=== PATIENT | female | born 1970 | race Caucasian/White ===

== ENCOUNTER → 2018-05-07 12:23 | Outpatient (CLI) | payer MEDICARE, OTHER, SELFPAY ==
--- NOTE | 2018-05-07 12:37 | XR_ITS ---
EXAM: XR lumbar spine min 4V HISTORY: Low back pain ITS.REASON: back pain ORDERING PHYSICIAN: Faustino Amador MD PATIENT AGE: 48 years COMPARISON: 05/14/2017 FINDINGS: Normal alignment. No fracture or dislocation. No lytic or blastic change. Small End plate osteophytes are present from L1 to L4. Mild degenerative disc disease L4-5 and L5-S1. IMPRESSION: Mild lumbar spondylosis overall no change from 05/14/2017
--- NOTE | 2018-05-07 12:37 | XR_ITS ---
XR hip RT 2-3V w/pelvis HISTORY: Right hip pain ITS.REASON: hip pain ORDERING PHYSICIAN: Faustino Amador MD PATIENT AGE: 48 years COMPARISON: None FINDINGS: No fracture or dislocation is evident. No significant degenerative change. There is increased density along the medial wall of the acetabulum. Possibly could represent summation artifact however, this is present on 3 images. Sclerosis at this region is a consideration. Consider CT of the pelvis for further evaluation. No other significant anomalies are evident. IMPRESSION: Possible sclerosis of the medial wall the right acetabulum. Consider CT for confirmation
[2018-05-07 13:55] LABS: Basophils % 0.3 % (0.1-2.0); Eosinophils # 0.2 K/mm3 (0.0-0.4); Eosinophils % 2.2 % (0.1-12.0); Hematocrit 44.7 % (37.0-47.0); Hemoglobin 14.5 g/dL (12.2-16.2); Lymphocytes # 2.3 K/mm3 (0.7-4.5); Lymphocytes % 24.1 K/mm3 (10-50); Mean Corpuscular HGB Conc 32.4 g/dL (31.8-35.4); Mean Corpuscular Hemoglobin 28.5 pg (27.0-31.2); Mean Corpuscular Volume 87.9 fl (81-99); Mean Platelet Volume 7.7 fl (7.4-10.4); Monocytes # 0.5 K/mm3 (0.1-1.0); Monocytes % 4.7 % (1.7-9.3); Neutrophils # 6.6 K/mm3 (1.8-7.8); Neutrophils % 68.7 % (37.0-80.0); Platelet Count 329 K/mm3 (142-424); Red Blood Count 5.09 M/mm3 (4.20-5.40); Red Cell Distribution Width 13.8 % (11.5-17.5); White Blood Count 9.5 K/mm3 (4.8-10.8)
[2018-05-07 14:56] LABS: Alanine Aminotransferase 43 U/L (12-78); Albumin Level 3.4 gm/dL (3.4-5.0); Albumin/Globulin Ratio 0.8 (1.1-1.8); Alkaline Phosphatase 140 U/L (46-116); Anion Gap 12.6 mEq/L (5-15); Aspartate Amino Transferase 23 U/L (15-37); Bilirubin,Total 0.3 mg/dL (0.2-1.0); Blood Urea Nitrogen 10 mg/dL (7-18); Calcium 9.5 mg/dL (8.5-10.1); Carbon Dioxide 28 mmol/L (21.0-32.0); Chloride 104 mmol/L (98-107); Chol/HDL Ratio 4.2 (1-3.5); Cholesterol 187 mg/dL (140-200); Creatinine,Serum 0.72 mg/dL (0.55-1.02); Estimated Glomerular Filt Rate 86 ml/min (>60); Free T4 (Free Thyroxine) 0.73 ng/dl (0.76-1.46); GFR (African American) 104 ML/MIN (>60); Globulin 4.4 gm/dl (1.3-3.2); Glucose 178 mg/dL (74-106); HDL Cholesterol 45 mg/dL (29-89); LDL Cholesterol 100 mg/dL (0-130); Potassium 4.6 mmoL/L (3.5-5.1); Sodium 140 mmol/L (136-145); Total Protein,Serum 7.8 gm/dL (6.4-8.2); Triglycerides 209 mg/dL (30-200); VLDL Cholesterol 42 mg/dL (0-40)
[2018-05-08 08:37] LABS: Hep A Ab, IgM Negative (Negative); Hepatitis B Core Antibody IgM Negative (Negative); Hepatitis B Surface Antigen Negative (Negative)
[2018-05-09 06:50] LABS: Hepatitis C Antibody 0.1 s/co ratio (0.0-0.9)
== END ==
PROVIDERS: Visit Provider Emergency Medicine
DX: G62.9 Polyneuropathy, unspecified (principal); E66.9 Obesity, unspecified; M79.7 Fibromyalgia; R10.9 Unspecified abdominal pain
CPT/HCPCS: 36415; 72110; 73502; 80053; 80061; 80074; 84439; 84443; 85025

== ENCOUNTER → 2018-06-19 08:03 | Outpatient (CLI) | payer MEDICARE, OTHER, SELFPAY | PROVIDERS: Family Provider Family Medicine Geriatric Medicine; PCP Nurse Practitioner Family; Visit Provider Emergency Medicine | DX: M25.551 Pain in right hip (principal) ==

== ENCOUNTER → 2018-07-01 10:17 | Outpatient (CLI) | payer MEDICARE, OTHER, SELFPAY | PROVIDERS: Visit Provider Emergency Medicine | DX: Z79.899 Other long term (current) drug therapy (principal) ==

== ENCOUNTER → 2018-08-01 16:33 | Outpatient (CLI) | payer MEDICARE, OTHER, SELFPAY ==
[2018-08-02 18:32] LABS: Amphetamine/Metha Screen,Urine Negative ng/mL (<1000); Barbiturates Screen,Urine Negative ng/mL (<200); Benzodiazepines Screen,Urine Negative ng/mL (<200); Cannabinoid Screen,Urine Negative ng/mL (<50); Cocaine Screen,Urine Negative ng/mL (<300); Methadone Screen,Urine Negative ng/mL (<300); Opiate Screen,Urine Positive ng/mL (<300); Phencyclidine Screen,Urine Negative ng/mL (<25)
== END ==
PROVIDERS: PCP Emergency Medicine; Visit Provider Emergency Medicine
DX: M79.7 Fibromyalgia (principal)
CPT/HCPCS: 80305

== ENCOUNTER → 2018-08-30 13:19 | Outpatient (CLI) | payer MEDICARE, OTHER, SELFPAY ==
[2018-08-30 14:47] LABS: Amphetamine/Metha Screen,Urine Negative ng/mL (<1000); Barbiturates Screen,Urine Negative ng/mL (<200); Benzodiazepines Screen,Urine Negative ng/mL (<200); Cannabinoid Screen,Urine Negative ng/mL (<50); Cocaine Screen,Urine Negative ng/mL (<300); Methadone Screen,Urine Negative ng/mL (<300); Opiate Screen,Urine Positive ng/mL (<300); Phencyclidine Screen,Urine Negative ng/mL (<25)
== END ==
PROVIDERS: PCP Emergency Medicine; Visit Provider Emergency Medicine
DX: M79.7 Fibromyalgia (principal)
CPT/HCPCS: 80305

== ENCOUNTER → 2018-10-09 10:27 | Outpatient (CLI) | payer MEDICARE, OTHER, SELFPAY ==
--- NOTE | 2018-10-09 10:30 | XR_ITS ---
XR shoulder RT min 2V HISTORY: Shoulder pain with limited range of motion ITS.REASON: pain ORDERING PHYSICIAN: Mandy Adhikari PATIENT AGE: 48 years Comparison: None FINDINGS: There are hypertrophic changes involving the acromioclavicular joint. No significant subacromial stenosis. There are mild degenerative changes of the glenohumeral joint. No fracture or dislocation. No lytic or blastic change. IMPRESSION: Mild degenerative changes, no acute finding
== END ==
PROVIDERS: PCP Emergency Medicine; Visit Provider Nurse Practitioner Family
DX: M25.511 Pain in right shoulder (principal)
CPT/HCPCS: 73030

== ENCOUNTER → 2018-11-04 17:39 | Outpatient (CLI) | payer MEDICARE, OTHER, MEDICAID, SELFPAY ==
[2018-11-04 18:48] LABS: Amphetamine/Metha Screen,Urine Negative ng/mL (<1000); Barbiturates Screen,Urine Negative ng/mL (<200); Benzodiazepines Screen,Urine Negative ng/mL (<200); Cannabinoid Screen,Urine Negative ng/mL (<50); Cocaine Screen,Urine Negative ng/mL (<300); Methadone Screen,Urine Negative ng/mL (<300); Opiate Screen,Urine Negative ng/mL (<300); Phencyclidine Screen,Urine Negative ng/mL (<25)
[2018-11-12 16:12] LABS: Opiates Negative ng/mL (Cutoff=100)
== END ==
LOC: LAB 17:40 → LAB.DROPOF 11-05 08:37
PROVIDERS: Visit Provider Emergency Medicine
DX: M54.2 Cervicalgia (principal)
CPT/HCPCS: 80305; 80361; G0480

== ENCOUNTER 2019-01-17 20:29 | Emergency (ER) | payer MEDICARE, OTHER, SELFPAY ==
[2019-01-17 20:32] VITALS: BP 152/67; PULSE 72; RESP 16; TEMP 36.8; O2SAT 98; BMI 82.6
[2019-01-17 22:02] VITALS: BP 152/67; PULSE 80; RESP 20; O2SAT 99
--- NOTE | 2019-01-17 22:09 | PC.NURSE ---
verbal order for 1 mg of stadol and 25 mg of phenergran given by
--- NOTE | 2019-01-17 22:10 | HMH.EDHA ---
ED Disposition Clinical Impression: Migraine Qualifiers: Migraine type: unspecified Status migrainosus presence: without status migrainosus Intractability: not intractable Qualified Code(s): G43.909 - Migraine, unspecified, not intractable, without status migrainosus Obesity Qualifiers: Obesity type: due to excess calories Obesity classification: adult class 3 (BMI >= 40) Serious obesity comorbidity presence: with serious comorbidity Body mass index: BMI 70 or greater Qualified Code(s): E66.01 - Morbid (severe) obesity due to excess calories; Z68.45 - Body mass index (BMI) 70 or greater, adult Disposition: Home, Self-Care Condition on Discharge: Good Instructions: DI for Migraine Additional Instructions: see pcp for follow up Referrals: Faustino Amador MD [Primary Care Provider] - - Critical Care Critical Care Time: No Attestation: On 01/17/19, the high probability of a clinically significant, sudden or life threatening deterioration of the following system(s) required my full and direct attention, intervention and personal management. The time I documented below is in addition to time spent performing reported procedures but includes the following listed in this critical care notation. Medical Decision Making - Medical Records Medical records reviewed: Yes: I reviewed the patient's medical records. - Sukhjinder Inquiry Pt receiving controlled substance: No Vital Signs: 01/17/19 20:32 Temperature 98.3 F Temperature Source Oral Pulse Rate [Right Brachial] 72 Respiratory Rate 16 Blood Pressure [Right Arm] 152/67 H Blood Pressure Mean [Right Arm] 95 Blood Pressure Source [Right Arm] Automatic Cuff Blood Pressure Position [Right Arm] Sitting 02 Sat by Pulse Oximetry 98 Oxygen Delivery Method Room Air Orders (Tests/Meds): ED MEDICATIONS Discontinued Medications Generic Name Dose Route Start Last Admin Trade Name Freq PRN Reason Stop Dose Admin Butorphanol Tartrate 1 mg 01/17/19 22:08 Stadol 1mg/1ml Vial IM 01/17/19 22:09 ONCE ONE Promethazine HCl 25 mg 01/17/19 22:08 Phenergan 25mg/Ml 1ml Vial IM 01/17/19 22:09 ONCE ONE Sodium Chloride 25 ml 01/17/19 22:08 Sod Chlor 0.9% 25ml Bag IV 01/17/19 22:09 ONCE ONE Headache HPI - General Chief Complaint: Headache Stated Complaint: BENITO Time Seen by Provider: 01/17/19 22:11 Mode of Arrival: Ambulatory Source of Information: Patient, Significant Other, Medical Record Limitations: No Limitations Description of Symptoms (Recalled from ER Triage Doc. by RN): Pt advises she has had a migraine for 4 days - History of Present Illness HPI Narrative: rt sided migraine benito for 4 days - no fever or rash and no trauma - no focal neuro sx MD Complaint: migraine Onset (ago): day(s) Onset description: gradual Location: right, temporal Severity: similar to previous episodes Quality: throbbing, similar to previous headaches Context: occurred at rest Associated symptoms: none Treatments prior to arrival: none - Related Data Home Medications Medication Instructions Recorded Confirmed albuterol sulfate HFA 90 2 puff INHALATION QID g 04/16/18 01/13/19 mcg/actuation aerosol inhaler amitriptyline 100 mg tablet 100 mg PO QHS 04/16/18 01/13/19 apixaban 5 mg tablet 5 mg PO BID 04/16/18 01/13/19 duloxetine 60 mg capsule,delayed 60 mg PO DAILY cap 04/16/18 01/13/19 release escitalopram 20 mg tablet 20 mg PO DAILY tab 04/16/18 01/13/19 fenofibrate micronized 54 mg tablet 54 mg PO DAILY tab 04/16/18 01/13/19 furosemide 80 mg tablet 80 mg PO BID tab 04/16/18 01/13/19 levothyroxine 300 mcg tablet 300 mcg PO DAILY tab 04/16/18 01/13/19 losartan 100 mg tablet 100 mg PO DAILY tab 04/16/18 01/13/19 metoprolol tartrate 50 mg tablet 50 mg PO BID 04/16/18 01/13/19 nitroglycerin 0.4 mg sublingual 0.4 mg SUBLINGUAL Q5-15M 04/16/18 01/13/19 tablet pantoprazole 40 mg tablet,delayed 40 mg PO DAILY tab 04/16/18
--- NOTE | 2019-01-17 22:13 | ED_ITS ---
ED Disposition Clinical Impression: Migraine Qualifiers: Migraine type: unspecified Status migrainosus presence: without status migrainosus Intractability: not intractable Qualified Code(s): G43.909 - Migraine, unspecified, not intractable, without status migrainosus Obesity Qualifiers: Obesity type: due to excess calories Obesity classification: adult class 3 (BMI >= 40) Serious obesity comorbidity presence: with serious comorbidity Body mass index: BMI 70 or greater Qualified Code(s): E66.01 - Morbid (severe) obesity due to excess calories; Z68.45 - Body mass index (BMI) 70 or greater, adult Disposition: Home, Self-Care Condition on Discharge: Good Instructions: DI for Migraine Additional Instructions: see pcp for follow up Referrals: Faustino Amador MD [Primary Care Provider] - - Critical Care Critical Care Time: No Attestation: On 01/17/19, the high probability of a clinically significant, sudden or life threatening deterioration of the following system(s) required my full and direct attention, intervention and personal management. The time I documented below is in addition to time spent performing reported procedures but includes the following listed in this critical care notation. Medical Decision Making - Medical Records Medical records reviewed: Yes: I reviewed the patient's medical records. - Sukhjinder Inquiry Pt receiving controlled substance: No Vital Signs: 01/17/19 20:32 Temperature 98.3 F Temperature Source Oral Pulse Rate [Right Brachial] 72 Respiratory Rate 16 Blood Pressure [Right Arm] 152/67 H Blood Pressure Mean [Right Arm] 95 Blood Pressure Source [Right Arm] Automatic Cuff Blood Pressure Position [Right Arm] Sitting 02 Sat by Pulse Oximetry 98 Oxygen Delivery Method Room Air Orders (Tests/Meds): ED MEDICATIONS Discontinued Medications Generic Name Dose Route Start Last Admin Trade Name Freq PRN Reason Stop Dose Admin Butorphanol Tartrate 1 mg 01/17/19 22:08 Stadol 1mg/1ml Vial IM 01/17/19 22:09 ONCE ONE Promethazine HCl 25 mg 01/17/19 22:08 Phenergan 25mg/Ml 1ml Vial IM 01/17/19 22:09 ONCE ONE Sodium Chloride 25 ml 01/17/19 22:08 Sod Chlor 0.9% 25ml Bag IV 01/17/19 22:09 ONCE ONE Headache HPI - General Chief Complaint: Headache Stated Complaint: BENITO Time Seen by Provider: 01/17/19 22:11 Mode of Arrival: Ambulatory Source of Information: Patient, Significant Other, Medical Record Limitations: No Limitations Description of Symptoms (Recalled from ER Triage Doc. by RN): Pt advises she has had a migraine for 4 days - History of Present Illness HPI Narrative: rt sided migraine benito for 4 days - no fever or rash and no trauma - no focal neuro sx MD Complaint: migraine Onset (ago): day(s) Onset description: gradual Location: right, temporal Severity: similar to previous episodes Quality: throbbing, similar to previous headaches Context: occurred at rest Associated symptoms: none Treatments prior to arrival: none - Related Data Home Medications Medication Instructions Recorded Confirmed albuterol sulfate HFA 90 2 puff INHALATION QID g 04/16/18 01/13/19 mcg/actuation aero
[2019-01-17 22:26] VITALS: BP 147/72; PULSE 87; RESP 16; TEMP 36.8; O2SAT 100
== END 2019-01-17 22:27 | disposition home or self-care (01) ==
PROVIDERS: Emergency Provider Emergency Medicine; PCP Emergency Medicine
DX: G43.909 Migraine, unspecified, not intractable, without status migrainosus (principal); F41.9 Anxiety disorder, unspecified; E03.9 Hypothyroidism, unspecified; Z51.81 Encounter for therapeutic drug level monitoring; E11.9 Type 2 diabetes mellitus without complications; K21.9 Gastro-esophageal reflux disease without esophagitis; E78.5 Hyperlipidemia, unspecified; I10 Essential (primary) hypertension; J44.9 Chronic obstructive pulmonary disease, unspecified
CPT/HCPCS: 96372; 99282; J0595

== ENCOUNTER 2019-02-17 20:22 | Observation (INO) | payer MEDICARE, OTHER, SELFPAY ==
[2019-02-17] VITALS (9 sets, daily range): BP systolic 109–160; BP diastolic 55–96; PULSE 84–93; RESP 15; TEMP 36.9–37; O2SAT 92–98; BMI 82.6
--- NOTE | 2019-02-17 20:30 | XR_ITS ---
XR chest portable HISTORY: Chest pain ITS.REASON: cp ORDERING PHYSICIAN: Faustino Amador MD PATIENT AGE: 48 years COMPARISON: 02/25/2017 FINDINGS: The cardiomediastinal silhouette and pulmonary vascularity are within normal limits. The lungs are clear without infiltrates, suspicious nodules, or pleural effusions. No acute bony abnormalities. IMPRESSION: Negative chest, no acute finding
[2019-02-17 21:24] LABS: Basophils # 0.1 K/mm3 (0-0.2); Basophils % 0.6 % (0.1-2.0); Eosinophils # 0.2 K/mm3 (0.0-0.4); Eosinophils % 1.9 % (0.1-12.0); Hematocrit 44.1 % (37.0-47.0); Hemoglobin 14.8 g/dL (12.2-16.2); Lymphocytes % 20.5 % (10-50); Mean Corpuscular HGB Conc 33.5 g/dL (31.8-35.4); Mean Corpuscular Hemoglobin 29.2 pg (27.0-31.2); Mean Corpuscular Volume 87.4 fl (81-99); Mean Platelet Volume 7.6 fl (7.4-10.4); Monocytes # 0.5 K/mm3 (0.1-1.0); Monocytes % 5.4 % (1.7-9.3); Neutrophils # 6.8 K/mm3 (1.8-7.8); Neutrophils % 71.5 % (37.0-80.0); Platelet Count 302 K/mm3 (142-424); Red Blood Count 5.05 M/mm3 (4.20-5.40); Red Cell Distribution Width 13.3 % (11.5-17.5); White Blood Count 9.5 K/mm3 (4.8-10.8)
[2019-02-17 21:41] LABS: Anion Gap 11.9 mEq/L (5-15); Blood Urea Nitrogen 11 mg/dL (7-18); Carbon Dioxide 28 mmol/L (21.0-32.0); Chloride 94 mmol/L (98-107); Creatinine Clearance Estimated 80 mL/min (50-200); Estimated Glomerular Filt Rate 76 ml/min (>60); GFR (African American) 92 ML/MIN (>60); Glucose 420 mg/dL (74-106); Potassium 3.9 mmoL/L (3.5-5.1); Sodium 130 mmol/L (136-145); Troponin I < 0.02 ng/ml (0.00-0.06)
--- NOTE | 2019-02-17 21:55 | HMH.EDCP ---
ED Disposition Clinical Impression: Fibromyalgia Chest pain Qualifiers: Chest pain type: precordial pain Qualified Code(s): R07.2 - Precordial pain Hypothyroidism Qualifiers: Hypothyroidism type: acquired Qualified Code(s): E03.9 - Hypothyroidism, unspecified Obesity Qualifiers: Obesity type: due to excess calories Obesity classification: adult class 3 (BMI >= 40) Serious obesity comorbidity presence: with serious comorbidity Body mass index: BMI 70 or greater Qualified Code(s): E66.01 - Morbid (severe) obesity due to excess calories; Z68.45 - Body mass index (BMI) 70 or greater, adult Disposition: Admitted as Observation Condition on Discharge: Good Referrals: Faustino Amador MD [Primary Care Provider] - - Critical Care Critical Care Time: No Attestation: On 02/17/19, the high probability of a clinically significant, sudden or life threatening deterioration of the following system(s) required my full and direct attention, intervention and personal management. The time I documented below is in addition to time spent performing reported procedures but includes the following listed in this critical care notation. Medical Decision Making - Medical Records Medical records reviewed: Yes: I reviewed the patient's medical records. - Sukhjinder Inquiry Pt receiving controlled substance: No Vital Signs: 02/17/19 20:23 02/17/19 21:05 02/17/19 21:21 Temperature 98.5 F Temperature Source Oral Pulse Rate [Right Brachial] 90 86 87 Respiratory Rate 15 15 Blood Pressure [Right Arm] 160/96 H 109/71 L 109/71 L Blood Pressure Mean [Right Arm] 117 83 83 02 Sat by Pulse Oximetry 92 L 97 97 Oxygen Delivery Method Room Air Room Air 02/17/19 21:30 Temperature Temperature Source Pulse Rate [Right Brachial] 93 H Respiratory Rate 15 Blood Pressure [Right Arm] 118/55 L Blood Pressure Mean [Right Arm] 76 02 Sat by Pulse Oximetry 96 Oxygen Delivery Method Room Air - Lab Data Lab results reviewed: Yes: I reviewed the patient's lab results. Lab Results 02/17/19 21:14: WBC 9.5, RBC 5.05, Hgb 14.8, Hct 44.1, MCV 87.4, MCH 29.2, MCHC 33.5, RDW 13.3, Plt Count 302, MPV 7.6, Neut % (Auto) 71.5, Lymph % (Auto) 20.5, Davis % (Auto) 5.4, Eos % (Auto) 1.9, Baso % (Auto) 0.6, Neut # (Auto) 6.8, Lymph # (Auto) 2.0, Davis # (Auto) 0.5, Eos # (Auto) 0.2, Baso # (Auto) 0.1 02/17/19 21:14: Sodium 130 L, Potassium 3.9, Chloride 94 L, Carbon Dioxide 28, Anion Gap 11.9, BUN 11, Creatinine 0.80, Estimated Creat Clear 80, Estimated GFR 76, Est GFR ( Amer) 92, Glucose 420 H*, Calcium 9.0, Troponin I < 0.02 Result diagrams: 02/17/19 21:14 02/17/19 21:14 Orders (Tests/Meds): ED MEDICATIONS Generic Name Dose Route Start Last Admin Trade Name Freq PRN Reason Stop Dose Admin Nitroglycerin 0.4 mg 02/17/19 20:31 Nitrostat 0.4mg Sl Tablet SL 03/19/19 20:30 [id number] PRN Chest Pain Discontinued Medications Generic Name Dose Route Start Last Admin Trade Name Freq PRN Reason Stop Dose Admin Ketorolac Tromethamine 30 mg 02/17/19 21:21 02/17/19 21:25 Toradol 30mg/Ml Vial IV 02/17/19 21:22 30 mg ONCE ONE Administration Nitroglycerin 1 gm 02/17/19 21:45 02/17/19 21:46 Nitroglycerin 1 Inch Oint Udp TD 02/17/19 21:46 1 gm ONCE ONE Administration ORDERS Category Date Time Status XR chest portable Stat Exams 02/17/19 20:30 Taken ECG Request by /Nse Stat Y 02/17/19 20:30 Ordered - Radiology Data #1 Image(s): Chest Image Reviewed: Yes I reviewed the patient's radiology image Preliminary Findings: Normal/NAD - ECG Data Tracing #1 Normal Sinus Rhythm: Yes Ischemic changes: non-specific ST-T wave changes Chest Pain HPI - General Chief Complaint: Chest Pain Stated Complaint: chest pain Time Seen by Provider: 02/17/19 20:35 Mode of Arrival: EMS Source of Information: Patient, EMS, Medical Record Limitations: No Limitations Description of Symptoms (Recalled
--- NOTE | 2019-02-17 22:18 | PC.NURSE ---
dr roberts paged
--- NOTE | 2019-02-17 22:24 | PC.NURSE ---
spoke with [facility], stated that pt would not be a candidate for a heart cath at this facility d/t weight.
[2019-02-18] VITALS: PULSE 90
--- NOTE | 2019-02-18 00:15 | PC.NURSE ---
LATE ENTRY; @ [id number] 02/17/19, ARRIVED TO FLOOR FROM ED
[2019-02-18 00:52] LABS: POC Glucose,Bedside 380 (70-110)
[2019-02-18 01:40] VITALS: RESP 16
[2019-02-18 02:17] LABS: Troponin I < 0.02 ng/ml (0.00-0.06)
[2019-02-18 04:00] VITALS: PULSE 90
[2019-02-18 04:06] VITALS: BP 147/73; PULSE 87; RESP 20; TEMP 36.8; O2SAT 99; BMI 77.5
[2019-02-18 05:42] LABS: POC Glucose,Bedside 338 (70-110)
[2019-02-18 05:52] LABS: Basophils # 0.1 K/mm3 (0-0.2); Basophils % 0.7 % (0.1-2.0); Eosinophils # 0.3 K/mm3 (0.0-0.4); Eosinophils % 3.3 % (0.1-12.0); Hematocrit 45.9 % (37.0-47.0); Hemoglobin 15.3 g/dL (12.2-16.2); Lymphocytes % 25.4 % (10-50); Mean Corpuscular HGB Conc 33.4 g/dL (31.8-35.4); Mean Corpuscular Hemoglobin 29.6 pg (27.0-31.2); Mean Corpuscular Volume 88.5 fl (81-99); Mean Platelet Volume 7.7 fl (7.4-10.4); Monocytes # 0.5 K/mm3 (0.1-1.0); Monocytes % 5.8 % (1.7-9.3); Neutrophils # 5.1 K/mm3 (1.8-7.8); Neutrophils % 64.9 % (37.0-80.0); Platelet Count 239 K/mm3 (142-424); Red Blood Count 5.18 M/mm3 (4.20-5.40); Red Cell Distribution Width 13.3 % (11.5-17.5); White Blood Count 7.9 K/mm3 (4.8-10.8)
--- NOTE | 2019-02-18 05:56 | PC.NURSE ---
0600 courtesy check; pt up to bathroom, no other needs voiced
[2019-02-18 06:09] LABS: Anion Gap 11.4 mEq/L (5-15); Blood Urea Nitrogen 13 mg/dL (7-18); Calcium 8.6 mg/dL (8.5-10.1); Carbon Dioxide 30 mmol/L (21.0-32.0); Chloride 94 mmol/L (98-107); Chol/HDL Ratio 4.3 (1-3.5); Cholesterol 208 mg/dL (140-200); Creatinine Clearance Estimated 81 mL/min (50-200); Creatinine,Serum 0.79 mg/dL (0.55-1.02); Estimated Glomerular Filt Rate 77 ml/min (>60); GFR (African American) 94 ML/MIN (>60); Glucose 354 mg/dL (74-106); HDL Cholesterol 48 mg/dL (29-89); LDL Cholesterol 130 mg/dL (0-130); Sodium 131 mmol/L (136-145); Triglycerides 152 mg/dL (30-200); VLDL Cholesterol 30 mg/dL (0-40)
--- NOTE | 2019-02-18 06:09 | PC.NURSE ---
FLORES GARCIA, NOTIFIED OF CONSULT FOR DR. CASTELLANOS.
[2019-02-18 06:10] LABS: Potassium 4.4 mmoL/L (3.5-5.1); Troponin I < 0.02 ng/ml (0.00-0.06)
--- NOTE | 2019-02-18 06:42 | PC.NURSE ---
Pt is A&Ox4 and was admitted this shift d/t chest pain. Pt has continued to complain of left, anterior chest pain that radiates below her left breast. Pt reports mild relief from morphine. Pt also c/o of a headache, medicated w/. Tylenol PO with mild relief, pt educated this can be a side effect of the nitro paste. Pt has ambulated w/ staff assist to BR, pt also has urinary incontinence. ABD is large, soft, and non-tender, active BS noted. Pt denies any V/D. Pt did states upon the arrival to the floor that her nausea was unrelieved but soon after requested food as she hasn't ate all day . Pt provided with low fat/sodium soup, diet soda, and 1 package of saltines. Pt has not c/o any further nausea. NSR noted on cardiac monitoring. Call light within reach will continue to monitor.
--- NOTE | 2019-02-18 07:28 | P.CONPHA_ITS ---
[facility] Pharmacy VTE Monitoring - Patient Demographics Admission date: 02/18/19 Report Date: 02/18/19 Time: 07:28 Allergies/Adverse Reactions: Patient Allergies ceftriaxone [From ROCEPHIN] Allergy (Unknown, Verified 01/13/19 13:54) droperidol [From INAPSINE] Allergy (Unknown, Verified 01/13/19 13:54) ibuprofen [IBUPROFEN] Allergy (Unknown, Verified 01/13/19 13:54) moxifloxacin [From AVELOX] Allergy (Unknown, Verified 01/13/19 13:54) Height: 1.68 m Weight: 217.894 kg Patient Problems: Current Active Problems (Updated 02/17/19 @ 22:32 by Faustino Amador MD) Chest pain (Acute) Obesity (Chronic) Fibromyalgia (Chronic) Hypothyroidism (Chronic) - VTE Risk Labs: VTE Related Lab Results Hgb 15.3 g/dL (12.2-16.2) 02/18/19 05:44 Hct 45.9 % (37.0-47.0) 02/18/19 05:44 Plt Count 239 K/mm3 (142-424) 02/18/19 05:44 BUN 13 mg/dL (7-18) 02/18/19 05:44 Creatinine 0.79 mg/dL (0.55-1.02) 02/18/19 05:44 Estimated Creat Clear 81 mL/min (50-200) 02/18/19 05:44 Was VTE Risk Assessment Performed: Yes VTE Score: 12 VTE Risk Level: Moderate Risk Clinical Trial Participant: No - Prophylaxis VTE Prophylaxis Ordered?: Yes Types of VTE Prophylaxis: TEDS Knee High, Pharmacological Pharmacologic Type: Other (ELIQUIS)
--- NOTE | 2019-02-18 07:40 | HMH.CNCARD ---
History of Present Illness Consult date: 02/18/19 Requesting physician: Faustino Amador Consult reason: chest pain Chief complaint: chest pain Additional Medical History:: 1. DM, insulin treated for 10 yrs 2. HTN A. History of CHF per patient, likely secondary to diastolic dysfunction B. Echo, 01/2019, normal LVEF without significant valve disease. 3. Hyperlipidemia, on statin and fibrate therapy 4. Former smoker, 2 ppd for 25 yrs, stopped 2015 5. Morbid obesity, BMI >70 6. FH of CAD in both parents who were diabetics also 7. 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 DDD of lower back History of present illness: 48-year-old white female with diabetes, hypertension, hyperlipidemia and former smoker presented to the emergency department for evaluation of chest pain. She describes the chest pain as a sharp stabbing sensation on the left side with radiation into the left arm. She denies any nausea, vomiting or diaphoresis. She does have a history of GERD. Patient noted some improvement in the chest discomfort with nitroglycerin but no resolution of symptoms with Nitropaste overnight. Cardiac troponins have returned normal x3. EKG is sinus with no acute ST segment changes. Preliminary echocardiogram this morning shows normal left ventricular ejection fraction with only mild tricuspid regurgitation. Patient denies any aggravating or alleviating factors in her chest pain. She does relate a cardiac catheterization approximately 15 years ago that was reportedly okay with no need for intervention. [facility] History Medical History: Reports:: Anxiety, Congestive Heart Failure, Chronic Obstructive Pulmonary Disease (COPD), Diabetes Mellitus Type 2, Gastroesophageal Reflux Disease(GERD), Hyperlipidemia, Hypertension, MRSA Denies:: Cancer *Have you ever received a pneumonia vaccine?: Yes *Have you received a flu vaccine this season?: Yes Other Medical History: Reports: Anemia, Arthritis, Hypothyroidism, Thyroid Disease Laterality Cases: Bilateral: Total Knee Replacement Other Surgeries: Yes: Cardiac Catheterization Amputation: No Fractures: No - *Social History Educational Level: Completed High School Smoking Status: Former smoker Tobacco Type: cigarettes # Packs/Day (cigarettes): 2 Alcohol Intake: never Substance Use Type: denies use *Occupational Status:: disabled Housing: house *Travel in the last 8 weeks: None - Psychiatric History Expresses thoughts of harming self/others: None Suicide Plan Description: No Plan Pschychiatric History:: Reports:: Anxiety Family Hx:: Hypertension, Hyperlipidemia, Cancer, Diabetes Meds Home Medications Medication Instructions Recorded Confirmed Type albuterol sulfate HFA 90 2 puff INHALATION QID g 04/16/18 02/18/19 History mcg/actuation aerosol inhaler amitriptyline 100 mg tablet 100 mg PO QHS 04/16/18 02/18/19 History apixaban 5 mg tablet 5 mg PO BID 04/16/18 02/18/19 History duloxetine 60 mg capsule,delayed 60 mg PO DAILY cap 04/16/18 02/18/19 History release fenofibrate micronized 54 mg tablet 54 mg PO DAILY tab 04/16/18 02/18/19 History furosemide 80 mg tablet 80 mg PO BID tab 04/16/18 02/18/19 History levothyroxine 300 mcg tablet 300 mcg PO DAILY tab 04/16/18 02/18/19 History losartan 100 mg tablet 100 mg PO DAILY tab 04/16/18 02/18/19 History metoprolol tartrate 50 mg tablet 50 mg PO BID 04/16/18 02/18/19 History nitroglycerin 0.4 mg sublingual 0.4 mg SUBLINGUAL Q5-15M 04/16/18 02/18/19 History tablet pantoprazole 40 mg tablet,delayed 40 mg PO DAILY tab 04/16/18 02/18/19 History release simvastatin 40 mg tablet 40 mg PO QPM 04/16/18 02/18/19 History Insulin Degludec [Tresiba 150 unit SUB-Q BID 02/17/19 02/18/19 History FlexTouch U-100] Insulin Regular, Human [Humulin R 1 sliding scale dose SQ TID 02/17/19 02/18/19 History Regular U-100 Insuln] Nystatin [Nystatin Cr 100,000 1 applic TOPICAL BID 02/17/19 02/18/19 History Units/GM 30GM] Levon
--- NOTE | 2019-02-18 07:43 | P.CONS_ITS ---
History of Present Illness Consult date: 02/18/19 Requesting physician: Faustino Amador Consult reason: chest pain Chief complaint: chest pain Additional Medical History:: 1. DM, insulin treated for 10 yrs 2. HTN A. History of CHF per patient, likely secondary to diastolic dysfunction B. Echo, 01/2019, normal LVEF without significant valve disease. 3. Hyperlipidemia, on statin and fibrate therapy 4. Former smoker, 2 ppd for 25 yrs, stopped 2015 5. Morbid obesity, BMI >70 6. FH of CAD in both parents who were diabetics also 7. 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 DDD of lower back History of present illness: 48-year-old white female with diabetes, hypertension, hyperlipidemia and former smoker presented to the emergency department for evaluation of chest pain. She describes the chest pain as a sharp stabbing sensation on the left side with radiation into the left arm. She denies any nausea, vomiting or diaphoresis. She does have a history of GERD. Patient noted some improvement in the chest discomfort with nitroglycerin but no resolution of symptoms with Nitropaste overnight. Cardiac troponins have returned normal x3. EKG is sinus with no acute ST segment changes. Preliminary echocardiogram this morning shows normal left ventricular ejection fraction with only mild tricuspid regurgitation. Patient denies any aggravating or alleviating factors in her chest pain. She does relate a cardiac catheterization approximately 15 years ago that was reportedly okay with no need for intervention. [facility] History Medical History: Reports:: Anxiety, Congestive Heart Failure, Chronic Obstructive Pulmonary Disease (COPD), Diabetes Mellitus Type 2, Gastroesophageal Reflux Disease(GERD), Hyperlipidemia, Hypertension, MRSA Denies:: Cancer *Have you ever received a pneumonia vaccine?: Yes *Have you received a flu vaccine this season?: Yes Other Medical History: Reports: Anemia, Arthritis, Hypothyroidism, Thyroid Disease Laterality Cases: Bilateral: Total Knee Replacement Other Surgeries: Yes: Cardiac Catheterization Amputation: No Fractures: No - *Social History Educational Level: Completed High School Smoking Status: Former smoker Tobacco Type: cigarettes # Packs/Day (cigarettes): 2 Alcohol Intake: never Substance Use Type: denies use *Occupational Status:: disabled Housing: house *Travel in the last 8 weeks: None - Psychiatric History Expresses thoughts of harming self/others: None Suicide Plan Description: No Plan Pschychiatric History:: Reports:: Anxiety Family Hx:: Hypertension, Hyperlipidemia, Cancer, Diabetes Meds Home Medications Medication Instructions Recorded Confirmed Type albuterol sulfate HFA 90 2 puff INHALATION QID g 04/16/18 02/18/19 History mcg/actuation aerosol inhaler amitriptyline 100 mg tablet 100 mg PO QHS 04/16/18 02/18/19 History apixaban 5 mg tablet 5 mg PO BID 04/16/18 02/18/19 History duloxetine 60 mg capsule,delayed 60 mg PO DAILY cap 04/16/18 02/18/19 History release fenofibrate micronized 54 mg tablet 54 mg PO DAILY tab 04/16/18 02/18/19 History furosemide 80 mg tablet 80 mg PO BID tab 04/16/18 02/18/19 History levothyroxine 300 mcg tablet 300 mcg PO DAILY tab 04/16/18 02/18/19 History losartan 100 mg tablet 100 mg PO DAILY tab 04/16/18 02/18/19 History metoprolol tartrate 50 mg tablet 50 mg PO BID 04/16/18 02/18/19 History nitroglycerin 0.4 mg sublingual 0.4 mg SUBLINGUAL Q5-15M 04/16/18 02/18/19 History
[2019-02-18 08:00] VITALS: BP 129/70; PULSE 91; RESP 22; TEMP 36.1; O2SAT 97
--- NOTE | 2019-02-18 08:00 | CA_ITS ---
PROCEDURE: 2-D M-mode and color Doppler study INDICATIONS FOR THE TEST: Chest pain+ COPD+ Heart Murmur Tobacco Smoking Palpitations Fatigue Syncope Edema+ Hypertension+Diabetes Mellitus+ Rheumatic Fever SOB+WONG Obesity+Hyperlipidemia+ Family History HD Additional History CAD, GERD, CHF PATIENT INFORMATION HEIGHT: 66 WEIGHT:512 GENDER: Female B/P:109/71 2-D/M-MODE INTERPRETATION: 2-D MEASUREMENTS OBSERVED VALUES IN CMS Right Ventricular Dimension (RVDd) 2.4 Interventricular Septum (Thickness)(IVsd) 1.6 Left Ventricular Internal Dimensions(LVIDd) 4.8 Left Ventricular Posterior Wall (Thickness)(LVPWd) 1.3 Aortic Root 3.2 Aortic Cusp Separation 1.9 Left Atrial Dimensions (LAD) 4.8 2D 1. Left atrium is mildly enlarged, left ventricle is normal size, mild concentric left ventricular hypertrophy, visually estimated ejection fraction 55% motion abnormality. 2. The right atrium and ventricle are mildly enlarged with normal contractility. 3. The aortic valve is minimally thickened and calcified leaflet continue to display mobility. 4. The mitral and tricuspid valve leaflets are normal 5. The pulmonic valve is poorly visualized. 6. No significant pericardial effusion noted. DOPPLER INTERROGATION: Doppler interrogation of the aortic, mitral and tricuspid valve mild mitral and tricuspid regurgitation, tricuspid regurgitation jet velocity is inadequate for calculation of the right ventricular systolic pressure. Grade 1 diastolic dysfunction seen with tissue Doppler evidence of raised left atrial pressure, inferior vena cava is not well visualized. CONCLUSION: 1. Mildly enlarged left atrium, normal left ventricular size, mild concentric left ventricular hypertrophy, visually estimated ejection fraction 55%, with no regional wall motion abnormality, grade 1 diastolic dysfunction seen with tissue Doppler evidence of raised left atrial pressure. 2. Mildly enlarged left ventricle with normal contractility. 3. Mild mitral and tricuspid regurgitation. 4. No significant pericardial effusion noted.
--- NOTE | 2019-02-18 08:40 | HMH.HPDC ---
General - General Admission date:: 02/17/19 Discharge date: 02/18/19 *Admission Date: 02/18/19 *Chief complaint: chest pain *History of present illness: 48-year-old white female with diabetes, hypertension, hyperlipidemia and former smoker presented to the emergency department for evaluation of chest pain. She describes the chest pain as a sharp stabbing sensation on the left side with radiation into the left arm. She denies any nausea, vomiting or diaphoresis. She does have a history of GERD. Patient noted some improvement in the chest discomfort with nitroglycerin but no resolution of symptoms with Nitropaste overnight. Cardiac troponins have returned normal x3. EKG is sinus with no acute ST segment changes. Preliminary echocardiogram this morning shows normal left ventricular ejection fraction with only mild tricuspid regurgitation. Patient denies any aggravating or alleviating factors in her chest pain. She does relate a cardiac catheterization approximately 15 years ago that was reportedly okay with no need for intervention.-per chase bernal [facility] History I have reviewed the patient's past medical history: Yes Medical History: Reports:: Anxiety, Congestive Heart Failure, Chronic Obstructive Pulmonary Disease (COPD), Diabetes Mellitus Type 2, Gastroesophageal Reflux Disease(GERD), Hyperlipidemia, Hypertension, MRSA Denies:: Cancer *Have you ever received a pneumonia vaccine?: Yes *Have you received a flu vaccine this season?: Yes Other Medical History: Reports: Anemia, Arthritis, Hypothyroidism, Thyroid Disease Laterality Cases: Bilateral: Total Knee Replacement Other Surgeries: Yes: Cardiac Catheterization Amputation: No Fractures: No - *Social History Educational Level: Completed High School Smoking Status: Former smoker Tobacco Type: cigarettes # Packs/Day (cigarettes): 2 Alcohol Intake: never Substance Use Type: denies use *Occupational Status:: disabled Housing: house *Travel in the last 8 weeks: None - Psychiatric History Expresses thoughts of harming self/others: None Suicide Plan Description: No Plan Pschychiatric History:: Reports:: Anxiety Family Hx:: Hypertension, Hyperlipidemia, Cancer, Diabetes Review of Systems - Review of Systems Review of systems:: pertinent systems reviewed and negative unless documented below - Constitutional Denies body ache(s), Denies fever(s) - Eyes Denies change in vision - ENT Denies change in voice - *Cardiovascular Reports chest pain - *Respiratory Reports shortness of breath with activity, Denies cough, Denies shortness of breath - *Gastrointestinal Denies bloating - *Genitourinary Denies urinary incontinence - *Musculoskeletal Denies decreased muscle mass - Integumentary/Breasts Denies rash - *Neurologic Denies dizziness, Denies seizure-like activity - Psychiatric Denies anxiety - Endocrine Denies flushing - Hematologic/Lymphatic Denies enlarged lymph nodes - Allergic/Immunologic Denies tongue swelling Exam Vital signs and Labs for Last 24 Hours: Temp Pulse Resp BP Pulse Ox 97.0 F L 91 H 22 129/70 97 02/18/19 08:00 02/18/19 08:00 02/18/19 08:00 02/18/19 08:00 02/18/19 08:00 Laboratory Results - last 24 hr 02/17/19 21:14: WBC 9.5, RBC 5.05, Hgb 14.8, Hct 44.1, MCV 87.4, MCH 29.2, MCHC 33.5, RDW 13.3, Plt Count 302, MPV 7.6, Neut % (Auto) 71.5, Lymph % (Auto) 20.5, [place] % (Auto) 5.4, Eos % (Auto) 1.9, Baso % (Auto) 0.6, Neut # (Auto) 6.8, Lymph # (Auto) 2.0, [place] # (Auto) 0.5, Eos # (Auto) 0.2, Baso # (Auto) 0.1 02/17/19 21:14: Sodium 130 L, Potassium 3.9, Chloride 94 L, Carbon Dioxide 28, Anion Gap 11.9, BUN 11, Creatinine 0.80, Estimated Creat Clear 80, Estimated GFR 76, Est GFR ( Amer) 92, Glucose 420 H*, Calcium 9.0, Troponin I < 0.02 02/18/19 00:41: POC Glucose 380 H* 02/18/19 01:46: Troponin I < 0.02 02/18/19 05:29: POC Glucose 338 H* 02/18/19 05:44: Troponin I < 0.02 02/18/19 05:44: WBC 7.9, RBC 5.18, Hgb 15.3
--- NOTE | 2019-02-18 09:11 | INFXCTL.NOTE ---
PT REFUSED MEDICATION THIS MORNING. PT STATED SHE WILL TAKE IT WHEN SHE GETS HOME.
--- NOTE | 2019-02-18 09:32 | HMH.PHAINT ---
DISCHARGE COUNSELING--MD INCREASING METOPROLOL TARTRATE DOSE FROM 50 MG BID TO 75 MG BID. DISCUSSED THIS WITH PATIENT.
== END 2019-02-18 09:53 | disposition home or self-care (01) ==
LOC: ER 22:32 → 2ND 23:13
PROVIDERS: Admitting Provider Emergency Medicine; Emergency Provider Emergency Medicine; PCP Emergency Medicine; Visit Provider Emergency Medicine
DX: R07.2 Precordial pain (principal); M79.7 Fibromyalgia; E66.01 Morbid (severe) obesity due to excess calories; F41.9 Anxiety disorder, unspecified; J44.9 Chronic obstructive pulmonary disease, unspecified; K21.9 Gastro-esophageal reflux disease without esophagitis; E78.5 Hyperlipidemia, unspecified; R06.02 Shortness of breath; E03.9 Hypothyroidism, unspecified; E11.69 Type 2 diabetes mellitus with other specified complication; I10 Essential (primary) hypertension; Z68.45 Body mass index [BMI] 70 or greater, adult; Z86.711 Personal history of pulmonary embolism; Z82.49 Family history of ischemic heart disease and other diseases of the circulatory system; Z86.14 Personal history of Methicillin resistant Staphylococcus aureus infection; Z79.890 Hormone replacement therapy; Z87.891 Personal history of nicotine dependence; Z86.718 Personal history of other venous thrombosis and embolism; Z96.653 Presence of artificial knee joint, bilateral; Z83.3 Family history of diabetes mellitus; Z79.02 Long term (current) use of antithrombotics/antiplatelets; Z79.4 Long term (current) use of insulin; Z79.899 Other long term (current) drug therapy; Z88.6 Allergy status to analgesic agent; Z88.1 Allergy status to other antibiotic agents; Z88.8 Allergy status to other drugs, medicaments and biological substances
CPT/HCPCS: 36415; 71045; 80048; 80061; 82962; 83735; 84484; 85025; 93005; 93306; 94660; 96374; 96375; 99285; G0378; J2405

== ENCOUNTER → 2019-08-26 11:37 | Outpatient (POV) | payer MEDICARE, OTHER, SELFPAY ==
[2019-08-26 12:17] VITALS: BP 147/69; PULSE 85; RESP 18; O2SAT 98; BMI 78.5
--- NOTE | 2019-08-26 13:03 | XR_ITS ---
PROCEDURE: XR LUMBAR SPINE MIN 4V CLINICAL INDICATION: BACK PAIN Low back pain COMPARISON: [id number] XR lumbar spine min 4V from 05/07/2018 FINDINGS: Mild multilevel degenerative changes with small endplate osteophytes. There is 5 mm anterolisthesis of L4 on L5. Mild facet arthritic changes are present at the lumbosacral junction. The SI joints have an unremarkable appearance. No fracture or dislocation. No lytic or blastic change IMPRESSION: Mild degenerative changes as described above Dictated by: Manish Fall MD 08/26/2019 15:20 Electronically signed by Manish Fall MD in [place] 08/26/2019 15:20
--- NOTE | 2019-08-26 16:02 | HMH.PMCON ---
Assessment and Plan (1) Degenerative joint disease (DJD) of lumbar spine Current visit: Yes Status: Chronic Qualifiers: Spinal osteoarthritis complication: with radiculopathy Qualified Code(s): M47.26 - Other spondylosis with radiculopathy, lumbar region Category: Medical Code(s): M47.816 - Spondylosis without myelopathy or radiculopathy, lumbar region (2) Lumbar radiculopathy Current visit: Yes Status: Chronic Category: Medical Code(s): M54.16 - Radiculopathy, lumbar region (3) Morbid obesity Current visit: No Status: Chronic Category: Medical Code(s): E66.01 - Morbid (severe) obesity due to excess calories - Assessment and plan all Dx Assessment and Plan for all problems:: We will get an x-ray of the patient to help determine pathology. We will also get her set up for psychological evaluation. We had a long discussion about coming off oral opioids along with losing weight, physical therapy. I will follow-up with the patient after these things and reassess her symptoms at that time. Dr. Goddard has reviewed this note and agrees with this plan of care. This note was dictated using voice recognition software and may contain errors or omissions HPI - Data of Consult Consult date: 08/26/19 Requesting Physician: Vee Lilly APRN Primary Care Provider: Faustino Amador MD - Consult Narrative Reason for consult: Back pain, leg pain History of present illness: Ms. Delacruz is a 49 year old female who is a morbidly obese and complains of low back and leg pain. Patient has not been able to have an MRI due to her size. Patient I had a long discussion in regards to intrathecal therapy. She is interested in pursuing this. I discussed with her that she will have to lose weight prior to this. She is tried and failed epidural injections in the past. She is currently a patient of Dr. Montoya receiving Percocet. Patient has an x-ray showing degenerative changes in her low back. Patient rates her pain a 5 out of 10 this is on chronic oral narcotic medication. Patient would like to become more active. CC: Vee Lilly APRN [facility] History I have reviewed the patient's past medical history: Yes Medical History: Reports:: Anxiety, Congestive Heart Failure, Chronic Obstructive Pulmonary Disease (COPD), Diabetes Mellitus Type 2, Gastroesophageal Reflux Disease(GERD), Hyperlipidemia, Hypertension, MRSA Denies:: Cancer *Have you ever received a pneumonia vaccine?: Yes *Have you received a flu vaccine this season?: Yes Other Medical History: Reports: Anemia, Arthritis, Hypothyroidism, Thyroid Disease Laterality Cases: Left: Arthroscopy Knee Other Surgeries: Yes: Cardiac Catheterization Amputation: No Fractures: No - *Social History Smoking Status: Never smoker # Packs/Day (cigarettes): 2 Alcohol Intake: never Substance Use Type: denies use *Occupational Status:: other Housing: house *Travel in the last 8 weeks: None - Psychiatric History Pschychiatric History:: Reports:: Anxiety Family Hx:: Hypertension, Hyperlipidemia, Cancer, Diabetes Review of Systems - Review of Systems ROS General: no recent weight change, no fever, no sleep disturbances Respiratory: no cough, no shortness of air, no recurring pulmonary infections Cardiovascular/Peripheral Vascular: No chest pain, No palpitations, no edema, no shortness of breath. Gastrointestinal: no new onset incontinence, normal bowel movements reported Genitourinary: no new onset incontinence Musculoskeletal: Back pain, leg pain Psychiatric: normal mood/ affect Neurological: [denies new onset weakness in extremities], [denies new onset balance issues] Meds Home Medications Medication Instructions Recorded Confirmed Type apixaban 5 mg tablet 5 mg PO BID 04/16/18 06/03/19 History duloxetine 60 mg capsule,delayed 60 mg PO DAILY cap 04/16/18 06/03/19 History release fenofibrate micronized 54 mg tablet 54 mg PO DAILY tab
--- NOTE | 2019-08-26 16:06 | P.CONS_ITS ---
Assessment and Plan (1) Degenerative joint disease (DJD) of lumbar spine Current visit: Yes Status: Chronic Qualifiers: Spinal osteoarthritis complication: with radiculopathy Qualified Code(s): M47.26 - Other spondylosis with radiculopathy, lumbar region Category: Medical Code(s): M47.816 - Spondylosis without myelopathy or radiculopathy, lumbar region (2) Lumbar radiculopathy Current visit: Yes Status: Chronic Category: Medical Code(s): M54.16 - Radiculopathy, lumbar region (3) Morbid obesity Current visit: No Status: Chronic Category: Medical Code(s): E66.01 - Morbid (severe) obesity due to excess calories - Assessment and plan all Dx Assessment and Plan for all problems:: We will get an x-ray of the patient to help determine pathology. We will also get her set up for psychological evaluation. We had a long discussion about coming off oral opioids along with losing weight, physical therapy. I will follow-up with the patient after these things and reassess her symptoms at that time. Dr. Goddard has reviewed this note and agrees with this plan of care. This note was dictated using voice recognition software and may contain errors or omissions HPI - Data of Consult Consult date: 08/26/19 Requesting Physician: Vee Lilly APRN Primary Care Provider: Faustino Amador MD - Consult Narrative Reason for consult: Back pain, leg pain History of present illness: Ms. Delacruz is a 49 year old female who is a morbidly obese and complains of low back and leg pain. Patient has not been able to have an MRI due to her size. Patient I had a long discussion in regards to intrathecal therapy. She is interested in pursuing this. I discussed with her that she will have to lose weight prior to this. She is tried and failed epidural injections in the past. She is currently a patient of Dr. Montoya receiving Percocet. Patient has an x-ray showing degenerative changes in her low back. Patient rates her pain a 5 out of 10 this is on chronic oral narcotic medication. Patient would like to become more active. CC: Vee Lilly APRN [facility] History I have reviewed the patient's past medical history: Yes Medical History: Reports:: Anxiety, Congestive Heart Failure, Chronic Obstructive Pulmonary Disease (COPD), Diabetes Mellitus Type 2, Gastroesophageal Reflux Disease(GERD), Hyperlipidemia, Hypertension, MRSA Denies:: Cancer *Have you ever received a pneumonia vaccine?: Yes *Have you received a flu vaccine this season?: Yes Other Medical History: Reports: Anemia, Arthritis, Hypothyroidism, Thyroid Disease Laterality Cases: Left: Arthroscopy Knee Other Surgeries: Yes: Cardiac Catheterization Amputation: No Fractures: No - *Social History Smoking Status: Never smoker # Packs/Day (cigarettes): 2 Alcohol Intake: never Substance Use Type: denies use *Occupational Status:: other Housing: house *Travel in the last 8 weeks: None - Psychiatric History Pschychiatric History:: Reports:: Anxiety Family Hx:: Hypertension, Hyperlipidemia, Cancer, Diabetes Review of Systems - Review of Systems ROS General: no recent weight change, no fever, no sleep disturbances Respiratory: no cough, no shortness of air, no recurring pulmonary infections Cardiovascular/Peripheral Vascular: No chest pain, No palpitations, no edema, no shortness of breath. Gastrointestinal: no new onset incontinence, normal bowel movements reported Genitourinary: no new onset incontinence Musculoskeletal: Back pain, leg pain Psychiatric: norm
== END ==
LOC: SC.PAIN 11:39 → RAD 13:01
PROVIDERS: PCP Emergency Medicine; Visit Provider Clinical Nurse Specialist Family Health
DX: M54.5 Low back pain (principal)
CPT/HCPCS: 72110; 99202

== ENCOUNTER 2019-08-30 19:50 | Observation (INO) ==
[2019-08-30 20:11] LABS: Basophils # 0.1 K/mm3 (0-0.2); Basophils % 0.8 % (0.1-2.0); Eosinophils # 0.2 K/mm3 (0.0-0.4); Eosinophils % 2.4 % (0.1-12.0); Hematocrit 50.9 % (37.0-47.0); Hemoglobin 16.5 g/dL (12.2-16.2); Lymphocytes # 2.2 K/mm3 (0.7-4.5); Lymphocytes % 29.7 % (10-50); Mean Corpuscular HGB Conc 32.5 g/dL (31.8-35.4); Mean Corpuscular Volume 91.8 fl (81-99); Mean Platelet Volume 8.9 fl (7.4-10.4); Monocytes # 0.4 K/mm3 (0.1-1.0); Monocytes % 5.8 % (1.7-9.3); Neutrophils # 4.6 K/mm3 (1.8-7.8); Neutrophils % 61.3 % (37.0-80.0); Platelet Count 221 K/mm3 (142-424); Red Blood Count 5.54 M/mm3 (4.20-5.40); Red Cell Distribution Width 13.8 % (11.5-17.5); White Blood Count 7.6 K/mm3 (4.8-10.8)
[2019-08-30 20:21] LABS: Albumin Level 3.3 gm/dL (3.4-5.0); Bilirubin,Direct 0.1 mg/dL (0.0-0.2); Bilirubin,Indirect 0.2 mg/dL (0.0-0.9); Bilirubin,Total 0.3 mg/dL (0.2-1.0)
[2019-08-30 20:23] LABS: C-Reactive Protein 1.1 mg/dL (0.0-0.9)
--- NOTE | 2019-08-30 20:38 | Emergency Department Note ---
ED Disposition Clinical Impression: Morbid obesity Chest pain Qualifiers: Chest pain type: unspecified Qualified Code(s): R07.9 - Chest pain, unspecified Diabetes Qualifiers: Diabetes mellitus director long term care insulin use: with director long term care use Diabetes mellitus complication status: without complication Hypothyroidism Qualifiers: Hypothyroidism type: acquired Qualified Code(s): E03.9 - Hypothyroidism, unspecified Hypertension Qualifiers: Hypertension type: essential hypertension Qualified Code(s): I10 - Essential (primary) hypertension Disposition: Admitted as Observation Condition on Discharge: Good Referrals: Faustino Amador MD [Primary Care Provider] - - Critical Care Critical Care Time: No Attestation: On 08/30/19, the high probability of a clinically significant, sudden or life threatening deterioration of the following system(s) required my full and direct attention, intervention and personal management. The time I documented below is in addition to time spent performing reported procedures but includes the following listed in this critical care notation. Medical Decision Making - Medical Records Medical records reviewed: Yes: I reviewed the patient's medical records. - Sukhjinder Inquiry Pt receiving controlled substance: No Vital Signs: 08/30/19 19:51 Temperature 97.6 F Temperature Source Oral Pulse Rate [Left Radial] 84 Respiratory Rate 17 Blood Pressure [Right Arm] 174/88 H Blood Pressure Mean [Right Arm] 116 Blood Pressure Source [Right Arm] Automatic Cuff Blood Pressure Position [Right Arm] Supine 02 Sat by Pulse Oximetry 99 Oxygen Delivery Method Room Air - Lab Data Lab results reviewed: Yes: I reviewed the patient's lab results. Lab Results 08/30/19 19:53: ESR 9 08/30/19 19:53: Troponin I < 0.02, C-Reactive Protein 1.1 H 08/30/19 19:53: WBC 7.6, RBC 5.54 H, Hgb 16.5 H, Hct 50.9 H, MCV 91.8, MCH 29.8, MCHC 32.5, RDW 13.8, Plt Count 221, MPV 8.9, Neut % (Auto) 61.3, Lymph % (Auto) 29.7, [place] % (Auto) 5.8, Eos % (Auto) 2.4, Baso % (Auto) 0.8, Neut # (Auto) 4.6, Lymph # (Auto) 2.2, [place] # (Auto) 0.4, Eos # (Auto) 0.2, Baso # (Auto) 0.1 08/30/19 19:53: Sodium 135 L, Potassium 4.0, Chloride 97 L, Carbon Dioxide 28, Anion Gap 14.0, BUN 20 H, Creatinine 1.23 H, Estimated Creat Clear 51, Estimated GFR 46 L, Est GFR ( Amer) 56 L, Glucose 451 H*, Calcium 9.0, Total Bilirubin 0.3, Direct Bilirubin 0.1, Indirect Bilirubin 0.2, AST 16, ALT 26, Alkaline Phosphatase 179 H, Total Protein 8.0, Albumin 3.3 L 08/30/19 20:45: Urine Color Yellow, Urine Appearance Clear, Urine pH 6.0, Ur Specific [place] 1.010, Urine Protein Negative, Urine Glucose (UA) 3+, Urine Ketones Trace, Urine Blood Negative, Urine Nitrate Negative, Urine Bilirubin Negative, Urine Urobilinogen 0.2, Ur Leukocyte Esterase Negative, Urine WBC Occasional, Amorphous Sediment Trace 08/30/19 20:45: Urine HCG, Qual Negative 08/30/19 22:15: Troponin I < 0.02 Result diagrams: 08/30/19 19:53 08/30/19 19:53 Orders (Tests/Meds): ED MEDICATIONS Generic Name Dose Route Start Last Admin Trade Name Freq PRN Reason Stop Dose Admin Nitroglycerin/Dextrose 250 mls @ 1.5 mls/hr 08/30/19 23:45 Nitroglycerin 50mg/250ml D5w IV 09/29/19 23:44 .Q24H TANNER Protocol 5 MCG/MIN Discontinued Medications Generic Name Dose Route Start Last Admin Trade Name Freq PRN Reason Stop Dose Admin Acetaminophen 650 mg 08/30/19 20:55 08/30/19 20:57 Tylenol 500mg Tablet PO 08/30/19 20:56 650 mg ONCE ONE Administration Aspirin 243 mg 08/30/19 20:04 08/30/19 20:10 Aspirin 81mg Chewable Tablet PO 08/30/19 20:05 243 mg ONCE ONE Administration Morphine Sulfate 2 mg 08/30/19 23:48 Morphine 2mg/Ml Syringe IV 08/30/19 23:49 ONCE ONE Nitroglycerin 0.4 mg 08/30/19 20:04 08/30/19 20:10 Nitrostat 0.4mg Sl Tablet SL 08/30/19 20:05 0.4 mg ONCE ONE Administration Nitroglycerin 1 gm 08/30/19 20:20 08/30/19 20:24 Nitroglycerin 1 Inch Oint Udp TD 08/30/19 20:21 1 gm ONCE ONE Administration ORDERS Category Date Time Status Troponin I Q3H Lab 08/31/19 02:15 Ordered - Radiology Data #1 Image(s): Chest Image Reviewed: Yes I reviewed the patient's radiology image Preliminary Findings: Normal/NAD - ECG Data Tracing #1 Normal Sinus Rhythm: Yes Ischemic changes: non-specific ST-T wave changes Chest Pain HPI - General Chief Complaint: Chest Pain Stated Complaint: chest pain Time Seen by Provider: 08/30/19 20:00 Mode of Arrival: Ambulatory Source of Information: Patient, Relative, Medical Record Limitations: Physical Limitations Description of Symptoms (Recalled from ER Triage Doc. by RN): pt stated she has been having chest tightness since yesterday that has increasingly gotten worse. pt also stated she has had increased difficulty breathing with activity. - History of Present Illness HPI narrative: pt with lt sided ant chest pain which started this pm - she had similar episode in 02/16 - pt has iddm and obesity - pt with some relief with ntg MD complaint: chest pain indicative of cardiac Onset (ago): hour(s) Duration: intermittent Activity at onset: during rest Pain location: left chest Severity: moderate Quality: sharp Pain radiation: none Risk Factors for CAD: Hypertension, Family Hx of CAD, Diabetes Treatments prior to or on arrival for Cardiac Chest Pain: none - RAN Score for Non-Stemi Age of Patient: 50-59 years old Heart Rate: 70-89 bpm Systolic Blood Pressure: 160-199 mmHg Serum Creatinine: 1.20-1.59 mg/dl CHF [place] Class: I-No CHF Other Risk Factors: None Non-Stemi Risk Score: 70 - Related Data On Oral Contraceptives: No Home Medications Medication Instructions Recorded Confirmed apixaban 5 mg tablet 5 mg PO BID 04/16/18 08/30/19 fenofibrate micronized 54 mg tablet 54 mg PO DAILY tab 04/16/18 08/30/19 furosemide 80 mg tablet 80 mg PO BID tab 04/16/18 08/30/19 levothyroxine 300 mcg tablet 300 mcg PO DAILY tab 04/16/18 08/30/19 losartan 100 mg tablet 100 mg PO DAILY tab 04/16/18 08/30/19 nitroglycerin 0.4 mg sublingual 0.4 mg SUBLINGUAL Q5-15M 04/16/18 08/30/19 tablet pantoprazole 40 mg tablet,delayed 40 mg PO DAILY tab 04/16/18 06/03/19 release simvastatin 40 mg tablet 40 mg PO QPM 04/16/18 06/03/19 Pregabalin [Lyrica] 150 mg PO BID 05/18/19 06/03/19 Amitriptyline HCl [Elavil 50mg 50 dose PO HS 08/30/19 08/30/19 tablet] Duloxetine HCl [Cymbalta] 60 mg PO DAILY 08/30/19 08/30/19 Escitalopram Oxalate [Lexapro] 20 mg PO HS 08/30/19 08/30/19 Insulin Degludec [Tresiba 150 dose SQ BID 08/30/19 08/30/19 Flextouch U-100] Insulin Regular, Human [Novolin R] 1 dose SQ AC 08/30/19 08/30/19 Metoprolol Succinate 50 mg PO BID 08/30/19 08/30/19 Oxycodone HCl/Acetaminophen 1 each PO TID PRN 08/30/19 08/30/19 [Percocet 7.5-325 mg Tablet] Previous Rx's Medication Instructions Recorded tizanidine 4 mg tablet 4 mg PO BID PRN #60 tab 07/01/19 albuterol sulfate HFA 90 2 puff INHALATION QID #6.7 g 07/17/19 mcg/actuation aerosol inhaler insulin degludec (U-100) 100 150 unit SQ BID #15 ml 07/21/19 unit/mL (3 mL) subcutaneous pen ropinirole 3 mg tablet 2 mg PO QHS #90 tab 07/21/19 Allergies Allergy/AdvReac Type Severity Reaction Status Date / Time ceftriaxone [From ROCEPHIN] Allergy Unknown Verified 06/03/19 14:46 droperidol [From INAPSINE] Allergy Unknown Verified 06/03/19 14:46 ibuprofen [IBUPROFEN] Allergy Unknown Verified 06/03/19 14:46 moxifloxacin [From AVELOX] Allergy Unknown Verified 06/03/19 14:46 [place] History - Hepatitis A Screen Drug use history?: No High risk sexual behaviors?: No History of sexually transmitted infection?: No Currently employed?: No Childcare worker?: No Do you have indoor plumbing?: Yes Do you have electricity?: Yes Attestation statement:: This patient has been screened for Hepatitis A risk factors. I have reviewed the patient's past medical history: Yes Medical History: Reports:: Anxiety, Congestive Heart Failure, Chronic Obstructive Pulmonary Disease (COPD), Diabetes Mellitus Type 2, Gastroesophageal Reflux Disease(GERD), Hyperlipidemia, Hypertension, MRSA Denies:: Cancer Other Medical History: Reports: Anemia, Arthritis, Hypothyroidism, Thyroid Disease Comment: Sleep Apnea Laterality Cases: Left: Arthroscopy Knee, Bilateral: Total Knee Replacement Other Surgeries: Yes: Cardiac Catheterization Amputation: No Fractures: No - Social History Smoking Status: Never smoker # Packs/Day (cigarettes): 2 Alcohol Intake: never Substance Use Type: denies use Occupational Status: disabled Housing: house - Psychiatric History Pschychiatric History:: Reports:: Anxiety Family Hx:: Hypertension, Hyperlipidemia, Cancer, Diabetes ROS Obtained: Yes All systems reviewed & no additional complaints - Constitutional Constitutional: Denies fever(s) - Eyes Eyes: Denies change in vision - ENT Ears, Nose, Mouth, and Throat: Denies sore throat - Cardiovascular Cardiovascular: Reports as per HPI, Reports chest pain, Reports dyspnea on exertion - Respiratory Respiratory: No cough - Gastrointestinal Gastrointestingal: Denies: vomiting - Genitourinary Female Genitourinary: Denies pelvic pain - Musculoskeletal Musculoskeletal: Denies joint pain - Integumentary/Breasts Skin/Breast: Denies rash - Neurologic Neurologic: Denies seizure-like activity Physical Exam - General General appearance: alert, obese - Head Head exam: normocephalic - Eye Eye exam: Present: PERRL, EOMI. Absent: scleral icterus - ENT ENT exam: Present: mucous membranes dry - Neck Neck exam: Present: trachea midline - Respiratory Respiratory exam: Present: normal lung sounds bilaterally. Absent: respiratory distress - Cardiovascular Cardiovascular exam: Present: regular rate, systolic murmur - Abdominal Exam Abdominal exam: Present: soft - Extremities Exam Extremities exam: Absent: calf tenderness - Neurological Exam Neurological exam: Present: alert, oriented X3, CN II-XII intact - Psychiatric Psychiatric exam: Present: normal affect - Skin Skin exam: Absent: rash
[2019-08-30 20:51] LABS: Microscopic, Urine URINE MICROSCOPIC (MICROSCOPIC)
[2019-08-30 20:52] LABS: Appearance,Urine CLEAR (Clear); Bilirubin,Urine Negative (Negative); Blood, Urine Negative (Negative); Color,Urine YELLOW (Yellow); Glucose,Urine (UA) 3+ (Negative); Ketones,Urine TRACE (Negative); Leukocyte Esterase,Urine Negative (Negative); Protein,Urine Negative (Negative); Urobilinogen,Urine 0.2 EU/dl (0.2)
[2019-08-30 20:54] LABS: Amorphous Sediment,Urine Trace /lpf; WBC,Urine Occasional #/hpf (0-3)
[2019-08-31 06:39] LABS: Basophils # 0.1 K/mm3 (0-0.2); Basophils % 0.8 % (0.1-2.0); Eosinophils # 0.2 K/mm3 (0.0-0.4); Eosinophils % 2.7 % (0.1-12.0); Hematocrit 49.8 % (37.0-47.0); Hemoglobin 15.7 g/dL (12.2-16.2); Lymphocytes # 2.4 K/mm3 (0.7-4.5); Lymphocytes % 33.5 % (10-50); Mean Corpuscular HGB Conc 31.5 g/dL (31.8-35.4); Mean Corpuscular Volume 90.8 fl (81-99); Mean Platelet Volume 8.9 fl (7.4-10.4); Monocytes # 0.4 K/mm3 (0.1-1.0); Monocytes % 5.5 % (1.7-9.3); Neutrophils # 4.1 K/mm3 (1.8-7.8); Neutrophils % 57.6 % (37.0-80.0); Platelet Count 214 K/mm3 (142-424); Red Blood Count 5.49 M/mm3 (4.20-5.40); White Blood Count 7.1 K/mm3 (4.8-10.8)
[2019-08-31 07:04] LABS: Calcium 8.7 mg/dL (8.5-10.1); Chol/HDL Ratio 5.4 (1-3.5)
--- NOTE | 2019-08-31 08:59 | History & Physical Report ---
*Admission Date: 08/30/19 *Chief complaint: chest pain *History of present illness: this wf who has lt sided chest pain which started at rest a few hrs [employer] in [place] - pt has iddm, obesity and htn- pt has seen card in 02/16-that admit and consult was reviewed - pt with chest pain aided with ntg and was admitted at this time for eval and treatment [facility] History I have reviewed the patient's past medical history: Yes Medical History: Reports:: Anxiety, Congestive Heart Failure, Chronic Obstructive Pulmonary Disease (COPD), Diabetes Mellitus Type 2, Gastroesophageal Reflux Disease(GERD), Hyperlipidemia, Hypertension, MRSA Denies:: Cancer *Have you ever received a pneumonia vaccine?: Yes *Have you received a flu vaccine this season?: No Other Medical History: Reports: Anemia, Arthritis, Hypothyroidism, Thyroid Disease Laterality Cases: Bilateral: Arthroscopy Knee, Total Knee Replacement Other Surgeries: Yes: Cardiac Catheterization Amputation: No Fractures: No - *Social History Educational Level: Completed High School Smoking Status: Former smoker Tobacco Type: cigarettes # Packs/Day (cigarettes): 35 Alcohol Intake: never Substance Use Type: denies use *Occupational Status:: disabled Housing: house *Travel in the last 8 weeks: None - Psychiatric History Pschychiatric History:: Reports:: Anxiety Family Hx:: Hypertension, Hyperlipidemia, Cancer, Diabetes Review of Systems - Review of Systems Review of systems:: pertinent systems reviewed and negative unless documented below - Constitutional Denies headache(s) - Eyes Denies change in vision - ENT Denies sore throat - *Cardiovascular Reports chest pain, Reports chest pain at rest, Reports radiating jaw, neck or arm pain - *Respiratory Denies cough - *Gastrointestinal Denies abdominal pain - *Genitourinary Denies pelvic pain - *Musculoskeletal Denies joint pain, Denies limited joint movement - Integumentary/Breasts Denies rash - *Neurologic Denies seizure-like activity - Psychiatric Denies depression Meds Home Medications Medication Instructions Recorded Confirmed Type apixaban 5 mg tablet 5 mg PO BID 04/16/18 08/30/19 History fenofibrate micronized 54 mg tablet 54 mg PO DAILY tab 04/16/18 08/30/19 History furosemide 80 mg tablet 80 mg PO BID tab 04/16/18 08/30/19 History levothyroxine 300 mcg tablet 300 mcg PO DAILY tab 04/16/18 08/30/19 History losartan 100 mg tablet 100 mg PO DAILY tab 04/16/18 08/30/19 History nitroglycerin 0.4 mg sublingual 0.4 mg SUBLINGUAL Q5-15M 04/16/18 08/30/19 History tablet pantoprazole 40 mg tablet,delayed 40 mg PO DAILY tab 04/16/18 08/31/19 History release simvastatin 40 mg tablet 40 mg PO QPM 04/16/18 08/31/19 History Pregabalin [Lyrica] 150 mg PO BID 05/18/19 08/31/19 History albuterol sulfate HFA 90 2 puff INHALATION QID #6.7 g 07/17/19 08/30/19 Rx mcg/actuation aerosol inhaler insulin degludec (U-100) 100 150 unit SQ BID #15 ml 07/21/19 08/31/19 Rx unit/mL (3 mL) subcutaneous pen Amitriptyline HCl [Elavil 50mg 100 mg PO HS 08/30/19 08/31/19 History tablet] Duloxetine HCl [Cymbalta] 60 mg PO DAILY 08/30/19 08/30/19 History Escitalopram Oxalate [Lexapro] 20 mg PO HS 08/30/19 08/30/19 History Insulin Degludec [Tresiba 150 dose SQ BID 08/30/19 08/30/19 History Flextouch U-100] Insulin Regular, Human [Novolin R] 1 dose SQ AC 08/30/19 08/30/19 History Metoprolol Succinate 50 mg PO BID 08/30/19 08/30/19 History Oxycodone HCl/Acetaminophen 1 each PO TID PRN 08/30/19 08/30/19 History [Percocet 7.5-325 mg Tablet] Ropinirole HCl 3 mg PO HS 08/31/19 08/31/19 History Allergies Allergy/AdvReac Type Severity Reaction Status Date / Time ceftriaxone [From ROCEPHIN] Allergy Unknown Verified 06/03/19 14:46 droperidol [From INAPSINE] Allergy Unknown Verified 06/03/19 14:46 ibuprofen [IBUPROFEN] Allergy Unknown Verified 06/03/19 14:46 moxifloxacin [From AVELOX] Allergy Unknown Verified 06/03/19 14:46 Exam Vital signs and Labs for Last 24 Hours: Temp Pulse Resp BP Pulse Ox 97.5 F L 94 H 20 160/86 H 93 L 08/31/19 04:00 08/31/19 07:00 08/31/19 07:00 08/31/19 07:00 08/31/19 07:00 Laboratory Results - last 24 hr 08/30/19 19:53: ESR 9 08/30/19 19:53: Troponin I < 0.02, C-Reactive Protein 1.1 H 08/30/19 19:53: WBC 7.6, RBC 5.54 H, Hgb 16.5 H, Hct 50.9 H, MCV 91.8, MCH 29.8, MCHC 32.5, RDW 13.8, Plt Count 221, MPV 8.9, Neut % (Auto) 61.3, Lymph % (Auto) 29.7, [place] % (Auto) 5.8, Eos % (Auto) 2.4, Baso % (Auto) 0.8, Neut # (Auto) 4.6, Lymph # (Auto) 2.2, [place] # (Auto) 0.4, Eos # (Auto) 0.2, Baso # (Auto) 0.1 08/30/19 19:53: Sodium 135 L, Potassium 4.0, Chloride 97 L, Carbon Dioxide 28, Anion Gap 14.0, BUN 20 H, Creatinine 1.23 H, Estimated Creat Clear 51, Estimated GFR 46 L, Est GFR ( Amer) 56 L, Glucose 451 H*, Calcium 9.0, Total Bilirubin 0.3, Direct Bilirubin 0.1, Indirect Bilirubin 0.2, AST 16, ALT 26, Alkaline Phosphatase 179 H, Total Protein 8.0, Albumin 3.3 L 08/30/19 20:45: Urine Color Yellow, Urine Appearance Clear, Urine pH 6.0, Ur Specific [place] 1.010, Urine Protein Negative, Urine Glucose (UA) 3+, Urine Ketones Trace, Urine Blood Negative, Urine Nitrate Negative, Urine Bilirubin Negative, Urine Urobilinogen 0.2, Ur Leukocyte Esterase Negative, Urine WBC Occasional, Amorphous Sediment Trace 08/30/19 20:45: Urine HCG, Qual Negative 08/30/19 22:15: Troponin I < 0.02 08/31/19 02:20: Troponin I < 0.02 08/31/19 05:34: POC Glucose 334 H* 08/31/19 06:20: WBC 7.1, RBC 5.49 H, Hgb 15.7, Hct 49.8 H, MCV 90.8, MCH 28.6, MCHC 31.5 L, RDW 14.0, Plt Count 214, MPV 8.9, Neut % (Auto) 57.6, Lymph % (Auto) 33.5, [place] % (Auto) 5.5, Eos % (Auto) 2.7, Baso % (Auto) 0.8, Neut # (Auto) 4.1, Lymph # (Auto) 2.4, [place] # (Auto) 0.4, Eos # (Auto) 0.2, Baso # (Auto) 0.1 08/31/19 06:20: Sodium 135 L, Potassium 4.0, Chloride 98, Carbon Dioxide 26, Anion Gap 15.0, BUN 14 D, Creatinine 0.80 D, Estimated Creat Clear 79, Estimated GFR 76, Est GFR ( Amer) 92 D, Glucose 330 H D, Calcium 8.7, Magnesium 1.8, Triglycerides 199, Cholesterol 223 H, LDL Cholesterol 142 H, VLDL Cholesterol 40, HDL Cholesterol 41, Cholesterol/HDL Ratio 5.4 H I & O for Last 24 hours: Intake & Output 08/28/19 08/29/19 08/30/19 08/31/19 11:59 11:59 11:59 11:59 Intake Total 485 / 485 Balance 485 / 485 Weight 486 lb - Constitutional no acute distress, morbidly obese - *Routine HEENT Exam Head: Present: normocephalic Eye: Present: EOMI, PERRL ENT: Present: mucous membranes dry - *Routine Neck Exam Absent: JVD - *Routine Respiratory Exam Present: decreased breath sounds - *Routine Cardiovascular Exam Present: RRR, murmur, S4 - *Routine Abdominal Exam Present: soft - *Routine Extremities Exam Present: edema. 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: with termite inspector use Diabetes mellitus complication status: without complication Category: Medical Code(s): E11.9 - Type 2 diabetes mellitus without complications (3) Hypertension Current visit: Yes Status: Chronic Qualifiers: Hypertension type: essential hypertension Qualified Code(s): I10 - Essential (primary) hypertension Category: Medical Code(s): I10 - Essential (primary) hypertension (4) Hypothyroidism Current visit: Yes Status: Chronic Qualifiers: Hypothyroidism type: acquired Qualified Code(s): E03.9 - Hypothyroidism, unspecified Category: Medical Code(s): E03.9 - Hypothyroidism, unspecified (5) Morbid obesity Current visit: Yes Status: Chronic Category: Medical Code(s): E66.01 - Morbid (severe) obesity due to excess calories (6) Hyperlipidemia associated with type 2 diabetes mellitus Current visit: No Status: Acute Category: Medical Code(s): E11.69 - Type 2 diabetes mellitus with other specified complication; E78.5 - Hyperlipidemia, unspecified
--- NOTE | 2019-08-31 10:42 | Pharmacy Consult Notes ---
[facility] Pharmacy VTE Monitoring - Patient Demographics Admission date: 08/31/19 Report Date: 08/31/19 Time: 10:41 Allergies/Adverse Reactions: Patient Allergies ceftriaxone [From ROCEPHIN] Allergy (Unknown, Verified 06/03/19 14:46) droperidol [From INAPSINE] Allergy (Unknown, Verified 06/03/19 14:46) ibuprofen [IBUPROFEN] Allergy (Unknown, Verified 06/03/19 14:46) moxifloxacin [From AVELOX] Allergy (Unknown, Verified 06/03/19 14:46) Height: 1.68 m Weight: 220.446 kg Patient Problems: Current Active Problems Chest pain (Acute) Morbid obesity (Chronic) Hypothyroidism (Chronic) Hypertension (Chronic) Diabetes (Chronic) - VTE Risk Labs: VTE Related Lab Results Hgb 15.7 g/dL (12.2-16.2) 08/31/19 06:20 Hct 49.8 % (37.0-47.0) H 08/31/19 06:20 Plt Count 214 K/mm3 (142-424) 08/31/19 06:20 BUN 14 mg/dL (7-18) D 08/31/19 06:20 Creatinine 0.80 mg/dL (0.55-1.02) D 08/31/19 06:20 Estimated Creat Clear 79 mL/min (50-200) 08/31/19 06:20 VTE Score: 6 VTE Risk Level: Moderate Risk - Prophylaxis VTE Prophylaxis Ordered?: Yes Types of VTE Prophylaxis: Pharmacological (ELIQUIS) Pharmacologic Type: Other (ELIQUIS)
--- NOTE | 2019-08-31 20:13 | Electrocardiograph Report ---
APPROVED REPORT Exam: Resting ECG HR:86 bpm ECG Measurements Heart Rate 86 AXES WV 154 P 87 QRSd 88 QRS 35 QT 364 T60 QTc 435 <Conclusion> Normal sinus rhythm left atrial abnormality Borderline ECG Electronically signed by : Viraj Becerra, 08/31/2019 20:13:18
--- NOTE | 2019-09-01 11:06 | Consult Report ---
<Kendy Murphy - Last Filed: 09/01/19 11:03> History of Present Illness Consult date: 09/01/19 Requesting physician: Faustino Amador Consult reason: chest pain Chief complaint: chest pain History of present illness: This is a 49-year-old white female who was admitted to the hospital for chest pain. She states that she has a squeezing sensation in the left side of her chest. This does not radiate. It is associated with shortness of breath and nausea. She rates this a 7 out of 10 in intensity. It is worse with exertion and gets better with rest but this does not resolve her chest pain. She states that she has been hospitalized for similar symptoms in the past. The patient states that this occurs intermittently but this time it was a little more severe than it has been in the past. The patient has had 2- troponins. She states that she is still having the chest pain off and on while here in the hospital. She has known congestive heart failure. She denies any coronary artery disease or HI. She denies any fever, chills, vomiting, diarrhea, PND or orthopnea. She does have edema in her bilateral lower extremities. [facility] History I have reviewed the patient's past medical history: Yes Medical History: Reports:: Anxiety, Congestive Heart Failure, Chronic Obstructive Pulmonary Disease (COPD), Diabetes Mellitus Type 2, Gastroesophageal Reflux Disease(GERD), Hyperlipidemia, Hypertension, MRSA Denies:: Cancer *Have you ever received a pneumonia vaccine?: Yes *Have you received a flu vaccine this season?: No Other Medical History: Reports: Anemia, Arthritis, Hypothyroidism, Thyroid Disease Laterality Cases: Bilateral: Arthroscopy Knee, Total Knee Replacement Other Surgeries: Yes: Cardiac Catheterization Amputation: No Fractures: No - *Social History Educational Level: Completed High School Smoking Status: Former smoker Tobacco Type: cigarettes # Packs/Day (cigarettes): 35 Alcohol Intake: never Substance Use Type: denies use *Occupational Status:: disabled Housing: house *Travel in the last 8 weeks: None - Psychiatric History Pschychiatric History:: Reports:: Anxiety Family Hx:: Hypertension, Hyperlipidemia, Cancer, Diabetes Meds Home Medications Medication Instructions Recorded Confirmed Type apixaban 5 mg tablet 5 mg PO BID 04/16/18 08/30/19 History furosemide 80 mg tablet 80 mg PO BID tab 04/16/18 08/30/19 History levothyroxine 300 mcg tablet 300 mcg PO DAILY tab 04/16/18 08/30/19 History losartan 100 mg tablet 100 mg PO DAILY tab 04/16/18 08/30/19 History nitroglycerin 0.4 mg sublingual 0.4 mg SUBLINGUAL Q5-15M 04/16/18 08/30/19 History tablet pantoprazole 40 mg tablet,delayed 40 mg PO DAILY tab 04/16/18 08/31/19 History release simvastatin 40 mg tablet 40 mg PO HS 04/16/18 08/31/19 History Pregabalin [Lyrica] 150 mg PO BID 05/18/19 08/31/19 History albuterol sulfate HFA 90 2 puff INHALATION QID #6.7 g 07/17/19 08/30/19 Rx mcg/actuation aerosol inhaler Amitriptyline HCl [Elavil 50mg 100 mg PO HS 08/30/19 08/31/19 History tablet] Duloxetine HCl [Cymbalta] 60 mg PO DAILY 08/30/19 08/30/19 History Escitalopram Oxalate [Lexapro] 20 mg PO HS 08/30/19 08/30/19 History Insulin Degludec [Tresiba 150 dose SQ BID 08/30/19 08/30/19 History Flextouch U-100] Insulin Regular, Human [Novolin R] 1 dose SQ AC 08/30/19 08/30/19 History Metoprolol Succinate 50 mg PO BID 08/30/19 08/30/19 History Oxycodone HCl/Acetaminophen 1 each PO TID PRN 08/30/19 08/30/19 History [Percocet 7.5-325 mg Tablet] Fenofibrate 54 mg PO DAILY 08/31/19 08/31/19 History Ropinirole HCl 2 mg PO HS 08/31/19 08/31/19 History Ropinirole HCl 3 mg PO HS 08/31/19 08/31/19 History Tizanidine HCl [Zanaflex 4mg 4 mg PO BID 08/31/19 08/31/19 History tablet] Allergies Allergy/AdvReac Type Severity Reaction Status Date / Time ceftriaxone [From ROCEPHIN] Allergy Unknown Verified 06/03/19 14:46 droperidol [From INAPSINE] Allergy Unknown Verified 06/03/19 14:46 ibuprofen [IBUPROFEN] Allergy Unknown Verified 06/03/19 14:46 moxifloxacin [From AVELOX] Allergy Unknown Verified 06/03/19 14:46 Review of Systems - Review of Systems Review of systems:: pertinent systems reviewed and negative unless documented below - *Cardiovascular Reports chest pain, Reports chest pain at rest, Reports chest pain with activity, Reports shortness of breath, Reports shortness of breath with activity, Reports generalized swelling - *Respiratory Reports shortness of breath, Reports shortness of breath with activity - *Gastrointestinal Reports nausea - *Neurologic Denies headache(s), Denies seizure-like activity Exam Vital signs and Labs for Last 24 Hours: Temp Pulse Resp BP Pulse Ox 97.7 F 77 20 131/70 95 09/01/19 08:00 09/01/19 08:00 09/01/19 08:00 09/01/19 08:00 09/01/19 08:00 Laboratory Results - last 24 hr 08/31/19 06:20: Hemoglobin A1c 11.0 H 08/31/19 10:53: POC Glucose 313 H* 08/31/19 16:02: POC Glucose 446 H* 08/31/19 20:17: POC Glucose 226 H 09/01/19 06:00: POC Glucose 313 H* I & O for Last 24 hours: Intake & Output 08/29/19 08/30/19 08/31/19 09/01/19 23:59 23:59 23:59 23:59 Intake Total 965 / 965 3357 / 3357 Balance 965 / 965 3357 / 3357 Weight 486 lb 486 lb 478 lb 5 oz Narrative: Her EKG is sinus rhythm with a rate of 86. - Constitutional no acute distress, morbidly obese - *Routine HEENT Exam Head: Present: normocephalic, atraumatic Eye: Present: EOMI, PERRL ENT: Present: mucous membranes moist - *Routine Neck Exam Present: supple, full ROM, normal carotid upstroke. Absent: JVD, carotid bruit, lymphadenopathy - *Routine Respiratory Exam Present: CTA bilaterally - *Routine Cardiovascular Exam Present: RRR, Normal S1, Normal S2. Absent: murmur - *Routine Abdominal Exam Present: soft, normoactive bowel sounds. Absent: tenderness, distended - *Routine Extremities Exam Present: edema, full ROM, pulses intact, normal capillary refill. Absent: cyanosis, clubbing - *Routine Skin Exam Present: intact, warm. Absent: erythema, rash - *Routine Neurological Exam Present: alert, oriented X3, CN II-XII intact. Absent: sensory deficit, motor deficit - Routine Psychiatric Exam Present: normal affect, normal thought process - Detailed Eye Exam Eyelids: Left normal inspection Assessment and Plan (1) Chest pain Current visit: Yes Status: Acute Qualifiers: Chest pain type: unspecified Qualified Code(s): R07.9 - Chest pain, unspecified Category: Medical Code(s): R07.9 - Chest pain, unspecified (2) Diabetes Current visit: Yes Status: Chronic Qualifiers: Diabetes mellitus long-term insulin use: with long-term use Diabetes mellitus complication status: without complication Category: Medical Code(s): E11.9 - Type 2 diabetes mellitus without complications (3) Hypertension Current visit: Yes Status: Chronic Qualifiers: Hypertension type: essential hypertension Qualified Code(s): I10 - Essential (primary) hypertension Category: Medical Code(s): I10 - Essential (primary) hypertension (4) Hypothyroidism Current visit: Yes Status: Chronic Qualifiers: Hypothyroidism type: acquired Qualified Code(s): E03.9 - Hypothyroidism, unspecified Category: Medical Code(s): E03.9 - Hypothyroidism, unspecified (5) Morbid obesity Current visit: Yes Status: Chronic Category: Medical Code(s): E66.01 - Morbid (severe) obesity due to excess calories (6) Hyperlipidemia associated with type 2 diabetes mellitus Current visit: No Status: Acute Category: Medical Code(s): E11.69 - Type 2 diabetes mellitus with other specified complication; E78.5 - Hyperlipidemia, unspecified - Assessment and plan all Dx Assessment and Plan for all problems:: Plan: 1. The patient was admitted to the hospital with chest pain. The patient is having symptoms consistent with typical angina. She has ruled out for an HI. The patient is 478 pounds which is over the weight requirement for any of our tables to proceed with any further ischemic evaluation. The patient has had multiple admissions for chest pain and she would benefit from an ischemic evaluation. Per Dr. Mayorga, the patient will likely need to be transferred to [facility] for further ischemic testing to make sure this chest pain is not ischemic in nature. However this will be left up to her primary care provider. If transfer is not indicated, then the patient will need to be set up on an outpatient basis for an ischemic evaluation at [facility] where there tables can accommodate patients over 400 pounds. 2. Her blood pressure is well controlled. 3. Her LDL goal is less than 100. Her LDL is 142. The patient is on pravastatin. Recommend stopping the pravastatin and switching to Lipitor 40 mg p.o. daily. 4. The patient is morbidly obese. Weight loss is highly encouraged and advised. She may benefit from having a gastric sleeve in the future as well. 5. The patient is diabetic. She does need aggressive control of her diabetes. This does place her at risk of having coronary artery disease. 6. She does have a history of congestive heart failure. She has no overt signs of congestive heart failure at this time. 7. As mentioned before the patient would benefit from further ischemic evaluation, however, this will have to be completed at [facility] given the patient's weight. Thank you for the opportunity to help participate in the care of this patient. <Faustino Amador - Last Filed: 09/01/19 12:31> Exam Vital signs and Labs for Last 24 Hours: Temp Pulse Resp BP Pulse Ox 98.1 F 65 18 91/63 L 97 09/01/19 12:00 09/01/19 12:00 09/01/19 12:00 09/01/19 12:00 09/01/19 12:00 Laboratory Results - last 24 hr 08/31/19 10:53: POC Glucose 313 H* 08/31/19 16:02: POC Glucose 446 H* 08/31/19 20:17: POC Glucose 226 H 09/01/19 06:00: POC Glucose 313 H* 09/01/19 11:51: POC Glucose 353 H* I & O for Last 24 hours: Intake & Output 08/30/19 08/31/19 09/01/19 09/02/19 11:59 11:59 11:59 11:59 Intake Total 485 / 485 3837 / 3837 Balance 485 / 485 3837 / 3837 Weight 486 lb 484 lb 14.825 oz Assessment and Plan (1) Chest pain Current visit: Yes Status: Acute Qualifiers: Chest pain type: unspecified Qualified Code(s): R07.9 - Chest pain, unspecified Category: Medical Code(s): R07.9 - Chest pain, unspecified (2) Diabetes Current visit: Yes Status: Chronic Qualifiers: Diabetes mellitus intermission coordinator insulin use: with intermission coordinator use Diabetes mellitus complication status: without complication Category: Medical Code(s): E11.9 - Type 2 diabetes mellitus without complications (3) Hypertension Current visit: Yes Status: Chronic Qualifiers: Hypertension type: essential hypertension Qualified Code(s): I10 - Essential (primary) hypertension Category: Medical Code(s): I10 - Essential (primary) hypertension (4) Hypothyroidism Current visit: Yes Status: Chronic Qualifiers: Hypothyroidism type: acquired Qualified Code(s): E03.9 - Hypothyroidism, unspecified Category: Medical Code(s): E03.9 - Hypothyroidism, unspecified (5) Morbid obesity Current visit: Yes Status: Chronic Category: Medical Code(s): E66.01 - Morbid (severe) obesity due to excess calories (6) Hyperlipidemia associated with type 2 diabetes mellitus Current visit: No Status: Acute Category: Medical Code(s): E11.69 - Type 2 diabetes mellitus with other specified complication; E78.5 - Hyperlipidemia, unspecified
--- NOTE | 2019-09-01 12:53 | Discharge Summary ---
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 She states that she has a squeezing sensation in the left side of her chest. This does not radiate. It is associated with shortness of breath and nausea. She rates this a 7 out of 10 in intensity. It is worse with exertion and gets better with rest but this does not resolve her chest pain. She states that she has been hospitalized for similar symptoms in the past. The patient states that this occurs intermittently but this time it was a little more severe than it has been in the past. The patient has had 2- troponins. She states that she is still having the chest pain off and on while here in the hospital. She has known congestive heart failure. She denies any coronary artery disease or OH. She denies any fever, chills, vomiting, diarrhea, PND or orthopnea. She does have edema in her bilateral lower extremities. The patient was admitted to the hospital with chest pain. The patient is having symptoms consistent with typical angina. She has ruled out for an OH. The patient is 478 pounds which is over the weight requirement for any of our tables to proceed with any further ischemic evaluation. The patient has had multiple admissions for chest pain and she would benefit from an ischemic evaluation. Per Dr. Roberts, the patient will likely need to be transferred to [facility] for further ischemic testing to make sure this chest pain is not ischemic in nature. However this will be left up to her primary care provider. If transfer is not indicated, then the patient will need to be set up on an outpatient basis for an ischemic evaluation at [facility] where there tables can accommodate patients over 400 pounds. 2. Her blood pressure is well controlled. 3. Her LDL goal is less than 100. Her LDL is 142. The patient is on pravastatin. Recommend stopping the pravastatin and switching to Lipitor 40 mg p.o. daily. 4. The patient is morbidly obese. Weight loss is highly encouraged and advised. She may benefit from having a gastric sleeve in the future as well. 5. The patient is diabetic. She does need aggressive control of her diabetes. This does place her at risk of having coronary artery disease. 6. She does have a history of congestive heart failure. She has no overt signs of congestive heart failure at this time. 7. As mentioned before the patient would benefit from further ischemic evaluation, however, this will have to be completed at [facility] given the patient's weight. i discussed with [facility] - dr michael - will see as op and sooner if recurrent sx - discussed with dr roberts and will add imdur also - will follow closely Objective Vital signs: Temp Pulse Resp BP Pulse Ox 98.1 F 65 18 91/63 L 97 09/01/19 12:00 09/01/19 12:00 09/01/19 12:00 09/01/19 12:00 09/01/19 12:00 no acute distress, morbidly obese - *Routine HEENT Exam Head: Present: normocephalic Eye: Present: EOMI, PERRL ENT: Present: mucous membranes dry - *Routine Neck Exam Absent: JVD - *Routine Respiratory Exam Present: CTA bilaterally - *Routine Cardiovascular Exam Present: RRR, murmur - *Routine Abdominal Exam Present: soft - *Routine Extremities Exam Present: edema. Absent: calf tenderness - *Routine Skin Exam Present: intact - *Routine Neurological Exam Present: alert, oriented X3, CN II-XII intact - Routine Psychiatric Exam Present: normal affect Results Labs on day of discharge: Labs from last 24 hours 09/01/19 09/01/19 08/31/19 11:51 06:00 20:17 POC Glucose 353 H* 313 H* 226 H 08/31/19 08/31/19 16:02 10:53 POC Glucose 446 H* 313 H* DS: Diagnosis - Discharge Diagnosis (1) Chest pain Status: Acute (2) Diabetes Status: Chronic (3) Hypertension Status: Chronic (4) Hypothyroidism Status: Chronic (5) Morbid obesity Status: Chronic (6) Hyperlipidemia associated with type 2 diabetes mellitus Status: Acute (7) Angina at rest Status: Acute Discharge Plan - Patient Discharge Instructions ACTIVITY: Continue current activity DIET: continue same diet Patient Instructions: DI for Chronic Pain -- Adult - Follow up Plan Disposition: Home, Self-Long-Term Medications: Home Medications Medication Instructions Recorded Confirmed Type apixaban 5 mg tablet 5 mg PO BID 04/16/18 08/30/19 History furosemide 80 mg tablet 80 mg PO BID tab 04/16/18 08/30/19 History levothyroxine 300 mcg tablet 300 mcg PO DAILY tab 04/16/18 08/30/19 History losartan 100 mg tablet 100 mg PO DAILY tab 04/16/18 08/30/19 History nitroglycerin 0.4 mg sublingual 0.4 mg SUBLINGUAL Q5-15M 04/16/18 08/30/19 History tablet pantoprazole 40 mg tablet,delayed 40 mg PO DAILY tab 04/16/18 08/31/19 History release simvastatin 40 mg tablet 40 mg PO HS 04/16/18 08/31/19 History Pregabalin [Lyrica] 150 mg PO BID 05/18/19 08/31/19 History albuterol sulfate HFA 90 2 puff INHALATION QID #6.7 g 07/17/19 08/30/19 Rx mcg/actuation aerosol inhaler Amitriptyline HCl [Elavil 50mg 100 mg PO HS 08/30/19 08/31/19 History tablet] Duloxetine HCl [Cymbalta] 60 mg PO DAILY 08/30/19 08/30/19 History Escitalopram Oxalate [Lexapro] 20 mg PO HS 08/30/19 08/30/19 History Insulin Degludec [Tresiba 150 dose SQ BID 08/30/19 08/30/19 History Flextouch U-100] Insulin Regular, Human [Novolin R] 1 dose SQ AC 08/30/19 08/30/19 History Metoprolol Succinate 50 mg PO BID 08/30/19 08/30/19 History Oxycodone HCl/Acetaminophen 1 each PO TID PRN 08/30/19 08/30/19 History [Percocet 7.5-325 mg Tablet] Fenofibrate 54 mg PO DAILY 08/31/19 08/31/19 History Ropinirole HCl 2 mg PO HS 08/31/19 08/31/19 History Ropinirole HCl 3 mg PO HS 08/31/19 08/31/19 History Tizanidine HCl [Zanaflex 4mg 4 mg PO BID 08/31/19 08/31/19 History tablet] Atorvastatin Calcium [Lipitor 40mg 40 mg PO HS #60 tab 09/01/19 Rx Tablet] Isosorbide Mononitrate [Imdur 30mg 30 mg PO DAILY 30 Days #30 09/01/19 Rx ER tablet] tab.er.24h Prescriptions/Medication Reconciliation: New Ropinirole HCl 2 mg PO HS Fenofibrate [Tricor 54mg tablet] 54 mg PO DAILY tablet Tizanidine HCl [Zanaflex 4mg tablet] 4 mg PO BIDP PRN tablet PRN Reason: muscle spasticity Tizanidine HCl [Zanaflex 4mg tablet] 4 mg PO BID PRN tablet PRN Reason: muscle spasticity Isosorbide Mononitrate [Imdur 30mg ER tablet] 30 mg PO DAILY 30 Days #30 tab.er.24h Atorvastatin Calcium [Lipitor 40mg Tablet] 40 mg PO HS #60 tab Ropinirole HCl [Requip 1mg Tablet] 2 mg PO HS tablet Continued losartan 100 mg tablet 100 mg PO DAILY tab levothyroxine 300 mcg tablet 300 mcg PO DAILY tab nitroglycerin 0.4 mg sublingual tablet 0.4 mg SUBLINGUAL Q5-15M pantoprazole 40 mg tablet,delayed release 40 mg PO DAILY tab furosemide 80 mg tablet 80 mg PO BID tab apixaban 5 mg tablet 5 mg PO BID albuterol sulfate HFA 90 mcg/actuation aerosol inhaler 2 puff INHALATION QID #6.7 g Metoprolol Succinate 50 mg PO BID Insulin Degludec [Tresiba Flextouch U-100] 150 dose SQ BID Escitalopram Oxalate [Lexapro] 20 mg PO HS Duloxetine HCl [Cymbalta] 60 mg PO DAILY Amitriptyline HCl [Elavil 50mg tablet] 100 mg PO HS Ropinirole HCl 2 mg PO HS Pregabalin [Lyrica] 150 mg PO BID Oxycodone HCl/Acetaminophen [Percocet 7.5-325 mg Tablet] 1 each PO TID PRN PRN Reason: pain Insulin Regular, Human [Novolin R] 1 dose SQ AC Ropinirole HCl 3 mg PO HS Fenofibrate 54 mg PO DAILY Tizanidine HCl [Zanaflex 4mg tablet] 4 mg PO BID Discontinued simvastatin 40 mg tablet 40 mg PO HS - Problem Reconciliation Problems Reviewed?: Yes
--- OUTSIDE RECORDS SUMMARY | 2019-09-01 17:04 | External Medical Summary | Continuity of Care Document ---
:1970 Author Organization [facility] Address [address] [place] [address] Phone Care Team Providers Name Role Phone Bhavik Attending Provider Unavailable Tita Amador Primary Care Provider Skylar Lilly Attending Provider Tita Amador Attending Provider Allergies, Adverse Reactions, Alerts Allergen Type Severity Reaction Last Verified Status Updated ceftriaxone Allergy Unknown Yes Active droperidol Allergy Unknown Yes Active ibuprofen Allergy Unknown Yes Active moxifloxacin Allergy Unknown Yes Active Medications Medication Status Dose Units Route Sig Qty Days Start End Instruct ions Date Date Furosemide Active 80 MG Oral Twice a March 1:23pm Losartan Active 100 MG Oral Daily March 1:27pm Levothyroxine Active 300 MCG Oral Daily March 1:28pm Apixaban Active 5 MG Oral Twice a March 1:31pm Nitroglycerin Active 0.4 MG Sublingual every 5 March to 2017 1:32pm Pantoprazole Active 40 MG Oral Daily March 1:32pm Albuterol Active 2 PUFF Inhalation Four 6.7 October Sulfate times a 2018 1:52pm Pregabalin Active 150 MG Oral Twice a May 12:14pm Amitriptyline Active 100 MG Oral At August bedtime , nightly 2018 9:06pm Duloxetine Hcl Active 60 MG Oral Daily August 30, 2019 9:06pm Escitalopram Active 20 MG Oral At August Oxalate bedtime ly 2018 9:06pm Insulin Active 150 DOSE SUBCUTANEO Twice a August Degludec 2018 9:06pm Insulin Active 1 DOSE SUBCUTANEO Before August SL IDING Regular, Human US meals 2018 MEALS 9:06pm Metoprolol Active 50 MG Oral Twice a August Succinate 2018 9:06pm Oxycodone Active 1 EACH Oral Three August Hcl/Acetaminop times a 2018 9:06pm Ropinirole Hcl Active 3 MG Oral At August nightly 1:31am Fenofibrate Active 54 MG Oral Daily August 31, 2019 11:53am Ropinirole Hcl Active 2 MG Oral At August nightly 2:44pm Tizanidine Hcl Active 4 MG Oral Twice a August 2:44pm Atorvastatin Active 40 MG Oral At August Calcium bedtime 2018 nightly 12:59pm Isosorbide Active 30 MG Oral Daily August Mononitrate 2018 1:02pm Problems Active Problems Medical Problem Onset Date Status Migraine Active Lumbar radiculopathy Active Diabetes Active Morbid obesity Active 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 Angina at rest Active Anxiety Active Depression Active Fibromyalgia Active Hypothyroidism Active Neuropathy Active Hyperlipidemia associated with type Acti ve 2 diabetes mellitus Right flank pain Active GERD (gastroesophageal reflux Active disease) Chest pain Active Hypertension Active Obesity Active Procedures Procedure Date Performed Status XR chest 2V August 30, 2019 completed ECG initial [place] August 30, 2019 completed XR lumbar spine min 4V August 26, 2019 completed Relevant Diagnostic Tests and/or Laboratory Data Laboratory Results Test Date/Time Result Interpretation Reference Result Perfo rming Range Comment Site White Blood August 7.1 K/mm3 4.8-10.8 [facility], [address] [place] [address] [facility] [address] Count 2018 [place] [address] 6:20am Red Blood Count August 5.49 M/mm3 4.20-5.40 [facility], [facility] [place] [address] 2018 [place] [address] 6:20am Hemoglobin August 15.7 g/dL 12.2-16.2 [facility], [address] [place] [address] 36 [address] 2018 [place] [address] 6:20am Hematocrit Ras 49.8 % 37.0-47.0 [facility], [address] [place] [address] E 2018 [place] [address] 6:20am Mean August 90.8 fl 81-99 [facility], [address] [place] [address] E Corpuscular 2018 [place] [address] Volume 6:20am Mean August 28.6 pg 27.0-31.2 [facility], [address] [place] [address] E Corpuscular 2018 [place] [address] Hemoglobin 6:20am Mean August 31.5 g/dL 31.8-35.4 [facility], [address] [place] [address] E Corpuscular 2018 [place] [address] Hemoglobin 6:20am Concent Red Cell August 14.0 % 11.5-17.5 [facility], [address] [place] [address] E Distribution 2018 Solvictor[place] [address] Width 6:20am Platelet Count August 214 K/mm3 142-424 [facility], [address] [place] [address] E 2018 [place] [address] 6:20am Mean Platelet August 8.9 fl 7.4-10.4 [facility], [address] [place] [address] E Volume 2018 [place] [address] 6:20am Neutrophils (%) August 57.6 % 37.0-80.0 [facility], [address] [place] [address] E (Auto) 2018 [place] [address] 6:20am Lymphocytes (%) August 33.5 % 10-50 [facility], [address] [place] [address] 36 E (Auto) 2018 [place] [address] 6:20am Monocytes (%) August 5.5 % 1.7-9.3 [facility], [address] [place] [address] E (Auto) 2018 [place] [address] 6:20am Eosinophils (%) August 2.7 % 0.1-12.0 [facility], [address] [place] [address] E (Auto) 2018 [place] [address] 6:20am Basophils (%) Ras 0.8 % 0.1-2.0 [facility], [address] [place] [address] 36 E (Auto) 2018 [place] [address] 6:20am Neutrophils # Ras 4.1 K/mm3 1.8-7.8 [facility], [address] [place] [address] 36 E (Auto) 2018 [place] [address] 6:20am Lymphocytes # Ras 2.4 K/mm3 0.7-4.5 [facility], [address] [place] [address] E (Auto) 2018 [place] [address] 6:20am Monocytes # Ras 0.4 K/mm3 0.1-1.0 [facility], [address] [place] [address] E (Auto) 2018 [place] [address] 6:20am Eosinophils # Ras 0.2 K/mm3 0.0-0.4 [facility], [address] [place] [address] E (Auto) 2018 [place] [address] 6:20am Basophils # Ras 0.1 K/mm3 0-0.2 [facility], [address] [place] [address] E (Auto) 2018 [place] [address] 6:20am Erythrocyte November 9 mm/hr 0-20 [facility], [address] [place] [address] E Sedimentation 2018 Maxim jacobdipehs [place] [address] Rate 7:53pm Urine Color August Yellow Yellow [facility], [address] [place] [address] E 2018 [place] [address] 8:45pm Urine November Clear Clear [facility], [address] [place] [address] 36 E Appearance 2018 Sel[place] [address] 8:45pm Urine pH August 6.0 5.0-8.5 [facility], [address] [place] [address] 36 E 2018 [place] [address] 8:45pm Urine Specific November 1.010 1.005-1.03 [facility], [address] [place] [address] 36 E [place] 2018 0 [place] [address] 8:45pm Urine Protein August Negative Negative [facility], [address] [place] [address] E 2018 [place] [address] 8:45pm Urine Glucose August 3+ Negative [facility], [address] [place] [address] E (UA) 2018 [place] [address] 8:45pm Urine Ketones November Trace Negative [facility], [address] [place] [address] E 2018 [place] [address] 8:45pm Urine Blood November Negative Negative [facility], [address] [place] [address] E 2018 [place] [address] 8:45pm Urine Nitrate November Negative Negative [facility], [address] [place] [address] 36 E 2018 [place] [address] 8:45pm Urine Bilirubin November Negative Negative [facility], [address] [place] [address] E 2018 [place] [address] 8:45pm Urine November 0.2 EU/dl [facility], [address] [place] [address] E Urobilinogen 2018 Kashif [place] [address] 8:45pm Urine Leukocyte November Negative Negative [facility], [address] [place] [address] E Esterase 2018 [place] [address] 8:45pm Urine WBC November Occasional [facility], [address] [place] [address] E 2018 #/hpf [place] [address] 8:45pm Urine Amorphous November Trace /lpf None [facility], [address] [place] [address] E Sediment 2018 [place] [address] 8:45pm Urine HCG, November Negative Negative [facility], [address] [place] [address] 36 E Qualitative 2018 [place] [address]32 8:45pm Troponin I August < 0.02 0.00-0.06 *ALERT* High [facility], [address] [place] [address] 36 E 2018 ng/ml levels of [place] [address] 2:20am Biotin can falsely depress Troponin results.Many dietary supplements promoted for hair,skin, and nail benefits contain biotin levels up to 650 times the recommended daily intake of biotin. In additon to dietary supplements, Biotin is occasionally prescribed for medical conditions. Sodium Level August 135 mmol/L 136-145 [facility], [address] [place] [address] 36 E 2018 [place] [address] 6:20am Potassium Level August 4.0 mmoL/L 3.5-5.1 [facility], [address] [place] [address] E 2018 [place] [address] 6:20am Chloride Level August 98 mmol/L 98-107 [facility], [address] [place] [address] 36 E 2018 [place] [address] 6:20am Carbon Dioxide August 26 mmol/L 21.0-32.0 [facility], [address] [place] [address] 36 E Level 2018 [place] [address] 6:20am Anion Gap August 15.0 mEq/L 5-15 [facility], [address] [place] [address] 36 E 2018 [place] [address] 6:20am Blood Urea August 14 mg/dL 7-18 Delta: 20 on [facility], [address] [place] [address] 36 E Nitrogen 201808/30/19 Kashif sriram [place] [address] 6:20am Creatinine August 0.80 mg/dL 0.55-1.02 Delta: 1.23 [facility], [address] [place] [address] 36 E 2018 on [place] [address] 6:20am 08/30/19 Estimated August 79 mL/min 0-300 [facility], [address] [place] [address] 36 E Creatinine 2018 [place] [address] Clearance 6:20am Estimated GFR August 92 ML/MIN >59 Delta: 56 on [facility], [address] [place] [address] 36 E ( 201808/30/19 Kashif sriram [place] [address] Greek) 6:20am Estimat August 76 ml/min >59 [facility], [address] [place] [address] 36 E Glomerular 2018 [place] [address] Filtration Rate 6:20am Glucose Level August 330 mg/dL 74-106 Delta: 451 on [facility], [address] [place] [address] 36 E 201808/30/19 Kash[place] [address] 6:20am Bedside Glucose August 353 70-110 [place] 2018 re (RALS) 11:51am Hemoglobin A1c August 11.0 % 0.0-7.0 < 6% [facility], [address] [place] [address] 36 E 2018 Non-Diabetic Sol dipesh [place] [address] 6:20am Level< 7% Controlled Diabetic Level> 8% Poorly Controlled Diabetic Level Calcium Level August 8.7 mg/dL 8.5-10.1 [facility], [address] [place] [address] E 2018 [place] [address] 6:20am Magnesium Level August 1.8 mg/dL 1.4-2.2 [facility], [address] [place] [address] E 2018 [place] [address] 6:20am Total Bilirubin August 0.3 mg/dL 0.2-1.0 [facility], [address] [place] [address] E 2018 [place] [address] 7:53pm Direct November 0.1 mg/dL 0.0-0.2 [facility], [address] [place] [address] E Bilirubin 2018 [place] 6[address] 7:53pm Indirect August 0.2 mg/dL 0.0-0.9 [facility], [address] [place] [address] E Bilirubin 2018 [place] 03642 7:53pm Aspartate Amino August 16 U/L 15-37 [facility], [address] [place] [address] E Transf 2018 [place] 15461 (AST/SGOT) 7:53pm Alanine August 26 U/L 12-78 [facility], [address] [place] [address] E Aminotransferas 2018 Stephany [place] 8[address] e (ALT/SGPT) 7:53pm C-Reactive August 1.1 mg/dL 0.0-0.9 [facility], [address] [place] [address] E Protein 2018 [place] 00[address] 7:53pm Total Protein August 8.0 gm/dL 6.4-8.2 [facility], [address] [place] [address] E 2018 [place] 48[address] 7:53pm Albumin August 3.3 gm/dL 3.4-5.0 [facility], [address] [place] [address] E 2018 [place] 28[address] 7:53pm Triglycerides August 199 mg/dL 30-200 [facility], [address] [place] [address] E Level 2018 [place] [address] 6:20am Cholesterol August 223 mg/dL 140-200 [facility], [address] [place] [address] E Level 2018 [place] 13952 6:20am LDL Cholesterol August 142 mg/dL 0-130 [facility], [address] 2018 [place] [address] 6:20am VLDL Ras 40 mg/dL 0-40 [facility], [address] [facility] [address] Cholesterol 2018 [place] [address] 6:20am HDL Cholesterol August 41 mg/dL 29-89 [facility], [address] 2018 [place] [address] 6:20am Cholesterol/HDL August 5.4 1-3.5 [facility], [facility] [address] Ratio 2018 [place] [address] 6:20am Alkaline August 179 U/L 46-116 [facility], [address] [place] [address] 36 E Phosphatase 2018 [place] 36960 7:53pm Diagnostic Imaging Reports Report Dictated Date/Time Dictated By Status Radiology Report August 26, 2019 Manish Fall MD completed 1:21pm [place] [id number] [facility] [address] [place] [id number] XRay R eport Sig dottie Patient: Seema Delacruz MR#: [id number] : 1970 Acct:[id number] Age/Sex: 49 / F ADM Date: 9 Loc: RAD Attending Dr: Vee Lilly APRN Ordering Physician: Vee Lilly APRN Date of Service: 08/26/19 Procedure(s): XR lumbar spine min 4V Accession Number(s): [id number] cc: Manish Fall MD; Faustino Amador MD~ PROCEDURE: XR LUMBAR SPINE MIN 4V CLINICAL INDICATION: BACK PAIN Low back pain COMPARISON: [id number] XR lumbar spine m in 4V from 05/07/2018 FINDINGS: Mild multilevel degenerative changes wi th small endplate osteophytes. There is 5 mm anterolisthesis of L4 on L5. Mild facet arthritic changes are present at the lumbosacral junction. The SI joints have an unremarkable appearance. No fractur e or dislocation. No lytic or blastic change IMPRESSION: Mild degenerative changes as described above Dictated by: Manish Fall MD 08/26/2019 15:20 Electronically signed by Manish Fall [place] 08/26/2019 15:20 Radiology Report August 30, 2019 Rey Burgos completed 8:15pm [facility] [address] [facility] [address] [place] [id number] XRay R eport Sig dottie Patient: Seeam Delacruz MR#: [id number] : 1970 Acct:[id number] Age/Sex: 49 / F ADM Date: 9 Loc: ER Attending Dr: Ordering Physician: Faustino Amador MD Date of Service: 08/30/19 Procedure(s): XR chest 2V Accession Number(s): [id number] cc: Rey Burgos ; Faustino Amador MD~ PROCEDURE: XR CHEST 2V CLINICAL HISTORY: chest pain COMPARISON: CTAC CTA-CHEST from 2016 CXR1 CHEST-PORTABLE fro m 01/05/2017 CXR CHEST(2 VIEWS-NOT PORTABLE) from 02/20/2017 CXR1 CHEST-PORTABLE fro m 02/25/2017 FINDINGS: The patient is obviously markedly obese and this is a somewhat poor inspiration. There is minimal atelecta sis or possibly a minimal developing pneumonic infiltrate right l ower lobe and a somewhat favor the former. The right upper lung field and left lung baker are clear. Cardiac size is normal and vasc ularity is normal and there is no pleural fluid. IMPRESSION: Probable right basilar atelectasis, no other significant abnormality noted Dictated by: Dr. Tanner Burgos MD 2018 20:[address] Carlos Burgos MD in [place] 08/30/2019 20:18 Advance Directives Advance Directive Response Recorded Date/Time Does the patient have an No June 03, 2019 8:50pm advanced directive on file? 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 Office Care-Marjorie Visit Registered [facility] Physician August 26, Vee Skylar Michael kayy Physician/[facility]-Radiology 2018 11:37am , STENOTYPE OPERATOR leno Office Visit Discharged [facility] Physician August 31, 2019 September 01, 2019 Kenia fonseca S Inpatient Group-Second 12:30am 3:50pm MD Marjorie Floor Registered [facility] Physician September 01, 2019 Faustino S Inpatient Group- 4:54pm MD Marjorie Recent Diagnosis Onset Date Angina at rest Chest pain Diabetes Hypertension Hypothyroidism Morbid obesity Assessments Diagnosis Onset Date Resolution Status Angina at rest acute Chest pain acute Diabetes chronic Hypertension chronic Hypothyroidism chronic Morbid obesity chronic Functional Status Observation Response Date Recorded Oral Care Ability Independent August 31, 2019 1 :05am Bathing Ability Independent August 31, 2019 1 :05am Eating (Feeding) Ability Independent August 31 019 1:05am Toileting Ability Assistance X1 August 31, 2019 1 :05am Ambulation Ability Standby Assistance August 31, 2019 1 :05am Functional status ambulatory June 03, 2019 8:50pm Goals Ambulatory Goals Patient verbalized understanding of dise ase process/healthy behaviors. Patient to follow plan of care. Education provid ed. Immunizations Immunization Event Date Not Given Dose Manufacturing Engineer Supervisor Lot Vac cine Reason Number Number Informatio n Statement (VIS) Deta Fluzone Quad July 01, [id number]+ 2018 Fluzone Quad July 19, 6-35 Months 2016 Fluzone Quad July 01, 6-35 Months 2017 Measles, Mumps, March 10, and Rubella 1997 Virus Vaccine Pneumococcal July 24, Conjugate 2015 Vaccine, 13 valent Pneumococcal November Polysacc. 2008 Vaccine, 23 valent Pneumococcal June Polysacc. 2015 Vaccine, 23 valent Mental Status Observation Response Date Recorded Comprehension Ability No Impairment September 01, 2019 6:39am Able to Read Yes August 31, 2019 1 :05am Able to Write Yes August 31, 2019 1 :05am Ability to Follow Directions Good August 1:05am Eye Contact Direct Eye Contact August 31, 2019 1 :05am [place] Expression Ability No Impairment August 31 1:05am Able to Read Yes August 26, 2019 12:17pm Able to Write Yes August 26, 2019 12:17pm Medical Equipment No Medical Equipment Information available Insurance Providers Guarantor Seema Delacruz Address [address] [address] Contact Info. Home Phone: Payer Policy Id Coverage Id Subscriber's Subscriber Effective Expi ration Name Id Date Date Mustapha [id number] Seema [id number] [facility] Medicare [id number] Seema [id number] October Self Pay Self N/A Plan of Treatment 1. Amox per inst 2. Alb INH refilled 3. Salt water gargle 4. Return for persistent/worsening symptoms Future Tests Future scheduled test information is unavailable Pending Tests Pending diagnostic test information is unavailable Future Visits Future appointment information is unavailable Referrals to Other Providers Reason for Referral Start Provider Provider Contact Provider Address Referral Date Information Admission to [facility] September [id number] [facility] Faustino Amador Work Phone: [address] [facility] [place] [address] Future Procedures Future procedure information is unavailable Future Medications Future medication information is unavailable Patient Instructions DI for Chronic Pain -- Adult Social History Observation Status Date of Observation Not August 30, 2019 Assigned Sex Female Vital Signs Vital Reading Result Reference Range Collection Date/ Time Height 167.64 cm June 03 019 2:44pm Weight 229.51 kg June 03 019 2:44pm Body Temperature 97.3 [degF] 97.6-99.6 June 03, 2019 2:44pm Heart Rate 114 /min 60-90 June 03 019 2:44pm Oxygen saturation by 97 % 95-100 June [id number] Pulse oximetry 2:44pm BP Systolic 138 mm[Hg] 110-140 June 03 019 2:44pm BP Diastolic 80 mm[Hg] 60-90 June 03 019 2:44pm BMI (Body Mass Index) 81.6 kg/m2 June 03, 2019 2:44pm Height 167.64 cm August 26 019 12:17pm Weight 220.89 kg August 26 019 12:17pm Heart Rate 85 /min 60-90 August 26 019 12:17pm Respiratory rate 18 /min 12-24 August 26, 2019 12:17pm Oxygen saturation by 98 % 95-100 August 262018 Pulse oximetry 12:17pm BP Systolic 147 mm[Hg] 110-140 August 26, 2 019 12:17pm BP Diastolic 69 mm[Hg] 60-90 August 26, 2 019 12:17pm BMI (Body Mass Index) 78.5 kg/m2 August 022018 12:17pm Height 168 cm September 01, 11:33am Weight 219.95 kg September 01, 11:33am Body Temperature 98.1 [degF] 97.6-99.6 September 01, 2 019 12:00pm Heart Rate 60 /min 60-90 September 01, 12:00pm Respiratory rate 18 /min -September 01, 019 12:00pm Oxygen saturation by 97 % 95-100 August Pulse oximetry 12:00pm BP Systolic 91 mm[Hg] 110-140 September 01, 12:00pm BP Diastolic 63 mm[Hg] 60-90 September 01, 12:00pm BMI (Body Mass Index) 77.9 kg/m2 September 012018 11:33am Inhaled oxygen 28 % September 01 concentration 2:35am
--- NOTE | 2019-09-01 19:20 | Cardiology Report ---
APPROVED REPORT EXAM: Comprehensive 2D, Doppler, and color-flow Echocardiogram Aerial Gunner: Siri Jeronimo RDCS Ht: 5 ft 6 in Wt: 478lbs BSA: 2.90 BP: 120/76 mmHg Indications: Chest Pain, COPD, Diabetes, Obesity, Hyperlipidemia, Hypertension/HDD,MORBID OBESITY 2D Dimensions LVOT 2.24 cm (M/F) 1.5-2.5 M-Mode Dimensions RVDd 3.49 cm (0.9-2.6)LVDd 2.91 cm (3.5-5.7) LVDs 2.00 cm (3.5-5.7)IVSd 1.75 cm (0.6-1.1) PWd 1.02 cm (0.6-1.1)EF (Teich) 60.90% FS 31.30% EDV (Teich) 32.50 mL ESV (Teich) 12.70 mL LV Diastology E/A Ratio 0.88 Mitral Valve MV A Velocity 85.00 (40-130 cm/s) Left Ventricle Left atrium is mildly enlarged, left ventricle is normal size, mild concentric left ventricular hypertrophy, visually estimated ejection fraction 55% with no regional wall motion abnormality. Doppler evidence of impaired LV relaxation seen, there is no tissue Doppler performed. Right Ventricle Right atrium and right ventricle mildly enlarged with normal contractility. Aortic Valve Aortic valve is minimally thickened and fibrosed, there is no aortic stenosis aortic insufficiency. Mitral Valve Mitral valve is grossly normal, there is mild mitral regurgitation. Tricuspid Valve Tricuspid valve is grossly normal, there is mild tricuspid regurgitation. Pulmonic Valve Pulmonic valve is poorly visualized. Great Vessels Aortic root is normal size. Pericardium No significant pericardial effusion noted. Conclusion 1. Mildly in the left atrium, normal left ventricular size, mild concentric left ventricular hypertrophy, visually estimated ejection fraction 55% with no regional wall motion abnormality, Doppler evidence of impaired LV relaxation seen, there is no tissue Doppler performed. 2. Mildly enlarged right ventricle with normal contractility. 3. Mild mitral and tricuspid regurgitation. 4. No significant pericardial effusion noted. Electronically signed by : Chano Watkins, 09/01/2019 19:20:32
== END 2019-09-01 15:50 | disposition home or self-care (01) ==
LOC: ER 19:50 → 2ND 23:56 → INTOOBSV 08-31 00:30 → 2ND 08-31 00:33
PROVIDERS: ADMIT Emergency Medicine; ATTEND Emergency Medicine
CPT/HCPCS: 36415; 71020; 71046; 80048; 80061; 80076; 81001; 81025; 82962; 83036; 83735; 84484; 85025; 85651; 86140; 93005; 93306; 94760; 96365; 96375; 99284; G0378; J2405

== ENCOUNTER → 2019-09-15 09:07 | Outpatient (POV) | payer MEDICARE, OTHER, SELFPAY ==
[2019-09-15 09:13] VITALS: BP 156/98; PULSE 94; RESP 18; O2SAT 98; BMI 75.0
--- NOTE | 2019-09-15 09:33 | HMH.PAINSOAP ---
[facility] Pain Management SOAP Note Subjective:: Patient is a pleasant 49-year-old morbidly obese white female presents today for low back pain and leg pain. Patient has not had any imaging due to her weight. She continues to have low back pain with lumbar radiculopathy symptoms. Patient says that she has taken oral opiates for many years, and is gotten little to no relief. She rates her pain an 8 out of 10 today. She states her pain is worse with standing and walking. She says that sitting does not relieve the pain. She also has difficulty sleeping due to the pain in her bilateral knees. Patient has tried and failed epidural steroid injections, along with anti-inflammatories. She also has attempted use of ice and heat therapies, along with a TENS unit. Patient says that she has a friend who is a patient at the clinic here with an intrathecal pump and has recommended that she try intrathecal pain therapy. Patient says she would just like to get some type of relief. Patient says she would like to be able to stop taking oral opiates. She does say that her primary care provider did prescribe her Percocets, however, she has not picked up that prescription yet. She would like to find out if it is okay to black pickler the prescription before undergoing the psychological evaluation for possible intrathecal pain pump. Patient is limited on a home stretching program due to her weight. Review of Systems General: No recent weight changes, no fever, no sleep disturbances Respiratory: No cough, no shortness of air, no recurring pulmonary infections Cardiovascular/peripheral vascular: No chest pain, no palpitations, no edema, no shortness of breath Gastrointestinal: No new onset incontinence, normal bowel movements reported Genitourinary: No new onset incontinence Musculoskeletal: Low back pain bilateral leg pain Psychiatric: Normal mood/affect Neurological: [Denies weakness in extremities], [denies balance issues] Objective:: Physical exam General: Alert and oriented x3, no acute distress, pleasant and cooperative, [on room air] Lungs: Respirations even and unlabored, symmetrical chest expansion Eyes: PERRL Musculoskeletal: Flexion and extension of lumbar spine somewhat guarded secondary to pain, deep tendon reflexes normal, strength in upper and lower extremities [5/5], [abnormal gait noted] Neurological: Speech clear, senior game developer equal, no gross sensory deficit Assessment:: Degenerative disease of lumbar spine, lumbar radiculopathy, morbid obesity Plan:: We will schedule the patient for a psychological evaluation for possible intrathecal pain pump therapy. Patient and I did have a long discussion concerning intrathecal therapy. She does understand she will need to stop taking oral opiates prior to the trial. Patient is in agreement. We will continue with conservative therapies until he returns to discuss her psychological evaluation. Following the evaluation, we will establish a plan of care. She has been instructed to contact the clinic if she has any concerns before her next appointment. Dr. Goddard has reviewed this note and agrees with this plan of care. This note was dictated using voice recognition software and make contain errors or omissions. [facility] History I have reviewed the patient's past medical history: Yes Medical History: Reports:: Anxiety, Congestive Heart Failure, Chronic Obstructive Pulmonary Disease (COPD), Diabetes Mellitus Type 2, Gastroesophageal Reflux Disease(GERD), Hyperlipidemia, Hypertension, MRSA Denies:: Cancer *Have you ever received a pneumonia vaccine?: Yes *Have you received a flu vaccine this season?: Yes Other Medical History: Reports: Anemia, Arthritis, Hypothyroidism, Thyroid Disease Laterality Cases: Bilateral: Arthroscopy Knee Other Surgeries: Yes: Cardiac Catheterization Amputation: No Fractures: No - *Social History Smoking Status: Former smoker Tobacco Type: cigarettes # Packs/Day (cigarettes): 35 A
== END ==
PROVIDERS: PCP Emergency Medicine; Visit Provider Clinical Nurse Specialist Family Health
DX: M51.16 Intervertebral disc disorders with radiculopathy, lumbar region (principal); E66.01 Morbid (severe) obesity due to excess calories
CPT/HCPCS: 99212

== ENCOUNTER → 2019-11-10 13:32 | Outpatient (CLI) | payer MEDICARE, OTHER, SELFPAY ==
[2019-11-10 16:39] LABS: Amphetamine/Metha Screen,Urine Negative ng/mL (<1000); Barbiturates Screen,Urine Negative ng/mL (<200); Benzodiazepines Screen,Urine Negative ng/mL (<200); Cannabinoid Screen,Urine Negative ng/mL (<50); Cocaine Screen,Urine Negative ng/mL (<300); Methadone Screen,Urine Negative ng/mL (<300); Opiate Screen,Urine Negative ng/mL (<300); Phencyclidine Screen,Urine Negative ng/mL (<25)
[2019-11-21 10:35] LABS: Opiates Negative (Cutoff=100)
== END ==
PROVIDERS: Visit Provider Emergency Medicine
DX: M47.816 Spondylosis without myelopathy or radiculopathy, lumbar region (principal); Z79.899 Other long term (current) drug therapy
CPT/HCPCS: 80305; 80361; 80365; G0480

== ENCOUNTER → 2019-11-26 08:29 | Outpatient (CLI) | payer MEDICARE, OTHER, MEDICAID, SELFPAY ==
--- NOTE | 2019-11-26 08:34 | MM_ITS ---
PROCEDURE: MM DIG SCREENING MAMM BI W/CAD CLINICAL INDICATION: screening There is a history of breast cancer patient's paternal aunt. COMPARISON: No exams were available for comparison TECHNIQUE: Standard CC and MLO images and 3D Tomosynthesis was obtained. R2 CAD reviewed. FINDINGS: The breasts are composed primarily of fat. Minimal glandular elements are seen central portion of the right breast. There is an asymmetric density lower outer quadrant left breast with somewhat irregular borders best visualized on the adriane images measuring 2.8 by 3.2 x 2.2 cm. There are a couple of the associated microcalcifications recommend the patient return for spot compression views and ultrasound for additional evaluation. IMPRESSION: Fatty type breast parenchyma, asymmetric density left breast BI-RAD Category: 0 Need Additional Imaging Evaluation FOLLOW-UP: IMM Immediate Follow-up Recommended (A letter has been sent to the patient regarding results of the study.) Dictated by: Dr. Tanner Burgos MD 12/01/2019 15:[address] Tanner Burgos MD in [place] 12/01/2019 15:10
== END ==
PROVIDERS: PCP Emergency Medicine; Visit Provider Emergency Medicine
DX: Z12.31 Encounter for screening mammogram for malignant neoplasm of breast (principal)
CPT/HCPCS: 77063; 77067

== ENCOUNTER → 2019-12-09 13:48 | Outpatient (CLI) | payer MEDICARE, OTHER, SELFPAY | PROVIDERS: Visit Provider Emergency Medicine | DX: E11.9 Type 2 diabetes mellitus without complications (principal) | CPT/HCPCS: 80053; 80061; 82043; 82570; 82652; 83036; 84436; 84443; 85025 ==

== ENCOUNTER → 2019-12-09 15:07 | Outpatient (CLI) | payer MEDICARE, OTHER, SELFPAY ==
--- NOTE | 2019-12-09 15:07 | US_ITS ---
PROCEDURE: MM DIG MAMM DX UNILAT LT CAD Digital Breast Tomosynthesis Included CLINICAL INDICATION: abnormal mammogram The the is COMPARISON: MM DIG SCREENING MAMM BI W/CAD from 11/26/2019 US BREAST LT COMPLETE from 12/09/2019 TECHNIQUE: Standard CC and MLO images and 3D Tomosynthesis was obtained. R2 CAD reviewed. FINDINGS: Left mammogram spot-compression views obtained demonstrates at 2.8 1.6 cm density inferior of the left breast at the 5 o'clock region. The margins are somewhat sharp on the MLO view but not on the CC view. Left breast ultrasound: There is a complex 2.5 x 1 cm nodule in the 6 o'clock region of the left breast. The lodge ule is heterogeneous containing areas of increase and decreased echogenicity. There is some posterior acoustical shadowing however. There may be a small cystic component along the left aspect of the nodule. IMPRESSION: Suspicious nodule 6 o'clock region of the left breast. This could represent a hamartoma secondary to the areas of increased echogenicity which could possibly represent fat. There is however some posterior acoustical shadowing therefore, biopsy is suggested as neoplasm is not excluded BI-RAD Category: 4 Suspicious Abnormality - Biopsy Considered FOLLOW-UP: (A letter has been sent to the patient regarding results of the study.) Dictated by: Manish Fall MD 12/09/2019 15:58 Electronically signed by Manish Fall MD in [place] 12/09/2019 15:58
[2019-12-09 15:24] LABS: Basophils % 0.5 % (0.1-2.0); Eosinophils # 0.2 K/mm3 (0.0-0.4); Eosinophils % 2.9 % (0.1-12.0); Hematocrit 46.2 % (37.0-47.0); Hemoglobin 15.3 g/dL (12.2-16.2); Lymphocytes # 1.9 K/mm3 (0.7-4.5); Lymphocytes % 29.2 % (10-50); Mean Corpuscular HGB Conc 33.1 g/dL (31.8-35.4); Mean Corpuscular Hemoglobin 29.3 pg (27.0-31.2); Mean Corpuscular Volume 88.4 fl (81-99); Monocytes # 0.4 K/mm3 (0.1-1.0); Monocytes % 6.7 % (1.7-9.3); Neutrophils % 60.7 % (37.0-80.0); Platelet Count 258 K/mm3 (142-424); Red Blood Count 5.23 M/mm3 (4.20-5.40); White Blood Count 6.6 K/mm3 (4.8-10.8)
[2019-12-09 16:39] LABS: Chloride 101 mmol/L (98-107); Potassium 4.3 mmoL/L (3.5-5.1); Sodium 138 mmol/L (136-145)
[2019-12-09 16:41] LABS: Blood Urea Nitrogen 12 mg/dl (7-17); Estimated Glomerular Filt Rate 131 ml/min (>60); GFR (African American) 158 ML/MIN (>60)
[2019-12-09 16:42] LABS: Alanine Aminotransferase 22 U/L (12-78); Albumin Level 3.9 g/dl (3.5-5.0); Albumin/Globulin Ratio 1.2 (1.1-1.8); Alkaline Phosphatase 164 U/L (38-126); Anion Gap 15.3 mEq/L (5-15); Aspartate Amino Transferase 26 U/L (14-36); Bilirubin,Total 0.3 mg/dl (0.2-1.3); Calcium 9.7 mg/dl (8.4-10.2); Carbon Dioxide 26 mmol/L (22.0-30.0); Chol/HDL Ratio 4.6 (1-3.5); Cholesterol 207 mg/dl (140-200); Globulin 3.3 g/dL (1.3-3.2); Glucose 256 mg/dl (74-100); HDL Cholesterol 45 mg/dl (40-60); Total Protein,Serum 7.2 g/dl (6.3-8.2); Triglycerides 149 mg/dl (30-150); VLDL Cholesterol 30 mg/dL (0-40)
[2019-12-09 16:53] LABS: Direct LDL Cholesterol 134.73 mg/dL (100-129)
[2019-12-09 16:58] LABS: T4 (Thyroxine) 8.4 ug/dl (5.53-11.0)
[2019-12-09 19:24] LABS: Hemoglobin A1C 13.7 % (4.0-6.0)
== END ==
PROVIDERS: PCP Emergency Medicine; Visit Provider Emergency Medicine
DX: R92.8 Other abnormal and inconclusive findings on diagnostic imaging of breast (principal); E11.69 Type 2 diabetes mellitus with other specified complication; E78.5 Hyperlipidemia, unspecified; E03.9 Hypothyroidism, unspecified; R07.9 Chest pain, unspecified; Z79.4 Long term (current) use of insulin
CPT/HCPCS: 76641; 77061; 77065; 80053; 80061; 82043; 82570; 82652; 83036; 84436; 84443; 85025; G0279

== ENCOUNTER → 2019-12-23 10:19 | Outpatient (CLI) | payer MEDICARE, OTHER, SELFPAY ==
--- NOTE | 2019-12-23 10:26 | US_ITS ---
PROCEDURE: US MAMMOTOME BX LT CLINICAL INDICATION: LT BREAST NODULE COMPARISON: MM DIG SCREENING MAMM BI W/CAD from 11/26/2019 US BREAST LT COMPLETE from 12/09/2019 MM DIG MAMM DX UNILAT LT CAD from 12/09/2019 MM DIG MAMM DX UNILAT LT CAD from 12/23/2019 FINDINGS: Technique: Following obtaining informed consent and time-out procedure under aseptic conditions and local anesthesia with 1 percent buffered lidocaine and deeper anesthesia with lidocaine mixed with epinephrine with ultrasound guidance, mammotome needle was inserted into the suspicious shadowing nodule at 4 o'clock. Multiple mammotome biopsies were obtained and then a clip was placed. The patient tolerated the procedure well without evidence of immediate complication. Pathology: Benign breast with mildly proliferative fibrocystic changes. Angiomatous stromal hyperplasia. Negative for carcinoma. Post biopsy mammogram: Post biopsy changes are noted in the region of the suspicious nodule at 4 o'clock. Biopsy clip is present at this region. The nodule itself appears slightly smaller. IMPRESSION: Uneventful ultrasound-guided mammotome biopsy of left breast showing benign findings. Recommend follow-up mammogram and ultrasound in 6 months to confirm short term stability per routine protocol. Dictated by: Manish Fall MD 12/26/2019 10:48 Electronically signed by Manish Fall MD in [place] 12/26/2019 10:48
== END ==
PROVIDERS: PCP Emergency Medicine; Visit Provider Emergency Medicine
DX: R92.8 Other abnormal and inconclusive findings on diagnostic imaging of breast (principal); N63.23 Unspecified lump in the left breast, lower outer quadrant
CPT/HCPCS: 19083; 76942; 77061; 77065; 88305; C2618; G0279

== ENCOUNTER → 2020-01-07 13:39 | Outpatient (CLI) | payer MEDICARE, OTHER, SELFPAY ==
[2020-01-09 14:22] LABS: C-Peptide 2.4 ng/mL (1.1-4.4)
== END ==
PROVIDERS: Visit Provider Nurse Practitioner Family
DX: E11.9 Type 2 diabetes mellitus without complications (principal); Z79.4 Long term (current) use of insulin; Z79.84 Long term (current) use of oral hypoglycemic drugs
CPT/HCPCS: 36415; 84681

== ENCOUNTER → 2020-02-09 12:41 | Outpatient (POV) | payer MEDICARE, OTHER, SELFPAY ==
[2020-02-09 13:09] VITALS: BP 135/85; PULSE 78; RESP 18; TEMP 36.7; O2SAT 99; BMI 69.7
--- NOTE | 2020-02-10 08:08 | P.CONS_ITS ---
[facility] Pain Management SOAP Note Subjective:: Patient is a pleasant 49-year-old white female who presents today for follow-up. Patient had an intrathecal pain pump trial in which she got significant relief of her symptomology. Patient said has been off oral opioids. Patient had an appropriate psychological evaluation. Patient has lost 132 pounds since her intrathecal trial. She is currently at 432 pounds. When she reaches 400 pounds we will move forward with her intrathecal trial. She comes today with right shoulder pain mostly in her AC joint we discussed an AC joint injection. ROS General: no recent weight change, no fever, no sleep disturbances Respiratory: no cough, no shortness of air, no recurring pulmonary infections Cardiovascular/Peripheral Vascular: No chest pain, No palpitations, no edema, no shortness of breath. Gastrointestinal: no new onset incontinence, normal bowel movements reported Genitourinary: no new onset incontinence Musculoskeletal: Right shoulder pain, back pain Psychiatric: normal mood/ affect Neurological: [denies new onset weakness in extremities], [denies new onset balance issues] Objective:: Physical Exam General: Alert and oriented x3, no acute distress, pleasant and cooperative, [on room air] Lungs: Resps E/U, Symmetrical chest expansion, Eyes: PERRL Musculoskeletal: Flexion and extension of lumbar spine somewhat guarded secondary to pain, deep tendon reflexes normal, strength in upper and lower extremities [5/5], [abnormal gait noted], decreased range of motion right shoulder, extreme tenderness in the right AC joint palpation Neurological: speech clear, 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 After this we will move forward with an intrathecal implant. Patient's been instructed to call the office if she has any issues prior to this appointment. T Dr. Goddard has reviewed this note and agrees with this plan of care. This note was dictated using voice recognition software and may contain errors or omissions [facility] History I have reviewed the patient's past medical history: Yes Medical History: Reports:: Anxiety, Congestive Heart Failure, Chronic Obstructive Pulmonary Disease (COPD), Diabetes Mellitus Type 2, Gastroesophageal Reflux Disease(GERD), Hyperlipidemia, Hypertension, Migraine, MRSA Denies:: Cancer, Seizures *Have you ever received a pneumonia vaccine?: Yes *Have you received a flu vaccine this season?: Yes Other Medical History: Reports: Anemia, Arthritis, Hypothyroidism, Thyroid Disease Laterality Cases: Left: Arthroscopy Knee Other Surgeries: Yes: Cardiac Catheterization Amputation: No Fractures: No - *Social History Smoking Status: Former smoker Tobacco Type: cigarettes # Packs/Day (cigarettes): 35 Alcohol Intake: never Substance Use Type: denies use *Occupational Status:: other Housing: house *Travel in the last 8 weeks: None - Psychiatric History Pschychiatric History:: Reports:: Anxiety Family Hx:: Hypertension, Hyperlipidemia, Cancer, Diabetes
== END ==
PROVIDERS: PCP Emergency Medicine; Visit Provider Clinical Nurse Specialist Family Health
DX: M51.36 Other intervertebral disc degeneration, lumbar region (principal); M19.011 Primary osteoarthritis, right shoulder
CPT/HCPCS: 99212

== ENCOUNTER 2020-02-20 09:47 | Day surgery (SDC) | payer MEDICARE, OTHER, SELFPAY ==
[2020-02-20 10:42] VITALS: BP 144/72; PULSE 77; RESP 18; TEMP 36.7; O2SAT 98; BMI 67.4
--- NOTE | 2020-02-20 10:51 | PC.NURSE ---
FSBS: 285 Dr. Goddard made aware, no new orders
[2020-02-20 10:55] VITALS: BP 145/80; PULSE 77; RESP 20; O2SAT 98
[2020-02-20 10:57] VITALS: BP 135/69; PULSE 75; RESP 20; O2SAT 98
[2020-02-20 10:59] LABS: POC Glucose,Bedside 285 (70-110)
--- NOTE | 2020-02-20 11:02 | HMH.PMPROC ---
- Procedure Date: 02/20/20 Time: 11:03 Anesthesiologist:: Adelso Goddard MD Complications:: None Pre-procedure Diagnosis:: Right shoulder pain with degenerative osteoarthritis and acromioclavicular joint arthritis Post-procedure Diagnosis:: Same Indications for Procedure:: This patient is a pleasant 49-year-old white female who we are treating for low back pain with lumbar radicular symptoms. She continues to lose significant weight in anticipation of her intrathecal pain pump implant. She is down to 418 pounds at this time. She has lost over 160 pounds. I told her we will plan on implant after she is less than 400 pounds. She continues to work towards this goal. She did have a successful intrathecal pump trial. She now is complaining of some right shoulder pain with AC joint arthritis. We will do a right shoulder injection with acromioclavicular joint injection today to help her with her pain symptoms. Procedure Details:: Right shoulder injection Informed consent was obtained and the risk and benefits of the procedure were explained to the patient. The right shoulder was prepped using ChloraPrep. A 25-gauge needle was used and we injected 10 mL bupivacaine 0.25% and Depo-Medrol 40 mg into the right acromioclavicular joint and right shoulder joint and suprascapular nerve area. Patient tolerated the procedure well with no complications. Plan and Disposition:: We will follow-up with her in 2 weeks. Will reevaluate her symptoms at that time. She is also complaining of some right elbow pain. We will assess this at her follow-up visit.
[2020-02-20 11:13] VITALS: BP 136/72; PULSE 75; RESP 20; O2SAT 98
== END 2020-02-20 11:13 | disposition home or self-care (01) ==
LOC: SC.PAINP 09:49
PROVIDERS: PCP Emergency Medicine; Visit Provider Anesthesiology
DX: I10 Essential (primary) hypertension (principal); E66.9 Obesity, unspecified; E78.5 Hyperlipidemia, unspecified; Z68.44 Body mass index [BMI] 60.0-69.9, adult; Z79.82 Long term (current) use of aspirin; Z79.4 Long term (current) use of insulin; Z79.899 Other long term (current) drug therapy; Z87.891 Personal history of nicotine dependence; Z85.9 Personal history of malignant neoplasm, unspecified; M19.011 Primary osteoarthritis, right shoulder
CPT/HCPCS: 20610; 82962; J1040

== ENCOUNTER → 2020-03-08 11:55 | Outpatient (POV) | payer MEDICARE, OTHER, SELFPAY ==
--- NOTE | 2020-03-08 12:09 | P.CONS_ITS ---
[facility] Pain Management SOAP Note Subjective:: Very pleasant 49-year-old white female who presents today for follow-up after a shoulder injection. She still having shoulder pain we discussed potential Ortho consultation. However she is also here to discuss her back pain. Patient has recently lost over 106 70 pounds and is now under 400 pounds. She is currently at 393 and is going to continue to lose weight. Patient had an intrathecal pain pump trial and it was extremely successful. She is now at the weight we can move forward with an implant. I discussed all the pros and cons risks and benefits of the procedure. She rates her pain today a 7 out of 10. ROS General: no recent weight change, no fever, no sleep disturbances Respiratory: no cough, no shortness of air, no recurring pulmonary infections Cardiovascular/Peripheral Vascular: No chest pain, No palpitations, no edema, no shortness of breath. Gastrointestinal: no new onset incontinence, normal bowel movements reported Genitourinary: no new onset incontinence Musculoskeletal: Back pain, leg pain Psychiatric: normal mood/ affect Neurological: [denies new onset weakness in extremities], [denies new onset balance issues] Objective:: Physical Exam General: Alert and oriented x3, no acute distress, pleasant and cooperative, [on room air] Lungs: Resps E/U, Symmetrical chest expansion, Eyes: PERRL Musculoskeletal: Flexion and extension of lumbar spine somewhat guarded secondary to pain, deep tendon reflexes normal, strength in upper and lower extremities [5/5], [abnormal gait noted] Neurological: speech clear, instrument technician 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 I discussed with her that we utilize morphine. She is getting [place] 5 mg from her primary care she will be off of it 48 hours prior to implant. She understands this. I will follow-up with her after this reassess her symptoms at that time she has been instructed to call the office if she has any issues prior to her next appointment. She also is not on any anticoagulation therapy. We will continue to lose weight post surgery. We discussed a goal of another 100 pounds to be lost. Patient and I discussed ways that I can facilitate this including physical therapy, nutritional visits and wellness programs. Dr. Goddard has reviewed this note and agrees with this plan of care. This note was dictated using voice recognition software and may contain errors or omissions [facility] History I have reviewed the patient's past medical history: Yes Medical History: Reports:: Anxiety, Congestive Heart Failure, Chronic Obstructive Pulmonary Disease (COPD), Diabetes Mellitus Type 2, Gastroesophageal Reflux Disease(GERD), Hyperlipidemia, Hypertension, Migraine Denies:: Cancer, MRSA, Seizures *Have you ever received a pneumonia vaccine?: No *Have you received a flu vaccine this season?: No Other Medical History: Reports: Anemia, Arthritis, Hypothyroidism, Thyroid Disease Laterality Cases: Left: Arthroscopy Knee Other Surgeries: Yes: Cardiac Catheterization Amputation: No Fractures: No - *Social History Smoking Status: Former smoker Tobacco Type: cigarettes # Packs/Day (cigarettes): 35 Alcohol Intake: never Substance Use Type: denies use *Occupational Status:: disabled Housing: house *Travel in the last 8 weeks: None - Psychiatric History Pschychiatric History:: Reports:: Anxiety Family Hx:: Hypertension, Hyperlipidemia, Cancer, Diabetes
[2020-03-08 12:17] VITALS: BP 182/75; PULSE 69; RESP 18; O2SAT 98; BMI 63.4
== END ==
PROVIDERS: PCP Emergency Medicine; Visit Provider Clinical Nurse Specialist Family Health
DX: Z09 Encounter for follow-up examination after completed treatment for conditions other than malignant neoplasm (principal); M51.16 Intervertebral disc disorders with radiculopathy, lumbar region
CPT/HCPCS: 99212

== ENCOUNTER → 2020-03-08 15:49 | Outpatient (CLI) | payer MEDICARE, OTHER, SELFPAY ==
[2020-03-08 16:08] LABS: Chloride 98 mmol/L (98-107)
[2020-03-08 16:09] LABS: Potassium 4.9 mmoL/L (3.5-5.1); Sodium 137 mmol/L (136-145)
[2020-03-08 16:11] LABS: Alanine Aminotransferase 19 U/L (12-78); Alkaline Phosphatase 231 U/L (38-126); Anion Gap 19.9 mEq/L (5-15); Aspartate Amino Transferase 22 U/L (14-36); Bilirubin,Total 0.7 mg/dl (0.2-1.3); Blood Urea Nitrogen 13 mg/dl (7-17); Carbon Dioxide 24 mmol/L (22.0-30.0); Estimated Glomerular Filt Rate 131 ml/min (>60); GFR (African American) 158 ML/MIN (>60)
[2020-03-08 16:12] LABS: Albumin Level 4.1 g/dl (3.5-5.0); Albumin/Globulin Ratio 1.2 (1.1-1.8); Calcium 9.8 mg/dl (8.4-10.2); Chol/HDL Ratio 5.1 (1-3.5); Cholesterol 247 mg/dl (140-200); Globulin 3.4 g/dL (1.3-3.2); HDL Cholesterol 48 mg/dl (40-60); Total Protein,Serum 7.5 g/dl (6.3-8.2); Triglycerides 281 mg/dl (30-150); VLDL Cholesterol 56 mg/dL (0-40)
[2020-03-08 16:23] LABS: Direct LDL Cholesterol 176.06 mg/dL (100-129)
[2020-03-08 16:29] LABS: Free T4 (Free Thyroxine) 1.88 ng/dl (0.78-2.19)
[2020-03-08 16:31] LABS: Glucose 430 mg/dl (74-100)
[2020-03-08 16:43] LABS: Thyroid Stimulating Hormone < 0.02 uIU/mL (0.465-4.68)
[2020-03-08 18:19] LABS: Hemoglobin A1C > 14.0 % (4.0-6.0)
[2020-03-10 09:41] LABS: Vitamin D 25 Hydroxy 19.6 ng/mL (30.0-100.0)
== END ==
PROVIDERS: Visit Provider Emergency Medicine
DX: E11.42 Type 2 diabetes mellitus with diabetic polyneuropathy (principal); Z79.4 Long term (current) use of insulin; R53.83 Other fatigue; E03.9 Hypothyroidism, unspecified; K59.00 Constipation, unspecified; E55.9 Vitamin D deficiency, unspecified
CPT/HCPCS: 80053; 80061; 82652; 83036; 84439; 84443; 99212

== ENCOUNTER → 2020-03-16 10:08 | Outpatient (CLI) | payer MEDICARE, OTHER, SELFPAY ==
[2020-03-16 10:46] LABS: Basophils % 0.6 % (0.1-2.0); Eosinophils # 0.2 K/mm3 (0.0-0.4); Hemoglobin 15.5 g/dL (12.2-16.2); Lymphocytes # 1.9 K/mm3 (0.7-4.5); Lymphocytes % 30.5 % (10-50); Mean Corpuscular HGB Conc 33.7 g/dL (31.8-35.4); Monocytes # 0.5 K/mm3 (0.1-1.0); Monocytes % 7.3 % (1.7-9.3); Neutrophils # 3.6 K/mm3 (1.8-7.8); Neutrophils % 58.6 % (37.0-80.0); Platelet Count 210 K/mm3 (142-424); Red Blood Count 5.17 M/mm3 (4.20-5.40); Red Cell Distribution Width 14.4 % (11.5-17.5); White Blood Count 6.1 K/mm3 (4.8-10.8)
[2020-03-16 11:24] LABS: Amphetamine/Metha Screen,Urine Negative ng/ml (<1000); Barbiturates Screen,Urine Negative ng/ml (<200)
[2020-03-16 11:25] LABS: Benzodiazepines Screen,Urine Negative ng/ml (<200)
[2020-03-16 11:26] LABS: Cannabinoid Screen,Urine Negative ng/ml (<50); Cocaine Screen,Urine Negative ng/ml (<300)
[2020-03-16 11:27] LABS: Methadone Screen,Urine Negative ng/ml (<300); Opiate Screen,Urine Positive ng/ml (<300)
[2020-03-16 11:28] LABS: Phencyclidine Screen,Urine Negative ng/ml (<25)
[2020-03-16 11:30] LABS: Anion Gap 13.5 mEq/L (5-15); Blood Urea Nitrogen 10 mg/dl (7-17); Calcium 9.9 mg/dl (8.4-10.2); Carbon Dioxide 31 mmol/L (22.0-30.0); Chloride 97 mmol/L (98-107); Estimated Glomerular Filt Rate 131 ml/min (>60); GFR (African American) 158 ML/MIN (>60); Glucose 303 mg/dl (74-100); Potassium 4.5 mmoL/L (3.5-5.1); Sodium 137 mmol/L (136-145)
[2020-03-16 13:46] LABS: Coronavirus 19 IgG Antibody Negative (Negative); Coronavirus 19 IgM Antibody Negative (Negative)
--- NOTE | 2020-03-24 13:58 | PC.NURSE ---
called in RX for tramadol HCL 50mg, one PO TIDPRN pain #15 with no refills per md order
== END ==
PROVIDERS: Visit Provider Anesthesiology
DX: Z01.812 Encounter for preprocedural laboratory examination (principal); Z01.84 Encounter for antibody response examination; M54.16 Radiculopathy, lumbar region
CPT/HCPCS: 36415; 80048; 80305; 85025; 86328

== ENCOUNTER 2020-03-17 09:12 | Day surgery (SDC) | payer MEDICARE, OTHER, SELFPAY ==
--- NOTE | 2020-03-15 12:21 | SUR.PREOP ---
03/15/2020 @ 5302--PHONE CALL MADE TO PATIENT. PATIENT UNDERSTANDS THAT LAB WORK AND COVID TESTING NEEDS TO BE COMPLETED @ 1000. PATIENT UNDERSTANDS IF LAB WORK AND COVID-19 TESTS ARE NOT COMPLETED BY 12PM ON THAT DATE, THE SURGERY SCHEDULED WILL BE CANCELLED AND RESCHEDULED FOR ANOTHER TIME.
[2020-03-15 14:34] VITALS: BMI 63.4
[2020-03-17 09:46] VITALS: BP 119/68; PULSE 77; RESP 18; TEMP 36.7; O2SAT 99
[2020-03-17 09:47] LABS: HCG Qualitative, Serum Negative (Negative)
[2020-03-17 09:57] LABS: POC Glucose,Bedside 358 (70-110)
--- NOTE | 2020-03-17 10:14 | HMH.PMCON ---
Assessment and Plan - Assessment and plan all Dx Assessment and Plan for all problems:: Impression-degenerative disc disease of the lumbar spine with radiculopathy Plan-placement of intrathecal pain pump generator and catheter today HPI - Data of Consult Patient: new to practice Consult date: 03/17/20 Requesting Physician: Adelso Goddard MD Primary Care Provider: Faustino Amador MD - Consult Narrative Reason for consult: Back and leg pain History of present illness: Ms. Delacruz is a 49 year old female referred for placement of intrathecal pain pump system. Patient has degenerative disc disease of the lumbar spine with radiculopathy. Attempts at pain leave has been unsuccessful. Patient had a intrathecal pain pump trial with significant improvement she comes in today for placement of that system CC: Adelso Goddard MD [facility] History Medical History: Reports:: Anxiety, Congestive Heart Failure, Chronic Obstructive Pulmonary Disease (COPD), Diabetes Mellitus Type 2, Gastroesophageal Reflux Disease(GERD), Hyperlipidemia, Hypertension, Migraine Denies:: Cancer, Diabetes Mellitus Type 1, Internal Pacemaker, MRSA, Seizures *Have you ever received a pneumonia vaccine?: Yes *Have you received a flu vaccine this season?: Yes Other Medical History: Reports: Anemia, Arthritis, Hypothyroidism, Thyroid Disease. Denies: Blood Transfusion Reaction Comment:: Illnesses-obesity, hypertension, history congestive heart failure, hyperlipidemia, history of pulmonary embolus, COPD with oxygen at night, GERD, anxiety and depression, hypothyroidism, chronic back pain Laterality Cases: Bilateral: Arthroscopy Knee, Total Knee Replacement Other Surgeries: Yes: Cardiac Catheterization. No: Pacemaker Amputation: No Fractures: No Comment: Operations-cardiac cath, bilateral knee arthroscopy - *Social History Educational Level: Completed High School Smoking Status: Former smoker Tobacco Type: cigarettes # Packs/Day (cigarettes): 35 Alcohol Intake: never Substance Use Type: denies use *Occupational Status:: disabled Housing: house Household Members: other *Travel in the last 8 weeks: None - Psychiatric History Pschychiatric History:: Reports:: Anxiety Family Hx:: Asthma, Cancer, Coronary Artery Disease, Diabetes, Heart Attack, Hyperlipidemia, Hypertension Review of Systems - Review of Systems Review of systems:: pertinent systems reviewed and negative unless documented below Meds Home Medications Medication Instructions Recorded Confirmed Type albuterol sulfate 90 mcg/actuation 2 puff INHALATION QID #6.7 g 10/13/19 03/17/20 Rx aerosol inhaler nitroglycerin 0.4 mg sublingual 0.4 mg SUBLINGUAL Q5-15M #30 tab 10/13/19 03/17/20 Rx tablet blood sugar diagnostic See Rx Instructions .ROUTE 01/07/20 03/17/20 Rx .MEDSUPPLY #100 each amlodipine 10 mg tablet 10 mg PO DAILY #90 tab 01/12/20 03/17/20 Rx carvedilol 25 mg tablet 25 mg PO BID 90 Days #180 tab 01/12/20 03/17/20 Rx duloxetine 60 mg capsule,delayed 60 mg PO DAILY #90 cap 01/12/20 03/17/20 Rx release escitalopram oxalate 20 mg tablet 20 mg PO DAILY #90 tab 01/12/20 03/17/20 Rx fenofibrate 54 mg tablet 54 mg PO DAILY #90 tab 01/12/20 03/17/20 Rx furosemide 80 mg tablet 80 mg PO BID #180 tab 01/12/20 03/17/20 Rx isosorbide mononitrate 30 mg 30 mg PO DAILY #90 tab 01/12/20 03/17/20 Rx tablet,extended release 24 hr pantoprazole 40 mg tablet,delayed 40 mg PO DAILY #90 tab 01/12/20 03/17/20 Rx release ropinirole 3 mg tablet 3 mg PO HS #90 tab 01/12/20 03/17/20 Rx simvastatin 40 mg tablet 40 mg PO QHS #90 tab 01/12/20 03/17/20 Rx tizanidine 4 mg tablet 4 mg PO BID 90 Days #180 tab 01/12/20 03/17/20 Rx trazodone 50 mg tablet 50 mg PO DAILY #90 tab 01/12/20 03/17/20 Rx Aspirin [Low Dose Aspirin EC] 81 mg PO DAILY 02/20/20 03/17/20 History Blood Sugar Diagnostic [Accu-Chek See Rx Instructions .ROUTE 02/20/20 03/17/20 History Lorin Plus test strp] .MEDSULY Blood-Glucose Meter
--- NOTE | 2020-03-17 10:40 | HMH.ANESCL ---
[facility] Anesthesia Checklist - Patient Identification Patient Identification: Arm Band - Structural Data Admitted From: Home Planned Operative Procedure/s: intrathecal pain pump catheter and generator placement Consent for Planned Operative Procedure(s) Verified: Yes Verified Documents: Surgical Consent, History and Physical - NPO Status Verified Time NPO: 00:00 - Additional verifications Anesthesia Reactions: No Hx Blood Transfusions: No Blood Transfusion Reaction: No - Airway Assessment C-Spine Mobility Assessed: Yes (mp2) TMJ Mobility Assessed: Yes Dentition: Good Dentition - Neurological Assessment Level of Consciousness: Awake, Alert - Anesthesia Plan Anesthesia Risk discussed: Yes Anesthesia Plan: Verified ASA Class: III Anesthesia Type: MAC [facility] History I have reviewed the patient's past medical history: Yes Medical History: Reports:: Anxiety, Congestive Heart Failure, Chronic Obstructive Pulmonary Disease (COPD), Diabetes Mellitus Type 2, Gastroesophageal Reflux Disease(GERD), Hyperlipidemia, Hypertension, Migraine Denies:: Cancer, Diabetes Mellitus Type 1, Internal Pacemaker, MRSA, Seizures *Have you ever received a pneumonia vaccine?: Yes *Have you received a flu vaccine this season?: Yes Other Medical History: Reports: Anemia, Arthritis, Hypothyroidism, Thyroid Disease. Denies: Blood Transfusion Reaction Anesthesia experience/problems:: nac Laterality Cases: Bilateral: Arthroscopy Knee, Total Knee Replacement Other Surgeries: Yes: Cardiac Catheterization. No: Pacemaker Amputation: No Fractures: No - *Social History Educational Level: Completed High School Smoking Status: Former smoker Tobacco Type: cigarettes # Packs/Day (cigarettes): 35 Alcohol Intake: never Substance Use Type: denies use *Occupational Status:: disabled Housing: house Household Members: other *Travel in the last 8 weeks: None - Psychiatric History Pschychiatric History:: Reports:: Anxiety Family Hx:: Asthma, Cancer, Coronary Artery Disease, Diabetes, Heart Attack, Hyperlipidemia, Hypertension
[2020-03-17 10:45] LABS: POC Glucose,Bedside 322 (70-110)
[2020-03-17 11:18] LABS: POC Glucose,Bedside 262 (70-110)
[2020-03-17 11:58] LABS: POC Glucose,Bedside 230 (70-110)
[2020-03-17 12:26] LABS: POC Glucose,Bedside 201 (70-110)
[2020-03-17 13:19] VITALS: BP 142/63; PULSE 73; RESP 18; TEMP 36.3; O2SAT 95
--- NOTE | 2020-03-17 13:20 | P.OP_ITS ---
Date of procedure: 03/17/20 Pre-op Diagnosis:: Degenerative disc disease of the lumbar spine with radiculopathy Post-op Diagnosis:: Same Procedure performed:: Placement of intrathecal pain pump generator Surgeon:: Margarito Rose MD WATER PLANT MAINTENANCE MECHANIC:: Davey Gaston, Viraj Barnes, Med Rich, Dalton Tapia, Other Anesthesia: MAC Estimated blood loss (mL): 5 Operative findings:: Not applicable Operative note:: Patient was placed prone on the operating table and her back and flank region were prepped and draped in sterile fashion. Once adequate IV sedation was obtained via anesthesia and local anesthesia utilizing 1% Xylocaine with epinephrine, a paraspinal incision was made by Dr. fry there which an intrathecal catheter was passed into the intrathecal space to the area desired by Dr. Merrill. Catheter fixed the paraspinal fascia with fixation devices and 2-0 Prolene sutures. A right flank incision was then made under which made a pocket for placement of the reservoir. Catheter passed from the paraspinal incision to the pocket incision utilize a tunneling device. Both pockets irrigated with antibiotic solution. Catheter fixed to the generator which was placed back in the pocket. Generator sutured to the fascia with 2-0 Prolene suture. CSF was aspirated from the generator noting patency of the system. Subcutaneous tissues closed with 2-0 Vicryl and skin closed with stitches of 4-0 nylon. Wound VAC dressings and a binder applied to the wound. The patient taught procedure well and was taken recovery room in stable condition. Upon recovery she will be discharged home with follow-up 1 week for removal of the wound VAC dressings in 2 weeks for removal of the sutures. Antibiotics x1 week per protocol. The patient tolerated the procedure well Condition: stable Disposition: PACU Complications:: None
--- NOTE | 2020-03-17 13:30 | P.OP_ITS ---
Date of procedure: 03/17/20 Pre-op Diagnosis:: Degenerative disc disease of lumbar spine with lumbar radiculopathy symptoms Post-op Diagnosis:: Same Procedure performed:: Intrathecal catheter placement with tunneling for permanent intrathecal pain pump Surgeon:: Adelso Goddard MD ONLINE MEDIA BUYER:: Viraj Barnes Anesthesia: MAC Estimated blood loss (mL): 5 Clinical Note:: This patient is a pleasant 49-year-old white female who we have been treating for low back pain with lumbar radicular symptoms. She has failed all previous conservative therapy including injections, oral medications and she is not a surgical candidate. She is lost over 170 pounds. She is less than 400 pounds. We will plan on permanent placement of her intrathecal pain pump now so she can be more active and continue to lose weight. She has had a successful psychological evaluation. She also had a successful intrathecal pump trial with 80 to 90% relief of her pain symptoms. She is using Alexandria. Her last time abusing Alexandria was on Sunday. She has been off of 48 hours. I told her to stop taking her Alexandria after permanent implantation of her pump. Operative findings:: None Operative note:: Pain pump placement Informed consent was obtained and the risk and benefits of the procedure were explained to the patient. The patient was taken to the operating room. Patient was prepped and draped in sterile fashion. C-arm fluoroscopy was used to view the lumbar spine. The skin and subcutaneous tissues were anesthetized using lidocaine adjacent to the L4-5 and L5-S1 interspace. I made an incision and dissected down to the lumbar paraspinous fascia. A 14-gauge spinal needle was inserted and advanced into the L4-5 interspace until clear CSF was obtained. After this intrathecal catheter was inserted and advanced very easily to the L1 vertebral body. The stylette of the catheter and the needle were withdrawn. We were able to freely withdraw clear CSF through the catheter. The catheter was secured to the fascia with 2 anchoring devices and 2-0 Prolene. I prepared the pump with 20 mL of intrathecal morphine 5 mg/mL while Dr. Rose prepared the pump pocket. I tunneled the catheter from the back to the pump pocket and attached the catheter to the pump. The pump was secured to the fascia with 2-0 Prolene. We were able to freely withdraw clear CSF through the side-port. Both incisions were then closed with 2-0 Vicryl followed by 4-0 nylon. A wound VAC was placed over both incisions. The patient was placed in an abdominal binder. Patient was taken to recovery in stable condition. Patient was given a back brace to help with stability of the spine and also help relieve pain in the low back. Patient tolerated the procedure well with no complications. The pump was interrogated and started at 0.25 mg/day of intrathecal morphine. Patient was discharged home neurologically intact and with good relief of pain symptoms. Plan and disposition: We will follow-up with this patient in 1 week for wound check and reprogramming. We will follow-up in 2 weeks for suture removal. If the patient has any problems or questions they are to call us in the pain clinic. I have talked to the patient about discontinuing her Alexandria. She is to discontinue it starting today since we turned her pump on. We will continue to screen her for this with her urine drug screens. She last received a prescription from Dr. Amador's office earlier this month. Sukhjinder and urine drug screen are all appropriate. Condition: stable Disposition: PACU Complications:: None
[2020-03-17 13:34] VITALS: BP 152/56; PULSE 73; RESP 18; O2SAT 94
[2020-03-17 13:35] LABS: POC Glucose,Bedside 210 (70-110)
[2020-03-17 13:49] VITALS: BP 119/67; PULSE 75; RESP 18; O2SAT 93
[2020-03-17 14:19] VITALS: BP 146/63; PULSE 72; RESP 18; O2SAT 94
[2020-03-17 14:49] VITALS: BP 138/76; PULSE 77; RESP 18; TEMP 36.3; O2SAT 95
== END 2020-03-17 14:49 | disposition home or self-care (01) ==
LOC: OR 09:14
PROVIDERS: PCP Emergency Medicine; Visit Provider Anesthesiology
PROC: (CPT 62350; principal; 2020-03-17 11:00)
DX: M51.16 Intervertebral disc disorders with radiculopathy, lumbar region (principal); I11.0 Hypertensive heart disease with heart failure; E11.9 Type 2 diabetes mellitus without complications; E66.9 Obesity, unspecified; Z68.44 Body mass index [BMI] 60.0-69.9, adult; F41.9 Anxiety disorder, unspecified; I50.9 Heart failure, unspecified; J44.9 Chronic obstructive pulmonary disease, unspecified; E78.5 Hyperlipidemia, unspecified; E03.9 Hypothyroidism, unspecified; M19.90 Unspecified osteoarthritis, unspecified site; Z86.711 Personal history of pulmonary embolism
CPT/HCPCS: 62350; 62362; 82962; 84703; 96374; C1755; C1772; J3370

== ENCOUNTER → 2020-03-22 09:05 | Outpatient (POV) | payer MEDICARE, OTHER, SELFPAY ==
[2020-03-22 09:32] VITALS: BP 185/89; PULSE 98; RESP 18; BMI 63.4
--- NOTE | 2020-03-22 10:05 | HMH.PAINSOAP ---
[facility] Pain Management SOAP Note Subjective:: Patient is a very pleasant 49-year-old white female who presents today for follow-up. Patient had intrathecal pain pump implanted 5 days ago. She is done well however she is having quite a bit of incisional pain. We will remove her wound VAC today. Patient is currently on morphine 0.25 mg/day. She denies any side effects to this medication. She rates her pain at 8 out of 10 ROS General: no recent weight change, no fever, no sleep disturbances Respiratory: no cough, no shortness of air, no recurring pulmonary infections Cardiovascular/Peripheral Vascular: No chest pain, No palpitations, no edema, no shortness of breath. Gastrointestinal: no new onset incontinence, normal bowel movements reported Genitourinary: no new onset incontinence Musculoskeletal: Back pain, leg pain Psychiatric: normal mood/ affect Neurological: [denies new onset weakness in extremities], [denies new onset balance issues] Objective:: Physical Exam General: Alert and oriented x3, no acute distress, pleasant and cooperative, [on room air] Lungs: Resps E/U, Symmetrical chest expansion, Eyes: PERRL Musculoskeletal: Flexion and extension of lumbar spine somewhat guarded secondary to pain, deep tendon reflexes normal, strength in upper and lower extremities [5/5], [abnormal gait noted] Neurological: speech clear, eyedotter equal, no gross sensory deficits Assessment:: Degenerative disc disease lumbar spine lumbar radiculopathy Plan:: Wound VAC was removed incisional site well approximated stitches in place no sign symptoms of infection. Patient's going to continue her antibiotics till they are finished. I will see her back in 2 weeks for stitch removal. She has been instructed to call the office if she has any issues prior to her next appointment. Dr. Goddard has reviewed this note and agrees with this plan of care. This note was dictated using voice recognition software and may contain errors or omissions [facility] History I have reviewed the patient's past medical history: Yes Medical History: Reports:: Anxiety, Congestive Heart Failure, Chronic Obstructive Pulmonary Disease (COPD), Diabetes Mellitus Type 2, Gastroesophageal Reflux Disease(GERD), Hyperlipidemia, Hypertension, Migraine Denies:: Cancer, Diabetes Mellitus Type 1, Internal Pacemaker, MRSA, Seizures *Have you ever received a pneumonia vaccine?: Yes *Have you received a flu vaccine this season?: Yes Other Medical History: Reports: Anemia, Arthritis, Hypothyroidism, Thyroid Disease. Denies: Blood Transfusion Reaction Laterality Cases: Bilateral: Arthroscopy Knee Other Surgeries: Yes: Cardiac Catheterization. No: Pacemaker Amputation: No Fractures: No - *Social History Smoking Status: Former smoker Tobacco Type: cigarettes # Packs/Day (cigarettes): 35 Alcohol Intake: never Substance Use Type: denies use *Occupational Status:: other Housing: house Household Members: other *Travel in the last 8 weeks: None - Psychiatric History Pschychiatric History:: Reports:: Anxiety Family Hx:: Asthma, Cancer, Coronary Artery Disease, Diabetes, Heart Attack, Hyperlipidemia, Hypertension
== END ==
PROVIDERS: PCP Emergency Medicine; Visit Provider Clinical Nurse Specialist Family Health
DX: M51.16 Intervertebral disc disorders with radiculopathy, lumbar region (principal)
CPT/HCPCS: 62368; 99212

== ENCOUNTER → 2020-04-01 11:41 | Outpatient (POV) | payer MEDICARE, OTHER, SELFPAY ==
[2020-04-01 11:57] VITALS: BP 193/62; PULSE 82; RESP 18; TEMP 36.6; O2SAT 98; BMI 63.4
--- NOTE | 2020-04-01 12:25 | HMH.PMPROC ---
- Procedure Date: 04/01/20 Time: 12:25 Anesthesiologist:: Linn Sharp APRN Complications:: None Pre-procedure Diagnosis:: Indurative disc disease lumbar spine with lumbar radiculopathy symptoms left sacroiliitis Post-procedure Diagnosis:: Same Indications for Procedure:: Patient is a pleasant 49-year-old white female who presents today for complaints of left low back pain. She recently underwent an intrathecal pain pump implant. She is being treated for low back pain with lumbar radiculopathy symptoms. She says she is noticing a difference in her pain in her right low back area, however, she is having some pain in her left low back area at this time. She does rate her pain an 8 out of 10. She says that the pain is worse with walking and standing. She has notable point tenderness over her left SI joint. She would like an increase in her medication today and would like to schedule an injection for her left low back area. Patient is currently on morphine at 0.25 mg/day. Her Sukhjinder #[id number] has been reviewed and is appropriate. Patient did call the clinic last week and was given tramadol for her pain. Patient is on her urine drug screens and her morphine equivalent is 30. Physical exam General: Alert and oriented x3, no acute distress, pleasant and cooperative, [on room air] Lungs: Respirations even and unlabored, symmetrical chest expansion Eyes: PERRL Musculoskeletal: Flexion and extension of lumbar spine somewhat guarded secondary to pain, deep tendon reflexes normal, strength in upper and lower extremities [5/5], [abnormal gait noted] Neurological: Speech clear, orthopedic physician assistant equal, no gross sensory deficit Integumentary: Incision is well approximated, no redness, no drainage, no edema noted to the site. Sutures intact Procedure Details:: Informed consent was obtained and the risk and benefits of the procedure were explained to the patient. Patient was taken to the procedure room where noninvasive monitoring was placed including noninvasive blood pressure cuff and pulse oximeter. Patient's pump was interrogated and was reprogrammed to increase to morphine at 0.35 mg/day. The patient tolerated the procedure well with no complications. Plan and Disposition:: We will schedule the patient for a left SI joint injection. She has notable point tenderness over the left SI joint. She has a positive Shira, Izaiah's, distraction test. We will plan to remove her sutures on Sunday this upcoming week as well. We will follow-up with her on her pain that time as well. Patient has been instructed to contact the clinic if she has any concerns before her next appointment. The patient and I specifically discussed risk factors for COVID19. These risks include, but are not limited to age greater than 60, heart or lung disease, diabetes, immunosuppression, and travel. We also discussed NSAIDs may worsen COVID19 infection or symptoms. Patient should not use NSAIDs to treat COVID19 signs or symptoms. Patient was also informed that any type of corticosteroid of any form (oral or injection) will decrease the patient's immune system response and may increase the likelihood of COVID19 infection [address] Goddard has reviewed this note and agrees with this plan of care. This note was dictated using voice recognition software and make contain errors or omissions.
== END ==
PROVIDERS: PCP Emergency Medicine; Visit Provider Clinical Nurse Specialist Family Health
DX: M51.16 Intervertebral disc disorders with radiculopathy, lumbar region (principal); M46.1 Sacroiliitis, not elsewhere classified
CPT/HCPCS: 62368; 99212

== ENCOUNTER → 2020-04-05 11:19 | Outpatient (POV) | payer MEDICARE, OTHER, SELFPAY ==
[2020-04-05 11:44] VITALS: BP 142/85; PULSE 85; RESP 18; O2SAT 99; BMI 63.4
--- NOTE | 2020-04-05 12:47 | HMH.PMPROC ---
- Procedure Date: 04/05/20 Time: 11:50 Anesthesiologist:: Vee Lilly APRN Complications:: None Pre-procedure Diagnosis:: Degenerative f disc disease lumbar spine lumbar radiculopathy Post-procedure Diagnosis:: Same Indications for Procedure:: This is a pleasant 49-year-old white female presents today for follow-up stitch removal of her intrathecal pain pump. Patient still having significant pain rating it a 7 out of 10. Patient stitches are removed no sign symptoms of infection. Patient was given a 0.25 mg morphine bolus. Patient did not get any relief with this. Patient will be increased today and her PTC will be set up. If she does not feel any relief in her pain we will discuss changing her medications. Physical Exam General: Alert and oriented x3, no acute distress, pleasant and cooperative, [on room air] Lungs: Resps E/U, Symmetrical chest expansion, Eyes: PERRL Musculoskeletal: Flexion and extension of lumbar spine somewhat guarded secondary to pain, deep tendon reflexes normal, strength in upper and lower extremities [5/5], [abnormal gait noted] Neurological: speech clear, video technician equal, no gross sensory deficits Procedure Details:: Informed consent was obtained and the risk and benefits of the procedure were explained to the patient. The patient was taken to the procedure room where noninvasive monitoring was placed including noninvasive blood pressure cuff and pulse oximeter. Patient's pump was interrogated and reprogrammed. The infusion rate was increased to 0.5 mg/day of morphine and her PTC was set up at 0.05 mg per activation. The patient tolerated the procedure well. Plan and Disposition:: We did discuss starting her on Dilaudid if she does not get any relief in regards to this medication. Patient is going to call our office to tell us if she is gotten any relief. If not we will see her in 1 week reassess her symptoms at that time she is been instructed to call the office if she has any issues. If we do switch her to Dilaudid we will switch her to Dilaudid 5 mg/mL and start her out at 0.1 mg/day. Dr. Goddard has reviewed this note and agrees with this plan of care. This note was dictated using voice recognition software and may contain errors or omissions
== END ==
PROVIDERS: PCP Emergency Medicine; Visit Provider Clinical Nurse Specialist Family Health
DX: M51.16 Intervertebral disc disorders with radiculopathy, lumbar region (principal)
CPT/HCPCS: 62368; 99212

== ENCOUNTER 2020-04-12 13:39 | Day surgery (SDC) | payer MEDICARE, OTHER, SELFPAY ==
[2020-04-12 13:50] VITALS: BP 175/94; BP 178/86; PULSE 68; PULSE 77; RESP 20; RESP 22; TEMP 36.3; O2SAT 99; BMI 63.4
[2020-04-12 13:58] VITALS: BP 142/88; PULSE 85; RESP 18; O2SAT 98
--- NOTE | 2020-04-12 13:58 | HMH.PMPROC ---
- Procedure Date: 04/12/20 Time: 13:58 Anesthesiologist:: Vee Lilly APRN Complications:: None Pre-procedure Diagnosis:: Sacroiliitis Post-procedure Diagnosis:: Same Indications for Procedure:: Patient is a pleasant 49-year-old white female who presents today for left SI joint injection. Patient is rating her pain a 7 out of 10. She does have an intrathecal pain pump however most of her pain is at her left SI joint she has a positive Shira test SI joint compression test and positive Izaiah's test on the left side. We will move forward with a left SI joint injection today. Physical Exam General: Alert and oriented x3, no acute distress, pleasant and cooperative, [on room air] Lungs: Resps E/U, Symmetrical chest expansion, Eyes: PERRL Musculoskeletal: Flexion and extension of lumbar spine somewhat guarded secondary to pain, deep tendon reflexes normal, strength in upper and lower extremities [5/5], [abnormal gait noted] Neurological: speech clear, advanced solutions architect equal, no gross sensory deficits Procedure Details:: Informed consent was obtained and the risks and benefits of the procedure were explained to the patient. Patient was taken to the procedure room. Patient was placed prone on the procedure table. The left hip was prepped using ChloraPrep as a cleansing solution. The skin and subcutaneous tissues were anesthetized using lidocaine. Using fluoroscopic guidance I placed a 22-gauge spinal needle into the inferior aspect of the left SI joint. After this I injected 5 mL bupivacaine 0.25% and Depo-Medrol 40 mg into the left SI joint. The patient tolerated the procedure well with no complication. Plan and Disposition:: Patient had intrathecal pain pump placed several weeks ago. Patient has a small separation in her lower her incision. Redness noted. Patient has not had any fevers no symptomology of infection. Patient was given information in regards to what to look for if she does have any issues. We will put her on Bactrim DS 1 p.o. twice daily for 10 days. I will follow-up with her in 1 week reassess her at that time. Dr. Goddard has reviewed this note and agrees with this plan of care. This note was dictated using voice recognition software and may contain errors or omissions
[2020-04-12 14:02] VITALS: BP 135/85; PULSE 89; RESP 18; O2SAT 99
== END 2020-04-12 14:25 | disposition home or self-care (01) ==
LOC: SC.PAINP 13:41
PROVIDERS: PCP Emergency Medicine; Visit Provider Clinical Nurse Specialist Family Health
DX: M46.1 Sacroiliitis, not elsewhere classified (principal); I10 Essential (primary) hypertension; J44.9 Chronic obstructive pulmonary disease, unspecified; K21.9 Gastro-esophageal reflux disease without esophagitis; I26.99 Other pulmonary embolism without acute cor pulmonale; Z99.81 Dependence on supplemental oxygen; F32.9 Major depressive disorder, single episode, unspecified; Z96.89 Presence of other specified functional implants; Z87.39 Personal history of other diseases of the musculoskeletal system and connective tissue; E11.9 Type 2 diabetes mellitus without complications; F41.9 Anxiety disorder, unspecified; Z88.8 Allergy status to other drugs, medicaments and biological substances
CPT/HCPCS: 27096; G0260; J1040

== ENCOUNTER → 2020-04-16 13:14 | Outpatient (POV) | payer MEDICARE, OTHER, SELFPAY ==
--- NOTE | 2020-04-16 13:56 | HMH.PMPROC ---
- Procedure Date: 04/16/20 Time: 13:56 Anesthesiologist:: Adelso Goddard MD Complications:: None Pre-procedure Diagnosis:: Increasing low back pain bilateral hip pain and bilateral shoulder pain. Degenerative disc disease of lumbar spine with lumbar radiculopathy symptoms Post-procedure Diagnosis:: Same Indications for Procedure:: This patient is a pleasant 49-year-old white female who we are treating for low back pain with bilateral hip pain and bilateral shoulder pain. An intrathecal morphine pain pump in place currently going 0.5 mg/day. She is doing well with her pump. She does have still some residual back pain increasing bilateral hip pain and bilateral shoulder pain. She did well with tramadol in the past. We will refill her tramadol 50 mg 1 tablet 3 times a day. Her Sukhjinder and urine drug screen are all appropriate Sukhjinder [id number]. We will also increase her intrathecal morphine pain pump to 0.75 mg/day. Procedure Details:: Analysis and reprogramming of intrathecal morphine pain pump Informed consent was obtained risk and benefits of the procedure were explained to the patient. Patient was taken to the procedure room. The pain pump was interrogated. Intrathecal morphine infusion was increased to 0.75 mg/day. Patient tolerated the procedure well with no complications. Plan and Disposition:: We will follow-up with her in 2 weeks. Will reevaluate symptoms at that time.
[2020-04-16 14:00] VITALS: BP 151/66; PULSE 72; RESP 20; TEMP 36.4; O2SAT 98; BMI 63.7
== END ==
PROVIDERS: PCP Emergency Medicine; Visit Provider Anesthesiology
DX: M51.16 Intervertebral disc disorders with radiculopathy, lumbar region (principal); M25.511 Pain in right shoulder; M25.512 Pain in left shoulder; E11.9 Type 2 diabetes mellitus without complications; E66.9 Obesity, unspecified; E55.9 Vitamin D deficiency, unspecified; K21.9 Gastro-esophageal reflux disease without esophagitis; F41.9 Anxiety disorder, unspecified; F32.9 Major depressive disorder, single episode, unspecified; I10 Essential (primary) hypertension; Z68.44 Body mass index [BMI] 60.0-69.9, adult; Z87.39 Personal history of other diseases of the musculoskeletal system and connective tissue
CPT/HCPCS: 62368

== ENCOUNTER → 2020-04-22 09:04 | Outpatient (POV) | payer MEDICARE, OTHER, SELFPAY ==
[2020-04-22 09:22] VITALS: BP 156/85; PULSE 71; RESP 18; O2SAT 98; BMI 63.4
--- NOTE | 2020-04-22 09:40 | P.PCN_ITS ---
- Procedure Date: 04/22/20 Time: 09:40 Anesthesiologist:: Linn Sharp APRN Complications:: None Pre-procedure Diagnosis:: Degenerative disc disease lumbar spine with lumbar radiculopathy symptoms Post-procedure Diagnosis:: Same Indications for Procedure:: Patient is a 49-year-old morbidly obese white female who presents today for follow-up. She is being treated for low back pain with lumbar radiculopathy symptoms. She also recently underwent bilateral SI joint injections. Patient says she did not get much relief with the injections. She does say, however, today her pain is in her bilateral shoulders. She rates her pain a 6 out of 10. She would like to undergo bilateral intra-articular shoulder injections. Patient is currently on morphine intrathecal therapy at 0.75 mg/day. She denies any side effects to the medication. He would like an increase and would like to discuss possible periodic flow. She and I did discuss this at a previous visit she would like to try this to see if it does help with her neck pain. Her Sukhjinder #[id number] has been reviewed and is appropriate. Her urine drug screens have been appropriate. Her morphine equivalent is 15. Physical exam General: Alert and oriented x3, no acute distress, pleasant and cooperative, [on room air] Lungs: Respirations even and unlabored, symmetrical chest expansion Eyes: PERRL Musculoskeletal: Flexion and extension of her vocal and lumbar spine somewhat guarded secondary to pain, deep tendon reflexes normal, strength in upper and lower extremities [5/5], [abnormal gait noted] Neurological: Speech clear, metal or wood blocker equal, no gross sensory deficit Procedure Details:: Informed consent was obtained and the risk and benefits of the procedure were explained to the patient. Patient was taken to the procedure room where noninvasive monitoring was placed including noninvasive blood pressure cuff and pulse oximeter. Patient's pump was interrogated and was reprogrammed to periodic flow at 0.075 mg every 2 hours. The patient tolerated the procedure well with no complications. Plan and Disposition:: We will schedule the patient for bilateral intra-articular shoulder injections. She is having some pain to bilateral shoulders and says she is unable to raise her arms at this time. Patient is interested in intrathecal home refill. She does have a friend that is getting home refills. She says that she would like to pursue this when she can. We will check with her insurance to see if this is possible. The patient's incision that was slightly open to her vertical incision at her last visit is healing without any redness, drainage, or edema. We will see her back in the clinic after her injections to reassess her symptoms. She has been instructed to contact clinic if she has any concerns before next appointment. The patient and I specifically discussed risk factors for COVID19. These risks include, but are not limited to age greater than 60, heart or lung disease, diabetes, immunosuppression, and travel. We also discussed NSAIDs may worsen COVID19 infection or symptoms. Patient should not use NSAIDs to treat COVID19 signs or symptoms. Patient was also informed that any type of corticosteroid of any form (oral or injection) will decrease the patient's immune system response and may increase the likelihood of COVID19 [address] Goddard has reviewed this note and agrees with this plan of care. This note was dictated using voice recognition software and make contain errors or omissions.
== END ==
PROVIDERS: PCP Emergency Medicine; Visit Provider Clinical Nurse Specialist Family Health
DX: M51.16 Intervertebral disc disorders with radiculopathy, lumbar region (principal)
CPT/HCPCS: 99212

== ENCOUNTER → 2020-05-03 13:52 | Outpatient (POV) | payer MEDICARE, OTHER, SELFPAY ==
[2020-05-03 14:15] VITALS: BP 142/79; PULSE 89; RESP 18; TEMP 36.6; O2SAT 99; BMI 63.4
--- NOTE | 2020-05-10 08:32 | P.PCN_ITS ---
- Procedure Date: 05/03/20 Time: 11:45 Anesthesiologist:: Vee Lilly APRN Complications:: None Pre-procedure Diagnosis:: Degenerative disc disease lumbar spine lumbar radiculopathy Post-procedure Diagnosis:: Same Indications for Procedure:: Patient is a pleasant 50-year-old white female who presents today for intrathecal pain pump adjustment. Patient rates her pain 8 out of 10. She was given a one-time bolus that was not very beneficial. Patient and I have discussed changing her medication from morphine to Dilaudid and she would like to move forward with this. Physical Exam General: Alert and oriented x3, no acute distress, pleasant and cooperative, [on room air] Lungs: Resps E/U, Symmetrical chest expansion, Eyes: PERRL Musculoskeletal: Flexion and extension of lumbar spine somewhat guarded secondary to pain, deep tendon reflexes normal, strength in upper and lower extremities [5/5], [abnormal gait noted] Neurological: speech clear, flight information expediter equal, no gross sensory deficits Procedure Details:: Informed consent was obtained and the risk and benefits of the procedure were explained to the patient. The patient was taken to the procedure room where noninvasive monitoring was placed including noninvasive blood pressure cuff and pulse oximeter. Patient's pump was interrogated and reprogrammed. The infusion rate was increased to 1.2 mg a day morphine. The patient tolerated the procedure well. Plan and Disposition:: We will start the patient on Dilaudid 5 mg/mL at her next intrathecal pain pump refill and reprogram we will start her at 0.1 mg/day. She has been instructed to call the office if she has any issues prior to her next appointment. Dr. Goddard has reviewed this note and agrees with this plan of care. This note was dictated using voice recognition software and may contain errors or omissions
== END ==
PROVIDERS: PCP Emergency Medicine; Visit Provider Clinical Nurse Specialist Family Health
DX: M51.16 Intervertebral disc disorders with radiculopathy, lumbar region (principal)
CPT/HCPCS: 62368; 99212

== ENCOUNTER 2020-05-10 15:36 | Day surgery (SDC) | payer MEDICARE, OTHER, SELFPAY ==
[2020-05-10 15:44] VITALS: BP 165/74; PULSE 71; RESP 18; TEMP 36.3; O2SAT 98; BMI 63.4
[2020-05-10 16:07] VITALS: BP 135/88; PULSE 88; RESP 18
[2020-05-10 16:08] VITALS: BP 132/88; BP 140/78; PULSE 88; RESP 20; O2SAT 98
[2020-05-10 16:30] VITALS: BP 163/78; PULSE 72; RESP 20; O2SAT 96
--- NOTE | 2020-05-10 16:32 | HMH.PMPROC ---
- Procedure Date: 05/10/20 Time: 16:32 Anesthesiologist:: Vee Lilly APRN Complications:: None Pre-procedure Diagnosis:: Degenerative disc disease lumbar spine lumbar radiculopathy Post-procedure Diagnosis:: Same Indications for Procedure:: Patient is a pleasant 50-year-old white female presents today for intrathecal pain pump refill and reprogram. Patient is not doing well on her morphine will be switching her to Dilaudid today. Patient rates her pain today 6 out of 10. She is currently on a morphine infusion of 1.2 mg/day. We will be switching her to Dilaudid and will start her up 0.2 mg/day. Physical Exam General: Alert and oriented x3, no acute distress, pleasant and cooperative, [on room air] Lungs: Resps E/U, Symmetrical chest expansion, Eyes: PERRL Musculoskeletal: Flexion and extension of lumbar spine somewhat guarded secondary to pain, deep tendon reflexes normal, strength in upper and lower extremities [5/5], [abnormal gait noted] Neurological: speech clear, stockbroker equal, no gross sensory deficits Procedure Details:: Informed consent was obtained and the risk and benefits of the procedure were explained to the patient. The patient was taken to the procedure room where noninvasive monitoring was placed including noninvasive blood pressure cuff and pulse oximeter. Patient's pump was interrogated. The area over the pump was cleansed with chlorhexidine as a cleansing solution. In sterile fashion the pump was accessed with a 22-gauge needle. Approximately 8 mL's were removed of the pump solution and discarded appropriately. The pump was then refilled with 20 mL's of Dilaudid 5 mg/mL. The needle was withdrawn and a bandage was placed over the puncture site. The infusion rate was reprogrammed to begin at 0.2 mg/day. The patient tolerated the procedure well. Plan and Disposition:: We will follow-up with the patient 1 week reassess her symptoms at that time. She has been instructed to call the office if she has any issues prior to her next appointment. Dr. Goddard has reviewed this note and agrees with this plan of care. This note was dictated using voice recognition software and may contain errors or omissions
== END 2020-05-10 16:30 | disposition home or self-care (01) ==
LOC: SC.PAINP 15:37
PROVIDERS: PCP Emergency Medicine; Visit Provider Clinical Nurse Specialist Family Health
DX: M51.16 Intervertebral disc disorders with radiculopathy, lumbar region (principal); I25.10 Atherosclerotic heart disease of native coronary artery without angina pectoris; E78.5 Hyperlipidemia, unspecified; I10 Essential (primary) hypertension; J44.9 Chronic obstructive pulmonary disease, unspecified; Z99.81 Dependence on supplemental oxygen; I26.99 Other pulmonary embolism without acute cor pulmonale; K21.9 Gastro-esophageal reflux disease without esophagitis; F31.9 Bipolar disorder, unspecified; E03.9 Hypothyroidism, unspecified; Z88.1 Allergy status to other antibiotic agents; Z88.8 Allergy status to other drugs, medicaments and biological substances
CPT/HCPCS: 62370

== ENCOUNTER → 2020-05-17 09:29 | Outpatient (POV) | payer MEDICARE, OTHER, SELFPAY ==
[2020-05-17 09:55] VITALS: BP 142/88; PULSE 85; RESP 18; TEMP 36.8; O2SAT 99; BMI 63.4
--- NOTE | 2020-05-17 11:35 | HMH.PMPROC ---
- Procedure Date: 05/17/20 Time: 11:35 Anesthesiologist:: Vee Lilly APRN Complications:: None Pre-procedure Diagnosis:: Degenerative disc disease lumbar spine lumbar radiculopathy Post-procedure Diagnosis:: Same Indications for Procedure:: Patient is a pleasant 50-year-old white female who presents today for intrathecal pain pump reprogram. She was switched from morphine to Dilaudid. She is doing well denies side effects she rates her pain a 6 out of 10. She is currently 0.2 mg/day. She is here for increase and to set up her PTC. She still having shoulder pain. She is to be seen by a chiropractor to see if this is beneficial. If not we will move forward with getting a consultation in regards to her right shoulder pain. Physical Exam General: Alert and oriented x3, no acute distress, pleasant and cooperative, [on room air] Lungs: Resps E/U, Symmetrical chest expansion, Eyes: PERRL Musculoskeletal: Flexion and extension of lumbar spine somewhat guarded secondary to pain, deep tendon reflexes normal, strength in upper and lower extremities [5/5], [abnormal gait noted] Neurological: speech clear, pipe smoking machine offbearer equal, no gross sensory deficits Procedure Details:: Informed consent was obtained and the risk and benefits of the procedure were explained to the patient. The patient was taken to the procedure room where noninvasive monitoring was placed including noninvasive blood pressure cuff and pulse oximeter. Patient's pump was interrogated and reprogrammed. The infusion rate was increased to 0.4 mg of Dilaudid today and her PTC was started at 0.04 mg up to 4 times a day.. The patient tolerated the procedure well. Plan and Disposition:: We will follow-up with the patient at her next intrathecal pain pump refill and reprogram. Patient's been instructed to call the office if she has any issues prior to her next appointment. Dr. Goddard has reviewed this note and agrees with this plan of care. This note was dictated using voice recognition software and may contain errors or omissions note your absolutely right
== END ==
PROVIDERS: PCP Emergency Medicine; Visit Provider Clinical Nurse Specialist Family Health
DX: M51.16 Intervertebral disc disorders with radiculopathy, lumbar region (principal); E55.9 Vitamin D deficiency, unspecified; G43.909 Migraine, unspecified, not intractable, without status migrainosus; E66.01 Morbid (severe) obesity due to excess calories; I20.8 Other forms of angina pectoris; E11.8 Type 2 diabetes mellitus with unspecified complications; G62.9 Polyneuropathy, unspecified; F41.9 Anxiety disorder, unspecified; F32.9 Major depressive disorder, single episode, unspecified; E03.9 Hypothyroidism, unspecified; I10 Essential (primary) hypertension; Z68.44 Body mass index [BMI] 60.0-69.9, adult
CPT/HCPCS: 62368

== ENCOUNTER → 2020-05-27 14:02 | Outpatient (POV) | payer MEDICARE, OTHER, SELFPAY ==
[2020-05-27 14:18] VITALS: BP 142/75; PULSE 85; RESP 18; O2SAT 98; BMI 63.1
--- NOTE | 2020-05-27 14:41 | P.PCN_ITS ---
- Procedure Date: 05/27/20 Time: 14:41 Anesthesiologist:: Vee Lilly APRN Complications:: None Pre-procedure Diagnosis:: Degenerative disc disease lumbar spine with lumbar radiculopathy Post-procedure Diagnosis:: Same Indications for Procedure:: Patient's 50-year-old white female who presents today for intrathecal pain pump adjustment. Patient is doing well on her Dilaudid infusion of 0.4 mg/day. She denies any side effects from medication. She would like to have a slight increase today. Patient's Sukhjinder #[id number] reviewed and appropriate. Urine drug screens have been appropriate. Physical Exam General: Alert and oriented x3, no acute distress, pleasant and cooperative, [on room air] Lungs: Resps E/U, Symmetrical chest expansion, Eyes: PERRL Musculoskeletal: Flexion and extension of lumbar spine somewhat guarded secondary to pain, deep tendon reflexes normal, strength in upper and lower extremities [5/5], [abnormal gait noted] Neurological: speech clear, back hoe machine operator equal, no gross sensory deficits Procedure Details:: Informed consent was obtained and the risk and benefits of the procedure were explained to the patient. The patient was taken to the procedure room where noninvasive monitoring was placed including noninvasive blood pressure cuff and pulse oximeter. Patient's pump was interrogated and reprogrammed. The infusion rate was increased to 0.55 mg/day of Dilaudid. The patient tolerated the procedure well. Plan and Disposition:: We will see the patient back at her next intrathecal pain pump refill and reprogram she has been instructed to call the office if she has any issues prior to her next appointment. Dr. Goddard has reviewed this note and agrees with this plan of care. This note was dictated using voice recognition software and may contain errors or omissions
== END ==
PROVIDERS: Visit Provider Clinical Nurse Specialist Family Health
DX: M51.16 Intervertebral disc disorders with radiculopathy, lumbar region (principal); I10 Essential (primary) hypertension; E11.69 Type 2 diabetes mellitus with other specified complication; I20.8 Other forms of angina pectoris; K21.9 Gastro-esophageal reflux disease without esophagitis; F41.9 Anxiety disorder, unspecified; F32.9 Major depressive disorder, single episode, unspecified; E03.9 Hypothyroidism, unspecified; G43.909 Migraine, unspecified, not intractable, without status migrainosus; E66.01 Morbid (severe) obesity due to excess calories; Z68.44 Body mass index [BMI] 60.0-69.9, adult
CPT/HCPCS: 62368

== ENCOUNTER → 2020-05-31 10:11 | Outpatient (CLI) | payer MEDICARE, OTHER, SELFPAY ==
--- NOTE | 2020-05-31 10:17 | XR_ITS ---
PROCEDURE: XR SHOULDER LT MIN 2V CLINICAL INDICATION: BL shoulder pain COMPARISON: CR SHOULDCMRT XR shoulder RT min 2V from 10/09/2018 FINDINGS: There are moderate osteoarthritic changes of the left shoulder at the glenohumeral joint with osteophyte formation along the neck of the humerus loss of joint space and subacromial stenosis. No fracture or dislocation. No lytic or blastic change. Other findings:None. 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
--- NOTE | 2020-05-31 10:17 | XR_ITS ---
PROCEDURE: XR SHOULDER RT MIN 2V CLINICAL INDICATION: bilateral shoulder pain COMPARISON: CR SHOULDCMRT XR shoulder RT min 2V from 10/09/2018 FINDINGS: No fracture or dislocation. No lytic or blastic change. There is normal mineralization. There are moderate osteoarthritic changes of the glenohumeral joint with osteophyte formation along the neck of the humerus medially and decrease in the glenohumeral joint space.. Other findings:There is mild subacromial stenosis IMPRESSION: Moderate osteoarthritic changes of the right shoulder not significantly changed Dictated by: Manish Fall MD 05/31/2020 11:29 Manish Fall MD in [place] 05/31/2020 11:29
== END ==
PROVIDERS: PCP Emergency Medicine; Visit Provider Orthopaedic Surgery
DX: M25.511 Pain in right shoulder; M25.512 Pain in left shoulder
CPT/HCPCS: 73030

== ENCOUNTER → 2020-06-21 08:01 | Outpatient (POV) | payer MEDICARE, OTHER, SELFPAY ==
[2020-06-21 08:26] VITALS: BP 140/72; PULSE 77; RESP 18; O2SAT 98; BMI 63.1
--- NOTE | 2020-06-21 08:55 | HMH.PAINSOAP ---
[facility] Pain Management SOAP Note Subjective:: Patient is a 50-year-old white female who presents today for follow-up. Patient does have an intrathecal pain pump. Patient stated her last increase did not help her back pain. She is having left-sided facet agenic pain. Patient has pain with rotation. Patient and I had a long discussion about continuing to lose weight I do believe that this is part of the issue and why she is having this pain. Patient is unsure if she is lost any weight since her implant. I encouraged her to see her primary care physician and follow-up with this. I would expect to see her have another decrease in weight by 70-100 pounds. Patient's pain is very focal. She has no radiation ROS General: no recent weight change, no fever, no sleep disturbances Respiratory: no cough, no shortness of air, no recurring pulmonary infections Cardiovascular/Peripheral Vascular: No chest pain, No palpitations, no edema, no shortness of breath. Gastrointestinal: no new onset incontinence, normal bowel movements reported Genitourinary: no new onset incontinence Musculoskeletal: Back pain Psychiatric: normal mood/ affect Neurological: [denies new onset weakness in extremities], [denies new onset balance issues] Objective:: Physical Exam General: Alert and oriented x3, no acute distress, pleasant and cooperative, morbidly obese Lungs: Resps E/U, Symmetrical chest expansion, Eyes: PERRL Musculoskeletal: Flexion and extension of lumbar spine somewhat guarded secondary to pain, deep tendon reflexes normal, strength in upper and lower extremities [5/5], [abnormal gait noted] Neurological: speech clear, design engineering manager equal, no gross sensory deficits Assessment:: Degenerative disc disease lumbar spine lumbar radiculopathy lumbar facet arthropathy Plan:: We will schedule the patient for an L4-L5 L5-S1 bilateral medial branch block. She is not on any anticoagulation therapy. I do not believe increasing her intrathecal dose at this time would make any difference in regards the pain since she has not had any relief in the past with increases in regards to this focal back pain. I do again believe it is mainly weight related. I encouraged her to continue to lose weight. Dr. Goddard has reviewed this note and agrees with this plan of care. This note was dictated using voice recognition software and may contain errors or omissions [facility] History I have reviewed the patient's past medical history: Yes Medical History: Reports:: Anxiety, Congestive Heart Failure, Chronic Obstructive Pulmonary Disease (COPD), Coronary Artery Disease, Diabetes Mellitus Type 2, Gastroesophageal Reflux Disease(GERD), Hyperlipidemia, Hypertension, Migraine Denies:: Cancer, Diabetes Mellitus Type 1, Internal Pacemaker, MRSA, Seizures *Have you ever received a pneumonia vaccine?: Yes *Have you received a flu vaccine this season?: Yes Other Medical History: Reports: Anemia, Arthritis, Hypothyroidism, Thyroid Disease. Denies: Blood Transfusion Reaction Laterality Cases: Bilateral: Arthroscopy Knee Other Surgeries: Yes: Cardiac Catheterization, Other (pain pump implant). No: Pacemaker Amputation: No Fractures: No - *Social History Smoking Status: Former smoker Tobacco Type: cigarettes # Packs/Day (cigarettes): 35 Alcohol Intake: never Substance Use Type: denies use *Occupational Status:: other Housing: house Household Members: other *Travel in the last 8 weeks: None - Psychiatric History Pschychiatric History:: Reports:: Anxiety Family Hx:: Asthma, Cancer, Coronary Artery Disease, Diabetes, Heart Attack, Hyperlipidemia, Hypertension
== END ==
PROVIDERS: PCP Emergency Medicine; Visit Provider Clinical Nurse Specialist Family Health
DX: M51.16 Intervertebral disc disorders with radiculopathy, lumbar region (principal); M12.88 Other specific arthropathies, not elsewhere classified, other specified site; E11.9 Type 2 diabetes mellitus without complications; I11.0 Hypertensive heart disease with heart failure; E78.5 Hyperlipidemia, unspecified; J44.9 Chronic obstructive pulmonary disease, unspecified; I50.9 Heart failure, unspecified; K21.9 Gastro-esophageal reflux disease without esophagitis; F41.9 Anxiety disorder, unspecified; D64.9 Anemia, unspecified; M19.90 Unspecified osteoarthritis, unspecified site; E03.9 Hypothyroidism, unspecified
CPT/HCPCS: 62368

== ENCOUNTER → 2020-10-08 08:47 | Outpatient (CLI) | payer MEDICARE, OTHER, SELFPAY ==
[2020-10-08 09:23] LABS: Basophils # 0.1 K/mm3 (0-0.2); Basophils % 0.5 % (0.1-2.0); Eosinophils # 0.2 K/mm3 (0.0-0.4); Eosinophils % 2.5 % (0.1-12.0); Hematocrit 46.2 % (37.0-47.0); Hemoglobin 15.1 g/dL (12.2-16.2); Lymphocytes # 2.1 K/mm3 (0.7-4.5); Lymphocytes % 23.1 % (10-50); Mean Corpuscular HGB Conc 32.8 g/dL (31.8-35.4); Mean Corpuscular Hemoglobin 28.5 pg (27.0-31.2); Mean Platelet Volume 8.3 fl (7.4-10.4); Monocytes # 0.5 K/mm3 (0.1-1.0); Monocytes % 5.2 % (1.7-9.3); Neutrophils # 6.2 K/mm3 (1.8-7.8); Neutrophils % 68.7 % (37.0-80.0); Platelet Count 268 K/mm3 (142-424); Red Blood Count 5.31 M/mm3 (4.20-5.40); Red Cell Distribution Width 13.8 % (11.5-17.5); White Blood Count 9.1 K/mm3 (4.8-10.8)
[2020-10-08 09:45] LABS: Alanine Aminotransferase 20 U/L (12-78); Albumin Level 3.8 g/dl (3.5-5.0); Alkaline Phosphatase 168 U/L (38-126); Anion Gap 12.7 mEq/L (5-15); Aspartate Amino Transferase 31 U/L (14-36); Bilirubin,Total 0.3 mg/dl (0.2-1.3); Blood Urea Nitrogen 14 mg/dl (7-17); Calcium 9.7 mg/dl (8.4-10.2); Carbon Dioxide 30 mmol/L (22.0-30.0); Chloride 97 mmol/L (98-107); Chol/HDL Ratio 3.9 (1-3.5); Cholesterol 176 mg/dl (140-200); Estimated Glomerular Filt Rate 105 ml/min (>60); GFR (African American) 128 ML/MIN (>60); Globulin 3.9 g/dL (1.3-3.2); Glucose 265 mg/dl (74-100); HDL Cholesterol 45 mg/dl (40-60); Potassium 3.7 mmoL/L (3.5-5.1); Sodium 136 mmol/L (136-145); Total Protein,Serum 7.7 g/dl (6.3-8.2); Triglycerides 106 mg/dl (30-150); VLDL Cholesterol 21 mg/dL (0-40)
[2020-10-08 09:56] LABS: Direct LDL Cholesterol 94.78 mg/dL (100-129)
[2020-10-08 10:16] LABS: Thyroid Stimulating Hormone < 0.02 uIU/mL (0.465-4.68)
[2020-10-08 10:17] LABS: Free T4 (Free Thyroxine) 1.66 ng/dl (0.78-2.19)
[2020-10-08 10:18] LABS: 25-OH Vitamin D, Total 27.6 ng/mL (30-100)
[2020-10-08 10:27] LABS: Hemoglobin A1C 9.8 % (4.0-6.0)
== END ==
PROVIDERS: Visit Provider Emergency Medicine
DX: E11.610 Type 2 diabetes mellitus with diabetic neuropathic arthropathy (principal); E55.9 Vitamin D deficiency, unspecified; Z79.4 Long term (current) use of insulin
CPT/HCPCS: 36415; 80053; 80061; 82306; 83036; 84439; 84443; 85025

== ENCOUNTER → 2021-01-05 13:45 | Outpatient (CLI) | payer MEDICARE, OTHER, SELFPAY ==
[2021-01-05 13:55] LABS: Basophils % 0.6 % (0.1-2.0); Eosinophils # 0.2 K/mm3 (0.0-0.4); Eosinophils % 3.1 % (0.1-12.0); Hematocrit 44.3 % (37.0-47.0); Hemoglobin 14.3 g/dL (12.2-16.2); Lymphocytes # 1.9 K/mm3 (0.7-4.5); Lymphocytes % 26.9 % (10-50); Mean Corpuscular HGB Conc 32.2 g/dL (31.8-35.4); Mean Corpuscular Hemoglobin 27.4 pg (27.0-31.2); Mean Platelet Volume 8.6 fl (7.4-10.4); Monocytes # 0.5 K/mm3 (0.1-1.0); Monocytes % 7.4 % (1.7-9.3); Neutrophils # 4.4 K/mm3 (1.8-7.8); Neutrophils % 62.1 % (37.0-80.0); Platelet Count 282 K/mm3 (142-424); Red Blood Count 5.21 M/mm3 (4.20-5.40); White Blood Count 7.2 K/mm3 (4.8-10.8)
[2021-01-05 13:57] LABS: Chloride 98 mmol/L (98-107); Potassium 4.6 mmoL/L (3.5-5.1); Sodium 135 mmol/L (136-145)
[2021-01-05 14:00] LABS: Alanine Aminotransferase 21 U/L (12-78); Albumin Level 3.6 g/dl (3.5-5.0); Albumin/Globulin Ratio 1.1 (1.1-1.8); Alkaline Phosphatase 158 U/L (38-126); Anion Gap 10.6 mEq/L (5-15); Aspartate Amino Transferase 26 U/L (14-36); Bilirubin,Total 0.7 mg/dl (0.2-1.3); Blood Urea Nitrogen 10 mg/dl (7-17); Calcium 9.7 mg/dl (8.4-10.2); Carbon Dioxide 31 mmol/L (22.0-30.0); Cholesterol 174 mg/dl (140-200); Estimated Glomerular Filt Rate 168 ml/min (>60); GFR (African American) 204 ML/MIN (>60); Globulin 3.3 g/dL (1.3-3.2); Glucose 287 mg/dl (74-100); Total Protein,Serum 6.9 g/dl (6.3-8.2); Triglycerides 146 mg/dl (30-150); VLDL Cholesterol 29 mg/dL (0-40)
[2021-01-05 14:01] LABS: Chol/HDL Ratio 4.4 (1-3.5); HDL Cholesterol 40 mg/dl (40-60)
[2021-01-05 14:11] LABS: Direct LDL Cholesterol 107.18 mg/dL (100-129); Hemoglobin A1C 11.1 % (4.0-6.0)
[2021-01-05 14:18] LABS: T4 (Thyroxine) 11.9 ug/dl (5.53-11.0)
[2021-01-05 14:31] LABS: Thyroid Stimulating Hormone < 0.02 uIU/mL (0.465-4.68)
== END ==
PROVIDERS: Visit Provider Nurse Practitioner Family
DX: E03.9 Hypothyroidism, unspecified (principal); E11.610 Type 2 diabetes mellitus with diabetic neuropathic arthropathy; M47.816 Spondylosis without myelopathy or radiculopathy, lumbar region; Z79.4 Long term (current) use of insulin
CPT/HCPCS: 80053; 80061; 82043; 83036; 84436; 84443; 85025

== ENCOUNTER → 2021-01-21 11:30 | Outpatient (CLI) | payer MEDICARE, OTHER, SELFPAY ==
--- NOTE | 2021-01-21 11:36 | XR_ITS ---
PROCEDURE: XR CHEST 2V CLINICAL HISTORY: elevated alk. phos. Shortness of breath COMPARISON: CT CTAC CTA-CHEST from 11/21/2016 CR CXR1 CHEST-PORTABLE from 02/25/2017 CR XR CHEST 2V from 08/30/2019 CR XR CHEST 2V from 10/16/2019 FINDINGS: The cardiomediastinal silhouette and pulmonary vascularity are within normal limits. The lungs are clear without infiltrates, suspicious nodules, or pleural effusions. No acute bony abnormalities. IMPRESSION: No acute findings. Dictated by: Manish Fall MD 01/21/2021 13:47 Manish Fall MD in [place] 01/21/2021 13:47
== END ==
PROVIDERS: PCP Nurse Practitioner Family; Visit Provider Nurse Practitioner Family
DX: R74.8 Abnormal levels of other serum enzymes (principal)
CPT/HCPCS: 71046

== ENCOUNTER → 2021-03-07 10:01 | Outpatient (POV) | payer MEDICARE, OTHER, SELFPAY ==
[2021-03-07 10:08] VITALS: BP 181/65; PULSE 90; RESP 18; O2SAT 95; BMI 52.4
--- NOTE | 2021-03-07 11:37 | P.PCN_ITS ---
- Procedure Date: 03/07/21 Time: 11:37 Anesthesiologist:: Linn Sharp APRN Complications:: None Pre-procedure Diagnosis:: Degenerative disc disease lumbar spine with lumbar radiculopathy symptoms, lumbar facet arthropathy Post-procedure Diagnosis:: Same Indications for Procedure:: Patient is a 50-year-old white female who presents today for intrathecal pain pump adjustment and for 6-month follow-up. She is at home refill through [facility]. She rates her pain a 7 out of 10 today. She is complaining of low back pain with radiation into her right hip. We discussed right SI joint injection, however, she would like to postpone injective therapy at this time. Patient says she is diabetic and does not want any steroids. We did discuss lidocaine only, however, she would like to hold off on any injections at this time. She would like an increase in her dosing. She is on hydromorphone at this time. We will increase her to see if she gets relief. Physical exam General: Alert and oriented x3, no acute distress, pleasant and cooperative, [on room air] Lungs: Respirations even and unlabored, symmetrical chest expansion Eyes: PERRL Musculoskeletal: Flexion and extension of lumbar spine somewhat guarded secondary to pain, deep tendon reflexes normal, strength in upper and lower extremities [5/5], [abnormal gait noted] Neurological: Speech clear, optometry professor equal, no gross sensory deficit Procedure Details:: Informed consent was obtained and the risk and benefits of the procedure were explained to the patient. Patient was taken to the procedure room where noninvasive monitoring was placed including noninvasive blood pressure cuff and pulse oximeter. Patient's pump was interrogated and was reprogrammed to increase to Dilaudid at 1.4 mg/day. The patient tolerated the procedure well with no complications. Plan and Disposition:: We will see the patient back as needed. We will see if the increase gives her relief. We will continue with her home refills through [facility]. Patient has been instructed to contact the clinic with any concerns before the next appointment. Dr. Goddard has reviewed this note and agrees with this plan of care. This note was dictated using voice recognition software and make contain errors or omissions.
== END ==
PROVIDERS: Visit Provider Clinical Nurse Specialist Family Health
DX: M51.16 Intervertebral disc disorders with radiculopathy, lumbar region (principal); M47.896 Other spondylosis, lumbar region; Z45.1 Encounter for adjustment and management of infusion pump
CPT/HCPCS: 62368; 99212; G0463

== ENCOUNTER → 2021-04-15 17:25 | Outpatient (CLI) | payer MEDICARE, OTHER, SELFPAY ==
[2021-04-15 18:16] LABS: Basophils % 0.5 % (0.1-2.0); Eosinophils # 0.2 K/mm3 (0.0-0.4); Eosinophils % 2.8 % (0.1-12.0); Hematocrit 40.3 % (37.0-47.0); Hemoglobin 13.5 g/dL (12.2-16.2); Lymphocytes # 2.7 K/mm3 (0.7-4.5); Mean Corpuscular HGB Conc 33.5 g/dL (31.8-35.4); Mean Corpuscular Hemoglobin 27.7 pg (27.0-31.2); Mean Corpuscular Volume 82.5 fl (81-99); Mean Platelet Volume 8.6 fl (7.4-10.4); Monocytes # 0.6 K/mm3 (0.1-1.0); Neutrophils # 5.1 K/mm3 (1.8-7.8); Neutrophils % 58.7 % (37.0-80.0); Platelet Count 266 K/mm3 (142-424); Red Blood Count 4.89 M/mm3 (4.20-5.40); Red Cell Distribution Width 14.3 % (11.5-17.5); White Blood Count 8.7 K/mm3 (4.8-10.8)
[2021-04-15 18:59] LABS: Hemoglobin A1C 8.7 % (4.0-6.0)
[2021-04-15 19:55] LABS: Alanine Aminotransferase 26 U/L (12-78); Albumin Level 3.6 g/dl (3.5-5.0); Alkaline Phosphatase 162 U/L (38-126); Anion Gap 12.4 mEq/L (5-15); Aspartate Amino Transferase 32 U/L (14-36); Bilirubin,Total 0.5 mg/dl (0.2-1.3); Blood Urea Nitrogen 11 mg/dl (7-17); Calcium 9.3 mg/dl (8.4-10.2); Carbon Dioxide 33 mmol/L (22.0-30.0); Chloride 97 mmol/L (98-107); Chol/HDL Ratio 4.3 (1-3.5); Cholesterol 176 mg/dl (140-200); Estimated Glomerular Filt Rate 130 ml/min (>60); GFR (African American) 157 ML/MIN (>60); Globulin 3.5 g/dL (1.3-3.2); Glucose 176 mg/dl (74-100); HDL Cholesterol 41 mg/dl (40-60); Potassium 4.4 mmoL/L (3.5-5.1); Sodium 138 mmol/L (136-145); Total Protein,Serum 7.1 g/dl (6.3-8.2); Triglycerides 146 mg/dl (30-150); VLDL Cholesterol 29 mg/dL (0-40)
[2021-04-15 20:06] LABS: Direct LDL Cholesterol 96.92 mg/dL (100-129)
[2021-04-15 20:12] LABS: T4 (Thyroxine) 12.2 ug/dl (5.53-11.0)
[2021-04-15 20:26] LABS: Thyroid Stimulating Hormone < 0.02 uIU/mL (0.465-4.68)
== END ==
PROVIDERS: Visit Provider Nurse Practitioner Family
DX: E03.9 Hypothyroidism, unspecified (principal); E11.9 Type 2 diabetes mellitus without complications; Z79.4 Long term (current) use of insulin
CPT/HCPCS: 80053; 80061; 82043; 83036; 84436; 84443; 85025

== ENCOUNTER → 2021-04-28 18:31 | Outpatient (CLI) | payer MEDICARE, OTHER, SELFPAY ==
[2021-04-28 18:46] LABS: Microscopic, Urine URINE MICROSCOPIC (MICROSCOPIC)
[2021-04-28 18:56] LABS: Basophils # 0.1 K/mm3 (0-0.2); Basophils % 0.6 % (0.1-2.0); Eosinophils # 0.3 K/mm3 (0.0-0.4); Eosinophils % 3.6 % (0.1-12.0); Hematocrit 40.5 % (37.0-47.0); Hemoglobin 13.8 g/dL (12.2-16.2); Lymphocytes # 2.9 K/mm3 (0.7-4.5); Lymphocytes % 33.3 % (10-50); Mean Corpuscular Hemoglobin 27.1 pg (27.0-31.2); Mean Corpuscular Volume 79.8 fl (81-99); Mean Platelet Volume 7.7 fl (7.4-10.4); Monocytes # 0.5 K/mm3 (0.1-1.0); Monocytes % 5.4 % (1.7-9.3); Neutrophils % 57.1 % (37.0-80.0); Platelet Count 282 K/mm3 (142-424); Red Blood Count 5.07 M/mm3 (4.20-5.40); Red Cell Distribution Width 14.2 % (11.5-17.5); White Blood Count 8.8 K/mm3 (4.8-10.8)
[2021-04-28 19:09] LABS: Appearance,Urine CLEAR (Clear); Bilirubin,Urine Negative (Negative); Blood, Urine TRACE-I (Negative); Color,Urine YELLOW (Yellow); Glucose,Urine (UA) 1+ (Negative); Ketones,Urine Negative (Negative); Leukocyte Esterase,Urine TRACE (Negative); Nitrate,Urine Negative (Negative); PH,Urine 5.5 (5.0-8.5); Protein,Urine Negative (Negative); Specific Gravity, Urine >= 1.030 (1.005-1.030); Urobilinogen,Urine 0.2 EU/dl (0.2)
--- NOTE | 2021-04-28 19:10 | XR_ITS ---
PROCEDURE: XR CHEST 2V CLINICAL HISTORY: Elevated Alkaline Phosphate COMPARISON: No exams were available for comparison FINDINGS: The cardiomediastinal silhouette and pulmonary vascularity are within normal limits. The lungs are clear without infiltrates, suspicious nodules, or pleural effusions. No acute bony abnormalities. IMPRESSION: No change with no acute finding Dictated by: Manish Fall MD 04/29/2021 07:27 Manish Fall MD in [place] 04/29/2021 07:27
[2021-04-28 19:15] LABS: Creatinine,Urine Random 113 mg/dL (Not Estab.)
[2021-04-28 19:29] LABS: Bacteria,Urine 1+ /lpf
[2021-04-28 19:48] LABS: Intact Parathyroid Hormone 26.2 pg/mL (7.5-53.5)
[2021-04-28 19:53] LABS: 25-OH Vitamin D, Total 29.1 ng/mL (30-100)
[2021-04-28 19:57] LABS: Chloride 98 mmol/L (98-107)
[2021-04-28 19:58] LABS: Albumin Level 3.6 g/dl (3.5-5.0); Potassium 4.2 mmoL/L (3.5-5.1); Sodium 138 mmol/L (136-145)
[2021-04-28 20:00] LABS: Blood Urea Nitrogen 11 mg/dl (7-17); Estimated Glomerular Filt Rate 130 ml/min (>60); GFR (African American) 157 ML/MIN (>60)
[2021-04-28 20:01] LABS: Anion Gap 13.2 mEq/L (5-15); Calcium 9.4 mg/dl (8.4-10.2); Carbon Dioxide 31 mmol/L (22.0-30.0); Glucose 235 mg/dl (74-100); Phosphorous 4.4 mg/dl (2.5-4.5)
== END ==
LOC: LAB 18:32 → RAD 19:02
PROVIDERS: PCP Nurse Practitioner Family; Referring Provider Internal Medicine Nephrology; Visit Provider Nurse Practitioner Family
DX: R80.9 Proteinuria, unspecified (principal); E55.9 Vitamin D deficiency, unspecified
CPT/HCPCS: 36415; 71046; 80069; 81001; 82043; 82306; 82570; 83970; 84155; 85025; 87086; 87088; 87186

== ENCOUNTER → 2021-05-09 14:08 | Outpatient (POV) | payer MEDICARE, OTHER, SELFPAY | PROVIDERS: Visit Provider Internal Medicine Nephrology | DX: Z00.00 Encounter for general adult medical examination without abnormal findings (principal) ==

== ENCOUNTER → 2021-07-28 14:34 | Outpatient (POV) | payer MEDICARE, OTHER, SELFPAY ==
[2021-07-28 14:59] VITALS: BP 205/97; PULSE 89; RESP 18; O2SAT 95; BMI 47.7
--- NOTE | 2021-07-28 15:34 | HMH.PMPROC ---
- Procedure Date: 07/28/21 Time: 15:34 Anesthesiologist:: Linn Sharp APRN Complications:: None Pre-procedure Diagnosis:: Degenerative disc disease lumbar spine with lumbar radiculopathy symptoms Post-procedure Diagnosis:: Same Indications for Procedure:: Patient is a 51-year-old white female who presents today for intrathecal pain pump adjustment. She is a home refill patient through [facility]. She is doing well overall. Patient rates her pain a 6 out of 10 and would like a small increase today. She is on periodic flow and is doing well overall. She says she is much more functional as she has lost more than 200 pounds and is now able to work part-time since having her pump implanted. She is very happy and is doing very well with her intrathecal therapy. She denies any side effects to the medication. She does have Dilaudid in her intrathecal pump. She is currently on 1.84 mg/day, periodic flow at 0.15 mg every 2 hours. Physical exam General: Alert and oriented x3, no acute distress, pleasant and cooperative Lungs: Respirations even and unlabored, symmetrical chest expansion Eyes: PERRL Musculoskeletal: Flexion and extension of lumbar [spine] somewhat guarded secondary to pain, [antalgic gait noted] Neurological: Speech clear, no gross sensory deficit Procedure Details:: Informed consent was obtained and the risk and benefits of the procedure were explained to the patient. Patient was taken to the procedure room where noninvasive monitoring was placed including noninvasive blood pressure cuff and pulse oximeter. Patient's pump was interrogated and was reprogrammed to increased at 2.4 mg/day of Dilaudid, periodic flow at 0.20 every 2 hours. The patient tolerated the procedure well with no complications. Plan and Disposition:: Patient is doing well overall. We will plan to follow-up with her in 6 months or she can call the clinic before if she has any concerns or questions. Risks and benefits of the medication have been explained in detail to the patient. The patient does understand the risk of dependence on the medication when given over a prolonged period. Patient has been advised of risks of oversedation with the prescribed medication. Narcan has been offered to the paitent in the event of oversedation. Patient has been advised that a family member should also be educated regarding administration of Narcan. The patient has been advised to consult with his/her primary care provider and pharmacist regarding drug-drug interaction of medications currently prescribed. Patient has been prescribed a controlled substance after being counseled on the medication, medication safety, and possible side effects. VANESSA report has been obtained and reviewed prior to prescription and found to be appropriate. Opioid contract was reviewed and signed by the patient, and that they have agreed to all of the terms set forth by our compliance program. Patient has been instructed to contact the clinic with any concerns before the next appointment. Dr. Goddard has reviewed this note and agrees with this plan of care. This note was dictated using voice recognition software and make contain errors or omissions.
== END ==
PROVIDERS: Visit Provider Clinical Nurse Specialist Family Health
DX: M51.16 Intervertebral disc disorders with radiculopathy, lumbar region (principal); Z45.1 Encounter for adjustment and management of infusion pump
CPT/HCPCS: 62368

== ENCOUNTER → 2021-08-05 17:26 | Outpatient (CLI) | payer MEDICARE, OTHER, SELFPAY ==
[2021-08-05 18:31] LABS: Basophils # 0.1 K/mm3 (0-0.2); Basophils % 1.2 % (0.1-2.0); Eosinophils # 0.3 K/mm3 (0.0-0.4); Eosinophils % 3.7 % (0.1-12.0); Hematocrit 41.8 % (37.0-47.0); Hemoglobin 13.4 g/dL (12.2-16.2); Mean Corpuscular Hemoglobin 28.1 pg (27.0-31.2); Mean Corpuscular Volume 87.9 fl (81-99); Mean Platelet Volume 9.5 fl (7.4-10.4); Monocytes # 0.5 K/mm3 (0.1-1.0); Monocytes % 6.6 % (1.7-9.3); Neutrophils # 3.8 K/mm3 (1.8-7.8); Neutrophils % 49.6 % (37.0-80.0); Platelet Count 282 K/mm3 (142-424); Red Blood Count 4.76 M/mm3 (4.20-5.40); Red Cell Distribution Width 13.2 % (11.5-17.5); White Blood Count 7.7 K/mm3 (4.8-10.8)
[2021-08-05 18:47] LABS: Alanine Aminotransferase 21 U/L (12-78); Albumin Level 3.5 g/dl (3.5-5.0); Alkaline Phosphatase 212 U/L (38-126); Anion Gap 10.5 mEq/L (5-15); Aspartate Amino Transferase 48 U/L (14-36); Bilirubin,Total 0.4 mg/dl (0.2-1.3); Blood Urea Nitrogen 13 mg/dl (7-17); Carbon Dioxide 31 mmol/L (22.0-30.0); Chloride 96 mmol/L (98-107); Chol/HDL Ratio 3.5 (1-3.5); Cholesterol 176 mg/dl (140-200); Estimated Glomerular Filt Rate 168 ml/min (>60); GFR (African American) 203 ML/MIN (>60); Globulin 3.4 g/dL (1.3-3.2); Glucose 369 mg/dl (74-100); HDL Cholesterol 50 mg/dl (40-60); Potassium 4.5 mmoL/L (3.5-5.1); Sodium 133 mmol/L (136-145); Total Protein,Serum 6.9 g/dl (6.3-8.2); Triglycerides 113 mg/dl (30-150); VLDL Cholesterol 23 mg/dL (0-40)
[2021-08-05 18:56] LABS: Amphetamine/Metha Screen,Urine Negative ng/ml (<1000)
[2021-08-05 18:57] LABS: Barbiturates Screen,Urine Negative ng/ml (<200)
[2021-08-05 18:58] LABS: Benzodiazepines Screen,Urine Negative ng/ml (<200); Cannabinoid Screen,Urine Negative ng/ml (<50); Direct LDL Cholesterol 96.77 mg/dL (100-129)
[2021-08-05 18:59] LABS: Cocaine Screen,Urine Negative ng/ml (<300)
[2021-08-05 19:00] LABS: Methadone Screen,Urine Negative ng/ml (<300); Opiate Screen,Urine Negative ng/ml (<300)
[2021-08-05 19:01] LABS: Phencyclidine Screen,Urine Negative ng/ml (<25)
[2021-08-05 19:04] LABS: T4 (Thyroxine) 11.1 ug/dl (5.53-11.0)
[2021-08-05 19:18] LABS: Hemoglobin A1C 8.6 % (4.0-6.0)
[2021-08-05 19:19] LABS: Thyroid Stimulating Hormone < 0.02 uIU/mL (0.465-4.68)
== END ==
PROVIDERS: Visit Provider Nurse Practitioner Family
DX: E03.9 Hypothyroidism, unspecified (principal); E11.610 Type 2 diabetes mellitus with diabetic neuropathic arthropathy; E55.9 Vitamin D deficiency, unspecified; I10 Essential (primary) hypertension; K21.9 Gastro-esophageal reflux disease without esophagitis; M47.816 Spondylosis without myelopathy or radiculopathy, lumbar region; Z79.4 Long term (current) use of insulin
CPT/HCPCS: 80053; 80061; 80305; 82306; 83036; 84436; 84443; 85025

== ENCOUNTER → 2021-09-05 11:16 | Outpatient (POV) | payer MEDICARE, OTHER, SELFPAY ==
[2021-09-05 11:31] VITALS: BP 147/66; PULSE 64; RESP 18; O2SAT 95; BMI 48.1
--- NOTE | 2021-09-05 12:41 | HMH.PMPROC ---
- Procedure Date: 09/05/21 Time: 11:30 Anesthesiologist:: Linn Sharp APRN, Bayron Hearn PA-C Complications:: None Pre-procedure Diagnosis:: Degenerative disc disease of the lumbar spine with lumbar radiculopathy symptoms Post-procedure Diagnosis:: Same Indications for Procedure:: Patient is a pleasant 51-year-old female who is here today for follow-up and an intrathecal pain pump adjustment. Patient is currently being treated for degenerative disc disease of lumbar spine with lumbar radiculopathy symptoms. She is an at home refill patient through [facility]. She currently has Dilaudid 10 mg/mL with a periodic flow of 0.2 mg every 2 hours. Patient denies any side effects from this medication. Patient denies any changes to the location and type of pain. She rates her pain today as a 8 out of 10. Patient is wanting an increase today. She is also taking gabapentin 400 mg 3 times a day that is prescribed by Dr. Khurram Chanel. Her Vanessa number is [phone] morphine equivalent up 0.\ Review of Systems General: No recent weight changes, no fever, no sleep disturbances Respiratory: No cough, no shortness of air, no recurring pulmonary infections Cardiovascular/peripheral vascular: No chest pain, no palpitations, no edema, no shortness of breath Gastrointestinal: No new onset incontinence, normal bowel movements reported Genitourinary: No new onset incontinence Musculoskeletal: Low back pain Psychiatric: [Normal mood/affect] Neurological: [Denies weakness in extremities], [denies balance issues] Procedure Details:: Informed consent was obtained and the risk and benefits of the procedure were explained to the patient. Patient was taken to the procedure room where noninvasive monitoring was placed including noninvasive blood pressure cuff and pulse oximeter. Patient's pump was interrogated and was reprogrammed to Dilaudid 10 mg/mL at a periodic flow rate of 0.22 mg every 2 hours. Patient will have a total dose per day of 2.64 mg/day. The patient tolerated the procedure well with no complications. Plan and Disposition:: We will see the patient back in 6 months for follow up. Patient has been instructed to contact the clinic with any concerns before the next appointment. Risks and benefits of the medication have been explained in detail to the patient. The patient does understand the risk of dependence on the medication when given over a prolonged period. Patient has been advised of risks of oversedation with the prescribed medication. Narcan has been offered to the paitent in the event of oversedation. Patient has been advised that a family member should also be educated regarding administration of Narcan. The patient has been advised to consult with his/her primary care provider and pharmacist regarding drug-drug interaction of medications currently prescribed. Patient has been prescribed a controlled substance after being counseled on the medication, medication safety, and possible side effects. VANESSA report has been obtained and reviewed prior to prescription and found to be appropriate. Opioid contract was reviewed and signed by the patient, and that they have agreed to all of the terms set forth by our compliance program. Patient has been instructed to contact the clinic with any concerns before the next appointment. Dr. Goddard has reviewed this note and agrees with this plan of care. This note was dictated using voice recognition software and make contain errors or omissions.
== END ==
PROVIDERS: Visit Provider Clinical Nurse Specialist Family Health
DX: M51.16 Intervertebral disc disorders with radiculopathy, lumbar region (principal); Z45.1 Encounter for adjustment and management of infusion pump
CPT/HCPCS: 62368

== ENCOUNTER → 2021-10-06 11:54 | Outpatient (POV) | payer MEDICARE, OTHER, SELFPAY ==
[2021-10-06 12:07] VITALS: BP 165/69; PULSE 68; RESP 18; O2SAT 97; BMI 47.4
--- NOTE | 2021-10-06 12:39 | HMH.PMPROC ---
- Procedure Date: 10/06/21 Time: 12:39 Anesthesiologist:: Linn Sharp APRN Complications:: None Pre-procedure Diagnosis:: Degenerative disc disease lumbar spine with lumbar radiculopathy symptoms Post-procedure Diagnosis:: Same Indications for Procedure:: Patient is a 51-year-old white female who presents today for intrathecal pain pump adjustment. She is here with a another patient is asked to be seen today for an adjustment. Patient says she is having increased low back pain. She is currently on hydromorphone at 2.64 mg/day, periodic flow at 0.22 mg every 2 hours. She says she is having worsening low back pain will increase her today to see if she gets relief. She does rate her pain a 6 out of 10. Physical exam General: Alert and oriented x3, no acute distress, pleasant and cooperative Lungs: Respirations even and unlabored, symmetrical chest expansion Eyes: PERRL Musculoskeletal: Flexion and extension lumbar [spine] somewhat guarded secondary to pain, [antalgic gait noted] Neurological: Speech clear, no gross sensory deficit Procedure Details:: Informed consent was obtained and the risk and benefits of the procedure were explained to the patient. Patient was taken to the procedure room where noninvasive monitoring was placed including noninvasive blood pressure cuff and pulse oximeter. Patient's pump was interrogated and was reprogrammed to hydromorphone at 0.26 mg every 2 hours, daily dose of 3.12 mg/day. The patient tolerated the procedure well with no complications. Plan and Disposition:: We will see the patient back in the clinic at the next intrathecal refill. Patient has been instructed to contact the clinic with any concerns before the next appointment. Dr. Goddard has reviewed this note and agrees with this plan of care. This note was dictated using voice recognition software and make contain errors or omissions.
== END ==
PROVIDERS: Visit Provider Clinical Nurse Specialist Family Health
DX: M51.16 Intervertebral disc disorders with radiculopathy, lumbar region (principal); Z45.1 Encounter for adjustment and management of infusion pump
CPT/HCPCS: 62368

== ENCOUNTER → 2021-10-28 15:39 | Outpatient (CLI) | payer MEDICARE, OTHER, SELFPAY ==
[2021-10-28 16:43] LABS: Basophils # 0.1 K/mm3 (0-0.2); Eosinophils # 0.2 K/mm3 (0.0-0.4); Eosinophils % 2.6 % (0.1-12.0); Hematocrit 43.1 % (37.0-47.0); Hemoglobin 13.9 g/dL (12.2-16.2); Lymphocytes # 3.1 K/mm3 (0.7-4.5); Lymphocytes % 33.2 % (10-50); Mean Corpuscular HGB Conc 32.3 g/dL (31.8-35.4); Mean Corpuscular Hemoglobin 27.9 pg (27.0-31.2); Mean Corpuscular Volume 86.4 fl (81-99); Mean Platelet Volume 8.5 fl (7.4-10.4); Monocytes # 0.6 K/mm3 (0.1-1.0); Monocytes % 6.3 % (1.7-9.3); Neutrophils # 5.4 K/mm3 (1.8-7.8); Neutrophils % 56.9 % (37.0-80.0); Platelet Count 268 K/mm3 (142-424); Red Blood Count 4.98 M/mm3 (4.20-5.40); Red Cell Distribution Width 13.9 % (11.5-17.5); White Blood Count 9.4 K/mm3 (4.8-10.8)
[2021-10-28 17:14] LABS: Alanine Aminotransferase 20 U/L (12-78); Albumin Level 3.8 g/dl (3.5-5.0); Albumin/Globulin Ratio 1.1 (1.1-1.8); Alkaline Phosphatase 191 U/L (38-126); Anion Gap 9.7 mEq/L (5-15); Aspartate Amino Transferase 29 U/L (14-36); Bilirubin,Total 0.5 mg/dl (0.2-1.3); Blood Urea Nitrogen 12 mg/dl (7-17); Calcium 9.5 mg/dl (8.4-10.2); Carbon Dioxide 31 mmol/L (22.0-30.0); Chloride 98 mmol/L (98-107); Chol/HDL Ratio 2.8 (1-3.5); Cholesterol 173 mg/dl (140-200); Estimated Glomerular Filt Rate 168 ml/min (>60); GFR (African American) 203 ML/MIN (>60); Globulin 3.6 g/dL (1.3-3.2); Glucose 104 mg/dl (74-100); HDL Cholesterol 61 mg/dl (40-60); Potassium 3.7 mmoL/L (3.5-5.1); Sodium 135 mmol/L (136-145); Total Protein,Serum 7.4 g/dl (6.3-8.2); Triglycerides 79 mg/dl (30-150); VLDL Cholesterol 16 mg/dL (0-40)
[2021-10-28 17:24] LABS: Direct LDL Cholesterol 91.05 mg/dL (100-129)
[2021-10-28 17:31] LABS: T4 (Thyroxine) 10.5 ug/dl (5.53-11.0)
[2021-10-28 17:38] LABS: Hemoglobin A1C 11.8 % (4.0-6.0)
[2021-10-28 17:45] LABS: Thyroid Stimulating Hormone < 0.02 uIU/mL (0.465-4.68)
[2021-10-28 18:45] LABS: Amphetamine/Metha Screen,Urine Negative ng/ml (<1000)
[2021-10-28 18:46] LABS: Barbiturates Screen,Urine Negative ng/ml (<200)
[2021-10-28 18:47] LABS: Benzodiazepines Screen,Urine Negative ng/ml (<200); Cannabinoid Screen,Urine Negative ng/ml (<50)
[2021-10-28 18:48] LABS: Cocaine Screen,Urine Negative ng/ml (<300)
[2021-10-28 18:49] LABS: Methadone Screen,Urine Negative ng/ml (<300); Opiate Screen,Urine Positive ng/ml (<300)
[2021-10-28 18:50] LABS: Phencyclidine Screen,Urine Negative ng/ml (<25)
[2021-10-31 12:44] LABS: C-Peptide 1.2 ng/mL (1.1-4.4)
== END ==
PROVIDERS: PCP Nurse Practitioner Family; Visit Provider Nurse Practitioner Family
DX: E11.610 Type 2 diabetes mellitus with diabetic neuropathic arthropathy; E03.9 Hypothyroidism, unspecified; E55.9 Vitamin D deficiency, unspecified; M47.816 Spondylosis without myelopathy or radiculopathy, lumbar region; E11.42 Type 2 diabetes mellitus with diabetic polyneuropathy; R79.89 Other specified abnormal findings of blood chemistry; Z79.4 Long term (current) use of insulin
CPT/HCPCS: 36415; 80053; 80061; 80305; 82043; 82306; 83036; 84436; 84443; 84681; 85025

== ENCOUNTER 2021-12-07 11:00 | Outpatient (RCR) | payer MEDICARE, OTHER, SELFPAY | END 2021-12-28 11:20 | disposition home or self-care (01) | LOC: PT.CARL 11:00 | PROVIDERS: PCP Nurse Practitioner Family; Visit Provider Orthopaedic Surgery Adult Reconstructive Orthopaedic Surgery | DX: M25.511 Pain in right shoulder (principal) | CPT/HCPCS: 97010; 97110; 97140; 97163 ==

== ENCOUNTER → 2022-02-06 09:55 | Outpatient (POV) | payer MEDICARE, OTHER, SELFPAY ==
[2022-02-06 10:56] VITALS: BP 170/65; PULSE 81; RESP 19; TEMP 36.4; O2SAT 95; BMI 45.0
--- NOTE | 2022-02-06 11:59 | HMH.PMPROC ---
- Procedure Date: 02/06/22 Time: 11:59 Anesthesiologist:: FLORES Hinkle Complications:: None Pre-procedure Diagnosis:: Degenerative disc disease of lumbar spine with lumbar radiculopathy symptoms Post-procedure Diagnosis:: Same Indications for Procedure:: Patient is a pleasant 51-year-old female who presents today for intrathecal pain pump reprogram. The patient is being treated for degenerative disc disease of lumbar spine with lumbar radiculopathy symptoms. Patient is currently being managed with Dilaudid 10 mg/mL at a rate of 4.1160 mg/day and bupivacaine 5 mg/mL at a rate of 2.0580 mg/day. Denies any side effect from this medication. Patient is a home refill with [facility]. She was recently increased last week because she was having significant right-sided upper buttock pain that radiates to her posterior right knee. After the increase, patient had minimal relief of symptoms. She says that she is still complaining of pain today and this is worse whenever she works. 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 This does get better whenever she sits down. She is wanting an adjustment again today. Patient rates pain a 8 out of 10. Drug screen is appropriate. Sukhjinder [id number] with an active morphine equivalent of 0 has been reviewed and is appropriate. Physical exam General: Alert and oriented x3, no acute distress, pleasant and cooperative, [on room air] Lungs: Respirations even and unlabored, symmetrical chest expansion Eyes: PERRL Musculoskeletal: Flexion and extension of lumbar [spine] somewhat guarded secondary to pain, [antalgic gait noted]; right SI is positive for MICHOACANO, Sally's, [place]'s, [place]'s, compression, and distraction. Patient is also tender to palpation around the right greater trochanteric bursa. Neurological: Speech clear, no gross sensory deficit Procedure Details:: Informed consent was obtained and the risk and benefits of the procedure were explained to the patient. Patient was taken to the procedure room where noninvasive monitoring was placed including noninvasive blood pressure cuff and pulse oximeter. Patient's pump was interrogated and was reprogrammed to Dilaudid 4.5 mg/day. The patient tolerated the procedure well with no complications. Plan and Disposition:: Patient has been complaining of worsening right upper buttock pain that radiates to her right posterior knee. This is worse with prolonged standing and walking. Right SI is positive for MICHOACANO, Sally's, [place]'s, [place]'s, compression, and distraction. Patient is tender to palpation around the right greater trochanteric bursa. We will schedule the patient for a right SI injection and right greater trochanteric bursa injection. Risks and benefits of the procedure have been explained to the patient. Patient would like to proceed with the procedure. Patient has been instructed to contact the clinic with any concerns before the next appointment. Dr. Goddard has reviewed this note and agrees with this plan of care. This note was dictated using voice recognition software and make contain errors or omissions.
== END ==
PROVIDERS: Visit Provider Student in an Organized Health Care Education/Training Program
DX: M51.16 Intervertebral disc disorders with radiculopathy, lumbar region (principal); Z45.1 Encounter for adjustment and management of infusion pump
CPT/HCPCS: 62368; 99213; G0463

== ENCOUNTER 2022-02-10 12:42 | Day surgery (SDC) | payer MEDICARE, OTHER, SELFPAY ==
[2022-02-10 12:45] VITALS: BP 196/81; PULSE 79; RESP 18; TEMP 36.6; O2SAT 96; BMI 60.7
[2022-02-10 12:58] VITALS: BP 190/83; PULSE 85; RESP 19; O2SAT 98
[2022-02-10 12:59] VITALS: BP 212/90; PULSE 83; RESP 19; O2SAT 98
--- NOTE | 2022-02-10 13:00 | P.PCN_ITS ---
- Procedure Date: 02/10/22 Time: 13:01 Anesthesiologist:: Niraj Rodriguez CRNA Complications:: None Pre-procedure Diagnosis:: Right sacroiliitis. Right trochanteric bursitis. Post-procedure Diagnosis:: Same Indications for Procedure:: This patient's a 51-year-old female that comes to our clinic today for right SI joint injection as well as right trochanteric bursa injection. We currently manage her with intrathecal pain pump. She is having some breakthrough pain in these areas. She has responded well to these injections in the past. Procedure Details:: Procedure: Right trochanteric bursa injection under fluoroscopy We then moved to the right trochanteric bursa.~ C-arm fluoroscopy was used to view the left greater trochanter.~ The skin and subcutaneous tissues overlying the right greater trochanter were anesthetized using lidocaine, 1.5% and a 25- gauge needle.~ After this, a 22-gauge spinal needle was inserted and advanced until it contacted the right greater trochanter.~ Dye was injected and good spread was seen throughout the right trochanteric bursa. After this, approximately 5 mL of bupivacaine, 0.25% and Depo-Medrol, 40 mg was incremen tally injected into the right right trochanteric bursa.~ The patient tolerated the procedure well with no complications. Procedure: Right sacroliliac joint injection under fluoroscopy Informed consent was obtained and the risk and benefits of the procedure were explained to the patient.~ The patient was taken to the procedure room and noninvasive monitors were placed including noninvasive blood pressure cuff and pulse oximeter.~ The patient was placed prone on the procedure table.~ The~ right hip was cleansed using Betadine as a cleansing solution.~ C-arm fluorosocpy was used to view the right SI joint.~ The skin and subcutaneous tissues were anesthetized using Lidocaine 1.5% and a 25-gauge needle.~ After this, a 22-gauge spinal needle was inserted under fluoroscopic guidance into the inferior aspect of the right SI joint.~ Omnipaque dye was injected and a good spread was seen throughout the joint.~ After this, approximately 5 mL of bupivacaine 0.25% and Depo-Medrol 40 mg was incrementally injected into the sacroiliac joint.~ The patient tolerated the procedure well with no complications.~ The patient was observed in the Pain Clinic, then discharged home neurologically intact.~ Plan and Disposition:: Patient was discharged without incident.
[2022-02-10 13:20] VITALS: BP 175/78; PULSE 86; RESP 20; O2SAT 99
== END 2022-02-10 13:20 | disposition home or self-care (01) ==
LOC: SC.PAINP 12:43
PROVIDERS: PCP Nurse Practitioner Family; Visit Provider Nurse Anesthetist, Certified Registered
DX: M46.1 Sacroiliitis, not elsewhere classified (principal); M70.61 Trochanteric bursitis, right hip; I10 Essential (primary) hypertension; E78.5 Hyperlipidemia, unspecified; J44.9 Chronic obstructive pulmonary disease, unspecified; Z86.711 Personal history of pulmonary embolism; Z99.81 Dependence on supplemental oxygen; F41.9 Anxiety disorder, unspecified; F32.A Depression, unspecified; E03.9 Hypothyroidism, unspecified; E11.9 Type 2 diabetes mellitus without complications; M47.816 Spondylosis without myelopathy or radiculopathy, lumbar region; G62.9 Polyneuropathy, unspecified; K21.9 Gastro-esophageal reflux disease without esophagitis
CPT/HCPCS: 20610; 27096; 77002; G0260; J1040

== ENCOUNTER 2022-02-11 03:44 | Observation (INO) | payer MEDICARE, OTHER, SELFPAY ==
[2022-02-11] VITALS (12 sets, daily range): BP systolic 144–179; BP diastolic 45–96; PULSE 71–98; RESP 16–22; TEMP 36.7–37.1; O2SAT 94–99; BMI 44.5; BMI 46.7
--- NOTE | 2022-02-11 | CA_ITS ---
FINAL REPORT CLINICAL HISTORY: Right leg pain x 3 months, burning down outside of leg. HX of bilateral DVT'S following knee surgeries 2006, 2016 Pt 5'6 290 lb FINDINGS: Color Doppler, duplex Doppler and compression sonography of the bilateral lower extremities was performed. There is no evidence of deep venous thrombosis from the level of the groin to the calf. The deep veins are patent and compressible. There is an enlarged right inguinal lymph node consistent with a reactive lymph node. IMPRESSION: No evidence of deep venous thrombosis bilateral lower extremities. Reviewed, Interpreted and Dictated by Lazaro Urbano III, MD Transcribed by Darin Stevens Authenticated by Lazaro Urbano III, MD on 02/13/2022 07:50:37 AM [facility]
--- NOTE | 2022-02-11 04:31 | PC.NURSE ---
Patient requested toradol be given IV, however, order was given for IM injection. Explained benefits for im injections. Patient tolerated injection well.
--- NOTE | 2022-02-11 04:42 | HMH.EDGENADL ---
ED Disposition Clinical Impression: Hyperglycemia, Neuropathic pain Disposition: Admitted As Inpatient Condition on Discharge: Good Referrals: Khurram Chanel APRN [Primary Care Provider] - - Critical Care Critical Care Time: No Attestation: On 02/11/22, the high probability of a clinically significant, sudden or life threatening deterioration of the following system(s) required my full and direct attention, intervention and personal management. The time I documented below is in addition to time spent performing reported procedures but includes the following listed in this critical care notation. Medical Decision Making - Sukhjinder Inquiry Pt receiving controlled substance: No Vital Signs: 02/11/22 03:46 02/11/22 05:04 Temperature 98.8 F Temperature Source Oral Pulse Rate 95 H Pulse Rate [Left Radial] 98 H Respiratory Rate 16 Blood Pressure 152/76 H Blood Pressure [Right Arm] 179/96 H Blood Pressure Mean [Right Arm] 123 02 Sat by Pulse Oximetry 99 97 Oxygen Delivery Method Room Air Room Air - Lab Data Lab Results 02/11/22 05:00: WBC 8.3, RBC 4.72, Hgb 14.0, Hct 41.3, MCV 87.5, MCH 29.6, MCHC 33.8, RDW 13.9, Plt Count 278, MPV 8.2, Neut % (Auto) 65.5, Lymph % (Auto) 24.0, Child[place] % (Auto) 6.8, Eos % (Auto) 2.0, Baso % (Auto) 1.7, Neut # (Auto) 5.4, Lymph # (Auto) 2.0, Child[place] # (Auto) 0.6, Eos # (Auto) 0.2, Baso # (Auto) 0.1 02/11/22 05:00: Sodium 136, Potassium 4.3, Chloride 98, Carbon Dioxide 33 H, Anion Gap 9.3, BUN 10, Creatinine 0.70, Estimated Creat Clear 88, Estimated GFR 88, Est GFR ( Amer) 106, Glucose 407 H*, Calcium 9.3, Total Bilirubin 0.2, AST 36, ALT 36, Alkaline Phosphatase 232 H, Total Protein 7.0, Albumin 3.4 L, Globulin 3.6 H, Albumin/Globulin Ratio 0.9 L 02/11/22 05:00: Acetone Level None detected 02/11/22 06:57: VBG pH 7.38, VBG pCO2 43.7, VBG pO2 76.7 H, VBG HCO3 25.1, VBG Total CO2 26.4, VBG O2 Saturation 96.0 H, VBG Base Excess -0.1 Result diagrams: 02/11/22 05:00 02/11/22 05:00 Orders (Tests/Meds): ED MEDICATIONS Generic Name Dose Route Start Last Admin Trade Name Freq PRN Reason Stop Dose Admin Hydromorphone HCl 1 mg 02/11/22 07:35 Hydromorphone 2mg/Ml Syringe IV 02/11/22 07:36 ONCE ONE Discontinued Medications Generic Name Dose Route Start Last Admin Trade Name Freq PRN Reason Stop Dose Admin Hydromorphone HCl 1 mg 02/11/22 04:57 02/11/22 05:04 Hydromorphone 2mg/Ml Syringe IV 02/11/22 04:58 1 mg ONCE ONE Administration Insulin Human Regular 5 unit 02/11/22 06:45 02/11/22 06:48 Insulin Human Regular 100 Units/Ml 10ml Vial IVP 02/11/22 06:46 5 unit ONCE ONE Administration Ketorolac Tromethamine 30 mg 02/11/22 04:20 02/11/22 04:23 Ketorolac 30mg/Ml Vial IM 02/11/22 04:21 30 mg ONCE ONE Administration Methocarbamol 1,000 mg 02/11/22 04:22 02/11/22 04:23 Methocarbamol 500mg Tablet PO 02/11/22 04:23 1,000 mg ONCE ONE Administration ORDERS Category Date Time Status Rapid PCR Covid and Flu A/B Stat Lab 02/11/22 07:22 Received VBG [Venous Blood Gas] Stat RT 02/11/22 07:15 Ordered Medical Decision Narrative: 51-year-old female presents emergency department with right lower extremity lateral and posterior lower leg burning pain which she states has been occurring for the past several months, stating pain is worse today. Patient has no clinical concern for acute spinal cord compression today and is ambulatory in the emergency department and hemodynamically stable. Patient has not had fever or other constitutional symptoms and has not had acute trauma to the lower extremity. Patient was given 30 mg Toradol in the emergency department as well as 1000 mg Robaxin in the emergency department, with patient pain still not well controlled and patient given 1 mg IV Dilaudid. Patient was reassessed and stated that she was still in too much pain to take care of herself at home or to drive herself home, with p
--- NOTE | 2022-02-11 05:06 | PC.NURSE ---
Pt able to ambulate to bathroom with no assistance
[2022-02-11 05:12] LABS: Basophils # 0.1 K/mm3 (0-0.2); Basophils % 1.7 % (0.1-2.0); Eosinophils # 0.2 K/mm3 (0.0-0.4); Hematocrit 41.3 % (37.0-47.0); Mean Corpuscular HGB Conc 33.8 g/dL (31.8-35.4); Mean Corpuscular Hemoglobin 29.6 pg (27.0-31.2); Mean Corpuscular Volume 87.5 fl (81-99); Mean Platelet Volume 8.2 fl (7.4-10.4); Monocytes # 0.6 K/mm3 (0.1-1.0); Monocytes % 6.8 % (1.7-9.3); Neutrophils # 5.4 K/mm3 (1.8-7.8); Neutrophils % 65.5 % (37.0-80.0); Platelet Count 278 K/mm3 (142-424); Red Blood Count 4.72 M/mm3 (4.20-5.40); Red Cell Distribution Width 13.9 % (11.5-17.5); White Blood Count 8.3 K/mm3 (4.8-10.8)
[2022-02-11 05:19] LABS: Chloride 98 mmol/L (98-107); Potassium 4.3 mmoL/L (3.5-5.1); Sodium 136 mmol/L (136-145)
[2022-02-11 05:21] LABS: Blood Urea Nitrogen 10 mg/dl (7-17); Creatinine Clearance Estimated 88 mL/min (50-200); Estimated Glomerular Filt Rate 88 ml/min (>60); GFR (African American) 106 ML/MIN (>60)
[2022-02-11 05:22] LABS: Alanine Aminotransferase 36 U/L (12-78); Albumin Level 3.4 g/dl (3.5-5.0); Albumin/Globulin Ratio 0.9 (1.1-1.8); Alkaline Phosphatase 232 U/L (38-126); Anion Gap 9.3 mEq/L (5-15); Aspartate Amino Transferase 36 U/L (14-36); Bilirubin,Total 0.2 mg/dl (0.2-1.3); Calcium 9.3 mg/dl (8.4-10.2); Carbon Dioxide 33 mmol/L (22.0-30.0); Globulin 3.6 g/dL (1.3-3.2)
[2022-02-11 05:31] LABS: Glucose 407 mg/dl (74-100)
[2022-02-11 06:58] LABS: Acetone, Serum (Rapid) None Detected (None Detect)
[2022-02-11 07:06] LABS: VBG PH 7.38 mmol/L (7.31-7.41)
[2022-02-11 07:07] LABS: VBG Base Excess -0.1 mmol/L (-2.4-2.3); VBG PO2 76.7 mmol/L (28-40)
[2022-02-11 07:08] LABS: VBG HCO3 25.1 mmol/L (23-30); VBG PCO2 43.7 mmol/L (35-51); VBG Total CO2 26.4 mmol/L (23-27)
[2022-02-11 07:32] LABS: Coronavirus 19, PCR Not Detected (NotDetected); Influenza A, PCR Not Detected (NotDetected); Influenza B, PCR Not Detected (NotDetected)
[2022-02-11 08:18] LABS: Microscopic, Urine URINE MICROSCOPIC (MICROSCOPIC)
[2022-02-11 08:21] LABS: Appearance,Urine SL CLOUDY (Clear); Bilirubin,Urine Negative (Negative); Blood, Urine 1+ (Negative); Color,Urine DK YELLOW (Yellow); Glucose,Urine (UA) 3+ (Negative); Ketones,Urine Negative (Negative); Leukocyte Esterase,Urine Negative (Negative); Nitrate,Urine Negative (Negative); Protein,Urine 1+ (Negative); Specific Gravity, Urine >= 1.030 (1.005-1.030); Urobilinogen,Urine 0.2 EU/dl (0.2)
--- NOTE | 2022-02-11 08:34 | PC.NURSE ---
report given to Aubree PASTRANA
[2022-02-11 08:52] LABS: Bacteria,Urine 1+ /lpf; WBC,Urine Occasional #/hpf (0-3)
[2022-02-11 08:53] LABS: Amorphous Sediment,Urine Trace /lpf; Hyaline Casts,Urine Occasional #/lpf (0)
--- NOTE | 2022-02-11 10:37 | P.CONPHA_ITS ---
[facility] Pharmacy VTE Monitoring - Patient Demographics Admission date: 02/11/22 Report Date: 02/11/22 Time: 10:37 Allergies/Adverse Reactions: Patient Allergies ceftriaxone [From ROCEPHIN] Allergy (Unknown, Verified 02/10/22 12:44) droperidol [From INAPSINE] Allergy (Unknown, Verified 02/10/22 12:44) ibuprofen [IBUPROFEN] Allergy (Unknown, Verified 02/10/22 12:44) moxifloxacin [From AVELOX] Allergy (Unknown, Verified 02/10/22 12:44) Height: 1.68 m Weight: 131.542 kg Patient Problems: Current Active Problems Hyperglycemia (Acute) Neuropathic pain (Acute) - VTE Risk Labs: VTE Related Lab Results Hgb 14.0 g/dL (12.2-16.2) 02/11/22 05:00 Hct 41.3 % (37.0-47.0) 02/11/22 05:00 Plt Count 278 K/mm3 (142-424) 02/11/22 05:00 BUN 10 mg/dl (7-17) 02/11/22 05:00 Creatinine 0.70 mg/dl (0.52-1.04) 02/11/22 05:00 Estimated Creat Clear 88 mL/min (50-200) 02/11/22 05:00 VTE Score: 2 - Prophylaxis VTE Prophylaxis Ordered?: Yes Types of VTE Prophylaxis: TEDS Knee High Location of Applied Device: Bilateral Lower Extremeties
--- NOTE | 2022-02-11 10:42 | HMH.PHAINT ---
MEDICATION RECONCILIATION COMPLETED ON PATIENT USING EXTERNAL FILL HISTORY FROM PHARMACY, VANESSA REPORT, AND LIST FROM PCP OFFICE. -NGOC HUNTERD
--- NOTE | 2022-02-11 11:29 | HMH.HP ---
*Admission Date: 02/11/22 *History of present illness: 51-year-old female presents emergency department with right lower extremity lateral and posterior lower leg burning pain which she states has been occurring for the past several months, stating pain is worse today. Patient has no clinical concern for acute spinal cord compression today and is ambulatory in the emergency department and hemodynamically stable. Patient has not had fever or other constitutional symptoms and has not had acute trauma to the lower extremity. Patient was given 30 mg Toradol in the emergency department as well as 1000 mg Robaxin in the emergency department, with patient pain still not well controlled and patient given 1 mg IV Dilaudid. Patient was reassessed and stated that she was still in too much pain to take care of herself at home or to drive herself home, with patient ultimately admitted for intractable pain. Patient was also found to have hyperglycemia in the emergency department without an anion gap or an acidemia, with no concern for DKA this time. 51-year-old female presents emergency department with history of right lower extremity pain which she states is burning and states on the lateral aspect of her right lower extremity lower leg as well as the posterior aspect of the lower leg and the foot, stating that this has been ongoing for at least months, with pain worse today and not relieved by lidocaine/bupivacaine/steroid injections at the SI joint earlier today. Patient denies fevers, vomiting, diarrhea, dysuria saddle anesthesia, urinary or bowel incontinence, inability to ambulate, back pain, trauma or chest or abdominal pain or any other constitutional symptoms. Patient states that she takes gabapentin states that she has a Dilaudid pain pump but states that these things have not helped her pain. Patient states that she next has her Dilaudid pain pump refilled in March 2022. Patient states that she does not have one to drive her home. Patient states that she is allergic to ibuprofen but states that she does not have a problem with Toradol stating that she has had this in the past. Patient denies recreational drug use. above from ER physician Patient is followed in our office by Khurram Chanel. Patient has a history of diabetes, has never been in DKA. Her blood sugar was 400 this morning. Patient has had the Dilaudid pump for approximately 2 years. She is status post total knee replacement bilaterally. Ketones negative acetone negative, no mentation changes [facility] History Medical History: Reports:: Anxiety, Congestive Heart Failure, Chronic Obstructive Pulmonary Disease (COPD), Coronary Artery Disease, Diabetes Mellitus Type 2, Gastroesophageal Reflux Disease(GERD), Hyperlipidemia, Hypertension, Migraine Denies:: Cancer, Diabetes Mellitus Type 1, Internal Pacemaker, MRSA, Seizures *Have you ever received a pneumonia vaccine?: Yes *Have you received a flu vaccine this season?: Yes Other Medical History: Reports: Anemia, Arthritis, Hypothyroidism, Thyroid Disease. Denies: Blood Transfusion Reaction Laterality Cases: Bilateral: Arthroscopy Knee Other Surgeries: Yes: Cardiac Catheterization, Other (pain pump implant). No: Pacemaker Amputation: No Fractures: No - *Social History Last grade of school completed: High school graduate Smoking Status: Former smoker Tobacco Type: cigarettes # Packs/Day (cigarettes): 35 Alcohol Intake: never Substance Use Type: denies use *Occupational Status:: employed Housing: house Household Members: friend(s) *Travel in the last 8 weeks: None - Psychiatric History Pschychiatric History:: Reports:: Anxiety Family Hx:: Cancer, Diabetes, Hyperlipidemia, Hypertension Review of Systems - Constitutional Reports weakness - Eyes Denies change in vision - ENT Denies abnormal hearing - *Cardiovascular Denies chest pain - *Respiratory Denies chest congestion - *Gastrointestinal Denies abdominal pain - *G
[2022-02-11 11:56] LABS: POC Glucose,Bedside 204 (70-110)
--- NOTE | 2022-02-11 14:03 | PC.NURSE ---
pt arrived to floor via wheelchair @ 8:56
--- NOTE | 2022-02-11 14:58 | PC.NURSE ---
PT IS RESTING IN BED. ALERT AND ORIENTED X4. SINCE PT HAS ARRIVED TO THE FLOOR FROM THE ED IT HAS BEEN VERY DIFFICULT TO CONTROL PAIN. PT STATES HER PAIN RADIATES FROM BELOW KNEE DOWN TO FOOT ON THE RLE. PT STATES IT FEELS LIKE A KNIFE IS STABBING HER. NO REDNESS/WARMTH NOTED. PALPABLE PULSES. NOTIFIED PHYSICIAN VENDING MACHINE COIN COLLECTOR. ORDERED LOVENOX AND DOPPLER. PT WILL RECEIVE FIRST DOSE OF LOVENOX NOW. WILL CONTINUE TO MONITOR.
[2022-02-11 16:50] LABS: POC Glucose,Bedside 404 (70-110)
--- NOTE | 2022-02-11 22:17 | PC.NURSE ---
Addendum entered by Naomie Magallanes RN 02/12/22 05:13: Patient slept most of the night. Patient called out in pain gave toradol shot per mar revaluated. Patient is now sleeping. Will continue to medicate patient for pain per MAR. Original Note: Patient resting in bed, on phone rates pain a 10 on a scale of 1-10. She states the pain is from RLE below the knee down to her foot. She states it feels as the calf muscle is on fire. No redness, warmth, or swelling noted. Pedal pulses are present 3+. Patient did ambulate down to vending machine with ease. She states it hurts to even lay the leg on the bed. Elevated the right leg patient stating it's helped some. Lidocaine patch in place. Patient moans in pain and rubs leg while in room. However when passing by room patient seems to be in no distress. Will continue to medicate patient per MAR for pain. Updated physician authors motivational no new orders at this time.
[2022-02-12 04:36] VITALS: BP 142/67; PULSE 66; RESP 16; TEMP 36.5; O2SAT 97
[2022-02-12 06:28] LABS: POC Glucose,Bedside 197 (70-110)
[2022-02-12 06:32] VITALS: BMI 47.7
[2022-02-12 08:00] VITALS: BP 141/65; PULSE 65; RESP 18; TEMP 36.6; O2SAT 98
[2022-02-12 11:44] LABS: POC Glucose,Bedside 275 (70-110)
--- NOTE | 2022-02-12 12:02 | HMH.ACPN2 ---
Internal Medicine - PN: Subj *Date: 02/12/22 *Time: 12:02 Interval history: Patient relays that she had a very difficult night. Patient is in severe pain this morning mostly along the right lower leg, distal and lateral. She relays that the pain is like a hot poker, it is lancinating, causes her to writhe on the bed and cry. Relays a 10 out of 10 level. Patient had transient relief with IV Dilaudid. Topical lidocaine patch was attempted with success. Perfusion to the foot appears adequate. As are intact, the foot is warm there is no ischemic demarcation. Venous duplex was negative for clot. Exam Vital signs and Labs for Last 24 Hours: Temp Pulse Resp BP Pulse Ox 97.9 F 65 18 141/65 H 98 02/12/22 08:00 02/12/22 08:00 02/12/22 08:00 02/12/22 08:00 02/12/22 08:00 Laboratory Results - last 24 hr 02/11/22 16:42: POC Glucose 404 H* 02/11/22 21:33: POC Glucose 197 H 02/12/22 11:37: POC Glucose 275 H I & O for Last 24 hours: Intake & Output 02/09/22 02/10/22 02/11/22 02/12/22 23:59 23:59 23:59 23:59 Intake Total 1320 / 1320 720 / 720 Balance 1320 / 1320 720 / 720 Weight 290 lb 296 lb 12.8 oz - Constitutional moderate distress, obese - *Routine HEENT Exam Head: Present: normocephalic Eye: Present: EOMI, PERRL ENT: Present: mucous membranes moist - *Routine Neck Exam Present: supple. Absent: lymphadenopathy - *Routine Respiratory Exam Present: CTA bilaterally - *Routine Cardiovascular Exam Present: RRR - *Routine Abdominal Exam Present: soft, normoactive bowel sounds, obese. Absent: tenderness - *Routine Extremities Exam Present: pulses intact, calf tenderness, tenderness. Absent: cyanosis - *Routine Skin Exam Present: warm. Absent: rash - *Routine Neurological Exam Present: alert, oriented X3 Assessment and Plan (1) Hyperglycemia Status: Chronic Category: Medical Code(s): R73.9 - Hyperglycemia, unspecified (2) Neuropathic pain Status: Chronic Category: Medical Code(s): M79.2 - Neuralgia and neuritis, unspecified (3) Degenerative joint disease (DJD) of lumbar spine Status: Chronic Qualifiers: Spinal osteoarthritis complication: with radiculopathy Qualified Code(s): M47.26 - Other spondylosis with radiculopathy, lumbar region Category: Medical Code(s): M47.816 - Spondylosis without myelopathy or radiculopathy, lumbar region (4) Depression Status: Chronic Qualifiers: Depression Type: unspecified Qualified Code(s): F32.A - Depression, unspecified Category: Medical Code(s): F32.9 - Major depressive disorder, single episode, unspecified (5) Diabetes Status: Chronic Qualifiers: Diabetes mellitus type: type 2 Diabetes mellitus watcher [employer] insulin use: with watcher [employer] use Diabetes mellitus complication status: with other specified complication Qualified Code(s): E11.69 - Type 2 diabetes mellitus with other specified complication Category: Medical Code(s): E11.9 - Type 2 diabetes mellitus without complications (6) Hypertension Status: Chronic Qualifiers: Hypertension type: essential hypertension Qualified Code(s): I10 - Essential (primary) hypertension Category: Medical Code(s): I10 - Essential (primary) hypertension (7) Lumbar radiculopathy Status: Chronic Category: Medical Code(s): M54.16 - Radiculopathy, lumbar region (8) Morbid obesity Status: Chronic Category: Medical Code(s): E66.01 - Morbid (severe) obesity due to excess calories (9) Neuropathy Status: Chronic Category: Medical Code(s): G62.9 - Polyneuropathy, unspecified - Assessment and plan all Dx Assessment and Plan for all problems:: We will uptitrate patient's gabapentin and offer supplemental Dilaudid for her extreme pain. We will observe the patient closely. We will ask pain management for further input
--- NOTE | 2022-02-12 14:55 | PC.NURSE ---
PT IS SLEEPING AT THIS TIME. MEDICATED PER MAR FOR DISCOMFORT. PT STATES SHE ONLY GETS PAIN RELIEF WITH IV DILAUDID. PT HAS BEEN AMBULATING TO THE BATHROOM AND AMBULATED TO THE VENDING MACHINE THIS SHIFT. LUNG SOUNDS CLEAR. ABDOMEN SOFT/OBESE WITH ACTIVE BOWEL SOUNDS. EATING AND DRINKING WELL. WILL CONTINUE TO MONITOR.
[2022-02-12 16:00] VITALS: BP 141/72; PULSE 70; RESP 16; TEMP 36.7; O2SAT 93
[2022-02-12 17:09] LABS: POC Glucose,Bedside 240 (70-110)
[2022-02-13 04:55] VITALS: BP 123/74; PULSE 65; RESP 20; TEMP 36.6; O2SAT 98
[2022-02-13 05:05] VITALS: BMI 47.2
--- NOTE | 2022-02-13 06:04 | PC.NURSE ---
Pt reported several times through the night that she had severe pain in her leg. She stated that hit felt that she had a hot poker against her leg. Pt administered pain medication and she stated that only the delodid would help with the pain. Pt noted ambulating in the hallway to the vending machine several times through out the night. Without pain or difficulty ambulating.
[2022-02-13 06:20] LABS: Basophils # 0.1 K/mm3 (0-0.2); Eosinophils # 0.2 K/mm3 (0.0-0.4); Eosinophils % 2.4 % (0.1-12.0); Hematocrit 39.6 % (37.0-47.0); Hemoglobin 12.8 g/dL (12.2-16.2); Lymphocytes # 2.1 K/mm3 (0.7-4.5); Lymphocytes % 24.8 % (10-50); Mean Corpuscular HGB Conc 32.3 g/dL (31.8-35.4); Mean Corpuscular Hemoglobin 28.9 pg (27.0-31.2); Mean Corpuscular Volume 89.7 fl (81-99); Mean Platelet Volume 8.7 fl (7.4-10.4); Monocytes # 0.4 K/mm3 (0.1-1.0); Monocytes % 5.3 % (1.7-9.3); Neutrophils # 5.5 K/mm3 (1.8-7.8); Neutrophils % 66.5 % (37.0-80.0); Platelet Count 222 K/mm3 (142-424); Red Blood Count 4.41 M/mm3 (4.20-5.40); Red Cell Distribution Width 13.9 % (11.5-17.5); White Blood Count 8.3 K/mm3 (4.8-10.8)
[2022-02-13 06:31] LABS: Alanine Aminotransferase 30 U/L (12-78); Albumin Level 3.3 g/dl (3.5-5.0); Alkaline Phosphatase 160 U/L (38-126); Anion Gap 8.6 mEq/L (5-15); Aspartate Amino Transferase 36 U/L (14-36); Blood Urea Nitrogen 26 mg/dl (7-17); Calcium 8.8 mg/dl (8.4-10.2); Carbon Dioxide 33 mmol/L (22.0-30.0); Chloride 95 mmol/L (98-107); Creatinine Clearance Estimated 88 mL/min (50-200); Estimated Glomerular Filt Rate 88 ml/min (>60); GFR (African American) 106 ML/MIN (>60); Globulin 3.3 g/dL (1.3-3.2); Glucose 359 mg/dl (74-100); Potassium 4.6 mmoL/L (3.5-5.1); Sodium 132 mmol/L (136-145); Total Protein,Serum 6.6 g/dl (6.3-8.2)
[2022-02-13 06:52] LABS: Bilirubin,Total < 0.1 mg/dl (0.2-1.3)
[2022-02-13 08:00] VITALS: BP 129/52; PULSE 70; RESP 16; TEMP 36.6; O2SAT 94
--- NOTE | 2022-02-13 09:55 | HMH.DCSUM ---
General - General Admission date:: 02/11/22 Discharge date: 02/13/22 HPI HPI: 51-year-old female presents emergency department with right lower extremity lateral and posterior lower leg burning pain which she states has been occurring for the past several months, stating pain is worse today. Patient has no clinical concern for acute spinal cord compression today and is ambulatory in the emergency department and hemodynamically stable. Patient has not had fever or other constitutional symptoms and has not had acute trauma to the lower extremity. Patient was given 30 mg Toradol in the emergency department as well as 1000 mg Robaxin in the emergency department, with patient pain still not well controlled and patient given 1 mg IV Dilaudid. Patient was reassessed and stated that she was still in too much pain to take care of herself at home or to drive herself home, with patient ultimately admitted for intractable pain. Patient was also found to have hyperglycemia in the emergency department without an anion gap or an acidemia, with no concern for DKA this time. 51-year-old female presents emergency department with history of right lower extremity pain which she states is burning and states on the lateral aspect of her right lower extremity lower leg as well as the posterior aspect of the lower leg and the foot, stating that this has been ongoing for at least months, with pain worse today and not relieved by lidocaine/bupivacaine/steroid injections at the SI joint earlier today. Patient denies fevers, vomiting, diarrhea, dysuria saddle anesthesia, urinary or bowel incontinence, inability to ambulate, back pain, trauma or chest or abdominal pain or any other constitutional symptoms. Patient states that she takes gabapentin states that she has a Dilaudid pain pump but states that these things have not helped her pain. Patient states that she next has her Dilaudid pain pump refilled in March 2022. Patient states that she does not have one to drive her home. Patient states that she is allergic to ibuprofen but states that she does not have a problem with Toradol stating that she has had this in the past. Patient denies recreational drug use. above from ER physician Patient is followed in our office by Khurram Chanel. Patient has a history of diabetes, has never been in DKA. Her blood sugar was 400 this morning. Patient has had the Dilaudid pump for approximately 2 years. She is status post total knee replacement bilaterally. Ketones negative acetone negative, no mentation changes Hospital Course Hospital Course: pt has ongoing pain which has improved - pt with pain pump - pt will see dr hudson as out patient - pt also has diabetes and glu has improved - pt with recent steroid injection - pt tolerating diet and activity at this time - Objective Vital signs: Temp Pulse Resp BP Pulse Ox 97.9 F 70 16 129/52 L 94 L 02/13/22 08:00 02/13/22 08:00 02/13/22 08:00 02/13/22 08:00 02/13/22 08:00 no acute distress, obese - *Routine HEENT Exam Head: Present: normocephalic Eye: Present: EOMI, PERRL ENT: Present: mucous membranes moist - *Routine Neck Exam Absent: JVD - *Routine Respiratory Exam Present: CTA bilaterally - *Routine Cardiovascular Exam Present: RRR - *Routine Abdominal Exam Present: soft - *Routine Extremities Exam Present: normal capillary refill. Absent: calf tenderness - *Routine Skin Exam Present: intact - *Routine Neurological Exam Present: alert, CN II-XII intact - Routine Psychiatric Exam Present: normal affect Results Labs on day of discharge: Labs from last 24 hours 02/13/22 02/13/22 02/12/22 06:02 06:02 16:41 WBC 8.3 RBC 4.41 Hgb 12.8 Hct 39.6 MCV 89.7 MCH 28.9 MCHC 32.3 RDW 13.9 Plt Count 222 MPV 8.7 Neut % (Auto) 66.5 Lymph % (Auto) 24.8 [place] % (Auto) 5.3 Eos % (Auto) 2.4 Baso % (Auto) 1.0 Neut # (Auto)
--- NOTE | 2022-02-13 10:50 | PC.NURSE ---
Pt has discharge orders but is unable to find a ride home to [place]. She has a vehicle in the parking lot and wishes to drive herself home. Percocet / was given this morning around 9:30. Paged Dr. Amador regarding the issue.
--- NOTE | 2022-02-13 11:17 | PC.NURSE ---
Dr. Amador gives the ok for pt to drive herself home
--- NOTE | 2022-02-15 14:42 | CARE MANAGER ---
Contacted patient related to hospital discharge follow up. Patient states she is doing well and denies questions or concerns.
== END 2022-02-13 11:27 | disposition home or self-care (01) ==
LOC: ER 04:06 → 2ND 07:38
PROVIDERS: Family Medicine; Admitting Provider Internal Medicine Adolescent Medicine; Emergency Provider Student in an Organized Health Care Education/Training Program; PCP Nurse Practitioner Family; Visit Provider Emergency Medicine
DX: E11.65 Type 2 diabetes mellitus with hyperglycemia (principal); I10 Essential (primary) hypertension; Z79.4 Long term (current) use of insulin; M47.816 Spondylosis without myelopathy or radiculopathy, lumbar region; M79.661 Pain in right lower leg; Z20.822 Contact with and (suspected) exposure to COVID-19; E11.40 Type 2 diabetes mellitus with diabetic neuropathy, unspecified; Z79.899 Other long term (current) drug therapy; E03.9 Hypothyroidism, unspecified
CPT/HCPCS: G0378; 36415; 80053; 81001; 82009; 82803; 82962; 85025; 93970; 96372; 96375; 96376; 99285; C9803; U0003; U0005

== ENCOUNTER → 2022-02-22 15:54 | Outpatient (CLI) | payer MEDICARE, OTHER, SELFPAY ==
[2022-02-22 17:44] LABS: Hemoglobin A1C 8.9 % (4.0-6.0)
== END ==
PROVIDERS: PCP Nurse Practitioner Family; Visit Provider Nurse Practitioner Family
DX: E11.9 Type 2 diabetes mellitus without complications (principal); Z79.4 Long term (current) use of insulin
CPT/HCPCS: 83036

== ENCOUNTER → 2022-04-06 09:46 | Outpatient (CLI) | payer MEDICARE, OTHER, SELFPAY ==
--- NOTE | 2022-04-06 09:49 | XR_ITS ---
FINAL REPORT CLINICAL HISTORY: knee pain FINDINGS: RIGHT KNEE Three views of the right knee reveal postoperative changes from knee arthroplasty. There is no evidence of joint effusion. There are calcifications superior to the patella which may represent loose bodies versus soft tissue calcifications. There are also calcifications inferior to the patella which are worrisome for loose bodies. IMPRESSION: Calcifications superior to the patella, loose bodies versus soft tissue calcifications. Calcifications inferior to patella, worrisome for loose bodies. Reviewed, Interpreted and Dictated by Lazaro Urbano III, MD Transcribed by Leanne Hernandez Authenticated and [facility]
== END ==
PROVIDERS: PCP Emergency Medicine; Visit Provider Nurse Practitioner Family
DX: M25.561 Pain in right knee (principal)
CPT/HCPCS: 73562

== ENCOUNTER 2022-04-29 13:25 | Emergency (ER) | payer MEDICARE, OTHER, SELFPAY ==
[2022-04-29 13:26] VITALS: BP 184/72; PULSE 85; RESP 16; TEMP 37; O2SAT 98; BMI 42.7
--- NOTE | 2022-04-29 14:31 | PC.NURSE ---
pt given some ice chips
--- NOTE | 2022-04-29 14:35 | HMH.EDGENADL ---
ED Disposition Clinical Impression: Lumbar radiculopathy, acute Disposition: Home, Self-Care Condition on Discharge: Fair Additional Instructions: Highly recommended that you talk with your pain team to continue to get a MRI and recommend giving them a call on Sunday or their service line in order to adjust some of your medications. Referrals: Faustino Amador MD [Primary Care Provider] - - Critical Care Critical Care Time: No Attestation: On 04/29/22, the high probability of a clinically significant, sudden or life threatening deterioration of the following system(s) required my full and direct attention, intervention and personal management. The time I documented below is in addition to time spent performing reported procedures but includes the following listed in this critical care notation. Medical Decision Making - Sukhjinder Inquiry Pt receiving controlled substance: Yes Sukhjinder was queried for this patient: No Risks and benefits of using a controlled substance: were discussed with pt by me Vital Signs: 04/29/22 13:26 04/29/22 14:53 04/29/22 16:12 Temperature 98.6 F 98 F Temperature Source Oral Oral Pulse Rate 79 78 Pulse Rate [Radial] 85 Respiratory Rate 16 16 Blood Pressure 139/49 L 134/64 Blood Pressure [Right Arm] 184/72 H Blood Pressure Mean [Right Arm] 109 Blood Pressure Position Sitting Blood Pressure Position [Right Arm] Sitting 02 Sat by Pulse Oximetry 98 Oxygen Delivery Method Room Air Room Air Oxygen Flow Rate (LPM) 93 Orders (Tests/Meds): ED MEDICATIONS Discontinued Medications Generic Name Dose Route Start Last Admin Trade Name Freq PRN Reason Stop Dose Admin Cyclobenzaprine HCl 10 mg 04/29/22 14:44 04/29/22 14:55 Cyclobenzaprine 10mg Tablet PO 04/29/22 14:45 10 mg ONCE ONE Administration Oxycodone HCl 5 mg 04/29/22 14:44 04/29/22 14:55 Oxycodone 5mg Immediate Release Tablet PO 04/29/22 14:45 5 mg ONCE STA Administration Medical Decision Narrative: And reviewed is a 52-year-old female who presents with back and leg pain. Hemodynamically stable and nontoxic-appearing. Patient is tender to palpation over her right greater trochanter but there is also pain that goes down past her knee which is more consistent with a lumbar radiculopathy. She is on essentially any medication that can be used to treat her lumbar radiculopathy in addition to her Dilaudid pain pump. She is already in the process of getting an MRI. I did give her a dose of oxycodone and Flexeril here to see if this would help to improve her symptoms at all and see if this could break her cycle but I talked to her that she needs to follow-up closely with her pain management team in order to get this properly cared for and she needs to follow-up on this MRI to evaluate for lumbar stenosis. She voiced understanding of this. At this point with no red flag signs this patient is stable for discharge. Return precautions given. General Adult HPI - General Chief complaint: PAIN Stated complaint: right side hip/leg pain, no accident Time Seen by Provider: 04/29/22 14:00 Mode of Arrival: Ambulatory Limitations: No Limitations Description of Symptoms (Recalled from ER Triage Doc. by RN): to ed per pvt car with c/o rt leg pain burning pain x 4 days. pt with hx of same sees pain spec and has a pain pump with dilaudid. pt states they are working on getting a MRI scheduled . states she took tylenol 1 hour ago - History of Present Illness HPI narrative: Patient is a 52-year-old female with a substantial past medical history of lumbar pain and radiculopathy who presents with right hip pain and burning into her right leg. She says that she has a pain pump but over the last 4 days has had substantial right hip pain that seems to be radiating down to her foot. She says she is having a harder time ambulating. She says that she was evaluated by her home health nurse who fills her pain pump
--- NOTE | 2022-04-29 14:42 | PC.NURSE ---
ED MD AT BEDSIDE TO EVALUATE PT
[2022-04-29 14:53] VITALS: BP 139/49; PULSE 79
--- NOTE | 2022-04-29 15:35 | PC.NURSE ---
pt states her legs are hurting, i advised nurse and
--- NOTE | 2022-04-29 15:53 | PC.NURSE ---
pt continuing to c/o pain md aware
[2022-04-29 16:12] VITALS: BP 134/64; PULSE 78; RESP 16; TEMP 36.6; O2SAT 98
== END 2022-04-29 16:16 | disposition home or self-care (01) ==
PROVIDERS: Emergency Provider Student in an Organized Health Care Education/Training Program; PCP Emergency Medicine
DX: M54.16 Radiculopathy, lumbar region (principal)
CPT/HCPCS: 99283

== ENCOUNTER → 2022-05-04 13:36 | Outpatient (POV) | payer MEDICARE, OTHER, SELFPAY ==
[2022-05-04 13:39] VITALS: BMI 42.4
--- NOTE | 2022-05-04 13:56 | HMH.PMPROC ---
- Procedure Date: 05/04/22 Time: 13:56 Anesthesiologist:: Renae Rey APRN Complications:: None Pre-procedure Diagnosis:: Right sacroiliitis, right trochanteric bursitis, degenerative disc disease of lumbar spine with lumbar radiculopathy, facet arthropathy Post-procedure Diagnosis:: Same Indications for Procedure:: Patient is a pleasant 52-year-old female who presents today for follow-up. We currently treat the patient for degenerative disc disease of lumbar spine with lumbar radiculopathy symptoms, facet arthropathy, right sacroiliitis, right trochanteric bursitis. Today she is rating her pain a 9 out of 10. She states her pain is in her right lower extremity and has been going on for the last 2 weeks. She describes this as a burning sensation that radiates all the way to her foot. Patient denies any new trauma or injury to the site. We have tried injective therapy in the past including a right SI and right bursa injection. The patient states that she did not get significant relief from these injections. We are currently managing her with an intrathecal pain pump on home refills. We have increased her pump dosage during the last home refills with no improvement of her symptoms. Patient states that she is worried something is wrong with her spine and would like updated imaging. Patient is currently on gabapentin 400 mg 4 times a day that is prescribed by Dr. Boone. Her Sukhjinder is [phone]. It has been reviewed and appropriate. Procedure Details:: Informed consent was obtained and the risk and benefits of the procedure were explained to the patient. Patient was taken to the procedure room where noninvasive monitoring was placed including noninvasive blood pressure cuff and pulse oximeter. Patient's pump was interrogated and given a 10% bolus of Dilaudid 0.5 mg]. The patient tolerated the procedure well with no complications. Plan and Disposition:: Patient is having significant pain in her low back that radiates to her right leg to her foot. I will order updated MRI imaging of her lumbar spine. I will also order a prescription of diclofenac and prednisone along with tizanidine 4 mg at bedtime. We will see the patient back in the clinic in 2 weeks. Patient has been instructed to contact the clinic with any concerns before the next appointment. Dr. Goddard has reviewed this note and agrees with this plan of care. This note was dictated using voice recognition software and make contain errors or omissions. -- It Is medically necessary for this patient to continue to have their intrathecal pump refilled at regular intervals. This patient had an intrathecal pain pump implanted after meeting criteria of chronic intractable pain for greater than 3 months and failing conservative treatments. Patient has committed and been compliant to the treatment plan and all planned follow up care. Since implantation of the intrathecal pain pump, the patient has had decreased pain and been more functional. Oral medications have been reduced including intake of oral opioids. Patient continues to do well with intrathecal therapy with decrease in pain symptoms and increase in functional status. Stopping intrathecal medications can lead to life threatening withdrawal, seizures, cardiac arrest, severe pain, and possible . Pumps that are not refilled at regular intervals can be damages and cause and need for replacement. We continually titrate dose and concentration to optimize pain relief and function. We are limited in concentration for certain drugs to safely deliver medications through the pump and stay within the recommendations from the Polyan[employer] Consensus [employer] Guidelines. Depending on dose and concentration these pumps may need to be refilled sooner than 3 months as we titrate.
== END ==
PROVIDERS: PCP Emergency Medicine; Visit Provider Student in an Organized Health Care Education/Training Program
DX: M51.16 Intervertebral disc disorders with radiculopathy, lumbar region (principal); M47.26 Other spondylosis with radiculopathy, lumbar region; M46.1 Sacroiliitis, not elsewhere classified; M70.61 Trochanteric bursitis, right hip
CPT/HCPCS: 62368; 99212; G0463

== ENCOUNTER 2022-05-08 09:15 | Emergency (ER) | payer MEDICARE, OTHER, SELFPAY ==
[2022-05-08 09:20] VITALS: BP 177/70; PULSE 77; RESP 18; TEMP 36.9; O2SAT 98; BMI 42.7
[2022-05-08 09:22] VITALS: BP 177/70; PULSE 80; O2SAT 98
[2022-05-08 09:31] VITALS: BP 171/68; PULSE 75; O2SAT 96
--- NOTE | 2022-05-08 09:40 | PC.NURSE ---
pt ambulated to restroom with use of her cane at this time
--- NOTE | 2022-05-08 09:41 | PC.NURSE ---
Pt up and walked to bathroom.
--- NOTE | 2022-05-08 09:49 | PC.NURSE ---
pt unable to get ride for after administration of morphine. aware
--- NOTE | 2022-05-08 09:59 | PC.NURSE ---
PT states that she has a ride that will be here in 20 minutes
[2022-05-08 10:00] VITALS: BP 163/65; PULSE 80; O2SAT 97
--- NOTE | 2022-05-08 10:00 | PC.NURSE ---
pt refused blanket at this time, turned light down for pt comfort at this time
--- NOTE | 2022-05-08 10:07 | PC.NURSE ---
pt given a diet pepsi
--- NOTE | 2022-05-08 10:09 | HMH.EDGENADL ---
ED Disposition Clinical Impression: Lumbar radiculopathy, acute, Chronic pain disorder Disposition: Home, Self-Care Condition on Discharge: Good Instructions: DI for Chronic Pain -- Adult Referrals: Faustino Amador MD [Primary Care Provider] - - Critical Care Critical Care Time: No Attestation: On 05/08/22, the high probability of a clinically significant, sudden or life threatening deterioration of the following system(s) required my full and direct attention, intervention and personal management. The time I documented below is in addition to time spent performing reported procedures but includes the following listed in this critical care notation. Medical Decision Making - Medical Records Medical records reviewed: Yes: I reviewed the patient's medical records. - Sukhjinder Inquiry Pt receiving controlled substance: Yes Sukhjinder was queried for this patient: Yes Reference #:: [id number] Risks and benefits of using a controlled substance: were discussed with pt by me Vital Signs: 05/08/22 09:20 05/08/22 09:22 05/08/22 09:31 Temperature 98.4 F Temperature Source Oral Pulse Rate 80 75 Pulse Rate [Left Radial] 77 Respiratory Rate 18 Blood Pressure 177/70 H 171/68 H Blood Pressure [Right Arm] 177/70 H Blood Pressure Mean 105 102 Blood Pressure Mean [Right Arm] 105 Blood Pressure Source [Right Arm] Automatic Cuff Blood Pressure Position [Right Arm] Sitting 02 Sat by Pulse Oximetry 98 98 96 Oxygen Delivery Method Room Air 05/08/22 10:00 Temperature Temperature Source Pulse Rate 80 Pulse Rate [Left Radial] Respiratory Rate Blood Pressure 163/65 H Blood Pressure [Right Arm] Blood Pressure Mean 97 Blood Pressure Mean [Right Arm] Blood Pressure Source [Right Arm] Blood Pressure Position [Right Arm] 02 Sat by Pulse Oximetry 97 Oxygen Delivery Method Orders (Tests/Meds): ED MEDICATIONS Discontinued Medications Generic Name Dose Route Start Last Admin Trade Name Freq PRN Reason Stop Dose Admin Morphine Sulfate 4 mg 05/08/22 09:39 05/08/22 09:44 Morphine 2mg/Ml Syringe IM 05/08/22 09:40 Not Given ONCE ONE Morphine Sulfate 4 mg 05/08/22 09:43 05/08/22 09:52 Morphine 4mg/Ml Syringe IV 05/08/22 09:44 4 mg ONCE ONE Administration Ondansetron HCl 4 mg 05/08/22 09:39 05/08/22 09:58 Ondansetron 4mg Odt SL 05/08/22 09:40 4 mg ONCE ONE Administration - Reevaluation(s) Time: 10:21 Reevaluation #1: On reevaluation, patient is feeling better. Repeat exam does not show any neurologic deficits. There is no evidence of spinal cord compression. Patient will follow up with primary pain management. She is to maintain her appointment for MRI on . Given strict return precautions. Verbalized understanding. Medical Decision Narrative: 52-year-old female presented to the emergency department with some lower back pain. The patient's symptoms are consistent with sciatica. This appears to be an acute exacerbation of her chronic pain. The patient does take significant amount of controlled substance already. Sukhjinder was reviewed on the patient. I did offer him symptomatic treatment while in the emergency department, however I would not be able to prescribe controlled substances as an outpatient. General Adult HPI - General Chief complaint: PAIN Stated complaint: Burning sensation from hip to toes Time Seen by Provider: 05/08/22 09:25 Mode of Arrival: Wheelchair Limitations: No Limitations Description of Symptoms (Recalled from ER Triage Doc. by RN): c/o right hip burning that travels to her toes that started 5 months ago. Pt states she has seen Dr. Goddard for this issue last with no improvement. States depending on the day it hurts worse than others. - History of Present Illness HPI narrative: 52-year-old female presented to the emergency department with some back pain. Patient has a longstanding history of chronic back pa
--- NOTE | 2022-05-08 10:10 | PC.NURSE ---
angela romero bs, aware
--- NOTE | 2022-05-08 10:22 | PC.NURSE ---
pt updated that MD will be to get her paperwork in and then she can go. PT states that her pain has improved some
[2022-05-08 10:28] VITALS: BP 163/65; PULSE 73; RESP 18; TEMP 36.7; O2SAT 96
== END 2022-05-08 10:30 | disposition home or self-care (01) ==
PROVIDERS: Emergency Provider Emergency Medicine; PCP Emergency Medicine
DX: E11.610 Type 2 diabetes mellitus with diabetic neuropathic arthropathy (principal); M54.17 Radiculopathy, lumbosacral region; M47.9 Spondylosis, unspecified; D64.9 Anemia, unspecified; I11.0 Hypertensive heart disease with heart failure; I50.9 Heart failure, unspecified; I25.10 Atherosclerotic heart disease of native coronary artery without angina pectoris; J21.9 Acute bronchiolitis, unspecified; E78.5 Hyperlipidemia, unspecified; E03.9 Hypothyroidism, unspecified; G43.909 Migraine, unspecified, not intractable, without status migrainosus; M19.90 Unspecified osteoarthritis, unspecified site; J44.9 Chronic obstructive pulmonary disease, unspecified; F32.A Depression, unspecified; F41.9 Anxiety disorder, unspecified; Z79.52 Long term (current) use of systemic steroids; Z79.4 Long term (current) use of insulin; Z99.81 Dependence on supplemental oxygen; Z79.899 Other long term (current) drug therapy; Z88.8 Allergy status to other drugs, medicaments and biological substances; Z87.891 Personal history of nicotine dependence; Z86.711 Personal history of pulmonary embolism; Z82.49 Family history of ischemic heart disease and other diseases of the circulatory system; Z83.438 Family history of other disorder of lipoprotein metabolism and other lipidemia; Z83.3 Family history of diabetes mellitus; Z80.9 Family history of malignant neoplasm, unspecified
CPT/HCPCS: 96372; 96374; 99284

== ENCOUNTER → 2022-05-18 10:49 | Outpatient (POV) | payer MEDICARE, OTHER, SELFPAY ==
[2022-05-18 11:11] VITALS: BP 159/83; PULSE 78; RESP 20; BMI 42.7
--- NOTE | 2022-05-18 12:37 | HMH.PMPROC ---
- Procedure Date: 05/18/22 Time: 12:37 Anesthesiologist:: FLORES Hinkle Complications:: None Pre-procedure Diagnosis:: Degenerative disease of lumbar spine with lumbar radiculopathy symptoms, facet arthropathy, lumbar spondylosis, right-sided sacroiliitis, right-sided greater trochanteric bursitis Post-procedure Diagnosis:: Same Indications for Procedure:: Patient is a pleasant 52-year-old female who presents today for follow-up. Patient has been having worsening right hip pain that starts around her right upper buttock and radiates down to her right leg. Denies any recent falls or traumas. We have been managing this patient with an intrathecal pain pump Dilaudid 10 mg/mL at a rate of 5.4 mg/day and bupivacaine 5 mg/mL at a rate of 2.7 mg. She denies any side effects from these medications. In regards to her pain, she cannot tolerate any prolonged activities such as sitting, standing, and walking. She has been having trouble getting up from a sitting position. When we saw her last time, we tried to order a lumbar MRI but this was denied by insurance. We also started her on diclofenac, prednisone and tizanidine. She says that the prednisone helped temporarily. She says that the diclofenac and tizanidine are providing some relief and is wanting refills today. In the past, patient has done well with SI injections and greater trochanteric bursa injections. Her last SI and greater trochanteric bursa injection was in January 2022. She rates her pain as 9 out of 10. For pain, she is also prescribed gabapentin 400 mg 4 times a day by Dr. Boone. She says that this medication is not helping her radicular pain. [facility] [phone] with an active morphine equivalent of 0. Physical Exam: General: Alert and oriented x3, no acute distress, pleasant and cooperative Lungs: Respirations even and unlabored, symmetrical chest expansion Eyes: PERRL Musculoskeletal: Flexion and extension of lumbar [spine] somewhat guarded secondary to pain, [antalgic gait noted]; right SI positive for MICHOACANO, Sally's, Edwards's, Gaenslen's, compression, and distraction. Tender to palpation right greater trochanteric bursa Neurological: Speech clear, no gross sensory deficit Procedure Details:: Informed consent was obtained and the risk and benefits of the procedure were explained to the patient. Patient was taken to the procedure room where noninvasive monitoring was placed including noninvasive blood pressure cuff and pulse oximeter. Patient's pump was interrogated and was increased to Dilaudid 5.7 mg/day. The patient tolerated the procedure well with no complications. Plan and Disposition:: Patient has been having worsening right hip pain that radiates down to her right leg and foot. Patient has tried and failed conservative therapies in the past such as physical therapy and home exercises for greater than 6 weeks. She does not want to redo physical therapy since it only provided minimal relief. It also aggravated her symptoms. Due to her increasing low back pain that radiates to her right lower extremity, we will obtain an updated lumbar MRI. On exam, patient is tender to palpation around the right SI joint and right greater trochanteric bursa. Patient does have positive SI exam. We will schedule the patient for a right SI and right greater trochanteric bursa injections. We will continue the patient's diclofenac 75 mg twice a day and tizanidine 4 mg at bedtime. I will provide the patient with 1 month worth of refill. I have discussed with the patient that she needs to take the diclofenac with meals every time. We will see the patient back in the clinic at the next intrathecal refill. Patient has been instructed to contact the clinic with any concerns before the next appointment. Dr. Goddard has reviewed this note and agrees with this plan of care. This note was dictated using voice recognition software and make contain errors or omissions. -- It is medically n
== END ==
PROVIDERS: PCP Emergency Medicine; Visit Provider Student in an Organized Health Care Education/Training Program
DX: M51.16 Intervertebral disc disorders with radiculopathy, lumbar region (principal); M47.26 Other spondylosis with radiculopathy, lumbar region; M70.61 Trochanteric bursitis, right hip; M46.1 Sacroiliitis, not elsewhere classified
CPT/HCPCS: 62368

== ENCOUNTER 2022-05-26 19:10 | Emergency (ER) | payer MEDICARE, OTHER, SELFPAY ==
[2022-05-26 19:54] VITALS: BP 0/0; PULSE 0; RESP 0; TEMP -17.7; TEMP 0
== END 2022-05-26 19:55 | disposition left against medical advice (07) ==
LOC: ER 19:43
PROVIDERS: Emergency Provider Emergency Medicine; PCP Emergency Medicine
DX: S45.90 Unspecified injury of unspecified blood vessel at shoulder and upper arm level (principal); M47.816 Spondylosis without myelopathy or radiculopathy, lumbar region; E11.610 Type 2 diabetes mellitus with diabetic neuropathic arthropathy; Z53.21 Procedure and treatment not carried out due to patient leaving prior to being seen by health care provider; Z79.4 Long term (current) use of insulin; Z79.52 Long term (current) use of systemic steroids; Z88.8 Allergy status to other drugs, medicaments and biological substances; Z87.891 Personal history of nicotine dependence
CPT/HCPCS: 99211

== ENCOUNTER 2022-06-04 21:06 | Emergency (ER) | payer MEDICARE, OTHER, SELFPAY ==
[2022-06-04 22:25] VITALS: BP 174/98; PULSE 81; RESP 18; TEMP 36.9; O2SAT 97; BMI 42.7
[2022-06-05 00:03] LABS: Basophils # 0.1 K/mm3 (0-0.2); Basophils % 0.5 % (0.1-2.0); Eosinophils # 0.5 K/mm3 (0.0-0.4); Eosinophils % 3.9 % (0.1-12.0); Hematocrit 32.5 % (37.0-47.0); Hemoglobin 10.2 g/dL (12.2-16.2); Lymphocytes # 2.1 K/mm3 (0.7-4.5); Lymphocytes % 17.1 % (10-50); Mean Corpuscular HGB Conc 31.5 g/dL (31.8-35.4); Mean Corpuscular Hemoglobin 28.4 pg (27.0-31.2); Mean Corpuscular Volume 90.3 fl (81-99); Monocytes # 0.7 K/mm3 (0.1-1.0); Monocytes % 5.7 % (1.7-9.3); Neutrophils # 8.9 K/mm3 (1.8-7.8); Neutrophils % 72.9 % (37.0-80.0); Platelet Count 405 K/mm3 (142-424); White Blood Count 12.2 K/mm3 (4.8-10.8)
--- NOTE | 2022-06-05 00:15 | PC.NURSE ---
blood drawn from the pt via straight stick
[2022-06-05 00:52] LABS: Alanine Aminotransferase 36 U/L (12-78); Albumin Level 3.2 g/dl (3.5-5.0); Albumin/Globulin Ratio 0.9 (1.1-1.8); Alkaline Phosphatase 236 U/L (38-126); Anion Gap 7.5 mEq/L (5-15); Aspartate Amino Transferase 37 U/L (14-36); Blood Urea Nitrogen 20 mg/dl (7-17); Calcium 8.8 mg/dl (8.4-10.2); Carbon Dioxide 28 mmol/L (22.0-30.0); Chloride 103 mmol/L (98-107); Creatinine Clearance Estimated 122 mL/min (50-200); Estimated Glomerular Filt Rate 129 ml/min (>60); GFR (African American) 156 ML/MIN (>60); Globulin 3.4 g/dL (1.3-3.2); Glucose 299 mg/dl (74-100); Potassium 4.5 mmoL/L (3.5-5.1); Sodium 134 mmol/L (136-145); Total Protein,Serum 6.6 g/dl (6.3-8.2)
[2022-06-05 00:58] LABS: C-Reactive Protein 39.4 mg/L (0-4)
--- NOTE | 2022-06-05 01:00 | PC.NURSE ---
pt arms rebandaged bilaterally
[2022-06-05 01:03] LABS: Bilirubin,Total < 0.1 mg/dl (0.2-1.3)
[2022-06-05 01:04] LABS: Erythrocyte Sedimentation Rate 132 mm/hr (0-30)
--- NOTE | 2022-06-05 01:23 | PC.NURSE ---
Addendum entered by VALERIE Mckeon 06/05/22 01:26: Dr. Landa furnace converter for plastic surgery, call returned at this time Original Note: [facility] contacted for [facility] ED doctor to speak to furnace converter plastic surgery, Dr. Olivarez furnace converter
--- NOTE | 2022-06-05 01:39 | HMH.EDGENADL ---
Discharge Plan Disposition Patient Disposition: Home, Self-Care Condition: Good Prescriptions Prescriptions: New sulfamethoxazole-trimethoprim [Bactrim DS] 800-160 mg tablet 1 tab PO BID 10 Days Qty: 20 0RF No Action gabapentin 400 mg capsule 400 mg PO QID Qty: 120 5RF carvedilol 25 mg tablet 25 mg PO BID 90 Days Qty: 180 0RF duloxetine 60 mg capsule,delayed release(DR/EC) 60 mg PO DAILY Qty: 90 0RF escitalopram oxalate 20 mg tablet 20 mg PO DAILY Qty: 90 0RF fenofibrate 54 mg tablet 54 mg PO DAILY Qty: 90 0RF furosemide [Lasix] 80 mg tablet 80 mg PO BID Qty: 180 0RF isosorbide mononitrate 30 mg tablet extended release 24 hr 30 mg PO DAILY Qty: 90 0RF levothyroxine 200 mcg tablet 200 mcg PO DAILY Qty: 90 0RF lisinopril 2.5 mg tablet 2.5 mg PO DAILY Qty: 90 0RF ropinirole 3 mg tablet 3 mg PO HS Qty: 90 0RF semaglutide 0.25 mg or 0.5 mg(2 mg/1.5 mL) pen injector 0.5 mg SQ WEEKLY Qty: 1.5 3RF pantoprazole 40 mg tablet,delayed release (DR/EC) 40 mg PO DAILY Qty: 90 0RF trazodone 100 MG tablet See Rx Instructions .Route .COMPLEX Rx Instructions: TAKE 1 TABLET BY MOUTH ONCE DAILY insulin NPH and regular human 100 UNIT/ML insulin pen 60 ml SQ BID Rx Instructions: 60 UNIT (0.6 ML) SQ TWICE DAILY FOR DIABETES (DME) flash glucose sensor 1 EACH kit See Rx Instructions .Route CONT Rx Instructions: change sensor every 14 days prednisone 20 MG tablet 20 mg PO BID 5 Days Qty: 10 0RF tizanidine 4 MG tablet 4 mg PO HS 30 Days Qty: 30 1RF diclofenac sodium 75 MG tablet,delayed release (DR/EC) 75 mg PO BID 30 Days Qty: 60 1RF insulin glargine 100 UNIT/ML insulin pen 6 units SQ HS Referrals Follow up/Referrals: Faustino Amador MD [Primary Care Provider] - See instructions Activity Restrictions/Add. Instructions Additional Instructions/Restrictions: Please follow up with Dr. Leandro SILVA of [facility]. Please call the clinic [facility] and tell them you spoke with Dr. Landa who informed you to call and set up appointment for Sunday06/06/22. Please use antibiotic as prescribed. Please use wet to dry packing three times a day and keep wound clean, may wrap with joan wrap. Clinical Impressions Clinical Impression: Cellulitis Instructions Patient Instructions: Cellulitis Discharge ED Provider: Arlene Loving General Adult HPI General Chief complaint: Skin/Abscess/Foreign Body Stated complaint: surgery 05/24 , poss staple come out Time Seen by Provider: 06/04/22 21:06 Mode of Arrival: Ambulatory Source of Information: Patient Limitations: No Limitations Description of Symptoms (Recalled from ER Triage Doc. by RN): Pt had a skin removal operation to [facility] on 05/24. Pt noticed today when she was changing her dressings that a staple in her right axillary area was missing and she has a dime sized opening now. incisions have errythema present along staple borders. No foul swell present. Pt says she is using 1 abd pad per day for drainage. SX was performed at History of Present Illness HPI narrative: Mr. Delacruz is a 52 yo female w/ PMH for morbid obesity presenting to the ED for post op complication. Patient had elective skin removal from her upper arms bilaterally on 05/[address] Colmenares at plastic surgery. Patient reports over the last 24 hours she has noted the dewayne opening on her RUE and surrounding eyrthema along the staple border with a foul odor. Patient also reports swelling bilaterally. Patient denies any fevers, chills, N/V or other systemic signs of infection. Patient has appointment with surgery on . MD complaint: Post op Complication Onset (ago): day(s) Location: upper extremity Radiation: non-radiation Severity: severe Severity scale (1-10): 7 Quality: sharp Consistency: constant Relieving factors: none Exacerbating factors: movement Associated sy
[2022-06-05 01:42] VITALS: BP 174/98; PULSE 98; RESP 16; TEMP 36.7; O2SAT 100
== END 2022-06-05 01:53 | disposition home or self-care (01) ==
PROVIDERS: Emergency Provider Student in an Organized Health Care Education/Training Program; PCP Emergency Medicine
DX: L76.82 Other postprocedural complications of skin and subcutaneous tissue (principal); L03.113 Cellulitis of right upper limb; Y83.8 Other surgical procedures as the cause of abnormal reaction of the patient, or of later complication, without mention of misadventure at the time of the procedure
CPT/HCPCS: 36415; 80053; 85025; 85651; 86140; 96372; 99283

== ENCOUNTER → 2022-06-21 12:31 | Outpatient (CLI) | payer MEDICARE, OTHER, SELFPAY ==
--- NOTE | 2022-06-21 12:33 | CT_ITS ---
FINAL REPORT TECHNIQUE: Axial images were performed through the lumbar spine by computed tomography. Sagittal reconstruction images were also performed. This study was performed with techniques to keep radiation doses as low as reasonably achievable, (ALARA). Individualized dose reduction techniques using automated exposure control or adjustment of mA and/or kV according to the patient's size were employed. CLINICAL HISTORY: BACK PAIN RADIAITING DOWN RIGHT LEG TO THE TOES FINDINGS: Sagittal reconstruction images demonstrate minimal spondylolisthesis of L4 on L5 and L5 on S1. Probably due to underlying facet arthropathy. There is mild disc space narrowing at L5-S1. An intrathecal catheter is present entering the sac at the L4-L5 level. T12-L1: No significant disc bulge or protrusion. L1-L2: No significant disc bulge or protrusion. L2-L3: There is a mild diffuse disc bulge with [id number] bilateral neural foraminal narrowing. L3-L4: There is a moderate diffuse disc bulge with moderate bilateral neural foraminal narrowing. L4-L5: There is a moderate diffuse disc bulge with bilateral facet hypertrophy. There is moderate bilateral neural foraminal narrowing. L5-S1: There is a moderate diffuse disc bulge with endplate hypertrophy. There is moderate bilateral neural foraminal narrowing. IMPRESSION: Multilevel changes of degenerative disc disease with minimal spondylolisthesis of L4 on L5 and L5 on S1. Intrathecal catheter entering the thecal sac at the L4-L5 level. Degenerative changes most pronounced at L4-5 and L5-S1. Reviewed, Interpreted and Dictated by Agustin Frazier MD Transcribed by Darin Stevens Authenticated and . [facility]
== END ==
PROVIDERS: PCP Emergency Medicine; Visit Provider Nurse Practitioner Family
DX: M54.50 Low back pain, unspecified (principal)
CPT/HCPCS: 72131

== ENCOUNTER → 2022-06-26 11:05 | Outpatient (POV) | payer MEDICARE, OTHER, SELFPAY ==
--- NOTE | 2022-06-26 11:34 | EXP.PAIN.SOA ---
[facility] Pain Management SOAP Note Subjective:: Review of Systems: General: No recent weight changes, no fever, no sleep disturbances Respiratory: No cough, no shortness of air, no recurring pulmonary infections Cardiovascular/peripheral vascular: No chest pain, no palpitations, no edema, no shortness of breath Gastrointestinal: No new onset incontinence, normal bowel movements reported Genitourinary: No new onset incontinence Musculoskeletal: Low back pain, bilateral leg pain Psychiatric: [Normal mood/affect] Neurological: [Denies weakness in extremities], [denies balance issues] Objective:: Physical Exam: General: Alert and oriented x3, no acute distress, pleasant and cooperative Lungs: Respirations even and unlabored, symmetrical chest expansion Eyes: PERRL Musculoskeletal: Flexion and extension of lumbar [spine] somewhat guarded secondary to pain, [antalgic gait noted]. Extreme point tenderness at bilateral SI's and positive bilateral Izaiah's, Sally's, Gaenslen's, compression and distraction exam. Neurological: Speech clear, no gross sensory deficit [facility] CT lumbar spine without contrast 06/21/2022 Findings: Sagittal reconstruction images demonstrate minimal spondylolisthesis of L4 on L5 and L5 on S1. Probably due to underlying facet arthropathy. There is mild disc space narrowing at L5-S1. An intrathecal catheter is present entering the sac at L4-L5 level. T12-L1: No significant disc bulge or protrusion. L1-L2: No significant disc bulge or protrusion. L 2 through L3: There is mild diffuse disc bulge with mild to moderate bilateral neuroforaminal narrowing. L3-L4: There is moderate diffuse disc bulge with moderate bilateral neuroforaminal narrowing. L4-5: There is moderate diffuse disc bulge with bilateral facet hypertrophy. There is moderate bilateral neuroforaminal narrowing. L5-S1: There is moderate diffuse disc bulge with endplate hypertrophy. There is moderate bilateral neuroforaminal narrowing Impression: Multilevel changes of degenerative disc disease with minimal spondylolisthesis of L4 on L5 and L5 on S1. Intrathecal catheter entering the thecal sac at L4-L5 level. Degenerative changes most pronounced at L4-5 and L5-S1. Assessment:: Degenerative disc disease of lumbar spine with lumbar radiculopathy symptoms, facet arthropathy, lumbar spondylosis, right-sided sacroiliitis, greater trochanteric bursa right side Plan:: Patient continues to be experiencing worsening pain in her low back that radiates into her bilateral lower extremities. Patient had limited range of motion of her lumbar spine during today's visit. She also had extreme point tenderness at bilateral SI's and positive bilateral Izaiah's, Sally's, Gaenslen's, compression and distraction exam during today's visit. I have discussed with her regarding her recent denial by insurance to have bilateral SI injections. Risk and benefits of these injections have been discussed with the patient. She would like to proceed forward with these injections. In the past patient has had significant improvement of her symptoms following these injections. 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
[2022-06-26 11:43] VITALS: BP 186/64; PULSE 72; RESP 18; TEMP 36.1; O2SAT 98; BMI 45.1
--- NOTE | 2022-06-26 11:44 | EXP.PAIN.PRO ---
Procedure Date: 06/26/22 Time: 11:41 Anesthesiologist:: Renae Rey APRN Complications:: None Pre-procedure Diagnosis:: Degenerative disc disease of lumbar spine with lumbar radiculopathy symptoms, facet arthropathy, lumbar spondylosis, right-sided sacroiliitis, right-sided greater trochanteric bursitis Post-procedure Diagnosis:: Same Indications for Procedure:: Patient is a pleasant 52-year-old female who presents today for follow-up of CT of her lumbar spine. We are currently treating the patient for degenerative disc disease of lumbar spine with lumbar radiculopathy symptoms, facet arthropathy, lumbar spondylosis, right-sided sacroiliitis, right-sided greater trochanteric bursitis. Today the patient rates her pain a 8 out of 10. She states this pain is primarily in her low back that radiates into her bilateral lower extremities. Patient denies any new trauma or injury to the site. Patient denies any change to location or type of pain she experiences. Patient states this is a sharp, achy sensation that is worse with increased activity such as sitting, standing, walking. Patient is currently being managed on diclofenac, and tizanidine. She is requesting a refill of her diclofenac at today's visit. She also is managed with gabapentin 400 mg 4 times a day by Dr. Boone office. Patient denies any side effects from these medications. She states these medications do adequately help manage her pain. She is currently being managed with Dilaudid 10 mg/mL with a daily dose of 6.27 mg/day and bupivacaine 5 mg/mL with a daily dose of 3.135 mg/day. Patient denies any side effects from this medication. She states this medication does help manage her pain. We have previously tried to prescribe a compounding cream however it is not currently covered by her insurance. Her Sukhjinder is [phone]. Its been reviewed and appropriate. Physical Exam: General: Alert and oriented x3, no acute distress, pleasant and cooperative Lungs: Respirations even and unlabored, symmetrical chest expansion Eyes: PERRL Musculoskeletal: Flexion and extension of lumbar [spine] somewhat guarded secondary to pain, [antalgic gait noted]. Extreme point tenderness at bilateral SI's and positive bilateral Izaiah's, Sally's, Gaenslen's, compression and distraction exam. Neurological: Speech clear, no gross sensory deficit [facility] CT lumbar spine without contrast 06/21/2022 Findings: Sagittal reconstruction images demonstrate minimal spondylolisthesis of L4 on L5 and L5 on S1. Probably due to underlying facet arthropathy. There is mild disc space narrowing at L5-S1. An intrathecal catheter is present entering the sac at L4-L5 level. T12-L1: No significant disc bulge or protrusion. L1-L2: No significant disc bulge or protrusion. L 2 through L3: There is mild diffuse disc bulge with mild to moderate bilateral neuroforaminal narrowing. L3-L4: There is moderate diffuse disc bulge with moderate bilateral neuroforaminal narrowing. L4-5: There is moderate diffuse disc bulge with bilateral facet hypertrophy. There is moderate bilateral neuroforaminal narrowing. L5-S1: There is moderate diffuse disc bulge with endplate hypertrophy. There is moderate bilateral neuroforaminal narrowing Impression: Multilevel changes of degenerative disc disease with minimal spondylolisthesis of L4 on L5 and L5 on S1. Intrathecal catheter entering the thecal sac at L4-L5 level. Degenerative changes most pronounced at L4-5 and L5-S1. Procedure Details:: Informed consent was obtained and the risk and benefits of the procedure were explained to the patient. Patient was taken to the procedure room where noninvasive monitoring was placed including noninvasive blood pressure cuff and pulse oximeter. Patient's pump was interrogated and was reprogrammed to Dilaudid 10 mg/mL with a daily dose of 6.5835 mg/day and bupivacaine 5 mg/mL with a daily dose of 3.2918 mg/day. The patient tolerated the proc
== END | disposition home or self-care (01) ==
PROVIDERS: Visit Provider Nurse Practitioner Family
DX: M51.16 Intervertebral disc disorders with radiculopathy, lumbar region (principal); M47.26 Other spondylosis with radiculopathy, lumbar region; M46.1 Sacroiliitis, not elsewhere classified; M70.61 Trochanteric bursitis, right hip
CPT/HCPCS: 62368; 99213; G0463

== ENCOUNTER 2022-07-11 13:34 | Day surgery (SDC) | payer MEDICARE, OTHER, SELFPAY ==
[2022-07-11 14:00] VITALS: BP 139/80; PULSE 116; RESP 18; O2SAT 97; BMI 42.7
[2022-07-11 14:22] VITALS: BP 141/77; PULSE 89; RESP 18; O2SAT 97
[2022-07-11 14:23] VITALS: BP 141/77; PULSE 89; RESP 18; O2SAT 98
--- NOTE | 2022-07-11 14:35 | P.PCN_ITS ---
Procedure Date: 07/11/22 Time: 14:20 Anesthesiologist:: Niraj Rodriguez CRNA Complications:: None Pre-procedure Diagnosis:: Bilateral sacroiliitis. Degenerative disc disease lumbar spine multilevels. Lumbar radiculopathy symptoms. Lumbar spondylosis. Lumbar facet arthropathy. Post-procedure Diagnosis:: Same. Indications for Procedure:: Patient is a pleasant 52-year-old female that comes our clinic today for bilateral SI joint injections. We are currently managing patient with intrath ecal pain pump. Currently being managed with Dilaudid 10 mg/mL at a daily dose of 6.27 mg/day and bupivacaine 5 mg/mL with a daily dose of 3.135 mg/day. Procedure Details:: Procedure: Bilateral sacroiliac joint injections under fluoroscopy Informed consent was obtained and the risks and benefits of the procedure were explained to the patient.~ The patient was taken to the procedure room and noninvasive monitors were placed including a noninvasive blood pressure cuff and pulse oximeter.~ The patient was placed prone on the procedure table. Both hips were cleansed using Betadine as a cleansing solution. C-arm fluoroscopy was used to view the right sacroiliac joint.~ The skin and subcutaneous tissues were anesthetized using lidocaine 1.5% and a 25-gauge needle.~ After this, a 22-gauge spinal needle was inserted under fluoroscopic guidance into the inferior aspect of the right sacroiliac joint.~ Omnipaque dye was injected and good spread was seen throughout the joint.~ After this, approximately 5 mL of bupivacaine, 0.25% and Depo-Medrol, 40 mg was incrementally injected into the right sacroiliac joint. We then moved to the left sacroiliac joint.~ The skin and subcutaneous tissues were anesthetized using lidocaine 1.5% and a 25-gauge needle.~ After this, a 22- gauge spinal needle was inserted under fluoroscopic guidance into the inferior aspect of the left sacroiliac joint.~ Omnipaque dye was injected and good spread was seen throughout the joint. After this, approximately 5 mL of bupivacaine, 0.25% and Depo-Medrol, 40 mg was incrementally injected into the left sacroiliac joint.~ The patient tolerated the procedure well with no complications. The patient was observed in the Pain Clinic and then was discharged home neurologically intact. Plan and Disposition:: Patient was discharged without incident
[2022-07-11 14:40] VITALS: BP 153/74; PULSE 78; RESP 18; O2SAT 98
== END 2022-07-11 14:40 | disposition home or self-care (01) ==
PROVIDERS: PCP Emergency Medicine; Visit Provider Nurse Anesthetist, Certified Registered
DX: M51.16 Intervertebral disc disorders with radiculopathy, lumbar region (principal); M47.26 Other spondylosis with radiculopathy, lumbar region; M46.1 Sacroiliitis, not elsewhere classified
CPT/HCPCS: 27096; G0260; J1030

== ENCOUNTER → 2022-07-27 10:15 | Outpatient (POV) | payer MEDICARE, OTHER, SELFPAY ==
--- NOTE | 2022-07-27 10:41 | EXP.PAIN.PRO ---
Procedure Date: 07/27/22 Time: 10:48 Anesthesiologist:: Renae Rey APRN Complications:: None Pre-procedure Diagnosis:: Degenerative disc disease of lumbar spine with lumbar radiculopathy symptoms, lumbar facet arthropathy, lumbar spondylosis, right-sided sacroiliitis, right-sided greater trochanteric bursitis Post-procedure Diagnosis:: Same Indications for Procedure:: Patient is a pleasant 52-year-old female who presents today for intrathecal pain pump reprogramming adjustment. The patient is being treated for degenerative disc disease of lumbar spine with lumbar radiculopathy symptoms, lumbar facet arthropathy, lumbar spondylosis, right-sided sacroiliitis, right-sided greater trochanteric bursitis. Patient is currently being managed with Dilaudid 10 mg/mL with a daily dose of 6.5835 mg/day and bupivacaine 7.5 mg/mL with a daily dose of 4.9376 mg/day. Patient denies any side effects from this medication. Patient rates pain a 9 out of 10. Patient is currently managed with gabapentin 400 mg 4 times a day by Dr. Boone's office. Patient denies any side effects from these medications. She states these medications do help manage her pain symptoms. Patient was previously denied for lumbar MRI imaging and would like to try again to submit this to insurance. Drug screen is appropriate. [facility] [phone] has been reviewed and is appropriate. Physical exam General: Alert and oriented x3, no acute distress, pleasant and cooperative Lungs: Respirations even and unlabored, symmetrical chest expansion Eyes: PERRL Musculoskeletal: Flexion and extension of lumbar [spine] somewhat guarded secondary to pain, [antalgic gait noted] Neurological: Speech clear, no gross sensory deficit FINDINGS: Sagittal reconstruction images demonstrate minimal spondylolisthesis of L4 on L5 and L5 on S1.? Probably due to underlying facet arthropathy.? There is mild disc space narrowing at L5-S1.? An intrathecal catheter is present entering the sac at the L4-L5 level.? T12-L1:? No significant disc bulge or protrusion.? L1-L2:? No significant disc bulge or protrusion. L2-L3:? There is a mild diffuse disc bulge with [id number] bilateral neural foraminal narrowing.? ? L3-L4: There is a moderate diffuse disc bulge with moderate bilateral neural foraminal narrowing.? ? L4-L5:? There is a moderate diffuse disc bulge with bilateral facet hypertrophy.? There is moderate bilateral neural foraminal narrowing.? ? L5-S1: There is a moderate diffuse disc bulge with endplate hypertrophy. There is moderate bilateral neural foraminal narrowing. IMPRESSION: Multilevel changes of degenerative disc disease with minimal spondylolisthesis of L4 on L5 and L5 on S1.? ? Intrathecal catheter entering the thecal sac at the L4-L5 level. Degenerative changes most pronounced at L4-5 and L5-S1. Reviewed, Interpreted and Dictated by Agustin Frazier MD Transcribed by Darin Stevnes Authenticated and [facility] Procedure Details:: Informed consent was obtained and the risk and benefits of the procedure were explained to the patient. Patient was taken to the procedure room where noninvasive monitoring was placed including noninvasive blood pressure cuff and pulse oximeter. Patient's pump was interrogated and was reprogrammed to Dilaudid 10 mg/mL with a daily dose of 7.2 mg/day and bupivacaine 7.5 mg/mL with a daily dose of 5.4 mg/day. The patient tolerated the procedure well with no complications. Plan and Disposition:: Patient will return to clinic in 2 weeks for reevaluation of symptoms and follow-up. We will resubmit to insurance request for lumbar MRI without contrast due to worsening pain. Patient continues to have significant pain in her low back patient has been instructed to contact the clinic with any concerns before the next appointment. Dr. Goddard has reviewed this note and agrees with this plan of care. This n
[2022-07-27 11:46] VITALS: BP 179/76; PULSE 75; RESP 18; TEMP 36.7; O2SAT 99; BMI 39.0
== END | disposition home or self-care (01) ==
PROVIDERS: PCP Emergency Medicine; Visit Provider Nurse Practitioner Family
DX: M51.16 Intervertebral disc disorders with radiculopathy, lumbar region (principal); M46.1 Sacroiliitis, not elsewhere classified; M70.61 Trochanteric bursitis, right hip; Z79.899 Other long term (current) drug therapy
CPT/HCPCS: 99212; G0463

== ENCOUNTER → 2022-07-27 12:47 | Outpatient (CLI) | payer MEDICARE, OTHER, SELFPAY ==
--- NOTE | 2022-07-27 12:47 | US_ITS ---
FINAL REPORT CLINICAL HISTORY: Painful lymph node on rt side FINDINGS: Sonographic images of the right groin were obtained. There are multiple enlarged right inguinal nodes, largest measures 4.6 x 1.4 cm favored to be reactive. IMPRESSION: Right inguinal nodes as above. If symptoms cyst, follow-up ultrasound may be helpful. Reviewed, Interpreted and Dictated by Lazaro Urbano III, MD Transcribed by Vida Rodriguez Authenticated and [facility]
== END ==
PROVIDERS: PCP Emergency Medicine; Visit Provider Surgery
DX: R59.9 Enlarged lymph nodes, unspecified (principal)
CPT/HCPCS: 76882; 99212; G0463

== ENCOUNTER → 2022-08-14 09:49 | Outpatient (POV) | payer MEDICARE, OTHER, SELFPAY ==
--- NOTE | 2022-08-14 09:53 | EXP.PAIN.SOA ---
[facility] Pain Management SOAP Note Subjective:: Patient is a pleasant 52-year-old female who presents today for MRI denial. We are currently treating the patient for degenerative disc disease of lumbar spine with lumbar radiculopathy symptoms, lumbar facet arthropathy, lumbar spondylosis, right-sided sacroiliitis, right-sided greater trochanteric bursitis. Patient rates her pain today a 9 out of 10. Patient states her pain is excruciating and affects her ability to perform activities of daily living. Patient states she is unable to function or do even minor things around the house due to her pain symptoms. Patient does present today under the weather and states that she has been vomiting as well as having chills. Patient denies any new trauma or injury. Patient denies any change to location or type of pain she experiences. Patient is currently being managed with Dilaudid 10 mg/mL with a daily dose of 7.2 mg/day and bupivacaine 7.5 mg/mL with a daily dose of 5.4 mg/day. At our last visit we did increase her medications and she states this did help initially however her pain continues to worsen. Patient denies any side effects from this medication. Patient is currently managed with gabapentin 400 mg 4 times a day by Dr. Boone's office.? Patient denies any side effects from these medications and states this medication does help manage her pain symptoms.? This is the second time that the patient has been denied a lumbar MRI. Patient did have a lumbar CT in June 2022 however she has been experiencing significant/worsening pain and did want to proceed forward with a MRI. Patient has tried oral medications, topical creams, heat and ice, injective therapy, physical therapy, at home exercising and stretching for longer than 6 weeks with minimal improvement. Patient was seen by physical therapy in December/January of this year however this did worsen her symptoms and she was unable to complete the therapy due to her pain. Patient would like to resubmit for a lumbar MRI. She is also requesting a refill on her tizanidine at today's visit. Her Sukhjinder is [phone]. It has been reviewed and is appropriate.? Injections: 07/11/2022?bilateral SI injections 01/2022?right SI and right bursa injection 04/12/2020?left SI injection Review of Systems: General: No recent weight changes, no fever, no sleep disturbances Respiratory: No cough, no shortness of air, no recurring pulmonary infections Cardiovascular/peripheral vascular: No chest pain, no palpitations, no edema, no shortness of breath Gastrointestinal: No new onset incontinence, normal bowel movements reported Genitourinary: No new onset incontinence Musculoskeletal: Low back pain Psychiatric: [Normal mood/affect] Neurological: [Denies weakness in extremities], [denies balance issues] Objective:: Physical Exam: General: Alert and oriented x3, no acute distress, pleasant and cooperative Lungs: Respirations even and unlabored, symmetrical chest expansion Eyes: PERRL Musculoskeletal: Flexion and extension of lumbar [spine] somewhat guarded secondary to pain, [antalgic gait noted] Neurological: Speech clear, no gross sensory deficit Assessment:: Degenerative disc disease of lumbar spine with lumbar radiculopathy symptoms, lumbar facet arthropathy, lumbar spondylosis, right-sided sacroiliitis, right-sided greater trochanteric bursitis Plan:: Patient continues to experience significant pain in her low back. Patient did have limited range of motion of her lumbar spine during today's visit. Patient's lumbar CT did show multilevel changes of degenerative disc disease with minimal spondylolisthesis of L4 on L5 and L5 on S1. Patient has tried and failed conservative therapies such as oral medications, injective therapy, topical creams, heat and ice, physical therapy, at home exercising and stretching techniques for longer than 6 weeks. Physical therapy was just done this year around January however she was not able to complete due to her wo
[2022-08-14 10:36] VITALS: BP 135/72; PULSE 72; RESP 20; O2SAT 98; BMI 39.0
== END | disposition home or self-care (01) ==
PROVIDERS: PCP Emergency Medicine; Visit Provider Nurse Practitioner Family
DX: M51.16 Intervertebral disc disorders with radiculopathy, lumbar region (principal); M46.1 Sacroiliitis, not elsewhere classified; M70.61 Trochanteric bursitis, right hip; M47.26 Other spondylosis with radiculopathy, lumbar region
CPT/HCPCS: 99212; G0463

== ENCOUNTER → 2022-08-14 11:20 | Outpatient (CLI) | payer MEDICARE, OTHER, SELFPAY ==
[2022-08-14 13:02] LABS: Adenovirus,PCR Not Detected (NotDetected); Bordetella Pertussis Not Detected (NotDetected); Chlamydophila Pneumoniae, PCR Not Detected (NotDetected); Coronavirus 229E Not Detected (NotDetected); Coronavirus NL63 Not Detected (NotDetected); Coronavirus OC43 Not Detected (NotDetected); Coronovirus HKU1,PCR Not Detected (NotDetected); Human Metapneumovirus Not Detected (NotDetected); Influenza A, PCR Not Detected (NotDetected); Influenza AH1, 2009 Not Detected (NotDetected); Influenza AH1, PCR Not Detected (NotDetected); Influenza AH3,PCR Not Detected (NotDetected); Influenza B, PCR Not Detected (NotDetected); Mycoplasma Pneumoniae, PCR Not Detected (NotDetected); Parainfluenza 1, PCR Not Detected (NotDetected); Parainfluenza 2, PCR Not Detected (NotDetected); Parainfluenza 3, PCR Not Detected (NotDetected); Parainfluenza 4, PCR Not Detected (NotDetected); Respiratory Syncytial Virus Not Detected (NotDetected); Rhinovirus/Enterovirus Not Detected (NotDetected)
[2022-08-14 16:52] LABS: Coronavirus 19, PCR Detected (NotDetected)
== END ==
PROVIDERS: PCP Student in an Organized Health Care Education/Training Program; Visit Provider Student in an Organized Health Care Education/Training Program
DX: J02.9 Acute pharyngitis, unspecified (principal); R05.9 Cough, unspecified; U07.1 COVID-19
CPT/HCPCS: 87581; 87632; 87798; 99212; C9803; G0463; U0003; U0005

== ENCOUNTER → 2022-08-31 09:52 | Outpatient (POV) | payer MEDICARE, OTHER, SELFPAY ==
[2022-08-31 10:02] VITALS: BP 167/72; PULSE 76; RESP 18; O2SAT 98; BMI 37.9
--- NOTE | 2022-08-31 10:20 | EXP.PAIN.PRO ---
Procedure Date: 08/31/22 Time: 10:20 Anesthesiologist:: Renae Rey APRN Complications:: None Pre-procedure Diagnosis:: Degenerative disc disease of lumbar spine multilevels with lumbar radiculopathy symptoms, lumbar spondylosis, lumbar facet arthropathy, sacroiliitis, chronic pain Post-procedure Diagnosis:: Same Indications for Procedure:: Patient is a pleasant 52-year-old female who presents today for intrathecal pain pump reprogramming adjustment. The patient is being treated for degenerative disc disease of lumbar spine multilevels with lumbar radiculopathy symptoms, lumbar spondylosis, lumbar facet arthropathy, sacroiliitis, chronic pain. Patient is currently being managed with Dilaudid 20mg/mL with a daily dose of 7.2 mg/day and bupivacaine 10 mg/mL with a daily dose of 3.6 mg/day. Patient denies any side effects from this medication. Patient rates pain a 9 out of 10. Patient is prescribed gabapentin 400 mg 4 times a day from her primary care doctor. Patient denies any side effects from this medication. She states this medication does help. She is also prescribed tizanidine 4 mg at bedtime however she states she does not notice significant improvement with this medication. Patient has tried multiple injections in the past that have provided minimal relief of her symptoms. Patient last had bilateral SI injections on 07/11/2022 that provided 0 relief. Patient describes her pain as a constant achy, sharp pain that goes down her bilateral lower extremities. Patient states this does affect her ability to perform activities of daily living. Patient states she is unable to tolerate prolonged sitting, standing, walking due to her pain symptoms. Drug screen is appropriate. [facility] [place] [phone] has been reviewed and is appropriate. Physical exam General: Alert and oriented x3, no acute distress, pleasant and cooperative Lungs: Respirations even and unlabored, symmetrical chest expansion Eyes: PERRL Musculoskeletal: Flexion and extension of [lumbar] [spine] somewhat guarded secondary to pain, [antalgic gait noted] Neurological: Speech clear, no gross sensory deficit Procedure Details:: Informed consent was obtained and the risk and benefits of the procedure were explained to the patient. Patient was taken to the procedure room where noninvasive monitoring was placed including noninvasive blood pressure cuff and pulse oximeter. Patient's pump was interrogated and was reprogrammed to Dilaudid 20 mg/mL with a daily dose of 7.92 mg/day and bupivacaine 10 mg/mL with a daily dose of 3.96 mg/day. The patient tolerated the procedure well with no complications. Plan and Disposition:: Patient continues to experience significant pain in her low back that radiates into her bilateral lower extremities. Patient did have limited range of motion of her lumbar spine during today's visit I have discussed with the patient that she may benefit from a spinal cord stimulator trial. Risk and benefits were discussed with the patient and educational handouts given. She would like to proceed forward with this plan of care. I will order the patient a psychiatric evaluation today for the spinal cord stimulator trial. I will also order the patient diclofenac 75 mg twice daily. Patient denies any cardiac or kidney issues. Patient states she was on this prior and did well with it with no side effects. Patient has been instructed to not take any other NSAIDs while taking this medication and to take it with food to minimize GI upset. I will also change the patient's tizanidine 4 mg to cyclobenzaprine 10 mg at bedtime and provide a 1 month supply of this medication. We will submit to insurance for spinal cord stimulator trial and contact the patient once we have approval. We will see the patient back in the clinic at the next intrathecal refill. Patient has been instructed to contact the clinic with any concerns before the next appointment. Dr. Goddard has reviewed this no
== END | disposition home or self-care (01) ==
PROVIDERS: PCP Emergency Medicine; Visit Provider Nurse Practitioner Family
DX: M51.16 Intervertebral disc disorders with radiculopathy, lumbar region (principal); M47.26 Other spondylosis with radiculopathy, lumbar region; M46.1 Sacroiliitis, not elsewhere classified; G89.29 Other chronic pain; Z79.899 Other long term (current) drug therapy
CPT/HCPCS: 62368; 99213; G0463

== ENCOUNTER → 2022-10-03 05:53 | Outpatient (CLI) | payer MEDICARE, OTHER, SELFPAY | PROVIDERS: Visit Provider Nurse Practitioner Family | DX: S91.302A Unspecified open wound, left foot, initial encounter (principal); M79.672 Pain in left foot; B96.89 Other specified bacterial agents as the cause of diseases classified elsewhere | CPT/HCPCS: 87070; 87077; 87186; 87205 ==

== ENCOUNTER → 2022-10-13 08:19 | Outpatient (POV) | payer MEDICARE, OTHER, SELFPAY ==
[2022-10-13 08:32] VITALS: BP 198/90; PULSE 81; RESP 18; O2SAT 98; BMI 38.7
--- NOTE | 2022-10-13 08:43 | EXP.PAIN.PRO ---
Procedure Date: 10/13/22 Time: 08:43 Anesthesiologist:: Renae Rey APRN Complications:: None Pre-procedure Diagnosis:: Degenerative disc disease of lumbar spine multilevels with lumbar radiculopathy symptoms, lumbar spondylosis, lumbar facet arthropathy, sacroiliitis, chronic pain Post-procedure Diagnosis:: Same Indications for Procedure:: Patient is a pleasant 52-year-old female who presents today for intrathecal pain pump reprogramming adjustment. The patient is being treated for degenerative disc disease of lumbar spine multilevels with lumbar radiculopathy symptoms, lumbar spondylosis, lumbar facet arthropathy, sacroiliitis, chronic pain syndrome. Patient is currently being managed with Dilaudid 20 mg/mL with a daily dose of 8.71 mg/day and bupivacaine 10 mg/mL with a daily dose of 4.355 mg/day. Patient denies any side effects from this medication. Patient rates pain a 10 out of 10. Patient states she continues to experience significant pain in her bilateral lower extremities. She does describe this as a constant burning sensation that is worse at night. Patient does state that she is having trouble sleeping due to the pain. Patient has had multiple injections in the past that provided minimal improvement. Patient is scheduled for the spinal cord stimulator trial on the of this month. Patient is currently managed with tizanidine 4 mg at bedtime however she states she has not noticed significant improvement. Patient has tried Flexeril in the past with no relief. Patient is managed with gabapentin 400 mg 4 times a day from Dr. Boone's office. Patient denies any side effects from that medication. Her Sukhjinder is [id number]. Its been reviewed and appropriate. Drug screen is appropriate. Physical exam General: Alert and oriented x3, no acute distress, pleasant and cooperative Lungs: Respirations even and unlabored, symmetrical chest expansion Eyes: PERRL Musculoskeletal: Flexion and extension of lumbar [spine] somewhat guarded secondary to pain, [antalgic gait noted] Neurological: Speech clear, no gross sensory deficit Procedure Details:: Informed consent was obtained and the risk and benefits of the procedure were explained to the patient. Patient was taken to the procedure room where noninvasive monitoring was placed including noninvasive blood pressure cuff and pulse oximeter. Patient's pump was interrogated and was reprogrammed to Dilaudid 20 mg/mL with a daily dose of 9.58 mg/day and bupivacaine 10 mg/mL with a daily dose of 4.79 mg/day. The patient tolerated the procedure well with no complications. Plan and Disposition:: Patient will return to clinic next Sunday for her spinal cord stimulator trial. I will also send in a prescription for methocarbamol 750 mg twice daily and provide a 1 month supply of this medication. I have counseled the patient to stop taking all other muscle relaxers while taking this. Patient has been instructed to contact the clinic with any concerns before the next appointment. Dr. Goddard has reviewed this note and agrees with this plan of care. This note was dictated using voice recognition software and make contain errors or omissions. -- It Is medically necessary for this patient to continue to have their intrathecal pump refilled at regular intervals. This patient had an intrathecal pain pump implanted after meeting criteria of chronic intractable pain for greater than 3 months and failing conservative treatments. Patient has committed and been compliant to the treatment plan and all planned follow up care. Since implantation of the intrathecal pain pump, the patient has had decreased pain and been more functional. Oral medications have been reduced including intake of oral opioids. Patient continues to do well with intrathecal therapy with decrease in pain symptoms and increase in functional status. Stopping intrathecal medications can lead to life threatening withdrawal, seizures, cardiac arrest, se
== END | disposition home or self-care (01) ==
PROVIDERS: PCP Emergency Medicine; Visit Provider Nurse Practitioner Family
DX: Z45.1 Encounter for adjustment and management of infusion pump (principal); M51.16 Intervertebral disc disorders with radiculopathy, lumbar region; M47.26 Other spondylosis with radiculopathy, lumbar region; M46.1 Sacroiliitis, not elsewhere classified; G89.29 Other chronic pain
CPT/HCPCS: 62368; 99213; G0463

== ENCOUNTER → 2022-10-17 14:45 | Outpatient (CLI) | payer MEDICARE, OTHER, SELFPAY ==
--- NOTE | 2022-10-17 14:51 | XR_ITS ---
FINAL REPORT CLINICAL HISTORY: foot pain, ulcer of heel FINDINGS: Left foot Four views were obtained. There is no acute fracture or dislocation. There is no evidence of bone destruction. There is mild degenerative joint disease at the midfoot. No soft tissue abnormality is identified. IMPRESSION: Mild degenerative joint disease. Reviewed, Interpreted and Dictated by Valentina Lopes MD Transcribed by Vida Rodriguez Authenticated and [facility]
== END ==
PROVIDERS: PCP Emergency Medicine; Visit Provider Nurse Practitioner Family
DX: E11.621 Type 2 diabetes mellitus with foot ulcer (principal); L97.922 Non-pressure chronic ulcer of unspecified part of left lower leg with fat layer exposed; Z79.4 Long term (current) use of insulin
CPT/HCPCS: 73630

== ENCOUNTER 2022-10-20 06:48 | Day surgery (SDC) | payer MEDICARE, OTHER, SELFPAY ==
[2022-10-18 12:55] VITALS: BMI 38.7
[2022-10-20 07:43] LABS: Basophils # 0.1 K/mm3 (0-0.2); Basophils % 0.9 % (0.1-2.0); Eosinophils # 0.3 K/mm3 (0.0-0.4); Eosinophils % 3.8 % (0.1-12.0); Hematocrit 45.1 % (37.0-47.0); Hemoglobin 14.5 g/dL (12.2-16.2); Lymphocytes # 1.8 K/mm3 (0.7-4.5); Lymphocytes % 27.3 % (10-50); Mean Corpuscular Hemoglobin 28.3 pg (27.0-31.2); Mean Corpuscular Volume 88.5 fl (81-99); Mean Platelet Volume 8.5 fl (7.4-10.4); Monocytes # 0.5 K/mm3 (0.1-1.0); Monocytes % 6.9 % (1.7-9.3); Neutrophils # 4.1 K/mm3 (1.8-7.8); Platelet Count 210 K/mm3 (142-424); Red Cell Distribution Width 16.3 % (11.5-17.5); White Blood Count 6.7 K/mm3 (4.8-10.8)
[2022-10-20 07:47] LABS: Chloride 103 mmol/L (98-107); Potassium 4.3 mmoL/L (3.5-5.1); Sodium 137 mmol/L (136-145)
[2022-10-20 07:50] LABS: Alanine Aminotransferase 27 U/L (12-78); Albumin Level 3.6 g/dl (3.5-5.0); Alkaline Phosphatase 193 U/L (38-126); Anion Gap 5.3 mEq/L (5-15); Aspartate Amino Transferase 36 U/L (14-36); Bilirubin,Total 0.6 mg/dl (0.2-1.3); Blood Urea Nitrogen 16 mg/dl (7-17); Carbon Dioxide 33 mmol/L (22.0-30.0); Creatinine Clearance Estimated 186 mL/min (50-200); Estimated Glomerular Filt Rate 105 ml/min (>60); GFR (African American) 127 ML/MIN (>60); Globulin 3.6 g/dL (1.3-3.2); Total Protein,Serum 7.2 g/dl (6.3-8.2)
[2022-10-20 07:51] LABS: Calcium 8.8 mg/dl (8.4-10.2); Glucose 222 mg/dl (74-100)
[2022-10-20 07:55] VITALS: BP 158/70; PULSE 71; RESP 18; TEMP 37.1; O2SAT 93
[2022-10-20 07:56] LABS: C-Reactive Protein 5.4 mg/L (0-4)
[2022-10-20 07:59] LABS: Hemoglobin A1C 10.4 % (4.0-6.0)
[2022-10-20 08:13] LABS: POC Glucose,Bedside 198 (70-110)
--- NOTE | 2022-10-20 09:24 | P.PN_ITS ---
[facility] Disclaimer: The information contained in this section may have been updated after the patient was seen, as this information can be updated by other users. Medical History Diabetes mellitus with Charcot's joint arthropathy Diabetic foot Excess skin of arm Presence of intrathecal pump Spondylosis of lumbar region without myelopathy or radiculopathy Type 2 diabetes mellitus Surgical History Total knee replacement status Family History Other Family history of COPD (chronic obstructive pulmonary disease) Family history of cancer Family history of diabetes mellitus type II Family history of hypertension Family history of myocardial infarction Social History Smoking Status: Current every day smoker tobacco type: cigarettes packs per day: 1 pack-years: 35 second hand exposure: Yes alcohol intake: never substance use type: denies use current occupational status: unemployed and disabled Travel in the last 8 weeks: None household members: friend(s) housing: house lives independently: Yes marital status: single education level: high school 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 caffeine: Yes special heather needs: No agree to transfusion: No do you feel safe at home: Yes victim of physical abuse: No victim of emotional abuse: No victim of sexual abuse: No would you like helpful sources: No [facility] Anesthesia Checklist Patient Identification Patient Identification: Arm Band Structural Data Admitted From: Home Planned Operative Procedure/s: Trial Neurostimulator Lead Placement under Fluoroscopy Consent for Planned Operative Procedure(s) Verified: Yes Verified Documents: Surgical Consent and History and Physical NPO Status Verified Time NPO: 00:00 Additional verifications Anesthesia Reactions: No Hx Blood Transfusions: No Blood Transfusion Reaction: No Airway Assessment C-Spine Mobility Assessed: Yes TMJ Mobility Assessed: Yes Dentition: Edentulous Neurological Assessment Level of Consciousness: Awake and Alert Anesthesia Plan Anesthesia Risk discussed: Yes Anesthesia Plan: Verified ASA Class: III Anesthesia Type: MAC
[2022-10-20 10:20] VITALS: BP 166/89; PULSE 86; RESP 18; TEMP 36.8; O2SAT 95
[2022-10-20 10:30] VITALS: BP 166/62; PULSE 84; RESP 18; O2SAT 95
[2022-10-20 10:40] VITALS: BP 181/79; PULSE 77; RESP 18; O2SAT 94
[2022-10-20 10:50] VITALS: BP 173/82; PULSE 77; RESP 18; O2SAT 95
[2022-10-20 11:10] VITALS: BP 184/87; PULSE 74; RESP 18; O2SAT 95
--- NOTE | 2022-10-20 15:05 | EXP.OP.NOTE ---
Date of procedure: 10/20/22 Pre-op Diagnosis:: Degenerative disc disease of lumbar spine with lumbar radiculopathy symptoms Post-op Diagnosis:: Same Procedure performed:: Spinal cord stimulator trial epidural lead placement with 2 leads Surgeon:: Adelso Goddard MD LODGING FACILITIES MANAGER:: Med Rich Anesthesia: MAC Estimated blood loss (mL): 1 Clinical Note:: This patient is a pleasant 52-year-old white female who we are treating for low back pain with lumbar radiculopathy symptoms. She has a increasing pain in her back and down her legs. She currently does have a Dilaudid/bupivacaine pain pump in place. This is helping her back pain. However she has significant radicular symptoms. She presents for spinal cord stimulator trial today. She does have a successful psychological evaluation Operative findings:: None Operative note:: Informed consent was obtained the risk and benefits of the procedure were explained to the patient. Patient was taken to the procedure room. Back was prepped using ChloraPrep. The skin and subtenons tissues were anesthetized using lidocaine. I placed a 17-gauge epidural needle and advanced into the L1-L2 interspace. After confirmation needle placement in the epidural space stimulator lead was inserted and advanced very easily to the T7-T8-T9 vertebral body. A second needle was inserted and advanced again into the L1-L2 interspace. Again after confirmation needle placement in the epidural space stimulator lead was inserted and advanced very easily to the T7-T8-T9 vertebral body. Lead placement was checked in AP and lateral views. Stylets and needles were removed. The leads were secured in place. The patient was taken recovery in stable condition. Patient tolerated the procedure well with no complications. Patient was programmed by the [employer] sales support representative with good stimulation in all areas of pain. Plan and disposition: We will follow-up with this patient in 1 week for lead pull. We will continually make adjustments each day. Condition: stable Disposition: PACU Complications:: None
[2022-10-24 10:53] LABS: Erythrocyte Sedimentation Rate 16 mm/hr (0-30)
== END 2022-10-20 11:18 | disposition home or self-care (01) ==
PROVIDERS: Nurse Practitioner Family; PCP Emergency Medicine; Visit Provider Anesthesiology
DX: M51.16 Intervertebral disc disorders with radiculopathy, lumbar region; E11.8 Type 2 diabetes mellitus with unspecified complications; F17.210 Nicotine dependence, cigarettes, uncomplicated; Z79.899 Other long term (current) drug therapy
CPT/HCPCS: 63650 ×2; 36415; 80053; 82962; 83036; 85025; 85651; 86140; 96374; C1778; J2704; J3370

== ENCOUNTER → 2022-10-26 09:32 | Outpatient (POV) | payer MEDICARE, OTHER, SELFPAY ==
--- NOTE | 2022-10-26 10:35 | EXP.PAIN.PRO ---
Procedure Date: 10/26/22 Time: 10:22 Anesthesiologist:: Renae Rey APRN Complications:: None Pre-procedure Diagnosis:: Degenerative disc disease of lumbar spine multilevels with lumbar radiculopathy symptoms, lumbar spondylosis, lumbar facet arthropathy, sacroiliitis, chronic pain Post-procedure Diagnosis:: Same Indications for Procedure:: Patient is a pleasant 52-year-old female who presents today for intrathecal pain pump reprogramming adjustment. The patient is being treated for degenerative disc disease of lumbar spine multilevels with lumbar radiculopathy symptoms, lumbar spondylosis, lumbar facet arthropathy, sacroiliitis, chronic pain. Patient is currently being managed with Dilaudid 20 mg/mL with a daily dose of 9.58 mg/day and bupivacaine 10 mg/mL with a daily dose of 4.79 mg/day. Patient denies any side effects from this medication. Patient rates pain a 6 out of 10. Patient denies any new trauma or injury. Patient denies any change location or type of pain she experiences. Patient did recently just have her [employer] spinal cord stimulator trial. Patient states that she has had at least 70% improvement following this trial. Patient states she was able to increase her activity along with increased range of motion with decreased pain. Patient states her legs were significantly improved with decreasing symptoms of numbness and tingling with the spinal cord stimulator and it did help her back as well. Patient states that she does want to proceed forward with the implant. Patient states it made significant improvement in her activities of daily living and that she does feel like she has had improved functionality with this additional device. Patient states following the lead removal of the SCS trial she is having worsening back pain and leg pain and is requesting a small increase of her intrathecal pain pump medication today. Drug screen is appropriate. Patient is managed with gabapentin 400 mg 4 times a day from her primary care doctor. Patient denies any side effects from this medication. She states this medication does help manage some of her pain symptoms. Sukhjinder [id number] has been reviewed and is appropriate. Physical exam General: Alert and oriented x3, no acute distress, pleasant and cooperative Lungs: Respirations even and unlabored, symmetrical chest expansion Eyes: PERRL Musculoskeletal: Flexion and extension of lumbar [spine] somewhat guarded secondary to pain, [antalgic gait noted] Neurological: Speech clear, no gross sensory deficit Procedure Details:: Informed consent was obtained and the risk and benefits of the procedure were explained to the patient. Patient was taken to the procedure room where noninvasive monitoring was placed including noninvasive blood pressure cuff and pulse oximeter. Patient's pump was interrogated and was reprogrammed to Dilaudid 20 mg/mL with a daily dose of 10.059 mg/day and bupivacaine 10 mg/mL with a daily dose of 5.0295 mg/day. The patient tolerated the procedure well with no complications. Plan and Disposition:: Patient did have significant improvement of her leg pain and back pain following her spinal cord stimulator trial. Patient did have at least 70% improvement with increased activity and functionality. Patient has tried and failed conservative therapy such as oral medications, topicals, heat and ice, injective therapy, physical therapy, at home exercising and stretching for longer than 6 weeks. I have discussed with the patient the risk and benefits of the spinal cord stimulator implant procedure. She would like to proceed forward with this plan of care. We will submit to insurance for the [employer] spinal cord stimulator implant and contact the patient once we have approval. Patient is not on any blood thinners. We will see the patient back in the clinic at the next intrathecal refill. Patient has been instructed to contact the clinic with any concerns b
[2022-10-26 10:39] VITALS: BP 175/57; PULSE 78; RESP 18; O2SAT 97; BMI 38.7
== END | disposition home or self-care (01) ==
PROVIDERS: PCP Emergency Medicine; Visit Provider Nurse Practitioner Family
DX: Z45.1 Encounter for adjustment and management of infusion pump (principal); M51.16 Intervertebral disc disorders with radiculopathy, lumbar region; M46.1 Sacroiliitis, not elsewhere classified; M47.26 Other spondylosis with radiculopathy, lumbar region; G89.29 Other chronic pain
CPT/HCPCS: 62368; 99213; G0463

== ENCOUNTER → 2022-11-22 11:35 | Outpatient (CLI) | payer MEDICARE, OTHER, SELFPAY ==
[2022-11-22 14:07] LABS: Chloride 102 mmol/L (98-107); Potassium 4.6 mmoL/L (3.5-5.1); Sodium 135 mmol/L (136-145)
[2022-11-22 14:10] LABS: Anion Gap 4.6 mEq/L (5-15); Blood Urea Nitrogen 14 mg/dl (7-17); Calcium 8.7 mg/dl (8.4-10.2); Carbon Dioxide 33 mmol/L (22.0-30.0); Estimated Glomerular Filt Rate 129 ml/min (>60); GFR (African American) 156 ML/MIN (>60); Glucose 122 mg/dl (74-100)
[2022-11-22 14:14] LABS: Basophils # 0.1 K/mm3 (0-0.2); Basophils % 0.9 % (0.1-2.0); Eosinophils # 0.2 K/mm3 (0.0-0.4); Eosinophils % 2.6 % (0.1-12.0); Hematocrit 44.1 % (37.0-47.0); Hemoglobin A1C 9.3 % (4.0-6.0); Lymphocytes # 1.9 K/mm3 (0.7-4.5); Lymphocytes % 21.5 % (10-50); Mean Corpuscular HGB Conc 31.7 g/dL (31.8-35.4); Mean Corpuscular Hemoglobin 28.3 pg (27.0-31.2); Mean Corpuscular Volume 89.5 fl (81-99); Monocytes # 0.7 K/mm3 (0.1-1.0); Monocytes % 7.6 % (1.7-9.3); Neutrophils % 67.4 % (37.0-80.0); Platelet Count 221 K/mm3 (142-424); Red Blood Count 4.93 M/mm3 (4.20-5.40); Red Cell Distribution Width 14.4 % (11.5-17.5)
== END ==
PROVIDERS: PCP Emergency Medicine; Visit Provider Anesthesiology
DX: Z01.812 Encounter for preprocedural laboratory examination (principal); M51.36 Other intervertebral disc degeneration, lumbar region; E11.9 Type 2 diabetes mellitus without complications; Z79.4 Long term (current) use of insulin
CPT/HCPCS: 36415; 80048; 83036; 85025

== ENCOUNTER 2022-11-24 08:54 | Day surgery (SDC) | payer MEDICARE, OTHER, SELFPAY ==
[2022-11-22 14:12] VITALS: BMI 37.8
[2022-11-24] VITALS (7 sets, daily range): BP systolic 159–198; BP diastolic 66–92; PULSE 76–97; RESP 16–19; TEMP 36.6–43; O2SAT 92–98
[2022-11-24 09:50] LABS: POC Glucose,Bedside 187 (70-110)
--- NOTE | 2022-11-24 13:17 | EXP.ANES.CKL ---
[facility] Disclaimer: The information contained in this section may have been updated after the patient was seen, as this information can be updated by other users. Medical History Diabetes mellitus with Charcot's joint arthropathy Diabetic foot Excess skin of arm Presence of intrathecal pump Spondylosis of lumbar region without myelopathy or radiculopathy Type 2 diabetes mellitus Surgical History Total knee replacement status Family History Other Family history of COPD (chronic obstructive pulmonary disease) Family history of cancer Family history of diabetes mellitus type II Family history of hypertension Family history of myocardial infarction Social History (Updated 11/24/22 @ 09:30 by Candie Wyatt RN) Smoking Status: Current every day smoker tobacco type: cigarettes packs per day: 1 pack-years: 35 second hand exposure: Yes alcohol intake: never substance use type: denies use current occupational status: disabled Travel in the last 8 weeks: None household members: friend(s) housing: house lives independently: Yes marital status: single education level: high school 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 caffeine: Yes special heather needs: No agree to transfusion: No do you feel safe at home: Yes victim of physical abuse: No victim of emotional abuse: No victim of sexual abuse: No would you like helpful sources: No [facility] Anesthesia Checklist Patient Identification Patient Identification: Arm Band and Family Structural Data Admitted From: Home Planned Operative Procedure/s: Stimulator implants Consent for Planned Operative Procedure(s) Verified: Yes Verified Documents: Surgical Consent NPO Status Verified Time NPO: 00:00 Additional verifications Patient : No Anesthesia Reactions: No Hx Blood Transfusions: No Blood Transfusion Reaction: No Cephalosporin Allergy: No Previous Colonoscopy: Yes Airway Assessment C-Spine Mobility Assessed: Yes TMJ Mobility Assessed: Yes Dentition: Partials Neurological Assessment Level of Consciousness: Awake, Alert, Appropriate and Follows Commands Hx Seizures: No Numbness or tingling in extremities: Yes Anesthesia Plan Anesthesia Risk discussed: Yes ASA Class: III Anesthesia Type: MAC Preoperative Comments Pre-Operative Comments: Htn, COPD, IDDM.
--- NOTE | 2022-11-24 15:31 | EXP.OP.NOTE ---
Date of procedure: 11/24/22 Pre-op Diagnosis:: Degenerative disc disease of lumbar spine with lumbar radiculopathy symptoms Post-op Diagnosis:: Same Procedure performed:: Permanent placement spinal cord stimulator with epidural lead placement x2 Surgeon:: Adelso Goddard MD BEHAVIOR MANAGEMENT SPECIALIST:: Ermelinda Varma Anesthesia: MAC Estimated blood loss (mL): 5 Clinical Note:: This patient is a pleasant 52-year-old white female who we are treating for low back pain with lumbar radiculopathy symptoms. She has increasing pain in her back and down her legs. Currently she does have an intrathecal Dilaudid bupivacaine pain pump in place. This does help her back pain however she still has radicular symptoms. She has failed all previous conservative treatments including injections, oral medications and she is not a surgical candidate. She has had a successful spinal cord stimulator trial and a successful psychological evaluation. She presents for permanent placement of her spinal cord stimulator today. Operative findings:: None Operative note:: Informed consent was obtained the risk and benefits of the procedure were explained to the patient. The patient was taken the operating room placed prone on the procedure table. She was prepped and draped in sterile fashion. C-arm fluoroscopy was used to view the lumbar spine. The skin and subcutaneous tissues were anesthetized using lidocaine. I made an incision and dissected down to the lumbar paraspinous fascia. A 17-gauge epidural needle was inserted and advanced into the L1-L2 interspace. After confirmation of needle placement in the epidural space stimulator lead was inserted and advanced very easily to the T8-T9 vertebral bodies. A second needle was inserted and advanced again into the L1-L2 interspace. Again after comprehensive needle placement in the epidural space a second stimulating lead was inserted and advanced again very easily to the T8-T9 vertebral body. Leads were checked in AP and lateral views. The needles and stylets were removed. The leads were secured to the fascia with an anchoring vice and 2-0 Prolene. I created the generator pocket on the left flank. I tunneled leads to the generator pocket and attached the leads to the generator. Impedances were checked and found to be okay. Both incisions were irrigated with antibiotic solution. Both incisions were then closed with 2-0 Vicryl followed by 4-0 nylon and dewayne. The patient was placed in an abdominal binder taken recovery in stable condition. The patient was programmed by the [employer] utility sales representative with good stimulation in all areas of pain. Plan and disposition: We will follow-up with this patient in 1 week for wound check. We will follow-up in 2 weeks for suture and staple removal. If she has any problems or questions she is to call us back in the pain clinic. Condition: stable Disposition: PACU Complications:: None
== END 2022-11-24 13:55 | disposition home or self-care (01) ==
PROVIDERS: PCP Emergency Medicine; Visit Provider Anesthesiology
DX: M51.16 Intervertebral disc disorders with radiculopathy, lumbar region (principal); E11.9 Type 2 diabetes mellitus without complications; Z79.4 Long term (current) use of insulin; Z79.899 Other long term (current) drug therapy; F17.210 Nicotine dependence, cigarettes, uncomplicated
CPT/HCPCS: 63650 ×2; 63685; 82962; 96374; C1778; C1820; J2704

== ENCOUNTER → 2022-12-01 09:21 | Outpatient (POV) | payer MEDICARE, OTHER, SELFPAY ==
[2022-12-01 09:54] VITALS: BP 184/70; PULSE 75; RESP 18; O2SAT 97; BMI 37.8
--- NOTE | 2022-12-01 10:28 | EXP.PAIN.SOA ---
[facility] Pain Management SOAP Note Subjective:: Patient is a pleasant 52-year-old female who presents today for follow-up of spinal cord stimulator implant on 11/24/2022. We are currently treating the patient for degenerative disc disease of lumbar spine multilevels with lumbar radiculopathy symptoms, lumbar spondylosis, lumbar facet arthropathy, sacroiliitis, chronic pain. Patient does rate her pain today a 5 out of 10. Patient denies any new trauma or injury or complication following this procedure. She does state that she feels like she has incisional pain along with additional soreness below the incision. Patient's leads were placed along the T8-T9 vertebral bodies. Patient states she has had some improvement however she feels like she needs additional changes made to her programming of the [employer] stimulator. Patient is currently managed with a intrathecal pain pump of Dilaudid 20 mg/mL with a daily dose of 10.059 mg/day and bupivacaine 10 mg/mL with a daily dose of 5.0295 mg/day. Patient denies any side effects from this medication. She states it does help her pain symptoms. Patient did have a spinal cord stimulator trial that provided at least 70% improvement specifically in her legs. She is also managed with gabapentin 400 mg 4 times a day from her primary care doctor. Patient denies any side effects from this medication. Her Sukhjinder is [id number]. Its been reviewed and appropriate. Review of Systems: General: No recent weight changes, no fever, no sleep disturbances Respiratory: No cough, no shortness of air, no recurring pulmonary infections Cardiovascular/peripheral vascular: No chest pain, no palpitations, no edema, no shortness of breath Gastrointestinal: No new onset incontinence, normal bowel movements reported Genitourinary: No new onset incontinence Musculoskeletal: Low back pain, leg pain Psychiatric: [Normal mood/affect] Neurological: [Denies weakness in extremities], [denies balance issues] Objective:: Physical Exam: General: Alert and oriented x3, no acute distress, pleasant and cooperative Lungs: Respirations even and unlabored, symmetrical chest expansion Eyes: PERRL Musculoskeletal: Flexion and extension of lumbar [spine] somewhat guarded secondary to pain, [antalgic gait noted] Neurological: Speech clear, no gross sensory deficit Assessment:: Degenerative disc disease of lumbar spine multilevels with lumbar radiculopathy symptoms, lumbar spondylosis, lumbar facet arthropathy, sacroiliitis, chronic pain Plan:: Patient is doing well following her spinal cord stimulator implant however she does have incisional pain and soreness. Her incision sites do look clean, dry, well approximated with minimal erythema and no drainage noted. Patient does have some ecchymosis around the inferior aspect of her midline incision. I have counseled the patient to continue her postoperative restrictions with minimal bending lifting twisting continue to use her abdominal binder to prevent seroma formation and no submerging in tub water until her incision is fully healed. Patient will return to clinic in 1 week with the plan to remove her sutures and dewayne if indicated. Patient did meet with [employer] union representative and had programming adjusted that did provide significant relief in her back and legs. Patient will return to clinic in 1 week for reevaluation of symptoms and plan of care. Patient has been instructed to contact the clinic with any concerns before the next appointment. Dr. Goddard has reviewed this note and agrees with this plan of care. This note was dictated using voice recognition software and make contain errors or omissions. [facility] Disclaimer: The information contained in this section may have been updated after the patient was seen, as this information can be updated by other users. Medical History Diabetes mellitus with Charcot's joint arthropathy Diabetic foot
== END ==
PROVIDERS: PCP Emergency Medicine; Visit Provider Nurse Practitioner Family
DX: M51.16 Intervertebral disc disorders with radiculopathy, lumbar region (principal); M46.1 Sacroiliitis, not elsewhere classified; M47.26 Other spondylosis with radiculopathy, lumbar region; G89.29 Other chronic pain
CPT/HCPCS: 99212; G0463

== ENCOUNTER → 2022-12-07 14:07 | Outpatient (POV) | payer MEDICARE, OTHER, SELFPAY ==
--- NOTE | 2022-12-07 15:31 | EXP.PAIN.SOA ---
[facility] Pain Management SOAP Note Subjective:: Patient is a pleasant 52-year-old female who presents today for follow-up. We are currently treating the patient for degenerative disc disease of lumbar spine multilevels with lumbar radiculopathy symptoms, lumbar spondylosis, lumbar facet arthropathy, sacroiliitis, chronic pain. Today she rates her pain a 7 out of 10. Patient denies any new trauma or injury. Patient denies any change to the location or type of pain she experiences. Patient states she continues to have right leg burning sensation that is worse with increased activity. She states that at our last visit the [employer] public service representative was able to provide better programming and did help improve her symptoms however she continues to have this pain. Patient did have a spinal cord stimulator implant on 11/24/2022. Patient is currently managed with Dilaudid 20 mg/mL with a daily dose of 10.059 mg/day and bupivacaine 10 mg/mL with a daily dose of 5.0295 mg/day. Patient denies any side effects from these medications. She is also prescribed gabapentin 400 mg 4 times a day and ropinirole 3 mg daily from her primary care doctor. Patient denies any side effects from these medications. Patient is on methocarbamol 750 mg 3 times a day however she states she does not notice as much improvement with this. Patient was prescribed compounding cream in the past however insurance did not cover it so she did not proceed forward with this plan of care. Patient does use a cane for additional help with ambulation. Her Sukhjinder is [id number]. Its been reviewed and appropriate. Review of Systems: General: No recent weight changes, no fever, no sleep disturbances Respiratory: No cough, no shortness of air, no recurring pulmonary infections Cardiovascular/peripheral vascular: No chest pain, no palpitations, no edema, no shortness of breath Gastrointestinal: No new onset incontinence, normal bowel movements reported Genitourinary: No new onset incontinence Musculoskeletal: Low back pain, leg pain Psychiatric: [Normal mood/affect] Neurological: [Denies weakness in extremities], [denies balance issues] Objective:: Physical Exam: General: Alert and oriented x3, no acute distress, pleasant and cooperative Lungs: Respirations even and unlabored, symmetrical chest expansion Eyes: PERRL Musculoskeletal: Flexion and extension of lumbar [spine] somewhat guarded secondary to pain, [antalgic gait noted] Neurological: Speech clear, no gross sensory deficit Skin: Incision sites clean, dry, well approximated with minimal erythema, dewayne intact Assessment:: Degenerative disc disease of lumbar spine multilevels with lumbar radiculopathy symptoms, lumbar spondylosis, lumbar facet arthropathy, sacroiliitis, chronic pain Plan:: Patient is doing well following her spinal cord stimulator implant. I have counseled the patient to continue her postop restrictions and at our next visit if indicated we will remove her dewayne and add Steri-Strips. I will change her methocarbamol 750 mg to 1000 mg 3 times daily and provide a 1 month supply of this medication. Patient will return to clinic in 1 week for reevaluation of symptoms and plan of care. Patient has been instructed to contact the clinic with any concerns before the next appointment. Dr. Goddard has reviewed this note and agrees with this plan of care. This note was dictated using voice recognition software and make contain errors or omissions. -- It Is medically necessary for this patient to continue to have their intrathecal pump refilled at regular intervals. This patient had an intrathecal pain pump implanted after meeting criteria of chronic intractable pain for greater than 3 months and failing conservative treatments. Patient has committed and been compliant to the treatment plan and all planned follow up care. Since implantation of the intrathecal pain pump, the patient has had decreased pain and been more functional. Oral medicatio
[2022-12-07 15:57] VITALS: BP 196/64; PULSE 73; RESP 18; O2SAT 97; BMI 37.8
== END | disposition home or self-care (01) ==
PROVIDERS: PCP Emergency Medicine; Visit Provider Nurse Practitioner Family
DX: M51.16 Intervertebral disc disorders with radiculopathy, lumbar region (principal); M46.1 Sacroiliitis, not elsewhere classified; M47.26 Other spondylosis with radiculopathy, lumbar region; G89.29 Other chronic pain
CPT/HCPCS: 99212; 99213; G0463

== ENCOUNTER → 2022-12-13 09:55 | Outpatient (POV) | payer MEDICARE, OTHER, SELFPAY ==
[2022-12-13 10:45] VITALS: BP 176/67; PULSE 71; RESP 20; BMI 37.8
--- NOTE | 2022-12-13 12:30 | EXP.PAIN.PRO ---
Procedure Date: 12/13/22 Time: 11:21 Anesthesiologist:: Renae Rey APRN Complications:: None Pre-procedure Diagnosis:: Degenerative disc disease of lumbar spine multilevels with lumbar radiculopathy symptoms, lumbar spondylosis, lumbar facet arthropathy, sacroiliitis, chronic pain Post-procedure Diagnosis:: Same Indications for Procedure:: Patient is a pleasant 52-year-old female who presents today for intrathecal pain pump reprogramming adjustment and follow-up. The patient is being treated for degenerative disc disease of lumbar spine multilevels with lumbar radiculopathy symptoms, lumbar spondylosis, lumbar facet arthropathy, sacroiliitis, chronic pain. Patient is currently being managed with Dilaudid 20 mg/mL with a daily dose of 10.059 mg/day and bupivacaine 10 mg/mL with a daily dose of 5.0295 mg/day. Patient denies any side effects from this medication. Patient rates pain a 7 out of 10. Patient denies any new trauma or injury. She does states she continues to have burning and tingling in her bilateral legs that is worse at night. She also states she has continued pain in her low back that is worse with activity such as bending, lifting, twisting. Patient does state that it does interfere with her activities of daily living such as cooking and cleaning. She states that she frequently has to take multiple breaks and cannot tolerate the simplest of activities due to her worsening pain symptoms. Patient did have a spinal cord stimulator placed on 11/24/2022. She denies any additional problems following this procedure she has been in contact with [employer] construction representative and had her SCS reprogrammed and states that it seems to be helping right now. She is currently managed with ropinirole 3 mg daily and gabapentin 400 mg 4 times a day from her primary care doctor. We recently increased her methocarbamol to 1000 mg 3 times a day however she states she has not yet noticed significant improvement. She was ordered compounding cream however her insurance did not cover this and she did not want to pay [id number]. She is interested in a intrathecal adjustment during today's visit as well as any additional options we can provide for better pain control. Patient does use a cane for ambulation drug screen is appropriate. Sukhjinder has been reviewed and is appropriate. Physical exam General: Alert and oriented x3, no acute distress, pleasant and cooperative Lungs: Respirations even and unlabored, symmetrical chest expansion Eyes: PERRL Musculoskeletal: Flexion and extension of lumbar [spine] somewhat guarded secondary to pain, [antalgic gait noted] Neurological: Speech clear, no gross sensory deficit Skin: Incision sites clean, dry, well approximated with minimal erythema, dewayne and sutures intact FINDINGS: Sagittal reconstruction images demonstrate minimal spondylolisthesis of L4 on L5 and L5 on S1.? Probably due to underlying facet arthropathy.? There is mild disc space narrowing at L5-S1.? An intrathecal catheter is present entering the sac at the L4-L5 level.? T12-L1:? No significant disc bulge or protrusion.? L1-L2:? No significant disc bulge or protrusion. L2-L3:? There is a mild diffuse disc bulge with [id number] bilateral neural foraminal narrowing.? ? L3-L4: There is a moderate diffuse disc bulge with moderate bilateral neural foraminal narrowing.? ? L4-L5:? There is a moderate diffuse disc bulge with bilateral facet hypertrophy.? There is moderate bilateral neural foraminal narrowing.? ? L5-S1: There is a moderate diffuse disc bulge with endplate hypertrophy. There is moderate bilateral neural foraminal narrowing. IMPRESSION: Multilevel changes of degenerative disc disease with minimal spondylolisthesis of L4 on L5 and L5 on S1.? ? Intrathecal catheter entering the thecal sac at the L4-L5 level. Degenerative changes most pronounced at L4-5 and L5-S1. Reviewed, Interpreted and Dictated by Agustin Frazier MD Transcrib
== END | disposition home or self-care (01) ==
PROVIDERS: PCP Emergency Medicine; Visit Provider Nurse Practitioner Family
DX: Z45.1 Encounter for adjustment and management of infusion pump (principal); M51.16 Intervertebral disc disorders with radiculopathy, lumbar region; M47.26 Other spondylosis with radiculopathy, lumbar region; M46.1 Sacroiliitis, not elsewhere classified; G89.29 Other chronic pain
CPT/HCPCS: 99212; G0463

== ENCOUNTER → 2022-12-21 12:59 | Outpatient (POV) | payer MEDICARE, OTHER, SELFPAY ==
[2022-12-21 13:22] VITALS: BP 146/64; PULSE 77; RESP 18; O2SAT 98; BMI 39.6
--- NOTE | 2022-12-21 13:45 | EXP.PAIN.SOA ---
[facility] Pain Management SOAP Note Subjective:: Patient is a pleasant 52-year-old female who presents today for follow-up of spinal cord stimulator implant on 11/24/2022. We are currently treating the patient for degenerative disc disease of lumbar spine multilevels with lumbar radiculopathy symptoms, lumbar facet arthropathy, lumbar spondylosis, sacroiliitis, chronic pain. today she rates her pain a 5 out of 10. Patient denies any new trauma or injury. Patient denies any change location or type of pain she experiences. At her last visit we did increase her intrathecal pump to Dilaudid 20 mg/mL with a daily dose of 10.6 mg/day and bupivacaine 10 mg/mL with a daily dose of 5.3 mg/day. Patient states that she has had better improvement of her pain symptoms following this increase. Patient denies any side effects from this medication. Patient is also prescribed gabapentin 400 mg 4 times a day, ropinirole 3 mg at bedtime from her primary care doctor. Patient denies any side effects from these medications. We have also prescribed methocarbamol 1000 mg 3 times a day. Patient states this does help additionally. Patient does not need any additional refills at this time. Patient was prescribed compounding cream in the past however it was not covered by her insurance. Patient does have a [employer] spinal cord stimulator in place and states the current programming is doing well. Her Sukhjinder is [id number]. Its been reviewed and appropriate. Review of Systems: General: No recent weight changes, no fever, no sleep disturbances Respiratory: No cough, no shortness of air, no recurring pulmonary infections Cardiovascular/peripheral vascular: No chest pain, no palpitations, no edema, no shortness of breath Gastrointestinal: No new onset incontinence, normal bowel movements reported Genitourinary: No new onset incontinence Musculoskeletal: Low back pain Psychiatric: [Normal mood/affect] Neurological: [Denies weakness in extremities], [denies balance issues] Objective:: Physical Exam: General: Alert and oriented x3, no acute distress, pleasant and cooperative Lungs: Respirations even and unlabored, symmetrical chest expansion Eyes: PERRL Musculoskeletal: Flexion and extension of lumbar [spine] somewhat guarded secondary to pain, [antalgic gait noted] Neurological: Speech clear, no gross sensory deficit Skin: Incision sites clean, dry, well approximated with no erythema noted Assessment:: Degenerative disc disease of lumbar spine multilevels with lumbar radiculopathy symptoms, lumbar facet arthropathy, lumbar spondylosis, sacroiliitis, chronic pain Plan:: Patient has had significant improvement following her last visit with her intrathecal increase as well as her spinal cord stimulator programming. Her incision sites are clean, dry, well approximated with minimal erythema noted. She did have the remaining dewayne removed during today's visit and Steri-Strips applied. I have counseled the patient to continue her postop restrictions of minimal bending, lifting, twisting, no submerging in water until her incision is fully healed and to continue using her abdominal binder. Patient will return to clinic in 1 month for reevaluation of symptoms and plan of care. Patient has been instructed to contact the clinic with any concerns before the next appointment. Dr. Goddard has reviewed this note and agrees with this plan of care. This note was dictated using voice recognition software and make contain errors or omissions. -- It Is medically necessary for this patient to continue to have their intrathecal pump refilled at regular intervals. This patient had an intrathecal pain pump implanted after meeting criteria of chronic intractable pain for greater than 3 months and failing conservative treatments. Patient has committed and been compliant to the treatment plan and all planned follow up care. Since implantation of the intrathecal pain pump, the patient has had decreased pain and be
== END ==
PROVIDERS: PCP Emergency Medicine; Visit Provider Nurse Practitioner Family
DX: M51.16 Intervertebral disc disorders with radiculopathy, lumbar region (principal); M47.26 Other spondylosis with radiculopathy, lumbar region; M46.1 Sacroiliitis, not elsewhere classified; G89.29 Other chronic pain
CPT/HCPCS: 62368; 99213; G0463

== ENCOUNTER → 2023-01-18 13:11 | Outpatient (POV) | payer MEDICARE, OTHER, SELFPAY ==
--- NOTE | 2023-01-18 13:40 | EXP.PAIN.SOA ---
[facility] Pain Management SOAP Note Subjective:: Patient is a pleasant 52-year-old female who presents today for follow-up. We are currently treating her for degenerative disc disease of lumbar spine multilevels with lumbar radiculopathy symptoms, lumbar facet arthropathy, lumbar spondylosis, sacroiliitis, chronic pain. Today she rates her pain a 6 out of 10. Patient denies any new trauma or injury. Patient states that overall she has done well with the addition of the spinal cord stimulator implant. She states that she does still have burning sensations in her legs however it is better. She does state that her current programming is working well and does not need any additional adjustments. Patient is currently managed with gabapentin 400 mg 4 times a day, ropinirole 3 mg at bedtime from her primary care doctor and methocarbamol 1000 mg 3 times a day from our office. Patient does have an intrathecal pain pump in place with Dilaudid 20 mg/mL and a daily dose of 10.6 mg/day and bupivacaine 10 mg/mL and a daily dose of 5.3 mg/day. Patient denies any side effects from this medication. Her Sukhjinder is [id number]. Its been reviewed and appropriate. Review of Systems: General: No recent weight changes, no fever, no sleep disturbances Respiratory: No cough, no shortness of air, no recurring pulmonary infections Cardiovascular/peripheral vascular: No chest pain, no palpitations, no edema, no shortness of breath Gastrointestinal: No new onset incontinence, normal bowel movements reported Genitourinary: No new onset incontinence Musculoskeletal: Low back pain, leg pain Psychiatric: [Normal mood/affect] Neurological: [Denies weakness in extremities], [denies balance issues] Objective:: Physical Exam: General: Alert and oriented x3, no acute distress, pleasant and cooperative Lungs: Respirations even and unlabored, symmetrical chest expansion Eyes: PERRL Musculoskeletal: Flexion and extension of lumbar [spine] somewhat guarded secondary to pain, [antalgic gait noted] Neurological: Speech clear, no gross sensory deficit Skin: Clean, dry with no erythema noted Assessment:: Degenerative disc disease of lumbar spine with lumbar radiculopathy symptoms multilevel, lumbar facet arthropathy, lumbar spondylosis, sacroiliitis, chronic pain Plan:: Patient is doing well following her spinal cord stimulator implant and her incisions are fully healed. She does continue to have additional pain in her back and legs. I will refill her methocarbamol 1000 mg 3 times a day and provide a 3-month supply of this medication. I will also contact her at home refill nurse and have her reactivate her PTC device with up to 4 additional doses in a 24-hour period of 10% of her overall medication. Patient will return to clinic in 3 months for reevaluation of her symptoms, medication refill and plan of care. Patient has been instructed to contact the clinic with any concerns before the next appointment. Dr. Goddard has reviewed this note and agrees with this plan of care. This note was dictated using voice recognition software and make contain errors or omissions. -- It Is medically necessary for this patient to continue to have their intrathecal pump refilled at regular intervals. This patient had an intrathecal pain pump implanted after meeting criteria of chronic intractable pain for greater than 3 months and failing conservative treatments. Patient has committed and been compliant to the treatment plan and all planned follow up care. Since implantation of the intrathecal pain pump, the patient has had decreased pain and been more functional. Oral medications have been reduced including intake of oral opioids. Patient continues to do well with intrathecal therapy with decrease in pain symptoms and increase in functional status. Stopping intrathecal medications can lead to life threatening withdrawal, seizures, cardiac arrest, severe pain, and possible . Pumps that are not refilled at regular interval
[2023-01-18 14:45] VITALS: BP 184/70; PULSE 82; RESP 20; BMI 37.8
== END | disposition home or self-care (01) ==
PROVIDERS: PCP Emergency Medicine; Visit Provider Nurse Practitioner Family
DX: M51.16 Intervertebral disc disorders with radiculopathy, lumbar region (principal); M47.16 Other spondylosis with myelopathy, lumbar region; M46.1 Sacroiliitis, not elsewhere classified; G89.29 Other chronic pain
CPT/HCPCS: 99212; G0463

== ENCOUNTER → 2023-04-12 14:51 | Outpatient (CLI) | payer MEDICARE, OTHER, SELFPAY ==
--- NOTE | 2023-04-12 14:54 | XR_ITS ---
FINAL REPORT CLINICAL HISTORY: right heel wound, weight bearing views. FINDINGS: RIGHT FOOT SERIES Three views of the right foot were obtained. There is no acute fracture or dislocation. There is mild degenerative change. There is no soft tissue abnormality. There is a plantar calcaneal spur present. IMPRESSION: Mild degenerative change. Reviewed, Interpreted and Dictated by Lazaro Urbano III, MD Transcribed by Mariam Nelson Authenticated and [facility]
[2023-04-12 15:58] LABS: Basophils % 0.4 % (0.1-2.0); Eosinophils # 0.2 K/mm3 (0.0-0.4); Eosinophils % 2.4 % (0.1-12.0); Hematocrit 46.4 % (37.0-47.0); Hemoglobin 14.7 g/dL (12.2-16.2); Lymphocytes # 2.9 K/mm3 (0.7-4.5); Lymphocytes % 33.2 % (10-50); Mean Corpuscular HGB Conc 31.7 g/dL (31.8-35.4); Mean Corpuscular Hemoglobin 27.3 pg (27.0-31.2); Mean Corpuscular Volume 86.2 fl (81-99); Monocytes # 0.6 K/mm3 (0.1-1.0); Monocytes % 6.5 % (1.7-9.3); Neutrophils # 5.1 K/mm3 (1.8-7.8); Neutrophils % 57.6 % (37.0-80.0); Platelet Count 222 K/mm3 (142-424); Red Blood Count 5.38 M/mm3 (4.20-5.40); Red Cell Distribution Width 13.6 % (11.5-17.5); White Blood Count 8.8 K/mm3 (4.8-10.8)
[2023-04-12 16:42] LABS: Alanine Aminotransferase 25 U/L (12-78); Albumin Level 3.5 g/dl (3.5-5.0); Alkaline Phosphatase 191 U/L (38-126); Anion Gap 6.8 mEq/L (5-15); Aspartate Amino Transferase 27 U/L (14-36); Bilirubin,Total 0.4 mg/dl (0.2-1.3); Blood Urea Nitrogen 12 mg/dl (7-17); Calcium 9.2 mg/dl (8.4-10.2); Carbon Dioxide 33 mmol/L (22.0-30.0); Chloride 98 mmol/L (98-107); Estimated Glomerular Filt Rate 129 ml/min (>60); GFR (African American) 156 ML/MIN (>60); Globulin 3.4 g/dL (1.3-3.2); Glucose 240 mg/dl (74-100); Potassium 4.8 mmoL/L (3.5-5.1); Sodium 133 mmol/L (136-145); Total Protein,Serum 6.9 g/dl (6.3-8.2)
[2023-04-12 16:47] LABS: C-Reactive Protein 3.8 mg/L (0-4)
[2023-04-12 16:53] LABS: Erythrocyte Sedimentation Rate 42 mm/hr (0-30)
== END ==
PROVIDERS: PCP Emergency Medicine; Visit Provider Nurse Practitioner Family
DX: E11.621 Type 2 diabetes mellitus with foot ulcer (principal); Z51.89 Encounter for other specified aftercare; S91.301A Unspecified open wound, right foot, initial encounter; L97.511 Non-pressure chronic ulcer of other part of right foot limited to breakdown of skin; Z79.4 Long term (current) use of insulin
CPT/HCPCS: 36415; 73630; 80053; 85025; 85651; 86140; 87070; 87077; 87186; 87205

== ENCOUNTER → 2023-04-16 14:24 | Outpatient (POV) | payer MEDICARE, OTHER, SELFPAY ==
--- NOTE | 2023-04-16 14:50 | EXP.PAIN.SOA ---
[facility] Pain Management SOAP Note Subjective:: Patient is a pleasant 52-year-old female who presents today for follow-up. We are currently treating the patient for degenerative disc disease of lumbar spine with lumbar radiculopathy symptoms, lumbar spondylosis, sacroiliitis, chronic pain today she rates her pain a 6 out of 10. Patient denies any new trauma or injury. She denies any change to location or type of pain she experiences. She does state that she continues to have significant issues in her low back with weakness into her bilateral lower extremities and that her legs will just randomly give out and she will fall. Previously we had submitted for an MRI of her lumbar spine without contrast however it was denied by insurance. She does state today that she has talked to insurance and they stated they were waiting on our office to send something over. Patient does have a spinal cord stimulator in place that she states is working well and does not need any additional adjustment. Patient does also have an intrathecal pump in with Dilaudid 20 mg/mL with 10.6 mg/day and bupivacaine 10 mg/mL with a daily dose of 5.3 mg/day. Patient denies any side effects from this medication. 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 Patient is also managed with gabapentin 400 mg 4 times a day and ropinirole 3 mg at bedtime from her primary care doctor. We do prescribe methocarbamol 1000 mg 3 times a day. She denies any side effects from this medication. She is requesting a refill at today's visit. Her Sukhjinder is [phone]. It has been reviewed and appropriate. Review of Systems: General: No recent weight changes, no fever, no sleep disturbances Respiratory: No cough, no shortness of air, no recurring pulmonary infections Cardiovascular/peripheral vascular: No chest pain, no palpitations, no edema, no shortness of breath Gastrointestinal: No new onset incontinence, normal bowel movements reported Genitourinary: No new onset incontinence Musculoskeletal: Low back pain, bilateral leg pain/weakness Psychiatric: [Normal mood/affect] Neurological: [Denies weakness in extremities], [denies balance issues] Objective:: Physical Exam: General: Alert and oriented x3, no acute distress, pleasant and cooperative Lungs: Respirations even and unlabored, symmetrical chest expansion Eyes: PERRL Musculoskeletal: Flexion and extension of lumbar [spine] somewhat guarded secondary to pain, [antalgic gait noted] Neurological: Speech clear, no gross sensory deficit Assessment:: Degenerative disc disease of lumbar spine with lumbar radiculopathy symptoms, lumbar spondylosis, sacroiliitis, chronic pain Plan:: Patient continues to experience significant pain in her low back with weakness and numbness in her legs. She did have limited range of motion of her lumbar spine during today's visit. Patient is experiencing more falls due to her bilateral lower extremities giving out at random times and does cause significant disability. We will resubmit for a lumbar MRI without contrast. I will also refill the patient's methocarbamol 1000 mg 3 times daily and provide a 1 month supply of this medication. Patient is unable to tolerate this physical therapy due to significant difficulties with ambulation related to morbid obesity as well as comorbidities of angina history, and worsening pain. Patient will return to clinic following her lumbar MRI imaging for reevaluation of symptoms and plan of care. Patient has been instructed to contact the clinic with any concerns before the next appointment. Dr. Goddard has reviewed this note and agrees with this plan of care. This note was dictated using voice recognition software and make contain errors or omissions. -- It Is medically necessary for this patient to continue to have their intrathecal pump refilled at regular intervals. This patient had an intrathecal pain pump implanted after meeting criteria of chronic intractable pain for greater than 3 months and fail
[2023-04-16 14:55] VITALS: BP 193/74; PULSE 77; RESP 18; O2SAT 97; BMI 40.8
== END | disposition home or self-care (01) ==
PROVIDERS: PCP Emergency Medicine; Visit Provider Nurse Practitioner Family
DX: M51.16 Intervertebral disc disorders with radiculopathy, lumbar region (principal); M47.26 Other spondylosis with radiculopathy, lumbar region; M46.1 Sacroiliitis, not elsewhere classified; G89.29 Other chronic pain; Z96.82 Presence of neurostimulator
CPT/HCPCS: 99212; G0463

== ENCOUNTER → 2023-05-08 10:39 | Outpatient (CLI) | payer MEDICARE, OTHER, SELFPAY ==
--- NOTE | 2023-05-08 | US_ITS ---
FINAL REPORT CLINICAL HISTORY: bilateral neuropathy, obesity, HTN, hyperlipidemia, current smoker, bilateral rest pain, bilateral claudication, right heel blister/ulcer x 3 weeks. COMPARISON: None FINDINGS: LOWER EXTREMITY SEGMENTAL PRESSURE MEASUREMENTS FINDINGS: Pressure indices are as follows: RIGHT LOWER EXTREMITY: Right AUBRIE: 1.22 Right TBI: 0.78 Comments: Diminished pulses in the right lower extremity, abnormal right thigh waveform LEFT LOWER EXTREMITY: Left AUBRIE: 1.26 Left TBI: 0.71 Comments: IMPRESSION: No evidence of significant vascular stenosis. Would suggest CT angiography of the lower extremities for further evaluation. Reviewed, Interpreted and Dictated by Lazaro Urbano III, MD Transcribed by Bebe Red Authenticated and [facility]
== END ==
PROVIDERS: PCP Emergency Medicine; Visit Provider Nurse Practitioner Family
DX: I70.213 Atherosclerosis of native arteries of extremities with intermittent claudication, bilateral legs (principal)
CPT/HCPCS: 93923

== ENCOUNTER → 2023-05-22 09:52 | Outpatient (CLI) | payer MEDICARE, OTHER, SELFPAY ==
[2023-05-22 10:52] LABS: Hemoglobin A1C 10.7 % (4.0-6.0)
== END ==
PROVIDERS: PCP Emergency Medicine; Visit Provider Nurse Practitioner Family
DX: E11.69 Type 2 diabetes mellitus with other specified complication (principal); Z79.4 Long term (current) use of insulin
CPT/HCPCS: 36415; 83036

== ENCOUNTER 2023-05-25 11:55 | Emergency (ER) | payer MEDICARE, OTHER, SELFPAY ==
[2023-05-25 11:55] VITALS: BP 169/73; PULSE 88; RESP 20; TEMP 36.9; O2SAT 95; BMI 43.5
[2023-05-25 12:30] VITALS: BP 143/70; PULSE 70; RESP 20; O2SAT 92
--- NOTE | 2023-05-25 12:32 | PC.NURSE ---
DR PEARCE AT BEDSIDE
--- NOTE | 2023-05-25 12:39 | CT_ITS ---
FINAL REPORT TECHNIQUE: Post contrast axial imaging of the aorta and bilateral lower extremity was obtained and reviewed. This study was performed with techniques to keep radiation doses as low as reasonably achievable (ALARA). Individualized dose reduction techniques using automated exposure control or adjustment of mA and/or kV according to the patient''s size were employed. CLINICAL HISTORY: with runoff through the feet; RLE pain, abn ABIs recent right foot debridement FINDINGS: The lung bases are clear. The liver parenchyma is homogeneous. Gallstone is seen in the dependent portion of the gallbladder. The spleen, pancreas, adrenals, and kidneys appear unremarkable. There are stimulator devices in the superior gluteal regions bilaterally apparently related to spinal stimulators. There is no pelvic mass or inflammation. CTA: The celiac axis and SMA are patent. There is moderate narrowing of the proximal right renal artery measuring 50%. The DORIE is patent. Abdominal aorta is of normal caliber. The iliac vessels are widely patent. Right leg: The SFA is patent. The popliteal artery is not well seen due to streak artifact from knee prosthesis. The tibial vessels appear patent to the foot. Left leg: The SFA is patent. The popliteal artery is not well seen due to streak artifact from knee prosthesis. The tibial vessels appear patent to the foot. There is extensive subcutaneous edema in the lower legs which may be due to cellulitis. IMPRESSION: No significant arterial stenosis seen in the visualized segments. Reviewed, Interpreted and Dictated by Agustin Frazier MD Transcribed by Vida Rodriguez Authenticated and [facility]
--- NOTE | 2023-05-25 12:39 | CA_ITS ---
FINAL REPORT TECHNIQUE: Multiple transverse and longitudinal images were performed of the right femoral-popliteal deep venous system with augmentation and compression maneuvers. CLINICAL HISTORY: RLE pain, DIABETIC OBESE SMOKER WITH UNHEALING RIGHT HEEL WOUND. edema FINDINGS: Right lower extremity duplex ultrasound demonstrates normal flow in the deep venous system. There is no abnormal echogenicity to suggest thrombus. There is normal compression and augmentation. IMPRESSION: No evidence of right DVT. Reviewed, Interpreted and Dictated by Agustin Frazier MD Transcribed by Vida Rodriguez Authenticated and [facility]
--- NOTE | 2023-05-25 12:42 | HMH.EDGENADL ---
Discharge Plan Disposition Patient Disposition: Home, Self-Care Prescriptions Prescriptions: No Action insulin glargine 100 unit/mL (3 mL) insulin pen 10 unit SQ HS Qty: 15 2RF ondansetron 4 mg tablet,disintegrating 4 mg PO Q8H PRN (Reason: nausea and vomiting) Qty: 30 0RF carvedilol 25 mg tablet 25 mg PO BID 90 Days Qty: 180 2RF duloxetine 60 mg capsule,delayed release(DR/EC) 60 mg PO DAILY Qty: 90 2RF escitalopram oxalate 20 mg tablet 20 mg PO DAILY Qty: 90 2RF fenofibrate 54 mg tablet 54 mg PO DAILY Qty: 90 2RF furosemide [Lasix] 80 mg tablet 80 mg PO BID Qty: 180 2RF isosorbide mononitrate 30 mg tablet extended release 24 hr 30 mg PO DAILY Qty: 90 2RF levothyroxine 200 mcg tablet 200 mcg PO DAILY Qty: 90 2RF lisinopril 2.5 mg tablet 2.5 mg PO DAILY Qty: 90 2RF pantoprazole 40 mg tablet,delayed release (DR/EC) See Rx Instructions .ROUTE .COMPLEX Qty: 90 0RF Dose Instruction: TAKE 1 TABLET BY MOUTH ONCE DAILY Rx Instructions: TAKE 1 TABLET BY MOUTH ONCE DAILY ropinirole 3 mg tablet See Rx Instructions .ROUTE .COMPLEX Qty: 90 0RF Dose Instruction: TAKE 1 TABLET BY MOUTH AT BEDTIME Rx Instructions: TAKE 1 TABLET BY MOUTH AT BEDTIME trazodone 150 mg tablet See Rx Instructions .ROUTE .COMPLEX Qty: 30 1RF Dose Instruction: TAKE 1 TABLET BY MOUTH DAILY Rx Instructions: TAKE 1 TABLET BY MOUTH DAILY (DME) FreeStyle Joelle 14 Day Sensor Kit See Rx Instructions .ROUTE .COMPLEX Qty: 1 0RF Dose Instruction: DIRECTED Rx Instructions: DIRECTED Humulin 70/30 U-100 KwikPen 100 unit/mL (70-30) insulin pen See Rx Instructions .ROUTE .COMPLEX Qty: 15 0RF Dose Instruction: 63 UNIT (0.6 ML) SQ TWICE DAILY FOR DIABETES Rx Instructions: 63 UNIT (0.6 ML) SQ TWICE DAILY FOR DIABETES (DME) flash glucose sensor 1 EACH kit See Rx Instructions .Route CONT Rx Instructions: change sensor every 14 days diclofenac sodium 1 % gel 2 g topical QID Rx Instructions: apply to single elbow, wrist or hand; for hand includes palm/fingers/back of hand (DME) [employer] Joelle 14 Day [place] Misc See Rx Instructions .Route Rx Instructions: As directed gabapentin 400 mg capsule 400 mg PO QID Qty: 120 5RF methocarbamol 1,000 mg tablet 1,000 mg PO TID Qty: 90 2RF semaglutide 1 mg/dose (4 mg/3 mL) pen injector 1 mg SQ WEEKLY Referrals Follow up/Referrals: Adelso Goddard MD [Staff Physician] - See instructions Faustino Amador MD [Primary Care Provider] - See instructions Activity Restrictions/Add. Instructions Additional Instructions/Restrictions: Please follow-up with Dr. Goddard for treatment of your chronic neuropathic pain. No emergent medical condition was identified today. Return with other concerns Clinical Impressions Clinical Impression: Intractable neuropathic pain of right lower extremity Discharge ED Provider: Elba Sosa General Adult HPI General Chief complaint: PAIN Stated complaint: leg pain Time Seen by Provider: 05/25/23 12:17 Mode of Arrival: EMS Limitations: No Limitations Description of Symptoms (Recalled from ER Triage Doc. by RN): PT WITH C/O RIGHT LOWER LEG PAIN. PT STATES PAIN STARTED ABOUT 0300. NO INJURY, HAS HAD SIMILAR PAIN IN PAST THAT RESOLVED WITHOUT INTERVENTION. PT HAS HEEL DEBRIDEMENT ON SUNDAY History of Present Illness HPI narrative: Patient is a morbidly obese 53-year-old female with chronic right lower extremity radicular pain. She is followed by Dr. Goddard and has an intrathecal pain pump dispenses Dilaudid 0.5 mg every 3 hours. She called EMS today for acute on chronic worsening of her right lower extremity pain particularly pain and swelling on the lateral aspect of her right lower leg extending all the way down into her foot. She recently had ABIs that were performed which were abnormal and recommend
--- NOTE | 2023-05-25 12:51 | PC.NURSE ---
CV LAB AT BEDSIDE FOR DOPPLER
[2023-05-25 13:06] LABS: Basophils % 0.3 % (0.1-2.0); Eosinophils # 0.2 K/mm3 (0.0-0.4); Eosinophils % 2.1 % (0.1-12.0); Hematocrit 43.2 % (37.0-47.0); Hemoglobin 14.4 g/dL (12.2-16.2); Lymphocytes # 1.7 K/mm3 (0.7-4.5); Lymphocytes % 20.3 % (10-50); Mean Corpuscular HGB Conc 33.4 g/dL (31.8-35.4); Mean Corpuscular Hemoglobin 28.7 pg (27.0-31.2); Mean Corpuscular Volume 85.7 fl (81-99); Monocytes # 0.6 K/mm3 (0.1-1.0); Monocytes % 7.3 % (1.7-9.3); Platelet Count 204 K/mm3 (142-424); Red Blood Count 5.04 M/mm3 (4.20-5.40); Red Cell Distribution Width 13.7 % (11.5-17.5); White Blood Count 8.6 K/mm3 (4.8-10.8)
[2023-05-25 13:07] LABS: Chloride 100 mmol/L (98-107); Potassium 4.1 mmoL/L (3.5-5.1); Sodium 136 mmol/L (136-145)
[2023-05-25 13:09] LABS: Blood Urea Nitrogen 13 mg/dl (7-17); Creatinine Clearance Estimated 120 mL/min (50-200); Estimated Glomerular Filt Rate 129 ml/min (>60); GFR (African American) 156 ML/MIN (>60)
[2023-05-25 13:10] LABS: Alanine Aminotransferase 23 U/L (12-78); Albumin Level 3.1 g/dl (3.5-5.0); Albumin/Globulin Ratio 0.8 (1.1-1.8); Alkaline Phosphatase 161 U/L (38-126); Anion Gap 9.1 mEq/L (5-15); Aspartate Amino Transferase 31 U/L (14-36); Bilirubin,Total 0.4 mg/dl (0.2-1.3); Carbon Dioxide 31 mmol/L (22.0-30.0); Creatine Kinase 70 U/L (30-135); Globulin 3.8 g/dL (1.3-3.2); Glucose 211 mg/dl (74-100); Total Protein,Serum 6.9 g/dl (6.3-8.2)
--- NOTE | 2023-05-25 13:30 | PC.NURSE ---
PT TO CT
--- NOTE | 2023-05-25 13:48 | PC.NURSE ---
PT RETURNED FROM CT
--- NOTE | 2023-05-25 13:55 | PC.NURSE ---
PT ASSISTED TO [facility]
--- NOTE | 2023-05-25 14:05 | PC.NURSE ---
PT C/O PAIN UNRELIEVED BY PRIOR MEDICATION. MD NOTIFIED, NO NEW ORDERS
--- NOTE | 2023-05-25 14:20 | PC.NURSE ---
DR PEARCE AT BEDSIDE TO UPDATE PT
[2023-05-25 15:04] VITALS: BP 135/53; PULSE 78; RESP 16; TEMP 36.9; O2SAT 96
== END 2023-05-25 15:04 | disposition home or self-care (01) ==
PROVIDERS: Emergency Provider Student in an Organized Health Care Education/Training Program; PCP Emergency Medicine
DX: M79.2 Neuralgia and neuritis, unspecified (principal); E11.610 Type 2 diabetes mellitus with diabetic neuropathic arthropathy; E11.65 Type 2 diabetes mellitus with hyperglycemia; E66.01 Morbid (severe) obesity due to excess calories; F17.210 Nicotine dependence, cigarettes, uncomplicated; Z79.4 Long term (current) use of insulin
CPT/HCPCS: 75635; 80053; 82550; 85025; 86140; 93971; 96361; 96374; 96375; 99285; J0131; J2405; Q9967

== ENCOUNTER 2024-06-17 13:04 | Day surgery (SDC) | payer MEDICARE, OTHER, SELFPAY ==
[2024-06-17 13:48] VITALS: BP 144/62; PULSE 86; RESP 16; TEMP 36.3; O2SAT 94; BMI 39.4
[2024-06-17 14:14] VITALS: BP 156/73; PULSE 82; RESP 18; O2SAT 95
--- NOTE | 2024-06-17 14:22 | P.PCN_ITS ---
Procedure Date: 06/17/24 Time: 14:00 Anesthesiologist:: Niraj Rodriguez CRNA Complications:: None Pre-procedure Diagnosis:: Degenerative disc lumbar spine multilevels. Lumbar radiculopathy. Lumbar spondylosis. Multilevel lumbar facet arthropathy. Sacroiliitis. Chronic pain syndrome. Post-procedure Diagnosis:: Same. Indications for Procedure:: Patient is a very pleasant 54-year-old female comes our clinic today for intrathecal pain pump interrogation and refill. Patient currently being managed with hydromorphone 20 mg/mL at 10.6 mg/day. Also bupivacaine 10 mg/mL at 5.3 mg/day. She is not reporting side effects or complications. She is not requesting any changes. Patient is awake alert [place] x 3. No acute distress. Flexion-extension lumbar spine somewhat guarded secondary pain. Deep tendon reflexes upper lower extremities were normal. Motor strength upper and lower extremities normal. There is no gross sensory deficit. Gait is normal. Procedure Details:: Details of the procedure explained to the patient. The patient taken procedure room placed in sitting position. They over the pumps cleansed using chlorhexidine as a cleansing solution. The pump was interrogated. The pump was accessed with ease using a 22-gauge inch and half needle. 7.5 mL of solution was withdrawn discarded appropriate. The pump was then filled with 20 cc of solution containing hydromorphone 20 mg/mL and bupivacaine 10 mg/mL. No change in rate. Patient tolerated procedure without difficulty. No complications. Plan and Disposition:: Patient was discharged without incident.
== END 2024-06-17 14:14 | disposition home or self-care (01) ==
PROVIDERS: PCP Nurse Practitioner; Visit Provider Nurse Anesthetist, Certified Registered
DX: M51.16 Intervertebral disc disorders with radiculopathy, lumbar region (principal); M47.26 Other spondylosis with radiculopathy, lumbar region; M46.1 Sacroiliitis, not elsewhere classified; G89.4 Chronic pain syndrome
CPT/HCPCS: 95991

== ENCOUNTER 2024-07-01 15:00 | Outpatient (RCR) | payer MEDICARE, OTHER, SELFPAY | END 2024-07-01 23:59 | disposition home or self-care (01) | LOC: PT 15:00 | PROVIDERS: Visit Provider Nurse Practitioner | DX: I89.0 Lymphedema, not elsewhere classified (principal) | CPT/HCPCS: 97163; 97597 ==

== ENCOUNTER 2024-07-01 18:22 | Inpatient (IN) | payer MEDICARE, OTHER, SELFPAY ==
[2024-07-01] VITALS (7 sets, daily range): BP systolic 133–189; BP diastolic 71–94; PULSE 78–109; RESP 16–20; TEMP 36.3–36.9; O2SAT 90–97; BMI 39.4; BMI 39.1
--- NOTE | 2024-07-01 18:25 | ED_ITS ---
Discharge Plan Disposition Patient Disposition: Admitted Condition: Serious Clinical Impressions Clinical Impression: Soft tissue infection of foot, Diabetic foot ulcer Osteomyelitis Qualifiers: Osteomyelitis type: unspecified type Osteomyelitis location: foot Laterality: r ight Qualified Code(s): M86.9 - Osteomyelitis, unspecified Discharge ED Provider: David Rosario General Adult HPI <FLORES Adler - Last Filed: 07/01/24 22:03> General Chief complaint: Extremity Problem,Nontraumatic Stated complaint: RT foot swelling, hot Time Seen by Provider: 07/01/24 18:24 History of Present Illness HPI narrative: Patient presents from the lymphedema clinic for right foot pain erythema. Patient has longstanding diabetic foot ulcer, morbid obesity, chronic bilateral lower extremity lymphedema, chronic back pain who follows with Dr. Goddard, and recurrent bilateral diabetic feet ulcers most recently in the right foot. Patient reports increasing pain and up until May was followed at the [facility] wound care clinic. Patient denies fever chest pain shortness of breath hemoptysis hematochezia melena nausea vomiting diarrhea. Related Data Home Medications ?Medication ?Instructions ?Recorded ?Confirmed flash glucose sensor 05/04/22 06/17/24 diclofenac sodium 1 % topical gel 2 g topical QID joint pain 07/11/22 06/17/24 flash glucose scanning reader 08/14/22 06/17/24 ([employer] Joelle [employer] Day [place]) semaglutide 1 mg/dose (4 mg/3 mL) 1 mg SQ WEEKLY Diabetes 04/16/23 06/17/24 subcutaneous pen injector Previous Rx's ?Medication ?Instructions ?Recorded gabapentin 400 mg capsule 400 mg PO QID NEUROPATHY #120 caps 01/12/23 carvedilol 25 mg tablet 25 mg PO BID High blood pressure 02/15/23 90 days #180 tabs duloxetine 60 mg capsule,delayed 60 mg PO DAILY MOOD #90 caps 02/15/23 release escitalopram oxalate 20 mg tablet 20 mg PO DAILY Depression #90 tabs 02/15/23 fenofibrate 54 mg tablet 54 mg PO DAILY Cholesterol #90 tabs 02/15/23 furosemide 80 mg tablet (Lasix) 80 mg PO BID fluid #180 tabs 02/15/23 insulin glargine 100 unit/mL (3 10 unit (0.1 mL) SQ HS Diabetes 02/15/23 mL) subcutaneous pen #15 mL isosorbide mononitrate 30 mg 30 mg PO DAILY Hypertension #90 02/15/23 tablet,extended release 24 hr tabs levothyroxine 200 mcg tablet 200 mcg PO DAILY THYROID #90 tabs 02/15/23 lisinopril 2.5 mg tablet 2.5 mg PO DAILY Hypertension #90 02/15/23 tabs methocarbamol 1,000 mg tablet 1,000 mg PO TID muscle spasms #90 04/16/23 tabs pantoprazole 40 mg tablet,delayed See Rx Instructions .Route 04/24/23 release .COMPLEX #90 tabs ropinirole 3 mg tablet See Rx Instructions .Route 04/24/23 .COMPLEX #90 tabs insulin NPH-regular 70-30 U-100 See Rx Instructions .Route 05/24/23 insulin 100 unit/mL subcutaneous .COMPLEX #15 mL pen (Humulin 70/30 U-100 KwikPen) ondansetron 4 mg disintegrating See Rx Instructions .Route 05/31/23 tablet .COMPLEX #30 tabs flash glucose sensor (FreeStyle #1 ea 06/15/23 Joelle 14 Day Sensor kit) trazodone 150 mg tablet See Rx Instructions .Route 07/12/23 .COMPLEX #30 tabs mupirocin 2 % topical ointment 1 applic topical BID infection 10 01/23/24 days #15 grams Allergies Allergy/AdvReac Type Severity Reaction Status Date / Time ceftriaxone [From ROCEPHIN] Allergy Unknown Verified 01/23/24 14:56 droperidol [From INAPSINE] Allergy Unknown Verified 01/23/24 14:56 ibuprofen [IBUPROFEN] Allergy Unknown Verified 01/23/24 14:56 moxifloxacin [From AVELOX] Allergy Unknown Verified 01/23/24 14:56 [facility] <FLORES Adler - Last Filed: 07/01/24 22:03> [facility] Disclaimer: The information contained in this section may have been updated after the patient was seen, as this information can be updated by other users. 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 Type 2 diabetes mellitus Diabetic foot Surgical History Total knee replacement status bilateral Family History Other Family history of COPD (chronic obstructive pulmonary disease) Family history of cancer Family history of diabetes mellitus type II Family history of hypertension Family history of myocardial infarction Social History Smoking Status: Current some day smoker tobacco type: cigarettes packs per day: 1 second hand exposure: Yes alcohol intake: never substance use type: denies use current occupational status: other Travel in the last 8 weeks: None household members: friend(s) housing: house lives independently: Yes marital status: single education level: high school current occupation: [employer] caffeine: Yes special heather needs: No agree to transfusion: No do you feel safe at home: Yes victim of physical abuse: No victim of emotional abuse: No victim of sexual abuse: No would you like helpful sources: No Other Medical History Have you received the Flu Vaccine for this season: No Have you received the Pneumonia Vaccine: No <FLORES Adler - Last Filed: 07/01/24 22:03> ROS Obtained: Yes Systems reviewed as appropriate & no additional complaints except as documented Physical Exam <FLORES Adler - Last Filed: 07/01/24 22:03> General General appearance: alert and in no apparent distress Respiratory Respiratory exam: Present normal lung sounds bilaterally Cardiovascular Cardiovascular exam: Present tachycardia Extremities Exam Extremities exam: Present normal inspection Neurological Exam Neurological exam: Present alert and oriented X3 Medical Decision Making <FLORES Adler - Last Filed: 07/01/24 22:03> Medical Records Medical records reviewed: Yes I reviewed the patient's medical records. Screening: Per USPSTF and CDC recommendations, given the prevalence of disease in our region, it is our hospital?s policy to screen for HIV and viral Hepatitis for all patients aged 18 and over and those with ongoing risk factors. Sukhjinder Inquiry Pt receiving controlled substance: No Vital Signs: 07/01/24 18:24 07/01/24 19:00 07/01/24 19:54 Temperature 98.5 F Temperature Source Oral Pulse Rate 91 H 86 Pulse Rate [Right] 109 H Respiratory Rate 20 Blood Pressure 169/82 H 156/75 H Blood Pressure [Right Arm] 189/87 H Blood Pressure Mean [Right Arm] 121 Blood Pressure Source Blood Pressure Position 02 Sat by Pulse Oximetry 90 L 90 L 95 Oxygen Delivery Method Room Air 07/01/24 20:01 07/01/24 20:31 07/01/24 20:47 Temperature 97.9 F Temperature Source Oral Pulse Rate 84 86 92 H Pulse Rate [Right] Respiratory Rate 16 Blood Pressure 169/71 H 178/94 H 168/92 H Blood Pressure [Right Arm] Blood Pressure Mean [Right Arm] Blood Pressure Source Automatic Cuff Blood Pressure Position Sitting 02 Sat by Pulse Oximetry 95 96 Oxygen Delivery Method Room Air Lab Data Lab results reviewed: Yes I reviewed the patient's lab results. Lab Results 07/01/24 18:45: WBC 12.0 H, RBC 5.36, Hgb 16.1, Hct 50.1 H, MCV 93.5, MCH 30.0, MCHC 32.1, RDW 14.5, Plt Count 286, MPV 7.0 L, Neut % (Auto) 75.1, Lymph % (Auto) 16.2, [place] % (Auto) 6.2, Eos % (Auto) 1.9, Baso % (Auto) 0.7, Neut # (Auto) 9.0 H, Lymph # (Auto) 2.0, [place] # (Auto) 0.7, Eos # (Auto) 0.2, Baso # (Auto) 0.1, ESR 16, Sodium 133 L, Potassium 4.1, Chloride 96 L, Carbon Dioxide 34 H, Anion Gap 7.1, BUN 10, Creatinine 0.60, Estimated Creat Clear 185, Estimated GFR 104, Est GFR ( Amer) 126, Glucose 116 H, Lactate 0.7, Calcium 9.3, Total Bilirubin 0.7, AST 24, ALT 14, Alkaline Phosphatase 129 H, C- Reactive Protein 53.3 H, Total Protein 8.2, Albumin 3.8, Globulin 4.4 H, A lbumin/Globulin Ratio 0.9 L, Procalcitonin 0.046, HIV 1&2 Antibody Rapid Nonreactive 07/01/24 19:22: VBG pH 7.39, VBG pCO2 40.3, VBG pO2 28.6, VBG HCO3 24.0, VBG Total CO2 25.3, VBG O2 Saturation 69.2, VBG Base Excess -0.9, VBG Lactic Acid 4.6 H 07/01/24 18:45 07/01/24 18:45 Orders (Tests/Meds): ED MEDICATIONS Generic Name Dose Route Start Last Admin Trade Name Freq PRN Reason Stop Dose Admin Heparin Sodium (Porcine) 5,000 unit 07/01/24 20:45 Heparin Sodium 5,000 Unit/Ml Vial SQ 07/31/24 20:44 Q8H TANNER Miscellaneous 1 each 07/01/24 18:45 07/01/24 19:18 Vancomycin Consult Request NOTAPPLIC 07/31/24 18:44 1 each CONSULT PHARMACY TANNER Administration Sodium Chloride 10 ml 07/01/24 19:38 07/01/24 19:41 Sodium Chloride 0.9% 10ml Syr (Rad Only) IV 07/31/24 19:37 10 ml NEEDED PRN Administration Maintain IV Site Discontinued Medications Generic Name Dose Route Start Last Admin Trade Name Freq PRN Reason Stop Dose Admin Acetaminophen 1,000 mg 07/01/24 18:38 07/01/24 19:02 Acetaminophen 1,000mg/100ml Vial IV 07/01/24 18:39 1,000 mg ONCE ONE Administration Lactated Ringer's 1,000 mls @ 999 mls/hr 07/01/24 18:38 07/01/24 19:02 Lactated Ringer's 1000 Ml Bag IV 07/01/24 19:38 999 mls/hr .Q1H1M ONE Administration Vancomycin HCl 2,500 mg/ 250 mls @ 125 mls/hr 07/01/24 19:00 07/01/24 19:29 Sodium Chloride IV 07/01/24 20:59 125 mls/hr ONCE ONE Administration Iopamidol 120 ml 07/01/24 19:38 07/01/24 19:41 Iopamidol-370 (76%);100ml Bottle IV 07/01/24 19:39 120 ml ONCE ONE Administration Oxycodone HCl 5 mg 07/01/24 18:38 07/01/24 19:02 Oxycodone 5mg Immediate Release Tablet PO 07/01/24 18:39 5 mg ONCE ONE Administration Sodium Chloride 50 ml 07/01/24 19:38 07/01/24 19:40 0.9 % Sodium Chloride 50 Ml Vial IV 07/01/24 19:39 50 ml ONCE ONE Administration ORDERS Category Date Time Status CT foot RT w con Stat Cat Scan 07/01/24 18:37 Completed Basic Metabolic Panel AMLAB Lab 07/02/24 06:00 Ordered Basic Metabolic Panel AMLAB Lab 07/03/24 06:00 Ordered Basic Metabolic Panel AMLAB Lab 07/04/24 06:00 Ordered Basic Metabolic Panel AMLAB Lab 07/05/24 06:00 Ordered CBC w/Auto Diff [Complete Blood Count Auto Diff] Stat Lab 07/01/24 18:45 Completed CMP [Comprehensive Metabolic Panel] Stat Lab 07/01/24 18:45 Completed CRP [C-Reactive Protein] Stat Lab 07/01/24 18:45 Completed Complete Blood Count Auto Diff AMLAB Lab 07/02/24 06:00 Ordered Complete Blood Count Auto Diff AMLAB Lab 07/03/24 06:00 Ordered Complete Blood Count Auto Diff AMLAB Lab 07/04/24 06:00 Ordered Complete Blood Count Auto Diff AMLAB Lab 07/05/24 06:00 Ordered ESR [Erythrocyte Sedimentation Rate] Stat Lab 07/01/24 18:45 Completed HIV (1&2) Antibody Rapid Stat Lab 07/01/24 18:45 Completed Hep C Ab with Reflex to RNA Stat Lab 07/01/24 18:45 Completed Lactic Acid Stat Lab 07/01/24 18:45 Completed Procalcitonin Stat Lab 07/01/24 18:45 Completed Blood Culture Stat Micro 07/01/24 19:25 Received VBG [Venous Blood Gas] Stat RT 07/01/24 19:22 Completed Medical Decision Narrative: In summary patient is a 54-year-old female who presents to the emergency department for evaluation of right foot diabetic foot ulcer. Patient is hypertensive on arrival at 189/87 tachycardic on arrival at 109 upon arrival, but otherwise hemodynamically stable and afebrile. Physical exam is remarkable for a diabetic foot ulcer at the base of the fifth metatarsal with necrotic looking central ulcer approximately a quarter in size with surrounding erythema edema and pain. There is purulent debris expressed from the wound.. Differential diagnosis includes abscess versus necrotizing soft tissue infection versus osteomyelitis versus sepsis etc. initial workup will be conducted with CT scan of the foot, hematologic labs, blood culture. Initial interventions include crystalloid bolus vancomycin after blood cultures drawn Tylenol and oxycodone as patient has an allergy to ibuprofen. Initial workup reviewed by me slightly elevated white count normal sed rate and my informal interpretation of her plain film x-ray shows bony destruction at the proximal end of the metatarsal along with what appears to be an abscess on her CT scan prior to radiology read but no gas. Given this had interactive discussion about her findings and I recommended admission and patient understood and agreed. Given that I had interact discussion with hospital medicine about patient management and she will be admitted for further evaluation and care and possible operative intervention tomorrow <David Rosario MD - Last Filed: 07/01/24 22:16> Vital Signs: 07/01/24 18:24 07/01/24 19:00 07/01/24 19:54 Temperature 98.5 F Temperature Source Oral Pulse Rate 91 H 86 Pulse Rate [Right] 109 H Respiratory Rate 20 Blood Pressure 169/82 H 156/75 H Blood Pressure [Right Arm] 189/87 H Blood Pressure Mean [Right Arm] 121 Blood Pressure Source Blood Pressure Position 02 Sat by Pulse Oximetry 90 L 90 L 95 Oxygen Delivery Method Room Air 07/01/24 20:01 07/01/24 20:31 07/01/24 20:47 Temperature 97.9 F Temperature Source Oral Pulse Rate 84 86 92 H Pulse Rate [Right] Respiratory Rate 16 Blood Pressure 169/71 H 178/94 H 168/92 H Blood Pressure [Right Arm] Blood Pressure Mean [Right Arm] Blood Pressure Source Automatic Cuff Blood Pressure Position Sitting 02 Sat by Pulse Oximetry 95 96 Oxygen Delivery Method Room Air Lab Data Lab Results 07/01/24 18:45: WBC 12.0 H, RBC 5.36, Hgb 16.1, Hct 50.1 H, MCV 93.5, MCH 30.0, MCHC 32.1, RDW 14.5, Plt Count 286, MPV 7.0 L, Neut % (Auto) 75.1, Lymph % (Auto) 16.2, [place] % (Auto) 6.2, Eos % (Auto) 1.9, Baso % (Auto) 0.7, Neut # (Auto) 9.0 H, Lymph # (Auto) 2.0, [place] # (Auto) 0.7, Eos # (Auto) 0.2, Baso # (Auto) 0.1, ESR 16, Sodium 133 L, Potassium 4.1, Chloride 96 L, Carbon Dioxide 34 H, Anion Gap 7.1, BUN 10, Creatinine 0.60, Estimated Creat Clear 185, Estimated GFR 104, Est GFR ( Amer) 126, Glucose 116 H, Lactate 0.7, Calcium 9.3, Total Bilirubin 0.7, AST 24, ALT 14, Alkaline Phosphatase 129 H, C- Reactive Protein 53.3 H, Total Protein 8.2, Albumin 3.8, Globulin 4.4 H, A lbumin/Globulin Ratio 0.9 L, Procalcitonin 0.046, HIV 1&2 Antibody Rapid Nonreactive 07/01/24 19:22: VBG pH 7.39, VBG pCO2 40.3, VBG pO2 28.6, VBG HCO3 24.0, VBG Total CO2 25.3, VBG O2 Saturation 69.2, VBG Base Excess -0.9, VBG Lactic Acid 4.6 H Orders (Tests/Meds): ED MEDICATIONS Generic Name Dose Route Start Last Admin Trade Name Freq PRN Reason Stop Dose Admin Heparin Sodium (Porcine) 5,000 unit 07/01/24 20:45 Heparin Sodium 5,000 Unit/Ml Vial SQ 07/31/24 20:44 Q8H TANNER Miscellaneous 1 each 07/01/24 18:45 07/01/24 19:18 Vancomycin Consult Request NOTAPPLIC 07/31/24 18:44 1 each CONSULT PHARMACY TANNER Administration Sodium Chloride 10 ml 07/01/24 19:38 07/01/24 19:41 Sodium Chloride 0.9% 10ml Syr (Rad Only) IV 07/31/24 19:37 10 ml NEEDED PRN Administration Maintain IV Site Discontinued Medications Generic Name Dose Route Start Last Admin Trade Name Freq PRN Reason Stop Dose Admin Acetaminophen 1,000 mg 07/01/24 18:38 07/01/24 19:02 Acetaminophen 1,000mg/100ml Vial IV 07/01/24 18:39 1,000 mg ONCE ONE Administration Lactated Ringer's 1,000 mls @ 999 mls/hr 07/01/24 18:38 07/01/24 19:02 Lactated Ringer's 1000 Ml Bag IV 07/01/24 19:38 999 mls/hr .Q1H1M ONE Administration Vancomycin HCl 2,500 mg/ 250 mls @ 125 mls/hr 07/01/24 19:00 07/01/24 19:29 Sodium Chloride IV 07/01/24 20:59 125 mls/hr ONCE ONE Administration Iopamidol 120 ml 07/01/24 19:38 07/01/24 19:41 Iopamidol-370 (76%);100ml Bottle IV 07/01/24 19:39 120 ml ONCE ONE Administration Oxycodone HCl 5 mg 07/01/24 18:38 07/01/24 19:02 Oxycodone 5mg Immediate Release Tablet PO 07/01/24 18:39 5 mg ONCE ONE Administration Sodium Chloride 50 ml 07/01/24 19:38 07/01/24 19:40 0.9 % Sodium Chloride 50 Ml Vial IV 07/01/24 19:39 50 ml ONCE ONE Administration ORDERS Category Date Time Status CT foot RT w con Stat Cat Scan 07/01/24 18:37 Completed Basic Metabolic Panel AMLAB Lab 07/02/24 06:00 Ordered Basic Metabolic Panel AMLAB Lab 07/03/24 06:00 Ordered Basic Metabolic Panel AMLAB Lab 07/04/24 06:00 Ordered Basic Metabolic Panel AMLAB Lab 07/05/24 06:00 Ordered CBC w/Auto Diff [Complete Blood Count Auto Diff] Stat Lab 07/01/24 18:45 Completed CMP [Comprehensive Metabolic Panel] Stat Lab 07/01/24 18:45 Completed CRP [C-Reactive Protein] Stat Lab 07/01/24 18:45 Completed Complete Blood Count Auto Diff AMLAB Lab 07/02/24 06:00 Ordered Complete Blood Count Auto Diff AMLAB Lab 07/03/24 06:00 Ordered Complete Blood Count Auto Diff AMLAB Lab 07/04/24 06:00 Ordered Complete Blood Count Auto Diff AMLAB Lab 07/05/24 06:00 Ordered ESR [Erythrocyte Sedimentation Rate] Stat Lab 07/01/24 18:45 Completed HIV (1&2) Antibody Rapid Stat Lab 07/01/24 18:45 Completed Hep C Ab with Reflex to RNA Stat Lab 07/01/24 18:45 Completed Lactic Acid Stat Lab 07/01/24 18:45 Completed Procalcitonin Stat Lab 07/01/24 18:45 Completed Blood Culture Stat Micro 07/01/24 19:25 Received VBG [Venous Blood Gas] Stat RT 07/01/24 19:22 Completed Medical Decision Narrative: In summary patient is a 54-year-old female who presents to the emergency department for evaluation of right foot diabetic foot ulcer. Patient is hypertensive on arrival at 189/87 tachycardic on arrival at 109 upon arrival, but otherwise hemodynamically stable and afebrile. Physical exam is remarkable for a diabetic foot ulcer at the base of the fifth metatarsal with necrotic looking central ulcer approximately a quarter in size with surrounding erythema edema and pain. There is purulent debris expressed from the wound.. Differential diagnosis includes abscess versus necrotizing soft tissue infection versus osteomyelitis versus sepsis etc. initial workup will be conducted with CT scan of the foot, hematologic labs, blood culture. Initial interventions include crystalloid bolus vancomycin after blood cultures drawn Tylenol and oxycodone as patient has an allergy to ibuprofen. Initial workup reviewed by me slightly elevated white count normal sed rate and my informal interpretation of her plain film x-ray shows bony destruction at the proximal end of the metatarsal along with what appears to be an abscess on her CT scan prior to radiology read but no gas. Given this had interactive discussion about her findings and I recommended admission and patient understood and agreed. Given that I had interact discussion with hospital medicine about patient management and she will be admitted for further evaluation and care and possible operative intervention tomorrow I was consulted by the LIZANDRO, and we discussed the complexity of the problems being addressed. I approved the treatment and management plan for this patient's care in the Emergency Department, thus performing a substantive portion of the medical decision making. David Rosario MD Critical Care <FLORES Adler - Last Filed: 07/01/24 22:03> Critical Care Time Critical Care Time: No <David Rosario MD - Last Filed: 07/01/24 22:16> Critical Care Time Critical Care Time: Yes (ID) Attestation: On 07/01/24, the high probability of a clinically significant, sudden or life threatening deterioration of the following system(s) required my full and direct attention, intervention and personal management. The time I documented below is in addition to time spent performing reported procedures but includes the following listed in this critical care notation. Total Time Total Critical Care Time: 35
--- NOTE | 2024-07-01 18:37 | CT_ITS ---
PROCEDURE INFORMATION: Exam: CT Right Lower Extremity, Foot Exam date and time: 07/01/2024 7:40 PM Age: 54 years old Clinical indication: Edema; Location not specified; Additional info: Diabetic foot ulcer, sti TECHNIQUE: Imaging protocol: CT of the right lower extremity with intravenous contrast was performed. Exam focused on the foot. Radiation optimization: All CT scans at this facility use at least one of these dose optimization techniques: automated exposure control; mA and/or kV adjustment per patient size (includes targeted exams where dose is matched to clinical indication); or iterative reconstruction. Contrast material: ISOVUE; Contrast volume: 120 ml; Contrast route: IV; COMPARISON: CR XR FOOT WT BEARING RT 3V 04/12/2023 3:08 PM FINDINGS: Bones/joints: Lateral foot ulcer near the base of the 5th metatarsal bone. There is fluid extending down to the bone and there is bony fragmentation and irregularity at the base of the 5th metatarsal bone. with reactive sclerotic changes. These findings are consistent with acute on chronic osteomyelitis. No acute fracture. Soft tissues: Severe subcutaneous edema throughout the ankle and foot consistent with cellulitis. Associated soft tissue abscess fills the deep portion of the ulcer. The abscess measures about 12 mm diameter. IMPRESSION: 1. Lateral foot ulcer near the base of the 5th metatarsal bone. Associated soft tissue abscess fills the deep portion of the ulcer. The abscess measures about 12 mm diameter. There is fluid extending down to the bone and there is bony fragmentation and irregularity at the base of the 5th metatarsal bone. with reactive sclerotic changes. These findings are consistent with acute on chronic osteomyelitis. 2. No evidence for acute fracture. 3. Severe subcutaneous edema throughout the ankle and foot consistent with cellulitis.
[2024-07-01 19:01] LABS: Basophils # 0.1 K/mm3 (0-0.2); Basophils % 0.7 % (0.1-2.0); Eosinophils # 0.2 K/mm3 (0.0-0.4); Eosinophils % 1.9 % (0.1-12.0); Hematocrit 50.1 % (37.0-47.0); Hemoglobin 16.1 g/dL (12.2-16.2); Lymphocytes % 16.2 % (10-50); Mean Corpuscular HGB Conc 32.1 g/dL (31.8-35.4); Mean Corpuscular Volume 93.5 fl (81-99); Monocytes # 0.7 K/mm3 (0.1-1.0); Monocytes % 6.2 % (1.7-9.3); Neutrophils % 75.1 % (37.0-80.0); Platelet Count 286 K/mm3 (142-424); Red Blood Count 5.36 M/mm3 (4.20-5.40); Red Cell Distribution Width 14.5 % (11.5-17.5)
[2024-07-01] MEDS: ACETAMINOPHEN 1,000MG/100ML VIAL 1000 MG IV (19:02)
[2024-07-01] MEDS: OXYCODONE 5MG IMMEDIATE RELEASE TABLET 5 MG PO (19:02)
[2024-07-01] MEDS: LACTATED RINGERS 1000ML 1,000 ML 999 ML IV (19:02)
[2024-07-01 19:12] LABS: Albumin Level 3.8 g/dl (3.5-5.0); Chloride 96 mmol/L (98-107); Potassium 4.1 mmoL/L (3.5-5.1); Sodium 133 mmol/L (136-145)
[2024-07-01 19:14] LABS: Alanine Aminotransferase 14 U/L (12-78); Anion Gap 7.1 mEq/L (5-15); Aspartate Amino Transferase 24 U/L (14-36); Blood Urea Nitrogen 10 mg/dl (7-17); Carbon Dioxide 34 mmol/L (22.0-30.0); Creatinine Clearance Estimated 185 mL/min (50-200); Estimated Glomerular Filt Rate 104 ml/min (>60); GFR (African American) 126 ML/MIN (>60)
[2024-07-01 19:15] LABS: Albumin/Globulin Ratio 0.9 (1.1-1.8); Alkaline Phosphatase 129 U/L (38-126); Bilirubin,Total 0.7 mg/dl (0.2-1.3); Calcium 9.3 mg/dl (8.4-10.2); Globulin 4.4 g/dL (1.3-3.2); Glucose 116 mg/dl (74-100); Lactic Acid 0.7 mmol/L (0.7-2.1); Total Protein,Serum 8.2 g/dl (6.3-8.2)
[2024-07-01] MEDS: VANCOMYCIN CONSULT REQUEST 1 EACH NOTAPPLIC (19:18)
--- NOTE | 2024-07-01 19:19 | PC.NURSE ---
Confirmed vanc dosing with abhishek at [facility]
[2024-07-01 19:27] LABS: VBG Base Excess -0.9 mmol/L (-2.4-2.3); VBG Oxygen Saturation 69.2 % (50-70); VBG PCO2 40.3 mmol/L (35-51); VBG PH 7.39 mmol/L (7.31-7.41); VBG PO2 28.6 mmol/L (28-40); VBG Total CO2 25.3 mmol/L (23-27)
[2024-07-01] MEDS: VANCOMYCIN HCL 2,500 MG in 0.9 % SODIUM CHLORIDE 250 ML 125 MG IV (19:29)
[2024-07-01 19:31] LABS: Lactate Venous 4.6 mmol/L (0.4-2.0)
[2024-07-01 19:34] LABS: Erythrocyte Sedimentation Rate 16 mm/hr (0-30)
[2024-07-01] MEDS: 0.9 % SODIUM CHLORIDE 50 ML VIAL IV (19:40)
[2024-07-01] MEDS: SODIUM CHLORIDE 0.9% 10ML SYR (RAD ONLY) 10 ML IV (19:41)
[2024-07-01] MEDS: IOPAMIDOL-370 (76%);100ML BOTTLE 120 ML IV (19:41)
[2024-07-01 19:54] LABS: C-Reactive Protein 53.3 mg/L (0-4); Procalcitonin 0.046 ng/mL (0.0-2.0)
--- NOTE | 2024-07-01 20:46 | PC.NURSE ---
Report called to [facility] on med/surg
[2024-07-01 21:22] LABS: HIV (1&2) Antibody Rapid NONREACTIVE (NONREACTIVE)
--- NOTE | 2024-07-01 21:30 | PC.NURSE ---
Med/surg down here to get patient
--- NOTE | 2024-07-01 21:33 | PC.NURSE ---
Patient arrived to floor via stretcher from Ed at 21:32.
--- NOTE | 2024-07-01 21:37 | XR_ITS ---
PROCEDURE INFORMATION: Exam: XR Right Foot Exam date and time: 07/01/2024 9:46 PM Age: 54 years old Clinical indication: Pain; Edema and swelling or effusion of joint; No, it is generalized; Foot; Right; Additional info: 5th met om, dfu TECHNIQUE: Imaging protocol: Radiologic exam of the right foot. Views: 3 or more views. COMPARISON: CT FOOT RT W CON 07/01/2024 7:40 PM FINDINGS: Bones/joints: There is an acute avulsion fracture at the base of the 5th metatarsal. There may be some adjacent periosteal reaction. Remainder of the osseous structures appear in anatomic alignment. Soft tissues: Soft tissue swelling. IMPRESSION: 1. Fifth metatarsal fracture at base. Probably subacute. 2. Soft tissue swelling.
--- NOTE | 2024-07-01 22:01 | P.HP_ITS ---
History of Present Illness *Admission Date: 07/01/24 *Reason for visit:: foot pain *History of present illness: Patient is a 54-year-old female with past medical history of diabetes mellitus, diabetic neuropathy who presents to the hospital due to right foot pain as well as diabetic foot ulcer. According to patient she follows up with clinical faculty at . Patient reports pus discharge from ulcer as well as worsening pain 10/10 intensity constant, sharp. Patient otherwise denied chest pain shortness of breath nausea vomiting diarrhea constipation dysuria fevers and chills. [facility] Disclaimer: The information contained in this section may have been updated after the patient was seen, as this information can be updated by other users. 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 Type 2 diabetes mellitus Diabetic foot Surgical History Total knee replacement status bilateral Family History Other Family history of COPD (chronic obstructive pulmonary disease) Family history of cancer Family history of diabetes mellitus type II Family history of hypertension Family history of myocardial infarction Social History (Updated 07/01/24 @ 22:49 by Hodan Jovel RN) Smoking Status: Current some day smoker tobacco type: cigarettes packs per day: 1 second hand exposure: Yes alcohol intake: never substance use type: denies use current occupational status: other Travel in the last 8 weeks: None household members: friend(s) housing: house lives independently: Yes marital status: single education level: high school current occupation: [employer] caffeine: Yes special heather needs: No agree to transfusion: No do you feel safe at home: Yes victim of physical abuse: No victim of emotional abuse: No victim of sexual abuse: No would you like helpful sources: No Other Medical History Have you received the Flu Vaccine for this season: No Have you received the Pneumonia Vaccine: No Review of Systems Review of Systems Review of systems (narrative): as per HPI Meds Home Medications and Allergies Home Medications ?Medication ?Instructions ?Recorded ?Confirmed ?Type flash glucose sensor 05/04/22 06/17/24 History diclofenac sodium 1 % topical gel 2 g topical QID joint pain 07/11/22 06/17/24 History flash glucose scanning reader 08/14/22 06/17/24 History (FreeStyle Joelle 14 Day Miracle) carvedilol 25 mg tablet 25 mg PO BID High blood pressure 02/15/23 07/01/24 Rx 90 days #180 tabs duloxetine 60 mg capsule,delayed 60 mg PO DAILY MOOD #90 caps 02/15/23 07/01/24 Rx release escitalopram oxalate 20 mg tablet 20 mg PO DAILY Depression #90 tabs 02/15/23 07/01/24 Rx fenofibrate 54 mg tablet 54 mg PO DAILY Cholesterol #90 tabs 02/15/23 07/01/24 Rx furosemide 80 mg tablet (Lasix) 80 mg PO BID fluid #180 tabs 02/15/23 07/01/24 Rx insulin glargine 100 unit/mL (3 10 unit (0.1 mL) SQ HS Diabetes 02/15/23 07/01/24 Rx mL) subcutaneous pen #15 mL isosorbide mononitrate 30 mg 30 mg PO DAILY Hypertension #90 02/15/23 07/01/24 Rx tablet,extended release 24 hr tabs levothyroxine 200 mcg tablet 200 mcg PO DAILY THYROID #90 tabs 02/15/23 06/17/24 Rx lisinopril 2.5 mg tablet 2.5 mg PO DAILY Hypertension #90 02/15/23 07/01/24 Rx tabs methocarbamol 1,000 mg tablet 1,000 mg PO TID muscle spasms #90 04/16/23 07/01/24 Rx tabs semaglutide 1 mg/dose (4 mg/3 mL) 1 mg SQ WEEKLY Diabetes 04/16/23 07/01/24 History subcutaneous pen injector pantoprazole 40 mg tablet,delayed See Rx Instructions .Route 04/24/23 07/01/24 Rx release .COMPLEX #90 tabs ropinirole 3 mg tablet See Rx Instructions .Route 04/24/23 07/01/24 Rx .COMPLEX #90 tabs insulin NPH-regular 70-30 U-100 See Rx Instructions .Route 05/24/23 07/01/24 Rx insulin 100 unit/mL subcutaneous .COMPLEX #15 mL pen (Humulin 70/30 U-100 Tonya) ondansetron 4 mg disintegrating See Rx Instructions .Route 05/31/23 07/01/24 Rx tablet .COMPLEX #30 tabs flash glucose sensor (FreeStyle #1 ea 06/15/23 06/17/24 Rx Joelle 14 Day Sensor kit) trazodone 150 mg tablet See Rx Instructions .Route 07/12/23 07/01/24 Rx .COMPLEX #30 tabs mupirocin 2 % topical ointment 1 applic topical BID infection 10 01/23/24 06/17/24 Rx days #15 grams gabapentin 400 mg capsule 400 mg PO TID NEUROPATHY 07/01/24 07/01/24 History New Prescriptions to Start Prescriptions: Allergies Allergy/AdvReac Type Severity Reaction Status Date / Time ceftriaxone [From ROCEPHIN] Allergy Unknown Verified 01/23/24 14:56 droperidol [From INAPSINE] Allergy Unknown Verified 01/23/24 14:56 ibuprofen [IBUPROFEN] Allergy Unknown Verified 01/23/24 14:56 moxifloxacin [From AVELOX] Allergy Unknown Verified 01/23/24 14:56 Exam Data for Last 24 hours Vital signs and Labs for Last 24 Hours: Temp Pulse Resp BP Pulse Ox O2 Del Method 97.9 F 92 H 16 168/92 H 96 Room Air 07/01/24 20:47 07/01/24 20:47 07/01/24 20:47 07/01/24 20:47 07/01/24 20:31 07/01/24 20:47 Laboratory Results - last 24 hr 07/01/24 18:45: WBC 12.0 H, RBC 5.36, Hgb 16.1, Hct 50.1 H, MCV 93.5, MCH 30.0, MCHC 32.1, RDW 14.5, Plt Count 286, MPV 7.0 L, Neut % (Auto) 75.1, Lymph % (Auto) 16.2, Ripley % (Auto) 6.2, Eos % (Auto) 1.9, Baso % (Auto) 0.7, Neut # (Aut o) 9.0 H, Lymph # (Auto) 2.0, Ripley # (Auto) 0.7, Eos # (Auto) 0.2, Baso # (Auto) 0.1, ESR 16, Sodium 133 L, Potassium 4.1, Chloride 96 L, Carbon Dioxide 34 H, Anion Gap 7.1, BUN 10, Creatinine 0.60, Estimated Creat Clear 185, Estimated GFR 104, Est GFR ( Amer) 126, Glucose 116 H, Lactate 0.7, Calcium 9.3, Total Bilirubin 0.7, AST 24, ALT 14, Alkaline Phosphatase 129 H, C-Reactive Protein 53.3 H, Total Protein 8.2, Albumin 3.8, Globulin 4.4 H, Albumin/Globulin Ratio 0.9 L, Procalcitonin 0.046, HIV 1&2 Antibody Rapid Nonreactive 07/01/24 19:22: VBG pH 7.39, VBG pCO2 40.3, VBG pO2 28.6, VBG HCO3 24.0, VBG Total CO2 25.3, VBG O2 Saturation 69.2, VBG Base Excess -0.9, VBG Lactic Acid 4.6 H I & O for Last 24 hours: Intake & Output 06/28/24 06/29/24 06/30/24 07/01/24 23:59 23:59 23:59 23:59 Weight 110.677 kg Constitutional Constitutional: no acute distress *Routine HEENT Exam Head: Present normocephalic Eye: Present EOMI and PERRL ENT: Present mucous membranes moist *Routine Neck Exam Neck: Present supple; Absent lymphadenopathy *Routine Respiratory Exam Respiratory: Present CTA bilaterally *Routine Cardiovascular Exam Cardiovascular: Present RRR *Routine Abdominal Exam Abdominal: Present soft and normoactive bowel sounds; Absent tenderness *Routine Rectal Exam Rectal:: deferred *Routine Genitalia Exam Genitalia:: deferred *Routine Extremities Exam Extremities: Absent cyanosis, clubbing or edema Comments: R foot has ulcer on plantar surface, tender to touch, pus coming out *Routine Skin Exam Skin: Present warm; Absent rash *Routine Neurological Exam Neurological: Present alert and oriented X3 Assessment and Plan *Assessment and plan (1) Osteomyelitis: Status: Acute Qualifiers: Laterality: right Osteomyelitis location: foot Osteomyelitis type: unspecified type Qualified Code(s): M86.9 - Osteomyelitis, unspecified Category: Medical Code(s): M86.9 - Osteomyelitis, unspecified (2) Diabetic foot ulcer: Status: Acute Category: Medical Code(s): E11.621 - Type 2 diabetes mellitus with foot ulcer; L97.509 - Non-pressure chronic ulcer of other part of unspecified foot with unspecified severity (3) Diabetes: Status: Chronic Qualifiers: Diabetes mellitus type: type 2 Diabetes mellitus long term care administrator insulin use: with long term care administrator use Diabetes mellitus complication status: with other specified complication Qualified Code(s): E11.69 - Type 2 diabetes mellitus with other specified complication Category: Medical Code(s): E11.9 - Type 2 diabetes mellitus without complications (4) Hypertension: Status: Chronic Qualifiers: Hypertension type: essential hypertension Qualified Code(s): I10 - Essential (primary) hypertension Category: Medical Code(s): I10 - Essential (primary) hypertension (5) Hypothyroidism: Status: Chronic Qualifiers: Hypothyroidism type: acquired Qualified Code(s): E03.9 - Hypothyroidism, unspecified Category: Medical Code(s): E03.9 - Hypothyroidism, unspecified (6) Depression: Status: Chronic Qualifiers: Depression Type: unspecified Qualified Code(s): F32.A - Depression, unspecified Category: Medical Code(s): F32.9 - Major depressive disorder, single episode, unspecified (7) Anxiety: Status: Chronic Category: Medical Code(s): F41.9 - Anxiety disorder, unspecified (8) Fibromyalgia: Status: Chronic Category: Medical Code(s): M79.7 - Fibromyalgia Plan Patient is a 54-year-old female with past medical history of diabetes mellitus, diabetic neuropathy who presents to the hospital due to right foot pain as well as diabetic foot ulcer. According to patient she follows up with clinical faculty at . Patient reports pus discharge from ulcer as well as worsening pain 10/10 intensity constant, sharp. Patient otherwise denied chest pain shortness of breath nausea vomiting diarrhea constipation dysuria fevers and chills. Assessment and plan R Diabetic foot ulcer R Diabetic foot infection Acute on chronic osteomyelitis of R foot N.p.o. after midnight Consult podiatry Restart IV Zosyn, vancomycin Check ESR, CRP CT foot reviewed, history of acute on chronic osteomyelitis Pain control Patient may need long-term IV antibiotics at discharge Diabetes mellitus Impression sinus rhythm Chronic medical conditions Hypertension Hypothyroidism Depression Hyperlipidemia -Resume home medications including coreg, lisinopril, ropinirol DVT PPx - on heparin
[2024-07-01] MEDS: HEPARIN SODIUM 5,000 UNIT/ML VIAL 5000 UNIT SQ (23:02)
[2024-07-01] MEDS: HYDROMORPHONE 2MG/ML SYRINGE 1 MG IV (23:03)
[2024-07-01 23:30] LABS: Reflex Lactic Add Lactic Reflex
[2024-07-01 23:52] LABS: POC Glucose,Bedside 106 (70-110)
[2024-07-01 23:56] LABS: Lactic Acid Follow Up (RFLX 1) 0.5 mmol/L (0.7-2.1)
[2024-07-02] VITALS (23 sets, daily range): BP systolic 103–181; BP diastolic 47–78; PULSE 67–92; RESP 11–22; TEMP 36.4–37.1; O2SAT 3–99; BMI 39.1
[2024-07-02 00:02] LABS: C-Reactive Protein 52.2 mg/L (0-4)
[2024-07-02] MEDS: VANCOMYCIN CONSULT REQUEST 1 EACH NOTAPPLIC (00:05)
[2024-07-02] MEDS: PIPERACILLIN/TAZO 3.375 GM in 0.9 % SODIUM CHLORIDE 50 ML IV ×5 (00:40→23:43)
[2024-07-02 00:43] LABS: Erythrocyte Sedimentation Rate 16 mm/hr (0-30)
[2024-07-02] MEDS: HYDROMORPHONE 2MG/ML SYRINGE 1 MG IV ×6 (01:30→23:43)
--- NOTE | 2024-07-02 06:30 | US_ITS ---
FINAL REPORT CLINICAL HISTORY: DFU, access healing potential for abscess surgery, HTN, HLD, Smoker, DM COMPARISON: None FINDINGS: ANKLE-BRACHIAL PRESSURE INDICES Pressure indices are as follows: RIGHT LOWER EXTREMITY: Ankle-brachial pressure index: Comments: Mildly depressed LEFT LOWER EXTREMITY: Ankle-brachial pressure index: 1.2 Comments: Normal CONCLUSION: No evidence of significant obstructive peripheral vascular disease of the left lower extremity Mildly depressed ankle-brachial pressure index in the right lower extremity, consistent with mild peripheral vascular disease. Reviewed, Interpreted and Dictated by Agustin Frazier MD Transcribed by Bebe Red Authenticated and [facility]
--- NOTE | 2024-07-02 06:37 | EXP.POD.CONS ---
History of Present Illness *Admission Date: 07/01/24 *History of present illness: Patient is a 54-year-old female with past medical history of diabetes mellitus, diabetic neuropathy who presents to the hospital due to right foot pain as well as diabetic foot ulcer. According to patient she follows up with [facility] at . Patient reports pus discharge from ulcer as well as worsening pain 10/10 intensity constant, sharp. Patient otherwise denied chest pain shortness of breath nausea vomiting diarrhea constipation dysuria fevers and chills. 07/02/24: Podiatry consult Patient is a 54-year-old female that is a current podiatry patient that I recently saw in the clinic in December for a loose toenail. Patient states the wound started couple weeks ago with a blister. Patient was seen in [facility] ER at that time was given antibiotics, x-ray she stated at that time did not show bone infection. Patient was then seen last night in our [facility] ER with foot pain drainage and worsening ulceration to the right foot. X-rays have now shown acute on chronic osteomyelitis to the right foot. Patient has been kept n.p.o. after midnight. Plan for patient to be added to surgery schedule today. Verbal as well as written consent has been obtained by the patient for incision and drainage right foot, irrigation and debridement of nonviable soft tissue and bone, partial fifth metatarsal amputation (possible wound VAC application) for bone abscess. Wound culture has been obtained from the site this morning. Patient reports intense pain when compressing around the right foot ulceration and directly above the ulceration is a callus with a small 0 x 3 x 0.3 cm opening. Denies any fever, nausea or vomiting. Patient was receiving IV pain medication at the time of my rounding. [facility] Disclaimer: The information contained in this section may have been updated after the patient was seen, as this information can be updated by other users. 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 Type 2 diabetes mellitus Diabetic foot Surgical History Total knee replacement status bilateral Family History Other Family history of COPD (chronic obstructive pulmonary disease) Family history of cancer Family history of diabetes mellitus type II Family history of hypertension Family history of myocardial infarction Social History (Updated 07/01/24 @ 22:49 by Hodan Jovel RN) Smoking Status: Current some day smoker tobacco type: cigarettes packs per day: 1 second hand exposure: Yes alcohol intake: never substance use type: denies use current occupational status: other Travel in the last 8 weeks: None household members: friend(s) housing: house lives independently: Yes marital status: single education level: high school current occupation: [employer] caffeine: Yes special heather needs: No agree to transfusion: No do you feel safe at home: Yes victim of physical abuse: No victim of emotional abuse: No victim of sexual abuse: No would you like helpful sources: No Meds Home Medications and Allergies Home Medications ?Medication ?Instructions ?Recorded ?Confirmed ?Type flash glucose sensor 05/04/22 06/17/24 History flash glucose scanning reader 08/14/22 06/17/24 History ([employer] 14 Day [place]) carvedilol 25 mg tablet 25 mg PO BID High blood pressure 02/15/23 07/01/24 Rx 90 days #180 tabs duloxetine 60 mg capsule,delayed 60 mg PO DAILY MOOD #90 caps 02/15/23 07/01/24 Rx release escitalopram oxalate 20 mg tablet 20 mg PO DAILY Depression #90 tabs 02/15/23 07/01/24 Rx fenofibrate 54 mg tablet 54 mg PO DAILY Cholesterol #90 tabs 02/15/23 07/01/24 Rx insulin glargine 100 unit/mL (3 10 unit (0.1 mL) SQ HS Diabetes 02/15/23 07/01/24 Rx mL) subcutaneous pen #15 mL lisinopril 2.5 mg tablet 2.5 mg PO DAILY Hypertension #90 02/15/23 07/01/24 Rx tabs methocarbamol 1,000 mg tablet 1,000 mg PO TID muscle spasms #90 04/16/23 07/01/24 Rx tabs semaglutide 1 mg/dose (4 mg/3 mL) 2 mg SQ WEEKLY Diabetes 04/16/23 07/02/24 History subcutaneous pen injector flash glucose sensor (Syniverseyle #1 ea 06/15/23 06/17/24 Rx Joelle 14 Day Sensor kit) gabapentin 400 mg capsule 400 mg PO TID NEUROPATHY 07/01/24 07/01/24 History furosemide 40 mg tablet 40 mg PO BID 07/02/24 07/02/24 History hydroxyzine pamoate 25 mg capsule 25 mg PO TID PRN Panic Disorder 07/02/24 07/02/24 History insulin NPH-regular 70-30 U-100 63 unit SQ BID 07/02/24 07/02/24 History insulin 100 unit/mL subcutaneous pen (Humulin 70/30 U-100 KwikPen) isosorbide dinitrate 30 mg tablet 30 mg PO BID 07/02/24 07/02/24 History methimazole 5 mg tablet 2.5 mg PO DAILY 07/02/24 07/02/24 History pantoprazole 40 mg tablet,delayed 40 mg PO DAILY 07/02/24 07/02/24 History release ropinirole 3 mg tablet 3 mg PO HS 07/02/24 07/02/24 History tizanidine 4 mg tablet 4 mg PO BID PRN Myalgia 07/02/24 07/02/24 History trazodone 150 mg tablet 150 mg PO HS 07/02/24 07/02/24 History New Prescriptions to Start Prescriptions: Allergies Allergy/AdvReac Type Severity Reaction Status Date / Time ceftriaxone [From ROCEPHIN] Allergy Unknown Verified 01/23/24 14:56 droperidol [From INAPSINE] Allergy Unknown Verified 01/23/24 14:56 ibuprofen [IBUPROFEN] Allergy Unknown Verified 01/23/24 14:56 moxifloxacin [From AVELOX] Allergy Unknown Verified 01/23/24 14:56 Exam (Inpt) Vital signs and Labs for Last 24 Hours: Temp Pulse Resp BP Pulse Ox O2 Del Method O2 Flow Rate 97.7 F 70 18 137/68 96 Nasal Cannula 3 07/02/24 04:00 07/02/24 04:00 07/02/24 04:00 07/02/24 04:00 07/02/24 04:00 07/02/24 04:00 07/02/24 04:00 FiO2 32 07/02/24 02:12 Laboratory Results - last 24 hr 07/01/24 18:45: WBC 12.0 H, RBC 5.36, Hgb 16.1, Hct 50.1 H, MCV 93.5, MCH 30.0, MCHC 32.1, RDW 14.5, Plt Count 286, MPV 7.0 L, Neut % (Auto) 75.1, Lymph % (Auto) 16.2, [place] % (Auto) 6.2, Eos % (Auto) 1.9, Baso % (Auto) 0.7, Neut # (Auto) 9.0 H, Lymph # (Auto) 2.0, [place] # (Auto) 0.7, Eos # (Auto) 0.2, Baso # (Auto) 0.1, ESR 16 07/01/24 18:45: ESR 16, Sodium 133 L, Potassium 4.1, Chloride 96 L, Carbon Dioxide 34 H, Anion Gap 7.1, BUN 10, Creatinine 0.60, Estimated Creat Clear 185, Estimated GFR 104, Est GFR ( Amer) 126, Glucose 116 H, Lactate 0.7, Calcium 9.3, Total Bilirubin 0.7, AST 24, ALT 14, Alkaline Phosphatase 129 H, C-Reactive Protein 53.3 H 07/01/24 18:45: C-Reactive Protein 52.2 H, Total Protein 8.2, Albumin 3.8, Globulin 4.4 H, Albumin/Globulin Ratio 0.9 L, Procalcitonin 0.046, HIV 1&2 Antibody Rapid Nonreactive 07/01/24 19:22: VBG pH 7.39, VBG pCO2 40.3, VBG pO2 28.6, VBG HCO3 24.0, VBG Total CO2 25.3, VBG O2 Saturation 69.2, VBG Base Excess -0.9, VBG Lactic Acid 4.6 H 07/01/24 23:40: Lactate 0.5 L 07/01/24 23:42: POC Glucose 106 I & O for Labs for Last 24 Hours: Intake & Output 06/29/24 06/30/24 07/01/24 07/02/24 23:59 23:59 23:59 23:59 Intake Total 1361 / 1361 Output Total 0 / 0 320 / 320 Balance 0 / 0 1041 / 1041 Weight 243 lb 4 oz Constitutional: Present mild distress, obese and cooperative Head: Present normocephalic Eye: Present as per HPI Neck: Present trachea midline Respiratory: Present normal respiratory effort and able to speak in complete sentences Cardiac: Present posterior tibial pulses present and pedal pulses present Comment:: ABIs were obtained as I was entering the room this morning for rounding. Right total AUBRIE 0.93, left total AUBRIE 1.18. Comments:: Deferred Rectal (female): Present deferred (female): Present deferred Extremities: Present normal capillary refill and edema (1+ right foot and lower extremity edema); Absent calf tenderness Comment:: Cellulitis noted to the right foot extending up lower leg. Skin: Present erythema, warm and wounds (right lateral foot DFU, WCx obtained, cellulitis to foot/lower leg. Callus to right sub 5th with small opening 0.3x0.2 x0.1 cm ) Comment:: R lateral foot DFU central wound 0.5x0.5x (Probes 2.2 cm to metatarsal bone). The entire perimeter of the ulcer measures 2.3cm x 1.5 cm. Pustular drainage expressed and was cultured. Foot is very tender and painful to touch. Wound lightly debrided with #15 blade sharply but superficially due to pain, Betadine soaked 4 x 4, dry 4 x 4, Kerlix and Jose wrap was applied to site. Neuro: Present Motor Function Intact, Tingling, oriented x 3 and moves all extremities Comment:: Decreased sensation, dullness instead of sharp was noted this morning. Patient with history of neuropathy Ankle: right: swelling, right: tenderness, right: wound (Right lateral foot DFU, right sub-fifth callus ulceration) and right: decreased ROM (Related to pain on the right foot DFU) Feet/Toes: right: swelling (right foot cellulitis, DFU), right: tenderness (R foot DFU lateral foot ) and right: decreased ROM and bilateral: hammer toe and bilateral: nail abnormalities (thick, discolored) Inspection: Present nail disorder, calluses/corns (right sub 5th 0.5x0.5x0.1cm small opening in callus), skin break, infection and ulceration (right lateral foot DFU ) Pulses: L dorsalis pedis pulse: normal, R dorsalis pedis pulse: normal, L posterior tibial pulse: diminished (present but diminished secondary to edema ) and R posterior tibial pulse: diminished (present but diminished secondary to edema) CFT: normal: CFT Monofilament exam: R 1st metatarsals: decreased, R 3rd metatarsals: decreased, R 5th metatarsals: decreased, R great toe: decreased, R 3rd toe: decreased and R 5th toe: decreased Pinprick: R great toe: abnormal Ankle reflex: Right: abnormal Results Labs 07/01/24 18:45 07/02/24 06:20 Labs: Abnormal lab results 07/01/24 07/01/24 07/01/24 Range/Units 18:45 18:45 19:22 WBC 12.0 H (4.8-10.8) K/mm3 Hct 50.1 H (37.0-47.0) % MPV 7.0 L (7.4-10.4) fl Neut # (Auto) 9.0 H (1.8-7.8) K/mm3 VBG Lactic Acid 4.6 H (0.4-2.0) mmol/L Sodium 133 L (136-145) mmol/L Chloride 96 L (98-107) mmol/L Carbon Dioxide 34 H (22.0-30.0) mmol/L Glucose 116 H (74-100) mg/dl Lactate (0.7-2.1) mmol/L Alkaline Phosphatase 129 H (38-126) U/L C-Reactive Protein 53.3 H 52.2 H (0-4) mg/L Globulin 4.4 H (1.3-3.2) g/dL Albumin/Globulin Ratio 0.9 L (1.1-1.8) 07/01/24 Range/Units 23:40 WBC (4.8-10.8) K/mm3 Hct (37.0-47.0) % MPV (7.4-10.4) fl Neut # (Auto) (1.8-7.8) K/mm3 VBG Lactic Acid (0.4-2.0) mmol/L Sodium (136-145) mmol/L Chloride (98-107) mmol/L Carbon Dioxide (22.0-30.0) mmol/L Glucose (74-100) mg/dl Lactate 0.5 L (0.7-2.1) mmol/L Alkaline Phosphatase (38-126) U/L C-Reactive Protein (0-4) mg/L Globulin (1.3-3.2) g/dL Albumin/Globulin Ratio (1.1-1.8) H & H 07/01/24 Range/Units 18:45 Hgb 16.1 (12.2-16.2) g/dL Hct 50.1 H (37.0-47.0) % All other labs normal. Assessment and Plan *Assessment and plan (1) Osteomyelitis: Status: Acute Qualifiers: Laterality: right Osteomyelitis location: foot Osteomyelitis type: unspecified type Qualified Code(s): M86.9 - Osteomyelitis, unspecified Category: Medical Code(s): M86.9 - Osteomyelitis, unspecified (2) Diabetic foot ulcer: Status: Acute Qualifiers: Diabetes mellitus type: type 2 Diabetic foot ulcer location: other Laterality: right Non-pressure ulcer stage: with necrosis of bone Qualified Code(s): E11.621 - Type 2 diabetes mellitus with foot ulcer; L97.514 - Non-pressure chronic ulcer of other part of right foot with necrosis of bone Category: Medical Code(s): E11.621 - Type 2 diabetes mellitus with foot ulcer; L97.509 - Non-pressure chronic ulcer of other part of unspecified foot with unspecified severity (3) Diabetes: Status: Chronic Qualifiers: Diabetes mellitus complication status: with other specified complication 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 Diabetes mellitus type: type 2 Qualified Code(s): E11.69 - Type 2 diabetes mellitus with other specified complication Category: Medical Code(s): E11.9 - Type 2 diabetes mellitus without complications (4) Hypertension: Status: Chronic Qualifiers: Hypertension type: essential hypertension Qualified Code(s): I10 - Essential (primary) hypertension Category: Medical Code(s): I10 - Essential (primary) hypertension (5) Hypothyroidism: Status: Chronic Qualifiers: Hypothyroidism type: acquired Qualified Code(s): E03.9 - Hypothyroidism, unspecified Category: Medical Code(s): E03.9 - Hypothyroidism, unspecified (6) Depression: Status: Chronic Qualifiers: Depression Type: unspecified Qualified Code(s): F32.A - Depression, unspecified Category: Medical Code(s): F32.9 - Major depressive disorder, single episode, unspecified (7) Anxiety: Status: Chronic Category: Medical Code(s): F41.9 - Anxiety disorder, unspecified (8) Fibromyalgia: Status: Chronic Category: Medical Code(s): M79.7 - Fibromyalgia (9) Pre-ulcerative calluses: Status: Acute Category: Medical Code(s): L84 - Corns and callosities (10) Cellulitis of right foot: Status: Acute Category: Medical Code(s): L03.115 - Cellulitis of right lower limb (11) Decreased pedal pulses: Status: Acute Category: Medical Code(s): R09.89 - Other specified symptoms and signs involving the circulatory and respiratory systems (12) Soft tissue infection of foot: Status: Acute Category: Medical Code(s): L08.9 - Local infection of the skin and subcutaneous tissue, unspecified (13) Neuropathy: Status: Chronic Category: Medical Code(s): G62.9 - Polyneuropathy, unspecified (14) Onychoincurvatum: Status: Acute Category: Medical Code(s): L60.8 - Other nail disorders (15) Onychodystrophy: Status: Acute Category: Medical Code(s): L60.3 - Nail dystrophy (16) Keratosis: Status: Acute Category: Medical Code(s): L57.0 - Actinic keratosis (17) Diabetic foot ulcer: Status: Acute Qualifiers: Diabetes mellitus type: type 2 Diabetic foot ulcer location: heel Laterality: right Non-pressure ulcer stage: with other severity Qualified Code(s): E11.621 - Type 2 diabetes mellitus with foot ulcer; L97.418 - Non-pressure chronic ulcer of right heel and midfoot with other specified severity Category: Medical Code(s): E11.621 - Type 2 diabetes mellitus with foot ulcer; L97.509 - Non-pressure chronic ulcer of other part of unspecified foot with unspecified severity Plan Patient is a 54-year-old female with past medical history of diabetes mellitus, diabetic neuropathy who presents to the hospital due to right foot pain as well as diabetic foot ulcer. According to patient she follows up with [employer] at . Patient reports pus discharge from ulcer as well as worsening pain 10/10 intensity constant, sharp. Patient otherwise denied chest pain shortness of breath nausea vomiting diarrhea constipation dysuria fevers and chills. 07/02/24: Podiatry consult Patient is a 54-year-old female that is a current podiatry patient that I recently saw in the clinic in December for a loose toenail. Patient states the wound started couple weeks ago with a blister. Patient was seen in [facility] ER at that time was given antibiotics, x-ray she stated at that time did not show bone infection. Patient was then seen last night in our [facility] ER with foot pain drainage and worsening ulceration to the right foot. X-rays have now shown acute on chronic osteomyelitis to the right foot. Patient has been kept n.p.o. after midnight. Plan for patient to be added to surgery schedule today. Verbal as well as written consent has been obtained by the patient for incision and drainage right foot, irrigation and debridement of nonviable soft tissue and bone, partial fifth metatarsal amputation (possible wound VAC application) for bone abscess. Wound culture has been obtained from the site this morning. Patient reports intense pain when compressing around the right foot ulceration and directly above the ulceration is a callus with a small 0 x 3 x 0.3 cm opening. This more than likely this may have been the start of the abscess. Patient denies any fever, nausea or vomiting. Patient was receiving IV pain medication at the time of my rounding. Assessment and plan R Diabetic foot ulcer R Diabetic foot infection Acute on chronic osteomyelitis of R foot Remain in NPO status until surgery today Podiatry consulted and will take patient to surgery today, site marked, consent obtained: For right foot incision and drainage, irrigation and debridement of nonviable soft tissue and bone, partial fifth metatarsal amputation (possible wound VAC application) wound abscess. Patient agrees to having surgery with amputation if needed, all patient's questions were answered at bedside. Continue IV Zosyn, vancomycin per hospitalist Reviewed labs: Elevated WBC at 12.0 ESR 16, glucose 112, last recorded A1c 05/22/23 was 10.7%, patient reports this is less before she was at 14%. CRP elevated 48.6 CT foot reviewed, history of acute on chronic osteomyelitis Pain control per hospitalist Patient may need long-term IV antibiotics at discharge based on wound culture fingings. Right foot wound culture obtained, site lightly debrided subcutaneous only due to increased pain, Betadine dressing applied to right foot. See skin section for measurements Podiatry will continue to follow patient DVT PPx - on heparin
[2024-07-02 07:00] LABS: Chloride 99 mmol/L (98-107); Potassium 4.8 mmoL/L (3.5-5.1); Sodium 135 mmol/L (136-145)
[2024-07-02 07:03] LABS: Anion Gap 2.8 mEq/L (5-15); Blood Urea Nitrogen 10 mg/dl (7-17); Carbon Dioxide 38 mmol/L (22.0-30.0); Creatinine Clearance Estimated 158 mL/min (50-200); Estimated Glomerular Filt Rate 87 ml/min (>60); GFR (African American) 105 ML/MIN (>60); Glucose 112 mg/dl (74-100)
[2024-07-02 07:09] LABS: C-Reactive Protein 48.6 mg/L (0-4)
--- NOTE | 2024-07-02 07:43 | P.CONPHA_ITS ---
Pharmacy Consult Date: 07/02/24 Time: 07:43 Referring provider: DR. TUCKER Reason for Consult:: VANCOMYCIN DOSING Allergies Allergy/AdvReac Type Severity Reaction Status Date / Time ceftriaxone [From ROCEPHIN] Allergy Unknown Verified 01/23/24 14:56 droperidol [From INAPSINE] Allergy Unknown Verified 01/23/24 14:56 ibuprofen [IBUPROFEN] Allergy Unknown Verified 01/23/24 14:56 moxifloxacin [From AVELOX] Allergy Unknown Verified 01/23/24 14:56 Home Medications ?Medication ?Instructions ?Recorded ?Confirmed ?Type flash glucose sensor 05/04/22 06/17/24 History diclofenac sodium 1 % topical gel 2 g topical QID joint pain 07/11/22 06/17/24 History flash glucose scanning reader 08/14/22 06/17/24 History ([employer] 14 Day [place]) carvedilol 25 mg tablet 25 mg PO BID High blood pressure 02/15/23 07/01/24 Rx 90 days #180 tabs duloxetine 60 mg capsule,delayed 60 mg PO DAILY MOOD #90 caps 02/15/23 07/01/24 Rx release escitalopram oxalate 20 mg tablet 20 mg PO DAILY Depression #90 tabs 02/15/23 07/01/24 Rx fenofibrate 54 mg tablet 54 mg PO DAILY Cholesterol #90 tabs 02/15/23 07/01/24 Rx furosemide 80 mg tablet (Lasix) 80 mg PO BID fluid #180 tabs 02/15/23 07/01/24 Rx insulin glargine 100 unit/mL (3 10 unit (0.1 mL) SQ HS Diabetes 02/15/23 07/01/24 Rx mL) subcutaneous pen #15 mL isosorbide mononitrate 30 mg 30 mg PO DAILY Hypertension #90 02/15/23 07/01/24 Rx tablet,extended release 24 hr tabs levothyroxine 200 mcg tablet 200 mcg PO DAILY THYROID #90 tabs 02/15/23 06/17/24 Rx lisinopril 2.5 mg tablet 2.5 mg PO DAILY Hypertension #90 02/15/23 07/01/24 Rx tabs methocarbamol 1,000 mg tablet 1,000 mg PO TID muscle spasms #90 04/16/23 07/01/24 Rx tabs semaglutide 1 mg/dose (4 mg/3 mL) 1 mg SQ WEEKLY Diabetes 04/16/23 07/01/24 History subcutaneous pen injector pantoprazole 40 mg tablet,delayed See Rx Instructions .Route 04/24/23 07/01/24 Rx release .COMPLEX #90 tabs ropinirole 3 mg tablet See Rx Instructions .Route 04/24/23 07/01/24 Rx .COMPLEX #90 tabs insulin NPH-regular 70-30 U-100 See Rx Instructions .Route 05/24/23 07/01/24 Rx insulin 100 unit/mL subcutaneous .COMPLEX #15 mL pen (Humulin 70/30 U-100 KwikPen) ondansetron 4 mg disintegrating See Rx Instructions .Route 05/31/23 07/01/24 Rx tablet .COMPLEX #30 tabs flash glucose sensor (FreeStyle #1 ea 06/15/23 06/17/24 Rx Joelle 14 Day Sensor kit) trazodone 150 mg tablet See Rx Instructions .Route 07/12/23 07/01/24 Rx .COMPLEX #30 tabs mupirocin 2 % topical ointment 1 applic topical BID infection 10 01/23/24 06/17/24 Rx days #15 grams gabapentin 400 mg capsule 400 mg PO TID NEUROPATHY 07/01/24 07/01/24 History New Prescriptions to Start Prescriptions: Height: 1.68 m Weight: 110.336 kg Laboratory Results:: Laboratory Results - last 24 hr 07/01/24 18:45: WBC 12.0 H, RBC 5.36, Hgb 16.1, Hct 50.1 H, MCV 93.5, MCH 30.0, MCHC 32.1, RDW 14.5, Plt Count 286, MPV 7.0 L, Neut % (Auto) 75.1, Lymph % (Auto) 16.2, [place] % (Auto) 6.2, Eos % (Auto) 1.9, Baso % (Auto) 0.7, Neut # (Auto) 9.0 H, Lymph # (Auto) 2.0, [place] # (Auto) 0.7, Eos # (Auto) 0.2, Baso # (Auto) 0.1, ESR 16 07/01/24 18:45: ESR 16, Sodium 133 L, Potassium 4.1, Chloride 96 L, Carbon Dioxide 34 H, Anion Gap 7.1, BUN 10, Creatinine 0.60, Estimated Creat Clear 185, Estimated GFR 104, Est GFR ( Amer) 126, Glucose 116 H, Lactate 0.7, Calcium 9.3, Total Bilirubin 0.7, AST 24, ALT 14, Alkaline Phosphatase 129 H, C- Reactive Protein 53.3 H 07/01/24 18:45: C-Reactive Protein 52.2 H, Total Protein 8.2, Albumin 3.8, Globulin 4.4 H, Albumin/Globulin Ratio 0.9 L, Procalcitonin 0.046, HIV 1&2 Antibody Rapid Nonreactive 07/01/24 19:22: VBG pH 7.39, VBG pCO2 40.3, VBG pO2 28.6, VBG HCO3 24.0, VBG Total CO2 25.3, VBG O2 Saturation 69.2, VBG Base Excess -0.9, VBG Lactic Acid 4.6 H 07/01/24 23:40: Lactate 0.5 L 07/01/24 23:42: POC Glucose 106 07/02/24 06:20: Sodium 135 L, Potassium 4.8, Chloride 99, Carbon Dioxide 38 H, Anion Gap 2.8 L, BUN 10, Creatinine 0.70, Estimated Creat Clear 158, Estimated GFR 87, Est GFR ( Amer) 105, Glucose 112 H, Calcium 9.0, C-Reactive Protein 48.6 H Medical History: Medical History (Updated 07/01/24 @ 20:34 by FLORES Adler) Presence of intrathecal pump Excess skin of arm Encounter for wound care 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 Type 2 diabetes mellitus Diabetic foot Assessment and Plan Assessment and plan all Dx Assessment and Plan for all problems:: Pharmacokinetic dosing service Objective: Patient: Floor: Age: 54 yo Serum creatinine: 0.7 mg/dL Height: 66.1 Inches Weight (kg): 110 Assessment: IBW (kg): 59.53 Dosing wt(kg): 110 Estimated Creatinine clearance (ml/min): 85.3 CRCL method: Cockcroft and Gault using ibw(default). Drug selected: Vancomycin Loading dose (mg): 0 Vd (liters): 88.0 (factor used: 0.8 L/kg) [place]ie (hr-1): 0.075 Half life (hrs): 9.24 Recommended dose: 1750 mg Interval: 12 hrs Infusion time (hrs): 2.0 Predicted peak (mcg/mL): 31.1 Predicted trough (mcg/mL): 14.69 Total body weight is being used for vancomycin dosing. Recommendations: Give Vancomycin 1750 mg q 12 hrs with an expected Cpeak of 31.1 mcg/ml and an expected Ctrough of 14.69 mcg/ml ----Vanco only - ignore for aminoglycosides----- CLvanco= 6.60 L/hr AUC 0-24 /TABITHA Data: TABITHA 0.5 mcg/mL: AUC/TABITHA: 1060.6 TABITHA 1.0 mcg/mL: AUC/TABITHA: 530.3 --------- TABITHA 1.5 mcg/mL: AUC/TABITHA: 353.5 TABITHA 2.0 mcg/mL: AUC/TABITHA: 265.2
--- NOTE | 2024-07-02 08:20 | HMH.PHAINT1 ---
Pharmacy Intervention Comments: Home medication list verified using list from pharmacy and patient interview.
[2024-07-02 08:24] LABS: POC Glucose,Bedside 103 (70-110)
[2024-07-02] MEDS: FUROSEMIDE 80 MG TABLET PO ×2 (08:35→18:14)
[2024-07-02] MEDS: GABAPENTIN 400MG CAPSULE 400 MG PO ×3 (08:35→21:02)
[2024-07-02] MEDS: LISINOPRIL 2.5MG TABLET 2.5 MG PO (08:35)
[2024-07-02] MEDS: CITALOPRAM 40MG TABLET 40 MG PO (08:35)
[2024-07-02] MEDS: CARVEDILOL 25MG TABLET 25 MG PO ×2 (08:35→21:02)
[2024-07-02] MEDS: FENOFIBRATE 54MG TABLET 54 MG PO (08:35)
[2024-07-02] MEDS: VANCOMYCIN/WATER FOR INJ (PEG) 1.75 GM/350 ML PIGGYBACK IV ×2 (08:35→21:00)
[2024-07-02] MEDS: LEVOTHYROXINE 100MCG (0.1MG) TAB 200 MCG PO (08:36)
[2024-07-02] MEDS: ISOSORBIDE MONO 30MG TAB.ER.24H 30 MG PO (08:36)
[2024-07-02] MEDS: METHOCARBAMOL 500MG TABLET 1000 MG PO ×3 (08:36→21:02)
[2024-07-02] MEDS: DULOXETINE 30MG CAPSULE.DR 60 MG PO (08:36)
[2024-07-02] MEDS: HEPARIN SODIUM 5,000 UNIT/ML VIAL 5000 UNIT SQ ×2 (08:43→18:14)
[2024-07-02 08:53] LABS: Erythrocyte Sedimentation Rate 60 mm/hr (0-30)
[2024-07-02 08:58] LABS: Basophils # 0.1 K/mm3 (0-0.2); Eosinophils # 0.3 K/mm3 (0.0-0.4); Eosinophils % 3.1 % (0.1-12.0); Hematocrit 44.7 % (37.0-47.0); Hemoglobin 14.6 g/dL (12.2-16.2); Lymphocytes # 2.1 K/mm3 (0.7-4.5); Lymphocytes % 26.6 % (10-50); Mean Corpuscular HGB Conc 32.6 g/dL (31.8-35.4); Mean Corpuscular Hemoglobin 30.6 pg (27.0-31.2); Mean Platelet Volume 8.7 fl (7.4-10.4); Monocytes # 0.7 K/mm3 (0.1-1.0); Monocytes % 8.2 % (1.7-9.3); Neutrophils # 4.8 K/mm3 (1.8-7.8); Neutrophils % 61.1 % (37.0-80.0); Platelet Count 243 K/mm3 (142-424); Red Blood Count 4.75 M/mm3 (4.20-5.40); Red Cell Distribution Width 14.6 % (11.5-17.5); White Blood Count 7.9 K/mm3 (4.8-10.8)
[2024-07-02 11:49] LABS: POC Glucose,Bedside 99 (70-110)
--- NOTE | 2024-07-02 13:21 | EXP.ANES.CKL ---
[facility] Disclaimer: The information contained in this section may have been updated after the patient was seen, as this information can be updated by other users. 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 Type 2 diabetes mellitus Diabetic foot Surgical History Total knee replacement status bilateral Family History Other Family history of COPD (chronic obstructive pulmonary disease) Family history of cancer Family history of diabetes mellitus type II Family history of hypertension Family history of myocardial infarction Social History (Updated 07/01/24 @ 22:49 by Hodan Jovel RN) Smoking Status: Current some day smoker tobacco type: cigarettes packs per day: 1 second hand exposure: Yes alcohol intake: never substance use type: denies use current occupational status: other Travel in the last 8 weeks: None household members: friend(s) housing: house lives independently: Yes marital status: single education level: high school 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 caffeine: Yes special heather needs: No agree to transfusion: No do you feel safe at home: Yes victim of physical abuse: No victim of emotional abuse: No victim of sexual abuse: No would you like helpful sources: No [facility] Anesthesia Checklist Patient Identification Patient Identification: Arm Band and Family Structural Data Admitted From: Inpatient Planned Operative Procedure/s: I and D Right foot Verified Documents: Surgical Consent and History and Physical NPO Status Verified Time NPO: 00:00 Additional verifications Patient : No Anesthesia Reactions: No Hx Blood Transfusions: No Blood Transfusion Reaction: No Cephalosporin Allergy: No Airway Assessment Mallampati Score:: Class II C-Spine Mobility Assessed: Yes TMJ Mobility Assessed: Yes Dentition: Edentulous Neurological Assessment Level of Consciousness: Awake, Alert, Appropriate and Follows Commands Hx Seizures: No Numbness or tingling in extremities: No Anesthesia Plan Anesthesia Risk discussed: Yes ASA Class: III Anesthesia Type: MAC Preoperative Comments Pre-Operative Comments: Hypertension. COPD. IDDM=99 glucose. Controlled acid reflux.
[2024-07-02] MEDS: VANCOMYCIN 1000MG VIAL 1000 MG (15:05)
[2024-07-02] MEDS: GENTAMICIN 80 MG/2 ML VIAL (15:05)
[2024-07-02] MEDS: CLINDAMYCIN PHOSPHATE/D5W 900 MG/50 ML PIGGYBACK 100 MG IV (15:05)
--- NOTE | 2024-07-02 16:21 | EXP.ANES.I ---
[facility] Anesthesia Record Part I Anesthesia Record I Intake, IV Amount: 900 Hydration: Adequate Estimated blood loss (mL): 300 Urine output (mL): 0 Blood Products used (#): none Blood Pressure: 149/68 SaO2: 96 Pulse Rate: 73 Airway Patency: Patent Respiratory Rate: 14 Temperature: 97.6 F Patient is:: Drowsy and Stable Stable to PACU at:: 16:15
[2024-07-02 16:24] LABS: POC Glucose,Bedside 108 (70-110)
--- NOTE | 2024-07-02 16:24 | P.OP_ITS ---
Date of procedure: 07/02/24 Pre-op Diagnosis:: Right fifth metatarsal osteomyelitis Right diabetic foot ulcer x2 Right foot cellulitis Post-op Diagnosis:: Same Procedure performed:: Right fifth ray (metatarsal, toe) amputation Right foot incision and drainage Right foot wide excisional debridement Application of ARLINE drain Surgeon:: Moira Ortiz DPM [employer]:: Manfred Taylor Anesthesia: GETA Estimated blood loss (mL): 40 Clinical Note:: Patient is a 54-year-old female diabetic who was initially seen and evaluated in the [facility] ED yesterday. She has been seeing [facility] lymphedema/wound care clinic. Saw Frank 06/26/2024 and Myra 07/01/2024. At yesterday's visit Myra recommended she go to the ER due to infection. Patient reports wound for several weeks and was initially seen at [facility] where she was started on antibiotics. She was supposed to follow-up with podiatry but did not. CT and radiographs of the right foot were reviewed and discussed with the patient. Imaging shows abscess, cortical changes consistent with osteomyelitis to the f [facility] metatarsal base. Given her clinical presentation with fifth submet head callus now ulcer question some changes from plain film x-rays to the fifth met head. We discussed conservative versus surgical treatment options. Conservative treatment options include local wound care, oral and IV antibiotics, change in shoe wear, taping/padding, and off-loading. We discussed surgical intervention for I&D of the abscess and debridement of nonviable soft tissue/bone and amputation of the fifth ray. Patient understands that there is a chance that the toes can migrate to fill the gap or the foot may change shape after surgery. Patient also understands that they could have wound healing complications including delayed healing and infection. ABIs checked today and show adequate flow to heal. We discussed that if the wound does not heal, it is possible that they may need a more proximal amputation and could result in further loss of digits, loss of partial foot or loss of leg. We discussed the risks and benefits in great detail. Other surgical risks include: prolonged pain and swelling, further infection requiring oral or IV antibiotics, delay in healing of soft tissue or bone, nerve or blood vessel damage, recurrence of cellulitis or osteomyelitis, need for further surgery, CRPS/RSD, DVT/PE, anesthesia complications, and even . All questions answered. Patient verbalized understanding. Consent obtained. Operative findings:: Right foot edema and cellulitis noted around the fifth metatarsal diabetic foot ulcer. Ulcer extends full-thickness and probes to the level of the fifth metatarsal base. Fifth metatarsal was fragmented and crumbly with purulence localized at the DFU site. There was a subfifth metatarsal head ulcer with periwound callus noted. This ulcer tracked to the fifth metatarsal base. Fifth metatarsal head was soft plantarly with suspected osteomyelitis. The fifth ray was removed in total. The peroneal tendon insertion was nonviable. The tendon was shredded where the fifth metatarsal base was fragmented. No significant sinus tracking noted along the plantar aspect of the foot or up toward the ankle. All the infections seem to be localized around the ulcer site. Both ulcers were excised full-thickness during the fifth ray amputation. Overall prognosis fair. Operative note:: On this date and time patient was deemed an appropriate surgical candidate. With informed consent signed, the patient was taken to the operating theater. The patient was positioned supine. General anesthesia was induced. No tourniquet used. Patient got Belgica Calvo scheduled on floor this morning. IV clindamycin infused. Right lower extremity prepped and draped in normal sterile fashion. Right foot incision and drainage: Incision was made between the subfifth metatarsal head and diabetic foot ulcer over the fifth metatarsal base full- thickness down to level of the bone. Purulent drainage expressed from the level of the ulcer. Wound culture had been taken at the bedside. Drainage appeared to be localized at the ulcer site. No significant tracking noted. Right foot irrigation and debridement: Next 15 blade and forceps were used to sharply excisionally debride nonviable soft tissue and bone. Wide excisional debridement included both diabetic foot ulcers along with peroneus brevis tendon insertion at the fifth metatarsal fragmented base. Right fifth ray amputation: Next due to the osteomyelitis suspected at the fifth metatarsal head and the fifth metatarsal base the entire fifth ray was removed. Next 3 L gentamicin irrigation was used and a pulse lavage to flush to the area. Area was reexplored and no sinus tracking or drainage noted. As previously mentioned the infection appeared to be contained to the fifth metatarsal base diabetic foot ulcer site. Next vancomycin powder was inserted into the wound. 2-0 nylon was used to reapproximate the skin edges distally. ARLINE drain application: A ARLINE drain was inserted where the fifth metatarsal/toe right amputation was performed. Partial closure of the wound. The skin over the proximal aspect of the I&D site was not closed. It was left open to drain. Betadine soaked gauze was packed into the area. Vancomycin powder applied over the skin. Betadine soaked gauze, dry sterile dressing applied to the right foot. Patient was awoken from anesthesia with vital signs stable and neurovascular status intact. She appeared to tolerate procedure and anesthesia well without complication. She was stable to be transferred back to the floor. Plan: Maintain dressing clean dry and intact. ARLINE drain maintenance. NWB to RLE in postop shoe with walker/wheelchair. Consult care management: For discharge planning, she will need daily dressing changes with Betadine packing, dry sterile dressing and abx mgmt. Concern over her compliance. Recommend continuation of IV antibiotics until cultures finalized. Plan for podiatry dressing change in the a.m. Condition: stable Disposition: floor Specimens:: Right fifth metatarsal bone culture Right foot ulcer tissue culture Right fifth metatarsal bone pathology Complications:: None
--- NOTE | 2024-07-02 16:32 | P.PN_ITS ---
Subjective *Date: 07/02/24 *Time: 16:32 Interval history: Patient was sitting in bed comfortably this morning without acute concerns or distress. Denies chest pain, shortness of breath. Endorses right foot pain, mildly improving with Dilaudid. Looking forward to getting procedure with podiatry done so she can eat this afternoon. Exam Data for Last 24 hours Vital signs and Labs for Last 24 Hours: Temp Pulse Resp BP Pulse Ox O2 Del Method O2 Flow Rate 97.6 F 73 14 149/68 H 3 L Room Air 3 07/02/24 16:26 07/02/24 16:26 07/02/24 16:26 07/02/24 16:26 07/02/24 08:00 07/02/24 11:00 07/02/24 09:00 FiO2 32 07/02/24 02:12 Laboratory Results - last 24 hr 07/01/24 18:45: WBC 12.0 H, RBC 5.36, Hgb 16.1, Hct 50.1 H, MCV 93.5, MCH 30.0, MCHC 32.1, RDW 14.5, Plt Count 286, MPV 7.0 L, Neut % (Auto) 75.1, Lymph % (Auto) 16.2, [place] % (Auto) 6.2, Eos % (Auto) 1.9, Baso % (Auto) 0.7, Neut # (Auto) 9.0 H, Lymph # (Auto) 2.0, [place] # (Auto) 0.7, Eos # (Auto) 0.2, Baso # (Auto) 0.1, ESR 16 07/01/24 18:45: ESR 16, Sodium 133 L, Potassium 4.1, Chloride 96 L, Carbon Dioxide 34 H, Anion Gap 7.1, BUN 10, Creatinine 0.60, Estimated Creat Clear 185, Estimated GFR 104, Est GFR ( Amer) 126, Glucose 116 H, Lactate 0.7, Calcium 9.3, Total Bilirubin 0.7, AST 24, ALT 14, Alkaline Phosphatase 129 H, C- Reactive Protein 53.3 H 07/01/24 18:45: C-Reactive Protein 52.2 H, Total Protein 8.2, Albumin 3.8, Globulin 4.4 H, Albumin/Globulin Ratio 0.9 L, Procalcitonin 0.046, HIV 1&2 Antibody Rapid Nonreactive 07/01/24 19:22: VBG pH 7.39, VBG pCO2 40.3, VBG pO2 28.6, VBG HCO3 24.0, VBG Total CO2 25.3, VBG O2 Saturation 69.2, VBG Base Excess -0.9, VBG Lactic Acid 4.6 H 07/01/24 23:40: Lactate 0.5 L 07/01/24 23:42: POC Glucose 106 07/02/24 06:20: WBC 7.9 D, RBC 4.75, Hgb 14.6, Hct 44.7, MCV 94.0, MCH 30.6, MCHC 32.6, RDW 14.6, Plt Count 243, MPV 8.7, Neut % (Auto) 61.1, Lymph % (Auto) 26.6, [place] % (Auto) 8.2, Eos % (Auto) 3.1, Baso % (Auto) 1.0, Neut # (Auto) 4.8, Lymph # (Auto) 2.1, [place] # (Auto) 0.7, Eos # (Auto) 0.3, Baso # (Auto) 0.1, ESR 60 H, Sodium 135 L, Potassium 4.8, Chloride 99, Carbon Dioxide 38 H, Anion Gap 2.8 L, BUN 10, Creatinine 0.70, Estimated Creat Clear 158, Estimated GFR 87, Est GFR ( Amer) 105, Glucose 112 H, Hemoglobin A1c 7.0 H, Calcium 9.0, C- Reactive Protein 48.6 H 07/02/24 08:16: POC Glucose 103 07/02/24 11:34: POC Glucose 99 07/02/24 16:18: POC Glucose 108 I & O for Last 24 hours: Intake & Output 06/29/24 06/30/24 07/01/24 07/02/24 23:59 23:59 23:59 23:59 Intake Total 2260 Output Total 320 320 / 320 Balance 1 1940 Weight 110.336 kg 110.336 kg Constitutional Constitutional: no acute distress *Routine HEENT Exam Head: Present normocephalic Eye: Present EOMI and PERRL ENT: Present mucous membranes moist *Routine Neck Exam Neck: Present supple; Absent lymphadenopathy *Routine Respiratory Exam Respiratory: Present CTA bilaterally *Routine Cardiovascular Exam Cardiovascular: Present RRR *Routine Abdominal Exam Abdominal: Present soft and normoactive bowel sounds; Absent tenderness *Routine Extremities Exam Extremities: Absent cyanosis, clubbing or edema Comments: R foot has ulcer on plantar surface, tender to touch, pus coming out. Wrapped with gauze and Jose bandage. *Routine Skin Exam Skin: Present warm; Absent rash *Routine Neurological Exam Neurological: Present alert and oriented X3 Assessment and Plan *Assessment and plan (1) Cellulitis of right foot: Status: Acute Category: Medical Code(s): L03.115 - Cellulitis of right lower limb (2) Osteomyelitis: Status: Acute Qualifiers: Laterality: right Osteomyelitis location: foot Osteomyelitis type: unspecified type Qualified Code(s): M86.9 - Osteomyelitis, unspecified Category: Medical Code(s): M86.9 - Osteomyelitis, unspecified (3) Diabetic foot ulcer: Status: Acute Qualifiers: Diabetic foot ulcer location: other Diabetes mellitus type: type 2 Laterality: right Non-pressure ulcer stage: with necrosis of bone Qualified Code(s): E11.621 - Type 2 diabetes mellitus with foot ulcer; L97.514 - Non- pressure chronic ulcer of other part of right foot with necrosis of bone Category: Medical Code(s): E11.621 - Type 2 diabetes mellitus with foot ulcer; L97.509 - Non-pressure chronic ulcer of other part of unspecified foot with unspecified severity Plan Patient is a 54-year-old female with past medical history of diabetes mellitus, diabetic neuropathy who presents to the hospital due to right foot pain as well as diabetic foot ulcer. 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 Patient reports pus discharge from ulcer as well as worsening pain 10/10 intensity constant, sharp. Patient otherwise denied chest pain shortness of sukhjinder ath nausea vomiting diarrhea constipation dysuria fevers and chills. Assessment and plan R Diabetic foot ulcer R Diabetic foot cellulitis Acute on chronic osteomyelitis of R foot ?Patient states she has had a right foot ulcer for the past few months, getting worse over the past week. ? CT of the foot concerning for acute on chronic osteomyelitis, CRP and ESR also significantly elevated. ? Leukocytosis improved from 12.0-7.9 today. ? Continue IV vancomycin, Zosyn. ? Podiatry will perform debridement versus amputation today. ? Pain control with Dilaudid, morphine. ? Anticipate at least 6 weeks of IV antibiotics pending podiatry procedure today. Diabetes mellitus ?LDSSI, ACHS glucose checks Chronic medical conditions Hypertension Hypothyroidism Depression Hyperlipidemia Restless leg syndrome -Resume home medications including coreg, lisinopril, ropinirole, methimazole, Protonix, trazodone, duloxetine. ? Hold home Lasix, Imdur pending improvement in blood pressures
[2024-07-02] MEDS: HYDROMORPHONE 2MG/ML SYRINGE 0.5 MG IV (16:48)
[2024-07-02] MEDS: MORPHINE 2MG/ML SYRINGE 2 MG IV (18:13)
--- NOTE | 2024-07-02 19:10 | PC.NURSE ---
Addendum entered by Lily Aguillon RN 07/02/24 19:22: Pt dressing on Right foot C/D/I. ARLINE drain also noted. Addendum entered by Lily Aguillon RN 07/02/24 19:15: Pt is on 3L NC which is pt baseline. Original Note: Pt a&ox4. Pt had I&D of wound on right foot and partial amp of 5th metatarsal today. Pt c/o pain in right leg/foot and has been medicated per NOV. Pt is non weight bearing on right leg. voiding per chyna. VSS.
[2024-07-02] MEDS: ROPINIROLE 1MG TABLET 3 MG PO (21:03)
[2024-07-02] MEDS: TRAZODONE 50MG TABLET 150 MG PO (21:03)
[2024-07-02] MEDS: PANTOPRAZOLE 40MG TABLET 40 MG PO (21:11)
[2024-07-02 21:41] LABS: POC Glucose,Bedside 127 (70-110)
[2024-07-03] VITALS (8 sets, daily range): BP systolic 104–160; BP diastolic 54–68; PULSE 74–102; RESP 14–18; TEMP 36.6–37.4; O2SAT 90–98; BMI 37.5
[2024-07-03] MEDS: HEPARIN SODIUM 5,000 UNIT/ML VIAL 5000 UNIT SQ ×2 (00:26→08:55)
[2024-07-03] MEDS: HYDROMORPHONE 2MG/ML SYRINGE 1 MG IV ×4 (04:30→19:36)
[2024-07-03] MEDS: PIPERACILLIN/TAZO 3.375 GM in 0.9 % SODIUM CHLORIDE 50 ML IV ×4 (04:30→23:54)
[2024-07-03 05:22] LABS: HCV Ab Non Reactive (Non Reactive)
--- NOTE | 2024-07-03 05:24 | PC.NURSE ---
Patient is alert and oriented x4. Patient had podiatry surgery consisting of debridement and amputation to her right foot (fifth metatarsal removed) during the previous shift (07/02). Patient's right foot is wrapped with REILLY wrap and a ARLINE drain remains intact; little output from the ARLINE drain was noticed and not emptied. Drainage from drain is sanguineous. Patient has been given a few doses of Dilautid 1mg per MAR through the shift for pain control; patient was also given an ice pack for her right knee for complaints of knee discomfort as well. Patient's right leg has more swelling compared to the left leg. She has also received her scheduled medications per MAR, including IV antibiotics. Patient's post-operative vital signs were completed this shift; patient's blood pressures have trended to the softer side this shift. Other vital signs have remained relatively stable. Patient was observed to have eyes closed, respirations even and unlabored on 3 L of oxygen via nasal cannula, and no apparent distress for the majority of the shift. Her visitor has remained at bedside through the night. Patient has remained on a purewick and has not gotten out of bed due to pending weight bearing status and PT assessment post-operative. Very adequate and significant urine output was noted this shift due to diuresing therapy. Patient has a follow-up with podiatry and a consult with case management ordered. Patient's lung sounds were clear and bowel sounds were active upon auscultation. Patient does not have any further complaints at this time. She is currently sitting up in bed. No acute changes noted thus far. Call light within reach.
[2024-07-03 06:19] LABS: POC Glucose,Bedside 141 (70-110)
--- NOTE | 2024-07-03 06:38 | EXP.POD.CONS ---
History of Present Illness *Admission Date: 07/01/24 *History of present illness: Patient is a 54-year-old female with past medical history of diabetes mellitus, diabetic neuropathy who presents to the hospital due to right foot pain as well as diabetic foot ulcer. 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 Patient reports pus discharge from ulcer as well as worsening pain 10/10 intensity constant, sharp. Patient otherwise denied chest pain shortness of breath nausea vomiting diarrhea constipation dysuria fevers and chills. 07/02/24: Podiatry consult Patient is a 54-year-old female that is a current podiatry patient that I recently saw in the clinic in December for a loose toenail. Patient states the wound started couple weeks ago with a blister. Patient was seen in [facility] ER at that time was given antibiotics, x-ray she stated at that time did not show bone infection. Patient was then seen last night in our [facility] ER with foot pain drainage and worsening ulceration to the right foot. X-rays have now shown acute on chronic osteomyelitis to the right foot. Patient has been kept n.p.o. after midnight. Plan for patient to be added to surgery schedule today. Verbal as well as written consent has been obtained by the patient for incision and drainage right foot, irrigation and debridement of nonviable soft tissue and bone, partial fifth metatarsal amputation (possible wound VAC application) for bone abscess. Wound culture has been obtained from the site this morning. Patient reports intense pain when compressing around the right foot ulceration and directly above the ulceration is a callus with a small 0 x 3 x 0.3 cm opening. Denies any fever, nausea or vomiting. Patient was receiving IV pain medication at the time of my rounding. [facility] Disclaimer: The information contained in this section may have been updated after the patient was seen, as this information can be updated by other users. 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 Type 2 diabetes mellitus Diabetic foot Surgical History Total knee replacement status bilateral Family History Other Family history of COPD (chronic obstructive pulmonary disease) Family history of cancer Family history of diabetes mellitus type II Family history of hypertension Family history of myocardial infarction Social History (Updated 07/01/24 @ 22:49 by Hodan Jovel RN) Smoking Status: Current some day smoker tobacco type: cigarettes packs per day: 1 second hand exposure: Yes alcohol intake: never substance use type: denies use current occupational status: other Travel in the last 8 weeks: None household members: friend(s) housing: house lives independently: Yes marital status: single education level: high school current occupation: [employer] caffeine: Yes special heather needs: No agree to transfusion: No do you feel safe at home: Yes victim of physical abuse: No victim of emotional abuse: No victim of sexual abuse: No would you like helpful sources: No Meds Home Medications and Allergies Home Medications ?Medication ?Instructions ?Recorded ?Confirmed ?Type flash glucose sensor 05/04/22 06/17/24 History flash glucose scanning reader 08/14/22 06/17/24 History (Boxxet Joelle 14 Day [place]) carvedilol 25 mg tablet 25 mg PO BID High blood pressure 02/15/23 07/01/24 Rx 90 days #180 tabs duloxetine 60 mg capsule,delayed 60 mg PO DAILY MOOD #90 caps 02/15/23 07/01/24 Rx release escitalopram oxalate 20 mg tablet 20 mg PO DAILY Depression #90 tabs 02/15/23 07/01/24 Rx fenofibrate 54 mg tablet 54 mg PO DAILY Cholesterol #90 tabs 02/15/23 07/01/24 Rx insulin glargine 100 unit/mL (3 10 unit (0.1 mL) SQ HS Diabetes 02/15/23 07/01/24 Rx mL) subcutaneous pen #15 mL lisinopril 2.5 mg tablet 2.5 mg PO DAILY Hypertension #90 02/15/23 07/01/24 Rx tabs methocarbamol 1,000 mg tablet 1,000 mg PO TID muscle spasms #90 04/16/23 07/01/24 Rx tabs semaglutide 1 mg/dose (4 mg/3 mL) 2 mg SQ WEEKLY Diabetes 04/16/23 07/02/24 History subcutaneous pen injector flash glucose sensor (E-nterviewyle #1 ea 06/15/23 06/17/24 Rx Joelle 14 Day Sensor kit) gabapentin 400 mg capsule 400 mg PO TID NEUROPATHY 07/01/24 07/01/24 History furosemide 40 mg tablet 40 mg PO BID 07/02/24 07/02/24 History hydroxyzine pamoate 25 mg capsule 25 mg PO TID PRN Panic Disorder 07/02/24 07/02/24 History insulin NPH-regular 70-30 U-100 60 unit SQ BID 07/02/24 07/02/24 History insulin 100 unit/mL subcutaneous pen (Humulin 70/30 U-100 KwikPen) isosorbide dinitrate 30 mg tablet 30 mg PO BID 07/02/24 07/02/24 History methimazole 5 mg tablet 2.5 mg PO DAILY 07/02/24 07/02/24 History pantoprazole 40 mg tablet,delayed 40 mg PO DAILY 07/02/24 07/02/24 History release ropinirole 3 mg tablet 3 mg PO HS 07/02/24 07/02/24 History tizanidine 4 mg tablet 4 mg PO BID PRN Myalgia 07/02/24 07/02/24 History trazodone 150 mg tablet 150 mg PO HS 07/02/24 07/02/24 History New Prescriptions to Start Prescriptions: Allergies Allergy/AdvReac Type Severity Reaction Status Date / Time ceftriaxone [From ROCEPHIN] Allergy Unknown Verified 01/23/24 14:56 droperidol [From INAPSINE] Allergy Unknown Verified 01/23/24 14:56 ibuprofen [IBUPROFEN] Allergy Unknown Verified 01/23/24 14:56 moxifloxacin [From AVELOX] Allergy Unknown Verified 01/23/24 14:56 Exam (Inpt) Vital signs and Labs for Last 24 Hours: Temp Pulse Resp BP Pulse Ox O2 Del Method O2 Flow Rate 98.7 F 80 18 110/54 L 93 L Nasal Cannula 3 07/03/24 04:00 07/03/24 04:00 07/03/24 04:00 07/03/24 04:00 07/03/24 04:00 07/03/24 05:00 07/03/24 05:00 FiO2 32 07/02/24 02:12 Laboratory Results - last 24 hr 07/01/24 18:45: Hepatitis C Antibody Non reactive 07/02/24 06:20: WBC 7.9 D, RBC 4.75, Hgb 14.6, Hct 44.7, MCV 94.0, MCH 30.6, MCHC 32.6, RDW 14.6, Plt Count 243, MPV 8.7, Neut % (Auto) 61.1, Lymph % (Auto) 26.6, Wagoner % (Auto) 8.2, Eos % (Auto) 3.1, Baso % (Auto) 1.0, Neut # (Auto) 4.8, Lymph # (Auto) 2.1, Wagoner # (Auto) 0.7, Eos # (Auto) 0.3, Baso # (Auto) 0.1, ESR 60 H, Sodium 135 L, Potassium 4.8, Chloride 99, Carbon Dioxide 38 H, Anion Gap 2.8 L, BUN 10, Creatinine 0.70, Estimated Creat Clear 158, Estimated GFR 87, Est GFR ( Amer) 105, Glucose 112 H, Hemoglobin A1c 7.0 H, Calcium 9.0, C-Reactive Protein 48.6 H 07/02/24 08:16: POC Glucose 103 07/02/24 11:34: POC Glucose 99 07/02/24 16:18: POC Glucose 108 07/02/24 21:21: POC Glucose 127 H 07/03/24 05:58: POC Glucose 141 H I & O for Labs for Last 24 Hours: Intake & Output 06/30/24 07/01/24 07/02/24 07/03/24 23:59 23:59 23:59 23:59 Intake Total 2261 / 2261 622 / 622 Output Total 0 / 0 320 / 320 1450 / 1450 Balance 0 / 0 1941 / 1941 -828 / -828 Weight 243 lb 4 oz 243 lb 4 oz 234 lb Microbiology Reports for the Last 24 Hours: Microbiology 07/01/24 19:25 Blood Blood Culture - Preliminary NO GROWTH AFTER 24 HOURS 07/01/24 18:45 Blood Blood Culture - Preliminary NO GROWTH AFTER 24 HOURS 07/02/24 07:20 Foot,Right - Abscess Gram Stain - Final Constitutional: Present mild distress, obese and cooperative Head: Present normocephalic Eye: Present as per HPI Neck: Present trachea midline Respiratory: Present normal respiratory effort and able to speak in complete sentences Cardiac: Present posterior tibial pulses present and pedal pulses present Comment:: ABIs were obtained as I was entering the room this morning for rounding. Right total AUBRIE 0.93, left total AUBRIE 1.18. Comments:: Deferred Rectal (female): Present deferred (female): Present deferred Extremities: Present normal capillary refill and edema (1+ right foot and lower extremity edema; improving ); Absent calf tenderness Comment:: Cellulitis noted to the right foot extending up lower leg. Skin: Present erythema, warm and wounds (right lateral foot DFU, cellulitis to foot/lower leg. ) Comment:: Right 5th ray (metatarsal, toe) amputation, I&D, wide excisional debridement, ARLINE drain. Neuro: Present Motor Function Intact, Tingling, oriented x 3 and moves all extremities Comment:: Decreased sensation,Patient with history of neuropathy. Ankle: right: swelling, right: tenderness, right: wound (s/p Right 5th met, toe amputation, ARLINE drain ) and right: decreased ROM Comment:: Sx. 07/02/24 R 5th met, toe amp. r/t OM, ARLINE drain in place. Feet/Toes: right: swelling (right foot cellulitis, s/p 5th metatarsal & toe amputation), right: tenderness (R Foot surgical site ) and right: decreased ROM and bilateral: hammer toe and bilateral: nail abnormalities (thick, discolored) Inspection: Present nail disorder, skin break, infection and ulceration (right lateral foot surgical foot: right 5th met and toe amputation, application of ARLINE drain) Pulses: L dorsalis pedis pulse: normal, R dorsalis pedis pulse: normal, L posterior tibial pulse: diminished (present but diminished secondary to edema ) and R posterior tibial pulse: diminished (present but diminished secondary to edema) CFT: normal: CFT Monofilament exam: R 1st metatarsals: decreased, R 3rd metatarsals: decreased, R 5th metatarsals: decreased, R great toe: decreased, R 3rd toe: decreased and R 5th toe: decreased Pinprick: R great toe: abnormal Ankle reflex: Right: abnormal Results Labs 07/03/24 06:28 07/03/24 06:28 Labs: Abnormal lab results 07/02/24 07/02/24 07/03/24 Range/Units 06:20 21:21 05:58 ESR 60 H (0-30) mm/hr Sodium 135 L (136-145) mmol/L Carbon Dioxide 38 H (22.0-30.0) mmol/L Anion Gap 2.8 L (5-15) mEq/L Glucose 112 H (74-100) mg/dl POC Glucose 127 H 141 H (70-110) Hemoglobin A1c 7.0 H (4.0-6.0) % C-Reactive Protein 48.6 H (0-4) mg/L H & H 07/01/24 07/02/24 Range/Units 18:45 06:20 Hgb 16.1 14.6 (12.2-16.2) g/dL Hct 50.1 H 44.7 (37.0-47.0) % All other labs normal. Assessment and Plan *Assessment and plan (1) Osteomyelitis: Status: Acute Qualifiers: Laterality: right Osteomyelitis location: foot Osteomyelitis type: unspecified type Qualified Code(s): M86.9 - Osteomyelitis, unspecified Category: Medical Code(s): M86.9 - Osteomyelitis, unspecified (2) Diabetic foot ulcer: Status: Acute Qualifiers: Diabetes mellitus type: type 2 Diabetic foot ulcer location: other Laterality: right Non-pressure ulcer stage: with necrosis of bone Qualified Code(s): E11.621 - Type 2 diabetes mellitus with foot ulcer; L97.514 - Non-pressure chronic ulcer of other part of right foot with necrosis of bone Category: Medical Code(s): E11.621 - Type 2 diabetes mellitus with foot ulcer; L97.509 - Non-pressure chronic ulcer of other part of unspecified foot with unspecified severity (3) Diabetes: Status: Chronic Qualifiers: Diabetes mellitus complication status: with other specified complication Diabetes mellitus skilled nursing insulin use: with manager long term care use Diabetes mellitus type: type 2 Qualified Code(s): E11.69 - Type 2 diabetes mellitus with other specified complication Category: Medical Code(s): E11.9 - Type 2 diabetes mellitus without complications (4) Hypertension: Status: Chronic Qualifiers: Hypertension type: essential hypertension Qualified Code(s): I10 - Essential (primary) hypertension Category: Medical Code(s): I10 - Essential (primary) hypertension (5) Hypothyroidism: Status: Chronic Qualifiers: Hypothyroidism type: acquired Qualified Code(s): E03.9 - Hypothyroidism, unspecified Category: Medical Code(s): E03.9 - Hypothyroidism, unspecified (6) Depression: Status: Chronic Qualifiers: Depression Type: unspecified Qualified Code(s): F32.A - Depression, unspecified Category: Medical Code(s): F32.9 - Major depressive disorder, single episode, unspecified (7) Anxiety: Status: Chronic Category: Medical Code(s): F41.9 - Anxiety disorder, unspecified (8) Fibromyalgia: Status: Chronic Category: Medical Code(s): M79.7 - Fibromyalgia (9) Pre-ulcerative calluses: Status: Acute Category: Medical Code(s): L84 - Corns and callosities (10) Cellulitis of right foot: Status: Acute Category: Medical Code(s): L03.115 - Cellulitis of right lower limb (11) Decreased pedal pulses: Status: Acute Category: Medical Code(s): R09.89 - Other specified symptoms and signs involving the circulatory and respiratory systems (12) Soft tissue infection of foot: Status: Acute Category: Medical Code(s): L08.9 - Local infection of the skin and subcutaneous tissue, unspecified (13) Neuropathy: Status: Chronic Category: Medical Code(s): G62.9 - Polyneuropathy, unspecified (14) Onychoincurvatum: Status: Acute Category: Medical Code(s): L60.8 - Other nail disorders (15) Onychodystrophy: Status: Acute Category: Medical Code(s): L60.3 - Nail dystrophy (16) Keratosis: Status: Acute Category: Medical Code(s): L57.0 - Actinic keratosis (17) Diabetic foot ulcer: Status: Acute Qualifiers: Diabetes mellitus type: type 2 Diabetic foot ulcer location: heel Laterality: right Non-pressure ulcer stage: with other severity Qualified Code(s): E11.621 - Type 2 diabetes mellitus with foot ulcer; L97.418 - Non-pressure chronic ulcer of right heel and midfoot with other specified severity Category: Medical Code(s): E11.621 - Type 2 diabetes mellitus with foot ulcer; L97.509 - Non-pressure chronic ulcer of other part of unspecified foot with unspecified severity (18) Amputation of toe: Status: Acute Qualifiers: Laterality: right Qualified Code(s): S98.131A - Complete traumatic amputation of one right lesser toe, initial encounter Category: Medical Code(s): S98.139A - Complete traumatic amputation of one unspecified lesser toe, initial encounter (19) Status post amputation: Start date: 08/02/24 Problem Comment: Right fifth ray(metatarsal, toe) amputation for Osteomyelitis Status: Acute Category: Surgical Code(s): Z89.9 - Acquired absence of limb, unspecified (20) Acute osteomyelitis: Status: Acute Category: Medical Code(s): M86.10 - Other acute osteomyelitis, unspecified site Plan Patient is a 54-year-old female with past medical history of diabetes mellitus, diabetic neuropathy who presents to the hospital due to right foot pain as well as diabetic foot ulcer. 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 Patient reports pus discharge from ulcer as well as worsening pain 10/10 intensity constant, sharp. Patient otherwise denied chest pain shortness of breath nausea vomiting diarrhea constipation dysuria fevers and chills. 07/02/24: Podiatry consult Patient is a 54-year-old female that is a current podiatry patient that I recently saw in the clinic in December for a loose toenail. Patient states the wound started couple weeks ago with a blister. Patient was seen in [facility] ER at that time was given antibiotics, x-ray she stated at that time did not show bone infection. Patient was then seen last night in our [facility] ER with foot pain drainage and worsening ulceration to the right foot. X-rays have now shown acute on chronic osteomyelitis to the right foot. Patient has been kept n.p.o. after midnight. Plan for patient to be added to surgery schedule today. Verbal as well as written consent has been obtained by the patient for incision and drainage right foot, irrigation and debridement of nonviable soft tissue and bone, partial fifth metatarsal amputation (possible wound VAC application) for bone abscess. Wound culture has been obtained from the site this morning. Patient reports intense pain when compressing around the right foot ulceration and directly above the ulceration is a callus with a small 0 x 3 x 0.3 cm opening. This more than likely this may have been the start of the abscess. Patient denies any fever, nausea or vomiting. Patient was receiving IV pain medication at the time of my rounding. 07/03/24: Post Op day #1, Sx. 07/02/24: S/P Right fifth ray (metatarsal, toe) amputation, Right foot incision and drainage, Right foot wide excisional debridement, Application of ARLINE drain Patient doing well this morning, having some pain after dressing change, but denies any nausea, ready to eat breakfast. Plan: Maintain dressing clean dry and intact. ARLINE drain maintenance. NWB to RLE in postop shoe with walker/wheelchair. Consult care management: For discharge planning, SNF placement needed, she will need daily dressing changes with Betadine packing, dry sterile dressing and abx mgmt. Concern over her compliance. Continuation of IV antibiotics (IV Zosyn, vancomycin) until cultures finalized. Reviewed labs: wbc 12.0- 7.9-11.9, esr 16-60 glucose 148, last recorded A1c 05/22/23 was 10.7%, patient reports this is less before she was at 14%. CRP elevated 48.6-49.8 Dressing was changed this morning, betadine gauze packed, dry sterile 4x4, kerlix, joan wrap, ARLINE drain in place. Patient will need 6 weeks IV antibiotics at discharge based on wound culture findings. Recommend PICC line placement Pain control per hospitalist Specimens:: Pending Right fifth metatarsal bone culture Right foot ulcer tissue culture Right fifth metatarsal bone pathology
[2024-07-03 06:54] LABS: Chloride 96 mmol/L (98-107); Sodium 135 mmol/L (136-145)
[2024-07-03 06:55] LABS: Potassium 4.6 mmoL/L (3.5-5.1)
[2024-07-03 06:57] LABS: Blood Urea Nitrogen 15 mg/dl (7-17); Creatinine Clearance Estimated 107 mL/min (50-200); Estimated Glomerular Filt Rate 58 ml/min (>60); GFR (African American) 70 ML/MIN (>60)
[2024-07-03 06:58] LABS: Calcium 8.4 mg/dl (8.4-10.2); Glucose 148 mg/dl (74-100)
[2024-07-03 07:05] LABS: Anion Gap 7.6 mEq/L (5-15); Carbon Dioxide 36 mmol/L (22.0-30.0)
[2024-07-03 07:07] LABS: C-Reactive Protein 49.8 mg/L (0-4)
[2024-07-03 07:30] LABS: Basophils # 0.1 K/mm3 (0-0.2); Basophils % 0.5 % (0.1-2.0); Eosinophils # 0.2 K/mm3 (0.0-0.4); Eosinophils % 1.7 % (0.1-12.0); Hemoglobin 12.7 g/dL (12.2-16.2); Lymphocytes # 1.8 K/mm3 (0.7-4.5); Lymphocytes % 15.2 % (10-50); Mean Corpuscular HGB Conc 31.8 g/dL (31.8-35.4); Mean Corpuscular Hemoglobin 29.9 pg (27.0-31.2); Mean Corpuscular Volume 93.9 fl (81-99); Mean Platelet Volume 6.8 fl (7.4-10.4); Monocytes # 0.6 K/mm3 (0.1-1.0); Monocytes % 5.1 % (1.7-9.3); Neutrophils # 9.2 K/mm3 (1.8-7.8); Neutrophils % 77.6 % (37.0-80.0); Platelet Count 293 K/mm3 (142-424); Red Blood Count 4.26 M/mm3 (4.20-5.40); Red Cell Distribution Width 14.2 % (11.5-17.5); White Blood Count 11.9 K/mm3 (4.8-10.8)
[2024-07-03 07:58] LABS: Erythrocyte Sedimentation Rate 62 mm/hr (0-30)
--- NOTE | 2024-07-03 08:06 | XR_ITS ---
FINAL REPORT CLINICAL HISTORY: s/p right 5th ray amp COMPARISON: 07/01/2024 FINDINGS: RIGHT FOOT 3 views of the right foot were obtained. The fifth digit of ray is surgically absent. Surgical drain is present along the lateral plantar aspect. There is subcutaneous emphysema at the lateral aspect of the foot consistent with recent surgery. There is no acute fracture or dislocation. The remaining visualized joint spaces are normally aligned. IMPRESSION: Postoperative changes as above. Reviewed, Interpreted and Dictated by Agustin Frazier MD Transcribed by Stacy Gray Authenticated and [facility]
[2024-07-03] MEDS: VANCOMYCIN/WATER FOR INJ (PEG) 1.75 GM/350 ML PIGGYBACK IV (08:54)
[2024-07-03] MEDS: LISINOPRIL 2.5MG TABLET 2.5 MG PO (08:55)
[2024-07-03] MEDS: DULOXETINE 30MG CAPSULE.DR 60 MG PO (08:55)
[2024-07-03] MEDS: ISOSORBIDE MONO 30MG TAB.ER.24H 30 MG PO (08:55)
[2024-07-03] MEDS: CARVEDILOL 25MG TABLET 25 MG PO ×2 (08:55→20:28)
[2024-07-03] MEDS: GABAPENTIN 400MG CAPSULE 400 MG PO ×3 (08:55→20:30)
[2024-07-03] MEDS: FENOFIBRATE 54MG TABLET 54 MG PO (08:55)
[2024-07-03] MEDS: CITALOPRAM 40MG TABLET 40 MG PO (08:55)
[2024-07-03] MEDS: METHOCARBAMOL 500MG TABLET 1000 MG PO ×3 (08:55→20:31)
[2024-07-03] MEDS: FUROSEMIDE 80 MG TABLET PO ×2 (08:55→15:24)
--- NOTE | 2024-07-03 09:07 | P.PNANES_ITS ---
[facility] Anesthesia Record Part II Anesthesia Record Part II Discharge Time: 16:45 Destination: [facility] PACU nurse assessment reviewed?: Yes Patient Condition:: Good Anesthesia Complications:: None Swallowing reflex intact?: Yes Airway Patency: Patent Cyanosis?: No Blood Pressure: 160/68 SaO2: 94 Respiratory Rate: 14 Pulse Rate: 85 Temperature: 97.8 F Mental Status: Alert & Oriented Pain level:: 0 Nausea and/or vomitting:: None Intake, IV Amount: 900 Hydration: Adequate
--- NOTE | 2024-07-03 09:24 | SW/DCPLANNER ---
Addendum entered by [facility] 07/16/24 11:44: Currently waiting to hear back from Tamiko regarding discharging w/ IV rather than PICC due to blood cultures. Addendum entered by [facility] 07/16/24 09:24: Per [facility]/ [facility] patient can admit today if medically stable for discharge. I have provided patient's nurse (Imelda) w/ report phone number: [phone]. Addendum entered by [facility] 07/15/24 13:11: Per Tamiko galvez/ Raymond ceja MD prefers to wait till tomorrow for admission due to having surgery less than 24 hours ago. I have updated MD. Addendum entered by [facility] 07/14/24 08:30: I have updated and faxed information to [facility] regarding back to OR per POD later today. Addendum entered by [facility] 07/11/24 14:29: Per insurance precert is still pending at this time. Addendum entered by [facility] 07/11/24 09:02: Per [facility]/ [facility] precert is still pending at this time. Updated patient information has been faxed. Tamiko phone: [phone] fax: [phone] Addendum entered by [facility] 07/08/24 12:32: I spoke w/ Tamiko regarding referral. Precert is still pending at this time. I also updated Tamiko regarding IV antibiotics and Tamiko is aware patient will need a wound vac placed once admitting to their facility. I will continue to follow up w/ Tamiko and patient. Addendum entered by [facility] 07/07/24 09:14: Per [facility] patient insurance is [employer] M[employer] not Medicaid. Insurance was verified this AM and Tamiko stated that a precert will be started. Updated patient information has been faxed. I have update patient regarding situation. Addendum entered by [facility] 07/04/24 13:42: Tamiko galvez/ [facility] stated that she can accept this patient once medically stable for discharge. Tamiko stated that she will start the precert today. Addendum entered by [facility] 07/04/24 09:24: Per [facility] and Delmis galvez/ [facility] they will have an answer today regarding approval/denial. I updated patient this AM and encouraged again to speak w/ family and friends for a plan if these facilities are not able to accept. Patient and I discuss LTC vs home w/ assistance from family and friends. Addendum entered by Danyelle Vallejo 07/03/24 15:05: Tamiko galvez/ [facility] and Delmis galvez/ [facility] are currently reviewing patient information. Original Note: I spoke w/ patient this AM regarding plans once medically stable for discharge. PT/OT evaluated patient and recommended SNF level of care. Patient will need therapy, IV antibiotics, dressing changes and ARLINE drain mgt.. I spoke w/ patient regarding placement. Patient and I did discuss [facility] vs [facility] unit (due to Medicaid). Patient and I also discussed how LTC under Medicaid and payment (monthly income minus $40): patient expressed she is not able to afford this due to bills at home. I did explain to patient that she is not a candidate for home health services due to insurance. I will fax patient information to [facility] and [facility] and follow up once information is reviewed. I encouraged patient to speak w/ family and friends regarding assistance if these facilities were not able to accept. Discharge date is unknown at this time. I will continue to follow up.
--- NOTE | 2024-07-03 09:43 | HMH.OTEV ---
OT Inpatient Evaluation Rehab OT IP Evaluation Start: 07/03/24 09:24 Freq: ONCE Status: Active Protocol: Document 07/03/24 09:30 CHIDINORA (Rec: 07/03/24 09:43 SHARMILA [id number]) Rehab OT IP Assessment Subjective History Patient is a 54-year-old female with past medical history of diabetes mellitus, diabetic neuropathy who presents to the hospital due to right foot pain as well as diabetic foot ulcer. According to patient she follows up with renal case manager at . Patient reports pus discharge from ulcer as well as worsening pain 10/10 intensity constant, sharp. Patient otherwise denied chest pain shortness of breath nausea vomiting diarrhea constipation dysuria fevers and chills. Patient lives in 1 story home with 1-2 PRESTON with roommate. Independent with all ADLs and fx'l mobility prior to surgery . Patient was still driving prior to hospitalization. Subjective I can try to get up. Instructed Patient on proper hand and foot placement to complete bed mobility task supine ->sit @ EOB requiring Min A. Patient demonstrated good dynamic sitting balance at EOB. Instructed Patient on proper hand and foot placement to complete sit->stand transfers with needing Mod A x2. Patient stood <30 secs wiht usage of RW. Assisted back back to supine in bed with needs met at end of session with Mod A x2. Objective Patient Orientation Person,Name,Age,Birthday,Year Right Upper Extremity Gross ROM WFL Left Upper Extremity Gross ROM WFL Bed Mobility bed mobility - supine/sit Assist Level Minimal x 1 (25% assist) Transfer Training Sit/Stand Transfer Assist Level Moderate x 2 (50% assist) Chair Transfer Ability Minimal x 1 (25% assist) Chair Transfer Technique Sit to/from Ambulatory Chair Transfer Assistive Devices Rolling Walker Rehab OT IP prob,goals,plan Problems Date of Evaluation: 07/03/24 OT IP Problems Bed Mobility,Transfers,Balance ,Self care,Safety Rehab Potential Rehab Potential Good Equipment Needs Assistive Devices Rolling / Wheeled Walker Plan OT intervention Plan Bed Mobility,Transfers,Balance ,Self care,Safety,Therapeutic Exercise OT Plan Frequency Daily Duration LOS Discharge Goals Bed Mobility Ability Assistance x1 Sit to Stand Chair Transfer Ability Moderate x 1 (50% assist) Chair Transfer Ability Moderate x 1 (50% assist) Chair Transfer Technique Sit to/from Ambulatory Chair Transfer Assistive Devices Rolling Walker Discharge Plan OT Discharge Plan Recommend placement at this time. Patient will continue to be seen at [facility] for OT IP services. Eval Complexity Eval Charge Codes 59233 - Low Complexity PHYSICIAN CERTIFICATION: I certify the specified therapy services for Seema Elisabethangel Delacruz are required, authorized, and reviewed every 30 days.
--- NOTE | 2024-07-03 09:57 | HMH.PTEV ---
Physical Therapy Evaluation Rehab PT IP Evaluation Start: 07/02/24 16:20 Freq: ONCE Status: Active Protocol: Document 07/03/24 09:43 YEN (Rec: 07/03/24 09:57 YEN [id number]) Subjective/History History History Patient is a 54-year-old female with past medical history of diabetes mellitus, diabetic neuropathy who presents to the hospital due to right foot pain as well as diabetic foot ulcer. Pt is s/p Right fifth ray (metatarsal, toe) amputation, Right foot incision and drainage, Right foot wide excisional debridement, and application of ARLINE drain. Subjective Subjective Pt reports she lives in a single-story home with a roommate. Pt has a ramped entrance. Pt was IND with all mobility and still driving prior to admission. Pt used a cane but does not own a RW or w/c. Pt's roommate unable to stay during the day to assist as she works. Pt verbalized understanding to NWB RLE status. New diagnosis of cancer in past 12 No months? Rehab PT IP Eval Objective Appearance Patient Behavior Appropriate,Cooperative Patient Orientation Person,Situation Difficulty following instructions none Speech Pattern Clear Ambulation Patient Able to Ambulate No Balance Ability to Arise Able, uses arms to help Sitting Balance Steady, safe Standing Balance Unsteady Transfers Bed Transfer Ability Minimal x 1 (25% assist) Sit to Stand Bed Transfer Ability Minimal x 2 (25% assist) Rehab PT IP prob,goals,plan Problems Date of Evaluation: 07/03/24 PT IP Problems Bed Mobility,Transfers,Gait, Balance,Self care,Safety Rehab Potential Rehab Potential Good Equipment Needs Assistive Devices Rolling / Wheeled Walker, Wheelchair Plan PT Intervention Plan Bed Mobility,Transfers,Gait, Balance,Self care,Safety, Therapeutic Exercise Other Intervention Plan 1-2 times PT Plan Frequency Daily Duration LOS Discharge Goals Bed Transfer Ability Contact Guard/Hand Hold Sit to Stand Chair Transfer Ability Minimal x 1 (25% assist) Discharge Plan PT Discharge Plan Initial physical therapy evaluation performed. Patient presents below baseline at this time in functional mobility, transfers, and strength. Pt not safe to return home at this time d/t current level of functional mobility. PT recommending short-term rehabilitation stay upon d/c from [facility]. If pt refusing rehab, pt would have to be w/c level for all mobility and would require a w /c and RW or slide board. Pt would benefit from skilled PT while at [facility] to prevent further functional decline and maximize safety with mobility . Eval Complexity Eval Charge Codes 34161 - High Complexity PHYSICIAN CERTIFICATION: I certify the specified therapy services for Seema Delacruz are required, authorized, and reviewed every 30 days.
[2024-07-03 10:17] LABS: POC Glucose,Bedside 198 (70-110)
[2024-07-03] MEDS: humaLOG 100 UNITS/ML 10ML VIAL (SSI) SQ ×2 (10:20→20:30)
--- NOTE | 2024-07-03 10:39 | XR_ITS ---
FINAL REPORT CLINICAL HISTORY: Confirm PICC line placement COMPARISON: 04/28/2021 FINDINGS: SINGLE-VIEW CHEST The heart size is normal. The mediastinum is normal. PICC line tip terminates in the SVC. The lungs are underinflated with bibasilar atelectasis. There is no pneumothorax. IMPRESSION: PICC line tip in the SVC. Reviewed, Interpreted and Dictated by Agustin Frazier MD Transcribed by Vida Rodriguez Authenticated and [facility]
[2024-07-03] MEDS: MORPHINE 2MG/ML SYRINGE 2 MG IV ×2 (11:27→20:34)
--- NOTE | 2024-07-03 14:21 | PC.NURSE ---
Aox 4, NWB to Right foot, 20G R ac sl, picc placed GIFTY single lumen sl, right foot with joan dressing and sima drain in place, fsbg achs, recommended SNF for iv abx.
--- NOTE | 2024-07-03 14:26 | EXP.PN ---
Subjective *Date: 07/03/24 *Time: 14:28 Interval history: Patient is sitting in bed comfortably this morning without acute concerns or distress. She continues to have right foot pain but reasonably well-controlled with her pain regimen. Open to SNF placement. Denies chest pain, shortness of breath Exam Data for Last 24 hours Vital signs and Labs for Last 24 Hours: Temp Pulse Resp BP Pulse Ox O2 Del Method O2 Flow Rate 97.8 F 78 14 104/54 L 92 L Nasal Cannula 3 07/03/24 08:00 07/03/24 08:00 07/03/24 09:08 07/03/24 08:00 07/03/24 08:00 07/03/24 14:07 07/03/24 14:07 FiO2 32 07/02/24 02:12 Laboratory Results - last 24 hr 07/01/24 18:45: Hepatitis C Antibody Non reactive 07/02/24 16:18: POC Glucose 108 07/02/24 21:21: POC Glucose 127 H 07/03/24 05:58: POC Glucose 141 H 07/03/24 06:28: WBC 11.9 H D, RBC 4.26, Hgb 12.7, Hct 40.0, MCV 93.9, MCH 29.9, MCHC 31.8, RDW 14.2, Plt Count 293, MPV 6.8 L, Neut % (Auto) 77.6, Lymph % (Auto) 15.2, [place] % (Auto) 5.1, Eos % (Auto) 1.7, Baso % (Auto) 0.5, Neut # (Auto) 9.2 H, Lymph # (Auto) 1.8, [place] # (Auto) 0.6, Eos # (Auto) 0.2, Baso # (Auto) 0.1, ESR 62 H, Sodium 135 L, Potassium 4.6, Chloride 96 L, Carbon Dioxide 36 H, Anion Gap 7.6, BUN 15 D, Creatinine 1.00 D, Estimated Creat Clear 107, Estimated GFR 58 L, Est GFR ( Amer) 70 D, Glucose 148 H, Calcium 8.4, C-Reactive Protein 49.8 H 07/03/24 10:10: POC Glucose 198 H I & O for Last 24 hours: Intake & Output 06/30/24 07/01/24 07/02/24 07/03/24 23:59 23:59 23:59 23:59 Intake Total 2261 / 2883 2847 / 2847 Output Total 0 / 320 320 / 1270 1450 / 1450 Balance 0 / 1041 1941 / 1613 1397 / 1397 Weight 110.336 kg 110.336 kg 106 kg Microbiology Reports for the Last 24 Hours: Microbiology 07/02/24 07:20 Foot,Right - Abscess Gram Stain - Final 07/02/24 07:20 Foot,Right - Abscess Wound Culture - Preliminary Gram Positive Cocci 07/01/24 19:25 Blood Blood Culture - Preliminary NO GROWTH AFTER 24 HOURS 07/01/24 18:45 Blood Blood Culture - Preliminary NO GROWTH AFTER 24 HOURS Constitutional Constitutional: no acute distress *Routine HEENT Exam Head: Present normocephalic Eye: Present EOMI and PERRL ENT: Present mucous membranes moist *Routine Neck Exam Neck: Present supple; Absent lymphadenopathy *Routine Respiratory Exam Respiratory: Present CTA bilaterally *Routine Cardiovascular Exam Cardiovascular: Present RRR *Routine Abdominal Exam Abdominal: Present soft and normoactive bowel sounds; Absent tenderness *Routine Extremities Exam Extremities: Absent cyanosis, clubbing or edema Comments: Right foot wrapped with gauze and Jose bandage. *Routine Skin Exam Skin: Present warm; Absent rash *Routine Neurological Exam Neurological: Present alert and oriented X3 Assessment and Plan *Assessment and plan (1) Cellulitis of right foot: Status: Acute Category: Medical Code(s): L03.115 - Cellulitis of right lower limb (2) Osteomyelitis: Status: Acute Qualifiers: Laterality: right Osteomyelitis location: foot Osteomyelitis type: unspecified type Qualified Code(s): M86.9 - Osteomyelitis, unspecified Category: Medical Code(s): M86.9 - Osteomyelitis, unspecified (3) Diabetic foot ulcer: Status: Acute Qualifiers: Diabetic foot ulcer location: other Diabetes mellitus type: type 2 Laterality: right Non-pressure ulcer stage: with necrosis of bone Qualified Code(s): E11.621 - Type 2 diabetes mellitus with foot ulcer; L97.514 - Non-pressure chronic ulcer of other part of right foot with necrosis of bone Category: Medical Code(s): E11.621 - Type 2 diabetes mellitus with foot ulcer; L97.509 - Non-pressure chronic ulcer of other part of unspecified foot with unspecified severity Plan Patient is a 54-year-old female with past medical history of diabetes mellitus, diabetic neuropathy who presents to the hospital due to right foot pain as well as diabetic foot ulcer. 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 Patient reports pus discharge from ulcer as well as worsening pain 10/10 intensity constant, sharp. Patient otherwise denied chest pain shortness of breath nausea vomiting diarrhea constipation dysuria fevers and chills. Assessment and plan R Diabetic foot ulcer R Diabetic foot cellulitis Acute on chronic osteomyelitis of R foot ?Patient states she has had a right foot ulcer for the past few months, getting worse over the past week. ? CT of the foot concerning for acute on chronic osteomyelitis, CRP and ESR also significantly elevated. ? Patient is status post right fifth metatarsal amputation and debridement of midfoot. ? Leukocytosis initially improved yesterday, up trended to 11.9 today from 7.5. Likely reactionary from surgery yesterday. ? Continue IV vancomycin, Zosyn pending cultures. ? Follow-up wound, bone cultures. ? Pain control with Dilaudid, morphine. ? Anticipate at least 6 weeks of IV antibiotics pending cultures. ? PICC line ordered. ? Patient will likely benefit from SNF placement given she is nonweightbearing and not appropriate to go home by herself. Case management assisting. Diabetes mellitus ?LDSSI, ACHS glucose checks Chronic medical conditions Hypertension Hypothyroidism Depression Hyperlipidemia Restless leg syndrome -Resume home medications including coreg, lisinopril, ropinirole, methimazole, Protonix, trazodone, duloxetine. ? Hold home Lasix, Imdur pending improvement in blood pressures
[2024-07-03 16:26] LABS: POC Glucose,Bedside 112 (70-110)
[2024-07-03 20:00] LABS: Vancomycin,Trough 22.6 ug/mL (5.0-10.0)
[2024-07-03 20:02] LABS: POC Glucose,Bedside 355 (70-110)
[2024-07-03] MEDS: PANTOPRAZOLE 40MG TABLET 40 MG PO (20:31)
[2024-07-03] MEDS: ROPINIROLE 1MG TABLET 3 MG PO (20:31)
[2024-07-03] MEDS: TRAZODONE 50MG TABLET 150 MG PO (20:32)
[2024-07-03] MEDS: INSULIN GLARGINE 100 UNITS/ML 3ML FLEXPEN 10 UNIT SQ (20:32)
[2024-07-03] MEDS: POLYETHYLENE GLYCOL 3350 17 GM PACKET PO (21:43)
[2024-07-03] MEDS: PHA TO NURSING INSTRUCTION 1 EACH NOTAPPLIC (21:58)
[2024-07-04] VITALS (7 sets, daily range): BP systolic 98–136; BP diastolic 48–61; PULSE 69–75; RESP 16–19; TEMP 36.4–37.3; O2SAT 92–97; BMI 37.8
[2024-07-04] MEDS: HEPARIN SODIUM 5,000 UNIT/ML VIAL 5000 UNIT SQ ×3 (00:25→16:15)
[2024-07-04] MEDS: HYDROMORPHONE 2MG/ML SYRINGE 1 MG IV ×3 (00:26→09:05)
[2024-07-04 01:02] LABS: Vancomycin,Peak 20.9 ug/ml (11-39)
[2024-07-04] MEDS: VANCOMYCIN/WATER FOR INJ (PEG) 1.25 GM/250 ML PIGGYBACK IV (02:17)
--- NOTE | 2024-07-04 05:24 | PC.NURSE ---
Pt is a&ox4 and has tolerated 3L nasal cannula throughout the shift. Lung sounds clear throughout and bowel sounds hypoactive. Pt requested something to help have a bm and Miralax was given. Dressing over right foot has remained c/d/i. ARLINE drain has had very little drainage. She has complained of pain in her right foot multiple times this shift. She has been medicated per NOV. She is currently asleep with call light within reach.
[2024-07-04] MEDS: PIPERACILLIN/TAZO 3.375 GM in 0.9 % SODIUM CHLORIDE 50 ML IV ×4 (05:50→22:48)
[2024-07-04] MEDS: humaLOG 100 UNITS/ML 10ML VIAL (SSI) SQ ×4 (05:50→20:17)
[2024-07-04 05:51] LABS: POC Glucose,Bedside 184 (70-110)
[2024-07-04] MEDS: MORPHINE 2MG/ML SYRINGE 2 MG IV ×3 (06:06→18:41)
[2024-07-04 06:40] LABS: Basophils % 0.3 % (0.1-2.0); Eosinophils # 0.3 K/mm3 (0.0-0.4); Eosinophils % 2.9 % (0.1-12.0); Hematocrit 34.3 % (37.0-47.0); Hemoglobin 10.6 g/dL (12.2-16.2); Lymphocytes # 1.9 K/mm3 (0.7-4.5); Lymphocytes % 17.2 % (10-50); Mean Corpuscular HGB Conc 30.8 g/dL (31.8-35.4); Mean Corpuscular Hemoglobin 28.9 pg (27.0-31.2); Mean Corpuscular Volume 93.9 fl (81-99); Mean Platelet Volume 6.9 fl (7.4-10.4); Monocytes # 0.6 K/mm3 (0.1-1.0); Monocytes % 5.5 % (1.7-9.3); Neutrophils # 8.4 K/mm3 (1.8-7.8); Neutrophils % 74.1 % (37.0-80.0); Platelet Count 261 K/mm3 (142-424); Red Blood Count 3.66 M/mm3 (4.20-5.40); Red Cell Distribution Width 14.1 % (11.5-17.5); White Blood Count 11.3 K/mm3 (4.8-10.8)
[2024-07-04 06:45] LABS: Chloride 95 mmol/L (98-107); Potassium 3.7 mmoL/L (3.5-5.1); Sodium 132 mmol/L (136-145)
[2024-07-04 06:48] LABS: Blood Urea Nitrogen 24 mg/dl (7-17); Creatinine Clearance Estimated 107 mL/min (50-200); Estimated Glomerular Filt Rate 58 ml/min (>60); GFR (African American) 70 ML/MIN (>60)
[2024-07-04 06:49] LABS: Anion Gap 4.7 mEq/L (5-15); Calcium 8.2 mg/dl (8.4-10.2); Carbon Dioxide 36 mmol/L (22.0-30.0); Glucose 185 mg/dl (74-100)
--- NOTE | 2024-07-04 07:52 | EXP.PHA.CONS ---
Pharmacy Consult Date: 07/04/24 Time: 07:53 Referring provider: DR CASTRO Reason for Consult:: VANCOMYCIN TROUGH LEVEL OBTAINED. Allergies Allergy/AdvReac Type Severity Reaction Status Date / Time ceftriaxone [From ROCEPHIN] Allergy Unknown Verified 01/23/24 14:56 droperidol [From INAPSINE] Allergy Unknown Verified 01/23/24 14:56 ibuprofen [IBUPROFEN] Allergy Unknown Verified 01/23/24 14:56 moxifloxacin [From AVELOX] Allergy Unknown Verified 01/23/24 14:56 Home Medications ?Medication ?Instructions ?Recorded ?Confirmed ?Type flash glucose sensor 05/04/22 06/17/24 History flash glucose scanning reader 08/14/22 06/17/24 History ([facility] Joelle 14 Day [place]) carvedilol 25 mg tablet 25 mg PO BID High blood pressure 02/15/23 07/01/24 Rx 90 days #180 tabs duloxetine 60 mg capsule,delayed 60 mg PO DAILY MOOD #90 caps 02/15/23 07/01/24 Rx release escitalopram oxalate 20 mg tablet 20 mg PO DAILY Depression #90 tabs 02/15/23 07/01/24 Rx fenofibrate 54 mg tablet 54 mg PO DAILY Cholesterol #90 tabs 02/15/23 07/01/24 Rx insulin glargine 100 unit/mL (3 10 unit (0.1 mL) SQ HS Diabetes 02/15/23 07/01/24 Rx mL) subcutaneous pen #15 mL lisinopril 2.5 mg tablet 2.5 mg PO DAILY Hypertension #90 02/15/23 07/01/24 Rx tabs methocarbamol 1,000 mg tablet 1,000 mg PO TID muscle spasms #90 04/16/23 07/01/24 Rx tabs semaglutide 1 mg/dose (4 mg/3 mL) 2 mg SQ WEEKLY Diabetes 04/16/23 07/02/24 History subcutaneous pen injector flash glucose sensor ([facility] #1 ea 06/15/23 06/17/24 Rx Joelle 14 Day Sensor kit) gabapentin 400 mg capsule 400 mg PO TID NEUROPATHY 07/01/24 07/01/24 History furosemide 40 mg tablet 40 mg PO BID 07/02/24 07/02/24 History hydroxyzine pamoate 25 mg capsule 25 mg PO TID PRN Panic Disorder 07/02/24 07/02/24 History insulin NPH-regular 70-30 U-100 60 unit SQ BID 07/02/24 07/02/24 History insulin 100 unit/mL subcutaneous pen (Humulin 70/30 U-100 SaharaikPen) isosorbide dinitrate 30 mg tablet 30 mg PO BID 07/02/24 07/02/24 History methimazole 5 mg tablet 2.5 mg PO DAILY 07/02/24 07/02/24 History pantoprazole 40 mg tablet,delayed 40 mg PO DAILY 07/02/24 07/02/24 History release ropinirole 3 mg tablet 3 mg PO HS 07/02/24 07/02/24 History tizanidine 4 mg tablet 4 mg PO BID PRN Myalgia 07/02/24 07/02/24 History trazodone 150 mg tablet 150 mg PO HS 07/02/24 07/02/24 History New Prescriptions to Start Prescriptions: Height: 1.68 m Weight: 106.8 kg Laboratory Results:: Laboratory Results - last 24 hr 07/03/24 06:28: ESR 62 H 07/03/24 10:10: POC Glucose 198 H 07/03/24 16:19: POC Glucose 112 H 07/03/24 19:11: Vancomycin Trough 22.6 H 07/03/24 19:54: POC Glucose 355 H* 07/04/24 00:22: Vancomycin Peak 20.9 07/04/24 05:44: POC Glucose 184 H 07/04/24 06:30: WBC 11.3 H, RBC 3.66 L, Hgb 10.6 L, Hct 34.3 L, MCV 93.9, MCH 28.9, MCHC 30.8 L, RDW 14.1, Plt Count 261, MPV 6.9 L, Neut % (Auto) 74.1, Lymph % (Auto) 17.2, [place] % (Auto) 5.5, Eos % (Auto) 2.9, Baso % (Auto) 0.3, Neut # (Auto) 8.4 H, Lymph # (Auto) 1.9, [place] # (Auto) 0.6, Eos # (Auto) 0.3, Baso # (Auto) 0.0, Sodium 132 L, Potassium 3.7, Chloride 95 L, Carbon Dioxide 36 H, Anion Gap 4.7 L, BUN 24 H D, Creatinine 1.00, Estimated Creat Clear 107, Estimated GFR 58 L, Est GFR ( Amer) 70, Glucose 185 H, Calcium 8.2 L Medical History: Medical History (Updated 07/03/24 @ 06:44 by Aubree Whitten APRN) Presence of intrathecal pump Excess skin of arm Encounter for wound care 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 Type 2 diabetes mellitus Diabetic foot Assessment and Plan Assessment and plan all Dx Assessment and Plan for all problems:: Pharmacokinetic dosing service Weight: 106.8 Kilograms Vancomycin single level analysis: Current dose being given:1750 mg Current dosing interval: 12 hrs Current infusion time (hrs): 2 Single level Trough Data: Trough level obtained: 22.6 mcg/ml Timing of trough - # of hrs before next dose: 0.5 Hrs Desired peak: 35 mcg/ml Desired trough: 12.5 mcg/ml Diagnosis: OSTEOMYELITIS Estimated PK Parameters: New rate constant (juventino): 0.062 hr-1 Half-life: 11.18 Hours Vd from levels: 74.76 Liters (0.7 L/kg) CLvanco=?? 4.635 L/hr Estimated New Dose and Interval Recommended dose: 1904.1 mg Recommended interval: 18.6 Hrs Recommendations: Give Vancomycin 1250 mg q 12 hrs. Infuse over 2 hrs Expected Cpeak: 30.0 mcg/mL Expected Ctrough: 16.1 mcg/mL AUC 0-24 /TABITHA Data: TBAITHA 0.5 mcg/mL:?? AUC/TABITHA:? 1078.7 TABITHA 1.0 mcg/mL:?? AUC/TABITHA:? 539.4 Thank you for the consult
--- NOTE | 2024-07-04 08:32 | EXP.PHA.PN ---
Subjective *Date: 07/04/24 *Time: 08:32 Medical Exam Vital signs and Labs for Last 24 Hours: Vital Signs Temp Pulse Resp BP Pulse Ox O2 Del Method O2 Flow Rate 07/04/24 06:36 Nasal Cannula 3 07/04/24 05:00 Nasal Cannula 3 07/04/24 04:00 98.4 F 75 16 109/57 L 92 L Nasal Cannula 4 07/04/24 03:00 Nasal Cannula 3 07/04/24 01:00 Nasal Cannula 3 07/04/24 00:00 97.8 F 69 18 99/48 L 97 Nasal Cannula 3 07/03/24 23:00 Nasal Cannula 3 07/03/24 21:00 Nasal Cannula 3 07/03/24 20:00 Room Air 3 07/03/24 20:00 99.4 F 102 H 18 104/61 L 90 L Nasal Cannula 3 07/03/24 18:05 Nasal Cannula 3 07/03/24 16:06 Nasal Cannula 3 07/03/24 16:00 98 F 75 16 130/62 96 07/03/24 14:07 Nasal Cannula 3 07/03/24 12:10 Room Air 07/03/24 12:00 98 F 74 16 106/64 L 98 07/03/24 09:59 Nasal Cannula 3 07/03/24 09:08 14 Intake and Output 07/03/24 07/04/24 07/04/24 23:59 07:59 15:59 Intake Total 350 / 350 Output Total 0 / 1450 0 / 0 Balance 0 / 1747 350 / 350 Intake: Intake, Oral Amount 350 / 350 Output: Output, Urine Amount 0 / 1450 0 / 0 Other: Number of Unmeasured Voids 1 1 Weight 106.8 kg Patient Weight 07/04/24 23:59 Weight 106.8 kg Laboratory Results - last 24 hr 07/03/24 10:10: POC Glucose 198 H 07/03/24 16:19: POC Glucose 112 H 07/03/24 19:11: Vancomycin Trough 22.6 H 07/03/24 19:54: POC Glucose 355 H* 07/04/24 00:22: Vancomycin Peak 20.9 07/04/24 05:44: POC Glucose 184 H 07/04/24 06:30: WBC 11.3 H, RBC 3.66 L, Hgb 10.6 L, Hct 34.3 L, MCV 93.9, MCH 28.9, MCHC 30.8 L, RDW 14.1, Plt Count 261, MPV 6.9 L, Neut % (Auto) 74.1, Lymph % (Auto) 17.2, [place] % (Auto) 5.5, Eos % (Auto) 2.9, Baso % (Auto) 0.3, Neut # (Auto) 8.4 H, Lymph # (Auto) 1.9, [place] # (Auto) 0.6, Eos # (Auto) 0.3, Baso # (Auto) 0.0, Sodium 132 L, Potassium 3.7, Chloride 95 L, Carbon Dioxide 36 H, Anion Gap 4.7 L, BUN 24 H D, Creatinine 1.00, Estimated Creat Clear 107, Estimated GFR 58 L, Est GFR ( Amer) 70, Glucose 185 H, Calcium 8.2 L I & O for Labs for Last 24 Hours: Intake & Output 07/01/24 07/02/24 07/03/24 07/04/24 23:59 23:59 23:59 23:59 Intake Total 2261 / 2883 2847 / 3197 350 / 350 Output Total 0 / 320 320 / 1270 1450 / 1450 0 / 0 Balance 0 / 1041 1941 / 1613 1397 / 1747 350 / 350 Weight 110.336 kg 110.336 kg 106 kg 106.8 kg Microbiology Reports for the Last 24 Hours: Microbiology 07/02/24 07:20 Foot,Right - Abscess Gram Stain - Final 07/02/24 07:20 Foot,Right - Abscess Wound Culture - Final Strep agalactiae - (group b) 07/02/24 15:00 Foot,Right Surgical Biopsy Culture - Preliminary NO GROWTH AFTER 24 HOURS 07/01/24 19:25 Blood Blood Culture - Preliminary NO GROWTH AFTER 48 HOURS 07/01/24 18:45 Blood Blood Culture - Preliminary NO GROWTH AFTER 48 HOURS The patient's infection will respond to the chosen ABx?: Yes (BLOOD CX = NO GROWTH 48 HR, BONE CX PENDING, RFOOT WOUND CX NO GROWTH 24 HR) Is the patient receiving the right drug, dose, and route?: Yes Could a more targeted ABx be ordered?: No
[2024-07-04] MEDS: FENOFIBRATE 54MG TABLET 54 MG PO (09:05)
[2024-07-04] MEDS: METHOCARBAMOL 500MG TABLET 1000 MG PO ×3 (09:05→20:17)
[2024-07-04] MEDS: CITALOPRAM 40MG TABLET 40 MG PO (09:05)
[2024-07-04] MEDS: DULOXETINE 30MG CAPSULE.DR 60 MG PO (09:05)
[2024-07-04] MEDS: CARVEDILOL 25MG TABLET 25 MG PO ×2 (09:05→20:16)
[2024-07-04] MEDS: FUROSEMIDE 80 MG TABLET PO ×2 (09:05→16:15)
[2024-07-04] MEDS: GABAPENTIN 400MG CAPSULE 400 MG PO ×3 (09:05→20:16)
[2024-07-04 10:04] LABS: POC Glucose,Bedside 199 (70-110)
[2024-07-04] MEDS: POLYETHYLENE GLYCOL 3350 17 GM PACKET PO ×2 (10:46→23:30)
[2024-07-04] MEDS: METHIMAZOLE 10 MG 0.25 EACH PO (10:46)
[2024-07-04] MEDS: HYDROCODONE/APAP 5/325 MG TABLET 1 TAB PO ×3 (10:52→23:27)
--- NOTE | 2024-07-04 13:04 | P.PN_ITS ---
Subjective *Date: 07/04/24 *Time: 13:08 Interval history: Patient states she feels well today, however does endorse right foot pain still. Eager to be discharged pending wound cultures. Exam Data for Last 24 hours Vital signs and Labs for Last 24 Hours: Temp Pulse Resp BP Pulse Ox O2 Del Method O2 Flow Rate 97.8 F 75 19 113/59 L 95 Nasal Cannula 2 07/04/24 12:00 07/04/24 12:00 07/04/24 12:00 07/04/24 12:00 07/04/24 12:00 07/04/24 12:00 07/04/24 12:00 FiO2 32 07/02/24 02:12 Laboratory Results - last 24 hr 07/03/24 16:19: POC Glucose 112 H 07/03/24 19:11: Vancomycin Trough 22.6 H 07/03/24 19:54: POC Glucose 355 H* 07/04/24 00:22: Vancomycin Peak 20.9 07/04/24 05:44: POC Glucose 184 H 07/04/24 06:30: WBC 11.3 H, RBC 3.66 L, Hgb 10.6 L, Hct 34.3 L, MCV 93.9, MCH 28.9, MCHC 30.8 L, RDW 14.1, Plt Count 261, MPV 6.9 L, Neut % (Auto) 74.1, Lymph % (Auto) 17.2, [place] % (Auto) 5.5, Eos % (Auto) 2.9, Baso % (Auto) 0.3, Neut # (Auto) 8.4 H, Lymph # (Auto) 1.9, [place]y # (Auto) 0.6, Eos # (Auto) 0.3, Baso # (Auto) 0.0, Sodium 132 L, Potassium 3.7, Chloride 95 L, Carbon Dioxide 36 H, Anion Gap 4.7 L, BUN 24 H D, Creatinine 1.00, Estimated Creat Clear 107, Estimated GFR 58 L, Est GFR ( Amer) 70, Glucose 185 H, Calcium 8.2 L 07/04/24 09:57: POC Glucose 199 H I & O for Last 24 hours: Intake & Output 07/01/24 07/02/24 07/03/24 07/04/24 23:59 23:59 23:59 23:59 Intake Total 2261 / 2883 2847 / 3197 600 / 600 Output Total 0 / 320 320 / 1270 1450 / 1450 0 / 0 Balance 0 / 1041 1941 / 1613 1397 / 1747 600 / 600 Weight 110.336 kg 110.336 kg 106 kg 106.8 kg Microbiology Reports for the Last 24 Hours: Microbiology 07/02/24 07:20 Foot,Right - Abscess Gram Stain - Final 07/02/24 07:20 Foot,Right - Abscess Wound Culture - Final Strep agalactiae - (group b) 07/02/24 15:00 Foot,Right Surgical Biopsy Culture - Preliminary NO GROWTH AFTER 24 HOURS 07/01/24 19:25 Blood Blood Culture - Preliminary NO GROWTH AFTER 48 HOURS 07/01/24 18:45 Blood Blood Culture - Preliminary NO GROWTH AFTER 48 HOURS Constitutional Constitutional: no acute distress *Routine HEENT Exam Head: Present normocephalic Eye: Present EOMI and PERRL ENT: Present mucous membranes moist *Routine Neck Exam Neck: Present supple; Absent lymphadenopathy *Routine Respiratory Exam Respiratory: Present CTA bilaterally *Routine Cardiovascular Exam Cardiovascular: Present RRR *Routine Abdominal Exam Abdominal: Present soft and normoactive bowel sounds; Absent tenderness *Routine Extremities Exam Extremities: Absent cyanosis, clubbing or edema Comments: Right foot wrapped with gauze and Jose bandage. ARLINE drain in place with minimal bloody discharge. *Routine Skin Exam Skin: Present warm; Absent rash *Routine Neurological Exam Neurological: Present alert and oriented X3 Assessment and Plan *Assessment and plan (1) Cellulitis of right foot: Status: Acute Category: Medical Code(s): L03.115 - Cellulitis of right lower limb (2) Osteomyelitis: Status: Acute Qualifiers: Laterality: right Osteomyelitis location: foot Osteomyelitis type: unspecified type Qualified Code(s): M86.9 - Osteomyelitis, unspecified Category: Medical Code(s): M86.9 - Osteomyelitis, unspecified (3) Diabetic foot ulcer: Status: Acute Qualifiers: Diabetes mellitus type: type 2 Diabetic foot ulcer location: other Laterality: right Non-pressure ulcer stage: with necrosis of bone Qualified Code(s): E11.621 - Type 2 diabetes mellitus with foot ulcer; L97.514 - Non- pressure chronic ulcer of other part of right foot with necrosis of bone Category: Medical Code(s): E11.621 - Type 2 diabetes mellitus with foot ulcer; L97.509 - Non-pressure chronic ulcer of other part of unspecified foot with unspecified severity Plan Patient is a 54-year-old female with past medical history of diabetes mellitus, diabetic neuropathy who presents to the hospital due to right foot pain as well as diabetic foot ulcer. According to patient she follows up with [facility] at . Patient reports pus discharge from ulcer as well as worsening pain 10/10 intensity constant, sharp. Patient otherwise denied chest pain shortness of breath nausea vomiting diarrhea constipation dysuria fevers and chills. Assessment and plan R Diabetic foot ulcer R Diabetic foot cellulitis Acute on chronic osteomyelitis of R foot ? Patient states she has had a right foot ulcer for the past few months, getting worse over the past week. ? Patient feels well today, but does endorse right foot pain. Eager to be discharged pending culture results. ? CT of the foot concerning for acute on chronic osteomyelitis, CRP and ESR also significantly elevated. ? Patient is status post right fifth metatarsal amputation, incision and drainage, and debridement of midfoot. ? Leukocytosis improved to 11.3 today. ? Continue IV vancomycin, Zosyn pending cultures. ? Follow-up wound, bone cultures. ? Pain control with [place], and morphine for breakthrough pain. ? Anticipate at least 6 weeks of IV antibiotics pending cultures. ? PICC line ordered. ? Patient will likely benefit from SNF placement given she is nonweightbearing and not appropriate to go home by herself. Case management assisting. Diabetes mellitus ?LDSSI, ACHS glucose checks Chronic medical conditions Hypertension Hypothyroidism Depression Hyperlipidemia Restless leg syndrome -Resume home medications including coreg, lisinopril, ropinirole, methimazole, Protonix, trazodone, duloxetine. ? Hold home Lasix, Imdur pending improvement in blood pressures
[2024-07-04] MEDS: HYDROCODONE 10MG/APAP 325MG TAB 1 TAB PO ×2 (13:44→20:21)
[2024-07-04] MEDS: VANCOMYCIN HCL 1,250 MG in 0.9 % SODIUM CHLORIDE 250 ML 125 MG IV (13:45)
--- NOTE | 2024-07-04 14:21 | PC.NURSE ---
Dressing changed to right lower foot with gauze packed, betadine soaked gauze and joan wrapped.
--- NOTE | 2024-07-04 16:33 | PC.NURSE ---
Pt. is aox 4, up with assist to bsc times one, NWB to right lower ext, LISY picc SL, 20 G L ac SL, 02-3L nc sat's in the 90's, fsbg achs, cpap at hs, awaiting SNF for 4-6 of abx.
[2024-07-04] MEDS: INSULIN GLARGINE 100 UNITS/ML 3ML FLEXPEN 10 UNIT SQ (20:17)
[2024-07-04] MEDS: ROPINIROLE 1MG TABLET 3 MG PO (20:18)
[2024-07-04] MEDS: TRAZODONE 50MG TABLET 150 MG PO (20:18)
[2024-07-04] MEDS: PANTOPRAZOLE 40MG TABLET 40 MG PO (20:18)
[2024-07-04 20:25] LABS: POC Glucose,Bedside 182 (70-110)
[2024-07-05] MEDS: HEPARIN SODIUM 5,000 UNIT/ML VIAL 5000 UNIT SQ ×3 (00:53→15:46)
[2024-07-05] MEDS: MORPHINE 2MG/ML SYRINGE 2 MG IV ×4 (00:54→23:38)
[2024-07-05 02:03] LABS: Vancomycin,Trough 20.5 ug/mL (5.0-10.0)
[2024-07-05] MEDS: HYDROCODONE 10MG/APAP 325MG TAB 1 TAB PO ×2 (02:18→11:23)
[2024-07-05] MEDS: VANCOMYCIN HCL 1,250 MG in 0.9 % SODIUM CHLORIDE 250 ML 125 MG IV (02:35)
[2024-07-05 03:40] VITALS: BP 114/63; PULSE 71; RESP 16; TEMP 37; O2SAT 96
[2024-07-05 04:00] VITALS: BMI 39.5
[2024-07-05] MEDS: HYDROCODONE/APAP 5/325 MG TABLET 1 TAB PO (04:52)
--- NOTE | 2024-07-05 05:23 | PC.NURSE ---
Pt is a&ox4 and has remained on 3L nasal cannula throughout the night. Lung sounds clear and bowel sounds active. Dressing to right lower extremity has remained c/d/i. Roger drain has had no output this shift. Pt has complained of pain to the right foot multiple times this shift and was medicated per NOV. She is currently up to the chair with call light within reach.
[2024-07-05 05:53] LABS: POC Glucose,Bedside 204 (70-110)
[2024-07-05] MEDS: humaLOG 100 UNITS/ML 10ML VIAL (SSI) SQ ×2 (06:08→15:49)
[2024-07-05] MEDS: PIPERACILLIN/TAZO 3.375 GM in 0.9 % SODIUM CHLORIDE 50 ML IV ×4 (06:08→23:35)
[2024-07-05 06:52] LABS: Basophils # 0.1 K/mm3 (0-0.2); Basophils % 0.7 % (0.1-2.0); Eosinophils # 0.3 K/mm3 (0.0-0.4); Eosinophils % 4.1 % (0.1-12.0); Hematocrit 33.7 % (37.0-47.0); Hemoglobin 11.1 g/dL (12.2-16.2); Lymphocytes # 2.2 K/mm3 (0.7-4.5); Lymphocytes % 27.7 % (10-50); Mean Corpuscular HGB Conc 32.8 g/dL (31.8-35.4); Mean Corpuscular Hemoglobin 30.3 pg (27.0-31.2); Mean Corpuscular Volume 92.4 fl (81-99); Mean Platelet Volume 7.7 fl (7.4-10.4); Monocytes # 0.6 K/mm3 (0.1-1.0); Monocytes % 8.1 % (1.7-9.3); Neutrophils # 4.6 K/mm3 (1.8-7.8); Neutrophils % 59.3 % (37.0-80.0); Platelet Count 244 K/mm3 (142-424); Red Blood Count 3.65 M/mm3 (4.20-5.40); White Blood Count 7.8 K/mm3 (4.8-10.8)
[2024-07-05 06:53] LABS: Chloride 95 mmol/L (98-107); Sodium 132 mmol/L (136-145)
[2024-07-05 06:56] LABS: Blood Urea Nitrogen 23 mg/dl (7-17); Creatinine Clearance Estimated 112 mL/min (50-200); Estimated Glomerular Filt Rate 58 ml/min (>60); GFR (African American) 70 ML/MIN (>60)
[2024-07-05 06:57] LABS: Calcium 8.4 mg/dl (8.4-10.2); Carbon Dioxide 35 mmol/L (22.0-30.0); Glucose 191 mg/dl (74-100)
[2024-07-05 08:00] VITALS: BP 125/62; PULSE 68; RESP 18; O2SAT 97
[2024-07-05] MEDS: ISOSORBIDE MONO 30MG TAB.ER.24H 30 MG PO (08:40)
[2024-07-05] MEDS: FENOFIBRATE 54MG TABLET 54 MG PO (08:40)
[2024-07-05] MEDS: LISINOPRIL 2.5MG TABLET 2.5 MG PO (08:41)
[2024-07-05] MEDS: GABAPENTIN 400MG CAPSULE 400 MG PO ×3 (08:41→21:28)
[2024-07-05] MEDS: FUROSEMIDE 80 MG TABLET PO ×2 (08:41→15:43)
[2024-07-05] MEDS: CITALOPRAM 40MG TABLET 40 MG PO (08:41)
[2024-07-05] MEDS: CARVEDILOL 25MG TABLET 25 MG PO ×2 (08:42→21:28)
[2024-07-05] MEDS: DULOXETINE 30MG CAPSULE.DR 60 MG PO (08:42)
[2024-07-05] MEDS: METHOCARBAMOL 500MG TABLET 1000 MG PO ×3 (08:42→21:28)
[2024-07-05] MEDS: METHIMAZOLE 10 MG 0.25 EACH PO (08:43)
[2024-07-05 11:37] LABS: POC Glucose,Bedside 86 (70-110)
--- NOTE | 2024-07-05 11:48 | EXP.PN ---
Subjective *Date: 07/05/24 *Time: 11:48 Exam Data for Last 24 hours Vital signs and Labs for Last 24 Hours: Temp Pulse Resp BP Pulse Ox O2 Del Method O2 Flow Rate 98.6 F 68 18 125/62 97 Nasal Cannula 3 07/05/24 03:40 07/05/24 08:00 07/05/24 08:00 07/05/24 08:00 07/05/24 08:00 07/05/24 08:00 07/05/24 08:00 FiO2 32 07/02/24 02:12 Laboratory Results - last 24 hr 07/04/24 19:59: POC Glucose 182 H 07/05/24 01:20: Vancomycin Trough 20.5 H 07/05/24 05:38: WBC 7.8 D, RBC 3.65 L, Hgb 11.1 L, Hct 33.7 L, MCV 92.4, MCH 30.3, MCHC 32.8, RDW 14.0, Plt Count 244, MPV 7.7, Neut % (Auto) 59.3, Lymph % (Auto) 27.7, Mcdonald % (Auto) 8.1, Eos % (Auto) 4.1, Baso % (Auto) 0.7, Neut # (Auto) 4.6, Lymph # (Auto) 2.2, Mcdonald # (Auto) 0.6, Eos # (Auto) 0.3, Baso # (Auto) 0.1 07/05/24 05:46: POC Glucose 204 H 07/05/24 11:20: POC Glucose 86 07/05/24 : Sodium 132 L, Potassium 4.0, Chloride 95 L, Carbon Dioxide 35 H, Anion Gap 6.0, BUN 23 H, Creatinine 1.00, Estimated Creat Clear 112, Estimated GFR 58 L, Est GFR ( Amer) 70, Glucose 191 H, Calcium 8.4 I & O for Last 24 hours: Intake & Output 07/02/24 07/03/24 07/04/24 07/05/24 23:59 23:59 23:59 23:59 Intake Total 2261 / 2883 2847 / 3197 1330 / 1330 770 / 770 Output Total 320 / 1270 1450 / 1450 400 / 450 50 / 50 Balance 1941 / 1613 1397 / 1747 930 / 880 720 / 720 Weight 110.336 kg 106 kg 106.8 kg 111.584 kg Microbiology Reports for the Last 24 Hours: Microbiology 07/02/24 15:00 Foot,Right Gram Stain - Final 07/02/24 15:00 Foot,Right Surgical Biopsy Culture - Preliminary Gram Positive Cocci Constitutional Constitutional: no acute distress *Routine HEENT Exam Head: Present normocephalic Eye: Present EOMI and PERRL ENT: Present mucous membranes moist *Routine Neck Exam Neck: Present supple; Absent lymphadenopathy *Routine Respiratory Exam Respiratory: Present CTA bilaterally *Routine Cardiovascular Exam Cardiovascular: Present RRR *Routine Abdominal Exam Abdominal: Present soft and normoactive bowel sounds; Absent tenderness *Routine Extremities Exam Extremities: Absent cyanosis, clubbing or edema Comments: Right foot wrapped with gauze and Jose bandage. ARLINE drain in place with minimal bloody discharge. *Routine Skin Exam Skin: Present warm; Absent rash *Routine Neurological Exam Neurological: Present alert and oriented X3 Assessment and Plan *Assessment and plan (1) Cellulitis of right foot: Status: Acute Category: Medical Code(s): L03.115 - Cellulitis of right lower limb (2) Osteomyelitis: Status: Acute Qualifiers: Laterality: right Osteomyelitis location: foot Osteomyelitis type: unspecified type Qualified Code(s): M86.9 - Osteomyelitis, unspecified Category: Medical Code(s): M86.9 - Osteomyelitis, unspecified (3) Diabetic foot ulcer: Status: Acute Qualifiers: Diabetic foot ulcer location: other Diabetes mellitus type: type 2 Laterality: right Non-pressure ulcer stage: with necrosis of bone Qualified Code(s): E11.621 - Type 2 diabetes mellitus with foot ulcer; L97.514 - Non-pressure chronic ulcer of other part of right foot with necrosis of bone Category: Medical Code(s): E11.621 - Type 2 diabetes mellitus with foot ulcer; L97.509 - Non-pressure chronic ulcer of other part of unspecified foot with unspecified severity Plan Patient is a 54-year-old female with past medical history of diabetes mellitus, diabetic neuropathy who presents to the hospital due to right foot pain as well as diabetic foot ulcer. According to patient she follows up with [facility] [employer] at . Patient reports pus discharge from ulcer as well as worsening pain 10/10 intensity constant, sharp. Patient otherwise denied chest pain shortness of breath nausea vomiting diarrhea constipation dysuria fevers and chills. Assessment and plan R Diabetic foot ulcer R Diabetic foot cellulitis Acute on chronic osteomyelitis of R foot ? Patient states she has had a right foot ulcer for the past few months, getting worse over the past week prior to admission. ? CT of the foot revealed acute on chronic osteomyelitis, CRP and ESR also significantly elevated. ? Patient is status post right fifth metatarsal amputation, incision and drainage, and debridement of midfoot. ? Patient feels well today, but does still endorses right foot pain that is mildly better today. Eager to be discharged pending culture results. ? Leukocytosis improved to from 11.3-7.8 today.. ? Continue IV vancomycin, Zosyn pending cultures. ? Follow-up wound, bone cultures. ? Switched to Dilaudid for moderate/severe pain, morphine for breakthrough pain. ? Anticipate 6 weeks of IV antibiotics pending cultures. ? Wound cultures reveal gram-positive cocci, strep Agalactiae. Bone cultures pending as this is a send out lab. ? PICC line placed. ? Patient has bed offer [facility] swing bed. Just waiting for final bone cultures. Diabetes mellitus ?LDSSI, ACHS glucose checks Chronic medical conditions Hypertension Hypothyroidism Depression Hyperlipidemia Restless leg syndrome -Resume home medications including coreg, lisinopril, ropinirole, methimazole, Protonix, trazodone, duloxetine. ? Hold home Lasix, Imdur pending improvement in blood pressures
[2024-07-05 12:00] VITALS: BP 121/67; PULSE 72; RESP 18; TEMP 36.3; O2SAT 93
--- NOTE | 2024-07-05 12:53 | PC.NURSE ---
to rad by bed at this time
[2024-07-05] MEDS: HYDROMORPHONE HCL 2 MG TABLET PO ×2 (13:17→21:28)
[2024-07-05] MEDS: PHA TO NURSING INSTRUCTION 1 EACH NOTAPPLIC (13:17)
[2024-07-05 14:02] LABS: Vancomycin,Trough 19.7 ug/mL (5.0-10.0)
--- NOTE | 2024-07-05 14:12 | P.CONPHA_ITS ---
Pharmacy Consult Date: 07/05/24 Time: 14:12 Referring provider: DR. CASTRO Reason for Consult:: VANCOMYCIN LEVEL Allergies Allergy/AdvReac Type Severity Reaction Status Date / Time ceftriaxone [From ROCEPHIN] Allergy Unknown Verified 01/23/24 14:56 droperidol [From INAPSINE] Allergy Unknown Verified 01/23/24 14:56 ibuprofen [IBUPROFEN] Allergy Unknown Verified 01/23/24 14:56 moxifloxacin [From AVELOX] Allergy Unknown Verified 01/23/24 14:56 Home Medications ?Medication ?Instructions ?Recorded ?Confirmed ?Type flash glucose sensor 05/04/22 06/17/24 History flash glucose scanning reader 08/14/22 06/17/24 History ([employer] Joelle 14 Day [place]) carvedilol 25 mg tablet 25 mg PO BID High blood pressure 02/15/23 07/01/24 Rx 90 days #180 tabs duloxetine 60 mg capsule,delayed 60 mg PO DAILY MOOD #90 caps 02/15/23 07/01/24 Rx release escitalopram oxalate 20 mg tablet 20 mg PO DAILY Depression #90 tabs 02/15/23 07/01/24 Rx fenofibrate 54 mg tablet 54 mg PO DAILY Cholesterol #90 tabs 02/15/23 07/01/24 Rx insulin glargine 100 unit/mL (3 10 unit (0.1 mL) SQ HS Diabetes 02/15/23 07/01/24 Rx mL) subcutaneous pen #15 mL lisinopril 2.5 mg tablet 2.5 mg PO DAILY Hypertension #90 02/15/23 07/01/24 Rx tabs methocarbamol 1,000 mg tablet 1,000 mg PO TID muscle spasms #90 04/16/23 07/01/24 Rx tabs semaglutide 1 mg/dose (4 mg/3 mL) 2 mg SQ WEEKLY Diabetes 04/16/23 07/02/24 History subcutaneous pen injector flash glucose sensor ([employer] #1 ea 06/15/23 06/17/24 Rx Joelle 14 Day Sensor kit) gabapentin 400 mg capsule 400 mg PO TID NEUROPATHY 07/01/24 07/01/24 History furosemide 40 mg tablet 40 mg PO BID 07/02/24 07/02/24 History hydroxyzine pamoate 25 mg capsule 25 mg PO TID PRN Panic Disorder 07/02/2407/02 History insulin NPH-regular 70-30 U-100 60 unit SQ BID 07/02/24 07/02/24 History insulin 100 unit/mL subcutaneous pen (Humulin 70/30 U-100 Tonya) isosorbide dinitrate 30 mg tablet 30 mg PO BID 07/02/24 07/02/24 History methimazole 5 mg tablet 2.5 mg PO DAILY 07/02/24 07/02/24 History pantoprazole 40 mg tablet,delayed 40 mg PO DAILY 07/02/24 07/02/24 History release ropinirole 3 mg tablet 3 mg PO HS 07/02/24 07/02/24 History tizanidine 4 mg tablet 4 mg PO BID PRN Myalgia 07/02/24 07/02/24 History trazodone 150 mg tablet 150 mg PO HS 07/02/24 07/02/24 History New Prescriptions to Start Prescriptions: Height: 1.68 m Weight: 111.584 kg Laboratory Results:: Laboratory Results - last 24 hr 07/04/24 19:59: POC Glucose 182 H 07/05/24 01:20: Vancomycin Trough 20.5 H 07/05/24 05:38: WBC 7.8 D, RBC 3.65 L, Hgb 11.1 L, Hct 33.7 L, MCV 92.4, MCH 30.3, MCHC 32.8, RDW 14.0, Plt Count 244, MPV 7.7, Neut % (Auto) 59.3, Lymph % (Auto) 27.7, [place] % (Auto) 8.1, Eos % (Auto) 4.1, Baso % (Auto) 0.7, Neut # (Auto) 4.6, Lymph # (Auto) 2.2, [place] # (Auto) 0.6, Eos # (Auto) 0.3, Baso # (Auto) 0.1 07/05/24 05:46: POC Glucose 204 H 07/05/24 11:20: POC Glucose 86 07/05/24 13:12: Vancomycin Trough 19.7 H 07/05/24 : Sodium 132 L, Potassium 4.0, Chloride 95 L, Carbon Dioxide 35 H, Anion Gap 6.0, BUN 23 H, Creatinine 1.00, Estimated Creat Clear 112, Estimated GFR 58 L, Est GFR ( Amer) 70, Glucose 191 H, Calcium 8.4 Medical History: Medical History (Updated 07/03/24 @ 06:44 by Aubree Whitten APRN) Presence of intrathecal pump Excess skin of arm Encounter for wound care 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 HOLDING DOSE UNTIL 2300 TONIGHT. WILL GIVE VANCOMCYIN 2 GM X1 DOSE AT 2300 THEN SWITCH TO VANCOMYCIN 1750 MG Q18H THEREAFTER.
[2024-07-05 16:00] VITALS: BP 107/44; PULSE 72; RESP 18; TEMP 36.9; O2SAT 99
[2024-07-05 16:10] LABS: POC Glucose,Bedside 196 (70-110)
--- NOTE | 2024-07-05 16:18 | PC.NURSE ---
AOX4, 3LNC FOR O2 SUPPORT THIS SHIFT. MEDICATED FOR PAIN AT FREQUENT INTERVALS PER MAR. C/O NAUSEA ONCE AND WAS MEDICATED WITH PRN ZOFRAN. TOLERATING DIET WELL. SAT UP TO CHAIR FOR A COUPLE OF HOURS AND FAMILY PUSHED HER AROUND IN WHEELCHAIR AROUND UNIT. 1 BM NOTED THIS SHIFT.
[2024-07-05 20:00] VITALS: BP 90/52; PULSE 86; RESP 20; TEMP 36.9; O2SAT 92; O2SAT 95
[2024-07-05] MEDS: INSULIN GLARGINE 100 UNITS/ML 3ML FLEXPEN 10 UNIT SQ (21:26)
[2024-07-05] MEDS: TRAZODONE 50MG TABLET 150 MG PO (21:27)
[2024-07-05] MEDS: ROPINIROLE 1MG TABLET 3 MG PO (21:28)
[2024-07-05] MEDS: PANTOPRAZOLE 40MG TABLET 40 MG PO (21:28)
[2024-07-05 22:17] LABS: POC Glucose,Bedside 122 (70-110)
[2024-07-06] VITALS: BP 103/53; PULSE 73; RESP 18; TEMP 37.1; O2SAT 95; O2SAT 96
[2024-07-06] MEDS: VANCOMYCIN HCL 2,000 MG in 0.9 % SODIUM CHLORIDE 250 ML 125 MG IV (00:05)
[2024-07-06] MEDS: HEPARIN SODIUM 5,000 UNIT/ML VIAL 5000 UNIT SQ ×3 (00:53→16:05)
[2024-07-06] MEDS: HYDROMORPHONE HCL 2 MG TABLET 3 MG PO ×3 (03:06→16:13)
[2024-07-06 04:00] VITALS: BP 132/62; PULSE 80; RESP 20; TEMP 36.9; O2SAT 98; BMI 39.2
[2024-07-06] MEDS: PIPERACILLIN/TAZO 3.375 GM in 0.9 % SODIUM CHLORIDE 50 ML IV ×3 (05:24→21:35)
[2024-07-06 06:45] LABS: POC Glucose,Bedside 150 (70-110)
--- NOTE | 2024-07-06 06:56 | PC.NURSE ---
Pt is A&O x4 and currently tolerting 3L. Pt has c/o moderate to severe pain and has been treated per MAR. Pt ARLINE drain has had little drainage. Pt dressing is still in place. Pt has had no acute change this shift. Pt denies needs at this time
[2024-07-06 07:03] LABS: Basophils # 0.1 K/mm3 (0-0.2); Basophils % 0.7 % (0.1-2.0); Eosinophils # 0.4 K/mm3 (0.0-0.4); Eosinophils % 4.5 % (0.1-12.0); Hematocrit 37.5 % (37.0-47.0); Hemoglobin 12.1 g/dL (12.2-16.2); Lymphocytes % 24.1 % (10-50); Mean Corpuscular HGB Conc 32.3 g/dL (31.8-35.4); Mean Corpuscular Hemoglobin 29.5 pg (27.0-31.2); Mean Corpuscular Volume 91.2 fl (81-99); Mean Platelet Volume 7.3 fl (7.4-10.4); Monocytes # 0.6 K/mm3 (0.1-1.0); Monocytes % 7.8 % (1.7-9.3); Neutrophils # 5.2 K/mm3 (1.8-7.8); Neutrophils % 62.9 % (37.0-80.0); Platelet Count 273 K/mm3 (142-424); Red Blood Count 4.11 M/mm3 (4.20-5.40); Red Cell Distribution Width 14.1 % (11.5-17.5); White Blood Count 8.2 K/mm3 (4.8-10.8)
[2024-07-06 07:17] LABS: Chloride 97 mmol/L (98-107); Sodium 136 mmol/L (136-145)
[2024-07-06 07:18] LABS: Potassium 3.8 mmoL/L (3.5-5.1)
[2024-07-06 07:21] LABS: Anion Gap 4.8 mEq/L (5-15); Blood Urea Nitrogen 21 mg/dl (7-17); Calcium 8.6 mg/dl (8.4-10.2); Carbon Dioxide 38 mmol/L (22.0-30.0); Creatinine Clearance Estimated 123 mL/min (50-200); Estimated Glomerular Filt Rate 65 ml/min (>60); GFR (African American) 79 ML/MIN (>60); Glucose 135 mg/dl (74-100)
[2024-07-06 08:00] VITALS: BP 127/61; PULSE 74; RESP 18; TEMP 36.6; O2SAT 90
[2024-07-06] MEDS: DULOXETINE 30MG CAPSULE.DR 60 MG PO (09:34)
[2024-07-06] MEDS: LISINOPRIL 2.5MG TABLET 2.5 MG PO (09:34)
[2024-07-06] MEDS: GABAPENTIN 400MG CAPSULE 400 MG PO ×3 (09:34→21:36)
[2024-07-06] MEDS: FENOFIBRATE 54MG TABLET 54 MG PO (09:34)
[2024-07-06] MEDS: CITALOPRAM 40MG TABLET 40 MG PO (09:35)
[2024-07-06] MEDS: METHOCARBAMOL 500MG TABLET 1000 MG PO ×3 (09:35→21:36)
[2024-07-06] MEDS: ISOSORBIDE MONO 30MG TAB.ER.24H 30 MG PO (09:35)
[2024-07-06] MEDS: CARVEDILOL 25MG TABLET 25 MG PO ×2 (09:35→21:36)
[2024-07-06] MEDS: FUROSEMIDE 80 MG TABLET PO ×2 (09:35→16:05)
[2024-07-06] MEDS: METHIMAZOLE 10 MG 0.25 EACH PO (09:37)
[2024-07-06 12:00] VITALS: BP 130/68; PULSE 71; RESP 18; TEMP 36.6; O2SAT 93
[2024-07-06 12:09] LABS: POC Glucose,Bedside 144 (70-110)
[2024-07-06] MEDS: MORPHINE 2MG/ML SYRINGE 2 MG IV ×2 (13:19→21:45)
--- NOTE | 2024-07-06 15:13 | P.PN_ITS ---
Subjective *Date: 07/06/24 *Time: 15:13 Interval history: Patient is sitting in bed comfortably this morning without acute distress. Right foot ARLINE drain draining minimal serosanguineous fluid less than 100 cc. Exam Data for Last 24 hours Vital signs and Labs for Last 24 Hours: Temp Pulse Resp BP Pulse Ox O2 Del Method O2 Flow Rate 97.8 F 74 18 127/61 90 L Room Air 3 07/06/24 08:00 07/06/24 08:00 07/06/24 08:00 07/06/24 08:00 07/06/24 08:00 07/06/24 11:00 07/06/24 06:53 FiO2 32 07/02/24 02:12 Laboratory Results - last 24 hr 07/05/24 15:42: POC Glucose 196 H 07/05/24 21:24: POC Glucose 122 H 07/06/24 05:24: POC Glucose 150 H 07/06/24 05:49: WBC 8.2, RBC 4.11 L, Hgb 12.1 L, Hct 37.5, MCV 91.2, MCH 29.5, MCHC 32.3, RDW 14.1, Plt Count 273, MPV 7.3 L, Neut % (Auto) 62.9, Lymph % (Auto) 24.1, [place]ook[place] % (Auto) 7.8, Eos % (Auto) 4.5, Baso % (Auto) 0.7, Neut # (Auto) 5.2, Lymph # (Auto) 2.0, [place] # (Auto) 0.6, Eos # (Auto) 0.4, Baso # (Auto) 0.1, Sodium 136, Potassium 3.8, Chloride 97 L, Carbon Dioxide 38 H, Anion Gap 4.8 L, BUN 21 H, Creatinine 0.90, Estimated Creat Clear 123, Estimated GFR 65, Est GFR ( Amer) 79, Glucose 135 H D, Calcium 8.6 07/06/24 11:58: POC Glucose 144 H I & O for Last 24 hours: Intake & Output 07/03/24 07/04/24 07/05/24 07/06/24 23:59 23:59 23:59 23:59 Intake Total 2847 / 3197 1330 / 1330 1300 / 2200 900 / 900 Output Total 1450 / 1450 400 / 450 50 / 50 0 / 0 Balance 1397 / 1747 930 / 880 1250 / 2150 900 / 900 Weight 106 kg 106.8 kg 111.584 kg 110.677 kg Microbiology Reports for the Last 24 Hours: Microbiology 07/02/24 15:00 Foot,Right Bone Culture - Preliminary Gram Positive Cocci 07/01/24 19:25 Blood Blood Culture - Preliminary NO GROWTH AFTER 4 DAYS 07/01/24 18:45 Blood Blood Culture - Preliminary NO GROWTH AFTER 4 DAYS Constitutional Constitutional: no acute distress *Routine HEENT Exam Head: Present normocephalic Eye: Present EOMI and PERRL ENT: Present mucous membranes moist *Routine Neck Exam Neck: Present supple; Absent lymphadenopathy *Routine Respiratory Exam Respiratory: Present CTA bilaterally *Routine Cardiovascular Exam Cardiovascular: Present RRR *Routine Abdominal Exam Abdominal: Present soft and normoactive bowel sounds; Absent tenderness *Routine Extremities Exam Extremities: Absent cyanosis, clubbing or edema Comments: Right foot dressed s/p debridement and amputation. ARLINE drain in place with minimal serosanguineous discharge. *Routine Skin Exam Skin: Present warm; Absent rash *Routine Neurological Exam Neurological: Present alert and oriented X3 Assessment and Plan *Assessment and plan (1) Cellulitis of right foot: Status: Acute Category: Medical Code(s): L03.115 - Cellulitis of right lower limb (2) Osteomyelitis: Status: Acute Qualifiers: Laterality: right Osteomyelitis location: foot Osteomyelitis type: unspecified type Qualified Code(s): M86.9 - Osteomyelitis, unspecified Category: Medical Code(s): M86.9 - Osteomyelitis, unspecified (3) Diabetic foot ulcer: Status: Acute Qualifiers: Diabetic foot ulcer location: other Diabetes mellitus type: type 2 Laterality: right Non-pressure ulcer stage: with necrosis of bone Qualified Code(s): E11.621 - Type 2 diabetes mellitus with foot ulcer; L97.514 - Non- pressure chronic ulcer of other part of right foot with necrosis of bone Category: Medical Code(s): E11.621 - Type 2 diabetes mellitus with foot ulcer; L97.509 - Non-pressure chronic ulcer of other part of unspecified foot with unspecified severity Plan Patient is a 54-year-old female with past medical history of diabetes mellitus, diabetic neuropathy who presents to the hospital due to right foot pain as well as diabetic foot ulcer. According to patient she follows up with [facility] at . Patient reports pus discharge from ulcer as well as worsening pain 10/10 intensity constant, sharp. Patient otherwise denied chest pain shortness of breath nausea vomiting diarrhea constipation dysuria fevers and chills. Assessment and plan R Diabetic foot ulcer R Diabetic foot cellulitis Acute on chronic osteomyelitis of R foot ? Patient states she has had a right foot ulcer for the past few months, getting worse over the past week prior to admission. ? CT of the foot revealed acute on chronic osteomyelitis, CRP and ESR also significantly elevated. ? Patient is status post right fifth metatarsal amputation, incision and drainage, and debridement of midfoot. ? Patient continues to feel well, still endorses right foot pain but better with switching to Dilaudid yesterday. Eager to be discharged pending culture results. ? Leukocytosis resolved from 11.3. ? Continue IV vancomycin, Zosyn pending cultures. ? Wound cultures reveal gram-positive cocci, strep Agalactiae. Bone cultures revealed gram-positive cocci, pending speciation and sensitivities. ? PO Dilaudid for moderate/severe pain, morphine for breakthrough pain. ? Anticipate 6 weeks of IV antibiotics pending cultures. ? PICC line placed. ? Right foot ARLINE drain draining minimal serosanguineous fluid. Spoke with podiatry, plan to remove it today. ? Wound care consulted, pending recommendations for dressing. ? Patient has bed offer [facility] swing bed. Just waiting for final bone cultures. Diabetes mellitus ?LDSSI, ACHS glucose checks Chronic medical conditions Hypertension Hypothyroidism Depression Hyperlipidemia Restless leg syndrome -Resume home medications including coreg, lisinopril, ropinirole, methimazole, Protonix, trazodone, duloxetine. ? Hold home Lasix, Imdur pending improvement in blood pressures. Patient does not have a history of heart failure and is euvolemic.
[2024-07-06 16:00] VITALS: BP 124/64; PULSE 75; RESP 18; TEMP 36.9; O2SAT 93
[2024-07-06] MEDS: LIDOCAINE 5% TRANSDERMAL PATCH 1 EACH TP (16:05)
[2024-07-06] MEDS: humaLOG 100 UNITS/ML 10ML VIAL (SSI) SQ ×2 (16:17→21:36)
[2024-07-06 16:46] LABS: POC Glucose,Bedside 190 (70-110)
--- NOTE | 2024-07-06 16:49 | PC.NURSE ---
aox4, dressing changed per orders this shift. minimal drainage noted in sima drain. has been medicated per mar for pain. tolerating transfer to bsc and chair with 1 assist and use of walker. po intake adequate. tolerated room air for most of shift but patient requested to reapply 2lnc for o2 support around 1700.
[2024-07-06] MEDS: VANCOMYCIN HCL 1,750 MG in 0.9 % SODIUM CHLORIDE 250 ML 125 MG IV (17:04)
[2024-07-06 20:00] VITALS: BP 159/82; PULSE 74; RESP 18; TEMP 36.9; O2SAT 97
[2024-07-06] MEDS: TRAZODONE 50MG TABLET 150 MG PO (21:36)
[2024-07-06] MEDS: INSULIN GLARGINE 100 UNITS/ML 3ML FLEXPEN 10 UNIT SQ (21:36)
[2024-07-06] MEDS: ROPINIROLE 1MG TABLET 3 MG PO (21:36)
[2024-07-06] MEDS: PANTOPRAZOLE 40MG TABLET 40 MG PO (21:36)
[2024-07-06 21:51] LABS: POC Glucose,Bedside 181 (70-110)
[2024-07-06] MEDS: HYDROMORPHONE HCL 2 MG TABLET PO (22:50)
[2024-07-07] VITALS (7 sets, daily range): BP systolic 115–137; BP diastolic 52–79; PULSE 68–74; RESP 16–20; TEMP 36.7–37.3; O2SAT 90–98; BMI 39.9
[2024-07-07] MEDS: HEPARIN SODIUM 5,000 UNIT/ML VIAL 5000 UNIT SQ ×3 (01:45→16:18)
[2024-07-07] MEDS: PIPERACILLIN/TAZO 3.375 GM in 0.9 % SODIUM CHLORIDE 50 ML IV ×4 (02:01→20:56)
[2024-07-07] MEDS: HYDROMORPHONE HCL 2 MG TABLET 3 MG PO ×2 (02:35→10:00)
--- NOTE | 2024-07-07 02:42 | PC.NURSE ---
patient has c/o left rib pain - lidocaine patch removed.
[2024-07-07 06:02] LABS: POC Glucose,Bedside 148 (70-110)
[2024-07-07 06:17] LABS: Basophils # 0.1 K/mm3 (0-0.2); Basophils % 0.7 % (0.1-2.0); Eosinophils # 0.4 K/mm3 (0.0-0.4); Eosinophils % 5.3 % (0.1-12.0); Hematocrit 32.7 % (37.0-47.0); Hemoglobin 10.6 g/dL (12.2-16.2); Lymphocytes # 2.1 K/mm3 (0.7-4.5); Lymphocytes % 26.2 % (10-50); Mean Corpuscular HGB Conc 32.3 g/dL (31.8-35.4); Mean Corpuscular Hemoglobin 29.1 pg (27.0-31.2); Mean Corpuscular Volume 90.1 fl (81-99); Mean Platelet Volume 7.2 fl (7.4-10.4); Monocytes # 0.5 K/mm3 (0.1-1.0); Monocytes % 6.3 % (1.7-9.3); Neutrophils # 4.9 K/mm3 (1.8-7.8); Neutrophils % 61.5 % (37.0-80.0); Platelet Count 279 K/mm3 (142-424); Red Blood Count 3.63 M/mm3 (4.20-5.40); Red Cell Distribution Width 14.1 % (11.5-17.5); White Blood Count 7.9 K/mm3 (4.8-10.8)
[2024-07-07 06:25] LABS: Chloride 95 mmol/L (98-107)
[2024-07-07 06:26] LABS: Potassium 3.9 mmoL/L (3.5-5.1); Sodium 136 mmol/L (136-145)
[2024-07-07 06:28] LABS: Blood Urea Nitrogen 17 mg/dl (7-17); Creatinine Clearance Estimated 141 mL/min (50-200); Estimated Glomerular Filt Rate 74 ml/min (>60); GFR (African American) 90 ML/MIN (>60)
[2024-07-07 06:29] LABS: Calcium 8.8 mg/dl (8.4-10.2); Glucose 137 mg/dl (74-100)
[2024-07-07 06:38] LABS: Anion Gap 5.9 mEq/L (5-15); Carbon Dioxide 39 mmol/L (22.0-30.0)
--- NOTE | 2024-07-07 07:09 | EXP.ORTH.PN ---
Subjective *Date: 07/07/24 *Time: 08:05 Interval history: Patient is doing very well this morning, finished her breakfast no nausea, fever and was just medicated per RN for pain. Ortho Exam (Inpt) Vital signs and Labs for Last 24 Hours: Temp Pulse Resp BP Pulse Ox O2 Del Method O2 Flow Rate 98.8 F 73 16 129/66 95 Room Air 2 07/07/24 04:00 07/07/24 04:00 07/07/24 04:00 07/07/24 04:00 07/07/24 04:00 07/07/24 06:45 07/07/24 04:00 FiO2 32 07/02/24 02:12 Laboratory Results - last 24 hr 07/06/24 05:49: WBC 8.2, RBC 4.11 L, Hgb 12.1 L, Hct 37.5, MCV 91.2, MCH 29.5, MCHC 32.3, RDW 14.1, Plt Count 273, MPV 7.3 L, Neut % (Auto) 62.9, Lymph % (Auto) 24.1, [place] % (Auto) 7.8, Eos % (Auto) 4.5, Baso % (Auto) 0.7, Neut # (Auto) 5.2, Lymph # (Auto) 2.0, [place] # (Auto) 0.6, Eos # (Auto) 0.4, Baso # (Auto) 0.1, Sodium 136, Potassium 3.8, Chloride 97 L, Carbon Dioxide 38 H, Anion Gap 4.8 L, BUN 21 H, Creatinine 0.90, Estimated Creat Clear 123, Estimated GFR 65, Est GFR ( Amer) 79, Glucose 135 H D, Calcium 8.6 07/06/24 11:58: POC Glucose 144 H 07/06/24 16:04: POC Glucose 190 H 07/06/24 21:33: POC Glucose 181 H 07/07/24 05:55: POC Glucose 148 H 07/07/24 06:00: WBC 7.9, RBC 3.63 L, Hgb 10.6 L, Hct 32.7 L, MCV 90.1, MCH 29.1, MCHC 32.3, RDW 14.1, Plt Count 279, MPV 7.2 L, Neut % (Auto) 61.5, Lymph % (Auto) 26.2, [place] % (Auto) 6.3, Eos % (Auto) 5.3, Baso % (Auto) 0.7, Neut # (Auto) 4.9, Lymph # (Auto) 2.1, [place] # (Auto) 0.5, Eos # (Auto) 0.4, Baso # (Auto) 0.1, Sodium 136, Potassium 3.9, Chloride 95 L, Carbon Dioxide 39 H, Anion Gap 5.9, BUN 17, Creatinine 0.80, Estimated Creat Clear 141, Estimated GFR 74, Est GFR ( Amer) 90, Glucose 137 H, Calcium 8.8 I & O for Labs for Last 24 Hours: Intake & Output 07/04/24 07/05/24 07/06/24 07/07/24 23:59 23:59 23:59 23:59 Intake Total 1330 / 1330 1300 / 1300 1380 / 1380 360 / 360 Output Total 400 / 400 50 / 50 0 / 0 0 / 0 Balance 930 / 930 1250 / 1250 1380 / 1380 360 / 360 Weight 235 lb 7.259 oz 246 lb 244 lb 248 lb 6.4 oz Microbiology Reports for the Last 24 Hours: Microbiology 07/01/24 19:25 Blood Blood Culture - Final NO GROWTH AFTER 5 DAYS 07/01/24 18:45 Blood Blood Culture - Final NO GROWTH AFTER 5 DAYS 07/02/24 15:00 Foot,Right Bone Culture - Preliminary Gram Positive Cocci Head: Present normocephalic Eyes: Present as per HPI Neck: Present trachea midline Respiratory: Present normal respiratory effort and able to speak in complete sentences Cardiac: Present posterior tibial pulses present and pedal pulses present Comments:: deferred Rectal (female): Present deferred (female): Present deferred Extremities: Present tenderness (surgical site, Right 5th met amputation, site looks good, tissue in wound bed looks healthy. ), normal capillary refill and edema (edema improving ); Absent calf tenderness Muscle Strength (Extremity): Patient Baseline Skin: Present warm, normal turgor and wounds (s/p 07/02/24 Right foot I&D, 5th ray amputation, ARLINE drain) Neuro: Present oriented x 3 and moves all extremities Ankle: right: swelling (trace ankle edema ) Feet/Toes: right: swelling (1+ pedal edema; improving ), right: tenderness (s/p Right 5th met, toe amputation, ARLINE drain) and right: decreased ROM Assessment and Plan *Assessment and plan (1) Osteomyelitis: Status: Acute Qualifiers: Laterality: right Osteomyelitis location: foot Osteomyelitis type: unspecified type Qualified Code(s): M86.9 - Osteomyelitis, unspecified Category: Medical Code(s): M86.9 - Osteomyelitis, unspecified (2) Diabetic foot ulcer: Status: Acute Qualifiers: Diabetes mellitus type: type 2 Diabetic foot ulcer location: other Laterality: right Non-pressure ulcer stage: with necrosis of bone Qualified Code(s): E11.621 - Type 2 diabetes mellitus with foot ulcer; L97.514 - Non-pressure chronic ulcer of other part of right foot with necrosis of bone Category: Medical Code(s): E11.621 - Type 2 diabetes mellitus with foot ulcer; L97.509 - Non-pressure chronic ulcer of other part of unspecified foot with unspecified severity (3) Diabetes: Status: Chronic Qualifiers: Diabetes mellitus complication status: with other specified complication 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 insulin use: with marine oil terminal superintendent use Diabetes mellitus type: type 2 Qualified Code(s): E11.69 - Type 2 diabetes mellitus with other specified complication Category: Medical Code(s): E11.9 - Type 2 diabetes mellitus without complications (4) Hypertension: Status: Chronic Qualifiers: Hypertension type: essential hypertension Qualified Code(s): I10 - Essential (primary) hypertension Category: Medical Code(s): I10 - Essential (primary) hypertension (5) Hypothyroidism: Status: Chronic Qualifiers: Hypothyroidism type: acquired Qualified Code(s): E03.9 - Hypothyroidism, unspecified Category: Medical Code(s): E03.9 - Hypothyroidism, unspecified (6) Depression: Status: Chronic Qualifiers: Depression Type: unspecified Qualified Code(s): F32.A - Depression, unspecified Category: Medical Code(s): F32.9 - Major depressive disorder, single episode, unspecified (7) Anxiety: Status: Chronic Category: Medical Code(s): F41.9 - Anxiety disorder, unspecified (8) Fibromyalgia: Status: Chronic Category: Medical Code(s): M79.7 - Fibromyalgia (9) Pre-ulcerative calluses: Status: Acute Category: Medical Code(s): L84 - Corns and callosities (10) Cellulitis of right foot: Status: Acute Category: Medical Code(s): L03.115 - Cellulitis of right lower limb (11) Decreased pedal pulses: Status: Acute Category: Medical Code(s): R09.89 - Other specified symptoms and signs involving the circulatory and respiratory systems (12) Soft tissue infection of foot: Status: Acute Category: Medical Code(s): L08.9 - Local infection of the skin and subcutaneous tissue, unspecified (13) Neuropathy: Status: Chronic Category: Medical Code(s): G62.9 - Polyneuropathy, unspecified (14) Onychoincurvatum: Status: Acute Category: Medical Code(s): L60.8 - Other nail disorders (15) Onychodystrophy: Status: Acute Category: Medical Code(s): L60.3 - Nail dystrophy (16) Keratosis: Status: Acute Category: Medical Code(s): L57.0 - Actinic keratosis (17) Diabetic foot ulcer: Status: Acute Qualifiers: Diabetes mellitus type: type 2 Diabetic foot ulcer location: heel Laterality: right Non-pressure ulcer stage: with other severity Qualified Code(s): E11.621 - Type 2 diabetes mellitus with foot ulcer; L97.418 - Non-pressure chronic ulcer of right heel and midfoot with other specified severity Category: Medical Code(s): E11.621 - Type 2 diabetes mellitus with foot ulcer; L97.509 - Non-pressure chronic ulcer of other part of unspecified foot with unspecified severity (18) Amputation of toe: Status: Acute Qualifiers: Laterality: right Qualified Code(s): S98.131A - Complete traumatic amputation of one right lesser toe, initial encounter Category: Medical Code(s): S98.139A - Complete traumatic amputation of one unspecified lesser toe, initial encounter (19) Status post amputation: Start date: 08/02/24 Problem Comment: Right fifth ray(metatarsal, toe) amputation for Osteomyelitis Status: Acute Category: Surgical Code(s): Z89.9 - Acquired absence of limb, unspecified (20) Acute osteomyelitis: Status: Acute Category: Medical Code(s): M86.10 - Other acute osteomyelitis, unspecified site Plan Patient is a 54-year-old female with past medical history of diabetes mellitus, diabetic neuropathy who presents to the hospital due to right foot pain as well as diabetic foot ulcer. 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 Patient reports pus discharge from ulcer as well as worsening pain 10/10 intensity constant, sharp. Patient otherwise denied chest pain shortness of breath nausea vomiting diarrhea constipation dysuria fevers and chills. 07/02/24: Podiatry consult Patient is a 54-year-old female that is a current podiatry patient that I recently saw in the clinic in December for a loose toenail. Patient states the wound started couple weeks ago with a blister. Patient was seen in [facility] ER at that time was given antibiotics, x-ray she stated at that time did not show bone infection. Patient was then seen last night in our [facility] ER with foot pain drainage and worsening ulceration to the right foot. X-rays have now shown acute on chronic osteomyelitis to the right foot. Patient has been kept n.p.o. after midnight. Plan for patient to be added to surgery schedule today. Verbal as well as written consent has been obtained by the patient for incision and drainage right foot, irrigation and debridement of nonviable soft tissue and bone, partial fifth metatarsal amputation (possible wound VAC application) for bone abscess. Wound culture has been obtained from the site this morning. Patient reports intense pain when compressing around the right foot ulceration and directly above the ulceration is a callus with a small 0 x 3 x 0.3 cm opening. This more than likely this may have been the start of the abscess. Patient denies any fever, nausea or vomiting. Patient was receiving IV pain medication at the time of my rounding. 07/07/24: Post Op day #5, Sx. 07/02/24: S/P Right fifth ray (metatarsal, toe) amputation, Right foot incision and drainage, Right foot wide excisional debridement, Application of ARLINE drain Plan: Maintain dressing clean dry and intact. ARLINE drain maintenance. NWB to RLE in postop shoe with walker/wheelchair. Consult care management: For discharge planning, SNF placement needed, she will need daily dressing changes with Betadine packing, dry sterile dressing and abx mgmt. Concern over her compliance. Continuation of IV antibiotics (IV Zosyn, vancomycin) until cultures finalized. Reviewed labs: Leukocytosis resolved from 11.3- 7.9 Dressing was changed this morning, betadine gauze packed, dry sterile 4x4, kerlix, joan wrap, ARLINE drain left in place. Continue IV antibiotics for abscess/OM. Until culture finalize, rec IV abx x4-6 wks with weekly labs to monitor infection (cbc, bmp, esr, crp). Strongly rec: SNF for daily dsg changes, PICC, IV abx, NWB to RLE (has postop shoe). Pain control per hospitalist Removed a few sutures to relieve tension, plan for wound vac placement No plan for more surgery at this time. Discussed possibility of delayed primary closure or skin grafting once infection resolves. Patient has bed offer [facility] swing bed. Just waiting for final bone cultures. Will continue to follow patient while still inpatient She will need a Post op follow up in 1 week after discharge for dressing change and skin check. Specimens:: Pending Wound cultures reveal gram-positive cocci, strep Agalactiae. Bone cultures revealed gram-positive cocci, pending specification and sensitivities. Right fifth metatarsal bone culture Right foot ulcer tissue culture Right fifth metatarsal bone pathology
[2024-07-07] MEDS: MORPHINE 2MG/ML SYRINGE 2 MG IV ×3 (07:53→20:51)
[2024-07-07] MEDS: LISINOPRIL 2.5MG TABLET 2.5 MG PO (09:57)
[2024-07-07] MEDS: FUROSEMIDE 80 MG TABLET PO ×2 (09:57→16:18)
[2024-07-07] MEDS: ISOSORBIDE MONO 30MG TAB.ER.24H 30 MG PO (09:57)
[2024-07-07] MEDS: CARVEDILOL 25MG TABLET 25 MG PO ×2 (09:57→20:52)
[2024-07-07] MEDS: DULOXETINE 30MG CAPSULE.DR 60 MG PO (09:57)
[2024-07-07] MEDS: CITALOPRAM 40MG TABLET 40 MG PO (09:57)
[2024-07-07] MEDS: GABAPENTIN 400MG CAPSULE 400 MG PO ×2 (09:57→20:52)
[2024-07-07] MEDS: FENOFIBRATE 54MG TABLET 54 MG PO (09:57)
[2024-07-07] MEDS: METHIMAZOLE 10 MG 0.25 EACH PO (09:58)
[2024-07-07] MEDS: METHOCARBAMOL 500MG TABLET 1000 MG PO ×2 (09:58→20:52)
[2024-07-07] MEDS: humaLOG 100 UNITS/ML 10ML VIAL (SSI) SQ ×2 (11:49→20:55)
[2024-07-07 11:56] LABS: POC Glucose,Bedside 188 (70-110)
[2024-07-07 12:55] LABS: Vancomycin,Trough 13.8 ug/mL (5.0-10.0)
--- NOTE | 2024-07-07 13:47 | EXP.PHA.CONS ---
Pharmacy Consult Date: 07/07/24 Time: 13:47 Referring provider: DR. CASTRO Reason for Consult:: VANCOMYCIN TROUGH LEVEL Allergies Allergy/AdvReac Type Severity Reaction Status Date / Time ceftriaxone [From ROCEPHIN] Allergy Unknown Verified 01/23/24 14:56 droperidol [From INAPSINE] Allergy Unknown Verified 01/23/24 14:56 ibuprofen [IBUPROFEN] Allergy Unknown Verified 01/23/24 14:56 moxifloxacin [From AVELOX] Allergy Unknown Verified 01/23/24 14:56 Home Medications ?Medication ?Instructions ?Recorded ?Confirmed ?Type flash glucose sensor 05/04/22 07/06/24 History flash glucose scanning reader 08/14/22 07/06/24 History ([employer] Joelle 14 Day Hansen) carvedilol 25 mg tablet 25 mg PO BID High blood pressure 02/15/23 07/01/24 Rx 90 days #180 tabs duloxetine 60 mg capsule,delayed 60 mg PO DAILY MOOD #90 caps 02/15/23 07/01/24 Rx release escitalopram oxalate 20 mg tablet 20 mg PO DAILY Depression #90 tabs 02/15/23 07/01/24 Rx fenofibrate 54 mg tablet 54 mg PO DAILY Cholesterol #90 tabs 02/15/23 07/01/24 Rx insulin glargine 100 unit/mL (3 10 unit (0.1 mL) SQ HS Diabetes 02/15/23 07/01/24 Rx mL) subcutaneous pen #15 mL lisinopril 2.5 mg tablet 2.5 mg PO DAILY Hypertension #90 02/15/23 07/01/24 Rx tabs methocarbamol 1,000 mg tablet 1,000 mg PO TID muscle spasms #90 04/16/23 07/01/24 Rx tabs semaglutide 1 mg/dose (4 mg/3 mL) 2 mg SQ WEEKLY Diabetes 04/16/23 07/02/24 History subcutaneous pen injector flash glucose sensor (FreeFritteryle #1 ea 06/15/23 07/06/24 Rx Joelle 14 Day Sensor kit) gabapentin 400 mg capsule 400 mg PO TID NEUROPATHY 07/01/24 07/01/24 History furosemide 40 mg tablet 40 mg PO BID 07/02/24 07/02/24 History hydroxyzine pamoate 25 mg capsule 25 mg PO TID PRN Panic Disorder 07/02/24 07/02/24 History insulin NPH-regular 70-30 U-100 60 unit SQ BID 07/02/24 07/02/24 History insulin 100 unit/mL subcutaneous pen (Humulin 70/30 U-100 Tonya) isosorbide dinitrate 30 mg tablet 30 mg PO BID 07/02/24 07/02/24 History methimazole 5 mg tablet 2.5 mg PO DAILY 07/02/24 07/02/24 History pantoprazole 40 mg tablet,delayed 40 mg PO DAILY 07/02/24 07/02/24 History release ropinirole 3 mg tablet 3 mg PO HS 07/02/24 07/02/24 History tizanidine 4 mg tablet 4 mg PO BID PRN Myalgia 07/02/24 07/02/24 History trazodone 150 mg tablet 150 mg PO HS 07/02/24 07/02/24 History New Prescriptions to Start Prescriptions: Height: 1.68 m Weight: 112.672 kg Laboratory Results:: Laboratory Results - last 24 hr 07/06/24 16:04: POC Glucose 190 H 07/06/24 21:33: POC Glucose 181 H 07/07/24 05:55: POC Glucose 148 H 07/07/24 06:00: WBC 7.9, RBC 3.63 L, Hgb 10.6 L, Hct 32.7 L, MCV 90.1, MCH 29.1, MCHC 32.3, RDW 14.1, Plt Count 279, MPV 7.2 L, Neut % (Auto) 61.5, Lymph % (Auto) 26.2, [place] % (Auto) 6.3, Eos % (Auto) 5.3, Baso % (Auto) 0.7, Neut # (Auto) 4.9, Lymph # (Auto) 2.1, [place] # (Auto) 0.5, Eos # (Auto) 0.4, Baso # (Auto) 0.1, Sodium 136, Potassium 3.9, Chloride 95 L, Carbon Dioxide 39 H, Anion Gap 5.9, BUN 17, Creatinine 0.80, Estimated Creat Clear 141, Estimated GFR 74, Est GFR ( Amer) 90, Glucose 137 H, Calcium 8.8 07/07/24 11:38: POC Glucose 188 H 07/07/24 12:10: Vancomycin Trough 13.8 H Medical History: Medical History (Updated 07/03/24 @ 06:44 by Aubree Whitten APRN) Presence of intrathecal pump Excess skin of arm Encounter for wound care 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 PHARMACY WILL CONTINUE TO MONITOR AND WILL ADJUST DOSE APPROPRIATE. -STEPHIE AYALA, NGOCD
[2024-07-07] MEDS: VANCOMYCIN HCL 1,750 MG in 0.9 % SODIUM CHLORIDE 250 ML 125 MG IV (14:53)
[2024-07-07] MEDS: HYDROMORPHONE HCL 2 MG TABLET PO ×2 (15:19→17:56)
[2024-07-07] MEDS: LIDOCAINE 5% TRANSDERMAL PATCH 1 EACH TP (15:21)
--- NOTE | 2024-07-07 17:35 | PC.NURSE ---
pt has sat in chair majority of shift with feet propped up. minimal output from sima drain, <5ml. multiple c/o pain to rt foot t/o shift, treated per mar with some relief. pt became very drowsy, aroused by yelling her name several times , vss. notified [place] and held 1300 gabapentin and methocarbamol. adequate uop and pt has done well transferring with a walker. cb within reach and no needs at this time.
[2024-07-07] MEDS: TRAZODONE 50MG TABLET 150 MG PO (20:51)
[2024-07-07] MEDS: ROPINIROLE 1MG TABLET 3 MG PO (20:51)
[2024-07-07] MEDS: PANTOPRAZOLE 40MG TABLET 40 MG PO (20:52)
[2024-07-07] MEDS: INSULIN GLARGINE 100 UNITS/ML 3ML FLEXPEN 10 UNIT SQ (20:52)
--- NOTE | 2024-07-07 20:58 | P.PN_ITS ---
Subjective *Date: 07/07/24 *Time: 20:59 Interval history: Patient is sitting in bed comfortably this afternoon without acute concerns or distress. ARLINE drain has minimal serosanguineous fluid less than 100 cc. Exam Data for Last 24 hours Vital signs and Labs for Last 24 Hours: Temp Pulse Resp BP Pulse Ox O2 Del Method O2 Flow Rate 98.1 F 72 18 115/65 93 L Room Air 2 07/07/24 16:00 07/07/24 16:00 07/07/24 16:00 07/07/24 16:00 07/07/24 16:00 07/07/24 18:50 07/07/24 04:00 FiO2 32 07/02/24 02:12 Laboratory Results - last 24 hr 07/06/24 21:33: POC Glucose 181 H 07/07/24 05:55: POC Glucose 148 H 07/07/24 06:00: WBC 7.9, RBC 3.63 L, Hgb 10.6 L, Hct 32.7 L, MCV 90.1, MCH 29.1, MCHC 32.3, RDW 14.1, Plt Count 279, MPV 7.2 L, Neut % (Auto) 61.5, Lymph % (Auto) 26.2, [place] % (Auto) 6.3, Eos % (Auto) 5.3, Baso % (Auto) 0.7, Neut # (Auto) 4.9, Lymph # (Auto) 2.1, [place] # (Auto) 0.5, Eos # (Auto) 0.4, Baso # (Auto) 0.1, Sodium 136, Potassium 3.9, Chloride 95 L, Carbon Dioxide 39 H, Anion Gap 5.9, BUN 17, Creatinine 0.80, Estimated Creat Clear 141, Estimated GFR 74, Est GFR ( Amer) 90, Glucose 137 H, Calcium 8.8 07/07/24 11:38: POC Glucose 188 H 07/07/24 12:10: Vancomycin Trough 13.8 H I & O for Last 24 hours: Intake & Output 07/04/24 07/05/24 07/06/24 07/07/24 23:59 23:59 23:59 23:59 Intake Total 1330 / 1330 1300 / 2200 1380 / 1740 1800 / 1800 Output Total 400 / 450 50 / 50 0 / 0 5 / 5 Balance 930 / 880 1250 / 2150 1380 / 1740 1795 / 1795 Weight 106.8 kg 111.584 kg 110.677 kg 112.672 kg Microbiology Reports for the Last 24 Hours: Microbiology 07/02/24 15:00 Foot,Right Bone Culture - Final Staphylococcus equorum 07/01/24 19:25 Blood Blood Culture - Final NO GROWTH AFTER 5 DAYS 07/01/24 18:45 Blood Blood Culture - Final NO GROWTH AFTER 5 DAYS Constitutional Constitutional: no acute distress *Routine HEENT Exam Head: Present normocephalic Eye: Present EOMI and PERRL ENT: Present mucous membranes moist *Routine Neck Exam Neck: Present supple; Absent lymphadenopathy *Routine Respiratory Exam Respiratory: Present CTA bilaterally *Routine Cardiovascular Exam Cardiovascular: Present RRR *Routine Abdominal Exam Abdominal: Present soft and normoactive bowel sounds; Absent tenderness *Routine Extremities Exam Extremities: Absent cyanosis, clubbing or edema Comments: Right foot dressed s/p debridement and amputation. ARLINE drain in place with minimal serosanguineous discharge. *Routine Skin Exam Skin: Present warm; Absent rash *Routine Neurological Exam Neurological: Present alert and oriented X3 Assessment and Plan *Assessment and plan (1) Cellulitis of right foot: Status: Acute Category: Medical Code(s): L03.115 - Cellulitis of right lower limb (2) Osteomyelitis: Status: Acute Qualifiers: Laterality: right Osteomyelitis location: foot Osteomyelitis type: unspecified type Qualified Code(s): M86.9 - Osteomyelitis, unspecified Category: Medical Code(s): M86.9 - Osteomyelitis, unspecified (3) Diabetic foot ulcer: Status: Acute Qualifiers: Diabetic foot ulcer location: other Diabetes mellitus type: type 2 Laterality: right Non-pressure ulcer stage: with necrosis of bone Qualified Code(s): E11.621 - Type 2 diabetes mellitus with foot ulcer; L97.514 - Non- pressure chronic ulcer of other part of right foot with necrosis of bone Category: Medical Code(s): E11.621 - Type 2 diabetes mellitus with foot ulcer; L97.509 - Non-pressure chronic ulcer of other part of unspecified foot with unspecified severity Plan Patient is a 54-year-old female with past medical history of diabetes mellitus, diabetic neuropathy who presents to the hospital due to right foot pain as well as diabetic foot ulcer. 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 Patient reports pus discharge from ulcer as well as worsening pain 10/10 intensity constant, sharp. Patient otherwise denied chest pain shortness of breath nausea vomiting diarrhea constipation dysuria fevers and chills. Assessment and plan R Diabetic foot ulcer R Diabetic foot cellulitis Acute on chronic osteomyelitis of R foot ? Patient states she has had a right foot ulcer for the past few months, getting worse over the past week prior to admission. ? CT of the foot revealed acute on chronic osteomyelitis, CRP and ESR also significantly elevated. ? Patient is status post right fifth metatarsal amputation, incision and drainage, and debridement of midfoot. ? Patient continues to feel well, still endorses right foot pain but better with switching to Dilaudid yesterday. Eager to be discharged pending culture results. ? Leukocytosis resolved from 11.3. ? Continue IV vancomycin, Zosyn pending cultures. ? Wound cultures reveal gram-positive cocci, strep Agalactiae. Bone cultures revealed MRSA, with only intermediate coverage with vancomycin. ? Discussed with podiatry regarding antibiotic regimen, will switch to IV Zyvox twice daily and oral levofloxacin for 4 weeks starting tomorrow. Patient does have a allergy to moxifloxacin, so we will need to clarify tomorrow. ? PO Dilaudid for moderate/severe pain, morphine for breakthrough pain. ? PICC line in place. ? Right foot ARLINE drain draining minimal serosanguineous fluid. Podiatry would like to continue for now. ? Patient has bed offer [facility] swing bed. However, awaiting insurance preauthorization. Diabetes mellitus ?LDSSI, ACHS glucose checks Chronic medical conditions Hypertension Hypothyroidism Depression Hyperlipidemia Restless leg syndrome -Resume home medications including coreg, lisinopril, ropinirole, methimazole, Protonix, trazodone, duloxetine. ? Hold home Lasix, Imdur pending improvement in blood pressures. Patient does not have a history of heart failure and is euvolemic.
[2024-07-07 22:13] LABS: POC Glucose,Bedside 218 (70-110)
[2024-07-08] VITALS: BP 134/61; PULSE 73; RESP 18; TEMP 36.9; O2SAT 95
[2024-07-08] MEDS: HEPARIN SODIUM 5,000 UNIT/ML VIAL 5000 UNIT SQ ×3 (00:24→16:23)
[2024-07-08] MEDS: HYDROMORPHONE HCL 2 MG TABLET PO ×3 (00:25→09:04)
[2024-07-08] MEDS: PIPERACILLIN/TAZO 3.375 GM in 0.9 % SODIUM CHLORIDE 50 ML IV ×4 (03:42→20:59)
[2024-07-08 04:00] VITALS: BP 119/68; PULSE 76; RESP 18; TEMP 37.3; O2SAT 96; BMI 38.2
[2024-07-08] MEDS: VANCOMYCIN HCL 1,750 MG in 0.9 % SODIUM CHLORIDE 250 ML 125 MG IV (04:24)
[2024-07-08 06:14] LABS: POC Glucose,Bedside 143 (70-110)
--- NOTE | 2024-07-08 06:31 | P.PN_ITS ---
Subjective *Date: 07/08/24 *Time: 07:27 Interval history: 07/08/2024 Stop day 6 patient is resting well in bed, states foot is sore but is feeling better than yesterday. The RN from night custodian states that she did not have to empty any out of the ARLINE drain and there appears to be proximately 5 cc in the bulb this morning plan to pull the drain today. Patient will need wound VAC placement once she arrives at [facility]. Ortho Exam (Inpt) Vital signs and Labs for Last 24 Hours: Temp Pulse Resp BP Pulse Ox O2 Del Method O2 Flow Rate 99.2 F 76 18 119/68 96 Nasal Cannula 2 07/08/24 04:00 07/08/24 04:00 07/08/24 04:00 07/08/24 04:00 07/08/24 04:00 07/08/24 05:00 07/08/24 05:00 FiO2 32 07/02/24 02:12 Laboratory Results - last 24 hr 07/07/24 06:00: WBC 7.9, RBC 3.63 L, Hgb 10.6 L, Hct 32.7 L, MCV 90.1, MCH 29.1, MCHC 32.3, RDW 14.1, Plt Count 279, MPV 7.2 L, Neut % (Auto) 61.5, Lymph % (Auto) 26.2, [place] % (Auto) 6.3, Eos % (Auto) 5.3, Baso % (Auto) 0.7, Neut # (Auto) 4.9, Lymph # (Auto) 2.1, [place] # (Auto) 0.5, Eos # (Auto) 0.4, Baso # (Auto) 0.1, Carbon Dioxide 39 H, Anion Gap 5.9, BUN 17, Creatinine 0.80, Estimated Creat Clear 141, Estimated GFR 74, Est GFR ( Amer) 90, Glucose 137 H, Calcium 8.8 07/07/24 11:38: POC Glucose 188 H 07/07/24 12:10: Vancomycin Trough 13.8 H 07/07/24 20:54: POC Glucose 218 H 07/08/24 06:07: POC Glucose 143 H I & O for Labs for Last 24 Hours: Intake & Output 07/05/24 07/06/24 07/07/24 07/08/24 23:59 23:59 23:59 23:59 Intake Total 1300 / 1300 1380 / 1380 2330 / 2330 Output Total 50 / 50 0 / 0 1405 / 1405 1450 / 1450 Balance 1250 / 1250 1380 / 1380 925 / 925 -1450 / -1450 Weight 246 lb 244 lb 248 lb 6.4 oz 238 lb 6.4 oz Microbiology Reports for the Last 24 Hours: Microbiology 07/02/24 15:00 Foot,Right Bone Culture - Final Staphylococcus equorum Head: Present normocephalic Eyes: Present as per HPI Neck: Present trachea midline Respiratory: Present normal respiratory effort and able to speak in complete sentences Cardiac: Present posterior tibial pulses present and pedal pulses present Comments:: deferred Rectal (female): Present deferred (female): Present deferred Extremities: Present tenderness (surgical site, Right 5th met amputation, site looks good, tissue in wound bed looks healthy, bruising skin noted just proximal the wound bed. ), normal capillary refill and edema (edema improving ); Absent calf tenderness Muscle Strength (Extremity): Patient Baseline Skin: Present warm, normal turgor and wounds (s/p 07/02/24 Right foot I&D, 5th ray amputation, ARLINE drain removed 07/08/24) Neuro: Present oriented x 3 and moves all extremities Ankle: right: swelling (trace ankle edema ) Feet/Toes: right: swelling (trace pedal edema; improving ), right: tenderness (s/p Right 5th met, toe amputation) and right: decreased ROM Assessment and Plan *Assessment and plan (1) Osteomyelitis: Status: Acute Qualifiers: Laterality: right Osteomyelitis location: foot Osteomyelitis type: unspecified type Qualified Code(s): M86.9 - Osteomyelitis, unspecified Category: Medical Code(s): M86.9 - Osteomyelitis, unspecified (2) Diabetic foot ulcer: Status: Acute Qualifiers: Diabetes mellitus type: type 2 Diabetic foot ulcer location: other Laterality: right Non-pressure ulcer stage: with necrosis of bone Qualified Code(s): E11.621 - Type 2 diabetes mellitus with foot ulcer; L97.514 - Non- pressure chronic ulcer of other part of right foot with necrosis of bone Category: Medical Code(s): E11.621 - Type 2 diabetes mellitus with foot ulcer; L97.509 - Non-pressure chronic ulcer of other part of unspecified foot with unspecified severity (3) Diabetes: Status: Chronic Qualifiers: Diabetes mellitus complication status: with other specified complication Diabetes mellitus tank terminal gauger insulin use: with tank terminal gauger use Diabetes mellitus type: type 2 Qualified Code(s): E11.69 - Type 2 diabetes mellitus with other specified complication Category: Medical Code(s): E11.9 - Type 2 diabetes mellitus without complications (4) Hypertension: Status: Chronic Qualifiers: Hypertension type: essential hypertension Qualified Code(s): I10 - Essential (primary) hypertension Category: Medical Code(s): I10 - Essential (primary) hypertension (5) Hypothyroidism: Status: Chronic Qualifiers: Hypothyroidism type: acquired Qualified Code(s): E03.9 - Hypothyroidism, unspecified Category: Medical Code(s): E03.9 - Hypothyroidism, unspecified (6) Depression: Status: Chronic Qualifiers: Depression Type: unspecified Qualified Code(s): F32.A - Depression, unspecified Category: Medical Code(s): F32.9 - Major depressive disorder, single episode, unspecified (7) Anxiety: Status: Chronic Category: Medical Code(s): F41.9 - Anxiety disorder, unspecified (8) Fibromyalgia: Status: Chronic Category: Medical Code(s): M79.7 - Fibromyalgia (9) Pre-ulcerative calluses: Status: Acute Category: Medical Code(s): L84 - Corns and callosities (10) Cellulitis of right foot: Status: Acute Category: Medical Code(s): L03.115 - Cellulitis of right lower limb (11) Decreased pedal pulses: Status: Acute Category: Medical Code(s): R09.89 - Other specified symptoms and signs involving the circulatory and respiratory systems (12) Soft tissue infection of foot: Status: Acute Category: Medical Code(s): L08.9 - Local infection of the skin and subcutaneous tissue, unspecified (13) Neuropathy: Status: Chronic Category: Medical Code(s): G62.9 - Polyneuropathy, unspecified (14) Onychoincurvatum: Status: Acute Category: Medical Code(s): L60.8 - Other nail disorders (15) Onychodystrophy: Status: Acute Category: Medical Code(s): L60.3 - Nail dystrophy (16) Keratosis: Status: Acute Category: Medical Code(s): L57.0 - Actinic keratosis (17) Diabetic foot ulcer: Status: Acute Qualifiers: Diabetes mellitus type: type 2 Diabetic foot ulcer location: heel Laterality: right Non-pressure ulcer stage: with other severity Qualified Code(s): E11.621 - Type 2 diabetes mellitus with foot ulcer; L97.418 - Non- pressure chronic ulcer of right heel and midfoot with other specified severity Category: Medical Code(s): E11.621 - Type 2 diabetes mellitus with foot ulcer; L97.509 - Non-pressure chronic ulcer of other part of unspecified foot with unspecified severity (18) Amputation of toe: Status: Acute Qualifiers: Laterality: right Qualified Code(s): S98.131A - Complete traumatic amputation of one right lesser toe, initial encounter Category: Medical Code(s): S98.139A - Complete traumatic amputation of one unspecified lesser toe, initial encounter (19) Status post amputation: Start date: 08/02/24 Problem Comment: Right fifth ray(metatarsal, toe) amputation for Osteomyelitis Status: Acute Category: Surgical Code(s): Z89.9 - Acquired absence of limb, unspecified (20) Acute osteomyelitis: Status: Acute Category: Medical Code(s): M86.10 - Other acute osteomyelitis, unspecified site Plan Patient is a 54-year-old female with past medical history of diabetes mellitus, diabetic neuropathy who presents to the hospital due to right foot pain as well as diabetic foot ulcer. According to patient she follows up with government services professional at . Patient reports pus discharge from ulcer as well as worsening pain 10/10 intensity constant, sharp. Patient otherwise denied chest pain shortness of breath nausea vomiting diarrhea constipation dysuria fevers and chills. 07/02/24: Podiatry consult Patient is a 54-year-old female that is a current podiatry patient that I recently saw in the clinic in December for a loose toenail. Patient states the wound started couple weeks ago with a blister. Patient was seen in [facility] ER at that time was given antibiotics, x-ray she stated at that time did not show bone infection. Patient was then seen last night in our [facility] ER with foot pain drainage and worsening ulceration to the right foot. X-rays have now shown acute on chronic osteomyelitis to the right foot. Patient has been kept n.p.o. after midnight. Plan for patient to be added to surgery schedule today. Verbal as well as written consent has been obtained by the patient for incision and drainage right foot, irrigation and debridement of nonviable soft tissue and bone, partial fifth metatarsal amputation (possible wound VAC application) for bone abscess. Wound culture has been obtained from the site this morning. Patient reports intense pain when compressing around the right foot ulceration and directly above the ulceration is a callus with a small 0 x 3 x 0.3 cm opening. This more than likely this may have been the start of the abscess. Patient denies any fever, nausea or vomiting. Patient was receiving IV pain medication at the time of my rounding. 07/08/24: Post Op day #6, Sx. 07/02/24: S/P Right fifth ray (metatarsal, toe) amputation, Right foot incision and drainage, Right foot wide excisional debridement, Application of ARLINE drain Plan: -Maintain dressing clean dry and intact. ARLINE drain was removed this morning, approximately 5 cc in the bulb at removal. -NWB to RLE in postop shoe with walker/wheelchair. -Patient has bed offer [facility] swing bed. However, awaiting insurance preauthorization. -SNF placement for daily dressing changes with Betadine packing, dry sterile dressing until she gets wound vac placed and abx mgmt. -NWB to RLE (has postop shoe) -Wound cultures reveal gram-positive cocci, strep Agalactiae. Bone cultures revealed MRSA, with only intermediate coverage with vancomycin. -Continue IV antibiotics for abscess/OM IV abx x4-6 wks with weekly labs to monitor infection (cbc, bmp, esr, crp). -PICC line in place -Recommendation to change antibiotic regimen to IV Zyvox twice daily and oral levofloxacin for 4 weeks starting today. Patient does have allergy to moxifloxacin (hives) but states has had Levofloxacin and done well, so we will need to clarify this today prior to starting. -Reviewed labs: Leukocytosis resolved from 11.3- 7.9 -Dressing was changed this morning, betadine gauze packed, dry sterile 4x4, kerlix, joan wrap, ARLINE drain discontinued -Pain control per hospitalist (PO Dilaudid for moderate/severe pain, morphine for breakthrough pain). -Removed a few sutures yesterday 07/07/24 to relieve tension -Plan for wound vac placement -No plan for more surgery at this time. Discussed possibility of delayed primary closure or skin grafting once infection resolves. -Will continue to follow patient while still inpatient -She will need a Post op follow up in 1 week after discharge for dressing change and skin check. Specimens:: Pending Wound cultures reveal gram-positive cocci, strep Agalactiae. Right fifth metatarsal bone culture- Staphylococcus equorum, Methicillin Resistant Staphylococcus Right foot ulcer tissue culture-Staphylococcus epidermidis, Methicillin- Resistant Staphylococcus Right fifth metatarsal bone pathology
[2024-07-08] MEDS: MORPHINE 2MG/ML SYRINGE 2 MG IV ×3 (07:06→21:05)
[2024-07-08 08:00] VITALS: BP 135/68; PULSE 68; RESP 18; TEMP 37.1; O2SAT 95
[2024-07-08] MEDS: LINEZOLID 600 MG/300 ML IV.SOLN 300 MG IV ×2 (08:55→19:40)
[2024-07-08] MEDS: FUROSEMIDE 80 MG TABLET PO ×2 (08:57→16:22)
[2024-07-08] MEDS: CITALOPRAM 40MG TABLET 40 MG PO (08:57)
[2024-07-08] MEDS: DULOXETINE 30MG CAPSULE.DR 60 MG PO (08:57)
[2024-07-08] MEDS: CARVEDILOL 25MG TABLET 25 MG PO ×2 (08:59→20:55)
[2024-07-08] MEDS: METHOCARBAMOL 500MG TABLET 1000 MG PO ×3 (08:59→20:56)
[2024-07-08] MEDS: ISOSORBIDE MONO 30MG TAB.ER.24H 30 MG PO (08:59)
[2024-07-08] MEDS: LISINOPRIL 2.5MG TABLET 2.5 MG PO (09:00)
[2024-07-08] MEDS: FENOFIBRATE 54MG TABLET 54 MG PO (09:00)
[2024-07-08] MEDS: GABAPENTIN 400MG CAPSULE 400 MG PO ×3 (09:00→20:55)
[2024-07-08] MEDS: METHIMAZOLE 10 MG 0.25 EACH PO (09:02)
[2024-07-08 09:36] LABS: Chloride 89 mmol/L (98-107); Potassium 3.9 mmoL/L (3.5-5.1); Sodium 132 mmol/L (136-145)
[2024-07-08 09:39] LABS: Blood Urea Nitrogen 17 mg/dl (7-17); Calcium 8.8 mg/dl (8.4-10.2); Creatinine Clearance Estimated 136 mL/min (50-200); Estimated Glomerular Filt Rate 74 ml/min (>60); GFR (African American) 90 ML/MIN (>60); Glucose 193 mg/dl (74-100)
[2024-07-08 09:45] LABS: C-Reactive Protein 27.2 mg/L (0-4)
[2024-07-08 09:46] LABS: Anion Gap 6.9 mEq/L (5-15); Carbon Dioxide 40 mmol/L (22.0-30.0)
[2024-07-08 09:58] LABS: Albumin Level 2.9 g/dl (3.5-5.0)
[2024-07-08 10:01] LABS: Alanine Aminotransferase 14 U/L (12-78); Alkaline Phosphatase 92 U/L (38-126); Aspartate Amino Transferase 30 U/L (14-36); Bilirubin,Direct 0.2 mg/dl (0.0-0.4); Bilirubin,Indirect 0.3 mg/dL (0.0-0.9); Bilirubin,Total 0.5 mg/dl (0.2-1.3); Bilirubin,Unconjugated 0.3 mg/dL (0.0-1.1); Total Protein,Serum 6.5 g/dl (6.3-8.2)
[2024-07-08] MEDS: humaLOG 100 UNITS/ML 10ML VIAL (SSI) SQ ×2 (11:05→20:56)
[2024-07-08 11:47] LABS: POC Glucose,Bedside 233 (70-110)
[2024-07-08 12:00] VITALS: BP 118/75; PULSE 74; RESP 17; TEMP 36.9; O2SAT 97
[2024-07-08 13:11] LABS: Basophils # 0.1 K/mm3 (0-0.2); Basophils % 0.6 % (0.1-2.0); Eosinophils # 0.4 K/mm3 (0.0-0.4); Eosinophils % 4.5 % (0.1-12.0); Hematocrit 34.7 % (37.0-47.0); Hemoglobin 11.5 g/dL (12.2-16.2); Lymphocytes # 2.5 K/mm3 (0.7-4.5); Lymphocytes % 25.9 % (10-50); Mean Corpuscular HGB Conc 33.1 g/dL (31.8-35.4); Mean Corpuscular Hemoglobin 29.5 pg (27.0-31.2); Mean Corpuscular Volume 89.1 fl (81-99); Mean Platelet Volume 8.4 fl (7.4-10.4); Monocytes # 0.7 K/mm3 (0.1-1.0); Monocytes % 6.8 % (1.7-9.3); Platelet Count 303 K/mm3 (142-424); Red Blood Count 3.89 M/mm3 (4.20-5.40); Red Cell Distribution Width 14.3 % (11.5-17.5); White Blood Count 9.7 K/mm3 (4.8-10.8)
[2024-07-08] MEDS: LIDOCAINE 5% TRANSDERMAL PATCH 1 EACH TP (15:18)
[2024-07-08] MEDS: OXYCODONE 5MG IMMEDIATE RELEASE TABLET 5 MG PO ×2 (15:26→19:40)
[2024-07-08 16:00] VITALS: BP 134/59; PULSE 71; RESP 17; TEMP 37.2; O2SAT 92
[2024-07-08 16:47] LABS: POC Glucose,Bedside 104 (70-110)
--- NOTE | 2024-07-08 17:42 | PC.NURSE ---
1740: Pt. awaiting transfer to [facility] swing bed for rehab and extended antibiotic therapy. Awaiting insurance clearence. Pt. has a PICC line to left upper arm, Biopatch under dressing was saturated and blood tinged fluid was oozing out from under the dressing. Dressing changed Picc line can be postional. Flushes and aspirates blood. Pt. still having a lot of pain to right foot. requesting pain meds frequently Dilaudid was discontinued today and Oxycodone was ordered. Jose wrap dressing to fight foot intact. Pt. able to get from bed to chair and chair /bed to commode with use of the walker and minimal assist. vital signs stable. Antibiotics changed up today.
--- NOTE | 2024-07-08 18:25 | EXP.ACUTE.PN ---
Subjective *Date: 07/08/24 *Time: 21:47 Interval history: Patient denies any significant pain this morning. Overall doing well. Afebrile. Awaiting insurance approval for placement. Tolerating p.o. intake. Stable on 2L NC Medical Exam Vital signs and Labs for Last 24 Hours: Vital Signs Temp Pulse Resp BP Pulse Ox O2 Del Method O2 Flow Rate 07/08/24 17:00 Room Air 07/08/24 16:00 98.9 F 71 17 134/59 L 92 L Nasal Cannula 4 07/08/24 15:00 Room Air 07/08/24 13:00 Room Air 07/08/24 12:00 98.5 F 74 17 118/75 97 Nasal Cannula 3 07/08/24 11:00 Room Air 07/08/24 09:00 Room Air 07/08/24 09:00 Room Air 07/08/24 08:00 98.7 F 68 18 135/68 95 Nasal Cannula 3 07/08/24 08:00 Room Air 07/08/24 06:31 Nasal Cannula 2 07/08/24 05:00 Nasal Cannula 2 07/08/24 04:00 99.2 F 76 18 119/68 96 Nasal Cannula 3 07/08/24 03:00 Nasal Cannula 2 07/08/24 01:00 Nasal Cannula 2 07/08/24 00:00 98.4 F 73 18 134/61 95 Nasal Cannula 3 07/07/24 23:50 96 Room Air 07/07/24 23:00 Nasal Cannula 2 07/07/24 21:00 Room Air 07/07/24 20:00 Room Air 07/07/24 20:00 99.1 F 74 20 116/79 98 Nasal Cannula 3 07/07/24 18:50 Room Air Intake and Output 07/08/24 07/08/24 07/08/24 07:59 15:59 23:59 Intake Total 1020 / 1020 Output Total 1850 / 3550 1000 / 3550 700 / 3550 Balance -1850 / -2530 20 / -2530 -700 / -2530 Intake: Intake, Oral Amount 1020 / 1020 Output: Output, Urine Amount 1850 / 3550 1000 / 3550 700 / 3550 Other: Number of Unmeasured Voids 0 0 0 Number of Bowel Movements 1 Weight 108.136 kg Patient Weight 07/08/24 23:59 Weight 108.136 kg Laboratory Results - last 24 hr 07/07/24 20:54: POC Glucose 218 H 07/08/24 06:07: POC Glucose 143 H 07/08/24 09:23: WBC 9.7, RBC 3.89 L, Hgb 11.5 L, Hct 34.7 L, MCV 89.1, MCH 29.5, MCHC 33.1, RDW 14.3, Plt Count 303, MPV 8.4, Neut % (Auto) 62.0, Lymph % (Auto) 25.9, [place] % (Auto) 6.8, Eos % (Auto) 4.5, Baso % (Auto) 0.6, Neut # (Auto) 6.0, Lymph # (Auto) 2.5, [place] # (Auto) 0.7, Eos # (Auto) 0.4, Baso # (Auto) 0.1, Sodium 132 L, Potassium 3.9, Chloride 89 L, Carbon Dioxide 40 H, Anion Gap 6.9, BUN 17, Creatinine 0.80, Estimated Creat Clear 136, Estimated GFR 74, Est GFR ( Amer) 90, Glucose 193 H, Calcium 8.8, Total Bilirubin 0.5, Direct Bilirubin 0.2, Conjugated Bilirubin 0.0, Indirect Bilirubin 0.3, Unconjugated Bilirubin 0.3, AST 30, ALT 14, Alkaline Phosphatase 92, C-Reactive Protein 27.2 H, Total Protein 6.5, Albumin 2.9 L 07/08/24 10:54: POC Glucose 233 H 07/08/24 16:23: POC Glucose 104 I & O for Labs for Last 24 Hours: Intake & Output 07/05/24 07/06/24 07/07/24 07/08/24 23:59 23:59 23:59 23:59 Intake Total 1300 / 2200 1380 / 1740 2330 / 2330 1020 / 1020 Output Total 50 / 50 0 / 0 1405 / 1905 3550 / 3550 Balance 1250 / 2150 1380 / 1740 925 / 425 -2530 / -2530 Weight 111.584 kg 110.677 kg 112.672 kg 108.136 kg Microbiology Reports for the Last 24 Hours: Microbiology 07/02/24 15:00 Foot,Right Gram Stain - Final 07/02/24 15:00 Foot,Right Surgical Biopsy Culture - Final Staphylococcus epidermidis Constitutional: Present no acute distress, obese, chronically ill appearing and cooperative Head: Present atraumatic and normocephalic ENT: Present normal exam Respiratory: Present normal respiratory effort; Absent rhonchi, wheezes or crackles Cardiac: Present Reg Rate and Rhythm GI: Present soft and normal bowel sounds; Absent distention or tenderness Comment:: Right foot and postsurgical wrap. Toes exposed, warm. Absent fifth digit status post fifth metatarsal amputation. Skin: Present intact; Absent erythema Neuro: Present Grossly Intact, alert, awake, oriented x 3 and moves all extremities Assessment and Plan *Assessment and plan (1) Cellulitis of right foot: Status: Acute Category: Medical Code(s): L03.115 - Cellulitis of right lower limb (2) Osteomyelitis: Status: Acute Qualifiers: Laterality: right Osteomyelitis location: foot Osteomyelitis type: unspecified type Qualified Code(s): M86.9 - Osteomyelitis, unspecified Category: Medical Code(s): M86.9 - Osteomyelitis, unspecified (3) Diabetic foot ulcer: Status: Acute Qualifiers: Diabetes mellitus type: type 2 Diabetic foot ulcer location: other Laterality: right Non-pressure ulcer stage: with necrosis of bone Qualified Code(s): E11.621 - Type 2 diabetes mellitus with foot ulcer; L97.514 - Non-pressure chronic ulcer of other part of right foot with necrosis of bone Category: Medical Code(s): E11.621 - Type 2 diabetes mellitus with foot ulcer; L97.509 - Non-pressure chronic ulcer of other part of unspecified foot with unspecified severity (4) Neuropathy: Status: Chronic Category: Medical Code(s): G62.9 - Polyneuropathy, unspecified (5) Hypothyroidism: Status: Acute Category: Medical Code(s): E03.9 - Hypothyroidism, unspecified (6) Moderate depressive disorder: Status: Acute Category: Medical Code(s): F32.A - Depression, unspecified (7) Type 2 diabetes mellitus: Status: Chronic Qualifiers: Diabetes mellitus complication detail: with polyneuropathy Diabetes mellitus complication status: with neurologic complications Diabetes mellitus terminal supervisor insulin use: with terminal supervisor use Qualified Code(s): E11.42 - Type 2 diabetes mellitus with diabetic polyneuropathy Category: Medical Code(s): E11.9 - Type 2 diabetes mellitus without complications Plan Patient is a 54-year-old female with past medical history of diabetes mellitus, diabetic neuropathy who presents to the hospital due to right foot pain as well as diabetic foot ulcer. 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 Patient reports pus discharge from ulcer as well as worsening pain 10/10 intensity constant, sharp. Patient otherwise denied chest pain shortness of breath nausea vomiting diarrhea constipation dysuria fevers and chills. Status post I&D with amputation of fifth metatarsal of right foot. Overall doing well. Stable to discharge to rehab. Awaiting insurance approval. Problems addressed as follows: Assessment and plan R Diabetic foot ulcer R Diabetic foot cellulitis Acute on chronic osteomyelitis of R foot ? Patient states she has had a right foot ulcer for the past few months, getting worse over the past week prior to admission. ? CT of the foot revealed acute on chronic osteomyelitis, CRP and ESR also significantly elevated. ? Patient is status post right fifth metatarsal amputation, incision and drainage, and debridement of midfoot. ? Patient continues to feel well, still endorses right foot pain. Transition to oral regimen with longer acting oxycodone to establish regimen for discharge. Continue 5 mg every 4 hours as needed for severe breakthrough pain. Discontinue Dilaudid. Monitor for toxicity. - White count normalized at 9.7. Hemoglobin stable 11.5. Kidney function and electrolytes normal with BUN 17, creatinine 0.8. CRP improving at 27.2; CBC, CMP, magnesium ordered for the morning. ? Transition to Zyvox and Levaquin. Culture resistant to vancomycin. Will treat for 2 more weeks starting today. ? Wound cultures reveal gram-positive cocci, strep Agalactiae. Bone cultures revealed MRSA, with only intermediate coverage with vancomycin. -Discussed case with podiatry. Nonweightbearing on foot. Stable to discharge to rehab. Will follow-up as outpatient. Agree with antibiotic regimen. ? PICC line in place. ? Right foot ARLINE drain draining minimal serosanguineous fluid. Podiatry would like to continue for now. ? Patient has bed offer [facility] swing bed. However, awaiting insurance preauthorization. Diabetes mellitus ?LDSSI, ACHS glucose checks Chronic medical conditions Hypertension Hypothyroidism Depression Hyperlipidemia Restless leg syndrome -Resume home medications including coreg, lisinopril, ropinirole, methimazole, Protonix, trazodone, duloxetine. ? Hold home Lasix, Imdur pending improvement in blood pressures. Patient does not have a history of heart failure and is euvolemic.
[2024-07-08 20:00] VITALS: BP 107/59; PULSE 77; RESP 16; TEMP 36.8; O2SAT 90
[2024-07-08] MEDS: PANTOPRAZOLE 40MG TABLET 40 MG PO (20:55)
[2024-07-08] MEDS: TRAZODONE 50MG TABLET 150 MG PO (20:56)
[2024-07-08] MEDS: ROPINIROLE 1MG TABLET 3 MG PO (20:56)
[2024-07-08] MEDS: INSULIN GLARGINE 100 UNITS/ML 3ML FLEXPEN 10 UNIT SQ (20:57)
--- NOTE | 2024-07-08 22:05 | PC.NURSE ---
PICC dsg saturated - dsg changed
[2024-07-09] VITALS: BP 142/64; PULSE 75; RESP 16; TEMP 36.7; O2SAT 92; O2SAT 95
[2024-07-09] MEDS: HEPARIN SODIUM 5,000 UNIT/ML VIAL 5000 UNIT SQ ×3 (00:02→18:22)
[2024-07-09 00:08] LABS: POC Glucose,Bedside 289 (70-110)
[2024-07-09 00:08] LABS: POC Glucose,Bedside 58 (70-110)
--- NOTE | 2024-07-09 01:33 | PC.NURSE ---
0000 FSBS was 58 and she was diaphoretic. Administered OJ and chocolate pudding. Recheck at 0100 FSBS 91 and asymptomatic.
[2024-07-09 01:37] LABS: POC Glucose,Bedside 91 (70-110)
[2024-07-09 04:00] VITALS: BP 118/60; PULSE 73; RESP 18; TEMP 36.6; O2SAT 94; BMI 38.9
[2024-07-09] MEDS: PIPERACILLIN/TAZO 3.375 GM in 0.9 % SODIUM CHLORIDE 50 ML IV ×4 (04:00→21:08)
--- NOTE | 2024-07-09 06:30 | PC.NURSE ---
patient has fluctuated between RA-3L NC, needs O2 when sleeping mostly.
[2024-07-09 06:33] LABS: POC Glucose,Bedside 127 (70-110)
[2024-07-09 06:45] LABS: Basophils # 0.1 K/mm3 (0-0.2); Basophils % 0.8 % (0.1-2.0); Chloride 87 mmol/L (98-107); Eosinophils # 0.4 K/mm3 (0.0-0.4); Eosinophils % 3.3 % (0.1-12.0); Hematocrit 33.7 % (37.0-47.0); Hemoglobin 11.2 g/dL (12.2-16.2); Lymphocytes # 2.1 K/mm3 (0.7-4.5); Lymphocytes % 19.8 % (10-50); Mean Corpuscular HGB Conc 33.2 g/dL (31.8-35.4); Mean Corpuscular Hemoglobin 29.1 pg (27.0-31.2); Mean Corpuscular Volume 87.6 fl (81-99); Mean Platelet Volume 7.4 fl (7.4-10.4); Monocytes # 0.7 K/mm3 (0.1-1.0); Monocytes % 6.5 % (1.7-9.3); Neutrophils # 7.4 K/mm3 (1.8-7.8); Neutrophils % 69.5 % (37.0-80.0); Platelet Count 309 K/mm3 (142-424); Potassium 3.7 mmoL/L (3.5-5.1); Red Blood Count 3.85 M/mm3 (4.20-5.40); Red Cell Distribution Width 14.2 % (11.5-17.5); Sodium 133 mmol/L (136-145); White Blood Count 10.7 K/mm3 (4.8-10.8)
[2024-07-09 06:48] LABS: Blood Urea Nitrogen 19 mg/dl (7-17); Calcium 8.9 mg/dl (8.4-10.2); Creatinine Clearance Estimated 138 mL/min (50-200); Estimated Glomerular Filt Rate 74 ml/min (>60); GFR (African American) 90 ML/MIN (>60); Glucose 119 mg/dl (74-100)
[2024-07-09 06:53] LABS: C-Reactive Protein 33.6 mg/L (0-4)
--- NOTE | 2024-07-09 06:54 | P.PN_ITS ---
Subjective *Date: 07/09/24 *Time: 08:25 Interval history: Patient was sleeping upon entering the room this morning, she states she actually had a decent night sleep. Reports tenderness to the bottom of the surgical site, but other than that it has improved since yesterday. Ortho Exam (Inpt) Vital signs and Labs for Last 24 Hours: Temp Pulse Resp BP Pulse Ox O2 Del Method O2 Flow Rate 97.9 F 73 18 118/60 94 L Nasal Cannula 3 07/09/24 04:00 07/09/24 04:00 07/09/24 04:00 07/09/24 04:00 07/09/24 04:00 07/09/24 06:28 07/09/24 06:28 FiO2 32 07/02/24 02:12 Laboratory Results - last 24 hr 07/08/24 09:23: WBC 9.7, RBC 3.89 L, Hgb 11.5 L, Hct 34.7 L, MCV 89.1, MCH 29.5, MCHC 33.1, RDW 14.3, Plt Count 303, MPV 8.4, Neut % (Auto) 62.0, Lymph % (Auto) 25.9, [place] % (Auto) 6.8, Eos % (Auto) 4.5, Baso % (Auto) 0.6, Neut # (Auto) 6.0, Lymph # (Auto) 2.5, [place] # (Auto) 0.7, Eos # (Auto) 0.4, Baso # (Auto) 0.1, Sodium 132 L, Potassium 3.9, Chloride 89 L, Carbon Dioxide 40 H, Anion Gap 6.9, BUN 17, Creatinine 0.80, Estimated Creat Clear 136, Estimated GFR 74, Est GFR ( Amer) 90, Glucose 193 H, Calcium 8.8, Total Bilirubin 0.5, Direct Bilirubin 0.2, Conjugated Bilirubin 0.0, Indirect Bilirubin 0.3, Unconjugated Bilirubin 0.3, AST 30, ALT 14, Alkaline Phosphatase 92, C-Reactive Protein 27.2 H, Total Protein 6.5, Albumin 2.9 L 07/08/24 10:54: POC Glucose 233 H 07/08/24 16:23: POC Glucose 104 07/08/24 20:17: POC Glucose 289 H 07/09/24 00:00: POC Glucose 58 L 07/09/24 01:28: POC Glucose 91 07/09/24 06:20: WBC 10.7, RBC 3.85 L, Hgb 11.2 L, Hct 33.7 L, MCV 87.6, MCH 29.1, MCHC 33.2, RDW 14.2, Plt Count 309, MPV 7.4, Neut % (Auto) 69.5, Lymph % (Auto) 19.8, [place] % (Auto) 6.5, Eos % (Auto) 3.3, Baso % (Auto) 0.8, Neut # (Auto) 7.4, Lymph # (Auto) 2.1, [place] # (Auto) 0.7, Eos # (Auto) 0.4, Baso # (Auto) 0.1, Sodium 133 L, Potassium 3.7, Chloride 87 L, BUN 19 H, Creatinine 0.80, Estimated Creat Clear 138, Estimated GFR 74, Est GFR ( Amer) 90, Glucose 119 H D, Calcium 8.9, C-Reactive Protein 33.6 H 07/09/24 06:27: POC Glucose 127 H I & O for Labs for Last 24 Hours: Intake & Output 07/06/24 07/07/24 07/08/24 07/09/24 23:59 23:59 23:59 23:59 Intake Total 1380 / 1380 2330 / 2330 1790 / 1790 Output Total 0 / 0 1405 / 1405 3550 / 3550 1900 / 1900 Balance 1380 / 1380 925 / 925 -1760 / -1760 -1900 / -1900 Weight 244 lb 248 lb 6.4 oz 238 lb 6.4 oz 242 lb 6.337 oz Microbiology Reports for the Last 24 Hours: Microbiology 07/02/24 15:00 Foot,Right Gram Stain - Final 07/02/24 15:00 Foot,Right Surgical Biopsy Culture - Final Staphylococcus epidermidis Head: Present normocephalic Eyes: Present as per HPI Neck: Present trachea midline Respiratory: Present normal respiratory effort and able to speak in complete sentences Cardiac: Present posterior tibial pulses present and pedal pulses present Comments:: deferred Rectal (female): Present deferred (female): Present deferred Extremities: Present tenderness (surgical site, Right 5th met amputation, site looks good, tissue in wound bed looks healthy, bruising skin noted just proximal the wound bed. ), normal capillary refill and edema (edema improving ); Absent calf tenderness Muscle Strength (Extremity): Patient Baseline Skin: Present warm, normal turgor and wounds (s/p 07/02/24 Right foot I&D, 5th ray amputation, ARLINE drain removed 07/08/24) Neuro: Present oriented x 3 and moves all extremities Ankle: right: swelling (trace ankle edema ) Feet/Toes: right: swelling (trace pedal edema; improving ), right: tenderness (s/p Right 5th met, toe amputation) and right: decreased ROM Assessment and Plan *Assessment and plan (1) Osteomyelitis: Status: Acute Qualifiers: Laterality: right Osteomyelitis location: foot Osteomyelitis type: unspecified type Qualified Code(s): M86.9 - Osteomyelitis, unspecified Category: Medical Code(s): M86.9 - Osteomyelitis, unspecified (2) Diabetic foot ulcer: Status: Acute Qualifiers: Diabetes mellitus type: type 2 Diabetic foot ulcer location: other Laterality: right Non-pressure ulcer stage: with necrosis of bone Qualified Code(s): E11.621 - Type 2 diabetes mellitus with foot ulcer; L97.514 - Non- pressure chronic ulcer of other part of right foot with necrosis of bone Category: Medical Code(s): E11.621 - Type 2 diabetes mellitus with foot ulcer; L97.509 - Non-pressure chronic ulcer of other part of unspecified foot with unspecified severity (3) Diabetes: Status: Chronic Qualifiers: Diabetes mellitus complication status: with other specified complication Diabetes mellitus chcf insulin use: with chcf use Diabetes mellitus type: type 2 Qualified Code(s): E11.69 - Type 2 diabetes mellitus with other specified complication Category: Medical Code(s): E11.9 - Type 2 diabetes mellitus without complications (4) Hypertension: Status: Chronic Qualifiers: Hypertension type: essential hypertension Qualified Code(s): I10 - Essential (primary) hypertension Category: Medical Code(s): I10 - Essential (primary) hypertension (5) Hypothyroidism: Status: Chronic Qualifiers: Hypothyroidism type: acquired Qualified Code(s): E03.9 - Hypothyroidism, unspecified Category: Medical Code(s): E03.9 - Hypothyroidism, unspecified (6) Depression: Status: Chronic Qualifiers: Depression Type: unspecified Qualified Code(s): F32.A - Depression, unspecified Category: Medical Code(s): F32.9 - Major depressive disorder, single episode, unspecified (7) Anxiety: Status: Chronic Category: Medical Code(s): F41.9 - Anxiety disorder, unspecified (8) Fibromyalgia: Status: Chronic Category: Medical Code(s): M79.7 - Fibromyalgia (9) Pre-ulcerative calluses: Status: Acute Category: Medical Code(s): L84 - Corns and callosities (10) Cellulitis of right foot: Status: Acute Category: Medical Code(s): L03.115 - Cellulitis of right lower limb (11) Decreased pedal pulses: Status: Acute Category: Medical Code(s): R09.89 - Other specified symptoms and signs involving the circulatory and respiratory systems (12) Soft tissue infection of foot: Status: Acute Category: Medical Code(s): L08.9 - Local infection of the skin and subcutaneous tissue, unspecified (13) Neuropathy: Status: Chronic Category: Medical Code(s): G62.9 - Polyneuropathy, unspecified (14) Onychoincurvatum: Status: Acute Category: Medical Code(s): L60.8 - Other nail disorders (15) Onychodystrophy: Status: Acute Category: Medical Code(s): L60.3 - Nail dystrophy (16) Keratosis: Status: Acute Category: Medical Code(s): L57.0 - Actinic keratosis (17) Diabetic foot ulcer: Status: Acute Qualifiers: Diabetes mellitus type: type 2 Diabetic foot ulcer location: heel Laterality: right Non-pressure ulcer stage: with other severity Qualified Code(s): E11.621 - Type 2 diabetes mellitus with foot ulcer; L97.418 - Non- pressure chronic ulcer of right heel and midfoot with other specified severity Category: Medical Code(s): E11.621 - Type 2 diabetes mellitus with foot ulcer; L97.509 - Non-pressure chronic ulcer of other part of unspecified foot with unspecified severity (18) Amputation of toe: Status: Acute Qualifiers: Laterality: right Qualified Code(s): S98.131A - Complete traumatic amputation of one right lesser toe, initial encounter Category: Medical Code(s): S98.139A - Complete traumatic amputation of one unspecified lesser toe, initial encounter (19) Status post amputation: Start date: 08/02/24 Problem Comment: Right fifth ray(metatarsal, toe) amputation for Osteomyelitis Status: Acute Category: Surgical Code(s): Z89.9 - Acquired absence of limb, unspecified (20) Acute osteomyelitis: Status: Acute Category: Medical Code(s): M86.10 - Other acute osteomyelitis, unspecified site Plan Patient is a 54-year-old female with past medical history of diabetes mellitus, diabetic neuropathy who presents to the hospital due to right foot pain as well as diabetic foot ulcer. 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 Patient reports pus discharge from ulcer as well as worsening pain 10/10 intensity constant, sharp. Patient otherwise denied chest pain shortness of breath nausea vomiting diarrhea constipation dysuria fevers and chills. 07/02/24: Podiatry consult Patient is a 54-year-old female that is a current podiatry patient that I recently saw in the clinic in December for a loose toenail. Patient states the wound started couple weeks ago with a blister. Patient was seen in [facility] ER at that time was given antibiotics, x-ray she stated at that time did not show bone infection. Patient was then seen last night in our [facility] ER with foot pain drainage and worsening ulceration to the right foot. X-rays have now shown acute on chronic osteomyelitis to the right foot. Patient has been kept n.p.o. after midnight. Plan for patient to be added to surgery schedule today. Verbal as well as written consent has been obtained by the patient for incision and drainage right foot, irrigation and debridement of nonviable soft tissue and bone, partial fifth metatarsal amputation (possible wound VAC application) for bone abscess. Wound culture has been obtained from the site this morning. Patient reports intense pain when compressing around the right foot ulceration and directly above the ulceration is a callus with a small 0 x 3 x 0.3 cm opening. This more than likely this may have been the start of the abscess. Patient denies any fever, nausea or vomiting. Patient was receiving IV pain medication at the time of my rounding. 07/09/24: Post Op day #7, Sx. 07/02/24: S/P Right fifth ray (metatarsal, toe) amputation, Right foot incision and drainage, Right foot wide excisional debridement, Application of ARLINE drain Plan: -Maintain dressing clean dry and intact. -Patient has bed offer [facility] swing bed. However, awaiting insurance preauthorization. -Wound cultures reveal gram-positive cocci, strep Agalactiae. Bone cultures revealed MRSA, with only intermediate coverage with vancomycin. -PICC line in place -Reviewed labs: Leukocytosis resolved from 11.3- 10.7 -Dressing was changed this morning, betadine gauze packed, dry sterile 4x4, kerlix, joan wrap, ARLINE drain discontinued yesterday Apply wound vac once at [facility]. Wound vac to right foot wounds @125mmHg medium continuous. Plan to vac changes twice weekly (/Fri or Mon/). If vac has an issue that can not be trouble shoot immediately, remove and apply betadine gauze packing, dry 4x4, kerlix, joan wrap. -NWB to RLE in postop shoe with walker/wheelchair. -PICC, IV abx: abx x 3 wks total with weekly labs to monitor infection (cbc, bmp, esr, crp) faxed to PCP and Podiatry Dr Ortiz @[phone]. -Will continue to follow patient while still inpatient -IV Zyvox 600mg q12h, Levo 750mg x2 wks (07/08-07/23/24). -Pain control per hospitalist. -No plan for more surgery at this time. Discussed possibility of delayed primary closure or skin grafting once infection resolves. -She will need a post op follow up in 1 week after discharge for dressing change and skin check. -All orders per Dr. Ortiz Specimens:: Wound cultures reveal gram-positive cocci, strep Agalactiae (Gentamicin Resistant) Right fifth metatarsal bone culture- Staphylococcus equorum, Methicillin Resistant Staphylococcus Right foot ulcer tissue culture-Staphylococcus epidermidis, Methicillin- Resistant Staphylococcus
[2024-07-09 06:59] LABS: Anion Gap 5.7 mEq/L (5-15); Carbon Dioxide 44 mmol/L (22.0-30.0)
[2024-07-09 08:00] VITALS: BP 120/68; PULSE 65; RESP 16; TEMP 36.6; O2SAT 95
[2024-07-09] MEDS: LINEZOLID 600 MG/300 ML IV.SOLN 300 MG IV ×2 (09:13→20:05)
[2024-07-09] MEDS: CARVEDILOL 25MG TABLET 25 MG PO ×2 (09:18→20:11)
[2024-07-09] MEDS: ISOSORBIDE MONO 30MG TAB.ER.24H 30 MG PO (09:18)
[2024-07-09] MEDS: LISINOPRIL 2.5MG TABLET 2.5 MG PO (09:18)
[2024-07-09] MEDS: METHOCARBAMOL 500MG TABLET 1000 MG PO ×3 (09:19→20:10)
[2024-07-09] MEDS: GABAPENTIN 400MG CAPSULE 400 MG PO ×3 (09:19→20:11)
[2024-07-09] MEDS: FENOFIBRATE 54MG TABLET 54 MG PO (09:19)
[2024-07-09] MEDS: CITALOPRAM 40MG TABLET 40 MG PO (09:19)
[2024-07-09] MEDS: DULOXETINE 30MG CAPSULE.DR 60 MG PO (09:19)
[2024-07-09] MEDS: FUROSEMIDE 80 MG TABLET PO ×2 (09:20→18:22)
[2024-07-09] MEDS: OXYCODONE 5MG IMMEDIATE RELEASE TABLET 5 MG PO ×3 (10:45→20:10)
[2024-07-09] MEDS: METHIMAZOLE 10 MG 0.25 EACH PO (10:51)
[2024-07-09] MEDS: humaLOG 100 UNITS/ML 10ML VIAL (SSI) SQ ×2 (11:18→21:08)
[2024-07-09 11:54] LABS: POC Glucose,Bedside 186 (70-110)
[2024-07-09 12:00] VITALS: BP 100/59; PULSE 64; RESP 18; TEMP 36.6; O2SAT 92
[2024-07-09] MEDS: ONDANSETRON 4MG/2ML VIAL 4 MG IV ×2 (13:43→19:39)
--- NOTE | 2024-07-09 14:35 | P.PN_ITS ---
Subjective *Date: 07/09/24 *Time: 14:35 Interval history: Remained stable. Pain doing well on current regimen. No nausea or vomiting. On room air. Tolerating p.o. intake. Awaiting insurance approval for placed Medical Exam Vital signs and Labs for Last 24 Hours: Vital Signs Temp Pulse Resp BP Pulse Ox O2 Del Method O2 Flow Rate 07/09/24 12:00 97.9 F 64 18 100/59 L 92 L Room Air 07/09/24 11:00 Room Air, Nasal Cannula 07/09/24 09:00 Room Air, Nasal Cannula 07/09/24 08:00 Room Air 07/09/24 08:00 97.9 F 65 16 120/68 95 Room Air 07/09/24 06:28 Nasal Cannula 3 07/09/24 05:00 Nasal Cannula 3 07/09/24 04:00 97.9 F 73 18 118/60 94 L Nasal Cannula 3 07/09/24 03:00 Room Air 07/09/24 01:00 Nasal Cannula 2 07/09/24 00:00 95 Nasal Cannula 2 07/09/24 00:00 98.1 F 75 16 142/64 H 92 L Nasal Cannula 2 07/08/24 23:00 Nasal Cannula 2 07/08/24 21:00 Nasal Cannula 2 07/08/24 20:00 Room Air, Nasal Cannula 2 07/08/24 20:00 98.2 F 77 16 107/59 L 90 L Nasal Cannula 2 07/08/24 18:31 Room Air 07/08/24 17:00 Room Air 07/08/24 16:00 98.9 F 71 17 134/59 L 92 L Nasal Cannula 4 07/08/24 15:00 Room Air Intake and Output 07/08/24 07/09/24 07/09/24 23:59 07:59 15:59 Intake Total 770 / 1790 Output Total 700 / 4450 2300 / 2300 0 / 2300 Balance 70 / -2660 -2300 / -2300 0 / -2300 Intake: Intake, Oral Amount 420 / 1440 Intake, Total IV Amount 350 / 350 Linezolid 600 mg In 300 ml @ 300 / 300 300 mls/hr IV Q12H [facility] Rx#: [id number] Piperacillin/Tazo 3.375 gm In 0 50 / 50 .9 % Sodium Chloride 50 ml @ 100 mls/hr IV Q6H [facility] Rx#: [id number] Output: Output, Urine Amount 700 / 4450 2300 / 2300 0 / 2300 Other: Number of Unmeasured Voids 1 0 2 Number of Bowel Movements 1 Weight 109.949 kg Patient Weight 07/09/24 23:59 Weight 109.949 kg Laboratory Results - last 24 hr 07/08/24 16:23: POC Glucose 104 07/08/24 20:17: POC Glucose 289 H 07/09/24 00:00: POC Glucose 58 L 07/09/24 01:28: POC Glucose 91 07/09/24 06:20: WBC 10.7, RBC 3.85 L, Hgb 11.2 L, Hct 33.7 L, MCV 87.6, MCH 29.1, MCHC 33.2, RDW 14.2, Plt Count 309, MPV 7.4, Neut % (Auto) 69.5, Lymph % (Auto) 19.8, [place] % (Auto) 6.5, Eos % (Auto) 3.3, Baso % (Auto) 0.8, Neut # (Auto) 7.4, Lymph # (Auto) 2.1, [place] # (Auto) 0.7, Eos # (Auto) 0.4, Baso # (Aut o) 0.1, Sodium 133 L, Potassium 3.7, Chloride 87 L, Carbon Dioxide 44 H*, Anion Gap 5.7, BUN 19 H, Creatinine 0.80, Estimated Creat Clear 138, Estimated GFR 74, Est GFR ( Amer) 90, Glucose 119 H D, Calcium 8.9, C-Reactive Protein 33.6 H 07/09/24 06:27: POC Glucose 127 H 07/09/24 11:09: POC Glucose 186 H I & O for Labs for Last 24 Hours: Intake & Output 07/06/24 07/07/24 07/08/24 07/09/24 23:59 23:59 23:59 23:59 Intake Total 1380 / 1740 2330 / 2330 1790 / 1790 Output Total 0 / 0 1405 / 1905 3550 / 4450 2300 / 2300 Balance 1380 / 1740 925 / 425 -1760 / -2660 -2300 / -2300 Weight 110.677 kg 112.672 kg 108.136 kg 109.949 kg Constitutional: Present no acute distress, obese, chronically ill appearing and cooperative Head: Present atraumatic and normocephalic ENT: Present normal exam Respiratory: Present normal respiratory effort; Absent rhonchi, wheezes or crackles Cardiac: Present Reg Rate and Rhythm GI: Present soft and normal bowel sounds; Absent distention or tenderness Comment:: Right foot and postsurgical wrap. Toes exposed, warm. Absent fifth digit status post fifth metatarsal amputation. Skin: Present intact; Absent erythema Neuro: Present Grossly Intact, alert, awake, oriented x 3 and moves all extre mities Assessment and Plan *Assessment and plan (1) Cellulitis of right foot: Status: Acute Category: Medical Code(s): L03.115 - Cellulitis of right lower limb (2) Osteomyelitis: Status: Acute Qualifiers: Laterality: right Osteomyelitis location: foot Osteomyelitis type: unspecified type Qualified Code(s): M86.9 - Osteomyelitis, unspecified Category: Medical Code(s): M86.9 - Osteomyelitis, unspecified (3) Diabetic foot ulcer: Status: Acute Qualifiers: Diabetic foot ulcer location: other Diabetes mellitus type: type 2 Laterality: right Non-pressure ulcer stage: with necrosis of bone Qualified Code(s): E11.621 - Type 2 diabetes mellitus with foot ulcer; L97.514 - Non- pressure chronic ulcer of other part of right foot with necrosis of bone Category: Medical Code(s): E11.621 - Type 2 diabetes mellitus with foot ulcer; L97.509 - Non-pressure chronic ulcer of other part of unspecified foot with unspecified severity (4) Neuropathy: Status: Chronic Category: Medical Code(s): G62.9 - Polyneuropathy, unspecified (5) Hypothyroidism: Status: Acute Category: Medical Code(s): E03.9 - Hypothyroidism, unspecified (6) Moderate depressive disorder: Status: Acute Category: Medical Code(s): F32.A - Depression, unspecified (7) Type 2 diabetes mellitus: Status: Chronic Qualifiers: Diabetes mellitus terminal press operator insulin use: with terminal press operator use Diabetes mellitus complication status: with neurologic complications Diabetes mellitus complication detail: with polyneuropathy Qualified Code(s): E11.42 - Type 2 diabetes mellitus with diabetic polyneuropathy Category: Medical Code(s): E11.9 - Type 2 diabetes mellitus without complications Plan Patient is a 54-year-old female with past medical history of diabetes mellitus, diabetic neuropathy who presents to the hospital due to right foot pain as well as diabetic foot ulcer. 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 Patient reports pus discharge from ulcer as well as worsening pain 10/10 intensity constant, sharp. Patient otherwise denied chest pain shortness of breath nausea vomiting diarrhea constipation dysuria fevers and chills. Status post I&D with amputation of fifth metatarsal of right foot. Overall doing well. Stable to discharge to rehab. Awaiting insurance approval. Problems addressed as follows: R Diabetic foot ulcer R Diabetic foot cellulitis Acute on chronic osteomyelitis of R foot ? Patient states she has had a right foot ulcer for the past few months, getting worse over the past week prior to admission. ? CT of the foot revealed acute on chronic osteomyelitis, CRP and ESR also significantly elevated. ? Patient is status post right fifth metatarsal amputation, incision and d rainage, and debridement of midfoot. ? Patient continues to feel well, still endorses right foot pain. Tolerating transition to oxycodone. Continue 5 mg every 4 hours as needed for severe breakthrough pain. Monitor for toxicity. - White count normalized at 10.7. Hemoglobin stable 11.2. Kidney function and electrolytes normal with BUN 19, creatinine 0.8. CBC, CMP, magnesium ordered for the morning. ? Transition to Zyvox and Levaquin day 2/14 ? Wound cultures reveal gram-positive cocci, strep Agalactiae. Bone cultures revealed MRSA, with only intermediate coverage with vancomycin. -Discussed case with podiatry. Nonweightbearing on foot. Stable to discharge to rehab. Will follow-up as outpatient. Agree with antibiotic regimen. ? PICC line in place. ? Right foot ARLINE drain draining minimal serosanguineous fluid. Podiatry would like to continue for now. ? Patient has bed offer [facility] swing bed. However, awaiting insurance preauthorization. Diabetes mellitus ?LDSSI, ACHS glucose checks Chronic medical conditions Hypertension Hypothyroidism Depression Hyperlipidemia Restless leg syndrome -Resume home medications including coreg, lisinopril, ropinirole, methimazole, Protonix, trazodone, duloxetine. ? Hold home Lasix, Imdur pending improvement in blood pressures. Patient does not have a history of heart failure and is euvolemic.
[2024-07-09 16:00] VITALS: BP 110/56; PULSE 68; RESP 17; TEMP 36.6; O2SAT 93
--- NOTE | 2024-07-09 18:14 | PC.NURSE ---
pt has rested well this shift. she has c/o of pain and nausea, treated per NOV. blood sugars have been WDL and treated per NOV. she has ambulated from the chair to the bedside commode with walker well. PICC line dressing changed, clean and intact. call light within reach no further requests at this time.
[2024-07-09 19:20] LABS: POC Glucose,Bedside 98 (70-110)
[2024-07-09 19:20] LABS: POC Glucose,Bedside 102 (70-110)
[2024-07-09 19:36] LABS: POC Glucose,Bedside 272 (70-110)
[2024-07-09 20:00] VITALS: BP 112/59; PULSE 65; RESP 18; TEMP 36.7; O2SAT 95
[2024-07-09] MEDS: TRAZODONE 50MG TABLET 150 MG PO (20:10)
[2024-07-09] MEDS: ROPINIROLE 1MG TABLET 3 MG PO (20:10)
[2024-07-09] MEDS: PANTOPRAZOLE 40MG TABLET 40 MG PO (20:11)
[2024-07-09] MEDS: INSULIN GLARGINE 100 UNITS/ML 3ML FLEXPEN 10 UNIT SQ (20:11)
[2024-07-09 21:12] LABS: POC Glucose,Bedside 305 (70-110)
[2024-07-10] VITALS: BP 125/68; PULSE 65; RESP 16; TEMP 36.6; O2SAT 96
[2024-07-10] MEDS: OXYCODONE 5MG IMMEDIATE RELEASE TABLET 5 MG PO ×4 (01:03→20:18)
[2024-07-10] MEDS: HEPARIN SODIUM 5,000 UNIT/ML VIAL 5000 UNIT SQ ×3 (01:03→16:28)
[2024-07-10] MEDS: PIPERACILLIN/TAZO 3.375 GM in 0.9 % SODIUM CHLORIDE 50 ML IV ×4 (02:30→20:17)
[2024-07-10 04:00] VITALS: BP 104/51; PULSE 64; RESP 16; TEMP 36.8; O2SAT 96; BMI 38.3
--- NOTE | 2024-07-10 04:15 | PC.NURSE ---
PICC dressing changed, saturated after IV antibiotics
--- NOTE | 2024-07-10 04:31 | PC.NURSE ---
No acute changes overnight. IV antibiotics and pain medication administered per NOV. PICC dressing changed, still leaking. Call light within reach.
[2024-07-10 06:05] LABS: POC Glucose,Bedside 83 (70-110)
--- NOTE | 2024-07-10 06:33 | EXP.ORTH.PN ---
Subjective *Date: 07/10/24 *Time: : Interval history: Patient awake sitting up in bed upon entering room,remained stable. Pain doing well on current regimen. No nausea or vomiting. On room air. Reports some pain and tenderness to surgical right foot. Ortho Exam (Inpt) Vital signs and Labs for Last 24 Hours: Temp Pulse Resp BP Pulse Ox O2 Del Method O2 Flow Rate 98.2 F 64 16 104/51 L 96 Nasal Cannula 3 07/10/24 04:00 07/10/24 04:00 07/10/24 04:00 07/10/24 04:00 07/10/24 04:00 07/10/24 05:00 07/10/24 05:00 FiO2 32 07/02/24 02:12 Laboratory Results - last 24 hr 07/09/24 06:20: WBC 10.7, RBC 3.85 L, Hgb 11.2 L, Hct 33.7 L, MCV 87.6, MCH 29.1, MCHC 33.2, RDW 14.2, Plt Count 309, MPV 7.4, Neut % (Auto) 69.5, Lymph % (Auto) 19.8, [place] % (Auto) 6.5, Eos % (Auto) 3.3, Baso % (Auto) 0.8, Neut # (Auto) 7.4, Lymph # (Auto) 2.1, [place] # (Auto) 0.7, Eos # (Auto) 0.4, Baso # (Auto) 0.1, Sodium 133 L, Potassium 3.7, Chloride 87 L, Carbon Dioxide 44 H*, Anion Gap 5.7, BUN 19 H, Creatinine 0.80, Estimated Creat Clear 138, Estimated GFR 74, Est GFR ( Amer) 90, Glucose 119 H D, Calcium 8.9, C-Reactive Protein 33.6 H 07/09/24 06:27: POC Glucose 127 H 07/09/24 11:09: POC Glucose 186 H 07/09/24 13:51: POC Glucose 98 07/09/24 16:02: POC Glucose 102 07/09/24 19:25: POC Glucose 272 H 07/09/24 21:05: POC Glucose 305 H* 07/10/24 05:48: POC Glucose 83 I & O for Labs for Last 24 Hours: Intake & Output 07/07/24 07/08/24 07/09/24 07/10/24 23:59 23:59 23:59 23:59 Intake Total 2330 / 2330 1790 / 1790 1080 / 1080 350 / 350 Output Total 1405 / 1405 3550 / 3550 2950 / 2950 2100 / 2100 Balance 925 / 925 -1760 / -1760 -1870 / -1870 -1750 / -1750 Weight 248 lb 6.4 oz 238 lb 6.4 oz 242 lb 6.337 oz 238 lb 11.2 oz Head: Present normocephalic Eyes: Present as per HPI Neck: Present trachea midline Respiratory: Present normal respiratory effort and able to speak in complete sentences Cardiac: Present posterior tibial pulses present and pedal pulses present Comments:: deferred Rectal (female): Present deferred (female): Present deferred Extremities: Present tenderness (surgical site, Right 5th met amputation, site looks good, tissue in wound bed looks healthy, bruising/darker skin noted just proximal the wound bed. ), normal capillary refill and edema (edema improving ); Absent calf tenderness Muscle Strength (Extremity): Patient Baseline Skin: Present warm, normal turgor and wounds (s/p 07/02/24 Right foot I&D, 5th ray amputation; stable) Neuro: Present oriented x 3 and moves all extremities Ankle: right: swelling (trace ankle edema ) Feet/Toes: right: swelling (trace pedal edema; improving ), right: tenderness (s/p Right 5th met, toe amputation; stable ) and right: decreased ROM Assessment and Plan *Assessment and plan (1) Osteomyelitis: Status: Acute Qualifiers: Laterality: right Osteomyelitis location: foot Osteomyelitis type: unspecified type Qualified Code(s): M86.9 - Osteomyelitis, unspecified Category: Medical Code(s): M86.9 - Osteomyelitis, unspecified (2) Diabetic foot ulcer: Status: Acute Qualifiers: Diabetes mellitus type: type 2 Diabetic foot ulcer location: other Laterality: right Non-pressure ulcer stage: with necrosis of bone Qualified Code(s): E11.621 - Type 2 diabetes mellitus with foot ulcer; L97.514 - Non-pressure chronic ulcer of other part of right foot with necrosis of bone Category: Medical Code(s): E11.621 - Type 2 diabetes mellitus with foot ulcer; L97.509 - Non-pressure chronic ulcer of other part of unspecified foot with unspecified severity (3) Diabetes: Status: Chronic Qualifiers: Diabetes mellitus complication status: with other specified complication Diabetes mellitus terminal block assembler insulin use: with terminal block assembler use Diabetes mellitus type: type 2 Qualified Code(s): E11.69 - Type 2 diabetes mellitus with other specified complication Category: Medical Code(s): E11.9 - Type 2 diabetes mellitus without complications (4) Hypertension: Status: Chronic Qualifiers: Hypertension type: essential hypertension Qualified Code(s): I10 - Essential (primary) hypertension Category: Medical Code(s): I10 - Essential (primary) hypertension (5) Hypothyroidism: Status: Chronic Qualifiers: Hypothyroidism type: acquired Qualified Code(s): E03.9 - Hypothyroidism, unspecified Category: Medical Code(s): E03.9 - Hypothyroidism, unspecified (6) Depression: Status: Chronic Qualifiers: Depression Type: unspecified Qualified Code(s): F32.A - Depression, unspecified Category: Medical Code(s): F32.9 - Major depressive disorder, single episode, unspecified (7) Anxiety: Status: Chronic Category: Medical Code(s): F41.9 - Anxiety disorder, unspecified (8) Fibromyalgia: Status: Chronic Category: Medical Code(s): M79.7 - Fibromyalgia (9) Pre-ulcerative calluses: Status: Acute Category: Medical Code(s): L84 - Corns and callosities (10) Cellulitis of right foot: Status: Acute Category: Medical Code(s): L03.115 - Cellulitis of right lower limb (11) Decreased pedal pulses: Status: Acute Category: Medical Code(s): R09.89 - Other specified symptoms and signs involving the circulatory and respiratory systems (12) Soft tissue infection of foot: Status: Acute Category: Medical Code(s): L08.9 - Local infection of the skin and subcutaneous tissue, unspecified (13) Neuropathy: Status: Chronic Category: Medical Code(s): G62.9 - Polyneuropathy, unspecified (14) Onychoincurvatum: Status: Acute Category: Medical Code(s): L60.8 - Other nail disorders (15) Onychodystrophy: Status: Acute Category: Medical Code(s): L60.3 - Nail dystrophy (16) Keratosis: Status: Acute Category: Medical Code(s): L57.0 - Actinic keratosis (17) Diabetic foot ulcer: Status: Acute Qualifiers: Diabetes mellitus type: type 2 Diabetic foot ulcer location: heel Laterality: right Non-pressure ulcer stage: with other severity Qualified Code(s): E11.621 - Type 2 diabetes mellitus with foot ulcer; L97.418 - Non-pressure chronic ulcer of right heel and midfoot with other specified severity Category: Medical Code(s): E11.621 - Type 2 diabetes mellitus with foot ulcer; L97.509 - Non-pressure chronic ulcer of other part of unspecified foot with unspecified severity (18) Amputation of toe: Status: Acute Qualifiers: Laterality: right Qualified Code(s): S98.131A - Complete traumatic amputation of one right lesser toe, initial encounter Category: Medical Code(s): S98.139A - Complete traumatic amputation of one unspecified lesser toe, initial encounter (19) Status post amputation: Start date: 08/02/24 Problem Comment: Right fifth ray(metatarsal, toe) amputation for Osteomyelitis Status: Acute Category: Surgical Code(s): Z89.9 - Acquired absence of limb, unspecified (20) Acute osteomyelitis: Status: Acute Category: Medical Code(s): M86.10 - Other acute osteomyelitis, unspecified site Plan Patient is a 54-year-old female with past medical history of diabetes mellitus, diabetic neuropathy who presents to the hospital due to right foot pain as well as diabetic foot ulcer. 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 Patient reports pus discharge from ulcer as well as worsening pain 10/10 intensity constant, sharp. Patient otherwise denied chest pain shortness of breath nausea vomiting diarrhea constipation dysuria fevers and chills. 07/02/24: Podiatry consult Patient is a 54-year-old female that is a current podiatry patient that I recently saw in the clinic in December for a loose toenail. Patient states the wound started couple weeks ago with a blister. Patient was seen in [facility] ER at that time was given antibiotics, x-ray she stated at that time did not show bone infection. Patient was then seen last night in our [facility] ER with foot pain drainage and worsening ulceration to the right foot. X-rays have now shown acute on chronic osteomyelitis to the right foot. Patient has been kept n.p.o. after midnight. Plan for patient to be added to surgery schedule today. Verbal as well as written consent has been obtained by the patient for incision and drainage right foot, irrigation and debridement of nonviable soft tissue and bone, partial fifth metatarsal amputation (possible wound VAC application) for bone abscess. Wound culture has been obtained from the site this morning. Patient reports intense pain when compressing around the right foot ulceration and directly above the ulceration is a callus with a small 0 x 3 x 0.3 cm opening. This more than likely this may have been the start of the abscess. Patient denies any fever, nausea or vomiting. Patient was receiving IV pain medication at the time of my rounding. 07/10/24: Post Op day #8, Sx. 07/02/24: S/P Right fifth ray (metatarsal, toe) amputation, Right foot incision and drainage, Right foot wide excisional debridement, Application of ARLINE drain Plan: -Maintain dressing clean dry and intact. -Patient has bed offer [facility] swing bed. However, awaiting insurance preauthorization. -Wound cultures reveal gram-positive cocci, strep Agalactiae. Bone cultures revealed MRSA, with only intermediate coverage with vancomycin. -PICC line in place -Reviewed labs: Leukocytosis resolved from 11.3- 10.7 -Dressing was changed this morning, betadine gauze packed, dry sterile 4x4, kerlix, joan wrap Apply wound vac once at [facility]. Wound vac to right foot wounds @125mmHg medium continuous. Plan to vac changes twice weekly (Tu/Sun or Mon/Thurs). If vac has an issue that can not be trouble shoot immediately, remove and apply betadine gauze packing, dry 4x4, kerlix, joan wrap. -NWB to RLE in postop shoe with walker/wheelchair. -PICC, IV abx: abx x 3 wks total with weekly labs to monitor infection (cbc, bmp, esr, crp) faxed to PCP and Podiatry Dr Ortiz @[phone]. -Will continue to follow patient while still inpatient -IV Zyvox 600mg q12h, Levo 750mg x2 wks (07/08-10/23/24). -Pain control per hospitalist. -No plan for more surgery at this time. Discussed possibility of delayed primary closure or skin grafting once infection resolves. -She will need a post op follow up in 1 week after discharge for dressing change and skin check. -Stable from Podiatry stand point for d/c. -All orders per Dr. Ortiz Specimens:: Wound cultures reveal gram-positive cocci, strep Agalactiae (Gentamicin Resistant) Right fifth metatarsal bone culture- Staphylococcus equorum, Methicillin Resistant Staphylococcus Right foot ulcer tissue culture-Staphylococcus epidermidis, Methicillin-Resistant Staphylococcus
[2024-07-10 07:02] LABS: Chloride 85 mmol/L (98-107); Potassium 4.2 mmoL/L (3.5-5.1); Sodium 134 mmol/L (136-145)
[2024-07-10 07:05] LABS: Blood Urea Nitrogen 17 mg/dl (7-17); Creatinine Clearance Estimated 109 mL/min (50-200); Estimated Glomerular Filt Rate 58 ml/min (>60); GFR (African American) 70 ML/MIN (>60)
[2024-07-10 07:06] LABS: Glucose 94 mg/dl (74-100)
[2024-07-10 07:11] LABS: C-Reactive Protein 38.7 mg/L (0-4)
[2024-07-10 07:31] LABS: Anion Gap 11.2 mEq/L (5-15); Carbon Dioxide 42 mmol/L (22.0-30.0)
[2024-07-10 07:35] LABS: Basophils # 0.1 K/mm3 (0-0.2); Basophils % 0.9 % (0.1-2.0); Eosinophils # 0.4 K/mm3 (0.0-0.4); Hematocrit 38.5 % (37.0-47.0); Hemoglobin 12.3 g/dL (12.2-16.2); Lymphocytes # 2.1 K/mm3 (0.7-4.5); Lymphocytes % 20.6 % (10-50); Mean Corpuscular Hemoglobin 29.5 pg (27.0-31.2); Mean Corpuscular Volume 92.3 fl (81-99); Mean Platelet Volume 7.3 fl (7.4-10.4); Monocytes # 0.7 K/mm3 (0.1-1.0); Monocytes % 6.8 % (1.7-9.3); Neutrophils # 6.9 K/mm3 (1.8-7.8); Neutrophils % 67.7 % (37.0-80.0); Platelet Count 327 K/mm3 (142-424); Red Blood Count 4.17 M/mm3 (4.20-5.40); White Blood Count 10.1 K/mm3 (4.8-10.8)
[2024-07-10] MEDS: ONDANSETRON 4MG/2ML VIAL 4 MG IV ×2 (07:44→12:37)
[2024-07-10] MEDS: LINEZOLID 600 MG/300 ML IV.SOLN 300 MG IV ×2 (07:44→20:17)
[2024-07-10 08:00] VITALS: BP 117/61; PULSE 66; RESP 17; TEMP 36.6; O2SAT 94
[2024-07-10] MEDS: CARVEDILOL 25MG TABLET 25 MG PO ×2 (08:43→20:18)
[2024-07-10] MEDS: CITALOPRAM 40MG TABLET 40 MG PO (08:43)
[2024-07-10] MEDS: METHOCARBAMOL 500MG TABLET 1000 MG PO ×3 (08:44→20:17)
[2024-07-10] MEDS: FUROSEMIDE 80 MG TABLET PO ×2 (08:44→16:28)
[2024-07-10] MEDS: LISINOPRIL 2.5MG TABLET 2.5 MG PO (08:44)
[2024-07-10] MEDS: FENOFIBRATE 54MG TABLET 54 MG PO (08:44)
[2024-07-10] MEDS: ISOSORBIDE MONO 30MG TAB.ER.24H 30 MG PO (08:44)
[2024-07-10] MEDS: GABAPENTIN 400MG CAPSULE 400 MG PO ×3 (08:44→20:17)
[2024-07-10] MEDS: DULOXETINE 30MG CAPSULE.DR 60 MG PO (08:45)
[2024-07-10] MEDS: METHIMAZOLE 10 MG 0.25 EACH PO (08:59)
[2024-07-10] MEDS: humaLOG 100 UNITS/ML 10ML VIAL (SSI) SQ ×2 (11:22→20:17)
[2024-07-10 11:32] LABS: POC Glucose,Bedside 271 (70-110)
[2024-07-10 12:00] VITALS: BP 109/54; PULSE 66; RESP 17; TEMP 36.6; O2SAT 92
[2024-07-10 15:57] VITALS: BP 124/71; PULSE 66; RESP 16; TEMP 36.6; O2SAT 96
[2024-07-10] MEDS: LIDOCAINE 5% TRANSDERMAL PATCH 1 EACH TP (16:28)
[2024-07-10 16:57] LABS: POC Glucose,Bedside 111 (70-110)
--- NOTE | 2024-07-10 17:19 | EXP.ACUTE.PN ---
Subjective *Date: 07/10/24 *Time: 17:32 Interval history: Patient awake sitting up in bed upon entering room,remained stable. Pain doing well on current regimen. No nausea or vomiting. On room air. Reports some pain and tenderness to surgical right foot. Medical Exam Vital signs and Labs for Last 24 Hours: Vital Signs Temp Pulse Resp BP Pulse Ox O2 Del Method O2 Flow Rate 07/10/24 15:57 98 F 66 16 124/71 96 Nasal Cannula 07/10/24 13:00 Room Air 07/10/24 12:00 98 F 66 17 109/54 L 92 L 07/10/24 11:00 Room Air 07/10/24 09:00 Room Air 07/10/24 08:00 Room Air 07/10/24 08:00 98 F 66 17 117/61 94 L Nasal Cannula 07/10/24 06:47 Nasal Cannula 3 07/10/24 05:00 Nasal Cannula 3 07/10/24 04:00 98.2 F 64 16 104/51 L 96 Nasal Cannula 3 07/10/24 03:00 Nasal Cannula 07/10/24 01:00 Nasal Cannula 07/10/24 00:00 97.9 F 65 16 125/68 96 Nasal Cannula 3 07/09/24 22:55 Nasal Cannula 07/09/24 22:00 Nasal Cannula 3 07/09/24 21:00 Nasal Cannula 07/09/24 20:05 Nasal Cannula 3 07/09/24 20:00 98.0 F 65 18 112/59 L 95 Nasal Cannula 3 07/09/24 18:51 Nasal Cannula 2 Intake and Output 07/10/24 07/10/24 07/10/24 07:59 15:59 23:59 Intake Total 350 / 830 480 / 830 Output Total 2625 / 3825 1200 / 3825 Balance -2275 / -2995 -720 / -2995 Intake: Intake, Oral Amount 480 / 480 Intake, Total IV Amount 350 / 350 Linezolid 600 mg In 300 ml @ 300 / 300 300 mls/hr IV Q12H [facility] Rx#: [id number] Piperacillin/Tazo 3.375 gm In 0 50 / 50 .9 % Sodium Chloride 50 ml @ 100 mls/hr IV Q6H [facility] Rx#: [id number] Output: Output, Urine Amount 2625 / 3825 1200 / 3825 Other: Number of Unmeasured Voids 0 1 Weight 108.272 kg Patient Weight 07/10/24 23:59 Weight 108.272 kg Laboratory Results - last 24 hr 07/09/24 13:51: POC Glucose 98 07/09/24 16:02: POC Glucose 102 07/09/24 19:25: POC Glucose 272 H 07/09/24 21:05: POC Glucose 305 H* 07/10/24 05:48: POC Glucose 83 07/10/24 06:04: WBC 10.1, RBC 4.17 L, Hgb 12.3, Hct 38.5, MCV 92.3, MCH 29.5, MCHC 32.0, RDW 14.0, Plt Count 327, MPV 7.3 L, Neut % (Auto) 67.7, Lymph % (Auto) 20.6, [place] % (Auto) 6.8, Eos % (Auto) 4.0, Baso % (Auto) 0.9, Neut # (Auto) 6.9, Lymph # (Auto) 2.1, [place] # (Auto) 0.7, Eos # (Auto) 0.4, Baso # (Auto) 0.1, Sodium 134 L, Potassium 4.2, Chloride 85 L, Carbon Dioxide 42 H*, Anion Gap 11.2, BUN 17, Creatinine 1.00 D, Estimated Creat Clear 109, Estimated GFR 58 L, Est GFR ( Amer) 70 D, Glucose 94 D, Calcium 9.0, C-Reactive Protein 38.7 H 07/10/24 11:17: POC Glucose 271 H 07/10/24 16:49: POC Glucose 111 H I & O for Labs for Last 24 Hours: Intake & Output 07/07/24 07/08/24 07/09/24 07/10/24 23:59 23:59 23:59 23:59 Intake Total 2330 / 2330 1790 / 1790 1080 / 1430 830 / 830 Output Total 1405 / 1905 3550 / 4450 2950 / 3950 3825 / 3825 Balance 925 / 425 -1760 / -2660 -1870 / -2520 -2995 / -2995 Weight 112.672 kg 108.136 kg 109.949 kg 108.272 kg Constitutional: Present no acute distress, obese, chronically ill appearing and cooperative Head: Present atraumatic and normocephalic ENT: Present normal exam Respiratory: Present normal respiratory effort; Absent rhonchi, wheezes or crackles Cardiac: Present Reg Rate and Rhythm GI: Present soft and normal bowel sounds; Absent distention or tenderness Comment:: Right foot and postsurgical wrap. Toes exposed, warm. Absent fifth digit status post fifth metatarsal amputation. Skin: Present intact; Absent erythema Neuro: Present Grossly Intact, alert, awake, oriented x 3 and moves all extremities Assessment and Plan *Assessment and plan (1) Cellulitis of right foot: Status: Acute Category: Medical Code(s): L03.115 - Cellulitis of right lower limb (2) Osteomyelitis: Status: Acute Qualifiers: Laterality: right Osteomyelitis location: foot Osteomyelitis type: unspecified type Qualified Code(s): M86.9 - Osteomyelitis, unspecified Category: Medical Code(s): M86.9 - Osteomyelitis, unspecified (3) Diabetic foot ulcer: Status: Acute Qualifiers: Diabetic foot ulcer location: other Diabetes mellitus type: type 2 Laterality: right Non-pressure ulcer stage: with necrosis of bone Qualified Code(s): E11.621 - Type 2 diabetes mellitus with foot ulcer; L97.514 - Non-pressure chronic ulcer of other part of right foot with necrosis of bone Category: Medical Code(s): E11.621 - Type 2 diabetes mellitus with foot ulcer; L97.509 - Non-pressure chronic ulcer of other part of unspecified foot with unspecified severity (4) Neuropathy: Status: Chronic Category: Medical Code(s): G62.9 - Polyneuropathy, unspecified (5) Hypothyroidism: Status: Acute Category: Medical Code(s): E03.9 - Hypothyroidism, unspecified (6) Moderate depressive disorder: Status: Acute Category: Medical Code(s): F32.A - Depression, unspecified (7) Type 2 diabetes mellitus: Status: Chronic Qualifiers: Diabetes mellitus intermediate accountant insulin use: with intermediate accountant use Diabetes mellitus complication status: with neurologic complications Diabetes mellitus complication detail: with polyneuropathy Qualified Code(s): E11.42 - Type 2 diabetes mellitus with diabetic polyneuropathy Category: Medical Code(s): E11.9 - Type 2 diabetes mellitus without complications Plan Patient is a 54-year-old female with past medical history of diabetes mellitus, diabetic neuropathy who presents to the hospital due to right foot pain as well as diabetic foot ulcer. 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 Patient reports pus discharge from ulcer as well as worsening pain 10/10 intensity constant, sharp. Patient otherwise denied chest pain shortness of breath nausea vomiting diarrhea constipation dysuria fevers and chills. Status post I&D with amputation of fifth metatarsal of right foot. Overall doing well. Stable to discharge to rehab. Awaiting insurance approval. Problems addressed as follows: R Diabetic foot ulcer R Diabetic foot cellulitis Acute on chronic osteomyelitis of R foot ? Patient states she has had a right foot ulcer for the past few months, getting worse over the past week prior to admission. ? CT of the foot revealed acute on chronic osteomyelitis, CRP and ESR also significantly elevated. ? Patient is status post right fifth metatarsal amputation, incision and drainage, and debridement of midfoot. ? Patient continues to feel well, still endorses right foot pain. Tolerating transition to oxycodone. Continue 5 mg every 4 hours as needed for severe breakthrough pain. Monitor for toxicity. Requiring at least 3 doses daily for pain. - White count normalized at 10. Hemoglobin stable 12. Kidney function and electrolytes normal with BUN 17, creatinine 1.0. CBC, CMP, magnesium ordered for the morning. ? Continue Zyvox and Levaquin. Day 3 of 14. ? Wound cultures reveal gram-positive cocci, strep Agalactiae. Bone cultures revealed MRSA, with only intermediate coverage with vancomycin. -Discussed case with podiatry. Nonweightbearing on foot. Stable to discharge to rehab. Will follow-up as outpatient. Agree with antibiotic regimen. ? PICC line in place. ? Patient has bed offer [facility] swing bed. However, awaiting insurance preauthorization. Diabetes mellitus ?LDSSI, ACHS glucose checks Chronic medical conditions Hypertension Hypothyroidism Depression Hyperlipidemia Restless leg syndrome -Resume home medications including coreg, lisinopril, ropinirole, methimazole, Protonix, trazodone, duloxetine. ? Hold home Imdur pending improvement in blood pressures. Patient does not have a history of heart failure and is euvolemic. -Resumed Lasix. -2 L in the past 24 hours. Weaning oxygen as tolerated, currently on 2 to 3 L
--- NOTE | 2024-07-10 17:36 | PC.NURSE ---
patient has c/o of pain and treated per NOV this shift. she has c/o nausea more this shift than previous days. nausea treated per NOV and MD notified. she stated she has not had a BM today, abdomen tender and firm to palpation in the upper quadrants. glucose levels have been treated per sliding scale this shift. she was unable to eat lunch today due to nausea but is currently eating dinner. PICC dressing changed using aseptic technique, site is patent and no signs of infection. she is tolerating room air well. no further requests at this time call light within reach.
[2024-07-10 20:00] VITALS: BP 122/60; PULSE 70; RESP 18; TEMP 37.4; O2SAT 95
[2024-07-10] MEDS: INSULIN GLARGINE 100 UNITS/ML 3ML FLEXPEN 10 UNIT SQ (20:17)
[2024-07-10] MEDS: ROPINIROLE 1MG TABLET 3 MG PO (20:18)
[2024-07-10] MEDS: TRAZODONE 50MG TABLET 150 MG PO (20:18)
[2024-07-10] MEDS: PANTOPRAZOLE 40MG TABLET 40 MG PO (20:18)
[2024-07-11] VITALS (7 sets, daily range): BP systolic 95–134; BP diastolic 49–68; PULSE 64–70; RESP 16–18; TEMP 36.4–37.2; O2SAT 90–95; BMI 38.4
[2024-07-11] MEDS: HEPARIN SODIUM 5,000 UNIT/ML VIAL 5000 UNIT SQ (00:43)
[2024-07-11] MEDS: PIPERACILLIN/TAZO 3.375 GM in 0.9 % SODIUM CHLORIDE 50 ML IV ×4 (02:53→22:12)
[2024-07-11] MEDS: OXYCODONE 5MG IMMEDIATE RELEASE TABLET 5 MG PO ×3 (02:53→22:12)
--- NOTE | 2024-07-11 05:23 | PC.NURSE ---
Alert and oriented. Standby assist to bedside with walker. Purewick in place. PICC to Left upper arm, dressing changed this shift due to being saturated with blood, francis patel rn and vira yi rn examined dressing, recommended to change and check for infection or bleeding at insertion site, changed dressing and examined no active bleeding around site or sign of infection, checked dressing at this time, sponge has slight amount of bloody drainage, dressing still intact. PICC flushes easily. Complained of pain two times this shift, treated per nov. 3L NC used at patients request, O2 sat >90%, pt takes off NC from time to time, but will return it when needed. Right foot dressed and wrapped in joan bandage, CDI. BM noted this shift with no issues, abdomen soft and nontender at this time. Bowel sounds active. Call light in reach.
[2024-07-11 06:26] LABS: Chloride 90 mmol/L (98-107); Sodium 132 mmol/L (136-145)
[2024-07-11 06:27] LABS: Potassium 3.9 mmoL/L (3.5-5.1)
[2024-07-11 06:29] LABS: Blood Urea Nitrogen 24 mg/dl (7-17); Creatinine Clearance Estimated 109 mL/min (50-200); Estimated Glomerular Filt Rate 58 ml/min (>60); GFR (African American) 70 ML/MIN (>60)
[2024-07-11 06:30] LABS: Calcium 8.8 mg/dl (8.4-10.2); Glucose 122 mg/dl (74-100)
[2024-07-11 06:35] LABS: C-Reactive Protein 35.1 mg/L (0-4)
[2024-07-11 06:37] LABS: Anion Gap 9.9 mEq/L (5-15); Carbon Dioxide 36 mmol/L (22.0-30.0)
[2024-07-11 06:56] LABS: Basophils # 0.1 K/mm3 (0-0.2); Basophils % 1.4 % (0.1-2.0); Eosinophils # 0.4 K/mm3 (0.0-0.4); Hematocrit 36.8 % (37.0-47.0); Hemoglobin 12.3 g/dL (12.2-16.2); Lymphocytes # 2.1 K/mm3 (0.7-4.5); Lymphocytes % 20.1 % (10-50); Mean Corpuscular HGB Conc 33.5 g/dL (31.8-35.4); Mean Corpuscular Hemoglobin 29.7 pg (27.0-31.2); Mean Corpuscular Volume 88.7 fl (81-99); Mean Platelet Volume 7.3 fl (7.4-10.4); Monocytes # 0.7 K/mm3 (0.1-1.0); Monocytes % 6.9 % (1.7-9.3); Neutrophils # 7.1 K/mm3 (1.8-7.8); Neutrophils % 67.7 % (37.0-80.0); Platelet Count 303 K/mm3 (142-424); Red Blood Count 4.15 M/mm3 (4.20-5.40); Red Cell Distribution Width 14.1 % (11.5-17.5); White Blood Count 10.4 K/mm3 (4.8-10.8)
--- NOTE | 2024-07-11 07:57 | EXP.PHA.PN ---
Subjective *Date: 07/11/24 *Time: 07:57 Medical Exam Vital signs and Labs for Last 24 Hours: Vital Signs Temp Pulse Resp BP Pulse Ox O2 Del Method O2 Flow Rate 07/11/24 07:46 99.0 F 68 17 134/65 91 L Nasal Cannula 07/11/24 07:00 Nasal Cannula 3 07/11/24 05:00 Nasal Cannula 3 07/11/24 04:00 98.8 F 65 16 134/68 95 Nasal Cannula 3 07/11/24 02:55 Nasal Cannula 3 07/11/24 01:00 Nasal Cannula 3 07/11/24 00:00 97.6 F 68 18 132/60 93 L Nasal Cannula 3 07/10/24 22:47 Nasal Cannula 3 07/10/24 20:47 Nasal Cannula 3 07/10/24 20:00 Nasal Cannula 3 07/10/24 20:00 99.4 F 70 18 122/60 95 Nasal Cannula 3 07/10/24 18:44 Room Air 07/10/24 17:00 Room Air 07/10/24 15:57 98 F 66 16 124/71 96 Nasal Cannula 07/10/24 15:00 Room Air 07/10/24 13:00 Room Air 07/10/24 12:00 98 F 66 17 109/54 L 92 L 07/10/24 11:00 Room Air 07/10/24 09:00 Room Air 07/10/24 08:00 Room Air 07/10/24 08:00 98 F 66 17 117/61 94 L Nasal Cannula Intake and Output 07/10/24 07/10/24 07/11/24 15:59 23:59 07:59 Intake Total 840 / 2650 760 / 2650 700 / 700 Output Total 1200 / 4625 800 / 4625 1100 / 1100 Balance -360 / -1974 -40 / -1974 -400 / -400 Intake: Intake, Oral Amount 840 / 1500 360 / 1500 300 / 300 Intake, Total IV Amount 400 / 1150 400 / 400 Linezolid 600 mg In 300 ml @ 300 / 900 300 / 300 300 mls/hr IV Q12H [facility] Rx#: [id number] Piperacillin/Tazo 3.375 gm In 0 100 / 250 100 / 100 .9 % Sodium Chloride 50 ml @ 100 mls/hr IV Q6H [facility] Rx#: [id number] Output: Output, Urine Amount 1200 / 4625 800 / 4625 1100 / 1100 Other: Number of Unmeasured Voids 1 1 0 Number of Bowel Movements 1 Weight 108.409 kg Patient Weight 07/11/24 23:59 Weight 108.409 kg Laboratory Results - last 24 hr 07/10/24 06:04: WBC 10.1, RBC 4.17 L, Hgb 12.3, Hct 38.5, MCV 92.3, MCH 29.5, MCHC 32.0, RDW 14.0, Plt Count 327, MPV 7.3 L, Neut % (Auto) 67.7, Lymph % (Auto) 20.6, [place] % (Auto) 6.8, Eos % (Auto) 4.0, Baso % (Auto) 0.9, Neut # (Auto) 6.9, Lymph # (Auto) 2.1, [place] # (Auto) 0.7, Eos # (Auto) 0.4, Baso # (Auto) 0.1 07/10/24 11:17: POC Glucose 271 H 07/10/24 16:49: POC Glucose 111 H 07/11/24 05:57: WBC 10.4, RBC 4.15 L, Hgb 12.3, Hct 36.8 L, MCV 88.7, MCH 29.7, MCHC 33.5, RDW 14.1, Plt Count 303, MPV 7.3 L, Neut % (Auto) 67.7, Lymph % (Auto) 20.1, [place] % (Auto) 6.9, Eos % (Auto) 4.0, Baso % (Auto) 1.4, Neut # (Auto) 7.1, Lymph # (Auto) 2.1, [place] # (Auto) 0.7, Eos # (Auto) 0.4, Baso # (Auto) 0.1, Sodium 132 L, Potassium 3.9, Chloride 90 L, Carbon Dioxide 36 H, Anion Gap 9.9, BUN 24 H D, Creatinine 1.00, Estimated Creat Clear 109, Estimated GFR 58 L, Est GFR ( Amer) 70, Glucose 122 H D, Calcium 8.8, C-Reactive Protein 35.1 H I & O for Labs for Last 24 Hours: Intake & Output 07/08/24 07/09/24 07/10/24 07/11/24 23:59 23:59 23:59 23:59 Intake Total 1790 / 1790 1080 / 1430 1950 / 2650 700 / 700 Output Total 3550 / 4450 2950 / 3950 4625 / 4625 1100 / 1100 Balance -1760 / -2660 -1870 / -2520 -2675 / -1975 -400 / -400 Weight 108.136 kg 109.949 kg 108.272 kg 108.409 kg The patient's infection will respond to the chosen ABx?: Yes Is the patient receiving the right drug, dose, and route?: Yes Could a more targeted ABx be ordered?: No (MULTIPLE STAPH AND STREP SPP. AFEBRILE)
[2024-07-11] MEDS: CITALOPRAM 40MG TABLET 40 MG PO (08:00)
[2024-07-11] MEDS: DULOXETINE 30MG CAPSULE.DR 60 MG PO (08:00)
[2024-07-11] MEDS: FENOFIBRATE 54MG TABLET 54 MG PO (08:00)
[2024-07-11] MEDS: ISOSORBIDE MONO 30MG TAB.ER.24H 30 MG PO (08:00)
[2024-07-11] MEDS: LISINOPRIL 2.5MG TABLET 2.5 MG PO (08:00)
[2024-07-11] MEDS: FUROSEMIDE 80 MG TABLET PO (08:00)
[2024-07-11] MEDS: CARVEDILOL 25MG TABLET 25 MG PO ×2 (08:01→21:20)
[2024-07-11] MEDS: LINEZOLID 600 MG/300 ML IV.SOLN 300 MG IV ×2 (08:01→20:28)
[2024-07-11] MEDS: METHIMAZOLE 10 MG 0.25 EACH PO (08:02)
--- NOTE | 2024-07-11 10:05 | EXP.DC.SUM ---
General Admission date:: 07/01/24 Discharge date: 07/11/24 HPI HPI HPI: Patient is a 54-year-old female with past medical history of diabetes mellitus, diabetic neuropathy who presents to the hospital due to right foot pain as well as diabetic foot ulcer. 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 Patient reports pus discharge from ulcer as well as worsening pain 10/10 intensity constant, sharp. Patient otherwise denied chest pain shortness of breath nausea vomiting diarrhea constipation dysuria fevers and chills. 07/02/24: Podiatry consult Patient is a 54-year-old female that is a current podiatry patient that I recently saw in the clinic in December for a loose toenail. Patient states the wound started couple weeks ago with a blister. Patient was seen in [facility] ER at that time was given antibiotics, x-ray she stated at that time did not show bone infection. Patient was then seen last night in our [facility] ER with foot pain drainage and worsening ulceration to the right foot. X-rays have now shown acute on chronic osteomyelitis to the right foot. Patient has been kept n.p.o. after midnight. Plan for patient to be added to surgery schedule today. Verbal as well as written consent has been obtained by the patient for incision and drainage right foot, irrigation and debridement of nonviable soft tissue and bone, partial fifth metatarsal amputation (possible wound VAC application) for bone abscess. Wound culture has been obtained from the site this morning. Patient reports intense pain when compressing around the right foot ulceration and directly above the ulceration is a callus with a small 0 x 3 x 0.3 cm opening. Denies any fever, nausea or vomiting. Patient was receiving IV pain medication at the time of my rounding. Exam Data for Last 24 hours Vital signs and Labs for Last 24 Hours: Temp Pulse Resp BP Pulse Ox O2 Del Method O2 Flow Rate 99.0 F 68 17 134/65 91 L Nasal Cannula 3 07/11/24 07:46 07/11/24 07:46 07/11/24 07:46 07/11/24 07:46 07/11/24 07:46 07/11/24 08:14 07/11/24 08:14 FiO2 32 07/02/24 02:12 Laboratory Results - last 24 hr 07/10/24 11:17: POC Glucose 271 H 07/10/24 16:49: POC Glucose 111 H 07/11/24 05:57: WBC 10.4, RBC 4.15 L, Hgb 12.3, Hct 36.8 L, MCV 88.7, MCH 29.7, MCHC 33.5, RDW 14.1, Plt Count 303, MPV 7.3 L, Neut % (Auto) 67.7, Lymph % (Auto) 20.1, [place] % (Auto) 6.9, Eos % (Auto) 4.0, Baso % (Auto) 1.4, Neut # (Auto) 7.1, Lymph # (Auto) 2.1, [place] # (Auto) 0.7, Eos # (Auto) 0.4, Baso # (Auto) 0.1, Sodium 132 L, Potassium 3.9, Chloride 90 L, Carbon Dioxide 36 H, Anion Gap 9.9, BUN 24 H D, Creatinine 1.00, Estimated Creat Clear 109, Estimated GFR 58 L, Est GFR ( Amer) 70, Glucose 122 H D, Calcium 8.8, C-Reactive Protein 35.1 H I & O for Last 24 hours: Intake & Output 07/08/24 07/09/24 07/10/24 07/11/24 23:59 23:59 23:59 23:59 Intake Total 1790 / 1790 1080 / 1430 1950 / 2650 965 / 965 Output Total 3550 / 4450 2950 / 3950 4625 / 4625 1100 / 1100 Balance -1760 / -2660 -1870 / -2520 -2675 / -1975 -135 / -135 Weight 108.136 kg 109.949 kg 108.272 kg 108.409 kg Results Data Completed and Pending Labs on day of discharge: Labs from last 24 hours 07/11/24 07/10/24 07/10/24 05:57 16:49 11:17 WBC 10.4 RBC 4.15 L Hgb 12.3 Hct 36.8 L MCV 88.7 MCH 29.7 MCHC 33.5 RDW 14.1 Plt Count 303 MPV 7.3 L Neut % (Auto) 67.7 Lymph % (Auto) 20.1 [place] % (Auto) 6.9 Eos % (Auto) 4.0 Baso % (Auto) 1.4 Neut # (Auto) 7.1 Lymph # (Auto) 2.1 [place] # (Auto) 0.7 Eos # (Auto) 0.4 Baso # (Auto) 0.1 Sodium 132 L Potassium 3.9 Chloride 90 L Carbon Dioxide 36 H Anion Gap 9.9 BUN 24 H D Creatinine 1.00 Estimated Creat Clear 109 Estimated GFR 58 L Est GFR ( Amer) 70 Glucose 122 H D POC Glucose 111 H 271 H Calcium 8.8 C-Reactive Protein 35.1 H DS: Diagnosis Discharge Diagnosis (1) Cellulitis of right foot: Status: Acute Code(s): L03.115 - Cellulitis of right lower limb (2) Osteomyelitis: Status: Acute Code(s): M86.9 - Osteomyelitis, unspecified Qualifiers: Laterality: right Osteomyelitis location: foot Osteomyelitis type: unspecified type Qualified Code(s): M86.9 - Osteomyelitis, unspecified (3) Diabetic foot ulcer: Status: Acute Code(s): E11.621 - Type 2 diabetes mellitus with foot ulcer; L97.509 - Non-pressure chronic ulcer of other part of unspecified foot with unspecified severity Qualifiers: Diabetes mellitus type: type 2 Diabetic foot ulcer location: other Laterality: right Non-pressure ulcer stage: with necrosis of bone Qualified Code(s): E11.621 - Type 2 diabetes mellitus with foot ulcer; L97.514 - Non-pressure chronic ulcer of other part of right foot with necrosis of bone (4) Neuropathy: Status: Chronic Code(s): G62.9 - Polyneuropathy, unspecified (5) Hypothyroidism: Status: Acute Code(s): E03.9 - Hypothyroidism, unspecified (6) Moderate depressive disorder: Status: Acute Code(s): F32.A - Depression, unspecified (7) Type 2 diabetes mellitus: Status: Chronic Code(s): E11.9 - Type 2 diabetes mellitus without complications Qualifiers: Diabetes mellitus complication detail: with polyneuropathy Diabetes mellitus complication status: with neurologic complications 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 Qualified Code(s): E11.42 - Type 2 diabetes mellitus with diabetic polyneuropathy Meds Home Medications and Allergies Home Medications ?Medication ?Instructions ?Recorded ?Confirmed ?Type flash glucose sensor 05/04/22 07/06/24 History flash glucose scanning reader 08/14/22 07/06/24 History (FreeStyle Joelle 14 Day Nolan) carvedilol 25 mg tablet 25 mg PO BID High blood pressure 02/15/23 07/01/24 Rx 90 days #180 tabs duloxetine 60 mg capsule,delayed 60 mg PO DAILY MOOD #90 caps 02/15/23 07/01/24 Rx release escitalopram oxalate 20 mg tablet 20 mg PO DAILY Depression #90 tabs 02/15/23 07/01/24 Rx fenofibrate 54 mg tablet 54 mg PO DAILY Cholesterol #90 tabs 02/15/23 07/01/24 Rx insulin glargine 100 unit/mL (3 10 unit (0.1 mL) SQ HS Diabetes 02/15/23 07/01/24 Rx mL) subcutaneous pen #15 mL lisinopril 2.5 mg tablet 2.5 mg PO DAILY Hypertension #90 02/15/23 07/01/24 Rx tabs methocarbamol 1,000 mg tablet 1,000 mg PO TID muscle spasms #90 04/16/23 07/01/24 Rx tabs semaglutide 1 mg/dose (4 mg/3 mL) 2 mg SQ WEEKLY Diabetes 04/16/23 07/02/24 History subcutaneous pen injector flash glucose sensor (NearVerseyle #1 ea 06/15/23 07/06/24 Rx Joelle 14 Day Sensor kit) gabapentin 400 mg capsule 400 mg PO TID NEUROPATHY 07/01/24 07/01/24 History furosemide 40 mg tablet 40 mg PO BID 07/02/24 07/02/24 History hydroxyzine pamoate 25 mg capsule 25 mg PO TID PRN Panic Disorder 07/02/24 07/02/24 History insulin NPH-regular 70-30 U-100 60 unit SQ BID 07/02/24 07/02/24 History insulin 100 unit/mL subcutaneous pen (Humulin 70/30 U-100 Tonya) isosorbide dinitrate 30 mg tablet 30 mg PO BID 07/02/24 07/02/24 History methimazole 5 mg tablet 2.5 mg PO DAILY 07/02/24 07/02/24 History pantoprazole 40 mg tablet,delayed 40 mg PO DAILY 07/02/24 07/02/24 History release ropinirole 3 mg tablet 3 mg PO HS 07/02/24 07/02/24 History tizanidine 4 mg tablet 4 mg PO BID PRN Myalgia 07/02/24 07/02/24 History trazodone 150 mg tablet 150 mg PO HS 07/02/24 07/02/24 History New Prescriptions to Start Prescriptions: Allergies Allergy/AdvReac Type Severity Reaction Status Date / Time ceftriaxone [From ROCEPHIN] Allergy Unknown Verified 01/23/24 14:56 droperidol [From INAPSINE] Allergy Unknown Verified 01/23/24 14:56 ibuprofen [IBUPROFEN] Allergy Unknown Verified 01/23/24 14:56 moxifloxacin [From AVELOX] Allergy Unknown Verified 01/23/24 14:56 Discharge Plan Disposition Patient Disposition: Xfer SNF Condition: Fair Follow up Plan Follow up with: Linn Montana APRN [Primary Care Provider] - Enter time for follow up Moira Ortiz DPM [Staff Physician] - Enter time for follow up Prescriptions/Medication Reconciliation: No Action insulin glargine 100 unit/mL (3 mL) insulin pen 10 unit SQ HS Qty: 15 2RF carvedilol 25 mg tablet 25 mg PO BID 90 Days Qty: 180 2RF duloxetine 60 mg capsule,delayed release(DR/EC) 60 mg PO DAILY Qty: 90 2RF escitalopram oxalate 20 mg tablet 20 mg PO DAILY Qty: 90 2RF fenofibrate 54 mg tablet 54 mg PO DAILY Qty: 90 2RF lisinopril 2.5 mg tablet 2.5 mg PO DAILY Qty: 90 2RF (DME) FreeStyle Joelle 14 Day Sensor Kit See Rx Instructions .ROUTE .COMPLEX Qty: 1 0RF Dose Instruction: DIRECTED Rx Instructions: DIRECTED (DME) flash glucose sensor 1 EACH kit See Rx Instructions .Route CONT Rx Instructions: change sensor every 14 days (DME) FreeStyle Joelle 14 Day Nolan Misc See Rx Instructions .Route Rx Instructions: As directed gabapentin 400 mg capsule 400 mg PO TID furosemide 40 mg tablet 40 mg PO BID Patient Comments: TAKE ONE TABLET BY MOUTH TWICE DAILY FOR 90 DAYS ropinirole 3 mg tablet 3 mg PO HS Patient Comments: TAKE ONE TABLET BY MOUTH NIGHTLY AT BEDTIME trazodone 150 mg tablet 150 mg PO HS Patient Comments: TAKE ONE TABLET BY MOUTH NIGHTLY AT BEDTIME pantoprazole 40 mg tablet,delayed release (DR/EC) 40 mg PO DAILY Humulin 70/30 U-100 KwikPen 100 unit/mL (70-30) insulin pen 60 unit SQ BID tizanidine 4 mg tablet 4 mg PO BID PRN (Reason: Myalgia) Patient Comments: TAKE ONE TABLET BY MOUTH TWICE DAILY NEEDED FOR 30 DAYS isosorbide dinitrate 30 mg tablet 30 mg PO BID Patient Comments: TAKE ONE TABLET BY MOUTH TWICE DAILY FOR 90 DAYS methimazole 5 mg tablet 2.5 mg PO DAILY Patient Comments: TAKE 1/2 TABLET BY MOUTH EVERY DAY hydroxyzine pamoate 25 mg capsule 25 mg PO TID PRN (Reason: Panic Disorder) Patient Comments: Take 1 capsule 3 times a day by oral route as needed for 30 days. methocarbamol 1,000 mg tablet 1,000 mg PO TID Qty: 90 2RF semaglutide 1 mg/dose (4 mg/3 mL) pen injector 2 mg SQ WEEKLY Problem Reconciliation Problems Reviewed?: Yes Patient Discharge Instructions ACTIVITY: Limited activity DIET: continue same diet Additional Instructions: non weight bearing on right foot Patient Instructions: Diabetic Foot Ulcer, DI for Osteomyelitis, DI for Surgical Site Infection, DI for Incision and Drainage Print Language: Icelandic Providers Primary Care Provider: Linn Montana Admit Provider: Celso Rolon Attending Provider: Celso Rolon
[2024-07-11] MEDS: humaLOG 100 UNITS/ML 10ML VIAL (SSI) SQ ×2 (10:54→21:21)
--- NOTE | 2024-07-11 11:37 | P.PN_ITS ---
Subjective *Date: 07/11/24 *Time: 15:44 Interval history: Had some mild nausea overnight. No chest pain or shortness of breath. Tolerating weaning of oxygen. On 1 L this morning on rounds. Wore 3 to 4 L while asleep overnight. Diuresing well. Complaining of burning pain in her right leg. Medical Exam Vital signs and Labs for Last 24 Hours: Vital Signs Temp Pulse Resp BP Pulse Ox O2 Del Method O2 Flow Rate 07/11/24 10:04 Nasal Cannula 1 07/11/24 08:14 Nasal Cannula 3 07/11/24 08:00 Nasal Cannula 3 07/11/24 07:46 99.0 F 68 17 134/65 91 L Nasal Cannula 07/11/24 07:00 Nasal Cannula 3 07/11/24 05:00 Nasal Cannula 3 07/11/24 04:00 98.8 F 65 16 134/68 95 Nasal Cannula 3 07/11/24 02:55 Nasal Cannula 3 07/11/24 01:00 Nasal Cannula 3 07/11/24 00:00 97.6 F 68 18 132/60 93 L Nasal Cannula 3 07/10/24 22:47 Nasal Cannula 3 07/10/24 20:47 Nasal Cannula 3 07/10/24 20:00 Nasal Cannula 3 07/10/24 20:00 99.4 F 70 18 122/60 95 Nasal Cannula 3 07/10/24 18:44 Room Air 07/10/24 17:00 Room Air 07/10/24 15:57 98 F 66 16 124/71 96 Nasal Cannula 07/10/24 15:00 Room Air 07/10/24 13:00 Room Air 07/10/24 12:00 98 F 66 17 109/54 L 92 L Intake and Output 07/10/24 07/11/24 07/11/24 23:59 07:59 15:59 Intake Total 760 / 2650 700 / 965 265 / 965 Output Total 800 / 4625 1100 / 1100 Balance -40 / -1975 -400 / -135 265 / -135 Intake: Intake, Oral Amount 360 / 1500 300 / 565 265 / 565 Intake, Total IV Amount 400 / 1150 400 / 400 Linezolid 600 mg In 300 ml @ 300 / 900 300 / 300 300 mls/hr IV Q12H [facility] Rx#: [id number] Piperacillin/Tazo 3.375 gm In 0 100 / 250 100 / 100 .9 % Sodium Chloride 50 ml @ 100 mls/hr IV Q6H [facility] Rx#: [id number] Output: Output, Urine Amount 800 / 4625 1100 / 1100 Other: Number of Unmeasured Voids 1 0 Number of Bowel Movements 1 Weight 108.409 kg Patient Weight 07/11/24 23:59 Weight 108.409 kg Laboratory Results - last 24 hr 07/10/24 16:49: POC Glucose 111 H 07/11/24 05:57: WBC 10.4, RBC 4.15 L, Hgb 12.3, Hct 36.8 L, MCV 88.7, MCH 29.7, MCHC 33.5, RDW 14.1, Plt Count 303, MPV 7.3 L, Neut % (Auto) 67.7, Lymph % (Auto) 20.1, [place] % (Auto) 6.9, Eos % (Auto) 4.0, Baso % (Auto) 1.4, Neut # (Auto) 7.1, Lymph # (Auto) 2.1, [place] # (Auto) 0.7, Eos # (Auto) 0.4, Baso # (Auto) 0.1, Sodium 132 L, Potassium 3.9, Chloride 90 L, Carbon Dioxide 36 H, Anion Gap 9.9, BUN 24 H D, Creatinine 1.00, Estimated Creat Clear 109, Estimated GFR 58 L, Est GFR ( Amer) 70, Glucose 122 H D, Calcium 8.8, C-Reactive Protein 35.1 H I & O for Labs for Last 24 Hours: Intake & Output 07/08/24 07/09/24 07/10/24 07/11/24 23:59 23:59 23:59 23:59 Intake Total 1790 / 1790 1080 / 1430 1950 / 2650 965 / 965 Output Total 3550 / 4450 2950 / 3950 4625 / 4625 1100 / 1100 Balance -1760 / -2660 -1870 / -2520 -5 / -1974 -135 / -135 Weight 108.136 kg 109.949 kg 108.272 kg 108.409 kg Constitutional: Present no acute distress, obese, chronically ill appearing and cooperative Head: Present atraumatic and normocephalic ENT: Present normal exam Respiratory: Present normal respiratory effort; Absent rhonchi, wheezes or crackles Cardiac: Present Reg Rate and Rhythm GI: Present soft and normal bowel sounds; Absent distention or tenderness Comment:: Right foot and postsurgical wrap. Toes exposed, warm. Absent fifth digit status post fifth metatarsal amputation. Skin: Present intact; Absent erythema Neuro: Present Grossly Intact, alert, awake, oriented x 3 and moves all extremities Additional Findings:: Pain pump in place in right lower back Assessment and Plan *Assessment and plan (1) Cellulitis of right foot: Status: Acute Category: Medical Code(s): L03.115 - Cellulitis of right lower limb (2) Osteomyelitis: Status: Acute Qualifiers: Laterality: right Osteomyelitis location: foot Osteomyelitis type: unspecified type Qualified Code(s): M86.9 - Osteomyelitis, unspecified Category: Medical Code(s): M86.9 - Osteomyelitis, unspecified (3) Diabetic foot ulcer: Status: Acute Qualifiers: Diabetic foot ulcer location: other Diabetes mellitus type: type 2 Laterality: right Non-pressure ulcer stage: with necrosis of bone Qualified Code(s): E11.621 - Type 2 diabetes mellitus with foot ulcer; L97.514 - Non- pressure chronic ulcer of other part of right foot with necrosis of bone Category: Medical Code(s): E11.621 - Type 2 diabetes mellitus with foot ulcer; L97.509 - Non-pressure chronic ulcer of other part of unspecified foot with unspecified severity (4) Neuropathy: Status: Chronic Category: Medical Code(s): G62.9 - Polyneuropathy, unspecified (5) Hypothyroidism: Status: Acute Category: Medical Code(s): E03.9 - Hypothyroidism, unspecified (6) Moderate depressive disorder: Status: Acute Category: Medical Code(s): F32.A - Depression, unspecified (7) Type 2 diabetes mellitus: Status: Chronic Qualifiers: Diabetes mellitus fdc insulin use: with fdc use Diabetes mellitus complication status: with neurologic complications Diabetes mellitus complication detail: with polyneuropathy Qualified Code(s): E11.42 - Type 2 diabetes mellitus with diabetic polyneuropathy Category: Medical Code(s): E11.9 - Type 2 diabetes mellitus without complications Plan Patient is a 54-year-old female with past medical history of diabetes mellitus, diabetic neuropathy who presents to the hospital due to right foot pain as well as diabetic foot ulcer. 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 Patient reports pus discharge from ulcer as well as worsening pain 10/10 intensity constant, sharp. Patient otherwise denied chest pain shortness of breath nausea vomiting diarrhea constipation dysuria fevers and chills. Status post I&D with amputation of fifth metatarsal of right foot. Overall doing well. Stable to discharge to rehab. Awaiting insurance approval. Problems addressed as follows: R Diabetic foot ulcer R Diabetic foot cellulitis Acute on chronic osteomyelitis of R foot ? Patient states she has had a right foot ulcer for the past few months, getting worse over the past week prior to admission. ? CT of the foot revealed acute on chronic osteomyelitis, CRP and ESR also sig nificantly elevated. ? Patient is status post right fifth metatarsal amputation, incision and drainage, and debridement of midfoot. ? Patient continues to feel well, still endorses right foot pain. pain burning, increase gabapentin to 600mg TID; decrease oxycodone 5 mg BID as needed for severe breakthrough pain. Monitor for toxicity. Requiring at least 2 doses daily for pain. - White count 10. Hemoglobin stable 12. Kidney function and electrolytes normal with BUN 24, creatinine 1.0. CBC, CMP, magnesium ordered for the morning. ? Continue Zyvox and Levaquin. Day 4 of 14. ? Wound cultures reveal gram-positive cocci, strep Agalactiae. Bone cultures revealed MRSA, with only intermediate coverage with vancomycin. -Discussed case with podiatry. Nonweightbearing on foot. Stable to discharge to rehab. Will follow-up as outpatient. Agree with antibiotic regimen. ? PICC line in place. - wound vac placed today by wound. ? Patient has bed offer [facility] swing bed. However, awaiting insurance preauthorization. Diabetes mellitus ?LDSSI, ACHS glucose checks - Morning glucose 122 Chronic medical conditions Hypertension Hypothyroidism Depression Hyperlipidemia Restless leg syndrome -Resume home medications including coreg, lisinopril, ropinirole, methimazole, Protonix, trazodone, duloxetine. ?Hold home Imdur pending improvement in blood pressures. Patient does not have a history of heart failure and is euvolemic. - cont. Lasix, decreased to 80mg PO daily. -2 L in the past 24 hours. Weaning oxygen as tolerated, currently on 1L when awake, 3 L at night
[2024-07-11] MEDS: METHOCARBAMOL 500MG TABLET 1000 MG PO ×2 (11:38→21:20)
[2024-07-11] MEDS: GABAPENTIN 600MG TABLET 600 MG PO ×2 (11:38→21:19)
[2024-07-11 13:40] LABS: POC Glucose,Bedside 182 (70-110)
--- NOTE | 2024-07-11 14:13 | HMH.PTWOUND ---
Rehab Inpt Wound Evaluation Rehab IP Wound Evaluation Start: 07/11/24 11:09 Freq: ONCE Status: Active Protocol: Document 07/11/24 14:07 GREER (Rec: 07/11/24 14:13 PHOTREY [id number]) Rehab PT Wound Assessment Subjective Subjective 54 yowf adm to [facility] with DFU with osteomyelitis requiring surgery to excise the R LE 5th MT. She presents with betadine soaked gauze packing at this time for wound VAC dressing application. OR was 07/02/24. 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 mellitus with Charcot 's joint arthropathy Type 2 diabetes mellitus Diabetic foot B TKA Wound Right Foot Wound Type Incision Is This a Chronic Wound Yes Wound Length (cm) 6.3 Wound Width (cm) 4.0 Wound Depth (cm) 1.8 Wound Bed Appearance Dusky Red Percentage Granulated (%) 100 Wound Margins Description Well Defined Surrounding Tissue Appearance Blanched/Dull Wound Drainage Description Serosanguineous Drainage Amount Moderate Drainage Odor No Odor Wound Topical Solution/Irrigant Saline Irrigant Packing Type Woundvac Sponge Primary Dressing Transparent Drape Wound Secondary Dressing Type Gauze Roll/Wrap,Elastic Bandage Wound Debridement Method Gauze,Mechanical Wound Debridement Amount of Tissue None Removed Dressing Change Patient Tolerance Tolerated Well Drain Right Lateral Foot Drain Type Woundvac Drainage Description Serosanguineous Odor None/Absent Vacuum Pressure Setting (mmHg) 125 Vacuum Mode Setting Continuous Wound Vac Serial Number [id number] Plan/Recommendation Comment Plan for continued wound VAC dressing changes as needed until pt is medically ready for d/c. Current dressing scheduled to be changed Sunday07/14/24. Eval Complexity Eval Charge Codes 18536 - High Complexity PHYSICIAN CERTIFICATION: I certify the specified therapy services for Seema Delacruz are required, authorized, and reviewed every 30 days.
--- NOTE | 2024-07-11 15:23 | PC.NURSE ---
Wound vac machine in place to right foot. This wound vac is to be switched out for one to take home at time of d/c.
[2024-07-11 16:07] LABS: POC Glucose,Bedside 174 (70-110)
[2024-07-11 20:41] LABS: POC Glucose,Bedside 232 (70-110)
[2024-07-11] MEDS: PANTOPRAZOLE 40MG TABLET 40 MG PO (21:19)
[2024-07-11] MEDS: ROPINIROLE 1MG TABLET 3 MG PO (21:20)
[2024-07-11] MEDS: TRAZODONE 50MG TABLET 150 MG PO (21:20)
[2024-07-11] MEDS: INSULIN GLARGINE 100 UNITS/ML 3ML FLEXPEN 10 UNIT SQ (21:21)
[2024-07-12] VITALS (10 sets, daily range): BP systolic 108–134; BP diastolic 59–79; PULSE 66–75; RESP 15–17; TEMP 36.8–38.5; O2SAT 91–97; BMI 39.2
[2024-07-12] MEDS: HEPARIN SODIUM 5,000 UNIT/ML VIAL 5000 UNIT SQ ×3 (00:52→17:43)
[2024-07-12] MEDS: PIPERACILLIN/TAZO 3.375 GM in 0.9 % SODIUM CHLORIDE 50 ML IV (02:52)
--- NOTE | 2024-07-12 04:14 | PC.NURSE ---
54 yo female pt is A/O X 4. Dressing changed to PIC line site after bleeding/seeping through bandage. Pt has wound vac to R foot, with no drainage noted in canister. Pt reports pain at 7 early in shift. Medicated with oxycodone per NOV. Pt reports pain only down to 5 but she slept soundly after med administered. FSBS was 232 at 9 pm, requiring 7 units of insulin. She has tolerated diet. 02 was increased to 3 liters as pt slept, 02 dropped to the high 80s with 2 liters. Noted pt having sleep apnea. Antibiotics administered per NOV
[2024-07-12 06:14] LABS: POC Glucose,Bedside 137 (70-110)
[2024-07-12 06:53] LABS: Basophils # 0.1 K/mm3 (0-0.2); Basophils % 0.6 % (0.1-2.0); Eosinophils # 0.3 K/mm3 (0.0-0.4); Eosinophils % 2.7 % (0.1-12.0); Hematocrit 34.4 % (37.0-47.0); Hemoglobin 11.6 g/dL (12.2-16.2); Lymphocytes % 16.4 % (10-50); Mean Corpuscular HGB Conc 33.6 g/dL (31.8-35.4); Mean Corpuscular Hemoglobin 29.9 pg (27.0-31.2); Mean Corpuscular Volume 89.1 fl (81-99); Mean Platelet Volume 7.3 fl (7.4-10.4); Monocytes # 0.8 K/mm3 (0.1-1.0); Neutrophils # 8.8 K/mm3 (1.8-7.8); Neutrophils % 73.3 % (37.0-80.0); Platelet Count 315 K/mm3 (142-424); Red Blood Count 3.86 M/mm3 (4.20-5.40); Red Cell Distribution Width 14.2 % (11.5-17.5)
[2024-07-12 06:55] LABS: Chloride 91 mmol/L (98-107); Potassium 4.1 mmoL/L (3.5-5.1); Sodium 132 mmol/L (136-145)
[2024-07-12 06:58] LABS: Blood Urea Nitrogen 23 mg/dl (7-17); Calcium 8.7 mg/dl (8.4-10.2); Creatinine Clearance Estimated 101 mL/min (50-200); Estimated Glomerular Filt Rate 52 ml/min (>60); GFR (African American) 62 ML/MIN (>60); Glucose 133 mg/dl (74-100)
--- NOTE | 2024-07-12 07:01 | EXP.ACUTE.PN ---
Subjective *Date: 07/12/24 *Time: 13:33 Interval history: Had some mild nausea overnight. No chest pain or shortness of breath. Tolerating weaning of oxygen. On 1 L this morning on rounds. Wore 2-3 L while asleep overnight. Diuresing well. Complaining of burning pain in her right leg. Medical Exam Vital signs and Labs for Last 24 Hours: Vital Signs Temp Pulse Resp BP Pulse Ox O2 Del Method O2 Flow Rate 07/12/24 06:48 Nasal Cannula 3 07/12/24 05:00 Nasal Cannula 3 07/12/24 04:00 99.3 F 71 16 134/70 91 L Nasal Cannula 3 07/12/24 03:00 Nasal Cannula 2 07/12/24 01:00 Nasal Cannula 2 07/12/24 00:00 99.2 F 75 16 117/62 93 L Nasal Cannula 2 07/11/24 23:00 Nasal Cannula 2 07/11/24 21:00 Nasal Cannula 2 07/11/24 20:00 94 L Nasal Cannula 2 07/11/24 19:41 98.3 F 70 18 121/60 94 L Nasal Cannula 2 07/11/24 18:17 Nasal Cannula 2 07/11/24 17:00 Nasal Cannula 2 07/11/24 16:00 97.6 F 64 17 95/49 L 94 L Nasal Cannula 07/11/24 14:13 Nasal Cannula 2 07/11/24 12:57 Nasal Cannula 2 07/11/24 12:00 98.5 F 65 16 123/63 90 L Nasal Cannula 07/11/24 10:04 Nasal Cannula 1 07/11/24 08:14 Nasal Cannula 3 07/11/24 08:00 Nasal Cannula 3 07/11/24 07:46 99.0 F 68 17 134/65 91 L Nasal Cannula Intake and Output 07/11/24 07/11/24 07/12/24 15:59 23:59 07:59 Intake Total 825 / 1525 Output Total 250 / 1350 750 / 750 Balance 825 / 175 -250 / 175 -750 / -750 Intake: Intake, Oral Amount 475 / 775 Intake, Total IV Amount 350 / 750 Linezolid 600 mg In 300 ml @ 300 / 600 300 mls/hr IV Q12H [facility] Rx#: [id number] Piperacillin/Tazo 3.375 gm In 0 50 / 150 .9 % Sodium Chloride 50 ml @ 100 mls/hr IV Q6H [facility] Rx#: [id number] Output: Output, Urine Amount 250 / 1350 750 / 750 Other: Number of Unmeasured Voids 0 Number of Bowel Movements 1 Weight 110.767 kg Patient Weight 07/12/24 23:59 Weight 110.767 kg Laboratory Results - last 24 hr 07/11/24 10:38: POC Glucose 182 H 07/11/24 15:59: POC Glucose 174 H 07/11/24 20:10: POC Glucose 232 H 07/12/24 06:07: POC Glucose 137 H 07/12/24 06:33: WBC 12.0 H, RBC 3.86 L, Hgb 11.6 L, Hct 34.4 L, MCV 89.1, MCH 29.9, MCHC 33.6, RDW 14.2, Plt Count 315, MPV 7.3 L, Neut % (Auto) 73.3, Lymph % (Auto) 16.4, [place] % (Auto) 7.0, Eos % (Auto) 2.7, Baso % (Auto) 0.6, Neut # (Auto) 8.8 H, Lymph # (Auto) 2.0, [place] # (Auto) 0.8, Eos # (Auto) 0.3, Baso # (Auto) 0.1, Sodium 132 L, Potassium 4.1, Chloride 91 L I & O for Labs for Last 24 Hours: Intake & Output 07/09/24 07/10/24 07/11/24 07/12/24 23:59 23:59 23:59 23:59 Intake Total 1080 / 1430 1950 / 2650 1525 / 1525 Output Total 2950 / 3950 4625 / 4625 1350 / 1350 750 / 750 Balance -1870 / -2520 -5 / -1975 175 / 175 -750 / -750 Weight 109.949 kg 108.272 kg 108.409 kg 110.767 kg Constitutional: Present no acute distress, obese, chronically ill appearing and cooperative Head: Present atraumatic and normocephalic ENT: Present normal exam Respiratory: Present normal respiratory effort; Absent rhonchi, wheezes or crackles Cardiac: Present Reg Rate and Rhythm GI: Present soft and normal bowel sounds; Absent distention or tenderness Comment:: Right foot and postsurgical wrap. Toes exposed, warm. Absent fifth digit status post fifth metatarsal amputation. Wound VAC in place Skin: Present intact; Absent erythema Neuro: Present Grossly Intact, alert, awake, oriented x 3 and moves all extremities Additional Findings:: Pain pump in place in right lower back Assessment and Plan *Assessment and plan (1) Cellulitis of right foot: Status: Acute Category: Medical Code(s): L03.115 - Cellulitis of right lower limb (2) Osteomyelitis: Status: Acute Qualifiers: Laterality: right Osteomyelitis location: foot Osteomyelitis type: unspecified type Qualified Code(s): M86.9 - Osteomyelitis, unspecified Category: Medical Code(s): M86.9 - Osteomyelitis, unspecified (3) Diabetic foot ulcer: Status: Acute Qualifiers: Diabetic foot ulcer location: other Diabetes mellitus type: type 2 Laterality: right Non-pressure ulcer stage: with necrosis of bone Qualified Code(s): E11.621 - Type 2 diabetes mellitus with foot ulcer; L97.514 - Non-pressure chronic ulcer of other part of right foot with necrosis of bone Category: Medical Code(s): E11.621 - Type 2 diabetes mellitus with foot ulcer; L97.509 - Non-pressure chronic ulcer of other part of unspecified foot with unspecified severity (4) Neuropathy: Status: Chronic Category: Medical Code(s): G62.9 - Polyneuropathy, unspecified (5) Hypothyroidism: Status: Acute Category: Medical Code(s): E03.9 - Hypothyroidism, unspecified (6) Moderate depressive disorder: Status: Acute Category: Medical Code(s): F32.A - Depression, unspecified (7) Type 2 diabetes mellitus: Status: Chronic Qualifiers: Diabetes mellitus nursing home insulin use: with nursing home use Diabetes mellitus complication status: with neurologic complications Diabetes mellitus complication detail: with polyneuropathy Qualified Code(s): E11.42 - Type 2 diabetes mellitus with diabetic polyneuropathy Category: Medical Code(s): E11.9 - Type 2 diabetes mellitus without complications Plan Patient is a 54-year-old female with past medical history of diabetes mellitus, diabetic neuropathy who presents to the hospital due to right foot pain as well as diabetic foot ulcer. 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 Patient reports pus discharge from ulcer as well as worsening pain 10/10 intensity constant, sharp. Patient otherwise denied chest pain shortness of breath nausea vomiting diarrhea constipation dysuria fevers and chills. Status post I&D with amputation of fifth metatarsal of right foot. Overall doing well. Stable to discharge to rehab. Has been accepted at bed not available until Sunday. Insurance approval process late yesterday afternoon. Problems addressed as follows: R Diabetic foot ulcer R Diabetic foot cellulitis Acute on chronic osteomyelitis of R foot ? Patient states she has had a right foot ulcer for the past few months, getting worse over the past week prior to admission. ? CT of the foot revealed acute on chronic osteomyelitis, CRP and ESR also significantly elevated. ? Patient is status post right fifth metatarsal amputation, incision and drainage, and debridement of midfoot. ? Patient continues to feel well, still endorses right foot pain. pain burning, increase gabapentin to 600mg TID; decrease oxycodone 5 mg BID as needed for severe breakthrough pain. Monitor for toxicity. Requiring at least 2 doses daily for pain. - White count slightly up today to 12. Remains afebrile. Hemoglobin stable 12. Kidney function and electrolytes normal with BUN 23, creatinine 1.1. CBC, CMP, magnesium ordered for the morning. ? Continue Zyvox and Levaquin. Day 5 of 14. ? Wound cultures reveal gram-positive cocci, strep Agalactiae. Bone cultures revealed MRSA, with only intermediate coverage with vancomycin. -Discussed case with podiatry. Nonweightbearing on foot. Stable to discharge to rehab. Will follow-up as outpatient. Agree with antibiotic regimen. ? PICC line in place. wound vac placed 07/11/2024 ? Patient accepted to [facility] for swing bed. Insurance approval came through late yester afternoon. Patient cannot be admitted to swing bed until Sunday. Diabetes mellitus ?LDSSI, ACHS glucose checks - Morning glucose 133 -Receiving approximately 12 units of short acting insulin daily. Tolerating 10 units insulin glargine. Increase to 15 units insulin glargine. Monitor for short acting needs. Chronic medical conditions Hypertension Hypothyroidism Depression Hyperlipidemia Restless leg syndrome -Resume home medications including coreg, lisinopril, ropinirole, methimazole, Protonix, trazodone, duloxetine. ?Hold home Imdur pending improvement in blood pressures. Patient does not have a history of heart failure and is euvolemic. - cont. Lasix, decreased to 80mg PO daily. -2 L in the past 24 hours. Weaning oxygen as tolerated, currently on 1L when awake, 3 L at night
[2024-07-12 07:04] LABS: C-Reactive Protein 38.3 mg/L (0-4)
[2024-07-12 07:05] LABS: Anion Gap 6.1 mEq/L (5-15); Carbon Dioxide 39 mmol/L (22.0-30.0)
[2024-07-12] MEDS: OXYCODONE 5MG IMMEDIATE RELEASE TABLET 5 MG PO ×2 (08:16→18:25)
[2024-07-12] MEDS: LINEZOLID 600 MG/300 ML IV.SOLN 300 MG IV ×2 (08:17→20:55)
[2024-07-12] MEDS: CITALOPRAM 40MG TABLET 40 MG PO (08:18)
[2024-07-12] MEDS: FUROSEMIDE 80 MG TABLET PO (08:18)
[2024-07-12] MEDS: LISINOPRIL 2.5MG TABLET 2.5 MG PO (08:18)
[2024-07-12] MEDS: METHOCARBAMOL 500MG TABLET 1000 MG PO ×3 (08:18→20:57)
[2024-07-12] MEDS: GABAPENTIN 600MG TABLET 600 MG PO ×3 (08:18→20:56)
[2024-07-12] MEDS: CARVEDILOL 25MG TABLET 25 MG PO ×2 (08:18→20:56)
[2024-07-12] MEDS: ISOSORBIDE MONO 30MG TAB.ER.24H 30 MG PO (08:18)
[2024-07-12] MEDS: FENOFIBRATE 54MG TABLET 54 MG PO (08:19)
[2024-07-12] MEDS: DULOXETINE 30MG CAPSULE.DR 60 MG PO (08:19)
[2024-07-12] MEDS: METHIMAZOLE 10 MG 0.25 EACH PO (08:20)
[2024-07-12] MEDS: LEVOFLOXACIN/D5W 750 MG/150 ML 750 MG/150 ML PIGGYBACK 100 MG IV (10:12)
[2024-07-12 11:42] LABS: POC Glucose,Bedside 162 (70-110)
[2024-07-12] MEDS: humaLOG 100 UNITS/ML 10ML VIAL (SSI) SQ ×2 (11:50→21:24)
[2024-07-12] MEDS: LIDOCAINE 5% TRANSDERMAL PATCH 1 EACH TP (13:48)
[2024-07-12] MEDS: ACETAMINOPHEN 325MG TAB 650 MG PO (15:39)
[2024-07-12] MEDS: ONDANSETRON 4MG/2ML VIAL 4 MG IV ×2 (15:39→21:58)
--- NOTE | 2024-07-12 15:51 | XR_ITS ---
PROCEDURE INFORMATION: Exam: XR Chest Exam date and time: 07/12/2024 4:00 PM Age: 54 years old Clinical indication: Shortness of breath; Additional info: Continued o2 requirement TECHNIQUE: Imaging protocol: Radiologic exam of the chest. Views: 1 view. COMPARISON: CR XR CHEST PORTABLE PICC PLAC 07/03/2024 2:20 PM FINDINGS: Lungs: Bibasilar atelectasis or scarring again evident. No new consolidation, significant effusion or pulmonary edema. Pleural spaces: Unremarkable. No pleural effusion. No pneumothorax. Heart/Mediastinum: Unremarkable. No cardiomegaly. Tip of right PICC line remains in the SVC. Bones/joints: Unremarkable. IMPRESSION: Bibasilar atelectasis or scarring again evident. No new consolidation, significant effusion or pulmonary edema.
--- NOTE | 2024-07-12 16:27 | CT_ITS ---
PROCEDURE INFORMATION: Exam: CT Right Lower Extremity, Foot Exam date and time: 07/12/2024 5:19 PM Age: 54 years old Clinical indication: Swelling, leg or foot; Additional info: Swelling of ft, concern for infection @ surg site TECHNIQUE: Imaging protocol: CT of the right lower extremity without contrast was performed. Exam focused on the foot. Radiation optimization: All CT scans at this facility use at least one of these dose optimization techniques: automated exposure control; mA and/or kV adjustment per patient size (includes targeted exams where dose is matched to clinical indication); or iterative reconstruction. COMPARISON: CT FOOT RT W CON 07/01/2024 7:40 PM FINDINGS: Bones/joints: Interval amputation of the 5th ray. Tiny bony fragments in bits of soft tissue gas in the surgical bed there is gas within the overlying wound. Diffuse infiltration of the surrounding soft tissues. No definable abscess on limited nonenhanced study however findings are suspicious for active infection. Calcaneal spurring limited degenerative change. Soft tissues: See Bones/joints finding. IMPRESSION: Interval amputation of the 5th ray. Tiny bony fragments and bits of soft tissue gas in the surgical bed as well as gas within the overlying wound. Diffuse infiltration of the surrounding soft tissues. No definable abscess on limited nonenhanced study however findings are suspicious for active infection.
--- NOTE | 2024-07-12 16:29 | EXP.EVENT.NO ---
Patient developed a few to one 1.3 this afternoon. Obtaining blood cultures. Obtained chest x-ray that does not show significant change in consolidation per my review. Has chronic scarring in right lower lung. PICC line site appears clean. Does have some oozing but no signs of erythema or infection. Right heel is warm. Will obtain CT of foot. Continuing Zyvox and levofloxacin. Of note, patient complaining of abdominal discomfort. Has had nausea for days. Having loose stools. All this is likely secondary to antibiotics, if has torsten diarrhea, will send panel to evaluate for C. difficile given her significant antibiotic exposure.
--- NOTE | 2024-07-12 17:37 | PC.NURSE ---
Pt has had multiple c/o leg and back pain this shift, has been medicated per NOV. Pt called out because she was having chills and nausea this evening, Temp was 101.3 and zofran was given. Called MD Silverio for tylenol and to notify of fever, he also ordered blood cultures, chest x-ray and CT of foot. Temp now 98.6. Dressing on right foot was changed this shift, wound vac noted with little drainage. PICC line dressing changed due to it being saturated, some oozing noted but MD not concerned for any infection at site. Pt up with assist x1 to bedside commode. pt now resting in bed with no complaints at this time.
[2024-07-12 17:47] LABS: POC Glucose,Bedside 124 (70-110)
[2024-07-12] MEDS: ROPINIROLE 1MG TABLET 3 MG PO (20:56)
[2024-07-12] MEDS: TRAZODONE 50MG TABLET 150 MG PO (20:56)
[2024-07-12] MEDS: PANTOPRAZOLE 40MG TABLET 40 MG PO (20:56)
[2024-07-12] MEDS: INSULIN GLARGINE 100 UNITS/ML 3ML FLEXPEN 15 UNIT SQ (21:25)
[2024-07-12 21:40] LABS: POC Glucose,Bedside 180 (70-110)
[2024-07-13] MEDS: HEPARIN SODIUM 5,000 UNIT/ML VIAL 5000 UNIT SQ ×3 (00:25→16:28)
[2024-07-13 04:00] VITALS: BP 124/59; PULSE 70; RESP 17; TEMP 37.5; O2SAT 89; BMI 39.7
--- NOTE | 2024-07-13 04:00 | PC.NURSE ---
During 04:00 vital sign assessment, patient's oxygen saturations started to drop to 87% on 2 L of oxygen via nasal cannula. Patient's oxygen flow was bumped to 3 L of oxygen (baseline for sleep). Her oxygen saturations increased to and maintained 89%. Marcial PROPULSION ENGINEER was paged for any suggested interventions. He stated that due to her condition and history, he is not worried about her maintaining a consistent 89%, especially during a deep sleep. No new orders were obtained at this time. Patient has not voiced any concerns or appear to be in any distress. She is currently resting with eyes closed and respirations even and unlabored. Other vital signs remained relatively stable.
--- NOTE | 2024-07-13 05:00 | PC.NURSE ---
Patient is alert and oriented x4. Patient was observed to have eyes closed, respirations even and unlabored, and no apparent distress throughout the majority of the night. Patient was given a full bath yesterday evening. To have a bowel movement, she pivoted from the bed using a walker and standby assistance from nurse to ease herself onto the bedside commode; patient had one moderately-formed bowel movement this shift. She has also remained on a purewick; urine output has been emptied and documented accordingly. Patient has mild pitting edema in both of her legs; hyperpigmentation was also noticed. Patient's dressing and wound vac remain in place to her right foot; right foot has remained elevated higher than left. Little to no drainage was noticed in the wound vac. Patient has not reported any significant pain this shift, other than with movement. PICC line is in place to the left upper arm and has been free of drainage or redness this shift. Upon auscultation, patient's lung sounds were clear, S1/S2 heart sounds could be heard, and her bowel sounds were active. Patient's oxygen saturations noticed to drop below 90% at around 04:00 (see prior note); this was cleared and informed to Marcial. Patient is currently resting comfortably on 3 L of oxygen via nasal cannula; she was bumped from 2 L of oxygen. Apart from decreased oxygen sats, other vital signs have remained relatively stable this shift. She has received her scheduled medications per NOV, including insulin glargine and IV antibiotics. She was given zofran once per MAR earlier this shift due to nausea; patient reported relief after receiving. She was given chocolate pudding and a salad for a bedtime snack. At this time, she is resting in bed with head elevated. No acute changes noted thus far. Call light within reach.
[2024-07-13 06:00] LABS: POC Glucose,Bedside 110 (70-110)
[2024-07-13 07:17] LABS: Basophils # 0.1 K/mm3 (0-0.2); Basophils % 0.6 % (0.1-2.0); Eosinophils # 0.2 K/mm3 (0.0-0.4); Hematocrit 36.2 % (37.0-47.0); Lymphocytes # 2.2 K/mm3 (0.7-4.5); Lymphocytes % 17.3 % (10-50); Mean Corpuscular HGB Conc 33.1 g/dL (31.8-35.4); Mean Corpuscular Hemoglobin 29.6 pg (27.0-31.2); Mean Corpuscular Volume 89.2 fl (81-99); Mean Platelet Volume 7.2 fl (7.4-10.4); Monocytes # 0.7 K/mm3 (0.1-1.0); Monocytes % 5.8 % (1.7-9.3); Neutrophils # 9.3 K/mm3 (1.8-7.8); Neutrophils % 74.4 % (37.0-80.0); Platelet Count 285 K/mm3 (142-424); Red Blood Count 4.06 M/mm3 (4.20-5.40); Red Cell Distribution Width 14.1 % (11.5-17.5); White Blood Count 12.5 K/mm3 (4.8-10.8)
[2024-07-13 07:43] LABS: Alanine Aminotransferase 14 U/L (12-78); Albumin Level 3.2 g/dl (3.5-5.0); Albumin/Globulin Ratio 0.8 (1.1-1.8); Alkaline Phosphatase 76 U/L (38-126); Aspartate Amino Transferase 28 U/L (14-36); Bilirubin,Total 0.7 mg/dl (0.2-1.3); Blood Urea Nitrogen 23 mg/dl (7-17); Calcium 8.7 mg/dl (8.4-10.2); Chloride 92 mmol/L (98-107); Creatinine Clearance Estimated 102 mL/min (50-200); Estimated Glomerular Filt Rate 52 ml/min (>60); GFR (African American) 62 ML/MIN (>60); Globulin 3.9 g/dL (1.3-3.2); Glucose 102 mg/dl (74-100); Potassium 3.9 mmoL/L (3.5-5.1); Sodium 130 mmol/L (136-145); Total Protein,Serum 7.1 g/dl (6.3-8.2)
[2024-07-13] MEDS: LINEZOLID 600 MG/300 ML IV.SOLN 300 MG IV ×2 (07:44→20:37)
[2024-07-13 07:49] LABS: Anion Gap 4.9 mEq/L (5-15); Carbon Dioxide 37 mmol/L (22.0-30.0)
[2024-07-13 08:00] VITALS: BP 123/62; PULSE 70; RESP 19; TEMP 37.2; O2SAT 94
[2024-07-13] MEDS: CITALOPRAM 40MG TABLET 40 MG PO (08:15)
[2024-07-13] MEDS: GABAPENTIN 600MG TABLET 600 MG PO (08:15)
[2024-07-13] MEDS: FUROSEMIDE 80 MG TABLET PO (08:15)
[2024-07-13] MEDS: FENOFIBRATE 54MG TABLET 54 MG PO (08:15)
[2024-07-13] MEDS: LISINOPRIL 2.5MG TABLET 2.5 MG PO (08:15)
[2024-07-13] MEDS: CARVEDILOL 25MG TABLET 25 MG PO ×2 (08:15→20:37)
[2024-07-13] MEDS: ISOSORBIDE MONO 30MG TAB.ER.24H 30 MG PO (08:15)
[2024-07-13] MEDS: METHOCARBAMOL 500MG TABLET 1000 MG PO ×3 (08:15→20:37)
[2024-07-13] MEDS: DULOXETINE 30MG CAPSULE.DR 60 MG PO (08:16)
[2024-07-13] MEDS: METHIMAZOLE 10 MG 0.25 EACH PO (08:42)
--- NOTE | 2024-07-13 08:46 | P.PN_ITS ---
Subjective *Date: 07/13/24 *Time: 11:42 Interval history: No fever overnight. Continues to have burning in leg. Denies nausea this morning. No chest pain or shortness of breath. Stable oxygen requirement Medical Exam Vital signs and Labs for Last 24 Hours: Vital Signs Temp Pulse Resp BP Pulse Ox O2 Del Method O2 Flow Rate 07/13/24 08:00 99 F 70 19 123/62 94 L Room Air 07/13/24 06:50 Nasal Cannula 3 07/13/24 05:00 Nasal Cannula 3 07/13/24 04:00 99.5 F 70 17 124/59 L 89 L Nasal Cannula 3 07/13/24 03:00 Nasal Cannula 2 07/13/24 01:00 Nasal Cannula 2 07/12/24 23:57 98.9 F 66 17 113/61 92 L Nasal Cannula 2 07/12/24 23:00 Nasal Cannula 2 07/12/24 21:00 Nasal Cannula 2 07/12/24 20:00 75 17 92 L Nasal Cannula 2 07/12/24 19:36 98.5 F 75 17 127/66 92 L Nasal Cannula 2 07/12/24 17:51 Nasal Cannula 2 07/12/24 17:00 Nasal Cannula 2 07/12/24 16:00 98.6 F 68 16 129/68 97 Nasal Cannula 3 07/12/24 15:08 101.3 F H 07/12/24 15:00 Nasal Cannula 2 07/12/24 13:00 Nasal Cannula 2 07/12/24 11:44 98.3 F 72 16 114/59 L 93 L Room Air 07/12/24 11:00 Nasal Cannula 2 07/12/24 09:00 Nasal Cannula 2 Intake and Output 07/12/24 07/13/24 07/13/24 23:59 07:59 15:59 Intake Total 100 / 1160 420 / 420 Output Total 1450 / 2200 0 / 0 Balance -1350 / -1040 420 / 420 Intake: Intake, Oral Amount 100 / 860 120 / 120 Infusion Intake 300 / 300 Linezolid 600 mg In 300 ml @ 300 / 300 300 mls/hr IV Q12H [facility] Rx#: [id number] Output: Output, Urine Amount 1450 / 2200 0 / 0 Other: Number of Unmeasured Voids 1 1 Number of Bowel Movements 1 1 Weight 112.219 kg Patient Weight 07/13/24 23:59 Weight 112.219 kg Laboratory Results - last 24 hr 07/12/24 11:35: POC Glucose 162 H 07/12/24 17:40: POC Glucose 124 H 07/12/24 21:01: POC Glucose 180 H 07/13/24 05:51: POC Glucose 110 07/13/24 06:57: WBC 12.5 H, RBC 4.06 L, Hgb 12.0 L, Hct 36.2 L, MCV 89.2, MCH 29.6, MCHC 33.1, RDW 14.1, Plt Count 285, MPV 7.2 L, Neut % (Auto) 74.4, Lymph % (Auto) 17.3, [place] % (Auto) 5.8, Eos % (Auto) 2.0, Baso % (Auto) 0.6, Neut # (Auto) 9.3 H, Lymph # (Auto) 2.2, [place] # (Auto) 0.7, Eos # (Auto) 0.2, Baso # (Auto) 0.1, Sodium 130 L, Potassium 3.9, Chloride 92 L, Carbon Dioxide 37 H, Anion Gap 4.9 L, BUN 23 H, Creatinine 1.10 H, Estimated Creat Clear 102, Estimated GFR 52 L, Est GFR ( Amer) 62, Glucose 102 H, Calcium 8.7, Total Bilirubin 0.7, AST 28, ALT 14, Alkaline Phosphatase 76, Total Protein 7.1, Albumin 3.2 L, Globulin 3.9 H, Albumin/Globulin Ratio 0.8 L I & O for Labs for Last 24 Hours: Intake & Output 07/10/24 07/11/24 07/12/24 07/13/24 23:59 23:59 23:59 23:59 Intake Total 1950 / 2650 1525 / 1525 740 / 1160 420 / 420 Output Total 4625 / 4625 1350 / 1350 2200 / 2200 0 / 0 Balance -2675 / -1975 175 / 175 -1460 / -1040 420 / 420 Weight 108.272 kg 108.409 kg 110.767 kg 112.219 kg Constitutional: Present no acute distress, obese, chronically ill appearing and cooperative Head: Present atraumatic and normocephalic ENT: Present normal exam Respiratory: Present normal respiratory effort; Absent rhonchi, wheezes or crackles Cardiac: Present Reg Rate and Rhythm GI: Present soft and normal bowel sounds; Absent distention or tenderness Comment:: Right foot and postsurgical wrap. Toes exposed, warm. Absent fifth digit status post fifth metatarsal amputation. Wound VAC in place; slight increase in warmth of lower extremity on right side distal to knee. No increased erythema Skin: Present intact; Absent erythema Neuro: Present Grossly Intact, alert, awake, oriented x 3 and moves all extremities Additional Findings:: Pain pump in place in right lower back Assessment and Plan *Assessment and plan (1) Cellulitis of right foot: Status: Acute Category: Medical Code(s): L03.115 - Cellulitis of right lower limb (2) Osteomyelitis: Status: Acute Qualifiers: Laterality: right Osteomyelitis location: foot Osteomyelitis type: unspecified type Qualified Code(s): M86.9 - Osteomyelitis, unspecified Category: Medical Code(s): M86.9 - Osteomyelitis, unspecified (3) Diabetic foot ulcer: Status: Acute Qualifiers: Diabetes mellitus type: type 2 Diabetic foot ulcer location: other Laterality: right Non-pressure ulcer stage: with necrosis of bone Qualified Code(s): E11.621 - Type 2 diabetes mellitus with foot ulcer; L97.514 - Non- pressure chronic ulcer of other part of right foot with necrosis of bone Category: Medical Code(s): E11.621 - Type 2 diabetes mellitus with foot ulcer; L97.509 - Non-pressure chronic ulcer of other part of unspecified foot with unspecified severity (4) Neuropathy: Status: Chronic Category: Medical Code(s): G62.9 - Polyneuropathy, unspecified (5) Hypothyroidism: Status: Acute Category: Medical Code(s): E03.9 - Hypothyroidism, unspecified (6) Moderate depressive disorder: Status: Acute Category: Medical Code(s): F32.A - Depression, unspecified (7) Type 2 diabetes mellitus: Status: Chronic Qualifiers: Diabetes mellitus complication detail: with polyneuropathy Diabetes mellitus complication status: with neurologic complications Diabetes mellitus long wall mining machine tender insulin use: with long wall mining machine tender use Qualified Code(s): E11.42 - Type 2 diabetes mellitus with diabetic polyneuropathy Category: Medical Code(s): E11.9 - Type 2 diabetes mellitus without complications Plan Patient is a 54-year-old female with past medical history of diabetes mellitus, diabetic neuropathy who presents to the hospital due to right foot pain as well as diabetic foot ulcer. According to patient she follows up with talent engineer at . Patient reports pus discharge from ulcer as well as worsening pain 10/10 intensity constant, sharp. Patient otherwise denied chest pain shortness of breath nausea vomiting diarrhea constipation dysuria fevers and chills. Status post I&D with amputation of fifth metatarsal of right foot. Has developed fever over the past 24 hours. Podiatry to reevaluate in the morning. Continues to require inpatient management. Has been accepted to rehab, bed not available until Sunday. Problems addressed as follows: R Diabetic foot ulcer R Diabetic foot cellulitis Acute on chronic osteomyelitis of R foot ? Patient states she has had a right foot ulcer for the past few months, getting worse over the past week prior to admission. ? CT of the foot revealed acute on chronic osteomyelitis, CRP and ESR also significantly elevated. ? Patient is status post right fifth metatarsal amputation, incision and drainage, and debridement of midfoot. ? Patient continues to feel well, still endorses right foot pain. pain burning, increase gabapentin to 600mg TID; decrease oxycodone 5 mg BID as needed for severe breakthrough pain. Monitor for toxicity. Requiring at least 2 doses daily for pain. -Tylenol 650 mg p.o. every 4 hours as needed for fever - White count stable but elevated at 12.5. Fever yesterday to 101. Hemoglobin stable 12. Kidney function and electrolytes normal with BUN 23, creatinine 1.1. CBC, CMP, magnesium ordered for the morning. -CRP pending for the morning ? Continue Zyvox and Levaquin. Day 6 of 14. ? Wound cultures reveal gram-positive cocci, strep Agalactiae. Bone cultures revealed MRSA, with only intermediate coverage with vancomycin. -Discussed case with podiatry. Nonweightbearing on foot. Stable to discharge to rehab. Will follow-up as outpatient. Agree with antibiotic regimen. ? PICC line in place. wound vac placed 07/11/2024 ? Patient accepted to [facility] for swing bed. Insurance approval came through late Sunday. Patient cannot be admitted to swing bed until Sunday. Diabetes mellitus ?LDSSI, ACHS glucose checks - Morning glucose 133 -Receiving approximately 12 units of short acting insulin daily. Tolerating 10 units insulin glargine. Increase to 15 units insulin glargine. Monitor for short acting needs. Neuropathy: increase gabapentin to 800mg 3 times a day due to continued burning pain. Monitor for toxicity. Chronic medical conditions Hypertension Hypothyroidism Depression Hyperlipidemia Restless leg syndrome -Continue medications including coreg, lisinopril, ropinirole, methimazole, Protonix, trazodone, duloxetine. ? resumed home Imdur 30 mg daily. - cont. Lasix, 80mg PO daily. Weaning oxygen as tolerated, currently on 1L when awake, 3 L at night
[2024-07-13] MEDS: LEVOFLOXACIN/D5W 750 MG/150 ML 750 MG/150 ML PIGGYBACK 100 MG IV (09:32)
[2024-07-13 11:00] LABS: POC Glucose,Bedside 178 (70-110)
[2024-07-13] MEDS: humaLOG 100 UNITS/ML 10ML VIAL (SSI) SQ ×2 (11:01→20:35)
--- NOTE | 2024-07-13 11:19 | PC.NURSE ---
PICC line dressing changed using aseptic technique due to oosing around the dressing. pt stated that this has been happening due to her being kind of allergic to the bandaid . JEREMÍAS stated the same in report this am. no active bleeding or oozing noted around the line when old dressing was removed. skin around dressing appeared slightly red. pt has no complaints at this time.
[2024-07-13 12:00] VITALS: BP 136/64; PULSE 68; RESP 15; TEMP 37.1; O2SAT 95
[2024-07-13] MEDS: GABAPENTIN 800MG TABLET 800 MG PO ×2 (13:46→20:37)
[2024-07-13] MEDS: LIDOCAINE 5% TRANSDERMAL PATCH 1 EACH TP (13:46)
[2024-07-13] MEDS: OXYCODONE 5MG IMMEDIATE RELEASE TABLET 5 MG PO ×2 (13:50→21:03)
[2024-07-13] MEDS: ACETAMINOPHEN 325MG TAB 650 MG PO (15:57)
[2024-07-13 16:00] VITALS: BP 99/42; PULSE 63; RESP 16; TEMP 37.5; O2SAT 94
[2024-07-13 16:01] LABS: POC Glucose,Bedside 105 (70-110)
--- NOTE | 2024-07-13 17:03 | PC.NURSE ---
pt is resting supine in bed. a &ox4. pt picc line dressing was changed this shift using aseptic technique due to it oozing around bandage. dressing to rt foot c/d/i with wound vac attached @125. scant amount of bloody drainage noted in canister. pt has complained of pain numerous times in her rt foot and back. treated per nov. bm this shift. pt received a bath and hair wash this shift. fsbs at 1100 was 178 and 105 at 1630. treated with insulin per nov. tolerated 2L NC with sats >90%. purewick in place. pt requires x2 assistance to pivot to bedside. no complaints at this time. bed in low and locked position, call light within reach.
[2024-07-13 18:10] VITALS: O2SAT 91
[2024-07-13 20:00] VITALS: BP 113/68; PULSE 72; RESP 17; TEMP 37.2; O2SAT 93
[2024-07-13] MEDS: INSULIN GLARGINE 100 UNITS/ML 3ML FLEXPEN 15 UNIT SQ (20:35)
[2024-07-13] MEDS: PANTOPRAZOLE 40MG TABLET 40 MG PO (20:37)
[2024-07-13] MEDS: ROPINIROLE 1MG TABLET 3 MG PO (20:38)
[2024-07-13] MEDS: TRAZODONE 50MG TABLET 150 MG PO (20:38)
[2024-07-13 22:03] LABS: POC Glucose,Bedside 217 (70-110)
[2024-07-14] VITALS (22 sets, daily range): BP systolic 89–149; BP diastolic 43–83; PULSE 62–74; RESP 12–19; TEMP 36.5–37.3; O2SAT 91–95; BMI 40.1
[2024-07-14] MEDS: HEPARIN SODIUM 5,000 UNIT/ML VIAL 5000 UNIT SQ (00:10)
--- NOTE | 2024-07-14 04:49 | PC.NURSE ---
Patient is alert and oriented x4. However, patient was noticed to have a couple sporadic episodes of sudden drowsiness, nodding into a deep sleep, and oddities of behavior this shift. Patient was observed to have eyes closed, respirations even and unlabored on 3 L of oxygen via nasal cannula, and no apparent distress through the majority of the night. She has been pivoting with her walker (non weight-bearing on her right foot) at the bedside to use the bedside commode for bowel movements. Stool has been observed to be formed and soft. Purewick is in place while patient is in bed. However, mild excoriation was noted in her perineal area; barrier cream has been applied. Urine output has been emptied and documented accordingly. Patient has moderate pitting edema and some hyperpigmentation in both of her legs. Her PICC line dressing was changed (at 21:15) this shift; oozing and mild skin breakdown was noticed around the dressing. PICC line, located in the left upper arm, remains patent. Upon auscultation, her lung sounds were clear, S1/S2 heart sounds could be heard, and bowel sounds were very active. Vital signs have been stable; oxygen sats have remained > 90% this shift. Patient has received her scheduled medications per MAR, along with IV antibiotics and insulin coverage. She has received one dose of oxycodone per MAR this shift for a reported burning sensation in her right foot; REILLY wrap and wound vac also remain intact to right foot. Little to no drainage was noticed in the wound vac. Patient has not had any further reports of pain and has been able to rest after receiving pain medication. Both of her legs have also remained elevated while in bed. At this time, patient is resting supine. She does not have any further complaints. No acute changes noted thus far. Call light within reach.
[2024-07-14 06:03] LABS: POC Glucose,Bedside 104 (70-110)
[2024-07-14 06:38] LABS: Basophils # 0.1 K/mm3 (0-0.2); Basophils % 0.4 % (0.1-2.0); Eosinophils # 0.2 K/mm3 (0.0-0.4); Eosinophils % 1.9 % (0.1-12.0); Hematocrit 33.1 % (37.0-47.0); Hemoglobin 11.2 g/dL (12.2-16.2); Lymphocytes # 1.4 K/mm3 (0.7-4.5); Lymphocytes % 11.7 % (10-50); Mean Corpuscular HGB Conc 33.9 g/dL (31.8-35.4); Mean Corpuscular Volume 88.5 fl (81-99); Mean Platelet Volume 7.2 fl (7.4-10.4); Monocytes # 0.6 K/mm3 (0.1-1.0); Monocytes % 5.1 % (1.7-9.3); Neutrophils # 9.8 K/mm3 (1.8-7.8); Neutrophils % 80.9 % (37.0-80.0); Platelet Count 272 K/mm3 (142-424); Red Blood Count 3.74 M/mm3 (4.20-5.40); Red Cell Distribution Width 14.4 % (11.5-17.5); White Blood Count 12.1 K/mm3 (4.8-10.8)
--- NOTE | 2024-07-14 06:41 | P.PN_ITS ---
Subjective *Date: 07/14/24 *Time: 08:08 Interval history: Patient sitting up in chair, just finished breakfast. She is afebrile, having some loose stools due to the antibiotics. She reports pain in her Right bottom of foot and when touched causes intense pain. Dr. Ortiz reviewed xrays with the patient and plan to take her back to the OR later today to flush out the site, I&D,debridement of nonviable soft tissue and bone, bone biopsy and wound VAC placement. Patient is made n.p.o. at this time. Ortho Exam (Inpt) Vital signs and Labs for Last 24 Hours: Temp Pulse Resp BP Pulse Ox O2 Del Method O2 Flow Rate 98.5 F 69 17 124/55 L 92 L Nasal Cannula 3 07/14/24 04:00 07/14/24 04:00 07/14/24 04:00 07/14/24 04:00 07/14/24 04:00 07/14/24 05:00 07/14/24 05:00 FiO2 8 07/13/24 19:07 Laboratory Results - last 24 hr 07/13/24 06:57: WBC 12.5 H, RBC 4.06 L, Hgb 12.0 L, Hct 36.2 L, MCV 89.2, MCH 29.6, MCHC 33.1, RDW 14.1, Plt Count 285, MPV 7.2 L, Neut % (Auto) 74.4, Lymph % (Auto) 17.3, [place] % (Auto) 5.8, Eos % (Auto) 2.0, Baso % (Auto) 0.6, Neut # (Auto) 9.3 H, Lymph # (Auto) 2.2, [place] # (Auto) 0.7, Eos # (Auto) 0.2, Baso # (Auto) 0.1, Sodium 130 L, Potassium 3.9, Chloride 92 L, Carbon Dioxide 37 H, Anion Gap 4.9 L, BUN 23 H, Creatinine 1.10 H, Estimated Creat Clear 102, Estimated GFR 52 L, Est GFR ( Amer) 62, Glucose 102 H, Calcium 8.7, Total Bilirubin 0.7, AST 28, ALT 14, Alkaline Phosphatase 76, Total Protein 7.1, Albumin 3.2 L, Globulin 3.9 H, Albumin/Globulin Ratio 0.8 L 07/13/24 10:53: POC Glucose 178 H 07/13/24 15:54: POC Glucose 105 07/13/24 19:32: POC Glucose 217 H 07/14/24 05:51: POC Glucose 104 07/14/24 06:11: WBC 12.1 H, RBC 3.74 L, Hgb 11.2 L, Hct 33.1 L, MCV 88.5, MCH 30.0, MCHC 33.9, RDW 14.4, Plt Count 272, MPV 7.2 L, Neut % (Auto) 80.9 H, Lymph % (Auto) 11.7, [place] % (Auto) 5.1, Eos % (Auto) 1.9, Baso % (Auto) 0.4, Neut # (Auto) 9.8 H, Lymph # (Auto) 1.4, [place] # (Auto) 0.6, Eos # (Auto) 0.2, Baso # (Auto) 0.1 I & O for Labs for Last 24 Hours: Intake & Output 07/11/24 07/12/24 07/13/24 07/14/24 23:59 23:59 23:59 23:59 Intake Total 1525 / 1525 740 / 740 2480 / 2480 540 / 540 Output Total 1350 / 1350 2200 / 2200 350 / 350 300 / 300 Balance 175 / 175 -1460 / -1460 2130 / 2130 240 / 240 Weight 239 lb 244 lb 3.2 oz 247 lb 6.4 oz 249 lb 9.6 oz Microbiology Reports for the Last 24 Hours: Microbiology 07/12/24 16:35 Blood Blood Culture - Preliminary NO GROWTH AFTER 24 HOURS 07/12/24 16:45 Blood Blood Culture - Preliminary NO GROWTH AFTER 24 HOURS Head: Present normocephalic Eyes: Present as per HPI Neck: Present trachea midline Respiratory: Present normal respiratory effort and able to speak in complete sentences Cardiac: Present posterior tibial pulses present and pedal pulses present Comments:: deferred Rectal (female): Present deferred (female): Present deferred Extremities: Present tenderness (surgical site, Right 5th met amputation, had some purulent drainage with removal of wound vac.), normal capillary refill and edema (edema improving ); Absent calf tenderness Muscle Strength (Extremity): Patient Baseline Skin: Present warm, normal turgor and wounds (s/p 07/02/24 Right foot I&D, 5th ray amputation) Neuro: Present oriented x 3 and moves all extremities Ankle: right: swelling (trace ankle edema ) Feet/Toes: right: swelling (trace pedal edema; 1+ today), right: tenderness (s/p Right 5th met, toe amputation, tender) and right: decreased ROM Assessment and Plan *Assessment and plan (1) Osteomyelitis: Status: Acute Qualifiers: Laterality: right Osteomyelitis location: foot Osteomyelitis type: unspecified type Qualified Code(s): M86.9 - Osteomyelitis, unspecified Category: Medical Code(s): M86.9 - Osteomyelitis, unspecified (2) Diabetic foot ulcer: Status: Acute Qualifiers: Diabetes mellitus type: type 2 Diabetic foot ulcer location: other Laterality: right Non-pressure ulcer stage: with necrosis of bone Qualified Code(s): E11.621 - Type 2 diabetes mellitus with foot ulcer; L97.514 - Non- pressure chronic ulcer of other part of right foot with necrosis of bone Category: Medical Code(s): E11.621 - Type 2 diabetes mellitus with foot ulcer; L97.509 - Non-pressure chronic ulcer of other part of unspecified foot with unspecified severity (3) Diabetes: Status: Chronic Qualifiers: Diabetes mellitus complication status: with other specified complication Diabetes mellitus long term care social worker insulin use: with assisted use Diabetes mellitus type: type 2 Qualified Code(s): E11.69 - Type 2 diabetes mellitus with other specified complication Category: Medical Code(s): E11.9 - Type 2 diabetes mellitus without complications (4) Hypertension: Status: Chronic Qualifiers: Hypertension type: essential hypertension Qualified Code(s): I10 - Essential (primary) hypertension Category: Medical Code(s): I10 - Essential (primary) hypertension (5) Hypothyroidism: Status: Chronic Qualifiers: Hypothyroidism type: acquired Qualified Code(s): E03.9 - Hypothyroidism, unspecified Category: Medical Code(s): E03.9 - Hypothyroidism, unspecified (6) Depression: Status: Chronic Qualifiers: Depression Type: unspecified Qualified Code(s): F32.A - Depression, unspecified Category: Medical Code(s): F32.9 - Major depressive disorder, single episode, unspecified (7) Anxiety: Status: Chronic Category: Medical Code(s): F41.9 - Anxiety disorder, unspecified (8) Fibromyalgia: Status: Chronic Category: Medical Code(s): M79.7 - Fibromyalgia (9) Pre-ulcerative calluses: Status: Acute Category: Medical Code(s): L84 - Corns and callosities (10) Cellulitis of right foot: Status: Acute Category: Medical Code(s): L03.115 - Cellulitis of right lower limb (11) Decreased pedal pulses: Status: Acute Category: Medical Code(s): R09.89 - Other specified symptoms and signs involving the circulatory and respiratory systems (12) Soft tissue infection of foot: Status: Acute Category: Medical Code(s): L08.9 - Local infection of the skin and subcutaneous tissue, unspecified (13) Neuropathy: Status: Chronic Category: Medical Code(s): G62.9 - Polyneuropathy, unspecified (14) Onychoincurvatum: Status: Acute Category: Medical Code(s): L60.8 - Other nail disorders (15) Onychodystrophy: Status: Acute Category: Medical Code(s): L60.3 - Nail dystrophy (16) Keratosis: Status: Acute Category: Medical Code(s): L57.0 - Actinic keratosis (17) Diabetic foot ulcer: Status: Acute Qualifiers: Diabetes mellitus type: type 2 Diabetic foot ulcer location: heel Laterality: right Non-pressure ulcer stage: with other severity Qualified Code(s): E11.621 - Type 2 diabetes mellitus with foot ulcer; L97.418 - Non- pressure chronic ulcer of right heel and midfoot with other specified severity Category: Medical Code(s): E11.621 - Type 2 diabetes mellitus with foot ulcer; L97.509 - Non-pressure chronic ulcer of other part of unspecified foot with unspecified severity (18) Amputation of toe: Status: Acute Qualifiers: Laterality: right Qualified Code(s): S98.131A - Complete traumatic amputation of one right lesser toe, initial encounter Category: Medical Code(s): S98.139A - Complete traumatic amputation of one unspecified lesser toe, initial encounter (19) Status post amputation: Start date: 08/02/24 Problem Comment: Right fifth ray(metatarsal, toe) amputation for Osteomyelitis Status: Acute Category: Surgical Code(s): Z89.9 - Acquired absence of limb, unspecified (20) Acute osteomyelitis: Status: Acute Category: Medical Code(s): M86.10 - Other acute osteomyelitis, unspecified site Plan Patient is a 54-year-old female with past medical history of diabetes mellitus, diabetic neuropathy who presents to the hospital due to right foot pain as well as diabetic foot ulcer. According to patient she follows up with lens silverer at . Patient reports pus discharge from ulcer as well as worsening pain 10/10 intensity constant, sharp. Patient otherwise denied chest pain shortness of breath nausea vomiting. She has had some loose stools r/t antibiotics. She developed a fever over the weekend and blood cultures were drawn, and no growth showing at this time. She is afebrile this morning at 98.[address] was done on her Right foot showing some changes, plan to reevaluate her this morning. 07/14/24: Post Op day #12, Sx. 07/02/24: S/P Right fifth ray (metatarsal, toe) amputation, Right foot incision and drainage, Right foot wide excisional debridement, Application of ARLINE drain Plan: -Make patient NPO now -Wound vac was removed -Site cleaned with betadine swabs, new betadine gauze, kerlix and joan applied -Plan to take patient back to the OR later today approximately 1430, due to eating breakfast this morning. -Patient has bed offer [facility] swing bed and now has approval to be transferred when she is clinically stable. -Wound cultures reveal gram-positive cocci, strep Agalactiae. Bone cultures revealed MRSA, with only intermediate coverage with vancomycin. -Blood Cultures show no growth -PICC line in place -Reviewed labs: Leukocytosis resolved from 12.5-12.1, ESR 91, CRP 101.6 -Consent signed at bedside and placed on chart; Incision and Drainage, debridement of nonviable soft tissue an bone, bone biopsy, application of wound vac in the OR. Apply wound vac once at SNF. Wound vac to right foot wounds @125mmHg medium continuous. Plan to vac changes twice weekly (Tu/Fri or Mon/Thurs). If vac has an issue that can not be trouble shoot immediately, remove and apply betadine gauze packing, dry 4x4, kerlix, joan wrap. -NWB to RLE in postop shoe with walker/wheelchair. -PICC, IV abx: abx x 3 wks total with weekly labs to monitor infection (cbc, bmp, esr, crp) faxed to PCP and Podiatry Dr Ortiz @[phone]. -Will continue to follow patient while still inpatient -IV Zyvox 600mg q12h, Levo 750mg x2 wks (07/08-07/23/24). -Pain control per hospitalist. -All orders per Dr. Ortiz Specimens:: Wound cultures reveal gram-positive cocci, strep Agalactiae (Gentamicin Resistant) Right fifth metatarsal bone culture- Staphylococcus equorum, Methicillin Resistant Staphylococcus Right foot ulcer tissue culture-Staphylococcus epidermidis, Methicillin- Resistant Staphylococcus
[2024-07-14 06:51] LABS: Albumin Level 3.2 g/dl (3.5-5.0); Chloride 90 mmol/L (98-107); Potassium 4.1 mmoL/L (3.5-5.1); Sodium 132 mmol/L (136-145)
[2024-07-14 06:54] LABS: Alanine Aminotransferase 11 U/L (12-78); Albumin/Globulin Ratio 0.8 (1.1-1.8); Alkaline Phosphatase 89 U/L (38-126); Aspartate Amino Transferase 27 U/L (14-36); Bilirubin,Total 0.5 mg/dl (0.2-1.3); Blood Urea Nitrogen 27 mg/dl (7-17); Calcium 8.9 mg/dl (8.4-10.2); Creatinine Clearance Estimated 95 mL/min (50-200); Estimated Glomerular Filt Rate 47 ml/min (>60); GFR (African American) 56 ML/MIN (>60); Glucose 111 mg/dl (74-100); Total Protein,Serum 7.2 g/dl (6.3-8.2)
[2024-07-14 07:00] LABS: C-Reactive Protein 102.9 mg/L (0-4)
[2024-07-14 07:04] LABS: Anion Gap 9.1 mEq/L (5-15); Carbon Dioxide 37 mmol/L (22.0-30.0)
[2024-07-14 07:17] LABS: Magnesium 1.8 mg/dl (1.6-2.3)
[2024-07-14 07:43] LABS: Erythrocyte Sedimentation Rate 91 mm/hr (0-30)
[2024-07-14 08:02] LABS: C-Reactive Protein 101.6 mg/L (0-4)
--- NOTE | 2024-07-14 08:55 | P.PN_ITS ---
Subjective *Date: 07/14/24 *Time: 13:00 Interval history: Continues to have pain in right foot. Increased warmth of right leg. Podiatry evaluated, going for surgery this afternoon. No nausea or vomiting. No chest pain. Stable oxygen requirement for several days now. Alert and oriented x 4 Medical Exam Vital signs and Labs for Last 24 Hours: Vital Signs Temp Pulse Resp BP Pulse Ox O2 Del Method O2 Flow Rate 07/14/24 08:00 98.5 F 62 16 89/43 L 95 Nasal Cannula 3 07/14/24 06:40 Nasal Cannula 3 07/14/24 05:00 Nasal Cannula 3 07/14/24 04:00 98.5 F 69 17 124/55 L 92 L Nasal Cannula 3 07/14/24 03:00 Nasal Cannula 3 07/14/24 01:00 Nasal Cannula 3 07/14/24 00:00 98.3 F 68 18 112/69 93 L Nasal Cannula 3 07/13/24 23:00 Nasal Cannula 3 07/13/24 21:00 Nasal Cannula 3 07/13/24 20:00 72 17 93 L Nasal Cannula 3 07/13/24 20:00 99.0 F 72 17 113/68 93 L Nasal Cannula 3 07/13/24 19:07 Nasal Cannula 2 07/13/24 18:28 Nasal Cannula 2 07/13/24 18:10 91 L Room Air 07/13/24 16:58 Nasal Cannula 2 07/13/24 16:00 99.5 F 63 16 99/42 L 94 L Room Air 07/13/24 15:00 Nasal Cannula 2 07/13/24 13:00 Nasal Cannula 2 07/13/24 12:00 98.7 F 68 15 136/64 95 Nasal Cannula 3 07/13/24 11:00 Nasal Cannula 2 07/13/24 09:00 Nasal Cannula 2 FiO2 07/14/24 08:00 07/14/24 06:40 07/14/24 05:00 07/14/24 04:00 07/14/24 03:00 07/14/24 01:00 07/14/24 00:00 07/13/24 23:00 07/13/24 21:00 07/13/24 20:00 07/13/24 20:00 07/13/24 19:07 8 07/13/24 18:28 07/13/24 18:10 07/13/24 16:58 07/13/24 16:00 07/13/24 15:00 07/13/24 13:00 07/13/24 12:00 07/13/24 11:00 07/13/24 09:00 Intake and Output 07/13/24 07/14/24 07/14/24 23:59 07:59 15:59 Intake Total 1030 / 3020 540 / 780 240 / 780 Output Total 350 / 350 300 / 300 Balance 680 / 2670 240 / 480 240 / 480 Intake: Intake, Oral Amount 1000 / 2100 240 / 480 240 / 480 Intake, Total IV Amount 30 / 320 Linezolid 600 mg In 300 ml @ 30 / 320 300 mls/hr IV Q12H TANNER Rx#: [id number] Infusion Intake 300 / 300 Linezolid 600 mg In 300 ml @ 300 / 300 300 mls/hr IV Q12H TANNER Rx#: [id number] Output: Output, Urine Amount 350 / 350 300 / 300 Other: Number of Unmeasured Voids 1 Number of Bowel Movements 1 1 Weight 113.217 kg Patient Weight 07/14/24 23:59 Weight 113.217 kg Laboratory Results - last 24 hr 07/13/24 10:53: POC Glucose 178 H 07/13/24 15:54: POC Glucose 105 07/13/24 19:32: POC Glucose 217 H 07/14/24 05:51: POC Glucose 104 07/14/24 06:11: WBC 12.1 H, RBC 3.74 L, Hgb 11.2 L, Hct 33.1 L, MCV 88.5, MCH 30.0, MCHC 33.9, RDW 14.4, Plt Count 272, MPV 7.2 L, Neut % (Auto) 80.9 H, Lymph % (Auto) 11.7, [place] % (Auto) 5.1, Eos % (Auto) 1.9, Baso % (Auto) 0.4, Neut # (Auto) 9.8 H, Lymph # (Auto) 1.4, [place] # (Auto) 0.6, Eos # (Auto) 0.2, Baso # (Auto) 0.1, ESR 91 H, Sodium 132 L, Potassium 4.1, Chloride 90 L, Carbon Dioxide 37 H, Anion Gap 9.1, BUN 27 H, Creatinine 1.20 H, Estimated Creat Clear 95, Estimated GFR 47 L, Est GFR ( Amer) 56 L, Glucose 111 H, Calcium 8.9, Magnesium 1.8, Total Bilirubin 0.5, AST 27, ALT 11 L, Alkaline Phosphatase 89, C-Reactive Protein 102.9 H 07/14/24 06:11: C-Reactive Protein 101.6 H, Total Protein 7.2, Albumin 3.2 L, Globulin 4.0 H, Albumin/Globulin Ratio 0.8 L I & O for Labs for Last 24 Hours: Intake & Output 07/11/24 07/12/24 07/13/24 07/14/24 23:59 23:59 23:59 23:59 Intake Total 1525 / 1525 740 / 1160 2480 / 3020 780 / 780 Output Total 1350 / 1350 2200 / 2200 350 / 350 300 / 300 Balance 175 / 175 -1460 / -1040 2130 / 2670 480 / 480 Weight 108.409 kg 110.767 kg 112.219 kg 113.217 kg Microbiology Reports for the Last 24 Hours: Microbiology 07/12/24 16:35 Blood Blood Culture - Preliminary NO GROWTH AFTER 24 HOURS 07/12/24 16:45 Blood Blood Culture - Preliminary NO GROWTH AFTER 24 HOURS Constitutional: Present no acute distress, obese, chronically ill appearing and cooperative Head: Present atraumatic and normocephalic ENT: Present normal exam Respiratory: Present normal respiratory effort; Absent rhonchi, wheezes or crackles Cardiac: Present Reg Rate and Rhythm GI: Present soft and normal bowel sounds; Absent distention or tenderness Comment:: Right foot and postsurgical wrap. Toes exposed, warm. Absent fifth digit status post fifth metatarsal amputation. increase in warmth of lower extremity on right side distal to knee. No increased erythema Skin: Present intact; Absent erythema Neuro: Present Grossly Intact, alert, awake, oriented x 3 and moves all extremities Additional Findings:: Pain pump in place in right lower back Assessment and Plan *Assessment and plan (1) Cellulitis of right foot: Status: Acute Category: Medical Code(s): L03.115 - Cellulitis of right lower limb (2) Osteomyelitis: Status: Acute Qualifiers: Laterality: right Osteomyelitis location: foot Osteomyelitis type: unspecified type Qualified Code(s): M86.9 - Osteomyelitis, unspecified Category: Medical Code(s): M86.9 - Osteomyelitis, unspecified (3) Diabetic foot ulcer: Status: Acute Qualifiers: Diabetes mellitus type: type 2 Diabetic foot ulcer location: other Laterality: right Non-pressure ulcer stage: with necrosis of bone Qualified Code(s): E11.621 - Type 2 diabetes mellitus with foot ulcer; L97.514 - Non- pressure chronic ulcer of other part of right foot with necrosis of bone Category: Medical Code(s): E11.621 - Type 2 diabetes mellitus with foot ulcer; L97.509 - Non-pressure chronic ulcer of other part of unspecified foot with unspecified severity (4) Neuropathy: Status: Chronic Category: Medical Code(s): G62.9 - Polyneuropathy, unspecified (5) Hypothyroidism: Status: Acute Category: Medical Code(s): E03.9 - Hypothyroidism, unspecified (6) Moderate depressive disorder: Status: Acute Category: Medical Code(s): F32.A - Depression, unspecified (7) Type 2 diabetes mellitus: Status: Chronic Qualifiers: Diabetes mellitus complication detail: with polyneuropathy Diabetes mellitus complication status: with neurologic complications Diabetes mellitus termite exterminator helper insulin use: with termite exterminator helper use Qualified Code(s): E11.42 - Type 2 diabetes mellitus with diabetic polyneuropathy Category: Medical Code(s): E11.9 - Type 2 diabetes mellitus without complications Plan Patient is a 54-year-old female with past medical history of diabetes mellitus, diabetic neuropathy who presents to the hospital due to right foot pain as well as diabetic foot ulcer. According to patient she follows up with clinical partner at . Patient reports pus discharge from ulcer as well as worsening pain 10/10 intensity constant, sharp. Patient otherwise denied chest pain shortness of breath nausea vomiting diarrhea constipation dysuria fevers and chills. Status post I&D with amputation of fifth metatarsal of right foot. Has developed fever over the past 24 hours. Podiatry to reevaluate in the morning. Continues to require inpatient management. Due to worsening condition over the weekend, will go back to OR for revision. CT per my review concerning for fluid collection and gas. Problems addressed as follows: R Diabetic foot ulcer R Diabetic foot cellulitis Acute on chronic osteomyelitis of R foot ? Patient states she has had a right foot ulcer for the past few months, getting worse over the past week prior to admission. Initial CT of the foot revealed acute on chronic osteomyelitis, CRP and ESR also significantly elevated. ? Patient is status post right fifth metatarsal amputation, incision and drainage, and debridement of midfoot. ? Repeat CT this weekend obtained; per my review showing fluid collection and subcu gas. Concern for recurrence of infection. Evaluated by podiatry today, discussed case this morning, will go back to the OR this afternoon -Continue gabapentin to 800mg TID; oxycodone 5 mg BID as needed for severe breakthrough pain. Monitor for toxicity. Requiring at least 2 doses daily for pain. -Tylenol 650 mg p.o. every 4 hours as needed for fever - White count stable but elevated at 12. no fever in 24 hours. Inflammatory markers increased however to 102 for CRP and ESR elevated at 91. - kidney function and electrolytes normal with BUN 27, creatinine 1.2. CBC, CMP, magnesium ordered for the morning. -CRP pending for the morning ? Continue Zyvox and Levaquin. Day 7 of 14. ?-Continue nonweightbearing status on right foot. ? PICC line in place; will place new wound VAC in the OR today. ? Patient accepted to [facility] for swing bed. Insurance approval came through late Sunday. Anticipate transfer to swing bed in the coming days after surgical revision Diabetes mellitus ?LDSSI, ACHS glucose checks - Morning glucose 111 -Receiving approximately 12 units of short acting insulin daily. Tolerating 15 units insulin glargine. Monitor for short acting needs. Chronic medical conditions Hypertension Hypothyroidism Depression Hyperlipidemia Restless leg syndrome -Continue medications including coreg, lisinopril, ropinirole, methimazole, Protonix, trazodone, duloxetine, home Imdur 30 mg daily. - cont. Lasix, 80mg PO daily. Weaning oxygen as tolerated, currently on 1L when awake, 3 L at night Full code Heparin subcu 8000 units daily Diabetic diet
[2024-07-14] MEDS: OXYCODONE 5MG IMMEDIATE RELEASE TABLET 5 MG PO ×2 (09:12→17:21)
[2024-07-14] MEDS: METHOCARBAMOL 500MG TABLET 1000 MG PO ×2 (09:12→20:36)
[2024-07-14] MEDS: FENOFIBRATE 54MG TABLET 54 MG PO (09:12)
[2024-07-14] MEDS: CITALOPRAM 40MG TABLET 40 MG PO (09:12)
[2024-07-14] MEDS: ISOSORBIDE MONO 30MG TAB.ER.24H 30 MG PO (09:13)
[2024-07-14] MEDS: GABAPENTIN 800MG TABLET 800 MG PO ×2 (09:13→20:36)
[2024-07-14] MEDS: METHIMAZOLE 10 MG 0.25 EACH PO (09:13)
[2024-07-14] MEDS: DULOXETINE 30MG CAPSULE.DR 60 MG PO (09:13)
[2024-07-14] MEDS: LINEZOLID 600 MG/300 ML IV.SOLN 300 MG IV ×2 (10:21→20:38)
[2024-07-14] MEDS: humaLOG 100 UNITS/ML 10ML VIAL (SSI) SQ ×2 (11:20→20:37)
[2024-07-14] MEDS: LEVOFLOXACIN/D5W 750 MG/150 ML 750 MG/150 ML PIGGYBACK 100 MG IV (11:24)
--- NOTE | 2024-07-14 14:29 | P.PNANES_ITS ---
[facility] Disclaimer: The information contained in this section may have been updated after the patient was seen, as this information can be updated by other users. Medical History Presence of intrathecal pump Excess skin of arm Encounter for wound care 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 Type 2 diabetes mellitus Diabetic foot Surgical History Total knee replacement status Family History Other Family history of COPD (chronic obstructive pulmonary disease) Family history of cancer Family history of diabetes mellitus type II Family history of hypertension Family history of myocardial infarction Social History Smoking Status: Current some day smoker tobacco type: cigarettes packs per day: 1 second hand exposure: Yes alcohol intake: never substance use type: denies use current occupational status: other Travel in the last 8 weeks: None household members: friend(s) housing: house lives independently: Yes marital status: single education level: high school 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 caffeine: Yes special heather needs: No agree to transfusion: No do you feel safe at home: Yes victim of physical abuse: No victim of emotional abuse: No victim of sexual abuse: No would you like helpful sources: No [facility] Anesthesia Checklist Patient Identification Patient Identification: Arm Band and Verbal (Name & ) Structural Data Admitted From: Home Planned Operative Procedure/s: I & D foot Consent for Planned Operative Procedure(s) Verified: Yes Verified Documents: Surgical Consent and History and Physical NPO Status Verified Time NPO: 07:00 Additional verifications Anesthesia Reactions: No Hx Blood Transfusions: No Blood Transfusion Reaction: No Cephalosporin Allergy: No Airway Assessment Mallampati Score:: Class III C-Spine Mobility Assessed: Yes TMJ Mobility Assessed: Yes Dentition: Edentulous Neurological Assessment Level of Consciousness: Awake Hx Seizures: No Numbness or tingling in extremities: No Anesthesia Plan Anesthesia Risk discussed: Yes Anesthesia Plan: Verified ASA Class: III Anesthesia Type: General
[2024-07-14] MEDS: CLINDAMYCIN PHOSPHATE/D5W 900 MG/50 ML PIGGYBACK 100 MG (15:20)
[2024-07-14] MEDS: VANCOMYCIN 1000MG VIAL 1000 MG (15:21)
[2024-07-14] MEDS: GENTAMICIN 80 MG/2 ML VIAL (15:21)
[2024-07-14] MEDS: SODIUM CHLORIDE IRRIG SOLUTION 3,000 ML 100 ML IR (15:22)
--- NOTE | 2024-07-14 16:44 | P.OP_ITS ---
Date of procedure: 07/14/24 Pre-op Diagnosis:: Right foot gas Right foot DFU, open wound S/p right fifth ray amputation, right foot I&D with debridement and ARLINE drain application on 07/02/24 Post-op Diagnosis:: Same Procedure performed:: Right foot incision and drainage Right foot wide excisional debridement of nonviable soft tissue/bone Partial fourth metatarsal resection with open bone biopsy Partial delayed primary closure Application of wound VAC Surgeon:: Moira Ortiz DPM [employer]EL EFFICIENT AUTOMOBILE DESIGNER:: Davey Gaston Anesthesia: GETA Estimated blood loss (mL): 30 Clinical Note:: Patient is a 54-year-old female who underwent surgery 07/02/2024: Right fifth ray amputation, right foot I&D with debridement and ARLINE drain application. She has been admitted to the hospital since 07/01/2024 receiving IV antibiotics. Antibiotics have been adjusted based on her past cultures. Sunday patient became febrile. New labs and CT images were discussed with the patient. We discussed conservative versus surgical treatment options. We discussed conservative care including continued oral vs IV antibiotics and local wound care versus surgical incision and drainage. Discussed due to the new changes, recent fever, worsening inflammatory markers and increased pain at the surgical site would recommend surgery for I&D, debridement and fourth metatarsal partial resection/bone biopsy with wound VAC application. Patient understands that they could have wound healing complications including delayed healing and infection. We discussed that if the wound does not heal, it is possible that they may need further debridement or amputation. Patient understands if infection spreads into the adjacent bone, it may warrant proximal amputation and could result in further loss of digits, loss of partial foot or loss of leg. We discussed the risks and benefits in great detail. Other surgical risks include: prolonged pain and swelling, further infection requiring oral or IV antibiotics, delay in healing of soft tissue or bone, nerve or blood vessel damage, CRPS/RSD, DVT/PE, anesthesia complications, and even . All questions answered. Patient verbalized understanding. Consent obtained. Operative findings:: S/p fifth ray resection. Patient had some dusky discoloration with bruising noted to the dorsal aspect of the open wound. Sutures intact to prior surgical site. Pre-debridement there was some granulation tissue noted at the distal aspect of the wound. Some serosanguineous drainage noted at the central opening. All sutures were removed. There was some liquefactive necrosis noted at the plantar lateral tissue at the level of the prior fifth metatarsal base site. Tissue was sharply excisionally debrided with 15 blade forceps to the level good healthy bleeding bone. 2 cc of yellow purulent drainage expressed from the fourth metatarsal base. Fourth metatarsal base did have some fragmentation so decision was made to proceed with partial fourth metatarsal resection and send piece for culture and pathology as bone biopsy. Area was explored and no deep sinus tracking noted plantarly or proximally. Overall prognosis is fair. Concern over recurrent gas and recurrent infection. Operative note:: On this date and time patient was deemed an appropriate surgical candidate. With informed consent signed, the patient was taken to the operating theater. The patient was positioned supine. General anesthesia was induced. Right mid calf tourniquet used @225mmHg. Patient got Zyvox and Levaquin scheduled on floor this morning. IV clindamycin infused. Right lower extremity prepped and draped in normal sterile fashion. Right foot incision and drainage: New incision was made between the sub fourth metatarsal head and open wound/diabetic foot ulcer over the previous fifth metatarsal ray amp site full-thickness 2.5cm down to level of the bone. Purulent drainage expressed from the level of the 4th met base. Wound culture taken. Drainage appeared to be localized at the ulcer site and 4th met base. No significant tracking noted. Right foot irrigation and wide excisional debridement: Next 15 blade and forceps were used to sharply excisionally debride nonviable soft tissue and bone. Wide excisional debridement included both diabetic foot ulcer/open wound along with the fourth metatarsal fragmented base. Post debridement: The right lateral foot ulcer was: 100% granular and measured 8 x 7 x 3.2 cm full-thickness through skin, subcu, deep fascia down to the level of the cuboid bone. Right fourth metatarsal partial resection/amputation: Next due to the history of 5th met osteomyelitis and the new 5th metatarsal base fragmentation, decision made to use a saw to resect the fourth metatarsal base. The most proximal aspect of the base was soft and crumbly with fragmentation noted. A piece of the bone was sent for bone culture and a piece for bone pathology. Next 3 L gentamicin irrigation was used in a pulse lavage to flush to the area. Area was reexplored and no sinus tracking or drainage noted. As previously mentioned the infection appeared to be contained to the fourth metatarsal base and previous diabetic foot ulcer site. Partial delayed primary closure: Next vancomycin powder was inserted into the wound. 2-0 nylon was used to reapproximate the skin edges distally. The most distal aspect of the incision was able to be fully reapproximated. There was a wound still noted at the level of the previous fifth metatarsal base/DFU site. Skin edges were sharply excisionally debrided with a 15 blade and forceps. Vancomycin powder inserted into the deep tissue and over the cuboid bone. Healthy bleeding skin edges were noted. Post debridement: The right lateral foot ulcer was: 100% granular and measured 4.8 x 5.1 x 3.2 cm full-thickness through skin, subcu, deep fascia. No exposed bone noted. Wound vac application: Partial closure of the wound. Proximal and distal skin had been reapproximated with sutures. Wound VAC applied in standard technique to the right lateral DFU where there was no skin to cover the opening at 125 mmHg medium continuous. Vancomycin powder applied over the skin. Dry sterile dressing applied to the right foot. Tourniquet deflated and immediate hyperemic response was noted to the digits. Patient was awoken from anesthesia with vital signs stable and neurovascular status intact. She appeared to tolerate procedure and anesthesia well without complication. She was stable to be transferred back to the floor. Plan: Maintain dressing clean dry and intact. Wound VAC at 125 mmHg medium continuous. Plan for wound VAC changes twice weekly (Mon, Th). NWB to RLE in postop shoe with walker/wheelchair. Consult care management: For discharge planning, she will need wound VAC dressing changes, secure VAC with dry sterile dressing and abx mgmt. Concern over her compliance and recurrent infection. Recommend continuation of IV antibiotics until cultures finalized. Initial plan was for Zyvox and Levaquin x 14 days. Given her recurrent infection and new gas which necessitated return to the OR today, will likely need to extend length of PICC line with IV antibiotics. Plan for infection labs: CBC, ESR, CRP in the a.m. Podiatry will follow-up with patient tomorrow. Tourniquet time (min): 40 Condition: stable Disposition: floor Specimens:: Right foot Wcx Right ulcer tissue cx Right 4th met bone cx Right 4th met bone path Right foot margin path Complications:: None
--- NOTE | 2024-07-14 16:45 | EXP.ANES.I ---
[facility] Anesthesia Record Part I Anesthesia Record I Intake, IV Amount: 1,000 Hydration: Adequate Estimated blood loss (mL): 0 Urine output (mL): 0 Blood Pressure: 131/70 SaO2: 93 Pulse Rate: 68 Airway Patency: Patent Respiratory Rate: 12 Temperature: 97.7 F Patient is:: Awake and Stable Stable to PACU at:: 16:40
[2024-07-14 17:02] LABS: POC Glucose,Bedside 94 (70-110)
--- NOTE | 2024-07-14 17:06 | XR_ITS ---
PROCEDURE INFORMATION: Exam: XR Right Foot Exam date and time: 07/14/2024 5:39 PM Age: 54 years old Clinical indication: Device placement; Other: S/P 4th met partial resection; Prior surgery; Surgery date: Post-operative (0-2 days) TECHNIQUE: Imaging protocol: Radiologic exam of the right foot. Views: 3 or more views. COMPARISON: CT FOOT RT WO CON 07/12/2024 5:19 PM FINDINGS: Bones/joints: Status post resection of the base of the 4th metatarsal with prior 5th metatarsal amputation. No acute fracture or dislocation. No aggressive osseous lesions. Soft tissues: A wound VAC is in place over the incision site. Soft tissue swelling and gas consistent with recent postoperative state. IMPRESSION: Postsurgical changes without acute injury identified.
[2024-07-14 20:22] LABS: POC Glucose,Bedside 238 (70-110)
[2024-07-14] MEDS: MORPHINE 2MG/ML SYRINGE 2 MG IV ×2 (20:34→22:37)
[2024-07-14] MEDS: ROPINIROLE 1MG TABLET 3 MG PO (20:36)
[2024-07-14] MEDS: PANTOPRAZOLE 40MG TABLET 40 MG PO (20:36)
[2024-07-14] MEDS: ONDANSETRON 4MG/2ML VIAL 4 MG IV (20:36)
[2024-07-14] MEDS: INSULIN GLARGINE 100 UNITS/ML 3ML FLEXPEN 15 UNIT SQ (20:37)
[2024-07-14] MEDS: TRAZODONE 50MG TABLET 150 MG PO (20:37)
[2024-07-14] MEDS: CARVEDILOL 25MG TABLET 25 MG PO (20:37)
[2024-07-15 00:05] VITALS: BP 121/59; PULSE 70; RESP 16; TEMP 37.5; O2SAT 94
[2024-07-15] MEDS: HEPARIN SODIUM 5,000 UNIT/ML VIAL 5000 UNIT SQ ×3 (00:28→16:50)
[2024-07-15] MEDS: MORPHINE 2MG/ML SYRINGE 2 MG IV ×2 (00:29→06:04)
[2024-07-15 04:00] VITALS: BP 110/54; PULSE 73; RESP 18; TEMP 36.9; O2SAT 96; BMI 41.6
--- NOTE | 2024-07-15 05:09 | PC.NURSE ---
Alert and oriented. Complained of pain this shift, treated per nov. Dressing to R foot intact and clean, wound vac intact at 125, drainage noted in the canister, bright red, small amount. PICC line dressing changed this shift, no signs of infection at the site. ACHS FS. Complained of nausea 1 time, treated per nov. Remains on 3L NC at this time to maintain O2 sat >90%. Edema noted to BLE. Pt has not rested through the night. Call light in reach.
[2024-07-15] MEDS: NYSTATIN TOPICAL POWDER 30GM TP (06:07)
--- NOTE | 2024-07-15 06:26 | EXP.ORTH.PN ---
Subjective *Date: 07/15/24 *Time: 08:06 Interval history: Patient is S/p right fifth ray amputation, right foot I&D with debridement and ARLINE drain application on 07/02/24 and then developed changes to right foot and required another surgery yesterday 07/14/24: Right foot incision and drainage, Right foot wide excisional debridement of nonviable soft tissue/bone, Partial fourth metatarsal resection with open bone biopsy, Partial delayed primary closure, Application of wound VAC. Ortho Exam (Inpt) Vital signs and Labs for Last 24 Hours: Temp Pulse Resp BP Pulse Ox O2 Del Method O2 Flow Rate 98.5 F 73 18 110/54 L 96 Nasal Cannula 3 07/15/24 04:00 07/15/24 04:00 07/15/24 04:00 07/15/24 04:00 07/15/24 04:00 07/15/24 05:00 07/15/24 05:00 FiO2 8 07/13/24 19:07 Laboratory Results - last 24 hr 07/14/24 06:11: WBC 12.1 H, RBC 3.74 L, Hgb 11.2 L, Hct 33.1 L, MCV 88.5, MCH 30.0, MCHC 33.9, RDW 14.4, Plt Count 272, MPV 7.2 L, Neut % (Auto) 80.9 H, Lymph % (Auto) 11.7, [place] % (Auto) 5.1, Eos % (Auto) 1.9, Baso % (Auto) 0.4, Neut # (Auto) 9.8 H, Lymph # (Auto) 1.4, [place] # (Auto) 0.6, Eos # (Auto) 0.2, Baso # (Auto) 0.1, ESR 91 H, Sodium 132 L, Potassium 4.1, Chloride 90 L, Carbon Dioxide 37 H, Anion Gap 9.1, BUN 27 H, Creatinine 1.20 H, Estimated Creat Clear 95, Estimated GFR 47 L, Est GFR ( Amer) 56 L, Glucose 111 H, Calcium 8.9, Magnesium 1.8, Total Bilirubin 0.5, AST 27, ALT 11 L, Alkaline Phosphatase 89, C-Reactive Protein 102.9 H 07/14/24 06:11: C-Reactive Protein 101.6 H, Total Protein 7.2, Albumin 3.2 L, Globulin 4.0 H, Albumin/Globulin Ratio 0.8 L 07/14/24 16:55: POC Glucose 94 07/14/24 20:09: POC Glucose 238 H I & O for Labs for Last 24 Hours: Intake & Output 07/12/24 07/13/24 07/14/24 07/15/24 23:59 23:59 23:59 23:59 Intake Total 740 / 740 2480 / 2480 2380 / 2380 Output Total 2200 / 2200 350 / 350 750 / 750 900 / 900 Balance -1460 / -1460 2130 / 2130 1630 / 1630 -900 / -900 Weight 244 lb 3.2 oz 247 lb 6.4 oz 249 lb 9.6 oz 259 lb 6.4 oz Microbiology Reports for the Last 24 Hours: Microbiology 07/14/24 Unknown Foot,Right Gram Stain - Final 07/12/24 16:45 Blood Blood Culture - Preliminary NO GROWTH AFTER 48 HOURS 07/12/24 16:35 Blood Blood Culture - Preliminary NO GROWTH AFTER 48 HOURS Head: Present normocephalic Eyes: Present as per HPI Neck: Present trachea midline Respiratory: Present normal respiratory effort and able to speak in complete sentences Cardiac: Present posterior tibial pulses present and pedal pulses present Comments:: deferred Rectal (female): Present deferred (female): Present deferred Extremities: Present tenderness (surgical site, Right 5th met amputation, Partial fourth metatarsal resection with open bone biopsy Partial delayed primary closure Application of wound VAC), normal capillary refill and edema (edema improving ); Absent calf tenderness Muscle Strength (Extremity): Patient Baseline Skin: Present warm, normal turgor and wounds (s/p 07/02/24 Right foot I&D, 5th ray amputation) Comment:: S/p 07/14/24:Right foot incision and drainage, Right foot wide excisional debridement of nonviable soft tissue/bone, Partial fourth, metatarsal resection with open bone biopsy, Partial delayed primary closure, Application of wound VAC. Neuro: Present oriented x 3 and moves all extremities Ankle: right: swelling (trace ankle edema ) Feet/Toes: right: swelling (trace pedal edema; 1+ today), right: tenderness (s/p Right 5th met, toe amputation, tender) and right: decreased ROM Assessment and Plan *Assessment and plan (1) Osteomyelitis: Status: Acute Qualifiers: Laterality: right Osteomyelitis location: foot Osteomyelitis type: unspecified type Qualified Code(s): M86.9 - Osteomyelitis, unspecified Category: Medical Code(s): M86.9 - Osteomyelitis, unspecified (2) Diabetic foot ulcer: Status: Acute Qualifiers: Diabetes mellitus type: type 2 Diabetic foot ulcer location: other Laterality: right Non-pressure ulcer stage: with necrosis of bone Qualified Code(s): E11.621 - Type 2 diabetes mellitus with foot ulcer; L97.514 - Non-pressure chronic ulcer of other part of right foot with necrosis of bone Category: Medical Code(s): E11.621 - Type 2 diabetes mellitus with foot ulcer; L97.509 - Non-pressure chronic ulcer of other part of unspecified foot with unspecified severity (3) Diabetes: Status: Chronic Qualifiers: Diabetes mellitus complication status: with other specified complication Diabetes mellitus manager long term care insulin use: with manager long term care use Diabetes mellitus type: type 2 Qualified Code(s): E11.69 - Type 2 diabetes mellitus with other specified complication Category: Medical Code(s): E11.9 - Type 2 diabetes mellitus without complications (4) Hypertension: Status: Chronic Qualifiers: Hypertension type: essential hypertension Qualified Code(s): I10 - Essential (primary) hypertension Category: Medical Code(s): I10 - Essential (primary) hypertension (5) Hypothyroidism: Status: Chronic Qualifiers: Hypothyroidism type: acquired Qualified Code(s): E03.9 - Hypothyroidism, unspecified Category: Medical Code(s): E03.9 - Hypothyroidism, unspecified (6) Depression: Status: Chronic Qualifiers: Depression Type: unspecified Qualified Code(s): F32.A - Depression, unspecified Category: Medical Code(s): F32.9 - Major depressive disorder, single episode, unspecified (7) Anxiety: Status: Chronic Category: Medical Code(s): F41.9 - Anxiety disorder, unspecified (8) Fibromyalgia: Status: Chronic Category: Medical Code(s): M79.7 - Fibromyalgia (9) Pre-ulcerative calluses: Status: Acute Category: Medical Code(s): L84 - Corns and callosities (10) Cellulitis of right foot: Status: Acute Category: Medical Code(s): L03.115 - Cellulitis of right lower limb (11) Decreased pedal pulses: Status: Acute Category: Medical Code(s): R09.89 - Other specified symptoms and signs involving the circulatory and respiratory systems (12) Soft tissue infection of foot: Status: Acute Category: Medical Code(s): L08.9 - Local infection of the skin and subcutaneous tissue, unspecified (13) Neuropathy: Status: Chronic Category: Medical Code(s): G62.9 - Polyneuropathy, unspecified (14) Onychoincurvatum: Status: Acute Category: Medical Code(s): L60.8 - Other nail disorders (15) Onychodystrophy: Status: Acute Category: Medical Code(s): L60.3 - Nail dystrophy (16) Keratosis: Status: Acute Category: Medical Code(s): L57.0 - Actinic keratosis (17) Diabetic foot ulcer: Status: Acute Qualifiers: Diabetes mellitus type: type 2 Diabetic foot ulcer location: heel Laterality: right Non-pressure ulcer stage: with other severity Qualified Code(s): E11.621 - Type 2 diabetes mellitus with foot ulcer; L97.418 - Non-pressure chronic ulcer of right heel and midfoot with other specified severity Category: Medical Code(s): E11.621 - Type 2 diabetes mellitus with foot ulcer; L97.509 - Non-pressure chronic ulcer of other part of unspecified foot with unspecified severity (18) Amputation of toe: Status: Acute Qualifiers: Laterality: right Qualified Code(s): S98.131A - Complete traumatic amputation of one right lesser toe, initial encounter Category: Medical Code(s): S98.139A - Complete traumatic amputation of one unspecified lesser toe, initial encounter (19) Status post amputation: Start date: 08/02/24 Problem Comment: Right fifth ray(metatarsal, toe) amputation for Osteomyelitis Status: Acute Category: Surgical Code(s): Z89.9 - Acquired absence of limb, unspecified (20) Acute osteomyelitis: Status: Acute Category: Medical Code(s): M86.10 - Other acute osteomyelitis, unspecified site Plan Patient is a 54-year-old female with past medical history of diabetes mellitus, diabetic neuropathy who presents to the hospital due to right foot pain as well as diabetic foot ulcer. 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 Patient reports pus discharge from ulcer as well as worsening pain 10/10 intensity constant, sharp. Patient otherwise denied chest pain shortness of breath nausea vomiting. She has had some loose stools r/t antibiotics. She developed a fever over the weekend and blood cultures were drawn, and no growth showing at this time. Patient is doing well this morning, foot is sore but improved. 07/15/24: Patient was taken back to surgery yesterday 07/14/[address] scan over the weekend showing fluid collection and subcu gas concerning for reoccurrence of infection. Post Op day #1, S/p 07/14/24, Right foot incision and drainage, Right foot wide excisional debridement of nonviable soft tissue, bone, Partial fourth metatarsal resection with open bone biopsy, Partial delayed primary closure, Application of wound VAC Sx. 07/02/24: S/P Right fifth ray (metatarsal, toe) amputation, Right foot incision and drainage, Right foot wide excisional debridement, Application of ARLINE drain Plan: Maintain dressing clean dry and intact. Wound VAC at 125 mmHg medium continuous. Plan for wound VAC changes twice weekly (Sun, ). NWB to RLE in postop shoe with walker/wheelchair. Consult care management: For discharge planning, she will need wound VAC dressing changes, secure VAC with dry sterile dressing and abx mgmt. Concern over her compliance and recurrent infection. Recommend continuation of IV antibiotics until cultures finalized. Initial plan was for Zyvox and Levaquin x 14 days. Given her recurrent infection and new gas which necessitated return to the OR, will likely need to extend length of PICC line with IV antibiotics. Reviewed infection labs: CBC- 12.1-13.8 ESR 91-88, CRP 101.6-116.2 Podiatry changed kerlix and joan left wound vac in place, its doing well with drainage. Patient is good from Podiatry standpoint to be transferred to [place] at hospitalist discretion. Apply wound vac once at SNF. Wound vac to right foot wounds @125mmHg medium continuous. Plan to vac changes twice weekly (Tu/Fri or Sun/). If vac has an issue that can not be trouble shoot immediately, remove and apply betadine gauze packing, dry 4x4, kerlix, joan wrap. -NWB to RLE in postop shoe with walker/wheelchair. -PICC, IV abx: abx x 3 wks total with weekly labs to monitor infection (cbc, bmp, esr, crp) faxed to PCP and Podiatry Dr Ortiz @[phone]. -Will continue to follow patient while still inpatient -IV Zyvox 600mg q12h, Levo 750mg x2 wks (07/14-07/28/24). -Pain control per hospitalist. -All orders per Dr. Ortiz Specimens:: Pending from surgery 07/14/24 Right foot Wcx Right ulcer tissue cx Right 4th met bone cx Right 4th met bone path Right foot margin path Results from surgery on 07/02/24 Wound cultures reveal gram-positive cocci, strep Agalactiae (Gentamicin Resistant) Right fifth metatarsal bone culture- Staphylococcus equorum, Methicillin Resistant Staphylococcus Right foot ulcer tissue culture-Staphylococcus epidermidis, Methicillin-Resistant Staphylococcus
[2024-07-15 06:53] LABS: Basophils % 0.3 % (0.1-2.0); Eosinophils % 0.3 % (0.1-12.0); Hemoglobin 12.2 g/dL (12.2-16.2); Lymphocytes # 2.1 K/mm3 (0.7-4.5); Lymphocytes % 15.5 % (10-50); Mean Corpuscular HGB Conc 32.8 g/dL (31.8-35.4); Mean Corpuscular Hemoglobin 30.2 pg (27.0-31.2); Mean Corpuscular Volume 91.9 fl (81-99); Mean Platelet Volume 7.3 fl (7.4-10.4); Monocytes # 0.8 K/mm3 (0.1-1.0); Monocytes % 5.7 % (1.7-9.3); Neutrophils # 10.8 K/mm3 (1.8-7.8); Neutrophils % 78.3 % (37.0-80.0); Platelet Count 268 K/mm3 (142-424); Red Blood Count 4.03 M/mm3 (4.20-5.40); Red Cell Distribution Width 14.2 % (11.5-17.5); White Blood Count 13.8 K/mm3 (4.8-10.8)
[2024-07-15 07:07] LABS: C-Reactive Protein 116.2 mg/L (0-4)
--- NOTE | 2024-07-15 07:20 | EXP.ANES.II ---
[facility] Anesthesia Record Part II Anesthesia Record Part II Discharge Time: 17:10 Destination: Second Floor PACU nurse assessment reviewed?: Yes Patient Condition:: Good Anesthesia Complications:: None Swallowing reflex intact?: Yes Airway Patency: Patent Cyanosis?: No Blood Pressure: 138/68 SaO2: 94 Respiratory Rate: 18 Pulse Rate: 65 Temperature: 98 F Mental Status: Alert & Oriented Pain level:: 0 Nausea and/or vomitting:: None Intake, IV Amount: 0 Hydration: Adequate
[2024-07-15 07:21] VITALS: BP 138/68; PULSE 65; RESP 18; TEMP 36.6; O2SAT 94
[2024-07-15 07:37] LABS: Erythrocyte Sedimentation Rate 88 mm/hr (0-30)
[2024-07-15 07:42] LABS: Albumin Level 3.3 g/dl (3.5-5.0); Chloride 91 mmol/L (98-107); Potassium 4.5 mmoL/L (3.5-5.1); Sodium 132 mmol/L (136-145)
[2024-07-15 07:45] LABS: Alanine Aminotransferase 12 U/L (12-78); Albumin/Globulin Ratio 0.8 (1.1-1.8); Alkaline Phosphatase 96 U/L (38-126); Anion Gap 7.5 mEq/L (5-15); Aspartate Amino Transferase 24 U/L (14-36); Bilirubin,Total 0.6 mg/dl (0.2-1.3); Blood Urea Nitrogen 27 mg/dl (7-17); Carbon Dioxide 38 mmol/L (22.0-30.0); Creatinine Clearance Estimated 60 mL/min (50-200); Estimated Glomerular Filt Rate 58 ml/min (>60); GFR (African American) 70 ML/MIN (>60); Globulin 3.9 g/dL (1.3-3.2); Total Protein,Serum 7.2 g/dl (6.3-8.2)
[2024-07-15 07:46] LABS: Glucose 164 mg/dl (74-100)
[2024-07-15 07:50] VITALS: BP 117/66; PULSE 75; RESP 18; TEMP 37.6; O2SAT 96
[2024-07-15] MEDS: FENOFIBRATE 54MG TABLET 54 MG PO (08:42)
[2024-07-15] MEDS: METHOCARBAMOL 500MG TABLET 1000 MG PO ×3 (08:42→20:34)
[2024-07-15] MEDS: CARVEDILOL 25MG TABLET 25 MG PO ×2 (08:43→20:32)
[2024-07-15] MEDS: DULOXETINE 30MG CAPSULE.DR 60 MG PO (08:43)
[2024-07-15] MEDS: GABAPENTIN 800MG TABLET 800 MG PO ×3 (08:43→20:32)
[2024-07-15] MEDS: ISOSORBIDE MONO 30MG TAB.ER.24H 30 MG PO (08:43)
[2024-07-15] MEDS: CITALOPRAM 40MG TABLET 40 MG PO (08:43)
[2024-07-15] MEDS: METHIMAZOLE 10 MG 0.25 EACH PO (08:56)
[2024-07-15] MEDS: OXYCODONE 5MG IMMEDIATE RELEASE TABLET 5 MG PO ×2 (08:57→15:53)
[2024-07-15] MEDS: LEVOFLOXACIN/D5W 750 MG/150 ML 750 MG/150 ML PIGGYBACK 100 MG IV (09:00)
--- NOTE | 2024-07-15 09:28 | EXP.PHA.PN ---
Subjective *Date: 07/15/24 *Time: 09: Medical Exam Vital signs and Labs for Last 24 Hours: Vital Signs Temp Pulse Pulse Resp BP BP Pulse Ox 07/15/24 07:50 99.7 F H 75 18 117/66 96 07/15/24 07:21 18 07/15/24 06:36 07/15/24 05:00 07/15/24 04:00 98.5 F 73 18 110/54 L 96 07/15/24 03:00 07/15/24 00:39 07/15/24 00:05 99.5 F 70 16 121/59 L 94 L 07/14/24 23:55 07/14/24 23:05 99.1 F 70 15 122/56 L 93 L 07/14/24 23:01 07/14/24 22:05 99.0 F 74 18 124/44 L 93 L 07/14/24 21:05 99.2 F 72 16 147/62 H 92 L 07/14/24 21:00 07/14/24 20:05 72 17 127/62 91 L 07/14/24 20:00 07/14/24 19:35 74 17 129/61 93 L 07/14/24 19:05 69 18 132/63 92 L 07/14/24 18:35 97.9 F 67 19 135/61 94 L 07/14/24 18:18 07/14/24 18:05 98 F 68 18 133/63 92 L 07/14/24 17:50 98.1 F 71 18 149/83 H 94 L 07/14/24 17:36 97.7 F 72 18 127/66 92 L 07/14/24 17:35 97.7 F 72 18 127/66 92 L 07/14/24 17:26 97.8 F 69 18 129/60 91 L 07/14/24 17:20 97.8 F 69 18 129/70 91 L 07/14/24 17:10 98 F 65 18 138/68 94 L 07/14/24 17:00 07/14/24 17:00 65 16 143/70 H 94 L 07/14/24 16:50 65 15 142/66 H 93 L 07/14/24 16:45 97.7 F 68 12 131/70 07/14/24 16:40 97.7 F 68 14 138/70 92 L 07/14/24 13:00 07/14/24 12:00 98.6 F 62 18 109/63 L 95 07/14/24 11:00 O2 Del Method O2 Flow Rate 07/15/24 07:50 Nasal Cannula 3 07/15/24 07:21 07/15/24 06:36 Nasal Cannula 3 07/15/24 05:00 Nasal Cannula 3 07/15/24 04:00 Nasal Cannula 3 07/15/24 03:00 Nasal Cannula 3 07/15/24 00:39 Nasal Cannula 3 07/15/24 00:05 Nasal Cannula 3 07/14/24 23:55 Nasal Cannula 3 07/14/24 23:05 Nasal Cannula 3 07/14/24 23:01 Nasal Cannula 3 07/14/24 22:05 Nasal Cannula 3 07/14/24 21:05 Nasal Cannula 3 07/14/24 21:00 Nasal Cannula 3 07/14/24 20:05 Nasal Cannula 3 07/14/24 20:00 Nasal Cannula 3 07/14/24 19:35 Nasal Cannula 3 07/14/24 19:05 Nasal Cannula 3 07/14/24 18:35 Nasal Cannula 3 07/14/24 18:18 Nasal Cannula 3 07/14/24 18:05 Room Air 07/14/24 17:50 Room Air 07/14/24 17:36 Room Air 07/14/24 17:35 Room Air 07/14/24 17:26 Room Air 07/14/24 17:20 Room Air 07/14/24 17:10 Nasal Cannula 3 07/14/24 17:00 Nasal Cannula 3 07/14/24 17:00 Nasal Cannula 3 07/14/24 16:50 Nasal Cannula 3 07/14/24 16:45 07/14/24 16:40 Nasal Cannula 3 07/14/24 13:00 Nasal Cannula 3 07/14/24 12:00 Room Air 07/14/24 11:00 Nasal Cannula 3 Intake and Output 07/14/24 07/15/24 07/15/24 23:59 07:59 15:59 Intake Total 1600 / 2380 0 / 240 240 / 240 Output Total 450 / 1200 900 / 900 Balance 1150 / 1180 -900 / -660 240 / -660 Intake: Intake, Oral Amount 300 / 780 240 / 240 Intake, Total IV Amount 1300 / 1300 0 / 0 Linezolid 600 mg In 300 ml @ 300 / 300 300 mls/hr IV Q12H [facility] Rx#: [id number] Output: Output, Urine Amount 450 / 1200 900 / 900 Other: Number of Bowel Movements 1 Weight 117.662 kg Patient Weight 07/15/24 23:59 Weight 117.662 kg Laboratory Results - last 24 hr 07/14/24 16:55: POC Glucose 94 07/14/24 20:09: POC Glucose 238 H 07/15/24 06:16: WBC 13.8 H, RBC 4.03 L, Hgb 12.2, Hct 37.0, MCV 91.9, MCH 30.2, MCHC 32.8, RDW 14.2, Plt Count 268, MPV 7.3 L, Neut % (Auto) 78.3, Lymph % (Auto) 15.5, [place] % (Auto) 5.7, Eos % (Auto) 0.3, Baso % (Auto) 0.3, Neut # (Auto) 10.8 H, Lymph # (Auto) 2.1, [place] # (Auto) 0.8, Eos # (Auto) 0.0, Baso # (Auto) 0.0, ESR 88 H, Sodium 132 L, Potassium 4.5, Chloride 91 L, Carbon Dioxide 38 H, Anion Gap 7.5, BUN 27 H, Creatinine 1.00, Estimated Creat Clear 60, Estimated GFR 58 L, Est GFR ( Amer) 70 D, Glucose 164 H, Calcium 9.0, Total Bilirubin 0.6, AST 24, ALT 12, Alkaline Phosphatase 96, C-Reactive Protein 116.2 H, Total Protein 7.2, Albumin 3.3 L, Globulin 3.9 H, Albumin/Globulin Ratio 0.8 L I & O for Labs for Last 24 Hours: Intake & Output 07/12/24 07/13/24 07/14/24 07/15/24 23:59 23:59 23:59 23:59 Intake Total 740 / 1160 2480 / 3020 2380 / 2380 240 / 240 Output Total 2200 / 2200 350 / 350 750 / 1200 900 / 900 Balance -1460 / -1040 2130 / 2670 1630 / 1180 -660 / -660 Weight 110.767 kg 112.219 kg 113.217 kg 117.662 kg Microbiology Reports for the Last 24 Hours: Microbiology 07/14/24 Unknown Foot,Right Gram Stain - Final 07/12/24 16:45 Blood Blood Culture - Preliminary NO GROWTH AFTER 48 HOURS 07/12/24 16:35 Blood Blood Culture - Preliminary NO GROWTH AFTER 48 HOURS The patient's infection will respond to the chosen ABx?: Yes Is the patient receiving the right drug, dose, and route?: Yes Could a more targeted ABx be ordered?: No (PATIENT WAS ON ZYVOX AND LEVAQUIN. TMAX 99.7 WBC 13.8K. CONTINUE CURRENT )
[2024-07-15] MEDS: LISINOPRIL 2.5MG TABLET 2.5 MG PO (09:30)
--- OUTSIDE RECORDS SUMMARY | 2024-07-15 11:15 | XMS_ITS | Continuity of Care Document ---
Author Organization [facility] Phone Care Team Providers Care Optical Instruments Supervisor Name Role Phone EMILIA RAMOS Primary Attending EMILIA RAMOS Admitting YUSUF KEYES Primary Care EMILIA RAMOS Unavailable ALLERGIES AND ADVERSE REACTIONS ALLERGIES AND ADVERSE REACTIONS Code System Allergy Substance Adverse Reaction Date Reaction (Severity) Comment Status Reported By Updated By 4140 RXNorm IBUPROFEN Rash (Moderate) active [id number] on June 17, 2024 10:36:21 PM [place] 2193 RXNorm Rocephin Rash (Moderate) active [id number] on June 17, 2024 10:36:21 PM UT 3647 RXNorm Inapsine Shortness of breath/diffi culty breathing active [id number] on June 17, 2024 10:36:21 PM UT 008316 RXNorm AVELOX Rash (Moderate) active [id number] on June 17, 2024 10:36:21 PM UT FAMILY HISTORY RELATION: Father Status: LIVING SNOMED-CT Diagnosis Age At Onset [id number] Diabetes mellitus [id number] Hypertensive disorder [id number] Hypercholesterolemia 7945475 Arthritis RELATION: Mother Status: LIVING SNOMED-CT Diagnosis Age At Onset [id number] Diabetes mellitus [id number] Hypertensive disorder 51300123 Hypercholesterolemia 2400997 Arthritis RESULTS Patient: UZIEL Cheng Date of : 1970 LABORATORY RESULTS ORDER 100: CBC AUTO W DIFF ( LOINC: 81187-0) ORDER DATE: June 17, 2024 11:08:00 PM UT Specimen Source: Whole Blood Specimen Type: Whole blood s ample PERFORMING LAB: [address] [id number] Result Comment: Final Result Date: June 17, 2024 11:26:00 PM UT (TECH: [email or web address]) LOINC TEST FLAG RESULT REFERENCE RANGE UPDA KRISSY BY 6690-2 Leukocytes [#/volume] in Blood by Automated count N 11.1 10^3/uL 4.5 10^3/uL - 11.5 10^3/uL June 17, 2024 11:26:00 PM UTC (TECH: Top100.cn) 789-8 Erythrocytes [#/volume] in Blood by Automated count N 5.00 10^6/uL 4.25 10^6/uL - 5.57 10^6/uL June 17, 2024 11:26:00 PM UTC (TECH: Top100.cn) 718-7 Hemoglobin [Mass/volume] in Blood N 14.4 g/dL 12.0 g/dL - 15.7 g/dL June 17, 2024 11:26:00 PM UTC (TECH: Top100.cn) 04596-6 Hematocrit [Volume Fraction] of Blood N 43.7 % 36.0 % - 47.0 % June 17, 2024 11:26:00 PM UTC (TECH: Top100.cn) 787-2 Erythrocyte mean corpuscular volume [Entitic volume] by Automated count N 87.4 fl 80 fl - 95 fl June 17, 2024 11:26:00 PM UTC (TECH: Top100.cn) 93514-8 Erythrocyte mean corpuscular hemoglobin [Entitic mass] in Blood from [place]etus by Automated count N 28.8 pg 27.0 pg - 34.0 pg June 17, 2024 11:26:00 PM UTC (TECH: Top100.cn) 74164-7 Erythrocyte mean corpuscular hemoglobin concentration [Mass/volume] in Blood from Fetus by Automated count N 33.0 g/dL 32.0 g/dL - 36.0 g/dL June 17, 2024 11:26:00 PM UTC (TECH: Top100.cn) 96421-7 Platelets [#/volume] in Blood N 242 10^3/uL 150 10^3/uL - 450 10^3/uL June 17, 2024 11:26:00 PM UTC (TECH: Top100.cn) 29207-3 Erythrocyte distribution width [Ratio] N 13.4 % 12.3 % - 15.1 % June 17, 2024 11:26:00 PM UTC (TECH: Top100.cn) 64342-9 Platelet mean volume [Entitic volume] in Blood by Automated count N 9.2 fl 7.4 fl - 10.4 fl June 17, 2024 11:26:00 PM UTC (TECH: RJV) 57950-9 Granulocytes/100 leukocytes in Blood by Automated count N 65.1 % 40 % - 75 % June 17, 2024 11:26:00 PM UTC (TECH: RJV) 736-9 Lymphocytes/100 leukocytes in Blood by Automated count N 22.2 % 15 % - 57 % June 17, 2024 11:26:00 PM UTC (TECH: RJV) 5905-5 Monocytes/100 leukocytes in Blood by Automated count N 9.0 % 4.0 % - 12.0 % June 17, 2024 11:26:00 PM UTC (TECH: RJV) 713-8 Eosinophils/100 leukocytes in Blood by Automated count N 2.5 % 0.0 % - 4.0 % June 17, 2024 11:26:00 PM UTC (TECH: RJV) 706-2 Basophils/100 leukocytes in Blood by Automated count N 0.4 % 0.0 % - 1.0 % June 17, 2024 11:26:00 PM UTC (TECH: RJV) 87345-8 Immature granulocytes [#/volume] in Blood N 0.8 % 0.0 % - 0.8 % June 11:26:00 PM UTC (TECH: RJV) 89697-1 Granulocytes [#/volume] in Blood by Automated count N 7.24 10^3/uL June 17, 2024 11:26:00 PM UTC (TECH: RJV) 731-0 Lymphocytes [#/volume] in Blood by Automated count N 2.47 10^3/uL June 17, 2024 11:26:00 PM UTC (TECH: RJV) 742-7 Monocytes [#/volume] in Blood by Automated count N 1.00 10^3/uL June 17, 2024 11:26:00 PM UTC (TECH: RJV) 711-2 Eosinophils [#/volume] in Blood by Automated count N 0.28 10^3/uL June 17, 2024 11:26:00 PM UTC (TECH: RJV) 704-7 Basophils [#/volume] in Blood by Automated count N 0.04 10^3/uL June 17, 2024 11:26:00 PM UT (TECH: Top100.cn) 15401-7 Immature granulocytes [#/volume] in Blood N 0.09 10^3/uL June 11:26:00 PM UT (TECH: Top100.cn) 22559-0 Manual differential performed [Presence] in Blood N NO June 17, 2024 11:26:00 PM UT (TECH: Top100.cn) ORDER 200: COMP METABOLIC PA MARLEY (LOINC: 50701-1) ORDER DATE: June 17, 2024 11:08:00 PM UT Specimen Source: Plasma Specimen Type: Plasma specim en PERFORMING LAB: [address] [id number] Result Comment: Final Result Date: June 17, 2024 11:49:00 PM UT (TECH: Top100.cn) LOINC TEST FLAG RESULT REFERENCE RANGE UPDA KRISSY BY 2951-2 Sodium [Moles/volume ] in Serum or Plasma L 134 mmol/L 136 mmol/L - 145 mmol/L June 17, 2024 11:49:00 PM UT (TECH: Top100.cn) 2823-3 Potassium [Moles/volume] in Serum or Plasma N 4.9 mmol/L 3.5 mmol/L - 5.1 mmol/L June 17, 2024 11:49:00 PM UT (TECH: NotoriousV) 2075-0 Chloride [Moles/volume] in Serum or Plasma N 98 mmol/L 98 mmol/L - 107 mmol/L June 17, 2024 11:49:00 PM UT (TECH: Top100.cn) 8-9 Carbon dioxide, tota l [Moles/volume] in Serum or Plasma H 33 mmol/L 21 mmol/L - 32 mmol/L June 17, 2024 11:49:00 PM UT (TECH: Top100.cn) 57496-2 Anion gap 3 in Serum or Plasma N 3.0 June 17, 2024 11:49:00 PM UT (TECH: NotoriousV) 2345-7 Glucose [Mass/volume ] in Serum or Plasma N 100 mg/dL 70 mg/dL - 110 mg/dL June 17, 2024 11:49:00 PM UTC (TECH: Top100.cn) 3094-0 Urea nitrogen [Mass/volume] in Serum or Plasma N 12 mg/dL 7 mg/dL - 18 mg/dL June 17, 2024 11:49:00 PM UT (TECH: Top100.cn) 2160-0 Creatinine [Mass/volume] in Serum or Plasma N 0.6 mg/dL 0.6 mg/dL - 1.0 mg/dL June 17, 2024 11:49:00 PM [facility] (TECH: Top100.cn) 3097-3 Urea nitrogen/Creatinine [Mass Ratio] in Serum or Plasma N 20.0 Ratio 9 Ratio - 21 Ratio June 17, 2024 11:49:00 PM [facility] (TECH: Top100.cn) 15192-1 Glomerular filtratio n rate/1.73 sq M.predicted by Creatinine-based formula (MDRD) N 106 mL/min >60 June 17, 2024 11:49:00 PM [facility] (MasCupon: Top100.cn) 2885-2 Protein [Mass/volume ] in Serum or Plasma N 7.9 g/dL 6.4 g/dL - 8.2 g/dL June 17, 2024 11:49:00 PM [facility] (MasCupon: Top100.cn) 1751-7 Albumin [Mass/volume ] in Serum or Plasma L 2.6 g/dL 3.4 g/dL - 5.0 g/dL June 17, 2024 11:49:00 PM [facility] (TECH: Top100.cn) 44918-1 Calcium [Mass/volume ] in Serum or Plasma N 9.2 mg/dL 8.5 mg/dL - 10.1 mg/dL June 17, 2024 11:49:00 PM [facility] (MasCupon: Top100.cn) 24450-5 Calcium [Mass/volume ] corrected for total protein in Serum or Plasma H 10.3 mg/dL 8.5 mg/dL - 10.1 mg/dL June 17, 2024 11:49:00 PM [facility] (TECH: Top100.cn) 1975-2 Bilirubin.total [Mass/volume] in Serum or Plasma N 0.5 mg/dL 0.4 mg/dL - 1.5 mg/dL June 17, 2024 11:49:00 PM [facility] (TECH: Top100.cn) 1920-8 Aspartate aminotransferase [Enzymatic activity/volume] in Serum or Plasma N 16 U/L 15 U/L - 37 U/L June 17, 2024 11:49:00 PM [facility] (TECH: Top100.cn) 1742-6 Alanine aminotransferase [Enzymatic activity/volume] in Serum or Plasma N 15 U/L 12 U/L - 78 U/L June 17, 2024 11:49:00 PM UTC (TECH: RJV) 6768-6 Alkaline phosphatase [Enzymatic activity/volume] in Serum or Plasma H 135 U/L 50 U/L - 120 U/L June 17, 2024 11:49:00 PM UTC (TECH: RJV) ORDER 300: LACTIC ACID (LOIN C: 53242-1) ORDER DATE: June 17, 2024 11:08:00 PM UTC Specimen Source: Serum/Plasm a Specimen Type: Acellular blo od (serum or plasma) specimen PERFORMING LAB: [address] [id number] Result Comment: Final Result Date: June 17, 2024 11:42:00 PM UT (TECH: RJV) LOINC TEST FLAG [place] [address]-2 Lactate [Mass/volume] in Serum or Plasma N 0.7 mmole/L 0.4 mmole/L - 2.0 mmole/L June 17, 2024 11:42:00 PM UT (TECH: RJV) ORDER 400: SEDIMENTATION RAT E (LOINC: 88822-9) ORDER DATE: June 17, 2024 11:08:00 PM UTC Specimen Source: Whole Blood Specimen Type: Whole blood s ample PERFORMING LAB: [address] [id number] Result Comment: Final Result Date: June 18, 2024 12:35:00 AM UT (TECH: RJV) LOINC TEST FLAG [place] [address]-3 Erythrocyte sedimentation rate H 38 mm/Hr 0 mm/Hr - 30 mm/Hr June 18, 2024 12:35:00 AM UT (TECH: RJV) ORDER 500: C-REACTIVE PROTEI N (LOINC: 1988-01) ORDER DATE: June 17, 2024 11:08:00 PM UTC Specimen Source: Plasma Specimen Type: Plasma specim en PERFORMING LAB: [address] [id number] Result Comment: Final Result Date: June 17, 2024 11:49:00 PM UT (TECH: RJV) LOINC TEST FLAG RESULT REFERENCE RANGE UPDA KRISSY BY 1988-01 C reactive protein [Mass/volume] in Serum or Plasma H 2.00 mg/dL 0.05 mg/dL - 0.300 mg/dL June 17, 2024 11:49:00 PM UTC (TECH: Top100.cn) ORDER 600: TROPONIN QUANT (L OINC: 75292-6) ORDER DATE: June 17, 2024 11:08:00 PM UTC Specimen Source: Plasma Specimen Type: Plasma specim en PERFORMING LAB: [address] [id number] Result Comment: Final Result Date: June 17, 2024 11:42:00 PM UTC (TECH: NotoriousV) LOINC TEST FLAG [place]ULT [place] [address]-3 Troponin I.cardiac panel - Serum or Plasma by High sensitivity method N 5 ng/L 0 ng/L - 51 ng/L June 11:42:00 PM UTC (TECH: NotoriousV) ORDER 700: UA AND MICRO/CULT IF INDICATED (LOINC: 63921-6) ORDER DATE: June 17, 2024 11:08:00 PM UTC Specimen Source: URINE Specimen Type: Urine specime n PERFORMING LAB: [address] [id number] Result Comment: Final Result Date: June 18, 2024 12:44:00 AM UTC (TECH: Top100.cn) LOINC TEST FLAG RESULT REFERENCE RANGE UPDA KRISSY BY 5778-6 Color of Urine N YELLOW YELLOW Septe banner 2023 12:44:00 AM UTC (TECH: NotoriousV) 5767-9 Appearance of Urine N CLEAR CLEAR June 18, 2024 12:44:00 AM UTC (TECH: NotoriousV) 5792-7 Glucose [Mass/volume ] in Urine by Test strip N NORM NORMAL June 18, 2024 12:44:00 AM UTC (TECH: Top100.cn) 04640-7 Bilirubin.total [Mass/volume] in Urine by Automated test strip N NEGATIVE NEGATIVE June 18 12:44:00 AM UTC (TECH: NotoriousV) 5797-6 Ketones [Mass/volume ] in Urine by Test strip N NEGATIVE NEGATIVE June 18, 2024 12:44:00 AM UTC (TECH: NotoriousV) 2965-2 Specific gravity of Urine N 1.005 1.005 - 1.035 June 18 12:44:00 AM UTC (TECH: RJV) 12191-9 Erythrocytes [#/volume] in Urine by Automated test strip N 25 (1+) /mcL NEGATIVE June 012023 12:44:00 AM UTC (TECH: Top100.cn) 13663-7 pH of Urine by Automated test strip N 6.50 5.0 - 7.5 June 012023 12:44:00 AM UTC (TECH: Top100.cn) 94388-8 Protein [Presence] i n Urine by Test strip N 100 (2+) mg/dL NEGATIVE June 12:44:00 AM UTC (TECH: Top100.cn) 35855-4 Urobilinogen [Mass/volume] in Urine by Automated test strip N NORM NORMAL June 18 12:44:00 AM UTC (TECH: Top100.cn) 45391-6 Nitrate [Presence] i n Urine N NEGATIVE NEGATIVE June 18 12:44:00 AM UTC (TECH: Top100.cn) 46226-2 Leukocytes [#/volume ] in Urine by Test strip N NEGATIVE NEGATIVE June 18, 2024 12:44:00 AM UTC (TECH: Top100.cn) 32025-3 Other elements in Urine sediment N NOT REQUIRED June 18 12:44:00 AM UTC (TECH: Top100.cn) 72410-3 Microscopic observation [Identifier] in Urine sediment by Light microscopy N YES June 18 12:44:00 AM UTC (TECH: Top100.cn) 55057-9 Erythrocytes [#/area ] in Urine sediment by Microscopy high power field N RARE 0-3 June 18 12:44:00 AM UTC (TECH: Top100.cn) 5821-4 Leukocytes [#/area] in Urine sediment by Microscopy high power field N RARE NONE SEEN June 18 12:44:00 AM UTC (TECH: Top100.cn) 60560-7 Epithelial cells.squamous [#/area] in Urine sediment by Microscopy high power field 10-20 NONE SEEN June 18 024 12:44:00 AM UTC (TECH: Top100.cn) 5769-5 Bacteria [#/area] in Urine sediment by Microscopy high power field N TRACE NONE SEEN June 18 12:44:00 AM UTC (TECH: Top100.cn) LABORATORY NARRATIVE RESULTS Information is not available RADIOLOGY RESULTS ORDER 900: CT EXTREM LWR RT W (LOINC: 34931-5) ORDER DATE: June 18, 2024 12:19:00 AM [facility] PERFORMING LAB: [address] [place] [id number] Final Result Date: June 18, 2024 2:19:[address] [place] [address] Name: NIKI TRIPLETT Exam Date: 06/17/2024 : 1970 Age 54 years Gender: F Physician: EMILIA RAMOS Facility: [facility] Facility HSV: Outpatient Exam: CT EXTREM LWR RT W FINAL REPORT TECHNIQUE: null CLINICAL HISTORY: rt foot pain, diabetic ulcer right foot x 6 months, worse pain last few days,, supposed to see wound care at but has not been recently COMPARISON: null FINDINGS: CT of the right foot and ankle with IV contrast: Comparison: None. Findings: There is diffuse moderate soft tissue swelling, worse involving the medial aspect of the distal lower leg and the dorsal aspect of the forefoot. No discrete fluid collection. No soft tissue gas or radiopaque foreign body. Significant skin thickening and ulceration lateral aspect of the foot near the base of the 5th metatarsal without bony erosive changes. Mild arthritic changes of the foot. IMPRESSION: Impression: 1. Moderate diffuse soft tissue swelling. 2. Skin thickening and ulceration lateral aspect of the proximal forefoot adjacent to the base of the 5th metatarsal without bony erosive changes. 3. Other findings above. Authenticated and EASTERN Dictated By: TALIA FREEMAN Transcribed By: Transcribed On: 06/17/2024 10:19 PM Electronically signed by: TALIA FREEMAN 06/17/2024 Thank you for referring NIKI TRIPLETT to [facility]. Legally authenticated by ORI Rivers MD 2024-06-17 22:19:49 PATHOLOGY NARRATIVE RESULTS Information is not available MICROBIOLOGY RESULTS No Micro Labs/Results Exist for Patient BLOOD ADMIN RESULTS Information is not available MEDICATIONS HOME MEDICATIONS Status RXNORM [facility] Medication Dose Route Frequency Dates Comments Reported By Updated By Drug Treatment Unknown DISCHARGE MEDICATIONS Status RXNORM ND Medication Dose Route Frequency Dates Comments Physician Updated By No Discharge Medication Info rmation Available INPATIENT MEDICATIONS Status RXNORM [facility] Medication Dose Route Frequency Rat e Quantity Dates Comments Physician Updated By Discont inued [id number] diphenhydrA MINE (BENADRYL) 50 MG/ML SOLN 50.0 MG INTRAV ENOUS ONE TIME ONLY Start: 2023 11:20: 00 PM [place] End: 2023 11:20: 00 PM [facility] on 2023 11:19:00 PM UT Discont inued [id number] 061 ACETAMINOPH EN EXTRA STRENGTH 500 MG TABS 500.0 MG ORAL ONE TIME ONLY Start: 2023 11:42: 00 PM UT End: 2023 11:42: 00 [facility] 11:41:00 PM UT Discont inued [id number] 0299 9128 331 HYDROmorpho ne (DILAUDID) 1 MG/ML SOLN 1.0 MG INTRAV ENOUS ONE TIME ONLY Start: 2023 2:19:0 0 AM UT End: 2023 2:19:0 0 AM [facility] 2:19:00 AM UT Discont inued [id number] [id number] 824 LEVOFLOXACI N IN D5W 750 MG/150ML SOLN 750.0 MG INTRAV ENOUS ONE TIME ONLY Start: 2023 2:25:0 0 AM UT End: 2023 2:25:0 0 [facility] 2:24:00 AM UT SOCIAL HISTORY SOCIAL HISTORY SNOMED-CT Social History Element Description Effective Dates Offered Cessation Comment UpdatedBy [id number] Historical Tobacco smoking status Current Every Day Smoker Refused [id number] on December 31, 2023 1:18:46 PM [place] [id number] Historical Tobacco smoking status Former Smoker End: February 09, 2016 4:00:00 AM UTC Not Applicable [id number] on February 08, 2018 6:30:33 AM UTC [id number] Historical Tobacco smoking status Never Smoked Not Applicable [id number] on November 03, 2016 9:23:18 PM UTC SOCIAL HISTORY - Gender Sex: Female SOCIAL HISTORY - Status : status i nformation is not available Intention in Next Year: intention information is not available SOCIAL HISTORY - Sexual Behavior Sexual Orientation Gender Identity SNOMED-CT Description SNO MED -CT Description Activity Level No of Partners Partner Type UpdatedBy Information is not available VITAL SIGNS PATIENT VITAL SIGNS This section displays the mo st recent value for each vital sign as of June 18, 2024 4:51:04 AM [facility] Code Vital Sign Activity Date Result Updated By 8310-5 Body temperature June 17 10:34:00 PM UTC 98.9 [degF] [id number] on June 17, 2024 10:35:[place] [address]-1 Body weight Measured June 012023 10:35:38 PM UTC 110.68 kg (244.0 lb) [id number] on June 17, 2024 10:35:38 PM UT 8462-4 Diastolic blood pressure June 18, 2024 3:34:00 AM UTC 67.0 mm[Hg] [id number] on June 18, 2024 3:51:23 AM UT 8867-4 Heart rate June 18 3:34:00 AM UTC 72 /min [id number] on June 18, 2024 3:51:23 [place] [address]-0 Oxygen saturation in Arterial blood by Pulse oximetry June 18, 2024 3:34:00 AM UTC 96.0 % [id number] on June 18, 2024 3:51:23 AM UT 9279-1 Respiratory rate June 17 10:34:00 PM UTC 17 /min [id number] on June 17, 2024 10:35:38 PM UT 8480-6 Systolic blood pressure June 18, 2024 3:34:00 AM UTC 148.0 mm[Hg] [id number] on June 18, 2024 3:51:23 AM UT PEDIATRIC GROWTH CHART - VITAL SIGNS This section displays Head C ircumference Percentile, Weight for Length Percentile and BMI Percentile Loinc Code Pediatric Measure Age (Months) Result Updat ed By No Pediatric Growth Chart Pe rcentile Information Available. HEALTH CONCERNS Problems Concern Status Health Concern problem infor mation not available. Smoking Status Status Years Used Consumed packs p er day Health Concern smoking histo ry information not available. Family History Concern Status Health Concern family histor y information not available. ENCOUNTERS ENCOUNTER INFORMATION Reason for Visit FOOT PAIN Admission June 17, 2024 10:26:[address] [address] Discharge June 18, 2024 3:51:00 AM UT DISCHARGED TO HOME OR SELF CARE ENCOUNTER DIAGNOSES Notes information is not gloria ilable. Code System Diagnosis Onset Date Diagnosis information is not available. ABSTRACT DIAGNOSES Code System Diagnosis Updated By Abstract Diagnosis informati on is not available. CARE TEAM Care [employer] Instruments Supervisor Role EMILIA RAMOS Primary Attending EMILIA RAMOS Admitting YUSUF KEYES Primary Care EMILIA RAMOS Referring CARE TEAM CARE activity coordinator Role on Team Status Start Date End Date Update d By RICHARD NIETO DO Referring normal June 012023 10:53:23 PM [facility] June 18, 2024 3:51:00 AM [facility] [id number] on June 17, 2024 10:53:23 PM [facility] RICHARD NIETO DO Attending normal June 012023 10:53:23 PM [facility] June 18, 2024 3:51:00 AM [facility] [id number] on June 17, 2024 10:53:23 PM [facility] RICHARD NIETO DO Admitting normal June 012023 10:53:23 PM [facility] June 18, 2024 3:51:00 AM [facility] [id number] on June 17, 2024 10:53:23 PM [facility] STEPHY DOYLE APRN PCP normal June 17, 2024 10:26:38 PM [facility] June 18, 2024 3:51:00 AM [facility] [id number] on June 17, 2024 10:53:23 PM [facility]
--- OUTSIDE RECORDS SUMMARY | 2024-07-15 11:15 | XMS_ITS | Continuity of Care Document ---
Author Organization [facility] Phone Care Team Providers Care Box Toe Maker Name Role Phone YUSUF KEYES Primary Care LUCHO FREEMAN Admitting LUCHO FREEMAN Unavailable LUCHO FREEMAN Primary Attending ALLERGIES AND ADVERSE REACTIONS ALLERGIES AND ADVERSE REACTIONS Code System Allergy Substance Adverse Reaction Date Reaction (Severity) Comment Status Reported By Updated By 5640 RXNorm IBUPROFEN Rash (Moderate) active [id number] on March 03, 2024 7:47:53 PM UT 2193 RXNorm Rocephin Rash (Moderate) active [id number] on March 03, 2024 7:47:53 PM UT 3645 RXNorm Inapsine Shortness of breath/diffic ulty breathing active [id number] on March 03, 2024 7:47:53 PM UTC 910287 RXNorm AVELOX Rash (Moderate) active [id number] on March 03, 2024 7:47:53 PM UTC FAMILY HISTORY RELATION: Father Status: LIVING SNOMED-CT Diagnosis Age At Onset [id number] Diabetes mellitus [id number] Hypertensive disorder [id number] Hypercholesterolemia 0613602 Arthritis RELATION: Mother Status: LIVING SNOMED-CT Diagnosis Age At Onset [id number] Diabetes mellitus [id number] Hypertensive disorder 81760055 Hypercholesterolemia 0448284 Arthritis RESULTS Patient: UZIEL Cheng Date of : 1970 LABORATORY RESULTS ORDER 100: CBC AUTO W DIFF ( LOINC: 36526-8) ORDER DATE: March 03, 2024 8:00:00 PM UTC Specimen Source: Whole Blood Specimen Type: Whole blood s ample PERFORMING LAB: [address] [id number] Result Comment: Final Result Date: March 03, 2024 8:16:00 PM UT (TECH: [place]) LOINC TEST FLAG RESULT REFERENCE RANGE UPDA KRISSY BY 6690-2 Leukocytes [#/volume] in Blood by Automated count N 8.9 10^3/uL 4.5 10^3/uL - 11.5 10^3/uL March 03, 2024 8:16:00 PM UTC ([employer]: [employer]) 789-8 Erythrocytes [#/volume] in Blood by Automated count N 5.07 10^6/uL 4.25 10^6/uL - 5.57 10^6/uL March 03, 2024 8:16:00 PM UTC ([employer]: [employer]) 718-7 Hemoglobin [Mass/volume] in Blood N 14.6 g/dL 12.0 g/dL - 15.7 g/dL March 03, 2024 8:16:00 PM UTC (TECH: [employer]) 25543-1 Hematocrit [Volume Fraction] of Blood N 44.7 % 36.0 % - 47.0 % March 03, 2024 8:16:00 PM UTC ([employer]: [employer]) 787-2 Erythrocyte mean corpuscular volume [Entitic volume] by Automated count N 88.2 fl 80 fl - 95 fl March 03, 2024 8:16:00 PM UTC (TECH: [employer]) 38917-4 Erythrocyte mean corpuscular hemoglobin [Entitic mass] in Blood from Fetus by Automated count N 28.8 pg 27.0 pg - 34.0 pg March 03, 2024 8:16:00 PM UTC (TECH: [employer]) 84865-2 Erythrocyte mean corpuscular hemoglobin concentration [Mass/volume] in Blood from Fetus by Automated count N 32.7 g/dL 32.0 g/dL - 36.0 g/dL March 03, 2024 8:16:00 PM UTC (TECH: [employer]) 85918-4 Platelets [#/volume] in Blood N 235 10^3/uL 150 10^3/uL - 450 10^3/uL March 03, 2024 8:16:00 PM UTC ([employer]: [employer]) 98594-2 Erythrocyte distribution width [Ratio] N 14.4 % 12.3 % - 15.1 % March 03, 2024 8:16:00 PM UTC (TECH: [employer]) 57101-8 Platelet mean volume [Entitic volume] in Blood by Automated count N 10.3 fl 7.4 fl - 10.4 fl March 03, 2024 8:16:00 PM UTC (TECH: [employer]) 00354-5 Granulocytes/100 leukocytes in Blood by Automated count N 67.4 % 40 % - 75 % March 03, 2024 8:16:00 PM UTC (TECH: KSM) 736-9 Lymphocytes/100 leukocytes in Blood by Automated count N 18.5 % 15 % - 57 % March 03, 2024 8:16:00 PM UTC (TECH: KSM) 5905-5 Monocytes/100 leukocytes in Blood by Automated count H 12.1 % 4.0 % - 12.0 % March 03, 2024 8:16:00 PM UTC (TECH: KSM) 713-8 Eosinophils/100 leukocytes in Blood by Automated count N 1.2 % 0.0 % - 4.0 % March 03, 2024 8:16:00 PM UTC (TECH: KSM) 706-2 Basophils/100 leukocytes in Blood by Automated count N 0.6 % 0.0 % - 1.0 % March 03, 2024 8:16:00 PM UTC (TECH: WeatherBugM) 06724-3 Immature granulocytes [#/volume] in Blood N 0.2 % 0.0 % - 0.8 % March 03, 2024 8:16:00 PM UTC (TECH: KSM) 99964-3 Granulocytes [#/volume] in Blood by Automated count N 6.00 10^3/uL March 03, 2024 8:16:00 PM UTC (TECH: KSM) 731-0 Lymphocytes [#/volume] in Blood by Automated count N 1.65 10^3/uL March 03, 2024 8:16:00 PM UTC (TECH: KSM) 742-7 Monocytes [#/volume] in Blood by Automated count N 1.08 10^3/uL March 03, 2024 8:16:00 PM UTC (TECH: KSM) 711-2 Eosinophils [#/volume] in Blood by Automated count N 0.11 10^3/uL March 03, 2024 8:16:00 PM UTC (TECH: KSM) 704-7 Basophils [#/volume] in Blood by Automated count N 0.05 10^3/uL March 03, 2024 8:16:00 PM UT (TECH: [employer]) 81817-0 Immature granulocytes [#/volume] in Blood N 0.02 10^3/uL March 03, 2024 8:16:00 PM UT (TECH: [employer]) 94261-8 Manual differential performed [Presence] in Blood N NO March 03, 2024 8:16:00 PM UT (TECH: [employer]) ORDER 200: COMP METABOLIC PA MARLEY (LOINC: 29705-8) ORDER DATE: March 03, 2024 8:00:00 PM UT Specimen Source: Plasma Specimen Type: Plasma specim en PERFORMING LAB: [address] [id number] Result Comment: Final Result Date: March 03, 2024 8:27:00 PM UT (TECH: [employer]) LOINC TEST FLAG RESULT REFERENCE RANGE UPDA KRISSY BY 2951-2 Sodium [Moles/volume ] in Serum or Plasma L 135 mmol/L 136 mmol/L - 145 mmol/L March 03, 2024 8:27:00 PM UT (TECH: [employer]) 2823-3 Potassium [Moles/volume] in Serum or Plasma N 4.4 mmol/L 3.5 mmol/L - 5.1 mmol/L March 03, 2024 8:27:00 PM UT (TECH: [employer]) 2075-0 Chloride [Moles/volu me] in Serum or Plasma N 100 mmol/L 98 mmol/L - 107 mmol/L March 03, 2024 8:27:00 PM UT (TECH: [employer]) 8-9 Carbon dioxide, tota l [Moles/volume] in Serum or Plasma N 29 mmol/L 21 mmol/L - 32 mmol/L March 03, 2024 8:27:00 PM UT (TECH: [employer]) 71664-8 Anion gap 3 in Serum or Plasma N 6.0 March 03, 2024 8:27:00 PM UT (TECH: [employer]) 2345-7 Glucose [Mass/volume ] in Serum or Plasma H 298 mg/dL 70 mg/dL - 110 mg/dL March 03, 2024 8:27:00 PM UTC (TECH: [employer]) 3094-0 Urea nitrogen [Mass/volume] in Serum or Plasma N 15 mg/dL 7 mg/dL - 18 mg/dL March 03, 2024 8:27:00 PM [facility] (TECH: [employer]) 2160-0 Creatinine [Mass/volume] in Serum or Plasma N 0.9 mg/dL 0.6 mg/dL - 1.0 mg/dL March 03, 2024 8:27:00 PM [facility] (TECH: [employer]) 3097-3 Urea nitrogen/Creatinine [Mass Ratio] in Serum or Plasma N 16.7 Ratio 9 Ratio - 21 Ratio March 03, 2024 8:27:00 PM [facility] (TECH: [employer]) 26926-8 Glomerular filtratio n rate/1.73 sq M.predicted by Creatinine-based formula (MDRD) N 69 mL/min >60 March 03, 2024 8:27:00 PM [facility] (TECH: [employer]) 2885-2 Protein [Mass/volume ] in Serum or Plasma N 8.0 g/dL 6.4 g/dL - 8.2 g/dL March 03, 2024 8:27:00 PM [facility] ([employer]: [employer]) 1751-7 Albumin [Mass/volume ] in Serum or Plasma L 2.6 g/dL 3.4 g/dL - 5.0 g/dL March 03, 2024 8:27:00 PM [facility] (TECH: [employer]) 71602-3 Calcium [Mass/volume ] in Serum or Plasma N 9.1 mg/dL 8.5 mg/dL - 10.1 mg/dL March 03, 2024 8:27:00 PM [facility] ([employer]: [employer]) 86819-7 Calcium [Mass/volume ] corrected for total protein in Serum or Plasma H 10.2 mg/dL 8.5 mg/dL - 10.1 mg/dL March 03, 2024 8:27:00 PM [facility] (TECH: [employer]) 1975-2 Bilirubin.total [Mass/volume] in Serum or Plasma N 0.4 mg/dL 0.4 mg/dL - 1.5 mg/dL March 03, 2024 8:27:00 PM [facility] (TECH: [employer]) 1920-8 Aspartate aminotransferase [Enzymatic activity/volume] in Serum or Plasma H 47 U/L 15 U/L - 37 U/L March 03, 2024 8:27:00 PM [facility] (TECH: KSM) 1742-6 Alanine aminotransferase [Enzymatic activity/volume] in Serum or Plasma N 49 U/L 12 U/L - 78 U/L March 03, 2024 8:27:00 PM UTC (TECH: KSM) 6768-6 Alkaline phosphatase [Enzymatic activity/volume] in Serum or Plasma H 212 U/L 50 U/L - 120 U/L March 03, 2024 8:27:00 PM UT (TECH: KSM) ORDER 500: LACTIC ACID (LOIN C: 60477-8) ORDER DATE: March 03, 2024 8:00:00 PM UTC Specimen Source: Serum/Plasm a Specimen Type: Acellular blo od (serum or plasma) specimen PERFORMING LAB: [place] [id number] Result Comment: Final Result Date: March 03, 2024 8:38:00 PM UT (TECH: KSM) LOINC TEST FLAG [place] [address]-9 Lactate [Mass/volume] in Serum or Plasma N 1.0 mmole/L 0.4 mmole/L - 2.0 mmole/L March 03, 2024 8:38:00 PM UT (TECH: KSM) ORDER 600: TROPONIN QUANT (L OINC: 78663-7) ORDER DATE: March 03, 2024 8:00:00 PM UTC Specimen Source: Plasma Specimen Type: Plasma specim en PERFORMING LAB: [address] [id number] Result Comment: Final Result Date: March 03, 2024 8:27:00 PM UT (TECH: KSM) LOINC TEST FLAG [place] [address]-9 Troponin I.cardiac panel - Serum or Plasma by High sensitivity method N 22 ng/L 0 ng/L - 51 ng/L March 03, 2024 8:27:00 PM UT (TECH: KSM) ORDER 700: B-TYPE NATRIURETI C PEPTIDE BNP (LOINC: 63128-8) ORDER DATE: March 03, 2024 8:00:00 PM UTC Specimen Source: Whole Blood Specimen Type: Whole blood s ample PERFORMING LAB: [address] [id number] Result Comment: Final Result Date: March 03, 2024 9:15:00 PM UT (TECH: KSM) LOINC TEST FLAG RESULT [place] [address]-2 Natriuretic peptide B [Mass/volume] in Serum or Plasma H 731.0 pg/mL 0.0 pg/mL - 100 pg/mL March 03, 2024 9:15:00 PM UTC (TECH: KSM) ORDER 900: GRAM STAIN (LOINC : 664-3) ORDER DATE: March 03, 2024 8:00:00 PM UTC Specimen Source: Culture Specimen Type: Culture - gen eral PERFORMING LAB: [address] [id number] Result Comment: March 03, 2024 8:44:00 PM UTC Sub-optimal specimen. Hold culture for 24 hrs. Final Result Date: March 03, 2024 8:44:00 PM UTC (TECH: KSM) LOINC TEST FLAG [place] [address]-7 Specimen source subj ect [Type] N SPUTUM March 03, 2024 8:44:00 PM UTC (TECH: KSM) 664-3 Microscopic observat ion [Identifier] in Unspecified specimen by Gram stain N GRAM POS COCCI March 03, 2024 8:44:00 PM UTC (TECH: KSM) 664-3 Microscopic observat ion [Identifier] in Unspecified specimen by Gram stain N RARE March 03, 2024 8:44:00 PM UTC (TECH: KSM) 664-3 Microscopic observat ion [Identifier] in Unspecified specimen by Gram stain N PAIRS March 03, 2024 8:44:00 PM UTC (TECH: KSM) 664-3 Microscopic observat ion [Identifier] in Unspecified specimen by Gram stain N GRAM POS SHERRI March 03, 2024 8:44:00 PM UTC (TECH: KSM) 664-3 Microscopic observat ion [Identifier] in Unspecified specimen by Gram stain N RARE March 03, 2024 8:44:00 PM UTC (TECH: KSM) 664-3 Microscopic observat ion [Identifier] in Unspecified specimen by Gram stain N SINGLY March 03, 2024 8:44:00 PM UTC (TECH: KSM) 92177-5 Leukocytes [Presence ] in Unspecified specimen by Gram stain N RARE March 03, 2024 8:44:00 PM UTC (TECH: KSM) 62070-8 Epithelial cells [Presence] in Unspecified specimen by Gram stain N 10-25 March 03, 2024 8:44:00 PM [facility] (TECH: [employer]) 50361-7 Yeast [Presence] in Unspecified specimen by Wet preparation N NONE SEEN March 03, 2024 8:44:00 PM [facility] (TECH: [employer]) 648-6 Microscopic observat ion [Identifier] in Sputum by Gram stain N SUB-OPTIMAL March 03, 2024 8:44:00 PM [facility] (TECH: [employer]) LABORATORY NARRATIVE RESULTS Information is not available RADIOLOGY RESULTS ORDER 1000: CT CHEST PE PROT OCOL (LOINC: 51528-7) ORDER DATE: March 03, 2024 8:00:00 PM [facility] PERFORMING LAB: [address] [id number] Final Result Date: March 03 9:54:[address] [place] [address] Name: NIKI TRIPLETT Exam Date: 03/03/2024 : 1970 Age 53 years Gender: F Physician: Facility: [facility] Facility HSV: Outpatient Exam: CT CHEST PE PROTOCOL FINAL REPORT TECHNIQUE: null CLINICAL HISTORY: Dyspnea x 1 day, current smoker, r/o PE COMPARISON: null FINDINGS: CT chest with contrast Comparison: None Findings: The heart is normal size. Enlarged pulmonary artery. This can be seen with pulmonary artery hypertension. Confluent soft tissue density throughout the mediastinum and william. No discrete lymph node is able to be identified. Spinal stimulator and intrathecal catheter noted in the thoracic region. Bronchial wall thickening and patchy opacity in the right lower lobe medial basilar segment with an associated platelike density likely representing atelectasis images 54-59. Mild scattered ground-glass opacities in both lungs, most evident in the left upper lobe and the right lung apex. No effusion or pneumothorax. There is periportal edema noted in the upper abdomen. The bones are intact. IMPRESSION: IMPRESSION: 1. No acute pulmonary embolus. 2. Multifocal lung opacities favor an infectious etiology. Follow-up as needed. 3. Right lower lobe medial basilar segment probable platelike atelectasis. Three-month follow-up would be helpful to assure resolution. 4. Nonspecific periportal edema. This can be seen with rapid infusion of IV fluids, and hepatitis. Authenticated and [facility] Dictated By: Talita Stoddard Transcribed By: Transcribed On: 03/03/2024 5:54 PM Electronically signed by: Talita Stoddard 03/03/2024 Thank you for referring NIKI TRIPLETT to [facility]. Legally authenticated by JUDD Nunez MD 2024-03-03 17:54:44 PATHOLOGY NARRATIVE RESULTS Information is not available MICROBIOLOGY RESULTS No Micro Labs/Results Exist for Patient BLOOD ADMIN RESULTS Information is not available TREATMENT PLAN DISCHARGE MEDICATIONS Status RXNORM Medication Dose Route Frequency Dates Comments U pdated By Patient discharge medication information is not available. PATIENT OPEN ORDERS Code System Description Frequency Occurrences Priority Start Date Ordering Physician Updated By 600-7 LOINC Bacteria identified in Blood by Culture ONE TIME 0 Stat March 03, 2024 8:00:00 PM [facility] PETE Salas MD [id number] on March 03, 2024 8:00:00 PM [facility] 600-7 LOINC Bacteria identified in Blood by Culture ONE TIME 0 Stat March 03, 2024 8:00:00 PM [facility] PETE Salas MD 3726 on March 03, 2024 8:00:00 PM [facility] 6460-0 LOINC Bacteria identified in Sputum by Culture ONE TIME 0 Stat March 03, 2024 8:00:00 PM [facility] PETE Salas MD 3726 on March 03, 2024 8:00:00 PM [facility] 23599-1 LOINC Gas panel - Arterial blood ONE TIME 0 Stat March 03, 2024 9:07:00 PM [facility] PETE Salas MD [id number] on March 03, 2024 9:07:00 PM [facility] SCHEDULED PROCEDURES Code System Description Status Scheduled Date Upd ated By Patient scheduled procedure information is not available. MEDICATIONS HOME MEDICATIONS Status RXNORM NDC Medication Dose Route Frequency Dates Comments Reported By Updated By Drug Treatment Unknown DISCHARGE MEDICATIONS Status RXNORM NDC Medication Dose Route Frequency Dates Comments Physician Updated By No Discharge Medication Info rmation Available INPATIENT MEDICATIONS Status RXNORM NDC Medication Dose Route Frequency Rat e Quantity Dates Comments Physician Updated By Zuri inued [id number] 3621 1032 608 nitroglycer in oint (NITRO-BID) 2 % OINT 1.0 IN TOPICA L ONE TIME ONLY Start: March 03, 2024 8:06:0 0 PM UTC End: March 03, 2024 8:06:0 0 PM UTC PETE Salas MD INTERFAC ED on March 03, 2024 8:05:00 PM UTC Discont inued [id number] 4540 9610 204 furosemide 40mg vial (LASIX) 10 MG/ML SOLN 40.0 MG INTRAV ENOUS ONE TIME ONLY Start: March 03, 2024 8:06:0 0 PM UTC End: March 03, 2024 8:06:0 0 PM UTC PETE Salas MD INTERFAC ED on March 03, 2024 8:05:00 PM UTC Discont inued [id number] 5792 3023 803 METHYLPREDN ISOLONE SODIUM SUCC 125 MG SOLR 125.0 MG INTRAV ENOUS ONE TIME ONLY Start: March 03, 2024 8:06:0 0 PM UTC End: March 03, 2024 8:06:0 0 PM UTC PETE Salas MD INTERFAC ED on March 03, 2024 8:05:00 PM UTC Discont inued [id number] 0282 7020 101 DUONEB 0.5-2.5 MG/3 ML SOLN 1.0 NEB INHALE D ONE TIME ONLY Start: March 03, 2024 8:14:0 0 PM UTC End: March 03, 2024 8:14:0 0 PM UTC PETE Salas MD INTERFAC ED on March 03, 2024 8:12:00 PM UTC Discont inued [id number] 2652 3039 810 azithromyci n (ZITHROMAX) 500 MG SOLR 500.0 MG INTRAV ENOUS ONE TIME ONLY Start: March 03, 2024 8:28:0 0 PM UTC End: March 03, 2024 8:28:0 0 PM UTC PETE Salas MD INTERFAC ED on March 03, 2024 8:27:00 PM UTC Discont inued [id number] 3779 7020 101 DUONEB 0.5-2.5 MG/3 ML SOLN 1.0 NEB INHALE D ONE TIME ONLY Start: March 03, 2024 9:14:0 0 PM UTC End: March 03, 2024 9:14:0 0 PM UTC PETE Salas MD INTERF ED on March 03, 2024 9:12:00 PM UTC SOCIAL HISTORY SOCIAL HISTORY SNOMED-CT Social History Element Description Effective Dates Offered Cessation Comment UpdatedBy [id number] Historical Tobacco smoking status Current Every Day Smoker Refused [id number] on December 31, 2023 1:18:46 PM UTC [id number] Historical Tobacco smoking status Former Smoker End: February 09, 2016 4:00:00 AM UTC Not Applicable [id number] on February 08, 2018 6:30:33 AM UTC [id number] Historical Tobacco smoking status Never Smoked Not Applicable [id number] on November 03, 2016 9:23:18 PM UTC [...] value for each vital sign as of March 03, 2024 11:34:04 PM UT Loinc Code Vital Sign Activity Date Result Updated By 8310-5 Body temperature March 03, 2024 7: 45:00 PM UTC 98.8 [degF] [id number] on March 03, 2024 8:12:59 PM UT 8462-4 Diastolic blood pressure March 03, 2024 9:45:00 PM UTC 91.0 mm[Hg] [id number] on March 03, 2024 10:01:41 PM UT 8867-4 Heart rate March 03, 2024 9:5 7:00 PM UTC 81 /min [id number] on March 03, 2024 10:01:[place] [address]-7 Oxygen saturation in Arterial blood by Pulse oximetry March 03, 2024 9:57:00 PM UTC 95.0 % [id number] on March 03, 2024 10:01:42 PM UT 9279-1 Respiratory rate March 03, 2024 9: 04:00 PM UTC 18 /min [id number] on March 03, 2024 9:08:08 PM UT 8480-6 Systolic blood pressure March 03, 2024 9:45:00 PM [facility] 162.0 mm[Hg] [id number] on March 03, 2024 10:01:41 PM [facility] PEDIATRIC GROWTH CHART - VITAL SIGNS This [...] available. ENCOUNTERS ENCOUNTER INFORMATION Reason for Visit SHORTNESS OF BREATH Admission March 03, 2024 7:42:[address] [id number] Discharge March 03, 2024 10:34:00 PM [facility] LEF T AGAINST ADVICE OR DISCONTINUED ENCOUNTER DIAGNOSES Notes information is not gloria ilable. Code System Diagnosis Onset Date Diagnosis information is not available. ABSTRACT DIAGNOSES Code System Diagnosis Updated By Abstract Diagnosis informati on is not available. 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 Role on Team Status Start Date End Date Update d By PETE Salas MD Referring normal March 03 8:08:07 PM [facility] March 03, 2024 10:34:00 PM [facility] [id number] on March 03, 2024 8:08:07 PM [facility] PETE Salas MD Attending normal March 03 8:08:07 PM [facility] March 03, 2024 10:34:00 PM [facility] [id number] on March 03, 2024 8:08:07 PM [facility] PETE Salas MD Admitting normal March 03 8:08:07 PM [facility] March 03, 2024 10:34:00 PM [facility] [id number] on March 03, 2024 8:08:07 PM [facility] STEPHY DOYLE AUDIOMETRIST PCP normal March 03, 2024 7:43:04 PM [facility] March 03, 2024 10:34:00 PM [facility] [id number] on March 03, 2024 8:08:07 PM [facility]
--- OUTSIDE RECORDS SUMMARY | 2024-07-15 11:15 | XMS_ITS | Continuity of Care Document ---
Author Organization [facility] Phone Care Team Providers Care Manager Site Name Role Phone LUCHO FREEMAN Admitting LUCHO FREEMAN Unavailable YUSUF EKYES Primary Care LUCHO FREEMAN Primary Attending ALLERGIES AND ADVERSE REACTIONS ALLERGIES AND ADVERSE REACTIONS Code System Allergy Substance Adverse Reaction Date Reaction (Severity) Comment Status Reported By Updated By 5640 RXNorm IBUPROFEN Rash (Moderate) active [id number] on January 21, 2024 3:09:05 AM [facility] 2193 RXNorm Rocephin Rash (Moderate) active [id number] on January 21, 2024 3:09:05 AM [facility] 3648 RXNorm Inapsine Shortness of breath/diffic ulty breathing active [id number] on January 21, 2024 3:09:05 AM [facility] 294042 RXNorm AVELOX Rash (Moderate) active [id number] on January 21, 2024 3:09:05 AM [facility] FAMILY HISTORY RELATION: Father Status: LIVING SNOMED-CT Diagnosis Age At Onset [id number] Diabetes mellitus [id number] Hypertensive disorder [id number] Hypercholesterolemia 2591188 Arthritis RELATION: Mother Status: LIVING SNOMED-CT Diagnosis Age At Onset [id number] Diabetes mellitus [id number] Hypertensive disorder [id number] Hypercholesterolemia 2171689 Arthritis TREATMENT PLAN DISCHARGE MEDICATIONS Status RXNORM Medication Dose Route Frequency Dates Comments U pdated By Patient discharge medication information is not available. PATIENT OPEN ORDERS Code System Description Frequency Occurrences Priority [place] [address]-2 [place]INC Hand - left X-ray 3 views ONE TIME 0 Stat January 21, 2024 3:19:00 AM [facility] PETE Salas MD [id number] on January 21, 2024 3:32:00 AM [facility] 50275-7 LOINC Radius - left and Ulna.left X-ray 2 views ONE TIME 0 Stat January 21, 2024 3:19:00 AM [facility] PETE Salas MD [id number] on January 21, 2024 3:32:00 AM [facility] SCHEDULED PROCEDURES Code System Description Status Scheduled Date Upd ated By Patient scheduled procedure information is not available. MEDICATIONS HOME MEDICATIONS Status RXNORM [facility] Medication Dose Route Frequency Dates Comments Reported By Updated By Active [id number] 03631 04682 9 Prateekagljasmin MoJuancarlos U-100 Insulin 100 unit/mL (3 mL) Insulin Pen 10.0 UNT SUBCUT ANEOUS DAILY Last Dose: [id number] on January 21, 2024 3:09:06 AM [facility] Active 009046 71092 25489 1 benzonatate 100 mg capsule 1.0 CAP BY MOUTH DAILY Last Dose: [id number] on January 21, 2024 3:09:06 AM [facility] Active 056150 26261 80835 0 carvedilol 25 mg tablet 1.0 TAB BY MOUTH BID Last Dose: [id number] on January 21, 2024 3:09:07 AM [facility] Active FreeT extMe d dilaudid 0.5mg q 3hrs per internal pain pump ' 0.0 Q3H Last Dose: [id number] on January 21, 2024 3:09:07 AM [facility] Active FreeT extMe d duloxetine 60 mg Capsule, Delayed Release Sprinkle 1.0 CAP BY MOUTH DAILY Last Dose: [id number] on January 21, 2024 3:09:07 AM [facility] Active 538765 87388 78589 7 fenofibrate 54 mg tablet 1.0 TAB BY MOUTH DAILY Last Dose: [id number] on January 21, 2024 3:09:07 AM [facility] Active 854334 18444 06194 1 furosemide 80 mg tablet 1.0 TAB BY MOUTH BID Last Dose: [id number] on January 21, 2024 3:09:07 AM [facility] Active 718103 79780 02097 1 gabapentin (NEURONTIN) 400.0 MG BY MOUTH TID Last Dose: [id number] on January 21, 2024 3:09:08 AM [facility] Active 696857 09387 01636 1 Humulin R Regular U-100 Insuln 100 unit/mL solution 0.0 Last Dose: sliding scale [id number] on January 21, 2024 3:09:08 AM [facility] Active 520680 32620 24371 1 isosorbide mononitrate 30 mg Tablet, Extended Release 24 hr 1.0 TAB BY MOUTH DAILY Last Dose: [id number] on January 21, 2024 3:09:08 AM [facility] Active 432342 28912 35011 9 losartan 100 mg tablet 1.0 TAB BY MOUTH DAILY Last Dose: [id number] on January 21, 2024 3:09:08 AM [facility] Active 323556 37129 75968 1 Novolin 70/30 U-100 Insulin 100 unit/mL (70-30) suspension 0.0 SUBCUT ANEOUS BID Last Dose: [id number] on January 21, 2024 3:09:08 AM [facility] Active 241417 74151 66194 0 ropinirole 3 mg tablet 1.0 TAB BY MOUTH BEDTIME Last Dose: [id number] on January 21, 2024 3:09:09 AM [facility] Active 882846 17551 81472 0 simvastatin 80 mg tablet 1.0 TAB BY MOUTH DAILY Last Dose: [id number] on January 21, 2024 3:09:09 AM [facility] Active 158353 92885 34393 0 Synthroid 88 mcg tablet 1.0 TAB BY MOUTH DAILY Last Dose: [id number] on January 21, 2024 3:09:09 AM [facility] Active 749712 63788 96759 1 tizanidine 4 mg capsule 1.0 CAP BY MOUTH BID Last Dose: [id number] on January 21, 2024 3:09:09 AM [facility] Active 294613 87453 58546 3 trazodone 50 mg tablet 50.0 MG BY MOUTH BEDTIME Last Dose: [id number] on January 21, 2024 3:09:09 AM [facility] DISCHARGE MEDICATIONS Status RXNORM [facility] Medication Dose Route Frequency Dates Comments Physician Updated By No Discharge Medication Info rmation Available INPATIENT MEDICATIONS Status RXNORM [facility] Medication Dose Route Frequency Rat e Quantity Dates Comments Physician Updated By [facility] [id number] 0684 9099 120 traMADol (ULTRAM) 50 MG TABS 50.0 MG BY MOUTH ONE TIME ONLY Start: January 21, 2024 3:42:0 0 AM [facility] End: January 21, 2024 3:42:0 0 AM [facility] PETE Salas MD INTERFAC ED on January 21, 2024 3:42:00 AM UTC SOCIAL HISTORY SOCIAL HISTORY SNOMED-CT Social History Element Description Effective Dates Offered Cessation Comment UpdatedBy [id number] Historical Tobacco smoking status Current Every Day Smoker Refused [id number] on December 31, 2023 1:18:46 PM [place] 8150251 Historical Tobacco smoking status Former Smoker End: February 09, 2016 4:00:00 AM [place] Not Applicable [id number] on February 08, 2018 6:30:33 AM [place] [id number] Historical Tobacco smoking status Never Smoked Not Applicable [id number] on November 03, 2016 9:23:18 PM [place] SOCIAL HISTORY - Gender Sex: Female SOCIAL [...] value for each vital sign as of January 21, 2024 4:52:03 AM [place] Loinc Code Vital Sign Activity Date Result Updated By 8310-5 Body temperature January 21, 2024 2:56:00 AM [place] 97.1 [degF] [id number] on January 21, 2024 3:00:45 AM [place] 8462-4 Diastolic blood pressure January 21, 2024 3:32:00 AM UTC 77.0 mm[Hg] [id number] on January 21, 2024 3:33:12 AM [place] 8867-4 Heart rate January 21, 2024 2:56:00 AM UTC 91 /min [id number] on January 21, 2024 3:00:45 AM [facility] 81181-5 Oxygen saturation in Arterial blood by Pulse oximetry January 21, 2024 2:56:00 AM [place] 97.0 % [id number] on January 21, 2024 3:00:45 AM [place] 9279-1 Respiratory rate January 21, 2024 2:56:00 AM UTC 20 /min [id number] on January 21, 2024 3:00:45 AM [place] 8480-6 Systolic blood pressure December 3:32:00 AM UTC 180.0 mm[Hg] [id number] on January 21, 2024 3:33:12 AM [facility] PEDIATRIC GROWTH CHART - VITAL SIGNS [...] available. ENCOUNTERS ENCOUNTER INFORMATION Reason for Visit HAND PAIN Admission January 21, 2024 2:46:[address] [address] Discharge January 21, 2024 3:52:00 AM [facility] DI SCHARGED TO HOME OR SELF CARE ENCOUNTER DIAGNOSES Notes information is not gloria ilable. Code System Diagnosis Onset Date Diagnosis information is not available. ABSTRACT DIAGNOSES Code System Diagnosis Updated By Abstract Diagnosis informati on is not available. CARE TEAM Care Manager Site Role LUCHO FREEMAN Admitting LUCHO FREEMAN Referring YUSUF KEYES Primary Care LUCHO FREEMAN Primary Attending CARE TEAM CARE tester wafer substrate Role on Team Status Start Date End Date Update d By PETE Salas MD Referring normal January 21, 2024 3:08:35 AM [facility] January 21, 2024 3:52:00 AM [facility] [id number] on January 21, 2024 3:08:35 AM [facility] PETE Salas MD Attending normal January 21, 2024 3:08:35 AM [facility] January 21, 2024 3:52:00 AM [facility] [id number] on January 21, 2024 3:08:35 AM [facility] PETE Salas MD Admitting normal January 21, 2024 3:08:35 AM [facility] January 21, 2024 3:52:00 AM [facility] [id number] on January 21, 2024 3:08:35 AM [facility] STEPHY DOYLE APRN PCP normal January 21, 2024 2:46:57 AM [place] January 21, 2024 3:52:00 AM [facility] [id number] on January 21, 2024 3:08:35 AM [facility]
--- OUTSIDE RECORDS SUMMARY | 2024-07-15 11:15 | XMS_ITS | Continuity of Care Document ---
Author Organization [facility] Phone Care Team Providers Care Technical Planner Name Role Phone NANCY KERN Primary Attending [phone] NANCY KERN Admitting NANCY KERN Unavailable YUSUF KEYES Primary Care ALLERGIES AND ADVERSE REACTIONS ALLERGIES AND ADVERSE REACTIONS Code System Allergy Substance Adverse Reaction Date Reaction (Severity) Comment Status Reported By Updated By 5640 RXNorm IBUPROFEN Rash (Moderate) active [id number] on December 30, 2023 4:02:53 AM UTC 2193 RXNorm Rocephin Rash (Moderate) active [id number] on December 30, 2023 4:02:53 AM UTC 3648 RXNorm Inapsine Shortness of breath/diffic ulty breathing active [id number] on December 30, 2023 4:02:53 AM UTC 099267 RXNorm AVELOX Rash (Moderate) active [id number] on December 30, 2023 4:02:53 AM UTC ASSESSMENTS Peripheral venous insufficiency ; Edema due to fluid overload ; FAMILY HISTORY RELATION: Father Status: LIVING SNOMED-CT Diagnosis Age At Onset [id number] Diabetes mellitus [id number] Hypertensive disorder [id number] Hypercholesterolemia 2591034 Arthritis RELATION: Mother Status: LIVING SNOMED-CT Diagnosis Age At Onset [id number] Diabetes mellitus [id number] Hypertensive disorder [id number] Hypercholesterolemia 2084557 Arthritis FUNCTIONAL STATUS Note Title Nurse Discharge Note Date Of Service December 31, 2023 8:40:1 0 PM UTC Created By [id number] on December 31, 2023 8:40:10 PM UTC Signed By [id number] on December 31, 2023 8:40:41 PM UTC FUNCTIONAL STATUS Section: Functional Status Comments: Description SNOMED_CT Value Comments No functional deficits identified [id number] true MENTAL STATUS Note Title Nurse Discharge Note Date Of Service December 31, 2023 8:40:1 0 PM UTC Created By [id number] on December 31, 2023 8:40:10 PM UTC Signed By [id number] on December 31, 2023 8:40:41 PM UTC MENTAL STATUS Section: Cognitive Status Comments: Description SNOMED_CT Value Comments Alert [id number] true Oriented x4 [id number] true PROBLEMS PATIENT PROBLEMS Code Description/Comments Category Status Upda krissy By [id number] Peripheral venous insufficiency acti ve [id number] on December 30, 2023 3:26:31 AM UTC [id number] Edema due to fluid overload active [email or web address] on December 30, 2023 3:27:17 AM UTC RESULTS Patient: UZIEL Cheng Date of : 1970 LABORATORY RESULTS ORDER 100: CBC AUTO W DIFF ( LOINC: 69068-2) ORDER DATE: December 30, 2023 1:45:00 AM UTC Specimen Source: Whole Blood Specimen Type: Whole blood s ample PERFORMING LAB: [address] [id number] Result Comment: Final Result Date: December 30, 2023 1:55:00 AM UTC (TECH: [facility]) LOINC TEST FLAG RESULT REFERENCE RANGE UPDA KRISSY BY 6690-2 Leukocytes [#/volume] in Blood by Automated count N 10.9 10^3/uL 4.5 10^3/uL - 11.5 10^3/uL December 30, 2023 1:55:00 AM UTC (TECH: [facility]) 789-8 Erythrocytes [#/volume] in Blood by Automated count N 4.74 10^6/uL 4.25 10^6/uL - 5.57 10^6/uL December 30, 2023 1:55:00 AM UTC (TECH: [facility]) 718-7 Hemoglobin [Mass/volume] in Blood N 13.6 g/dL 12.0 g/dL - 15.7 g/dL December 30, 2023 1:55:00 AM UTC (TECH: [facility]) 97015-5 Hematocrit [Volume Fraction] of Blood N 40.3 % 36.0 % - 47.0 % December 29 1:55:00 AM UTC (TECH: [facility]) 787-2 Erythrocyte mean corpuscular volume [Entitic volume] by Automated count N 85.0 fl 80 fl - 95 fl December 30, 2023 1:55:00 AM UTC (TECH: [employer]) 45949-2 Erythrocyte mean corpuscular hemoglobin [Entitic mass] in Blood from Fetus by Automated count N 28.7 pg 27.0 pg - 34.0 pg December 30, 2023 1:55:00 AM UTC (TECH: [employer]) 21236-7 Erythrocyte mean corpuscular hemoglobin concentration [Mass/volume] in Blood from Fetus by Automated count N 33.7 g/dL 32.0 g/dL - 36.0 g/dL December 30, 2023 1:55:00 AM UTC (TECH: [employer]) 99023-6 Platelets [#/volume] in Blood N 205 10^3/uL 150 10^3/uL - 450 10^3/uL December 30, 2023 1:55:00 AM UTC (TECH: [employer]) 80678-0 Erythrocyte distribution width [Ratio] N 13.1 % 12.3 % - 15.1 % December 30, 2023 1:55:00 AM UTC (TECH: [employer]) 33555-2 Platelet mean volume [Entitic volume] in Blood by Automated count N 10.1 fl 7.4 fl - 10.4 fl December 30, 2023 1:55:00 AM UTC (TECH: [employer]) 70648-2 Granulocytes/100 leukocytes in Blood by Automated count N 71.3 % 40 % - 75 % December 29 1:55:00 AM UTC (TECH: [employer]) 736-9 Lymphocytes/100 leukocytes in Blood by Automated count N 18.0 % 15 % - 57 % December 29 1:55:00 AM UTC (TECH: [employer]) 5905-5 Monocytes/100 leukocytes in Blood by Automated count N 7.1 % 4.0 % - 12.0 % December 29 1:55:00 AM UTC (TECH: [employer]) 713-8 Eosinophils/100 leukocytes in Blood by Automated count N 2.8 % 0.0 % - 4.0 % December 29 1:55:00 AM UTC (TECH: [employer]) 706-2 Basophils/100 leukocytes in Blood by Automated count N 0.2 % 0.0 % - 1.0 % December 29 1:55:00 AM UTC (TECH: [employer]) 47959-0 Immature granulocytes [#/volume] in Blood N 0.6 % 0.0 % - 0.8 % December 29 1:55:00 AM UTC (TECH: [facility]) 01597-5 Granulocytes [#/volume] in Blood by Automated count N 7.78 10^3/uL December 29 1:55:00 AM UTC (TECH: [facility]) 731-0 Lymphocytes [#/volume] in Blood by Automated count N 1.96 10^3/uL December 29 1:55:00 AM UTC (TECH: [facility]) 742-7 Monocytes [#/volume] in Blood by Automated count N 0.77 10^3/uL December 30, 2023 1:55:00 AM UTC (TECH: [employer]) 711-2 Eosinophils [#/volume] in Blood by Automated count N 0.30 10^3/uL December 29 1:55:00 AM UTC (TECH: [employer]) 704-7 Basophils [#/volume] in Blood by Automated count N 0.02 10^3/uL December 30, 2023 1:55:00 AM UTC (TECH: [employer]) 16694-8 Immature granulocytes [#/volume] in Blood N 0.07 10^3/uL December 29 1:55:00 AM UTC (TECH: [employer]) 51313-2 Manual differential performed [Presence] in Blood N NO December 30, 2023 1:55:00 AM UTC (TECH: [employer]) ORDER 200: COMP METABOLIC PA MARLEY (LOINC: 79107-5) ORDER DATE: December 30, 2023 1:45:00 AM UTC Specimen Source: Serum/Plasm a Specimen Type: Acellular blo od (serum or plasma) specimen PERFORMING LAB: [address] [id number] Result Comment: Final Result Date: December 30, 2023 2:08:00 AM UTC (TECH: [employer]) LOINC TEST FLAG RESULT REFERENCE RANGE UPDA KRISSY BY 2951-2 Sodium [Moles/volume ] in Serum or Plasma N 139 mmol/L 136 mmol/L - 145 mmol/L December 30, 2023 2:08:00 AM UTC (TECH: [employer]) 2823-3 Potassium [Moles/volume] in Serum or Plasma N 4.2 mmol/L 3.5 mmol/L - 5.1 mmol/L December 30, 2023 2:08:00 AM UTC (TECH: [employer]) 2075-0 Chloride [Moles/volu me] in Serum or Plasma N 101 mmol/L 98 mmol/L - 107 mmol/L December 30, 2023 2:08:00 AM UTC (TECH: [employer]) 8-9 Carbon dioxide, tota l [Moles/volume] in Serum or Plasma N 30 mmol/L 21 mmol/L - 32 mmol/L December 30, 2023 2:08:00 AM UTC (TECH: [employer]) 56082-0 Anion gap 3 in Serum or Plasma N 8.0 December 30, 2023 2:08:00 AM UT (TECH: [employer]) 2345-7 Glucose [Mass/volume ] in Serum or Plasma H 158 mg/dL 70 mg/dL - 110 mg/dL December 30, 2023 2:08:00 AM UT (TECH: [employer]) 3094-0 Urea nitrogen [Mass/volume] in Serum or Plasma H 24 mg/dL 7 mg/dL - 18 mg/dL December 30, 2023 2:08:00 AM [facility] (Gratci: [employer]) 2160-0 Creatinine [Mass/volume] in Serum or Plasma N 1.0 mg/dL 0.6 mg/dL - 1.0 mg/dL December 30, 2023 2:08:00 AM UT (TECH: [employer]) 3097-3 Urea nitrogen/Creatinine [Mass Ratio] in Serum or Plasma H 24.0 Ratio 9 Ratio - 21 Ratio December 30, 2023 2:08:00 AM UT (TECH: [employer]) 91153-4 Glomerular filtratio n rate/1.73 sq M.predicted by Creatinine-based formula (MDRD) N 61 mL/min >60 December 30, 2023 2:08:00 AM UT (TECH: [employer]) 2885-2 Protein [Mass/volume ] in Serum or Plasma N 7.6 g/dL 6.4 g/dL - 8.2 g/dL December 30, 2023 2:08:00 AM UT (TECH: [employer]) 1751-7 Albumin [Mass/volume ] in Serum or Plasma L 2.8 g/dL 3.4 g/dL - 5.0 g/dL December 30, 2023 2:08:00 AM [facility] (Gratci: [employer]) 19908-3 Calcium [Mass/volume ] in Serum or Plasma N 9.0 mg/dL 8.5 mg/dL - 10.1 mg/dL December 30, 2023 2:08:00 AM [facility] (Gratci: [employer]) 97538-9 Calcium [Mass/volume ] corrected for total protein in Serum or Plasma N 10.0 mg/dL 8.5 mg/dL - 10.1 mg/dL December 30, 2023 2:08:00 AM [facility] (Gratci: [employer]) 1975-2 Bilirubin.total [Mass/volume] in Serum or Plasma N 0.5 mg/dL 0.4 mg/dL - 1.5 mg/dL December 30, 2023 2:08:00 AM [facility] (Gratci: [employer]) 1920-8 Aspartate aminotransferase [Enzymatic activity/volume] in Serum or Plasma N 22 U/L 15 U/L - 37 U/L December 30, 2023 2:08:00 AM [facility] (Gratci: [employer]) 1742-6 Alanine aminotransferase [Enzymatic activity/volume] in Serum or Plasma N 27 U/L 12 U/L - 78 U/L December 30, 2023 2:08:00 AM [facility] (Gratci: [employer]) 6768-6 Alkaline phosphatase [Enzymatic activity/volume] in Serum or Plasma H 183 U/L 50 U/L - 120 U/L December 30, 2023 2:08:00 AM [facility] (TECH: [employer]) ORDER 300: B-TYPE NATRIURETI C PEPTIDE BNP (LOINC: 12561-7) ORDER DATE: December 30, 2023 1:45:00 AM UT Specimen Source: Whole Blood Specimen Type: Whole blood s ample PERFORMING LAB: [address] [id number] Result Comment: Final Result Date: December 30, 2023 2:18:00 AM [facility] (TECH: [employer]) LOINC TEST FLAG RESULT [place] [address]-0 Natriuretic peptide B [Mass/volume] in Serum or Plasma H 180.0 pg/mL 0.0 pg/mL - 100 pg/mL December 30, 2023 2:18:00 AM UTC (TECH: [employer]) ORDER 400: UA AND MICRO/CULT IF INDICATED (LOINC: 42128-4) ORDER DATE: December 30, 2023 2:02:00 AM UTC Specimen Source: URINE Specimen Type: Urine specime n PERFORMING LAB: [address] [id number] Result Comment: Final Result Date: December 30, 2023 2:23:00 AM UTC (TECH: [employer] [facility]) LOINC TEST FLAG RESULT REFERENCE RANGE UPDA KRISSY BY 5778-6 Color of Urine N LT YELLOW YELLOW December 30, 2023 2:23:00 AM UTC (TECH: [employer]) 5767-9 Appearance of Urine N CLEAR CLEAR December 30, 2023 2:23:00 AM UTC (TECH: [employer]) 5792-7 Glucose [Mass/volume] in Urine by Test strip N NORM NORMAL December 30, 2023 2:23:00 AM UTC (TECH: [employer]) 91414-8 Bilirubin.total [Mass/volume] in Urine by Automated test strip N NEGATIVE NEGATIVE December 30, 2023 2:23:00 AM UTC (TECH: [employer]) 5797-6 Ketones [Mass/volume] in Urine by Test strip N NEGATIVE NEGATIVE December 30, 2023 2:23:00 AM UTC (TECH: [employer]) 2965-2 Specific gravity of Urine N 1.010 1.005 - 1.035 December 30, 2023 2:23:00 AM UTC (TECH: [employer]) 22071-0 Erythrocytes [#/volume] in Urine by Automated test strip N 25 (1+) /mcL NEGATIVE December 30, 2023 2:23:00 AM UTC (TECH: [employer]) 23043-2 pH of Urine by Automated test strip N 5.00 5.0 - 7.5 December 30, 2023 2:23:00 AM UTC (TECH: [facility]) 91524-4 Protein [Presence] in Urine by Test strip N 15 (TRACE) mg/dL NEGATIVE December 30, 2023 2:23:00 AM UTC (TECH: [facility]) 07520-2 Urobilinogen [Mass/volume] in Urine by Automated test strip N NORM NORMAL December 30, 2023 2:23:00 AM UTC (TECH: [employer]) 39152-5 Nitrate [Presence] in Urine N NEGATIVE NEGATIVE December 30, 2023 2:23:00 AM UTC (TECH: [employer]) 88833-1 Leukocytes [#/volume] in Urine by Test strip N NEGATIVE NEGATIVE December 30, 2023 2:23:00 AM UTC (TECH: [employer]) 07476-0 Other elements in Urine sediment N NOT REQUIRED December 30, 2023 2:23:00 AM UTC (TECH: [employer]) 61075-7 Microscopic observation [Identifier] in Urine sediment by Light microscopy N YES December 30, 2023 2:23:00 AM UTC (TECH: [employer]) 79396-4 Erythrocytes [#/area] in Urine sediment by Microscopy high power field N RARE 0-3 December 30, 2023 2:23:00 AM UTC (TECH: [employer]) 5821-4 Leukocytes [#/area] in Urine sediment by Microscopy high power field N NONE SEEN NONE SEEN December 30, 2023 2:23:00 AM UTC (TECH: [employer]) 92597-9 Epithelial cells.squamous [#/area] in Urine sediment by Microscopy high power field N 1-5 NONE SEEN December 30, 2023 2:23:00 AM UTC (TECH: [employer]) 5769-5 Bacteria [#/area] in Urine sediment by Microscopy high power field N NONE SEEN NONE SEEN December 30, 2023 2:23:00 AM UTC (TECH: [employer]) ORDER 1800: HEMOGLOBIN A1C ( LOINC: 4548-4) ORDER DATE: December 30, 2023 3:32:00 AM UTC Specimen Source: Whole Blood Specimen Type: Whole blood s ample PERFORMING LAB: [address] [id number] Result Comment: Final Result Date: December 30, 2023 10:26:00 AM UTC (TECH: [facility]) LOINC TEST FLAG RESULT REFERENCE RANGE UPDA KRISSY BY 4548-4 Hemoglobin A1c/Hemoglobin.tota l in Blood H 8.4 % 4.5 % - 6.2 % December 30, 2023 10:26:00 AM UTC (TECH: [facility]) 39632-2 Glucose mean value [Mass/volume] in Blood Estimated from glycated hemoglobin H 194 mg/dl 82 mg/dl - 131 mg/dl December 30, 2023 10:26:00 AM UTC (TECH: [facility]) ORDER 1901: CBC AUTO NO DIFF HEMOGRAM (LOINC: 25049-9) ORDER DATE: December 30, 2023 3:32:00 AM UTC Specimen Source: Whole Blood Specimen Type: Whole blood s ample PERFORMING LAB: [address] [id number] Result Comment: Final Result Date: December 30, 2023 10:05:00 AM UTC (TECH: [employer]) LOINC TEST FLAG RESULT REFERENCE RANGE UPDA KRISSY BY 6690-2 Leukocytes [#/volume] in Blood by Automated count N 10.0 10^3/uL 4.5 10^3/uL - 11.5 10^3/uL December 30, 2023 10:05:00 AM UTC (TECH: [facility]) 789-8 Erythrocytes [#/volume] in Blood by Automated count N 4.76 10^6/uL 4.25 10^6/uL - 5.57 10^6/uL December 30, 2023 10:05:00 AM UTC (TECH: [facility]) 718-7 Hemoglobin [Mass/volume] in Blood N 13.7 g/dL 12.0 g/dL - 15.7 g/dL December 30, 2023 10:05:00 AM UTC (TECH: [facility]) 83424-4 Hematocrit [Volume Fraction] of Blood N 40.8 % 36.0 % - 47.0 % December 29 10:05:00 AM UTC (TECH: [facility]) 787-2 Erythrocyte mean corpuscular volume [Entitic volume] by Automated count N 85.7 fl 80 fl - 95 fl December 30, 2023 10:05:00 AM UTC (TECH: [facility]) 12198-8 Erythrocyte mean corpuscular hemoglobin [Entitic mass] in Blood from Fetus by Automated count N 28.8 pg 27.0 pg - 34.0 pg December 30, 2023 10:05:00 AM UTC (TECH: [facility]) 68261-4 Erythrocyte mean corpuscular hemoglobin concentration [Mass/volume] in Blood from Fetus by Automated count N 33.6 g/dL 32.0 g/dL - 36.0 g/dL December 30, 2023 10:05:00 AM UTC (TECH: [facility]) 71105-1 Platelets [#/volume] in Blood N 222 10^3/uL 150 10^3/uL - 450 10^3/uL December 30, 2023 10:05:00 AM [facility] (TECH: [facility]) 81008-6 Erythrocyte distribution width [Ratio] N 13.0 % 12.3 % - 15.1 % December 30, 2023 10:05:00 AM [facility] (TECH: [facility]) 93837-2 Platelet mean volume [Entitic volume] in Blood by Automated count N 10.2 fl 7.4 fl - 10.4 fl December 30, 2023 10:05:00 AM [facility] (TECH: [facility]) ORDER 2001: BASIC METABOLIC PANEL (LOINC: 28079-8) ORDER DATE: December 30, 2023 3:32:00 AM [facility] Specimen Source: Serum/Plasm a Specimen Type: Acellular blo od (serum or plasma) specimen PERFORMING LAB: [address] [id number] Result Comment: Final Result Date: December 30, 2023 10:27:00 AM [facility] (TECH: [employer]) LOINC TEST FLAG RESULT REFERENCE RANGE UPDA KRISSY BY 2951-2 Sodium [Moles/volume] in Serum or Plasma N 141 mmol/L 136 mmol/L - 145 mmol/L December 30, 2023 10:27:00 AM [facility] (TECH: [employer]) 2823-3 Potassium [Moles/volume] in Serum or Plasma N 4.1 mmol/L 3.5 mmol/L - 5.1 mmol/L December 30, 2023 10:27:00 AM [facility] (TECH: [facility]) 5-0 Chloride [Moles/volume] in Serum or Plasma N 100 mmol/L 98 mmol/L - 107 mmol/L December 30, 2023 10:27:00 AM [facility] (TECH: [facility]) 8-9 Carbon dioxide, total [Moles/volume] in Serum or Plasma H 36 mmol/L 21 mmol/L - 32 mmol/L December 30, 2023 10:27:00 AM [facility] (TECH: [facility]) 92833-8 Anion gap 3 in Serum or Plasma N 5.0 December 30, 2023 10:27:00 AM [facility] (TECH: [facility]) 2345-7 Glucose [Mass/volume] in Serum or Plasma H 183 mg/dL 70 mg/dL - 110 mg/dL December 30, 2023 10:27:00 AM [facility] (TECH: [facility]) 3094-0 Urea nitrogen [Mass/volume] in Serum or Plasma H 23 mg/dL 7 mg/dL - 18 mg/dL December 30, 2023 10:27:00 AM [facility] (TECH: [facility]) 2160-0 Creatinine [Mass/volume] in Serum or Plasma N 1.0 mg/dL 0.6 mg/dL - 1.0 mg/dL December 30, 2023 10:27:00 AM [facility] (TECH: [facility]) 3097-3 Urea nitrogen/Creatinin e [Mass Ratio] in Serum or Plasma H 23.0 Ratio 9 Ratio - 21 Ratio December 30, 2023 10:27:00 AM [facility] (TECH: [facility]) 99542-8 Glomerular filtration rate/1.73 sq M.predicted by Creatinine-based formula (MDRD) N 61 mL/min >60 December 30, 2023 10:27:00 AM [facility] (TECH: [facility]) 54570-0 Calcium [Mass/volume] in Serum or Plasma N 9.1 mg/dL 8.5 mg/dL - 10.1 mg/dL December 30, 2023 10:27:00 AM [facility] (TECH: [facility]) ORDER 2002: BASIC METABOLIC PANEL (LOINC: 74138-6) ORDER DATE: December 30, 2023 3:32:00 AM [facility] Specimen Source: Serum/Plasm a Specimen Type: Acellular blo od (serum or plasma) specimen PERFORMING LAB: [address] [id number] Result Comment: Final Result Date: December 31, 2023 9:48:00 AM [facility] (TECH: [facility]) LOINC TEST FLAG RESULT REFERENCE RANGE UPDA KRISYS BY 2951-2 Sodium [Moles/volume] in Serum or Plasma N 138 mmol/L 136 mmol/L - 145 mmol/L December 31, 2023 9:48:00 AM [facility] (TECH: [facility]) 2823-3 Potassium [Moles/volume] in Serum or Plasma N 3.8 mmol/L 3.5 mmol/L - 5.1 mmol/L December 31, 2023 9:48:00 AM [facility] (TECH: [facility]) 2075-0 Chloride [Moles/volume] in Serum or Plasma L 96 mmol/L 98 mmol/L - 107 mmol/L December 31, 2023 9:48:00 AM [facility] (TECH: [facility]) 2027-9 Carbon dioxide, total [Moles/volume] in Serum or Plasma H 41 mmol/L 21 mmol/L - 32 mmol/L December 31, 2023 9:48:00 AM [facility] (Gratci: [facility]) 54975-8 Anion gap 3 in Serum or Plasma N 1.0 December 31, 2023 9:48:00 AM [facility] (TECH: [facility]) 2345-7 Glucose [Mass/volume] in Serum or Plasma H 164 mg/dL 70 mg/dL - 110 mg/dL December 31, 2023 9:48:00 AM [facility] (Gratci: [facility]) 3094-0 Urea nitrogen [Mass/volume] in Serum or Plasma H 29 mg/dL 7 mg/dL - 18 mg/dL December 31, 2023 9:48:00 AM [facility] (Gratci: [facility]) 2160-0 Creatinine [Mass/volume] in Serum or Plasma N 1.0 mg/dL 0.6 mg/dL - 1.0 mg/dL December 31, 2023 9:48:00 AM [facility] (TECH: [facility]) 3097-3 Urea nitrogen/Creatinin e [Mass Ratio] in Serum or Plasma H 29.0 Ratio 9 Ratio - 21 Ratio December 31, 2023 9:48:00 AM [facility] (Gratci: [facility]) 11322-6 Glomerular filtration rate/1.73 sq M.predicted by Creatinine-based formula (MDRD) N 61 mL/min >60 December 31, 2023 9:48:00 AM [facility] (TECH: [facility]) 25477-7 Calcium [Mass/volume] in Serum or Plasma N 8.9 mg/dL 8.5 mg/dL - 10.1 mg/dL December 31, 2023 9:48:00 AM [facility] (TECH: [facility]) ORDER 1: MAGNESIUM (LOINC : 47410-5) ORDER DATE: December 30, 2023 3:32:00 AM [place] Specimen Source: Serum/Plasm a Specimen Type: Acellular blo od (serum or plasma) specimen PERFORMING LAB: [address] [id number] Result Comment: Final Result Date: December 30, 2023 10:27:00 AM UTC (TECH: [facility]) LOINC TEST FLAG RESULT [place] [address]-7 Magnesium [Mass/volume] in Serum or Plasma L 1.7 mg/dL 1.8 mg/dL - 2.4 mg/dL December 30, 2023 10:27:00 AM UTC (TECH: [facility]) ORDER 2102: MAGNESIUM (LOINC : 95197-4) ORDER DATE: December 30, 2023 3:32:00 AM UTC Specimen Source: Serum/Plasm a Specimen Type: Acellular blo od (serum or plasma) specimen PERFORMING LAB: [address] [id number] Result Comment: Final Result Date: December 31, 2023 9:48:00 AM UTC (TECH: [facility]) LOINC TEST FLAG RESULT [place] [address]-6 Magnesium [Mass/volume] in Serum or Plasma N 1.9 mg/dL 1.8 mg/dL - 2.4 mg/dL December 31, 2023 9:48:00 AM UTC (TECH: [facility]) ORDER 2200: GLUCOSE BLD METE R (LOINC: 91489-9) ORDER DATE: December 30, 2023 4:47:00 AM UTC Specimen Source: Whole Blood Specimen Type: Whole blood s ample PERFORMING LAB: [address] [id number] Result Comment: December 29 4:48:00 AM UTC Test performed by: [id number] ; Instrument: [id number] Final Result Date: December 30, 2023 4:47:00 AM UTC (TECH: [facility]) LOINC TEST FLAG RESULT [place] [address]-1 Glucose [Mass/volume] in Capillary blood by Glucometer H 148 mg/dl 70 mg/dl - 115 mg/dl December 30, 2023 4:47:00 AM UTC (TECH: [facility]) ORDER 3500: POTASSIUM (LOINC : 2823-3) ORDER DATE: December 31, 2023 2:17:00 AM UTC Specimen Source: Serum/Plasm a Specimen Type: Acellular blo od (serum or plasma) specimen PERFORMING LAB: [address] [id number] Result Comment: Final Result Date: December 31, 2023 3:06:00 AM [facility] (TECH: [facility]) LOINC TEST FLAG RESULT REFERENCE RANGE UPDA KRISSY BY 2823-3 Potassium [Moles/volume] in Serum or Plasma N 3.7 mmol/L 3.5 mmol/L - 5.1 mmol/L December 31, 2023 3:06:00 AM [facility] (TECH: [facility]) LABORATORY NARRATIVE RESULTS Information is not available RADIOLOGY RESULTS ORDER 600: CHEST SINGLE VIEW /PORTABLE (LOINC: 51822-3) ORDER DATE: December 30, 2023 2:26:00 AM [facility] PERFORMING LAB: [address] [id number] Final Result Date: December 30, 2023 11:38:[address] [place] [address] Name: NIKI TRIPLETT Exam Date: 12/29/2023 : 1970 Age 53 years Gender: F Physician: HORTENCIA CALZADA Facility: [facility] Facility HSV: Outpatient Exam: CHEST SINGLE VIEW/PORTABLE SINGLE VIEW CHEST HISTORY: Fluid overload, history of COPD A The heart is normal in size. The mediastinum is unremarkable. There is slight prominence in the pulmonary vascularity. There is no pneumothorax. Intraspinal catheter is identified. IMPRESSION: Slight prominence in the pulmonary vascularity. Please correlate with cardiopulmonary status. Recommend continued follow-up. Images were reviewed, interpreted and dictated by Ad Torres DO Transcribed by Vida Rodriguez Dictated By: FLO NICOLE Transcribed By: FLO NICOLE Transcribed On: 12/30/2023 7:38 AM Electronically signed by: FLO NICOLE 12/30/2023 Thank you for referring UZIELNIKI WELLER to [facility]. Legally authenticated by BONNIE AMARAL MD 2023-12-30 07:38:46 PATHOLOGY NARRATIVE RESULTS Information is not available MICROBIOLOGY RESULTS No Micro Labs/Results Exist for Patient BLOOD ADMIN RESULTS Information is not available TREATMENT PLAN DISCHARGE MEDICATIONS Status RXNORM Medication Dose Route Frequency Dates Comments U pdated By Continued dilaudid 0.5mg q 3hrs per internal pain pump ' 0 EVERY THREE HOURS Prescr ibed: December 31, 2023 5:15:3 1 PM [facility] [id number] on December 31, 2023 5:15:31 PM [place] Continued 371074 carvedilol 25 mg tablet 1 TAB BY MOUTH TWICE A DAY Prescr ibed: December 31, 2023 5:15:3 1 PM [facility] [id number] on December 31, 2023 5:15:31 PM [place] Continued 068981 trazodone 50 mg tablet 50 MG BY MOUTH AT BEDTIME Prescr ibed: December 31, 2023 5:15:3 1 PM [facility] [id number] on December 31, 2023 5:15:31 PM UT Continued 457280 benzonatate 100 mg capsule 1 CAP BY MOUTH ONCE DAILY Prescr ibed: December 31, 2023 5:15:3 1 PM [facility] [id number] on December 31, 2023 5:15:31 PM [place] Continued 883263 tizanidine 4 mg capsule 1 CAP BY MOUTH TWICE A DAY Prescr ibed: December 31, 2023 5:15:3 1 PM [facility] [id number] on December 31, 2023 5:15:31 PM UT Continued [id number] Synthroid 88 mcg tablet 1 TAB BY MOUTH ONCE DAILY Prescr ibed: December 31, 2023 5:15:3 1 PM [facility] [id number] on December 31, 2023 5:15:31 PM UT Continued [id number] gabapentin (NEURONTIN) 400 MG BY MOUTH THREE TIMES A DAY Prescr ibed: December 31, 2023 5:15:3 1 PM [facility] [id number] on December 31, 2023 5:15:31 PM [facility] Continued [id number] furosemide 80 mg tablet 1 TAB BY MOUTH TWICE A DAY Prescr ibed: December 31, 2023 5:15:3 1 PM [facility] [id number] on December 31, 2023 5:15:31 PM [facility] Continued [id number] Novolin 70/30 U-100 Insulin 100 unit/mL (70-30) suspension 0 SUBCUTANEOUS TWICE A DAY Prescr ibed: December 31, 2023 5:15:3 1 PM [facility] [id number] on December 31, 2023 5:15:31 PM UT Continued [id number] fenofibrate 54 mg tablet 1 TAB BY MOUTH ONCE DAILY Prescr ibed: December 31, 2023 5:15:3 1 PM UT [id number] on December 31, 2023 5:15:31 PM UT Continued duloxetine 60 mg Capsule, Delayed Release Sprinkle 1 CAP BY MOUTH ONCE DAILY Prescr ibed: December 31, 2023 5:15:3 1 PM UT [id number] on December 31, 2023 5:15:31 PM UT Continued [id number] Humulin R Regular U-100 Insuln 100 unit/mL solution 0 Prescr ibed: December 31, 2023 5:15:3 1 PM UT sliding scale [id number] on December 31, 2023 5:15:31 PM UT Continued [id number] Basaglar KwikPen U-100 Insulin 100 unit/mL (3 mL) Insulin Pen 10 UNT SUBCUTANEOUS ONCE DAILY Prescr ibed: December 31, 2023 5:15:3 1 PM UT [id number] on December 31, 2023 5:15:31 PM UT Continued [id number] simvastatin 80 mg tablet 1 TAB BY MOUTH ONCE DAILY Prescr ibed: December 31, 2023 5:15:3 1 PM UT [id number] on December 31, 2023 5:15:31 PM UT Continued [id number] ropinirole 3 mg tablet 1 TAB BY MOUTH AT BEDTIME Prescr ibed: December 31, 2023 5:15:3 1 PM [facility] [id number] on December 31, 2023 5:15:31 PM UT Continued [id number] losartan 100 mg tablet 1 TAB BY MOUTH ONCE DAILY Prescr ibed: December 31, 2023 5:15:3 1 PM [facility] [id number] on December 31, 2023 5:15:31 PM UT Continued [id number] isosorbide mononitrate 30 mg Tablet, Extended Release 24 hr 1 TAB BY MOUTH ONCE DAILY Prescr ibed: December 31, 2023 5:15:3 1 PM [facility] [id number] on December 31, 2023 5:15:31 PM [facility] PATIENT OPEN ORDERS Code System Description Frequency Occurrences Priority Start Date Ordering Physician Updated [facility]RIB CLERK ONE TIME 0 Routine December 30, 2023 5:26:0 0 AM [facility] CONCHA Salas MD [id number] on December 30, 2023 5:26:00 AM [facility] 6462-6 LOINC Bacteria identified in Wound by Culture ONE TIME 0 Routine December 31, 2023 2:56:0 0 PM UTC CONCHA Salas MD [id number] on December 31, 2023 2:56:00 PM UT SCHEDULED PROCEDURES Code System Description Status Scheduled Date Upd ated By Patient scheduled procedure information is not available. HOSPITAL COURSE HOSPITAL COURSE Note Title Discharge Summary Date Of Service December 31, 2023 5:16:4 2 PM UTC Created By [id number] on December 31, 2023 5:16:42 PM UTC Signed By [id number] on December 31, 2023 5:18:54 PM UTC 53-year-old woman with sever e morbid obesity, BMI 60, obstructive sleep apnea, obesity associated hypoventilation syndrome, chronic pain on pain pump, insulin-dependent diabetes mellitus, chronic venous stasis dermatitis and lymphedema, chronic right foot diabetic ulcer, referred with 40 lb fluid weight gain and interval worsening of lower extremity stasis dermatitis, lymphedema and complicating chronic diabetic foot ulcer. She was initiated on a Lasix drip and had close monitoring with telemetry, serial laboratories including potassium, magnesium as well as the repletion. She had a net of nearly 14 L removed in on her day of disposition her BUN and creatinine are 29 and 1.0 respectively. Magnesium and potassium are normal this morning.She will need to follow up with her PCP later this week. Encouraged to continue to weigh daily and modulate her diuretic regimen accordingly.1. Severe fluid weight gain, failed outpatient treatment, due to 2. Chronic venous insufficiency, obstructive sleep apnea as well as3. Severe morbid obesity4. Severe, acute on chronic stasis dermatitis and lymphedema5. Right lower extremity diabetic foot ulcer, present on admission6. Insulin-dependent diabetes mellitus, poorly controlled7. Tobacco abuseAgree with initiation of aggressive diuretic regimen given presence of diabetes and diabetic foot ulcer as well as extensive lymphedema and poor skin integrity about both lower extremities. Very worried about complicating infection in reducing hydrostatic pressure with aggressive diuresis is very important. Continue basal bolus insulin regimen. I have reviewed recent venous studies. MEDICATIONS HOME MEDICATIONS Status RXNORM [facility] Medication Dose Route Frequency Dates Comments Reported By Updated By Active 529377 05960 27087 3 trazodone 50 mg tablet 50.0 MG BY MOUTH BEDTIME Last Dose: [id number] on December 30, 2023 1:27:17 PM [facility] Active 714314 79673 63441 1 Novolin 70/30 U-100 Insulin 100 unit/mL (70-30) suspension 0.0 SUBCUT ANEOUS BID Last Dose: [id number] on December 31, 2023 5:15:06 PM UT Active 3112737 06425 41309 9 Prateekagljasmin ShoemakerikPen U-100 Insulin 100 unit/mL (3 mL) Insulin Pen 10.0 UNT SUBCUT ANEOUS DAILY Last Dose: [id number] on December 30, 2023 2:06:37 AM UT Active 016097 88681 87670 1 Humulin R Regular U-100 Insuln 100 unit/mL solution 0.0 Last Dose: sliding scale [id number] on December 31, 2023 5:14:55 PM UT Active 963385 01990 07422 9 losartan 100 mg tablet 1.0 TAB BY MOUTH DAILY Last Dose: [id number] on December 30, 2023 1:28:15 PM UT Active FreeT extMe d duloxetine 60 mg Capsule, Delayed Release Sprinkle 1.0 CAP BY MOUTH DAILY Last Dose: [id number] on December 30, 2023 2:06:38 AM [facility] Active 259782 02358 37458 7 fenofibrate 54 mg tablet 1.0 TAB BY MOUTH DAILY Last Dose: [id number] on December 30, 2023 1:28:14 PM [facility] Active 546172 59779 30513 0 simvastatin 80 mg tablet 1.0 TAB BY MOUTH DAILY Last Dose: [id number] on December 30, 2023 2:06:38 AM [facility] Active 901940 52554 87159 1 tizanidine 4 mg capsule 1.0 CAP BY MOUTH BID Last Dose: [id number] on December 30, 2023 1:28:14 PM [facility] Active 227617 71611 87942 1 furosemide 80 mg tablet 1.0 TAB BY MOUTH BID Last Dose: [id number] on December 30, 2023 1:28:14 PM [facility] Active 005660 79231 96601 0 Synthroid 88 mcg tablet 1.0 TAB BY MOUTH DAILY Last Dose: [id number] on December 30, 2023 2:06:38 AM [facility] Active 547692 98002 66507 1 benzonatate 100 mg capsule 1.0 CAP BY MOUTH DAILY Last Dose: [id number] on December 30, 2023 1:28:14 PM UT Active 018328 61665 25737 0 carvedilol 25 mg tablet 1.0 TAB BY MOUTH BID Last Dose: [id number] on December 30, 2023 2:06:39 AM UT Active 947820 37968 97075 1 isosorbide mononitrate 30 mg Tablet, Extended Release 24 hr 1.0 TAB BY MOUTH DAILY Last Dose: [id number] on December 30, 2023 2:06:39 AM UT Active 159529 17330 13716 0 ropinirole 3 mg tablet 1.0 TAB BY MOUTH BEDTIME Last Dose: [id number] on December 30, 2023 2:06:39 AM UT Active FreeT extMe d dilaudid 0.5mg q 3hrs per internal pain pump ' 0.0 Q3H Last Dose: [id number] on December 31, 2023 5:14:45 PM [facility] Active 142581 86961 79860 1 gabapentin (NEURONTIN) 400.0 MG BY MOUTH TID Last Dose: PATIENT [id number] on December 31, 2023 12:07:32 PM [facility] DISCHARGE MEDICATIONS Status RXNORM [facility] Medication Dose Route Frequency Dates Comments Physician Updated By Alexi d Free Text Med dilaudid 0.5mg q 3hrs per internal pain pump ' 0.0 EVERY THREE HOURS Prescr ibed: December 31, 2023 5:15:3 1 PM [facility] CONCHA Salas MD PHY [id number] on December 31, 2023 5:15:31 PM [facility] Continue d 224562 0466 0211 900 carvedilol 25 mg tablet 1.0 TAB BY MOUTH TWICE A DAY Prescr ibed: December 31, 2023 5:15:3 1 PM [facility] CONCHA Salas MD, PHY [id number] on December 31, 2023 5:15:31 PM [facility] Continue d 934603 8932 5157 503 trazodone 50 mg tablet 50.0 MG BY MOUTH AT BEDTIME Prescr ibed: December 31, 2023 5:15:3 1 PM [facility] CONCHA Salas MD, PHY [id number] on December 31, 2023 5:15:31 PM [facility] Continue d 690890 8128 0638 701 benzonatate 100 mg capsule 1.0 CAP BY MOUTH ONCE DAILY Prescr ibed: December 31, 2023 5:15:3 1 PM UT CONCHA Salas MD PHY [id number] on December 31, 2023 5:15:31 PM UTC Continue d 974563 5443 9887 201 tizanidine 4 mg capsule 1.0 CAP BY MOUTH TWICE A DAY Prescr ibed: December 31, 2023 5:15:3 1 PM UT CONCHA Salas MD PHY [id number] on December 31, 2023 5:15:31 PM UTC Continue d 202780 3516 4659 490 Synthroid 88 mcg tablet 1.0 TAB BY MOUTH ONCE DAILY Prescr ibed: December 31, 2023 5:15:3 1 PM UT CONCHA Salas MD PHY [id number] on December 31, 2023 5:15:31 PM UTC Continue d 006414 7202 7060 211 gabapentin (NEURONTIN) 400.0 MG BY MOUTH THREE TIMES A DAY Prescr ibed: December 31, 2023 5:15:3 1 PM UT CONCHA Salas MD PHY [id number] on December 31, 2023 5:15:31 PM UTC Continue d 775645 6576 1047 001 furosemide 80 mg tablet 1.0 TAB BY MOUTH TWICE A DAY Prescr ibed: December 31, 2023 5:15:3 1 PM UT CONCHA Salas MD PHY [id number] on December 31, 2023 5:15:31 PM UTC Continue d 515441 0979 9183 711 Novolin 70/30 U-100 Insulin 100 unit/mL (70-30) suspension 0.0 SUBCUT ANEOUS TWICE A DAY Prescr ibed: December 31, 2023 5:15:3 1 PM UT CONCHA Salas MD PHY [id number] on December 31, 2023 5:15:31 PM UTC Continue d 159753 0893 8710 077 fenofibrate 54 mg tablet 1.0 TAB BY MOUTH ONCE DAILY Prescr ibed: December 31, 2023 5:15:3 1 PM UT CONCHA Salas MD PHY [id number] on December 31, 2023 5:15:31 PM UTC Continue d Free Text Med duloxetine 60 mg Capsule, Delayed Release Sprinkle 1.0 CAP BY MOUTH ONCE DAILY Prescr ibed: December 31, 2023 5:15:3 1 PM UT CONCHA Salas MD PHY [id number] on December 31, 2023 5:15:31 PM UTC Continue d 702570 9144 2020 301 Humulin R Regular U-100 Insuln 100 unit/mL solution 0.0 Prescr ibed: December 31, 2023 5:15:3 1 PM UT sliding scale CONCHA Salas MD PHY [id number] on December 31, 2023 5:15:31 PM UTC Continue d 2091095 9228 2771 559 Basaglar KwikPen U-100 Insulin 100 unit/mL (3 mL) Insulin Pen 10.0 UNT SUBCUT ANEOUS ONCE DAILY Prescr ibed: December 31, 2023 5:15:3 1 PM [facility] CONCHA Salas MD PHY [id number] on December 31, 2023 5:15:31 PM UTC Continue d 462834 5588 2050 490 simvastatin 80 mg tablet 1.0 TAB BY MOUTH ONCE DAILY Prescr ibed: December 31, 2023 5:15:3 1 PM [facility] CONCHA Salas MD PHY [id number] on December 31, 2023 5:15:31 PM UT Continue d 998162 1801 7059 910 ropinirole 3 mg tablet 1.0 TAB BY MOUTH AT BEDTIME Prescr ibed: December 31, 2023 5:15:3 1 PM [facility] CONCHA Salas MD PHY [id number] on December 31, 2023 5:15:31 PM UTC Continue d 899096 5984 5014 399 losartan 100 mg tablet 1.0 TAB BY MOUTH ONCE DAILY Prescr ibed: December 31, 2023 5:15:3 1 PM [facility] CONCHA Salas MD PHY [id number] on December 31, 2023 5:15:31 PM UT Continue d 072096 8283 2017 501 isosorbide mononitrate 30 mg Tablet, Extended Release 24 hr 1.0 TAB BY MOUTH ONCE DAILY Prescr ibed: December 31, 2023 5:15:3 1 PM [facility] CONCHA Salas MD PHY [id number] on December 31, 2023 5:15:31 PM [facility] INPATIENT MEDICATIONS Status RXNORM [facility] Medication Dose Route Frequency Rat e Quantity Dates Comments Physician Updated By [facility] [id number] 170 furosemide 40mg vial (LASIX) 10 MG/ML SOLN 40.0 MG INTRAV ENOUS ONE TIME ONLY Start: December 30, 2023 2:29:0 0 AM UTC End: December 30, 2023 2:29:0 0 AM UTC ELSI Salas MD INTERFAC ED on December 30, 2023 2:28:00 AM UTC Discont inued 521005 1758 9009 420 metolazone (ZAROXOLYN) 5 MG TABS 5.0 MG BY MOUTH ONE TIME ONLY Start: December 30, 2023 3:07:0 0 AM UTC End: December 30, 2023 3:07:0 0 AM UTC ELSI Salas MD INTERFAC ED on December 30, 2023 3:07:00 AM UTC Discont inued 0555627 7576 9128 331 HYDROmorpho ne (DILAUDID) 1 MG/ML SOLN 1.0 MG INTRAV ENOUS ONE TIME ONLY Start: December 30, 2023 3:17:0 0 AM UTC End: December 30, 2023 3:17:0 0 AM UTC ELSI Salas MD INTERFAC ED on December 30, 2023 3:16:00 AM UTC Discont inued 149197 4360 6589 688 nicotine TD (NICODERM) 21 MG/24HR PT24 21.0 MG TRANSD ERMAL ONCE DAILY Start: December 30, 2023 3:25:0 0 AM UTC End: December 31, 2023 5:15:0 0 PM UTC [employer] FELICIA JACKSON [employer] [id number] on January 01, 2024 4:25:00 AM UTC Discont inued 4481 6434 121 MONOJECT FLUSH SYRINGE 0.9 % SOLN 10.0 ML INTRAV ENOUS TWICE A DAY Start: December 30, 2023 1:00:0 0 PM UTC End: December 31, 2023 5:15:0 0 PM UTC [employer]URNISH FELICIA RENETTA [employer] ENGINEER [id number] on January 01, 2024 4:25:00 AM UTC Discont inued 4252 6603 121 MONOJECT FLUSH SYRINGE 0.9 % SOLN 10.0 ML INTRAV ENOUS NEEDED Start: December 30, 2023 3:25:0 0 AM UTC End: December 31, 2023 5:15:0 0 PM UTC [employer] F[employer]ICIA RENETTA [employer] [id number] on January 01, 2024 4:25:00 AM UTC Discont inued 158589 8367 3061 400 hydrALAZINE (APRESOLINE ) 20 MG/ML SOLN 10.0 MG INTRAV ENOUS EVERY FOUR HOURS NEEDED Start: December 30, 2023 3:25:0 0 AM UTC End: December 31, 2023 5:15:0 0 PM UTC FURNLYDIA ROBLESP [id number] on January 01, 2024 4:25:00 AM UTC Discont inued 3711949 1127 9233 930 LABETALOL 5 MG/ML SOLN 10.0 MG INTRAV ENOUS EVERY TWO HOURS NEEDED Start: December 30, 2023 3:25:0 0 AM UTC End: December 31, 2023 5:15:0 0 PM UTC FURNLYDIA ROBLESP [id number] on January 01, 2024 4:25:00 AM UTC Discont inued 0012 1176 130 MAG-AL PLUS 200-200-20 MG/5 ML LIQD 30.0 ML BY MOUTH EVERY SIX HOURS NEEDED Start: December 30, 2023 3:25:0 0 AM UTC End: December 31, 2023 5:15:0 0 PM UTC FURNLYDIA ROBLESP [id number] on January 01, 2024 4:25:00 AM UTC Discont inued 3713087 6892 1019 601 PERCOCET 5-325 MG TABS 1.0 TAB BY MOUTH EVERY SIX HOURS NEEDED Start: December 30, 2023 3:25:0 0 AM UTC End: December 31, 2023 5:15:0 0 PM UTC FURNLYDIA ROBLESP [id number] on January 01, 2024 4:25:00 AM UTC Discont inued 909593 0771 1043 301 traZODone (DESYREL) 50 MG TABS 50.0 MG BY MOUTH AT BEDTIME NEEDED Start: December 30, 2023 3:25:0 0 AM UTC End: December 31, 2023 5:15:0 0 PM UTC FURNLYDIA ROBLESP [id number] on January 01, 2024 4:25:00 AM UTC Discont inued 5064313 1205 9128 331 HYDROmorpho ne (DILAUDID) 1 MG/ML SOLN 1.0 MG INTRAV ENOUS EVERY FOUR HOURS NEEDED Start: December 30, 2023 3:25:0 0 AM UTC End: December 30, 2023 1:28:5 9 PM UTC FURNISH FELICIA BLANKENSHIP [id number] on December 30, 2023 1:28:00 PM UTC Discont inued 851635 2430 4660 361 ACETAMINOPH EN 325 MG TABS 650.0 MG BY MOUTH EVERY SIX HOURS NEEDED Start: December 30, 2023 3:25:0 0 AM UTC End: December 31, 2023 5:15:0 0 PM UTC FURNISH FELICIA ROBLESP [id number] on January 01, 2024 4:25:00 AM UTC Discont inued [phone] 7012 911 docusate sodium (COLACE) 100 MG CAPS 100.0 MG BY MOUTH TWICE A DAY NEEDED Start: December 30, 2023 3:25:0 0 AM UTC End: December 31, 2023 5:15:0 0 PM UTC FURNISH FELICIA ROBLESP [id number] on January 01, 2024 4:25:00 AM UTC Discont inued 216514 7979 9030 630 polyethylen e glycol (MIRALAX) 3350 PK PACK 17.0 GM BY MOUTH ONCE DAILY NEEDED Start: December 30, 2023 3:25:0 0 AM UTC End: December 31, 2023 5:15:0 0 PM UTC FURNLYDIA ROBLESP [id number] on January 01, 2024 4:25:00 AM UTC Discont inued 912593 7564 3006 881 pantoprazol e (PROTONIX) 40 MG TBEC 40.0 MG BY MOUTH ONCE DAILY Start: December 30, 2023 1:00:0 0 PM UTC End: December 31, 2023 5:15:0 0 PM UTC FURNISH FELICIA ROBLESP [id number] on January 01, 2024 4:25:00 AM UTC Discont inued 580802 592894 2610 8788 259 enoxaparin (LOVENOX) 40 MG/0.4ML SOSY 40.0 MG SUBCUT ANEOUS ONCE DAILY Start: December 30, 2023 1:00:0 0 PM UTC End: December 30, 2023 2:22:1 0 PM UTC [employer]URNISH FELICIA BLANKENSHIP [id number] on December 30, 2023 2:22:00 PM UTC Discont inued 9519874 1196 9475 503 ondansetron (ZOFRAN) 4 MG/2ML SOLN 4.0 MG INTRAV ENOUS EVERY EIGHT HOURS NEEDED Start: December 30, 2023 3:25:0 0 AM UTC End: December 31, 2023 5:15:0 0 PM UTC [employer]URNISH FELICIA BLANKENSHIP [id number] on January 01, 2024 4:25:00 AM UTC Discont inued 701116 4463 6024 064 ondansetron (ZOFRAN) 4 MG TBDP 4.0 MG SUBLIN GUAL EVERY EIGHT HOURS NEEDED Start: December 30, 2023 3:25:0 0 AM UTC End: December 31, 2023 5:15:0 0 PM UTC [employer]URNISH F[employer] [id number] on January 01, 2024 4:25:00 AM UTC Discont inued 897741 3185 2751 017 insulin lispro(NICO LOG) 100 UNIT/ML SOLN 1.0 UNT SUBCUT ANEOUS SLIDING SCALE NEEDED Start: December 30, 2023 3:30:0 0 AM UTC End: December 31, 2023 5:15:0 0 PM UTC FURNISH FELICIA ROBLESP [id number] on January 01, 2024 4:25:00 AM UTC Discont inued 9852152 7955 9490 264 dextrose SYR (D50) PFS 50 % SOLN 50.0 ML INTRAV ENOUS NEEDED Start: December 30, 2023 3:30:0 0 AM UTC End: December 31, 2023 5:15:0 0 PM UTC FURNISH FELICIA ROBLESP [id number] on January 01, 2024 4:25:00 AM UTC Discont inued 2417242 6709 0028 425 furosemide 100mg vial (LASIX) 10 MG/ML SOLN 100.0 MG INTRAV ENOUS CONT 40.0 ML/HR Start: December 30, 2023 3:31:0 0 AM UTC End: December 31, 2023 2:12:3 9 PM UTC FURNLYDIA BLANKENSHIP [id number] on December 31, 2023 2:13:00 PM UTC Discont inued 3521745 8242 8004 948 sodium chloride (NS) 0.9% SOLN 90.0 ML INTRAV ENOUS CONT 40.0 ML/HR Start: December 30, 2023 3:31:0 0 AM UTC End: December 31, 2023 2:12:3 9 PM UTC SRIRAM BLANKENSHIP [id number] on December 31, 2023 2:13:00 PM UTC Discont inued 5922206 7017 0028 225 furosemide 20mg vial (LASIX) 10 MG/ML SOLN 20.0 MG INTRAV ENOUS ONE TIME ONLY Start: December 30, 2023 4:15:0 0 AM UTC End: December 30, 2023 4:15:0 0 AM UTC CONCHA Salas MD INTERFAC ED on December 30, 2023 4:13:00 AM UTC Discont inued 4031940 5787 9610 204 furosemide 40mg vial (LASIX) 10 MG/ML SOLN 40.0 MG INTRAV ENOUS ONE TIME ONLY Start: December 30, 2023 4:15:0 0 AM UTC End: December 30, 2023 4:15:0 0 AM UTC CONCHA Salas MD INTERFAC ED on December 30, 2023 4:14:00 AM UTC Discont inued Free Text Med carvedilol 25 mg tablet 1.0 TAB BY MOUTH TWICE A DAY Start: December 31, 2023 1:00:0 0 AM UTC End: December 31, 2023 1:00:0 0 AM UTC CONCHA Salas MD [id number] on December 30, 2023 1:31:00 PM UTC Discont inued Free Text Med Synthroid 88 mcg tablet 1.0 TAB BY MOUTH ONCE DAILY Start: December 31, 2023 1:00:0 0 PM UTC End: December 31, 2023 1:00:0 0 PM UTC CONCHA Salas MD [id number] on December 30, 2023 1:32:00 PM UTC Discont inued Free Text Med Basaglar Tonya U-100 Insulin 100 unit/mL (3 mL) Insulin Pen 10.0 UNT SUBCUT ANEOUS ONCE DAILY Start: December 31, 2023 1:00:0 0 PM UTC End: December 31, 2023 1:00:0 0 PM UTC CONCHA Salas MD [id number] on December 30, 2023 1:33:00 PM UTC Discont inued 855139 9091 1043 301 traZODone (DESYREL) 50 MG TABS 50.0 MG BY MOUTH AT BEDTIME Start: December 31, 2023 1:00:0 0 AM UTC End: December 31, 2023 5:15:0 0 PM UTC CONCHA Salas MD [id number] on January 01, 2024 4:25:00 AM UTC Discont inued Free Text Med simvastatin 80 mg tablet 1.0 TAB BY MOUTH ONCE DAILY Start: December 31, 2023 1:00:0 0 PM UTC End: December 31, 2023 1:00:0 0 PM UTC CONCHA Salas MD [id number] on December 30, 2023 1:32:00 PM UTC Discont inued Free Text Med ropinirole 3 mg tablet 1.0 TAB BY MOUTH AT BEDTIME Start: December 31, 2023 1:00:0 0 AM UTC End: December 31, 2023 1:00:0 0 AM UTC CONCHA Salas MD [id number] on December 30, 2023 1:32:00 PM UTC Discont inued 419001 7976 2017 501 isosorbide mononitrate SR 30 MG TB24 30.0 MG BY MOUTH ONCE DAILY Start: December 31, 2023 1:00:0 0 PM UTC End: December 31, 2023 1:00:0 0 PM UTC CONCHA Salas MD [id number] on December 30, 2023 1:31:00 PM UTC Discont inued Free Text Med duloxetine 60 mg Capsule, Delayed Release Sprinkle 1.0 CAP BY MOUTH ONCE DAILY Start: December 31, 2023 1:00:0 0 PM UTC End: December 31, 2023 1:00:0 0 PM UTC CONCHA Salas MD [id number] on December 30, 2023 1:31:00 PM UTC Discont inued 133707 6137 4073 301 hydrALAZINE (APRESOLINE ) 25 MG TABS 25.0 MG BY MOUTH FOUR TIMES A DAY Start: December 30, 2023 1:28:0 0 PM UTC End: December 31, 2023 5:15:0 0 PM UTC CONCHA Salas MD [id number] on January 01, 2024 4:25:00 AM UTC Discont inued 091796 3323 4630 261 carvedilol (COREG) 12.5 MG TABS 25.0 MG BY MOUTH TWICE A DAY Start: December 30, 2023 1:30:0 0 PM UTC End: December 31, 2023 5:15:0 0 PM UTC CONCHA Salas MD [id number] on January 01, 2024 4:25:00 AM UTC Discont inued 285890 4340 4068 311 DULOXETINE HCL 30 MG CPEP 60.0 MG BY MOUTH ONCE DAILY Start: December 30, 2023 1:31:0 0 PM UTC End: December 31, 2023 5:15:0 0 PM UTC CONCHA Salas MD [id number] on January 01, 2024 4:25:00 AM UTC Discont inued 555201 6808 2017 501 isosorbide mononitrate SR 30 MG TB24 30.0 MG BY MOUTH ONCE DAILY Start: December 31, 2023 1:00:0 0 PM UTC End: December 31, 2023 5:15:0 0 PM UTC CONCHA Salas MD [id number] on January 01, 2024 4:25:00 AM UTC Discont inued 681642 5511 2003 231 rOPINIRole (REQUIP) 1 MG TABS 3.0 MG BY MOUTH AT BEDTIME Start: December 31, 2023 1:00:0 0 AM UTC End: December 31, 2023 5:15:0 0 PM UTC CONCHA Salas MD [id number] on January 01, 2024 4:25:00 AM UTC Discont inued 288505 1973 9012 501 simvastatin (ZOCOR) 20 MG TABS 80.0 MG BY MOUTH AT BEDTIME Start: December 31, 2023 1:00:0 0 AM UTC End: December 31, 2023 5:15:0 0 PM UTC CONCHA Salas MD [id number] on January 01, 2024 4:25:00 AM UTC Discont inued 462704 5414 7134 401 levothyroxi ne (SYNTHROID) 88 MCG TABS 88.0 MCG BY MOUTH DAILY AT 0700 Start: December 31, 2023 11:00: 00 AM UTC End: December 31, 2023 5:15:0 0 PM UTC CONCHA Salas MD [id number] on January 01, 2024 4:25:00 AM UTC Discont inued 8301259 6047 380 insulin glargine-YF GN 100 UNIT/ML SOLN 10.0 UNT SUBCUT ANEOUS ONCE DAILY Start: December 30, 2023 1:33:0 0 PM UTC End: December 31, 2023 5:15:0 0 PM UTC CONCHA Salas MD [id number] on January 01, 2024 4:25:00 AM UTC Discont inued 246262 9522 8078 082 enoxaparin (LOVENOX) 40 MG/0.4ML SOSY 40.0 MG SUBCUT ANEOUS TWICE A DAY Start: December 31, 2023 1:00:0 0 AM UTC End: December 31, 2023 5:15:0 0 PM UTC SRIRAM ROBLESP [id number] on January 01, 2024 4:25:00 AM UTC Discont inued 6498 0033 901 MAGNESIUM-O XIDE 400 (240 Mg) MG TABS 400.0 MG BY MOUTH TWICE A DAY Start: December 30, 2023 2:35:0 0 PM UTC End: December 31, 2023 5:15:0 0 PM UTC CONCHA Salas MD [id number] on January 01, 2024 4:25:00 AM UTC Discont inued 2264508 3358 5531 911 KLOR-CON M20 20 MEQ TBCR 20.0 MEQ BY MOUTH ONCE DAILY Start: December 30, 2023 2:35:0 0 PM UTC End: December 31, 2023 5:15:0 0 PM UTC CONCHA Salas MD [id number] on January 01, 2024 4:25:00 AM UTC Discont inued [id number] PERCOCET 5-325 MG TABS 1.0 TAB BY MOUTH ONE TIME ONLY Start: December 30, 2023 8:51:0 0 PM UTC End: December 30, 2023 8:56:1 5 PM UTC CONCHA Salas MD [id number] on December 30, 2023 8:56:00 PM UTC Discont inued [id number] 204 furosemide 40mg vial (LASIX) 10 MG/ML SOLN 40.0 MG INTRAV ENOUS ONE TIME ONLY Start: December 31, 2023 2:04:0 0 AM UTC End: December 31, 2023 2:04:0 0 AM UTC CONCHA Salas MD INTERFAC ED on December 31, 2023 2:02:00 AM UTC Discont inued [id number] 225 furosemide 20mg vial (LASIX) 10 MG/ML SOLN 20.0 MG INTRAV ENOUS ONE TIME ONLY Start: December 31, 2023 2:04:0 0 AM UTC End: December 31, 2023 2:04:0 0 AM UTC CONCHA Salas MD INTERFAC ED on December 31, 2023 2:03:00 AM UTC Discont inued [id number] 924 MAG SULF 2GM/50ML PRE-MIX 40 MG/ML SOLN 2.0 GM INTRAV ENOUS NOW 25.0 ML/HR Start: December 31, 2023 2:16:0 0 AM UTC End: December 31, 2023 2:23:2 2 AM UTC FURNLYDIA BLANKENSHIP [id number] on December 31, 2023 2:23:00 AM UTC Discont inued [id number] 911 KLOR-CON M20 20 MEQ TBCR 40.0 MEQ BY MOUTH ONE TIME ONLY Start: December 31, 2023 3:39:0 0 AM UTC End: December 31, 2023 3:59:0 8 AM UTC FURNLYDIA BLANKENSHIP [id number] on December 31, 2023 3:59:00 AM UTC Discont inued [id number] 211 gabapentin (NEURONTIN) 400 MG CAPS 400.0 MG BY MOUTH THREE TIMES A DAY Start: December 31, 2023 1:37:0 0 PM UTC End: December 31, 2023 5:15:0 0 PM UTC CONCHA Salas MD [id number] on January 01, 2024 4:25:00 AM UTC Discont inued [id number] furosemide 100mg vial (LASIX) 10 MG/ML SOLN 100.0 MG INTRAV ENOUS CONT 10.0 ML/HR Start: December 31, 2023 3:00:0 0 PM UTC End: December 31, 2023 5:15:0 0 PM UTC SRIRAM BLANKENSHIP [id number] on January 01, 2024 4:25:00 AM UTC Discont inued [id number] 948 sodium chloride (NS) 0.9% SOLN 90.0 ML INTRAV ENOUS CONT 10.0 ML/HR Start: December 31, 2023 3:00:0 0 PM UTC End: December 31, 2023 5:15:0 0 PM UTC SRIRAM BLANKENSHIP [id number] on January 01, 2024 4:25:00 AM UTC Discont inued [id number] [phone] *PATIENT INFORMATION MISC 1.0 EA SEE COMMEN TS NEEDED Start: December 31, 2023 5:15:0 0 PM UTC End: December 31, 2023 5:15:0 0 PM UTC CONCHA Salas MD [id number] on January 01, 2024 4:25:00 AM UTC SOCIAL HISTORY SOCIAL HISTORY SNOMED-CT Social History Element Description Effective Dates Offered Cessation Comment UpdatedBy [id number] Current Tobacco smoking status Current Every Day Smoker Refused [id number] on December 31, 2023 1:18:46 PM UTC [id number] Historical Tobacco smoking status Former Smoker End: February 09, 2016 4:00:00 AM UTC Not Applicable [id number] on February 08, 2018 6:30:33 AM UTC [id number] Historical Tobacco smoking status Never Smoked Not Applicable [id number] on November 03, 2016 9:23:18 PM UTC [...] for each vital sign as of January 02, 2024 1:29:08 PM [place] Loinc Code Vital [place] [address]-5 Blood glucose monitors December 30, 2023 9:47:00 PM UTC 210.0 mg/dL [id number] on December 30, 2023 9:47:39 PM UTC 8302-2 Body height December 30, 2023 4:59:45 AM UTC 152.4 cm (60.0 in) [id number] on December 30, 2023 4:59:45 AM UTC 60897-6 Body mass index (BMI ) [Ratio] December 30, 2023 4:59:45 AM UTC 59.364 kg/m2 [id number] on December 30, 2023 4:59:45 AM UTC 3140-1 Body Surface Area Derived From Formula December 30, 2023 4:59:45 AM UTC 2.2302 m2 [id number] on December 30, 2023 4:59:45 AM UTC 8310-5 Body temperature December 31, 2023 11:21:00 AM UTC 98.5 [degF] [id number] on December 31, 2023 11:21:53 AM UTC 73323-6 Body weight Measured December 29 4:59:45 AM UTC 137.892 kg (304.0 lb) [id number] on December 30, 2023 4:59:45 AM UTC 8462-4 Diastolic blood pressure December 31, 2023 11:21:00 AM UTC 57.0 mm[Hg] [id number] on December 31, 2023 11:21:53 AM UTC 8867-4 Heart rate December 31, 2023 11:26:00 AM UTC 64 /min [id number] on December 31, 2023 7:18:55 PM UTC 25130-2 Oxygen saturation in Arterial blood by Pulse oximetry December 31, 2023 11:26:00 AM UTC 96.0 % [id number] on December 31, 2023 7:18:55 PM UTC 9279-1 Respiratory rate December 31, 2023 11:21:00 AM UTC 16 /min [id number] on December 31, 2023 11:21:53 AM UTC 69313-2 Spirometry panel December 31, 2023 11:26:00 AM UTC 7.0 {score} [id number] on December 31, 2023 7:18:55 PM UTC 8480-6 Systolic blood pressure December 31, 2023 11:21:00 AM UTC 123.0 mm[Hg] [id number] on December 31, 2023 11:21:53 AM [facility] PEDIATRIC GROWTH CHART - VITAL SIGNS This section displays Head C ircumference Percentile, Weight for Length Percentile and BMI Percentile Loinc Code Pediatric Measure Age (Months) Result Updat ed By No Pediatric Growth Chart Pe rcentile Information Available. GOALS PATIENT GOALS Goal Assigned Date Updated By *NIKI TRIPLETT WILL REC EIVE [facility] December 30, 2023 [id number] on December 30, 2023 5:27:49 AM [facility] HEALTH CONCERNS Problems Concern Status Health Concern problem infor mation not available. Smoking Status Status Years Used Consumed packs p er day Health Concern smoking histo ry information not available. Family History Concern Status Health Concern family histor y information not available. ENCOUNTERS ENCOUNTER INFORMATION Reason for Visit VENOUS INSUFFICIENCY Admission December 30, 2023 3:23:[address] [id number] Discharge December 31, 2023 5:15:00 PM [facility] DIS CHARGED TO HOME OR SELF CARE ENCOUNTER DIAGNOSES Notes information is not gloria ilable. Code System Diagnosis Onset Date Diagnosis information is not available. ABSTRACT DIAGNOSES Code System Diagnosis Updated By I87.2 ICD10 VENOUS INSUFFICI ENCY (CHRONIC) (PERIPHERAL) [id number] on January 02, 2024 1:28:26 PM [facility] I87.2 ICD10 VENOUS INSUFFICI ENCY (CHRONIC) (PERIPHERAL) [id number] on January 02, 2024 1:28:26 PM [facility] E66.2 ICD10 MORBID (SEVERE) OBESITY WITH ALVEOLAR HYPOVENTILATION [id number] on January 02, 2024 1:28:26 PM [facility] Z68.44 ICD10 BODY MASS INDEX [BMI] 60.0-6 9.9, ADULT [id number] on January 02, 2024 1:28:26 PM [facility] E11.65 ICD10 TYPE 2 DIABETES MELLITUS WITH HYPERGLYCEMIA [id number] on January 02, 2024 1:28:26 PM [facility] E11.621 ICD10 TYPE 2 DIABETES MELLITUS WITH FOOT ULCER [id number] on January 02, 2024 1:28:26 PM [facility] 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 [id number] on January 02, 2024 1:28:26 PM [facility] G89.29 ICD10 OTHER CHRONIC PAIN [id number] o n January 02, 2024 1:28:26 PM [facility] Z79.4 ICD10 DIRECTOR OPERATIONS (CURRENT) USE OF I NSULIN [id number] on January 02, 2024 1:28:26 PM [facility] Z79.899 ICD10 OTHER DIRECTOR OPERATIONS (CURRENT) DR MEYERS THERAPY [id number] on January 02, 2024 1:28:26 PM [facility] Z88.1 ICD10 ALLERGY STATUS T O OTHER ANTIBIOTIC AGENTS [id number] on January 02, 2024 1:28:26 PM [facility] Z88.8 ICD10 ALLERGY STATUS T O OTHER DRUGS, MEDICAMENTS AND BIOLOGICAL SUBSTANCES [id number] on January 02, 2024 1:28:26 PM [facility] Z96.653 ICD10 PRESENCE OF [place] FICIAL KNEE JOINT, BILATERAL [id number] on January 02, 2024 1:28:26 PM [facility] E78.5 ICD10 HYPERLIPIDEMIA, UNSPECIFIED [id number] on January 02, 2024 1:28:26 PM [facility] J44.9 ICD10 CHRONIC OBSTRUCT DIANA PULMONARY DISEASE, UNSPECIFIED [id number] on January 02, 2024 1:28:26 PM [facility] E03.9 ICD10 HYPOTHYROIDISM, UNSPECIFIED [id number] on January 02, 2024 1:28:26 PM [facility] F41.9 ICD10 ANXIETY DISORDER, UNSPECIFIE D [id number] on January 02, 2024 1:28:26 PM [facility] E11.40 ICD10 TYPE 2 DIABETES MELLITUS WITH DIABETIC NEUROPATHY, UNSPECIFIED [id number] on January 02, 2024 1:28:26 PM [facility] M54.9 ICD10 DORSALGIA, UNSPECIFIED [id number] on January 02, 2024 1:28:26 PM [facility] Z86.711 ICD10 PERSONAL HISTORY OF PULMONAR Y EMBOLISM [id number] on January 02, 2024 1:28:26 PM [facility] F17.210 ICD10 NICOTINE DEPENDE NCE, CIGARETTES, UNCOMPLICATED [id number] on January 02, 2024 1:28:26 PM [facility] CARE TEAM Care Technical Planner Role NANCY KERN Primary Attending NANCY KERN Admitting NANCY KERN Referring [facility] HOSPITAL DISCHARGE INSTRUCTION DISCHARGE INSTRUCTION Encounter [id number] Admit Date December 30, 2023 3:23: 00 AM [facility] Discharge Date December 31, 2023 5:15:0 0 PM [facility] PATIENT EDUCATION SUMMARY Patient/Visit Information: Patient Name: NIKI TRIPLETT Diag: Attending Caregiver: CONCHA Salas MD Discharge Instruction Sheets Provided: *[facility] *BRBN Social Determinants of Health *BRBN Suicidal Feelings: How to Help Yourself (LPNT) () Chronic Venous Insufficiency Smoking\Tobacco Cessation - [facility] () () Patient Instructions: Additional Notes for *[facility] Please follow up with your primary physician within one week. Followup Appointments/Instructions: HISTORY AND PHYSICAL NOTE HISTORY AND PHYSICAL NOTE Note Title Admission History an d Physical Date Of Service December 30, 2023 2:37: 45 PM [facility] Created By [id number] on December 30, 2023 2:37:45 PM [facility] Signed By [id number] on December 30, 2023 2:43:01 PM [facility] Chief Complaint Lower extremity swelling History of Present Illness 53-year-old woman with severe morbid obesity, BMI 60, obstructive sleep apnea, obesity associated hypoventilation syndrome, chronic pain on pain pump, insulin-dependent diabetes mellitus, chronic venous stasis dermatitis and lymphedema, chronic right foot diabetic ulcer among others presents with 40 lb weight gain attributed to fluid retention as well as increased lower extremity swelling and pain and stiffness. She has been taking diuretics at home and increasing their doses without any resulting increasing urine output. She is unable to describe any exacerbating or alleviating factors otherwise. Denies any other associated symptoms. Past Medical History Pulmonary embolism Diabetic neuropathy Chronic back pain Anxiety Obstructive sleep apnea syndrome Restrictive lung disease, due to obesity Morbid obesity Osteoarthritis Hypothyroidism Chronic obstructive lung disease Hyperlipidemia Diabetes mellitus Hypertensive disorder Past Surgical History Bilateral replacement of knee joints Social History tobacco use Current Every Day Smoker, 0 yrs, Smoking Cessation Refused marital status Single occupation Disabled Family History Parents Father Alive 75y Diabetes mellitus; Hypertensive disorder; Hypercholesterolemia; Arthritis Mother Alive Diabetes mellitus; Hypertensive disorder; Hypercholesterolemia; Arthritis Allergies IBUPROFEN - Rash Rocephin - Rash Inapsine - Asthma AVELOX - Rash Home Medications Basaglar KwikPen U-100 Insulin 100 unit/mL (3 mL) Insulin Pen Dose: 10 UNT SUBCUTANEOUS ONCE DAILY benzonatate 100 mg capsule Dose: 1 CAP BY MOUTH ONCE DAILY carvedilol 25 mg tablet Dose: 1 TAB BY MOUTH TWICE A DAY dilaudid 0.5mg q 3hrs per internal pain pump ' Dose: EVERY THREE HOURS duloxetine 60 mg Capsule, Delayed Release Sprinkle Dose: 1 CAP BY MOUTH ONCE DAILY fenofibrate 54 mg tablet Dose: 1 TAB BY MOUTH ONCE DAILY furosemide 80 mg tablet Dose: 1 TAB BY MOUTH TWICE A DAY Humulin R Regular U-100 Insuln 100 unit/mL solution isosorbide mononitrate 30 mg Tablet, Extended Release 24 hr Dose: 1 TAB BY MOUTH ONCE DAILY losartan 100 mg tablet Dose: 1 TAB BY MOUTH ONCE DAILY Novolin 70/30 U-100 Insulin 100 unit/mL (70-30) suspension Dose: SUBCUTANEOUS TWICE A DAY ropinirole 3 mg tablet Dose: 1 TAB BY MOUTH AT BEDTIME simvastatin 80 mg tablet Dose: 1 TAB BY MOUTH ONCE DAILY Synthroid 88 mcg tablet Dose: 1 TAB BY MOUTH ONCE DAILY tizanidine 4 mg capsule Dose: 1 CAP BY MOUTH TWICE A DAY trazodone 50 mg tablet Dose: 50 MG BY MOUTH AT BEDTIME Vital Signs 0656 T 97.3 HR 79 RR 18 BP 177 / 79 O2Sat 95 0651 HR 70 O2Sat 96 0442 T 97.8 RR 18 BP 164 / 72 Intake and Output previous current encounter day day cumulative Intake 380 240 620 Output 2750 3500 6250 Balance (-2370) (-3260) (-5630) Physical Exam Respiratory Symmetry of chest movement Negative For: Tachypnea Cardiovascular Normal first heart sound, S>1<, Normal second heart sound, S>2< Negative For: Systolic murmur Abdomen Abdomen soft, Bowel sounds normal Negative For: Abdominal tenderness Peripheral Vascular/Extremities Peripheral pulse palpable, Red extremities, Edema of lower extremity, Discoloration of skin Bilateral circumferential lymphedema and stasis dermatitis with brawny discoloration Skin/Integumentary General Skin Appearance Bilateral lower extremity lymphedema. Diabetic foot ulcer right foot Lab Results 0859 Rad Diagnostic X-Ray [id number] 0549 Chemistry SODIUM 141 K 4.1 CHLORIDE 100 CO2 36 (H) A GAP 5.0 GLUCOSE 183 (H) BUN 23 (H) CREA 1.0 BUN/CREA 23.0 (H) EGFR 61 CALCIUM 9.1 MG 1.7 (L) HGB A1C 8.4 (H) EAG 194 (H) 0549 Hematology WBC 10.0 RBC 4.76 HGB 13.7 HCT 40.8 MCV 85.7 MCH 28.8 MCHC 33.6 PLT S 222 RDW 13.0 MPV 10.2 0047 Point Of Care GLUMETER 148 (H) 2199 Urinalysis COLOR Lt Yellow APPEAR Clear GLUCOSE Norm BILIRUB Negative KETONE Negative SP GRAV 1.010 BLOOD 25 (1+) PH 5.00 PROTEIN 15 (Trace) UROBIL Norm NITRITE Negative LEUK EST Negative CULTURE? Not Required UR MICRO Yes RBC Rare WBC None Seen EPITH 1-5 BACTERIA None Seen 2139 Chemistry SODIUM 139 K 4.2 CHLORIDE 101 CO2 30 A GAP 8.0 GLUCOSE 158 (H) BUN 24 (H) CREA 1.0 BUN/CREA 24.0 (H) EGFR 61 PROTEIN 7.6 ALBUMIN 2.8 (L) CALCIUM 9.0 BRITTANY COR 10.0 BILI TOT 0.5 AST/SGOT 22 ALT/SGPT 27 ALK PHOS 183 (H) 2139 Hematology WBC 10.9 RBC 4.74 HGB 13.6 HCT 40.3 MCV 85.0 MCH 28.7 MCHC 33.7 PLT S 205 RDW 13.1 MPV 10.1 GRAN% 71.3 LYMPH% 18.0 MONO% 7.1 EOS% 2.8 BASO% 0.2 IG% 0.6 GRAN# 7.78 LYMPH# 1.96 MONO# 0.77 EOS# 0.30 BASO# 0.02 IG# 0.07 MANDIFF? No 2139 Triage Meter BNP 180.0 (H) Procedures and Surgeries None Assessment/Plan 53-year-old woman with severe morbid obesity, BMI 60, obstructive sleep apnea, obesity associated hypoventilation syndrome, chronic pain on pain pump, insulin-dependent diabetes mellitus, chronic venous stasis dermatitis and lymphedema, chronic right foot diabetic ulcer, here with 1. Severe fluid weight gain, failed outpatient treatment, due to 2. Chronic venous insufficiency, obstructive sleep apnea as well as 3. Severe morbid obesity 4. Severe, acute on chronic stasis dermatitis and lymphedema 5. Right lower extremity diabetic foot ulcer, present on admission 6. Insulin-dependent diabetes mellitus, poorly controlled 7. Tobacco abuse Agree with initiation of aggressive diuretic regimen given presence of diabetes and diabetic foot ulcer as well as extensive lymphedema and poor skin integrity about both lower extremities. Very worried about complicating infection in reducing hydrostatic pressure with aggressive diuresis is very important. Continue basal bolus insulin regimen. I have reviewed recent venous studies. Time Spent With Patient Time Spent with Patient: [50] Minutes Medication Reconciliation Certification: I have utilized all available immediate resources to obtain, update, or review the patient's current medications. Advance Care Planning Certification: [] I confirmed that the patient's Advance Care Plan is present, code status is documented or surrogate decision make is listed in the patient's medical record. [] The patient's Advance Care Plan is not present because: [] I confirmed today that the patient does not wish or was not able to name a surrogate decision maker or provide an Advance Care Plan Electronically signed by CONCHA LOVETT on 1043 Note Title Nurse Intake Note Date Of Service December 30, 2023 5:02: 30 AM [facility] Created By [id number] on December 30, 2023 5:02:30 AM UTC Signed By [email or web address] on December 30, 2023 5:03:07 AM UTC Problems Patient has had bilateral lower extremity leg swelling for the past 2 days Past Medical History Pulmonary embolism Diabetic neuropathy Chronic back pain Anxiety Obstructive sleep apnea syndrome Restrictive lung disease, due to obesity Morbid obesity Osteoarthritis Hypothyroidism Chronic obstructive lung disease Hyperlipidemia Diabetes mellitus Hypertensive disorder Past Surgical History Bilateral replacement of knee joints Family History Parents Father Alive 75y Diabetes mellitus; Hypertensive disorder; Hypercholesterolemia; Arthritis Mother Alive Diabetes mellitus; Hypertensive disorder; Hypercholesterolemia; Arthritis Social History tobacco use Current Every Day Smoker, 0 yrs, Smoking Cessation Refused marital status Single occupation Disabled Procedures and Surgeries (Current Encounter) None Electronically signed by BERONICA Carlos - ORTHOPAEDIC NURSE on 0103 DISCHARGE SUMMARY NOTE DISCHARGE SUMMARY NOTE Note Title Nurse Discharge Note Date Of Service December 31, 2023 8:40:1 0 PM UTC Created By [id number] on December 31, 2023 8:40:10 PM UTC Signed By [id number] on December 31, 2023 8:40:41 PM UTC Cognitive Status Alert, Oriented x4 Functional Status No functional deficits identified Discharge Diagnosis Edema due to fluid overload Peripheral venous insufficiency Electronically signed by MELQUIADES Romero RN RN on 1640 Note Title Discharge Summary Date Of Service December 31, 2023 5:16:4 2 PM UTC Created By [id number] on December 31, 2023 5:16:42 PM UTC Signed By [id number] on December 31, 2023 5:18:54 PM UTC Admit Date Admit Date: Discharge Date Discharge Date: December 31, 2023 Patient Care Team Admitting Provider: COCNHA LOVETT Attending Provider:CONCHA LOVETT Consulting Provider: Hospital Course 53-year-old woman with severe morbid obesity, BMI 60, obstructive sleep apnea, obesity associated hypoventilation syndrome, chronic pain on pain pump, insulin-dependent diabetes mellitus, chronic venous stasis dermatitis and lymphedema, chronic right foot diabetic ulcer, referred with 40 lb fluid weight gain and interval worsening of lower extremity stasis dermatitis, lymphedema and complicating chronic diabetic foot ulcer. She was initiated on a Lasix drip and had close monitoring with telemetry, serial laboratories including potassium, magnesium as well as the repletion. She had a net of nearly 14 L removed in on her day of disposition her BUN and creatinine are 29 and 1.0 respectively. Magnesium and potassium are normal this morning. She will need to follow up with her PCP later this week. Encouraged to continue to weigh daily and modulate her diuretic regimen accordingly. 1. Severe fluid weight gain, failed outpatient treatment, due to 2. Chronic venous insufficiency, obstructive sleep apnea as well as 3. Severe morbid obesity 4. Severe, acute on chronic stasis dermatitis and lymphedema 5. Right lower extremity diabetic foot ulcer, present on admission 6. Insulin-dependent diabetes mellitus, poorly controlled 7. Tobacco abuse Agree with initiation of aggressive diuretic regimen given presence of diabetes and diabetic foot ulcer as well as extensive lymphedema and poor skin integrity about both lower extremities. Very worried about complicating infection in reducing hydrostatic pressure with aggressive diuresis is very important. Continue basal bolus insulin regimen. I have reviewed recent venous studies. Vital Signs 0721 T 98.5 HR 62 RR 16 BP 123 / 57 O2Sat 96 0246 HR 65 BP 127 / 60 O2Sat 94 0239 RR 18 1147 T 97.3 Intake and Output previous current encounter day day cumulative Intake 900 - 1280 Output 9200 3050 05233 Balance (-8300) (-3050) (-80661) Physical Exam Respiratory Symmetry of chest movement Negative For: Tachypnea Cardiovascular Normal first heart sound, S>1<, Normal second heart sound, S>2< Negative For: Systolic murmur Abdomen Abdomen soft, Bowel sounds normal Negative For: Abdominal tenderness Peripheral Vascular/Extremities Peripheral pulse palpable, Red extremities, Edema of lower extremity, Discoloration of skin Bilateral circumferential lymphedema and stasis dermatitis with brawny discoloration Skin/Integumentary General Skin Appearance Bilateral lower extremity lymphedema. Diabetic foot ulcer right foot, 1.5 cm Lab Results 0533 Chemistry SODIUM 138 K 3.8 CHLORIDE 96 (L) CO2 41 (H) A GAP 1.0 GLUCOSE 164 (H) BUN 29 (H) CREA 1.0 BUN/CREA 29.0 (H) EGFR 61 CALCIUM 8.9 MG 1.9 2250 Chemistry K 3.7 Procedures and Surgeries None Condition at Discharge Good Discharge Medications <style size='11'>Basaglar KwikPen U-100 Insulin 100 unit/mL (3 mL) Insulin Pen</style><style size='9' forecolor='#594015'>10 UNT SUBCUTANEOUS ONCE DAILY </style> <style size='11'>benzonatate 100 mg capsule</style><style size='9' forecolor='#704656'>1 CAP BY MOUTH ONCE DAILY </style> <style size='11'>carvedilol 25 mg tablet</style><style size='9' forecolor='#335974'>1 TAB BY MOUTH TWICE A DAY </style> <style size='11'>dilaudid 0.5mg q 3hrs per internal pain pump '</style>Continue taking same as home <style size='11'>duloxetine 60 mg Capsule, Delayed Release Sprinkle</style><style size='9' forecolor='#839428'>1 CAP BY MOUTH ONCE DAILY </style> <style size='11'>fenofibrate 54 mg tablet</style><style size='9' forecolor='#514359'>1 TAB BY MOUTH ONCE DAILY </style> <style size='11'>furosemide 80 mg tablet</style><style size='9' forecolor='#915157'>1 TAB BY MOUTH TWICE A DAY </style> <style size='11'>gabapentin (NEURONTIN)</style><style size='9' forecolor='#808929'>400 MG BY MOUTH THREE TIMES A DAY </style> <style size='11'>Humulin R Regular U-100 Insuln 100 unit/mL solution</style>Continue taking same as home <style size='11'>isosorbide mononitrate 30 mg Tablet, Extended Release 24 hr</style><style size='9' forecolor='#966726'>1 TAB BY MOUTH ONCE DAILY </style> <style size='11'>losartan 100 mg tablet</style><style size='9' forecolor='#989338'>1 TAB BY MOUTH ONCE DAILY </style> <style size='11'>Novolin 70/30 U-100 Insulin 100 unit/mL (70-30) suspension</style>Continue taking same as home <style size='11'>ropinirole 3 mg tablet</style><style size='9' forecolor='#475041'>1 TAB BY MOUTH AT BEDTIME </style> <style size='11'>simvastatin 80 mg tablet</style><style size='9' forecolor='#445809'>1 TAB BY MOUTH ONCE DAILY </style> <style size='11'>Synthroid 88 mcg tablet</style><style size='9' forecolor='#894416'>1 TAB BY MOUTH ONCE DAILY </style> <style size='11'>tizanidine 4 mg capsule</style><style size='9' forecolor='#277264'>1 CAP BY MOUTH TWICE A DAY </style> <style size='11'>trazodone 50 mg tablet</style><style size='9' forecolor='#752087'>50 MG BY MOUTH AT BEDTIME </style> Discharge Instructions Daily weights. Diabetic diet. Follow-Up PCP this week. Podiatry next week. Time spent with Patient 35 minutes Electronically signed by CONCHA LOVETT on 1060 CARE TEAM CARE organizational consultant Role on Team Status Start Date End Date Update d By CONCHA LOVETT Referring normal December 30, 2023 4:06:26 AM UTC December 31, 2023 5:15:00 PM UTC BRBNDAYEND on December 30, 2023 4:06:26 AM [place] CONCHA LOVETT Attending normal December 30, 2023 4:06:25 AM UTC December 31, 2023 5:15:00 PM UTC BRBNDAYEND on December 30, 2023 4:06:26 AM [place] CONCHA LOVETT Admitting normal December 30, 2023 4:06:25 AM UTC December 31, 2023 5:15:00 PM UTC BRBNDAYEND on December 30, 2023 4:06:26 AM UTC STEPHY DOYLE APRN PCP normal December 30, 2023 1:44:17 AM UTC December 30, 2023 3:24:51 AM UTC BRBNDAYEND on December 30, 2023 4:06:26 AM UTC ELSI LOVETT Referring normal December 30, 2023 1:44:17 AM UTC December 30, 2023 3:24:51 AM UTC BRBNDAYEND on December 30, 2023 4:06:26 AM UTC ELSI LOVETT Attending normal December 30, 2023 1:44:17 AM UTC December 30, 2023 3:24:51 AM UTC BRBNDAYEND on December 30, 2023 4:06:26 AM [facility] ELSI Salas MD PHY Admitting normal December 30, 2023 1:44:17 AM [facility] December 30, 2023 3:24:51 AM [facility] BRBNDAYEND on December 30, 2023 4:06:26 AM [facility] PETE Rivers MD PCP normal December 30, 2023 1:08:54 AM [facility] December 30, 2023 1:44:17 AM [facility] BRBNDAYEND on December 30, 2023 4:06:26 AM [facility]
--- OUTSIDE RECORDS SUMMARY | 2024-07-15 11:15 | XMS_ITS | Continuity of Care Document ---
Author Organization [facility] Phone Care Team Providers Care Experimental Display Builder Name Role Phone NANCY KERN Primary Attending NANCY KERN Admitting NANCY KERN Unavailable YUSUF KEYES Primary Care ALLERGIES AND ADVERSE REACTIONS ALLERGIES AND ADVERSE REACTIONS Code System Allergy Substance Adverse Reaction Date Reaction (Severity) Comment Status Reported By Updated By 5688 RXNorm IBUPROFEN Rash (Moderate) active [id number] on December 30, 2023 4:02:53 AM UT 2193 RXNorm Rocephin Rash (Moderate) active [id number] on December 30, 2023 4:02:53 AM UT 3648 RXNorm Inapsine Shortness of breath/diffic ulty breathing active [id number] on December 30, 2023 4:02:53 AM UT 199156 RXNorm AVELOX Rash (Moderate) active [id number] on December 30, 2023 4:02:53 AM UT ASSESSMENTS Peripheral venous insufficiency ; Edema due to fluid overload ; FAMILY HISTORY RELATION: Father Status: LIVING SNOMED-CT Diagnosis Age At Onset [id number] Diabetes mellitus [id number] Hypertensive disorder [id number] Hypercholesterolemia 8423766 Arthritis RELATION: Mother Status: LIVING SNOMED-CT Diagnosis Age At Onset [id number] Diabetes mellitus [id number] Hypertensive disorder 05389655 Hypercholesterolemia 2393129 Arthritis PROBLEMS PATIENT PROBLEMS Code Description/Comments Category Status Upda krissy By [id number] Peripheral venous insufficiency acti ve [id number] on December 30, 2023 3:26:31 AM UT [id number] Edema due to fluid overload active [email or web address] on December 30, 2023 3:27:17 AM UT RESULTS Patient: UZIEL Cheng Date of : 1970 LABORATORY RESULTS ORDER 100: CBC AUTO W DIFF ( LOINC: 12929-8) ORDER DATE: December 30, 2023 1:45:00 AM UTC Specimen Source: Whole Blood Specimen Type: Whole blood s ample PERFORMING LAB: [address] [id number] Result Comment: Final Result Date: December 30, 2023 1:55:00 AM UTC (TECH: [email or web address]) LOINC TEST FLAG RESULT REFERENCE RANGE UPDA KRISSY BY 6690-2 Leukocytes [#/volume] in Blood by Automated count N 10.9 10^3/uL 4.5 10^3/uL - 11.5 10^3/uL December 30, 2023 1:55:00 AM UTC (TECH: [email or web address]) 789-8 Erythrocytes [#/volume] in Blood by Automated count N 4.74 10^6/uL 4.25 10^6/uL - 5.57 10^6/uL December 30, 2023 1:55:00 AM UTC (TECH: [email or web address]) 718-7 Hemoglobin [Mass/volume] in Blood N 13.6 g/dL 12.0 g/dL - 15.7 g/dL December 30, 2023 1:55:00 AM UTC (TECH: [email or web address]) 22630-8 Hematocrit [Volume Fraction] of Blood N 40.3 % 36.0 % - 47.0 % December 29 1:55:00 AM UTC (TECH: [email or web address]) 787-2 Erythrocyte mean corpuscular volume [Entitic volume] by Automated count N 85.0 fl 80 fl - 95 fl December 30, 2023 1:55:00 AM UTC (TECH: [email or web address]) 36805-5 Erythrocyte mean corpuscular hemoglobin [Entitic mass] in Blood from Fetus by Automated count N 28.7 pg 27.0 pg - 34.0 pg December 30, 2023 1:55:00 AM UTC (TECH: [email or web address]) 70495-0 Erythrocyte mean corpuscular hemoglobin concentration [Mass/volume] in Blood from Fetus by Automated count N 33.7 g/dL 32.0 g/dL - 36.0 g/dL December 30, 2023 1:55:00 AM UTC (TECH: [email or web address]) 08063-4 Platelets [#/volume] in Blood N 205 10^3/uL 150 10^3/uL - 450 10^3/uL December 30, 2023 1:55:00 AM UTC (TECH: [email or web address]) 35040-3 Erythrocyte distribution width [Ratio] N 13.1 % 12.3 % - 15.1 % December 30, 2023 1:55:00 AM UTC (TECH: [email or web address]) 63832-0 Platelet mean volume [Entitic volume] in Blood by Automated count N 10.1 fl 7.4 fl - 10.4 fl December 30, 2023 1:55:00 AM UTC (TECH: [email or web address]) 10316-9 Granulocytes/100 leukocytes in Blood by Automated count N 71.3 % 40 % - 75 % December 29 1:55:00 AM UTC (TECH: [email or web address]) 736-9 Lymphocytes/100 leukocytes in Blood by Automated count N 18.0 % 15 % - 57 % December 29 1:55:00 AM UTC (TECH: [email or web address]) 5905-5 Monocytes/100 leukocytes in Blood by Automated count N 7.1 % 4.0 % - 12.0 % December 29 1:55:00 AM UTC (TECH: [email or web address]) 713-8 Eosinophils/100 leukocytes in Blood by Automated count N 2.8 % 0.0 % - 4.0 % December 29 1:55:00 AM UTC (TECH: [email or web address]) 706-2 Basophils/100 leukocytes in Blood by Automated count N 0.2 % 0.0 % - 1.0 % December 29 1:55:00 AM UTC (TECH: [email or web address]) 39137-8 Immature granulocytes [#/volume] in Blood N 0.6 % 0.0 % - 0.8 % December 29 1:55:00 AM UTC (TECH: [email or web address]) 41526-7 Granulocytes [#/volume] in Blood by Automated count N 7.78 10^3/uL December 29 1:55:00 AM UTC (TECH: [facility]) 731-0 Lymphocytes [#/volume] in Blood by Automated count N 1.96 10^3/uL December 29 1:55:00 AM UTC (TECH: [facility]) 742-7 Monocytes [#/volume] in Blood by Automated count N 0.77 10^3/uL December 30, 2023 1:55:00 AM UTC (TECH: [email or web address]) 711-2 Eosinophils [#/volume] in Blood by Automated count N 0.30 10^3/uL December 29 1:55:00 AM UT (TECH: [email or web address]) 704-7 Basophils [#/volume] in Blood by Automated count N 0.02 10^3/uL December 30, 2023 1:55:00 AM UT (TECH: [email or web address]) 24073-9 Immature granulocytes [#/volume] in Blood N 0.07 10^3/uL December 29 1:55:00 AM UT (TECH: [email or web address]) 88851-9 Manual differential performed [Presence] in Blood N NO December 30, 2023 1:55:00 AM UT (TECH: [email or web address]) ORDER 200: COMP METABOLIC PA MARLEY (LOINC: 24707-9) ORDER DATE: December 30, 2023 1:45:00 AM UT Specimen Source: Serum/Plasm a Specimen Type: Acellular blo od (serum or plasma) specimen PERFORMING LAB: [address] [id number] Result Comment: Final Result Date: December 30, 2023 2:08:00 AM UT (TECH: [email or web address]) LOINC TEST FLAG RESULT REFERENCE RANGE UPDA KRISSY BY 2951-2 Sodium [Moles/volume ] in Serum or Plasma N 139 mmol/L 136 mmol/L - 145 mmol/L December 30, 2023 2:08:00 AM UT (TECH: [email or web address]) 2823-3 Potassium [Moles/volume] in Serum or Plasma N 4.2 mmol/L 3.5 mmol/L - 5.1 mmol/L December 30, 2023 2:08:00 AM UT (TECH: [email or web address]) 2075-0 Chloride [Moles/volu me] in Serum or Plasma N 101 mmol/L 98 mmol/L - 107 mmol/L December 30, 2023 2:08:00 AM UT (TECH: [email or web address]) 8-9 Carbon dioxide, tota l [Moles/volume] in Serum or Plasma N 30 mmol/L 21 mmol/L - 32 mmol/L December 30, 2023 2:08:00 AM UT (TECH: [email or web address]) 12483-4 Anion gap 3 in Serum or Plasma N 8.0 December 30, 2023 2:08:00 AM UT (TECH: [email or web address]) 2345-7 Glucose [Mass/volume ] in Serum or Plasma H 158 mg/dL 70 mg/dL - 110 mg/dL December 30, 2023 2:08:00 AM UT (TECH: [email or web address]) 3094-0 Urea nitrogen [Mass/volume] in Serum or Plasma H 24 mg/dL 7 mg/dL - 18 mg/dL December 30, 2023 2:08:00 AM UT (TECH: [email or web address]) 2160-0 Creatinine [Mass/volume] in Serum or Plasma N 1.0 mg/dL 0.6 mg/dL - 1.0 mg/dL December 30, 2023 2:08:00 AM UT (TECH: [email or web address]) 3097-3 Urea nitrogen/Creatinine [Mass Ratio] in Serum or Plasma H 24.0 Ratio 9 Ratio - 21 Ratio December 30, 2023 2:08:00 AM [facility] ([employer] [email or web address]) 78386-6 Glomerular filtratio n rate/1.73 sq M.predicted by Creatinine-based formula (MDRD) N 61 mL/min >60 December 30, 2023 2:08:00 AM UT (TECH: [email or web address]) 2885-2 Protein [Mass/volume ] in Serum or Plasma N 7.6 g/dL 6.4 g/dL - 8.2 g/dL December 30, 2023 2:08:00 AM [facility] ([email or web address]) 1751-7 Albumin [Mass/volume ] in Serum or Plasma L 2.8 g/dL 3.4 g/dL - 5.0 g/dL December 30, 2023 2:08:00 AM UT (TECH: [email or web address]) 15835-0 Calcium [Mass/volume ] in Serum or Plasma N 9.0 mg/dL 8.5 mg/dL - 10.1 mg/dL December 30, 2023 2:08:00 AM UT ([email or web address]) 28486-3 Calcium [Mass/volume ] corrected for total protein in Serum or Plasma N 10.0 mg/dL 8.5 mg/dL - 10.1 mg/dL December 30, 2023 2:08:00 AM UT (TECH: [email or web address]) 1975-2 Bilirubin.total [Mass/volume] in Serum or Plasma N 0.5 mg/dL 0.4 mg/dL - 1.5 mg/dL December 30, 2023 2:08:00 AM UTC (TECH: [email or web address]) 1920-8 Aspartate aminotransferase [Enzymatic activity/volume] in Serum or Plasma N 22 U/L 15 U/L - 37 U/L December 30, 2023 2:08:00 AM UTC (TECH: [email or web address]) 1742-6 Alanine aminotransferase [Enzymatic activity/volume] in Serum or Plasma N 27 U/L 12 U/L - 78 U/L December 30, 2023 2:08:00 AM UTC (TECH: [email or web address]) 6768-6 Alkaline phosphatase [Enzymatic activity/volume] in Serum or Plasma H 183 U/L 50 U/L - 120 U/L December 30, 2023 2:08:00 AM UTC (TECH: [email or web address]) ORDER 300: B-TYPE NATRIURETI C PEPTIDE BNP (LOINC: 33144-4) ORDER DATE: December 30, 2023 1:45:00 AM UTC Specimen Source: Whole Blood Specimen Type: Whole blood s ample PERFORMING LAB: [address] [id number] Result Comment: Final Result Date: December 30, 2023 2:18:00 AM UT (TECH: [email or web address]) LOINC TEST FLAG [place]ULT [place] [address]-3 Natriuretic peptide B [Mass/volume] in Serum or Plasma H 180.0 pg/mL 0.0 pg/mL - 100 pg/mL December 30, 2023 2:18:00 AM UT (TECH: [email or web address]) ORDER 400: UA AND MICRO/CULT IF INDICATED (LOINC: 24548-1) ORDER DATE: December 30, 2023 2:02:00 AM UTC Specimen Source: URINE Specimen Type: Urine specime n PERFORMING LAB: [address] [id number] Result Comment: Final Result Date: December 30, 2023 2:23:00 AM UT (TECH: [email or web address]) LOINC TEST FLAG RESULT REFERENCE RANGE UPDA KRISSY BY 5778-6 Color of Urine N LT YELLOW YELLOW December 30, 2023 2:23:00 AM UTC (TECH: [email or web address]) 5767-9 Appearance of Urine N CLEAR CLEAR December 30, 2023 2:23:00 AM UTC (TECH: [email or web address]) 5792-7 Glucose [Mass/volume] in Urine by Test strip N NORM NORMAL December 30, 2023 2:23:00 AM UTC (TECH: [email or web address]) 49137-6 Bilirubin.total [Mass/volume] in Urine by Automated test strip N NEGATIVE NEGATIVE December 30, 2023 2:23:00 AM UTC (TECH: [email or web address]) 5797-6 Ketones [Mass/volume] in Urine by Test strip N NEGATIVE NEGATIVE December 30, 2023 2:23:00 AM UTC (TECH: [email or web address]) 2965-2 Specific gravity of Urine N 1.010 1.005 - 1.035 December 30, 2023 2:23:00 AM UTC (TECH: [email or web address]) 78207-5 Erythrocytes [#/volume] in Urine by Automated test strip N 25 (1+) /mcL NEGATIVE December 30, 2023 2:23:00 AM UTC (TECH: [email or web address]) 57271-2 pH of Urine by Automated test strip N 5.00 5.0 - 7.5 December 30, 2023 2:23:00 AM UTC (TECH: [email or web address]) 47422-7 Protein [Presence] in Urine by Test strip N 15 (TRACE) mg/dL NEGATIVE December 30, 2023 2:23:00 AM UTC (TECH: [email or web address]) 27808-8 Urobilinogen [Mass/volume] in Urine by Automated test strip N NORM NORMAL December 30, 2023 2:23:00 AM UTC (TECH: [email or web address]) 14940-2 Nitrate [Presence] in Urine N NEGATIVE NEGATIVE December 30, 2023 2:23:00 AM UTC (TECH: [email or web address]) 81538-3 Leukocytes [#/volume] in Urine by Test strip N NEGATIVE NEGATIVE December 30, 2023 2:23:00 AM UTC (TECH: [email or web address]) 67759-8 Other elements in Urine sediment N NOT REQUIRED December 30, 2023 2:23:00 AM UTC (TECH: [email or web address]) 40257-5 Microscopic observation [Identifier] in Urine sediment by Light microscopy N YES December 30, 2023 2:23:00 AM UTC (TECH: [email or web address]) 10378-7 Erythrocytes [#/area] in Urine sediment by Microscopy high power field N RARE 0-3 December 30, 2023 2:23:00 AM UTC (TECH: [email or web address]) 5821-4 Leukocytes [#/area] in Urine sediment by Microscopy high power field N NONE SEEN NONE SEEN December 30, 2023 2:23:00 AM UTC (TECH: [email or web address]) 30077-2 Epithelial cells.squamous [#/area] in Urine sediment by Microscopy high power field N 1-5 NONE SEEN December 30, 2023 2:23:00 AM UTC (TECH: [email or web address]) 5769-5 Bacteria [#/area] in Urine sediment by Microscopy high power field N NONE SEEN NONE SEEN December 30, 2023 2:23:00 AM UTC (TECH: [facility]) ORDER 1901: CBC AUTO NO DIFF HEMOGRAM (LOINC: 64049-0) ORDER DATE: December 30, 2023 3:32:00 AM UTC Specimen Source: Whole Blood Specimen Type: Whole blood s ample PERFORMING LAB: [address] [id number] Result Comment: Final Result Date: December 30, 2023 10:05:00 AM UTC (TECH: [employer]) LOINC TEST FLAG RESULT REFERENCE RANGE UPDA KRISSY BY 6690-2 Leukocytes [#/volume] in Blood by Automated count N 10.0 10^3/uL 4.5 10^3/uL - 11.5 10^3/uL December 30, 2023 10:05:00 AM UTC (TECH: [employer]) 789-8 Erythrocytes [#/volume] in Blood by Automated count N 4.76 10^6/uL 4.25 10^6/uL - 5.57 10^6/uL December 30, 2023 10:05:00 AM UTC (TECH: [employer]) 718-7 Hemoglobin [Mass/volume] in Blood N 13.7 g/dL 12.0 g/dL - 15.7 g/dL December 30, 2023 10:05:00 AM UTC (TECH: [employer]) 58593-5 Hematocrit [Volume Fraction] of Blood N 40.8 % 36.0 % - 47.0 % December 29 10:05:00 AM UTC (TECH: [employer]) 787-2 Erythrocyte mean corpuscular volume [Entitic volume] by Automated count N 85.7 fl 80 fl - 95 fl December 30, 2023 10:05:00 AM UTC (TECH: [employer]) 96345-8 Erythrocyte mean corpuscular hemoglobin [Entitic mass] in Blood from Fetus by Automated count N 28.8 pg 27.0 pg - 34.0 pg December 30, 2023 10:05:00 AM UTC (TECH: [employer]) 96441-2 Erythrocyte mean corpuscular hemoglobin concentration [Mass/volume] in Blood from Fetus by Automated count N 33.6 g/dL 32.0 g/dL - 36.0 g/dL December 30, 2023 10:05:00 AM UTC (TECH: [employer]l) 72209-0 Platelets [#/volume] in Blood N 222 10^3/uL 150 10^3/uL - 450 10^3/uL December 30, 2023 10:05:00 AM UTC (TECH: [employer]) 07911-3 Erythrocyte distribution width [Ratio] N 13.0 % 12.3 % - 15.1 % December 30, 2023 10:05:00 AM UTC (TECH: [employer]l) 73093-5 Platelet mean volume [Entitic volume] in Blood by Automated count N 10.2 fl 7.4 fl - 10.4 fl December 30, 2023 10:05:00 AM UTC (TECH: [facility]) ORDER 2200: GLUCOSE BLD METE R (LOINC: 52010-0) ORDER DATE: December 30, 2023 4:47:00 AM UTC Specimen Source: Whole Blood Specimen Type: Whole blood s ample PERFORMING LAB: [address] [id number] Result Comment: December 29 4:48:00 AM UTC Test performed by: [id number] ; Instrument: [id number] Final Result Date: December 30, 2023 4:47:00 AM UTC (TECH: HL7) LOINC TEST FLAG [place]ULT [place] [address]-3 Glucose [Mass/volume ] in Capillary blood by Glucometer H 148 mg/dl 70 mg/dl - 115 mg/dl December 29 4:47:00 AM UTC (TECH: HL7) LABORATORY NARRATIVE RESULTS Information is not available RADIOLOGY RESULTS Information is not available PATHOLOGY NARRATIVE RESULTS Information is not available MICROBIOLOGY RESULTS No Micro Labs/Results Exist for Patient BLOOD ADMIN RESULTS Information is not available TREATMENT PLAN DISCHARGE MEDICATIONS Status RXNORM Medication Dose Route Frequency Dates Comments U pdated By Patient discharge medication information is not available. PATIENT OPEN ORDERS Code System Description Frequency Occurrences Priority [place] [address] [facility] Chest X-ray AP portable single view ONE TIME 0 Stat December 30, 2023 2:26:0 0 AM [facility] ELSI Salas MD [id number] on December 30, 2023 2:35:00 AM [facility] 4548-4 [facility] Hemoglobin A1c/Hemoglobi n.total in Blood IN AM 1 Routine December 30, 2023 9:00:0 0 AM [facility] FURNLYDIA FELICIAMonica [employer] [id number] on December 30, 2023 9:49:00 AM [facility] 54947-0 [facility] CBC WO Differential panel - Cord blood IN AM 0 Routine December 31, 2023 9:00:0 0 AM [facility] FURNLYDIA FELICIA [place]EN[place] [employer] [id number] on December 30, 2023 3:32:00 AM [facility] 39000-7 [facility] CBC WO Differential panel - Cord blood IN AM 0 Routine January 01, 2024 9:00:0 0 AM [facility] FURNLYDIA FELICIA [place] [employer] [id number] on December 30, 2023 3:32:00 AM [facility] 75379-6 [facility] Basic metabolic panel - Blood IN AM 0 Routine December 30, 2023 9:00:0 0 AM [facility] FURNLYDIA FELICIA [place] [employer] [id number] on December 30, 2023 9:48:00 AM [facility] 39968-6 LOINC Basic metabolic panel - Blood IN AM 0 Routine December 31, 2023 9:00:0 0 AM [facility] FURNLYDIA [employer]IP [id number] on December 30, 2023 3:32:00 AM [facility] 36629-9 LOINC Basic metabolic panel - Blood IN AM 0 Routine January 01, 2024 9:00:0 0 AM [facility] FURNLYDIA [employer] [id number] on December 30, 2023 3:32:00 AM [facility] 20323-0 LOINC Magnesium [Mass/volume] in Serum or Plasma IN AM 0 Routine December 30, 2023 9:00:0 0 AM [place] FURNLYDIA [employer] [id number] on December 30, 2023 9:49:00 AM [facility] 53350-7 LOINC Magnesium [Mass/volume] in Serum or Plasma IN AM 0 Routine December 31, 2023 9:00:0 0 AM [facility] SRIRAM [employer]IP [id number] on December 30, 2023 3:32:00 AM [facility] 93506-6 LOINC Magnesium [Mass/volume] in Serum or Plasma IN AM 0 Routine January 01, 2024 9:00:0 0 AM [facility] SRIRAM [employer] [id number] on December 30, 2023 3:32:00 AM [facility] [employer] MARKETING SPECIALIST ONE TIME 0 Routine December 30, 2023 5:26:0 0 AM [facility] CONCHA Salas MD [id number] on December 30, 2023 5:26:00 AM [facility] SCHEDULED PROCEDURES Code System Description Status Scheduled Date Upd ated By Patient scheduled procedure information is not available. MEDICATIONS HOME MEDICATIONS Status RXNORM [facility] Medication Dose Route Frequency Dates Comments Reported By Updated By Active 279754 42827 87849 3 trazodone 50 mg tablet 1.0 TAB BY MOUTH DAILY Last Dose: [id number] on December 30, 2023 2:06:36 AM [facility] Active 858319 62222 84612 1 Novolin 70/30 U-100 Insulin 100 unit/mL (70-30) suspension 0.0 SUBCUT ANEOUS BID Last Dose: [id number] on December 30, 2023 2:06:37 AM [facility] Active 7990437 98639 23063 9 Basaglar KwikPen U-100 Insulin 100 unit/mL (3 mL) Insulin Pen 10.0 UNT SUBCUT ANEOUS DAILY Last Dose: [id number] on December 30, 2023 2:06:37 AM [facility] Active 885637 45772 02382 1 Humulin R Regular U-100 Insuln 100 unit/mL solution 0.0 Last Dose: sliding scale [id number] on December 30, 2023 2:06:37 AM [facility] Active 515464 80200 01371 9 losartan 100 mg tablet 1.0 TAB BY MOUTH DAILY Last Dose: [id number] on December 30, 2023 2:06:37 AM [facility] Active FreeT extMe d duloxetine 60 mg Capsule, Delayed Release Sprinkle 1.0 CAP BY MOUTH DAILY Last Dose: [email or web address] on December 30, 2023 2:06:38 AM [facility] Active 940504 82954 85634 7 fenofibrate 54 mg tablet 1.0 TAB BY MOUTH DAILY Last Dose: [id number] on December 30, 2023 2:06:38 AM [facility] Active 872895 57601 44327 0 simvastatin 80 mg tablet 1.0 TAB BY MOUTH DAILY Last Dose: [email or web address] on December 30, 2023 2:06:38 AM [facility] Active 616834 12178 71597 1 tizanidine 4 mg capsule 1.0 CAP BY MOUTH BID Last Dose: [id number] on December 30, 2023 2:06:38 AM [facility] Active 022186 68614 59096 1 furosemide 80 mg tablet 1.0 TAB BY MOUTH BID Last Dose: [id number] on December 30, 2023 2:06:38 AM [facility] Active 975072 19568 71262 0 Synthroid 88 mcg tablet 1.0 TAB BY MOUTH DAILY Last Dose: [id number] on December 30, 2023 2:06:38 AM [facility] Active 215182 72083 06848 1 benzonatate 100 mg capsule 1.0 CAP BY MOUTH DAILY Last Dose: [id number] on December 30, 2023 2:06:39 AM [facility] Active 430650 83010 26581 0 carvedilol 25 mg tablet 1.0 TAB BY MOUTH BID Last Dose: [id number] on December 30, 2023 2:06:39 AM [facility] Active 413823 64486 85371 1 isosorbide mononitrate 30 mg Tablet, Extended Release 24 hr 1.0 TAB BY MOUTH DAILY Last Dose: [id number] on December 30, 2023 2:06:39 AM [facility] Active 605618 76189 40632 0 ropinirole 3 mg tablet 1.0 TAB BY MOUTH BEDTIME Last Dose: [id number] on December 30, 2023 2:06:39 AM [facility] Active FreeT extMe d dilaudid 0.5mg q 3hrs per internal pain pump ' 0.0 Q3H Last Dose: [email or web address] on December 30, 2023 3:58:42 AM [facility] DISCHARGE MEDICATIONS Status RXNORM [facility] Medication Dose Route Frequency Dates Comments Physician Updated By No Discharge Medication Info rmation Available INPATIENT MEDICATIONS Status RXNORM [facility] Medication Dose Route Frequency Rat e Quantity Dates Comments Physician Updated By Zuri [facility] [id number] 2991 597 furosemide 40mg vial (LASIX) 10 MG/ML SOLN 40.0 MG INTRAV ENOUS ONE TIME ONLY Start: December 30, 2023 2:29:0 0 AM UTC End: December 30, 2023 2:29:0 0 AM UTC ELSI Salas MD INTERFAC ED on December 30, 2023 2:28:00 AM UTC Discont inued 622257 8054 9002 420 metolazone (ZAROXOLYN) 5 MG TABS 5.0 MG BY MOUTH ONE TIME ONLY Start: December 30, 2023 3:07:0 0 AM UTC End: December 30, 2023 3:07:0 0 AM UTC ELSI Salas MD INTERFAC ED on December 30, 2023 3:07:00 AM UTC Discont inued 3106527 1755 9128 331 HYDROmorpho ne (DILAUDID) 1 MG/ML SOLN 1.0 MG INTRAV ENOUS ONE TIME ONLY Start: December 30, 2023 3:17:0 0 AM UTC End: December 30, 2023 3:17:0 0 AM UTC ELSI Salas MD INTERFAC ED on December 30, 2023 3:16:00 AM UT Active 877172 7240 6589 688 nicotine TD (NICODERM) 21 MG/24HR PT24 21.0 MG TRANSD ERMAL ONCE DAILY Start: December 30, 2023 3:25:0 0 AM UTC End: January 27, 2024 1:00:0 0 PM UTC FURNLYDIA [facility] [id number] on December 30, 2023 3:30:00 AM UTC Active 0888 1570 121 MONOJECT FLUSH SYRINGE 0.9 % SOLN 10.0 ML INTRAV ENOUS TWICE A DAY Start: December 30, 2023 1:00:0 0 PM UTC End: January 29, 2024 1:00:0 0 AM UTC FURNLYDIA [employer] [id number] on December 30, 2023 3:30:00 AM UTC Active 0888 1570 121 MONOJECT FLUSH SYRINGE 0.9 % SOLN 10.0 ML INTRAV ENOUS NEEDED Start: December 30, 2023 3:25:0 0 AM UTC End: January 29, 2024 3:24:0 0 AM UTC FURNLYDIA [facility] [id number] on December 30, 2023 3:30:00 AM UT Active 783239 7477 3061 400 hydrALAZINE (APRESOLINE ) 20 MG/ML SOLN 10.0 MG INTRAV ENOUS EVERY FOUR HOURS NEEDED Start: December 30, 2023 3:25:0 0 AM UT End: January 09, 2024 3:24:0 0 AM UT FURNLYDIA JACKSON [facility] [id number] on December 30, 2023 3:30:00 AM UT Active 8304212 3719 9233 934 LABETALOL 5 MG/ML SOLN 10.0 MG INTRAV ENOUS EVERY TWO HOURS NEEDED Start: December 30, 2023 3:25:0 0 AM UT End: January 09, 2024 3:24:0 0 [facility] [id number] on December 30, 2023 3:30:00 AM [facility] Active 0012 1176 130 MAG-AL PLUS 200-200-20 MG/5 ML LIQD 30.0 ML BY MOUTH EVERY SIX HOURS NEEDED Start: December 30, 2023 3:25:0 0 AM UT End: January 29, 2024 3:24:0 0 AM [facility] FELIC[id number] on December 30, 2023 3:30:00 AM UT Active 4704915 0912 1019 601 PERCOCET 5-325 MG TABS 1.0 TAB BY MOUTH EVERY SIX HOURS NEEDED Start: December 30, 2023 3:25:0 0 AM UT End: January 06, 2024 3:24:0 0 AM [facility] FELICIA [id number] on December 30, 2023 3:30:00 AM [facility] Active 280544 1958 1043 301 traZODone (DESYREL) 50 MG TABS 50.0 MG BY MOUTH AT BEDTIME NEEDED Start: December 30, 2023 3:25:0 0 AM UT End: January 29, 2024 3:24:0 0 AM UT [facility] [id number] on December 30, 2023 3:30:00 AM UT Active [id number] 331 HYDROmorpho ne (DILAUDID) 1 MG/ML SOLN 1.0 MG INTRAV ENOUS EVERY FOUR HOURS NEEDED Start: December 30, 2023 3:25:0 0 AM UT End: January 06, 2024 3:24:0 0 AM UTC SRIRAM ROBLESP [id number] on December 30, 2023 3:30:00 AM UT Active [id number] [id number] 361 ACETAMINOPH EN 325 MG TABS 650.0 MG BY MOUTH EVERY SIX HOURS NEEDED Start: December 30, 2023 3:25:0 0 AM UT End: January 29, 2024 3:24:0 0 AM [facility] FELICIA ROBLESP [id number] on December 30, 2023 3:33:00 AM [facility] Active [id number] 7421 7012 911 docusate sodium (COLACE) 100 MG CAPS 100.0 MG BY MOUTH TWICE A DAY NEEDED Start: December 30, 2023 3:25:0 0 AM UT End: January 29, 2024 3:24:0 0 AM UT SRIRAM ROBLESP [id number] on December 30, 2023 3:30:00 AM [facility] Active 939606 2796 9030 630 polyethylen e glycol (MIRALAX) 3350 PK PACK 17.0 GM BY MOUTH ONCE DAILY NEEDED Start: December 30, 2023 3:25:0 0 AM UT End: January 29, 2024 3:24:0 0 AM UT SRIRAM ROBLESP [id number] on December 30, 2023 3:30:00 AM UT Active 645558 0316 3006 880 pantoprazol e (PROTONIX) 40 MG TBEC 40.0 MG BY MOUTH ONCE DAILY Start: December 30, 2023 1:00:0 0 PM UT End: January 28, 2024 1:00:0 0 PM UTC SRIRAM LOPEZH RN PEDIATRIC [id number] on December 30, 2023 3:30:00 AM UT Active [id number] 082 enoxaparin (LOVENOX) 40 MG/0.4ML SOSY 40.0 MG SUBCUT ANEOUS ONCE DAILY Start: December 30, 2023 1:00:0 0 PM UTC End: January 28, 2024 1:00:0 0 PM UT SRIRAM FELICIA ROBLESP [id number] on December 30, 2023 3:30:00 AM UT Active [id number] 5375 9475 503 ondansetron (ZOFRAN) 4 MG/2ML SOLN 4.0 MG INTRAV ENOUS EVERY EIGHT HOURS NEEDED Start: December 30, 2023 3:25:0 0 AM UT End: January 29, 2024 3:24:0 0 AM UT FURNLYDIA FELICIA ROBLESP [id number] on December 30, 2023 3:30:00 AM UT Active 552395 8088 6024 064 ondansetron (ZOFRAN) 4 MG TBDP 4.0 MG SUBLIN GUAL EVERY EIGHT HOURS NEEDED Start: December 30, 2023 3:25:0 0 AM UT End: January 29, 2024 3:24:0 0 AM UT SRIRAM FELICIA ROBLESP [id number] on December 30, 2023 3:30:00 AM UT Active 817302 2622 2751 017 insulin lispro(NICO LOG) 100 UNIT/ML SOLN 1.0 UNT SUBCUT ANEOUS SLIDING SCALE NEEDED Start: December 30, 2023 3:30:0 0 AM UT End: January 29, 2024 3:29:0 0 AM UT FURNLYDIA FELICIA LOPEZH RN PEDIATRIC [id number] on December 30, 2023 3:31:00 AM UT Active 7694231 4424 9490 264 dextrose SYR (D50) PFS 50 % SOLN 50.0 ML INTRAV ENOUS NEEDED Start: December 30, 2023 3:30:0 0 AM UT End: January 29, 2024 3:29:0 0 AM UT SRIRAM FELICIA LOPEZH RN PEDIATRIC [id number] on December 30, 2023 3:31:00 AM UT Active 5909339 6864 0028 425 furosemide 100mg vial (LASIX) 10 MG/ML SOLN 100.0 MG INTRAV ENOUS CONT 40.0 ML/HR Start: December 30, 2023 3:31:0 0 AM UT End: January 29, 2024 3:30:0 0 AM UT FURNLYDIA FELICIA JACKSON RN PEDIATRIC [id number] on December 30, 2023 3:32:00 AM UT Active 0077995 9284 8004 948 sodium chloride (NS) 0.9% SOLN 90.0 ML INTRAV ENOUS CONT 40.0 ML/HR Start: December 30, 2023 3:31:0 0 AM UTC End: January 29, 2024 3:30:0 0 AM UTC SRIRAM BLANKENSHIP [id number] on December 30, 2023 3:32:00 AM UTC Discont inued [id number] 7026 0028 225 furosemide 20mg vial (LASIX) 10 MG/ML SOLN 20.0 MG INTRAV ENOUS ONE TIME ONLY Start: December 30, 2023 4:15:0 0 AM UTC End: December 30, 2023 4:15:0 0 AM UTC CONCHA Salas MD INTERFAC ED on December 30, 2023 4:13:00 AM UTC Discont inued [id number] 8878 9610 204 furosemide 40mg vial (LASIX) 10 MG/ML SOLN 40.0 MG INTRAV ENOUS ONE TIME ONLY Start: December 30, 2023 4:15:0 0 AM UTC End: December 30, 2023 4:15:0 0 AM UTC CONCHA Salas MD INTERFAC ED on December 30, 2023 4:14:00 AM UT SOCIAL HISTORY SOCIAL HISTORY SNOMED-CT Social History Element Description Effective Dates Offered Cessation Comment UpdatedBy [id number] Current Tobacco smoking status Current Every Day Smoker Refused [id number] on December 30, 2023 5:00:34 AM UT [id number] Historical Tobacco smoking status Former Smoker End: February 09, 2016 4:00:00 AM UTC Not Applicable [id number] on February 08, 2018 6:30:33 AM UTC [id number] Historical Tobacco smoking status Never Smoked Not Applicable [id number] on November 03, 2016 9:23:18 PM UT [...] value for each vital sign as of December 31, 2023 2:02:22 AM UT Loinc Code Vital Sign Activity Date Result Updated By 8302-2 Body height December 30, 2023 4:59:45 AM UTC 152.4 cm (60.0 in) [id number] on December 30, 2023 4:59:45 AM UTC 84912-5 Body mass index (BMI ) [Ratio] December 30, 2023 4:59:45 AM UTC 59.364 kg/m2 [id number] on December 30, 2023 4:59:45 AM UTC 3140-1 Body Surface Area Derived From Formula December 30, 2023 4:59:45 AM UTC 2.2302 m2 [id number] on December 30, 2023 4:59:45 AM UTC 8310-5 Body temperature December 30, 2023 8:42:00 AM UTC 97.8 [degF] [id number] on December 30, 2023 8:42:05 AM UTC 70507-0 Body weight Measured December 29 4:59:45 AM UTC 137.892 kg (304.0 lb) [id number] on December 30, 2023 4:59:45 AM UTC 8462-4 Diastolic blood pressure December 30, 2023 8:42:00 AM UTC 72.0 mm[Hg] [id number] on December 30, 2023 8:42:05 AM UTC 8867-4 Heart rate December 30, 2023 8:42:00 AM UTC 64 /min [id number] on December 30, 2023 8:42:05 AM UTC 52696-8 Oxygen saturation in Arterial blood by Pulse oximetry December 30, 2023 8:42:00 AM UTC 100.0 % [id number] on December 30, 2023 8:42:05 AM UTC 9279-1 Respiratory rate December 30, 2023 8:42:00 AM UTC 18 /min [id number] on December 30, 2023 8:42:05 AM UTC 07422-1 Spirometry panel December 30, 2023 4:29:00 AM UTC 10.0 {score} [id number] on December 30, 2023 5:15:49 AM UTC 8480-6 Systolic blood pressure December 30, 2023 8:42:00 AM UTC 164.0 mm[Hg] [id number] on December 30, 2023 8:42:05 AM UTC PEDIATRIC GROWTH CHART - VITAL SIGNS This section displays Head C ircumference Percentile, Weight for Length Percentile and BMI Percentile Loinc Code Pediatric Measure Age (Months) Result Updat ed By No Pediatric Growth Chart Pe rcentile Information Available. GOALS PATIENT GOALS Goal Assigned Date Updated By *NIKI TRIPLETT WILL REC EIVE EVIDENCE BASED CARE FOR MED-SURG December 30, 2023 [id number] on December 30, 2023 5:27:49 AM UTC *NIKI TRIPLETT WILL REM AIN FREE FROM FALLS December 30, 2023 [id number] on December 30, 2023 5: 27:49 AM UTC *NIKI TRIPLETT WILL REM AIN FREE OF VTE December 30, 2023 [id number] on December 30, 2023 5: 27:49 AM UTC *NIKI TRIPLETT WILL REC EIVE EVIDENCE BASED CARE FOR VTE December 30, 2023 [id number] on December 30, 2023 5:27:49 AM UTC *NIKI TRIPLETT WILL REC IEVE ORAL CARE EVERY SHIFT December 30, 2023 [id number] on December 30, 2023 5: 27:49 AM UTC *NIKI TRIPLETT WILL REC IEVE EVIDENCED BASED CARE OF URINARY CATHETER December 30, 2023 [id number] on December 30, 2023 5: 29:29 AM UTC *NIKI TRIPLETT OR FAMIL Y VERBALIZES KNOWLEDGE OF TOBACCO CESSATION December 30, 2023 [id number] on December 30, 2023 5: 28:00 AM UTC *NIKI TRIPLETT WILL REC EIVE CARE FOR POSITIVE AIRWAY PRESSURE December 30, 2023 [id number] on December 30, 2023 4:56:09 AM UTC *NIKI TRIPLETT WILL REC EIVE CARE FOR OXYGEN MONITORING December 30, 2023 [id number] on December 30, 2023 4: 56:09 AM UTC *NIKI TRIPLETT WILL REC EIVE CARE FOR BRONCHIAL HYGIENE December 30, 2023 [id number] on December 30, 2023 5: 15:24 AM UTC HEALTH CONCERNS Problems Concern Status Health Concern problem infor mation not available. Smoking Status Status Years Used Consumed packs p er day Health Concern smoking histo ry information not available. Family History Concern Status Health Concern family histor y information not available. ENCOUNTERS ENCOUNTER INFORMATION Reason for Visit VENOUS INSUFFICIENCY Admission December 30, 2023 3:23:00 AM UTC [address] [address] Discharge Patient Not Discharg ed ENCOUNTER DIAGNOSES Notes information is not gloria ilable. Code System Diagnosis Onset Date Diagnosis information is not available. ABSTRACT DIAGNOSES Code System Diagnosis Updated By Abstract Diagnosis informati on is not available. 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 Role on Team Status Start Date End Date Update d By CONCHA LOVETT Referring normal December 30, 2023 4:06:26 AM UTC [email or web address] on December 30, 2023 4:06:26 AM [facility] CONCHA LOVETT Attending normal December 30, 2023 4:06:25 AM UTC BRBNDAYEND on December 30, 2023 4:06:26 AM [facility] CONCHA LOVETT Admitting normal December 30, 2023 4:06:25 AM UTC [email or web address] on December 30, 2023 4:06:26 AM [place] STEPHY DOYLE APRN PCP normal December 30, 2023 1:44:17 AM UTC December 30, 2023 3:24:51 AM UTC BRBNDAYEND on December 30, 2023 4:06:26 AM UT ELSI LOVETT Referring normal December 30, 2023 1:44:17 AM UTC December 30, 2023 3:24:51 AM UTC BRBNDAYEND on December 30, 2023 4:06:26 AM UT ELSI LOVETT Attending normal December 30, 2023 1:44:17 AM UTC December 30, 2023 3:24:51 AM UTC BRBNDAYEND on December 30, 2023 4:06:26 AM [facility] ELSI LOVETT Admitting normal December 30, 2023 1:44:17 AM UT December 30, 2023 3:24:51 AM UTC [email or web address] on December 30, 2023 4:06:26 AM [facility] PETE Rivers MD [facility] normal December 30, 2023 1:08:54 AM UTC December 30, 2023 1:44:17 AM UTC [email or web address] on December 30, 2023 4:06:26 AM [facility]
--- OUTSIDE RECORDS SUMMARY | 2024-07-15 11:15 | XMS_ITS | Continuity of Care Document ---
Author Organization [facility] Phone Care Team Providers Care Sports Medicine Trainer Name Role Phone NANCY KERN Primary Attending NANCY KERN Admitting NANCY KERN Unavailable YUSUF KEYES Primary Care ALLERGIES AND ADVERSE REACTIONS ALLERGIES AND ADVERSE REACTIONS Code System Allergy Substance Adverse Reaction Date Reaction (Severity) Comment Status Reported By Updated By 5618 RXNorm IBUPROFEN Rash (Moderate) active [id number] on December 30, 2023 4:02:53 AM UT 2193 RXNorm Rocephin Rash (Moderate) active [id number] on December 30, 2023 4:02:53 AM UT 3648 RXNorm Inapsine Shortness of breath/diffic ulty breathing active [id number] on December 30, 2023 4:02:53 AM UT 685906 RXNorm AVELOX Rash (Moderate) active [id number] on December 30, 2023 4:02:53 AM UT ASSESSMENTS Peripheral venous insufficiency ; Edema due to fluid overload ; FAMILY HISTORY RELATION: Father Status: LIVING SNOMED-CT Diagnosis Age At Onset [id number] Diabetes mellitus [id number] Hypertensive disorder [id number] Hypercholesterolemia 0103617 Arthritis RELATION: Mother Status: LIVING SNOMED-CT Diagnosis Age At Onset [id number] Diabetes mellitus [id number] Hypertensive disorder [id number] Hypercholesterolemia [id number] Arthritis PROBLEMS PATIENT PROBLEMS Code Description/Comments Category Status Upda krissy By [id number] Peripheral venous insufficiency acti ve [id number] on December 30, 2023 3:26:31 AM UT [id number] Edema due to fluid overload active [id number] on December 30, 2023 3:27:17 AM UT RESULTS Patient: UZIEL Cheng Date of : 1970 LABORATORY RESULTS ORDER 100: CBC AUTO W DIFF ( LOINC: 43663-0) ORDER DATE: December 30, 2023 1:45:00 AM UTC Specimen Source: Whole Blood Specimen Type: Whole blood s ample PERFORMING LAB: [address] [id number] Result Comment: Final Result Date: December 30, 2023 1:55:00 AM UTC (TECH: [employer]) LOINC TEST FLAG RESULT REFERENCE RANGE UPDA KRISSY BY 6690-2 Leukocytes [#/volume] in Blood by Automated count N 10.9 10^3/uL 4.5 10^3/uL - 11.5 10^3/uL December 30, 2023 1:55:00 AM UTC (TECH: [employer]) 789-8 Erythrocytes [#/volume] in Blood by Automated count N 4.74 10^6/uL 4.25 10^6/uL - 5.57 10^6/uL December 30, 2023 1:55:00 AM UTC (TECH: [employer]) 718-7 Hemoglobin [Mass/volume] in Blood N 13.6 g/dL 12.0 g/dL - 15.7 g/dL December 30, 2023 1:55:00 AM UTC (TECH: [employer]) 09797-8 Hematocrit [Volume Fraction] of Blood N 40.3 % 36.0 % - 47.0 % December 29 1:55:00 AM UTC (TECH: [employer]) 787-2 Erythrocyte mean corpuscular volume [Entitic volume] by Automated count N 85.0 fl 80 fl - 95 fl December 30, 2023 1:55:00 AM UTC (TECH: [employer]) 00378-8 Erythrocyte mean corpuscular hemoglobin [Entitic mass] in Blood from Fetus by Automated count N 28.7 pg 27.0 pg - 34.0 pg December 30, 2023 1:55:00 AM UTC (TECH: [employer]) 27332-6 Erythrocyte mean corpuscular hemoglobin concentration [Mass/volume] in Blood from Fetus by Automated count N 33.7 g/dL 32.0 g/dL - 36.0 g/dL December 30, 2023 1:55:00 AM UTC (TECH: [employer]) 17816-3 Platelets [#/volume] in Blood N 205 10^3/uL 150 10^3/uL - 450 10^3/uL December 30, 2023 1:55:00 AM UTC (TECH: [employer]) 75739-2 Erythrocyte distribution width [Ratio] N 13.1 % 12.3 % - 15.1 % December 30, 2023 1:55:00 AM UTC (TECH: [employer]) 23365-7 Platelet mean volume [Entitic volume] in Blood by Automated count N 10.1 fl 7.4 fl - 10.4 fl December 30, 2023 1:55:00 AM UTC (TECH: [employer]) 09355-7 Granulocytes/100 leukocytes in Blood by Automated count N 71.3 % 40 % - 75 % December 29 1:55:00 AM UTC (TECH: [employer]) 736-9 Lymphocytes/100 leukocytes in Blood by Automated count N 18.0 % 15 % - 57 % December 29 1:55:00 AM UTC (TECH: [employer]) 5905-5 Monocytes/100 leukocytes in Blood by Automated count N 7.1 % 4.0 % - 12.0 % December 29 1:55:00 AM UTC (TECH: [employer]) 713-8 Eosinophils/100 leukocytes in Blood by Automated count N 2.8 % 0.0 % - 4.0 % December 29 1:55:00 AM UTC (TECH: [employer]) 706-2 Basophils/100 leukocytes in Blood by Automated count N 0.2 % 0.0 % - 1.0 % December 29 1:55:00 AM UTC (TECH: [employer]) 31760-0 Immature granulocytes [#/volume] in Blood N 0.6 % 0.0 % - 0.8 % December 29 1:55:00 AM UTC (TECH: [employer]) 85038-4 Granulocytes [#/volume] in Blood by Automated count N 7.78 10^3/uL December 29 1:55:00 AM UTC (TECH: [employer]) 731-0 Lymphocytes [#/volume] in Blood by Automated count N 1.96 10^3/uL December 29 1:55:00 AM UTC (TECH: [employer]) 742-7 Monocytes [#/volume] in Blood by Automated count N 0.77 10^3/uL December 30, 2023 1:55:00 AM UTC (TECH: [employer]) 711-2 Eosinophils [#/volume] in Blood by Automated count N 0.30 10^3/uL December 29 1:55:00 AM UT (TECH: [employer]) 704-7 Basophils [#/volume] in Blood by Automated count N 0.02 10^3/uL December 30, 2023 1:55:00 AM UT (TECH: [employer]) 80504-6 Immature granulocytes [#/volume] in Blood N 0.07 10^3/uL December 29 1:55:00 AM UT (TECH: [employer]) 74111-2 Manual differential performed [Presence] in Blood N NO December 30, 2023 1:55:00 AM UT (TECH: [employer]) ORDER 200: COMP METABOLIC PA MARLEY (LOINC: 99082-5) ORDER DATE: December 30, 2023 1:45:00 AM UT Specimen Source: Serum/Plasm a Specimen Type: Acellular blo od (serum or plasma) specimen PERFORMING LAB: [address] [id number] Result Comment: Final Result Date: December 30, 2023 2:08:00 AM UT (TECH: [employer]) LOINC TEST FLAG RESULT REFERENCE RANGE UPDA KRISSY BY 2951-2 Sodium [Moles/volume ] in Serum or Plasma N 139 mmol/L 136 mmol/L - 145 mmol/L December 30, 2023 2:08:00 AM UT (TECH: [employer]) 2823-3 Potassium [Moles/volume] in Serum or Plasma N 4.2 mmol/L 3.5 mmol/L - 5.1 mmol/L December 30, 2023 2:08:00 AM UT (TECH: [employer]) 2075-0 Chloride [Moles/volu me] in Serum or Plasma N 101 mmol/L 98 mmol/L - 107 mmol/L December 30, 2023 2:08:00 AM UT (TECH: [employer]) 8-9 Carbon dioxide, tota l [Moles/volume] in Serum or Plasma N 30 mmol/L 21 mmol/L - 32 mmol/L December 30, 2023 2:08:00 AM UT (TECH: [employer]) 54200-7 Anion gap 3 in Serum or Plasma N 8.0 December 30, 2023 2:08:00 AM UT (TECH: [employer]) 2345-7 Glucose [Mass/volume ] in Serum or Plasma H 158 mg/dL 70 mg/dL - 110 mg/dL December 30, 2023 2:08:00 AM UT (TECH: [employer]) 3094-0 Urea nitrogen [Mass/volume] in Serum or Plasma H 24 mg/dL 7 mg/dL - 18 mg/dL December 30, 2023 2:08:00 AM UT (TECH: [employer]) 2160-0 Creatinine [Mass/volume] in Serum or Plasma N 1.0 mg/dL 0.6 mg/dL - 1.0 mg/dL December 30, 2023 2:08:00 AM UT (TECH: [employer]) 3097-3 Urea nitrogen/Creatinine [Mass Ratio] in Serum or Plasma H 24.0 Ratio 9 Ratio - 21 Ratio December 30, 2023 2:08:00 AM [facility] ([employer]: [employer]) 25751-4 Glomerular filtratio n rate/1.73 sq M.predicted by Creatinine-based formula (MDRD) N 61 mL/min >60 December 30, 2023 2:08:00 AM UT (TECH: [employer]) 2885-2 Protein [Mass/volume ] in Serum or Plasma N 7.6 g/dL 6.4 g/dL - 8.2 g/dL December 30, 2023 2:08:00 AM [facility] ([employer]: [employer]) 1751-7 Albumin [Mass/volume ] in Serum or Plasma L 2.8 g/dL 3.4 g/dL - 5.0 g/dL December 30, 2023 2:08:00 AM UT (TECH: [employer]) 18940-0 Calcium [Mass/volume ] in Serum or Plasma N 9.0 mg/dL 8.5 mg/dL - 10.1 mg/dL December 30, 2023 2:08:00 AM UT ([employer]: [employer]) 44655-5 Calcium [Mass/volume ] corrected for total protein in Serum or Plasma N 10.0 mg/dL 8.5 mg/dL - 10.1 mg/dL December 30, 2023 2:08:00 AM UT (TECH: [employer]) 1975-2 Bilirubin.total [Mass/volume] in Serum or Plasma N 0.5 mg/dL 0.4 mg/dL - 1.5 mg/dL December 30, 2023 2:08:00 AM UTC (TECH: [employer]) 1920-8 Aspartate aminotransferase [Enzymatic activity/volume] in Serum or Plasma N 22 U/L 15 U/L - 37 U/L December 30, 2023 2:08:00 AM UTC (TECH: [employer]) 1742-6 Alanine aminotransferase [Enzymatic activity/volume] in Serum or Plasma N 27 U/L 12 U/L - 78 U/L December 30, 2023 2:08:00 AM UTC (TECH: [employer]) 6768-6 Alkaline phosphatase [Enzymatic activity/volume] in Serum or Plasma H 183 U/L 50 U/L - 120 U/L December 30, 2023 2:08:00 AM UTC (TECH: [employer]) ORDER 300: B-TYPE NATRIURETI C PEPTIDE BNP (LOINC: 76726-5) ORDER DATE: December 30, 2023 1:45:00 AM UTC Specimen Source: Whole Blood Specimen Type: Whole blood s ample PERFORMING LAB: [address] [id number] Result Comment: Final Result Date: December 30, 2023 2:18:00 AM UT (TECH: [employer]) LOINC TEST FLAG RESULT [place] [address]-3 Natriuretic peptide B [Mass/volume] in Serum or Plasma H 180.0 pg/mL 0.0 pg/mL - 100 pg/mL December 30, 2023 2:18:00 AM UT (TECH: [employer]) ORDER 400: UA AND MICRO/CULT IF INDICATED (LOINC: 68308-7) ORDER DATE: December 30, 2023 2:02:00 AM UTC Specimen Source: URINE Specimen Type: Urine specime n PERFORMING LAB: [address] [id number] Result Comment: Final Result Date: December 30, 2023 2:23:00 AM UT (TECH: [employer]) LOINC TEST FLAG RESULT REFERENCE RANGE UPDA KRISSY BY 5778-6 Color of Urine N LT YELLOW YELLOW December 30, 2023 2:23:00 AM UTC (TECH: [employer]) 5767-9 Appearance of Urine N CLEAR CLEAR December 30, 2023 2:23:00 AM UTC (TECH: [employer]) 5792-7 Glucose [Mass/volume] in Urine by Test strip N NORM NORMAL December 30, 2023 2:23:00 AM UTC (TECH: [employer]) 57572-3 Bilirubin.total [Mass/volume] in Urine by Automated test strip N NEGATIVE NEGATIVE December 30, 2023 2:23:00 AM UTC (TECH: [employer]) 5797-6 Ketones [Mass/volume] in Urine by Test strip N NEGATIVE NEGATIVE December 30, 2023 2:23:00 AM UTC (TECH: [employer]) 2965-2 Specific gravity of Urine N 1.010 1.005 - 1.035 December 30, 2023 2:23:00 AM UTC (TECH: [employer]) 26512-2 Erythrocytes [#/volume] in Urine by Automated test strip N 25 (1+) /mcL NEGATIVE December 30, 2023 2:23:00 AM UTC (TECH: [employer]) 82867-3 pH of Urine by Automated test strip N 5.00 5.0 - 7.5 December 30, 2023 2:23:00 AM UTC (TECH: [employer]) 10937-8 Protein [Presence] in Urine by Test strip N 15 (TRACE) mg/dL NEGATIVE December 30, 2023 2:23:00 AM UTC (TECH: [employer]) 67193-1 Urobilinogen [Mass/volume] in Urine by Automated test strip N NORM NORMAL December 30, 2023 2:23:00 AM UTC (TECH: [employer]) 57791-6 Nitrate [Presence] in Urine N NEGATIVE NEGATIVE December 30, 2023 2:23:00 AM UTC (TECH: [employer]) 94526-1 Leukocytes [#/volume] in Urine by Test strip N NEGATIVE NEGATIVE December 30, 2023 2:23:00 AM UTC (TECH: [employer]) 09144-6 Other elements in Urine sediment N NOT REQUIRED December 30, 2023 2:23:00 AM UTC (TECH: [employer]) 90195-5 Microscopic observation [Identifier] in Urine sediment by Light microscopy N YES December 30, 2023 2:23:00 AM UTC (TECH: [employer]) 13508-6 Erythrocytes [#/area] in Urine sediment by Microscopy high power field N RARE 0-3 December 30, 2023 2:23:00 AM UTC (TECH: [employer]) 5821-4 Leukocytes [#/area] in Urine sediment by Microscopy high power field N NONE SEEN NONE SEEN December 30, 2023 2:23:00 AM UTC (TECH: [employer]) 28266-4 Epithelial cells.squamous [#/area] in Urine sediment by Microscopy high power field N 1-5 NONE SEEN December 30, 2023 2:23:00 AM UTC (TECH: [employer]) 5769-5 Bacteria [#/area] in Urine sediment by Microscopy high power field N NONE SEEN NONE SEEN December 30, 2023 2:23:00 AM UTC (TECH: [employer]) ORDER 1800: HEMOGLOBIN A1C ( LOINC: 4548-4) ORDER DATE: December 30, 2023 3:32:00 AM UTC Specimen Source: Whole Blood Specimen Type: Whole blood s ample PERFORMING LAB: [address] [id number] Result Comment: Final Result Date: December 30, 2023 10:26:00 AM UTC (TECH: [employer]) LOINC TEST FLAG RESULT REFERENCE RANGE UPDA KRISSY BY 4548-4 Hemoglobin A1c/Hemoglobin.tota l in Blood H 8.4 % 4.5 % - 6.2 % December 30, 2023 10:26:00 AM UTC (TECH: [employer]) 82913-9 Glucose mean value [Mass/volume] in Blood Estimated from glycated hemoglobin H 194 mg/dl 82 mg/dl - 131 mg/dl December 30, 2023 10:26:00 AM UTC (TECH: [employer]) ORDER 1901: CBC AUTO NO DIFF HEMOGRAM (LOINC: 07492-3) ORDER DATE: December 30, 2023 3:32:00 AM UTC Specimen Source: Whole Blood Specimen Type: Whole blood s ample PERFORMING LAB: [address] [id number] Result Comment: Final Result Date: December 30, 2023 10:05:00 AM UTC (TECH: [employer]) LOINC TEST FLAG RESULT REFERENCE RANGE UPDA KRISSY BY 6690-2 Leukocytes [#/volume] in Blood by Automated count N 10.0 10^3/uL 4.5 10^3/uL - 11.5 10^3/uL December 30, 2023 10:05:00 AM UTC (TECH: [employer]) 789-8 Erythrocytes [#/volume] in Blood by Automated count N 4.76 10^6/uL 4.25 10^6/uL - 5.57 10^6/uL December 30, 2023 10:05:00 AM UTC (TECH: [employer]) 718-7 Hemoglobin [Mass/volume] in Blood N 13.7 g/dL 12.0 g/dL - 15.7 g/dL December 30, 2023 10:05:00 AM UTC (TECH: [employer]) 18204-6 Hematocrit [Volume Fraction] of Blood N 40.8 % 36.0 % - 47.0 % December 29 10:05:00 AM UTC (TECH: [employer]) 787-2 Erythrocyte mean corpuscular volume [Entitic volume] by Automated count N 85.7 fl 80 fl - 95 fl December 30, 2023 10:05:00 AM UTC (TECH: [employer]) 88137-5 Erythrocyte mean corpuscular hemoglobin [Entitic mass] in Blood from Fetus by Automated count N 28.8 pg 27.0 pg - 34.0 pg December 30, 2023 10:05:00 AM UTC (TECH: [employer]) 29673-0 Erythrocyte mean corpuscular hemoglobin concentration [Mass/volume] in Blood from Fetus by Automated count N 33.6 g/dL 32.0 g/dL - 36.0 g/dL December 30, 2023 10:05:00 AM UTC (TECH: [employer]) 03942-2 Platelets [#/volume] in Blood N 222 10^3/uL 150 10^3/uL - 450 10^3/uL December 30, 2023 10:05:00 AM UTC (TECH: [employer]) 37012-4 Erythrocyte distribution width [Ratio] N 13.0 % 12.3 % - 15.1 % December 30, 2023 10:05:00 AM UTC (TECH: [employer]) 19006-5 Platelet mean volume [Entitic volume] in Blood by Automated count N 10.2 fl 7.4 fl - 10.4 fl December 30, 2023 10:05:00 AM UTC (TECH: [employer]) ORDER 2001: BASIC METABOLIC PANEL (LOINC: 76771-7) ORDER DATE: December 30, 2023 3:32:00 AM UTC Specimen Source: Serum/Plasm a Specimen Type: Acellular blo od (serum or plasma) specimen PERFORMING LAB: [address] [id number] Result Comment: Final Result Date: December 30, 2023 10:27:00 AM [facility] (TECH: [employer]) LOINC TEST FLAG RESULT REFERENCE RANGE UPDA KRISSY BY 2951-2 Sodium [Moles/volume] in Serum or Plasma N 141 mmol/L 136 mmol/L - 145 mmol/L December 30, 2023 10:27:00 AM UT (TECH: [employer]) 2823-3 Potassium [Moles/volume] in Serum or Plasma N 4.1 mmol/L 3.5 mmol/L - 5.1 mmol/L December 30, 2023 10:27:00 AM [facility] (TECH: [employer]) 2075-0 Chloride [Moles/volume] in Serum or Plasma N 100 mmol/L 98 mmol/L - 107 mmol/L December 30, 2023 10:27:00 AM [facility] (TECH: [employer]) 8-9 Carbon dioxide, total [Moles/volume] in Serum or Plasma H 36 mmol/L 21 mmol/L - 32 mmol/L December 30, 2023 10:27:00 AM [facility] (TECH: [employer]) 44005-2 Anion gap 3 in Serum or Plasma N 5.0 December 30, 2023 10:27:00 AM [facility] (TECH: [employer]) 2345-7 Glucose [Mass/volume] in Serum or Plasma H 183 mg/dL 70 mg/dL - 110 mg/dL December 30, 2023 10:27:00 AM [facility] (TECH: [employer]) 3094-0 Urea nitrogen [Mass/volume] in Serum or Plasma H 23 mg/dL 7 mg/dL - 18 mg/dL December 30, 2023 10:27:00 AM UT (TECH: [employer]) 2160-0 Creatinine [Mass/volume] in Serum or Plasma N 1.0 mg/dL 0.6 mg/dL - 1.0 mg/dL December 30, 2023 10:27:00 AM [facility] (TECH: [employer]) 3097-3 Urea nitrogen/Creatinin e [Mass Ratio] in Serum or Plasma H 23.0 Ratio 9 Ratio - 21 Ratio December 30, 2023 10:27:00 AM UT (TECH: [employer]) 75029-4 Glomerular filtration rate/1.73 sq M.predicted by Creatinine-based formula (MDRD) N 61 mL/min >60 December 30, 2023 10:27:00 AM UT (TECH: [employer]) 85491-7 Calcium [Mass/volume] in Serum or Plasma N 9.1 mg/dL 8.5 mg/dL - 10.1 mg/dL December 30, 2023 10:27:00 AM UT (TECH: [employer]) ORDER 2002: BASIC METABOLIC PANEL (LOINC: 83576-7) ORDER DATE: December 30, 2023 3:32:00 AM UT Specimen Source: Serum/Plasm a Specimen Type: Acellular blo od (serum or plasma) specimen PERFORMING LAB: [address] [id number] Result Comment: Final Result Date: December 31, 2023 9:48:00 AM [facility] (TECH: [employer]) LOINC TEST FLAG RESULT REFERENCE RANGE UPDA KRISSY BY 2951-2 Sodium [Moles/volume] in Serum or Plasma N 138 mmol/L 136 mmol/L - 145 mmol/L December 31, 2023 9:48:00 AM UT (TECH: [employer]) 2823-3 Potassium [Moles/volume] in Serum or Plasma N 3.8 mmol/L 3.5 mmol/L - 5.1 mmol/L December 31, 2023 9:48:00 AM [facility] (TECH: [employer]) 2075-0 Chloride [Moles/volume] in Serum or Plasma L 96 mmol/L 98 mmol/L - 107 mmol/L December 31, 2023 9:48:00 AM UT (TECH: [employer]) 8-9 Carbon dioxide, total [Moles/volume] in Serum or Plasma H 41 mmol/L 21 mmol/L - 32 mmol/L December 31, 2023 9:48:00 AM UT (TECH: [employer]) 55995-4 Anion gap 3 in Serum or Plasma N 1.0 December 31, 2023 9:48:00 AM [facility] (TECH: [employer]) 2345-7 Glucose [Mass/volume] in Serum or Plasma H 164 mg/dL 70 mg/dL - 110 mg/dL December 31, 2023 9:48:00 AM UT (TECH: [employer]) 3094-0 Urea nitrogen [Mass/volume] in Serum or Plasma H 29 mg/dL 7 mg/dL - 18 mg/dL December 31, 2023 9:48:00 AM UTC (TECH: [employer]) 2160-0 Creatinine [Mass/volume] in Serum or Plasma N 1.0 mg/dL 0.6 mg/dL - 1.0 mg/dL December 31, 2023 9:48:00 AM UTC (TECH: [employer]) 3097-3 Urea nitrogen/Creatinin e [Mass Ratio] in Serum or Plasma H 29.0 Ratio 9 Ratio - 21 Ratio December 31, 2023 9:48:00 AM UTC (TECH: [employer]) 45277-9 Glomerular filtration rate/1.73 sq M.predicted by Creatinine-based formula (MDRD) N 61 mL/min >60 December 31, 2023 9:48:00 AM UTC (TECH: [employer]) 29197-1 Calcium [Mass/volume] in Serum or Plasma N 8.9 mg/dL 8.5 mg/dL - 10.1 mg/dL December 31, 2023 9:48:00 AM UTC (TECH: [employer]) ORDER 2101: MAGNESIUM (LOINC : 48594-3) ORDER DATE: December 30, 2023 3:32:00 AM UTC Specimen Source: Serum/Plasm a Specimen Type: Acellular blo od (serum or plasma) specimen PERFORMING LAB: [address] [id number] Result Comment: Final Result Date: December 30, 2023 10:27:00 AM UT (TECH: [employer]) LOINC TEST FLAG RESULT [place] [address]-1 Magnesium [Mass/volume] in Serum or Plasma L 1.7 mg/dL 1.8 mg/dL - 2.4 mg/dL December 30, 2023 10:27:00 AM UTC (TECH: [employer]) ORDER 210: MAGNESIUM (LOINC : 07142-7) ORDER DATE: December 30, 2023 3:32:00 AM UTC Specimen Source: Serum/Plasm a Specimen Type: Acellular blo od (serum or plasma) specimen PERFORMING LAB: [address] [id number] Result Comment: Final Result Date: December 31, 2023 9:48:00 AM UTC (TECH: [employer]) LOINC TEST FLAG RESULT [place] [address]-8 Magnesium [Mass/volume] in Serum or Plasma N 1.9 mg/dL 1.8 mg/dL - 2.4 mg/dL December 31, 2023 9:48:00 AM UTC (TECH: [employer]) ORDER 2200: GLUCOSE BLD METE R (LOINC: 20351-8) ORDER DATE: December 30, 2023 4:47:00 AM UTC Specimen Source: Whole Blood Specimen Type: Whole blood s ample PERFORMING LAB: [address] [id number] Result Comment: December 29 4:48:00 AM UTC Test performed by: [id number] ; Instrument: [id number] Final Result Date: December 30, 2023 4:47:00 AM UTC (TECH: [employer]) LOINC TEST FLAG RESULT [place] [address]-2 Glucose [Mass/volume] in Capillary blood by Glucometer H 148 mg/dl 70 mg/dl - 115 mg/dl December 30, 2023 4:47:00 AM UTC (TECH: [employer]) ORDER 3500: POTASSIUM (LOINC : 2823-3) ORDER DATE: December 31, 2023 2:17:00 AM UTC Specimen Source: Serum/Plasm a Specimen Type: Acellular blo od (serum or plasma) specimen PERFORMING LAB: [address] [id number] Result Comment: Final Result Date: December 31, 2023 3:06:00 AM UTC (TECH: [employer]) LOINC TEST FLAG RESULT REFERENCE RANGE UPDA KRISSY BY 2823-3 Potassium [Moles/volume] in Serum or Plasma N 3.7 mmol/L 3.5 mmol/L - 5.1 mmol/L December 31, 2023 3:06:00 AM UTC (TECH: RJV) LABORATORY NARRATIVE RESULTS Information is not available RADIOLOGY RESULTS ORDER 600: CHEST SINGLE VIEW /PORTABLE (LOINC: 84854-4) ORDER DATE: December 30, 2023 2:26:00 AM UTC PERFORMING LAB: [address] [id number] Final Result Date: December 30, 2023 11:38:46 AM UTC [address] [place] [address] Name: NIKI TRIPLETT Exam Date: 12/29/2023 : 1970 Age 53 years Gender: F Physician: HORTENCIA CALZADA Facility: [facility] Facility HSV: Outpatient Exam: CHEST SINGLE [...] FLO NICOLE 12/30/2023 Thank you for referring NIKI TRIPLETT to [facility]. Legally authenticated by BONNIE AMARAL MD 2023-12-30 [...] ibed: December 31, 2023 5:15:3 1 PM [facility] [id number] on December 31, 2023 5:15:31 PM [facility] Continued 370231 carvedilol 25 mg tablet 1 TAB BY MOUTH TWICE A DAY Prescr ibed: December 31, 2023 5:15:3 1 PM [facility] [id number] on December 31, 2023 5:15:31 PM [facility] Continued 120418 trazodone 50 mg tablet 50 MG BY MOUTH AT BEDTIME Prescr ibed: December 31, 2023 5:15:3 1 PM [facility] [id number] on December 31, 2023 5:15:31 PM [facility] Continued 573122 benzonatate 100 mg capsule 1 CAP BY MOUTH ONCE DAILY Prescr ibed: December 31, 2023 5:15:3 1 PM UTC [id number] on December 31, 2023 5:15:31 PM UT Continued 170968 tizanidine 4 mg capsule 1 CAP BY MOUTH TWICE A DAY Prescr ibed: December 31, 2023 5:15:3 1 PM [facility] [id number] on December 31, 2023 5:15:31 PM UT Continued 925126 Synthroid 88 mcg tablet 1 TAB BY MOUTH ONCE DAILY Prescr ibed: December 31, 2023 5:15:3 1 PM [facility] [id number] on December 31, 2023 5:15:31 PM UT Continued 899783 gabapentin (NEURONTIN) 400 MG BY MOUTH THREE TIMES A DAY Prescr ibed: December 31, 2023 5:15:3 1 PM [facility] [id number] on December 31, 2023 5:15:31 PM UT Continued 107482 furosemide 80 mg tablet 1 TAB BY MOUTH TWICE A DAY Prescr ibed: December 31, 2023 5:15:3 1 PM [facility] [id number] on December 31, 2023 5:15:31 PM UT Continued 725995 Novolin 70/30 U-100 Insulin 100 unit/mL (70-30) suspension 0 SUBCUTANEOUS TWICE A DAY Prescr ibed: December 31, 2023 5:15:3 1 PM [facility] [id number] on December 31, 2023 5:15:31 PM UT Continued 620688 fenofibrate 54 mg tablet 1 TAB BY MOUTH ONCE DAILY Prescr ibed: December 31, 2023 5:15:3 1 PM [facility] [id number] on December 31, 2023 5:15:31 PM UT Continued duloxetine 60 mg Capsule, Delayed Release Sprinkle 1 CAP BY MOUTH ONCE DAILY Prescr ibed: December 31, 2023 5:15:3 1 PM [facility] [id number] on December 31, 2023 5:15:31 PM [place] Continued [id number] Humulin R Regular U-100 Insuln 100 unit/mL solution 0 Prescr ibed: December 31, 2023 5:15:3 1 PM [facility] sliding scale [id number] on December 31, 2023 5:15:31 PM [place] Continued [id number] Basaglar KwikPen U-100 Insulin 100 unit/mL (3 mL) Insulin Pen 10 UNT SUBCUTANEOUS ONCE DAILY Prescr ibed: December 31, 2023 5:15:3 1 PM [facility] [id number] on December 31, 2023 5:15:31 PM UT Continued [id number] simvastatin 80 mg tablet 1 TAB BY MOUTH ONCE DAILY Prescr ibed: December 31, 2023 5:15:3 1 PM [facility] [id number] on December 31, 2023 5:15:31 PM UT Continued [id number] ropinirole 3 mg tablet 1 TAB BY MOUTH AT BEDTIME Prescr ibed: December 31, 2023 5:15:3 1 PM UT [id number] on December 31, 2023 5:15:31 PM UT Continued [id number] losartan 100 mg tablet 1 TAB BY MOUTH ONCE DAILY Prescr ibed: December 31, 2023 5:15:3 1 PM UT [id number] on December 31, 2023 5:15:31 PM UT Continued [id number] isosorbide mononitrate 30 mg Tablet, Extended Release 24 hr 1 TAB BY MOUTH ONCE DAILY Prescr ibed: December 31, 2023 5:15:3 1 PM [facility] [id number] on December 31, 2023 5:15:31 PM [facility] PATIENT OPEN ORDERS Code System Description Frequency Occurrences Priority [place] [address] [facility] Basic metabolic panel - Blood IN AM 0 Routine January 01, 2024 9:00:0 0 AM [facility] SRIRAM BLANKENSHIP [id number] on December 30, 2023 3:32:00 AM [facility] 34312-9 [facility] Magnesium [Mass/volume] in Serum or Plasma IN AM 0 Routine January 01, 2024 9:00:0 0 AM [facility] SRIRAM BLANKENSHIP [id number] on December 30, 2023 3:32:00 AM [facility] REQNUT [employer] CONSULT [employer] ONE TIME 0 Routine December 30, 2023 5:26:0 0 AM [facility] CONCHA Salas MD [id number] on December 30, 2023 5:26:00 AM [facility] 6462-6 [facility] Bacteria identified in Wound by Culture ONE TIME 0 Routine December 31, 2023 2:56:0 0 PM [facility] CONCHA Salas MD [id number] on December 31, 2023 2:56:00 PM [facility] SCHEDULED PROCEDURES Code System Description Status Scheduled Date Upd ated By Patient scheduled procedure information is not available. HOSPITAL COURSE HOSPITAL COURSE Note Title Discharge Summary Date Of Service December 31, 2023 5:16:4 2 PM [facility] Created By [id number] on December 31, 2023 5:16:42 PM [facility] Signed By [id number] on December 31, 2023 5:18:54 PM [facility] 53-year-old woman with sever e morbid obesity, [...] venous studies. MEDICATIONS HOME MEDICATIONS Status RXNORM TNC Medication Dose Route Frequency Dates Comments Reported By Updated By Active [id number] 18474 37742 3 trazodone 50 mg tablet 50.0 MG BY MOUTH BEDTIME Last Dose: [id number] on December 30, 2023 1:27:17 PM [facility] Active 749941 67743 82537 1 Novolin 70/30 U-100 Insulin 100 unit/mL (70-30) suspension 0.0 SUBCUT ANEOUS BID Last Dose: [id number] on December 31, 2023 5:15:06 PM [facility] Active 7806042 41793 95784 9 Basaglar SaharaikPen U-100 Insulin 100 unit/mL (3 mL) Insulin Pen 10.0 UNT SUBCUT ANEOUS DAILY Last Dose: [id number] on December 30, 2023 2:06:37 AM [facility] Active 761724 73116 71491 1 Humulin R Regular U-100 Insuln 100 unit/mL solution 0.0 Last Dose: sliding scale [id number] on December 31, 2023 5:14:55 PM UT Active 976988 48202 92370 9 losartan 100 mg tablet 1.0 TAB BY MOUTH DAILY Last Dose: [id number] on December 30, 2023 1:28:15 PM UT Active FreeT extMe d duloxetine 60 mg Capsule, Delayed Release Sprinkle 1.0 CAP BY MOUTH DAILY Last Dose: [id number] on December 30, 2023 2:06:38 AM UT Active 266197 15021 27194 7 fenofibrate 54 mg tablet 1.0 TAB BY MOUTH DAILY Last Dose: [id number] on December 30, 2023 1:28:14 PM UT Active 944988 99628 94766 0 simvastatin 80 mg tablet 1.0 TAB BY MOUTH DAILY Last Dose: [id number] on December 30, 2023 2:06:38 AM [facility] Active 396827 38123 41989 1 tizanidine 4 mg capsule 1.0 CAP BY MOUTH BID Last Dose: [id number] on December 30, 2023 1:28:14 PM [facility] Active 743073 72990 43968 1 furosemide 80 mg tablet 1.0 TAB BY MOUTH BID Last Dose: [id number] on December 30, 2023 1:28:14 PM [facility] Active 859294 45760 40045 0 Synthroid 88 mcg tablet 1.0 TAB BY MOUTH DAILY Last Dose: [id number] on December 30, 2023 2:06:38 AM UT Active 338975 55106 60929 1 benzonatate 100 mg capsule 1.0 CAP BY MOUTH DAILY Last Dose: [id number] on December 30, 2023 1:28:14 PM [facility] Active 455760 46088 71613 0 carvedilol 25 mg tablet 1.0 TAB BY MOUTH BID Last Dose: [id number] on December 30, 2023 2:06:39 AM UT Active 590744 37496 02589 1 isosorbide mononitrate 30 mg Tablet, Extended Release 24 hr 1.0 TAB BY MOUTH DAILY Last Dose: [id number] on December 30, 2023 2:06:39 AM UT Active 923448 74537 90114 0 ropinirole 3 mg tablet 1.0 TAB BY MOUTH BEDTIME Last Dose: [id number] on December 30, 2023 2:06:39 AM UT Active FreeT extMe d dilaudid 0.5mg q 3hrs per internal pain pump ' 0.0 Q3H Last Dose: [id number] on December 31, 2023 5:14:45 PM UT Active 166337 34644 03610 1 gabapentin (NEURONTIN) 400.0 MG BY MOUTH TID Last Dose: PATIENT [id number] on December 31, 2023 12:07:32 PM UT DISCHARGE MEDICATIONS Status RXNORM [facility] Medication Dose Route Frequency Dates Comments Physician Updated By Continue d Free Text Med dilaudid 0.5mg q 3hrs per internal pain pump ' 0.0 EVERY THREE HOURS Prescr ibed: December 31, 2023 5:15:3 1 PM UT CONCHA Salas MD PHY [id number] on December 31, 2023 5:15:31 PM UT Continue d 601591 2308 0211 900 carvedilol 25 mg tablet 1.0 TAB BY MOUTH TWICE A DAY Prescr ibed: December 31, 2023 5:15:3 1 PM UT CONCHA Salas MD PHY [id number] on December 31, 2023 5:15:31 PM [facility] Continue d 926489 8662 5157 503 trazodone 50 mg tablet 50.0 MG BY MOUTH AT BEDTIME Prescr ibed: December 31, 2023 5:15:3 1 PM [facility] CONCHA Salas MD, PHY [id number] on December 31, 2023 5:15:31 PM [facility] Continue d 897328 6620 0638 701 benzonatate 100 mg capsule 1.0 CAP BY MOUTH ONCE DAILY Prescr ibed: December 31, 2023 5:15:3 1 PM UT CONCHA Salas MD, PHY [id number] on December 31, 2023 5:15:31 PM [facility] Continue d 249706 9679 9887 201 tizanidine 4 mg capsule 1.0 CAP BY MOUTH TWICE A DAY Prescr ibed: December 31, 2023 5:15:3 1 PM UT CONCHA Salas MD PHY [id number] on December 31, 2023 5:15:31 PM UTC Continue d 439045 6106 4659 490 Synthroid 88 mcg tablet 1.0 TAB BY MOUTH ONCE DAILY Prescr ibed: December 31, 2023 5:15:3 1 PM UT CONCHA Salas MD PHY [id number] on December 31, 2023 5:15:31 PM UTC Continue d 089218 5725 7060 211 gabapentin (NEURONTIN) 400.0 MG BY MOUTH THREE TIMES A DAY Prescr ibed: December 31, 2023 5:15:3 1 PM UT CONCHA Salas MD Y [id number] on December 31, 2023 5:15:31 PM UTC Continue d 450615 3037 1047 001 furosemide 80 mg tablet 1.0 TAB BY MOUTH TWICE A DAY Prescr ibed: December 31, 2023 5:15:3 1 PM UT CONCHA Salas MD Y [id number] on December 31, 2023 5:15:31 PM UTC Continue d 930635 1881 9183 711 Novolin 70/30 U-100 Insulin 100 unit/mL (70-30) suspension 0.0 SUBCUT ANEOUS TWICE A DAY Prescr ibed: December 31, 2023 5:15:3 1 PM UT CONCHA Salas MD PHY [id number] on December 31, 2023 5:15:31 PM UTC Continue d 279769 4788 8710 077 fenofibrate 54 mg tablet 1.0 TAB BY MOUTH ONCE DAILY Prescr ibed: December 31, 2023 5:15:3 1 PM UT CONCHA Salas MD PHY [id number] on December 31, 2023 5:15:31 PM UTC Continue d Free Text Med duloxetine 60 mg Capsule, Delayed Release Sprinkle 1.0 CAP BY MOUTH ONCE DAILY Prescr ibed: December 31, 2023 5:15:3 1 PM UT CONCHA Salas MD PHY [id number] on December 31, 2023 5:15:31 PM UTC Continue d 292472 3026 2020 301 Humulin R Regular U-100 Insuln 100 unit/mL solution 0.0 Prescr ibed: December 31, 2023 5:15:3 1 PM UTC sliding scale CONCHA Salas MD PHY [id number] on December 31, 2023 5:15:31 PM UTC Continue d 6930431 5724 2771 559 Zoe Castaneda U-100 Insulin 100 unit/mL (3 mL) Insulin Pen 10.0 UNT SUBCUT ANEOUS ONCE DAILY Prescr ibed: December 31, 2023 5:15:3 1 PM UT CONCHA Salas MD PHY [id number] on December 31, 2023 5:15:31 PM UTC Continue d 252292 4418 2051 490 simvastatin 80 mg tablet 1.0 TAB BY MOUTH ONCE DAILY Prescr ibed: December 31, 2023 5:15:3 1 PM UT CONCHA Salas MD PHY [id number] on December 31, 2023 5:15:31 PM UT Continue d 658459 7263 7059 910 ropinirole 3 mg tablet 1.0 TAB BY MOUTH AT BEDTIME Prescr ibed: December 31, 2023 5:15:3 1 PM UT CONCHA Salas MD PHY [id number] on December 31, 2023 5:15:31 PM UTC Continue d 611016 1201 5014 399 losartan 100 mg tablet 1.0 TAB BY MOUTH ONCE DAILY Prescr ibed: December 31, 2023 5:15:3 1 PM UT CONCHA Salas MD PHY [id number] on December 31, 2023 5:15:31 PM UT Continue d 878345 5500 2017 501 isosorbide mononitrate 30 mg Tablet, Extended Release 24 hr 1.0 TAB BY MOUTH ONCE DAILY Prescr ibed: December 31, 2023 5:15:3 1 PM [facility] CONCHA Salas MD PHY [id number] on December 31, 2023 5:15:31 PM [facility] INPATIENT MEDICATIONS Status RXNORM [facility] Medication Dose Route Frequency Rat e Quantity Dates Comments Physician Updated By Zuri inued [id number] 4132 9602 204 furosemide 40mg vial (LASIX) 10 MG/ML SOLN 40.0 MG INTRAV ENOUS ONE TIME ONLY Start: December 30, 2023 2:29:0 0 AM UT End: December 30, 2023 2:29:0 0 AM UT ELSI Salas MD INTERF ED on December 30, 2023 2:28:00 AM UTC Discont inued 331915 5072 9002 420 metolazone (ZAROXOLYN) 5 MG TABS 5.0 MG BY MOUTH ONE TIME ONLY Start: December 30, 2023 3:07:0 0 AM UTC End: December 30, 2023 3:07:0 0 AM UTC ELSI Salas MD INTERFAC ED on December 30, 2023 3:07:00 AM UTC Discont inued 1401021 0279 9128 331 HYDROmorpho ne (DILAUDID) 1 MG/ML SOLN 1.0 MG INTRAV ENOUS ONE TIME ONLY Start: December 30, 2023 3:17:0 0 AM UTC End: December 30, 2023 3:17:0 0 AM UTC ELSI Salas MD INTERFAC ED on December 30, 2023 3:16:00 AM UTC Discont inued 747399 1766 6589 688 nicotine TD (NICODERM) 21 MG/24HR PT24 21.0 MG TRANSD ERMAL ONCE DAILY Start: December 30, 2023 3:25:0 0 AM UTC End: December 31, 2023 5:15:0 0 PM UTC FURNISH FELICIAMonica ROBLESP [id number] on December 30, 2023 3:30:00 AM UTC Discont inued 5700 6877 121 MONOJECT FLUSH SYRINGE 0.9 % SOLN 10.0 ML INTRAV ENOUS TWICE A DAY Start: December 30, 2023 1:00:0 0 PM UTC End: December 31, 2023 5:15:0 0 PM UTC FURNISH FELICIAMonica ROBLESP [id number] on December 30, 2023 3:30:00 AM UTC Discont inued 7209 7840 121 MONOJECT FLUSH SYRINGE 0.9 % SOLN 10.0 ML INTRAV ENOUS NEEDED Start: December 30, 2023 3:25:0 0 AM UTC End: December 31, 2023 5:15:0 0 PM UTC FURNISH FELICIAMonica ROBLESP [id number] on December 30, 2023 3:30:00 AM UTC Discont inued 721557 5345 3064 400 hydrALAZINE (APRESOLINE ) 20 MG/ML SOLN 10.0 MG INTRAV ENOUS EVERY FOUR HOURS NEEDED Start: December 30, 2023 3:25:0 0 AM UTC End: December 31, 2023 5:15:0 0 PM UTC FURNLYDIA ROBLESP [id number] on December 30, 2023 3:30:00 AM UTC Discont inued 2967329 4013 9233 934 LABETALOL 5 MG/ML SOLN 10.0 MG INTRAV ENOUS EVERY TWO HOURS NEEDED Start: December 30, 2023 3:25:0 0 AM UTC End: December 31, 2023 5:15:0 0 PM UTC FURNISH FELICIA ROBLESP [id number] on December 30, 2023 3:30:00 AM UTC Discont inued 0012 1176 130 MAG-AL PLUS 200-200-20 MG/5 ML LIQD 30.0 ML BY MOUTH EVERY SIX HOURS NEEDED Start: December 30, 2023 3:25:0 0 AM UTC End: December 31, 2023 5:15:0 0 PM UTC FURNLYDIA ROBLESP [id number] on December 30, 2023 3:30:00 AM UTC Discont inued 7490001 9724 1019 601 PERCOCET 5-325 MG TABS 1.0 TAB BY MOUTH EVERY SIX HOURS NEEDED Start: December 30, 2023 3:25:0 0 AM UTC End: December 31, 2023 5:15:0 0 PM UTC FURNLYDIA ROBLESP [id number] on December 30, 2023 3:30:00 AM UTC Discont inued 720355 5189 1043 301 traZODone (DESYREL) 50 MG TABS 50.0 MG BY MOUTH AT BEDTIME NEEDED Start: December 30, 2023 3:25:0 0 AM UTC End: December 31, 2023 5:15:0 0 PM UTC FURNLYDIA ROBLESP [id number] on December 30, 2023 3:30:00 AM UTC Discont inued 2545430 9105 9181 331 HYDROmorpho ne (DILAUDID) 1 MG/ML SOLN 1.0 MG INTRAV ENOUS EVERY FOUR HOURS NEEDED Start: December 30, 2023 3:25:0 0 AM UTC End: December 30, 2023 1:28:5 9 PM UTC FURNISH FELICIA JACKSON [employer] [id number] on December 30, 2023 1:28:00 PM UTC Discont inued 208028 2820 4634 361 ACETAMINOPH EN 325 MG TABS 650.0 MG BY MOUTH EVERY SIX HOURS NEEDED Start: December 30, 2023 3:25:0 0 AM UTC End: December 31, 2023 5:15:0 0 PM UTC FURNLYDIA ROBLESP [id number] on December 30, 2023 3:33:00 AM UTC Discont inued 2907379 1788 7070 911 docusate sodium (COLACE) 100 MG CAPS 100.0 MG BY MOUTH TWICE A DAY NEEDED Start: December 30, 2023 3:25:0 0 AM UTC End: December 31, 2023 5:15:0 0 PM UTC FURNLYDIA ROBLESP [id number] on December 30, 2023 3:30:00 AM UTC Discont inued 915375 2308 9058 630 polyethylen e glycol (MIRALAX) 3350 PK PACK 17.0 GM BY MOUTH ONCE DAILY NEEDED Start: December 30, 2023 3:25:0 0 AM UTC End: December 31, 2023 5:15:0 0 PM UTC FURNLYDIA ROBLESP [id number] on December 30, 2023 3:30:00 AM UTC Discont inued 346242 5055 3006 880 pantoprazol e (PROTONIX) 40 MG TBEC 40.0 MG BY MOUTH ONCE DAILY Start: December 30, 2023 1:00:0 0 PM UTC End: December 31, 2023 5:15:0 0 PM UTC FURNLYDIA ROBLESP [id number] on December 30, 2023 3:30:00 AM UTC Discont inued 155633 6079498642 7300 6909 082 enoxaparin (LOVENOX) 40 MG/0.4ML SOSY 40.0 MG SUBCUT ANEOUS ONCE DAILY Start: December 30, 2023 1:00:0 0 PM UTC End: December 30, 2023 2:22:1 0 PM UTC FURNLYDIA JACKSON [employer]LECT[employer] ENGRA[employer] [id number] on December 30, 2023 2:22:00 PM UTC Discont inued 8754388 5191 9475 503 ondansetron (ZOFRAN) 4 MG/2ML SOLN 4.0 MG INTRAV ENOUS EVERY EIGHT HOURS NEEDED Start: December 30, 2023 3:25:0 0 AM UTC End: December 31, 2023 5:15:0 0 PM UTC FURNLYDIA ROBLESP [id number] on December 30, 2023 3:30:00 AM UTC Discont inued 906513 8185 6024 064 ondansetron (ZOFRAN) 4 MG TBDP 4.0 MG SUBLIN GUAL EVERY EIGHT HOURS NEEDED Start: December 30, 2023 3:25:0 0 AM UTC End: December 31, 2023 5:15:0 0 PM UTC FURNLYDIA FELICIA LOPEZH ELECTRONIC ENGRAVER [id number] on December 30, 2023 3:30:00 AM UTC Discont inued 032093 7169 2751 017 insulin lispro(NICO LOG) 100 UNIT/ML SOLN 1.0 UNT SUBCUT ANEOUS SLIDING SCALE NEEDED Start: December 30, 2023 3:30:0 0 AM UTC End: December 31, 2023 5:15:0 0 PM UTC [facility] [id number] on December 30, 2023 3:31:00 AM UTC Discont inued 3258736 3347 9490 264 dextrose SYR (D50) PFS 50 % SOLN 50.0 ML INTRAV ENOUS NEEDED Start: December 30, 2023 3:30:0 0 AM UTC End: December 31, 2023 5:15:0 0 PM UTC FURNLYDIA FELICIA LOPEZH [employer]LECTRONIC ENGRAVER [id number] on December 30, 2023 3:31:00 AM UTC Discont inued 0829333 8398 0028 425 furosemide 100mg vial (LASIX) 10 MG/ML SOLN 100.0 MG INTRAV ENOUS CONT 40.0 ML/HR Start: December 30, 2023 3:31:0 0 AM UTC End: December 31, 2023 2:12:3 9 PM UTC FURNISH FELICIA LOPEZH [employer]LECTRONIC ENGRA[employer] [id number] on December 31, 2023 2:13:00 PM UTC Discont inued 4763376 8616 8004 948 sodium chloride (NS) 0.9% SOLN 90.0 ML INTRAV ENOUS CONT 40.0 ML/HR Start: December 30, 2023 3:31:0 0 AM UTC End: December 31, 2023 2:12:3 9 PM UTC SRIRAM BLANKENSHIP [id number] on December 31, 2023 2:13:00 PM UTC Discont inued 6150275 9313 0028 225 furosemide 20mg vial (LASIX) 10 MG/ML SOLN 20.0 MG INTRAV ENOUS ONE TIME ONLY Start: December 30, 2023 4:15:0 0 AM UTC End: December 30, 2023 4:15:0 0 AM UTC CONCHA Salas MD INTERFAC ED on December 30, 2023 4:13:00 AM UTC Discont inued 7772681 0854 9610 204 furosemide 40mg vial (LASIX) 10 [...] End: December 31, 2023 1:00:0 0 AM UT CONCHA Salas MD [id number] on December 30, 2023 1:31:00 PM UTC Discont inued Free Text Med Synthroid 88 mcg tablet 1.0 TAB BY MOUTH ONCE DAILY Start: December 31, 2023 1:00:0 0 PM UTC End: December 31, 2023 1:00:0 0 PM UTC CONCHA Salas MD [id number] on December 30, 2023 1:32:00 PM UTC Discont inued Free Text Med Basaglar KwikPen U-100 Insulin 100 unit/mL (3 mL) Insulin Pen 10.0 UNT SUBCUT ANEOUS ONCE DAILY Start: December 31, 2023 1:00:0 0 PM UTC End: December 31, 2023 1:00:0 0 PM UTC CONCHA Salas MD [id number] on December 30, 2023 1:33:00 PM UT Active 267534 0139 1043 301 traZODone (DESYREL) 50 MG TABS 50.0 MG BY MOUTH AT BEDTIME Start: December 31, 2023 1:00:0 0 AM UTC End: December 31, 2023 5:15:0 0 PM UTC CONCHA Salas MD [id number] on December 30, 2023 1:28:00 PM UTC Discont inued Free Text Med simvastatin 80 mg tablet 1.0 TAB BY MOUTH ONCE DAILY Start: December 31, 2023 1:00:0 0 PM UTC End: December 31, 2023 1:00:0 0 PM UTC CONCHA Salas MD [id number] on December 30, 2023 1:32:00 PM UTC Discont inued Free Text Med ropinirole 3 mg tablet 1.0 TAB BY MOUTH AT BEDTIME Start: December 31, 2023 1:00:0 0 AM UTC End: December 31, 2023 1:00:0 0 AM UTC CONCHA Salas MD [id number] on December 30, 2023 1:32:00 PM UTC Discont inued 872008 5708 2017 501 isosorbide mononitrate SR 30 MG TB24 30.0 MG BY MOUTH ONCE DAILY Start: December 31, 2023 1:00:0 0 PM UTC End: December 31, 2023 1:00:0 0 PM UTC CONCHA Salas MD [id number] on December 30, 2023 1:31:00 PM UTC Discont inued Free Text Med duloxetine 60 mg Capsule, Delayed Release Sprinkle 1.0 CAP BY MOUTH ONCE DAILY Start: December 31, 2023 1:00:0 0 PM UTC End: December 31, 2023 1:00:0 0 PM UTC CONCHA Salas MD [id number] on December 30, 2023 1:31:00 PM UTC Discont inued 168390 4232 4073 301 hydrALAZINE (APRESOLINE ) 25 MG TABS 25.0 MG BY MOUTH FOUR TIMES A DAY Start: December 30, 2023 1:28:0 0 PM UTC End: December 31, 2023 5:15:0 0 PM UTC CONCHA Salas MD [id number] on December 30, 2023 1:28:00 PM UTC Discont inued 192844 2467 4630 261 carvedilol (COREG) 12.5 MG TABS 25.0 MG BY MOUTH TWICE A DAY Start: December 30, 2023 1:30:0 0 PM UTC End: December 31, 2023 5:15:0 0 PM UTC CONCHA Salas MD [id number] on December 30, 2023 1:31:00 PM UTC Discont inued 131830 1026 4068 311 DULOXETINE HCL 30 MG CPEP 60.0 MG BY MOUTH ONCE DAILY Start: December 30, 2023 1:31:0 0 PM UTC End: December 31, 2023 5:15:0 0 PM UTC CONCHA Salas MD [id number] on December 30, 2023 1:31:00 PM UTC Active 696362 8999 2016 501 isosorbide mononitrate SR 30 MG TB24 30.0 MG BY MOUTH ONCE DAILY Start: December 31, 2023 1:00:0 0 PM UTC End: December 31, 2023 5:15:0 0 PM UTC CONCHA Salas MD [id number] on December 30, 2023 1:31:00 PM UTC Discont inued 506587 5204 2003 231 rOPINIRole (REQUIP) 1 MG TABS 3.0 MG BY MOUTH AT BEDTIME Start: December 31, 2023 1:00:0 0 AM UTC End: December 31, 2023 5:15:0 0 PM UTC CONCHA Salas MD [id number] on December 30, 2023 1:32:00 PM UTC Discont inued 865732 4241 9080 501 simvastatin (ZOCOR) 20 MG TABS 80.0 MG BY MOUTH AT BEDTIME Start: December 31, 2023 1:00:0 0 AM UTC End: December 31, 2023 5:15:0 0 PM UTC CONCHA Salas MD [id number] on December 30, 2023 1:32:00 PM UTC Discont inued 443164 2360 7111 401 levothyroxi ne (SYNTHROID) 88 MCG TABS 88.0 MCG BY MOUTH DAILY AT 0700 Start: December 31, 2023 11:00: 00 AM UTC End: December 31, 2023 5:15:0 0 PM UTC CONCHA Salas MD [id number] on December 30, 2023 1:32:00 PM UTC Discont inued 8663743 1346 6019 380 insulin glargine-YF GN 100 UNIT/ML SOLN 10.0 UNT SUBCUT ANEOUS ONCE DAILY Start: December 30, 2023 1:33:0 0 PM UTC End: December 31, 2023 5:15:0 0 PM UTC CONCHA Salas MD [id number] on December 30, 2023 1:33:00 PM UTC Discont inued 711685 3004 8041 082 enoxaparin (LOVENOX) 40 MG/0.4ML SOSY 40.0 MG SUBCUT ANEOUS TWICE A DAY Start: December 31, 2023 1:00:0 0 AM UTC End: December 31, 2023 5:15:0 0 PM UTC SRIRAM FELICIA JACKSON PATTIE [id number] on December 30, 2023 2:22:00 PM UTC Discont inued 6498 0033 901 MAGNESIUM-O XIDE 400 (240 Mg) MG TABS 400.0 MG BY MOUTH TWICE A DAY Start: December 30, 2023 2:35:0 0 PM UTC End: December 31, 2023 5:15:0 0 PM UTC CONCHA Salas MD [id number] on December 30, 2023 2:35:00 PM UTC Discont inued 6144745 9812 5578 911 KLOR-CON M20 20 MEQ TBCR 20.0 MEQ BY MOUTH ONCE DAILY Start: December 30, 2023 2:35:0 0 PM UTC End: December 31, 2023 5:15:0 0 PM UTC CONCHA Salas MD [id number] on December 30, 2023 2:35:00 PM UTC Discont inued 3125375 8045 1019 601 PERCOCET 5-325 MG TABS 1.0 TAB BY MOUTH ONE TIME ONLY Start: December 30, 2023 8:51:0 0 PM UTC End: December 30, 2023 8:56:1 5 PM UTC CONCHA Salas MD [id number] on December 30, 2023 8:56:00 PM UTC Discont inued 7171059 8477 9610 204 furosemide 40mg vial (LASIX) 10 MG/ML SOLN 40.0 MG INTRAV ENOUS ONE TIME ONLY Start: December 31, 2023 2:04:0 0 AM UTC End: December 31, 2023 2:04:0 0 AM UTC CONCHA Salas MD INTERFAC ED on December 31, 2023 2:02:00 AM UTC Discont inued 3226097 8112 0028 225 furosemide 20mg vial (LASIX) 10 MG/ML SOLN 20.0 MG INTRAV ENOUS ONE TIME ONLY Start: December 31, 2023 2:04:0 0 AM UTC End: December 31, 2023 2:04:0 0 AM UTC CONCHA Salas MD INTERFAC ED on December 31, 2023 2:03:00 AM UTC Discont inued 8059467 7064 9672 924 MAG SULF 2GM/50ML PRE-MIX 40 MG/ML SOLN 2.0 GM INTRAV ENOUS NOW 25.0 ML/HR Start: December 31, 2023 2:16:0 0 AM UTC End: December 31, 2023 2:23:2 2 AM UTC FURNISH FELICIA BLANKENSHIP [id number] on December 31, 2023 2:23:00 AM UTC Discont inued [id number] 8736 5531 911 KLOR-CON M20 20 MEQ TBCR 40.0 MEQ BY MOUTH ONE TIME ONLY Start: December 31, 2023 3:39:0 0 AM UTC End: December 31, 2023 3:59:0 8 AM UTC FURNISH FELICIA BLANKENSHIP [id number] on December 31, 2023 3:59:00 AM UTC Active 088946 8418 7060 211 gabapentin (NEURONTIN) 400 MG CAPS 400.0 MG BY MOUTH THREE TIMES A DAY Start: December 31, 2023 1:37:0 0 PM UTC End: December 31, 2023 5:15:0 0 PM UTC CONCHA Salas MD [id number] on December 31, 2023 1:37:00 PM UTC Discont inued [id number] 5503 0028 425 furosemide 100mg vial (LASIX) 10 MG/ML SOLN 100.0 MG INTRAV ENOUS CONT 10.0 ML/HR Start: December 31, 2023 3:00:0 0 PM UTC End: December 31, 2023 5:15:0 0 PM UTC FURNISH FELICIA BLANKENSHIP [id number] on December 31, 2023 2:13:00 PM UTC Discont inued 2257880 8165 8004 948 sodium chloride (NS) 0.9% SOLN 90.0 ML INTRAV ENOUS CONT 10.0 ML/HR Start: December 31, 2023 3:00:0 0 PM UTC End: December 31, 2023 5:15:0 0 PM UTC SRIRAM BLANKENSHIP [id number] on December 31, 2023 2:13:00 PM UTC Active XXXX XXX0 063 *PATIENT INFORMATION MISC 1.0 EA SEE COMMEN TS NEEDED Start: December 31, 2023 5:15:0 0 PM UTC End: December 31, 2023 5:15:0 0 PM UTC CONCHA Salas MD [id number] on December 31, 2023 5:16:00 PM UTC SOCIAL HISTORY SOCIAL HISTORY SNOMED-CT Social History Element Description Effective Dates Offered Cessation Comment UpdatedBy [id number] Current Tobacco smoking status Current Every Day Smoker Refused [id number] on December 31, 2023 1:18:46 PM UTC [id number] Historical Tobacco smoking status Former Smoker End: February 09, 2016 4:00:00 AM UTC Not Applicable [id number] on February 08, 2018 6:30:33 AM UTC [id number] Historical Tobacco smoking status Never Smoked Not Applicable [id number] on November 03, 2016 9:23:18 PM UT [...] vital sign as of December 31, 2023 8:15:40 PM [place] Loinc Code Vital [place] [address]-7 Blood glucose monitors December 30, 2023 9:47:00 PM UT 210.0 mg/dL [id number] on December 30, 2023 9:47:39 PM UT 8302-2 Body height December 30, 2023 4:59:45 AM UT 152.4 cm (60.0 in) [id number] on December 30, 2023 4:59:[place] [address]-8 Body mass index (BMI ) [Ratio] December 30, 2023 4:59:45 AM UTC 59.364 kg/m2 [id number] on December 30, 2023 4:59:45 AM UTC 3140-1 Body Surface Area Derived From Formula December 30, 2023 4:59:45 AM UTC 2.2302 m2 [id number] on December 30, 2023 4:59:45 AM UTC 8310-5 Body temperature December 31, 2023 11:21:00 AM UTC 98.5 [degF] [id number] on December 31, 2023 11:21:53 AM UTC 35438-9 Body weight Measured December 29 4:59:45 AM UTC 137.892 kg (304.0 lb) [id number] on December 30, 2023 4:59:45 AM UTC 8462-4 Diastolic blood pressure December 31, 2023 11:21:00 AM UTC 57.0 mm[Hg] [id number] on December 31, 2023 11:21:53 AM UTC 8867-4 Heart rate December 31, 2023 11:26:00 AM UTC 64 /min [id number] on December 31, 2023 7:18:55 PM UTC 43685-8 Oxygen saturation in Arterial blood by Pulse oximetry December 31, 2023 11:26:00 AM UTC 96.0 % [id number] on December 31, 2023 7:18:55 PM UTC 9279-1 Respiratory rate December 31, 2023 11:21:00 AM UTC 16 /min [id number] on December 31, 2023 11:21:53 AM UTC 69995-2 Spirometry panel December 31, 2023 11:26:00 AM UTC 7.0 {score} [id number] on December 31, 2023 7:18:55 PM UTC 8480-6 Systolic blood pressure December 31, 2023 11:21:00 AM UTC 123.0 mm[Hg] [id number] on December 31, 2023 11:21:53 AM UTC PEDIATRIC GROWTH CHART - VITAL SIGNS This section displays Head C ircumference Percentile, Weight for Length Percentile and BMI Percentile Loinc Code Pediatric Measure Age (Months) Result Updat ed By No Pediatric Growth Chart Pe rcentile Information Available. GOALS PATIENT GOALS Goal Assigned Date Updated By *NIKI L UZIEL WILL REC EIVE EVIDENCE BASED CARE FOR MED-SURG December 30, 2023 [id number] on December 30, 2023 5:27:49 AM UTC *NIKI TRIPLETT WILL REM AIN FREE FROM FALLS December 30, 2023 [id number] on December 30, 2023 5: 27:49 AM UTC *NIKI TRIPLETT WILL REM AIN FREE OF VTE December 30, 2023 [id number] on December 30, 2023 5: 27:49 AM UTC *NIKI TRIPLETT WILL REC EIVE EVIDENCE BASED CARE FOR VTE December 30, 2023 [id number] on December 30, 2023 5:27:49 AM UTC *NIKI TRIPLETT WILL REC IEVE ORAL CARE EVERY SHIFT December 30, 2023 [id number] on December 30, 2023 5: 27:49 AM UTC *NIKI TRIPLETT WILL REC IEVE EVIDENCED BASED CARE OF URINARY CATHETER December 30, 2023 [id number] on December 30, 2023 5: 29:29 AM UTC *NIKI TRIPLETT OR FAMIL Bertin VERBALIZES KNOWLEDGE OF TOBACCO CESSATION December 30, 2023 [id number] on December 30, 2023 5: 28:00 AM UTC *NIKI TRIPLETT WILL REC EIVE CARE FOR POSITIVE AIRWAY PRESSURE December 30, 2023 [id number] on December 30, 2023 4:56:09 AM UTC *NIKI TRIPLETT WILL REC EIVE CARE FOR OXYGEN MONITORING December 30, 2023 [id number] on December 30, 2023 4: 56:09 AM UTC *NIKI TRIPLETT WILL REC EIVE CARE FOR BRONCHIAL HYGIENE December 30, 2023 [id number] on December 30, 2023 5: 15:24 AM [...] Admission December 30, 2023 3:23:00 AM UTC [address] [id number] Discharge December 31, 2023 5:15:00 PM UTC DIS CHARGED TO HOME OR SELF CARE ENCOUNTER DIAGNOSES Notes information is not gloria ilable. Code System Diagnosis Onset Date Diagnosis information is not available. ABSTRACT DIAGNOSES Code System Diagnosis Updated By Abstract Diagnosis informati on is not available. CARE TEAM Care Sports Medicine Trainer Role NANCY KREN Primary Attending NANCY KERN Admitting NANCY KERN Referring YUSUF KEYES [facility] Care HOSPITAL DISCHARGE INSTRUCTION DISCHARGE INSTRUCTION Encounter [id number] Admit Date December 30, 2023 3:23: 00 AM [facility] Discharge Date December 31, 2023 5:15:0 0 PM [facility] PATIENT EDUCATION SUMMARY Patient/Visit Information: Patient Name: NIKI TRIPLETT Diag: Attending Caregiver: CONCHA Salas MD Discharge Instruction Sheets Provided: *[place] Patient Portal *BRBN Social Determinants of Health *BRBN Suicidal Feelings: How to Help Yourself (LPNT) () Chronic Venous Insufficiency Smoking\Tobacco Cessation - [facility] () () Patient Instructions: Additional Notes for *[place] Patient Portal Please follow up with your primary physician within one week. Followup Appointments/Instructions: HISTORY AND PHYSICAL NOTE HISTORY AND PHYSICAL NOTE Note Title Admission History an d Physical Date Of Service December 30, 2023 2:37: 45 PM [facility] Created By [id number] on December 30, 2023 2:37:45 PM [facility] Signed By [id number] on December 30, 2023 2:43:01 PM [facility] Chief Complaint Lower extremity swelling History of [...] 0.30 BASO# 0.02 IG# 0.07 MANDIFF? No 2140 Triage Meter BNP 180.0 (H) Procedures and [...] Advance Care Plan Electronically signed by CONCHA Salas MD PHBertin on 1043 Note Title Nurse Intake Note Date Of Service December 30, 2023 5:02: 30 AM UTC Created By [id number] on December 30, 2023 5:02:30 AM UTC Signed By [id number] on December 30, 2023 5:03:07 AM UTC [...] None Electronically signed by BERONICA Carlos - ATTORNEY LAWYER on 0103 DISCHARGE SUMMARY NOTE DISCHARGE SUMMARY NOTE Note Title Discharge Summary Date Of Service December 31, 2023 5:16:4 2 PM UTC Created By [id number] on December 31, 2023 5:16:42 PM UTC Signed By [id number] on December 31, 2023 5:18:54 PM UTC Admit Date Admit Date: Discharge Date Discharge Date: December 31, 2023 Patient Care Team Admitting Provider: CONCHA LOVETT Attending Provider:CONCHA LOVETT Consulting Provider: Hospital [...] Intake 900 - 1280 Output 9200 3050 57576 Balance (-8300) (-3050) (-77663) Physical Exam Respiratory Symmetry of chest movement [...] (H) EGFR 61 CALCIUM 8.9 MG 1.9 0 Chemistry K 3.7 Procedures and Surgeries None Condition at Discharge Good Discharge Medications <style size='11'>Zoe Castaneda U-100 Insulin 100 unit/mL (3 mL) Insulin Pen</style><style size='9' forecolor='#872396'>10 UNT SUBCUTANEOUS ONCE DAILY </style> <style size='11'>benzonatate 100 mg capsule</style><style size='9' forecolor='#374827'>1 CAP BY MOUTH ONCE DAILY </style> <style size='11'>carvedilol 25 mg tablet</style><style size='9' forecolor='#461244'>1 TAB BY MOUTH TWICE A DAY </style> <style size='11'>dilaudid 0.5mg q 3hrs per internal pain pump '</style>Continue taking same as home <style size='11'>duloxetine 60 mg Capsule, Delayed Release Sprinkle</style><style size='9' forecolor='#198657'>1 CAP BY MOUTH ONCE DAILY </style> <style size='11'>fenofibrate 54 mg tablet</style><style size='9' forecolor='#699534'>1 TAB BY MOUTH ONCE DAILY </style> <style size='11'>furosemide 80 mg tablet</style><style size='9' forecolor='#687257'>1 TAB BY MOUTH TWICE A DAY </style> <style size='11'>gabapentin (NEURONTIN)</style><style size='9' forecolor='#618150'>400 MG BY MOUTH THREE TIMES A DAY </style> <style size='11'>Humulin R Regular U-100 Insuln 100 unit/mL solution</style>Continue taking same as home <style size='11'>isosorbide mononitrate 30 mg Tablet, Extended Release 24 hr</style><style size='9' forecolor='#664080'>1 TAB BY MOUTH ONCE DAILY </style> <style size='11'>losartan 100 mg tablet</style><style size='9' forecolor='#016375'>1 TAB BY MOUTH ONCE DAILY </style> <style size='11'>Novolin 70/30 U-100 Insulin 100 unit/mL (70-30) suspension</style>Continue taking same as home <style size='11'>ropinirole 3 mg tablet</style><style size='9' forecolor='#064748'>1 TAB BY MOUTH AT BEDTIME </style> <style size='11'>simvastatin 80 mg tablet</style><style size='9' forecolor='#790060'>1 TAB BY MOUTH ONCE DAILY </style> <style size='11'>Synthroid 88 mcg tablet</style><style size='9' forecolor='#250461'>1 TAB BY MOUTH ONCE DAILY </style> <style size='11'>tizanidine 4 mg capsule</style><style size='9' forecolor='#706738'>1 CAP BY MOUTH TWICE A DAY </style> <style size='11'>trazodone 50 mg tablet</style><style size='9' forecolor='#945246'>50 MG BY MOUTH AT BEDTIME </style> Discharge Instructions Daily weights. Diabetic diet. Follow-Up PCP this week. Podiatry next week. Time spent with Patient 35 minutes Electronically signed by CONCHA LOVETT on 6808 CARE TEAM CARE sped teacher Role on Team Status Start Date End Date Update d By CONCHA LOVETT Referring normal December 30, 2023 4:06:26 AM UTC December 31, 2023 5:15:00 PM UTC [email or web address] on December 30, 2023 4:06:26 AM UTC CONCHA LOVETT Attending normal December 30, 2023 4:06:25 AM UTC December 31, 2023 5:15:00 PM UTC [email or web address] on December 30, 2023 4:06:26 AM UTC CONCHA LOVETT Admitting normal December 30, 2023 [...] 30, 2023 4:06:26 AM UTC ELSI LOVETT Admitting normal December 30, 2023 1:44:17 AM UTC December 30, 2023 3:24:51 AM [facility] BRBNDAYEND on December 30, 2023 4:06:26 AM [facility] PETE Rivers MD PCP normal December 30, 2023 1:08:54 AM [facility] December 30, 2023 1:44:17 AM [facility] [email or web address] on December 30, 2023 4:06:26 AM [facility]
--- OUTSIDE RECORDS SUMMARY | 2024-07-15 11:15 | XMS_ITS | Continuity of Care Document ---
Author Organization [facility] Phone Care Team Providers Care Stopper Maker Name Role Phone YUSUF KEYES Unavailable YUSUF KEYES Primary Care YUSUF KEYES Admitting YUSUF KEYES Primary Attending ALLERGIES AND ADVERSE REACTIONS ALLERGIES AND ADVERSE REACTIONS Code System Allergy Substance Adverse Reaction Date Reaction (Severity) Comment Status Reported By Updated By 5640 RXNorm IBUPROFEN Rash (Moderate) active [id number] on June 17, 2024 10:36:21 PM [facility] 2193 RXNorm Rocephin Rash (Moderate) active [id number] on June 17, 2024 10:36:21 PM [facility] 3640 RXNorm Inapsine Shortness of breath/diffi culty breathing active [id number] on June 17, 2024 10:36:21 PM [facility] [id number] RXNorm AVELOX Rash (Moderate) active [id number] on June 17, 2024 10:36:21 PM [facility] FAMILY HISTORY RELATION: Father Status: LIVING SNOMED-CT Diagnosis Age At Onset [id number] Diabetes mellitus [id number] Hypertensive disorder [id number] Hypercholesterolemia [id number] Arthritis RELATION: Mother Status: LIVING SNOMED-CT Diagnosis Age At Onset [id number] Diabetes mellitus 45826060 Hypertensive disorder 34907496 Hypercholesterolemia 4884325 Arthritis TREATMENT PLAN DISCHARGE MEDICATIONS Status RXNORM Medication Dose Route Frequency Dates Comments U pdated By Patient discharge medication information is not available. PATIENT OPEN ORDERS Code System Description Frequency Occurrence s Priority [place] [id number] [facility] Abdomen US ONE TIME 0 Routine June 20, 2024 2:17:00 PM [place] STEPHY DOYLE APRN [id number] on June 20, 2024 2:45:00 PM [facility] SCHEDULED PROCEDURES Code System Description [...] e Quantity Dates Comments Physician Updated By No Inpatient Medication Info rmation Available SOCIAL HISTORY SOCIAL HISTORY SNOMED-CT Social History Element Description Effective Dates Offered Cessation Comment UpdatedBy [id number] Historical Tobacco smoking status Current Every Day Smoker Refused [id number] on December 31, 2023 1:18:46 PM [facility] [id number] Historical Tobacco smoking status Former Smoker End: February 09, 2016 4:00:00 AM [place] Not Applicable [id number] on February 08, 2018 6:30:33 AM [place] [id number] Historical Tobacco smoking status Never Smoked Not Applicable [id number] on November 03, 2016 9:23:18 PM [facility] SOCIAL HISTORY - Gender Sex: Female SOCIAL HISTORY - Status : status i nformation is not available Intention in Next Year: intention information is not available SOCIAL HISTORY - Sexual Behavior Sexual Orientation Gender Identity SNOMED-CT Description SNO MED -CT Description Activity Level No of Partners Partner Type UpdatedBy Information is not available HEALTH CONCERNS Problems Concern Status Health Concern problem infor mation not available. Smoking Status Status Years Used Consumed packs p er day Health Concern smoking histo ry information not available. Family History Concern Status Health Concern family histor y information not available. ENCOUNTERS ENCOUNTER INFORMATION Reason for Visit R10.9 Admission June 20, 2024 1:50:00 PM [place] [facility] [address] [address] Discharge June 20, 2024 1:50:00 PM [place] [facility] DISCHARGED TO HOME OR SELF CARE ENCOUNTER DIAGNOSES Notes information is not gloria ilable. Code System Diagnosis Onset Date Diagnosis information is not available. ABSTRACT DIAGNOSES Code System Diagnosis Updated By R10.9 ICD10 UNSPECIFIED ABDOMINAL PAIN M [id number] on June 18, 2024 3:20:27 PM [facility] CARE TEAM Care Stopper Maker Role YUSUF KEYES Referring YUSUF KEYES Primary Care YUSUF KEYES Admitting YUSUF KEYES Primary Attending CARE TEAM CARE cafe aide Role on Team Status Start Date End Date Update d By STEPHY DOYLE APRN PCP normal June 18, 2024 3:20:27 PM [facility] June 20, 2024 1:50:00 PM [place] [id number] on June 18, 2024 3:20:27 PM UTC STONE YUSUF DOYLE APRN Referring normal June 18, 2024 3:20:27 PM UTC June 20, 2024 1:50:00 PM UTC [id number] on June 18, 2024 3:20:27 PM UTC STONE YUSUF DOYLE APRN Attending normal June 18, 2024 3:20:27 PM UTC June 20, 2024 1:50:00 PM UTC [id number] on June 18, 2024 3:20:27 PM UTC STONE YUSUF DOYLE APRN Admitting normal June 18, 2024 3:20:27 PM UTC June 20, 2024 1:50:00 PM UTC [id number] on June 18, 2024 3:20:27 PM UTC
--- OUTSIDE RECORDS SUMMARY | 2024-07-15 11:16 | XMS_ITS | Continuity of Care Document ---
Author Organization [facility] Phone Care Team Providers Care Pullman Car Clerk Name Role Phone YUSUF KEYES Primary Care LUCHO FREEMAN Admitting LUCHO FREEMAN Unavailable LUCHO FREEMAN Primary Attending ALLERGIES AND ADVERSE REACTIONS ALLERGIES AND ADVERSE REACTIONS Code System Allergy Substance Adverse Reaction Date Reaction (Severity) Comment Status Reported By Updated By 5640 RXNorm IBUPROFEN Rash (Moderate) active [id number] on March 03, 2024 7:47:53 PM UT 2193 RXNorm Rocephin Rash (Moderate) active [id number] on March 03, 2024 7:47:53 PM UT 3643 RXNorm Inapsine Shortness of breath/diffic ulty breathing active [id number] on March 03, 2024 7:47:53 PM UTC [id number] RXNorm AVELOX Rash (Moderate) active [id number] on March 03, 2024 7:47:53 PM UTC FAMILY HISTORY RELATION: Father Status: LIVING SNOMED-CT Diagnosis Age At Onset [id number] Diabetes mellitus [id number] Hypertensive disorder [id number] Hypercholesterolemia 1350361 Arthritis RELATION: Mother Status: LIVING SNOMED-CT Diagnosis Age At Onset [id number] Diabetes mellitus 21729255 Hypertensive disorder [id number] Hypercholesterolemia 7195296 Arthritis RESULTS Patient: UZIEL Cheng Date of : 1970 LABORATORY RESULTS ORDER 100: CBC AUTO W DIFF ( LOINC: 14514-0) ORDER DATE: March 03, 2024 8:00:00 PM UTC Specimen Source: Whole Blood Specimen Type: Whole blood s ample PERFORMING LAB: [address] [id number] Result Comment: Final Result Date: March 03, 2024 8:16:00 PM UT (TECH: [employer]) LOINC TEST FLAG RESULT REFERENCE RANGE UPDA KRISSY BY 6690-2 Leukocytes [#/volume] in Blood by Automated count N 8.9 10^3/uL 4.5 10^3/uL - 11.5 10^3/uL March 03, 2024 8:16:00 PM UTC (Face-Me: [employer]) 789-8 Erythrocytes [#/volume] in Blood by Automated count N 5.07 10^6/uL 4.25 10^6/uL - 5.57 10^6/uL March 03, 2024 8:16:00 PM UTC (Face-Me: [employer]) 718-7 Hemoglobin [Mass/volume] in Blood N 14.6 g/dL 12.0 g/dL - 15.7 g/dL March 03, 2024 8:16:00 PM UTC (TECH: [employer]) 07479-9 Hematocrit [Volume Fraction] of Blood N 44.7 % 36.0 % - 47.0 % March 03, 2024 8:16:00 PM UTC (Face-Me: [employer]) 787-2 Erythrocyte mean corpuscular volume [Entitic volume] by Automated count N 88.2 fl 80 fl - 95 fl March 03, 2024 8:16:00 PM UTC (TECH: [employer]) 04217-0 Erythrocyte mean corpuscular hemoglobin [Entitic mass] in Blood from [place]etus by Automated count N 28.8 pg 27.0 pg - 34.0 pg March 03, 2024 8:16:00 PM UTC (TECH: [employer]) 37761-1 Erythrocyte mean corpuscular hemoglobin concentration [Mass/volume] in Blood from Fetus by Automated count N 32.7 g/dL 32.0 g/dL - 36.0 g/dL March 03, 2024 8:16:00 PM UTC (TECH: [employer]) 21565-9 Platelets [#/volume] in Blood N 235 10^3/uL 150 10^3/uL - 450 10^3/uL March 03, 2024 8:16:00 PM UTC (Face-Me: [employer]) 99801-5 Erythrocyte distribution width [Ratio] N 14.4 % 12.3 % - 15.1 % March 03, 2024 8:16:00 PM UTC (TECH: [employer]) 97070-8 Platelet mean volume [Entitic volume] in Blood by Automated count N 10.3 fl 7.4 fl - 10.4 fl March 03, 2024 8:16:00 PM UTC (TECH: [employer]) 05502-7 Granulocytes/100 leukocytes in Blood by Automated count [...] March 03, 2024 8:16:00 PM UTC (TECH: [employer]) 27153-7 Immature granulocytes [#/volume] in Blood N 0.2 % 0.0 % - 0.8 % March 03, 2024 8:16:00 PM UTC (TECH: [employer]) 71768-8 Granulocytes [#/volume] in Blood by Automated count [...] March 03, 2024 8:16:00 PM UT (TECH: [employer]) 97069-4 Immature granulocytes [#/volume] in Blood N 0.02 10^3/uL March 03, 2024 8:16:00 PM UT (TECH: [employer]) 38185-4 Manual differential performed [Presence] in Blood N NO March 03, 2024 8:16:00 PM UT (TECH: [employer]) ORDER 200: COMP METABOLIC PA MARLEY (LOINC: 86015-4) ORDER DATE: March 03, 2024 8:00:00 PM UT Specimen Source: Plasma Specimen Type: Plasma specim en PERFORMING LAB: [address] [id number] Result Comment: Final Result Date: March 03, 2024 8:27:00 PM UT (TECH: [employer]) LOINC TEST FLAG RESULT REFERENCE RANGE UPDA KRISSY BY 2951-2 Sodium [Moles/volume ] in Serum or Plasma L 135 mmol/L 136 mmol/L - 145 mmol/L March 03, 2024 8:27:00 PM UT (TECH: [employer]) 2823-3 Potassium [Moles/volume] in Serum or Plasma N 4.4 mmol/L 3.5 mmol/L - 5.1 mmol/L March 03, 2024 8:27:00 PM UT (TECH: [employer]) 2075-0 Chloride [Moles/volu me] in Serum or Plasma N 100 mmol/L 98 mmol/L - 107 mmol/L March 03, 2024 8:27:00 PM UT (TECH: [employer]) 8-9 Carbon dioxide, tota l [Moles/volume] in Serum or Plasma N 29 mmol/L 21 mmol/L - 32 mmol/L March 03, 2024 8:27:00 PM UT (TECH: [employer]) 76273-5 Anion gap 3 in Serum or Plasma N 6.0 March 03, 2024 8:27:00 PM UT (TECH: [employer]) 2345-7 Glucose [Mass/volume ] in Serum or Plasma H 298 mg/dL 70 mg/dL - 110 mg/dL March 03, 2024 8:27:00 PM UTC (TECH: [employer]) 3094-0 Urea nitrogen [Mass/volume] in Serum or Plasma N 15 mg/dL 7 mg/dL - 18 mg/dL March 03, 2024 8:27:00 PM [facility] (TECH: [employer]) 2160-0 Creatinine [Mass/volume] in Serum or Plasma N 0.9 mg/dL 0.6 mg/dL - 1.0 mg/dL March 03, 2024 8:27:00 PM [facility] (TECH: [employer]) 3097-3 Urea nitrogen/Creatinine [Mass Ratio] in Serum or Plasma N 16.7 Ratio 9 Ratio - 21 Ratio March 03, 2024 8:27:00 PM [facility] (TECH: [employer]) 62384-7 Glomerular filtratio n rate/1.73 sq M.predicted by Creatinine-based formula (MDRD) N 69 mL/min >60 March 03, 2024 8:27:00 PM [facility] (TECH: [employer]) 2885-2 Protein [Mass/volume ] in Serum or Plasma N 8.0 g/dL 6.4 g/dL - 8.2 g/dL March 03, 2024 8:27:00 PM [facility] (Face-Me: [employer]) 1751-7 Albumin [Mass/volume ] in Serum or Plasma L 2.6 g/dL 3.4 g/dL - 5.0 g/dL March 03, 2024 8:27:00 PM [facility] (TECH: [employer]) 74236-0 Calcium [Mass/volume ] in Serum or Plasma N 9.1 mg/dL 8.5 mg/dL - 10.1 mg/dL March 03, 2024 8:27:00 PM [facility] (Face-Me: [employer]) 72811-0 Calcium [Mass/volume ] corrected for total protein in Serum or Plasma H 10.2 mg/dL 8.5 mg/dL - 10.1 mg/dL March 03, 2024 8:27:00 PM [facility] (TECH: [employer]) 1975-2 Bilirubin.total [Mass/volume] in Serum or Plasma N 0.4 mg/dL 0.4 mg/dL - 1.5 mg/dL March 03, 2024 8:27:00 PM [facility] (TECH: [employer]) 1920-8 Aspartate aminotransferase [Enzymatic activity/volume] in Serum or Plasma H 47 U/L 15 U/L - 37 U/L March 03, 2024 8:27:00 PM [facility] (TECH: [employer]) 1742-6 Alanine aminotransferase [Enzymatic activity/volume] in Serum or Plasma N 49 U/L 12 U/L - 78 U/L March 03, 2024 8:27:00 PM UTC (TECH: [employer]) 6768-6 Alkaline phosphatase [Enzymatic activity/volume] in Serum or Plasma H 212 U/L 50 U/L - 120 U/L March 03, 2024 8:27:00 PM UT (TECH: [employer]) ORDER 500: LACTIC ACID (LOIN C: 81362-7) ORDER DATE: March 03, 2024 8:00:00 PM UTC Specimen Source: Serum/Plasm a Specimen Type: Acellular blo od (serum or plasma) specimen PERFORMING LAB: [place] [id number] Result Comment: Final Result Date: March 03, 2024 8:38:00 PM UT (TECH: [employer]) LOINC TEST FLAG [place] [address]-4 Lactate [Mass/volume] in Serum or Plasma N 1.0 mmole/L 0.4 mmole/L - 2.0 mmole/L March 03, 2024 8:38:00 PM UT (TECH: [employer]) ORDER 600: TROPONIN QUANT (L OINC: 38700-3) ORDER DATE: March 03, 2024 8:00:00 PM UTC Specimen Source: Plasma Specimen Type: Plasma specim en PERFORMING LAB: [address] [id number] Result Comment: Final Result Date: March 03, 2024 8:27:00 PM UT (TECH: [employer]) LOINC TEST FLAG [place] [address]-9 Troponin I.cardiac panel - Serum or Plasma by High sensitivity method N 22 ng/L 0 ng/L - 51 ng/L March 03, 2024 8:27:00 PM UT (TECH: [employer]) ORDER 700: B-TYPE NATRIURETI C PEPTIDE BNP (LOINC: 61738-6) ORDER DATE: March 03, 2024 8:00:00 PM UTC Specimen Source: Whole Blood Specimen Type: Whole blood s ample PERFORMING LAB: [address] [id number] Result Comment: Final Result Date: March 03, 2024 9:15:00 PM UT (TECH: [employer]) LOINC TEST FLAG [place]ULT [place] [address]-5 Natriuretic peptide B [Mass/volume] in Serum or Plasma H 731.0 pg/mL 0.0 pg/mL - 100 pg/mL March 03, 2024 9:15:00 PM UTC (TECH: [employer]) ORDER 900: GRAM STAIN (LOINC : 664-3) ORDER DATE: March 03, 2024 8:00:00 PM UTC Specimen Source: Culture Specimen Type: Culture - gen eral PERFORMING LAB: [address] [id number] Result Comment: March 03, 2024 8:44:00 PM UTC Sub-optimal specimen. Hold culture for 24 hrs. Final Result Date: March 03, 2024 8:44:00 PM UTC (TECH: [employer]) LOINC TEST FLAG [place] [address]-5 Specimen source subj ect [Type] N SPUTUM [...] 03, 2024 8:44:00 PM UTC (TECH: [employer]) 65956-5 Leukocytes [Presence ] in Unspecified specimen by Gram stain N RARE March 03, 2024 8:44:00 PM UTC (TECH: [employer]) 21839-8 Epithelial cells [Presence] in Unspecified specimen by Gram stain N 10-25 March 03, 2024 8:44:00 PM [facility] (TECH: [employer]) 24104-0 Yeast [Presence] in Unspecified specimen by Wet preparation N NONE SEEN March 03, 2024 8:44:00 PM [facility] (TECH: [employer]) 648-6 Microscopic observat ion [Identifier] in Sputum by Gram stain N SUB-OPTIMAL March 03, 2024 8:44:00 PM [facility] (TECH: [employer]) LABORATORY NARRATIVE RESULTS Information is not available RADIOLOGY RESULTS ORDER 1000: CT CHEST PE PROT OCOL (LOINC: 65247-5) ORDER DATE: March 03, 2024 8:00:00 PM [facility] PERFORMING LAB: [address] [id number] Final Result Date: March 03 9:54:[address] [place] [address] Name: NIKI TRIPLETT Exam Date: 03/03/2024 : 1970 Age 53 years Gender: F Physician: Facility: [facility] Facility HSV: Outpatient Exam: CT CHEST [...] Thank you for referring NIKI TRIPLETT to [facility]. Legally authenticated by JUDD Nunez MD 2024-03-03 [...] 0 Stat March 03, 2024 8:00:00 PM [facility] PETE Salas MD [id number] on March 03, 2024 8:00:00 PM [facility] 600-7 LOINC Bacteria identified in Blood by Culture ONE TIME 0 Stat March 03, 2024 8:00:00 PM [facility] PETE Salas MD 3726 on March 03, 2024 8:00:00 PM [facility] 05390-0 LOINC Gas panel - Arterial blood ONE TIME 0 Stat March 03, 2024 9:07:00 PM [facility] PETE Salas MD [id number] on March 03, 2024 9:07:00 PM [facility] SCHEDULED PROCEDURES Code [...] Quantity Dates Comments Physician Updated [facility] [id number] 3549 1032 608 nitroglycer in oint (NITRO-BID) 2 % OINT 1.0 IN TOPICA L ONE TIME ONLY Start: March 03, 2024 8:06:0 0 PM [facility] End: March 03, 2024 8:06:0 0 PM UTC PETE Salas MD INTERFAC ED on March 03, 2024 8:05:00 PM UTC Discont inued [id number] 3214 9610 204 furosemide 40mg vial (LASIX) 10 MG/ML SOLN 40.0 MG INTRAV ENOUS ONE TIME ONLY Start: March 03, 2024 8:06:0 0 PM UTC End: March 03, 2024 8:06:0 0 PM UTC PETE Salas MD INTERFAC ED on March 03, 2024 8:05:00 PM UTC Discont inued [id number] 9488 302 803 METHYLPREDN ISOLONE SODIUM SUCC 125 MG SOLR 125.0 MG INTRAV ENOUS ONE TIME ONLY Start: March 03, 2024 8:06:0 0 PM UTC End: March 03, 2024 8:06:0 0 PM UTC PETE Salas MD INTERFAC ED on March 03, 2024 8:05:00 PM UTC Discont inued [id number] 4626 7020 101 DUONEB 0.5-2.5 MG/3 ML SOLN 1.0 NEB INHALE D ONE TIME ONLY Start: March 03, 2024 8:14:0 0 PM UTC End: March 03, 2024 8:14:0 0 PM UTC PETE Salas MD INTERFAC ED on March 03, 2024 8:12:00 PM UTC Discont inued 8777520 9751 3039 810 azithromyci n (ZITHROMAX) 500 MG SOLR 500.0 MG INTRAV ENOUS ONE TIME ONLY Start: March 03, 2024 8:28:0 0 PM UTC End: March 03, 2024 8:28:0 0 PM UTC PETE Salas MD INTERFAC ED on March 03, 2024 8:27:00 PM UTC Discont inued [id number] 4118 7020 101 DUONEB 0.5-2.5 MG/3 ML SOLN 1.0 NEB INHALE D ONE TIME ONLY Start: March 03, 2024 9:14:0 0 PM UTC End: March 03, 2024 9:14:0 0 PM UTC PETE Salas MD INTERFAC ED on March 03, 2024 9:12:00 PM UTC SOCIAL HISTORY SOCIAL HISTORY SNOMED-CT Social History Element Description Effective Dates Offered Cessation Comment UpdatedBy [id number] Historical Tobacco smoking status Current Every Day Smoker Refused [id number] on December 31, 2023 1:18:46 PM UT 6324789 Historical Tobacco smoking status Former Smoker End: February 09, 2016 4:00:00 AM UT Not Applicable [id number] on February 08, 2018 6:30:33 AM UT 337278552 Historical Tobacco smoking status Never Smoked Not Applicable [id number] on November 03, 2016 9:23:18 PM UT [...] for each vital sign as of March 07, 2024 6:34:13 AM [facility] Loinc Code Vital Sign Activity Date Result Updated By 8310-5 Body temperature March 03, 2024 7: 45:00 PM UT 98.8 [degF] [id number] on March 03, 2024 8:12:59 PM UT 8462-4 Diastolic blood pressure March 03, 2024 9:45:00 PM UT 91.0 mm[Hg] [id number] on March 03, 2024 10:01:41 PM UT 8867-4 Heart rate March 03, 2024 9:5 7:00 PM UT 81 /min [id number] on March 03, 2024 10:01:42 PM [facility] 64172-5 Oxygen saturation in Arterial blood by Pulse oximetry March 03, 2024 9:57:00 PM UT 95.0 % [id number] on March 03, 2024 10:01:42 PM UT 9279-1 Respiratory rate March 03, 2024 9: 04:00 PM UT 18 /min [id number] on March 03, 2024 9:08:08 PM UT 8480-6 Systolic blood pressure March 03, 2024 9:45:00 PM UTC 162.0 mm[Hg] [id number] on March 03, 2024 10:01:41 PM [facility] PEDIATRIC GROWTH CHART - VITAL [...] BREATH Admission March 03, 2024 7:42:[address] [id number] Discharge March 03, 2024 10:34:00 PM UT LEF T AGAINST ADVICE OR DISCONTINUED ENCOUNTER DIAGNOSES Notes information is not gloria ilable. Code System Diagnosis Onset Date Diagnosis information is not available. ABSTRACT DIAGNOSES Code System Diagnosis Updated By R06.02 ICD10 SHORTNESS OF BREATH [id number] on March 07, 2024 6:33:51 AM UT R06.00 ICD10 DYSPNEA, UNSPECIFIED [id number] on March 07, 2024 6:33:51 AM [facility] R06.2 ICD10 WHEEZING [id number] on March 07, 2024 6:33:51 AM [facility] Z53.29 ICD10 PROCEDURE AND TR EATMENT NOT CARRIED OUT BECAUSE OF PATIENT'S DECISION FOR OTHER REASONS [id number] on March 07, 2024 6:33:51 AM UT J44.0 ICD10 CHRONIC OBSTRUCT DIANA PULMONARY DISEASE WITH (ACUTE) LOWER RESPIRATORY INFECTION [id number] on March 07, 2024 6:33:51 AM UT I11.0 ICD10 HYPERTENSIVE HEA RT DISEASE WITH HEART FAILURE [id number] on March 07, 2024 6:33:51 AM UT 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 [id number] on March 07, 2024 6:33:51 AM UT E66.01 ICD10 MORBID (SEVERE) OBESITY DUE TO EXCESS CALORIES [id number] on March 07, 2024 6:33:51 AM UT F17.210 ICD10 NICOTINE DEPENDE NCE, CIGARETTES, UNCOMPLICATED [id number] on March 07, 2024 6:33:51 AM UT Z68.42 ICD10 BODY MASS INDEX [BMI] 45.0-4 9.9, ADULT [id number] on March 07, 2024 6:33:51 AM UTC Z88.1 ICD10 ALLERGY STATUS T O OTHER ANTIBIOTIC AGENTS [id number] on March 07, 2024 6:33:51 AM UTC Z88.6 ICD10 ALLERGY STATUS TO ANALGESIC AGENT [id number] on March 07, 2024 6:33:51 AM UTC Z88.8 ICD10 ALLERGY STATUS T O OTHER DRUGS, MEDICAMENTS AND BIOLOGICAL SUBSTANCES [id number] on March 07, 2024 6:33:51 AM UTC CARE TEAM Care Pullman Car Clerk Role YUSUF KEYES Primary Care LUCHO FREEMAN Admitting LUCHO FREEMAN Referring LUCHO FREEMAN Primary Attending CARE TEAM CARE doctor's assistant Role on Team Status Start Date End Date Update d By PETE Salas MD Referring normal March 03 8:08:07 PM UT March 03, 2024 10:34:00 PM UT [id number] on March 03, 2024 8:08:07 PM UT PETE Salas MD Attending normal March 03 8:08:07 PM UTC March 03, 2024 10:34:00 PM UTC [id number] on March 03, 2024 8:08:07 PM UT PETE Salas MD Admitting normal March 03 8:08:07 PM UTC March 03, 2024 10:34:00 PM UT [id number] on March 03, 2024 8:08:07 PM [facility] STEPHY DOYLE APRN PCP normal March 03, 2024 7:43:04 PM UTC March 03, 2024 10:34:00 PM UTC [id number] on March 03, 2024 8:08:07 PM [facility]
--- OUTSIDE RECORDS SUMMARY | 2024-07-15 11:16 | XMS_ITS | Continuity of Care Document ---
Author Organization [facility] Phone Care Team Providers Care Nurse Emergency Room Name Role Phone YUSUF KEYES Primary Care LUCHO FREEMAN Admitting LUCHO FREEMAN Unavailable LUCHO FREEMAN Primary Attending ALLERGIES AND ADVERSE REACTIONS ALLERGIES AND ADVERSE REACTIONS Code System Allergy Substance Adverse Reaction Date Reaction (Severity) Comment Status Reported By Updated By 5640 RXNorm IBUPROFEN Rash (Moderate) active [id number] on March 03, 2024 7:47:53 PM UT 2193 RXNorm Rocephin Rash (Moderate) active [id number] on March 03, 2024 7:47:53 PM UT 364 RXNorm Inapsine Shortness of breath/diffic ulty breathing active [id number] on March 03, 2024 7:47:53 PM UTC 895382 RXNorm AVELOX Rash (Moderate) active [id number] on March 03, 2024 7:47:53 PM UTC FAMILY HISTORY RELATION: Father Status: LIVING SNOMED-CT Diagnosis Age At Onset [id number] Diabetes mellitus [id number] Hypertensive disorder [id number] Hypercholesterolemia 9152065 Arthritis RELATION: Mother Status: LIVING SNOMED-CT Diagnosis Age At Onset [id number] Diabetes mellitus [id number] Hypertensive disorder [id number] Hypercholesterolemia 3038046 Arthritis RESULTS Patient: UZIEL Cheng Date of : 1970 LABORATORY RESULTS ORDER 100: CBC AUTO W DIFF ( LOINC: 78450-7) ORDER DATE: March 03, 2024 8:00:00 PM UTC Specimen Source: Whole Blood Specimen Type: Whole blood s ample PERFORMING LAB: [address] [id number] Result Comment: Final Result Date: March 03, 2024 8:16:00 PM UT (TECH: [place]) LOINC TEST FLAG RESULT REFERENCE RANGE UPDA KRISSY BY 6690-2 Leukocytes [#/volume] in Blood by Automated count N 8.9 10^3/uL 4.5 10^3/uL - 11.5 10^3/uL March 03, 2024 8:16:00 PM UTC (REPP: Handup) 789-8 Erythrocytes [#/volume] in Blood by Automated count N 5.07 10^6/uL 4.25 10^6/uL - 5.57 10^6/uL March 03, 2024 8:16:00 PM UTC (REPP: Handup) 718-7 Hemoglobin [Mass/volume] in Blood N 14.6 g/dL 12.0 g/dL - 15.7 g/dL March 03, 2024 8:16:00 PM UTC (TECH: Handup) 63303-2 Hematocrit [Volume Fraction] of Blood N 44.7 % 36.0 % - 47.0 % March 03, 2024 8:16:00 PM UTC (REPP: Handup) 787-2 Erythrocyte mean corpuscular volume [Entitic volume] by Automated count N 88.2 fl 80 fl - 95 fl March 03, 2024 8:16:00 PM UTC (TECH: Handup) 24433-9 Erythrocyte mean corpuscular hemoglobin [Entitic mass] in Blood from Fetus by Automated count N 28.8 pg 27.0 pg - 34.0 pg March 03, 2024 8:16:00 PM UTC (TECH: Handup) 33298-1 Erythrocyte mean corpuscular hemoglobin concentration [Mass/volume] in Blood from Fetus by Automated count N 32.7 g/dL 32.0 g/dL - 36.0 g/dL March 03, 2024 8:16:00 PM UTC (TECH: Handup) 09955-5 Platelets [#/volume] in Blood N 235 10^3/uL 150 10^3/uL - 450 10^3/uL March 03, 2024 8:16:00 PM UTC (REPP: Handup) 72309-9 Erythrocyte distribution width [Ratio] N 14.4 % 12.3 % - 15.1 % March 03, 2024 8:16:00 PM UTC (TECH: Handup) 95507-1 Platelet mean volume [Entitic volume] in Blood by Automated count N 10.3 fl 7.4 fl - 10.4 fl March 03, 2024 8:16:00 PM UTC (TECH: Handup) 88465-4 Granulocytes/100 leukocytes in Blood by Automated count [...] March 03, 2024 8:16:00 PM UTC (TECH: PinterestM) 83389-3 Immature granulocytes [#/volume] in Blood N 0.2 % 0.0 % - 0.8 % March 03, 2024 8:16:00 PM UTC (TECH: KSM) 22068-3 Granulocytes [#/volume] in Blood by Automated count [...] March 03, 2024 8:16:00 PM UT (TECH: Handup) 22597-1 Immature granulocytes [#/volume] in Blood N 0.02 10^3/uL March 03, 2024 8:16:00 PM UT (TECH: Handup) 50375-4 Manual differential performed [Presence] in Blood N NO March 03, 2024 8:16:00 PM UT (TECH: Handup) ORDER 200: COMP METABOLIC PA MARLEY (LOINC: 44405-8) ORDER DATE: March 03, 2024 8:00:00 PM UT Specimen Source: Plasma Specimen Type: Plasma specim en PERFORMING LAB: [address] [id number] Result Comment: Final Result Date: March 03, 2024 8:27:00 PM UT (TECH: Handup) LOINC TEST FLAG RESULT REFERENCE RANGE UPDA KRISSY BY 2951-2 Sodium [Moles/volume ] in Serum or Plasma L 135 mmol/L 136 mmol/L - 145 mmol/L March 03, 2024 8:27:00 PM UT (TECH: Handup) 2823-3 Potassium [Moles/volume] in Serum or Plasma N 4.4 mmol/L 3.5 mmol/L - 5.1 mmol/L March 03, 2024 8:27:00 PM UT (TECH: Handup) 2075-0 Chloride [Moles/volu me] in Serum or Plasma N 100 mmol/L 98 mmol/L - 107 mmol/L March 03, 2024 8:27:00 PM UT (TECH: Handup) 8-9 Carbon dioxide, tota l [Moles/volume] in Serum or Plasma N 29 mmol/L 21 mmol/L - 32 mmol/L March 03, 2024 8:27:00 PM UT (TECH: Handup) 11749-7 Anion gap 3 in Serum or Plasma N 6.0 March 03, 2024 8:27:00 PM UT (TECH: Handup) 2345-7 Glucose [Mass/volume ] in Serum or Plasma H 298 mg/dL 70 mg/dL - 110 mg/dL March 03, 2024 8:27:00 PM UTC (TECH: Handup) 3094-0 Urea nitrogen [Mass/volume] in Serum or Plasma N 15 mg/dL 7 mg/dL - 18 mg/dL March 03, 2024 8:27:00 PM [facility] (TECH: Handup) 2160-0 Creatinine [Mass/volume] in Serum or Plasma N 0.9 mg/dL 0.6 mg/dL - 1.0 mg/dL March 03, 2024 8:27:00 PM [facility] (TECH: Handup) 3097-3 Urea nitrogen/Creatinine [Mass Ratio] in Serum or Plasma N 16.7 Ratio 9 Ratio - 21 Ratio March 03, 2024 8:27:00 PM [facility] (TECH: Handup) 08989-1 Glomerular filtratio n rate/1.73 sq M.predicted by Creatinine-based formula (MDRD) N 69 mL/min >60 March 03, 2024 8:27:00 PM [facility] (TECH: Handup) 2885-2 Protein [Mass/volume ] in Serum or Plasma N 8.0 g/dL 6.4 g/dL - 8.2 g/dL March 03, 2024 8:27:00 PM [facility] (REPP: Handup) 1751-7 Albumin [Mass/volume ] in Serum or Plasma L 2.6 g/dL 3.4 g/dL - 5.0 g/dL March 03, 2024 8:27:00 PM [facility] (TECH: Handup) 13846-9 Calcium [Mass/volume ] in Serum or Plasma N 9.1 mg/dL 8.5 mg/dL - 10.1 mg/dL March 03, 2024 8:27:00 PM [facility] (REPP: Handup) 11073-3 Calcium [Mass/volume ] corrected for total protein in Serum or Plasma H 10.2 mg/dL 8.5 mg/dL - 10.1 mg/dL March 03, 2024 8:27:00 PM [facility] (TECH: Handup) 1975-2 Bilirubin.total [Mass/volume] in Serum or Plasma N 0.4 mg/dL 0.4 mg/dL - 1.5 mg/dL March 03, 2024 8:27:00 PM [facility] (TECH: Handup) 1920-8 Aspartate aminotransferase [Enzymatic activity/volume] in Serum or Plasma H 47 U/L 15 U/L - 37 U/L March 03, 2024 8:27:00 PM [facility] (TECH: KSM) 1742-6 Alanine aminotransferase [Enzymatic activity/volume] in Serum or Plasma N 49 U/L 12 U/L - 78 U/L March 03, 2024 8:27:00 PM UTC (TECH: KSM) 6768-6 Alkaline phosphatase [Enzymatic activity/volume] in Serum or Plasma H 212 U/L 50 U/L - 120 U/L March 03, 2024 8:27:00 PM UT (TECH: KSM) ORDER 500: LACTIC ACID (LOIN C: 87072-3) ORDER DATE: March 03, 2024 8:00:00 PM UTC Specimen Source: Serum/Plasm a Specimen Type: Acellular blo od (serum or plasma) specimen PERFORMING LAB: [place] [id number] Result Comment: Final Result Date: March 03, 2024 8:38:00 PM UT (TECH: KSM) LOINC TEST FLAG [place] [address]-7 Lactate [Mass/volume] in Serum or Plasma N 1.0 mmole/L 0.4 mmole/L - 2.0 mmole/L March 03, 2024 8:38:00 PM UT (TECH: KSM) ORDER 600: TROPONIN QUANT (L OINC: 29121-8) ORDER DATE: March 03, 2024 8:00:00 PM UTC Specimen Source: Plasma Specimen Type: Plasma specim en PERFORMING LAB: [address] [id number] Result Comment: Final Result Date: March 03, 2024 8:27:00 PM UT (TECH: KSM) LOINC TEST FLAG [place] [address]-2 Troponin I.cardiac panel - Serum or Plasma by High sensitivity method N 22 ng/L 0 ng/L - 51 ng/L March 03, 2024 8:27:00 PM UT (TECH: KSM) ORDER 700: B-TYPE NATRIURETI C PEPTIDE BNP (LOINC: 02563-4) ORDER DATE: March 03, 2024 8:00:00 PM UTC Specimen Source: Whole Blood Specimen Type: Whole blood s ample PERFORMING LAB: [address] [id number] Result Comment: Final Result Date: March 03, 2024 9:15:00 PM UT (TECH: KSM) LOINC TEST FLAG [place] [address]-1 Natriuretic peptide B [Mass/volume] in Serum or Plasma H 731.0 pg/mL 0.0 pg/mL - 100 pg/mL March 03, 2024 9:15:00 PM UTC (TECH: KSM) ORDER 900: GRAM STAIN (LOINC : 664-3) ORDER DATE: March 03, 2024 8:00:00 PM UTC Specimen Source: Culture Specimen Type: Culture - gen eral PERFORMING LAB: [address] [id number] Result Comment: March 03, 2024 8:44:00 PM UTC Sub-optimal specimen. Hold culture for 24 hrs. Final Result Date: March 03, 2024 8:44:00 PM UTC (TECH: KSM) LOINC TEST FLAG [place]ULT [place] [address]-8 Specimen source subj ect [Type] N SPUTUM [...] 03, 2024 8:44:00 PM UTC (TECH: KSM) 91770-1 Leukocytes [Presence ] in Unspecified specimen by Gram stain N RARE March 03, 2024 8:44:00 PM UTC (TECH: KSM) 24389-2 Epithelial cells [Presence] in Unspecified specimen by Gram stain N 10-25 March 03, 2024 8:44:00 PM [facility] (TECH: Handup) 49873-5 Yeast [Presence] in Unspecified specimen by Wet preparation N NONE SEEN March 03, 2024 8:44:00 PM [facility] (TECH: Handup) 648-6 Microscopic observat ion [Identifier] in Sputum by Gram stain N SUB-OPTIMAL March 03, 2024 8:44:00 PM [facility] (TECH: Handup) LABORATORY NARRATIVE RESULTS Information is not available RADIOLOGY RESULTS ORDER 1000: CT CHEST PE PROT OCOL (LOINC: 41221-2) ORDER DATE: March 03, 2024 8:00:00 PM [facility] PERFORMING LAB: [address] [id number] Final Result Date: March 03 9:54:[address] [place] [address] Name: NIKI TRIPLETT Exam Date: 03/03/2024 : 1970 Age 53 years Gender: F Physician: Facility: [facility] Facility HSV: Outpatient Exam: CT CHEST PE [...] Thank you for referring [facility]. Legally authenticated by JUDD Nunez MD 2024-03-03 [...] 0 Stat March 03, 2024 8:00:00 PM [facility] PETE Salas MD [id number] on March 03, 2024 8:00:00 PM [facility] 600-7 LOINC Bacteria identified in Blood by Culture ONE TIME 0 Stat March 03, 2024 8:00:00 PM [facility] PETE Salas MD [id number] on March 03, 2024 8:00:00 PM [facility] 65485-0 LOINC Gas panel - Arterial blood ONE TIME 0 Stat March 03, 2024 9:07:00 PM [facility] PETE Salas MD [id number] on March 03, 2024 9:07:00 PM [facility] SCHEDULED PROCEDURES Code System Description Status Scheduled [...] Quantity Dates Comments Physician Updated By [facility] [id number] 7925 1032 608 nitroglycer in oint (NITRO-BID) 2 % OINT 1.0 IN TOPICA L ONE TIME ONLY Start: March 03, 2024 8:06:0 0 PM [facility] End: March 03, 2024 8:06:0 0 PM UTC PETE Salas MD INTERFAC ED on March 03, 2024 8:05:00 PM UTC Discont inued [id number] 7722 9610 204 furosemide 40mg vial (LASIX) 10 MG/ML SOLN 40.0 MG INTRAV ENOUS ONE TIME ONLY Start: March 03, 2024 8:06:0 0 PM UTC End: March 03, 2024 8:06:0 0 PM UTC PETE Salas MD INTERFAC ED on March 03, 2024 8:05:00 PM UTC Discont inued [id number] 8848 302 803 METHYLPREDN ISOLONE SODIUM SUCC 125 MG SOLR 125.0 MG INTRAV ENOUS ONE TIME ONLY Start: March 03, 2024 8:06:0 0 PM UTC End: March 03, 2024 8:06:0 0 PM UTC PETE Salas MD INTERFAC ED on March 03, 2024 8:05:00 PM UTC Discont inued 0742640 7916 7020 101 DUONEB 0.5-2.5 MG/3 ML SOLN 1.0 NEB INHALE D ONE TIME ONLY Start: March 03, 2024 8:14:0 0 PM UTC End: March 03, 2024 8:14:0 0 PM UTC PETE Salas MD INTERFAC ED on March 03, 2024 8:12:00 PM UTC Discont inued 7889945 1224 3039 810 azithromyci n (ZITHROMAX) 500 MG SOLR 500.0 MG INTRAV ENOUS ONE TIME ONLY Start: March 03, 2024 8:28:0 0 PM UTC End: March 03, 2024 8:28:0 0 PM UTC PETE Salas MD INTERFAC ED on March 03, 2024 8:27:00 PM UTC Discont inued 0771973 7689 7020 101 DUONEB 0.5-2.5 MG/3 ML SOLN 1.0 NEB INHALE D ONE TIME ONLY Start: March 03, 2024 9:14:0 0 PM UTC End: March 03, 2024 9:14:0 0 PM UTC PETE Salas MD INTERFAC ED on March 03, 2024 9:12:00 PM UTC SOCIAL HISTORY SOCIAL HISTORY SNOMED-CT Social History Element Description Effective Dates Offered Cessation Comment UpdatedBy [id number] Historical Tobacco smoking status Current Every Day Smoker Refused [id number] on December 31, 2023 1:18:46 PM UT 7713777 Historical Tobacco smoking status Former Smoker End: February 09, 2016 4:00:00 AM UT Not Applicable [id number] on February 08, 2018 6:30:33 AM UT [id number] Historical Tobacco smoking status Never Smoked Not Applicable [id number] on November 03, 2016 9:23:18 PM UT [...] for each vital sign as of March 06, 2024 2:03:17 AM [facility] Loinc Code Vital Sign Activity Date Result Updated By 8310-5 Body temperature March 03, 2024 7: 45:00 PM UT 98.8 [degF] [id number] on March 03, 2024 8:12:59 PM UT 8462-4 Diastolic blood pressure March 03, 2024 9:45:00 PM UT 91.0 mm[Hg] [id number] on March 03, 2024 10:01:41 PM UT 8867-4 Heart rate March 03, 2024 9:5 7:00 PM UT 81 /min [id number] on March 03, 2024 10:01:42 PM [facility] 82624-5 Oxygen saturation in Arterial blood by Pulse oximetry March 03, 2024 9:57:00 PM UT 95.0 % [id number] on March 03, 2024 10:01:42 PM UT 9279-1 Respiratory rate March 03, 2024 9: 04:00 PM UT 18 /min [id number] on March 03, 2024 9:08:08 PM UT 8480-6 Systolic blood pressure March 03, 2024 9:45:00 PM UTC 162.0 mm[Hg] [id number] on March 03, 2024 10:01:41 PM [facility] PEDIATRIC GROWTH CHART - VITAL SIGNS This [...] BREATH Admission March 03, 2024 7:42:[address] [address] Discharge March 03, 2024 10:34:00 PM [facility] LEF T AGAINST ADVICE OR DISCONTINUED ENCOUNTER DIAGNOSES Notes information is not gloria ilable. Code System Diagnosis Onset Date Diagnosis information is not available. ABSTRACT DIAGNOSES Code System Diagnosis Updated By R06.02 ICD10 SHORTNESS OF BREATH [id number] on March 05, 2024 5:46:29 AM [facility] R06.00 ICD10 DYSPNEA, UNSPECIFIED [id number] on March 05, 2024 5:46:29 AM [facility] R06.2 ICD10 WHEEZING [id number] on March 05, 2024 5:46:29 AM [facility] J44.0 ICD10 CHRONIC OBSTRUCT DIANA PULMONARY DISEASE WITH (ACUTE) LOWER RESPIRATORY INFECTION [id number] on March 05, 2024 5:46:29 AM UT I11.0 ICD10 HYPERTENSIVE HEA RT DISEASE WITH HEART FAILURE [id number] on March 05, 2024 5:46:29 AM [facility] 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 [id number] on March 05, 2024 5:46:29 AM [facility] E66.01 ICD10 MORBID (SEVERE) OBESITY DUE TO EXCESS CALORIES [id number] on March 05, 2024 5:46:29 AM UT F17.210 ICD10 NICOTINE DEPENDE NCE, CIGARETTES, UNCOMPLICATED [id number] on March 05, 2024 5:46:29 AM UT Z68.42 ICD10 BODY MASS INDEX [BMI] 45.0-4 9.9, ADULT [id number] on March 05, 2024 5:46:29 AM UT Z88.1 ICD10 ALLERGY STATUS T O OTHER ANTIBIOTIC AGENTS [id number] on March 05, 2024 5:46:29 AM UT Z88.6 ICD10 ALLERGY STATUS TO ANALGESIC AGENT [id number] on March 05, 2024 5:46:29 AM UT Z88.8 ICD10 ALLERGY STATUS T O OTHER DRUGS, MEDICAMENTS AND BIOLOGICAL SUBSTANCES [id number] on March 05, 2024 5:46:29 AM UTC CARE TEAM Care Nurse Emergency Room Role YUSUF KEYES Primary Care LUCHO FREEMAN Admitting LUCHO FREEMAN Referring LUCHO FREEMAN 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 Role on Team Status Start Date End Date Update d By PETE aSlas MD Referring normal March 03 8:08:07 PM UT March 03, 2024 10:34:00 PM UT [id number] on March 03, 2024 8:08:07 PM [facility] PETE Salas MD Attending normal March 03 8:08:07 PM UT March 03, 2024 10:34:00 PM UTC [id number] on March 03, 2024 8:08:07 PM [facility] PETE Salas MD Admitting normal March 03 8:08:07 PM UTC March 03, 2024 10:34:00 PM UTC [id number] on March 03, 2024 8:08:07 PM [facility] STEPHY DOYLE APRN [facility] normal March 03, 2024 7:43:04 PM UTC March 03, 2024 10:34:00 PM UTC [id number] on March 03, 2024 8:08:07 PM [facility]
--- OUTSIDE RECORDS SUMMARY | 2024-07-15 11:16 | XMS_ITS | Continuity of Care Document ---
Author Organization [facility] Phone Care Team Providers Care Drop Wire Aliner Name Role Phone EMILIA RAMOS Primary Attending EMILIA RAMOS Admitting YUSUF KEYES Primary Care EMILIA RAMOS Unavailable ALLERGIES AND ADVERSE REACTIONS ALLERGIES AND ADVERSE REACTIONS Code System Allergy Substance Adverse Reaction Date Reaction (Severity) Comment Status Reported By Updated By 0540 RXNorm IBUPROFEN Rash (Moderate) active [id number] on June 17, 2024 10:36:21 PM UT 2193 RXNorm Rocephin Rash (Moderate) active [id number] on June 17, 2024 10:36:21 PM UT 3645 RXNorm Inapsine Shortness of breath/diffi culty breathing active [id number] on June 17, 2024 10:36:21 PM UT 687417 RXNorm AVELOX Rash (Moderate) active [id number] on June 17, 2024 10:36:21 PM UT FAMILY HISTORY RELATION: Father Status: LIVING SNOMED-CT Diagnosis Age At Onset [id number] Diabetes mellitus [id number] Hypertensive disorder 54109660 Hypercholesterolemia 6037508 Arthritis RELATION: Mother Status: LIVING SNOMED-CT Diagnosis Age At Onset [id number] Diabetes mellitus 88234297 Hypertensive disorder [id number] Hypercholesterolemia 9673760 Arthritis RESULTS Patient: UZIEL Cheng Date of : 1970 LABORATORY RESULTS ORDER 100: CBC AUTO W DIFF ( LOINC: 38308-4) ORDER DATE: June 17, 2024 11:08:00 PM UT Specimen Source: Whole Blood Specimen Type: Whole blood s ample PERFORMING LAB: [address] [id number] Result Comment: Final Result Date: June 17, 2024 11:26:00 PM UT (TECH: [employer]) LOINC TEST FLAG RESULT REFERENCE RANGE UPDA KRISSY BY 6690-2 Leukocytes [#/volume] in Blood by Automated count N 11.1 10^3/uL 4.5 10^3/uL - 11.5 10^3/uL June 17, 2024 11:26:00 PM UTC (TECH: [employer]) 789-8 Erythrocytes [#/volume] in Blood by Automated count N 5.00 10^6/uL 4.25 10^6/uL - 5.57 10^6/uL June 17, 2024 11:26:00 PM UTC (TECH: [employer]) 718-7 Hemoglobin [Mass/volume] in Blood N 14.4 g/dL 12.0 g/dL - 15.7 g/dL June 17, 2024 11:26:00 PM UTC (TECH: [employer]) 78408-7 Hematocrit [Volume Fraction] of Blood N 43.7 % 36.0 % - 47.0 % June 17, 2024 11:26:00 PM UTC (TECH: [employer]) 787-2 Erythrocyte mean corpuscular volume [Entitic volume] by Automated count N 87.4 fl 80 fl - 95 fl June 17, 2024 11:26:00 PM UTC (TECH: [employer]) 26433-2 Erythrocyte mean corpuscular hemoglobin [Entitic mass] in Blood from [place]etus by Automated count N 28.8 pg 27.0 pg - 34.0 pg June 17, 2024 11:26:00 PM UTC (TECH: [employer]) 98520-3 Erythrocyte mean corpuscular hemoglobin concentration [Mass/volume] in Blood from Fetus by Automated count N 33.0 g/dL 32.0 g/dL - 36.0 g/dL June 17, 2024 11:26:00 PM UTC (TECH: [employer]) 10599-9 Platelets [#/volume] in Blood N 242 10^3/uL 150 10^3/uL - 450 10^3/uL June 17, 2024 11:26:00 PM UTC (TECH: [employer]) 69363-0 Erythrocyte distribution width [Ratio] N 13.4 % 12.3 % - 15.1 % June 17, 2024 11:26:00 PM UTC (TECH: [employer]) 47544-9 Platelet mean volume [Entitic volume] in Blood by Automated count N 9.2 fl 7.4 fl - 10.4 fl June 17, 2024 11:26:00 PM UTC (TECH: RJV) 62475-4 Granulocytes/100 leukocytes in Blood by Automated count [...] 17, 2024 11:26:00 PM UTC (TECH: RJV) 36912-9 Immature granulocytes [#/volume] in Blood N 0.8 % 0.0 % - 0.8 % June 11:26:00 PM UTC (TECH: RJV) 69395-3 Granulocytes [#/volume] in Blood by Automated count [...] June 17, 2024 11:26:00 PM [place] (TECH: [employer]) 76253-7 Immature granulocytes [#/volume] in Blood N 0.09 10^3/uL June 11:26:00 PM UT (TECH: [employer]) 56134-6 Manual differential performed [Presence] in Blood N NO June 17, 2024 11:26:00 PM UT (TECH: [employer]) ORDER 200: COMP METABOLIC PA MARLEY (LOINC: 25331-4) ORDER DATE: June 17, 2024 11:08:00 PM UT Specimen Source: Plasma Specimen Type: Plasma specim en PERFORMING LAB: [address] [id number] Result Comment: Final Result Date: June 17, 2024 11:49:00 PM UT (TECH: [employer]) LOINC TEST FLAG RESULT REFERENCE RANGE UPDA KRISSY BY 2951-2 Sodium [Moles/volume ] in Serum or Plasma L 134 mmol/L 136 mmol/L - 145 mmol/L June 17, 2024 11:49:00 PM UT (TECH: [employer]) 2823-3 Potassium [Moles/volume] in Serum or Plasma N 4.9 mmol/L 3.5 mmol/L - 5.1 mmol/L June 17, 2024 11:49:00 PM UT (TECH: [employer]) 2075-0 Chloride [Moles/volume] in Serum or Plasma N 98 mmol/L 98 mmol/L - 107 mmol/L June 17, 2024 11:49:00 PM UT (TECH: [employer]) 8-9 Carbon dioxide, tota l [Moles/volume] in Serum or Plasma H 33 mmol/L 21 mmol/L - 32 mmol/L June 17, 2024 11:49:00 PM UT (TECH: [employer]) 07579-7 Anion gap 3 in Serum or Plasma N 3.0 June 17, 2024 11:49:00 PM UT (TECH: [employer]) 2345-7 Glucose [Mass/volume ] in Serum or Plasma N 100 mg/dL 70 mg/dL - 110 mg/dL June 17, 2024 11:49:00 PM UTC (TECH: [employer]) 3094-0 Urea nitrogen [Mass/volume] in Serum or Plasma N 12 mg/dL 7 mg/dL - 18 mg/dL June 17, 2024 11:49:00 PM UT (TECH: [employer]) 2160-0 Creatinine [Mass/volume] in Serum or Plasma N 0.6 mg/dL 0.6 mg/dL - 1.0 mg/dL June 17, 2024 11:49:[address] [facility] (TECH: [employer]) 3097-3 Urea nitrogen/Creatinine [Mass Ratio] in Serum or Plasma N 20.0 Ratio 9 Ratio - 21 Ratio June 17, 2024 11:49:[address] [facility] (TECH: [employer]) 85997-6 Glomerular filtratio n rate/1.73 sq M.predicted by Creatinine-based formula (MDRD) N 106 mL/min >60 June 17, 2024 11:49:[address] [facility] ([employer]: [employer]) 2885-2 Protein [Mass/volume ] in Serum or Plasma N 7.9 g/dL 6.4 g/dL - 8.2 g/dL June 17, 2024 11:49:[address] [facility] ([employer]: [employer]) 1751-7 Albumin [Mass/volume ] in Serum or Plasma L 2.6 g/dL 3.4 g/dL - 5.0 g/dL June 17, 2024 11:49:[address] [facility] (TECH: [employer]) 38161-2 Calcium [Mass/volume ] in Serum or Plasma N 9.2 mg/dL 8.5 mg/dL - 10.1 mg/dL June 17, 2024 11:49:[address] [facility] ([employer]: [employer]) 03448-0 Calcium [Mass/volume ] corrected for total protein in Serum or Plasma H 10.3 mg/dL 8.5 mg/dL - 10.1 mg/dL June 17, 2024 11:49:[address] [facility] (TECH: [employer]) 1975-2 Bilirubin.total [Mass/volume] in Serum or Plasma N 0.5 mg/dL 0.4 mg/dL - 1.5 mg/dL June 17, 2024 11:49:[address] [facility] (TECH: [employer]) 1920-8 Aspartate aminotransferase [Enzymatic activity/volume] in Serum or Plasma N 16 U/L 15 U/L - 37 U/L June 17, 2024 11:49:[address] [facility] (TECH: [employer]) 1742-6 Alanine aminotransferase [Enzymatic activity/volume] in Serum or Plasma N 15 U/L 12 U/L - 78 U/L June 17, 2024 11:49:00 PM UTC (TECH: RJV) 6768-6 Alkaline phosphatase [Enzymatic activity/volume] in Serum or Plasma H 135 U/L 50 U/L - 120 U/L June 17, 2024 11:49:00 PM UTC (TECH: RJV) ORDER 300: LACTIC ACID (LOIN C: 22961-4) ORDER DATE: June 17, 2024 11:08:00 PM UTC Specimen Source: Serum/Plasm a Specimen Type: Acellular blo od (serum or plasma) specimen PERFORMING LAB: [address] [id number] Result Comment: Final Result Date: June 17, 2024 11:42:00 PM UT (TECH: [employer]) LOINC TEST FLAG [place] [address]-2 Lactate [Mass/volume] in Serum or Plasma N 0.7 mmole/L 0.4 mmole/L - 2.0 mmole/L June 17, 2024 11:42:00 PM UT (TECH: RJV) ORDER 400: SEDIMENTATION RAT E (LOINC: 90404-6) ORDER DATE: June 17, 2024 11:08:00 PM UTC Specimen Source: Whole Blood Specimen Type: Whole blood s ample PERFORMING LAB: [address] [id number] Result Comment: Final Result Date: June 18, 2024 12:35:00 AM UT (TECH: [employer]) LOINC TEST FLAG [place] [address]-2 Erythrocyte sedimentation rate H 38 mm/Hr 0 mm/Hr - 30 mm/Hr June 18, 2024 12:35:00 AM UT (TECH: RJV) ORDER 500: C-REACTIVE PROTEI N (LOINC: 1988-01) ORDER DATE: June 17, 2024 11:08:00 PM UTC Specimen Source: Plasma Specimen Type: Plasma specim en PERFORMING LAB: [address] [id number] Result Comment: Final Result Date: June 17, 2024 11:49:00 PM UT (TECH: RJV) LOINC TEST FLAG RESULT REFERENCE RANGE UPDA KRISSY BY 1988-01 C reactive protein [Mass/volume] in Serum or Plasma H 2.00 mg/dL 0.05 mg/dL - 0.300 mg/dL June 17, 2024 11:49:00 PM UTC (TECH: [employer]) ORDER 600: TROPONIN QUANT (L OINC: 04286-3) ORDER DATE: June 17, 2024 11:08:00 PM UTC Specimen Source: Plasma Specimen Type: Plasma specim en PERFORMING LAB: [address] [id number] Result Comment: Final Result Date: June 17, 2024 11:42:00 PM UTC (TECH: [employer]) LOINC TEST FLAG [place] [address]-7 Troponin I.cardiac panel - Serum or Plasma by High sensitivity method N 5 ng/L 0 ng/L - 51 ng/L June 11:42:00 PM UTC (TECH: [employer]) ORDER 700: UA AND MICRO/CULT IF INDICATED (LOINC: 47779-1) ORDER DATE: June 17, 2024 11:08:00 PM UTC Specimen Source: URINE Specimen Type: Urine specime n PERFORMING LAB: [address] [id number] Result Comment: Final Result Date: June 18, 2024 12:44:00 AM UTC (TECH: [employer]) LOINC TEST FLAG RESULT REFERENCE RANGE UPDA KRISSY BY 5778-6 Color of Urine N YELLOW YELLOW [facility] 2023 12:44:00 AM UTC (TECH: [employer]) 5767-9 Appearance of Urine N CLEAR CLEAR June 18, 2024 12:44:00 AM UTC (TECH: [employer]) 5792-7 Glucose [Mass/volume ] in Urine by Test strip N NORM NORMAL June 18, 2024 12:44:00 AM UTC (TECH: [employer]) 12774-9 Bilirubin.total [Mass/volume] in Urine by Automated test strip N NEGATIVE NEGATIVE June 18 12:44:00 AM UTC (TECH: [employer]) 5797-6 Ketones [Mass/volume ] in Urine by Test strip N NEGATIVE NEGATIVE June 18, 2024 12:44:00 AM UTC (TECH: [employer]) 2965-2 Specific gravity of Urine N 1.005 1.005 - 1.035 June 18 12:44:00 AM UTC (TECH: RJV) 49463-8 Erythrocytes [#/volume] in Urine by Automated test strip N 25 (1+) /mcL NEGATIVE June 012023 12:44:00 AM UTC (TECH: [employer]) 38992-9 pH of Urine by Automated test strip N 6.50 5.0 - 7.5 June 012023 12:44:00 AM UTC (TECH: [employer]) 54135-7 Protein [Presence] i n Urine by Test strip N 100 (2+) mg/dL NEGATIVE June 12:44:00 AM UTC (TECH: [employer]) 14541-6 Urobilinogen [Mass/volume] in Urine by Automated test strip N NORM NORMAL June 18 12:44:00 AM UTC (TECH: [employer]) 53281-2 Nitrate [Presence] i n Urine N NEGATIVE NEGATIVE June 18 12:44:00 AM UTC (TECH: [employer]) 98281-4 Leukocytes [#/volume ] in Urine by Test strip N NEGATIVE NEGATIVE June 18, 2024 12:44:00 AM UTC (TECH: [employer]) 34504-6 Other elements in Urine sediment N NOT REQUIRED June 18 12:44:00 AM UTC (TECH: [employer]) 74003-3 Microscopic observation [Identifier] in Urine sediment by Light microscopy N YES June 18 12:44:00 AM UTC (TECH: [employer]) 77876-3 Erythrocytes [#/area ] in Urine sediment by Microscopy high power field N RARE 0-3 June 18 12:44:00 AM UTC (TECH: [employer]) 5821-4 Leukocytes [#/area] in Urine sediment by Microscopy high power field N RARE NONE SEEN June 18 12:44:00 AM UTC (TECH: [employer]) 21090-6 Epithelial cells.squamous [#/area] in Urine sediment by Microscopy high power field 10-20 NONE SEEN June 18 024 12:44:00 AM UTC (TECH: [employer]) 5769-5 Bacteria [#/area] in Urine sediment by Microscopy high power field N TRACE NONE SEEN June 18 12:44:00 AM UTC (TECH: [employer]) LABORATORY NARRATIVE RESULTS Information is not available RADIOLOGY RESULTS ORDER 900: CT EXTREM LWR RT W (LOINC: 28474-7) ORDER DATE: June 18, 2024 12:19:[address] [facility] PERFORMING LAB: [address] [place] [id number] Final Result Date: June 18, 2024 2:19:[address] [place] [address] Name: NIIK TRIPLETT Exam Date: 06/17/2024 : 1970 Age 54 years Gender: F Physician: EMILIA RAMOS Facility: [facility] Facility HSV: Outpatient Exam: CT EXTREM [...] Thank you for referring NIKI TRIPLETT to [facility]. Legally authenticated by ORI Rivers MD 2024-06-17 22:19:49 PATHOLOGY NARRATIVE RESULTS Information is not available MICROBIOLOGY RESULTS No Micro Labs/Results Exist for Patient BLOOD ADMIN RESULTS Information is not available MEDICATIONS HOME MEDICATIONS Status RXNORM [facility] Medication Dose Route Frequency Dates Comments Reported By Updated By Drug Treatment Unknown DISCHARGE MEDICATIONS Status RXNORM ND Medication Dose Route Frequency Dates Comments Physician Updated By No Discharge Medication Info rmation Available INPATIENT MEDICATIONS Status RXNORM [facility] Medication Dose Route Frequency Rat e Quantity Dates Comments Physician Updated By Discont inued [id number] 1750 3066 401 diphenhydrA MINE (BENADRYL) 50 MG/ML SOLN 50.0 MG INTRAV ENOUS ONE TIME ONLY Start: 2023 11:20: 00 PM UT End: 2023 11:20: 00 PM [facility] on 2023 11:19:00 PM UT Discont inued 0090 4673 061 ACETAMINOPH EN EXTRA STRENGTH 500 MG TABS 500.0 MG ORAL ONE TIME ONLY Start: 2023 11:42: 00 PM UT End: 2023 11:42: 00 PM [facility] 11:41:00 PM UT Discont inued [id number] 5290 9128 331 HYDROmorpho ne (DILAUDID) 1 MG/ML SOLN 1.0 MG INTRAV ENOUS ONE TIME ONLY Start: 2023 2:19:0 0 AM UT End: 2023 2:19:0 0 AM [facility] 2023 2:19:00 AM UT Discont inued [id number] 4180 0004 824 LEVOFLOXACI N IN D5W 750 MG/150ML SOLN 750.0 MG INTRAV ENOUS ONE TIME ONLY Start: 2023 2:25:0 0 AM UT End: 2023 2:25:0 0 AM [facility] 2023 2:24:00 AM UT SOCIAL HISTORY SOCIAL HISTORY SNOMED-CT Social History Element Description Effective Dates Offered Cessation Comment UpdatedBy [id number] Historical Tobacco smoking status Current Every Day Smoker Refused [id number] on December 31, 2023 1:18:46 PM UT [id number] Historical Tobacco smoking status Former Smoker End: February 09, 2016 4:00:00 AM UTC Not Applicable [id number] on February 08, 2018 6:30:33 AM UTC [id number] Historical Tobacco smoking status Never Smoked Not Applicable [id number] on November 03, 2016 9:23:18 PM UTC [...] for each vital sign as of June 19, 2024 9:03:22 AM UT Loinc Code Vital Sign Activity Date Result Updated By 8310-5 Body temperature June 17 10:34:15 PM UTC 98.9 [degF] [id number] on June 19, 2024 3:52:13 [place] [address]-9 Body weight Measured June 012023 3:52:14 AM UTC 110.677 kg (244.0 lb) [id number] on June 19, 2024 3:52:14 AM UT 8462-4 Diastolic blood pressure June 18, 2024 3:34:00 AM UTC 67.0 mm[Hg] [id number] on June 19, 2024 3:52:15 AM UT 8867-4 Heart rate June 18 3:34:00 AM UTC 72 /min [id number] on June 19, 2024 3:52:15 [place] [address]-0 Oxygen saturation in Arterial blood by Pulse oximetry June 18, 2024 3:34:00 AM UTC 96.0 % [id number] on June 19, 2024 3:52:15 AM UT 9279-1 Respiratory rate June 17 10:34:15 PM UTC 17 /min [id number] on June 19, 2024 3:52:13 AM UT 8480-6 Systolic blood pressure June 18, 2024 3:34:00 AM UTC 148.0 mm[Hg] [id number] on June 19, 2024 3:52:15 AM UT PEDIATRIC GROWTH CHART - VITAL [...] Admission June 17, 2024 10:26:[address] [address] Discharge June 18, 2024 3:51:00 AM UT DISCHARGED TO HOME OR SELF CARE ENCOUNTER DIAGNOSES Notes information is not gloria ilable. Code System Diagnosis Onset Date Diagnosis information is not available. ABSTRACT DIAGNOSES Code System Diagnosis Updated By M79.671 ICD10 PAIN IN RIGHT FOOT [id number] o n June 19, 2024 9:02:[address] [facility] R53.81 ICD10 OTHER MALAISE [id number] on Jun 9:02:[address] [facility] R53.83 ICD10 OTHER FATIGUE [id number] on Jun 9:02:[address] [facility] L03.115 ICD10 CELLULITIS OF RIGHT LOWER LI MB [id number] on June 19, 2024 9:02:[address] [facility] F17.210 ICD10 NICOTINE DEPENDE NCE, CIGARETTES, UNCOMPLICATED [id number] on June 19, 2024 9:02:[address] [facility] Z88.6 ICD10 ALLERGY STATUS TO ANALGESIC AGENT [id number] on June 19, 2024 9:02:[address] [facility] Z88.1 ICD10 ALLERGY STATUS T O OTHER ANTIBIOTIC AGENTS [id number] on June 19, 2024 9:02:[address] [facility] Z88.8 ICD10 ALLERGY STATUS T O OTHER DRUGS, MEDICAMENTS AND BIOLOGICAL SUBSTANCES [id number] on June 19, 2024 9:02:[address] [facility] CARE TEAM Care Drop Wire Aliner Role EMILIA RAMOS Primary Attending EMILIA RAMOS Admitting YUSUF KEYES Primary Care EMILIA RAMOS Referring CARE TEAM CARE box car loader Role on Team Status Start Date End Date Update d Benedicto NIETO DO Referring normal June 012023 10:53:23 PM UT June 18, 2024 3:51:[address] [facility] [id number] on June 17, 2024 10:53:23 PM UTC RICHARD NIETO DO Attending normal June 012023 10:53:23 PM UTC June 18, 2024 3:51:00 AM UT [id number] on June 17, 2024 10:53:23 PM UTC RICHARD NIETO DO Admitting normal June 012023 10:53:23 PM UTC June 18, 2024 3:51:00 AM UT [id number] on June 17, 2024 10:53:23 PM UT STEPHY DOYLE APRN PCP normal June 17, 2024 10:26:38 PM UTC June 18, 2024 3:51:00 AM UT [id number] on June 17, 2024 10:53:[address] [facility]
--- OUTSIDE RECORDS SUMMARY | 2024-07-15 11:16 | XMS_ITS | Continuity of Care Document ---
Author Organization [facility] Phone Care Team Providers Care Complex Care Nurse Practitioner Name Role Phone LUCHO FREEMAN Admitting LUCHO FREEMAN Unavailable YUSUF KEYES Primary Care LUCHO FREEMAN Primary Attending ALLERGIES AND ADVERSE REACTIONS ALLERGIES AND ADVERSE REACTIONS Code System Allergy Substance Adverse Reaction Date Reaction (Severity) Comment Status Reported By Updated By 5640 RXNorm IBUPROFEN Rash (Moderate) active [id number] on January 21, 2024 3:09:05 AM [facility] 2193 RXNorm Rocephin Rash (Moderate) active [id number] on January 21, 2024 3:09:05 AM [facility] 3648 RXNorm Inapsine Shortness of breath/diffic ulty breathing active [id number] on January 21, 2024 3:09:05 AM [facility] 648556 RXNorm AVELOX Rash (Moderate) active [id number] on January 21, 2024 3:09:05 AM [facility] FAMILY HISTORY RELATION: Father Status: LIVING SNOMED-CT Diagnosis Age At Onset [id number] Diabetes mellitus [id number] Hypertensive disorder [id number] Hypercholesterolemia 5148910 Arthritis RELATION: Mother Status: LIVING SNOMED-CT Diagnosis Age At Onset [id number] Diabetes mellitus [id number] Hypertensive disorder 92898699 Hypercholesterolemia 2547164 Arthritis RESULTS Patient: UZIEL Cheng Date of : 1970 LABORATORY RESULTS Information is not available LABORATORY NARRATIVE RESULTS Information is not available RADIOLOGY RESULTS ORDER 100: HAND LT 3V (LOINC : [id number]) ORDER DATE: January 21, 2024 3:19:00 AM [facility] PERFORMING LAB: [address] [id number] Final Result Date: January 21, 2024 12:29:[address] [place] [address] Name: NIKI TRIPLETT Exam Date: 01/20/2024 : 1970 Age 53 years Gender: F Physician: LUCHO FREEMAN Facility: [facility] Facility HSV: Outpatient Exam: HAND LT 3V LEFT HAND HISTORY:Hand pain FINDINGS: Three views show no evidence of an acute, displaced fracture or dislocation of the visualized bony architecture. There is soft tissue swelling. There is mild degenerative change. IMPRESSION: No acute bony abnormality Films reviewed , interpreted and dictated by Dr. Jorge Luis Mustafa Transcribed by Davey David PA-C. Dictated By: YONY MUSTAFA Transcribed By: YONY MUSTAFA Transcribed On: 01/21/2024 8:29 AM Electronically signed by: YONY MUSTAFA 01/21/2024 Thank you for referring NIKI TRIPLETT to [facility]. Legally authenticated by KAR Devries MD 2024-01-21 08:29:00 ORDER 200: FOREARM 2V LT ( INC: [id number]) ORDER DATE: January 21, 2024 3:19:00 AM [facility] PERFORMING LAB: [address] [id number] Final Result Date: January 21, 2024 12:28:[address] [place] [address] Name: NIKI TRIPLETT Exam Date: 01/20/2024 : 1970 Age 53 years Gender: F Physician: LUCHO FREEMAN Facility: [facility] Facility HSV: Outpatient Exam: FOREARM 2V LT LEFT FOREARM HISTORY: Arm pain FINDINGS: Two views show no evidence of an acute, displaced fracture or dislocation of the visualized bony architecture. There is soft tissue swelling. The joint spaces appear normal. IMPRESSION: No acute bony abnormality Films reviewed , interpreted and dictated by Dr. Jorge Luis Mustafa Transcribed by Davey David PA-C. Dictated By: YNOY MUSTAFA Transcribed By: YONY MUSTAFA Transcribed On: 01/21/2024 8:28 AM Electronically signed by: YONY MUSTAFA 01/21/2024 Thank you for referring NIKI TRIPLETT to [facility]. Legally authenticated by KAR Devries MD 2024-01-21 08:28:33 PATHOLOGY NARRATIVE RESULTS Information is not available MICROBIOLOGY RESULTS No Micro Labs/Results Exist for Patient BLOOD ADMIN RESULTS Information is not available MEDICATIONS HOME MEDICATIONS Status RXNORM [facility] Medication Dose Route Frequency Dates Comments Reported By Updated By Active [id number] 67017 64463 9 Basaglar KwikPen U-100 Insulin 100 unit/mL (3 mL) Insulin Pen 10.0 UNT SUBCUT ANEOUS DAILY Last Dose: [id number] on January 21, 2024 3:09:06 AM [facility] Active 251427 84462 45114 1 benzonatate 100 mg capsule 1.0 CAP BY MOUTH DAILY Last Dose: [id number] on January 21, 2024 3:09:06 AM [facility] Active 592283 25928 25005 0 carvedilol 25 mg tablet 1.0 TAB BY MOUTH BID Last Dose: [id number] on January 21, 2024 3:09:07 AM [facility] Active FreeT extMe d dilaudid 0.5mg q 3hrs per internal pain pump ' 0.0 Q3H Last Dose: [id number] on January 21, 2024 3:09:07 AM [facility] Active FreeT extMe d duloxetine 60 mg Capsule, Delayed Release Sprinkle 1.0 CAP BY MOUTH DAILY Last Dose: [id number] on January 21, 2024 3:09:07 AM [facility] Active 593402 14267 03477 7 fenofibrate 54 mg tablet 1.0 TAB BY MOUTH DAILY Last Dose: [id number] on January 21, 2024 3:09:07 AM [facility] Active 883819 28202 57955 1 furosemide 80 mg tablet 1.0 TAB BY MOUTH BID Last Dose: [id number] on January 21, 2024 3:09:07 AM [facility] Active 732031 10607 58896 1 gabapentin (NEURONTIN) 400.0 MG BY MOUTH TID Last Dose: [id number] on January 21, 2024 3:09:08 AM [facility] Active 465835 68122 60084 1 Humulin R Regular U-100 Insuln 100 unit/mL solution 0.0 Last Dose: sliding scale [id number] on January 21, 2024 3:09:08 AM [facility] Active 447502 49116 71042 1 isosorbide mononitrate 30 mg Tablet, Extended Release 24 hr 1.0 TAB BY MOUTH DAILY Last Dose: [id number] on January 21, 2024 3:09:08 AM [facility] Active 145225 69644 94440 9 losartan 100 mg tablet 1.0 TAB BY MOUTH DAILY Last Dose: [id number] on January 21, 2024 3:09:08 AM [facility] Active 881287 80945 55980 1 Novolin 70/30 U-100 Insulin 100 unit/mL (70-30) suspension 0.0 SUBCUT ANEOUS BID Last Dose: [id number] on January 21, 2024 3:09:08 AM [facility] Active 596296 82180 60374 0 ropinirole 3 mg tablet 1.0 TAB BY MOUTH BEDTIME Last Dose: [id number] on January 21, 2024 3:09:09 AM [facility] Active 614366 25640 44583 0 simvastatin 80 mg tablet 1.0 TAB BY MOUTH DAILY Last Dose: [id number] on January 21, 2024 3:09:09 AM [facility] Active 997826 35942 64381 0 Synthroid 88 mcg tablet 1.0 TAB BY MOUTH DAILY Last Dose: [id number] on January 21, 2024 3:09:09 AM [facility] Active 624701 30412 59287 1 tizanidine 4 mg capsule 1.0 CAP BY MOUTH BID Last Dose: [id number] on January 21, 2024 3:09:09 AM [facility] Active 208921 77375 11136 3 trazodone 50 mg tablet 50.0 MG BY MOUTH BEDTIME Last Dose: [id number] on January 21, 2024 3:09:09 AM [facility] DISCHARGE MEDICATIONS Status RXNORM [facility] Medication Dose Route Frequency Dates Comments Physician Updated By No Discharge Medication Info rmation Available INPATIENT MEDICATIONS Status RXNORM [facility] Medication Dose Route Frequency Rat e Quantity Dates Comments Physician Updated By Zuri [facility] [id number] 4823 2218 120 traMADol (ULTRAM) 50 MG TABS 50.0 MG BY MOUTH ONE TIME ONLY Start: January 21, 2024 3:42:0 0 AM [facility] End: January 21, 2024 3:42:0 0 AM UTC PETE Salas MD INTERFAC ED on January 21, 2024 3:42:00 AM UTC SOCIAL HISTORY SOCIAL HISTORY SNOMED-CT Social History Element Description Effective Dates Offered Cessation Comment UpdatedBy [id number] Historical Tobacco smoking status Current Every Day Smoker Refused [id number] on December 31, 2023 1:18:46 PM UTC 2121822 Historical Tobacco smoking status Former Smoker End: February 09, 2016 4:00:00 AM UTC Not Applicable [id number] on February 08, 2018 6:30:33 AM UTC [id number] Historical Tobacco smoking status Never Smoked Not Applicable [id number] on November 03, 2016 9:23:18 PM UTC [...] for each vital sign as of January 22, 2024 7:18:33 PM [place] Loinc Code Vital Sign Activity Date Result Updated By 8310-5 Body temperature January 21, 2024 2:56:51 AM UTC 97.1 [degF] [id number] on January 22, 2024 3:52:[place] [address]-2 Body weight Measured January 21 3:52:51 AM UTC 285.763 kg (630.0 lb) [id number] on January 22, 2024 3:52:51 AM UTC 8462-4 Diastolic blood pressure January 21, 2024 3:32:58 AM UTC 77.0 mm[Hg] [id number] on January 22, 2024 3:52:51 AM UTC 8867-4 Heart rate January 21, 2024 2:56:51 AM UTC 91 /min [id number] on January 22, 2024 3:52:[place] [address]-7 Oxygen saturation in Arterial blood by Pulse oximetry January 21, 2024 2:56:51 AM UTC 97.0 % [id number] on January 22, 2024 3:52:50 AM UT 9279-1 Respiratory rate January 21, 2024 2:56:51 AM UT 20 /min [id number] on January 22, 2024 3:52:50 AM [facility] 8480-6 Systolic blood pressure January 21, 2024 3:32:58 AM UTC 180.0 mm[Hg] [id number] on January 22, 2024 3:52:51 AM [facility] PEDIATRIC GROWTH CHART - [...] PAIN Admission January 21, 2024 2:46:[address] [address] Discharge January 21, 2024 3:52:00 AM [facility] DI SCHARGED TO HOME OR SELF CARE ENCOUNTER DIAGNOSES Notes information is not gloria ilable. Code System Diagnosis Onset Date Diagnosis information is not available. ABSTRACT DIAGNOSES Code System Diagnosis Updated By M79.642 ICD10 PAIN IN LEFT HAND [id number] on January 22, 2024 7:18:15 PM [facility] G56.02 ICD10 CARPAL TUNNEL SY NDROME, LEFT UPPER LIMB [id number] on January 22, 2024 7:18:15 PM [facility] I50.9 ICD10 HEART FAILURE, UNSPECIFIED O [id number] on January 22, 2024 7:18:15 PM [facility] E11.9 ICD10 TYPE 2 DIABETES MELLITUS WITHOUT COMPLICATIONS [id number] on January 22, 2024 7:18:15 PM [facility] J44.9 ICD10 CHRONIC OBSTRUCT DIANA PULMONARY DISEASE, UNSPECIFIED [id number] on January 22, 2024 7:18:15 PM [facility] G89.29 ICD10 OTHER CHRONIC PAIN [id number] o n January 22, 2024 7:18:15 PM [facility] Z79.4 ICD10 SENIOR CARE (CURRENT) USE OF I NSULIN [id number] on January 22, 2024 7:18:15 PM [facility] Z79.899 ICD10 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) DR MIRA LAWRENCE [id number] on January 22, 2024 7:18:15 PM [place] F17.210 ICD10 NICOTINE DEPENDE NCE, CIGARETTES, UNCOMPLICATED [id number] on January 22, 2024 7:18:15 PM UTC CARE TEAM Care Complex Care Nurse Practitioner Role LUCHO FREEMAN Admitting LUCHO FREEMAN Referring YUSUF KEYES Primary Care LUCHO FREEMAN Primary Attending CARE TEAM CARE budget counselor Role on Team Status Start Date End Date Update d By PETE Salas MD Referring normal January 21, 2024 3:08:35 AM UT January 21, 2024 3:52:00 AM UT [id number] on January 21, 2024 3:08:35 AM [place] PETE Salas MD Attending normal January 21, 2024 3:08:35 AM UTC January 21, 2024 3:52:00 AM UT [id number] on January 21, 2024 3:08:35 AM [facility] PETE Salas MD Admitting normal January 21, 2024 3:08:35 AM UTC January 21, 2024 3:52:00 AM [place] [id number] on January 21, 2024 3:08:35 AM [facility] STEPHY DOYLE APRN PCP normal January 21, 2024 2:46:57 AM UTC January 21, 2024 3:52:00 AM [place] [id number] on January 21, 2024 3:08:35 AM [facility]
--- OUTSIDE RECORDS SUMMARY | 2024-07-15 11:16 | XMS_ITS | Continuity of Care Document ---
Author Organization [facility] Phone Care Team Providers Care Anesthesiologist Assistant Name Role Phone YUSUF KEYES Primary Care LUCHO FREEMAN Admitting LUCHO FREEMAN Unavailable LUCHO FREEMAN Primary Attending ALLERGIES AND ADVERSE REACTIONS ALLERGIES AND ADVERSE REACTIONS Code System Allergy Substance Adverse Reaction Date Reaction (Severity) Comment Status Reported By Updated By 5640 RXNorm IBUPROFEN Rash (Moderate) active [id number] on March 03, 2024 7:47:53 PM UT 2193 RXNorm Rocephin Rash (Moderate) active [id number] on March 03, 2024 7:47:53 PM UT 3646 RXNorm Inapsine Shortness of breath/diffic ulty breathing active [id number] on March 03, 2024 7:47:53 PM UTC [id number] RXNorm AVELOX Rash (Moderate) active [id number] on March 03, 2024 7:47:53 PM UTC FAMILY HISTORY RELATION: Father Status: LIVING SNOMED-CT Diagnosis Age At Onset [id number] Diabetes mellitus [id number] Hypertensive disorder 36600366 Hypercholesterolemia 2142618 Arthritis RELATION: Mother Status: LIVING SNOMED-CT Diagnosis Age At Onset [id number] Diabetes mellitus 27322027 Hypertensive disorder 20827484 Hypercholesterolemia 0907622 Arthritis RESULTS Patient: UZIEL Cheng Date of : 1970 LABORATORY RESULTS ORDER 100: CBC AUTO W DIFF ( LOINC: 43069-2) ORDER DATE: March 03, 2024 8:00:00 PM UTC Specimen Source: Whole Blood Specimen Type: Whole blood s ample PERFORMING LAB: [address] [id number] Result Comment: Final Result Date: March 03, 2024 8:16:00 PM UT (TECH: [place]) LOINC TEST FLAG RESULT REFERENCE RANGE UPDA KRISSY BY 6690-2 Leukocytes [#/volume] in Blood by Automated count N 8.9 10^3/uL 4.5 10^3/uL - 11.5 10^3/uL March 03, 2024 8:16:00 PM UTC (Zokem: [employer]) 789-8 Erythrocytes [#/volume] in Blood by Automated count N 5.07 10^6/uL 4.25 10^6/uL - 5.57 10^6/uL March 03, 2024 8:16:00 PM UTC (Zokem: [employer]) 718-7 Hemoglobin [Mass/volume] in Blood N 14.6 g/dL 12.0 g/dL - 15.7 g/dL March 03, 2024 8:16:00 PM UTC (TECH: [employer]) 91876-5 Hematocrit [Volume Fraction] of Blood N 44.7 % 36.0 % - 47.0 % March 03, 2024 8:16:00 PM UTC (Zokem: [employer]) 787-2 Erythrocyte mean corpuscular volume [Entitic volume] by Automated count N 88.2 fl 80 fl - 95 fl March 03, 2024 8:16:00 PM UTC (TECH: [employer]) 05272-1 Erythrocyte mean corpuscular hemoglobin [Entitic mass] in Blood from Fetus by Automated count N 28.8 pg 27.0 pg - 34.0 pg March 03, 2024 8:16:00 PM UTC (TECH: [employer]) 27497-6 Erythrocyte mean corpuscular hemoglobin concentration [Mass/volume] in Blood from Fetus by Automated count N 32.7 g/dL 32.0 g/dL - 36.0 g/dL March 03, 2024 8:16:00 PM UTC (TECH: [employer]) 05438-2 Platelets [#/volume] in Blood N 235 10^3/uL 150 10^3/uL - 450 10^3/uL March 03, 2024 8:16:00 PM UTC (Zokem: [employer]) 96017-5 Erythrocyte distribution width [Ratio] N 14.4 % 12.3 % - 15.1 % March 03, 2024 8:16:00 PM UTC (TECH: [employer]) 09816-9 Platelet mean volume [Entitic volume] in Blood by Automated count N 10.3 fl 7.4 fl - 10.4 fl March 03, 2024 8:16:00 PM UTC (TECH: [employer]) 34987-5 Granulocytes/100 leukocytes in Blood by Automated count [...] March 03, 2024 8:16:00 PM UTC (TECH: [employer]) 59312-9 Immature granulocytes [#/volume] in Blood N 0.2 % 0.0 % - 0.8 % March 03, 2024 8:16:00 PM UTC (TECH: [employer]) 79605-8 Granulocytes [#/volume] in Blood by Automated count [...] March 03, 2024 8:16:00 PM UT (TECH: [employer]) 42792-4 Immature granulocytes [#/volume] in Blood N 0.02 10^3/uL March 03, 2024 8:16:00 PM UT (TECH: [employer]) 91351-6 Manual differential performed [Presence] in Blood N NO March 03, 2024 8:16:00 PM UT (TECH: [employer]) ORDER 200: COMP METABOLIC PA MARLEY (LOINC: 13846-0) ORDER DATE: March 03, 2024 8:00:00 PM UT Specimen Source: Plasma Specimen Type: Plasma specim en PERFORMING LAB: [address] [id number] Result Comment: Final Result Date: March 03, 2024 8:27:00 PM UT (TECH: [employer]) LOINC TEST FLAG RESULT REFERENCE RANGE UPDA KRISSY BY 2951-2 Sodium [Moles/volume ] in Serum or Plasma L 135 mmol/L 136 mmol/L - 145 mmol/L March 03, 2024 8:27:00 PM UT (TECH: [employer]) 2823-3 Potassium [Moles/volume] in Serum or Plasma N 4.4 mmol/L 3.5 mmol/L - 5.1 mmol/L March 03, 2024 8:27:00 PM UT (TECH: [employer]) 2075-0 Chloride [Moles/volu me] in Serum or Plasma N 100 mmol/L 98 mmol/L - 107 mmol/L March 03, 2024 8:27:00 PM UT (TECH: [employer]) 8-9 Carbon dioxide, tota l [Moles/volume] in Serum or Plasma N 29 mmol/L 21 mmol/L - 32 mmol/L March 03, 2024 8:27:00 PM UT (TECH: [employer]) 56937-1 Anion gap 3 in Serum or Plasma N 6.0 March 03, 2024 8:27:00 PM UT (TECH: [employer]) 2345-7 Glucose [Mass/volume ] in Serum or Plasma H 298 mg/dL 70 mg/dL - 110 mg/dL March 03, 2024 8:27:00 PM UTC (TECH: [employer]) 3094-0 Urea nitrogen [Mass/volume] in Serum or Plasma N 15 mg/dL 7 mg/dL - 18 mg/dL March 03, 2024 8:27:00 PM [facility] (TECH: [employer]) 2160-0 Creatinine [Mass/volume] in Serum or Plasma N 0.9 mg/dL 0.6 mg/dL - 1.0 mg/dL March 03, 2024 8:27:00 PM [facility] (TECH: [employer]) 3097-3 Urea nitrogen/Creatinine [Mass Ratio] in Serum or Plasma N 16.7 Ratio 9 Ratio - 21 Ratio March 03, 2024 8:27:00 PM [facility] (TECH: [employer]) 19343-5 Glomerular filtratio n rate/1.73 sq M.predicted by Creatinine-based formula (MDRD) N 69 mL/min >60 March 03, 2024 8:27:00 PM [facility] (TECH: [employer]) 2885-2 Protein [Mass/volume ] in Serum or Plasma N 8.0 g/dL 6.4 g/dL - 8.2 g/dL March 03, 2024 8:27:00 PM [facility] (Zokem: [employer]) 1751-7 Albumin [Mass/volume ] in Serum or Plasma L 2.6 g/dL 3.4 g/dL - 5.0 g/dL March 03, 2024 8:27:00 PM [facility] (TECH: [employer]) 10614-7 Calcium [Mass/volume ] in Serum or Plasma N 9.1 mg/dL 8.5 mg/dL - 10.1 mg/dL March 03, 2024 8:27:00 PM [facility] ([employer]ok[employer]: [employer]) 73854-8 Calcium [Mass/volume ] corrected for total protein in Serum or Plasma H 10.2 mg/dL 8.5 mg/dL - 10.1 mg/dL March 03, 2024 8:27:00 PM [facility] (TECH: [employer]) 1975-2 Bilirubin.total [Mass/volume] in Serum or Plasma N 0.4 mg/dL 0.4 mg/dL - 1.5 mg/dL March 03, 2024 8:27:00 PM [facility] (TECH: [employer]) 1920-8 Aspartate aminotransferase [Enzymatic activity/volume] in Serum or Plasma H 47 U/L 15 U/L - 37 U/L March 03, 2024 8:27:00 PM [facility] (TECH: [employer]) 1742-6 Alanine aminotransferase [Enzymatic activity/volume] in Serum or Plasma N 49 U/L 12 U/L - 78 U/L March 03, 2024 8:27:00 PM UTC (TECH: [employer]SM) 6768-6 Alkaline phosphatase [Enzymatic activity/volume] in Serum or Plasma H 212 U/L 50 U/L - 120 U/L March 03, 2024 8:27:00 PM UT (TECH: KSM) ORDER 500: LACTIC ACID (LOIN C: 28311-5) ORDER DATE: March 03, 2024 8:00:00 PM UTC Specimen Source: Serum/Plasm a Specimen Type: Acellular blo od (serum or plasma) specimen PERFORMING LAB: [place] [id number] Result Comment: Final Result Date: March 03, 2024 8:38:00 PM UT (TECH: KSM) LOINC TEST FLAG [place] [address]-6 Lactate [Mass/volume] in Serum or Plasma N 1.0 mmole/L 0.4 mmole/L - 2.0 mmole/L March 03, 2024 8:38:00 PM UT (TECH: KSM) ORDER 600: TROPONIN QUANT (L OINC: 92400-7) ORDER DATE: March 03, 2024 8:00:00 PM UTC Specimen Source: Plasma Specimen Type: Plasma specim en PERFORMING LAB: [address] [id number] Result Comment: Final Result Date: March 03, 2024 8:27:00 PM UT (TECH: [employer]) LOINC TEST FLAG [place] [address]-8 Troponin I.cardiac panel - Serum or Plasma by High sensitivity method N 22 ng/L 0 ng/L - 51 ng/L March 03, 2024 8:27:00 PM UT (TECH: KSM) ORDER 700: B-TYPE NATRIURETI C PEPTIDE BNP (LOINC: 84166-5) ORDER DATE: March 03, 2024 8:00:00 PM UTC Specimen Source: Whole Blood Specimen Type: Whole blood s ample PERFORMING LAB: [address] [id number] Result Comment: Final Result Date: March 03, 2024 9:15:00 PM UT (TECH: [employer]) LOINC TEST FLAG [place]ULT [place] [address]-1 Natriuretic peptide B [Mass/volume] in Serum or Plasma H 731.0 pg/mL 0.0 pg/mL - 100 pg/mL March 03, 2024 9:15:00 PM UTC (TECH: KSM) ORDER 900: GRAM STAIN (LOINC : 664-3) ORDER DATE: March 03, 2024 8:00:00 PM UTC Specimen Source: Culture Specimen Type: Culture - gen eral PERFORMING LAB: [address] [id number] Result Comment: March 03, 2024 8:44:00 PM UTC Sub-optimal specimen. Hold culture for 24 hrs. Final Result Date: March 03, 2024 8:44:00 PM UTC (TECH: KSM) LOINC TEST FLAG [place] [address]-1 Specimen source subject [Type] N SPUTUM March 03, 2024 8:44:00 PM UTC (TECH: KSM) 664-3 Microscopic observation [Identifier] in Unspecified specimen by Gram stain N GRAM POS COCCI March 03, 2024 8:44:00 PM UTC (TECH: KSM) 664-3 Microscopic observation [Identifier] in Unspecified specimen by Gram stain N RARE March 03, 2024 8:44:00 PM UTC (TECH: KSM) 664-3 Microscopic observation [Identifier] in Unspecified specimen by Gram stain N PAIRS March 03, 2024 8:44:00 PM UTC (TECH: KSM) 664-3 Microscopic observation [Identifier] in Unspecified specimen by Gram stain N GRAM POS SHERRI March 03, 2024 8:44:00 PM UTC (TECH: KSM) 664-3 Microscopic observation [Identifier] in Unspecified specimen by Gram stain N RARE March 03, 2024 8:44:00 PM UTC (TECH: KSM) 664-3 Microscopic observation [Identifier] in Unspecified specimen by Gram stain N SINGLY March 03, 2024 8:44:00 PM UTC (TECH: KSM) 47410-2 Leukocytes [Presence] in Unspecified specimen by Gram stain N RARE March 03, 2024 8:44:00 PM UTC (TECH: KSM) 35543-8 Epithelial cells [Presence] in Unspecified specimen by Gram stain N -March 03, 2024 8:44:00 PM UTC (TECH: [employer]SM) 40710-5 Yeast [Presence] in Unspecified specimen by Wet preparation N NONE SEEN March 03, 2024 8:44:00 PM UTC (TECH: KSM) 648-6 Microscopic observation [Identifier] in Sputum by Gram stain N SUB-OPTIMAL March 03, 2024 8:44:00 PM UTC (TECH: KSM) ORDER 1200: ARTERIAL BLOOD G (LOINC: 30512-4) ORDER DATE: March 03, 2024 9:07:00 PM UTC Specimen Source: Whole Blood Specimen Type: Whole blood s ample PERFORMING LAB: [address] [id number] Result Comment: Final Result Date: May 13, 2024 5:22:00 PM UTC (TECH: TS) LOINC TEST FLAG [place] [address]-3 Specimen source subj ect [Type] N ARTERIAL March 03, 2024 9:46:00 PM UTC (TECH: TS) 17420-[address] artery --pre arterial puncture N NO March 03, 2024 9:46:00 PM UTC (TECH: TS) 94175-9 Body site N RIGHT BRACHIAL March 03, 2024 9:46:00 PM UTC (TECH: TS) 2744-1 pH of Arterial blood L 7.330 7.35 - 7. 45 March 03, 2024 9:46:00 PM UTC (TECH: TS) 2019-8 Carbon dioxide [Part ial pressure] in Arterial blood H 57 mmHg 35 mmHg - 45 mmHg March 03, 2024 9:46:00 PM UTC (TECH: TS) 2703-7 Oxygen [Partial pressure] in Arterial blood LL 58.0 mmHg 80 mmHg - 100 mmHg March 03, 2024 9:46:00 PM UTC (TECH: TS) 23444-2 Bicarbonate [Moles/volume] standard in Arterial blood H 27.0 mEq/L 21 mEq/L - 25 mEq/L March 03, 2024 9:46:00 PM UTC (TECH: TS) 22563-4 Base excess standard in Arterial blood by calculation N 2.9 March 03, 2024 9:46:00 PM UTC (TECH: TS) 4424-4 Fractional oxyhemoglobin in Arterial blood N 88 % March 03, 2024 9:46:00 PM UT (TECH: TS) 3150-0 Inhaled oxygen concentration N 36 % May 13, 2024 5:22:00 PM UT (TECH: TS) 3151-8 Inhaled oxygen flow rate N 4.0 L/MIN March 03, 2024 9:46:00 PM UT (TECH: TS) 98917-8 Oxygen gas flow Oxyg en delivery system N NASAL CANNULA March 03, 2024 9:46:00 PM UT (TECH: TS) 18011-8 Room temperature N 37.0 Casa 2023 9:46:00 PM [facility] (TECH: TS) LABORATORY NARRATIVE RESULTS Information is not available RADIOLOGY RESULTS ORDER 1000: CT CHEST PE PROT OCOL (LOINC: 92174-0) ORDER DATE: March 03, 2024 8:00:00 PM [facility] PERFORMING LAB: [address] [id number] Final Result Date: March 03 9:54:[address] [place] [address] Name: NIKI TRIPLETT Exam Date: 03/03/2024 : 1970 Age 53 years Gender: F Physician: Facility: [facility] Facility HSV: Outpatient Exam: CT CHEST PE [...] you for referring NIKI TRIPLETT to [facility]. Legally authenticated by JUDD Nunez MD 2024-03-03 17:54:44 PATHOLOGY NARRATIVE RESULTS Information is not available MICROBIOLOGY RESULTS No Micro Labs/Results Exist for Patient BLOOD ADMIN RESULTS Information is not available MEDICATIONS HOME MEDICATIONS Status RXNORM NDC Medication Dose Route Frequency Dates Comments Reported By Updated By Drug Treatment Unknown DISCHARGE MEDICATIONS Status RXNORM NDC Medication Dose Route Frequency Dates Comments Physician Updated By No Discharge Medication Info rmation Available INPATIENT MEDICATIONS Status RXNORM NDC Medication Dose Route Frequency Rat e Quantity Dates Comments Physician Updated By Discont inued [id number] 1936 1032 608 nitroglycer in oint (NITRO-BID) 2 % OINT 1.0 IN ENTERA L ONE TIME ONLY Start: March 03, 2024 8:06:0 0 PM UTC End: March 03, 2024 8:06:0 0 PM UTC PETE Salas MD INTERFAC ED on March 03, 2024 8:05:00 PM UT Discont inued [id number] 0040 9610 204 furosemide 40mg vial (LASIX) 10 MG/ML SOLN 40.0 MG INTRAV ENOUS ONE TIME ONLY Start: March 03, 2024 8:06:0 0 PM UTC End: March 03, 2024 8:06:0 0 PM UTC PETE Salas MD INTERFAC ED on March 03, 2024 8:05:00 PM UTC Discont inued [id number] 4973 4107 803 METHYLPREDN ISOLONE SODIUM SUCC 125 MG SOLR 125.0 MG INTRAV ENOUS ONE TIME ONLY Start: March 03, 2024 8:06:0 0 PM UTC End: March 03, 2024 8:06:0 0 PM UTC PETE Salas MD INTERFAC ED on March 03, 2024 8:05:00 PM UTC Discont inued 0181493 0439 7020 101 DUONEB 0.5-2.5 MG/3 ML SOLN 1.0 NEB INHALE D ONE TIME ONLY Start: March 03, 2024 8:14:0 0 PM UTC End: March 03, 2024 8:14:0 0 PM UTC PETE Salas MD INTERFAC ED on March 03, 2024 8:12:00 PM UTC Discont inued [id number] 2304 3039 810 azithromyci n (ZITHROMAX) 500 MG SOLR 500.0 MG INTRAV ENOUS ONE TIME ONLY Start: March 03, 2024 8:28:0 0 PM UTC End: March 03, 2024 8:28:0 0 PM UTC PETE Salas MD INTERFAC ED on March 03, 2024 8:27:00 PM UTC Discont inued 6052626 0621 7020 101 DUONEB 0.5-2.5 MG/3 ML SOLN 1.0 NEB INHALE D ONE TIME ONLY Start: March 03, 2024 9:14:0 0 PM UTC End: March 03, 2024 9:14:0 0 PM UTC PETE Salas MD INTERFAC ED on March 03, 2024 9:12:00 PM UTC SOCIAL HISTORY SOCIAL HISTORY SNOMED-CT Social History Element Description Effective Dates Offered Cessation Comment UpdatedBy [id number] Historical Tobacco smoking status Current Every Day Smoker Refused [id number] on December 31, 2023 1:18:46 PM UT [id number] Historical Tobacco smoking status Former Smoker End: February 09, 2016 4:00:00 AM UTC Not Applicable [id number] on February 08, 2018 6:30:33 AM UT [id number] Historical Tobacco smoking status Never Smoked Not Applicable [id number] on November 03, 2016 9:23:18 PM UT [...] value for each vital sign as of May 14, 2024 2:07:17 AM UT Loinc Code Vital Sign Activity Date Result Updated By 8310-5 Body temperature March 03, 2024 7: 45:00 PM UTC 98.8 [degF] [id number] on March 03, 2024 8:12:59 PM UTC 8462-4 Diastolic blood pressure March 03, 2024 9:45:00 PM UTC 91.0 mm[Hg] [id number] on March 03, 2024 10:01:41 PM UTC 8867-4 Heart rate March 03, 2024 9:5 7:00 PM UTC 81 /min FWN0352 on March 03, 2024 10:01:[place] [address]-7 Oxygen saturation in Arterial blood by Pulse oximetry March 03, 2024 9:57:00 PM UTC 95.0 % [id number] on March 03, 2024 10:01:42 PM UT 9279-1 Respiratory rate March 03, 2024 9: 04:00 PM UTC 18 /min [id number] on March 03, 2024 9:08:08 PM UTC 8480-6 Systolic blood pressure March 03, 2024 9:45:00 PM UTC 162.0 mm[Hg] VWE8463 on March 03, 2024 10:01:41 PM UT PEDIATRIC GROWTH CHART - VITAL SIGNS [...] BREATH Admission March 03, 2024 7:42:[address] [id number] Discharge March 03, 2024 10:34:00 PM UT LEF T AGAINST ADVICE OR DISCONTINUED ENCOUNTER DIAGNOSES Notes information is not gloria ilable. Code System Diagnosis Onset Date Diagnosis information is not available. ABSTRACT DIAGNOSES Code System Diagnosis Updated By R06.02 ICD10 SHORTNESS OF BREATH [id number] on March 07, 2024 6:33:51 AM UTC R06.00 ICD10 DYSPNEA, UNSPECIFIED QEW5859 on March 07, 2024 6:33:51 AM UTC R06.2 ICD10 WHEEZING XDB7229 on March 07, 2024 6:33:51 AM UTC Z53.29 ICD10 PROCEDURE AND TR EATMENT NOT CARRIED OUT BECAUSE OF PATIENT'S DECISION FOR OTHER REASONS [id number] on March 07, 2024 6:33:51 AM UTC J44.0 ICD10 CHRONIC OBSTRUCT DIANA PULMONARY DISEASE WITH (ACUTE) LOWER RESPIRATORY INFECTION YIQ3231 on March 07, 2024 6:33:51 AM UTC I11.0 ICD10 HYPERTENSIVE HEA RT DISEASE WITH HEART FAILURE [id number] on March 07, 2024 6:33:51 AM UTC 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 GUX5785 on March 07, 2024 6:33:51 AM UT E66.01 ICD10 MORBID (SEVERE) OBESITY DUE TO EXCESS CALORIES HYY5074 on March 07, 2024 6:33:51 AM UTC F17.210 ICD10 NICOTINE DEPENDE NCE, CIGARETTES, UNCOMPLICATED [id number] on March 07, 2024 6:33:51 AM UTC Z68.42 ICD10 BODY MASS INDEX [BMI] 45.0-4 9.9, ADULT [id number] on March 07, 2024 6:33:51 AM UT Z88.1 ICD10 ALLERGY STATUS T O OTHER ANTIBIOTIC AGENTS [id number] on March 07, 2024 6:33:51 AM UT Z88.6 ICD10 ALLERGY STATUS TO ANALGESIC AGENT VCF3220 on March 07, 2024 6:33:51 AM UT Z88.8 ICD10 ALLERGY STATUS T O OTHER DRUGS, MEDICAMENTS AND BIOLOGICAL SUBSTANCES [id number] on March 07, 2024 6:33:51 AM UT CARE TEAM Care Anesthesiologist Assistant Role YUSUF KEYES Primary Care LUCHO FREEMAN Admitting LUCHO FREEMAN Referring LUCHO FREEMAN Primary Attending CARE TEAM CARE contact worker lithography Role on Team Status Start Date End Date Update d By PETE Salas MD Referring normal March 03 8:08:07 PM UT March 03, 2024 10:34:00 PM UTC [id number] on March 03, 2024 8:08:07 PM UTC PETE Salas MD Attending normal March 03 8:08:07 PM UTC March 03, 2024 10:34:00 PM UTC [id number] on March 03, 2024 8:08:07 PM UTC PETE Salas MD Admitting normal March 03 8:08:07 PM UTC March 03, 2024 10:34:00 PM UTC [id number] on March 03, 2024 8:08:07 PM UTC STEPHY DOYLE PAIL TESTER PCP normal March 03, 2024 7:43:04 PM UTC March 03, 2024 10:34:00 PM UTC [id number] on March 03, 2024 8:08:07 PM UTC
--- OUTSIDE RECORDS SUMMARY | 2024-07-15 11:16 | XMS_ITS | Continuity of Care Document ---
Author Organization [facility] Phone Care Team Providers Care Dry Plasterer Name Role Phone YUSUF KEYES Unavailable YUSUF KEYES Primary Care YUSUF KEYES Admitting YUSUF KEYES Primary Attending ALLERGIES AND ADVERSE REACTIONS ALLERGIES AND ADVERSE REACTIONS Code System Allergy Substance Adverse Reaction Date Reaction (Severity) Comment Status Reported By Updated By 5340 RXNorm IBUPROFEN Rash (Moderate) active [id number] on June 17, 2024 10:36:21 PM UT 2193 RXNorm Rocephin Rash (Moderate) active RUQ8996 on June 17, 2024 10:36:21 PM UT 3648 RXNorm Inapsine Shortness of breath/diffi culty breathing active GBA1939 on June 17, 2024 10:36:21 PM UT 387303 RXNorm AVELOX Rash (Moderate) active FNI4072 on June 17, 2024 10:36:21 PM [facility] FAMILY HISTORY RELATION: Father Status: LIVING SNOMED-CT Diagnosis Age At Onset [id number] Diabetes mellitus 14324607 Hypertensive disorder 61456234 Hypercholesterolemia 3370253 Arthritis RELATION: Mother Status: LIVING SNOMED-CT Diagnosis Age At Onset [id number] Diabetes mellitus 55148439 Hypertensive disorder 82361471 Hypercholesterolemia 9010153 Arthritis RESULTS Patient: UZIEL Cheng Date of : 1970 LABORATORY RESULTS Information is not available LABORATORY NARRATIVE RESULTS Information is not available RADIOLOGY RESULTS ORDER 100: US ABD (LOINC: 24 558-9) ORDER DATE: June 20, 2024 2:17:00 PM [facility] PERFORMING LAB: [address] [id number] Final Result Date: June 20, 2024 2:45:[address] [place] [address] Name: NIKI TRIPLETT Exam Date: 06/20/2024 : 1970 Age 54 years Gender: F Physician: YUSUF KEYES Facility: [facility] Facility HSV: Outpatient Exam: US ABD PROCEDURE: US ABDOMEN. HISTORY: Patient is a 54 year old Female with abdominal pain. COMPARISON: None available. TECHNIQUE: Two-dimensional grayscale ultrasound of the abdomen was performed. Color Doppler imaging was also performed. FINDINGS: The pancreas is suboptimally visualized due to overlying bowel gas. The visualized segments appear unremarkable. The liver measures 18.2 cm in length and demonstrates increased echotexture without intrahepatic biliary dilatation. No masses are visualized. The main portal vein demonstrates normal hepatopedal flow. The gallbladder demonstrates echogenic sludge without pericholecystic fluid or wall thickening. There are two gallstones, largest measuring 0.8 cm. The common bile duct is prominent measuring 0.9 cm. The right kidney measures 10.8 x 7.4 x 6.9 cm. Renal cortical echotexture is mildly increased. There is no hydronephrosis. There are no stones. There are no cysts. The left kidney measures 9.4 x 5.0 x 4.3 cm. Renal cortical echotexture is mildly increased. There is no hydronephrosis. There are no stones. There are no cysts. The spleen measures 10.3 cm in length and demonstrates normal echotexture. There is no evidence of aneurysm within the visualized segments of the abdominal aorta. IVC is unremarkable. IMPRESSION: 1. Increased hepatic echotexture, most commonly seen with steatosis. No mass. Correlation with elevated liver enzymes is recommended. 2. Echogenic gallbladder sludge with two gallstones, largest measuring 0.8 cm. No wall thickening or pericholecystic fluid. Prominent common bile duct measuring 0.9 cm. 3. Mildly increased cortical echotexture of the bilateral kidneys, suggestive of medical renal disease. Thank you for allowing us to assist in the care of this patient. Electronically signed by: Manfred Garcia MD 06/20/2024 11:04 AM EDT Dictated By: Manfred Garcia Transcribed By: Transcribed On: 06/20/2024 10:45 AM Electronically signed by: Manfred Garcia 06/20/2024 Thank you for referring NIKI TRIPLETT to [facility]. Legally authenticated by MATT CONNELLY MD 2024-06-20 10:45:38 PATHOLOGY NARRATIVE RESULTS Information is not available [...] Description Effective Dates Offered Cessation Comment UpdatedBy [id number] Historical Tobacco smoking status Current Every Day Smoker Refused [id number] on December 31, 2023 1:18:46 PM [facility] [id number] Historical Tobacco smoking status Former Smoker End: February 09, 2016 4:00:00 AM [facility] Not Applicable [id number] on February 08, 2018 6:30:33 AM [facility] [id number] Historical Tobacco smoking status Never Smoked Not Applicable [id number] on November 03, 2016 9:23:18 PM [facility] SOCIAL HISTORY - Gender Sex: Female SOCIAL [...] June 20, 2024 1:50:00 PM [place] C [address] [id number] Discharge June 20, 2024 1:50:00 PM UT C DISCHARGED TO HOME OR SELF CARE ENCOUNTER DIAGNOSES Notes information is not gloria ilable. Code System Diagnosis Onset Date Diagnosis information is not available. ABSTRACT DIAGNOSES Code System Diagnosis Updated By R10.9 ICD10 UNSPECIFIED ABDOMINAL PAIN I LC4347 on June 23, 2024 7:59:03 AM UTC K80.20 ICD10 CALCULUS OF GALL BLADDER WITHOUT CHOLECYSTITIS WITHOUT OBSTRUCTION [id number] on June 23, 2024 10:14:15 AM UTC K76.0 ICD10 FATTY (CHANGE OF ) LIVER, NOT ELSEWHERE CLASSIFIED [id number] on June 23, 2024 10:17:02 AM UTC R10.9 ICD10 UNSPECIFIED ABDOMINAL PAIN K [id number] on June 23, 2024 10:17:03 AM UTC CARE TEAM Care Dry Plasterer Role YUSUF KEYES Referring YUSUF KEYES Primary Care YUSUF KEYES Admitting YUSUF KEYES Primary Attending CARE TEAM CARE iuss acoustic analyst Role on Team Status Start Date End Date Update d By STONE YUSUF DOYLE APRN PCP normal June 18, 2024 3:20:27 PM UTC June 20, 2024 1:50:00 PM UTC [id number] on June 18, 2024 3:20:27 PM UTC STONE YUSUF DOYLE APRN Referring normal June 18, 2024 3:20:27 PM UTC June 20, 2024 1:50:00 PM UTC [id number] on June 18, 2024 3:20:27 PM UTC STONE YUSUF DOYLE APRN Attending normal June 18, 2024 3:20:27 PM UTC June 20, 2024 1:50:00 PM UTC [id number] on June 18, 2024 3:20:27 PM UTC STONE YUSUF DOYLE APRN Admitting normal June 18, 2024 3:20:27 PM UTC June 20, 2024 1:50:00 PM UTC [id number] on June 18, 2024 3:20:27 PM UTC
--- OUTSIDE RECORDS SUMMARY | 2024-07-15 11:16 | XMS_ITS | Continuity of Care Document ---
Author Organization [facility] Phone Care Team Providers Care Computer Help Desk Representative Name Role Phone NANCY KERN Primary Attending NANCY KERN Admitting NANCY KERN Unavailable YUSUF KEYES Primary Care ALLERGIES AND ADVERSE REACTIONS ALLERGIES AND ADVERSE REACTIONS Code System Allergy Substance Adverse Reaction Date Reaction (Severity) Comment Status Reported By Updated By 5640 RXNorm IBUPROFEN Rash (Moderate) active [id number] on December 30, 2023 4:02:53 AM UTC 2193 RXNorm Rocephin Rash (Moderate) active [id number] on December 30, 2023 4:02:53 AM UTC 3648 RXNorm Inapsine Shortness of breath/diffic ulty breathing active [id number] on December 30, 2023 4:02:53 AM UTC 575520 RXNorm AVELOX Rash (Moderate) active [id number] on December 30, 2023 4:02:53 AM UTC ASSESSMENTS Peripheral venous insufficiency ; Edema due to fluid overload ; FAMILY HISTORY RELATION: Father Status: LIVING SNOMED-CT Diagnosis Age At Onset [id number] Diabetes mellitus [id number] Hypertensive disorder [id number] Hypercholesterolemia [id number] Arthritis RELATION: Mother Status: LIVING SNOMED-CT Diagnosis Age At Onset [id number] Diabetes mellitus [id number] Hypertensive disorder [id number] Hypercholesterolemia [id number] Arthritis FUNCTIONAL STATUS Note Title Nurse Discharge Note Date Of Service December 31, 2023 8:40:1 0 PM UTC Created By [id number] on December 31, 2023 8:40:10 PM UTC Signed By [id number] on December 31, 2023 8:40:41 PM UTC FUNCTIONAL STATUS Section: Functional Status Comments: Description SNOMED_CT Value Comments No functional deficits identified [id number] true MENTAL STATUS Note Title Nurse Discharge Note Date Of Service December 31, 2023 8:40:1 0 PM UTC Created By [id number] on December 31, 2023 8:40:10 PM UTC Signed By [id number] on December 31, 2023 8:40:41 PM UTC MENTAL STATUS Section: Cognitive Status Comments: Description SNOMED_CT Value Comments Alert [id number] true Oriented x4 [id number] true PROBLEMS PATIENT PROBLEMS Code Description/Comments Category Status Upda krissy By [id number] Peripheral venous insufficiency acti ve [id number] on December 30, 2023 3:26:31 AM UTC [id number] Edema due to fluid overload active [id number] on December 30, 2023 3:27:17 AM UTC RESULTS Patient: UZIEL Cheng Date of : 1970 LABORATORY RESULTS ORDER 100: CBC AUTO W DIFF ( LOINC: 12338-5) ORDER DATE: December 30, 2023 1:45:00 AM UTC Specimen Source: Whole Blood Specimen Type: Whole blood s ample PERFORMING LAB: [address] [id number] Result Comment: Final Result Date: December 30, 2023 1:55:00 AM UTC (TECH: [employer]) LOINC TEST FLAG RESULT REFERENCE RANGE UPDA [...] 30, 2023 1:55:00 AM UTC (TECH: RJV) 03442-5 Hematocrit [Volume Fraction] of Blood N 40.3 % 36.0 % - 47.0 % December 29 1:55:00 AM UTC (TECH: RJV) 787-2 Erythrocyte mean corpuscular volume [Entitic volume] by Automated count N 85.0 fl 80 fl - 95 fl December 30, 2023 1:55:00 AM UTC (TECH: Shipu) 22072-0 Erythrocyte mean corpuscular hemoglobin [Entitic mass] in Blood from Fetus by Automated count N 28.7 pg 27.0 pg - 34.0 pg December 30, 2023 1:55:00 AM UTC (TECH: Shipu) 95601-3 Erythrocyte mean corpuscular hemoglobin concentration [Mass/volume] in Blood from Fetus by Automated count N 33.7 g/dL 32.0 g/dL - 36.0 g/dL December 30, 2023 1:55:00 AM UTC (TECH: Shipu) 09950-2 Platelets [#/volume] in Blood N 205 10^3/uL 150 10^3/uL - 450 10^3/uL December 30, 2023 1:55:00 AM UTC (TECH: Shipu) 22796-3 Erythrocyte distribution width [Ratio] N 13.1 % 12.3 % - 15.1 % December 30, 2023 1:55:00 AM UTC (TECH: Shipu) 41416-8 Platelet mean volume [Entitic volume] in Blood by Automated count N 10.1 fl 7.4 fl - 10.4 fl December 30, 2023 1:55:00 AM UTC (TECH: Shipu) 62139-4 Granulocytes/100 leukocytes in Blood by Automated count N 71.3 % 40 % - 75 % December 29 1:55:00 AM UTC (TECH: Shipu) 736-9 Lymphocytes/100 leukocytes in Blood by Automated count N 18.0 % 15 % - 57 % December 29 1:55:00 AM UTC (TECH: Shipu) 5905-5 Monocytes/100 leukocytes in Blood by Automated count N 7.1 % 4.0 % - 12.0 % December 29 1:55:00 AM UTC (TECH: Shipu) 713-8 Eosinophils/100 leukocytes in Blood by Automated count N 2.8 % 0.0 % - 4.0 % December 29 1:55:00 AM UTC (TECH: Shipu) 706-2 Basophils/100 leukocytes in Blood by Automated count N 0.2 % 0.0 % - 1.0 % December 29 1:55:00 AM UTC (TECH: Shipu) 54047-3 Immature granulocytes [#/volume] in Blood N 0.6 % 0.0 % - 0.8 % December 29 1:55:00 AM UTC (TECH: RJV) 17507-4 Granulocytes [#/volume] in Blood by Automated count N 7.78 10^3/uL December 29 1:55:00 AM UTC (TECH: RJV) 731-0 Lymphocytes [#/volume] in Blood by Automated count N 1.96 10^3/uL December 29 1:55:00 AM UTC (TECH: [employer]) 742-7 Monocytes [#/volume] in Blood by Automated count N 0.77 10^3/uL December 30, 2023 1:55:00 AM UTC (TECH: Shipu) 711-2 Eosinophils [#/volume] in Blood by Automated count N 0.30 10^3/uL December 29 1:55:00 AM UTC (TECH: [employer]) 704-7 Basophils [#/volume] in Blood by Automated count N 0.02 10^3/uL December 30, 2023 1:55:00 AM UTC (TECH: Shipu) 06295-5 Immature granulocytes [#/volume] in Blood N 0.07 10^3/uL December 29 1:55:00 AM UTC (TECH: Shipu) 90360-1 Manual differential performed [Presence] in Blood N NO December 30, 2023 1:55:00 AM UTC (TECH: [employer]) ORDER 200: COMP METABOLIC PA MARLEY (LOINC: 92521-6) ORDER DATE: December 30, 2023 1:45:00 AM UTC Specimen Source: Serum/Plasm a Specimen Type: Acellular blo od (serum or plasma) specimen PERFORMING LAB: [address] [id number] Result Comment: Final Result Date: December 30, 2023 2:08:00 AM UTC (TECH: Shipu) LOINC TEST FLAG RESULT REFERENCE RANGE UPDA KRISSY BY 2951-2 Sodium [Moles/volume ] in Serum or Plasma N 139 mmol/L 136 mmol/L - 145 mmol/L December 30, 2023 2:08:00 AM UTC (TECH: Shipu) 2823-3 Potassium [Moles/volume] in Serum or Plasma N 4.2 mmol/L 3.5 mmol/L - 5.1 mmol/L December 30, 2023 2:08:00 AM UTC (TECH: Shipu) 2075-0 Chloride [Moles/volu me] in Serum or Plasma N 101 mmol/L 98 mmol/L - 107 mmol/L December 30, 2023 2:08:00 AM UTC (TECH: Shipu) 8-9 Carbon dioxide, tota l [Moles/volume] in Serum or Plasma N 30 mmol/L 21 mmol/L - 32 mmol/L December 30, 2023 2:08:00 AM UTC (TECH: Shipu) 72079-8 Anion gap 3 in Serum or Plasma N 8.0 December 30, 2023 2:08:00 AM UT (TECH: Shipu) 2345-7 Glucose [Mass/volume ] in Serum or Plasma H 158 mg/dL 70 mg/dL - 110 mg/dL December 30, 2023 2:08:00 AM UT (TECH: Shipu) 3094-0 Urea nitrogen [Mass/volume] in Serum or Plasma H 24 mg/dL 7 mg/dL - 18 mg/dL December 30, 2023 2:08:00 AM UT (NoWait: Shipu) 2160-0 Creatinine [Mass/volume] in Serum or Plasma N 1.0 mg/dL 0.6 mg/dL - 1.0 mg/dL December 30, 2023 2:08:00 AM UT (TECH: Shipu) 3097-3 Urea nitrogen/Creatinine [Mass Ratio] in Serum or Plasma H 24.0 Ratio 9 Ratio - 21 Ratio December 30, 2023 2:08:00 AM UT (TECH: Shipu) 62881-9 Glomerular filtratio n rate/1.73 sq M.predicted by Creatinine-based formula (MDRD) N 61 mL/min >60 December 30, 2023 2:08:00 AM UT (TECH: Shipu) 2885-2 Protein [Mass/volume ] in Serum or Plasma N 7.6 g/dL 6.4 g/dL - 8.2 g/dL December 30, 2023 2:08:00 AM UT (TECH: Shipu) 1751-7 Albumin [Mass/volume ] in Serum or Plasma L 2.8 g/dL 3.4 g/dL - 5.0 g/dL December 30, 2023 2:08:00 AM UT (NoWait: Shipu) 90894-6 Calcium [Mass/volume ] in Serum or Plasma N 9.0 mg/dL 8.5 mg/dL - 10.1 mg/dL December 30, 2023 2:08:00 AM UT (NoWait: Shipu) 21660-1 Calcium [Mass/volume ] corrected for total protein in Serum or Plasma N 10.0 mg/dL 8.5 mg/dL - 10.1 mg/dL December 30, 2023 2:08:00 AM UT (NoWait: Shipu) 1975-2 Bilirubin.total [Mass/volume] in Serum or Plasma N 0.5 mg/dL 0.4 mg/dL - 1.5 mg/dL December 30, 2023 2:08:00 AM RUST (NoWait: Shipu) 1920-8 Aspartate aminotransferase [Enzymatic activity/volume] in Serum or Plasma N 22 U/L 15 U/L - 37 U/L December 30, 2023 2:08:00 AM UT (NoWait: Shipu) 1742-6 Alanine aminotransferase [Enzymatic activity/volume] in Serum or Plasma N 27 U/L 12 U/L - 78 U/L December 30, 2023 2:08:00 AM RUST (NoWait: Shipu) 6768-6 Alkaline phosphatase [Enzymatic activity/volume] in Serum or Plasma H 183 U/L 50 U/L - 120 U/L December 30, 2023 2:08:00 AM RUST (TECH: Shipu) ORDER 300: B-TYPE NATRIURETI C PEPTIDE BNP (LOINC: 28613-3) ORDER DATE: December 30, 2023 1:45:00 AM UT Specimen Source: Whole Blood Specimen Type: Whole blood s ample PERFORMING LAB: [address] [id number] Result Comment: Final Result Date: December 30, 2023 2:18:00 AM RUST (TECH: Shipu) LOINC TEST FLAG [place] [address]-6 Natriuretic peptide B [Mass/volume] in Serum or Plasma H 180.0 pg/mL 0.0 pg/mL - 100 pg/mL December 30, 2023 2:18:00 AM UTC (TECH: Shipu) ORDER 400: UA AND MICRO/CULT IF INDICATED (LOINC: 38070-8) ORDER DATE: December 30, 2023 2:02:00 AM UTC Specimen Source: URINE Specimen Type: Urine specime n PERFORMING LAB: [address] [id number] Result Comment: Final Result Date: December 30, 2023 2:23:00 AM UTC (TECH: [employer]) LOINC TEST FLAG RESULT REFERENCE RANGE UPDA KRISSY BY 5778-6 Color of Urine N LT YELLOW YELLOW December 30, 2023 2:23:00 AM UTC (TECH: Shipu) 5767-9 Appearance of Urine N CLEAR CLEAR December 30, 2023 2:23:00 AM UTC (TECH: Shipu) 5792-7 Glucose [Mass/volume] in Urine by Test strip N NORM NORMAL December 30, 2023 2:23:00 AM UTC (TECH: Shipu) 18387-9 Bilirubin.total [Mass/volume] in Urine by Automated test strip N NEGATIVE NEGATIVE December 30, 2023 2:23:00 AM UTC (TECH: Shipu) 5797-6 Ketones [Mass/volume] in Urine by Test strip N NEGATIVE NEGATIVE December 30, 2023 2:23:00 AM UTC (TECH: Shipu) 2965-2 Specific gravity of Urine N 1.010 1.005 - 1.035 December 30, 2023 2:23:00 AM UTC (TECH: Shipu) 36120-9 Erythrocytes [#/volume] in Urine by Automated test strip N 25 (1+) /mcL NEGATIVE December 30, 2023 2:23:00 AM UTC (TECH: Shipu) 02217-5 pH of Urine by Automated test strip N 5.00 5.0 - 7.5 December 30, 2023 2:23:00 AM UTC (TECH: RJV) 36895-0 Protein [Presence] in Urine by Test strip N 15 (TRACE) mg/dL NEGATIVE December 30, 2023 2:23:00 AM UTC (TECH: [employer]) 17681-1 Urobilinogen [Mass/volume] in Urine by Automated test strip N NORM NORMAL December 30, 2023 2:23:00 AM UTC (TECH: Shipu) 92784-4 Nitrate [Presence] in Urine N NEGATIVE NEGATIVE December 30, 2023 2:23:00 AM UTC (TECH: Shipu) 84913-7 Leukocytes [#/volume] in Urine by Test strip N NEGATIVE NEGATIVE December 30, 2023 2:23:00 AM UTC (TECH: Shipu) 85101-1 Other elements in Urine sediment N NOT REQUIRED December 30, 2023 2:23:00 AM UTC (TECH: Shipu) 57152-9 Microscopic observation [Identifier] in Urine sediment by Light microscopy N YES December 30, 2023 2:23:00 AM UTC (TECH: Shipu) 74283-2 Erythrocytes [#/area] in Urine sediment by Microscopy high power field N RARE 0-3 December 30, 2023 2:23:00 AM UTC (TECH: Shipu) 5821-4 Leukocytes [#/area] in Urine sediment by Microscopy high power field N NONE SEEN NONE SEEN December 30, 2023 2:23:00 AM UTC (TECH: Shipu) 74499-6 Epithelial cells.squamous [#/area] in Urine sediment by Microscopy high power field N 1-5 NONE SEEN December 30, 2023 2:23:00 AM UTC (TECH: Shipu) 5769-5 Bacteria [#/area] in Urine sediment by Microscopy high power field N NONE SEEN NONE SEEN December 30, 2023 2:23:00 AM UTC (TECH: Shipu) ORDER 1800: HEMOGLOBIN A1C ( LOINC: 4548-4) ORDER DATE: December 30, 2023 3:32:00 AM UTC Specimen Source: Whole Blood Specimen Type: Whole blood s ample PERFORMING LAB: [address] [id number] Result Comment: Final Result Date: December 30, 2023 10:26:00 AM UTC (TECH: [employer]) LOINC TEST FLAG RESULT REFERENCE RANGE UPDA KRISSY BY 4548-4 Hemoglobin A1c/Hemoglobin.tota l in Blood H 8.4 % 4.5 % - 6.2 % December 30, 2023 10:26:00 AM UTC (TECH: [employer]) 72133-7 Glucose mean value [Mass/volume] in Blood Estimated from glycated hemoglobin H 194 mg/dl 82 mg/dl - 131 mg/dl December 30, 2023 10:26:00 AM UTC (TECH: [employer]) ORDER 1901: CBC AUTO NO DIFF HEMOGRAM (LOINC: 08519-5) ORDER DATE: December 30, 2023 3:32:00 AM UTC Specimen Source: Whole Blood Specimen Type: Whole blood s ample PERFORMING LAB: [address] [id number] Result Comment: Final Result Date: December 30, 2023 10:05:00 AM UTC (TECH: [employer]) LOINC TEST FLAG RESULT REFERENCE RANGE UPDA KRISSY BY 6690-2 Leukocytes [#/volume] in Blood by Automated count N 10.0 10^3/uL 4.5 10^3/uL - 11.5 10^3/uL December 30, 2023 10:05:00 AM UTC (TECH: [employer]) 789-8 Erythrocytes [#/volume] in Blood by Automated count N 4.76 10^6/uL 4.25 10^6/uL - 5.57 10^6/uL December 30, 2023 10:05:00 AM UTC (TECH: [employer]) 718-7 Hemoglobin [Mass/volume] in Blood N 13.7 g/dL 12.0 g/dL - 15.7 g/dL December 30, 2023 10:05:00 AM UTC (TECH: [employer]) 57061-8 Hematocrit [Volume Fraction] of Blood N 40.8 % 36.0 % - 47.0 % December 29 10:05:00 AM UTC (TECH: [employer]) 787-2 Erythrocyte mean corpuscular volume [Entitic volume] by Automated count N 85.7 fl 80 fl - 95 fl December 30, 2023 10:05:00 AM UTC (TECH: [employer]) 95296-4 Erythrocyte mean corpuscular hemoglobin [Entitic mass] in Blood from Fetus by Automated count N 28.8 pg 27.0 pg - 34.0 pg December 30, 2023 10:05:00 AM UTC (TECH: [employer]) 23480-2 Erythrocyte mean corpuscular hemoglobin concentration [Mass/volume] in Blood from Fetus by Automated count N 33.6 g/dL 32.0 g/dL - 36.0 g/dL December 30, 2023 10:05:00 AM UTC (TECH: [employer]) 15692-4 Platelets [#/volume] in Blood N 222 10^3/uL 150 10^3/uL - 450 10^3/uL December 30, 2023 10:05:00 AM RUST (TECH: [employer]) 19482-9 Erythrocyte distribution width [Ratio] N 13.0 % 12.3 % - 15.1 % December 30, 2023 10:05:00 AM RUST (TECH: [employer]) 88487-0 Platelet mean volume [Entitic volume] in Blood by Automated count N 10.2 fl 7.4 fl - 10.4 fl December 30, 2023 10:05:00 AM RUST (TECH: [employer]) ORDER 2001: BASIC METABOLIC PANEL (LOINC: 71368-3) ORDER DATE: December 30, 2023 3:32:00 AM RUST Specimen Source: Serum/Plasm a Specimen Type: Acellular blo od (serum or plasma) specimen PERFORMING LAB: [address] [id number] Result Comment: Final Result Date: December 30, 2023 10:27:00 AM RUST (TECH: [employer]) LOINC TEST FLAG RESULT REFERENCE RANGE UPDA KRISSY BY 2951-2 Sodium [Moles/volume] in Serum or Plasma N 141 mmol/L 136 mmol/L - 145 mmol/L December 30, 2023 10:27:00 AM RUST (TECH: [employer]) 2823-3 Potassium [Moles/volume] in Serum or Plasma N 4.1 mmol/L 3.5 mmol/L - 5.1 mmol/L December 30, 2023 10:27:00 AM RUST (TECH: [employer]) 5-0 Chloride [Moles/volume] in Serum or Plasma N 100 mmol/L 98 mmol/L - 107 mmol/L December 30, 2023 10:27:00 AM RUST (TECH: [employer]) 8-9 Carbon dioxide, total [Moles/volume] in Serum or Plasma H 36 mmol/L 21 mmol/L - 32 mmol/L December 30, 2023 10:27:00 AM RUST (TECH: [employer]) 46196-4 Anion gap 3 in Serum or Plasma N 5.0 December 30, 2023 10:27:00 AM RUST (TECH: [employer]) 2345-7 Glucose [Mass/volume] in Serum or Plasma H 183 mg/dL 70 mg/dL - 110 mg/dL December 30, 2023 10:27:00 AM UT (TECH: [employer]) 3094-0 Urea nitrogen [Mass/volume] in Serum or Plasma H 23 mg/dL 7 mg/dL - 18 mg/dL December 30, 2023 10:27:00 AM UT (TECH: [employer]) 2160-0 Creatinine [Mass/volume] in Serum or Plasma N 1.0 mg/dL 0.6 mg/dL - 1.0 mg/dL December 30, 2023 10:27:00 AM UT (TECH: [employer]) 3097-3 Urea nitrogen/Creatinin e [Mass Ratio] in Serum or Plasma H 23.0 Ratio 9 Ratio - 21 Ratio December 30, 2023 10:27:00 AM RUST (TECH: [employer]) 88231-3 Glomerular filtration rate/1.73 sq M.predicted by Creatinine-based formula (MDRD) N 61 mL/min >60 December 30, 2023 10:27:00 AM RUST (TECH: [employer]) 47683-3 Calcium [Mass/volume] in Serum or Plasma N 9.1 mg/dL 8.5 mg/dL - 10.1 mg/dL December 30, 2023 10:27:00 AM RUST (TECH: [employer]) ORDER 2002: BASIC METABOLIC PANEL (LOINC: 13061-0) ORDER DATE: December 30, 2023 3:32:00 AM RUST Specimen Source: Serum/Plasm a Specimen Type: Acellular blo od (serum or plasma) specimen PERFORMING LAB: [address] [id number] Result Comment: Final Result Date: December 31, 2023 9:48:00 AM RUST (TECH: [employer]) LOINC TEST FLAG RESULT REFERENCE RANGE UPDA KRISSY BY 2951-2 Sodium [Moles/volume] in Serum or Plasma N 138 mmol/L 136 mmol/L - 145 mmol/L December 31, 2023 9:48:00 AM RUST (TECH: [employer]) 2823-3 Potassium [Moles/volume] in Serum or Plasma N 3.8 mmol/L 3.5 mmol/L - 5.1 mmol/L December 31, 2023 9:48:00 AM RUST (TECH: [employer]) 2075-0 Chloride [Moles/volume] in Serum or Plasma L 96 mmol/L 98 mmol/L - 107 mmol/L December 31, 2023 9:48:00 AM UT (TECH: [employer]) 2027-9 Carbon dioxide, total [Moles/volume] in Serum or Plasma H 41 mmol/L 21 mmol/L - 32 mmol/L December 31, 2023 9:48:00 AM RUST (NoWait: [employer]) 05669-7 Anion gap 3 in Serum or Plasma N 1.0 December 31, 2023 9:48:00 AM UT (TECH: [employer]) 2345-7 Glucose [Mass/volume] in Serum or Plasma H 164 mg/dL 70 mg/dL - 110 mg/dL December 31, 2023 9:48:00 AM UT (NoWait: [employer]) 3094-0 Urea nitrogen [Mass/volume] in Serum or Plasma H 29 mg/dL 7 mg/dL - 18 mg/dL December 31, 2023 9:48:00 AM UT (NoWait: [employer]) 2160-0 Creatinine [Mass/volume] in Serum or Plasma N 1.0 mg/dL 0.6 mg/dL - 1.0 mg/dL December 31, 2023 9:48:00 AM UT (TECH: [employer]) 3097-3 Urea nitrogen/Creatinin e [Mass Ratio] in Serum or Plasma H 29.0 Ratio 9 Ratio - 21 Ratio December 31, 2023 9:48:00 AM RUST (NoWait: [employer]) 04331-8 Glomerular filtration rate/1.73 sq M.predicted by Creatinine-based formula (MDRD) N 61 mL/min >60 December 31, 2023 9:48:00 AM RUST (TECH: [employer]) 10683-3 Calcium [Mass/volume] in Serum or Plasma N 8.9 mg/dL 8.5 mg/dL - 10.1 mg/dL December 31, 2023 9:48:00 AM RUST (TECH: [employer]) ORDER 1: MAGNESIUM (LOINC : 71408-8) ORDER DATE: December 30, 2023 3:32:00 AM UT Specimen Source: Serum/Plasm a Specimen Type: Acellular blo od (serum or plasma) specimen PERFORMING LAB: [address] [id number] Result Comment: Final Result Date: December 30, 2023 10:27:00 AM UTC (TECH: [employer]) LOINC TEST FLAG RESULT [place] [address]-9 Magnesium [Mass/volume] in Serum or Plasma L 1.7 mg/dL 1.8 mg/dL - 2.4 mg/dL December 30, 2023 10:27:00 AM UTC (TECH: [employer]) ORDER 2102: MAGNESIUM (LOINC : 56286-1) ORDER DATE: December 30, 2023 3:32:00 AM UTC Specimen Source: Serum/Plasm a Specimen Type: Acellular blo od (serum or plasma) specimen PERFORMING LAB: [address] [id number] Result Comment: Final Result Date: December 31, 2023 9:48:00 AM UTC (TECH: [employer]) LOINC TEST FLAG RESULT [place] [address]-3 Magnesium [Mass/volume] in Serum or Plasma N 1.9 mg/dL 1.8 mg/dL - 2.4 mg/dL December 31, 2023 9:48:00 AM UTC (TECH: [employer]) ORDER 2200: GLUCOSE BLD METE R (LOINC: 94060-6) ORDER DATE: December 30, 2023 4:47:00 AM UTC Specimen Source: Whole Blood Specimen Type: Whole blood s ample PERFORMING LAB: [address] [id number] Result Comment: December 29 4:48:00 AM UTC Test performed by: [id number] ; Instrument: [id number] Final Result Date: December 30, 2023 4:47:00 AM UTC (TECH: [employer]) LOINC TEST FLAG RESULT [place] [address]-0 Glucose [Mass/volume] in Capillary blood by Glucometer H 148 mg/dl 70 mg/dl - 115 mg/dl December 30, 2023 4:47:00 AM UTC (TECH: [employer]) ORDER 3500: POTASSIUM (LOINC : 2823-3) ORDER DATE: December 31, 2023 2:17:00 AM UTC Specimen Source: Serum/Plasm a Specimen Type: Acellular blo od (serum or plasma) specimen PERFORMING LAB: [address] [id number] Result Comment: Final Result Date: December 31, 2023 3:06:00 AM RUST (TECH: RJV) LOINC TEST FLAG RESULT REFERENCE RANGE UPDA KRISSY BY 2823-3 Potassium [Moles/volume] in Serum or Plasma N 3.7 mmol/L 3.5 mmol/L - 5.1 mmol/L December 31, 2023 3:06:00 AM RUST (TECH: RJV) LABORATORY NARRATIVE RESULTS Information is not available RADIOLOGY RESULTS ORDER 600: CHEST SINGLE VIEW /PORTABLE (LOINC: 07663-9) ORDER DATE: December 30, 2023 2:26:00 AM RUST PERFORMING LAB: [address] [id number] Final Result Date: December 30, 2023 11:38:[address] [place] [address] Name: NIKI TRIPLETT Exam Date: 12/29/2023 : 1970 Age 53 years Gender: F Physician: HORTENCIA CALZADA Facility: [facility] Facility HSV: Outpatient Exam: CHEST SINGLE [...] Thank you for referring UZIELNIKI WELLER to Psychiatric. Legally authenticated by BONNIE AMARAL MD 2023-12-30 [...] ibed: December 31, 2023 5:15:3 1 PM RUST [id number] on December 31, 2023 5:15:31 PM UT Continued 211034 carvedilol 25 mg tablet 1 TAB BY MOUTH TWICE A DAY Prescr ibed: December 31, 2023 5:15:3 1 PM RUST [id number] on December 31, 2023 5:15:31 PM UT Continued 498275 trazodone 50 mg tablet 50 MG BY MOUTH AT BEDTIME Prescr ibed: December 31, 2023 5:15:3 1 PM RUST [id number] on December 31, 2023 5:15:31 PM UT Continued 672712 benzonatate 100 mg capsule 1 CAP BY MOUTH ONCE DAILY Prescr ibed: December 31, 2023 5:15:3 1 PM RUST [id number] on December 31, 2023 5:15:31 PM UT Continued 946502 tizanidine 4 mg capsule 1 CAP BY MOUTH TWICE A DAY Prescr ibed: December 31, 2023 5:15:3 1 PM RUST [id number] on December 31, 2023 5:15:31 PM UT Continued 009917 Synthroid 88 mcg tablet 1 TAB BY MOUTH ONCE DAILY Prescr ibed: December 31, 2023 5:15:3 1 PM RUST [id number] on December 31, 2023 5:15:31 PM UT Continued 911057 gabapentin (NEURONTIN) 400 MG BY MOUTH THREE TIMES A DAY Prescr ibed: December 31, 2023 5:15:3 1 PM RUST [id number] on December 31, 2023 5:15:31 PM RUST Continued 026746 furosemide 80 mg tablet 1 TAB BY MOUTH TWICE A DAY Prescr ibed: December 31, 2023 5:15:3 1 PM RUST [id number] on December 31, 2023 5:15:31 PM RUST Continued 742597 Novolin 70/30 U-100 Insulin 100 unit/mL (70-30) suspension 0 SUBCUTANEOUS TWICE A DAY Prescr ibed: December 31, 2023 5:15:3 1 PM RUST [id number] on December 31, 2023 5:15:31 PM UT Continued 166707 fenofibrate 54 mg tablet 1 TAB BY MOUTH ONCE DAILY Prescr ibed: December 31, 2023 5:15:3 1 PM UT [id number] on December 31, 2023 5:15:31 PM UT Continued duloxetine 60 mg Capsule, Delayed Release Sprinkle 1 CAP BY MOUTH ONCE DAILY Prescr ibed: December 31, 2023 5:15:3 1 PM UT [id number] on December 31, 2023 5:15:31 PM UT Continued 830078 Humulin R Regular U-100 Insuln 100 unit/mL solution 0 Prescr ibed: December 31, 2023 5:15:3 1 PM UT sliding scale [id number] on December 31, 2023 5:15:31 PM UT Continued 6268581 Basaglar KwikPen U-100 Insulin 100 unit/mL (3 mL) Insulin Pen 10 UNT SUBCUTANEOUS ONCE DAILY Prescr ibed: December 31, 2023 5:15:3 1 PM UT [id number] on December 31, 2023 5:15:31 PM UT Continued 982473 simvastatin 80 mg tablet 1 TAB BY MOUTH ONCE DAILY Prescr ibed: December 31, 2023 5:15:3 1 PM RUST [id number] on December 31, 2023 5:15:31 PM UT Continued 033488 ropinirole 3 mg tablet 1 TAB BY MOUTH AT BEDTIME Prescr ibed: December 31, 2023 5:15:3 1 PM UT [id number] on December 31, 2023 5:15:31 PM UT Continued 108636 losartan 100 mg tablet 1 TAB BY MOUTH ONCE DAILY Prescr ibed: December 31, 2023 5:15:3 1 PM RUST [id number] on December 31, 2023 5:15:31 PM UT Continued 343453 isosorbide mononitrate 30 mg Tablet, Extended Release 24 hr 1 TAB BY MOUTH ONCE DAILY Prescr ibed: December 31, 2023 5:15:3 1 PM UT [id number] on December 31, 2023 5:15:31 PM RUST PATIENT OPEN ORDERS Code System Description Frequency Occurrences Priority Start Date Ordering Physician Updated By ZINATEN [facility] [place] 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 HOSPITAL COURSE HOSPITAL COURSE Note Title Discharge Summary Date Of Service December 31, 2023 5:16:4 2 PM UT Created By [id number] on December 31, 2023 5:16:42 PM UT Signed By [email or web address] on December 31, 2023 5:18:54 PM RUST 53-year-old woman with sever e morbid obesity, [...] venous studies. MEDICATIONS HOME MEDICATIONS Status [facility] Medication Dose Route Frequency Dates Comments Reported By Updated By Active [id number] 41561 3 trazodone 50 mg tablet 50.0 MG BY MOUTH BEDTIME Last Dose: [email or web address] on December 30, 2023 1:27:17 PM RUST Active [id number] [id number] 07312 1 Novolin 70/30 U-100 Insulin 100 unit/mL (70-30) suspension 0.0 SUBCUT ANEOUS BID Last Dose: [id number] on December 31, 2023 5:15:06 PM UT Active [id number] [id number] 31370 9 Basaglar KwikPen U-100 Insulin 100 unit/mL (3 mL) Insulin Pen 10.0 UNT SUBCUT ANEOUS DAILY Last Dose: [id number] on December 30, 2023 2:06:37 AM UT Active [id number] 85437 47763 1 Humulin R Regular U-100 Insuln 100 unit/mL solution 0.0 Last Dose: sliding scale [id number] on December 31, 2023 5:14:55 PM UT Active 286684 69097 06039 9 losartan 100 mg tablet 1.0 TAB BY MOUTH DAILY Last Dose: [id number] on December 30, 2023 1:28:15 PM UT Active FreeT extMe d duloxetine 60 mg Capsule, Delayed Release Sprinkle 1.0 CAP BY MOUTH DAILY Last Dose: [id number] on December 30, 2023 2:06:38 AM UT Active 423278 89776 53059 7 fenofibrate 54 mg tablet 1.0 TAB BY MOUTH DAILY Last Dose: [id number] on December 30, 2023 1:28:14 PM UT Active 814503 79627 94306 0 simvastatin 80 mg tablet 1.0 TAB BY MOUTH DAILY Last Dose: [id number] on December 30, 2023 2:06:38 AM UT Active 166195 20290 00072 1 tizanidine 4 mg capsule 1.0 CAP BY MOUTH BID Last Dose: [id number] on December 30, 2023 1:28:14 PM UT Active 347367 64514 30017 1 furosemide 80 mg tablet 1.0 TAB BY MOUTH BID Last Dose: [id number] on December 30, 2023 1:28:14 PM UT Active 445997 93594 52494 0 Synthroid 88 mcg tablet 1.0 TAB BY MOUTH DAILY Last Dose: [id number] on December 30, 2023 2:06:38 AM UT Active 481601 92263 98320 1 benzonatate 100 mg capsule 1.0 CAP BY MOUTH DAILY Last Dose: [id number] on December 30, 2023 1:28:14 PM UT Active 776343 00703 68309 0 carvedilol 25 mg tablet 1.0 TAB BY MOUTH BID Last Dose: [id number] on December 30, 2023 2:06:39 AM UT Active 722746 51736 45131 1 isosorbide mononitrate 30 mg Tablet, Extended Release 24 hr 1.0 TAB BY MOUTH DAILY Last Dose: [id number] on December 30, 2023 2:06:39 AM UT Active 329276 59999 81120 0 ropinirole 3 mg tablet 1.0 TAB BY MOUTH BEDTIME Last Dose: [id number] on December 30, 2023 2:06:39 AM UT Active FreeT extMe d dilaudid 0.5mg q 3hrs per internal pain pump ' 0.0 Q3H Last Dose: [id number] on December 31, 2023 5:14:45 PM UT Active 102122 14776 07060 1 gabapentin (NEURONTIN) 400.0 MG BY MOUTH TID Last Dose: PATIENT [id number] on December 31, 2023 12:07:32 PM UT DISCHARGE MEDICATIONS Status RXNORM NDC Medication Dose Route Frequency Dates Comments Physician Updated By Continue d Free Text Med dilaudid 0.5mg q 3hrs per internal pain pump ' 0.0 EVERY THREE HOURS Prescr ibed: December 31, 2023 5:15:3 1 PM UT CONCHA Salas MD, PHY [id number] on December 31, 2023 5:15:31 PM UT Continue d 682316 2835 0211 900 carvedilol 25 mg tablet 1.0 TAB BY MOUTH TWICE A DAY Prescr ibed: December 31, 2023 5:15:3 1 PM UT CONCHA Salas MD PHY [id number] on December 31, 2023 5:15:31 PM UT Continue d 800970 8578 5157 503 trazodone 50 mg tablet 50.0 MG BY MOUTH AT BEDTIME Prescr ibed: December 31, 2023 5:15:3 1 PM UT CONCHA Salas MD PHY [id number] on December 31, 2023 5:15:31 PM UT Continue d 466973 9149 0638 701 benzonatate 100 mg capsule 1.0 CAP BY MOUTH ONCE DAILY Prescr ibed: December 31, 2023 5:15:3 1 PM UT CONCHA Salas MD PHY [id number] on December 31, 2023 5:15:31 PM UT Continue d 543994 5040 9887 201 tizanidine 4 mg capsule 1.0 CAP BY MOUTH TWICE A DAY Prescr ibed: December 31, 2023 5:15:3 1 PM UT CONCHA Salas MD PHY [id number] on December 31, 2023 5:15:31 PM UTC Continue d 594746 8342 4659 490 Synthroid 88 mcg tablet 1.0 TAB BY MOUTH ONCE DAILY Prescr ibed: December 31, 2023 5:15:3 1 PM UT CONCHA Salas MD PHY [id number] on December 31, 2023 5:15:31 PM UTC Continue d 167245 2559 7060 211 gabapentin (NEURONTIN) 400.0 MG BY MOUTH THREE TIMES A DAY Prescr ibed: December 31, 2023 5:15:3 1 PM UT CONCHA Salas MD Y [id number] on December 31, 2023 5:15:31 PM UTC Continue d 824035 1355 1047 001 furosemide 80 mg tablet 1.0 TAB BY MOUTH TWICE A DAY Prescr ibed: December 31, 2023 5:15:3 1 PM UT CONCHA Salas MD PHY [id number] on December 31, 2023 5:15:31 PM UTC Continue d 998169 8539 9183 711 Novolin 70/30 U-100 Insulin 100 unit/mL (70-30) suspension 0.0 SUBCUT ANEOUS TWICE A DAY Prescr ibed: December 31, 2023 5:15:3 1 PM UT CONCHA Salas MD PHY [id number] on December 31, 2023 5:15:31 PM UTC Continue d 308077 8683 8710 077 fenofibrate 54 mg tablet 1.0 TAB BY MOUTH ONCE DAILY Prescr ibed: December 31, 2023 5:15:3 1 PM UT CONCHA Salas MD PHY [id number] on December 31, 2023 5:15:31 PM UTC Continue d Free Text Med duloxetine 60 mg Capsule, Delayed Release Sprinkle 1.0 CAP BY MOUTH ONCE DAILY Prescr ibed: December 31, 2023 5:15:3 1 PM UT CONCHA Salas MD PHY [id number] on December 31, 2023 5:15:31 PM UTC Continue d 500502 7157 2020 301 Humulin R Regular U-100 Insuln 100 unit/mL solution 0.0 Prescr ibed: December 31, 2023 5:15:3 1 PM UT sliding scale CONCHA Salas MD PHY [id number] on December 31, 2023 5:15:31 PM UTC Continue d 1721442 3130 2771 559 Zoe Castaneda U-100 Insulin 100 unit/mL (3 mL) Insulin Pen 10.0 UNT SUBCUT ANEOUS ONCE DAILY Prescr ibed: December 31, 2023 5:15:3 1 PM UT CONCHA Salas MD PHY [id number] on December 31, 2023 5:15:31 PM UTC Continue d 244265 2253 2051 490 simvastatin 80 mg tablet 1.0 TAB BY MOUTH ONCE DAILY Prescr ibed: December 31, 2023 5:15:3 1 PM UT CONCHA Salas MD PHY [id number] on December 31, 2023 5:15:31 PM UT Continue d 501008 1026 7059 910 ropinirole 3 mg tablet 1.0 TAB BY MOUTH AT BEDTIME Prescr ibed: December 31, 2023 5:15:3 1 PM UT CONCHA Salas MD PHY [id number] on December 31, 2023 5:15:31 PM UTC Continue d 324841 4459 5014 399 losartan 100 mg tablet 1.0 TAB BY MOUTH ONCE DAILY Prescr ibed: December 31, 2023 5:15:3 1 PM UT CONCHA Salas MD PHY [id number] on December 31, 2023 5:15:31 PM UT Continue d 216790 9158 2017 501 isosorbide mononitrate 30 mg Tablet, Extended Release 24 hr 1.0 TAB BY MOUTH ONCE DAILY Prescr ibed: December 31, 2023 5:15:3 1 PM UT CONCHA Salas MD PHY [id number] on December 31, 2023 5:15:31 PM [facility] INPATIENT MEDICATIONS Status RXNORM [facility] Medication Dose Route Frequency Rat e Quantity Dates Comments Physician Updated By Zuri inued [id number] 1810 9610 204 furosemide 40mg vial (LASIX) 10 MG/ML SOLN 40.0 MG INTRAV ENOUS ONE TIME ONLY Start: December 30, 2023 2:29:0 0 AM UT End: December 30, 2023 2:29:0 0 AM UT ELSI Salas MD INTERFAC ED on December 30, 2023 2:28:00 AM UTC Discont inued 200352 8011 9005 420 metolazone (ZAROXOLYN) 5 MG TABS 5.0 MG BY MOUTH ONE TIME ONLY Start: December 30, 2023 3:07:0 0 AM UTC End: December 30, 2023 3:07:0 0 AM UTC ELSI Salas MD INTERFAC ED on December 30, 2023 3:07:00 AM UTC Discont inued 6202606 3577 9128 331 HYDROmorpho ne (DILAUDID) 1 MG/ML SOLN 1.0 MG INTRAV ENOUS ONE TIME ONLY Start: December 30, 2023 3:17:0 0 AM UTC End: December 30, 2023 3:17:0 0 AM UTC ELSI Salas MD INTERFAC ED on December 30, 2023 3:16:00 AM UTC Discont inued 859697 3231 6589 688 nicotine TD (NICODERM) 21 MG/24HR PT24 21.0 MG TRANSD ERMAL ONCE DAILY Start: December 30, 2023 3:25:0 0 AM UTC End: December 31, 2023 5:15:0 0 PM UTC FURNISH FELICIA [employer] [id number] on January 01, 2024 4:25:00 AM UTC Discont inued 4756 1570 121 MONOJECT FLUSH SYRINGE 0.9 % SOLN 10.0 ML INTRAV ENOUS TWICE A DAY Start: December 30, 2023 1:00:0 0 PM UTC End: December 31, 2023 5:15:0 0 PM UTC [employer] [id number] on January 01, 2024 4:25:00 AM UTC Discont inued 7910 1570 121 MONOJECT FLUSH SYRINGE 0.9 % SOLN 10.0 ML INTRAV ENOUS NEEDED Start: December 30, 2023 3:25:0 0 AM UTC End: December 31, 2023 5:15:0 0 PM UTC [employer] [id number] on January 01, 2024 4:25:00 AM UTC Discont inued 203037 15855793 3748 922 hydrALAZINE (APRESOLINE ) 20 MG/ML SOLN 10.0 MG INTRAV ENOUS EVERY FOUR HOURS NEEDED Start: December 30, 2023 3:25:0 0 AM UTC End: December 31, 2023 5:15:0 0 PM UTC FURNISH FELICIA ROBLESP [id number] on January 01, 2024 4:25:00 AM UTC Discont inued 1298391 4074 9232 934 LABETALOL 5 MG/ML SOLN 10.0 MG [...] 01, 2024 4:25:00 AM UTC Discont inued 2697779 2624 1019 601 PERCOCET 5-325 MG TABS 1.0 TAB BY MOUTH EVERY SIX HOURS NEEDED Start: December 30, 2023 3:25:0 0 AM UTC End: December 31, 2023 5:15:0 0 PM UTC FURN[employer] F[employer]IA ROBLESP [id number] on January 01, 2024 4:25:00 AM UTC Discont inued 076354 1307 1043 301 traZODone (DESYREL) 50 MG TABS 50.0 MG BY MOUTH AT BEDTIME NEEDED Start: December 30, 2023 3:25:0 0 AM UTC End: December 31, 2023 5:15:0 0 PM UTC FURNISH FELICIA ROBLESP [id number] on January 01, 2024 4:25:00 AM UTC Discont inued 6750866 2947 9130 331 HYDROmorpho ne (DILAUDID) 1 MG/ML SOLN 1.0 MG INTRAV ENOUS EVERY FOUR HOURS NEEDED Start: December 30, 2023 3:25:0 0 AM UTC End: December 30, 2023 1:28:5 9 PM UTC FURNISH FELICIA BL[employer] [id number] on December 30, 2023 1:28:00 PM UTC Discont inued 560822 16386405 6448 852 ACETAMINOPH EN 325 MG TABS 650.0 MG BY MOUTH EVERY SIX HOURS NEEDED Start: December 30, 2023 3:25:0 0 AM UTC End: December 31, 2023 5:15:0 0 PM UTC FURN[employer] F[employer]IA [employer] [id number] on January 01, 2024 4:25:00 AM UTC Discont inued [phone] 7012 911 docusate sodium (COLACE) 100 MG CAPS 100.0 MG BY MOUTH TWICE A DAY NEEDED Start: December 30, 2023 3:25:0 0 AM UTC End: December 31, 2023 5:15:0 0 PM UTC [employer] [id number] on January 01, 2024 4:25:00 AM UTC Discont inued 505978 8659 9030 630 polyethylen e glycol (MIRALAX) 3350 PK PACK 17.0 GM BY MOUTH ONCE DAILY NEEDED Start: December 30, 2023 3:25:0 0 AM UTC End: December 31, 2023 5:15:0 0 PM UTC [employer] [id number] on January 01, 2024 4:25:00 AM UTC Discont inued 441814 0611685 7506 7367 880 pantoprazol e (PROTONIX) 40 MG TBEC 40.0 MG BY MOUTH ONCE DAILY Start: December 30, 2023 1:00:0 0 PM UTC End: December 31, 2023 5:15:0 0 PM UTC FURN[employer] F[employer]IA [employer] [id number] on January 01, 2024 4:25:00 AM UTC Discont inued 422516 [id number] 8485 5167 082 enoxaparin (LOVENOX) 40 MG/0.4ML SOSY 40.0 MG SUBCUT ANEOUS ONCE DAILY Start: December 30, 2023 1:00:0 0 PM UTC End: December 30, 2023 2:22:1 0 PM UTC FURNISH FELICIA ROBLESP [id number] on December 30, 2023 2:22:00 PM UTC Discont inued 3903369 5022 9475 503 ondansetron (ZOFRAN) 4 MG/2ML SOLN 4.0 MG INTRAV ENOUS EVERY EIGHT HOURS NEEDED Start: December 30, 2023 3:25:0 0 AM UTC End: December 31, 2023 5:15:0 0 PM UTC FURNISH FELICIA ROBLESP [id number] on January 01, 2024 4:25:00 AM UTC Discont inued 975042 3567 6024 064 ondansetron (ZOFRAN) 4 MG TBDP 4.0 MG SUBLIN GUAL EVERY EIGHT HOURS NEEDED Start: December 30, 2023 3:25:0 0 AM UTC End: December 31, 2023 5:15:0 0 PM UTC FURNISH FELICIA ROBLESP [id number] on January 01, 2024 4:25:00 AM UTC Discont inued 463634 3818 2751 017 insulin lispro(NICO LOG) 100 UNIT/ML SOLN 1.0 UNT SUBCUT ANEOUS SLIDING SCALE NEEDED Start: December 30, 2023 3:30:0 0 AM UTC End: December 31, 2023 5:15:0 0 PM UTC FURNISH FELICIA ROBLESP [id number] on January 01, 2024 4:25:00 AM UTC Discont inued 9073679 0477 9490 264 dextrose SYR (D50) PFS 50 % SOLN 50.0 ML INTRAV ENOUS NEEDED Start: December 30, 2023 3:30:0 0 AM UTC End: December 31, 2023 5:15:0 0 PM UTC FURNISH FELICIA ROBLESP [id number] on January 01, 2024 4:25:00 AM UTC Discont inued 5689125 0881 0028 425 furosemide 100mg vial (LASIX) 10 MG/ML SOLN 100.0 MG INTRAV ENOUS CONT 40.0 ML/HR Start: December 30, 2023 3:31:0 0 AM UTC End: December 31, 2023 2:12:3 9 PM UTC FURNISH FELICIA ROBLESP [id number] on December 31, 2023 2:13:00 PM UTC Discont inued 7919668 0386 8004 948 sodium chloride (NS) 0.9% SOLN 90.0 ML INTRAV ENOUS CONT 40.0 ML/HR Start: December 30, 2023 3:31:0 0 AM UTC End: December 31, 2023 2:12:3 9 PM UTC SRIRAM BLANKENSHIP [id number] on December 31, 2023 2:13:00 PM UTC Discont inued 7456950 5197 0028 225 furosemide 20mg vial (LASIX) 10 MG/ML SOLN 20.0 MG INTRAV ENOUS ONE TIME ONLY Start: December 30, 2023 4:15:0 0 AM UTC End: December 30, 2023 4:15:0 0 AM UTC CONCHA Salas MD INTERFAC ED on December 30, 2023 4:13:00 AM UTC Discont inued 0647080 8097 9610 204 furosemide 40mg vial (LASIX) 10 [...] 1:00:0 0 AM UTC CONCHA Salas MD [id number] on December 30, 2023 1:31:00 PM UTC Discont inued Free Text Med Synthroid 88 mcg tablet 1.0 TAB BY MOUTH ONCE DAILY Start: December 31, 2023 1:00:0 0 PM UTC End: December 31, 2023 1:00:0 0 PM UTC CONCHA Salas MD [id number] on December 30, 2023 1:32:00 PM UTC Discont inued Free Text Med Basaglar KwikPen U-100 Insulin 100 unit/mL (3 mL) Insulin Pen 10.0 UNT SUBCUT ANEOUS ONCE DAILY Start: December 31, 2023 1:00:0 0 PM UTC End: December 31, 2023 1:00:0 0 PM UTC CONCHA Salas MD [id number] on December 30, 2023 1:33:00 PM UTC Discont inued 567834 1802 1043 301 traZODone (DESYREL) 50 MG TABS [...] 1:00:0 0 PM UTC CONCHA Salas MD [id number] on December 30, 2023 1:32:00 PM UTC Discont inued Free Text Med ropinirole 3 mg tablet 1.0 TAB BY MOUTH AT BEDTIME Start: December 31, 2023 1:00:0 0 AM UTC End: December 31, 2023 1:00:0 0 AM UTC CONCHA Salas MD [id number] on December 30, 2023 1:32:00 PM UTC Discont inued 332716 7775 2017 501 isosorbide mononitrate SR 30 MG TB24 30.0 MG BY MOUTH ONCE DAILY Start: December 31, 2023 1:00:0 0 PM UTC End: December 31, 2023 1:00:0 0 PM UTC CONCHA Salas MD [id number] on December 30, 2023 1:31:00 PM UTC Discont inued Free Text Med duloxetine 60 mg Capsule, Delayed Release Sprinkle 1.0 CAP BY MOUTH ONCE DAILY Start: December 31, 2023 1:00:0 0 PM UTC End: December 31, 2023 1:00:0 0 PM UTC CONCHA Salas MD [id number] on December 30, 2023 1:31:00 PM UTC Discont inued 030551 4106 4073 301 hydrALAZINE (APRESOLINE ) 25 MG TABS 25.0 MG BY MOUTH FOUR TIMES A DAY Start: December 30, 2023 1:28:0 0 PM UTC End: December 31, 2023 5:15:0 0 PM UTC CONCHA Salas MD [id number] on January 01, 2024 4:25:00 AM UTC Discont inued 020559 4032 4630 261 carvedilol (COREG) 12.5 MG TABS 25.0 MG BY MOUTH TWICE A DAY Start: December 30, 2023 1:30:0 0 PM UTC End: December 31, 2023 5:15:0 0 PM UTC CONCHA Salas MD [id number] on January 01, 2024 4:25:00 AM UTC Discont inued 338369 2225 4068 311 DULOXETINE HCL 30 MG CPEP 60.0 MG BY MOUTH ONCE DAILY Start: December 30, 2023 1:31:0 0 PM UTC End: December 31, 2023 5:15:0 0 PM UTC CONCHA Salas MD [id number] on January 01, 2024 4:25:00 AM UTC Discont inued 973986 8234 2017 501 isosorbide mononitrate SR 30 MG TB24 30.0 MG BY MOUTH ONCE DAILY Start: December 31, 2023 1:00:0 0 PM UTC End: December 31, 2023 5:15:0 0 PM UTC CONCHA Salas MD [id number] on January 01, 2024 4:25:00 AM UTC Discont inued 176821 2318 2002 231 rOPINIRole (REQUIP) 1 MG TABS 3.0 MG BY MOUTH AT BEDTIME Start: December 31, 2023 1:00:0 0 AM UTC End: December 31, 2023 5:15:0 0 PM UTC CONCHA Salas MD [id number] on January 01, 2024 4:25:00 AM UTC Discont inued 495605 7346 9045 501 simvastatin (ZOCOR) 20 MG TABS 80.0 MG BY MOUTH AT BEDTIME Start: December 31, 2023 1:00:0 0 AM UTC End: December 31, 2023 5:15:0 0 PM UTC CONCHA Salas MD [id number] on January 01, 2024 4:25:00 AM UTC Discont inued 421461 6725 7134 401 levothyroxi ne (SYNTHROID) 88 MCG TABS 88.0 MCG BY MOUTH DAILY AT 0700 Start: December 31, 2023 11:00: 00 AM UTC End: December 31, 2023 5:15:0 0 PM UTC CONCHA Salas MD [id number] on January 01, 2024 4:25:00 AM UTC Discont inued 6331601 4950 9 380 insulin glargine-YF GN 100 UNIT/ML SOLN 10.0 UNT SUBCUT ANEOUS ONCE DAILY Start: December 30, 2023 1:33:0 0 PM UTC End: December 31, 2023 5:15:0 0 PM UTC CONCHA Salas MD [id number] on January 01, 2024 4:25:00 AM UTC Discont inued 786006 0230 8041 082 enoxaparin (LOVENOX) 40 MG/0.4ML SOSY 40.0 MG SUBCUT ANEOUS TWICE A DAY Start: December 31, 2023 1:00:0 0 AM UTC End: December 31, 2023 5:15:0 0 PM UTC SRIRAM FELICIA JACKSON [employer] [id number] on January 01, 2024 4:25:00 AM UTC Discont inued 6498 0033 901 MAGNESIUM-O XIDE 400 (240 Mg) MG TABS 400.0 MG BY MOUTH TWICE A DAY Start: December 30, 2023 2:35:0 0 PM UTC End: December 31, 2023 5:15:0 0 PM UTC CONCHA Salas MD [id number] on January 01, 2024 4:25:00 AM UTC Discont inued 0050495 9854 5531 911 KLOR-CON M20 20 MEQ TBCR 20.0 MEQ BY MOUTH ONCE DAILY Start: December 30, 2023 2:35:0 0 PM UTC End: December 31, 2023 5:15:0 0 PM UTC CONCHA Salas MD [id number] on January 01, 2024 4:25:00 AM UTC Discont inued 7829733 5612 1019 601 PERCOCET 5-325 MG TABS 1.0 TAB BY MOUTH ONE TIME ONLY Start: December 30, 2023 8:51:0 0 PM UTC End: December 30, 2023 8:56:1 5 PM UTC CONCHA Salas MD [id number] on December 30, 2023 8:56:00 PM UTC Discont inued 7238458 6347 9610 204 furosemide 40mg vial (LASIX) 10 MG/ML SOLN 40.0 MG INTRAV ENOUS ONE TIME ONLY Start: December 31, 2023 2:04:0 0 AM UTC End: December 31, 2023 2:04:0 0 AM UTC CONCHA Salas MD INTERFAC ED on December 31, 2023 2:02:00 AM UTC Discont inued 5241073 1143 0028 225 furosemide 20mg vial (LASIX) 10 MG/ML SOLN 20.0 MG INTRAV ENOUS ONE TIME ONLY Start: December 31, 2023 2:04:0 0 AM UTC End: December 31, 2023 2:04:0 0 AM UTC CONCHA Salas MD INTERFAC ED on December 31, 2023 2:03:00 AM UTC Discont inued 5037357 8576 9672 924 MAG SULF 2GM/50ML PRE-MIX 40 MG/ML SOLN 2.0 GM INTRAV ENOUS NOW 25.0 ML/HR Start: December 31, 2023 2:16:0 0 AM UTC End: December 31, 2023 2:23:2 2 AM UTC FURNISH FELICIA BLANKENSHIP [id number] on December 31, 2023 2:23:00 AM UTC Discont inued 2898825 5379 5531 911 KLOR-CON M20 20 MEQ TBCR 40.0 MEQ BY MOUTH ONE TIME ONLY Start: December 31, 2023 3:39:0 0 AM UTC End: December 31, 2023 3:59:0 8 AM UTC FURNLYDIA BLANKENSHIP [id number] on December 31, 2023 3:59:00 AM UTC Discont inued 226212 9587 7060 211 gabapentin (NEURONTIN) 400 MG CAPS 400.0 MG BY MOUTH THREE TIMES A DAY Start: December 31, 2023 1:37:0 0 PM UTC End: December 31, 2023 5:15:0 0 PM UTC CONCHA Salas MD [id number] on January 01, 2024 4:25:00 AM UTC Discont inued [id number] 1206 0028 425 furosemide 100mg vial (LASIX) 10 MG/ML SOLN 100.0 MG INTRAV ENOUS CONT 10.0 ML/HR Start: December 31, 2023 3:00:0 0 PM UTC End: December 31, 2023 5:15:0 0 PM UTC FURNISH FELICIA BLANKENSHIP [id number] on January 01, 2024 4:25:00 AM UTC Discont inued [id number] 1879 8004 948 sodium chloride (NS) 0.9% SOLN [...] Description Effective Dates Offered Cessation Comment UpdatedBy [id number] Current Tobacco smoking status Current Every Day Smoker Refused [id number] on December 31, 2023 1:18:46 PM UTC [id number] Historical Tobacco smoking status Former Smoker End: February 09, 2016 4:00:00 AM UTC Not Applicable [id number] on February 08, 2018 6:30:33 AM UTC [id number] Historical Tobacco smoking status Never Smoked Not Applicable [id number] on November 03, 2016 9:23:18 PM UTC [...] for each vital sign as of January 04, 2024 2:03:17 AM [place] Loinc Code Vital [place] [address]-3 Blood glucose monitors December 30, 2023 9:47:00 PM UTC 210.0 mg/dL [id number] on December 30, 2023 9:47:39 PM UT 8302-2 Body height December 30, 2023 4:59:45 AM UTC 152.4 cm (60.0 in) [id number] on December 30, 2023 4:59:45 AM UTC 26299-6 Body mass index (BMI ) [Ratio] December 30, 2023 4:59:45 AM UTC 59.364 kg/m2 [id number] on December 30, 2023 4:59:45 AM UTC 3140-1 Body Surface Area Derived From Formula December 30, 2023 4:59:45 AM UTC 2.2302 m2 [id number] on December 30, 2023 4:59:45 AM UTC 8310-5 Body temperature December 31, 2023 11:21:00 AM UTC 98.5 [degF] [id number] on December 31, 2023 11:21:53 AM UTC 07020-9 Body weight Measured December 29 4:59:45 AM UTC 137.892 kg (304.0 lb) [id number] on December 30, 2023 4:59:45 AM UTC 8462-4 Diastolic blood pressure December 31, 2023 11:21:00 AM UTC 57.0 mm[Hg] [id number] on December 31, 2023 11:21:53 AM UTC 8867-4 Heart rate December 31, 2023 11:26:00 AM UTC 64 /min [id number] on December 31, 2023 7:18:55 PM UTC 65950-3 Oxygen saturation in Arterial blood by Pulse oximetry December 31, 2023 11:26:00 AM UTC 96.0 % [id number] on December 31, 2023 7:18:55 PM UTC 9279-1 Respiratory rate December 31, 2023 11:21:00 AM UTC 16 /min [id number] on December 31, 2023 11:21:53 AM UTC 22862-3 Spirometry panel December 31, 2023 11:26:00 AM UTC 7.0 {score} [id number] on December 31, 2023 7:18:55 PM UTC 8480-6 Systolic blood pressure December 31, 2023 11:21:00 AM UTC 123.0 mm[Hg] [id number] on December 31, 2023 11:21:53 AM UTC [...] BASED CARE FOR MED-SURG December 30, 2023 [id number] on December 30, 2023 5:27:49 AM [facility] Problems Concern Status Health Concern problem infor mation not available. Smoking Status Status Years Used Consumed packs p er day Health Concern smoking histo ry information not available. Family History Concern Status Health Concern family histor y information not available. ENCOUNTERS ENCOUNTER INFORMATION Reason for Visit VENOUS INSUFFICIENCY Admission December 30, 2023 3:23:[address] [address] Discharge December 31, 2023 5:15:00 PM [facility] DIS CHARGED TO HOME OR SELF CARE ENCOUNTER DIAGNOSES Notes information is not gloria ilable. Code System Diagnosis Onset Date Diagnosis information is not available. ABSTRACT DIAGNOSES Code System Diagnosis Updated By I87.2 ICD10 VENOUS INSUFFICI ENCY (CHRONIC) (PERIPHERAL) [id number] on January 02, 2024 1:28:26 PM [facility] I87.2 ICD10 VENOUS INSUFFICI ENCY (CHRONIC) (PERIPHERAL) [id number] on January 02, 2024 1:28:26 PM [facility] E66.2 ICD10 MORBID (SEVERE) OBESITY WITH ALVEOLAR HYPOVENTILATION [id number] on January 02, 2024 1:28:26 PM [facility] Z68.44 ICD10 BODY MASS INDEX [BMI] 60.0-6 9.9, ADULT [id number] on January 02, 2024 1:28:26 PM [facility] E11.65 ICD10 TYPE 2 DIABETES MELLITUS WITH HYPERGLYCEMIA [id number] on January 02, 2024 1:28:26 PM [facility] E11.621 ICD10 TYPE 2 DIABETES MELLITUS WITH FOOT ULCER [id number] on January 02, 2024 1:28:26 PM [facility] 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 [id number] on January 02, 2024 1:28:26 PM [facility] G89.29 ICD10 OTHER CHRONIC PAIN [id number] o n January 02, 2024 1:28:26 PM [facility] 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 NSULIN [id number] on January 02, 2024 1:28:26 PM [facility] Z79.899 ICD10 OTHER RESIDENTIAL (CURRENT) DR MEYERS THERAPY [id number] on January 02, 2024 1:28:26 PM [facility] Z88.1 ICD10 ALLERGY STATUS T O OTHER ANTIBIOTIC AGENTS [id number] on January 02, 2024 1:28:26 PM [facility] Z88.8 ICD10 ALLERGY STATUS T O OTHER DRUGS, MEDICAMENTS AND BIOLOGICAL SUBSTANCES [id number] on January 02, 2024 1:28:26 PM [facility] Z96.653 ICD10 PRESENCE OF [place] FICIAL KNEE JOINT, BILATERAL [id number] on January 02, 2024 1:28:26 PM [facility] E78.5 ICD10 HYPERLIPIDEMIA, UNSPECIFIED [id number] on January 02, 2024 1:28:26 PM [facility] J44.9 ICD10 CHRONIC OBSTRUCT DIANA PULMONARY DISEASE, UNSPECIFIED [id number] on January 02, 2024 1:28:26 PM [facility] E03.9 ICD10 HYPOTHYROIDISM, UNSPECIFIED [id number] on January 02, 2024 1:28:26 PM [facility]UST F41.9 ICD10 ANXIETY DISORDER, UNSPECIFIE D [id number] on January 02, 2024 1:28:26 PM [facility] E11.40 ICD10 TYPE 2 DIABETES MELLITUS WITH DIABETIC NEUROPATHY, UNSPECIFIED [id number] on January 02, 2024 1:28:26 PM [facility]UST M54.9 ICD10 DORSALGIA, UNSPECIFIED [id number] on January 02, 2024 1:28:26 PM [facility] Z86.711 ICD10 PERSONAL HISTORY OF PULMONAR Y EMBOLISM [id number] on January 02, 2024 1:28:26 PM [facility] F17.210 ICD10 NICOTINE DEPENDE NCE, CIGARETTES, UNCOMPLICATED [id number] on January 02, 2024 1:28:26 PM [facility] CARE TEAM Care Computer Help Desk Representative Role NANCY KERN Primary Attending NANCY KERN Admitting NANCY KERN Referring YUSUF STEPHY [facility] HOSPITAL DISCHARGE INSTRUCTION DISCHARGE INSTRUCTION Encounter [id number] Admit Date December 30, 2023 3:23: 00 AM RUST Discharge Date December 31, 2023 5:15:0 0 PM [facility] PATIENT EDUCATION SUMMARY Patient/Visit Information: Patient Name: NIKI TRIPLETT Diag: Attending Caregiver: CONCHA Salas MD Discharge Instruction Sheets Provided: *[facility] Patient Portal *[facility] Social Determinants of Health *BRBN Suicidal Feelings: How to Help Yourself (LPNT) () Chronic Venous Insufficiency Smoking\Tobacco Cessation - Psychiatric () () Patient Instructions: Additional Notes for *[facility] Please follow up with your primary physician within one week. Followup Appointments/Instructions: HISTORY AND PHYSICAL NOTE HISTORY AND PHYSICAL NOTE Note Title Admission History an d Physical Date Of Service December 30, 2023 2:37: 45 PM UT Created By [id number] on December 30, 2023 2:37:45 PM UT Signed By [email or web address] on December 30, 2023 2:43:01 PM UTC Chief Complaint Lower extremity swelling History of [...] 2023 5:02: 30 AM UTC Created By [email or web address] on December 30, 2023 5:02:30 AM UTC Signed By [id number] on December 30, 2023 5:03:07 AM UTC [...] None Electronically signed by BERONICA Carlos - POWDER COMPOUNDER on 0103 DISCHARGE SUMMARY NOTE DISCHARGE SUMMARY NOTE Note Title Nurse Discharge Note Date Of Service December 31, 2023 8:40:1 0 PM UTC Created By [email or web address] on December 31, 2023 8:40:10 PM UTC Signed By [id number] on December 31, 2023 8:40:41 PM UTC Cognitive Status Alert, Oriented x4 Functional Status No functional deficits identified Discharge Diagnosis Edema due to fluid overload Peripheral venous insufficiency Electronically signed by MELQUIADES Romero RN RN on 1640 Note Title Discharge Summary Date Of Service December 31, 2023 5:16:4 2 PM UT Created By [id number] on December 31, 2023 5:16:42 PM UTC Signed By [id number] on December 31, 2023 5:18:54 PM UTC [...] Intake 900 - 1280 Output 9200 3050 71767 Balance (-8300) (-3050) (-98037) Physical Exam Respiratory Symmetry of chest movement [...] Condition at Discharge Good Discharge Medications <style size='11'>Basagljasmin Castaneda U-100 Insulin 100 unit/mL (3 mL) Insulin Pen</style><style size='9' forecolor='#879594'>10 UNT SUBCUTANEOUS ONCE DAILY </style> <style size='11'>benzonatate 100 mg capsule</style><style size='9' forecolor='#251852'>1 CAP BY MOUTH ONCE DAILY </style> <style size='11'>carvedilol 25 mg tablet</style><style size='9' forecolor='#625765'>1 TAB BY MOUTH TWICE A DAY </style> <style size='11'>dilaudid 0.5mg q 3hrs per internal pain pump '</style>Continue taking same as home <style size='11'>duloxetine 60 mg Capsule, Delayed Release Sprinkle</style><style size='9' forecolor='#911878'>1 CAP BY MOUTH ONCE DAILY </style> <style size='11'>fenofibrate 54 mg tablet</style><style size='9' forecolor='#066436'>1 TAB BY MOUTH ONCE DAILY </style> <style size='11'>furosemide 80 mg tablet</style><style size='9' forecolor='#526737'>1 TAB BY MOUTH TWICE A DAY </style> <style size='11'>gabapentin (NEURONTIN)</style><style size='9' forecolor='#594299'>400 MG BY MOUTH THREE TIMES A DAY </style> <style size='11'>Humulin R Regular U-100 Insuln 100 unit/mL solution</style>Continue taking same as home <style size='11'>isosorbide mononitrate 30 mg Tablet, Extended Release 24 hr</style><style size='9' forecolor='#917084'>1 TAB BY MOUTH ONCE DAILY </style> <style size='11'>losartan 100 mg tablet</style><style size='9' forecolor='#897768'>1 TAB BY MOUTH ONCE DAILY </style> <style size='11'>Novolin 70/30 U-100 Insulin 100 unit/mL (70-30) suspension</style>Continue taking same as home <style size='11'>ropinirole 3 mg tablet</style><style size='9' forecolor='#848321'>1 TAB BY MOUTH AT BEDTIME </style> <style size='11'>simvastatin 80 mg tablet</style><style size='9' forecolor='#807762'>1 TAB BY MOUTH ONCE DAILY </style> <style size='11'>Synthroid 88 mcg tablet</style><style size='9' forecolor='#880331'>1 TAB BY MOUTH ONCE DAILY </style> <style size='11'>tizanidine 4 mg capsule</style><style size='9' forecolor='#848818'>1 CAP BY MOUTH TWICE A DAY </style> <style size='11'>trazodone 50 mg tablet</style><style size='9' forecolor='#067083'>50 MG BY MOUTH AT BEDTIME </style> Discharge Instructions Daily weights. Diabetic diet. Follow-Up PCP this week. Podiatry next week. 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
--- OUTSIDE RECORDS SUMMARY | 2024-07-15 11:16 | XMS_ITS | Continuity of Care Document ---
Author Organization [facility] Phone Care Team Providers Care Fellmongering Machine Operator Name Role Phone YUSUF KEYES Primary Care LUCHO FREEMAN Admitting LUCHO FREEMAN Unavailable LUCHO FREEMAN Primary Attending ALLERGIES AND ADVERSE REACTIONS ALLERGIES AND ADVERSE REACTIONS Code System Allergy Substance Adverse Reaction Date Reaction (Severity) Comment Status Reported By Updated By 5640 RXNorm IBUPROFEN Rash (Moderate) active [id number] on March 03, 2024 7:47:53 PM UT 2193 RXNorm Rocephin Rash (Moderate) active [id number] on March 03, 2024 7:47:53 PM UT 3643 RXNorm Inapsine Shortness of breath/diffic ulty breathing active [id number] on March 03, 2024 7:47:53 PM UTC 045329 RXNorm AVELOX Rash (Moderate) active [id number] on March 03, 2024 7:47:53 PM UTC FAMILY HISTORY RELATION: Father Status: LIVING SNOMED-CT Diagnosis Age At Onset [id number] Diabetes mellitus [id number] Hypertensive disorder [id number] Hypercholesterolemia 8460487 Arthritis RELATION: Mother Status: LIVING SNOMED-CT Diagnosis Age At Onset [id number] Diabetes mellitus 57614414 Hypertensive disorder 54752414 Hypercholesterolemia 5150546 Arthritis RESULTS Patient: UZIEL Cheng Date of : 1970 LABORATORY RESULTS ORDER 100: CBC AUTO W DIFF ( LOINC: 69418-1) ORDER DATE: March 03, 2024 8:00:00 PM UTC Specimen Source: Whole Blood Specimen Type: Whole blood s ample PERFORMING LAB: [address] [id number] Result Comment: Final Result Date: March 03, 2024 8:16:00 PM UT (TECH: [employer]) LOINC TEST FLAG RESULT REFERENCE RANGE UPDA KRISSY BY 6690-2 Leukocytes [#/volume] in Blood by Automated count N 8.9 10^3/uL 4.5 10^3/uL - 11.5 10^3/uL March 03, 2024 8:16:00 PM UTC ([place]: [employer]) 789-8 Erythrocytes [#/volume] in Blood by Automated count N 5.07 10^6/uL 4.25 10^6/uL - 5.57 10^6/uL March 03, 2024 8:16:00 PM UTC ([place]: [employer]) 718-7 Hemoglobin [Mass/volume] in Blood N 14.6 g/dL 12.0 g/dL - 15.7 g/dL March 03, 2024 8:16:00 PM UTC (TECH: [employer]) 60755-5 Hematocrit [Volume Fraction] of Blood N 44.7 % 36.0 % - 47.0 % March 03, 2024 8:16:00 PM UTC ([place]: [employer]) 787-2 Erythrocyte mean corpuscular volume [Entitic volume] by Automated count N 88.2 fl 80 fl - 95 fl March 03, 2024 8:16:00 PM UTC (TECH: [employer]) 10521-7 Erythrocyte mean corpuscular hemoglobin [Entitic mass] in Blood from [place] by Automated count N 28.8 pg 27.0 pg - 34.0 pg March 03, 2024 8:16:00 PM UTC (TECH: [employer]) 19650-5 Erythrocyte mean corpuscular hemoglobin concentration [Mass/volume] in Blood from [place] by Automated count N 32.7 g/dL 32.0 g/dL - 36.0 g/dL March 03, 2024 8:16:00 PM UTC (TECH: [employer]) 20350-3 Platelets [#/volume] in Blood N 235 10^3/uL 150 10^3/uL - 450 10^3/uL March 03, 2024 8:16:00 PM UTC ([place]: [employer]) 83071-4 Erythrocyte distribution width [Ratio] N 14.4 % 12.3 % - 15.1 % March 03, 2024 8:16:00 PM UTC (TECH: [employer]) 09397-8 Platelet mean volume [Entitic volume] in Blood by Automated count N 10.3 fl 7.4 fl - 10.4 fl March 03, 2024 8:16:00 PM UTC (TECH: [employer]) 92196-2 Granulocytes/100 leukocytes in Blood by Automated count [...] March 03, 2024 8:16:00 PM UTC (TECH: [employer]) 14521-2 Immature granulocytes [#/volume] in Blood N 0.2 % 0.0 % - 0.8 % March 03, 2024 8:16:00 PM UTC (TECH: [employer]) 67971-4 Granulocytes [#/volume] in Blood by Automated count [...] March 03, 2024 8:16:00 PM UT (TECH: [employer]) 37282-7 Immature granulocytes [#/volume] in Blood N 0.02 10^3/uL March 03, 2024 8:16:00 PM UT (TECH: [employer]) 05343-4 Manual differential performed [Presence] in Blood N NO March 03, 2024 8:16:00 PM UT (TECH: [employer]) ORDER 200: COMP METABOLIC PA MARLEY (LOINC: 19650-1) ORDER DATE: March 03, 2024 8:00:00 PM UT Specimen Source: Plasma Specimen Type: Plasma specim en PERFORMING LAB: [address] [id number] Result Comment: Final Result Date: March 03, 2024 8:27:00 PM UT (TECH: [employer]) LOINC TEST FLAG RESULT REFERENCE RANGE UPDA KRISSY BY 2951-2 Sodium [Moles/volume ] in Serum or Plasma L 135 mmol/L 136 mmol/L - 145 mmol/L March 03, 2024 8:27:00 PM UT (TECH: [employer]) 2823-3 Potassium [Moles/volume] in Serum or Plasma N 4.4 mmol/L 3.5 mmol/L - 5.1 mmol/L March 03, 2024 8:27:00 PM UT (TECH: [employer]) 2075-0 Chloride [Moles/volu me] in Serum or Plasma N 100 mmol/L 98 mmol/L - 107 mmol/L March 03, 2024 8:27:00 PM UT (TECH: [employer]) 8-9 Carbon dioxide, tota l [Moles/volume] in Serum or Plasma N 29 mmol/L 21 mmol/L - 32 mmol/L March 03, 2024 8:27:00 PM UT (TECH: [employer]) 95292-9 Anion gap 3 in Serum or Plasma N 6.0 March 03, 2024 8:27:00 PM UT (TECH: [employer]) 2345-7 Glucose [Mass/volume ] in Serum or Plasma H 298 mg/dL 70 mg/dL - 110 mg/dL March 03, 2024 8:27:00 PM UTC (TECH: [employer]) 3094-0 Urea nitrogen [Mass/volume] in Serum or Plasma N 15 mg/dL 7 mg/dL - 18 mg/dL March 03, 2024 8:27:00 PM [facility] (TECH: [employer]) 2160-0 Creatinine [Mass/volume] in Serum or Plasma N 0.9 mg/dL 0.6 mg/dL - 1.0 mg/dL March 03, 2024 8:27:00 PM [facility] (TECH: [employer]) 3097-3 Urea nitrogen/Creatinine [Mass Ratio] in Serum or Plasma N 16.7 Ratio 9 Ratio - 21 Ratio March 03, 2024 8:27:00 PM [facility] (TECH: [employer]) 88651-3 Glomerular filtratio n rate/1.73 sq M.predicted by Creatinine-based formula (MDRD) N 69 mL/min >60 March 03, 2024 8:27:00 PM [facility] (TECH: [employer]) 2885-2 Protein [Mass/volume ] in Serum or Plasma N 8.0 g/dL 6.4 g/dL - 8.2 g/dL March 03, 2024 8:27:00 PM [facility] ([place]: [employer]) 1751-7 Albumin [Mass/volume ] in Serum or Plasma L 2.6 g/dL 3.4 g/dL - 5.0 g/dL March 03, 2024 8:27:00 PM [facility] (TECH: [employer]) 16946-8 Calcium [Mass/volume ] in Serum or Plasma N 9.1 mg/dL 8.5 mg/dL - 10.1 mg/dL March 03, 2024 8:27:00 PM [facility] ([place]: [employer]) 88023-8 Calcium [Mass/volume ] corrected for total protein in Serum or Plasma H 10.2 mg/dL 8.5 mg/dL - 10.1 mg/dL March 03, 2024 8:27:00 PM [facility] (TECH: [employer]) 1975-2 Bilirubin.total [Mass/volume] in Serum or Plasma N 0.4 mg/dL 0.4 mg/dL - 1.5 mg/dL March 03, 2024 8:27:00 PM [facility] (TECH: [employer]) 1920-8 Aspartate aminotransferase [Enzymatic activity/volume] in Serum or Plasma H 47 U/L 15 U/L - 37 U/L March 03, 2024 8:27:00 PM [facility] (TECH: [employer]) 1742-6 Alanine aminotransferase [Enzymatic activity/volume] in Serum or Plasma N 49 U/L 12 U/L - 78 U/L March 03, 2024 8:27:00 PM UTC (TECH: [employer]) 6768-6 Alkaline phosphatase [Enzymatic activity/volume] in Serum or Plasma H 212 U/L 50 U/L - 120 U/L March 03, 2024 8:27:00 PM UT (TECH: [employer]) ORDER 500: LACTIC ACID (LOIN C: 98765-4) ORDER DATE: March 03, 2024 8:00:00 PM UTC Specimen Source: Serum/Plasm a Specimen Type: Acellular blo od (serum or plasma) specimen PERFORMING LAB: [place] [id number] Result Comment: Final Result Date: March 03, 2024 8:38:00 PM UT (TECH: [employer]) LOINC TEST FLAG [place] [address]-3 Lactate [Mass/volume] in Serum or Plasma N 1.0 mmole/L 0.4 mmole/L - 2.0 mmole/L March 03, 2024 8:38:00 PM UT (TECH: [employer]) ORDER 600: TROPONIN QUANT (L OINC: 54086-4) ORDER DATE: March 03, 2024 8:00:00 PM UTC Specimen Source: Plasma Specimen Type: Plasma specim en PERFORMING LAB: [address] [id number] Result Comment: Final Result Date: March 03, 2024 8:27:00 PM UT (TECH: [employer]) LOINC TEST FLAG [place] [address]-0 Troponin I.cardiac panel - Serum or Plasma by High sensitivity method N 22 ng/L 0 ng/L - 51 ng/L March 03, 2024 8:27:00 PM UT (TECH: [employer]) ORDER 700: B-TYPE NATRIURETI C PEPTIDE BNP (LOINC: 68211-7) ORDER DATE: March 03, 2024 8:00:00 PM UTC Specimen Source: Whole Blood Specimen Type: Whole blood s ample PERFORMING LAB: [address] [id number] Result Comment: Final Result Date: March 03, 2024 9:15:00 PM UT (TECH: [employer]) LOINC TEST FLAG [place] [address]-1 Natriuretic peptide B [Mass/volume] in Serum or Plasma H 731.0 pg/mL 0.0 pg/mL - 100 pg/mL March 03, 2024 9:15:00 PM UTC (TECH: [employer]) ORDER 900: GRAM STAIN (LOINC : 664-3) ORDER DATE: March 03, 2024 8:00:00 PM UTC Specimen Source: Culture Specimen Type: Culture - gen eral PERFORMING LAB: [address] [id number] Result Comment: March 03, 2024 8:44:00 PM UTC Sub-optimal specimen. Hold culture for 24 hrs. Final Result Date: March 03, 2024 8:44:00 PM UTC (TECH: [employer]) LOINC TEST FLAG [place] [address]-4 Specimen source subj ect [Type] N SPUTUM [...] 03, 2024 8:44:00 PM UTC (TECH: [employer]) 92269-3 Leukocytes [Presence ] in Unspecified specimen by Gram stain N RARE March 03, 2024 8:44:00 PM UTC (TECH: [employer]) 29585-7 Epithelial cells [Presence] in Unspecified specimen by Gram stain N 10-25 March 03, 2024 8:44:00 PM [facility] (TECH: [employer]) 90332-2 Yeast [Presence] in Unspecified specimen by Wet preparation N NONE SEEN March 03, 2024 8:44:00 PM [facility] (TECH: [employer]) 648-6 Microscopic observat ion [Identifier] in Sputum by Gram stain N SUB-OPTIMAL March 03, 2024 8:44:00 PM [facility] (TECH: [employer]) LABORATORY NARRATIVE RESULTS Information is not available RADIOLOGY RESULTS ORDER 1000: CT CHEST PE PROT OCOL (LOINC: 98903-6) ORDER DATE: March 03, 2024 8:00:00 PM [facility] PERFORMING LAB: [address] [id number] Final Result Date: March 03 9:54:[address] [place] [address] Name: NIKI TRIPLETT Exam Date: 03/03/2024 : 1970 Age 53 years Gender: F Physician: Facility: [facility] Facility HSV: Outpatient Exam: CT [...] Thank you for referring NIKI TRIPLETT to [facility]. Legally authenticated by JUDD Nunez MD [...] 0 Stat March 03, 2024 8:00:00 PM [facility] PETE Salas MD [id number] on March 03, 2024 8:00:00 PM [facility] 600-7 LOINC Bacteria identified in Blood by Culture ONE TIME 0 Stat March 03, 2024 8:00:00 PM [facility] PETE Salas MD 3726 on March 03, 2024 8:00:00 PM [facility] 6460-0 LOINC Bacteria identified in Sputum by Culture ONE TIME 0 Stat March 03, 2024 8:00:00 PM [facility] PETE Salas MD 3726 on March 03, 2024 8:00:00 PM [facility] 42626-0 LOINC Gas panel - Arterial blood ONE TIME 0 Stat March 03, 2024 9:07:00 PM [facility] PETE Salas MD [id number] on March 03, 2024 9:07:00 PM [facility] SCHEDULED PROCEDURES Code System Description Status Scheduled [...] Dates Comments Physician Updated By Zuri inued 750065 2979 1032 608 nitroglycer in oint (NITRO-BID) 2 % OINT 1.0 IN TOPICA L ONE TIME ONLY Start: March 03, 2024 8:06:0 0 PM UTC End: March 03, 2024 8:06:0 0 PM UTC PETE Salas MD INTERFAC ED on March 03, 2024 8:05:00 PM UTC Discont inued [id number] 6307 9610 204 furosemide 40mg vial (LASIX) 10 MG/ML SOLN 40.0 MG INTRAV ENOUS ONE TIME ONLY Start: March 03, 2024 8:06:0 0 PM UTC End: March 03, 2024 8:06:0 0 PM UTC PETE Salas MD INTERFAC ED on March 03, 2024 8:05:00 PM UTC Discont inued [id number] 2575 3027 803 METHYLPREDN ISOLONE SODIUM SUCC 125 MG SOLR 125.0 MG INTRAV ENOUS ONE TIME ONLY Start: March 03, 2024 8:06:0 0 PM UTC End: March 03, 2024 8:06:0 0 PM UTC PETE Salas MD INTERFAC ED on March 03, 2024 8:05:00 PM UTC Discont inued 7430039 6360 7020 101 DUONEB 0.5-2.5 MG/3 ML SOLN 1.0 NEB INHALE D ONE TIME ONLY Start: March 03, 2024 8:14:0 0 PM UTC End: March 03, 2024 8:14:0 0 PM UTC PETE Salas MD INTERFAC ED on March 03, 2024 8:12:00 PM UTC Discont inued 6906497 3881 3039 810 azithromyci n (ZITHROMAX) 500 MG SOLR 500.0 MG INTRAV ENOUS ONE TIME ONLY Start: March 03, 2024 8:28:0 0 PM UTC End: March 03, 2024 8:28:0 0 PM UTC PETE Salas MD INTERFAC ED on March 03, 2024 8:27:00 PM UTC Discont inued 0267097 5185 7020 101 DUONEB 0.5-2.5 MG/3 ML SOLN 1.0 NEB INHALE D ONE TIME ONLY Start: March 03, 2024 9:14:0 0 PM UTC End: March 03, 2024 9:14:0 0 PM UTC PETE Salas MD INTERF ED on March 03, 2024 9:12:00 PM UTC SOCIAL HISTORY SOCIAL HISTORY SNOMED-CT Social History Element Description Effective Dates Offered Cessation Comment UpdatedBy [id number] Historical Tobacco smoking status Current Every Day Smoker Refused [id number] on December 31, 2023 1:18:46 PM UTC 1345406 Historical Tobacco smoking status Former Smoker End: February 09, 2016 4:00:00 AM UTC Not Applicable [id number] on February 08, 2018 6:30:33 AM UTC 303107608 Historical Tobacco smoking status Never Smoked Not Applicable [id number] on November 03, 2016 9:23:18 PM UTC [...] for each vital sign as of March 05, 2024 5:47:38 AM UT Loinc Code Vital Sign Activity Date Result Updated By 8310-5 Body temperature March 03, 2024 7: 45:00 PM UTC 98.8 [degF] [id number] on March 03, 2024 8:12:59 PM UT 8462-4 Diastolic blood pressure March 03, 2024 9:45:00 PM UTC 91.0 mm[Hg] [id number] on March 03, 2024 10:01:41 PM UT 8867-4 Heart rate March 03, 2024 9:5 7:00 PM UTC 81 /min [id number] on March 03, 2024 10:01:[place] [address]-2 Oxygen saturation in Arterial blood by Pulse oximetry March 03, 2024 9:57:00 PM UTC 95.0 % [id number] on March 03, 2024 10:01:42 PM UT 9279-1 Respiratory rate March 03, 2024 9: 04:00 PM UTC 18 /min [id number] on March 03, 2024 9:08:08 PM UT 8480-6 Systolic blood pressure March 03, 2024 9:45:00 PM UT 162.0 mm[Hg] [id number] on March 03, 2024 10:01:41 PM [facility] PEDIATRIC GROWTH CHART - VITAL SIGNS This [...] BREATH Admission March 03, 2024 7:42:[address] [id number] Discharge March 03, 2024 10:34:00 PM [facility] LEF T AGAINST ADVICE OR DISCONTINUED ENCOUNTER DIAGNOSES Notes information is not gloria ilable. Code System Diagnosis Onset Date Diagnosis information is not available. 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 [id number] on March 05, 2024 5:46:29 AM [facility] E66.01 ICD10 MORBID (SEVERE) OBESITY DUE TO EXCESS CALORIES [id number] on March 05, 2024 5:46:29 AM [facility] F17.210 ICD10 NICOTINE DEPENDE NCE, CIGARETTES, UNCOMPLICATED [id number] on March 05, 2024 5:46:29 AM [facility] Z68.42 ICD10 BODY MASS INDEX [BMI] 45.0-4 9.9, ADULT [id number] on March 05, 2024 5:46:29 AM UTC Z88.1 ICD10 ALLERGY STATUS T O OTHER ANTIBIOTIC AGENTS [id number] on March 05, 2024 5:46:29 AM UTC Z88.6 ICD10 ALLERGY STATUS TO ANALGESIC AGENT [id number] on March 05, 2024 5:46:29 AM UTC Z88.8 ICD10 ALLERGY STATUS T O OTHER DRUGS, MEDICAMENTS AND BIOLOGICAL SUBSTANCES [id number] on March 05, 2024 5:46:29 AM UT CARE TEAM Care Fellmongering Machine Operator Role YUSUF KEYES Primary Care LUCHO FREEMAN Admitting LUCHO FREEMAN Referring LUCHO FREEMAN Primary Attending CARE TEAM CARE assistant nurse manager Role on Team Status Start Date End Date Update d By PETE Salas MD Referring normal March 03 8:08:07 PM UT March 03, 2024 10:34:00 PM UT [id number] on March 03, 2024 8:08:07 PM UT PETE Salas MD Attending normal March 03 8:08:07 PM UTC March 03, 2024 10:34:00 PM UTC [id number] on March 03, 2024 8:08:07 PM UT PETE Salas MD Admitting normal March 03 8:08:07 PM UT March 03, 2024 10:34:00 PM UTC [id number] on March 03, 2024 8:08:07 PM UT STEPHY DOYLE APRN PCP normal March 03, 2024 7:43:04 PM UT March 03, 2024 10:34:00 PM UTC [id number] on March 03, 2024 8:08:07 PM UT
[2024-07-15] MEDS: humaLOG 100 UNITS/ML 10ML VIAL (SSI) SQ ×2 (11:52→20:34)
[2024-07-15 12:00] VITALS: BP 105/72; PULSE 61; RESP 16; TEMP 37.2; O2SAT 97
[2024-07-15] MEDS: FUROSEMIDE 80 MG TABLET PO (12:01)
[2024-07-15] MEDS: LINEZOLID 600 MG/300 ML IV.SOLN 300 MG IV (12:10)
[2024-07-15] MEDS: LIDOCAINE 5% TRANSDERMAL PATCH 1 EACH TP (15:51)
[2024-07-15 16:43] LABS: POC Glucose,Bedside 143 (70-110)
--- NOTE | 2024-07-15 19:14 | PC.NURSE ---
1900: Pt. alert and orientated x 4. Pt. with wound VAC draining bloody drainage. Pt. continues to have pain with right fooot. Frequently ask for pain meds. PICC line to left arm, leaking, dressing was loose and falling off. PICC line was assessed by Dr. Rolon. PICC line was pulled. Pt. layed flat and took a breath and line was pulled while Pt. was breathing out. tip sent for culture. Gauze and tegaderm dressing applied.
[2024-07-15 20:00] VITALS: BP 134/61; PULSE 63; RESP 18; TEMP 36.7; O2SAT 99
[2024-07-15 20:17] LABS: POC Glucose,Bedside 205 (70-110)
[2024-07-15] MEDS: INSULIN GLARGINE 100 UNITS/ML 3ML FLEXPEN 15 UNIT SQ (20:32)
[2024-07-15] MEDS: ROPINIROLE 1MG TABLET 3 MG PO (20:32)
[2024-07-15] MEDS: PANTOPRAZOLE 40MG TABLET 40 MG PO (20:32)
[2024-07-15] MEDS: TRAZODONE 50MG TABLET 150 MG PO (20:33)
--- NOTE | 2024-07-15 21:54 | P.PN_ITS ---
Subjective *Date: 07/15/24 *Time: 21:54 Exam Data for Last 24 hours Vital signs and Labs for Last 24 Hours: Temp Pulse Resp BP Pulse Ox O2 Del Method O2 Flow Rate 98.0 F 63 18 134/61 99 Nasal Cannula 3 07/15/24 20:00 07/15/24 20:00 07/15/24 20:00 07/15/24 20:00 07/15/24 20:00 07/15/24 21:00 07/15/24 21:00 FiO2 8 07/13/24 19:07 Laboratory Results - last 24 hr 07/15/24 06:16: WBC 13.8 H, RBC 4.03 L, Hgb 12.2, Hct 37.0, MCV 91.9, MCH 30.2, MCHC 32.8, RDW 14.2, Plt Count 268, MPV 7.3 L, Neut % (Auto) 78.3, Lymph % (Auto) 15.5, [place] % (Auto) 5.7, Eos % (Auto) 0.3, Baso % (Auto) 0.3, Neut # (Auto) 10.8 H, Lymph # (Auto) 2.1, [place] # (Auto) 0.8, Eos # (Auto) 0.0, Baso # (Auto) 0.0, ESR 88 H, Sodium 132 L, Potassium 4.5, Chloride 91 L, Carbon Dioxide 38 H, Anion Gap 7.5, BUN 27 H, Creatinine 1.00, Estimated Creat Clear 60, Estimated GFR 58 L, Est GFR ( Amer) 70 D, Glucose 164 H, Calcium 9.0, Total Bilirubin 0.6, AST 24, ALT 12, Alkaline Phosphatase 96, C-Reactive Protein 116.2 H, Total Protein 7.2, Albumin 3.3 L, Globulin 3.9 H, Albumin/Globulin Ratio 0.8 L 07/15/24 16:30: POC Glucose 143 H 07/15/24 20:09: POC Glucose 205 H I & O for Last 24 hours: Intake & Output 07/12/24 07/13/24 07/14/24 07/15/24 23:59 23:59 23:59 23:59 Intake Total 740 / 1160 2480 / 3020 2380 / 2380 900 / 900 Output Total 2200 / 2200 350 / 350 750 / 1200 900 / 900 Balance -1460 / -1040 2130 / 2670 1630 / 1180 0 / 0 Weight 110.767 kg 112.219 kg 113.217 kg 117.662 kg Microbiology Reports for the Last 24 Hours: Microbiology 07/14/24 Unknown Foot,Right Gram Stain - Final 07/14/24 Unknown Foot,Right Abscess Culture - Preliminary NO GROWTH AFTER 24 HOURS Constitutional Constitutional: no acute distress *Routine HEENT Exam Head: Present normocephalic Eye: Present EOMI and PERRL ENT: Present mucous membranes moist *Routine Neck Exam Neck: Present supple; Absent lymphadenopathy *Routine Respiratory Exam Respiratory: Present CTA bilaterally *Routine Cardiovascular Exam Cardiovascular: Present RRR *Routine Abdominal Exam Abdominal: Present soft and normoactive bowel sounds; Absent tenderness *Routine Extremities Exam Extremities: Absent cyanosis, clubbing or edema Comments: Right foot dressed s/p debridement and amputation. ARLINE drain in place with minimal bloody discharge. *Routine Skin Exam Skin: Present warm; Absent rash *Routine Neurological Exam Neurological: Present alert and oriented X3 Assessment and Plan *Assessment and plan (1) Cellulitis of right foot: Status: Acute Category: Medical Code(s): L03.115 - Cellulitis of right lower limb (2) Osteomyelitis: Status: Acute Qualifiers: Laterality: right Osteomyelitis location: foot Osteomyelitis type: unspecified type Qualified Code(s): M86.9 - Osteomyelitis, unspecified Category: Medical Code(s): M86.9 - Osteomyelitis, unspecified (3) Diabetic foot ulcer: Status: Acute Qualifiers: Diabetic foot ulcer location: other Diabetes mellitus type: type 2 Laterality: right Non-pressure ulcer stage: with necrosis of bone Qualified Code(s): E11.621 - Type 2 diabetes mellitus with foot ulcer; L97.514 - Non- pressure chronic ulcer of other part of right foot with necrosis of bone Category: Medical Code(s): E11.621 - Type 2 diabetes mellitus with foot ulcer; L97.509 - Non-pressure chronic ulcer of other part of unspecified foot with unspecified severity (4) Neuropathy: Status: Chronic Category: Medical Code(s): G62.9 - Polyneuropathy, unspecified (5) Hypothyroidism: Status: Acute Category: Medical Code(s): E03.9 - Hypothyroidism, unspecified (6) Moderate depressive disorder: Status: Acute Category: Medical Code(s): F32.A - Depression, unspecified (7) Type 2 diabetes mellitus: Status: Chronic Qualifiers: 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 Patient reports pus discharge from ulcer as well as worsening pain 10/10 intensity constant, sharp. Patient otherwise denied chest pain shortness of breath nausea vomiting diarrhea constipation dysuria fevers and chills. Status post I&D with amputation of fifth metatarsal of right foot. Has developed fever over the past 24 hours. Podiatry to reevaluate in the morning. Continues to require inpatient management. Due to worsening condition over the weekend, will go back to OR for revision. CT per my review concerning for fluid collection and gas. Problems addressed as follows: R Diabetic foot ulcer R Diabetic foot cellulitis Acute on chronic osteomyelitis of R foot ? Patient states she has had a right foot ulcer for the past few months, getting worse over the past week prior to admission. Initial CT of the foot revealed acute on chronic osteomyelitis, CRP and ESR also significantly elevated. ? Patient is status post right fifth metatarsal amputation, incision and drainage, and debridement of midfoot. ? Repeat CT this weekend obtained; per my review showing fluid collection and subcu gas. Concern for recurrence of infection. Evaluated by podiatry yesterday, underwent further debridement in the OR yesterday. ARLINE drain in place with some bloody discharge. -Continue gabapentin to 800mg TID; oxycodone 5 mg BID as needed for severe breakthrough pain. Monitor for toxicity. Requiring at least 2 doses daily for pain. -Tylenol 650 mg p.o. every 4 hours as needed for fever - WBC increased to 13.8 after surgery yesteday, likely reactive with resolving infection but will continue to monitor. Inflammatory markers increased to 116 for CRP. ? Continue Zyvox and Levaquin. Day 8 of 3 weeks. ?-Continue nonweightbearing status on right foot. ? PICC line draining yellow somewhat purulent drainage. Blood cultures obtained from PICC, plan to remove and replace in different site tomorrow. ? Patient accepted to [facility] for swing bed. Insurance approval came through late Sunday. Patient can dc if stable tomorrow. Diabetes mellitus ?KORINASI, ACHS glucose checks - Morning glucose 111 -Receiving approximately 12 units of short acting insulin daily. Tolerating 15 units insulin glargine. Monitor for short acting needs. Chronic medical conditions Hypertension Hypothyroidism Depression Hyperlipidemia Restless leg syndrome -Continue medications including coreg, lisinopril, ropinirole, methimazole, Protonix, trazodone, duloxetine, home Imdur 30 mg daily. - cont. Lasix, 80mg PO daily. Weaning oxygen as tolerated, currently on 1L when awake, 3 L at night Full code Heparin subcu 8000 units daily Diabetic diet
[2024-07-16] VITALS: BP 100/44; PULSE 68; RESP 18; TEMP 36.6; O2SAT 96
[2024-07-16] MEDS: LINEZOLID 600 MG/300 ML IV.SOLN 300 MG IV ×2 (00:14→10:16)
[2024-07-16] MEDS: HEPARIN SODIUM 5,000 UNIT/ML VIAL 5000 UNIT SQ ×2 (00:14→08:08)
[2024-07-16] MEDS: OXYCODONE 5MG IMMEDIATE RELEASE TABLET 5 MG PO ×2 (00:22→08:08)
[2024-07-16 04:00] VITALS: BP 120/62; PULSE 60; RESP 16; TEMP 36.6; O2SAT 98; BMI 41.9
--- NOTE | 2024-07-16 04:21 | PC.NURSE ---
54 yo female remains A/O X 4. She complained of pain this shift, medicated with oxycodone which was effective. Antibiotics administered per NOV. Wound Vac in place draining mod amounts of bloody drainage. FSBS was 205 at 2100, Insulin per SS, see MAR. She has rested on and off throughout shift, 02 on at 3 liters. VSS for pt
[2024-07-16 06:15] LABS: POC Glucose,Bedside 131 (70-110)
--- NOTE | 2024-07-16 06:27 | P.PN_ITS ---
Subjective *Date: 07/16/24 *Time: 07:23 Interval history: Patient doing very well sitting up in bed eating breakfast this morning denies any nausea vomiting or diarrhea. Reporting some tenderness still in the heel mainly of her right surgical foot overall improving since yesterday. Patient will get new PICC line placed and be transferred to [facility] may be later today. Ortho Exam (Inpt) Vital signs and Labs for Last 24 Hours: Temp Pulse Resp BP Pulse Ox O2 Del Method O2 Flow Rate 97.9 F 60 16 120/62 98 Nasal Cannula 3 07/16/24 04:00 07/16/24 04:00 07/16/24 04:00 07/16/24 04:00 07/16/24 04:00 07/16/24 05:00 07/16/24 05:00 FiO2 8 07/13/24 19:07 Laboratory Results - last 24 hr 07/15/24 06:16: WBC 13.8 H, RBC 4.03 L, Hgb 12.2, Hct 37.0, MCV 91.9, MCH 30.2, MCHC 32.8, RDW 14.2, Plt Count 268, MPV 7.3 L, Neut % (Auto) 78.3, Lymph % (Auto) 15.5, [place] % (Auto) 5.7, Eos % (Auto) 0.3, Baso % (Auto) 0.3, Neut # (Auto) 10.8 H, Lymph # (Auto) 2.1, [place] # (Auto) 0.8, Eos # (Auto) 0.0, Baso # (Auto) 0.0, ESR 88 H, Sodium 132 L, Potassium 4.5, Chloride 91 L, Carbon Dioxide 38 H, Anion Gap 7.5, BUN 27 H, Creatinine 1.00, Estimated Creat Clear 60, Estimated GFR 58 L, Est GFR ( Amer) 70 D, Glucose 164 H, Calcium 9.0, Total Bilirubin 0.6, AST 24, ALT 12, Alkaline Phosphatase 96, C-Reactive Protein 116.2 H, Total Protein 7.2, Albumin 3.3 L, Globulin 3.9 H, Albumin/Globulin Ratio 0.8 L 07/15/24 16:30: POC Glucose 143 H 07/15/24 20:09: POC Glucose 205 H 07/16/24 06:08: POC Glucose 131 H I & O for Labs for Last 24 Hours: Intake & Output 07/13/24 07/14/24 07/15/24 07/16/24 23:59 23:59 23:59 23:59 Intake Total 2480 / 2480 2380 / 2380 900 / 900 Output Total 350 / 350 750 / 750 900 / 900 0 / 0 Balance 2130 / 2130 1630 / 1630 0 / 0 0 / 0 Weight 247 lb 6.4 oz 249 lb 9.6 oz 259 lb 6.4 oz 260 lb 14.4 oz Microbiology Reports for the Last 24 Hours: Microbiology 07/14/24 Unknown Foot,Right Gram Stain - Final 07/14/24 Unknown Foot,Right Abscess Culture - Preliminary NO GROWTH AFTER 24 HOURS Constitutional: Present no acute distress and cooperative Head: Present normocephalic Eyes: Present as per HPI Neck: Present trachea midline Respiratory: Present normal respiratory effort and able to speak in complete sentences Cardiac: Present posterior tibial pulses present and pedal pulses present Comments:: deferred Rectal (female): Present deferred (female): Present deferred Extremities: Present tenderness (surgical site, Right 5th met amputation, Partial fourth metatarsal resection with open bone biopsy Partial delayed primary closure Application of wound VAC), normal capillary refill and edema (edema improving ); Absent calf tenderness Muscle Strength (Extremity): Patient Baseline Skin: Present erythema (mild erythema noted to right plantar heel, improving from yesterday. ), warm, normal turgor and wounds (s/p 07/02/24 Right foot I&D, 5th ray amputation) Comment:: S/p 07/14/24:Right foot incision and drainage, Right foot wide excisional debridement of nonviable soft tissue/bone, Partial fourth, metatarsal resection with open bone biopsy, Partial delayed primary closure, Application of wound VAC. Neuro: Present oriented x 3 and moves all extremities Ankle: right: swelling (trace ankle edema ) Feet/Toes: right: swelling (trace pedal edema; 1+ today), right: tenderness (s/p Right 5th met, toe amputation, tender) and right: decreased ROM Assessment and Plan *Assessment and plan (1) Osteomyelitis: Status: Acute Qualifiers: Laterality: right Osteomyelitis location: foot Osteomyelitis type: unspecified type Qualified Code(s): M86.9 - Osteomyelitis, unspecified Category: Medical Code(s): M86.9 - Osteomyelitis, unspecified (2) Diabetic foot ulcer: Status: Acute Qualifiers: Diabetes mellitus type: type 2 Diabetic foot ulcer location: other Laterality: right Non-pressure ulcer stage: with necrosis of bone Qualified Code(s): E11.621 - Type 2 diabetes mellitus with foot ulcer; L97.514 - Non- pressure chronic ulcer of other part of right foot with necrosis of bone Category: Medical Code(s): E11.621 - Type 2 diabetes mellitus with foot ulcer; L97.509 - Non-pressure c hronic ulcer of other part of unspecified foot with unspecified severity (3) Diabetes: Status: Chronic Qualifiers: Diabetes mellitus complication status: with other specified complication 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: with parallel computing 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 use Diabetes mellitus type: type 2 Qualified Code(s): E11.69 - Type 2 diabetes mellitus with other specified complication Category: Medical Code(s): E11.9 - Type 2 diabetes mellitus without complications (4) Hypertension: Status: Chronic Qualifiers: Hypertension type: essential hypertension Qualified Code(s): I10 - Essential (primary) hypertension Category: Medical Code(s): I10 - Essential (primary) hypertension (5) Hypothyroidism: Status: Chronic Qualifiers: Hypothyroidism type: acquired Qualified Code(s): E03.9 - Hypothyroidism, unspecified Category: Medical Code(s): E03.9 - Hypothyroidism, unspecified (6) Depression: Status: Chronic Qualifiers: Depression Type: unspecified Qualified Code(s): F32.A - Depression, unspecified Category: Medical Code(s): F32.9 - Major depressive disorder, single episode, unspecified (7) Anxiety: Status: Chronic Category: Medical Code(s): F41.9 - Anxiety disorder, unspecified (8) Fibromyalgia: Status: Chronic Category: Medical Code(s): M79.7 - Fibromyalgia (9) Pre-ulcerative calluses: Status: Acute Category: Medical Code(s): L84 - Corns and callosities (10) Cellulitis of right foot: Status: Acute Category: Medical Code(s): L03.115 - Cellulitis of right lower limb (11) Decreased pedal pulses: Status: Acute Category: Medical Code(s): R09.89 - Other specified symptoms and signs involving the circulatory and respiratory systems (12) Soft tissue infection of foot: Status: Acute Category: Medical Code(s): L08.9 - Local infection of the skin and subcutaneous tissue, unspecified (13) Neuropathy: Status: Chronic Category: Medical Code(s): G62.9 - Polyneuropathy, unspecified (14) Onychoincurvatum: Status: Acute Category: Medical Code(s): L60.8 - Other nail disorders (15) Onychodystrophy: Status: Acute Category: Medical Code(s): L60.3 - Nail dystrophy (16) Keratosis: Status: Acute Category: Medical Code(s): L57.0 - Actinic keratosis (17) Diabetic foot ulcer: Status: Acute Qualifiers: Diabetes mellitus type: type 2 Diabetic foot ulcer location: heel Laterality: right Non-pressure ulcer stage: with other severity Qualified Code(s): E11.621 - Type 2 diabetes mellitus with foot ulcer; L97.418 - Non- pressure chronic ulcer of right heel and midfoot with other specified severity Category: Medical Code(s): E11.621 - Type 2 diabetes mellitus with foot ulcer; L97.509 - Non-pressure chronic ulcer of other part of unspecified foot with unspecified severity (18) Amputation of toe: Status: Acute Qualifiers: Laterality: right Qualified Code(s): S98.131A - Complete traumatic amputation of one right lesser toe, initial encounter Category: Medical Code(s): S98.139A - Complete traumatic amputation of one unspecified lesser toe, initial encounter (19) Status post amputation: Start date: 08/02/24 Problem Comment: Right fifth ray(metatarsal, toe) amputation for Osteomyelitis Status: Acute Category: Surgical Code(s): Z89.9 - Acquired absence of limb, unspecified (20) Acute osteomyelitis: Status: Acute Category: Medical Code(s): M86.10 - Other acute osteomyelitis, unspecified site Plan Patient is a 54-year-old female with past medical history of diabetes mellitus, diabetic neuropathy who presents to the hospital due to right foot pain as well as diabetic foot ulcer. 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 Patient reports pus discharge from ulcer as well as worsening pain 10/10 intensity constant, sharp. Patient otherwise denied chest pain shortness of breath nausea vomiting. Patient doing very well this morning eating breakfast denies any nausea fever through the night. White count seems to be trending down, blood cultures from over the weekend are showing no growth, foot is sore but improved. Surgeries: 07/02/24: S/p Right fifth ray (metatarsal, toe) amputation, Right foot incision and drainage, Right foot wide excisional debridement, Application of ARLINE drain Intraop Specimens: Right foot WCx: strep Agalactiae (Gent Rest) Right fifth metatarsal bone culture- Staphylococcus equorum, Methicillin Resistant Staphylococcus Right foot ulcer tissue culture-Staphylococcus epidermidis, Methicillin-R esistant Staphylococcus 07/14/24: S/p Right foot incision and drainage, wide excisional debridement of nonviable soft tissue/bone, Partial fourth metatarsal resection with open bone biopsy, Partial delayed primary closure, Application of wound VAC Intraop Specimens: pending Right foot Wcx, Right ulcer tissue cx, Right 4th met bone cx Right 4th met bone path, Right foot margin path 07/16/24: Patient was taken back to surgery 07/14/[address] scan over the weekend showing fluid collection and subcu gas concerning for reoccurrence of infection. Post Op day #2, S/p 07/14/24, Right foot incision and drainage, Right foot wide excisional debridement of nonviable soft tissue, bone, Partial fourth metatarsal resection with open bone biopsy, Partial delayed primary closure, Application of wound VAC Plan: Overall readiness, swelling and pain is better. Infection labs starting to trend down wbc 13.8-9.4, afebrile at 97.9 F Maintain dressing clean dry and intact. Wound VAC at 125 mmHg medium continuous. Plan for wound VAC changes twice weekly (Sun, ; starting 07/17/24). NWB to RLE in postop shoe with walker/wheelchair. Consult care management: For discharge planning, she will need wound VAC dressing changes, secure VAC with dry sterile dressing and abx mgmt. Concern over her compliance and recurrent infection. Recommend continuation of IV antibiotics until cultures finalized. Initial plan was for Zyvox and Levaquin x 14 days. Given her recurrent infection and new gas with new suspected osteomyelitis which necessitated return to the OR yesterday, will need to extend length of PICC line with IV antibiotics for 3 more weeks (08/04/24). Stand from Podiatry stand point for d/c transfer to [facility]. All orders per Dr. Ortiz *SNF Orders: -Wound vac to right foot wounds @125mmHg medium continuous. Plan to vac changes twice weekly (Sun/). -Plan for wound vac change starting on 07/17/24 then Sun07/21/24. -If vac has an issue that can not be trouble shoot immediately, remove and apply betadine gauze packing, dry 4x4, kerlix, joan wrap. -NWB to RLE in postop shoe with walker/wheelchair. -PICC, IV abx: abx x 3 more wks with weekly labs to monitor infection (cbc, cmp, esr, crp) faxed to PCP and Podiatry Dr Ortiz @[phone]. -Will continue to follow patient outpatient. -IV Zyvox 600mg q12h, Levo 750mg x3 wks (07/14-08/04/24). -Pain control per hospitalist. Needs f/u with PCP to manage detention meds, gabapentin. -F/u with Podiatry next week then weekly. Specimens:: Pending from surgery 07/14/24 Right foot Wcx Right ulcer tissue cx Right 4th met bone cx Right 4th met bone path Right foot margin path Results from surgery on 07/02/24 Wound cultures reveal gram-positive cocci, strep Agalactiae (Gentamicin Resistant) Right fifth metatarsal bone culture- Staphylococcus equorum, Methicillin Resistant Staphylococcus Right foot ulcer tissue culture-Staphylococcus epidermidis, Methicillin- Resistant Staphylococcus
[2024-07-16 06:37] LABS: Basophils # 0.1 K/mm3 (0-0.2); Basophils % 0.7 % (0.1-2.0); Eosinophils # 0.3 K/mm3 (0.0-0.4); Hematocrit 32.1 % (37.0-47.0); Lymphocytes # 2.5 K/mm3 (0.7-4.5); Lymphocytes % 26.1 % (10-50); Mean Corpuscular Volume 90.9 fl (81-99); Mean Platelet Volume 7.1 fl (7.4-10.4); Monocytes # 0.5 K/mm3 (0.1-1.0); Monocytes % 5.3 % (1.7-9.3); Neutrophils # 6.1 K/mm3 (1.8-7.8); Neutrophils % 64.9 % (37.0-80.0); Platelet Count 255 K/mm3 (142-424); Red Blood Count 3.53 M/mm3 (4.20-5.40); Red Cell Distribution Width 14.5 % (11.5-17.5); White Blood Count 9.4 K/mm3 (4.8-10.8)
[2024-07-16 06:55] LABS: Hemoglobin 10.6 g/dL (12.2-16.2)
[2024-07-16 07:09] LABS: C-Reactive Protein 90.6 mg/L (0-4)
[2024-07-16 07:47] VITALS: BP 123/63; PULSE 64; RESP 16; TEMP 36.7; O2SAT 95
[2024-07-16 08:08] LABS: Erythrocyte Sedimentation Rate 140 mm/hr (0-30)
[2024-07-16] MEDS: GABAPENTIN 800MG TABLET 800 MG PO ×2 (08:08→13:50)
[2024-07-16] MEDS: ISOSORBIDE MONO 30MG TAB.ER.24H 30 MG PO (08:08)
[2024-07-16] MEDS: FUROSEMIDE 80 MG TABLET PO (08:08)
[2024-07-16] MEDS: CARVEDILOL 25MG TABLET 25 MG PO (08:08)
[2024-07-16] MEDS: LISINOPRIL 2.5MG TABLET 2.5 MG PO (08:08)
[2024-07-16] MEDS: DULOXETINE 30MG CAPSULE.DR 60 MG PO (08:08)
[2024-07-16] MEDS: FENOFIBRATE 54MG TABLET 54 MG PO (08:08)
[2024-07-16] MEDS: CITALOPRAM 40MG TABLET 40 MG PO (08:08)
[2024-07-16] MEDS: METHOCARBAMOL 500MG TABLET 1000 MG PO ×2 (08:08→13:51)
[2024-07-16] MEDS: METHIMAZOLE 10 MG 0.25 EACH PO (08:09)
[2024-07-16] MEDS: levoFLOXacin 750 MG TABLET PO (11:04)
[2024-07-16] MEDS: humaLOG 100 UNITS/ML 10ML VIAL (SSI) SQ (11:10)
[2024-07-16 11:18] LABS: POC Glucose,Bedside 185 (70-110)
[2024-07-16 12:00] VITALS: BP 109/64; PULSE 69; RESP 16; TEMP 36.7; O2SAT 96
--- NOTE | 2024-07-16 13:09 | P.DS_ITS ---
General Admission date:: 07/01/24 Hospital Course Hospital Course Hospital Course: Patient is a 54-year-old female with past medical history of diabetes mellitus, diabetic neuropathy who presents to the hospital due to right foot pain as well as diabetic foot ulcer. 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 Patient reports pus discharge from ulcer as well as worsening pain 10/10 intensity constant, sharp. Patient otherwise denied chest pain shortness of breath nausea vomiting diarrhea constipation dysuria fevers and chills. Status post I&D with amputation of fifth metatarsal of right foot. Has developed fever over the past 24 hours. Podiatry to reevaluate in the morning. Continues to require inpatient management. Due to worsening condition over the weekend, will go back to OR for revision. CT per my review concerning for fluid collection and gas. Problems addressed as follows: #Acute on chronic osteomyelitis of right foot #Right foot cellulitis #Right diabetic foot, with peripheral neuropathy ? Patient stated she has had a right foot ulcer for the past few months, getting worse over the past week prior to admission. Initial CT of the foot revealed acute on chronic osteomyelitis, CRP and ESR also significantly elevated. Surgeries: 07/02/24: S/p Right fifth ray (metatarsal, toe) amputation, Right foot incision and drainage, Right foot wide excisional debridement, Application of ARLINE drain Intraop Specimens: Right foot WCx: strep Agalactiae (Gent Rest) Right fifth metatarsal bone culture- Staphylococcus equorum, Methicillin Resistant Staphylococcus Right foot ulcer tissue culture-Staphylococcus epidermidis, Methicillin- Resistant Staphylococcus Patient was taken back to surgery 07/14/[address] scan over the weekend showing fluid collection and subcu gas concerning for reoccurrence of infection. 07/14/24: S/p Right foot incision and drainage, wide excisional debridement of nonviable soft tissue/bone, Partial fourth metatarsal resection with open bone biopsy, Partial delayed primary closure, Application of wound VAC Intraop Specimens: pending Right foot Wcx, Right ulcer tissue cx, Right 4th met bone cx Right 4th met bone path, Right foot margin path Post Op day #2, S/p 07/14/24, Right foot incision and drainage, Right foot wide excisional debridement of nonviable soft tissue, bone, Partial fourth metatarsal resection with open bone biopsy, Partial delayed primary closure, Application of wound VAC ? ARLINE drain in place with some bloody discharge. ? IV Zyvox 600 mg twice daily, p.o. levofloxacin 750 mg daily. End date 08/04/2024, total of 4 weeks of therapy. - Continue gabapentin to 800mg TID; oxycodone 5 mg BID as needed for severe breakthrough pain. Monitor for toxicity. Requiring at least 2 doses daily for pain. - WBC resolved to 9.4 from 13.8 yesterday. SNF Orders: -Wound vac to right foot wounds @125mmHg medium continuous. Plan to vac changes twice weekly (Sun/). -Plan for wound vac change starting on 07/17/24 then Sun07/21/24. -If vac has an issue that can not be trouble shoot immediately, remove and apply betadine gauze packing, dry 4x4, kerlix, joan wrap. -NWB to RLE in postop shoe with walker/wheelchair. -PICC, IV abx: abx x 3 more wks with weekly labs to monitor infection (cbc, cmp, esr, crp) faxed to PCP and Podiatry Dr Ortiz @[phone]. -Will continue to follow patient outpatient. -IV Zyvox 600mg q12h, Levo 750mg x3 wks (07/14-08/04/24). -Pain control per hospitalist. Needs f/u with PCP to manage manager terminal meds, gabapentin. -F/u with Podiatry next week then weekly. #Infiltrated PICC line ? On 07/15/2024, there was some purulent like discharge from PICC line insertion site. Blood cultures were obtained from PICC line, currently pending. Will notify SNF if they return positive results. ? We recommend not placing PICC line for the next 24 hours pending catheter tip cultures. Diabetes mellitus ? Hemoglobin A1c 7.0 during admission. ? LDSSI, ACHS glucose checks. ? Lantus 15 units nightly. Chronic medical conditions Hypertension Hypothyroidism Depression Hyperlipidemia Restless leg syndrome -Continue coreg, lisinopril, ropinirole, methimazole, Protonix, trazodone, duloxetine, Imdur, Lasix Exam Data for Last 24 hours Vital signs and Labs for Last 24 Hours: Temp Pulse Resp BP Pulse Ox O2 Del Method O2 Flow Rate 98.1 F 64 16 123/63 95 Room Air 3 07/16/24 07:47 07/16/24 07:47 07/16/24 07:47 07/16/24 07:47 07/16/24 07:47 07/16/24 11:00 07/16/24 06:51 FiO2 8 07/13/24 19:07 Laboratory Results - last 24 hr 07/15/24 16:30: POC Glucose 143 H 07/15/24 20:09: POC Glucose 205 H 07/16/24 05:51: WBC 9.4 D, RBC 3.53 L, Hgb 10.6 L D, Hct 32.1 L, MCV 90.9, MCH 30.0, MCHC 33.0, RDW 14.5, Plt Count 255, MPV 7.1 L, Neut % (Auto) 64.9, Lymph % (Auto) 26.1, [place] % (Auto) 5.3, Eos % (Auto) 3.0, Baso % (Auto) 0.7, Neut # (Auto) 6.1, Lymph # (Auto) 2.5, [place] # (Auto) 0.5, Eos # (Auto) 0.3, Baso # (Auto) 0.1, ESR 140 H, C-Reactive Protein 90.6 H 07/16/24 06:08: POC Glucose 131 H 07/16/24 11:03: POC Glucose 185 H I & O for Last 24 hours: Intake & Output 07/13/24 07/14/24 07/15/24 07/16/24 23:59 23:59 23:59 23:59 Intake Total 2480 / 3020 2380 / 2380 900 / 900 200 / 200 Output Total 350 / 350 750 / 1200 900 / 900 0 / 0 Balance 2130 / 2670 1630 / 1180 0 / 0 200 / 200 Weight 112.219 kg 113.217 kg 117.662 kg 118.342 kg Microbiology Reports for the Last 24 Hours: Microbiology 07/14/24 Unknown Foot,Right Gram Stain - Final 07/14/24 Unknown Foot,Right Abscess Culture - Preliminary NO GROWTH AFTER 24 HOURS Constitutional Constitutional: no acute distress *Routine HEENT Exam Head: Present normocephalic Eye: Present EOMI and PERRL ENT: Present mucous membranes moist *Routine Neck Exam Neck: Present supple; Absent lymphadenopathy *Routine Respiratory Exam Respiratory: Present CTA bilaterally *Routine Cardiovascular Exam Cardiovascular: Present RRR *Routine Abdominal Exam Abdominal: Present soft and normoactive bowel sounds; Absent tenderness *Routine Extremities Exam Extremities: Absent cyanosis, clubbing or edema Comments: Right foot dressed s/p debridement and amputation. ARLINE drain in place with minimal bloody discharge. *Routine Skin Exam Skin: Present warm; Absent rash *Routine Neurological Exam Neurological: Present alert and oriented X3 Results Data Completed and Pending Labs on day of discharge: Labs from last 24 hours 07/16/24 07/16/24 07/16/24 11:03 06:08 05:51 WBC 9.4 D RBC 3.53 L Hgb 10.6 L D Hct 32.1 L MCV 90.9 MCH 30.0 MCHC 33.0 RDW 14.5 Plt Count 255 MPV 7.1 L Neut % (Auto) 64.9 Lymph % (Auto) 26.1 [place] % (Auto) 5.3 Eos % (Auto) 3.0 Baso % (Auto) 0.7 Neut # (Auto) 6.1 Lymph # (Auto) 2.5 [place] # (Auto) 0.5 Eos # (Auto) 0.3 Baso # (Auto) 0.1 ESR 140 H POC Glucose 185 H 131 H C-Reactive Protein 90.6 H 07/15/24 07/15/24 20:09 16:30 WBC RBC Hgb Hct MCV MCH MCHC RDW Plt Count MPV Neut % (Auto) Lymph % (Auto) [place] % (Auto) Eos % (Auto) Baso % (Auto) Neut # (Auto) Lymph # (Auto) [place] # (Auto) Eos # (Auto) Baso # (Auto) ESR POC Glucose 205 H 143 H C-Reactive Protein Preliminary micro results at discharge 07/14/24 Unknown Abscess Culture - Preliminary Foot,Right NO GROWTH AFTER 24 HOURS 07/12/24 16:45 Blood Culture - Preliminary Blood NO GROWTH AFTER 48 HOURS 07/12/24 16:35 Blood Culture - Preliminary Blood NO GROWTH AFTER 48 HOURS DS: Diagnosis Discharge Diagnosis (1) Osteomyelitis: Status: Acute Code(s): M86.9 - Osteomyelitis, unspecified Qualifiers: Laterality: right Osteomyelitis location: foot Osteomyelitis type: unspecified type Qualified Code(s): M86.9 - Osteomyelitis, unspecified (2) Diabetic foot ulcer: Status: Acute Code(s): E11.621 - Type 2 diabetes mellitus with foot ulcer; L97.509 - Non-pressure chronic ulcer of other part of unspecified foot with unspecified severity Qualifiers: Diabetes mellitus type: type 2 Diabetic foot ulcer location: other Laterality: right Non-pressure ulcer stage: with necrosis of bone Qualified Code(s): E11.621 - Type 2 diabetes mellitus with foot ulcer; L97.514 - Non- pressure chronic ulcer of other part of right foot with necrosis of bone (3) Diabetes: Status: Chronic Code(s): E11.9 - Type 2 diabetes mellitus without complications Qualifiers: Diabetes mellitus complication status: with other specified complication Diabetes mellitus assisted insulin use: with manager terminal use Diabetes mellitus type: type 2 Qualified Code(s): E11.69 - Type 2 diabetes mellitus with other specified complication (4) Hypertension: Status: Chronic Code(s): I10 - Essential (primary) hypertension Qualifiers: Hypertension type: essential hypertension Qualified Code(s): I10 - Essential (primary) hypertension (5) Hypothyroidism: Status: Chronic Code(s): E03.9 - Hypothyroidism, unspecified Qualifiers: Hypothyroidism type: acquired Qualified Code(s): E03.9 - Hypothyroidism, unspecified (6) Depression: Status: Chronic Code(s): F32.9 - Major depressive disorder, single episode, unspecified Qualifiers: Depression Type: unspecified Qualified Code(s): F32.A - Depression, unspecified (7) Anxiety: Status: Chronic Code(s): F41.9 - Anxiety disorder, unspecified (8) Fibromyalgia: Status: Chronic Code(s): M79.7 - Fibromyalgia (9) Pre-ulcerative calluses: Status: Acute Code(s): L84 - Corns and callosities (10) Cellulitis of right foot: Status: Acute Code(s): L03.115 - Cellulitis of right lower limb (11) Decreased pedal pulses: Status: Acute Code(s): R09.89 - Other specified symptoms and signs involving the circulatory and respiratory systems (12) Soft tissue infection of foot: Status: Acute Code(s): L08.9 - Local infection of the skin and subcutaneous tissue, unspecified (13) Neuropathy: Status: Chronic Code(s): G62.9 - Polyneuropathy, unspecified (14) Onychoincurvatum: Status: Acute Code(s): L60.8 - Other nail disorders (15) Onychodystrophy: Status: Acute Code(s): L60.3 - Nail dystrophy (16) Keratosis: Status: Acute Code(s): L57.0 - Actinic keratosis (17) Amputation of toe: Status: Acute Code(s): S98.139A - Complete traumatic amputation of one unspecified lesser toe, initial encounter Qualifiers: Laterality: right Qualified Code(s): S98.131A - Complete traumatic amputation of one right lesser toe, initial encounter (18) Status post amputation: Status: Acute Code(s): Z89.9 - Acquired absence of limb, unspecified Problem details: Right fifth ray(metatarsal, toe) amputation for Osteomyelitis (19) Acute osteomyelitis: Status: Acute Code(s): M86.10 - Other acute osteomyelitis, unspecified site Meds Home Medications and Allergies Home Medications ?Medication ?Instructions ?Recorded ?Confirmed ?Type flash glucose sensor 05/04/22 07/06/24 History flash glucose scanning reader 08/14/22 07/06/24 History ([employer] Joelle 14 Day [place]) carvedilol 25 mg tablet 25 mg PO BID High blood pressure 02/15/23 07/01/24 Rx 90 days #180 tabs duloxetine 60 mg capsule,delayed 60 mg PO DAILY MOOD #90 caps 02/15/23 07/01/24 Rx release fenofibrate 54 mg tablet 54 mg PO DAILY Cholesterol #90 tabs 02/15/23 07/01/24 Rx insulin glargine 100 unit/mL (3 10 unit (0.1 mL) SQ HS Diabetes 02/15/23 07/01/24 Rx mL) subcutaneous pen #15 mL lisinopril 2.5 mg tablet 2.5 mg PO DAILY Hypertension #90 02/15/23 07/01/24 Rx tabs methocarbamol 1,000 mg tablet 1,000 mg PO TID muscle spasms #90 04/16/23 07/01/24 Rx tabs semaglutide 1 mg/dose (4 mg/3 mL) 2 mg SQ WEEKLY Diabetes 04/16/23 07/02/24 History subcutaneous pen injector flash glucose sensor ([employer] #1 ea 06/15/23 07/06/24 Rx Joelle 14 Day Sensor kit) furosemide 40 mg tablet 40 mg PO BID 07/02/24 07/02/24 History hydroxyzine pamoate 25 mg capsule 25 mg PO TID PRN Panic Disorder 07/02/24 07/02/24 History isosorbide dinitrate 30 mg tablet 30 mg PO BID 07/02/24 07/02/24 History methimazole 5 mg tablet 2.5 mg PO DAILY 07/02/24 07/02/24 History pantoprazole 40 mg tablet,delayed 40 mg PO DAILY 07/02/24 07/02/24 History release ropinirole 3 mg tablet 3 mg PO HS 07/02/24 07/02/24 History tizanidine 4 mg tablet 4 mg PO BID PRN Myalgia 07/02/24 07/02/24 History trazodone 150 mg tablet 150 mg PO HS 07/02/24 07/02/24 History citalopram 40 mg tablet 40 mg PO DAILY 30 days #0 tabs 07/16/24 Rx gabapentin 800 mg tablet 800 mg PO TID 30 days #0 tabs 07/16/24 Rx New Prescriptions to Start Prescriptions: Allergies Allergy/AdvReac Type Severity Reaction Status Date / Time ceftriaxone [From ROCEPHIN] Allergy Unknown Verified 01/23/24 14:56 droperidol [From INAPSINE] Allergy Unknown Verified 01/23/24 14:56 ibuprofen [IBUPROFEN] Allergy Unknown Verified 01/23/24 14:56 moxifloxacin [From AVELOX] Allergy Unknown Verified 01/23/24 14:56 Discharge Plan Disposition Patient Disposition: er SNF Condition: Fair Discharge Order Discharge Orders: Discharge Order (Routine); Ordered 07/16/24 Ordered By: Celso Rolon Follow up Plan Follow up with: Linn Montana APRN [Primary Care Provider] - Enter time for follow up Moira Ortiz DPM [Staff Physician] - 07/21/24 11:15 am (next appointment saturday 07/28 at 11:15 next appointment saturday 08/04 at 11:15) Prescriptions/Medication Reconciliation: New citalopram 40 mg Tablet 40 mg PO DAILY 30 Days Qty: 0 0RF gabapentin 800 mg Tablet 800 mg PO TID 30 Days Qty: 0 0RF Continued insulin glargine 100 unit/mL (3 mL) insulin pen 10 unit SQ HS Qty: 15 2RF carvedilol 25 mg tablet 25 mg PO BID 90 Days Qty: 180 2RF duloxetine 60 mg capsule,delayed release(DR/EC) 60 mg PO DAILY Qty: 90 2RF fenofibrate 54 mg tablet 54 mg PO DAILY Qty: 90 2RF lisinopril 2.5 mg tablet 2.5 mg PO DAILY Qty: 90 2RF (DME) FreeStyle Joelle 14 Day Sensor Kit See Rx Instructions .ROUTE .COMPLEX Qty: 1 0RF Dose Instruction: DIRECTED Rx Instructions: DIRECTED (DME) flash glucose sensor 1 EACH kit See Rx Instructions .Route CONT Rx Instructions: change sensor every 14 days (DME) FreeStyle Joelle 14 Day [place] Misc See Rx Instructions .Route Rx Instructions: As directed furosemide 40 mg tablet 40 mg PO BID Patient Comments: TAKE ONE TABLET BY MOUTH TWICE DAILY FOR 90 DAYS ropinirole 3 mg tablet 3 mg PO HS Patient Comments: TAKE ONE TABLET BY MOUTH NIGHTLY AT BEDTIME trazodone 150 mg tablet 150 mg PO HS Patient Comments: TAKE ONE TABLET BY MOUTH NIGHTLY AT BEDTIME pantoprazole 40 mg tablet,delayed release (DR/EC) 40 mg PO DAILY tizanidine 4 mg tablet 4 mg PO BID PRN (Reason: Myalgia) Patient Comments: TAKE ONE TABLET BY MOUTH TWICE DAILY NEEDED FOR 30 DAYS isosorbide dinitrate 30 mg tablet 30 mg PO BID Patient Comments: TAKE ONE TABLET BY MOUTH TWICE DAILY FOR 90 DAYS methimazole 5 mg tablet 2.5 mg PO DAILY Patient Comments: TAKE 1/2 TABLET BY MOUTH EVERY DAY hydroxyzine pamoate 25 mg capsule 25 mg PO TID PRN (Reason: Panic Disorder) Patient Comments: Take 1 capsule 3 times a day by oral route as needed for 30 days. methocarbamol 1,000 mg tablet 1,000 mg PO TID Qty: 90 2RF semaglutide 1 mg/dose (4 mg/3 mL) pen injector 2 mg SQ WEEKLY Discontinued escitalopram oxalate 20 mg tablet 20 mg PO DAILY Qty: 90 2RF gabapentin 400 mg capsule 400 mg PO TID Humulin 70/30 U-100 KwikPen 100 unit/mL (70-30) insulin pen 60 unit SQ BID Problem Reconciliation Problems Reviewed?: Yes Patient Discharge Instructions ACTIVITY: Limited activity DIET: continue same diet Additional Instructions: non weight bearing on right foot Patient Instructions: Diabetic Foot Ulcer, DI for Osteomyelitis, DI for Surgical Site Infection, Peripherally Inserted Central Catheter Infections, DI for Incision and Drainage Print Language: Maltese Providers Primary Care Provider: Linn Montana Provider: Celso Rolon Attending Provider: Celso Rolon
[2024-07-18 11:32] LABS: POC Glucose,Bedside 177 (70-110)
[2024-07-18 11:33] LABS: POC Glucose,Bedside 150 (70-110)
[2024-07-18 11:34] LABS: POC Glucose,Bedside 149 (70-110)
[2024-07-18 11:34] LABS: POC Glucose,Bedside 236 (70-110)
== END 2024-07-16 15:31 | disposition swing bed (61) | DRG 617 ==
LOC: ER 20:34 → 2ND 20:36
PROVIDERS: Internal Medicine; Internal Medicine Adolescent Medicine; Nurse Practitioner; Physician Assistant; Podiatrist; Admitting Provider Student in an Organized Health Care Education/Training Program; Emergency Provider Emergency Medicine; PCP Nurse Practitioner; Visit Provider Student in an Organized Health Care Education/Training Program
PROC: 0Y6X0Z0 Detachment at Right 5th Toe, Complete, Open Approach (ICD-10-PCS; principal; 2024-07-02 12:50)
PROC: 0KBV0ZZ Excision of Right Foot Muscle, Open Approach (ICD-10-PCS; principal; 2024-07-14 14:30)
DX: L03.115 Cellulitis of right lower limb; L97.418 Non-pressure chronic ulcer of right heel and midfoot with other specified severity; M86.671 Other chronic osteomyelitis, right ankle and foot; E11.621 Type 2 diabetes mellitus with foot ulcer; L97.509 Non-pressure chronic ulcer of other part of unspecified foot with unspecified severity; L97.514 Non-pressure chronic ulcer of other part of right foot with necrosis of bone; I10 Essential (primary) hypertension; E03.9 Hypothyroidism, unspecified; M86.171 Other acute osteomyelitis, right ankle and foot; F32.A Depression, unspecified; F41.9 Anxiety disorder, unspecified; M79.7 Fibromyalgia; L84 Corns and callosities; R09.89 Other specified symptoms and signs involving the circulatory and respiratory systems; L08.9 Local infection of the skin and subcutaneous tissue, unspecified; G62.9 Polyneuropathy, unspecified; L60.3 Nail dystrophy; L57.0 Actinic keratosis; F17.210 Nicotine dependence, cigarettes, uncomplicated; Z79.899 Other long term (current) drug therapy; E11.69 Type 2 diabetes mellitus with other specified complication; Z79.4 Long term (current) use of insulin; I89.0 Lymphedema, not elsewhere classified; E66.01 Morbid (severe) obesity due to excess calories; M54.9 Dorsalgia, unspecified; G89.29 Other chronic pain; E11.40 Type 2 diabetes mellitus with diabetic neuropathy, unspecified; E11.9 Type 2 diabetes mellitus without complications
CPT/HCPCS: 28810; 36410; 36415; 36569; 71045; 73630; 73700; 73701; 80048; 80053; 80076; 80202; 82803; 82962; 83036; 83605; 83735; 84145; 85025; 85651; 86140; 86803; 87040; 87070; 87075; 87077; 87186; 87205; 87389; 88304; 88305; 88311; 93923; 94660; 94761; 97110; 97163; 97165; 97530; 97535; 97597; 99291; C1751; J0131; J1100; J1171; J1580; J1644; J1956; J2020; J2250; J2270; J2405; J2543; J3010; J3370; J7120; Q9967

== ENCOUNTER 2024-07-28 12:24 | Day surgery (SDC) | payer MEDICARE, OTHER, SELFPAY ==
[2024-07-28 13:15] VITALS: BP 127/60; PULSE 55; RESP 16; O2SAT 95; BMI 38.4
[2024-07-28 13:34] VITALS: BP 127/60; PULSE 55; RESP 18; O2SAT 95
[2024-07-28 13:37] VITALS: BP 127/60; PULSE 55; RESP 18; O2SAT 95
[2024-07-28 13:45] VITALS: BP 127/47; PULSE 55; RESP 16; O2SAT 98
--- NOTE | 2024-07-28 14:13 | EXP.PAIN.PRO ---
Procedure Date: 07/28/24 Time: 14:00 Anesthesiologist:: Renae Rey APRN Complications:: None Pre-procedure Diagnosis:: Degenerative disc disease of lumbar spine with lumbar radiculopathy symptoms Post-procedure Diagnosis:: Same Indications for Procedure:: Patient is a pleasant 54-year-old female who presents today for intrathecal refill and reprogram. Today she rates her pain an 8 out of 10. Patient states the pain is all in her back as well as her right foot related to debridements of an area of osteomyelitis done by Dr. Ortiz. Patient states that she ended up having her first surgery back at the beginning of July and has her to remove a toe and then it progressed on. Patient states that she did see Dr. Ruth today and that she did say that it was healing and that she has her wound VAC still in place. Patient has been recovering at [facility]. Patient is currently managed with Dilaudid 20 mg/mL and bupivacaine 10 mg/mL with a daily dose of 10.6 mg/day of the Dilaudid and 5.3 mg of the bupivacaine. She denies any side effects of this medication. Patient did unfortunately have her pump run dry. Her Sukhjinder has been reviewed and is appropriate. Physical Exam: General: Alert and oriented x3, no acute distress, pleasant and cooperative Lungs: Respirations even and unlabored, symmetrical chest expansion Eyes: PERRL Musculoskeletal: Flexion and extension of lumbar [spine] somewhat guarded secondary to pain, [antalgic gait noted] Neurological: Speech clear, no gross sensory deficit Procedure Details:: Informed consent was obtained and the risk and benefits of the procedure were explained to the patient. Patient was taken to the procedure room where noninvasive monitoring was placed including noninvasive blood pressure cuff and pulse oximeter. Patient's pump was interrogated and was reprogrammed to Dilaudid 8 mg/day and bupivacaine 4 mg/day. The patient tolerated the procedure well with no complications. Plan and Disposition:: Patient tolerated her intrathecal refill and reprogram with no complications. We did decrease her down to 8 mg/day of the Dilaudid. Patient is still in a swing bed at [facility] and is unsure how long she will be there. They have been doing Percocet 10 mg due to her pump running dry. I have counseled the patient that we will reach out to the hospital and let them know that they can go back to Percocet 5 mg. Patient acknowledges understanding. Patient will return to clinic on or before August 25 for her next intrathecal refill and reprogram. We will see the patient back in the clinic at the next intrathecal refill. Patient has been instructed to contact the clinic with any concerns before the next appointment. Dr. Goddard has reviewed this note and agrees with this plan of care. This note was dictated using voice recognition software and make contain errors or omissions. -- It Is medically necessary for this patient to continue to have their intrathecal pump refilled at regular intervals. This patient had an intrathecal pain pump implanted after meeting criteria of chronic intractable pain for greater than 3 months and failing conservative treatments. Patient has committed and been compliant to the treatment plan and all planned follow up care. Since implantation of the intrathecal pain pump, the patient has had decreased pain and been more functional. Oral medications have been reduced including intake of oral opioids. Patient continues to do well with intrathecal therapy with decrease in pain symptoms and increase in functional status. Stopping intrathecal medications can lead to life threatening withdrawal, seizures, cardiac arrest, severe pain, and possible . Pumps that are not refilled at regular intervals can be damages and cause and need for replacement. We continually titrate dose and concentration to optimize pain relief and function. We are limited in concentration for certain drugs to safely deliver medications through the pump and stay within the recommendations from the Polyanalges[employer] Consensus Committee Guidelines. Depending on dose and concentration these pumps may need to be refilled sooner than 3 months as we titrate.
== END 2024-07-28 13:55 | disposition home or self-care (01) ==
PROVIDERS: PCP Nurse Practitioner; Visit Provider Nurse Practitioner Family
DX: M51.16 Intervertebral disc disorders with radiculopathy, lumbar region (principal)
CPT/HCPCS: 62370

== ENCOUNTER 2024-08-04 12:29 | Outpatient (CLI) | payer MEDICARE, OTHER, SELFPAY ==
--- NOTE | 2024-08-04 12:34 | XR_ITS ---
PROCEDURE INFORMATION: Exam: XR Right Foot Complete; Alignment Exam date and time: 08/04/2024 12:56 PM Age: 54 years old Clinical indication: Pain; Foot; Right; Prior surgery; Surgery date: 3-7 days post-operative; Surgery type: Amp; Additional info: Foot pain TECHNIQUE: Imaging protocol: Radiologic exam of the right foot. Views: 3 or more views. COMPARISON: CR XR FOOT RT MIN 3V 07/14/2024 5:39 PM FINDINGS: Tubes, catheters and devices: Drainage tube in the lateral aspect of the foot. Bones/joints: Status post resection of the 5th toe and 5th metatarsal and proximal aspect of the 4th metatarsal . Soft tissues: Soft tissue swelling laterally in the surgical bed.. IMPRESSION: 1. Status post resection of the 5th toe and 5th metatarsal and proximal aspect of the 4th metatarsal . 2. Soft tissue swelling laterally in the surgical bed.. 3. Drainage tube in the lateral aspect of the foot.
== END 2024-08-04 23:59 | disposition home or self-care (01) ==
LOC: RAD 12:30
PROVIDERS: PCP Nurse Practitioner; Visit Provider Podiatrist
DX: M79.671 Pain in right foot (principal); M79.672 Pain in left foot
CPT/HCPCS: 73630

== ENCOUNTER 2024-08-19 10:50 | Day surgery (SDC) | payer MEDICARE, OTHER, SELFPAY ==
[2024-08-19 11:19] VITALS: BP 125/58; PULSE 62; RESP 16; TEMP 36.6; O2SAT 93; BMI 39.2
[2024-08-19 11:33] VITALS: BP 148/52; PULSE 63; RESP 18; O2SAT 95
[2024-08-19 11:35] VITALS: BP 148/52; PULSE 63; RESP 18; O2SAT 95
[2024-08-19 11:48] VITALS: BP 122/48; PULSE 60; RESP 16; O2SAT 91
--- NOTE | 2024-08-19 11:50 | EXP.PAIN.PRO ---
Procedure Date: 08/19/24 Time: 11:50 Anesthesiologist:: Niraj Rodriguez CRNA Complications:: None Pre-procedure Diagnosis:: Degenerative disc lumbar spine multilevels. Lumbar radiculopathy. Chronic wound right foot. Lumbar postlaminectomy syndrome. Post-procedure Diagnosis:: Same. Indications for Procedure:: Patient is a pleasant 54-year-old female who comes our clinic today for intrathecal pain pump interrogation and refill. She is currently being managed with hydromorphone 20 mg/mL at 8 mg/day. Also bupivacaine 10 mg/mL at 4 mg/day. She is doing very well with her current settings. She continues on oral narcotics due to open wound healing by third intention of the right foot. She continues with wound VAC therapy at this time. She rates her pain 4/10. Procedure Details:: Details of the procedure explained to the patient. The patient taken procedure room placed in sitting position. They over the pumps cleansed using chlorhexidine as a cleansing solution. The pump was interrogated. The pump was accessed with ease using a 22-gauge inch and half needle. 9 mL of solution was withdrawn discarded appropriate. The pump was then filled 20 cc of solution containing hydromorphone 20 mg/mL and bupivacaine 10 mg/mL. No change in pump rate. Patient tolerated procedure without difficulty. No complications. Plan and Disposition:: Patient was discharged without incident.
== END 2024-08-19 11:48 | disposition home or self-care (01) ==
PROVIDERS: PCP Nurse Practitioner; Visit Provider Nurse Anesthetist, Certified Registered
DX: M51.16 Intervertebral disc disorders with radiculopathy, lumbar region (principal); M96.1 Postlaminectomy syndrome, not elsewhere classified; S91.301A Unspecified open wound, right foot, initial encounter
CPT/HCPCS: 95991

== ENCOUNTER 2024-08-25 12:24 | Outpatient (CLI) | payer MEDICARE, OTHER, SELFPAY ==
--- NOTE | 2024-08-25 12:43 | XR_ITS ---
FINAL REPORT CLINICAL HISTORY: Foot pain COMPARISON: 07/03/2024 FINDINGS: AP, oblique and lateral views of the right foot were obtained. There is no acute fracture or dislocation. There has been resection of the proximal half of the fourth metatarsal. Postoperative changes from prior fifth metatarsal and fifth toe amputation is stable. The bones are osteopenic. No convincing bone destruction is identified. There is mild soft tissue edema. IMPRESSION: Postsurgical change as above. Reviewed, Interpreted and Dictated by Valentina Lopes MD Transcribed by Vida Rodriguez Authenticated and [facility]
[2024-08-25 13:23] LABS: Basophils # 0.1 K/mm3 (0-0.2); Basophils % 0.6 % (0.1-2.0); Eosinophils # 0.4 K/mm3 (0.0-0.4); Eosinophils % 3.7 % (0.1-12.0); Hematocrit 38.3 % (37.0-47.0); Hemoglobin 13.1 g/dL (12.2-16.2); Lymphocytes % 20.9 % (10-50); Mean Corpuscular HGB Conc 34.2 g/dL (31.8-35.4); Mean Corpuscular Hemoglobin 30.8 pg (27.0-31.2); Mean Corpuscular Volume 90.1 fl (81-99); Mean Platelet Volume 8.1 fl (7.4-10.4); Monocytes # 0.7 K/mm3 (0.1-1.0); Monocytes % 7.1 % (1.7-9.3); Neutrophils # 6.4 K/mm3 (1.8-7.8); Neutrophils % 67.6 % (37.0-80.0); Platelet Count 248 K/mm3 (142-424); Red Blood Count 4.25 M/mm3 (4.20-5.40); Red Cell Distribution Width 15.9 % (11.5-17.5); White Blood Count 9.5 K/mm3 (4.8-10.8)
[2024-08-25 13:42] LABS: Albumin Level 3.6 g/dl (3.5-5.0); Chloride 100 mmol/L (98-107); Potassium 4.8 mmoL/L (3.5-5.1); Sodium 138 mmol/L (136-145)
[2024-08-25 13:44] LABS: Alanine Aminotransferase 17 U/L (12-78); Anion Gap 10.8 mEq/L (5-15); Aspartate Amino Transferase 24 U/L (14-36); Blood Urea Nitrogen 17 mg/dl (7-17); Carbon Dioxide 32 mmol/L (22.0-30.0); Estimated Glomerular Filt Rate 74 ml/min (>60); GFR (African American) 90 ML/MIN (>60)
[2024-08-25 13:45] LABS: Alkaline Phosphatase 168 U/L (38-126); Bilirubin,Total 0.5 mg/dl (0.2-1.3); Calcium 9.1 mg/dl (8.4-10.2); Globulin 3.6 g/dL (1.3-3.2); Glucose 152 mg/dl (74-100); Total Protein,Serum 7.2 g/dl (6.3-8.2)
[2024-08-25 13:50] LABS: C-Reactive Protein 51.2 mg/L (0-4)
[2024-08-25 14:29] LABS: Hemoglobin A1C 6.3 % (4.0-6.0)
[2024-08-25 15:10] LABS: Erythrocyte Sedimentation Rate 57 mm/hr (0-30)
== END 2024-08-25 23:59 | disposition home or self-care (01) ==
LOC: LAB 12:26
PROVIDERS: PCP Nurse Practitioner; Visit Provider Podiatrist
DX: E11.9 Type 2 diabetes mellitus without complications (principal); R60.9 Edema, unspecified; M79.671 Pain in right foot
CPT/HCPCS: 36415; 73630; 80053; 83036; 85025; 85651; 86140

== ENCOUNTER 2024-09-11 11:45 | Day surgery (SDC) | payer MEDICARE, OTHER, SELFPAY ==
[2024-09-11 11:52] VITALS: BMI 39.2
[2024-09-11 12:03] VITALS: BP 162/67; PULSE 77; RESP 22; TEMP 36.5; O2SAT 92
[2024-09-11 12:15] LABS: Basophils # 0.1 K/mm3 (0-0.2); Basophils % 1.1 % (0.1-2.0); Eosinophils # 0.4 K/mm3 (0.0-0.4); Eosinophils % 4.1 % (0.1-12.0); Hematocrit 43.9 % (37.0-47.0); Hemoglobin 14.6 g/dL (12.2-16.2); Lymphocytes # 1.7 K/mm3 (0.7-4.5); Lymphocytes % 20.2 % (10-50); Mean Corpuscular HGB Conc 33.2 g/dL (31.8-35.4); Mean Corpuscular Hemoglobin 29.6 pg (27.0-31.2); Mean Corpuscular Volume 89.2 fl (81-99); Mean Platelet Volume 8.3 fl (7.4-10.4); Monocytes # 0.6 K/mm3 (0.1-1.0); Neutrophils # 5.8 K/mm3 (1.8-7.8); Neutrophils % 67.6 % (37.0-80.0); Platelet Count 302 K/mm3 (142-424); Red Blood Count 4.92 M/mm3 (4.20-5.40); Red Cell Distribution Width 15.6 % (11.5-17.5); White Blood Count 8.5 K/mm3 (4.8-10.8)
--- NOTE | 2024-09-11 12:17 | SUR.PREOP ---
Verified w/ pt that she has had levaquin before and has done okay w/ this medication in the past. Pharmacy aware.
[2024-09-11] MEDS: LEVOFLOXACIN/D5W 500 MG/100 ML PIGGYBACK 100 MG IV (12:24)
[2024-09-11 12:32] LABS: Alanine Aminotransferase 15 U/L (12-78); Albumin Level 3.6 g/dl (3.5-5.0); Albumin/Globulin Ratio 0.9 (1.1-1.8); Alkaline Phosphatase 164 U/L (38-126); Anion Gap 7.5 mEq/L (5-15); Aspartate Amino Transferase 37 U/L (14-36); Bilirubin,Total 0.5 mg/dl (0.2-1.3); Blood Urea Nitrogen 12 mg/dl (7-17); Calcium 8.8 mg/dl (8.4-10.2); Carbon Dioxide 33 mmol/L (22.0-30.0); Chloride 101 mmol/L (98-107); Creatinine Clearance Estimated 158 mL/min (50-200); Estimated Glomerular Filt Rate 87 ml/min (>60); GFR (African American) 105 ML/MIN (>60); Globulin 3.9 g/dL (1.3-3.2); Glucose 129 mg/dl (74-100); Potassium 4.5 mmoL/L (3.5-5.1); Sodium 137 mmol/L (136-145); Total Protein,Serum 7.5 g/dl (6.3-8.2)
[2024-09-11 12:38] LABS: C-Reactive Protein 8.6 mg/L (0-4)
[2024-09-11] MEDS: MORPHINE 2MG/ML SYRINGE 2 MG IV (12:52)
[2024-09-11] MEDS: GENTAMICIN 80 MG/2 ML VIAL (13:20)
[2024-09-11 13:25] VITALS: BP 146/88; PULSE 76; RESP 16; O2SAT 92
--- NOTE | 2024-09-11 13:28 | P.OP_ITS ---
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 Patient has failed conservative treatment, including multiple debridements, various wound dressings, off-loading, immobilization. The recent x-rays are negative for underlying bone infection. Any prior skin/soft tissue infection resolved with oral/IV antibiotics. We discussed surgery. All risks and benefits were discussed including but not limited to: damage to blood vessels and nerves, bleeding, infection, wound complications, need for further surgery, implant/graft failure, need for removal of implant/graft, allergic reaction, prolonged or permanent swelling of the extremity, prolonged or permanent pain or deformity, CRPS/RSD, DVT/PE, and anesthetic complications including . Patient understands if wound/graft gets infected, it could lead to prolonged oral or IV antibiotics or increased risk of osteomyelitis, which could lead to possible loss of digits, partial foot or even BKA. No guarantees were given. All questions fully answered. The patient verbalized understanding and agreed to proceed with surgery. Written consent was obtained. Operative findings:: Right Foot s/p I&D partial 4th met resection and 5th ray amp. January wound maceration resolved. No new purulence, drainage or malodor noted. There is less january wound erythema extending plantar medial with less POP noted. Wound dehiscence to proximal lateral suture line. Wound x2 sharply excisionally debrided full-thickness with 15' blade, curette both through skin, subcu. No exposed deep fascia or bone. Post debridement: Right lateral distal suture wound dehiscence: 0.6 x 0.3 x 0.1cm, 100% granular. Right lateral foot DFU: 100% granular, 3.8 x 3.1 x 0.2 cm, 100% granular. No acute signs of infection noted. Operative note:: On this date and time patient was deemed an appropriate surgical candidate. With informed consent signed, the patient was taken to the local procedure operating theater room. The patient was positioned supine. No anesthesia was induced. No tourniquet used. Right lower extremity was prepped and draped in normal sterile fashion. IV Levo 500mg given. Topical lidocaine applied. Right DFU x2 debridement: Pre-debridement there was minimal maceration and no acute signs of infection noted. Sharp excisional full-thickness debridement with 15 blade, curette, forceps down to/including subcutaneous tissue to both ulcers. Biofilm and fibrotic slough removed. No deep fascia or bone exposed. The skin edges were debrided with 15' blade, some bleeding noted. The wounds were flushed with gentamicin irrigation. Skin cleansed with saline. Mastisol applied around the wound edges. Application of Apligraf (Organogenesis wound graft): Graft was prepared in standard fashion. The entire graft was utilized over the wounds. The graft was placed to the DFU and secured with Steri-Strips. Adaptic was applied over the graft followed by dry sterile dressing to right foot. The patient tolerated the procedure well, without complications. Materials: Organogenesis Aligraf wound graft x1 Discharge/Plan: Ok to discharge home when ready and vss. Patient is to maintain dressing clean dry and intact. Elevate on two pillows. Minimize weight bearing. NWB to RLE in fracture boot with walker/wheelchair/RKS. eRx Oxy 5mg for pain, Levo 500mg x7d (09/11-09/18/24). Discussed planned staged surgery in 1 week on 09/18/24 @1300: right foot wound debridement, application of wound graft #2. [facility] Orders: -hold on home visits for this and next week (surgery: 09/11/24, 09/18/24). -once we start graft application, will not need dressing changes for 2 weeks (until 09/25-09/26/24) and again the following week. -right foot dressing: change and apply silver (dispensed to patient) or betadine, dry 4x4, kerlix, joan wrap. -minimize activity, PWB to right heel in fx boot only for transfers. -NWB to RLE in fx boot with DME. -f/u with Podiatry weekly. Condition: stable Disposition: same day Complications:: None
[2024-09-11 14:18] LABS: Erythrocyte Sedimentation Rate 15 mm/hr (0-30)
== END 2024-09-11 13:36 | disposition home or self-care (01) ==
PROVIDERS: PCP Nurse Practitioner; Visit Provider Podiatrist
PROC: (CPT 15275; principal; 2024-09-11 13:00)
DX: E11.621 Type 2 diabetes mellitus with foot ulcer (principal); L97.511 Non-pressure chronic ulcer of other part of right foot limited to breakdown of skin; Z79.4 Long term (current) use of insulin; Z79.85 Long-term (current) use of injectable non-insulin antidiabetic drugs; Z79.899 Other long term (current) drug therapy; F17.210 Nicotine dependence, cigarettes, uncomplicated
CPT/HCPCS: 15275; 80053; 85025; 85651; 86140; J1580; J1956; J2270; Q4101

== ENCOUNTER 2024-09-15 12:56 | Day surgery (SDC) | payer MEDICARE, OTHER, SELFPAY ==
[2024-09-15 13:20] VITALS: BP 135/59; PULSE 71; RESP 20; O2SAT 93; BMI 39.2
--- NOTE | 2024-09-15 13:29 | P.PCN_ITS ---
Procedure Date: 09/15/24 Time: 13:30 Anesthesiologist:: Renae Rey APRN Complications:: None Pre-procedure Diagnosis:: Degenerative disc disease of lumbar spine with lumbar radiculopathy symptoms Post-procedure Diagnosis:: Same Indications for Procedure:: Patient is a pleasant 54-year-old female who presents today for intrathecal refill and reprogram. Today she rates her pain a 8 out of 10. Patient denies any new changes from her last appointment. She is still seeing Dr. Ruth's o ffice for her right foot wound. She does state from our last appointment it is healing much better and that she did actually apply ice skin graft now to that area. Patient is still scheduled for regular follow-up appointments with Dr. Ruth. Patient is currently managed with Dilaudid 20 mg/mL at 8 mg/day and bupivacaine 10 mg/mL with 4 mg/day. She denies any side effects from this medication. Patient was decreased down at her last visit and she is requesting if we can go back up due to the worsening pain. Her Sukhjinder has been reviewed and is appropriate. Physical Exam: General: Alert and oriented x3, no acute distress, pleasant and cooperative Lungs: Respirations even and unlabored, symmetrical chest expansion Eyes: PERRL Musculoskeletal: Flexion and extension of lumbar [spine] somewhat guarded secondary to pain, [antalgic gait noted] Neurological: Speech clear, no gross sensory deficit Procedure Details:: Informed consent was obtained and the risk and benefits of the procedure were explained to the patient. The patient had noninvasive monitoring placed including noninvasive blood pressure cuff and pulse oximeter. Patient's pump was interrogated. The area over the pump was cleansed with chlorhexidine as a cleansing solution. In sterile fashion the pump was accessed with a 22-gauge needle. Approximately 8 mls of the pump solution was removed and discarded appropriately. The pump was then refilled with 20 mL's of Dilaudid 20 mg/mL and bupivacaine 10 mg/mL. The needle was withdrawn and a bandage was placed over the puncture site. The infusion rate was reprogrammed and Dilaudid 8 mg/mL and bupivacaine 4 mg/mL. the patient tolerated well with no complication. Plan and Disposition:: Patient tolerated her intrathecal refill and reprogram with no complications and was discharged neurologically intact. I did discuss with her that Dr. Goddard was wanting her decrease down to a concentration of Dilaudid 15 mg/mL and that I will reach back out to him to confirm this. Patient was counseled that we will not make any adjustments up or down at this point until I do get confirmation with Dr. Goddard. Patient acknowledges understanding agrees with plan of care. Patient will plan on returning to clinic for next intrathecal refill date. We will see the patient back in the clinic at the next intrathecal refill. Patient has been instructed to contact the clinic with any concerns before the next appointment. Dr. Goddard has reviewed this note and agrees with this plan of care. This note was dictated using voice recognition software and make contain errors or omissions. -- It Is medically necessary for this patient to continue to have their intrathecal pump refilled at regular intervals. This patient had an intrathecal pain pump implanted after meeting criteria of chronic intractable pain for greater than 3 months and failing conservative treatments. Patient has committed and been compliant to the treatment plan and all planned follow up care. Since implantation of the intrathecal pain pump, the patient has had decreased pain and been more functional. Oral medications have been reduced including intake of oral opioids. Patient continues to do well with intrathecal therapy with decrease in pain symptoms and increase in functional status. Stopping intrath ecal medications can lead to life threatening withdrawal, seizures, cardiac arrest, severe pain, and possible . Pumps that are not refilled at regular intervals can be damages and cause and need for replacement. We continually titrate dose and concentration to optimize pain relief and function. We are limited in concentration for certain drugs to safely deliver medications through the pump and stay within the recommendations from the Polyanalgesic Consensus Committee Guidelines. Depending on dose and concentration these pumps may need to be refilled sooner than 3 months as we titrate. A UDS is needed to verify patient's compliance with our office pain contract. This is ordered based off specific treatments related to chronic pain with the potential to abuse certain medications.
[2024-09-15 13:36] VITALS: BP 153/73; PULSE 66; RESP 20; O2SAT 94
[2024-09-15 13:37] VITALS: BP 153/73; PULSE 66; RESP 20; O2SAT 94
[2024-09-15 13:40] VITALS: BP 126/57; PULSE 68; RESP 18; O2SAT 94
== END 2024-09-15 14:00 | disposition home or self-care (01) ==
PROVIDERS: PCP Nurse Practitioner; Visit Provider Nurse Practitioner Family
DX: M51.16 Intervertebral disc disorders with radiculopathy, lumbar region (principal)
CPT/HCPCS: 62370

== ENCOUNTER 2024-09-18 12:01 | Day surgery (SDC) | payer MEDICARE, OTHER, SELFPAY ==
--- NOTE | 2024-09-16 16:51 | SUR.PREOP ---
left message w/ call back # on 09/16
[2024-09-18 12:18] VITALS: BMI 39.2
[2024-09-18] MEDS: SODIUM CHLORIDE 0.9% 10ML FLUSH SYRINGE 10 ML IV (12:20)
[2024-09-18 12:22] VITALS: BP 145/65; PULSE 80; RESP 18; TEMP 36.4; O2SAT 94
[2024-09-18] MEDS: MORPHINE 2MG/ML SYRINGE 2 MG IV (12:34)
[2024-09-18 12:39] LABS: POC Glucose,Bedside 156 (70-110)
[2024-09-18] MEDS: VANCOMYCIN 1000MG VIAL 1000 MG (13:21)
[2024-09-18] MEDS: GENTAMICIN 80 MG/2 ML VIAL (13:21)
[2024-09-18 13:25] VITALS: BP 161/86; PULSE 72; RESP 17; TEMP 36.6; O2SAT 93
--- NOTE | 2024-09-18 13:30 | EXP.OP.NOTE ---
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 Patient has failed conservative treatment, including multiple debridements, various wound dressings, off-loading, immobilization. The recent x-rays are negative for underlying bone infection. Any prior skin/soft tissue infection resolved with oral/IV antibiotics. We discussed surgery. She is having staged wound grafting. 09/11/24: graft application #1, 09/18/24: graft application #2. All risks and benefits were discussed including but not limited to: damage to blood vessels and nerves, bleeding, infection, wound complications, need for further surgery, implant/graft failure, need for removal of implant/graft, allergic reaction, prolonged or permanent swelling of the extremity, prolonged or permanent pain or deformity, CRPS/RSD, DVT/PE, and anesthetic complications including . Patient understands if wound/graft gets infected, it could lead to prolonged oral or IV antibiotics or increased risk of osteomyelitis, which could lead to possible loss of digits, partial foot or even BKA. No guarantees were given. All questions fully answered. The patient verbalized understanding and agreed to proceed with surgery. Written consent was obtained. Operative findings:: Planned staged graft surgery. Right Foot s/p I&D partial 4th met resection and 5th ray amp. January wound maceration resolved. No new purulence, drainage or malodor noted. There is minimal january wound erythema extending plantar medial with less POP noted. Wound dehiscence/scar tissue noted to proximal lateral suture line from previous amp surgery. January wound skin was fragile secondary to previous surgeyr, wound dehiscence, wound debridement and local wound care. Graft incorporating to both wounds. Wound x2 sharply excisionally debrided full-thickness with 15' blade, forceps, curette. No exposed deep fascia or bone. Post debridement: Right lateral distal suture wound dehiscence: 0.0 x 0.0cm, 100% granular, healed. Right lateral foot DFU: thru skin into subq, 100% granular, 2.9 x 2.8 x 0.2 cm. No acute signs of infection noted. Operative note:: On this date and time patient was deemed an appropriate surgical candidate. With informed consent signed, the patient was taken to the local procedure operating theater room. The patient was positioned supine. No anesthesia was induced. No tourniquet used. Right lower extremity was prepped and draped in normal sterile fashion. IV Levo 500mg given. Right DFU x2 debridement: Pre-debridement there was minimal maceration and no acute signs of infection noted. Sharp excisional full-thickness debridement with 15 blade, curette, forceps down to/including subcutaneous tissue. Biofilm and fibrotic slough removed. No deep fascia or bone exposed. The skin edges were debrided with 15' blade, some bleeding noted. The wounds were flushed with gentamicin irrigation. Skin cleansed with saline. Mastisol applied around the wound edges. Application of Apligraf (Organogenesis wound graft): Graft was prepared in standard fashion. The entire graft (44 sq cm) was utilized over the wounds. Vanco powder applied to the wound after graft applied. The graft was placed over the open wound/DFU and circumferentially around the surrounding skin (as the graft was larger than the wound and the skin was fragile) and secured with Steri-Strips. Adaptic was applied over the graft followed by dry sterile dressing to right foot. The patient tolerated the procedure well, without complications. Materials: Organogenesis Aligraf wound graft x1 (44 sq cm), Vanco powder 1g Discharge/Plan: Ok to discharge home when ready and vss. Patient is to maintain dressing clean dry and intact. Elevate on two pillows. Minimize weight bearing. NWB to RLE in fracture boot with walker/wheelchair/RKS. eRx Oxy 10mg for pain, Levo 500mg x7d (09/11-09/18/24). Discussed planned staged surgery in the future if needed. Follow up 09/22/24 for wound check, dressing change. [facility] Orders: -hold on home visits for this and next week (surgery: 09/11/24, 09/18/24). -once we start graft application, will not need dressing changes for 2 weeks (until 09/25-09/26/24) and again the following week. -right foot dressing: change and apply silver (dispensed to patient) or betadine, dry 4x4, kerlix, joan wrap. -minimize activity, PWB to right heel in fx boot only for transfers. -NWB to RLE in fx boot with DME. -f/u with Podiatry weekly. scheduled for 09/22/24 @1430: will give new wound orders then. Condition: stable Disposition: same day Complications:: None
[2024-09-18] MEDS: LEVOFLOXACIN/D5W 500 MG/100 ML PIGGYBACK 100 MG IV (13:35)
== END 2024-09-18 14:30 | disposition home or self-care (01) ==
PROVIDERS: PCP Nurse Practitioner; Visit Provider Podiatrist
PROC: (CPT 15275; principal; 2024-09-18 13:00)
DX: E11.621 Type 2 diabetes mellitus with foot ulcer (principal); F17.210 Nicotine dependence, cigarettes, uncomplicated; Z79.4 Long term (current) use of insulin; Z79.899 Other long term (current) drug therapy; E55.9 Vitamin D deficiency, unspecified; Z79.85 Long-term (current) use of injectable non-insulin antidiabetic drugs; L97.511 Non-pressure chronic ulcer of other part of right foot limited to breakdown of skin
CPT/HCPCS: 15275; 82962; 96374; J1580; J1956; J2270; J3370; Q4101

== ENCOUNTER 2024-10-14 08:29 | Day surgery (SDC) | payer MEDICARE, OTHER, SELFPAY ==
--- NOTE | 2024-10-14 09:46 | EXP.PAIN.PRO ---
Procedure Date: 10/14/24 Time: 10:39 Anesthesiologist:: Renae Rey APRN Complications:: None Pre-procedure Diagnosis:: Degenerative disc disease of lumbar spine with lumbar radiculopathy symptoms, bilateral lymphedema Post-procedure Diagnosis:: Same Indications for Procedure:: Patient is a pleasant 54-year-old female who presents today for intrathecal refill and reprogram. Today she rates her pain a 7 out of 10. Patient denies any injury or changes. She did have an appointment with Dr. Villar office today for her continued injury along her right foot and ankle. She does state that it has done really well and only has 1 small area of healing left. Patient is currently managed with Dilaudid 20 mg/mL at 8 mg/day and bupivacaine 10 mg/mL with 4 mg/day. She denies any side effects from this medication. Patient has been getting oral oxycodone from podiatry due to the continued pain related to her right foot osteomyelitis however she does state today that she is no longer getting these prescriptions or taking them. Her Sukhjinder has been reviewed and is appropriate. Physical Exam: General: Alert and oriented x3, no acute distress, pleasant and cooperative Lungs: Respirations even and unlabored, symmetrical chest expansion Eyes: PERRL Musculoskeletal: Flexion and extension of lumbar [spine] somewhat guarded secondary to pain, [antalgic gait noted] Neurological: Speech clear, no gross sensory deficit Procedure Details:: Informed consent was obtained and the risk and benefits of the procedure were explained to the patient. The patient had noninvasive monitoring placed including noninvasive blood pressure cuff and pulse oximeter. Patient's pump was interrogated. The area over the pump was cleansed with chlorhexidine as a cleansing solution. In sterile fashion the pump was accessed with a 22-gauge needle. Approximately 7.5 mls of the pump solution was removed and discarded appropriately. The pump was then refilled with 20 mL's of Dilaudid 20 mg/mL and bupivacaine 10 mg/mL. The needle was withdrawn and a bandage was placed over the puncture site. The infusion rate was reprogrammed and continued at Dilaudid 8 mg/day and bupivacaine 4 mg/day. The patient tolerated well with no complication. Plan and Disposition:: Patient tolerated her procedure well with no complications and was discharged neurologically intact. Patient will return to clinic on or before her next intrathecal refill date. We will see the patient back in the clinic at the next intrathecal refill. Patient has been instructed to contact the clinic with any concerns before the next appointment. Dr. Goddard has reviewed this note and agrees with this plan of care. This note was dictated using voice recognition software and make contain errors or omissions. -- It Is medically necessary for this patient to continue to have their intrathecal pump refilled at regular intervals. This patient had an intrathecal pain pump implanted after meeting criteria of chronic intractable pain for greater than 3 months and failing conservative treatments. Patient has committed and been compliant to the treatment plan and all planned follow up care. Since implantation of the intrathecal pain pump, the patient has had decreased pain and been more functional. Oral medications have been reduced including intake of oral opioids. Patient continues to do well with intrathecal therapy with decrease in pain symptoms and increase in functional status. Stopping intrathecal medications can lead to life threatening withdrawal, seizures, cardiac arrest, severe pain, and possible . Pumps that are not refilled at regular intervals can be damages and cause and need for replacement. We continually titrate dose and concentration to optimize pain relief and function. We are limited in concentration for certain drugs to safely deliver medications through the pump and stay within the recommendations from the Polyanalgesic Consensus Committee Guidelines. Depending on dose and concentration these pumps may need to be refilled sooner than 3 months as we titrate. A UDS is needed to verify patient's compliance with our office pain contract. This is ordered based off specific treatments related to chronic pain with the potential to abuse certain medications.
[2024-10-14 10:25] VITALS: BP 161/76; PULSE 79; RESP 18; TEMP 36.4; O2SAT 96; BMI 40.3
[2024-10-14 10:31] VITALS: BP 164/99; PULSE 77; RESP 18; O2SAT 96
[2024-10-14 10:35] VITALS: BP 164/99; PULSE 77; RESP 18; O2SAT 96
[2024-10-14 10:56] VITALS: BP 152/49; PULSE 65; RESP 18; O2SAT 94
== END 2024-10-14 10:56 | disposition home or self-care (01) ==
PROVIDERS: PCP Nurse Practitioner; Visit Provider Nurse Practitioner Family
DX: M51.16 Intervertebral disc disorders with radiculopathy, lumbar region (principal); I89.0 Lymphedema, not elsewhere classified
CPT/HCPCS: 62370

== ENCOUNTER 2024-11-04 11:06 | Outpatient (CLI) | payer MEDICARE, OTHER, SELFPAY ==
--- NOTE | 2024-11-04 11:15 | XR_ITS ---
FINAL REPORT CLINICAL HISTORY: right wrist pain FINDINGS: Right wrist Three views were obtained. There is no fracture or dislocation. The joint spaces appear normal. No soft tissue abnormality is identified. IMPRESSION: No acute process. Reviewed, Interpreted and Dictated by Agustin Frazier MD Transcribed by Vida Rodriguez Authenticated and . [facility]
--- NOTE | 2024-11-04 11:15 | XR_ITS ---
FINAL REPORT CLINICAL HISTORY: Left wrist pain FINDINGS: Left wrist Three views were obtained. There is no fracture or dislocation. The joint spaces appear normal. No soft tissue abnormality is identified. IMPRESSION: No acute process. Reviewed, Interpreted and Dictated by Agustin Frazier MD Transcribed by Vida Rodriguez Authenticated and [facility]
--- NOTE | 2024-11-04 11:15 | XR_ITS ---
FINAL REPORT CLINICAL HISTORY: Diabetic Foot Ulcer COMPARISON: None FINDINGS: RIGHT FOOT 3 views of the right foot were obtained. There has been amputation of the fifth ray, and another amputation involving the base of the fourth metatarsal. No acute bony abnormality is identified. Osteopenia is present. There is subcutaneous emphysema in the lateral aspect of the foot, likely related to the patient's diabetic ulcer. IMPRESSION: Postoperative changes as described above, without acute bony abnormality identified. There is subcutaneous emphysema in the lateral aspect of the foot, likely related to the patient's diabetic ulcer. Reviewed, Interpreted and Dictated by Agustin Frazier MD Transcribed by Bebe Red Authenticated and [facility]
[2024-11-04 12:45] LABS: Basophils # 0.1 K/mm3 (0-0.2); Basophils % 0.8 % (0.1-2.0); Eosinophils # 0.4 K/mm3 (0.0-0.4); Eosinophils % 4.1 % (0.1-12.0); Hematocrit 43.7 % (37.0-47.0); Hemoglobin 14.5 g/dL (12.2-16.2); Lymphocytes # 2.3 K/mm3 (0.7-4.5); Lymphocytes % 25.4 % (10-50); Mean Corpuscular HGB Conc 33.2 g/dL (31.8-35.4); Mean Corpuscular Hemoglobin 28.1 pg (27.0-31.2); Mean Corpuscular Volume 84.7 fl (81-99); Mean Platelet Volume 10.6 fl (7.4-10.4); Monocytes # 0.9 K/mm3 (0.1-1.0); Monocytes % 9.3 % (1.7-9.3); Neutrophils # 5.5 K/mm3 (1.8-7.8); Neutrophils % 60.3 % (37.0-80.0); Platelet Count 280 K/mm3 (142-424); Red Blood Count 5.16 M/mm3 (4.20-5.40); Red Cell Distribution Width 13.9 % (11.5-17.5); White Blood Count 9.1 K/mm3 (4.8-10.8)
[2024-11-04 13:33] LABS: Alanine Aminotransferase 20 U/L (12-78); Albumin Level 3.2 g/dl (3.5-5.0); Albumin/Globulin Ratio 0.9 (1.1-1.8); Alkaline Phosphatase 184 U/L (38-126); Anion Gap 9.7 mEq/L (5-15); Aspartate Amino Transferase 26 U/L (14-36); Bilirubin,Total 0.2 mg/dl (0.2-1.3); Blood Urea Nitrogen 12 mg/dl (7-17); Calcium 8.9 mg/dl (8.4-10.2); Carbon Dioxide 30 mmol/L (22.0-30.0); Chloride 100 mmol/L (98-107); Estimated Glomerular Filt Rate 87 ml/min (>60); GFR (African American) 105 ML/MIN (>60); Globulin 3.5 g/dL (1.3-3.2); Glucose 186 mg/dl (74-100); Potassium 4.7 mmoL/L (3.5-5.1); Sodium 135 mmol/L (136-145); Total Protein,Serum 6.7 g/dl (6.3-8.2)
[2024-11-04 13:40] LABS: C-Reactive Protein 17.3 mg/L (0-4)
[2024-11-04 13:55] LABS: Erythrocyte Sedimentation Rate 28 mm/hr (0-30)
== END 2024-11-04 23:59 | disposition home or self-care (01) ==
PROVIDERS: Podiatrist; PCP Nurse Practitioner; Visit Provider Physician Assistant Surgical
DX: M25.532 Pain in left wrist (principal); M25.531 Pain in right wrist; E11.621 Type 2 diabetes mellitus with foot ulcer; L97.515 Non-pressure chronic ulcer of other part of right foot with muscle involvement without evidence of necrosis
CPT/HCPCS: 36415; 73110; 73630; 80053; 85025; 85651; 86140

== ENCOUNTER 2024-11-07 10:26 | Day surgery (SDC) | payer MEDICARE, OTHER, SELFPAY ==
[2024-11-07 10:58] VITALS: BP 178/82; PULSE 81; RESP 16; O2SAT 94; BMI 39.5
--- NOTE | 2024-11-07 11:08 | EXP.PAIN.PRO ---
Procedure Date: 11/07/24 Time: 11:33 Anesthesiologist:: Renae Rey APRN Complications:: None Pre-procedure Diagnosis:: Degenerative disc disease of lumbar spine with lumbar radiculopathy symptoms Post-procedure Diagnosis:: Same Indications for Procedure:: Patient is a pleasant 54-year-old female who presents today for intrathecal refill and reprogram. Today she rates her pain a 7 out of 10. She denies any new trauma or injury. She does state that almost all of her foot has healed however there is 1 area of concern with the engineering psychologist that they are possibly worried may be additional infection. She states they are waiting to see whether or not if she is going to have to go back and and possibly open at that and wash it out. Patient does state that she feels like she is walking on a golf ball. Patient is still in her boot. Patient is currently managed with Dilaudid 20 mg/mL and bupivacaine 10 mg/mL with a daily dose of Dilaudid 8 mg/day and bupivacaine 4 mg/day. She denies any side effects. She is asking if there is any way we can go up. She is prescribed gabapentin from an outside provider. Her Sukhjinder has been reviewed and is appropriate. Physical Exam: General: Alert and oriented x3, no acute distress, pleasant and cooperative Lungs: Respirations even and unlabored, symmetrical chest expansion Eyes: PERRL Musculoskeletal: Flexion and extension of lumbar [spine] somewhat guarded secondary to pain, [antalgic gait noted] Neurological: Speech clear, no gross sensory deficit Procedure Details:: Informed consent was obtained and the risk and benefits of the procedure were explained to the patient. The patient had noninvasive monitoring placed including noninvasive blood pressure cuff and pulse oximeter. Patient's pump was interrogated. The area over the pump was cleansed with chlorhexidine as a cleansing solution. In sterile fashion the pump was accessed with a 22-gauge needle. Approximately 9 mls of the pump solution was removed and discarded appropriately. The pump was then refilled with 20 mL's of Dilaudid 20 mg/mL and bupivacaine 10 mg/mL. The needle was withdrawn and a bandage was placed over the puncture site. The infusion rate was reprogrammed and increased 5%. The patient tolerated well with no complication. Plan and Disposition:: Patient tolerated the procedure well with no complications and was discharged neurologically intact. Patient did show me her last updated photos of her foot and there is an area of definite concern that does show pus draining in the photo. We will continue to follow-up with the patient regarding this. Patient will return to clinic on or before their next intrathecal refill date. We will see the patient back in the clinic at the next intrathecal refill. Patient has been instructed to contact the clinic with any concerns before the next appointment. Dr. Goddard has reviewed this note and agrees with this plan of care. This note was dictated using voice recognition software and make contain errors or omissions. -- It Is medically necessary for this patient to continue to have their intrathecal pump refilled at regular intervals. This patient had an intrathecal pain pump implanted after meeting criteria of chronic intractable pain for greater than 3 months and failing conservative treatments. Patient has committed and been compliant to the treatment plan and all planned follow up care. Since implantation of the intrathecal pain pump, the patient has had decreased pain and been more functional. Oral medications have been reduced including intake of oral opioids. Patient continues to do well with intrathecal therapy with decrease in pain symptoms and increase in functional status. Stopping intrathecal medications can lead to life threatening withdrawal, seizures, cardiac arrest, severe pain, and possible . Pumps that are not refilled at regular intervals can be damages and cause and need for replacement. We continually titrate dose and concentration to optimize pain relief and function. We are limited in concentration for certain drugs to safely deliver medications through the pump and stay within the recommendations from the [employer]yanal[employer] Consensus [employer] Guidelines. Depending on dose and concentration these pumps may need to be refilled sooner than 3 months as we titrate. A UDS is needed to verify patient's compliance with our office pain contract. This is ordered based off specific treatments related to chronic pain with the potential to abuse certain medications.
[2024-11-07 11:29] VITALS: BP 168/82; PULSE 72; RESP 18; O2SAT 97
[2024-11-07 11:31] VITALS: BP 168/82; PULSE 72; RESP 18; O2SAT 97
[2024-11-07 11:41] VITALS: BP 154/72; PULSE 75; RESP 16; O2SAT 95
== END 2024-11-07 11:41 | disposition home or self-care (01) ==
PROVIDERS: PCP Nurse Practitioner; Visit Provider Nurse Practitioner Family
DX: M51.16 Intervertebral disc disorders with radiculopathy, lumbar region (principal)
CPT/HCPCS: 62370

== ENCOUNTER 2024-11-11 11:28 | Outpatient (CLI) | payer MEDICARE, OTHER, SELFPAY | END 2024-11-11 23:59 | disposition home or self-care (01) | LOC: LAB.DROPOF 11-12 09:10 | PROVIDERS: PCP Podiatrist; Visit Provider Podiatrist | DX: S91.309A Unspecified open wound, unspecified foot, initial encounter (principal); T81.49XA Infection following a procedure, other surgical site, initial encounter | CPT/HCPCS: 87070; 87077; 87186; 87205 ==

== ENCOUNTER 2024-11-18 11:15 | Outpatient (CLI) | payer MEDICARE, OTHER, SELFPAY | END 2024-11-18 23:59 | disposition home or self-care (01) | LOC: LAB.DROPOF 11-19 10:02 | PROVIDERS: PCP Podiatrist; Visit Provider Podiatrist | DX: E11.621 Type 2 diabetes mellitus with foot ulcer (principal); L97.515 Non-pressure chronic ulcer of other part of right foot with muscle involvement without evidence of necrosis | CPT/HCPCS: 87070; 87077; 87186; 87205 ==

== ENCOUNTER 2024-11-24 08:10 | Outpatient (CLI) | payer MEDICARE, OTHER, SELFPAY ==
--- NOTE | 2024-11-24 08:11 | CT_ITS ---
FINAL REPORT TECHNIQUE: Thin section axial CT images with coronal and sagittal reformats were performed. This study was performed with techniques to keep radiation doses as low as reasonably achievable (ALARA). Individualized dose reduction techniques using automated exposure control or adjustment of mA and/or kV according to the patient's size were employed. CLINICAL HISTORY: evaluate for abscess or recurrent 4-5th met osteo. 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 There is a subacute transverse fracture of the base of the third metatarsal seen on image 58 of series 3. There is cortical indistinctness of the proximal fourth metatarsal seen on image 49 of series 200. This could represent an area of osteomyelitis. A soft tissue ulcer overlies the cuboid with infiltration of the deeper subcutaneous tissues. Abscess cannot be excluded. IMPRESSION: Persistent large soft tissue ulcer with underlying infiltration. Abscess cannot be excluded within the area of infiltration. MRI with contrast would better assess for abscess. Small cortical defect of the proximal edge of the fourth metatarsal could represent an area of osteomyelitis. Subacute nondisplaced fracture of the third proximal metatarsal. Reviewed, Interpreted and Dictated by Yoni Szymanski MD Transcribed by Aretha Nicole Authenticated and [facility]
[2024-11-24 09:49] LABS: Basophils # 0.1 K/mm3 (0-0.2); Eosinophils # 0.3 K/mm3 (0.0-0.4); Eosinophils % 4.9 % (0.1-12.0); Hematocrit 46.1 % (37.0-47.0); Hemoglobin 15.2 g/dL (12.2-16.2); Lymphocytes # 2.5 K/mm3 (0.7-4.5); Lymphocytes % 35.4 % (10-50); Mean Corpuscular Hemoglobin 28.3 pg (27.0-31.2); Mean Corpuscular Volume 85.8 fl (81-99); Mean Platelet Volume 10.2 fl (7.4-10.4); Monocytes # 0.7 K/mm3 (0.1-1.0); Neutrophils # 3.4 K/mm3 (1.8-7.8); Neutrophils % 48.4 % (37.0-80.0); Platelet Count 277 K/mm3 (142-424); Red Blood Count 5.37 M/mm3 (4.20-5.40); Red Cell Distribution Width 14.1 % (11.5-17.5)
[2024-11-24 10:12] LABS: Albumin Level 3.3 g/dl (3.5-5.0); Chloride 98 mmol/L (98-107); Potassium 5.9 mmoL/L (3.5-5.1); Sodium 136 mmol/L (136-145)
[2024-11-24 10:14] LABS: Blood Urea Nitrogen 21 mg/dl (7-17); Estimated Glomerular Filt Rate 52 ml/min (>60); GFR (African American) 62 ML/MIN (>60)
[2024-11-24 10:15] LABS: Alanine Aminotransferase 16 U/L (12-78); Albumin/Globulin Ratio 0.8 (1.1-1.8); Alkaline Phosphatase 182 U/L (38-126); Anion Gap 9.9 mEq/L (5-15); Aspartate Amino Transferase 25 U/L (14-36); Bilirubin,Total 0.2 mg/dl (0.2-1.3); Calcium 8.9 mg/dl (8.4-10.2); Carbon Dioxide 34 mmol/L (22.0-30.0); Erythrocyte Sedimentation Rate 12 mm/hr (0-30); Globulin 3.9 g/dL (1.3-3.2); Glucose 181 mg/dl (74-100); Total Protein,Serum 7.2 g/dl (6.3-8.2)
[2024-11-24 10:21] LABS: C-Reactive Protein 7.5 mg/L (0-4)
[2024-11-24 14:13] LABS: Hemoglobin A1C 9.4 % (4.0-6.0)
== END 2024-11-24 23:59 | disposition home or self-care (01) ==
LOC: RAD 08:11
PROVIDERS: PCP Nurse Practitioner; Visit Provider Podiatrist
DX: E11.621 Type 2 diabetes mellitus with foot ulcer (principal); L97.515 Non-pressure chronic ulcer of other part of right foot with muscle involvement without evidence of necrosis; L03.115 Cellulitis of right lower limb
CPT/HCPCS: 36415; 73700; 80053; 83036; 85025; 85651; 86140

== ENCOUNTER 2024-11-28 11:18 | Day surgery (SDC) | payer MEDICARE, OTHER, SELFPAY ==
[2024-11-28 11:20] VITALS: BP 151/65; PULSE 70; RESP 16; TEMP 36.8; O2SAT 99; BMI 39.5
--- NOTE | 2024-11-28 11:38 | EXP.PAIN.PRO ---
Procedure Date: 11/28/24 Time: 11:50 Anesthesiologist:: Renae Rey APRN Complications:: None Pre-procedure Diagnosis:: Degenerative disc disease of lumbar spine with lumbar radiculopathy symptoms, chronic pain syndrome Post-procedure Diagnosis:: Same Indications for Procedure:: Patient is a pleasant 54-year-old female who presents today for intrathecal refill and reprogram. Today she rates her pain a 7 out of 10.Patient does state that she did have a recent fall and it has aggravated her overall back symptoms. She states that she thinks it was around Sunday and she ended up falling onto her right side. She states she is a little sore going towards the left side however. She states she does not necessarily think she did anything significant. Patient does state that her criminal legal assistant has thought that she may have a hairline fracture there in her foot that she has been trying to get to heal. They are planning on doing an MRI coming up. She is asking if we can go up on the pump. She is currently managed with Dilaudid 20 mg/mL and bupivacaine 10 mg/mL. She denies any side effects. Her Sukhjinder has been reviewed and is appropriate. She is on gabapentin from an outside provider. Physical Exam: General: Alert and oriented x3, no acute distress, pleasant and cooperative Lungs: Respirations even and unlabored, symmetrical chest expansion Eyes: PERRL Musculoskeletal: Flexion and extension of lumbar [spine] somewhat guarded secondary to pain, [antalgic gait noted] Neurological: Speech clear, no gross sensory deficit Procedure Details:: Informed consent was obtained and the risk and benefits of the procedure were explained to the patient. The patient had noninvasive monitoring placed including noninvasive blood pressure cuff and pulse oximeter. Patient's pump was interrogated. The area over the pump was cleansed with chlorhexidine as a cleansing solution. In sterile fashion the pump was accessed with a 22-gauge needle. Approximately 10.4 mls of the pump solution was removed and discarded appropriately. The pump was then refilled with 20 mL's of Dilaudid 20 mg/mL and bupivacaine 10 mg/mL. The needle was withdrawn and a bandage was placed over the puncture site. The infusion rate was reprogrammed and increased 5% to Dilaudid 8.82 mg/day. The patient tolerated well with no complication. Plan and Disposition:: Patient tolerated the procedure well with no complications and was discharged neurologically intact. Patient does have a max daily total of 12.4485 mg/day between the Dilaudid and bupivacaine. Patient's back along the right and left side are within normal limits. There is no area of bruising or redness at this time. I have counseled the patient that if she ends up feeling like she may have actually done something more and that the pain is not improving to let our office know and we can do additional imaging to rule out fracture. Patient was also counseled that just to let our office know when she does get her MRI officially scheduled and we will plan on emptying her pump and then refilling it after the imaging. Patient agrees with this plan of care. Patient will return to clinic on or before their next intrathecal refill date. We will see the patient back in the clinic at the next intrathecal refill. Patient has been instructed to contact the clinic with any concerns before the next appointment. Dr. Goddard has reviewed this note and agrees with this plan of care. This note was dictated using voice recognition software and make contain errors or omissions. -- It Is medically necessary for this patient to continue to have their intrathecal pump refilled at regular intervals. This patient had an intrathecal pain pump implanted after meeting criteria of chronic intractable pain for greater than 3 months and failing conservative treatments. Patient has committed and been compliant to the treatment plan and all planned follow up care. Since implantation of the intrathecal pain pump, the patient has had decreased pain and been more functional. Oral medications have been reduced including intake of oral opioids. Patient continues to do well with intrathecal therapy with decrease in pain symptoms and increase in functional status. Stopping intrathecal medications can lead to life threatening withdrawal, seizures, cardiac arrest, severe pain, and possible . Pumps that are not refilled at regular intervals can be damages and cause and need for replacement. We continually titrate dose and concentration to optimize pain relief and function. We are limited in concentration for certain drugs to safely deliver medications through the pump and stay within the recommendations from the Polyanalges[employer] Consensus Committee Guidelines. Depending on dose and concentration these pumps may need to be refilled sooner than 3 months as we titrate. A UDS is needed to verify patient's compliance with our office pain contract. This is ordered based off specific treatments related to chronic pain with the potential to abuse certain medications.
[2024-11-28 11:58] VITALS: BP 162/70; PULSE 73; RESP 18; O2SAT 95
[2024-11-28 12:02] VITALS: BP 162/70; PULSE 73; RESP 18; O2SAT 97
[2024-11-28 12:07] VITALS: BP 155/82; PULSE 66; RESP 16; O2SAT 98
== END 2024-11-28 12:07 | disposition home or self-care (01) ==
PROVIDERS: PCP Nurse Practitioner; Visit Provider Nurse Practitioner Family
DX: M51.16 Intervertebral disc disorders with radiculopathy, lumbar region (principal); G89.4 Chronic pain syndrome
CPT/HCPCS: 62370

== ENCOUNTER → 2024-12-19 08:48 | Day surgery (SDC) | payer MEDICARE, OTHER, SELFPAY ==
--- NOTE | 2024-12-19 08:56 | P.PCN_ITS ---
Procedure Date: 12/19/24 Time: 09:12 Anesthesiologist:: Renae Rey APRN Complications:: None Pre-procedure Diagnosis:: Degenerative disc disease of lumbar spine with lumbar radiculopathy symptoms Post-procedure Diagnosis:: Same Indications for Procedure:: Patient is a pleasant 54-year-old female who presents today for intrathecal refill. Her pain today is 7 out of 10. Patient is continuing to see Dr. Ortiz related to her foot that is still trying to continue to heal. She states that the pain is not doing anything for this pain. Patient is managed with Dilaudid 20 mg/mL and bupivacaine 10 mg/mL. She denies any side effects from this medication. Patient is prescribed gabapentin from an outside provider. She has also recently been given tramadol [address] Ortiz's office related to her foot pain. She does state that she did talk to Dr. Ortiz regarding continued pain medication for the foot and was wanting to see if we could prescribe something in addition to the pump medication. Patient is scheduled for MRI later today and is just presenting currently to have the pump emptied and coming back later on this afternoon to have it refilled. Her Sukhjinder has been reviewed. Physical Exam: General: Alert and oriented x3, no acute distress, pleasant and cooperative Lungs: Respirations even and unlabored, symmetrical chest expansion Eyes: PERRL Musculoskeletal: Flexion and extension of lumbar [spine] somewhat guarded secondary to pain, [antalgic gait noted] Neurological: Speech clear, no gross sensory deficit Procedure Details:: Informed consent was obtained and the risk and benefits of the procedure were ex plained to the patient. The patient had noninvasive monitoring placed including noninvasive blood pressure cuff and pulse oximeter. Patient's pump was interrogated. The area over the pump was cleansed with chlorhexidine as a cleansing solution. In sterile fashion the pump was accessed with a 22-gauge needle. Approximately 9.6 mls of the pump solution was removed and discarded appropriately. The pump was then refilled with 20 mL's of Dilaudid 20 mg/mL and bupivacaine 10 mg/mL. The needle was withdrawn and a bandage was placed over the puncture site. The infusion rate was reprogrammed and continued at its current dosage. The patient tolerated well with no complication. Plan and Disposition:: Patient tolerated the pump emptying with no complications. Patient left pain management side to go do blood work and her MRI around 920 and we will return later on to have the pump refilled. I did discuss with the patient that we will send in a 1 month supply of tramadol 50 mg twice a day to help with her foot pain. Patient agrees with this plan of care. Patient did request that this prescription be sent here to clinic today. Patient return to our clinic around 1015 and had her pump refilled with her pump medication. Patient tolerated this well with no complications and was discharged neurologically intact. Patient was unable to complete her MRI due to her stimulator that is in place. Patient does state that she feels like the stimulator is not doing anything. Patient denies any recent reprogramming. She does state that she would like to have this just removed. Patient was counseled that it would be a little while before we would be able to do this. It would also be dependent upon her foot condition. We will follow-up with this at future visits. We will see the patient back in the clinic at the next intrathecal refill. Patient has been instructed to contact the clinic with any concerns before the next appointment. Dr. Goddard has reviewed this note and agrees with this plan of care. This note was dictated using voice recognition software and make contain errors or omissions. -- It Is medically necessary for this patient to continue to have their intrathecal pump refilled at regular intervals. This patient had an intrathecal pain pump implanted after meeting criteria of chronic intractable pain for greater than 3 months and failing conservative treatments. Patient has committed and been compliant to the treatment plan and all planned follow up care. Since implantation of the intrathecal pain pump, the patient has had decreased pain and been more functional. Oral medications have been reduced including intake of oral opioids. Patient continues to do well with intrathecal therapy with decrease in pain symptoms and increase in functional status. Stopping intrathecal medications can lead to life threatening withdrawal, seizures, cardiac arrest, severe pain, and possible . Pumps that are not refilled at regular intervals can be damages and cause and need for replacement. We continually titrate dose and concentration to optimize pain relief and function. We are limited in concentration for certain drugs to safely deliver medications through the pump and stay within the recommendations from the Polyanalges[employer] Consensus Committee Guidelines. Depending on dose and concentration these pumps may need to be refilled sooner than 3 months as we titrate. A UDS is needed to verify patient's compliance with our office pain contract. This is ordered based off specific treatments related to chronic pain with the potential to abuse certain medications.
[2024-12-19 09:06] VITALS: BP 128/100; PULSE 74; RESP 16; TEMP 36.5; O2SAT 97; BMI 39.5
[2024-12-19 09:12] VITALS: BP 175/71; PULSE 74; RESP 18; O2SAT 91
[2024-12-19 09:23] VITALS: BP 175/71; PULSE 74; RESP 18; O2SAT 91
[2024-12-19 09:52] LABS: Basophils # 0.1 K/mm3 (0-0.2); Basophils % 0.8 % (0.1-2.0); Eosinophils # 0.3 K/mm3 (0.0-0.4); Eosinophils % 4.1 % (0.1-12.0); Hematocrit 47.2 % (37.0-47.0); Hemoglobin 15.9 g/dL (12.2-16.2); Lymphocytes # 1.6 K/mm3 (0.7-4.5); Lymphocytes % 20.8 % (10-50); Mean Corpuscular HGB Conc 33.7 g/dL (31.8-35.4); Mean Corpuscular Hemoglobin 28.4 pg (27.0-31.2); Mean Corpuscular Volume 84.4 fl (81-99); Mean Platelet Volume 9.7 fl (7.4-10.4); Monocytes # 0.7 K/mm3 (0.1-1.0); Monocytes % 9.2 % (1.7-9.3); Neutrophils # 4.9 K/mm3 (1.8-7.8); Neutrophils % 64.8 % (37.0-80.0); Platelet Count 302 K/mm3 (142-424); Red Blood Count 5.59 M/mm3 (4.20-5.40); Red Cell Distribution Width 14.4 % (11.5-17.5); White Blood Count 7.5 K/mm3 (4.8-10.8)
[2024-12-19 10:17] VITALS: BP 177/80; PULSE 76; RESP 18; O2SAT 92
[2024-12-19 10:19] VITALS: BP 177/80; PULSE 74; RESP 18; O2SAT 92
[2024-12-19 10:24] LABS: Alanine Aminotransferase 15 U/L (12-78); Albumin Level 3.5 g/dl (3.5-5.0); Albumin/Globulin Ratio 0.9 (1.1-1.8); Alkaline Phosphatase 113 U/L (38-126); Anion Gap 5.2 mEq/L (5-15); Aspartate Amino Transferase 24 U/L (14-36); Bilirubin,Total 0.4 mg/dl (0.2-1.3); Blood Urea Nitrogen 16 mg/dl (7-17); Carbon Dioxide 38 mmol/L (22.0-30.0); Chloride 92 mmol/L (98-107); Creatinine Clearance Estimated 139 mL/min (50-200); Estimated Glomerular Filt Rate 74 ml/min (>60); GFR (African American) 90 ML/MIN (>60); Globulin 3.8 g/dL (1.3-3.2); Glucose 371 mg/dl (74-100); Potassium 4.2 mmoL/L (3.5-5.1); Sodium 131 mmol/L (136-145); Total Protein,Serum 7.3 g/dl (6.3-8.2)
[2024-12-19 10:29] VITALS: BP 153/67; PULSE 74; RESP 16; O2SAT 93
[2024-12-19 10:31] LABS: C-Reactive Protein 13.9 mg/L (0-4)
[2024-12-19 10:46] LABS: Erythrocyte Sedimentation Rate 17 mm/hr (0-30)
== END | disposition home or self-care (01) ==
LOC: SC.PAIN 09:31 → RAD 09:32
PROVIDERS: Podiatrist; PCP Nurse Practitioner; Visit Provider Nurse Practitioner Family
DX: E11.621 Type 2 diabetes mellitus with foot ulcer (principal); L97.515 Non-pressure chronic ulcer of other part of right foot with muscle involvement without evidence of necrosis
CPT/HCPCS: 36415; 80053; 85025; 85651; 86140

== ENCOUNTER 2025-01-09 10:52 | Day surgery (SDC) | payer MEDICARE, OTHER, SELFPAY ==
[2025-01-09 11:07] VITALS: BP 142/67; PULSE 75; RESP 16; O2SAT 94; BMI 40.3
--- NOTE | 2025-01-09 11:10 | EXP.PAIN.PRO ---
Procedure Date: 01/09/25 Time: 11:20 Anesthesiologist:: Renae Rey APRN Complications:: None Pre-procedure Diagnosis:: Degenerative disc disease of lumbar spine with lumbar radiculopathy symptoms Post-procedure Diagnosis:: Same Indications for Procedure:: Patient is a pleasant 54-year-old female who presents today for intrathecal refill and reprogram. Today she rates her pain a 7 out of 10. She denies any new trauma or injury.Patient is currently managed with intrathecal Dilaudid 20 mg/mL and bupivacaine 10 mg/mL with a daily dosage of 8.82 mg/day.Patient was also recently given tramadol 50 mg twice daily to help provide additional improvement for her chronic foot pain that she has been seeing Dr. Ortiz on and has had episodes of osteomyelitis requiring surgery intervention. She does state that this is still trying to heal. She is scheduled for an MRI on Sunday at 330 they are at [facility] in [place]. She states that she is having her pump emptied at the [place] location. She denies any other changes. Her Sukhjinder has been reviewed and is appropriate. Physical Exam: General: Alert and oriented x3, no acute distress, pleasant and cooperative Lungs: Respirations even and unlabored, symmetrical chest expansion Eyes: PERRL Musculoskeletal: Flexion and extension of lumbar [spine] somewhat guarded secondary to pain, [antalgic gait noted] Neurological: Speech clear, no gross sensory deficit Procedure Details:: Informed consent was obtained and the risk and benefits of the procedure were explained to the patient. The patient had noninvasive monitoring placed including noninvasive blood pressure cuff and pulse oximeter. Patient's pump was interrogated. The area over the pump was cleansed with chlorhexidine as a cleansing solution. In sterile fashion the pump was accessed with a 22-gauge needle. Approximately 8.9 mls of the pump solution was removed and discarded appropriately. The pump was then refilled with 20 mL's of Dilaudid 20 mg/mL and bupivacaine 10 mg/mL. The needle was withdrawn and a bandage was placed over the puncture site. The infusion rate was reprogrammed and increased to 9 mg/day. The patient tolerated well with no complication. Plan and Disposition:: Patient tolerated the procedure well with no complications and was discharged neurologically intact. I did discuss with patient that we will reach out to the [place] office to confirm that she does have an appointment time to have her pump emptied and then refilled following her MRI. Patient will return to clinic on or before their next intrathecal refill date. We will see the patient back in the clinic at the next intrathecal refill. Patient has been instructed to contact the clinic with any concerns before the next appointment. Dr. Goddard has reviewed this note and agrees with this plan of care. This note was dictated using voice recognition software and make contain errors or omissions. -- It Is medically necessary for this patient to continue to have their intrathecal pump refilled at regular intervals. This patient had an intrathecal pain pump implanted after meeting criteria of chronic intractable pain for greater than 3 months and failing conservative treatments. Patient has committed and been compliant to the treatment plan and all planned follow up care. Since implantation of the intrathecal pain pump, the patient has had decreased pain and been more functional. Oral medications have been reduced including intake of oral opioids. Patient continues to do well with intrathecal therapy with decrease in pain symptoms and increase in functional status. Stopping intrathecal medications can lead to life threatening withdrawal, seizures, cardiac arrest, severe pain, and possible . Pumps that are not refilled at regular intervals can be damages and cause and need for replacement. We continually titrate dose and concentration to optimize pain relief and function. We are limited in concentration for certain drugs to safely deliver medications through the pump and stay within the recommendations from the Polyanalges[employer] Consensus Committee Guidelines. Depending on dose and concentration these pumps may need to be refilled sooner than 3 months as we titrate. A UDS is needed to verify patient's compliance with our office pain contract. This is ordered based off specific treatments related to chronic pain with the potential to abuse certain medications.
[2025-01-09 11:21] VITALS: BP 174/86; PULSE 73; RESP 18; O2SAT 94
[2025-01-09 11:23] VITALS: BP 174/86; PULSE 73; RESP 18; O2SAT 94
[2025-01-09 11:33] VITALS: BP 137/76; PULSE 79; RESP 16; O2SAT 96
== END 2025-01-09 11:33 | disposition home or self-care (01) ==
PROVIDERS: PCP Nurse Practitioner; Visit Provider Nurse Practitioner Family
DX: M51.16 Intervertebral disc disorders with radiculopathy, lumbar region (principal)
CPT/HCPCS: 62370

== ENCOUNTER 2025-01-30 11:29 | Day surgery (SDC) | payer MEDICARE, OTHER, SELFPAY ==
[2025-01-30 11:43] VITALS: BP 133/83; PULSE 75; RESP 16; O2SAT 92; BMI 39.5
--- NOTE | 2025-01-30 11:49 | EXP.HP ---
History of Present Illness *Admission Date: 01/30/25 *Reason for visit:: Intrathecal refill; DDD *History of present illness: Degenerative disc disease [facility] Disclaimer: The information contained in this section may have been updated after the patient was seen, as this information can be updated by other users. Medical History Pre-ulcerative calluses Ingrown toenail of left foot Intractable neuropathic pain of right lower extremity Skin change Decreased pedal pulses Diabetic foot ulcer Pain in both feet Viral upper respiratory tract infection Leg pain Anxiety about health Moderate depressive disorder Cellulitis Patient left without being seen Chronic pain disorder Lumbar radiculopathy, acute Neuropathic pain Hyperglycemia Hypothyroidism Other forms of angina pectoris Other specified depressive episodes Neuralgia and neuritis Hypertension with goal to be determined Anxiety with somatization Vitamin D deficiency Microalbuminuria Keratosis Callus of foot Onychodystrophy Onychoincurvatum Bronchitis Angina at rest Right flank pain Chest pain Presence of intrathecal pump Excess skin of arm bilateral removal Encounter for wound care 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 Type 2 diabetes mellitus Diabetic foot Surgical History Total knee replacement status bilateral Family History Other Family history of COPD (chronic obstructive pulmonary disease) Family history of cancer Family history of diabetes mellitus type II Family history of hypertension Family history of myocardial infarction Social History Smoking Status: Current some day smoker tobacco type: cigarettes packs per day: 1 second hand exposure: Yes alcohol intake: never substance use type: denies use current occupational status: other Travel in the last 8 weeks?: None household members: friend(s) housing: house lives independently: Yes marital status: single education level: high school 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 caffeine: Yes special heather needs: No agree to transfusion: No do you feel safe at home: Yes victim of physical abuse: No victim of emotional abuse: No victim of sexual abuse: No would you like helpful sources: No Have you lived/traveled outside US in past 30 days?: No Contact w/someone who lives/traveled outside US past 30 days?: No Exposure to someone with infectious disease in past 14 days?: No Do you have a fever (greater than 100.4 F or 38 C)?: No Have you tested positive for COVID-19?: No Exposed to someone with COVID-19 in past 14 days?: No Do you have a sore throat?: No Do you have a cough?: No Do you have any weakness?: No Do you have any diarrhea?: No Are you experiencing any unusual bleeding?: No Do you have any muscle aches/pain?: No Do you have any abdominal pain?: No Are you experiencing loss of taste or smell?: No Other Medical History Have you received the Flu Vaccine for this season: No Have you received the Pneumonia Vaccine: No Review of Systems Review of Systems Review of systems:: pertinent systems reviewed and negative unless documented below Review of systems (narrative): Review of Systems: General: No recent weight changes, no fever, no sleep disturbances Respiratory: No cough, no shortness of air, no recurring pulmonary infections Cardiovascular/peripheral vascular: No chest pain, no palpitations, no edema, no shortness of breath Gastrointestinal: No new onset incontinence, normal bowel movements reported Genitourinary: No new onset incontinence Musculoskeletal: Chronic back pain Psychiatric: [Normal mood/affect] Neurological: [Denies weakness in extremities], [denies balance issues] Meds Home Medications and Allergies Home Medications ?Medication ?Instructions ?Recorded ?Confirmed ?Type flash glucose sensor 05/04/22 01/30/25 History flash glucose scanning reader 08/14/22 01/30/25 History (Youxigu Joelle 14 Day [place]) carvedilol 25 mg tablet 25 mg PO BID High blood pressure 02/15/23 01/30/25 Rx 90 days #180 tabs fenofibrate 54 mg tablet 54 mg PO DAILY Cholesterol #90 tabs 02/15/23 01/30/25 Rx insulin glargine 100 unit/mL (3 10 unit (0.1 mL) SQ HS Diabetes 02/15/23 01/30/25 Rx mL) subcutaneous pen #15 mL lisinopril 2.5 mg tablet 2.5 mg PO DAILY Hypertension #90 02/15/23 01/30/25 Rx tabs methocarbamol 1,000 mg tablet 1,000 mg PO TID muscle spasms #90 04/16/23 01/30/25 Rx tabs flash glucose sensor (FreeStyle #1 ea 06/15/23 01/30/25 Rx Joelle 14 Day Sensor kit) furosemide 40 mg tablet 40 mg PO BID 07/02/24 01/30/25 History hydroxyzine pamoate 25 mg capsule 25 mg PO TID PRN Panic Disorder 07/02/24 01/30/25 History (Vistaril) isosorbide dinitrate 30 mg tablet 30 mg PO BID 07/02/24 01/30/25 History methimazole 5 mg tablet 2.5 mg PO DAILY 07/02/24 01/30/25 History pantoprazole 40 mg tablet,delayed 40 mg PO DAILY 07/02/24 01/30/25 History release ropinirole 3 mg tablet 3 mg PO HS 07/02/24 01/30/25 History tizanidine 4 mg tablet (Zanaflex) 4 mg PO BID PRN Myalgia 07/02/24 01/30/25 History trazodone 150 mg tablet 150 mg PO HS 07/02/24 01/30/25 History gabapentin 400 mg capsule 600 mg PO TID 07/28/24 01/30/25 History semaglutide 2 mg/dose (8 mg/3 mL) 2 mg SQ WEEKLY 07/28/24 01/30/25 History subcutaneous pen injector (Ozempic) citalopram 40 mg tablet (Celexa) 40 mg PO DAILY 09/11/24 01/30/25 History duloxetine 60 mg capsule,delayed 60 mg PO DAILY MOOD 09/11/24 01/30/25 History release (Cymbalta) silver sulfadiazine 1 % topical 1 applic topical DAILY 30 days #50 10/28/24 01/30/25 Rx cream (Silvadene) grams sulfamethoxazole 800 1 tab PO BID cellulitis 7 days #14 11/04/24 01/30/25 Rx mg-trimethoprim 160 mg tablet tabs (Bactrim DS) clindamycin HCl 300 mg capsule 300 mg PO TID infection 10 days 12/16/24 01/30/25 Rx #30 caps tramadol 50 mg tablet 50 mg PO BID PRN pain #60 tabs 12/19/24 01/30/25 Rx tramadol 50 mg tablet 50 mg PO Q6H PRN pain #30 tabs 01/06/25 01/30/25 Rx New Prescriptions to Start Prescriptions: Allergies Allergy/AdvReac Type Severity Reaction Status Date / Time ceftriaxone (From ROCEPHIN) Allergy Unknown Rash Verified 01/29/25 09:29 droperidol (From INAPSINE) Allergy Unknown Hives Verified 01/29/25 09:29 ibuprofen (IBUPROFEN) Allergy Unknown Hives Verified 01/29/25 09:29 moxifloxacin (From AVELOX) Allergy Unknown Rash Verified 01/29/25 09:29 Exam Constitutional Constitutional: no acute distress *Routine HEENT Exam Head: Present normocephalic and atraumatic Eye: Present PERRL ENT: Present mucous membranes moist *Routine Neck Exam Neck: Present supple *Routine Respiratory Exam Respiratory: Present CTA bilaterally *Routine Cardiovascular Exam Cardiovascular: Present RRR *Routine Abdominal Exam Abdominal: Present soft *Routine Rectal Exam Rectal:: deferred *Routine Genitalia Exam Genitalia:: normal female Routine Back/Spine/Pelvis Exam Back/Spine: Present pain with flexion *Routine Skin Exam Skin: Present intact and warm *Routine Neurological Exam Neurological: Present alert and oriented X3 Routine Psychiatric Exam Psychiatric: Present normal affect Assessment and Plan *Assessment and plan (1) Degenerative joint disease (DJD) of lumbar spine: Status: Chronic Qualifiers: Spinal osteoarthritis complication: with radiculopathy Qualified Code(s): M47.26 - Other spondylosis with radiculopathy, lumbar region Category: Medical Code(s): M47.816 - Spondylosis without myelopathy or radiculopathy, lumbar region (2) Lumbar radiculopathy: Status: Chronic Category: Medical Code(s): M54.16 - Radiculopathy, lumbar region Plan Patient has been instructed to contact the clinic with any concerns before the next appointment. Dr. Goddard has reviewed this note and agrees with this plan of care. This note was dictated using voice recognition software and make contain errors or omissions. All injections are used with Lidocaine, Bupivacaine and dexamethasone. Occasionally urine drug screen is needed to verify patient's compliance with our office pain contract. This is ordered based off specific treatments related to chronic pain with the potential to abuse certain medications.
--- NOTE | 2025-01-30 11:58 | EXP.PAIN.PRO ---
Procedure Date: 01/30/25 Time: 12:10 Anesthesiologist:: Renae Rey APRN Complications:: None Pre-procedure Diagnosis:: Degenerative disc disease of lumbar spine with lumbar radiculopathy symptoms Post-procedure Diagnosis:: Same Indications for Procedure:: Patient is a pleasant 54-year-old female who presents today for intrathecal refill and reprogram. Today she rates her pain a 7 out of 10. She denies any new trauma or injury. Patient does state that she is officially scheduled for MRI of her foot coming up on 04 February. Patient denies any other changes. Patient is currently managed with Dilaudid 20 mg/mL and bupivacaine 10 mg/mL with a daily dose of 8.82 mg/day. Patient has also been given prescriptions for tramadol 50 mg twice a day from our office to help with her overall foot symptoms. Patient is requesting refills. Her Sukhjinder has been reviewed and is appropriate. Physical Exam: General: Alert and oriented x3, no acute distress, pleasant and cooperative Lungs: Respirations even and unlabored, symmetrical chest expansion Eyes: PERRL Musculoskeletal: Flexion and extension of lumbar [spine] somewhat guarded secondary to pain, [antalgic gait noted] Neurological: Speech clear, no gross sensory deficit Procedure Details:: Informed consent was obtained and the risk and benefits of the procedure were explained to the patient. The patient had noninvasive monitoring placed including noninvasive blood pressure cuff and pulse oximeter. Patient's pump was interrogated. The area over the pump was cleansed with chlorhexidine as a cleansing solution. In sterile fashion the pump was accessed with a 22-gauge needle. Approximately 8.9 mls of the pump solution was removed and discarded appropriately. The pump was then refilled with 20 mL's of Dilaudid 20 mg/mL and bupivacaine 10 mg/mL. The needle was withdrawn and a bandage was placed over the puncture site. The infusion rate was reprogrammed and continued at its current dose. The patient tolerated well with no complication. Plan and Disposition:: Patient tolerated the procedure well with no complications and was discharged neurologically intact. I will refill the tramadol 50 mg twice a day and provide a 1 month supply of his medication. Patient will return to clinic on or before their next intrathecal refill date. We will see the patient back in the clinic at the next intrathecal refill. Patient has been instructed to contact the clinic with any concerns before the next appointment. Dr. Goddard has reviewed this note and agrees with this plan of care. This note was dictated using voice recognition software and make contain errors or omissions. -- It Is medically necessary for this patient to continue to have their intrathecal pump refilled at regular intervals. This patient had an intrathecal pain pump implanted after meeting criteria of chronic intractable pain for greater than 3 months and failing conservative treatments. Patient has committed and been compliant to the treatment plan and all planned follow up care. Since implantation of the intrathecal pain pump, the patient has had decreased pain and been more functional. Oral medications have been reduced including intake of oral opioids. Patient continues to do well with intrathecal therapy with decrease in pain symptoms and increase in functional status. Stopping intrathecal medications can lead to life threatening withdrawal, seizures, cardiac arrest, severe pain, and possible . Pumps that are not refilled at regular intervals can be damages and cause and need for replacement. We continually titrate dose and concentration to optimize pain relief and function. We are limited in concentration for certain drugs to safely deliver medications through the pump and stay within the recommendations from the Polyanalges[employer] Consensus Committee Guidelines. Depending on dose and concentration these pumps may need to be refilled sooner than 3 months as we titrate. A UDS is needed to verify patient's compliance with our office pain contract. This is ordered based off specific treatments related to chronic pain with the potential to abuse certain medications.
[2025-01-30 12:06] VITALS: BP 136/76; PULSE 77; RESP 18; O2SAT 95
[2025-01-30 12:19] VITALS: BP 139/71; PULSE 76; RESP 18; O2SAT 94
== END 2025-01-30 12:19 | disposition home or self-care (01) ==
PROVIDERS: PCP Nurse Practitioner; Visit Provider Nurse Practitioner Family
DX: M51.16 Intervertebral disc disorders with radiculopathy, lumbar region (principal)
CPT/HCPCS: 62370; 99221

== ENCOUNTER 2025-02-05 11:43 | Outpatient (CLI) | payer MEDICARE, OTHER, SELFPAY ==
--- NOTE | 2025-02-05 11:47 | XR_ITS ---
FINAL REPORT CLINICAL HISTORY: right foot wound, right foot pain FINDINGS: RIGHT FOOT 3 views of the right foot were obtained. There are postoperative changes of amputation of the fifth digit and the proximal fourth metatarsal. The bones are osteopenic. There is no convincing bony destruction. There is mild soft tissue edema. IMPRESSION: Postoperative changes without bony destruction. Consider MRI if clinical concern for osteomyelitis persists. Reviewed, Interpreted and Dictated by Valentina Lopes MD Transcribed by FLORES Rodas Authenticated and [facility]
[2025-02-05 12:35] LABS: Basophils # 0.1 K/mm3 (0-0.2); Basophils % 0.7 % (0.1-2.0); Eosinophils # 0.3 Kmm3 (0.0-0.4); Eosinophils % 2.6 % (0.1-12.0); Hematocrit 51.8 % (37.0-47.0); Hemoglobin 17.6 g/dL (12.2-16.2); Immature Granulocytes # 0.03 10^3uL; Immature Granulocytes % 0.3 %; Lymphocytes # 2.9 K/mm3 (0.7-4.5); Lymphocytes % 27.4 % (10-50); Mean Corpuscular Hemoglobin 28.8 pg (27.0-31.2); Mean Corpuscular Volume 84.6 fl (81-99); Mean Platelet Volume 10.5 fl (7.4-10.4); Monocytes # 0.8 K/mm3 (0.1-1.0); Monocytes % 7.1 % (1.7-9.3); Neutrophils # 6.6 K/mm3 (1.8-7.8); Neutrophils % 61.9 % (37.0-80.0); Nucleated Red Blood Cells # 0 10^3/uL; Nucleated Red Blood Cells % 0 %; Platelet Count 236 K/mm3 (142-424); Red Blood Count 6.12 M/mm3 (4.20-5.40); Red Cell Distribution Width 14.6 % (11.5-17.5); Red Cell Distribution Width-SD 44.2 fL; White Blood Count 10.6 K/mm3 (4.8-10.8)
[2025-02-05 12:51] LABS: Alanine Aminotransferase 18 U/L (12-78); Albumin Level 3.7 g/dl (3.5-5.0); Alkaline Phosphatase 146 U/L (38-126); Aspartate Amino Transferase 28 U/L (14-36); Bilirubin,Total 0.6 mg/dl (0.2-1.3); Blood Urea Nitrogen 16 mg/dl (7-17); Calcium 9.5 mg/dl (8.4-10.2); Carbon Dioxide 34 mmol/L (22.0-30.0); Chloride 96 mmol/L (98-107); Estimated Glomerular Filt Rate 87 ml/min (>60); GFR (African American) 105 ML/MIN (>60); Globulin 3.7 g/dL (1.3-3.2); Glucose 169 mg/dl (74-100); Sodium 131 mmol/L (136-145); Total Protein,Serum 7.4 g/dl (6.3-8.2); Uric Acid 6.7 mg/dl (2.5-6.2)
[2025-02-05 13:07] LABS: C-Reactive Protein 5.6 mg/L (0-4)
[2025-02-05 13:20] LABS: Erythrocyte Sedimentation Rate 3 mm/hr (0-30)
[2025-02-05 19:50] LABS: Hemoglobin A1C 9.4 % (4.0-6.0)
== END 2025-02-05 23:59 | disposition home or self-care (01) ==
LOC: LAB 11:44
PROVIDERS: PCP Nurse Practitioner; Visit Provider Podiatrist
DX: E11.621 Type 2 diabetes mellitus with foot ulcer (principal); S91.301A Unspecified open wound, right foot, initial encounter
CPT/HCPCS: 36415; 73630; 80053; 83036; 84550; 85025; 85651; 86140

== ENCOUNTER 2025-02-16 10:59 | Outpatient (POV) | payer MEDICARE, OTHER, SELFPAY ==
[2025-02-16 11:59] VITALS: BP 140/83; PULSE 75; RESP 14; O2SAT 98; BMI 39.5
--- NOTE | 2025-02-16 12:31 | EXP.PAIN.SOA ---
[facility] Disclaimer: The information contained in this section may have been updated after the patient was seen, as this information can be updated by other users. Medical History Pre-ulcerative calluses Ingrown toenail of left foot Intractable neuropathic pain of right lower extremity Skin change Decreased pedal pulses Diabetic foot ulcer Pain in both feet Viral upper respiratory tract infection Leg pain Anxiety about health Moderate depressive disorder Cellulitis Patient left without being seen Chronic pain disorder Lumbar radiculopathy, acute Neuropathic pain Hyperglycemia Hypothyroidism Other forms of angina pectoris Other specified depressive episodes Neuralgia and neuritis Hypertension with goal to be determined Anxiety with somatization Vitamin D deficiency Microalbuminuria Keratosis Callus of foot Onychodystrophy Onychoincurvatum Bronchitis Angina at rest Right flank pain Chest pain Presence of intrathecal pump Excess skin of arm bilateral removal Encounter for wound care 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 Type 2 diabetes mellitus Diabetic foot Surgical History Total knee replacement status bilateral Family History Other Family history of COPD (chronic obstructive pulmonary disease) Family history of cancer Family history of diabetes mellitus type II Family history of hypertension Family history of myocardial infarction Social History Smoking Status: Current some day smoker tobacco type: cigarettes packs per day: 1 second hand exposure: Yes alcohol intake: never substance use type: denies use current occupational status: other Travel in the last 8 weeks?: None household members: friend(s) housing: house lives independently: Yes marital status: single education level: high school current occupation: [employer] caffeine: Yes special heather needs: No agree to transfusion: No do you feel safe at home: Yes victim of physical abuse: No victim of emotional abuse: No victim of sexual abuse: No would you like helpful sources: No Have you lived/traveled outside US in past 30 days?: No Contact w/someone who lives/traveled outside US past 30 days?: No Exposure to someone with infectious disease in past 14 days?: No Do you have a fever (greater than 100.4 F or 38 C)?: No Have you tested positive for COVID-19?: No Exposed to someone with COVID-19 in past 14 days?: No Do you have a sore throat?: No Do you have a cough?: No Do you have any weakness?: No Do you have any diarrhea?: No Are you experiencing any unusual bleeding?: No Do you have any muscle aches/pain?: No Do you have any abdominal pain?: No Are you experiencing loss of taste or smell?: No PM Subjective & Objective Subjective Subjective:: Patient is a pleasant 54-year-old female who presents today wanting to discuss the possibility of having her spinal cord stimulator removed. Patient states that her pain is a 7 out of 10. She denies any new trauma or injury. She states that she was still trying to get her MRI of her foot however they could not get her device into MRI mode and she feels like due to that along with the fact that she just does not really feel like it is working she would like to have it removed. Patient states she cannot even get it to charge. Patient is currently managed with Dilaudid 20 mg/mL with bupivacaine 10 mg/mL with a daily dose of 9 mg/day. Patient is also currently being prescribed tramadol 50 mg twice a day from our office for her chronic foot pain. Patient is requesting whether or not if we can increase to 3 times per day. Her Sukhjinder has been reviewed. Review of Systems: General: No recent weight changes, no fever, no sleep disturbances Respiratory: No cough, no shortness of air, no recurring pulmonary infections Cardiovascular/peripheral vascular: No chest pain, no palpitations, no edema, no shortness of breath Gastrointestinal: No new onset incontinence, normal bowel movements reported Genitourinary: No new onset incontinence Musculoskeletal: Low back pain, leg pain Psychiatric: [Normal mood/affect] Neurological: [Denies weakness in extremities], [denies balance issues] Pain at rest (0-10 scale): 7 Objective Objective:: Physical Exam: General: Alert and oriented x3, no acute distress, pleasant and cooperative Lungs: Respirations even and unlabored, symmetrical chest expansion Eyes: PERRL Musculoskeletal: Flexion and extension of lumbar [spine] somewhat guarded secondary to pain, [antalgic gait noted] Neurological: Speech clear, no gross sensory deficit Has patient had previous pain injection?: No Conservative treatment options previously tried: Home exercise plan Length of treatment: Longer than 12 Meds Home Medications and Allergies Home Medications ?Medication ?Instructions ?Recorded ?Confirmed ?Type flash glucose sensor 05/04/22 02/16/25 History flash glucose scanning reader 08/14/22 02/16/25 History (FreeStyle Joelle 14 Day [place]) carvedilol 25 mg tablet 25 mg PO BID High blood pressure 02/15/23 02/16/25 Rx 90 days #180 tabs fenofibrate 54 mg tablet 54 mg PO DAILY Cholesterol #90 tabs 02/15/23 02/16/25 Rx insulin glargine 100 unit/mL (3 10 unit (0.1 mL) SQ HS Diabetes 02/15/23 02/16/25 Rx mL) subcutaneous pen #15 mL lisinopril 2.5 mg tablet 2.5 mg PO DAILY Hypertension #90 02/15/23 02/16/25 Rx tabs methocarbamol 1,000 mg tablet 1,000 mg PO TID muscle spasms #90 04/16/23 02/16/25 Rx tabs flash glucose sensor (FreeStyle #1 ea 06/15/23 02/16/25 Rx Joelle 14 Day Sensor kit) furosemide 40 mg tablet 40 mg PO BID 07/02/24 02/16/25 History hydroxyzine pamoate 25 mg capsule 25 mg PO TID PRN Panic Disorder 07/02/24 02/16/25 History (Vistaril) isosorbide dinitrate 30 mg tablet 30 mg PO BID 07/02/24 02/16/25 History methimazole 5 mg tablet 2.5 mg PO DAILY 07/02/24 02/16/25 History pantoprazole 40 mg tablet,delayed 40 mg PO DAILY 07/02/24 02/16/25 History release ropinirole 3 mg tablet 3 mg PO HS 07/02/24 02/16/25 History tizanidine 4 mg tablet (Zanaflex) 4 mg PO BID PRN Myalgia 07/02/24 02/16/25 History trazodone 150 mg tablet 150 mg PO HS 07/02/24 02/16/25 History semaglutide 2 mg/dose (8 mg/3 mL) 2 mg SQ WEEKLY 07/28/24 02/16/25 History subcutaneous pen injector (Ozempic) citalopram 40 mg tablet (Celexa) 40 mg PO DAILY 09/11/24 02/16/25 History duloxetine 60 mg capsule,delayed 60 mg PO DAILY MOOD 09/11/24 02/16/25 History release (Cymbalta) silver sulfadiazine 1 % topical 1 applic topical DAILY 30 days #50 10/28/24 02/16/25 Rx cream (Silvadene) grams tramadol 50 mg tablet 50 mg PO BID PRN pain #60 tabs 01/30/25 02/16/25 Rx gabapentin 600 mg tablet 600 mg PO TID 02/05/25 02/16/25 History clindamycin HCl 300 mg capsule 300 mg PO TID cellulitis 2 weeks 02/12/25 02/16/25 Rx #42 caps New Prescriptions to Start Prescriptions: Allergies Allergy/AdvReac Type Severity Reaction Status Date / Time ceftriaxone (From ROCEPHIN) Allergy Unknown Rash Verified 02/12/25 11:04 droperidol (From INAPSINE) Allergy Unknown Hives Verified 02/12/25 11:04 ibuprofen (IBUPROFEN) Allergy Unknown Hives Verified 02/12/25 11:04 moxifloxacin (From AVELOX) Allergy Unknown Rash Verified 02/12/25 11:04 Assessment and Plan *Assessment and plan (1) Chronic osteomyelitis of right foot: Status: Acute Category: Medical Code(s): M86.671 - Other chronic osteomyelitis, right ankle and foot (2) Degenerative joint disease (DJD) of lumbar spine: Status: Chronic Qualifiers: Spinal osteoarthritis complication: with radiculopathy Qualified Code(s): M47.26 - Other spondylosis with radiculopathy, lumbar region Category: Medical Code(s): M47.816 - Spondylosis without myelopathy or radiculopathy, lumbar region (3) Lumbar radiculopathy: Status: Chronic Category: Medical Code(s): M54.16 - Radiculopathy, lumbar region Plan We did review at length with the patient regarding her stimulator. I will reach out to [employer] representatives to see if they can help her with the charging as well as possibility of getting an into MRI mode. I did discuss with her that we can proceed forward with having its explanted however due to her diabetes and her last A1c being 9.2 that we may have to wait until her glucose is better maintained as well as making sure that there is no active infection. Patient was counseled that it would be at least March if not longer before we could get her on the schedule. Patient acknowledges understanding. Patient at this time will be maintained on tramadol 50 mg twice a day. Patient will return to clinic at her next intrathecal refill and reprogramming date. I did speak to [employer] footwear sales representative and they are going to contact the patient to see about getting her reprogrammed and also getting her into MRI mode. We will continue to monitor this. Patient has been instructed to contact the clinic with any concerns before the next appointment. Dr. Goddard has reviewed this note and agrees with this plan of care. This note was dictated using voice recognition software and make contain errors or omissions. All injections are used with Lidocaine, Bupivacaine and dexamethasone. Occasionally urine drug screen is needed to verify patient's compliance with our office pain contract. This is ordered based off specific treatments related to chronic pain with the potential to abuse certain medications.
== END 2025-02-16 23:59 | disposition home or self-care (01) ==
PROVIDERS: PCP Nurse Practitioner; Visit Provider Nurse Practitioner Family
DX: M86.671 Other chronic osteomyelitis, right ankle and foot (principal); M47.26 Other spondylosis with radiculopathy, lumbar region; Z96.653 Presence of artificial knee joint, bilateral; F17.210 Nicotine dependence, cigarettes, uncomplicated; Z79.899 Other long term (current) drug therapy
CPT/HCPCS: 99212; G0463

== ENCOUNTER 2025-02-24 14:15 | Day surgery (SDC) | payer MEDICARE, OTHER, SELFPAY ==
[2025-02-24 14:28] VITALS: BP 121/82; PULSE 69; RESP 16; TEMP 36.6; O2SAT 97; BMI 39.5
[2025-02-24 14:57] VITALS: BP 121/82; PULSE 69; RESP 18; O2SAT 97
[2025-02-24 15:11] VITALS: BP 126/77; PULSE 70; RESP 16; O2SAT 97
--- NOTE | 2025-02-24 15:11 | EXP.PAIN.PRO ---
Procedure Date: 02/24/25 Time: 14:45 Anesthesiologist:: Niraj Rodriguez CRNA Complications:: None Pre-procedure Diagnosis:: Degenerative disc lumbar spine multilevels. Lumbar radiculopathy. Lumbar postlaminectomy syndrome. Lumbar facet arthropathy. Lumbar spondylosis. Post-procedure Diagnosis:: Same. Indications for Procedure:: Patient is a very pleasant 54-year-old female who comes our clinic today for intrathecal pain pump interrogation and refill. She is currently managed with hydromorphone 20 mg/mL at 9 mg/day. Also, bupivacaine 10 mg/mL at 4.5 mg/day. She is doing very well at her current settings. She is not requesting changes. She is not reporting side effects or complications. Patient is awake alert [place] x 3. No acute distress. Flexion-extension lumbar spine somewhat guarded secondary to pain. Deep tendon reflexes upper lower extremities normal. Motor strength upper and lower extremities normal. There is no gross sensory deficit. Gait is normal. Procedure Details:: Details of the procedure explained to the patient. The patient taken to the procedure room placed in the sitting position. They over the palms cleansed using chlorhexidine as a cleansing solution. The pump was interrogated. The pump was accessed with ease using a 22-gauge inch and half needle. 8 mL of solution was withdrawn discarded appropriate. The pump was then filled with 20 cc of solution containing hydromorphone 20 mg/mL and bupivacaine 10 mg/mL. Patient tolerated procedure without difficulty. No complications. No changes. Plan and Disposition:: Patient was discharged without incident.
== END 2025-02-24 15:11 | disposition home or self-care (01) ==
PROVIDERS: PCP Nurse Practitioner; Visit Provider Nurse Anesthetist, Certified Registered
DX: M51.16 Intervertebral disc disorders with radiculopathy, lumbar region (principal); M96.1 Postlaminectomy syndrome, not elsewhere classified; M47.26 Other spondylosis with radiculopathy, lumbar region
CPT/HCPCS: 95991

== ENCOUNTER 2025-03-09 07:57 | Outpatient (CLI) | payer MEDICARE, OTHER, SELFPAY ==
--- OUTSIDE RECORDS SUMMARY | 2025-03-09 08:00 | XMS_ITS | Clinical Summary ---
Author Organization [facility] Address [address] [place] [address] Care Team Providers Care Quantitative Researcher Name Role Phone Faustino Amador MD Primary Care Provider + [phone] Allergies Active Allergy Reactions Criticality Noted Date Comments Ceftriaxone Hives Medium 05/05/2021 Droperidol Hives Medium 05/05/2021 Ibuprofen Hives Medium 05/05/2021 Metformin Other - please docum ent in the comment field Low 12/03/2023 GI issues Moxifloxacin Hives Medium 05/05/2021 Medications carvedilol (Coreg) 25 MG tablet Take 1 tablet (25 mg) by mouth 2 (two) times a day with meals. 09/03/20 19 Active DULoxetine (Cymbalta) [address] capsule Take 1 capsule (60 mg) by mouth 1 (one) time each day. 07/05/20 20 Active escitalopram (Lexapro) 20 MG tablet Take 1 tablet (20 mg) by mouth 1 (one) time each day. 07/05/20 20 Active fenofibrate (Tricor) 54 MG tablet Take 1 tablet (54 mg) by mouth 1 (one) time each day. 07/05/20 20 Active furosemide (Lasix) 80 MG tablet TAKE 1 TABLET TWICE DAILY 07/05/20 Active isosorbide mononitrate ER (Imdur) 30 MG 24 hr tablet Take 1 tablet (30 mg) by mouth 1 (one) time each day. 09/03/20 19 Active nitroglycerin (Nitrostat) 0.4 MG SL tablet 07/05/20 Active rOPINIRole (Requip) 3 MG tablet Take 1 tablet (3 mg) by mouth every night. 07/05/20 Active simvastatin (Zocor) 40 MG tablet 2 tablets (80 mg) every night. 07/05/20 Active losartan (Cozaar) 100 MG tablet Take 1 tablet (100 mg) by mouth 1 (one) time each day. Active Insulin Glargine (BASAGLAR KWIKPEN SC) Inject 6 Units under the skin every night. Active Ozempic, 0.25 or 0.5 MG/DOSE, 2 MG/1.5ML solution pen-injector inj. pen Inject 0.375 mL (0.5 mg) under the skin 1 (one) time per week. Takes on Sunday11/21/19 Active pantoprazole (Protonix) 40 MG EC tablet Take 1 tablet (40 mg) by mouth every night. 10/10/19 Active lisinopril 2.5 MG tablet Take 1 tablet (2.5 mg) by mouth 1 (one) time each day. 10/10/19 Active Lancets (OneTouch Delica Plus [id number]) [facility] 07/11/20 Active Easy Comfort Pen [facility] 31G X 5 MM [facility] 12/11/19 Active HumuLIN 70/30 KWIKPEN (70-30) 100 UNIT/ML injection 60 Units 2 (two) times a day before meals. 09/06/20 Active OneTouch Verio test strip 07/11/20 Active gabapentin (Neurontin) 400 MG capsule Take 1 capsule (400 mg) by mouth 4 (four) times a day. 11/21/19 Active cyclobenzaprine (Fexmid) 7.5 MG tablet every night. 10/28/19 Active Continuous Blood Gluc Sensor (FreeStyle Joelle 14 Day Sensor) [facility] 11/14/19 Active diclofenac (Voltaren) 75 MG EC tablet Take 1 tablet (75 mg) by mouth 2 (two) times a day. 05/18/20 Active traZODone (Desyrel) 100 MG tablet Take 3 tablets (300 mg) by mouth every night. Active acetaminophen (Tylenol) 500 MG tablet Take 2 tablets (1,000 mg total) by mouth every 8 (eight) hours. 100 tablet 1 05/26/20 22 Active albuterol 0.63 MG/3ML nebulizer solution inhale contents of 1 vial by nebulizer four times a day as directed 10/29/19 24 Active ergocalciferol 1.25 MG (25983 UT) capsule Take 1 capsule every week by oral route for 90 days. 10/29/19 24 Active methocarbamol (Robaxin) 500 MG tablet 10/29/19 24 Active ondansetron ODT (Zofran-ODT) [address] 1 tablet every 4-6 hours by translingual route as needed. Active therapeutic multivitamin-salt miner als (Theragran-M) tablet Take 1 tablet by mouth 1 (one) time each day. 30 tablet 11 11/12/19 24 Active isosorbide dinitrate (Isordil) 30 MG tablet Take 1 tablet twice a day by oral route for 9 days. 01/30/20 24 Active tiZANidine (Zanaflex) 4 MG tablet Take 1 tablet twice a day by oral route as needed for 30 days. 01/25/20 24 Active hydrOXYzine pamoate (Vistaril) 25 MG capsule Take 1 capsule (25 mg) by mouth 3 (three) times a day if needed. 05/08/20 24 Active mupirocin (Bactroban) 2 % ointment APPLY A SMALL AMOUNT TO THE AFFECTED AREA BY TOPICAL ROUTE 2 TIMES PER DAY 05/01/20 24 Active traMADol (Ultram) 50 MG tablet Take 1 tablet (50 mg) by mouth every 8 (eight) hours. 05/08/20 24 Active collagenase (Santyl) 250 UNIT/GM ointmentIndication s:Midfoot ulceration, right, with fat layer exposed (CMS/HCC),Foot ulceration, right, with fat layer exposed (CMS/HCC) Apply nickel thick amount to wound bed daily. Wound Measurement 1.2 cm x 2 cm x 0.3 cm. 30 g 3 05/19/20 24 Active methIMAzole (Tapazole) 5 MG tabletIndications: Graves disease Take 0.5 tablets (2.5 mg) by mouth 1 (one) time each day. 30 tablet 2 06/13/20 24 025 Active Active Problems Problem Noted Date Diagnosed Date Lymphedema 05/19/2024 Foot ulceration, right, with fat layer exposed 0 02/04/2024 Open wound 02/04/2024 Peripheral edema 02/04/2024 Ulcer of toe of right foot, with fat layer expos ed 11/13/2023 Ulcer of left heel, with fat layer exposed 11/13 Morbid obesity with body mass index (BMI) of 40. 0 or higher 05/25/2022 Excessive skin and subcutaneous tissue Hematoma 03/07/2022 Overview (05/24/2022): Added automatically from request for surgery [id number] Excess skin 12/16/2021 Overview (12/16/2021): Added automatically from request for surgery [id number] Microalbuminuria 03/12/2020 Cervical radiculopathy 11/22/2018 Neck pain 11/22/2018 Chronic obstructive pulmonary disease 10/15/2012 Disorder of thyroid 10/15/2012 Essential (primary) hypertension 10/15/2012 Pure hypercholesterolemia 10/15/2012 Type 2 diabetes mellitus without (mention of) co mplications 10/15/2012 Overview (07/03/2022): Regulatory Update July 2022 Family History Medical History Relation Name Comments Asthma Father Hypercholesterolemia Father Hypertension Father Cancer Mother Diabetes Mother Hypercholesterolemia Mother Hypertension Mother Cancer Other 1 Diabetes Other 2 Heart disease Other 3 Migraines Other 4 Osteoporosis Other 5 Conversions - Other Other 6 Other Sp ecified Family Circumstances Bleeding disorder Other 7 Conversions - Other Other 8 Substanc e Use Disorders Thyroid disease Other 9 Anesthesia problems Neg Hx Malig Hyperthermia Neg Hx Relation Name Status Comments Father Mother Other 1 Other 2 Other 3 Other 4 Other 5 Other 6 Other 7 Other 8 Other 9 Social History Tobacco Use Types Packs/Day Years Used Date Smoking Tobacco: Every Day Cigarettes 0.8 28 Passive Smoke Exposure: Current Smokeless Tobacco: Never Tobacco Cessation:Ready to Q uit: No; Counseling Given: Not Answered Alcohol Use Standard Drinks/Week Comments Not Currently 0 (1 standard drink = 0.6 oz pur e alcohol) PHQ-2 Answer Date Recorded Patient Health Questionnaire-2 Score 0 11/12/2023 CAGE ASSESSMENT Answer Date Recorded Cage unable to access Not on file 05/26/2022 Cage max number of drinks Not on file 2021 Cage Beverages a week Not on file 05/26/2022 Have you ever felt you should CUT down on your d rinking? 0 05/26/2022 Have you been ANNOYED by people criticizing your drinking? 0 05/26/2022 Have you felt GUILTY about your drinking? 0 05/26/2022 Have you had a drink first t debra in the morning (EYE-DIGITAL MARKETING SPECIALIST) to steady your nerves or to get rid of a hangover? 0 05/26/2022 CAGE Questionnaire Score 0 022 Comments No Sex and Gender Information Value Date Recorded Sex Assigned at Female 05/24/2022 10:08 AM EDT Legal Sex Female 8:07 PM EDT Gender Identity Female 05/24/2022 10:08 AM EDT Sexual Orientation Not on file Last Filed Vital Signs Vital Sign Reading Time Taken Comments Blood Pressure 135/81 06/06/2024 8:37 AM EDT Pulse 85 06/06/2024 8:37 AM EDT Temperature 36.9 C (98.5 F) 05/19/2024 10:56 AM EDT Respiratory Rate 17 05/26/2022 7:18 AM EDT Oxygen Saturation 94% 07/07/2022 9:18 AM EDT Inhaled Oxygen Concentration - - Weight 113 kg (248 lb 3.8 oz) 06/06/2024 8:37 AM EDT Height 167.6 cm (5' 6 ) 06/06/2024 8:37 AM EDT Body Mass Index 40.07 06/06/2024 8:37 AM EDT Plan of Treatment Health Maintenance Due Date Last Done Comments Dental Oral Exam 1969 Dental Prophylaxis 1969 Dental X-Ray: Bitewings 1969 Dental X-Ray: Full Mouth 1969 [facility]-Diabetes: Hemoglobin A1C 1969 [facility]-HIV Screening 1969 [facility]-Hepatitis C Screening 1969 [facility]-Medicare Annual Wellness (AWV) 1969 [facility]-/Child/Adol SDOH Screenings 1969 Diabetes: Dental Exam 1979 [facility]- SDOH Screenings 1987 [facility]-Adult SDOH Screenings 1987 [facility]-DTaP,Tdap,and Td Vaccines (1 - Tdap) 1988 [facility]-Hepatitis B Vaccines (1 of 3 - 19+ 3-dose series) 1988 [facility]-Pap Smear 1990 [facility]-Cervical Cancer Screening 1999 [facility]-HPV/Cotest 1999 CT Colonography 2014 Colonoscopy 2014 [facility]-DNA 2014 FIT 2014 FOBT 2014 Sigmoidoscopy 2014 [facility]-Colorectal Cancer Screening 2014 [facility]-Lung Cancer Screening 2019 [facility]-Zoster Vaccines (1 of 2) 2019 [facility]-DWHQF-52 Vaccine (3 - 2023- season) 2024 04/07/2021, 03/17/2021 [facility]-Depression Screening 11/12/2024 11/12/2023 [facility]-Influenza Vaccine (Season Ended) 2025 07/01/2019, 07/19/2017 [facility]-Breast Cancer Screening 11/09/2025 11/09/2023, 0 11/09/2023 [facility]-Pneumococcal Vaccine: 50+ Years (3 of 3 - PCV20 or PCV21) 07/26/2028 07/26/2023, 06/07/2016, 07/24/2015, Additional history exists [facility]-Obesity Intervention Completed 024, 05/19/2024, 04/14/2024, Additional history exists HPV Vaccines Aged Out No longer eligi ble based on patient's age to complete this topic [facility]-HIB Vaccines Aged Out No longer e ligible based on patient's age to complete this topic [facility]-Hepatitis A Vaccines Aged Out No longer eligible based on patient's age to complete this topic [facility]-IPV Vaccines Aged Out No longer e ligible based on patient's age to complete this topic [facility]-Rotavirus Vaccines Aged Out No lo nger eligible based on patient's age to complete this topic Medical Devices Implanted Type Area Procurement Analyst Device Identifier Shelf Expiration Date Model / Serial / Lot Pain Pump Pain Pump Right: Back Insurance [facility] MEDICA[facility] [employer] MEDICARE Advance Directives * Full Code (Latest Code Status on File) Date Activated Date Inactivated Comments 05/24/2022 4:10 PM 05/26/2022 3:36 PM Question Answer Comments Patient has decision-making capacity? Yes Care Teams Quantitative Researcher Relationship Specialty Start Date End Date Faustino Amador MD [address] [place] [id number] PCP - General 03/14/21
--- OUTSIDE RECORDS SUMMARY | 2025-03-09 08:00 | XMS_ITS | Clinical Summary ---
Author Organization [facility] Address [address] [place] [address] Care Team Providers Care Journeyman Electrician Name Role Phone Unavailable Primary Care Provider Unavailabl e Social History Tobacco Use Types Packs/Day Years Used Date Smoking Tobacco: Never Assessed Comments Unknown Sex and Gender Information Value Date Recorded Sex Assigned at Not on file Legal Sex Female 5:12 PM CDT Gender Identity Not on file Sexual Orientation Not on file Plan of Treatment Not on file
--- OUTSIDE RECORDS SUMMARY | 2025-03-09 08:00 | XMS_ITS | Encounter Summary ---
Author Organization [employer] [facility] Address [address] [place] [id number] Care Team Providers Care Merchandise Shopper Name Role Phone Unavailable Primary Care Provider Unavailabl e Encounter Details Date Type Department Care Team (Late st Contact Info) Description 03/29/2022 Transcribed Document [facility] [place] [facility] [place] [address] ProviderStefani MD [address] [place] [id number] Social History Tobacco Use Types Packs/Day Years Used Date Smoking Tobacco: Never Assessed Comments Unknown Sex and Gender Information Value Date Recorded Sex Assigned at Not on file Legal Sex Female 5:12 PM CDT Gender Identity Not on file Sexual Orientation Not on file documented as of this encounter Miscellaneous Notes * Cerner Conversion Note - Stefani ProviderMD - 03/29/2022 10:32 AM CDT Nursing Discharge Summary Entered On: 03/29/2022 10:32 EDT Performed On: 03/29/2022 10:32 EDT by Justina Childers RN Discharge Documentation Discharge Date/Time : 03/29/2022 13:15 EDT Transporter Signature : Justina Childers RN Towles, Tammy L, RN - 03/29/2022 13:34 EDT Patient Disposition, General : Discharge Discharge To : Home with ambulatory/outpatient follow-up Mode Of Departure, General Discharge : Private vehicle Accompanied By, Discharge : Other: aunt IV Discontinued : Yes Personal Belongings With Patient : Yes Discharge Instructions Reviewed With, Opportunity For Questions Given : Patient, Other: aunt Patient Education Completed : Yes Teaching Method : Explanation, Printed materials Teaching Evaluation : Returns demonstration, Verbalizes understanding Justina Childers RN - 03/29/2022 10:32 EDT documented in this encounter Plan of Treatment Not on file documented as of this encounter Visit Diagnoses Not on filedocumented in this encounter
--- OUTSIDE RECORDS SUMMARY | 2025-03-09 08:00 | XMS_ITS | Data Portability ---
Author Organization [facility] Address [address] [place] [address] Care Team Providers Care Inspector Fibrous Wallboard Name Role Phone JOSÉ FREEMAN Referring Provider Assessment Encounter Date Assessment Date Assessment LastModified by Organization Details LastModified Time 11/22/2018 11/22/2018 48-year-old female history with history of neck pain that radiates in the bilateral upper extremities. She reports is been going on for about 4 months now. She reports numbness and tingling. She denies previous surgery or evaluation of this area. She did physical therapy which made her pain worse. She tried multiple medications and failed him. She's not been able to tolerate neuropathic medications. She reports [place] 4 times a day has only been marginally effective. She reports heat and ice of been helpful for this. Upper extremity activity seemed to exacerbate her pain. On examination: Spurling sign positive bilaterally. Strength intact in bilateral upper extremities. Mild tenderness to palpation of the cervical spine. Previous records from other providers imaging Sukhjinder, and if applicable UDS were reviewed.ORT score was reviewed and patient advised of mental health resources available, if requested. Imaging report shows: no pertinent imaging available this time. UDS: negative. this is not consistent. Should be positive for hydrocodone. We'll sent for confirmation to helpestablish a pattern of compliance.we will await this confirmation before prescribing medications. Plan: at this time we will await patient's confirmation before prescribing her controlled medications.if he comes back consistent we can prescribe her Percocet 5/325 mg 3 times a day when necessary #90 for the month. Advised patient not to take his medication every day and to use half doses as tolerated to decrease the chances of tolerance and dependence. Patient reports that they understand this and will use the medication as sparingly as possible. we will also review patient's imaging when it shows up and I believe the patient may be a good candidate for a WAQAR C7/T1. We will discuss to switch her when we get her pressure back. Worse benefits and alternatives discussed with patient agreed to proceed if origin future. [email or web address] Not available 11/22/2018 14:18:48 12/23/2018 12/23/2018 48-year-old female history with history of neck pain that radiates in the bilateral upper extremities. Today she reports no change in the nature of her chronic pain today. I do not have any imaging of the cervical spine for review today. She weighs 527 lbs and reports [facility] does not have a machine that she can fit in. She reports she has participated in physical therapy previously and did not benefit. She was previously treated by another pain management facility but reports the physician left. At her initial appointment on 11/22/18 her UDS was negative for hydrocodone and metabolites. She reports she traveled for a week and did not take the medication. Per Dr. Arteaga's note, and per the Sukhjinder report this is inconsistent. I informed her I would consult with him in regards the plan moving forward with medication. Sukhjinder today is appropriate. UDS is negative for MOP/OPI today. We will send for confirmation today. We did discuss pending her MRI results proceeding with a cervical epidural C7/T1. Not available 12/23/2018 13:42:52 Plan of Treatment Reminders Order Date Submit Date Provider Last Modified By Organization Details Last Modified Time Details Appointments None recorded. Lab drug screen, urine 2018 019 [email or web address] [address], [facility] [address], [place], [address], 9 13:46:34 drug confirmat ion, urine 2018 019 [facility], [facility], [facility], [address] [place] [address], [address], 9 10:06:23 drug screen, urine 2018 019 [email or web address] [place], [facility] [address], [place], [address], 9 14:19:56 Referral None recorded. Procedures None recorded. Surgeries None recorded. Imaging MRI, cervical spine, w/o contrast 2018 019 [email or web address] [place] (Central[facility] Scheduling), [address] [place] [address] Dr, [place], [address], 9 11:38:08 Medication Orders None recorded. Patient TargetsNo targets recorded. Patient Instructions Encounter Date Encounter Id Patient Instructions Last Modified By Organization Details Last Modified Time 11/22/2018 [id number] medical record request* [email or web address] Not available 01/16/2019 09:44:25 Opioid Risk Tool (ORT)* [email or web address] Not available 11/22/2018 14:19:56 Reason for Referral None Reported. Results Created Date Observation Date Name Description Value Unit Range Abnormal Flag Note LastModifiedBy Organization Detail LastModifiedTime 11/22/19 19 11/22/2018 drug scree n, urine THC: negati ve Not Available [place] [address], [place], [address], 11/22/2018 13:51:47 11/22/1911/22/2018 drug scree n, urine Buprenorphin e: negati ve Not Available [place] [address], [place], [address], 11/22/2018 13:51:47 11/22/1911/22/2018 drug scree n, urine TCA: positi ve Not Available [place] [address], [place], [address], 11/22/2018 13:51:47 11/22/1911/22/2018 drug scree n, urine Barbiturates : negati ve Not Available [facility] [address], [place], [address], 11/22/2018 13:51:47 11/22/19 19 11/22/2018 drug scree n, urine Benzodiazepi damari: negati ve Not Available [facility] [address], [place], [address], 11/22/2018 13:51:47 11/22/19 19 11/22/2018 drug scree n, urine Methadone: negati ve Not Available [facility] [address] [address], [place], [address], 11/22/2018 13:51:47 11/22/19 19 11/22/2018 drug scree n, urine Amphetamines : negati ve Not Available [facility] [address], [place], [address], 11/22/2018 13:51:47 11/22/1911/22/2018 drug scree n, urine Morphine/Opi ates: negati ve Not Available [address], [place], [address], 11/22/2018 13:51:47 11/22/1911/22/2018 drug scree n, urine Oxycodone: negati ve Not Available [facility] [address], [place], [address], 11/22/2018 13:51:47 11/22/1911/22/2018 drug scree n, urine MDMA: negati ve Not Available [address], [place], [address], 11/22/2018 13:51:47 11/22/1911/22/2018 drug scree n, urine Cocaine: negati ve Not Available [facility] [address], [place], [address], 11/22/2018 13:51:47 11/22/19 19 11/22/2018 drug scree n, urine Methamphetam ine: negati ve Not Available [facility] [address], [place], [address], 11/22/2018 13:51:47 11/22/19 19 11/22/2018 Opioi d Risk Tool (ORT) * ORT 2 Not Available [place] [address], [place], [address], 11/22/2018 13:52:02 11/25/19 19 11/25/2018 drug confi rmati on, urine abnormal status abnormal Not Available [facility], [address], [address], 12/05/2018 10:06:28 11/25/19 19 11/25/2018 speci men valid ity testi ng urine creatinine 324 mg/dL 44-355 normal Pres ribed Medic ation s: [place] (Hydr ocodo ne), Viji a (Preg abali n), Cital opram (Lisa lopra m) Not Available [facility], [address], [address], 12/05/2018 10:06:27 11/25/19 19 11/25/2018 ssri citalopram 502 POSITI VE NG/mL 75 normal Not Available [facility], [address], [address], 12/05/2018 10:06:27 11/25/19 19 11/25/2018 ssri N-desmethylc italopram 144 POSITI VE NG/mL 75 normal Not Available [facility], [address], [address], 12/05/2018 10:06:27 11/25/19 19 11/25/2018 ssri fluoxetine Not Detect ed NG/mL 75 normal Not Available [facility], [address], [address], 12/05/2018 10:06:27 11/25/19 19 11/25/2018 ssri norfluoxetin e Not Detect ed NG/mL 75 normal Not Available [facility], [address], [address], 12/05/2018 10:06:27 11/25/19 19 11/25/2018 ssri paroxetine Not Detect ed NG/mL 75 normal Not Available [facility], [address], [address], 12/05/2018 10:06:27 11/25/19 19 11/25/2018 ssri sertraline Not Detect ed NG/mL 75 normal Pres rib Medic ation s: [place] (Hydr ocodo ne), Viji a (Preg abali n), Cital opram (Lisa lopra m) Not Available [facility], [address], [address], 12/05/2018 10:06:27 11/25/19 19 11/25/2018 amphe tamin es D/L - amphetamine Not Detect ed NG/mL 75 normal Not Available [facility], [address], [address], 12/05/2018 10:06:26 11/25/19 19 11/25/2018 amphe tamin es D/L - methamphetam ine Not Detect ed NG/mL 75 normal Not Available [facility], [address], [address], 12/05/2018 10:06:26 11/25/19 19 11/25/2018 amphe tamin es ritalinic acid Not Detect ed NG/mL 75 normal Pres rib Medic ation s: [place] (Hydr ocodo ne), Viji a (Preg abali n), Cital opram (Lisa lopra m) Not Available [facility], [address], [address], 12/05/2018 10:06:26 11/25/19 19 11/25/2018 gemini turat es butalbital Not Detect ed NG/mL 150 normal Not Available [facility], [address], [address], 12/05/2018 10:06:26 11/25/19 19 11/25/2018 gemini poloat es phenobarbita l Not Detect ed NG/mL 150 normal Pres ribed Medic ation s: [place] (Hydr ocodo ne), Viji a (Preg abali n), Cital opram (Lisa lopra m) Not Available [facility], [address], [address], 12/05/2018 10:06:26 11/25/19 19 11/25/2018 thera peuti c drugs carisoprodol -soma Not Detect ed NG/mL 75 normal Not Available [facility], [address], [address], 12/05/2018 10:06:25 11/25/19 19 11/25/2018 thera peuti c drugs meprobamate Not Detect ed NG/mL 75 [facility]: [place] (Hydr ocodo ne), Viji a (Preg abali n), Cital opram (Lisa lopra m) Not Available [facility], [address], [address], 12/05/2018 10:06:25 11/25/19 19 11/25/2018 benzo diaze pines 7-aminoclona zepam Not Detect ed NG/mL 60 normal Not Available [facility], [address], [address], 12/05/2018 10:06:25 11/25/19 19 11/25/2018 benzo diaze pines alprazolam Not Detect ed NG/mL 60 normal Not Available [facility], [address], [address], 12/05/2018 10:06:25 11/25/19 19 11/25/2018 benzo diaze pines alpha-hydrox yalprazolam Not Detect ed NG/mL 60 normal Not Available [facility], [address], [address], 12/05/2018 10:06:25 11/25/19 19 11/25/2018 benzo diaze pines lorazepam Not Detect ed NG/mL 60 normal Not Available [facility], [address], [address], 12/05/2018 10:06:25 11/25/19 19 11/25/2018 benzo diaze pines nordiazepam Not Detect ed NG/mL 60 normal Not Available [facility], [address], [address], 12/05/2018 10:06:25 11/25/19 19 11/25/2018 benzo diaze pines oxazepam Not Detect ed NG/mL 60 normal Not Available [facility], [address], [address], 12/05/2018 10:06:25 11/25/19 19 11/25/2018 benzo diaze pines temazepam Not Detect ed NG/mL 60 normal Presc ribed Medic ation s: [place] (Hydr ocodo ne), Viji a (Preg abali n), Cital opram (Lisa lopra m) Not Available [facility], [address], [address], 12/05/2018 10:06:25 11/25/1911/25/2018 sid analo gs gabapentin Not Detect ed NG/mL 225 normal Not Available [facility], [address], [address], 12/05/2018 10:06:24 11/25/19 19 11/25/2018 sid analo gs pregabalin Not Detect ed NG/mL 225 abnormal Not Available [facility], [address], [address], 12/05/2018 10:06:24 11/25/19 19 11/25/2018 sid analo gs zaleplon Not Detect ed NG/mL 7.5 normal Not Available [facility], [address], [address], 12/05/2018 10:06:24 11/25/19 19 11/25/2018 sid analo gs zolpidem Not Detect ed NG/mL 75 normal Pres ribed Medic ation s: [place] (Hydr ocodo ne), Viji a (Preg abali n), Cital opram (Lisa lopra m) Not Available [facility], [address], [address], 12/05/2018 10:06:24 11/25/19 19 11/25/[address] antag buprenorphin e Not Detect ed NG/mL 7.5 normal Not Available [facility], [address], [address], 12/05/2018 10:06:24 11/25/19 19 11/25/[address] antag norbuprenorp rachele Not Detect ed NG/mL 37.5 normal Not Available [facility], [address], [address], 12/05/2018 10:06:24 11/25/19 19 11/25/[address] antag naloxone Not Detect ed NG/mL 75 normal Not Available [facility], [address], [address], 12/05/2018 10:06:24 11/25/19 19 11/25/[address] antag pentazocine Not Detect ed NG/mL 22.5 normal Pres ribed Medic ation s: [place] (Hydr ocodo ne), Viji a (Preg abali n), Cital opram (Lisa lopra m) Not Available [facility], [address], [address], 12/05/2018 10:06:24 11/25/19 19 11/25/2018 opiat es/op ioids codeine Not Detect ed NG/mL 75 normal Not Available [facility], [address], [address], 12/05/2018 10:06:23 11/25/19 19 11/25/2018 opiat es/op ioids fentanyl Not Detect ed NG/mL 6 normal Not Available [facility], [address], [address], 12/05/2018 10:06:23 11/25/19 19 11/25/2018 opiat es/op ioids norfentanyl Not Detect ed NG/mL 6 normal Not Available [facility], [address], [address], 12/05/2018 10:06:23 11/25/19 19 11/25/2018 opiat es/op ioids morphine Not Detect ed NG/mL 75 normal Not Available [facility], [address], [address], 12/05/2018 10:06:23 11/25/19 19 11/25/2018 opiat es/op ioids hydrocodone Not Detect ed NG/mL 75 abnormal Not Available [facility], [address], [address], 12/05/2018 10:06:23 11/25/19 19 11/25/2018 opiat es/op ioids norhydrocodo ne Not Detect ed NG/mL 75 abnormal Not Available [facility], [address], [address], 12/05/2018 10:06:23 11/25/19 19 11/25/2018 opiat es/op ioids hydromorphon e Not Detect ed NG/mL 75 abnormal Not Available [facility], [address], [address], 12/05/2018 10:06:23 11/25/19 19 11/25/2018 opiat es/op ioids oxycodone Not Detect ed NG/mL 37.5 normal Not Available [facility], [address], [address], 12/05/2018 10:06:23 11/25/19 19 11/25/2018 opiat es/op ioids noroxycodone Not Detect ed NG/mL 37.5 normal Not Available [facility], [address], [address], 12/05/2018 10:06:23 11/25/19 19 11/25/2018 opiat es/op ioids oxymorphone Not Detect ed NG/mL 75 normal Not Available [facility], [address], [address], 12/05/2018 10:06:23 11/25/19 19 11/25/2018 opiat es/op ioids meperidine Not Detect ed NG/mL 37.5 normal Not Available [facility], [address], [address], 12/05/2018 10:06:23 11/25/19 19 11/25/2018 opiat es/op ioids normeperidin e Not Detect ed NG/mL 37.5 normal Not Available [facility], [address], [address], 12/05/2018 10:06:23 11/25/19 19 11/25/2018 opiat es/op ioids methadone Not Detect ed NG/mL 75 normal Not Available [facility], [address], [address], 12/05/2018 10:06:23 02/25/11/25/2018 opiat es/op ioids methadone (EDDP) Not Detect ed NG/mL 75 normal Not Available [facility], [address], [address], 12/05/2018 10:06:23 11/25/19 19 11/25/2018 opiat es/op ioids propoxyphene Not Detect ed NG/mL 75 normal Not Available [facility], [address], [address], 12/05/2018 10:06:23 11/25/19 19 11/25/2018 opiat es/op ioids norpropoxyph nadja Not Detect ed NG/mL 75 normal Not Available [facility], [address], [address], 12/05/2018 10:06:23 11/25/19 19 11/25/2018 opiat es/op ioids tapentadol Not Detect ed NG/mL 37.5 normal Not Available [facility], [address], [address], 12/05/2018 10:06:23 11/25/19 19 11/25/2018 opiat es/op ioids tramadol Not Detect ed NG/mL 75 normal Not Available [facility], [address], [address], 12/05/2018 10:06:23 11/25/19 19 11/25/2018 opiat es/op ioids M-ory-uldcya -cis-tramado l Not Detect ed NG/mL 75 normal Presc ribed Medic ation s: [place] (Hydr ocodo ne), Viji a (Preg abali n), Cital opram (Lisa lopra m) Not Available [facility], [address], [address], 12/05/2018 10:06:23 11/25/19 19 11/25/2018 drug confi rmati on, urine comment: See Compon ents normal Presc ribed Medic ation s: [place] (Hydr ocodo ne), Viji a (Preg abali n), Cital opram (Lisa lopra m) Not Available [facility], [address], [address], 12/05/2018 10:06:23 12/24/19 19 12/23/2018 drug scree n, urine THC: negati ve Not Available [facility] [address], [place], [address], 12/23/2018 12:56:19 12/24/1912/23/2018 drug scree n, urine Buprenorphin e: negati ve Not Available [facility] [address], [place], [address], 12/23/2018 12:56:19 12/24/1912/23/2018 drug scree n, urine TCA: positi ve Not Available [place] [address], [place], [address], 12/23/2018 12:56:19 12/24/1912/23/2018 drug scree n, urine Barbiturates : negati ve Not Available [place] [address], [place], [address], 12/23/2018 12:56:19 12/24/1912/23/2018 drug scree n, urine Benzodiazepi damari: negati ve Not Available [facility] [address] [facility] [address] [address], [place], [address], 12/23/2018 12:56:19 12/24/1912/23/2018 drug scree n, urine Methadone: negati ve Not Available [facility] [address], [place], [address], 12/23/2018 12:56:19 12/24/1912/23/2018 drug scree n, urine Amphetamines : negati ve Not Available [place] [address], [place], [address], 12/23/2018 12:56:19 12/24/19 19 12/23/2018 drug scree n, urine Morphine/Opi ates: negati ve Not Available [address], [place], [address], 12/23/2018 12:56:19 12/24/1912/23/2018 drug scree n, urine Oxycodone: negati ve Not Available [address], [place], [address], 12/23/2018 12:56:19 12/24/19 19 12/23/2018 drug scree n, urine MDMA: negati ve Not Available [address], [place], [address], 12/23/2018 12:56:19 12/24/1912/23/2018 drug scree n, urine Cocaine: negati ve Not Available [address], [place], [address], 12/23/2018 12:56:19 12/24/1912/23/2018 drug scree n, urine Methamphetam ine: negati ve Not Available [address], [place], [address], 12/23/2018 12:56:19 12/25/1912/24/2018 speci men valid ity testi ng urine creatinine 57 mg/dL 44-355 normal Presc ribed Medic ation s: [place] codon e (Hydr ocodo ne), Amitr yptyl ine (Willie ripty line) , Escit alopr am (Lisa lopra m) Not Available [facility], [address], [address], 01/06/2019 15:22:37 12/25/192019 opioi ds commo nweal th buprenorphin e Not Detect ed NG/mL 7.5 normal Not Available [facility], [address], [address], 01/06/2019 15:22:37 12/25/19 19 12/24/2018 opioi ds commo nweal th norbuprenorp rachele Not Detect ed NG/mL 37.5 normal Not Available [facility], [address], [address], 01/06/2019 15:22:37 12/25/19 19 12/24/2018 opioi ds commo nweal th fentanyl Not Detect ed NG/mL 6 normal Not Available [facility], [address], [address], 01/06/2019 15:22:37 12/25/19 19 12/24/2018 opioi ds commo nweal th norfentanyl Not Detect ed NG/mL 6 normal Not Available [facility], [address], [address], 01/06/2019 15:22:37 12/25/19 19 12/24/2018 opioi ds commo nweal th methadone Not Detect ed NG/mL 75 normal Not Available [facility], [address], [address], 01/06/2019 15:22:37 12/25/19 19 12/24/2018 opioi ds commo nweal th codeine Not Detect ed NG/mL 75 normal Not Available [facility], [address], [address], 01/06/2019 15:22:37 12/25/19 19 12/24/2018 opioi ds commo nweal th morphine Not Detect ed NG/mL 75 normal Not Available [facility], [address], [address], 01/06/2019 15:22:37 12/25/19 19 12/24/2018 opioi ds commo nweal th hydrocodone 96 POSITI VE NG/mL 75 normal Not Available [facility], [address], [address], 01/06/2019 15:22:37 12/25/19 19 12/24/2018 opioi ds commo nweal th norhydrocodo ne 99 POSITI VE NG/mL 75 normal Not Available [facility], [address], [address], 01/06/2019 15:22:37 12/25/19 19 12/24/2018 opioi ds commo nweal th hydromorphon e Not Detect ed NG/mL 75 normal Not Available [facility], [address], [address], 01/06/2019 15:22:37 12/25/19 19 12/24/2018 opioi ds commo nweal th naloxone Not Detect ed NG/mL 75 normal Not Available [facility], [address], [address], 01/06/2019 15:22:37 12/25/19 19 12/24/2018 opioi ds commo nweal th pentazocine Not Detect ed NG/mL 22.5 normal Not Available [facility], [address], [address], 01/06/2019 15:22:37 12/25/19 19 12/24/2018 opioi ds commo nweal th meperidine Not Detect ed NG/mL 37.5 normal Not Available [facility], [address], [address], 01/06/2019 15:22:37 12/25/19 19 12/24/2018 opioi ds commo nweal th normeperidin e Not Detect ed NG/mL 37.5 normal Not Available [facility], [address], [address], 01/06/2019 15:22:37 12/25/19 19 12/24/2018 opioi ds commo nweal th oxycodone Not Detect ed NG/mL 37.5 normal Not Available [facility], [address], [address], 01/06/2019 15:22:37 12/25/19 19 12/24/2018 opioi ds commo nweal th oxymorphone Not Detect ed NG/mL 75 normal Not Available [facility], [address], [address], 01/06/2019 15:22:37 12/25/19 19 12/24/2018 opioi ds commo nweal th propoxyphene Not Detect ed NG/mL 75 normal Not Available [facility], [address], [address], 01/06/2019 15:22:37 12/25/19 19 12/24/2018 opioi ds commo nweal th norpropoxyph nadja Not Detect ed NG/mL 75 normal Not Available [facility], [address], [address], 01/06/2019 15:22:37 12/25/19 19 12/24/2018 opioi ds commo nweal th tapentadol Not Detect ed NG/mL 37.5 normal Not Available [facility], [address], [address], 01/06/2019 15:22:37 12/25/19 19 12/24/2018 opioi ds commo nweal th tramadol Not Detect ed NG/mL 75 normal Not Available [facility], [address], [address], 01/06/2019 15:22:37 12/25/19 19 12/24/2018 opioi ds commo nweal th T-jzq-firrxc -cis-tramado l Not Detect ed NG/mL 75 normal Not Available [facility], [address], [address], 01/06/2019 15:22:37 12/25/19 19 12/24/2018 opioi ds commo nweal th noroxycodone Not Detect ed NG/mL 37.5 normal Not Available [facility], [address], [address], 01/06/2019 15:22:37 12/25/19 19 12/24/2018 opioi ds commo nweal th methadone (EDDP) Not Detect ed NG/mL 75 normal Presc ribed Medic ation s: [place] codon e (Hydr ocodo ne), Amitr yptyl ine (Willie ripty line) , Escit alopr am (Lisa lopra m) Not Available [facility], [address], [address], 01/06/2019 15:22:37 12/25/19 19 12/24/2018 opiat es, quant itati ve, urine comment: See Compon ents normal Presc ribed Medic ation s: [place] codon e (Hydr ocodo ne), Amitr yptyl ine (Willie ripty line) , Escit alopr am (Lisa lopra m) Not Available [facility], [address], [address], 01/06/2019 15:22:36 Result Notes None recorded. Problems Name Problem SNOMED Code Status Onset Date Resolution Date Notes Provider Name and Address Organization Details Recorded Time Neck pain 05867278 Active 2018 DOLORES Lawton - [facility] 9 14:12:01 Cervical radiculopathy 88376863 Active 2018 DOLORES Gallardo - [facility] 9 14:19:26 Problem Notes None recorded. Procedures Surgical History Date Name Laterality Status Provider Name and Address Organization Details Recorded Time Knee Surgery completed Kendy Messer [facility] 11/22/2018 13:41:44 Joint Replacement completed Kendy Messer [facility] 11/22/2018 13:41:44 Carpal Tunnel Release completed Knedy Messer [facility] 11/22/2018 13:41:44 Imaging Results None recorded. Procedure Notes None recorded. Medical Equipment None Reported. Allergies Allergen ID Allergen Name Allergen Category Reaction Reaction Severity Criticality Documentation Date Start Date Code Code System Note Provider Name and Address Organization Details Recorded Time 61984 ibuprofen medicatio n itching nausea rash Not available Not available Not available Not available 11/22/2018 5640 RxNorm Kendy servin [facility] 9 13:41:22 Medications Name Sig Start Date Stop Date Status Note LastModified by Organization Details LastModified Time atorvastatin 40 mg tablet active Not Available Not Available Not Available doxycycline hyclate 100 mg capsule active Not Available Not Available N ot Available tizanidine 4 mg tablet active Not Available Not Available No t Available fluconazole 150 mg tablet active Not Available Not Available Not Available levothyroxin e 300 mcg tablet active Not Available Not Available Not Available hydrocodone 5 mg-acetamino phen 325 mg tablet Take 1 tablet 4 times a day by oral route. active Not Available Not Available No t Available prednisone 20 mg tablet active Not Available Not Available Not Available ropinirole 3 mg tablet active Not Available Not Available No t Available hydrocodone 10 mg-acetamino phen 325 mg tablet 12/23 completed Not Available Not Available Not Available amitriptylin e 50 mg tablet 12/23 completed Not Available Not Available Not Available Novolin R Regular U-100 Insulin 100 unit/mL injection solution active Not Available Not Available Not Available furosemide 80 mg tablet active Not Available Not Available Not Available doxycycline monohydrate 100 mg capsule 12/23 completed Not Available Not Available Not Available hydrocodone 7.5 mg-acetamino phen 325 mg tablet 12/23 completed Not Available Not Available Not Available ropinirole 2 mg tablet active Not Available Not Available No t Available pantoprazole 40 mg tablet,delay ed release active Not Available Not Available N ot Available nystatin 100,000 unit/gram topical cream active Not Available Not Available Not Available bupropion HCl 75 mg tablet 12/23 completed Not Available Not Available Not Available metoprolol tartrate 50 mg tablet active Not Available Not Available No t Available nitroglyceri n 0.4 mg sublingual tablet active Not Available Not Available Not Available insulin syringe U-100 with needle 1 mL 31 gauge x 02/13 active Not Available Not Available Not Available losartan 100 mg tablet active Not Available Not Available No t Available amitriptylin e 100 mg tablet active Not Available Not Available Not Available Ventolin HFA 90 mcg/actuatio n aerosol inhaler active Not Available Not Available Not Available escitalopram 20 mg tablet Take 1 tablet every day by oral route. active Not Available Not Available No t Available Novolog FlexPen U-100 Insulin aspart 100 unit/mL (3 mL) subcutaneous active Not Available Not Available Not Available Cymbalta 60 mg capsule,jerel yed release Take 1 capsule every day by oral route. active Not Available Not Available No t Available tizanidine 4 mg capsule 12/23 completed Not Available Not Available Not Available Lyrica 150 mg capsule Take 1 capsule twice a day by oral route. 12/23 completed Not Available Not Available Not Available albuterol active Not Available Not Hodan ilable Not Available Elavil 12/23 completed Not Available Not Available Not Available Lasix active Not Available Not Availa ble Not Available ropinirole 12/23 completed Not Available Not Available Not Available Zocor active Not Available Not Availa ble Not Available Synthroid active Not Available Not Hodan ilable Not Available Tricor active Not Available Not Availa ble Not Available metoprolol succinate active Not Available Not Available No t Available Cozaar active Not Available Not Availa ble Not Available panthenol (bulk) active Not Available Not Available Not Available fenofibrate 54 mg tablet active Not Available Not Available Not Available Eliquis 5 mg tablet active Not Available Not Available Not Available Eliquis 12/23 completed Not Available Not Available Not Available Tresiba FlexTouch U-200 insulin 200 unit/mL (3 mL) subcutaneous pen active Not Available Not Available Not Available Tresiba FlexTouch U-100 insulin 100 unit/mL (3 mL) subcutaneous pen active Not Available Not Available Not Available Tresiba FlexTouch U-100 active Not Available Not Available Not Available bupropion HCl 150 mg tablet,12 hr sustained-re lease(smokin g deterrent) active Not Available Not Available Not Available Novolin 70-30 FlexPen U-100 active Not Available Not Available Not Available Vitals Date Recorded Body height Body mass index (BMI) Body weight Oxygen saturation Oxygen saturation in Arterial blood by Pulse oximetry Heart rate Systolic blood pressure Diastolic blood pressure Provider Name and Address Organization Details Last Updated DateTime 9 167.64 cm 85.1 kg/m2 502466. 18 g 97 % 97 % 99 /min 154 mm[Hg] 74 mm[Hg] Kendy [facility]er [facility] 9 13:54:48 Date Recorded Body height Body mass index (BMI) Body weight Heart rate Oxygen saturation Oxygen saturation in Arterial blood by Pulse oximetry Systolic blood pressure Diastolic blood pressure Provider Name and Address Organization Details Last Updated DateTime 9 167.64 cm 85.1 kg/m2 333418. 18 g 69 /min 99 % 99 % 134 mm[Hg] 84 mm[Hg] Kelly Dickson [facility] 9 13:00:58 Social History Question Answer Notes LastModified by Organizat ion Details LastModified Time Tobacco Smoking Status Former Smoker Kendylori BallardMesserblu servin [facility] 11/22/2018 13:41:38 What Is Your Level Of Caffeine Consumption? Moderate Information not available 11/22/2018 How Much Tobacco Do You Chew? None Information not available 11/22/2018 Are You Deaf Or Do You Have Serious Difficulty Hearing? No [email or web address] Information not available 11/22/2018 Which Illicit Or Recreational Drugs Have You Used? Prescriptions [email or web address] Information not available 11/22/2018 Education 12 Information no t available 12/23/2018 Hard Of Hearing Or Deaf In One Or Both Ears? No [email or web address] Information not available 11/22/2018 Prescription Drug Abuse No Information not available 12/23/2018 Disability Yes Information no t available 12/23/2018 History Of Sexual Abuse No Information not available 12/23/2018 Marital Status Single Informati on not available 11/22/2018 What Was The Date Of Your Most Recent Tobacco Screening? 12/23/2018 Information not available 04/23/2019 General Stress Level Medium [email or web address] Information not available 11/22/2018 Has Tobacco Cessation Counseling Been Provided? No Information not available 12/23/2018 Do You Have Difficulty Walking Or Climbing Stairs? Yes [email or web address] Information not available 11/22/2018 Sex: Unknown Functional Status Question Answer Note LastModified by Organizat ion Details LastModified Time What is your level of alcohol consumption? None [email or web address] Information not available 11/22/2018 Are you able to walk? YESASSIST [email or web address] Information not available 11/22/2018 Do you have difficulty doing errands alone? Yes [email or web address] Information not available 11/22/2018 What is your occupation? Unemployed Information not available 12/23/2018 Do you have difficulty dressing or bathing? No [email or web address] Information not available 11/22/2018 What is your exercise level? Occasional Information not available 11/22/2018 Mental Status Question Answer Note LastModified by Organization D etails LastModified Time Do you have difficulty concentrating, remembering or making decisions? No [email or web address] Information no t available 11/22/2018 Family History Relationship Description Onset Age of this Age Resolved Age Notes LastModified by Organization Details LastModified Time Maternal Grandmother Hypertensive disorder Not available 11/02 13:41:28 Father Hypertensive disorder [email or web address] Not available 11/02 13:41:28 Mother Fibromyalgia [email or web address] Not av ailable 11/22/2018 13:41:28 Mother Hypertensive disorder [email or web address] Not available 11/02 13:41:28 Brother Hypertensive disorder [email or web address] Not available 11/02 13:41:28 Medical History Condition Response Bipolar Disease N Coronary Artery Disease N Gout N Seizure Disorder N Osteoarthritis N Hernia N Head Trauma/Injury N Depression Y Anemia N Heart Attack (NM) N Anxiety Disorder Y Diabetes Y Cardiomyopathy N Bleeding Disorder N AIDS/HIV N Inflammatory Bowel Disease N Cancer N Stroke N Dementia N Substance Abuse N Sleep Apnea N Hepatitis N Liver Disease N Heart Disease N Rheumatoid Arthritis N Chronic Low Back Pain Y Headaches N Fibromyalgia N Hypertension N Osteoporosis N Kidney Disease N Autoimmune Disease N Gynecological HistoryNo gynecological history recorded. Obstetrics History GPAL:G 0 P 0 0 0 0 Past Encounters Encounter ID Performer Location Encounter Start Date Encounter Closed Date Diagnosis/Indication Diagnosis SNOMED-CT Code Diagnosis ICD10 Code Diagnosis Note [id number] Juaquin GruberdonnieDO [facility] [address] [place] [address] 11/22/2018 13:15:40 11/22/2018 14:54:03 Long-term drug therapy 304988226 Z79.899 ORT and PHQ-9 testing was completed electronic ally by the patient to evaluate the patient''s pyschosoci al health to better determine baseline risk as we consider initiating opioid medication s. The patient's ORT score of 2 indicates low risk potential for medication misuse. The patients PHQ-9 of 14 indicates moderate depression . Baseline results. Will be taken into considerat ion if treatment with opioid medication is initiated in the future. Neck pain 77905397 M54.2 Cervical radiculopathy 83900086 M54.12 Medication monitoring 39 2147975 Z79.899 [id number] Austin Stoner MD [facility] [address] [place] [address] 12/23/2018 12:50:46 12/23/2018 14:47:38 Cervical radiculopathy 84690419 M54.12 Long-term drug therapy 082640948 Z79.899 ORT and PHQ-9 testing was completed electronic ally by the patient to evaluate the patient''s pyschosoci al health to better determine baseline risk as we consider initiating opioid medication s. The patient's ORT score of 2 indicates low risk potential for medication misuse. The patients PHQ-9 of 14 indicates moderate depression . Baseline results. Will be taken into considerat ion if treatment with opioid medication is initiated in the future. Medication monitoring 39 4101465 Z79.899 Health Concerns Section Related Observation LastModified by Organization Detai ls LastModified Time None Recorded Concern Status LastModified by Organization Details LastModified Time None Recorded Advance Directives Directive None Recorded Payers Insurance Date Sequence Insurance Name Policy Number Policy Gonzales Covered Member ID Gonzales Member ID Guarantor Name 01/18/2019 1 MEDICARE-[employer] [facility] (MEDICARE) Seema Delacruz [id number] Seema Delacruz 01/18/2019 2 [facility] (MEDICAID HMO) Seema Delacruz [id number] Seema Delacruz 01/03/2019 2 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 Seema Delacruz Notes Date Note Type Note Provider Name and Address Organization Details Recorded Time 11/22/2018 text/html Neck painReporte d bypatient.Onset:4 months Location:right paraspinal; radiating to the bilateral upper extremities to the hand Duration:constant Context:started without cause Quality:sharp Severity:current pain level: 7/10; worst pain level: 10/10 Alleviating Factors:heat; ice Aggravating Factors:upper extremity activities Timing:constant Associated Symptoms:no weakness; no dizziness; no popping/clicking; no bladder incontinence; no bowel incontinence;numbn ess;tingling;pain in upper extremities Prior Imaging:none Previous Cervical Surgery:none Previous Injections:none Previous PT:completed PT; response to therapy: made pain worse Previous care transition mgr:none Medications History:NSAIDS: (Celebrex, Diclofenac and Mobic (not effective)); muscle relaxants: (Flexeril, Tizanidine, Robaxin and Baclofen (not effective)); neuropathics: (Gabapentin (unable to tolerate) Lyrica (minimal)); opioid pain medications: ([place] (not effective)) Working:no Prior Pain Management:yes DOLORES Gallardo - [facility] 11/25/2018 10:44:33 12/23/2018 text/html Follow-up (meds & injections)Reporte d bypatient.Improvem ent:Pain is the same as compared to last visit. Current Analgesics:Opioids - hydrocodone; No medications from our office. Pharmacy verified. Pain Scores:Average pain- 9/10; Current pain- 8/10; Worst pain- 10/10 Activities of Daily Living (ADL):Living independently.; Able to bathe/groom without assistance.;Unable to complete home care provider.;Unable to ambulate without assistance.(cane); Unable to work.;Unable to exercise. Adverse Reactions:No nausea.; No vomiting.; No constipation.; No itching.; No sedation.; No respiratory depression.; No sexual dysfunction. Physical Therapy:Has not completed.Neck painReported bypatient.Onset:4 months Location:right paraspinal; midline spine; radiating to the bilateral upper extremities to the hand; R>L Duration:constant Context:started without cause Quality:sharp Severity:current pain level: 8/10; worst pain level: 10/10; severe Alleviating Factors:heat; ice Aggravating Factors:upper extremity activities Timing:constant Associated Symptoms:no weakness; no dizziness; no popping/clicking; no bladder incontinence; no bowel incontinence;numbn ess;tingling;pain in upper extremities Prior Imaging:none Previous Cervical Surgery:none Previous Injections:none Previous PT:completed PT; response to therapy: made pain worse Previous care transition mgr:none Medications History:NSAIDS: (Celebrex, Diclofenac and Mobic (not effective)); muscle relaxants: (Flexeril, Tizanidine, Robaxin and Baclofen (not effective)); neuropathics: (Gabapentin (unable to tolerate) Lyrica (minimal)); opioid pain medications: ([place] (not effective)) Working:no Prior Pain Management:yes Austin Stoner MD [address] [place] [address], [id number], [facility] 12/24/2018 12:57:11 OBGyn Episode No OBEpisode recorded.
--- OUTSIDE RECORDS SUMMARY | 2025-03-09 08:00 | XMS_ITS | Encounter Summary ---
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 Name Role Phone Unavailable Primary Care Provider Unavailabl e Encounter Details Date Type Department Care Team (Late st Contact Info) Description 03/29/2022 Transcribed Document [facility] Family [place] [place] [address] ProviderStefani MD [address] [place] [address] Social History Tobacco Use Types Packs/Day Years Used Date Smoking Tobacco: Never Assessed Comments Unknown Sex and Gender Information Value Date Recorded Sex Assigned at Not on file Legal Sex Female 5:12 PM CDT Gender Identity Not on file Sexual Orientation Not on file documented as of this encounter Miscellaneous Notes * Cerner Conversion Note - Stefani ProviderMD - 03/29/2022 8:11 AM CDT Pre Procedure Adult Entered On: 03/29/2022 8:15 EDT Performed On: 03/29/2022 8:11 EDT by Justina Childers RN Height and Weight, Clinical Dosing Height Source : Stated Height Entry Format : Ruby Height, Feet : 5 ft(Converted to: 152 cm, 60 Inch) Height, Inches : 6 Inch(Converted to: 0 ft 6 Inch, 15.24 cm) Clinical Height : 167.64 cm Weight Source : Standing scale Weight Entry Format : Ruby Clinical Dosing Weight : 123.64 kg Weight, Pounds : 272 lb Body Surface Area (BSA) : 2.28 m2 Body Mass Index : 44 kg/m2 (>HHI) [place] Body Weight : 59 kg Justina Childers RN - 03/29/2022 8:11 EDT Health Histories Smoking Status : Former smoker, quit more than 30 days ago Smokeless Tobacco Status : Never Justina Childers RN - 03/29/2022 8:11 EDT Social History (As Of: 03/29/2022 08:15:12 EDT) Tobacco: Former smoker, quit more than 30 days ago Smoking Status. Last Used: 2018. (Last Updated: 03/29/2022 08:12:04 EDT by Justina Childers, VICTORIANO) Alcohol: Alcohol Use History No. (Last Updated: 03/29/2022 08:12:07 EDT by uJstina Childers RN) Infectious Disease History Does patient have symptoms of COVID-19? : No Tested for COVID19 in the past 14 days : No, Patient stated Does the Patient state known exposure to a COVID-19 positive case in the last 14 days? : No Patient Vaccinated for COVID-19 : Partially vaccinated or need booster Does Patient want a COVID-19 Vaccine? : No Justina Childers RN - 03/29/2022 8:11 EDT Infectious Disease Risk Screening Grid Cough < 2 wks of unknown origin : NO Cough > 2 weeks : NO Blood in Sputum : NO Fever or self-reported Fever : NO Rash of unknown origin : NO Headache : NO Stiff neck : NO Night Sweats : NO Unexplained Weight Loss : NO Diarrhea (3 episode per day) : NO Justina Childers RN - 03/29/2022 8:11 EDT Physical contact outside [place] in the last 30 days : No Hospitalized in Foreign Country : No Infectious Disease History : Chicken pox/Shingles INF Disease TB Screening Calc : 0 INF Disease Recent Travel Calc : 0 Justina Childers RN - 03/29/2022 8:11 EDT COVID19 PreProcedure Screening Is this an Emergent or Add on Procedure? : No Date PreProcedure COVID-19 test known? : No Has patient been isolated since the test : No Exposed to COVID19 symptoms since test? : No Justina Childers RN - 03/29/2022 8:11 EDT Anesthesia/Transfusion History Family History of Anesthesia Reaction : Prior transfusion without reaction Transfusion History : Prior anesthesia without reaction Family History of Anesthesia Reaction : None Justina Childers RN - 03/29/2022 8:11 EDT Functional Assessment Living Situation : Home Patient Lives With : Friend(s) Current Home Treatments : CPAP Justina Childers RN - 03/29/2022 8:11 EDT Moodus Suicide Severity Rating Scale (C-SSRS) CSSRS Past Month Wish to be : No CSSRS Past Month Suicidal Thoughts : No CSSRS Lifetime Suicide Behavior : No Suicide Severity Rating Score : 0 Suicide Severity Rating : No Additional Care Required at this time Justina Childers RN - 03/29/2022 8:11 EDT Psychosocial History Currently in Unsafe Situation : No Justina Childers RN - 03/29/2022 8:11 EDT Advance Directive Patient has Advance Directive *Q : No, patient refuses Advance Directive information Justina Childers RN - 03/29/2022 8:11 EDT Teaching/Learning Assessment Barriers To Learning : None evident Individuals Taught : Patient, Friend Justina Childers RN - 03/29/2022 8:11 EDT Education Topics, Periop Preadmission Perioperative Education Grid Arrival Time/Place : Verbalizes understanding Falls : Verbalizes understanding Incentive Spirometry : Verbalizes understanding Infection Control : Verbalizes understanding IV's : Verbalizes understanding NPO Status/Directions : Verbalizes understanding Pain Management : Verbalizes understanding Postoperative Care Preparations : Verbalizes understanding Preprocedure Preparations : Verbalizes understanding Preprocedure Tests/Labs : Verbalizes understanding Responsible Adult : Verbalizes understanding Justina Childers RN - 03/29/2022 8:11 EDT General Info Support Person/Pt Rep Name : Selina nguyen Support Person/Pt Rep Contact Information : [phone] Want Family/Rep/Phys Notified of Admit : No Emergency Contact #1 : . Emergency Contact #1 Phone Number : . Emergency Contact #1 Relationship : . Emergency Contact #2 : . Emergency Contact #2 Phone Number : . Emergency Contact #2 Relationship : . Primary Language : Kyrgyz Communication Barrier : None Applications Administrator Needed : No Justina Childers RN - 03/29/2022 8:11 EDT Sleep Apnea Risk Assmt BiPAP/CPAP Ordered for Home Use : Yes Hx of Obstructive Sleep Apnea Diagnosis : Yes BiPAP/CPAP Used at Home : Yes Age over 50 Years Old : Yes Gender Male : No Justina Childers RN - 03/29/2022 8:11 EDT Kyle Scale Kyle Sensory Perception : No impairment Kyle Moisture : Rarely moist Kyle Activity : Walks frequently Kyle Mobility : No limitation Kyle Nutrition : Adequate Kyle Friction and Shear : No apparent problem Kyle Score : 22 Justina Childers RN - 03/29/2022 8:11 EDT Pain Assessment Pain Assessment : Initial assessment Pain Scale Used : 0-10 Scale Justina Childers RN - 03/29/2022 8:11 EDT Fall Risk Scales ABCs Fall Injury Risk Identification : None COOK Hx Falls Immediate/Within 3 Months : No Cook Secondary Diagnosis : Yes COKO Use of Ambulatory Aid : None COOK IV Therapy or IV Access : Yes Cook Gait/Transferring : Normal, bedrest, immobile Cook Mental Status : Oriented to own ability Cook Fall Risk Score : 35 COOK Fall Scale Risk Level : 25-45 Medium Risk [place] Fall Interventions : Adequate lighting, Assistive devices within reach, Bed in low position, Call device within reach, Personal items within reach, Reinforced to call for assistance before getting out of bed, Room free of clutter/spills Justina Childers RN - 03/29/2022 8:11 EDT Valuables and Belongings Valuables and Belongings : Clothing Clothing : Common streetwear Clothing Disposition : Bedside, With family, Declines to send to security/safe Justina Childers RN - 03/29/2022 8:11 EDT Pain Scale Intensity : 0 Justina Childers RN - 03/29/2022 8:11 EDT Image 4 - Images currently included in the form version of this document have not been included in the text rendition version of the form. documented in this encounter Plan of Treatment Not on file documented as of this encounter Visit Diagnoses Not on filedocumented in this encounter
--- OUTSIDE RECORDS SUMMARY | 2025-03-09 08:00 | XMS_ITS | Encounter Summary ---
Author Organization [facility] Address [address] [place] [address] Care Team Providers Care Deep Fat Fry Cook Name Role Phone Unavailable Primary Care Provider Unavailabl e Encounter Details Date Type Department Care Team (Late st Contact Info) Description 03/29/2022 Transcribed Document [facility] Cardiology [address] [facility] [address] [place] [address] Faustino West MD [address] [place], [place] [id number] Social History Tobacco Use Types Packs/Day Years Used Date Smoking Tobacco: Never Assessed Comments Unknown Sex and Gender Information Value Date Recorded Sex Assigned at Not on file Legal Sex Female 5:12 PM CDT Gender Identity Not on file Sexual Orientation Not on file documented as of this encounter Miscellaneous Notes * Cerner Conversion Note - Faustino West MD - 03/29/2022 8:30 AM EDT Patient: SEEMA DELACRUZ Age: 51 years Sex: Female : 1970 Associated Diagnoses: None Author: FAUSTINO WEST MD-CAR Basic Information PCP: Dr. Amador Re Etcher: Noris Fallon MD Chief Complaint Abnormal Stress History of Present Illness 51 year old morbidly obese female with a history of PE/DVT (2016), HTN, HLD, hypothyroidism, IDDM, neuropathy, chronic back pain with pain pump implanted, COPD, MEGHAN. Patient has been having worsening shortness of breath. Referred to Dr. Fallon for evaluation. Lexiscan: 03/08/2022 - Anterior apical area of fixed defect with possible ischemia. Patient presents today for elective LHC with Dr. Faustino West. Review of Systems Constitutional: Negative except as documented in history of present illness. Eye: Negative except as documented in history of present illness. Ear/Nose/Mouth/Throat: Negative except as documented in history of present illness. Respiratory: Negative except as documented in history of present illness. Cardiovascular: Negative except as documented in history of present illness. Gastrointestinal: Negative except as documented in history of present illness. Genitourinary: Negative except as documented in history of present illness. Hematology/Lymphatics: Negative except as documented in history of present illness. Endocrine: Negative except as documented in history of present illness. Immunologic: Negative except as documented in history of present illness. Musculoskeletal: Negative except as documented in history of present illness. Integumentary: Negative except as documented in history of present illness. Neurologic: Alert and oriented X4. Psychiatric: Negative except as documented in history of present illness. Health Status Allergies (4) Active Reaction Avelox None Documented ibuprofen None Documented Inapsine None Documented Rocephin None Documented No qualifying data available Allergies: Allergic Reactions (Selected) Severity Not Documented Avelox- No reactions were documented. Ibuprofen- No reactions were documented. Inapsine- No reactions were documented. Rocephin- No reactions were documented. Current medications: (Selected) Inpatient Medications Ordered Normal Saline Flush: 10 mL, IV Push, Q12H Normal Saline Flush: 10 mL, IV Push, See Comment, PRN: IV Use Sodium Chloride 0.9% intravenous solution 500 mL: Titrate, IntraVENous Documented Medications Documented DULoxetine: 60 mg, Oral, Daily, 0 Refill(s) HumuLIN 70/30: 28 Units, SubCutaneous, BIDAC, 0 Refill(s) Ozempic 2 mg/1.5 mL (0.25 mg or 0.5 mg dose) subcutaneous solution: 0 Refill(s) benzonatate 100 mg oral capsule: 1 Cap, Oral, Q8H, PRN: as needed for cough, 30 Cap, 0 Refill(s) carvedilol 25 mg oral tablet: 1 Tab, Oral, BID, 180 Tab, 0 Refill(s) escitalopram 20 mg oral tablet: 1 Tab, Daily, 0 Refill(s) fenofibrate 54 mg oral tablet: 1 Tab, Daily, 0 Refill(s) furosemide 80 mg oral tablet: 1 Tab, BID, 0 Refill(s) gabapentin 400 mg oral capsule: 1 Cap, Oral, QID, 120 Cap, 0 Refill(s) isosorbide mononitrate 30 mg oral tablet, extended release: 1 Tab, QAM, 0 Refill(s) levothyroxine 200 mcg (0.2 mg) oral tablet: 1 Tab, Oral, Daily, 60 Tab, 0 Refill(s) losartan 100 mg oral tablet: Tab, Oral, Daily, 0 Refill(s) pantoprazole 40 mg oral delayed release tablet: 1 Tab, Oral, Daily, 30 Tab, 0 Refill(s) rOPINIRole 3 mg oral tablet: 1 Tab, Oral, QPM, 270 Tab, 0 Refill(s) simvastatin: 80 mg, Oral, QPM, 0 Refill(s) tiZANidine 4 mg oral tablet: Tab, Oral, BID, 0 Refill(s) traZODone 100 mg oral tablet: 1 Tab, Oral, At Bedtime, 180 Tab, 0 Refill(s) Histories No education data available. Social & Psychosocial Habits No Data Available Past Medical History: Active COPD - Chronic obstructive pulmonary disease (440733518) HLD - Hyperlipidemia (614086822) HTN - Hypertension (5909602849) MEGHAN - Obstructive sleep apnea ([id number]) Type 2 diabetes mellitus (139998985) Family History: Father HDL - High density lipoprotein cholesterol Hypertension Diabetes mellitus Mother HDL - High density lipoprotein cholesterol Hypertension Diabetes mellitus Brother Diabetes mellitus Procedure history: Knee Replacement; bilateral. Lower back pain pump. Physical Examination VS/Measurements No qualifying data available General: Alert and oriented, No acute distress. Eye: Normal conjunctiva. HENT: Normocephalic, Oral mucosa is moist. Neck: Supple, Non-tender, No carotid bruit, No jugular venous distention. Respiratory: Lungs are clear to auscultation, Respirations are non-labored, Symmetrical chest wall expansion. Cardiovascular: Normal rate, Regular rhythm, No murmur, Good pulses equal in all extremities. Gastrointestinal: Soft, Normal bowel sounds, Obese. Musculoskeletal: Normal range of motion, Normal strength. Integumentary: Warm, Dry, [place]. Neurologic: Alert, Oriented. Psychiatric: Cooperative, Appropriate mood & affect. Review / Management Results review: No qualifying data available. Documentation reviewed: Records from referring physician, Reviewed prior records. Impression and Plan IMPRESSION: CP and Abnormal stress test 03/08/2022 HTN HLD IDDM Morbid Obesity: BMI 79 Neuropathy Chronic back pain; pain pump in situ COPD MEGHAN h.o PE/DVT (2015) PLAN; Left Heart Catheterization via right radial artery. Risks and Benefits discussed. Patient wishes to proceed. Cath shows no significant coronary stenosis. documented in this encounter Plan of Treatment Not on file documented as of this encounter Visit Diagnoses Not on filedocumented in this encounter
--- OUTSIDE RECORDS SUMMARY | 2025-03-09 08:00 | XMS_ITS | Encounter Summary ---
Author Organization [facility] Address [address] [place] [address] Care Team Providers Care Mobile Phone Salesperson Name Role Phone Unavailable Primary Care Provider Unavailabl e Encounter Details Date Type Department Care Team (Late st Contact Info) Description 03/29/2022 Transcribed Document [facility] [place] Family Medicine [address] [place] [address] ProviderStefani MD [address] [place] [address] Social History Tobacco Use Types Packs/Day Years Used Date Smoking Tobacco: Never Assessed Comments Unknown Sex and Gender Information Value Date Recorded Sex Assigned at Not on file Legal Sex Female 5:12 PM CDT Gender Identity Not on file Sexual Orientation Not on file documented as of this encounter Miscellaneous Notes * Cerner Conversion Note - Stefani Cole MD - 03/29/2022 12:50 PM CDT [facility] [place] [address] SEEMA DELACRUZ :1970 Visit Time:03/29/2022 Your Visit Summary Your Care Team Admitting Physician - JOSÉ MEMBRENO MD-CAR Attending Physician - JOSÉ MEMBRENO MD-CAR Primary Care Physician - JOSÉ FREEMAN (REF)LOREN Referring Physician - JOSÉ MEMBRENO MD-CAR Your Diagnosis Abnormal result of other cardiovascular function study, Abnormal result of other cardiovascular function study These Are Your Goals No qualifying data available. Discharge Vitals Temperature 36.8 ??C Heart Rate (Monitored) 78 Respiratory Rate 19 Blood Pressure 184/93 What to do next Instructions From Your Care Team Diet after Discharge: Resume usual diet as tolerated Activity after Discharge: Rest and relax today, No strenuous activity, No lifting more than 1 pound with affected hand for 48 hours. , Driving Restrictions: No driving for 24 hours. Showering/Bathing: You may remove the dressing in 24 hours and shower. , No tub bathing, soaking or swimming for 3-5 days until site is healed. Medications: No changes to your current home medications., Dressing Instructions: You can remove the dressing in 24 hours., Follow-Up Appointments Follow Up with ARGENTINA JONES When 04/13/2022 08:30 AM EDT Comments Appointment has been made Where: [address] [place] [address]- [phone] Business (1) Medications What How Much When Instructions Next Dose escitalopram (escitalopram 20 mg oral tablet) 1 Tablet(s) Every Day fenofibrate (fenofibrate 54 mg oral tablet) 1 Tablet(s) Every Day furosemide (furosemide 80 mg oral tablet) 1 Tablet(s) Two Times A Day gabapentin (gabapentin 400 mg oral capsule) 1 Capsule(s) Oral Four Times A Day insulin isophane (NPH)-insulin regular (HumuLIN 70/ 30) 28 Unit(s) SubCutaneous Twice a Day Before Meals isosorbide mononitrate (isosorbide mononitrate 30 mg oral tablet, extended release) 1 Tablet(s) Every Morning rOPINIRole (rOPINIRole 3 mg oral tablet) 1 Tablet(s) Oral Every Evening traZODone (traZODone 100 mg oral tablet) 1 Tablet(s) Oral At Bedtime benzonatate (benzonatate 100 mg oral capsule) 1 Capsule(s) Oral Every 8 Hours as needed for as needed for cough carvedilol (carvedilol 25 mg oral tablet) 1 Tablet(s) Oral Two Times A Day DULoxetine 60 Milligram(s) Oral Every Day levothyroxine (levothyroxine 200 mcg (0.2 mg) oral tablet) 1 Tablet(s) Oral Every Day losartan (losartan 100 mg oral tablet) Oral Every Day pantoprazole (pantoprazole 40 mg oral delayed release tablet) 1 Tablet(s) Oral Every Day semaglutide (Ozempic 2 mg/ 1.5 mL (0.25 mg or 0.5 mg dose) subcutaneous solution) simvastatin 80 Milligram(s) Oral Every Evening tiZANidine (tiZANidine 4 mg oral tablet) Oral Two Times A Day Take your medications faithfully. Do NOT skip medication. Do NOT stop taking medications without the direction of a physician. Carry a list of your medications with you at all times, and take this medication list with you to your first follow up visit. Report any side effects. Avoid herbal remedies unless discussed with your physician. As part of your treatment plan, your physician may have prescribed a limited course of a controlled substance. This medication may be given to help people with moderate or severe pain or for other medical conditions, but there are risks involved with treatment. Common side effects may include nausea, constipation, drowsiness, sweating, itching, dry mouth, and rash. More serious side effects may include cognitive and motor impairment, like problems with thinking, concentrating, alertness, and movement (e.g. slowed reflexes), and driving and operating heavy machinery can be dangerous. It is important for you to talk to your physician if you have these side effects or questions. These controlled substances can produce physical dependence and be habit-forming if taken for an extended period of time, which means that the body has gotten used to them and may experience withdrawal symptoms if they are abruptly stopped. Withdrawal symptoms can include runny nose, sweating, goose bumps, diarrhea, abdominal cramping, rapid heartbeat, difficulty sleeping, and nervousness. Please dispose of unused and medications per your retail pharmacy guidance. Allergies Avelox Inapsine Rocephin ibuprofen Immunizations This Visit No Immunizations Found Education Materials Radial Site Care This sheet gives you information about how to care for yourself after your procedure. Your health care provider may also give you more specific instructions. If you have problems or questions, contact your health care provider. What can I expect after the procedure? After the procedure, it is common to have: ??? Bruising and tenderness at the catheter insertion area. Follow these instructions at home: Medicines ??? Take kcpu-roj-hortqhg and prescription medicines only as told by your health care provider. Insertion site care ??? Follow instructions from your health care provider about how to take care of your insertion site. Make sure you: ? Wash your hands with soap and water before you change your bandage (dressing). If soap and water are not available, use hand machine gun mechanic. ? Change your dressing as told by your health care provider. ? Leave stitches (sutures), skin glue, or adhesive strips in place. These skin closures may need to stay in place for 2 weeks or longer. If adhesive strip edges start to loosen and curl up, you may trim the loose edges. Do not remove adhesive strips completely unless your health care provider tells you to do that. ??? Check your insertion site every day for signs of infection. Check for: ? Redness, swelling, or pain. ? Fluid or blood. ? Pus or a bad smell. ? Warmth. ??? Do not take baths, swim, or use a hot tub until your health care provider approves. ??? You may shower 24???48 hours after the procedure, or as directed by your health care provider. ? Remove the dressing and gently wash the site with plain soap and water. ? Pat the area dry with a clean towel. ? Do not rub the site. That could cause bleeding. ??? Do not apply powder or lotion to the site. Activity ??? For 24 hours after the procedure, or as directed by your health care provider: ? Do not flex or bend the affected arm. ? Do not push or pull heavy objects with the affected arm. ? Do not drive yourself home from the hospital or clinic. You may drive 24 hours after the procedure unless your health care provider tells you not to. ? Do not operate machinery or power tools. ??? Do not lift anything that is heavier than 10 lb (4.5 kg), or the limit that you are told, until your health care provider says that it is safe. ??? Ask your health care provider when it is okay to: ? Return to work or school. ? Resume usual physical activities or sports. ? Resume sexual activity. General instructions ??? If the catheter site starts to bleed, raise your arm and put firm pressure on the site. If the bleeding does not stop, get help right away. This is a medical emergency. ??? If you went home on the same day as your procedure, a responsible adult should be with you for the first 24 hours after you arrive home. ??? Keep all follow-up visits as told by your health care provider. This is important. Contact a health care provider if: ??? You have a fever. ??? You have redness, swelling, or yellow drainage around your insertion site. Get help right away if: ??? You have unusual pain at the radial site. ??? The catheter insertion area swells very fast. ??? The insertion area is bleeding, and the bleeding does not stop when you hold steady pressure on the area. ??? Your arm or hand becomes pale, cool, tingly, or numb. These symptoms may represent a serious problem that is an emergency. Do not wait to see if the symptoms will go away. Get medical help right away. Call your local emergency services (911 in the [place] Do not drive yourself to the hospital. Summary ??? After the procedure, it is common to have bruising and tenderness at the site. ??? Follow instructions from your health care provider about how to take care of your radial site wound. Check the wound every day for signs of infection. ??? Do not lift anything that is heavier than 10 lb (4.5 kg), or the limit that you are told, until your health care provider says that it is safe. This information is not intended to replace advice given to you by your health care provider. Make sure you discuss any questions you have with your health care provider. Document Revised: 10/23/2018 Document Reviewed: 10/23/2018 [employer] Patient Education ?? [employer] Moderate Conscious Sedation, Adult, Care After This sheet gives you information about how to care for yourself after your procedure. Your health care provider may also give you more specific instructions. If you have problems or questions, contact your health care provider. What can I expect after the procedure? After the procedure, it is common to have: ??? Sleepiness for several hours. ??? Impaired judgment for several hours. ??? Difficulty with balance. ??? Vomiting if you eat too soon. Follow these instructions at home: For the time period you were told by your health care provider: ??? Rest. ??? Do not participate in activities where you could fall or become injured. ??? Do not drive or use machinery. ??? Do not drink alcohol. ??? Do not take sleeping pills or medicines that cause drowsiness. ??? Do not make important decisions or sign legal documents. ??? Do not take care of children on your own. Eating and drinking ??? Follow the diet recommended by your health care provider. ??? Drink enough fluid to keep your urine pale yellow. ??? If you vomit: ? Drink water, juice, or soup when you can drink without vomiting. ? Make sure you have little or no nausea before eating solid foods. General instructions ??? Take wsoo-tca-szvvnxk and prescription medicines only as told by your health care provider. ??? Have a responsible adult stay with you for the time you are told. It is important to have someone help care for you until you are awake and alert. ??? Do not smoke. ??? Keep all follow-up visits as told by your health care provider. This is important. Contact a health care provider if: ??? You are still sleepy or having trouble with balance after 24 hours. ??? You feel light-headed. ??? You keep feeling nauseous or you keep vomiting. ??? You develop a rash. ??? You have a fever. ??? You have redness or swelling around the IV site. Get help right away if: ??? You have trouble breathing. ??? You have new-onset confusion at home. Summary ??? After the procedure, it is common to feel sleepy, have impaired judgment, or feel nauseous if you eat too soon. ??? Rest after you get home. Know the things you should not do after the procedure. ??? Follow the diet recommended by your health care provider and drink enough fluid to keep your urine pale yellow. ??? Get help right away if you have trouble breathing or new-onset confusion at home. This information is not intended to replace advice given to you by your health care provider. Make sure you discuss any questions you have with your health care provider. Document Revised: 01/14/2021 Document Reviewed: 08/12/2020 [employer] Patient Education ?? 2020 [employer] Emergency Awareness and Preventative Care STROKE is an EMERGENCY Every Minute Counts Act FAST and Check for these signs: FACE Does the face look uneven? ARM Does one arm drift down? SPEECH Does their speech sound strange? TIME Call at any sign of stroke Stroke Risk Factors Atrial Fibrillation (irregular heartbeat) Diabetes Family history of stroke Heart Disease Heavy alcohol use High Blood Pressure High Cholesterol Physical inactivity and obesity Smoking Cigarette Smoking The facts are clear, cigarette smoking will shorten your life. Smoking can cause many illnesses along the way. As a healthcare provider, we recommend that you stop smoking. Assistance with quitting is available by contacting 9-021-ERPVNOW. This is a free resource providing counseling, support, and referral. Or you may contact your personal physician. [place] Suicide Prevention Lifeline: The National Suicide Prevention Lifeline is a national network of local crisis centers that provides free and confidential emotional support to people in suicidal crisis or emotional distress 24 hours a day, 7 days a week. Don't Wait! Stop a Heart Attack Before it Starts What is a heart attack? A heart attack is damage or to a part of the heart from severely decreased or lack of blood flow to the heart. Over time, arteries can become narrow from the buildup of fat and cholesterol, which is called plaque. The plaque can rupture causing a blood clot to form. When the blood clot forms, the artery can become severely narrowed or completely blocked, causing a heart attack. Heart attack is the leading cause of in the [place]. 85% of muscle damage occurs within the first 2 hours. Delay in the recognition of heart attack symptoms increases the chances of . Know the early symptoms of a heart attack: Nausea Feeling of fullness in chest Jaw Pain Pain that travels down one or both arms Fatigue/being tired Anxiety Back Pain Chest pressure, squeezing, or discomfort Shortness of breath Sweating, or a cold sweat Feeling of impending doom There are unusual signs of a heart attack, too! Women, the elderly, and diabetics may present with atypical symptoms: Fainting/dizziness Weakness Confusion Risk Factors for a Heart Attack Some heart disease risk factors, such as age and family history, cannot be changed. Others, like smoking and lack of exercise, can be changed. Smoking High Cholesterol High Blood Pressure Family History Obesity Age Gender (Males are at higher risk) Lack of Exercise Diabetes Diet Stress Excessive Alcohol Intake If you or someone you know is experiencing the signs and symptoms of a heart attack, DON???T DELAY. Call immediately and seek help. If someone collapses, perform CPR! Do not attempt to drive if you are having symptoms of heart attack. Hands-Only CPR Why Hands-Only CPR? Hands-Only CPR has been shown to be as effective as conventional CPR for cardiac arrests that occur outside of a hospital. Survival depends on immediately receiving CPR from someone nearby. How do you perform Hands-Only CPR? There are two easy steps: Call 9-1-1 if you see a teen or adult collapse Push hard and fast in the center of the chest at a beat of 100 beats per minute. Save a life! 4 WAYS TO GET AHEAD OF SEPSIS SEPSIS is a MEDICAL EMERGENCY. Time matters! Infections put you and your family at risk for a life-threatening condition called sepsis. Sepsis is the body's extreme response to an infection. It is life-threatening, and without timely treatment, sepsis can rapidly lead to tissue damage, organ failure, and . Sepsis happens when an infection you already have-in your skin, lungs, urinary tract or somewhere else-triggers a chain reaction throughout your body. 1 PREVENT INFECTIONS Take good care of chronic conditions. Talk to your doctor about getting the recommended vaccines. 2 PRACTICE GOOD HYGIENE Wash your hands frequently. Keep cuts or open sores clean and covered until they are healed. 3 KNOW THE SYMPTOMS Confusion or disorientation Shortness of breath High heart rate Fever, shivering, or feeling very cold Extreme pain or discomfort Clammy or sweaty skin 4 ACT FAST Get medical care IMMEDIATELY if you suspect sepsis or if you have an infection that is not getting better or is getting worse. To learn more about sepsis and how to prevent infections, visit www.cdc.gov/sepsis. Test Results Laboratory or Other Results This Visit (last charted value for your 03/29/2022 visit) Hematology 03/29/2022 7:40 AM Platelet Count: 218 K/uL -- Normal range between ( 163 and 369 ) Patient Name:SEEMA DELACRUZ I have received and understand this information and was given the opportunity to ask questions. Patient/Sampler Radioactive Waste Name: Patient/Sampler Radioactive Waste Signature: Relationship to Patient: Clinician/Hospital Sampler Radioactive Waste Signature: Date: documented in this encounter Plan of Treatment Not on file documented as of this encounter Visit Diagnoses Not on filedocumented in this encounter
--- OUTSIDE RECORDS SUMMARY | 2025-03-09 08:00 | XMS_ITS | Encounter Summary ---
Author Organization [facility] [employer] [facility] Address [address] [place] [address] Care Team Providers Care Transfusion Aide Name Role Phone Unavailable Primary Care Provider Unavailabl e Encounter Details Date Type Department Care Team (Late st Contact Info) Description 03/29/2022 Transcribed Document [facility] [place] [facility] [place] [address] ProviderStefani MD [address] [place] [address] Social History Tobacco Use Types Packs/Day Years Used Date Smoking Tobacco: Never Assessed Comments Unknown Sex and Gender Information Value Date Recorded Sex Assigned at Not on file Legal Sex Female 5:12 PM CDT Gender Identity Not on file Sexual Orientation Not on file documented as of this encounter Miscellaneous Notes * Cerner Conversion Note - Stefani Cole MD - 03/29/2022 10:32 AM CDT Patient Education Materials Follows: Radial Site Care This sheet gives you [...] these instructions at home: Medicines ??? Take jviq-kxa-tprzxia and prescription medicines only as told by your health care provider. Insertion site care ??? Follow instructions from your health care provider about how to take care of your insertion site. Make sure you: ? Wash your hands with soap and water before you change your bandage (dressing). If soap and water are not available, use hand claim approver. ? Change your dressing as told by [...] care provider approves. ??? You may shower 24?48 hours after the procedure, or as directed [...] provider. Document Revised: 10/23/2018 Document Reviewed: 10/23/2018 [employer] Patient Education ? 2020 [employer] Pharmacology Moderate Conscious Sedation, Adult, Care After This [...] eating solid foods. General instructions ??? Take clfp-cmn-bktoxim and prescription medicines only as told by [...] provider. Document Revised: 01/14/2021 Document Reviewed: 08/12/2020 [employer] Patient Education ? 2020 [employer] documented in this encounter Plan of Treatment Not on file documented as of this encounter Visit Diagnoses Not on filedocumented in this encounter
--- OUTSIDE RECORDS SUMMARY | 2025-03-09 08:00 | XMS_ITS | Encounter Summary ---
Author Organization Healthcare Address [address] [place] [address] Care Team Providers Care [employer] Social Studies Tutor Name Role Phone Faustino Amador MD Primary Care Provider [phone] Reason for Referral * Consultation (Routine) - Closed Specialty Diagnoses / Procedures Referred By Betito carty Referred To Contact Plastic Surgery Diagnoses Excess skin Khurram Chanel APRN [address] [place] [address] Phone: tel: fax: Referral ID Status Reason Start Date Expiration Date V isits Requested Visits Authorized [id number] Closed Specialty Services Required 11/29/2021 05/31/2023 1 1 Encounter Details Date Type Department Care Team (Late st Contact Info) Description 11/29/2021 Community [facility] [address] [place] [address] Khurram Chanel APRN [address] [place] [address] Excess skin (Primary Dx) Social History Tobacco Use Types Packs/Day Years Used Date Smoking Tobacco: Former Smokeless Tobacco: Never Alcohol Use Standard Drinks/Week Comments No 0 (1 standard drink = 0.6 oz pure alcohol) Alcoholic Drinks/day: Never Drank Alcohol Comments Unknown Sex and Gender Information Value Date Recorded Sex Assigned at Female 05/24/2022 10:08 AM EDT Legal Sex Female 8:07 PM EDT Gender Identity Female 05/24/2022 10:08 AM EDT Sexual Orientation Not on file documented as of this encounter Plan of Treatment Scheduled Referrals Name Type Priority Associated Diagnoses Order Schedule Ambulatory Referral to Plastic Surgery Outpatient Referral Routine Excess skin Expected: 11/29/2021 (Approximate), Expires: 03/01/2022 documented as of this encounter Visit Diagnoses Diagnosis Excess skin- Primary documented in this encounter Care Teams [employer] Social Studies Tutor Relationship Specialty Start Date End Date Faustino Amador MD [address] [place] [address] PCP - General 03/14/21 documented as of this encounter
--- OUTSIDE RECORDS SUMMARY | 2025-03-09 08:01 | XMS_ITS | Referral Summary ---
Author Organization [facility] Address [address] [place] [address] Care Team Providers Care It Support Manager Name Role Phone Unavailable Primary Care Provider [...]
--- OUTSIDE RECORDS SUMMARY | 2025-03-09 08:01 | XMS_ITS | Clinical Summary ---
Author Organization [facility] Address [address] [place] [address] Phone Care Team Providers Care On Call Pharmacy Technician Name Role Phone Sanaz RN, Linn Unavailable Unavailable Conditions or Problems Problem Name Problem Code Onset Date Status Entry Date Provider Comment Standard Description Annotate Knee, left, subsequent encounter, infection/infl ammatory reaction due to internal joint prosthesis T84.54xD (ICD-10-CM ) Active Freda Medina Infection and inflammatory reaction due to internal left knee prosthesis, subsequent encounter Abscess of left knee L02.416 (ICD-10-CM ) Active Freda Medina Cutaneous abscess of left lower limb Cellulitis of left knee L03.116 (ICD-10-CM ) Active Freda Medina Cellulitis of left lower limb Acute respiratory failure with hypercapnia 43059543 (SNOMED CT) Active Freda Medina Acute respiratory failure Leukemoid reaction 48227232 (SNOMED CT) Active Freda Medina Leukemoid reaction [facility] (current) use of systemic steroids Z79.52 (ICD-10-CM ) Active Freda Medina [facility] (current) use of systemic steroids Benign Essential Hypertension 77119633 (SNOMED CT) Active Freda Medina Benign hypertension DM II, poorly-control led E11.65 (ICD-10-CM ) Active Freda Medina Type 2 diabetes mellitus with hyperglycemia Morbid obesity due to excess calories E66.01 (ICD-10-CM ) Active Freda Medina Morbid (severe) obesity due to excess calories Acquired absence of left knee joint Z89.522 (ICD-10-CM ) Active Freda Medina Acquired absence of left knee Medications No information available. Medications Administered No information available. Allergies, Adverse Reactions, Alerts Allergy Name Reaction Description Start Date Severity Statu s Provider AVELOX Moderate Active Lazaro S CEFTRIAXONE SODIUM Moderate Active Lazaro S IBUPROFEN Moderate Active Lazaro S Results No information available. Plan of Care No information available. Procedures No information available. Vital Signs No information available. Immunizations No information available. Advance Directives No information available.
--- OUTSIDE RECORDS SUMMARY | 2025-03-09 08:01 | XMS_ITS | Clinical Summary ---
Author Organization [facility] Address [address] [place] [address] Phone Care Team Providers Care Route Inspector Name Role Phone Unavailable Primary Care Provider Unavailabl e Social History Tobacco Use Types Packs/Day Years Used Date Smoking Tobacco: Never Assessed Comments Unknown Sex and Gender Information Value Date Recorded Sex Assigned at Not on file Legal Sex Female 1:42 PM EST Gender Identity Not on file Sexual Orientation Not on file Plan of Treatment Health Maintenance Due Date Last Done Comments Annual Wellness Exam 1972 DTaP/TDaP/Td (1 - Tdap) 1988 Hepatitis B Vaccine (1 of 3 - 19+ 3-dose series) 1988 Cervical Cancer Screening 1990 Pap Smear 1990 HPV/Pap Cotest 1999 Cologuard 2014 Colon Cancer Screening 2014 Colonoscopy 2014 FIT 2014 Sigmoidoscopy 2014 Virtual Colonography 2014 Zoster (1 of 2) 2019 COVID-19 Vaccine ( season) 2024 04/07/2021, 03/17/2021 Influenza Vaccine (Season Ended) 2025 07/26/2023, 07/06/2022, 08/05/2021, Additional history exists Breast Cancer Screening 11/09/2025 11/09/2023 Pneumococcal Vaccine 50+ Completed 023, 06/07/2016, 07/24/2015, Additional history exists Meningococcal B Vaccine Aged Out No l onger eligible based on patient's age to complete this topic Procedures Procedure Name Priority Date/Time Associated Diagnosis Comments MM MAMMO DIGITAL EULALIA SCREEN BILAT Routine 11/09/2023 1:28 PM EST Encounter for screening mammogram for malignant neoplasm of breast from Last 3 Months or Most Recently Relevant to Health Maintenance Results * MM MAMMO DIGITAL EULALIA SCREEN BILAT (11/09/2023 1:28 PM EST) Anatomical Region Laterality Modality Breast Bilateral Mammography 11/19/2023 7:29 AM EST Impressions 11/19/2023 7:29 AM EST Benign finding ([id number]) ~ RECOMMENDATION: Routine screening mammogram in 1 year. ~ DISCLAIMER * Any patient with a palpable abnormality, unexplained by breast imaging, should be managed on clinical basis by the attending physician. * Breast imaging has a false negative rate of 15%. * The patient was notified by mail of the results of this examination. *The patient's information was entered into a reminder system with a target due date for the next mammogram, in accordance with the [employer] and the Society of Breast Imaging recommendations. Narrative 11/19/2023 7:29 AM EST Procedure:MM MAMMO DIGITAL EULALIA SCREEN BILAT ~ Reason for exam: screening, asymptomatic. Z12.31-Encounter for screening mammogram for malignant neoplasm of [id number] ~ MM MAMMO DIGITAL EULALIA SCREEN BILAT Bilateral CC and MLO view(s) were taken. There are scattered fibroglandular densities. Prior study comparison: Compared with prior studies the most recent being outside mammograms dated 12/23/2019, 12/09/2019, and 11/26/2019 No suspicious mass, architectural distortion, or microcalcifications. Stable benign asymmetric island of fibroglandular tissue involving the upper outer quadrant left breast, middle depth. Stable benign circumscribed oval mass within the mid to posterior 6:00 position left breast with associated tissue marker. No mammographic evidence of malignancy. ~ Procedure Note Ulices Gaviria MD - 11/19/2023 Procedure:MM MAMMO DIGITAL EULALIA SCREEN BILAT ~ Reason for exam: screening, asymptomatic. Z12.31-Encounter for screening mammogram for malignant neoplasm of [id number] ~ MM MAMMO DIGITAL EULALIA SCREEN BILAT Bilateral CC and MLO view(s) were taken. There are scattered fibroglandular densities. Prior study comparison: Compared with prior studies the most recentbeing outside mammograms dated 12/23/2019, 12/09/2019, and 11/26/2019 No suspicious mass, architectural distortion, or microcalcifications. Stable benign asymmetric island of fibroglandular tissue involving the upper outer quadrant left breast, middle depth. Stable benigncircumscribed oval mass within the mid to posterior 6:00 position left breast with associated tissue marker. No mammographic evidence of malignancy. ~ IMPRESSION: Benign finding ([id number]) ~ RECOMMENDATION: Routine screening mammogram in 1 year. ~ DISCLAIMER * Any patient with a palpable abnormality, unexplained by breast imaging, should be managed on clinical basis by the attending physician. * Breast imaging has a false negative rate of 15%. * The patient was notified by mail of the results of this examination. *The patient's information was entered into a reminder system with atarget due date for the next mammogram, in accordance with the [employer] and the Society of Breast Imaging recommendations. us Not In [facility] Provider IMG MAMMOGRAPHY ORDERABLES Final Result from Last 3 Months or Most Recently Relevant to Health Maintenance [place] [address] [place] [address] [employer] MED[employer] HMO
--- OUTSIDE RECORDS SUMMARY | 2025-03-09 08:01 | XMS_ITS | Data Portability ---
Author Organization [facility] Address [address] [place] [address] Assessment No assessment recorded. Plan of Treatment Reminders Order Date Submit Date Provider Last Modified By Organization Details Last Modified Time Details Appointments None recorded. Lab CMP, serum or plasma 2024 025 [facility] [address] [place], [address], 5 08:11:46 CBC w/ auto diff 2024 025 [facility] [address] [place], [address], 5 08:11:45 TSH + free T4, serum 2024 025 [facility] [address] [place], [address], 5 08:11:45 HIV 1 + 2, meaningful use set 2024 025 [facility] [address] [place], [address], 5 08:11:47 lipid panel, serum 2024 025 [facility] [address] [place], [address], 5 08:11:46 cobalamin and folate panel, serum 2024 025 [facility]), [address] [place], [address], 5 08:11:47 vitamin D, 25-hydroxy, total, serum 2024 025 [facility] [address] [place], [address], 5 08:11:47 HbA1c (hemoglobin A1c), blood [address], [address] [place] [address], [address], 5 17:08:29 HbA1c (hemoglobin A1c), blood [address], [address] [place] [address], [address], 4 13:06:35 TSH + free T4, serum 2023 024 [facility] [place], [address], 4 04:07:48 HbA1c (hemoglobin A1c), blood [address], [address] [place] [address], [address], 4 14:58:46 Referral gastroenter ologist referral - first avail. 2023 024 [email or web address], [address], [place], [address], 4 16:52:15 physical therapist referral - first avail. [facility] for lymphedema and right foot ulcers 2023 024 [facility], [address], [place], [address], 4 15:39:51 Procedures None recorded. Surgeries None recorded. Imaging XR, chest, 2 view 2024 [facility], [address], [place], [address], 5 17:05:37 US, abdomen, complete - first available appt 2023 024 [facility], [address] [place], [address], 4 11:15:09 Medication Orders trazodone 150 mg tablet 2024 [facility], [address] [place] [address], [address], 5 16:36:09 Trelegy Ellipta 100 mcg-62.5 mcg-25 mcg powder for inhalation 2024 025 [facility], [address] [place] [address], [address], 5 14:11:53 albuterol sulfate 0.63 mg/3 mL solution for nebulizatio n 2024 025 [facility], [address] [place] [address], [address], 5 16:36:07 Ventolin HFA 90 mcg/actuati on aerosol inhaler 2024 025 [facility], [address] [place] [address], [address], 5 12:28:31 duloxetine 60 mg capsule,del ayed release 2024 025 [facility], [address] [place] [address], [address], 5 16:36:12 escitalopra m 20 mg tablet 2024 025 [facility], [address] [place] [address], [address], 16:36:10 ropinirole 3 mg tablet 2024 025 [facility], [address] [place] [address], [address], 16:36:16 Imodium A-D 2 mg tablet 2024 025 [facility], [address] [place] [address], [address], 15:55:45 ondansetron 4 mg disintegrat ing tablet 2024 025 [facility], [address] [place] [address], [address], 16:36:12 carvedilol 25 mg tablet 2024 025 [facility], [address] [place] [address], [address], 16:36:05 Lasix 40 mg tablet 2024 025 [facility], [address] [place] [address], [address], 16:36:06 isosorbide dinitrate 30 mg tablet 2024 025 [facility], [address] [place] [address], [address], 5 16:36:07 lisinopril 2.5 mg tablet 2024 025 [facility], [address] [place] [address], [address], 5 16:36:04 Vistaril 25 mg capsule 2024 025 [facility], [address] [place] [address], [address], 11:13:15 gabapentin 600 mg tablet 2024 025 [facility], [address] [place] [address], 98[address], 11:13:16 fenofibrate 54 mg tablet 2024 025 [facility], [address] [place] [address], [address], 5 16:36:10 simvastatin 40 mg tablet 2024 [facility], [address] [place] [address], [address], 5 16:36:06 Vitamin C 500 mg chewable tablet 2024 025 [facility], [address] [place] [address], [address], 5 15:50:44 ergocalcife rol (vitamin D2) 1,250 mcg (50,000 unit) capsule 2024 025 [facility], [address] [place] [address], [address], 5 16:36:11 pantoprazol e 40 mg tablet,jerel yed release 2024 025 [facility], [address] [place] [address], [address], 5 16:36:15 Lantus Solostar U-100 Insulin 100 unit/mL (3 mL) subcutaneou s pen 2024 025 [facility], [address] [place] [address], [address], 5 16:36:15 Ozempic 2 mg/dose (8 mg/3 mL) subcutaneou s pen injector 2024 025 [facility], [address] [place] [address], [address], 5 16:36:09 Humulin 70/30 U-100 Insulin KwikPen 100 unit/mL subcutaneou s 2024 025 [facility], [address] [place] [address], [address], 5 14:11:51 diclofenac 1 % topical gel 2023 024 [facility], [address] [place] [address], [address], 4 12:54:28 trazodone 150 mg tablet 2023 024 [facility], [address] [place] [address], [address], 4 13:29:42 Ventolin HFA 90 mcg/actuati on aerosol inhaler 2023 024 [facility], [address] [place] [address], [address], 5 17:15:16 albuterol sulfate 0.63 mg/3 mL solution for nebulizatio n 2023 024 [facility], [address] [place] [address], 40[address], 4 13:29:43 duloxetine 60 mg capsule,del ayed release 2023 024 [facility], [address] [place] [address], [address], 4 13:29:37 escitalopra m 20 mg tablet 2023 [facility], [address] [place] [address], 439[address], 4 13:29:38 ropinirole 3 mg tablet 2023 [facility], [address] [place] [address], 058[address], 13:29:43 Imodium A-D 2 mg tablet 2023 [facility], [address] [place] [address], 601[address], 13:39:50 ondansetron 4 mg disintegrat ing tablet 2023 [facility], [address] [place] [address], 6[address], 13:29:40 tramadol 50 mg tablet 2023 [facility], [address] [place] [address], 08141, 13:29:44 carvedilol 25 mg tablet 2023 [facility], [address] [place] [address], 34[address], 4 13:29:45 Lasix 40 mg tablet 2023 [facility], [address] [place] [address], 12[address], 13:29:43 isosorbide dinitrate 30 mg tablet 2023 [facility], [address] [place] [address], 49[address], 4 13:29:39 lisinopril 2.5 mg tablet 2023 [facility], [address] [place] [address], 0[address], 4 13:29:34 Vistaril 25 mg capsule 2023 [facility], [address] [place] [address], 704[address], 5 17:04:28 gabapentin 600 mg tablet 2023 [facility], [address] [place] [address], 98[address], 5 17:04:26 fenofibrate 54 mg tablet 2023 [facility], [address] [place] [address], 265[address], 4 13:29:40 simvastatin 40 mg tablet 2023 [facility], [address] [place] [address], 46[address], 4 13:29:46 tizanidine 4 mg tablet 2023 [facility], [address] [place] [address], 537[address], 4 13:29:41 Vitamin C 500 mg chewable tablet 2023 [facility], [address] [place] [address], 04268, 4 13:54:54 ergocalcife rol (vitamin D2) 1,250 mcg (50,000 unit) capsule 2023 [facility], [address] [place] [address], 9[address], 4 13:29:45 pantoprazol e 40 mg tablet,jerel yed release 2023 [facility], [address] [place] [address], 45[address], 4 13:29:37 Humulin 70/30 U-100 Insulin KwikPen 100 unit/mL subcutaneou s 2023 [facility], [address] [place] [address], 565[address], 4 17:40:41 Lantus Solostar U-100 Insulin 100 unit/mL (3 mL) subcutaneou s pen 2023 [facility], [address] [place] [address], 64099, 4 13:29:35 Ozempic 2 mg/dose (8 mg/3 mL) subcutaneou s pen injector 2023 024 [facility], [address] [place] [address], 812[address], 4 17:40:41 tramadol 50 mg tablet 2023 024 [facility], [address] [place] [address], 726[address], 4 16:39:02 gabapentin 400 mg capsule 2023 [facility], [address] [place] [address], 14803, 4 13:29:34 diclofenac 1 % topical gel 2023 024 [facility], [address] [place] [address], 058[address], 4 15:46:36 trazodone 150 mg tablet 2023 [facility], [address] [place] [address], 11[address], 4 16:21:53 duloxetine 60 mg capsule,del ayed release 2023 [facility], [address] [place] [address], 15095, 4 16:21:50 escitalopra m 20 mg tablet 2023 [facility], [address] [place] [address], 86667, 4 16:21:47 ropinirole 3 mg tablet 2023 024 [facility], [address] [place] [address], 28250, 4 16:21:57 Imodium A-D 2 mg tablet 2023 [facility], [address] [place] [address], 16871, 4 15:56:39 ondansetron 4 mg disintegrat ing tablet 2023 024 [facility], [address] [place] [address], 43881, 4 16:21:52 tramadol 50 mg tablet 2023 [facility], [address] [place] [address], 51731, 4 16:21:49 carvedilol 25 mg tablet 2023 [facility], [address] [place] [address], 20990, 4 16:21:42 Lasix 40 mg tablet 2023 024 [facility], [address] [place] [address], 18461, 4 16:21:54 isosorbide dinitrate 30 mg tablet 2023 024 [facility], [address] [place] [address], 35307, 4 16:21:58 lisinopril 2.5 mg tablet 2023 024 [facility], [address] [place] [address], 55235, 4 16:00:57 Vistaril 25 mg capsule 2023 024 [facility], [address] [place] [address], 13882, 4 16:34:35 gabapentin 400 mg capsule [address] [facility], [address] [place] [address], 05155, 4 13:03:50 azithromyci n 250 mg tablet 2023 024 [facility], [address] [place] [address], 69270, 4 15:12:44 fenofibrate 54 mg tablet 2023 024 [facility], [address] [place] [address], 95668, 4 16:21:49 simvastatin 40 mg tablet 2023 024 [facility], [address] [place] [address], 38758, 4 11:17:45 tizanidine 4 mg tablet 2023 [facility], [address] [place] [address], 95031, 4 16:21:53 Vitamin C 500 mg chewable tablet 2023 [facility], [address] [place] [address], 57859, 4 15:41:41 ergocalcife rol (vitamin D2) 1,250 mcg (50,000 unit) capsule 2023 [facility], [address] [place] [address], 54435, 4 16:21:50 pantoprazol e 40 mg tablet,jerel yed release 2023 [facility], [address] [place] [address], 57950, 4 15:41:40 Lantus Solostar U-100 Insulin 100 unit/mL (3 mL) subcutaneou s pen 2023 024 [facility], [address] [place] [address], 55711, 4 16:21:46 Ozempic 2 mg/dose (8 mg/3 mL) subcutaneou s pen injector 2023 024 [facility], [address] [place] [address], 57096, 4 16:21:54 Humulin 70/30 U-100 Insulin KwikPen 100 unit/mL subcutaneou s 2023 [facility], [address] [place] [address], 68716, 16:21:56 Vistaril 25 mg capsule [address] [facility], [address] [place] [address], 90619, 4 17:28:48 gabapentin 400 mg capsule [address] [facility], [address] [place] [address], 23905, 13:03:50 Patient TargetsNo targets recorded. Patient InstructionsNo instructions recorded. Reason for Referral Lab Rep Referral for Abdominal pain first avail. Referring Physician: Linn Montana [facility], Encounter Date: 06/12/2024 Physical Therapist Referral for Lymphedema of bilateral lower limbs first avail. [facility] for lymphedema and right foot ulcers Referring Physician: [facility], Encounter Date: 06/12/2024 Results Created Date Observation Date Name Description Value Unit Range Abnormal Flag Note LastModifiedBy Organization Detail LastModifiedTime 03/17/20 24 03/18/2024 TSH W/REF KARLEY TO FT4 TSH w/reflex to FT4 0.01 mIU/L low Refer ence Range > or = 20 Years 0.40- 4.50 Pregn rena Range s First trime ster 0.26- 2.66 Secon d trime ster 0.55- 2.73 Third trime ster 0.43- 2.91 Not Available [facility] [address] [place], [address], 03/18/2024 10:27:15 03/17/20 24 03/18/2024 T4, FREE T4, free 1.2 NG/dL 0.8-1. 8 normal Not Available [facility] [address] [place], [address], 03/18/2024 10:27:16 03/31/20 24 04/01/2024 TSH W/REF KARLEY TO FT4 TSH w/reflex to FT4 0.01 mIU/L low Refer ence Range > or = 20 Years 0.40- 4.50 Pregn rena Range s First trime ster 0.26- 2.66 Secon d trime ster 0.55- 2.73 Third trime ster 0.43- 2.91 Not Available [facility] [address] [place], [address], 04/01/2024 10:57:10 03/31/20 24 04/01/2024 T4, FREE T4, free 1.1 NG/dL 0.8-1. 8 normal Not Available [facility] [address] [place], [address], 04/01/2024 10:57:11 05/08/20 24 05/09/2024 TSH+F REE T4 TSH <0.005 uIU/m L 0.450- 4.500 below low normal Not Available [facility]) [address] [facility], [place], [address], 05/09/2024 04:07:48 05/08/20 24 05/09/2024 TSH+F REE T4 T4,free(dire ct) 1.47 NG/dL 0.82-1 .77 normal Not Available [facility] ([facility]) [address] [facility], [place], [address], 05/09/2024 04:07:48 05/08/20 24 05/08/2024 HbA1c (hemo globi n A1c), blood HbA1c 8.7 Not Available [address], [address], 05/08/2024 14:44:32 08/26/20 24 08/26/2024 HbA1c (hemo globi n A1c), blood HbA1c 6.6 Not Available [address], [address], 08/26/2024 11:54:21 12/27/1912/27/2024 TSH+F REE T4 TSH 0.128 uIU/m L 0.450- 4.500 below low normal Not Available [facility] ([facility]) [address] [place], [address], 12/27/2024 08:11:45 12/27/1912/27/2024 TSH+F REE T4 T4,free(dire ct) 1.10 NG/dL 0.82-1 .77 normal Not Available [facility] ([facility]) [address] [place], [address], 12/27/2024 08:11:45 12/27/1912/27/2024 CBC WITH DIFFE RENTI AL/PL ATELE T WBC 9.9 x10e3 /uL 3.4-10 .8 normal Not Available [facility] ([facility]) [address] [place], [address], 12/27/2024 08:11:45 12/27/19 25 12/27/2024 CBC WITH DIFFE RENTI AL/PL ATELE T RBC 6.30 x10e6 /uL 3.77-5 .28 above high normal Not Available [facility] ([facility]) [address] [place], [address], 12/27/2024 08:11:45 12/27/19 25 12/27/2024 CBC WITH DIFFE RENTI AL/PL ATELE T hemoglobin 17.6 g/dL 11.1-1 5.9 above high normal Not Available [facility] ([facility]) [address] [place], [address], 12/27/2024 08:11:45 12/27/19 25 12/27/2024 CBC WITH DIFFE RENTI AL/PL ATELE T hematocrit 53.9 % 34.0-4 6.6 above high normal Not Available [facility] ([facility]) [address] [place], [address], 12/27/2024 08:11:45 12/27/19 25 12/27/2024 CBC WITH DIFFE RENTI AL/PL ATELE T MCV 86 fL 79-97 normal Not Available [facility] ([facility]) [address] [place], [address], 12/27/2024 08:11:45 12/27/19 25 12/27/2024 CBC WITH DIFFE RENTI AL/PL ATELE T MCH 27.9 pg 26.6-3 3.0 normal Not Available [facility] ([facility]) [address] [place], [address], 12/27/2024 08:11:45 12/27/19 25 12/27/2024 CBC WITH DIFFE RENTI AL/PL ATELE T MCHC 32.7 g/dL 31.5-3 5.7 normal Not Available [facility] ([facility]) [address] [place], [address], 12/27/2024 08:11:45 12/27/19 25 12/27/2024 CBC WITH DIFFE RENTI AL/PL ATELE T RDW 13.5 % 11.7-1 5.4 Not Available [facility] ([facility]) [address] [place], [address], 12/27/2024 08:11:45 12/27/19 25 12/27/2024 CBC WITH DIFFE RENTI AL/PL ATELE T platelets 305 x10e3 /uL 150-45 0 normal Not Available [facility] ([facility]) [address] [place], [address], 12/27/2024 08:11:45 12/27/19 25 12/27/2024 CBC WITH DIFFE RENTI AL/PL ATELE T neutrophils 64 % not estab. normal Not Available [facility] ([facility]) [address] [facility], [place], [address], 12/27/2024 08:11:45 12/27/19 25 12/27/2024 CBC WITH DIFFE RENTI AL/PL ATELE T lymphs 24 % not estab. normal Not Available [facility]) [address] [facility], [place], [address], 12/27/2024 08:11:45 12/27/19 25 12/27/2024 CBC WITH DIFFE RENTI AL/PL ATELE T monocytes 8 % not estab. normal Not Available [facility] ([facility]) [address] [facility], [place], [address], 12/27/2024 08:11:45 12/27/19 25 12/27/2024 CBC WITH DIFFE RENTI AL/PL ATELE T eos 3 % not estab. normal Not Available [facility] ([facility]) [address] [facility], [place], [address], 12/27/2024 08:11:45 12/27/19 25 12/27/2024 CBC WITH DIFFE RENTI AL/PL ATELE T basos 1 % not estab. normal Not Available [facility] ([facility]) [address] [facility], [place], [address], 12/27/2024 08:11:45 12/27/19 25 12/27/2024 CBC WITH DIFFE RENTI AL/PL ATELE T immature cells POST TENSIONING IRONWORKER Not Available [facility]) [address] [place], [address], 12/27/2024 08:11:45 12/27/19 25 12/27/2024 CBC WITH DIFFE RENTI AL/PL ATELE T neutrophils (absolute) 6.3 x10e3 /uL 1.4-7. 0 normal Not Available [facility] ([facility]) [address] [place], [address], 12/27/2024 08:11:45 12/27/19 25 12/27/2024 CBC WITH DIFFE RENTI AL/PL ATELE T lymphs (absolute) 2.4 x10e3 /uL 0.7-3. 1 normal Not Available [facility] ([facility]) [address] [facility], [place], [address], 12/27/2024 08:11:45 12/27/19 25 12/27/2024 CBC WITH DIFFE RENTI AL/PL ATELE T monocytes(ab solute) 0.8 x10e3 /uL 0.1-0. 9 normal Not Available [facility] ([facility]) [address] [facility], [place], [address], 12/27/2024 08:11:45 12/27/19 25 12/27/2024 CBC WITH DIFFE RENTI AL/PL ATELE T eos (absolute) 0.3 x10e3 /uL 0.0-0. 4 normal Not Available [facility] ([facility]) [address] [facility], [place], [address], 12/27/2024 08:11:45 12/27/19 25 12/27/2024 CBC WITH DIFFE RENTI AL/PL ATELE T baso (absolute) 0.1 x10e3 /uL 0.0-0. 2 normal Not Available [facility] ([facility]) [address] [facility], [place], [address], 12/27/2024 08:11:45 12/27/19 25 12/27/2024 CBC WITH DIFFE RENTI AL/PL ATELE T immature granulocytes 0 % not estab. Not Available [facility] ([facility]) [address] [facility], [place], [address], 12/27/2024 08:11:45 12/27/19 25 12/27/2024 CBC WITH DIFFE RENTI AL/PL ATELE T immature grans (abs) 0.0 x10e3 /uL 0.0-0. 1 Not Available [facility] ([facility]) [address], [place], [address], 12/27/2024 08:11:45 12/27/19 25 12/27/2024 CBC WITH DIFFE RENTI AL/PL ATELE T NRBC POST T[employer]IONING IRONWORKER Not Available [facility] ([facility]) [address], [place], [address], 12/27/2024 08:11:45 12/27/19 25 12/27/2024 CBC WITH DIFFE RENTI AL/PL ATELE T hematology comments: POST TENSIONING IRONWORKER Not Available [facility] ([facility]) [address], [place], [address], 12/27/2024 08:11:45 12/27/19 25 12/27/2024 COMP. METAB OLIC PANEL (14) glucose 138 mg/dL 70-99 above high normal Not Available [facility] ([facility]) [address], [place], [address], 12/27/2024 08:11:46 12/27/19 25 12/27/2024 COMP. METAB OLIC PANEL (14) BUN 19 mg/dL 6-24 normal Not Available [facility] ([facility]) [address] [facility] [place], [address], 12/27/2024 08:11:46 12/27/19 25 12/27/2024 COMP. METAB OLIC PANEL (14) creatinine 0.89 mg/dL 0.57-1 .00 normal Not Available [facility] ([facility]) [address] [facility] [place], [address], 12/27/2024 08:11:46 12/27/19 25 12/27/2024 COMP. METAB OLIC PANEL (14) eGFR 77 mL/mi n/1.7 3 >59 normal Not Available [facility] ([facility]) [address] [facility] [place], [address], 12/27/2024 08:11:46 12/27/19 25 12/27/2024 COMP. METAB OLIC PANEL (14) BUN/creatini ne ratio 21 9-23 normal Not Available [facility] ([facility]) [address] [facility] [place], [address], 12/27/2024 08:11:46 12/27/19 25 12/27/2024 COMP. METAB OLIC PANEL (14) sodium 135 mmol/ L 134-14 4 normal Not Available [facility] ([facility]) [address] [facility] [place], [address], 12/27/2024 08:11:46 12/27/19 25 12/27/2024 COMP. METAB OLIC PANEL (14) potassium 4.2 mmol/ L 3.5-5. 2 normal Not Available [facility] ([facility]) [address] [facility] [place], [address], 12/27/2024 08:11:46 12/27/19 25 12/27/2024 COMP. METAB OLIC PANEL (14) chloride 88 mmol/ L 96-106 below low normal Not Available [facility] ([facility]) [address] [place], [address], 12/27/2024 08:11:46 12/27/19 25 12/27/2024 COMP. METAB OLIC PANEL (14) carbon dioxide, total 31 mmol/ L 20-29 above high normal Not Available [facility] ([facility]) [address] [facility] [place], [address], 12/27/2024 08:11:46 12/27/19 25 12/27/2024 COMP. METAB OLIC PANEL (14) calcium 9.5 mg/dL 8.7-10 .2 normal Not Available [facility] ([facility]) [address] [place], [address], 12/27/2024 08:11:46 12/27/19 25 12/27/2024 COMP. METAB OLIC PANEL (14) protein, total 8.0 g/dL 6.0-8. 5 normal Not Available [facility] ([facility]) [address] [place], [address], 12/27/2024 08:11:46 12/27/19 25 12/27/2024 COMP. METAB OLIC PANEL (14) albumin 3.5 g/dL 3.8-4. 9 below low normal Not Available [facility] ([facility]) [address] [place], [address], 12/27/2024 08:11:46 12/27/19 25 12/27/2024 COMP. METAB OLIC PANEL (14) globulin, total 4.5 g/dL 1.5-4. 5 Not Available [facility] ([facility]) [address] [place], [address], 12/27/2024 08:11:46 12/27/19 25 12/27/2024 COMP. METAB OLIC PANEL (14) bilirubin, total 0.5 mg/dL 0.0-1. 2 normal Not Available [facility] ([facility]) [address] [facility] [place], [address], 12/27/2024 08:11:46 12/27/19 25 12/27/2024 COMP. METAB OLIC PANEL (14) alkaline phosphatase 154 IU/L 44-121 above high normal Not Available [facility] ([facility]) [address] [facility] [place], [address], 12/27/2024 08:11:46 12/27/19 25 12/27/2024 COMP. METAB OLIC PANEL (14) AST (SGOT) 22 IU/L 0-40 normal Not Available [facility] ([facility]) [address] [facility] [place], [address], 12/27/2024 08:11:46 12/27/19 25 12/27/2024 COMP. METAB OLIC PANEL (14) ALT (SGPT) 8 IU/L 0-32 normal Not Available [facility] ([facility]) [address] [facility] [place], [address], 12/27/2024 08:11:46 12/27/19 25 12/27/2024 LIPID PANEL cholesterol, total 193 mg/dL 100-19 9 normal Not Available [facility] ([facility]) [address] [facility] [place], [address], 12/27/2024 08:11:46 12/27/19 25 12/27/2024 LIPID PANEL triglyceride s 104 mg/dL 0-149 normal Not Available [facility] ([facility]) [address] [place], [address], 12/27/2024 08:11:46 12/27/19 25 12/27/2024 LIPID PANEL HDL cholesterol 56 mg/dL >39 normal Not Available [facility] ([facility]) [address] [place], [address], 12/27/2024 08:11:46 12/27/19 25 12/27/2024 LIPID PANEL VLDL cholesterol macho 19 mg/dL 5-40 Not Available [facility] ([facility]) [address] [place], [address], 12/27/2024 08:11:46 12/27/19 25 12/27/2024 LIPID PANEL LDL chol calc ([facility]) 118 mg/dL 0-99 above high normal Not Available [facility] ([facility]) [address] [facility] [place], [address], 12/27/2024 08:11:46 12/27/19 25 12/27/2024 LIPID PANEL LDL calc comment: [employer] Not Available [facility] ([facility]) [address] [place], [address], 12/27/2024 08:11:46 12/27/19 25 12/27/2024 VITAM IN B12 AND FOLAT E vitamin B12 667 pg/mL 232-12 45 normal Not Available [facility] ([facility]) [address] [facility], [place], [address], 12/27/2024 08:11:47 12/27/19 25 12/27/2024 VITAM IN B12 AND FOLAT E folate (folic acid), serum 12.5 NG/mL >3.0 normal A serum folat e zev ntrat ion of less than 3.1 ng/mL is consi dered to repre sent clini macho defic iency . Not Available [facility] ([facility]) [address] [facility], [place], [address], 12/27/2024 08:11:47 12/27/19 25 12/27/2024 VITAM IN D, 25-HY DROXY vitamin D, 25-hydroxy 16.1 NG/mL 30.0-1 00.0 below low normal Vitam in D defic iency has been defin ed by the Insti tute of Medic ine and an Endoc rine Socie ty pract ice guide line as a level of serum 25-OH vitam in D less than 20 ng/mL (1,2) . The Endoc rine Socie ty went on to furth er defin e vitam in D insuf ficie ncy as a level betwe en 21 and 29 ng/mL (2). 1. IOM (Inst itute of Medic ine). 2009. Dieta ry refer ence bruce es for calci um and D. Tye crawford [place]: The Natio nal [facility] Press . 2. Kaela manrique MF, Salomon curiel [place], Sunil off-F errar i BENITO, et al. Evalu ation , treat ment, and preve ntion of vitam in D defic iency : an Endoc rine Socie ty clini macho pract ice guide line. JCEM. 2010; 96(7) :1911 -30. Not Available [facility] ([facility]) [address] [facility], [place], [address], 12/27/2024 08:11:47 12/27/19 25 12/27/2024 HIV AB/P2 4 AG WITH REFLE X HIV Ab/P24 Ag screen Non Reacti ve non reacti ve HIV-1 /HIV- 2 antib odies and HIV-1 p24 antig en were NOT detec sanford. There is no labor atory evide nce of HIV infec tion. HIV Negat betty Not Available [facility] ([facility]) [address] [facility], [place], [address], 12/27/2024 08:11:47 12/27/19 25 12/26/2024 HbA1c (hemo globi n A1c), blood HbA1c 10.2 Not Available [address], [address], 12/26/2024 13:42:34 06/20/20 24 06/20/2024 US, abdom en, compl ete [facility] [address] [place] [address] Phone: Fax: Name: ROMAN DELACRUZ Exam Date: 024 : [birth year] Age 54 years Gender : F Access ion: [id number] Physic juan carlos: VICENTE MONTANA Facili ty: [facility] Facili ty HSV: Outpat ient Exam: US ABD PROCED URE: US ABDOME N. HISTOR Y: Patien t is a 54 year old Female with abdomi nal pain. COMPAR ZENAIDA: None availa ble. TECHNI QUE: Two-di mensio nal graysc megan ultras ound of the abdome n was perfor med. Color Dopple r imagin g was also perfor med. FINDIN GS: The pancre as is subopt imally visual ized due to overly ing bowel gas. The visual ized segmen ts appear unrema rkable . The liver measur es 18.2 cm in length and demons trates increa sed echote xture withou t intrah epatic biliar y dilata tion. No masses are visual ized. The main portal vein demons trates normal hepato pedal flow. The gallbl adder demons trates echoge alessia sludge withou t perich olecys tic fluid or wall thicke kia. There are two gallst ones, larges t measur ing 0.8 cm. The common bile duct is promin ent measur ing 0.9 cm. The right kidney measur es 10.8 x 7.4 x 6.9 cm. Renal cortic al echote xture is mildly increa sed. There is no hydron ephros is. There are no stones . There are no cysts. The left kidney measur es 9.4 x 5.0 x 4.3 cm. Renal cortic al echote xture is mildly increa sed. There is no hydron ephros is. There are no stones . There are no cysts. The spleen measur es 10.3 cm in length and demons trates normal echote xture. There is no eviden ce of aneury sm within the visual ized segmen ts of the abdomi nal aorta. IVC is unrema rkable . IMPRES BASIL: 1. Increa sed hepati c echote xture, most common ly seen with steato sis. No mass. Correl ation with elevat ed liver enzyme s is recomm ended. 2. Echoge alessia gallbl adder sludge with two gallst ones, larges t measur ing 0.8 cm. No wall thicke kia or perich olecys tic fluid. Promin ent common bile duct measur ing 0.9 cm. 3. Mildly increa sed cortic al echote xture of the bilate ral kidney s, sugges tive of medica l renal diseas e. Thank you for allowi ng us to assist in the care of this patien t. Electr onical ly signed by: Manfred Garcia MD 2023 11:04 AM EDT RP Workst ation: [id number] Dictat ed By: Manfred Garcia Transc ribed By: Transc ribed On: 10:45 AM Electr onical ly signed by: Manfred Garcia Thank you for referr ROMAN Hakcett to [facility]. Legall y authen ticate d by MATT CONNELLY MD 06-20 10:45: 38 CC'ed Logic: Orderi ng Provid er: RUBÉN CARRERA CC Provid er: RUBÉN CARRERA Attend ing Provid er: RUBÉN CARRERA Referr ing Provid er: RUBÉN ZHANG DEBI Admitt ing Provid er: RUBNÉ LECHUGANABEEL CARRERA [id number] [facility] Centralized Scheduling [address] , [place], [address], 12/05/2024 10:47:19 07/01/2007/01/2024 CT, foot, w/ contr ast No observ ation record ed. [address], [place], [address], 07/07/2024 09:55:44 07/02/2007/01/2024 XR, foot, 3 or more view No observ ation record ed. [address], [place], [address], 07/07/2024 09:55:36 07/02/20 24 07/02/2024 US, doppl er, arter ial No observ ation record ed. [address], [place], [address], 07/07/2024 09:40:54 07/03/20 24 07/03/2024 XR, foot, 3 or more view No observ ation record ed. [address], [place], [address], 07/07/2024 09:40:15 07/03/20 24 07/03/2024 XR, chest No observ ation record ed. [address], [place], [address], 07/07/2024 09:40:29 07/12/20 24 07/12/2024 XR, chest No observ ation record ed. [address], [place], [address], 07/14/2024 16:29:36 07/12/20 24 07/12/2024 CT, ankle + foot, w/o contr ast No observ ation record ed. [address], [place], [address], 07/14/2024 16:29:54 07/14/20 24 07/14/2024 XR, foot No observ ation record ed. [place] [id number], [place], [address], 07/15/2024 12:51:13 08/04/20 24 08/04/2024 XR, foot No observ ation record ed. [address], [place], [address], 12/02/2024 18:01:47 08/26/20 24 08/25/2024 XR, foot, 3 or more view No observ ation record ed. [address], [place], [address], 12/02/2024 18:02:13 11/04/19 25 11/04/2024 XR, wrist No observ ation record ed. [address], [place], [address], 12/02/2024 18:02:32 11/04/19 25 11/04/2024 XR, wrist , 2 view No observ ation record ed. [address], [place], [address], 12/02/2024 18:02:47 11/04/19 25 11/04/2024 XR, foot, 2 view No observ ation record ed. [place] [id number], [place], [address], 12/02/2024 18:03:07 11/24/19 25 11/24/2024 CT, ankle + foot, w/o contr ast No observ ation record ed. [address], [place], [address], 12/02/2024 18:04:23 11/28/19 25 11/24/2024 imagi ng/di agnos tic resul t No observ ation record ed. [address], [place], [address], 12/02/2024 18:04:49 12/27/19 XR, chest , 2 view No observ ation record ed. [address] [facility], [place], [address], 12/29/2024 15:19:21 12/29/19 25 12/28/2024 XR, chest , 2 view No observ ation record ed. [address] (Radiology) [address] [facility], [place], [address], 12/29/2024 09:10:23 02/06/20 25 02/05/2025 XR, foot No observ ation record ed. [place] [id number], [place], [address], 02/13/2025 09:41:18 Result Notes Documentation Provider Name and Address Organization Details Recorded Time [facility] : [facility]in, [facility] 12/04/2024 13:13:35 Problems Name Problem SNOMED Code Status Onset Date Resolution Date Notes Provider Name and Address Organization Details Recorded Time Obstruct betty sleep apnea syndrome 73140517 Active 2023 Linn [place], SHIRA [address] [place], [address], [facility] [employer] 09/12/202 4 18:19:09 Cellulit is of right lower limb [id number] 784897 Active 2023 Darleen servin, [employer] 4 13:45:35 Diabetes mellitus 57577646 Active 2023 Problem Code: 250; Problem Code Type: ICD-9; Darleen servin, [employer] 4 11:54:14 Type 2 diabetes mellitus without complica tion 425194679 Active 2024 Problem Code: 250.00; Problem Code Type: ICD-9; Darleen servin, [employer] 5 13:42:32 Iron deficien cy anemia 77708560 Completed 201503/27/2016 Problem Code: D50.9; Problem Code Type: ICD-10; Laura servin, [employer] 3 16:02:19 Hypothyr oidism 01861871 Active 2014 Laura servin, [employer] 3 16:02:19 Uncontro lled type 2 diabetes mellitus 157229962 Completed 201401/27/2016 Laura servin, [facility]. 3 16:02:19 Uncontro lled type 2 diabetes mellitus 323174060 Completed 201306/12/2015 Laura servin, [facility]. 3 16:02:19 Severe obesity 56778521055 104 Active 2014 Problem Code: E66.01; Problem Code Type: ICD-10; Laura servin, [facility]. 3 16:02:19 Severe obesity 76483154936 104 Completed 201408/27/2015 Problem Code: E66.01; Problem Code Type: ICD-10; Laura servin, [facility]. 3 16:02:19 Refracto ry migraine with aura 968585294 Completed 201408/25/2015 Problem Code: G43.119; Problem Code Type: ICD-10; Laura servin, [facility]. 3 16:02:19 Hyperten sive disorder 02546647 Completed 201301/27/2016 Problem Code: I10; Problem Code Type: ICD-10; Laura servin, [facility]. 3 16:02:19 Pneumoni a 641257770 Completed 201508/08/2016 Problem Code: J18.9; Problem Code Type: ICD-10; Laura servin, [facility]. 3 16:02:19 Pain of right shoulder joint [id number] 474595 Completed 201410/24/2015 Problem Code: M25.511; Problem Code Type: ICD-10; Laura servin, [employer] 3 16:02:19 Pain of shoulder region 04599159 Completed 201408/07/2015 Laura servin, [employer] 3 16:02:19 Pain in left knee Completed 201407/24/2015 Problem Code: M25.562; Problem Code Type: ICD-10; Laura servin, [facility]. 3 16:02:19 Pain in left knee Completed 201306/12/2015 Problem Code: M25.562; Problem Code Type: ICD-10; Laura servin, [facility]. 3 16:02:19 Dyspnea 900022585 Completed 201505/13/2016 Problem Code: R06.02; Problem Code Type: ICD-10; Laura servin, [facility]. 3 16:02:19 Type 2 diabetes mellitus without complica tion 943523480 Completed 201312/23/2014 Problem Code: 250.00; Problem Code Type: ICD-9; Darleen Bean [facility] 5 13:42:32 Diabetes mellitus 86361175 Completed 201406/12/2015 Problem Code: 250; Problem Code Type: ICD-9; Darleen servin [facility]. 4 11:54:14 Morbid obesity 774882142 Completed 201408/27/2015 Problem Code: 278.01; Problem Code Type: ICD-9; Laura servin [facility]. 3 16:02:19 Morbid obesity 880530983 Completed 201406/09/2016 Problem Code: 278.01; Problem Code Type: ICD-9; Lauar servin [facility]. 3 16:02:19 Benign essentia l hyperten basil 3022339 Active 2013 Problem Code: 401.1; Problem Code Type: ICD-9; Laura servin [facility]. 3 16:02:19 Knee pain Completed 201407/24/2015 Problem Code: 719.46; Problem Code Type: ICD-9; Laura servin [facility]. 3 16:02:19 Shoulder joint pain 108668100 Completed 201408/07/2015 Problem Code: 719.41; Problem Code Type: ICD-9; Laura servin [facility]. 3 16:02:19 Shoulder joint pain 854177822 Completed 201410/24/2015 Problem Code: 719.41; Problem Code Type: ICD-9; Laura servin [employer] 3 16:02:19 Problem Notes None recorded. Procedures Surgical History Date Name Laterality Status Provider Name and Address Organization Details Recorded Time 07/06/20 debridement of toe completed [facility] 08/26/2024 11:57:54 07/02/20 amputation of toe completed [facility]. 08/26/2024 11:57:20 11/09/19 24 Most Recent Mammogram completed Darleen Bean [facility]. 12/07/2023 10:08:57 09/25/20 14 Total knee arthroplasty completed Laura Walsh [facility]. 07/27/2023 16:02:20 [facility] 07/26/2023 14:32:40 Joint Replacement completed [employer]. 07/26/2023 14:32:41 Imaging Results None recorded. Procedure Notes None recorded. Medical Equipment None Reported. Allergies Allergen ID Allergen Name Allergen Category Reaction Reaction Severity Criticality Documentation Date Start Date Code Code System Note Provider Name and Address Organization Details Recorded Time 12600 Product containin g angiotens in-conver ting enzyme inhibitor (product) medicatio n cough moderate Not available 06/06/2022 15121 009 SNOMED Aller gyCod e: ''; Aller gyNam e: 'REILLY Inhib itors '; Aller gyCon ceptT ype: ''; Laura servin, [facility]. 3 16:02:19 22343 metformin hydrochlo ride medicatio n Not available Not available Not available 06/06/2022 12526 3 RxNorm Aller gyCod e: ''; Aller gyNam e: 'Metf ormin HCl'; Aller gyCon ceptT ype: ''; Laura Walsh malathi, [facility]. 3 16:02:19 07350 Inapsine medicatio n Not available Not available Not available 06/06/2022 43115 3 RxNorm Aller gyCod e: '2025 03'; Aller gyNam e: 'Inap sine' ; Aller gyCon ceptT ype: 'RxNO RM'; Laura Nico servin, [facility]. 3 16:02:19 90155 Avelox medicatio n Not available Not available Not available 06/06/2022 21862 6 RxNorm Laura Walsh null, [facility]. 3 16:02:19 15654 ibuprofen medicatio n Not available Not available Not available 06/06/2022 5640 RxNorm Laura servin, [employer] 3 16:02:19 23119 Rocephin medicatio n Not available Not available Not available 06/06/2022 9449 RxNorm Laura servin, [employer] 3 16:02:19 89161 ibuprofen medicatio n Not available Not available Not available 07/26/2023 5640 RxNorm Cami Luis A null, [employer] 3 14:32:57 32235 Rocephin medicatio n Not available Not available Not available 07/26/2023 9449 RxNorm Cami Sandwich null, [employer] 3 14:33:26 36051 Avelox medicatio n Not available Not available Not available 07/26/2023 59379 6 RxNorm Cami Sandwich null, [employer] 3 14:33:36 18641 Inapsine medicatio n Not available Not available Not available 07/26/2023 85909 3 RxNorm Cami Sandwich null, [employer] 3 14:33:46 Medications Name Sig Start Date Stop Date Status Note LastModified by Organization Details LastModified Time spray kit 10ml USE 10 ML FOR MEDICATI ON ADMINIST RATION WITH SPRAY BOTTLE- DIRECTIO NS FOR USE (SK), #2 30ML SPRAY BOTTLES, #1 FUNNEL, SALINE 5ML VIALS #600ML 10/29 completed Not Available Not Available Not Available clindamyc in/mupiro beck/itrac onazole 150/20/50 mg topical capsule [91295] MIX THE CONTENTS OF 1 CAPSULE WITH DILUENT. APPLY TO AFFECTED AREAS. PERFORM TWICE DAILY. 07/26 completed Not Available Not Available Not Available losartan 50 mg tablet Take 1 tablet(s ) by mouth daily 12/23 completed Not Available Not Available Not Available Santyl 250 unit/gram topical ointment Apply nickel thick amount to wound bed daily. Wound Measurem ent 1.2 cm x 2 cm x 0.3 cm. 08/26 completed Not Available Not Available Not Available fluoxetin e 40 mg capsule Take 1 capsule( s) by mouth daily 01/26 completed Not Available Not Available Not Available cyclobenz aprine 10 mg tablet 1 tablet QID 07/26 completed Not Available Not Available Not Available pramipexo le 1 mg tablet Take 1 at bedtime 10/29 completed Not Available Not Available Not Available furosemid e 40 mg tablet TAKE ONE TABLET BY MOUTH TWICE DAILY active Not Available Not Available No t Available methocarb ailyn 500 mg tablet Take 1 tablet 4 times a day by oral route for 90 days. 12/14 completed Not Available Not Available Not Available silver sulfadiaz ine 1 % topical cream APPLY A 1/16 INCH (1.5 MM) THICK LAYER TO ENTIRE BURN AREA BY TOPICAL ROUTE 2 TIMES PER DAY active Not Available Not Available No t Available metformin 500 mg tablet Take one twice daily 06/16 completed Not Available Not Available Not Available Augmentin 875 mg-125 mg tablet Take 1 tablet(s ) by mouth q12h for 10 days 02/08 completed Not Available Not Available Not Available albuterol sulfate 0.63 mg/3 mL solution for nebulizat ion inhale contents of ONE vial via nebulize r four times a DAY as directed active Not Available Not Available No t Available levothyro xine 137 mcg tablet TAKE ONE TABLET BY MOUTH EVERY DAY 02/06 completed Not Available Not Available Not Available carvedilo l 25 mg tablet TAKE ONE TABLET BY MOUTH TWICE DAILY active Not Available Not Available No t Available Colace 100 mg capsule Take one tablet(s ) daily. 01/26 completed Not Available Not Available Not Available colistin (colistim ethate sodium) 150 mg solution for injection MIX CONTENTS OF 2 VIALS WITH DILUENT. APPLY TO AFFECTED AREAS. PERFORM TWICE DAILY. 07/26 completed Not Available Not Available Not Available gabapenti n 600 mg tablet TAKE ONE TABLET BY MOUTH THREE TIMES DAILY active Not Available Not Available No t Available doxycycli ne hyclate 100 mg capsule TAKE ONE CAPSULE BY MOUTH EVERY TWELVE HOURS 05/08 completed Not Available Not Available Not Available clindamyc in HCl 300 mg capsule TAKE ONE CAPSULE BY MOUTH THREE TIMES DAILY FOR INFECTIO N FOR 10 DAYS -- FINISH ALL MEDICINE -- take with a large GLASS of water active Not Available Not Available No t Available loperamid e 2 mg capsule as directed 08/27 completed Not Available Not Available Not Available triamcino lone acetonide 0.5 % topical cream APPLY A THIN LAYER TO THE AFFECTED AREA(S) BY TOPICAL ROUTE 2 TIMES PER DAY 08/26 completed Not Available Not Available Not Available azithromy beck 250 mg tablet TAKE 2 TABLETS BY MOUTH ON DAY 1, THEN TAKE 1 TABLET DAILY ON DAYS 2-5 active Not Available Not Available No t Available metoprolo l tartrate 100 mg tablet Take 1 tablet(s ) by mouth bid 01/26 completed Not Available Not Available Not Available Novolin N NPH U-100 Insulin isophane 100 unit/mL subcutane ous susp Inject 6 units qHS subcutan eously 2015 active Not Available Not Available Not Avai lable tizanidin e 4 mg tablet TAKE ONE TABLET BY MOUTH TWICE DAILY NEEDED FOR 30 DAYS 2024 active Not Available Not Available Not Avai lable clarithro mycin 500 mg tablet TAKE ONE TABLET BY MOUTH EVERY TWELVE HOURS FOR FOURTEEN DAYS 10/29 completed Not Available Not Available Not Available prednison e 20 mg tablet Take 1 tablet twice a day by oral route. 07/26 completed Not Available Not Available Not Available isosorbid e mononitra te ER 30 mg tablet,ex tended release 24 hr 07/26 completed Not Available Not Available Not Available ropinirol e 3 mg tablet TAKE ONE TABLET BY MOUTH AT BEDTIME active Not Available Not Available No t Available rizatript an 10 mg tablet Take 1 tablet(s ) by mouth prn may repeat in 2 hours. No more than 3 doses per day. 09/22 completed Not Available Not Available Not Available gabapenti n 400 mg capsule TAKE ONE CAPSULE BY MOUTH THREE TIMES DAILY FOR 30 DAYS 08/26 completed Changed to 600 mg in hospital Not Available Not Available Not Available pantopraz ole 40 mg intraveno us solution Inject by intraven ous route. 07/26 completed Not Available Not Available Not Available permethri n 5 % topical cream APPLY (THOROUG HLY MASSAGE INTO SKIN FROM HEAD TO SOLES OF FEET) BY TOPICAL ROUTE ONCE LEAVE ON FOR 8-14 HouRs, THEN REMOVE BY THOROUGH WASHING 10/29 completed Not Available Not Available Not Available topiramat e 25 mg tablet Take 1 tablet(s ) by mouth bid 06/12 completed Not Available Not Available Not Available metronida zole 500 mg tablet TAKE ONE TABLET BY MOUTH TWICE DAILY FOR 7 DAYS 12/26 completed Not Available Not Available Not Available Vitamin C 500 mg chewable tablet Take 1 tablet 4 times a day by oral route for 90 days. 2024 active Not Available Not Available Not Avai lable sulfameth oxazole 800 mg-trimet hoprim 160 mg tablet TAKE ONE TABLET BY MOUTH TWICE DAILY 12/26 completed Not Available Not Available Not Available tramadol 50 mg tablet TAKE ONE TABLET BY MOUTH EVERY 6 HOURS NEEDED FOR PAIN active Not Available Not Available No t Available butalbita l-acetami nophen-ca ffeine 50 mg-325 mg-40 mg tablet Take one a day as needed for BENITO 10/24 completed Not Available Not Available Not Available simvastat in 40 mg tablet TAKE ONE TABLET BY MOUTH DAILY active Not Available Not Available No t Available levothyro xine 25 mcg tablet Take 1 tablet every day by oral route. 05/08 completed Not Available Not Available Not Available Synthroid 175 mcg tablet Take 1 tablet(s ) by mouth daily 03/01 completed Not Available Not Available Not Available nystatin- triamcino lone 100,000 unit/gram -0.1 % topical ointment APPLY TO THE AFFECTED AREA(S) BY TOPICAL ROUTE 2 TIMES PER DAY 07/26 completed Not Available Not Available Not Available levothyro xine 100 mcg tablet Take 1 tablet every day by oral route. 08/27 completed Not Available Not Available Not Available isosorbid e dinitrate 30 mg tablet TAKE ONE TABLET BY MOUTH TWICE DAILY active Not Available Not Available No t Available levothyro xine 88 mcg tablet TAKE ONE TABLET BY MOUTH DAILY 02/07 completed Not Available Not Available Not Available famotidin e 20 mg tablet Take 1 tablet daily 07/13 completed Not Available Not Available Not Available methocarb ailyn 750 mg tablet 07/26 completed Not Available Not Available Not Available Percocet 10 mg-325 mg tablet Take 1 tablet(s ) by mouth q6h prn for pain 08/27 completed Not Available Not Available Not Available Imodium A-D 2 mg tablet as directed 2024 active Not Available Not Available Not Avai lable gabapenti n 800 mg tablet Take 1 PO TID 01/26 completed Not Available Not Available Not Available furosemid e 80 mg tablet 1 tablet daily PRN 10/29 completed Not Available Not Available Not Available trazodone 100 mg tablet Take 1 tablet 3 times a day by oral route. 07/26 completed Not Available Not Available Not Available benzonata te 100 mg capsule TAKE ONE CAPSULE BY MOUTH every EIGHT hours NEEDED, FOR cough AND congesti on active Not Available Not Available No t Available pantopraz ole 40 mg tablet,de layed release TAKE ONE TABLET BY MOUTH EVERY DAY active Not Available Not Available No t Available trazodone 150 mg tablet TAKE ONE TABLET BY MOUTH AT BEDTIME active Not Available Not Available No t Available ferrous sulfate 325 mg (65 mg iron) tablet one tablet 4 times a day 08/27 completed Not Available Not Available Not Available fluoxetin e 20 mg tablet Take 1 tab po q day 08/25 completed Not Available Not Available Not Available metformin 1,000 mg tablet Take 1 PO in am, 1/2 PO in afternoo n, 1 PO in pm 07/24 completed Not Available Not Available Not Available levothyro xine 125 mcg tablet Take 1 tablet(s ) by mouth daily 08/27 completed Not Available Not Available Not Available levothyro xine 150 mcg tablet Take 1 tablet every day by oral route. 10/30 completed Not Available Not Available Not Available Humulin 70/30 U-100 Insulin 100 unit/mL subcutane ous suspensio n Inject 40 units bid 01/26 completed Not Available Not Available Not Available metoprolo l tartrate 50 mg tablet Take 1 tablet(s ) by mouth bid 2015 active Not Available Not Available Not Avai lable methimazo le 5 mg tablet TAKE 1/2 TABLET BY MOUTH EVERY DAY 08/26 completed Not Available Not Available Not Available diclofena c sodium 75 mg tablet,de layed release Take 1 tablet(s ) by mouth bid 07/26 completed Not Available Not Available Not Available levothyro xine 200 mcg tablet Take 1 tablet(s ) by mouth daily 07/26 completed Not Available Not Available Not Available mupirocin 2 % topical ointment APPLY A SMALL AMOUNT TO THE AFFECTED AREA BY TOPICAL ROUTE 2 TIMES PER DAY 08/26 completed Not Available Not Available Not Available Hankinson 10 mg-325 mg tablet Take 1 tablet(s ) by mouth q6h prn 01/26 completed Not Available Not Available Not Available furosemid e 20 mg tablet Take 1 pill daily 04/29 completed Not Available Not Available Not Available cefuroxim e axetil 500 mg tablet Take 1 tablet(s ) by mouth bid 04/27 completed Not Available Not Available Not Available levofloxa beck 500 mg tablet take ONE AND ONE-HALF tablet by MOUTH FOR 10 DAYS 12/26 completed Not Available Not Available Not Available levofloxa beck 750 mg tablet 12/26 completed Not Available Not Available Not Available methylpre dnisolone 4 mg tablets in a dose pack take by mouth as directed on pack for 6 days 05/08 completed Not Available Not Available Not Available albuterol sulfate HFA 90 mcg/actua tion aerosol inhaler INHALE TWO puffs by MOUTH every four hours as needed active Not Available Not Available No t Available Vitamin D2 1,250 mcg (50,000 unit) capsule TAKE ONE CAPSULE BY MOUTH weekly active Not Available Not Available No t Available Naprosyn 500 mg tablet Take 1 tablet(s ) by mouth bid 06/12 completed Not Available Not Available Not Available ondansetr on 4 mg disintegr ating tablet DISSOLVE ONE TABLET ON THE TONGUE every four TO six hours as needed active Not Available Not Available No t Available topiramat e 100 mg tablet Take 1 tablet(s ) by mouth bid 01/26 completed Not Available Not Available Not Available losartan 100 mg tablet Take 1 tablet(s ) by mouth daily 10/29 completed Not Available Not Available Not Available fluoxetin e 20 mg capsule Take 1 capsule twice a day by oral route for 90 days. 10/29 completed Not Available Not Available Not Available lisinopri l 2.5 mg tablet TAKE ONE TABLET BY MOUTH EVERY DAY active Not Available Not Available No t Available Dilaudid- HP (PF) 10 mg/mL injection solution Take 10 mg every 3 hours by injectio n route. active Dr. Goddard Not Available Not Available No t Available ropinirol e 4 mg tablet 07/26 completed Not Available Not Available Not Available oxycodone 5 mg tablet TAKE ONE TABLET BY MOUTH EVERY 4 TO 6 HOURS NEEDED FOR post op pain MAY CAUSE DROWSINE SS 12/26 completed Not Available Not Available Not Available hydroxyzi ne pamoate 25 mg capsule TAKE ONE CAPSULE BY MOUTH THREE TIMES DAILY NEEDED active Not Available Not Available No t Available One Daily Multivita min tablet Take 1 tablet by mouth 1 (one) time each day. active Not Available Not Available No t Available escitalop amari 20 mg tablet TAKE ONE TABLET BY MOUTH EVERY DAY active Not Available Not Available No t Available topiramat e 50 mg tablet Take 1 tablet(s ) by mouth bid 08/25 completed Not Available Not Available Not Available duloxetin e 60 mg capsule,d elayed release TAKE ONE CAPSULE BY MOUTH EVERY DAY active Not Available Not Available No t Available lactulose 10 gram/15 mL oral solution Take 15 mL every day by oral route as needed for 3 days. 10/29 completed Not Available Not Available Not Available Humulin 70/30 U-100 Insulin 10/29 completed Not Available Not Available Not Available furosemid e take 80mg 2 times daily 07/26 completed Not Available Not Available Not Available gabapenti n 400mg 4 times a day 07/26 completed Not Available Not Available Not Available [facility]SC Levothyro xine Sodium Take 1 capsule( s) by mouth daily before breakfas t. 01/26 completed Not Available Not Available Not Available Levemir FlexPen 100 unit/mL (3 mL) solution subcutane ous insulin pen 26 units twice a day 10/29 completed Not Available Not Available Not Available Zostavax (PF) 19,400 unit/0.65 mL subcutane ous suspensio n 0.65 ml subcutan eous once 11/24 completed Not Available Not Available Not Available fenofibra te nanocryst allized 48 mg tablet Take 1 tablet(s ) by mouth daily 04/05 completed Not Available Not Available Not Available Januvia 50 mg tablet Take 1 tablet(s ) by mouth twice daily 06/17 completed Not Available Not Available Not Available Lantus Solostar U-100 Insulin 100 unit/mL (3 mL) subcutane ous pen INJECT 20 UNITS TWICE DAILY SUBCUTAN EOUSLY active Not Available Not Available No t Available oxycodone 10 mg tablet TAKE ONE TABLET BY MOUTH EVERY 4 TO 6 HOURS NEEDED FOR SEVERE PAIN FOR 7 DAYS MAY CAUSE DROWSINE SS 12/26 completed Not Available Not Available Not Available diclofena c 1 % topical gel APPLY 2 GRAMS TO THE AFFECTED AREA(S) BY TOPICAL ROUTE 4 TIMES PER DAY 2023 active Not Available Not Available Not Avai lable fenofibra te 54 mg tablet TAKE ONE TABLET BY MOUTH EVERY DAY active Not Available Not Available No t Available Dulera 200 mcg-5 mcg/actua tion HFA aerosol inhaler Inhale 2 puff(s) by mouth bid 01/26 completed Not Available Not Available Not Available Tradjenta 5 mg tablet Take 1 tablet(s ) by mouth daily 01/26 completed Not Available Not Available Not Available lactulose 10 gram/15 mL (15 mL) oral solution Take 15 mL every day by oral route as needed for 3 days. 01/28 completed Not Available Not Available Not Available Tudorza Pressair 400 mcg/actua tion breath activated Inhale 1 inhalati on(s) by mouth bid 01/26 completed Not Available Not Available Not Available Humulin 70/30 U-100 Insulin KwikPen 100 unit/mL subcutane ous INJECT 60 UNITS SUBCUTAN EOUSLY TWICE DAILY active Not Available Not Available No t Available Sivextro 200 mg tablet 12/26 completed Not Available Not Available Not Available Jardiance 10 mg tablet Take 1 tablet(s ) by mouth qam 01/26 completed Not Available Not Available Not Available Trelegy Ellipta 100 mcg-62.5 mcg-25 mcg powder for inhalatio n INHALE ONE PUFF by MOUTH ONCE daily as directed active Not Available Not Available No t Available Ozempic 1 mg/dose (2 mg/1.5 mL) subcutane ous pen injector Inject 1 mg every week by subcutan eous route. 02/06 completed Not Available Not Available Not Available Ozempic 0.25 mg or 0.5 mg (2 mg/1.5 mL) subcutane ous pen injector 07/26 completed Not Available Not Available Not Available FreeStyle Joelle 14 Day Sensor kit change every 14 days, use to monitor blood glucose active Not Available Not Available No t Available FreeStyle Joelle 14 Day Sensor active Not Available Not Available Not Available Semglee Pen U-100 Insulin 07/26 completed Not Available Not Available Not Available Ozempic 1 mg/dose (4 mg/3 mL) subcutane ous pen injector Inject 1 mg every week by subcutan eous route. 05/08 completed Not Available Not Available Not Available Ozempic 2 mg/dose (8 mg/3 mL) subcutane ous pen injector INJECT 2mg SUBCUTAN EOUSLY weekly active Not Available Not Available No t Available Ozempic 0.25 mg or 0.5 mg (2 mg/3 mL) subcutane ous pen injector Inject 1 mg every week by subcutan eous route. 09/17 completed Not Available Not Available Not Available naloxone 3 mg/actuat ion nasal spray Take by nasal route. active Not Available Not Available No t Available Vitals Date Recorded Body height Body mass index (BMI) Body weight Heart rate Oxygen saturation Oxygen saturation in Arterial blood by Pulse oximetry Systolic blood pressure Diastolic blood pressure Provider Name and Address Organization Details Last Updated DateTime 167.64 cm 41.5 kg/m2 953511. 34 g 74 /min 87 % 87 % 131 mm[Hg] 82 mm[Hg] Darleen Bean [employer] 5 14:03:24 Date Recorded Body height Body mass index (BMI) Body weight Heart rate Oxygen saturation Oxygen saturation in Arterial blood by Pulse oximetry Systolic blood pressure Diastolic blood pressure Provider Name and Address Organization Details Last Updated DateTime 4 167.64 cm 41.5 kg/m2 341271. 94 g 83 /min 92 % 92 % 137 mm[Hg] 77 mm[Hg] Darleen Bean [employer] 4 15:06:39 Date Recorded Body height Body mass index (BMI) Body weight Heart rate Oxygen saturation Oxygen saturation in Arterial blood by Pulse oximetry Systolic blood pressure Diastolic blood pressure Systolic blood pressure Diastolic blood pressure Systolic blood pressure Diastolic blood pressure Provider Name and Address Organization Details Last Updated DateTime 4 167.64 cm 40.9 kg/m2 106071. 59 g 78 /min 91 % 91 % 181 mm[Hg] 83 mm[Hg] 170 mm[Hg] 91 mm[Hg] 139 mm[Hg] 82 mm[Hg] Autumn Sosa [facility] 4 14:42:11 Date Recorded Body height Body mass index (BMI) Body weight Heart rate Oxygen saturation Oxygen saturation in Arterial blood by Pulse oximetry Systolic blood pressure Diastolic blood pressure Provider Name and Address Organization Details Last Updated DateTime 4 167.64 cm 40 kg/m2 905165. 91 g 79 /min 92 % 92 % 139 mm[Hg] 79 mm[Hg] Darleen Bean [employer] 4 15:08:07 Date Recorded Body height Body mass index (BMI) Body weight Heart rate Oxygen saturation Oxygen saturation in Arterial blood by Pulse oximetry Systolic blood pressure Diastolic blood pressure Provider Name and Address Organization Details Last Updated DateTime 4 167.64 cm 42.9 kg/m2 708919. 57 g 61 /min 90 % 90 % 139 mm[Hg] 72 mm[Hg] Darleen Bean [facility] 4 11:52:41 Social History Question Answer Notes LastModified by Organizat ion Details LastModified Time Tobacco Smoking Status Current Every Day Smoker Cami servin, [facility] [employer] 07/26/2023 14:32:40 Do You Have An Advance Directive? No Information n ot available 07/26/2023 Is Your Home Air Conditioned? Yes Information not available 07/26/2023 How Many Years Have You Consumed Alcohol? 5 Information not available 07/26/2023 Do You Wear A Helmet When Biking? No Information not available 07/26/2023 Are You Blind Or Do You Have Difficulty Seeing? No Information n ot available 07/26/2023 What Is Your Level Of Caffeine Consumption? Moderate Information not available 07/26/2023 In The 14 Days Before Symptom Onset, Have You Had Close Contact With A Laboratory-confirm ed COVID-19 While That Case Was Ill? No Information n ot available 07/26/2023 In The 14 Days Before Symptom Onset, Have You Had Close Contact With A Person Who Is Under Investigation For COVID-19 While That Person Was Ill? No Information not available 07/26/2023 Have You Been To An Area Known To Be High Risk For COVID-19? No Information not available 07/26/2023 What Type Of Diet Are You Following? DIABETIC Information n ot available 07/26/2023 How Many Days Of Moderate To Strenuous Exercise, Like A Brisk Walk, Did You Do In The Last 7 Days? 0 Information not available 07/26/2023 Have There Been Any Changes To Your Family Or Social Situation? No Information no t available 07/26/2023 Are There Any Guns Present In Your Home? No Information not available 07/26/2023 Which Of Your Hands Is Dominant? Right Information n ot available 07/26/2023 What Is Your Home Situation? Father Information not available 07/26/2023 Do You Have A Medical Power Of Process Control Manager? No Information not available 07/26/2023 What Was The Date Of Your Most Recent Tobacco Screening? 12/26/2024 Information not available 12/26/2024 What Is Your Current Pack Years? 30ormorepacky ears Information not available 08/26/2024 Do You Have Any Pets? Yes Information not available 07/26/2023 What Is Your Relationship Status? Single Information not available 07/26/2023 Have You Repeated Any Grades? No Information not available 07/26/2023 Do You Use Your Seat Belt Or Car Seat Routinely? Yes Information not available 07/26/2023 Are You Sexually Active? No Information not available 07/26/2023 Do You Have Any Siblings? Yes Information not available 07/26/2023 Do You Have Smoke And Carbon Monoxide Detectors In Your Home? Yes Information not available 07/26/2023 At What Age Did You Start Smoking Tobacco? 15 Information not available 07/26/2023 Are You Passively Exposed To Smoke? Yes Information no t available 07/26/2023 Are There Any Smokers In Your House? Yes Information not available 07/26/2023 How Much Tobacco Do You Smoke? 0.5 PPD Information not available 07/26/2023 Do You Use Sunscreen Routinely? No Information not available 07/26/2023 Has Tobacco Cessation Counseling Been Provided? Yes Information not available 07/26/2023 On What Date Was Tobacco Cessation Counseling Provided? 12/26/2024 Information not available 12/26/2024 How Many Years Have You Smoked Tobacco? 35 Information not available 07/26/2023 Have You Recently Traveled Abroad? No Information not available 07/26/2023 Do You Have Difficulty Walking Or Climbing Stairs? Yes Information not available 07/26/2023 How Many Days In The Past Year Have You Consumed 4 Or More Drinks? 25 Information not available 07/26/2023 Sex: Female Functional Status Question Answer Note LastModified by Organizat ion Details LastModified Time Do you use any illicit or recreational drugs? No Information not available 07/26/2023 What is your level of alcohol consumption? Occasional Information not available 07/26/2023 Are you currently employed? No Information not available 07/26/2023 Are you able to walk? YESASSIST Information not available 07/26/2023 Do you have difficulty doing errands alone? No Information not available 07/26/2023 Are you able to care for yourself? Yes Information n ot available 07/26/2023 Do you have difficulty dressing or bathing? No Information not available 07/26/2023 What is your exercise level? Occasional Information not available 07/26/2023 Mental Status Question Answer Note LastModified by Organization D etails LastModified Time Do you have difficulty concentrating, remembering or making decisions? No Information no t available 07/26/2023 Are you or have you been involved with bullying? No Information not available 07/26/2023 Family History Relationship Description Onset Age of this Age Resolved Age Notes LastModified by Organization Details LastModified Time Unspecified Relation Family history of diabetes mellitus type 2 Relati ve: ''; [email or web address] Not available 07/27/2023 16:02:19 Unspecified Relation Family history of Hypertension Relati ve: ''; [email or web address] Not available 07/27/2023 16:02:19 Notes:*Procedure Description : Documented family medical history in mother*Relative: Mother *Procedure Description: Documented family medical history in father*Relative: Father *Procedure Description: Documented family medical history in brother*Relative: Brother Medical History Condition Response Hypothyroidism Y COPD Y Depression Y Arthritis Y Acid Reflux (GERD) Y High Cholesterol Y Headaches Y Fibromyalgia Y Thyroid Problems Y Diabetes Y Hypertension Y Gynecological History Statement/Question Response If Post Menopausal, Age at Menopause 46 Menses Monthly N HPV Vaccine N Date of Last Pap Smear Current Control Method Menopause Most Recent Mammogram 11/09/2023 Obstetrics History GPAL:G 0 P 0 0 0 0 Immunizations Vaccine Type Date Status Note Provider Nam e and Address Organization Details Recorded Time Influenza, split virus, quadrivalent, PF 3 completed Linn Montana APRN [address] [place], [address], [place] [employer] 07/26/2023 18:00:13 pneumococcal polysaccharide PPV23 3 completed Linn Montana, MA[employer]GER [employer] [address] [place], [address], [employer] 07/26/2023 18:00:13 Pneumococcal conjugate PCV 13 5 completed Laura servin, [employer] 07/27/2023 16:02:20 pneumococcal polysaccharide PPV23 4 completed Laura Walsh null, [employer] 07/27/2023 16:02:20 Influenza, high-dose, quadrivalent, PF 0 completed Darleen Bean null, [employer] 02/07/2024 15:36:04 MMR 7 completed Darleen Velascoy null, [employer] 02/07/2024 15:36:04 COVID-19, mRNA, LNP-S, PF, 30 mcg/0.3 mL dose 1 completed Darleen [place] null, [employer] 02/07/2024 15:36:04 COVID-19, mRNA, LNP-S, PF, 30 mcg/0.3 mL dose 1 completed Darleen Velascoy null, [employer] 02/07/2024 15:36:04 pneumococcal polysaccharide PPV23 9 completed Darleen [place] null, [employer] 02/07/2024 15:36:04 pneumococcal polysaccharide PPV23 6 completed Darleen [place] null, [employer] 02/07/2024 15:36:04 Influenza, split virus, trivalent, PF 9 completed Darleen Hodgelly null, [employer] 02/07/2024 15:36:04 Influenza, split virus, trivalent, PF 7 completed Darleen Hodgelly null, [employer] 02/07/2024 15:36:04 Influenza, split virus, quadrivalent, PF 8 completed Darleen servin, [place] [employer] 02/07/2024 15:36:04 Influenza, split virus, quadrivalent, PF 2 completed Darleen Hodgelly [place], [place] [employer] 02/07/2024 15:36:04 Influenza, split virus, quadrivalent, PF 1 completed Darleen servin, [place] [employer] 02/07/2024 15:36:04 Past Encounters Encounter ID Performer Location Encounter Start Date Encounter Closed Date Diagnosis/Indication Diagnosis SNOMED-CT Code Diagnosis ICD10 Code Diagnosis Note [id number] Linn Montana [place] [id number] 07/26/2023 13:56:26 07/26/2023 15:33:02 Abdominal pain 98911352 R10.9 Essential hypertension 47063846 I10 Hyperlipidemia 20325377 E78.5 Hypothyroidism 10319412 E03.9 Vitamin D deficiency 347 54398 E55.9 Vitamin B deficiency 479 35454 E53.9 Administra tion of influenza vaccine 11655530 Z23 Diarrhea 65282554 R19.7 Type 2 norma betes mellitus without complication 831156770 E11.9 Diabetic p eripheral neuropathy 368462392 E11.40 Chronic low back pain 27 1180078 M54.50 Nausea 663619379 R11.0 Gastroesop hageal reflux disease without esophagitis 939022303 K21.9 Restless legs 71551744 G 25.81 Primary insomnia 3025765 F51.01 Dysthymia 86462745 F34.1 Body mass index 40+ - severely obese 903082382 Z68.41 [id number] Linn Montana [place] [address] 08/27/2023 10:16:00 08/27/2023 11:12:34 Cellulitis of lower limb 359497141 L03.119 Diabetic p eripheral neuropathy 227420766 E11.40 Constipation 27379773 K5 9.00 Abdominal pain 39449572 R10.9 Body mass index 40+ - severely obese 145200523 Z68.41 [id number] [place] [address] 09/17/2023 13:19:20 09/17/2023 14:45:00 Crusted scabies 413557351 B86 Pruritic rash 96778425 L 28.2 Body mass index 40+ - severely obese 651288345 Z68.41 [id number] Linn Montana [place] [phone] 10/29/2023 09:36:41 10/29/2023 10:34:44 Diabetes mellitus 73763141 E11.9 Screening for malignant neoplasm of breast 804672649 Z12.39 Long-term drug therapy 438079996 Z79.899 Essential hypertension 17398506 I10 Chronic low back pain 27 6504049 M54.50 Dysthymia 83295695 F34.1 Hyperlipidemia 98936196 E78.5 Diabetic p eripheral neuropathy 639283980 E11.40 Type 2 norma betes mellitus without complication 068207519 E11.9 Hypothyroidism 84126871 E03.9 Cellulitis of lower limb 564918309 L03.119 Nausea 481732187 R11.0 Gastroesop hageal reflux disease without esophagitis 452861501 K21.9 Restless legs 37332036 G 25.81 Primary insomnia 0992703 F51.01 Pruritic rash 06289442 L 28.2 Vitamin D deficiency 347 19803 E55.9 Chronic ob structive pulmonary disease 14174963 J44.9 Disorder of vitamin C 38 7900524 E54 Noncomplia nce with treatment 2836258 Z91.199 Body mass index 40+ - severely obese 198986068 Z68.41 [id number] [place] [phone] 10/31/2023 10:28:26 10/31/2023 10:37:58 Needs assistance with community resources 0653516905 9102 Z76.89 CHW assistance with food [id number] [place] [phone] 02/07/2024 15:24:46 02/07/2024 16:20:04 Type 2 diabetes mellitus without complication 789852016 E11.9 Pain in throat 538302364 R07.0 Essential hypertension 73654008 I10 Hyperlipidemia 25626699 E78.5 Vitamin D deficiency 347 93004 E55.9 Hypothyroidism 34093667 E03.9 Dysthymia 74678736 F34.1 Diabetic p eripheral neuropathy 424995622 E11.40 Diarrhea 23501248 R19.7 Gastroesop hageal reflux disease without esophagitis 058786587 K21.9 Restless legs 43925002 G 25.81 Muscle pain 72310354 M79 .10 Primary insomnia 2051626 F51.01 Disorder of vitamin C 38 2424208 E54 Chronic ob structive pulmonary disease 24937452 J44.9 Body mass index 40+ - severely obese 429362268 Z68.41 [id number] [place] [address] 03/17/2024 14:41:41 03/17/2024 15:47:53 Nausea 366678879 R11.0 Diabetic p eripheral neuropathy 354210180 E11.40 Noncomplia nce with treatment 7687104 Z91.199 Goiter 6973839 E04.9 Hypothyroidism 10438653 E03.9 Body mass index 40+ - severely obese 833330463 Z68.41 [id number] [place] [phone] 03/18/2024 14:56:41 03/18/2024 15:37:20 Pressure injury of buttock 400681049 L89.309 Body mass index 40+ - severely obese 162066332 Z68.41 [id number] Linn Montana [place] [phone] 04/15/2024 14:46:14 04/15/2024 15:50:21 Panic disorder 990177168 F41.0 Diabetic p eripheral neuropathy 078092140 E11.40 Type 2 norma betes mellitus without complication 970134026 E11.9 Body mass index 40+ - severely obese 163382612 Z68.41 [id number] [place] [phone] 05/08/2024 14:04:04 05/08/2024 16:02:33 Type 2 diabetes mellitus without complication 887749290 E11.9 Hyperthyroidism 72613994 E05.90 Panic disorder 584688047 F41.0 Essential hypertension 39910966 I10 Chronic low back pain 27 5038230 M54.50 Dysthymia 82684140 F34.1 Hyperlipidemia 82044949 E78.5 Diabetic p eripheral neuropathy 090017318 E11.40 Diarrhea 82778381 R19.7 Nausea 003861041 R11.0 Gastroesop hageal reflux disease without esophagitis 975364788 K21.9 Restless legs 23577631 G 25.81 Muscle pain 57692149 M79 .10 Primary insomnia 3114146 F51.01 Disorder of vitamin C 38 0611282 E54 Vitamin D deficiency 347 03530 E55.9 Acute sinusitis 57020073 J01.90 Pain in right foot 88662 08158 05831 M79.671 Chronic ulcer of foot 42 7541837 L97.509 Body mass index 40+ - severely obese 782581166 Z68.41 [id number] [place] [address] 06/12/2024 14:50:13 06/12/2024 15:35:30 Diabetic peripheral neuropathy 041175308 E11.40 Pain in right foot 28691 10004 90837 M79.671 Abdominal pain 83547542 R10.9 Obstructiv e sleep apnea syndrome 89852955 G47.33 Lymphedema of bilateral lower limbs 8586561745 7182381 I89.0 Diabetic foot ulcer 3710 52037 E13.621 Body mass index 40+ - severely obese 599408416 Z68.41 [id number] [place] [address] 08/26/2024 11:28:16 08/26/2024 12:07:57 Diabetes mellitus 95203548 E11.9 Chronic ob structive pulmonary disease 84169220 J44.9 Essential hypertension 81790490 I10 Chronic low back pain 27 6492663 M54.50 Dysthymia 43900844 F34.1 Hyperlipidemia 45080599 E78.5 Diabetic p eripheral neuropathy 281205468 E11.40 Type 2 norma betes mellitus without complication 544173658 E11.9 Panic disorder 915253236 F41.0 Diarrhea 86151400 R19.7 Nausea 299666631 R11.0 Gastroesop hageal reflux disease without esophagitis 130826297 K21.9 Restless legs 08109208 G 25.81 Muscle pain 19384605 M79 .10 Pain in right foot 60797 47487 32967 M79.671 Primary insomnia 2992063 F51.01 Disorder of vitamin C 38 7939475 E54 Vitamin D deficiency 347 94122 E55.9 Body mass index 40+ - severely obese 063074167 Z68.41 Amputated toe 033409416 Z89.088 [id number] Linn Montana[address] [address] 12/26/2024 13:31:16 12/26/2024 14:58:54 Type 2 diabetes mellitus without complication 657839869 E11.9 Dyspnea 123298816 R06.00 Chronic ob structive pulmonary disease 90102819 J44.9 Fatigue 84773248 R53.83 HIV screening 386696888 Z11.4 Hyperlipidemia 54142949 E78.5 Vitamin D deficiency 347 00682 E55.9 Vitamin B deficiency 479 46386 E53.9 Essential hypertension 11589758 I10 Dysthymia 83796817 F34.1 Diabetic p eripheral neuropathy 605816578 E11.40 Panic disorder 859716936 F41.0 Diarrhea 29580906 R19.7 Nausea 872915224 R11.0 Gastroesop hageal reflux disease without esophagitis 395839979 K21.9 Restless legs 61683953 G 25.81 Primary insomnia 0098247 F51.01 Disorder of vitamin C 38 1707684 E54 Chronic ulcer of skin 19 644469 L98.499 Body mass index 40+ - severely obese 492034243 Z68.41 Health Concerns Section Related Observation LastModified by Organization Detai ls LastModified Time None Recorded Concern Status LastModified by Organization Details LastModified Time None Recorded Advance Directives Directive N: Payers Insurance Date Sequence Insurance Name Policy Number Policy Gonzales Covered Member ID Gonzales Member ID Guarantor Name 11/19/2023 1 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 Seema Delacruz 12/26/2024 MEDICARE [place] [facility] [employer] [facility] [id number] Seema Delacruz [id number] Seema Delacruz 12/26/2024 3 AETNA - DUAL ELIGIBLE (MEDICARE REPLACEMENT/ ADVANTAGE - PPO) Seema Delacruz [id number] Seema Delacruz 12/29/2024 1 AETNA [facility] (MEDICAID HMO) Seema Delacruz [id number] Seema Delacruz 12/26/2024 1 [place] [facility] [facility] MEDIBLUE PLUS (MEDICARE REPLACEMENT HMO) [id number] Seema Delacruz [id number] Seema Delacruz 12/26/2024 1 AETNA (MEDICARE REPLACEMENT/ ADVANTAGE - HMO) [id number] Seema Delacruz [id number] Seema Delacruz 12/26/2024 3 AETNA (MEDICARE REPLACEMENT/ ADVANTAGE - PPO) [id number] Seema Delacruz [id number] Seema Delacruz 12/26/2024 [place] [facility] Seema Delacruz [id number] Seema Delacruz Notes Date Note Type Note Provider Name and Address Organization Details Recorded Time 04/15/2024 text/html pt here today fo r a refill for gabapentin before her next appt. pt also states that she has gotten into trouble and had to go to prison a few days and she has to go back to prison 2 more weekends and a day. pt states that they put her in [facility] due to her pain pump and she just cant do that . pt states it is a 4x4 cell and she had panic attacks. pt states that she wants to be in a cell with the other inmates but they wont put her there because if they get in a fight she might get her. i told pt if i were her i would want to be in solitaire. pt just had a debridement of her foot, she is obese, diabetic, has a cane and doesnt walk well. pt states oh i can take care of myself .pt wanted me to write a note stating she cannot be in solitaire due to her anxiety. i told pt that i was not going to do that, that i feel she would be safer there and i feel that the people at prison would not accept a note from prison. pt states then would you give me something for sleep or anxiety? i will order pt some vistaril PRN for anxiety. Linn Montana, MANAGER [employer] [address] [facility], [place], [phone], [employer] 04/15/2024 17:40:20 05/08/2024 text/html pt here today fo r medication refills. pt states shes doing well on current medication regime. A1C 8.7 increased from last visit of 8.2. i am going to increase lantus to 20 units q HS and increase ozempic to 2mg. pt voiced understanding. pt states that her foot looks like it is getting worse. pt has 2 open non healing ulcers to right foot, one on the side and the other on the bottom. pt sees [facility]. pt states that they talked about skin graft but insurance wouldnt cover. pt goes back on 05/20. pt asks for a refill of tramadol for a little while. i told pt i would just because of her wounds but not chronically. she would need to speak with her pain doc for that. pt voiced understanding. pt see endo for low TSH and nodule on 06/06. stopped synthroid on 03/31. will redraw today. pt also c/o green drainage and sinus symptoms x2-3 days. on exam, ears WNL, throat red with drainage, sinuses tender, lungs clear. i will order abx. educated pt on new med. pt voiced understanding. Darleen servin, [employer] 05/08/2024 16:04:58 06/12/2024 text/html pt here today requesting a referral to [facility] wound care and lymphedema clinic. pt states that she sees wound care now in [place] only once a month. pt states that she did see dr lopez and then went to [place] and now [facility]. on exam, pt has 3 circular open non healing wounds to right leteral foot. pt has a boot on, which i feel would rub the wounds more and pt states that it does but the doc in [place] told her to wear it. pt states that she changes the dsg daily. pt appears to have lymphedema but is also obese. now that pt has her thyroid better under control and is taking the ozempic for DM she has lost some wt. pt states that she is still having abd pain after every meal and it doesnt matter what she eats. this has been going on for months. i have tried to educate pt on diets that she doesnt follow. i have order an abd US which she didnt go get. pt states that she will go get the US because now she has a ride. abd assessment WNL (other than obese). i will refer to GI for further evaluation. pt has sleep apnea and wears a bi pap at night with 3L oxygen. Linn Montana, MANAGER [employer] [address] [facility], [place], [phone], [facility] [employer] 06/12/2024 18:21:16 08/26/2024 text/html pt here today fo r medication refills and hospital f/u. pt states shes doing well on current medication regime and has no new complaints today. A1C 6.6 down from last visit of 8.7. pt A1C hasnt been in a normal range since coming here. pt has recently been in hospital for an amputation of right 5th digit on 07/02 and had an I&D on 07/14. pt was at [facility] for 16 days and [facility] swing bed for 39 days. pt was NWB however went to podiatry yesterday and had dsg changed and told her she could do some light wt bearing. pt is using a walker today. pt states that dr lopez prescribed 2 abx yesterday. pt states she is to go back weekly for dsg changes. i did not undress foot due to this reason. pt had picture from yesterdays appt with right 5th digit removed, and small open area on lateral foot. Linn Rubén, MANAGER [employer] [address] [facility], [place], [phone], [employer] 08/26/2024 13:05:44 12/26/2024 text/html pt here today fo r medication refills. A1C 10.2 increased from last visit of 6.6. pt states that she has been out of meds for around a month. however has still had her insulins. states that she has moved in with her friend james because her roommate rika doesnt want her to be along while she has the foot wound and is on a walker. pt states that she has not been following a diabetic diet at all and eats whatever she wants. pt has not been exercising. pt has yet another non heeling ulcer to right foot that she is seeing dr lopez weekly for. pt states that she goes sunday for an MRI to see whether she has a fx or osteomylitis. i, again, told pt that if she doesnt get the DM under control she will lose her foot. pt acts like this is new news. i am going to increase the lantus. highly advised pt to follow a strict diabetic diet and exercise. pt also c/o cough with yellow/green sputum for almost 2 weeks. on exam, lungs are decreased and O2 low. i will order cxray and abx. again advised pt to get up anad move more and stop smoking cigs. Linn Montana, MANAGER [employer] [address] [facility], [place], [phone], [employer] 12/26/2024 15:43:32 OBGyn Episode No OBEpisode recorded.
--- NOTE | 2025-03-09 08:45 | CT_ITS ---
FINAL REPORT TECHNIQUE: Pre and postcontrast axial imaging of the right foot was obtained. This study was performed with techniques to keep radiation doses as low as reasonably achievable (ALARA). Individualized dose reduction techniques using automated exposure control or adjustment of mA and/or kV according to the patient's size were employed. CLINICAL HISTORY: Evaluation of OM COMPARISON: 11/24/2024 FINDINGS: The entire fifth digit ray has been resected. There has been amputation of the base of the fourth metatarsal. Mild persistent irregularity is seen of the resected margin of the fourth metatarsal. Osteomyelitis not entirely excluded. Previously questioned fracture through the base of the third metatarsal is less evident than on prior exam but best seen on images 49 and 50 of series 6. There is a large soft tissue ulcer deep to the tarsal cuboid. There is a tiny intra-articular loose body within the lateral aspect of the mortise measuring 2 mm seen on image 70 of series 604. There is also an intra-articular loose body at the anterior aspect of the mortise measuring up to 6 mm seen on image 34 of series 200. There is an os trigonum measuring 8 mm. IMPRESSION: 1. Healing fracture through the base of the third metatarsal. 2. Persistent, mild cortical irregularity at the resected margin of the fourth metatarsal. Cannot exclude underlying osteomyelitis. 3. Large soft tissue ulceration at the plantar aspect of the tarsal cuboid. Reviewed, Interpreted and Dictated by Agustin Frazier MD Transcribed by Delicia Snow Authenticated and [facility]
[2025-03-09] MEDS: IOPAMIDOL-370 (76%);100ML BOTTLE 75 ML IV (08:53)
[2025-03-09] MEDS: SODIUM CHLORIDE 0.9% 10ML SYR (RAD ONLY) 10 ML IV (08:53)
--- OUTSIDE RECORDS SUMMARY | 2025-04-21 20:00 | XMS_ITS | Clinical Summary ---
Author Organization Unknown Care Team Providers Care Epoxy Specialist Name Role Phone LEONID DPM, ORA Unavailable Unavailable STEPHY RN, ALINE Unavailable Unavailable JULIA ARZATEN, ASHELY Unavailable Unavaillisa BATEMAN OT, MITZI Unavailable Unavailable EWA RN, JOHN Unavailable Unavailable CARINA TUCKER/TEMO, JAYLAN Unavailable Un available Payers Payer Name Policy Type Policy Number Effective Date Expira tion Date [employer].AUTH [id number] [facility].MA.C.AUTH [id number] ADMISSIONS.CODEREQUEST.[employer] US.AUTH [id number] Problems Condition Name Condition Details Condition Category [...] 00 DEPRESSION, UNSPECIFIED Active 10-01 00:00: 00 DETENTION (CURRENT) USE OF INSULIN Active 10-01 00:00: [...] 40 mg tablet 2023-10 00:00: 00 Yes [id number] DEPRESSION 1 tablet DAILY 1 tablet DAILY (route: oral) Med Classific ation: Central Nervous System Agents Coreg 25 mg tablet 2023-10 00:00: 00 Yes [id number] CARDIAC 1 tablet 2 TIMES DAILY 1 tablet 2 TIMES DAILY (route: oral) Med Classific ation: Cardiovas cular Therapy Agents duloxetine 30 mg capsule,del ayed release 2023-10 00:00: 00 Yes [id number] DEPRESSION 1 capsule DAILY 1 capsule DAILY (route: oral) Med Classific ation: Central Nervous System Agents fenofibrate 54 mg tablet 2023-10 00:00: 00 Yes [id number] CARDIAC 1 tablet DAILY 1 tablet DAILY (route: oral) Med Classific ation: Cardiovas cular Therapy Agents furosemide 40 mg tablet 2023-10 00:00: 00 Yes [id number] CARDIAC 1 tablet DAILY 1 tablet DAILY (route: oral) Med Classific ation: Cardiovas cular Therapy Agents gabapentin 800 mg tablet 2023-10 00:00: 00 Yes [id number] PAIN 1 tablet 3 TIMES DAILY 1 tablet 3 TIMES DAILY (route: oral) Med Classific ation: Central Nervous System Agents hydroxyzine HCl 25 mg tablet 2023-10 00:00: 00 Yes [id number] ANXIETY 1 tablet 3 TIMES DAILY 1 tablet 3 TIMES DAILY (route: oral) Med Classific ation: Central Nervous System Agents insulin glargine (U-300) conc. 300 unit/mL (3 mL) subcutaneou s pen 2023-10 00:00: 00 Yes [id number] DM 10 unit BEDTIME 10 unit BEDTIME (route: subcutaneo us) Med Classific ation: Endocrine isosorbide dinitrate 30 mg tablet 2023-10 00:00: 00 Yes [id number] CARDIAC 1 tablet 2 TIMES DAILY 1 tablet 2 TIMES DAILY (route: oral) Med Classific ation: Cardiovas cular Therapy Agents lisinopril 2.5 mg tablet 2023-10 00:00: 00 Yes [id number] HTN 1 tablet DAILY 1 tablet DAILY (route: oral) Med Classific ation: Cardiovas cular Therapy Agents methimazole 5 mg tablet 2023-10 00:00: 00 Yes [id number] THYROID 1 tablet DAILY 1 tablet DAILY (route: oral) Med Classific ation: Endocrine Protonix 40 mg tablet,jerel yed release 2023-10 00:00: 00 Yes [id number] GERD 1 tablet DAILY 1 tablet DAILY (route: oral) Med Classific ation: Gastroint estinal Therapy Agents ropinirole 3 mg tablet 2023-10 00:00: 00 Yes [id number] RLS 1 tablet BEDTIME 1 tablet BEDTIME (route: oral) Med Classific ation: Central Nervous System Agents tizanidine 4 mg tablet 2023-10 00:00: 00 Yes [id number] MUSCLE RELAXER 1 tablet 2 TIMES DAILY 1 tablet 2 TIMES DAILY (route: oral) Med Classific ation: Locomotor System trazodone 150 mg tablet 2023-10 00:00: 00 Yes [id number] SLEEP 1 tablet BEDTIME 1 tablet BEDTIME (route: oral) Med Classific ation: Central Nervous System Agents Vital Signs Vital Name Observation Time Observation Value Commen ts Temperature 2025-03-05 13:15:00.000 97.3 [degF] Pulse 2025-03-05 13:15:00.000 72 /min O2 Saturation (%) 2025-03-05 13:15:00.000 97 % Respirations 2025-03-05 13:15:00.000 18 /min Systolic Blood Pressure 2025-03-05 13:15:00.000 132 mm [Hg] Diastolic Blood Pressure 2025-03-05 13:15:00.000 86 mm [Hg] Plan of Treatment Planned Activity Planned Date Details Comments Future Scheduled Test RN TO OBSE RVE, ASSESS, EVALUATE, AND DEVELOP AN INDIVIDUALIZED PLAN OF CARE. AGENCY MAY ACCEPT ORDERS FROM CONSULTING PHYSICIANS YUSUF FLOWERS. RN TO OBSERVE AND ASSESS, RESPIRATORY THERAPY INSTRUCTOR/HAMMER DRIVER TO OBSERVE FOR RISK FOR FALLS AND INSTRUCT IN FALL PREVENTION, HOME SAFETY, MEDICATION MANAGEMENT, INFECTION PREVENTION, AND NUTRITION MANAGEMENT. RN/RESPIRATORY THERAPY INSTRUCTOR/HAMMER DRIVER NURSE MAY PERFORM O2 SATURATION LEVEL ON ADMISSION AND PRN FOR DYSPNEA FOR RN TO ASSESS/RESPIRATORY THERAPY INSTRUCTOR TO OBSERVE PATIENT, WITH NOTIFICATION TO THE PHYSICIAN IF SATURATION IS 90% IN THE ABSENCE OF MORE SPECIFIC PARAMETERS FROM THE PHYSICIAN. AGENCY MAY PERFORM A RESUMPTION OF CARE VISIT FOLLOWING ANY HOSPITAL ADMISSION. RN/RESPIRATORY THERAPY INSTRUCTOR/HAMMER DRIVER TO MONITOR CO-MORBID CONDITIONS LISTED ON THE PLAN OF CARE AND ANY NEW CONDITIONS THAT PRESENT THEMSELVES DURING THIS EPISODE TO IDENTIFY CHANGES AND INTERVENE TO MINIMIZE COMPLICATIONS. [code = RN TO OBSERVE, ASSESS, EVALUATE, AND DEVELOP AN INDIVIDUALIZED PLAN OF CARE. AGENCY MAY ACCEPT ORDERS FROM CONSULTING PHYSICIANS YUSUF FLOWERS. RN TO OBSERVE AND ASSESS, RESPIRATORY THERAPY INSTRUCTOR/HAMMER DRIVER TO OBSERVE FOR RISK FOR FALLS AND INSTRUCT IN FALL PREVENTION, HOME SAFETY, MEDICATION MANAGEMENT, INFECTION PREVENTION, AND NUTRITION MANAGEMENT. RN/RESPIRATORY THERAPY INSTRUCTOR/HAMMER DRIVER NURSE MAY PERFORM O2 SATURATION LEVEL ON ADMISSION AND PRN FOR DYSPNEA FOR RN TO ASSESS/RESPIRATORY THERAPY INSTRUCTOR TO OBSERVE PATIENT, WITH NOTIFICATION TO THE PHYSICIAN IF SATURATION IS 90% IN THE ABSENCE OF MORE SPECIFIC PARAMETERS FROM THE PHYSICIAN. AGENCY MAY PERFORM A RESUMPTION OF CARE VISIT FOLLOWING ANY HOSPITAL ADMISSION. RN/RESPIRATORY THERAPY INSTRUCTOR/HAMMER DRIVER TO MONITOR CO-MORBID CONDITIONS LISTED ON THE PLAN OF CARE AND ANY NEW CONDITIONS THAT PRESENT THEMSELVES DURING THIS EPISODE TO IDENTIFY CHANGES AND INTERVENE TO MINIMIZE COMPLICATIONS.] Future Scheduled Test RISK FOR H OSPITALIZATION; RN TO ASSESS/TEACH, HAMMER DRIVER/RESPIRATORY THERAPY INSTRUCTOR TO OBSERVE/TEACH PATIENT/CAREGIVER ON RISK FOR HOSPITALIZATION/EMERGENCY ROOM VISITS, TEACH SIGNS AND SYMPTOMS THAT PUT PATIENT AT RISK, WHEN TO NOTIFY NURSE/PHYSICIAN OF COMPLICATIONS/DECLINE, AND WHEN TO CALL 911. [code = RISK FOR HOSPITALIZATION; RN TO ASSESS/TEACH, HAMMER DRIVER/RESPIRATORY THERAPY INSTRUCTOR TO OBSERVE/TEACH PATIENT/CAREGIVER ON RISK FOR HOSPITALIZATION/EMERGENCY ROOM VISITS, TEACH SIGNS AND SYMPTOMS THAT PUT PATIENT AT RISK, WHEN TO NOTIFY NURSE/PHYSICIAN OF COMPLICATIONS/DECLINE, AND WHEN TO CALL 911.] Future Scheduled Test CARDIOVASC ULAR SYSTEM; RN TO ASSESS/TEACH, RESPIRATORY THERAPY INSTRUCTOR/HAMMER DRIVER TO OBSERVE/TEACH RELATED TO ALTERED CARDIOVASCULAR STATUS TO MINIMIZE COMPLICATIONS AND REDUCE HOSPITALIZATION. [code = CARDIOVASCULAR SYSTEM; RN TO ASSESS/TEACH, RESPIRATORY THERAPY INSTRUCTOR/HAMMER DRIVER TO OBSERVE/TEACH RELATED TO ALTERED CARDIOVASCULAR STATUS TO MINIMIZE COMPLICATIONS AND REDUCE HOSPITALIZATION.] Future Scheduled Test HYPERTENSI ON MANAGEMENT; RN TO ASSESS AND TEACH, RESPIRATORY THERAPY INSTRUCTOR/HAMMER DRIVER TO OBSERVE AND TEACH WARNING SIGNS AND SYMPTOMS TO AVOID HOSPITALIZATION. [code = HYPERTENSION MANAGEMENT; RN TO ASSESS AND TEACH, RESPIRATORY THERAPY INSTRUCTOR/HAMMER DRIVER TO OBSERVE AND TEACH WARNING SIGNS AND SYMPTOMS TO AVOID HOSPITALIZATION.] Future Scheduled Test RESPIRATOR Y SYSTEM MANAGEMENT; RN TO ASSESS AND TEACH, RESPIRATORY THERAPY INSTRUCTOR/HAMMER DRIVER TO OBSERVE AND TEACH RELATED TO ALTERED RESPIRATORY STATUS TO MINIMIZE COMPLICATIONS AND REDUCE HOSPITALIZATION. [code = RESPIRATORY SYSTEM MANAGEMENT; RN TO ASSESS AND TEACH, RESPIRATORY THERAPY INSTRUCTOR/HAMMER DRIVER TO OBSERVE AND TEACH RELATED TO ALTERED RESPIRATORY STATUS TO MINIMIZE COMPLICATIONS AND REDUCE HOSPITALIZATION.] Future Scheduled Test COPD MANAG EMENT; RN TO ASSESS AND TEACH, RESPIRATORY THERAPY INSTRUCTOR/HAMMER DRIVER TO OBSERVE AND TEACH SIGNS/SYMPTOMS OF COPD EXACERBATION AND PROVIDE EARLY INTERVENTIONS TO MINIMIZE RISK OF HOSPITALIZATION. RN/RESPIRATORY THERAPY INSTRUCTOR/HAMMER DRIVER TO INSTRUCT ON SELF-CARE MANAGEMENT INCLUDING BREATHING TECHNIQUES, AIRWAY CLEARANCE, AND PROPER USE OF COPD MEDICATIONS. RN TO ASSESS AND TEACH, RESPIRATORY THERAPY INSTRUCTOR/HAMMER DRIVER TO OBSERVE AND TEACH PATIENT/CAREGIVER ABILITY TO MONITOR AND RECORD VITAL SIGNS INCLUDING PULSE OXIMETRY AND BLOOD PRESSURE. PULSE OXIMETER AND BP MONITOR TO BE PROVIDED IF NEEDED [code = COPD MANAGEMENT; RN TO ASSESS AND TEACH, RESPIRATORY THERAPY INSTRUCTOR/HAMMER DRIVER TO OBSERVE AND TEACH SIGNS/SYMPTOMS OF COPD EXACERBATION AND PROVIDE EARLY INTERVENTIONS TO MINIMIZE RISK OF HOSPITALIZATION. RN/RESPIRATORY THERAPY INSTRUCTOR/HAMMER DRIVER TO INSTRUCT ON SELF-CARE MANAGEMENT INCLUDING BREATHING TECHNIQUES, AIRWAY CLEARANCE, AND PROPER USE OF COPD MEDICATIONS. RN TO ASSESS AND TEACH, RESPIRATORY THERAPY INSTRUCTOR/HAMMER DRIVER TO OBSERVE AND TEACH PATIENT/CAREGIVER ABILITY TO MONITOR AND RECORD VITAL SIGNS INCLUDING PULSE OXIMETRY AND BLOOD PRESSURE. PULSE OXIMETER AND BP MONITOR TO BE PROVIDED IF NEEDED ] Future Scheduled Test RN/RESPIRATORY THERAPY INSTRUCTOR/HAMMER DRIVER TO PERFORM/TEACH DIABETIC ULCER - NEUROPATHIC CARE TO PLANTAR RIGHT FOOT: CLEANSE WITH BETADINE SWABS, APPLY PURACOL, MAY APPLY SKIN BARRIER TO PERIWOUND AREA PRN TO PREVENT SKIN MACERATION AND PROTECT PERIWOUND COVER WITH KERLIX SECURE WITH REILLY WRAP. CHANGE DRESSING EVERY DAY AND PRN FOR DISLODGED DRESSING. CAREGIVER TO CHANGE BETWEEN SN VISITS [code = RN/RESPIRATORY THERAPY INSTRUCTOR/HAMMER DRIVER TO PERFORM/TEACH DIABETIC ULCER - NEUROPATHIC CARE [...] MANAG EMENT; RN TO ASSESS AND TEACH, HAMMER DRIVER/RESPIRATORY THERAPY INSTRUCTOR TO OBSERVE AND TEACH AND PROVIDE EDUCATION ON PAIN MANAGEMENT TECHNIQUES. [code = PAIN MANAGEMENT; RN TO ASSESS AND TEACH, HAMMER DRIVER/RESPIRATORY THERAPY INSTRUCTOR TO OBSERVE AND TEACH AND PROVIDE EDUCATION ON PAIN MANAGEMENT TECHNIQUES.] Future Scheduled Test DIABETES M ANAGEMENT; RN TO ASSESS AND TEACH, HAMMER DRIVER/RESPIRATORY THERAPY INSTRUCTOR TO OBSERVE AND TEACH INSTRUCTIONS OF DIABETIC CARE TO INCLUDE: DIET LOW CARB, SKIN CARE, SIGNS AND SYMPTOMS OF HYPO/HYPERGLYCEMIA, PROPER ADMINISTRATION OF DIABETIC MEDICATION. RN/HAMMER DRIVER/RESPIRATORY THERAPY INSTRUCTOR TO INSTRUCT ON DIABETIC FOOT CARE AND MONITOR FOR SKIN LESIONS ON LOWER EXTREMITIES. BLOOD GLUCOSE TESTING DAILY FREQ. RN TO ASSESS AND TEACH, HAMMER DRIVER/RESPIRATORY THERAPY INSTRUCTOR TO OBSERVE AND TEACH PATIENT/CAREGIVER ABILITY TO PERFORM AND RECORD BLOOD GLUCOSE TESTING ORDERED AND TO REPORT ABNORMAL FINDINGS TO PHYSICIAN. RN/HAMMER DRIVER/RESPIRATORY THERAPY INSTRUCTOR MAY PERFORM BLOOD GLUCOSE TEST NEEDED. RN/HAMMER DRIVER/RESPIRATORY THERAPY INSTRUCTOR TO REPORT TO PHYSICIAN BLOOD GLUCOSE READINGS GREATER THAN 400 OR LESS THAN 60 RN/HAMMER DRIVER/RESPIRATORY THERAPY INSTRUCTOR TO INSTRUCT PATIENT ON IMPORTANCE OF HGBA1C MONITORING, KIDNEY FUNCTION TEST, EYE AND FOOT EXAMS. [code = DIABETES MANAGEMENT; RN TO ASSESS AND TEACH, HAMMER DRIVER/RESPIRATORY THERAPY INSTRUCTOR TO OBSERVE AND TEACH INSTRUCTIONS OF DIABETIC CARE TO INCLUDE: DIET LOW CARB, SKIN CARE, SIGNS AND SYMPTOMS OF HYPO/HYPERGLYCEMIA, PROPER ADMINISTRATION OF DIABETIC MEDICATION. RN/HAMMER DRIVER/RESPIRATORY THERAPY INSTRUCTOR TO INSTRUCT ON DIABETIC FOOT CARE AND MONITOR FOR SKIN LESIONS ON LOWER EXTREMITIES. BLOOD GLUCOSE TESTING DAILY FREQ. RN TO ASSESS AND TEACH, HAMMER DRIVER/RESPIRATORY THERAPY INSTRUCTOR TO OBSERVE AND TEACH PATIENT/CAREGIVER ABILITY TO PERFORM AND RECORD BLOOD GLUCOSE TESTING ORDERED AND TO REPORT ABNORMAL FINDINGS TO PHYSICIAN. RN/HAMMER DRIVER/RESPIRATORY THERAPY INSTRUCTOR MAY PERFORM BLOOD GLUCOSE TEST NEEDED. RN/HAMMER DRIVER/RESPIRATORY THERAPY INSTRUCTOR TO REPORT TO PHYSICIAN BLOOD GLUCOSE READINGS GREATER THAN 400 OR LESS THAN 60 RN/HAMMER DRIVER/RESPIRATORY THERAPY INSTRUCTOR TO INSTRUCT PATIENT ON IMPORTANCE OF HGBA1C MONITORING, KIDNEY FUNCTION TEST, EYE AND FOOT EXAMS.] Future Scheduled Test FALL REDUC TION MANAGEMENT; RN TO ASSESS AND OBSERVE, RESPIRATORY THERAPY INSTRUCTOR/HAMMER DRIVER TO OBSERVE FALL RISK FACTORS AND EDUCATE PATIENT/CAREGIVER ON STRATEGIES TO MINIMIZE THE RISK OF FALLING. [code = FALL REDUCTION MANAGEMENT; RN TO ASSESS AND OBSERVE, RESPIRATORY THERAPY INSTRUCTOR/HAMMER DRIVER TO OBSERVE FALL RISK FACTORS AND EDUCATE PATIENT/CAREGIVER ON STRATEGIES TO MINIMIZE THE RISK OF FALLING.] Future Scheduled Test PRN VISITS ; NUMBER OF RN/RESPIRATORY THERAPY INSTRUCTOR/HAMMER DRIVER VISITS: 2 RN/RESPIRATORY THERAPY INSTRUCTOR/HAMMER DRIVER TO PERFORM: WOUND CARE FOR THE FOLLOWING REASONS: WOUND INFECTION, ODOR, INCREASED DRAINAGE [code = PRN VISITS; NUMBER OF RN/RESPIRATORY THERAPY INSTRUCTOR/HAMMER DRIVER VISITS: 2 RN/RESPIRATORY THERAPY INSTRUCTOR/HAMMER DRIVER TO PERFORM: WOUND CARE FOR THE FOLLOWING [...] End Date/Time Encounter Type Admission Type Attending [facility] Facility Care Department Encounter ID Discharge Date Discharge Status Discharge Condition Discharge Reason Percent Goals Met 2025-02-22 00:00:00 2025-04-22 00:00:00 Outpatient RECERTIFIC ATION [facility] [id number]
--- OUTSIDE RECORDS SUMMARY | 2025-04-21 20:00 | XMS_ITS | Clinical Summary ---
Author Organization Unknown Care Team Providers Care Hot [place] Man Name Role Phone LEONID DPM, ORA Unavailable Unavailable STEPHY RN, ALINE Unavailable Unavailable JULIA ARZATEN, ASHELY Unavailable Unavaillisa BATEMAN OT, MITZI Unavailable Unavailable EWA RN, JOHN Unavailable Unavailable CARINA TUCKER/TEMO, JAYLAN Unavailable Un available Payers Payer Name Policy Type Policy Number Effective Date Expira tion Date [employer].AUTH [id number] [employer].[employer].AUTH [id number] ADMISSIONS.CODERE[employer] US.AUTH [id number] Problems Condition Name Condition Details Condition Category [...] 00 DEPRESSION, UNSPECIFIED Active 10-01 00:00: 00 [facility]PC (CURRENT) USE OF INSULIN Active 10-01 00:00: [...] 40 mg tablet 2023-10 00:00: 00 Yes [id number] DEPRESSION 1 tablet DAILY 1 tablet DAILY (route: oral) Med Classific ation: Central Nervous System Agents Coreg 25 mg tablet 2023-10 00:00: 00 Yes [id number] CARDIAC 1 tablet 2 TIMES DAILY 1 tablet 2 TIMES DAILY (route: oral) Med Classific ation: Cardiovas cular Therapy Agents duloxetine 30 mg capsule,del ayed release 2023-10 00:00: 00 Yes [id number] DEPRESSION 1 capsule DAILY 1 capsule DAILY (route: oral) Med Classific ation: Central Nervous System Agents fenofibrate 54 mg tablet 2023-10 00:00: 00 Yes [id number] CARDIAC 1 tablet DAILY 1 tablet DAILY (route: oral) Med Classific ation: Cardiovas cular Therapy Agents furosemide 40 mg tablet 2023-10 00:00: 00 Yes [id number] CARDIAC 1 tablet DAILY 1 tablet DAILY (route: oral) Med Classific ation: Cardiovas cular Therapy Agents gabapentin 800 mg tablet 2023-10 00:00: 00 Yes [id number] PAIN 1 tablet 3 TIMES DAILY 1 tablet 3 TIMES DAILY (route: oral) Med Classific ation: Central Nervous System Agents hydroxyzine HCl 25 mg tablet 2023-10 00:00: 00 Yes [id number] ANXIETY 1 tablet 3 TIMES DAILY 1 tablet 3 TIMES DAILY (route: oral) Med Classific ation: Central Nervous System Agents insulin glargine (U-300) conc. 300 unit/mL (3 mL) subcutaneou s pen 2023-10 00:00: 00 Yes [id number] DM 10 unit BEDTIME 10 unit BEDTIME (route: subcutaneo us) Med Classific ation: Endocrine isosorbide dinitrate 30 mg tablet 2023-10 00:00: 00 Yes [id number] CARDIAC 1 tablet 2 TIMES DAILY 1 tablet 2 TIMES DAILY (route: oral) Med Classific ation: Cardiovas cular Therapy Agents lisinopril 2.5 mg tablet 2023-10 00:00: 00 Yes [id number] HTN 1 tablet DAILY 1 tablet DAILY (route: oral) Med Classific ation: Cardiovas cular Therapy Agents methimazole 5 mg tablet 2023-10 00:00: 00 Yes [id number] THYROID 1 tablet DAILY 1 tablet DAILY (route: oral) Med Classific ation: Endocrine Protonix 40 mg tablet,jerel yed release 2023-10 00:00: 00 Yes [id number] GERD 1 tablet DAILY 1 tablet DAILY (route: oral) Med Classific ation: Gastroint estinal Therapy Agents ropinirole 3 mg tablet 2023-10 00:00: 00 Yes [id number] RLS 1 tablet BEDTIME 1 tablet BEDTIME (route: oral) Med Classific ation: Central Nervous System Agents tizanidine 4 mg tablet 2023-10 00:00: 00 Yes [id number] MUSCLE RELAXER 1 tablet 2 TIMES DAILY 1 tablet 2 TIMES DAILY (route: oral) Med Classific ation: Locomotor System trazodone 150 mg tablet 2023-10 00:00: 00 Yes [id number] SLEEP 1 tablet BEDTIME 1 tablet BEDTIME [...] YUSUF FLOWERS. RN TO OBSERVE AND ASSESS, TECHNOLOGY SUPPORT ANALYST/REVIEW CONSULTANT TO OBSERVE FOR RISK FOR FALLS AND INSTRUCT IN FALL PREVENTION, HOME SAFETY, MEDICATION MANAGEMENT, INFECTION PREVENTION, AND NUTRITION MANAGEMENT. RN/TECHNOLOGY SUPPORT ANALYST/REVIEW CONSULTANT NURSE MAY PERFORM O2 SATURATION LEVEL ON ADMISSION AND PRN FOR DYSPNEA FOR RN TO ASSESS/TECHNOLOGY SUPPORT ANALYST TO OBSERVE PATIENT, WITH NOTIFICATION TO THE PHYSICIAN IF SATURATION IS 90% IN THE ABSENCE OF MORE SPECIFIC PARAMETERS FROM THE PHYSICIAN. AGENCY MAY PERFORM A RESUMPTION OF CARE VISIT FOLLOWING ANY HOSPITAL ADMISSION. RN/TECHNOLOGY SUPPORT ANALYST/REVIEW CONSULTANT TO MONITOR CO-MORBID CONDITIONS LISTED ON THE PLAN OF CARE AND ANY NEW CONDITIONS THAT PRESENT THEMSELVES DURING THIS EPISODE TO IDENTIFY CHANGES AND INTERVENE TO MINIMIZE COMPLICATIONS. [code = RN TO OBSERVE, ASSESS, EVALUATE, AND DEVELOP AN INDIVIDUALIZED PLAN OF CARE. AGENCY MAY ACCEPT ORDERS FROM CONSULTING PHYSICIANS YUSUF FLOWERS. RN TO OBSERVE AND ASSESS, TECHNOLOGY SUPPORT ANALYST/REVIEW CONSULTANT TO OBSERVE FOR RISK FOR FALLS AND INSTRUCT IN FALL PREVENTION, HOME SAFETY, MEDICATION MANAGEMENT, INFECTION PREVENTION, AND NUTRITION MANAGEMENT. RN/TECHNOLOGY SUPPORT ANALYST/REVIEW CONSULTANT NURSE MAY PERFORM O2 SATURATION LEVEL ON ADMISSION AND PRN FOR DYSPNEA FOR RN TO ASSESS/TECHNOLOGY SUPPORT ANALYST TO OBSERVE PATIENT, WITH NOTIFICATION TO THE PHYSICIAN IF SATURATION IS 90% IN THE ABSENCE OF MORE SPECIFIC PARAMETERS FROM THE PHYSICIAN. AGENCY MAY PERFORM A RESUMPTION OF CARE VISIT FOLLOWING ANY HOSPITAL ADMISSION. RN/TECHNOLOGY SUPPORT ANALYST/REVIEW CONSULTANT TO MONITOR CO-MORBID CONDITIONS LISTED ON THE PLAN OF CARE AND ANY NEW CONDITIONS THAT PRESENT THEMSELVES DURING THIS EPISODE TO IDENTIFY CHANGES AND INTERVENE TO MINIMIZE COMPLICATIONS.] Future Scheduled Test RISK FOR H OSPITALIZATION; RN TO ASSESS/TEACH, REVIEW CONSULTANT/TECHNOLOGY SUPPORT ANALYST TO OBSERVE/TEACH PATIENT/CAREGIVER ON RISK FOR HOSPITALIZATION/EMERGENCY ROOM VISITS, TEACH SIGNS AND SYMPTOMS THAT PUT PATIENT AT RISK, WHEN TO NOTIFY NURSE/PHYSICIAN OF COMPLICATIONS/DECLINE, AND WHEN TO CALL 911. [code = RISK FOR HOSPITALIZATION; RN TO ASSESS/TEACH, REVIEW CONSULTANT/TECHNOLOGY SUPPORT ANALYST TO OBSERVE/TEACH PATIENT/CAREGIVER ON RISK FOR HOSPITALIZATION/EMERGENCY ROOM VISITS, TEACH SIGNS AND SYMPTOMS THAT PUT PATIENT AT RISK, WHEN TO NOTIFY NURSE/PHYSICIAN OF COMPLICATIONS/DECLINE, AND WHEN TO CALL 911.] Future Scheduled Test CARDIOVASC ULAR SYSTEM; RN TO ASSESS/TEACH, TECHNOLOGY SUPPORT ANALYST/REVIEW CONSULTANT TO OBSERVE/TEACH RELATED TO ALTERED CARDIOVASCULAR STATUS TO MINIMIZE COMPLICATIONS AND REDUCE HOSPITALIZATION. [code = CARDIOVASCULAR SYSTEM; RN TO ASSESS/TEACH, TECHNOLOGY SUPPORT ANALYST/REVIEW CONSULTANT TO OBSERVE/TEACH RELATED TO ALTERED CARDIOVASCULAR STATUS TO MINIMIZE COMPLICATIONS AND REDUCE HOSPITALIZATION.] Future Scheduled Test HYPERTENSI ON MANAGEMENT; RN TO ASSESS AND TEACH, TECHNOLOGY SUPPORT ANALYST/REVIEW CONSULTANT TO OBSERVE AND TEACH WARNING SIGNS AND SYMPTOMS TO AVOID HOSPITALIZATION. [code = HYPERTENSION MANAGEMENT; RN TO ASSESS AND TEACH, TECHNOLOGY SUPPORT ANALYST/REVIEW CONSULTANT TO OBSERVE AND TEACH WARNING SIGNS AND SYMPTOMS TO AVOID HOSPITALIZATION.] Future Scheduled Test RESPIRATOR Y SYSTEM MANAGEMENT; RN TO ASSESS AND TEACH, TECHNOLOGY SUPPORT ANALYST/REVIEW CONSULTANT TO OBSERVE AND TEACH RELATED TO ALTERED RESPIRATORY STATUS TO MINIMIZE COMPLICATIONS AND REDUCE HOSPITALIZATION. [code = RESPIRATORY SYSTEM MANAGEMENT; RN TO ASSESS AND TEACH, TECHNOLOGY SUPPORT ANALYST/REVIEW CONSULTANT TO OBSERVE AND TEACH RELATED TO ALTERED RESPIRATORY STATUS TO MINIMIZE COMPLICATIONS AND REDUCE HOSPITALIZATION.] Future Scheduled Test COPD MANAG EMENT; RN TO ASSESS AND TEACH, TECHNOLOGY SUPPORT ANALYST/REVIEW CONSULTANT TO OBSERVE AND TEACH SIGNS/SYMPTOMS OF COPD EXACERBATION AND PROVIDE EARLY INTERVENTIONS TO MINIMIZE RISK OF HOSPITALIZATION. RN/TECHNOLOGY SUPPORT ANALYST/REVIEW CONSULTANT TO INSTRUCT ON SELF-CARE MANAGEMENT INCLUDING BREATHING TECHNIQUES, AIRWAY CLEARANCE, AND PROPER USE OF COPD MEDICATIONS. RN TO ASSESS AND TEACH, TECHNOLOGY SUPPORT ANALYST/REVIEW CONSULTANT TO OBSERVE AND TEACH PATIENT/CAREGIVER ABILITY TO MONITOR AND RECORD VITAL SIGNS INCLUDING PULSE OXIMETRY AND BLOOD PRESSURE. PULSE OXIMETER AND BP MONITOR TO BE PROVIDED IF NEEDED [code = COPD MANAGEMENT; RN TO ASSESS AND TEACH, TECHNOLOGY SUPPORT ANALYST/REVIEW CONSULTANT TO OBSERVE AND TEACH SIGNS/SYMPTOMS OF COPD EXACERBATION AND PROVIDE EARLY INTERVENTIONS TO MINIMIZE RISK OF HOSPITALIZATION. RN/TECHNOLOGY SUPPORT ANALYST/REVIEW CONSULTANT TO INSTRUCT ON SELF-CARE MANAGEMENT INCLUDING BREATHING TECHNIQUES, AIRWAY CLEARANCE, AND PROPER USE OF COPD MEDICATIONS. RN TO ASSESS AND TEACH, TECHNOLOGY SUPPORT ANALYST/REVIEW CONSULTANT TO OBSERVE AND TEACH PATIENT/CAREGIVER ABILITY TO MONITOR AND RECORD VITAL SIGNS INCLUDING PULSE OXIMETRY AND BLOOD PRESSURE. PULSE OXIMETER AND BP MONITOR TO BE PROVIDED IF NEEDED ] Future Scheduled Test RN/TECHNOLOGY SUPPORT ANALYST/REVIEW CONSULTANT TO PERFORM/TEACH DIABETIC ULCER - NEUROPATHIC CARE TO PLANTAR RIGHT FOOT: CLEANSE WITH BETADINE SWABS, APPLY PURACOL, MAY APPLY SKIN BARRIER TO PERIWOUND AREA PRN TO PREVENT SKIN MACERATION AND PROTECT PERIWOUND COVER WITH KERLIX SECURE WITH REILLY WRAP. CHANGE DRESSING EVERY DAY AND PRN FOR DISLODGED DRESSING. CAREGIVER TO CHANGE BETWEEN SN VISITS [code = RN/TECHNOLOGY SUPPORT ANALYST/REVIEW CONSULTANT TO PERFORM/TEACH DIABETIC ULCER - NEUROPATHIC CARE [...] MANAG EMENT; RN TO ASSESS AND TEACH, REVIEW CONSULTANT/TECHNOLOGY SUPPORT ANALYST TO OBSERVE AND TEACH AND PROVIDE EDUCATION ON PAIN MANAGEMENT TECHNIQUES. [code = PAIN MANAGEMENT; RN TO ASSESS AND TEACH, REVIEW CONSULTANT/TECHNOLOGY SUPPORT ANALYST TO OBSERVE AND TEACH AND PROVIDE EDUCATION ON PAIN MANAGEMENT TECHNIQUES.] Future Scheduled Test DIABETES M ANAGEMENT; RN TO ASSESS AND TEACH, REVIEW CONSULTANT/TECHNOLOGY SUPPORT ANALYST TO OBSERVE AND TEACH INSTRUCTIONS OF DIABETIC CARE TO INCLUDE: DIET LOW CARB, SKIN CARE, SIGNS AND SYMPTOMS OF HYPO/HYPERGLYCEMIA, PROPER ADMINISTRATION OF DIABETIC MEDICATION. RN/REVIEW CONSULTANT/TECHNOLOGY SUPPORT ANALYST TO INSTRUCT ON DIABETIC FOOT CARE AND MONITOR FOR SKIN LESIONS ON LOWER EXTREMITIES. BLOOD GLUCOSE TESTING DAILY FREQ. RN TO ASSESS AND TEACH, REVIEW CONSULTANT/TECHNOLOGY SUPPORT ANALYST TO OBSERVE AND TEACH PATIENT/CAREGIVER ABILITY TO PERFORM AND RECORD BLOOD GLUCOSE TESTING ORDERED AND TO REPORT ABNORMAL FINDINGS TO PHYSICIAN. RN/REVIEW CONSULTANT/TECHNOLOGY SUPPORT ANALYST MAY PERFORM BLOOD GLUCOSE TEST NEEDED. RN/REVIEW CONSULTANT/TECHNOLOGY SUPPORT ANALYST TO REPORT TO PHYSICIAN BLOOD GLUCOSE READINGS GREATER THAN 400 OR LESS THAN 60 RN/REVIEW CONSULTANT/TECHNOLOGY SUPPORT ANALYST TO INSTRUCT PATIENT ON IMPORTANCE OF HGBA1C MONITORING, KIDNEY FUNCTION TEST, EYE AND FOOT EXAMS. [code = DIABETES MANAGEMENT; RN TO ASSESS AND TEACH, REVIEW CONSULTANT/TECHNOLOGY SUPPORT ANALYST TO OBSERVE AND TEACH INSTRUCTIONS OF DIABETIC CARE TO INCLUDE: DIET LOW CARB, SKIN CARE, SIGNS AND SYMPTOMS OF HYPO/HYPERGLYCEMIA, PROPER ADMINISTRATION OF DIABETIC MEDICATION. RN/REVIEW CONSULTANT/TECHNOLOGY SUPPORT ANALYST TO INSTRUCT ON DIABETIC FOOT CARE AND MONITOR FOR SKIN LESIONS ON LOWER EXTREMITIES. BLOOD GLUCOSE TESTING DAILY FREQ. RN TO ASSESS AND TEACH, REVIEW CONSULTANT/TECHNOLOGY SUPPORT ANALYST TO OBSERVE AND TEACH PATIENT/CAREGIVER ABILITY TO PERFORM AND RECORD BLOOD GLUCOSE TESTING ORDERED AND TO REPORT ABNORMAL FINDINGS TO PHYSICIAN. RN/REVIEW CONSULTANT/TECHNOLOGY SUPPORT ANALYST MAY PERFORM BLOOD GLUCOSE TEST NEEDED. RN/REVIEW CONSULTANT/TECHNOLOGY SUPPORT ANALYST TO REPORT TO PHYSICIAN BLOOD GLUCOSE READINGS GREATER THAN 400 OR LESS THAN 60 RN/REVIEW CONSULTANT/TECHNOLOGY SUPPORT ANALYST TO INSTRUCT PATIENT ON IMPORTANCE OF HGBA1C MONITORING, KIDNEY FUNCTION TEST, EYE AND FOOT EXAMS.] Future Scheduled Test FALL REDUC TION MANAGEMENT; RN TO ASSESS AND OBSERVE, TECHNOLOGY SUPPORT ANALYST/REVIEW CONSULTANT TO OBSERVE FALL RISK FACTORS AND EDUCATE PATIENT/CAREGIVER ON STRATEGIES TO MINIMIZE THE RISK OF FALLING. [code = FALL REDUCTION MANAGEMENT; RN TO ASSESS AND OBSERVE, TECHNOLOGY SUPPORT ANALYST/REVIEW CONSULTANT TO OBSERVE FALL RISK FACTORS AND EDUCATE PATIENT/CAREGIVER ON STRATEGIES TO MINIMIZE THE RISK OF FALLING.] Future Scheduled Test PRN VISITS ; NUMBER OF RN/TECHNOLOGY SUPPORT ANALYST/REVIEW CONSULTANT VISITS: 2 RN/TECHNOLOGY SUPPORT ANALYST/REVIEW CONSULTANT TO PERFORM: WOUND CARE FOR THE FOLLOWING REASONS: WOUND INFECTION, ODOR, INCREASED DRAINAGE [code = PRN VISITS; NUMBER OF RN/TECHNOLOGY SUPPORT ANALYST/REVIEW CONSULTANT VISITS: 2 RN/TECHNOLOGY SUPPORT ANALYST/REVIEW CONSULTANT TO PERFORM: WOUND CARE FOR THE FOLLOWING [...] End Date/Time Encounter Type Admission Type Attending [facility] [place] Facility Care Department Encounter ID Discharge Date Discharge Status Discharge Condition Discharge Reason Percent Goals Met 2025-02-22 00:00:00 2025-04-22 00:00:00 Outpatient RECERTIFIC ATION JOHN MCNEIL [facility] [id number]
== END 2025-03-09 23:59 | disposition home or self-care (01) ==
LOC: RAD 07:58
PROVIDERS: PCP Nurse Practitioner; Visit Provider Podiatrist
DX: S92.331D Displaced fracture of third metatarsal bone, right foot, subsequent encounter for fracture with routine healing (principal); R93.6 Abnormal findings on diagnostic imaging of limbs; M86.8X7 Other osteomyelitis, ankle and foot; M86.671 Other chronic osteomyelitis, right ankle and foot
CPT/HCPCS: 73702; Q9967

== ENCOUNTER 2025-03-13 13:27 | Day surgery (SDC) | payer MEDICARE, OTHER, SELFPAY ==
[2025-03-13 13:49] VITALS: BP 148/74; PULSE 89; RESP 18; O2SAT 92; BMI 39.5
--- NOTE | 2025-03-13 13:56 | EXP.PM.HP ---
History of Present Illness *Admission Date: 03/13/25 *Reason for visit:: Intrathecal refill; DDD *History of present illness: Same [facility] Disclaimer: The information contained in this section may have been updated after the patient was seen, as this information can be updated by other users. Medical History Pre-ulcerative calluses Ingrown toenail of left foot Intractable neuropathic pain of right lower extremity Skin change Decreased pedal pulses Diabetic foot ulcer Pain in both feet Viral upper respiratory tract infection Leg pain Anxiety about health Moderate depressive disorder Cellulitis Patient left without being seen Chronic pain disorder Lumbar radiculopathy, acute Neuropathic pain Hyperglycemia Hypothyroidism Other forms of angina pectoris Other specified depressive episodes Neuralgia and neuritis Hypertension with goal to be determined Anxiety with somatization Vitamin D deficiency Microalbuminuria Keratosis Callus of foot Onychodystrophy Onychoincurvatum Bronchitis Angina at rest Right flank pain Chest pain Presence of intrathecal pump Excess skin of arm bilateral removal Encounter for wound care 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 Type 2 diabetes mellitus Diabetic foot Surgical History Total knee replacement status bilateral Family History Other Family history of COPD (chronic obstructive pulmonary disease) Family history of cancer Family history of diabetes mellitus type II Family history of hypertension Family history of myocardial infarction Social History Smoking Status: Current some day smoker tobacco type: cigarettes packs per day: 1 second hand exposure: Yes alcohol intake: never substance use type: denies use current occupational status: other Travel in the last 8 weeks?: None household members: friend(s) housing: house lives independently: Yes marital status: single education level: high school 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 caffeine: Yes special heather needs: No agree to transfusion: No do you feel safe at home: Yes victim of physical abuse: No victim of emotional abuse: No victim of sexual abuse: No would you like helpful sources: No Have you lived/traveled outside US in past 30 days?: No Contact w/someone who lives/traveled outside US past 30 days?: No Exposure to someone with infectious disease in past 14 days?: No Do you have a fever (greater than 100.4 F or 38 C)?: No Have you tested positive for COVID-19?: No Exposed to someone with COVID-19 in past 14 days?: No Do you have a sore throat?: No Do you have a cough?: No Do you have any weakness?: No Do you have any diarrhea?: No Are you experiencing any unusual bleeding?: No Do you have any muscle aches/pain?: No Do you have any abdominal pain?: No Are you experiencing loss of taste or smell?: No Other Medical History Have you received the Flu Vaccine for this season: No Have you received the Pneumonia Vaccine: No Review of Systems Review of Systems Review of systems:: pertinent systems reviewed and negative unless documented below Review of systems (narrative): Review of Systems: General: No recent weight changes, no fever, no sleep disturbances Respiratory: No cough, no shortness of air, no recurring pulmonary infections Cardiovascular/peripheral vascular: No chest pain, no palpitations, no edema, no shortness of breath Gastrointestinal: No new onset incontinence, normal bowel movements reported Genitourinary: No new onset incontinence Musculoskeletal: Chronic back pain, right foot pain Psychiatric: [Normal mood/affect] Neurological: [Denies weakness in extremities], [denies balance issues] Meds Home Medications and Allergies Home Medications ?Medication ?Instructions ?Recorded ?Confirmed ?Type flash glucose sensor 05/04/22 03/13/25 History flash glucose scanning reader 08/14/22 03/13/25 History ([employer] Joelle 14 Day [place]) carvedilol 25 mg tablet 25 mg PO BID High blood pressure 02/15/23 03/13/25 Rx 90 days #180 tabs fenofibrate 54 mg tablet 54 mg PO DAILY Cholesterol #90 tabs 02/15/23 03/13/25 Rx insulin glargine 100 unit/mL (3 10 unit (0.1 mL) SQ HS Diabetes 02/15/23 03/13/25 Rx mL) subcutaneous pen #15 mL lisinopril 2.5 mg tablet 2.5 mg PO DAILY Hypertension #90 02/15/23 03/13/25 Rx tabs methocarbamol 1,000 mg tablet 1,000 mg PO TID muscle spasms #90 04/16/23 03/13/25 Rx tabs flash glucose sensor (FreeStyle #1 ea 06/15/23 03/13/25 Rx Joelle 14 Day Sensor kit) furosemide 40 mg tablet 40 mg PO BID 07/02/24 03/13/25 History hydroxyzine pamoate 25 mg capsule 25 mg PO TID PRN Panic Disorder 07/02/24 03/13/25 History (Vistaril) isosorbide dinitrate 30 mg tablet 30 mg PO BID 07/02/24 03/13/25 History methimazole 5 mg tablet 2.5 mg PO DAILY 07/02/24 03/13/25 History pantoprazole 40 mg tablet,delayed 40 mg PO DAILY 07/02/24 03/13/25 History release ropinirole 3 mg tablet 3 mg PO HS 07/02/24 03/13/25 History tizanidine 4 mg tablet (Zanaflex) 4 mg PO BID PRN Myalgia 07/02/24 03/13/25 History trazodone 150 mg tablet 150 mg PO HS 07/02/24 03/13/25 History semaglutide 2 mg/dose (8 mg/3 mL) 2 mg SQ WEEKLY 07/28/24 03/13/25 History subcutaneous pen injector (Ozempic) citalopram 40 mg tablet (Celexa) 40 mg PO DAILY 09/11/24 03/13/25 History duloxetine 60 mg capsule,delayed 60 mg PO DAILY MOOD 09/11/24 03/13/25 History release (Cymbalta) silver sulfadiazine 1 % topical 1 applic topical DAILY 30 days #50 10/28/24 03/13/25 Rx cream (Silvadene) grams gabapentin 600 mg tablet 600 mg PO TID 02/05/25 03/13/25 History clindamycin HCl 300 mg capsule 300 mg PO TID cellulitis 2 weeks 02/12/25 03/13/25 Rx #42 caps tramadol 50 mg tablet 50 mg PO BID PRN pain #60 tabs 02/18/25 03/13/25 Rx New Prescriptions to Start Prescriptions: Allergies Allergy/AdvReac Type Severity Reaction Status Date / Time ceftriaxone (From ROCEPHIN) Allergy Unknown Rash Verified 02/12/25 11:04 droperidol (From INAPSINE) Allergy Unknown Hives Verified 02/12/25 11:04 ibuprofen (IBUPROFEN) Allergy Unknown Hives Verified 02/12/25 11:04 moxifloxacin (From AVELOX) Allergy Unknown Rash Verified 02/12/25 11:04 Exam Data for Last 24 hours Vital signs and Labs for Last 24 Hours: Pulse Resp BP Pulse Ox O2 Del Method 89 18 148/74 H 92 L Room Air 03/13/25 13:49 03/13/25 13:49 03/13/25 13:49 03/13/25 13:49 03/13/25 13:49 I & O for Last 24 hours: Intake & Output 03/10/25 03/11/25 03/12/25 03/13/25 23:59 23:59 23:59 23:59 Weight 245 lb Constitutional Constitutional: no acute distress and obese *Routine HEENT Exam Head: Present normocephalic and atraumatic Eye: Present PERRL ENT: Present mucous membranes moist *Routine Neck Exam Neck: Present supple *Routine Respiratory Exam Respiratory: Present CTA bilaterally *Routine Cardiovascular Exam Cardiovascular: Present RRR *Routine Abdominal Exam Abdominal: Present soft *Routine Rectal Exam Rectal:: deferred *Routine Genitalia Exam Genitalia:: deferred Routine Back/Spine/Pelvis Exam Back/Spine: Present pain with flexion *Routine Skin Exam Skin: Present dry and warm *Routine Neurological Exam Neurological: Present alert and oriented X3 Routine Psychiatric Exam Psychiatric: Present normal affect and normal thought process Assessment and Plan *Assessment and plan (1) Diabetic ulcer of right foot: Status: Acute Qualifiers: Diabetic foot ulcer location: other Diabetes mellitus type: type 2 Non-pressure ulcer stage: with muscle involvement without evidence of necrosis Qualified Code(s): E11.621 - Type 2 diabetes mellitus with foot ulcer; L97.515 - Non-pressure chronic ulcer of other part of right foot with muscle involvement without evidence of necrosis Category: Medical Code(s): E11.621 - Type 2 diabetes mellitus with foot ulcer; L97.519 - Non-pressure chronic ulcer of other part of right foot with unspecified severity (2) Degenerative joint disease (DJD) of lumbar spine: Status: Chronic Qualifiers: Spinal osteoarthritis complication: with radiculopathy Qualified Code(s): M47.26 - Other spondylosis with radiculopathy, lumbar region Category: Medical Code(s): M47.816 - Spondylosis without myelopathy or radiculopathy, lumbar region (3) Lumbar radiculopathy: Status: Chronic Category: Medical Code(s): M54.16 - Radiculopathy, lumbar region Plan Patient has been instructed to contact the clinic with any concerns before the next appointment. Dr. Goddard has reviewed this note and agrees with this plan of care. This note was dictated using voice recognition software and make contain errors or omissions. All injections are used with Lidocaine, Bupivacaine and dexamethasone. Occasionally urine drug screen is needed to verify patient's compliance with our office pain contract. This is ordered based off specific treatments related to chronic pain with the potential to abuse certain medications.
--- NOTE | 2025-03-13 13:58 | P.PCN_ITS ---
Procedure Date: 03/13/25 Time: 14:23 Anesthesiologist:: Renae Rey APRN Complications:: None Pre-procedure Diagnosis:: Degenerative disc disease of lumbar spine with lumbar radiculopathy symptoms, chronic pain syndrome, diabetic peripheral neuropathy Post-procedure Diagnosis:: Same Indications for Procedure:: Patient is a pleasant 54-year-old female who presents today for intrathecal refill and reprogram. Today she rates her pain as 7 out of 10. She denies any new trauma or injury. Patient is still dealing with the ulcer on her right foot. Patient states she did have a CT and is going to Dr. Ruth's office on Sunday to follow-up with the results. Patient does state that she was able to get her device fully charged and it will let her go into MRI mode. Patient states that she thinks they are still planning on proceeding forward with the advanced imaging however nothing has been scheduled. Patient is prescribed tramadol 50 mg twice a day from our office for the pain in her foot that the pump cannot reach. Patient is currently managed with Dilaudid 20 mg/mL with a d aily dose of 9 mg/day of the Dilaudid and bupivacaine 10 mg/mL with a daily dose of 4.5 mg/day of it. She denies any side effects. Her Sukhjinder has been reviewed and is appropriate. Physical Exam: General: Alert and oriented x3, no acute distress, pleasant and cooperative Lungs: Respirations even and unlabored, symmetrical chest expansion Eyes: PERRL Musculoskeletal: Flexion and extension of lumbar [spine] somewhat guarded secondary to pain, [antalgic gait noted] Neurological: Speech clear, no gross sensory deficit Procedure Details:: Informed consent was obtained and the risk and benefits of the procedure were explained to the patient. The patient had noninvasive monitoring placed including noninvasive blood pressure cuff and pulse oximeter. Patient's pump was interrogated. The area over the pump was cleansed with chlorhexidine as a cleansing solution. In sterile fashion the pump was accessed with a 22-gauge needle. Approximately 11.5 mls of the pump solution was removed and discarded appropriately. The pump was then refilled with 20 mL's of Dilaudid 20 mg/mL and bupivacaine 10 mg/mL. The needle was withdrawn and a bandage was placed over the puncture site. The infusion rate was reprogrammed and continued at its current dosage. The patient tolerated well with no complication. Plan and Disposition:: Patient tolerated the procedure well with no complications and was discharged neurologically intact. I will make sure she has refills on her tramadol. Patient will return to clinic on or before their next intrathecal refill date. We will see the patient back in the clinic at the next intrathecal refill. Patient has been instructed to contact the clinic with any concerns before the next appointment. Dr. Goddard has reviewed this note and agrees with this plan of care. This note was dictated using voice recognition software and make contain errors or omissions. -- It Is medically necessary for this patient to continue to have their intrathecal pump refilled at regular intervals. This patient had an intrathecal pain pump implanted after meeting criteria of chronic intractable pain for greater than 3 months and failing conservative treatments. Patient has committed and been compliant to the treatment plan and all planned follow up care. Since implantation of the intrathecal pain pump, the patient has had decreased pain and been more functional. Oral medications have been reduced including intake of oral opioids. Patient continues to do well with intrathecal therapy with decrease in pain symptoms and increase in functional status. Stopping intrathecal medications can lead to life threatening withdrawal, seizures, cardiac arrest, severe pain, and possible . Pumps that are not refilled at regular intervals can be damages and cause and need for replacement. We continually titrate dose and concentration to optimize pain relief and function. We are limited in concentration for certain drugs to safely deliver medications through the pump and stay within the recommendations from the Polyanalgesic Consensus Committee Guidelines. Depending on dose and concentration these pumps may need to be refilled sooner than 3 months as we titrate. A UDS is needed to verify patient's compliance with our office pain contract. This is ordered based off specific treatments related to chronic pain with the potential to abuse certain medications.
[2025-03-13 14:18] VITALS: BP 148/74; PULSE 89; RESP 18; O2SAT 92
[2025-03-13 14:35] VITALS: BP 136/76; PULSE 81; RESP 18; O2SAT 91
== END 2025-03-13 14:35 | disposition home or self-care (01) ==
PROVIDERS: PCP Nurse Practitioner; Visit Provider Nurse Practitioner Family
DX: Z45.1 Encounter for adjustment and management of infusion pump (principal); M51.16 Intervertebral disc disorders with radiculopathy, lumbar region; G89.4 Chronic pain syndrome; E11.40 Type 2 diabetes mellitus with diabetic neuropathy, unspecified; E11.621 Type 2 diabetes mellitus with foot ulcer; L97.519 Non-pressure chronic ulcer of other part of right foot with unspecified severity; F32.A Depression, unspecified; Z96.653 Presence of artificial knee joint, bilateral; F17.210 Nicotine dependence, cigarettes, uncomplicated; Z79.899 Other long term (current) drug therapy; Z79.4 Long term (current) use of insulin; Z79.85 Long-term (current) use of injectable non-insulin antidiabetic drugs; Z88.6 Allergy status to analgesic agent; Z88.8 Allergy status to other drugs, medicaments and biological substances
CPT/HCPCS: 62370

== ENCOUNTER 2025-03-24 08:21 | Day surgery (SDC) | payer MEDICARE, OTHER, SELFPAY ==
[2025-03-24] MEDS: TETRACAINE 0.5% OPTH SOL 15ML OP ×3 (09:35→09:45)
[2025-03-24] MEDS: CYCLOPENTOLATE 2% OPHTH SOLN 2ML BOTTLE OP ×3 (09:35→09:45)
[2025-03-24] MEDS: PHENYLEPHRINE 2.5% OPHTH SOLN 2ML OP ×3 (09:40→09:45)
[2025-03-24 09:54] VITALS: BP 122/60; PULSE 81; RESP 18; O2SAT 91; BMI 39.5
[2025-03-24 10:11] VITALS: BP 133/63; PULSE 74; RESP 16; O2SAT 99
[2025-03-24] MEDS: MIDAZOLAM 2MG/2ML VIAL 1 MG IV (10:11)
[2025-03-24 10:16] VITALS: BP 135/64; PULSE 73; RESP 16; O2SAT 99
[2025-03-24] MEDS: SODIUM CHLORIDE 0.9% 10ML FLUSH SYRINGE 10 ML IV (10:16)
[2025-03-24] MEDS: LIDOCAINE 1% PF 2ML AMPULE 2 ML IJ (10:16)
[2025-03-24] MEDS: TIMOLOL 0.5% OPTH SOLN 5ML OP (10:16)
[2025-03-24] MEDS: TOBRAMYCIN/DEX OPTH SUSP 2.5ML OP (10:16)
[2025-03-24 10:21] VITALS: BP 140/66; PULSE 72; RESP 16; O2SAT 99
[2025-03-24 10:26] VITALS: BP 142/71; PULSE 72; RESP 16; O2SAT 99
[2025-03-24 10:45] VITALS: BP 164/90; PULSE 75; RESP 16; TEMP 36.2; O2SAT 99
--- NOTE | 2025-03-24 10:58 | P.PCN_ITS ---
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 The patient reports that this interferes with ADLs such as reading, watching TV and/or driving or the vision is like looking through a foggy haze and is very troubling. The patient was examined and found to have a visually significant cataract with best corrected vision of [20/400] by refraction and/or glare testing. Treatment options, risks and benefits were explained and the patient elected to have cataract surgery in an attempt to improve their vision. The patient had the eye anesthetized with topical tetracaine, the eye ways prepped and draped in the usual fashion for cataract surgery. A paracentesis and a temporal keratotomy were made. 0.2cc of 1% lidocaine PF was placed into the anterior chamber. And aqueous/viscoelastic exchange was done and a 360 degree capsulorexis was performed. Through hydrodissection and delineation with BSS on a cannula was done. The lens nucleus was phecoemulsified with CDE of [5.34]. Residual cortical material was removed using automated I&A The capsular bag was deepened with viscoelastica and a PCIOL was placed in the capsular bag with good centration and stability. Residual viscoelastic was removed using automated I&A. The keratotomy incision was hydrated with BSS on a cannula. The wound were checked and found to be water tight. IOP was checked digitally and adjusted as needed so as not to be too high. 1 drop of timolol 0.5%, ofloxacin, prednisolone acetate and ketorolac was instilled and eye shield taped over the eye. The patient was taken to recovery in good condition and will be seen postoperatively.
== END 2025-03-24 10:44 | disposition home or self-care (01) ==
PROVIDERS: PCP Nurse Practitioner; Visit Provider Ophthalmology
PROC: (CPT 66984; principal; 2025-03-24 10:00)
DX: E11.36 Type 2 diabetes mellitus with diabetic cataract (principal); H25.811 Combined forms of age-related cataract, right eye; E78.00 Pure hypercholesterolemia, unspecified; E03.9 Hypothyroidism, unspecified; F41.9 Anxiety disorder, unspecified; M19.90 Unspecified osteoarthritis, unspecified site; J44.9 Chronic obstructive pulmonary disease, unspecified; F32.A Depression, unspecified; K21.9 Gastro-esophageal reflux disease without esophagitis; E11.319 Type 2 diabetes mellitus with unspecified diabetic retinopathy without macular edema; E11.40 Type 2 diabetes mellitus with diabetic neuropathy, unspecified; I10 Essential (primary) hypertension; Z88.6 Allergy status to analgesic agent; Z88.1 Allergy status to other antibiotic agents; Z88.8 Allergy status to other drugs, medicaments and biological substances; Z79.899 Other long term (current) drug therapy; Z79.4 Long term (current) use of insulin; Z79.85 Long-term (current) use of injectable non-insulin antidiabetic drugs; Z97.3 Presence of spectacles and contact lenses; Z83.3 Family history of diabetes mellitus; F17.210 Nicotine dependence, cigarettes, uncomplicated
CPT/HCPCS: 66984; J2250; V2632

== ENCOUNTER 2025-04-06 12:03 | Outpatient (CLI) | payer MEDICARE, OTHER, SELFPAY ==
--- NOTE | 2025-04-06 12:06 | XR_ITS ---
FINAL REPORT CLINICAL HISTORY: ulcer of right foot/pain FINDINGS: RIGHT FOOT 3 views of the right foot were obtained. There is no acute fracture or dislocation. There is a resection at the base of the fourth metatarsal and of the entire fifth digital ray. Visualized joint spaces are normally aligned. Soft tissue ulceration is seen along the inferior lateral margin of the cuboid. There is no evidence of bony erosion. IMPRESSION: Soft tissue ulceration along the inferior lateral margin of the cuboid without evidence of bony erosion. Reviewed, Interpreted and Dictated by Agustin Frazier MD Transcribed by Delicia Snow Authenticated and [facility]
--- OUTSIDE RECORDS SUMMARY | 2025-04-06 12:18 | XMS_ITS | Clinical Summary ---
Author Organization [facility] Address [address] [place] [address] Phone Care Team Providers Care Regional Service Manager Name Role Phone Sanaz RN, Linn Unavailable [...] lower limb Acute respiratory failure with hypercapnia 39348393 (SNOMED CT) Active Freda Medina Acute respiratory failure Leukemoid reaction 78863973 (SNOMED CT) Active Freda Medina Leukemoid reaction longterm (current) use of systemic steroids Z79.52 (ICD-10-CM ) Active Freda Medina longterm (current) use of systemic steroids Benign Essential Hypertension 10840073 (SNOMED CT) Active Freda Medina Benign hypertension [...]
--- OUTSIDE RECORDS SUMMARY | 2025-04-06 12:38 | XMS_ITS | Encounter Summary ---
Author Organization [employer] ([place], [place], [place], [place]) Address [address] [place] [address] Care Team Providers Care Drug Counselor Name Role Phone Unavailable Primary Care Provider Unavailabl e Encounter Details Date Type Department Care Team (Late st Contact Info) Description 03/29/2022 Transcribed Document [facility] [place] [address] [place] [address] ProviderStefani MD [address] [place] [address] Social History Tobacco Use Types [...] Cole MD - 03/29/2022 12:50 PM CDT [facility] [place] [address] SEEMA DELACRUZN :1970 Visit Time:03/29/2022 Your Visit Summary Your [...] has been made Where: [address] [place] [address]- [phone] [facility] (1) Medications What How Much When Instructions [...] these instructions at home: Medicines ??? Take skzr-sva-zkhzolk and prescription medicines only as told by your health care provider. Insertion site care ??? Follow instructions from your health care provider about how to take care of your insertion site. Make sure you: ? Wash your hands with soap and water before you change your bandage (dressing). If soap and water are not available, use hand hide cooking operator. ? Change your dressing as told by [...] provider. Document Revised: 10/23/2018 Document Reviewed: 10/23/2018 [employer] Patient Education ?? 2021 [employer] Moderate Conscious Sedation, Adult, Care After [...] eating solid foods. General instructions ??? Take tyvl-umb-eklfkxa and prescription medicines only as told by [...] Reviewed: 08/12/2020 Elsevier Patient Education ?? 2020 [employer] Emergency Awareness and Preventative Care STROKE [...] Assistance with quitting is available by contacting 2-728-RWLONOW. This is a free resource providing counseling, support, and referral. Or you may contact your personal physician. [place] Suicide Prevention Lifeline: The National Suicide Prevention [...] was given the opportunity to ask questions. Patient/Surgical Appliance Fitter Name: Patient/Surgical Appliance Fitter Signature: Relationship to Patient: Clinician/Hospital Surgical Appliance Fitter Signature: Date: documented in this encounter Plan of Treatment Not on file documented as of this encounter Visit Diagnoses Not on filedocumented in this encounter
--- OUTSIDE RECORDS SUMMARY | 2025-04-06 12:38 | XMS_ITS | Encounter Summary ---
Author Organization [employer] ([place], [place], [place], [place]) Address [address] [place] [address] Care Team Providers Care Financial Project Manager Name Role Phone Unavailable Primary Care Provider Unavailabl e Encounter Details Date Type Department Care Team (Late st Contact Info) Description 03/29/2022 Transcribed Document [facility] [place] [address] [place] [address] ProviderStefani MD [address] [place] [address] Social History Tobacco Use Types [...]
--- OUTSIDE RECORDS SUMMARY | 2025-04-06 12:38 | XMS_ITS | Clinical Summary ---
Author Organization [employer] [facility] ([place], [place], [place], [place]) Address [address] [place] [address] Care Team Providers Care Screwmaker Automatic Name Role Phone Unavailable Primary Care Provider [...]
--- OUTSIDE RECORDS SUMMARY | 2025-04-06 12:38 | XMS_ITS | Encounter Summary ---
Author Organization [employer] ([place], [place], [place], [place]) Address [address] [place] [address] Care Team Providers Care Testing Projects Administrator Name Role Phone Unavailable Primary Care Provider Unavailabl e Encounter Details Date Type Department Care Team (Late st Contact Info) Description 03/29/2022 Transcribed Document [facility] Cardiology [address] [place] [address] Faustino West MD [address] [facility] [address] [place] [id number] Social History Tobacco Use Types Packs/Day Years [...] WEST MD-CAR Basic Information PCP: Dr. Amador Laundry Aide: Noris Fallon MD Chief Complaint Abnormal Stress [...] Active COPD - Chronic obstructive pulmonary disease (093000215) HLD - Hyperlipidemia (937460656) HTN - Hypertension (9028776352) MEGHAN - Obstructive sleep apnea (0259698347) Type 2 diabetes mellitus (320219042) Family History: Father HDL - High density [...] of motion, Normal strength. Integumentary: Warm, Dry, [place]. Neurologic: Alert, Oriented. Psychiatric: Cooperative, Appropriate mood [...]
--- OUTSIDE RECORDS SUMMARY | 2025-04-06 12:38 | XMS_ITS | Clinical Summary ---
Author Organization [facility] Address [address] [place] [address] Phone Care Team Providers Care Non Licensed Nuclear Plant Operator Name Role Phone Unavailable Primary Care Provider [...] ( season) 2024 04/07/2021, 03/17/2021 Influenza Vaccine (#1) 2025 3, 07/06/2022, 08/05/2021, Additional history exists Breast Cancer [...] Impressions 11/19/2023 7:29 AM EST Benign finding (ZBW-Wwtfipeb-3) ~ RECOMMENDATION: Routine screening mammogram in 1 [...] the next mammogram, in accordance with the [employer] and the Society of Breast Imaging recommendations. Narrative 11/19/2023 7:29 AM EST Procedure:MM MAMMO DIGITAL EULALIA SCREEN BILAT ~ Reason for exam: screening, asymptomatic. Z12.31-Encounter for screening mammogram for malignant neoplasm of lsnkys-HTP-02-CM ~ MM MAMMO DIGITAL EULALIA SCREEN BILAT [...] for screening mammogram for malignant neoplasm of wtlyha-KSG-60-CM ~ MM MAMMO DIGITAL EULALIA SCREEN BILAT [...] evidence of malignancy. ~ IMPRESSION: Benign finding (QJQ-Mosrfare-4) ~ RECOMMENDATION: Routine screening mammogram in 1 [...] the next mammogram, in accordance with the [employer] and the Society of Breast Imaging recommendations. us Not In [facility] Provider IMG MAMMOGRAPHY ORDERABLES Final Result from Last 3 Months or Most Recently Relevant to Health Maintenance [place] [address] [place] [address] AETNA MEDICARE HMO
--- OUTSIDE RECORDS SUMMARY | 2025-04-06 12:38 | XMS_ITS | Encounter Summary ---
Author Organization [employer] ([place], [place], [place], [place]) Address [address] [place] [address] Care Team Providers Care Industrial Relations Worker Name Role Phone Unavailable Primary Care Provider Unavailabl e Encounter Details Date Type Department Care Team (Late st Contact Info) Description 03/29/2022 Transcribed Document [facility] [place] [address] [place] [address] ProviderStefani MD [address] [place] [address] Social History Tobacco Use Types [...] these instructions at home: Medicines ??? Take azfv-joz-xxqwate and prescription medicines only as told by your health care provider. Insertion site care ??? Follow instructions from your health care provider about how to take care of your insertion site. Make sure you: ? Wash your hands with soap and water before you change your bandage (dressing). If soap and water are not available, use hand rn midwife. ? Change your dressing as told by [...] provider. Document Revised: 10/23/2018 Document Reviewed: 10/23/2018 [employer] Patient Education ? 2020 [employer] Pharmacology Moderate Conscious Sedation, Adult, Care [...] eating solid foods. General instructions ??? Take xbfz-hwn-ckeexek and prescription medicines only as told by [...] provider. Document Revised: 01/14/2021 Document Reviewed: 08/12/2020 [employer] Patient Education ? 2020 [employer] documented in this encounter Plan of Treatment Not on file documented as of this encounter Visit Diagnoses Not on filedocumented in this encounter
--- OUTSIDE RECORDS SUMMARY | 2025-04-06 12:38 | XMS_ITS | Encounter Summary ---
Author Organization [facility] Address [address] [place] [address] Care Team Providers Care Customs Compliance Manager Name Role Phone Faustino Amador MD Primary Care Provider [phone] Reason for Referral * Consultation (Routine) - Closed Specialty Diagnoses / Procedures Referred By Betito carty Referred To Contact Plastic Surgery Diagnoses Excess skin Khurram Chanel APRN [address] [place] [address] Phone: tel: fax: Referral ID Status Reason Start Date Expiration Date V isits Requested Visits Authorized [id number] Closed Specialty Services Required 11/29/2021 05/31/2023 1 1 Encounter Details Date Type Department Care Team (Late st Contact Info) Description 11/29/2021 [facility] [address] [place] [address] Khurram Chanel APRN [address] [place] [address] Excess skin (Primary Dx) Social History Tobacco [...] Primary documented in this encounter Care Teams Customs Compliance Manager Relationship Specialty Start Date End Date Faustino Amador MD [address] [place] [address] PCP - General 03/14/21 documented as of this encounter
--- OUTSIDE RECORDS SUMMARY | 2025-04-06 12:38 | XMS_ITS | Clinical Summary ---
Author Organization [facility] Address [address] [place] [address] Care Team Providers Care Neurodiagnostic Tech Name Role Phone Faustino Amador MD Primary Care Provider + [phone] Allergies Active Allergy Reactions Criticality Noted Date [...] day. 10/10/19 Active Lancets (OneTouch Delica Plus Bpidoz19Y) [facility] [place] 07/11/20 Active Easy Comfort Pen [place] 31G X 5 MM [facility] [place] 12/11/19 Active HumuLIN 70/30 KWIKPEN (70-30) 100 UNIT/ML injection 60 Units 2 (two) times a day before meals. 09/06/20 Active OneTouch Verio test strip 07/11/20 Active gabapentin (Neurontin) 400 MG capsule Take 1 capsule (400 mg) by mouth 4 (four) times a day. 11/21/19 Active cyclobenzaprine (Fexmid) 7.5 MG tablet every night. 10/28/19 Active Continuous Blood Gluc Sensor (FreeStyle Joelle 14 Day Sensor) [facility] [place] 11/14/19 Active diclofenac (Voltaren) 75 MG EC [...] directed 10/29/19 24 Active ergocalciferol 1.25 MG (84811 UT) capsule Take 1 capsule every week by oral route for 90 days. 10/29/19 24 Active methocarbamol (Robaxin) 500 MG tablet 10/29/19 24 Active ondansetron ODT (Zofran-ODT) [address] 1 tablet every 4-6 hours by translingual route as needed. Active therapeutic multivitamin-ampoule examiner als (Theragran-M) tablet Take 1 tablet by [...] (05/24/2022): Added automatically from request for surgery [id number] Excess skin 12/16/2021 Overview (12/16/2021): Added automatically from request for surgery [id number] Microalbuminuria 03/12/2020 Cervical radiculopathy 11/22/2018 Neck pain [...] drink first t debra in the morning (EYE-AQUATICS DIRECTOR) to steady your nerves or to get [...] Health Maintenance Due Date Last Done Comments [facility]-Diabetes: Hemoglobin A1C 1970 [facility]-HIV Screening 1970 [facility]-Hepatitis C Screening 1970 [facility]-Medicare Annual Wellness (AWV) 1970 [facility]-/Child/Adol SDOH Screenings 1970 Diabetes: Dental Exam 1979 [facility]- SDOH Screenings 1987 [facility]-Adult SDOH Screenings 1987 [facility]-DTaP,Tdap,and Td Vaccines (1 - Tdap) 1988 [facility]-Hepatitis B Vaccines (1 of 3 - 19+ 3-dose series) 1988 [facility]-Pap Smear 1990 [facility]-Cervical Cancer Screening 1999 [facility]-HPV/Cotest 1999 CT Colonography 2014 Colonoscopy 2014 FIT-DNA 2014 FIT 2014 FOBT 2014 Sigmoidoscopy 2014 [facility]-Colorectal Cancer Screening 2014 [facility]-Lung Cancer Screening 2019 [facility]-Zoster Vaccines (1 of 2) 2019 [facility]-MPVBY-16 Vaccine (3 - 2023- season) 2024 04/07/2021, 03/17/2021 [facility]-Depression Screening 11/12/2024 11/12/2023 [facility]-Influenza Vaccine (#1) 2025 07/01/2019, [facility]-Breast Cancer Screening 11/09/2025 11/09/2023, 0 11/09/2023 [...] this topic Medical Devices Implanted Type Area Vulcanized Fiber Unit Operator Device Identifier Shelf Expiration Date Model / Serial / Lot Pain Pump Pain Pump Right: Back Insurance [employer] MEDICAID AETNA MEDICARE Advance Directives * Full Code (Latest Code Status on File) Date Activated Date Inactivated Comments 05/24/2022 4:10 PM 05/26/2022 3:36 PM Question Answer Comments Patient has decision-making capacity? Yes Care Teams Neurodiagnostic Tech Relationship Specialty Start Date End Date Faustino Amador MD [address] [place] [address] PCP - General 03/14/21
--- OUTSIDE RECORDS SUMMARY | 2025-04-06 12:38 | XMS_ITS | Encounter Summary ---
Author Organization [employer] ([place], [place], [place], [place]) Address [address] [place] [address] Care Team Providers Care Agency Sales Representative Name Role Phone Unavailable Primary Care Provider Unavailabl e Encounter Details Date Type Department Care Team (Late st Contact Info) Description 03/29/2022 Transcribed Document [facility] [place] [address] [place] [address] ProviderStefani MD [address] [place] [address] Social History Tobacco Use Types [...] Source : Stated Height Entry Format : [place] Height, Feet : 5 ft(Converted to: 152 cm, 60 Inch) Height, Inches : 6 Inch(Converted to: 0 ft 6 Inch, 15.24 cm) Clinical Height : 167.64 cm Weight Source : Standing scale Weight Entry Format : [place]wood Clinical Dosing Weight : 123.64 kg Weight, Pounds : 272 lb Body Surface Area (BSA) : 2.28 m2 Body Mass Index : 44 kg/m2 (>HHI) [place] Body Weight : 59 kg Justina Childers [...] (Last Updated: 03/29/2022 08:12:04 EDT by Justina Childers RN) Alcohol: Alcohol Use History No. (Last Updated: 03/29/2022 08:12:07 EDT by Justina Childers RN) Infectious Disease History Does patient [...] Justina Childers RN - 03/29/2022 8:11 EDT [place] Suicide Severity Rating Scale (C-SSRS) CSSRS Past [...] nguyen Support Person/Pt Rep Contact Information : [phone] Want Family/Rep/Phys Notified of Admit : No Emergency Contact #1 : . Emergency Contact #1 Phone Number : . Emergency Contact #1 Relationship : . Emergency Contact #2 : . Emergency Contact #2 Phone Number : . Emergency Contact #2 Relationship : . Primary Language : [place] Communication Barrier : None Sports Agent Needed : No Justina Childers RN - [...] : No Cook Secondary Diagnosis : Yes COOK Use of Ambulatory Aid : None COOK IV Therapy or IV Access : Yes Cook Gait/Transferring : Normal, bedrest, immobile Cook Mental Status : Oriented to own ability Cook Fall Risk Score : 35 COOK Fall Scale Risk Level : 25-45 Medium Risk [place] Fall Interventions : Adequate lighting, Assistive devices [...]
--- OUTSIDE RECORDS SUMMARY | 2025-04-06 12:39 | XMS_ITS | Referral Summary ---
Author Organization [employer] [facility] ([place], [place], [place], [place]) Address [address] [place] [address] Care Team Providers Care Public Works Laborer Name Role Phone Unavailable Primary Care Provider [...]
[2025-04-06 12:40] LABS: Hematocrit 45.8 % (37.0-47.0); Hemoglobin 15.0 g/dL (12.2-16.2); Immature Granulocytes % 0.2 %; Mean Corpuscular HGB Conc 32.8 g/dL (31.8-35.4); Mean Corpuscular Hemoglobin 27.6 pg (27.0-31.2); Mean Corpuscular Volume 84.3 fl (81-99); Nucleated Red Blood Cells % 0 %; Platelet Count 242 K/mm3 (142-424); Red Blood Count 5.43 M/mm3 (4.20-5.40); Red Cell Distribution Width-SD 46.5 fL; White Blood Count 9.7 K/mm3 (4.8-10.8)
[2025-04-06 12:48] LABS: Hemoglobin A1C 11.3 % (4.0-6.0)
[2025-04-06 13:08] LABS: Alanine Aminotransferase 16 U/L (12-78); Albumin Level 3.6 g/dl (3.5-5.0); Albumin/Globulin Ratio 0.9 (1.1-1.8); Alkaline Phosphatase 134 U/L (38-126); Anion Gap 11.8 mEq/L (5-15); Aspartate Amino Transferase 27 U/L (14-36); Bilirubin,Total 0.5 mg/dl (0.2-1.3); Blood Urea Nitrogen 17 mg/dl (7-17); Calcium 9.3 mg/dl (8.4-10.2); Carbon Dioxide 31 mmol/L (22.0-30.0); Chloride 97 mmol/L (98-107); Creatinine,Serum 0.90 mg/dl (0.52-1.04); Estimated Glomerular Filt Rate 65 ml/min (>60); GFR (African American) 79 ML/MIN (>60); Globulin 3.9 g/dL (1.3-3.2); Glucose 152 mg/dl (74-100); Potassium 4.8 mmoL/L (3.5-5.1); Sodium 135 mmol/L (136-145); Total Protein,Serum 7.5 g/dl (6.3-8.2); Uric Acid 5.2 mg/dl (2.5-6.2)
[2025-04-06 13:13] LABS: C-Reactive Protein 5.0 mg/L (0-4)
--- OUTSIDE RECORDS SUMMARY | 2025-04-21 20:00 | XMS_ITS | Clinical Summary ---
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 Name Role Phone LEONID DPM, ORA Unavailable Unavailable STEPHY RN, ALINE Unavailable Unavailable JULIA ARZATEN, ASHELY Unavailable Unavaillisa BATEMAN OT, MITZI Unavailable Unavailable EWA RN, JONH Unavailable Unavailable CARINA TUCKER/TEMO, JAYLAN Unavailable Un available Payers Payer Name Policy Type Policy Number Effective Date Expira tion Date [employer].AUTH [id number] [facility].MA.C.AUTH [id number] ADMISSIONS.CODEREQUEST.[employer] US.AUTH [id number] Problems Condition Name Condition Details Condition Category Status Onset Date Resolution Date Last Treatment Date Treating Clinician Comments TYPE 2 DIABETES MELLITUS WITH FOOT ULCER Active 02-18 00:00: 00 NON-PRS CHRONIC ULCER OTH PRT RIGHT FOOT W FAT LAYER EXPOSED Active 02-18 00:00: 00 LYMPHEDEMA, NOT ELSEWHERE CLASSIFIED Active 10-01 00:00: 00 ESSENTIAL (PRIMARY) HYPERTENSION Active 10-01 00:00: 00 PURE HYPERCHOLEST EROLEMIA, UNSPECIFIED Active 10-01 00:00: 00 CHRONIC OBSTRUCTIVE PULMONARY DISEASE, UNSPECIFIED Active 10-01 00:00: 00 SLEEP APNEA, UNSPECIFIED Active 10-01 00:00: 00 DEPRESSION, UNSPECIFIED Active 10-01 00:00: 00 ALF (CURRENT) USE OF INSULIN Active 10-01 00:00: 00 HISTORY OF FALLING Active 10-23 00:00: 00 ACQUIRED ABSENCE OF OTHER RIGHT TOE(S) Active 10-01 00:00: 00 PRESENCE OF ARTIFICIAL KNEE JOINT, BILATERAL Active 10-01 00:00: 00 Allergies, Adverse Reactions, Alerts Allergy Name Allergy Type Status Severity Reaction(s) Onset Date Inactive Date Treating Clinician Comments AVELOX Propensity to adverse reactions Active 2023-10 11:11: 09 IBUPROFEN Propensity to adverse reactions Active 2023-10 11:11: 26 ROCEPHIN Propensity to adverse reactions Active 2023-10 11:11: 33 INAPSINE Propensity to adverse reactions Active 2023-10 09:13: 21 Medications Ordered Medication Name Filled Medication Name Start Date Stop Date Current Medication? Ordering Clinician Indication Dosage Frequency Signature (SIG) Comments Components citalopram 40 mg tablet 2023-10 00:00: 00 Yes [id number] DEPRESSION 1 tablet DAILY 1 tablet DAILY (route: oral) Med Classific ation: Central Nervous System Agents Coreg 25 mg tablet 2023-10 00:00: 00 Yes [id number] CARDIAC 1 tablet 2 TIMES DAILY 1 tablet 2 TIMES DAILY (route: oral) Med Classific ation: Cardiovas cular Therapy Agents duloxetine 30 mg capsule,del ayed release 2023-10 00:00: 00 Yes [id number] DEPRESSION 1 capsule DAILY 1 capsule DAILY (route: oral) Med Classific ation: Central Nervous System Agents fenofibrate 54 mg tablet 2023-10 00:00: 00 Yes [id number] CARDIAC 1 tablet DAILY 1 tablet DAILY (route: oral) Med Classific ation: Cardiovas cular Therapy Agents furosemide 40 mg tablet 2023-10 00:00: 00 Yes [id number] CARDIAC 1 tablet DAILY 1 tablet DAILY (route: oral) Med Classific ation: Cardiovas cular Therapy Agents gabapentin 800 mg tablet 2023-10 00:00: 00 Yes [id number] PAIN 1 tablet 3 TIMES DAILY 1 tablet 3 TIMES DAILY (route: oral) Med Classific ation: Central Nervous System Agents hydroxyzine HCl 25 mg tablet 2023-10 00:00: 00 Yes [id number] ANXIETY 1 tablet 3 TIMES DAILY 1 tablet 3 TIMES DAILY (route: oral) Med Classific ation: Central Nervous System Agents insulin glargine (U-300) conc. 300 unit/mL (3 mL) subcutaneou s pen 2023-10 00:00: 00 Yes [id number] DM 10 unit BEDTIME 10 unit BEDTIME (route: subcutaneo us) Med Classific ation: Endocrine isosorbide dinitrate 30 mg tablet 2023-10 00:00: 00 Yes [id number] CARDIAC 1 tablet 2 TIMES DAILY 1 tablet 2 TIMES DAILY (route: oral) Med Classific ation: Cardiovas cular Therapy Agents lisinopril 2.5 mg tablet 2023-10 00:00: 00 Yes [id number] HTN 1 tablet DAILY 1 tablet DAILY (route: oral) Med Classific ation: Cardiovas cular Therapy Agents methimazole 5 mg tablet 2023-10 00:00: 00 Yes [id number] THYROID 1 tablet DAILY 1 tablet DAILY (route: oral) Med Classific ation: Endocrine Protonix 40 mg tablet,jerel yed release 2023-10 00:00: 00 Yes [id number] GERD 1 tablet DAILY 1 tablet DAILY (route: oral) Med Classific ation: Gastroint estinal Therapy Agents ropinirole 3 mg tablet 2023-10 00:00: 00 Yes [id number] RLS 1 tablet BEDTIME 1 tablet BEDTIME (route: oral) Med Classific ation: Central Nervous System Agents tizanidine 4 mg tablet 2023-10 00:00: 00 Yes [id number] MUSCLE RELAXER 1 tablet 2 TIMES DAILY 1 tablet 2 TIMES DAILY (route: oral) Med Classific ation: Locomotor System trazodone 150 mg tablet 2023-10 00:00: 00 Yes [id number] SLEEP 1 tablet BEDTIME 1 tablet BEDTIME (route: oral) Med Classific ation: Central Nervous System Agents Vital Signs Vital Name Observation Time Observation Value Commen ts Temperature 2025-03-27 13:42:00.000 97.1 [degF] Temperature 2025-03-25 12:08:00.000 97.1 [degF] Temperature 2025-03-20 13:57:00.000 98.2 [degF] Temperature 2025-03-18 11:02:00.000 98.6 [degF] Temperature 2025-03-09 15:21:00.000 98.5 [degF] Temperature 2025-03-05 13:15:00.000 97.3 [degF] Pulse 2025-03-27 13:42:00.000 78 /min Pulse 2025-03-25 12:08:00.000 68 /min Pulse 2025-03-20 13:57:00.000 77 /min Pulse 2025-03-18 11:02:00.000 94 /min Pulse 2025-03-09 15:21:00.000 78 /min Pulse 2025-03-05 13:15:00.000 72 /min O2 Saturation (%) 2025-03-27 13:42:00.000 94 % O2 Saturation (%) 2025-03-25 12:08:00.000 96 % O2 Saturation (%) 2025-03-20 13:57:00.000 95 % O2 Saturation (%) 2025-03-18 11:02:00.000 94 % O2 Saturation (%) 2025-03-09 15:21:00.000 95 % O2 Saturation (%) 2025-03-05 13:15:00.000 97 % Respirations 2025-03-27 13:42:00.000 18 /min Respirations 2025-03-25 12:08:00.000 18 /min Respirations 2025-03-20 13:57:00.000 16 /min Respirations 2025-03-18 11:02:00.000 16 /min Respirations 2025-03-09 15:21:00.000 18 /min Respirations 2025-03-05 13:15:00.000 18 /min Systolic Blood Pressure 2025-03-27 13:42:00.000 144 mm [Hg] Systolic Blood Pressure 2025-03-25 12:08:00.000 134 mm [Hg] Systolic Blood Pressure 2025-03-20 13:57:00.000 142 mm [Hg] Systolic Blood Pressure 2025-03-18 11:02:00.000 110 mm [Hg] Systolic Blood Pressure 2025-03-09 15:21:00.000 128 mm [Hg] Systolic Blood Pressure 2025-03-05 13:15:00.000 132 mm [Hg] Diastolic Blood Pressure 2025-03-27 13:42:00.000 88 mm [Hg] Diastolic Blood Pressure 2025-03-25 12:08:00.000 86 mm [Hg] Diastolic Blood Pressure 2025-03-20 13:57:00.000 80 mm [Hg] Diastolic Blood Pressure 2025-03-18 11:02:00.000 60 mm [Hg] Diastolic Blood Pressure 2025-03-09 15:21:00.000 78 mm [Hg] Diastolic Blood Pressure 2025-03-05 13:15:00.000 86 mm [Hg] Plan of Treatment Planned Activity Planned Date Details Comments Future Scheduled Test RN TO OBSE RVE, ASSESS, EVALUATE, AND DEVELOP AN INDIVIDUALIZED PLAN OF CARE. AGENCY MAY ACCEPT ORDERS FROM CONSULTING PHYSICIANS YUSUF FLOWERS. RN TO OBSERVE AND ASSESS, RN PERIOPERATIVE/MIRROR FRAMER TO OBSERVE FOR RISK FOR FALLS AND INSTRUCT IN FALL PREVENTION, HOME SAFETY, MEDICATION MANAGEMENT, INFECTION PREVENTION, AND NUTRITION MANAGEMENT. RN/RN PERIOPERATIVE/MIRROR FRAMER NURSE MAY PERFORM O2 SATURATION LEVEL ON ADMISSION AND PRN FOR DYSPNEA FOR RN TO ASSESS/RN PERIOPERATIVE TO OBSERVE PATIENT, WITH NOTIFICATION TO THE PHYSICIAN IF SATURATION IS 90% IN THE ABSENCE OF MORE SPECIFIC PARAMETERS FROM THE PHYSICIAN. AGENCY MAY PERFORM A RESUMPTION OF CARE VISIT FOLLOWING ANY HOSPITAL ADMISSION. RN/RN PERIOPERATIVE/MIRROR FRAMER TO MONITOR CO-MORBID CONDITIONS LISTED ON THE PLAN OF CARE AND ANY NEW CONDITIONS THAT PRESENT THEMSELVES DURING THIS EPISODE TO IDENTIFY CHANGES AND INTERVENE TO MINIMIZE COMPLICATIONS. [code = RN TO OBSERVE, ASSESS, EVALUATE, AND DEVELOP AN INDIVIDUALIZED PLAN OF CARE. AGENCY MAY ACCEPT ORDERS FROM CONSULTING PHYSICIANS YUSUF FLOWERS. RN TO OBSERVE AND ASSESS, RN PERIOPERATIVE/MIRROR FRAMER TO OBSERVE FOR RISK FOR FALLS AND INSTRUCT IN FALL PREVENTION, HOME SAFETY, MEDICATION MANAGEMENT, INFECTION PREVENTION, AND NUTRITION MANAGEMENT. RN/RN PERIOPERATIVE/MIRROR FRAMER NURSE MAY PERFORM O2 SATURATION LEVEL ON ADMISSION AND PRN FOR DYSPNEA FOR RN TO ASSESS/RN PERIOPERATIVE TO OBSERVE PATIENT, WITH NOTIFICATION TO THE PHYSICIAN IF SATURATION IS 90% IN THE ABSENCE OF MORE SPECIFIC PARAMETERS FROM THE PHYSICIAN. AGENCY MAY PERFORM A RESUMPTION OF CARE VISIT FOLLOWING ANY HOSPITAL ADMISSION. RN/RN PERIOPERATIVE/MIRROR FRAMER TO MONITOR CO-MORBID CONDITIONS LISTED ON THE PLAN OF CARE AND ANY NEW CONDITIONS THAT PRESENT THEMSELVES DURING THIS EPISODE TO IDENTIFY CHANGES AND INTERVENE TO MINIMIZE COMPLICATIONS.] Future Scheduled Test RISK FOR H OSPITALIZATION; RN TO ASSESS/TEACH, MIRROR FRAMER/RN PERIOPERATIVE TO OBSERVE/TEACH PATIENT/CAREGIVER ON RISK FOR HOSPITALIZATION/EMERGENCY ROOM VISITS, TEACH SIGNS AND SYMPTOMS THAT PUT PATIENT AT RISK, WHEN TO NOTIFY NURSE/PHYSICIAN OF COMPLICATIONS/DECLINE, AND WHEN TO CALL 911. [code = RISK FOR HOSPITALIZATION; RN TO ASSESS/TEACH, MIRROR FRAMER/RN PERIOPERATIVE TO OBSERVE/TEACH PATIENT/CAREGIVER ON RISK FOR HOSPITALIZATION/EMERGENCY ROOM VISITS, TEACH SIGNS AND SYMPTOMS THAT PUT PATIENT AT RISK, WHEN TO NOTIFY NURSE/PHYSICIAN OF COMPLICATIONS/DECLINE, AND WHEN TO CALL 911.] Future Scheduled Test CARDIOVASC ULAR SYSTEM; RN TO ASSESS/TEACH, RN PERIOPERATIVE/MIRROR FRAMER TO OBSERVE/TEACH RELATED TO ALTERED CARDIOVASCULAR STATUS TO MINIMIZE COMPLICATIONS AND REDUCE HOSPITALIZATION. [code = CARDIOVASCULAR SYSTEM; RN TO ASSESS/TEACH, RN PERIOPERATIVE/MIRROR FRAMER TO OBSERVE/TEACH RELATED TO ALTERED CARDIOVASCULAR STATUS TO MINIMIZE COMPLICATIONS AND REDUCE HOSPITALIZATION.] Future Scheduled Test HYPERTENSI ON MANAGEMENT; RN TO ASSESS AND TEACH, RN PERIOPERATIVE/MIRROR FRAMER TO OBSERVE AND TEACH WARNING SIGNS AND SYMPTOMS TO AVOID HOSPITALIZATION. [code = HYPERTENSION MANAGEMENT; RN TO ASSESS AND TEACH, RN PERIOPERATIVE/MIRROR FRAMER TO OBSERVE AND TEACH WARNING SIGNS AND SYMPTOMS TO AVOID HOSPITALIZATION.] Future Scheduled Test RESPIRATOR Y SYSTEM MANAGEMENT; RN TO ASSESS AND TEACH, RN PERIOPERATIVE/MIRROR FRAMER TO OBSERVE AND TEACH RELATED TO ALTERED RESPIRATORY STATUS TO MINIMIZE COMPLICATIONS AND REDUCE HOSPITALIZATION. [code = RESPIRATORY SYSTEM MANAGEMENT; RN TO ASSESS AND TEACH, RN PERIOPERATIVE/MIRROR FRAMER TO OBSERVE AND TEACH RELATED TO ALTERED RESPIRATORY STATUS TO MINIMIZE COMPLICATIONS AND REDUCE HOSPITALIZATION.] Future Scheduled Test COPD MANAG EMENT; RN TO ASSESS AND TEACH, RN PERIOPERATIVE/MIRROR FRAMER TO OBSERVE AND TEACH SIGNS/SYMPTOMS OF COPD EXACERBATION AND PROVIDE EARLY INTERVENTIONS TO MINIMIZE RISK OF HOSPITALIZATION. RN/RN PERIOPERATIVE/MIRROR FRAMER TO INSTRUCT ON SELF-CARE MANAGEMENT INCLUDING BREATHING TECHNIQUES, AIRWAY CLEARANCE, AND PROPER USE OF COPD MEDICATIONS. RN TO ASSESS AND TEACH, RN PERIOPERATIVE/MIRROR FRAMER TO OBSERVE AND TEACH PATIENT/CAREGIVER ABILITY TO MONITOR AND RECORD VITAL SIGNS INCLUDING PULSE OXIMETRY AND BLOOD PRESSURE. PULSE OXIMETER AND BP MONITOR TO BE PROVIDED IF NEEDED [code = COPD MANAGEMENT; RN TO ASSESS AND TEACH, RN PERIOPERATIVE/MIRROR FRAMER TO OBSERVE AND TEACH SIGNS/SYMPTOMS OF COPD EXACERBATION AND PROVIDE EARLY INTERVENTIONS TO MINIMIZE RISK OF HOSPITALIZATION. RN/RN PERIOPERATIVE/MIRROR FRAMER TO INSTRUCT ON SELF-CARE MANAGEMENT INCLUDING BREATHING TECHNIQUES, AIRWAY CLEARANCE, AND PROPER USE OF COPD MEDICATIONS. RN TO ASSESS AND TEACH, RN PERIOPERATIVE/MIRROR FRAMER TO OBSERVE AND TEACH PATIENT/CAREGIVER ABILITY TO MONITOR AND RECORD VITAL SIGNS INCLUDING PULSE OXIMETRY AND BLOOD PRESSURE. PULSE OXIMETER AND BP MONITOR TO BE PROVIDED IF NEEDED ] Future Scheduled Test RN/RN PERIOPERATIVE/MIRROR FRAMER TO PERFORM/TEACH DIABETIC ULCER - NEUROPATHIC CARE TO PLANTAR RIGHT FOOT: CLEANSE WITH BETADINE SWABS, APPLY PURACOL, MAY APPLY SKIN BARRIER TO PERIWOUND AREA PRN TO PREVENT SKIN MACERATION AND PROTECT PERIWOUND COVER WITH KERLIX SECURE WITH REILLY WRAP. CHANGE DRESSING EVERY DAY AND PRN FOR DISLODGED DRESSING. CAREGIVER TO CHANGE BETWEEN SN VISITS [code = RN/RN PERIOPERATIVE/MIRROR FRAMER TO PERFORM/TEACH DIABETIC ULCER - NEUROPATHIC CARE TO PLANTAR RIGHT FOOT: CLEANSE WITH BETADINE SWABS, APPLY PURACOL, MAY APPLY SKIN BARRIER TO PERIWOUND AREA PRN TO PREVENT SKIN MACERATION AND PROTECT PERIWOUND COVER WITH KERLIX SECURE WITH REILLY WRAP. CHANGE DRESSING EVERY DAY AND PRN FOR DISLODGED DRESSING. CAREGIVER TO CHANGE BETWEEN SN VISITS ] Future Scheduled Test PAIN MANAG EMENT; RN TO ASSESS AND TEACH, MIRROR FRAMER/RN PERIOPERATIVE TO OBSERVE AND TEACH AND PROVIDE EDUCATION ON PAIN MANAGEMENT TECHNIQUES. [code = PAIN MANAGEMENT; RN TO ASSESS AND TEACH, MIRROR FRAMER/RN PERIOPERATIVE TO OBSERVE AND TEACH AND PROVIDE EDUCATION ON PAIN MANAGEMENT TECHNIQUES.] Future Scheduled Test DIABETES M ANAGEMENT; RN TO ASSESS AND TEACH, MIRROR FRAMER/RN PERIOPERATIVE TO OBSERVE AND TEACH INSTRUCTIONS OF DIABETIC CARE TO INCLUDE: DIET LOW CARB, SKIN CARE, SIGNS AND SYMPTOMS OF HYPO/HYPERGLYCEMIA, PROPER ADMINISTRATION OF DIABETIC MEDICATION. RN/MIRROR FRAMER/RN PERIOPERATIVE TO INSTRUCT ON DIABETIC FOOT CARE AND MONITOR FOR SKIN LESIONS ON LOWER EXTREMITIES. BLOOD GLUCOSE TESTING DAILY FREQ. RN TO ASSESS AND TEACH, MIRROR FRAMER/RN PERIOPERATIVE TO OBSERVE AND TEACH PATIENT/CAREGIVER ABILITY TO PERFORM AND RECORD BLOOD GLUCOSE TESTING ORDERED AND TO REPORT ABNORMAL FINDINGS TO PHYSICIAN. RN/MIRROR FRAMER/RN PERIOPERATIVE MAY PERFORM BLOOD GLUCOSE TEST NEEDED. RN/MIRROR FRAMER/RN PERIOPERATIVE TO REPORT TO PHYSICIAN BLOOD GLUCOSE READINGS GREATER THAN 400 OR LESS THAN 60 RN/MIRROR FRAMER/RN PERIOPERATIVE TO INSTRUCT PATIENT ON IMPORTANCE OF HGBA1C MONITORING, KIDNEY FUNCTION TEST, EYE AND FOOT EXAMS. [code = DIABETES MANAGEMENT; RN TO ASSESS AND TEACH, MIRROR FRAMER/RN PERIOPERATIVE TO OBSERVE AND TEACH INSTRUCTIONS OF DIABETIC CARE TO INCLUDE: DIET LOW CARB, SKIN CARE, SIGNS AND SYMPTOMS OF HYPO/HYPERGLYCEMIA, PROPER ADMINISTRATION OF DIABETIC MEDICATION. RN/MIRROR FRAMER/RN PERIOPERATIVE TO INSTRUCT ON DIABETIC FOOT CARE AND MONITOR FOR SKIN LESIONS ON LOWER EXTREMITIES. BLOOD GLUCOSE TESTING DAILY FREQ. RN TO ASSESS AND TEACH, MIRROR FRAMER/RN PERIOPERATIVE TO OBSERVE AND TEACH PATIENT/CAREGIVER ABILITY TO PERFORM AND RECORD BLOOD GLUCOSE TESTING ORDERED AND TO REPORT ABNORMAL FINDINGS TO PHYSICIAN. RN/MIRROR FRAMER/RN PERIOPERATIVE MAY PERFORM BLOOD GLUCOSE TEST NEEDED. RN/MIRROR FRAMER/RN PERIOPERATIVE TO REPORT TO PHYSICIAN BLOOD GLUCOSE READINGS GREATER THAN 400 OR LESS THAN 60 RN/MIRROR FRAMER/RN PERIOPERATIVE TO INSTRUCT PATIENT ON IMPORTANCE OF HGBA1C MONITORING, KIDNEY FUNCTION TEST, EYE AND FOOT EXAMS.] Future Scheduled Test FALL REDUC TION MANAGEMENT; RN TO ASSESS AND OBSERVE, RN PERIOPERATIVE/MIRROR FRAMER TO OBSERVE FALL RISK FACTORS AND EDUCATE PATIENT/CAREGIVER ON STRATEGIES TO MINIMIZE THE RISK OF FALLING. [code = FALL REDUCTION MANAGEMENT; RN TO ASSESS AND OBSERVE, RN PERIOPERATIVE/MIRROR FRAMER TO OBSERVE FALL RISK FACTORS AND EDUCATE PATIENT/CAREGIVER ON STRATEGIES TO MINIMIZE THE RISK OF FALLING.] Future Scheduled Test PRN VISITS ; NUMBER OF RN/RN PERIOPERATIVE/MIRROR FRAMER VISITS: 2 RN/RN PERIOPERATIVE/MIRROR FRAMER TO PERFORM: WOUND CARE FOR THE FOLLOWING REASONS: WOUND INFECTION, ODOR, INCREASED DRAINAGE [code = PRN VISITS; NUMBER OF RN/RN PERIOPERATIVE/MIRROR FRAMER VISITS: 2 RN/RN PERIOPERATIVE/MIRROR FRAMER TO PERFORM: WOUND CARE FOR THE FOLLOWING REASONS: WOUND INFECTION, ODOR, INCREASED DRAINAGE ] Goal 2024-10-23 Patient Goal - TO HEEL MY WO UND Goal 2024-12-20 Patient Goal - TO HEEL MY WO UND Goal 2025-02-18 Patient Goal - TO HEEL MY WO UND Goal Patient Goal - TO HEEL MY WO UND Goal Provider Goal - A PLAN OF CARE WILL BE ESTABLISHED THAT MEETS THE PATIENTS NEEDS. PATIENT WILL DEMONSTRATE OXYGEN SATURATION WITHIN NORMAL LIMITS OR PATIENTS OPTIMAL LEVEL ESTABLISHED BY THE PHYSICIAN THROUGHOUT CARE. CHANGES TO CO-MORBID CONDITIONS AND ANY NEW CONDITIONS WILL BE IDENTIFIED AND REPORTED TO THE PHYSICIAN. Goal Provider Goal - PATIENT/CAREGIVER WILL VERBALIZE UNDERSTANDING OF SIGNS AND SYMPTOMS THAT PUT THE PATIENT AT RISK FOR HOSPITALIZATION /EMERGENCY ROOM VISITS, WHEN TO NOTIFY NURSE/PHYSICIAN OF COMPLICATIONS/DECLINE AND WHEN TO CALL 911. Goal Provider Goal - PATIENT / CAREGIVER WILL VERBALIZE/DEMONSTRATE UNDERSTANDING OF MEASURES TO MANAGE ALTERED CARDIOVASCULAR STATUS BY WEEK OF 04/19/25 Goal Provider Goal - PATIENT / CAREGIVER WILL VERBALIZE/DEMONSTRATE AN ABILITY TO ADHERE TO SELF-MANAGEMENT OF HTN TO MINIMIZE COMPLICATIONS AND AVOID HOSPITALIZATION BY WEEK OF 04/19/25 Goal Provider Goal - PATIENT / CAREGIVER WILL VERBALIZE/DEMONSTRATE UNDERSTANDING OF MEASURES TO MANAGE ALTERED RESPIRATORY STATUS BY WEEK OF 04/19/25 Goal Provider Goal - PATIENT / CAREGIVER WILL VERBALIZE/DEMONSTRATE AN ABILITY TO ADHERE TO SELF-MANAGEMENT OF COPD TO MINIMIZE COMPLICATIONS AND AVOID HOSPITALIZATION BY WEEK OF 04/19/25 Goal Provider Goal - PATIENT / CAREGIVER WILL VERBALIZE UNDERSTANDING OF DIABETIC ULCER - NEUROPATHIC CARE INCLUDING BUT NOT LIMITED TO DEFINITION, SIGNS AND SYMPTOMS OF COMPLICATIONS AND PRESCRIBED TREATMENT REGIME BY WEEK OF 04/19/25 Goal Provider Goal - PATIENT / CAREGIVER WILL VERBALIZE / DEMONSTRATE UNDERSTANDING OF PAIN CONTROL MEASURES BY WEEK OF 04/19/25 Goal Provider Goal - ATIENT / CAREGIVER WILL VERBALIZE / DEMONSTRATE AN ABILITY TO ADHERE TO SELF-MANAGEMENT OF DIABETES MANAGEMENT BY 04/19/2025. Goal Provider Goal - PATIENT/CAREGIVER WILL VERBALIZE/DEMONSTRATE UNDERSTANDING OF FALL RISK FACTORS AND IMPLEMENT STRATEGIES TO MINIMIZE FALL RISK. PATIENT/CAREGIVER WILL VERBALIZE/DEMONSTRATE AN ABILITY TO ADHERE TO FALL REDUCTION SELF-MANAGEMENT AND LIFE-STYLE CHANGES BY WEEK OF 04/19/25 Goal Provider Goal - Encounters Start Date/Time End Date/Time Encounter Type Admission Type Attending [facility] Care Department Encounter ID Discharge Date Discharge Status Discharge Condition Discharge Reason Percent Goals Met 2025-02-22 00:00:00 2025-04-22 00:00:00 Outpatient RECERTIFIC [facility] [id number] 15.38
--- OUTSIDE RECORDS SUMMARY | 2025-04-21 20:00 | XMS_ITS | Clinical Summary ---
Author Organization Unknown Care Team Providers Care Orange Picker Machine Operator Name Role Phone LEONID DPM, ORA Unavailable Unavailable STEPHY RN, ALINE Unavailable Unavailable JULIA ARZATEN, ASHELY Unavailable Unavaillisa BATEMAN OT, MITZI Unavailable Unavailable EWA RN, JOHN Unavailable Unavailable CARINA TUCKER/TEMO, JAYLAN Unavailable Un available Payers Payer Name Policy Type Policy Number Effective Date Expira tion Date [employer].MA.[employer].C.AUTH [id number] CAREN.[facility].MA.C.AUTH [id number] ADMISSIONS.CODEREQUEST.[employer] US.AUTH [id number] Problems Condition Name Condition Details Condition Category [...] 00 DEPRESSION, UNSPECIFIED Active 10-01 00:00: 00 USP (CURRENT) USE OF INSULIN Active 10-01 00:00: [...] 40 mg tablet 2023-10 00:00: 00 Yes [id number] DEPRESSION 1 tablet DAILY 1 tablet DAILY (route: oral) Med Classific ation: Central Nervous System Agents Coreg 25 mg tablet 2023-10 00:00: 00 Yes [id number] CARDIAC 1 tablet 2 TIMES DAILY 1 tablet 2 TIMES DAILY (route: oral) Med Classific ation: Cardiovas cular Therapy Agents duloxetine 30 mg capsule,del ayed release 2023-10 00:00: 00 Yes [id number] DEPRESSION 1 capsule DAILY 1 capsule DAILY (route: oral) Med Classific ation: Central Nervous System Agents fenofibrate 54 mg tablet 2023-10 00:00: 00 Yes [id number] CARDIAC 1 tablet DAILY 1 tablet DAILY (route: oral) Med Classific ation: Cardiovas cular Therapy Agents furosemide 40 mg tablet 2023-10 00:00: 00 Yes [id number] CARDIAC 1 tablet DAILY 1 tablet DAILY (route: oral) Med Classific ation: Cardiovas cular Therapy Agents gabapentin 800 mg tablet 2023-10 00:00: 00 Yes [id number] PAIN 1 tablet 3 TIMES DAILY 1 tablet 3 TIMES DAILY (route: oral) Med Classific ation: Central Nervous System Agents hydroxyzine HCl 25 mg tablet 2023-10 00:00: 00 Yes [id number] ANXIETY 1 tablet 3 TIMES DAILY 1 tablet 3 TIMES DAILY (route: oral) Med Classific ation: Central Nervous System Agents insulin glargine (U-300) conc. 300 unit/mL (3 mL) subcutaneou s pen 2023-10 00:00: 00 Yes [id number] DM 10 unit BEDTIME 10 unit BEDTIME (route: subcutaneo us) Med Classific ation: Endocrine isosorbide dinitrate 30 mg tablet 2023-10 00:00: 00 Yes [id number] CARDIAC 1 tablet 2 TIMES DAILY 1 tablet 2 TIMES DAILY (route: oral) Med Classific ation: Cardiovas cular Therapy Agents lisinopril 2.5 mg tablet 2023-10 00:00: 00 Yes [id number] HTN 1 tablet DAILY 1 tablet DAILY (route: oral) Med Classific ation: Cardiovas cular Therapy Agents methimazole 5 mg tablet 2023-10 00:00: 00 Yes [id number] THYROID 1 tablet DAILY 1 tablet DAILY (route: oral) Med Classific ation: Endocrine Protonix 40 mg tablet,jerel yed release 2023-10 00:00: 00 Yes [id number] GERD 1 tablet DAILY 1 tablet DAILY (route: oral) Med Classific ation: Gastroint estinal Therapy Agents ropinirole 3 mg tablet 2023-10 00:00: 00 Yes [id number] RLS 1 tablet BEDTIME 1 tablet BEDTIME (route: oral) Med Classific ation: Central Nervous System Agents tizanidine 4 mg tablet 2023-10 00:00: 00 Yes [id number] MUSCLE RELAXER 1 tablet 2 TIMES DAILY 1 tablet 2 TIMES DAILY (route: oral) Med Classific ation: Locomotor System trazodone 150 mg tablet 2023-10 00:00: 00 Yes [id number] SLEEP 1 tablet BEDTIME 1 tablet BEDTIME [...] YUSUF FLOWERS. RN TO OBSERVE AND ASSESS, OPERATOR CAT[employer] CONCENTRATION/DATABASE MARKETING SPECIALIST TO OBSERVE FOR RISK FOR FALLS AND INSTRUCT IN FALL PREVENTION, HOME SAFETY, MEDICATION MANAGEMENT, INFECTION PREVENTION, AND NUTRITION MANAGEMENT. RN/OPERATOR CAT[employer] CONCENTRATION/DATABASE MARKETING SPECIALIST NURSE MAY PERFORM O2 SATURATION LEVEL ON ADMISSION AND PRN FOR DYSPNEA FOR RN TO ASSESS/OPERATOR CAT[employer] CONCENTRATION TO OBSERVE PATIENT, WITH NOTIFICATION TO THE PHYSICIAN IF SATURATION IS 90% IN THE ABSENCE OF MORE SPECIFIC PARAMETERS FROM THE PHYSICIAN. AGENCY MAY PERFORM A RESUMPTION OF CARE VISIT FOLLOWING ANY HOSPITAL ADMISSION. RN/OPERATOR CAT[employer] CONCENTRATION/DATABASE MARKETING SPECIALIST TO MONITOR CO-MORBID CONDITIONS LISTED ON THE PLAN OF CARE AND ANY NEW CONDITIONS THAT PRESENT THEMSELVES DURING THIS EPISODE TO IDENTIFY CHANGES AND INTERVENE TO MINIMIZE COMPLICATIONS. [code = RN TO OBSERVE, ASSESS, EVALUATE, AND DEVELOP AN INDIVIDUALIZED PLAN OF CARE. AGENCY MAY ACCEPT ORDERS FROM CONSULTING PHYSICIANS YUSUF FLOWERS. RN TO OBSERVE AND ASSESS, OPERATOR CATAL[employer]ST CONCENTRATION/DATABASE MARKETING SPECIALIST TO OBSERVE FOR RISK FOR FALLS AND INSTRUCT IN FALL PREVENTION, HOME SAFETY, MEDICATION MANAGEMENT, INFECTION PREVENTION, AND NUTRITION MANAGEMENT. RN/OPERATOR CAT[employer] CONCENTRATION/DATABASE MARKETING SPECIALIST NURSE MAY PERFORM O2 SATURATION LEVEL ON ADMISSION AND PRN FOR DYSPNEA FOR RN TO ASSESS/OPERATOR [employer] CONCENTRATION TO OBSERVE PATIENT, WITH NOTIFICATION TO THE PHYSICIAN IF SATURATION IS 90% IN THE ABSENCE OF MORE SPECIFIC PARAMETERS FROM THE PHYSICIAN. AGENCY MAY PERFORM A RESUMPTION OF CARE VISIT FOLLOWING ANY HOSPITAL ADMISSION. RN/OPERATOR CAT[employer] CONCENTRATION/DATABASE MARKETING SPECIALIST TO MONITOR CO-MORBID CONDITIONS LISTED ON THE PLAN OF CARE AND ANY NEW CONDITIONS THAT PRESENT THEMSELVES DURING THIS EPISODE TO IDENTIFY CHANGES AND INTERVENE TO MINIMIZE COMPLICATIONS.] Future Scheduled Test RISK FOR H OSPITALIZATION; RN TO ASSESS/TEACH, DATABASE MARKETING SPECIALIST/OPERATOR [employer] CONCENTRATION TO OBSERVE/TEACH PATIENT/CAREGIVER ON RISK FOR HOSPITALIZATION/EMERGENCY ROOM VISITS, TEACH SIGNS AND SYMPTOMS THAT PUT PATIENT AT RISK, WHEN TO NOTIFY NURSE/PHYSICIAN OF COMPLICATIONS/DECLINE, AND WHEN TO CALL 911. [code = RISK FOR HOSPITALIZATION; RN TO ASSESS/TEACH, DATABASE MARKETING SPECIALIST/OPERATOR [employer] CONCENTRATION TO OBSERVE/TEACH PATIENT/CAREGIVER ON RISK FOR HOSPITALIZATION/EMERGENCY ROOM VISITS, TEACH SIGNS AND SYMPTOMS THAT PUT PATIENT AT RISK, WHEN TO NOTIFY NURSE/PHYSICIAN OF COMPLICATIONS/DECLINE, AND WHEN TO CALL 911.] Future Scheduled Test CARDIOVASC ULAR SYSTEM; RN TO ASSESS/TEACH, OPERATOR CAT[employer] CONCENTRATION/DATABASE MARKETING SPECIALIST TO OBSERVE/TEACH RELATED TO ALTERED CARDIOVASCULAR STATUS TO MINIMIZE COMPLICATIONS AND REDUCE HOSPITALIZATION. [code = CARDIOVASCULAR SYSTEM; RN TO ASSESS/TEACH, OPERATOR [employer] CONCENTRATION/DATABASE MARKETING SPECIALIST TO OBSERVE/TEACH RELATED TO ALTERED CARDIOVASCULAR STATUS TO MINIMIZE COMPLICATIONS AND REDUCE HOSPITALIZATION.] Future Scheduled Test HYPERTENSI ON MANAGEMENT; RN TO ASSESS AND TEACH, OPERATOR CAT[employer] CONCENTRATION/DATABASE MARKETING SPECIALIST TO OBSERVE AND TEACH WARNING SIGNS AND SYMPTOMS TO AVOID HOSPITALIZATION. [code = HYPERTENSION MANAGEMENT; RN TO ASSESS AND TEACH, OPERATOR [employer] CONCENTRATION/DATABASE MARKETING SPECIALIST TO OBSERVE AND TEACH WARNING SIGNS AND SYMPTOMS TO AVOID HOSPITALIZATION.] Future Scheduled Test RESPIRATOR Y SYSTEM MANAGEMENT; RN TO ASSESS AND TEACH, OPERATOR CAT[employer] CONCENTRATION/DATABASE MARKETING SPECIALIST TO OBSERVE AND TEACH RELATED TO ALTERED RESPIRATORY STATUS TO MINIMIZE COMPLICATIONS AND REDUCE HOSPITALIZATION. [code = RESPIRATORY SYSTEM MANAGEMENT; RN TO ASSESS AND TEACH, OPERATOR CAT[employer] CONCENTRATION/DATABASE MARKETING SPECIALIST TO OBSERVE AND TEACH RELATED TO ALTERED RESPIRATORY STATUS TO MINIMIZE COMPLICATIONS AND REDUCE HOSPITALIZATION.] Future Scheduled Test COPD MANAG EMENT; RN TO ASSESS AND TEACH, OPERATOR CAT[employer] CONCENTRATION/DATABASE MARKETING SPECIALIST TO OBSERVE AND TEACH SIGNS/SYMPTOMS OF COPD EXACERBATION AND PROVIDE EARLY INTERVENTIONS TO MINIMIZE RISK OF HOSPITALIZATION. RN/OPERATOR CAT[employer] CONCENTRATION/DATABASE MARKETING SPECIALIST TO INSTRUCT ON SELF-CARE MANAGEMENT INCLUDING BREATHING TECHNIQUES, AIRWAY CLEARANCE, AND PROPER USE OF COPD MEDICATIONS. RN TO ASSESS AND TEACH, OPERATOR [employer] CONCENTRATION/DATABASE MARKETING SPECIALIST TO OBSERVE AND TEACH PATIENT/CAREGIVER ABILITY TO MONITOR AND RECORD VITAL SIGNS INCLUDING PULSE OXIMETRY AND BLOOD PRESSURE. PULSE OXIMETER AND BP MONITOR TO BE PROVIDED IF NEEDED [code = COPD MANAGEMENT; RN TO ASSESS AND TEACH, OPERATOR CAT[employer] CONCENTRATION/DATABASE MARKETING SPECIALIST TO OBSERVE AND TEACH SIGNS/SYMPTOMS OF COPD EXACERBATION AND PROVIDE EARLY INTERVENTIONS TO MINIMIZE RISK OF HOSPITALIZATION. RN/OPERATOR CAT[employer] CONCENTRATION/DATABASE MARKETING SPECIALIST TO INSTRUCT ON SELF-CARE MANAGEMENT INCLUDING BREATHING TECHNIQUES, AIRWAY CLEARANCE, AND PROPER USE OF COPD MEDICATIONS. RN TO ASSESS AND TEACH, OPERATOR CATAL[employer] CONCENTRATION/DATABASE MARKETING SPECIALIST TO OBSERVE AND TEACH PATIENT/CAREGIVER ABILITY TO MONITOR AND RECORD VITAL SIGNS INCLUDING PULSE OXIMETRY AND BLOOD PRESSURE. PULSE OXIMETER AND BP MONITOR TO BE PROVIDED IF NEEDED ] Future Scheduled Test RN/OPERATOR CATALYST CONCENTRATION/DATABASE MARKETING SPECIALIST TO PERFORM/TEACH DIABETIC ULCER - NEUROPATHIC CARE TO PLANTAR RIGHT FOOT: CLEANSE WITH BETADINE SWABS, APPLY PURACOL, MAY APPLY SKIN BARRIER TO PERIWOUND AREA PRN TO PREVENT SKIN MACERATION AND PROTECT PERIWOUND COVER WITH KERLIX SECURE WITH REILLY WRAP. CHANGE DRESSING EVERY DAY AND PRN FOR DISLODGED DRESSING. CAREGIVER TO CHANGE BETWEEN SN VISITS [code = RN/OPERATOR CAT[employer] CONCENTRATION/DATABASE MARKETING SPECIALIST TO PERFORM/TEACH DIABETIC ULCER - NEUROPATHIC CARE [...] MANAG EMENT; RN TO ASSESS AND TEACH, DATABASE MARKETING SPECIALIST/OPERATOR [employer] CONCENTRATION TO OBSERVE AND TEACH AND PROVIDE EDUCATION ON PAIN MANAGEMENT TECHNIQUES. [code = PAIN MANAGEMENT; RN TO ASSESS AND TEACH, DATABASE MARKETING SPECIALIST/OPERATOR [employer] CONCENTRATION TO OBSERVE AND TEACH AND PROVIDE EDUCATION ON PAIN MANAGEMENT TECHNIQUES.] Future Scheduled Test DIABETES M ANAGEMENT; RN TO ASSESS AND TEACH, DATABASE MARKETING SPECIALIST/OPERATOR CAT[employer] CONCENTRATION TO OBSERVE AND TEACH INSTRUCTIONS OF DIABETIC CARE TO INCLUDE: DIET LOW CARB, SKIN CARE, SIGNS AND SYMPTOMS OF HYPO/HYPERGLYCEMIA, PROPER ADMINISTRATION OF DIABETIC MEDICATION. RN/DATABASE MARKETING SPECIALIST/OPERATOR CAT[employer]ST CONCENTRATION TO INSTRUCT ON DIABETIC FOOT CARE AND MONITOR FOR SKIN LESIONS ON LOWER EXTREMITIES. BLOOD GLUCOSE TESTING DAILY FREQ. RN TO ASSESS AND TEACH, DATABASE MARKETING SPECIALIST/OPERATOR CAT[employer] CONCENTRATION TO OBSERVE AND TEACH PATIENT/CAREGIVER ABILITY TO PERFORM AND RECORD BLOOD GLUCOSE TESTING ORDERED AND TO REPORT ABNORMAL FINDINGS TO PHYSICIAN. RN/DATABASE MARKETING SPECIALIST/OPERATOR CAT[employer] CONCENTRATION MAY PERFORM BLOOD GLUCOSE TEST NEEDED. RN/DATABASE MARKETING SPECIALIST/OPERATOR CATALY[employer] CONCENTRATION TO REPORT TO PHYSICIAN BLOOD GLUCOSE READINGS GREATER THAN 400 OR LESS THAN 60 RN/DATABASE MARKETING SPECIALIST/OPERATOR CATALYST CONCENTRATION TO INSTRUCT PATIENT ON IMPORTANCE OF HGBA1C MONITORING, KIDNEY FUNCTION TEST, EYE AND FOOT EXAMS. [code = DIABETES MANAGEMENT; RN TO ASSESS AND TEACH, DATABASE MARKETING SPECIALIST/OPERATOR CATALYST CONCENTRATION TO OBSERVE AND TEACH INSTRUCTIONS OF DIABETIC CARE TO INCLUDE: DIET LOW CARB, SKIN CARE, SIGNS AND SYMPTOMS OF HYPO/HYPERGLYCEMIA, PROPER ADMINISTRATION OF DIABETIC MEDICATION. RN/DATABASE MARKETING SPECIALIST/OPERATOR CATALYST CONCENTRATION TO INSTRUCT ON DIABETIC FOOT CARE AND MONITOR FOR SKIN LESIONS ON LOWER EXTREMITIES. BLOOD GLUCOSE TESTING DAILY FREQ. RN TO ASSESS AND TEACH, DATABASE MARKETING SPECIALIST/OPERATOR CATALYST CONCENTRATION TO OBSERVE AND TEACH PATIENT/CAREGIVER ABILITY TO PERFORM AND RECORD BLOOD GLUCOSE TESTING ORDERED AND TO REPORT ABNORMAL FINDINGS TO PHYSICIAN. RN/DATABASE MARKETING SPECIALIST/OPERATOR CATALYST CONCENTRATION MAY PERFORM BLOOD GLUCOSE TEST NEEDED. RN/DATABASE MARKETING SPECIALIST/OPERATOR CATALYST CONCENTRATION TO REPORT TO PHYSICIAN BLOOD GLUCOSE READINGS GREATER THAN 400 OR LESS THAN 60 RN/DATABASE MARKETING SPECIALIST/OPERATOR CATALYST CONCENTRATION TO INSTRUCT PATIENT ON IMPORTANCE OF HGBA1C MONITORING, KIDNEY FUNCTION TEST, EYE AND FOOT EXAMS.] Future Scheduled Test FALL REDUC TION MANAGEMENT; RN TO ASSESS AND OBSERVE, OPERATOR CATALYST CONCENTRATION/DATABASE MARKETING SPECIALIST TO OBSERVE FALL RISK FACTORS AND EDUCATE PATIENT/CAREGIVER ON STRATEGIES TO MINIMIZE THE RISK OF FALLING. [code = FALL REDUCTION MANAGEMENT; RN TO ASSESS AND OBSERVE, OPERATOR CATALYST CONCENTRATION/DATABASE MARKETING SPECIALIST TO OBSERVE FALL RISK FACTORS AND EDUCATE PATIENT/CAREGIVER ON STRATEGIES TO MINIMIZE THE RISK OF FALLING.] Future Scheduled Test PRN VISITS ; NUMBER OF RN/OPERATOR CATALYST CONCENTRATION/DATABASE MARKETING SPECIALIST VISITS: 2 RN/OPERATOR CAT[employer] CONCENTRATION/DATABASE MARKETING SPECIALIST TO PERFORM: WOUND CARE FOR THE FOLLOWING REASONS: WOUND INFECTION, ODOR, INCREASED DRAINAGE [code = PRN VISITS; NUMBER OF RN/OPERATOR CATALYST CONCENTRATION/DATABASE MARKETING SPECIALIST VISITS: 2 RN/OPERATOR CATALYST CONCENTRATION/DATABASE MARKETING SPECIALIST TO PERFORM: WOUND CARE FOR THE FOLLOWING [...] End Date/Time Encounter Type Admission Type Attending [facility] Care Department Encounter ID Discharge Date Discharge Status Discharge Condition Discharge Reason Percent Goals Met 2025-02-22 00:00:00 2025-04-22 00:00:00 Outpatient RECERTIFIC ATJOHN VALENZUELA [facility] [id number] 15.38
== END 2025-04-06 23:59 | disposition home or self-care (01) ==
LOC: LAB 12:04
PROVIDERS: PCP Nurse Practitioner; Visit Provider Podiatrist
DX: E11.621 Type 2 diabetes mellitus with foot ulcer (principal); L97.519 Non-pressure chronic ulcer of other part of right foot with unspecified severity; M86.671 Other chronic osteomyelitis, right ankle and foot; L03.115 Cellulitis of right lower limb; Z89.9 Acquired absence of limb, unspecified; Z98.890 Other specified postprocedural states
CPT/HCPCS: 36415; 73630; 80053; 83036; 84550; 85025; 85651; 86140; 87070; 87077; 87205

== ENCOUNTER 2025-04-07 08:01 | Day surgery (SDC) | payer MEDICARE, OTHER, SELFPAY ==
[2025-04-06 15:59] VITALS: BMI 40.5
--- NOTE | 2025-04-07 08:44 | SUR.PREOP ---
Pt came without a ride for procedure. Stated her ride doesn't get off of work until 11am and cant get here any sooner D/t receiving sedation and not having a caregiver/driver/guide present, decision was made between patient and this RN to reschedule procedure when she has a ride available and able to stay for the duration of procedure. Donaldo's office called and this RN spoke to Louann who would call pt to reschedule.
== END 2025-04-07 08:44 ==
PROVIDERS: PCP Nurse Practitioner; Visit Provider Ophthalmology
DX: E11.36 Type 2 diabetes mellitus with diabetic cataract (principal); H25.812 Combined forms of age-related cataract, left eye; Z53.8 Procedure and treatment not carried out for other reasons; Z59.82 Transportation insecurity; Z97.3 Presence of spectacles and contact lenses; E78.00 Pure hypercholesterolemia, unspecified; E03.9 Hypothyroidism, unspecified; F17.210 Nicotine dependence, cigarettes, uncomplicated; F41.9 Anxiety disorder, unspecified; M19.90 Unspecified osteoarthritis, unspecified site; E11.319 Type 2 diabetes mellitus with unspecified diabetic retinopathy without macular edema; F32.A Depression, unspecified; J44.9 Chronic obstructive pulmonary disease, unspecified; K21.9 Gastro-esophageal reflux disease without esophagitis; I10 Essential (primary) hypertension; Z88.6 Allergy status to analgesic agent; Z88.1 Allergy status to other antibiotic agents; Z79.899 Other long term (current) drug therapy; Z79.4 Long term (current) use of insulin; Z79.85 Long-term (current) use of injectable non-insulin antidiabetic drugs; Z88.8 Allergy status to other drugs, medicaments and biological substances; Z98.41 Cataract extraction status, right eye; Z96.1 Presence of intraocular lens

== ENCOUNTER 2025-04-10 11:43 | Day surgery (SDC) | payer MEDICARE, OTHER, SELFPAY ==
[2025-04-10 11:51] VITALS: BP 137/62; PULSE 72; RESP 18; O2SAT 95; BMI 41.0
--- NOTE | 2025-04-10 12:04 | EXP.PM.HP ---
History of Present Illness *Admission Date: 04/10/25 *Reason for visit:: Intrathecal refill; DDD *History of present illness: Same [facility] Disclaimer: The information contained in this section may have been updated after the patient was seen, as this information can be updated by other users. Medical History Pre-ulcerative calluses Ingrown toenail of left foot Intractable neuropathic pain of right lower extremity Skin change Decreased pedal pulses Diabetic foot ulcer Pain in both feet Viral upper respiratory tract infection Leg pain Anxiety about health Moderate depressive disorder Cellulitis Patient left without being seen Chronic pain disorder Lumbar radiculopathy, acute Neuropathic pain Hyperglycemia Hypothyroidism Other forms of angina pectoris Other specified depressive episodes Neuralgia and neuritis Hypertension with goal to be determined Anxiety with somatization Vitamin D deficiency Microalbuminuria Keratosis Callus of foot Onychodystrophy Onychoincurvatum Bronchitis Angina at rest Right flank pain Chest pain Presence of intrathecal pump Excess skin of arm bilateral removal Encounter for wound care 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 Type 2 diabetes mellitus Diabetic foot Surgical History Total knee replacement status bilateral Family History Other Family history of COPD (chronic obstructive pulmonary disease) Family history of cancer Family history of diabetes mellitus type II Family history of hypertension Family history of myocardial infarction Social History Smoking Status: Current some day smoker tobacco type: cigarettes packs per day: 1 second hand exposure: Yes alcohol intake: never substance use type: denies use current occupational status: other Travel in the last 8 weeks?: None household members: friend(s) housing: house lives independently: Yes marital status: single education level: high school 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 caffeine: Yes special heather needs: No agree to transfusion: No do you feel safe at home: Yes victim of physical abuse: No victim of emotional abuse: No victim of sexual abuse: No would you like helpful sources: No Have you lived/traveled outside US in past 30 days?: No Contact w/someone who lives/traveled outside US past 30 days?: No Exposure to someone with infectious disease in past 14 days?: No Do you have a fever (greater than 100.4 F or 38 C)?: No Have you tested positive for COVID-19?: No Exposed to someone with COVID-19 in past 14 days?: No Do you have a sore throat?: No Do you have a cough?: No Do you have any weakness?: No Do you have any diarrhea?: No Are you experiencing any unusual bleeding?: No Do you have any muscle aches/pain?: No Do you have any abdominal pain?: No Are you experiencing loss of taste or smell?: No Other Medical History Have you received the Flu Vaccine for this season: No Have you received the Pneumonia Vaccine: No Review of Systems Review of Systems Review of systems:: pertinent systems reviewed and negative unless documented below Review of systems (narrative): Review of Systems: General: No recent weight changes, no fever, no sleep disturbances Respiratory: No cough, no shortness of air, no recurring pulmonary infections Cardiovascular/peripheral vascular: No chest pain, no palpitations, no edema, no shortness of breath Gastrointestinal: No new onset incontinence, normal bowel movements reported Genitourinary: No new onset incontinence Musculoskeletal: Chronic pain Psychiatric: [Normal mood/affect] Neurological: [Denies weakness in extremities], [denies balance issues] Meds Home Medications and Allergies Home Medications ?Medication ?Instructions ?Recorded ?Confirmed ?Type flash glucose sensor 05/04/22 04/10/25 History flash glucose scanning reader 08/14/22 04/10/25 History ([employer]erv Joelle 14 Day Tolstoy) carvedilol 25 mg tablet 25 mg PO BID High blood pressure 02/15/23 04/10/25 Rx 90 days #180 tabs fenofibrate 54 mg tablet 54 mg PO DAILY Cholesterol #90 tabs 02/15/23 04/10/25 Rx insulin glargine 100 unit/mL (3 10 unit (0.1 mL) SQ HS Diabetes 02/15/23 04/10/25 Rx mL) subcutaneous pen #15 mL lisinopril 2.5 mg tablet 2.5 mg PO DAILY Hypertension #90 02/15/23 04/10/25 Rx tabs methocarbamol 1,000 mg tablet 1,000 mg PO TID muscle spasms #90 04/16/23 04/10/25 Rx tabs flash glucose sensor (FreeStyle #1 ea 06/15/23 04/10/25 Rx Joelle 14 Day Sensor kit) furosemide 40 mg tablet 40 mg PO BID 07/02/24 04/10/25 History hydroxyzine pamoate 25 mg capsule 25 mg PO TID PRN Panic Disorder 07/02/24 04/10/25 History (Vistaril) isosorbide dinitrate 30 mg tablet 30 mg PO BID 07/02/24 04/10/25 History methimazole 5 mg tablet 2.5 mg PO DAILY 07/02/24 04/10/25 History pantoprazole 40 mg tablet,delayed 40 mg PO DAILY 07/02/24 04/10/25 History release ropinirole 3 mg tablet 3 mg PO HS 07/02/24 04/10/25 History tizanidine 4 mg tablet (Zanaflex) 4 mg PO BID PRN Myalgia 07/02/24 04/10/25 History trazodone 150 mg tablet 150 mg PO HS 07/02/24 04/10/25 History citalopram 40 mg tablet (Celexa) 40 mg PO DAILY 09/11/24 04/10/25 History duloxetine 60 mg capsule,delayed 60 mg PO DAILY MOOD 09/11/24 04/10/25 History release (Cymbalta) silver sulfadiazine 1 % topical 1 applic topical DAILY 30 days #50 10/28/24 04/10/25 Rx cream (Silvadene) grams gabapentin 600 mg tablet 600 mg PO TID 02/05/25 04/10/25 History tramadol 50 mg tablet 50 mg PO BID PRN pain #60 tabs 03/13/25 04/10/25 Rx lidocaine 5 % topical ointment 1 applic topical BID PRN pain 30 04/06/25 04/10/25 Rx days #50 grams tirzepatide 2.5 mg/0.5 mL 2.5 mg SQ WEEKLY 04/06/25 04/10/25 History subcutaneous pen injector (Mounjaro) New Prescriptions to Start Prescriptions: Allergies Allergy/AdvReac Type Severity Reaction Status Date / Time ceftriaxone (From ROCEPHIN) Allergy Unknown Rash Verified 04/06/25 15:53 droperidol (From INAPSINE) Allergy Unknown Hives Verified 04/06/25 15:53 ibuprofen (IBUPROFEN) Allergy Unknown Hives Verified 04/06/25 15:53 moxifloxacin (From AVELOX) Allergy Unknown Rash Verified 04/06/25 15:53 Exam Data for Last 24 hours Vital signs and Labs for Last 24 Hours: Pulse Resp BP Pulse Ox O2 Del Method 72 18 137/62 95 Room Air 04/10/25 11:51 04/10/25 11:51 04/10/25 11:51 04/10/25 11:51 04/10/25 11:51 I & O for Last 24 hours: Intake & Output 04/07/25 04/08/25 04/09/25 04/10/25 23:59 23:59 23:59 23:59 Weight 254 lb Constitutional Constitutional: no acute distress and obese *Routine HEENT Exam Head: Present normocephalic and atraumatic Eye: Present PERRL ENT: Present mucous membranes moist *Routine Neck Exam Neck: Present supple *Routine Respiratory Exam Respiratory: Present CTA bilaterally *Routine Cardiovascular Exam Cardiovascular: Present RRR *Routine Abdominal Exam Abdominal: Present soft *Routine Rectal Exam Rectal:: deferred *Routine Genitalia Exam Genitalia:: deferred Routine Back/Spine/Pelvis Exam Back/Spine: Present pain with flexion, pain with lateral flexion and pain with rotation *Routine Skin Exam Skin: Present intact, warm and wounds Comments: Continued foot/ankle wound *Routine Neurological Exam Neurological: Present alert and oriented X3 Routine Psychiatric Exam Psychiatric: Present normal affect and normal thought process Assessment and Plan *Assessment and plan (1) Diabetic ulcer of right foot: Status: Acute Qualifiers: Diabetic foot ulcer location: other Diabetes mellitus type: type 2 Non-pressure ulcer stage: with muscle involvement without evidence of necrosis Qualified Code(s): E11.621 - Type 2 diabetes mellitus with foot ulcer; L97.515 - Non-pressure chronic ulcer of other part of right foot with muscle involvement without evidence of necrosis Category: Medical Code(s): E11.621 - Type 2 diabetes mellitus with foot ulcer; L97.519 - Non-pressure chronic ulcer of other part of right foot with unspecified severity (2) Degenerative joint disease (DJD) of lumbar spine: Status: Chronic Qualifiers: Spinal osteoarthritis complication: with radiculopathy Qualified Code(s): M47.26 - Other spondylosis with radiculopathy, lumbar region Category: Medical Code(s): M47.816 - Spondylosis without myelopathy or radiculopathy, lumbar region (3) Lumbar radiculopathy: Status: Chronic Category: Medical Code(s): M54.16 - Radiculopathy, lumbar region Plan Patient has been instructed to contact the clinic with any concerns before the next appointment. Dr. Goddard has reviewed this note and agrees with this plan of care. This note was dictated using voice recognition software and make contain errors or omissions. All injections are used with Lidocaine, Bupivacaine and dexamethasone. Occasionally urine drug screen is needed to verify patient's compliance with our office pain contract. This is ordered based off specific treatments related to chronic pain with the potential to abuse certain medications.
--- NOTE | 2025-04-10 12:07 | EXP.PAIN.PRO ---
Procedure Date: 04/10/25 Time: 12:21 Anesthesiologist:: Renae Rey APRN Complications:: None Pre-procedure Diagnosis:: Degenerative disc disease of lumbar spine with lumbar radiculopathy symptoms, diabetic peripheral neuropathy, nonhealing right foot/ankle wound Post-procedure Diagnosis:: Same Indications for Procedure:: Patient is a pleasant 54-year-old female who presents today for intrathecal refill and reprogram. She rates her pain a 6 out of 10. She denies any new trauma or injury. Patient states she is still working on having her MRI for her foot and ankle. Patient states they are wanting her to do the hyperbaric chamber once she is able to help with additional healing. Patient does state that she is however scheduled for cataract surgery coming up and that she needs to do this first before proceeding forward with that intervention. Patient is currently managed with Dilaudid 20 mg/mL with a daily dose of 9 mg/day and bupivacaine 10 mg/mL with a daily dose of 4.5 mg/day. She denies any side effects. Her Sukhjinder has been reviewed and is appropriate. Patient is currently managed with tramadol twice a day from our office for her foot pain. Her Sukhjinder has been reviewed and is appropriate. Physical Exam: General: Alert and oriented x3, no acute distress, pleasant and cooperative Lungs: Respirations even and unlabored, symmetrical chest expansion Eyes: PERRL Musculoskeletal: Flexion and extension of lumbar [spine] somewhat guarded secondary to pain, [antalgic gait noted] Neurological: Speech clear, no gross sensory deficit Procedure Details:: Informed consent was obtained and the risk and benefits of the procedure were explained to the patient. The patient had noninvasive monitoring placed including noninvasive blood pressure cuff and pulse oximeter. Patient's pump was interrogated. The area over the pump was cleansed with chlorhexidine as a cleansing solution. In sterile fashion the pump was accessed with a 22-gauge needle. Approximately 6 mls of the pump solution was removed and discarded appropriately. The pump was then refilled with 20 mL's of Dilaudid 20 mg/mL and bupivacaine 10 mg/mL. The needle was withdrawn and a bandage was placed over the puncture site. The infusion rate was reprogrammed and continued at its current dosage. The patient tolerated well with no complication. Plan and Disposition:: Patient tolerated the procedure well with no complications and was discharged neurologically intact. Patient is requesting if we can help get her the numbers of her serial number and model number for the pump as well as her spinal cord stimulator. I will refill the patient's tramadol and provide a 3-month supply of this medication. Patient will return to clinic on or before their next intrathecal refill date. We will see the patient back in the clinic at the next intrathecal refill. Patient has been instructed to contact the clinic with any concerns before the next appointment. Dr. Goddard has reviewed this note and agrees with this plan of care. This note was dictated using voice recognition software and make contain errors or omissions. -- It Is medically necessary for this patient to continue to have their intrathecal pump refilled at regular intervals. This patient had an intrathecal pain pump implanted after meeting criteria of chronic intractable pain for greater than 3 months and failing conservative treatments. Patient has committed and been compliant to the treatment plan and all planned follow up care. Since implantation of the intrathecal pain pump, the patient has had decreased pain and been more functional. Oral medications have been reduced including intake of oral opioids. Patient continues to do well with intrathecal therapy with decrease in pain symptoms and increase in functional status. Stopping intrathecal medications can lead to life threatening withdrawal, seizures, cardiac arrest, severe pain, and possible . Pumps that are not refilled at regular intervals can be damages and cause and need for replacement. We continually titrate dose and concentration to optimize pain relief and function. We are limited in concentration for certain drugs to safely deliver medications through the pump and stay within the recommendations from the Polyanalgesic Consensus Committee Guidelines. Depending on dose and concentration these pumps may need to be refilled sooner than 3 months as we titrate. A UDS is needed to verify patient's compliance with our office pain contract. This is ordered based off specific treatments related to chronic pain with the potential to abuse certain medications.
[2025-04-10 12:26] VITALS: BP 137/62; PULSE 72; RESP 18; O2SAT 95
[2025-04-10 12:40] VITALS: BP 129/62; PULSE 67; RESP 16; O2SAT 97
== END 2025-04-10 12:40 | disposition home or self-care (01) ==
PROVIDERS: PCP Nurse Practitioner; Visit Provider Nurse Practitioner Family
DX: Z45.1 Encounter for adjustment and management of infusion pump (principal); M47.26 Other spondylosis with radiculopathy, lumbar region; M51.16 Intervertebral disc disorders with radiculopathy, lumbar region; E11.621 Type 2 diabetes mellitus with foot ulcer; L97.515 Non-pressure chronic ulcer of other part of right foot with muscle involvement without evidence of necrosis; F17.210 Nicotine dependence, cigarettes, uncomplicated; E03.9 Hypothyroidism, unspecified; I10 Essential (primary) hypertension; E11.610 Type 2 diabetes mellitus with diabetic neuropathic arthropathy; Z79.4 Long term (current) use of insulin; F41.8 Other specified anxiety disorders; F32.1 Major depressive disorder, single episode, moderate; Z79.899 Other long term (current) drug therapy; Z79.85 Long-term (current) use of injectable non-insulin antidiabetic drugs; Z88.6 Allergy status to analgesic agent; Z88.1 Allergy status to other antibiotic agents; Z88.8 Allergy status to other drugs, medicaments and biological substances; E66.9 Obesity, unspecified; Z68.41 Body mass index [BMI] 40.0-44.9, adult
CPT/HCPCS: 62370

== ENCOUNTER 2025-04-14 10:45 | Outpatient (CLI) | payer MEDICARE, OTHER, SELFPAY ==
--- OUTSIDE RECORDS SUMMARY | 2025-04-15 10:20 | XMS_ITS | Encounter Summary ---
Author Organization [employer] ([place], [place], [place], [place]) Address [address] [place] [address] Care Team Providers Care Equipment Cleaner And Tester Name Role Phone Unavailable Primary Care Provider Unavailabl e Encounter Details Date Type Department Care Team (Late st Contact Info) Description 03/29/2022 Transcribed Document [facility] Family Medicine [address] [place] [address] ProviderStefani MD [address] [place] [address] Social History Tobacco Use Types Packs/Day Years Used Date Smoking Tobacco: Never Assessed Comments Unknown Sex and Gender Information Value Date Recorded Sex Assigned at Not on file Legal Sex Female 5:12 PM CDT Gender Identity Not on file Sexual Orientation Not on file documented as of this encounter Miscellaneous Notes * Cerner Conversion Note - Stefani oCle MD - 03/29/2022 10:32 AM CDT Patient [...] these instructions at home: Medicines ??? Take ytgm-rhm-lnpkutu and prescription medicines only as told by your health care provider. Insertion site care ??? Follow instructions from your health care provider about how to take care of your insertion site. Make sure you: ? Wash your hands with soap and water before you change your bandage (dressing). If soap and water are not available, use hand model builder display. ? Change your dressing as told by [...] provider. Document Revised: 10/23/2018 Document Reviewed: 10/23/2018 [employer] Patient Education ? 2020 [employer] Pharmacology Moderate Conscious Sedation, Adult, Care [...] eating solid foods. General instructions ??? Take nezq-jmx-mddqrmx and prescription medicines only as told by [...] provider. Document Revised: 01/14/2021 Document Reviewed: 08/12/2020 [employer] Patient Education ? 2020 [employer] documented in this encounter Plan of Treatment Not on file documented as of this encounter Visit Diagnoses Not on filedocumented in this encounter
--- OUTSIDE RECORDS SUMMARY | 2025-04-15 10:20 | XMS_ITS | Encounter Summary ---
Author Organization [employer] ([place], [place], [place], [place]) Address [address] [place] [address] Care Team Providers Care Manager Sound Name Role Phone Unavailable Primary Care Provider Unavailabl e Encounter Details Date Type Department Care Team (Late st Contact Info) Description 03/29/2022 Transcribed Document [facility] Family Medicine [address] [place] [address] ProviderStefani MD [address] [place] [address] Social History Tobacco Use Types [...] Cole MD - 03/29/2022 12:50 PM CDT [facility] [place] [address] SEEMA DELACRUZN :1970 Visit Time:03/29/2022 [...] has been made Where: [address] [place] [address]- [phone] Go Try It On (1) Medications What How Much When Instructions [...] these instructions at home: Medicines ??? Take xgwy-vjd-vembggl and prescription medicines only as told by your health care provider. Insertion site care ??? Follow instructions from your health care provider about how to take care of your insertion site. Make sure you: ? Wash your hands with soap and water before you change your bandage (dressing). If soap and water are not available, use hand deputy general counsel. ? Change your dressing as told by [...] provider. Document Revised: 10/23/2018 Document Reviewed: 10/23/2018 [employer] Patient Education ?? 2021 [employer] Moderate Conscious Sedation, Adult, Care After [...] eating solid foods. General instructions ??? Take kkkc-wot-brmbkzj and prescription medicines only as told by [...] Reviewed: 08/12/2020 [employer] Patient Education ?? 2020 [employer] Emergency Awareness and Preventative Care STROKE [...] Assistance with quitting is available by contacting 4-934-USEMNOW. This is a free resource providing counseling, support, and referral. Or you may contact your personal physician. [place] Suicide Prevention Lifeline: The National Suicide Prevention [...] was given the opportunity to ask questions. Patient/Fruit Thinner Name: Patient/Fruit Thinner Signature: Relationship to Patient: Clinician/Hospital Fruit Thinner Signature: Date: documented in this encounter Plan of Treatment Not on file documented as of this encounter Visit Diagnoses Not on filedocumented in this encounter
--- OUTSIDE RECORDS SUMMARY | 2025-04-15 10:20 | XMS_ITS | Clinical Summary ---
Author Organization [facility] Address [address] [place] [place] [address] Care Team Providers Care Track Welder Name Role Phone Faustino Amador MD Primary Care Provider + [phone] Allergies Active Allergy Reactions Criticality Noted Date [...] day. 10/10/19 Active Lancets (OneTouch Delica Plus Zvbklu21H) [facility] 07/11/20 Active Easy Comfort Pen [place] 31G X 5 MM [facility] 12/11/19 Active HumuLIN 70/30 KWIKPEN (70-30) 100 UNIT/ML injection 60 Units 2 (two) times a day before meals. 09/06/20 Active OneTouch Verio test strip 07/11/20 Active gabapentin (Neurontin) 400 MG capsule Take 1 capsule (400 mg) by mouth 4 (four) times a day. 11/21/19 Active cyclobenzaprine (Fexmid) 7.5 MG tablet every night. 10/28/19 Active Continuous Blood Gluc Sensor (FreeStyle Joelle 14 Day Sensor) [facility] 11/14/19 Active diclofenac (Voltaren) 75 MG EC [...] directed 10/29/19 24 Active ergocalciferol 1.25 MG (89514 UT) capsule Take 1 capsule every week by oral route for 90 days. 10/29/19 24 Active methocarbamol (Robaxin) 500 MG tablet 10/29/19 24 Active ondansetron ODT (Zofran-ODT) [address] 1 tablet every 4-6 hours by translingual route as needed. Active therapeutic multivitamin-hearing examiner als (Theragran-M) tablet Take 1 tablet [...] (05/24/2022): Added automatically from request for surgery [id number] Excess skin 12/16/2021 Overview (12/16/2021): Added automatically from request for surgery [id number] Microalbuminuria 03/12/2020 Cervical radiculopathy 11/22/2018 Neck pain [...] drink first t debra in the morning (EYE-SEWING TECHNIQUES DEMONSTRATOR) to steady your nerves or to get [...] Health Maintenance Due Date Last Done Comments [facility]-Diabetes: Hemoglobin A1C 1970 [facility]-HIV Screening 1970 [facility]-Hepatitis C Screening 1970 [facility]Medicare Annual Wellness (AWV) 1970 [facility]-Infant/Child/Adol SDOH Screenings 1970 Diabetes: Dental Exam 1979 [...] 2019 [facility]-Zoster Vaccines (1 of 2) 2019 [id number] Vaccine (3 - 2023- season) 2024 04/07/2021, [...] this topic Medical Devices Implanted Type Area Poultry Husbandman Device Identifier Shelf Expiration Date Model / Serial / Lot Pain Pump Pain Pump Right: Back Insurance [employer] MEDICAID AETNA MEDICARE Advance Directives * Full Code (Latest Code Status on File) Date Activated Date Inactivated Comments 05/24/2022 4:10 PM 05/26/2022 3:36 PM Question Answer Comments Patient has decision-making capacity? Yes Care Teams Track Welder Relationship Specialty Start Date End Date Faustino Amador MD [address] [place] [address] PCP - General 03/14/21
--- OUTSIDE RECORDS SUMMARY | 2025-04-15 10:20 | XMS_ITS | Encounter Summary ---
Author Organization [facility] Address [address] [place] [address] Care Team Providers Care Canning Machine Operator Name Role Phone Faustino Amador MD Primary Care Provider [phone] Reason for Referral * Consultation (Routine) - Closed Specialty Diagnoses / Procedures Referred By Betito carty Referred To Contact Plastic Surgery Diagnoses Excess skin Khurram Chanel APRN [address] [place] [address] Phone: tel: fax: Referral ID Status Reason Start Date Expiration Date V isits Requested Visits Authorized [id number] Closed Specialty Services Required 11/29/2021 05/31/2023 1 1 Encounter Details Date Type Department Care Team (Late st Contact Info) Description 11/29/2021 Community [facility] Community Practice [address] [place] [address] Khurram Chanel APRN [address] [place] [address] Excess skin (Primary Dx) Social History Tobacco [...] Primary documented in this encounter Care Teams Canning Machine Operator Relationship Specialty Start Date End Date Faustino Amador MD [address] [place] [address] PCP - General 03/14/21 documented as of this encounter
--- OUTSIDE RECORDS SUMMARY | 2025-04-15 10:20 | XMS_ITS | Encounter Summary ---
Author Organization [email or web address] ([place], [place], [place], [place]) Address [address] [place] [address] Care Team Providers Care Adhesive Primer Name Role Phone Unavailable Primary Care Provider Unavailabl e Encounter Details Date Type Department Care Team (Late st Contact Info) Description 03/29/2022 Transcribed Document [facility] Cardiology [address] [place] [address] Faustino West MD [address] [facility] [address] [place] [id number] Social History Tobacco Use Types Packs/Day Years [...] WEST MD-CAR Basic Information PCP: Dr. Amador Skip Hoist Operator: Noris Fallon MD Chief Complaint Abnormal Stress [...] Active COPD - Chronic obstructive pulmonary disease (561781048) HLD - Hyperlipidemia (087190893) HTN - Hypertension (2345558724) MEGHAN - Obstructive sleep apnea (8954324519) Type 2 diabetes mellitus (672271728) Family History: Father HDL - High density [...] of motion, Normal strength. Integumentary: Warm, Dry, [place]. Neurologic: Alert, Oriented. Psychiatric: Cooperative, Appropriate mood [...]
--- OUTSIDE RECORDS SUMMARY | 2025-04-15 10:20 | XMS_ITS | Encounter Summary ---
Author Organization [employer] ([place], [place], [place], [place]) Address [address] [place] [address] Care Team Providers Care Air Route Traffic Controller Name Role Phone Unavailable Primary Care Provider Unavailabl e Encounter Details Date Type Department Care Team (Late st Contact Info) Description 03/29/2022 Transcribed Document [facility] [place] [address] [place] [address] ProviderStefani MD [address] [place] [address] Social History Tobacco Use Types [...]
--- OUTSIDE RECORDS SUMMARY | 2025-04-15 10:20 | XMS_ITS | Encounter Summary ---
Author Organization [employer] ([place], [place], [place], [place]) Address [address] [place] [address] Care Team Providers Care Family Living Educator Name Role Phone Unavailable Primary Care Provider Unavailabl e Encounter Details Date Type Department Care Team (Late st Contact Info) Description 03/29/2022 Transcribed Document [facility] [address] [place] [address] ProviderStefani MD [address] [place] [address] Social History Tobacco Use Types [...] Source : Stated Height Entry Format : [place] Height, Feet : 5 ft(Converted to: 152 cm, 60 Inch) Height, Inches : 6 Inch(Converted to: 0 ft 6 Inch, 15.24 cm) Clinical Height : 167.64 cm Weight Source : Standing scale Weight Entry Format : [place] Clinical Dosing Weight : 123.64 kg Weight, Pounds : 272 lb Body Surface Area (BSA) : 2.28 m2 Body Mass Index : 44 kg/m2 (>HHI) [place] Body Weight : 59 kg Justina Childers [...] Justina Childers RN - 03/29/2022 8:11 EDT [place] Suicide Severity Rating Scale (C-SSRS) CSSRS Past [...] nguyen Support Person/Pt Rep Contact Information : [phone] Want Family/Rep/Phys Notified of Admit : No Emergency Contact #1 : . Emergency Contact #1 Phone Number : . Emergency Contact #1 Relationship : . Emergency Contact #2 : . Emergency Contact #2 Phone Number : . Emergency Contact #2 Relationship : . Primary Language : [place] Citizen Communication Barrier : None Publications Designer Needed : No Justina Childers RN - [...] Scale Risk Level : 25-45 Medium Risk [place] Fall Interventions : Adequate lighting, Assistive devices [...]
--- OUTSIDE RECORDS SUMMARY | 2025-04-15 10:20 | XMS_ITS | Clinical Summary ---
Author Organization [employer] [facility] ([place], [place], [place], [place]) Address [address] [place] [id number] Care Team Providers Care Director Of Coding Name Role Phone Unavailable Primary Care Provider [...]
--- OUTSIDE RECORDS SUMMARY | 2025-04-15 10:20 | XMS_ITS | Clinical Summary ---
Author Organization [facility] Address [address] [place] [address] Phone Care Team Providers Care Support Services Specialist Name Role Phone Unavailable Primary Care Provider [...] Impressions 11/19/2023 7:29 AM EST Benign finding ([id number]-4) ~ RECOMMENDATION: Routine screening mammogram in 1 [...] the next mammogram, in accordance with the [employer] and the Society of Breast Imaging recommendations. Narrative 11/19/2023 7:29 AM EST Procedure:MM MAMMO DIGITAL EULALIA SCREEN BILAT ~ Reason for exam: screening, asymptomatic. Z12.31-Encounter for screening mammogram for malignant neoplasm of [id number]-CM ~ MM MAMMO DIGITAL EULALIA SCREEN BILAT [...] for screening mammogram for malignant neoplasm of [id number] ~ MM MAMMO DIGITAL EULALIA SCREEN BILAT [...] evidence of malignancy. ~ IMPRESSION: Benign finding ([id number]-[id number]-2) ~ RECOMMENDATION: Routine screening mammogram in 1 [...] the next mammogram, in accordance with the [employer] and the Society of Breast Imaging recommendations. us Not In [facility] Provider IMG MAMMOGRAPHY ORDERABLES Final Result from Last 3 Months or Most Recently Relevant to Health Maintenance Insurance [place] [address] [employer] MEDICARE HMO
--- OUTSIDE RECORDS SUMMARY | 2025-04-15 10:20 | XMS_ITS | Clinical Summary ---
Author Organization [facility] Address [address] [place] [address] Phone Care Team Providers Care Manufacturing Technology Analyst Name Role Phone Sanaz RN, Linn Unavailable [...] lower limb Acute respiratory failure with hypercapnia 79866685 (SNOMED CT) Active Freda Medina Acute respiratory failure Leukemoid reaction 14234539 (SNOMED CT) Active Freda Medina Leukemoid reaction exterminator helper (current) use of systemic steroids Z79.52 (ICD-10-CM ) Active Freda Medina exterminator helper (current) use of systemic steroids Benign Essential Hypertension 71763975 (SNOMED CT) Active Freda Medina Benign hypertension [...]
--- OUTSIDE RECORDS SUMMARY | 2025-04-15 10:20 | XMS_ITS | Data Portability ---
Author Organization [facility] Address [address] [place] [address] Assessment No assessment recorded. Plan of Treatment Reminders Order Date Submit Date Provider Last Modified By Organization Details Last Modified Time Details Appointments None recorded. Lab HbA1c (hemoglobin A1c), blood [address], [address] [place] [address], [address], 5 14:08:02 CMP, serum or plasma 2024 025 [facility] [address] [place], [address], 5 08:11:46 CBC w/ auto diff 2024 025 EULESS [facility] ([place]), [address] [place], [address], 5 08:11:45 TSH + free T4, serum 2024 025 SHELBY [facility] ([place]), [address] [place], [address], 5 08:11:45 HIV 1 + 2, meaningful use set 2024 025 [facility] [address] [place], [address], 5 08:11:47 lipid panel, serum 2024 025 EULESS [facility] ([place]), [address] [place], [address], 5 08:11:46 cobalamin and folate panel, serum 2024 025 [facility] ([place]), [address] [place], [address], 5 08:11:47 vitamin D, 25-hydroxy, total, serum 2024 025 [facility] ([place] [address] [place], [address], 5 08:11:47 HbA1c (hemoglobin A1c), blood [address], [address], 5 17:08:29 HbA1c (hemoglobin A1c), blood [address], [address] [place] [address], [address], 4 13:06:35 TSH + free T4, serum 2023 024 [facility] ([place] [place], [address], 4 04:07:48 HbA1c (hemoglobin A1c), blood [address], [address], 4 14:58:46 Referral gastroenter ologist referral - first avail. 2023 024 fabricio Wilkins [facility], [address], [place], [address], 4 16:52:15 physical therapist referral - first avail. [facility] for lymphedema and right foot ulcers 2023 024 [facility], [address], [place], [address], 4 15:39:51 Procedures None recorded. Surgeries None recorded. Imaging XR, chest, 2 view 2024 025 [facility], [address], [place], [address], 5 17:05:37 US, abdomen, complete - first available appt 2023 024 [facility] Centralized Scheduling, [address] [place] [address] , [place], [address], 4 11:15:09 Medication Orders Linzess 145 mcg capsule 2024 025 [facility], [address] [place] [address], [address], 5 14:10:05 trazodone 150 mg tablet 2024 025 [facility], [address] [place] [address], [address], 5 15:14:40 albuterol sulfate 0.63 mg/3 mL solution for nebulizatio n 2024 025 [facility], [address] [place] [address], [address], 5 15:14:46 Ventolin HFA 90 mcg/actuati on aerosol inhaler 2024 025 [facility], [address] [place] [address], [address], 5 15:14:32 Trelegy Ellipta 100 mcg-62.5 mcg-25 mcg powder for inhalation 2024 025 [facility], [address] [place] [address], [address], 5 15:14:36 duloxetine 60 mg capsule,del ayed release 2024 025 [facility], [address] [place] [address], [address], 5 15:14:44 escitalopra m 20 mg tablet 2024 025 [facility], [address] [place] [address], [address], 5 15:14:44 ropinirole 3 mg tablet 2024 025 [facility], [address] [place] [address], [address], 5 15:14:58 ondansetron 4 mg disintegrat ing tablet 2024 025 [facility], [address] [place] [address], [address], 5 15:14:36 carvedilol 25 mg tablet 2024 025 [facility], [address] [place] [address], [address], 5 15:14:48 Lasix 40 mg tablet 2024 025 [facility], [address] [place] [address], [address], 5 15:14:46 isosorbide dinitrate 30 mg tablet 2024 025 [facility], [address] [place] [address], [address], 5 15:14:41 lisinopril 2.5 mg tablet 2024 025 [facility], [address] [place] [address], [address], 5 15:14:44 Vistaril 25 mg capsule 2024 025 [facility], [address] [place] [address], [address], 14:10:04 gabapentin 600 mg tablet 2024 025 [facility], [address] [place] [address], [address], 5 14:10:05 fenofibrate 54 mg tablet 2024 025 [facility], [address] [place] [address], [address], 5 15:15:01 simvastatin 40 mg tablet 2024 025 [facility], [address] [place] [address], [address], 5 15:14:38 tizanidine 4 mg tablet 2024 025 [facility], [address] [place] [address], [address], 5 15:14:58 Vitamin C 500 mg chewable tablet 2024 025 [facility], [address] [place] [address], [address], 5 17:00:44 ergocalcife rol (vitamin D2) 1,250 mcg (50,000 unit) capsule 2024 025 [facility], [address] [place] [address], [address], 5 17:00:45 pantoprazol e 40 mg tablet,jerel yed release 2024 025 [facility], [address] [place] [address], [address], 5 15:14:41 Lantus Solostar U-100 Insulin 100 unit/mL (3 mL) subcutaneou s pen 2024 025 [facility], [address] [place] [address], [address], 14:10:06 Mounjaro 2.5 mg/0.5 mL subcutaneou s pen injector 2024 025 [facility], [address] [place] [address], [address], 5 15:14:34 Humulin 70/30 U-100 Insulin KwikPen 100 unit/mL subcutaneou s 2024 025 [facility], [address] [place] [address], [address], 5 15:14:40 trazodone 150 mg tablet 2024 025 [facility], [address] [place] [address], [address], 5 16:36:09 Trelegy Ellipta 100 mcg-62.5 mcg-25 mcg powder for inhalation 2024 025 [facility], [address] [place] [address], 0[address], 14:11:53 albuterol sulfate 0.63 mg/3 mL solution for nebulizatio n 2024 025 [facility], [address] [place] [address], [address], 16:36:07 Ventolin HFA 90 mcg/actuati on aerosol inhaler 2024 025 [facility], [address] [place] [address], 18[address], 11:59:14 duloxetine 60 mg capsule,del ayed release 2024 025 [facility], [address] [place] [address], 9[address], 16:36:12 escitalopra m 20 mg tablet 2024 025 [facility], [address] [place] [address], 209[address], 16:36:10 ropinirole 3 mg tablet 2024 025 [facility], [address] [place] [address], 29[address], 16:36:16 Imodium A-D 2 mg tablet 2024 025 [facility], [address] [place] [address], [address], 15:55:45 ondansetron 4 mg disintegrat ing tablet 2024 025 [facility], [address] [place] [address], [address], 16:36:12 carvedilol 25 mg tablet 2024 025 [facility], [address] [place] [address], 917[address], 16:36:05 Lasix 40 mg tablet 2024 025 [facility], [address] [place] [address], 138[address], 16:36:06 isosorbide dinitrate 30 mg tablet 2024 025 [facility], [address] [place] [address], 877[address], 16:36:07 lisinopril 2.5 mg tablet 2024 025 [facility], [address] [place] [address], 03563, 5 16:36:04 Vistaril 25 mg capsule 2024 025 [facility], [address] [place] [address], 05[address], 11:59:12 gabapentin 600 mg tablet 2024 025 [facility], [address] [place] [address], 08[address], 5 11:59:13 fenofibrate 54 mg tablet 2024 025 [facility], [address] [place] [address], 384[address], 5 16:36:10 simvastatin 40 mg tablet 2024 025 [facility], [address] [place] [address], 56[address], 5 16:36:06 Vitamin C 500 mg chewable tablet 2024 025 [facility], [address] [place] [address], 718[address], 5 15:50:44 ergocalcife rol (vitamin D2) 1,250 mcg (50,000 unit) capsule 2024 025 [facility], [address] [place] [address], 77186, 5 16:36:11 pantoprazol e 40 mg tablet,jerel yed release 2024 025 [facility], [address] [place] [address], 14[address], 5 16:36:15 Lantus Solostar U-100 Insulin 100 unit/mL (3 mL) subcutaneou s pen 2024 025 [facility], [address] [place] [address], 10[address], 5 16:36:15 Ozempic 2 mg/dose (8 mg/3 mL) subcutaneou s pen injector 2024 025 [facility], [address] [place] [address], 56[address], 5 16:36:09 Humulin 70/30 U-100 Insulin KwikPen 100 unit/mL subcutaneou s 2024 025 [facility], [address] [place] [address], 344[address], 5 14:11:51 diclofenac 1 % topical gel 2023 024 [facility], [address] [place] [address], 37653, 4 12:54:28 trazodone 150 mg tablet 2023 024 [facility], [address] [place] [address], 54175, 4 13:29:42 Ventolin HFA 90 mcg/actuati on aerosol inhaler 2023 [facility], [address] [place] [address], 60359, 5 17:15:16 albuterol sulfate 0.63 mg/3 mL solution for nebulizatio n 2023 [facility], [address] [place] [address], 62471, 4 13:29:43 duloxetine 60 mg capsule,del ayed release 2023 [facility], [address] [place] [address], 88704, 4 13:29:37 escitalopra m 20 mg tablet 2023 [facility], [address] [place] [address], 03635, 4 13:29:38 ropinirole 3 mg tablet 2023 [facility], [address] [place] [address], 12647, 4 13:29:43 Imodium A-D 2 mg tablet 2023 [facility], [address] [place] [address], 66960, 4 13:39:50 ondansetron 4 mg disintegrat ing tablet 2023 [facility], [address] [place] [address], 10055, 4 13:29:40 tramadol 50 mg tablet 2023 [facility], [address] [place] [address], 76784, 4 13:29:44 carvedilol 25 mg tablet 2023 [facility], [address] [place] [address], 79573, 4 13:29:45 Lasix 40 mg tablet 2023 [facility], [address] [place] [address], 64589, 4 13:29:43 isosorbide dinitrate 30 mg tablet 2023 [facility], [address] [place] [address], 94286, 13:29:39 lisinopril 2.5 mg tablet 2023 [facility], [address] [place] [address], 50964, 13:29:34 Vistaril 25 mg capsule 2023 [facility], [address] [place] [address], 22111, 5 17:04:28 gabapentin 600 mg tablet 2023 [facility], [address] [place] [address], 78511, 5 17:04:26 fenofibrate 54 mg tablet 2023 [facility], [address] [place] [address], 66639, 4 13:29:40 simvastatin 40 mg tablet 2023 [facility], [address] [place] [address], 43717, 4 13:29:46 tizanidine 4 mg tablet 2023 [facility], [address] [place] [address], 75936, 4 13:29:41 Vitamin C 500 mg chewable tablet 2023 [facility], [address] [place] [address], 66215, 4 13:54:54 ergocalcife rol (vitamin D2) 1,250 mcg (50,000 unit) capsule 2023 [facility], [address] [place] [address], 75632, 4 13:29:45 pantoprazol e 40 mg tablet,jerel yed release 2023 [facility], [address] [place] [address], 90902, 4 13:29:37 Humulin 70/30 U-100 Insulin KwikPen 100 unit/mL subcutaneou s 2023 [facility], [address] [place] [address], 84495, 4 17:40:41 Lantus Solostar U-100 Insulin 100 unit/mL (3 mL) subcutaneou s pen 2023 [facility], [address] [place] [address], 61058, 4 13:29:35 Ozempic 2 mg/dose (8 mg/3 mL) subcutaneou s pen injector 2023 [facility], [address] [place] [address], 74500, 4 17:40:41 tramadol 50 mg tablet 2023 024 [facility], [address] [place] [address], 25794, 4 16:39:02 gabapentin 400 mg capsule 2023 024 [facility], [address] [place] [address], 86594, 4 13:29:34 diclofenac 1 % topical gel 2023 024 [facility], [address] [place] [address], 80959, 4 15:46:36 trazodone 150 mg tablet 2023 024 [facility], [address] [place] [address], 69320, 4 16:21:53 duloxetine 60 mg capsule,del ayed release 2023 024 [facility], [address] [place] [address], 56397, 4 16:21:50 escitalopra m 20 mg tablet 2023 024 [facility], [address] [place] [address], 75399, 4 16:21:47 ropinirole 3 mg tablet 2023 024 [facility], [address] [place] [address], 13995, 4 16:21:57 Imodium A-D 2 mg tablet 2023 024 [facility], [address] [place] [address], 68016, 4 15:56:39 ondansetron 4 mg disintegrat ing tablet 2023 [facility], [address] [place] [address], 75686, 4 16:21:52 tramadol 50 mg tablet 2023 [facility], [address] [place] [address], 68369, 4 16:21:49 carvedilol 25 mg tablet 2023 [facility], [address] [place] [address], 08544, 4 16:21:42 Lasix 40 mg tablet 2023 [facility], [address] [place] [address], 73055, 4 16:21:54 isosorbide dinitrate 30 mg tablet 2023 024 [facility], [address] [place] [address], 38572, 4 16:21:58 lisinopril 2.5 mg tablet 2023 024 [facility], [address] [place] [address], 94892, 4 16:00:57 Vistaril 25 mg capsule 2023 [facility], [address] [place] [address], 03143, 4 16:34:35 gabapentin 400 mg capsule [address] [facility], [address] [place] [address], 90243, 4 13:03:50 azithromyci n 250 mg tablet [address] [facility], [address] [place] [address], 35540, 5 13:29:55 fenofibrate 54 mg tablet 2023 024 [facility], [address] [place] [address], 95621, 4 16:21:49 simvastatin 40 mg tablet 2023 [facility], [address] [place] [address], 54615, 4 11:17:45 tizanidine 4 mg tablet 2023 024 [facility], [address] [place] [address], 05329, 4 16:21:53 Vitamin C 500 mg chewable tablet 2023 024 [facility], [address] [place] [address], 80131, 4 15:41:41 ergocalcife rol (vitamin D2) 1,250 mcg (50,000 unit) capsule 2023 024 [facility], [address] [place] [address], 72603, 4 16:21:50 pantoprazol e 40 mg tablet,jerel yed release 2023 024 [facility], [address] [place] [address], 93559, 4 15:41:40 Lantus Solostar U-100 Insulin 100 unit/mL (3 mL) subcutaneou s pen 2023 [facility], [address] [place] [address], 29190, 4 16:21:46 Ozempic 2 mg/dose (8 mg/3 mL) subcutaneou s pen injector 2023 [facility], [address] [place] [address], 82819, 4 16:21:54 Humulin 70/30 U-100 Insulin KwikPen 100 unit/mL subcutaneou s 2023 [facility], [address] [place] [address], 05997, 4 16:21:56 Patient TargetsNo targets recorded. Patient InstructionsNo instructions recorded. Reason for Referral Environmental Service Aide Referral for Abdominal pain first avail. Referring Physician: [facility], Encounter Date: 06/12/2024 Physical Therapist Referral for Lymphedema of bilateral lower limbs first avail. [facility] for lymphedema and right foot ulcers Referring Physician: [facility], Encounter Date: 06/12/2024 Results Created Date Observation Date Name Description Value Unit Range Abnormal Flag Note LastModifiedBy Organization Detail LastModifiedTime 05/08/2005/09/2024 TSH+F REE T4 TSH <0.005 uIU/m L 0.450- 4.500 below low normal Not Available [facility] ([facility]) [address] [facility], [place], [address], 05/09/2024 04:07:48 05/08/2005/09/2024 TSH+F REE T4 T4,free(dire ct) 1.47 NG/dL 0.82-1 .77 normal Not Available [facility] ([facility]) [address] [facility], [place], [address], 05/09/2024 04:07:48 05/08/20 24 05/08/2024 HbA1c (hemo globi n A1c), blood HbA1c 8.7 Not Available [address], [address], 05/08/2024 14:44:32 08/26/20 24 08/26/2024 HbA1c (hemo globi n A1c), blood HbA1c 6.6 Not Available [address], [address], 08/26/2024 11:54:21 12/27/19 25 12/27/2024 TSH+F REE T4 TSH 0.128 uIU/m L 0.450- 4.500 below low normal Not Available [facility] ([facility]) [address] [place], [address], 12/27/2024 08:11:45 12/27/1912/27/2024 TSH+F REE T4 T4,free(dire ct) 1.10 NG/dL 0.82-1 .77 normal Not Available [facility] ([facility]) [address] [place], [address], 12/27/2024 08:11:45 12/27/1912/27/2024 CBC WITH DIFFE RENTI AL/PL ATELE T WBC 9.9 x10e3 /uL 3.4-10 .8 normal Not Available [facility] ([facility]) [address] [place], [address], 12/27/2024 08:11:45 12/27/19 25 12/27/2024 CBC WITH DIFFE RENTI AL/PL ATELE T RBC 6.30 x10e6 /uL 3.77-5 .28 above high normal Not Available [facility] ([facility]) [address] [place], [address], 12/27/2024 08:11:45 12/27/19 25 12/27/2024 CBC WITH DIFFE RENTI AL/PL ATELE T hemoglobin 17.6 g/dL 11.1-1 5.9 above high normal Not Available [facility] ([facility]) [address] [place], [address], 12/27/2024 08:11:45 12/27/19 25 12/27/2024 CBC WITH DIFFE RENTI AL/PL ATELE T hematocrit 53.9 % 34.0-4 6.6 above high normal Not Available [facility] ([facility]) [address] [place], [address], 12/27/2024 08:11:45 12/27/19 25 12/27/2024 CBC WITH DIFFE RENTI AL/PL ATELE T MCV 86 fL 79-97 normal Not Available [facility] ([facility]) [address] [place], [address], 12/27/2024 08:11:45 12/27/19 25 12/27/2024 CBC WITH DIFFE RENTI AL/PL ATELE T MCH 27.9 pg 26.6-3 3.0 normal Not Available [facility] ([facility]) [address] [place], [address], 12/27/2024 08:11:45 12/27/19 25 12/27/2024 CBC WITH DIFFE RENTI AL/PL ATELE T MCHC 32.7 g/dL 31.5-3 5.7 normal Not Available [facility] ([facility]) [address] [place], [address], 12/27/2024 08:11:45 12/27/19 25 12/27/2024 CBC WITH DIFFE RENTI AL/PL ATELE T RDW 13.5 % 11.7-1 5.4 Not Available [facility] ([facility]) [address] [place], [address], 12/27/2024 08:11:45 12/27/19 25 12/27/2024 CBC WITH DIFFE RENTI AL/PL ATELE T platelets 305 x10e3 /uL 150-45 0 normal Not Available [facility] ([facility]) [address] [facility], [place], [address], 12/27/2024 08:11:45 12/27/19 25 12/27/2024 CBC WITH DIFFE RENTI AL/PL ATELE T neutrophils 64 % not estab. normal Not Available [facility] ([facility]) [address] [facility], [place], [address], 12/27/2024 08:11:45 12/27/19 25 12/27/2024 CBC WITH DIFFE RENTI AL/PL ATELE T lymphs 24 % not estab. normal Not Available [facility] ([facility]) [address] [facility], [place], [address], 12/27/2024 08:11:45 12/27/19 25 12/27/2024 CBC WITH DIFFE RENTI AL/PL ATELE T monocytes 8 % not estab. normal Not Available [facility] ([facility]) [address] [facility], [place], [address], 12/27/2024 08:11:45 12/27/19 25 12/27/2024 CBC WITH DIFFE RENTI AL/PL ATELE T eos 3 % not estab. normal Not Available [facility] ([facility]) [address] [facility], [place], [address], 12/27/2024 08:11:45 12/27/19 25 12/27/2024 CBC WITH DIFFE RENTI AL/PL ATELE T basos 1 % not estab. normal Not Available [facility] ([facility]) [address] [facility], [place], [address], 12/27/2024 08:11:45 12/27/19 25 12/27/2024 CBC WITH DIFFE RENTI AL/PL ATELE T immature cells CUSTOMER SERVICE SALES CONSULTANT Not Available [facility] ([facility]) [address] [place], [address], 12/27/2024 08:11:45 12/27/19 25 12/27/2024 CBC WITH DIFFE RENTI AL/PL ATELE T neutrophils (absolute) 6.3 x10e3 /uL 1.4-7. 0 normal Not Available [facility] ([facility]) [address] [place], [address], 12/27/2024 08:11:45 12/27/19 25 12/27/2024 CBC WITH DIFFE RENTI AL/PL ATELE T lymphs (absolute) 2.4 x10e3 /uL 0.7-3. 1 normal Not Available [facility] ([facility]) [address] [place], [address], 12/27/2024 08:11:45 12/27/19 25 12/27/2024 CBC WITH DIFFE RENTI AL/PL ATELE T monocytes(ab solute) 0.8 x10e3 /uL 0.1-0. 9 normal Not Available [facility] ([facility]) [address] [place], [address], 12/27/2024 08:11:45 12/27/19 25 12/27/2024 CBC WITH DIFFE RENTI AL/PL ATELE T eos (absolute) 0.3 x10e3 /uL 0.0-0. 4 normal Not Available [facility] ([facility]) [address] [place], [address], 12/27/2024 08:11:45 12/27/19 25 12/27/2024 CBC WITH DIFFE RENTI AL/PL ATELE T baso (absolute) 0.1 x10e3 /uL 0.0-0. 2 normal Not Available [facility] ([facility]) [address] [place], [address], 12/27/2024 08:11:45 12/27/19 25 12/27/2024 CBC WITH DIFFE RENTI AL/PL ATELE T immature granulocytes 0 % not estab. Not Available [facility] ([facility]) [address] [facility], [place], [address], 12/27/2024 08:11:45 12/27/19 25 12/27/2024 CBC WITH DIFFE RENTI AL/PL ATELE T immature grans (abs) 0.0 x10e3 /uL 0.0-0. 1 Not Available [facility] ([facility]) [address] [facility], [place], [address], 12/27/2024 08:11:45 12/27/19 25 12/27/2024 CBC WITH DIFFE RENTI AL/PL ATELE T NRBC CUSTOMER SERVICE SALES CONSULTANT Not Available [facility] ([facility]) [address] [facility], [place], [address], 12/27/2024 08:11:45 12/27/19 25 12/27/2024 CBC WITH DIFFE RENTI AL/PL ATELE T hematology comments: CUSTOMER SERVICE SALES CONSULTANT Not Available [facility] ([facility]) [address] [facility], [place], [address], 12/27/2024 08:11:45 12/27/19 25 12/27/2024 COMP. METAB OLIC PANEL (14) glucose 138 mg/dL 70-99 above high normal Not Available [facility] ([facility]) [address] [facility], [place], [address], 12/27/2024 08:11:46 12/27/19 25 12/27/2024 COMP. METAB OLIC PANEL (14) BUN 19 mg/dL 6-24 normal Not Available [facility] ([facility]) [address] [facility], [place], [address], 12/27/2024 08:11:46 12/27/19 25 12/27/2024 COMP. METAB OLIC PANEL (14) creatinine 0.89 mg/dL 0.57-1 .00 normal Not Available [facility] ([facility]) [address] [facility] [place], [address], 12/27/2024 08:11:46 12/27/19 25 12/27/2024 COMP. METAB OLIC PANEL (14) eGFR 77 mL/mi n/1.7 3 >59 normal Not Available [facility] ([facility]) [address] [facility] [place], [address], 12/27/2024 08:11:46 12/27/19 25 12/27/2024 COMP. METAB OLIC PANEL (14) BUN/creatini ne ratio 21 9-23 normal Not Available [facility] ([facility]) [address] [facility], [place], [address], 12/27/2024 08:11:46 12/27/19 25 12/27/2024 COMP. METAB OLIC PANEL (14) sodium 135 mmol/ L 134-14 4 normal Not Available [facility] ([facility]) [address] [facility] [place], [address], 12/27/2024 08:11:46 12/27/19 25 12/27/2024 COMP. METAB OLIC PANEL (14) potassium 4.2 mmol/ L 3.5-5. 2 normal Not Available [facility] ([facility]) [address] [facility] [place], [address], 12/27/2024 08:11:46 12/27/19 25 12/27/2024 COMP. METAB OLIC PANEL (14) chloride 88 mmol/ L 96-106 below low normal Not Available [facility] ([facility]) [address] [facility] [place], [address], 12/27/2024 08:11:46 12/27/19 25 12/27/2024 COMP. METAB OLIC PANEL (14) carbon dioxide, total 31 mmol/ L 20-29 above high normal Not Available [facility] ([facility]) [address] [place], [address], 12/27/2024 08:11:46 12/27/19 25 12/27/2024 COMP. METAB OLIC PANEL (14) calcium 9.5 mg/dL 8.7-10 .2 normal Not Available [facility] ([facility]) [address] [place], [address], 12/27/2024 08:11:46 12/27/19 25 12/27/2024 COMP. METAB OLIC PANEL (14) protein, total 8.0 g/dL 6.0-8. 5 normal Not Available [facility] ([facility]) [address] [place], [address], 12/27/2024 08:11:46 12/27/19 25 12/27/2024 COMP. METAB OLIC PANEL (14) albumin 3.5 g/dL 3.8-4. 9 below low normal Not Available [facility] ([facility]) [address] [place], [address], 12/27/2024 08:11:46 12/27/19 25 12/27/2024 COMP. METAB OLIC PANEL (14) globulin, total 4.5 g/dL 1.5-4. 5 Not Available [facility] ([facility]) [address] [place], [address], 12/27/2024 08:11:46 12/27/19 25 12/27/2024 COMP. METAB OLIC PANEL (14) bilirubin, total 0.5 mg/dL 0.0-1. 2 normal Not Available [facility] ([facility]) [address] [place], [address], 12/27/2024 08:11:46 12/27/19 25 12/27/2024 COMP. METAB OLIC PANEL (14) alkaline phosphatase 154 IU/L 44-121 above high normal Not Available [facility] ([facility]) [address] [place], [address], 12/27/2024 08:11:46 12/27/19 25 12/27/2024 COMP. METAB OLIC PANEL (14) AST (SGOT) 22 IU/L 0-40 normal Not Available [facility] ([facility]) [address] [place], [address], 12/27/2024 08:11:46 12/27/19 25 12/27/2024 COMP. METAB OLIC PANEL (14) ALT (SGPT) 8 IU/L 0-32 normal Not Available [facility] ([facility]) [address] [place], [address], 12/27/2024 08:11:46 12/27/19 25 12/27/2024 LIPID PANEL cholesterol, total 193 mg/dL 100-19 9 normal Not Available [facility] ([facility]) [address] [place], [address], 12/27/2024 08:11:46 12/27/19 25 12/27/2024 LIPID PANEL triglyceride s 104 mg/dL 0-149 normal Not Available [facility] ([facility]) [address] [place], [address], 12/27/2024 08:11:46 12/27/19 25 12/27/2024 LIPID PANEL HDL cholesterol 56 mg/dL >39 normal Not Available [facility] ([facility]) [address] [place], [address], 12/27/2024 08:11:46 12/27/19 25 12/27/2024 LIPID PANEL VLDL cholesterol macho 19 mg/dL 5-40 Not Available [facility] ([facility]) [address] [place], [address], 12/27/2024 08:11:46 12/27/19 25 12/27/2024 LIPID PANEL LDL chol calc ([facility]) 118 mg/dL 0-99 above high normal Not Available [facility] ([facility]) [address] [facility], [place], [address], 12/27/2024 08:11:46 12/27/19 25 12/27/2024 LIPID PANEL LDL calc comment: CUST[employer]ER [employer] SALES CONSULTANT Not Available [facility] ([facility]) [address] [facility], [place], [address], 12/27/2024 08:11:46 12/27/19 25 12/27/2024 VITAM IN B12 AND FOLAT E vitamin B12 667 pg/mL 232-12 45 normal Not Available [facility] ([facility]) [address] [facility], [place], [address], 12/27/2024 08:11:47 12/27/1912/27/2024 VITAM IN B12 AND FOLAT E folate (folic acid), serum 12.5 NG/mL >3.0 normal A serum folat e zev ntrat ion of less than 3.1 ng/mL is consi dered to repre sent clini macho defic iency . Not Available [facility] ([facility]) [address] [facility], [place], [address], 12/27/2024 08:11:47 12/27/1912/27/2024 VITAM IN D, 25-HY DROXY vitamin D, [...] 1. IOM (Inst itute of Medic ine). 2010. Dieta ry refer ence bruce es for calci um and D. Tye crawford [place]: The Natio nal [employer] . 2. Kaela manrique [place], Binkl ey [place], Bisch off-F errar i BENITO, et al. Evalu ation , treat ment, and preve ntion of vitam in D defic iency : an Endoc rine Socie ty clini macho pract ice guide line. JCEM. 2010; 96(7) :1911 -30. Not Available [facility] ([facility]) [address] [facility], [place], [address], 12/27/2024 08:11:47 12/27/19 25 12/27/2024 HIV AB/P2 4 AG WITH REFLE X HIV Ab/P24 Ag screen Non Reacti ve non reacti ve HIV-1 /HIV- 2 antib odies and HIV-1 p24 antig en were NOT detec sanford. There is no labor atory evide nce of HIV infec tion. HIV Negat betty Not Available [facility] ([facility]) [address] [facility], [place], [address], 12/27/2024 08:11:47 12/27/19 25 12/26/2024 HbA1c (hemo globi n A1c), blood HbA1c 10.2 Not Available [address], [address], 12/26/2024 13:42:34 03/31/20 25 03/31/2025 HbA1c (hemo globi n A1c), blood HbA1c 9.4 Not Available [address], [address], 03/30/2025 17:43:04 06/20/20 24 06/20/2024 US, abdom en, compl [facility]e [facility] [address] [place] [address] Phone: Fax: Name: UZIEL ROMAN BURGOS Exam Date: 024 : [birth year] Age 54 years Gender : F Access ion: [id number] Physic juan carlos: VICENTE MONTANA LE [place] [place] HSV: Outpat ient Exam: US [...] l renal diseas e. Thank you for michael dominguez us to assist in the care of this patien t. Electr onical ly signed by: Manfred Garcia MD 2023 11:04 AM EDT RP Workst ation: SEALWR [id number] Dictat ed By: Manfred Garcia Transc ribed By: Transc ribed On: 10:45 AM Electr onical ly signed by: Manfred Garcia Thank you [facility] Legall y authen ticate d by MATT CONNELLY MD 2023-0 06-20 10:45: 38 CC'ed Logic: Orderi ng Provid er: RUBÉN CARRERA CC Provid er: RUBÉN CARRERA Attend ing Provid er: RUBÉN ACRRERA Referr ing Provid er: RUBÉN CARRERA Admitt ing Provid er: RUBÉN CARRERA [email or web address] [facility] Centralized Scheduling [address] , [place], [address], 12/05/2024 10:47:19 07/01/20 24 07/01/2024 CT, foot, w/ contr ast No observ ation record ed. [address], [place], [address], 07/07/2024 09:55:44 07/02/20 24 07/01/2024 XR, foot, 3 or more view No observ ation record ed. [address], [place], [address], 07/07/2024 09:55:36 07/02/20 24 07/02/2024 US, doppl er, arter ial No observ ation record ed. [address], [place], [address], 07/07/2024 09:40:54 07/03/2007/03/2024 XR, foot, 3 or more view No observ ation record ed. [address], [place], [address], 07/07/2024 09:40:15 07/03/2007/03/2024 XR, chest No observ ation record ed. [address], [place], [address], 07/07/2024 09:40:29 07/12/2007/12/2024 XR, chest No observ ation record ed. [address], [place], [address], 07/14/2024 16:29:36 07/12/2007/12/2024 CT, ankle + foot, w/o contr ast No observ ation record ed. [address], [place], [address], 07/14/2024 16:29:54 07/14/20 24 07/14/2024 XR, foot No observ ation record ed. [address], [place], [address], 07/15/2024 12:51:13 08/04/20 24 08/04/2024 XR, foot No observ ation record ed. [address], [place], [address], 12/02/2024 18:01:47 08/26/20 24 08/25/2024 XR, foot, 3 or more view No observ ation record ed. [address], [place], [address], 12/02/2024 18:02:13 11/04/19 25 11/04/2024 XR, wrist No observ ation record ed. [address], [place], [address], 12/02/2024 18:02:32 11/04/19 25 11/04/2024 XR, wrist , 2 view No observ ation record ed. [address], [place], [address], 12/02/2024 18:02:47 11/04/19 25 11/04/2024 XR, foot, 2 view No observ ation record ed. [address], [place], [address], 12/02/2024 18:03:07 11/24/19 25 11/24/2024 CT, ankle + foot, w/o contr ast No observ ation record ed. [address], [place], [address], 12/02/2024 18:04:23 11/28/19 25 11/24/2024 imagi ng/di agnos tic resul t No observ ation record ed. [place] [address], [place], [address], 12/02/2024 18:04:49 12/27/19 XR, chest , 2 view No observ ation record ed. [address], [place], [address], 12/29/2024 15:19:21 12/29/19 25 12/28/2024 XR, chest , 2 view No observ ation record ed. [facility] (Radiology) [address] , [place], [address], 12/29/2024 09:10:23 02/06/20 25 02/05/2025 XR, foot No observ ation record ed. [email or web address] [facility] [address], [place], [address], 02/13/2025 09:41:18 03/09/20 25 03/09/2025 CT, foot, w/ contr ast No observ ation record ed. [email or web address] [facility] [address], [place], [address], 03/09/2025 10:03:36 04/06/20 25 04/06/2025 XR, foot No observ ation record ed. [facility] [address], [place], [address], 04/10/2025 11:01:56 Result Notes Documentation Provider Name and Address Organization Details Recorded Time [facility] : GT Darleen servin, [employer] 12/04/2024 13:13:35 Problems Name Problem SNOMED Code Status Onset Date Resolution Date Notes Provider Name and Address Organization Details Recorded Time Obstruct betty sleep apnea syndrome 93715910 Active 2023 Linn [place], [facility] [address] [place] [address], [id number] , [employer] 4 18:19:09 Cellulit is of right lower limb 12798187290 525634 Active 2023 Darleen servin, [employer] 4 13:45:35 Diabetes mellitus 28690358 Active 2023 Problem Code: 250; Problem Code Type: ICD-9; Darleen servin, [employer] 4 11:54:14 Type 2 diabetes mellitus without complica tion 492411031 Active 2024 Problem Code: 250.00; Problem Code Type: ICD-9; Darleen servin, [employer] 5 13:42:32 Uncontro lled type 2 diabetes mellitus 231249628 Active 2024 Darleen servin, [employer] 5 17:43:03 Iron deficien cy anemia 31884991 Completed 201503/27/2016 Problem Code: D50.9; Problem Code Type: ICD-10; Laura servin, [employer] 3 16:02:19 Hypothyr oidism 75711912 Active 2014 Laura servin, [employer] 3 16:02:19 Uncontro lled type 2 diabetes mellitus 109438135 Completed 201401/27/2016 Darleen servin, [employer] 5 17:43:03 Uncontro lled type 2 diabetes mellitus 526336581 Completed 201306/12/2015 Darleen servin, [employer] 5 17:43:03 Severe obesity 01502674166 104 Active 2014 Problem Code: E66.01; Problem Code Type: ICD-10; Laura servin, [employer] 3 16:02:19 Severe obesity 40868378444 104 Completed 201408/27/2015 Problem Code: E66.01; Problem Code Type: ICD-10; Laura servin, [employer] 3 16:02:19 Refracto ry migraine with aura 273979814 Completed 201408/25/2015 Problem Code: G43.119; Problem Code Type: ICD-10; Laura servin, [employer] 3 16:02:19 Hyperten sive disorder 41429848 Completed 201301/27/2016 Problem Code: I10; Problem Code Type: ICD-10; Laura servin, [employer] 3 16:02:19 Pneumoni a 472312854 Completed 201508/08/2016 Problem Code: J18.9; Problem Code Type: ICD-10; Laura servin, [employer] 3 16:02:19 Pain of right shoulder joint 49232564767 520781 Completed 201410/24/2015 Problem Code: M25.511; Problem Code Type: ICD-10; Laura servin, [employer] 3 16:02:19 Pain of shoulder region 94240799 Completed 201408/07/2015 Laura servin, [employer] 3 16:02:19 Pain in left knee Completed 201407/24/2015 Problem Code: M25.562; Problem Code Type: ICD-10; Laura servin, [employer] 3 16:02:19 Pain in left knee Completed 201306/12/2015 Problem Code: M25.562; Problem Code Type: ICD-10; Laura servin, [employer] 3 16:02:19 Dyspnea 352475303 Completed 201505/13/2016 Problem Code: R06.02; Problem Code Type: ICD-10; Laura servin, [employer] 3 16:02:19 Type 2 diabetes mellitus without complica tion 762329516 Completed 201312/23/2014 Problem Code: 250.00; Problem Code Type: ICD-9; Darleen Bean malathi, [employer] 5 13:42:32 Diabetes mellitus 91551473 Completed 201406/12/2015 Problem Code: 250; Problem Code Type: ICD-9; Darleen Bean malathi, [employer] 4 11:54:14 Morbid obesity 600268153 Completed 201408/27/2015 Problem Code: 278.01; Problem Code Type: ICD-9; Laura servin, [employer] 16:02:19 Morbid obesity 432451903 Completed 201406/09/2016 Problem Code: 278.01; Problem Code Type: ICD-9; Laura servin [employer] 16:02:19 Benign essentia l hyperten basil 3719905 Active 2013 Problem Code: 401.1; Problem Code Type: ICD-9; Laura servin [employer] 16:02:19 Knee pain Completed 201407/24/2015 Problem Code: 719.46; Problem Code Type: ICD-9; Laura servin [employer] 16:02:19 Shoulder joint pain 447654834 Completed 201408/07/2015 Problem Code: 719.41; Problem Code Type: ICD-9; Laura servin [employer] 16:02:19 Shoulder joint pain 971357318 Completed 201410/24/2015 Problem Code: 719.41; Problem Code Type: ICD-9; Laura servin [employer] 16:02:19 Problem Notes None recorded. Procedures Surgical History Date Name Laterality Status Provider Name and Address Organization Details Recorded Time 07/06/20 24 debridement of toe completed [employer]. 08/26/2024 11:57:54 07/02/20 24 amputation of toe completed [employer]. 08/26/2024 11:57:20 11/09/19 24 Most Recent Mammogram completed Darleen [employer]. 12/07/2023 10:08:57 09/25/20 14 Total knee arthroplasty completed Lauragerson Walsh [employer] 07/27/2023 16:02:20 Back Surgery completed Cami Gunn [employer]. 07/26/2023 14:32:40 Joint Replacement completed Cami Gunn [employer]. 07/26/2023 14:32:41 Imaging Results None recorded. Procedure Notes None recorded. Medical Equipment None Reported. Allergies Allergen ID Allergen Name Allergen Category Reaction Reaction Severity Criticality Documentation Date Start Date Code Code System Note Provider Name and Address Organization Details Recorded Time 02909 Product containin g angiotens in-conver ting enzyme inhibitor (product) medicatio n cough moderate Not available 06/06/2022 94439 009 SNOMED Aller gyCod e: ''; Aller gyNam e: 'REILLY Inhib itors '; Aller gyCon ceptT ype: ''; Laura Nico servin, [employer] 3 16:02:19 16453 metformin hydrochlo ride medicatio n Not available Not available Not available 06/06/2022 52232 3 RxNorm Aller gyCod e: ''; Aller gyNam e: 'Metf ormin HCl'; Aller gyCon ceptT ype: ''; Laura Nico servin, [employer] 3 16:02:19 45125 Inapsine medicatio n Not available Not available Not available 06/06/2022 32834 3 RxNorm Aller gyCod e: '2025 03'; Aller gyNam e: 'Inap sine' ; Aller gyCon ceptT ype: 'RxNO RM'; Laura Nico servin, [employer] 3 16:02:19 66886 Avelox medicatio n Not available Not available Not available 06/06/2022 06357 6 RxNorm Laura Walsh malathi, [employer] 3 16:02:19 73887 ibuprofen medicatio n Not available Not available Not available 06/06/2022 5640 RxNorm Laura Nico servin, [employer] 3 16:02:19 76145 Rocephin medicatio n Not available Not available Not available 06/06/2022 9449 RxNorm Laura Nico servin, [employer] 3 16:02:19 12149 ibuprofen medicatio n Not available Not available Not available 07/26/2023 5640 RxNorm Cami [place] null, [employer] 14:32:57 71110 Rocephin medicatio n Not available Not available Not available 07/26/2023 9449 RxNorm Cami [place] null, [employer] 14:33:26 56581 Avelox medicatio n Not available Not available Not available 07/26/2023 39379 6 RxNorm Cami Luis A null, [employer] 14:33:36 19708 Inapsine medicatio n Not available Not available Not available 07/26/202318321 3 RxNorm Cami Luis A null, [employer] 14:33:46 Medications Name Sig Start Date Stop Date Status Note LastModified by Organization Details LastModified Time spray kit 10ml USE 10 ML FOR MEDICATI ON ADMINIST RATION WITH SPRAY BOTTLE- DIRECTIO NS FOR USE (SK), #2 30ML SPRAY BOTTLES, #1 FUNNEL, SALINE 5ML VIALS #600ML 10/29 completed Not Available Not Available Not Available clindamyc in/mupiro beck/itrac onazole 150/20/50 mg topical capsule [83813] MIX THE CONTENTS OF 1 CAPSULE WITH [...] ONE TABLET BY MOUTH TWICE DAILY FOR 90 DAYS active Not Available Not Available No t [...] ONE vial via nebulize r four times daily as directed active Not Available Not [...] ONE TABLET BY MOUTH THREE TIMES DAILY FOR 30 DAYS active Not Available Not Available No t Available doxycycli ne hyclate 100 mg capsule TAKE ONE CAPSULE BY MOUTH EVERY TWELVE HOURS 05/08 completed Not Available Not Available Not Available clindamyc in HCl 300 mg capsule TAKE ONE CAPSULE BY MOUTH THREE TIMES DAILY for cellulit is for 2 weeks active Not Available Not Available No t [...] TAKE 1 TABLET DAILY ON DAYS 2-5 03/31 completed Not Available Not Available Not Available metoprolo l tartrate 100 mg tablet Take 1 tablet(s ) by mouth bid 01/26 completed Not Available Not Available Not Available Novolin N NPH U-100 Insulin isophane 100 unit/mL subcutane ous susp Inject 6 units qHS subcutan eously 2015 active Not Available Not Available Not Avai lable tizanidin e 4 mg tablet TAKE ONE TABLET BY MOUTH TWICE DAILY NEEDED active Not Available Not Available No t Available clarithro mycin 500 mg tablet TAKE ONE [...] TABLET BY MOUTH TWICE DAILY NEEDED FOR PAIN active Not Available Not [...] ONE TABLET BY MOUTH TWICE DAILY FOR 90 DAYS active Not Available Not Available No t Available levothyro xine 88 mcg tablet TAKE ONE TABLET BY MOUTH DAILY 02/07 completed Not Available Not Available Not Available famotidin e 20 mg tablet Take 1 tablet daily 07/13 completed Not Available Not Available Not Available prednisol one acetate 1 % eye drops,arianna pension INSTILL ONE drop IN THE AFFECTED EYE four times a DAY FOR SEVEN DAYS THEN decrease TO TWICE DAILY FOR 14 DAYS active Not Available Not Available No t Available methocarb ailyn 750 mg tablet 07/26 completed Not Available Not Available Not Available Percocet 10 mg-325 mg tablet Take 1 tablet(s ) by mouth q6h prn for pain 08/27 completed Not Available Not Available Not Available Imodium A-D 2 mg tablet as directed 2024 active Not Available Not Available Not Avai lable gentamici n 0.3 % eye drops INSTILL ONE drop operativ e eye four times a DAY FOR SEVEN DAYS active Not Available Not Available No t Available gabapenti n 800 mg tablet Take 1 [...] hours NEEDED, FOR cough AND congesti on 03/31 completed Not Available Not Available Not Available pantopraz ole 40 mg tablet,de layed [...] completed Not Available Not Available Not Available lidocaine 5 % topical patch apply ONE PATCH topicall y TO affected AREA FOR 12 hours THEN REMOVE FOR 12 hours AND MAY REPEAT NEEDED FOR PAIN active Not Available Not Available No t Available levothyro xine 150 mcg tablet Take [...] completed Not Available Not Available Not Available [place] 10 mg-325 mg tablet Take 1 tablet(s ) by mouth q6h prn 01/26 completed Not Available Not Available Not Available furosemid e 20 mg tablet Take 1 pill daily 04/29 completed Not Available Not Available Not Available ergocalci ferol (vitamin D2) 1,250 mcg (50,000 unit) capsule Take 1 capsule every week by oral route for 90 days. 2024 active Not Available Not Available Not Avai lable cefuroxim e axetil 500 mg tablet Take [...] sulfate HFA 90 mcg/actua tion aerosol inhaler inhale TWO puffs by MOUTH every FOUR hours as needed active Not Available Not Available No t Available Naprosyn 500 mg tablet Take 1 tablet(s ) by mouth bid 06/12 completed Not Available Not Available Not Available ondansetr on 4 mg disintegr ating tablet DISSOLVE ONE TABLET ON THE TONGUE every FOUR TO SIX hours as needed active Not Available Not [...] every 3 hours by injectio n route. 03/[address] Goddard Not Available Not Available Not Available ropinirol e 4 mg tablet 07/26 completed Not Available Not Available Not Available oxycodone 5 mg tablet TAKE ONE TABLET BY MOUTH EVERY 4 TO 6 HOURS NEEDED FOR post op pain MAY CAUSE DROWSINE SS 12/26 completed Not Available Not Available Not Available hydroxyzi ne pamoate 25 mg capsule TAKE ONE CAPSULE BY MOUTH THREE TIMES DAILY NEEDED FOR 30 DAYS active Not Available Not Available No t [...] 100 unit/mL (3 mL) subcutane ous pen Inject 30 units twice a day by subcutan eous route. active Not Available Not Available No [...] Not Available Not Available Not Avai lable Eye Itch Relief 0.025 % (0.035 %) drops instill ONE drop into BOTH eyes twice daliy active Not Available Not Available No t Available fenofibra te 54 mg tablet TAKE ONE [...] completed Not Available Not Available Not Available Linzess 145 mcg capsule TAKE ONE CAPSULE BY MOUTH EVERY DAY in THE morning active Not Available Not Available No t Available Humulin 70/30 U-100 Insulin KwikPen 100 unit/mL subcutane ous INJECT 60 uns SUBCUTAN EOUSLY TWICE DAILY active Not Available Not Available No t Available Sivextro 200 mg tablet 12/26 completed Not Available Not Available Not Available Jardiance 10 mg tablet Take 1 tablet(s ) by mouth qam 01/26 completed Not Available Not Available Not Available Trelegy Ellipta 100 mcg-62.5 mcg-25 mcg powder for inhalatio n inhale ONE PUFF by MOUTH ONCE daily active Not Available Not Available No t [...] Not Available Not Available No t Available Mounjaro 2.5 mg/0.5 mL subcutane ous pen injector inject 2.5mg subcutan eously every week for 4 weeks, then inject 5mg subcutan eously every week active Not Available Not Available No t [...] in Arterial blood by Pulse oximetry Systolic And Diastolic Provider Name and Address Organization Details Last Updated DateTime 5 167.64 cm 41.5 kg/m2 173655. 34 g 74 /min 87 % 87 % 131/82 mm[Hg] Darleen [employer] 5 14:03:24 Date Recorded Body height Body mass index (BMI) Body weight Heart rate Oxygen saturation Oxygen saturation in Arterial blood by Pulse oximetry Systolic And Diastolic Systolic And Diastolic Provider Name and Address Organization Details Last Updated DateTime 5 167.64 cm 41.6 kg/m2 933865. 83 g 86 /min 92 % 92 % 158/94 mm[Hg] 140/83 mm[Hg] Tran Correa [employer] 5 13:41:30 Date Recorded Body height Body mass index (BMI) Body weight Heart rate Oxygen saturation Oxygen saturation in Arterial blood by Pulse oximetry Systolic And Diastolic Systolic And Diastolic Systolic And Diastolic Provider Name and Address Organization Details Last Updated DateTime 4 167.64 cm 40.9 kg/m2 760780. 59 g 78 /min 91 % 91 % 181/83 mm[Hg] 170/91 mm[Hg] 139/82 mm[Hg] Autumn Sosa [employer] 4 14:42:11 Date Recorded Body height Body mass index (BMI) Body weight Heart rate Oxygen saturation Oxygen saturation in Arterial blood by Pulse oximetry Systolic And Diastolic Provider Name and Address Organization Details Last Updated DateTime 4 167.64 cm 40 kg/m2 583375. 91 g 79 /min 92 % 92 % 139/79 mm[Hg] Darleen Bean [employer] 4 15:08:07 Date Recorded Body height Body mass index (BMI) Body weight Heart rate Oxygen saturation Oxygen saturation in Arterial blood by Pulse oximetry Systolic And Diastolic Provider Name and Address Organization Details Last Updated DateTime 4 167.64 cm 42.9 kg/m2 537509. 57 g 61 /min 90 % 90 % 139/72 mm[Hg] Darleen Velascoy [employer] 4 11:52:41 Social History Question Answer Notes LastModified by Organizat ion Details LastModified Time Tobacco Smoking Status Current Every Day Smoker Cami servin [employer]. 07/26/2023 14:32:40 Do You Have An Advance [...] Do You Have A Medical Power Of Rib Bender? No Information not available 07/26/2023 What Was The Date Of Your Most Recent Tobacco Screening? 03/31/2025 Information not available 03/31/2025 What Is Your Current Pack Years? [email or web address] [...] What Date Was Tobacco Cessation Counseling Provided? 03/31/2025 Information not available 03/31/2025 How Many Years Have You Smoked Tobacco? [...] diabetes mellitus type 2 Relati ve: ''; [email or web address] Not available 07/27/2023 16:02:19 Unspecified Relation Family history of Hypertension Relati ve: ''; [email or web address] Not available 07/27/2023 16:02:19 Notes:*Procedure Description : Documented family medical history in mother*Relative: Mother *Procedure Description: Documented family medical history in father*Relative: Father *Procedure Description: Documented family medical history in brother*Relative: Brother Medical History Condition Response Emergency room visit since last appointm ent. N COPD Y Depression Y Hypothyroidism Y Arthritis Y Acid Reflux (GERD) Y High Cholesterol Y Fibromyalgia Y Headaches Y Hospitalizations N Thyroid Problems Y Diabetes Y Hypertension Y [...] PF 3 completed Linn Montana APRN [address] [place], [address], [employer] 07/26/2023 18:00:13 pneumococcal polysaccharide PPV23 3 completed Linn Montana APRN [address] [place], [address], [employer] 07/26/2023 18:00:13 Pneumococcal conjugate PCV 13 5 completed Laura servin, [employer] 07/27/2023 16:02:20 pneumococcal polysaccharide PPV23 4 completed Laura servin, [employer] 07/27/2023 16:02:20 Influenza, high-dose, quadrivalent, PF 0 completed Darleen servin, [employer] 02/07/2024 15:36:04 MMR 7 completed Darleen Bean null, [employer] 02/07/2024 15:36:04 COVID-19, mRNA, LNP-S, PF, 30 mcg/0.3 mL dose 1 completed Darleen Bean null, [employer] 02/07/2024 15:36:04 COVID-19, mRNA, LNP-S, PF, 30 mcg/0.3 mL dose 1 completed Darleen Bean null, [employer] 02/07/2024 15:36:04 pneumococcal polysaccharide PPV23 9 completed Darleen servin, [employer] 02/07/2024 15:36:04 pneumococcal polysaccharide PPV23 6 completed [facility]leen [place] [facility]athi, [facility] 02/07/2024 15:36:04 Influenza, split virus, trivalent, PF 9 completed Darleen Hodgelly malathi, [facility] [employer] 02/07/2024 15:36:04 Influenza, split virus, trivalent, PF 7 completed Darleen Chadron malathi, [place] [employer] 02/07/2024 15:36:04 Influenza, split virus, quadrivalent, PF 8 completed Darleen Hodgelly malathi, [place] [employer] 02/07/2024 15:36:04 Influenza, split virus, quadrivalent, PF 2 completed Darleen Hodgelly malathi, [place] [employer] 02/07/2024 15:36:04 Influenza, split virus, quadrivalent, PF 1 completed Darleen Hodgelly malathi, [place] [employer] 02/07/2024 15:36:04 Past Encounters Encounter ID Performer Location Encounter Start Date Encounter Closed Date Diagnosis/Indication Diagnosis SNOMED-CT Code Diagnosis ICD10 Code Diagnosis Note [id number] Linn Montana [place] [id number] 07/26/2023 13:56:26 07/26/2023 15:33:02 Abdominal pain 56850869 R10.9 Essential hypertension 67996632 I10 Hyperlipidemia 76282701 E78.5 Hypothyroidism 48462101 E03.9 Vitamin D deficiency 347 67967 E55.9 Vitamin B deficiency 479 28415 E53.9 Administra tion of influenza vaccine 09414023 Z23 Diarrhea 01552892 R19.7 Type 2 norma betes mellitus without complication 984587351 E11.9 Diabetic p eripheral neuropathy 741307283 E11.40 Chronic low back pain 27 4239227 M54.50 Nausea 973816878 R11.0 Gastroesop hageal reflux disease without esophagitis 402725101 K21.9 Restless legs 44720450 G 25.81 Primary insomnia 0048030 F51.01 Dysthymia 09580454 F34.1 Body mass index 40+ - severely obese 792517864 Z68.41 [id number] Linn Montana[address] [address] 08/27/2023 10:16:00 08/27/2023 11:12:34 Cellulitis of lower limb 433187015 L03.119 Diabetic p eripheral neuropathy 259798087 E11.40 Constipation 13813973 K5 9.00 Abdominal pain 60212001 R10.9 Body mass index 40+ - severely obese 829213160 Z68.41 [id number] [place] [phone] 09/17/2023 13:19:20 09/17/2023 14:45:00 Crusted scabies 635848094 B86 Pruritic rash 97813065 L 28.2 Body mass index 40+ - severely obese 222494596 Z68.41 [id number] Linn Montana[address] [address] 10/29/2023 09:36:41 10/29/2023 10:34:44 Diabetes mellitus 15753915 E11.9 Screening for malignant neoplasm of breast 327565896 Z12.39 Long-term drug therapy 873156928 Z79.899 Essential hypertension 80897824 I10 Chronic low back pain 27 1295377 M54.50 Dysthymia 59111251 F34.1 Hyperlipidemia 01095929 E78.5 Diabetic p eripheral neuropathy 745702551 E11.40 Type 2 norma betes mellitus without complication 049537631 E11.9 Hypothyroidism 34031701 E03.9 Cellulitis of lower limb 635807399 L03.119 Nausea 399042033 R11.0 Gastroesop hageal reflux disease without esophagitis 036066017 K21.9 Restless legs 65218361 G 25.81 Primary insomnia 0928881 F51.01 Pruritic rash 82382906 L 28.2 Vitamin D deficiency 347 03823 E55.9 Chronic ob structive pulmonary disease 91651152 J44.9 Disorder of vitamin C 38 3648787 E54 Noncomplia nce with treatment 6528026 Z91.199 Body mass index 40+ - severely obese 981414773 Z68.41 [id number] Linn Montana [place] [address] 10/31/2023 10:28:26 10/31/2023 10:37:58 Needs assistance with community resources 2722028142 9102 Z76.89 CHW assistance with food [id number] Linn Montana [place] [address] 02/07/2024 15:24:46 02/07/2024 16:20:04 Type 2 diabetes mellitus without complication 337336314 E11.9 Pain in throat 235228869 R07.0 Essential hypertension 55848526 I10 Hyperlipidemia 54133446 E78.5 Vitamin D deficiency 347 37129 E55.9 Hypothyroidism 93794142 E03.9 Dysthymia 09640361 F34.1 Diabetic p eripheral neuropathy 101625038 E11.40 Diarrhea 81903852 R19.7 Gastroesop hageal reflux disease without esophagitis 050963771 K21.9 Restless legs 43099832 G 25.81 Muscle pain 15707668 M79 .10 Primary insomnia 4839692 F51.01 Disorder of vitamin C 38 0732077 E54 Chronic ob structive pulmonary disease 90026934 J44.9 Body mass index 40+ - severely obese 118580043 Z68.41 [id number] [place] [address] 03/17/2024 14:41:41 03/17/2024 15:47:53 Nausea 879661322 R11.0 Diabetic p eripheral neuropathy 630502844 E11.40 Noncomplia nce with treatment 5364923 Z91.199 Goiter 4621042 E04.9 Hypothyroidism 25543783 E03.9 Body mass index 40+ - severely obese 261350116 Z68.41 [id number] Linn Montana [place] [address] 03/18/2024 14:56:41 03/18/2024 15:37:20 Pressure injury of buttock 822594749 L89.309 Body mass index 40+ - severely obese 797815261 Z68.41 [id number] [place] [address] 04/15/2024 14:46:14 04/15/2024 15:50:21 Panic disorder 235348085 F41.0 Diabetic p eripheral neuropathy 975536092 E11.40 Type 2 norma betes mellitus without complication 564554602 E11.9 Body mass index 40+ - severely obese 545787973 Z68.41 [id number] [place] [address] 05/08/2024 14:04:04 05/08/2024 16:02:33 Type 2 diabetes mellitus without complication 733932060 E11.9 Hyperthyroidism 71745012 E05.90 Panic disorder 920274978 F41.0 Essential hypertension 40718044 I10 Chronic low back pain 27 7275923 M54.50 Dysthymia 52760200 F34.1 Hyperlipidemia 86742802 E78.5 Diabetic p eripheral neuropathy 956372014 E11.40 Diarrhea 02859587 R19.7 Nausea 515700842 R11.0 Gastroesop hageal reflux disease without esophagitis 927046213 K21.9 Restless legs 71747994 G 25.81 Muscle pain 54183200 M79 .10 Primary insomnia 5568382 F51.01 Disorder of vitamin C 38 5706553 E54 Vitamin D deficiency 347 93829 E55.9 Acute sinusitis 22835730 J01.90 Pain in right foot 18836 10260 82808 M79.671 Chronic ulcer of foot 42 9722428 L97.509 Body mass index 40+ - severely obese 762303418 Z68.41 [id number] [place] [phone] 06/12/2024 14:50:13 06/12/2024 15:35:30 Diabetic peripheral neuropathy 147182201 E11.40 Pain in right foot 12270 27505 49535 M79.671 Abdominal pain 42668455 R10.9 Obstructiv e sleep apnea syndrome 01531863 G47.33 Lymphedema of bilateral lower limbs 6346309280 4551054 I89.0 Diabetic foot ulcer 3710 09422 E13.621 Body mass index 40+ - severely obese 140998323 Z68.41 [id number] [place] [address] 08/26/2024 11:28:16 08/26/2024 12:07:57 Diabetes mellitus 34741413 E11.9 Chronic ob structive pulmonary disease 56661173 J44.9 Essential hypertension 43702832 I10 Chronic low back pain 27 3563565 M54.50 Dysthymia 52566097 F34.1 Hyperlipidemia 75897063 E78.5 Diabetic p eripheral neuropathy 466351511 E11.40 Type 2 norma betes mellitus without complication 434389102 E11.9 Panic disorder 631533551 F41.0 Diarrhea 56888154 R19.7 Nausea 172869259 R11.0 Gastroesop hageal reflux disease without esophagitis 891422248 K21.9 Restless legs 38667253 G 25.81 Muscle pain 32758521 M79 .10 Pain in right foot 16543 46941 14512 M79.671 Primary insomnia 1932538 F51.01 Disorder of vitamin C 38 1164417 E54 Vitamin D deficiency 347 30744 E55.9 Body mass index 40+ - severely obese 156761451 Z68.41 Amputated toe 815858803 Z89.424 [id number] [place] [address] 12/26/2024 13:31:16 12/26/2024 14:58:54 Type 2 diabetes mellitus without complication 218638336 E11.9 Dyspnea 895192583 R06.00 Chronic ob structive pulmonary disease 57519177 J44.9 Fatigue 13595710 R53.83 HIV screening 778873448 Z11.4 Hyperlipidemia 81293884 E78.5 Vitamin D deficiency 347 09003 E55.9 Vitamin B deficiency 479 85277 E53.9 Essential hypertension 13636267 I10 Dysthymia 63905309 F34.1 Diabetic p eripheral neuropathy 418720114 E11.40 Panic disorder 056265303 F41.0 Diarrhea 78212635 R19.7 Nausea 077488646 R11.0 Gastroesop hageal reflux disease without esophagitis 076451068 K21.9 Restless legs 52521266 G 25.81 Primary insomnia 8115155 F51.01 Disorder of vitamin C 38 0239449 E54 Chronic ulcer of skin 19 768913 L98.499 Body mass index 40+ - severely obese 586509137 Z68.41 [id number] Linn Montana[address] [address] 03/31/2025 13:01:26 03/31/2025 14:19:35 Uncontrolled type 2 diabetes mellitus 682640754 E11.65 Type 2 norma betes mellitus without complication 056590505 E11.9 Chronic constipation 236 970660 K59.09 Chronic ob structive pulmonary disease 38195871 J44.9 Essential hypertension 95959260 I10 Dysthymia 57706030 F34.1 Hyperlipidemia 35358540 E78.5 Diabetic p eripheral neuropathy 684949171 E11.40 Panic disorder 955780304 F41.0 Nausea 102893640 R11.0 Gastroesop hageal reflux disease without esophagitis 123293940 K21.9 Restless legs 70186823 G 25.81 Muscle pain 96185625 M79 .10 Primary insomnia 2723649 F51.01 Disorder of vitamin C 38 5258000 E54 Vitamin D deficiency 347 67125 E55.9 Body mass index 40+ - severely obese 699386268 Z68.41 Health Concerns Section Related Observation LastModified by Organization Detai ls LastModified Time None Recorded Concern Status LastModified by Organization Details LastModified Time None Recorded Advance Directives Directive N: Payers Insurance Date Sequence Insurance Name Policy Number Policy Gonzales Covered Member ID Gonzales Member ID Guarantor Name 11/19/2023 1 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 Seema Delacruz 03/23/2025 [place]IC[place] [employer] [facility] KYMCRWP 0 Seema Delacruz [id number] Seema Delacruz 04/06/2025 1 [employer] (MEDICARE REPLACEMENT/ ADVANTAGE - HMO) Seema Delacruz [id number] Seema Delacruz 03/23/2025 3 AETNA - DUAL ELIGIBLE (MEDICARE REPLACEMENT/ ADVANTAGE - PPO) Seema Delacruz [id number] Seema Delacruz 04/06/2025 2 AETNA BETTER HE[place] (MEDICAID HMO) Seema Delacruz [id number] Seema Delacruz 03/23/2025 1 [place]MEDICARE REPLACEMENT HMO) [id number] Seema Delacruz [id number] Seema Delacruz 03/23/2025 1 AETNA (MEDICARE REPLACEMENT/ ADVANTAGE - HMO) [id number] Seema Delacruz [id number] Seema Delacruz 03/23/2025 3 [employer] (MEDICARE REPLACEMENT/ ADVANTAGE - PPO) [id number] [place] Seema Delacruz [id number] Seema Delacruz 04/06/2025 [place] CIG[place] [facility] Seema Delacruz [id number] Seema Delacruz Notes Date Note Type Note Provider Name and Address Organization Details Recorded Time 05/08/2024 text/html pt here today fo r [...] new med. pt voiced understanding. Darleen servin, [employer] 05/08/2024 16:04:58 06/12/2024 text/html pt here today requesting a referral to [facility] wound care and lymphedema clinic. pt states that she sees wound care now in [facility] only once a month. pt states that she did see dr lopez and then went to [place] and now [facility]. on exam, pt has 3 circular open [...] at night with 3L oxygen. Linn Montana, SHIRA [address] [facility], [place], [address], [employer] 06/12/2024 18:21:16 08/26/2024 text/html pt here [...] an I&D on 07/14. pt was at [facility] for [facility] days and [facility] [...] open area on lateral foot. Linn Rubén, CERT OCCUPATIONAL THERAPY ASST [address] [place], [address], [employer] 08/26/2024 13:05:44 12/26/2024 text/html pt here today [...] more and stop smoking cigs. Linn Montana, CERT OCCUPATIONAL THERAPY ASST [address] [facility], [place], [address], [employer] 12/26/2024 15:43:32 03/31/2025 text/html pt here today fo r medication refills. pt states shes doing well on current medication regime. pt states that she is having some constipation. pt has a pain pump with dilaudid. pt states that she will go a few days without BM. pt states that she has tried miralax and colace. i will order linzess. educated pt on new med. pt voiced understanding. pt states that she has her other cataract sx in a couple of weeks and then she is doing a hyperbaric chamber on the wound on her left foot. Linn Montana APRN [address] [place], [address], [facility] [employer] 03/31/2025 16:01:32 OBGyn Episode No OBEpisode recorded.
--- OUTSIDE RECORDS SUMMARY | 2025-04-15 10:21 | XMS_ITS | Referral Summary ---
Author Organization [facility] ([place], [place], [place], [place]) Address [address] [place] [address] Care Team Providers Care Senior Data Integration Developer Name Role Phone Unavailable Primary Care Provider [...]
--- OUTSIDE RECORDS SUMMARY | 2025-04-15 10:21 | XMS_ITS | Continuity of Care Document ---
Author Organization [place] - [email or web address] [facility] Address [address] [place] [id number] Assessment No assessment recorded. Plan of Treatment Reminders Order Date Submit Date Provider Last Modified By Organization Details Last Modified Time Details Appointments None recorded. Lab HbA1c (hemoglobin A1c), blood 2024 025 [email or web address] [facility], [address] [place] [address], [phone], 5 14:08:02 Referral None recorded. Procedures None recorded. Surgeries None recorded. Imaging None recorded. Medication Orders Linzess 145 mcg capsule 2024 025 [facility], [address] [place] [address], [address], 5 14:10:05 trazodone 150 mg tablet 2024 025 [facility], [address] [place] [address], [address], 5 15:14:40 albuterol sulfate 0.63 mg/3 mL solution for nebulizatio n 2024 025 [facility], [address] [place] [address], [address], 5 15:14:46 Ventolin HFA 90 mcg/actuati on aerosol inhaler 2024 025 [facility], [address] [place] [address], [address], 5 15:14:32 Trelegy Ellipta 100 mcg-62.5 mcg-25 mcg powder for inhalation 2024 025 [facility], [address] [place] [address], [address], 5 15:14:36 duloxetine 60 mg capsule,del ayed release 2024 025 [facility], [address] [place] [address], [address], 5 15:14:44 escitalopra m 20 mg tablet 2024 025 [facility], [address] [place] [address], [address], 5 15:14:44 ropinirole 3 mg tablet 2024 025 [facility], [address] [place] [address], [address], 5 15:14:58 ondansetron 4 mg disintegrat ing tablet 2024 025 [facility], [address] [place] [address], [address], 5 15:14:36 carvedilol 25 mg tablet 2024 025 [facility], [address] [place] [address], [address], 5 15:14:48 Lasix 40 mg tablet 2024 025 [facility], [address] [place] [address], [address], 5 15:14:46 isosorbide dinitrate 30 mg tablet 2024 025 [facility], [address] [place] [address], [address], 15:14:41 lisinopril 2.5 mg tablet 2024 025 [facility], [address] [place] [address], [address], 15:14:44 Vistaril 25 mg capsule 2024 025 [facility], [address] [place] [address], [address], 14:10:04 gabapentin 600 mg tablet 2024 025 [facility], [address] [place] [address], [address], 14:10:05 fenofibrate 54 mg tablet 2024 025 [facility], [address] [place] [address], [address], 15:15:01 simvastatin 40 mg tablet 2024 025 [facility], [address] [place] [address], [address], 15:14:38 tizanidine 4 mg tablet 2024 025 [facility], [address] [place] [address], [address], 15:14:58 Vitamin C 500 mg chewable tablet 2024 025 [facility], [address] [place] [address], [address], 5 17:00:44 ergocalcife rol (vitamin D2) 1,250 mcg (50,000 unit) capsule 2024 025 [facility], [address] [place] [address], [address], 5 17:00:45 pantoprazol e 40 mg tablet,jerel yed release 2024 025 [facility], [address] [place] [address], [address], 5 15:14:41 Lantus Solostar U-100 Insulin 100 unit/mL (3 mL) subcutaneou s pen 2024 025 [facility], [address] [place] [address], [address], 5 14:10:06 Mounjaro 2.5 mg/0.5 mL subcutaneou s pen injector 2024 025 [facility], [address] [place] [address], [address], 5 15:14:34 Humulin 70/30 U-100 Insulin KwikPen 100 unit/mL subcutaneou s 2024 025 [facility], [address] [place] [address], [address], 5 15:14:40 Patient TargetsNo targets recorded. Patient InstructionsNo instructions recorded. Reason for Referral None Reported. Results Created Date Observation Date Name Description Value Unit Range Abnormal Flag Note LastModifiedBy Organization Detail LastModifiedTime 03/31/2003/31/2025 HbA1c (hemo globi n A1c), blood HbA1c 9.4 Not Available [address], [address], 03/30/2025 17:43:04 03/09/20 25 03/09/2025 CT, foot, w/ contr ast No observ ation record ed. [email or web address] [facility] [address], [place], [address], 03/09/2025 10:03:36 04/06/2004/06/2025 XR, foot No observ ation record ed. [facility] [address], [place], [address], 04/10/2025 11:01:56 Result Notes None recorded. Problems Name Problem SNOMED Code Status Onset Date Resolution Date Notes Provider Name and Address Organization Details Recorded Time Obstruct betty sleep apnea syndrome 57755457 Active 2023 Linn Montana, [employer] [address] [place] [address], [phone] [facility] [employer] 4 18:19:09 Cellulit is of right lower limb 27420436579 236496 Active 2023 Darleen Bean [employer], [employer] 4 13:45:35 Diabetes mellitus 87483583 Active 2023 Problem Code: 250; Problem Code Type: ICD-9; Darleen servin, [employer] 4 11:54:14 Type 2 diabetes mellitus without complica tion 937992676 Active 2024 Problem Code: 250.00; Problem Code Type: ICD-9; Darleen servin, [employer] 5 13:42:32 Uncontro lled type 2 diabetes mellitus 685279969 Active 2024 Darleen servin, [employer] 5 17:43:03 Iron deficien cy anemia 30072979 Completed 201503/27/2016 Problem Code: D50.9; Problem Code Type: ICD-10; Laura servin, [employer] 3 16:02:19 Hypothyr oidism 65453893 Active 2014 Laura servin, [employer]. 3 16:02:19 Uncontro lled type 2 diabetes mellitus 855299837 Completed 201401/27/2016 Darleen servin, [employer] 5 17:43:03 Uncontro lled type 2 diabetes mellitus 651455481 Completed 201306/12/2015 Darleen servin, [employer]. 5 17:43:03 Severe obesity 63869571764 104 Active 2014 Problem Code: E66.01; Problem Code Type: ICD-10; Laura servin [employer] 3 16:02:19 Severe obesity 61325518822 104 Completed 201408/27/2015 Problem Code: E66.01; Problem Code Type: ICD-10; Laura servin [employer]. 3 16:02:19 Refracto ry migraine with aura 019274431 Completed 201408/25/2015 Problem Code: G43.119; Problem Code Type: ICD-10; Laura servin [employer]. 3 16:02:19 Hyperten sive disorder 48225405 Completed 201301/27/2016 Problem Code: I10; Problem Code Type: ICD-10; Laura servin [employer]. 3 16:02:19 Pneumoni a 445687778 Completed 201508/08/2016 Problem Code: J18.9; Problem Code Type: ICD-10; Laura servin [employer]. 3 16:02:19 Pain of right shoulder joint 81022452645 443729 Completed 201410/24/2015 Problem Code: M25.511; Problem Code Type: ICD-10; Laura servin [employer] 3 16:02:19 Pain of shoulder region 76160717 Completed 201408/07/2015 Laura servin, [employer]. 3 16:02:19 Pain in left knee Completed 201407/24/2015 Problem Code: M25.562; Problem Code Type: ICD-10; Laura servin, [employer] 3 16:02:19 Pain in left knee Completed 201306/12/2015 Problem Code: M25.562; Problem Code Type: ICD-10; Laura servin, [employer] 3 16:02:19 Dyspnea 560380632 Completed 201505/13/2016 Problem Code: R06.02; Problem Code Type: ICD-10; Laura servin, [employer] 3 16:02:19 Type 2 diabetes mellitus without complica tion 632215797 Completed 201312/23/2014 Problem Code: 250.00; Problem Code Type: ICD-9; Darleen servin, [employer]. 5 13:42:32 Diabetes mellitus 30466359 Completed 201406/12/2015 Problem Code: 250; Problem Code Type: ICD-9; Darleen servin, [employer]. 4 11:54:14 Morbid obesity 657359235 Completed 201408/27/2015 Problem Code: 278.01; Problem Code Type: ICD-9; Laura servin, [employer]. 3 16:02:19 Morbid obesity 257211842 Completed 201406/09/2016 Problem Code: 278.01; Problem Code Type: ICD-9; Laura servin, [employer]. 3 16:02:19 Benign essentia l hyperten harsha 7397218 Active 2013 Problem Code: 401.1; Problem Code Type: ICD-9; Laura servin, [employer]. 3 16:02:19 Knee pain Completed 201407/24/2015 Problem Code: 719.46; Problem Code Type: ICD-9; Laura servin [employer]. 3 16:02:19 Shoulder joint pain 977081265 Completed 201408/07/2015 Problem Code: 719.41; Problem Code Type: ICD-9; Laura servin [employer] 3 16:02:19 Shoulder joint pain 316562727 Completed 201410/24/2015 Problem Code: 719.41; Problem Code Type: ICD-9; Laura servin [employer] 3 16:02:19 Problem Notes None recorded. Procedures Surgical History Date Name Laterality Status Provider Name and Address Organization Details Recorded Time 07/06/20 24 debridement of toe completed [facility] 08/26/2024 11:57:54 07/02/20 24 amputation of toe completed [facility] 08/26/2024 11:57:20 11/09/19 24 Most Recent Mammogram completed [employer]. 12/07/2023 10:08:57 09/25/20 14 Total knee arthroplasty completed aLura Walsh [employer]. 07/27/2023 16:02:20 Back Surgery completed [employer]. 07/26/2023 14:32:40 Joint Replacement completed [employer] 07/26/2023 14:32:41 Imaging Results None recorded. Procedure Notes None recorded. Medical Equipment None Reported. Allergies Allergen ID Allergen Name Allergen Category Reaction Reaction Severity Criticality Documentation Date Start Date Code Code System Note Provider Name and Address Organization Details Recorded Time 50583 Product containin g angiotens in-conver ting enzyme inhibitor (product) medicatio n cough moderate Not available 06/06/2022 07415 009 SNOMED Aller gyCod e: ''; Aller gyNam e: 'REILLY Inhib itors '; Aller gyCon ceptT ype: ''; Laura servin, [employer] 3 16:02:19 21604 metformin hydrochlo ride medicatio n Not available Not available Not available 06/06/2022 38828 3 RxNorm Aller gyCod e: ''; Aller gyNam e: 'Metf ormin HCl'; Aller gyCon ceptT ype: ''; Laura servin, [employer] 3 16:02:19 97482 Inapsine medicatio n Not available Not available Not available 06/06/2022 32879 3 RxNorm Aller gyCod e: '2025 11'; Aller gyNam e: 'Inap sine' ; Aller gyCon ceptT ype: 'RxNO RM'; Laura servin, [employer] 3 16:02:19 16806 Avelox medicatio n Not available Not available Not available 06/06/2022 49799 6 RxNorm Laura servin, [employer]. 3 16:02:19 83357 ibuprofen medicatio n Not available Not available Not available 06/06/2022 5640 RxNorm Laura servin, [employer] 3 16:02:19 83506 Rocephin medicatio n Not available Not available Not available 06/06/2022 9449 RxNorm Laura servin, [employer] 3 16:02:19 23158 ibuprofen medicatio n Not available Not available Not available 07/26/2023 5640 RxNorm Cami Schoolcraft null, [employer] 3 14:32:57 58901 Rocephin medicatio n Not available Not available Not available 07/26/2023 9449 RxNorm Cami Schoolcraft null, [employer] 3 14:33:26 81301 Avelox medicatio n Not available Not available Not available 07/26/2023 38491 6 RxNorm Cami servin, [employer] 14:33:36 86450 Inapsine medicatio n Not available Not available Not available 07/26/202350177 3 RxNorm Cami servin, [employer] 14:33:46 Medications Name Sig Start Date Stop Date Status Note LastModified by Organization Details LastModified Time spray kit 10ml USE 10 ML FOR MEDICATI ON ADMINIST RATION WITH SPRAY BOTTLE- DIRECTIO NS FOR USE (SK), #2 30ML SPRAY BOTTLES, #1 FUNNEL, SALINE 5ML VIALS #600ML 10/29 completed Not Available Not Available Not Available clindamyc in/mupiro beck/itrac onazole 150/20/50 mg topical capsule [72791] MIX THE CONTENTS OF 1 CAPSULE WITH [...] 80 mg tablet 1 tablet daily PRN 01/29 /2024 completed Not Available Not Available Not Available [...] completed Not Available Not Available Not Available [place] 10 mg-325 mg tablet Take 1 tablet(s [...] Updated DateTime 5 167.64 cm 41.6 kg/m2 116158. 83 g 86 /min 92 % 92 % 158/94 mm[Hg] 140/83 mm[Hg] Tran Correa [employer] 5 13:41:30 Social History Question Answer Notes LastModified by Organizat ion Details LastModified Time Tobacco Smoking Status Current Every Day Smoker Cami servin, [employer] 07/26/2023 14:32:40 Do You Have An [...] Do You Have A Medical Power Of Operating System Designer? No Information not available 07/26/2023 What Was [...] diabetes mellitus type 2 Relati ve: ''; [email or web address] Not available 07/27/2023 16:02:19 Unspecified Relation Family history of Hypertension Relati ve: ''; [email or web address] Not available 07/27/2023 16:02:19 Notes:*Procedure Description : [...] PF 3 completed Linn Montana APRN [address] [place], [address], [employer] 07/26/2023 18:00:13 pneumococcal polysaccharide PPV23 3 completed Linn Montana APRN [address] [place], [address], [employer] 07/26/2023 18:00:13 Pneumococcal conjugate PCV 13 5 completed Laura servin, [employer] 07/27/2023 16:02:20 pneumococcal polysaccharide PPV23 4 completed Laura servin, [employer] 07/27/2023 16:02:20 Influenza, high-dose, quadrivalent, PF 0 completed Darleen Bean null, [employer] 02/07/2024 15:36:04 MMR 7 completed Darleen Velascoy null, [employer] 02/07/2024 15:36:04 COVID-19, mRNA, LNP-S, PF, 30 mcg/0.3 mL dose 1 completed Darleen Velascoy null, [employer] 02/07/2024 15:36:04 COVID-19, mRNA, LNP-S, PF, 30 mcg/0.3 mL dose 1 completed Darleen Velascoy null, [employer] 02/07/2024 15:36:04 pneumococcal polysaccharide PPV23 9 completed Darleen Bean null, [employer] 02/07/2024 15:36:04 pneumococcal polysaccharide PPV23 6 completed Darleen Bean null, [employer] 02/07/2024 15:36:04 Influenza, split virus, trivalent, PF 9 completed Darleen servin, [facility] [employer] 02/07/2024 15:36:04 Influenza, split virus, trivalent, PF 7 completed Darleen servin, [place] [employer] 02/07/2024 15:36:04 Influenza, split virus, quadrivalent, PF 8 completed Darleen servin, [employer] 02/07/2024 15:36:04 Influenza, split virus, quadrivalent, PF 2 completed Darleen servin, [place] [employer] 02/07/2024 15:36:04 Influenza, split virus, quadrivalent, PF 1 completed Darleen servin, [place] [employer] 02/07/2024 15:36:04 Past Encounters Encounter ID Performer Location Encounter Start Date Encounter Closed Date Diagnosis/Indication Diagnosis SNOMED-CT Code Diagnosis ICD10 Code Diagnosis Note [id number] [place] [phone] 03/31/2025 13:01:26 03/31/2025 14:19:35 Uncontrolled type 2 diabetes mellitus 749118273 E11.65 Type 2 norma betes mellitus without complication 023742777 E11.9 Chronic constipation 236 110282 K59.09 Chronic ob structive pulmonary disease 23107938 J44.9 Essential hypertension 76519979 I10 Dysthymia 86591364 F34.1 Hyperlipidemia 19328610 E78.5 Diabetic p eripheral neuropathy 764856414 E11.40 Panic disorder 723429811 F41.0 Nausea 114627247 R11.0 Gastroesop hageal reflux disease without esophagitis 079857130 K21.9 Restless legs 96047363 G 25.81 Muscle pain 25134116 M79 .10 Primary insomnia 7465101 F51.01 Disorder of vitamin C 38 4660939 E54 Vitamin D deficiency 347 63073 E55.9 Body mass index 40+ - severely obese 452598618 Z68.41 Health Concerns Section Related Observation LastModified by Organization Detai ls LastModified Time None Recorded Concern Status LastModified by Organization Details LastModified Time None Recorded Payers Encounter Date Sequence Insurance Name Policy Number Policy Gonzales Covered Member ID Gonzales Member ID Guarantor Name 03/31/2025 2 [employer] [facility] (MEDICAID HMO) Seema Delacruz [id number] Seema Delacruz Notes Date Note Type Note Provider Name and Address Organization Details Recorded Time 03/31/2025 text/html pt here today fo r [...] her left foot. Linn Montana APRN [address] [facility], [place], [address], [facility] [employer] 03/31/2025 16:01:32 OBGyn Episode No OBEpisode recorded.
== END 2025-04-14 23:59 | disposition home or self-care (01) ==
LOC: LAB.DROPOF 04-15 10:18
PROVIDERS: PCP Podiatrist; Visit Provider Podiatrist
DX: E11.621 Type 2 diabetes mellitus with foot ulcer (principal); L97.515 Non-pressure chronic ulcer of other part of right foot with muscle involvement without evidence of necrosis
CPT/HCPCS: 87070; 87205

== ENCOUNTER 2025-05-05 12:32 | Day surgery (SDC) | payer MEDICARE, OTHER, SELFPAY ==
[2025-05-05 12:45] VITALS: BP 147/64; PULSE 65; RESP 18; O2SAT 92; BMI 39.5
--- NOTE | 2025-05-05 13:03 | EXP.PM.HP ---
History of Present Illness *Admission Date: 05/05/25 *Reason for visit:: Intrathecal refill; DDD *History of present illness: Same [facility] Disclaimer: The information contained in this section may have been updated after the patient was seen, as this information can be updated by other users. Medical History Numbness and tingling Pre-ulcerative calluses Ingrown toenail of left foot Intractable neuropathic pain of right lower extremity Skin change Decreased pedal pulses Diabetic foot ulcer Pain in both feet Viral upper respiratory tract infection Leg pain Anxiety about health Moderate depressive disorder Cellulitis Patient left without being seen Chronic pain disorder Lumbar radiculopathy, acute Neuropathic pain Hyperglycemia Hypothyroidism Other forms of angina pectoris Other specified depressive episodes Neuralgia and neuritis Hypertension with goal to be determined Anxiety with somatization Vitamin D deficiency Microalbuminuria Keratosis Callus of foot Onychodystrophy Onychoincurvatum Bronchitis Angina at rest Right flank pain Chest pain Presence of intrathecal pump Excess skin of arm bilateral removal Encounter for wound care 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 Type 2 diabetes mellitus Diabetic foot Surgical History Total knee replacement status bilateral Family History Other Family history of COPD (chronic obstructive pulmonary disease) Family history of cancer Family history of diabetes mellitus type II Family history of hypertension Family history of myocardial infarction Social History Smoking Status: Current some day smoker tobacco type: cigarettes packs per day: 1 pack-years: 35 second hand exposure: Yes alcohol intake: never substance use type: denies use current occupational status: other Travel in the last 8 weeks?: None household members: friend(s) housing: house lives independently: Yes marital status: single education level: high school 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 caffeine: Yes special heather needs: No agree to transfusion: No do you feel safe at home: Yes victim of physical abuse: No victim of emotional abuse: No victim of sexual abuse: No would you like helpful sources: No Have you lived/traveled outside [place] in past 30 days?: No Contact w/someone who lives/traveled outside [place] past 30 days?: No Exposure to someone with infectious disease in past 14 days?: No Do you have a fever (greater than 100.4 F or 38 C)?: No Have you tested positive for COVID-19?: No Exposed to someone with COVID-19 in past 14 days?: No Do you have a sore throat?: No Do you have a cough?: No Do you have any weakness?: No Do you have any diarrhea?: No Are you experiencing any unusual bleeding?: No Do you have any muscle aches/pain?: No Do you have any abdominal pain?: No Are you experiencing loss of taste or smell?: No Other Medical History Have you received the Flu Vaccine for this season: No Have you received the Pneumonia Vaccine: No Review of Systems Review of Systems Review of systems:: pertinent systems reviewed and negative unless documented below Review of systems (narrative): Review of Systems: General: No recent weight changes, no fever, no sleep disturbances Respiratory: No cough, no shortness of air, no recurring pulmonary infections Cardiovascular/peripheral vascular: No chest pain, no palpitations, no edema, no shortness of breath Gastrointestinal: No new onset incontinence, normal bowel movements reported Genitourinary: No new onset incontinence Musculoskeletal: Chronic back pain Psychiatric: [Normal mood/affect] Neurological: [Denies weakness in extremities], [denies balance issues] Meds Home Medications and Allergies Home Medications ?Medication ?Instructions ?Recorded ?Confirmed ?Type flash glucose sensor 05/04/22 05/04/25 History flash glucose scanning reader 08/14/22 05/04/25 History ([employer] Joelle 14 Day [place]) carvedilol 25 mg tablet 25 mg PO BID High blood pressure 02/15/23 05/04/25 Rx 90 days #180 tabs fenofibrate 54 mg tablet 54 mg PO DAILY Cholesterol #90 tabs 02/15/23 05/04/25 Rx insulin glargine 100 unit/mL (3 10 unit (0.1 mL) SQ HS Diabetes 02/15/23 05/04/25 Rx mL) subcutaneous pen #15 mL lisinopril 2.5 mg tablet 2.5 mg PO DAILY Hypertension #90 02/15/23 05/04/25 Rx tabs methocarbamol 1,000 mg tablet 1,000 mg PO TID muscle spasms #90 04/16/23 05/04/25 Rx tabs flash glucose sensor (FreeStyle #1 ea 06/15/23 05/04/25 Rx Joelle 14 Day Sensor kit) furosemide 40 mg tablet 40 mg PO BID 07/02/24 05/04/25 History hydroxyzine pamoate 25 mg capsule 25 mg PO TID PRN Panic Disorder 07/02/24 05/04/25 History (Vistaril) isosorbide dinitrate 30 mg tablet 30 mg PO BID 07/02/24 05/04/25 History methimazole 5 mg tablet 2.5 mg PO DAILY 07/02/24 05/04/25 History pantoprazole 40 mg tablet,delayed 40 mg PO DAILY 07/02/24 05/04/25 History release ropinirole 3 mg tablet 3 mg PO HS 07/02/24 05/04/25 History tizanidine 4 mg tablet (Zanaflex) 4 mg PO BID PRN Myalgia 07/02/24 05/04/25 History trazodone 150 mg tablet 150 mg PO HS 07/02/24 05/04/25 History citalopram 40 mg tablet (Celexa) 40 mg PO DAILY 09/11/24 05/04/25 History duloxetine 60 mg capsule,delayed 60 mg PO DAILY MOOD 09/11/24 05/04/25 History release (Cymbalta) silver sulfadiazine 1 % topical 1 applic topical DAILY 30 days #50 10/28/24 05/04/25 Rx cream (Silvadene) grams gabapentin 600 mg tablet 600 mg PO TID 02/05/25 05/04/25 History lidocaine 5 % topical ointment 1 applic topical BID PRN pain 30 04/06/25 05/04/25 Rx days #50 grams tirzepatide 2.5 mg/0.5 mL 2.5 mg SQ WEEKLY 04/06/25 05/04/25 History subcutaneous pen injector (Mounjaro) tramadol 50 mg tablet 50 mg PO BID PRN pain #60 tabs 04/10/25 05/04/25 Rx New Prescriptions to Start Prescriptions: Allergies Allergy/AdvReac Type Severity Reaction Status Date / Time ceftriaxone (From ROCEPHIN) Allergy Unknown Rash Verified 05/04/25 14:34 droperidol (From INAPSINE) Allergy Unknown Hives Verified 05/04/25 14:34 ibuprofen (IBUPROFEN) Allergy Unknown Hives Verified 05/04/25 14:34 moxifloxacin (From AVELOX) Allergy Unknown Rash Verified 05/04/25 14:34 Exam Constitutional Constitutional: no acute distress *Routine HEENT Exam Head: Present normocephalic and atraumatic Eye: Present PERRL ENT: Present mucous membranes moist *Routine Neck Exam Neck: Present supple *Routine Respiratory Exam Respiratory: Present CTA bilaterally *Routine Cardiovascular Exam Cardiovascular: Present RRR *Routine Abdominal Exam Abdominal: Present soft *Routine Rectal Exam Rectal:: deferred *Routine Genitalia Exam Genitalia:: deferred Routine Back/Spine/Pelvis Exam Back/Spine: Present pain with flexion *Routine Skin Exam Skin: Present intact, dry and warm *Routine Neurological Exam Neurological: Present alert and oriented X3 Routine Psychiatric Exam Psychiatric: Present normal affect and normal thought process Assessment and Plan *Assessment and plan (1) Chronic osteomyelitis of right foot: Status: Acute Category: Medical Code(s): M86.671 - Other chronic osteomyelitis, right ankle and foot (2) Degenerative joint disease (DJD) of lumbar spine: Status: Chronic Qualifiers: Spinal osteoarthritis complication: with radiculopathy Qualified Code(s): M47.26 - Other spondylosis with radiculopathy, lumbar region Category: Medical Code(s): M47.816 - Spondylosis without myelopathy or radiculopathy, lumbar region (3) Lumbar radiculopathy: Status: Chronic Category: Medical Code(s): M54.16 - Radiculopathy, lumbar region Plan Patient has been instructed to contact the clinic with any concerns before the next appointment. Dr. Goddard has reviewed this note and agrees with this plan of care. This note was dictated using voice recognition software and make contain errors or omissions. All injections are used with Lidocaine, Bupivacaine and dexamethasone. Occasionally urine drug screen is needed to verify patient's compliance with our office pain contract. This is ordered based off specific treatments related to chronic pain with the potential to abuse certain medications.
--- NOTE | 2025-05-05 13:04 | P.PCN_ITS ---
Procedure Date: 05/05/25 Time: 13:09 Anesthesiologist:: Renae Rey APRN Complications:: None Pre-procedure Diagnosis:: Degenerative disc disease of lumbar spine with lumbar radiculopathy symptoms, chronic pain syndrome Post-procedure Diagnosis:: Same Indications for Procedure:: Patient is a pleasant 55-year-old female who presents today for intrathecal refill and reprogram. Today she rates her pain as 7 out of 10. She denies any new trauma or injury. Patient does state that she has started the hyperbaric oxygen treatments for her foot. She states that she has not been to an visits to notice significant improvement as of right now. She denies any negative issues. Patient does state that the wound is still desire but has not gotten any worse. Patient is currently managed with Dilaudid 20 mg/mL with a daily dose of 9 mg/day and bupivacaine 10 mg/mL with a daily dose of 4.5 mg/day. Patient is also prescribed tramadol twice a day for her chronic foot pain with the nonhealing wound. Patient is asking if we can possibly increase the dosage of that medication. Her Sukhjinder has been reviewed and is appropriate. Physical Exam: General: Alert and oriented x3, no acute distress, pleasant and cooperative Lungs: Respirations even and unlabored, symmetrical chest expansion Eyes: PERRL Musculoskeletal: Flexion and extension of lumbar [spine] somewhat guarded secondary to pain, [antalgic gait noted] Neurological: Speech clear, no gross sensory deficit Procedure Details:: Informed consent was obtained and the risk and benefits of the procedure were explained to the patient. The patient had noninvasive monitoring placed including noninvasive blood pressure cuff and pulse oximeter. Patient's pump was interrogated. The area over the pump was cleansed with chlorhexidine as a cleansing solution. In sterile fashion the pump was accessed with a 22-gauge needle. Approximately [7.6 mls of the pump solution was removed and discarded appropriately. The pump was then refilled with 20 mL's of Dilaudid 20 mg/mL and bupivacaine 10 mg/mL. The needle was withdrawn and a bandage was placed over the puncture site. The infusion rate was reprogrammed and continued at its current dosage. The patient tolerated well with no complication. Plan and Disposition:: Patient tolerated the procedure well with no complications and was discharged neurologically intact. Patient will return to clinic on or before their next intrathecal refill date. We will see the patient back in the clinic at the next intrathecal refill. Patient has been instructed to contact the clinic with any concerns before the next appointment. Dr. Goddard has reviewed this note and agrees with this plan of care. This note was dictated using voice recognition software and make contain errors or omissions. -- It Is medically necessary for this patient to continue to have their intrathecal pump refilled at regular intervals. This patient had an intrathecal pain pump implanted after meeting criteria of chronic intractable pain for greater than 3 months and failing conservative treatments. Patient has committed and been compliant to the treatment plan and all planned follow up care. Since implan tation of the intrathecal pain pump, the patient has had decreased pain and been more functional. Oral medications have been reduced including intake of oral opioids. Patient continues to do well with intrathecal therapy with decrease in pain symptoms and increase in functional status. Stopping intrathecal medications can lead to life threatening withdrawal, seizures, cardiac arrest, severe pain, and possible . Pumps that are not refilled at regular intervals can be damages and cause and need for replacement. We continually titrate dose and concentration to optimize pain relief and function. We are limited in concentration for certain drugs to safely deliver medications through the pump and stay within the recommendations from the Polyanalgesic Consensus Committee Guidelines. Depending on dose and concentration these pumps may need to be refilled sooner than 3 months as we titrate. A UDS is needed to verify patient's compliance with our office pain contract. This is ordered based off specific treatments related to chronic pain with the potential to abuse certain medications.
[2025-05-05 13:05] VITALS: BP 170/80; PULSE 67; RESP 18; O2SAT 95
[2025-05-05 13:17] VITALS: BP 161/79; PULSE 67; RESP 18; O2SAT 97
== END 2025-05-05 13:20 | disposition home or self-care (01) ==
PROVIDERS: PCP Nurse Practitioner; Visit Provider Nurse Practitioner Family
DX: Z45.1 Encounter for adjustment and management of infusion pump (principal); M51.16 Intervertebral disc disorders with radiculopathy, lumbar region; G89.4 Chronic pain syndrome; F41.9 Anxiety disorder, unspecified; E11.610 Type 2 diabetes mellitus with diabetic neuropathic arthropathy; I10 Essential (primary) hypertension; E03.9 Hypothyroidism, unspecified; F32.9 Major depressive disorder, single episode, unspecified; Z88.6 Allergy status to analgesic agent; Z88.1 Allergy status to other antibiotic agents; Z88.8 Allergy status to other drugs, medicaments and biological substances; Z79.4 Long term (current) use of insulin; Z79.899 Other long term (current) drug therapy
CPT/HCPCS: 62370

== ENCOUNTER 2025-05-22 14:18 | Day surgery (SDC) | payer MEDICARE, OTHER, SELFPAY ==
--- NOTE | 2025-05-22 14:39 | EXP.PM.HP ---
History of Present Illness *Admission Date: 05/22/25 *Reason for visit:: Intrathecal refills DDD *History of present illness: Same [facility] Disclaimer: The information contained in this section may have been updated after the patient was seen, as this information can be updated by other users. Medical History Numbness and tingling Pre-ulcerative calluses Ingrown toenail of left foot Intractable neuropathic pain of right lower extremity Skin change Decreased pedal pulses Diabetic foot ulcer Pain in both feet Viral upper respiratory tract infection Leg pain Anxiety about health Moderate depressive disorder Cellulitis Patient left without being seen Chronic pain disorder Lumbar radiculopathy, acute Neuropathic pain Hyperglycemia Hypothyroidism Other forms of angina pectoris Other specified depressive episodes Neuralgia and neuritis Hypertension with goal to be determined Anxiety with somatization Vitamin D deficiency Microalbuminuria Keratosis Callus of foot Onychodystrophy Onychoincurvatum Bronchitis Angina at rest Right flank pain Chest pain Presence of intrathecal pump Excess skin of arm bilateral removal Encounter for wound care 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 Type 2 diabetes mellitus Diabetic foot Surgical History Total knee replacement status bilateral Family History Other Family history of COPD (chronic obstructive pulmonary disease) Family history of cancer Family history of diabetes mellitus type II Family history of hypertension Family history of myocardial infarction Social History Smoking Status: Current some day smoker tobacco type: cigarettes packs per day: 1 pack-years: 35 second hand exposure: Yes alcohol intake: never substance use type: denies use current occupational status: other Travel in the last 8 weeks?: None household members: friend(s) housing: house lives independently: Yes marital status: single education level: high school 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 caffeine: Yes special heather needs: No agree to transfusion: No do you feel safe at home: Yes victim of physical abuse: No victim of emotional abuse: No victim of sexual abuse: No would you like helpful sources: No Have you lived/traveled outside US in past 30 days?: No Contact w/someone who lives/traveled outside US past 30 days?: No Exposure to someone with infectious disease in past 14 days?: No Do you have a fever (greater than 100.4 F or 38 C)?: No Have you tested positive for COVID-19?: No Exposed to someone with COVID-19 in past 14 days?: No Do you have a sore throat?: No Do you have a cough?: No Do you have any weakness?: No Do you have any diarrhea?: No Are you experiencing any unusual bleeding?: No Do you have any muscle aches/pain?: No Do you have any abdominal pain?: No Are you experiencing loss of taste or smell?: No Other Medical History Have you received the Flu Vaccine for this season: No Have you received the Pneumonia Vaccine: No Meds Home Medications and Allergies Home Medications ?Medication ?Instructions ?Recorded ?Confirmed ?Type flash glucose sensor 05/04/22 05/18/25 History flash glucose scanning reader 08/14/22 05/18/25 History (FreeStyle Joelle 14 Day [place]) carvedilol 25 mg tablet 25 mg PO BID High blood pressure 02/15/23 05/18/25 Rx 90 days #180 tabs fenofibrate 54 mg tablet 54 mg PO DAILY Cholesterol #90 tabs 02/15/23 05/18/25 Rx insulin glargine 100 unit/mL (3 10 unit (0.1 mL) SQ HS Diabetes 02/15/23 05/18/25 Rx mL) subcutaneous pen #15 mL lisinopril 2.5 mg tablet 2.5 mg PO DAILY Hypertension #90 02/15/23 05/18/25 Rx tabs methocarbamol 1,000 mg tablet 1,000 mg PO TID muscle spasms #90 04/16/23 05/18/25 Rx tabs flash glucose sensor (FreeStyle #1 ea 06/15/23 05/18/25 Rx Joelle 14 Day Sensor kit) furosemide 40 mg tablet 40 mg PO BID 07/02/24 05/18/25 History hydroxyzine pamoate 25 mg capsule 25 mg PO TID PRN Panic Disorder 07/02/24 05/18/25 History (Vistaril) isosorbide dinitrate 30 mg tablet 30 mg PO BID 07/02/24 05/18/25 History methimazole 5 mg tablet 2.5 mg PO DAILY 07/02/24 05/18/25 History pantoprazole 40 mg tablet,delayed 40 mg PO DAILY 07/02/24 05/18/25 History release ropinirole 3 mg tablet 3 mg PO HS 07/02/24 05/18/25 History tizanidine 4 mg tablet (Zanaflex) 4 mg PO BID PRN Myalgia 07/02/24 05/18/25 History trazodone 150 mg tablet 150 mg PO HS 07/02/24 05/18/25 History citalopram 40 mg tablet (Celexa) 40 mg PO DAILY 09/11/24 05/18/25 History duloxetine 60 mg capsule,delayed 60 mg PO DAILY MOOD 09/11/24 05/18/25 History release (Cymbalta) silver sulfadiazine 1 % topical 1 applic topical DAILY 30 days #50 10/28/24 05/18/25 Rx cream (Silvadene) grams gabapentin 600 mg tablet 600 mg PO TID 02/05/25 05/18/25 History lidocaine 5 % topical ointment 1 applic topical BID PRN pain 30 04/06/25 05/18/25 Rx days #50 grams tramadol 50 mg tablet 50 mg PO TID PRN pain #90 tabs 05/05/25 05/18/25 Rx azithromycin 250 mg tablet mg PO DAILY 05/11/25 05/18/25 History gentamicin 0.3 % eye drops drp Ear-Right 05/11/25 05/18/25 History prednisolone acetate 1 % eye drp Eye-Right ONCE 05/11/25 05/18/25 History drops,suspension tirzepatide 5 mg/0.5 mL mg SQ 05/11/25 05/18/25 History subcutaneous pen injector (Mounjaro) New Prescriptions to Start Prescriptions: Allergies Allergy/AdvReac Type Severity Reaction Status Date / Time ceftriaxone (From ROCEPHIN) Allergy Unknown Rash Verified 05/04/25 14:34 droperidol (From INAPSINE) Allergy Unknown Hives Verified 05/04/25 14:34 ibuprofen (IBUPROFEN) Allergy Unknown Hives Verified 05/04/25 14:34 moxifloxacin (From AVELOX) Allergy Unknown Rash Verified 05/04/25 14:34 Exam *Routine HEENT Exam Head: Present normocephalic and atraumatic Eye: Present PERRL ENT: Present mucous membranes moist *Routine Neck Exam Neck: Present supple *Routine Respiratory Exam Respiratory: Present CTA bilaterally *Routine Cardiovascular Exam Cardiovascular: Present RRR *Routine Abdominal Exam Abdominal: Present soft *Routine Rectal Exam Rectal:: deferred *Routine Genitalia Exam Genitalia:: deferred Routine Back/Spine/Pelvis Exam Back/Spine: Present pain with flexion *Routine Skin Exam Skin: Present intact and warm *Routine Neurological Exam Neurological: Present alert and oriented X3
--- NOTE | 2025-05-22 14:40 | EXP.PAIN.PRO ---
Procedure Date: 05/22/25 Time: 15:04 Anesthesiologist:: Renae Rey APRN Complications:: None Pre-procedure Diagnosis:: Degenerative disc disease of lumbar spine with lumbar radiculopathy symptoms, chronic pain syndrome Post-procedure Diagnosis:: Same Indications for Procedure:: Patient is a pleasant 55-year-old female who presents today for intrathecal refill and reprogram. She rates her pain today at a 6 out of 10. She denies any new falls or injuries. She does state that she is seeing improvement with her wound on her right foot. She does feel like the oxygen therapy is really starting to make a difference. Patient is currently managed with Dilaudid 20 mg per mL with a daily dose of 9 mg/day and bupivacaine 10 mg/mL with a daily dose of 4.5 mg/day. She denies any side effects. She is also prescribed tramadol 50 mg 3 times a day from our office for her chronic foot pain. She denies any side effects but is requesting refills on this. Her Sukhjinder has been reviewed and is appropriate. Physical Exam: General: Alert and oriented x3, no acute distress, pleasant and cooperative Lungs: Respirations even and unlabored, symmetrical chest expansion Eyes: PERRL Musculoskeletal: Flexion and extension of lumbar [spine] somewhat guarded secondary to pain, [antalgic gait noted] Neurological: Speech clear, no gross sensory deficit Procedure Details:: Informed consent was obtained and the risk and benefits of the procedure were explained to the patient. The patient had noninvasive monitoring placed including noninvasive blood pressure cuff and pulse oximeter. Patient's pump was interrogated. The area over the pump was cleansed with chlorhexidine as a cleansing solution. In sterile fashion the pump was accessed with a 22-gauge needle. Approximately 11.5 mls of the pump solution was removed and discarded appropriately. The pump was then refilled with 20 mL's of Dilaudid 20 mg/mL and bupivacaine 10 mg/mL. The needle was withdrawn and a bandage was placed over the puncture site. The infusion rate was reprogrammed and continued at its current dosage. The patient tolerated well with no complication. Plan and Disposition:: Patient tolerated the procedure well with no complications and was discharged neurologically intact. I did refill the patient's tramadol and provide a 3-month supply of this medication. Patient will return to clinic on or before their next intrathecal refill date. We will see the patient back in the clinic at the next intrathecal refill. Patient has been instructed to contact the clinic with any concerns before the next appointment. Dr. Goddard has reviewed this note and agrees with this plan of care. This note was dictated using voice recognition software and make contain errors or omissions. -- It Is medically necessary for this patient to continue to have their intrathecal pump refilled at regular intervals. This patient had an intrathecal pain pump implanted after meeting criteria of chronic intractable pain for greater than 3 months and failing conservative treatments. Patient has committed and been compliant to the treatment plan and all planned follow up care. Since implantation of the intrathecal pain pump, the patient has had decreased pain and been more functional. Oral medications have been reduced including intake of oral opioids. Patient continues to do well with intrathecal therapy with decrease in pain symptoms and increase in functional status. Stopping intrathecal medications can lead to life threatening withdrawal, seizures, cardiac arrest, severe pain, and possible . Pumps that are not refilled at regular intervals can be damages and cause and need for replacement. We continually titrate dose and concentration to optimize pain relief and function. We are limited in concentration for certain drugs to safely deliver medications through the pump and stay within the recommendations from the Polyanalgesic Consensus Committee Guidelines. Depending on dose and concentration these pumps may need to be refilled sooner than 3 months as we titrate. A UDS is needed to verify patient's compliance with our office pain contract. This is ordered based off specific treatments related to chronic pain with the potential to abuse certain medications.
[2025-05-22 14:49] VITALS: BP 152/75; PULSE 75; RESP 18; O2SAT 100; BMI 44.2
[2025-05-22 14:56] VITALS: BP 151/79; PULSE 70; RESP 18; O2SAT 92
[2025-05-22 15:10] VITALS: BP 101/49; PULSE 71; RESP 18; O2SAT 93
== END 2025-05-22 15:10 | disposition home or self-care (01) ==
PROVIDERS: PCP Nurse Practitioner; Visit Provider Nurse Practitioner Family
DX: M51.16 Intervertebral disc disorders with radiculopathy, lumbar region (principal); Z45.1 Encounter for adjustment and management of infusion pump; G89.4 Chronic pain syndrome; F32.1 Major depressive disorder, single episode, moderate; I10 Essential (primary) hypertension; E11.9 Type 2 diabetes mellitus without complications; F41.9 Anxiety disorder, unspecified; F17.210 Nicotine dependence, cigarettes, uncomplicated; Z88.1 Allergy status to other antibiotic agents; Z88.8 Allergy status to other drugs, medicaments and biological substances; Z88.6 Allergy status to analgesic agent; Z79.4 Long term (current) use of insulin; Z79.899 Other long term (current) drug therapy
CPT/HCPCS: 62370

== ENCOUNTER 2025-05-28 16:49 | Emergency (ER) | payer MEDICARE, OTHER, SELFPAY ==
--- OUTSIDE RECORDS SUMMARY | 2025-05-04 20:00 | XMS_ITS | Clinical Summary ---
Author Organization Unknown Care Team Providers Care Sheather Name Role Phone LEONID DPM, ORA Unavailable Unavailable STEPHY RN, ALINE Unavailable Unavailable JULIA ARZATEN, ASHELY Unavailable Unavaillisa BATEMAN OT, MITZI Unavailable Unavailable EWA RN, JOHN Unavailable Unavailable CARINA TUCKER/TEMO, JAYLAN Unavailable Un available Payers Payer Name Policy Type Policy Number Effective Date Expira tion Date SAVANNA.MA.O.C.AUTH [id number] ADMISSIONS.CODEREQUEST.MYNEX US.AUTH [id number] CARELON.ANGELICA.MA.C.AUTH [id number] Problems Condition Name Condition Details Condition Category Status Onset Date Resolution Date Last Treatment Date Treating Clinician Comments TYPE 2 DIABETES MELLITUS WITH FOOT ULCER Active 04-21 00:00: 00 NON-PRS CHRONIC ULCER OTH PRT RIGHT FOOT W FAT LAYER EXPOSED Active 04-21 00:00: 00 LYMPHEDEMA, NOT ELSEWHERE CLASSIFIED Active 10-01 00:00: 00 ESSENTIAL (PRIMARY) HYPERTENSION Active 10-01 00:00: 00 PURE HYPERCHOLEST EROLEMIA, UNSPECIFIED Active 10-01 00:00: 00 CHRONIC OBSTRUCTIVE PULMONARY DISEASE, UNSPECIFIED Active 10-01 00:00: 00 SLEEP APNEA, UNSPECIFIED Active 10-01 00:00: 00 DEPRESSION, UNSPECIFIED Active 10-01 00:00: 00 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 Active 10-01 00:00: [...] 40 mg tablet 2023-10 00:00: 00 Yes [id number] DEPRESSION 1 tablet DAILY 1 tablet DAILY (route: oral) Med Classific ation: Central Nervous System Agents Coreg 25 mg tablet 2023-10 00:00: 00 Yes [id number] CARDIAC 1 tablet 2 TIMES DAILY 1 tablet 2 TIMES DAILY (route: oral) Med Classific ation: Cardiovas cular Therapy Agents duloxetine 30 mg capsule,del ayed release 2023-10 00:00: 00 Yes [id number] DEPRESSION 1 capsule DAILY 1 capsule DAILY (route: oral) Med Classific ation: Central Nervous System Agents fenofibrate 54 mg tablet 2023-10 00:00: 00 Yes [id number] CARDIAC 1 tablet DAILY 1 tablet DAILY (route: oral) Med Classific ation: Cardiovas cular Therapy Agents furosemide 40 mg tablet 2023-10 00:00: 00 Yes [id number] CARDIAC 1 tablet DAILY 1 tablet DAILY (route: oral) Med Classific ation: Cardiovas cular Therapy Agents gabapentin 800 mg tablet 2023-10 00:00: 00 Yes [id number] PAIN 1 tablet 3 TIMES DAILY 1 tablet 3 TIMES DAILY (route: oral) Med Classific ation: Central Nervous System Agents hydroxyzine HCl 25 mg tablet 2023-10 00:00: 00 Yes [id number] ANXIETY 1 tablet 3 TIMES DAILY 1 tablet 3 TIMES DAILY (route: oral) Med Classific ation: Central Nervous System Agents insulin glargine (U-300) conc. 300 unit/mL (3 mL) subcutaneou s pen 2023-10 00:00: 00 Yes [id number] DM 10 unit BEDTIME 10 unit BEDTIME (route: subcutaneo us) Med Classific ation: Endocrine isosorbide dinitrate 30 mg tablet 2023-10 00:00: 00 Yes [id number] CARDIAC 1 tablet 2 TIMES DAILY 1 tablet 2 TIMES DAILY (route: oral) Med Classific ation: Cardiovas cular Therapy Agents lisinopril 2.5 mg tablet 2023-10 00:00: 00 Yes [id number] HTN 1 tablet DAILY 1 tablet DAILY (route: oral) Med Classific ation: Cardiovas cular Therapy Agents methimazole 5 mg tablet 2023-10 00:00: 00 Yes [id number] THYROID 1 tablet DAILY 1 tablet DAILY (route: oral) Med Classific ation: Endocrine Protonix 40 mg tablet,jerel yed release 2023-10 00:00: 00 Yes [id number] GERD 1 tablet DAILY 1 tablet DAILY (route: oral) Med Classific ation: Gastroint estinal Therapy Agents ropinirole 3 mg tablet 2023-10 00:00: 00 Yes [id number] RLS 1 tablet BEDTIME 1 tablet BEDTIME (route: oral) Med Classific ation: Central Nervous System Agents tizanidine 4 mg tablet 2023-10 00:00: 00 Yes [id number] MUSCLE RELAXER 1 tablet 2 TIMES DAILY 1 tablet 2 TIMES DAILY (route: oral) Med Classific ation: Locomotor System trazodone 150 mg tablet 2023-10 00:00: 00 Yes [id number] SLEEP 1 tablet BEDTIME 1 tablet BEDTIME (route: oral) Med Classific ation: Central Nervous System Agents Linzess 72 mcg capsule 04-23 00:00: 00 Yes [id number] GI 1 capsule DAILY 1 capsule DAILY (route: oral) Med Classific ation: Gastroint estinal Therapy Agents Mounjaro 2.5 mg/0.5 mL subcutaneou s pen injector 04-23 00:00: 00 Yes [id number] A2DM 0.5 mL WEEKLY 0.5 mL WEEKLY (route: subcutaneo us) Med Classific ation: Endocrine Vital Signs Vital Name Observation Time Observation Value Commen ts Temperature 2025-05-05 10:19:00.000 97.9 [degF] Temperature 2025-04-24 10:58:00.000 97.8 [degF] Pulse 2025-05-05 10:19:00.000 65 /min Pulse 2025-04-24 10:58:00.000 73 /min O2 Saturation (%) 2025-05-05 10:19:00.000 95 % O2 Saturation (%) 2025-04-24 10:58:00.000 98 % Respirations 2025-05-05 10:19:00.000 18 /min Respirations 2025-04-24 10:58:00.000 18 /min Systolic Blood Pressure 2025-05-05 10:19:00.000 122 mm [Hg] Systolic Blood Pressure 2025-04-24 10:58:00.000 128 mm [Hg] Diastolic Blood Pressure 2025-05-05 10:19:00.000 62 mm [Hg] Diastolic Blood Pressure 2025-04-24 10:58:00.000 72 mm [Hg] Plan of Treatment Planned Activity Planned Date Details Comments Future Scheduled Test RN TO OBSE RVE, ASSESS, EVALUATE, AND DEVELOP AN INDIVIDUALIZED PLAN OF CARE. AGENCY MAY ACCEPT ORDERS FROM CONSULTING PHYSICIANS LINA QUEZADA RN TO OBSERVE AND ASSESS, CANAL BOAT CAPTAIN/LOFT WORKER PILE DRIVING TO OBSERVE FOR RISK FOR FALLS AND INSTRUCT IN FALL PREVENTION, HOME SAFETY, MEDICATION MANAGEMENT, INFECTION PREVENTION, AND NUTRITION MANAGEMENT. RN/CANAL BOAT CAPTAIN/LOFT WORKER PILE DRIVING NURSE MAY PERFORM O2 SATURATION LEVEL ON ADMISSION AND PRN FOR DYSPNEA FOR RN TO ASSESS/CANAL BOAT CAPTAIN TO OBSERVE PATIENT, WITH NOTIFICATION TO THE PHYSICIAN IF SATURATION IS 90% IN THE ABSENCE OF MORE SPECIFIC PARAMETERS FROM THE PHYSICIAN. AGENCY MAY PERFORM A RESUMPTION OF CARE VISIT FOLLOWING ANY HOSPITAL ADMISSION. RN/CANAL BOAT CAPTAIN/LOFT WORKER PILE DRIVING TO MONITOR CO-MORBID CONDITIONS LISTED ON THE PLAN OF CARE AND ANY NEW CONDITIONS THAT PRESENT THEMSELVES DURING THIS EPISODE TO IDENTIFY CHANGES AND INTERVENE TO MINIMIZE COMPLICATIONS. [code = RN TO OBSERVE, ASSESS, EVALUATE, AND DEVELOP AN INDIVIDUALIZED PLAN OF CARE. AGENCY MAY ACCEPT ORDERS FROM CONSULTING PHYSICIANS LINA QUEZADA RN TO OBSERVE AND ASSESS, CANAL BOAT CAPTAIN/LOFT WORKER PILE DRIVING TO OBSERVE FOR RISK FOR FALLS AND INSTRUCT IN FALL PREVENTION, HOME SAFETY, MEDICATION MANAGEMENT, INFECTION PREVENTION, AND NUTRITION MANAGEMENT. RN/CANAL BOAT CAPTAIN/LOFT WORKER PILE DRIVING NURSE MAY PERFORM O2 SATURATION LEVEL ON ADMISSION AND PRN FOR DYSPNEA FOR RN TO ASSESS/CANAL BOAT CAPTAIN TO OBSERVE PATIENT, WITH NOTIFICATION TO THE PHYSICIAN IF SATURATION IS 90% IN THE ABSENCE OF MORE SPECIFIC PARAMETERS FROM THE PHYSICIAN. AGENCY MAY PERFORM A RESUMPTION OF CARE VISIT FOLLOWING ANY HOSPITAL ADMISSION. RN/CANAL BOAT CAPTAIN/LOFT WORKER PILE DRIVING TO MONITOR CO-MORBID CONDITIONS LISTED ON THE PLAN OF CARE AND ANY NEW CONDITIONS THAT PRESENT THEMSELVES DURING THIS EPISODE TO IDENTIFY CHANGES AND INTERVENE TO MINIMIZE COMPLICATIONS.] Future Scheduled Test CARDIOVASC ULAR SYSTEM; RN TO ASSESS/TEACH, CANAL BOAT CAPTAIN/LOFT WORKER PILE DRIVING TO OBSERVE/TEACH RELATED TO ALTERED CARDIOVASCULAR STATUS TO MINIMIZE COMPLICATIONS AND REDUCE HOSPITALIZATION. [code = CARDIOVASCULAR SYSTEM; RN TO ASSESS/TEACH, CANAL BOAT CAPTAIN/LOFT WORKER PILE DRIVING TO OBSERVE/TEACH RELATED TO ALTERED CARDIOVASCULAR STATUS TO MINIMIZE COMPLICATIONS AND REDUCE HOSPITALIZATION.] Future Scheduled Test HYPERTENSI ON MANAGEMENT; RN TO ASSESS AND TEACH, CANAL BOAT CAPTAIN/LOFT WORKER PILE DRIVING TO OBSERVE AND TEACH WARNING SIGNS AND SYMPTOMS TO AVOID HOSPITALIZATION. [code = HYPERTENSION MANAGEMENT; RN TO ASSESS AND TEACH, CANAL BOAT CAPTAIN/LOFT WORKER PILE DRIVING TO OBSERVE AND TEACH WARNING SIGNS AND SYMPTOMS TO AVOID HOSPITALIZATION.] Future Scheduled Test RESPIRATOR Y SYSTEM MANAGEMENT; RN TO ASSESS AND TEACH, CANAL BOAT CAPTAIN/LOFT WORKER PILE DRIVING TO OBSERVE AND TEACH RELATED TO ALTERED RESPIRATORY STATUS TO MINIMIZE COMPLICATIONS AND REDUCE HOSPITALIZATION. [code = RESPIRATORY SYSTEM MANAGEMENT; RN TO ASSESS AND TEACH, CANAL BOAT CAPTAIN/LOFT WORKER PILE DRIVING TO OBSERVE AND TEACH RELATED TO ALTERED RESPIRATORY STATUS TO MINIMIZE COMPLICATIONS AND REDUCE HOSPITALIZATION.] Future Scheduled Test COPD MANAG EMENT; RN TO ASSESS AND TEACH, CANAL BOAT CAPTAIN/LOFT WORKER PILE DRIVING TO OBSERVE AND TEACH SIGNS/SYMPTOMS OF COPD EXACERBATION AND PROVIDE EARLY INTERVENTIONS TO MINIMIZE RISK OF HOSPITALIZATION. RN/CANAL BOAT CAPTAIN/LOFT WORKER PILE DRIVING TO INSTRUCT ON SELF-CARE MANAGEMENT INCLUDING BREATHING TECHNIQUES, AIRWAY CLEARANCE, AND PROPER USE OF COPD MEDICATIONS. RN TO ASSESS AND TEACH, CANAL BOAT CAPTAIN/LOFT WORKER PILE DRIVING TO OBSERVE AND TEACH PATIENT/CAREGIVER ABILITY TO MONITOR AND RECORD VITAL SIGNS INCLUDING PULSE OXIMETRY AND BLOOD PRESSURE. PULSE OXIMETER AND BP MONITOR TO BE PROVIDED IF NEEDED [code = COPD MANAGEMENT; RN TO ASSESS AND TEACH, CANAL BOAT CAPTAIN/LOFT WORKER PILE DRIVING TO OBSERVE AND TEACH SIGNS/SYMPTOMS OF COPD EXACERBATION AND PROVIDE EARLY INTERVENTIONS TO MINIMIZE RISK OF HOSPITALIZATION. RN/CANAL BOAT CAPTAIN/LOFT WORKER PILE DRIVING TO INSTRUCT ON SELF-CARE MANAGEMENT INCLUDING BREATHING TECHNIQUES, AIRWAY CLEARANCE, AND PROPER USE OF COPD MEDICATIONS. RN TO ASSESS AND TEACH, CANAL BOAT CAPTAIN/LOFT WORKER PILE DRIVING TO OBSERVE AND TEACH PATIENT/CAREGIVER ABILITY TO MONITOR AND RECORD VITAL SIGNS INCLUDING PULSE OXIMETRY AND BLOOD PRESSURE. PULSE OXIMETER AND BP MONITOR TO BE PROVIDED IF NEEDED] Future Scheduled Test PAIN MANAG EMENT; RN TO ASSESS AND TEACH, LOFT WORKER PILE DRIVING/CANAL BOAT CAPTAIN TO OBSERVE AND TEACH AND PROVIDE EDUCATION ON PAIN MANAGEMENT TECHNIQUES. [code = PAIN MANAGEMENT; RN TO ASSESS AND TEACH, LOFT WORKER PILE DRIVING/CANAL BOAT CAPTAIN TO OBSERVE AND TEACH AND PROVIDE EDUCATION ON PAIN MANAGEMENT TECHNIQUES.] Future Scheduled Test DIABETES M ANAGEMENT; RN TO ASSESS AND TEACH, LOFT WORKER PILE DRIVING/CANAL BOAT CAPTAIN TO OBSERVE AND TEACH INSTRUCTIONS OF DIABETIC CARE TO INCLUDE: DIET LOW CARB, SKIN CARE, SIGNS AND SYMPTOMS OF HYPO/HYPERGLYCEMIA, PROPER ADMINISTRATION OF DIABETIC MEDICATION. RN/LOFT WORKER PILE DRIVING/CANAL BOAT CAPTAIN TO INSTRUCT ON DIABETIC FOOT CARE AND MONITOR FOR SKIN LESIONS ON LOWER EXTREMITIES. BLOOD GLUCOSE TESTING DAILY FREQ. RN TO ASSESS AND TEACH, LOFT WORKER PILE DRIVING/CANAL BOAT CAPTAIN TO OBSERVE AND TEACH PATIENT/CAREGIVER ABILITY TO PERFORM AND RECORD BLOOD GLUCOSE TESTING ORDERED AND TO REPORT ABNORMAL FINDINGS TO PHYSICIAN. RN/LOFT WORKER PILE DRIVING/CANAL BOAT CAPTAIN MAY PERFORM BLOOD GLUCOSE TEST NEEDED. RN/LOFT WORKER PILE DRIVING/CANAL BOAT CAPTAIN TO REPORT TO PHYSICIAN BLOOD GLUCOSE READINGS GREATER THAN 400 OR LESS THAN 60 RN/LOFT WORKER PILE DRIVING/CANAL BOAT CAPTAIN TO INSTRUCT PATIENT ON IMPORTANCE OF HGBA1C MONITORING, KIDNEY FUNCTION TEST, EYE AND FOOT EXAMS. [code = DIABETES MANAGEMENT; RN TO ASSESS AND TEACH, LOFT WORKER PILE DRIVING/CANAL BOAT CAPTAIN TO OBSERVE AND TEACH INSTRUCTIONS OF DIABETIC CARE TO INCLUDE: DIET LOW CARB, SKIN CARE, SIGNS AND SYMPTOMS OF HYPO/HYPERGLYCEMIA, PROPER ADMINISTRATION OF DIABETIC MEDICATION. RN/LOFT WORKER PILE DRIVING/CANAL BOAT CAPTAIN TO INSTRUCT ON DIABETIC FOOT CARE AND MONITOR FOR SKIN LESIONS ON LOWER EXTREMITIES. BLOOD GLUCOSE TESTING DAILY FREQ. RN TO ASSESS AND TEACH, LOFT WORKER PILE DRIVING/CANAL BOAT CAPTAIN TO OBSERVE AND TEACH PATIENT/CAREGIVER ABILITY TO PERFORM AND RECORD BLOOD GLUCOSE TESTING ORDERED AND TO REPORT ABNORMAL FINDINGS TO PHYSICIAN. RN/LOFT WORKER PILE DRIVING/CANAL BOAT CAPTAIN MAY PERFORM BLOOD GLUCOSE TEST NEEDED. RN/LOFT WORKER PILE DRIVING/CANAL BOAT CAPTAIN TO REPORT TO PHYSICIAN BLOOD GLUCOSE READINGS GREATER THAN 400 OR LESS THAN 60 RN/LOFT WORKER PILE DRIVING/CANAL BOAT CAPTAIN TO INSTRUCT PATIENT ON IMPORTANCE OF HGBA1C MONITORING, KIDNEY FUNCTION TEST, EYE AND FOOT EXAMS.] Future Scheduled Test FALL REDUC TION MANAGEMENT; RN TO ASSESS AND OBSERVE, CANAL BOAT CAPTAIN/LOFT WORKER PILE DRIVING TO OBSERVE FALL RISK FACTORS AND EDUCATE PATIENT/CAREGIVER ON STRATEGIES TO MINIMIZE THE RISK OF FALLING. [code = FALL REDUCTION MANAGEMENT; RN TO ASSESS AND OBSERVE, CANAL BOAT CAPTAIN/LOFT WORKER PILE DRIVING TO OBSERVE FALL RISK FACTORS AND EDUCATE PATIENT/CAREGIVER ON STRATEGIES TO MINIMIZE THE RISK OF FALLING.] Future Scheduled Test PRN VISITS ; NUMBER OF RN/CANAL BOAT CAPTAIN/LOFT WORKER PILE DRIVING VISITS: 3 RN/CANAL BOAT CAPTAIN/LOFT WORKER PILE DRIVING TO PERFORM: ASSESSMENT FOR THE FOLLOWING REASONS: 1 SNV FOR HTN. 1 SNV FOR FALLS. 1 SNV FOR SS OF WOUND INFECTION, REDNESS, ODOR, INCREASE IN PAIN OR DISCHARGE. [code = PRN VISITS; NUMBER OF RN/CANAL BOAT CAPTAIN/LOFT WORKER PILE DRIVING VISITS: 3 RN/CANAL BOAT CAPTAIN/LOFT WORKER PILE DRIVING TO PERFORM: ASSESSMENT FOR THE FOLLOWING REASONS: 1 SNV FOR HTN. 1 SNV FOR FALLS. 1 SNV FOR SS OF WOUND INFECTION, REDNESS, ODOR, INCREASE IN PAIN OR DISCHARGE.] Goal 2024-12-20 Patient Goal - TO HEEL MY WO UND Goal 2025-02-18 Patient Goal - TO HEEL MY WO UND Goal 2025-04-21 Patient Goal - TO HEEL MY WO UND Goal 2025-05-05 Patient Goal - TO HEEL MY WO UND Goal 2024-10-23 Patient Goal - TO HEEL MY WO UND Goal Provider Goal - A PLAN OF CARE WILL BE ESTABLISHED THAT MEETS THE PATIENT S NEEDS. PATIENT WILL DEMONSTRATE OXYGEN SATURATION WITHIN NORMAL LIMITS OR PATIENT S OPTIMAL LEVEL ESTABLISHED BY THE PHYSICIAN THROUGHOUT CARE. CHANGES TO CO-MORBID CONDITIONS AND ANY NEW CONDITIONS WILL BE IDENTIFIED AND REPORTED TO THE PHYSICIAN. Goal Provider Goal - PATIENT / CAREGIVER WILL VERBALIZE/DEMONSTRATE UNDERSTANDING OF MEASURES TO MANAGE ALTERED CARDIOVASCULAR STATUS BY WEEK OF 06/14/25 Goal Provider Goal - PATIENT / CAREGIVER WILL VERBALIZE/DEMONSTRATE AN ABILITY TO ADHERE TO SELF-MANAGEMENT OF HTN TO MINIMIZE COMPLICATIONS AND AVOID HOSPITALIZATION BY WEEK OF 06/14/25 Goal Provider Goal - PATIENT / CAREGIVER WILL VERBALIZE/DEMONSTRATE UNDERSTANDING OF MEASURES TO MANAGE ALTERED RESPIRATORY STATUS BY WEEK OF 06/14/25 Goal Provider Goal - PATIENT / CAREGIVER WILL VERBALIZE/DEMONSTRATE AN ABILITY TO ADHERE TO SELF-MANAGEMENT OF COPD TO MINIMIZE COMPLICATIONS AND AVOID HOSPITALIZATION BY WEEK OF 06/14/25 Goal Provider Goal - PATIENT / CAREGIVER WILL VERBALIZE / DEMONSTRATE UNDERSTANDING OF PAIN CONTROL MEASURES BY WEEK OF 06/14/25 Goal Provider Goal - PATIENT / CAREGIVER WILL VERBALIZE / DEMONSTRATE AN ABILITY TO ADHERE TO SELF-MANAGEMENT OF DIABETES MANAGEMENT BY WEEK OF 06/14/25 Goal Provider Goal - PATIENT/CAREGIVER WILL VERBALIZE/DEMONSTRATE UNDERSTANDING OF FALL RISK FACTORS AND IMPLEMENT STRATEGIES TO MINIMIZE FALL RISK. PATIENT/CAREGIVER WILL VERBALIZE/DEMONSTRATE AN ABILITY TO ADHERE TO FALL REDUCTION SELF-MANAGEMENT AND LIFE-STYLE CHANGES BY WEEK OF 06/14/25 Goal Provider Goal - Reason for Visit [facility]DEPENDENT IN THE COMMUNITY Encounters Start Date/Time End Date/Time Encounter Type Admission Type Attending [facility] Care Department Encounter ID Discharge Date Discharge Status Discharge Condition Discharge Reason Percent Goals Met 2025-04-23 00:00:00 2025-05-05 00:00:00 Outpatient RECERTIFIC JOHN WHEELER [facility] [id number] 2025-05-05 00:00:00 DISCHARGE TO HOME OR SELF CARE [facility] T IN THE COMMUNITY HH - NO LONGER REQUIRES SKILLED CARE 100.00
--- OUTSIDE RECORDS SUMMARY | 2025-05-04 20:00 | XMS_ITS | Clinical Summary ---
Author Organization Unknown Care Team Providers Care Cash Applications Specialist Name Role Phone LEONID DPM, ORA Unavailable Unavailable STEPHY RN, ALINE Unavailable Unavailable JULIA ARZATEN, ASHELY Unavailable Unavaillisa BATEMAN OT, MITZI Unavailable Unavailable EWA RN, JOHN Unavailable Unavailable CARINA TUCKER/TEMO, JAYLAN Unavailable Un available Payers Payer Name Policy Type Policy Number Effective Date Expira tion Date SAVANNA.MA.O.C.AUTH [id number] ADMISSIONS.CODEREQUEST.MYNEX US.AUTH [id number] CARELON.ANGELICA.MA.C.AUTH [id number] Problems Condition Name Condition Details Condition Category [...] 00 DEPRESSION, UNSPECIFIED Active 10-01 00:00: 00 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 (CURRENT) USE OF INSULIN Active 10-01 00:00: [...] 40 mg tablet 2023-10 00:00: 00 Yes [id number] DEPRESSION 1 tablet DAILY 1 tablet DAILY (route: oral) Med Classific ation: Central Nervous System Agents Coreg 25 mg tablet 2023-10 00:00: 00 Yes [id number] CARDIAC 1 tablet 2 TIMES DAILY 1 tablet 2 TIMES DAILY (route: oral) Med Classific ation: Cardiovas cular Therapy Agents duloxetine 30 mg capsule,del ayed release 2023-10 00:00: 00 Yes [id number] DEPRESSION 1 capsule DAILY 1 capsule DAILY (route: oral) Med Classific ation: Central Nervous System Agents fenofibrate 54 mg tablet 2023-10 00:00: 00 Yes [id number] CARDIAC 1 tablet DAILY 1 tablet DAILY (route: oral) Med Classific ation: Cardiovas cular Therapy Agents furosemide 40 mg tablet 2023-10 00:00: 00 Yes [id number] CARDIAC 1 tablet DAILY 1 tablet DAILY (route: oral) Med Classific ation: Cardiovas cular Therapy Agents gabapentin 800 mg tablet 2023-10 00:00: 00 Yes [id number] PAIN 1 tablet 3 TIMES DAILY 1 tablet 3 TIMES DAILY (route: oral) Med Classific ation: Central Nervous System Agents hydroxyzine HCl 25 mg tablet 2023-10 00:00: 00 Yes [id number] ANXIETY 1 tablet 3 TIMES DAILY 1 tablet 3 TIMES DAILY (route: oral) Med Classific ation: Central Nervous System Agents insulin glargine (U-300) conc. 300 unit/mL (3 mL) subcutaneou s pen 2023-10 00:00: 00 Yes [id number] DM 10 unit BEDTIME 10 unit BEDTIME (route: subcutaneo us) Med Classific ation: Endocrine isosorbide dinitrate 30 mg tablet 2023-10 00:00: 00 Yes [id number] CARDIAC 1 tablet 2 TIMES DAILY 1 tablet 2 TIMES DAILY (route: oral) Med Classific ation: Cardiovas cular Therapy Agents lisinopril 2.5 mg tablet 2023-10 00:00: 00 Yes [id number] HTN 1 tablet DAILY 1 tablet DAILY (route: oral) Med Classific ation: Cardiovas cular Therapy Agents methimazole 5 mg tablet 2023-10 00:00: 00 Yes [id number] THYROID 1 tablet DAILY 1 tablet DAILY (route: oral) Med Classific ation: Endocrine Protonix 40 mg tablet,jerel yed release 2023-10 00:00: 00 Yes [id number] GERD 1 tablet DAILY 1 tablet DAILY (route: oral) Med Classific ation: Gastroint estinal Therapy Agents ropinirole 3 mg tablet 2023-10 00:00: 00 Yes [id number] RLS 1 tablet BEDTIME 1 tablet BEDTIME (route: oral) Med Classific ation: Central Nervous System Agents tizanidine 4 mg tablet 2023-10 00:00: 00 Yes [id number] MUSCLE RELAXER 1 tablet 2 TIMES DAILY 1 tablet 2 TIMES DAILY (route: oral) Med Classific ation: Locomotor System trazodone 150 mg tablet 2023-10 00:00: 00 Yes [id number] SLEEP 1 tablet BEDTIME 1 tablet BEDTIME (route: oral) Med Classific ation: Central Nervous System Agents Linzess 72 mcg capsule 04-23 00:00: 00 Yes [id number] GI 1 capsule DAILY 1 capsule DAILY (route: oral) Med Classific ation: Gastroint estinal Therapy Agents Mounjaro 2.5 mg/0.5 mL subcutaneou s pen injector 04-23 00:00: 00 Yes [id number] A2DM 0.5 mL WEEKLY 0.5 mL WEEKLY [...] LINA QUEZADA RN TO OBSERVE AND ASSESS, PRODUCT MARKETER/YOUTH NUTRITIONAL MONITOR TO OBSERVE FOR RISK FOR FALLS AND INSTRUCT IN FALL PREVENTION, HOME SAFETY, MEDICATION MANAGEMENT, INFECTION PREVENTION, AND NUTRITION MANAGEMENT. RN/PRODUCT MARKETER/YOUTH NUTRITIONAL MONITOR NURSE MAY PERFORM O2 SATURATION LEVEL ON ADMISSION AND PRN FOR DYSPNEA FOR RN TO ASSESS/PRODUCT MARKETER TO OBSERVE PATIENT, WITH NOTIFICATION TO THE PHYSICIAN IF SATURATION IS 90% IN THE ABSENCE OF MORE SPECIFIC PARAMETERS FROM THE PHYSICIAN. AGENCY MAY PERFORM A RESUMPTION OF CARE VISIT FOLLOWING ANY HOSPITAL ADMISSION. RN/PRODUCT MARKETER/YOUTH NUTRITIONAL MONITOR TO MONITOR CO-MORBID CONDITIONS LISTED ON THE PLAN OF CARE AND ANY NEW CONDITIONS THAT PRESENT THEMSELVES DURING THIS EPISODE TO IDENTIFY CHANGES AND INTERVENE TO MINIMIZE COMPLICATIONS. [code = RN TO OBSERVE, ASSESS, EVALUATE, AND DEVELOP AN INDIVIDUALIZED PLAN OF CARE. AGENCY MAY ACCEPT ORDERS FROM CONSULTING PHYSICIANS LINA QUEZADA RN TO OBSERVE AND ASSESS, PRODUCT MARKETER/YOUTH NUTRITIONAL MONITOR TO OBSERVE FOR RISK FOR FALLS AND INSTRUCT IN FALL PREVENTION, HOME SAFETY, MEDICATION MANAGEMENT, INFECTION PREVENTION, AND NUTRITION MANAGEMENT. RN/PRODUCT MARKETER/YOUTH NUTRITIONAL MONITOR NURSE MAY PERFORM O2 SATURATION LEVEL ON ADMISSION AND PRN FOR DYSPNEA FOR RN TO ASSESS/PRODUCT MARKETER TO OBSERVE PATIENT, WITH NOTIFICATION TO THE PHYSICIAN IF SATURATION IS 90% IN THE ABSENCE OF MORE SPECIFIC PARAMETERS FROM THE PHYSICIAN. AGENCY MAY PERFORM A RESUMPTION OF CARE VISIT FOLLOWING ANY HOSPITAL ADMISSION. RN/PRODUCT MARKETER/YOUTH NUTRITIONAL MONITOR TO MONITOR CO-MORBID CONDITIONS LISTED ON THE PLAN OF CARE AND ANY NEW CONDITIONS THAT PRESENT THEMSELVES DURING THIS EPISODE TO IDENTIFY CHANGES AND INTERVENE TO MINIMIZE COMPLICATIONS.] Future Scheduled Test CARDIOVASC ULAR SYSTEM; RN TO ASSESS/TEACH, PRODUCT MARKETER/YOUTH NUTRITIONAL MONITOR TO OBSERVE/TEACH RELATED TO ALTERED CARDIOVASCULAR STATUS TO MINIMIZE COMPLICATIONS AND REDUCE HOSPITALIZATION. [code = CARDIOVASCULAR SYSTEM; RN TO ASSESS/TEACH, PRODUCT MARKETER/YOUTH NUTRITIONAL MONITOR TO OBSERVE/TEACH RELATED TO ALTERED CARDIOVASCULAR STATUS TO MINIMIZE COMPLICATIONS AND REDUCE HOSPITALIZATION.] Future Scheduled Test HYPERTENSI ON MANAGEMENT; RN TO ASSESS AND TEACH, PRODUCT MARKETER/YOUTH NUTRITIONAL MONITOR TO OBSERVE AND TEACH WARNING SIGNS AND SYMPTOMS TO AVOID HOSPITALIZATION. [code = HYPERTENSION MANAGEMENT; RN TO ASSESS AND TEACH, PRODUCT MARKETER/YOUTH NUTRITIONAL MONITOR TO OBSERVE AND TEACH WARNING SIGNS AND SYMPTOMS TO AVOID HOSPITALIZATION.] Future Scheduled Test RESPIRATOR Y SYSTEM MANAGEMENT; RN TO ASSESS AND TEACH, PRODUCT MARKETER/YOUTH NUTRITIONAL MONITOR TO OBSERVE AND TEACH RELATED TO ALTERED RESPIRATORY STATUS TO MINIMIZE COMPLICATIONS AND REDUCE HOSPITALIZATION. [code = RESPIRATORY SYSTEM MANAGEMENT; RN TO ASSESS AND TEACH, PRODUCT MARKETER/YOUTH NUTRITIONAL MONITOR TO OBSERVE AND TEACH RELATED TO ALTERED RESPIRATORY STATUS TO MINIMIZE COMPLICATIONS AND REDUCE HOSPITALIZATION.] Future Scheduled Test COPD MANAG EMENT; RN TO ASSESS AND TEACH, PRODUCT MARKETER/YOUTH NUTRITIONAL MONITOR TO OBSERVE AND TEACH SIGNS/SYMPTOMS OF COPD EXACERBATION AND PROVIDE EARLY INTERVENTIONS TO MINIMIZE RISK OF HOSPITALIZATION. RN/PRODUCT MARKETER/YOUTH NUTRITIONAL MONITOR TO INSTRUCT ON SELF-CARE MANAGEMENT INCLUDING BREATHING TECHNIQUES, AIRWAY CLEARANCE, AND PROPER USE OF COPD MEDICATIONS. RN TO ASSESS AND TEACH, PRODUCT MARKETER/YOUTH NUTRITIONAL MONITOR TO OBSERVE AND TEACH PATIENT/CAREGIVER ABILITY TO MONITOR AND RECORD VITAL SIGNS INCLUDING PULSE OXIMETRY AND BLOOD PRESSURE. PULSE OXIMETER AND BP MONITOR TO BE PROVIDED IF NEEDED [code = COPD MANAGEMENT; RN TO ASSESS AND TEACH, PRODUCT MARKETER/YOUTH NUTRITIONAL MONITOR TO OBSERVE AND TEACH SIGNS/SYMPTOMS OF COPD EXACERBATION AND PROVIDE EARLY INTERVENTIONS TO MINIMIZE RISK OF HOSPITALIZATION. RN/PRODUCT MARKETER/YOUTH NUTRITIONAL MONITOR TO INSTRUCT ON SELF-CARE MANAGEMENT INCLUDING BREATHING TECHNIQUES, AIRWAY CLEARANCE, AND PROPER USE OF COPD MEDICATIONS. RN TO ASSESS AND TEACH, PRODUCT MARKETER/YOUTH NUTRITIONAL MONITOR TO OBSERVE AND TEACH PATIENT/CAREGIVER ABILITY TO MONITOR AND RECORD VITAL SIGNS INCLUDING PULSE OXIMETRY AND BLOOD PRESSURE. PULSE OXIMETER AND BP MONITOR TO BE PROVIDED IF NEEDED] Future Scheduled Test PAIN MANAG EMENT; RN TO ASSESS AND TEACH, YOUTH NUTRITIONAL MONITOR/PRODUCT MARKETER TO OBSERVE AND TEACH AND PROVIDE EDUCATION ON PAIN MANAGEMENT TECHNIQUES. [code = PAIN MANAGEMENT; RN TO ASSESS AND TEACH, YOUTH NUTRITIONAL MONITOR/PRODUCT MARKETER TO OBSERVE AND TEACH AND PROVIDE EDUCATION ON PAIN MANAGEMENT TECHNIQUES.] Future Scheduled Test DIABETES M ANAGEMENT; RN TO ASSESS AND TEACH, YOUTH NUTRITIONAL MONITOR/PRODUCT MARKETER TO OBSERVE AND TEACH INSTRUCTIONS OF DIABETIC CARE TO INCLUDE: DIET LOW CARB, SKIN CARE, SIGNS AND SYMPTOMS OF HYPO/HYPERGLYCEMIA, PROPER ADMINISTRATION OF DIABETIC MEDICATION. RN/YOUTH NUTRITIONAL MONITOR/PRODUCT MARKETER TO INSTRUCT ON DIABETIC FOOT CARE AND MONITOR FOR SKIN LESIONS ON LOWER EXTREMITIES. BLOOD GLUCOSE TESTING DAILY FREQ. RN TO ASSESS AND TEACH, YOUTH NUTRITIONAL MONITOR/PRODUCT MARKETER TO OBSERVE AND TEACH PATIENT/CAREGIVER ABILITY TO PERFORM AND RECORD BLOOD GLUCOSE TESTING ORDERED AND TO REPORT ABNORMAL FINDINGS TO PHYSICIAN. RN/YOUTH NUTRITIONAL MONITOR/PRODUCT MARKETER MAY PERFORM BLOOD GLUCOSE TEST NEEDED. RN/YOUTH NUTRITIONAL MONITOR/PRODUCT MARKETER TO REPORT TO PHYSICIAN BLOOD GLUCOSE READINGS GREATER THAN 400 OR LESS THAN 60 RN/YOUTH NUTRITIONAL MONITOR/PRODUCT MARKETER TO INSTRUCT PATIENT ON IMPORTANCE OF HGBA1C MONITORING, KIDNEY FUNCTION TEST, EYE AND FOOT EXAMS. [code = DIABETES MANAGEMENT; RN TO ASSESS AND TEACH, YOUTH NUTRITIONAL MONITOR/PRODUCT MARKETER TO OBSERVE AND TEACH INSTRUCTIONS OF DIABETIC CARE TO INCLUDE: DIET LOW CARB, SKIN CARE, SIGNS AND SYMPTOMS OF HYPO/HYPERGLYCEMIA, PROPER ADMINISTRATION OF DIABETIC MEDICATION. RN/YOUTH NUTRITIONAL MONITOR/PRODUCT MARKETER TO INSTRUCT ON DIABETIC FOOT CARE AND MONITOR FOR SKIN LESIONS ON LOWER EXTREMITIES. BLOOD GLUCOSE TESTING DAILY FREQ. RN TO ASSESS AND TEACH, YOUTH NUTRITIONAL MONITOR/PRODUCT MARKETER TO OBSERVE AND TEACH PATIENT/CAREGIVER ABILITY TO PERFORM AND RECORD BLOOD GLUCOSE TESTING ORDERED AND TO REPORT ABNORMAL FINDINGS TO PHYSICIAN. RN/YOUTH NUTRITIONAL MONITOR/PRODUCT MARKETER MAY PERFORM BLOOD GLUCOSE TEST NEEDED. RN/YOUTH NUTRITIONAL MONITOR/PRODUCT MARKETER TO REPORT TO PHYSICIAN BLOOD GLUCOSE READINGS GREATER THAN 400 OR LESS THAN 60 RN/YOUTH NUTRITIONAL MONITOR/PRODUCT MARKETER TO INSTRUCT PATIENT ON IMPORTANCE OF HGBA1C MONITORING, KIDNEY FUNCTION TEST, EYE AND FOOT EXAMS.] Future Scheduled Test FALL REDUC TION MANAGEMENT; RN TO ASSESS AND OBSERVE, PRODUCT MARKETER/YOUTH NUTRITIONAL MONITOR TO OBSERVE FALL RISK FACTORS AND EDUCATE PATIENT/CAREGIVER ON STRATEGIES TO MINIMIZE THE RISK OF FALLING. [code = FALL REDUCTION MANAGEMENT; RN TO ASSESS AND OBSERVE, PRODUCT MARKETER/YOUTH NUTRITIONAL MONITOR TO OBSERVE FALL RISK FACTORS AND EDUCATE PATIENT/CAREGIVER ON STRATEGIES TO MINIMIZE THE RISK OF FALLING.] Future Scheduled Test PRN VISITS ; NUMBER OF RN/PRODUCT MARKETER/YOUTH NUTRITIONAL MONITOR VISITS: 3 RN/PRODUCT MARKETER/YOUTH NUTRITIONAL MONITOR TO PERFORM: ASSESSMENT FOR THE FOLLOWING REASONS: 1 SNV FOR HTN. 1 SNV FOR FALLS. 1 SNV FOR SS OF WOUND INFECTION, REDNESS, ODOR, INCREASE IN PAIN OR DISCHARGE. [code = PRN VISITS; NUMBER OF RN/PRODUCT MARKETER/YOUTH NUTRITIONAL MONITOR VISITS: 3 RN/PRODUCT MARKETER/YOUTH NUTRITIONAL MONITOR TO PERFORM: ASSESSMENT FOR THE FOLLOWING REASONS: 1 SNV FOR HTN. 1 SNV FOR FALLS. 1 SNV FOR SS OF WOUND INFECTION, REDNESS, ODOR, INCREASE IN PAIN OR DISCHARGE.] Goal 2024-10-23 Patient Goal - TO HEEL [...] End Date/Time Encounter Type Admission Type Attending [facility] Care Department Encounter ID Discharge Date Discharge Status Discharge Condition Discharge Reason Percent Goals Met 2025-04-23 00:00:00 2025-05-05 00:00:00 Outpatient RECERTIFIC [facility] [id number] 2025-05-05 00:00:00 DISCHARGE TO HOME OR SELF CARE INDEPENDEN T IN THE [facility] - NO LONGER REQUIRES SKILLED CARE 100.00
[2025-05-28 17:31] VITALS: BP 159/48; PULSE 72; RESP 17; TEMP 37; O2SAT 95; BMI 41.9
--- OUTSIDE RECORDS SUMMARY | 2025-05-28 17:55 | XMS_ITS | Encounter Summary ---
Author Organization [employer] ([place], [place], [place], [place]) Address [address] [place] [address] Care Team Providers Care Security Trainer Name Role Phone Unavailable Primary Care Provider Unavailabl e Encounter Details Date Type Department Care Team (Late st Contact Info) Description 03/29/2022 Transcribed Document [facility] [place] [address] [place] [address] ProviderStefani MD [address] [place] [address] Social History Tobacco Use Types [...] Source : Stated Height Entry Format : [place] Height, Feet : 5 ft(Converted to: 152 cm, 60 Inch) Height, Inches : 6 Inch(Converted to: 0 ft 6 Inch, 15.24 cm) Clinical Height : 167.64 cm Weight Source : Standing scale Weight Entry Format : [place] Clinical Dosing Weight : 123.64 kg Weight, Pounds : 272 lb Body Surface Area (BSA) : 2.28 m2 Body Mass Index : 44 kg/m2 (>HHI) [place] Body Weight : 59 kg Justina Childers [...] (Last Updated: 03/29/2022 08:12:04 EDT by Justina Chidlers RN) Alcohol: Alcohol Use History No. (Last [...] Justina Childers RN - 03/29/2022 8:11 EDT [place] Suicide Severity Rating Scale (C-SSRS) CSSRS Past [...] nguyen Support Person/Pt Rep Contact Information : [phone] Want Family/Rep/Phys Notified of Admit : No Emergency Contact #1 : . Emergency Contact #1 Phone Number : . Emergency Contact #1 Relationship : . Emergency Contact #2 : . Emergency Contact #2 Phone Number : . Emergency Contact #2 Relationship : . Primary Language : Occitan Communication Barrier : None Factory Lay Out Engineer Needed : No Justina Childers RN - 03/29/2022 8:11 EDT Sleep Apnea Risk Assmt BiPAP/CPAP Ordered for Home Use : Yes Hx of Obstructive Sleep Apnea Diagnosis : Yes BiPAP/CPAP Used at Home : Yes Age over 50 Years Old : Yes Gender Male : No Justina Childers RN - 03/29/2022 8:11 EDT [place] Scale Kyle Sensory Perception : No impairment [...] Scale Risk Level : 25-45 Medium Risk [place] Fall Interventions : Adequate lighting, Assistive devices [...]
--- OUTSIDE RECORDS SUMMARY | 2025-05-28 17:55 | XMS_ITS | Encounter Summary ---
Author Organization [employer] ([place], [place], [place], [place]) Address [address] [place] [address] Care Team Providers Care Washer Assembler Name Role Phone Unavailable Primary Care Provider Unavailabl e Encounter Details Date Type Department Care Team (Late st Contact Info) Description 03/29/2022 Transcribed Document [facility] [place] Medicine [address] [place] [address] ProviderStefani MD [address] [place] [address] Social History Tobacco Use Types [...]
--- OUTSIDE RECORDS SUMMARY | 2025-05-28 17:55 | XMS_ITS | Clinical Summary ---
Author Organization [employer] [facility] ([place], [place], [place], [place]) Address [address] [place] [address] Care Team Providers Care Stone Sandblaster Name Role Phone Unavailable Primary Care Provider [...]
--- OUTSIDE RECORDS SUMMARY | 2025-05-28 17:55 | XMS_ITS | Encounter Summary ---
Author Organization [employer] ([place], [place], [place], [place]) Address [address] [place] [address] Care Team Providers Care Associate Pastor Name Role Phone Unavailable Primary Care Provider Unavailabl e Encounter Details Date Type Department Care Team (Late st Contact Info) Description 03/29/2022 Transcribed Document [facility] [place] [address] [place] [address] ProviderStefani MD [address] [place] [address] Social History Tobacco Use Types [...] Cole MD - 03/29/2022 12:50 PM [place] [address] SEEMA DELACRUZN :1970 Visit Time:03/29/2022 [...] has been made Where: [address] [place] [address]- [phone] Anulex (1) Medications What How Much When Instructions [...] these instructions at home: Medicines ??? Take cevl-jck-gpnlyvn and prescription medicines only as told by your health care provider. Insertion site care ??? Follow instructions from your health care provider about how to take care of your insertion site. Make sure you: ? Wash your hands with soap and water before you change your bandage (dressing). If soap and water are not available, use hand river expedition guide. ? Change your dressing as told by [...] provider. Document Revised: 10/23/2018 Document Reviewed: 10/23/2018 [employer] Patient Education ?? 2021 [employer] Moderate Conscious Sedation, Adult, Care After [...] eating solid foods. General instructions ??? Take hoei-wli-owihueb and prescription medicines only as told by [...] Reviewed: 08/12/2020 Elsevier Patient Education ?? 2020 [employer] Emergency Awareness and Preventative Care STROKE [...] Assistance with quitting is available by contacting 8-751-XXWUNOW. This is a free resource providing counseling, support, and referral. Or you may contact your personal physician. [place] Suicide Prevention Lifeline: The National Suicide Prevention [...] was given the opportunity to ask questions. Patient/Motor Coach Driver Name: Patient/Motor Coach Driver Signature: Relationship to Patient: Clinician/Hospital Motor Coach Driver Signature: Date: documented in this encounter Plan of Treatment Not on file documented as of this encounter Visit Diagnoses Not on filedocumented in this encounter
--- OUTSIDE RECORDS SUMMARY | 2025-05-28 17:56 | XMS_ITS | Clinical Summary ---
Author Organization [facility] Address [address] [place] [address] Care Team Providers Care Label Pinker Name Role Phone Unavailable Primary Care Provider Unavailabl e Social History Tobacco Use Types Packs/Day Years Used Date Smoking Tobacco: Never Assessed Abuse Screen Answer Date Recorded Unsafe at Home or Work/School Not on file Feels Threatened by Someone? Not on file 05/2023 Does Anyone Keep You from Co ntacting Others or Doint Things Outside the Home? Not on file 07/08/2023 Physical Sign of Abuse Present Not on file 1 Housing Stability Answer Date Recorded Current Living Arrangements Not on file 05/2023 Potentially Unsafe Housing Conditions Not on arabella e 07/08/2023 Family and Community Support Answer Ernie e Recorded Help with Day-to-Day Activities Not on file 07/08/2023 Lonely or Isolated Not on file 07/08/2023 Employment Answer Date Recorded Do you want help finding or keeping work or a shanice b? Not on file 07/08/2023 Disabilities Answer Date Recorded Concentrating, Remembering, or Making Decisions Difficulty Not on file 07/08/2023 Doing Errands Independently Difficulty Not on fi le 07/08/2023 Education Answer Date Recorded Help with school or training? Not on file Preferred Language Not on file 07/08/2023 Comments Unknown Sex and Gender Information Value Date Recorded Sex Assigned at Not on file Legal Sex Female 10:59 AM EDT Gender Identity Not on file Sexual Orientation Not on file Plan of Treatment Health Maintenance Due Date Last Done Comments ANNUAL PHYSICAL 1970 Annual Gynecologic Pelvic and Breast Exam 1970 HEPATITIS C SCREENING 1970 TDAP/TD VACCINES (1 - Tdap) 1988 MAMMOGRAM 2009 COLOGUARD 2014 COLON CANCER SCREENING 5 YEAR SIGMOIDOSCOPY 2014 COLONOSCOPY [address] CANCER SCREENING 2014 CT COLONOGRAPHY 2014 FECAL OCCULT BLOOD TEST 2014 FIT Testing (1 year) 2014 Pneumococcal Vaccine 50+ (1 of 1 - PCV) 2019 ZOSTER VACCINE (1 of 2) 2019 COVID-19 Vaccine (1 - season) 2024 INFLUENZA VACCINE 07/01/2025 Insurance MEDICARE A & B Member Subscriber Plan / Payer (Ef fective 2002-Present) Name:Seema Delacruz Member ID:[id number] Relation to Subscriber:Self Name:Seema Delacruz Subscriber ID:[id number] Payer ID:[id number] Group ID:Not on file Type:Not on file Address: [address]
--- OUTSIDE RECORDS SUMMARY | 2025-05-28 17:56 | XMS_ITS | Encounter Summary ---
Author Organization [facility] Address [address] [place] [address] Care Team Providers Care Industrial Engineering Technologist Name Role Phone Faustino Amador MD Primary Care Provider [phone] Reason for Referral * Consultation (Routine) - Closed Specialty Diagnoses / Procedures Referred By Betito carty Referred To Contact Plastic Surgery Diagnoses Excess skin Khurram Chanel APRN [address] [place] [address] Phone: tel: fax: Referral ID Status Reason Start Date Expiration Date V isits Requested Visits Authorized [id number] Closed Specialty Services Required 11/29/2021 05/31/2023 1 1 Encounter Details Date Type Department Care Team (Late st Contact Info) Description 11/29/2021 Community [facility] Community Practice [address] [place] [address] Khurram Chanel APRN [address] [place] [id number] Excess skin (Primary Dx) Social History Tobacco [...] Primary documented in this encounter Care Teams Industrial Engineering Technologist Relationship Specialty Start Date End Date Faustino Amador MD [address] [place] [address] PCP - General 03/14/21 documented as of this encounter
--- OUTSIDE RECORDS SUMMARY | 2025-05-28 17:56 | XMS_ITS | Encounter Summary ---
Author Organization [facility] ([place], [place], [place], [place]) Address [address] [place] [address] Care Team Providers Care Special Shopper Name Role Phone Unavailable Primary Care Provider Unavailabl e Encounter Details Date Type Department Care Team (Late st Contact Info) Description 03/29/2022 Transcribed Document [facility] [place] [facility] [address] [place] [address] ProviderStefani MD [address] [place] [address] Social History Tobacco Use Types [...] these instructions at home: Medicines ??? Take xjjb-rnj-ekclbqf and prescription medicines only as told by your health care provider. Insertion site care ??? Follow instructions from your health care provider about how to take care of your insertion site. Make sure you: ? Wash your hands with soap and water before you change your bandage (dressing). If soap and water are not available, use hand power electronics research engineer. ? Change your dressing as told by [...] provider. Document Revised: 10/23/2018 Document Reviewed: 10/23/2018 [employer] Patient Education ? 2020 [employer] Pharmacology Moderate Conscious Sedation, Adult, Care [...] eating solid foods. General instructions ??? Take [id number]-fvphfgi and prescription medicines only as told by [...] provider. Document Revised: 01/14/2021 Document Reviewed: 08/12/2020 [employer] Patient Education ? 2020 [employer] documented in this encounter Plan of Treatment Not on file documented as of this encounter Visit Diagnoses Not on filedocumented in this encounter
--- OUTSIDE RECORDS SUMMARY | 2025-05-28 17:56 | XMS_ITS | Clinical Summary ---
Author Organization [facility] Address [address] [place] [address] Phone Care Team Providers Care Transportation Job Titles Name Role Phone Sanaz RN, Linn Unavailable [...] lower limb Acute respiratory failure with hypercapnia 55469557 (SNOMED CT) Active Freda Medina Acute respiratory failure Leukemoid reaction 55695391 (SNOMED CT) Active Freda Medina Leukemoid reaction long-term (current) use of systemic steroids Z79.52 (ICD-10-CM ) Active Freda Medina long-term (current) use of systemic steroids Benign Essential Hypertension 81493902 (SNOMED CT) Active Freda Medina Benign hypertension [...]
--- OUTSIDE RECORDS SUMMARY | 2025-05-28 17:56 | XMS_ITS | Clinical Summary ---
Author Organization [facility] Address [address] [place] [address] Phone Care Team Providers Care Panel Fitter Name Role Phone Unavailable Primary Care Provider [...] Impressions 11/19/2023 7:29 AM EST Benign finding ([id number]-[id number]-4) ~ RECOMMENDATION: Routine screening mammogram in 1 [...] the next mammogram, in accordance with the [employer] and the Society of Breast Imaging recommendations. Narrative 11/19/2023 7:29 AM EST Procedure:MM MAMMO DIGITAL EULALIA SCREEN BILAT ~ Reason for exam: screening, asymptomatic. Z12.31-Encounter for screening mammogram for malignant neoplasm of scpaaz-HUD-18-CM ~ MM MAMMO DIGITAL EULALIA SCREEN BILAT [...] for screening mammogram for malignant neoplasm of agfjku-SVO-98-CM ~ MM MAMMO DIGITAL EULALIA SCREEN BILAT [...] evidence of malignancy. ~ IMPRESSION: Benign finding (YPD-Gkllkytn-0) ~ RECOMMENDATION: Routine screening mammogram in 1 [...] the next mammogram, in accordance with the [place] [employer] and the Society of Breast Imaging recommendations. us Not In [facility] Provider IMG MAMMOGRAPHY ORDERABLES Final Result from Last 3 Months or Most Recently Relevant to Health Maintenance [place] [address] [place] [address] AETNA MEDICARE HMO
--- OUTSIDE RECORDS SUMMARY | 2025-05-28 17:56 | XMS_ITS | Clinical Summary ---
Author Organization [facility] Address [address] [place] [address] Care Team Providers Care Director Instructional Material Name Role Phone Faustino Amador MD Primary Care Provider + [phone] Allergies Active Allergy Reactions Criticality Noted Date Comments Ceftriaxone Hives Medium 05/05/2021 Droperidol Hives Medium 05/05/2021 Ibuprofen Hives Medium 05/05/2021 Metformin Other - please docum ent in the comment field Low 12/03/2023 GI issues Moxifloxacin Hives Medium 05/05/2021 Medications carvedilol (Coreg) 25 MG tablet Take 1 tablet (25 mg) by mouth 2 (two) times a day with meals. 09/03/20 Active DULoxetine (Cymbalta) [address] capsule Take 1 capsule (60 mg) by mouth 1 (one) time each day. 07/05/20 Active escitalopram (Lexapro) 20 MG tablet Take 1 tablet (20 mg) by mouth 1 (one) time each day. 07/05/20 Active fenofibrate (Tricor) 54 MG tablet Take 1 tablet (54 mg) by mouth 1 (one) time each day. 07/05/20 Active furosemide (Lasix) 80 MG tablet TAKE 1 TABLET TWICE DAILY 07/05/20 Active isosorbide mononitrate ER (Imdur) 30 MG 24 hr tablet Take 1 tablet (30 mg) by mouth 1 (one) time each day. 09/03/20 19 Active nitroglycerin (Nitrostat) 0.4 MG SL tablet 10/05/20 20 Active rOPINIRole (Requip) 3 MG tablet Take [...] day. 10/10/19 Active Lancets (OneTouch Delica Plus [id number]) [facility] 07/11/20 Active Easy Comfort Pen [place] 31G X 5 MM [facility] 12/11/19 Active HumuLIN 70/30 KWIKPEN (70-30) 100 UNIT/ML injection 60 Units 2 (two) times a day before meals. 09/06/20 Active OneTouch Verio test strip 07/11/20 Active gabapentin (Neurontin) 400 MG capsule Take 1 capsule (400 mg) by mouth 4 (four) times a day. 11/21/19 Active cyclobenzaprine (Fexmid) 7.5 MG tablet every night. 10/28/19 Active Continuous Blood Gluc Sensor (FreeStyle Joelle 14 Day Sensor) [facility] 11/14/19 Active diclofenac (Voltaren) 75 MG EC tablet Take 1 tablet (75 mg) by mouth 2 (two) times a day. 05/18/20 Active traZODone (Desyrel) 100 MG tablet Take 3 tablets (300 mg) by mouth every night. Active acetaminophen (Tylenol) 500 MG tablet Take 2 tablets (1,000 mg total) by mouth every 8 (eight) hours. 100 tablet 1 08/26/20 22 Active albuterol 0.63 MG/3ML nebulizer solution inhale contents of 1 vial by nebulizer four times a day as directed 10/29/19 24 Active ergocalciferol 1.25 MG (56294 UT) capsule Take 1 capsule every week by oral route for 90 days. 10/29/19 24 Active methocarbamol (Robaxin) 500 MG tablet 10/29/19 24 Active ondansetron ODT (Zofran-ODT) [address] 1 tablet every 4-6 hours by translingual route as needed. Active therapeutic multivitamin-employment appeals examiner als (Theragran-M) tablet Take 1 tablet [...] higher 05/25/2022 Excessive skin and subcutaneous tissue 2 Hematoma 03/07/2022 Overview (05/24/2022): Added automatically from request for surgery [id number] Excess skin 12/16/2021 Overview (12/16/2021): Added automatically from request for surgery [id number] Microalbuminuria 03/12/2020 Cervical radiculopathy 11/22/2018 Neck pain [...] drink first t debra in the morning (EYE-FLAME DEGREASER) to steady your nerves or to get [...] Health Maintenance Due Date Last Done Comments [facility]-Diabetes: Hemoglobin A1C 1969 [facility]-HIV Screening 1969 [facility]-Hepatitis C Screening 1969 [facility]-Medicare Annual Wellness (AWV) 1969 [facility]-Infant/Child/Adol SDOH Screenings 1969 Diabetes: Dental Exam 1979 [facility]- SDOH Screenings 1987 [facility]-Adult SDOH Screenings 1987 [facility]-DTaP,Tdap,and Td Vaccines (1 - Tdap) 1988 [facility]-Hepatitis B Vaccines (1 of 3 - 19+ 3-dose series) 1988 [facility]-Pap Smear 1990 [facility]-Cervical Cancer Screening 1999 [facility]-HPV/Cotest 1999 CT Colonography 2014 Colonoscopy 2014 [facility]-DNA 2014 FIT 2014 FOBT 2014 Sigmoidoscopy 2014 [facility]-Colorectal Cancer Screening 2014 [facility]-Lung Cancer Screening 2019 [facility]-Zoster Vaccines (1 of 2) 2019 [id number]-75 Vaccine (3 - season) 2024 04/07/2021, 03/17/2021 [facility]-Depression Screening 11/12/2024 [...] this topic Medical Devices Implanted Type Area Nitroglycerin Nitrator Operator Batch Device Identifier Shelf Expiration Date Model / Serial / Lot Pain Pump Pain Pump Right: Back Insurance [employer] MEDICAID AETNA MEDICARE [facility] MEDICARE Advance Directives * Full Code (Latest Code Status on File) Date Activated Date Inactivated Comments 05/24/2022 4:10 PM 05/26/2022 3:36 PM Question Answer Comments Patient has decision-making capacity? Yes Care Teams Director Instructional Material Relationship Specialty Start Date End Date Faustino Amador MD [address] [place] [id number] PCP - General 03/14/21
--- OUTSIDE RECORDS SUMMARY | 2025-05-28 17:56 | XMS_ITS | Referral Summary ---
Author Organization [facility] ([place], [place], [place], [place]) Address [address] [place] [id number] Care Team Providers Care Mechanic Welder Name Role Phone Unavailable Primary Care Provider [...]
--- OUTSIDE RECORDS SUMMARY | 2025-05-28 17:56 | XMS_ITS | Encounter Summary ---
Author Organization [employer] ([place], [place], [place], [place]) Address [address] [place] [id number] Care Team Providers Care Trench Digging Machine Operator Name Role Phone Unavailable Primary Care Provider Unavailabl e Encounter Details Date Type Department Care Team (Late st Contact Info) Description 03/29/2022 Transcribed Document [facility] Cardiology [address] [place] [address] Faustino West MD [address] [facility] [address] [place] [id number] Social History Tobacco Use Types Packs/Day Years [...] WEST MD-CAR Basic Information PCP: Dr. Amador Data Technician: Noris Fallon MD Chief Complaint Abnormal Stress [...] Active COPD - Chronic obstructive pulmonary disease (161425851) HLD - Hyperlipidemia (701326127) HTN - Hypertension (9883179054) MEGHAN - Obstructive sleep apnea (4082985481) Type 2 diabetes mellitus (133104994) Family History: Father HDL - High density [...] of motion, Normal strength. Integumentary: Warm, Dry, [place]. Neurologic: Alert, Oriented. Psychiatric: Cooperative, Appropriate mood [...]
--- NOTE | 2025-05-28 18:00 | HMH.EDGENADL ---
Discharge Plan Disposition Chief Complaint: PAIN Prescriptions Prescriptions: No Action insulin glargine 100 unit/mL (3 mL) insulin pen 10 unit SQ HS Qty: 15 2RF carvedilol 25 mg tablet 25 mg PO BID 90 Days Qty: 180 2RF fenofibrate 54 mg tablet 54 mg PO DAILY Qty: 90 2RF lisinopril 2.5 mg tablet 2.5 mg PO DAILY Qty: 90 2RF lidocaine 5 % ointment 1 applic topical BID PRN (Reason: pain) 30 Days Qty: 50 3RF azithromycin 250 mg tablet 250 mg PO DAILY Patient Comments: TAKE 2 TABLETS BY MOUTH ON DAY 1, THEN TAKE 1 TABLET DAILY ON DAYS 2-5 prednisolone acetate 1 % drops,suspension 1 drp Eye-Right ONCE Patient Comments: INSTILL ONE drop IN THE AFFECTED EYE four times a DAY FOR SEVEN DAYS THEN decrease TO TWICE DAILY FOR 14 DAYS gentamicin 0.3 % drops 1 drp Ear-Right . Patient Comments: INSTILL ONE drop operative eye four times a DAY FOR SEVEN DAYS Mounjaro 5 mg/0.5 mL pen injector 5 mg SQ . Patient Comments: INJECT 5mg UNDER THE SKIN EVERY WEEK silver sulfadiazine [Silvadene] 1 % cream 1 applic topical DAILY 30 Days Qty: 50 2RF Rx Instructions: apply a 1.5 mm thickness gabapentin 600 mg tablet 600 mg PO TID Patient Comments: TAKE ONE TABLET BY MOUTH THREE TIMES DAILY (DME) FreeStyle Joelle 14 Day Sensor Kit See Rx Instructions .ROUTE .COMPLEX Qty: 1 0RF Dose Instruction: DIRECTED Rx Instructions: DIRECTED (DME) flash glucose sensor 1 EACH kit See Rx Instructions .Route CONT Rx Instructions: change sensor every 14 days (DME) FreeStyle Joelle 14 Day [place] Misc See Rx Instructions .Route Rx Instructions: As directed furosemide 40 mg tablet 40 mg PO BID Patient Comments: TAKE ONE TABLET BY MOUTH TWICE DAILY FOR 90 DAYS ropinirole 3 mg tablet 3 mg PO HS Patient Comments: TAKE ONE TABLET BY MOUTH NIGHTLY AT BEDTIME trazodone 150 mg tablet 150 mg PO HS Patient Comments: TAKE ONE TABLET BY MOUTH NIGHTLY AT BEDTIME pantoprazole 40 mg tablet,delayed release (DR/EC) 40 mg PO DAILY tizanidine [Zanaflex] 4 mg tablet 4 mg PO BID PRN (Reason: Myalgia) Patient Comments: TAKE ONE TABLET BY MOUTH TWICE DAILY NEEDED FOR 30 DAYS isosorbide dinitrate 30 mg tablet 30 mg PO BID Patient Comments: TAKE ONE TABLET BY MOUTH TWICE DAILY FOR 90 DAYS methimazole 5 mg tablet 2.5 mg PO DAILY Patient Comments: TAKE 1/2 TABLET BY MOUTH EVERY DAY hydroxyzine pamoate [Vistaril] 25 mg capsule 25 mg PO TID PRN (Reason: Panic Disorder) Patient Comments: Take 1 capsule 3 times a day by oral route as needed for 30 days. methocarbamol 1,000 mg tablet 1,000 mg PO TID Qty: 90 2RF citalopram [Celexa] 40 mg tablet 40 mg PO DAILY duloxetine [Cymbalta] 60 mg capsule,delayed release(DR/EC) 60 mg PO DAILY tramadol 50 mg tablet 50 mg PO TID PRN (Reason: pain) Qty: 90 2RF Referrals Follow up/Referrals: Linn Montana APRN [Primary Care Provider, Medical] - See instructions Print Language Print Language: Telugu Discharge ED Provider: Paulo Frank Adult [facility] General Chief complaint: PAIN Stated complaint: Left arm and left hand numb Time Seen by Provider: 05/28/25 18:00 Mode of Arrival: Ambulatory Source of Information: Patient Description of Symptoms (Recalled from ER Triage Doc. by RN): pt to the ED from home with left side neck pain x a few weeks with numbness and tingling that radiates down to her left hand. pt denies any known injury. pt reports she felt like she slept on it wrong but itsnt sure. no other complaints or unilateral deficits at this time. Related Data Home Medications ?Medication ?Instructions ?Recorded ?Confirmed flash glucose sensor 05/04/22 05/25/25 flash glucose scanning reader 08/14/22 05/25/25 (FreeStyle Joelle 14 Day [place]) furosemide 40 mg tablet 40 mg PO BID 07/02/24 05/25/25 hydroxyzine pamoate 25 mg capsule 25 mg PO TID PRN Panic Disorder 07/02/24 05/25/25 (Vistaril) isosorbide dinitrate 30 mg tablet 30 mg PO BID 07/02/24 05/25/25 methimazole 5 mg tablet 2.5 mg PO DAILY 07/02/24 05/25/25 pantoprazole 40 mg tablet,delayed 40 mg PO DAILY 07/02/24 05/25/25 release ropinirole 3 mg tablet 3 mg PO HS 07/02/24 05/25/25 tizanidine 4 mg tablet (Zanaflex) 4 mg PO BID PRN Myalgia 07/02/24 05/25/25 trazodone 150 mg tablet 150 mg PO HS 07/02/24 05/25/25 citalopram 40 mg tablet (Celexa) 40 mg PO DAILY 09/11/24 05/25/25 duloxetine 60 mg capsule,delayed 60 mg PO DAILY MOOD 09/11/24 05/25/25 release (Cymbalta) gabapentin 600 mg tablet 600 mg PO TID 02/05/25 05/25/25 azithromycin 250 mg tablet 250 mg PO DAILY 05/11/25 05/25/25 gentamicin 0.3 % eye drops 1 drp Ear-Right . 05/11/25 05/25/25 prednisolone acetate 1 % eye 1 drp Eye-Right ONCE 05/11/25 05/25/25 drops,suspension tirzepatide 5 mg/0.5 mL 5 mg SQ . 05/11/25 05/25/25 subcutaneous pen injector (Janet) Previous Rx's ?Medication ?Instructions ?Recorded carvedilol 25 mg tablet 25 mg PO BID High blood pressure 02/15/23 90 days #180 tabs fenofibrate 54 mg tablet 54 mg PO DAILY Cholesterol #90 tabs 02/15/23 insulin glargine 100 unit/mL (3 10 unit (0.1 mL) SQ HS Diabetes 02/15/23 mL) subcutaneous pen #15 mL lisinopril 2.5 mg tablet 2.5 mg PO DAILY Hypertension #90 02/15/23 tabs methocarbamol 1,000 mg tablet 1,000 mg PO TID muscle spasms #90 04/16/23 tabs flash glucose sensor (FreeStyle #1 ea 06/15/23 Joelle 14 Day Sensor kit) silver sulfadiazine 1 % topical 1 applic topical DAILY 30 days #50 10/28/24 cream (Silvadene) grams lidocaine 5 % topical ointment 1 applic topical BID PRN pain 30 04/06/25 days #50 grams tramadol 50 mg tablet 50 mg PO TID PRN pain #90 tabs 05/22/25 Allergies Allergy/AdvReac Type Severity Reaction Status Date / Time ceftriaxone (From ROCEPHIN) Allergy Unknown Rash Verified 05/25/25 15:05 droperidol (From INAPSINE) Allergy Unknown Hives Verified 05/25/25 15:05 ibuprofen (IBUPROFEN) Allergy Unknown Hives Verified 05/25/25 15:05 moxifloxacin (From AVELOX) Allergy Unknown Rash Verified 05/25/25 15:05 [facility] Disclaimer: The information contained in this section may have been updated after the patient was seen, as this information can be updated by other users. Medical History Numbness and tingling Pre-ulcerative calluses Ingrown toenail of left foot Intractable neuropathic pain of right lower extremity Skin change Decreased pedal pulses Diabetic foot ulcer Pain in both feet Viral upper respiratory tract infection Leg pain Anxiety about health Moderate depressive disorder Cellulitis Patient left without being seen Chronic pain disorder Lumbar radiculopathy, acute Neuropathic pain Hyperglycemia Hypothyroidism Other forms of angina pectoris Other specified depressive episodes Neuralgia and neuritis Hypertension with goal to be determined Anxiety with somatization Vitamin D deficiency Microalbuminuria Keratosis Callus of foot Onychodystrophy Onychoincurvatum Bronchitis Angina at rest Right flank pain Chest pain Presence of intrathecal pump Excess skin of arm bilateral removal Encounter for wound care 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 Type 2 diabetes mellitus Diabetic foot Surgical History Total knee replacement status bilateral Family History Other Family history of COPD (chronic obstructive pulmonary disease) Family history of cancer Family history of diabetes mellitus type II Family history of hypertension Family history of myocardial infarction Social History Smoking Status: Current some day smoker tobacco type: cigarettes packs per day: 1 pack-years: 35 second hand exposure: Yes alcohol intake: never substance use type: denies use current occupational status: other Travel in the last 8 weeks?: None household members: friend(s) housing: house lives independently: Yes marital status: single education level: high school current occupation: [employer] caffeine: Yes special heather needs: No agree to transfusion: No do you feel safe at home: Yes victim of physical abuse: No victim of emotional abuse: No victim of sexual abuse: No would you like helpful sources: No Have you lived/traveled outside [place] in past 30 days?: No Contact w/someone who lives/traveled outside US past 30 days?: No Exposure to someone with infectious disease in past 14 days?: No Do you have a fever (greater than 100.4 F or 38 C)?: No Have you tested positive for COVID-19?: No Exposed to someone with COVID-19 in past 14 days?: No Do you have a sore throat?: No Do you have a cough?: No Do you have any weakness?: No Do you have any diarrhea?: No Are you experiencing any unusual bleeding?: No Do you have any muscle aches/pain?: No Do you have any abdominal pain?: No Are you experiencing loss of taste or smell?: No Other Medical History Have you received the Flu Vaccine for this season: No Have you received the Pneumonia Vaccine: No Medical Decision Making Medical Records Screening: Per USPSTF and CDC recommendations, given the prevalence of disease in our region, it is our hospital?s policy to screen for HIV and viral Hepatitis for all patients aged 18 and over and those with ongoing risk factors. Vital Signs: 05/28/25 17:31 Temperature 98.6 F Temperature Source Oral Pulse Rate [Left Radial] 72 Respiratory Rate 17 Blood Pressure [Right Arm] 159/48 H Blood Pressure Mean [Right Arm] 85 Blood Pressure Source [Right Arm] Automatic Cuff Blood Pressure Position [Right Arm] Sitting 02 Sat by Pulse Oximetry 95 Oxygen Delivery Method Room Air
--- NOTE | 2025-05-28 18:29 | PC.NURSE ---
Provider went to see patient and patient was nowhere to be found. Looked in lobby, looked in parking lot. Patient unable to be located.
== END 2025-05-28 18:30 | disposition left against medical advice (07) ==
LOC: ER 17:54
PROVIDERS: Emergency Provider Student in an Organized Health Care Education/Training Program; PCP Nurse Practitioner
DX: Z53.21 Procedure and treatment not carried out due to patient leaving prior to being seen by health care provider (principal)
CPT/HCPCS: 99211; 99282

== ENCOUNTER 2025-06-09 08:10 | Day surgery (SDC) | payer MEDICARE, OTHER, SELFPAY ==
[2025-06-09 08:52] VITALS: BP 161/84; PULSE 71; RESP 20; TEMP 36.4; O2SAT 96; BMI 41.9
[2025-06-09] MEDS: TETRACAINE 0.5% OPTH SOL 15ML OP ×3 (09:00→09:10)
[2025-06-09] MEDS: PHENYLEPHRINE 2.5% OPHTH SOLN 2ML OP ×3 (09:00→09:10)
[2025-06-09] MEDS: CYCLOPENTOLATE 2% OPHTH SOLN 2ML BOTTLE OP ×3 (09:00→09:10)
[2025-06-09] MEDS: SODIUM CHLORIDE 0.9% 10ML FLUSH SYRINGE 10 ML IV (09:27)
[2025-06-09 09:32] LABS: POC Glucose,Bedside 150 gm/dL (70-110)
[2025-06-09 11:02] VITALS: BP 160/70; PULSE 74; RESP 16; O2SAT 99
[2025-06-09] MEDS: MIDAZOLAM 2MG/2ML VIAL 1 MG IV (11:03)
[2025-06-09] MEDS: LIDOCAINE 1% PF 2ML VIAL 2 ML IJ (11:03)
[2025-06-09] MEDS: TOBRAMYCIN/DEX OPTH SUSP 2.5ML OP (11:04)
[2025-06-09] MEDS: TIMOLOL 0.5% OPTH SOLN 5ML OP (11:04)
[2025-06-09 11:07] VITALS: BP 143/61; PULSE 76; RESP 16; O2SAT 99
[2025-06-09 11:12] VITALS: BP 139/63; BP 140/68; PULSE 73; PULSE 74; RESP 16; O2SAT 99
[2025-06-09 11:17] VITALS: BP 157/94; PULSE 76; RESP 19; TEMP 36.3; O2SAT 93
--- NOTE | 2025-06-09 13:07 | HMH.PROCNOTE ---
[facility] Procedure Note Date: 06/09/25 Time: 13:07 Procedure Note:: Preoperative Diagnosis: Cataract combined NS Cortical Complex [Left] Eye Postop diagnosis: same Operation: Microscopic phacoemulsification with intraocular lens implant [Left] Eye Specimen: None Blood Loss: None The patient was examined in the office with a complaint of poor vision in the [left] eye. The patient reports that this interferes with ADLs such as reading, watching TV and/or driving or the vision is like looking through a foggy haze and is very troubling. The patient was examined and found to have a visually significant cataract with best corrected vision of [20/400] by refraction and/or glare testing. Treatment options, risks and benefits were explained and the patient elected to have cataract surgery in an attempt to improve their vision. The patient had the eye anesthetized with topical tetracaine, the eye ways prepped and draped in the usual fashion for cataract surgery. A paracentesis and a temporal keratotomy were made. 0.2cc of 1% lidocaine PF was placed into the anterior chamber. And aqueous/viscoelastic exchange was done and a 360 degree capsulorexis was performed. Through hydrodissection and delineation with BSS on a cannula was done. The lens nucleus was phecoemulsified with CDE of [6.88]. Residual cortical material was removed using automated I&A The capsular bag was deepened with viscoelastica and a PCIOL was placed in the capsular bag with good centration and stability. Residual viscoelastic was removed using automated I&A. The keratotomy incision was hydrated with BSS on a cannula. The wound were checked and found to be water tight. IOP was checked digitally and adjusted as needed so as not to be too high. 1 drop of timolol 0.5%, ofloxacin, prednisolone acetate and ketorolac was instilled and eye shield taped over the eye. The patient was taken to recovery in good condition and will be seen postoperatively.
== END 2025-06-09 11:25 | disposition home or self-care (01) ==
PROVIDERS: PCP Nurse Practitioner; Visit Provider Ophthalmology
PROC: (CPT 66984; principal; 2025-06-09 11:30)
DX: H25.813 Combined forms of age-related cataract, bilateral (principal); H53.8 Other visual disturbances; H02.831 Dermatochalasis of right upper eyelid; H02.834 Dermatochalasis of left upper eyelid; E11.36 Type 2 diabetes mellitus with diabetic cataract; I10 Essential (primary) hypertension; J44.9 Chronic obstructive pulmonary disease, unspecified; E78.00 Pure hypercholesterolemia, unspecified; F41.9 Anxiety disorder, unspecified; M19.90 Unspecified osteoarthritis, unspecified site; K21.9 Gastro-esophageal reflux disease without esophagitis; F32.A Depression, unspecified; F17.210 Nicotine dependence, cigarettes, uncomplicated; Z88.6 Allergy status to analgesic agent; Z88.1 Allergy status to other antibiotic agents; Z88.8 Allergy status to other drugs, medicaments and biological substances; Z79.899 Other long term (current) drug therapy; Z79.4 Long term (current) use of insulin; Z79.85 Long-term (current) use of injectable non-insulin antidiabetic drugs
CPT/HCPCS: 66984; 82962; J2250; V2632

== ENCOUNTER 2025-07-06 15:56 | Outpatient (CLI) | payer MEDICARE, OTHER, SELFPAY ==
--- NOTE | 2025-07-06 16:00 | CA_ITS ---
FINAL REPORT CLINICAL HISTORY: Smoker, DM, hyperbaric O2 therapy clinic on wound on bottom of right foot since 04-29-25, obesity, cellulitis. Unable to start scanning in the groin due to severe groin galling. scan started mid thigh. FINDINGS: DUPLEX VENOUS SONOGRAPHY OF THE RIGHT LOWER EXTREMITY Multiple transverse and longitudinal scans were performed of the femoropopliteal deep venous system, with augmentation and compression maneuvers. Exam is technically limited. The common femoral vein was unable to be evaluated. There is no evidence of DVT within the femoral vein or popliteal vein. There is limited evaluation of the veins in the upper calf. IMPRESSION: Technically limited exam. No DVT within the femoral vein or popliteal vein. Reviewed, Interpreted and Dictated by Valentina Lopes MD Transcribed by Vida Rodriguez Authenticated and . [facility]
--- OUTSIDE RECORDS SUMMARY | 2025-07-06 16:00 | XMS_ITS | Continuity of Care Document ---
Author Organization [place] - [facility], Main Office Address [address] [place] [address] Care Team Providers Care Relief Driller Name Role Phone STEPHY YUSUF Primary Care Provider Assessment No assessment recorded. Plan of Treatment Reminders Order Date Submit Date Provider Last Modified By Organization Details Last Modified Time Details Appointments Hyperb julio Therap y-120 2024 10:30A M [facility] Not available Not available Not available Hyperb julio Therap y-120 2024 10:30A M [facility] Not available Not available Not available Hyperb julio Therap y-120 2024 10:30A M [facility] Not available Not available Not available Hyperb julio Therap y-120 2024 10:30A M [facility] Not available Not available Not available Hyperb julio Therap y-120 2024 10:30A M [facility] Not available Not available Not available Hyperb julio Therap y-120 2024 10:30A M [facility] Not available Not available Not available Hyperb julio Therap y-120 2024 10:30A M [facility] Not available Not available Not available Hyperb julio Therap y-120 2024 10:30A M [facility] Not available Not available Not available Hyperb julio Therap y-120 2024 10:30A M [facility] Not available Not available Not available Hyperb julio Therap y-120 2024 10:30A M [facility] Not available Not available Not available Hyperb julio Therap y-120 2024 10:30A M [facility] Not available Not available Not available Hyperb julio Therap y-120 2024 10:30A M [facility] Not available Not available Not available Hyperb julio Therap y-120 2024 10:30A M [facility] Not available Not available Not available Hyperb julio Therap y-120 2024 10:30A M [facility] Not available Not available Not available Hyperb julio Therap y-120 2024 10:30A M [facility] Not available Not available Not available Hyperb julio Therap y-120 2024 10:30A M [facility] Not available Not available Not available Hyperb julio Therap y-120 2024 10:30A M [facility] Not available Not available Not available Hyperb julio Therap y-120 2024 10:30A M [facility] Not available Not available Not available Hyperb julio Therap y-120 2024 10:30A M [facility] Not available Not available Not available Hyperb julio Therap y-120 2024 10:30A M [facility] Not available Not available Not available Hyperb julio Therap y-120 2024 10:30A M [facility] Not available Not available Not available Hyperb julio Therap y-120 2024 10:30A M [facility] Not available Not available Not available Hyperb julio Therap y-120 2024 10:30A M [facility] Not available Not available Not available Hyperb julio Therap y-120 2024 10:30A M [facility] Not available Not available Not available Hyperb julio Therap y-120 2024 10:30A M [facility] Not available Not available Not available Hyperb julio Therap y-120 2024 10:30A M [facility] Not available Not available Not available Hyperb julio Therap y-120 2024 10:30A M [facility] Not available Not available Not available Hyperb julio Therap y-120 2024 10:30A M [facility] Not available Not available Not available Hyperb julio Therap y-120 2024 10:30A M [facility] Not available Not available Not available Hyperb julio Therap y-120 2024 10:30A M [facility] Not available Not available Not available Hyperb julio Therap y-120 2024 10:30A M [facility] Not available Not available Not available Hyperb julio Therap y-120 2024 10:30A M [facility] Not available Not available Not available Hyperb julio Therap y-120 2024 10:30A M [facility] Not available Not available Not available Hyperb julio Therap y-120 2024 10:30A M [facility] Not available Not available Not available Lab None record ed. Referral None record ed. Procedures None record ed. Surgeries None record ed. Imaging None record ed. Medication Orders None record ed. Patient TargetsNo targets recorded. Patient Instructions Encounter Date Encounter Id Patient Instructions Last Modified By Organization Details Last Modified Time 06/25/2025 [id number] BACKGROUND: Seema Delacruz is a 55 y.o. female who comes to see us today as a HBOT referral from Dr. Ortiz. Ms Delacruz has right foot Diabetic wounds, that are chronic and Vega stage 3. She has difficulty staying off of her foot. In the past she has refused knee scooter, wheelchair and other offloading devices. She only walks around at home but otherwise stays off the foot. Today she presents to our clinic via wheelchair, and states that she is less mobile now, and trying to offload wounds. She relates pain with walking. She says her gait is unstable. She is morbidly obese with uncontrolled lymphedema and abnormal gait secondary to back pain and peripheral neuropathy. Per recent CT scan it is suggestive of chronic osteomyelitis, but patient unable to have MRI due to pain pump and pain stimulator in back. Diagnosis: L97.512, E11.621 ___ ___ Session Notes: Today's Date [id number] HBOT session 38 of 40 Next HBOT [id number] 30Jul - Patient cleared for 1st HBOT today. VS stable, FSBG within range. PAtient had trouble clearing ears before reaching 1.5 SANTY, and we were only able to get to 1.45 SANTY, then she started having left sided chest pain. WE brought her out, and performed an EKG, which was normal. In talking with the patient, she does have anxiety, and has medication she will take tomorrow before trying to do another session. We will also have her wear ear plugs during treatment. Nicolasa HUTTONN 31July - Patient cleared for HBOT today. FSBG was very low prior to treatment. We gave patient juice, a snack, and glucose gel, which brought her sugar up to 91, post treatment sugar was 100. Advised patient to not take insulin in am before treatment. Patient able to complete treatment today, wearing ear plugs, but right ear was slightly red, but she was asymptomatic. Nicolasa HUTTONN 01Aug - Patient deemed safe for HBOT today. VS stable. Patient completed full session with no problem. Antoinette Lau VIDEO GAME SCRIPT WRITER 04Aug - Patient deemed safe for HBOT today. VS stable. Patient completed full session with no problem. Antoinette Lau APRN 05Aug - patient out for another appt. STEARNS 06Aug - Patient deemed safe for HBOT today. VS stable. Patient started experiencing sinus/occular/ and ear pain during treatment, which we were only able to get to 1.35 SANTY, and even reducing pressure to 1.25 she was in considerable pain. WE made the decision to stop treatment today. We also did a HA1c on her in clinic today, which was 8.1%, which is lower than previous 10-11% value. I also called in antibiotics for an upper respiratory infection. Nicolasa VIDEO GAME SCRIPT WRITER 07Aug- Patient cleared for HBOT today. VS stable. PAtient had little trouble reaching pressure today, but had to come out of chamber early due to needing to use restroom. She managed to do 4 segs-118 minutes. [place].Tanner VIDEO GAME SCRIPT WRITER 08Aug - Patient cleared for HBOT today. VS stable. Patient completed full session with no problem. Antoinette Lau VIDEO GAME SCRIPT WRITER 11Aug - Patient cleared for HBOT today. VS stable. Patient completed full session, but FSBG was 52 post treatment. She took a glucose gel pack, and it came up to 60. I then make her a breakfast burrito and her FSBG cam up to 95. Patient said she felt much better after eating. We will try to make sure her FSBG are a bit higher on a daily basis. Nicolasa HUTTONN 12Aug - Patient cleared for HBOT today. VS stable. Patient completed full session with no problem. [place].Jessica Lau VIDEO GAME SCRIPT WRITER 13Aug - Patient cleared for HBOT today. VS stable. Patient completed full session with no problem. Wound care to follow treatment today. Antoinette Lau VIDEO GAME SCRIPT WRITER 14Aug - Patient cleared for HBOT today. VS stable. Patient completed full session with no problem. Antoinette Lau VIDEO GAME SCRIPT WRITER 15Aug - Patient cleared for HBOT today. VS stable. Soon after reaching pressure, patient states that she is having cheat pain. WE brought her out, and did an EKG, which was normal Sinus Rhythm. I talked with the patient, and she took her Vistaril, and we attempted to go back into chamber. After another 20 minutes, she was having increased anxiety again, and asked to come out. WE brought her out and she will attempt to try again on Sunday. Nicolasa VIDEO GAME SCRIPT WRITER 18Aug - Patient cleared for HBOT today. VS stable. Patient completed full session with no problem. Antoinette Lau VIDEO GAME SCRIPT WRITER 19Aug - Patient deemed safe for HBOT today. VS stable. FSBS within range. Patient completed full session with no problem. Antoinette Lau VIDEO GAME SCRIPT WRITER 2015Aug - Patient cleared for HBOT today. VS stable. Soon after reaching pressure, patient states that she is having anxiety, and wants to come out of chamber. We tried turning down pressure, and giving an air break, but she still insist on coming out. We brought her out, VS stable, wound care done. Nicolasa HUTTONN 21Aug - Patient deemed safe for HBOT today. VS stable. FSBS within range. Patient completed full session with no problem. Patient better tolerated treatment today in larger chamber with no reports of anxiety during treatment. Antoinette Lau APRN 22Aug - Cleared for HBOT this date and did complete full session with no problem including no significant anxiety. Dressing change today per nursing. LEXIS WATERS 25Aug - Patient deemed safe for HBOT today. VS stable. Patient completed full session with no problem. Antoinette Lau APRN 26Aug - Patient cleared for HBOT today. VS stable. Patient completed full session with no problem. I spoke with patient, and she feels much better in the larger chamber, having almost no anxiety at all now. Antoinette Lau APRN 27Aug - Patient deemed safe for HBOT today. VS stable. FSBS within range. Patient completed full session with no problem. Antoinette Lau APRN 28Aug - Found safe for HBOT this date andcompleted full session free of problem. [facility] [place] [facility] [place] 29Aug - Cleared for HBOT his date and completed full session free of problem. Of note, this patient continues to smoke tobacco cigarettes. LEXIS WATERS 02Sep - Patient deemed safe for HBOT today. VS stable. Patient completed full session with no problem. Antoinette Lau APRN 03Sep - Patient deemed safe for HBOT today. VS stable. Patient completed full session with no problem. Antoinette Lau APRN 04Sep - Patient deemed safe for HBOT today. VS stable. Patient completed full session with no problem. Pt had wound care as well as an orange juice after tx bc her sugar was 72 coming out. Sat for about 15/20 minutes before getting up. Antoinette Lau APRN 05Sep - Found safe for HBOT this date and completed full session with no problem. However, on emerging her Dexcom read 62 for which she was symptom-free. Kept under observation until yuko above 80 and was discharged with 92. Estefania WATERS 08Sep - Patient deemed safe for HBOT today. VS stable. Patient completed full session with no problem. Antoinette Lau APRN 10Sep - Patient deemed safe for HBOT today. VS stable. Patient completed full session with no problem. Antoinette Lau APRN 11Sep - Patient cleared for HBOT today. VS stable. Patient completed full session with no problem. Antoinette Lau APRN 12Sep - Found safe for HBOT this date. Completed curtailed session free of problem. Session shortened to satisfy demand of ride provider. Estefania WATERS 15Sep - Patient cleared for HBOT today. VS stable. Patient completed full session with no problem. Antoinette Lau APRN 16Sep - Patient cleared for HBOT today. VS stable. Patient completed full session with no problem. Antoinette Lau APRN 17Sep - Patient cleared for HBOT today. VS stable. Patient completed full session with no problem. Antoinette Lau APRN 18Sep - Patient cleared for HBOT today. VS stable. Patients sugar upon arrival was 79, given orange juice and peanut butter crackers. Rechecked after a few minutes and it was already up to 98. After the first OJ, pt said she was feeling way better and could feel her sugar rising but just to be sure and have extra precaution, she drank about half of a 2nd bottle of orange juice and sent the other half into the chamber with her in her water bottle. Also sent in with glucose gel. sugar was 113 post treatment. Patient completed full session with no problem. Antoinette Lau APRN 19Sep - today patient arrived with suitable Glu so was cleared to proceed with HBOT taking a Glu Gel into chamber with her. She experienced no problem in chamber so completed full session, emerging with a border line safe Glu. She took snack items with her as she was to proceed to another medical appointment. Estefania WATERS 22Sep - Patient cleared for HBOT today. VS stable. Patient completed full session with no problem. Antoinette Lau APRN 23Sep - Patient cleared for HBOT today. VS stable. Patient completed full session with no problem. Antoinette Lau APRN 24Sep - Patient cleared for HBOT today. VS stable. Patient completed full session with no problem. M.A. Judi VIDEO GAME SCRIPT WRITER 25Sep - Patient cleared for HBOT today. VS stable. Patient completed full session with no problem. IsraelDeepaliMonicaDeepali Lau VIDEO GAME SCRIPT WRITER Not available 06/25/2025 14:27:27 Reason for Referral None Reported. Problems Name Problem SNOMED Code Status Onset Date Resolution Date Notes Provider Name and Address Organization Details Recorded Time Upper respiratory infection 93261959 Active 2024 COLEMAN LAU NP null, [place] - [facility] 12:18:40 Episodic migraine 4876967312605 Active 2024 COLEMAN LAU NP null, [place] - [facility] 12:34:01 Type 2 diabetes mellitus 93447665 Active 2024 COLEMAN LAU NP null, [place] - [facility] 15:27:12 Refractory migraine with aura 565629988 Active 2024 COLEMAN LAU NP null, [place] - [facility] 10:56:52 Problem Notes None recorded. Procedures Surgical History Date Name Laterality Status Provider Name and Address Organization Details Recorded Time 07/06/20 [facility] Therapy Treatment Form completed Carolyn roland [place] - [facility] 07/06/2025 13:06:29 07/03/20 25 [facility] Therapy Treatment Form completed Paula Licea [place] - [facility] 07/03/2025 12:47:29 07/02/20 25 [facility] Therapy Treatment Form completed Paula Licea [place] - [facility] 07/02/2025 13:06:39 07/01/20 25 [facility] Therapy Treatment Form completed Paula Licea [place] - [facility] 07/01/2025 13:05:37 06/30/20 25 [facility] Therapy Treatment Form completed COLEMAN LAU NP [place] - [facility] 06/30/2025 13:46:12 06/29/20 25 [facility] Therapy Treatment Form completed Carolyn roland [place] - [facility] 06/29/2025 13:24:58 06/26/20 25 [facility] Therapy Treatment Form completed MD DOLORES [place] - [facility] 06/26/2025 16:57:55 06/25/20 25 [facility] Therapy Treatment Form completed Carolyn roland [place] - [facility] 06/25/2025 12:47:07 06/24/20 25 [facility] Therapy Treatment Form completed [facility] - [facility] 06/24/2025 12:40:20 06/23/20 25 [facility] Therapy Treatment Form completed [facility] - [facility] 06/23/2025 12:39:50 06/22/20 25 [facility] Therapy Treatment Form completed [facility] - [facility] 06/22/2025 12:49:55 06/19/20 25 [facility] Therapy Treatment Form completed Manfred Shelton MD [place] - [facility] 06/19/2025 14:13:24 06/18/20 25 [facility] Therapy Treatment Form completed COLEMAN LAU NP [place] - [facility] 06/18/2025 13:17:34 06/17/20 25 [facility] Therapy Treatment Form completed [facility] - [facility] 06/17/2025 12:29:15 06/16/20 25 [facility] Therapy Treatment Form completed [facility] - [facility] 06/16/2025 12:45:53 06/15/20 25 [facility] Therapy Treatment Form completed [facility] - [facility] 06/15/2025 12:47:07 06/12/20 25 [facility] Therapy Treatment Form completed Manfred Shelton MD [place] - [facility] 06/12/2025 14:54:52 06/11/20 25 [facility] Therapy Treatment Form completed [facility] - [facility] 06/11/2025 13:02:39 06/10/20 25 [facility] Therapy Treatment Form completed [facility] - [facility] 06/10/2025 12:50:18 06/08/20 25 [facility] Therapy Treatment Form completed [facility] - [facility] 06/08/2025 12:56:07 06/05/20 25 [facility] Therapy Treatment Form completed Evelia Winters [place] - [facility] 06/05/2025 14:28:16 06/04/20 25 Wound completed COLEMAN LAU NP [place] - [facility] 06/04/2025 14:24:29 06/04/20 25 [facility] Therapy Treatment Form completed COLEMAN LAU NP [place] [facility] 06/04/2025 13:56:49 06/03/20 25 [facility] Therapy Treatment Form completed Evelia Beckhiram [place] - [facility] 06/03/2025 14:11:11 06/02/20 25 [facility] Therapy Treatment Form completed Carolyn roland [place] - [facility] 06/02/2025 13:09:37 05/29/20 25 [facility] Therapy Treatment Form completed Carolyn roland [place] - [facility] 05/29/2025 12:25:31 05/28/20 25 [facility] Therapy Treatment Form completed Carolyn roland [place] - [facility] 05/28/2025 13:02:44 05/27/20 25 Wound completed COLEMAN LAU NP [place] - [facility] 05/27/2025 13:18:22 05/27/20 25 [facility] Therapy Treatment Form completed Carolyn roland [place] - [facility] 05/27/2025 12:50:01 05/26/20 25 Nurse Note completed Luciana Noriega [place] - [facility] 05/26/2025 16:40:42 05/26/20 25 [facility] Therapy Treatment Form completed Carolyn roland [place] - [facility] 05/26/2025 12:27:56 05/25/20 25 [facility] Therapy Treatment Form completed Carolyn roland [place] [facility] 05/25/2025 13:12:32 05/22/20 25 [facility] Therapy Treatment Form completed Carolyn roland [place] - [facility] 05/22/2025 12:33:28 05/21/20 25 [facility] Therapy Treatment Form completed Carolyn luan [place] - [facility] 05/21/2025 12:47:49 05/20/20 25 Wound completed COLEMAN LAU NP [place] - [facility] 05/20/2025 13:22:44 05/20/20 25 [facility] Therapy Treatment Form completed Moraima Moses [place] - [facility] 05/20/2025 12:52:27 05/19/20 25 [facility] Therapy Treatment Form completed Evelia Singh [place] - [facility] 05/19/2025 13:53:26 05/18/20 25 [facility] Therapy Treatment Form completed Carolyn roland [place] - [facility] 05/18/2025 13:22:00 05/15/20 25 [facility] Therapy Treatment Form completed Mary Miranda [place] - [facility] 05/15/2025 14:10:27 05/15/20 25 [facility] Additional Air Breaks Therapy Treatment Form completed Mary BERNAL - [facility] 05/15/2025 14:17:22 05/14/20 25 [facility] Therapy Treatment Form completed Mary BERNAL - [facility] 05/14/2025 13:46:28 05/13/20 25 Wound completed COLEMAN LAU NP [place] - [facility] 05/13/2025 14:38:11 05/13/20 25 [facility] Therapy Treatment Form completed Moraima Moses [place] [facility] 05/13/2025 13:30:22 05/12/20 25 [facility] Therapy Treatment Form completed Mary Miranda [place] [facility] 05/12/2025 13:20:36 05/11/20 25 [facility] Therapy Treatment Form completed Moraima Moses [place] [facility] 05/11/2025 14:12:30 05/08/20 25 Wound completed COLEMAN LAU NP [place] - [facility] 05/08/2025 14:12:38 05/08/20 25 [facility] Therapy Treatment Form completed Mary BERNAL - [facility] 05/08/2025 13:37:30 05/07/20 25 [facility] Therapy Treatment Form completed Mary BERNAL - [facility] 05/07/2025 13:01:51 05/06/20 25 Wound completed COLEMAN LAU NP [place] - [facility] 05/07/2025 08:29:18 05/06/20 25 [facility] Therapy Treatment Form completed Mary BERNAL - [facility] 05/06/2025 12:30:26 05/04/20 25 [facility] Therapy Treatment Form completed Carolyn roland [place] - [facility] 05/04/2025 12:48:46 05/01/20 25 [facility] Therapy Treatment Form completed Mary BERNAL - [facility] 05/01/2025 12:20:36 04/30/20 25 [facility] Therapy Treatment Form completed COLEMAN LAU NP [place] - [facility] 04/30/2025 14:18:39 04/29/20 25 [facility] Therapy Treatment Form completed Mary BERNAL - [facility] 04/29/2025 13:00:12 Knee Replacement completed Luciana Noriega [place] - [facility] 04/23/2025 14:32:38 procedure on integumentary system completed Luciana BERNAL - [facility] 04/23/2025 14:33:00 cataract surgery completed Luciana BERNAL - [facility] 04/23/2025 14:33:07 amputation of toe completed Luciana Noriega [place] - [facility] 04/23/2025 14:33:26 Imaging Results None recorded. Procedure Notes None recorded. Medical Equipment None Reported. Allergies Allergen ID Allergen Name Allergen Category Reaction Reaction Severity Criticality Documentation Date Start Date Code Code System Note Provider Name and Address Organization Details Recorded Time 1101 ibuprofen medicatio n Not available Not available Not available 04/23/2025 5640 RxNorm Luciana servin, [place] - [facility] 14:25:04 1102 Rocephin medicatio n Not available Not available Not available 04/23/2025 9449 RxNorm Luciana servin, [place] - [facility] 14:25:10 1103 Inapsine medicatio n Not available Not available Not available 04/23/202508054 3 RxNorm Luciana servin, [place] - [facility] 14:25:27 1104 Avelox medicatio n Not available Not available Not available 04/23/2025 77609 6 RxNorm Luciana servin, [place] - [facility] 14:25:52 1105 metformin medicatio n other Not available low 04/23/20252023 6809 RxNorm GI issue s Luciana servin [place] - [facility] 14:26:11 1253 Product containin g angiotens in-conver ting enzyme inhibitor (product) medicatio n cough moderate Not available 06/26/2025 93467 009 SNOMED Not Available taisha - External Data Service - prod 10:54:20 1254 metformin hydrochlo ride medicatio n Not available Not available Not available 06/26/2025 78088 3 RxNorm Not Available taisha - External Data Service - prod 10:54:20 Medications Name Sig Start Date Stop Date Status Note LastModified by Organization Details LastModified Time butorphanol 10 mg/mL nasal spray Take 1 spray as needed by nasal route for 1 day, for once, may repeat in 3-4 hours if needed. 06/12 completed Not Available Not Available Not Available silver sulfadiazin e 1 % topical cream APPLY A 1/16 INCH (1.5 MM) THICK LAYER TO ENTIRE BURN AREA BY TOPICAL ROUTE 2 TIMES PER DAY active Not Available Not Available No t Available gabapentin 600 mg tablet TAKE ONE TABLET BY MOUTH THREE TIMES DAILY FOR 30 DAYS active Not Available Not Available No t Available azithromyci n 250 mg tablet TAKE 2 TABLETS BY MOUTH ON DAY 1, THEN TAKE 1 TABLET DAILY ON DAYS 2-5 active Not Available Not Available No t Available tizanidine 4 mg tablet TAKE ONE TABLET BY MOUTH TWICE DAILY NEEDED active Not Available Not Available No t Available sulfamethox azole 800 mg-trimetho prim 160 mg tablet TAKE 1 TABLET BY MOUTH TWICE DAILY active Not Available Not Available No t Available tramadol 50 mg tablet TAKE 1 TABLET BY MOUTH 3 TIMES DAILY NEEDED FOR PAIN active Not Available Not Available No t Available mupirocin 2 % topical ointment APPLY A SMALL AMOUNT TO THE AFFECTED AREA BY TOPICAL ROUTE 2 TIMES PER DAY active Not Available Not Available No t Available hydroxyzine pamoate 25 mg capsule TAKE ONE CAPSULE BY MOUTH THREE TIMES DAILY NEEDED FOR 30 DAYS active Not Available Not Available No t Available tizanidine active Not Available Not Av ailable Not Available citalopram active Not Available Not Av ailable Not Available methocarbam ol active Not Available Not Available Not Available tramadol active Not Available Not Avai lable Not Available ropinirole active Not Available Not Av ailable Not Available Silvadene active Not Available Not Hodan ilable Not Available Bactrim active Not Available Not Avail able Not Available furosemide active Not Available Not Av ailable Not Available carvedilol active Not Available Not Av ailable Not Available lisinopril active Not Available Not Av ailable Not Available hydroxyzine pamoate active Not Available Not Available Not Available methimazole active Not Available Not A vailable Not Available trazodone active Not Available Not Hodan ilable Not Available isosorbide active Not Available Not Av ailable Not Available gabapentin active Not Available Not Av ailable Not Available pantoprazol e active Not Available Not Available Not Available insulin glargine active Not Available Not Available Not Available duloxetine active Not Available Not Av ailable Not Available fenofibrate active Not Available Not A vailable Not Available Linzess active Not Available Not Avail able Not Available semaglutide active Not Available Not A vailable Not Available FreeStyle Joelle 14 Day Sensor kit change every 14 days, use to monitor blood glucose active Not Available Not Available No t Available Mounjaro 5 mg/0.5 mL subcutaneou s pen injector INJECT 5mg UNDER THE SKIN EVERY WEEK active Not Available Not Available No t Available Vitals Date Recorded Heart rate Respiratory rate Body temperature Oxygen saturation Oxygen saturation in Arterial blood by Pulse oximetry Heart rate Respiratory rate Body temperature Oxygen saturation Oxygen saturation in Arterial blood by Pulse oximetry Systolic And Diastolic Systolic And Diastolic Provider Name and Address Organization Details Last Updated DateTime 5 73 /min 16 /min 98.2 [degF] 92 % 92 % 79 /min 16 /min 97.9 [degF] 96 % 96 % 162/73 mm[Hg] 131/73 mm[Hg] [facility] 5 12:47:27 Social History None recorded. Functional Status None recorded. Mental Status None recorded. Family History Nothing Reported. Medical History Condition Response Allergies/Hayfever Y Heart Problems N Coronary Artery Disease N Gout N Blood Diseases N Ear or Hearing Problems N Hyperthyroidism N Breast Cancer N Thyroid Problems N COPD Y Hypothyroidism Y Depression Y Lung Disease N GI Problems N Developmental or Behavioral Disorders N Skin Problems Y Anemia N Anxiety Disorder Y Diabetes Y Muscle, Joint, or Bone Problems N Arthritis Y Seizures/Epilepsy N AIDS/HIV N Congestive Heart Failure (CHF) N Cancer N Stroke N Diverticulitis N Asthma N Endometriosis N Bladder or Kidney Problems N Liver Disease N Heart Disease N Fibromyalgia N Headaches Y Chronic Ear Infections N Hypertension Y Osteoporosis N Kidney Disease N Gynecological HistoryNo gynecological history recorded. Obstetrics History GPAL:G 0 P 0 0 0 0 Past Encounters Encounter ID Performer Location Encounter Start Date Encounter Closed Date Diagnosis/Indication Diagnosis SNOMED-CT Code Diagnosis ICD10 Code Diagnosis IMO Codes Diagnosis Note [id number] COLEMAN LAU NP Main Office [address] [place] [address] 05/25/2025 10:54:17 05/25/2025 14:23:41 [id number] COLEMAN LAU NP Main Office [address] [place] [address] 05/26/2025 10:04:52 05/26/2025 13:22:24 [id number] COLEMAN JUDI, [employer] MACHINE SET UP OPERATOR Main Office [address] [place] [address] 05/26/2025 16:38:48 05/26/2025 16:40:45 [id number] COLEMAN JUDI, [employer] FORMING MACHINE SET UP OPERATOR Main Office [address] [place] [address] 05/27/2025 10:11:43 05/27/2025 13:22:20 [id number] COLEMAN JUDI, ROLL FORMING MACHINE SET UP OPERATOR Main Office [address] [place] [address] 05/27/2025 13:11:38 05/27/2025 13:19:10 [id number] Manfred Shelton MD Main Office [address] [place] [address] 05/28/2025 10:14:13 05/29/2025 08:47:13 [id number] Manfred Shelton MD Main Office [address] [place] [address] 05/29/2025 10:04:58 05/29/2025 17:43:48 [id number] Manfred Shelton MD Main Office [address] [place] [address] 06/02/2025 10:25:50 06/02/2025 14:14:27 [id number] Manfred Shelton MD Main Office [address] [place] [address] 06/03/2025 10:16:52 06/03/2025 14:45:20 [id number] Manfred Shelton MD Main Office [address] [place] [address] 06/04/2025 10:31:23 06/04/2025 13:58:07 [id number] Manfred Shelton MD Main Office [address] [place] [address] 06/04/2025 14:13:52 06/04/2025 14:25:08 [id number] Manfred Shelton MD Main Office [address] [place] [address] 06/05/2025 10:55:07 06/05/2025 16:50:44 [id number] Manfred Shelton MD Main Office [address] [place] [address] 06/08/2025 10:25:37 06/08/2025 14:39:12 [id number] Manfred Shelton MD Main Office [address] [place] [address] 06/10/2025 10:19:13 06/10/2025 13:21:20 [id number] Manfred Shelton MD Main Office [address] [place] [address] 06/11/2025 10:35:04 06/11/2025 14:11:07 [id number] Manfred Shelton MD Main Office [address] [place] [address] 06/12/2025 10:59:45 06/12/2025 14:56:49 [id number] Manfred Shelton MD Main Office [address] [place] [address] 06/15/2025 10:50:33 06/15/2025 13:14:21 [id number] Manfred Shelton MD Main Office [address] [place] [address] 06/16/2025 10:14:56 06/16/2025 13:52:36 [id number] Manfred Shelton MD Main Office [address] [place] [address] 06/17/2025 10:28:52 06/17/2025 13:18:56 [id number] Manfred Shelton MD Main Office [address] [place] [address] 06/18/2025 10:16:09 06/18/2025 13:16:04 [id number] Manfred Shelton MD Main Office [address] [place] [address] 06/19/2025 10:44:19 06/19/2025 14:15:39 [id number] COLEMANPATRICE LAU NP Main Office [address] [place] [address] 06/22/2025 10:36:06 06/22/2025 14:32:28 [id number] Manfred Shelton MD Main Office [address] [place] [address] 06/23/2025 10:18:15 06/23/2025 14:03:00 [id number] Manfred Shelton MD Main Office [address] [place] [address] 06/24/2025 10:23:16 06/24/2025 13:37:08 [id number] Manfred Shelton MD Main Office [address] [place] [address] 06/25/2025 10:19:36 06/25/2025 14:27:35 Health Concerns Section Related Observation LastModified by Organization Detai ls LastModified Time None Recorded Concern Status LastModified by Organization Details LastModified Time None Recorded Payers Encounter Date Sequence Insurance Name Policy Number Policy Gonzales Covered Member ID Gonzales Member ID Guarantor Name 06/25/2025 2 [employer] [facility] Seema Delacruz [id number] Seema Delacruz 06/25/2025 1 [employer] Seema Delacruz [id number] Seema Delacruz OBGyn Episode No OBEpisode recorded.
--- OUTSIDE RECORDS SUMMARY | 2025-07-06 16:01 | XMS_ITS | Continuity of Care Document ---
Author Organization [place] - [facility], Main Office Address [address] [place] [address] Care Team Providers Care Rn Occupational Health Name Role Phone STEPHY YUSUF Primary Care Provider [phone] Assessment No assessment recorded. Plan of Treatment [...] Modified By Organization Details Last Modified Time 05/15/2025 9906 BACKGROUND: Seema Delacruz is a 55 y.o. [...] E11.621 ___ ___ Session Notes: Today's Date [id number] HBOT session 12 of 40 Next HBOT [id number] 30Jul - Patient cleared for 1st HBOT [...] her wear ear plugs during treatment. Nicolasa MANAGER VAN 31July - Patient cleared for HBOT today. [...] was slightly red, but she was asymptomatic. [place].Tanner MANAGER VAN 01Aug - Patient deemed safe for HBOT today. VS stable. Patient completed full session with no problem. [place].Jessica Lau MANAGER VAN 04Aug - Patient deemed safe for HBOT today. VS stable. Patient completed full session with no problem. Antoinette Lau MANAGER VAN 05Aug - patient out for another appt. [...] antibiotics for an upper respiratory infection. Nicolasa MANAGER VAN 07Aug- Patient cleared for HBOT today. VS stable. PAtient had little trouble reaching pressure today, but had to come out of chamber early due to needing to use restroom. She managed to do 4 segs-118 minutes. Nicolasa MANAGER VAN 08Aug - Patient cleared for HBOT today. VS stable. Patient completed full session with no problem. Antoinette Lau MANAGER VAN 11Aug - Patient cleared for HBOT today. [...] bit higher on a daily basis. Nicolasa MANAGER VAN 12Aug - Patient cleared for HBOT today. VS stable. Patient completed full session with no problem. Antoinette Lau MANAGER VAN 13Aug - Patient cleared for HBOT today. VS stable. Patient completed full session with no problem. Wound care to follow treatment today. Antoinette Lau MANAGER VAN 14Aug - Patient cleared for HBOT today. VS stable. Patient completed full session with no problem. Antoinette Lau MANAGER VAN 15Aug - Patient cleared for HBOT today. [...] attempt to try again on Sunday. Nicolasa MANAGER VAN Not available 05/18/2025 08:55:15 Reason for Referral None Reported. Problems Name Problem SNOMED Code Status Onset Date Resolution Date Notes Provider Name and Address Organization Details Recorded Time Upper respiratory infection 35605842 Active 2024 ABDOULAYE HAQ, [place] - [facility] 08/06/202 5 12:18:40 Episodic migraine [id number] 06 Active 2024 COLEMAN LAU NP null, [place] - [facility] 12:34:01 Type 2 diabetes mellitus 64019705 Active 2024 COLEMAN LAU NP null, [place] - [facility] 15:27:12 Refractory migraine with aura 336451917 Active 2024 COLEMAN LAU NP null, [place] - [facility] 10:56:52 Problem Notes None recorded. Procedures Surgical History Date Name Laterality Status Provider Name and Address Organization Details Recorded Time 07/06/20 [facility] Therapy Treatment Form completed Carolyn roland [place] - [facility] 07/06/2025 13:06:29 07/03/20 25 [facility] Therapy Treatment Form completed Paula Licea [place] - [facility] 07/03/2025 12:47:29 07/02/20 25 [facility] Therapy Treatment Form completed Paulajuancarlos Licea [place] - [facility] 07/02/2025 13:06:39 07/01/20 25 [facility] Therapy Treatment Form completed Paula Licea [place] - [facility] 07/01/2025 13:05:37 06/30/20 25 [facility] Therapy Treatment Form completed COLEMAN LAU NP [place] - [facility] 06/30/2025 13:46:12 06/29/20 25 [facility] Therapy Treatment Form completed [facility] [place] - [facility] 06/29/2025 13:24:58 06/26/20 25 [facility] Therapy Treatment Form completed Manfred Shelton MD [place] - [facility] 06/26/2025 16:57:55 06/25/20 25 [facility] Therapy Treatment Form completed [facility] [place] - [facility] 06/25/2025 12:47:07 06/24/20 25 [facility] Therapy Treatment Form completed [facility] [place] - [facility] 06/24/2025 12:40:20 06/23/20 25 [facility] Therapy Treatment Form completed [facility] [place] - [facility] 06/23/2025 12:39:50 06/22/20 25 [facility] Therapy Treatment Form completed Carolyn luan [place] - [facility] 06/22/2025 12:49:55 06/19/20 25 [facility] Therapy Treatment Form completed Manfred Shelton MD [place] - [facility] 06/19/2025 14:13:24 06/18/20 25 [facility] Therapy Treatment Form completed COLEMAN LAU NP [place] - [facility] 06/18/2025 13:17:34 06/17/20 25 [facility] Therapy Treatment Form completed [facility] [place] - [facility] 06/17/2025 12:29:15 06/16/20 25 [facility] Therapy Treatment Form completed [facility] [place] - [facility] 06/16/2025 12:45:53 06/15/20 25 [facility] Therapy Treatment Form completed [facility] [place] - [facility] 06/15/2025 12:47:07 06/12/20 25 [facility] Therapy Treatment Form completed Manfred Shelton MD [place] - [facility] 06/12/2025 14:54:52 06/11/20 25 [facility] Therapy Treatment Form completed [facility] [place] - [facility] 06/11/2025 13:02:39 06/10/20 25 [facility] Therapy Treatment Form completed [facility] [place] - [facility] 06/10/2025 12:50:18 06/08/20 25 [facility] Therapy Treatment Form completed [facility] [place] - [facility] 06/08/2025 12:56:07 06/05/20 25 [facility] Therapy Treatment Form completed Eveliapatricia Marinahiram [place] - [facility] 06/05/2025 14:28:16 06/04/20 25 Wound completed COLEMAN LAU NP [place] - [facility] 06/04/2025 14:24:29 06/04/20 25 [facility] Therapy Treatment Form completed COLEMAN LAU NP [place] - [facility] 06/04/2025 13:56:49 06/03/20 25 [facility] Therapy Treatment Form completed Eveliapatricia Winters [place] - [facility] 06/03/2025 14:11:11 06/02/20 25 [facility] Therapy Treatment Form completed [facility] [place] - [facility] 06/02/2025 13:09:37 05/29/20 25 [facility] Therapy Treatment Form completed [facility] [place] - [facility] 05/29/2025 12:25:31 05/28/20 25 [facility] Therapy Treatment Form completed [facility] [place] - [facility] 05/28/2025 13:02:44 05/27/20 25 Wound completed COLEMAN LAU NP [place] - [facility] 05/27/2025 13:18:22 05/27/20 25 [facility] Therapy Treatment Form completed Carolyn BERNAL - [facility] 05/27/2025 12:50:01 05/26/20 25 Nurse Note completed Luciana Noriega [place] - [facility] 05/26/2025 16:40:42 05/26/20 25 [facility] Therapy Treatment Form completed Carolyn BERNAL - [facility] 05/26/2025 12:27:56 05/25/20 25 [facility] Therapy Treatment Form completed Carolyn luan [place]ER[place] - [facility] 05/25/2025 13:12:32 05/22/20 25 [facility] Therapy Treatment Form completed Carolyn roland [place] - [facility] 05/22/2025 12:33:28 05/21/20 25 [facility] Therapy Treatment Form completed Carolyn BERNAL - [facility] 05/21/2025 12:47:49 05/20/20 25 Wound completed COLEMAN LAU NP [place] - [facility] 05/20/2025 13:22:44 05/20/20 25 [facility] Therapy Treatment Form completed Moraima Johnsons [place] - [facility] 05/20/2025 12:52:27 05/19/20 25 [facility] Therapy Treatment Form completed Evelia Winters [place] - [facility] 05/19/2025 13:53:26 05/18/20 25 [facility] Therapy Treatment Form completed Carolyn BERNAL - [facility] 05/18/2025 13:22:00 05/15/20 25 [facility] Therapy Treatment Form completed Mary Miranda [place] - [facility] 05/15/2025 14:10:27 05/15/20 25 [facility] Additional Air Breaks Therapy Treatment Form completed Mary Riveroer [place] - [facility] 05/15/2025 14:17:22 05/14/20 25 [facility] Therapy Treatment Form completed Mary Riveroer [place] - [facility] 05/14/2025 13:46:28 05/13/20 25 Wound completed COLEMAN LAU NP [place] - [facility] 05/13/2025 14:38:11 05/13/20 25 [facility] Therapy Treatment Form completed Moraima Moses [place] - [facility] 05/13/2025 13:30:22 05/12/20 25 [facility] Therapy Treatment Form completed Mary BERNAL - [facility] 05/12/2025 13:20:36 05/11/20 25 [facility] Therapy Treatment Form completed Moraima BERNAL - [facility] 05/11/2025 14:12:30 05/08/20 [...] Care 04/29/2025 13:00:12 Knee Replacement completed Luciana BERNAL - [facility] 04/23/2025 14:32:38 procedure on integumentary system completed Luciana BERNAL - [facility] 04/23/2025 14:33:00 cataract surgery completed Luciana BERNAL - [facility] 04/23/2025 14:33:07 amputation of toe completed Luciana BERNAL - [facility] 04/23/2025 14:33:26 Imaging Results None recorded. Procedure Notes None recorded. Medical Equipment None Reported. Allergies Allergen ID Allergen Name Allergen Category Reaction Reaction Severity Criticality Documentation Date Start Date Code Code System Note Provider Name and Address Organization Details Recorded Time 1101 ibuprofen medicatio n Not available Not available Not available 04/23/2025 5640 RxNorm Luciana servin, [place] - [facility] 14:25:04 1102 Rocephin medicatio n Not available Not available Not available 04/23/2025 9449 RxNorm Luciana servin, [place] - [facility] 14:25:10 1103 Inapsine medicatio n Not available Not available Not available 04/23/2025 12955 3 RxNorm Luciana servin, [place] - [facility] 14:25:27 1104 Avelox medicatio n Not available Not available Not available 04/23/2025 11788 6 RxNorm Luciana servin, [place] - [facility] 14:25:52 1105 metformin medicatio n other Not available low 04/23/20252023 6809 RxNorm GI issue s Luciana Noriega null, [place] - [facility] 14:26:11 1253 Product containin g angiotens in-conver ting enzyme inhibitor (product) medicatio n cough moderate Not available 06/26/2025 78892 009 SNOMED Not Available [employer] - External Data Service - prod 5 10:54:20 1254 metformin hydrochlo ride medicatio n Not available Not available Not available 06/26/2025 88112 3 RxNorm Not Available In Flow External Data Service - prod 5 10:54:20 Medications Name Sig Start Date Stop [...] Address Organization Details Last Updated DateTime 5 77 /min 16 /min 98 [degF] 96 % 96 % 81 /min 16 /min 98.1 [degF] 91 % 91 % 166/75 mm[Hg] 150/82 mm[Hg] Mary Miranda [place] - [facility] 5 14:09:25 Date Recorded Heart rate Respiratory rate Body temperature Oxygen saturation Oxygen saturation in Arterial blood by Pulse oximetry Heart rate Respiratory rate Body temperature Oxygen saturation Oxygen saturation in Arterial blood by Pulse oximetry Systolic And Diastolic Systolic And Diastolic Provider Name and Address Organization Details Last Updated DateTime 5 78 /min 16 /min 97.7 [degF] 95 % 95 % 76 /min 16 /min 96.1 [degF] 95 % 95 % 152/72 mm[Hg] 150/81 mm[Hg] Carolyn roland [place] - [facility] 5 13:20:52 Social History None recorded. Functional Status None recorded. Mental Status None recorded. Family History Nothing Reported. Medical History Condition Response Allergies/Hayfever Y Heart Problems N Coronary Artery Disease N Gout N Blood Diseases N Ear or Hearing Problems N Hyperthyroidism N Breast Cancer N Thyroid Problems N COPD Y GI Problems N Depression Y Hypothyroidism Y Lung Disease N Developmental or Behavioral Disorders N Skin Problems Y Anemia N Anxiety Disorder Y Diabetes Y Muscle, Joint, or Bone Problems N Arthritis Y Seizures/Epilepsy N AIDS/HIV N Congestive Heart Failure (CHF) N Cancer N Stroke N Diverticulitis N Asthma N Endometriosis N Bladder or Kidney Problems N Liver Disease N Heart Disease N Headaches Y Fibromyalgia N Hypertension Y Chronic Ear Infections N Osteoporosis N Kidney Disease N Gynecological HistoryNo gynecological history recorded. Obstetrics History GPAL:G 0 P 0 0 0 0 Past Encounters Encounter ID Performer Location Encounter Start Date Encounter Closed Date Diagnosis/Indication Diagnosis SNOMED-CT Code Diagnosis ICD10 Code Diagnosis IMO Codes Diagnosis Note [id number] Manfred Shelton MD Main Office [address] [place] [address] 04/23/2025 14:15:51 04/24/2025 12:51:54 [id number] Manfred Shelton MD Main Office [address] [place] [address] 04/29/2025 10:50:02 04/29/2025 15:41:17 [id number] Manfred Shelton MD Main Office [address] [place] [address] 04/30/2025 11:16:06 04/30/2025 14:19:33 [id number] Manfred Shelton MD Main Office [address] [place] [address] 05/01/2025 10:18:55 05/01/2025 13:10:41 [id number] Manfred Shelton MD Main Office [address] [place] [address] 05/04/2025 10:46:48 05/04/2025 14:18:05 [id number] Manfred Shelton MD Main Office [address] [place] [address] 05/06/2025 10:55:59 05/06/2025 11:32:38 [id number] Manfred Shelton MD Main Office [address] [place] [address] 05/06/2025 13:04:28 05/07/2025 08:30:09 [id number] Manfred Shelton MD Main Office [address] [place] [address] 05/07/2025 10:45:55 05/08/2025 10:40:32 [id number] Manfred Shelton MD Main Office [address] [place] [address] 05/08/2025 10:55:11 05/08/2025 14:31:10 [id number] Manfred Shelton MD Main Office [address] [place] [address] 05/08/2025 13:08:42 05/08/2025 14:13:22 [id number] Manfred Shelton MD Main Office [address] [place] [address] 05/11/2025 10:59:55 05/11/2025 14:43:45 Type 2 diabetes mellitus 10370717 E11.69 [id number] Manfred Shelton MD Main Office [address] [place] [address] 05/12/2025 10:58:25 05/12/2025 16:06:58 [id number] Manfred Shelton MD Main Office [address] [place] [address] 05/13/2025 10:26:11 05/13/2025 14:22:52 Type 2 diabetes mellitus 37950619 E11.69 [id number] Manfred Shelton MD Main Office [address] [place] [address] 05/13/2025 13:16:44 05/13/2025 14:39:17 [id number] Manfred Shelton MD Main Office [address] [place] [address] 05/14/2025 10:20:17 05/14/2025 16:02:14 [id number] Manfred Shelton MD Main Office [address] [place] [address] 05/15/2025 10:48:13 05/18/2025 08:48:44 Health Concerns Section Related Observation LastModified by Organization Detai ls LastModified Time None Recorded Concern Status LastModified by Organization Details LastModified Time None Recorded Payers Encounter Date Sequence Insurance Name Policy Number Policy Gonzales Covered Member ID Gonzales Member ID Guarantor Name 05/15/2025 2 [employer] Seema Delacruz [id number] Seema Delacruz 05/15/2025 1 [employer] Seema Delacruz [id number] Seema Delacruz OBGyn Episode No OBEpisode recorded.
--- OUTSIDE RECORDS SUMMARY | 2025-07-06 16:01 | XMS_ITS | Continuity of Care Document ---
Author Organization [place] [facility], Main Office Address [address] [place] [address] Care Team Providers Care Accounting Reconciliation Clerk Name Role Phone STEPHY YUSUF Primary Care [...] Modified By Organization Details Last Modified Time 06/22/2025 1810 BACKGROUND: Seema Delacruz is a 55 y.o. [...] E11.621 ___ ___ Session Notes: Today's Date 22Jun2025 HBOT session 35 of 40 Next HBOT [id number] 30Jul - Patient cleared for 1st HBOT [...] slightly red, but she was asymptomatic. [place].Tanner HUTTONN 01Aug - Patient deemed safe for HBOT today. VS stable. Patient completed full session with no problem. [place].Jessica Lau HAND QUILTER 04Aug - Patient deemed safe for HBOT today. VS stable. Patient completed full session with no problem. Antoinette Lau HAND QUILTER 05Aug - patient out for another appt. [...] antibiotics for an upper respiratory infection. Nicolasa HAND QUILTER 07Aug- Patient cleared for HBOT today. VS stable. PAtient had little trouble reaching pressure today, but had to come out of chamber early due to needing to use restroom. She managed to do 4 segs-118 minutes. [place].Tanner HAND QUILTER 08Aug - Patient cleared for HBOT today. VS stable. Patient completed full session with no problem. Antoinette Lau HAND QUILTER 11Aug - Patient cleared for HBOT today. [...] full session with no problem. Antoinette Lau HAND QUILTER 13Aug - Patient cleared for HBOT today. VS stable. Patient completed full session with no problem. Wound care to follow treatment today. Antoinette Lau HAND QUILTER 14Aug - Patient cleared for HBOT today. VS stable. Patient completed full session with no problem. Antoinette Lau HAND QUILTER 15Aug - Patient cleared for HBOT today. [...] attempt to try again on Sunday. Nicolasa HAND QUILTER 18Aug - Patient cleared for HBOT today. VS stable. Patient completed full session with no problem. Antoinette Lau HAND QUILTER 19Aug - Patient deemed safe for HBOT today. VS stable. FSBS within range. Patient completed full session with no problem. Antoinette Lau HAND QUILTER 2015Aug - Patient cleared for HBOT today. [...] date andcompleted full session free of problem. [facility] 29Aug - Cleared for HBOT his date [...] above 80 and was discharged with 92. JMEstefania WATERS 08Sep - Patient deemed safe for HBOT today. VS stable. Patient completed full session with no problem. [place].Jessica Lau HAND QUILTER 10Sep - Patient deemed safe for HBOT today. VS stable. Patient completed full session with no problem. IsraelIlsa Lau HAND QUILTER 11Sep - Patient cleared for HBOT today. VS stable. Patient completed full session with no problem. [place].Jessica Lau HAND QUILTER 12Sep - Found safe for HBOT this [...] full session with no problem. Antoinette Lau HAND QUILTER Not available 06/22/2025 14:32:21 Reason for Referral None Reported. Problems Name Problem SNOMED Code Status Onset Date Resolution Date Notes Provider Name and Address Organization Details Recorded Time Upper respiratory infection [id number] Active 2024 COLEMAN LAU NP null, [place] - [facility] 12:18:40 Episodic migraine 4802362260210 06 Active 2024 COLEMAN LAU NP null, [place] - [facility] 12:34:01 Type 2 diabetes mellitus 91879886 Active 2024 COLEMAN LAU NP null, [place] - [facility] 15:27:12 Refractory migraine with aura 526731607 Active 2024 COLEMAN LAU NP null, [place] - [facility] 10:56:52 Problem Notes None recorded. Procedures Surgical History Date Name Laterality Status Provider Name and Address Organization Details Recorded Time 07/06/20 [facility] Therapy Treatment Form completed [facility] - [facility] 07/06/2025 13:06:29 07/03/20 25 [facility] Therapy Treatment Form completed Paula Licea [place] - [facility] 07/03/2025 12:47:29 07/02/20 25 [facility] Therapy Treatment Form completed Paulajuancarlos Licea [place] - [facility] 07/02/2025 13:06:39 07/01/20 25 [facility] Therapy Treatment Form completed Paula Vinayak [place] - [facility] 07/01/2025 13:05:37 06/30/20 25 [facility] Therapy Treatment Form completed COLEMAN LAU NP [place] - [facility] 06/30/2025 13:46:12 06/29/20 25 [facility] Therapy Treatment Form completed [facility] - [facility] 06/29/2025 13:24:58 06/26/20 25 [facility] Therapy Treatment Form completed Manfred Shelton MD [place] - [facility] 06/26/2025 16:57:55 06/25/20 25 [facility] Therapy Treatment Form completed [facility] - [facility] 06/25/2025 12:47:07 06/24/20 25 [facility] Therapy Treatment Form completed [facility] - [facility] 06/24/2025 12:40:20 06/23/20 25 [facility] Therapy Treatment Form completed [facility] 06/23/2025 12:39:50 06/22/20 25 [facility] Therapy Treatment Form completed Carolyn sharp [place] - [facility] 06/22/2025 12:49:55 06/19/20 25 [facility] Therapy Treatment Form completed Manfred Shelton [place] [facility] 06/19/2025 14:13:24 06/18/20 25 [facility] Therapy Treatment Form completed COLEMAN LAU NP [place] - [facility] 06/18/2025 13:17:34 06/17/20 25 [facility] Therapy Treatment Form completed [facility] - [facility] 06/17/2025 12:29:15 06/16/20 25 [facility] Therapy Treatment Form completed [facility] - [facility] 06/16/2025 12:45:53 06/15/20 25 [facility] Therapy Treatment Form completed [facility] - [facility] 06/15/2025 12:47:07 06/12/20 25 [facility] Therapy Treatment Form completed Manfred Shelton MD [place] - [facility] 06/12/2025 14:54:52 06/11/20 25 [facility] Therapy Treatment Form completed [facility] - [facility] 06/11/2025 13:02:39 06/10/20 25 [facility] Therapy Treatment Form completed [facility] - [facility] 06/10/2025 12:50:18 06/08/20 25 [facility] Therapy Treatment Form completed [facility] - [facility] 06/08/2025 12:56:07 06/05/20 25 [facility] Therapy Treatment Form completed Eveliapatricia Winters [place] - [facility] 06/05/2025 14:28:16 06/04/20 25 Wound completed COLEMAN LAU NP [place] - [facility] 06/04/2025 14:24:29 06/04/20 25 [facility] Therapy Treatment Form completed COLEMAN LUA NP [place] [facility] 06/04/2025 13:56:49 06/03/20 25 [facility] Therapy Treatment Form completed Evelia Winters [place] - [facility] 06/03/2025 14:11:11 06/02/20 25 [facility] Therapy Treatment Form completed Carolyn [facility] - [facility] 06/02/2025 13:09:37 05/29/20 25 [facility] Therapy Treatment Form completed [facility] - [facility] 05/29/2025 12:25:31 05/28/20 25 [facility] Therapy Treatment Form completed Carolyn roland [place] - [facility] 05/28/2025 13:02:44 05/27/20 25 Wound completed COLEMAN LAU NP [place] [facility] 05/27/2025 13:18:22 05/27/20 25 [facility] Therapy Treatment Form completed Carolyn roland [place] [facility] 05/27/2025 12:50:01 05/26/20 25 Nurse Note completed Luciana Noriega [place] [facility] 05/26/2025 16:40:42 05/26/20 25 [facility] Therapy Treatment Form completed Carolyn roland [place] [facility] 05/26/2025 12:27:56 05/25/20 25 [facility] Therapy Treatment Form completed Carolyn roland [place] [facility] 05/25/2025 13:12:32 05/22/20 25 [facility] Therapy Treatment Form completed Carolyn roland [place] [facility] 05/22/2025 12:33:28 05/21/20 25 [facility] Therapy Treatment Form completed Carolyn roland [place] [facility] 05/21/2025 12:47:49 05/20/20 25 Wound completed COLEMAN LAU NP [place] [facility] 05/20/2025 13:22:44 05/20/20 25 [facility] Therapy Treatment Form completed Moraimafélix Moses [place] - [facility] 05/20/2025 12:52:27 05/19/20 25 [facility] Therapy Treatment Form completed Evelia Winters [place] [facility] 05/19/2025 13:53:26 05/18/20 25 [facility] Therapy Treatment Form completed Carolyn roland [place] [facility] 05/18/2025 13:22:00 05/15/20 25 [facility] Therapy Treatment Form completed Mary Riveroer [place] [facility] 05/15/2025 14:10:27 05/15/20 25 [facility] Additional Air Breaks Therapy Treatment Form completed Mary Ruben [place] [facility] 05/15/2025 14:17:22 [...] Care Therapy Treatment Form completed Carolyn luan [place] [facility] 05/04/2025 12:48:46 [...] available Not available 04/23/2025 5640 RxNorm Luciana Noriega null, [place] - [facility] 14:25:04 1102 Rocephin medicatio n Not available Not available Not available 04/23/2025 9449 RxNorm Luciana Noriega null, [place] [facility] 14:25:10 1103 Inapsine medicatio n Not available Not available Not available 04/23/2025 40614 3 RxNorm Luciana servin, [place] - [facility] 14:25:27 1104 Avelox medicatio n Not available Not available Not available 04/23/2025 34676 6 RxNorm Luciana Noriega null, [place] - [facility] 5 14:25:52 1105 metformin medicatio n other Not available low 04/23/20252023 6809 RxNorm GI issue s Luciana Noriega null, [place] - [facility] 14:26:11 1253 Product containin g angiotens in-conver ting enzyme inhibitor (product) medicatio n cough moderate Not available 06/26/2025 39347 009 SNOMED Not Available Ruth Kunstadter – [employer] - prod 5 10:54:20 1254 metformin hydrochlo ride medicatio n Not available Not available Not available 06/26/2025 96213 3 RxNorm Not Available [employer] - prod 5 10:54:20 [...] Address Organization Details Last Updated DateTime 5 81 /min 16 /min 98.2 [degF] 91 % 91 % 72 /min 16 /min 98.1 [degF] 92 % 92 % 165/76 mm[Hg] 140/75 mm[Hg] [facility] - [facility] 5 12:50:12 Date Recorded Heart rate Respiratory rate Body temperature Oxygen saturation Oxygen saturation in Arterial blood by Pulse oximetry Heart rate Respiratory rate Body temperature Oxygen saturation Oxygen saturation in Arterial blood by Pulse oximetry Systolic And Diastolic Systolic And Diastolic Provider Name and Address Organization Details Last Updated DateTime 5 84 /min 16 /min 98.4 [degF] 95 % 95 % 74 /min 16 /min 98.1 [degF] 93 % 93 % 169/78 mm[Hg] 138/76 mm[Hg] [facility] - [facility] 5 12:40:08 Social History None recorded. Functional Status None recorded. Mental Status None recorded. Family History Nothing Reported. Medical History Condition Response Allergies/Hayfever Y Heart Problems N Coronary Artery Disease N Gout N Blood Diseases N Hyperthyroidism N Ear or Hearing Problems N Breast Cancer N Thyroid Problems N Lung Disease N Hypothyroidism Y GI Problems N Depression Y COPD Y Developmental or Behavioral Disorders N Skin Problems Y Anemia N Diabetes Y Anxiety Disorder Y Muscle, Joint, or Bone Problems N Seizures/Epilepsy N Arthritis Y AIDS/HIV N Congestive Heart Failure (CHF) N [...] ICD10 Code Diagnosis IMO Codes Diagnosis Note [id number] Manfred Shelton MD Main Office [address] [place] [address] 05/22/2025 10:05:00 05/22/2025 14:31:52 [id number] COLEMAN HOPKINSWOOD, GIZZARD PULLER Main Office [address] [place] [address] 05/25/2025 10:54:17 05/25/2025 14:23:41 5071 COLEMAN HOPKINSWOOD, GIZZARD PULLER Main Office [address] [place] [address] 05/26/2025 10:04:52 05/26/2025 13:22:24 5083 COLEMAN HOPKINSWOOD, GIZZARD PULLER Main Office [address] [place] [address] 05/26/2025 16:38:48 05/26/2025 16:40:45 [id number] COLEMAN HOPKINSWOOD, GIZZARD PULLER Main Office [address] [place] [address] 05/27/2025 10:11:43 05/27/2025 13:22:20 5093 COLEMAN LAU, GIZZARD PULLER Main Office [address] [place] [address] 05/27/2025 13:11:38 05/27/2025 13:19:10 [id number] Manfred Shelton MD Main Office [address] [place] [address] 05/28/2025 10:14:13 05/29/2025 08:47:13 [id number] Manfred Shelton MD Main Office [address] [place] [address] 05/29/2025 10:04:58 05/29/2025 17:43:48 [id number] Manfred Shelton MD Main Office [address] [place] [address] 06/02/2025 10:25:50 06/02/2025 14:14:27 [id number] Manfred Shelton MD Main Office [address] [place] [address] 06/03/2025 10:16:52 06/03/2025 14:45:20 [id number] Manfred Shelton MD Main Office [address] [place] [address] 06/04/2025 10:31:23 06/04/2025 13:58:07 [id number] Manfred Shelton MD Main Office [address] [place] [address] 06/04/2025 14:13:52 06/04/2025 14:25:08 [id number] Manfred Shelton MD Main Office [address] [place] [address] 06/05/2025 10:55:07 06/05/2025 16:50:44 [id number] Manfred Shelton MD Main Office [address] [place] [address] 06/08/2025 10:25:37 06/08/2025 14:39:12 [id number] Manfred Shelton MD Main Office [address] [place] [address] 06/10/2025 10:19:13 06/10/2025 13:21:20 [id number] Manfred Shelton MD Main Office [address] [place] [address] 06/11/2025 10:35:04 06/11/2025 14:11:07 [id number] Manfred Shelton MD Main Office [address] [place] [address] 06/12/2025 10:59:45 06/12/2025 14:56:49 [id number] Manfred Shelton MD Main Office [address] [place] [address] 06/15/2025 10:50:33 06/15/2025 13:14:21 [id number] Manfred Shelton MD Main Office [address] [place] [address] 06/16/2025 10:14:56 06/16/2025 13:52:36 [id number] Manfred Shelton MD Main Office [address] [place] [address] 06/17/2025 10:28:52 06/17/2025 13:18:56 [id number] Mafnred Shelton MD Main Office [address] [place] [address] 06/18/2025 10:16:09 06/18/2025 13:16:04 [id number] Manfred Shelton MD Main Office [address] [place] [address] 06/19/2025 10:44:19 06/19/2025 14:15:39 [id number] COLEMAN LAU NP Main Office [address] [place] [address] 06/22/2025 10:36:06 06/22/2025 14:32:28 Health Concerns Section Related Observation LastModified by Organization Detai ls LastModified Time None Recorded Concern Status LastModified by Organization Details LastModified Time None Recorded Payers Encounter Date Sequence Insurance Name Policy Number Policy Gonzales Covered Member ID Gonzales Member ID Guarantor Name 06/22/2025 2 [employer] [facility] Seema Delacruz [id number] Seema Delacruz 06/22/2025 1 [employer] Seema Delacruz [id number] Seema Delacruz OBGyn Episode No OBEpisode recorded.
--- OUTSIDE RECORDS SUMMARY | 2025-07-06 16:01 | XMS_ITS | Clinical Summary ---
Author Organization [facility] ([place], [place], [place], [place]) Address [address] [place] [id number] Care Team Providers Care Numerical Tool Programmer Name Role Phone Unavailable Primary Care Provider [...]
--- OUTSIDE RECORDS SUMMARY | 2025-07-06 16:01 | XMS_ITS | Continuity of Care Document ---
Author Organization [place] [facility], Main Office Address [address] [place] [address] Care Team Providers Care Event Planning Intern Name Role Phone STEPHY YUSUF Primary Care Provider [phone] Assessment No assessment recorded. Plan of Treatment [...] Care Not available Not available Not available [facility] julio Therap [id number] 2024 10:30A M [facility] Not available Not available Not available [id number] 2024 10:30A M [facility] Not available Not available Not available [id number] 2024 10:30A M [facility] Not available Not available Not [id number] 2024 10:30A M [facility] Not available Not available Not available [facility] The[facility] y-[id number] 2024 10:30A M [facility] Not available Not available Not available Lab None record ed. Referral None record ed. Procedures None record ed. Surgeries None record ed. Imaging None record ed. Medication Orders None record ed. Patient TargetsNo targets recorded. Patient InstructionsNo instructions recorded. Reason for Referral None Reported. Problems Name Problem SNOMED Code Status Onset Date Resolution Date Notes Provider Name and Address Organization Details Recorded Time Upper respiratory infection 63135262 Active 2024 COLEMAN MARTELL NP null, [place] - [facility] 12:18:40 Episodic migraine 8993467269542 Active 2024 COLEMAN MARTELL NP null, [place] - [facility] 12:34:01 Type 2 diabetes mellitus 82531752 Active 2024 COLEMAN MARTELL NP null, [place] [facility] 15:27:12 Refractory migraine with aura 562862851 Active 2024 COLEMAN MARTELL NP null, [place] [facility] 10:56:52 Problem Notes None recorded. Procedures Surgical History Date Name Laterality Status Provider Name and Address Organization Details Recorded Time 07/06/20 25 [facility] Therapy Treatment Form completed Carolyn roland [place] - [facility] 07/06/2025 13:06:29 07/03/20 25 [facility] Therapy Treatment Form completed Paula Licea [place] - [facility] 07/03/2025 12:47:29 07/02/20 25 [facility] Therapy Treatment Form completed Paula Licea [place] [facility] 07/02/2025 13:06:39 07/01/20 25 [facility] Therapy Treatment Form completed Paula Licea [place] [facility] 07/01/2025 13:05:37 06/30/20 25 [facility] Therapy Treatment Form completed COLEMAN MARTELL NP [place] - [facility] 06/30/2025 13:46:12 06/29/20 25 [facility] Therapy Treatment Form completed [facility] - [facility] 06/29/2025 13:24:58 06/26/20 25 [facility] Therapy Treatment Form completed Manfred Shelton [place] - [facility] 06/26/2025 16:57:55 06/25/20 25 [facility] Therapy Treatment Form completed [facility] - [facility] 06/25/2025 12:47:07 06/24/20 25 [facility] Therapy Treatment Form completed [facility] - [facility] 06/24/2025 12:40:20 06/23/20 25 [facility] Therapy Treatment Form completed [facility] - [facility] 06/23/2025 12:39:50 06/22/20 25 [facility] Therapy Treatment Form completed [facility] - [facility] 06/22/2025 12:49:55 06/19/20 25 [facility] Therapy Treatment Form completed Manfred Shelton [place] [facility] 06/19/2025 14:13:24 06/18/20 25 [facility] Therapy Treatment Form completed COLEMAN MARTELL NP [place] [facility] 06/18/2025 13:17:34 06/17/20 25 [facility] Therapy Treatment Form completed [facility] - [facility] 06/17/2025 12:29:15 06/16/20 25 [facility] Therapy Treatment Form completed [facility] - [facility] 06/16/2025 12:45:53 06/15/20 25 [facility] Therapy Treatment Form completed [facility] - [facility] 06/15/2025 12:47:07 06/12/20 25 [facility] Therapy Treatment Form completed Manfred Shelton MD [facility] 06/12/2025 14:54:52 06/11/20 25 [facility] Therapy Treatment Form completed [facility] 06/11/2025 13:02:39 06/10/20 25 [facility] Therapy Treatment Form completed [facility] 06/10/2025 12:50:18 06/08/20 25 [facility] Therapy Treatment Form completed Carolyn roland [place] - [facility] 06/08/2025 12:56:07 06/05/20 25 [facility] Therapy Treatment Form completed Evelia Salashiram [place] [facility] 06/05/2025 14:28:16 06/04/20 25 Wound completed COLEMAN MARTELL NP [place] - [facility] 06/04/2025 14:24:29 06/04/20 25 [facility] Therapy Treatment Form completed COLEMAN MARTELL NP [place] [facility] 06/04/2025 13:56:49 06/03/20 25 [facility] Therapy Treatment Form completed Evelia Winters [place] - [facility] 06/03/2025 14:11:11 06/02/20 25 [facility] Therapy Treatment Form completed [facility] [place] - [facility] 06/02/2025 13:09:37 05/29/20 25 [facility] Therapy Treatment Form completed [facility] [place] [facility] 05/29/2025 12:25:31 05/28/20 25 [facility] Therapy Treatment Form completed [facility] [place] [facility] 05/28/2025 13:02:44 05/27/20 25 Wound completed COLEMAN MARTELL NP [place] [facility] 05/27/2025 13:18:22 05/27/20 25 [facility] Therapy Treatment Form completed [facility] [place] [facility] 05/27/2025 12:50:01 05/26/20 25 Nurse Note completed Luciana Noriega [place] [facility] 05/26/2025 16:40:42 05/26/20 25 [facility] Therapy Treatment Form completed [facility] [place] [facility] 05/26/2025 12:27:56 05/25/20 25 [facility] Therapy Treatment Form completed [facility] [place] [facility] 05/25/2025 13:12:32 05/22/20 25 [facility] Therapy Treatment Form completed [facility] [place] [facility] 05/22/2025 12:33:28 05/21/20 25 [facility] Therapy Treatment Form completed [facility] [place] [facility] 05/21/2025 12:47:49 05/20/20 25 Wound completed COLEMAN MARTELL NP [place] [facility] 05/20/2025 13:22:44 05/20/20 25 [facility] Therapy Treatment Form completed Moraima [place] - [facility] 05/20/2025 12:52:27 05/19/20 25 [facility] Therapy Treatment Form completed Evelia Winters [place] [facility] 05/19/2025 13:53:26 05/18/20 25 [facility] Therapy Treatment Form completed Carolyn luan [place] [facility] 05/18/2025 13:22:00 [...] 05/14/2025 13:46:28 05/13/20 25 Wound completed COLEMAN MARTELL NP [place] [facility] 05/13/2025 14:38:11 05/13/20 25 [facility] Therapy Treatment Form completed Moraima [place] - [facility] 05/13/2025 13:30:22 05/12/20 25 [facility] Therapy Treatment Form completed Mary [facility] - [facility] 05/12/2025 13:20:36 05/11/20 25 [facility] Therapy Treatment Form completed Moraima [facility] - [facility] 05/11/2025 14:12:30 05/08/20 25 Wound completed COLEMAN MARTELL NP [place] [facility] 05/08/2025 14:12:38 05/08/20 25 [facility] Therapy Treatment Form completed Mary [facility]ER[facility] - [facility] 05/08/2025 13:37:30 05/07/20 25 [facility] Therapy Treatment Form completed Mary [facility] - [facility] 05/07/2025 13:01:51 05/06/20 25 Wound completed COLEMAN MARTELL NP [place] [facility] 05/07/2025 08:29:18 05/06/20 25 [facility] Therapy Treatment Form completed Mary BERNAL - [facility] 05/06/2025 12:30:26 05/04/20 25 [facility] Therapy Treatment Form completed Carolyn roland [place] [facility] 05/04/2025 12:48:46 05/01/20 25 [facility] Therapy Treatment Form completed Mary Miranda [place] [facility] 05/01/2025 12:20:36 04/30/20 25 [facility] Therapy Treatment Form completed COLEMAN MARTELL NP [place] [facility] 04/30/2025 [...] Not available Not available Not available 04/23/2025 70657 3 RxNorm Luciana servin, [place] - [facility] 14:25:27 1104 Avelox medicatio n Not available Not available Not available 04/23/2025 90774 6 RxNorm Luciana servin, [place] - [facility] 14:25:52 1105 metformin medicatio n other Not available low 04/23/20252023 6809 RxNorm GI issue s Luciana Noriega null, [place] - [facility] 14:26:11 1253 Product containin g angiotens in-conver ting enzyme inhibitor (product) medicatio n cough moderate Not available 06/26/2025 70897 009 SNOMED Not Available [place] - [employer] - prod 10:54:20 1254 metformin hydrochlo ride medicatio n Not available Not available Not available 06/26/2025 53430 3 RxNorm Not Available [place] - [employer] - prod 10:54:20 [...] Not Available Silvadene active Not Available Not Ohdan ilable Not Available Bactrim active Not Available [...] Address Organization Details Last Updated DateTime 5 97 /min 16 /min 98.1 [degF] 87 % 87 % 70 /min 16 /min 97.9 [degF] 94 % 94 % 155/69 mm[Hg] 137/79 mm[Hg] [facility] - [facility] 5 12:33:17 Date Recorded Heart rate Respiratory rate Body temperature Oxygen saturation Oxygen saturation in Arterial blood by Pulse oximetry Heart rate Respiratory rate Body temperature Oxygen saturation Oxygen saturation in Arterial blood by Pulse oximetry Systolic And Diastolic Systolic And Diastolic Provider Name and Address Organization Details Last Updated DateTime 5 77 /min 16 /min 98.6 [degF] 92 % 92 % 73 /min 16 /min 97.9 [degF] 95 % 95 % 157/79 mm[Hg] 137/75 mm[Hg] [facility] - [facility] 5 13:12:49 Date Recorded Heart rate Respiratory rate Body temperature Oxygen saturation Oxygen saturation in Arterial blood by Pulse oximetry Heart rate Respiratory rate Body temperature Oxygen saturation Oxygen saturation in Arterial blood by Pulse oximetry Systolic And Diastolic Systolic And Diastolic Provider Name and Address Organization Details Last Updated DateTime 74 /min 16 /min 98.2 [degF] 93 % 93 % 69 /min 16 /min 97.5 [degF] 93 % 93 % 156/75 mm[Hg] 118/72 mm[Hg] Carolyn luan [place] - [facility] 12:28:13 Social History None recorded. Functional Status None [...] [id number] Manfred Shelton MD Main Office [address] [place] [address] 04/23/2025 14:15:51 04/24/2025 12:51:54 [id number] Manfred Shelton MD Main Office [address] [place] [address] 04/29/2025 10:50:02 04/29/2025 15:41:17 [id number] Manfred Shelton MD Main Office [address] [place] [address] 04/30/2025 11:16:06 04/30/2025 14:19:33 [id number] Manfred Shelton MD Main Office [address] [place] [address] 05/01/2025 10:18:55 05/01/2025 13:10:41 [id number] Manfred Shelton MD Main Office [address] [place] [address] 05/04/2025 10:46:48 05/04/2025 14:18:05 [id number] Manfred Shelton MD Main Office [address] [place] [address] 05/06/2025 10:55:59 05/06/2025 11:32:38 [id number] Manfred Shelton MD Main Office [address] [place] [address] 05/06/2025 13:04:28 05/07/2025 08:30:09 [id number] Manfred Shelton MD Main Office [address] [place] [address] 05/07/2025 10:45:55 05/08/2025 10:40:32 [id number] Manfred Shelton MD Main Office [address] [place] [address] 05/08/2025 10:55:11 05/08/2025 14:31:10 [id number] Manfred Shelton MD Main Office [address] [place] [address] 05/08/2025 13:08:42 05/08/2025 14:13:22 [id number] Manfred Shelton MD Main Office [address] [place] [address] 05/11/2025 10:59:55 05/11/2025 14:43:45 Type 2 diabetes mellitus 96536044 E11.69 [id number] Manfred Shelton MD Main Office [address] [place] [address] 05/12/2025 10:58:25 05/12/2025 16:06:58 [id number] Manfred Shelton MD Main Office [address] [place] [address] 05/13/2025 10:26:11 05/13/2025 14:22:52 Type 2 diabetes mellitus 88912245 E11.69 [id number] Manfred Shelton MD Main Office [address] [place] [address] 05/13/2025 13:16:44 05/13/2025 14:39:17 [id number] Manfred Shelton MD Main Office [address] [place] [address] 05/14/2025 10:20:17 05/14/2025 16:02:14 [id number] Manfred Shelton MD Main Office [address] [place] [address] 05/15/2025 10:48:13 05/18/2025 08:48:44 [id number] Manfred Shelton MD Main Office [address] [place] [address] 05/18/2025 10:59:56 05/18/2025 15:48:37 Type 2 diabetes mellitus 25488017 E11.69 [id number] Manfred Shelton MD Main Office [address] [place] [address] 05/19/2025 11:07:27 05/19/2025 14:52:31 [id number] Manfred Shelton MD Main Office [address] [place] [address] 05/20/2025 11:36:16 05/20/2025 13:20:26 [id number] Manfred Shelton MD Main Office [address] [place] [address] 05/20/2025 12:28:38 05/20/2025 13:24:07 [id number] Manfred Shelton MD Main Office [address] [place] [address] 05/21/2025 10:14:02 05/22/2025 08:40:53 [id number] Manfred Shelton MD Main Office [address] [place] [address] 05/22/2025 10:05:00 05/22/2025 14:31:52 Health Concerns Section Related Observation LastModified by Organization Detai ls LastModified Time None Recorded Concern Status LastModified by Organization Details LastModified Time None Recorded Payers Encounter Date Sequence Insurance Name Policy Number Policy Gonzales Covered Member ID Gonzales Member ID Guarantor Name 05/22/2025 2 [employer] [facility] Seema Delacruz [id number] Seema Delacruz 05/22/2025 1 [employer] Seema Delacruz [id number] Seema Delacruz OBGyn Episode No OBEpisode recorded.
--- OUTSIDE RECORDS SUMMARY | 2025-07-06 16:01 | XMS_ITS | Continuity of Care Document ---
Author Organization [place] - [facility], Main Office Address [address] [place] [address] Care Team Providers Care Wide Load Escort Name Role Phone STEPHY YUSUF Primary Care [...] Modified By Organization Details Last Modified Time 06/03/2025 5149 BACKGROUND: Seema Delacruz is a 55 y.o. [...] E11.621 ___ ___ Session Notes: Today's Date 03Jun2025 HBOT session 40 Next HBOT [id number] 30Jul - Patient cleared for 1st HBOT [...] full session with no problem. [place].Jessica Lau DIRECTOR MEDICAL ECONOMICS 04Aug - Patient deemed safe for HBOT [...] antibiotics for an upper respiratory infection. Nicolasa DIRECTOR MEDICAL ECONOMICS 07Aug- Patient cleared for HBOT today. VS stable. PAtient had little trouble reaching pressure today, but had to come out of chamber early due to needing to use restroom. She managed to do 4 segs-118 minutes. [place].Tanner DIRECTOR MEDICAL ECONOMICS 08Aug - Patient cleared for HBOT today. VS stable. Patient completed full session with no problem. Antoinette Lau DIRECTOR MEDICAL ECONOMICS 11Aug - Patient cleared for HBOT today. [...] full session with no problem. Antoinette Lau DIRECTOR MEDICAL ECONOMICS 13Aug - Patient cleared for HBOT today. VS stable. Patient completed full session with no problem. Wound care to follow treatment today. Antoinette Lau DIRECTOR MEDICAL ECONOMICS 14Aug - Patient cleared for HBOT today. VS stable. Patient completed full session with no problem. Antoinette Lau DIRECTOR MEDICAL ECONOMICS 15Aug - Patient cleared for HBOT today. [...] attempt to try again on Sunday. Nicolasa DIRECTOR MEDICAL ECONOMICS 18Aug - Patient cleared for HBOT today. VS stable. Patient completed full session with no problem. Antoinette Lau DIRECTOR MEDICAL ECONOMICS 19Aug - Patient deemed safe for HBOT today. VS stable. FSBS within range. Patient completed full session with no problem. Antoinette Lau DIRECTOR MEDICAL ECONOMICS 2015Aug - Patient cleared for HBOT today. [...] significant anxiety. Dressing change today per nursing. [facility] 25Aug - Patient deemed safe for HBOT [...] date andcompleted full session free of problem. [facility] 29Aug - Cleared for HBOT his date and completed full session free of problem. Of note, this patient continues to smoke tobacco cigarettes. [facility] 02Sep - Patient deemed safe for HBOT today. VS stable. Patient completed full session with no problem. Antoinette Lau APRN 03Sep - Patient deemed safe for HBOT today. VS stable. Patient completed full session with no problem. Antoinette Lau APRN Not available 06/03/2025 14:45:04 Reason for Referral None Reported. Problems Name Problem SNOMED Code Status Onset Date Resolution Date Notes Provider Name and Address Organization Details Recorded Time Upper respiratory infection 56176617 Active 2024 ABDOULAYE HAQ [place] - [facility] 12:18:40 Episodic migraine 9544178841611 06 Active 2024 ABDOULAYE HAQ [place] - [facility] 12:34:01 Type 2 diabetes mellitus 10905377 Active 2024 COLEMAN LAU NP malathi, [place] - [facility] 15:27:12 Refractory migraine with aura 991425080 Active 2024 COLEMAN LAU NP malathi, [place] - [facility] 10:56:52 Problem Notes None recorded. Procedures Surgical History Date Name Laterality Status Provider Name and Address Organization Details Recorded Time 07/06/20 [facility] Therapy Treatment Form completed Carolyn roland [place] - [facility] 07/06/2025 13:06:29 07/03/20 [facility] Therapy Treatment Form completed Paula [place]ER[place] - [facility] 07/03/2025 12:47:29 07/02/20 [facility] Therapy Treatment Form completed Paula Licea [place] - [facility] 07/02/2025 13:06:39 07/01/20 25 [facility] Therapy Treatment Form completed Paula BERNAL - [facility] 07/01/2025 13:05:37 06/30/20 25 [facility] Therapy Treatment Form completed COLEMAN LAU NP [place] - [facility] 06/30/2025 13:46:12 06/29/20 25 [facility] Therapy Treatment Form completed Carolyn BERNAL - [facility] 06/29/2025 13:24:58 06/26/20 25 [facility] Therapy Treatment Form completed Manfred Shelton MD [place] - [facility] 06/26/2025 16:57:55 06/25/20 [facility] Therapy Treatment Form completed Carolyn luan [place] - [facility] 06/25/2025 12:47:07 06/24/20 25 [facility] Therapy Treatment Form completed Carolyn luan [place] - [facility] 06/24/2025 12:40:20 06/23/20 25 [facility] Therapy Treatment Form completed Carolyn BERNAL - [facility] 06/23/2025 12:39:50 06/22/20 25 [facility] Therapy Treatment Form completed Carolyn luan [place] - [facility] 06/22/2025 12:49:55 06/19/20 25 [facility] Therapy Treatment Form completed Manfred Shelton MD [facility] 06/19/2025 14:13:24 06/18/20 25 [facility] Therapy Treatment Form completed COLEMAN LAU NP [place] - [facility] 06/18/2025 13:17:34 06/17/20 25 [facility] Therapy Treatment Form completed [facility] - [facility] 06/17/2025 12:29:15 06/16/20 25 [facility] Therapy Treatment Form completed [facility] - [facility] 06/16/2025 12:45:53 06/15/20 25 [facility] Therapy Treatment Form completed [facility] - [facility] 06/15/2025 12:47:07 06/12/20 25 [facility] Therapy Treatment Form completed Manfred Shelton MD [place] - [facility] 06/12/2025 14:54:52 06/11/20 25 [facility] Therapy Treatment Form completed [facility] - [facility] 06/11/2025 13:02:39 06/10/20 25 [facility] Therapy Treatment Form completed [facility] - [facility] 06/10/2025 12:50:18 06/08/20 25 [facility] Therapy Treatment Form completed [facility] - [facility] 06/08/2025 12:56:07 06/05/20 25 [facility] Therapy Treatment Form completed Evelia Winters [place] - [facility] 06/05/2025 14:28:16 06/04/20 25 Wound completed COLEMAN LAU NP [place] - [facility] 06/04/2025 14:24:29 06/04/20 25 [facility] Therapy Treatment Form completed COLEMAN LAU NP [place] - [facility] 06/04/2025 13:56:49 06/03/20 25 [facility] Therapy Treatment Form completed Evelia Winters [place] - [facility] 06/03/2025 14:11:11 06/02/20 25 [facility] Therapy Treatment Form completed [facility] - [facility] 06/02/2025 13:09:37 05/29/20 25 [facility] Therapy Treatment Form completed [facility] - [facility] 05/29/2025 12:25:31 05/28/20 25 [facility] Therapy Treatment Form completed [facility] - [facility] 05/28/2025 13:02:44 05/27/20 [...] Care Therapy Treatment Form completed Moraima Johnsons [place] - [facility] 05/20/2025 12:52:27 05/19/20 25 [facility] Therapy Treatment Form completed Evelia Winters [place] - [facility] 05/19/2025 13:53:26 05/18/20 25 [facility] Therapy Treatment Form completed Carolyn BERNAL - [facility] 05/18/2025 13:22:00 05/15/20 25 [facility] Therapy Treatment Form completed Mary Ruben [place] - [facility] 05/15/2025 14:10:27 05/15/20 25 [facility] Additional Air Breaks Therapy Treatment Form completed Mary Ruben [place] - [facility] 05/15/2025 14:17:22 05/14/20 25 [facility] Therapy Treatment Form completed Mary Ruben [place] - [facility] 05/14/2025 13:46:28 05/13/20 25 Wound completed COLEMAN LAU NP [place] - [facility] 05/13/2025 14:38:11 05/13/20 25 [facility] Therapy Treatment Form completed Moraima Johnsons [place] - [facility] 05/13/2025 13:30:22 05/12/20 25 [facility] Therapy Treatment Form completed Crystal Ruben [place] - [facility] 05/12/2025 13:20:36 [...] Carolyn luan [place] - [facility] 05/04/2025 12:48:46 05/01/20 [...] Luciana servin, [place] - [facility] 5 14:25:10 1103 Inapsine medicatio n Not available Not available Not available 04/23/2025 05070 3 RxNorm Luciana servin, [place] - [facility] 5 14:25:27 1104 Avelox medicatio n Not available Not available Not available 04/23/2025 43731 6 RxNorm Luciana servin, [place] - [facility] 14:25:52 1105 metformin medicatio n other Not available [facility] 04/23/20252023 6809 RxNorm ALEKSANDRA issue s Luciana servin, [place] - [facility] 14:26:11 1253 Product containin g angiotens in-conver ting enzyme inhibitor (product) medicatio n cough moderate Not available 06/26/2025 91944 009 SNOMED Not Available [employer]isha - [employer] - prod 5 10:54:20 1254 metformin hydrochlo ride medicatio n Not available Not available Not available 06/26/2025 98770 3 RxNorm Not Available [employer] External Data [employer] - prod 10:54:20 Medications [...] Address Organization Details Last Updated DateTime 5 79 /min 16 /min 98.4 [degF] 90 % 90 % 69 /min 16 /min 97.9 [degF] 93 % 93 % 143/67 mm[Hg] 147/78 mm[Hg] Carolyn BERNAL - [facility] 12:45:14 Social History None recorded. Functional Status None recorded. Mental Status None recorded. Family History Nothing Reported. Medical History Condition Response Allergies/Hayfever Y Heart Problems N Coronary Artery Disease N Gout N Blood Diseases N Hyperthyroidism N Ear or Hearing Problems N Breast Cancer N Thyroid Problems N Lung Disease N Hypothyroidism Y Depression Y COPD Y GI Problems N Developmental or Behavioral Disorders [...] ICD10 Code Diagnosis IMO Codes Diagnosis Note [id number] Manfred Shelton MD Main Office [address] [place] [address] 05/04/2025 10:46:48 05/04/2025 14:18:05 [id number] Manfred Shelton MD Main Office [address] [address] 05/06/2025 10:55:59 05/06/2025 11:32:38 [id number] Manfred Shelton MD Main Office [address] [place] [address] 05/06/2025 13:04:28 05/07/2025 08:30:09 [id number] Manfred Shelton MD Main Office [address] [place] [address] 05/07/2025 10:45:55 05/08/2025 10:40:32 [id number] Manfred Shelton MD Main Office [address] [place] [address] 05/08/2025 10:55:11 05/08/2025 14:31:10 [id number] Manfred Shelton MD Main Office [address] [place] [address] 05/08/2025 13:08:42 05/08/2025 14:13:22 [id number] Manfred Shelton MD Main Office [address] [place] [address] 05/11/2025 10:59:55 05/11/2025 14:43:45 Type 2 diabetes mellitus 69218728 E11.69 [id number] Manfred Shelton MD Main Office [address] [place] [address] 05/12/2025 10:58:25 05/12/2025 16:06:58 [id number] Manfred Shelton MD Main Office [address] [place] [address] 05/13/2025 10:26:11 05/13/2025 14:22:52 Type 2 diabetes mellitus 26677261 E11.69 [id number] Manfred Shelton MD Main Office [address] [place] [address] 05/13/2025 13:16:44 05/13/2025 14:39:17 [id number] Manfred Shelton MD Main Office [address] [place] [address] 05/14/2025 10:20:17 05/14/2025 16:02:14 [id number] Manfred Shelton MD Main Office [address] [place] [address] 05/15/2025 10:48:13 05/18/2025 08:48:44 [id number] Manfred Shelton MD Main Office [address] [place] [address] 05/18/2025 10:59:56 05/18/2025 15:48:37 Type 2 diabetes mellitus 43687386 E11.69 [id number] Manfred Shelton MD Main Office [address] [place] [address] 05/19/2025 11:07:27 05/19/2025 14:52:31 [id number] Manfred Shelton MD Main Office [address] [place] [address] 05/20/2025 11:36:16 05/20/2025 13:20:26 5003 Manfred Shelton MD Main Office [address] [place] [address] 05/20/2025 12:28:38 05/20/2025 13:24:07 [id number] Manfred Shelton MD Main Office [address] [place] [address] 05/21/2025 10:14:02 05/22/2025 08:40:53 [id number] Manfred Shelton MD Main Office [address] [place] [address] 05/22/2025 10:05:00 05/22/2025 14:31:52 [id number] COLEMANPATRICE LAU, ROW BOSS Main Office [address] [place] [address] 05/25/2025 10:54:17 05/25/2025 14:23:41 [id number] COLEMAN JASBIR, R[facility] Main Office [address] [place] [address] 05/26/2025 10:04:52 05/26/2025 13:22:24 5083 COLEMAN JASBIR, R[facility] Main Office [address] [place] [address] 05/26/2025 16:38:48 05/26/2025 16:40:45 [id number] COLEMAN JASBIR, R[facility] Main Office [address] [place] [address] 05/27/2025 10:11:43 05/27/2025 13:22:20 [id number] COLEMANPATRICE LAU, ROW BOSS Main Office [address] [place] [address] 05/27/2025 13:11:38 05/27/2025 13:19:10 [id number] Manfred Shelton MD Main Office [address] [place] [address] 05/28/2025 10:14:13 05/29/2025 08:47:13 [id number] Manfred Shelton MD Main Office [address] [address] 05/29/2025 10:04:58 05/29/2025 17:43:48 [id number] Manfred Shelton MD Main Office [address] [place] [address] 06/02/2025 10:25:50 06/02/2025 14:14:27 [id number] Manfred Shelton MD Main Office [address] [place] [address] 06/03/2025 10:16:52 06/03/2025 14:45:20 Health Concerns Section Related Observation LastModified by Organization Detai ls LastModified Time None Recorded Concern Status LastModified by Organization Details LastModified Time None Recorded Payers Encounter Date Sequence Insurance Name Policy Number Policy Gonzales Covered Member ID Gonzales Member ID Guarantor Name 06/03/2025 2 [employer] Seema Delacruz [id number] Seema Delacruz 06/03/2025 1 [employer] Seema Delacruz [id number] Seema Delacruz OBGyn Episode No OBEpisode recorded.
--- OUTSIDE RECORDS SUMMARY | 2025-07-06 16:02 | XMS_ITS | Continuity of Care Document ---
Author Organization [place] [facility], Main Office Address [address] [place] [address] Care Team Providers Care Greenhouse Or Nursery Transplanter Name Role Phone STEPHY YUSUF Primary Care [...] Not available Not available Not available Hyperb juilo Therap y-120 2024 10:30A M [facility] [...] Modified By Organization Details Last Modified Time 06/26/2025 4755 BACKGROUND: Seema Delacruz is a 55 y.o. [...] pain stimulator in back. Diagnosis: L97.512, E11.621 Session Notes: Today's Date [id number] HBOT session 39 of 60 Next HBOT [id number] 30Jul - Patient cleared for 1st HBOT [...] full session with no problem. Antoinette Lau TEEN COUNSELOR 04Aug - Patient deemed safe for HBOT [...] antibiotics for an upper respiratory infection. Nicolasa TEEN COUNSELOR 07Aug- Patient cleared for HBOT today. VS stable. PAtient had little trouble reaching pressure today, but had to come out of chamber early due to needing to use restroom. She managed to do 4 segs-118 minutes. [place].Tanner TEEN COUNSELOR 08Aug - Patient cleared for HBOT today. VS stable. Patient completed full session with no problem. Antoinette Lau TEEN COUNSELOR 11Aug - Patient cleared for HBOT today. [...] full session with no problem. [place].Jessica Lau TEEN COUNSELOR 13Aug - Patient cleared for HBOT today. VS stable. Patient completed full session with no problem. Wound care to follow treatment today. Antoinette Lau TEEN COUNSELOR 14Aug - Patient cleared for HBOT today. VS stable. Patient completed full session with no problem. Antoinette Lau TEEN COUNSELOR 15Aug - Patient cleared for HBOT today. [...] attempt to try again on Sunday. Nicolasa TEEN COUNSELOR 18Aug - Patient cleared for HBOT today. VS stable. Patient completed full session with no problem. Antoinette Lau TEEN COUNSELOR 19Aug - Patient deemed safe for HBOT today. VS stable. FSBS within range. Patient completed full session with no problem. Antoinette Lau TEEN COUNSELOR 2015Aug - Patient cleared for HBOT today. [...] date andcompleted full session free of problem[place] [facility] [place]ared for [...] completed full session with no problem. Antoinette aLu APRN 12Sep - Found safe for HBOT [...] full session with no problem. M.A. Judi TEEN COUNSELOR 25Sep - Patient cleared for HBOT today. VS stable. Patient completed full session with no problem. Antoinette Sotowood TEEN COUNSELOR 26Sep - Deemed safe for HBOT on this date and completed the full session uneventfully. [facility] [place] Not available 06/26/2025 16:58:07 Reason for Referral None Reported. Problems Name Problem SNOMED Code Status Onset Date Resolution Date Notes Provider Name and Address Organization Details Recorded Time Upper respiratory infection 67477491 Active 2024 COLEMAN LAU NP null, [place] - [facility] 12:18:40 Episodic migraine 9441520012363 Active 2024 COLEMAN LAU NP null, [place] [facility] 12:34:01 Type 2 diabetes mellitus 74359911 Active 2024 COLEMAN LAU NP null, [place] - [facility] 15:27:12 Refractory migraine with aura 100767093 Active 2024 COLEMAN LAU NP null, [place] [...] completed Paula BERNAL - [facility] 07/02/2025 13:06:39 07/01/20 25 [facility] Therapy Treatment Form completed Paula Licea [place] - [facility] 07/01/2025 13:05:37 06/30/20 25 [facility] Therapy Treatment Form completed COLEMAN LAU NP [place] - [facility] 06/30/2025 13:46:12 06/29/20 25 [facility] Therapy Treatment Form completed Carolyn roland [place] - [facility] 06/29/2025 13:24:58 06/26/20 25 [facility] Therapy Treatment Form completed Manfred Shelton MD [place] - [facility] 06/26/2025 16:57:55 06/25/20 25 [facility] Therapy Treatment Form completed [facility] - [facility] 06/25/2025 12:47:07 06/24/20 25 [facility] Therapy Treatment Form completed [facility] - [facility] 06/24/2025 12:40:20 06/23/20 25 [facility] Therapy Treatment Form completed [facility] - [facility] 06/23/2025 12:39:50 06/22/20 25 [facility] Therapy Treatment Form completed [facility] - [facility] 06/22/2025 12:49:55 06/19/20 25 [facility] Therapy Treatment Form completed Manfred Shelton [place] - [facility] 06/19/2025 14:13:24 06/18/20 25 [facility] Therapy Treatment Form completed COLEMAN LAU NP [place] - [facility] 06/18/2025 13:17:34 06/17/20 25 [facility] Therapy Treatment Form completed [facility] - [facility] 06/17/2025 12:29:15 06/16/20 25 [facility] Therapy Treatment Form completed [facility] - [facility] 06/16/2025 12:45:53 06/15/20 25 [facility] Therapy Treatment Form completed [facility] - [facility] 06/15/2025 12:47:07 06/12/20 25 [facility] Therapy Treatment Form completed Manfred Shelton MD [place] - [facility] 06/12/2025 14:54:52 06/11/20 25 [facility] Therapy Treatment Form completed [facility] - [facility] 06/11/2025 13:02:39 06/10/20 25 [facility] Therapy Treatment Form completed [facility] - [facility] 06/10/2025 12:50:18 06/08/20 25 [facility] Therapy Treatment Form completed [facility] - [facility] 06/08/2025 12:56:07 06/05/20 [...] Evelia Winters [place] - [facility] 06/03/2025 14:11:11 06/02/20 25 [facility] Therapy Treatment Form completed Carolyn roland [place] - [facility] 06/02/2025 13:09:37 05/29/20 25 [facility] Therapy Treatment Form completed Carolyn roland [place] - [facility] 05/29/2025 12:25:31 05/28/20 25 [facility] Therapy Treatment Form completed Carolyn roland [place] - [facility] 05/28/2025 13:02:44 05/27/20 25 Wound completed COLEMAN LAU NP [place] - [facility] 05/27/2025 13:18:22 05/27/20 25 [facility] Therapy Treatment Form completed Carolyn roland [place] - [facility] 05/27/2025 12:50:01 05/26/20 25 Nurse Note completed Luciana Noriega [place] [facility] 05/26/2025 16:40:42 05/26/20 25 [facility] Therapy Treatment Form completed Carolyn roland [place] - [facility] 05/26/2025 12:27:56 05/25/20 25 [facility] Therapy Treatment Form completed [place]yn [place] - [facility] 05/25/2025 13:12:32 05/22/20 25 [facility] Therapy Treatment Form completed [place]yn [place] - [facility] 05/22/2025 12:33:28 05/21/20 25 [facility] Therapy Treatment Form completed Carolyn roland [place] - [facility] 05/21/2025 12:47:49 05/20/20 25 Wound completed COLEMAN LAU NP [place] - [facility] 05/20/2025 13:22:44 05/20/20 25 [facility] Therapy Treatment Form completed Moraima Moses [place] - [facility] 05/20/2025 12:52:27 05/19/20 25 [facility] Therapy Treatment Form completed Evelia Winters [place] - [facility] 05/19/2025 13:53:26 05/18/20 25 [facility] Therapy Treatment Form completed Carolyn roland [place] - [facility] 05/18/2025 13:22:00 05/15/20 25 [facility] Therapy Treatment Form completed Crystal Ruben [place] - [facility] 05/15/2025 [...] Care Therapy Treatment Form completed Carolyn luan [place] - [facility] 05/04/2025 12:48:46 05/01/20 [...] Not available Not available 04/23/2025 5640 RxNorm DOLOERS [place] - [facility] 14:25:04 1102 Rocephin medicatio n Not available Not available Not available 04/23/2025 9449 RxNorm [place]OLORES [place] - [facility] 14:25:10 1103 Inapsine medicatio n Not available Not available Not available 04/23/2025 63986 3 RxNorm [place] - [facility] 14:25:27 1104 Avelox medicatio n Not available Not available Not available 04/23/2025 46446 6 RxNorm Luciana servin, [place] - [facility] 14:25:52 1105 metformin medicatio n other Not available [facility] 04/23/20252023 6809 RxNorm GI issue s Luciana servin, [place] - [facility] 14:26:11 1253 Product containin g angiotens in-conver ting enzyme inhibitor (product) medicatio n cough moderate Not available 06/26/2025 38233 009 SNOMED Not Available [facility]isha - External [employer] - prod 10:54:20 1254 metformin hydrochlo ride medicatio n Not available Not available Not available 06/26/2025 00106 3 RxNorm Not Available [employer] External [employer] - prod 10:54:20 Medications [...] Address Organization Details Last Updated DateTime 5 93 /min 16 /min 97.9 [degF] 95 % 95 % 80 /min 16 /min 97.5 [degF] 91 % 91 % 160/80 mm[Hg] 164/89 mm[Hg] Paula BERNAL - [facility] 5 12:46:55 Social History None recorded. Functional Status None recorded. Mental Status None recorded. Family History Nothing Reported. Medical History Condition Response Allergies/Hayfever Y Heart Problems N Coronary Artery Disease N Gout N Blood Diseases N Ear or Hearing Problems N Hyperthyroidism N Breast Cancer N Thyroid Problems N Hypothyroidism Y COPD Y Depression Y Lung Disease N GI [...] ICD10 Code Diagnosis IMO Codes Diagnosis Note [id number] COLEMAN LAU NP Main Office [address] [place] [address] 05/26/2025 10:04:52 05/26/2025 13:22:24 5083 COLEMAN LAU, ARCHITECTURE ANALYST Main Office [address] [place] [address] 05/26/2025 16:38:48 05/26/2025 16:40:45 5087 COLEMAN LAU, ARCHITECTURE ANALYST Main Office [address] [place] [address] 05/27/2025 10:11:43 05/27/2025 13:22:20 5093 COLEMAN LAU, ARCHITECTURE ANALYST Main Office [address] [place] [address] 05/27/2025 13:11:38 05/27/2025 13:19:10 5104 Manfred Shelton MD Main Office [address] [place] [address] 05/28/2025 10:14:13 05/29/2025 08:47:13 [id number] Manfred Shelton MD Main Office [address] [place] [address] 05/29/2025 10:04:58 05/29/2025 17:43:48 [id number] Manfred Shelton MD Main Office [address] [place] [address] 06/02/2025 10:25:50 06/02/2025 14:14:27 [id number] Manfred Shelton MD Main Office [address] [place] [address] 06/03/2025 10:16:52 06/03/2025 14:45:20 [id number] Manfred Shelton MD Main Office [address] [place] [address] 06/04/2025 10:31:23 06/04/2025 13:58:07 [id number] Manfred Shelton MD Main Office [address] [place] [address] 06/04/2025 14:13:52 06/04/2025 14:25:08 [id number] Manfred Shelton MD Main Office [address] [place] [address] 06/05/2025 10:55:07 06/05/2025 16:50:44 5202 Manfred Shelton MD Main Office [address] [place] [address] 06/08/2025 10:25:37 06/08/2025 14:39:12 [id number] Manfred Shelton MD Main Office [address] [place] [address] 06/10/2025 10:19:13 06/10/2025 13:21:20 [id number] Manfred Shelton MD Main Office [address] [place] [address] 06/11/2025 10:35:04 06/11/2025 14:11:07 [id number] Manfred Shelton MD Main Office [address] [place] [address] 06/12/2025 10:59:45 06/12/2025 14:56:49 [id number] Manfred Shelton MD Main Office [address] [place] [address] 06/15/2025 10:50:33 06/15/2025 13:14:21 5311 Manfrde Shelton MD Main Office [address] [place] [address] 06/16/2025 10:14:56 06/16/2025 13:52:36 [id number] Manfred Shelton MD Main Office [address] [place] [address] 06/17/2025 10:28:52 06/17/2025 13:18:56 [id number] Manfred Shelton MD Main Office [address] [place] [address] 06/18/2025 10:16:09 06/18/2025 13:16:04 [id number] Manfred Shelton MD Main Office [address] [place] [address] 06/19/2025 10:44:19 06/19/2025 14:15:39 5367 COLEMAN LAU NP Main Office [address] [place] [address] 06/22/2025 10:36:06 06/22/2025 14:32:28 [id number] Manfred Shelton MD Main Office [address] [place] [address] 06/23/2025 10:18:15 06/23/2025 14:03:00 [id number] Manfred Shelton MD Main Office [address] [place] [address] 06/24/2025 10:23:16 06/24/2025 13:37:08 5419 Manfred Shelton MD Main Office [address] [place] [address] 06/25/2025 10:19:36 06/25/2025 14:27:35 5437 Manfred Shelton MD Main Office [address] [place] [address] 06/26/2025 10:52:38 06/26/2025 16:27:47 Health Concerns Section Related Observation LastModified by Organization Detai ls LastModified Time None Recorded Concern Status LastModified by Organization Details LastModified Time None Recorded Payers Encounter Date Sequence Insurance Name Policy Number Policy Gonzales Covered Member ID Gonzales Member ID Guarantor Name 06/26/2025 2 [employer] [facility] Seema Delacruz [id number] Seema Delacruz 06/26/2025 1 [employer] Seema Delacruz [id number] Seema Delacruz OBGyn Episode No OBEpisode recorded.
--- OUTSIDE RECORDS SUMMARY | 2025-07-06 16:02 | XMS_ITS | Clinical Summary ---
Author Organization [facility] Address [address] [place] [address] Care Team Providers Care Etched Circuit Processor Name Role Phone Unavailable Primary Care Provider [...] 2019 ZOSTER VACCINE (1 of 2) 2019 INFLUENZA VACCINE 05/01/2025 Insurance MEDICARE A & B Member Subscriber Plan / Payer (Ef fective 2002-Present) Name:Seema Delacruz Member ID:[id number] Relation to Subscriber:Self Name:Seema Delacruz Subscriber ID:[id number] Payer ID:[id number] Group ID:Not on file Type:Not on file Address: [address]
--- OUTSIDE RECORDS SUMMARY | 2025-07-06 16:02 | XMS_ITS | Continuity of Care Document ---
Author Organization [place] [facility], Main Office Address [address] [place] [address] Care Team Providers Care Slack Cooper Name Role Phone STEPHY YUSUF Primary Care [...] Modified By Organization Details Last Modified Time 07/01/2025 5423 BACKGROUND: Seema Delacruz is a 55 y.o. [...] E11.621 ___ ___ Session Notes: Today's Date 01Jul2025 HBOT session 42 of 60 Next HBOT 02Jul2025 30Jul - Patient cleared for 1st HBOT [...] her wear ear plugs during treatment. Nicolasa SILVA 31July - Patient cleared for HBOT today. [...] slightly red, but she was asymptomatic. Nicolasa SILVA 01Aug - Patient deemed safe for HBOT today. VS stable. Patient completed full session with no problem. Antoinette Lau LAR[employer] ANIMAL VETERINARIAN 04Aug - Patient deemed safe for HBOT today. VS stable. Patient completed full session with no problem. Antoinette Lau APRN 05Aug - patient out for another appt. DARYN 06Aug - Patient deemed safe for HBOT [...] antibiotics for an upper respiratory infection. Nicolasa LARGE ANIMAL VETERINARIAN 07Aug- Patient cleared for HBOT today. VS stable. PAtient had little trouble reaching pressure today, but had to come out of chamber early due to needing to use restroom. She managed to do 4 segs-118 minutes. [place].Tanner LARGE ANIMAL VETERINARIAN 08Aug - Patient cleared for HBOT today. VS stable. Patient completed full session with no problem. Antoinette Lau LARGE ANIMAL VETERINARIAN 11Aug - Patient cleared for HBOT today. [...] full session with no problem. Antoinette Lau LAR[employer] ANIMAL VETERINARIAN 13Aug - Patient cleared for HBOT today. VS stable. Patient completed full session with no problem. Wound care to follow treatment today. Antoinette Lau APRN 14Aug - Patient cleared for HBOT today. VS stable. Patient completed full session with no problem. Antoinette Lau LAR[employer] ANIMAL VETERINARIAN 15Aug - Patient cleared for HBOT today. [...] attempt to try again on Sunday. Nicolasa LARGE ANIMAL VETERINARIAN 18Aug - Patient cleared for HBOT today. VS stable. Patient completed full session with no problem. Antoinette Lau LARGE ANIMAL VETERINARIAN 19Aug - Patient deemed safe for HBOT today. VS stable. FSBS within range. Patient completed full session with no problem. Antoinette Lau APRN 2015Aug - Patient cleared for HBOT today. [...] completed full session with no problem. Antoinette Lua APRN 28Aug - Found safe for HBOT this date andcompleted full session free of problem. [facility] 29Aug - Cleared for HBOT his date [...] above 80 and was discharged with 92. [place] WATERS 08Sep - Patient deemed safe for HBOT today. VS stable. Patient completed full session with no problem. Antoinette Lau APRN 10Sep - Patient deemed safe for HBOT today. VS stable. Patient completed full session with no problem. Antoinette Lau APRN 11Sep - Patient cleared for HBOT today. VS stable. Patient completed full session with no problem. [place].Jessica Lau APRN 12Sep - Found safe for [...] was to proceed to another medical appointment. [place] W[place]ERS 22Sep - Patient cleared for HBOT today. VS stable. Patient completed full session with no problem. Antoinette Lau APRN 23Sep - Patient cleared for HBOT today. VS stable. Patient completed full session with no problem. Antoinette Lau APRN 24Sep - Patient cleared for HBOT today. VS stable. Patient completed full session with no problem. M.A. Judi LARGE ANIMAL VETERINARIAN 25Sep - Patient cleared for HBOT today. VS stable. Patient completed full session with no problem. Antoinette Lau LARGE ANIMAL VETERINARIAN 26Sep - Deemed safe for HBOT on this date and completed the full session uneventfully. [facility] 29Sep - Patient cleared for HBOT today. VS stable. Patient completed 3 Seg session with no problem. Antoinette Lau LAR[employer] ANIMAL VETERINARIAN 30Sep - Patient cleared for HBOT today. VS stable. Patient completed full session with no problem. Antoinette Lau LARGE ANIMAL VETERINARIAN 01Oct - Patient cleared for HBOT today. VS stable. Patient completed full session with no problem. Antoinette Lau LARGE ANIMAL VETERINARIAN Not available 07/01/2025 13:25:18 Reason for Referral None Reported. Problems Name Problem SNOMED Code Status Onset Date Resolution Date Notes Provider Name and Address Organization Details Recorded Time Upper respiratory infection 41039359 Active 2024 COLEMAN LAU NP null, [place] - [facility] 12:18:40 Episodic migraine 0412848817400 06 Active 2024 COLEMAN LAU NP null, [place] - [facility] 12:34:01 Type 2 diabetes mellitus 11443118 Active 2024 COLEMAN LAU NP null, [place] - [facility] 15:27:12 Refractory migraine with aura 793529674 Active 2024 COLEMAN LAU NP null, [place] [...] [facility] Therapy Treatment Form completed [facility] - [facility] 06/29/2025 13:24:58 06/26/20 25 [facility] Therapy Treatment Form completed Manfred Shelton MD [place] - [facility] 06/26/2025 16:57:55 06/25/20 25 [facility] Therapy Treatment Form completed [facility] 06/25/2025 12:47:07 06/24/20 25 [facility] Therapy Treatment Form completed [facility] - [facility] 06/24/2025 12:40:20 06/23/20 25 [facility] Therapy Treatment Form completed [facility] - [facility] 06/23/2025 12:39:50 06/22/20 25 [facility] Therapy Treatment Form completed [facility] 06/22/2025 12:49:55 06/19/20 25 [facility] Therapy Treatment Form completed Manfred Shelton MD [place] - [facility] 06/19/2025 14:13:24 06/18/20 25 [facility] Therapy Treatment Form completed COLEMAN LAU NP [place] - [facility] 06/18/2025 13:17:34 06/17/20 25 [facility] Therapy Treatment Form completed [facility] 06/17/2025 12:29:15 06/16/20 25 [facility] Therapy Treatment Form completed [facility] - [facility] 06/16/2025 12:45:53 06/15/20 25 [facility] Therapy Treatment Form completed [facility] - [facility] 06/15/2025 12:47:07 06/12/20 25 [facility] Therapy Treatment Form completed Manfred Shelton MD [place] - [facility] 06/12/2025 14:54:52 06/11/20 25 [facility] Therapy Treatment Form completed [facility] 06/11/2025 13:02:39 06/10/20 25 [facility] Therapy Treatment Form completed [facility] - [facility] 06/10/2025 12:50:18 06/08/20 25 [facility] Therapy Treatment Form completed [facility] 06/08/2025 12:56:07 06/05/20 25 [...] Carolyn roland [place] - [facility] 05/29/2025 12:25:31 [...] Carolyn luan [place] [facility] 05/25/2025 13:12:32 05/22/20 25 [facility] Therapy Treatment Form completed Carolyn roland [place] - [facility] 05/22/2025 12:33:28 05/21/20 25 [facility] Therapy Treatment Form completed Carolyn luan [place] - [facility] 05/21/2025 12:47:49 [...] Mary BERNAL - [facility] 05/15/2025 14:10:27 05/15/20 25 [facility] Additional Air Breaks Therapy Treatment Form completed Mary Miranda [place] - [facility] 05/15/2025 14:17:22 [...] 13:01:51 05/06/20 25 Wound completed COLEMAN LAU [employer] COUNSEL[employer] [place] [facility] 05/07/2025 08:29:18 05/06/20 25 [facility] Therapy Treatment Form completed Mary BERNAL - [facility] 05/06/2025 12:30:26 05/04/20 25 [facility] Therapy Treatment Form completed Carolyn BERNAL - [facility] 05/04/2025 12:48:46 05/01/20 25 [facility] Therapy Treatment Form completed Crystal Ruben [place] - [facility] 05/01/2025 12:20:36 04/30/20 25 [facility] Therapy Treatment Form completed COLEMAN LAU NP [place] - [facility] 04/30/2025 14:18:39 04/29/20 25 [facility] Therapy Treatment Form completed Mary Miranda [place] - [facility] 04/29/2025 13:00:12 Knee [...] Not available Not available Not available 04/23/2025 26583 3 RxNorm Luciana servin, [place] - [facility] 14:25:27 1104 Avelox medicatio n Not available Not available Not available 04/23/2025 31379 6 RxNorm Luciana servin, [place] - [facility] 14:25:52 1105 metformin medicatio n other Not available low 04/23/20252023 6809 RxNorm GI issue s Luciana Noriega null, [place] - [facility] 14:26:11 1253 Product containin g angiotens in-conver ting enzyme inhibitor (product) medicatio n cough moderate Not available 06/26/2025 39789 009 SNOMED Not Available taisha - [employer] - prod 10:54:20 1254 metformin hydrochlo ride medicatio n Not available Not available Not available 06/26/2025 22815 3 RxNorm Not Available [place] - [employer] - prod 10:54:20 [...] Address Organization Details Last Updated DateTime 5 76 /min 16 /min 97.9 [degF] 91 % 91 % 72 /min 16 /min 97.2 [degF] 94 % 94 % 164/81 mm[Hg] 152/85 mm[Hg] Paula Licea [place] [facility] 5 13:04:53 Social History None recorded. Functional Status None [...] ICD10 Code Diagnosis IMO Codes Diagnosis Note [id number] Manfred Shelton MD Main Office [address] [place] [address] 06/02/2025 10:25:50 06/02/2025 14:14:27 [id number] Manfred Shelton MD Main Office [address] [place] [address] 06/03/2025 10:16:52 06/03/2025 14:45:20 [id number] Manfred Shelton MD Main Office [address] [place] [address] 06/04/2025 10:31:23 06/04/2025 13:58:07 [id number] Manfred Shelton MD Main Office [address] [place] [address] 06/04/2025 14:13:52 06/04/2025 14:25:08 [id number] Manfred Shelton MD Main Office [address] [place] [address] 06/05/2025 10:55:07 06/05/2025 16:50:44 [id number] Manfred Shelton MD Main Office [address] [place] [address] 06/08/2025 10:25:37 06/08/2025 14:39:12 [id number] Manfred Shelton MD Main Office [address] [place] [address] 06/10/2025 10:19:13 06/10/2025 13:21:20 [id number] Manfred Shelton MD Main Office [address] [place] [address] 06/11/2025 10:35:04 06/11/2025 14:11:07 [id number] Manfred Shetlon MD Main Office [address] [place] [address] 06/12/2025 10:59:45 06/12/2025 14:56:49 [id number] Manfred Shelton MD Main Office [address] [place] [address] 06/15/2025 10:50:33 06/15/2025 13:14:21 [id number] Manfred Shelton MD Main Office [address] [place] [address] 06/16/2025 10:14:56 06/16/2025 13:52:36 [id number] Manfred Shelton MD Main Office [address] [place] [address] 06/17/2025 10:28:52 06/17/2025 13:18:56 [id number] Manfred Shelton MD Main Office [address] [place] [address] 06/18/2025 10:16:09 06/18/2025 13:16:04 [id number] Manfred Shelton MD Main Office [address] [place] [address] 06/19/2025 10:44:19 06/19/2025 14:15:39 [id number] COLEMAN LAU NP Main Office [address] [place] [address] 06/22/2025 10:36:06 06/22/2025 14:32:28 [id number] Manfred Shelton MD Main Office [address] [place] [address] 06/23/2025 10:18:15 06/23/2025 14:03:00 [id number] Manfred Shelton MD Main Office [address] [place] [address] 06/24/2025 10:23:16 06/24/2025 13:37:08 [id number] Manfred Shelton MD Main Office [address] [place] [address] 06/25/2025 10:19:36 06/25/2025 14:27:35 [id number] Manfred Shelton MD Main Office [address] [place] [address] 06/26/2025 10:52:38 06/26/2025 16:27:47 [id number] Manfred Shelton MD Main Office [address] [place] [address] 06/29/2025 10:44:14 06/29/2025 13:39:12 [id number] Manfred Shelton MD Main Office [address] [place] [address] 06/30/2025 10:42:21 06/30/2025 13:46:39 [id number] Manfred Shelton MD Main Office [address] [address] 07/01/2025 10:49:18 07/01/2025 13:25:24 Health Concerns Section Related Observation LastModified by Organization Detai ls LastModified Time None Recorded Concern Status LastModified by Organization Details LastModified Time None Recorded Payers Encounter Date Sequence Insurance Name Policy Number Policy Gonzales Covered Member ID Gonzales Member ID Guarantor Name 07/01/2025 2 [employer] Seema Delacruz [id number] Seema Delacruz 07/01/2025 1 [employer] Seema Delacruz [id number] Seema Delacruz OBGyn Episode No OBEpisode recorded.
--- OUTSIDE RECORDS SUMMARY | 2025-07-06 16:02 | XMS_ITS | Continuity of Care Document ---
Author Organization [place] - [facility], Main Office Address [address] [place] [address] Care Team Providers Care Custodial Maintenance Worker Name Role Phone STEPHY YUSUF Primary Care Provider [phone] Assessment No assessment recorded. Plan of Treatment [...] Modified By Organization Details Last Modified Time 06/10/2025 5237 BACKGROUND: Seema Delacruz is a 55 y.o. [...] E11.621 ___ ___ Session Notes: Today's Date 10Jun2025 HBOT session of 40 Next HBOT 11Jun2025 30Jul - Patient cleared for 1st HBOT [...] full session with no problem. [place].Jessica Lau WEB OPERATIONS MANAGER 04Aug - Patient deemed safe for HBOT today. VS stable. Patient completed full session with no problem. Antoinette Lau WEB OPERATIONS MANAGER 05Aug - patient out for another appt. [...] antibiotics for an upper respiratory infection. Nicolasa WEB OPERATIONS MANAGER 07Aug- Patient cleared for HBOT today. VS stable. PAtient had little trouble reaching pressure today, but had to come out of chamber early due to needing to use restroom. She managed to do 4 segs-118 minutes. [place].Tanner WEB OPERATIONS MANAGER 08Aug - Patient cleared for HBOT today. VS stable. Patient completed full session with no problem. Antoinette Lau WEB OPERATIONS MANAGER 11Aug - Patient cleared for HBOT today. [...] full session with no problem. Antoinette Lau WEB OPERATIONS MANAGER 13Aug - Patient cleared for HBOT today. VS stable. Patient completed full session with no problem. Wound care to follow treatment today. Antoinette Lau WEB OPERATIONS MANAGER 14Aug - Patient cleared for HBOT today. VS stable. Patient completed full session with no problem. Antoinette Lau WEB OPERATIONS MANAGER 15Aug - Patient cleared for HBOT today. [...] attempt to try again on Sunday. Nicolasa WEB OPERATIONS MANAGER 18Aug - Patient cleared for HBOT today. VS stable. Patient completed full session with no problem. Antoinette Lau WEB OPERATIONS MANAGER 19Aug - Patient deemed safe for HBOT today. VS stable. FSBS within range. Patient completed full session with no problem. Antoinette Lau WEB OPERATIONS MANAGER 2015Aug - Patient cleared for HBOT today. [...] date andcompleted full session free of problem[place] [facility] [place] Cleared for [place]OT his date [...] completed full session with no problem. Antoinette Judi WEB OPERATIONS MANAGER 10Sep - Patient deemed safe for HBOT today. VS stable. Patient completed full session with no problem. IsraelDeepaliJessica Judi WEB OPERATIONS MANAGER Not available 06/10/2025 13:21:13 Reason for Referral None Reported. Problems Name Problem SNOMED Code Status Onset Date Resolution Date Notes Provider Name and Address Organization Details Recorded Time Upper respiratory infection 53015185 Active 2024 COLEMAN LAU NP null, [place] - [facility] 12:18:40 Episodic migraine 7399213988435 Active 2024 COLEMAN LAU NP null, [place] - [facility] 12:34:01 Type 2 diabetes mellitus 53654524 Active 2024 COLEMAN LAU NP null, [place] - [facility] 15:27:12 Refractory migraine with aura 018971403 Active 2024 COLEMAN LAU NP null, [place] - [facility] 10:56:52 Problem Notes None recorded. Procedures Surgical History Date Name Laterality Status Provider Name and Address Organization Details Recorded Time 07/06/20 25 [facility] Therapy Treatment Form completed Carolyn roland [place] - [facility] 07/06/2025 13:06:29 07/03/20 25 [facility] Therapy Treatment Form completed Paula Licea [place] - [facility] 07/03/2025 12:47:29 07/02/20 25 [facility] Therapy Treatment Form completed Paula BERNAL - [facility] 07/02/2025 13:06:39 07/01/20 25 [facility] Therapy Treatment Form completed Paula BERNAL - [facility] 07/01/2025 13:05:37 06/30/20 25 [facility] Therapy Treatment Form completed ABDOULAYE HAQ - [facility] 06/30/2025 13:46:12 06/29/20 25 [facility] Therapy Treatment Form completed Carolyn roland [place] - [facility] 06/29/2025 13:24:58 06/26/20 25 [facility] Therapy Treatment Form completed Manfred Shelton, [place] - [facility] 06/26/2025 16:57:55 06/25/20 25 [facility] Therapy Treatment Form completed [facility] - [facility] 06/25/2025 12:47:07 06/24/20 25 [facility] Therapy Treatment Form completed [facility] - [facility] 06/24/2025 12:40:20 06/23/20 25 [facility] Therapy Treatment Form completed [facility] - [facility] 06/23/2025 12:39:50 06/22/20 25 [facility] Therapy Treatment Form completed [facility] - [facility] 06/22/2025 12:49:55 06/19/20 25 [facility] Therapy Treatment Form completed Manfred Shelton [place] - [facility] 06/19/2025 14:13:24 06/18/20 25 [facility] Therapy Treatment Form completed COLEMAN LAU NP [place] - [facility] 06/18/2025 13:17:34 06/17/20 25 [facility] Therapy Treatment Form completed [facility] - [facility] 06/17/2025 12:29:15 06/16/20 25 [facility] Therapy Treatment Form completed [facility] - [facility] 06/16/2025 12:45:53 06/15/20 25 [facility] Therapy Treatment Form completed [facility] - [facility] 06/15/2025 12:47:07 06/12/20 25 [facility] Therapy Treatment Form completed Manfred Shelton [place] - [facility] 06/12/2025 14:54:52 06/11/20 25 [facility] Therapy Treatment Form completed [facility] - [facility] 06/11/2025 13:02:39 06/10/20 25 [facility] Therapy Treatment Form completed [facility] - [facility] 06/10/2025 12:50:18 06/08/20 25 [facility] Therapy Treatment Form completed [facility] - [facility] 06/08/2025 12:56:07 06/05/20 25 [facility] Therapy Treatment Form completed Evelia Winters [place] - [facility] 06/05/2025 14:28:16 06/04/20 25 Wound completed COLEMAN LAU NP [place] - [facility] 06/04/2025 14:24:29 06/04/20 25 [facility] Therapy Treatment Form completed ABDOULAYE HAQ - [facility] 06/04/2025 13:56:49 06/03/20 25 [facility] Therapy Treatment Form completed Evelia Winters [place] - [facility] 06/03/2025 14:11:11 06/02/20 25 [facility] Therapy Treatment Form completed Carolyn BERNAL - [facility] 06/02/2025 13:09:37 05/29/20 [...] completed Carolyn BERNAL - [facility] 05/25/2025 13:12:32 05/22/20 25 [facility] Therapy Treatment Form completed Carolyn BERNAL - [facility] 05/22/2025 12:33:28 05/21/20 [...] Not available Not available 04/23/2025 5640 RxNorm [place] - [facility] 14:25:04 1102 Rocephin medicatio n Not available Not available Not available 04/23/2025 9449 RxNorm [place] - [facility] 14:25:10 1103 Inapsine medicatio n Not available Not available Not available 04/23/2025 58195 3 RxNorm [place] - [facility] 14:25:27 1104 Avelox medicatio n Not available Not available Not available 04/23/2025 31791 6 RxNorm [place] - [facility] 14:25:52 1105 metformin medicatio n other Not available [facility] 04/23/20252023 6809 RxNorm GI issue s Luciana servin, [place] - [facility] 14:26:11 1253 Product containin g angiotens in-conver ting enzyme inhibitor (product) medicatio n cough moderate Not available 06/26/2025 16477 009 SNOMED Not Available taisha - External Data Service - prod 5 10:54:20 1254 metformin hydrochlo ride medicatio n Not available Not available Not available 06/26/2025 81596 3 RxNorm Not Available taisha - External [...] Address Organization Details Last Updated DateTime 5 74 /min 16 /min 97.9 [degF] 88 % 88 % 67 /min 16 /min 98.2 [degF] 92 % 92 % 163/79 mm[Hg] 145/82 mm[Hg] [facility] - [facility] 5 12:50:33 Social History None recorded. Functional Status None recorded. Mental Status None recorded. Family History Nothing Reported. Medical History Condition Response Allergies/Hayfever Y Coronary Artery Disease N Heart Problems N Gout N Blood Diseases N Hyperthyroidism N Ear or Hearing Problems N Breast Cancer N Thyroid Problems N Hypothyroidism Y GI Problems N COPD Y Depression Y Lung Disease N Developmental or Behavioral Disorders N Skin Problems Y Anemia N Anxiety Disorder Y Diabetes Y Muscle, Joint, or Bone Problems N Arthritis Y Seizures/Epilepsy N AIDS/HIV N Congestive Heart Failure (CHF) N Cancer N Stroke N Diverticulitis N Asthma N Endometriosis N Bladder or Kidney Problems N Liver Disease N Heart Disease N Headaches Y Fibromyalgia N Chronic Ear Infections N Hypertension Y Osteoporosis N Kidney Disease N Gynecological HistoryNo gynecological history recorded. Obstetrics History GPAL:G 0 P 0 0 0 0 Past Encounters Encounter ID Performer Location Encounter Start Date Encounter Closed Date Diagnosis/Indication Diagnosis SNOMED-CT Code Diagnosis ICD10 Code Diagnosis IMO Codes Diagnosis Note [id number] Manfred Shelton MD Main Office [address] [place] [address] 05/11/2025 10:59:55 05/11/2025 14:43:45 Type 2 diabetes mellitus 85449809 E11.69 [id number] Manfred Shelton MD Main Office [address] [place] [address] 05/12/2025 10:58:25 05/12/2025 16:06:58 [id number] Manfred Shelton MD Main Office [address] [place] [address] 05/13/2025 10:26:11 05/13/2025 14:22:52 Type 2 diabetes mellitus 47676856 E11.69 [id number] Manfred Shelton MD Main Office [address] [place] [address] 05/13/2025 13:16:44 05/13/2025 14:39:17 [id number] Manfred Shelton MD Main Office [address] [place] , [place] [address] 05/14/2025 10:20:17 05/14/2025 16:02:14 [id number] Manfred Shelton MD Main Office [address] [place] [address] 05/15/2025 10:48:13 05/18/2025 08:48:44 [id number] Manfred Shelton MD Main Office [address] [place] , [place] [address] 05/18/2025 10:59:56 05/18/2025 15:48:37 Type 2 diabetes mellitus 33245716 E11.69 [id number] Manfred Shelton MD Main Office [address] [place] [address] 05/19/2025 11:07:27 05/19/2025 14:52:31 [id number] Manfred Shelton MD Main Office [address] [place] [address] 05/20/2025 11:36:16 05/20/2025 13:20:26 [id number] Manfred Shelton MD Main Office [address] [place] [address] 05/20/2025 12:28:38 05/20/2025 13:24:07 [id number] Manfred Shelton MD Main Office [address] [place] [address] 05/21/2025 10:14:02 05/22/2025 08:40:53 [id number] Manfred Shelton MD Main Office [address] [place] [address] 05/22/2025 10:05:00 05/22/2025 14:31:52 [id number] COLEMAN JUDI, STRIP CUTTING MACHINE OPERATOR Main Office [address] [place] [address] 05/25/2025 10:54:17 05/25/2025 14:23:41 [id number] COLEMAN JUDI, STRIP CUTTING MACHINE OPERATOR Main Office [address] [place] [address] 05/26/2025 10:04:52 05/26/2025 13:22:24 [id number] COLEMAN JUDI, STRIP CUTTING MACHINE OPERATOR Main Office [address] [place] [address] 05/26/2025 16:38:48 05/26/2025 16:40:45 [id number] COLEMAN JUDI, STRIP CUTTING MACHINE OPERATOR Main Office [address] [place] [address] 05/27/2025 10:11:43 05/27/2025 13:22:20 [id number] COLEMAN JUDI, STRIP CUTTING MACHINE OPERATOR Main Office [address] [place] [address] 05/27/2025 13:11:38 05/27/2025 13:19:10 [id number] Manfred Shelton MD Main Office [address] [place] [address] 05/28/2025 10:14:13 05/29/2025 08:47:13 [id number] Manfred Shelton MD Main Office [address] [place] [address] 05/29/2025 10:04:58 05/29/2025 17:43:48 [id number] Manfred Shelton MD Main Office [address] [place] [address] 06/02/2025 10:25:50 06/02/2025 14:14:27 [id number] Manfred Shelton MD Main Office [address] [place] [address] 06/03/2025 10:16:52 06/03/2025 14:45:20 [id number] Manfred Shelton MD Main Office [address] [place] [address] 06/04/2025 10:31:23 06/04/2025 13:58:07 [id number] Manfred Shelton MD Main Office [address] [place] [address] 06/04/2025 14:13:52 06/04/2025 14:25:08 [id number] Manfred Shelton MD Main Office [address] [place] [address] 06/05/2025 10:55:07 06/05/2025 16:50:44 [id number] Manfred Shelton MD Main Office [address] [place] [address] 06/08/2025 10:25:37 06/08/2025 14:39:12 [id number] Manfred Shelton MD Main Office [address] [place] [address] 06/10/2025 10:19:13 06/10/2025 13:21:20 Health Concerns Section Related Observation LastModified by Organization Detai ls LastModified Time None Recorded Concern Status LastModified by Organization Details LastModified Time None Recorded Payers Encounter Date Sequence Insurance Name Policy Number Policy Gonzales Covered Member ID Ognzales Member ID Guarantor Name 06/10/2025 2 [employer] Seema Delacruz [id number] Seema Delacruz 06/10/2025 1 [employer] Seema Delacruz [id number] Seema Delacruz OBGyn Episode No OBEpisode recorded.
--- OUTSIDE RECORDS SUMMARY | 2025-07-06 16:03 | XMS_ITS | Continuity of Care Document ---
Author Organization [place] - [facility], Main Office Address [address] [place] [address] Care Team Providers Care Investigator Utility Bill Complaints Name Role Phone STEPHY YUSUF Primary Care [...] Modified By Organization Details Last Modified Time 05/22/2025 [id number] BACKGROUND: Seema Delacruz is a 55 y.o. [...] Diagnosis: L97.512, E11.621 Session Notes: Today's Date [id number] HBOT session 17 of 40 Next HBOT [id number] 30Jul - Patient cleared for 1st HBOT [...] her wear ear plugs during treatment. Nicolasa [employer] 31July - Patient cleared for HBOT today. [...] full session with no problem. [place].Jessica Lau [employer] 04Aug - Patient deemed safe for HBOT today. VS stable. Patient completed full session with no problem. Antoinette Lau [employer] 05Aug - patient out for another appt. [...] antibiotics for an upper respiratory infection. Nicolasa [employer] 07Aug- Patient cleared for HBOT today. VS stable. PAtient had little trouble reaching pressure today, but had to come out of chamber early due to needing to use restroom. She managed to do 4 segs-118 minutes. [place].Tanner [employer] 08Aug - Patient cleared for HBOT today. VS stable. Patient completed full session with no problem. Antoinette Lau [employer] 11Aug - Patient cleared for HBOT today. [...] full session with no problem. Antoinette Lau [employer] 13Aug - Patient cleared for HBOT today. VS stable. Patient completed full session with no problem. Wound care to follow treatment today. Antoinette Lau [employer] 14Aug - Patient cleared for HBOT today. VS stable. Patient completed full session with no problem. Antoinette Lau [employer] 15Aug - Patient cleared for HBOT today. [...] attempt to try again on Sunday. Nicolasa [employer] 18Aug - Patient cleared for HBOT today. VS stable. Patient completed full session with no problem. Antoinette Lau [employer] 19Aug - Patient deemed safe for HBOT today. VS stable. FSBS within range. Patient completed full session with no problem. Antoinette Lau [employer] 2015Aug - Patient cleared for HBOT today. VS stable. Soon after reaching pressure, patient states that she is having anxiety, and wants to come out of chamber. We tried turning down pressure, and giving an air break, but she still insist on coming out. We brought her out, VS stable, wound care done. Nicolasa [employer] 21Aug - Patient deemed safe for HBOT today. VS stable. FSBS within range. Patient completed full session with no problem. Patient better tolerated treatment today in larger chamber with no reports of anxiety during treatment. Antoinette Lau [employer] 22Aug - Cleared for HBOT this date and did complete full session with no problem including no significant anxiety. Dressing change today per nursing. [facility] MD [email or web address] Not available 05/22/2025 14:31:45 Reason for Referral None Reported. Problems Name Problem SNOMED Code Status Onset Date Resolution Date Notes Provider Name and Address Organization Details Recorded Time Upper respiratory infection 40427150 Active 2024 COLEMAN LAU NP null, [place] - [facility] 12:18:40 Episodic migraine 8091747762002 Active 2024 COLEMAN LAU NP null, [place] - [facility] 12:34:01 Type 2 diabetes mellitus 58111530 Active 2024 COLEMAN LAU NP null, [place] - [facility] 15:27:12 Refractory migraine with aura 934209225 Active 2024 COLEMAN LAU NP null, [place] [...] Therapy Treatment Form completed COLEMAN LAU NP [place] - [facility] 06/30/2025 13:46:12 06/29/20 25 [facility] Therapy Treatment Form completed [facility] 06/29/2025 13:24:58 06/26/20 25 [facility] Therapy Treatment Form completed Manfred Shelton MD [place] - [facility] 06/26/2025 16:57:55 06/25/20 25 [facility] Therapy Treatment Form completed [facility] 06/25/2025 12:47:07 06/24/20 25 [facility] Therapy Treatment Form completed [facility] 06/24/2025 12:40:20 06/23/20 25 [facility] Therapy Treatment Form completed [facility] 06/23/2025 12:39:50 06/22/20 25 [facility] Therapy Treatment Form completed [facility] 06/22/2025 12:49:55 06/19/20 25 [facility] Therapy Treatment Form completed Manfred Shelton MD [facility] [place] 06/19/2025 14:13:24 06/18/20 25 [facility] Therapy Treatment Form completed COLEMAN LAU NP [place] [facility] 06/18/2025 13:17:34 06/17/20 25 [facility] Therapy Treatment Form completed [facility] 06/17/2025 12:29:15 06/16/20 25 [facility] Therapy Treatment Form completed [facility] 06/16/2025 12:45:53 06/15/20 25 [facility] Therapy Treatment Form completed [facility] 06/15/2025 12:47:07 06/12/20 25 [facility] Therapy Treatment Form completed Manfred Shelton MD [facility] [place] 06/12/2025 14:54:52 06/11/20 25 [facility] Therapy Treatment Form completed [facility] 06/11/2025 13:02:39 06/10/20 25 [facility] Therapy Treatment Form completed [facility] 06/10/2025 12:50:18 06/08/20 25 [facility] Therapy Treatment Form completed Carolyn sharp [place] - [facility] 06/08/2025 12:56:07 06/05/20 25 [facility] Therapy Treatment Form completed Evelia Singh [place] - [facility] 06/05/2025 14:28:16 06/04/20 25 Wound completed COLEMAN LAU NP [place] - [facility] 06/04/2025 14:24:29 06/04/20 25 [facility] Therapy Treatment Form completed COLEMAN LAU NP [place] [facility] 06/04/2025 13:56:49 06/03/20 25 [facility] Therapy Treatment Form completed Evelia BER[place] - [facility] 06/03/2025 14:11:11 06/02/20 25 [facility] Therapy Treatment Form completed Carolyn roland [place] - [facility] 06/02/2025 13:09:37 05/29/20 25 [facility] Therapy Treatment Form completed Carolyn roland [place] - [facility] 05/29/2025 12:25:31 05/28/20 25 [facility] Therapy Treatment Form completed Carolyn roland [place] - [facility] 05/28/2025 13:02:44 05/27/20 25 Wound completed COLEMAN LAU NP [place] [facility] 05/27/2025 13:18:22 05/27/20 25 [facility] Therapy Treatment Form completed Carolyn roland [place] - [facility] 05/27/2025 12:50:01 05/26/20 25 Nurse Note completed Luciana Noriega [place] - [facility] 05/26/2025 16:40:42 [...] Therapy Treatment Form completed COLEMAN LAU NP [place] - [facility] 04/30/2025 14:18:39 04/29/20 [...] Not available Not available Not available 04/23/2025 55150 3 RxNorm [place] - [facility] 14:25:27 1104 Avelox medicatio n Not available Not available Not available 04/23/2025 22594 6 RxNorm [place] - [facility] 14:25:52 1105 metformin medicatio n other Not available [facility] 04/23/20252023 6809 RxNorm GI issue s Luciana servin, [place] - [facility] 14:26:11 1253 Product containin g angiotens in-conver ting enzyme inhibitor (product) medicatio n cough moderate Not available 06/26/2025 94178 009 SNOMED Not Available taisha - External Data Service - prod 5 10:54:20 1254 metformin hydrochlo ride medicatio n Not available Not available Not available 06/26/2025 70766 3 RxNorm Not Available taisha - External [...] % 94 % 155/69 mm[Hg] 137/79 mm[Hg] Carolyn luan [place] - [facility] 5 12:33:17 Social History None recorded. Functional Status None [...] Office [address] [place] [address] 04/23/2025 14:15:51 04/24/2025 12:51:54 [id number] Manfred Shelton MD Main Office [address] [place] [address] 04/29/2025 10:50:02 04/29/2025 15:41:17 [id number] Manfred Shelton MD Main Office [address] [place] [address] 04/30/2025 11:16:06 04/30/2025 14:19:33 [id number] Manfred Shelton MD Main Office [address] [place] [address] 05/01/2025 10:18:55 05/01/2025 13:10:41 [id number] Manfred Shelton MD Main Office [address] [place] [address] 05/04/2025 10:46:48 05/04/2025 14:18:05 [id number] Manfred Shelton MD Main Office [address] [place] [address] 05/06/2025 10:55:59 05/06/2025 11:32:38 [id number] Manfred Shelton MD Main Office [address] [place] [address] 05/06/2025 13:04:28 05/07/2025 08:30:09 [id number] Manfred Shelton MD Main Office [address] [place] [address] 05/07/2025 10:45:55 05/08/2025 10:40:32 [id number] Manfred Shelton MD Main Office [address] [place] [address] 05/08/2025 10:55:11 05/08/2025 14:31:10 [id number] Manfred Shelton MD Main Office [address] [place] [address] 05/08/2025 13:08:42 05/08/2025 14:13:22 [id number] Manfred Shelton MD Main Office [address] [place] [address] 05/11/2025 10:59:55 05/11/2025 14:43:45 Type 2 diabetes mellitus 58116710 E11.69 [id number] Manfred Shelton MD Main Office [address] [place] [address] 05/12/2025 10:58:25 05/12/2025 16:06:58 [id number] Manfred Shelton MD Main Office [address] [place] [address] 05/13/2025 10:26:11 05/13/2025 14:22:52 Type 2 diabetes mellitus 16472597 E11.69 [id number] Manfred Shelton MD Main Office [address] [place] [address] 05/13/2025 13:16:44 05/13/2025 14:39:17 [id number] Manfred Shelton MD Main Office [address] [place] [address] 05/14/2025 10:20:17 05/14/2025 16:02:14 [id number] Manfred Shelton MD Main Office [address] [place] [address] 05/15/2025 10:48:13 05/18/2025 08:48:44 [id number] Manfred Shelton MD Main Office [address] [place] , [place] [address] 05/18/2025 10:59:56 05/18/2025 15:48:37 Type 2 diabetes mellitus 99488392 E11.69 [id number] Manfred Shelton MD Main Office [address] [place] [address] 05/19/2025 11:07:27 05/19/2025 14:52:31 [id number] Manfred Shelton MD Main Office [address] [place] [id number] 05/20/2025 11:36:16 05/20/2025 13:20:26 [id number] Manfred Shelton MD Main Office [address],[place] [address] 05/20/2025 12:28:38 05/20/2025 13:24:07 [id number] Manfred Shelton MD Main Office [address] [address] 05/21/2025 10:14:02 05/22/2025 08:40:53 [id number] Manfred Shelton MD Main Office [address] [address] 05/22/2025 10:05:00 05/22/2025 14:31:52 Health Concerns Section Related Observation LastModified by Organization Detai ls LastModified Time None Recorded Concern Status LastModified by Organization Details LastModified Time None Recorded Payers Encounter Date Sequence Insurance Name Policy Number Policy Gonzales Covered Member ID Gonzales Member ID Guarantor Name 05/22/2025 2 [employer] [facility] Seema Delacruz [id number] Seema Delacruz 05/22/2025 1 [employer] Seema Delacruz [id number] Seema Delacruz OBGyn Episode No OBEpisode recorded.
--- OUTSIDE RECORDS SUMMARY | 2025-07-06 16:04 | XMS_ITS | Continuity of Care Document ---
Author Organization [place] [facility], Main Office Address [address] [place] [address] Care Team Providers Care Retail Director Name Role Phone STEPHY YUSUF Primary Care [...] Modified By Organization Details Last Modified Time 05/11/2025 [id number] BACKGROUND: Seema Delacruz is a 55 y.o. [...] E11.621 ___ ___ Session Notes: Today's Date 11May2025 HBOT session 8 of 40 Next HBOT [id number] 30Jul - Patient cleared for 1st HBOT [...] full session with no problem. Antoinette Lau [employer] 04Aug - Patient deemed safe for HBOT [...] antibiotics for an upper respiratory infection. Nicolasa [employer] 07Aug- Patient cleared for HBOT today. VS stable. PAtient had little trouble reaching pressure today, but had to come out of chamber early due to needing to use restroom. She managed to do 4 segs-118 minutes. Nicolasa [employer] 08Aug - Patient cleared for HBOT today. VS stable. Patient completed full session with no problem. Antoinette Lau [employer] 11Aug - Patient cleared for HBOT today. [...] bit higher on a daily basis. Nicolasa SILVA Not available 05/11/2025 14:43:39 Reason for Referral None Reported. Problems Name Problem SNOMED Code Status Onset Date Resolution Date Notes Provider Name and Address Organization Details Recorded Time Upper respiratory infection 92208114 Active 2024 ABDOULAYE HAQ, [place] - [facility] 12:18:40 Episodic migraine 7932284193147 Active 2024 COLEMAN LAU NP null, [place] - [facility] 12:34:01 Type 2 diabetes mellitus 36919391 Active 2024 COLEMAN LAU NP null, [place] - [facility] 15:27:12 Refractory migraine with aura 675170365 Active 2024 COLEMAN LAU NP null, [place] - [facility] 10:56:52 Problem Notes None recorded. Procedures Surgical History Date Name Laterality Status Provider Name and Address Organization Details Recorded Time 07/06/20 25 [facility] Therapy Treatment Form completed Carolyn roland [place] - [facility] 07/06/2025 13:06:29 07/03/20 25 [facility] Therapy Treatment Form completed Paula Licea [place] - [facility] 07/03/2025 12:47:29 07/02/20 25 [facility] Therapy Treatment Form completed Paula Licea [place] - [facility] 07/02/2025 13:06:39 07/01/20 25 [facility] Therapy Treatment Form completed Paula Licea [place] - [facility] 07/01/2025 13:05:37 06/30/20 25 [facility] Therapy Treatment Form completed COLEMAN LAU NP [place] - [facility] 06/30/2025 13:46:12 06/29/20 25 [facility] Therapy Treatment Form completed [facility] - [facility] 06/29/2025 13:24:58 06/26/20 25 [facility] Therapy Treatment Form completed Manfred Shelton MD [place] - [facility] 06/26/2025 16:57:55 06/25/20 25 [facility] Therapy Treatment Form completed [facility] - [facility] 06/25/2025 12:47:07 06/24/20 25 [facility] Therapy Treatment Form completed [facility] - [facility] 06/24/2025 12:40:20 06/23/20 25 [facility] Therapy Treatment Form completed [facility] - [facility] 06/23/2025 12:39:50 06/22/20 25 [facility] Therapy Treatment Form completed [facility] - [facility] 06/22/2025 12:49:55 06/19/20 25 [facility] Therapy Treatment Form completed Manfred Shelton MD [place] [facility] 06/19/2025 14:13:24 06/18/20 25 [facility] Therapy Treatment Form completed COLEMAN LAU NP [place] [facility] 06/18/2025 13:17:34 06/17/20 25 [facility] Therapy Treatment Form completed [facility] - [facility] 06/17/2025 12:29:15 06/16/20 25 [facility] Therapy Treatment Form completed [facility] - [facility] 06/16/2025 12:45:53 06/15/20 25 [facility] Therapy Treatment Form completed [facility] - [facility] 06/15/2025 12:47:07 06/12/20 25 [facility] Therapy Treatment Form completed Manfred Shelton MD [place] - [facility] 06/12/2025 14:54:52 06/11/20 25 [facility] Therapy Treatment Form completed Carolyn sharp [place] - [facility] 06/11/2025 13:02:39 06/10/20 25 [facility] Therapy Treatment Form completed [facility] - [facility] 06/10/2025 12:50:18 06/08/20 25 [facility] Therapy Treatment Form completed [facility] - [facility] 06/08/2025 12:56:07 06/05/20 25 [facility] Therapy Treatment Form completed Eveliapatricia Winters [place] - [facility] 06/05/2025 14:28:16 [...] [facility] Therapy Treatment Form completed [facility] - [facility] 06/02/2025 13:09:37 05/29/20 25 [facility] Therapy Treatment Form completed [facility] - [facility] 05/29/2025 12:25:31 05/28/20 25 [facility] Therapy Treatment Form completed [facility] - [facility] 05/28/2025 13:02:44 05/27/20 25 Wound completed COLEMAN LAU NP [place] - [facility] 05/27/2025 13:18:22 05/27/20 25 [facility] Therapy Treatment Form completed [facility] - [facility] 05/27/2025 12:50:01 05/26/20 25 Nurse Note completed Luciana Noriega [place] [facility] 05/26/2025 16:40:42 05/26/20 25 [facility] Therapy Treatment Form completed [facility] - [facility] 05/26/2025 12:27:56 05/25/20 25 [facility] Therapy Treatment Form completed [facility] - [facility] 05/25/2025 13:12:32 05/22/20 25 [facility] Therapy Treatment Form completed [facility] - [facility] 05/22/2025 12:33:28 05/21/20 [...] Mary Miranda [place] - [facility] 05/06/2025 12:30:26 05/04/20 25 [facility] Therapy Treatment Form completed Carolyn roland [place] - [facility] 05/04/2025 12:48:46 05/01/20 25 [facility] Therapy Treatment Form completed Mary Miarnda [place] - [facility] 05/01/2025 12:20:36 04/30/20 25 [facility] Therapy Treatment Form completed COLEMANPATRICE LAU NP [place] - [facility] 04/30/2025 14:18:39 04/29/20 25 [facility] Therapy Treatment Form completed Mary Miranda [place] [facility] 04/29/2025 13:00:12 Knee Replacement completed Luciana Noriega [place] - [facility] 04/23/2025 14:32:38 procedure on integumentary system completed Luciana Noriega [place] - [facility] 04/23/2025 14:33:00 cataract surgery completed Luciana BERNAL - [facility] 04/23/2025 14:33:07 amputation of toe completed Luciana Noriega [place] - [facility] 04/23/2025 14:33:26 Imaging [...] Not available Not available Not available 04/23/2025 01347 3 RxNorm Luciana servin, [place] - [facility] 14:25:27 1104 Avelox medicatio n Not available Not available Not available 04/23/2025 28016 6 RxNorm [place] - [facility] 14:25:52 1105 metformin medicatio n other Not available low 04/23/20252023 6809 RxNorm GI issue s Luciana Hari servin, [place] - [facility] 14:26:11 1253 Product containin g angiotens in-conver ting enzyme inhibitor (product) medicatio n cough moderate Not available 06/26/2025 36170 009 SNOMED Not Available taisha - External Data Service - prod 10:54:20 1254 metformin hydrochlo ride medicatio n Not available Not available Not available 06/26/2025 01921 3 RxNorm Not Available taisha - External [...] Not Available Not A vailable Not Available [employer] Joelle 14 Day Sensor kit change every [...] Address Organization Details Last Updated DateTime 5 82 /min 16 /min 98 [degF] 98 % 98 % 76 /min 16 /min 97.3 [degF] 98 % 98 % 142/62 mm[Hg] 115/60 mm[Hg] Moraima BERNAL - [facility] 5 13:35:18 Social History None recorded. Functional Status None [...] MD Main Office [address] [place] [address] 04/23/2025 14:15:51 04/24/2025 12:51:54 [id number] Manfred Shelton MD Main Office [address] [place] [address] 04/29/2025 10:50:02 04/29/2025 15:41:17 [id number] Manfred Shelton MD Main Office [address] [place] [address] 04/30/2025 11:16:06 04/30/2025 14:19:33 [id number] Manfred Shelton MD Main Office [address] [place] [address] 05/01/2025 10:18:55 05/01/2025 13:10:41 [id number] Manfred Shelton MD Main Office [address] [place] [address] 05/04/2025 10:46:48 05/04/2025 14:18:05 [id number] Manfred Shelton MD Main Office [address] [place] [address] 05/06/2025 10:55:59 05/06/2025 11:32:38 [id number] Manfred Shelton MD Main Office [address] [place] [address] 05/06/2025 13:04:28 05/07/2025 08:30:09 [id number] Manfred Shelton MD Main Office [address] [place] [address] 05/07/2025 10:45:55 05/08/2025 10:40:32 [id number] Manfred Shelton MD Main Office [address] [place] [address] 05/08/2025 10:55:11 05/08/2025 14:31:10 [id number] Manfred Shelton MD Main Office [address] [place] [address] 05/08/2025 13:08:42 05/08/2025 14:13:22 [id number] Manfred Shelton MD Main Office [address] [place] [address] 05/11/2025 10:59:55 05/11/2025 14:43:45 Type 2 diabetes mellitus 55918180 E11.69 [id number] Health Concerns Section Related Observation LastModified by Organization Detai ls LastModified Time None Recorded Concern Status LastModified by Organization Details LastModified Time None Recorded Payers Encounter Date Sequence Insurance Name Policy Number Policy Gonzales Covered Member ID Gonzales Member ID Guarantor Name 05/11/2025 2 [employer] [facility] Seema Delacruz [id number] Seema Delacruz 05/11/2025 1 [employer] Seema Delacruz [id number] Seema Delacruz OBGyn Episode No OBEpisode recorded.
--- OUTSIDE RECORDS SUMMARY | 2025-07-06 16:05 | XMS_ITS | Continuity of Care Document ---
Author Organization [place] - [facility], Main Office Address [address] [place] [address] Care Team Providers Care Finished Metal Repairer Name Role Phone STEPHY YUSUF Primary Care [...] Modified By Organization Details Last Modified Time 07/06/2025 6196 BACKGROUND: Seema Delacruz is a 55 y.o. [...] Diagnosis: L97.512, E11.621 Session Notes: Today's Date 06Jul2025 HBOT session 45 of 60 Next HBOT 07Jul2025 30Jul - Patient cleared for 1st HBOT [...] full session with no problem. Antoinette Lau SHEET METAL ENGINEER 04Aug - Patient deemed safe for HBOT [...] antibiotics for an upper respiratory infection. Nicolasa SHEET METAL ENGINEER 07Aug- Patient cleared for HBOT today. VS stable. PAtient had little trouble reaching pressure today, but had to come out of chamber early due to needing to use restroom. She managed to do 4 segs-118 minutes. [place].Tanner SHEET METAL ENGINEER 08Aug - Patient cleared for HBOT today. VS stable. Patient completed full session with no problem. Antoinette Lau SHEET METAL ENGINEER 11Aug - Patient cleared for HBOT today. [...] full session with no problem. Antoinette Lau SHEET METAL ENGINEER 13Aug - Patient cleared for HBOT today. VS stable. Patient completed full session with no problem. Wound care to follow treatment today. Antoinette Lau APRN 14Aug - Patient cleared for HBOT today. VS stable. Patient completed full session with no problem. Antoinette Lau SHEET METAL ENGINEER 15Aug - Patient cleared for HBOT today. [...] attempt to try again on Sunday. Nicolasa SHEET METAL ENGINEER 18Aug - Patient cleared for HBOT today. VS stable. Patient completed full session with no problem. Antoinette Lau SHEET METAL ENGINEER 19Aug - Patient deemed safe for HBOT [...] date andcompleted full session free of problem[place] [facility] [place] full session with no problem. M.A. Judi SHEET METAL ENGINEER 25Sep - Patient cleared for HBOT today. VS stable. Patient completed full session with no problem. [place].Jessica Lau SHEET METAL ENGINEER 26Sep - Deemed safe for HBOT on this date and completed the full session uneventfully. Estefania WATERS 29Sep - Patient cleared for HBOT today. VS stable. Patient completed 3 Seg session with no problem. [place].Jessica Lau SHEET METAL ENGINEER 30Sep - Patient cleared for HBOT today. VS stable. Patient completed full session with no problem. [place].Jessica Lau SHEET METAL ENGINEER 01Oct - Patient cleared for HBOT today. VS stable. Patient completed full session with no problem. [place].Jessica Lau SHEET METAL ENGINEER 02Oct - Cleared for HBOT this date and completed full session free of problem. [facility] [place] - Deemed safe for HBOT today and completed her full session without problem. [facility] [place] - Found safe for HBOT this date and tolerated her session free of problem. [facility] [place] [email or web address] Not available 07/06/2025 14:36:54 Reason for Referral None Reported. Problems Name Problem SNOMED Code Status Onset Date Resolution Date Notes Provider Name and Address Organization Details Recorded Time Upper respiratory infection 68351336 Active 2024 COLEMAN LAU NP null, [place] - [facility] 12:18:40 Episodic migraine 2567088827719 Active 2024 COLEMAN LAU NP null, [place] - [facility] 12:34:01 Type 2 diabetes mellitus 72504394 Active 2024 COLEMAN LAU NP null, [place] - [facility] 15:27:12 Refractory migraine with aura 256194828 Active 2024 COLEMAN LAU NP null, [place] [...] Care Therapy Treatment Form completed Paula Licea [place] - [facility] 07/01/2025 13:05:37 06/30/20 25 [facility] Therapy Treatment Form completed COLEMAN LAU NP [place] - [facility] 06/30/2025 13:46:12 06/29/20 25 [facility] Therapy Treatment Form completed [facility] - [facility] 06/29/2025 13:24:58 06/26/20 25 [facility] Therapy Treatment Form completed Manfred Shelton MD [place] - [facility] 06/26/2025 16:57:55 06/25/20 25 [facility] Therapy Treatment Form completed [facility] - [facility] 06/25/2025 12:47:07 06/24/20 25 [facility] Therapy Treatment Form completed [facility] - [facility] 06/24/2025 12:40:20 06/23/20 25 [facility] Therapy Treatment Form completed [facility] - [facility] 06/23/2025 12:39:50 06/22/20 25 [facility] Therapy Treatment Form completed [facility] - [facility] 06/22/2025 12:49:55 06/19/20 25 [facility] Therapy Treatment Form completed Manfred Shelton MD [place] - [facility] 06/19/2025 14:13:24 06/18/20 25 [facility] Therapy Treatment Form completed COLEMAN LAU NP [place] - [facility] 06/18/2025 13:17:34 06/17/20 25 [facility] Therapy Treatment Form completed [facility] - [facility] 06/17/2025 12:29:15 06/16/20 25 [facility] Therapy Treatment Form completed [facility] - [facility] 06/16/2025 12:45:53 06/15/20 25 [facility] Therapy Treatment Form completed [facility] - [facility] 06/15/2025 12:47:07 06/12/20 25 [facility] Therapy Treatment Form completed Manfred Shelton MD [place] - [facility] 06/12/2025 14:54:52 06/11/20 25 [facility] Therapy Treatment Form completed [facility] - [facility] 06/11/2025 13:02:39 06/10/20 25 [facility] Therapy Treatment Form completed [facility] [place] - [facility] 06/10/2025 12:50:18 06/08/20 25 [facility] Therapy Treatment Form completed [facility] [place] [facility] 06/08/2025 12:56:07 06/05/20 25 [facility] Therapy Treatment Form completed Evelia Salashiram BENR[place] - [facility] 06/05/2025 14:28:16 06/04/20 25 Wound completed COLEMAN LAU NP [place] - [facility] 06/04/2025 14:24:29 06/04/20 25 [facility] Therapy Treatment Form completed COLEMAN LAU NP [place] [facility] 06/04/2025 13:56:49 06/03/20 25 [facility] Therapy Treatment Form completed Eveliapatricia Winters [place] - [facility] 06/03/2025 14:11:11 06/02/20 25 [facility] Therapy Treatment Form completed [facility] - [facility] 06/02/2025 13:09:37 05/29/20 25 [facility] Therapy Treatment Form completed [facility] [place] [facility] 05/29/2025 12:25:31 05/28/20 25 [facility] Therapy Treatment Form completed [facility] - [facility] 05/28/2025 13:02:44 05/27/20 25 Wound completed COLEMAN LAU NP [place] - [facility] 05/27/2025 13:18:22 05/27/20 25 [facility] Therapy Treatment Form completed [facility] - [facility] 05/27/2025 12:50:01 05/26/20 25 Nurse Note completed Luciana Noriega [place] [facility] 05/26/2025 16:40:42 05/26/20 25 [facility] Therapy Treatment Form completed [facility] - [facility] 05/26/2025 12:27:56 05/25/20 25 [facility] Therapy Treatment Form completed [facility] - [facility] 05/25/2025 13:12:32 05/22/20 25 [facility] Therapy Treatment Form completed [facility] - [facility] 05/22/2025 12:33:28 05/21/20 25 [facility] Therapy Treatment Form completed [facility] - [facility] 05/21/2025 12:47:49 05/20/20 [...] Mary Miranda [place] - [facility] 05/08/2025 13:37:30 05/07/20 25 [facility] Therapy Treatment Form completed Mary Riveroer [place] - [facility] 05/07/2025 13:01:51 05/06/20 [...] Care 04/23/2025 14:33:00 cataract surgery completed Luciana Noriega [place] - [facility] 04/23/2025 14:33:07 amputation [...] Not available Not available Not available 04/23/2025 00125 3 RxNorm Luciana servin, [place] - [facility] 14:25:27 1104 Avelox medicatio n Not available Not available Not available 04/23/2025 83550 6 RxNorm Luciana servin, [place] - [facility] 14:25:52 1105 metformin medicatio n other Not available [facility] 04/23/20252023 6809 RxNorm GI issue s Luciana Noriega null, [place] - [facility] 14:26:11 1253 Product containin g angiotens in-conver ting enzyme inhibitor (product) medicatio n cough moderate Not available 06/26/2025 70369 009 SNOMED Not Available taisha - External Data Service - prod 10:54:20 1254 metformin hydrochlo ride medicatio n Not available Not available Not available 06/26/2025 58492 3 RxNorm Not Available taisha - External [...] Address Organization Details Last Updated DateTime 5 80 /min 16 /min 99.1 [degF] 92 % 92 % 82 /min 16 /min 97.9 [degF] 97 % 97 % 142/79 mm[Hg] 118/71 mm[Hg] [facility] - [facility] 5 13:06:17 Social History None recorded. Functional Status None [...] ICD10 Code Diagnosis IMO Codes Diagnosis Note [id number] Manfred Shelton MD Main Office [address] [place] [address] 06/08/2025 10:25:37 06/08/2025 14:39:12 [id number] Manfred Shelton MD Main Office [address] [place] [address] 06/10/2025 10:19:13 06/10/2025 13:21:20 [id number] Manfred Shelton MD Main Office [address] [place] [address] 06/11/2025 10:35:04 06/11/2025 14:11:07 [id number] Manfred Shelton MD Main Office [address] [place] [address] 06/12/2025 10:59:45 06/12/2025 14:56:49 [id number] Manfred Shelton MD Main Office [address] [place] [address] 06/15/2025 10:50:33 06/15/2025 13:14:21 [id number] Manfred Shelton MD Main Office [address] [place] [address] 06/16/2025 10:14:56 06/16/2025 13:52:36 [id number] Manfred Shelotn MD Main Office [address] [place] [address] 06/17/2025 10:28:52 06/17/2025 13:18:56 [id number] Manfred Shelton MD Main Office [address] [place] [address] 06/18/2025 10:16:09 06/18/2025 13:16:04 [id number] Manfred Shelton MD Main Office [address] [place] [address] 06/19/2025 10:44:19 06/19/2025 14:15:39 [id number] COLEMAN LAU FITNESS ASSISTANT Main Office [address] [place] [address] 06/22/2025 10:36:06 06/22/2025 14:32:28 [id number] Manfred Shelton MD Main Office [address] [place] [address] 06/23/2025 10:18:15 06/23/2025 14:03:00 [id number] Manfred Shelton MD Main Office [address] [place] [address] 06/24/2025 10:23:16 06/24/2025 13:37:08 [id number] Manfred Shelton MD Main Office [address] [place] [address] 06/25/2025 10:19:36 06/25/2025 14:27:35 [id number] Manfred Shelton MD Main Office [address] [place] [address] 06/26/2025 10:52:38 06/26/2025 16:27:47 [id number] Manfred Shelton MD Main Office [address] [place] [address] 06/29/2025 10:44:14 06/29/2025 13:39:12 [id number] Manfred Shelton MD Main Office [address] [place] [address] 06/30/2025 10:42:21 06/30/2025 13:46:39 [id number] Manfred Shelton MD Main Office [address] [place] [address] 07/01/2025 10:49:18 07/01/2025 13:25:24 [id number] Manfred Shelton MD Main Office [address] [place] [address] 07/02/2025 10:15:06 07/03/2025 07:21:23 [id number] Manfred Shelton MD Main Office [address] [place] [address] 07/03/2025 10:50:33 07/03/2025 17:53:35 [id number] Manfred Shelton MD Main Office [address] [place] [address] 07/06/2025 10:54:52 07/06/2025 14:37:01 Health Concerns Section Related Observation LastModified by Organization Detai ls LastModified Time None Recorded Concern Status LastModified by Organization Details LastModified Time None Recorded Payers Encounter Date Sequence Insurance Name Policy Number Policy Gonzales Covered Member ID Gonzales Member ID Guarantor Name 07/06/2025 2 [employer] [facility] Seema Delacruz [id number] Seema Delacruz 07/06/2025 1 [employer] Seema Delacruz [id number] Seema Delacruz OBGyn Episode No OBEpisode recorded.
--- OUTSIDE RECORDS SUMMARY | 2025-07-06 16:05 | XMS_ITS | Continuity of Care Document ---
Author Organization [place] [facility], Main Office Address [address] [place] [address] Care Team Providers Care Build Engineer Name Role Phone STEPHY YUSUF Primary Care Provider [phone] Assessment No assessment recorded. Plan of Treatment [...] Not available Not available Not available Hyperb ujlio Therap y-[id number] 2024 10:30A M [facility] [...] Modified By Organization Details Last Modified Time 05/13/2025 4913 BACKGROUND: Seema Delacruz is a 55 y.o. [...] E11.621 ___ ___ Session Notes: Today's Date [id number] HBOT session 10 of 40 Next HBOT [id number] 30Jul - Patient cleared for 1st HBOT [...] her wear ear plugs during treatment. Nicolasa CELLULAR EQUIPMENT REPAIRER 31July - Patient cleared for HBOT today. [...] slightly red, but she was asymptomatic. [place].Tanner CELLULAR EQUIPMENT REPAIRER 01Aug - Patient deemed safe for HBOT today. VS stable. Patient completed full session with no problem. [place].Jessica Lau CELLULAR EQUIPMENT REPAIRER 04Aug - Patient deemed safe for HBOT today. VS stable. Patient completed full session with no problem. Antoinette Lau CELLULAR EQUIPMENT REPAIRER 05Aug - patient out for another appt. [...] antibiotics for an upper respiratory infection. Nicolasa CELLULAR EQUIPMENT REPAIRER 07Aug- Patient cleared for HBOT today. VS stable. PAtient had little trouble reaching pressure today, but had to come out of chamber early due to needing to use restroom. She managed to do 4 segs-118 minutes. Nicolasa CELLULAR EQUIPMENT REPAIRER 08Aug - Patient cleared for HBOT today. VS stable. Patient completed full session with no problem. Antoinette Lau CELLULAR EQUIPMENT REPAIRER 11Aug - Patient cleared for HBOT today. [...] bit higher on a daily basis. Nicolasa CELLULAR EQUIPMENT REPAIRER 12Aug - Patient cleared for HBOT today. VS stable. Patient completed full session with no problem. Antoinette Lau CELLULAR EQUIPMENT REPAIRER 13Aug - Patient cleared for HBOT today. VS stable. Patient completed full session with no problem. Wound care to follow treatment today. Antoinette Lau CELLULAR EQUIPMENT REPAIRER Not available 05/13/2025 14:22:47 Reason for Referral None Reported. Problems Name Problem SNOMED Code Status Onset Date Resolution Date Notes Provider Name and Address Organization Details Recorded Time Upper respiratory infection 25236906 Active 2024 COLEMAN LAU NP null, [place] - [facility] 5 12:18:40 Episodic migraine 4553428450263 Active 2024 COLEMAN LAU NP null, [place] - [facility] 5 12:34:01 Type 2 diabetes mellitus 97994876 Active 2024 COLEMAN LAU NP null, [place] - [facility] 5 15:27:12 Refractory migraine with aura 221762221 Active 2024 COLEMAN LAU NP null, [place] - [facility] 10:56:52 Problem Notes None recorded. Procedures Surgical History Date Name Laterality Status Provider Name and Address Organization Details Recorded Time 07/06/20 25 [facility] Therapy Treatment Form completed Carolyn roland [place] - [facility] 07/06/2025 13:06:29 07/03/20 25 [facility] Therapy Treatment Form completed Paula Licea [place] - [facility] 07/03/2025 12:47:29 07/02/20 25 [facility] Therapy Treatment Form completed Paula Licea [place] - [facility] 07/02/2025 13:06:39 07/01/20 25 [facility] Therapy Treatment Form completed Paula BERNAL - [facility] 07/01/2025 13:05:37 06/30/20 25 [facility] Therapy Treatment Form completed COLEMAN LAU NP [place] - [facility] 06/30/2025 13:46:12 06/29/20 25 [facility] Therapy Treatment Form completed Carolyn roland [place] - [facility] 06/29/2025 13:24:58 06/26/20 25 [facility] Therapy Treatment Form completed Manfred Shelton MD [place] - [facility] 06/26/2025 16:57:55 06/25/20 25 [facility] Therapy Treatment Form completed Carolyn luan [place] - [facility] 06/25/2025 12:47:07 06/24/20 25 [facility] Therapy Treatment Form completed Carolyn luan [place] - [facility] 06/24/2025 12:40:20 06/23/20 25 [facility] Therapy Treatment Form completed [facility] - [facility] 06/23/2025 12:39:50 06/22/20 25 [facility] Therapy Treatment Form completed Carolyn luan [place] - [facility] 06/22/2025 12:49:55 06/19/20 25 [facility] Therapy Treatment Form completed Manfred Shelton [place] - [facility] 06/19/2025 14:13:24 06/18/20 25 [facility] Therapy Treatment Form completed COLEMAN LAU NP [place] - [facility] 06/18/2025 13:17:34 06/17/20 25 [facility] Therapy Treatment Form completed [facility] - [facility] 06/17/2025 12:29:15 06/16/20 25 [facility] Therapy Treatment Form completed Carolyn luan [place] - [facility] 06/16/2025 12:45:53 06/15/20 25 [facility] Therapy Treatment Form completed [facility] [place] - [facility] 06/15/2025 12:47:07 06/12/20 25 [facility] Therapy Treatment Form completed Manfred Shelton MD [place] - [facility] 06/12/2025 14:54:52 06/11/20 25 [facility] Therapy Treatment Form completed [facility] - [facility] 06/11/2025 13:02:39 06/10/20 25 [facility] Therapy Treatment Form completed [facility] - [facility] 06/10/2025 12:50:18 06/08/20 25 [facility] Therapy Treatment Form completed [facility] - [facility] 06/08/2025 12:56:07 06/05/20 25 [facility] Therapy Treatment Form completed Evelia Winters [place] - [facility] 06/05/2025 14:28:16 06/04/20 25 Wound completed COLEMAN LAU NP [place] - [facility] 06/04/2025 14:24:29 06/04/20 25 [facility] Therapy Treatment Form completed COLEMAN LAU NP [place] [facility] 06/04/2025 13:56:49 06/03/20 25 [facility] Therapy Treatment Form completed Eveliapatricia Winters [place] - [facility] 06/03/2025 14:11:11 06/02/20 25 [facility] Therapy Treatment Form completed [facility] - [facility] 06/02/2025 13:09:37 05/29/20 25 [facility] Therapy Treatment Form completed [facility] - [facility] 05/29/2025 12:25:31 05/28/20 25 [facility] Therapy Treatment Form completed [facility] - [facility] 05/28/2025 13:02:44 05/27/20 25 Wound completed COLEMAN LAU NP [place] - [facility] 05/27/2025 13:18:22 05/27/20 25 [facility] Therapy Treatment Form completed [facility] - [facility] 05/27/2025 12:50:01 05/26/20 25 Nurse Note completed Luciana Noriega [place] [facility] 05/26/2025 16:40:42 05/26/20 25 [facility] Therapy Treatment Form completed [facility] - [facility] 05/26/2025 [...] Oxygen Care Therapy Treatment Form completed Evelia Marinahiram [place] - [facility] 05/19/2025 13:53:26 [...] Care Therapy Treatment Form completed Mary Ruben [place] - [facility] 05/14/2025 13:46:28 05/13/20 25 Wound completed COLEMAN LAU NP [place] - [facility] 05/13/2025 14:38:11 05/13/20 25 [facility] Therapy Treatment Form completed Moraima Johnsons [place] - [facility] 05/13/2025 13:30:22 05/12/20 25 [facility] Therapy Treatment Form completed Mary Riveroer [place] - [facility] 05/12/2025 13:20:36 05/11/20 25 [facility] Therapy Treatment Form completed Moraima Johnsons [place] - [facility] 05/11/2025 14:12:30 05/08/20 25 Wound completed COLEMAN LAU NP [place] - [facility] 05/08/2025 14:12:38 05/08/20 25 [facility] Therapy Treatment Form completed Mary Riveroer [place] - [facility] 05/08/2025 13:37:30 05/07/20 25 [facility] Therapy Treatment Form completed Mary BERNAL - [facility] 05/07/2025 13:01:51 05/06/20 25 Wound completed COLEMAN LAUABDOULAYE [place] - [facility] 05/07/2025 08:29:18 [...] Oxygen Care Therapy Treatment Form completed COLEMAN LAUABDOULAYE [place] - [facility] 04/30/2025 14:18:39 [...] n Not available Not available Not available 04/23/202540096 3 RxNorm Luciana servin, [place] - [facility] 14:25:27 1104 Avelox medicatio n Not available Not available Not available 04/23/2025 58633 6 RxNorm Luciana servin, [place] - [facility] 5 14:25:52 1105 metformin medicatio n other Not available low 04/23/20252023 6809 RxNorm GI issue s Luciana servin, [place] - [facility] 5 14:26:11 1253 Product containin g angiotens in-conver ting enzyme inhibitor (product) medicatio n cough moderate Not available 06/26/2025 22930 009 SNOMED Not Available taisha - External Data Service - prod 5 10:54:20 1254 metformin hydrochlo ride medicatio n Not available Not available Not available 06/26/2025 19576 3 RxNorm Not Available taisha - External [...] Available No t Available Vitals Date Recorded Oxygen saturation Oxygen saturation in Arterial blood by Pulse oximetry Body temperature Respiratory rate Heart rate Heart rate Respiratory rate Body temperature Oxygen saturation Oxygen saturation in Arterial blood by Pulse oximetry Systolic And Diastolic Systolic And Diastolic Provider Name and Address Organization Details Last Updated DateTime 5 93 % 93 % 97.4 [degF] 16 /min 74 /min 71 /min 16 /min 97.7 [degF] 96 % 96 % 154/74 mm[Hg] 133/67 mm[Hg] Moraima [place] - [facility] 5 13:27:29 Social History None recorded. Functional Status None [...] MD Main Office [address] [place] [address] 04/23/2025 14:15:51 04/24/2025 12:51:54 [id number] Manfred Shelton MD Main Office [address] [place] [address] 04/29/2025 10:50:02 04/29/2025 15:41:17 [id number] Manfred Shelton MD Main Office [address] [place] [id number] 04/30/2025 11:16:06 04/30/2025 14:19:33 [id number] Manfred Shelton MD Main Office [address] [place] [address] 05/01/2025 10:18:55 05/01/2025 13:10:41 [id number] Manfred Shelton MD Main Office [address] [place] [address] 05/04/2025 10:46:48 05/04/2025 14:18:05 [id number] Manfred Shelton MD Main Office [address] [place] [address] 05/06/2025 10:55:59 05/06/2025 11:32:38 [id number] Manfred Shelton MD Main Office [address] [place] [address] 05/06/2025 13:04:28 05/07/2025 08:30:09 [id number] Manfred Shelton MD Main Office [address] [place] [address] 05/07/2025 10:45:55 05/08/2025 10:40:32 [id number] Manfred Shelton MD Main Office [address] [place] [address] 05/08/2025 10:55:11 05/08/2025 14:31:10 [id number] Manfred Shelton MD Main Office [address] [place] [address] 05/08/2025 13:08:42 05/08/2025 14:13:22 [id number] Manfred Shelton MD Main Office [address] [place] [address] 05/11/2025 10:59:55 05/11/2025 14:43:45 Type 2 diabetes mellitus [id number] E11.69 [id number] Manfred Shelton MD Main Office [address] [place] [address] 05/12/2025 10:58:25 05/12/2025 16:06:58 [id number] Manfred Shelton MD Main Office [address] [place] [address] 05/13/2025 10:26:11 05/13/2025 14:22:52 Type 2 diabetes mellitus 40609580 E11.69 [id number] Manfred Shelton MD Main Office [address] [place] [address] 05/13/2025 13:16:44 05/13/2025 14:39:17 Health Concerns Section Related Observation LastModified by Organization Detai ls LastModified Time None Recorded Concern Status LastModified by Organization Details LastModified Time None Recorded Payers Encounter Date Sequence Insurance Name Policy Number Policy Gnozales Covered Member ID Gonzales Member ID Guarantor Name 05/13/[address] [facility] Seema Delacruz [id number] Seema Delacruz 05/13/2025 1 SAVANNA Delacruz [id number] Seema Delacruz Notes Date Note Type Note Provider Name and Address Organization Details Recorded Time 5 text/html Seema Delacruz is a 55 y.o. female who comes to see us today as a referral from Dr. Ortiz. to help assist with her wound care. Ms Delacruz has right foot Diabetic wounds, [...] pain pump and pain stimulator in back. PMH includes:Lymphedema [I89.0]Foot ulceration, right, with fat layer exposed (CMS/HCC) [L97.512]Open wound [T14.8XXA]Peripheral edema [R60.0]Ulcer of toe of right foot, with fat layer exposed (CMS/HCC) [L97.512]Ulcer of left heel, with fat layer exposed (CMS/HCC) [L97.422]Morbid obesity with body mass index (BMI) of 40.0 or higher (CMS/HCC) [E66.01]Excessive skin and subcutaneous tissue [L98.7]Microalbuminuria [R80.9]Cervical radiculopathy [M54.12]Neck pain [M54.2]Chronic obstructive pulmonary disease (CMS/HCC) [J44.9]Disorder of thyroid [E07.9]Essential (primary) hypertension [I10]Pure hypercholesterolemia [E78.00]Type 2 diabetes mellitus without (mention of) complications [E11.9]Hematoma [T14.8XXA] PSH includes:Amputation of toeCataract surgeryKnee replacementProcedure on integumentary system Diagnosis: M86.671, L97.512, E11.621 COLEMAN LAU NP null, [place] - [facility] 05/13/2025 14:39:16 OBGyn Episode No OBEpisode recorded.
--- OUTSIDE RECORDS SUMMARY | 2025-07-06 16:05 | XMS_ITS | Continuity of Care Document ---
Author Organization [place] [facility], Main Office Address [address] [place] [address] Care Team Providers Care Toolman Name Role Phone STEPHY YUSUF Primary Care Provider [phone] Assessment No assessment recorded. Plan of Treatment [...] Modified By Organization Details Last Modified Time 06/29/2025 [id number] BACKGROUND: Seema Delacruz is a 55 y.o. [...] E11.621 ___ ___ Session Notes: Today's Date [id number] HBOT session 40 of 60 Next HBOT [id number] 30Jul - Patient cleared for 1st HBOT [...] full session with no problem. Antoinette Lau RESIDENT PROGRAM SPECIALIST 04Aug - Patient deemed safe for HBOT [...] antibiotics for an upper respiratory infection. Nicolasa RESIDENT PROGRAM SPECIALIST 07Aug- Patient cleared for HBOT today. VS stable. PAtient had little trouble reaching pressure today, but had to come out of chamber early due to needing to use restroom. She managed to do 4 segs-118 minutes. Israel.Tanner RESIDENT PROGRAM SPECIALIST 08Aug - Patient cleared for HBOT today. VS stable. Patient completed full session with no problem. Antoinette Lau RESIDENT PROGRAM SPECIALIST 11Aug - Patient cleared for HBOT today. [...] full session with no problem. [place].Jessica Lau RESIDENT PROGRAM SPECIALIST 13Aug - Patient cleared for HBOT today. VS stable. Patient completed full session with no problem. Wound care to follow treatment today. Antoinette Lau RESIDENT PROGRAM SPECIALIST 14Aug - Patient cleared for HBOT today. VS stable. Patient completed full session with no problem. Antoinette Lau RESIDENT PROGRAM SPECIALIST 15Aug - Patient cleared for HBOT today. [...] attempt to try again on Sunday. Nicolasa RESIDENT PROGRAM SPECIALIST 18Aug - Patient cleared for HBOT today. VS stable. Patient completed full session with no problem. Antoinette Lau RESIDENT PROGRAM SPECIALIST 19Aug - Patient deemed safe for HBOT today. VS stable. FSBS within range. Patient completed full session with no problem. Antoinette Lau RESIDENT PROGRAM SPECIALIST 2015Aug - Patient cleared for HBOT today. [...] date andcompleted full session free of problem. [facility] [place] 29Aug - Cleared for [...] session with no problem. Antoinette Lua APRN 10Sep - Patient deemed safe for [...] full session with no problem. M.A. Judi RESIDENT PROGRAM SPECIALIST 25Sep - Patient cleared for HBOT today. VS stable. Patient completed full session with no problem. Antoinette Sotowood RESIDENT PROGRAM SPECIALIST 26Sep - Deemed safe for HBOT on this date and completed the full session uneventfully. [facility] [place] 29Sep - Patient cleared for HBOT today. VS stable. Patient completed 3 Seg session with no problem. Antoinette Lau RESIDENT PROGRAM SPECIALIST Not available 06/29/2025 13:39:05 Reason for Referral None Reported. Problems Name Problem SNOMED Code Status Onset Date Resolution Date Notes Provider Name and Address Organization Details Recorded Time Upper respiratory infection 74625168 Active 2024 COLEMAN LAU NP null, [place] - [facility] 12:18:40 Episodic migraine 1059129663400 Active 2024 COLEMAN LAU NP null, [place] - [facility] 12:34:01 Type 2 diabetes mellitus 72510824 Active 2024 COLEMAN LAU NP null, [place] [facility] 15:27:12 Refractory migraine with aura 802089628 Active 2024 COLEMAN LAU NP null, [place] - [facility] 10:56:52 Problem Notes None recorded. Procedures Surgical History Date Name Laterality Status Provider Name and Address Organization Details Recorded Time 07/06/20 25 [facility] Therapy Treatment Form completed Carolyn BERNAL - [facility] 07/06/2025 13:06:29 07/03/20 [...] Therapy Treatment Form completed Manfred Shelton MD [place] - [facility] 06/26/2025 16:57:55 06/25/20 25 [facility] Therapy Treatment Form completed [facility] - [facility] 06/25/2025 12:47:07 06/24/20 25 [facility] Therapy Treatment Form completed [facility] - [facility] 06/24/2025 12:40:20 06/23/20 25 [facility] Therapy Treatment Form completed [facility] - [facility] 06/23/2025 12:39:50 06/22/20 25 [facility] Therapy Treatment Form completed [facility] - [facility] 06/22/2025 12:49:55 06/19/20 25 [facility] Therapy Treatment Form completed Manfred Shelton [place] - [facility] 06/19/2025 14:13:24 06/18/20 25 [facility] Therapy Treatment Form completed COLEMAN LAU NP [place] - [facility] 06/18/2025 13:17:34 06/17/20 25 [facility] Therapy Treatment Form completed [facility] - [facility] 06/17/2025 12:29:15 06/16/20 25 [facility] Therapy Treatment Form completed [facility] - [facility] 06/16/2025 12:45:53 06/15/20 25 [facility] Therapy Treatment Form completed [facility] - [facility] 06/15/2025 12:47:07 06/12/20 25 [facility] Therapy Treatment Form completed Manfred Shelton [place] - [facility] 06/12/2025 14:54:52 06/11/20 25 [facility] Therapy Treatment Form completed [facility] - [facility] 06/11/2025 13:02:39 06/10/20 25 [facility] Therapy Treatment Form completed [facility] - [facility] 06/10/2025 12:50:18 06/08/20 25 [facility] Therapy Treatment Form completed [facility] - [facility] 06/08/2025 12:56:07 06/05/20 25 [facility] Therapy Treatment Form completed Evelia Winters [place] - [facility] 06/05/2025 14:28:16 06/04/20 [...] Care Therapy Treatment Form completed Carolyn roland [place] - [facility] 05/25/2025 13:12:32 05/22/20 [...] Carolyn sharp [place] - [facility] 05/18/2025 13:22:00 [...] [place] [facility] 04/30/2025 14:18:39 07/30/20 25 [facility] Therapy Treatment Form [...] Not available Not available Not available 04/23/2025 99767 3 RxNorm DOLORES Andrew - [facility] 14:25:27 1104 Avelox medicatio n Not available Not available Not available 04/23/2025 41097 6 RxNorm DOLORES [place] - [facility] 14:25:52 1105 metformin medicatio n other Not available [facility] 04/23/20252023 6809 RxNorm GI issue s DOLORES [place] - [facility] 14:26:11 1253 Product containin g angiotens in-conver ting enzyme inhibitor (product) medicatio n cough moderate Not available 06/26/2025 26460 009 SNOMED Not Available taisha - External Data [employer] - prod 10:54:20 1254 metformin hydrochlo ride medicatio n Not available Not available Not available 06/26/2025 04045 3 RxNorm Not Available [place] - External Data Service - prod 10:54:20 [...] Updated DateTime 5 82 /min 16 /min 95.7 [degF] 95 % 95 % 72 /min 16 /min 95.5 [degF] 95 % 95 % 159/75 mm[Hg] 131/75 mm[Hg] [facility] - [facility] 5 13:15:34 Social History None recorded. Functional Status None [...] ICD10 Code Diagnosis IMO Codes Diagnosis Note [id number] Manfred Shelton MD Main Office [address] [place] [address] 05/29/2025 10:04:58 05/29/2025 17:43:48 [id number] Manfred Shelton MD Main Office [address] [place] [address] 06/02/2025 10:25:50 06/02/2025 14:14:27 [id number] Manfred Shelton MD Main Office [address] [place] [address] 06/03/2025 10:16:52 06/03/2025 14:45:20 [id number] Manfred Shelton MD Main Office [address] [place] [address] 06/04/2025 10:31:23 06/04/2025 13:58:07 5173 Manfred Shelton MD Main Office [address] [place] [address] 06/04/2025 14:13:52 06/04/2025 14:25:08 [id number] Manfred Shelton MD Main Office [address] [place] [address] 06/05/2025 10:55:07 06/05/2025 16:50:44 5202 Manfred Shelton MD Main Office [address] [place] [address] 06/08/2025 10:25:37 06/08/2025 14:39:12 [id number] Manfred Shelton MD Main Office [address] [place] [address] 06/10/2025 10:19:13 06/10/2025 13:21:20 [id number] Manfred Shelton MD Main Office [address] [place] [address] 06/11/2025 10:35:04 06/11/2025 14:11:07 [id number] Manfred Shelton MD Main Office [address] [place] [address] 06/12/2025 10:59:45 06/12/2025 14:56:49 [id number] Manfred Shelton MD Main Office [address] [place] [address] 06/15/2025 10:50:33 06/15/2025 13:14:21 5311 Manfred Shelton MD Main Office [address] [place] [address] 06/16/2025 10:14:56 06/16/2025 13:52:36 5329 Manfred Shelton MD Main Office [address] [place] [address] 06/17/2025 10:28:52 06/17/2025 13:18:56 5341 Manfred Shelton MD Main Office [address] [place] [address] 06/18/2025 10:16:09 06/18/2025 13:16:04 5358 Manfred Shelton MD Main Office [address] [place] [address] 06/19/2025 10:44:19 06/19/2025 14:15:39 5367 COLEMAN LAU NP Main Office [address] [place] [address] 06/22/2025 10:36:06 06/22/2025 14:32:28 5385 Manfred Shelton MD Main Office [address] [place] [address] 06/23/2025 10:18:15 06/23/2025 14:03:00 [id number] Manfred Shelton MD Main Office [address] [place] [address] 06/24/2025 10:23:16 06/24/2025 13:37:08 5419 Manfred Shelton MD Main Office [address] [place] [address] 06/25/2025 10:19:36 06/25/2025 14:27:35 5437 Manfred Shelton MD Main Office [address] [place] [address] 06/26/2025 10:52:38 06/26/2025 16:27:47 5456 Manfred Shelton MD Main Office [address] [place] [address] 06/29/2025 10:44:14 06/29/2025 13:39:12 Health Concerns Section Related Observation LastModified by Organization Detai ls LastModified Time None Recorded Concern Status LastModified by Organization Details LastModified Time None Recorded Payers Encounter Date Sequence Insurance Name Policy Number Policy Gonzales Covered Member ID Gonzales Member ID Guarantor Name 06/29/2025 2 [employer] Seema Delacruz [id number] Seema Delacruz 06/29/2025 1 [employer] Seema Delacruz [id number] Seema Delacruz OBGyn Episode No OBEpisode recorded.
--- OUTSIDE RECORDS SUMMARY | 2025-07-06 16:05 | XMS_ITS | Continuity of Care Document ---
Author Organization [place] [facility], Main Office Address [address] [place] [address] Care Team Providers Care Boom Supervisor Name Role Phone STEPHY YUSUF Primary Care [...] Modified By Organization Details Last Modified Time 06/16/2025 2012 BACKGROUND: Seema Delacruz is a 55 y.o. [...] E11.621 ___ ___ Session Notes: Today's Date [id number] HBOT session 31 of 40 Next HBOT [id number] 30Jul - Patient cleared for 1st HBOT [...] slightly red, but she was asymptomatic. [place].Tanner ENGLISH INSTRUCTOR 01Aug - Patient deemed safe for HBOT today. VS stable. Patient completed full session with no problem. Antoinette Lau ENGLISH INSTRUCTOR 04Aug - Patient deemed safe for HBOT today. VS stable. Patient completed full session with no problem. Antoinette Lau ENGLISH INSTRUCTOR 05Aug - patient out for another appt. [...] antibiotics for an upper respiratory infection. Nicolasa ENGLISH INSTRUCTOR 07Aug- Patient cleared for HBOT today. VS stable. PAtient had little trouble reaching pressure today, but had to come out of chamber early due to needing to use restroom. She managed to do 4 segs-118 minutes. [place].Tanner ENGLISH INSTRUCTOR 08Aug - Patient cleared for HBOT today. VS stable. Patient completed full session with no problem. Antoinette Lau ENGLISH INSTRUCTOR 11Aug - Patient cleared for HBOT today. [...] full session with no problem. [place].Jessica Lau ENGLISH INSTRUCTOR 13Aug - Patient cleared for HBOT today. VS stable. Patient completed full session with no problem. Wound care to follow treatment today. Antoinette Lau ENGLISH INSTRUCTOR 14Aug - Patient cleared for HBOT today. VS stable. Patient completed full session with no problem. Antoinette Lau ENGLISH INSTRUCTOR 15Aug - Patient cleared for HBOT today. [...] attempt to try again on Sunday. Nicolasa ENGLISH INSTRUCTOR 18Aug - Patient cleared for HBOT today. VS stable. Patient completed full session with no problem. Antoinette Lau ENGLISH INSTRUCTOR 19Aug - Patient deemed safe for HBOT today. VS stable. FSBS within range. Patient completed full session with no problem. Antoinette Lau ENGLISH INSTRUCTOR 2015Aug - Patient cleared for HBOT today. [...] date andcompleted full session free of problem. [facility] [place] 29Aug - Cleared for HBOT his date [...] 80 and was discharged with 92. JMEstefania WTAERS 08Sep - Patient deemed safe for HBOT today. VS stable. Patient completed full session with no problem. Antoinette Lau ENGLISH INSTRUCTOR 10Sep - Patient deemed safe for HBOT today. VS stable. Patient completed full session with no problem. Antoinette Lau ENGLISH INSTRUCTOR 11Sep - Patient cleared for HBOT today. VS stable. Patient completed full session with no problem. Antoinette Lau ENGLISH INSTRUCTOR 12Sep - Found safe for HBOT this date. Completed curtailed session free of problem. Session shortened to satisfy demand of ride provider. Estefania WATERS 15Sep - Patient cleared for HBOT today. VS stable. Patient completed full session with no problem. Antoinette Lau ENGLISH INSTRUCTOR 16Sep - Patient cleared for HBOT today. VS stable. Patient completed full session with no problem. Antoinette Lau ENGLISH INSTRUCTOR Not available 06/16/2025 13:51:47 Reason for Referral None Reported. Problems Name Problem SNOMED Code Status Onset Date Resolution Date Notes Provider Name and Address Organization Details Recorded Time Upper respiratory infection 92324300 Active 2024 COLEMAN LAU NP null, [place] - [facility] 12:18:40 Episodic migraine 3747871446385 06 Active 2024 COLEMAN LAU NP null, [place] [facility] 12:34:01 Type 2 diabetes mellitus 83087676 Active 2024 COLEMAN LAU NP null, [place] [facility] 15:27:12 Refractory migraine with aura 533027443 Active 2024 COLEMAN LAU NP null, [place] [...] Care Therapy Treatment Form completed Paula Licea [place] - [facility] 07/01/2025 13:05:37 06/30/20 25 [facility] Therapy Treatment Form completed COLEMAN LAU NP [place] - [facility] 06/30/2025 13:46:12 06/29/20 25 [facility] Therapy Treatment Form completed [facility] - [facility] 06/29/2025 13:24:58 06/26/20 25 [facility] Therapy Treatment Form completed Manfred Shelton MD [place] - [facility] 06/26/2025 16:57:55 06/25/20 25 [facility] Therapy Treatment Form completed [facility] 06/25/2025 12:47:07 06/24/20 25 [facility] Therapy Treatment Form completed [facility] 06/24/2025 12:40:20 06/23/20 25 [facility] Therapy Treatment Form completed [facility] 06/23/2025 12:39:50 06/22/20 25 [facility] Therapy Treatment Form completed [facility] 06/22/2025 12:49:55 06/19/20 25 [facility] Therapy Treatment Form completed Manfred Shelton MD [place] - [facility] 06/19/2025 14:13:24 06/18/20 25 [facility] Therapy Treatment Form completed COLEMAN LAU NP [place] - [facility] 06/18/2025 13:17:34 06/17/20 25 [facility] Therapy Treatment Form completed [facility] - [facility] 06/17/2025 12:29:15 06/16/20 25 [facility] Therapy Treatment Form completed [facility] 06/16/2025 12:45:53 06/15/20 25 [facility] Therapy Treatment Form completed [facility] 06/15/2025 12:47:07 06/12/20 25 [facility] Therapy Treatment Form completed Manfred Shelton MD [place] - [facility] 06/12/2025 14:54:52 06/11/20 25 [facility] Therapy Treatment Form completed [facility] 06/11/2025 13:02:39 06/10/20 25 [facility] Therapy Treatment Form completed Carolyn sharp [place] - [facility] 06/10/2025 12:50:18 06/08/20 25 [facility] Therapy Treatment Form completed Carolyn roland [place] - [facility] 06/08/2025 12:56:07 06/05/20 25 [facility] Therapy Treatment Form completed Eveliashaggy BERNAL - [facility] 06/05/2025 14:28:16 06/04/20 [...] Carolyn luan [place] - [facility] 05/27/2025 12:50:01 [...] Oxygen Care Therapy Treatment Form completed Carolyn ulan BERNAL - [facility] 05/22/2025 12:33:28 05/21/20 25 [facility] Therapy Treatment Form completed Carolyn roland [place] - [facility] 05/21/2025 12:47:49 05/20/20 25 Wound completed COLEMAN JASBIR, MAJOR CASE DETECTIVE [place] - [facility] 05/20/2025 13:22:44 [...] Mary Riveroer [place] - [facility] 05/06/2025 12:30:26 05/04/20 25 [facility] Therapy Treatment Form completed Carolyn roland [place] - [facility] 05/04/2025 12:48:46 05/01/20 25 [facility] Therapy Treatment Form completed Mary Miranda [place] - [facility] 05/01/2025 12:20:36 04/30/20 25 [facility] Therapy Treatment Form completed COLEMAN LAU ABDOULAYE [place] - [facility] 04/30/2025 14:18:39 [...] Not available Not available Not available 04/23/2025 26505 3 RxNorm Luciana servin, DOLORES - [facility] 14:25:27 1104 Avelox medicatio n Not available Not available Not available 04/23/2025 81797 6 RxNorm Luciana servin, [place] - [facility] 14:25:52 1105 metformin medicatio n other Not available low 04/23/20252023 6809 RxNorm GI issue DOLORES [place] - [facility] 14:26:11 1253 Product containin g angiotens in-conver ting enzyme inhibitor (product) medicatio n cough moderate Not available 06/26/2025 22186 009 SNOMED Not Available taisha - External Data Service - prod 10:54:20 1254 metformin hydrochlo ride medicatio n Not available Not available Not available 06/26/2025 05607 3 RxNorm Not Available taisha - External [...] Address Organization Details Last Updated DateTime 5 89 /min 16 /min 98.2 [degF] 87 % 87 % 67 /min 16 /min 98.1 [degF] 94 % 94 % 166/88 mm[Hg] 165/88 mm[Hg] Carolyn roland [place] - [facility] 5 12:46:08 Social History None recorded. Functional Status None [...] ICD10 Code Diagnosis IMO Codes Diagnosis Note [id number] Manfred Shelton MD Main Office [address] [place] [address] 05/18/2025 10:59:56 05/18/2025 15:48:37 Type 2 diabetes mellitus 04245038 E11.69 [id number] [id number] Manfred Shelton MD Main Office [address] [place] [address] 05/19/2025 11:07:27 05/19/2025 14:52:31 5002 Manfred Shelton MD Main Office [address] [place] [address] 05/20/2025 11:36:16 05/20/2025 13:20:26 5003 Manfred Shelton MD Main Office [address] [place] [address] 05/20/2025 12:28:38 05/20/2025 13:24:07 5019 Manfred Shelton MD Main Office [address] [place] [address] 05/21/2025 10:14:02 05/22/2025 08:40:53 5034 Manfred Shelton MD Main Office [address] [place] [address] 05/22/2025 10:05:00 05/22/2025 14:31:52 5054 COLEMAN LAU NP Main Office [address] [place] [address] 05/25/2025 10:54:17 05/25/2025 14:23:41 5071 COLEMAN LAU NP Main Office [address] [place] [address] 05/26/2025 10:04:52 05/26/2025 13:22:24 5083 COLEMAN JASBIR, MAJOR CASE DETECTIVE Main Office [address] [place] [address] 05/26/2025 16:38:48 05/26/2025 16:40:45 5087 COLEMAN LAU, MAJOR CASE DETECTIVE Main Office [address] [place] [address] 05/27/2025 10:11:43 05/27/2025 13:22:20 5093 COLEMAN LAU, MAJOR CASE DETECTIVE Main Office [address] [place] [address] 05/27/2025 13:11:38 05/27/2025 13:19:10 5104 Manfred Shelton MD Main Office [address] [place] [address] 05/28/2025 10:14:13 05/29/2025 08:47:13 5117 Manfred Shelton MD Main Office [address] [place] [address] 05/29/2025 10:04:58 05/29/2025 17:43:48 5132 Manfred Shelton MD Main Office [address] [place] [address] 06/02/2025 10:25:50 06/02/2025 14:14:27 5149 Manfred Shelton MD Main Office [address] [place] [address] 06/03/2025 10:16:52 06/03/2025 14:45:20 5163 Manfred Shelton MD Main Office [address] [place] [address] 06/04/2025 10:31:23 06/04/2025 13:58:07 5173 Manfred Shelton MD Main Office [address] [place] [address] 06/04/2025 14:13:52 06/04/2025 14:25:08 5186 Manfred Shelton MD Main Office [address] [place] [address] 06/05/2025 10:55:07 06/05/2025 16:50:44 5202 Manfred Shelton MD Main Office [address] [place] [address] 06/08/2025 10:25:37 06/08/2025 14:39:12 5237 Manfred Shelton MD Main Office [address] [place] [address] 06/10/2025 10:19:13 06/10/2025 13:21:20 5255 Manfred Shelton MD Main Office [address] [place] [address] 06/11/2025 10:35:04 06/11/2025 14:11:07 5277 Manfred Shelton MD Main Office [address] [place] [address] 06/12/2025 10:59:45 06/12/2025 14:56:49 5293 Manfred Shelton MD Main Office [address] [place] [address] 06/15/2025 10:50:33 06/15/2025 13:14:21 5311 Manfred Shelton MD Main Office [address] [place] [address] 06/16/2025 10:14:56 06/16/2025 13:52:36 Health Concerns Section Related Observation LastModified by Organization Detai ls LastModified Time None Recorded Concern Status LastModified by Organization Details LastModified Time None Recorded Payers Encounter Date Sequence Insurance Name Policy Number Policy Gonzales Covered Member ID Gonzales Member ID Guarantor Name 06/16/2025 2 [employer] Seema Delacruz [id number] Seema Delacruz 06/16/2025 1 [employer] Seema Delacruz [id number] Seema Delacruz OBGyn Episode No OBEpisode recorded.
--- OUTSIDE RECORDS SUMMARY | 2025-07-06 16:05 | XMS_ITS | Continuity of Care Document ---
Author Organization [place] [facility], Main Office Address [address] [place] [address] Care Team Providers Care Senior Interaction Designer Name Role Phone STEPHY YUSUF Primary Care [...] Modified By Organization Details Last Modified Time 05/20/2025 1206 BACKGROUND: Seema Delacruz is a 55 y.o. [...] E11.621 ___ ___ Session Notes: Today's Date [id number] HBOT session 15 of 40 Next HBOT [id number] 30Jul - Patient cleared for 1st HBOT [...] her wear ear plugs during treatment. Nicolasa [facility] CHIE[facility] 31July - Patient cleared for HBOT today. [...] full session with no problem. [place].Jessica Lau [facility] CHIEF 04Aug - Patient deemed safe for HBOT today. VS stable. Patient completed full session with no problem. Antoinette Lau [facility] CHIEF 05Aug - patient out for another appt. [...] antibiotics for an upper respiratory infection. Nicolasa [facility] CHIEF 07Aug- Patient cleared for HBOT today. VS stable. PAtient had little trouble reaching pressure today, but had to come out of chamber early due to needing to use restroom. She managed to do 4 segs-118 minutes. [place].Tanner [facility] CHIEF 08Aug - Patient cleared for HBOT today. VS stable. Patient completed full session with no problem. Antoinette Lau [facility] CHIEF 11Aug - Patient cleared for HBOT today. [...] full session with no problem. Antoinette Lau [facility] CHIEF 13Aug - Patient cleared for HBOT today. VS stable. Patient completed full session with no problem. Wound care to follow treatment today. Antoinette Lau [facility] CHIEF 14Aug - Patient cleared for HBOT today. VS stable. Patient completed full session with no problem. Antoinette Lau [facility] CHIEF 15Aug - Patient cleared for HBOT today. [...] attempt to try again on Sunday. Nicolasa [facility] CHIEF 18Aug - Patient cleared for HBOT today. VS stable. Patient completed full session with no problem. Antoinette Lau [facility] CHIEF 19Aug - Patient deemed safe for HBOT today. VS stable. FSBS within range. Patient completed full session with no problem. Antoinette Lau [facility] CHIEF 2015Aug - Patient cleared for HBOT today. VS stable. Soon after reaching pressure, patient states that she is having anxiety, and wants to come out of chamber. We tried turning down pressure, and giving an air break, but she still insist on coming out. We brought her out, VS stable, wound care done. Nicolasa [facility] CHIEF Not available 05/20/2025 13:20:22 Reason for Referral None Reported. Problems Name Problem SNOMED Code Status Onset Date Resolution Date Notes Provider Name and Address Organization Details Recorded Time Upper respiratory infection 83577403 Active 2024 COLEMAN LAU NP null, [place] - [facility] 12:18:40 Episodic migraine 6659167756863 Active 2024 COLEMAN LAU NP null, [place] - [facility] 12:34:01 Type 2 diabetes mellitus 06994309 Active 2024 COLEMAN LAU NP null, [place] - [facility] 15:27:12 Refractory migraine with aura 598110874 Active 2024 COLEMAN LAU NP null, [place] - [facility] 10:56:52 Problem Notes None recorded. Procedures Surgical History Date Name Laterality Status Provider Name and Address Organization Details Recorded Time 07/06/20 [facility] Therapy Treatment Form completed Carolyn roland [place] - [facility] 07/06/2025 13:06:29 07/03/20 25 [facility] Therapy Treatment Form completed Paula Licea [place] - [facility] 07/03/2025 12:47:29 07/02/20 25 [facility] Therapy Treatment Form completed Paula Licea [place] [facility] 07/02/2025 13:06:39 07/01/20 25 [facility] Therapy Treatment Form completed Paula Licea [place] [facility] 07/01/2025 13:05:37 06/30/20 25 [facility] Therapy Treatment Form completed COLEMAN LAU NP [place] - [facility] 06/30/2025 13:46:12 06/29/20 25 [facility] Therapy Treatment Form completed Carolyn roland [place] - [facility] 06/29/2025 13:24:58 06/26/20 25 [facility] Therapy Treatment Form completed Manfred Shelton MD [place] - [facility] 06/26/2025 16:57:55 06/25/20 25 [facility] Therapy Treatment Form completed [facility] - [facility] 06/25/2025 12:47:07 06/24/20 25 [facility] Therapy Treatment Form completed [facility] - [facility] 06/24/2025 12:40:20 06/23/20 25 [facility] Therapy Treatment Form completed [facility] - [facility] 06/23/2025 12:39:50 06/22/20 25 [facility] Therapy Treatment Form completed [facility] - [facility] 06/22/2025 12:49:55 06/19/20 25 [facility] Therapy Treatment Form completed Manfred Shelton MD [place] [facility] 06/19/2025 14:13:24 06/18/20 25 [facility] Therapy Treatment Form completed COLEMAN LAU NP [place] - [facility] 06/18/2025 13:17:34 06/17/20 25 [facility] Therapy Treatment Form completed [facility] - [facility] 06/17/2025 12:29:15 06/16/20 25 [facility] Therapy Treatment Form completed [facility] - [facility] 06/16/2025 12:45:53 06/15/20 25 [facility] Therapy Treatment Form completed [facility] - [facility] 06/15/2025 12:47:07 06/12/20 25 [facility] Therapy Treatment Form completed Manfred Shelton MD [place] [facility] 06/12/2025 14:54:52 06/11/20 25 [facility] Therapy Treatment Form completed [facility] - [facility] 06/11/2025 13:02:39 06/10/20 25 [facility] Therapy Treatment Form completed [facility] - [facility] 06/10/2025 12:50:18 06/08/20 25 [facility] Therapy Treatment Form completed [facility] - [facility] 06/08/2025 12:56:07 06/05/20 25 [facility] Therapy Treatment Form completed Evelia Winters [place] - [facility] 06/05/2025 14:28:16 06/04/20 [...] Not available Not available Not available 04/23/2025 70445 3 RxNorm Luciana servin, [place] - [facility] 14:25:27 1104 Avelox medicatio n Not available Not available Not available 04/23/2025 05950 6 RxNorm Luciana servin, [place] - [facility] 14:25:52 1105 metformin medicatio n other Not available [facility] 04/23/20252023 6809 RxNorm GI issue s Luciana Noriega null, [place] - [facility] 14:26:11 1253 Product containin g angiotens in-conver ting enzyme inhibitor (product) medicatio n cough moderate Not available 06/26/2025 81897 009 SNOMED Not Available taisha - [employer] - prod 5 10:54:20 1254 metformin hydrochlo ride medicatio n Not available Not available Not available 06/26/2025 51155 3 RxNorm Not Available [employer] - prod 10:54:20 Medications Name [...] Address Organization Details Last Updated DateTime 5 83 /min 16 /min 96.9 [degF] 90 % 90 % 160/91 mm[Hg] COLEMAN LAU NP [place] - [facility] 5 13:20:55 Date Recorded Heart rate Respiratory rate Body temperature Oxygen saturation Oxygen saturation in Arterial blood by Pulse oximetry Heart rate Respiratory rate Body temperature Oxygen saturation Oxygen saturation in Arterial blood by Pulse oximetry Systolic And Diastolic Systolic And Diastolic Provider Name and Address Organization Details Last Updated DateTime 5 81 /min 16 /min 97 [degF] 93 % 93 % 83 /min 16 /min 96.9 [degF] 90 % 90 % 169/79 mm[Hg] 160/91 mm[Hg] Moraima Moses [place] - [facility] 5 12:51:13 Social History None recorded. Functional Status None [...] Office [address] [place] [id number] 04/23/2025 14:15:51 04/24/2025 12:51:54 [id number] Manfred Shelton MD Main Office [address] [place] [id number] 04/29/2025 10:50:02 04/29/2025 15:41:17 [id number] Manfred Shelton MD Main Office [address] [place] [id number] 04/30/2025 11:16:06 04/30/2025 14:19:33 [id number] Manfred Shelton MD Main Office [address] [place] [id number] 05/01/2025 10:18:55 05/01/2025 13:10:41 [id number] Manfred Shelton MD Main Office [address] [place] [id number] 05/04/2025 10:46:48 05/04/2025 14:18:05 [id number] Manfred Shelton MD Main Office [address] [place] [id number] 05/06/2025 10:55:59 05/06/2025 11:32:38 [id number] Manfred Shelton MD Main Office [address] [place] [id number] 05/06/2025 13:04:28 05/07/2025 08:30:09 [id number] Manfred Shelton MD Main Office [address] [place] [id number] 05/07/2025 10:45:55 05/08/2025 10:40:32 [id number] Manfred Shelton MD Main Office [address] [place] [id number] 05/08/2025 10:55:11 05/08/2025 14:31:10 [id number] Manfred Shelton MD Main Office [address] [place] [id number] 05/08/2025 13:08:42 05/08/2025 14:13:22 [id number] Manfred Shelton MD Main Office [address] [place] [id number] 05/11/2025 10:59:55 05/11/2025 14:43:45 Type 2 diabetes mellitus 55680687 E11.69 [id number] Manfred Shelton MD Main Office [address] [place] [id number] 05/12/2025 10:58:25 05/12/2025 16:06:58 [id number] Manfred Shelton MD Main Office [address] [place] [id number] 05/13/2025 10:26:11 05/13/2025 14:22:52 Type 2 diabetes mellitus 46235550 E11.69 [id number] Manfred Shelton MD Main Office [address] [place] [id number] 05/13/2025 13:16:44 05/13/2025 14:39:17 [id number] Manfred Shelton MD Main Office [address] [place] [id number] 05/14/2025 10:20:17 05/14/2025 16:02:14 [id number] Manfred Shelton MD Main Office [address] [place] [id number] 05/15/2025 10:48:13 05/18/2025 08:48:44 [id number] Manfred Shelton MD Main Office [address] [place] , [place] [id number] 05/18/2025 10:59:56 05/18/2025 15:48:37 Type 2 diabetes mellitus 37826163 E11.69 [id number] Manfred Shelton MD Main Office [address] [place] [id number] 05/19/2025 11:07:27 05/19/2025 14:52:31 [id number] Manfred Shelton MD Main Office [address] [place] [address] 05/20/2025 11:36:16 05/20/2025 13:20:26 [id number] Manfred Shelton MD Main Office [address] [place] [address] 05/20/2025 12:28:38 05/20/2025 13:24:07 Health Concerns Section Related Observation LastModified by Organization Detai ls LastModified Time None Recorded Concern Status LastModified by Organization Details LastModified Time None Recorded Payers Encounter Date Sequence Insurance Name Policy Number Policy Gonzales Covered Member ID Gonzales Member ID Guarantor Name 05/20/2025 2 [employer] Seema Delacruz [id number] Seema Delacruz 05/20/2025 1 [employer] Seema Delacruz [id number] Seema Delacruz Notes Date Note Type Note Provider Name and Address Organization Details Recorded Time text/html Seema Delacruz is a 55 y.o. [...] NP null, [place] - [facility] 05/20/2025 13:24:06 OBGyn Episode No OBEpisode recorded.
--- OUTSIDE RECORDS SUMMARY | 2025-07-06 16:05 | XMS_ITS | Continuity of Care Document ---
Author Organization [place] [facility], Main Office Address [address] [place] [address] Care Team Providers Care Surgical Instrument Mechanic Name Role Phone STEPHY YUSUF Primary Care [...] Not available Not available Not available Hyperb jluio Therap [id number]-120 2024 10:30A M [facility] [...] Modified By Organization Details Last Modified Time 05/27/2025 0697 BACKGROUND: Seema Delacruz is a 55 y.o. [...] E11.621 ___ ___ Session Notes: Today's Date [id number] HBOT session 40 Next HBOT [id number] 30Jul - Patient cleared for 1st HBOT [...] her wear ear plugs during treatment. Nicolasa [employer]ULT[employer] 31July - Patient cleared for HBOT today. [...] slightly red, but she was asymptomatic. [place].Tanner [employer]ANT 01Aug - Patient deemed safe for HBOT today. VS stable. Patient completed full session with no problem. [place].Jessica Lau [employer]ANT 04Aug - Patient deemed safe for HBOT today. VS stable. Patient completed full session with no problem. Antoinette Lau [employer] 05Aug - patient out for another appt. [...] antibiotics for an upper respiratory infection. Nicolasa [employer] CONSULTANT 07Aug- Patient cleared for HBOT today. VS stable. PAtient had little trouble reaching pressure today, but had to come out of chamber early due to needing to use restroom. She managed to do 4 segs-118 minutes. [place].Tanner [employer] CONSULTANT 08Aug - Patient cleared for HBOT today. VS stable. Patient completed full session with no problem. Antoinette Lau [employer] CONSULTANT 11Aug - Patient cleared for HBOT today. [...] full session with no problem. Antoinette Lau [employer] CONSULTANT 13Aug - Patient cleared for HBOT today. VS stable. Patient completed full session with no problem. Wound care to follow treatment today. Antoinette Lau [employer] CONS[employer]ANT 14Aug - Patient cleared for HBOT today. VS stable. Patient completed full session with no problem. Antoinette Lau [employer] CONSULTANT 15Aug - Patient cleared for HBOT today. [...] attempt to try again on Sunday. Nicolasa [employer] CONSULTANT 18Aug - Patient cleared for HBOT today. VS stable. Patient completed full session with no problem. Antoinette Lau [employer] CONSULTANT 19Aug - Patient deemed safe for HBOT today. VS stable. FSBS within range. Patient completed full session with no problem. Antoinette Lau [employer] CONSULTANT 2015Aug - Patient cleared for HBOT today. VS stable. Soon after reaching pressure, patient states that she is having anxiety, and wants to come out of chamber. We tried turning down pressure, and giving an air break, but she still insist on coming out. We brought her out, VS stable, wound care done. IsraelCarlo [employer] CONSULTANT 21Aug - Patient deemed safe for HBOT today. VS stable. FSBS within range. Patient completed full session with no problem. Patient better tolerated treatment today in larger chamber with no reports of anxiety during treatment. Antoinette Lau APRN 22Aug - Cleared for HBOT this date and did complete full session with no problem including no significant anxiety. Dressing change today per nursing. [facility] 25Aug - Patient deemed safe for HBOT today. VS stable. Patient completed full session with no problem. Antoinette Lau APRN 26Aug - Patient cleared for HBOT today. VS stable. Patient completed full session with no problem. I spoke with patient, and she feels much better in the larger chamber, having almost no anxiety at all now. Antoinette Lau [employer] 27Aug - Patient deemed safe for HBOT today. VS stable. FSBS within range. Patient completed full session with no problem. Antoinette Lau APRN Not available 05/27/2025 13:22:15 Reason for Referral None Reported. Problems Name Problem SNOMED Code Status Onset Date Resolution Date Notes Provider Name and Address Organization Details Recorded Time Upper respiratory infection 03391400 Active 2024 ABDOULAYE HAQ, [place] - [facility] 12:18:40 Episodic migraine 5233454687121 Active 2024 COLEMAN LAU NP null, [place] - [facility] 5 12:34:01 Type 2 diabetes mellitus 56048328 Active 2024 ABDOULAYE HAQ, [place] - [facility] 15:27:12 Refractory migraine with aura 805156299 Active 2024 ABDOULAYE HAQ, [place] - [facility] 10:56:52 Problem Notes None recorded. Procedures Surgical History Date Name Laterality Status Provider Name and Address Organization Details Recorded Time 07/06/20 25 [facility] Therapy Treatment Form completed Carolyn BERNAL - [facility] 07/06/2025 13:06:29 07/03/20 25 [facility] Therapy Treatment Form completed Paula Licea [place] - [facility] 07/03/2025 12:47:29 07/02/20 25 [facility] Therapy Treatment Form completed Paula Licea [place] - [facility] 07/02/2025 13:06:39 07/01/20 25 [facility] Therapy Treatment Form completed Paula Licea [place] - [facility] 07/01/2025 13:05:37 06/30/20 25 [facility] Therapy Treatment Form completed COLEMAN LAU NP [place] - [facility] 06/30/2025 13:46:12 06/29/20 25 [facility] Therapy Treatment Form completed [facility] - [facility] 06/29/2025 13:24:58 06/26/20 25 [facility] Therapy Treatment Form completed Manfred Shelton MD [place] - [facility] 06/26/2025 16:57:55 06/25/20 25 [facility] Therapy Treatment Form completed [facility] - [facility] 06/25/2025 12:47:07 06/24/20 25 [facility] Therapy Treatment Form completed [facility] - [facility] 06/24/2025 12:40:20 06/23/20 25 [facility] Therapy Treatment Form completed [facility] - [facility] 06/23/2025 12:39:50 06/22/20 25 [facility] Therapy Treatment Form completed [facility] - [facility] 06/22/2025 12:49:55 06/19/20 25 [facility] Therapy Treatment Form completed Manfred Shelton MD [place] - [facility] 06/19/2025 14:13:24 06/18/20 25 [facility] Therapy Treatment Form completed COLEMAN LAU NP [place] - [facility] 06/18/2025 13:17:34 06/17/20 25 [facility] Therapy Treatment Form completed [facility] - [facility] 06/17/2025 12:29:15 06/16/20 25 [facility] Therapy Treatment Form completed [facility] - [facility] 06/16/2025 12:45:53 06/15/20 25 [facility] Therapy Treatment Form completed [facility] 06/15/2025 12:47:07 09/12/20 25 [facility] Therapy Treatment Form completed Manfred Shelton MD [place] - [facility] 06/12/2025 14:54:52 06/11/20 25 [facility] Therapy Treatment Form completed [facility] - [facility] 06/11/2025 13:02:39 06/10/20 25 [facility] Therapy Treatment Form completed [facility] - [facility] 06/10/2025 12:50:18 06/08/20 25 [facility] Therapy Treatment Form completed [facility] - [facility] 06/08/2025 12:56:07 06/05/20 25 [facility] Therapy Treatment Form completed Eveliapatricia Winters [place] - [facility] 06/05/2025 14:28:16 06/04/20 25 Wound completed COLEMAN LAU NP [place] - [facility] 06/04/2025 14:24:29 06/04/20 25 [facility] Therapy Treatment Form completed COLEMAN LAU NP [place] - [facility] 06/04/2025 13:56:49 06/03/20 25 [facility] Therapy Treatment Form completed Eveliapatricia Winters [place] - [facility] 06/03/2025 14:11:11 06/02/20 25 [facility] Therapy Treatment Form completed [facility] - [facility] 06/02/2025 13:09:37 05/29/20 25 [facility] Therapy Treatment Form completed [facility] - [facility] 05/29/2025 12:25:31 05/28/20 25 [facility] Therapy Treatment Form completed [facility] - [facility] 05/28/2025 13:02:44 05/27/20 25 Wound completed COLEMAN LAU NP [place] - [facility] 05/27/2025 13:18:22 05/27/20 25 [facility] Therapy Treatment Form completed [facility] - [facility] 05/27/2025 12:50:01 05/26/20 25 Nurse Note completed Luciana Noriega [place] [facility] 05/26/2025 16:40:42 05/26/20 25 [facility] Therapy Treatment Form completed [facility] - [facility] 05/26/2025 12:27:56 05/25/20 25 [facility] Therapy Treatment Form completed Carolyn sharp [place] - [facility] 05/25/2025 13:12:32 [...] Care Therapy Treatment Form completed Mary Riveroer [place] - [facility] 05/15/2025 14:10:27 05/15/20 25 [facility] Additional Air Breaks Therapy Treatment Form completed Mary Riveroer [place] - [facility] 05/15/2025 14:17:22 05/14/20 25 [facility] Therapy Treatment Form completed Mary Riveroer [place] - [facility] 05/14/2025 13:46:28 [...] Not available Not available Not available 04/23/2025 64087 3 RxNorm Luciana servin, [place] - [facility] 14:25:27 1104 Avelox medicatio n Not available Not available Not available 04/23/2025 19774 6 RxNorm Luciana servin, [place] - [facility] 5 14:25:52 1105 metformin medicatio n other Not available low 04/23/20252023 6809 RxNorm GI issue s Luciana servin, [place] - [facility] 14:26:11 1253 Product containin g angiotens in-conver ting enzyme inhibitor (product) medicatio n cough moderate Not available 06/26/2025 76085 009 SNOMED Not Available taisha - External Data Service - prod 10:54:20 1254 metformin hydrochlo ride medicatio n Not available Not available Not available 06/26/2025 35156 3 RxNorm Not Available taisha - External [...] Address Organization Details Last Updated DateTime 5 71 /min 16 /min 97.9 [degF] 94 % 94 % 152/84 mm[Hg] COLEMAN LAU NP [place] - [facility] 5 13:14:39 Date Recorded Heart rate Respiratory rate Body temperature Oxygen saturation Oxygen saturation in Arterial blood by Pulse oximetry Heart rate Respiratory rate Body temperature Oxygen saturation Oxygen saturation in Arterial blood by Pulse oximetry Systolic And Diastolic Systolic And Diastolic Provider Name and Address Organization Details Last Updated DateTime 5 77 /min 16 /min 97.7 [degF] 89 % 89 % 71 /min 16 /min 97.9 [degF] 94 % 94 % 159/75 mm[Hg] 152/84 mm[Hg] [facility] - [facility] 12:50:15 Social History None recorded. Functional Status None [...] ICD10 Code Diagnosis IMO Codes Diagnosis Note [id number] Manfred Shelton MD Main Office [address] [place] [address] 04/29/2025 10:50:02 04/29/2025 15:41:17 [id number] Manfred Shelton MD Main Office [address],[facility] [address] [place] [address] 04/30/2025 11:16:06 04/30/2025 14:19:33 [id number] Manfred Shelton MD Main Office [address],[facility] [address] [place] [address] 05/01/2025 10:18:55 05/01/2025 13:10:41 [id number] Manfred Shelton MD Main Office [address],[facility] [address] [place] [address] 05/04/2025 10:46:48 05/04/2025 14:18:05 [id number] Manfred Shelton MD Main Office [address],[facility] [address] [place] [address] 05/06/2025 10:55:59 05/06/2025 11:32:38 [id number] Manfred Shelton MD Main Office [address] [place] [address] 05/06/2025 13:04:28 05/07/2025 08:30:09 [id number] Manfred Shelton MD Main Office [address] [place] [address] 05/07/2025 10:45:55 05/08/2025 10:40:32 [id number] Manfred Shelton MD Main Office [address] [place] [address] 05/08/2025 10:55:11 05/08/2025 14:31:10 [id number] Manfred Shelton MD Main Office [address] [place] [address] 05/08/2025 13:08:42 05/08/2025 14:13:22 [id number] Manfred Shelton MD Main Office [address] [place] [address] 05/11/2025 10:59:55 05/11/2025 14:43:45 Type 2 diabetes mellitus 06367006 E11.69 [id number] Manfred Shelton MD Main Office [address] [place] [address] 05/12/2025 10:58:25 05/12/2025 16:06:58 [id number] Manfred Shelton MD Main Office [address] [place] [address] 05/13/2025 10:26:11 05/13/2025 14:22:52 Type 2 diabetes mellitus 06491545 E11.69 [id number] Manfred Shelton MD Main Office [address] [place] [address] 05/13/2025 13:16:44 05/13/2025 14:39:17 [id number] Manfred Shelton MD Main Office [address] [place] [address] 05/14/2025 10:20:17 05/14/2025 16:02:14 [id number] Manfred Shelton MD Main Office [address] [place] [address] 05/15/2025 10:48:13 05/18/2025 08:48:44 [id number] Manfred Shelton MD Main Office [address] [place] [address] 05/18/2025 10:59:56 05/18/2025 15:48:37 Type 2 diabetes mellitus 21329970 E11.69 [id number] Manfred Shelton MD Main Office [address] [place] [address] 05/19/2025 11:07:27 05/19/2025 14:52:31 [id number] Manfred Shelton MD Main Office [address] [place] [address] 05/20/2025 11:36:16 05/20/2025 13:20:26 [id number] Manfred Shelton MD Main Office [address] [place] [address] 05/20/2025 12:28:38 05/20/2025 13:24:07 [id number] Manfred Shelton MD Main Office [address] [place] [address] 05/21/2025 10:14:02 05/22/2025 08:40:53 [id number] Manfred Shelton MD Main Office [address] [place] [address] 05/22/2025 10:05:00 05/22/2025 14:31:52 [id number] COLEMAN LAU, [employer] Main Office [address] [place] [address] 05/25/2025 10:54:17 05/25/2025 14:23:41 [id number] COLEMAN LAU, [employer] Main Office [address] [place] [address] 05/26/2025 10:04:52 05/26/2025 13:22:24 5083 COLEMAN LAU NP Main Office [address] [place] [address] 05/26/2025 16:38:48 05/26/2025 16:40:45 [id number] COLEMAN LAU NP Main Office [address] [place] [address] 05/27/2025 10:11:43 05/27/2025 13:22:20 5093 COLEMAN LAU NP Main Office [address] [place] [address] 05/27/2025 13:11:38 05/27/2025 13:19:10 Health Concerns Section Related Observation LastModified by Organization Detai ls LastModified Time None Recorded Concern Status LastModified by Organization Details LastModified Time None Recorded Payers Encounter Date Sequence Insurance Name Policy Number Policy Gonzales Covered Member ID Gonzales Member ID Guarantor Name 05/27/2025 2 [employer] Seema Delacruz [id number] Seema Delacruz 05/27/2025 1 [employer] Seema Delacruz [id number] Seema Delacruz Notes Date Note Type Note [...] NP null, [place] - [facility] 05/27/2025 13:19:08 OBGyn Episode No OBEpisode recorded.
--- OUTSIDE RECORDS SUMMARY | 2025-07-06 16:06 | XMS_ITS | Continuity of Care Document ---
Author Organization [place] [facility], Main Office Address [address] [place] [address] Care Team Providers Care Digital Account Executive Name Role Phone STEPHY YUSUF Primary Care [...] Modified By Organization Details Last Modified Time 06/04/2025 6598 BACKGROUND: Seema Delacruz is a 55 y.o. [...] E11.621 ___ ___ Session Notes: Today's Date 04Jun2025 HBOT session 24 40 Next HBOT [id number] 30Jul - Patient cleared for 1st HBOT [...] slightly red, but she was asymptomatic. [place].Tanner SILVA 01Aug - Patient deemed safe for HBOT today. VS stable. Patient completed full session with no problem. [place].Jessica Lau TRANSFORMER [employer] SUPERVISOR 04Aug - Patient deemed safe for HBOT [...] antibiotics for an upper respiratory infection. Nicolasa TRANSFORMER SHOP SUPERVISOR 07Aug- Patient cleared for HBOT today. VS stable. PAtient had little trouble reaching pressure today, but had to come out of chamber early due to needing to use restroom. She managed to do 4 segs-118 minutes. [place].Tanner TRANSFORMER SHOP SUPERVISOR 08Aug - Patient cleared for HBOT today. VS stable. Patient completed full session with no problem. Antoinette Lau TRANSFORMER SHOP SUPERVISOR 11Aug - Patient cleared for HBOT today. [...] full session with no problem. Antoinette Lau TRANSFORMER SH[employer] SUPERVISOR 13Aug - Patient cleared for HBOT today. VS stable. Patient completed full session with no problem. Wound care to follow treatment today. Antoinette Lau TRANSFORMER [employer] SUPERVISOR 14Aug - Patient cleared for HBOT today. VS stable. Patient completed full session with no problem. Antoinette Lau TRANSFORMER [employer] SUPERVISOR 15Aug - Patient cleared for HBOT today. [...] attempt to try again on Sunday. Nicolasa TRANSFORMER SHOP SUPERVISOR 18Aug - Patient cleared for HBOT today. VS stable. Patient completed full session with no problem. Antoinette Lau TRANSFORMER SHOP SUPERVISOR 19Aug - Patient deemed safe for HBOT today. VS stable. FSBS within range. Patient completed full session with no problem. Antoinette Lau TRANSFORMER [employer]OP SUPERVISOR 2015Aug - Patient cleared for HBOT today. [...] significant anxiety. Dressing change today per nursing. [facility] 25Aug - Patient deemed safe for HBOT [...] date andcompleted full session free of problem. [facility] 29Aug - Cleared for HBOT his date and completed full session free of problem. Of note, this patient continues to smoke tobacco cigarettes. [facility] 02Sep - Patient deemed safe for HBOT [...] for about 15/20 minutes before getting up. Anotinette Lau APRN Not available 06/04/2025 13:57:51 Reason for Referral None Reported. Problems Name Problem SNOMED Code Status Onset Date Resolution Date Notes Provider Name and Address Organization Details Recorded Time Upper respiratory infection 91562282 Active 2024 COLEMAN LAU NP null, [place] - [facility] 12:18:40 Episodic migraine 2980827464643 Active 2024 COLEMAN LAU NP null, [place] [facility] 12:34:01 Type 2 diabetes mellitus 77469689 Active 2024 COLEMAN LAU NP null, [place] [facility] 15:27:12 Refractory migraine with aura 627075500 Active 2024 COLEMAN LAU NP null, [place] [...] Care Therapy Treatment Form completed Paulajuancarlos Licea [place] - [facility] 07/01/2025 13:05:37 06/30/20 25 [facility] Therapy Treatment Form completed COLEMAN LAU NP [place] [facility] 06/30/2025 13:46:12 06/29/20 25 [facility] Therapy Treatment Form completed [facility] - [facility] 06/29/2025 13:24:58 06/26/20 25 [facility] Therapy Treatment Form completed Manfred Shelton MD [place] - [facility] 06/26/2025 16:57:55 06/25/20 25 [facility] Therapy Treatment Form completed Carolyn luan [place] - [facility] 06/25/2025 12:47:07 06/24/20 25 [facility] Therapy Treatment Form completed [facility] - [facility] 06/24/2025 12:40:20 06/23/20 25 [facility] Therapy Treatment Form completed [facility] - [facility] 06/23/2025 12:39:50 06/22/20 25 [facility] Therapy Treatment Form completed [facility] - [facility] 06/22/2025 12:49:55 06/19/20 25 [facility] Therapy Treatment Form completed Manfred Shelton [place] [facility] 06/19/2025 14:13:24 06/18/20 25 [facility] Therapy Treatment Form completed COLEMAN LAU NP [place] [facility] 06/18/2025 13:17:34 06/17/20 25 [facility] Therapy Treatment Form completed [facility] - [facility] 06/17/2025 12:29:15 06/16/20 25 [facility] Therapy Treatment Form completed [facility] - [facility] 06/16/2025 12:45:53 06/15/20 25 [facility] Therapy Treatment Form completed [facility] - [facility] 06/15/2025 12:47:07 06/12/20 25 [facility] Therapy Treatment Form completed Manfred Shelton MD [place] - [facility] 06/12/2025 14:54:52 06/11/20 25 [facility] Therapy Treatment Form completed [facility] - [facility] 06/11/2025 13:02:39 06/10/20 25 [facility] Therapy Treatment Form completed [facility] - [facility] 06/10/2025 12:50:18 06/08/20 25 [facility] Therapy Treatment Form completed [facility] - [facility] 06/08/2025 12:56:07 06/05/20 25 [facility] Therapy Treatment Form completed Eveliapatricia Winters [place] - [facility] 06/05/2025 [...] [facility] Therapy Treatment Form completed [facility] - [facility] 06/02/2025 13:09:37 05/29/20 25 [facility] Therapy Treatment Form completed [facility] - [facility] 05/29/2025 12:25:31 [...] Carolyn roland [place] - [facility] 05/25/2025 13:12:32 05/22/20 [...] 04/29/2025 13:00:12 Knee Replacement completed Luciana Noriega [place] - [facility] 04/23/2025 14:32:38 procedure on integumentary system completed Luciana Noriega [place] - [facility] 04/23/2025 14:33:00 cataract surgery completed Luciana Nroiega [place] - [facility] 04/23/2025 14:33:07 amputation of toe completed Luciana Noriega [place] - [facility] 04/23/2025 14:33:26 Imaging [...] available 04/23/2025 9449 RxNorm Luciana Noriega null, [place] - [facility] 14:25:10 1103 Inapsine medicatio n Not available Not available Not available 04/23/2025 99269 3 RxNorm Luciana servin, [place] - [facility] 14:25:27 1104 Avelox medicatio n Not available Not available Not available 04/23/2025 80997 6 RxNorm Luciana servin, [place] - [facility] 14:25:52 1105 metformin medicatio n other Not available low 04/23/20252023 6809 RxNorm GI issue s Luciana Noriega null, [place] - [facility] 14:26:11 1253 Product containin g angiotens in-conver ting enzyme inhibitor (product) medicatio n cough moderate Not available 06/26/2025 04655 009 SNOMED Not Available [employer] - prod 5 10:54:20 1254 metformin hydrochlo ride medicatio n Not available Not available Not available 06/26/2025 88168 3 RxNorm Not Available [employer] - prod 5 10:54:20 Medications [...] Updated DateTime 5 71 /min 16 /min 98.1 [degF] 97 % 97 % 125/68 mm[Hg] COLEMAN LAU NP [place] [facility] 5 14:23:22 Date Recorded Heart rate Respiratory rate Body temperature Oxygen saturation Oxygen saturation in Arterial blood by Pulse oximetry Heart rate Respiratory rate Body temperature Oxygen saturation Oxygen saturation in Arterial blood by Pulse oximetry Systolic And Diastolic Systolic And Diastolic Provider Name and Address Organization Details Last Updated DateTime 5 81 /min 16 /min 98.6 [degF] 96 % 96 % 71 /min 16 /min 98.1 [degF] 94 % 94 % 150/63 mm[Hg] 125/68 mm[Hg] Carolyn luan [place] - [facility] 5 12:59:11 Social History None recorded. Functional Status None [...] 4729 Manfred Shelton MD Main Office [address] [place] [address] 05/04/2025 10:46:48 05/04/2025 14:18:05 [id number] Manfred Shelton MD Main Office [address] [place] [address] 05/06/2025 10:55:59 05/06/2025 11:32:38 [id number] Manfred Shelton MD Main Office [address] [place] [address] 05/06/2025 13:04:28 05/07/2025 08:30:09 [id number] Manfred Shelton MD Main Office [address] [place] [address] 05/07/2025 10:45:55 05/08/2025 10:40:32 4802 Manfred Shelton MD Main Office [address] [place] [address] 05/08/2025 10:55:11 05/08/2025 14:31:10 [id number] Manfred Shelton MD Main Office [address] [place] [address] 05/08/2025 13:08:42 05/08/2025 14:13:22 [id number] Manfred Shelton MD Main Office [address] [place] [address] 05/11/2025 10:59:55 05/11/2025 14:43:45 Type 2 diabetes mellitus 44230877 E11.69 [id number] Manfred Shelton MD Main Office [address] [place] [address] 05/12/2025 10:58:25 05/12/2025 16:06:58 4891 Manfred Shelton MD Main Office [address] [place] [address] 05/13/2025 10:26:11 05/13/2025 14:22:52 Type 2 diabetes mellitus 36216542 E11.69 [id number] 4894 Manfred Shelton MD Main Office [address] [place] [address] 05/13/2025 13:16:44 05/13/2025 14:39:17 [id number] Manfred Shelton MD Main Office [address] [place] [address] 05/14/2025 10:20:17 05/14/2025 16:02:14 [id number] Manfred Shelton MD Main Office [address] [place] [address] 05/15/2025 10:48:13 05/18/2025 08:48:44 4959 Manfred Shelton MD Main Office [address] [place] [address] 05/18/2025 10:59:56 05/18/2025 15:48:37 Type 2 diabetes mellitus 43061773 E11.69 [id number] [id number] Manfred Shelton MD Main Office [address] [place] [address] 05/19/2025 11:07:27 05/19/2025 14:52:31 5002 Manfred Shelton MD Main Office [address] [place] [address] 05/20/2025 11:36:16 05/20/2025 13:20:26 5003 Manfred Shelton MD Main Office [address] [place] [address] 05/20/2025 12:28:38 05/20/2025 13:24:07 5019 Manfred Shelton MD Main Office [address] [place] [address] 05/21/2025 10:14:02 05/22/2025 08:40:53 [id number] aMnfred Shelton MD Main Office [address] [place] [address] 05/22/2025 10:05:00 05/22/2025 14:31:52 [id number] COLEMAN LAU, DENTAL HYGIENIST Main Office [address] [place] [address] 05/25/2025 10:54:17 05/25/2025 14:23:41 5071 COLEMAN LAU NP Main Office [address] [place] [address] 05/26/2025 10:04:52 05/26/2025 13:22:24 5083 COLEMAN LAU NP Main Office [address] [place] [address] 05/26/2025 16:38:48 05/26/2025 16:40:45 5087 COLEMANPATRICE LAU, DENTAL HYGIENIST Main Office [address] [place] , [place] [address] 05/27/2025 10:11:43 05/27/2025 13:22:20 5093 COLEMAN HOPKINSWOOD, DENTAL HYGIENIST Main Office [address] [place] [address] 05/27/2025 13:11:38 05/27/2025 13:19:10 [id number] Manfred Shelton MD Main Office [address] [place] , [place] [address] 05/28/2025 10:14:13 05/29/2025 08:47:13 [id number] Manfred Shelton MD Main Office [address] [place] , [place] [address] 05/29/2025 10:04:58 05/29/2025 17:43:48 [id number] Manfred Shelton MD Main Office [address] [place] , [place] [address] 06/02/2025 10:25:50 06/02/2025 14:14:27 [id number] Manfred Shelton MD Main Office [address] [place] [address] 06/03/2025 10:16:52 06/03/2025 14:45:20 [id number] Manfred Shelton MD Main Office [address] [place] [address] 06/04/2025 10:31:23 06/04/2025 13:58:07 [id number] Manfred Shelton MD Main Office [address] [place] , [place] [address] 06/04/2025 14:13:52 06/04/2025 14:25:08 Health Concerns Section Related Observation LastModified by Organization Detai ls LastModified Time None Recorded Concern Status LastModified by Organization Details LastModified Time None Recorded Payers Encounter Date Sequence Insurance Name Policy Number Policy Gonzales Covered Member ID Gonzales Member ID Guarantor Name 06/04/2025 2 [facility] Seema Delacruz [id number] Seema Delacruz 06/04/2025 1 SAVANNA Delacruz [id number] Seema Delacruz Notes Date Note Type Note [...] NP null, [place] - [facility] 06/04/2025 14:25:07 OBGyn Episode No OBEpisode recorded.
--- OUTSIDE RECORDS SUMMARY | 2025-07-06 16:06 | XMS_ITS | Continuity of Care Document ---
Author Organization [place] [facility], Main Office Address [address] [place] [address] Care Team Providers Care Pilot Teacher Name Role Phone YUSUF KEYES Primary Care Provider Assessment Encounter Date Assessment Date Assessment LastModified by Organization Details LastModified Time 05/08/2025 05/08/2025 Seema Delacruz is a 55 y.o. female who comes to see us today as a referral from Dr. Ortiz. 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 Patient has lost her HH services, and is unable to change her own dressings. We will assist patient with her wound care needs, and I will also look into Lymphedemia pumps for her. Not available 05/08/2025 14:12:05 Plan of Treatment Reminders Order Date Submit [...] Modified By Organization Details Last Modified Time 05/08/2025 4806 Cleanse wound with NS and gauze. Place silver Alginate to wound, cover with gauze, ABD pad, kerlix, and secure with joan wrap. Change 3 times weekly. Not available 05/08/2025 14:12:07 05/06/2025 - No sharp Debridement today in clinic. We are assisting Dr. Ortiz with the patients wound care. Wound cleansed with NS and gauze, applied silver Alginate, gauze, abd pad, Kerlix, and an joan wrap to secure. I will talk with patient tomorrow about need for dressing supplies. Nicolasa SILVA 05/08/2025 - No sharp Debridement today in clinic. We are assisting Dr. Ortiz with the patients wound care. Wound cleansed with NS and gauze, applied silver Alginate, gauze, abd pad, Kerlix, and an joan wrap to secure. Nicolasa TRAVERTINE INSTALLER Not available 05/08/2025 14:13:17 Reason for Referral None Reported. Problems Name Problem SNOMED Code Status Onset Date Resolution Date Notes Provider Name and Address Organization Details Recorded Time Upper respiratory infection 75373982 Active 2024 COLEMAN [place] NP null, [place] - [facility] 12:18:40 Episodic migraine 6199778534157 Active 2024 COLEMAN [place]TE[place] NP null, [place] [facility] 12:34:01 Type 2 diabetes mellitus 07900088 Active 2024 COLEMAN MARTE[place] NP null, [place] [facility] 15:27:12 Refractory migraine with aura 198643037 Active 2024 COLEMAN MARTE[place] NP null, [place] [...] Paula [place]ice[place] - [facility] 07/03/2025 12:47:29 07/02/20 25 [facility] Therapy Treatment Form completed Paula [place] - [facility] 07/02/2025 13:06:39 07/01/20 25 [facility] Therapy Treatment Form completed Paula Lice[place] - [facility] 07/01/2025 13:05:37 06/30/20 25 [facility] Therapy Treatment Form completed COLEMAN MARTE[place] NP [place] - [facility] 06/30/2025 13:46:12 06/29/20 25 [facility] Therapy Treatment Form completed Carolyn roland [place] - [facility] 06/29/2025 13:24:58 06/26/20 25 [facility] Therapy Treatment Form completed MD [place] - [facility] 06/26/2025 16:57:55 06/25/20 25 [facility] Therapy Treatment Form completed [facility] - [facility] 06/25/2025 12:47:07 06/24/20 25 [facility] Therapy Treatment Form completed [facility] - [facility] 06/24/2025 12:40:20 06/23/20 25 [facility] Therapy Treatment Form completed [facility] - [facility] 06/23/2025 12:39:50 06/22/20 25 [facility] Therapy Treatment Form completed [facility] - [facility] 06/22/2025 12:49:55 06/19/20 25 [facility] Therapy Treatment Form completed Manfred Shelton MD [place] - [facility] 06/19/2025 14:13:24 06/18/20 25 [facility] Therapy Treatment Form completed COLEMAN MARTE[place] NP [place] [facility] 06/18/2025 13:17:34 06/17/20 25 [facility] Therapy Treatment Form completed [facility] - [facility] 06/17/2025 12:29:15 06/16/20 25 [facility] Therapy Treatment Form completed [facility] - [facility] 06/16/2025 12:45:53 06/15/20 25 [facility] Therapy Treatment Form completed [facility] - [facility] 06/15/2025 12:47:07 06/12/20 25 [facility] Therapy Treatment Form completed Manfred Shelton MD [place] [facility] 06/12/2025 14:54:52 06/11/20 25 [facility] Therapy Treatment Form completed [facility] - [facility] 06/11/2025 13:02:39 06/10/20 25 [facility] Therapy Treatment Form completed [facility] - [facility] 06/10/2025 12:50:18 06/08/20 25 [facility] Therapy Treatment Form completed [facility] - [facility] 06/08/2025 12:56:07 [...] Carolyn roland [place] - [facility] 06/02/2025 13:09:37 05/29/20 25 [facility] Therapy Treatment Form completed Carolyn roland [place] [facility] 05/29/2025 12:25:31 05/28/20 25 [facility] Therapy Treatment Form completed Carolyn roland [place] [facility] 05/28/2025 13:02:44 05/27/20 25 Wound completed COLEMAN MARTELL NP [place] - [facility] 05/27/2025 13:18:22 05/27/20 25 [facility] Therapy Treatment Form completed Carolyn roland [place] - [facility] 05/27/2025 12:50:01 05/26/20 25 Nurse Note completed Luciana Noriega [place] [facility] 05/26/2025 16:40:42 05/26/20 25 [facility] Therapy Treatment Form completed Carolyn roland [place] - [facility] 05/26/2025 12:27:56 05/25/20 25 [facility] Therapy Treatment Form completed Carolyn roland [place] [facility] 05/25/2025 13:12:32 05/22/20 25 [facility] Therapy Treatment Form completed Carolyn roland [place] [facility] 05/22/2025 12:33:28 05/21/20 25 [facility] Therapy Treatment Form completed Carolyn roland [place] [facility] 05/21/2025 12:47:49 05/20/20 25 Wound completed COLEMAN MARTELL NP [place] - [facility] 05/20/2025 13:22:44 05/20/20 25 [facility] Therapy Treatment Form completed Moraima Moses [place] - [facility] 05/20/2025 12:52:27 05/19/20 25 [facility] Therapy Treatment Form completed Evelia Winters [place] - [facility] 05/19/2025 13:53:26 05/18/20 25 [facility] Therapy Treatment Form completed Carolyn roland [place] [facility] 05/18/2025 13:22:00 05/15/20 [...] Not available Not available Not available 04/23/2025 50172 3 RxNorm [place] - [facility] 14:25:27 1104 Avelox medicatio n Not available Not available Not available 04/23/2025 31841 6 RxNorm Luciana servin, [place] - [facility] 14:25:52 1105 metformin medicatio n other Not available [facility] 04/23/20252023 6809 RxNorm GI issue s Luciana servin, [place] - [facility] 14:26:11 1253 Product containin g angiotens in-conver ting enzyme inhibitor (product) medicatio n cough moderate Not available 06/26/2025 12825 009 SNOMED Not Available [employer] - prod 10:54:20 1254 metformin hydrochlo ride medicatio n Not available Not available Not available 06/26/2025 69340 3 RxNorm Not Available [employer] - prod 10:54:20 Medications [...] Updated DateTime 5 71 /min 16 /min 97.2 [degF] 93 % 93 % 150/81 mm[Hg] COLEMAN MARTELL NP [place] - [facility] 5 14:11:15 Date Recorded Heart rate Respiratory rate Body temperature Oxygen saturation Oxygen saturation in Arterial blood by Pulse oximetry Respiratory rate Heart rate Body temperature Oxygen saturation Oxygen saturation in Arterial blood by Pulse oximetry Systolic And Diastolic Systolic And Diastolic Provider Name and Address Organization Details Last Updated DateTime 5 69 /min 16 /min 98.1 [degF] 94 % 94 % 16 /min 71 /min 97.2 [degF] 93 % 93 % 126/76 mm[Hg] 150/81 mm[Hg] Mary Miranda [place] - [facility] 5 13:17:46 Social History None recorded. Functional Status None [...] [address] [place] , [place] [address] 04/23/2025 14:15:51 04/24/2025 12:51:54 [id number] Manfred Shelton MD Main Office [address] [place] , [place] [address] 04/29/2025 10:50:02 04/29/2025 15:41:17 4702 Manfred Shelton MD Main Office [address] [place] [address] 04/30/2025 11:16:06 04/30/2025 14:19:33 4714 Manfred Shelton MD Main Office [address] [place] , [place] [address] 05/01/2025 10:18:55 05/01/2025 13:10:41 4729 Manfred Shelton MD Main Office [address] [place] , [place] [address] 05/04/2025 10:46:48 05/04/2025 14:18:05 4767 Manfred Shelton MD Main Office [address] [place] , [place] [address] 05/06/2025 10:55:59 05/06/2025 11:32:38 [id number] Manfred Shelton MD Main Office [address] [place] , [place] [address] 05/06/2025 13:04:28 05/07/2025 08:30:09 4788 Manfred Shelton MD Main Office [address] [place] [address] 05/07/2025 10:45:55 05/08/2025 10:40:32 4802 Manfred Shelton MD Main Office [address] [place] [address] 05/08/2025 10:55:11 05/08/2025 14:31:10 4806 Manfred Shelton MD Main Office [address] [place] , [place] [address] 05/08/2025 13:08:42 05/08/2025 14:13:22 Health Concerns Section Related Observation LastModified by Organization Chari pacheco LastModified Time None Recorded Concern Status LastModified by Organization Details LastModified Time None Recorded Payers Encounter Date Sequence Insurance Name Policy Number Policy Gonzales Covered Member ID Gonzales Member ID Guarantor Name 05/08/2025 2 [employer] Seema Delacruz [id number] Seema Delacruz 05/08/2025 1 [employer] Seema Delacruz [id number] Seema Delacruz Notes Date Note Type Note [...] integumentary system Diagnosis: M86.671, L97.512, E11.621 COLEMAN MARTELL NP null, [place] - [facility] 05/08/2025 14:13:21 OBGyn Episode No OBEpisode recorded.
--- OUTSIDE RECORDS SUMMARY | 2025-07-06 16:06 | XMS_ITS | Continuity of Care Document ---
Author Organization [place] - [facility], Main Office Address [address] [place] [address] Care Team Providers Care Blueprint Assembler Name Role Phone STEPHY YUSUF Primary Care [...] Modified By Organization Details Last Modified Time 06/17/2025 5473 BACKGROUND: Seema Delacruz is a 55 y.o. [...] E11.621 ___ ___ Session Notes: Today's Date [id number] HBOT session 32 of 40 Next HBOT [id number] 30Jul - Patient cleared for 1st HBOT [...] full session with no problem. Antoinette Lau CYBER OPERATOR 04Aug - Patient deemed safe for HBOT [...] antibiotics for an upper respiratory infection. Nicolasa CYBER OPERATOR 07Aug- Patient cleared for HBOT today. VS stable. PAtient had little trouble reaching pressure today, but had to come out of chamber early due to needing to use restroom. She managed to do 4 segs-118 minutes. [place].Tanner CYBER OPERATOR 08Aug - Patient cleared for HBOT today. VS stable. Patient completed full session with no problem. Antoinette Lau CYBER OPERATOR 11Aug - Patient cleared for HBOT today. [...] full session with no problem. [place].Jessica Lau CYBER OPERATOR 13Aug - Patient cleared for HBOT today. VS stable. Patient completed full session with no problem. Wound care to follow treatment today. Antoinette Lau CYBER OPERATOR 14Aug - Patient cleared for HBOT today. VS stable. Patient completed full session with no problem. Antoinette Lau CYBER OPERATOR 15Aug - Patient cleared for HBOT today. [...] attempt to try again on Sunday. Nicolasa CYBER OPERATOR 18Aug - Patient cleared for HBOT today. VS stable. Patient completed full session with no problem. Antoinette Lau CYBER OPERATOR 19Aug - Patient deemed safe for HBOT today. VS stable. FSBS within range. Patient completed full session with no problem. Antoinette Lau CYBER OPERATOR 2015Aug - Patient cleared for HBOT today. [...] date andcompleted full session free of problem. [facility] 29Aug - Cleared for HBOT his date [...] full session with no problem. [place].Jessica Lau CYBER OPERATOR 10Sep - Patient deemed safe for HBOT today. VS stable. Patient completed full session with no problem. [place].Jessica Lau CYBER OPERATOR 11Sep - Patient cleared for HBOT today. VS stable. Patient completed full session with no problem. [place].MonicaDeepali Lau CYBER OPERATOR 12Sep - Found safe for HBOT this date. Completed curtailed session free of problem. Session shortened to satisfy demand of ride provider. [facility] 15Sep - Patient cleared for HBOT today. VS stable. Patient completed full session with no problem. [place].Jessica Lau CYBER OPERATOR 16Sep - Patient cleared for HBOT today. VS stable. Patient completed full session with no problem. [place].Jessica Lau CYBER OPERATOR 17Sep - Patient cleared for HBOT today. VS stable. Patient completed full session with no problem. [place].MonicaDeepali Lau CYBER OPERATOR Not available 06/17/2025 13:18:42 Reason for Referral None Reported. Problems Name Problem SNOMED Code Status Onset Date Resolution Date Notes Provider Name and Address Organization Details Recorded Time Upper respiratory infection [id number] Active 2024 COLEMAN LAU NP null, [place] - [facility] 12:18:40 Episodic migraine [id number] Active 2024 COLEMAN LAU NP null, [place] - [facility] 12:34:01 Type 2 diabetes mellitus 85608987 Active 2024 COLEMAN LAU NP null, [place] - [facility] 15:27:12 Refractory migraine with aura 419952992 Active 2024 COLEMAN LAU NP null, [place] - [facility] 10:56:52 Problem Notes None recorded. Procedures Surgical History Date Name Laterality Status Provider Name and Address Organization Details Recorded Time 07/06/20 25 [facility] Therapy Treatment Form completed Carolyn roland [place] - [facility] 07/06/2025 13:06:29 07/03/20 25 [facility] Therapy Treatment Form completed Paula Licea [place] - [facility] 07/03/2025 12:47:29 07/02/20 25 [facility] Therapy Treatment Form completed Paula Licea CT - [facility] 07/02/2025 13:06:39 07/01/20 25 [facility] Therapy Treatment Form completed Paula Licea CT - [facility] 07/01/2025 13:05:37 06/30/20 25 [facility] Therapy Treatment Form completed COLEMAN LAU NP CT - [facility] 06/30/2025 13:46:12 06/29/20 25 [facility] Therapy Treatment Form completed [facility] - [facility] 06/29/2025 13:24:58 06/26/20 25 [facility] Therapy Treatment Form completed Manfred Shelton MD [place] - [facility] 06/26/2025 16:57:55 06/25/20 25 [facility] Therapy Treatment Form completed [facility] - [facility] 06/25/2025 12:47:07 06/24/20 25 [facility] Therapy Treatment Form completed [facility] - [facility] 06/24/2025 12:40:20 06/23/20 25 [facility] Therapy Treatment Form completed [facility] - [facility] 06/23/2025 12:39:50 06/22/20 25 [facility] Therapy Treatment Form completed [facility] - [facility] 06/22/2025 12:49:55 06/19/20 25 [facility] Therapy Treatment Form completed Manfred Shelton MD CT - [facility] 06/19/2025 14:13:24 06/18/20 25 [facility] Therapy Treatment Form completed COLEMAN LAU NP CT - [facility] 06/18/2025 13:17:34 06/17/20 25 [facility] Therapy Treatment Form completed [facility] - [facility] 06/17/2025 12:29:15 06/16/20 25 [facility] Therapy Treatment Form completed [facility] - [facility] 06/16/2025 12:45:53 06/15/20 25 [facility] Therapy Treatment Form completed [facility] - [facility] 06/15/2025 12:47:07 06/12/20 25 [facility] Therapy Treatment Form completed Manfred Shelton MD CT - [facility] 06/12/2025 14:54:52 06/11/20 25 [facility] Therapy Treatment Form completed [facility] - [facility] 06/11/2025 13:02:39 06/10/20 25 [facility] Therapy Treatment Form completed [facility] - [facility] 06/10/2025 12:50:18 06/08/20 25 [facility] Therapy Treatment Form completed [facility] - [facility] 06/08/2025 12:56:07 06/05/20 25 [facility] Therapy Treatment Form completed Evelia Winters [place] - [facility] 06/05/2025 [...] [facility] Therapy Treatment Form completed [facility] - [facility] 06/02/2025 13:09:37 05/29/20 25 [facility] Therapy Treatment Form completed [facility] - [facility] 05/29/2025 12:25:31 05/28/20 25 [facility] Therapy Treatment Form completed [facility] - [facility] 05/28/2025 13:02:44 05/27/20 25 Wound completed COLEMAN LAU NP [place] - [facility] 05/27/2025 13:18:22 05/27/20 25 [facility] Therapy Treatment Form completed [facility] - [facility] 05/27/2025 12:50:01 05/26/20 25 Nurse Note completed Luciana Noriega [place] - [facility] 05/26/2025 16:40:42 05/26/20 25 [facility] Therapy Treatment Form completed [facility] - [facility] 05/26/2025 12:27:56 05/25/20 25 [facility] Therapy Treatment Form completed [facility] - [facility] 05/25/2025 13:12:32 05/22/20 25 [facility] Therapy Treatment Form completed [facility] - [facility] 05/22/2025 12:33:28 [...] completed Evelia BER[place] - [facility] 05/19/2025 13:53:26 05/18/20 [...] Not available Not available Not available 04/23/2025 49699 3 RxNorm Luciana servin, [place] - [facility] 14:25:27 1104 Avelox medicatio n Not available Not available Not available 04/23/2025 42417 6 RxNorm Luciana servin, [place] - [facility] 14:25:52 1105 metformin medicatio n other Not available low 04/23/20252023 6809 RxNorm GI issue s Luciana Hari null, [place] - [facility] 14:26:11 1253 Product containin g angiotens in-conver ting enzyme inhibitor (product) medicatio n cough moderate Not available 06/26/2025 45174 009 SNOMED Not Available taisha - External Data Service - prod 10:54:20 1254 metformin hydrochlo ride medicatio n Not available Not available Not available 06/26/2025 21606 3 RxNorm Not Available taisha - External [...] Not Available Not A vailable Not Available [employer] Joelle 14 Day Sensor kit change every [...] Address Organization Details Last Updated DateTime 5 100 /min 16 /min 98.2 [degF] 86 % 86 % 72 /min 16 /min 97.7 [degF] 92 % 92 % 171/79 mm[Hg] 161/82 mm[Hg] [facility] - [facility] 5 12:29:32 Social History None recorded. Functional Status None [...] MD Main Office [address] [place] [address] 05/18/2025 10:59:56 05/18/2025 15:48:37 Type 2 diabetes mellitus [id number] E11.69 [id number] Manfred Shelton MD Main Office [address] [place] [address] 05/19/2025 11:07:27 05/19/2025 14:52:31 5002 Manfred Shelton MD Main Office [address] [place] [address] 05/20/2025 11:36:16 05/20/2025 13:20:26 5003 Manfred Shelton MD Main Office [address] [place] [address] 05/20/2025 12:28:38 05/20/2025 13:24:07 [id number] Manfred Shelton MD Main Office [address] [place] [address] 05/21/2025 10:14:02 05/22/2025 08:40:53 [id number] Manfred Shelton MD Main Office [address] [place] [address] 05/22/2025 10:05:00 05/22/2025 14:31:52 [id number] COLEMAN LAU NP Main Office [address] [place] [address] 05/25/2025 10:54:17 05/25/2025 14:23:41 5071 COLEMAN LAU NP Main Office [address] [place] [address] 05/26/2025 10:04:52 05/26/2025 13:22:24 5083 COLEMAN JASBIR, [employer] Main Office [address] [place] [address] 05/26/2025 16:38:48 05/26/2025 16:40:45 [id number] COLEMAN JASBIR, [employer] Main Office [address] [place] [address] 05/27/2025 10:11:43 05/27/2025 13:22:20 5093 COLEMAN JASBIR, [employer] Main Office [address] [place] [address] 05/27/2025 13:11:38 05/27/2025 13:19:10 5104 Manfred Shelton MD Main Office [address] [place] [address] 05/28/2025 10:14:13 05/29/2025 08:47:13 [id number] Manfred Shelton MD Main Office [address] [place] [address] 05/29/2025 10:04:58 05/29/2025 17:43:48 [id number] Manfred Shelton MD Main Office [address] [place] [address] 06/02/2025 10:25:50 06/02/2025 14:14:27 [id number] Manfred Shelton MD Main Office [address] [place] [address] 06/03/2025 10:16:52 06/03/2025 14:45:20 [id number] Manfred Shelton MD Main Office [address] [place] [address] 06/04/2025 10:31:23 06/04/2025 13:58:07 5173 Manfred Shelton MD Main Office [address] [place] [address] 06/04/2025 14:13:52 06/04/2025 14:25:08 [id number] Manfred Shelton MD Main Office [address] [place] [address] 06/05/2025 10:55:07 06/05/2025 16:50:44 5202 Manfred Shelton MD Main Office [address] [place] [address] 06/08/2025 10:25:37 06/08/2025 14:39:12 [id number] Manfred Shelton MD Main Office [address] [place] [address] 06/10/2025 10:19:13 06/10/2025 13:21:20 [id number] Manfred Shelton MD Main Office [address] [place] [address] 06/11/2025 10:35:04 06/11/2025 14:11:07 [id number] Manfred Shelton MD Main Office [address] [place] [address] 06/12/2025 10:59:45 06/12/2025 14:56:49 [id number] Manfred Shelton MD Main Office [address] [place] [address] 06/15/2025 10:50:33 06/15/2025 13:14:21 [id number] Manfred Shelton MD Main Office [address] [place] [address] 06/16/2025 10:14:56 06/16/2025 13:52:36 [id number] Manfred Shelton MD Main Office [address] [place] [address] 06/17/2025 10:28:52 06/17/2025 13:18:56 Health Concerns Section Related Observation LastModified by Organization Detai ls LastModified Time None Recorded Concern Status LastModified by Organization Details LastModified Time None Recorded Payers Encounter Date Sequence Insurance Name Policy Number Policy Gonzales Covered Member ID Gonzales Member ID Guarantor Name 06/17/2025 2 [employer] Seema Delacruz [id number] Seema Delacruz 06/17/2025 1 [employer] Seema Delacruz [id number] Seema Delacruz OBGyn Episode No OBEpisode recorded.
--- OUTSIDE RECORDS SUMMARY | 2025-07-06 16:07 | XMS_ITS | Clinical Summary ---
Author Organization [facility] Address [address] [place] [address] Phone Care Team Providers Care Insurance Biller Name Role Phone Unavailable Primary Care Provider [...] of 2) 2019 COVID-19 Vaccine ( season) 2025 04/07/2021, 03/17/2021 Influenza Vaccine (#1) 2025 3, [...] Impressions 11/19/2023 7:29 AM EST Benign finding ([id number]) ~ RECOMMENDATION: Routine screening mammogram in 1 [...] the next mammogram, in accordance with the [place] [employer] and the Society of Breast Imaging recommendations. Narrative 11/19/2023 7:29 AM EST Procedure:MM MAMMO DIGITAL EULALIA SCREEN BILAT ~ Reason for exam: screening, asymptomatic. Z12.31-Encounter for screening mammogram for malignant neoplasm of [id number] ~ MM MAMMO DIGITAL EULALIA SCREEN BILAT [...] for screening mammogram for malignant neoplasm of [id number] ~ MM MAMMO DIGITAL EULALIA SCREEN BILAT [...] evidence of malignancy. ~ IMPRESSION: Benign finding ([id number]) ~ RECOMMENDATION: Routine screening mammogram in 1 [...] the next mammogram, in accordance with the [place] [employer] and the Society of Breast Imaging recommendations. us Not In [facility] Provider IMG MAMMOGRAPHY ORDERABLES Final Result from Last 3 Months or Most Recently Relevant to Health Maintenance [place] [address] [place] [address] [employer] HMO
--- OUTSIDE RECORDS SUMMARY | 2025-07-06 16:07 | XMS_ITS | Continuity of Care Document ---
Author Organization [place] - [facility], Main Office Address [address] [place] [address] Care Team Providers Care Hydrogen Plant Operator Name Role Phone STEPHY YUSUF Primary Care Provider [phone] Assessment No assessment recorded. Plan of Treatment [...] Not available Not available Not available Hyperb juloi Therap y-120 2024 10:30A M [facility] [...] Modified By Organization Details Last Modified Time 07/03/2025 4212 BACKGROUND: Seema Delacruz is a 55 y.o. [...] Diagnosis: L97.512, E11.621 Session Notes: Today's Date 03Jul2025 HBOT session 44 of 60 Next HBOT 06Jul2025 30Jul - Patient cleared for 1st HBOT [...] full session with no problem. Antoinette Lau FOOD GENERAL MANAGER 04Aug - Patient deemed safe for [...] antibiotics for an upper respiratory infection. Nicolasa FOOD GENERAL MANAGER 07Aug- Patient cleared for HBOT today. VS stable. PAtient had little trouble reaching pressure today, but had to come out of chamber early due to needing to use restroom. She managed to do 4 segs-118 minutes. [place].Tanner FOOD GENERAL MANAGER 08Aug - Patient cleared for HBOT today. VS stable. Patient completed full session with no problem. Antoinette Lau FOOD GENERAL MANAGER 11Aug - Patient cleared for HBOT [...] full session with no problem. Antoinette Lau FOOD GENERAL MANAGER 13Aug - Patient cleared for HBOT today. VS stable. Patient completed full session with no problem. Wound care to follow treatment today. Antoinette Lau APRN 14Aug - Patient cleared for HBOT today. VS stable. Patient completed full session with no problem. Antoinette Lau FOOD GENERAL MANAGER 15Aug - Patient cleared for HBOT [...] attempt to try again on Sunday. Nicolasa FOOD GENERAL MANAGER 18Aug - Patient cleared for HBOT today. VS stable. Patient completed full session with no problem. Antoinette Lau FOOD GENERAL MANAGER 19Aug - Patient deemed safe for [...] date andcompleted full session free of problem. [facility] 29Aug - Cleared for HBOT his date [...] full session with no problem. M.A. Judi FOOD GENERAL MANAGER 25Sep - Patient cleared for HBOT today. VS stable. Patient completed full session with no problem. [place].Jessica Lau FOOD GENERAL MANAGER 26Sep - Deemed safe for HBOT on this date and completed the full session uneventfully. Estefania WATERS 29Sep - Patient cleared for HBOT today. VS stable. Patient completed 3 Seg session with no problem. [place].Jessica Lau FOOD GENERAL MANAGER 30Sep - Patient cleared for HBOT today. VS stable. Patient completed full session with no problem. [place].Jessica Lau FOOD GENERAL MANAGER 01Oct - Patient cleared for HBOT today. VS stable. Patient completed full session with no problem. [place].Jessica Lau FOOD GENERAL MANAGER 02Oct - Cleared for HBOT this date and completed full session free of problem. Estefania WATERS 03Oct - Deemed safe for HBOT today and completed her full session without problem. [facility] [email or web address] Not available 07/03/2025 17:53:28 Reason for Referral None Reported. Problems Name Problem SNOMED Code Status Onset Date Resolution Date Notes Provider Name and Address Organization Details Recorded Time Upper respiratory infection 07196627 Active 2024 COLEMAN LAU NP null, [place] - [facility] 12:18:40 Episodic migraine 8171291472511 Active 2024 COLEMAN LAU NP null, [place] - [facility] 12:34:01 Type 2 diabetes mellitus 34580069 Active 2024 COLEMAN LAU NP null, [place] - [facility] 15:27:12 Refractory migraine with aura 474095998 Active 2024 COLEMAN LAU NP null, [place] [...] Therapy Treatment Form completed COLEMAN LAU NP [place] - [facility] 06/30/2025 13:46:12 06/29/20 25 [facility] Therapy Treatment Form completed [facility] - [facility] 06/29/2025 13:24:58 06/26/20 25 [facility] Therapy Treatment Form completed Manfred Shelton MD [place] - [facility] 06/26/2025 16:57:55 06/25/20 25 [facility] Therapy Treatment Form completed [facility] - [facility] 06/25/2025 12:47:07 06/24/20 25 [facility] Therapy Treatment Form completed [facility] 06/24/2025 12:40:20 06/23/20 25 [facility] Therapy Treatment Form completed [facility] 06/23/2025 12:39:50 06/22/20 25 [facility] Therapy Treatment Form completed [facility] - [facility] 06/22/2025 12:49:55 06/19/20 25 [facility] Therapy Treatment Form completed Manfred Shelton MD [place] - [facility] 06/19/2025 14:13:24 06/18/20 25 [facility] Therapy Treatment Form completed COLEMAN LAU NP [place] - [facility] 06/18/2025 13:17:34 06/17/20 25 [facility] Therapy Treatment Form completed [facility] - [facility] 06/17/2025 12:29:15 06/16/20 25 [facility] Therapy Treatment Form completed [facility] - [facility] 06/16/2025 12:45:53 06/15/20 25 [facility] Therapy Treatment Form completed [facility] - [facility] 06/15/2025 12:47:07 06/12/20 25 [facility] Therapy Treatment Form completed Manfred Shelton MD [place] - [facility] 06/12/2025 14:54:52 06/11/20 25 [facility] Therapy Treatment Form completed [facility] 06/11/2025 13:02:39 06/10/20 25 [facility] Therapy Treatment Form completed Carolyn sharp [place] - [facility] 06/10/2025 12:50:18 06/08/20 25 [facility] Therapy Treatment Form completed Carolyn roland [place] - [facility] 06/08/2025 12:56:07 06/05/20 25 [facility] Therapy Treatment Form completed Eveliapatricia Marinahiram BER[place] - [facility] 06/05/2025 14:28:16 [...] Care Therapy Treatment Form completed Carolyn roland [place] - [facility] 06/02/2025 13:09:37 05/29/20 25 [facility] Therapy Treatment Form completed Carolyn luan [place] - [facility] 05/29/2025 12:25:31 05/28/20 25 [facility] Therapy Treatment Form completed [facility] - [facility] 05/28/2025 13:02:44 05/27/20 25 Wound completed COLEMAN LAU NP [place] - [facility] 05/27/2025 13:18:22 05/27/20 25 [facility] Therapy Treatment Form completed [facility] - [facility] 05/27/2025 12:50:01 05/26/20 25 Nurse Note completed Luciana Noriega [place] [facility] 05/26/2025 16:40:42 05/26/20 25 [facility] Therapy Treatment Form completed [facility] [place] - [facility] 05/26/2025 12:27:56 05/25/20 25 [facility] Therapy Treatment Form completed Carolyn luan [place] - [facility] 05/25/2025 13:12:32 05/22/20 25 [facility] Therapy Treatment Form completed [facility] - [facility] 05/22/2025 12:33:28 05/21/20 25 [facility] Therapy Treatment Form completed [facility] - [facility] 05/21/2025 12:47:49 05/20/20 [...] Mary Miranda [place] - [facility] 05/14/2025 13:46:28 [...] Not available Not available Not available 04/23/2025 32191 3 RxNorm Luciana servin, [place] - [facility] 14:25:27 1104 Avelox medicatio n Not available Not available Not available 04/23/2025 22317 6 RxNorm Luciana servin, [place] - [facility] 14:25:52 1105 metformin medicatio n other Not available low 04/23/20252023 6809 RxNorm GI issue s Luciana Noriega null, [place] - [facility] 14:26:11 1253 Product containin g angiotens in-conver ting enzyme inhibitor (product) medicatio n cough moderate Not available 06/26/2025 81565 009 SNOMED Not Available taisha - External Data Service - prod 10:54:20 1254 metformin hydrochlo ride medicatio n Not available Not available Not available 06/26/2025 42334 3 RxNorm Not Available taisha - External [...] Address Organization Details Last Updated DateTime 5 95 /min 16 /min 97.9 [degF] 90 % 90 % 73 /min 16 /min 97.7 [degF] 90 % 90 % 153/83 mm[Hg] 123/61 mm[Hg] Paula [facility] - [facility] 5 12:47:55 Social History None recorded. Functional Status None [...] ICD10 Code Diagnosis IMO Codes Diagnosis Note [id number] Manfred Shelton MD Main Office [address] [place] [address] 06/03/2025 10:16:52 06/03/2025 14:45:20 [id number] Manfred Shelton MD Main Office [address] [place] [address] 06/04/2025 10:31:23 06/04/2025 13:58:07 [id number] Manfred Shelton MD Main Office [address] [place] [address] 06/04/2025 14:13:52 06/04/2025 14:25:08 [id number] Manfred Shelton MD Main Office [address] [place] [address] 06/05/2025 10:55:07 06/05/2025 16:50:44 [id number] Manfred Shelton MD Main Office [address] [place] [address] 06/08/2025 10:25:37 06/08/2025 14:39:12 [id number] Manfred Shelton MD Main Office [address] [place] [address] 06/10/2025 10:19:13 06/10/2025 13:21:20 [id number] Manfred Shelton MD Main Office [address] [place] [address] 06/11/2025 10:35:04 06/11/2025 14:11:07 [id number] Manfred Shelton MD Main Office [address] [place] [address] 06/12/2025 10:59:45 06/12/2025 14:56:49 [id number] Manfred Shelton MD Main Office [address] [place] [address] 06/15/2025 10:50:33 06/15/2025 13:14:21 [id number] Manfred Shelton MD Main Office [address] [place] [address] 06/16/2025 10:14:56 06/16/2025 13:52:36 [id number] Manfred Shelton MD Main Office [address] [place] [address] 06/17/2025 10:28:52 06/17/2025 13:18:56 [id number] Manfred Shelton MD Main Office [address] [place] [address] 06/18/2025 10:16:09 06/18/2025 13:16:04 [id number] Manfred Shelton MD Main Office [address] [place] [address] 06/19/2025 10:44:19 06/19/2025 14:15:39 [id number] COLEMAN LAU NP Main Office [address] [place] [address] 06/22/2025 10:36:06 06/22/2025 14:32:28 [id number] Manfred Shelton MD Main Office [address] [place] [address] 06/23/2025 10:18:15 06/23/2025 14:03:00 [id number] Manfred Shelton MD Main Office [address] [place] [address] 06/24/2025 10:23:16 06/24/2025 13:37:08 [id number] Manfred Shelton MD Main Office [address] [place] [address] 06/25/2025 10:19:36 06/25/2025 14:27:35 [id number] Manfred Shelton MD Main Office [address] [place] [address] 06/26/2025 10:52:38 06/26/2025 16:27:47 [id number] Manfred Shelton MD Main Office [address] [place] [address] 06/29/2025 10:44:14 06/29/2025 13:39:12 [id number] Manfred Shelton MD Main Office [address] [place] [address] 06/30/2025 10:42:21 06/30/2025 13:46:39 [id number] Manfred Shelton MD Main Office [address] [place] [address] 07/01/2025 10:49:18 07/01/2025 13:25:24 [id number] Manfred Shelton MD Main Office [address] [place] [address] 07/02/2025 10:15:06 07/03/2025 07:21:23 [id number] Manfred Shelton MD Main Office [address] [place] [address] 07/03/2025 10:50:33 07/03/2025 17:53:35 Health Concerns Section Related Observation LastModified by Organization Detai ls LastModified Time None Recorded Concern Status LastModified by Organization Details LastModified Time None Recorded Payers Encounter Date Sequence Insurance Name Policy Number Policy Gonzales Covered Member ID Gonzales Member ID Guarantor Name 07/03/2025 2 [employer] [facility] Seema Delacruz [id number] Seema Delacruz 07/03/2025 1 [employer] Seema Delacruz [id number] Seema Delacruz OBGyn Episode No OBEpisode recorded.
--- OUTSIDE RECORDS SUMMARY | 2025-07-06 16:07 | XMS_ITS | Clinical Summary ---
Author Organization Healthcare Address [address] [place] [address] Care Team Providers Care Telemedicine Physician Name Role Phone Faustino Amador MD Primary Care Provider + [phone] Allergies Active Allergy Reactions Criticality Noted Date [...] day. 10/10/19 Active Lancets (OneTouch Delica Plus Srfwzo03L) [facility] 07/11/20 Active Easy Comfort Pen [place] 31G X 5 MM [facility] 12/11/19 Active HumuLIN 70/30 KWIKPEN (70-30) 100 [...] Sensor (FreeStyle Joelle 14 Day Sensor) [facility] 11/14/19 Active diclofenac (Voltaren) 75 MG EC [...] directed 10/29/19 24 Active ergocalciferol 1.25 MG (77061 UT) capsule Take 1 capsule every week by oral route for 90 days. 10/29/19 24 Active methocarbamol (Robaxin) 500 MG tablet 10/29/19 24 Active ondansetron ODT (Zofran-ODT) [address] 1 tablet every 4-6 hours by translingual route as needed. Active therapeutic multivitamin-drift miner als (Theragran-M) tablet Take 1 tablet [...] each day. 30 tablet 2 06/13/20 24 Active Active Problems Problem Noted Date Diagnosed Date Lymphedema 05/19/2024 Foot ulceration, right, with fat layer exposed 0 02/04/2024 Ulcer of toe of right foot, with fat layer expos ed 11/13/2023 Ulcer of left heel, with fat layer exposed 11/13 Morbid obesity with body mass index (BMI) of 40. 0 or higher 05/25/2022 Excessive skin and subcutaneous tissue Excess skin 12/16/2021 Overview (12/16/2021): Added automatically from request for surgery [id number] Microalbuminuria 03/12/2020 Cervical radiculopathy 11/22/2018 Neck pain 11/22/2018 Chronic obstructive pulmonary disease 10/15/2012 Disorder of thyroid 10/15/2012 Essential (primary) hypertension 10/15/2012 Pure hypercholesterolemia 10/15/2012 Type 2 diabetes mellitus without (mention of) co mplications 10/15/2012 Overview (07/03/2022): Regulatory Update July 2022 Resolved Problems Problem Noted Date Diagnosed Date Resolved Date Open wound 02/04/2024 06/21/2025 Peripheral edema 02/04/2024 06/21/2025 Hematoma 03/07/2022 06/21/2025 Overview (05/24/2022): Added automatically from request for surgery [id number] Family History Medical History Relation Name Comments [...] drink first t debra in the morning (EYE-SLOTS MANAGER) to steady your nerves or to get [...] Health Maintenance Due Date Last Done Comments [facility]-Diabetes: Hemoglobin A1C 1969 [facility]-HIV Screening [...] 2019 [facility]-Zoster Vaccines (1 of 2) 2019 [facility]-Depression Screening 11/12/2024 11/12/2023 [facility]-GFTFT-10 Vaccine (3 - season) 2025 04/07/2021, 03/17/2021 [facility]-Influenza Vaccine (#1) 2025 07/01/2019, [facility]-Breast Cancer [...] this topic Medical Devices Implanted Type Area Assistant At Surgery Device Identifier Shelf Expiration Date Model / Serial / Lot Pain Pump Pain Pump Right: Back Insurance [employer] MEDICAID [employer] MEDICARE [employer] MEDICARE Advance Directives * Full Code (Latest Code Status on File) Date Activated Date Inactivated Comments 05/24/2022 4:10 PM 05/26/2022 3:36 PM Question Answer Comments Patient has decision-making capacity? Yes Care Teams Telemedicine Physician Relationship Specialty Start Date End Date Faustino Amador MD [address] [place] [address] PCP - General 03/14/21
--- OUTSIDE RECORDS SUMMARY | 2025-07-06 16:07 | XMS_ITS | Continuity of Care Document ---
Author Organization [place] - [facility], Main Office Address [address] [place] [address] Care Team Providers Care Clutch Inspector Name Role Phone STEPHY YUSUF Primary Care [...] Modified By Organization Details Last Modified Time 06/19/2025 7548 BACKGROUND: Seema Delacruz is a 55 y.o. [...] Diagnosis: L97.512, E11.621 Session Notes: Today's Date 19Jun2025 HBOT session 34 of 40 Next HBOT [id number] 30Jul - Patient cleared for 1st HBOT [...] completed full session with no problem. [place].Jessica Lua SCOOP MACHINE OPERATOR 04Aug - Patient deemed safe for HBOT today. VS stable. Patient completed full session with no problem. Antoinette Lau SCOOP MACHINE OPERATOR 05Aug - patient out for another appt. [...] antibiotics for an upper respiratory infection. Nicolasa SCOOP MACHINE OPERATOR 07Aug- Patient cleared for HBOT today. VS stable. PAtient had little trouble reaching pressure today, but had to come out of chamber early due to needing to use restroom. She managed to do 4 segs-118 minutes. [place].Tanner SCOOP MACHINE OPERATOR 08Aug - Patient cleared for HBOT today. VS stable. Patient completed full session with no problem. Antoinette Lau SCOOP MACHINE OPERATOR 11Aug - Patient cleared for HBOT [...] full session with no problem. Antoinette Lau SCOOP MACHINE OPERATOR 13Aug - Patient cleared for HBOT today. VS stable. Patient completed full session with no problem. Wound care to follow treatment today. Antoinette Lau SCOOP MACHINE OPERATOR 14Aug - Patient cleared for HBOT today. VS stable. Patient completed full session with no problem. Antoinette Lau SCOOP MACHINE OPERATOR 15Aug - Patient cleared for HBOT [...] attempt to try again on Sunday. Nicolasa SCOOP MACHINE OPERATOR 18Aug - Patient cleared for HBOT today. VS stable. Patient completed full session with no problem. Antoinette Lau SCOOP MACHINE OPERATOR 19Aug - Patient deemed safe for HBOT today. VS stable. FSBS within range. Patient completed full session with no problem. Antoinette Lau SCOOP MACHINE OPERATOR 2015Aug - Patient cleared for HBOT [...] date andcompleted full session free of problem. [facility] 29Aug - Cleared for HBOT his date [...] completed full session with no problem. [place].Jessica Judi SCOOP MACHINE OPERATOR 10Sep - Patient deemed safe for HBOT today. VS stable. Patient completed full session with no problem. [place].Jessica Judi SCOOP MACHINE OPERATOR 11Sep - Patient cleared for HBOT today. VS stable. Patient completed full session with no problem. [place].Jessica SotoJudi SCOOP MACHINE OPERATOR 12Sep - Found safe for HBOT this date. Completed curtailed session free of problem. Session shortened to satisfy demand of ride provider. Estefania WATERS 15Sep - Patient cleared for HBOT today. VS stable. Patient completed full session with no problem. [place].Jessica Judi HUTTONN 16Sep - Patient cleared for HBOT today. VS stable. Patient completed full session with no problem. [place].Jessica Judi SCOOP MACHINE OPERATOR 17Sep - Patient cleared for HBOT today. VS stable. Patient completed full session with no problem. [place].Jessica Judi SCOOP MACHINE OPERATOR 18Sep - Patient cleared for HBOT today. [...] full session with no problem. Antoinette Judi SCOOP MACHINE OPERATOR 19Sep - today patient arrived with suitable Glu so was cleared to proceed with HBOT taking a Glu Gel into chamber with her. She experienced no problem in chamber so completed full session, emerging with a border line safe Glu. She took snack items with her as she was to proceed to another medical appointment. [facility] [email or web address] Not available 06/19/2025 14:15:32 Reason for Referral None Reported. Problems Name Problem SNOMED Code Status Onset Date Resolution Date Notes Provider Name and Address Organization Details Recorded Time Upper respiratory infection 07999328 Active 2024 COLEMAN LAU NP null, [place] - [facility] 12:18:40 Episodic migraine [id number] 06 Active 2024 COLEMAN LAU NP null, [place] - [facility] 12:34:01 Type 2 diabetes mellitus 42862796 Active 2024 COLEMAN LAU NP null, [place] - [facility] 15:27:12 Refractory migraine with aura [id number] Active 2024 COLEMAN LAU NP null, [place] - [facility] 10:56:52 Problem Notes None recorded. Procedures Surgical History Date Name Laterality Status Provider Name and Address Organization Details Recorded Time 07/06/20 [facility] Therapy Treatment Form completed Carolyn roland [place] - [facility] 07/06/2025 13:06:29 07/03/20 [...] LAU NP [place] - [facility] 06/30/2025 13:46:12 06/29/20 25 [facility] Therapy Treatment Form completed [facility] - [facility] 06/29/2025 13:24:58 06/26/20 25 [facility] Therapy Treatment Form completed MD [place] - [facility] 06/26/2025 16:57:55 06/25/20 25 [facility] Therapy Treatment Form completed [facility] - [facility] 06/25/2025 12:47:07 06/24/20 25 [facility] Therapy Treatment Form completed [facility] - [facility] 06/24/2025 12:40:20 06/23/20 25 [facility] Therapy Treatment Form completed [facility] - [facility] 06/23/2025 12:39:50 06/22/20 25 [facility] Therapy Treatment Form completed [facility] - [facility] 06/22/2025 12:49:55 06/19/20 25 [facility] Therapy Treatment Form completed Manfred Shelton MD [place] - [facility] 06/19/2025 14:13:24 06/18/20 25 [facility] Therapy Treatment Form completed COLEMAN LAU NP [place] - [facility] 06/18/2025 13:17:34 06/17/20 25 [facility] Therapy Treatment Form completed [facility] - [facility] 06/17/2025 12:29:15 06/16/20 25 [facility] Therapy Treatment Form completed [facility] - [facility] 06/16/2025 12:45:53 06/15/20 25 [facility] Therapy Treatment Form completed [facility] - [facility] 06/15/2025 12:47:07 06/12/20 25 [facility] Therapy Treatment Form completed Manfred Shelton MD [place] - [facility] 06/12/2025 14:54:52 06/11/20 25 [facility] Therapy Treatment Form completed [facility] - [facility] 06/11/2025 13:02:39 06/10/20 25 [facility] Therapy Treatment Form completed [facility] - [facility] 06/10/2025 12:50:18 06/08/20 25 [facility] Therapy Treatment Form completed [facility] - [facility] 06/08/2025 12:56:07 06/05/20 25 [facility] Therapy Treatment Form completed Evelia Salashiram [place] - [facility] 06/05/2025 14:28:16 06/04/20 25 Wound completed COLEMAN LAU NP [place] - [facility] 06/04/2025 14:24:29 06/04/20 25 [facility] Therapy Treatment Form completed COLEMAN LAU NP [place] - [facility] 06/04/2025 13:56:49 06/03/20 25 [facility] Therapy Treatment Form completed Eveliapatricia Winters [place] - [facility] 06/03/2025 14:11:11 06/02/20 25 [facility] Therapy Treatment Form completed [facility] - [facility] 06/02/2025 13:09:37 05/29/20 25 [facility] Therapy Treatment Form completed [facility] - [facility] 05/29/2025 12:25:31 05/28/20 25 [facility] Therapy Treatment Form completed [facility] - [facility] 05/28/2025 [...] null, [place] - [facility] 5 14:25:04 1102 Rocephin medicatio n Not available Not available Not available 04/23/2025 9449 RxNorm Luciana servin, [place] - [facility] 5 14:25:10 1103 Inapsine medicatio n Not available Not available Not available 04/23/2025 56794 3 RxNorm Luciana Noriega null, [place] - [facility] 5 14:25:27 1104 Avelox medicatio n Not available Not available Not available 04/23/2025 22894 6 RxNorm Luciana servin, [place] - [facility] 5 14:25:52 1105 metformin medicatio n other Not available low 04/23/20252023 6809 RxNorm GI issue s Luciana servin, [place] - [facility] 14:26:11 1253 Product containin g angiotens in-conver ting enzyme inhibitor (product) medicatio n cough moderate Not available 06/26/2025 98402 009 SNOMED Not Available [employer] - External Data Service - prod 5 10:54:20 1254 metformin hydrochlo ride medicatio n Not available Not available Not available 06/26/2025 54745 3 RxNorm Not Available [employer] - prod 5 10:54:20 [...] and Address Organization Details Last Updated DateTime 73 /min 16 /min 97.9 [degF] 91 % 91 % 16 /min 66 /min 97.2 [degF] 92 % 92 % 153/70 mm[Hg] 140/71 mm[Hg] Mary Miranda [place] - [facility] 12:38:08 Social History None recorded. Functional Status None [...] ICD10 Code Diagnosis IMO Codes Diagnosis Note [id number] Manfred Shelton MD Main Office [address] [place] [address] 05/19/2025 11:07:27 05/19/2025 14:52:31 5002 Manfred Shelton MD Main Office [address] [place] [address] 05/20/2025 11:36:16 05/20/2025 13:20:26 5003 Manfred Shelton MD Main Office [address] [place] [address] 05/20/2025 12:28:38 05/20/2025 13:24:07 [id number] Manfred Shelton MD Main Office [address] [address] 05/21/2025 10:14:02 05/22/2025 08:40:53 [id number] Manfred Shelton MD Main Office [address] [place] [address] 05/22/2025 10:05:00 05/22/2025 14:31:52 [id number] COLEMAN SOTOWOOD, ACADEMIC ADVISEMENT DIRECTOR Main Office [address] [place] [address] 05/25/2025 10:54:17 05/25/2025 14:23:41 [id number] COLEMAN JUDI, ACADEMIC ADVISEMENT DIRECTOR Main Office [address] [place] [address] 05/26/2025 10:04:52 05/26/2025 13:22:24 5083 COLEMAN JUDI, ACADEMIC ADVISEMENT DIRECTOR Main Office [address] [place] [address] 05/26/2025 16:38:48 05/26/2025 16:40:45 [id number] COLEMAN JUDI, ACADEMIC ADVISEMENT DIRECTOR Main Office [address] [place] [address] 05/27/2025 10:11:43 05/27/2025 13:22:20 [id number] COLEMAN SOTOWOOD, ACADEMIC ADVISEMENT DIRECTOR Main Office [address] [place] [address] 05/27/2025 13:11:38 05/27/2025 13:19:10 [id number] Manfred Shelton MD Main Office [address] [place] [address] 05/28/2025 10:14:13 05/29/2025 08:47:13 [id number] Manfred Shelton MD Main Office [address] [place] [address] 05/29/2025 10:04:58 05/29/2025 17:43:48 [id number] Manfred Shelton MD Main Office [address] [place] [address] 06/02/2025 10:25:50 06/02/2025 14:14:27 [id number] Manfred Shelton MD Main Office [address] [place] [address] 06/03/2025 10:16:52 06/03/2025 14:45:20 [id number] Manfred Shelton MD Main Office [address] [place] [address] 06/04/2025 10:31:23 06/04/2025 13:58:07 [id number] Manfred Shelton MD Main Office [address] [place] [address] 06/04/2025 14:13:52 06/04/2025 14:25:08 [id number] Manfred Shelton MD Main Office [address] [place] [address] 06/05/2025 10:55:07 06/05/2025 16:50:44 5202 Manfred Shelton MD Main Office [address] [place] [address] 06/08/2025 10:25:37 06/08/2025 14:39:12 [id number] Manfred Shelton MD Main Office [address] [place] [address] 06/10/2025 10:19:13 06/10/2025 13:21:20 [id number] Manfred Shelton MD Main Office [address] [place] [address] 06/11/2025 10:35:04 06/11/2025 14:11:07 [id number] Manfred Shelton MD Main Office [address] [place] [address] 06/12/2025 10:59:45 06/12/2025 14:56:49 [id number] Manfred Shelton MD Main Office [address] [place] [address] 06/15/2025 10:50:33 06/15/2025 13:14:21 [id number] Manfred Shelton MD Main Office [address] [place] [address] 06/16/2025 10:14:56 06/16/2025 13:52:36 [id number] Manfred Shelton MD Main Office [address] [place] [address] 06/17/2025 10:28:52 06/17/2025 13:18:56 [id number] Manfred Shelton MD Main Office [address] [place] [address] 06/18/2025 10:16:09 06/18/2025 13:16:04 [id number] Manfred Shelton MD Main Office [address] [place] [address] 06/19/2025 10:44:19 06/19/2025 14:15:39 Health Concerns Section Related Observation LastModified by Organization Detai ls LastModified Time None Recorded Concern Status LastModified by Organization Details LastModified Time None Recorded Payers Encounter Date Sequence Insurance Name Policy Number Policy Gonzales Covered Member ID Gonzales Member ID Guarantor Name 06/19/2025 2 [employer] [facility] Seema Delacruz [id number] Seema Delacruz 06/19/2025 1 [employer] Seema Delacruz [id number] Seema Delacruz OBGyn Episode No OBEpisode recorded.
--- OUTSIDE RECORDS SUMMARY | 2025-07-06 16:07 | XMS_ITS | Encounter Summary ---
Author Organization Healthcare Address [address] [place] [address] Care Team Providers Care Twisting Machine Operator Name Role Phone Faustino Amador MD Primary Care Provider [phone] Reason for Referral * Consultation (Routine) - Closed Specialty Diagnoses / Procedures Referred By Betito carty Referred To Contact Plastic Surgery Diagnoses Excess skin Khurram Chanel APRN [address] [place] [id number] Phone: tel: fax: Referral ID Status Reason Start Date Expiration Date V isits Requested Visits Authorized [id number] Closed Specialty Services Required 11/29/2021 05/31/2023 1 1 Encounter Details Date Type Department Care Team (Late st Contact Info) Description 11/29/2021 [facility] [address] [place] [address] Khurram Chanel APRN [address] [place] [id number] Excess skin (Primary Dx) Social History Tobacco [...] Primary documented in this encounter Care Teams Twisting Machine Operator Relationship Specialty Start Date End Date Faustino Amador MD [address] [place] [address] PCP - General 03/14/21 documented as of this encounter
--- OUTSIDE RECORDS SUMMARY | 2025-07-06 16:07 | XMS_ITS | Continuity of Care Document ---
Author Organization [place] - [facility], Main Office Address [address] [place] [address] Care Team Providers Care Soda Jerker Name Role Phone YUSUF KEYES Primary Care Provider Assessment Encounter Date Assessment Date Assessment LastModified by Organization Details LastModified Time 05/13/2025 05/13/2025 Seema Delacruz is a 55 y.o. female [...] into Lymphedemia pumps for her. Not available 05/13/2025 14:36:53 Plan of Treatment Reminders Order Date Submit [...] By Organization Details Last Modified Time 05/13/2025 [id number] Cleanse wound with NS and gauze. Place silver Alginate to wound, cover with gauze, ABD pad, kerlix, and secure with joan wrap. Change 3 times weekly. Not available 05/13/2025 14:36:55 05/06/2025 - No sharp Debridement today in [...] Kerlix, and an joan wrap to secure. IsraelSageCodell GARLAND MAKER 05/13/2025 - No sharp Debridement today in clinic. We are assisting Dr. Ortiz with the patients wound care. Wound cleansed with NS and gauze, applied silver Alginate, gauze, abd pad, Kerlix, and an joan wrap to secure. IsraelDeepaliMonicaDeepaliJudi GARLAND MAKER Not available 05/13/2025 14:39:11 Reason for Referral None Reported. Problems Name Problem SNOMED Code Status Onset Date Resolution Date Notes Provider Name and Address Organization Details Recorded Time Upper respiratory infection 97856173 Active 2024 COLEMAN MARTELL NP null, [place] - [facility] 12:18:40 Episodic migraine 4393525405053 Active 2024 COLEMAN MARTELL NP null, [place] [facility] 12:34:01 Type 2 diabetes mellitus 64606307 Active 2024 COLEMAN MARTELL NP null, [place] [facility] 15:27:12 Refractory migraine with aura 760374672 Active 2024 COLEMAN MARTELL NP null, [place] - [facility] 10:56:52 Problem Notes None recorded. Procedures Surgical History Date Name Laterality Status Provider Name and Address Organization Details Recorded Time 07/06/20 [facility] Therapy Treatment Form completed Carolyn roland [place] - [facility] 07/06/2025 13:06:29 07/03/20 25 [facility] Therapy Treatment Form completed aPula Licea [place] - [facility] 07/03/2025 [...] [facility] Therapy Treatment Form completed [facility] - [facility] 06/29/2025 13:24:58 06/26/20 25 [facility] Therapy Treatment Form completed Manfred Shelton MD [place] - [facility] 06/26/2025 16:57:55 06/25/20 25 [facility] Therapy Treatment Form completed [facility] - [facility] 06/25/2025 12:47:07 06/24/20 25 [facility] Therapy Treatment Form completed [facility] - [facility] 06/24/2025 12:40:20 06/23/20 25 [facility] Therapy Treatment Form completed [facility] - [facility] 06/23/2025 12:39:50 06/22/20 25 [facility] Therapy Treatment Form completed [facility] - [facility] 06/22/2025 12:49:55 06/19/20 25 [facility] Therapy Treatment Form completed Manfred Shelton MD [place] - [facility] 06/19/2025 14:13:24 06/18/20 25 [facility] Therapy Treatment Form completed COLEMAN MARTELL NP [place] - [facility] 06/18/2025 13:17:34 06/17/20 25 [facility] Therapy Treatment Form completed [facility] 06/17/2025 12:29:15 06/16/20 25 [facility] Therapy Treatment Form completed [facility] - [facility] 06/16/2025 12:45:53 06/15/20 25 [facility] Therapy Treatment Form completed [facility] - [facility] 06/15/2025 12:47:07 06/12/20 25 [facility] Therapy Treatment Form completed Manfred Shelton [place] - [facility] 06/12/2025 14:54:52 06/11/20 25 [facility] Therapy Treatment Form completed [facility] - [facility] 06/11/2025 13:02:39 06/10/20 25 [facility] Therapy Treatment Form completed [facility] - [facility] 06/10/2025 12:50:18 06/08/20 25 [facility] Therapy Treatment Form completed [facility] - [facility] 06/08/2025 12:56:07 06/05/20 25 [facility] Therapy Treatment Form completed Evelia Winters [place] - [facility] 06/05/2025 14:28:16 06/04/20 [...] Carolyn luan [place] - [facility] 05/26/2025 12:27:56 05/25/20 25 [facility] Therapy Treatment Form completed Carolyn luan [place] - [facility] 05/25/2025 13:12:32 05/22/20 25 [facility] Therapy Treatment Form completed Carolyn luan [place] - [facility] 05/22/2025 12:33:28 05/21/20 25 [facility] Therapy Treatment Form completed Carolyn luan [place] - [facility] 05/21/2025 12:47:49 05/20/20 [...] Oxygen Care Therapy Treatment Form completed COLEMAN JUDI, NP [place] - [facility] 04/30/2025 14:18:39 04/29/20 25 [facility] Therapy Treatment Form completed Mary Miranda [place] - [facility] 04/29/2025 13:00:12 Knee [...] Not available Not available Not available 04/23/2025 41594 3 RxNorm Luciana servin, [place] - [facility] 14:25:27 1104 Avelox medicatio n Not available Not available Not available 04/23/2025 98753 6 RxNorm Luciana servin, [place] - [facility] 14:25:52 1105 metformin medicatio n other Not available low 04/23/20252023 6809 RxNorm GI issue s Luciana Noriega null, [place] - [facility] 14:26:11 1253 Product containin g angiotens in-conver ting enzyme inhibitor (product) medicatio n cough moderate Not available 06/26/2025 66291 009 SNOMED Not Available taisha - External Data Service - prod 5 10:54:20 1254 metformin hydrochlo ride medicatio n Not available Not available Not available 06/26/2025 01663 3 RxNorm Not Available taisha - External [...] 96 % 154/74 mm[Hg] 133/67 mm[Hg] Moraima Moses [place] - [facility] 5 13:27:29 Social History None recorded. Functional Status None recorded. Mental Status None recorded. Family History Nothing Reported. Medical History Condition Response Coronary Artery Disease N Gout N Blood Diseases N Hyperthyroidism N Breast Cancer N Lung Disease N Depression Y COPD Y Hypothyroidism Y Developmental or Behavioral Disorders N Anxiety Disorder Y Muscle, Joint, or Bone Problems N Arthritis Y Cancer N Stroke N Endometriosis N Bladder or Kidney Problems N Liver Disease N Fibromyalgia N Headaches Y Kidney Disease N Allergies/Hayfever Y Heart Problems N Ear or Hearing Problems N Thyroid Problems N GI Problems N Skin Problems Y Anemia N Diabetes Y Seizures/Epilepsy N AIDS/HIV N Congestive Heart Failure (CHF) N Diverticulitis N Asthma N Heart Disease N Chronic Ear Infections N Hypertension Y Osteoporosis N Gynecological HistoryNo gynecological history recorded. Obstetrics History GPAL:G 0 P 0 0 0 0 Past Encounters Encounter ID Performer Location Encounter Start Date Encounter Closed Date Diagnosis/Indication Diagnosis SNOMED-CT Code Diagnosis ICD10 Code Diagnosis IMO Codes Diagnosis Note [id number] Manfred Shelton MD Main Office [address] [place] , [place] [address] 04/23/2025 14:15:51 04/24/2025 12:51:54 [id number] Manfred Shelton MD Main Office [address] [place] , [place] [address] 04/29/2025 10:50:02 04/29/2025 15:41:17 [id number] Manfred Shelton MD Main Office [address] [place] , [place] [address] 04/30/2025 11:16:06 04/30/2025 14:19:33 [id number] Manfred Shelton MD Main Office [address] [place] , [place] [address] 05/01/2025 10:18:55 05/01/2025 13:10:41 [id number] Manfred Shelton MD Main Office [address] [place] , [place] [address] 05/04/2025 10:46:48 05/04/2025 14:18:05 [id number] Manfred Shelton MD Main Office [address] [place] , [place] [address] 05/06/2025 10:55:59 05/06/2025 11:32:38 [id number] Manfred Shelton MD Main Office [address] [place] , [place] [address] 05/06/2025 13:04:28 05/07/2025 08:30:09 [id number] Manfred Shelton MD Main Office [address] [place] [address] 05/07/2025 10:45:55 05/08/2025 10:40:32 [id number] Manfred Shelton MD Main Office [address] [place] [address] 05/08/2025 10:55:11 05/08/2025 14:31:10 [id number] Manfred Shelton MD Main Office [address] [place] , [place] [id number] 05/08/2025 13:08:42 05/08/2025 14:13:22 [id number] Manfred Shelton MD Main Office [address] [place] [address] 05/11/2025 10:59:55 05/11/2025 14:43:45 Type 2 diabetes mellitus 99554541 E11.69 [id number] Manfred Shelton MD Main Office [address] [place] [address] 05/12/2025 10:58:25 05/12/2025 16:06:58 [id number] Manfred Shelton MD Main Office [address] [place] [address] 05/13/2025 10:26:11 05/13/2025 14:22:52 Type 2 diabetes mellitus 64891758 E11.69 [id number] Manfred Shelton MD Main Office [address] [place] [address] 05/13/2025 13:16:44 05/13/2025 14:39:17 Health Concerns Section Related Observation LastModified by Organization Detai ls LastModified Time None Recorded Concern Status LastModified by Organization Details LastModified Time None Recorded Payers Encounter Date Sequence Insurance Name Policy Number Policy Gonzales Covered Member ID Gonzales Member ID Guarantor Name 05/13/2025 2 [employer] [facility] Seema Delacruz [id number] Seema Jayme 05/13/2025 1 [employer] Seema Delacruz [id number] Seema Delacruz Notes Date Note Type Note [...]
--- OUTSIDE RECORDS SUMMARY | 2025-07-06 16:07 | XMS_ITS | Continuity of Care Document ---
Author Organization [place] [facility], Main Office Address [address] [place] [address] Care Team Providers Care Vice President Of Talent Management Name Role Phone STEPHY YUSUF Primary Care [...] Modified By Organization Details Last Modified Time 07/02/2025 [id number] BACKGROUND: Seema Delacruz is a 55 y.o. [...] Diagnosis: L97.512, E11.621 Session Notes: Today's Date 02Jul2025 HBOT session 43 of 60 Next HBOT 03Jul2025 30Jul - Patient cleared for 1st HBOT [...] full session with no problem. Antoinette Lau SERVICE CLEANER 04Aug - Patient deemed safe for HBOT [...] antibiotics for an upper respiratory infection. Nicolasa SERVICE CLEANER 07Aug- Patient cleared for HBOT today. VS stable. PAtient had little trouble reaching pressure today, but had to come out of chamber early due to needing to use restroom. She managed to do 4 segs-118 minutes. Israel.Tanner SERVICE CLEANER 08Aug - Patient cleared for HBOT today. VS stable. Patient completed full session with no problem. Antoinette Lau SERVICE CLEANER 11Aug - Patient cleared for HBOT today. [...] full session with no problem. Antoinette Lau SERVICE CLEANER 13Aug - Patient cleared for HBOT today. VS stable. Patient completed full session with no problem. Wound care to follow treatment today. Antoinette Lau APRN 14Aug - Patient cleared for HBOT today. VS stable. Patient completed full session with no problem. Antoinette Lau SERVICE CLEANER 15Aug - Patient cleared for HBOT today. [...] attempt to try again on Sunday. Nicolasa SERVICE CLEANER 18Aug - Patient cleared for HBOT today. VS stable. Patient completed full session with no problem. Antoinette Lau SERVICE CLEANER 19Aug - Patient deemed safe for HBOT [...] date andcompleted full session free of problem. [facility] 29Aug - Cleared for HBOT his date [...] full session with no problem. M.A. Judi SERVICE CLEANER 25Sep - Patient cleared for HBOT today. VS stable. Patient completed full session with no problem. Antoinette Lau SERVICE CLEANER 26Sep - Deemed safe for HBOT on this date and completed the full session uneventfully. Estefania WATERS 29Sep - Patient cleared for HBOT today. VS stable. Patient completed 3 Seg session with no problem. Antoinette Lau SERVICE CLEANER 30Sep - Patient cleared for HBOT today. VS stable. Patient completed full session with no problem. Antoinette Lau SERVICE CLEANER 01Oct - Patient cleared for HBOT today. VS stable. Patient completed full session with no problem. Antoinette Lau SERVICE CLEANER 02Oct - Cleared for HBOT this date and completed full session free of problem. [facility] [email or web address] Not available 07/03/2025 07:21:05 Reason for Referral None Reported. Problems Name Problem SNOMED Code Status Onset Date Resolution Date Notes Provider Name and Address Organization Details Recorded Time Upper respiratory infection 15180388 Active 2024 COLEMAN LAU NP null, [place] [facility] 12:18:40 Episodic migraine 1267494717394 Active 2024 COLEMAN LAU NP null, [place] [facility] 12:34:01 Type 2 diabetes mellitus 83276325 Active 2024 COLEMAN LAU NP null, [place] [facility] 15:27:12 Refractory migraine with aura 380082368 Active 2024 COLEMAN LAU NP null, [place] [...] Therapy Treatment Form completed COLEMAN LAU NP [place] - [facility] 06/30/2025 13:46:12 06/29/20 25 [facility] Therapy Treatment Form completed [facility] - [facility] 06/29/2025 13:24:58 06/26/20 25 [facility] Therapy Treatment Form completed Manfred Shelton MD [place] - [facility] 06/26/2025 16:57:55 06/25/20 25 [facility] Therapy Treatment Form completed [facility] - [facility] 06/25/2025 12:47:07 06/24/20 25 [facility] Therapy Treatment Form completed [facility] 06/24/2025 12:40:20 06/23/20 25 [facility] Therapy Treatment Form completed [facility] 06/23/2025 12:39:50 06/22/20 25 [facility] Therapy Treatment Form completed [facility] 06/22/2025 12:49:55 06/19/20 25 [facility] Therapy Treatment Form completed Manfred Shelton MD [place] [facility] 06/19/2025 14:13:24 06/18/20 25 [facility] Therapy Treatment Form completed COLEMAN LAU NP [place] - [facility] 06/18/2025 13:17:34 06/17/20 25 [facility] Therapy Treatment Form completed [facility] 06/17/2025 12:29:15 06/16/20 25 [facility] Therapy Treatment Form completed [facility] 06/16/2025 12:45:53 06/15/20 25 [facility] Therapy Treatment Form completed [facility] 06/15/2025 12:47:07 06/12/20 25 [facility] Therapy Treatment Form completed Manfred Shelton MD [place] [facility] 06/12/2025 14:54:52 06/11/20 25 [facility] Therapy Treatment Form completed [facility] 06/11/2025 13:02:39 06/10/20 25 [facility] Therapy Treatment Form completed [facility] 06/10/2025 12:50:18 06/08/20 25 [facility] Therapy Treatment Form completed [facility] [place] - [facility] 06/08/2025 12:56:07 06/05/20 25 [facility] Therapy Treatment Form completed Evelia Singh [place] - [facility] 06/05/2025 14:28:16 06/04/20 25 Wound completed COLEMAN LAU NP [place] - [facility] 06/04/2025 14:24:29 06/04/20 25 [facility] Therapy Treatment Form completed COLEMAN LAU NP [place] [facility] 06/04/2025 13:56:49 06/03/20 25 [facility] Therapy Treatment Form completed Eveliapatricia Winters [place] - [facility] 06/03/2025 14:11:11 06/02/20 25 [facility] Therapy Treatment Form completed Carolyn roland [place] - [facility] 06/02/2025 13:09:37 05/29/20 25 [facility] Therapy Treatment Form completed Carolyn roland [place] [facility] 05/29/2025 12:25:31 05/28/20 25 [facility] Therapy Treatment Form completed Carolyn luan [place] [facility] 05/28/2025 13:02:44 05/27/20 25 Wound completed COLEMNA LAU NP [place] [facility] [...] Carolyn luan [place] [facility] 05/22/2025 12:33:28 [...] Oxygen Care 04/23/2025 14:33:00 cataract surgery completed Luicana [place] - [facility] 04/23/2025 14:33:07 [...] Not available Not available Not available 04/23/2025 21325 3 RxNorm Luciana servin, [place] - [facility] 14:25:27 1104 Avelox medicatio n Not available Not available Not available 04/23/2025 78280 6 RxNorm Luciana servin, [place] - [facility] 14:25:52 1105 metformin medicatio n other Not available low 04/23/20252023 6809 RxNorm GI issue s Luciana servin, [place] - [facility] 14:26:11 1253 Product containin g angiotens in-conver ting enzyme inhibitor (product) medicatio n cough moderate Not available 06/26/2025 38640 009 SNOMED Not Available taisha - External Data Service - prod 10:54:20 1254 metformin hydrochlo ride medicatio n Not available Not available Not available 06/26/2025 87409 3 RxNorm Not Available taisha - External [...] Available No t Available Vitals Date Recorded Respiratory rate Heart rate Body temperature Oxygen saturation Oxygen saturation in Arterial blood by Pulse oximetry Heart rate Respiratory rate Body temperature Oxygen saturation Oxygen saturation in Arterial blood by Pulse oximetry Systolic And Diastolic Systolic And Diastolic Provider Name and Address Organization Details Last Updated DateTime 5 16 /min 76 /min 98.2 [degF] 88 % 88 % 68 /min 16 /min 97.9 [degF] 93 % 93 % 145/81 mm[Hg] 110/58 mm[Hg] Paula [facility] 5 13:07:10 Date Recorded Heart rate Respiratory rate Body [...] 90 % 153/83 mm[Hg] 123/61 mm[Hg] Paula Licea [place] - [facility] 5 12:47:55 Social [...] or Kidney Problems N Liver Disease N Headaches Y Fibromyalgia N Kidney Disease N Allergies/Hayfever Y Heart Problems [...] MD Main Office [address] [place] [address] 06/02/2025 10:25:50 06/02/2025 14:14:27 [id number] Manfred Shelton MD Main Office [address] [place] [id number] 06/03/2025 10:16:52 06/03/2025 14:45:20 [id number] Manfred Shelton MD Main Office [address] [place] [id number] 06/04/2025 10:31:23 06/04/2025 13:58:07 [id number] Manfred Shelton MD Main Office [address] [place] [id number] 06/04/2025 14:13:52 06/04/2025 14:25:08 [id number] Manfred Shelton MD Main Office [address] [place] [address] 06/05/2025 10:55:07 06/05/2025 16:50:44 [id number] Manfred Shelton MD Main Office [address] [place] [address] 06/08/2025 10:25:37 06/08/2025 14:39:12 [id number] Manfred Shelton MD Main Office [address] [place] [address] 06/10/2025 10:19:13 06/10/2025 13:21:20 [id number] Manfred Shelton MD Main Office [address] [place] [address] 06/11/2025 10:35:04 06/11/2025 14:11:07 [id number] Manfred Shelton MD Main Office [address] [place] [address] 06/12/2025 10:59:45 06/12/2025 14:56:49 [id number] Manfred Shelton MD Main Office [address] [place] [address] 06/15/2025 10:50:33 06/15/2025 13:14:21 [id number] Manfred Shelton MD Main Office [address] [place] [address] 06/16/2025 10:14:56 06/16/2025 13:52:36 [id number] Manfred Shelton MD Main Office [address] [place] [address] 06/17/2025 10:28:52 06/17/2025 13:18:56 [id number] Manfred Shelton MD Main Office [address] [place] [address] 06/18/2025 10:16:09 06/18/2025 13:16:04 [id number] Manfred Shelton MD Main Office [address] [place] [address] 06/19/2025 10:44:19 06/19/2025 14:15:39 [id number] COLEMANPATRICE LAU, ABDOULAYE Main Office [address] [place] [address] 06/22/2025 10:36:06 06/22/2025 14:32:28 [id number] Manfred Shelton MD Main Office [address] [place] [address] 06/23/2025 10:18:15 06/23/2025 14:03:00 [id number] Manfred Shelton MD Main Office [address] [place] [address] 06/24/2025 10:23:16 06/24/2025 13:37:08 [id number] Manfred Shelton MD Main Office [address] [place] [address] 06/25/2025 10:19:36 06/25/2025 14:27:35 [id number] Manfred Shelton MD Main Office [address] [place] [address] 06/26/2025 10:52:38 06/26/2025 16:27:47 [id number] Manfred Shelton MD Main Office [address] [place] [address] 06/29/2025 10:44:14 06/29/2025 13:39:12 [id number] Manfred Shelton MD Main Office [address] [place] [address] 06/30/2025 10:42:21 06/30/2025 13:46:39 [id number] Manfred Shelton MD Main Office [address] [place] [id number] 07/01/2025 10:49:18 07/01/2025 13:25:24 [id number] Manfred Shelton MD Main Office [address] [place] [address] 07/02/2025 10:15:06 07/03/2025 07:21:23 Health Concerns Section Related Observation LastModified by Organization Detai ls LastModified Time None Recorded Concern Status LastModified by Organization Details LastModified Time None Recorded Payers Encounter Date Sequence Insurance Name Policy Number Policy Gonzales Covered Member ID Gonzales Member ID Guarantor Name 07/02/2025 2 [employer] Seema Delacurz [id number] Seema Delacruz 07/02/2025 1 [employer] Seema Delacruz [id number] Seema Delacruz OBGyn Episode No OBEpisode recorded.
--- OUTSIDE RECORDS SUMMARY | 2025-07-06 16:08 | XMS_ITS | Continuity of Care Document ---
Author Organization [place] [facility], Main Office Address [address] [place] [address] Care Team Providers Care Project Manager Retail Name Role Phone STEPHY YUSUF Primary Care [...] Modified By Organization Details Last Modified Time 06/15/2025 6622 BACKGROUND: Seema Delacruz is a 55 y.o. [...] E11.621 ___ ___ Session Notes: Today's Date [id number] HBOT session 30 of 40 Next HBOT [id number] 30Jul - Patient cleared for 1st HBOT [...] full session with no problem. Antoinette Lau TENNIS DIRECTOR 04Aug - Patient deemed safe for HBOT today. VS stable. Patient completed full session with no problem. Antoinette Lau TENNIS DIRECTOR 05Aug - patient out for another appt. [...] antibiotics for an upper respiratory infection. Nicolasa TENNIS DIRECTOR 07Aug- Patient cleared for HBOT today. VS stable. PAtient had little trouble reaching pressure today, but had to come out of chamber early due to needing to use restroom. She managed to do 4 segs-118 minutes. Israel.Tanner TENNIS DIRECTOR 08Aug - Patient cleared for HBOT today. VS stable. Patient completed full session with no problem. Antoinette Lau TENNIS DIRECTOR 11Aug - Patient cleared for HBOT today. [...] full session with no problem. [place].Jessica Lau TENNIS DIRECTOR 13Aug - Patient cleared for HBOT today. VS stable. Patient completed full session with no problem. Wound care to follow treatment today. Antoinette Lau TENNIS DIRECTOR 14Aug - Patient cleared for HBOT today. VS stable. Patient completed full session with no problem. Antoinette Lau TENNIS DIRECTOR 15Aug - Patient cleared for HBOT today. [...] attempt to try again on Sunday. Nicolasa TENNIS DIRECTOR 18Aug - Patient cleared for HBOT today. VS stable. Patient completed full session with no problem. Antoinette Lau TENNIS DIRECTOR 19Aug - Patient deemed safe for HBOT today. VS stable. FSBS within range. Patient completed full session with no problem. Antoinette Lau TENNIS DIRECTOR 2015Aug - Patient cleared for HBOT today. [...] date andcompleted full session free of problem. [facility] 29Aug - Cleared for HBOT his date [...] full session with no problem. IsraelIlsa Lau TENNIS DIRECTOR 10Sep - Patient deemed safe for HBOT today. VS stable. Patient completed full session with no problem. IsraelIlsa Lau TENNIS DIRECTOR 11Sep - Patient cleared for HBOT today. VS stable. Patient completed full session with no problem. IsraelDeepaliMonicaDeepali Lau TENNIS DIRECTOR 12Sep - Found safe for HBOT this date. Completed curtailed session free of problem. Session shortened to satisfy demand of ride provider. Estefania WATERS 15Sep - Patient cleared for HBOT today. VS stable. Patient completed full session with no problem. IsraelIlsa Lau TENNIS DIRECTOR Not available 06/15/2025 13:14:08 Reason for Referral None Reported. Problems Name Problem SNOMED Code Status Onset Date Resolution Date Notes Provider Name and Address Organization Details Recorded Time Upper respiratory infection 10422264 Active 2024 COLEMAN LAU NP null, [place] - [facility] 12:18:40 Episodic migraine 7780207785950 Active 2024 COLEMAN LAU NP null, [place] [facility] 12:34:01 Type 2 diabetes mellitus 96548048 Active 2024 COLEMAN LAU NP null, [place] [facility] 15:27:12 Refractory migraine with aura 417237082 Active 2024 COLEMAN LAU NP null, [place] [...] Therapy Treatment Form completed COLEMAN LAU NP [place] [facility] 06/30/2025 13:46:12 06/29/20 25 [facility] Therapy Treatment Form completed [facility] - [facility] 06/29/2025 13:24:58 06/26/20 25 [facility] Therapy Treatment Form completed Manfred Shelton MD [place] - [facility] 06/26/2025 16:57:55 06/25/20 25 [facility] Therapy Treatment Form completed [facility] - [facility] 06/25/2025 12:47:07 06/24/20 25 [facility] Therapy Treatment Form completed [facility] 06/24/2025 12:40:20 06/23/20 25 [facility] Therapy Treatment Form completed [facility] 06/23/2025 12:39:50 06/22/20 25 [facility] Therapy Treatment Form completed [facility] 06/22/2025 12:49:55 06/19/20 25 [facility] Therapy Treatment Form completed Manfred Shelton [place] [facility] 06/19/2025 14:13:24 06/18/20 25 [facility] Therapy Treatment Form completed COLEMAN LAU NP [place] [facility] 06/18/2025 13:17:34 06/17/20 25 [facility] Therapy Treatment Form completed [facility] 06/17/2025 12:29:15 06/16/20 25 [facility] Therapy Treatment Form completed [facility] - [facility] 06/16/2025 12:45:53 06/15/20 25 [facility] Therapy Treatment Form completed [facility] - [facility] 06/15/2025 12:47:07 06/12/20 25 [facility] Therapy Treatment Form completed Manfred Shelton MD [facility] 06/12/2025 14:54:52 06/11/20 25 [facility] Therapy Treatment Form completed [facility] 06/11/2025 13:02:39 06/10/20 25 [facility] Therapy Treatment Form completed [facility] 06/10/2025 12:50:18 06/08/20 25 [facility] Therapy Treatment Form completed [facility] 06/08/2025 12:56:07 06/05/20 25 [facility] [...] Care Therapy Treatment Form completed Carolyn roland [place] - [facility] 06/02/2025 13:09:37 05/29/20 25 [facility] Therapy Treatment Form completed [facility] - [facility] 05/29/2025 12:25:31 05/28/20 25 [facility] Therapy Treatment Form completed [facility] [place] [facility] 05/28/2025 13:02:44 05/27/20 25 Wound completed COLEMAN LAU NP [place] - [facility] 05/27/2025 13:18:22 05/27/20 25 [facility] Therapy Treatment Form completed [facility] - [facility] 05/27/2025 12:50:01 05/26/20 25 Nurse Note completed Luciana Noriega [place] [facility] 05/26/2025 16:40:42 05/26/20 25 [facility] Therapy Treatment Form completed [facility] [place] [facility] 05/26/2025 12:27:56 05/25/20 25 [facility] Therapy Treatment Form completed [facility] [place] [facility] 05/25/2025 13:12:32 05/22/20 25 [facility] Therapy Treatment Form completed [facility] [place] [facility] 05/22/2025 12:33:28 05/21/20 25 [facility] Therapy Treatment Form completed [facility] [place] [facility] 05/21/2025 12:47:49 05/20/20 25 Wound completed COLEMAN LAU NP [place] [facility] 05/20/2025 13:22:44 05/20/20 25 [facility] Therapy Treatment Form completed Moraima BERNAL - [facility] 05/20/2025 12:52:27 05/19/20 25 [facility] Therapy Treatment Form completed Evelia Marinahiram [place] - [facility] 05/19/2025 13:53:26 [...] Mary Miranda [place] - [facility] 05/01/2025 12:20:36 04/30/20 [...] Not available Not available Not available 04/23/2025 83391 3 RxNorm Luciana servin, [place] - [facility] 14:25:27 1104 Avelox medicatio n Not available Not available Not available 04/23/2025 76630 6 RxNorm Luciana servin, [place] - [facility] 14:25:52 1105 metformin medicatio n other Not available low 04/23/20252023 6809 RxNorm GI issue s Luciana Noriega null, [place] - [facility] 14:26:11 1253 Product containin g angiotens in-conver ting enzyme inhibitor (product) medicatio n cough moderate Not available 06/26/2025 50956 009 SNOMED Not Available taisha - External Data Service - prod 5 10:54:20 1254 metformin hydrochlo ride medicatio n Not available Not available Not available 06/26/2025 77880 3 RxNorm Not Available taisha - External [...] Updated DateTime 5 89 /min 16 /min 98.1 [degF] 87 % 87 % 71 /min 16 /min 97.7 [degF] 91 % 91 % 177/79 mm[Hg] 160/86 mm[Hg] [facility] - [facility] 5 12:47:21 Social History None recorded. Functional Status None [...] ICD10 Code Diagnosis IMO Codes Diagnosis Note [id number] Manfred Shelton MD Main Office [address] [place] [address] 05/15/2025 10:48:13 05/18/2025 08:48:44 [id number] Manfred Shelton MD Main Office [address] [place] [address] 05/18/2025 10:59:56 05/18/2025 15:48:37 Type 2 diabetes mellitus 89717931 E11.69 [id number] [id number] Manfred Shelton MD Main Office [address] [place] [address] 05/19/2025 11:07:27 05/19/2025 14:52:31 5002 Mnafred Shelton MD Main Office [address] [place] [address] 05/20/2025 11:36:16 05/20/2025 13:20:26 5003 Manfred Shelton MD Main Office [address] [place] [address] 05/20/2025 12:28:38 05/20/2025 13:24:07 5019 Manfred Shelton MD Main Office [address] [place] [address] 05/21/2025 10:14:02 05/22/2025 08:40:53 [id number] Manfred Shelton MD Main Office [address] [place] [address] 05/22/2025 10:05:00 05/22/2025 14:31:52 5054 COLEMAN LAU NP Main Office [address] [place] [address] 05/25/2025 10:54:17 05/25/2025 14:23:41 5071 COLEMAN LAU NP Main Office [address] [place] [address] 05/26/2025 10:04:52 05/26/2025 13:22:24 5083 COLEMAN JASBIR, COMMERCIAL ESTIMATOR Main Office [address] [place] [address] 05/26/2025 16:38:48 05/26/2025 16:40:45 5087 COLEMAN JASBIR, COMMERCIAL ESTIMATOR Main Office [address] [place] [address] 05/27/2025 10:11:43 05/27/2025 13:22:20 5093 COLEMAN JASBIR, COMMERCIAL ESTIMATOR Main Office [address] [place] [address] 05/27/2025 13:11:38 05/27/2025 13:19:10 [id number] Manfred Shelton MD Main Office [address] [place] [address] 05/28/2025 10:14:13 05/29/2025 08:47:13 [id number] Manfred Shelton MD Main Office [address] [place] [address] 05/29/2025 10:04:58 05/29/2025 17:43:48 [id number] Manfred Shelton MD Main Office [address] [place] [address] 06/02/2025 10:25:50 06/02/2025 14:14:27 [id number] Manfred Shelton MD Main Office [address] [place] [address] 06/03/2025 10:16:52 06/03/2025 14:45:20 [id number] Manfred Shelton MD Main Office [address] [place] [address] 06/04/2025 10:31:23 06/04/2025 13:58:07 [id number] Manfred Shelton MD Main Office [address] [place] [address] 06/04/2025 14:13:52 06/04/2025 14:25:08 [id number] Manfred Shelton MD Main Office [address] [place] [address] 06/05/2025 10:55:07 06/05/2025 16:50:44 5202 Manfred Shelton MD Main Office [address] [place] [address] 06/08/2025 10:25:37 06/08/2025 14:39:12 [id number] Manfred Shelton MD Main Office [address] [place] [address] 06/10/2025 10:19:13 06/10/2025 13:21:20 [id number] Manfred Shelton MD Main Office [address] [place] [address] 06/11/2025 10:35:04 06/11/2025 14:11:07 [id number] Manfred Shelton MD Main Office [address] [place] [address] 06/12/2025 10:59:45 06/12/2025 14:56:49 [id number] Manfred Shelton MD Main Office [address] [place] [address] 06/15/2025 10:50:33 06/15/2025 13:14:21 Health Concerns Section Related Observation LastModified by Organization Detai ls LastModified Time None Recorded Concern Status LastModified by Organization Details LastModified Time None Recorded Payers Encounter Date Sequence Insurance Name Policy Number Policy Gonzales Covered Member ID Gonzales Member ID Guarantor Name 06/15/2025 2 [employer] Seema Delacruz [id number] Seema Delacruz 06/15/2025 1 [employer] Seema Delacruz [id number] Seema Delacruz OBGyn Episode No OBEpisode recorded.
--- OUTSIDE RECORDS SUMMARY | 2025-07-06 16:08 | XMS_ITS | Continuity of Care Document ---
Author Organization [place] [facility], Main Office Address [address] [place] [address] Care Team Providers Care Soccer Player Name Role Phone STEPHY YUSUF Primary Care Provider [phone] Assessment No assessment recorded. Plan of Treatment [...] Modified By Organization Details Last Modified Time 06/24/2025 3230 BACKGROUND: Seema Delacruz is a 55 y.o. [...] E11.621 ___ ___ Session Notes: Today's Date [id number] HBOT session 37 of 40 Next HBOT [id number] 30Jul - Patient cleared for 1st HBOT [...] full session with no problem. [place].Jessica Lau FILM PRODUCER 04Aug - Patient deemed safe for HBOT today. VS stable. Patient completed full session with no problem. Antoinette Lau FILM PRODUCER 05Aug - patient out for another appt. [...] antibiotics for an upper respiratory infection. Nicolasa FILM PRODUCER 07Aug- Patient cleared for HBOT today. VS stable. PAtient had little trouble reaching pressure today, but had to come out of chamber early due to needing to use restroom. She managed to do 4 segs-118 minutes. Israel.Tanner FILM PRODUCER 08Aug - Patient cleared for HBOT today. VS stable. Patient completed full session with no problem. Antoinette Lau FILM PRODUCER 11Aug - Patient cleared for HBOT today. [...] full session with no problem. Antoinette Lau FILM PRODUCER 13Aug - Patient cleared for HBOT today. VS stable. Patient completed full session with no problem. Wound care to follow treatment today. Antoinette Lau FILM PRODUCER 14Aug - Patient cleared for HBOT today. VS stable. Patient completed full session with no problem. Antoinette Lau FILM PRODUCER 15Aug - Patient cleared for HBOT today. [...] attempt to try again on Sunday. Nicolasa FILM PRODUCER 18Aug - Patient cleared for HBOT today. VS stable. Patient completed full session with no problem. Antoinette Lau FILM PRODUCER 19Aug - Patient deemed safe for HBOT today. VS stable. FSBS within range. Patient completed full session with no problem. Antoinette Lau FILM PRODUCER 2015Aug - Patient cleared for HBOT today. [...] andcompleted full session free of problem. [facility] 29Aug - Cleared for HBOT his date [...] was to proceed to another medical appointment. [facility] 22Sep - Patient cleared for HBOT today. VS stable. Patient completed full session with no problem. Antoinette Lau APRN 23Sep - Patient cleared for HBOT today. VS stable. Patient completed full session with no problem. Antoinette Lau APRN 24Sep - Patient cleared for HBOT today. VS stable. Patient completed full session with no problem. Antoinette Lau APRN Not available 06/24/2025 13:37:01 Reason for Referral None Reported. Problems Name Problem SNOMED Code Status Onset Date Resolution Date Notes Provider Name and Address Organization Details Recorded Time Upper respiratory infection 67236653 Active 2024 COLEMAN LAU NP null, [place] - [facility] 12:18:40 Episodic migraine 4612006807145 06 Active 2024 COLEMAN LAU NP [place] [facility] 12:34:01 Type 2 diabetes mellitus 13162512 Active 2024 COLEMAN LAU NP [place] [facility] 15:27:12 Refractory migraine with aura 753619814 Active 2024 COLEMAN LAU NP null, [place] [facility] 10:56:52 Problem Notes None recorded. Procedures Surgical History Date Name Laterality Status Provider Name and Address Organization Details Recorded Time 07/06/20 [facility] Therapy Treatment Form completed Carolyn roland [place] - [facility] 07/06/2025 13:06:29 07/03/20 25 [facility] Therapy Treatment Form completed Paulajuancarlos Licea [place] - [facility] 07/03/2025 [...] Shelton MD [place] [facility] 06/26/2025 16:57:55 06/25/20 25 [facility] Therapy Treatment Form completed Carolyn roland [place] - [facility] 06/25/2025 12:47:07 06/24/20 25 [facility] Therapy Treatment Form completed Carolyn roland [place] - [facility] 06/24/2025 12:40:20 06/23/20 25 [facility] Therapy Treatment Form completed [facility] - [facility] 06/23/2025 12:39:50 06/22/20 25 [facility] Therapy Treatment Form completed [facility] - [facility] 06/22/2025 12:49:55 06/19/20 25 [facility] Therapy Treatment Form completed Manfred Shelton MD [place] [facility] 06/19/2025 14:13:24 06/18/20 25 [facility] Therapy Treatment Form completed COLEMAN LAU NP [place] [facility] 06/18/2025 13:17:34 06/17/20 25 [facility] Therapy Treatment Form completed [facility] - [facility] 06/17/2025 12:29:15 06/16/20 25 [facility] Therapy Treatment Form completed [facility] - [facility] 06/16/2025 12:45:53 06/15/20 25 [facility] Therapy Treatment Form completed [facility] - [facility] 06/15/2025 12:47:07 06/12/20 25 [facility] Therapy Treatment Form completed Manfred Shelton [place] [facility] 06/12/2025 14:54:52 06/11/20 25 [facility] Therapy Treatment Form completed [facility] - [facility] 06/11/2025 13:02:39 06/10/20 25 [facility] Therapy Treatment Form completed [facility] - [facility] 06/10/2025 12:50:18 06/08/20 25 [facility] Therapy Treatment Form completed [facility] - [facility] 06/08/2025 12:56:07 [...] Carolyn luan [place] - [facility] 06/02/2025 13:09:37 05/29/20 25 [facility] Therapy Treatment Form completed [facility] [place] [facility] 05/29/2025 12:25:31 05/28/20 25 [facility] Therapy Treatment Form completed [facility] [place] [facility] 05/28/2025 [...] Oxygen Care Therapy Treatment Form completed [facility] [place] [facility] 05/26/2025 12:27:56 05/25/20 25 [facility] Therapy Treatment Form completed Carolyn luan [place] - [facility] 05/25/2025 13:12:32 05/22/20 25 [facility] Therapy Treatment Form completed [facility] [place] [facility] 05/22/2025 12:33:28 05/21/20 25 [facility] Therapy Treatment Form completed Carolyn luan [place] - [facility] 05/21/2025 12:47:49 05/20/20 [...] Care Therapy Treatment Form completed Carolyn roland [place] - [facility] 05/04/2025 12:48:46 [...] Not available Not available Not available 04/23/2025 84241 3 RxNorm Luciana servin, [place] - [facility] 14:25:27 1104 Avelox medicatio n Not available Not available Not available 04/23/2025 68414 6 RxNorm Luciana servin, [place] - [facility] 14:25:52 1105 metformin medicatio n other Not available [facility] 04/23/20252023 6809 RxNorm GI issue s Luciana Noriega null, [place] - [facility] 14:26:11 1253 Product containin g angiotens in-conver ting enzyme inhibitor (product) medicatio n cough moderate Not available 06/26/2025 24187 009 SNOMED Not Available taisha - External Data Service - prod 5 10:54:20 1254 metformin hydrochlo ride medicatio n Not available Not available Not available 06/26/2025 19708 3 RxNorm Not Available [employer] [place] External Data Service - prod 5 10:54:20 [...] Updated DateTime 5 81 /min 16 /min 98.1 [degF] 91 % 91 % 74 /min 16 /min 97.8 [degF] 94 % 94 % 149/78 mm[Hg] 116/69 mm[Hg] [facility] - [facility] 5 12:40:36 Social History None recorded. Functional Status None [...] COLEMAN LAU NP Main Office [address] [address] [place] [address] 05/25/2025 10:54:17 05/25/2025 14:23:41 5071 COLEMAN LAU NP Main Office [address] [place] [address] 05/26/2025 10:04:52 05/26/2025 13:22:24 5083 COLEMAN JASBIR, CAR HIKER Main Office [address] [place] [address] 05/26/2025 16:38:48 05/26/2025 16:40:45 5087 COLEMAN LAU, CAR HIKER Main Office [address] [place] [address] 05/27/2025 10:11:43 05/27/2025 13:22:20 5093 COLEMAN LAU, CAR HIKER Main Office [address] [place] [address] 05/27/2025 13:11:38 05/27/2025 13:19:10 5104 Manfred Shelton MD Main Office [address] [place] [address] 05/28/2025 10:14:13 05/29/2025 08:47:13 5117 Manfred Shelton MD Main Office [address] [place] [address] 05/29/2025 10:04:58 05/29/2025 17:43:48 5132 Manfred Shelton MD Main Office [address] [place] [address] 06/02/2025 10:25:50 06/02/2025 14:14:27 5149 Manfred Shelton MD Main Office [address] [place] [address] 06/03/2025 10:16:52 06/03/2025 14:45:20 5163 Manfred Shelton MD Main Office [address] [place] [address] 06/04/2025 10:31:23 06/04/2025 13:58:07 5173 Manfred Shelton MD Main Office [address] [place] [address] 06/04/2025 14:13:52 06/04/2025 14:25:08 5186 Manfred Shelton MD Main Office [address] [place] [address] 06/05/2025 10:55:07 06/05/2025 16:50:44 5202 Manfred Shelton MD Main Office [address] [place] [address] 06/08/2025 10:25:37 06/08/2025 14:39:12 5237 Manfred Shelton MD Main Office [address] [place] [address] 06/10/2025 10:19:13 06/10/2025 13:21:20 5255 Manfred Shelton MD Main Office [address] [place] [address] 06/11/2025 10:35:04 06/11/2025 14:11:07 5277 Manfred Shelton MD Main Office [address] [place] [address] 06/12/2025 10:59:45 06/12/2025 14:56:49 5293 Manfred Shelton MD Main Office [address] [place] [address] 06/15/2025 10:50:33 06/15/2025 13:14:21 5311 Manfred Shelton MD Main Office [address] [place] [address] 06/16/2025 10:14:56 06/16/2025 13:52:36 5329 Manfred Shelton MD Main Office [address] [place] [address] 06/17/2025 10:28:52 06/17/2025 13:18:56 5341 Manfred Shelton MD Main Office [address] [place] [address] 06/18/2025 10:16:09 06/18/2025 13:16:04 5358 Manfred Shelton MD Main Office [address] [place] [address] 06/19/2025 10:44:19 06/19/2025 14:15:39 5367 COLEMAN LAU NP Main Office [address] [place] [address] 06/22/2025 10:36:06 06/22/2025 14:32:28 5385 Manfred Shelton MD Main Office [address] [place] [address] 06/23/2025 10:18:15 06/23/2025 14:03:00 5400 Manfred Shelton MD Main Office [address] [place] [address] 06/24/2025 10:23:16 06/24/2025 13:37:08 Health Concerns Section Related Observation LastModified by Organization Detai ls LastModified Time None Recorded Concern Status LastModified by Organization Details LastModified Time None Recorded Payers Encounter Date Sequence Insurance Name Policy Number Policy Gonzales Covered Member ID Gonzales Member ID Guarantor Name 06/24/2025 2 [employer] [facility] Seema Delacruz [id number] Seema Delacruz 06/24/2025 1 [employer] Seema Delacruz [id number] Seema Delacruz OBGyn Episode No OBEpisode recorded.
--- OUTSIDE RECORDS SUMMARY | 2025-07-06 16:09 | XMS_ITS | Continuity of Care Document ---
Author Organization [place] - [facility], Main Office Address [address] [place] [address] Care Team Providers Care Server Systems Administrator Name Role Phone STEPHY YUSUF Primary Care Provider [phone] Assessment No assessment recorded. Plan of Treatment [...] Modified By Organization Details Last Modified Time 05/12/2025 2199 BACKGROUND: Seema Delacruz is a 55 y.o. [...] E11.621 ___ ___ Session Notes: Today's Date [id number] HBOT session 9 of 40 Next HBOT [id number] 30Jul - Patient cleared for 1st HBOT [...] her wear ear plugs during treatment. Nicolasa RECEIVING BARN CUSTODIAN 31July - Patient cleared for HBOT today. [...] slightly red, but she was asymptomatic. [place].Tanner RECEIVING BARN CUSTODIAN 01Aug - Patient deemed safe for HBOT today. VS stable. Patient completed full session with no problem. [place].Jessica Lau RECEIVING BARN CUSTODIAN 04Aug - Patient deemed safe for HBOT today. VS stable. Patient completed full session with no problem. Antoinette Lau RECEIVING BARN CUSTODIAN 05Aug - patient out for another appt. [...] antibiotics for an upper respiratory infection. Nicolasa RECEIVING BARN CUSTODIAN 07Aug- Patient cleared for HBOT today. VS stable. PAtient had little trouble reaching pressure today, but had to come out of chamber early due to needing to use restroom. She managed to do 4 segs-118 minutes. Nicolasa RECEIVING BARN CUSTODIAN 08Aug - Patient cleared for HBOT today. VS stable. Patient completed full session with no problem. Antoinette Lau RECEIVING BARN CUSTODIAN 11Aug - Patient cleared for HBOT today. [...] no problem. Antoinette Lau APRN Not available 05/12/2025 16:06:52 Reason for Referral None Reported. Problems Name Problem SNOMED Code Status Onset Date Resolution Date Notes Provider Name and Address Organization Details Recorded Time Upper respiratory infection 56132789 Active 2024 ABDOULAYE HAQ, [place] - [facility] 12:18:40 Episodic migraine 8880011224116 Active 2024 COLEMAN LAU NP null, [place] - [facility] 5 12:34:01 Type 2 diabetes mellitus 72521920 Active 2024 ABDOULAYE HAQ, [place] - [facility] 15:27:12 Refractory migraine with aura 641519840 Active 2024 ABDOULAYE HAQ, [place] - [facility] 10:56:52 Problem Notes None recorded. Procedures Surgical History Date Name Laterality Status Provider Name and Address Organization Details Recorded Time 07/06/20 25 [facility] Therapy Treatment Form completed Carolyn BERNAL - [facility] 07/06/2025 13:06:29 07/03/20 25 [facility] Therapy Treatment Form completed [place]uala [place]icea [place] - [facility] 07/03/2025 12:47:29 07/02/20 25 [facility] Therapy Treatment Form completed Paula BERNAL - [facility] 07/02/2025 13:06:39 07/01/20 25 [facility] Therapy Treatment Form completed Paula [place]ice[place] - [facility] 07/01/2025 13:05:37 06/30/20 25 [facility] Therapy Treatment Form completed COLEMAN LAU NP [place] [facility] 06/30/2025 13:46:12 06/29/20 25 [facility] Therapy Treatment Form completed [facility] - [facility] 06/29/2025 13:24:58 06/26/20 25 [facility] Therapy Treatment Form completed Manfred Shelton [place] [facility] 06/26/2025 16:57:55 06/25/20 25 [facility] Therapy Treatment Form completed [facility] - [facility] 06/25/2025 12:47:07 06/24/20 25 [facility] Therapy Treatment Form completed [facility] - [facility] 06/24/2025 12:40:20 06/23/20 25 [facility] Therapy Treatment Form completed [facility] - [facility] 06/23/2025 12:39:50 06/22/20 25 [facility] Therapy Treatment Form completed [facility] - [facility] 06/22/2025 12:49:55 06/19/20 25 [facility] Therapy Treatment Form completed Manfred Shelton [place] [facility] 06/19/2025 14:13:24 06/18/20 25 [facility] Therapy Treatment Form completed COLEMAN LAU NP [place] [facility] 06/18/2025 13:17:34 06/17/20 25 [facility] Therapy Treatment Form completed [facility] - [facility] 06/17/2025 12:29:15 06/16/20 25 [facility] Therapy Treatment Form completed [facility] - [facility] 06/16/2025 12:45:53 06/15/20 25 [facility] Therapy Treatment Form completed [facility] - [facility] 06/15/2025 12:47:07 06/12/20 25 [facility] Therapy Treatment Form completed Manfred Shelton MD [place] - [facility] 06/12/2025 14:54:52 06/11/20 25 [facility] Therapy Treatment Form completed [facility] - [facility] 06/11/2025 13:02:39 06/10/20 25 [facility] Therapy Treatment Form completed [facility] - [facility] 06/10/2025 12:50:18 06/08/20 25 [facility] Therapy Treatment Form completed [facility] - [facility] 06/08/2025 12:56:07 06/05/20 25 [facility] Therapy Treatment Form completed Eveliapatricia Winetrs [place] - [facility] 06/05/2025 14:28:16 [...] [facility] Therapy Treatment Form completed [facility] - [facility] 06/02/2025 13:09:37 05/29/20 25 [facility] Therapy Treatment Form completed [facility] - [facility] 05/29/2025 12:25:31 05/28/20 25 [facility] Therapy Treatment Form completed [facility] - [facility] 05/28/2025 13:02:44 05/27/20 25 Wound completed COLEMAN LAU NP [place] - [facility] 05/27/2025 13:18:22 05/27/20 25 [facility] Therapy Treatment Form completed [facility] - [facility] 05/27/2025 12:50:01 05/26/20 25 Nurse Note completed Luciana Noriega [place] [facility] 05/26/2025 16:40:42 05/26/20 25 [facility] Therapy Treatment Form completed [facility] - [facility] 05/26/2025 12:27:56 05/25/20 25 [facility] Therapy Treatment Form completed [facility] - [facility] 05/25/2025 13:12:32 05/22/20 25 [facility] Therapy Treatment Form completed Carolyn sharp [place] - [facility] 05/22/2025 12:33:28 [...] Mary Riveroer [place] - [facility] 05/08/2025 13:37:30 05/07/20 25 [facility] Therapy Treatment Form completed Mary Riveroer [place] - [facility] 05/07/2025 13:01:51 05/06/20 25 Wound completed COLEMANPATRICE LAU NP [place] [facility] [...] Not available Not available Not available 04/23/2025 09988 3 RxNorm Luciana servin, [place] - [facility] 14:25:27 1104 Avelox medicatio n Not available Not available Not available 04/23/2025 41744 6 RxNorm [place] - [facility] 14:25:52 1105 metformin medicatio n other Not available low 04/23/20252023 6809 RxNorm GI issue s [place] - [facility] 14:26:11 1253 Product containin g angiotens in-conver ting enzyme inhibitor (product) medicatio n cough moderate Not available 06/26/2025 02229 009 SNOMED Not Available taisha - External Data [employer] - prod 10:54:20 1254 metformin hydrochlo ride medicatio n Not available Not available Not available 06/26/2025 47102 3 RxNorm Not Available [employer] - prod 10:54:20 Medications Name [...] Updated DateTime 5 80 /min 16 /min 97.9 [degF] 92 % 92 % 16 /min 80 /min 98.6 [degF] 96 % 96 % 138/62 mm[Hg] 126/66 mm[Hg] Mary Miranda [place] - [facility] 5 13:20:52 [...] Office [address] [place] [address] 04/23/2025 14:15:51 04/24/2025 12:51:54 [id number] Manfred Shelton MD Main Office [address] [facility] [place] [address] 04/29/2025 10:50:02 04/29/2025 15:41:17 [id number] Manfred Shelton MD Main Office [address] [facility] [place] [address] 04/30/2025 11:16:06 04/30/2025 14:19:33 4714 Manfred Shelton MD Main Office [address] [facility] [place] [address] 05/01/2025 10:18:55 05/01/2025 13:10:41 4729 Manfred Shelton MD Main Office [address] [place] [address] 05/04/2025 10:46:48 05/04/2025 14:18:05 4767 Manfred Shelton MD Main Office [address] [place] [address] 05/06/2025 10:55:59 05/06/2025 11:32:38 [id number] Manfred Shelton MD Main Office [address] [place] [address] 05/06/2025 13:04:28 05/07/2025 08:30:09 [id number] Manfred Shelton MD Main Office [address] [place] [address] 05/07/2025 10:45:55 05/08/2025 10:40:32 [id number] Manfred Shelton MD Main Office [address] [place] [address] 05/08/2025 10:55:11 05/08/2025 14:31:10 [id number] Manfred Shelton MD Main Office [address] [place] [address] 05/08/2025 13:08:42 05/08/2025 14:13:22 4821 Manfred Shelton MD Main Office [address] [place] [address] 05/11/2025 10:59:55 05/11/2025 14:43:45 Type 2 diabetes mellitus 17168071 E11.69 [id number] Manfred Shelton MD Main Office [address],[place] [address] 05/12/2025 10:58:25 05/12/2025 16:06:58 Health Concerns Section Related Observation LastModified by Organization Detai ls LastModified Time None Recorded Concern Status LastModified by Organization Details LastModified Time None Recorded Payers Encounter Date Sequence Insurance Name Policy Number Policy Gonzales Covered Member ID Gonzales Member ID Guarantor Name 05/12/2025 2 [employer] Seema Delacruz [id number] Seema Delacruz 05/12/2025 1 [employer] Seema Delacruz [id number] Seema Delacruz OBGyn Episode No OBEpisode recorded.
--- OUTSIDE RECORDS SUMMARY | 2025-07-06 16:09 | XMS_ITS | Continuity of Care Document ---
Author Organization [place] [facility], Main Office Address [address] [place] [address] Care Team Providers Care Optical Mechanic Apprentice Name Role Phone YUSUF KEYES Primary Care Provider Assessment Encounter Date Assessment Date Assessment LastModified by Organization Details LastModified Time 06/04/2025 06/04/2025 Seema Delacruz is a 55 y.o. female [...] into Lymphedemia pumps for her. Not available 06/04/2025 14:23:54 Plan of Treatment Reminders Order Date Submit [...] By Organization Details Last Modified Time 06/04/2025 5173 Cleanse wound with NS and gauze. Place silver Alginate to wound, cover with gauze, ABD pad, kerlix, and secure with joan wrap. Change 3 times weekly. Not available 06/04/2025 14:23:55 05/06/2025 - No sharp Debridement today in [...] Kerlix, and an joan wrap to secure. M.Monica.Judi MINISTER 05/13/2025 - No sharp Debridement today in clinic. We are assisting Dr. Ortiz with the patients wound care. Wound cleansed with NS and gauze, applied silver Alginate, gauze, abd pad, Kerlix, and an joan wrap to secure. M.Monica.[place] MINISTER 05/20/2025 - No sharp Debridement today in clinic. We are assisting Dr. Ortiz with the patients wound care. Wound cleansed with NS and gauze, applied Collagen with silver, gauze, abd pad, Kerlix, and an joan wrap to secure. M.A.Judi MINISTER 05/27/2025 - No sharp Debridement today in clinic. We are assisting Dr. Ortiz with the patients wound care. Wound cleansed with NS and gauze, applied silver Alginate, gauze, abd pad, Kerlix, and an joan wrap to secure. M.Monica.Judi MINISTER 06/04/2025 - No sharp Debridement today in clinic. We are assisting Dr. Ortiz with the patients wound care. Wound cleansed with NS and gauze, applied silver Alginate, gauze, abd pad, Kerlix, and an joan wrap to secure. M.Monica.Judi MINISTER Not available 06/04/2025 14:25:02 Reason for Referral None Reported. Problems Name Problem SNOMED Code Status Onset Date Resolution Date Notes Provider Name and Address Organization Details Recorded Time Upper respiratory infection 89817725 Active 2024 COLEMAN MARTELL NP null, [place] - [facility] 12:18:40 Episodic migraine 0341951375551 Active 2024 COLEMAN MARTELL NP null[place] [facility] 12:34:01 Type 2 diabetes mellitus 38775613 Active 2024 COLEMAN MARTELL NP null, [place] - [facility] 15:27:12 Refractory migraine with aura 980093039 Active 2024 ABDOULAYE HAQ [place] - [facility] 10:56:52 Problem Notes None recorded. Procedures Surgical History Date Name Laterality Status Provider Name and Address Organization Details Recorded Time 07/06/20 [facility] Therapy Treatment Form completed Carolyn roland [place] - [facility] 07/06/2025 13:06:29 07/03/20 25 [facility] Therapy Treatment Form completed Paula BERNAL - [facility] 07/03/2025 12:47:29 07/02/20 25 [facility] Therapy Treatment Form completed Paula Licea [place] - [facility] 07/02/2025 13:06:39 07/01/20 [facility] Therapy Treatment Form completed Paula BERNAL - [facility] 07/01/2025 13:05:37 06/30/20 25 [facility] Therapy Treatment Form completed COLEMAN MARTELL NP [place] - [facility] 06/30/2025 13:46:12 06/29/20 25 [facility] Therapy Treatment Form completed Carolyn BERNAL - [facility] 06/29/2025 13:24:58 06/26/20 25 [facility] Therapy Treatment Form completed Manfred Shelton MD [place] - [facility] 06/26/2025 16:57:55 06/25/20 [facility] Therapy Treatment Form completed Carolyn luan [place] - [facility] 06/25/2025 12:47:07 06/24/20 25 [facility] Therapy Treatment Form completed [facility] - [facility] 06/24/2025 12:40:20 06/23/20 25 [facility] Therapy Treatment Form completed [facility] [place] - [facility] 06/23/2025 12:39:50 06/22/20 25 [facility] Therapy Treatment Form completed Carolyn luan [place] - [facility] 06/22/2025 12:49:55 06/19/20 25 [facility] Therapy Treatment Form completed Manfred Shelotn MD [place] - [facility] 06/19/2025 14:13:24 06/18/20 25 [facility] Therapy Treatment Form completed ABDOULAYE HAQ - [facility] 06/18/2025 13:17:34 06/17/20 25 [facility] Therapy Treatment Form completed Carolyn BERNAL - [facility] 06/17/2025 12:29:15 06/16/20 25 [facility] Therapy Treatment Form completed [facility] - [facility] 06/16/2025 12:45:53 06/15/20 25 [facility] Therapy Treatment Form completed [facility] - [facility] 06/15/2025 12:47:07 06/12/20 25 [facility] Therapy Treatment Form completed Manfred Shelton MD [place] - [facility] 06/12/2025 14:54:52 06/11/20 25 [facility] Therapy Treatment Form completed [facility] - [facility] 06/11/2025 13:02:39 06/10/20 25 [facility] Therapy Treatment Form completed [facility] - [facility] 06/10/2025 12:50:18 06/08/20 25 [facility] Therapy Treatment Form completed [facility] - [facility] 06/08/2025 [...] Care Therapy Treatment Form completed [facility] - [facility] 06/02/2025 13:09:37 05/29/20 25 [facility] Therapy Treatment Form completed [facility] - [facility] 05/29/2025 12:25:31 05/28/20 25 [facility] Therapy Treatment Form completed [facility] - [facility] 05/28/2025 13:02:44 05/27/20 25 Wound completed COLEMAN MARTELL NP [place] - [facility] 05/27/2025 13:18:22 05/27/20 25 [facility] Therapy Treatment Form completed [facility] - [facility] 05/27/2025 [...] Breaks Therapy Treatment Form completed Mary Riveroer [place] - [facility] 05/15/2025 14:17:22 05/14/20 [...] [facility] Therapy Treatment Form completed Mray BERNAL - [facility] 05/01/2025 12:20:36 [...] Not available Not available Not available 04/23/2025 49753 3 RxNorm Luciana servin, [place] - [facility] 14:25:27 1104 Avelox medicatio n Not available Not available Not available 04/23/2025 46246 6 RxNorm Luciana servin, [place] - [facility] 14:25:52 1105 metformin medicatio n other Not available low 04/23/20252023 6809 RxNorm GI issue s Luciana Noriega null, [place] - [facility] 14:26:11 1253 Product containin g angiotens in-conver ting enzyme inhibitor (product) medicatio n cough moderate Not available 06/26/2025 71817 009 SNOMED Not Available [employer] - External Data Service - prod 5 10:54:20 1254 metformin hydrochlo ride medicatio n Not available Not available Not available 06/26/2025 45401 3 RxNorm Not Available [employer] Data [employer] - prod 5 10:54:20 Medications [...] 97 % 97 % 125/68 mm[Hg] COLEMAN MARTELL NP [place] - [facility] 5 14:23:22 Date Recorded Heart rate Respiratory rate Body temperature Oxygen saturation Oxygen saturation in Arterial blood by Pulse oximetry Heart rate Respiratory rate Body temperature Oxygen saturation Oxygen saturation in Arterial blood by Pulse oximetry Systolic And Diastolic Systolic And Diastolic Provider Name and Address Organization Details Last Updated DateTime 81 /min 16 /min 98.6 [degF] 96 % 96 % 71 /min 16 /min 98.1 [degF] 94 % 94 % 150/63 mm[Hg] 125/68 mm[Hg] Carolyn luan [place] - [facility] 12:59:11 Social History None recorded. Functional Status [...] 4729 Manfred Shelton MD Main Office [address] [place] [address] 05/04/2025 10:46:48 05/04/2025 14:18:05 4767 Manfred Shelton MD Main Office [address] [place] [address] 05/06/2025 10:55:59 05/06/2025 11:32:38 [id number] Manfred Shelton MD Main Office [address] [place] [address] 05/06/2025 13:04:28 05/07/2025 08:30:09 4788 Manfred Shelton MD Main Office [address] [address] 05/07/2025 10:45:55 05/08/2025 10:40:32 4802 Manfred Shelton MD Main Office [address] [place] , [place] [address] 05/08/2025 10:55:11 05/08/2025 14:31:10 [id number] Manfred Shelton MD Main Office [address] [place] , [place] [address] 05/08/2025 13:08:42 05/08/2025 14:13:22 4821 Manfred Shelton MD Main Office [address] [place] , [place] [address] 05/11/2025 10:59:55 05/11/2025 14:43:45 Type 2 diabetes mellitus 99117067 E11.69 [id number] 4851 Manfred Shelton MD Main Office [address] [place] [address] 05/12/2025 10:58:25 05/12/2025 16:06:58 4891 Manfred Shelton MD Main Office [address] [place] , [place] [address] 05/13/2025 10:26:11 05/13/2025 14:22:52 Type 2 diabetes mellitus 49620966 E11.69 [id number] 4894 Manfred Shelton MD Main Office [address] [place] , [place] [address] 05/13/2025 13:16:44 05/13/2025 14:39:17 4914 Manfred Shelton MD Main Office [address] [place] , [place] [address] 05/14/2025 10:20:17 05/14/2025 16:02:14 4939 Manfred Shelton MD Main Office [address] [place] , [place] [address] 05/15/2025 10:48:13 05/18/2025 08:48:44 4959 Manfred Shelton MD Main Office [address] [place] , [place] [address] 05/18/2025 10:59:56 05/18/2025 15:48:37 Type 2 diabetes mellitus 01238191 E11.69 0720160165 4981 Manfred Shelton MD Main Office [address] [place] [address] 05/19/2025 11:07:27 05/19/2025 14:52:31 5002 Manrfed Shelton MD Main Office [address] [place] [address] 05/20/2025 11:36:16 05/20/2025 13:20:26 5003 Manfred Shelton MD Main Office [address] [place] [address] 05/20/2025 12:28:38 05/20/2025 13:24:07 5019 Manfred Shelton MD Main Office [address] [place] [address] 05/21/2025 10:14:02 05/22/2025 08:40:53 5034 Manfred Shelton MD Main Office [address] [place] [address] 05/22/2025 10:05:00 05/22/2025 14:31:52 5054 COLEMAN JUDI, CARRY ALL DRIVER Main Office [address] [place] [address] 05/25/2025 10:54:17 05/25/2025 14:23:41 5071 COLEMAN JUDI, CARRY ALL DRIVER Main Office [address] [place] [address] 05/26/2025 10:04:52 05/26/2025 13:22:24 5083 COLEMAN JUDI, CARRY ALL DRIVER Main Office [address] [place] [address] 05/26/2025 16:38:48 05/26/2025 16:40:45 5087 COLEMAN JUDI, CARRY ALL DRIVER Main Office [address] [place] [address] 05/27/2025 10:11:43 05/27/2025 13:22:20 5093 COLEMAN JUDI, CARRY ALL DRIVER Main Office [address] [place] [address] 05/27/2025 13:11:38 05/27/2025 13:19:10 5104 Manfred Shelton MD Main Office [address] [place] [address] 05/28/2025 10:14:13 05/29/2025 08:47:13 5117 Manfred Shelton MD Main Office [address] [place] [address] 05/29/2025 10:04:58 05/29/2025 17:43:48 5132 Manfred Shelton MD Main Office [address] [place] [address] 06/02/2025 10:25:50 06/02/2025 14:14:27 5149 Manfred Shelton MD Main Office [address] [place] [address] 06/03/2025 10:16:52 06/03/2025 14:45:20 5163 Manfred Shelton MD Main Office [address] [place] [address] 06/04/2025 10:31:23 06/04/2025 13:58:07 5173 Manfred Shelton MD Main Office [address] [place] [address] 06/04/2025 14:13:52 06/04/2025 14:25:08 Health Concerns Section Related Observation LastModified by Organization Detai ls LastModified Time None Recorded Concern Status LastModified by Organization Details LastModified Time None Recorded Payers Encounter Date Sequence Insurance Name Policy Number Policy Gonzales Covered Member ID Gonzales Member ID Guarantor Name 06/04/2025 2 [facility] Seema Delacruz [id number] Seema Osullivantis 06/04/2025 1 [employer] Seema Jayme [id number] Seema Jayme Notes Date Note Type Note Provider Name [...]
--- OUTSIDE RECORDS SUMMARY | 2025-07-06 16:09 | XMS_ITS | Clinical Summary ---
Author Organization [facility] Address [address] [place] [address] Phone Care Team Providers Care Street Car Inspector Name Role Phone Sanaz RN, Linn Unavailable [...] lower limb Acute respiratory failure with hypercapnia 70934024 (SNOMED CT) Active Freda Medina Acute respiratory failure Leukemoid reaction 76222547 (SNOMED CT) Active Freda Medina Leukemoid reaction shelter (current) use of systemic steroids Z79.52 (ICD-10-CM ) Active Freda Medina shelter (current) use of systemic steroids Benign Essential Hypertension 49273310 (SNOMED CT) Active Freda Medina Benign hypertension [...]
--- OUTSIDE RECORDS SUMMARY | 2025-07-06 16:09 | XMS_ITS | Continuity of Care Document ---
Author Organization [place] [facility], Main Office Address [address] [place] [address] Care Team Providers Care Run Lead Name Role Phone STEPHY YUSUF Primary Care Provider [phone] Assessment No assessment recorded. Plan of Treatment [...] Modified By Organization Details Last Modified Time 06/30/2025 6503 BACKGROUND: Seema Delacruz is a 55 y.o. [...] E11.621 ___ ___ Session Notes: Today's Date [id number] HBOT session 41 of 60 Next HBOT [id number] 30Jul - Patient cleared for 1st HBOT [...] full session with no problem. Antoinette Lau COMPLAINT ANALYST 04Aug - Patient deemed safe for HBOT [...] antibiotics for an upper respiratory infection. Nicolasa COMPLAINT ANALYST 07Aug- Patient cleared for HBOT today. VS stable. PAtient had little trouble reaching pressure today, but had to come out of chamber early due to needing to use restroom. She managed to do 4 segs-118 minutes. [place].Tanner COMPLAINT ANALYST 08Aug - Patient cleared for HBOT today. VS stable. Patient completed full session with no problem. Antoinette Lau COMPLAINT ANALYST 11Aug - Patient cleared for HBOT today. [...] full session with no problem. Antoinette Lau COMPLAINT ANALYST 13Aug - Patient cleared for HBOT today. VS stable. Patient completed full session with no problem. Wound care to follow treatment today. Antoinette Lau APRN 14Aug - Patient cleared for HBOT today. VS stable. Patient completed full session with no problem. Antoinette Lau COMPLAINT ANALYST 15Aug - Patient cleared for HBOT today. [...] attempt to try again on Sunday. Nicolasa COMPLAINT ANALYST 18Aug - Patient cleared for HBOT today. VS stable. Patient completed full session with no problem. Antoinette Lau COMPLAINT ANALYST 19Aug - Patient deemed safe for HBOT [...] full session with no problem. M.A. Judi COMPLAINT ANALYST 25Sep - Patient cleared for HBOT today. VS stable. Patient completed full session with no problem. Antoinette Sotowood COMPLAINT ANALYST 26Sep - Deemed safe for HBOT on this date and completed the full session uneventfully. [facility] [place] Patient cleared for HBOT today. VS stable. Patient completed 3 Seg session with no problem. Antoinette Sotowood COMPLAINT ANALYST 30Sep - Patient cleared for HBOT today. VS stable. Patient completed full session with no problem. Antoinette Sotowood COMPLAINT ANALYST Not available 06/30/2025 13:46:32 Reason for Referral None Reported. Problems Name Problem SNOMED Code Status Onset Date Resolution Date Notes Provider Name and Address Organization Details Recorded Time Upper respiratory infection [id number] Active 2024 COLEMAN LAU NP null, [place] - [facility] 12:18:40 Episodic migraine 4782650801933 06 Active 2024 COLEMAN LAU NP null, [place] [facility] 12:34:01 Type 2 diabetes mellitus 32629278 Active 2024 COLEMAN LAU NP null, [place] - [facility] 15:27:12 Refractory migraine with aura 393768806 Active 2024 COLEMAN LAU NP null, [place] [...] [facility] - [facility] 06/29/2025 13:24:58 06/26/20 25 [facility] Therapy Treatment Form completed Manfred Shelton MD [place] - [facility] 06/26/2025 16:57:55 06/25/20 [...] Therapy Treatment Form completed Manfred Shelton MD [place] - [facility] 06/19/2025 14:13:24 06/18/20 [...] Therapy Treatment Form completed Manfred Shelton [place] [facility] 06/12/2025 14:54:52 06/11/20 [...] Care Therapy Treatment Form completed Evelia Winters [place] - [facility] 06/05/2025 14:28:16 06/04/20 [...] Carolyn luan [place] - [facility] 05/29/2025 12:25:31 [...] - [facility] 04/30/2025 14:18:39 04/29/20 [facility] Therapy Treatment Form completed Mary Miranda [place] - [facility] 04/29/2025 13:00:12 Knee [...] Not available Not available Not available 04/23/2025 23307 3 RxNorm Luciana servin, [place] - [facility] 14:25:27 1104 Avelox medicatio n Not available Not available Not available 04/23/2025 51099 6 RxNorm Luciana servin, [place] - [facility] 14:25:52 1105 metformin medicatio n other Not available low 04/23/20252023 6809 RxNorm GI issue s Luciana servin, [place] - [facility] 14:26:11 1253 Product containin g angiotens in-conver ting enzyme inhibitor (product) medicatio n cough moderate Not available 06/26/2025 59255 009 SNOMED Not Available taisha - External Data [employer] - prod 5 10:54:20 1254 metformin hydrochlo ride medicatio n Not available Not available Not available 06/26/2025 41741 3 RxNorm Not Available pageton - External Data Service - prod 10:54:20 [...] Address Organization Details Last Updated DateTime 5 72 /min 16 /min 97.9 [degF] 90 % 90 % 121/64 mm[Hg] Mary Miranda [place] - [facility] 5 12:57:01 Date Recorded Heart rate Respiratory rate Body temperature Oxygen saturation Oxygen saturation in Arterial blood by Pulse oximetry Systolic And Diastolic Provider Name and Address Organization Details Last Updated DateTime 5 78 /min 16 /min 98.1 [degF] 90 % 90 % 159/75 mm[Hg] Paula Licea [place] - [facility] 5 11:01:34 Social History None recorded. Functional Status None [...] Office [address] [place] [address] 06/02/2025 10:25:50 06/02/2025 14:14:27 [id number] Manfred Shelton MD Main Office [address] [place] [address] 06/03/2025 10:16:52 06/03/2025 14:45:20 [id number] Manfred Shelton MD Main Office [address] [place] [address] 06/04/2025 10:31:23 06/04/2025 13:58:07 [id number] Manfred Shelton MD Main Office [address] [place] [address] 06/04/2025 14:13:52 06/04/2025 14:25:08 [id number] Manfred Shelton MD Main Office [address] [place] [address] 06/05/2025 10:55:07 06/05/2025 16:50:44 [id number] Manfred Shelton MD Main Office [address] [place] [address] 06/08/2025 10:25:37 06/08/2025 14:39:12 [id number] Manfred Shelton MD Main Office [address] [place] [address] 06/10/2025 10:19:13 06/10/2025 13:21:20 [id number] Manfred Shelton MD Main Office [address] [place] [address] 06/11/2025 10:35:04 06/11/2025 14:11:07 [id number] Manfred Shelton MD Main Office [address] [place] [address] 06/12/2025 10:59:45 06/12/2025 14:56:49 [id number] Manfred Shelton MD Main Office [address] [place] [address] 06/15/2025 10:50:33 06/15/2025 13:14:21 [id number] Manfred Shelton MD Main Office [address] [place] [address] 06/16/2025 10:14:56 06/16/2025 13:52:36 [id number] Manfred Shelton MD Main Office [address] [place] [address] 06/17/2025 10:28:52 06/17/2025 13:18:56 [id number] Manfred Shelton MD Main Office [address] [place] [address] 06/18/2025 10:16:09 06/18/2025 13:16:04 [id number] Manfred Shelton MD Main Office [address] [place] [address] 06/19/2025 10:44:19 06/19/2025 14:15:39 [id number] COLEMAN LAU NP Main Office [address] [place] [address] 06/22/2025 10:36:06 06/22/2025 14:32:28 [id number] Manfred Shelton MD Main Office [address] [place] [address] 06/23/2025 10:18:15 06/23/2025 14:03:00 [id number] Manfred Shelton MD Main Office [address] [place] [address] 06/24/2025 10:23:16 06/24/2025 13:37:08 [id number] Manfred Shelton MD Main Office [address] [place] [address] 06/25/2025 10:19:36 06/25/2025 14:27:35 5437 Manfred Shelton MD Main Office [address] [place] [address] 06/26/2025 10:52:38 06/26/2025 16:27:47 5456 Manfred Shelton MD Main Office [address] [place] [address] 06/29/2025 10:44:14 06/29/2025 13:39:12 5477 Manfred Shelton MD Main Office [address] [place] [address] 06/30/2025 10:42:21 06/30/2025 13:46:39 Health Concerns Section Related Observation LastModified by Organization Detai ls LastModified Time None Recorded Concern Status LastModified by Organization Details LastModified Time None Recorded Payers Encounter Date Sequence Insurance Name Policy Number Policy Gonzales Covered Member ID Gonzales Member ID Guarantor Name 06/30/2025 2 [employer] Seema Delacruz [id number] Seema Delacruz 06/30/2025 1 [employer] Seema Delacruz [id number] Seema Delacruz OBGyn Episode No OBEpisode recorded.
--- OUTSIDE RECORDS SUMMARY | 2025-07-06 16:09 | XMS_ITS | Continuity of Care Document ---
Author Organization [place] [facility], Main Office Address [address] [place] [address] Care Team Providers Care Maternity Floor Supervisor Name Role Phone STEPHY YUSUF Primary [...] Modified By Organization Details Last Modified Time 06/12/2025 8695 BACKGROUND: Seema Delacruz is a 55 y.o. [...] Diagnosis: L97.512, E11.621 Session Notes: Today's Date 12Jun2025 HBOT session 29 40 Next HBOT [id number] 30Jul - Patient cleared for 1st HBOT [...] full session with no problem. [place].Jessica Lau [employer] 04Aug - Patient deemed safe for HBOT today. VS stable. Patient completed full session with no problem. Antoinette Lau [employer] 05Aug - patient out for another appt. [...] antibiotics for an upper respiratory infection. Nicolasa [employer] 07Aug- Patient cleared for HBOT today. VS stable. PAtient had little trouble reaching pressure today, but had to come out of chamber early due to needing to use restroom. She managed to do 4 segs-118 minutes. [place].Tanner [employer] 08Aug - Patient cleared for HBOT today. VS stable. Patient completed full session with no problem. Antoinette Lau [employer] 11Aug - Patient cleared for HBOT today. [...] full session with no problem. Antoinette Lau [employer] 13Aug - Patient cleared for HBOT today. VS stable. Patient completed full session with no problem. Wound care to follow treatment today. Antoinette Lau [employer] 14Aug - Patient cleared for HBOT today. VS stable. Patient completed full session with no problem. Antoinette Lau [employer] 15Aug - Patient cleared for HBOT today. [...] attempt to try again on Sunday. Nicolasa [employer] 18Aug - Patient cleared for HBOT today. VS stable. Patient completed full session with no problem. Antoinette Lau [employer] 19Aug - Patient deemed safe for HBOT today. VS stable. FSBS within range. Patient completed full session with no problem. Antoinette Lau [employer] 2015Aug - Patient cleared for HBOT today. [...] date andcompleted full session free of problem. [facility] [place] 29Aug - Cleared for HBOT his date [...] full session with no problem. Antoinette Sotowood [employer] 10Sep - Patient deemed safe for HBOT today. VS stable. Patient completed full session with no problem. Antoinette Sotowood [employer] 11Sep - Patient cleared for HBOT today. VS stable. Patient completed full session with no problem. Antoinette Sotowood [employer] 12Sep - Found safe for HBOT this date. Completed curtailed session free of problem. Session shortened to satisfy demand of ride provider. [facility] [place] [email or web address] Not available 06/12/2025 14:56:44 Reason for Referral None Reported. Problems Name Problem SNOMED Code Status Onset Date Resolution Date Notes Provider Name and Address Organization Details Recorded Time Upper respiratory infection 32928675 Active 2024 COLEMAN LAU NP null, [place] - [facility] 12:18:40 Episodic migraine 5225413731169 06 Active 2024 COLEMAN LAU NP null, [place] [facility] 12:34:01 Type 2 diabetes mellitus 42096075 Active 2024 COLEMAN LAU NP null, [place] [facility] 15:27:12 Refractory migraine with aura 958331634 Active 2024 COLEMAN LAU NP null, [place] [...] [facility]xygen Care Therapy Treatment Form completed [facility] - [facility] 06/29/2025 13:24:58 06/26/20 25 [facility] Therapy Treatment Form completed Manfred Shelton MD [place] - [facility] 06/26/2025 16:57:55 06/25/20 25 [facility] Therapy Treatment Form completed [facility] - [facility] 06/25/2025 12:47:07 06/24/20 25 [facility] Therapy Treatment Form completed [facility] - [facility] 06/24/2025 12:40:20 06/23/20 25 [facility] Therapy Treatment Form completed [facility] - [facility] 06/23/2025 12:39:50 06/22/20 25 [facility] Therapy Treatment Form completed [facility] - [facility] 06/22/2025 12:49:55 06/19/20 25 [facility] Therapy Treatment Form completed Manfred Shelton MD [place] - [facility] 06/19/2025 14:13:24 06/18/20 25 [facility] Therapy Treatment Form completed COLEMAN LAU NP [place] - [facility] 06/18/2025 13:17:34 06/17/20 25 [facility] Therapy Treatment Form completed [facility] - [facility] 06/17/2025 12:29:15 06/16/20 25 [facility] Therapy Treatment Form completed [facility] - [facility] 06/16/2025 12:45:53 06/15/20 25 [facility] Therapy Treatment Form completed [facility] - [facility] 06/15/2025 12:47:07 06/12/20 25 [facility] Therapy Treatment Form completed Manfred Shelton MD [facility] 06/12/2025 14:54:52 06/11/20 25 [facility] Therapy Treatment Form completed [facility] - [facility] 06/11/2025 13:02:39 06/10/20 25 [facility] Therapy Treatment Form completed [facility] - [facility] 06/10/2025 12:50:18 06/08/20 25 [facility] Therapy Treatment Form completed [facility] - [facility] 06/08/2025 12:56:07 [...] Evelia Singh [place] - [facility] 06/03/2025 14:11:11 [...] 05/07/2025 13:01:51 05/06/20 25 Wound completed COLEMAN LAU, CHIEF CLERK [place] - [facility] 05/07/2025 08:29:18 [...] Oxygen Care Therapy Treatment Form completed COLEMAN SOTOABDOULAYE [place] - [facility] 04/30/2025 14:18:39 04/29/20 25 [facility] Therapy Treatment Form completed Mary Miranda [place] - [facility] 04/29/2025 13:00:12 Knee [...] Not available Not available Not available 04/23/2025 69793 3 RxNorm Luciana servin, [place] - [facility] 14:25:27 1104 Avelox medicatio n Not available Not available Not available 04/23/2025 88719 6 RxNorm Luciana servin, [place] - [facility] 14:25:52 1105 metformin medicatio n other Not available low 04/23/20252023 6809 RxNorm GI issue s Luciana Noriega null, [place] - [facility] 14:26:11 1253 Product containin g angiotens in-conver ting enzyme inhibitor (product) medicatio n cough moderate Not available 06/26/2025 07123 009 SNOMED Not Available taisha - External Data Service - prod 5 10:54:20 1254 metformin hydrochlo ride medicatio n Not available Not available Not available 06/26/2025 03333 3 RxNorm Not Available taisha [employer] - prod 10:54:20 Medications Name [...] Updated DateTime 5 74 /min 16 /min 97.5 [degF] 91 % 91 % 69 /min 16 /min 97 [degF] 94 % 94 % 148/76 mm[Hg] 148/80 mm[Hg] Paula Licea [place] - [facility] 5 13:02:44 Social History None recorded. Functional Status None [...] ICD10 Code Diagnosis IMO Codes Diagnosis Note [id number] Manfred Shelton MD Main Office [address] [place] [address] 05/12/2025 10:58:25 05/12/2025 16:06:58 [id number] Manfred Shelton MD Main Office [address] [place] [address] 05/13/2025 10:26:11 05/13/2025 14:22:52 Type 2 diabetes mellitus 25201415 E11.69 [id number] Manfred Shelton MD Main Office [address] [place] [address] 05/13/2025 13:16:44 05/13/2025 14:39:17 [id number] Manfred Shelton MD Main Office [address] [place] [address] 05/14/2025 10:20:17 05/14/2025 16:02:14 [id number] Manfred Shelton MD Main Office [address] [place] [address] 05/15/2025 10:48:13 05/18/2025 08:48:44 4959 Manfred Shelton MD Main Office [address] [place] [address] 05/18/2025 10:59:56 05/18/2025 15:48:37 Type 2 diabetes mellitus 36274166 E11.69 [id number] 4981 Manfred Shelton MD Main Office [address] [place] [address] 05/19/2025 11:07:27 05/19/2025 14:52:31 5002 Manfred Shelton MD Main Office [address] [place] [address] 05/20/2025 11:36:16 05/20/2025 13:20:26 5003 Manfred Shelton MD Main Office [address] [place] [address] 05/20/2025 12:28:38 05/20/2025 13:24:07 5019 Manfred Shelton MD Main Office [address] [place] [address] 05/21/2025 10:14:02 05/22/2025 08:40:53 5034 Manfred Shelton MD Main Office [address] [place] [address] 05/22/2025 10:05:00 05/22/2025 14:31:52 5054 COLEMAN JUDI, CHIEF CLERK Main Office [address] [place] [address] 05/25/2025 10:54:17 05/25/2025 14:23:41 5071 COLEMAN JUDI, CHIEF CLERK Main Office [address] [place] [address] 05/26/2025 10:04:52 05/26/2025 13:22:24 5083 COLEMAN JUDI, CHIEF CLERK Main Office [address] [place] [address] 05/26/2025 16:38:48 05/26/2025 16:40:45 5087 COLEMAN JUDI, CHIEF CLERK Main Office [address] [place] [address] 05/27/2025 10:11:43 05/27/2025 13:22:20 5093 COLEMAN JUDI, CHIEF CLERK Main Office [address] [place] [address] 05/27/2025 13:11:38 05/27/2025 13:19:10 5104 Manfred Shelton MD Main Office [address] [place] [address] 05/28/2025 10:14:13 05/29/2025 08:47:13 5117 Manfred Shelton MD Main Office [address] [place] [address] 05/29/2025 10:04:58 05/29/2025 17:43:48 5132 Manfred Shelton MD Main Office [address] [place] [address] 06/02/2025 10:25:50 06/02/2025 14:14:27 5149 Manfred Shelton MD Main Office [address] [place] , [place] [address] 06/03/2025 10:16:52 06/03/2025 14:45:20 5163 Manfred Shelton MD Main Office [address] [place] [address] 06/04/2025 10:31:23 06/04/2025 13:58:07 5173 Manfred Shelton MD Main Office [address] [place] , [place] [address] 06/04/2025 14:13:52 06/04/2025 14:25:08 5186 Manfred Shelton MD Main Office [address] [place] [address] 06/05/2025 10:55:07 06/05/2025 16:50:44 5202 Manfred Shelton MD Main Office [address] [place] [address] 06/08/2025 10:25:37 06/08/2025 14:39:12 5237 Manfred Shelton MD Main Office [address] [place] [address] 06/10/2025 10:19:13 06/10/2025 13:21:20 5255 Manfred Shelton MD Main Office [address] [place] [address] 06/11/2025 10:35:04 06/11/2025 14:11:07 [id number] Manfred Shelton MD Main Office [address] [place] , [place] [address] 06/12/2025 10:59:45 06/12/2025 14:56:49 Health Concerns Section Related Observation LastModified by Organization Detai ls LastModified Time None Recorded Concern Status LastModified by Organization Details LastModified Time None Recorded Payers Encounter Date Sequence Insurance Name Policy Number Policy Gonzales Covered Member ID Gonzales Member ID Guarantor Name 06/12/2025 2 [employer] [facility] Seema Delacruz [id number] Seema Delacruz 06/12/2025 1 SAVANNA Delacruz [id number] Seema Delacruz OBGyn Episode No OBEpisode recorded.
--- OUTSIDE RECORDS SUMMARY | 2025-07-06 16:10 | XMS_ITS | Continuity of Care Document ---
Author Organization [place] - [facility], Main Office Address [address] [place] [address] Care Team Providers Care Cardiac Catheterization Technician Name Role Phone STEPHY YUSUF Primary Care Provider [phone] Assessment No assessment recorded. Plan of Treatment [...] Modified By Organization Details Last Modified Time 05/18/2025 9417 BACKGROUND: Seema Delacruz is a 55 y.o. [...] E11.621 ___ ___ Session Notes: Today's Date [id number] HBOT session 13 of 40 Next HBOT [id number] 30Jul - Patient cleared for 1st HBOT [...] her wear ear plugs during treatment. Nicolasa SPOOL HAULER 31July - Patient cleared for HBOT today. [...] full session with no problem. [place].Jessica Lau SPOOL HAULER 04Aug - Patient deemed safe for HBOT today. VS stable. Patient completed full session with no problem. Antoinette Lau SPOOL HAULER 05Aug - patient out for another appt. [...] antibiotics for an upper respiratory infection. Nicolasa SPOOL HAULER 07Aug- Patient cleared for HBOT today. VS stable. PAtient had little trouble reaching pressure today, but had to come out of chamber early due to needing to use restroom. She managed to do 4 segs-118 minutes. Nicolasa HUTTONN 08Aug - Patient cleared for HBOT today. VS stable. Patient completed full session with no problem. Antoinette Lau SPOOL HAULER 11Aug - Patient cleared for HBOT today. [...] full session with no problem. Antoinette Lau SPOOL HAULER 13Aug - Patient cleared for HBOT today. VS stable. Patient completed full session with no problem. Wound care to follow treatment today. Antoinette Lau APRN 14Aug - Patient cleared for HBOT today. VS stable. Patient completed full session with no problem. Antoinette Lau APRN 15Aug - Patient cleared for HBOT today. [...] attempt to try again on Sunday. Nicolasa SPOOL HAULER 18Aug - Patient cleared for HBOT today. VS stable. Patient completed full session with no problem. Antoinette Lau APRN Not available 05/18/2025 15:47:19 Reason for Referral None Reported. Problems Name Problem SNOMED Code Status Onset Date Resolution Date Notes Provider Name and Address Organization Details Recorded Time Upper respiratory infection 22652923 Active 2024 COLEMAN LAU NP null, [place] - [facility] 12:18:40 Episodic migraine 1415184194980 Active 2024 COLEMAN LAU NP null, [place] - [facility] 12:34:01 Type 2 diabetes mellitus 65178426 Active 2024 COLEMAN LAU NP null, [place] - [facility] 15:27:12 Refractory migraine with aura 888389847 Active 2024 COLEMAN LAU NP null, [place] - [facility] 10:56:52 Problem Notes None recorded. Procedures Surgical History Date Name Laterality Status Provider Name and Address Organization Details Recorded Time 07/06/20 [facility] Therapy Treatment Form completed Carloyn luan [place] - [facility] 07/06/2025 13:06:29 07/03/20 25 [facility] Therapy Treatment Form completed Paula Licea [place] - [facility] 07/03/2025 12:47:29 07/02/20 25 [facility] Therapy Treatment Form completed Paula Licea [place] - [facility] 07/02/2025 13:06:39 07/01/20 25 [facility] Therapy Treatment Form completed Paulajuancarlos Licea [place] - [facility] 07/01/2025 13:05:37 06/30/20 25 [facility] Therapy Treatment Form completed COLEMAN LAU NP [place] - [facility] 06/30/2025 13:46:12 06/29/20 25 [facility] Therapy Treatment Form completed [facility] - [facility] 06/29/2025 13:24:58 06/26/20 25 [facility] Therapy Treatment Form completed Manfred Shelton MD [place] - [facility] 06/26/2025 16:57:55 06/25/20 25 [facility] Therapy Treatment Form completed [facility] - [facility] 06/25/2025 12:47:07 06/24/20 25 [facility] Therapy Treatment Form completed [facility] - [facility] 06/24/2025 12:40:20 06/23/20 25 [facility] Therapy Treatment Form completed [facility] - [facility] 06/23/2025 12:39:50 06/22/20 25 [facility] Therapy Treatment Form completed Carolyn luan [place] - [facility] 06/22/2025 12:49:55 06/19/20 25 [facility] Therapy Treatment Form completed Manfred Shelton MD [place] - [facility] 06/19/2025 14:13:24 06/18/20 25 [facility] Therapy Treatment Form completed COLEMAN LAU NP [place] - [facility] 06/18/2025 13:17:34 06/17/20 25 [facility] Therapy Treatment Form completed [facility] - [facility] 06/17/2025 12:29:15 06/16/20 25 [facility] Therapy Treatment Form completed [facility] - [facility] 06/16/2025 12:45:53 06/15/20 25 [facility] Therapy Treatment Form completed [facility] - [facility] 06/15/2025 12:47:07 06/12/20 25 [facility] Therapy Treatment Form completed Manfred Shelton [place] - [facility] 06/12/2025 14:54:52 06/11/20 25 [facility] Therapy Treatment Form completed [facility] - [facility] 06/11/2025 13:02:39 06/10/20 25 [facility] Therapy Treatment Form completed [facility] - [facility] 06/10/2025 12:50:18 06/08/20 25 [facility] Therapy Treatment Form completed [facility] - [facility] 06/08/2025 12:56:07 06/05/20 25 [facility] Therapy Treatment Form completed Eveliapatricia Winters [place] - [facility] 06/05/2025 14:28:16 06/04/20 25 Wound completed COLEMAN LAU NP [place] - [facility] 06/04/2025 14:24:29 06/04/20 25 [facility] Therapy Treatment Form completed COLEMAN LAU NP [place] [facility] 06/04/2025 13:56:49 06/03/20 25 [facility] Therapy Treatment Form completed Evelia Winters [place] - [facility] 06/03/2025 14:11:11 06/02/20 25 [facility] Therapy Treatment Form completed [facility] - [facility] 06/02/2025 13:09:37 05/29/20 25 [facility] Therapy Treatment Form completed [facility] - [facility] 05/29/2025 12:25:31 05/28/20 25 [facility] Therapy Treatment Form completed Carolyn BERNAL - [facility] 05/28/2025 13:02:44 05/27/20 25 Wound completed COLEMAN LAU NP [place] - [facility] 05/27/2025 13:18:22 05/27/20 25 [facility] Therapy Treatment Form completed Carolyn roland [place] - [facility] 05/27/2025 12:50:01 05/26/20 25 Nurse Note completed Luciana Noriega [place] [facility] 05/26/2025 16:40:42 05/26/20 25 [facility] Therapy Treatment Form completed Carolyn roland [place] - [facility] 05/26/2025 12:27:56 05/25/20 25 [facility] Therapy Treatment Form completed Carolyn luan [place] - [facility] 05/25/2025 13:12:32 05/22/20 25 [facility] Therapy Treatment Form completed Carolyn luan [place] - [facility] 05/22/2025 12:33:28 05/21/20 25 [facility] Therapy Treatment Form completed Carolyn luan [place] - [facility] 05/21/2025 12:47:49 05/20/20 [...] Care Therapy Treatment Form completed Carolyn roland [place] - [facility] 05/18/2025 13:22:00 05/15/20 [...] Care 04/29/2025 13:00:12 Knee Replacement completed Luciana Hari [place] - [facility] 04/23/2025 14:32:38 procedure on integumentary system completed Luciana Noriega [place] - [facility] 04/23/2025 14:33:00 cataract surgery completed Luciana Noriega [place] - [facility] 04/23/2025 14:33:07 [...] Not available Not available Not available 04/23/2025 90081 3 RxNorm Luciana Noriega null, [place] - [facility] 14:25:27 1104 Avelox medicatio n Not available Not available Not available 04/23/2025 10640 6 RxNorm Luciana oNriega null, [place] - [facility] 14:25:52 1105 metformin medicatio n other Not available low 04/23/20252023 6809 RxNorm GI issue s Luciana Noriega null, [place] - [facility] 14:26:11 1253 Product containin g angiotens in-conver ting enzyme inhibitor (product) medicatio n cough moderate Not available 06/26/2025 96331 009 SNOMED Not Available [employer] - prod 10:54:20 1254 metformin hydrochlo ride medicatio n Not available Not available Not available 06/26/2025 33939 3 RxNorm Not Available [employer] - prod 5 10:54:20 Medications [...] % 95 % 152/72 mm[Hg] 150/81 mm[Hg] [facility] - [facility] 5 13:20:52 Social [...] MD Main Office [address] [place] [address] 04/23/2025 14:15:51 04/24/2025 12:51:54 [id number] Manfred Shelton MD Main Office [address] [place] [address] 04/29/2025 10:50:02 04/29/2025 15:41:17 [id number] Manfred Shelton MD Main Office [address] [address] [place] [address] 04/30/2025 11:16:06 04/30/2025 14:19:33 4714 Manfred Shelton MD Main Office [address] [place] [address] 05/01/2025 10:18:55 05/01/2025 13:10:41 [id number] Manfred Shelton MD Main Office [address] [place] [address] 05/04/2025 10:46:48 05/04/2025 14:18:05 [id number] Manfred Shelton MD Main Office [address] [place] [address] 05/06/2025 10:55:59 05/06/2025 11:32:38 [id number] Manfred Shelton MD Main Office [address] [place] , [place] [address] 05/06/2025 13:04:28 05/07/2025 08:30:09 [id number] Manfred Shelton MD Main Office [address] [place] , [place] [address] 05/07/2025 10:45:55 05/08/2025 10:40:32 [id number] Manfred Shelton MD Main Office [address] [place] [address] 05/08/2025 10:55:11 05/08/2025 14:31:10 [id number] Manfred Shelton MD Main Office [address] [place] [address] 05/08/2025 13:08:42 05/08/2025 14:13:22 [id number] Manfred Shelton MD Main Office [address] [place] [address] 05/11/2025 10:59:55 05/11/2025 14:43:45 Type 2 diabetes mellitus 63888584 E11.69 [id number] Manfred Shelton MD Main Office [address] [place] [address] 05/12/2025 10:58:25 05/12/2025 16:06:58 [id number] Manfred Shelton MD Main Office [address] [place] , [place] [address] 05/13/2025 10:26:11 05/13/2025 14:22:52 Type 2 diabetes mellitus 13420473 E11.69 [id number] Manfred Shelton MD Main Office [address] [place] [address] 05/13/2025 13:16:44 05/13/2025 14:39:17 [id number] Manfred Shelton MD Main Office [address] [place] [address] 05/14/2025 10:20:17 05/14/2025 16:02:14 [id number] Manfred Shelton MD Main Office [address] [place] [address] 05/15/2025 10:48:13 05/18/2025 08:48:44 [id number] Manfred Shelton MD Main Office [address] [place] [address] 05/18/2025 10:59:56 05/18/2025 15:48:37 Type 2 diabetes mellitus 77591232 E11.69 [id number] Health Concerns Section Related Observation LastModified by Organization Detai ls LastModified Time None Recorded Concern Status LastModified by Organization Details LastModified Time None Recorded Payers Encounter Date Sequence Insurance Name Policy Number Policy Gonzales Covered Member ID Gonzales Member ID Guarantor Name 05/18/2025 2 [employer] [facility] Seema Delacruz [id number] Seema Delacruz 05/18/2025 1 [employer] Seema Delacruz [id number] Seema Delacruz OBGyn Episode No OBEpisode recorded.
--- OUTSIDE RECORDS SUMMARY | 2025-07-06 16:10 | XMS_ITS | Continuity of Care Document ---
Author Organization [place] [facility], Main Office Address [address] [place] [address] Care Team Providers Care Director Targeted Marketing Name Role Phone YUSUF KEYES Primary Care Provider [phone] Assessment Encounter Date Assessment Date Assessment LastModified by Organization Details LastModified Time 05/20/2025 05/20/2025 Seema Delacruz is a 55 y.o. female [...] into Lymphedemia pumps for her. Not available 05/20/2025 13:21:56 Plan of Treatment Reminders Order Date Submit [...] By Organization Details Last Modified Time 05/20/2025 5003 Cleanse wound with NS and gauze. Place Collagen with silver to wound, cover with gauze, ABD pad, kerlix, and secure with joan wrap. Change 3 times weekly. Not available 05/20/2025 13:23:13 05/06/2025 - No sharp Debridement today in [...] Kerlix, and an joan wrap to secure. [place].Monica.Judi LOGGING SUPERVISOR 05/13/2025 - No sharp Debridement today in clinic. We are assisting Dr. Ortiz with the patients wound care. Wound cleansed with NS and gauze, applied silver Alginate, gauze, abd pad, Kerlix, and an joan wrap to secure. M.Monica.Judi LOGGING SUPERVISOR 05/20/2025 - No sharp Debridement today in clinic. We are assisting Dr. Ortiz with the patients wound care. Wound cleansed with NS and gauze, applied Collagen with silver, gauze, abd pad, Kerlix, and an joan wrap to secure. M.A.Judi LOGGING SUPERVISOR Not available 05/20/2025 13:24:03 Reason for Referral None Reported. Problems Name Problem SNOMED Code Status Onset Date Resolution Date Notes Provider Name and Address Organization Details Recorded Time Upper respiratory infection 29498874 Active 2024 COLEMAN MARTELL NP null, [place] - [facility] 12:18:40 Episodic migraine 5466435278176 Active 2024 COLEMAN MARTELL NP null[place] [facility] 12:34:01 Type 2 diabetes mellitus 38831738 Active 2024 COLEMAN MARTELL NP null, [place] [facility] 15:27:12 Refractory migraine with aura 379715391 Active 2024 COLEMAN MARTELL NP null, [place] [...] Therapy Treatment Form completed COLEMAN MARTELL NP [place] - [facility] 06/30/2025 13:46:12 06/29/20 25 [facility] Therapy Treatment Form completed [facility] - [facility] 06/29/2025 13:24:58 06/26/20 [...] Shelton MD [place] - [facility] 06/19/2025 14:13:24 06/18/20 25 [facility] Therapy Treatment Form completed COLEMAN MARTELL NP [place] - [facility] 06/18/2025 13:17:34 06/17/20 [...] Form completed [facility] 06/11/2025 13:02:39 06/10/20 25 [facility] Therapy Treatment Form completed Carolyn roland [place] - [facility] 06/10/2025 12:50:18 [...] Therapy Treatment Form completed [facility] [place] - [facility] 05/29/2025 12:25:31 05/28/20 25 [facility] Therapy Treatment Form completed Carolyn luan [place] - [facility] 05/28/2025 13:02:44 05/27/20 25 Wound completed COLEMAN MARTELL NP [place] - [facility] 05/27/2025 13:18:22 05/27/20 25 [facility] Therapy Treatment Form completed [facility] [place] - [facility] 05/27/2025 12:50:01 05/26/20 25 Nurse Note completed Luciana Noriega [place] [facility] 05/26/2025 16:40:42 05/26/20 25 [facility] Therapy Treatment Form completed Carolyn luan [place] - [facility] 05/26/2025 12:27:56 05/25/20 25 [facility] Therapy Treatment Form completed [facility] [place] - [facility] 05/25/2025 13:12:32 05/22/20 25 [facility] Therapy Treatment Form completed [facility] [place] - [facility] 05/22/2025 12:33:28 05/21/20 25 [facility] Therapy Treatment Form completed [facility] [place] - [facility] 05/21/2025 12:47:49 05/20/20 25 Wound completed COLEMAN MARETLL NP [place] - [facility] 05/20/2025 [...] Mary Riveroer [place] - [facility] 05/06/2025 12:30:26 05/04/20 25 [facility] Therapy Treatment Form completed Carolyn roland [place] - [facility] 05/04/2025 12:48:46 05/01/20 25 [facility] Therapy Treatment Form completed Mary Miranda [place] - [facility] 05/01/2025 12:20:36 04/30/20 25 [facility] Therapy Treatment Form completed COLEMANPATRICE MARTELL NP [place] - [facility] [...] Not available Not available Not available 04/23/2025 59309 3 RxNorm [place] - [facility] 14:25:27 1104 Avelox medicatio n Not available Not available Not available 04/23/2025 27126 6 RxNorm Luciana servin, [place] - [facility] 14:25:52 1105 metformin medicatio n other Not available [facility] 04/23/20252023 6809 RxNorm GI issue s Luciana Noriega null, [place] - [facility] 14:26:11 1253 Product containin g angiotens in-conver ting enzyme inhibitor (product) medicatio n cough moderate Not available 06/26/2025 42885 009 SNOMED Not Available [employer] [employer] - prod 10:54:20 1254 metformin hydrochlo ride medicatio n Not available Not available Not available 06/26/2025 23573 3 RxNorm Not Available [facility]isha - External [...] 90 % 90 % 160/91 mm[Hg] COLEMAN MARTELL NP [place] [facility] [...] N Breast Cancer N Thyroid Problems N GI Problems N Lung Disease N Depression Y COPD Y Hypothyroidism Y Developmental or Behavioral Disorders N Skin [...] MD Main Office [address] [place] [address] 04/23/2025 14:15:51 04/24/2025 12:51:54 [id number] Manfred Shelton MD Main Office [address] [place] [address] 04/29/2025 10:50:02 04/29/2025 15:41:17 4702 Manfred Shelton MD Main Office [address] [place] [address] 04/30/2025 11:16:06 04/30/2025 14:19:33 4714 Manfred Shelton MD Main Office [address] [place] [address] 05/01/2025 10:18:55 05/01/2025 13:10:41 4729 Manfred Shelton MD Main Office [address] [place] [address] 05/04/2025 10:46:48 05/04/2025 14:18:05 4767 Manfred Sheltno MD Main Office [address] [place] [address] 05/06/2025 10:55:59 05/06/2025 11:32:38 [id number] Manfred Shelton MD Main Office [address] [place] [address] 05/06/2025 13:04:28 05/07/2025 08:30:09 4788 Manfred Shelton MD Main Office [address] [place] , [place] [address] 05/07/2025 10:45:55 05/08/2025 10:40:32 4802 Manfred Shelton MD Main Office [address] [place] [address] 05/08/2025 10:55:11 05/08/2025 14:31:10 4806 Manfred Shelton MD Main Office [address] [place] [address] 05/08/2025 13:08:42 05/08/2025 14:13:22 4821 Manfred Shelton MD Main Office [address] [place] , [place] [address] 05/11/2025 10:59:55 05/11/2025 14:43:45 Type 2 diabetes mellitus 54907494 E11.69 [id number] [id number] Manfred Shelton MD Main Office [address] [place] , [place] [address] 05/12/2025 10:58:25 05/12/2025 16:06:58 4891 Manfred Shelton MD Main Office [address] [place] , [place] [address] 05/13/2025 10:26:11 05/13/2025 14:22:52 Type 2 diabetes mellitus 72792892 E11.69 [id number] 4894 Manfred Shelton MD Main Office [address] [place] , [place] [address] 05/13/2025 13:16:44 05/13/2025 14:39:17 4914 Manfred Shelton MD Main Office [address] [place] [address] 05/14/2025 10:20:17 05/14/2025 16:02:14 4939 Manfred Shelton MD Main Office [address] [place] , [place] [address] 05/15/2025 10:48:13 05/18/2025 08:48:44 4959 Manfred Shelton MD Main Office [address] [place] [address] 05/18/2025 10:59:56 05/18/2025 15:48:37 Type 2 diabetes mellitus 09005428 E11.69 [id number] 4981 Manfred Shelton MD Main Office [address] [place] [address] 05/19/2025 11:07:27 05/19/2025 14:52:31 5002 Manfred Shelton MD Main Office [address] [place] [address] 05/20/2025 11:36:16 05/20/2025 13:20:26 5003 Manfred Shelton MD Main Office [address] [place] [address] 05/20/2025 12:28:38 05/20/2025 13:24:07 Health Concerns Section Related Observation LastModified by Organization Detai ls LastModified Time None Recorded Concern Status LastModified by Organization Details LastModified Time None Recorded Payers Encounter Date Sequence Insurance Name Policy Number Policy Gonzales Covered Member ID Gonzales Member ID Guarantor Name 05/20/2025 2 [facility] Seema Delacruz [id number] Seema Osullivantis 05/20/2025 1 [employer] Seema Delacruz [id number] Seema Delacruz Notes Date Note Type Note [...]
--- OUTSIDE RECORDS SUMMARY | 2025-07-06 16:10 | XMS_ITS | Continuity of Care Document ---
Author Organization [place] - [facility], Main Office Address [address] [place] [address] Care Team Providers Care Bench Lay Out Technician Name Role Phone STEPHY YUSUF Primary [...] Modified By Organization Details Last Modified Time 06/05/2025 1182 BACKGROUND: Seema Delacruz is a 55 y.o. [...] Diagnosis: L97.512, E11.621 Session Notes: Today's Date 05Jun2025 HBOT session 25 of 40 Next HBOT [id number] 30Jul - Patient cleared for 1st HBOT [...] full session with no problem. [place].Jessica Lau IRON MOLDER HELPER 04Aug - Patient deemed safe for HBOT [...] antibiotics for an upper respiratory infection. Nicolasa IRON MOLDER HELPER 07Aug- Patient cleared for HBOT today. VS stable. PAtient had little trouble reaching pressure today, but had to come out of chamber early due to needing to use restroom. She managed to do 4 segs-118 minutes. [place].Tanner IRON MOLDER HELPER 08Aug - Patient cleared for HBOT today. VS stable. Patient completed full session with no problem. Antoinette Lau IRON MOLDER HELPER 11Aug - Patient cleared for HBOT today. [...] full session with no problem. Antoinette Lau IRON MOLDER HELPER 13Aug - Patient cleared for HBOT today. VS stable. Patient completed full session with no problem. Wound care to follow treatment today. Antoinette Lau IRON MOLDER HELPER 14Aug - Patient cleared for HBOT today. VS stable. Patient completed full session with no problem. Antoinette Lau IRON MOLDER HELPER 15Aug - Patient cleared for HBOT today. [...] attempt to try again on Sunday. Nicolasa IRON MOLDER HELPER 18Aug - Patient cleared for HBOT today. VS stable. Patient completed full session with no problem. Antoinette Lau IRON MOLDER HELPER 19Aug - Patient deemed safe for HBOT today. VS stable. FSBS within range. Patient completed full session with no problem. Antoinette Lau IRON MOLDER HELPER 2015Aug - Patient cleared for HBOT today. VS stable. Soon after reaching pressure, patient states that she is having anxiety, and wants to come out of chamber. We tried turning down pressure, and giving an air break, but she still insist on coming out. We brought her out, VS stable, wound care done. IsraelCarlo HUTTONN 21Aug - Patient deemed safe for HBOT today. VS stable. FSBS within range. Patient completed full session with no problem. Patient better tolerated treatment today in larger chamber with no reports of anxiety during treatment. Antoinette Lau APRN 22Aug - Cleared for HBOT this date and did complete full session with no problem including no significant anxiety. Dressing change today per nursing. [facility] 25Aug - Patient deemed safe for HBOT [...] date andcompleted full session free of problem. [facility] 29Aug - Cleared for HBOT his date and completed full session free of problem. Of note, this patient continues to smoke tobacco cigarettes. [facility] 02Sep - Patient deemed safe for HBOT [...] above 80 and was discharged with 92. [facility] MD [email or web address] Not available 06/05/2025 16:50:39 Reason for Referral None Reported. Problems Name Problem SNOMED Code Status Onset Date Resolution Date Notes Provider Name and Address Organization Details Recorded Time Upper respiratory infection 22936321 Active 2024 COLEMAN LAU NP null, [place] - [facility] 12:18:40 Episodic migraine [id number] 06 Active 2024 COLEMAN LAU NP null, [place] - [facility] 12:34:01 Type 2 diabetes mellitus 42353483 Active 2024 COLEMAN LAU NP null, [place] - [facility] 15:27:12 Refractory migraine with aura 352337261 Active 2024 COLEMAN LAU NP null, [place] - [facility] 10:56:52 Problem Notes None recorded. Procedures Surgical History Date Name Laterality Status Provider Name and Address Organization Details Recorded Time 07/06/20 [facility] Therapy Treatment Form completed Carolyn roland [place] - [facility] 07/06/2025 13:06:29 07/03/20 25 [facility] Therapy Treatment Form completed Paulajuancarlos Licea [place] - [facility] 07/03/2025 12:47:29 07/02/20 25 [facility] Therapy Treatment Form completed Paula Licea [place] - [facility] 07/02/2025 13:06:39 07/01/20 25 [facility] Therapy Treatment Form completed Paula Licea [place] - [facility] 07/01/2025 13:05:37 06/30/20 25 [facility] Therapy Treatment Form completed COLEMAN LAU NP [place] - [facility] 06/30/2025 13:46:12 06/29/20 25 [facility] Therapy Treatment Form completed Carolyn roland [place] - [facility] 06/29/2025 13:24:58 06/26/20 25 [facility] Therapy Treatment Form completed Manfred Shelton MD [place] - [facility] 06/26/2025 16:57:55 06/25/20 25 [facility] Therapy Treatment Form completed Carolyn luan [place] - [facility] 06/25/2025 12:47:07 06/24/20 25 [facility] Therapy Treatment Form completed Carolyn roland [place] - [facility] 06/24/2025 12:40:20 06/23/20 25 [facility] Therapy Treatment Form completed [facility] - [facility] 06/23/2025 12:39:50 06/22/20 25 [facility] Therapy Treatment Form completed [facility] - [facility] 06/22/2025 12:49:55 06/19/20 25 [facility] Therapy Treatment Form completed Manfred Shelton MD [place] - [facility] 06/19/2025 14:13:24 06/18/20 25 [facility] Therapy Treatment Form completed COLEMAN LAU NP [place] - [facility] 06/18/2025 13:17:34 06/17/20 25 [facility] Therapy Treatment Form completed [facility] - [facility] 06/17/2025 12:29:15 06/16/20 25 [facility] Therapy Treatment Form completed [facility] - [facility] 06/16/2025 12:45:53 06/15/20 25 [facility] Therapy Treatment Form completed [facility] - [facility] 06/15/2025 12:47:07 06/12/20 25 [facility] Therapy Treatment Form completed Manfred Shelton MD [place] - [facility] 06/12/2025 14:54:52 06/11/20 25 [facility] Therapy Treatment Form completed [facility] - [facility] 06/11/2025 13:02:39 06/10/20 25 [facility] Therapy Treatment Form completed [facility] - [facility] 06/10/2025 12:50:18 06/08/20 25 [facility] Therapy Treatment Form completed [facility] - [facility] 06/08/2025 12:56:07 [...] [facility] Therapy Treatment Form completed [facility] [place] - [facility] 05/29/2025 [...] [facility] Therapy Treatment Form completed [facility] [place] - [facility] 05/22/2025 12:33:28 05/21/20 25 [facility] Therapy Treatment Form completed [facility] [place] [facility] 05/21/2025 [...] Not available Not available Not available 04/23/2025 11422 3 RxNorm Luciana servin, [place] - [facility] 14:25:27 1104 Avelox medicatio n Not available Not available Not available 04/23/2025 75716 6 RxNorm Luciana servin, [place] - [facility] 14:25:52 1105 metformin medicatio n other Not available [facility] 04/23/20252023 6809 RxNorm GI issue s Luciana Noriega null, [place] - [facility] 14:26:11 1253 Product containin g angiotens in-conver ting enzyme inhibitor (product) medicatio n cough moderate Not available 06/26/2025 17887 009 SNOMED Not Available [facility] - [employer] - prod 5 10:54:20 1254 metformin hydrochlo ride medicatio n Not available Not available Not available 06/26/2025 67030 3 RxNorm Not Available [employer] [employer] - prod 10:54:20 Medications [...] Updated DateTime 5 80 /min 16 /min 99 [degF] 92 % 92 % 71 /min 16 /min 97.9 [degF] 93 % 93 % 153/75 mm[Hg] 129/83 mm[Hg] Evelia Winters [place] - [facility] 5 13:12:38 Social History None recorded. Functional Status None [...] ICD10 Code Diagnosis IMO Codes Diagnosis Note [id number] Manfred Shelton MD Main Office [address] [place] [address] 05/06/2025 10:55:59 05/06/2025 11:32:38 [id number] Manfred Shelton MD Main Office [address] [place] [address] 05/06/2025 13:04:28 05/07/2025 08:30:09 [id number] Manfred Shelton MD Main Office [address] [place] [address] 05/07/2025 10:45:55 05/08/2025 10:40:32 [id number] Manfred Shelton MD Main Office [address] [place] [address] 05/08/2025 10:55:11 05/08/2025 14:31:10 [id number] Manfred Shelton MD Main Office [address] [place] [address] 05/08/2025 13:08:42 05/08/2025 14:13:22 [id number] Manfred Shelton MD Main Office [address] [place] , [place] [address] 05/11/2025 10:59:55 05/11/2025 14:43:45 Type 2 diabetes mellitus 02847638 E11.69 [id number] Manfred Shelton MD Main Office [address] [place] , [place] [address] 05/12/2025 10:58:25 05/12/2025 16:06:58 [id number] Manfred Shelton MD Main Office [address] [place] , [place] [address] 05/13/2025 10:26:11 05/13/2025 14:22:52 Type 2 diabetes mellitus 76286214 E11.69 [id number] Manfred Shelton MD Main Office [address] [place] [address] 05/13/2025 13:16:44 05/13/2025 14:39:17 [id number] Manfred Shelton MD Main Office [address] [place] [address] 05/14/2025 10:20:17 05/14/2025 16:02:14 [id number] Manfred Shelton MD Main Office [address] [place] [address] 05/15/2025 10:48:13 05/18/2025 08:48:44 [id number] Manfred Shelton MD Main Office [address] [place] , [place] [address] 05/18/2025 10:59:56 05/18/2025 15:48:37 Type 2 diabetes mellitus 18500188 E11.69 [id number] Manfred Shelton MD Main Office [address] [place] , [place] [address] 05/19/2025 11:07:27 05/19/2025 14:52:31 [id number] Manfred Shelton MD Main Office [address] [place] , [place] [address] 05/20/2025 11:36:16 05/20/2025 13:20:26 [id number] Manfred Shelton MD Main Office [address] [place] , [place] [address] 05/20/2025 12:28:38 05/20/2025 13:24:07 [id number] Manfred Shelton MD Main Office [address] [place] , [place] [address] 05/21/2025 10:14:02 05/22/2025 08:40:53 [id number] Manfred Shelton MD Main Office [address] [place] , [place] [address] 05/22/2025 10:05:00 05/22/2025 14:31:52 [id number] COLEMAN LAU, CONTRACT ASSISTANT Main Office [address] [place] , [place] [address] 05/25/2025 10:54:17 05/25/2025 14:23:41 [id number] COLEMAN LAU, CONTRACT ASSISTANT Main Office [address] [place] , [place] [address] 05/26/2025 10:04:52 05/26/2025 13:22:24 5083 COLEMAN LAU, CONTRACT ASSISTANT Main Office [address] [place] , [place] [address] 05/26/2025 16:38:48 05/26/2025 16:40:45 5087 COLEMAN LAU, CONTRACT ASSISTANT Main Office [address] [place] , [place] [address] 05/27/2025 10:11:43 05/27/2025 13:22:20 5093 COLEMAN LAU, CONTRACT ASSISTANT Main Office [address] [place] [address] 05/27/2025 13:11:38 05/27/2025 13:19:10 [id number] Manfred Shelton MD Main Office [address] [place] [address] 05/28/2025 10:14:13 05/29/2025 08:47:13 [id number] Manfred Shelton MD Main Office [address] [place] [address] 05/29/2025 10:04:58 05/29/2025 17:43:48 [id number] Manfred Shelton MD Main Office [address] [place] [address] 06/02/2025 10:25:50 06/02/2025 14:14:27 [id number] Manfrde Sehlton MD Main Office [address] [place] [address] 06/03/2025 10:16:52 06/03/2025 14:45:20 [id number] Manfred Shelton MD Main Office [address] [place] [address] 06/04/2025 10:31:23 06/04/2025 13:58:07 [id number] Manfred Shelton MD Main Office [address] [place] [address] 06/04/2025 14:13:52 06/04/2025 14:25:08 [id number] Manfred Shelton MD Main Office [address] [place] [address] 06/05/2025 10:55:07 06/05/2025 16:50:44 Health Concerns Section Related Observation LastModified by Organization Detai ls LastModified Time None Recorded Concern Status LastModified by Organization Details LastModified Time None Recorded Payers Encounter Date Sequence Insurance Name Policy Number Policy Gonzales Covered Member ID Gonzales Member ID Guarantor Name 06/05/2025 2 [employer] Seema Delacruz [id number] Seema Delacruz 06/05/2025 1 [employer] Seema Delacruz [id number] Seema SANDOVALStephanie Episode No OBEpisode recorded.
--- OUTSIDE RECORDS SUMMARY | 2025-07-06 16:10 | XMS_ITS | Continuity of Care Document ---
Author Organization [place] - [facility], Main Office Address [address] [place] [address] Care Team Providers Care Hearing Impaired Teacher Name Role Phone STEPHY YUSUF Primary Care Provider [phone] Assessment No assessment recorded. Plan of Treatment Reminders Order Date Submit Date Provider Last Modified By Organization Details Last Modified Time Details Appointments Hyperb ujlio Therap [id number] 2024 10:30A M [...] Modified By Organization Details Last Modified Time 06/11/2025 5779 BACKGROUND: Seema Delacruz is a 55 y.o. [...] E11.621 ___ ___ Session Notes: Today's Date 11Jun2025 HBOT session 28 40 Next HBOT 12Jun2025 30Jul - Patient cleared for 1st HBOT [...] full session with no problem. [place].Jessica Lau SOCIAL WORKER AIDE 04Aug - Patient deemed safe for HBOT today. VS stable. Patient completed full session with no problem. Antoinette Lau SOCIAL WORKER AIDE 05Aug - patient out for another appt. [...] antibiotics for an upper respiratory infection. Nicolasa SOCIAL WORKER AIDE 07Aug- Patient cleared for HBOT today. VS stable. PAtient had little trouble reaching pressure today, but had to come out of chamber early due to needing to use restroom. She managed to do 4 segs-118 minutes. [place].Tanner SOCIAL WORKER AIDE 08Aug - Patient cleared for HBOT today. VS stable. Patient completed full session with no problem. Antoinette Lau SOCIAL WORKER AIDE 11Aug - Patient cleared for HBOT today. [...] full session with no problem. Antoinette Lau SOCIAL WORKER AIDE 13Aug - Patient cleared for HBOT today. VS stable. Patient completed full session with no problem. Wound care to follow treatment today. Antoinette Lau SOCIAL WORKER AIDE 14Aug - Patient cleared for HBOT today. VS stable. Patient completed full session with no problem. Antoinette Lau SOCIAL WORKER AIDE 15Aug - Patient cleared for HBOT today. [...] attempt to try again on Sunday. Nicolasa SOCIAL WORKER AIDE 18Aug - Patient cleared for HBOT today. VS stable. Patient completed full session with no problem. Antoinette Lau SOCIAL WORKER AIDE 19Aug - Patient deemed safe for HBOT today. VS stable. FSBS within range. Patient completed full session with no problem. Antoinette Lau SOCIAL WORKER AIDE 2015Aug - Patient cleared for HBOT today. [...] date andcompleted full session free of problem. [facility] [place] 29Aug - Cleared for [...] full session with no problem. Antoinette Judi SOCIAL WORKER AIDE 10Sep - Patient deemed safe for HBOT today. VS stable. Patient completed full session with no problem. Antoinette Sotowood SOCIAL WORKER AIDE 11Sep - Patient cleared for HBOT today. VS stable. Patient completed full session with no problem. Antoinette Sotowood SOCIAL WORKER AIDE Not available 06/11/2025 14:11:02 Reason for Referral None Reported. Problems Name Problem SNOMED Code Status Onset Date Resolution Date Notes Provider Name and Address Organization Details Recorded Time Upper respiratory infection 61008475 Active 2024 COLEMAN LAU NP null, [place] - [facility] 12:18:40 Episodic migraine 4332259045813 Active 2024 COLEMAN LAU NP null, [place] - [facility] 12:34:01 Type 2 diabetes mellitus 93749421 Active 2024 COLEMAN LAU NP null, [place] - [facility] 15:27:12 Refractory migraine with aura 657997141 Active 2024 COLEMAN LAU NP null, [place] - [facility] 10:56:52 Problem Notes None recorded. Procedures Surgical History Date Name Laterality Status Provider Name and Address Organization Details Recorded Time 07/06/20 25 [facility] Therapy Treatment Form completed Carolyn roland [place] - [facility] 07/06/2025 13:06:29 07/03/20 [...] Care Therapy Treatment Form completed Carolyn roland [place] - [facility] 06/29/2025 13:24:58 06/26/20 25 [facility] Therapy Treatment Form completed Manfred Shelton MD [place] - [facility] 06/26/2025 16:57:55 06/25/20 25 [facility] Therapy Treatment Form completed [facility] - [facility] 06/25/2025 12:47:07 06/24/20 25 [facility] Therapy Treatment Form completed [facility] - [facility] 06/24/2025 12:40:20 06/23/20 25 [facility] Therapy Treatment Form completed [facility] - [facility] 06/23/2025 12:39:50 06/22/20 25 [facility] Therapy Treatment Form completed [facility] - [facility] 06/22/2025 12:49:55 06/19/20 25 [facility] Therapy Treatment Form completed Manfred Shelton MD [place] - [facility] 06/19/2025 14:13:24 06/18/20 25 [facility] Therapy Treatment Form completed COLEMAN LAU NP [place] - [facility] 06/18/2025 13:17:34 06/17/20 25 [facility] Therapy Treatment Form completed [facility] - [facility] 06/17/2025 12:29:15 06/16/20 25 [facility] Therapy Treatment Form completed [facility] - [facility] 06/16/2025 12:45:53 06/15/20 25 [facility] Therapy Treatment Form completed [facility] - [facility] 06/15/2025 12:47:07 06/12/20 25 [facility] Therapy Treatment Form completed Manfred Shelton MD [place] - [facility] 06/12/2025 14:54:52 06/11/20 25 [facility] Therapy Treatment Form completed [facility] - [facility] 06/11/2025 13:02:39 06/10/20 25 [facility] Therapy Treatment Form completed [facility] - [facility] 06/10/2025 12:50:18 06/08/20 25 [facility] Therapy Treatment Form completed [facility] - [facility] 06/08/2025 12:56:07 06/05/20 25 [facility] Therapy Treatment Form completed Evelia Winters [place] - [facility] 06/05/2025 14:28:16 06/04/20 [...] Not available Not available Not available 04/23/2025 91359 3 RxNorm Luciana servin, [place] - [facility] 14:25:27 1104 Avelox medicatio n Not available Not available Not available 04/23/2025 64155 6 RxNorm Lucinaa servin, [place] - [facility] 14:25:52 1105 metformin medicatio n other Not available low 04/23/20252023 6809 RxNorm GI issue s Luciana servin, [place] - [facility] 14:26:11 1253 Product containin g angiotens in-conver ting enzyme inhibitor (product) medicatio n cough moderate Not available 06/26/2025 44386 009 SNOMED Not Available taisha - External Data [employer] - prod 5 10:54:20 1254 metformin hydrochlo ride medicatio n Not available Not available Not available 06/26/2025 74622 3 RxNorm Not Available ringsted - External Data Service - prod 10:54:20 [...] Updated DateTime 5 81 /min 16 /min 97.9 [degF] 87 % 87 % 67 /min 16 /min 98.4 [degF] 97 % 97 % 159/81 mm[Hg] 151/76 mm[Hg] [facility] [place] - [facility] 5 13:02:19 Social History None recorded. Functional Status None [...] Office [address] [place] [address] 05/11/2025 10:59:55 05/11/2025 14:43:45 Type 2 diabetes mellitus 10556317 E11.69 [id number] [id number] Manfred Shelton MD Main Office [address] [place] [address] 05/12/2025 10:58:25 05/12/2025 16:06:58 4891 Manfred Shelton MD Main Office [address] [place] , [place] [address] 05/13/2025 10:26:11 05/13/2025 14:22:52 Type 2 diabetes mellitus 03785724 E11.69 [id number] 4894 Manfred Shelton MD Main Office [address] [place] [address] 05/13/2025 13:16:44 05/13/2025 14:39:17 4914 Manfred Shelton MD Main Office [address] [place] [address] 05/14/2025 10:20:17 05/14/2025 16:02:14 4939 Manfred Shelton MD Main Office [address] [place] [address] 05/15/2025 10:48:13 05/18/2025 08:48:44 4959 Manfred Shelton MD Main Office [address] [place] [address] 05/18/2025 10:59:56 05/18/2025 15:48:37 Type 2 diabetes mellitus 43780053 E11.69 [id number] [id number] Manfred Shelton MD Main Office [address] [place] , [place] [address] 05/19/2025 11:07:27 05/19/2025 14:52:31 5002 Manfred Shelton MD Main Office [address] [place] , [place] [address] 05/20/2025 11:36:16 05/20/2025 13:20:26 5003 Manfred Shelton MD Main Office [address] [place] , [place] [address] 05/20/2025 12:28:38 05/20/2025 13:24:07 5019 Manfred Shelton MD Main Office [address] [place] [address] 05/21/2025 10:14:02 05/22/2025 08:40:53 5034 Manfred Shelton MD Main Office [address] [place] [address] 05/22/2025 10:05:00 05/22/2025 14:31:52 5054 COLEMAN JUDI, COMPRESSION MOLDING MACHINE OPERATOR Main Office [address] [place] [address] 05/25/2025 10:54:17 05/25/2025 14:23:41 5071 COLEMAN SOTOWOOD, COMPRESSION MOLDING MACHINE OPERATOR Main Office [address] [place] [address] 05/26/2025 10:04:52 05/26/2025 13:22:24 5083 COLEMAN JUDI, COMPRESSION MOLDING MACHINE OPERATOR Main Office [address] [place] [address] 05/26/2025 16:38:48 05/26/2025 16:40:45 5087 COLEMANPATRICE LAU, COMPRESSION MOLDING MACHINE OPERATOR Main Office [address] [place] [address] 05/27/2025 10:11:43 05/27/2025 13:22:20 5093 COLEMANPATRICE LAU, COMPRESSION MOLDING MACHINE OPERATOR Main Office [address] [place] [address] 05/27/2025 13:11:38 05/27/2025 13:19:10 5104 Manfred Shelton MD Main Office [address] [place] [address] 05/28/2025 10:14:13 05/29/2025 08:47:13 5117 Manfred Shelton MD Main Office [address] [place] [address] 05/29/2025 10:04:58 05/29/2025 17:43:48 5132 Manfred Shelton MD Main Office [address] [place] [address] 06/02/2025 10:25:50 06/02/2025 14:14:27 5149 Manfred Shelton MD Main Office [address] [place] [address] 06/03/2025 10:16:52 06/03/2025 14:45:20 [id number] Manfred Shelton MD Main Office [address] [place] [address] 06/04/2025 10:31:23 06/04/2025 13:58:07 5173 Manfred Shelton MD Main Office [address] [place] [address] 06/04/2025 14:13:52 06/04/2025 14:25:08 5186 Manfred Shelton MD Main Office [address] [place] [address] 06/05/2025 10:55:07 06/05/2025 16:50:44 5202 Manfred Shelton MD Main Office [address] [place] [address] 06/08/2025 10:25:37 06/08/2025 14:39:12 [id number] Manfred Shelton MD Main Office [address] [place] [address] 06/10/2025 10:19:13 06/10/2025 13:21:20 [id number] Manfred Shelton MD Main Office [address] [place] [address] 06/11/2025 10:35:04 06/11/2025 14:11:07 Health Concerns Section Related Observation LastModified by Organization Detai ls LastModified Time None Recorded Concern Status LastModified by Organization Details LastModified Time None Recorded Payers Encounter Date Sequence Insurance Name Policy Number Policy Gonzales Covered Member ID Gonzales Member ID Guarantor Name 06/11/2025 2 [employer] Seema Delacruz [id number] Seema Delacruz 06/11/2025 1 [employer] Seema Delacruz [id number] Seema Delacruz OBGyn Episode No OBEpisode recorded.
--- OUTSIDE RECORDS SUMMARY | 2025-07-06 16:10 | XMS_ITS | Continuity of Care Document ---
Author Organization [place] - [facility], Main Office Address [address] [place] [address] Care Team Providers Care Lining Mechanic Name Role Phone STEPHY YUSUF Primary [...] Modified By Organization Details Last Modified Time 06/08/2025 9103 BACKGROUND: Seema Delacruz is a 55 y.o. [...] E11.621 ___ ___ Session Notes: Today's Date 08Jun2025 HBOT session 40 Next HBOT 09Jun2025 30Jul - Patient cleared for 1st HBOT [...] full session with no problem. [place].Jessica Lau ASSISTANT STORE MANAGER 04Aug - Patient deemed safe for HBOT today. VS stable. Patient completed full session with no problem. Antoinette Lau ASSISTANT STORE MANAGER 05Aug - patient out for another [...] antibiotics for an upper respiratory infection. Nicolasa ASSISTANT STORE MANAGER 07Aug- Patient cleared for HBOT today. VS stable. PAtient had little trouble reaching pressure today, but had to come out of chamber early due to needing to use restroom. She managed to do 4 segs-118 minutes. [place].Tanner ASSISTANT STORE MANAGER 08Aug - Patient cleared for HBOT today. VS stable. Patient completed full session with no problem. Antoinette Lau ASSISTANT STORE MANAGER 11Aug - Patient cleared for HBOT [...] full session with no problem. Antoinette Lau ASSISTANT STORE MANAGER 13Aug - Patient cleared for HBOT today. VS stable. Patient completed full session with no problem. Wound care to follow treatment today. Antoinette Lau ASSISTANT STORE MANAGER 14Aug - Patient cleared for HBOT today. VS stable. Patient completed full session with no problem. Antoinette Lau ASSISTANT STORE MANAGER 15Aug - Patient cleared for HBOT [...] attempt to try again on Sunday. Nicolasa ASSISTANT STORE MANAGER 18Aug - Patient cleared for HBOT today. VS stable. Patient completed full session with no problem. Antoinette Lau ASSISTANT STORE MANAGER 19Aug - Patient deemed safe for HBOT today. VS stable. FSBS within range. Patient completed full session with no problem. Antoinette Lau ASSISTANT STORE MANAGER 2015Aug - Patient cleared for HBOT [...] date andcompleted full session free of problem. [facility] 29Aug - Cleared for HBOT his date [...] full session with no problem. Antoinette Sotowood ASSISTANT STORE MANAGER Not available 06/08/2025 14:39:07 Reason for Referral None Reported. Problems Name Problem SNOMED Code Status Onset Date Resolution Date Notes Provider Name and Address Organization Details Recorded Time Upper respiratory infection 40392181 Active 2024 COLEMAN LAU NP null, [place] - [facility] 12:18:40 Episodic migraine 2324009250435 Active 2024 COLEMAN LAU NP null, [place] - [facility] 12:34:01 Type 2 diabetes mellitus 63781697 Active 2024 COLEMAN LAU NP null, [place] - [facility] 15:27:12 Refractory migraine with aura 274070389 Active 2024 COLEMAN LAU NP null, [place] - [facility] 10:56:52 Problem Notes None recorded. Procedures Surgical History Date Name Laterality Status Provider Name and Address Organization Details Recorded Time 07/06/20 [facility] Therapy Treatment Form completed Carolyn roland [place] - [facility] 07/06/2025 13:06:29 07/03/20 25 [facility] Therapy Treatment Form completed Paula Licea [place] - [facility] 07/03/2025 12:47:29 07/02/20 25 [facility] Therapy Treatment Form completed Paula Licea [place] - [facility] 07/02/2025 13:06:39 07/01/20 25 [facility] Therapy Treatment Form completed Paula Licea [place] - [facility] 07/01/2025 13:05:37 06/30/20 25 [facility] Therapy Treatment Form completed COLEMAN LAU NP [place] - [facility] 06/30/2025 13:46:12 06/29/20 25 [facility] Therapy Treatment Form completed Carolyn roland [place] - [facility] 06/29/2025 13:24:58 06/26/20 25 [facility] Therapy Treatment Form completed Manfred Shelton MD [place] - [facility] 06/26/2025 16:57:55 06/25/20 25 [facility] Therapy Treatment Form completed Carolyn roland [place] - [facility] 06/25/2025 12:47:07 06/24/20 [...] Shelton MD [place] - [facility] 06/12/2025 14:54:52 06/11/20 [...] Evelia Singh [place] - [facility] 06/03/2025 14:11:11 [...] Carolyn roland [place] - [facility] 05/26/2025 12:27:56 05/25/20 25 [facility] Therapy Treatment Form completed Carolyn roland [place] - [facility] 05/25/2025 13:12:32 05/22/20 25 [facility] Therapy Treatment Form completed Carolyn roland [place] - [facility] 05/22/2025 12:33:28 05/21/20 25 [facility] Therapy Treatment Form completed Carolyn roland [place] - [facility] 05/21/2025 12:47:49 05/20/20 [...] Carolyn roland [place] - [facility] 05/18/2025 13:22:00 05/15/20 [...] 14:33:07 amputation of toe completed Luciana Noriega [place] - [facility] 04/23/2025 14:33:26 Imaging [...] Not available Not available Not available 04/23/2025 98607 3 RxNorm Luciana servin [place] - [facility] 14:25:27 1104 Avelox medicatio n Not available Not available Not available 04/23/2025 65509 6 RxNorm [place] - [facility] 14:25:52 1105 metformin medicatio n other Not available low 04/23/20252023 6809 RxNorm GI issue s [place] - [facility] 14:26:11 1253 Product containin g angiotens in-conver ting enzyme inhibitor (product) medicatio n cough moderate Not available 06/26/2025 09010 009 SNOMED Not Available taisha - External Data Service - prod 5 10:54:20 1254 metformin hydrochlo ride medicatio n Not available Not available Not available 06/26/2025 90210 3 RxNorm Not Available taisha - External [...] Updated DateTime 5 73 /min 16 /min 97.9 [degF] 92 % 92 % 66 /min 16 /min 97.5 [degF] 92 % 92 % 142/69 mm[Hg] 117/63 mm[Hg] [facility] - [facility] 5 12:56:20 Social History None recorded. Functional Status None [...] ICD10 Code Diagnosis IMO Codes Diagnosis Note 4802 Manfred Shelton MD Main Office [address] [address] [place] [address] 05/08/2025 10:55:11 05/08/2025 14:31:10 4806 Manfred Shelton MD Main Office [address] [address] [place] [address] 05/08/2025 13:08:42 05/08/2025 14:13:22 4821 Manfred Shelton MD Main Office [address] [place] [address] 05/11/2025 10:59:55 05/11/2025 14:43:45 Type 2 diabetes mellitus 25517349 E11.69 [id number] 4851 Manfred Shelton MD Main Office [address] [place] [address] 05/12/2025 10:58:25 05/12/2025 16:06:58 4891 Manfred Shelton MD Main Office [address] [place] [address] 05/13/2025 10:26:11 05/13/2025 14:22:52 Type 2 diabetes mellitus 75498309 E11.69 [id number] 4894 Manfred Shelton MD Main Office [address] [place] [address] 05/13/2025 13:16:44 05/13/2025 14:39:17 4914 Manfred Shelton MD Main Office [address] [place] [address] 05/14/2025 10:20:17 05/14/2025 16:02:14 4939 Manfred Shelton MD Main Office [address] [place] [address] 05/15/2025 10:48:13 05/18/2025 08:48:44 4959 Manfred Shelton MD Main Office [address] [place] [address] 05/18/2025 10:59:56 05/18/2025 15:48:37 Type 2 diabetes mellitus 02451551 E11.69 [id number] 4981 Manfred Shelton MD Main Office [address] [place] [address] 05/19/2025 11:07:27 05/19/2025 14:52:31 5002 Manfred Shelton MD Main Office [address] [place] [address] 05/20/2025 11:36:16 05/20/2025 13:20:26 5003 Manfred Shelton MD Main Office [address] [place] [address] 05/20/2025 12:28:38 05/20/2025 13:24:07 5019 Manfred Shelton MD Main Office [address] [place] [address] 05/21/2025 10:14:02 05/22/2025 08:40:53 5034 Manfred Shelton MD Main Office [address] [place] [address] 05/22/2025 10:05:00 05/22/2025 14:31:52 5054 COLEMAN LAU, REGISTERED APPRAISER Main Office [address] [place] [address] 05/25/2025 10:54:17 05/25/2025 14:23:41 5071 COLEMAN LAU, REGISTERED APPRAISER Main Office [address] [place] [address] 05/26/2025 10:04:52 05/26/2025 13:22:24 5083 COLEMANPATRICE LAU, REGISTERED APPRAISER Main Office [address] [place] [address] 05/26/2025 16:38:48 05/26/2025 16:40:45 5087 COLEMAN LAU, REGISTERED APPRAISER Main Office [address] [place] [address] 05/27/2025 10:11:43 05/27/2025 13:22:20 5093 COLEMAN LAU, REGISTERED APPRAISER Main Office [address] [place] [address] 05/27/2025 13:11:38 05/27/2025 13:19:10 5104 Manfred Shelton MD Main Office [address] [place] [address] 05/28/2025 10:14:13 05/29/2025 08:47:13 5117 Manfred Shelton MD Main Office [address] [place] [address] 05/29/2025 10:04:58 05/29/2025 17:43:48 5132 Manfred Shelton MD Main Office [address] [place] [address] 06/02/2025 10:25:50 06/02/2025 14:14:27 5149 Manfred Shelton MD Main Office [address] [place] [address] 06/03/2025 10:16:52 06/03/2025 14:45:20 5163 Manfred Shelton MD Main Office [address] [place] [address] 06/04/2025 10:31:23 06/04/2025 13:58:07 5173 Manfred Shelton MD Main Office [address] [place] [address] 06/04/2025 14:13:52 06/04/2025 14:25:08 5186 Manfred Shelton MD Main Office [address] [place] [address] 06/05/2025 10:55:07 06/05/2025 16:50:44 5202 Manfred Shelton MD Main Office [address] [place] [address] 06/08/2025 10:25:37 06/08/2025 14:39:12 Health Concerns Section Related Observation LastModified by Organization Detai ls LastModified Time None Recorded Concern Status LastModified by Organization Details LastModified Time None Recorded Payers Encounter Date Sequence Insurance Name Policy Number Policy Gonzales Covered Member ID Gonzales Member ID Guarantor Name 06/08/2025 2 [employer] Seema Delacruz [id number] Seema Delacruz 06/08/2025 1 [employer] Seema Delacruz [id number] Seema Delacruz OBGyn Episode No OBEpisode recorded.
--- OUTSIDE RECORDS SUMMARY | 2025-07-06 16:11 | XMS_ITS | Continuity of Care Document ---
Author Organization [place] [facility], Main Office Address [address] [place] [address] Care Team Providers Care Loom Blower Name Role Phone STEPHY YUSUF Primary Care [...] Modified By Organization Details Last Modified Time 05/28/2025 [id number] BACKGROUND: Seema Delacruz is a 55 y.o. [...] Diagnosis: L97.512, E11.621 Session Notes: Today's Date [id number] HBOT session 20 of 40 Next HBOT [id number] 30Jul - Patient cleared for 1st HBOT [...] her wear ear plugs during treatment. Nicolasa HE[employer] OCCUPATIONS INSTRUCTOR 31July - Patient cleared for HBOT today. [...] slightly red, but she was asymptomatic. [place].Tanner HEALTH OCCUPATIONS INSTRUCTOR 01Aug - Patient deemed safe for HBOT today. VS stable. Patient completed full session with no problem. [place].Jessica Lau HEALTH OCCUPATIONS INSTRUCTOR 04Aug - Patient deemed safe for HBOT today. VS stable. Patient completed full session with no problem. Antoinette Lau HEALTH OCCUPATIONS INSTRUCTOR 05Aug - patient out for another [...] antibiotics for an upper respiratory infection. Nicolasa HEALTH OCCUPATIONS INSTRUCTOR 07Aug- Patient cleared for HBOT today. VS stable. PAtient had little trouble reaching pressure today, but had to come out of chamber early due to needing to use restroom. She managed to do 4 segs-118 minutes. [place].Tanner HEALTH OCCUPATIONS INSTRUCTOR 08Aug - Patient cleared for HBOT today. VS stable. Patient completed full session with no problem. Antoinette Lau HEALTH OCCUPATIONS INSTRUCTOR 11Aug - Patient cleared for HBOT [...] full session with no problem. Antoinette Lau HEALTH OCCUPATIONS INSTRUCTOR 13Aug - Patient cleared for HBOT today. VS stable. Patient completed full session with no problem. Wound care to follow treatment today. Antoinette Lau HEALTH OCCUPATIONS INSTRUCTOR 14Aug - Patient cleared for HBOT today. VS stable. Patient completed full session with no problem. Antoinette Lau HEALTH OCCUPATIONS INSTRUCTOR 15Aug - Patient cleared for HBOT [...] attempt to try again on Sunday. Nicolasa HEALTH OCCUPATIONS INSTRUCTOR 18Aug - Patient cleared for HBOT today. VS stable. Patient completed full session with no problem. Antoinette Lau HEALTH OCCUPATIONS INSTRUCTOR 19Aug - Patient deemed safe for HBOT today. VS stable. FSBS within range. Patient completed full session with no problem. Antoinette Lau HEALTH OCCUPATIONS INSTRUCTOR 2015Aug - Patient cleared for HBOT today. VS stable. Soon after reaching pressure, patient states that she is having anxiety, and wants to come out of chamber. We tried turning down pressure, and giving an air break, but she still insist on coming out. We brought her out, VS stable, wound care done. CompaIsael HEALTH OCCUPATIONS INSTRUCTOR 21Aug - Patient deemed safe for HBOT today. VS stable. FSBS within range. Patient completed full session with no problem. Patient better tolerated treatment today in larger chamber with no reports of anxiety during treatment. CompaDeepali Lau APRN 22Aug - Cleared for HBOT this date and did complete full session with no problem including no significant anxiety. Dressing change today per nursing. [facility] 25Aug - Patient deemed safe for HBOT today. VS stable. Patient completed full session with no problem. IsraelDeepaliMonicaDeepali Lau APRN 26Aug - Patient cleared for HBOT today. VS stable. Patient completed full session with no problem. I spoke with patient, and she feels much better in the larger chamber, having almost no anxiety at all now. IsraelIlsa Lau HEALTH OCCUPATIONS INSTRUCTOR 27Aug - Patient deemed safe for HBOT today. VS stable. FSBS within range. Patient completed full session with no problem. IsraelDeepaliMonicaDeepali Lau HEALTH OCCUPATIONS INSTRUCTOR 28Aug - Found safe for HBOT this date andcompleted full session free of problem. [facility] [email or web address] Not available 05/29/2025 08:47:03 Reason for Referral None Reported. Problems Name Problem SNOMED Code Status Onset Date Resolution Date Notes Provider Name and Address Organization Details Recorded Time Upper respiratory infection 84761711 Active 2024 COLEMAN LAU NP null, [place] - [facility] 12:18:40 Episodic migraine 8358822278340 Active 2024 COLEMAN LAU NP null, [place] - [facility] 12:34:01 Type 2 diabetes mellitus 78779278 Active 2024 COLEMAN LAU NP null, [place] - [facility] 15:27:12 Refractory migraine with aura [id number] Active 2024 COLEMAN LAU NP null, [place] - [facility] 10:56:52 Problem Notes None recorded. Procedures Surgical History Date Name Laterality Status Provider Name and Address Organization Details Recorded Time 07/06/20 25 [facility] Therapy Treatment Form completed Carolyn roland [place] [facility] 07/06/2025 13:06:29 07/03/20 25 [facility] Therapy Treatment Form completed Paula Licea [place] - [facility] 07/03/2025 12:47:29 07/02/20 25 [facility] Therapy Treatment Form completed Paula BERNAL - [facility] 07/02/2025 13:06:39 07/01/20 25 [facility] Therapy Treatment Form completed Paula Licea [place] - [facility] 07/01/2025 13:05:37 06/30/20 25 [facility] Therapy Treatment Form completed COLEMAN LAU NP [place] - [facility] 06/30/2025 13:46:12 06/29/20 25 [facility] Therapy Treatment Form completed Carolyn roland [place] - [facility] 06/29/2025 13:24:58 06/26/20 25 [facility] Therapy Treatment Form completed Manfred Shelton [place] - [facility] 06/26/2025 16:57:55 06/25/20 25 [facility] Therapy Treatment Form completed Carolyn luan [place] - [facility] 06/25/2025 12:47:07 06/24/20 25 [facility] Therapy Treatment Form completed Carolyn luan [place] - [facility] 06/24/2025 12:40:20 06/23/20 25 [facility] Therapy Treatment Form completed Carolyn luan [place] - [facility] 06/23/2025 12:39:50 06/22/20 25 [facility] Therapy Treatment Form completed Carolyn luan [place] - [facility] 06/22/2025 12:49:55 06/19/20 25 [facility] Therapy Treatment Form completed Manfred Shelton [place] - [facility] 06/19/2025 14:13:24 06/18/20 25 [facility] Therapy Treatment Form completed COLEMAN LAU NP [place] - [facility] 06/18/2025 13:17:34 06/17/20 25 [facility] Therapy Treatment Form completed Carolyn roland [place] - [facility] 06/17/2025 12:29:15 06/16/20 25 [facility] Therapy Treatment Form completed Carolyn roland [place] - [facility] 06/16/2025 12:45:53 06/15/20 25 [facility] Therapy Treatment Form completed [facility] - [facility] 06/15/2025 12:47:07 06/12/20 25 [facility] Therapy Treatment Form completed Manfred Shelton MD [place] - [facility] 06/12/2025 14:54:52 06/11/20 25 [facility] Therapy Treatment Form completed [facility] - [facility] 06/11/2025 13:02:39 06/10/20 25 [facility] Therapy Treatment Form completed [facility] - [facility] 06/10/2025 12:50:18 06/08/20 25 [facility] Therapy Treatment Form completed [facility] - [facility] 06/08/2025 12:56:07 06/05/20 25 [facility] Therapy Treatment Form completed Eveliapatricia Winters [place] - [facility] 06/05/2025 14:28:16 06/04/20 [...] [facility] Therapy Treatment Form completed [facility] - [facility] 06/02/2025 13:09:37 05/29/20 25 [facility] Therapy Treatment Form completed [facility] - [facility] 05/29/2025 12:25:31 05/28/20 25 [facility] Therapy Treatment Form completed [facility] - [facility] 05/28/2025 13:02:44 05/27/20 25 Wound completed COLEMAN LAU NP [place] - [facility] 05/27/2025 13:18:22 05/27/20 25 [facility] Therapy Treatment Form completed [facility] - [facility] 05/27/2025 12:50:01 05/26/20 25 Nurse Note completed Luciana Noriega [place] [facility] 05/26/2025 16:40:42 05/26/20 25 [facility] Therapy Treatment Form completed [facility] - [facility] 05/26/2025 12:27:56 05/25/20 [...] Mary Ruben [place] - [facility] 05/12/2025 13:20:36 05/11/20 25 [facility] Therapy Treatment Form completed Moraimafélix Johnsons [place] - [facility] 05/11/2025 14:12:30 05/08/20 25 Wound completed COLEMAN LAU NP [place] - [facility] 05/08/2025 14:12:38 05/08/20 25 [facility] Therapy Treatment Form completed Crystal Ruben [place] - [facility] 05/08/2025 13:37:30 [...] available Not available 04/23/2025 9449 RxNorm Luciana Gonzalesell malathi, [place] - [facility] 14:25:10 1103 Inapsine medicatio n Not available Not available Not available 04/23/202509296 3 RxNorm Luciana servin, [place] - [facility] 5 14:25:27 1104 Avelox medicatio n Not available Not available Not available 04/23/2025 73561 6 RxNorm Luciana servin, [place] - [facility] 5 14:25:52 1105 metformin medicatio n other Not available low 04/23/20252023 6809 RxNorm GI issue s Luciana servin, [place] - [facility] 14:26:11 1253 Product containin g angiotens in-conver ting enzyme inhibitor (product) medicatio n cough moderate Not available 06/26/2025 59226 009 SNOMED Not Available [employer] - [employer] - prod 10:54:20 1254 metformin hydrochlo ride medicatio n Not available Not available Not available 06/26/2025 20590 3 RxNorm Not Available [employer] - prod 10:54:20 Medications Name [...] Updated DateTime 5 78 /min 16 /min 98.8 [degF] 88 % 88 % 72 /min 16 /min 97.9 [degF] 94 % 94 % 140/83 mm[Hg] 139/80 mm[Hg] Carolyn roland [place] - [facility] 5 13:04:07 Date Recorded Heart rate Respiratory rate Body temperature Oxygen saturation Oxygen saturation in Arterial blood by Pulse oximetry Heart rate Respiratory rate Body temperature Oxygen saturation Oxygen saturation in Arterial blood by Pulse oximetry Systolic And Diastolic Systolic And Diastolic Provider Name and Address Organization Details Last Updated DateTime 5 78 /min 16 /min 99 [degF] 85 % 85 % 69 /min 16 /min 97.9 [degF] 90 % 90 % 154/69 mm[Hg] 128/73 mm[Hg] Carolyn luan [place] - [facility] 5 12:25:45 Social History None recorded. Functional Status None [...] MD Main Office [address] [place] [address] 04/29/2025 10:50:02 04/29/2025 15:41:17 [id number] Manfred Shelton MD Main Office [address] [place] [address] 04/30/2025 11:16:06 04/30/2025 14:19:33 [id number] Manfred Shelton MD Main Office [address] [place] [address] 05/01/2025 10:18:55 05/01/2025 13:10:41 [id number] Manfred Shelton MD Main Office [address] [place] [address] 05/04/2025 10:46:48 05/04/2025 14:18:05 [id number] Manfred Shelton MD Main Office [address] [place] , [place] [address] 05/06/2025 10:55:59 05/06/2025 11:32:38 [id number] Manfred Shelton MD Main Office [address] [place] , [place] [address] 05/06/2025 13:04:28 05/07/2025 08:30:09 [id number] Manfred Shelton MD Main Office [address] [place] , [place] [address] 05/07/2025 10:45:55 05/08/2025 10:40:32 [id number] Manfred Shelton MD Main Office [address] [place] , [place] [address] 05/08/2025 10:55:11 05/08/2025 14:31:10 [id number] Manfred Shelton MD Main Office [address] [place] , [place] [address] 05/08/2025 13:08:42 05/08/2025 14:13:22 [id number] Manfred Shelton MD Main Office [address] [place] , [place] [address] 05/11/2025 10:59:55 05/11/2025 14:43:45 Type 2 diabetes mellitus 54783323 E11.69 [id number] Manfred Shelton MD Main Office [address] [place] , [place] [address] 05/12/2025 10:58:25 05/12/2025 16:06:58 [id number] Manfred Shelton MD Main Office [address] [place] , [place] [address] 05/13/2025 10:26:11 05/13/2025 14:22:52 Type 2 diabetes mellitus 83341391 E11.69 [id number] Manfred Shelton MD Main Office [address] [place] , [place] [address] 05/13/2025 13:16:44 05/13/2025 14:39:17 [id number] Manfred Shelton MD Main Office [address] [place] [id number] 05/14/2025 10:20:17 05/14/2025 16:02:14 [id number] Manfred Shelton MD Main Office [address] [place] [address] 05/15/2025 10:48:13 05/18/2025 08:48:44 [id number] Manfred Shelton MD Main Office [address] [place] [address] 05/18/2025 10:59:56 05/18/2025 15:48:37 Type 2 diabetes mellitus 39899049 E11.69 [id number] Manfred Shelton MD Main Office [address] [place] [address] 05/19/2025 11:07:27 05/19/2025 14:52:31 [id number] Manfred Shelton MD Main Office [address] [place] [address] 05/20/2025 11:36:16 05/20/2025 13:20:26 5003 Manfred Shelton MD Main Office [address] [place] [address] 05/20/2025 12:28:38 05/20/2025 13:24:07 [id number] Manfred Shelton MD Main Office [address] [place] [id number] 05/21/2025 10:14:02 05/22/2025 08:40:53 [id number] Manfred Shelton MD Main Office [address] [place] [address] 05/22/2025 10:05:00 05/22/2025 14:31:52 [id number] COLEMAN LAU NP Main Office [address] [place] , [place] [address] 05/25/2025 10:54:17 05/25/2025 14:23:41 [id number] COLEMAN LAU NP Main Office [address] [place] [address] 05/26/2025 10:04:52 05/26/2025 13:22:24 [id number] COLEMAN LAU NP Main Office [address] [place] [address] 05/26/2025 16:38:48 05/26/2025 16:40:45 [id number] COLEMANPATRICE LAU NP Main Office [address] [place] [address] 05/27/2025 10:11:43 05/27/2025 13:22:20 5093 COLEMAN LAU NP Main Office [address],[facility] [address] [place] [address] 05/27/2025 13:11:38 05/27/2025 13:19:10 [id number] Manfred Shelton MD Main Office [address],[facility] [address] [place] [address] 05/28/2025 10:14:13 05/29/2025 08:47:13 Health Concerns Section Related Observation LastModified by Organization Detai ls LastModified Time None Recorded Concern Status LastModified by Organization Details LastModified Time None Recorded Payers Encounter Date Sequence Insurance Name Policy Number Policy Gonzales Covered Member ID Gonzales Member ID Guarantor Name 05/28/2025 2 [employer] Seema Delacruz [id number] Seema Delacruz 05/28/2025 1 [employer] Seema Delacruz [id number] Seema Delacruz OBGyn Episode No OBEpisode recorded.
--- OUTSIDE RECORDS SUMMARY | 2025-07-06 16:11 | XMS_ITS | Continuity of Care Document ---
Author Organization [place] - [facility], Main Office Address [address] [place] [address] Care Team Providers Care Associate Justice Name Role Phone STEPHY YUSUF Primary Care Provider [phone] Assessment No assessment recorded. Plan of Treatment [...] Modified By Organization Details Last Modified Time 06/18/2025 6992 BACKGROUND: Seema Delacruz is a 55 y.o. [...] E11.621 ___ ___ Session Notes: Today's Date [id number] HBOT session 33 of 40 Next HBOT [id number] 30Jul - Patient cleared for 1st HBOT [...] full session with no problem. Antoinette Lau INSIDE WIRER 04Aug - Patient deemed safe for HBOT today. VS stable. Patient completed full session with no problem. Antoinette Lau INSIDE WIRER 05Aug - patient out for another appt. [...] antibiotics for an upper respiratory infection. Nicolasa INSIDE WIRER 07Aug- Patient cleared for HBOT today. VS stable. PAtient had little trouble reaching pressure today, but had to come out of chamber early due to needing to use restroom. She managed to do 4 segs-118 minutes. [place].Tanner INSIDE WIRER 08Aug - Patient cleared for HBOT today. VS stable. Patient completed full session with no problem. Antoinette Lau INSIDE WIRER 11Aug - Patient cleared for HBOT today. [...] full session with no problem. [place].Jessica Lau INSIDE WIRER 13Aug - Patient cleared for HBOT today. VS stable. Patient completed full session with no problem. Wound care to follow treatment today. Antoinette Lau INSIDE WIRER 14Aug - Patient cleared for HBOT today. VS stable. Patient completed full session with no problem. Antoinette Lau INSIDE WIRER 15Aug - Patient cleared for HBOT today. [...] attempt to try again on Sunday. Nicolasa INSIDE WIRER 18Aug - Patient cleared for HBOT today. VS stable. Patient completed full session with no problem. Antoinette Lau INSIDE WIRER 19Aug - Patient deemed safe for HBOT today. VS stable. FSBS within range. Patient completed full session with no problem. Antoinette Lau INSIDE WIRER 2015Aug - Patient cleared for HBOT today. [...] andcompleted full session free of problem. [facility] [place] 29Aug - Cleared [...] session with no problem. Antoinette Lua APRN 16Sep - Patient cleared for HBOT [...] no problem. Antoinette Lau APRN Not available 06/18/2025 13:18:28 Reason for Referral None Reported. Problems Name Problem SNOMED Code Status Onset Date Resolution Date Notes Provider Name and Address Organization Details Recorded Time Upper respiratory infection 10019370 Active 2024 COLEMAN LAU NP null, [place] - [facility] 12:18:40 Episodic migraine 2970988743880 Active 2024 COLEMAN LAU NP null, [place] - [facility] 12:34:01 Type 2 diabetes mellitus 84322456 Active 2024 COLEMAN LAU NP null, [place] - [facility] 15:27:12 Refractory migraine with aura 346833363 Active 2024 COLEMAN LAU NP DOLORES servin - [facility] 10:56:52 Problem Notes [...] LAU NP [place] - [facility] 06/30/2025 13:46:12 06/29/20 25 [facility] Therapy Treatment Form completed Carolyn BERNAL - [facility] 06/29/2025 13:24:58 06/26/20 25 [facility] Therapy Treatment Form completed Manfred Shelton MD [place] - [facility] 06/26/2025 16:57:55 06/25/20 [facility] Therapy Treatment Form completed Carolyn luan BERNAL - [facility] 06/25/2025 12:47:07 06/24/20 25 [facility] Therapy Treatment Form completed Carolyn luan BERNAL - [facility] 06/24/2025 12:40:20 06/23/20 25 [facility] Therapy Treatment Form completed Carolyn luan BERNAL - [facility] 06/23/2025 12:39:50 06/22/20 25 [facility] Therapy Treatment Form completed Carolyn luan BERNAL - [facility] 06/22/2025 12:49:55 06/19/20 25 [facility] Therapy Treatment Form completed Manfred Shelton MD [place] - [facility] 06/19/2025 14:13:24 06/18/20 25 [facility] Therapy Treatment Form completed COLEMAN LAU NP [place] - [facility] 06/18/2025 13:17:34 06/17/20 25 [facility] Therapy Treatment Form completed [facility] - [facility] 06/17/2025 12:29:15 06/16/20 25 [facility] Therapy Treatment Form completed [facility] - [facility] 06/16/2025 12:45:53 06/15/20 25 [facility] Therapy Treatment Form completed [facility] - [facility] 06/15/2025 12:47:07 06/12/20 25 [facility] Therapy Treatment Form completed Manfred Shelton MD [place] - [facility] 06/12/2025 14:54:52 06/11/20 25 [facility] Therapy Treatment Form completed [facility] - [facility] 06/11/2025 13:02:39 06/10/20 25 [facility] Therapy Treatment Form completed [facility] - [facility] 06/10/2025 12:50:18 06/08/20 25 [facility] Therapy Treatment Form completed [facility] - [facility] 06/08/2025 12:56:07 06/05/20 25 [facility] Therapy Treatment Form completed Eveliapatricia Winters [place] - [facility] 06/05/2025 14:28:16 06/04/20 25 Wound completed COLEMAN LAU NP [place] - [facility] 06/04/2025 14:24:29 06/04/20 25 [facility] Therapy Treatment Form completed COLEMAN LAU NP [place] - [facility] 06/04/2025 13:56:49 06/03/20 25 [facility] Therapy Treatment Form completed Eveliashaggy Winters [place] - [facility] 06/03/2025 14:11:11 06/02/20 25 [facility] Therapy Treatment Form completed [facility] - [facility] 06/02/2025 13:09:37 05/29/20 25 [facility] Therapy Treatment Form completed [facility] - [facility] 05/29/2025 12:25:31 05/28/20 25 [facility] Therapy Treatment Form completed [facility] - [facility] 05/28/2025 13:02:44 05/27/20 25 Wound completed COLEMAN LAU NP [place] - [facility] 05/27/2025 13:18:22 05/27/20 25 [facility] Therapy Treatment Form completed [facility] - [facility] 05/27/2025 12:50:01 05/26/20 25 Nurse Note completed Luciana Gonzalesell [place] [facility] 05/26/2025 [...] [place] [facility] 05/11/2025 14:12:30 08/08/20 25 Wound completed COLEMAN LAU NP [place] [...] available Not available 04/23/2025 5640 RxNorm Luciana servin [place] - [facility] 14:25:04 1102 Rocephin medicatio n Not available Not available Not available 04/23/2025 9449 RxNorm Luciana servin, [place] - [facility] 14:25:10 1103 Inapsine medicatio n Not available Not available Not available 04/23/2025 72373 3 RxNorm Luciana servin, [place] - [facility] 14:25:27 1104 Avelox medicatio n Not available Not available Not available 04/23/2025 88551 6 RxNorm Luciana servin, [place] - [facility] 5 14:25:52 1105 metformin medicatio n other Not available low 04/23/20252023 6809 RxNorm GI issue s Luciana servin, [place] - [facility] 14:26:11 1253 Product containin g angiotens in-conver ting enzyme inhibitor (product) medicatio n cough moderate Not available 06/26/2025 12947 009 SNOMED Not Available [employer] - External [employer] - prod 10:54:20 1254 metformin hydrochlo ride medicatio n Not available Not available Not available 06/26/2025 17266 3 RxNorm Not Available [employer] Data Service - prod 10:54:20 Medications Name [...] Updated DateTime 5 82 /min 16 /min 97.7 [degF] 84 % 84 % 74 /min 16 /min 98.2 [degF] 96 % 96 % 165/76 mm[Hg] 157/78 mm[Hg] [facility] - [facility] 12:54:55 Social History None recorded. Functional Status None [...] MD Main Office [address] [place] [address] 05/18/2025 10:59:56 05/18/2025 15:48:37 Type 2 diabetes mellitus 95576132 E11.69 [id number] [id number] Manfred Shelton MD Main Office [address] [place] [address] 05/19/2025 11:07:27 05/19/2025 14:52:31 [id number] Manfred Shelton MD Main Office [address] [place] [address] 05/20/2025 11:36:16 05/20/2025 13:20:26 [id number] Manfred Shelton MD Main Office [address] [place] [address] 05/20/2025 12:28:38 05/20/2025 13:24:07 [id number] Manfred hSelton MD Main Office [address] [place] [address] 05/21/2025 10:14:02 05/22/2025 08:40:53 [id number] Manfred Shelton MD Main Office [address] [place] [address] 05/22/2025 10:05:00 05/22/2025 14:31:52 [id number] COLEMAN HOPKINSWOOD, SHIP OFFICER Main Office [address] [place] [address] 05/25/2025 10:54:17 05/25/2025 14:23:41 5071 COLEMAN JASBIR, SHIP OFFICER Main Office [address] [place] [address] 05/26/2025 10:04:52 05/26/2025 13:22:24 5083 COLEMAN JASBIR, SHIP OFFICER Main Office [address] [place] [address] 05/26/2025 16:38:48 05/26/2025 16:40:45 [id number] COLEMAN HOPKINSWOOD, SHIP OFFICER Main Office [address] [place] [address] 05/27/2025 10:11:43 05/27/2025 13:22:20 5093 COLEMAN HOPKINSWOOD, SHIP OFFICER Main Office [address] [place] [address] 05/27/2025 13:11:38 05/27/2025 13:19:10 [id number] Manfred Shelton MD Main Office [address] [place] [address] 05/28/2025 10:14:13 05/29/2025 08:47:13 [id number] Manfred Shelton MD Main Office [address] [place] [address] 05/29/2025 10:04:58 05/29/2025 17:43:48 [id number] Manfred Shelton MD Main Office [address] [place] [address] 06/02/2025 10:25:50 06/02/2025 14:14:27 [id number] Manfred Shelton MD Main Office [address] [place] [address] 06/03/2025 10:16:52 06/03/2025 14:45:20 [id number] Manfred Shelton MD Main Office [address] [place] [address] 06/04/2025 10:31:23 06/04/2025 13:58:07 [id number] Manfred Shelton MD Main Office [address] [place] [address] 06/04/2025 14:13:52 06/04/2025 14:25:08 [id number] Manfred Shelton MD Main Office [address] [place] [address] 06/05/2025 10:55:07 06/05/2025 16:50:44 5202 Manfred Shelton MD Main Office [address] [place] [address] 06/08/2025 10:25:37 06/08/2025 14:39:12 [id number] Manfred Shelton MD Main Office [address] [place] [address] 06/10/2025 10:19:13 06/10/2025 13:21:20 [id number] Manfred Shelton MD Main Office [address] [place] [address] 06/11/2025 10:35:04 06/11/2025 14:11:07 [id number] Manfred Shelton MD Main Office [address] [place] [address] 06/12/2025 10:59:45 06/12/2025 14:56:49 [id number] Manfred Shelton MD Main Office [address] [place] [address] 06/15/2025 10:50:33 06/15/2025 13:14:21 [id number] Manfred Shelton MD Main Office [address] [place] [address] 06/16/2025 10:14:56 06/16/2025 13:52:36 [id number] Manfred Shelton MD Main Office [address] [place] [address] 06/17/2025 10:28:52 06/17/2025 13:18:56 [id number] Manfred Shelton MD Main Office [address] [place] [address] 06/18/2025 10:16:09 06/18/2025 13:16:04 Health Concerns Section Related Observation LastModified by Organization Detai ls LastModified Time None Recorded Concern Status LastModified by Organization Details LastModified Time None Recorded Payers Encounter Date Sequence Insurance Name Policy Number Policy Gonzales Covered Member ID Gonzales Member ID Guarantor Name 06/18/2025 2 [employer] Seema Delacruz [id number] Seema Delacruz 06/18/2025 1 [employer] Seema Delacruz [id number] Seema Delacruz OBGyn Episode No OBEpisode recorded.
--- OUTSIDE RECORDS SUMMARY | 2025-07-06 16:11 | XMS_ITS | Continuity of Care Document ---
Author Organization [place] - [facility], Main Office Address [address] [place] [address] Care Team Providers Care Check Scaler Name Role Phone STEPHY YUSUF Primary Care [...] Modified By Organization Details Last Modified Time 05/14/2025 8317 BACKGROUND: Seema Delacruz is a 55 y.o. [...] E11.621 ___ ___ Session Notes: Today's Date [id number] HBOT session 11 of 40 Next HBOT [id number] 30Jul - Patient cleared for 1st HBOT [...] her wear ear plugs during treatment. Nicolasa DRAMATIC CRITIC 31July - Patient cleared for HBOT today. [...] slightly red, but she was asymptomatic. [place].Tanner DRAMATIC CRITIC 01Aug - Patient deemed safe for HBOT today. VS stable. Patient completed full session with no problem. [place].Jessica Lau DRAMATIC CRITIC 04Aug - Patient deemed safe for HBOT today. VS stable. Patient completed full session with no problem. Antoinette Lau DRAMATIC CRITIC 05Aug - patient out for another appt. [...] antibiotics for an upper respiratory infection. Nicolasa DRAMATIC CRITIC 07Aug- Patient cleared for HBOT today. VS stable. PAtient had little trouble reaching pressure today, but had to come out of chamber early due to needing to use restroom. She managed to do 4 segs-118 minutes. Nicolasa DRAMATIC CRITIC 08Aug - Patient cleared for HBOT today. VS stable. Patient completed full session with no problem. Antoinette Lau DRAMATIC CRITIC 11Aug - Patient cleared for HBOT today. [...] bit higher on a daily basis. Nicolasa DRAMATIC CRITIC 12Aug - Patient cleared for HBOT today. VS stable. Patient completed full session with no problem. Antoinette Lau DRAMATIC CRITIC 13Aug - Patient cleared for HBOT today. VS stable. Patient completed full session with no problem. Wound care to follow treatment today. Antoinette Lau DRAMATIC CRITIC 14Aug - Patient cleared for HBOT today. VS stable. Patient completed full session with no problem. Antoinette Lau DRAMATIC CRITIC Not available 05/14/2025 16:00:44 Reason for Referral None Reported. Problems Name Problem SNOMED Code Status Onset Date Resolution Date Notes Provider Name and Address Organization Details Recorded Time Upper respiratory infection 59360898 Active 2024 COLEMAN LAU NP null, [place] - [facility] 12:18:40 Episodic migraine 7973399719824 Active 2024 COLEMAN LAU NP null, [place] - [facility] 5 12:34:01 Type 2 diabetes mellitus 45627911 Active 2024 COLEMAN LAU NP null, [place] - [facility] 15:27:12 Refractory migraine with aura 785661685 Active 2024 COLEMAN LAU NP null, [place] - [facility] 10:56:52 Problem Notes None recorded. Procedures Surgical History Date Name Laterality Status Provider Name and Address Organization Details Recorded Time 07/06/20 [facility] Therapy Treatment Form completed Carolyn roland [place] - [facility] 07/06/2025 13:06:29 07/03/20 25 [facility] Therapy Treatment Form completed Puala Licea [place] - [facility] 07/03/2025 12:47:29 07/02/20 25 [facility] Therapy Treatment Form completed Paula Licea [place] - [facility] 07/02/2025 13:06:39 07/01/20 25 [facility] Therapy Treatment Form completed Paula Licea [place] - [facility] 07/01/2025 13:05:37 06/30/20 25 [facility] Therapy Treatment Form completed COLEMAN LAU NP [place] - [facility] 06/30/2025 13:46:12 06/29/20 25 [facility] Therapy Treatment Form completed [facility] - [facility] 06/29/2025 13:24:58 06/26/20 25 [facility] Therapy Treatment Form completed Manfred Shelton MD [place] - [facility] 06/26/2025 16:57:55 06/25/20 25 [facility] Therapy Treatment Form completed [facility] - [facility] 06/25/2025 12:47:07 06/24/20 25 [facility] Therapy Treatment Form completed [facility] 06/24/2025 12:40:20 06/23/20 25 [facility] Therapy Treatment Form completed [facility] - [facility] 06/23/2025 12:39:50 06/22/20 25 [facility] Therapy Treatment Form completed [facility] - [facility] 06/22/2025 12:49:55 06/19/20 25 [facility] Therapy Treatment Form completed MD DOLORES [place] - [facility] 06/19/2025 14:13:24 06/18/20 25 [facility] Therapy Treatment Form completed COLEMAN LAU NP [place] - [facility] 06/18/2025 13:17:34 06/17/20 25 [facility] Therapy Treatment Form completed [facility] - [facility] 06/17/2025 12:29:15 06/16/20 25 [facility] Therapy Treatment Form completed [facility] [place] - [facility] 06/16/2025 12:45:53 06/15/20 25 [facility] Therapy Treatment Form completed [facility] - [facility] 06/15/2025 12:47:07 06/12/20 25 [facility] Therapy Treatment Form completed Manfred Shelton MD [place] - [facility] 06/12/2025 14:54:52 06/11/20 25 [facility] Therapy Treatment Form completed [facility] - [facility] 06/11/2025 13:02:39 06/10/20 25 [facility] Therapy Treatment Form completed [facility] [place] - [facility] 06/10/2025 12:50:18 06/08/20 25 [facility] Therapy Treatment Form completed [facility] - [facility] 06/08/2025 12:56:07 06/05/20 25 [facility] Therapy Treatment Form completed Evelia Winters [place] - [facility] 06/05/2025 14:28:16 06/04/20 [...] Care Therapy Treatment Form completed Carolyn luan [place] - [facility] 06/02/2025 13:09:37 05/29/20 25 [facility] Therapy Treatment Form completed [facility] - [facility] 05/29/2025 12:25:31 05/28/20 25 [facility] Therapy Treatment Form completed [facility] - [facility] 05/28/2025 13:02:44 05/27/20 25 Wound completed COLMEAN LAU NP [place] - [facility] 05/27/2025 13:18:22 05/27/20 25 [facility] Therapy Treatment Form completed [facility] - [facility] 05/27/2025 [...] 05/07/2025 13:01:51 05/06/20 25 Wound completed COLEMAN HOPKINSABDOULAYE EMERSON [place] - [facility] 05/07/2025 08:29:18 05/06/20 25 [facility] Therapy Treatment Form completed Mary Miarnda [place] - [facility] 05/06/2025 12:30:26 05/04/20 25 [facility] Therapy Treatment Form completed Carolyn roland [place] - [facility] 05/04/2025 12:48:46 05/01/20 25 [facility] Therapy Treatment Form completed Mary Miranda [place] - [facility] 05/01/2025 12:20:36 04/30/20 25 [facility] Therapy Treatment Form completed COLEMAN JASBIR, NP [place] - [facility] 04/30/2025 [...] n Not available Not available Not available 04/23/202589124 3 RxNorm Luciana servin, [place] - [facility] 5 14:25:27 1104 Avelox medicatio n Not available Not available Not available 04/23/2025 62141 6 RxNorm Luciana servin, [place] - [facility] 5 14:25:52 1105 metformin medicatio n other Not available low 04/23/20252023 6809 RxNorm GI issue s Luciana servin, [place] - [facility] 14:26:11 1253 Product containin g angiotens in-conver ting enzyme inhibitor (product) medicatio n cough moderate Not available 06/26/2025 08370 009 SNOMED Not Available [employer] - External Data Service - prod 10:54:20 1254 metformin hydrochlo ride medicatio n Not available Not available Not available 06/26/2025 29720 3 RxNorm Not Available [employer] External Data Service - prod 10:54:20 Medications [...] Updated DateTime 5 77 /min 16 /min 97.9 [degF] 94 % 94 % 16 /min 73 /min 97.3 [degF] 93 % 93 % 148/73 mm[Hg] 134/72 mm[Hg] Mary Miranda [place] - [facility] 13:46:48 Social History None recorded. Functional Status None [...] MD Main Office [address] [place] [address] 04/23/2025 14:15:51 04/24/2025 12:51:54 [id number] Manfred Shelton MD Main Office [address] [place] [address] 04/29/2025 10:50:02 04/29/2025 15:41:17 4702 Manfred Shelton MD Main Office [address] [place] [address] 04/30/2025 11:16:06 04/30/2025 14:19:33 4714 Manfred Shelton MD Main Office [address] [place] [address] 05/01/2025 10:18:55 05/01/2025 13:10:41 4729 Manfred Shelton MD Main Office [address] [place] [address] 05/04/2025 10:46:48 05/04/2025 14:18:05 4767 Manfred Shelton MD Main Office [address] [address] 05/06/2025 10:55:59 05/06/2025 11:32:38 [id number] Manfred Shelton MD Main Office [address] [place] [address] 05/06/2025 13:04:28 05/07/2025 08:30:09 4788 Manfred Shelton MD Main Office [address] [place] [address] 05/07/2025 10:45:55 05/08/2025 10:40:32 [id number] Manfred Shelton MD Main Office [address] [place] [address] 05/08/2025 10:55:11 05/08/2025 14:31:10 [id number] Manfred Shelton MD Main Office [address] [place] [address] 05/08/2025 13:08:42 05/08/2025 14:13:22 4821 Manfred Shelton MD Main Office [address] [place] [address] 05/11/2025 10:59:55 05/11/2025 14:43:45 Type 2 diabetes mellitus 76701768 E11.69 [id number] Manfred Shelton MD Main Office [address] [place] [address] 05/12/2025 10:58:25 05/12/2025 16:06:58 [id number] Manfred Shelton MD Main Office [address] [place] [address] 05/13/2025 10:26:11 05/13/2025 14:22:52 Type 2 diabetes mellitus 57098761 E11.69 [id number] Manfred Shelton MD Main Office [address] [place] [address] 05/13/2025 13:16:44 05/13/2025 14:39:17 [id number] Manfred Shelton MD Main Office [address] [place] [address] 05/14/2025 10:20:17 05/14/2025 16:02:14 Health Concerns Section Related Observation LastModified by Organization Detai ls LastModified Time None Recorded Concern Status LastModified by Organization Details LastModified Time None Recorded Payers Encounter Date Sequence Insurance Name Policy Number Policy Gonzales Covered Member ID Gonzales Member ID Guarantor Name 05/14/2025 2 [employer] [facility] Seema Delacruz [id number] Seema Delacruz 05/14/2025 1 [employer] Seema Delacruz [id number] Seema Delacruz OBGyn Episode No OBEpisode recorded.
--- OUTSIDE RECORDS SUMMARY | 2025-07-06 16:11 | XMS_ITS | Continuity of Care Document ---
Author Organization [place] - [facility], Main Office Address [address] [place] [address] Care Team Providers Care Appellate Court Judge Name Role Phone STEPHY YUSUF Primary Care [...] Modified By Organization Details Last Modified Time 05/29/2025 [id number] BACKGROUND: Seema Delacruz is a 55 y.o. [...] Diagnosis: L97.512, E11.621 Session Notes: Today's Date 29May2025 HBOT session 40 Next HBOT [id number] 30Jul - Patient cleared for 1st HBOT [...] full session with no problem. [place].Jessica Lau LAWN CARE SPECIALIST 04Aug - Patient deemed safe for HBOT today. VS stable. Patient completed full session with no problem. Antoinette Lau LAWN CARE SPECIALIST 05Aug - patient out for another appt. [...] antibiotics for an upper respiratory infection. Nicolasa LAWN CARE SPECIALIST 07Aug- Patient cleared for HBOT today. VS stable. PAtient had little trouble reaching pressure today, but had to come out of chamber early due to needing to use restroom. She managed to do 4 segs-118 minutes. [place].Tanner LAWN CARE SPECIALIST 08Aug - Patient cleared for HBOT today. VS stable. Patient completed full session with no problem. Antoinette Lau LAWN CARE SPECIALIST 11Aug - Patient cleared for HBOT [...] full session with no problem. Antoinette Lau LAWN CARE SPECIALIST 13Aug - Patient cleared for HBOT today. VS stable. Patient completed full session with no problem. Wound care to follow treatment today. Antoinette Lau LAWN CARE SPECIALIST 14Aug - Patient cleared for HBOT today. VS stable. Patient completed full session with no problem. Antoinette Lau LAWN CARE SPECIALIST 15Aug - Patient cleared for HBOT [...] attempt to try again on Sunday. Nicolasa LAWN CARE SPECIALIST 18Aug - Patient cleared for HBOT today. VS stable. Patient completed full session with no problem. Antoinette Lau LAWN CARE SPECIALIST 19Aug - Patient deemed safe for HBOT today. VS stable. FSBS within range. Patient completed full session with no problem. Antoinette Lau LAWN CARE SPECIALIST 2015Aug - Patient cleared for HBOT today. VS stable. Soon after reaching pressure, patient states that she is having anxiety, and wants to come out of chamber. We tried turning down pressure, and giving an air break, but she still insist on coming out. We brought her out, VS stable, wound care done. Nicolasa LAWN CARE SPECIALIST 21Aug - Patient deemed safe for HBOT today. VS stable. FSBS within range. Patient completed full session with no problem. Patient better tolerated treatment today in larger chamber with no reports of anxiety during treatment. Antoinette Lau APRN 22Aug - Cleared for HBOT this date and did complete full session with no problem including no significant anxiety. Dressing change today per nursing. Estefania WATERS 25Aug - Patient deemed safe for HBOT today. VS stable. Patient completed full session with no problem. Antoinette Lau APRN 26Aug - Patient cleared for HBOT today. VS stable. Patient completed full session with no problem. I spoke with patient, and she feels much better in the larger chamber, having almost no anxiety at all now. Antoinette Lau LAWN CARE SPECIALIST 27Aug - Patient deemed safe for HBOT today. VS stable. FSBS within range. Patient completed full session with no problem. Antoinette Lau APRN 28Aug - Found safe for HBOT this date andcompleted full session free of problem. [facility] 29Aug - Cleared for HBOT his date and completed full session free of problem. Of note, this patient continues to smoke tobacco cigarettes. [facility] [email or web address] Not available 05/29/2025 17:43:42 Reason for Referral None Reported. Problems Name Problem SNOMED Code Status Onset Date Resolution Date Notes Provider Name and Address Organization Details Recorded Time Upper respiratory infection 69547635 Active 2024 COLEMAN LAU NP null, [place] - [facility] 12:18:40 Episodic migraine [id number] Active 2024 COLEMAN LAU NP null, [place] - [facility] 12:34:01 Type 2 diabetes mellitus 59341696 Active 2024 COLEMAN LAU NP null, [place] - [facility] 15:27:12 Refractory migraine with aura 416346624 Active 2024 ABDOULAYE HAQ [place] - [facility] 10:56:52 Problem [...] completed Carolyn BERNAL - [facility] 06/25/2025 12:47:07 06/24/20 25 [facility] Therapy Treatment Form completed Carolyn BERNAL - [facility] 06/24/2025 12:40:20 06/23/20 25 [facility] Therapy Treatment Form completed Carolyn luan BERNAL - [facility] 06/23/2025 12:39:50 06/22/20 25 [facility] Therapy Treatment Form completed Carolyn luan BERANL - [facility] 06/22/2025 12:49:55 06/19/20 [...] Care Therapy Treatment Form completed [facility] [place] - [facility] 06/16/2025 12:45:53 06/15/20 25 [facility] Therapy Treatment Form completed [facility] - [facility] 06/15/2025 12:47:07 06/12/20 25 [facility] Therapy Treatment Form completed Manfred Shelton MD [place] - [facility] 06/12/2025 14:54:52 06/11/20 25 [facility] Therapy Treatment Form completed [facility] - [facility] 06/11/2025 13:02:39 06/10/20 25 [facility] Therapy Treatment Form completed [facility] - [facility] 06/10/2025 12:50:18 06/08/20 25 [facility] Therapy Treatment Form completed [facility] - [facility] 06/08/2025 12:56:07 06/05/20 25 [facility] Therapy Treatment Form completed Eveliashaggy Winters [place] - [facility] 06/05/2025 [...] Carolyn luan [place] - [facility] 06/02/2025 13:09:37 05/29/20 25 [facility] Therapy Treatment Form completed [facility] [place] - [facility] 05/29/2025 12:25:31 05/28/20 25 [facility] Therapy Treatment Form completed [facility] - [facility] 05/28/2025 13:02:44 05/27/20 25 Wound completed COLEMAN LAU NP [place] - [facility] 05/27/2025 13:18:22 05/27/20 25 [facility] Therapy Treatment Form completed [facility] - [facility] 05/27/2025 12:50:01 [...] Oxygen Care Therapy Treatment Form completed Moraima Johsnons [place] - [facility] 05/11/2025 14:12:30 [...] RxNorm [place] - [facility] 07/24/202 5 14:25:10 1103 Inapsine medicatio n Not available Not available Not available 04/23/2025 61916 3 RxNorm Luciana servin, [place] - [facility] 5 14:25:27 1104 Avelox medicatio n Not available Not available Not available 04/23/2025 59358 6 RxNorm Luciana servin, [place] - [facility] 5 14:25:52 1105 metformin medicatio n other Not available [facility] 04/23/20252023 6809 RxNorm GI issue s Luciana servin, [place] - [facility] 14:26:11 1253 Product containin g angiotens in-conver ting enzyme inhibitor (product) medicatio n cough moderate Not available 06/26/2025 56407 009 SNOMED Not Available [employer] - External Data Service - prod 10:54:20 1254 metformin hydrochlo ride medicatio n Not available Not available Not available 06/26/2025 40489 3 RxNorm Not Available [employer] External Data Service - prod 10:54:20 Medications [...] % 90 % 154/69 mm[Hg] 128/73 mm[Hg] [facility] - [facility] 12:25:45 Social History None recorded. Functional Status None recorded. Mental Status None recorded. Family History Nothing Reported. Medical History Condition Response Coronary Artery Disease N Gout N Blood Diseases N Hyperthyroidism N Breast Cancer N Lung Disease N Hypothyroidism Y Depression Y COPD Y Developmental or Behavioral Disorders N Anxiety [...] Diverticulitis N Asthma N Heart Disease N Hypertension Y Chronic Ear Infections N Osteoporosis N Gynecological HistoryNo gynecological history recorded. Obstetrics History GPAL:G 0 P 0 0 0 0 Past Encounters Encounter ID Performer Location Encounter Start Date Encounter Closed Date Diagnosis/Indication Diagnosis SNOMED-CT Code Diagnosis ICD10 Code Diagnosis IMO Codes Diagnosis Note [id number] Manfred Shelton MD Main Office [address] [address] 04/29/2025 10:50:02 04/29/2025 15:41:17 [id number] Manfred Shelton MD Main Office [address] [id number] 04/30/2025 11:16:06 04/30/2025 14:19:33 [id number] Manfred Shelton MD Main Office [address] [address] 05/01/2025 10:18:55 05/01/2025 13:10:41 [id number] Manfred Shelton MD Main Office [address] [id number] 05/04/2025 10:46:48 05/04/2025 14:18:05 [id number] Manfred Shelton MD Main Office [address] [id number] 05/06/2025 10:55:59 05/06/2025 11:32:38 [id number] Manfred Shelton MD Main Office [address] [address] 05/06/2025 13:04:28 05/07/2025 08:30:09 [id number] Manfred Shelton MD Main Office [address] [place] , [place] [id number] 05/07/2025 10:45:55 05/08/2025 10:40:32 [id number] Manfred Shelton MD Main Office [address] [place] [id number] 05/08/2025 10:55:11 05/08/2025 14:31:10 [id number] Manfred Shelton MD Main Office [address] [place] , [place] [id number] 05/08/2025 13:08:42 05/08/2025 14:13:22 [id number] Manfred Shelton MD Main Office [address] [place] , [place] [id number] 05/11/2025 10:59:55 05/11/2025 14:43:45 Type 2 diabetes mellitus 92890483 E11.69 [id number] Manfred Shelton MD Main Office [address] [place] [id number] 05/12/2025 10:58:25 05/12/2025 16:06:58 [id number] Manfred Shelton MD Main Office [address] [place] [id number] 05/13/2025 10:26:11 05/13/2025 14:22:52 Type 2 diabetes mellitus 81972659 E11.69 [id number] Manfred Shelton MD Main Office [address] [place] , [place] [address] 05/13/2025 13:16:44 05/13/2025 14:39:17 [id number] Manfred Shelton MD Main Office [address] [place] , [place] [id number] 05/14/2025 10:20:17 05/14/2025 16:02:14 [id number] Manfred Shelton MD Main Office [address] [place] , [place] [id number] 05/15/2025 10:48:13 05/18/2025 08:48:44 [id number] Manfred Shelton MD Main Office [address] [place] , [place] [id number] 05/18/2025 10:59:56 05/18/2025 15:48:37 Type 2 diabetes mellitus 92519598 E11.69 [id number] Manfred Shelton MD Main Office [address] [place] , [place] [id number] 05/19/2025 11:07:27 05/19/2025 14:52:31 [id number] Manfred Shelton MD Main Office [address] [place] , [place] [id number] 05/20/2025 11:36:16 05/20/2025 13:20:26 [id number] Manfred Shelton MD Main Office [address] [place] , [place] [id number] 05/20/2025 12:28:38 05/20/2025 13:24:07 [id number] Manfred Shelton MD Main Office [address] [place] , [place] [id number] 05/21/2025 10:14:02 05/22/2025 08:40:53 [id number] Manfred Shelton MD Main Office [address] [place] , [place] [id number] 05/22/2025 10:05:00 05/22/2025 14:31:52 [id number] COLEMAN LAU, HOSPICE/HOME HEALTH AIDE Main Office [address] [place] , [place] [id number] 05/25/2025 10:54:17 05/25/2025 14:23:41 [id number] COLEMAN LAU, HOSPICE/HOME HEALTH AIDE Main Office [address] [place] , [place] [id number] 05/26/2025 10:04:52 05/26/2025 13:22:24 [id number] COLEMAN LAU, HOSPICE/HOME HEALTH AIDE Main Office [address] [place] , [place] [id number] 05/26/2025 16:38:48 05/26/2025 16:40:45 [id number] COLEMAN LAU HOSPICE/HOME HEALTH AIDE Main Office [address] [place] , [place] [id number] 05/27/2025 10:11:43 05/27/2025 13:22:20 [id number] COLEMAN LAU NP Main Office [address] [place] [id number] 05/27/2025 13:11:38 05/27/2025 13:19:10 [id number] Manfred Shelton MD Main Office [address] [place] [id number] 05/28/2025 10:14:13 05/29/2025 08:47:13 [id number] Manfred Shelton MD Main Office [address] [place] [id number] 05/29/2025 10:04:58 05/29/2025 17:43:48 Health Concerns Section Related Observation LastModified by Organization Detai ls LastModified Time None Recorded Concern Status LastModified by Organization Details LastModified Time None Recorded Payers Encounter Date Sequence Insurance Name Policy Number Policy Gonzales Covered Member ID Gonzales Member ID Guarantor Name 05/29/2025 2 [employer] Seema Delacruz [id number] Seema Delacruz 05/29/2025 1 [employer] Seema Delacruz [id number] Seema Delacruz OBGyn Episode No OBEpisode recorded.
--- OUTSIDE RECORDS SUMMARY | 2025-07-06 16:12 | XMS_ITS | Referral Summary ---
Author Organization [facility] ([place], [place], [place], [place]) Address [address] [place] [id number] Care Team Providers Care Pipe Fitter Marine Name Role Phone Unavailable Primary Care Provider [...]
--- OUTSIDE RECORDS SUMMARY | 2025-07-06 16:12 | XMS_ITS | Continuity of Care Document ---
Author Organization [place] [facility], Main Office Address [address] [place] [address] Care Team Providers Care Communications Marketing Intern Name Role Phone STEPHY YUSUF Primary [...] Modified By Organization Details Last Modified Time 05/25/2025 6738 BACKGROUND: Seema Delacruz is a 55 y.o. [...] E11.621 ___ ___ Session Notes: Today's Date [id number] HBOT session 18 of 40 Next HBOT [id number] 30Jul - Patient cleared for 1st HBOT [...] her wear ear plugs during treatment. Nicolasa [employer] 31July - Patient cleared for HBOT today. [...] slightly red, but she was asymptomatic. [place].Tanner TRI[employer]ICE 01Aug - Patient deemed safe for HBOT today. VS stable. Patient completed full session with no problem. [place].Jessica Lau TRIAL JUSTICE 04Aug - Patient deemed safe for HBOT today. VS stable. Patient completed full session with no problem. Antoinette Lau TRIAL [employer]ICE 05Aug - patient out for another appt. [...] antibiotics for an upper respiratory infection. Nicolasa [employer]ICE 07Aug- Patient cleared for HBOT today. VS stable. PAtient had little trouble reaching pressure today, but had to come out of chamber early due to needing to use restroom. She managed to do 4 segs-118 minutes. [place].Tanner TRI[employer]ICE 08Aug - Patient cleared for HBOT today. VS stable. Patient completed full session with no problem. Antoinette Lua TRI[employer]ICE 11Aug - Patient cleared for HBOT today. [...] full session with no problem. Antoinette Lau TRIAL [employer]ICE 13Aug - Patient cleared for HBOT today. VS stable. Patient completed full session with no problem. Wound care to follow treatment today. Antoinette Lau [employer]ICE 14Aug - Patient cleared for HBOT today. VS stable. Patient completed full session with no problem. Antoinette Lau TRIAL [employer]ICE 15Aug - Patient cleared for HBOT today. [...] attempt to try again on Sunday. Nicolasa [employer]ICE 18Aug - Patient cleared for HBOT today. VS stable. Patient completed full session with no problem. Antoinette Lau TRIAL [employer]ICE 19Aug - Patient deemed safe for HBOT today. VS stable. FSBS within range. Patient completed full session with no problem. Antointete Lau TRIAL JUSTICE 2015Aug - Patient cleared for HBOT today. VS stable. Soon after reaching pressure, patient states that she is having anxiety, and wants to come out of chamber. We tried turning down pressure, and giving an air break, but she still insist on coming out. We brought her out, VS stable, wound care done. AntoinetteJudi TRIAL JUSTICE 21Aug - Patient deemed safe for HBOT today. VS stable. FSBS within range. Patient completed full session with no problem. Patient better tolerated treatment today in larger chamber with no reports of anxiety during treatment. CompaDeepali Lau TRIAL [employer]ICE 22Aug - Cleared for HBOT this date and did complete full session with no problem including no significant anxiety. Dressing change today per nursing. [facility] 25Aug - Patient deemed safe for HBOT today. VS stable. Patient completed full session with no problem. IsraelDeepaliMonicaDeepali Lau APRN Not available 05/25/2025 14:22:31 Reason for Referral None Reported. Problems Name Problem SNOMED Code Status Onset Date Resolution Date Notes Provider Name and Address Organization Details Recorded Time Upper respiratory infection 96514686 Active 2024 COLEMAN LAU NP null, [place] - [facility] 12:18:40 Episodic migraine 1028158250868 Active 2024 COLEMAN LAU NP null, [place] - [facility] 12:34:01 Type 2 diabetes mellitus 45274208 Active 2024 COLEMAN LAU NP null, [place] - [facility] 15:27:12 Refractory migraine with aura 143789784 Active 2024 COLEMAN LAU NP null, [place] [...] Care Therapy Treatment Form completed [facility] - [facility] 06/29/2025 13:24:58 06/26/20 25 [facility] Therapy Treatment Form completed Manfred Shelton MD [place] - [facility] 06/26/2025 16:57:55 06/25/20 25 [facility] Therapy Treatment Form completed [facility] - [facility] 06/25/2025 12:47:07 06/24/20 25 [facility] Therapy Treatment Form completed [facility] 06/24/2025 12:40:20 06/23/20 25 [facility] Therapy Treatment Form completed [facility] 06/23/2025 12:39:50 06/22/20 25 [facility] Therapy Treatment Form completed [facility] - [facility] 06/22/2025 12:49:55 06/19/20 25 [facility] Therapy Treatment Form completed Manfred Shelton MD [place] - [facility] 06/19/2025 14:13:24 06/18/20 25 [facility] Therapy Treatment Form completed COLEMAN LAU NP [place] - [facility] 06/18/2025 13:17:34 06/17/20 25 [facility] Therapy Treatment Form completed [facility] - [facility] 06/17/2025 12:29:15 06/16/20 25 [facility] Therapy Treatment Form completed [facility] - [facility] 06/16/2025 12:45:53 06/15/20 25 [facility] Therapy Treatment Form completed [facility] - [facility] 06/15/2025 12:47:07 06/12/20 25 [facility] Therapy Treatment Form completed Manfred Shelton MD [place] [facility] 06/12/2025 14:54:52 06/11/20 25 [facility] Therapy Treatment Form completed [facility] 06/11/2025 13:02:39 06/10/20 25 [facility] Therapy Treatment Form completed Carolyn sharp [place] - [facility] 06/10/2025 12:50:18 06/08/20 25 [facility] Therapy Treatment Form completed Carolyn roland [place] - [facility] 06/08/2025 12:56:07 06/05/20 [...] Carolyn roland [place] - [facility] 06/02/2025 13:09:37 05/29/20 25 [facility] Therapy Treatment Form completed Carolyn luan [place] - [facility] 05/29/2025 12:25:31 05/28/20 25 [facility] Therapy Treatment Form completed [facility] - [facility] 05/28/2025 13:02:44 05/27/20 25 Wound completed COLEMAN LAU NP [place] - [facility] 05/27/2025 13:18:22 05/27/20 25 [facility] Therapy Treatment Form completed [facility] - [facility] 05/27/2025 12:50:01 05/26/20 25 Nurse Note completed Luciana Noriega [place] [facility] 05/26/2025 16:40:42 05/26/20 25 [facility] Therapy Treatment Form completed [facility] [place] - [facility] 05/26/2025 12:27:56 05/25/20 25 [facility] Therapy Treatment Form completed Carolyn luan [place] - [facility] 05/25/2025 13:12:32 05/22/20 25 [facility] Therapy Treatment Form completed [facility] - [facility] 05/22/2025 12:33:28 05/21/20 25 [facility] Therapy Treatment Form completed [facility] 05/21/2025 12:47:49 05/20/20 [...] Oxygen Care Therapy Treatment Form completed Mary Mrianda [place] - [facility] 05/01/2025 12:20:36 [...] 04/23/2025 14:33:07 amputation of toe completed Luciana Noirega [place] - [facility] 04/23/2025 14:33:26 [...] Not available Not available Not available 04/23/2025 89446 3 RxNorm Luciana servin, [place] - [facility] 14:25:27 1104 Avelox medicatio n Not available Not available Not available 04/23/2025 27295 6 RxNorm Luciana servin, [place] - [facility] 14:25:52 1105 metformin medicatio n other Not available low 04/23/20252023 6809 RxNorm GI issue s Luciana Noriega null, [place] - [facility] 14:26:11 1253 Product containin g angiotens in-conver ting enzyme inhibitor (product) medicatio n cough moderate Not available 06/26/2025 63243 009 SNOMED Not Available taisha - External Data Service - prod 10:54:20 1254 metformin hydrochlo ride medicatio n Not available Not available Not available 06/26/2025 42356 3 RxNorm Not Available taisha - External [...] % 95 % 157/79 mm[Hg] 137/75 mm[Hg] [facility] - [facility] 5 13:12:49 Social History None recorded. Functional Status None [...] Office [address] [place] [id number] 04/29/2025 10:50:02 04/29/2025 15:41:17 [id number] Manfred Shelton MD Main Office [address] [place] [id number] 04/30/2025 11:16:06 04/30/2025 14:19:33 [id number] Manfred Shelton MD Main Office [address] [place] [id number] 05/01/2025 10:18:55 05/01/2025 13:10:41 [id number] Manfred Shelton MD Main Office [address] [place] [id number] 05/04/2025 10:46:48 05/04/2025 14:18:05 [id number] Manfred Shelton MD Main Office [address] [place] [id number] 05/06/2025 10:55:59 05/06/2025 11:32:38 [id number] Manfred Shelton MD Main Office [address] [place] [id number] 05/06/2025 13:04:28 05/07/2025 08:30:09 [id number] Manfred Shelton MD Main Office [address] [place] , [place] [id number] 05/07/2025 10:45:55 05/08/2025 10:40:32 [id number] Manfred Shelton MD Main Office [address] [place] [id number] 05/08/2025 10:55:11 05/08/2025 14:31:10 [id number] Manfred Shelton MD Main Office [address] [place] [id number] 05/08/2025 13:08:42 05/08/2025 14:13:22 [id number] Manfred Shelton MD Main Office [address] [place] [id number] 05/11/2025 10:59:55 05/11/2025 14:43:45 Type 2 diabetes mellitus 84852206 E11.69 [id number] Manfred Shelton MD Main Office [address] [place] [id number] 05/12/2025 10:58:25 05/12/2025 16:06:58 [id number] Manfred Shelton MD Main Office [address] [place] [id number] 05/13/2025 10:26:11 05/13/2025 14:22:52 Type 2 diabetes mellitus 12125371 E11.69 [id number] Manfred Shelton MD Main Office [address] [place] [id number] 05/13/2025 13:16:44 05/13/2025 14:39:17 [id number] Manfred Shelton MD Main Office [address] [place] [id number] 05/14/2025 10:20:17 05/14/2025 16:02:14 [id number] Manfred Shelton MD Main Office [address] [place] [id number] 05/15/2025 10:48:13 05/18/2025 08:48:44 [id number] Manfred Shelton MD Main Office [address] [place] [id number] 05/18/2025 10:59:56 05/18/2025 15:48:37 Type 2 diabetes mellitus 86234995 E11.69 [id number] Manfred Shelton MD Main Office [address] [place] [id number] 05/19/2025 11:07:27 05/19/2025 14:52:31 [id number] Manfred Shelton MD Main Office [address] [place] [id number] 05/20/2025 11:36:16 05/20/2025 13:20:26 [id number] Manfred Shelton MD Main Office [address] [place] [id number] 05/20/2025 12:28:38 05/20/2025 13:24:07 [id number] Manfred Shelton MD Main Office [address] [place] [id number] 05/21/2025 10:14:02 05/22/2025 08:40:53 [id number] Manfred Shelton MD Main Office [address] [place] [id number] 05/22/2025 10:05:00 05/22/2025 14:31:52 [id number] COLEMAN LAU NP Main Office [address] [place] [id number] 05/25/2025 10:54:17 05/25/2025 14:23:41 Health Concerns Section Related Observation LastModified by Organization Detai ls LastModified Time None Recorded Concern Status LastModified by Organization Details LastModified Time None Recorded Payers Encounter Date Sequence Insurance Name Policy Number Policy Gonzales Covered Member ID Gonzales Member ID Guarantor Name 05/25/2025 2 [employer] Seema Delacruz [id number] Seema Delacruz 05/25/2025 1 [employer] Seema Delacruz [id number] Seema Delacruz OBGyn Episode No OBEpisode recorded.
--- OUTSIDE RECORDS SUMMARY | 2025-07-06 16:12 | XMS_ITS | Data Portability ---
Author Organization [place] - [facility], Main Office Address [address] [place] [address] Care Team Providers Care Cooker Meal Name Role Phone YUSUF KEYES Primary Care Provider [phone] Assessment No assessment recorded. Plan of Treatment [...] By Organization Details Last Modified Time 06/30/2025 [id number] BACKGROUND: Seema Delacruz is a 55 y.o. [...] Diagnosis: L97.512, E11.621 Session Notes: Today's Date [id number] HBOT session 41 of 60 Next HBOT [id number] 30Jul - Patient cleared for 1st HBOT [...] full session with no problem. Antoinette Lau OIL PROSPECTING OBSERVER 04Aug - Patient deemed safe for HBOT [...] antibiotics for an upper respiratory infection. Nicolasa OIL PROSPECTING OBSERVER 07Aug- Patient cleared for HBOT today. VS stable. PAtient had little trouble reaching pressure today, but had to come out of chamber early due to needing to use restroom. She managed to do 4 segs-118 minutes. [place].Tanner OIL PROSPECTING OBSERVER 08Aug - Patient cleared for HBOT today. VS stable. Patient completed full session with no problem. Anotinette Lau OIL PROSPECTING OBSERVER 11Aug - Patient cleared for HBOT today. [...] full session with no problem. Antoinette Lau OIL PROSPECTING OBSERVER 13Aug - Patient cleared for HBOT today. VS stable. Patient completed full session with no problem. Wound care to follow treatment today. Antoinette Lau OIL PROSPECTING OBSERVER 14Aug - Patient cleared for HBOT today. VS stable. Patient completed full session with no problem. Antoinette Lau OIL PROSPECTING OBSERVER 15Aug - Patient cleared for HBOT today. [...] attempt to try again on Sunday. Nicolasa OIL PROSPECTING OBSERVER 18Aug - Patient cleared for HBOT today. VS stable. Patient completed full session with no problem. Antoinette Lau OIL PROSPECTING OBSERVER 19Aug - Patient deemed safe for HBOT [...] out, VS stable, wound care done. Nicolasa SILVA 21Aug - Patient deemed safe for HBOT [...] date andcompleted full session free of problem. [facility] 29Aug - Cleared for HBOT his date [...] shortened to satisfy demand of ride provider. [facility] 15Sep - Patient cleared for HBOT today. [...] was to proceed to another medical appointment. [facility] 22Sep - Patient cleared for HBOT today. VS stable. Patient completed full session with no problem. Antoinette Lau APRN 23Sep - Patient cleared for HBOT today. VS stable. Patient completed full session with no problem. Antoinette Lau APRN 24Sep - Patient cleared for HBOT today. VS stable. Patient completed full session with no problem. Antoinette Lau APRN 25Sep - Patient cleared for HBOT today. VS stable. Patient completed full session with no problem. Antoinette Lau APRN 26Sep - Deemed safe for HBOT on this date and completed the full session uneventfully. LEXIS WATERS 29Sep - Patient cleared for HBOT today. VS stable. Patient completed 3 Seg session with no problem. Antoinette Lau APRN 30Sep - Patient cleared for HBOT today. VS stable. Patient completed full session with no problem. Antoinette Lau APRN Not available 06/30/2025 13:46:32 07/01/2025 [id number] BACKGROUND: Seema Delacruz is a 55 y.o. [...] Diagnosis: L97.512, E11.621 Session Notes: Today's Date 01Jul2025 HBOT session [...] slightly red, but she was asymptomatic. Nicolasa OIL PROSPECTING OBSERVER 01Aug - Patient deemed safe for HBOT today. VS stable. Patient completed full session with no problem. Antoinette Lau APRN 04Aug - Patient deemed safe for HBOT [...] antibiotics for an upper respiratory infection. Nicolasa HUTTONN 07Aug- Patient cleared for HBOT today. VS stable. PAtient had little trouble reaching pressure today, but had to come out of chamber early due to needing to use restroom. She managed to do 4 segs-118 minutes. M.A.Haxtun OIL PROSPECTING OBSERVER 08Aug - Patient cleared for HBOT today. VS stable. Patient completed full session with no problem. Antoinette Lau OIL PROSPECTING OBSERVER 11Aug - Patient cleared for HBOT today. [...] bit higher on a daily basis. Nicolasa OIL PROSPECTING OBSERVER 12Aug - Patient cleared for HBOT today. VS stable. Patient completed full session with no problem. Antoinette Lau OIL PROSPECTING OBSERVER 13Aug - Patient cleared for HBOT today. [...] attempt to try again on Sunday. Nicolasa OIL PROSPECTING OBSERVER 18Aug - Patient cleared for HBOT today. VS stable. Patient completed full session with no problem. [place].Jessica Lau OIL PROSPECTING OBSERVER 19Aug - Patient deemed safe for HBOT today. VS stable. FSBS within range. Patient completed full session with no problem. Antoinette Lau OIL PROSPECTING OBSERVER 2015Aug - Patient cleared for HBOT today. VS stable. Soon after reaching pressure, patient states that she is having anxiety, and wants to come out of chamber. We tried turning down pressure, and giving an air break, but she still insist on coming out. We brought her out, VS stable, wound care done. [place].Tanner OIL PROSPECTING OBSERVER 21Aug - Patient deemed safe for HBOT [...] date andcompleted full session free of problem. Estefania WATERS 29Aug - Cleared for HBOT his date and completed full session free of problem. Of note, this patient continues to smoke tobacco cigarettes. Estefania WATERS 02Sep - Patient deemed safe for [...] full session with no problem. [place].Jessica Judi OIL PROSPECTING OBSERVER 12Sep - Found safe for HBOT this date. Completed curtailed session free of problem. Session shortened to satisfy demand of ride provider. Estefania WATERS 15Sep - Patient cleared for HBOT today. VS stable. Patient completed full session with no problem. [place].MonicaDeepali Lau APRN 16Sep - Patient cleared for HBOT today. VS stable. Patient completed full session with no problem. [place].MonicaDeepali Lau OIL PROSPECTING OBSERVER 17Sep - Patient cleared for HBOT today. VS stable. Patient completed full session with no problem. [place].Jessica Judi OIL PROSPECTING OBSERVER 18Sep - Patient cleared for HBOT today. [...] full session with no problem. [place].Jessica Judi OIL PROSPECTING OBSERVER 19Sep - today patient arrived with suitable [...] full session with no problem. [place].MonicaDeepali Lau OIL PROSPECTING OBSERVER 23Sep - Patient cleared for HBOT today. VS stable. Patient completed full session with no problem. [place].MonicaDeepali Lau OIL PROSPECTING OBSERVER 24Sep - Patient cleared for HBOT today. VS stable. Patient completed full session with no problem. [place].MonicaDeepali Lau OIL PROSPECTING OBSERVER 25Sep - Patient cleared for HBOT today. VS stable. Patient completed full session with no problem. Antoinette Judi OIL PROSPECTING OBSERVER 26Sep - Deemed safe for HBOT on this date and completed the full session uneventfully. Estefania WATERS 29Sep - Patient cleared for HBOT today. VS stable. Patient completed 3 Seg session with no problem. Antoinette Lau OIL PROSPECTING OBSERVER 30Sep - Patient cleared for HBOT today. VS stable. Patient completed full session with no problem. Antoinette Lau OIL PROSPECTING OBSERVER 01Oct - Patient cleared for HBOT today. VS stable. Patient completed full session with no problem. Antoinette Lau OIL PROSPECTING OBSERVER Not available 07/01/2025 13:25:18 07/02/2025 [id number] BACKGROUND: Seema Delacruz is a [...] session with no problem. Antoinette Lau APRN 04Aug - Patient deemed safe for HBOT [...] antibiotics for an upper respiratory infection. Nicolasa SILVA 07Aug- Patient cleared for HBOT today. VS stable. PAtient had little trouble reaching pressure today, but had to come out of chamber early due to needing to use restroom. She managed to do 4 segs-118 minutes. Nicolasa SILVA 08Aug - Patient cleared for HBOT today. VS stable. Patient completed full session with no problem. M.A. Judi OIL PROSPECTING OBSERVER 11Aug - Patient cleared for HBOT today. [...] session with no problem. Antoinette Lau APRN 13Aug - Patient cleared for HBOT today. [...] attempt to try again on Sunday. Nicolasa HUTTONN 18Aug - Patient cleared for HBOT today. VS stable. Patient completed full session with no problem. Antoinette Lau OIL PROSPECTING OBSERVER 19Aug - Patient deemed safe for HBOT today. VS stable. FSBS within range. Patient completed full session with no problem. Antoinette Lau OIL PROSPECTING OBSERVER 2015Aug - Patient cleared for HBOT today. [...] no reports of anxiety during treatment. Antoinette Sotoleyla HUTTONN 22Aug - Cleared for HBOT this date [...] no anxiety at all now. Antoinette Lau OIL PROSPECTING OBSERVER 27Aug - Patient deemed safe for HBOT today. VS stable. FSBS within range. Patient completed full session with no problem. Antoinette Lau APRN 28Aug - Found safe for HBOT this date andcompleted full session free of problem. [facility] 29Aug - Cleared for HBOT his date [...] full session with no problem. Antoinette Lau OIL PROSPECTING OBSERVER 04Sep - Patient deemed safe for HBOT today. VS stable. Patient completed full session with no problem. Pt had wound care as well as an orange juice after tx bc her sugar was 72 coming out. Sat for about 15/20 minutes before getting up. Antoinette Lau OIL PROSPECTING OBSERVER 05Sep - Found safe for HBOT this [...] full session with no problem. Antoinette Lau OIL PROSPECTING OBSERVER 11Sep - Patient cleared for HBOT today. VS stable. Patient completed full session with no problem. Antoinette Lau OIL PROSPECTING OBSERVER 12Sep - Found safe for HBOT this date. Completed curtailed session free of problem. Session shortened to satisfy demand of ride provider. JMEstefania WATERS 15Sep - Patient cleared for HBOT today. VS stable. Patient completed full session with no problem. Antoinette Lau APRN 16Sep - Patient cleared for HBOT today. VS stable. Patient completed full session with no problem. M.MonicaDeepali Lau APRN 17Sep - Patient cleared for HBOT today. VS stable. Patient completed full session with no problem. M.ADeepali Lau APRN 18Sep - Patient cleared for [...] was to proceed to another medical appointment. [facility] 22Sep - Patient cleared for HBOT today. VS stable. Patient completed full session with no problem. Antoinette Lau APRN 23Sep - Patient cleared for HBOT today. VS stable. Patient completed full session with no problem. Antoinette Lau APRN 24Sep - Patient cleared for HBOT today. VS stable. Patient completed full session with no problem. [place].Jessica Lau APRN 25Sep - Patient cleared for HBOT today. VS stable. Patient completed full session with no problem. Antoinette Lau APRN 26Sep - Deemed safe for HBOT on this date and completed the full session uneventfully. [facility] 29Sep - Patient cleared for HBOT today. VS stable. Patient completed 3 Seg session with no problem. Antoinette Lau APRN 30Sep - Patient cleared for HBOT today. VS stable. Patient completed full session with no problem. Antoinette Lau APRN 01Oct - Patient cleared for HBOT today. VS stable. Patient completed full session with no problem. Antoinette Lau OIL PROSPECTING OBSERVER 02Oct - Cleared for HBOT this date and completed full session free of problem. Estefania WATERS [email or web address] Not available 07/03/2025 07:21:05 07/03/2025 [id number] BACKGROUND: Seema Delacruz is a 55 y.o. [...] have her wear ear plugs during treatment. AntointeteJudi SILVA 31July - Patient cleared for HBOT [...] was slightly red, but she was asymptomatic. AntoinetteJudi SILVA 01Aug - Patient deemed safe for HBOT today. VS stable. Patient completed full session with no problem. IsraelDeepaliMonicaDeepali Lau APRN 04Aug - Patient deemed safe for HBOT today. VS stable. Patient completed full session with no problem. IsraelDeepaliMonicaDeepali Lau APRN 05Aug - patient out for [...] in antibiotics for an upper respiratory infection. AntoinetteJudi SILVA 07Aug- Patient cleared for HBOT today. VS stable. PAtient had little trouble reaching pressure today, but had to come out of chamber early due to needing to use restroom. She managed to do 4 segs-118 minutes. AntoinetteJudi SILVA 08Aug - Patient cleared for HBOT today. VS stable. Patient completed full session with no problem. CompaDeepali Lau APRN 11Aug - Patient cleared for HBOT today. [...] bit higher on a daily basis. Nicolasa OIL PROSPECTING OBSERVER 12Aug - Patient cleared for HBOT today. VS stable. Patient completed full session with no problem. Antoinette Lau OIL PROSPECTING OBSERVER 13Aug - Patient cleared for HBOT today. VS stable. Patient completed full session with no problem. Wound care to follow treatment today. Antoinette Lau OIL PROSPECTING OBSERVER 14Aug - Patient cleared for HBOT today. [...] attempt to try again on Sunday. Nicolasa OIL PROSPECTING OBSERVER 18Aug - Patient cleared for HBOT today. VS stable. Patient completed full session with no problem. Antoinette Lau OIL PROSPECTING OBSERVER 19Aug - Patient deemed safe for HBOT today. VS stable. FSBS within range. Patient completed full session with no problem. Antoinette Lau OIL PROSPECTING OBSERVER 2015Aug - Patient cleared for HBOT today. VS stable. Soon after reaching pressure, patient states that she is having anxiety, and wants to come out of chamber. We tried turning down pressure, and giving an air break, but she still insist on coming out. We brought her out, VS stable, wound care done. [place].Tanner OIL PROSPECTING OBSERVER 21Aug - Patient deemed safe for HBOT today. VS stable. FSBS within range. Patient completed full session with no problem. Patient better tolerated treatment today in larger chamber with no reports of anxiety during treatment. Antoinette Lau OIL PROSPECTING OBSERVER 22Aug - Cleared for HBOT this date [...] date andcompleted full session free of problem. [facility] 29Aug - Cleared for HBOT his date and completed full session free of problem. Of note, this patient continues to smoke tobacco cigarettes. [facility] 02Sep - Patient deemed safe for HBOT [...] for about 15/20 minutes before getting up. Antoniette Lau APRN 05Sep - Found safe for HBOT this date and completed full session with no problem. However, on emerging her Dexcom read 62 for which she was symptom-free. Kept under observation until yuko above 80 and was discharged with 92. [facility] 08Sep - Patient deemed safe for HBOT today. VS stable. Patient completed full session with no problem. Antoinette Lau APRN 10Sep - Patient deemed safe for HBOT today. VS stable. Patient completed full session with no problem. Antoinette Lau APRN 11Sep - Patient cleared for HBOT today. VS stable. Patient completed full session with no problem. Antoinette Lau OIL PROSPECTING OBSERVER 12Sep - Found safe for HBOT this date. Completed curtailed session free of problem. Session shortened to satisfy demand of ride provider. Estefania WATERS 15Sep - Patient cleared for HBOT today. VS stable. Patient completed full session with no problem. Antoinette Judi OIL PROSPECTING OBSERVER 16Sep - Patient cleared for HBOT today. VS stable. Patient completed full session with no problem. [place].Jessica SotoHaxtun OIL PROSPECTING OBSERVER 17Sep - Patient cleared for HBOT today. VS stable. Patient completed full session with no problem. [place].Jessica SotoHaxtun OIL PROSPECTING OBSERVER 18Sep - Patient cleared for HBOT today. [...] full session with no problem. Antoinette Sotowood OIL PROSPECTING OBSERVER 19Sep - today patient arrived with suitable Glu so was cleared to proceed with HBOT taking a Glu Gel into chamber with her. She experienced no problem in chamber so completed full session, emerging with a border line safe Glu. She took snack items with her as she was to proceed to another medical appointment. [facility] 22Sep - Patient cleared for HBOT today. VS stable. Patient completed full session with no problem. [place].Jessica Judi OIL PROSPECTING OBSERVER 23Sep - Patient cleared for HBOT today. VS stable. Patient completed full session with no problem. [place].Jessica Judi OIL PROSPECTING OBSERVER 24Sep - Patient cleared for HBOT today. VS stable. Patient completed full session with no problem. [place].Jessica Judi OIL PROSPECTING OBSERVER 25Sep - Patient cleared for HBOT today. VS stable. Patient completed full session with no problem. [place].Jessica Judi OIL PROSPECTING OBSERVER 26Sep - Deemed safe for HBOT on this date and completed the full session uneventfully. [facility] 29Sep - Patient cleared for HBOT today. VS stable. Patient completed 3 Seg session with no problem. [place].MonicaDeepali Lau APRN 30Sep - Patient cleared for HBOT today. VS stable. Patient completed full session with no problem. CompaeDepali Lau APRN 01Oct - Patient cleared for HBOT today. VS stable. Patient completed full session with no problem. Antoinette Judi OIL PROSPECTING OBSERVER 02Oct - Cleared for HBOT this date and completed full session free of problem. LEXIS WATERS 03Oct - Deemed safe for HBOT today and completed her full session without problem. LEXIS WATERS [email or web address] Not available 07/03/2025 17:53:28 07/06/2025 [id number] BACKGROUND: Seema Delacruz is a 55 y.o. [...] have her wear ear plugs during treatment. IsraelDeepaliMonicaIsael SILVA 31July - Patient cleared for HBOT [...] was slightly red, but she was asymptomatic. CompaIsael HUTTONN 01Aug - Patient deemed safe for HBOT today. VS stable. Patient completed full session with no problem. IsraelDeepaliMonicaDeepali Lau APRN 04Aug - Patient deemed safe for HBOT today. VS stable. Patient completed full session with no problem. IsraelIlsa Lau APRN 05Aug - patient out for [...] in antibiotics for an upper respiratory infection. IsraelDeepaliMonicaIsael HUTTONN 07Aug- Patient cleared for HBOT today. VS stable. PAtient had little trouble reaching pressure today, but had to come out of chamber early due to needing to use restroom. She managed to do 4 segs-118 minutes. [place].MonicaIsael HUTTONN 08Aug - Patient cleared for HBOT today. VS stable. Patient completed full session with no problem. IsraelIlsa Lau APRN 11Aug - Patient cleared for HBOT today. [...] bit higher on a daily basis. Nicolasa OIL PROSPECTING OBSERVER 12Aug - Patient cleared for HBOT today. VS stable. Patient completed full session with no problem. Antoinette Lau OIL PROSPECTING OBSERVER 13Aug - Patient cleared for HBOT today. VS stable. Patient completed full session with no problem. Wound care to follow treatment today. Antoinette Lau OIL PROSPECTING OBSERVER 14Aug - Patient cleared for HBOT today. VS stable. Patient completed full session with no problem. [place].Jessica Lau OIL PROSPECTING OBSERVER 15Aug - Patient cleared for HBOT today. [...] attempt to try again on Sunday. Nicolasa OIL PROSPECTING OBSERVER 18Aug - Patient cleared for HBOT today. VS stable. Patient completed full session with no problem. [place].Jessica Lau OIL PROSPECTING OBSERVER 19Aug - Patient deemed safe for HBOT today. VS stable. FSBS within range. Patient completed full session with no problem. Antoinette Sotowood OIL PROSPECTING OBSERVER 2015Aug - Patient cleared for HBOT today. VS stable. Soon after reaching pressure, patient states that she is having anxiety, and wants to come out of chamber. We tried turning down pressure, and giving an air break, but she still insist on coming out. We brought her out, VS stable, wound care done. [place].Tanner OIL PROSPECTING OBSERVER 21Aug - Patient deemed safe for HBOT today. VS stable. FSBS within range. Patient completed full session with no problem. Patient better tolerated treatment today in larger chamber with no reports of anxiety during treatment. Antoinette Sotoleyla HUTTONN 22Aug - Cleared for HBOT this date [...] date andcompleted full session free of problem. [facility] 29Aug - Cleared for HBOT his date [...] full session with no problem. Antoinette Lau OIL PROSPECTING OBSERVER 10Sep - Patient deemed safe for HBOT today. VS stable. Patient completed full session with no problem. Antoinette Lau APRN 11Sep - Patient cleared for HBOT today. VS stable. Patient completed full session with no problem. Antoinette Lau OIL PROSPECTING OBSERVER 12Sep - Found safe for HBOT this date. Completed curtailed session free of problem. Session shortened to satisfy demand of ride provider. LEXIS WATERS 15Sep - Patient cleared for HBOT today. VS stable. Patient completed full session with no problem. M.A. Judi OIL PROSPECTING OBSERVER 16Sep - Patient cleared for HBOT today. VS stable. Patient completed full session with no problem. [place].Jessica SotoJudi OIL PROSPECTING OBSERVER 17Sep - Patient cleared for HBOT today. VS stable. Patient completed full session with no problem. [place].Jessica Lau OIL PROSPECTING OBSERVER 18Sep - Patient cleared for HBOT today. [...] full session with no problem. Antoinette Sotowood OIL PROSPECTING OBSERVER 19Sep - today patient arrived with suitable Glu so was cleared to proceed with HBOT taking a Glu Gel into chamber with her. She experienced no problem in chamber so completed full session, emerging with a border line safe Glu. She took snack items with her as she was to proceed to another medical appointment. [facility] 22Sep - Patient cleared for HBOT today. VS stable. Patient completed full session with no problem. [place].Jessica Judi OIL PROSPECTING OBSERVER 23Sep - Patient cleared for HBOT today. VS stable. Patient completed full session with no problem. [place].Jessica SotoHaxtun OIL PROSPECTING OBSERVER 24Sep - Patient cleared for HBOT today. VS stable. Patient completed full session with no problem. [place].Jessica Judi OIL PROSPECTING OBSERVER 25Sep - Patient cleared for HBOT today. VS stable. Patient completed full session with no problem. [place].Jessica Judi OIL PROSPECTING OBSERVER 26Sep - Deemed safe for HBOT on this date and completed the full session uneventfully. [facility] 29Sep - Patient cleared for HBOT today. VS stable. Patient completed 3 Seg session with no problem. [place].Jessica Judi OIL PROSPECTING OBSERVER 30Sep - Patient cleared for HBOT today. VS stable. Patient completed full session with no problem. [place].MonicaDeepali Lau APRN 01Oct - Patient cleared for HBOT today. VS stable. Patient completed full session with no problem. Antoinette Judi OIL PROSPECTING OBSERVER 02Oct - Cleared for HBOT this date and completed full session free of problem. [facility] 03Tasha - Deemed safe for HBOT today and completed her full session without problem. [facility] 06Tasha - Found safe for HBOT this date and tolerated her session free of problem. [facility] MD [email or web address] Not available 07/06/2025 14:36:54 Reason for Referral None Reported. Problems Name Problem SNOMED Code Status Onset Date Resolution Date Notes Provider Name and Address Organization Details Recorded Time Upper respiratory infection 81043933 Active 2024 COLEMAN LAU NP null, [place] - [facility] 12:18:40 Episodic migraine 8785916327916 Active 2024 COLEMAN LAU NP null, [place] - [facility] 12:34:01 Type 2 diabetes mellitus [id number] Active 2024 COLEMAN LAU NP null, [place] - [facility] 15:27:12 Refractory migraine with aura [id number] Active 2024 COLEMAN LAU NP null, [place] [...] [facility] Therapy Treatment Form completed [facility] - [facility] 06/25/2025 12:47:07 06/24/20 25 [facility] Therapy Treatment Form completed [facility] - [facility] 06/24/2025 12:40:20 06/23/20 25 [facility] Therapy Treatment Form completed [facility] - [facility] 06/23/2025 12:39:50 06/22/20 25 [facility] Therapy Treatment Form completed [facility] - [facility] 06/22/2025 12:49:55 06/19/20 25 [facility] Therapy Treatment Form completed Manfred Shelton MD [place] - [facility] 06/19/2025 14:13:24 06/18/20 25 [facility] Therapy Treatment Form completed COLEMAN LAU NP [place] [facility] 06/18/2025 13:17:34 06/17/20 25 [facility] Therapy Treatment Form completed [facility] 06/17/2025 12:29:15 06/16/20 25 [facility] Therapy Treatment Form completed [facility] - [facility] 06/16/2025 12:45:53 06/15/20 25 [facility] Therapy Treatment Form completed [facility] 06/15/2025 12:47:07 06/12/20 25 [facility] Therapy Treatment Form completed Manfred Shelton MD [place] - [facility] 06/12/2025 14:54:52 06/11/20 25 [facility] Therapy Treatment Form completed [facility] 06/11/2025 13:02:39 06/10/20 25 [facility] Therapy Treatment Form completed [facility] 06/10/2025 12:50:18 06/08/20 25 [facility] Therapy Treatment Form completed [facility] 06/08/2025 12:56:07 [...] Carolyn roland [place] - [facility] 05/29/2025 12:25:31 05/28/20 25 [facility] Therapy Treatment Form completed Carolyn roland [place] [facility] 05/28/2025 13:02:44 05/27/20 25 Wound completed COLEMAN LAU NP [place] [facility] 05/27/2025 13:18:22 05/27/20 25 [facility] Therapy Treatment Form completed Carolyn roland [place] - [facility] 05/27/2025 12:50:01 05/26/20 25 Nurse Note completed Luciana Noriega [place] [facility] 05/26/2025 16:40:42 05/26/20 25 [facility] Therapy Treatment Form completed Carolyn roland [place] - [facility] 05/26/2025 12:27:56 05/25/20 25 [facility] Therapy Treatment Form completed Carolyn roland [place] [facility] 05/25/2025 13:12:32 05/22/20 25 [facility] Therapy Treatment Form completed Carolyn roland [place] [facility] 05/22/2025 12:33:28 05/21/20 25 [facility] Therapy Treatment Form completed Carolyn roland [place] [facility] 05/21/2025 12:47:49 05/20/20 25 Wound completed COLEMAN LAU NP [place] [facility] 05/20/2025 13:22:44 05/20/20 25 [facility] Therapy Treatment Form completed Moraima Moses [place] [facility] 05/20/2025 12:52:27 05/19/20 25 [facility] Therapy Treatment Form completed Eveliapatricia Winters [place] - [facility] 05/19/2025 13:53:26 05/18/20 25 [facility] Therapy Treatment Form completed Carolyn roland [place] [facility] 05/18/2025 13:22:00 05/15/20 [...] Not available Not available Not available 04/23/2025 38484 3 RxNorm Luciana servin, [place] - [facility] 14:25:27 1104 Avelox medicatio n Not available Not available Not available 04/23/2025 74311 6 RxNorm Luciana servin, [place] - [facility] 14:25:52 1105 metformin medicatio n other Not available [facility] 04/23/20252023 6809 RxNorm GI issue s Luciana servin, [place] - [facility] 14:26:11 1253 Product containin g angiotens in-conver ting enzyme inhibitor (product) medicatio n cough moderate Not available 06/26/2025 54161 009 SNOMED Not Available taisha - External Data Service - prod 10:54:20 1254 metformin hydrochlo ride medicatio n Not available Not available Not available 06/26/2025 75008 3 RxNorm Not Available taisha - External [...] [place] [facility] 5 11:01:34 Date Recorded Heart rate Respiratory rate Body [...] [place] [facility] 5 13:04:53 Date Recorded Respiratory rate Heart rate Body [...] 93 % 145/81 mm[Hg] 110/58 mm[Hg] Paula Licea [place] [facility] 5 13:07:10 Date Recorded [...] % 153/83 mm[Hg] 123/61 mm[Hg] Paula Licea [place] [facility] 5 12:47:55 Date Recorded Heart rate Respiratory rate Body [...] % 97 % 142/79 mm[Hg] 118/71 mm[Hg] Carolyn roland [place] [facility] 5 13:06:17 Social [...] Note [id number] Manfred Shelton MD Main Office [address] [place] [address] 04/23/2025 14:15:51 04/24/2025 12:51:54 [id number] Manfred Shelton MD Main Office [address] [place] [address] 04/29/2025 10:50:02 04/29/2025 15:41:17 [id number] Manfred Shelton MD Main Office [address] [place] [address] 04/30/2025 11:16:06 04/30/2025 14:19:33 [id number] Manfred Shelton MD Main Office [address] [place] [address] 05/01/2025 10:18:55 05/01/2025 13:10:41 [id number] Manfred Shelton MD Main Office [address] [place] [address] 05/04/2025 10:46:48 05/04/2025 14:18:05 [id number] Manfred Shelton MD Main Office [address] [place] [address] 05/06/2025 10:55:59 05/06/2025 11:32:38 [id number] Manfred Shelton MD Main Office [address] [place] [address] 05/06/2025 13:04:28 05/07/2025 08:30:09 [id number] Manfred Shelton MD Main Office [address] [place] [address] 05/07/2025 10:45:55 05/08/2025 10:40:32 [id number] Manfred Shelton MD Main Office [address] [place] [address] 05/08/2025 10:55:11 05/08/2025 14:31:10 [id number] Manfred Shelton MD Main Office [address] [place] [address] 05/08/2025 13:08:42 05/08/2025 14:13:22 [id number] Manfred Shelton MD Main Office [address] [place] , [place] [address] 05/11/2025 10:59:55 05/11/2025 14:43:45 Type 2 diabetes mellitus 65594029 E11.69 [id number] Manfred Shelton MD Main Office [address] [place] , [place] [address] 05/12/2025 10:58:25 05/12/2025 16:06:58 [id number] Manfred Shelton MD Main Office [address] [place] , [place] [address] 05/13/2025 10:26:11 05/13/2025 14:22:52 Type 2 diabetes mellitus 33482272 E11.69 [id number] Manfred Shelton MD Main Office [address] [place] , [place] [address] 05/13/2025 13:16:44 05/13/2025 14:39:17 [id number] Manfred Shelton MD Main Office [address] [place] , [place] [address] 05/14/2025 10:20:17 05/14/2025 16:02:14 [id number] Manfred Shelton MD Main Office [address] [place] , [place] [address] 05/15/2025 10:48:13 05/18/2025 08:48:44 [id number] Manfred Shelton MD Main Office [address] [place] , [place] [address] 05/18/2025 10:59:56 05/18/2025 15:48:37 Type 2 diabetes mellitus 38121804 E11.69 [id number] Manfred Shelton MD Main Office [address] [place] , [place] [address] 05/19/2025 11:07:27 05/19/2025 14:52:31 [id number] Manfred Shelton MD Main Office [address] [place] , [place] [address] 05/20/2025 11:36:16 05/20/2025 13:20:26 [id number] Manfred Shelton MD Main Office [address] [place] , [place] [address] 05/20/2025 12:28:38 05/20/2025 13:24:07 [id number] Manfred Shelton MD Main Office [address] [place] [address] 05/21/2025 10:14:02 05/22/2025 08:40:53 [id number] Manfred Shelton MD Main Office [address] [place] [address] 05/22/2025 10:05:00 05/22/2025 14:31:52 [id number] COLEMAN JUDI, ORE SAMPLER Main Office [address] [place] [address] 05/25/2025 10:54:17 05/25/2025 14:23:41 [id number] COLEMAN [place], ORE SAMPLER Main Office [address] [place] [address] 05/26/2025 10:04:52 05/26/2025 13:22:24 [id number] COLEMAN [place], ORE SAMPLER Main Office [address] [place] [address] 05/26/2025 16:38:48 05/26/2025 16:40:45 [id number] COLEMAN [place], ORE SAMPLER Main Office [address] [place] [address] 05/27/2025 10:11:43 05/27/2025 13:22:20 [id number] COLEMANPATRICE LAU, ORE SAMPLER Main Office [address] [place] [address] 05/27/2025 13:11:38 05/27/2025 13:19:10 [id number] Manfred Shelton MD Main Office [address] [place] [address] 05/28/2025 10:14:13 05/29/2025 08:47:13 [id number] Manfred Shelton MD Main Office [address] [place] [address] 05/29/2025 10:04:58 05/29/2025 17:43:48 [id number] Manfred Shelton MD Main Office [address] [place] [address] 06/02/2025 10:25:50 06/02/2025 14:14:27 [id number] Manfred Shelton MD Main Office [address] [place] [address] 06/03/2025 10:16:52 06/03/2025 14:45:20 [id number] Manfred Shelton MD Main Office [address] [place] [address] 06/04/2025 10:31:23 06/04/2025 13:58:07 [id number] Manfred Shelton MD Main Office [address] [place] [address] 06/04/2025 14:13:52 06/04/2025 14:25:08 [id number] Manfred Shelton MD Main Office [address] [place] [address] 06/05/2025 10:55:07 06/05/2025 16:50:44 [id number] Manfred Shelton MD Main Office [address] [place] [address] 06/08/2025 10:25:37 06/08/2025 14:39:12 [id number] Manfred Shelton MD Main Office [address] [place] [address] 06/10/2025 10:19:13 06/10/2025 13:21:20 [id number] Manfred Shelton MD Main Office [address] [place] [address] 06/11/2025 10:35:04 06/11/2025 14:11:07 [id number] Manfred Shelton MD Main Office [address] [place] [address] 06/12/2025 10:59:45 06/12/2025 14:56:49 [id number] Manfred Shelton MD Main Office [address] [place] [address] 06/15/2025 10:50:33 06/15/2025 13:14:21 [id number] Manfred Shelton MD Main Office [address] [place] [address] 06/16/2025 10:14:56 06/16/2025 13:52:36 [id number] Manfred Shelton MD Main Office [address] [place] [address] 06/17/2025 10:28:52 06/17/2025 13:18:56 [id number] Manfred Shelton MD Main Office [address] [place] [address] 06/18/2025 10:16:09 06/18/2025 13:16:04 [id number] Manfred Shelton MD Main Office [address] [place] [address] 06/19/2025 10:44:19 06/19/2025 14:15:39 [id number] COLEMAN LAU NP Main Office [address] [place] [address] 06/22/2025 10:36:06 06/22/2025 14:32:28 [id number] Manfred Shelton MD Main Office [address] [place] [address] 06/23/2025 10:18:15 06/23/2025 14:03:00 [id number] Manfred Shelton MD Main Office [address] [place] [address] 06/24/2025 10:23:16 06/24/2025 13:37:08 [id number] Manfred Shelton MD Main Office [address] [place] [address] 06/25/2025 10:19:36 06/25/2025 14:27:35 [id number] Manfred Shelton MD Main Office [address] [place] [address] 06/26/2025 10:52:38 06/26/2025 16:27:47 [id number] Manfred Shelton MD Main Office [address] [place] [address] 06/29/2025 10:44:14 06/29/2025 13:39:12 [id number] Manfred Shelton MD Main Office [address] [place] [address] 06/30/2025 10:42:21 06/30/2025 13:46:39 [id number] Manfred Shelton MD Main Office [address] [place] [address] 07/01/2025 10:49:18 07/01/2025 13:25:24 [id number] Manfred Shelton MD Main Office [address] [place] [address] 07/02/2025 10:15:06 07/03/2025 07:21:23 [id number] Manfred Shelton MD Main Office [address] [place] [address] 07/03/2025 10:50:33 07/03/2025 17:53:35 [id number] Manfred Shelton MD Main Office [address] [place] [address] 07/06/2025 10:54:52 07/06/2025 14:37:01 Health Concerns Section Related Observation LastModified by Organization Detai ls LastModified Time None Recorded Concern Status LastModified by Organization Details LastModified Time None Recorded Advance Directives Directive None Recorded Payers Insurance Date Sequence Insurance Name Policy Number Policy Gonzales Covered Member ID Gonzales Member ID Guarantor Name 04/23/2025 2 [employer] Seema Delacruz [id number] Seema Delacruz 04/23/2025 1 [employer] Seema Delacruz [id number] Seema Delacruz OBGyn Episode No OBEpisode recorded.
--- OUTSIDE RECORDS SUMMARY | 2025-07-06 16:12 | XMS_ITS | Continuity of Care Document ---
Author Organization [place] - [facility], Main Office Address [address] [place] [address] Care Team Providers Care Film Historian Name Role Phone STEPHY YUSUF Primary Care [...] Modified By Organization Details Last Modified Time 06/23/2025 3326 BACKGROUND: Seema Delacruz is a 55 y.o. [...] E11.621 ___ ___ Session Notes: Today's Date 23Jun2025 HBOT session 36 of 40 Next HBOT [id number] 30Jul - Patient cleared for 1st HBOT [...] full session with no problem. [place].Jessica Lau SIGNALER 04Aug - Patient deemed safe for HBOT today. VS stable. Patient completed full session with no problem. Antoinette Lau SIGNALER 05Aug - patient out for another appt. [...] antibiotics for an upper respiratory infection. Nicolasa SIGNALER 07Aug- Patient cleared for HBOT today. VS stable. PAtient had little trouble reaching pressure today, but had to come out of chamber early due to needing to use restroom. She managed to do 4 segs-118 minutes. [place].Tanner SIGNALER 08Aug - Patient cleared for HBOT today. VS stable. Patient completed full session with no problem. Antoinette Lau SIGNALER 11Aug - Patient cleared for HBOT today. [...] full session with no problem. Antoinette Lau SIGNALER 13Aug - Patient cleared for HBOT today. VS stable. Patient completed full session with no problem. Wound care to follow treatment today. Antoinette Lau SIGNALER 14Aug - Patient cleared for HBOT today. VS stable. Patient completed full session with no problem. Antoinette Lau SIGNALER 15Aug - Patient cleared for HBOT today. [...] attempt to try again on Sunday. Nicolasa SIGNALER 18Aug - Patient cleared for HBOT today. VS stable. Patient completed full session with no problem. Antoinette Lau SIGNALER 19Aug - Patient deemed safe for HBOT today. VS stable. FSBS within range. Patient completed full session with no problem. Antoinette Lau SIGNALER 2015Aug - Patient cleared for HBOT today. [...] date andcompleted full session free of problem. [facility] 29Aug - Cleared for HBOT his date [...] session with no problem. [place].Jessica Lau APRN 10Sep - Patient deemed safe for HBOT today. VS stable. Patient completed full session with no problem. [place].MonicaDeepali Lau APRN 11Sep - Patient cleared for HBOT today. VS stable. Patient completed full session with no problem. [place].MonicaDeepali Lau SIGNALER 12Sep - Found safe for HBOT this date. Completed curtailed session free of problem. Session shortened to satisfy demand of ride provider. Estefania WATERS 15Sep - Patient cleared for HBOT today. VS stable. Patient completed full session with no problem. IsraelIlsa Lau APRN 16Sep - Patient cleared for HBOT today. VS stable. Patient completed full session with no problem. IsraelIlsa Lau APRN 17Sep - Patient cleared for HBOT today. VS stable. Patient completed full session with no problem. [place].Jessica Lau APRN 18Sep - Patient cleared for [...] no problem. Antoinette Lau APRN Not available 06/23/2025 14:02:50 Reason for Referral None Reported. Problems Name Problem SNOMED Code Status Onset Date Resolution Date Notes Provider Name and Address Organization Details Recorded Time Upper respiratory infection 43797377 Active 2024 COLEMAN LAU NP null, [place] - [facility] 12:18:40 Episodic migraine 5011593207561 06 Active 2024 COLEMAN LAU NP null, [place] [facility] 12:34:01 Type 2 diabetes mellitus 64362246 Active 2024 COLEMAN LAU NP null, [place] - [facility] 15:27:12 Refractory migraine with aura 819989352 Active 2024 COLEMAN LAU NP null, [place] - [facility] 10:56:52 Problem Notes None recorded. Procedures Surgical History Date Name Laterality Status Provider Name and Address Organization Details Recorded Time 07/06/20 25 [facility] Therapy Treatment Form completed [facility] - [facility] 07/06/2025 13:06:29 07/03/20 25 [facility] Therapy Treatment Form completed Paula Licea [place] - [facility] 07/03/2025 12:47:29 07/02/20 25 [facility] Therapy Treatment Form completed Paula Licea [place] - [facility] 07/02/2025 13:06:39 07/01/20 25 [facility] Therapy Treatment Form completed Paulajuancarlos Licea [place] - [facility] 07/01/2025 13:05:37 06/30/20 25 [facility] Therapy Treatment Form completed COLEMAN LAU NP [place] [facility] 06/30/2025 13:46:12 06/29/20 25 [facility] Therapy Treatment Form completed [facility] - [facility] 06/29/2025 13:24:58 06/26/20 25 [facility] Therapy Treatment Form completed Manfred Shelton MD [place] - [facility] 06/26/2025 16:57:55 06/25/20 25 [facility] Therapy Treatment Form completed [facility] - [facility] 06/25/2025 12:47:07 06/24/20 25 [facility] Therapy Treatment Form completed [facility] - [facility] 06/24/2025 12:40:20 06/23/20 25 [facility] Therapy Treatment Form completed Carolyn sharp [place] - [facility] 06/23/2025 12:39:50 06/22/20 25 [facility] Therapy Treatment Form completed [facility] - [facility] 06/22/2025 12:49:55 06/19/20 25 [facility] Therapy Treatment Form completed Manfred Shelton [place] [facility] 06/19/2025 14:13:24 06/18/20 25 [facility] Therapy Treatment Form completed COLEMAN LAU NP [place] - [facility] 06/18/2025 13:17:34 06/17/20 25 [facility] Therapy Treatment Form completed [facility] - [facility] 06/17/2025 12:29:15 06/16/20 25 [facility] Therapy Treatment Form completed [facility] - [facility] 06/16/2025 12:45:53 06/15/20 25 [facility] Therapy Treatment Form completed [facility] - [facility] 06/15/2025 12:47:07 06/12/20 25 [facility] Therapy Treatment Form completed Manfred Shelton [place] [facility] 06/12/2025 14:54:52 06/11/20 25 [facility] Therapy Treatment Form completed [facility] - [facility] 06/11/2025 13:02:39 06/10/20 25 [facility] Therapy Treatment Form completed [facility] - [facility] 06/10/2025 12:50:18 06/08/20 25 [facility] Therapy Treatment Form completed [facility] - [facility] 06/08/2025 12:56:07 06/05/20 25 [facility] Therapy Treatment Form completed Evelia Winters [place] - [facility] 06/05/2025 14:28:16 06/04/20 25 Wound completed COLEMAN LAU NP [place] - [facility] 06/04/2025 14:24:29 06/04/20 25 [facility] Therapy Treatment Form completed COLEMAN LAU NP [place] [facility] 06/04/2025 13:56:49 06/03/20 25 [facility] Therapy Treatment Form completed Evelia Winters [place] - [facility] 06/03/2025 14:11:11 06/02/20 25 [facility] Therapy Treatment Form completed Carolyn roland [place] - [facility] 06/02/2025 13:09:37 05/29/20 [...] Care Therapy Treatment Form completed Carolyn luan [place] - [facility] 05/26/2025 12:27:56 05/25/20 25 [facility] Therapy Treatment Form completed Carolyn luan [place] [facility] 05/25/2025 13:12:32 05/22/20 25 [facility] Therapy Treatment Form completed Carolyn luan [place] - [facility] 05/22/2025 12:33:28 05/21/20 25 [facility] Therapy Treatment Form completed Carolyn luan [place] [facility] 05/21/2025 12:47:49 05/20/20 [...] Not available 04/23/2025 5640 RxNorm Luciana servin, [place] [facility] 14:25:04 1102 Rocephin medicatio n Not available Not available Not available 04/23/2025 9449 RxNorm Luciana servin[place] [facility] 14:25:10 1103 Inapsine medicatio n Not available Not available Not available 04/23/2025 15330 3 RxNorm Luciana servin[place] [facility] 14:25:27 1104 Avelox medicatio n Not available Not available Not available 04/23/2025 49298 6 RxNorm Luciana servin[place] [facility] 14:25:52 1105 metformin medicatio n other Not available low 04/23/20252023 6809 RxNorm GI issue s Luciana servin, [place] [facility] 14:26:11 1253 Product containin g angiotens in-conver ting enzyme inhibitor (product) medicatio n cough moderate Not available 06/26/2025 20009 009 SNOMED Not Available taisha - [employer] - prod 10:54:20 1254 metformin hydrochlo ride medicatio n Not available Not available Not available 06/26/2025 14719 3 RxNorm Not Available [employer] External Data Service - prod 10:54:20 Medications [...] % 93 % 169/78 mm[Hg] 138/76 mm[Hg] [facility] - [facility] 5 12:40:08 [...] [id number] COLEMAN LAU NP Main Office [address] [address] 05/25/2025 10:54:17 05/25/2025 14:23:41 5071 COLEMAN LAU NP Main Office [address] [place] [address] 05/26/2025 10:04:52 05/26/2025 13:22:24 5083 COLEMAN LAU NP Main Office [address] [address] 05/26/2025 16:38:48 05/26/2025 16:40:45 5087 COLEMAN JASBIR, SPANISHER Main Office [address] [place] [address] 05/27/2025 10:11:43 05/27/2025 13:22:20 5093 COLEMAN JASBIR, SPANISHER Main Office [address] [place] [address] 05/27/2025 13:11:38 05/27/2025 13:19:10 [id number] Manfred Shelton MD Main Office [address] [place] [address] 05/28/2025 10:14:13 05/29/2025 08:47:13 [id number] Manfred Shelton MD Main Office [address] [place] [address] 05/29/2025 10:04:58 05/29/2025 17:43:48 [id number] Manfred Shelton MD Main Office [address] [place] [address] 06/02/2025 10:25:50 06/02/2025 14:14:27 [id number] Manfred Shelton MD Main Office [address] [place] [address] 06/03/2025 10:16:52 06/03/2025 14:45:20 [id number] Manfred Shelton MD Main Office [address] [place] [address] 06/04/2025 10:31:23 06/04/2025 13:58:07 [id number] Manfred Shelton MD Main Office [address] [place] [address] 06/04/2025 14:13:52 06/04/2025 14:25:08 [id number] Manfred Shelton MD Main Office [address] [place] [address] 06/05/2025 10:55:07 06/05/2025 16:50:44 [id number] Manfred Shelton MD Main Office [address] [place] [address] 06/08/2025 10:25:37 06/08/2025 14:39:12 [id number] Manfred Shelton MD Main Office [address] [place] [address] 06/10/2025 10:19:13 06/10/2025 13:21:20 [id number] Manfred Shelton MD Main Office [address] [place] [address] 06/11/2025 10:35:04 06/11/2025 14:11:07 [id number] Manfred Shelton MD Main Office [address] [place] [address] 06/12/2025 10:59:45 06/12/2025 14:56:49 [id number] Manfred Shelton MD Main Office [address] [place] [address] 06/15/2025 10:50:33 06/15/2025 13:14:21 [id number] Manfred Shelton MD Main Office [address] [place] [address] 06/16/2025 10:14:56 06/16/2025 13:52:36 [id number] Manfred Shelton MD Main Office [address] [place] [address] 06/17/2025 10:28:52 06/17/2025 13:18:56 [id number] Manfred Shelton MD Main Office [address] [place] [address] 06/18/2025 10:16:09 06/18/2025 13:16:04 [id number] Manfred Shelton MD Main Office [address] [place] [address] 06/19/2025 10:44:19 06/19/2025 14:15:39 5367 COLEMAN LAU NP Main Office [address] [place] [address] 06/22/2025 10:36:06 06/22/2025 14:32:28 [id number] Manfred Shelton MD Main Office [address] [place] [address] 06/23/2025 10:18:15 06/23/2025 14:03:00 Health Concerns Section Related Observation LastModified by Organization Detai ls LastModified Time None Recorded Concern Status LastModified by Organization Details LastModified Time None Recorded Payers Encounter Date Sequence Insurance Name Policy Number Policy Gonzales Covered Member ID Gonzales Member ID Guarantor Name 06/23/2025 2 [employer] Seema Delacruz [id number] Seema Delacruz 06/23/2025 1 [employer] Seema Delacruz [id number] Seema Delacruz OBGyn Episode No OBEpisode recorded.
--- OUTSIDE RECORDS SUMMARY | 2025-07-06 16:12 | XMS_ITS | Continuity of Care Document ---
Author Organization [place] - [facility], Main Office Address [address] [place] [address] Care Team Providers Care Assistant Track Coach Name Role Phone STEPHY YUSUF Primary Care [...] Modified By Organization Details Last Modified Time 05/21/2025 5869 BACKGROUND: Seema Delacruz is a 55 y.o. [...] E11.621 ___ ___ Session Notes: Today's Date 21May2025 HBOT session 165 of 40 Next HBOT [id number] 30Jul - Patient cleared for 1st HBOT [...] full session with no problem. [place].Jessica Lau SALES DEPARTMENT SUPERVISOR 04Aug - Patient deemed safe for HBOT today. VS stable. Patient completed full session with no problem. Antoinette Lau SALES DEPARTMENT SUPERVISOR 05Aug - patient out for another appt. [...] antibiotics for an upper respiratory infection. Nicolasa SALES DEPARTMENT SUPERVISOR 07Aug- Patient cleared for HBOT today. VS stable. PAtient had little trouble reaching pressure today, but had to come out of chamber early due to needing to use restroom. She managed to do 4 segs-118 minutes. [place].Tanner SALES DEPARTMENT SUPERVISOR 08Aug - Patient cleared for HBOT today. VS stable. Patient completed full session with no problem. Antoinette Lau SALES DEPARTMENT SUPERVISOR 11Aug - Patient cleared for HBOT [...] full session with no problem. Antoinette Lau SALES DEPARTMENT SUPERVISOR 13Aug - Patient cleared for HBOT today. VS stable. Patient completed full session with no problem. Wound care to follow treatment today. Antoinette Lau SALES DEPARTMENT SUPERVISOR 14Aug - Patient cleared for HBOT today. VS stable. Patient completed full session with no problem. Antoinette Lau SALES DEPARTMENT SUPERVISOR 15Aug - Patient cleared for HBOT [...] attempt to try again on Sunday. Nicolasa SALES DEPARTMENT SUPERVISOR 18Aug - Patient cleared for HBOT today. VS stable. Patient completed full session with no problem. Antoinette Lau SALES DEPARTMENT SUPERVISOR 19Aug - Patient deemed safe for HBOT today. VS stable. FSBS within range. Patient completed full session with no problem. Antoinette Lau SALES DEPARTMENT SUPERVISOR 2015Aug - Patient cleared for HBOT today. VS stable. Soon after reaching pressure, patient states that she is having anxiety, and wants to come out of chamber. We tried turning down pressure, and giving an air break, but she still insist on coming out. We brought her out, VS stable, wound care done. Nicolasa SALES DEPARTMENT SUPERVISOR 21Aug - Patient deemed safe for HBOT today. VS stable. FSBS within range. Patient completed full session with no problem. Patient better tolerated treatment today in larger chamber with no reports of anxiety during treatment. Antoinette Lau SALES DEPARTMENT SUPERVISOR Not available 05/22/2025 08:40:47 Reason for Referral None Reported. Problems Name Problem SNOMED Code Status Onset Date Resolution Date Notes Provider Name and Address Organization Details Recorded Time Upper respiratory infection 01730019 Active 2024 ABDOULAYE HAQ, [place] - [facility] 12:18:40 Episodic migraine 1228644732969 Active 2024 COLEMAN LAU NP null, [place] - [facility] 12:34:01 Type 2 diabetes mellitus 83660971 Active 2024 COLEMAN LAU NP null, [place] [facility] 15:27:12 Refractory migraine with aura 342702872 Active 2024 ABDOULAYE HAQ, [place] - [facility] 10:56:52 Problem [...] Oxygen Care Therapy Treatment Form completed [facility] - [facility] 06/29/2025 13:24:58 06/26/20 25 [facility] Therapy Treatment Form completed Manfred Shelton MD [place] - [facility] 06/26/2025 16:57:55 06/25/20 25 [facility] Therapy Treatment Form completed [facility] - [facility] 06/25/2025 12:47:07 06/24/20 25 [facility] Therapy Treatment Form completed [facility] - [facility] 06/24/2025 12:40:20 06/23/20 25 [facility] Therapy Treatment Form completed [facility] - [facility] 06/23/2025 12:39:50 06/22/20 25 [facility] Therapy Treatment Form completed [facility] - [facility] 06/22/2025 12:49:55 06/19/20 25 [facility] Therapy Treatment Form completed Manfred Shelton [place] [facility] 06/19/2025 14:13:24 06/18/20 25 [facility] Therapy Treatment Form completed COLEMAN LAU NP [place] [facility] 06/18/2025 13:17:34 06/17/20 25 [facility] Therapy Treatment Form completed [facility] - [facility] 06/17/2025 12:29:15 06/16/20 25 [facility] Therapy Treatment Form completed [facility] - [facility] 06/16/2025 12:45:53 06/15/20 25 [facility] Therapy Treatment Form completed [facility] - [facility] 06/15/2025 12:47:07 06/12/20 25 [facility] Therapy Treatment Form completed Manfred Shelton [place] [facility] 06/12/2025 14:54:52 06/11/20 25 [facility] Therapy Treatment Form completed [facility] - [facility] 06/11/2025 13:02:39 06/10/20 25 [facility] Therapy Treatment Form completed [facility] - [facility] 06/10/2025 12:50:18 06/08/20 25 [facility] Therapy Treatment Form completed [facility] - [facility] 06/08/2025 12:56:07 [...] [facility] Therapy Treatment Form completed [facility] [place] - [facility] 05/28/2025 13:02:44 05/27/20 25 Wound completed COLEMAN LAU NP [place] - [facility] 05/27/2025 13:18:22 05/27/20 25 [facility] Therapy Treatment Form completed [facility] [place] - [facility] 05/27/2025 12:50:01 05/26/20 25 Nurse Note completed Luciana Noriega [place] [facility] 05/26/2025 16:40:42 05/26/20 25 [facility] Therapy Treatment Form completed Carolyn luan [place] - [facility] 05/26/2025 12:27:56 05/25/20 25 [facility] Therapy Treatment Form completed [facility] [place] [facility] 05/25/2025 13:12:32 05/22/20 25 [facility] Therapy Treatment Form completed [facility] [place] [facility] 05/22/2025 12:33:28 05/21/20 25 [facility] Therapy Treatment Form completed Carolyn luan [place] - [facility] 05/21/2025 12:47:49 05/20/20 [...] Care Therapy Treatment Form completed Mary Miranda [place] - [facility] 04/29/2025 13:00:12 Knee [...] Not available Not available Not available 04/23/2025 57432 3 RxNorm Luciana servin, [place] - [facility] 14:25:27 1104 Avelox medicatio n Not available Not available Not available 04/23/2025 78340 6 RxNorm Luciana servin, [place] - [facility] 14:25:52 1105 metformin medicatio n other Not available low 04/23/20252023 6809 RxNorm GI issue s Luciana Noriega null, [place] - [facility] 14:26:11 1253 Product containin g angiotens in-conver ting enzyme inhibitor (product) medicatio n cough moderate Not available 06/26/2025 58797 009 SNOMED Not Available taisha - External [employer] - prod 10:54:20 1254 metformin hydrochlo ride medicatio n Not available Not available Not available 06/26/2025 97850 3 RxNorm Not Available wantagh - External [employer] - prod 5 [...] 5 80 /min 16 /min 97.9 [degF] 90 % 90 % 70 /min 16 /min 97.9 [degF] 93 % 93 % 157/71 mm[Hg] 137/73 mm[Hg] [facility] - [facility] 5 12:48:07 Date Recorded Heart rate Respiratory rate Body [...] % 94 % 155/69 mm[Hg] 137/79 mm[Hg] [facility] - [facility] 5 12:33:17 Social [...] MD Main Office [address] [facility] [place] [address] 04/23/2025 14:15:51 04/24/2025 12:51:54 [id number] Manfred Shelton MD Main Office [address] [facility] [place] [address] 04/29/2025 10:50:02 04/29/2025 15:41:17 4702 Manfred Shelton MD Main Office [address] [facility] [place] [address] 04/30/2025 11:16:06 04/30/2025 14:19:33 [id number] Manfred Shelton MD Main Office [address] [place] [address] 05/01/2025 10:18:55 05/01/2025 13:10:41 4729 Manfred Shelton MD Main Office [address] [place] [address] 05/04/2025 10:46:48 05/04/2025 14:18:05 [id number] Manfred Shelton MD Main Office [address] [place] [address] 05/06/2025 10:55:59 05/06/2025 11:32:38 [id number] Manfred Shelton MD Main Office [address] [facility] [place] [address] 05/06/2025 13:04:28 05/07/2025 08:30:09 4788 Manfred Shelton MD Main Office [address] [place] [address] 05/07/2025 10:45:55 05/08/2025 10:40:32 [id number] Manfred Shelton MD Main Office [address] [place] [address] 05/08/2025 10:55:11 05/08/2025 14:31:10 [id number] Manfred Shelton MD Main Office [address] [place] [address] 05/08/2025 13:08:42 05/08/2025 14:13:22 4821 Manfred Shelton MD Main Office [address] [place] [address] 05/11/2025 10:59:55 05/11/2025 14:43:45 Type 2 diabetes mellitus 64892016 E11.69 2574291998 [id number] Manfred Shelton MD Main Office [address] [place] [address] 05/12/2025 10:58:25 05/12/2025 16:06:58 4891 Manfred Shelton MD Main Office [address] [place] [address] 05/13/2025 10:26:11 05/13/2025 14:22:52 Type 2 diabetes mellitus 62297054 E11.69 [id number] [id number] Manfred Shelton MD Main Office [address] [place] [address] 05/13/2025 13:16:44 05/13/2025 14:39:17 [id number] Manfred Shelton MD Main Office [address] [place] , [place] [address] 05/14/2025 10:20:17 05/14/2025 16:02:14 [id number] Manfred Shelton MD Main Office [address] [place] , [place] [address] 05/15/2025 10:48:13 05/18/2025 08:48:44 4959 Manfred Shelton MD Main Office [address] [place] , [place] [address] 05/18/2025 10:59:56 05/18/2025 15:48:37 Type 2 diabetes mellitus 92068642 E11.69 [id number] [id number] Manfred Shelton MD Main Office [address] [place] [address] 05/19/2025 11:07:27 05/19/2025 14:52:31 5002 Manfred Shelton MD Main Office [address] [place] [address] 05/20/2025 11:36:16 05/20/2025 13:20:26 5003 Manfred Shelton MD Main Office [address] [place] [address] 05/20/2025 12:28:38 05/20/2025 13:24:07 [id number] Manfred Shelton MD Main Office [address] [place] [address] 05/21/2025 10:14:02 05/22/2025 08:40:53 Health Concerns Section Related Observation LastModified by Organization Detai ls LastModified Time None Recorded Concern Status LastModified by Organization Details LastModified Time None Recorded Payers Encounter Date Sequence Insurance Name Policy Number Policy Gonzales Covered Member ID Gonzales Member ID Guarantor Name 05/21/2025 2 [employer] [facility] Seema Delacruz [id number] Seema Delacruz 05/21/2025 1 [employer] Seema Delacruz [id number] Seema Delacruz OBGyn Episode No OBEpisode recorded.
--- OUTSIDE RECORDS SUMMARY | 2025-07-06 16:12 | XMS_ITS | Continuity of Care Document ---
Author Organization [place] [facility], Main Office Address [address] [place] [address] Care Team Providers Care Shift Supervisor Melting Name Role Phone STEPHY YUSUF Primary Care Provider [phone] Assessment No assessment recorded. Plan of Treatment [...] Modified By Organization Details Last Modified Time 05/19/2025 4005 BACKGROUND: Seema Delacruz is a 55 y.o. [...] E11.621 ___ ___ Session Notes: Today's Date [id number] HBOT session 14 of 40 Next HBOT [id number] 30Jul - Patient cleared for 1st HBOT [...] full session with no problem. [place].Jessica Lau ELECTRICAL CONTRACTOR 04Aug - Patient deemed safe for HBOT today. VS stable. Patient completed full session with no problem. Antoinette Lau ELECTRICAL CONTRACTOR 05Aug - patient out for another appt. [...] antibiotics for an upper respiratory infection. Nicolasa ELECTRICAL CONTRACTOR 07Aug- Patient cleared for HBOT today. VS stable. PAtient had little trouble reaching pressure today, but had to come out of chamber early due to needing to use restroom. She managed to do 4 segs-118 minutes. Nicolasa ELECTRICAL CONTRACTOR 08Aug - Patient cleared for HBOT today. VS stable. Patient completed full session with no problem. Antoinette Lau ELECTRICAL CONTRACTOR 11Aug - Patient cleared for HBOT today. [...] bit higher on a daily basis. Nicolasa ELECTRICAL CONTRACTOR 12Aug - Patient cleared for HBOT today. VS stable. Patient completed full session with no problem. Antoinette Lau ELECTRICAL CONTRACTOR 13Aug - Patient cleared for HBOT today. VS stable. Patient completed full session with no problem. Wound care to follow treatment today. Antoinette Lau ELECTRICAL CONTRACTOR 14Aug - Patient cleared for HBOT today. [...] will attempt to try again on Sunday. Maynorwood ELECTRICAL CONTRACTOR 18Aug - Patient cleared for HBOT today. VS stable. Patient completed full session with no problem. Antoinette Sotoleyla HUTTONN 19Aug - Patient deemed safe for HBOT today. VS stable. FSBS within range. Patient completed full session with no problem. Antoinette Lau ELECTRICAL CONTRACTOR Not available 05/19/2025 14:52:25 Reason for Referral None Reported. Problems Name Problem SNOMED Code Status Onset Date Resolution Date Notes Provider Name and Address Organization Details Recorded Time Upper respiratory infection 71964800 Active 2024 COLEMAN LAU NP null, [place] [facility] 12:18:40 Episodic migraine 6070512804180 06 Active 2024 COLEMAN LAU NP null, [place] [facility] 12:34:01 Type 2 diabetes mellitus 36410830 Active 2024 COLEMAN LAU NP null, [place] [facility] 15:27:12 Refractory migraine with aura 302892987 Active 2024 COLEMAN LAU NP null, [place] - [facility] 10:56:52 Problem Notes None recorded. Procedures Surgical History Date Name Laterality Status Provider Name and Address Organization Details Recorded Time 07/06/20 [facility] Therapy Treatment Form completed Carolyn roland [place] [facility] 07/06/2025 13:06:29 07/03/20 25 [facility] Therapy Treatment Form completed Paulajuancarlos Licea [place] - [facility] 07/03/2025 12:47:29 07/02/20 25 [facility] Therapy Treatment Form completed Paula Licea [place] - [facility] 07/02/2025 13:06:39 07/01/20 25 [facility] Therapy Treatment Form completed Paula Licea [place] [facility] 07/01/2025 13:05:37 06/30/20 25 [facility] Therapy Treatment Form completed COLEMAN LAU NP [place] [facility] 06/30/2025 13:46:12 06/29/20 25 [facility] Therapy Treatment Form completed Carolyn roland [place] - [facility] 06/29/2025 13:24:58 06/26/20 25 [facility] Therapy Treatment Form completed Manfred Shelton MD [place] - [facility] 06/26/2025 16:57:55 06/25/20 25 [facility] Therapy Treatment Form completed Carolyn roland [place] - [facility] 06/25/2025 12:47:07 06/24/20 25 [facility] Therapy Treatment Form completed Carolyn roland [place] [facility] 06/24/2025 12:40:20 06/23/20 25 [facility] Therapy Treatment Form completed [facility] - [facility] 06/23/2025 12:39:50 06/22/20 25 [facility] Therapy Treatment Form completed [facility] - [facility] 06/22/2025 12:49:55 06/19/20 25 [facility] Therapy Treatment Form completed Manfred Shelton [place] [facility] 06/19/2025 14:13:24 06/18/20 25 [facility] Therapy Treatment Form completed COLEMAN LAU NP [place] [facility] 06/18/2025 13:17:34 06/17/20 25 [facility] Therapy Treatment Form completed [facility] - [facility] 06/17/2025 12:29:15 06/16/20 25 [facility] Therapy Treatment Form completed [facility] - [facility] 06/16/2025 12:45:53 06/15/20 25 [facility] Therapy Treatment Form completed [facility] - [facility] 06/15/2025 12:47:07 06/12/20 25 [facility] Therapy Treatment Form completed Manfred Shelton [place] - [facility] 06/12/2025 14:54:52 06/11/20 25 [facility] Therapy Treatment Form completed [facility] - [facility] 06/11/2025 13:02:39 06/10/20 25 [facility] Therapy Treatment Form completed [facility] - [facility] 06/10/2025 12:50:18 06/08/20 25 [facility] Therapy Treatment Form completed [facility] - [facility] 06/08/2025 12:56:07 06/05/20 25 [facility] Therapy Treatment Form completed Eveliapatricia Winters [place] - [facility] 06/05/2025 14:28:16 06/04/20 25 Wound completed COLEMAN LAU NP [place] - [facility] 06/04/2025 14:24:29 06/04/20 25 [facility] Therapy Treatment Form completed COLEMAN LAU NP [place] [facility] 06/04/2025 13:56:49 06/03/20 25 [facility] Therapy Treatment Form completed Evelia Winters [place] [facility] 06/03/2025 14:11:11 06/02/20 25 [facility] Therapy Treatment Form completed Carolyn sharp [place] - [facility] 06/02/2025 13:09:37 05/29/20 25 [facility] Therapy Treatment Form completed [facility] - [facility] 05/29/2025 12:25:31 05/28/20 25 [facility] Therapy Treatment Form completed [facility] [place] [facility] 05/28/2025 [...] Care Therapy Treatment Form completed [facility] - [facility] 05/26/2025 12:27:56 05/25/20 25 [facility] Therapy Treatment Form completed [facility] - [facility] 05/25/2025 13:12:32 05/22/20 25 [facility] Therapy Treatment Form completed Carolyn luan [place] - [facility] 05/22/2025 12:33:28 05/21/20 25 [facility] Therapy Treatment Form completed Carolyn luan [place] - [facility] 05/21/2025 12:47:49 05/20/20 [...] Care Therapy Treatment Form completed Carolyn roland [place] [facility] 05/18/2025 13:22:00 05/15/20 [...] Not available Not available Not available 04/23/2025 01911 3 RxNorm Luciana servin, [place] - [facility] 14:25:27 1104 Avelox medicatio n Not available Not available Not available 04/23/2025 55611 6 RxNorm Luciana servin, [place] - [facility] 14:25:52 1105 metformin medicatio n other Not available low 04/23/20252023 6809 RxNorm GI issue s Luciana Noriega null, [place] - [facility] 14:26:11 1253 Product containin g angiotens in-conver ting enzyme inhibitor (product) medicatio n cough moderate Not available 06/26/2025 25633 009 SNOMED Not Available [employer]isha - [employer] - prod 10:54:20 1254 metformin hydrochlo ride medicatio n Not available Not available Not available 06/26/2025 77101 3 RxNorm Not Available [employer] External Data Service - prod 10:54:20 Medications [...] No t Available Vitals Date Recorded Body temperature Respiratory rate Heart rate Oxygen saturation Oxygen saturation in Arterial blood by Pulse oximetry Heart rate Respiratory rate Body temperature Oxygen saturation Oxygen saturation in Arterial blood by Pulse oximetry Systolic And Diastolic Systolic And Diastolic Provider Name and Address Organization Details Last Updated DateTime 5 99 [degF] 16 /min 75 /min 92 % 92 % 80 /min 16 /min 97.5 [degF] 85 % 85 % 159/81 mm[Hg] 162/81 mm[Hg] Evelia Singh [place] - [facility] 5 13:54:03 Social History None recorded. Functional Status None [...] 4626 Manfred Shelton MD Main Office [address] [place] [address] 04/23/2025 14:15:51 04/24/2025 12:51:54 4683 Manfred Shelton MD Main Office [address] [place] [address] 04/29/2025 10:50:02 04/29/2025 15:41:17 4702 Manfred Shelton MD Main Office [address] [place] [address] 04/30/2025 11:16:06 04/30/2025 14:19:33 4714 Manfred Shelton MD Main Office [address] [place] [address] 05/01/2025 10:18:55 05/01/2025 13:10:41 4729 Manfred Shelton MD Main Office [address] [place] [address] 05/04/2025 10:46:48 05/04/2025 14:18:05 4767 Manfred Shelton MD Main Office [address] [place] [address] 05/06/2025 10:55:59 05/06/2025 11:32:38 4772 Manfred Shelton MD Main Office [address] [place] [address] 05/06/2025 13:04:28 05/07/2025 08:30:09 4788 Manfred Shelton MD Main Office [address] [place] [address] 05/07/2025 10:45:55 05/08/2025 10:40:32 4802 Manfred Shelton MD Main Office [address] [place] [address] 05/08/2025 10:55:11 05/08/2025 14:31:10 4806 Manfred Shelton MD Main Office [address] [place] [address] 05/08/2025 13:08:42 05/08/2025 14:13:22 4821 Manfred Shelton MD Main Office [address] [place] [address] 05/11/2025 10:59:55 05/11/2025 14:43:45 Type 2 diabetes mellitus 24849548 E11.69 [id number] 4851 Manfred Shelton MD Main Office [address] [place] [address] 05/12/2025 10:58:25 05/12/2025 16:06:58 4891 Manfred Shelton MD Main Office [address] [place] [address] 05/13/2025 10:26:11 05/13/2025 14:22:52 Type 2 diabetes mellitus 27767001 E11.69 [id number] 4894 Manfred Shelton MD Main Office [address] [place] [address] 05/13/2025 13:16:44 05/13/2025 14:39:17 4914 Manfred Shelton MD Main Office [address] [place] [address] 05/14/2025 10:20:17 05/14/2025 16:02:14 4939 Manfred Shelton MD Main Office [address] [place] [address] 05/15/2025 10:48:13 05/18/2025 08:48:44 4959 Manfred Shelton MD Main Office [address] [place] [address] 05/18/2025 10:59:56 05/18/2025 15:48:37 Type 2 diabetes mellitus 65731770 E11.69 [id number] 4981 Manfred Shelton MD Main Office [address] [place] [address] 05/19/2025 11:07:27 05/19/2025 14:52:31 Health Concerns Section Related Observation LastModified by Organization Detai ls LastModified Time None Recorded Concern Status LastModified by Organization Details LastModified Time None Recorded Payers Encounter Date Sequence Insurance Name Policy Number Policy Gonzales Covered Member ID Gonzales Member ID Guarantor Name 05/19/2025 2 [employer] Seema Delacruz [id number] Seema Delacruz 05/19/2025 1 [employer] Seema Delacruz [id number] Seema Delacruz OBGyn Episode No OBEpisode recorded.
--- NOTE | 2025-07-06 16:41 | XR_ITS ---
FINAL REPORT CLINICAL HISTORY: diabetic foot ulcer, cellulitis, pain COMPARISON: CT dated 11/24/2024 FINDINGS: AP, oblique and lateral views of the right foot were obtained. 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 The bones are osteopenic. There is multijoint degenerative disease. There is no convincing bone destruction. There is mild soft tissue edema along the plantar aspect of the hindfoot. There is questionable subcutaneous air. No foreign body is identified. IMPRESSION: Postoperative and degenerative changes without convincing plain film osteomyelitis. Probable hindfoot cellulitis, subcutaneous air is not excluded. Reviewed, Interpreted and Dictated by Valentina Lopes MD Transcribed by Vida Rodriguez Authenticated and [facility]
[2025-07-06 16:57] LABS: Hematocrit 42.2 % (37.0-47.0); Hemoglobin 14.2 g/dL (12.2-16.2); Immature Granulocytes % 0.3 %; Mean Corpuscular HGB Conc 33.6 g/dL (31.8-35.4); Mean Corpuscular Hemoglobin 29.8 pg (27.0-31.2); Mean Corpuscular Volume 88.5 fl (81-99); Nucleated Red Blood Cells % 0 %; Platelet Count 233 K/mm3 (142-424); Red Blood Count 4.77 M/mm3 (4.20-5.40); Red Cell Distribution Width-SD 42.4 fL; White Blood Count 11.2 K/mm3 (4.8-10.8)
[2025-07-06 18:08] LABS: Hemoglobin A1C 6.7 % (4.0-6.0)
[2025-07-06 19:09] LABS: Alanine Aminotransferase 13 U/L (12-78); Albumin Level 3.5 g/dl (3.5-5.0); Albumin/Globulin Ratio 1.0 (1.1-1.8); Alkaline Phosphatase 147 U/L (38-126); Anion Gap 10.7 mEq/L (5-15); Aspartate Amino Transferase 22 U/L (14-36); Bilirubin,Total 0.4 mg/dl (0.2-1.3); Blood Urea Nitrogen 18 mg/dl (7-17); Calcium 9.1 mg/dl (8.4-10.2); Carbon Dioxide 33 mmol/L (22.0-30.0); Chloride 98 mmol/L (98-107); Creatinine,Serum 0.80 mg/dl (0.52-1.04); Estimated Glomerular Filt Rate 74 ml/min (>60); GFR (African American) 90 ML/MIN (>60); Globulin 3.4 g/dL (1.3-3.2); Glucose 129 mg/dl (74-100); Potassium 4.7 mmoL/L (3.5-5.1); Sodium 137 mmol/L (136-145); Total Protein,Serum 6.9 g/dl (6.3-8.2); Uric Acid 4.5 mg/dl (2.5-6.2)
[2025-07-06 19:20] LABS: C-Reactive Protein 8.3 mg/L (0-4)
== END 2025-07-06 23:59 | disposition home or self-care (01) ==
LOC: RT 15:59
PROVIDERS: PCP Nurse Practitioner; Visit Provider Podiatrist
DX: M19.071 Primary osteoarthritis, right ankle and foot (principal); M21.6X1 Other acquired deformities of right foot; E11.621 Type 2 diabetes mellitus with foot ulcer; L97.519 Non-pressure chronic ulcer of other part of right foot with unspecified severity; M86.671 Other chronic osteomyelitis, right ankle and foot; L03.115 Cellulitis of right lower limb; R93.6 Abnormal findings on diagnostic imaging of limbs; Z87.39 Personal history of other diseases of the musculoskeletal system and connective tissue; Z86.718 Personal history of other venous thrombosis and embolism; Z98.890 Other specified postprocedural states
CPT/HCPCS: 36415; 73630; 80053; 83036; 84550; 85025; 85651; 86140; 87070; 87205; 93971

== ENCOUNTER 2025-08-21 14:53 | Outpatient (CLI) | payer MEDICARE, OTHER, SELFPAY ==
--- OUTSIDE RECORDS SUMMARY | 2025-08-21 14:56 | XMS_ITS | Clinical Summary ---
Author Organization [facility] Address [address] [place] [address] Care Team Providers Care Forming Process Worker Name Role Phone Unavailable Primary Care [...] Payer (Ef fective 2002-Present) Name:Seema Delacruz Member ID:[id number] Relation to Subscriber:Self Name:Seema Delacruz Subscriber ID:[id number] Payer ID:[id number] Group ID:Not on file Type:Not on file Address: [id number]
--- OUTSIDE RECORDS SUMMARY | 2025-08-21 14:56 | XMS_ITS | Encounter Summary ---
Author Organization Healthcare Address [address] [place] [address] Care Team Providers Care Customer Program Manager Name Role Phone Fasutino Amador MD Primary Care Provider [phone] Reason for Referral * Consultation (Routine) - Closed Specialty Diagnoses / Procedures Referred By Betito carty Referred To Contact Plastic Surgery Diagnoses Excess skin Khurram Chanel APRN [address] [place] [address] Phone: tel: fax: Referral ID Status Reason Start Date Expiration Date V isits Requested Visits Authorized [id number] Closed Specialty Services Required 11/29/2021 05/31/2023 1 1 Encounter Details Date Type Department Care Team (Late st Contact Info) Description 11/29/2021 [facility] [address] [place] [address] Khurram Chanel APRN [address] [place] [address] Excess skin (Primary Dx) Social History Tobacco [...] Primary documented in this encounter Care Teams Customer Program Manager Relationship Specialty Start Date End Date Faustino Amador MD [address] [place] [address] PCP - General 03/14/21 documented as of this encounter
--- OUTSIDE RECORDS SUMMARY | 2025-08-21 14:56 | XMS_ITS | Clinical Summary ---
Author Organization [facility] Address [address] [place] [address] Phone Care Team Providers Care Neighborhood Service Center Director Name Role Phone Unavailable Primary Care Provider [...] Impressions 11/19/2023 7:29 AM EST Benign finding (XOC-Uqdxivsh-9) ~ RECOMMENDATION: Routine screening mammogram in 1 [...] the next mammogram, in accordance with the [place] [employer] and the Society of Breast Imaging recommendations. Narrative 11/19/2023 7:29 AM EST Procedure:MM MAMMO DIGITAL EULALIA SCREEN BILAT ~ Reason for exam: screening, asymptomatic. Z12.31-Encounter for screening mammogram for malignant neoplasm of xdokbd-ICA-41-CM ~ MM MAMMO DIGITAL EULALIA SCREEN BILAT [...] for screening mammogram for malignant neoplasm of cbsaql-KJA-78-CM ~ MM MAMMO DIGITAL EULALIA SCREEN BILAT [...] evidence of malignancy. ~ IMPRESSION: Benign finding (ICT-Sgawhteh-2) ~ RECOMMENDATION: Routine screening mammogram in 1 [...] the next mammogram, in accordance with the [place] [employer] and the Society of Breast Imaging recommendations. us Not In [facility] Provider IMG MAMMOGRAPHY ORDERABLES Final Result from Last 3 Months or Most Recently Relevant to Health Maintenance Insurance [address] [address] AETNA MEDICARE HMO
--- OUTSIDE RECORDS SUMMARY | 2025-08-21 14:56 | XMS_ITS | Referral Summary ---
Author Organization [employer] [facility] ([place], [place], [place], [place], [place]) Address [address] [place] [address] Care Team Providers Care Junior Financial Analyst Name Role Phone Unavailable Primary Care Provider [...]
--- OUTSIDE RECORDS SUMMARY | 2025-08-21 14:56 | XMS_ITS | Clinical Summary ---
Author Organization [employer] [facility] ([place], [place], [place], [place], [place]) Address [address] [place] [address] Care Team Providers Care Automatic Maintainer Name Role Phone Unavailable Primary Care Provider [...]
--- OUTSIDE RECORDS SUMMARY | 2025-08-21 14:56 | XMS_ITS | Clinical Summary ---
Author Organization Healthcare Address [address] [place] [address] Care Team Providers Care Legal Support Specialist Name Role Phone Faustino Amador MD Primary Care Provider + [phone] Allergies Active Allergy Reactions Criticality Noted Date [...] day. 10/10/19 Active Lancets (OneTouch Delica Plus Iowcyd08Z) [facility] [place]/11/20 Active Easy Comfort Pen Eleanor 31G X 5 MM [facility] 12/11/19 Active HumuLIN 70/30 KWIKPEN (70-30) 100 UNIT/ML injection 60 Units 2 (two) times a day before meals. 09/06/20 Active OneTouch Verio test strip 07/11/20 Active gabapentin (Neurontin) 400 MG capsule Take 1 capsule (400 mg) by mouth 4 (four) times a day. 11/21/19 Active cyclobenzaprine (Fexmid) 7.5 MG tablet every night. 10/28/19 Active Continuous Blood Gluc Sensor (FreeStyle Joelle 14 Day Sensor) [facility] 11/14/19 Active diclofenac (Voltaren) 75 MG EC [...] directed 10/29/19 24 Active ergocalciferol 1.25 MG (55546 UT) capsule Take 1 capsule every week by oral route for 90 days. 10/29/19 24 Active methocarbamol (Robaxin) 500 MG tablet 10/29/19 24 Active ondansetron ODT (Zofran-ODT) [address] 1 tablet every 4-6 hours by translingual route as needed. Active therapeutic multivitamin-naturalization examiner als (Theragran-M) tablet Take 1 tablet [...] (12/16/2021): Added automatically from request for surgery [id number] Microalbuminuria 03/12/2020 Cervical radiculopathy 11/22/2018 Neck pain [...] (05/24/2022): Added automatically from request for surgery [id number] Family History Medical History Relation Name Comments [...] drink first t debra in the morning (EYE-CLINICAL COORDINATOR) to steady your nerves or to get [...] Health Maintenance Due Date Last Done Comments [facility]-Diabetes: Hemoglobin A1C 1969 [facility]-HIV Screening 1969 [facility]-Hepatitis [...] 2014 Sigmoidoscopy 2014 [facility]-Colorectal Cancer Screening 2014 Lung Cancer Screening Shared Decision Making 2019 [facility]-Lung Cancer Screening 2019 [facility]-Zoster Vaccines (1 of 2) 2019 [facility]-Depression Screening 11/12/2024 11/12/2023 BEV-DSANZ-86 Vaccine (3 - season) 2025 04/07/2021, 03/17/2021 [...] this topic Medical Devices Implanted Type Area Video Production Specialist Device Identifier Shelf Expiration Date Model / Serial / Lot Pain Pump Pain Pump Right: Back Insurance [employer] BET[employer] MEDICAID AETNA MEDICARE [employer] MEDICARE Advance Directives * Full Code (Latest Code Status on File) Date Activated Date Inactivated Comments 05/24/2022 4:10 PM 05/26/2022 3:36 PM Question Answer Comments Patient has decision-making capacity? Yes Care Teams Legal Support Specialist Relationship Specialty Start Date End Date Faustino Amador MD [address] [place] [address] PCP - General 03/14/21
--- OUTSIDE RECORDS SUMMARY | 2025-08-21 14:56 | XMS_ITS | Clinical Summary ---
Author Organization [facility] Address [address] [place] [address] Phone Care Team Providers Care Master Certified Rv Technician Name Role Phone Sanaz RN, Linn [...] lower limb Acute respiratory failure with hypercapnia 65648310 (SNOMED CT) Active Freda Medina Acute respiratory failure Leukemoid reaction 64031573 (SNOMED CT) Active Freda Medina Leukemoid reaction emt intermediate (current) use of systemic steroids Z79.52 (ICD-10-CM ) Active Freda Medina [facility] (current) use of systemic steroids Benign Essential Hypertension 39208125 (SNOMED CT) Active Freda Medina Benign hypertension [...]
--- NOTE | 2025-08-21 15:05 | ECG_ITS ---
APPROVED REPORT Exam: Resting ECG HR:79 bpm ECG Measurements Heart Rate 79 AXES AL 195 P 73 QRSd 99 QRS 72 QT 375 T 65 QTc 410 Conclusion SINUS RHYTHM WITH MARKED SINUS ARRHYTHMIA POSSIBLE LEFT ATRIAL ENLARGEMENT [-0.1mV P-WAVE IN V1/V2] POSSIBLE ANTERIOR MYOCARDIAL INFARCTION , OF INDETERMINATE AGE [30 ms Q WAVE IN V3/V4, OR R < 0.2 mV IN V4] ABNORMAL ECG UNCONFIRMED REPORT Electronically signed by : Viraj Becerra MD 08/22/2025 08:23:27
--- NOTE | 2025-08-21 15:23 | XR_ITS ---
FINAL REPORT TECHNIQUE: Chest PA & Lateral CLINICAL HISTORY: hx of smoking, COPD, cough, pre-op exam COMPARISON: 07/12/2024 FINDINGS: 2 views of the chest were performed. There are thoracic stimulator leads in the lower thoracic spine. The heart size is normal. The mediastinum is within normal limits. There is scarring or atelectasis at the right base. There is no acute cardiopulmonary process. There are no pleural effusions. There is no pneumothorax. The bony thorax appears intact. IMPRESSION: No acute cardiopulmonary process. Reviewed, Interpreted and Dictated by Agustin Frazier MD Transcribed by Aretha Nicole Authenticated and [facility]
--- NOTE | 2025-08-21 15:30 | CT_ITS ---
FINAL REPORT TECHNIQUE: Thin section axial CT images with coronal and sagittal reformats were performed of the right foot. This study was performed with techniques to keep radiation doses as low as reasonably achievable (ALARA). Individualized dose reduction techniques using automated exposure control or adjustment of mA and/or kV according to the patient''s size were employed. CLINICAL HISTORY: Eval 4th met Osteomyelitis, 3rd met fracture states surgery planned for sep 02 COMPARISON: 03/09/2025 FINDINGS: There are well corticated ossific densities anterior margin of the mortise measuring up to 5 mm. There has been resection of the 5th digital ray. 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 There is a soft tissue ulcer seen along the plantar aspect of the tarsal cuboid. There is no evidence of bony erosion. The ulcer is less evident than on the previous exam. No bony erosion seen of the mid or distal 4th metatarsal. There are few ossific fragments adjacent to the amputation of the proximal 4th metatarsal seen on the prior exam as well. IMPRESSION: Interval improvement of the ulcer. No new erosions. Reviewed, Interpreted and Dictated by Agustin Frazier MD Transcribed by Stacy Gray Authenticated and [facility]
[2025-08-21 15:45] LABS: Hematocrit 45.2 % (37.0-47.0); Hemoglobin 14.7 g/dL (12.2-16.2); Immature Granulocytes % 0.1 %; Mean Corpuscular HGB Conc 32.5 g/dL (31.8-35.4); Mean Corpuscular Hemoglobin 29.1 pg (27.0-31.2); Mean Corpuscular Volume 89.5 fl (81-99); Nucleated Red Blood Cells % 0 %; Platelet Count 258 K/mm3 (142-424); Red Blood Count 5.05 M/mm3 (4.20-5.40); Red Cell Distribution Width-SD 44.2 fL; White Blood Count 10.0 K/mm3 (4.8-10.8)
[2025-08-21 16:18] LABS: Alanine Aminotransferase 13 U/L (12-78); Albumin Level 3.8 g/dl (3.5-5.0); Albumin/Globulin Ratio 1.0 (1.1-1.8); Alkaline Phosphatase 128 U/L (38-126); Anion Gap 8.8 mEq/L (5-15); Aspartate Amino Transferase 25 U/L (14-36); Bilirubin,Total 0.4 mg/dl (0.2-1.3); Blood Urea Nitrogen 19 mg/dl (7-17); Calcium 9.4 mg/dl (8.4-10.2); Carbon Dioxide 30 mmol/L (22.0-30.0); Chloride 99 mmol/L (98-107); Creatinine,Serum 0.70 mg/dl (0.52-1.04); Estimated Glomerular Filt Rate 87 ml/min (>60); GFR (African American) 105 ML/MIN (>60); Globulin 4.0 g/dL (1.3-3.2); Glucose 149 mg/dl (74-100); Potassium 4.8 mmoL/L (3.5-5.1); Sodium 133 mmol/L (136-145); Total Protein,Serum 7.8 g/dl (6.3-8.2)
[2025-08-21 16:24] LABS: C-Reactive Protein 4.2 mg/L (0-4)
== END 2025-08-21 23:59 | disposition home or self-care (01) ==
LOC: RAD 14:54
PROVIDERS: PCP Nurse Practitioner; Visit Provider Podiatrist
DX: Z01.810 Encounter for preprocedural cardiovascular examination (principal); I49.8 Other specified cardiac arrhythmias; E11.621 Type 2 diabetes mellitus with foot ulcer; L97.515 Non-pressure chronic ulcer of other part of right foot with muscle involvement without evidence of necrosis; L03.115 Cellulitis of right lower limb; S92.334G Nondisplaced fracture of third metatarsal bone, right foot, subsequent encounter for fracture with delayed healing; M86.671 Other chronic osteomyelitis, right ankle and foot; E66.01 Morbid (severe) obesity due to excess calories; E11.42 Type 2 diabetes mellitus with diabetic polyneuropathy; I10 Essential (primary) hypertension; R94.31 Abnormal electrocardiogram [ECG] [EKG]; Z79.4 Long term (current) use of insulin; Z87.09 Personal history of other diseases of the respiratory system; Z72.0 Tobacco use
CPT/HCPCS: 36415; 71046; 73700; 80053; 85025; 85651; 86140; 93005

== ENCOUNTER 2025-09-15 14:30 | Outpatient (CLI) | payer MEDICARE, OTHER, SELFPAY ==
--- OUTSIDE RECORDS SUMMARY | 2025-09-15 14:33 | XMS_ITS | Clinical Summary ---
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
--- OUTSIDE RECORDS SUMMARY | 2025-09-15 14:33 | XMS_ITS | Clinical Summary ---
Author Organization [employer] [facility] ([place], [place], [place], [place], [place]) Address [address] [place] [address] Care Team Providers Care Bail Bonding Agent Name Role Phone Unavailable Primary Care Provider [...]
--- OUTSIDE RECORDS SUMMARY | 2025-09-15 14:33 | XMS_ITS | Encounter Summary ---
Author Organization Healthcare Address [address] [place] [address] Care Team Providers Care Ornamental Metal Worker Helper Name Role Phone Faustino Amador MD Primary Care Provider [phone] Reason for Referral * Consultation (Routine) - Closed Specialty Diagnoses / Procedures Referred By Betito carty Referred To Contact Plastic Surgery Diagnoses Excess skin Khurram Chanel APRN [address] [place] [address] Phone: tel: fax: Referral ID Status Reason Start Date Expiration Date V isits Requested Visits Authorized [id number] Closed Specialty Services Required 11/29/2021 05/31/2023 1 1 Encounter Details Date Type Department Care Team (Late st Contact Info) Description 11/29/2021 Community [facility] [address] [place] [address] Khurram Chanel APRN [address] [place] [id number] Excess skin (Primary Dx) Social History Tobacco [...] Primary documented in this encounter Care Teams Ornamental Metal Worker Helper Relationship Specialty Start Date End Date Faustino Amador MD [address] [place] [address] PCP - General 03/14/21 documented as of this encounter
--- OUTSIDE RECORDS SUMMARY | 2025-09-15 14:33 | XMS_ITS | Clinical Summary ---
Author Organization [facility] Address [address] [place] [address] Phone Care Team Providers Care Online Content Developer Name Role Phone Unavailable Primary Care [...] Impressions 11/19/2023 7:29 AM EST Benign finding (BGM-Kitgytin-5) ~ RECOMMENDATION: Routine screening mammogram in 1 [...] the next mammogram, in accordance with the [employer] and the Society of Breast Imaging recommendations. Narrative 11/19/2023 7:29 AM EST Procedure:MM MAMMO DIGITAL EULALIA SCREEN BILAT ~ Reason for exam: screening, asymptomatic. Z12.31-Encounter for screening mammogram for malignant neoplasm of anbzgm-WCJ-73-CM ~ MM MAMMO DIGITAL EULALIA SCREEN BILAT [...] for screening mammogram for malignant neoplasm of drwlxx-FWJ-64-CM ~ MM MAMMO DIGITAL EULALIA SCREEN BILAT [...] evidence of malignancy. ~ IMPRESSION: Benign finding (MZQ-Txjzrrza-4) ~ RECOMMENDATION: Routine screening mammogram in 1 [...] the next mammogram, in accordance with the [employer] and the Society of Breast Imaging recommendations. us Not In [facility] Provider IMG MAMMOGRAPHY ORDERABLES Final Result from Last 3 Months or Most Recently Relevant to Health Maintenance [place] [address] [place] [address] AETNA MEDICARE HMO
--- OUTSIDE RECORDS SUMMARY | 2025-09-15 14:33 | XMS_ITS | Clinical Summary ---
Author Organization [facility] Address [address] [place] [address] Care Team Providers Care Lime Kiln Worker Name Role Phone Unavailable Primary Care [...] Payer (Ef fective 2002-Present) Name:Seema Delacruz Member ID:[id number] Relation to Subscriber:Self Name:Seema Delacruz Subscriber ID:[id number] Payer ID:[id number] Group ID:Not on file Type:Not on file Address: [address]
--- OUTSIDE RECORDS SUMMARY | 2025-09-15 14:33 | XMS_ITS | Clinical Summary ---
Author Organization Healthcare Address [address] [place] [address] Care Team Providers Care Gut Sorter Name Role Phone Faustino Amador MD Primary Care Provider + [phone] Allergies Active Allergy Reactions Criticality Noted Date [...] day. 10/10/19 Active Lancets (OneTouch Delica Plus Aahtwy54L) [facility] 07/11/20 Active Easy Comfort Pen Bradley 31G X 5 MM [facility] 12/11/19 Active HumuLIN 70/30 KWIKPEN (70-30) 100 [...] (FreeStyle Joelle 14 Day Sensor) [facility] 11/14/19 Active diclofenac (Voltaren) 75 MG EC [...] directed 10/29/19 24 Active ergocalciferol 1.25 MG (79440 UT) capsule Take 1 capsule every week by oral route for 90 days. 10/29/19 24 Active methocarbamol (Robaxin) 500 MG tablet 10/29/19 24 Active ondansetron ODT (Zofran-ODT) [address] 1 tablet every 4-6 hours by translingual route as needed. Active therapeutic multivitamin-re examiner als (Theragran-M) tablet Take 1 tablet [...] (12/16/2021): Added automatically from request for surgery [id number] Microalbuminuria 03/12/2020 Cervical radiculopathy 11/22/2018 Neck pain [...] (05/24/2022): Added automatically from request for surgery [id number] Family History Medical History Relation Name Comments [...] drink first t debra in the morning (EYE-CIRCULATION REPRESENTATIVE) to steady your nerves or to get [...] Health Maintenance Due Date Last Done Comments [facility]-Diabetes: Hemoglobin A1C 1970 [facility]-HIV Screening 1970 [...] of 2) 2019 [facility]-Depression Screening 11/12/2024 11/12/2023 [facility]-IDQTU-04 Vaccine (3 - season) 2025 04/07/2021, 03/17/2021 [facility]-Influenza Vaccine (#1) 2025 07/01/2019, [facility]-Breast Cancer Screening 11/09/2025 11/09/2023, 0 11/09/2023 [facility]-Pneumococcal Vaccine: 50+ Years (3 of 3 - PCV20 or PCV21) 07/26/2028 07/26/2023, 06/07/2016, 07/24/2015, Additional history exists [facility]-Obesity Intervention Completed 024, 05/19/2024, 04/14/2024, Additional history exists HPV Vaccines (No Doses Required) Completed [facility]-HIB Vaccines Aged Out No longer e [...] this topic Medical Devices Implanted Type Area Manager Child Device Identifier Shelf Expiration Date Model / Serial / Lot Pain Pump Pain Pump Right: Back Insurance [employer] BETTER [employer] MEDICAID AETNA MEDICARE [employer]NA MEDICARE Advance Directives * Full Code (Latest Code Status on File) Date Activated Date Inactivated Comments 05/24/2022 4:10 PM 05/26/2022 3:36 PM Question Answer Comments Patient has decision-making capacity? Yes Care Teams Gut Sorter Relationship Specialty Start Date End Date Faustino Amador MD [address] [place] [address] PCP - General 03/14/21
--- OUTSIDE RECORDS SUMMARY | 2025-09-15 14:33 | XMS_ITS | Referral Summary ---
Author Organization [facility] ([place], [place], [place], [place], [place]) Address [address] [place] [address] Care Team Providers Care Bankruptcy Paralegal Name Role Phone Unavailable Primary Care Provider [...]
== END 2025-09-15 23:59 | disposition home or self-care (01) ==
LOC: RT 14:31
PROVIDERS: PCP Nurse Practitioner; Visit Provider Nurse Practitioner
DX: R00.2 Palpitations (principal)
CPT/HCPCS: 93225; 93227

== ENCOUNTER 2025-09-16 15:17 | Outpatient (CLI) | payer MEDICARE, OTHER, SELFPAY ==
--- OUTSIDE RECORDS SUMMARY | 2025-09-16 16:23 | XMS_ITS | Continuity of Care Document ---
Author Organization [place] [facility], Main Office Address [address] [place] [address] Care Team Providers Care Skin Care Consultant Name Role Phone STEPHY YUSUF Primary Care [...] available Not available Hyperb julio Therap y-120 2025 10:30A M [facility] Not available Not available Not available Hyperb julio Therap y-120 2025 10:30A M [facility] Not available Not available Not available Hyperb julio Therap y-120 2025 10:30A M [facility] Not available Not available Not available Hyperb julio Therap y-120 2025 10:30A M [facility] Not available Not available Not available Hyperb julio Therap y-120 2025 10:30A M [facility] Not available Not available Not available Hyperb julio Therap y-120 2025 10:30A M [facility] Not available Not available Not available Hyperb julio Therap y-120 2025 10:30A M [facility] Not available Not available Not available Hyperb julio Therap y-120 2025 10:30A M [facility] Not available Not available Not available Hyperb julio Therap y-120 2025 10:30A M [facility] Not available Not available Not available Hyperb julio Therap y-120 2025 10:30A M [facility] Not available Not available Not available Lab None record ed. Referral None record ed. Procedures None record ed. Surgeries None record ed. Imaging None record ed. Medication Orders None record ed. Patient TargetsNo targets recorded. Patient Instructions Encounter Date Encounter Id Patient Instructions Last Modified By Organization Details Last Modified Time 06/25/2025 [id number] BACKGROUND: Seema Delacruz is a 55 y.o. [...] E11.621 ___ ___ Session Notes: Today's Date [id number] HBOT session 38 of 40 Next HBOT [id number] 30Jul - Patient cleared for 1st HBOT [...] antibiotics for an upper respiratory infection. Nicolasa MAITRE D 07Aug- Patient cleared for HBOT today. VS stable. PAtient had little trouble reaching pressure today, but had to come out of chamber early due to needing to use restroom. She managed to do 4 segs-118 minutes. [place].Tanner MAITRE D 08Aug - Patient cleared for HBOT today. VS stable. Patient completed full session with no problem. Antoinette Lau MAITRE D 11Aug - Patient cleared for HBOT today. [...] full session with no problem. Antoinette Lau MAITRE D 13Aug - Patient cleared for HBOT today. VS stable. Patient completed full session with no problem. Wound care to follow treatment today. Antoinette Lau APRN 14Aug - Patient cleared for HBOT today. VS stable. Patient completed full session with no problem. Antoinette Lau MAITRE D 15Aug - Patient cleared for HBOT today. [...] attempt to try again on Sunday. Nicolasa MAITRE D 18Aug - Patient cleared for HBOT today. VS stable. Patient completed full session with no problem. Antoinette aLu MAITRE D 19Aug - Patient deemed safe for HBOT today. VS stable. FSBS within range. Patient completed full session with no problem. Antoinette Lau MAITRE D 2015Aug - Patient cleared for HBOT today. [...] significant anxiety. Dressing change today per nursing. [facility] 25Aug - Patient deemed safe for HBOT [...] andcompleted full session free of problem. [facility] 29Aug - Cleared for HBOT his date and completed full session free of problem. Of note, this patient continues to smoke tobacco cigarettes. [facility] 02Sep - Patient deemed safe for HBOT [...] above 80 and was discharged with 92. [facility] 08Sep - Patient deemed safe for HBOT today. VS stable. Patient completed full session with no problem. [place].Jessica Lau APRN 10Sep - Patient deemed safe for HBOT today. VS stable. Patient completed full session with no problem. Antoinette Lau APRN 11Sep - Patient cleared for HBOT today. VS stable. Patient completed full session with no problem. [place].Jessica Lau MAITRE D 12Sep - Found safe for HBOT this date. Completed curtailed session free of problem. Session shortened to satisfy demand of ride provider. [facility] 15Sep - Patient cleared for HBOT today. [...] full session with no problem. Antoinette Lau MAITRE D Not available 06/25/2025 14:27:27 Reason for Referral None Reported. Problems Name Problem SNOMED Code Status Onset Date Resolution Date Notes Provider Name and Address Organization Details Recorded Time Upper respiratory infection 57388345 Active 2024 COLEMAN LAU, POT FIREMAN null, [place] - [facility] 12:18:40 Episodic migraine 5759550410434 06 Active 2024 COLEMANPATRICE LAU, POT FIREMAN null, [place] - [facility] 12:34:01 Type 2 diabetes mellitus 28097700 Active 2024 COLEMAN LAU POT FIREMAN null, [place] - [facility] 15:27:12 Refractory migraine with aura 082091314 Active 2024 COLEMAN LAU, POT FIREMAN null, [place] - [facility] 10:56:52 Recurrent acute frontal sinusitis Active 2024 COLEMAN LAU POT FIREMAN null, [place] - [facility] 12:47:05 Candidiasis of vagina 44435932 Active 2024 COLEMANPATRICE LAU POT FIREMAN null, [place] - [facility] 12:47:26 Acute upper respiratory infection 02584646 Active 2024 COLEMAN LAU POT FIREMAN null, [place] - [facility] 12:32:57 Problem Notes None recorded. Procedures Surgical History Date Name Laterality Status Provider Name and Address Organization Details Recorded Time 09/15/20 [facility] Therapy Treatment Form completed Carolyn luan [place] - [facility] 09/15/2025 12:48:40 09/14/20 [facility] Therapy Treatment Form completed COLEMAN LAU NP [place] - [facility] 09/14/2025 14:54:43 09/07/20 25 [facility] Therapy Treatment Form completed [facility] - [facility] 09/07/2025 12:38:58 08/31/20 25 [facility] Therapy Treatment Form completed [facility] - [facility] 08/31/2025 12:48:46 08/25/20 25 [facility] Therapy Treatment Form completed Carolyn sharp [place] - [facility] 08/25/2025 12:52:26 08/24/20 25 [facility] Therapy Treatment Form completed Carolyn roland [place] - [facility] 08/24/2025 12:53:43 08/17/20 25 [facility] Therapy Treatment Form completed Carolyn roland [facility] - [facility] 08/17/2025 13:02:48 08/14/20 25 [facility] Therapy Treatment Form completed Lisa Sosa CT - [facility] 08/14/2025 12:43:08 08/13/20 25 [facility] Therapy Treatment Form completed Carolyn roland [facility] - [facility] 08/13/2025 12:27:58 08/12/20 25 [facility] Therapy Treatment Form completed Carolyn roland CT - [facility] 08/12/2025 12:36:02 08/12/20 25 Wound completed COLEMAN LAU NP [place] - [facility] 08/12/2025 14:15:15 08/11/20 25 [facility] Therapy Treatment Form completed Carolyn roland CT - [facility] 08/11/2025 12:58:18 08/10/20 25 [facility] Therapy Treatment Form completed Carolyn roland CT - [facility] 08/10/2025 12:57:23 08/04/20 25 [facility] Therapy Treatment Form completed ABDOULAYE [facility] - [facility] 08/04/2025 13:51:50 08/03/20 25 [facility] Therapy Treatment Form completed ABDOULAYE [facility] - [facility] 08/03/2025 14:17:35 07/30/20 25 [facility] Therapy Treatment Form completed Carolyn roland CT - [facility] 07/30/2025 12:38:27 07/29/20 25 [facility] Therapy Treatment Form completed Carolyn roland CT - [facility] 07/29/2025 12:40:06 07/28/20 25 [facility] Therapy Treatment Form completed ABDOULAYE [facility] - [facility] 07/28/2025 13:56:37 07/27/20 25 [facility] Therapy Treatment Form completed ABDOULAYE [facility] - [facility] 07/27/2025 13:59:51 07/24/20 25 [facility] Therapy Treatment Form completed Manfred Shelton MD [place] - [facility] 07/24/2025 17:57:20 07/23/20 25 [facility] Therapy Treatment Form completed Carolyn roland CT - [facility] 07/23/2025 12:41:49 07/22/20 25 [facility] Therapy Treatment Form completed Carolyn roland CT - [facility] 07/22/2025 12:53:32 07/21/20 25 [facility] Therapy Treatment Form completed Carolyn roland CT - [facility] 07/21/2025 12:43:55 07/20/20 25 [facility] Therapy Treatment Form completed Carolyn roland CT - [facility] 07/20/2025 12:58:21 07/17/20 25 [facility] Therapy Treatment Form completed Lisa Sosa [place] - [facility] 07/17/2025 12:35:46 07/16/20 25 [facility] Therapy Treatment Form completed Frank Gage [place] - [facility] 07/16/2025 16:54:47 07/15/20 25 Wound completed COLEMAN LAU NP [place] - [facility] 07/15/2025 14:47:28 07/15/20 25 [facility] Therapy Treatment Form completed Carolyn roland CT - [facility] 07/15/2025 12:39:29 07/14/20 25 [facility] Therapy Treatment Form completed COLEMAN LAU NP [place] [facility] 07/14/2025 15:14:39 07/09/20 25 [facility] Therapy Treatment Form completed Carolyn roland CT - [facility] 07/09/2025 12:46:05 07/08/20 25 [facility] Therapy Treatment Form completed Carolyn roland CT - [facility] 07/08/2025 12:41:28 07/07/20 25 [facility] Therapy Treatment Form completed Manfred Shelton MD [place] - [facility] 07/08/2025 08:10:21 07/06/20 25 [facility] Therapy Treatment [...] [facility] Therapy Treatment Form completed [facility] 06/22/2025 12:49:55 [...] [facility] Therapy Treatment Form completed [facility] 06/15/2025 12:47:07 06/12/20 25 [facility] Therapy Treatment Form completed MD [facility] [place] - [facility] 06/12/2025 14:54:52 06/11/20 25 [facility] Therapy Treatment Form completed [facility] 06/11/2025 13:02:39 06/10/20 25 [facility] Therapy Treatment Form completed [facility] 06/10/2025 12:50:18 06/08/20 [...] Treatment Form completed [facility] [place] - [facility] 05/28/2025 13:02:44 [...] Treatment Form completed [facility] [place] - [facility] 05/26/2025 12:27:56 [...] Evelia Singh [place] - [facility] 05/19/2025 13:53:26 [...] Not available Not available Not available 04/23/2025 37103 3 RxNorm Luciana servin, [place]OLOR[place] - [facility] 14:25:27 1104 Avelox medicatio n Not available Not available Not available 04/23/2025 71903 6 RxNorm Luciana servin, [place] - [facility] 14:25:52 1105 metformin medicatio n other Not available low 04/23/20252023 6809 RxNorm GI issue s Luciana servin, [place] - [facility] 14:26:11 1253 Product containin g angiotens in-conver ting enzyme inhibitor (product) medicatio n cough moderate Not available 06/26/2025 22344 009 SNOMED Not Available [facility] - Nitronex 5 10:54:20 1254 metformin hydrochlo ride medicatio n Not available Not available Not available 06/26/2025 99973 3 RxNorm Not Available [facility] - Nitronex 5 10:54:20 1358 ceftriaxo ne medicatio n rash moderate Not available 07/15/2025 2193 RxNorm Not Available [facility] - Nitronex 10:18:57 1359 droperido l medicatio n dyspnea Not available Not available 07/15/2025 3648 RxNorm Not Available [facility] - Nitronex 10:18:57 1360 moxifloxa beck medicatio n rash moderate Not available 07/15/2025 74164 2 RxNorm Not Available [facility] - Nitronex 10:18:57 1461 moxifloxa beck hydrochlo ride medicatio n Not available Not available Not available 08/24/20252015 98672 0 RxNorm Not Available [facility] - Nitronex 04:35:37 Medications Name Sig Start Date Stop Date [...] Not Available Not Available No t Available Diflucan 200 mg tablet Take 1 tablet every other day by oral route for 6 days. 08/10 completed Not Available Not Available Not Available amoxicillin 875 mg-potassiu m clavulanate 125 mg tablet Take 1 tablet every 12 hours by oral route for 10 days. 08/14 completed Not Available Not Available Not Available hydroxyzine pamoate 25 mg capsule TAKE [...] rate Respiratory rate Body temperature Oxygen saturation Heart rate Respiratory rate Body temperature Oxygen saturation Systolic And Diastolic Systolic And Diastolic Provider Name and Address Organization Details Last Updated DateTime 73 /min 16 /min 98.2 [degF] 92 % 79 /min 16 /min 97.9 [degF] 96 % 162/73 mm[Hg] 131/73 mm[Hg] [facility] - [facility] 12:47:27 Social History None recorded. Functional Status [...] COLEMAN LAU NP Main Office [address] [address] 05/25/2025 10:54:17 05/25/2025 14:23:41 5071 COLEMAN LAU NP Main Office [address] [address] 05/26/2025 10:04:52 05/26/2025 13:22:24 5083 COLEMAN LAU NP Main Office [address] [address] 05/26/2025 16:38:48 05/26/2025 16:40:45 5087 COLEMAN LAU NP Main Office [address] [address] 05/27/2025 10:11:43 05/27/2025 13:22:20 5093 COLEMAN ABDOULAYE LAU Main Office [address] [place] [address] 05/27/2025 13:11:38 05/27/2025 13:19:10 5104 Manfred Shelton MD Main Office [address] [place] [address] 05/28/2025 10:14:13 05/29/2025 08:47:13 5117 Manfred Shelton MD Main Office [address] [place] [address] 05/29/2025 10:04:58 05/29/2025 17:43:48 5132 Manfred Shelton MD Main Office [address] [place] [address] 06/02/2025 10:25:50 06/02/2025 14:14:27 5149 Manfred Shelton MD Main Office [address] [place] [address] 06/03/2025 10:16:52 06/03/2025 14:45:20 5163 Manfred Shelton MD Main Office [address] [place] [address] 06/04/2025 10:31:23 06/04/2025 13:58:07 5173 Manfred Shelton MD Main Office [address] [place] [address] 06/04/2025 14:13:52 06/04/2025 14:25:08 5186 Manfred Shelton MD Main Office [address] [place] [address] 06/05/2025 10:55:07 06/05/2025 16:50:44 5202 Manfred Shelton MD Main Office [address] [place] [address] 06/08/2025 10:25:37 06/08/2025 14:39:12 5237 Manfred Shelton MD Main Office [address] [place] [address] 06/10/2025 10:19:13 06/10/2025 13:21:20 5255 Manfred Shelton MD Main Office [address] [place] [address] 06/11/2025 10:35:04 06/11/2025 14:11:07 5277 Manfred Shelton MD Main Office [address] [place] [address] 06/12/2025 10:59:45 06/12/2025 14:56:49 5293 Manfred Shelton MD Main Office [address] [place] [address] 06/15/2025 10:50:33 06/15/2025 13:14:21 5311 Manfred Shelton MD Main Office [address] [place] [address] 06/16/2025 10:14:56 06/16/2025 13:52:36 5329 Manfred Shelton MD Main Office [address] [place] [address] 06/17/2025 10:28:52 06/17/2025 13:18:56 5341 Manfred Shelton MD Main Office [address] [place] [address] 06/18/2025 10:16:09 06/18/2025 13:16:04 5358 Manfred Shelton MD Main Office [address] [place] [address] 06/19/2025 10:44:19 06/19/2025 14:15:39 5367 COLEMANPATRICE LAU NP Main Office [address] [place] [address] 06/22/2025 10:36:06 06/22/2025 14:32:28 5385 Manfred Shelton MD Main Office [address] [place] [address] 06/23/2025 10:18:15 06/23/2025 14:03:00 5400 Manfred Shelton MD Main Office [address] [place] [address] 06/24/2025 10:23:16 06/24/2025 13:37:08 5419 Manfred Shelton MD Main Office [address] [place] [address] 06/25/2025 10:19:36 06/25/2025 14:27:35 Health Concerns Section Related Observation LastModified by Organization Detai ls LastModified Time None Recorded Concern Status LastModified by Organization Details LastModified Time None Recorded Payers Encounter Date Sequence Insurance Name Policy Number Policy Gonzales Covered Member ID Gonzales Member ID Guarantor Name 06/25/2025 2 [employer] Seema Delacruz [id number] Seema Delacruz 06/25/2025 1 [employer] Seema Delacruz [id number] Seema Delacruz OBGyn Episode No OBEpisode recorded.
--- OUTSIDE RECORDS SUMMARY | 2025-09-16 16:23 | XMS_ITS | Continuity of Care Document ---
Author Organization [place] [facility], Main Office Address [address] [place] [address] Care Team Providers Care Match Up Worker Name Role Phone STEPHY YUSUF Primary Care Provider [phone] Assessment No assessment recorded. Plan of Treatment [...] Modified By Organization Details Last Modified Time 07/16/2025 [id number] BACKGROUND: Seema Delacruz is a 55 y.o. [...] E11.621 ___ ___ Session Notes: Today's Date 16Jul2025 HBOT session 51 of 60 Next HBOT [id number] 30Jul - Patient cleared for 1st HBOT today. VS stable, FSBG within range. PAtient had trouble clearing ears before reaching 1.5 SANTY, and we were only able to get to 1.45 ASNTY, then she started having left sided chest [...] antibiotics for an upper respiratory infection. Nicolasa TRACER CLERK 07Aug- Patient cleared for HBOT today. VS stable. PAtient had little trouble reaching pressure today, but had to come out of chamber early due to needing to use restroom. She managed to do 4 segs-118 minutes. [place].Tanner TRACER CLERK 08Aug - Patient cleared for HBOT today. VS stable. Patient completed full session with no problem. Antoinette Lau TRACER CLERK 11Aug - Patient cleared for HBOT today. [...] full session with no problem. Antoinette Lau TRACER CLERK 13Aug - Patient cleared for HBOT today. VS stable. Patient completed full session with no problem. Wound care to follow treatment today. Antoinette Lau APRN 14Aug - Patient cleared for HBOT today. VS stable. Patient completed full session with no problem. Antoinette Lau TRACER CLERK 15Aug - Patient cleared for HBOT today. [...] attempt to try again on Sunday. Nicolasa TRACER CLERK 18Aug - Patient cleared for HBOT today. VS stable. Patient completed full session with no problem. Antoinette Lau TRACER CLERK 19Aug - Patient deemed safe for HBOT today. VS stable. FSBS within range. Patient completed full session with no problem. Antoinette Lua APRN 2015Aug - Patient cleared for HBOT [...] significant anxiety. Dressing change today per nursing. [facility] 25Aug - Patient deemed safe for HBOT [...] date andcompleted full session free of problem. [facility] 29Aug - Cleared for HBOT his date and completed full session free of problem. Of note, this patient continues to smoke tobacco cigarettes. [facility] 02Sep - Patient deemed safe for HBOT [...] above 80 and was discharged with 92. [facility] 08Sep - Patient deemed safe for HBOT today. VS stable. Patient completed full session with no problem. [place].Jessica Lau APRN 10Sep - Patient deemed safe for HBOT today. VS stable. Patient completed full session with no problem. Antoinette Lau APRN 11Sep - Patient cleared for HBOT today. VS stable. Patient completed full session with no problem. [place].Jessica Lau TRACER CLERK 12Sep - Found safe for HBOT this date. Completed curtailed session free of problem. Session shortened to satisfy demand of ride provider. [facility] 15Sep - Patient cleared for [...] full session with no problem. Antoinette Lau TRACER CLERK 26Sep - Deemed safe for HBOT on this date and completed the full session uneventfully. [facility] 29Sep - Patient cleared for HBOT today. VS stable. Patient completed 3 Seg session with no problem. IsraelIlsa Lau TRACER CLERK 30Sep - Patient cleared for HBOT today. VS stable. Patient completed full session with no problem. Antoinette Lau TRACER CLERK 01Oct - Patient cleared for HBOT today. VS stable. Patient completed full session with no problem. Antoinette Lau TRACER CLERK 02Oct - Cleared for HBOT this date and completed full session free of problem. [facility] 03Oct - Deemed safe for HBOT today and completed her full session without problem. [facility] 06Oct - Found safe for HBOT this date and tolerated her session free of problem. [facility] 07Oct- Cleared for HBOT this date and completed the full session without problem. [facility] 08Oct - Glu on arrival marginal so given caloric intake first and then cleared for HBOT this day. Had no problem completing full session emerging at Glu 139. [facility] 09Oct - Deemed safe for HBOT today and completed full session without problem. [facility] 14Oct - Patient returns after being out ill. Cleared for HBOT today. VS stable. Patient completed full session with no problem. Antoinette Lau TRACER CLERK 15Oct - Patient cleared for HBOT today. VS stable. Patient completed full session with no problem. Antoinette Lau TRACER CLERK 16Oct - Patient cleared for HBOT today. VS stable. Patient completed full session with no problem. Antoinette Lau TRACER CLERK Not available 07/16/2025 14:20:41 Reason for Referral None Reported. Problems Name Problem SNOMED Code Status Onset Date Resolution Date Notes Provider Name and Address Organization Details Recorded Time Upper respiratory infection [id number] Active 2024 COLEMAN LAU NP null, [place] [facility] 12:18:40 Episodic migraine 0522443465913 Active 2024 COLEMAN LAU NP null, [place] [facility] 12:34:01 Type 2 diabetes mellitus 74409085 Active 2024 COLEMAN LAU NP null, [place] [facility] 15:27:12 Refractory migraine with aura 696557766 Active 2024 COLEMAN LAU NP null, [place] [facility] 10:56:52 Recurrent acute frontal sinusitis Active 2024 COLEMAN LAU NP null, [place] [facility] 12:47:05 Candidiasis of vagina 28281965 Active 2024 COLEMAN LAU NP null, [place] [facility] 12:47:26 Acute upper respiratory infection 18496719 Active 2024 COLEMAN LAU NP null, [place] [facility] 12:32:57 Problem Notes None recorded. Procedures Surgical History Date Name Laterality Status Provider Name and Address Organization Details Recorded Time 09/15/20 25 [facility] Therapy Treatment Form completed Carolyn luan MD - [facility] 09/15/2025 12:48:40 09/14/20 25 [facility] Therapy Treatment Form completed COLEMAN LAU NP [place] - [facility] 09/14/2025 14:54:43 09/07/20 25 [facility] Therapy Treatment Form completed [facility] - [facility] 09/07/2025 12:38:58 08/31/20 25 [facility] Therapy Treatment Form completed [facility] - [facility] 08/31/2025 12:48:46 08/25/20 25 [facility] Therapy Treatment Form completed [facility] - [facility] 08/25/2025 12:52:26 08/24/20 25 [facility] Therapy Treatment Form completed [facility] - [facility] 08/24/2025 12:53:43 08/17/20 25 [facility] Therapy Treatment Form completed [facility] - [facility] 08/17/2025 13:02:48 08/14/20 25 [facility] Therapy Treatment Form completed Lisa Sosa MD - [facility] 08/14/2025 12:43:08 08/13/20 25 [facility] Therapy Treatment Form completed [facility] - [facility] 08/13/2025 12:27:58 08/12/20 25 [facility] Therapy Treatment Form completed [facility] - [facility] 08/12/2025 12:36:02 08/12/20 25 Wound completed COLEMAN LAU NP [place] [facility] 08/12/2025 14:15:15 08/11/20 25 [facility] Therapy Treatment Form completed [facility] - [facility] 08/11/2025 12:58:18 08/10/20 25 [facility] Therapy Treatment Form completed [facility] - [facility] 08/10/2025 12:57:23 08/04/20 25 [facility] Therapy Treatment Form completed COLEMAN LAU NP [place] [facility] 08/04/2025 13:51:50 08/03/20 25 [facility] Therapy Treatment Form completed COLEMAN LAU NP [place] [facility] 08/03/2025 14:17:35 07/30/20 25 [facility] Therapy Treatment Form completed [facility] - [facility] 07/30/2025 12:38:27 07/29/20 25 [facility] Therapy Treatment Form completed [facility] - [facility] 07/29/2025 12:40:06 07/28/20 25 [facility] Therapy Treatment Form completed COLEMAN LAU NP [place] [facility] 07/28/2025 13:56:37 07/27/20 [facility] Therapy Treatment Form completed COLEMAN LAU NP [place] [facility] 07/27/2025 13:59:51 07/24/20 [facility] Therapy Treatment Form completed Manfred Shelton MD [place] [facility] 07/24/2025 17:57:20 07/23/20 25 [facility] Therapy Treatment Form completed [facility] - [facility] 07/23/2025 12:41:49 07/22/20 25 [facility] Therapy Treatment Form completed [facility] - [facility] 07/22/2025 12:53:32 07/21/20 25 [facility] Therapy Treatment Form completed [facility] - [facility] 07/21/2025 12:43:55 07/20/20 25 [facility] Therapy Treatment Form completed [facility] - [facility] 07/20/2025 12:58:21 07/17/20 [...] Care Therapy Treatment Form completed Carolyn roland MD - [facility] 07/15/2025 12:39:29 07/14/20 25 [facility] Therapy Treatment Form completed COLEMAN LAU NP [place] [facility] 07/14/2025 15:14:39 07/09/20 25 [facility] Therapy Treatment Form completed Carolyn roland MD - [facility] 07/09/2025 12:46:05 07/08/20 25 [facility] Therapy Treatment Form completed Carolyn roland MD - [facility] 07/08/2025 12:41:28 07/07/20 25 [facility] Therapy Treatment Form completed Manfred Shelton MD [place] [facility] 07/08/2025 08:10:21 07/06/20 25 [facility] Therapy Treatment Form completed Carolyn roland MD - [facility] 07/06/2025 13:06:29 07/03/20 [...] Care Therapy Treatment Form completed Carolyn roland MD - [facility] 06/25/2025 12:47:07 06/24/20 25 [facility] Therapy Treatment Form completed Carolyn roland MD - [facility] 06/24/2025 12:40:20 06/23/20 25 [facility] Therapy Treatment Form completed Carolyn luan MD - [facility] 06/23/2025 12:39:50 06/22/20 25 [facility] Therapy Treatment Form completed [facility] - [facility] 06/22/2025 12:49:55 06/19/20 25 [facility] Therapy Treatment Form completed Manfred Shelton MD [place] [facility] 06/19/2025 14:13:24 06/18/20 25 [facility] Therapy Treatment Form completed COLEMAN LAU NP [place] [facility] 06/18/2025 13:17:34 06/17/20 25 [facility] Therapy Treatment Form completed [facility] - [facility] 06/17/2025 12:29:15 06/16/20 25 [facility] Therapy Treatment Form completed [facility] - [facility] 06/16/2025 12:45:53 06/15/20 25 [facility] Therapy Treatment Form completed [facility] - [facility] 06/15/2025 12:47:07 06/12/20 25 [facility] Therapy Treatment Form completed Manfred Shelton MD [place] - [facility] 06/12/2025 14:54:52 06/11/20 25 [facility] Therapy Treatment Form completed [facility] - [facility] 06/11/2025 13:02:39 06/10/20 25 [facility] Therapy Treatment Form completed [facility] - [facility] 06/10/2025 12:50:18 06/08/20 25 [facility] Therapy Treatment Form completed Carolyn luan MD - [facility] 06/08/2025 12:56:07 06/05/20 25 [facility] Therapy Treatment Form completed Evelia BERNAL - [facility] 06/05/2025 14:28:16 [...] Care Therapy Treatment Form completed [facility] [place] [facility] 05/29/2025 12:25:31 05/28/20 25 [facility] Therapy Treatment Form completed [facility] [place] [facility] 05/28/2025 13:02:44 05/27/20 25 Wound completed COLEMAN LAU NP [place] [facility] 05/27/2025 13:18:22 05/27/20 25 [facility] Therapy Treatment Form completed Carolyn luan MD - [facility] 05/27/2025 12:50:01 05/26/20 25 Nurse Note completed Luciana Noriega [place] [facility] 05/26/2025 16:40:42 05/26/20 25 [facility] Therapy Treatment Form completed Carolyn luan MD - [facility] 05/26/2025 12:27:56 05/25/20 25 [facility] Therapy Treatment Form completed Carolyn luan MD - [facility] 05/25/2025 13:12:32 05/22/20 25 [facility] Therapy Treatment Form completed Carolyn luan [place] [facility] 05/22/2025 12:33:28 05/21/20 25 [facility] Therapy Treatment Form completed Carolyn luan MD - [facility] 05/21/2025 12:47:49 05/20/20 [...] Care Therapy Treatment Form completed Carolyn roland MD - [facility] 05/18/2025 13:22:00 05/15/20 [...] Not available Not available Not available 04/23/2025 50767 3 RxNorm Luciana servin, [place] - [facility] 14:25:27 1104 Avelox medicatio n Not available Not available Not available 04/23/2025 72645 6 RxNorm Luciana servin, [place] - [facility] 14:25:52 1105 metformin medicatio n other Not available [facility] 04/23/20252023 6809 RxNorm GI issue s Luciana servin, [place] - [facility] 14:26:11 1253 Product containin g angiotens in-conver ting enzyme inhibitor (product) medicatio n cough moderate Not available 06/26/2025 15474 009 SNOMED Not Available taisha - [employer] - prod 5 10:54:20 1254 metformin hydrochlo ride medicatio n Not available Not available Not available 06/26/2025 26965 3 RxNorm Not Available taisha - [employer] - prod 5 10:54:20 1358 ceftriaxo ne medicatio n rash moderate Not available 07/15/2025 2193 RxNorm Not Available taisha - [employer] - prod 5 10:18:57 1359 droperido l medicatio n dyspnea Not available Not available 07/15/2025 3648 RxNorm Not Available [employer] - prod 10:18:57 1360 moxifloxa beck medicatio n rash moderate Not available 07/15/2025 71521 2 RxNorm Not Available [employer] - prod 5 10:18:57 1461 moxifloxa beck hydrochlo ride medicatio n Not available Not available Not available 08/24/20252015 94948 0 RxNorm Not Available taisha [employer] - prod 04:35:37 Medications Name Sig Start Date Stop [...] Address Organization Details Last Updated DateTime 5 88 /min 16 /min 98.6 [degF] 95 % 84 /min 16 /min 98.1 [degF] 99 % 182/80 mm[Hg] 145/70 mm[Hg] Carolyn roland [place] [facility] 5 12:47:42 Social History None recorded. Functional Status None [...] ICD10 Code Diagnosis IMO Codes Diagnosis Note [id number] Manfred Shelton MD Main Office [address] [place] [address] 06/16/2025 10:14:56 06/16/2025 13:52:36 [id number] Manfred Shelton MD Main Office [address] [place] [address] 06/17/2025 10:28:52 06/17/2025 13:18:56 [id number] Manfred Shelton MD Main Office [address] [place] [address] 06/18/2025 10:16:09 06/18/2025 13:16:04 [id number] Manfred Shelton MD Main Office [address] [place] [address] 06/19/2025 10:44:19 06/19/2025 14:15:39 [id number] COLEMAN LAU NP Main Office [address] [place] [address] 06/22/2025 10:36:06 06/22/2025 14:32:28 [id number] Manfred Shelton MD Main Office [address] [place] [address] 06/23/2025 10:18:15 06/23/2025 14:03:00 [id number] Manfred Shelton MD Main Office [address] [place] [address] 06/24/2025 10:23:16 06/24/2025 13:37:08 [id number] Manfred Shelton MD Main Office [address] [place] [address] 06/25/2025 10:19:36 06/25/2025 14:27:35 [id number] Manfred Shelton MD Main Office [address] [place] [address] 06/26/2025 10:52:38 06/26/2025 16:27:47 [id number] Manfred Shleton MD Main Office [address] [place] [address] 06/29/2025 10:44:14 06/29/2025 13:39:12 [id number] Manfred Shelton MD Main Office [address] [place] [address] 06/30/2025 10:42:21 06/30/2025 13:46:39 [id number] Manfred Shelton MD Main Office [address] [place] [address] 07/01/2025 10:49:18 07/01/2025 13:25:24 [id number] Manfred Shelton MD Main Office [address] [place] [address] 07/02/2025 10:15:06 07/03/2025 07:21:23 [id number] Manfred Shelton MD Main Office [address] [place] [address] 07/03/2025 10:50:33 07/03/2025 17:53:35 [id number] Manfred Shelton MD Main Office [address] [place] [address] 07/06/2025 10:54:52 07/06/2025 14:37:01 5575 Manfred Shelton MD Main Office [address] [place] [address] 07/07/2025 10:14:11 07/08/2025 08:12:24 [id number] Manfred Shelton MD Main Office [address] [place] [address] 07/08/2025 10:22:23 07/08/2025 19:57:51 [id number] Manfred Shelton MD Main Office [address] [place] [address] 07/09/2025 10:23:51 07/09/2025 16:04:46 [id number] Manfred Shelton MD Main Office [address] [place] [address] 07/14/2025 10:06:05 07/14/2025 15:15:47 [id number] Manfred Shelton MD Main Office [address] [place] [address] 07/15/2025 10:17:40 07/15/2025 13:26:46 [id number] Manfred Shelton MD Main Office [address] [place] [address] 07/15/2025 14:45:53 07/15/2025 14:48:12 [id number] Manfred Shelton MD Main Office [address],[facility] [address] [place] [address] 07/16/2025 10:18:19 07/16/2025 14:20:47 Health Concerns Section Related Observation LastModified by Organization Detai ls LastModified Time None Recorded Concern Status LastModified by Organization Details LastModified Time None Recorded Payers Encounter Date Sequence Insurance Name Policy Number Policy Gonzales Covered Member ID Gonzales Member ID Guarantor Name 07/16/2025 2 [employer] Seema Delacruz [id number] Seema Delacruz 07/16/2025 1 [employer] Seema Delacruz [id number] Seema Delacruz OBGyn Episode No OBEpisode recorded.
--- OUTSIDE RECORDS SUMMARY | 2025-09-16 16:24 | XMS_ITS | Clinical Summary ---
Author Organization [facility] ([place], [place], [place], [place], [place]) Address [address] [place] [id number] Care Team Providers Care Parcel Carrier Name Role Phone Unavailable Primary Care Provider [...]
--- OUTSIDE RECORDS SUMMARY | 2025-09-16 16:24 | XMS_ITS | Continuity of Care Document ---
Author Organization [place] [facility], Main Office Address [address] [place] [address] Care Team Providers Care Java Web Services Developer Name Role Phone STEPHY YUSUF Primary Care Provider [phone] Assessment No assessment recorded. Plan of Treatment [...] Modified By Organization Details Last Modified Time 07/17/2025 5719 BACKGROUND: Seema Delacruz is a 55 y.o. [...] E11.621 ___ ___ Session Notes: Today's Date 17Jul2025 HBOT session 52 of 60 Next HBOT [id number] 30Jul - Patient cleared for 1st HBOT [...] antibiotics for an upper respiratory infection. Nicolasa TAR POT MAN 07Aug- Patient cleared for HBOT today. VS stable. PAtient had little trouble reaching pressure today, but had to come out of chamber early due to needing to use restroom. She managed to do 4 segs-118 minutes. [place].Tanner TAR POT MAN 08Aug - Patient cleared for HBOT today. VS stable. Patient completed full session with no problem. Antoinette Lau TAR POT MAN 11Aug - Patient cleared for HBOT today. [...] full session with no problem. Antoinette Lau TAR POT MAN 13Aug - Patient cleared for HBOT today. VS stable. Patient completed full session with no problem. Wound care to follow treatment today. Antoinette Lau APRN 14Aug - Patient cleared for HBOT today. VS stable. Patient completed full session with no problem. Antoinette Lau TAR [employer] MAN 15Aug - Patient cleared for HBOT today. [...] attempt to try again on Sunday. Nicolasa TAR [employer] MAN 18Aug - Patient cleared for HBOT today. VS stable. Patient completed full session with no problem. Antoinette Lau TAR POT MAN 19Aug - Patient deemed safe for HBOT [...] significant anxiety. Dressing change today per nursing. [facility] 25Aug - Patient deemed safe for HBOT [...] andcompleted full session free of problem. [facility] 29Aug - Cleared for HBOT his date and completed full session free of problem. Of note, this patient continues to smoke tobacco cigarettes. [facility] 02Sep - Patient deemed safe for HBOT [...] above 80 and was discharged with 92. [facility] 08Sep - Patient deemed safe for HBOT today. VS stable. Patient completed full session with no problem. [place].Jessica Lau APRN 10Sep - Patient deemed safe for HBOT today. VS stable. Patient completed full session with no problem. Antoinette Lau APRN 11Sep - Patient cleared for HBOT today. VS stable. Patient completed full session with no problem. [place].Jessica Lau TAR [employer] 12Sep - Found safe for HBOT this date. Completed curtailed session free of problem. Session shortened to satisfy demand of ride provider. [facility] 15Sep - Patient cleared for HBOT today. [...] full session with no problem. [place].MonicaDeepali Lau TAR POT MAN 26Sep - Deemed safe for HBOT on this date and completed the full session uneventfully. [facility] 29Sep - Patient cleared for HBOT today. VS stable. Patient completed 3 Seg session with no problem. [place].MonicaDeepali Lau TAR POT MAN 30Sep - Patient cleared for HBOT today. VS stable. Patient completed full session with no problem. [place].MonicaDeepali Lau TAR POT MAN 01Oct - Patient cleared for HBOT today. VS stable. Patient completed full session with no problem. [place].MonicaDeepali Lau TAR POT MAN 02Oct - Cleared for HBOT this date and completed full session free of problem. [facility] 03Oct - Deemed safe for HBOT today and completed her full session without problem. [facility] 06Oct - Found safe for HBOT this date and tolerated her session free of problem. [facility] 07Oct- Cleared for HBOT this date and completed the full session without problem. [facility] 08Oct - Glu on arrival marginal so given caloric intake first and then cleared for HBOT this day. Had no problem completing full session emerging at Glu 139. [facility] 09Oct - Deemed safe for HBOT today and completed full session without problem. [facility] 14Oct - Patient returns after being out ill. Cleared for HBOT today. VS stable. Patient completed full session with no problem. [place].Jessica Lau TAR [employer] 15Oct - Patient cleared for HBOT today. VS stable. Patient completed full session with no problem. [place].MonicaDeepali Lau TAR POT MAN 16Oct - Patient cleared for HBOT today. VS stable. Patient completed full session with no problem. [place].Jessica Lau TAR POT MAN 17Oct - Patient cleared for HBOT today. VS stable. Patient completed full session with no problem. IsraelIlsa Lau TAR POT MAN Not available 07/17/2025 14:10:29 Reason for Referral None Reported. Problems Name Problem SNOMED Code Status Onset Date Resolution Date Notes Provider Name and Address Organization Details Recorded Time Upper respiratory infection 73406932 Active 2024 ABDOULAYE AHQ, [place] [facility] 5 12:18:40 Episodic migraine 4003390657747 06 Active 2024 COLEMAN LAU NP null, [place] - [facility] 12:34:01 Type 2 diabetes mellitus 63423656 Active 2024 COLEMAN LAU NP null, [place] - [facility] 15:27:12 Refractory migraine with aura 901947106 Active 2024 COLEMAN LAU NP null, [place] [facility] 10:56:52 Recurrent acute frontal sinusitis Active 2024 COLEMAN LAU NP null, [place] [facility] 12:47:05 Candidiasis of vagina 82477252 Active 2024 COLEMAN LAU NP null, [place] [facility] 12:47:26 Acute upper respiratory infection 58432043 Active 2024 COLEMAN LAU NP null, [place] [facility] 12:32:57 Problem Notes None recorded. Procedures Surgical History Date Name Laterality Status Provider Name and Address Organization Details Recorded Time 09/15/20 [facility] Therapy Treatment Form completed Carolyn roland [place] - [facility] 09/15/2025 12:48:40 09/14/20 25 [facility] Therapy Treatment Form completed COLEMAN LAU NP [place] - [facility] 09/14/2025 14:54:43 09/07/20 25 [facility] Therapy Treatment Form completed [facility] - [facility] 09/07/2025 12:38:58 08/31/20 25 [facility] Therapy Treatment Form completed Carolyn luan [place] - [facility] 08/31/2025 12:48:46 08/25/20 25 [facility] Therapy Treatment Form completed Carolyn luan [place] - [facility] 08/25/2025 12:52:26 08/24/20 25 [facility] Therapy Treatment Form completed Carolyn luan [place] - [facility] 08/24/2025 12:53:43 08/17/20 25 [facility] Therapy Treatment Form completed [facility] - [facility] 08/17/2025 13:02:48 08/14/20 25 [facility] Therapy Treatment Form completed Lisa Sosa [place] - [facility] 08/14/2025 12:43:08 08/13/20 25 [facility] Therapy Treatment Form completed Carolyn roland [place] - [facility] 08/13/2025 12:27:58 11/12/20 25 [facility] Therapy Treatment Form completed Carolyn roland [place] - [facility] 08/12/2025 12:36:02 08/12/20 25 Wound completed COLEMAN LAU NP [place] - [facility] 08/12/2025 14:15:15 08/11/20 25 [facility] Therapy Treatment Form completed [facility] - [facility] 08/11/2025 12:58:18 08/10/20 25 [facility] Therapy Treatment Form completed [facility] - [facility] 08/10/2025 12:57:23 08/04/20 25 [facility] Therapy Treatment Form completed COLEMAN LAU NP [place] [facility] 08/04/2025 13:51:50 08/03/20 [facility] Therapy Treatment Form completed COLEMAN LAU NP [place] [facility] 08/03/2025 14:17:35 07/30/20 25 [facility] Therapy Treatment Form completed [facility] - [facility] 07/30/2025 12:38:27 07/29/20 25 [facility] Therapy Treatment Form completed [facility] - [facility] 07/29/2025 12:40:06 07/28/20 [...] [facility] Therapy Treatment Form completed [facility] - [facility] 07/23/2025 12:41:49 07/22/20 25 [facility] Therapy Treatment Form completed [facility] - [facility] 07/22/2025 12:53:32 07/21/20 25 [facility] Therapy Treatment Form completed [facility] - [facility] 07/21/2025 12:43:55 07/20/20 25 [facility] Therapy Treatment Form completed [facility] - [facility] 07/20/2025 12:58:21 07/17/20 [...] Carolyn roland [place] - [facility] 07/15/2025 12:39:29 07/14/20 25 [facility] Therapy Treatment Form completed COLEMAN LAU NP [place] [facility] 07/14/2025 15:14:39 07/09/20 25 [facility] Therapy Treatment Form completed Carolyn roland [place] - [facility] 07/09/2025 12:46:05 07/08/20 25 [facility] Therapy Treatment Form completed Carolyn roland [place] - [facility] 07/08/2025 12:41:28 07/07/20 25 [facility] Therapy Treatment Form completed Manfred Shelton MD [place] - [facility] 07/08/2025 08:10:21 07/06/20 25 [facility] Therapy Treatment Form completed Carolyn roland [place] - [facility] 07/06/2025 13:06:29 07/03/20 [...] Carolyn roland [place] [facility] 06/29/2025 13:24:58 06/26/20 25 [facility] Therapy Treatment Form completed Manfred Shelton MD [place] - [facility] 06/26/2025 16:57:55 06/25/20 25 [facility] Therapy Treatment Form completed Carolyn roland [place] - [facility] 06/25/2025 12:47:07 06/24/20 25 [facility] Therapy Treatment Form completed [facility] - [facility] 06/24/2025 12:40:20 06/23/20 25 [facility] Therapy Treatment Form completed [facility] - [facility] 06/23/2025 12:39:50 06/22/20 25 [facility] Therapy Treatment Form completed [facility] - [facility] 06/22/2025 12:49:55 06/19/20 25 [facility] Therapy Treatment Form completed Manfred Shelton MD [place] [facility] 06/19/2025 14:13:24 06/18/20 25 [facility] Therapy Treatment Form completed COLEMAN LAU NP [place] [facility] 06/18/2025 13:17:34 06/17/20 25 [facility] Therapy Treatment Form completed [facility] - [facility] 06/17/2025 12:29:15 06/16/20 25 [facility] Therapy Treatment Form completed [facility] - [facility] 06/16/2025 12:45:53 06/15/20 25 [facility] Therapy Treatment Form completed [facility] - [facility] 06/15/2025 12:47:07 06/12/20 25 [facility] Therapy Treatment Form completed Manfred Shelton [place] - [facility] 06/12/2025 14:54:52 06/11/20 25 [facility] Therapy Treatment Form completed [facility] - [facility] 06/11/2025 13:02:39 06/10/20 25 [facility] Therapy Treatment Form completed [facility] - [facility] 06/10/2025 12:50:18 06/08/20 25 [facility] Therapy Treatment Form completed [facility] - [facility] 06/08/2025 12:56:07 06/05/20 [...] Carolyn roland [place] [facility] 06/02/2025 13:09:37 05/29/20 25 [facility] Therapy Treatment Form completed Carolyn roland [place] [facility] 05/29/2025 12:25:31 05/28/20 25 [facility] Therapy Treatment Form completed Carolyn roland [place] [facility] 05/28/2025 13:02:44 05/27/20 25 Wound completed COLEMAN LAU NP [place] [facility] 05/27/2025 13:18:22 05/27/20 25 [facility] Therapy Treatment Form completed Carolyn roland [place] - [facility] 05/27/2025 12:50:01 05/26/20 25 Nurse Note completed Luciana Noriega [place] [facility] 05/26/2025 16:40:42 05/26/20 25 [facility] Therapy Treatment Form completed Carolyn roland [place] [facility] 05/26/2025 12:27:56 05/25/20 25 [facility] Therapy Treatment Form completed Carolyn roland [place] [facility] 05/25/2025 13:12:32 05/22/20 25 [facility] Therapy Treatment Form completed Carolyn roland [place] [facility] 05/22/2025 12:33:28 05/21/20 25 [facility] Therapy Treatment Form completed Carolyn roland [place] [facility] 05/21/2025 12:47:49 05/20/20 [...] Carolyn roland [place] [facility] 05/18/2025 13:22:00 05/15/20 [...] Care 05/14/2025 13:46:28 05/13/20 25 Wound completed CLOEMAN LAU NP [place] [facility] [...] Not available Not available Not available 04/23/2025 86566 3 RxNorm Luciana esrvin, [place] - [facility] 14:25:27 1104 Avelox medicatio n Not available Not available Not available 04/23/2025 79713 6 RxNorm [place] - [facility] 14:25:52 1105 metformin medicatio n other Not available low 04/23/20252023 6809 RxNorm GI issue s Luciana servin [place] - [facility] 14:26:11 1253 Product containin g angiotens in-conver ting enzyme inhibitor (product) medicatio n cough moderate Not available 06/26/2025 33686 009 SNOMED Not Available taisha - [employer] - prod 5 10:54:20 1254 metformin hydrochlo ride medicatio n Not available Not available Not available 06/26/2025 43889 3 RxNorm Not Available taisha - [employer] - prod 5 10:54:20 1358 ceftriaxo ne medicatio n rash moderate Not available 07/15/2025 2193 RxNorm Not Available taisha - [employer] - prod 10:18:57 1359 droperido l medicatio n dyspnea Not available Not available 07/15/2025 3648 RxNorm Not Available [employer] 10:18:57 1360 moxifloxa beck medicatio n rash moderate Not available 07/15/2025 01157 2 RxNorm Not Available [employer] - [employer] 10:18:57 1461 moxifloxa beck hydrochlo ride medicatio n Not available Not available Not available 08/24/20252015 55208 0 RxNorm Not Available [employer] - [employer] 04:35:37 Medications Name Sig Start Date Stop [...] Body temperature Oxygen saturation Systolic And Diastolic Provider Name and Address Organization Details Last Updated DateTime 5 77 /min 16 /min 98.4 [degF] 96 % 161/75 mm[Hg] Paula Licea [place] [facility] 5 10:30:42 Date Recorded Heart rate Respiratory rate Body temperature Oxygen saturation Systolic And Diastolic Provider Name and Address Organization Details Last Updated DateTime 5 74 /min 16 /min 96.8 [degF] 92 % 178/85 mm[Hg] Lisa Sosa [place] [facility] 12:37:01 Social History None recorded. Functional Status None [...] ICD10 Code Diagnosis IMO Codes Diagnosis Note [id number] Mnafred Shelton MD Main Office [address] [place] [address] 06/17/2025 10:28:52 06/17/2025 13:18:56 [id number] Manfred Shelton MD Main Office [address] [place] [address] 06/18/2025 10:16:09 06/18/2025 13:16:04 [id number] Manfred Shelton MD Main Office [address] [place] [address] 06/19/2025 10:44:19 06/19/2025 14:15:39 [id number] COLEMAN LAU NP Main Office [address] [place] [address] 06/22/2025 10:36:06 06/22/2025 14:32:28 [id number] Manfred Shelton MD Main Office [address] [place] [address] 06/23/2025 10:18:15 06/23/2025 14:03:00 [id number] Manfred Shelton MD Main Office [address] [place] [address] 06/24/2025 10:23:16 06/24/2025 13:37:08 [id number] Manfred Shelton MD Main Office [address] [place] [address] 06/25/2025 10:19:36 06/25/2025 14:27:35 [id number] Manfred Shelton MD Main Office [address] [place] [address] 06/26/2025 10:52:38 06/26/2025 16:27:47 [id number] Manfred Shelton MD Main Office [address] [place] [address] 06/29/2025 10:44:14 06/29/2025 13:39:12 [id number] Manfred Shelton MD Main Office [address] [place] [address] 06/30/2025 10:42:21 06/30/2025 13:46:39 [id number] Manfred Shelton MD Main Office [address] [place] [address] 07/01/2025 10:49:18 07/01/2025 13:25:24 [id number] Manfred Shelton MD Main Office [address] [place] [address] 07/02/2025 10:15:06 07/03/2025 07:21:23 [id number] Manfred Shelton MD Main Office [address] [place] [address] 07/03/2025 10:50:33 07/03/2025 17:53:35 [id number] Manfred Shelton MD Main Office [address] [place] [address] 07/06/2025 10:54:52 07/06/2025 14:37:01 [id number] Manfred Shelton MD Main Office [address] [place] [address] 07/07/2025 10:14:11 07/08/2025 08:12:24 [id number] Manfred Shleton MD Main Office [address] [place] [address] 07/08/2025 10:22:23 07/08/2025 19:57:51 [id number] Manfred Shelton MD Main Office [address] [place] [address] 07/09/2025 10:23:51 07/09/2025 16:04:46 [id number] Manfred Shelton MD Main Office [address] [place] [address] 07/14/2025 10:06:05 07/14/2025 15:15:47 [id number] Manfred Shelton MD Main Office [address] [place] [address] 07/15/2025 10:17:40 07/15/2025 13:26:46 [id number] Manfred Shelton MD Main Office [address] [place] [address] 07/15/2025 14:45:53 07/15/2025 14:48:12 [id number] Manfred Shelton MD Main Office [address] [place] [address] 07/16/2025 10:18:19 07/16/2025 14:20:47 [id number] Manfred Shelton MD Main Office [address] [place] [address] 07/17/2025 10:06:47 07/17/2025 14:10:36 Refractory migraine with aura 895206338 G43.223 [id number] Health Concerns Section Related Observation LastModified by Organization Detai ls LastModified Time None Recorded Concern Status LastModified by Organization Details LastModified Time None Recorded Payers Encounter Date Sequence Insurance Name Policy Number Policy Gonzales Covered Member ID Gonzales Member ID Guarantor Name 07/17/2025 2 [employer] Seema Delacruz [id number] Seema Delacruz 07/17/2025 1 [employer] Seema Delacruz [id number] Seema Delacruz OBGyn Episode No OBEpisode recorded.
--- OUTSIDE RECORDS SUMMARY | 2025-09-16 16:24 | XMS_ITS | Continuity of Care Document ---
Author Organization [place] [facility], Main Office Address [address] [place] [address] Care Team Providers Care Classroom Paraprofessional Name Role Phone STEPHY YUSUF Primary Care Provider [phone] Assessment No assessment recorded. Plan of Treatment [...] available Not available Hyperb juloi Therap y-120 2025 10:30A M [facility] [...] Modified By Organization Details Last Modified Time 08/10/2025 6000 BACKGROUND: Seema Delacruz is a 55 y.o. [...] Diagnosis: L97.512, E11.621 Session Notes: Today's Date 10Aug2025 HBOT session 64 of 80 Next HBOT 11Aug2025 30Jul - Patient cleared for 1st HBOT [...] antibiotics for an upper respiratory infection. Nicolasa DANCE CHOREOGRAPHER 07Aug- Patient cleared for HBOT today. VS stable. PAtient had little trouble reaching pressure today, but had to come out of chamber early due to needing to use restroom. She managed to do 4 segs-118 minutes. [place].Tanner DANCE CHOREOGRAPHER 08Aug - Patient cleared for HBOT today. VS stable. Patient completed full session with no problem. Antoinette Lau DANCE CHOREOGRAPHER 11Aug - Patient cleared for HBOT today. [...] full session with no problem. Antoinette Lau DANCE CHOREOGRAPHER 13Aug - Patient cleared for HBOT today. VS stable. Patient completed full session with no problem. Wound care to follow treatment today. Antoinette Lau APRN 14Aug - Patient cleared for HBOT today. VS stable. Patient completed full session with no problem. Antoinette Lau DANCE CHOREOGRAPHER 15Aug - Patient cleared for HBOT today. [...] attempt to try again on Sunday. Nicolasa DANCE CHOREOGRAPHER 18Aug - Patient cleared for HBOT today. VS stable. Patient completed full session with no problem. Antoinette Lau DANCE CHOREOGRAPHER 19Aug - Patient deemed safe for HBOT [...] significant anxiety. Dressing change today per nursing. [facility] 25Aug - Patient deemed safe for HBOT [...] date andcompleted full session free of problem. [facility] 29Aug - Cleared for HBOT his date and completed full session free of problem. Of note, this patient continues to smoke tobacco cigarettes. [facility] 02Sep - Patient deemed safe for HBOT [...] about 15/20 minutes before getting up. Antoinette Lua APRN 05Sep - Found safe for HBOT this date and completed full session with no problem. However, on emerging her Dexcom read 62 for which she was symptom-free. Kept under observation until yuko above 80 and was discharged with 92. [facility] 08Sep - Patient deemed safe for HBOT today. VS stable. Patient completed full session with no problem. [place].Jessica Lau APRN 10Sep - Patient deemed safe for HBOT today. VS stable. Patient completed full session with no problem. Antoinette Lau APRN 11Sep - Patient cleared for HBOT today. VS stable. Patient completed full session with no problem. Israel.Jessica Lau DANCE CHOREOGRAPHER 12Sep - Found safe for HBOT this date. Completed curtailed session free of problem. Session shortened to satisfy demand of ride provider. [facility] 15Sep - Patient cleared for HBOT today. [...] full session with no problem. IsraelIlsa Lau DANCE CHOREOGRAPHER 26Sep - Deemed safe for HBOT on this date and completed the full session uneventfully. [facility] 29Sep - Patient cleared for HBOT today. VS stable. Patient completed 3 Seg session with no problem. M.ADeepali Lau DANCE CHOREOGRAPHER 30Sep - Patient cleared for HBOT today. VS stable. Patient completed full session with no problem. M.Jessica Lau DANCE CHOREOGRAPHER 01Oct - Patient cleared for HBOT today. VS stable. Patient completed full session with no problem. M.Jessica Lau DANCE CHOREOGRAPHER 02Oct - Cleared for HBOT this date and completed full session free of problem. [facility] 03Oct - Deemed safe for HBOT today and completed her full session without problem. [facility] 06Oct - Found safe for HBOT this date and tolerated her session free of problem. [facility] 07Oct- Cleared for HBOT this date and completed the full session without problem. [facility] 08Oct - Glu on arrival marginal so given caloric intake first and then cleared for HBOT this day. Had no problem completing full session emerging at Glu 139. [facility] 09Oct - Deemed safe for HBOT today and completed full session without problem. [facility] 14Oct - Patient returns after being out ill. Cleared for HBOT today. VS stable. Patient completed full session with no problem. [place].Jessica Lau DANCE CHOREOGRAPHER 15Oct - Patient cleared for HBOT today. VS stable. Patient completed full session with no problem. M.Jessica Lau DANCE CHOREOGRAPHER 16Oct - Patient cleared for HBOT today. VS stable. Patient completed full session with no problem. M.Jessica Lau DANCE CHOREOGRAPHER 17Oct - Patient cleared for HBOT today. VS stable. Patient completed full session with no problem. [place].Jessica Lau DANCE CHOREOGRAPHER 20Oct - Patient an hour late today due to transportation company. She can only do an hour, or she will not have a ride back home. Cleared for HBOT, VS stable. Finished 1 hour session with no issues or complaints. M.Tanner DANCE CHOREOGRAPHER 21Oct - Patient cleared for HBOT today. VS stable. Patient completed full session with no problem. M.ADeepali Lau DANCE CHOREOGRAPHER 22Oct - Patient cleared for HBOT today. VS stable. Patient completed full session with no problem. M.Jessica Lau DANCE CHOREOGRAPHER 23Oct - Patient cleared for HBOT today. VS stable. Patient completed full session with no problem. Antoinette Lau APRN 24Oct - Deemed safe for HBOT this date and did complete full session without problem. [facility] 27Oct - Patient cleared for HBOT today. VS stable. show. Pt has no complaints of any vision changes but did have some complaints before tx of some sinus issues that did end up affecting her in the chamber. Left ear started hurting at about 1.5 SANTY, decreased pressure to allow ears to level out before trying to reach 2.0 SANTY. Once pt said the pressure was starting to ease up, started slowly raising pressure again and pt was able to reach 2.0 SANTY with no further issues. Patient completed full session with no other problem. Antoinette Lau APRN 28Oct - Patient cleared for HBOT today, VS stable. PAtient still having sinus pressure today, used afrin prior to going into chamber. She started having pain t 1.2 SANTY pt had extreme pain in her sinus area and ears, immediately decreased pressure to hopefully allow some relief, pt said she was still hurting but it was better. come out of the chamber or attempt to raise the pressure slowly to reach at least 1.5 SANTY. She didn't want to come out, so slowly raised pressure and reached 1.5. At about 1110, pt said she was feeling better and was able to reach 1.75 SANTY. She tolerated the rest of her treatment at 1.75 SANTY. I did examine her today, and felt she had another Sinus infection, I called in Augmentin to her pharmacy. Antoinette Lau APRN 29Oct - Patient deemed safe for HBOT today. VS stable. Patient completed full session with no issues or problem. Antoinette Lau APRN 30Oct - Cleared for HBOT this day and completed full session free of problem. [facility] 31Oct - See E&M visit note 03Nov - Patient deemed safe for HBOT today. VS stable. Patient completed full session with no issues or problem, Pt was able to make it to 1.75 SANTY today with minimal discomfort. Antoinette Lau APRN 04Nov - Patient deemed safe for HBOT today. VS stable. Patient completed full session with no issues or problem, Patient was able to reach 2.0 SANTY today with no issues. Antoinette Lau DANCE CHOREOGRAPHER 05-07Nov - patient out ill - [facility] 10Nov - Patient deemed safe for HBOT today. VS stable. Patient completed full session with no issues or problem. Antoinette Lau DANCE CHOREOGRAPHER Not available 08/10/2025 13:54:15 Reason for Referral None Reported. Results Created Date Observation Date Name Description Value Unit Range Abnormal Flag Note LastModifiedBy Organization Detail LastModifiedTime 07/20/20 25 07/20/2025 HbA1c (hemo globi n A1c), blood HbA1C 7.2 Not Available Not Availa ble 07/21/2025 10:12:48 Result Notes None recorded. Problems Name Problem SNOMED Code Status Onset Date Resolution Date Notes Provider Name and Address Organization Details Recorded Time Upper respiratory infection 90731490 Active 2024 COLEMAN LAU NP null, [place] - [facility] 12:18:40 Episodic migraine 0593564904281 06 Active 2024 COLEMAN LAU NP null, [place] [facility] 12:34:01 Type 2 diabetes mellitus 60915297 Active 2024 COLEMAN LAU NP null, [place] [facility] 15:27:12 Refractory migraine with aura 950735198 Active 2024 COLEMAN LAU NP null, [place] [facility] 10:56:52 Recurrent acute frontal sinusitis Active 2024 COLEMAN LAU NP null, [place] [facility] 12:47:05 Candidiasis of vagina 90688781 Active 2024 COLEMAN LAU NP null, [place] [facility] 12:47:26 Acute upper respiratory infection 59395553 Active 2024 COLEMAN LAU NP null, [place] [facility] 12:32:57 Problem Notes None recorded. Procedures Surgical History Date Name Laterality Status Provider Name and Address Organization Details Recorded Time 09/15/20 [facility] Therapy Treatment Form completed Carolyn roland [place] - [facility] 09/15/2025 12:48:40 09/14/20 25 [facility] Therapy Treatment Form completed COLEMAN LAU NP [place] - [facility] 09/14/2025 14:54:43 09/07/20 25 [facility] Therapy Treatment Form completed Carolyn roland [place] - [facility] 09/07/2025 12:38:58 08/31/20 25 [facility] Therapy Treatment Form completed Carolyn luan [place] - [facility] 08/31/2025 12:48:46 08/25/20 25 [facility] Therapy Treatment Form completed Carolyn roland [place] - [facility] 08/25/2025 12:52:26 08/24/20 25 [facility] Therapy Treatment Form completed Carolyn luan [place] - [facility] 08/24/2025 12:53:43 08/17/20 25 [facility] Therapy Treatment Form completed Carolyn roland [place] - [facility] 08/17/2025 13:02:48 08/14/20 25 [facility] Therapy Treatment Form completed Lisa Sosa [place] - [facility] 08/14/2025 12:43:08 08/13/20 25 [facility] Therapy Treatment Form completed Carolyn roland [place] [facility] 08/13/2025 12:27:58 08/12/20 25 [facility] Therapy Treatment Form completed Carolyn roland [place] [facility] 08/12/2025 12:36:02 08/12/20 25 Wound completed COLEMAN LAU NP [place] - [facility] 08/12/2025 14:15:15 08/11/20 25 [facility] Therapy Treatment Form completed Carolyn roland [place] - [facility] 08/11/2025 12:58:18 08/10/20 25 [facility] Therapy Treatment Form completed Carolyn roland [place] [facility] 08/10/2025 12:57:23 08/04/20 25 [facility] Therapy Treatment Form completed COLEMAN LAU NP [place] [facility] 08/04/2025 13:51:50 08/03/20 25 [facility] Therapy Treatment Form completed ABDOULAYE [place] - [facility] 08/03/2025 14:17:35 07/30/20 25 [facility] Therapy Treatment Form completed Carolyn roland [place] - [facility] 07/30/2025 12:38:27 07/29/20 25 [facility] Therapy Treatment Form completed Carolyn roland [place] [facility] 07/29/2025 12:40:06 07/28/20 [...] - [facility] 07/24/2025 17:57:20 07/23/20 [facility] Therapy Treatment Form completed [facility] - [facility] 07/23/2025 12:41:49 07/22/20 [facility] Therapy Treatment Form completed [facility] - [facility] 07/22/2025 12:53:32 07/21/20 25 [facility] Therapy Treatment Form completed [facility] - [facility] 07/21/2025 12:43:55 07/20/20 [facility] Therapy Treatment Form completed [facility] - [facility] 07/20/2025 12:58:21 07/17/20 [...] [facility] Therapy Treatment Form completed [facility] - [facility] 07/15/2025 12:39:29 07/14/20 25 [facility] Therapy Treatment Form completed COLEMAN LAU NP [place] - [facility] 07/14/2025 15:14:39 07/09/20 25 [facility] Therapy Treatment Form completed [facility] - [facility] 07/09/2025 12:46:05 07/08/20 25 [facility] Therapy Treatment Form completed [facility] - [facility] 07/08/2025 12:41:28 07/07/20 25 [facility] Therapy Treatment Form completed Manfred Shelton MD [place] - [facility] 07/08/2025 08:10:21 07/06/20 25 [facility] Therapy Treatment Form completed [facility] - [facility] 07/06/2025 13:06:29 07/03/20 25 [facility] Therapy Treatment Form completed Paual Licea [place] - [facility] 07/03/2025 12:47:29 07/02/20 25 [facility] Therapy Treatment Form completed Paula Licea [place] - [facility] 07/02/2025 13:06:39 07/01/20 25 [facility] Therapy Treatment Form completed Paula BER[place] - [facility] 07/01/2025 13:05:37 06/30/20 25 [facility] Therapy Treatment Form completed COLEMAN LAU NP [place] - [facility] 06/30/2025 13:46:12 06/29/20 25 [facility] Therapy Treatment Form completed Carolyn roland [place] - [facility] 06/29/2025 13:24:58 06/26/20 25 [facility] Therapy Treatment Form completed Manfred Shelton MD [place] - [facility] 06/26/2025 16:57:55 06/25/20 25 [facility] Therapy Treatment Form completed [facility] - [facility] 06/25/2025 12:47:07 06/24/20 25 [facility] Therapy Treatment Form completed [facility] - [facility] 06/24/2025 12:40:20 06/23/20 25 [facility] Therapy Treatment Form completed [facility] - [facility] 06/23/2025 12:39:50 06/22/20 25 [facility] Therapy Treatment Form completed [facility] - [facility] 06/22/2025 12:49:55 06/19/20 25 [facility] Therapy Treatment Form completed Manfred Shelton MD [place] - [facility] 06/19/2025 14:13:24 06/18/20 25 [facility] Therapy Treatment Form completed COLEMAN LAU NP [place] - [facility] 06/18/2025 13:17:34 06/17/20 25 [facility] Therapy Treatment Form completed [facility] - [facility] 06/17/2025 12:29:15 06/16/20 25 [facility] Therapy Treatment Form completed [facility] - [facility] 06/16/2025 12:45:53 06/15/20 25 [facility] Therapy Treatment Form completed [facility] - [facility] 06/15/2025 12:47:07 06/12/20 25 [facility] Therapy Treatment Form completed Manfred Shelton MD [place] [facility] 06/12/2025 14:54:52 06/11/20 25 [facility] Therapy Treatment Form completed [facility] - [facility] 06/11/2025 13:02:39 06/10/20 25 [facility] Therapy Treatment Form completed [facility] - [facility] 06/10/2025 12:50:18 06/08/20 25 [facility] Therapy Treatment Form completed [facility] - [facility] 06/08/2025 12:56:07 06/05/20 25 [facility] Therapy Treatment Form completed Eveliapatricia Winters [place] - [facility] 06/05/2025 [...] [facility] Therapy Treatment Form completed [facility] - [facility] 06/02/2025 13:09:37 05/29/20 25 [facility] Therapy Treatment Form completed [facility] - [facility] 05/29/2025 12:25:31 05/28/20 25 [facility] Therapy Treatment Form completed [facility] - [facility] 05/28/2025 13:02:44 05/27/20 25 Wound completed COLEMAN LAU NP [place] - [facility] 05/27/2025 13:18:22 05/27/20 25 [facility] Therapy Treatment Form completed [facility] - [facility] 05/27/2025 12:50:01 05/26/20 25 Nurse Note completed Luciana Noriega [place] [facility] 05/26/2025 16:40:42 05/26/20 25 [facility] Therapy Treatment Form completed [facility] - [facility] 05/26/2025 12:27:56 05/25/20 25 [facility] Therapy Treatment Form completed [facility] - [facility] 05/25/2025 [...] Air Breaks Therapy Treatment Form completed Mary Riveorer [place] [facility] 05/15/2025 14:17:22 [...] Crystal Ruben [place] - [facility] 05/07/2025 13:01:51 [...] Not available Not available Not available 04/23/2025 58171 3 RxNorm Luciana servin, [place] - [facility] 14:25:27 1104 Avelox medicatio n Not available Not available Not available 04/23/2025 53937 6 RxNorm Luciana servin, [place] - [facility] 5 14:25:52 1105 metformin medicatio n other Not available low 04/23/20252023 6809 RxNorm GI issue s Luciana servin, [place] - [facility] 14:26:11 1253 Product containin g angiotens in-conver ting enzyme inhibitor (product) medicatio n cough moderate Not available 06/26/2025 86496 009 SNOMED Not Available [employer] - prod 5 10:54:20 1254 metformin hydrochlo ride medicatio n Not available Not available Not available 06/26/2025 78988 3 RxNorm Not Available [employer] - prod 5 10:54:20 1358 ceftriaxo ne medicatio n rash moderate Not available 07/15/2025 2193 RxNorm Not Available [employer] - [employer] - prod 5 10:18:57 1359 droperido l medicatio n dyspnea Not available Not available 07/15/2025 3648 RxNorm Not Available [employer] - [employer] - prod 5 10:18:57 1360 moxifloxa beck medicatio n rash moderate Not available 07/15/2025 41411 2 RxNorm Not Available [employer] - prod 5 10:18:57 1461 moxifloxa beck hydrochlo ride medicatio n Not available Not available Not available 08/24/20252015 65889 0 RxNorm Not Available [employer] - prod 5 04:35:37 Medications Name Sig Start Date Stop [...] 5 84 /min 16 /min 98.4 [degF] 84 % 69 /min 16 /min 97.9 [degF] 89 % 151/68 mm[Hg] 135/72 mm[Hg] [facility] - [facility] 5 12:57:42 Social History None recorded. Functional Status None [...] ICD10 Code Diagnosis IMO Codes Diagnosis Note [id number] Manfred Shelton MD Main Office [address] [address] 07/14/2025 10:06:05 07/14/2025 15:15:47 [id number] Manfred Shelton MD Main Office [address] [place] [address] 07/15/2025 10:17:40 07/15/2025 13:26:46 [id number] Manfred Shelton MD Main Office [address] [place] [address] 07/15/2025 14:45:53 07/15/2025 14:48:12 [id number] Manfred Shelton MD Main Office [address] [place] [address] 07/16/2025 10:18:19 07/16/2025 14:20:47 [id number] Manfred Shelton MD Main Office [address] [place] [address] 07/17/2025 10:06:47 07/17/2025 14:10:36 Refractory migraine with aura 810375954 G43.945 [id number] Manfred Shelton MD Main Office [address] [place] [address] 07/20/2025 11:09:11 07/20/2025 14:45:37 [id number] Manfred Shelton MD Main Office [address] [place] [address] 07/21/2025 10:11:12 07/21/2025 12:49:36 [id number] Manfred Shelton MD Main Office [address] [place] [address] 07/22/2025 10:10:07 07/22/2025 13:11:46 [id number] Manfred Shelton MD Main Office [address] [place] [address] 07/23/2025 10:48:45 07/23/2025 15:03:21 [id number] Manfred Shelton MD Main Office [address] [place] [address] 07/24/2025 10:18:12 07/24/2025 17:58:24 [id number] Manfred Shelton MD Main Office [address] [place] [address] 07/27/2025 10:15:44 07/27/2025 14:05:56 [id number] Manfred Shelton MD Main Office [address] [place] [address] 07/28/2025 10:36:12 07/28/2025 13:58:27 [id number] Manfred Shelton MD Main Office [address] [place] [address] 07/29/2025 10:14:56 07/29/2025 13:38:02 [id number] Manfred Shelton MD Main Office [address] [place] [address] 07/30/2025 10:32:11 07/31/2025 08:45:48 [id number] Manfred Shelton MD Main Office [address] [place] [address] 08/01/2025 08:56:19 08/01/2025 09:05:22 [id number] Manfred Shelton MD Main Office [address] [place] [address] 08/03/2025 10:12:43 08/03/2025 14:18:16 [id number] Mnafred Shelton MD Main Office [address] [place] [address] 08/04/2025 10:18:33 08/04/2025 13:52:38 [id number] Manfred Shelton MD Main Office [address] [place] [address] 08/10/2025 10:19:50 08/10/2025 13:54:24 Health Concerns Section Related Observation LastModified by Organization Detai ls LastModified Time None Recorded Concern Status LastModified by Organization Details LastModified Time None Recorded Payers Encounter Date Sequence Insurance Name Policy Number Policy Gonzales Covered Member ID Gonzales Member ID Guarantor Name 08/10/2025 2 [employer] Seema Delacruz [id number] Seema Delacruz 08/10/2025 1 [employer] Seema Delacruz [id number] Seema Delacruz OBGyn Episode No OBEpisode recorded.
--- OUTSIDE RECORDS SUMMARY | 2025-09-16 16:24 | XMS_ITS | Continuity of Care Document ---
Author Organization [place] [facility], Main Office Address [address] [place] [address] Care Team Providers Care School Guard Name Role Phone STEPHY YUSUF Primary Care Provider [phone] Assessment No assessment recorded. Plan of Treatment [...] Modified By Organization Details Last Modified Time 09/14/2025 [id number] BACKGROUND: Seema Delacruz is a 55 y.o. [...] Diagnosis: L97.512, E11.621 Session Notes: Today's Date [id number] HBOT session 73 of 80 Next HBOT [id number] 30Jul - Patient cleared for 1st HBOT [...] session with no problem. Antoinette Lau MANAGER CONTRACTING 04Aug - Patient deemed safe for HBOT today. VS stable. Patient completed full session with no problem. Antoinette Lua APRN 05Aug - patient out for another [...] for an upper respiratory infection. Nicolasa MANAGER CONTRACTING 07Aug- Patient cleared for HBOT today. VS stable. PAtient had little trouble reaching pressure today, but had to come out of chamber early due to needing to use restroom. She managed to do 4 segs-118 minutes. [place].Tanner MANAGER CONTRACTING 08Aug - Patient cleared for HBOT today. VS stable. Patient completed full session with no problem. Antoinette Lau MANAGER CONTRACTING 11Aug - Patient cleared for HBOT today. [...] session with no problem. Antoinette Lau MANAGER CONTRACTING 13Aug - Patient cleared for HBOT today. VS stable. Patient completed full session with no problem. Wound care to follow treatment today. Antoinette Lau APRN 14Aug - Patient cleared for HBOT today. VS stable. Patient completed full session with no problem. Antoinette Lau MANAGER CONTRACTING 15Aug - Patient cleared for HBOT today. [...] to try again on Sunday. Nicolasa MANAGER CONTRACTING 18Aug - Patient cleared for HBOT today. VS stable. Patient completed full session with no problem. Antoinette Lau MANAGER CONTRACTING 19Aug - Patient deemed safe for HBOT today. VS stable. FSBS within range. Patient completed full session with no problem. Antoinette Lau MANAGER CONTRACTING 2015Aug - Patient cleared for HBOT today. [...] anxiety. Dressing change today per nursing. [facility] 25Aug - Patient deemed safe [...] andcompleted full session free of problem. [facility] 29Aug - Cleared for HBOT his date and completed full session free of problem. Of note, this patient continues to smoke tobacco cigarettes. [facility] 02Sep - Patient deemed safe for HBOT [...] she was symptom-free. Kept under observation until ykuo above 80 and was discharged with 92. [facility] 08Sep - Patient deemed safe for HBOT [...] to satisfy demand of ride provider. [facility] 15Sep - Patient cleared for HBOT today. [...] to proceed to another medical appointment. [facility] 22Sep - Patient cleared for HBOT today. [...] Patient completed full session with no problem. MIlsa Lau MANAGER CONTRACTING 26Sep - Deemed safe for HBOT on this date and completed the full session uneventfully. [facility] 29Sep - Patient cleared for HBOT today. VS stable. Patient completed 3 Seg session with no problem. M.Jessica Lau MANAGER CONTRACTING 30Sep - Patient cleared for HBOT today. VS stable. Patient completed full session with no problem. M.Jessica Lau MANAGER CONTRACTING 01Oct - Patient cleared for HBOT today. VS stable. Patient completed full session with no problem. M.Jessica Lau MANAGER CONTRACTING 02Oct - Cleared for HBOT this date and completed full session free of problem. [facility] 03Oct - Deemed safe for HBOT today and completed her full session without problem. [facility] 06Oct - Found safe for HBOT this date and tolerated her session free of problem. [facility] 07Oct- Cleared for HBOT this date and completed the full session without problem. [facility] 08Oct - Glu on arrival marginal so given caloric intake first and then cleared for HBOT this day. Had no problem completing full session emerging at Glu 139. [facility] 09Oct - Deemed safe for HBOT today and completed full session without problem. [facility] 14Oct - Patient returns after being out ill. Cleared for HBOT today. VS stable. Patient completed full session with no problem. Antoinette Lau MANAGER CONTRACTING 15Oct - Patient cleared for HBOT today. VS stable. Patient completed full session with no problem. M.Jessica Lau MANAGER CONTRACTING 16Oct - Patient cleared for HBOT today. VS stable. Patient completed full session with no problem. M.Jessica Lau MANAGER CONTRACTING 17Oct - Patient cleared for HBOT today. VS stable. Patient completed full session with no problem. [place].Jessica Lau MANAGER CONTRACTING 20Oct - Patient an hour late today due to transportation company. She can only do an hour, or she will not have a ride back home. Cleared for HBOT, VS stable. Finished 1 hour session with no issues or complaints. M.Tanner MANAGER CONTRACTING 21Oct - Patient cleared for HBOT today. VS stable. Patient completed full session with no problem. M.Jessica Lau MANAGER CONTRACTING 22Oct - Patient cleared for HBOT today. VS stable. Patient completed full session with no problem. Antoinette Lau APRN 23Oct - Patient cleared for HBOT today. VS stable. Patient completed full session with no problem. Antoinette Lau APRN 24Oct - Deemed safe for HBOT this date and did complete full session without problem. [facility] 27Oct - Patient cleared for HBOT today. [...] full session free of problem. Estefania WATERS 31Oct - See E&M visit note 03Nov [...] reach 2.0 SANTY today with no issues. M.Jessica SotoJudi MANAGER CONTRACTING 05-07Nov - patient out ill - [facility] 10Nov - Patient deemed safe for HBOT today. VS stable. Patient completed full session with no issues or problem. [place].Monica. Judi MANAGER CONTRACTING 11Nov - Patient cleared for HBOT today. VS stable. Patient completed full session with no problem. [place].Monica. Charlotte Hall MANAGER CONTRACTING 12Nov - Patient deemed safe for HBOT today. VS stable. Patient able to complete full session with no issues or problems. Wound care done after treatment today. [place].Monica. Judi MANAGER CONTRACTING 13Nov - Patient cleared for HBOT today. VS stable. Patient able to complete full session with no issues or problems. [place].Monica. Judi MANAGER CONTRACTING 14Nov - Deemed safe for HBOT today and completed full session uneventfully. Additional care: [id number] for DX L97.512 and Ell.621 - Following HBOT, she had her wound redressed at the chamber. She complained about excess pain in foot so I was asked to examine her. Her Right foot was warm and well perfused. The open wound on the lateral edge was very clean with all healthy looking wound bed and wound margins. Copious serous exudate from wound but no necrotic odor. Palpation along the lateral Right foot found general tenderness but no flocculence or crepitus and no focal calor. She denied any excess use of foot or new event of snapping noise. No complaint of rising erythema to leg or ankle and none was observed today. This was assessed by me as bone pain. She has Charcot degeneration of foot and ankle and breakdown is a common event with that disorder. I do not find evidence of cellulitis nor deeper tissue infection. 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 I suggested she call Dr Ortiz to see if date should be sooner with change in symptoms and exam. However, later I reviewed chart notes sent from Dr Ortiz and find Ms Delacruz has been making same complaints week after week. Will defer further management to Dr Ortiz. Manfred Shelton MD 17Nov - Patient deemed safe for HBOT today. VS stable. Patient able to complete full session with no issues or problems. [place].MonicaDeepali Charlotte Hall MANAGER CONTRACTING 18-21Nov - patient out ill - [facility] 24Nov - Patient deemed safe for HBOT today. VS stable. Patient able to complete full session with no problems or issues. Antoinette Lau MANAGER CONTRACTING 25Nov - Patient cleared for HBOT today. VS stable. Patient able to complete full session with no issues or problems. Antoinette Lau MANAGER CONTRACTING 01Dec - Patient deemed safe for HBOT today. VS stable. Patient able to complete full session with no problems or issues. Antoinette Lau MANAGER CONTRACTING 02-07Dec - Patient out due to illness - [facility] 08Dec - Patient cleared for HBOT today. VS stable. Patient able to complete full session with no issues. Antoinette Lau MANAGER CONTRACTING 15Dec - Patient cleared for HBOT today. VS stable. Patients sugar upon arrival was 75. Drank some of a protein shake and apple juice before tx, as well as being sent in with glucose gel in case needed and protein shake in water bottle to drink throughout tx, Sugar after tx was 89. Drank another apple juice. Patient able to complete full session with no other problems or issues. Antoinette Lau MANAGER CONTRACTING Not available 09/14/2025 14:55:53 Reason for Referral None Reported. Problems Name Problem SNOMED Code Status Onset Date Resolution Date Notes Provider Name and Address Organization Details Recorded Time Upper respiratory infection [id number] Active 2024 COLEMAN LAU NP null, [place] - [facility] 12:18:40 Episodic migraine [id number] Active 2024 COLEMAN LAU NP null, [place] [facility] 12:34:01 Type 2 diabetes mellitus 87019771 Active 2024 COLEMAN LAU NP null, [place] - [facility] 15:27:12 Refractory migraine with aura [id number] Active 2024 COLEMAN LAU NP null, [place] [facility] 10:56:52 Recurrent acute frontal sinusitis Active 2024 COLEMAN LAU NP null, [place] [facility] 12:47:05 Candidiasis of vagina 88478489 Active 2024 COELMAN LAU NP null, [place] - [facility] 12:47:26 Acute upper respiratory infection 10741954 Active 2024 COLEMAN LAU [facility] [place] [facility] 12:32:57 Problem Notes None recorded. Procedures Surgical History Date Name Laterality Status Provider Name and Address Organization Details Recorded Time 09/15/20 [facility] Therapy Treatment Form completed Carolyn roland [place] - [facility] 09/15/2025 12:48:40 09/14/20 25 [facility] Therapy Treatment Form completed COLEMAN LAU NP [place] - [facility] 09/14/2025 14:54:43 09/07/20 25 [facility] Therapy Treatment Form completed Carolyn roland [place] - [facility] 09/07/2025 12:38:58 08/31/20 25 [facility] Therapy Treatment Form completed Carolyn roland [place] - [facility] 08/31/2025 12:48:46 08/25/20 25 [facility] Therapy Treatment Form completed Carolyn roland [place] - [facility] 08/25/2025 12:52:26 08/24/20 25 [facility] Therapy Treatment Form completed [facility] - [facility] 08/24/2025 12:53:43 08/17/20 25 [facility] Therapy Treatment Form completed Carolyn luan [place] - [facility] 08/17/2025 13:02:48 08/14/20 25 [facility] Therapy Treatment Form completed Lisa Sosa [place] - [facility] 08/14/2025 12:43:08 08/13/20 25 [facility] Therapy Treatment Form completed Carolyn luan [place] - [facility] 08/13/2025 12:27:58 08/12/20 25 [facility] Therapy Treatment Form completed Carolyn luan [place] - [facility] 08/12/2025 12:36:02 08/12/20 25 Wound completed COLEMAN LAU NP [place] - [facility] 08/12/2025 14:15:15 08/11/20 25 [facility] Therapy Treatment Form completed Carolyn luan [place] - [facility] 08/11/2025 12:58:18 08/10/20 25 [facility] Therapy Treatment Form completed Carolyn roland [place] - [facility] 08/10/2025 12:57:23 08/04/20 25 [facility] Therapy Treatment Form completed COLEMAN LAU NP [place] - [facility] 08/04/2025 13:51:50 08/03/20 [facility] Therapy Treatment Form completed COLEMAN LAU NP [place] [facility] 08/03/2025 14:17:35 07/30/20 [facility] Therapy Treatment Form completed [facility] - [facility] 07/30/2025 12:38:27 07/29/20 [facility] Therapy Treatment Form completed [facility] - [facility] 07/29/2025 12:40:06 07/28/20 [facility] Therapy Treatment Form completed [facility] 07/23/2025 12:41:49 07/22/20 [facility] Therapy Treatment Form completed [facility] - [facility] 07/22/2025 12:53:32 07/21/20 [facility] Therapy Treatment Form completed [facility] - [facility] 07/21/2025 12:43:55 07/20/20 [facility] Therapy Treatment Form completed [facility] - [facility] 07/20/2025 12:58:21 07/17/20 [facility] Therapy Treatment Form completed Lisa Sosa [place] - [facility] 07/17/2025 12:35:46 07/16/20 [facility] Therapy Treatment Form completed Frank Gage [place] - [facility] 07/16/2025 16:54:47 07/15/20 25 Wound completed COLEMAN LAU NP [place] - [facility] 07/15/2025 14:47:28 07/15/20 [facility] Therapy Treatment Form completed [facility] - [facility] 07/15/2025 12:39:29 07/14/20 25 [facility] Therapy Treatment Form completed COLEMAN LAU NP [place] [facility] 07/14/2025 15:14:39 07/09/20 25 [facility] Therapy Treatment Form completed [facility] - [facility] 07/09/2025 12:46:05 07/08/20 25 [facility] Therapy Treatment Form completed [facility] - [facility] 07/08/2025 12:41:28 07/07/20 25 [facility] Therapy Treatment Form completed Manfred Shelton MD [place] - [facility] 07/08/2025 08:10:21 07/06/20 25 [facility] Therapy Treatment Form completed Carolyn roland [place] - [facility] 07/06/2025 13:06:29 07/03/20 25 [facility] Therapy Treatment Form completed Paula Licea [place] - [facility] 07/03/2025 [...] [facility] 06/25/2025 12:47:07 06/24/20 25 [facility] Therapy Treatment Form completed [facility] - [facility] 06/24/2025 12:40:20 06/23/20 25 [facility] Therapy Treatment Form completed [facility] - [facility] 06/23/2025 12:39:50 06/22/20 25 [facility] Therapy Treatment Form completed [facility] - [facility] 06/22/2025 [...] [facility] 06/16/2025 12:45:53 06/15/20 25 [facility] Therapy Treatment Form completed [facility] - [facility] 06/15/2025 12:47:07 06/12/20 25 [facility] Therapy Treatment Form completed Manfred Shelton MD [place] - [facility] 06/12/2025 14:54:52 06/11/20 25 [facility] Therapy Treatment Form completed [facility] - [facility] 06/11/2025 13:02:39 06/10/20 25 [facility] Therapy Treatment Form completed [facility] - [facility] 06/10/2025 12:50:18 06/08/20 25 [facility] Therapy Treatment Form completed [facility] - [facility] 06/08/2025 12:56:07 06/05/20 25 [facility] Therapy Treatment Form completed Evelia Salashiram [place] - [facility] 06/05/2025 14:28:16 06/04/20 25 Wound completed COLEMAN LAU NP [place] - [facility] 06/04/2025 14:24:29 06/04/20 25 [facility] Therapy Treatment Form completed COLEMAN LAU NP [place] - [facility] 06/04/2025 13:56:49 06/03/20 25 [facility] Therapy Treatment Form completed Eveliapatricia Winters [place] - [facility] 06/03/2025 14:11:11 06/02/20 25 [facility] Therapy Treatment Form completed [facility] - [facility] 06/02/2025 13:09:37 05/29/20 25 [facility] Therapy Treatment Form completed [facility] - [facility] 05/29/2025 12:25:31 05/28/20 25 [facility] Therapy Treatment Form completed [facility] - [facility] 05/28/2025 13:02:44 05/27/20 25 Wound completed COLEMAN LAU NP [place] - [facility] 05/27/2025 13:18:22 05/27/20 25 [facility] Therapy Treatment Form completed [facility] - [facility] 05/27/2025 12:50:01 05/26/20 25 Nurse Note completed Luciana Hari [place] - [facility] 05/26/2025 [...] Mary Riveroer [place] - [facility] 05/12/2025 13:20:36 05/11/20 [...] Not available 04/23/2025 5640 RxNorm Luciana servin [place] - [facility] 14:25:04 1102 Rocephin medicatio n Not available Not available Not available 04/23/2025 9449 RxNorm Luciana Noriega null, [place] - [facility] 5 14:25:10 1103 Inapsine medicatio n Not available Not available Not available 04/23/2025 89555 3 RxNorm Luciana Noriega null, [place] - [facility] 5 14:25:27 1104 Avelox medicatio n Not available Not available Not available 04/23/2025 21513 6 RxNorm Luciana Noriega null, [place] - [facility] 5 14:25:52 1105 metformin medicatio n other Not available low 04/23/20252023 6809 RxNorm GI issue s Luciana Noriega null, [place] - [facility] 5 14:26:11 1253 Product containin g angiotens in-conver ting enzyme inhibitor (product) medicatio n cough moderate Not available 06/26/2025 45348 009 SNOMED Not Available taisha - External Data Service - prod 5 10:54:20 1254 metformin hydrochlo ride medicatio n Not available Not available Not available 06/26/2025 74414 3 RxNorm Not Available taisha - External [...] medicatio n rash moderate Not available 07/15/2025 13580 2 RxNorm Not Available taisha - External Data Service - prod 5 10:18:57 1461 moxifloxa beck hydrochlo ride medicatio n Not available Not available Not available 08/24/20252015 83589 0 RxNorm Not Available taisha - External Data Service - prod 04:35:37 Medications Name [...] Not Available Not A vailable Not Available [employer] Joelle 14 Day Sensor kit change every [...] Address Organization Details Last Updated DateTime 5 86 /min 16 /min 98.8 [degF] 92 % 81 /min 16 /min 97.7 [degF] 93 % 167/88 mm[Hg] 157/77 mm[Hg] [facility] - [facility] 5 12:44:57 Social History None recorded. Functional Status None [...] ICD10 Code Diagnosis IMO Codes Diagnosis Note [id number] Manfred Shelton MD Main Office [address] [place] [id number] 08/17/2025 10:11:40 08/17/2025 13:45:10 [id number] Manfred Shelton MD Main Office [address] [place] [id number] 08/24/2025 10:23:30 08/24/2025 13:10:50 [id number] Manfred Shelton MD Main Office [address] [place] [id number] 08/25/2025 10:36:28 08/25/2025 13:49:08 [id number] Manfred Shelton MD Main Office [address] [place] [id number] 08/31/2025 10:01:37 08/31/2025 13:53:53 [id number] Manfred Shelton MD Main Office [address] [place] [id number] 09/07/2025 10:18:13 09/07/2025 14:13:47 [id number] Manfred Shelton MD Main Office [address] [place] [id number] 09/14/2025 10:07:01 09/14/2025 14:56:01 Health Concerns Section Related Observation LastModified by Organization Detai ls LastModified Time None Recorded Concern Status LastModified by Organization Details LastModified Time None Recorded Payers Encounter Date Sequence Insurance Name Policy Number Policy Gonzales Covered Member ID Gonzales Member ID Guarantor Name 09/14/2025 2 [employer] Seema Delacruz [id number] Seema Delacruz 09/14/2025 1 [employer] Seema Delacruz [id number] Seema Delacruz OBGyn Episode No OBEpisode recorded.
--- OUTSIDE RECORDS SUMMARY | 2025-09-16 16:24 | XMS_ITS | Continuity of Care Document ---
Author Organization [place] [facility], Main Office Address [address] [place] [address] Care Team Providers Care Box Maker Wood Name Role Phone STEPHY YUSUF Primary Care [...] By Organization Details Last Modified Time 06/22/2025 7994 BACKGROUND: Seema Delacruz is a 55 y.o. [...] HBOT session 35 of 40 Next HBOT [id number] 30Jul - Patient cleared for 1st HBOT [...] full session with no problem. Antoinette Lau BATTERY CONTAINER TESTER 04Aug - Patient deemed safe for HBOT [...] antibiotics for an upper respiratory infection. Nicolasa BATTER[employer] CONTAINER TESTER 07Aug- Patient cleared for HBOT today. VS stable. PAtient had little trouble reaching pressure today, but had to come out of chamber early due to needing to use restroom. She managed to do 4 segs-118 minutes. [place].Tanner BATTERY CONTAINER TESTER 08Aug - Patient cleared for HBOT today. VS stable. Patient completed full session with no problem. Antoinette Lau BATTERY CONTAINER TESTER 11Aug - Patient cleared for HBOT today. [...] full session with no problem. Antoinette Lau BATTERY CONTAINER TESTER 13Aug - Patient cleared for HBOT today. VS stable. Patient completed full session with no problem. Wound care to follow treatment today. Antoinette Lau APRN 14Aug - Patient cleared for HBOT today. VS stable. Patient completed full session with no problem. Antoinette Lau BATTERY CONTAINER TESTER 15Aug - Patient cleared for HBOT today. [...] attempt to try again on Sunday. Nicolasa BATTERY CONTAINER TESTER 18Aug - Patient cleared for HBOT today. VS stable. Patient completed full session with no problem. Antoinette Lau BATTERY CONTAINER TESTER 19Aug - Patient deemed safe for HBOT today. VS stable. FSBS within range. Patient completed full session with no problem. Antoinette Lau BATTERY CONTAINER TESTER 2015Aug - Patient cleared for HBOT today. [...] significant anxiety. Dressing change today per nursing. [facility] 25Aug - Patient deemed safe [...] date andcompleted full session free of problem. [facility] 29Aug - Cleared for HBOT his date and completed full session free of problem. Of note, this patient continues to smoke tobacco cigarettes. [facility] 02Sep - Patient deemed safe [...] above 80 and was discharged with 92. [facility] 08Sep - Patient deemed safe [...] shortened to satisfy demand of ride provider. [facility] 15Sep - Patient cleared for [...] was to proceed to another medical appointment. [facility] 22Sep - Patient cleared for HBOT today. VS stable. Patient completed full session with no problem. Antoinette Lau APRN Not available 06/22/2025 14:32:21 Reason for Referral None Reported. Problems Name Problem SNOMED Code Status Onset Date Resolution Date Notes Provider Name and Address Organization Details Recorded Time Upper respiratory infection 58697502 Active 2024 COLEMAN LAU NP null, [place] - [facility] 12:18:40 Episodic migraine 6558450245543 06 Active 2024 COLEMAN LAU NP null, [place] - [facility] 12:34:01 Type 2 diabetes mellitus 03759340 Active 2024 COLEMAN LAU NP null, [place] [facility] 15:27:12 Refractory migraine with aura 755038717 Active 2024 COLEMAN LAU NP null, [place] - [facility] 10:56:52 Recurrent acute frontal sinusitis Active 2024 COLEMAN LAU NP null, [place] [facility] 12:47:05 Candidiasis of vagina 07284150 Active 2024 COLEMAN LAU NP null, [place] - [facility] 12:47:26 Acute upper respiratory infection 96263196 Active 2024 COLEMAN LAU NP null, [place] [...] - [facility] 09/14/2025 14:54:43 09/07/20 [facility] Therapy Treatment Form completed Carolyn luan [place] - [facility] 09/07/2025 12:38:58 08/31/20 25 [facility] Therapy Treatment Form completed [facility] - [facility] 08/31/2025 12:48:46 08/25/20 25 [facility] Therapy Treatment Form completed Carolyn luan [place] - [facility] 08/25/2025 12:52:26 08/24/20 25 [facility] Therapy Treatment Form completed [facility] - [facility] 08/24/2025 12:53:43 08/17/20 25 [facility] Therapy Treatment Form completed [facility] - [facility] 08/17/2025 13:02:48 08/14/20 25 [facility] Therapy Treatment Form completed Lisa Sosa [place] - [facility] 08/14/2025 12:43:08 08/13/20 25 [facility] Therapy Treatment Form completed Carolyn roland [place] - [facility] 08/13/2025 12:27:58 08/12/20 25 [facility] Therapy Treatment Form completed [facility] - [facility] 08/12/2025 12:36:02 08/12/20 25 Wound completed COLEMAN LAU NP [place] - [facility] 08/12/2025 14:15:15 08/11/20 25 [facility] Therapy Treatment Form completed [facility] [place] - [facility] 08/11/2025 12:58:18 08/10/20 [...] Carolyn roland [place] - [facility] 07/30/2025 12:38:27 07/29/20 25 [facility] Therapy Treatment Form completed Carolyn luan [place] - [facility] 07/29/2025 12:40:06 07/28/20 [...] Carolyn luan [place] - [facility] 07/23/2025 12:41:49 07/22/20 25 [facility] Therapy Treatment Form completed [facility] - [facility] 07/22/2025 12:53:32 07/21/20 25 [facility] Therapy Treatment Form completed [facility] - [facility] 07/21/2025 12:43:55 07/20/20 25 [facility] Therapy Treatment Form completed Carolyn roland [place] - [facility] 07/20/2025 12:58:21 07/17/20 [...] Carolyn roland [place] - [facility] 07/15/2025 12:39:29 07/14/20 [facility] Therapy Treatment Form completed COLEMAN LAU NP [place] - [facility] 07/14/2025 15:14:39 07/09/20 25 [facility] Therapy Treatment Form completed Carolyn roland [place] - [facility] 07/09/2025 12:46:05 07/08/20 25 [facility] Therapy Treatment Form completed Carolyn roland [place] - [facility] 07/08/2025 12:41:28 07/07/20 25 [facility] Therapy Treatment Form completed MD [place] - [facility] 07/08/2025 08:10:21 07/06/20 [...] Carolyn roland [place] - [facility] 06/29/2025 13:24:58 06/26/20 25 [facility] Therapy Treatment Form completed Manfred Shelton MD [place] - [facility] 06/26/2025 16:57:55 06/25/20 25 [facility] Therapy Treatment Form completed [facility] - [facility] 06/25/2025 12:47:07 06/24/20 25 [facility] Therapy Treatment Form completed [facility] - [facility] 06/24/2025 12:40:20 06/23/20 25 [facility] Therapy Treatment Form completed [facility] - [facility] 06/23/2025 12:39:50 06/22/20 25 [facility] Therapy Treatment Form completed [facility] - [facility] 06/22/2025 12:49:55 06/19/20 25 [facility] Therapy Treatment Form completed Manfred Shelton MD [place] - [facility] 06/19/2025 14:13:24 06/18/20 25 [facility] Therapy Treatment Form completed COLEMAN LAU NP [place] - [facility] 06/18/2025 13:17:34 06/17/20 25 [facility] Therapy Treatment Form completed [facility] - [facility] 06/17/2025 12:29:15 06/16/20 25 [facility] Therapy Treatment Form completed [facility] - [facility] 06/16/2025 12:45:53 06/15/20 25 [facility] Therapy Treatment Form completed [facility] - [facility] 06/15/2025 12:47:07 06/12/20 25 [facility] Therapy Treatment Form completed Manfred Shelton MD [place] - [facility] 06/12/2025 14:54:52 06/11/20 25 [facility] Therapy Treatment Form completed [facility] - [facility] 06/11/2025 13:02:39 06/10/20 25 [facility] Therapy Treatment Form completed [facility] - [facility] 06/10/2025 12:50:18 06/08/20 25 [facility] Therapy Treatment Form completed [facility] - [facility] 06/08/2025 12:56:07 [...] Care 04/23/2025 14:33:00 cataract surgery completed Luciana BERNLA - [facility] 04/23/2025 14:33:07 amputation [...] Not available Not available Not available 04/23/2025 97158 3 RxNorm Luciana servin, [place] - [facility] 14:25:27 1104 Avelox medicatio n Not available Not available Not available 04/23/2025 42771 6 RxNorm Luciana servin, [place] - [facility] 14:25:52 1105 metformin medicatio n other Not available [facility] 04/23/20252023 6809 RxNorm GI issue s Luciana Noriega null, [place] - [facility] 14:26:11 1253 Product containin g angiotens in-conver ting enzyme inhibitor (product) medicatio n cough moderate Not available 06/26/2025 95297 009 SNOMED Not Available taisha - [employer] - prod 5 10:54:20 1254 metformin hydrochlo ride medicatio n Not available Not available Not available 06/26/2025 52938 3 RxNorm Not Available taisha - [employer] - prod 5 10:54:20 1358 ceftriaxo ne medicatio n rash moderate Not available 07/15/2025 2193 RxNorm Not Available taisha - [employer] - prod 5 10:18:57 1359 droperido l medicatio n dyspnea Not available Not available 07/15/2025 3648 RxNorm Not Available taisha - [employer] - First To File 5 10:18:57 1360 moxifloxa beck medicatio n rash moderate Not available 07/15/2025 09702 2 RxNorm Not Available taisha - [employer] Data [employer] - prod 10:18:57 1461 moxifloxa beck hydrochlo ride medicatio n Not available Not available Not available 08/24/20252015 72132 0 RxNorm Not Available formerly [facility] [employer] - [facility] 04:35:37 Medications Name Sig Start Date Stop [...] /min 16 /min 98.2 [degF] 91 % 72 /min 16 /min 98.1 [degF] 92 % 165/76 mm[Hg] 140/75 mm[Hg] Carolyn roland [place] - [facility] 5 12:50:12 Date Recorded Heart rate Respiratory rate Body temperature Oxygen saturation Heart rate Respiratory rate Body temperature Oxygen saturation Systolic And Diastolic Systolic And Diastolic Provider Name and Address Organization Details Last Updated DateTime 5 84 /min 16 /min 98.4 [degF] 95 % 74 /min 16 /min 98.1 [degF] 93 % 169/78 mm[Hg] 138/76 mm[Hg] Craolyn roland [place] - [facility] 5 12:40:08 Social [...] [id number] Manfred Shelton MD Main Office [address] [place] [address] 05/22/2025 10:05:00 05/22/2025 14:31:52 5054 COLEMAN LAU NP Main Office [address] [place] [address] 05/25/2025 10:54:17 05/25/2025 14:23:41 5071 COLEMAN LAU NP Main Office [address] [place] [address] 05/26/2025 10:04:52 05/26/2025 13:22:24 5083 COLEMAN LAU NP Main Office [address] [place] [address] 05/26/2025 16:38:48 05/26/2025 16:40:45 5087 COLEMAN JASBIR, METAL CONTROL WORKER Main Office [address] [place] [address] 05/27/2025 10:11:43 05/27/2025 13:22:20 5093 COLEMAN JASBIR, METAL CONTROL WORKER Main Office [address] [place] [address] 05/27/2025 13:11:38 05/27/2025 13:19:10 5104 Manfred Shelton MD Main Office [address] [place] [address] 05/28/2025 10:14:13 05/29/2025 08:47:13 5117 Manfred Shelton MD Main Office [address] [place] [address] 05/29/2025 10:04:58 05/29/2025 17:43:48 5132 Manfred Shelton MD Main Office [address] [place] [address] 06/02/2025 10:25:50 06/02/2025 14:14:27 5149 Manfred Shelton MD Main Office [address] [place] [address] 06/03/2025 10:16:52 06/03/2025 14:45:20 5163 Manfred Shelton MD Main Office [address] [place] [address] 06/04/2025 10:31:23 06/04/2025 13:58:07 5173 Manfred Shelton MD Main Office [address] [place] [address] 06/04/2025 14:13:52 06/04/2025 14:25:08 5186 Manfred Shelton MD Main Office [address] [place] [address] 06/05/2025 10:55:07 06/05/2025 16:50:44 5202 Manfred Shelton MD Main Office [address] [place] [address] 06/08/2025 10:25:37 06/08/2025 14:39:12 5237 Manfred Shelton MD Main Office [address] [place] , [place] [address] 06/10/2025 10:19:13 06/10/2025 13:21:20 5255 Manfred Shelton MD Main Office [address] [place] , [place] [address] 06/11/2025 10:35:04 06/11/2025 14:11:07 5277 Manfred Shelton MD Main Office [address] [place] [address] 06/12/2025 10:59:45 06/12/2025 14:56:49 5293 Manfred Shelton MD Main Office [address] [place] , [place] [address] 06/15/2025 10:50:33 06/15/2025 13:14:21 5311 Manfred Shelton MD Main Office [address] [place] [address] 06/16/2025 10:14:56 06/16/2025 13:52:36 5329 Manfred Shelton MD Main Office [address] [place] , [place] [address] 06/17/2025 10:28:52 06/17/2025 13:18:56 5341 Manfred Shelton MD Main Office [address] [place] , [place] [address] 06/18/2025 10:16:09 06/18/2025 13:16:04 5358 Manfred Shelton MD Main Office [address] [place] , [place] [address] 06/19/2025 10:44:19 06/19/2025 14:15:39 5367 COLEAMN LAU NP Main Office [address] [place] , [place] [address] 06/22/2025 10:36:06 06/22/2025 14:32:28 Health Concerns Section Related Observation LastModified by Organization Detai ls LastModified Time None Recorded Concern Status LastModified by Organization Details LastModified Time None Recorded Payers Encounter Date Sequence Insurance Name Policy Number Policy Gonzales Covered Member ID Gonzales Member ID Guarantor Name 06/22/2025 2 [employer] [facility] Seema Delacruz [id number] Seema Delacruz 06/22/2025 1 [employer] Seema Delacruz [id number] Seema Delacruz OBGyn Episode No OBEpisode recorded.
--- OUTSIDE RECORDS SUMMARY | 2025-09-16 16:26 | XMS_ITS | Clinical Summary ---
[facility] Address [address] [place] [address] Care Team Providers Care Rib Chopper Name Role Phone Unavailable Primary Care Provider [...] Payer (Ef fective 2002-Present) Name:Seema Delacruz Member ID:[id number] Relation to Subscriber:Self Name:Seema Delacruz Subscriber ID:[id number] Payer ID:[id number] Group ID:Not on file Type:Not on file Address: [address]
--- OUTSIDE RECORDS SUMMARY | 2025-09-16 16:29 | XMS_ITS | Continuity of Care Document ---
Author Organization [place] [facility], Main Office Address [address] [place] [address] Care Team Providers [facility] Chief Executive Officer Name Role Phone STEPHY YUSUF Primary Care [...] Modified By Organization Details Last Modified Time 07/27/2025 [id number] BACKGROUND: Seema Delacruz is a 55 y.o. [...] Diagnosis: L97.512, E11.621 Session Notes: Today's Date 27Jul2025 HBOT session 58 of 60 Next HBOT 28Jul2025 30Jul - Patient cleared for 1st HBOT [...] antibiotics for an upper respiratory infection. Nicolasa EXTERNAL GRINDER 07Aug- Patient cleared for HBOT today. VS stable. PAtient had little trouble reaching pressure today, but had to come out of chamber early due to needing to use restroom. She managed to do 4 segs-118 minutes. [place].Tanner EXTERNAL GRINDER 08Aug - Patient cleared for HBOT today. VS stable. Patient completed full session with no problem. Antoinette Lau EXTERNAL GRINDER 11Aug - Patient cleared for HBOT today. [...] full session with no problem. Antoinette Lau EXTERNAL GRINDER 13Aug - Patient cleared for HBOT today. VS stable. Patient completed full session with no problem. Wound care to follow treatment today. Antoinette Lau APRN 14Aug - Patient cleared for HBOT today. VS stable. Patient completed full session with no problem. Antoinette Lau EXTERNAL GRINDER 15Aug - Patient cleared for HBOT today. [...] attempt to try again on Sunday. Nicolasa EXTERNAL GRINDER 18Aug - Patient cleared for HBOT today. VS stable. Patient completed full session with no problem. Antoinette Lau EXTERNAL GRINDER 19Aug - Patient deemed safe for HBOT [...] significant anxiety. Dressing change today per nursing. [facility] 25Aug - Patient deemed safe for HBOT [...] date andcompleted full session free of problem. [facility] 29Aug - Cleared for HBOT his date and completed full session free of problem. Of note, this patient continues to smoke tobacco cigarettes. [facility] 02Sep - Patient deemed safe for HBOT [...] above 80 and was discharged with 92. [facility] 08Sep - Patient deemed safe for HBOT today. VS stable. Patient completed full session with no problem. [place].Jessica Lau APRN 10Sep - Patient deemed safe for HBOT today. VS stable. Patient completed full session with no problem. Antoinette Lau APRN 11Sep - Patient cleared for HBOT today. VS stable. Patient completed full session with no problem. [place].Jessica Lau EXTERNAL GRINDER 12Sep - Found safe for HBOT this date. Completed curtailed session free of problem. Session shortened to satisfy demand of ride provider. [facility] 15Sep - Patient cleared for HBOT today. [...] full session with no problem. IsraelIlsa Lau EXTERNAL GRINDER 26Sep - Deemed safe for HBOT on this date and completed the full session uneventfully. [facility] 29Sep - Patient cleared for HBOT today. VS stable. Patient completed 3 Seg session with no problem. M.ADeepali Lau EXTERNAL GRINDER 30Sep - Patient cleared for HBOT today. VS stable. Patient completed full session with no problem. M.Jessica aLu EXTERNAL GRINDER 01Oct - Patient cleared for HBOT today. VS stable. Patient completed full session with no problem. M.Jessica Lau EXTERNAL GRINDER 02Oct - Cleared for HBOT this date and completed full session free of problem. [facility] 03Oct - Deemed safe for HBOT today and completed her full session without problem. [facility] 06Oct - Found safe for HBOT this date and tolerated her session free of problem. [facility] 07Oct- Cleared for HBOT this date and completed the full session without problem. [facility] 08Oct - Glu on arrival marginal so given caloric intake first and then cleared for HBOT this day. Had no problem completing full session emerging at Glu 139. [facility] 09Oct - Deemed safe for HBOT today and completed full session without problem. [facility] 14Oct - Patient returns after being out ill. Cleared for HBOT today. VS stable. Patient completed full session with no problem. [place].Jessica Lau EXTERNAL GRINDER 15Oct - Patient cleared for HBOT today. VS stable. Patient completed full session with no problem. M.Jessica Lau EXTERNAL GRINDER 16Oct - Patient cleared for HBOT today. VS stable. Patient completed full session with no problem. M.Jessica Lau EXTERNAL GRINDER 17Oct - Patient cleared for HBOT today. VS stable. Patient completed full session with no problem. [place].Jessica Lau EXTERNAL GRINDER 20Oct - Patient an hour late today due to transportation company. She can only do an hour, or she will not have a ride back home. Cleared for HBOT, VS stable. Finished 1 hour session with no issues or complaints. M.Tanner EXTERNAL GRINDER 21Oct - Patient cleared for HBOT today. VS stable. Patient completed full session with no problem. M.ADeepali Lau EXTERNAL GRINDER 22Oct - Patient cleared for HBOT today. VS stable. Patient completed full session with no problem. M.Jessica Lau EXTERNAL GRINDER 23Oct - Patient cleared for HBOT today. VS stable. Patient completed full session with no problem. Antoinette Lau EXTERNAL GRINDER 24Oct - Deemed safe for HBOT this date and did complete full session without problem. [facility] 27Oct - Patient cleared for HBOT today. [...] session with no other problem. Antoinette Lau EXTERNAL GRINDER Not available 07/27/2025 14:02:03 Reason for Referral None Reported. Results Created [...] Organization Details Recorded Time Upper respiratory infection 84666801 Active 2024 COLEMAN LAU NP null, [place] - [facility] 12:18:40 Episodic migraine [id number] 06 Active 2024 COLEMAN LAU NP null, [place] [facility] 12:34:01 Type 2 diabetes mellitus [id number] Active 2024 COLEMAN LAU NP null, [place] [facility] 15:27:12 Refractory migraine with aura [id number] Active 2024 COLEMAN LAU NP null, [place] [facility] 10:56:52 Recurrent acute frontal sinusitis Active 2024 COLEMAN LAU NP null, [place] [facility] 12:47:05 Candidiasis of vagina 80472216 Active 2024 COLEMAN LAU NP null, [place] - [facility] 12:47:26 Acute upper respiratory infection 32857765 Active 2024 COLEMAN LAU NP [place] - [facility] 12:32:57 Problem Notes None recorded. Procedures Surgical History Date Name Laterality Status Provider Name and Address Organization Details Recorded Time 09/15/20 [facility] Therapy Treatment Form completed Carolyn roland [place] - [facility] 09/15/2025 12:48:40 09/14/20 25 [facility] Therapy Treatment Form completed COLEMAN LAU NP [place] - [facility] 09/14/2025 14:54:43 09/07/20 25 [facility] Therapy Treatment Form completed Carolyn roland [place] - [facility] 09/07/2025 12:38:58 08/31/20 25 [facility] Therapy Treatment Form completed Carolyn roland [place] - [facility] 08/31/2025 12:48:46 08/25/20 25 [facility] Therapy Treatment Form completed Carolyn luan [place] - [facility] 08/25/2025 12:52:26 08/24/20 25 [facility] Therapy Treatment Form completed [facility] - [facility] 08/24/2025 12:53:43 08/17/20 25 [facility] Therapy Treatment Form completed [facility] - [facility] 08/17/2025 13:02:48 08/14/20 25 [facility] Therapy Treatment Form completed Lisadipesh Sosa [place] - [facility] 08/14/2025 12:43:08 08/13/20 25 [facility] Therapy Treatment Form completed Carolyn luan [place] - [facility] 08/13/2025 12:27:58 08/12/20 25 [facility] Therapy Treatment Form completed Carolyn luan [place] - [facility] 08/12/2025 12:36:02 08/12/20 25 Wound completed COLEMAN LAU NP [place] - [facility] 08/12/2025 14:15:15 08/11/20 25 [facility] Therapy Treatment Form completed [facility] - [facility] 08/11/2025 12:58:18 08/10/20 25 [facility] Therapy Treatment Form completed Carolyn luan [place] - [facility] 08/10/2025 12:57:23 08/04/20 25 [facility] Therapy Treatment Form completed COLEMAN JASBIR, [employer] [place] - [facility] 08/04/2025 13:51:50 08/03/20 [facility] Therapy Treatment Form completed COLEMAN LAU NP [place] - [facility] 08/03/2025 14:17:35 07/30/20 [facility] Therapy Treatment Form completed Carolyn roland [place] - [facility] 07/30/2025 12:38:27 07/29/20 [facility] Therapy Treatment Form completed Carolyn roland [place] - [facility] 07/29/2025 12:40:06 07/28/20 [...] [facility] Therapy Treatment Form completed [facility] [place] - [facility] 07/23/2025 12:41:49 07/22/20 [facility] Therapy Treatment Form completed [facility] [place] - [facility] 07/22/2025 12:53:32 07/21/20 [facility] Therapy Treatment Form completed [facility] [place] - [facility] 07/21/2025 12:43:55 07/20/20 [facility] Therapy Treatment Form completed [facility] [place] - [facility] 07/20/2025 12:58:21 [...] Carolyn roland [place] - [facility] 07/15/2025 12:39:29 07/14/20 [facility] Therapy Treatment Form completed COLEMAN LAU NP [place] - [facility] 07/14/2025 15:14:39 07/09/20 25 [facility] Therapy Treatment Form completed [facility] - [facility] 07/09/2025 12:46:05 07/08/20 25 [facility] Therapy Treatment Form completed [facility] - [facility] 07/08/2025 12:41:28 07/07/20 25 [facility] Therapy Treatment Form completed Manfred Shelton MD [place] - [facility] 07/08/2025 08:10:21 07/06/20 25 [facility] Therapy Treatment Form completed [facility] - [facility] [...] [facility] Therapy Treatment Form completed [facility] - [facility] 06/29/2025 13:24:58 06/26/20 25 [facility] Therapy Treatment Form completed Manfred Shelton MD [place] - [facility] 06/26/2025 16:57:55 06/25/20 25 [facility] Therapy Treatment Form completed [facility] - [facility] 06/25/2025 12:47:07 06/24/20 25 [facility] Therapy Treatment Form completed [facility] - [facility] 06/24/2025 12:40:20 06/23/20 25 [facility] Therapy Treatment Form completed [facility] - [facility] 06/23/2025 12:39:50 06/22/20 25 [facility] Therapy Treatment Form completed [facility] - [facility] 06/22/2025 12:49:55 06/19/20 25 [facility] Therapy Treatment Form completed Manfred Shelton MD [place] - [facility] 06/19/2025 14:13:24 06/18/20 25 [facility] Therapy Treatment Form completed COLEMAN LAU NP [place] - [facility] 06/18/2025 13:17:34 06/17/20 25 [facility] Therapy Treatment Form completed [facility] - [facility] 06/17/2025 12:29:15 06/16/20 25 [facility] Therapy Treatment Form completed [facility] - [facility] 06/16/2025 12:45:53 06/15/20 25 [facility] Therapy Treatment Form completed [facility] - [facility] 06/15/2025 12:47:07 06/12/20 25 [facility] Therapy Treatment Form completed Manfred Shelton MD [place] - [facility] 06/12/2025 14:54:52 06/11/20 25 [facility] Therapy Treatment Form completed [facility] - [facility] 06/11/2025 13:02:39 06/10/20 25 [facility] Therapy Treatment Form completed [facility] - [facility] 06/10/2025 12:50:18 06/08/20 25 [facility] Therapy Treatment Form completed [facility] - [facility] 06/08/2025 12:56:07 06/05/20 25 [facility] Therapy Treatment Form completed Evelia Winters [place] - [facility] 06/05/2025 14:28:16 06/04/20 25 Wound completed COLEMAN LAU NP [place] - [facility] 06/04/2025 14:24:29 06/04/20 25 [facility] Therapy Treatment Form completed COLEMAN LAU NP [place] - [facility] 06/04/2025 13:56:49 06/03/20 25 [facility] Therapy Treatment Form completed Evelia Winters [place] - [facility] 06/03/2025 14:11:11 06/02/20 25 [facility] Therapy Treatment Form completed [facility] - [facility] 06/02/2025 13:09:37 05/29/20 25 [facility] Therapy Treatment Form completed [facility] - [facility] 05/29/2025 12:25:31 05/28/20 25 [facility] Therapy Treatment Form completed [facility] - [facility] 05/28/2025 13:02:44 05/27/20 25 Wound completed COLEMAN LAU NP [place] - [facility] 05/27/2025 13:18:22 08/27/20 25 [facility] Therapy Treatment Form [...] Care 04/29/2025 13:00:12 Knee Replacement completed Luciana Gonzalesell [place] - [facility] 04/23/2025 14:32:38 [...] Not available Not available Not available 04/23/2025 01972 3 RxNorm Luciana Noriega null, [place] - [facility] 5 14:25:27 1104 Avelox medicatio n Not available Not available Not available 04/23/2025 96312 6 RxNorm Luciana Noriega null, [place] - [facility] 5 14:25:52 1105 metformin medicatio n other Not available low 04/23/20252023 6809 RxNorm GI issue s Luciana Noriega null, [place] - [facility] 14:26:11 1253 Product containin g angiotens in-conver ting enzyme inhibitor (product) medicatio n cough moderate Not available 06/26/2025 59653 009 SNOMED Not Available taisha - External Data Service - prod 5 10:54:20 1254 metformin hydrochlo ride medicatio n Not available Not available Not available 06/26/2025 55258 3 RxNorm Not Available taisha - External [...] medicatio n rash moderate Not available 07/15/2025 77373 2 RxNorm Not Available taisha - External Data Service - prod 5 10:18:57 1461 moxifloxa beck hydrochlo ride medicatio n Not available Not available Not available 08/24/20252015 19509 0 RxNorm Not Available taisha - External Data Service - prod 5 04:35:37 Medications [...] Updated DateTime 5 93 /min 16 /min 99.1 [degF] 92 % 92 /min 16 /min 98.1 [degF] 92 % 158/75 mm[Hg] 144/79 mm[Hg] [facility] - [facility] 5 12:41:33 Social History None recorded. Functional Status None [...] ICD10 Code Diagnosis IMO Codes Diagnosis Note [id number] Manfred Shelton MD Main Office [address] [place] [address] 06/29/2025 10:44:14 06/29/2025 13:39:12 [id number] Manfred Shelton MD Main Office [address] [place] [address] 06/30/2025 10:42:21 06/30/2025 13:46:39 [id number] Manfred Shelton MD Main Office [address] [place] [address] 07/01/2025 10:49:18 07/01/2025 13:25:24 [id number] Manfred Shelton MD Main Office [address] [place] [address] 07/02/2025 10:15:06 07/03/2025 07:21:23 [id number] Manfred Shelton MD Main Office [address] [place] [address] 07/03/2025 10:50:33 07/03/2025 17:53:35 [id number] Manfred Shelton MD Main Office [address] [place] [address] 07/06/2025 10:54:52 07/06/2025 14:37:01 [id number] Manfred Shelton MD Main Office [address] [place] [address] 07/07/2025 10:14:11 07/08/2025 08:12:24 [id number] Manfred Shelton MD Main Office [address] [place] [address] 07/08/2025 10:22:23 07/08/2025 19:57:51 [id number] Manfred Shelton MD Main Office [address] [place] [address] 07/09/2025 10:23:51 07/09/2025 16:04:46 [id number] Manfred Shelton MD Main Office [address] [place] [address] 07/14/2025 10:06:05 07/14/2025 15:15:47 [id number] Manfred Shelton MD Main Office [address] [place] [address] 07/15/2025 10:17:40 07/15/2025 13:26:46 [id number] Manfred Shelton MD Main Office [address] [place] [address] 07/15/2025 14:45:53 07/15/2025 14:48:12 [id number] Manfred Shelton MD Main Office [address] [place] [address] 07/16/2025 10:18:19 07/16/2025 14:20:47 [id number] Manfred Shelton MD Main Office [address] [place] [address] 07/17/2025 10:06:47 07/17/2025 14:10:36 Refractory migraine with aura 404065871 G43.817 [id number] Manfred Shelton MD Main Office [address] [place] [address] 07/20/2025 11:09:11 07/20/2025 14:45:37 [id number] Manfred Shelton MD Main Office [address] [place] [address] 07/21/2025 10:11:12 07/21/2025 12:49:36 [id number] Manfred Shelton MD Main Office [address] [place] [address] 07/22/2025 10:10:07 07/22/2025 13:11:46 [id number] Manfred Shelton MD Main Office [address] [place] [address] 07/23/2025 10:48:45 07/23/2025 15:03:21 [id number] Manfred Shelton MD Main Office [address] [place] [address] 07/24/2025 10:18:12 07/24/2025 17:58:24 [id number] Manfred Shelton MD Main Office [address] [place] [address] 07/27/2025 10:15:44 07/27/2025 14:05:56 Health Concerns Section Related Observation LastModified by Organization Detai ls LastModified Time None Recorded Concern Status LastModified by Organization Details LastModified Time None Recorded Payers Encounter Date Sequence Insurance Name Policy Number Policy Gonzales Covered Member ID Gonzales Member ID Guarantor Name 07/27/2025 2 [employer] Seema Delacruz [id number] Seema Delacruz 07/27/2025 1 [employer] Seema Delacruz [id number] Seema Delacruz OBGyn Episode No OBEpisode recorded.
--- OUTSIDE RECORDS SUMMARY | 2025-09-16 16:30 | XMS_ITS | Continuity of Care Document ---
Author Organization [place] [facility], Main Office Address [address] [place] [address] Care Team Providers Care Quality Assurance Advisor Name Role Phone STEPHY YUSUF Primary Care [...] Modified By Organization Details Last Modified Time 08/25/2025 [id number] BACKGROUND: Seema Delacruz is a 55 y.o. [...] Diagnosis: L97.512, E11.621 Session Notes: Today's Date 25Aug2025 HBOT session 71 of 80 Next HBOT 26Aug2025 30Jul - Patient cleared for 1st HBOT [...] antibiotics for an upper respiratory infection. Nicolasa FI[employer] SPRINKLER INSPECTOR 07Aug- Patient cleared for HBOT today. VS stable. PAtient had little trouble reaching pressure today, but had to come out of chamber early due to needing to use restroom. She managed to do 4 segs-118 minutes. [place].Tanner FIRE SPRINKLER INSPECTOR 08Aug - Patient cleared for HBOT today. VS stable. Patient completed full session with no problem. Antoinette Lau FI[employer] SPRINKLER INSPECTOR 11Aug - Patient cleared for HBOT today. [...] full session with no problem. Antoinette Lau FI[employer] SPRINKLER INSPECTOR 13Aug - Patient cleared for HBOT today. VS stable. Patient completed full session with no problem. Wound care to follow treatment today. Antoinette Lau APRN 14Aug - Patient cleared for HBOT today. VS stable. Patient completed full session with no problem. Antoinette Lau [employer]INKLER INSPECTOR 15Aug - Patient cleared for HBOT today. [...] attempt to try again on Sunday. Nicolasa FI[employer] SPRINKLER INSPECTOR 18Aug - Patient cleared for HBOT today. VS stable. Patient completed full session with no problem. Antoinette aLu FI[employer] SPRINKLER INSPECTOR 19Aug - Patient deemed safe for HBOT [...] significant anxiety. Dressing change today per nursing. [facility] 25Aug - Patient deemed safe for HBOT [...] date andcompleted full session free of problem. [facility] 29Aug - Cleared for HBOT his date and completed full session free of problem. Of note, this patient continues to smoke tobacco cigarettes. [facility] 02Sep - Patient deemed safe for HBOT [...] above 80 and was discharged with 92. [facility] 08Sep - Patient deemed safe for HBOT today. VS stable. Patient completed full session with no problem. [place].Jessica Lau APRN 10Sep - Patient deemed safe for HBOT today. VS stable. Patient completed full session with no problem. Antoinette Lau APRN 11Sep - Patient cleared for HBOT today. VS stable. Patient completed full session with no problem. [place].Jessica Lau [employer]INKLER INSPECTOR 12Sep - Found safe for HBOT this date. Completed curtailed session free of problem. Session shortened to satisfy demand of ride provider. [facility] 15Sep - Patient cleared for HBOT today. [...] full session with no problem. IsraelIlsa Lau FI[employer] SPRINKLER INSPECTOR 26Sep - Deemed safe for HBOT on this date and completed the full session uneventfully. [facility] 29Sep - Patient cleared for HBOT today. VS stable. Patient completed 3 Seg session with no problem. M.ADeepali Lau [employer]INKLER INSPECTOR 30Sep - Patient cleared for HBOT today. VS stable. Patient completed full session with no problem. M.Jessica Lau FI[employer] SPRINKLER INSPECTOR 01Oct - Patient cleared for HBOT today. VS stable. Patient completed full session with no problem. M.Jessica Lau FI[employer] SPRINKLER INSPECTOR 02Oct - Cleared for HBOT this date and completed full session free of problem. [facility] 03Oct - Deemed safe for HBOT today and completed her full session without problem. [facility] 06Oct - Found safe for HBOT this date and tolerated her session free of problem. [facility] 07Oct- Cleared for HBOT this date and completed the full session without problem. [facility] 08Oct - Glu on arrival marginal so given caloric intake first and then cleared for HBOT this day. Had no problem completing full session emerging at Glu 139. [facility] 09Oct - Deemed safe for HBOT today and completed full session without problem. [facility] 14Oct - Patient returns after being out ill. Cleared for HBOT today. VS stable. Patient completed full session with no problem. [place].Jessica Lau FI[employer] SPRINKLER INSPECTOR 15Oct - Patient cleared for HBOT today. VS stable. Patient completed full session with no problem. M.Jessica Lau FIRE SPRINKLER INSPECTOR 16Oct - Patient cleared for HBOT today. VS stable. Patient completed full session with no problem. M.Jessica Lau FI[employer] SPRINKLER INSPECTOR 17Oct - Patient cleared for HBOT today. VS stable. Patient completed full session with no problem. [place].Jessica Lau FI[employer] SPRINKLER INSPECTOR 20Oct - Patient an hour late today due to transportation company. She can only do an hour, or she will not have a ride back home. Cleared for HBOT, VS stable. Finished 1 hour session with no issues or complaints. M.Tanner FI[employer] SPRINKLER INSPECTOR 21Oct - Patient cleared for HBOT today. VS stable. Patient completed full session with no problem. M.ADeepali Lau FI[employer] SPRINKLER INSPECTOR 22Oct - Patient cleared for HBOT today. VS stable. Patient completed full session with no problem. M.Jessica Lau FI[employer] SPRINKLER INSPECTOR 23Oct - Patient cleared for HBOT today. VS stable. Patient completed full session with no problem. Antoinette Lau APRN 24Oct - Deemed safe for HBOT this date and did complete full session without problem. [facility] 27Oct - Patient cleared for HBOT today. [...] and completed full session free of problem. [facility] 31Oct - See E&M visit note 03Nov [...] 2.0 SANTY today with no issues. Antoinette Sotowood FI[employer] SPRINKLER INSPECTOR 05-07Nov - patient out ill - [facility] 10Nov - Patient deemed safe for HBOT today. VS stable. Patient completed full session with no issues or problem. [place].Monica. Judi FI[employer] SPRINKLER INSPECTOR 11Nov - Patient cleared for HBOT today. VS stable. Patient completed full session with no problem. [place].Monica. [place] FIRE SPRINKLER INSPECTOR 12Nov - Patient deemed safe for HBOT today. VS stable. Patient able to complete full session with no issues or problems. Wound care done after treatment today. [place].Monica. Judi FI[employer] SPRINKLER INSPECTOR 13Nov - Patient cleared for HBOT today. VS stable. Patient able to complete full session with no issues or problems. [place].Monica. Judi FI[employer] SPRINKLER INSPECTOR 14Nov - Deemed safe for HBOT today and completed full session uneventfully. Additional care: 02045-11 for DX L97.512 and Ell.621 - Following [...] nor deeper tissue infection. Patient states her educational technologist, Dr Ortiz, has already ordered MRI but [...] session with no issues or problems. [place].MonicaDeepali aLu FIRE SPRINKLER INSPECTOR 18-21Nov - patient out ill - [facility] 24Nov - Patient deemed safe for HBOT today. VS stable. Patient able to complete full session with no problems or issues. ClaytonJessica Lau FIRE SPRINKLER INSPECTOR 25Nov - Patient cleared for HBOT today. VS stable. Patient able to complete full session with no issues or problems. IsraelDeepaliMonicaDeepali Lau FIRE SPRINKLER INSPECTOR Not available 08/25/2025 13:49:04 Reason for Referral None Reported. Problems Name Problem SNOMED Code Status Onset Date Resolution Date Notes Provider Name and Address Organization Details Recorded Time Upper respiratory infection 52165944 Active 2024 COLEMAN LAU NP null, [place] [facility] 12:18:40 Episodic migraine 4362840277064 Active 2024 COLEMAN LAU NP null, [place] [facility] 12:34:01 Type 2 diabetes mellitus 26871980 Active 2024 COLEMAN LAU NP null, [place] [facility] 15:27:12 Refractory migraine with aura 321090876 Active 2024 COLEMAN LAU NP null, [place] [facility] 10:56:52 Recurrent acute frontal sinusitis Active 2024 COLEMAN LAU NP null, [place] [facility] 12:47:05 Candidiasis of vagina 30045128 Active 2024 COLEMAN LAU NP null, [place] [facility] 12:47:26 Acute upper respiratory infection 61052202 Active 2024 COLEMAN LAU NP [place], [place] [...] Carolyn roland [place] [facility] 09/07/2025 12:38:58 08/31/20 25 [facility] Therapy Treatment Form completed Carolyn roland [place] [facility] 08/31/2025 12:48:46 08/25/20 25 [facility] Therapy Treatment Form completed Carolyn roland [place] - [facility] 08/25/2025 12:52:26 08/24/20 25 [facility] Therapy Treatment Form completed Carolyn roland [place] - [facility] 08/24/2025 12:53:43 08/17/20 25 [facility] Therapy Treatment Form completed Carolyn roland [place] - [facility] 08/17/2025 13:02:48 08/14/20 25 [facility] Therapy Treatment Form completed Lisadipesh Sosa [place] - [facility] 08/14/2025 12:43:08 08/13/20 25 [facility] Therapy Treatment Form completed Carolyn roland [place] - [facility] 08/13/2025 12:27:58 08/12/20 25 [facility] Therapy Treatment Form completed Carolyn roland [place] - [facility] 08/12/2025 12:36:02 08/12/20 25 Wound completed COLEMAN LAU NP [place] [facility] 08/12/2025 14:15:15 08/11/20 25 [facility] Therapy Treatment Form completed Carolyn roland [place] - [facility] 08/11/2025 12:58:18 08/10/20 25 [facility] Therapy Treatment Form completed Carolyn roland [place] - [facility] 08/10/2025 12:57:23 08/04/20 25 [facility] Therapy Treatment Form completed COLEMAN LAU NP [place] [facility] 08/04/2025 13:51:50 08/03/20 25 [facility] Therapy Treatment Form completed COLEMAN LAU NP [place] [facility] 08/03/2025 14:17:35 07/30/20 25 [facility] Therapy Treatment Form completed Carolyn roland [place] - [facility] 07/30/2025 12:38:27 07/29/20 25 [facility] Therapy Treatment Form completed Carolyn BERNAL - [facility] 07/29/2025 12:40:06 07/28/20 [...] [facility] - [facility] 07/23/2025 12:41:49 07/22/20 25 [facility] Therapy Treatment Form completed [facility] - [facility] 07/22/2025 12:53:32 07/21/20 25 [facility] Therapy Treatment Form completed [facility] - [facility] 07/21/2025 12:43:55 07/20/20 [facility] Therapy Treatment Form completed [facility] - [facility] 07/20/2025 [...] [facility] - [facility] 07/15/2025 12:39:29 07/14/20 25 [facility] Therapy Treatment Form completed COLEMAN LAU NP [place] [facility] 07/14/2025 15:14:39 07/09/20 25 [facility] Therapy Treatment Form completed [facility] - [facility] 07/09/2025 12:46:05 07/08/20 25 [facility] Therapy Treatment Form completed [facility] - [facility] 07/08/2025 12:41:28 07/07/20 25 [facility] Therapy Treatment Form completed Manfred Shelton MD [place] - [facility] 07/08/2025 08:10:21 07/06/20 25 [facility] Therapy Treatment Form completed Carolyn luan [place] - [facility] 07/06/2025 13:06:29 07/03/20 [...] Therapy Treatment Form completed COLEMAN LAU NP [place] - [facility] 06/30/2025 13:46:12 06/29/20 25 [facility] Therapy Treatment Form completed [facility] - [facility] 06/29/2025 13:24:58 06/26/20 25 [facility] Therapy Treatment Form completed Manfred Shelton MD [place] - [facility] 06/26/2025 16:57:55 06/25/20 [...] Therapy Treatment Form completed Manfred Shelton MD [place] - [facility] 06/19/2025 14:13:24 06/18/20 25 [facility] Therapy Treatment Form completed COLEMAN LAU NP [place] - [facility] 06/18/2025 13:17:34 06/17/20 25 [facility] Therapy Treatment Form completed [facility] - [facility] 06/17/2025 12:29:15 06/16/20 25 [facility] Therapy Treatment Form completed [facility] - [facility] 06/16/2025 12:45:53 06/15/20 25 [facility] Therapy Treatment Form completed [facility] - [facility] 06/15/2025 12:47:07 06/12/20 25 [facility] Therapy Treatment Form completed Manfred Shelton MD [place] - [facility] 06/12/2025 14:54:52 06/11/20 25 [facility] Therapy Treatment Form completed [facility] - [facility] 06/11/2025 13:02:39 06/10/20 25 [facility] Therapy Treatment Form completed Carolyn roland [place] - [facility] 06/10/2025 12:50:18 06/08/20 25 [facility] Therapy Treatment Form completed Carolyn roland [place] - [facility] 06/08/2025 12:56:07 06/05/20 [...] Care Therapy Treatment Form completed Carolyn roland [place] - [facility] 06/02/2025 13:09:37 05/29/20 25 [facility] Therapy Treatment Form completed [facility] [place] [facility] 05/29/2025 12:25:31 05/28/20 25 [facility] Therapy Treatment Form completed Carolyn luan [place] - [facility] 05/28/2025 13:02:44 05/27/20 25 Wound completed COLEMAN LAU NP [place] [facility] 05/27/2025 13:18:22 05/27/20 25 [facility] Therapy Treatment Form completed [facility] [place] [facility] 05/27/2025 12:50:01 05/26/20 25 Nurse Note completed Luciana Noriega [place] - [facility] 05/26/2025 16:40:42 05/26/20 25 [facility] Therapy Treatment Form completed Carolyn luan [place] - [facility] 05/26/2025 12:27:56 05/25/20 25 [facility] Therapy Treatment Form completed [facility] - [facility] 05/25/2025 13:12:32 05/22/20 25 [facility] Therapy Treatment Form completed [facility] - [facility] 05/22/2025 12:33:28 05/21/20 25 [facility] Therapy Treatment Form completed [facility] - [facility] 05/21/2025 12:47:49 [...] Oxygen Care Therapy Treatment Form completed COLEMAN SOTOABDOULAEY [place] [facility] 04/30/2025 14:18:39 [...] Not available Not available Not available 04/23/2025 74522 3 RxNorm Luciana servin, [place] - [facility] 14:25:27 1104 Avelox medicatio n Not available Not available Not available 04/23/2025 54421 6 RxNorm Luciana servin, [place] - [facility] 14:25:52 1105 metformin medicatio n other Not available [facility] 04/23/20252023 6809 RxNorm GI issue s Luciana Noriega null, [place] - [facility] 14:26:11 1253 Product containin g angiotens in-conver ting enzyme inhibitor (product) medicatio n cough moderate Not available 06/26/2025 73837 009 SNOMED Not Available taisha - [employer] - prod 5 10:54:20 1254 metformin hydrochlo ride medicatio n Not available Not available Not available 06/26/2025 67321 3 RxNorm Not Available taisha - [employer] - prod 5 10:54:20 1358 ceftriaxo ne medicatio n rash moderate Not available 07/15/2025 2193 RxNorm Not Available taisha - [employer] - prod 10:18:57 1359 droperido l medicatio n dyspnea Not available Not available 07/15/2025 3648 RxNorm Not Available [employer] Data [employer] - prod 5 10:18:57 1360 moxifloxa beck medicatio n rash moderate Not available 07/15/2025 09191 2 RxNorm Not Available [employer] Data [employer] - prod 5 10:18:57 1461 moxifloxa beck hydrochlo ride medicatio n Not available Not available Not available 08/24/20252015 07443 0 RxNorm Not Available [facility] [facility] [employer] Data [employer] - prod 5 04:35:37 Medications [...] Updated DateTime 5 84 /min 16 /min 98.6 [degF] 94 % 85 /min 16 /min 98.4 [degF] 92 % 176/85 mm[Hg] 169/93 mm[Hg] Carolyn luan [place] - [facility] 5 12:52:44 Social History None recorded. Functional Status None [...] ICD10 Code Diagnosis IMO Codes Diagnosis Note [id number] Manfred Shelton MD Main Office [address] [address] 07/27/2025 10:15:44 07/27/2025 14:05:56 [id number] Manfred Shelton MD Main Office [address] [address] 07/28/2025 10:36:12 07/28/2025 13:58:27 [id number] Manfred Shelton MD Main Office [address] [address] 07/29/2025 10:14:56 07/29/2025 13:38:02 [id number] Manfred Shelton MD Main Office [address] [place] [address] 07/30/2025 10:32:11 07/31/2025 08:45:48 [id number] Manfred Shelton MD Main Office [address] [place] [address] 08/01/2025 08:56:19 08/01/2025 09:05:22 [id number] Manfred Shelton MD Main Office [address] [place] [address] 08/03/2025 10:12:43 08/03/2025 14:18:16 [id number] Manfred Shelton MD Main Office [address] [place] [address] 08/04/2025 10:18:33 08/04/2025 13:52:38 [id number] Manfred Shelton MD Main Office [address] [place] [address] 08/10/2025 10:19:50 08/10/2025 13:54:24 [id number] Manfred Shelton MD Main Office [address] [place] [address] 08/11/2025 10:13:33 08/11/2025 14:13:40 [id number] Manfred Shelton MD Main Office [address] [place] [address] 08/12/2025 10:17:32 08/12/2025 14:16:09 [id number] Manfred Shelton MD Main Office [address] [place] [address] 08/13/2025 09:43:21 08/13/2025 15:50:31 [id number] Manfred Shelton MD Main Office [address] [place] [address] 08/14/2025 10:42:31 08/14/2025 19:25:25 [id number] Manfred Shelton MD Main Office [address] [place] [address] 08/17/2025 10:11:40 08/17/2025 13:45:10 [id number] Manfred Shelton MD Main Office [address] [place] [address] 08/24/2025 10:23:30 08/24/2025 13:10:50 [id number] Manfred Shelton MD Main Office [address] [place] [address] 08/25/2025 10:36:28 08/25/2025 13:49:08 Health Concerns Section Related Observation LastModified by Organization Detai ls LastModified Time None Recorded Concern Status LastModified by Organization Details LastModified Time None Recorded Payers Encounter Date Sequence Insurance Name Policy Number Policy Gonzales Covered Member ID Gonzales Member ID Guarantor Name 08/25/2025 2 [employer] [facility] Seema Delacruz [id number] Seema Delacruz 08/25/2025 1 [employer] Seema Delacruz [id number] Seema Delacruz OBGyn Episode No OBEpisode recorded.
--- OUTSIDE RECORDS SUMMARY | 2025-09-16 16:30 | XMS_ITS | Continuity of Care Document ---
Author Organization [place] - [facility], Main Office Address [address] [place] [address] Care Team Providers Care Data Control Clerk Name Role Phone STEPHY YUSUF Primary [...] Modified By Organization Details Last Modified Time 09/15/2025 4264 BACKGROUND: Seema Delacruz is a 55 y.o. [...] Diagnosis: L97.512, E11.621 Session Notes: Today's Date [id number] HBOT session 75 of 80 Next HBOT [id number] 30Jul - Patient cleared for 1st HBOT [...] full session with no problem. Antoinette Lau METAL CLEANER 04Aug - Patient deemed safe for [...] antibiotics for an upper respiratory infection. Nicolasa METAL CLEANER 07Aug- Patient cleared for HBOT today. VS stable. PAtient had little trouble reaching pressure today, but had to come out of chamber early due to needing to use restroom. She managed to do 4 segs-118 minutes. [place].Tanner METAL CLEANER 08Aug - Patient cleared for HBOT today. VS stable. Patient completed full session with no problem. Antoinette Lau METAL CLEANER 11Aug - Patient cleared for HBOT [...] full session with no problem. Antoinette Lau METAL CLEANER 13Aug - Patient cleared for HBOT today. VS stable. Patient completed full session with no problem. Wound care to follow treatment today. Antoinette Lau APRN 14Aug - Patient cleared for HBOT today. VS stable. Patient completed full session with no problem. Antoinette Lau METAL CLEANER 15Aug - Patient cleared for HBOT [...] attempt to try again on Sunday. Nicolasa METAL CLEANER 18Aug - Patient cleared for HBOT today. VS stable. Patient completed full session with no problem. Antoinette Lau METAL CLEANER 19Aug - Patient deemed safe for HBOT today. VS stable. FSBS within range. Patient completed full session with no problem. Antoinette Lau METAL CLEANER 2015Aug - Patient cleared for HBOT today. [...] significant anxiety. Dressing change today per nursing. [facility] 25Aug - Patient deemed safe for HBOT [...] date andcompleted full session free of problem. [facility] 29Aug - Cleared for HBOT his date and completed full session free of problem. Of note, this patient continues to smoke tobacco cigarettes. [facility] 02Sep - Patient deemed safe for HBOT [...] above 80 and was discharged with 92. [facility] 08Sep - Patient deemed safe for HBOT [...] shortened to satisfy demand of ride provider. [facility] 15Sep - Patient cleared for HBOT today. [...] was to proceed to another medical appointment. [facility] 22Sep - Patient cleared for HBOT today. [...] full session with no problem. MIlsa Lau METAL CLEANER 26Sep - Deemed safe for HBOT on this date and completed the full session uneventfully. [facility] 29Sep - Patient cleared for HBOT today. VS stable. Patient completed 3 Seg session with no problem. M.Jessica Lau METAL CLEANER 30Sep - Patient cleared for HBOT today. VS stable. Patient completed full session with no problem. M.Jessica Lau METAL CLEANER 01Oct - Patient cleared for HBOT today. VS stable. Patient completed full session with no problem. M.Jessica Lau METAL CLEANER 02Oct - Cleared for HBOT this date and completed full session free of problem. [facility] 03Oct - Deemed safe for HBOT today and completed her full session without problem. [facility] 06Oct - Found safe for HBOT this date and tolerated her session free of problem. [facility] 07Oct- Cleared for HBOT this date and completed the full session without problem. [facility] 08Oct - Glu on arrival marginal so given caloric intake first and then cleared for HBOT this day. Had no problem completing full session emerging at Glu 139. [facility] 09Oct - Deemed safe for HBOT today and completed full session without problem. [facility] 14Oct - Patient returns after being out ill. Cleared for HBOT today. VS stable. Patient completed full session with no problem. Antoinette Lau METAL CLEANER 15Oct - Patient cleared for HBOT today. VS stable. Patient completed full session with no problem. M.Jessica Lau METAL CLEANER 16Oct - Patient cleared for HBOT today. VS stable. Patient completed full session with no problem. M.Jessica Lau METAL CLEANER 17Oct - Patient cleared for HBOT today. VS stable. Patient completed full session with no problem. [place].Jessica Lau METAL CLEANER 20Oct - Patient an hour late today due to transportation company. She can only do an hour, or she will not have a ride back home. Cleared for HBOT, VS stable. Finished 1 hour session with no issues or complaints. M.Tanner METAL CLEANER 21Oct - Patient cleared for HBOT today. VS stable. Patient completed full session with no problem. M.Jessica Lau METAL CLEANER 22Oct - Patient cleared for HBOT today. VS stable. Patient completed full session with no problem. Antoinette Lau APRN 23Oct - Patient cleared for HBOT today. VS stable. Patient completed full session with no problem. Antoinette Lau APRN 24Oct - Deemed safe for HBOT this date and did complete full session without problem. [facility] 27Oct - Patient cleared for HBOT today. [...] SANTY today with no issues. M.Jessica SotoJudi METAL CLEANER 05-07Nov - patient out ill - [facility] 10Nov - Patient deemed safe for HBOT today. VS stable. Patient completed full session with no issues or problem. [place].Monica. Judi METAL CLEANER 11Nov - Patient cleared for HBOT today. VS stable. Patient completed full session with no problem. [place].Monica. [place] METAL CLEANER 12Nov - Patient deemed safe for HBOT today. VS stable. Patient able to complete full session with no issues or problems. Wound care done after treatment today. [place].Monica. Judi METAL CLEANER 13Nov - Patient cleared for HBOT today. VS stable. Patient able to complete full session with no issues or problems. [place].Monica. Judi METAL CLEANER 14Nov - Deemed safe for HBOT today and completed full session uneventfully. Additional care: [id number] for DX L97.512 and Ell.621 - Following [...] nor deeper tissue infection. 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 [place].MonicaDeepali [place] METAL CLEANER 18-21Nov - patient out ill - [facility] 24Nov - Patient deemed safe for HBOT today. VS stable. Patient able to complete full session with no problems or issues. Antoinette Lau METAL CLEANER 25Nov - Patient cleared for HBOT today. VS stable. Patient able to complete full session with no issues or problems. Antoinette Lau METAL CLEANER 01Dec - Patient deemed safe for HBOT today. VS stable. Patient able to complete full session with no problems or issues. Antoinette Lau METAL CLEANER 02-07Dec - Patient out due to illness - [facility] 08Dec - Patient cleared for HBOT today. VS stable. Patient able to complete full session with no issues. Antoinette Lau METAL CLEANER 15Dec - Patient cleared for HBOT today. [...] no other problems or issues. Antoinette Lau METAL CLEANER 16Dec - Patient deemed safe for HBOT today. VS stable. Patient able to complete full session with no issues or problems. Antoinette Lau METAL CLEANER Not available 09/15/2025 12:55:12 Reason for Referral None Reported. Problems Name Problem SNOMED Code Status Onset Date Resolution Date Notes Provider Name and Address Organization Details Recorded Time Upper respiratory infection [id number] Active 2024 COLEMAN LAU NP null, [place] - [facility] 12:18:40 Episodic migraine [id number] 06 Active 2024 COLEMAN LAU NP null, [place] - [facility] 12:34:01 Type 2 diabetes mellitus 19522913 Active 2024 COLEMAN LAU NP null, [place] - [facility] 15:27:12 Refractory migraine with aura 102975067 Active 2024 COLEMAN LAU NP null, [place] - [facility] 10:56:52 Recurrent acute frontal sinusitis Active 2024 COLEMAN LAU NP null, [place] [facility] 5 12:47:05 Candidiasis of vagina 90119306 Active 2024 COLEMAN LAU NP malathi, [place] - [facility] 12:47:26 Acute upper respiratory infection 56485373 Active 2024 COLEMAN LAU NP malathi, [place] - [facility] 12:32:57 Problem Notes None recorded. Procedures Surgical History Date Name Laterality Status Provider Name and Address Organization Details Recorded Time 09/15/20 [facility] Therapy Treatment Form completed [facility] - [facility] 09/15/2025 12:48:40 09/14/20 25 [facility] Therapy Treatment Form completed COLEMAN LAU NP [place] - [facility] 09/14/2025 14:54:43 09/07/20 25 [facility] Therapy Treatment Form completed [facility] - [facility] 09/07/2025 12:38:58 08/31/20 25 [facility] Therapy Treatment Form completed [facility] - [facility] 08/31/2025 12:48:46 08/25/20 25 [facility] Therapy Treatment Form completed [facility] - [facility] 08/25/2025 12:52:26 08/24/20 25 [facility] Therapy Treatment Form completed [facility] - [facility] 08/24/2025 12:53:43 08/17/20 25 [facility] Therapy Treatment Form completed [facility] - [facility] 08/17/2025 13:02:48 08/14/20 25 [facility] Therapy Treatment Form completed Lisa Sosa [place] [facility] 08/14/2025 12:43:08 08/13/20 25 [facility] Therapy Treatment Form completed [facility] - [facility] 08/13/2025 12:27:58 08/12/20 25 [facility] Therapy Treatment Form completed [facility] - [facility] 08/12/2025 12:36:02 08/12/20 25 Wound completed COLEMAN LAU NP [place] - [facility] 08/12/2025 14:15:15 08/11/20 25 [facility] Therapy Treatment Form completed [facility] - [facility] 08/11/2025 12:58:18 08/10/20 25 [facility] Therapy Treatment Form completed [facility] - [facility] 08/10/2025 12:57:23 08/04/20 [facility] Therapy Treatment Form completed COLEMAN LAU NP [place] - [facility] 08/04/2025 13:51:50 08/03/20 [facility] Therapy Treatment Form completed COLEMAN LAU NP [place] [facility] 08/03/2025 14:17:35 07/30/20 [facility] Therapy Treatment Form completed Carolyn roland [place] [facility] 07/30/2025 12:38:27 07/29/20 [facility] Therapy Treatment Form completed Carolyn roland [place] [facility] 07/29/2025 12:40:06 07/28/20 [...] Treatment Form completed [facility] - [facility] 07/23/2025 12:41:49 07/22/20 [facility] Therapy Treatment Form completed [facility] - [facility] 07/22/2025 12:53:32 07/21/20 [facility] Therapy Treatment Form completed [facility] - [facility] 07/21/2025 12:43:55 07/20/20 [facility] Therapy Treatment Form completed [facility] 07/20/2025 12:58:21 07/17/20 [facility] Therapy Treatment Form completed Lisa Sosa [place] - [facility] 07/17/2025 12:35:46 07/16/20 [facility] Therapy Treatment Form completed Frank Gage [place] - [facility] 07/16/2025 16:54:47 07/15/20 Wound completed COLEMAN LAU NP [place] - [facility] 07/15/2025 14:47:28 07/15/20 [facility] Therapy Treatment Form completed Carolyn roland [place] [facility] 07/15/2025 12:39:29 07/14/20 25 [facility] Therapy Treatment Form completed COLEMAN LAU NP [place] [facility] 07/14/2025 15:14:39 07/09/20 25 [facility] Therapy Treatment Form completed [facility] - [facility] 07/09/2025 12:46:05 07/08/20 25 [facility] Therapy Treatment Form completed [facility] 07/08/2025 12:41:28 07/07/20 25 [facility] Therapy Treatment Form completed Manfred Shelton [place] [facility] 07/08/2025 08:10:21 07/06/20 25 [facility] Therapy Treatment Form completed [facility] - [facility] 07/06/2025 13:06:29 07/03/20 25 [facility] Therapy Treatment Form completed Paula Licea [place] [facility] 07/03/2025 12:47:29 07/02/20 25 [facility] Therapy Treatment Form completed Paula Licea [place] [facility] 07/02/2025 13:06:39 07/01/20 25 [facility] Therapy Treatment Form completed Paula Licea [place] [facility] 07/01/2025 13:05:37 06/30/20 25 [facility] Therapy Treatment Form completed COLEMAN LAU NP [place] [facility] 06/30/2025 13:46:12 06/29/20 25 [facility] Therapy Treatment Form completed [facility] - [facility] 06/29/2025 13:24:58 06/26/20 25 [facility] Therapy Treatment Form completed Manfred Shelton [place] [facility] 06/26/2025 16:57:55 06/25/20 25 [facility] Therapy Treatment Form completed [facility] - [facility] 06/25/2025 12:47:07 06/24/20 25 [facility] Therapy Treatment Form completed [facility] - [facility] 06/24/2025 12:40:20 06/23/20 25 [facility] Therapy Treatment Form completed [facility] - [facility] 06/23/2025 12:39:50 06/22/20 25 [facility] Therapy Treatment Form completed [facility] 06/22/2025 12:49:55 06/19/20 25 [facility] Therapy Treatment Form completed Manfred Shelton [place] [facility] 06/19/2025 14:13:24 06/18/20 25 [facility] Therapy Treatment Form completed ABDOULAYE [facility] - [facility] 06/18/2025 13:17:34 06/17/20 25 [facility] Therapy Treatment Form completed [facility] 06/17/2025 12:29:15 06/16/20 25 [facility] Therapy Treatment Form completed [facility] 06/16/2025 12:45:53 06/15/20 25 [facility] Therapy Treatment Form completed [facility] 06/15/2025 12:47:07 06/12/20 25 [facility] Therapy Treatment Form completed Manfred Shelton MD [place] - [facility] 06/12/2025 14:54:52 06/11/20 25 [facility] Therapy Treatment Form completed [facility] 06/11/2025 13:02:39 06/10/20 25 [facility] Therapy Treatment Form completed [facility] 06/10/2025 12:50:18 06/08/20 25 [facility] Therapy Treatment Form completed [facility] 06/08/2025 [...] Care Therapy Treatment Form completed Eveliapatricia Winters [place] [facility] 06/03/2025 14:11:11 06/02/20 25 [facility] Therapy Treatment Form completed [facility] - [facility] 06/02/2025 13:09:37 05/29/20 25 [facility] Therapy Treatment Form completed [facility] 05/29/2025 12:25:31 05/28/20 25 [facility] Therapy Treatment Form completed [facility] 05/28/2025 13:02:44 05/27/20 25 Wound completed COLEMAN JUDI, [employer] [place] - [facility] 05/27/2025 13:18:22 [...] [facility] Therapy Treatment Form completed Caroyln rloand [place] - [facility] 05/22/2025 12:33:28 [...] Moraima Moses [place] - [facility] 05/13/2025 13:30:22 05/12/20 [...] Mary Miranda [place] - [facility] 05/07/2025 13:01:51 [...] Not available Not available Not available 04/23/2025 13333 3 RxNorm Luciana Noriega null, [place] - [facility] 5 14:25:27 1104 Avelox medicatio n Not available Not available Not available 04/23/2025 01161 6 RxNorm Luciana Noriega null, [place] - [facility] 5 14:25:52 1105 metformin medicatio n other Not available low 04/23/20252023 6809 RxNorm GI issue s Luciana Noriega null, [place] - [facility] 5 14:26:11 1253 Product containin g angiotens in-conver ting enzyme inhibitor (product) medicatio n cough moderate Not available 06/26/2025 82084 009 SNOMED Not Available taisha - External Data Service - prod 5 10:54:20 1254 metformin hydrochlo ride medicatio n Not available Not available Not available 06/26/2025 20690 3 RxNorm Not Available taisha - External [...] medicatio n rash moderate Not available 07/15/2025 14518 2 RxNorm Not Available taisha - External Data Service - prod 5 10:18:57 1461 moxifloxa beck hydrochlo ride medicatio n Not available Not available Not available 08/24/20252015 11019 0 RxNorm Not Available taisha - External [...] Address Organization Details Last Updated DateTime 5 91 /min 16 /min 98.8 [degF] 89 % 88 /min 16 /min 98.2 [degF] 90 % 167/77 mm[Hg] 151/75 mm[Hg] [facility] 5 12:48:54 Social History None recorded. Functional Status None [...] MD Main Office [address] [place] [address] 08/17/2025 10:11:40 08/17/2025 13:45:10 [id number] Manfred Shelton MD Main Office [address] [place] [address] 08/24/2025 10:23:30 08/24/2025 13:10:50 [id number] Manfred Shelton MD Main Office [address] [place] [address] 08/25/2025 10:36:28 08/25/2025 13:49:08 [id number] Manfred Shelton MD Main Office [address] [place] [address] 08/31/2025 10:01:37 08/31/2025 13:53:53 [id number] Manfred Shelton MD Main Office [address] [place] [address] 09/07/2025 10:18:13 09/07/2025 14:13:47 [id number] Manfred Shelton MD Main Office [address] [place] [address] 09/14/2025 10:07:01 09/14/2025 14:56:01 [id number] Manfred Shelton MD Main Office [address] [place] [address] 09/15/2025 10:26:49 09/15/2025 12:55:24 Health Concerns Section Related Observation LastModified by Organization Detai ls LastModified Time None Recorded Concern Status LastModified by Organization Details LastModified Time None Recorded Payers Encounter Date Sequence Insurance Name Policy Number Policy Gonzales Covered Member ID Gonzales Member ID Guarantor Name 09/15/2025 2 [employer] Seema Delacruz [id number] eSema Delacruz 09/15/2025 1 SAVANNA Osullivantis [id number] Seema Delacruz OBGyn Episode No OBEpisode recorded.
--- OUTSIDE RECORDS SUMMARY | 2025-09-16 16:30 | XMS_ITS | Continuity of Care Document ---
Author Organization [place] - [facility], Main Office Address [address] [place] [address] Care Team Providers Care Bias Binding Folder Name Role Phone STEPHY YUSUF Primary Care Provider [phone] Assessment No assessment recorded. Plan of Treatment [...] Modified By Organization Details Last Modified Time 07/08/2025 55 BACKGROUND: Seema Delacruz is a 55 y.o. [...] Diagnosis: L97.512, E11.621 Session Notes: Today's Date 08Jul2025 HBOT session 47 of 60 Next HBOT 09Jul2025 30Jul - Patient cleared for 1st HBOT [...] antibiotics for an upper respiratory infection. Nicolasa AIR MOTOR REPAIRER 07Aug- Patient cleared for HBOT today. VS stable. PAtient had little trouble reaching pressure today, but had to come out of chamber early due to needing to use restroom. She managed to do 4 segs-118 minutes. [place].Tanner AIR MOTOR REPAIRER 08Aug - Patient cleared for HBOT today. VS stable. Patient completed full session with no problem. Antoinette Lau AIR MOTOR REPAIRER 11Aug - Patient cleared for HBOT [...] full session with no problem. Antoinette Lau AIR MOTOR REPAIRER 13Aug - Patient cleared for HBOT today. VS stable. Patient completed full session with no problem. Wound care to follow treatment today. Antoinette Lau APRN 14Aug - Patient cleared for HBOT today. VS stable. Patient completed full session with no problem. Antoinette Lau AIR MOTOR REPAIRER 15Aug - Patient cleared for HBOT today. [...] attempt to try again on Sunday. Nicolasa AIR MOTOR REPAIRER 18Aug - Patient cleared for HBOT today. VS stable. Patient completed full session with no problem. Antoinette Lau AIR MOTOR REPAIRER 19Aug - Patient deemed safe for HBOT [...] significant anxiety. Dressing change today per nursing. [facility] 25Aug - Patient deemed [...] date andcompleted full session free of problem. [facility] 29Aug - Cleared for HBOT his date and completed full session free of problem. Of note, this patient continues to smoke tobacco cigarettes. [facility] 02Sep - Patient deemed [...] above 80 and was discharged with 92. [facility] 08Sep - Patient deemed safe for HBOT today. VS stable. Patient completed full session with no problem. [place].Jessica Lau APRN 10Sep - Patient deemed safe for HBOT today. VS stable. Patient completed full session with no problem. Antoinette Lau APRN 11Sep - Patient cleared for HBOT today. VS stable. Patient completed full session with no problem. [place].Jessica Lau AIR MOTOR REPAIRER 12Sep - Found safe for HBOT this date. Completed curtailed session free of problem. Session shortened to satisfy demand of ride provider. [facility] 15Sep - Patient cleared [...] full session with no problem. [place].Jessica Lau AIR MOTOR REPAIRER 26Sep - Deemed safe for HBOT on this date and completed the full session uneventfully. Estefania WATERS 29Sep - Patient cleared for HBOT today. VS stable. Patient completed 3 Seg session with no problem. M.Jessica Lau AIR MOTOR REPAIRER 30Sep - Patient cleared for HBOT today. VS stable. Patient completed full session with no problem. [place].Jessica Lau AIR MOTOR REPAIRER 01Oct - Patient cleared for HBOT today. VS stable. Patient completed full session with no problem. [place].Jessica Lau AIR MOTOR REPAIRER 02Oct - Cleared for HBOT this date and completed full session free of problem. [facility] 03Oct - Deemed safe for HBOT today and completed her full session without problem. [facility] 06Oct - Found safe for HBOT this date and tolerated her session free of problem. Estefania WATERS 07Oct- Cleared for HBOT this date and completed the full session without problem. [facility] 08Oct - Glu on arrival marginal so given caloric intake first and then cleared for HBOT this day. Had no problem completing full session emerging at Glu 139. [facility] [email or web address] Not available 07/08/2025 19:57:34 Reason for Referral None Reported. Problems Name Problem SNOMED Code Status Onset Date Resolution Date Notes Provider Name and Address Organization Details Recorded Time Upper respiratory infection 89460253 Active 2024 COLEMAN LAU NP null, [place] - [facility] 12:18:40 Episodic migraine 8227192859649 06 Active 2024 COLEMAN LAU NP null, [place] - [facility] 12:34:01 Type 2 diabetes mellitus 17651728 Active 2024 COLEMAN LAU NP null, [place] - [facility] 15:27:12 Refractory migraine with aura 505827896 Active 2024 COLEMAN LAU NP null, [place] - [facility] 10:56:52 Recurrent acute frontal sinusitis Active 2024 COLEMAN LAU NP null, [place] - [facility] 12:47:05 Candidiasis of vagina 97262457 Active 2024 ABDOULAYE HAQ[place] - [facility] 12:47:26 Acute upper respiratory infection 72979363 Active 2024 COLEMAN LAU NP [place] - [facility] 12:32:57 Problem Notes None recorded. Procedures Surgical History Date Name Laterality Status Provider Name and Address Organization Details Recorded Time 09/15/20 [facility] Therapy Treatment Form completed Carolyn roland [place] - [facility] 09/15/2025 12:48:40 09/14/20 25 [facility] Therapy Treatment Form completed COLEMAN LAU NP [place] - [facility] 09/14/2025 14:54:43 09/07/20 25 [facility] Therapy Treatment Form completed Carolyn roland [place] - [facility] 09/07/2025 12:38:58 08/31/20 25 [facility] Therapy Treatment Form completed Carolyn roland [place] - [facility] 08/31/2025 12:48:46 08/25/20 25 [facility] Therapy Treatment Form completed Carolyn luan [place] - [facility] 08/25/2025 12:52:26 08/24/20 25 [facility] Therapy Treatment Form completed [facility] [place] - [facility] 08/24/2025 12:53:43 08/17/20 25 [facility] Therapy Treatment Form completed [facility] [place] - [facility] 08/17/2025 13:02:48 08/14/20 25 [facility] Therapy Treatment Form completed Lisadipesh Sosa [place] - [facility] 08/14/2025 12:43:08 08/13/20 25 [facility] Therapy Treatment Form completed [facility] - [facility] 08/13/2025 12:27:58 08/12/20 25 [facility] Therapy Treatment Form completed Carolyn luan [place] - [facility] 08/12/2025 12:36:02 08/12/20 25 Wound completed COLEMAN LAU NP [place] - [facility] 08/12/2025 14:15:15 08/11/20 25 [facility] Therapy Treatment Form completed [facility] [place] - [facility] 08/11/2025 12:58:18 08/10/20 25 [facility] Therapy Treatment Form completed Carolyn luan [place] - [facility] 08/10/2025 12:57:23 08/04/20 [...] [facility] Therapy Treatment Form completed [facility] [place] - [facility] 07/23/2025 12:41:49 07/22/20 [facility] Therapy Treatment Form completed [facility] - [facility] 07/22/2025 12:53:32 07/21/20 [facility] Therapy Treatment Form completed [facility] [place] - [facility] 07/21/2025 12:43:55 07/20/20 [facility] Therapy Treatment Form completed [facility] [place] - [facility] 07/20/2025 [...] Care Therapy Treatment Form completed Carolyn luan [place] - [facility] 07/09/2025 12:46:05 07/08/20 25 [facility] Therapy Treatment Form completed [facility] - [facility] 07/08/2025 12:41:28 07/07/20 25 [facility] Therapy Treatment Form completed Manfred Shelton [place] - [facility] 07/08/2025 08:10:21 07/06/20 25 [facility] Therapy Treatment Form completed [facility] - [facility] 07/06/2025 13:06:29 07/03/20 25 [facility] Therapy Treatment Form completed Paula Licea [place] - [facility] 07/03/2025 12:47:29 07/02/20 25 [facility] Therapy Treatment Form completed Paula Licea [place] - [facility] 07/02/2025 13:06:39 07/01/20 25 [facility] Therapy Treatment Form completed Paula Licea [place] - [facility] 07/01/2025 13:05:37 06/30/20 25 [facility] Therapy Treatment Form completed COLEMAN LAU NP [place] - [facility] 06/30/2025 13:46:12 06/29/20 25 [facility] Therapy Treatment Form completed [facility] [place] - [facility] 06/29/2025 13:24:58 06/26/20 25 [facility] Therapy Treatment Form completed Manfred Shelton [place] - [facility] 06/26/2025 16:57:55 06/25/20 25 [facility] Therapy Treatment Form completed [facility] - [facility] 06/25/2025 12:47:07 06/24/20 25 [facility] Therapy Treatment Form completed [facility] - [facility] 06/24/2025 12:40:20 06/23/20 25 [facility] Therapy Treatment Form completed Carolyn luan [place] - [facility] 06/23/2025 12:39:50 06/22/20 25 [facility] Therapy Treatment Form completed [facility] - [facility] 06/22/2025 12:49:55 06/19/20 25 [facility] Therapy Treatment Form completed Manfred Shelton [place] - [facility] 06/19/2025 14:13:24 06/18/20 25 [facility] Therapy Treatment Form completed COLEMAN LAU NP [place] - [facility] 06/18/2025 13:17:34 06/17/20 25 [facility] Therapy Treatment Form completed [facility] [place] - [facility] 06/17/2025 12:29:15 06/16/20 25 [facility] Therapy Treatment Form completed [facility] [place] - [facility] 06/16/2025 12:45:53 06/15/20 25 [facility] Therapy Treatment Form completed [facility] [place] - [facility] 06/15/2025 12:47:07 06/12/20 25 [facility] Therapy Treatment Form completed Manfred Shelton MD [place] - [facility] 06/12/2025 14:54:52 06/11/20 25 [facility] Therapy Treatment Form completed [facility] - [facility] 06/11/2025 13:02:39 06/10/20 25 [facility] Therapy Treatment Form completed [facility] [place] - [facility] 06/10/2025 12:50:18 06/08/20 25 [facility] Therapy Treatment Form completed [facility] [place] - [facility] 06/08/2025 12:56:07 06/05/20 25 [facility] Therapy Treatment Form completed Evelia Winters [place] - [facility] 06/05/2025 14:28:16 06/04/20 25 Wound completed COLEMAN LAU NP [place] - [facility] 06/04/2025 14:24:29 06/04/20 25 [facility] Therapy Treatment Form completed COLEMAN LAU NP [place] - [facility] 06/04/2025 13:56:49 06/03/20 25 [facility] Therapy Treatment Form completed Evelia Winters [place] - [facility] 06/03/2025 14:11:11 06/02/20 25 [facility] Therapy Treatment Form completed [facility] - [facility] 06/02/2025 13:09:37 05/29/20 25 [facility] Therapy Treatment Form completed [facility] - [facility] 05/29/2025 12:25:31 05/28/20 25 [facility] Therapy Treatment Form completed [facility] [place] - [facility] 05/28/2025 13:02:44 05/27/20 [...] Not available Not available Not available 04/23/2025 34043 3 RxNorm Luciana Noriega null, [place] - [facility] 5 14:25:27 1104 Avelox medicatio n Not available Not available Not available 04/23/2025 07571 6 RxNorm Luciana Noriega null, [place] - [facility] 5 14:25:52 1105 metformin medicatio n other Not available low 04/23/20252023 6809 RxNorm GI issue s Luciana Noriega null, [place] - [facility] 14:26:11 1253 Product containin g angiotens in-conver ting enzyme inhibitor (product) medicatio n cough moderate Not available 06/26/2025 28811 009 SNOMED Not Available taisha - External Data Service - prod 5 10:54:20 1254 metformin hydrochlo ride medicatio n Not available Not available Not available 06/26/2025 46761 3 RxNorm Not Available taisha - External [...] medicatio n rash moderate Not available 07/15/2025 03657 2 RxNorm Not Available taisha - External Data Service - prod 5 10:18:57 1461 moxifloxa beck hydrochlo ride medicatio n Not available Not available Not available 08/24/20252015 00132 0 RxNorm Not Available taisha - External [...] Updated DateTime 5 91 /min 16 /min 98.2 [degF] 92 % 79 /min 16 /min 97.9 [degF] 96 % 141/70 mm[Hg] 112/72 mm[Hg] [facility] [place] - [facility] 5 12:41:47 Social History None recorded. Functional Status None [...] Office [address] [place] [address] 06/08/2025 10:25:37 06/08/2025 14:39:12 [id number] Manfred Shelton MD Main Office [address] [place] [address] 06/10/2025 10:19:13 06/10/2025 13:21:20 [id number] Manfred Shelton MD Main Office [address] [place] [address] 06/11/2025 10:35:04 06/11/2025 14:11:07 [id number] Manfred Shelton MD Main Office [address] [place] [address] 06/12/2025 10:59:45 06/12/2025 14:56:49 [id number] Manfred Shelton MD Main Office [address] [place] [address] 06/15/2025 10:50:33 06/15/2025 13:14:21 [id number] Manfred Shelton MD Main Office [address] [place] [address] 06/16/2025 10:14:56 06/16/2025 13:52:36 [id number] Manfred Shelton MD Main Office [address] [place] [address] 06/17/2025 10:28:52 06/17/2025 13:18:56 [id number] Manfred Shelton MD Main Office [address] [place] [address] 06/18/2025 10:16:09 06/18/2025 13:16:04 [id number] Manfred Shelton MD Main Office [address] [place] [address] 06/19/2025 10:44:19 06/19/2025 14:15:39 [id number] COLEMAN LAU NP Main Office [address] [place] [address] 06/22/2025 10:36:06 06/22/2025 14:32:28 [id number] Manfred Shelton MD Main Office [address] [place] [address] 06/23/2025 10:18:15 06/23/2025 14:03:00 [id number] Manfred Shelton MD Main Office [address] [place] [address] 06/24/2025 10:23:16 06/24/2025 13:37:08 [id number] Manfred Shelton MD Main Office [address] [place] [address] 06/25/2025 10:19:36 06/25/2025 14:27:35 [id number] Manfred Shelton MD Main Office [address] [place] [address] 06/26/2025 10:52:38 06/26/2025 16:27:47 [id number] Manfred Shelton MD Main Office [address] [place] [address] 06/29/2025 10:44:14 06/29/2025 13:39:12 [id number] Manfred Shelton MD Main Office [address] [place] [address] 06/30/2025 10:42:21 06/30/2025 13:46:39 [id number] Manfred Shelton MD Main Office [address] [place] [address] 07/01/2025 10:49:18 07/01/2025 13:25:24 [id number] Manfred Shelton MD Main Office [address] [place] [address] 07/02/2025 10:15:06 07/03/2025 07:21:23 [id number] Manfred Shelton MD Main Office [address] [place] [address] 07/03/2025 10:50:33 07/03/2025 17:53:35 [id number] Manfred Shelton MD Main Office [address] [place] [address] 07/06/2025 10:54:52 07/06/2025 14:37:01 [id number] Manfred Shelton MD Main Office [address] [place] [address] 07/07/2025 10:14:11 07/08/2025 08:12:24 [id number] Manfred Shelton MD Main Office [address] [address] [place] [address] 07/08/2025 10:22:23 07/08/2025 19:57:51 Health Concerns Section Related Observation LastModified by Organization Detai ls LastModified Time None Recorded Concern Status LastModified by Organization Details LastModified Time None Recorded Payers Encounter Date Sequence Insurance Name Policy Number Policy Gonzales Covered Member ID Gonzales Member ID Guarantor Name 07/08/2025 2 [employer] Seema Delacruz [id number] Seema Delacruz 07/08/2025 1 [employer] Seema Delacruz [id number] Seema Delacruz OBGyn Episode No OBEpisode recorded.
--- OUTSIDE RECORDS SUMMARY | 2025-09-16 16:31 | XMS_ITS | Continuity of Care Document ---
Author Organization [place] - [facility], Main Office Address [address] [place] [address] Care Team Providers Care Oracle Iam Consultant Name Role Phone STEPHY YUSUF Primary [...] Modified By Organization Details Last Modified Time 07/29/2025 9540 BACKGROUND: Seema Delacruz is a 55 y.o. [...] Diagnosis: L97.512, E11.621 Session Notes: Today's Date 29Jul2025 HBOT session 60 of 80 Next HBOT [id number] 30Jul - Patient cleared for 1st HBOT [...] antibiotics for an upper respiratory infection. Nicolasa PHY THERAPIST 07Aug- Patient cleared for HBOT today. VS stable. PAtient had little trouble reaching pressure today, but had to come out of chamber early due to needing to use restroom. She managed to do 4 segs-118 minutes. Israel.Tanner PHY THERAPIST 08Aug - Patient cleared for HBOT today. VS stable. Patient completed full session with no problem. Antoinette Lau PHY THERAPIST 11Aug - Patient cleared for HBOT today. [...] full session with no problem. Antoinette Lau PHY THERAPIST 13Aug - Patient cleared for HBOT today. VS stable. Patient completed full session with no problem. Wound care to follow treatment today. Antoinette Lau APRN 14Aug - Patient cleared for HBOT today. VS stable. Patient completed full session with no problem. Antoinette Lau PHY THERAPIST 15Aug - Patient cleared for HBOT today. [...] attempt to try again on Sunday. Nicolasa PHY THERAPIST 18Aug - Patient cleared for HBOT today. VS stable. Patient completed full session with no problem. Antoinette Lau PHY THERAPIST 19Aug - Patient deemed safe for HBOT [...] significant anxiety. Dressing change today per nursing. [facility] [place] - Patient deemed safe for HBOT today. VS stable. Patient completed full session with no problem. Antoinette aLu APRN 26Aug - Patient cleared for HBOT [...] of problem. [facility] [place] 29Aug - Cleared for HBOT his date and completed full session free of problem. Of note, this patient continues to smoke tobacco cigarettes. [facility] [place] 02Sep - Patient deemed [...] above 80 and was discharged with 92. [facility] [place] 08[place] - Patient deemed safe for HBOT today. VS stable. Patient completed full session with no problem. [place].Jessica Lau APRN 10Sep - Patient deemed safe for HBOT today. VS stable. Patient completed full session with no problem. Antoinette Lau APRN 11Sep - Patient cleared for HBOT today. VS stable. Patient completed full session with no problem. [place].Jessica Lau PHY THERAPIST 12Sep - Found safe for HBOT this date. Completed curtailed session free of problem. Session shortened to satisfy demand of ride provider. [facility] [place] - Patient cleared [...] full session with no problem. IsraelIlsa Lau PHY THERAPIST 26Sep - Deemed safe for HBOT on this date and completed the full session uneventfully. [facility] [place] 29Sep - Patient cleared for HBOT today. VS stable. Patient completed 3 Seg session with no problem. M.ADeepali Lau PHY THERAPIST 30Sep - Patient cleared for HBOT today. VS stable. Patient completed full session with no problem. M.Jessica Lau PHY THERAPIST 01Oct - Patient cleared for HBOT today. VS stable. Patient completed full session with no problem. M.Jessica Lau PHY THERAPIST 02Oct - Cleared for HBOT this date and completed full session free of problem. [facility] [place] 03Oct - Deemed safe for HBOT today and completed her full session without problem. [facility] [place] 06Oct - Found safe for HBOT this date and tolerated her session free of problem. [facility] [place] 07Oct- Cleared for HBOT this date and completed the full session without problem. [facility] [place] 08Oct - Glu on arrival marginal so given caloric intake first and then cleared for HBOT this day. Had no problem completing full session emerging at Glu 139. [facility] [place] 09Oct - Deemed safe for HBOT today and completed full session without problem. [facility] [place] 14Oct - Patient returns after being out ill. Cleared for HBOT today. VS stable. Patient completed full session with no problem. [place].Jessica Lau PHY THERAPIST 15Oct - Patient cleared for HBOT today. VS stable. Patient completed full session with no problem. M.Jessica Lau PHY THERAPIST 16Oct - Patient cleared for HBOT today. VS stable. Patient completed full session with no problem. M.Jessica Lau PHY THERAPIST 17Oct - Patient cleared for HBOT today. VS stable. Patient completed full session with no problem. [place].Jessica Lau PHY THERAPIST 20Oct - Patient an hour late today due to transportation company. She can only do an hour, or she will not have a ride back home. Cleared for HBOT, VS stable. Finished 1 hour session with no issues or complaints. M.Tanner PHY THERAPIST 21Oct - Patient cleared for HBOT today. VS stable. Patient completed full session with no problem. M.ADeepali Lau PHY THERAPIST 22Oct - Patient cleared for HBOT today. VS stable. Patient completed full session with no problem. M.ADeepali Lau APRN 23Oct - Patient cleared for HBOT today. VS stable. Patient completed full session with no problem. CompaDeepali Lau APRN 24Oct - Deemed safe for HBOT this date and did complete full session without problem. [facility] [place] 27Oct - Patient cleared [...] completed full session with no other problem. IsraelIlsa Lau APRN 28Oct - Patient cleared for [...] I called in Augmentin to her pharmacy. IsraelDeepaliMonicaDeepali Lau APRN 29Oct - Patient deemed safe for HBOT today. VS stable. Patient completed full session with no issues or problem. IsraelDeepaliMonicaDeepali Lau APRN Not available 07/29/2025 13:37:52 Reason for Referral None Reported. Results Created [...] Organization Details Recorded Time Upper respiratory infection [id number] Active 2024 COLEMAN LAU PSYCHOLOGY FELLOW null, [place] - [facility] 12:18:40 Episodic migraine 2493527127911 Active 2024 COLEMAN LAU PSYCHOLOGY FELLOW [place], [place] - [facility] 12:34:01 Type 2 diabetes mellitus [id number] Active 2024 COLEMAN LAU PSYCHOLOGY FELLOW null, [place] [facility] 15:27:12 Refractory migraine with aura [id number] Active 2024 COLEMAN LAU PSYCHOLOGY FELLOW null, [place] [facility] 10:56:52 Recurrent acute frontal sinusitis Active 2024 COLEMAN LAU NP null, [place] - [facility] 12:47:05 Candidiasis of vagina 66892740 Active 2024 COLEMAN LAU NP null, [place] - [facility] 12:47:26 Acute upper respiratory infection 61731302 Active 2024 COLEMAN LAU NP null, [place] - [facility] 12:32:57 Problem Notes None recorded. Procedures Surgical History Date Name Laterality Status Provider Name and Address Organization Details Recorded Time 09/15/20 [facility] Therapy Treatment Form completed [facility] - [facility] 09/15/2025 12:48:40 09/14/20 [facility] Therapy Treatment Form completed COLEMAN LAU NP [place] - [facility] 09/14/2025 14:54:43 09/07/20 25 [facility] Therapy Treatment Form completed [facility] - [facility] 09/07/2025 12:38:58 08/31/20 25 [facility] Therapy Treatment Form completed [facility] - [facility] 08/31/2025 12:48:46 08/25/20 25 [facility] Therapy Treatment Form completed [facility] - [facility] 08/25/2025 12:52:26 08/24/20 25 [facility] Therapy Treatment Form completed [facility] - [facility] 08/24/2025 12:53:43 08/17/20 25 [facility] Therapy Treatment Form completed [facility] - [facility] 08/17/2025 13:02:48 08/14/20 25 [facility] Therapy Treatment Form completed Lisa Sosa [place] - [facility] 08/14/2025 12:43:08 08/13/20 25 [facility] Therapy Treatment Form completed Carolyn roland [place] - [facility] 08/13/2025 12:27:58 08/12/20 25 [facility] Therapy Treatment Form completed Carolyn luan [place] - [facility] 08/12/2025 12:36:02 08/12/20 25 Wound completed COLEMAN LAU NP [place] - [facility] 08/12/2025 14:15:15 08/11/20 25 [facility] Therapy Treatment Form completed Carolyn roland [place] - [facility] 08/11/2025 12:58:18 08/10/20 25 [facility] Therapy Treatment Form completed Carolyn roland [place] - [facility] 08/10/2025 12:57:23 08/04/20 25 [facility] Therapy Treatment Form completed ABDOULAYE HAQ - [facility] 08/04/2025 13:51:50 08/03/20 25 [facility] Therapy Treatment Form completed COLEMAN LAU NP [place] - [facility] 08/03/2025 14:17:35 07/30/20 25 [facility] Therapy Treatment Form completed Carolyn roland [place] - [facility] 07/30/2025 12:38:27 07/29/20 25 [facility] Therapy Treatment Form completed Carolyn roland [place] - [facility] 07/29/2025 12:40:06 07/28/20 [...] Carolyn roland [place] - [facility] 07/23/2025 12:41:49 07/22/20 25 [facility] Therapy Treatment Form completed Carolyn luan [place] - [facility] 07/22/2025 12:53:32 07/21/20 25 [facility] Therapy Treatment Form completed Carolyn roland [place] - [facility] 07/21/2025 12:43:55 07/20/20 25 [facility] Therapy Treatment Form completed Carolyn roland [place] - [facility] 07/20/2025 12:58:21 07/17/20 25 [facility] Therapy Treatment Form completed Lisa Sosa [place] - [facility] 07/17/2025 12:35:46 07/16/20 25 [facility] Therapy Treatment Form completed Frank Chungjeffrey [place] - [facility] 07/16/2025 16:54:47 07/15/20 25 Wound completed COLEMAN LAU NP [place] [facility] 07/15/2025 14:47:28 07/15/20 25 [facility] Therapy Treatment Form completed Carolyn roland [place] - [facility] 07/15/2025 12:39:29 07/14/20 25 [facility] Therapy Treatment Form completed COLEMAN LAU NP [place] - [facility] 07/14/2025 15:14:39 07/09/20 25 [facility] Therapy Treatment Form completed Carolyn roland [place] - [facility] 07/09/2025 12:46:05 07/08/20 25 [facility] Therapy Treatment Form completed Carolyn roland [place] - [facility] 07/08/2025 12:41:28 07/07/20 [...] Care Therapy Treatment Form completed [facility] - [facility] 06/25/2025 12:47:07 06/24/20 25 [facility] Therapy Treatment Form completed [facility] 06/24/2025 12:40:20 06/23/20 25 [facility] Therapy Treatment Form completed [facility] - [facility] 06/23/2025 12:39:50 06/22/20 25 [facility] Therapy Treatment Form completed [facility] - [facility] 06/22/2025 12:49:55 06/19/20 25 [facility] Therapy Treatment Form completed Manfred Shelton MD [place] - [facility] 06/19/2025 14:13:24 06/18/20 25 [facility] Therapy Treatment Form completed COLEMAN LAU NP [place] - [facility] 06/18/2025 13:17:34 06/17/20 25 [facility] Therapy Treatment Form completed [facility] - [facility] 06/17/2025 12:29:15 06/16/20 25 [facility] Therapy Treatment Form completed [facility] 06/16/2025 12:45:53 06/15/20 25 [facility] Therapy Treatment Form completed [facility] - [facility] 06/15/2025 12:47:07 06/12/20 25 [facility] Therapy Treatment Form completed Manfred Shelton MD [facility] 06/12/2025 14:54:52 06/11/20 25 [facility] Therapy Treatment Form completed [facility] - [facility] 06/11/2025 13:02:39 06/10/20 25 [facility] Therapy Treatment Form completed [facility] - [facility] 06/10/2025 12:50:18 06/08/20 25 [facility] Therapy Treatment Form completed [facility] - [facility] 06/08/2025 12:56:07 06/05/20 25 [facility] Therapy Treatment Form completed Evelia Winters [place] - [facility] 06/05/2025 14:28:16 06/04/20 25 Wound completed COLEMAN JASBIR, PSYCHOLOGY FELLOW [place] - [facility] 06/04/2025 14:24:29 [...] Not available Not available Not available 04/23/2025 13660 3 RxNorm Luciana servin, [place] - [facility] 14:25:27 1104 Avelox medicatio n Not available Not available Not available 04/23/2025 55408 6 RxNorm [place] - [facility] 14:25:52 1105 metformin medicatio n other Not available low 04/23/20252023 6809 RxNorm GI issue s Luciana servin, [place] - [facility] 14:26:11 1253 Product containin g angiotens in-conver ting enzyme inhibitor (product) medicatio n cough moderate Not available 06/26/2025 34409 009 SNOMED Not Available taisha - [employer] - prod 10:54:20 1254 metformin hydrochlo ride medicatio n Not available Not available Not available 06/26/2025 10668 3 RxNorm Not Available [employer] - prod 5 10:54:20 1358 ceftriaxo ne medicatio n rash moderate Not available 07/15/2025 2193 RxNorm Not Available [employer] - prod 5 10:18:57 1359 droperido l medicatio n dyspnea Not available Not available 07/15/2025 3648 RxNorm Not Available [employer] - prod 5 10:18:57 1360 moxifloxa beck medicatio n rash moderate Not available 07/15/2025 45711 2 RxNorm Not Available [employer] - [employer] 5 10:18:57 1461 moxifloxa beck hydrochlo ride medicatio n Not available Not available Not available 08/24/20252015 29428 0 RxNorm Not Available taisha [employer] - [employer] 5 04:35:37 Medications Name Sig Start Date [...] Available Not Available Not Available amoxicillin 875 mg-potadwoaiu m clavulanate 125 mg tablet Take 1 [...] Updated DateTime 5 72 /min 16 /min 98.4 [degF] 92 % 64 /min 16 /min 97.2 [degF] 98 % 152/78 mm[Hg] 118/66 mm[Hg] [facility] 12:39:48 Social History None recorded. Functional Status None [...] MD Main Office [address] [place] [address] 06/29/2025 10:44:14 06/29/2025 13:39:12 [id number] Manfred Shelton MD Main Office [address] [place] [address] 06/30/2025 10:42:21 06/30/2025 13:46:39 [id number] Manfred Shelton MD Main Office [address] [place] [address] 07/01/2025 10:49:18 07/01/2025 13:25:24 [id number] Manfred Shelton MD Main Office [address] [place] [address] 07/02/2025 10:15:06 07/03/2025 07:21:23 [id number] Manfred Shelton MD Main Office [address] [place] [address] 07/03/2025 10:50:33 07/03/2025 17:53:35 [id number] Manfred Shelton MD Main Office [address] [place] [address] 07/06/2025 10:54:52 07/06/2025 14:37:01 [id number] Manfred Shelton MD Main Office [address] [place] [address] 07/07/2025 10:14:11 07/08/2025 08:12:24 [id number] Manfred Shelton MD Main Office [address] [place] [address] 07/08/2025 10:22:23 07/08/2025 19:57:51 [id number] Manfred Shelton MD Main Office [address] [place] [address] 07/09/2025 10:23:51 07/09/2025 16:04:46 [id number] Manfred Shelton MD Main Office [address] [place] [address] 07/14/2025 10:06:05 07/14/2025 15:15:47 [id number] Manfred Shelton MD Main Office [address] [place] [address] 07/15/2025 10:17:40 07/15/2025 13:26:46 [id number] Manfred Shelton MD Main Office [address] [place] [address] 07/15/2025 14:45:53 07/15/2025 14:48:12 [id number] Manfred Shelton MD Main Office [address] [place] [address] 07/16/2025 10:18:19 07/16/2025 14:20:47 [id number] Manfred Shelton MD Main Office [address] [place] [address] 07/17/2025 10:06:47 07/17/2025 14:10:36 Refractory migraine with aura [id number] G43.972 [id number] Manfred Shelton MD Main Office [address] [place] [address] 07/20/2025 11:09:11 07/20/2025 14:45:37 [id number] Manfred Shelton MD Main Office [address] [place] [address] 07/21/2025 10:11:12 07/21/2025 12:49:36 [id number] Manfred Shelton MD Main Office [address] [place] [address] 07/22/2025 10:10:07 07/22/2025 13:11:46 [id number] Manfred Shelton MD Main Office [address] [place] , [place] [address] 07/23/2025 10:48:45 07/23/2025 15:03:21 [id number] Manfred Shelton MD Main Office [address] [place] [address] 07/24/2025 10:18:12 07/24/2025 17:58:24 [id number] Manfred Shelton MD Main Office [address] [place] [address] 07/27/2025 10:15:44 07/27/2025 14:05:56 [id number] Manfred Shelton MD Main Office [address] [place] [address] 07/28/2025 10:36:12 07/28/2025 13:58:27 [id number] Manfred Shelton MD Main Office [address] [place] [address] 07/29/2025 10:14:56 07/29/2025 13:38:02 Health Concerns Section Related Observation LastModified by Organization Detai ls LastModified Time None Recorded Concern Status LastModified by Organization Details LastModified Time None Recorded Payers Encounter Date Sequence Insurance Name Policy Number Policy Gonzales Covered Member ID Gonzales Member ID Guarantor Name 07/29/2025 2 [employer] Seema Delacruz [id number] Seema Delacruz 07/29/2025 1 [employer] Seema Delacruz [id number] Seema Delacruz OBGyn Episode No OBEpisode recorded.
--- OUTSIDE RECORDS SUMMARY | 2025-09-16 16:31 | XMS_ITS | Continuity of Care Document ---
Author Organization [place] - [facility], Main Office Address [address] [place] [address] Care Team Providers Care Ui Designer Name Role Phone STEPHY YUSUF Primary [...] Modified By Organization Details Last Modified Time 08/24/2025 [id number] BACKGROUND: Seema Delacruz is a 55 y.o. [...] Diagnosis: L97.512, E11.621 Session Notes: Today's Date 24Aug2025 HBOT session 70 of 80 Next HBOT 25Aug2025 30Jul - Patient cleared for 1st HBOT [...] for an upper respiratory infection. Nicolasa MANAGER COMMUNITY 07Aug- Patient cleared for HBOT today. VS stable. PAtient had little trouble reaching pressure today, but had to come out of chamber early due to needing to use restroom. She managed to do 4 segs-118 minutes. [place].Tanner MANAGER COMMUNITY 08Aug - Patient cleared for HBOT today. VS stable. Patient completed full session with no problem. Antoinette Lau MANAGER COMMUNITY 11Aug - Patient cleared for HBOT today. [...] session with no problem. Antoinette Lau MANAGER COMMUNITY 13Aug - Patient cleared for HBOT today. VS stable. Patient completed full session with no problem. Wound care to follow treatment today. Antoinette Lau APRN 14Aug - Patient cleared for HBOT today. VS stable. Patient completed full session with no problem. Antoinette Lau MANAGER COMMUNITY 15Aug - Patient cleared for HBOT today. [...] to try again on Sunday. Nicolasa MANAGER COMMUNITY 18Aug - Patient cleared for HBOT today. VS stable. Patient completed full session with no problem. Antoinette Lau MANAGER COMMUNITY 19Aug - Patient deemed safe for HBOT [...] significant anxiety. Dressing change today per nursing. [facility] 25Aug - Patient deemed safe for HBOT [...] date andcompleted full session free of problem. [facility] 29Aug - Cleared for HBOT his date and completed full session free of problem. Of note, this patient continues to smoke tobacco cigarettes. [facility] 02Sep - Patient deemed safe for HBOT [...] above 80 and was discharged with 92. [facility] 08Sep - Patient deemed safe for HBOT today. VS stable. Patient completed full session with no problem. [place].Jessica Lau APRN 10Sep - Patient deemed safe for HBOT today. VS stable. Patient completed full session with no problem. Antoinette Lau APRN 11Sep - Patient cleared for HBOT today. VS stable. Patient completed full session with no problem. [place].Jessica Lau MANAGER COMMUNITY 12Sep - Found safe for HBOT this date. Completed curtailed session free of problem. Session shortened to satisfy demand of ride provider. [facility] 15Sep - Patient cleared for HBOT today. [...] full session with no problem. IsraelIlsa Lau MANAGER COMMUNITY 26Sep - Deemed safe for HBOT on this date and completed the full session uneventfully. [facility] 29Sep - Patient cleared for HBOT today. VS stable. Patient completed 3 Seg session with no problem. M.ADeepali Lau MANAGER COMMUNITY 30Sep - Patient cleared for HBOT today. VS stable. Patient completed full session with no problem. M.Jessica Lau MANAGER COMMUNITY 01Oct - Patient cleared for HBOT today. VS stable. Patient completed full session with no problem. M.Jessica Lau MANAGER COMMUNITY 02Oct - Cleared for HBOT this date and completed full session free of problem. [facility] 03Oct - Deemed safe for HBOT today and completed her full session without problem. [facility] 06Oct - Found safe for HBOT this date and tolerated her session free of problem. [facility] 07Oct- Cleared for HBOT this date and completed the full session without problem. [facility] 08Oct - Glu on arrival marginal so given caloric intake first and then cleared for HBOT this day. Had no problem completing full session emerging at Glu 139. [facility] 09Oct - Deemed safe for HBOT today and completed full session without problem. [facility] 14Oct - Patient returns after being out ill. Cleared for HBOT today. VS stable. Patient completed full session with no problem. [place].Jessica Lau MANAGER COMMUNITY 15Oct - Patient cleared for HBOT today. VS stable. Patient completed full session with no problem. M.Jessica Lau MANAGER COMMUNITY 16Oct - Patient cleared for HBOT today. VS stable. Patient completed full session with no problem. M.Jessica Lau MANAGER COMMUNITY 17Oct - Patient cleared for HBOT today. VS stable. Patient completed full session with no problem. [place].Jessica Lau MANAGER COMMUNITY 20Oct - Patient an hour late today due to transportation company. She can only do an hour, or she will not have a ride back home. Cleared for HBOT, VS stable. Finished 1 hour session with no issues or complaints. M.Tanner MANAGER COMMUNITY 21Oct - Patient cleared for HBOT today. VS stable. Patient completed full session with no problem. M.ADeepali Lau MANAGER COMMUNITY 22Oct - Patient cleared for HBOT today. VS stable. Patient completed full session with no problem. M.Jessica Lau MANAGER COMMUNITY 23Oct - Patient cleared for HBOT today. VS stable. Patient completed full session with no problem. Antoinette Lau APRN 24Oct - Deemed safe for HBOT this date and did complete full session without problem. [facility] 27Oct - Patient cleared for HBOT today. [...] and completed full session free of problem. [facility] 31Oct - See E&M visit note 03Nov [...] reach 2.0 SANTY today with no issues. Antoientte Sotowood MANAGER COMMUNITY 05-07Nov - patient out ill - [facility] 10Nov - Patient deemed safe for HBOT today. VS stable. Patient completed full session with no issues or problem. [place].Monica. Judi MANAGER COMMUNITY 11Nov - Patient cleared for HBOT today. VS stable. Patient completed full session with no problem. [place].Monica. Ferron MANAGER COMMUNITY 12Nov - Patient deemed safe for HBOT today. VS stable. Patient able to complete full session with no issues or problems. Wound care done after treatment today. [place].Monica. Judi MANAGER COMMUNITY 13Nov - Patient cleared for HBOT today. VS stable. Patient able to complete full session with no issues or problems. Israel.Monica. Judi MANAGER COMMUNITY 14Nov - Deemed safe for HBOT today and completed full session uneventfully. Additional care: [id number] for DX L97.512 and Ell.621 - Following [...] nor deeper tissue infection. Patient states her completions engineer, Dr Ortiz, has already ordered MRI but [...] session with no issues or problems. [place].MonicaDeepali Lau MANAGER COMMUNITY 18-21Nov - patient out ill - [facility] 24Nov - Patient deemed safe for HBOT today. VS stable. Patient able to complete full session with no problems or issues. Antoinette Lau MANAGER COMMUNITY Not available 08/24/2025 13:10:36 Reason for Referral None Reported. Problems Name Problem SNOMED Code Status Onset Date Resolution Date Notes Provider Name and Address Organization Details Recorded Time Upper respiratory infection 30676805 Active 2024 COLEMAN LAU HEEL BUFFER null, [place] - [facility] 12:18:40 Episodic migraine 0064706572675 06 Active 2024 COLEMAN LAU HEEL BUFFER null, [place] - [facility] 12:34:01 Type 2 diabetes mellitus 55952125 Active 2024 COLEMAN LAU NP null, [place] [facility] 15:27:12 Refractory migraine with aura 086195390 Active 2024 COLEMAN LAU HEEL BUFFER null, [place] [facility] 10:56:52 Recurrent acute frontal sinusitis Active 2024 COLEMAN LAU NP null, [place] [facility] 12:47:05 Candidiasis of vagina 16882284 Active 2024 COLEMAN LAU HEEL BUFFER null, [place] - [facility] 12:47:26 Acute upper respiratory infection 21248546 Active 2024 COLEMAN LAU NP null, [place] [...] Care Therapy Treatment Form completed [facility] - [facility] 09/07/2025 12:38:58 08/31/20 25 [facility] Therapy Treatment Form completed [facility] - [facility] 08/31/2025 12:48:46 08/25/20 25 [facility] Therapy Treatment Form completed [facility] - [facility] 08/25/2025 12:52:26 08/24/20 25 [facility] Therapy Treatment Form completed Craolyn roland [place] - [facility] 08/24/2025 12:53:43 08/17/20 25 [facility] Therapy Treatment Form completed Carolyn roland [place] - [facility] 08/17/2025 13:02:48 08/14/20 25 [facility] Therapy Treatment Form completed Lisa Sosa [place] - [facility] 08/14/2025 12:43:08 08/13/20 25 [facility] Therapy Treatment Form completed Carolyn roland [place] - [facility] 08/13/2025 12:27:58 08/12/20 25 [facility] Therapy Treatment Form completed Carolyn roland [place] - [facility] 08/12/2025 12:36:02 08/12/20 25 Wound completed OCLEMAN LAU NP [place] - [facility] 08/12/2025 14:15:15 08/11/20 25 [facility] Therapy Treatment Form completed Carolyn roland [place] - [facility] 08/11/2025 12:58:18 08/10/20 25 [facility] Therapy Treatment Form completed Carolyn roland [place] - [facility] 08/10/2025 12:57:23 08/04/20 25 [facility] Therapy Treatment Form completed ABDOULAYE HAQ - [facility] 08/04/2025 13:51:50 08/03/20 25 [facility] Therapy Treatment Form completed ABDOULAYE [facility] - [facility] 08/03/2025 14:17:35 07/30/20 25 [facility] Therapy Treatment Form completed Carolyn roland [place] - [facility] 07/30/2025 12:38:27 07/29/20 25 [facility] Therapy Treatment Form completed Carolyn roland [place] - [facility] 07/29/2025 12:40:06 07/28/20 [...] Care Therapy Treatment Form completed Carolyn roland [place] - [facility] 07/23/2025 12:41:49 07/22/20 25 [facility] Therapy Treatment Form completed Carolyn roland [place] - [facility] 07/22/2025 12:53:32 07/21/20 25 [facility] Therapy Treatment Form completed Carolyn roland [place] - [facility] 07/21/2025 12:43:55 07/20/20 25 [facility] Therapy Treatment Form completed Carolyn roland [place] - [facility] 07/20/2025 12:58:21 07/17/20 25 [facility] Therapy Treatment Form completed iLsa Sosa [place] - [facility] 07/17/2025 12:35:46 07/16/20 25 [facility] Therapy Treatment Form completed Frank Gage [place] [facility] 07/16/2025 16:54:47 07/15/20 25 Wound completed COLEMAN LAU NP [place] [facility] 07/15/2025 14:47:28 07/15/20 25 [facility] Therapy Treatment Form completed Carolyn roland [place] - [facility] 07/15/2025 12:39:29 07/14/20 25 [facility] Therapy Treatment Form completed COLEMAN LAU NP [place] [facility] 07/14/2025 15:14:39 07/09/20 25 [facility] Therapy Treatment Form completed Carolyn roland [place] - [facility] 07/09/2025 12:46:05 07/08/20 25 [facility] Therapy Treatment Form completed Carolyn roland [place] - [facility] 07/08/2025 12:41:28 07/07/20 25 [facility] Therapy Treatment Form completed Manfred Shelton MD [place] - [facility] 07/08/2025 08:10:21 07/06/20 25 [facility] Therapy Treatment Form completed Carolyn roland [place] - [facility] 07/06/2025 13:06:29 07/03/20 [...] Therapy Treatment Form completed COLEMAN LAU NP [place] - [facility] 06/30/2025 13:46:12 06/29/20 25 [facility] Therapy Treatment Form completed [facility] 06/29/2025 13:24:58 06/26/20 25 [facility] Therapy Treatment Form completed Manfred Shelton MD [facility] 06/26/2025 16:57:55 06/25/20 25 [facility] Therapy Treatment Form completed [facility] 06/25/2025 12:47:07 06/24/20 25 [facility] Therapy Treatment Form completed [facility] 06/24/2025 12:40:20 06/23/20 25 [facility] Therapy Treatment Form completed [facility] 06/23/2025 12:39:50 06/22/20 25 [facility] Therapy Treatment Form completed [facility] 06/22/2025 12:49:55 06/19/20 25 [facility] Therapy Treatment Form completed Manfred Shelton [place] - [facility] 06/19/2025 14:13:24 06/18/20 25 [facility] Therapy Treatment Form completed COLEMAN LAU NP [place] - [facility] 06/18/2025 13:17:34 06/17/20 25 [facility] Therapy Treatment Form completed [facility] 06/17/2025 12:29:15 06/16/20 25 [facility] Therapy Treatment Form completed [facility] 06/16/2025 12:45:53 06/15/20 25 [facility] Therapy Treatment Form completed [facility] 06/15/2025 12:47:07 06/12/20 25 [facility] Therapy Treatment Form completed Manfred Shelton MD [facility] 06/12/2025 14:54:52 06/11/20 25 [facility] Therapy Treatment Form completed [facility] 06/11/2025 13:02:39 06/10/20 25 [facility] Therapy Treatment Form completed [facility] 06/10/2025 12:50:18 06/08/20 25 [facility] Therapy Treatment Form completed [facility] - [facility] 06/08/2025 12:56:07 06/05/20 25 [facility] Therapy Treatment Form completed Evelia Singh [facility] - [facility] 06/05/2025 14:28:16 06/04/20 25 Wound completed COLEMAN LAU NP [place] - [facility] 06/04/2025 14:24:29 06/04/20 25 [facility] Therapy Treatment Form completed COLEMAN ALU NP [place] [facility] 06/04/2025 13:56:49 06/03/20 25 [facility] Therapy Treatment Form completed Evelia Winters [facility] - [facility] 06/03/2025 14:11:11 06/02/20 25 [facility] Therapy Treatment Form completed Carolyn [facility] - [facility] 06/02/2025 13:09:37 05/29/20 25 [facility] Therapy Treatment Form completed Carolyn roland [place] - [facility] 05/29/2025 12:25:31 05/28/20 25 [facility] Therapy Treatment Form completed Carolyn luan [place] - [facility] 05/28/2025 13:02:44 05/27/20 25 Wound completed COLEMAN LAU NP [place] [facility] 05/27/2025 13:18:22 05/27/20 25 [facility] Therapy Treatment Form completed Carolyn luan [place] - [facility] 05/27/2025 12:50:01 05/26/20 [...] Care Therapy Treatment Form completed Carolyn luan [place] - [facility] 05/22/2025 12:33:28 05/21/20 25 [facility] Therapy Treatment Form completed Carolyn luan [place] - [facility] 05/21/2025 12:47:49 05/20/20 [...] Oxygen Care Therapy Treatment Form completed Carloyn [facility] - [facility] 05/18/2025 13:22:00 [...] 14:33:07 amputation of toe completed Luciana Noriega [place] - [facility] 04/23/2025 14:33:26 Imaging [...] Not available Not available Not available 04/23/2025 48996 3 RxNorm Luciana servin, [place] - [facility] 14:25:27 1104 Avelox medicatio n Not available Not available Not available 04/23/2025 79701 6 RxNorm Luciana servin, [place] - [facility] 14:25:52 1105 metformin medicatio n other Not available low 04/23/20252023 6809 RxNorm GI issue s Luciana servin, [place] - [facility] 14:26:11 1253 Product containin g angiotens in-conver ting enzyme inhibitor (product) medicatio n cough moderate Not available 06/26/2025 10349 009 SNOMED Not Available [facility] [place] 10:54:20 1254 metformin hydrochlo ride medicatio n Not available Not available Not available 06/26/2025 77714 3 RxNorm Not Available [facility] [place] [facility] 10:54:20 1358 ceftriaxo ne medicatio n rash moderate Not available 07/15/2025 2193 RxNorm Not Available [facility] 5 10:18:57 1359 droperido l medicatio n dyspnea Not available Not available 07/15/2025 3648 RxNorm Not Available [facility] [place] 10:18:57 1360 moxifloxa beck medicatio n rash moderate Not available 07/15/2025 38532 2 RxNorm Not Available [facility] [place] 10:18:57 1461 moxifloxa beck hydrochlo ride medicatio n Not available Not available Not available 08/24/20252015 96872 0 RxNorm Not Available [facility] [place] 04:35:37 Medications Name Sig Start Date Stop [...] and Address Organization Details Last Updated DateTime 85 /min 16 /min 98.4 [degF] 88 % 71 /min 16 /min 98.1 [degF] 93 % 161/85 mm[Hg] 152/82 mm[Hg] [facility] 12:53:57 Social History None recorded. Functional Status None [...] ICD10 Code Diagnosis IMO Codes Diagnosis Note [id number] Manfred Shelton MD Main Office [address] [place] [address] 07/24/2025 10:18:12 07/24/2025 17:58:24 5850 Manfred Shelton MD Main Office [address] [place] [address] 07/27/2025 10:15:44 07/27/2025 14:05:56 [id number] Manfred Shelton MD Main Office [address] [place] [address] 07/28/2025 10:36:12 07/28/2025 13:58:27 [id number] Manfred Shelton MD Main Office [address] [place] [address] 07/29/2025 10:14:56 07/29/2025 13:38:02 [id number] Manfred Shelton MD Main Office [address] [place] [address] 07/30/2025 10:32:11 07/31/2025 08:45:48 [id number] Manfred Shelton MD Main Office [address] [place] [address] 08/01/2025 08:56:19 08/01/2025 09:05:22 [id number] Manfred Shelton MD Main Office [address] [place] [address] 08/03/2025 10:12:43 08/03/2025 14:18:16 [id number] Manfred Shelton MD Main Office [address] [place] [address] 08/04/2025 10:18:33 08/04/2025 13:52:38 [id number] Manfred Shelton MD Main Office [address] [place] [address] 08/10/2025 10:19:50 08/10/2025 13:54:24 [id number] Manfred Shelton MD Main Office [address] [place] [address] 08/11/2025 10:13:33 08/11/2025 14:13:40 [id number] Manfred Shelton MD Main Office [address] [place] [address] 08/12/2025 10:17:32 08/12/2025 14:16:09 [id number] Manfred Shelton MD Main Office [address] [place] [address] 08/13/2025 09:43:21 08/13/2025 15:50:31 [id number] Manfred Shelton MD Main Office [address] [place] [address] 08/14/2025 10:42:31 08/14/2025 19:25:25 [id number] Manfred Shelton MD Main Office [address] [place] [address] 08/17/2025 10:11:40 08/17/2025 13:45:10 [id number] Manfred Shelton MD Main Office [address] [place] [address] 08/24/2025 10:23:30 08/24/2025 13:10:50 Health Concerns Section Related Observation LastModified by Organization Detai ls LastModified Time None Recorded Concern Status LastModified by Organization Details LastModified Time None Recorded Payers Encounter Date Sequence Insurance Name Policy Number Policy Gonzales Covered Member ID Gonzales Member ID Guarantor Name 08/24/2025 2 [employer] [facility] Seema Delacruz [id number] Seema Delacruz 08/24/2025 1 [employer] Seema Delacruz [id number] Seema Delacruz OBGyn Episode No OBEpisode recorded.
--- OUTSIDE RECORDS SUMMARY | 2025-09-16 16:31 | XMS_ITS | Continuity of Care Document ---
Author Organization [place] [facility], Main Office Address [address] [place] [address] Care Team Providers Care Diabetes Clinical Manager Name Role Phone YUSUF KEYES Primary Care Provider Assessment Encounter Date Assessment Date Assessment LastModified by Organization Details LastModified Time 07/31/2025 07/31/2025 Ms Delacruz presented today for her HBOT but pre=procedure exam continues to find TEED 2 changes to bilateral TMs. She has appointment with ENT but we were hoping TMs would clear enough to proceed with HBOT but they are not safe so we will suspend sessions until PE tubes are in place. CPT 31424 ICD DX L97.512, E11.621 Manfred Shelton MD [email or web address] Not available 08/01/2025 09:05:17 Plan of Treatment Reminders Order Date Submit [...] available Not available Hyperb jluio Therap [id number] 2025 10:30A [facility] Organization Details Recorded Time Upper respiratory infection [id number] Active 2024 COLEMAN MARTELL NP null, [place] - [facility] 12:18:40 Episodic migraine [id number] Active 2024 COLEMAN MARTELL NP null, [place] [facility] 12:34:01 Type 2 diabetes mellitus 30122039 Active 2024 COLEMAN MARTELL NP null, [place] [facility] 15:27:12 Refractory migraine with aura 482282853 Active 2024 COLEMAN MARTELL NP null, [place] [facility] 10:56:52 Recurrent acute frontal sinusitis Active 2024 COLEMAN MARTELL NP null, [place] [facility] 12:47:05 Candidiasis of vagina 67764910 Active 2024 COLEMAN MARTELL NP null, [place] [facility] 12:47:26 Acute upper respiratory infection 56813368 Active 2024 COLEMAN MARTELL NP null, [place] [facility] 12:32:57 Problem Notes None recorded. Procedures Surgical History Date Name Laterality Status Provider Name and Address Organization Details Recorded Time 09/15/20 25 [facility] Therapy Treatment Form completed Carolyn luan [place] - [facility] 09/15/2025 12:48:40 09/14/20 25 [facility] Therapy Treatment Form completed COLEMAN MARTELL NP [place] - [facility] 09/14/2025 14:54:43 09/07/20 25 [facility] Therapy Treatment Form completed [facility] - [facility] 09/07/2025 12:38:58 08/31/20 25 [facility] Therapy Treatment Form completed [facility] - [facility] 08/31/2025 12:48:46 08/25/20 25 [facility] Therapy Treatment Form completed [facility] - [facility] 08/25/2025 12:52:26 08/24/20 25 [facility] Therapy Treatment Form completed [facility] - [facility] 08/24/2025 12:53:43 08/17/20 25 [facility] Therapy Treatment Form completed [facility] - [facility] 08/17/2025 13:02:48 08/14/20 25 [facility] Therapy Treatment Form completed Lisa Sosa [place] - [facility] 08/14/2025 12:43:08 08/13/20 25 [facility] Therapy Treatment Form completed [facility] - [facility] 08/13/2025 12:27:58 08/12/20 25 [facility] Therapy Treatment Form completed [facility] - [facility] 08/12/2025 12:36:02 08/12/20 25 Wound completed COLEMAN MARTELL NP [place] [facility] 08/12/2025 14:15:15 08/11/20 25 [facility] Therapy Treatment Form completed [facility] - [facility] 08/11/2025 12:58:18 08/10/20 25 [facility] Therapy Treatment Form completed [facility] - [facility] 08/10/2025 12:57:23 08/04/20 25 [facility] Therapy Treatment Form completed COLEMAN MARTELL NP [place] [facility] 08/04/2025 13:51:50 08/03/20 25 [facility] Therapy Treatment Form completed COLEMAN MARTELL NP [place] [facility] 08/03/2025 14:17:35 07/30/20 25 [facility] Therapy Treatment Form completed [facility] - [facility] 07/30/2025 12:38:27 07/29/20 [facility] Therapy Treatment Form completed [facility] - [facility] 07/29/2025 12:40:06 07/28/20 25 [facility] Therapy Treatment Form completed COLEMAN MARTELL NP [place] [facility] 07/28/2025 13:56:37 07/27/20 [facility] Therapy Treatment Form completed COLEMAN MARTELL NP [place] [facility] 07/27/2025 13:59:51 07/24/20 [facility] Therapy Treatment Form completed Manfred Shelton MD [place] [facility] 07/24/2025 17:57:20 07/23/20 25 [facility] Therapy Treatment Form completed [facility] - [facility] 07/23/2025 12:41:49 07/22/20 25 [facility] Therapy Treatment Form completed [facility] - [facility] 07/22/2025 12:53:32 07/21/20 25 [facility] Therapy Treatment Form completed [facility] - [facility] 07/21/2025 12:43:55 07/20/20 25 [facility] Therapy Treatment Form completed [facility] - [facility] 07/20/2025 12:58:21 07/17/20 25 [facility] Therapy Treatment Form completed Lisa Sosa [place] [facility] 07/17/2025 12:35:46 07/16/20 25 [facility] Therapy Treatment Form completed Frank Gage [place] [facility] 07/16/2025 16:54:47 07/15/20 25 Wound completed COLEMAN MARTELL NP [place] [facility] 07/15/2025 14:47:28 07/15/20 25 [facility] Therapy Treatment Form completed Carolyn roland [place] - [facility] 07/15/2025 12:39:29 07/14/20 25 [facility] Therapy Treatment Form completed COLEMAN MARTELL NP [place] [facility] 07/14/2025 15:14:39 07/09/20 25 [facility] Therapy Treatment Form completed Carolyn roland [place] - [facility] 07/09/2025 12:46:05 07/08/20 25 [facility] Therapy Treatment Form completed Carolyn roland [place] - [facility] 07/08/2025 12:41:28 07/07/20 25 [facility] Therapy Treatment Form completed Manfred Shelton MD [place] [facility] 07/08/2025 08:10:21 07/06/20 25 [facility] Therapy Treatment Form completed Carolyn roland [place] - [facility] 07/06/2025 13:06:29 07/03/20 25 [facility] Therapy Treatment Form completed Paula Licea [place] [facility] 07/03/2025 12:47:29 07/02/20 25 [facility] Therapy Treatment Form completed Paulajuancarlos Licea [place] [facility] 07/02/2025 13:06:39 07/01/20 25 [facility] Therapy Treatment Form completed Paulajuancarlos Licea [place] [facility] 07/01/2025 13:05:37 06/30/20 25 [facility] Therapy Treatment Form completed COLEMAN MARTELL NP [place] [facility] 06/30/2025 13:46:12 06/29/20 25 [facility] Therapy Treatment Form completed Carolyn roland [place] - [facility] 06/29/2025 13:24:58 06/26/20 25 [facility] Therapy Treatment Form completed Manfred Shelton MD [place] - [facility] 06/26/2025 16:57:55 06/25/20 25 [facility] Therapy Treatment Form completed Carolyn roland [place] - [facility] 06/25/2025 12:47:07 06/24/20 25 [facility] Therapy Treatment Form completed Carolyn roland [place] [facility] 06/24/2025 12:40:20 06/23/20 25 [facility] Therapy Treatment Form completed [facility] - [facility] 06/23/2025 12:39:50 06/22/20 25 [facility] Therapy Treatment Form completed [facility] - [facility] 06/22/2025 12:49:55 06/19/20 25 [facility] Therapy Treatment Form completed Manfred Shelton MD [place] [facility] 06/19/2025 14:13:24 06/18/20 25 [facility] Therapy Treatment Form completed COLEMAN MARTELL NP [place] [facility] 06/18/2025 13:17:34 06/17/20 25 [facility] Therapy Treatment Form completed [facility] - [facility] 06/17/2025 12:29:15 06/16/20 25 [facility] Therapy Treatment Form completed [facility] - [facility] 06/16/2025 12:45:53 06/15/20 25 [facility] Therapy Treatment Form completed [facility] 06/15/2025 12:47:07 06/12/20 25 [facility] Therapy Treatment Form completed Manfred Shelton MD [place] [facility] 06/12/2025 14:54:52 06/11/20 25 [facility] Therapy Treatment Form completed [facility] - [facility] 06/11/2025 13:02:39 06/10/20 25 [facility] Therapy Treatment Form completed [facility] - [facility] 06/10/2025 12:50:18 06/08/20 25 [facility] Therapy Treatment Form completed [facility] - [facility] 06/08/2025 12:56:07 [...] Care Therapy Treatment Form completed [facility] [place] [facility] 05/29/2025 [...] Care Therapy Treatment Form completed [facility] [place] [facility] 05/22/2025 12:33:28 05/21/20 25 [facility] Therapy Treatment Form completed [facility] [place] [facility] 05/21/2025 [...] Not available Not available Not available 04/23/2025 64752 3 RxNorm Luciana servin, [place] - [facility] 14:25:27 1104 Avelox medicatio n Not available Not available Not available 04/23/2025 74478 6 RxNorm Luciana servin, [place] - [facility] 14:25:52 1105 metformin medicatio n other Not available [facility] 04/23/20252023 6809 RxNorm GI issue s Luciana servin, [place] - [facility] 14:26:11 1253 Product containin g angiotens in-conver ting enzyme inhibitor (product) medicatio n cough moderate Not available 06/26/2025 70267 009 SNOMED Not Available taisha - [employer] - prod 5 10:54:20 1254 metformin hydrochlo ride medicatio n Not available Not available Not available 06/26/2025 27555 3 RxNorm Not Available [facility]isha - External Data [employer] - prod 5 10:54:20 1358 ceftriaxo ne medicatio n rash moderate Not available 07/15/2025 2193 RxNorm Not Available [facility] - External Data [employer] - prod 5 10:18:57 1359 droperido l medicatio n dyspnea Not available Not available 07/15/2025 3648 RxNorm Not Available [facility]isha - External Data Service - prod 10:18:57 1360 moxifloxa beck medicatio n rash moderate Not available 07/15/2025 09483 2 RxNorm Not Available [employer] Data Service - prod 10:18:57 1461 moxifloxa beck hydrochlo ride medicatio n Not available Not available Not available 08/24/20252015 92464 0 RxNorm Not Available [employer] External Data Service - prod 04:35:37 Medications [...] Available Not Available No t Available Vitals None Recorded Social History None recorded. Functional Status None [...] ICD10 Code Diagnosis IMO Codes Diagnosis Note [id number] Manfred Shelton MD Main Office [address] [place] [address] 06/30/2025 10:42:21 06/30/2025 13:46:39 [id number] Manfred Shelton MD Main Office [address] [place] [address] 07/01/2025 10:49:18 07/01/2025 13:25:24 [id number] Manfred Shelton MD Main Office [address] [place] [address] 07/02/2025 10:15:06 07/03/2025 07:21:23 [id number] Manfred Shelton MD Main Office [address] [place] [address] 07/03/2025 10:50:33 07/03/2025 17:53:35 [id number] Manfred Shelton MD Main Office [address] [place] [address] 07/06/2025 10:54:52 07/06/2025 14:37:01 [id number] Manfred Shelton MD Main Office [address] [place] [address] 07/07/2025 10:14:11 07/08/2025 08:12:24 [id number] Manfred Shelton MD Main Office [address] [place] [address] 07/08/2025 10:22:23 07/08/2025 19:57:51 [id number] Manfred Shelton MD Main Office [address] [place] [address] 07/09/2025 10:23:51 07/09/2025 16:04:46 [id number] Manfred Shelton MD Main Office [address] [place] [address] 07/14/2025 10:06:05 07/14/2025 15:15:47 [id number] Manfred Shelton MD Main Office [address] [place] [address] 07/15/2025 10:17:40 07/15/2025 13:26:46 [id number] Manfred Shelton MD Main Office [address] [place] [address] 07/15/2025 14:45:53 07/15/2025 14:48:12 [id number] Manfred Shelton MD Main Office [address] [place] [address] 07/16/2025 10:18:19 07/16/2025 14:20:47 [id number] Manfred Shelton MD Main Office [address] [place] [address] 07/17/2025 10:06:47 07/17/2025 14:10:36 Refractory migraine with aura [id number] G43.202 [id number] Manfred Shelton MD Main Office [address] [place] [address] 07/20/2025 11:09:11 07/20/2025 14:45:37 [id number] Manfred Shelton MD Main Office [address] [place] [address] 07/21/2025 10:11:12 07/21/2025 12:49:36 [id number] Manfred Shelton MD Main Office [address] [place] [address] 07/22/2025 10:10:07 07/22/2025 13:11:46 [id number] Manfred Shelton MD Main Office [address] [place] [address] 07/23/2025 10:48:45 07/23/2025 15:03:21 [id number] Manfred Shelton MD Main Office [address] [place] [address] 07/24/2025 10:18:12 07/24/2025 17:58:24 [id number] Manfred Shelton MD Main Office [address] [place] [address] 07/27/2025 10:15:44 07/27/2025 14:05:56 [id number] Manfred Shelton MD Main Office [address] [place] [address] 07/28/2025 10:36:12 07/28/2025 13:58:27 [id number] Manfred Shelton MD Main Office [address] [place] [address] 07/29/2025 10:14:56 07/29/2025 13:38:02 [id number] Manfred Shelton MD Main Office [address] [place] [address] 07/30/2025 10:32:11 07/31/2025 08:45:48 Health Concerns Section Related Observation LastModified by Organization Detai ls LastModified Time None Recorded Concern Status LastModified by Organization Details LastModified Time None Recorded Payers Encounter Date Sequence Insurance Name Policy Number Policy Gonzales Covered Member ID Gonzales Member ID Guarantor Name 07/31/2025 2 [employer] Seema Delacruz [id number] Seema Delacruz 07/31/2025 1 [employer] Seema Delacruz [id number] Seema Delacruz OBGyn Episode No OBEpisode recorded.
--- OUTSIDE RECORDS SUMMARY | 2025-09-16 16:31 | XMS_ITS | Continuity of Care Document ---
Author Organization [place] - [facility], Main Office Address [address] [place] [address] Care Team Providers Care Maintenance Department Technician Name Role Phone STEPHY YUSUF Primary [...] Modified By Organization Details Last Modified Time 07/28/2025 [id number] BACKGROUND: Seema Delacruz is a 55 y.o. [...] Diagnosis: L97.512, E11.621 Session Notes: Today's Date 28Jul2025 HBOT session 59 of 60 Next HBOT 29Jul2025 30Jul - Patient cleared for 1st HBOT [...] antibiotics for an upper respiratory infection. Nicolasa GLASS ETCHER 07Aug- Patient cleared for HBOT today. VS stable. PAtient had little trouble reaching pressure today, but had to come out of chamber early due to needing to use restroom. She managed to do 4 segs-118 minutes. [place].Tanner GLASS ETCHER 08Aug - Patient cleared for HBOT today. VS stable. Patient completed full session with no problem. Antoinette Lau GLASS ETCHER 11Aug - Patient cleared for HBOT today. [...] full session with no problem. Antoinette Lau GLASS ETCHER 13Aug - Patient cleared for HBOT today. VS stable. Patient completed full session with no problem. Wound care to follow treatment today. Antoinette Lau APRN 14Aug - Patient cleared for HBOT today. VS stable. Patient completed full session with no problem. Antoinette Lau GLASS ETCHER 15Aug - Patient cleared for HBOT today. [...] attempt to try again on Sunday. Nicolasa GLASS ETCHER 18Aug - Patient cleared for HBOT today. VS stable. Patient completed full session with no problem. Antoinette Lau GLASS ETCHER 19Aug - Patient deemed safe for HBOT [...] full session with no problem. [place].Jessica Lau GLASS ETCHER 12Sep - Found safe for HBOT this [...] full session with no problem. IsraelIlsa Lau GLASS ETCHER 26Sep - Deemed safe for HBOT on this date and completed the full session uneventfully. [facility] 29Sep - Patient cleared for HBOT today. VS stable. Patient completed 3 Seg session with no problem. M.ADeepali Lau GLASS ETCHER 30Sep - Patient cleared for HBOT today. VS stable. Patient completed full session with no problem. M.Jessica Lau GLASS ETCHER 01Oct - Patient cleared for HBOT today. VS stable. Patient completed full session with no problem. M.Jessica Lau GLASS ETCHER 02Oct - Cleared for HBOT this date [...] full session with no problem. [place].Jessica Lau GLASS ETCHER 15Oct - Patient cleared for HBOT today. VS stable. Patient completed full session with no problem. M.Jessica Lau GLASS ETCHER 16Oct - Patient cleared for HBOT today. VS stable. Patient completed full session with no problem. M.Jessica Lau GLASS ETCHER 17Oct - Patient cleared for HBOT today. VS stable. Patient completed full session with no problem. [place].Jessica Lau GLASS ETCHER 20Oct - Patient an hour late today due to transportation company. She can only do an hour, or she will not have a ride back home. Cleared for HBOT, VS stable. Finished 1 hour session with no issues or complaints. M.Tanner GLASS ETCHER 21Oct - Patient cleared for HBOT today. VS stable. Patient completed full session with no problem. M.ADeepali Lau GLASS ETCHER 22Oct - Patient cleared for HBOT today. VS stable. Patient completed full session with no problem. M.Jessica Lau GLASS ETCHER 23Oct - Patient cleared for HBOT today. VS stable. Patient completed full session with no problem. Antoinette Sotoleyla HUTTONN 24Oct - Deemed safe for HBOT this date and did complete full session without problem. [facility] 27Oct - Patient cleared for HBOT today. [...] full session with no other problem. Antoinette Judi SILVA 28Oct - Patient cleared for HBOT today, [...] called in Augmentin to her pharmacy. Antoinette Sotowood GLASS ETCHER Not available 07/28/2025 13:58:19 Reason for Referral None Reported. Results Created [...] Organization Details Recorded Time Upper respiratory infection 05186904 Active 2024 COLEMAN LAU NP null, [place] - [facility] 12:18:40 Episodic migraine [id number] 06 Active 2024 COLEMAN LAU NP null, [place] - [facility] 12:34:01 Type 2 diabetes mellitus 12426088 Active 2024 COLEMAN LAU NP null, [place] [facility] 15:27:12 Refractory migraine with aura 913546400 Active 2024 COLEMAN LAU NP null, [place] [facility] 10:56:52 Recurrent acute frontal sinusitis Active 2024 COLEMAN LAU NP null, [place] [facility] 12:47:05 Candidiasis of vagina 93089392 Active 2024 COLEMAN LAU NP null, [place] - [facility] 12:47:26 Acute upper respiratory infection 93540122 Active 2024 COLEMAN LAU NP null, [place] - [facility] 12:32:57 Problem Notes None recorded. Procedures Surgical History Date Name Laterality Status Provider Name and Address Organization Details Recorded Time 09/15/20 [facility] Therapy Treatment Form completed Carolyn roland [place] - [facility] 09/15/2025 12:48:40 09/14/20 25 [facility] Therapy Treatment Form completed COLEMAN LAU NP [place] - [facility] 09/14/2025 14:54:43 09/07/20 25 [facility] Therapy Treatment Form completed Carolyn luan [place] - [facility] 09/07/2025 12:38:58 08/31/20 25 [facility] Therapy Treatment Form completed Carolyn luan [place] - [facility] 08/31/2025 12:48:46 08/25/20 25 [facility] Therapy Treatment Form completed Carolyn luan [place] - [facility] 08/25/2025 12:52:26 08/24/20 25 [facility] Therapy Treatment Form completed [facility] - [facility] 08/24/2025 12:53:43 08/17/20 25 [facility] Therapy Treatment Form completed Carolyn luan [place] - [facility] 08/17/2025 13:02:48 08/14/20 25 [facility] Therapy Treatment Form completed Lisa Sosa [place] - [facility] 08/14/2025 12:43:08 08/13/20 25 [facility] Therapy Treatment Form completed [facility] - [facility] 08/13/2025 12:27:58 08/12/20 25 [facility] Therapy Treatment Form completed [facility] - [facility] 08/12/2025 12:36:02 08/12/20 25 Wound completed COLEMAN LAU NP [place] - [facility] 08/12/2025 14:15:15 08/11/20 25 [facility] Therapy Treatment Form completed [facility] - [facility] 08/11/2025 12:58:18 08/10/20 25 [facility] Therapy Treatment Form completed [facility] - [facility] 08/10/2025 12:57:23 08/04/20 25 [facility] Therapy Treatment Form completed COLEMAN LAU NP [place] [facility] 08/04/2025 13:51:50 08/03/20 25 [facility] Therapy Treatment Form completed COLEMAN LAU NP [place] [facility] 08/03/2025 14:17:35 07/30/20 25 [facility] Therapy Treatment Form completed [facility] - [facility] 07/30/2025 12:38:27 07/29/20 25 [facility] Therapy Treatment Form completed [facility] - [facility] 07/29/2025 [...] Oxygen Care Therapy Treatment Form completed [facility] - [facility] 07/23/2025 12:41:49 07/22/20 25 [facility] Therapy Treatment Form completed [facility] - [facility] 07/22/2025 12:53:32 07/21/20 25 [facility] Therapy Treatment Form completed [facility] - [facility] 07/21/2025 12:43:55 07/20/20 25 [facility] Therapy Treatment Form completed Carolyn roland [place] - [facility] 07/20/2025 12:58:21 07/17/20 [...] Care Therapy Treatment Form completed Carolyn roland [place] - [facility] 07/15/2025 12:39:29 07/14/20 25 [facility] Therapy Treatment Form completed COLEMAN LAU NP [place] - [facility] 07/14/2025 15:14:39 07/09/20 25 [facility] Therapy Treatment Form completed Carolyn roland [place] - [facility] 07/09/2025 12:46:05 07/08/20 25 [facility] Therapy Treatment Form completed Carolyn roland [place] - [facility] 07/08/2025 12:41:28 07/07/20 25 [facility] Therapy Treatment Form completed Manfred Shelton MD [place] - [facility] 07/08/2025 08:10:21 07/06/20 25 [facility] Therapy Treatment Form completed Carolyn roland [place] - [facility] 07/06/2025 13:06:29 07/03/20 [...] [facility] Therapy Treatment Form completed COLEMNA LAU NP [place] - [facility] 06/30/2025 13:46:12 06/29/20 25 [facility] Therapy Treatment Form completed Carolyn roland [place] - [facility] 06/29/2025 13:24:58 06/26/20 25 [facility] Therapy Treatment Form completed Manfred Shelton MD [place] - [facility] 06/26/2025 16:57:55 06/25/20 25 [facility] Therapy Treatment Form completed [facility] - [facility] 06/25/2025 12:47:07 06/24/20 25 [facility] Therapy Treatment Form completed [facility] - [facility] 06/24/2025 12:40:20 06/23/20 25 [facility] Therapy Treatment Form completed [facility] - [facility] 06/23/2025 12:39:50 06/22/20 25 [facility] Therapy Treatment Form completed [facility] - [facility] 06/22/2025 12:49:55 06/19/20 25 [facility] Therapy Treatment Form completed Manfred Shelton MD [place] [facility] 06/19/2025 14:13:24 06/18/20 25 [facility] Therapy Treatment Form completed COLEMAN LAU NP [place] [facility] 06/18/2025 13:17:34 06/17/20 25 [facility] Therapy Treatment Form completed [facility] - [facility] 06/17/2025 12:29:15 06/16/20 25 [facility] Therapy Treatment Form completed [facility] - [facility] 06/16/2025 12:45:53 06/15/20 25 [facility] Therapy Treatment Form completed [facility] - [facility] 06/15/2025 12:47:07 06/12/20 25 [facility] Therapy Treatment Form completed Manfred Shelton [place] - [facility] 06/12/2025 14:54:52 06/11/20 25 [facility] Therapy Treatment Form completed [facility] - [facility] 06/11/2025 13:02:39 06/10/20 25 [facility] Therapy Treatment Form completed [facility] - [facility] 06/10/2025 12:50:18 06/08/20 25 [facility] Therapy Treatment Form completed [facility] - [facility] 06/08/2025 [...] Care Therapy Treatment Form completed Carolyn roland [place] - [facility] 05/27/2025 12:50:01 05/26/20 [...] Care Therapy Treatment Form completed Carolyn roland [place] - [facility] 05/18/2025 13:22:00 05/15/20 [...] Not available Not available Not available 04/23/2025 40554 3 RxNorm DOLORES Andrew - [facility] 14:25:27 1104 Avelox medicatio n Not available Not available Not available 04/23/2025 75326 6 RxNorm Luciana servin, [place]OLORES - [facility] 14:25:52 1105 metformin medicatio n other Not available [facility] 04/23/20252023 6809 RxNorm GI issue s Luciana servin, [place]OLORES - [facility] 14:26:11 1253 Product containin g angiotens in-conver ting enzyme inhibitor (product) medicatio n cough moderate Not available 06/26/2025 82891 009 SNOMED Not Available taisha - [employer] - prod 5 10:54:20 1254 metformin hydrochlo ride medicatio n Not available Not available Not available 06/26/2025 78511 3 RxNorm Not Available taisha - [employer] - prod 5 10:54:20 1358 ceftriaxo ne medicatio n rash moderate Not available 07/15/2025 2193 RxNorm Not Available taisha - [employer] - prod 10:18:57 1359 droperido l medicatio n dyspnea Not available Not available 07/15/2025 3648 RxNorm Not Available taisha [employer] - prod 10:18:57 1360 moxifloxa beck medicatio n rash moderate Not available 07/15/2025 94512 2 RxNorm Not Available taisha [employer] - prod 10:18:57 1461 moxifloxa beck hydrochlo ride medicatio n Not available Not available Not available 08/24/20252015 12218 0 RxNorm Not Available taisha [employer] - prod 04:35:37 Medications Name [...] and Address Organization Details Last Updated DateTime 87 /min 16 /min 98.8 [degF] 93 % 75 /min 16 /min 98.4 [degF] 89 % 152/80 mm[Hg] 131/70 mm[Hg] [facility] - [facility] 12:47:00 Social History None recorded. Functional Status None [...] Manfred Shelton MD Main Office [address] [address] 06/29/2025 10:44:14 06/29/2025 13:39:12 [id number] Manfred Shelton MD Main Office [address] [address] 06/30/2025 10:42:21 06/30/2025 13:46:39 [id number] Manfred Shelton MD Main Office [address] [address] 07/01/2025 10:49:18 07/01/2025 13:25:24 [id number] Manfred Shelton MD Main Office [address] [address] 07/02/2025 10:15:06 07/03/2025 07:21:23 [id number] Manfred Shelton MD Main Office [address] [address] 07/03/2025 10:50:33 07/03/2025 17:53:35 [id number] Manfred Shelton MD Main Office [address] [address] 07/06/2025 10:54:52 07/06/2025 14:37:01 [id number] Manfred Shelton MD Main Office [address] [place] [address] 07/07/2025 10:14:11 07/08/2025 08:12:24 [id number] Manfred Shelton MD Main Office [address] [place] [address] 07/08/2025 10:22:23 07/08/2025 19:57:51 [id number] Manfred Shelton MD Main Office [address] [place] [address] 07/09/2025 10:23:51 07/09/2025 16:04:46 [id number] Manfred Shelton MD Main Office [address] [place] [address] 07/14/2025 10:06:05 07/14/2025 15:15:47 [id number] Manfred Shelton MD Main Office [address] [place] [address] 07/15/2025 10:17:40 07/15/2025 13:26:46 [id number] Manfred Shelton MD Main Office [address] [place] [address] 07/15/2025 14:45:53 07/15/2025 14:48:12 [id number] Manfred Shelton MD Main Office [address] [place] [address] 07/16/2025 10:18:19 07/16/2025 14:20:47 [id number] Manfred Shelton MD Main Office [address] [place] [address] 07/17/2025 10:06:47 07/17/2025 14:10:36 Refractory migraine with aura [id number] G43.513 [id number] Manfred Shelton MD Main Office [address] [place] [address] 07/20/2025 11:09:11 07/20/2025 14:45:37 [id number] Manfred Shelton MD Main Office [address] [place] [address] 07/21/2025 10:11:12 07/21/2025 12:49:36 [id number] Manfred Shelton MD Main Office [address] [place] [address] 07/22/2025 10:10:07 07/22/2025 13:11:46 [id number] Manfred Shelton MD Main Office [address] [place] [address] 07/23/2025 10:48:45 07/23/2025 15:03:21 [id number] Manfred Shelton MD Main Office [address] [place] [address] 07/24/2025 10:18:12 07/24/2025 17:58:24 [id number] Manfred Shelton MD Main Office [address] [place] [address] 07/27/2025 10:15:44 07/27/2025 14:05:56 [id number] Manfred Shelton MD Main Office [address] [place] [address] 07/28/2025 10:36:12 07/28/2025 13:58:27 Health Concerns Section Related Observation LastModified by Organization Detai ls LastModified Time None Recorded Concern Status LastModified by Organization Details LastModified Time None Recorded Payers Encounter Date Sequence Insurance Name Policy Number Policy Gonzales Covered Member ID Gonzales Member ID Guarantor Name 07/28/2025 2 [employer] Seema Delacruz [id number] Seema Delacruz 07/28/2025 1 [employer] Seema Delacruz [id number] Seema Delacruz OBGyn Episode No OBEpisode recorded.
--- OUTSIDE RECORDS SUMMARY | 2025-09-16 16:31 | XMS_ITS | Continuity of Care Document ---
Author Organization [place] [facility], Main Office Address [address] [place] [address] Care Team Providers Care Electronic Design Engineer Name Role Phone STEPHY YUSUF Primary [...] Modified By Organization Details Last Modified Time 07/09/2025 [id number] BACKGROUND: Seema Delacruz is a 55 y.o. [...] Diagnosis: L97.512, E11.621 Session Notes: Today's Date 09Jul2025 HBOT session 48 of 60 Next HBOT 10Jul2025 30Jul - Patient cleared for 1st HBOT [...] antibiotics for an upper respiratory infection. Nicolasa [employer] 07Aug- Patient cleared for HBOT today. VS stable. PAtient had little trouble reaching pressure today, but had to come out of chamber early due to needing to use restroom. She managed to do 4 segs-118 minutes. [place].Tanner [employer] MEMBER 08Aug - Patient cleared for HBOT today. VS stable. Patient completed full session with no problem. Antoinette Lau [employer] MEMBER 11Aug - Patient cleared for HBOT today. [...] full session with no problem. Antoinette Lau [employer] MEMBER 13Aug - Patient cleared for HBOT today. VS stable. Patient completed full session with no problem. Wound care to follow treatment today. Antoinette Lau APRN 14Aug - Patient cleared for HBOT today. VS stable. Patient completed full session with no problem. Antoinette Lau [employer] MEMBER 15Aug - Patient cleared for HBOT today. [...] attempt to try again on Sunday. Nicolasa [employer] MEMBER 18Aug - Patient cleared for HBOT today. VS stable. Patient completed full session with no problem. Antoinette Lau [employer] MEMBER 19Aug - Patient deemed safe for HBOT [...] significant anxiety. Dressing change today per nursing. [facility] 25Aug - Patient deemed safe for HBOT [...] full session with no problem. [place].Jessica Lau [employer] MEMBER 12Sep - Found safe for HBOT this [...] Patient completed full session with no problem. nAtoinette Lau APRN 24Sep - Patient cleared for HBOT today. VS stable. Patient completed full session with no problem. Antoinette Lau APRN 25Sep - Patient cleared for HBOT today. VS stable. Patient completed full session with no problem. [place].Jessica [place] [employer] MEMBER 26Sep - Deemed safe for HBOT on this date and completed the full session uneventfully. [facility] 29Sep - Patient cleared for HBOT today. VS stable. Patient completed 3 Seg session with no problem. [place].Jessica Lau [employer] MEMBER 30Sep - Patient cleared for HBOT today. VS stable. Patient completed full session with no problem. [place].Jessica Lau [employer] MEMBER 01Oct - Patient cleared for HBOT today. VS stable. Patient completed full session with no problem. [place].Jessica Lau [employer] MEMBER 02Oct - Cleared for HBOT this date and completed full session free of problem. [facility] 03Oct - Deemed safe for HBOT today and completed her full session without problem. [facility] 06Oct - Found safe for HBOT this date and tolerated her session free of problem. [facility] 07Oct- Cleared for HBOT this date and completed the full session without problem. [facility] 08Oct - Glu on arrival marginal so given caloric intake first and then cleared for HBOT this day. Had no problem completing full session emerging at Glu 139. [facility] 09Oct - Deemed safe for HBOT today and completed full session without problem. [facility] [email or web address] Not available 07/09/2025 16:04:40 Reason for Referral None Reported. Problems Name Problem SNOMED Code Status Onset Date Resolution Date Notes Provider Name and Address Organization Details Recorded Time Upper respiratory infection 74140126 Active 2024 COLEMAN LAU NP null, [place] - [facility] 12:18:40 Episodic migraine 4614266252615 Active 2024 COLEMAN LAU NP null, [place] [facility] 12:34:01 Type 2 diabetes mellitus 11120861 Active 2024 COLEMAN LAU NP null, [place] [facility] 15:27:12 Refractory migraine with aura 323699472 Active 2024 COLEMAN LAU NP null, [place] [facility] 10:56:52 Recurrent acute frontal sinusitis Active 2024 COLEMAN LAU NP null, [place] [facility] 12:47:05 Candidiasis of vagina 92950428 Active 2024 COLEMAN LAU NP null, [place] - [facility] 12:47:26 Acute upper respiratory infection 24701854 Active 2024 COLEMAN LAU NP malathi, [place] - [facility] 12:32:57 Problem Notes None recorded. Procedures Surgical History Date Name Laterality Status Provider Name and Address Organization Details Recorded Time 09/15/20 [facility] Therapy Treatment Form completed [facility] - [facility] 09/15/2025 12:48:40 09/14/20 25 [facility] Therapy Treatment Form completed COLEMAN LAU NP [place] - [facility] 09/14/2025 14:54:43 09/07/20 25 [facility] Therapy Treatment Form completed [facility] - [facility] 09/07/2025 12:38:58 08/31/20 25 [facility] Therapy Treatment Form completed [facility] - [facility] 08/31/2025 12:48:46 08/25/20 25 [facility] Therapy Treatment Form completed [facility] - [facility] 08/25/2025 12:52:26 08/24/20 25 [facility] Therapy Treatment Form completed [facility] - [facility] 08/24/2025 12:53:43 08/17/20 25 [facility] Therapy Treatment Form completed [facility] - [facility] 08/17/2025 13:02:48 08/14/20 25 [facility] Therapy Treatment Form completed Lisa Sosa [place] - [facility] 08/14/2025 12:43:08 08/13/20 25 [facility] Therapy Treatment Form completed [facility] - [facility] 08/13/2025 12:27:58 08/12/20 25 [facility] Therapy Treatment Form completed [facility] - [facility] 08/12/2025 12:36:02 08/12/20 25 Wound completed COLEMAN LAU NP [place] - [facility] 08/12/2025 14:15:15 08/11/20 25 [facility] Therapy Treatment Form completed [facility] - [facility] 08/11/2025 12:58:18 08/10/20 25 [facility] Therapy Treatment Form completed [facility] - [facility] 08/10/2025 12:57:23 08/04/20 [...] [facility] Therapy Treatment Form completed [facility] [place] [facility] 07/23/2025 12:41:49 07/22/20 [facility] Therapy Treatment Form completed [facility] - [facility] 07/22/2025 12:53:32 07/21/20 [facility] Therapy Treatment Form completed [facility] [place] - [facility] 07/21/2025 12:43:55 07/20/20 [facility] Therapy Treatment Form completed [facility] [place] [facility] 07/20/2025 12:58:21 [...] [facility] Therapy Treatment Form completed [facility] [place] [facility] 07/15/2025 12:39:29 07/14/20 25 [facility] Therapy Treatment Form completed COLEMAN LAU NP [place] [facility] 07/14/2025 15:14:39 07/09/20 25 [facility] Therapy Treatment Form completed [facility] - [facility] 07/09/2025 12:46:05 07/08/20 25 [facility] Therapy Treatment Form completed [facility] - [facility] 07/08/2025 12:41:28 07/07/20 25 [facility] Therapy Treatment Form completed Manfred Shelton MD [place] - [facility] 07/08/2025 08:10:21 07/06/20 25 [facility] Therapy Treatment Form completed [facility] - [facility] 07/06/2025 13:06:29 07/03/20 25 [facility] Therapy Treatment Form completed Paula Licea [place] - [facility] 07/03/2025 12:47:29 07/02/20 25 [facility] Therapy Treatment Form completed Paula Licea [place] - [facility] 07/02/2025 13:06:39 07/01/20 [...] [facility] - [facility] 06/24/2025 12:40:20 06/23/20 25 [facility] Therapy Treatment Form completed [facility] - [facility] 06/23/2025 12:39:50 06/22/20 [...] [facility] 06/11/2025 13:02:39 06/10/20 25 [facility] Therapy Treatment Form completed [facility] - [facility] 06/10/2025 12:50:18 06/08/20 25 [facility] Therapy Treatment Form completed [facility] - [facility] 06/08/2025 12:56:07 06/05/20 25 [facility] Therapy Treatment Form completed Eveliapatricia Winters [place] - [facility] 06/05/2025 14:28:16 06/04/20 25 Wound completed COLEMAN LAU NP [place] - [facility] 06/04/2025 14:24:29 06/04/20 25 [facility] Therapy Treatment Form completed COLEMAN LAU NP [place] [facility] 06/04/2025 13:56:49 06/03/20 25 [facility] Therapy Treatment Form completed Eveliashaggy Winters [place] - [facility] 06/03/2025 14:11:11 06/02/20 25 [facility] Therapy Treatment Form completed [facility] - [facility] 06/02/2025 13:09:37 05/29/20 25 [facility] Therapy Treatment Form completed [facility] - [facility] 05/29/2025 12:25:31 05/28/20 [...] Care Therapy Treatment Form completed Carolyn roland [place] - [facility] 05/21/2025 12:47:49 05/20/20 [...] Not available Not available Not available 04/23/2025 85227 3 RxNorm Luciana Noriega null, [place] - [facility] 5 14:25:27 1104 Avelox medicatio n Not available Not available Not available 04/23/2025 54089 6 RxNorm Luciana Noriega null, [place] - [facility] 5 14:25:52 1105 metformin medicatio n other Not available low 04/23/20252023 6809 RxNorm GI issue s Luciana Noriega null, [place] - [facility] 5 14:26:11 1253 Product containin g angiotens in-conver ting enzyme inhibitor (product) medicatio n cough moderate Not available 06/26/2025 22986 009 SNOMED Not Available taisha - External Data [employer] - prod 10:54:20 1254 metformin hydrochlo ride medicatio n Not available Not available Not available 06/26/2025 58848 3 RxNorm Not Available taisha - External [...] medicatio n rash moderate Not available 07/15/2025 27756 2 RxNorm Not Available taisha - External Data [employer] - prod 5 10:18:57 1461 moxifloxa beck hydrochlo ride medicatio n Not available Not available Not available 08/24/20252015 05808 0 RxNorm Not Available taisha - External [...] Address Organization Details Last Updated DateTime 5 87 /min 16 /min 97.7 [degF] 93 % 83 /min 16 /min 98.1 [degF] 92 % 176/89 mm[Hg] 140/76 mm[Hg] [facility] - [facility] 5 12:46:24 Social History None recorded. Functional Status None [...] ICD10 Code Diagnosis IMO Codes Diagnosis Note [id number] Manfred Shelton MD Main Office [address] [place] [address] 06/10/2025 10:19:13 06/10/2025 13:21:20 [id number] Manfred Shelton MD Main Office [address] [place] [address] 06/11/2025 10:35:04 06/11/2025 14:11:07 [id number] Manfred Shelton MD Main Office [address] [place] [address] 06/12/2025 10:59:45 06/12/2025 14:56:49 [id number] Manfred Shelton MD Main Office [address] [place] [address] 06/15/2025 10:50:33 06/15/2025 13:14:21 [id number] Manfred Shelton MD Main Office [address] [place] [address] 06/16/2025 10:14:56 06/16/2025 13:52:36 [id number] Manfred Shelton MD Main Office [address] [place] [address] 06/17/2025 10:28:52 06/17/2025 13:18:56 [id number] Manfred Shelton MD Main Office [address] [place] [address] 06/18/2025 10:16:09 06/18/2025 13:16:04 [id number] Manfred Shelton MD Main Office [address] [place] [address] 06/19/2025 10:44:19 06/19/2025 14:15:39 [id number] COLEMAN LAU NP Main Office [address] [place] [address] 06/22/2025 10:36:06 06/22/2025 14:32:28 [id number] Manfred Shelton MD Main Office [address] [place] [address] 06/23/2025 10:18:15 06/23/2025 14:03:00 [id number] Manfred Shelton MD Main Office [address] [place] [address] 06/24/2025 10:23:16 06/24/2025 13:37:08 [id number] Manfred Shelton MD Main Office [address] [place] [address] 06/25/2025 10:19:36 06/25/2025 14:27:35 [id number] Manfred Shelton MD Main Office [address] [place] [address] 06/26/2025 10:52:38 06/26/2025 16:27:47 [id number] Manfred Shelton MD Main Office [address] [place] [address] 06/29/2025 10:44:14 06/29/2025 13:39:12 [id number] Manfred Shelton MD Main Office [address] [place] [address] 06/30/2025 10:42:21 06/30/2025 13:46:39 [id number] Manfred Shelton MD Main Office [address] [place] [address] 07/01/2025 10:49:18 07/01/2025 13:25:24 [id number] Manfred Shelton MD Main Office [address] [place] [address] 07/02/2025 10:15:06 07/03/2025 07:21:23 [id number] Manfred Shelton MD Main Office [address] [place] [address] 07/03/2025 10:50:33 07/03/2025 17:53:35 [id number] Manfred Shelton MD Main Office [address] [place] [address] 07/06/2025 10:54:52 07/06/2025 14:37:01 [id number] Manfred Shelton MD Main Office [address] [place] [address] 07/07/2025 10:14:11 07/08/2025 08:12:24 [id number] Manfred Shelton MD Main Office [address] [place] [address] 07/08/2025 10:22:23 07/08/2025 19:57:51 [id number] Manfred Shelton MD Main Office [address] [place] [address] 07/09/2025 10:23:51 07/09/2025 16:04:46 Health Concerns Section Related Observation LastModified by Organization Detai ls LastModified Time None Recorded Concern Status LastModified by Organization Details LastModified Time None Recorded Payers Encounter Date Sequence Insurance Name Policy Number Policy Gonzales Covered Member ID Gonzales Member ID Guarantor Name 07/09/2025 2 [employer] Seema Delacruz [id number] Seema Delacruz 07/09/2025 1 [employer] Seema Delacruz [id number] Seema Delacruz OBGyn Episode No OBEpisode recorded.
--- OUTSIDE RECORDS SUMMARY | 2025-09-16 16:32 | XMS_ITS | Continuity of Care Document ---
Author Organization [place] [facility], Main Office Address [address] [place] [address] Care Team Providers Care Ophthalmic Aide Name Role Phone STEPHY YUSUF Primary Care [...] available Not available Hyperb ujlio Therap y-120 2025 10:30A M [facility] Not available Not available Not available Lab None record ed. Referral None record ed. Procedures None record ed. Surgeries None record ed. Imaging None record ed. Medication Orders None record ed. Patient TargetsNo targets recorded. Patient Instructions Encounter Date Encounter Id Patient Instructions Last Modified By Organization Details Last Modified Time 07/23/2025 [id number] BACKGROUND: Seema Delacruz is a 55 y.o. [...] Diagnosis: L97.512, E11.621 Session Notes: Today's Date 23Jul2025 HBOT session 56 of 60 Next HBOT 24Jul2025 30Jul - Patient cleared for 1st HBOT [...] antibiotics for an upper respiratory infection. Nicolasa [employer] 07Aug- Patient cleared for HBOT today. VS stable. PAtient had little trouble reaching pressure today, but had to come out of chamber early due to needing to use restroom. She managed to do 4 segs-118 minutes. [place].Tanner [employer] 08Aug - Patient cleared for HBOT today. VS stable. Patient completed full session with no problem. Antoinette Lau [employer] 11Aug - Patient cleared for HBOT today. [...] full session with no problem. Antoinette Lau [employer] 13Aug - Patient cleared for HBOT today. VS stable. Patient completed full session with no problem. Wound care to follow treatment today. Antoinette Lau APRN 14Aug - Patient cleared for HBOT today. VS stable. Patient completed full session with no problem. Antoinette Lau [employer] 15Aug - Patient cleared for HBOT today. [...] attempt to try again on Sunday. Nicolasa [employer] 18Aug - Patient cleared for HBOT today. VS stable. Patient completed full session with no problem. Antoinette Lau [employer] 19Aug - Patient deemed safe for HBOT [...] anxiety. Dressing change today per nursing. [facility] 25Aug - Patient deemed safe for HBOT [...] andcompleted full session free of problem. [facility] 29Aug - Cleared for HBOT his date and completed full session free of problem. Of note, this patient continues to smoke tobacco cigarettes. [facility] 02Sep - Patient deemed safe for HBOT [...] 80 and was discharged with 92. [facility] 08Sep - Patient deemed safe for HBOT today. VS stable. Patient completed full session with no problem. [place].Jessica Lau APRN 10Sep - Patient deemed safe for HBOT today. VS stable. Patient completed full session with no problem. Antoinette Lau APRN 11Sep - Patient cleared for HBOT today. VS stable. Patient completed full session with no problem. [place].Jessica Lau [employer] 12Sep - Found safe for HBOT this date. Completed curtailed session free of problem. Session shortened to satisfy demand of ride provider. [facility] 15Sep - Patient cleared for HBOT today. [...] full session with no problem. IsraelIlsa Lau [employer] 26Sep - Deemed safe for HBOT on this date and completed the full session uneventfully. [facility] 29Sep - Patient cleared for HBOT today. VS stable. Patient completed 3 Seg session with no problem. M.ADeepali Lau [employer] 30Sep - Patient cleared for HBOT today. VS stable. Patient completed full session with no problem. M.Jessica Lau [employer] 01Oct - Patient cleared for HBOT today. VS stable. Patient completed full session with no problem. M.Jessica Lau [employer] 02Oct - Cleared for HBOT this date and completed full session free of problem. [facility] 03Oct - Deemed safe for HBOT today and completed her full session without problem. [facility] 06Oct - Found safe for HBOT this date and tolerated her session free of problem. [facility] 07Oct- Cleared for HBOT this date and completed the full session without problem. [facility] 08Oct - Glu on arrival marginal so given caloric intake first and then cleared for HBOT this day. Had no problem completing full session emerging at Glu 139. [facility] 09Oct - Deemed safe for HBOT today and completed full session without problem. [facility] 14Oct - Patient returns after being out ill. Cleared for HBOT today. VS stable. Patient completed full session with no problem. [place].Jessica Lau [employer] 15Oct - Patient cleared for HBOT today. VS stable. Patient completed full session with no problem. M.Jessica Lau [employer] 16Oct - Patient cleared for HBOT today. VS stable. Patient completed full session with no problem. M.Jessica Lau [employer] 17Oct - Patient cleared for HBOT today. VS stable. Patient completed full session with no problem. [place].Jessica Lau [employer] 20Oct - Patient an hour late today due to transportation company. She can only do an hour, or she will not have a ride back home. Cleared for HBOT, VS stable. Finished 1 hour session with no issues or complaints. M.Tanner [employer] 21Oct - Patient cleared for HBOT today. VS stable. Patient completed full session with no problem. M.ADeepali Lau [employer] 22Oct - Patient cleared for HBOT today. VS stable. Patient completed full session with no problem. M.Jessica Lau [employer] 23Oct - Patient cleared for HBOT today. VS stable. Patient completed full session with no problem. Antoinette Sotowood [employer] Not available 07/23/2025 15:03:05 Reason for Referral None Reported. Results Created [...] Organization Details Recorded Time Upper respiratory infection [id number] Active 2024 COLEMAN LAU NP null, [place] - [facility] 12:18:40 Episodic migraine [id number] 06 Active 2024 COLEMAN LAU NP null, [place] [facility] 12:34:01 Type 2 diabetes mellitus [id number] Active 2024 COLEMAN LAU NP null, [place] [facility] 15:27:12 Refractory migraine with aura 338672517 Active 2024 COLEMAN LAU NP null, [place] [facility] 10:56:52 Recurrent acute frontal sinusitis Active 2024 COLEMAN LAU NP null, [place] [facility] 12:47:05 Candidiasis of vagina 37289489 Active 2024 COLEMAN LAU NP null, [place] [facility] 12:47:26 Acute upper respiratory infection 27389208 Active 2024 COLEMAN LAU NP null, [place] [...] Carolyn roland [place] - [facility] 09/07/2025 12:38:58 08/31/20 25 [facility] Therapy Treatment Form completed [facility] - [facility] 08/31/2025 12:48:46 08/25/20 25 [facility] Therapy Treatment Form completed Carolyn roland [place] - [facility] 08/25/2025 12:52:26 08/24/20 25 [facility] Therapy Treatment Form completed Carolyn luan [place] - [facility] 08/24/2025 12:53:43 08/17/20 25 [facility] Therapy Treatment Form completed Carolyn luan [place] - [facility] 08/17/2025 13:02:48 08/14/20 25 [facility] Therapy Treatment Form completed Lisadipesh Sosa [place] - [facility] 08/14/2025 12:43:08 08/13/20 25 [facility] Therapy Treatment Form completed Carolyn roland [place] - [facility] 08/13/2025 12:27:58 08/12/20 25 [facility] Therapy Treatment Form completed Carolyn luan [place] - [facility] 08/12/2025 12:36:02 08/12/20 25 Wound completed COLEMAN LAU NP [place] - [facility] 08/12/2025 14:15:15 08/11/20 25 [facility] Therapy Treatment Form completed [facility] - [facility] 08/11/2025 12:58:18 08/10/20 25 [facility] Therapy Treatment Form completed Carolyn roland [place] - [facility] 08/10/2025 12:57:23 08/04/20 25 [facility] Therapy Treatment Form completed COLEMAN LAU NP [place] - [facility] 08/04/2025 13:51:50 08/03/20 25 [facility] Therapy Treatment Form completed ABDOULAYE HAQ - [facility] 08/03/2025 14:17:35 07/30/20 25 [facility] Therapy Treatment Form completed Carolyn luan [place] - [facility] 07/30/2025 12:38:27 07/29/20 25 [facility] Therapy Treatment Form completed Carolyn roland [place] - [facility] 07/29/2025 12:40:06 07/28/20 [...] Care Therapy Treatment Form completed [facility] - [facility] 07/23/2025 12:41:49 07/22/20 [facility] Therapy Treatment Form completed [facility] - [facility] 07/22/2025 12:53:32 07/21/20 [facility] Therapy Treatment Form completed [facility] - [facility] 07/21/2025 12:43:55 07/20/20 [facility] Therapy Treatment Form completed [facility] - [facility] 07/20/2025 12:58:21 [...] Care Therapy Treatment Form completed [facility] - [facility] 07/15/2025 12:39:29 07/14/20 25 [facility] Therapy Treatment Form completed COLEMAN LAU NP [place] [facility] 07/14/2025 15:14:39 07/09/20 25 [facility] Therapy Treatment Form completed [facility] - [facility] 07/09/2025 12:46:05 07/08/20 25 [facility] Therapy Treatment Form completed [facility] - [facility] 07/08/2025 12:41:28 07/07/20 25 [facility] Therapy Treatment Form completed Manfred Shelton MD [place] - [facility] 07/08/2025 08:10:21 07/06/20 25 [facility] Therapy Treatment Form completed [facility] - [facility] 07/06/2025 13:06:29 [...] Care Therapy Treatment Form completed [facility] - [facility] 06/25/2025 12:47:07 06/24/20 25 [facility] Therapy Treatment Form completed [facility] - [facility] 06/24/2025 12:40:20 06/23/20 25 [facility] Therapy Treatment Form completed [facility] - [facility] 06/23/2025 12:39:50 06/22/20 25 [facility] Therapy Treatment Form completed [facility] - [facility] 06/22/2025 12:49:55 06/19/20 25 [facility] Therapy Treatment Form completed MD DOLORES [place] - [facility] 06/19/2025 14:13:24 06/18/20 25 [facility] Therapy Treatment Form completed COLEMAN LAU NP [place] - [facility] 06/18/2025 13:17:34 06/17/20 25 [facility] Therapy Treatment Form completed [facility] - [facility] 06/17/2025 12:29:15 06/16/20 25 [facility] Therapy Treatment Form completed [facility] - [facility] 06/16/2025 12:45:53 06/15/20 25 [facility] Therapy Treatment Form completed [facility] - [facility] 06/15/2025 12:47:07 06/12/20 25 [facility] Therapy Treatment Form completed Manfred Shelton MD [place] - [facility] 06/12/2025 14:54:52 06/11/20 25 [facility] Therapy Treatment Form completed [facility] - [facility] 06/11/2025 13:02:39 06/10/20 25 [facility] Therapy Treatment Form completed [facility] - [facility] 06/10/2025 12:50:18 06/08/20 25 [facility] Therapy Treatment Form completed [facility] - [facility] 06/08/2025 12:56:07 [...] Care Therapy Treatment Form completed Evelia Winters [place] - [facility] 06/03/2025 14:11:11 06/02/20 25 [facility] Therapy Treatment Form completed [facility] - [facility] 06/02/2025 13:09:37 05/29/20 25 [facility] Therapy Treatment Form completed [facility] - [facility] 05/29/2025 12:25:31 05/28/20 25 [facility] Therapy Treatment Form completed [facility] - [facility] 05/28/2025 13:02:44 05/27/20 25 Wound completed COLEMAN LAU NP [place] - [facility] 05/27/2025 13:18:22 05/27/20 25 [facility] Therapy Treatment Form completed [facility] - [facility] 05/27/2025 12:50:01 05/26/20 25 Nurse Note completed Luciana Noriega [place] [facility] 05/26/2025 16:40:42 05/26/20 25 [facility] Therapy Treatment Form completed [facility] - [facility] 05/26/2025 12:27:56 05/25/20 25 [facility] Therapy Treatment Form completed [facility] - [facility] 05/25/2025 13:12:32 [...] Mary Ruben [place] - [facility] 05/08/2025 [...] Not available Not available Not available 04/23/2025 79691 3 RxNorm Luciana servin, DOLORES - [facility] 14:25:27 1104 Avelox medicatio n Not available Not available Not available 04/23/2025 55569 6 RxNorm Luciana servin, DOLOR[place] - [facility] 5 14:25:52 1105 metformin medicatio n other Not available low 04/23/20252023 6809 RxNorm GI issue s Luciana servin, DOLORES - [facility] 14:26:11 1253 Product containin g angiotens in-conver ting enzyme inhibitor (product) medicatio n cough moderate Not available 06/26/2025 32766 009 SNOMED Not Available taisha - [employer] - prod 5 10:54:20 1254 metformin hydrochlo ride medicatio n Not available Not available Not available 06/26/2025 10936 3 RxNorm Not Available [employer] - prod 5 10:54:20 1358 ceftriaxo ne medicatio n rash moderate Not available 07/15/2025 2193 RxNorm Not Available [employer] - prod 5 10:18:57 1359 droperido l medicatio n dyspnea Not available Not available 07/15/2025 3648 RxNorm Not Available [employer] - prod 5 10:18:57 1360 moxifloxa beck medicatio n rash moderate Not available 07/15/2025 99806 2 RxNorm Not Available [employer] - prod 5 10:18:57 1461 moxifloxa beck hydrochlo ride medicatio n Not available Not available Not available 08/24/20252015 06049 0 RxNorm Not Available [employer] - prod 5 04:35:37 Medications [...] Address Organization Details Last Updated DateTime 5 90 /min 16 /min 98.4 [degF] 95 % 75 /min 16 /min 97.9 [degF] 90 % 153/75 mm[Hg] 142/78 mm[Hg] [facility] - [facility] 5 12:42:08 Social History None recorded. Functional Status None [...] ICD10 Code Diagnosis IMO Codes Diagnosis Note [id number] Manfred Shelton MD Main Office [address] [address] [place] [address] 06/23/2025 10:18:15 06/23/2025 14:03:00 [id number] Manfred Shelton MD Main Office [address] [place] [address] 06/24/2025 10:23:16 06/24/2025 13:37:08 [id number] Manfred Shelton MD Main Office [address] [place] [address] 06/25/2025 10:19:36 06/25/2025 14:27:35 [id number] Manfred Shelton MD Main Office [address] [place] [address] 06/26/2025 10:52:38 06/26/2025 16:27:47 [id number] Manfred Shelton MD Main Office [address] [place] [address] 06/29/2025 10:44:14 06/29/2025 13:39:12 [id number] Manfred Shelton MD Main Office [address] [place] [address] 06/30/2025 10:42:21 06/30/2025 13:46:39 [id number] Manfred Shelton MD Main Office [address] [place] [address] 07/01/2025 10:49:18 07/01/2025 13:25:24 [id number] Manfred Shelton MD Main Office [address] [place] [address] 07/02/2025 10:15:06 07/03/2025 07:21:23 [id number] Manfred Shelton MD Main Office [address] [place] [address] 07/03/2025 10:50:33 07/03/2025 17:53:35 [id number] Manfred Shelton MD Main Office [address] [place] [address] 07/06/2025 10:54:52 07/06/2025 14:37:01 [id number] Manfred Shelton MD Main Office [address] [place] [address] 07/07/2025 10:14:11 07/08/2025 08:12:24 [id number] Manfred Shelton MD Main Office [address] [place] [address] 07/08/2025 10:22:23 07/08/2025 19:57:51 [id number] Manfred Shelton MD Main Office [address] [place] [address] 07/09/2025 10:23:51 07/09/2025 16:04:46 [id number] Manfred Shelton MD Main Office [address] [place] [address] 07/14/2025 10:06:05 07/14/2025 15:15:47 [id number] Manfred Shelton MD Main Office [address] [place] [address] 07/15/2025 10:17:40 07/15/2025 13:26:46 [id number] Manfred Shelton MD Main Office [address] [place] [address] 07/15/2025 14:45:53 07/15/2025 14:48:12 [id number] Manfred Shelton MD Main Office [address] [place] [address] 07/16/2025 10:18:19 07/16/2025 14:20:47 [id number] Manfred Shelton MD Main Office [address] [place] [address] 07/17/2025 10:06:47 07/17/2025 14:10:36 Refractory migraine with aura [id number] G43.515 [id number] Manfred Shelton MD Main Office [address] [place] [address] 07/20/2025 11:09:11 07/20/2025 14:45:37 [id number] Manfred Shelton MD Main Office [address] [place] [address] 07/21/2025 10:11:12 07/21/2025 12:49:36 [id number] Manfred Shelton MD Main Office [address] [place] [address] 07/22/2025 10:10:07 07/22/2025 13:11:46 [id number] Manfred Shelton MD Main Office [address] [place] [address] 07/23/2025 10:48:45 07/23/2025 15:03:21 Health Concerns Section Related Observation LastModified by Organization Detai ls LastModified Time None Recorded Concern Status LastModified by Organization Details LastModified Time None Recorded Payers Encounter Date Sequence Insurance Name Policy Number Policy Gonzales Covered Member ID Gonzales Member ID Guarantor Name 07/23/2025 2 [employer] Seema Delacruz [id number] Seema Delacruz 07/23/2025 1 [employer] Seema Delacruz [id number] Seema Delacruz OBGyn Episode No OBEpisode recorded.
--- OUTSIDE RECORDS SUMMARY | 2025-09-16 16:32 | XMS_ITS | Continuity of Care Document ---
Author Organization [place] [facility], Main Office Address [address] [place] [address] Care Team Providers Care Maintenance Of Way Supervisor Name Role Phone YUSUF KEYES Primary Care Provider [phone] Assessment Encounter Date Assessment Date Assessment LastModified by Organization Details LastModified Time 07/15/2025 07/15/2025 Seema Delacruz is a 55 y.o. female [...] into Lymphedemia pumps for her. Not available 07/15/2025 14:46:43 Plan of Treatment Reminders Order Date Submit [...] Modified By Organization Details Last Modified Time 07/15/2025 5686 Cleanse wound with NS and gauze. Place silver Alginate to wound, cover with gauze, ABD pad, kerlix, and secure with joan wrap. Change 3 times weekly. Not available 07/15/2025 14:46:44 05/06/2025 - No sharp Debridement today in [...] and an joan wrap to secure. M.Monica.Judi [employer] 05/13/2025 - No sharp Debridement today in clinic. We are assisting Dr. Ortiz with the patients wound care. Wound cleansed with NS and gauze, applied silver Alginate, gauze, abd pad, Kerlix, and an joan wrap to secure. M.Monica.Judi [employer] 05/20/2025 - No sharp Debridement today in clinic. We are assisting Dr. Ortiz with the patients wound care. Wound cleansed with NS and gauze, applied Collagen with silver, gauze, abd pad, Kerlix, and an joan wrap to secure. M.MonicaDeepaliJudi [employer]ER 05/27/2025 - No sharp Debridement today in clinic. We are assisting Dr. Ortiz with the patients wound care. Wound cleansed with NS and gauze, applied silver Alginate, gauze, abd pad, Kerlix, and an joan wrap to secure. M.Monica.[place] [employer]ER 06/04/2025 - No sharp Debridement today in clinic. We are assisting Dr. Ortiz with the patients wound care. Wound cleansed with NS and gauze, applied silver Alginate, gauze, abd pad, Kerlix, and an joan wrap to secure. [place].MonicaDeepaliJudi [employer] OFF[employer]ER 07/15/2025 - No sharp Debridement today in clinic. We are assisting Dr. Ortiz with the patients wound care. Wound cleansed with NS and gauze, applied silver Alginate, gauze, abd pad, Kerlix, and an joan wrap to secure. M.Monica.Judi [employer]ER Not available 07/15/2025 14:48:02 Reason for Referral None Reported. Problems Name Problem SNOMED Code Status Onset Date Resolution Date Notes Provider Name and Address Organization Details Recorded Time Upper respiratory infection 56668476 Active 2024 COLEMAN MARTELL NP null, [place] - [facility] 12:18:40 Episodic migraine 1457915601994 06 Active 2024 COLEMAN MARTELL NP null, [place] - [facility] 12:34:01 Type 2 diabetes mellitus 68749804 Active 2024 COLEMAN MARTELL NP null, [place] [facility] 15:27:12 Refractory migraine with aura 274422739 Active 2024 COLEMAN MARTELL NP null, [place] [facility] 10:56:52 Recurrent acute frontal sinusitis Active 2024 COLEMAN MARTELL NP null, [place] [facility] 12:47:05 Candidiasis of vagina 87559808 Active 2024 COLEMAN MARTELL NP null, [place] - [facility] 12:47:26 Acute upper respiratory infection 89342871 Active 2024 COLEMAN MARTELL NP null, [place] - [facility] 12:32:57 Problem Notes None recorded. Procedures Surgical History Date Name Laterality Status Provider Name and Address Organization Details Recorded Time 09/15/20 [facility] Therapy Treatment Form completed [facility] - [facility] 09/15/2025 12:48:40 09/14/20 25 [facility] Therapy Treatment Form completed COLEMAN MARTELL NP [place] - [facility] 09/14/2025 14:54:43 09/07/20 25 [facility] Therapy Treatment Form completed [facility] - [facility] 09/07/2025 12:38:58 08/31/20 25 [facility] Therapy Treatment Form completed [facility] - [facility] 08/31/2025 12:48:46 08/25/20 25 [facility] Therapy Treatment Form completed [facility] - [facility] 08/25/2025 12:52:26 08/24/20 25 [facility] Therapy Treatment Form completed [facility] - [facility] 08/24/2025 12:53:43 08/17/20 25 [facility] Therapy Treatment Form completed [facility] - [facility] 08/17/2025 13:02:48 08/14/20 25 [facility] Therapy Treatment Form completed Lisa Sosa [place] - [facility] 08/14/2025 12:43:08 08/13/20 25 [facility] Therapy Treatment Form completed [facility] - [facility] 08/13/2025 12:27:58 08/12/20 25 [facility] Therapy Treatment Form completed Carolyn luan [place] - [facility] 08/12/2025 12:36:02 08/12/20 25 Wound completed COLEMAN MARTELL NP [place] - [facility] 08/12/2025 14:15:15 08/11/20 25 [facility] Therapy Treatment Form completed [facility] - [facility] 08/11/2025 12:58:18 08/10/20 25 [facility] Therapy Treatment Form completed [facility] - [facility] 08/10/2025 12:57:23 08/04/20 25 [facility] Therapy Treatment Form completed COLEMAN MARTELL NP [place] [facility] 08/04/2025 13:51:50 08/03/20 25 [facility] Therapy Treatment Form completed COLEMAN MARTELL NP [place] [facility] 08/03/2025 14:17:35 07/30/20 25 [facility] Therapy Treatment Form completed [facility] - [facility] 07/30/2025 12:38:27 07/29/20 25 [facility] Therapy Treatment Form completed [facility] - [facility] 07/29/2025 12:40:06 07/28/20 [...] [facility] Therapy Treatment Form completed [facility] - [facility] 07/23/2025 12:41:49 07/22/20 25 [facility] Therapy Treatment Form completed [facility] - [facility] 07/22/2025 12:53:32 07/21/20 25 [facility] Therapy Treatment Form completed [facility] - [facility] 07/21/2025 12:43:55 07/20/20 25 [facility] Therapy Treatment Form completed [facility] - [facility] 07/20/2025 12:58:21 07/17/20 [...] Carolyn roland [place] - [facility] 07/09/2025 12:46:05 07/08/20 25 [facility] Therapy Treatment Form completed Carolyn roland [place] - [facility] 07/08/2025 12:41:28 07/07/20 [...] [facility] Therapy Treatment Form completed [facility] - [facility] 06/24/2025 12:40:20 06/23/20 25 [facility] Therapy Treatment Form completed [facility] - [facility] 06/23/2025 12:39:50 06/22/20 25 [facility] Therapy Treatment Form completed [facility] - [facility] 06/22/2025 12:49:55 06/19/20 25 [facility] Therapy Treatment Form completed Manfred Shelton MD [place] - [facility] 06/19/2025 14:13:24 06/18/20 25 [facility] Therapy Treatment Form completed COLEMAN MARTELL NP [place] [facility] 06/18/2025 13:17:34 06/17/20 25 [facility] Therapy Treatment Form completed [facility] - [facility] 06/17/2025 12:29:15 06/16/20 25 [facility] Therapy Treatment Form completed [facility] - [facility] 06/16/2025 12:45:53 06/15/20 25 [facility] Therapy Treatment Form completed [facility] - [facility] 06/15/2025 12:47:07 06/12/20 25 [facility] Therapy Treatment Form completed Manfred Shelton MD [place] - [facility] 06/12/2025 14:54:52 06/11/20 25 [facility] Therapy Treatment Form completed [facility] - [facility] 06/11/2025 13:02:39 06/10/20 25 [facility] Therapy Treatment Form completed [facility] - [facility] 06/10/2025 12:50:18 06/08/20 25 [facility] Therapy Treatment Form completed [facility] - [facility] 06/08/2025 12:56:07 06/05/20 [...] Carolyn roland [place] - [facility] 05/29/2025 12:25:31 05/28/20 25 [facility] Therapy Treatment Form completed Carolyn roland [place] - [facility] 05/28/2025 13:02:44 05/27/20 25 Wound completed COLEMAN MARTELL NP [place] [facility] 05/27/2025 13:18:22 05/27/20 25 [facility] Therapy Treatment Form completed Carolyn roland [place] - [facility] 05/27/2025 12:50:01 05/26/20 [...] Not available Not available Not available 04/23/2025 78884 3 RxNorm Luciana servin, [place] - [facility] 14:25:27 1104 Avelox medicatio n Not available Not available Not available 04/23/2025 78617 6 RxNorm Luciana servin [place] - [facility] 14:25:52 1105 metformin medicatio n other Not available low 04/23/20252023 6809 RxNorm GI issue s Luciana servin [place] - [facility] 14:26:11 1253 Product containin g angiotens in-conver ting enzyme inhibitor (product) medicatio n cough moderate Not available 06/26/2025 13406 009 SNOMED Not Available taisha - [employer] - prod 5 10:54:20 1254 metformin hydrochlo ride medicatio n Not available Not available Not available 06/26/2025 67251 3 RxNorm Not Available taisha - [employer] - prod 5 10:54:20 1358 ceftriaxo ne medicatio n rash moderate Not available 07/15/2025 2193 RxNorm Not Available taisha - [employer] - [facility] 10:18:57 1359 droperido l medicatio n dyspnea Not available Not available 07/15/2025 3648 RxNorm Not Available [employer] - [place] 10:18:57 1360 moxifloxa beck medicatio n rash moderate Not available 07/15/2025 76695 2 RxNorm Not Available [employer] [facility] - [place] 10:18:57 1461 moxifloxa beck hydrochlo ride medicatio n Not available Not available Not available 08/24/20252015 24313 0 RxNorm Not Available [employer] [facility] - [place] 04:35:37 Medications Name Sig Start Date Stop [...] Updated DateTime 5 87 /min 16 /min 98.4 [degF] 88 % 90 /min 16 /min 97.9 [degF] 88 % 154/70 mm[Hg] 136/70 mm[Hg] Carolyn [facility] [place] - [facility] 5 12:39:45 Social History None recorded. Functional Status None [...] ICD10 Code Diagnosis IMO Codes Diagnosis Note [id number] Manfred Shelton MD Main Office [address] [place] [address] 06/15/2025 10:50:33 06/15/2025 13:14:21 [id number] Manfred Shelton MD Main Office [address] [place] [address] 06/16/2025 10:14:56 06/16/2025 13:52:36 [id number] Manfred Shelton MD Main Office [address] [place] [address] 06/17/2025 10:28:52 06/17/2025 13:18:56 [id number] Manfred Shelton MD Main Office [address] [place] [address] 06/18/2025 10:16:09 06/18/2025 13:16:04 [id number] Manfred Shelton MD Main Office [address] [place] [address] 06/19/2025 10:44:19 06/19/2025 14:15:39 [id number] COLEMAN MARTELL NP Main Office [address] [place] [address] 06/22/2025 10:36:06 06/22/2025 14:32:28 [id number] Manfred Shelton MD Main Office [address] [place] [address] 06/23/2025 10:18:15 06/23/2025 14:03:00 [id number] Manfred Shelton MD Main Office [address] [place] [address] 06/24/2025 10:23:16 06/24/2025 13:37:08 [id number] Manfred Shelton MD Main Office [address] [place] [address] 06/25/2025 10:19:36 06/25/2025 14:27:35 [id number] Manfred Shelton MD Main Office [address] [place] [address] 06/26/2025 10:52:38 06/26/2025 16:27:47 [id number] Manfred Shelton MD Main Office [address] [place] [address] 06/29/2025 10:44:14 06/29/2025 13:39:12 [id number] Manfred Shelton MD Main Office [address] [place] [address] 06/30/2025 10:42:21 06/30/2025 13:46:39 [id number] Manfred Shelton MD Main Office [address] [place] [address] 07/01/2025 10:49:18 07/01/2025 13:25:24 [id number] Manfred Shelton MD Main Office [address] [place] [address] 07/02/2025 10:15:06 07/03/2025 07:21:23 [id number] Manfred Shelton MD Main Office [address] [place] [address] 07/03/2025 10:50:33 07/03/2025 17:53:35 [id number] Manfred Shelton MD Main Office [address] [place] [address] 07/06/2025 10:54:52 07/06/2025 14:37:01 [id number] Manfred Shelton MD Main Office [address] [place] [address] 07/07/2025 10:14:11 07/08/2025 08:12:24 [id number] Manfred Shelton MD Main Office [address] [place] [address] 07/08/2025 10:22:23 07/08/2025 19:57:51 [id number] Manfred Shelton MD Main Office [address] [place] [address] 07/09/2025 10:23:51 07/09/2025 16:04:46 [id number] Manfred Shelton MD Main Office [address] [place] [address] 07/14/2025 10:06:05 07/14/2025 15:15:47 [id number] Manfred Shelton MD Main Office [address] [place] [address] 07/15/2025 10:17:40 07/15/2025 13:26:46 [id number] Manfred Shelton MD Main Office [address] [place] [address] 07/15/2025 14:45:53 07/15/2025 14:48:12 Health Concerns Section Related Observation LastModified by Organization Detai ls LastModified Time None Recorded Concern Status LastModified by Organization Details LastModified Time None Recorded Payers Encounter Date Sequence Insurance Name Policy Number Policy Gonzales Covered Member ID Gonzales Member ID Guarantor Name 07/15/2025 2 [facility] Seema Jayme [id number] Seema Delacruz 07/15/2025 1 SAVANNA Delacruz [id number] Seema Delacruz Notes Date Note Type Note [...] NP null, [place] - [facility] 07/15/2025 14:48:11 OBGyn Episode No OBEpisode recorded.
--- OUTSIDE RECORDS SUMMARY | 2025-09-16 16:32 | XMS_ITS | Continuity of Care Document ---
Author Organization [place] [facility], Main Office Address [address] [place] [address] Care Team Providers Care Respiratory Physician Name Role Phone STEPHY YUSUF Primary Care [...] By Organization Details Last Modified Time 07/06/2025 6830 BACKGROUND: Seema Delacruz is a 55 y.o. [...] antibiotics for an upper respiratory infection. Nicolasa MAILING MACHINE OPERATOR 07Aug- Patient cleared for HBOT today. VS stable. PAtient had little trouble reaching pressure today, but had to come out of chamber early due to needing to use restroom. She managed to do 4 segs-118 minutes. [place].Tanner MAILING MACHINE OPERATOR 08Aug - Patient cleared for HBOT today. VS stable. Patient completed full session with no problem. Antoinette Lau MAILING MACHINE OPERATOR 11Aug - Patient cleared for [...] full session with no problem. Antoinette Lau MAILING MACHINE OPERATOR 13Aug - Patient cleared for HBOT today. VS stable. Patient completed full session with no problem. Wound care to follow treatment today. Antoinette Lau APRN 14Aug - Patient cleared for HBOT today. VS stable. Patient completed full session with no problem. Antoinette Lau MAILING MACHINE OPERATOR 15Aug - Patient cleared for [...] attempt to try again on Sunday. Nicolasa MAILING MACHINE OPERATOR 18Aug - Patient cleared for HBOT today. VS stable. Patient completed full session with no problem. Antoinette Lau MAILING MACHINE OPERATOR 19Aug - Patient deemed safe [...] significant anxiety. Dressing change today per nursing. [facility] [place] - Patient deemed safe for HBOT [...] date andcompleted full session free of problem. [facility] 29Aug - Cleared for HBOT his date and completed full session free of problem. Of note, this patient continues to smoke tobacco cigarettes. [facility] 02Sep - Patient deemed safe for HBOT [...] above 80 and was discharged with 92. [facility] 08Sep - Patient deemed safe for HBOT today. VS stable. Patient completed full session with no problem. [place].Jessica Lau APRN 10Sep - Patient deemed safe for HBOT today. VS stable. Patient completed full session with no problem. Antoinette Lau APRN 11Sep - Patient cleared for HBOT today. VS stable. Patient completed full session with no problem. [place].Jessica Lau MAILING MACHINE OPERATOR 12Sep - Found safe for HBOT this date. Completed curtailed session free of problem. Session shortened to satisfy demand of ride provider. [facility] 15Sep - Patient cleared for HBOT today. [...] completed full session with no problem. [place].Jessica SotoSupai MAILING MACHINE OPERATOR 26Sep - Deemed safe for HBOT on this date and completed the full session uneventfully. Estefania WATERS 29Sep - Patient cleared for HBOT today. VS stable. Patient completed 3 Seg session with no problem. [place].Jessica SotoJudi MAILING MACHINE OPERATOR 30Sep - Patient cleared for HBOT today. VS stable. Patient completed full session with no problem. Antoinette Lau MAILING MACHINE OPERATOR 01Oct - Patient cleared for HBOT today. VS stable. Patient completed full session with no problem. [place].Jessica aLu MAILING MACHINE OPERATOR 02Oct - Cleared for HBOT this date and completed full session free of problem. Estefania WATERS 03Oct - Deemed safe for HBOT today and completed her full session without problem. [facility] 06Oct - Found safe for HBOT this date and tolerated her session free of problem. [facility] [email or web address] Not available 07/06/2025 14:36:54 Reason for Referral None Reported. Problems Name Problem SNOMED Code Status Onset Date Resolution Date Notes Provider Name and Address Organization Details Recorded Time Upper respiratory infection 57795250 Active 2024 COLEMAN LAU NP null, [place] [facility] 12:18:40 Episodic migraine 9026716175985 Active 2024 COLEMAN LAU NP null, [place] [facility] 12:34:01 Type 2 diabetes mellitus 07788878 Active 2024 COLEMAN LAU NP null, [place] [facility] 15:27:12 Refractory migraine with aura 797116810 Active 2024 COLEMAN LAU NP null, [place] [facility] 10:56:52 Recurrent acute frontal sinusitis Active 2024 COLEMAN LAU NP null, [place] [facility] 12:47:05 Candidiasis of vagina 95342247 Active 2024 COLEMAN LAU NP null, [place] [facility] 12:47:26 Acute upper respiratory infection 75188371 Active 2024 COLEMAN LAU NP null, [place] [facility] 12:32:57 Problem Notes None recorded. Procedures Surgical History Date Name Laterality Status Provider Name and Address Organization Details Recorded Time 09/15/20 25 [facility] Therapy Treatment Form completed [facility] - [facility] 09/15/2025 12:48:40 09/14/20 25 [facility] Therapy Treatment Form completed COLEMAN LAU NP [place] - [facility] 09/14/2025 14:54:43 09/07/20 25 [facility] Therapy Treatment Form completed [facility] - [facility] 09/07/2025 12:38:58 08/31/20 25 [facility] Therapy Treatment Form completed [facility] - [facility] 08/31/2025 12:48:46 08/25/20 25 [facility] Therapy Treatment Form completed [facility] - [facility] 08/25/2025 12:52:26 08/24/20 25 [facility] Therapy Treatment Form completed [facility] - [facility] 08/24/2025 12:53:43 08/17/20 25 [facility] Therapy Treatment Form completed [facility] - [facility] 08/17/2025 13:02:48 08/14/20 25 [facility] Therapy Treatment Form completed Lisadipesh Sosa [place] - [facility] 08/14/2025 12:43:08 08/13/20 25 [facility] Therapy Treatment Form completed [facility] - [facility] 08/13/2025 12:27:58 08/12/20 25 [facility] Therapy Treatment Form completed [facility] - [facility] 08/12/2025 12:36:02 08/12/20 25 Wound completed COLEMAN LAU NP [place] - [facility] 08/12/2025 14:15:15 08/11/20 25 [facility] Therapy Treatment Form completed [facility] - [facility] 08/11/2025 12:58:18 08/10/20 25 [facility] Therapy Treatment Form completed [facility] - [facility] 08/10/2025 12:57:23 08/04/20 25 [facility] Therapy Treatment Form completed COLEMAN LAU NP [place] [facility] 08/04/2025 13:51:50 08/03/20 25 [facility] Therapy Treatment Form completed COLEMAN LAU NP [place] [facility] 08/03/2025 14:17:35 07/30/20 [facility] Therapy Treatment Form completed [facility] [place] [facility] 07/30/2025 12:38:27 07/29/20 [facility] Therapy Treatment Form completed [facility] - [facility] 07/29/2025 12:40:06 07/28/20 [...] completed [facility] - [facility] 07/23/2025 12:41:49 07/22/20 [facility] Therapy Treatment Form completed [facility] - [facility] 07/22/2025 12:53:32 07/21/20 [facility] Therapy Treatment Form completed [facility] - [facility] 07/21/2025 12:43:55 07/20/20 [facility] Therapy Treatment Form completed [facility] - [facility] 07/20/2025 12:58:21 07/17/20 [...] completed [facility] - [facility] 07/15/2025 12:39:29 07/14/20 25 [facility] Therapy Treatment Form completed COLEMAN LAU NP [place] - [facility] 07/14/2025 15:14:39 07/09/20 25 [facility] Therapy Treatment Form completed [facility] - [facility] 07/09/2025 12:46:05 07/08/20 25 [facility] Therapy Treatment Form completed Carolyn sharp [place] - [facility] 07/08/2025 12:41:28 07/07/20 25 [facility] Therapy Treatment Form completed Manfred Shelton MD [place] - [facility] 07/08/2025 08:10:21 07/06/20 25 [facility] Therapy Treatment Form completed [facility] - [facility] 07/06/2025 13:06:29 07/03/20 25 [facility] Therapy Treatment Form completed Paula Licea [place] - [facility] 07/03/2025 12:47:29 07/02/20 25 [facility] Therapy Treatment Form completed Paula Licea [place] - [facility] 07/02/2025 13:06:39 07/01/20 [facility] Therapy Treatment Form completed Paula Licea [place] - [facility] 07/01/2025 13:05:37 06/30/20 25 [facility] Therapy Treatment Form completed COLEMAN LAU NP [place] [facility] 06/30/2025 13:46:12 06/29/20 25 [facility] Therapy Treatment Form completed [facility] - [facility] 06/29/2025 13:24:58 06/26/20 25 [facility] Therapy Treatment Form completed Manfred Shelton MD [place] - [facility] 06/26/2025 16:57:55 06/25/20 25 [facility] Therapy Treatment Form completed [facility] - [facility] 06/25/2025 12:47:07 06/24/20 25 [facility] Therapy Treatment Form completed [facility] - [facility] 06/24/2025 12:40:20 06/23/20 25 [facility] Therapy Treatment Form completed [facility] - [facility] 06/23/2025 12:39:50 06/22/20 25 [facility] Therapy Treatment Form completed [facility] - [facility] 06/22/2025 12:49:55 06/19/20 25 [facility] Therapy Treatment Form completed Manfred Shelton MD [place] - [facility] 06/19/2025 14:13:24 06/18/20 25 [facility] Therapy Treatment Form completed COLEMAN LAU NP [place] [facility] 06/18/2025 13:17:34 06/17/20 25 [facility] Therapy Treatment Form completed [facility] - [facility] 06/17/2025 12:29:15 06/16/20 25 [facility] Therapy Treatment Form completed [facility] - [facility] 06/16/2025 12:45:53 06/15/20 25 [facility] Therapy Treatment Form completed [facility] - [facility] 06/15/2025 12:47:07 06/12/20 25 [facility] Therapy Treatment Form completed Manfred Shelton MD [place] [facility] 06/12/2025 14:54:52 06/11/20 25 [facility] Therapy Treatment Form completed [facility] - [facility] 06/11/2025 13:02:39 06/10/20 25 [facility] Therapy Treatment Form completed [facility] 06/10/2025 12:50:18 06/08/20 25 [facility] Therapy Treatment Form completed [facility] 06/08/2025 12:56:07 06/05/20 25 [facility] Therapy Treatment Form completed Evelia Winters [place] - [facility] 06/05/2025 14:28:16 06/04/20 [...] completed [facility] - [facility] 06/02/2025 13:09:37 05/29/20 25 [facility] Therapy Treatment Form completed [facility] - [facility] 05/29/2025 12:25:31 05/28/20 25 [facility] Therapy Treatment Form completed [facility] 05/28/2025 13:02:44 05/27/20 25 Wound completed COLEMAN LAU NP [place] - [facility] 05/27/2025 13:18:22 05/27/20 25 [facility] Therapy Treatment Form completed [facility] - [facility] 05/27/2025 12:50:01 05/26/20 [...] Not available Not available Not available 04/23/2025 65822 3 RxNorm Luciana servin, [place] - [facility] 5 14:25:27 1104 Avelox medicatio n Not available Not available Not available 04/23/2025 68529 6 RxNorm Luciana servin, [place] - [facility] 5 14:25:52 1105 metformin medicatio n other Not available [facility] 04/23/20252023 6809 RxNorm GI issue s Luciana Noriega null, [place] - [facility] 5 14:26:11 1253 Product containin g angiotens in-conver ting enzyme inhibitor (product) medicatio n cough moderate Not available 06/26/2025 32522 009 SNOMED Not Available taisha - External Data Service - prod 5 10:54:20 1254 metformin hydrochlo ride medicatio n Not available Not available Not available 06/26/2025 67329 3 RxNorm Not Available taisha - External [...] medicatio n rash moderate Not available 07/15/2025 02995 2 RxNorm Not Available taisha - External Data Service - prod 5 10:18:57 1461 moxifloxa beck hydrochlo ride medicatio n Not available Not available Not available 08/24/20252015 66865 0 RxNorm Not Available taisha - External [...] /min 16 /min 99.1 [degF] 92 % 82 /min 16 /min 97.9 [degF] 97 % 142/79 mm[Hg] 118/71 mm[Hg] [facility] [place] [facility] 5 13:06:17 [...] Code Diagnosis IMO Codes Diagnosis Note [id number] Manferd Shelton MD Main Office [address] [place] [address] 06/08/2025 10:25:37 06/08/2025 14:39:12 [id number] Manfred Shelton MD Main Office [address] [place] [address] 06/10/2025 10:19:13 06/10/2025 13:21:20 [id number] Manfred Shelton MD Main Office [address] [place] [address] 06/11/2025 10:35:04 06/11/2025 14:11:07 [id number] Manfred Shelton MD Main Office [address] [place] [address] 06/12/2025 10:59:45 06/12/2025 14:56:49 [id number] Manfred Shelton MD Main Office [address] [place] [address] 06/15/2025 10:50:33 06/15/2025 13:14:21 [id number] Manfred Shelton MD Main Office [address] [place] [address] 06/16/2025 10:14:56 06/16/2025 13:52:36 [id number] Manfred Shelton MD Main Office [address] [place] [address] 06/17/2025 10:28:52 06/17/2025 13:18:56 [id number] Manfred Shelton MD Main Office [address] [place] [address] 06/18/2025 10:16:09 06/18/2025 13:16:04 [id number] Manfred Shelton MD Main Office [address] [place] [address] 06/19/2025 10:44:19 06/19/2025 14:15:39 [id number] COLEMAN LAU NP Main Office [address] [place] [address] 06/22/2025 10:36:06 06/22/2025 14:32:28 [id number] Manfred Shelton MD Main Office [address] [place] [address] 06/23/2025 10:18:15 06/23/2025 14:03:00 [id number] Manfred Shelton MD Main Office [address] [place] [address] 06/24/2025 10:23:16 06/24/2025 13:37:08 [id number] Manfred Shelton MD Main Office [address] [place] , [place] [address] 06/25/2025 10:19:36 06/25/2025 14:27:35 [id number] Manfred Shelton MD Main Office [address] [place] , [place] [address] 06/26/2025 10:52:38 06/26/2025 16:27:47 [id number] Manfred Shelton MD Main Office [address] [place] , [place] [address] 06/29/2025 10:44:14 06/29/2025 13:39:12 [id number] Manfred Shelton MD Main Office [address] [place] , [place] [address] 06/30/2025 10:42:21 06/30/2025 13:46:39 [id number] Manfred Shelton MD Main Office [address] [place] , [place] [address] 07/01/2025 10:49:18 07/01/2025 13:25:24 [id number] Manfred Shelton MD Main Office [address] [place] , [place] [address] 07/02/2025 10:15:06 07/03/2025 07:21:23 [id number] Manfred Shelton MD Main Office [address] [place] , [place] [address] 07/03/2025 10:50:33 07/03/2025 17:53:35 [id number] Manfred Shelton MD Main Office [address] [place] , [place] [address] 07/06/2025 10:54:52 07/06/2025 14:37:01 Health Concerns Section Related Observation LastModified by Organization Detai ls LastModified Time None Recorded Concern Status LastModified by Organization Details LastModified Time None Recorded Payers Encounter Date Sequence Insurance Name Policy Number Policy Gonzales Covered Member ID Gonzales Member ID Guarantor Name 07/06/2025 2 [employer] [facility] Seema Delacruz [id number] Seema Delacruz 07/06/2025 1 [employer] Seema Delacruz [id number] Seema Delacruz OBGyn Episode No OBEpisode recorded.
--- OUTSIDE RECORDS SUMMARY | 2025-09-16 16:32 | XMS_ITS | Data Portability ---
Author Organization [facility] Address [address] [place] [address] Care Team Providers Care Waiter/Waitress Counter Name Role Phone JOSÉ FREEMAN Referring Provider [...] able to tolerate neuropathic medications. She reports Pine 4 times a day has only been [...] today. She weighs 527 lbs and reports [email or web address] does not have a machine that [...] results proceeding with a cervical epidural C7/T1. [email or web address] Not available 12/23/2018 13:42:52 Plan of Treatment Reminders Order Date Submit Date Provider Last Modified By Organization Details Last Modified Time Details Appointments None recorded. Lab drug screen, urine 2018 019 [email or web address] [address], [facility] [address], [place], [address], 9 13:46:34 drug confirmat ion, urine 2018 019 [facility], [facility], [address] [place] [address], [address], 9 10:06:23 drug screen, urine 2018 [address], [place], [address], 9 14:19:56 Referral None recorded. Procedures None recorded. Surgeries None recorded. Imaging MRI, cervical spine, w/o contrast 2018 019 [email or web address] [place] (Centralized Scheduling), [address] [place] [address] , [place], [address], 9 11:38:08 Medication Orders None recorded. Patient TargetsNo targets recorded. Patient Instructions Encounter Date Encounter Id Patient Instructions Last Modified By Organization Details Last Modified Time 11/22/2018 [id number] medical record request* [email or web address] Not available 01/16/2019 09:44:25 Opioid Risk Tool (ORT)* [email or web address] Not available 11/22/2018 14:19:56 Reason for Referral None Reported. Results Created Date Observation Date Name Description Value Unit Range Abnormal Flag Note LastModifiedBy Organization Detail LastModifiedTime 11/22/19 19 11/22/2018 drug scree n, urine THC: negati ve Not Available [place] [address], [place], [address], 11/22/2018 13:51:47 11/22/1911/22/2018 drug scree n, urine Buprenorphin e: negati ve Not Available [address], [place], [address], 11/22/2018 13:51:47 11/22/1911/22/2018 drug scree n, urine TCA: positi ve Not Available [place] [address], [place], [address], 11/22/2018 13:51:47 11/22/1911/22/2018 drug scree n, urine Barbiturates : negati ve Not Available [place] [address], [place], [address], 11/22/2018 13:51:47 11/22/1911/22/2018 drug scree n, urine Benzodiazepi damari: negati ve Not Available [place] [address], [place], [address], 11/22/2018 13:51:47 11/22/19 19 11/22/2018 drug scree n, urine Methadone: negati ve Not Available [place] [address], [place], [address], 11/22/2018 13:51:47 11/22/19 19 11/22/2018 drug scree n, urine Amphetamines : negati ve Not Available [place] [address], [place], [address], 11/22/2018 13:51:47 11/22/19 19 11/22/2018 drug scree n, urine Morphine/Opi ates: negati ve Not Available [address], [place], [address], 11/22/2018 13:51:47 11/22/1911/22/2018 drug scree n, urine Oxycodone: negati ve Not Available [place] [address], [place], [address], 11/22/2018 13:51:47 11/22/1911/22/2018 drug scree n, urine MDMA: negati ve Not Available [address], [place], [address], 11/22/2018 13:51:47 11/22/1911/22/2018 drug scree n, urine Cocaine: negati ve Not Available [place] [address], [place], [address], 11/22/2018 13:51:47 11/22/1911/22/2018 drug scree n, urine Methamphetam ine: negati ve Not Available [place] [address], [place], [address], 11/22/2018 13:51:47 11/22/19 19 11/22/2018 Opioi d Risk Tool (ORT) * ORT 2 Not Available [address], [place], [address], 11/22/2018 13:52:02 11/25/19 19 11/25/2018 drug confi rmati on, urine abnormal status abnormal Not Available [facility], [address], [address], 12/05/2018 10:06:28 11/25/19 19 11/25/2018 speci men valid ity testi ng urine creatinine 324 mg/dL 44-355 normal Pres ribed Medic ation s: Pine (Hydr ocodo ne), Viji a (Preg abali n), Cital opram (Lisa lopra m) Not Available [facility], [address], [address], 12/05/2018 10:06:27 11/25/19 19 11/25/2018 ssri citalopram 502 POSITI VE NG/mL 75 normal Not Available [facility], [address], [address], 12/05/2018 10:06:27 11/25/19 19 11/25/2018 ssri N-desmethylc italopram 144 POSITI VE NG/mL 75 normal Not Available [facility], [address], [address], 12/05/2018 10:06:27 11/25/19 19 11/25/2018 ssri fluoxetine Not Detect ed NG/mL 75 normal Not Available [facility], [address], [address], 12/05/2018 10:06:27 11/25/19 19 11/25/2018 ssri norfluoxetin e Not Detect ed NG/mL 75 normal Not Available [facility], [address], [address], 12/05/2018 10:06:27 11/25/19 19 11/25/2018 ssri paroxetine Not Detect ed NG/mL 75 normal Not Available [facility], [address], [address], 12/05/2018 10:06:27 11/25/19 19 11/25/2018 ssri sertraline Not Detect ed NG/mL 75 normal Pres ribed Medic ation s: Pine (Hydr ocodo ne), Viji a (Preg abali n), Cital opram (Lisa lopra m) Not Available [facility], [address], [address], 12/05/2018 10:06:27 11/25/19 19 11/25/2018 amphe tamin es D/L - amphetamine Not Detect ed NG/mL 75 normal Not Available [facility], [address], [address], 12/05/2018 10:06:26 11/25/19 19 11/25/2018 amphe tamin es D/L - methamphetam ine Not Detect ed NG/mL 75 normal Not Available [facility], [address], [address], 12/05/2018 10:06:26 11/25/19 19 11/25/2018 amphe tamin es ritalinic acid Not Detect ed NG/mL 75 normal Pres ribed Medic ation s: Pine (Hydr ocodo ne), Viji a (Preg abali n), Cital opram (Lisa lopra m) Not Available [facility], [address], [address], 12/05/2018 10:06:26 11/25/19 19 11/25/2018 gemini turat es butalbital Not Detect ed NG/mL 150 normal Not Available [facility], [address], [address], 12/05/2018 10:06:26 11/25/19 19 11/25/2018 gemini doron es phenobarbita l Not Detect ed NG/mL 150 normal Pres ribed Medic ation s: Pine (Hydr ocodo ne), Viji a (Preg abali n), Cital opram (Lisa lopra m) Not Available [facility], [address], [address], 12/05/2018 10:06:26 11/25/19 19 11/25/2018 thera peuti c drugs carisoprodol -soma Not Detect ed NG/mL 75 normal Not Available [facility], [address], [address], 12/05/2018 10:06:25 11/25/19 19 11/25/2018 thera peuti c drugs meprobamate Not Detect ed NG/mL 75 [facility]: Pine (Hydr ocodo ne), Viji a (Preg abali n), Cital opram (Lisa lopra m) Not Available [facility], [address], [address], 12/05/2018 10:06:25 11/25/19 19 11/25/2018 benzo diaze pines 7-aminoclona zepam Not Detect ed NG/mL 60 normal Not Available [facility], [address], [address], 12/05/2018 10:06:25 11/25/19 19 11/25/2018 benzo diaze pines alprazolam Not Detect ed NG/mL 60 normal Not Available [facility], [address], [address], 12/05/2018 10:06:25 11/25/19 19 11/25/2018 benzo diaze pines alpha-hydrox yalprazolam Not Detect ed NG/mL 60 normal Not Available [facility], [address], [address], 12/05/2018 10:06:25 11/25/19 19 11/25/2018 benzo diaze pines lorazepam Not Detect ed NG/mL 60 normal Not Available [facility], [address], [address], 12/05/2018 10:06:25 11/25/19 19 11/25/2018 benzo diaze pines nordiazepam Not Detect ed NG/mL 60 normal Not Available [facility], [address], [address], 12/05/2018 10:06:25 11/25/19 19 11/25/2018 benzo diaze pines oxazepam Not Detect ed NG/mL 60 normal Not Available [facility], [address], [address], 12/05/2018 10:06:25 11/25/19 19 11/25/2018 benzo diaze pines temazepam Not Detect ed NG/mL 60 normal Presc ribed Medic ation s: Pine (Hydr ocodo ne), Viji a (Preg abali n), Cital opram (Lisa lopra m) Not Available [facility], [address], [address], 12/05/2018 10:06:25 11/25/1911/25/2018 sid analo gs gabapentin Not Detect ed NG/mL 225 normal Not Available [facility], [address], [address], 12/05/2018 10:06:24 11/25/19 19 11/25/2018 sid analo gs pregabalin Not Detect ed NG/mL 225 abnormal Not Available [facility], [address], [address], 12/05/2018 10:06:24 11/25/19 19 11/25/2018 sid analo gs zaleplon Not Detect ed NG/mL 7.5 normal Not Available [facility], [address], [address], 12/05/2018 10:06:24 11/25/19 19 11/25/2018 sid analo gs zolpidem Not Detect ed NG/mL 75 normal Pres ribed Medic ation s: Pine (Hydr ocodo ne), Viji a (Preg abali n), Cital opram (Lisa lopra m) Not Available [facility], [address], [address], 12/05/2018 10:06:24 11/25/19 19 11/25/[address] antag buprenorphin e Not Detect ed NG/mL 7.5 normal Not Available [facility], [address], [address], 12/05/2018 10:06:24 11/25/19 19 11/25/[address] antag norbuprenorp rachele Not Detect ed NG/mL 37.5 normal Not Available [facility], [address], [address], 12/05/2018 10:06:24 11/25/19 19 11/25/[address] antag naloxone Not Detect ed NG/mL 75 normal Not Available [facility], [address], [address], 12/05/2018 10:06:24 11/25/19 19 11/25/[address] antag pentazocine Not Detect ed NG/mL 22.5 normal Pres ribed Medic ation s: Pine (Hydr ocodo ne), Viji a (Preg abali n), Cital opram (Lisa lopra m) Not Available [facility], [address], [address], 12/05/2018 10:06:24 11/25/19 19 11/25/2018 opiat es/op ioids codeine Not Detect ed NG/mL 75 normal Not Available [facility], [address], [address], 12/05/2018 10:06:23 11/25/19 19 11/25/2018 opiat es/op ioids fentanyl Not Detect ed NG/mL 6 normal Not Available [facility], [address], [address], 12/05/2018 10:06:23 11/25/19 19 11/25/2018 opiat es/op ioids norfentanyl Not Detect ed NG/mL 6 normal Not Available [facility], [address], [address], 12/05/2018 10:06:23 11/25/19 19 11/25/2018 opiat es/op ioids morphine Not Detect ed NG/mL 75 normal Not Available [facility], [address], [address], 12/05/2018 10:06:23 11/25/19 19 11/25/2018 opiat es/op ioids hydrocodone Not Detect ed NG/mL 75 abnormal Not Available [facility], [address], [address], 12/05/2018 10:06:23 11/25/19 19 11/25/2018 opiat es/op ioids norhydrocodo ne Not Detect ed NG/mL 75 abnormal Not Available [facility], [address], [address], 12/05/2018 10:06:23 11/25/19 19 11/25/2018 opiat es/op ioids hydromorphon e Not Detect ed NG/mL 75 abnormal Not Available [facility], [address], [address], 12/05/2018 10:06:23 11/25/19 19 11/25/2018 opiat es/op ioids oxycodone Not Detect ed NG/mL 37.5 normal Not Available [facility], [address], [address], 12/05/2018 10:06:23 11/25/19 19 11/25/2018 opiat es/op ioids noroxycodone Not Detect ed NG/mL 37.5 normal Not Available [facility], [address], [address], 12/05/2018 10:06:23 11/25/19 19 11/25/2018 opiat es/op ioids oxymorphone Not Detect ed NG/mL 75 normal Not Available [facility], [address], [address], 12/05/2018 10:06:23 11/25/19 19 11/25/2018 opiat es/op ioids meperidine Not Detect ed NG/mL 37.5 normal Not Available [facility], [address], [address], 12/05/2018 10:06:23 11/25/19 19 11/25/2018 opiat es/op ioids normeperidin e Not Detect ed NG/mL 37.5 normal Not Available [facility], [address], [address], 12/05/2018 10:06:23 11/25/19 19 11/25/2018 opiat es/op ioids methadone Not Detect ed NG/mL 75 normal Not Available [facility], [address], [address], 12/05/2018 10:06:23 11/25/19 19 11/25/2018 opiat es/op ioids methadone (EDDP) Not Detect ed NG/mL 75 normal Not Available [facility], [address], [address], 12/05/2018 10:06:23 11/25/19 19 11/25/2018 opiat es/op ioids propoxyphene Not Detect ed NG/mL 75 normal Not Available [facility], [address], [address], 12/05/2018 10:06:23 11/25/19 19 11/25/2018 opiat es/op ioids norpropoxyph nadja Not Detect ed NG/mL 75 normal Not Available [facility], [address], [address], 12/05/2018 10:06:23 11/25/19 19 11/25/2018 opiat es/op ioids tapentadol Not Detect ed NG/mL 37.5 normal Not Available [facility], [address], [address], 12/05/2018 10:06:23 11/25/19 19 11/25/2018 opiat es/op ioids tramadol Not Detect ed NG/mL 75 normal Not Available [facility], [address], [address], 12/05/2018 10:06:23 11/25/19 19 11/25/2018 opiat es/op ioids E-rvx-cbzvvx -cis-tramado l Not Detect ed NG/mL 75 normal Presc ribed Medic ation s: Pine (Hydr ocodo ne), Viji a (Preg abali n), Cital opram (Lisa lopra m) Not Available [facility], [address], [address], 12/05/2018 10:06:23 11/25/19 19 11/25/2018 drug confi rmati on, urine comment: See Compon ents normal Presc ribed Medic ation s: Pine (Hydr ocodo ne), Viji a (Preg abali n), Cital opram (Lisa lopra m) Not Available [facility], [address], [address], 12/05/2018 10:06:23 12/24/1912/23/2018 drug scree n, urine THC: negati ve Not Available [place] [address], [place], [address], 12/23/2018 12:56:19 12/24/1912/23/2018 drug scree n, urine Buprenorphin e: negati ve Not Available [place] [address], [place], [address], 12/23/2018 12:56:19 12/24/1912/23/2018 drug scree n, urine TCA: positi ve Not Available [address], [place], [address], 12/23/2018 12:56:19 12/24/1912/23/2018 drug scree n, urine Barbiturates : negati ve Not Available [place] [address], [place], [address], 12/23/2018 12:56:19 12/24/1912/23/2018 drug scree n, urine Benzodiazepi damari: negati ve Not Available [place] [address], [place], [address], 12/23/2018 12:56:19 12/24/1912/23/2018 drug scree n, urine Methadone: negati ve Not Available [place] [address], [place], [address], 12/23/2018 12:56:19 12/24/1912/23/2018 drug scree n, urine Amphetamines : negati ve Not Available [place] [address], [place], [address], 12/23/2018 12:56:19 12/24/19 19 12/23/2018 drug scree n, urine Morphine/Opi ates: negati ve Not Available [address], [place], [address], 12/23/2018 12:56:19 12/24/19 19 12/23/2018 drug scree n, urine Oxycodone: negati ve Not Available [address], [place], [address], 12/23/2018 12:56:19 12/24/1912/23/2018 drug scree n, urine MDMA: negati ve Not Available [address], [place], [address], 12/23/2018 12:56:19 12/24/1912/23/2018 drug scree n, urine Cocaine: negati ve Not Available [address], [place], [address], 12/23/2018 12:56:19 12/24/1912/23/2018 drug scree n, urine Methamphetam ine: negati ve Not Available [address], [place], [address], 12/23/2018 12:56:19 12/25/1912/24/2018 speci men valid ity testi ng urine creatinine 57 mg/dL 44-355 normal Presc ribed Medic ation s: [place] codon e (Hydr ocodo ne), Amitr yptyl ine (Willie ripty line) , Escit alopr am (Lisa lopra m) Not Available [facility], [address], [address], 01/06/2019 15:22:37 12/25/19 19 12/24/2018 opioi ds commo nweal th buprenorphin e Not Detect ed NG/mL 7.5 normal Not Available [facility], [address], [address], 01/06/2019 15:22:37 12/25/19 19 12/24/2018 opioi ds commo nweal th norbuprenorp rachele Not Detect ed NG/mL 37.5 normal Not Available [facility], [address], [address], 01/06/2019 15:22:37 12/25/19 19 12/24/2018 opioi ds commo nweal th fentanyl Not Detect ed NG/mL 6 normal Not Available [facility], [address], [address], 01/06/2019 15:22:37 12/25/19 19 12/24/2018 opioi ds commo nweal th norfentanyl Not Detect ed NG/mL 6 normal Not Available [facility], [address], [address], 01/06/2019 15:22:37 12/25/19 19 12/24/2018 opioi ds commo nweal th methadone Not Detect ed NG/mL 75 normal Not Available [facility], [address], [address], 01/06/2019 15:22:37 12/25/19 19 12/24/2018 opioi ds commo nweal th codeine Not Detect ed NG/mL 75 normal Not Available [facility], [address], [address], 01/06/2019 15:22:37 12/25/19 19 12/24/2018 opioi ds commo nweal th morphine Not Detect ed NG/mL 75 normal Not Available [facility], [address], [address], 01/06/2019 15:22:37 12/25/19 19 12/24/2018 opioi ds commo nweal th hydrocodone 96 POSITI VE NG/mL 75 normal Not Available [facility], [address], [address], 01/06/2019 15:22:37 12/25/19 19 12/24/2018 opioi ds commo nweal th norhydrocodo ne 99 POSITI VE NG/mL 75 normal Not Available [facility], [address], [address], 01/06/2019 15:22:37 12/25/19 19 12/24/2018 opioi ds commo nweal th hydromorphon e Not Detect ed NG/mL 75 normal Not Available [facility], [address], [address], 01/06/2019 15:22:37 12/25/19 19 12/24/2018 opioi ds commo nweal th naloxone Not Detect ed NG/mL 75 normal Not Available [facility], [address], [address], 01/06/2019 15:22:37 12/25/19 19 12/24/2018 opioi ds commo nweal th pentazocine Not Detect ed NG/mL 22.5 normal Not Available [facility], [address], [address], 01/06/2019 15:22:37 12/25/19 19 12/24/2018 opioi ds commo nweal th meperidine Not Detect ed NG/mL 37.5 normal Not Available [facility], [address], [address], 01/06/2019 15:22:37 12/25/19 19 12/24/2018 opioi ds commo nweal th normeperidin e Not Detect ed NG/mL 37.5 normal Not Available [facility], [address], [address], 01/06/2019 15:22:37 12/25/19 19 12/24/2018 opioi ds commo nweal th oxycodone Not Detect ed NG/mL 37.5 normal Not Available [facility], [address], [address], 01/06/2019 15:22:37 12/25/19 19 12/24/2018 opioi ds commo nweal th oxymorphone Not Detect ed NG/mL 75 normal Not Available [facility], [address], [address], 01/06/2019 15:22:37 12/25/19 19 12/24/2018 opioi ds commo nweal th propoxyphene Not Detect ed NG/mL 75 normal Not Available [facility], [address], [address], 01/06/2019 15:22:37 12/25/19 19 12/24/2018 opioi ds commo nweal th norpropoxyph nadja Not Detect ed NG/mL 75 normal Not Available [facility], [address], [address], 01/06/2019 15:22:37 12/25/19 19 12/24/2018 opioi ds commo nweal th tapentadol Not Detect ed NG/mL 37.5 normal Not Available [facility], [address], [address], 01/06/2019 15:22:37 12/25/19 19 12/24/2018 opioi ds commo nweal th tramadol Not Detect ed NG/mL 75 normal Not Available [facility], [address], [address], 01/06/2019 15:22:37 12/25/19 19 12/24/2018 opioi ds commo nweal th B-xfz-lbvutl -cis-tramado l Not Detect ed NG/mL 75 normal Not Available [facility], [address], [address], 01/06/2019 15:22:37 12/25/19 19 12/24/2018 opioi ds commo nweal th noroxycodone Not Detect ed NG/mL 37.5 normal Not Available [facility], [address], [address], 01/06/2019 15:22:37 12/25/19 19 12/24/2018 opioi ds commo nweal th methadone (EDDP) Not Detect ed NG/mL 75 normal Presc ribed Medic ation s: [place] codon e (Hydr ocodo ne), Amitr yptyl ine (Willie ripty line) , Escit alopr am (Lisa lopra m) Not Available [facility], [address], [address], 01/06/2019 15:22:37 12/25/19 19 12/24/2018 opiat es, quant itati ve, urine comment: See Compon ents normal Presc ribed Medic ation s: [place] codon e (Hydr ocodo ne), Amitr yptyl ine (Willie ripty line) , Escit alopr am (Lisa lopra m) Not Available [facility], [address], [address], 01/06/2019 15:22:36 Result Notes None recorded. Problems Name Problem SNOMED Code Status Onset Date Resolution Date Notes Provider Name and Address Organization Details Recorded Time Neck pain 88294736 Active 2018 DOLORES [place] - [facility] 9 14:12:01 Cervical radiculopathy 81636795 Active 2018 DOLORES Gallardo - [facility] 9 14:19:26 Problem Notes None recorded. Procedures Surgical History Date Name Laterality Status Provider Name and Address Organization Details Recorded Time Knee Surgery completed Kendy Messer [facility] 11/22/2018 13:41:44 Joint Replacement completed Kendy Messer [facility] 11/22/2018 13:41:44 Carpal Tunnel Release completed Kendy Messer [facility] 11/22/2018 13:41:44 Imaging Results None recorded. Procedure Notes None recorded. Medical Equipment None Reported. Allergies Allergen ID Allergen Name Allergen Category Reaction Reaction Severity Criticality Documentation Date Start Date Code Code System Note Provider Name and Address Organization Details Recorded Time 42190 ibuprofen medicatio n itching nausea rash Not available Not available Not available Not available 11/22/2018 5640 RxNorm Kendy servin [facility] 9 13:41:22 Medications Name Sig Start Date [...] with needle 1 mL 31 gauge x 5/16 active Not Available Not Available Not Available [...] mass index (BMI) Body weight Oxygen saturation Heart rate Systolic And Diastolic Provider Name and Address Organization Details Last Updated DateTime 9 167.64 cm 85.1 kg/m2 424854. 18 g 97 % 99 /min 154/74 mm[Hg] Kendy Ballardguson [facility] 9 13:54:48 Date Recorded Body height Body mass index (BMI) Body weight Heart rate Oxygen saturation Systolic And Diastolic Provider Name and Address Organization Details Last Updated DateTime 9 167.64 cm 85.1 kg/m2 213368. 18 g 69 /min 99 % 134/84 mm[Hg] Kelly Dickson [facility] 9 13:00:58 Social History Question Answer Notes LastModified by Organizat ion Details LastModified Time Tobacco Smoking Status Former Smoker Kendy servin [facility] 11/22/2018 13:41:38 What Is Your Level Of Caffeine Consumption? Moderate [email or web address] Information not available 11/22/2018 How Much Tobacco Do You Chew? None [email or web address] Information not available 11/22/2018 Are You Deaf Or Do You Have Serious Difficulty Hearing? No [email or web address] Information not available 11/22/2018 Which Illicit Or Recreational Drugs Have You Used? Prescriptions [email or web address] Information not available 11/22/2018 Education 12 Information no t available 12/23/2018 Hard Of Hearing Or Deaf In One Or Both Ears? No [email or web address] Information not available 11/22/2018 Prescription Drug Abuse No Information not available 12/23/2018 Disability Yes Information no t available 12/23/2018 History Of Sexual Abuse No Information not available 12/23/2018 Marital Status Single [email or web address] Informati on not available 11/22/2018 What Was The Date Of Your Most Recent Tobacco Screening? 12/23/2018 Information not available 04/23/2019 General Stress Level Medium [email or web address] Information not available 11/22/2018 Has Tobacco Cessation Counseling Been Provided? No Information not available 12/23/2018 Do You Have Difficulty Walking Or Climbing Stairs? Yes [email or web address] Information not available 11/22/2018 Sex: Unknown Functional Status Question Answer Note LastModified by Organizat ion Details LastModified Time What is your level of alcohol consumption? None [email or web address] Information not available 11/22/2018 Are you able to walk independently without assistance or assistive devices? YESASSIST [email or web address] Information not available 11/22/2018 Do you have difficulty doing errands alone? Yes Information not available 11/22/2018 What is your occupation? Unemployed Information not available 12/23/2018 Do you have difficulty dressing, bathing, grooming, or toileting? No [email or web address] Information not available 11/22/2018 What is your exercise level? Occasional [email or web address] Information not available 11/22/2018 Mental Status Question Answer Note LastModified by Organization D etails LastModified Time Do you have difficulty concentrating, remembering or making decisions? No [email or web address] Information no t available 11/22/2018 Family History Relationship Description Onset Age of this Age Resolved Age Notes LastModified by Organization Details LastModified Time Maternal Grandmother Hypertensive disorder [email or web address] Not available 11/02 13:41:28 Father Hypertensive disorder [email or web address] Not available 11/02 13:41:28 Mother Fibromyalgia Not av ailable 11/22/2018 13:41:28 Mother Hypertensive disorder Not available 11/02 13:41:28 Brother Hypertensive disorder [email or web address] Not available 11/02 13:41:28 Medical History Condition Response Bipolar Disease N Coronary Artery Disease N Seizure Disorder N Gout N Hernia N Head Trauma/Injury N Depression Y Anxiety Disorder Y Cancer N Stroke N Liver Disease N Rheumatoid Arthritis N Headaches N Fibromyalgia N Kidney Disease N Autoimmune Disease N Osteoarthritis N Anemia N Heart Attack (ME) N Diabetes Y Cardiomyopathy N Bleeding Disorder N AIDS/HIV N Inflammatory Bowel Disease N Dementia N Substance Abuse N Sleep Apnea N Hepatitis N Heart Disease N Chronic Low Back Pain Y Hypertension N Osteoporosis N Gynecological HistoryNo gynecological history recorded. Obstetrics History GPAL:G 0 P 0 0 0 0 Past Encounters Encounter ID Performer Location Encounter Start Date Encounter Closed Date Diagnosis/Indication Diagnosis SNOMED-CT Code Diagnosis ICD10 Code Diagnosis IMO Codes Diagnosis Note [id number] Juaquin Arteaga DO [place] [address] [place] [address] 11/22/2018 13:15:40 11/22/2018 14:54:03 Long-term drug therapy 259625330 Z79.899 ORT and PHQ-9 testing was completed [...] is initiated in the future. Neck pain 90554189 M54.2 Cervical radiculopathy 03244127 M54.12 Medication monitoring 39 1462757 Z79.899 [id number] Austin Stoner MD [place] [address] [place] [address] 12/23/2018 12:50:46 12/23/2018 14:47:38 Cervical radiculopathy 54539100 M54.12 Long-term drug therapy 121369938 Z79.899 ORT and PHQ-9 testing was completed [...] initiated in the future. Medication monitoring 39 8311077 Z79.899 Health Concerns Section Related Observation LastModified by Organization Detai ls LastModified Time None Recorded Concern Status LastModified by Organization Details LastModified Time None Recorded Advance Directives Directive None Recorded Payers Insurance Date Sequence Insurance Name Policy Number Policy Gonzales Covered Member ID Gonzales Member ID Guarantor Name 01/18/2019 1 [place] Seema Delacruz [id number] Seema Delacruz 01/18/2019 2 [employer] [facility] (MEDICAID HMO) Seema Delacruz [id number] Seema Delacruz 01/03/2019 2 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 For associated symptoms, patient reportsnumbness,tingling, andpain in upper extremitiesbut reportsno weakness,no dizziness,no popping/clicking,no bladder incontinence, andno bowel incontinence. For location, patient reportsright paraspinalandradiating to the bilateral upper extremities to the hand. For duration, patient reportsconstant. For context, patient reportsstarted without cause. For pain intensity, patient reportscurrent pain level: 7/10andworst pain level: 10/10. For alleviating factors, patient reportsheat(ice). For timing, patient reportsconstant. For prior imaging, patient reportsno recent studies. For previous cervical surgery, patient reportsnone. For interventional treatment history, patient reportsnone. For previous pt, patient reportscompleted all recommended pt visitsandresponse to therapy: made pain worse. For other conservative treatment, patient reportschiropractic treatments: __. For medications history, patient reportsnsaids: (celebrex, diclofenac and mobic (not effective)),muscle relaxants: (flexeril, tizanidine, robaxin and baclofen (not effective)),neuropathics: (gabapentin (unable to tolerate) lyrica (minimal)), andopioid pain medications: (norco (not effective)). For working, patient reportsno. For prior pain management, patient reportsyes. For aggravating factors, (upper extremity activities). 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 (cane),unable to work., andunable to exercise.but reportsliving independently.andable to bathe/groom without assistance.. For improvement, patient reportspain is the same as compared to last visit.. For pain scores, patient reportsaverage pain- 9/10,current pain- 8/10, andworst pain- 10/10. For current analgesics, patient reportsopioids- hydrocodone(no medications from our office. pharmacy verified.). For adverse reactions, patient reportsno nausea.,no vomiting.,no constipation.,no itching.,no sedation.,no respiratory depression., andno sexual dysfunction.. Neck painReported by PatientHPIFor quality, patient reportssharp. For associated symptoms, patient reportsnumbness,tingling, andpain in upper extremitiesbut reportsno weakness,no dizziness,no popping/clicking,no bladder incontinence, andno bowel incontinence. For location, patient reportsright paraspinal,midline spine, andradiating to the bilateral upper extremities to the hand(r>l). For duration, patient reportsconstant. For context, patient reportsstarted without cause. For pain intensity, patient reportscurrent pain level: 8/10,worst pain level: 10/10, andsevere. For alleviating factors, patient reportsheat(ice). For timing, patient reportsconstant. For prior imaging, patient reportsno recent studies. For previous cervical surgery, patient reportsnone. For interventional treatment history, patient reportsnone. For previous pt, patient reportscompleted all recommended pt visitsandresponse to therapy: made pain worse. For other conservative treatment, patient reportschiropractic treatments: __. For medications history, patient reportsnsaids: (celebrex, diclofenac and mobic (not effective)),muscle relaxants: (flexeril, tizanidine, robaxin and baclofen (not effective)),neuropathics: (gabapentin (unable to tolerate) lyrica (minimal)), andopioid pain medications: (norco (not effective)). For working, patient reportsno. For prior pain management, patient reportsyes. For aggravating factors, (upper extremity activities). Autsin Stoner MD [address] [place] [address], [phone], [facility] 12/24/2018 12:57:11 OBGyn Episode No OBEpisode recorded.
--- OUTSIDE RECORDS SUMMARY | 2025-09-16 16:32 | XMS_ITS | Continuity of Care Document ---
Author Organization [place] [facility], Main Office Address [address] [place] [address] Care Team Providers Care Registrar Museum Name Role Phone STEPHY YUSUF Primary Care Provider [phone] Assessment No assessment recorded. Plan of Treatment [...] E11.621 ___ ___ Session Notes: Today's Date [id number] HBOT session 40 of 60 Next HBOT [id number] 30Jul - Patient cleared for 1st HBOT [...] antibiotics for an upper respiratory infection. Nicolasa USPS LETTER CARRIER 07Aug- Patient cleared for HBOT today. VS stable. PAtient had little trouble reaching pressure today, but had to come out of chamber early due to needing to use restroom. She managed to do 4 segs-118 minutes. [place].Tanner USPS LETTER CARRIER 08Aug - Patient cleared for HBOT today. VS stable. Patient completed full session with no problem. Antoinette Lau USPS LETTER CARRIER 11Aug - Patient cleared for HBOT today. [...] full session with no problem. Antoinette Lau USPS LETTER CARRIER 13Aug - Patient cleared for HBOT today. VS stable. Patient completed full session with no problem. Wound care to follow treatment today. Antoinette Lau APRN 14Aug - Patient cleared for HBOT today. VS stable. Patient completed full session with no problem. Antoinette Lau USPS LETTER CARRIER 15Aug - Patient cleared for HBOT today. [...] attempt to try again on Sunday. Nicolasa USPS LETTER CARRIER 18Aug - Patient cleared for HBOT today. VS stable. Patient completed full session with no problem. Antoinette Lau USPS LETTER CARRIER 19Aug - Patient deemed safe for HBOT today. VS stable. FSBS within range. Patient completed full session with no problem. Antoinette Lau USPS LETTER CARRIER 2015Aug - Patient cleared for HBOT today. [...] Patient completed full session with no problem. Atnoinette Lau APRN 11Sep - Patient cleared for HBOT today. VS stable. Patient completed full session with no problem. [place].Jessica Lau USPS LETTER CARRIER 12Sep - Found safe for HBOT this [...] full session with no problem. Antoinette Sotowood USPS LETTER CARRIER 26Sep - Deemed safe for HBOT on this date and completed the full session uneventfully. [facility] 29Sep - Patient cleared for HBOT today. VS stable. Patient completed 3 Seg session with no problem. Antoinette Lau USPS LETTER CARRIER Not available 06/29/2025 13:39:05 Reason for Referral None Reported. Problems Name Problem SNOMED Code Status Onset Date Resolution Date Notes Provider Name and Address Organization Details Recorded Time Upper respiratory infection 91691288 Active 2024 COLEMAN LAU NP null, [place] - [facility] 12:18:40 Episodic migraine 7764416129568 Active 2024 COLEMAN LAU NP null, [place] - [facility] 12:34:01 Type 2 diabetes mellitus 32824119 Active 2024 COLEMAN LAU NP null, [place] [facility] 15:27:12 Refractory migraine with aura 861403902 Active 2024 COLEMAN LAU NP null, [place] [facility] 10:56:52 Recurrent acute frontal sinusitis Active 2024 COLEMAN ALU NP null, [place] [facility] 12:47:05 Candidiasis of vagina 36660781 Active 2024 COLEMAN LAU NP null, [place] [facility] 12:47:26 Acute upper respiratory infection 32395246 Active 2024 COLEMAN LAU NP [place], [place] [...] ALU NP [place] - [facility] 09/14/2025 14:54:43 09/07/20 25 [facility] Therapy Treatment Form completed Carolyn roland [place] - [facility] 09/07/2025 12:38:58 08/31/20 25 [facility] Therapy Treatment Form completed Carolyn roland [place] - [facility] 08/31/2025 12:48:46 08/25/20 25 [facility] Therapy Treatment Form completed Carolyn roland [place] - [facility] 08/25/2025 12:52:26 08/24/20 25 [facility] Therapy Treatment Form completed Carolyn roland [place] - [facility] 08/24/2025 12:53:43 08/17/20 25 [facility] Therapy Treatment Form completed Carolyn roland [place] - [facility] 08/17/2025 13:02:48 08/14/20 25 [facility] Therapy Treatment Form completed Lisa Sosa [place] - [facility] 08/14/2025 12:43:08 08/13/20 25 [facility] Therapy Treatment Form completed Carolyn roland [place] - [facility] 08/13/2025 12:27:58 08/12/20 25 [facility] Therapy Treatment Form completed Carolyn roland [place] - [facility] 08/12/2025 12:36:02 08/12/20 25 Wound completed COLEMAN LAU NP [place] - [facility] 08/12/2025 14:15:15 08/11/20 25 [facility] Therapy Treatment Form completed Carolyn roland [place] - [facility] 08/11/2025 12:58:18 08/10/20 25 [facility] Therapy Treatment Form completed Carolyn roland [place] - [facility] 08/10/2025 12:57:23 08/04/20 25 [facility] Therapy Treatment Form completed ABDOULAYE [place] - [facility] 08/04/2025 13:51:50 08/03/20 25 [facility] Therapy Treatment Form completed COLEMAN LAU NP [place] - [facility] 08/03/2025 14:17:35 07/30/20 25 [facility] Therapy Treatment Form completed Carolyn roland [place] - [facility] 07/30/2025 12:38:27 07/29/20 25 [facility] Therapy Treatment Form completed Carolyn roland [place] - [facility] 07/29/2025 12:40:06 07/28/20 [...] Form completed [facility] - [facility] 07/23/2025 12:41:49 07/22/20 [facility] Therapy Treatment Form completed [facility] - [facility] 07/22/2025 12:53:32 07/21/20 [facility] Therapy Treatment Form completed [facility] - [facility] 07/21/2025 12:43:55 07/20/20 [facility] Therapy Treatment Form completed [facility] - [facility] 07/20/2025 12:58:21 07/17/20 [...] Form completed [facility] - [facility] 07/15/2025 12:39:29 07/14/20 25 [facility] Therapy Treatment Form completed COLEMAN LAU NP [place] - [facility] 07/14/2025 15:14:39 07/09/20 25 [facility] Therapy Treatment Form completed [facility] - [facility] 07/09/2025 12:46:05 07/08/20 25 [facility] Therapy Treatment Form completed [facility] - [facility] 07/08/2025 12:41:28 07/07/20 25 [facility] Therapy Treatment Form completed Manfred Shelton MD [place] - [facility] 07/08/2025 08:10:21 07/06/20 25 [facility] Therapy Treatment Form completed [facility] - [facility] 07/06/2025 13:06:29 07/03/20 [...] Form completed [facility] - [facility] 06/29/2025 13:24:58 06/26/20 25 [facility] Therapy Treatment Form completed Manfred Shelton MD [place] - [facility] 06/26/2025 16:57:55 06/25/20 25 [facility] Therapy Treatment Form completed [facility] - [facility] 06/25/2025 12:47:07 06/24/20 25 [facility] Therapy Treatment Form completed [facility] - [facility] 06/24/2025 12:40:20 06/23/20 25 [facility] Therapy Treatment Form completed [facility] - [facility] 06/23/2025 12:39:50 06/22/20 25 [facility] Therapy Treatment Form completed [facility] - [facility] 06/22/2025 12:49:55 06/19/20 25 [facility] Therapy Treatment Form completed Manfred Shelton MD [place] - [facility] 06/19/2025 14:13:24 06/18/20 25 [facility] Therapy Treatment Form completed COLEMAN LAU NP [place] - [facility] 06/18/2025 13:17:34 06/17/20 25 [facility] Therapy Treatment Form completed [facility] - [facility] 06/17/2025 12:29:15 06/16/20 25 [facility] Therapy Treatment Form completed [facility] - [facility] 06/16/2025 12:45:53 06/15/20 25 [facility] Therapy Treatment Form completed [facility] - [facility] 06/15/2025 12:47:07 06/12/20 25 [facility] Therapy Treatment Form completed Manfred Shelton MD [place] - [facility] 06/12/2025 14:54:52 06/11/20 25 [facility] Therapy Treatment Form completed Carolyn sharp [place] - [facility] 06/11/2025 13:02:39 06/10/20 25 [facility] Therapy Treatment Form completed [facility] - [facility] 06/10/2025 12:50:18 06/08/20 25 [facility] Therapy Treatment Form completed [facility] - [facility] 06/08/2025 12:56:07 [...] Form completed [facility] - [facility] 06/02/2025 13:09:37 05/29/20 25 [facility] Therapy Treatment Form completed [facility] - [facility] 05/29/2025 12:25:31 05/28/20 25 [facility] Therapy Treatment Form completed [facility] - [facility] 05/28/2025 13:02:44 05/27/20 25 Wound completed COLEMAN LAU NP [place] - [facility] 05/27/2025 13:18:22 05/27/20 25 [facility] Therapy Treatment Form completed [facility] - [facility] 05/27/2025 12:50:01 05/26/20 25 Nurse Note completed Luciana Noriega [place] - [facility] 05/26/2025 16:40:42 05/26/20 25 [facility] Therapy Treatment Form completed [facility] - [facility] 05/26/2025 12:27:56 05/25/20 25 [facility] Therapy Treatment Form completed [facility] - [facility] 05/25/2025 13:12:32 05/22/20 25 [facility] Therapy Treatment Form completed [facility] - [facility] 05/22/2025 12:33:28 05/21/20 [...] Not available Not available 04/23/2025 5640 RxNorm DOOLRES [place] - [facility] 14:25:04 1102 Rocephin medicatio n Not available Not available Not available 04/23/2025 9449 RxNorm Luciana servin, [place] - [facility] 14:25:10 1103 Inapsine medicatio n Not available Not available Not available 04/23/2025 35457 3 RxNorm Luciana servin, [place] - [facility] 14:25:27 1104 Avelox medicatio n Not available Not available Not available 04/23/2025 77033 6 RxNorm [place] - [facility] 14:25:52 1105 metformin medicatio n other Not available low 04/23/20252023 6809 RxNorm GI issue s Luciana Noriega null, [place] - [facility] 5 14:26:11 1253 Product containin g angiotens in-conver ting enzyme inhibitor (product) medicatio n cough moderate Not available 06/26/2025 72905 009 SNOMED Not Available [facility] - [employer] - prod 5 10:54:20 1254 metformin hydrochlo ride medicatio n Not available Not available Not available 06/26/2025 37276 3 RxNorm Not Available [facility] [employer] - prod 10:54:20 1358 ceftriaxo ne medicatio n rash moderate Not available 07/15/2025 2193 RxNorm Not Available [facility] [employer] - prod 5 10:18:57 1359 droperido l medicatio n dyspnea Not available Not available 07/15/2025 3648 RxNorm Not Available [facility] [employer] - prod 5 10:18:57 1360 moxifloxa beck medicatio n rash moderate Not available 07/15/2025 76289 2 RxNorm Not Available [facility] [employer] - prod 10:18:57 1461 moxifloxa beck hydrochlo ride medicatio n Not available Not available Not available 08/24/20252015 44120 0 RxNorm Not Available [facility] [employer] - prod 5 04:35:37 Medications [...] /min 16 /min 95.7 [degF] 95 % 72 /min 16 /min 95.5 [degF] 95 % 159/75 mm[Hg] 131/75 mm[Hg] [facility] - [facility] 5 13:15:34 Social [...] MD Main Office [address] [place] [address] 05/29/2025 10:04:58 05/29/2025 17:43:48 [id number] Manfred Shelton MD Main Office [address] [place] [address] 06/02/2025 10:25:50 06/02/2025 14:14:27 [id number] Manfred Shelton MD Main Office [address] [place] [address] 06/03/2025 10:16:52 06/03/2025 14:45:20 [id number] Manfred Shelton MD Main Office [address] [place] [address] 06/04/2025 10:31:23 06/04/2025 13:58:07 [id number] Manfred Shelton MD Main Office [address] [place] [address] 06/04/2025 14:13:52 06/04/2025 14:25:08 [id number] Manfred Shelton MD Main Office [address] [place] [address] 06/05/2025 10:55:07 06/05/2025 16:50:44 [id number] Manfred Shelton MD Main Office [address] [place] [address] 06/08/2025 10:25:37 06/08/2025 14:39:12 [id number] Manfred Shelton MD Main Office [address] [place] [address] 06/10/2025 10:19:13 06/10/2025 13:21:20 [id number] Manfred Shelton MD Main Office [address] [place] [address] 06/11/2025 10:35:04 06/11/2025 14:11:07 [id number] Manfred Shelton MD Main Office [address] [place] [address] 06/12/2025 10:59:45 06/12/2025 14:56:49 [id number] Manfred Shelton MD Main Office [address] [place] [address] 06/15/2025 10:50:33 06/15/2025 13:14:21 [id number] Manfred Shelton MD Main Office [address] [place] [address] 06/16/2025 10:14:56 06/16/2025 13:52:36 [id number] Manfred Shelton MD Main Office [address] [place] [address] 06/17/2025 10:28:52 06/17/2025 13:18:56 [id number] Manfred Shelton MD Main Office [address] [place] [address] 06/18/2025 10:16:09 06/18/2025 13:16:04 [id number] Manfred Shelton MD Main Office [address] [place] [address] 06/19/2025 10:44:19 06/19/2025 14:15:39 [id number] COLEMAN LAU NP Main Office [address] [place] [address] 06/22/2025 10:36:06 06/22/2025 14:32:28 [id number] Manfred Shelton MD Main Office [address] [place] [address] 06/23/2025 10:18:15 06/23/2025 14:03:00 [id number] Manfred Shelton MD Main Office [address] [place] [address] 06/24/2025 10:23:16 06/24/2025 13:37:08 [id number] Manfred Shelton MD Main Office [address] [place] [address] 06/25/2025 10:19:36 06/25/2025 14:27:35 [id number] Manfred Shelton MD Main Office [address] [place] [address] 06/26/2025 10:52:38 06/26/2025 16:27:47 [id number] Manfred Shelton MD Main Office [address] [place] [address] 06/29/2025 10:44:14 06/29/2025 13:39:12 Health Concerns Section Related Observation LastModified by Organization Detai ls LastModified Time None Recorded Concern Status LastModified by Organization Details LastModified Time None Recorded Payers Encounter Date Sequence Insurance Name Policy Number Policy Gonzales Covered Member ID Gonzales Member ID Guarantor Name 06/29/2025 2 [facility] Seema Delacruz [id number] Seema Delacruz 06/29/2025 1 [employer] Seema Delacruz [id number] Seema Delacruz OBGyn Episode No OBEpisode recorded.
--- OUTSIDE RECORDS SUMMARY | 2025-09-16 16:33 | XMS_ITS | Continuity of Care Document ---
Author Organization [place] - [facility], Main Office Address [address] [place] [address] Care Team Providers Care Label Pinker Name Role Phone STEPHY YUSUF Primary Care Provider [phone] Assessment No assessment recorded. Plan of Treatment [...] Modified By Organization Details Last Modified Time 08/11/2025 [id number] BACKGROUND: Seema Delacruz is a 55 y.o. [...] Diagnosis: L97.512, E11.621 Session Notes: Today's Date 11Aug2025 HBOT session 65 of 80 Next HBOT 12Aug2025 30Jul - Patient cleared for 1st HBOT [...] antibiotics for an upper respiratory infection. Nicolasa INTERFACE ANALYST 07Aug- Patient cleared for HBOT today. VS stable. PAtient had little trouble reaching pressure today, but had to come out of chamber early due to needing to use restroom. She managed to do 4 segs-118 minutes. [place].Tanner INTERFACE ANALYST 08Aug - Patient cleared for HBOT today. VS stable. Patient completed full session with no problem. Antoinette Lau INTERFACE ANALYST 11Aug - Patient cleared for HBOT [...] full session with no problem. Antoinette Lau INTERFACE ANALYST 13Aug - Patient cleared for HBOT today. VS stable. Patient completed full session with no problem. Wound care to follow treatment today. Antoinette Lau APRN 14Aug - Patient cleared for HBOT today. VS stable. Patient completed full session with no problem. Antoinette Lau INTERFACE ANALYST 15Aug - Patient cleared for HBOT [...] attempt to try again on Sunday. Nicolasa INTERFACE ANALYST 18Aug - Patient cleared for HBOT today. VS stable. Patient completed full session with no problem. Antoinette Lau INTERFACE ANALYST 19Aug - Patient deemed safe for [...] significant anxiety. Dressing change today per nursing. [facility] [place] - Patient deemed safe for HBOT [...] full session free of problem. [facility] 29Aug - Cleared for HBOT his date and completed full session free of problem. Of note, this patient continues to smoke tobacco cigarettes. [facility] 02Sep - Patient deemed safe for HBOT [...] above 80 and was discharged with 92. [facility] 08Sep - Patient deemed safe for HBOT today. VS stable. Patient completed full session with no problem. [place].Jessica Lau APRN 10Sep - Patient deemed safe for HBOT today. VS stable. Patient completed full session with no problem. Antoinette Lau APRN 11Sep - Patient cleared for HBOT today. VS stable. Patient completed full session with no problem. [place].Jessica Lau INTERFACE ANALYST 12Sep - Found safe for HBOT this date. Completed curtailed session free of problem. Session shortened to satisfy demand of ride provider. [facility] 15[place] - Patient cleared for HBOT today. [...] full session with no problem. IsraelIlsa Lau INTERFACE ANALYST 26Sep - Deemed safe for HBOT on this date and completed the full session uneventfully. [facility] 29[place] - Patient cleared for HBOT today. VS stable. Patient completed 3 Seg session with no problem. M.ADeepali Lau INTERFACE ANALYST 30Sep - Patient cleared for HBOT today. VS stable. Patient completed full session with no problem. M.Jessica Lau INTERFACE ANALYST 01Oct - Patient cleared for HBOT today. VS stable. Patient completed full session with no problem. M.Jessica Lau INTERFACE ANALYST 02Oct - Cleared for HBOT this date and completed full session free of problem. [facility] 03Oct - Deemed safe for HBOT today and completed her full session without problem. [facility] 06Oct - Found safe for HBOT this date and tolerated her session free of problem. [facility] 07Oct- Cleared for HBOT this date and completed the full session without problem. [facility] 08Oct - Glu on arrival marginal so given caloric intake first and then cleared for HBOT this day. Had no problem completing full session emerging at Glu 139. [facility] 09Oct - Deemed safe for HBOT today and completed full session without problem. [facility] 14Oct - Patient returns after being out ill. Cleared for HBOT today. VS stable. Patient completed full session with no problem. Israel.Jessica Lau INTERFACE ANALYST 15Oct - Patient cleared for HBOT today. VS stable. Patient completed full session with no problem. M.Jessica Lau INTERFACE ANALYST 16Oct - Patient cleared for HBOT today. VS stable. Patient completed full session with no problem. M.Jessica Lau INTERFACE ANALYST 17Oct - Patient cleared for HBOT today. VS stable. Patient completed full session with no problem. [place].Jessica Lau INTERFACE ANALYST 20Oct - Patient an hour late today due to transportation company. She can only do an hour, or she will not have a ride back home. Cleared for HBOT, VS stable. Finished 1 hour session with no issues or complaints. M.Tanner INTERFACE ANALYST 21Oct - Patient cleared for HBOT today. VS stable. Patient completed full session with no problem. M.ADeepali Lau INTERFACE ANALYST 22Oct - Patient cleared for HBOT today. VS stable. Patient completed full session with no problem. M.Jessica Lau INTERFACE ANALYST 23Oct - Patient cleared for HBOT today. VS stable. Patient completed full session with no problem. Antoinette Lau APRN 24Oct - Deemed safe for HBOT this date and did complete full session without problem. [facility] 27Oct - Patient cleared for HBOT today. [...] full session free of problem. [facility] 31Oct - See E&M visit note 03Nov [...] SANTY today with no issues. Antoinette Lau INTERFACE ANALYST 05-07Nov - patient out ill - [facility] 10Nov - Patient deemed safe for HBOT today. VS stable. Patient completed full session with no issues or problem. Antoinette Lau INTERFACE ANALYST 11Nov - Patient cleared for HBOT today. VS stable. Patient completed full session with no problem. Antoinette Lau INTERFACE ANALYST Not available 08/11/2025 14:13:32 Reason for Referral None Reported. Results Created [...] Organization Details Recorded Time Upper respiratory infection [id number] Active 2024 COLEMAN LAU NP null, [place] - [facility] 12:18:40 Episodic migraine [id number] 06 Active 2024 COLEMAN LAU NP null, [place] - [facility] 12:34:01 Type 2 diabetes mellitus 20031124 Active 2024 COLEMAN LAU NP null, [place] - [facility] 15:27:12 Refractory migraine with aura 701466054 Active 2024 COLEMAN LAU DIAMOND SAW OPERATOR null, [place] - [facility] 10:56:52 Recurrent acute frontal sinusitis Active 2024 COLEMAN LAU NP null, [place] - [facility] 12:47:05 Candidiasis of vagina 15289739 Active 2024 COLEMAN LAU NP null, [place] - [facility] 12:47:26 Acute upper respiratory infection 07634332 Active 2024 COLEMAN LAU NP null, [place] [...] [facility] - [facility] 09/07/2025 12:38:58 08/31/20 25 [facility] Therapy Treatment Form completed [facility] - [facility] 08/31/2025 12:48:46 08/25/20 25 [facility] Therapy Treatment Form completed [facility] - [facility] 08/25/2025 12:52:26 08/24/20 25 [facility] Therapy Treatment Form completed [facility] - [facility] 08/24/2025 12:53:43 08/17/20 25 [facility] Therapy Treatment Form completed [facility] - [facility] 08/17/2025 13:02:48 08/14/20 25 [facility] Therapy Treatment Form completed Lisa Sosa [place] - [facility] 08/14/2025 12:43:08 08/13/20 25 [facility] Therapy Treatment Form completed [facility] - [facility] 08/13/2025 12:27:58 08/12/20 25 [facility] Therapy Treatment Form completed [facility] - [facility] 08/12/2025 12:36:02 08/12/20 25 Wound completed COLEMAN LAU NP [place] - [facility] 08/12/2025 14:15:15 08/11/20 25 [facility] Therapy Treatment Form completed [facility] - [facility] 08/11/2025 12:58:18 08/10/20 25 [facility] Therapy Treatment Form completed [facility] - [facility] 08/10/2025 [...] [facility] Therapy Treatment Form completed [facility] [place] - [facility] 07/23/2025 12:41:49 07/22/20 [facility] Therapy Treatment Form completed [facility] - [facility] 07/22/2025 12:53:32 07/21/20 [facility] Therapy Treatment Form completed [facility] - [facility] 07/21/2025 12:43:55 07/20/20 [facility] Therapy Treatment Form completed [facility] - [facility] 07/20/2025 [...] [facility] Therapy Treatment Form completed [facility] [place] - [facility] 07/15/2025 12:39:29 07/14/20 [facility] Therapy Treatment Form completed COLEMAN LAU NP [place] - [facility] 07/14/2025 15:14:39 07/09/20 25 [facility] Therapy Treatment Form completed [facility] - [facility] 07/09/2025 12:46:05 07/08/20 [facility] Therapy Treatment Form completed [facility] - [facility] 07/08/2025 12:41:28 07/07/20 25 [facility] Therapy Treatment Form completed Manfred Shelton MD [place] - [facility] 07/08/2025 08:10:21 07/06/20 25 [facility] Therapy Treatment Form completed Carolyn roland [place] - [facility] 07/06/2025 13:06:29 07/03/20 25 [facility] Therapy Treatment Form completed Paula Licea [place] - [facility] 07/03/2025 12:47:29 07/02/20 [...] Carolyn roland [place] - [facility] 06/25/2025 12:47:07 06/24/20 25 [facility] Therapy Treatment Form completed Carolyn luan [place] - [facility] 06/24/2025 12:40:20 06/23/20 25 [facility] Therapy Treatment Form completed Caorlyn roland [place] - [facility] 06/23/2025 12:39:50 06/22/20 25 [facility] Therapy Treatment Form completed Carolyn roland [place] - [facility] 06/22/2025 12:49:55 06/19/20 25 [facility] Therapy Treatment Form completed MD [place] - [facility] 06/19/2025 14:13:24 06/18/20 25 [facility] Therapy Treatment Form completed COLEMAN LAU NP [place] - [facility] 06/18/2025 13:17:34 06/17/20 25 [facility] Therapy Treatment Form completed Carolyn roland [place] - [facility] 06/17/2025 12:29:15 06/16/20 25 [facility] Therapy Treatment Form completed Carolyn roland [place] - [facility] 06/16/2025 12:45:53 06/15/20 25 [facility] Therapy Treatment Form completed [facility] [place] - [facility] 06/15/2025 [...] [facility] - [facility] 05/26/2025 [...] Evelia Beckhiram [place] - [facility] 05/19/2025 13:53:26 [...] 13:01:51 05/06/20 25 Wound completed COLEMAN LAU DIAMOND SAW OPERATOR [place] [facility] 05/07/2025 08:29:18 05/06/20 25 [facility] Therapy Treatment Form completed Mary BERNAL - [facility] 05/06/2025 12:30:26 05/04/20 25 [facility] Therapy Treatment Form completed Caorlyn roland [place] - [facility] 05/04/2025 [...] 14:32:38 procedure on integumentary system completed Luciana Noirega [place] - [facility] 04/23/2025 14:33:00 [...] n Not available Not available Not available 04/23/202506440 3 RxNorm Luciana servin, [place] - [facility] 5 14:25:27 1104 Avelox medicatio n Not available Not available Not available 04/23/2025 23293 6 RxNorm [place] - [facility] 5 14:25:52 1105 metformin medicatio n other Not available low 04/23/20252023 6809 RxNorm GI issue s Luciana servin, [place] - [facility] 5 14:26:11 1253 Product containin g angiotens in-conver ting enzyme inhibitor (product) medicatio n cough moderate Not available 06/26/2025 48214 009 SNOMED Not Available taisha - [employer] - prod 5 10:54:20 1254 metformin hydrochlo ride medicatio n Not available Not available Not available 06/26/2025 33515 3 RxNorm Not Available [employer] - prod 5 10:54:20 1358 ceftriaxo ne medicatio n rash moderate Not available 07/15/2025 2193 RxNorm Not Available [employer] - prod 5 10:18:57 1359 droperido l medicatio n dyspnea Not available Not available 07/15/2025 3648 RxNorm Not Available [employer] - prod 5 10:18:57 1360 moxifloxa beck medicatio n rash moderate Not available 07/15/2025 73026 2 RxNorm Not Available [employer] - prod 5 10:18:57 1461 moxifloxa beck hydrochlo ride medicatio n Not available Not available Not available 08/24/20252015 17907 0 RxNorm Not Available [employer] - prod 5 04:35:37 Medications [...] Updated DateTime 5 76 /min 16 /min 98.4 [degF] 88 % 69 /min 16 /min 98.1 [degF] 91 % 175/85 mm[Hg] 136/71 mm[Hg] [facility] - [facility] 5 12:58:37 Social History None recorded. Functional Status None [...] [id number] Manfred Shelton MD Main Office [address] [place] [address] 07/14/2025 10:06:05 07/14/2025 15:15:47 [id number] Manfred Shelton MD Main Office [address] [place] [address] 07/15/2025 10:17:40 07/15/2025 13:26:46 [id number] Manfred Shelton MD Main Office [address] [place] [address] 07/15/2025 14:45:53 07/15/2025 14:48:12 [id number] Manfred Shelton MD Main Office [address] [place] [address] 07/16/2025 10:18:19 07/16/2025 14:20:47 [id number] Manfred Shelton MD Main Office [address] [place] [address] 07/17/2025 10:06:47 07/17/2025 14:10:36 Refractory migraine with aura [id number] G43.450 [id number] Manfred hSelton MD Main Office [address] [place] [address] 07/20/2025 11:09:11 07/20/2025 14:45:37 [id number] Manfred Shelton MD Main Office [address] [place] [address] 07/21/2025 10:11:12 07/21/2025 12:49:36 [id number] Manfred Shelton MD Main Office [address] [place] [address] 07/22/2025 10:10:07 07/22/2025 13:11:46 [id number] Manfred Shelton MD Main Office [address] [place] [address] 07/23/2025 10:48:45 07/23/2025 15:03:21 [id number] Manfred Shelton MD Main Office [address] [place] [address] 07/24/2025 10:18:12 07/24/2025 17:58:24 [id number] Manfred Shelton MD Main Office [address] [place] [address] 07/27/2025 10:15:44 07/27/2025 14:05:56 [id number] Manfred Shelton MD Main Office [address] [place] , [place] [address] 07/28/2025 10:36:12 07/28/2025 13:58:27 [id number] Manfred Shelton MD Main Office [address] [place] , [place] [address] 07/29/2025 10:14:56 07/29/2025 13:38:02 [id number] Manfred Shelton MD Main Office [address] [place] [address] 07/30/2025 10:32:11 07/31/2025 08:45:48 [id number] Manfred Shelton MD Main Office [address] [place] , [place] [address] 08/01/2025 08:56:19 08/01/2025 09:05:22 [id number] Manfred Shelton MD Main Office [address] [place] , [place] [address] 08/03/2025 10:12:43 08/03/2025 14:18:16 [id number] Manfred Shelton MD Main Office [address] [place] , [place] [address] 08/04/2025 10:18:33 08/04/2025 13:52:38 [id number] Manfred Shelton MD Main Office [address] [place] [address] 08/10/2025 10:19:50 08/10/2025 13:54:24 [id number] Manfred Shelton MD Main Office [address] [place] , [place] [address] 08/11/2025 10:13:33 08/11/2025 14:13:40 Health Concerns Section Related Observation LastModified by Organization Detai ls LastModified Time None Recorded Concern Status LastModified by Organization Details LastModified Time None Recorded Payers Encounter Date Sequence Insurance Name Policy Number Policy Gonzales Covered Member ID Gonzales Member ID Guarantor Name 08/11/2025 2 [employer] [facility] Seema Delacruz [id number] Seema Delacruz 08/11/2025 1 [employer] Seema Delacruz [id number] Seema Delacruz OBGyn Episode No OBEpisode recorded.
--- OUTSIDE RECORDS SUMMARY | 2025-09-16 16:33 | XMS_ITS | Continuity of Care Document ---
Author Organization [place] [facility], Main Office Address [address] [place] [address] Care Team Providers Care Rib Sawyer Name Role Phone STEPHY YUSUF Primary Care [...] By Organization Details Last Modified Time 07/15/2025 5659 BACKGROUND: Seema Delacruz is a 55 y.o. [...] E11.621 ___ ___ Session Notes: Today's Date [id number] HBOT session 50 of 60 Next HBOT [id number] 30Jul - Patient cleared for 1st HBOT [...] antibiotics for an upper respiratory infection. Nicolasa [employer]ER 07Aug- Patient cleared for HBOT today. VS stable. PAtient had little trouble reaching pressure today, but had to come out of chamber early due to needing to use restroom. She managed to do 4 segs-118 minutes. [place].Tanner OPTION TRADER 08Aug - Patient cleared for HBOT today. VS stable. Patient completed full session with no problem. Antoinette Lau OPTION TRADER 11Aug - Patient cleared for HBOT today. [...] full session with no problem. Antoinette Lau OPTION TRADER 13Aug - Patient cleared for HBOT today. VS stable. Patient completed full session with no problem. Wound care to follow treatment today. Antoinette Lau APRN 14Aug - Patient cleared for HBOT today. VS stable. Patient completed full session with no problem. Antoinette Lau OPTION TRADER 15Aug - Patient cleared for HBOT today. [...] attempt to try again on Sunday. Nicolasa OPTION TRADER 18Aug - Patient cleared for HBOT today. VS stable. Patient completed full session with no problem. Antoinette Lau OPTION TRADER 19Aug - Patient deemed safe for HBOT [...] significant anxiety. Dressing change today per nursing. [facility] 25Aug - Patient deemed safe for [...] date andcompleted full session free of problem. [facility] 29Aug - Cleared for HBOT his date and completed full session free of problem. Of note, this patient continues to smoke tobacco cigarettes. [facility] 02Sep - Patient deemed safe for [...] above 80 and was discharged with 92. [facility] 08Sep - Patient deemed safe for HBOT today. VS stable. Patient completed full session with no problem. [place].Jessica Lau APRN 10Sep - Patient deemed safe for HBOT today. VS stable. Patient completed full session with no problem. Antoinette Lau APRN 11Sep - Patient cleared for HBOT today. VS stable. Patient completed full session with no problem. [place].Jessica Lau OPTION TRADER 12Sep - Found safe for HBOT this date. Completed curtailed session free of problem. Session shortened to satisfy demand of ride provider. [facility] 15Sep - Patient cleared for HBOT [...] full session with no problem. IsraelIlsa Lau OPTION TRADER 26Sep - Deemed safe for HBOT on this date and completed the full session uneventfully. [facility] 29Sep - Patient cleared for HBOT today. VS stable. Patient completed 3 Seg session with no problem. [place].MonicaDeepali Lau OPTION TRADER 30Sep - Patient cleared for HBOT today. VS stable. Patient completed full session with no problem. [place].Jessica Lau OPTION TRADER 01Oct - Patient cleared for HBOT today. VS stable. Patient completed full session with no problem. [place].MonicaDeepali Lau OPTION TRADER 02Oct - Cleared for HBOT this date and completed full session free of problem. [facility] 03Oct - Deemed safe for HBOT today and completed her full session without problem. [facility] 06Oct - Found safe for HBOT this date and tolerated her session free of problem. [facility] 07Oct- Cleared for HBOT this date and completed the full session without problem. [facility] 08Oct - Glu on arrival marginal so given caloric intake first and then cleared for HBOT this day. Had no problem completing full session emerging at Glu 139. [facility] 09Oct - Deemed safe for HBOT today and completed full session without problem. [facility] 14Oct - Patient returns after being out ill. Cleared for HBOT today. VS stable. Patient completed full session with no problem. IsraleIlsa Lau OPTION TRADER 15Oct - Patient cleared for HBOT today. VS stable. Patient completed full session with no problem. IsraelIlsa Lau OPTION TRADER Not available 07/15/2025 13:26:37 Reason for Referral None Reported. Problems Name Problem SNOMED Code Status Onset Date Resolution Date Notes Provider Name and Address Organization Details Recorded Time Upper respiratory infection [id number] Active 2024 COLEMAN LAU NP null, [place] [facility] 12:18:40 Episodic migraine [id number] Active 2024 COLEMAN LAU NP null, [place] [facility] 12:34:01 Type 2 diabetes mellitus 00904400 Active 2024 COLEMAN LAU NP null, [place] [facility] 15:27:12 Refractory migraine with aura [id number] Active 2024 COLEMAN LAU NP null, [place] [facility] 10:56:52 Recurrent acute frontal sinusitis Active 2024 COLEMAN LAU NP null, [place] [facility] 12:47:05 Candidiasis of vagina 80648933 Active 2024 COLEMAN LAU NP null, [place] [facility] 12:47:26 Acute upper respiratory infection 58180836 Active 2024 COLEMAN LAU NP null, [place] [facility] 12:32:57 Problem Notes None recorded. Procedures Surgical History Date Name Laterality Status Provider Name and Address Organization Details Recorded Time 09/15/20 [facility] Therapy Treatment Form completed [facility] - [facility] 09/15/2025 12:48:40 09/14/20 25 [facility] Therapy Treatment Form completed COLEMAN LAU NP [place] - [facility] 09/14/2025 14:54:43 09/07/20 25 [facility] Therapy Treatment Form completed [facility] - [facility] 09/07/2025 12:38:58 08/31/20 25 [facility] Therapy Treatment Form completed [facility] - [facility] 08/31/2025 12:48:46 08/25/20 25 [facility] Therapy Treatment Form completed [facility] - [facility] 08/25/2025 12:52:26 08/24/20 25 [facility] Therapy Treatment Form completed [facility] - [facility] 08/24/2025 12:53:43 08/17/20 25 [facility] Therapy Treatment Form completed [facility] - [facility] 08/17/2025 13:02:48 08/14/20 25 [facility] Therapy Treatment Form completed Lisa Sosa [place] - [facility] 08/14/2025 12:43:08 08/13/20 25 [facility] Therapy Treatment Form completed [facility] - [facility] 08/13/2025 12:27:58 08/12/20 25 [facility] Therapy Treatment Form completed [facility] - [facility] 08/12/2025 12:36:02 08/12/20 25 Wound completed COLEMAN LAU NP [place] - [facility] 08/12/2025 14:15:15 08/11/20 25 [facility] Therapy Treatment Form completed Carolyn roland [place] - [facility] 08/11/2025 12:58:18 08/10/20 25 [facility] Therapy Treatment Form completed [facility] - [facility] 08/10/2025 12:57:23 08/04/20 25 [facility] Therapy Treatment Form completed COLEMAN LAU NP [place] [facility] 08/04/2025 13:51:50 08/03/20 25 [facility] Therapy Treatment Form completed COLEMAN LAU NP [place] [facility] 08/03/2025 14:17:35 07/30/20 25 [facility] Therapy Treatment Form completed Carolyn roland [place] - [facility] 07/30/2025 12:38:27 07/29/20 25 [facility] Therapy Treatment Form completed [facility] - [facility] 07/29/2025 12:40:06 [...] Form completed [facility] - [facility] 07/23/2025 12:41:49 07/22/20 [facility] Therapy Treatment Form completed [facility] - [facility] 07/22/2025 12:53:32 07/21/20 25 [facility] Therapy Treatment Form completed [facility] - [facility] 07/21/2025 12:43:55 07/20/20 25 [facility] Therapy Treatment Form completed [facility] - [facility] 07/20/2025 12:58:21 [...] Form completed [facility] - [facility] 07/15/2025 12:39:29 07/14/20 25 [facility] Therapy Treatment Form completed COLEMAN LAU NP [place] [facility] 07/14/2025 15:14:39 07/09/20 25 [facility] Therapy Treatment Form completed [facility] - [facility] 07/09/2025 12:46:05 07/08/20 25 [facility] Therapy Treatment Form completed [facility] - [facility] 07/08/2025 12:41:28 07/07/20 25 [facility] Therapy Treatment Form completed Manfred Shelton MD [place] - [facility] 07/08/2025 08:10:21 07/06/20 25 [facility] Therapy Treatment Form completed [facility] - [facility] 07/06/2025 13:06:29 07/03/20 25 [facility] Therapy Treatment Form completed Paula Licea [place] - [facility] 07/03/2025 12:47:29 07/02/20 25 [facility] Therapy Treatment Form completed Paula Tadeoe [place] - [facility] 07/02/2025 13:06:39 07/01/20 25 [facility] Therapy Treatment Form completed Paula Licea [place] [facility] 07/01/2025 13:05:37 06/30/20 25 [facility] Therapy Treatment Form completed COLEMAN LAU NP [place] [facility] 06/30/2025 13:46:12 06/29/20 25 [facility] Therapy Treatment Form completed [facility] - [facility] 06/29/2025 13:24:58 06/26/20 25 [facility] Therapy Treatment Form completed Manfred Shelton MD [place] [facility] 06/26/2025 16:57:55 06/25/20 25 [facility] Therapy Treatment Form completed [facility] - [facility] 06/25/2025 12:47:07 06/24/20 25 [facility] Therapy Treatment Form completed [facility] - [facility] 06/24/2025 12:40:20 06/23/20 25 [facility] Therapy Treatment Form completed Carloyn sharp [place] - [facility] 06/23/2025 12:39:50 06/22/20 25 [facility] Therapy Treatment Form completed [facility] - [facility] 06/22/2025 12:49:55 06/19/20 25 [facility] Therapy Treatment Form completed Manfred Shelton MD [place] - [facility] 06/19/2025 14:13:24 06/18/20 25 [facility] Therapy Treatment Form completed COLEMAN LAU NP [place] [facility] 06/18/2025 13:17:34 06/17/20 25 [facility] Therapy Treatment Form completed [facility] - [facility] 06/17/2025 12:29:15 06/16/20 25 [facility] Therapy Treatment Form completed [facility] - [facility] 06/16/2025 12:45:53 06/15/20 25 [facility] Therapy Treatment Form completed [facility] - [facility] 06/15/2025 12:47:07 06/12/20 25 [facility] Therapy Treatment Form completed Manfred Shelton MD [place] - [facility] 06/12/2025 14:54:52 06/11/20 25 [facility] Therapy Treatment Form completed [facility] - [facility] 06/11/2025 13:02:39 06/10/20 25 [facility] Therapy Treatment Form completed [facility] - [facility] 06/10/2025 12:50:18 06/08/20 25 [facility] Therapy Treatment Form completed [facility] - [facility] 06/08/2025 12:56:07 06/05/20 25 [facility] Therapy Treatment Form completed Evelia Winters [place] - [facility] 06/05/2025 [...] Carolyn roland [place] - [facility] 06/02/2025 13:09:37 05/29/20 [...] Carolyn luan [place] - [facility] 05/26/2025 12:27:56 05/25/20 25 [facility] Therapy Treatment Form completed Carolyn luan [place] - [facility] 05/25/2025 13:12:32 05/22/20 [...] Oxygen Care Therapy Treatment Form completed Mary BENRAL - [facility] 05/12/2025 13:20:36 05/11/20 [...] [facility] Therapy Treatment Form completed aMry BERNAL - [facility] 05/06/2025 12:30:26 [...] Not available 04/23/2025 5640 RxNorm Luciana servin, [place] - [facility] 14:25:04 1102 Rocephin medicatio n Not available Not available Not available 04/23/2025 9449 RxNorm Luciana servin, [place] - [facility] 14:25:10 1103 Inapsine medicatio n Not available Not available Not available 04/23/2025 30614 3 RxNorm Luciana servin, [place] - [facility] 14:25:27 1104 Avelox medicatio n Not available Not available Not available 04/23/2025 01590 6 RxNorm Luciana servin, [place] - [facility] 14:25:52 1105 metformin medicatio n other Not available low 04/23/20252023 6809 RxNorm GI issue s Luciana servin, [place] - [facility] 14:26:11 1253 Product containin g angiotens in-conver ting enzyme inhibitor (product) medicatio n cough moderate Not available 06/26/2025 13957 009 SNOMED Not Available taisha - External Data Service - prod 5 10:54:20 1254 metformin hydrochlo ride medicatio n Not available Not available Not available 06/26/2025 92245 3 RxNorm Not Available taisha - External [...] medicatio n rash moderate Not available 07/15/2025 16591 2 RxNorm Not Available taisha - External Data Service - prod 10:18:57 1461 moxifloxa beck hydrochlo ride medicatio n Not available Not available Not available 08/24/20252015 44591 0 RxNorm Not Available taisha - External [...] [degF] 88 % 154/70 mm[Hg] 136/70 mm[Hg] [facility] - [facility] 5 12:39:45 Social [...] MD Main Office [address] [place] [address] 06/15/2025 10:50:33 06/15/2025 13:14:21 [id number] Manfred Shelton MD Main Office [address] [place] [address] 06/16/2025 10:14:56 06/16/2025 13:52:36 [id number] Manfred Shelton MD Main Office [address] [place] [address] 06/17/2025 10:28:52 06/17/2025 13:18:56 [id number] Manfred Shelton MD Main Office [address] [place] [address] 06/18/2025 10:16:09 06/18/2025 13:16:04 [id number] Manfred Shelton MD Main Office [address] [place] [address] 06/19/2025 10:44:19 06/19/2025 14:15:39 [id number] COLEMAN LAU NP Main Office [address] [place] [address] 06/22/2025 10:36:06 06/22/2025 14:32:28 [id number] Manfred Shelton MD Main Office [address] [place] [address] 06/23/2025 10:18:15 06/23/2025 14:03:00 [id number] Manfred Shelton MD Main Office [address] [place] [address] 06/24/2025 10:23:16 06/24/2025 13:37:08 [id number] Manfred Shelton MD Main Office [address] [place] [address] 06/25/2025 10:19:36 06/25/2025 14:27:35 [id number] Manfred Shelton MD Main Office [address] [place] [address] 06/26/2025 10:52:38 06/26/2025 16:27:47 [id number] Manfred Shelton MD Main Office [address] [place] [address] 06/29/2025 10:44:14 06/29/2025 13:39:12 [id number] Manfred Shelton MD Main Office [address] [place] [address] 06/30/2025 10:42:21 06/30/2025 13:46:39 [id number] Manfred Shelton MD Main Office [address] [place] [address] 07/01/2025 10:49:18 07/01/2025 13:25:24 [id number] Manfred Shelton MD Main Office [address] [place] [address] 07/02/2025 10:15:06 07/03/2025 07:21:23 [id number] Manfred Shelton MD Main Office [address] [place] [address] 07/03/2025 10:50:33 07/03/2025 17:53:35 [id number] Manfred Shelton MD Main Office [address] [place] [address] 07/06/2025 10:54:52 07/06/2025 14:37:01 [id number] Manfred Shelton MD Main Office [address] [place] [address] 07/07/2025 10:14:11 07/08/2025 08:12:24 [id number] Manfred Shelton MD Main Office [address] [place] [address] 07/08/2025 10:22:23 07/08/2025 19:57:51 [id number] Manfred Shelton MD Main Office [address] [place] [address] 07/09/2025 10:23:51 07/09/2025 16:04:46 [id number] Manfred Shelton MD Main Office [address] [address] 07/14/2025 10:06:05 07/14/2025 15:15:47 [id number] Manfred Shelton MD Main Office [address] [address] 07/15/2025 10:17:40 07/15/2025 13:26:46 [id number] Manfred Shelton MD Main Office [address] [place] [address] 07/15/2025 14:45:53 07/15/2025 14:48:12 Health Concerns Section Related Observation LastModified by Organization Detai ls LastModified Time None Recorded Concern Status LastModified by Organization Details LastModified Time None Recorded Payers Encounter Date Sequence Insurance Name Policy Number Policy Gonzales Covered Member ID Gonzales Member ID Guarantor Name 07/15/2025 2 [facility] Seema Delacruz [id number] Seema Delacruz 07/15/2025 1 ARCHANAA Seema Delacruz [id number] Seema Delacruz Notes Date Note Type Note Provider Name and Address Organization Details Recorded Time text/html Seema Delacruz is a 55 y.o. female who comes to see us today as a referral from Dr. Ortiz. to help assist with her wound care. Ms Delacruz has right foot Diabetic wounds, that are chronic and Vgea stage 3. She has difficulty staying off [...]
--- OUTSIDE RECORDS SUMMARY | 2025-09-16 16:33 | XMS_ITS | Continuity of Care Document ---
Author Organization [place] [facility], Main Office Address [address] [place] [address] Care Team Providers Care Manager Customs Name Role Phone STEPHY YUSUF Primary Care [...] By Organization Details Last Modified Time 06/17/2025 5320 BACKGROUND: Seema Delacruz is a 55 y.o. [...] E11.621 ___ ___ Session Notes: Today's Date [id number] HBOT session 32 of 40 Next HBOT [id number] 30Jul - Patient cleared for 1st HBOT [...] antibiotics for an upper respiratory infection. Nicolasa BICYCLE ASSEMBLER 07Aug- Patient cleared for HBOT today. VS stable. PAtient had little trouble reaching pressure today, but had to come out of chamber early due to needing to use restroom. She managed to do 4 segs-118 minutes. [place].Tanner BICYCLE ASSEMBLER 08Aug - Patient cleared for HBOT today. VS stable. Patient completed full session with no problem. Antoinette Lau BICYCLE ASSEMBLER 11Aug - Patient cleared for HBOT today. [...] full session with no problem. Antoinette Lau BICYCLE ASSEMBLER 13Aug - Patient cleared for HBOT today. VS stable. Patient completed full session with no problem. Wound care to follow treatment today. Antoinette Lau APRN 14Aug - Patient cleared for HBOT today. VS stable. Patient completed full session with no problem. Antoinette Lau BICYCLE ASSEMBLER 15Aug - Patient cleared for HBOT today. [...] attempt to try again on Sunday. Nicolasa BICYCLE ASSEMBLER 18Aug - Patient cleared for HBOT today. VS stable. Patient completed full session with no problem. Antoinette Lau BICYCLE ASSEMBLER 19Aug - Patient deemed safe for HBOT today. VS stable. FSBS within range. Patient completed full session with no problem. Antoinette Lau BICYCLE ASSEMBLER 2015Aug - Patient cleared for HBOT today. [...] significant anxiety. Dressing change today per nursing. [facility] 25Aug - Patient deemed safe for HBOT [...] date andcompleted full session free of problem. [facility] [place] 29Aug - Cleared for HBOT his date and completed full session free of problem. Of note, this patient continues to smoke tobacco cigarettes. [facility] [place] 02Sep - Patient deemed safe for HBOT [...] above 80 and was discharged with 92. [facility] [place] 08Sep - Patient deemed safe for HBOT today. VS stable. Patient completed full session with no problem. [place].MonicaDeepali Lau BICYCLE ASSEMBLER 10Sep - Patient deemed safe for HBOT today. VS stable. Patient completed full session with no problem. [place].MonicaDeepali Lau BICYCLE ASSEMBLER 11Sep - Patient cleared for HBOT today. VS stable. Patient completed full session with no problem. [place].Jessica Judi BICYCLE ASSEMBLER 12Sep - Found safe for HBOT this date. Completed curtailed session free of problem. Session shortened to satisfy demand of ride provider. [facility] [place] 15Sep - Patient cleared for HBOT today. VS stable. Patient completed full session with no problem. [place].MonicaDeepali Lau BICYCLE ASSEMBLER 16Sep - Patient cleared for HBOT today. VS stable. Patient completed full session with no problem. IsraelDeepaliMonicaDeepali Lau BICYCLE ASSEMBLER 17Sep - Patient cleared for HBOT today. VS stable. Patient completed full session with no problem. IsraelDeepaliMonicaDeepali Lau BICYCLE ASSEMBLER Not available 06/17/2025 13:18:42 Reason for Referral None Reported. Problems Name Problem SNOMED Code Status Onset Date Resolution Date Notes Provider Name and Address Organization Details Recorded Time Upper respiratory infection [id number] Active 2024 COLEMAN LAU NP null, [place] - [facility] 12:18:40 Episodic migraine 9207281787712 Active 2024 COLEMAN LAU NP null, [place] [facility] 12:34:01 Type 2 diabetes mellitus 82975604 Active 2024 COLEMAN LAU NP null, [place] [facility] 15:27:12 Refractory migraine with aura 003918172 Active 2024 COLEMAN LAU NP null, [place] [facility] 10:56:52 Recurrent acute frontal sinusitis Active 2024 COLEMAN LAU NP null, [place] [facility] 12:47:05 Candidiasis of vagina 20765536 Active 2024 COLEMAN LAU NP null, [place] [facility] 12:47:26 Acute upper respiratory infection 58481389 Active 2024 COLEMAN LAU NP null, [place] [facility] 12:32:57 Problem Notes None recorded. Procedures Surgical History Date Name Laterality Status Provider Name and Address Organization Details Recorded Time 09/15/20 [facility] Therapy Treatment Form completed [facility] - [facility] 09/15/2025 12:48:40 09/14/20 25 [facility] Therapy Treatment Form completed COLEMAN LAU NP [place] - [facility] 09/14/2025 14:54:43 09/07/20 25 [facility] Therapy Treatment Form completed [facility] - [facility] 09/07/2025 12:38:58 08/31/20 25 [facility] Therapy Treatment Form completed [facility] - [facility] 08/31/2025 12:48:46 08/25/20 25 [facility] Therapy Treatment Form completed [facility] - [facility] 08/25/2025 12:52:26 08/24/20 25 [facility] Therapy Treatment Form completed [facility] - [facility] 08/24/2025 12:53:43 08/17/20 25 [facility] Therapy Treatment Form completed [facility] - [facility] 08/17/2025 13:02:48 08/14/20 25 [facility] Therapy Treatment Form completed Lisa Sosa [place] - [facility] 08/14/2025 12:43:08 08/13/20 25 [facility] Therapy Treatment Form completed [facility] - [facility] 08/13/2025 12:27:58 08/12/20 25 [facility] Therapy Treatment Form completed [facility] - [facility] 08/12/2025 12:36:02 08/12/20 25 Wound completed COLEMAN LAU NP [place] - [facility] 08/12/2025 14:15:15 08/11/20 25 [facility] Therapy Treatment Form completed [facility] - [facility] 08/11/2025 12:58:18 08/10/20 25 [facility] Therapy Treatment Form completed [facility] - [facility] 08/10/2025 12:57:23 08/04/20 25 [facility] Therapy Treatment Form completed ABDOULAYE HAQ - [facility] 08/04/2025 13:51:50 08/03/20 25 [facility] Therapy Treatment Form completed COLEMAN LAU NP [place] - [facility] 08/03/2025 14:17:35 07/30/20 [facility] Therapy Treatment Form completed [facility] [place] - [facility] 07/30/2025 12:38:27 07/29/20 [facility] Therapy Treatment Form completed [facility] [place] - [facility] 07/29/2025 12:40:06 [...] [facility] Therapy Treatment Form completed [facility] - [facility] 07/23/2025 12:41:49 07/22/20 [facility] Therapy Treatment Form completed [facility] - [facility] 07/22/2025 12:53:32 07/21/20 [facility] Therapy Treatment Form completed [facility] [place] - [facility] 07/21/2025 12:43:55 07/20/20 [facility] Therapy Treatment Form completed [facility] - [facility] 07/20/2025 12:58:21 07/17/20 [facility] Therapy Treatment Form completed Lisa Sosa [place] - [facility] 07/17/2025 12:35:46 07/16/20 [facility] Therapy Treatment Form completed Frank Gage [place] - [facility] 07/16/2025 16:54:47 07/15/20 25 Wound completed COLEMAN LAU NP [place] [facility] 07/15/2025 14:47:28 07/15/20 25 [facility] Therapy Treatment Form completed [facility] - [facility] 07/15/2025 12:39:29 07/14/20 25 [facility] Therapy Treatment Form completed COLEMAN LAU NP [place] [facility] 07/14/2025 15:14:39 07/09/20 25 [facility] Therapy Treatment Form completed [facility] [place] - [facility] 07/09/2025 12:46:05 07/08/20 25 [facility] Therapy Treatment Form completed [facility] - [facility] 07/08/2025 12:41:28 07/07/20 25 [facility] Therapy Treatment Form completed Manfred Shelton MD [place] - [facility] 07/08/2025 08:10:21 07/06/20 25 [facility] Therapy Treatment Form completed [facility] - [facility] 07/06/2025 13:06:29 07/03/20 [...] [facility] Therapy Treatment Form completed [facility] - [facility] 06/29/2025 13:24:58 06/26/20 25 [facility] Therapy Treatment Form completed Manfred Shelton MD [place] - [facility] 06/26/2025 16:57:55 06/25/20 25 [facility] Therapy Treatment Form completed [facility] 06/25/2025 12:47:07 06/24/20 25 [facility] Therapy Treatment Form completed [facility] - [facility] 06/24/2025 12:40:20 06/23/20 25 [facility] Therapy Treatment Form completed [facility] - [facility] 06/23/2025 12:39:50 06/22/20 25 [facility] Therapy Treatment Form completed [facility] - [facility] 06/22/2025 12:49:55 06/19/20 25 [facility] Therapy Treatment Form completed Manfred Shelton MD [place] - [facility] 06/19/2025 14:13:24 06/18/20 25 [facility] Therapy Treatment Form completed COLEMAN LAU NP [place] - [facility] 06/18/2025 13:17:34 06/17/20 25 [facility] Therapy Treatment Form completed [facility] - [facility] 06/17/2025 12:29:15 06/16/20 25 [facility] Therapy Treatment Form completed [facility] - [facility] 06/16/2025 12:45:53 06/15/20 25 [facility] Therapy Treatment Form completed [facility] - [facility] 06/15/2025 12:47:07 06/12/20 25 [facility] Therapy Treatment Form completed Manfred Shelton MD [place] - [facility] 06/12/2025 14:54:52 06/11/20 25 [facility] Therapy Treatment Form completed [facility] - [facility] 06/11/2025 13:02:39 06/10/20 25 [facility] Therapy Treatment Form completed [facility] - [facility] 06/10/2025 12:50:18 06/08/20 25 [facility] Therapy Treatment Form completed [facility] - [facility] 06/08/2025 12:56:07 06/05/20 [...] Care Therapy Treatment Form completed Evelia Winters [place] - [facility] 06/03/2025 14:11:11 06/02/20 25 [facility] Therapy Treatment Form completed [facility] - [facility] 06/02/2025 13:09:37 05/29/20 25 [facility] Therapy Treatment Form completed [facility] - [facility] 05/29/2025 12:25:31 05/28/20 25 [facility] Therapy Treatment Form completed [facility] - [facility] 05/28/2025 13:02:44 05/27/20 25 Wound completed COLEMAN LAU NP [place] - [facility] 05/27/2025 13:18:22 05/27/20 25 [facility] Therapy Treatment Form completed [facility] - [facility] 05/27/2025 12:50:01 05/26/20 25 Nurse Note completed Luciana Hari [place] [facility] 05/26/2025 [...] Not available Not available 04/23/2025 5640 RxNorm DOLROES [place] - [facility] 14:25:04 1102 Rocephin medicatio n Not available Not available Not available 04/23/2025 9449 RxNorm Luciana servin, [place] - [facility] 5 14:25:10 1103 Inapsine medicatio n Not available Not available Not available 04/23/2025 07919 3 RxNorm Luciana servin, [place] - [facility] 5 14:25:27 1104 Avelox medicatio n Not available Not available Not available 04/23/2025 40208 6 RxNorm Luciana servin, [place] - [facility] 5 14:25:52 1105 metformin medicatio n other Not available low 04/23/20252023 6809 RxNorm GI issue s Luciana Noriega null, [place] - [facility] 14:26:11 1253 Product containin g angiotens in-conver ting enzyme inhibitor (product) medicatio n cough moderate Not available 06/26/2025 66792 009 SNOMED Not Available taisha - External Data Service - prod 5 10:54:20 1254 metformin hydrochlo ride medicatio n Not available Not available Not available 06/26/2025 11303 3 RxNorm Not Available taisha - External [...] medicatio n rash moderate Not available 07/15/2025 65911 2 RxNorm Not Available taisha - External Data Service - prod 10:18:57 1461 moxifloxa beck hydrochlo ride medicatio n Not available Not available Not available 08/24/20252015 12105 0 RxNorm Not Available taisha - External [...] /min 16 /min 98.2 [degF] 86 % 72 /min 16 /min 97.7 [degF] 92 % 171/79 mm[Hg] 161/82 mm[Hg] [facility] 5 12:29:32 Social History [...] [address] [place] , [place] [address] 05/18/2025 10:59:56 05/18/2025 15:48:37 Type 2 diabetes mellitus 81213368 E11.69 [id number] 4981 Manfred Shelton MD Main Office [address] [place] , [place] [address] 05/19/2025 11:07:27 05/19/2025 14:52:31 5002 Manfred Shelton MD Main Office [address] [place] , [place] [address] 05/20/2025 11:36:16 05/20/2025 13:20:26 5003 Manfred Shelton MD Main Office [address] [place] , [place] [address] 05/20/2025 12:28:38 05/20/2025 13:24:07 5019 Manfred Shelton MD Main Office [address] [place] , [place] [address] 05/21/2025 10:14:02 05/22/2025 08:40:53 5034 Manfred Shelton MD Main Office [address] [place] , [place] [address] 05/22/2025 10:05:00 05/22/2025 14:31:52 5054 COLEMAN LAU, PROFESSIONAL BUILDER Main Office [address] [place] , [place] [address] 05/25/2025 10:54:17 05/25/2025 14:23:41 5071 COLEMAN LAU, PROFESSIONAL BUILDER Main Office [address] [place] , [place] [address] 05/26/2025 10:04:52 05/26/2025 13:22:24 5083 COLEMAN LAU, PROFESSIONAL BUILDER Main Office [address] [place] , [place] [address] 05/26/2025 16:38:48 05/26/2025 16:40:45 5087 COLEMAN LAU PROFESSIONAL BUILDER Main Office [address] [place] [address] 05/27/2025 10:11:43 05/27/2025 13:22:20 5093 COLEMAN ABDOULAYE LAU Main Office [address] [place] [address] 05/27/2025 13:11:38 05/27/2025 13:19:10 5104 Manfred Shelton MD Main Office [address] [place] [address] 05/28/2025 10:14:13 05/29/2025 08:47:13 5117 Manfred Shelton MD Main Office [address] [place] [address] 05/29/2025 10:04:58 05/29/2025 17:43:48 5132 Manfred Shelton MD Main Office [address] [place] [address] 06/02/2025 10:25:50 06/02/2025 14:14:27 5149 Manfred Shelton MD Main Office [address] [place] [address] 06/03/2025 10:16:52 06/03/2025 14:45:20 5163 Manfred Shelton MD Main Office [address] [place] [address] 06/04/2025 10:31:23 06/04/2025 13:58:07 5173 Manfred Shelton MD Main Office [address] [place] [address] 06/04/2025 14:13:52 06/04/2025 14:25:08 5186 Manfred Shelton MD Main Office [address] [place] [address] 06/05/2025 10:55:07 06/05/2025 16:50:44 5202 Manfred Shelton MD Main Office [address] [place] [address] 06/08/2025 10:25:37 06/08/2025 14:39:12 5237 Manfred Shelton MD Main Office [address] [place] [address] 06/10/2025 10:19:13 06/10/2025 13:21:20 5255 Manfred Shelton MD Main Office [address] [place] [address] 06/11/2025 10:35:04 06/11/2025 14:11:07 5277 Manfred Shelton MD Main Office [address] [place] [address] 06/12/2025 10:59:45 06/12/2025 14:56:49 5293 Manfred Shelton MD Main Office [address] [place] [address] 06/15/2025 10:50:33 06/15/2025 13:14:21 5311 Manfred Shelton MD Main Office [address] [place] [address] 06/16/2025 10:14:56 06/16/2025 13:52:36 5329 Manfred Shelton MD Main Office [address] [place] [address] 06/17/2025 10:28:52 06/17/2025 13:18:56 Health Concerns Section Related Observation LastModified by Organization Detai ls LastModified Time None Recorded Concern Status LastModified by Organization Details LastModified Time None Recorded Payers Encounter Date Sequence Insurance Name Policy Number Policy Gonzales Covered Member ID Gonzales Member ID Guarantor Name 06/17/2025 2 [employer] Seema Delacruz [id number] Seema Delacruz 06/17/2025 1 [employer] Seema Delacruz [id number] Seema Delacruz OBGyn Episode No OBEpisode recorded.
--- OUTSIDE RECORDS SUMMARY | 2025-09-16 16:35 | XMS_ITS | Clinical Summary ---
Author Organization Healthcare Address [address] [place] [address] Care Team Providers Care Commercial Intelligence Manager Name Role Phone Faustino Amador MD Primary Care Provider + [phone] Allergies Active Allergy Reactions Criticality Noted Date [...] day. 10/10/19 Active Lancets (OneTouch Delica Plus Hoifpg13O) [facility] 07/11/20 Active Easy Comfort Pen [place] 31G X 5 MM [facility] 12/11/19 Active HumuLIN 70/30 KWIKPEN (70-30) 100 UNIT/ML injection 60 Units 2 (two) times a day before meals. 09/06/20 Active OneTouch Verio test strip 07/11/20 Active gabapentin (Neurontin) 400 MG capsule Take 1 capsule (400 mg) by mouth 4 (four) times a day. 11/21/19 Active cyclobenzaprine (Fexmid) 7.5 MG tablet every night. 10/28/19 Active Continuous Blood Gluc Sensor (FreeStyle Joelle 14 Day Sensor) [facility] 11/14/19 Active diclofenac (Voltaren) 75 MG EC [...] directed 10/29/19 24 Active ergocalciferol 1.25 MG (62154 UT) capsule Take 1 capsule every week by oral route for 90 days. 10/29/19 24 Active methocarbamol (Robaxin) 500 MG tablet 10/29/19 24 Active ondansetron ODT (Zofran-ODT) [address] 1 tablet every 4-6 hours by translingual route as needed. Active therapeutic multivitamin-plan examiner als (Theragran-M) tablet Take 1 tablet [...] (12/16/2021): Added automatically from request for surgery [id number] Microalbuminuria 03/12/2020 Cervical radiculopathy 11/22/2018 Neck pain [...] (05/24/2022): Added automatically from request for surgery [id number] Family History Medical History Relation Name Comments [...] drink first t debra in the morning (EYE-PSYCHIATRY TEACHER) to steady your nerves or to get [...] Health Maintenance Due Date Last Done Comments [facility]: Hemoglobin A1C 1969 [facility]-HIV Screening 1970 [...] of 2) 2019 [facility]-Depression Screening 11/12/2024 11/12/2023 [id number] Vaccine (3 - season) 2025 04/07/2021, 03/17/2021 [...] this topic Medical Devices Implanted Type Area E/M Engineer Device Identifier Shelf Expiration Date Model / Serial / Lot Pain Pump Pain Pump Right: Back Insurance [employer] MEDICAID A[employer] MEDICARE [employer] MEDICARE Advance Directives * Full Code (Latest Code Status on File) Date Activated Date Inactivated Comments 05/24/2022 4:10 PM 05/26/2022 3:36 PM Question Answer Comments Patient has decision-making capacity? Yes Care Teams Commercial Intelligence Manager Relationship Specialty Start Date End Date Faustino Amador MD [address] [place] [address] PCP - General 03/14/21
--- OUTSIDE RECORDS SUMMARY | 2025-09-16 16:36 | XMS_ITS | Encounter Summary ---
Author Organization Healthcare Address [address] [place] [address] Care Team Providers Care Gambreler Helper Name Role Phone Faustino Amador MD Primary Care Provider [phone] Reason for Referral * Consultation (Routine) - Closed Specialty Diagnoses / Procedures Referred By Betito carty Referred To Contact Plastic Surgery Diagnoses Excess skin Khurram Chanel APRN [address] [place] [address] Phone: tel: fax: Referral ID Status Reason Start Date Expiration Date V isits Requested Visits Authorized [id number] Closed Specialty Services Required 11/29/2021 05/31/2023 1 1 Encounter Details Date Type Department Care Team (Late st Contact Info) Description 11/29/2021 Community [facility] [address] [place] [address] Khurram Chanel APRN [address] [place] [address] Excess skin (Primary Dx) Social History Tobacco [...] Primary documented in this encounter Care Teams Gambreler Helper Relationship Specialty Start Date End Date Faustino Amador MD [address] [place] [address] PCP - General 03/14/21 documented as of this encounter
--- OUTSIDE RECORDS SUMMARY | 2025-09-16 16:36 | XMS_ITS | Continuity of Care Document ---
Author Organization [place] - [facility], Main Office Address [address] [place] [address] Care Team Providers Care Microstrategy Architect Developer Name Role Phone STEPHY YUSUF Primary [...] Modified By Organization Details Last Modified Time 08/17/2025 [id number] BACKGROUND: Seema Delacruz is a 55 y.o. [...] Diagnosis: L97.512, E11.621 Session Notes: Today's Date 17Aug2025 HBOT session 69 of 80 Next HBOT 18Aug2025 30Jul - Patient cleared for 1st HBOT [...] antibiotics for an upper respiratory infection. Nicolasa ACID PAINTER 07Aug- Patient cleared for HBOT today. VS stable. PAtient had little trouble reaching pressure today, but had to come out of chamber early due to needing to use restroom. She managed to do 4 segs-118 minutes. [place].Tanner ACID PAINTER 08Aug - Patient cleared for HBOT today. VS stable. Patient completed full session with no problem. Antoinette Lau ACID PAINTER 11Aug - Patient cleared for HBOT today. [...] full session with no problem. Antoinette Lau ACID PAINTER 13Aug - Patient cleared for HBOT today. VS stable. Patient completed full session with no problem. Wound care to follow treatment today. Antoinette Lau APRN 14Aug - Patient cleared for HBOT today. VS stable. Patient completed full session with no problem. Antoinette Lau ACID PAINTER 15Aug - Patient cleared for HBOT today. [...] attempt to try again on Sunday. Nicolasa ACID PAINTER 18Aug - Patient cleared for HBOT today. VS stable. Patient completed full session with no problem. Antoinette Lau ACID PAINTER 19Aug - Patient deemed safe for HBOT [...] significant anxiety. Dressing change today per nursing. [facility] 25Aug - Patient deemed safe for HBOT [...] this patient continues to smoke tobacco cigarettes. [facility] 02Sep - Patient deemed safe for HBOT [...] above 80 and was discharged with 92. [facility] 08Sep - Patient deemed safe for HBOT today. VS stable. Patient completed full session with no problem. [place].Jessica Lau APRN 10Sep - Patient deemed safe for HBOT today. VS stable. Patient completed full session with no problem. Antoinette Lau APRN 11Sep - Patient cleared for HBOT today. VS stable. Patient completed full session with no problem. Israel.Jessica Lau ACID PAINTER 12Sep - Found safe for HBOT this date. Completed curtailed session free of problem. Session shortened to satisfy demand of ride provider. [facility] 15Sep - Patient cleared for HBOT today. [...] full session with no problem. IsraelIlsa Lau ACID PAINTER 26Sep - Deemed safe for HBOT on this date and completed the full session uneventfully. [facility] 29Sep - Patient cleared for HBOT today. VS stable. Patient completed 3 Seg session with no problem. M.ADeepali Lau ACID PAINTER 30Sep - Patient cleared for HBOT today. VS stable. Patient completed full session with no problem. M.Jessica Lau ACID PAINTER 01Oct - Patient cleared for HBOT today. VS stable. Patient completed full session with no problem. M.Jessica Lau ACID PAINTER 02Oct - Cleared for HBOT this date and completed full session free of problem. [facility] 03Oct - Deemed safe for HBOT today and completed her full session without problem. [facility] 06Oct - Found safe for HBOT this date and tolerated her session free of problem. [facility] 07Oct- Cleared for HBOT this date and completed the full session without problem. [facility] 08Oct - Glu on arrival marginal so given caloric intake first and then cleared for HBOT this day. Had no problem completing full session emerging at Glu 139. [facility] 09Oct - Deemed safe for HBOT today and completed full session without problem. [facility] 14Oct - Patient returns after being out ill. Cleared for HBOT today. VS stable. Patient completed full session with no problem. Israel.Jessica Lau ACID PAINTER 15Oct - Patient cleared for HBOT today. VS stable. Patient completed full session with no problem. M.Jessica Lau ACID PAINTER 16Oct - Patient cleared for HBOT today. VS stable. Patient completed full session with no problem. M.Jessica Lau ACID PAINTER 17Oct - Patient cleared for HBOT today. VS stable. Patient completed full session with no problem. [place].Jessica Lau ACID PAINTER 20Oct - Patient an hour late today due to transportation company. She can only do an hour, or she will not have a ride back home. Cleared for HBOT, VS stable. Finished 1 hour session with no issues or complaints. M.Tanner ACID PAINTER 21Oct - Patient cleared for HBOT today. VS stable. Patient completed full session with no problem. M.ADeepali Lau ACID PAINTER 22Oct - Patient cleared for HBOT today. VS stable. Patient completed full session with no problem. M.Jessica Lau ACID PAINTER 23Oct - Patient cleared for HBOT today. VS stable. Patient completed full session with no problem. Antoinette Lau APRN 24Oct - Deemed safe for HBOT this date and did complete full session without problem. [facility] 27Oct - Patient cleared for HBOT today. [...] and completed full session free of problem. [facility] 31Oct - See E&M visit note 03Nov [...] reach 2.0 SANTY today with no issues. M.ADeepali Lau ACID PAINTER 05-07Nov - patient out ill - [facility] 10Nov - Patient deemed safe for HBOT today. VS stable. Patient completed full session with no issues or problem. [place].MonicaDeepali Lau ACID PAINTER 11Nov - Patient cleared for HBOT today. VS stable. Patient completed full session with no problem. [place].Jessica Judi ACID PAINTER 12Nov - Patient deemed safe for HBOT today. VS stable. Patient able to complete full session with no issues or problems. Wound care done after treatment today. [place].MonicaDeepali Lau ACID PAINTER 13Nov - Patient cleared for HBOT today. VS stable. Patient able to complete full session with no issues or problems. Israel.MonicaDeepali Lau ACID PAINTER 14Nov - Deemed safe for HBOT today and completed full session uneventfully. Additional care: [id number] for DX L97.512 and Ell.621 - Following [...] nor deeper tissue infection. Patient states her signals intelligence analyst, Dr Ortiz, has already ordered MRI but [...] with no issues or problems. IsraelDeepaliMonicaDeepali Lau ACID PAINTER Not available 08/17/2025 13:48:45 Reason for Referral None Reported. Results Created Date Observation Date Name Description Value Unit Range Abnormal Flag Note LastModifiedBy Organization Detail LastModifiedTime 07/20/2007/20/2025 HbA1c (hemo globi n A1c), blood HbA1C 7.2 Not Available Not Availa ble 07/21/2025 10:12:48 Result Notes None recorded. Problems Name Problem SNOMED Code Status Onset Date Resolution Date Notes Provider Name and Address Organization Details Recorded Time Upper respiratory infection 35682280 Active 2024 COLEMAN LAU CAT DOG OR OTHER PET GROOMER null, [place] - [facility] 12:18:40 Episodic migraine 2495061673807 Active 2024 COLEMAN LAU CAT DOG OR OTHER PET GROOMER null, [place] - [facility] 12:34:01 Type 2 diabetes mellitus 60848763 Active 2024 COLEMAN LAU CAT DOG OR OTHER PET GROOMER null, [place] - [facility] 15:27:12 Refractory migraine with aura 984315011 Active 2024 COLEMAN LAU CAT DOG OR OTHER PET GROOMER null, [place] - [facility] 10:56:52 Recurrent acute frontal sinusitis Active 2024 COLEMAN LAU CAT DOG OR OTHER PET GROOMER null, [place] - [facility] 12:47:05 Candidiasis of vagina 38296790 Active 2024 COLEMANPATRICE LAU CAT DOG OR OTHER PET GROOMER null, [place] - [facility] 12:47:26 Acute upper respiratory infection 81999703 Active 2024 COLEMAN LAU NP null, [place] [...] Care Therapy Treatment Form completed Carolyn roland [place] - [facility] 08/25/2025 12:52:26 08/24/20 25 [facility] Therapy Treatment Form completed [facility] - [facility] 08/24/2025 12:53:43 08/17/20 25 [facility] Therapy Treatment Form completed Carolyn roland [place] - [facility] 08/17/2025 13:02:48 08/14/20 25 [facility] Therapy Treatment Form completed Lisa Sosa [place] - [facility] 08/14/2025 12:43:08 08/13/20 25 [facility] Therapy Treatment Form completed Carolyn roland [place] - [facility] 08/13/2025 12:27:58 08/12/20 25 [facility] Therapy Treatment Form completed Carolyn luan [place] - [facility] 08/12/2025 12:36:02 08/12/20 25 Wound completed COLEMAN LAU NP [place] - [facility] 08/12/2025 14:15:15 08/11/20 25 [facility] Therapy Treatment Form completed Carolyn luan [place] - [facility] 08/11/2025 12:58:18 08/10/20 25 [facility] Therapy Treatment Form completed Carolyn roland [place] - [facility] 08/10/2025 12:57:23 08/04/20 25 [facility] Therapy Treatment Form completed COLEMAN LAU NP [place] - [facility] 08/04/2025 13:51:50 08/03/20 25 [facility] Therapy Treatment Form completed ABDOULAYE [facility] - [facility] 08/03/2025 14:17:35 07/30/20 25 [facility] Therapy Treatment Form completed Carolyn roland [place] - [facility] 07/30/2025 12:38:27 07/29/20 25 [facility] Therapy Treatment Form completed Carolyn roland [place] - [facility] 07/29/2025 12:40:06 07/28/20 25 [facility] Therapy Treatment Form completed ABDOULAYE HAQ - [facility] 07/28/2025 13:56:37 07/27/20 25 [facility] Therapy Treatment Form completed ABDOULAYE [facility] - [facility] 07/27/2025 13:59:51 07/24/20 25 [facility] Therapy Treatment Form completed Manfred Shelton, [place] - [facility] 07/24/2025 17:57:20 07/23/20 25 [facility] Therapy Treatment Form completed Carolyn roland [place] - [facility] 07/23/2025 12:41:49 07/22/20 25 [facility] Therapy Treatment Form completed Carolyn roland [place] - [facility] 07/22/2025 12:53:32 07/21/20 25 [facility] Therapy Treatment Form completed Carolyn roland [place] - [facility] 07/21/2025 12:43:55 07/20/20 25 [facility] Therapy Treatment Form completed Carolyn luan [place] - [facility] 07/20/2025 12:58:21 07/17/20 [...] Care Therapy Treatment Form completed Carolyn roland [place] - [facility] 07/15/2025 12:39:29 07/14/20 25 [facility] Therapy Treatment Form completed COLEMAN LAU NP [place] - [facility] 07/14/2025 15:14:39 07/09/20 25 [facility] Therapy Treatment Form completed Carolyn roland [place] - [facility] 07/09/2025 12:46:05 07/08/20 25 [facility] Therapy Treatment Form completed Carolyn roland [place] - [facility] 07/08/2025 12:41:28 07/07/20 25 [facility] Therapy Treatment Form completed Manfred Shelton [place] - [facility] 07/08/2025 08:10:21 07/06/20 25 [facility] Therapy Treatment Form completed Carolyn roland [place] - [facility] 07/06/2025 13:06:29 07/03/20 25 [facility] Therapy Treatment Form completed Paula Licea [place] - [facility] 07/03/2025 12:47:29 07/02/20 25 [facility] Therapy Treatment Form completed Paula Licea [place] - [facility] 07/02/2025 13:06:39 07/01/20 25 [facility] Therapy Treatment Form completed Paula Licea [place] - [facility] 07/01/2025 13:05:37 06/30/20 25 [facility] Therapy Treatment Form completed COLEMAN LAU NP [place] - [facility] 06/30/2025 13:46:12 06/29/20 25 [facility] Therapy Treatment Form completed [facility] - [facility] 06/29/2025 13:24:58 06/26/20 25 [facility] Therapy Treatment Form completed Manfred Shelton [place] - [facility] 06/26/2025 16:57:55 06/25/20 25 [facility] Therapy Treatment Form completed [facility] 06/25/2025 12:47:07 06/24/20 25 [facility] Therapy Treatment Form completed [facility] 06/24/2025 12:40:20 06/23/20 25 [facility] Therapy Treatment Form completed [facility] 06/23/2025 12:39:50 06/22/20 25 [facility] Therapy Treatment Form completed [facility] 06/22/2025 12:49:55 06/19/20 25 [facility] Therapy Treatment Form completed Manfred Shelton [place] - [facility] 06/19/2025 14:13:24 06/18/20 25 [facility] Therapy Treatment Form completed COLEMAN LAU NP [place] - [facility] 06/18/2025 13:17:34 06/17/20 25 [facility] Therapy Treatment Form completed [facility] - [facility] 06/17/2025 12:29:15 06/16/20 25 [facility] Therapy Treatment Form completed [facility] 06/16/2025 12:45:53 06/15/20 25 [facility] Therapy Treatment Form completed [facility] 06/15/2025 12:47:07 06/12/20 25 [facility] Therapy Treatment Form completed Manfred Shelton [place] - [facility] 06/12/2025 14:54:52 06/11/20 25 [facility] Therapy Treatment Form completed [facility] 06/11/2025 13:02:39 06/10/20 25 [...] Care Therapy Treatment Form completed Carolyn roland [place] - [facility] 05/21/2025 12:47:49 05/20/20 25 Wound completed COLEMAN JUDI, CAT DOG OR OTHER PET GROOMER [place] - [facility] 05/20/2025 13:22:44 [...] Not available Not available Not available 04/23/2025 20843 3 RxNorm Luciana servin, [place] - [facility] 14:25:27 1104 Avelox medicatio n Not available Not available Not available 04/23/2025 66385 6 RxNorm Luciana servin, [place] - [facility] 14:25:52 1105 metformin medicatio n other Not available low 04/23/20252023 6809 RxNorm GI issue [place] - [facility] 14:26:11 1253 Product containin g angiotens in-conver ting enzyme inhibitor (product) medicatio n cough moderate Not available 06/26/2025 60363 009 SNOMED Not Available taisha [employer] - prod 5 10:54:20 1254 metformin hydrochlo ride medicatio n Not available Not available Not available 06/26/2025 58226 3 RxNorm Not Available taisha [employer] - prod 5 10:54:20 1358 ceftriaxo ne medicatio n rash moderate Not available 07/15/2025 2193 RxNorm Not Available taisha [employer] - prod 5 10:18:57 1359 droperido l medicatio n dyspnea Not available Not available 07/15/2025 3648 RxNorm Not Available taisha [employer] - prod 5 10:18:57 1360 moxifloxa beck medicatio n rash moderate Not available 07/15/2025 98779 2 RxNorm Not Available taisha [employer] - prod 5 10:18:57 1461 moxifloxa beck hydrochlo ride medicatio n Not available Not available Not available 08/24/20252015 25381 0 RxNorm Not Available taisha [employer] - prod 5 04:35:37 Medications [...] Updated DateTime 5 80 /min 16 /min 98.4 [degF] 92 % 73 /min 16 /min 98.2 [degF] 93 % 186/93 mm[Hg] 152/78 mm[Hg] [facility] - [facility] 5 13:03:05 Social History None recorded. Functional Status None [...] ICD10 Code Diagnosis IMO Codes Diagnosis Note [id number] Manfred Shelton MD Main Office [address] [place] [address] 07/17/2025 10:06:47 07/17/2025 14:10:36 Refractory migraine with aura 178596106 G43.407 [id number] Manfred Shelton MD Main Office [address] [place] [address] 07/20/2025 11:09:11 07/20/2025 14:45:37 [id number] Manfred Shelton MD Main Office [address] [place] [address] 07/21/2025 10:11:12 07/21/2025 12:49:36 [id number] Manfred Shelton MD Main Office [address] [place] [address] 07/22/2025 10:10:07 07/22/2025 13:11:46 [id number] Manfred Shelton MD Main Office [address] [place] [address] 07/23/2025 10:48:45 07/23/2025 15:03:21 [id number] Manfred Shelton MD Main Office [address] [place] [address] 07/24/2025 10:18:12 07/24/2025 17:58:24 [id number] Manfred Shelton MD Main Office [address] [place] [address] 07/27/2025 10:15:44 07/27/2025 14:05:56 [id number] Manfred Shelton MD Main Office [address] [place] [address] 07/28/2025 10:36:12 07/28/2025 13:58:27 [id number] Manfred Shelton MD Main Office [address] [place] [address] 07/29/2025 10:14:56 07/29/2025 13:38:02 [id number] Manfred Shelton MD Main Office [address] [place] [address] 07/30/2025 10:32:11 07/31/2025 08:45:48 [id number] Manfred Shelton MD Main Office [address] [place] [address] 08/01/2025 08:56:19 08/01/2025 09:05:22 [id number] Manfred Shelton MD Main Office [address] [place] [address] 08/03/2025 10:12:43 08/03/2025 14:18:16 [id number] Manfred Shelton MD Main Office [address] [place] [address] 08/04/2025 10:18:33 08/04/2025 13:52:38 [id number] Manfred Shelton MD Main Office [address] [place] [address] 08/10/2025 10:19:50 08/10/2025 13:54:24 [id number] Manfred Shelton MD Main Office [address] [place] [address] 08/11/2025 10:13:33 08/11/2025 14:13:40 [id number] Manfred Shelton MD Main Office [address] [place] [address] 08/12/2025 10:17:32 08/12/2025 14:16:09 [id number] Manfred Shelton MD Main Office [address] [place] [address] 08/13/2025 09:43:21 08/13/2025 15:50:31 [id number] Manfred Shelton MD Main Office [address] [place] [address] 08/14/2025 10:42:31 08/14/2025 19:25:25 [id number] Manfred Shelton MD Main Office [address] [place] [address] 08/17/2025 10:11:40 08/17/2025 13:45:10 Health Concerns Section Related Observation LastModified by Organization Detai ls LastModified Time None Recorded Concern Status LastModified by Organization Details LastModified Time None Recorded Payers Encounter Date Sequence Insurance Name Policy Number Policy Gonzales Covered Member ID Gonzales Member ID Guarantor Name 08/17/2025 2 [employer] Seema Delacruz [id number] Seema Delacruz 08/17/2025 1 [employer] Seema Delacruz [id number] Seema Delacruz OBGyn Episode No OBEpisode recorded.
--- OUTSIDE RECORDS SUMMARY | 2025-09-16 16:36 | XMS_ITS | Continuity of Care Document ---
Author Organization [place] [facility], Main Office Address [address] [place] [address] Care Team Providers Care Practice Consultant Name Role Phone STEPHY YUSUF Primary [...] Modified By Organization Details Last Modified Time 07/14/2025 5619 BACKGROUND: Seema Delacruz is a 55 y.o. [...] E11.621 ___ ___ Session Notes: Today's Date [id number] HBOT session 49 of 60 Next HBOT [id number] 30Jul - Patient cleared for 1st HBOT [...] antibiotics for an upper respiratory infection. Nicolasa MINERALOGY PROFESSOR 07Aug- Patient cleared for HBOT today. VS stable. PAtient had little trouble reaching pressure today, but had to come out of chamber early due to needing to use restroom. She managed to do 4 segs-118 minutes. [place].Tanner MINERALOGY PROFESSOR 08Aug - Patient cleared for HBOT today. VS stable. Patient completed full session with no problem. Antoinette Lau MINERALOGY PROFESSOR 11Aug - Patient cleared for HBOT today. [...] full session with no problem. Antoinette Lau MINERALOGY PROFESSOR 13Aug - Patient cleared for HBOT today. VS stable. Patient completed full session with no problem. Wound care to follow treatment today. Antoinette Lau APRN 14Aug - Patient cleared for HBOT today. VS stable. Patient completed full session with no problem. Antoinette Lau MINERALOGY PROFESSOR 15Aug - Patient cleared for HBOT today. [...] attempt to try again on Sunday. Nicolasa MINERALOGY PROFESSOR 18Aug - Patient cleared for HBOT today. VS stable. Patient completed full session with no problem. Antoinette Lau MINERALOGY PROFESSOR 19Aug - Patient deemed safe for HBOT [...] significant anxiety. Dressing change today per nursing. [facility] [place] - Patient deemed safe for HBOT [...] date andcompleted full session free of problem. [facility] 29Aug - Cleared for HBOT his date and completed full session free of problem. Of note, this patient continues to smoke tobacco cigarettes. [facility] 02Sep - Patient deemed safe for HBOT [...] above 80 and was discharged with 92. [facility] 08Sep - Patient deemed safe for HBOT today. VS stable. Patient completed full session with no problem. [place].Jessica Lau APRN 10Sep - Patient deemed safe for HBOT today. VS stable. Patient completed full session with no problem. Antoinette Lau APRN 11Sep - Patient cleared for HBOT today. VS stable. Patient completed full session with no problem. [place].Jessica Lau MINERALOGY PROFESSOR 12Sep - Found safe for HBOT this date. Completed curtailed session free of problem. Session shortened to satisfy demand of ride provider. [facility] 15Sep - Patient cleared for HBOT today. [...] full session with no problem. [place].Jessica Judi MINERALOGY PROFESSOR 26Sep - Deemed safe for HBOT on this date and completed the full session uneventfully. [facility] 29Sep - Patient cleared for HBOT today. VS stable. Patient completed 3 Seg session with no problem. [place].Jessica Judi MINERALOGY PROFESSOR 30Sep - Patient cleared for HBOT today. VS stable. Patient completed full session with no problem. Antoinette Judi MINERALOGY PROFESSOR 01Oct - Patient cleared for HBOT today. VS stable. Patient completed full session with no problem. [place].Jessica SotoMaxwell MINERALOGY PROFESSOR 02Oct - Cleared for HBOT this date and completed full session free of problem. [facility] 03Oct - Deemed safe for HBOT today and completed her full session without problem. [facility] 06Oct - Found safe for HBOT this date and tolerated her session free of problem. [facility] 07Oct- Cleared for HBOT this date and completed the full session without problem. [facility] 08Oct - Glu on arrival marginal so given caloric intake first and then cleared for HBOT this day. Had no problem completing full session emerging at Glu 139. [facility] 09Oct - Deemed safe for HBOT today and completed full session without problem. [facility] 14Oct - Patient returns after being out ill. Cleared for HBOT today. VS stable. Patient completed full session with no problem. Antoinette Sotowood MINERALOGY PROFESSOR Not available 07/14/2025 15:15:40 Reason for Referral None Reported. Problems Name Problem SNOMED Code Status Onset Date Resolution Date Notes Provider Name and Address Organization Details Recorded Time Upper respiratory infection [id number] Active 2024 COLEMAN LAU NP null, [place] [facility] 12:18:40 Episodic migraine [id number] Active 2024 COLEMAN LAU NP null, [place] [facility] 12:34:01 Type 2 diabetes mellitus 08796818 Active 2024 COLEMAN LAU NP null, [place] [facility] 15:27:12 Refractory migraine with aura 606149827 Active 2024 COLEMAN LAU NP null, [place] [facility] 09/04/202 5 10:56:52 Recurrent acute frontal sinusitis Active 2024 COLEMAN LAU NP null, [place] [facility] 12:47:05 Candidiasis of vagina 48579010 Active 2024 COLEMAN LAU NP null, [place] [facility] 12:47:26 Acute upper respiratory infection 90645503 Active 2024 COLEMAN LAU NP null, [place] [facility] 12:32:57 Problem Notes None recorded. Procedures Surgical History Date Name Laterality Status Provider Name and Address Organization Details Recorded Time 09/15/20 25 [facility] Therapy Treatment Form completed Carolyn luan PA - [facility] 09/15/2025 12:48:40 09/14/20 25 [facility] Therapy Treatment Form completed COLEMAN LAU NP [place] - [facility] 09/14/2025 14:54:43 09/07/20 25 [facility] Therapy Treatment Form completed [facility] - [facility] 09/07/2025 12:38:58 08/31/20 25 [facility] Therapy Treatment Form completed [facility] - [facility] 08/31/2025 12:48:46 08/25/20 25 [facility] Therapy Treatment Form completed [facility] - [facility] 08/25/2025 12:52:26 08/24/20 25 [facility] Therapy Treatment Form completed [facility] - [facility] 08/24/2025 12:53:43 08/17/20 25 [facility] Therapy Treatment Form completed [facility] - [facility] 08/17/2025 13:02:48 08/14/20 25 [facility] Therapy Treatment Form completed Lisa Sosa [place] - [facility] 08/14/2025 12:43:08 08/13/20 25 [facility] Therapy Treatment Form completed [facility] - [facility] 08/13/2025 12:27:58 08/12/20 25 [facility] Therapy Treatment Form completed [facility] - [facility] 08/12/2025 12:36:02 08/12/20 25 Wound completed COLEMAN LAU NP [place] [facility] 08/12/2025 14:15:15 08/11/20 25 [facility] Therapy Treatment Form completed [facility] - [facility] 08/11/2025 12:58:18 08/10/20 [facility] Therapy Treatment Form completed [...] Carolyn roland PA - [facility] 07/29/2025 12:40:06 07/28/20 [...] Carolyn roland PA - [facility] 07/23/2025 12:41:49 07/22/20 [facility] Therapy Treatment Form completed Carolyn roland PA - [facility] 07/22/2025 12:53:32 07/21/20 [facility] Therapy Treatment Form completed Carolyn roland PA - [facility] 07/21/2025 12:43:55 07/20/20 [facility] Therapy Treatment Form completed Carolyn roland PA - [facility] 07/20/2025 12:58:21 07/17/20 [...] completed Carolyn BERNAL - [facility] 07/15/2025 12:39:29 07/14/20 25 [facility] Therapy Treatment Form completed COLEMAN LAU NP [place] [facility] 07/14/2025 15:14:39 07/09/20 25 [facility] Therapy Treatment Form completed Carolyn roland [place] - [facility] 07/09/2025 12:46:05 07/08/20 25 [facility] Therapy Treatment Form completed Carolyn luan PA - [facility] 07/08/2025 12:41:28 07/07/20 25 [facility] Therapy Treatment Form completed Manfred Shelton MD [place] - [facility] 07/08/2025 08:10:21 07/06/20 25 [facility] Therapy Treatment Form completed Carolyn roland PA - [facility] 07/06/2025 13:06:29 07/03/20 25 [facility] Therapy Treatment Form completed Paula Licea PA - [facility] 07/03/2025 12:47:29 07/02/20 25 [facility] Therapy Treatment Form completed Paula Licea PA - [facility] 07/02/2025 13:06:39 07/01/20 25 [facility] Therapy Treatment Form completed Paula Licea PA - [facility] 07/01/2025 13:05:37 06/30/20 25 [facility] Therapy Treatment Form completed COLEMAN LAU NP PA - [facility] 06/30/2025 13:46:12 06/29/20 25 [facility] Therapy Treatment Form completed Carolyn luan BERNAL - [facility] 06/29/2025 13:24:58 06/26/20 25 [facility] Therapy Treatment Form completed Manfred Shelton MD [place] - [facility] 06/26/2025 16:57:55 06/25/20 25 [facility] Therapy Treatment Form completed Carolyn roland PA - [facility] 06/25/2025 12:47:07 06/24/20 25 [facility] Therapy Treatment Form completed Carolyn luan PA - [facility] 06/24/2025 12:40:20 06/23/20 25 [facility] Therapy Treatment Form completed Carolyn luan PA - [facility] 06/23/2025 12:39:50 06/22/20 25 [facility] Therapy Treatment Form completed [facility] - [facility] 06/22/2025 12:49:55 06/19/20 25 [facility] Therapy Treatment Form completed Manfred Shelton [place] [facility] 06/19/2025 14:13:24 06/18/20 25 [facility] Therapy Treatment Form completed COLEMAN LAU NP [place] [facility] 06/18/2025 13:17:34 06/17/20 25 [facility] Therapy Treatment Form completed [facility] - [facility] 06/17/2025 12:29:15 06/16/20 25 [facility] Therapy Treatment Form completed [facility] - [facility] 06/16/2025 12:45:53 06/15/20 25 [facility] Therapy Treatment Form completed [facility] - [facility] 06/15/2025 12:47:07 06/12/20 25 [facility] Therapy Treatment Form completed Manfred Shelton MD [place] - [facility] 06/12/2025 14:54:52 06/11/20 25 [facility] Therapy Treatment Form completed [facility] - [facility] 06/11/2025 13:02:39 06/10/20 25 [facility] Therapy Treatment Form completed [facility] - [facility] 06/10/2025 12:50:18 06/08/20 25 [facility] Therapy Treatment Form completed [facility] - [facility] 06/08/2025 12:56:07 06/05/20 25 [facility] Therapy Treatment Form completed Eveliashaggy Winters PA - [facility] 06/05/2025 14:28:16 06/04/20 25 Wound completed COLEMAN LAU NP [place] [facility] 06/04/2025 14:24:29 06/04/20 25 [facility] Therapy Treatment Form completed ABDOULAYE HAQ - [facility] 06/04/2025 13:56:49 06/03/20 25 [facility] Therapy Treatment Form completed Evelia Winters PA - [facility] 06/03/2025 14:11:11 06/02/20 25 [facility] Therapy Treatment Form completed [facility] - [facility] 06/02/2025 13:09:37 05/29/20 25 [facility] Therapy Treatment Form completed [facility] - [facility] 05/29/2025 12:25:31 [...] Care 05/14/2025 13:46:28 05/13/20 25 Wound completed COELMAN LAU NP [place] [facility] [...] Not available Not available Not available 04/23/2025 65203 3 RxNorm Luciana Noriega null, [place] - [facility] 14:25:27 1104 Avelox medicatio n Not available Not available Not available 04/23/2025 61939 6 RxNorm Luciana Noriega null, [place] - [facility] 5 14:25:52 1105 metformin medicatio n other Not available low 04/23/20252023 6809 RxNorm GI issue s Luciana Noriega null, [place] - [facility] 14:26:11 1253 Product containin g angiotens in-conver ting enzyme inhibitor (product) medicatio n cough moderate Not available 06/26/2025 72077 009 SNOMED Not Available tasiha - [employer] - prod 5 10:54:20 1254 metformin hydrochlo ride medicatio n Not available Not available Not available 06/26/2025 84313 3 RxNorm Not Available taisha - External [...] medicatio n rash moderate Not available 07/15/2025 53648 2 RxNorm Not Available taisha - [employer] - prod 5 10:18:57 1461 moxifloxa beck hydrochlo ride medicatio n Not available Not available Not available 08/24/20252015 58073 0 RxNorm Not Available [employer] - prod 5 04:35:37 [...] Updated DateTime 5 80 /min 16 /min 98.2 [degF] 88 % 133/74 mm[Hg] COLEMAN LAU NP [place] [facility] 5 15:14:12 Date Recorded Heart rate Respiratory rate Body temperature Oxygen saturation Systolic And Diastolic Provider Name and Address Organization Details Last Updated DateTime 5 85 /min 16 /min 98.2 [degF] 96 % 163/79 mm[Hg] Carolyn roland [place] - [facility] 5 10:28:19 Social History None recorded. Functional Status None [...] MD Main Office [address] [place] [address] 06/15/2025 10:50:33 06/15/2025 13:14:21 [id number] Manfred Shelton MD Main Office [address] [place] [address] 06/16/2025 10:14:56 06/16/2025 13:52:36 [id number] Manfred Shelton MD Main Office [address] [place] [address] 06/17/2025 10:28:52 06/17/2025 13:18:56 [id number] Manfred Shelton MD Main Office [address] [place] [address] 06/18/2025 10:16:09 06/18/2025 13:16:04 [id number] Manfred Shelton MD Main Office [address] [place] [address] 06/19/2025 10:44:19 06/19/2025 14:15:39 [id number] COLEMAN LAU NP Main Office [address] [place] [address] 06/22/2025 10:36:06 06/22/2025 14:32:28 [id number] Manfred Shelton MD Main Office [address] [place] [address] 06/23/2025 10:18:15 06/23/2025 14:03:00 [id number] Manfred Shelton MD Main Office [address] [place] [address] 06/24/2025 10:23:16 06/24/2025 13:37:08 [id number] Manfred Shelton MD Main Office [address] [place] [address] 06/25/2025 10:19:36 06/25/2025 14:27:35 [id number] Manfred Shelton MD Main Office [address] [place] [address] 06/26/2025 10:52:38 06/26/2025 16:27:47 [id number] Manfred Shelton MD Main Office [address] [place] [address] 06/29/2025 10:44:14 06/29/2025 13:39:12 [id number] Manfred Shelton MD Main Office [address] [place] [address] 06/30/2025 10:42:21 06/30/2025 13:46:39 [id number] Manfred Shelton MD Main Office [address] [place] [address] 07/01/2025 10:49:18 07/01/2025 13:25:24 [id number] Manfred Shelton MD Main Office [address] [place] [address] 07/02/2025 10:15:06 07/03/2025 07:21:23 [id number] Manfred Shelton MD Main Office [address] [place] [address] 07/03/2025 10:50:33 07/03/2025 17:53:35 [id number] Manfred Shelton MD Main Office [address] [place] [address] 07/06/2025 10:54:52 07/06/2025 14:37:01 5575 Manfred Shelton MD Main Office [address] [place] [address] 07/07/2025 10:14:11 07/08/2025 08:12:24 [id number] Manfred Shelton MD Main Office [address] [place] [address] 07/08/2025 10:22:23 07/08/2025 19:57:51 [id number] Manfred Shelton MD Main Office [address] [place] [address] 07/09/2025 10:23:51 07/09/2025 16:04:46 [id number] Manfred Shelton MD Main Office [address] [address] [place] [address] 07/14/2025 10:06:05 07/14/2025 15:15:47 Health Concerns Section Related Observation LastModified by Organization Detai ls LastModified Time None Recorded Concern Status LastModified by Organization Details LastModified Time None Recorded Payers Encounter Date Sequence Insurance Name Policy Number Policy Gonzales Covered Member ID Gonzales Member ID Guarantor Name 07/14/2025 2 [employer] Seema Delacruz [id number] Seema Delacruz 07/14/2025 1 [employer] Seema Delacruz [id number] Seema Delacruz OBGyn Episode No OBEpisode recorded.
--- OUTSIDE RECORDS SUMMARY | 2025-09-16 16:37 | XMS_ITS | Clinical Summary ---
Author Organization [facility] Address [address] [place] [address] Phone Care Team Providers Care Metal Furniture Assembler Name Role Phone Unavailable Primary Care [...] Impressions 11/19/2023 7:29 AM EST Benign finding ([id number]) ~ RECOMMENDATION: Routine screening mammogram in 1 [...] the next mammogram, in accordance with the [employer] and the Society of Breast Imaging recommendations. Narrative 11/19/2023 7:29 AM EST Procedure:MM MAMMO DIGITAL EULALIA SCREEN BILAT ~ Reason for exam: screening, asymptomatic. Z12.31-Encounter for screening mammogram for malignant neoplasm of [id number] ~ MM MAMMO DIGITAL EULALIA SCREEN BILAT [...] for screening mammogram for malignant neoplasm of [id number] ~ MM MAMMO DIGITAL EULALIA SCREEN BILAT [...] evidence of malignancy. ~ IMPRESSION: Benign finding ([id number]) ~ RECOMMENDATION: Routine screening mammogram in 1 [...] the next mammogram, in accordance with the [employer] and the Society of Breast Imaging recommendations. us Not In [facility] Provider IMG MAMMOGRAPHY ORDERABLES Final Result from Last 3 Months or Most Recently Relevant to Health Maintenance [place] [address] [place] [address] [employer] HMO
--- OUTSIDE RECORDS SUMMARY | 2025-09-16 16:37 | XMS_ITS | Continuity of Care Document ---
Author Organization [place] [facility], Main Office Address [address] [place] [address] Care Team Providers Care Banana Grader Name Role Phone STEPHY YUSUF Primary Care [...] By Organization Details Last Modified Time 06/19/2025 2091 BACKGROUND: Seema Delacruz is a 55 y.o. [...] HBOT session 34 of 40 Next HBOT [id number] 30Jul - Patient cleared for 1st HBOT [...] full session with no problem. Antoinette Lau [employer] 04Aug - Patient deemed safe for HBOT [...] antibiotics for an upper respiratory infection. Nicolasa [employer] 07Aug- Patient cleared for HBOT today. VS stable. PAtient had little trouble reaching pressure today, but had to come out of chamber early due to needing to use restroom. She managed to do 4 segs-118 minutes. [place].Tanner [employer] 08Aug - Patient cleared for HBOT today. VS stable. Patient completed full session with no problem. Antoinette Lau [employer] 11Aug - Patient cleared for HBOT today. [...] full session with no problem. Antoinette Lau [employer] 13Aug - Patient cleared for HBOT today. VS stable. Patient completed full session with no problem. Wound care to follow treatment today. Antoinette Lau APRN 14Aug - Patient cleared for HBOT today. VS stable. Patient completed full session with no problem. Antoinette Lau [employer] 15Aug - Patient cleared for HBOT today. [...] attempt to try again on Sunday. Nicolasa [employer] 18Aug - Patient cleared for HBOT today. VS stable. Patient completed full session with no problem. Antoinette Lau [employer] 19Aug - Patient deemed safe for HBOT today. VS stable. FSBS within range. Patient completed full session with no problem. Antoinette Lau [employer] 2015Aug - Patient cleared for HBOT today. [...] significant anxiety. Dressing change today per nursing. [place] 25Aug - Patient deemed safe for HBOT [...] date andcompleted full session free of problem. [place] 29Aug - Cleared for HBOT his date and completed full session free of problem. Of note, this patient continues to smoke tobacco cigarettes. [place] 02Sep - Patient deemed safe for HBOT today. VS stable. Patient completed full session with no problem. Antoinetet Lau APRN 03Sep - Patient deemed safe [...] above 80 and was discharged with 92. [place] 08Sep - Patient deemed safe for HBOT today. VS stable. Patient completed full session with no problem. IsraelDeepaliJessica Judi [employer] 10Sep - Patient deemed safe for HBOT today. VS stable. Patient completed full session with no problem. IsraelDeepaliJessica Judi [employer] 11Sep - Patient cleared for HBOT today. VS stable. Patient completed full session with no problem. Antoinette Sotowood [employer] 12Sep - Found safe for HBOT this date. Completed curtailed session free of problem. Session shortened to satisfy demand of ride provider. [place] 15Sep - Patient cleared for HBOT today. VS stable. Patient completed full session with no problem. IsraelDeepaliMonicaDeepali Lau APRN 16Sep - Patient cleared for HBOT today. VS stable. Patient completed full session with no problem. IsraelDeepaliMonicaDeepali Lau [employer] 17Sep - Patient cleared for HBOT today. VS stable. Patient completed full session with no problem. [place].Jessica Judi [employer] 18Sep - Patient cleared for HBOT today. [...] full session with no problem. IsraelDeepaliMonicaDeepali Lau [employer] 19Sep - today patient arrived with suitable Glu so was cleared to proceed with HBOT taking a Glu Gel into chamber with her. She experienced no problem in chamber so completed full session, emerging with a border line safe Glu. She took snack items with her as she was to proceed to another medical appointment. [place] [email or web address] Not available 06/19/2025 14:15:32 Reason for Referral None Reported. Problems Name Problem SNOMED Code Status Onset Date Resolution Date Notes Provider Name and Address Organization Details Recorded Time Upper respiratory infection 31294771 Active 2024 COLEMAN LAU NP null, [place] - [facility] 12:18:40 Episodic migraine 6477950060333 06 Active 2024 COLEMAN LAU NP null, [place] - [facility] 12:34:01 Type 2 diabetes mellitus 07314295 Active 2024 COLEMAN LAU NP null, [place] - [facility] 15:27:12 Refractory migraine with aura 320069400 Active 2024 COLEMAN LAU NP null, [place] [facility] 10:56:52 Recurrent acute frontal sinusitis Active 2024 COLEMAN LAU NP null, [place] [facility] 12:47:05 Candidiasis of vagina 78832206 Active 2024 COLEMAN LAU NP null, [place] - [facility] 12:47:26 Acute upper respiratory infection 75316921 Active 2024 COLEMAN LAU NP null, [place] - [facility] 12:32:57 Problem Notes None recorded. Procedures Surgical History Date Name Laterality Status Provider Name and Address Organization Details Recorded Time 09/15/20 25 [facility] Therapy Treatment Form completed [facility] - [facility] 09/15/2025 12:48:40 09/14/20 25 [facility] Therapy Treatment Form completed COLEMAN LAU NP [place] - [facility] 09/14/2025 14:54:43 09/07/20 25 [facility] Therapy Treatment Form completed [facility] - [facility] 09/07/2025 12:38:58 08/31/20 25 [facility] Therapy Treatment Form completed [facility] - [facility] 08/31/2025 12:48:46 08/25/20 25 [facility] Therapy Treatment Form completed [facility] - [facility] 08/25/2025 12:52:26 08/24/20 25 [facility] Therapy Treatment Form completed [facility] - [facility] 08/24/2025 12:53:43 08/17/20 25 [facility] Therapy Treatment Form completed [facility] - [facility] 08/17/2025 13:02:48 08/14/20 25 [facility] Therapy Treatment Form completed Lisa Sosa [place] - [facility] 08/14/2025 12:43:08 08/13/20 25 [facility] Therapy Treatment Form completed Carolyn sharp [place] - [facility] 08/13/2025 12:27:58 08/12/20 25 [facility] Therapy Treatment Form completed [facility] - [facility] 08/12/2025 12:36:02 08/12/20 25 Wound completed COLEMAN LAU NP [place] - [facility] 08/12/2025 14:15:15 08/11/20 25 [facility] Therapy Treatment Form completed [facility] - [facility] 08/11/2025 12:58:18 08/10/20 25 [facility] Therapy Treatment Form completed [facility] - [facility] 08/10/2025 [...] [facility] 07/30/2025 12:38:27 07/29/20 25 [facility] Therapy Treatment Form completed [facility] - [facility] 07/29/2025 12:40:06 07/28/20 [...] [facility] 07/23/2025 12:41:49 07/22/20 25 [facility] Therapy Treatment Form completed [facility] - [facility] 07/22/2025 12:53:32 07/21/20 25 [facility] Therapy Treatment Form completed [facility] - [facility] 07/21/2025 12:43:55 07/20/20 25 [facility] Therapy Treatment Form completed [facility] - [facility] 07/20/2025 [...] Care Therapy Treatment Form completed Craolyn roland [place] - [facility] 05/28/2025 [...] Carolyn roland [place] - [facility] 05/25/2025 13:12:32 05/22/20 [...] procedure on integumentary system completed Luciana Noriega [place] - [facility] 04/23/2025 14:33:00 cataract [...] Not available Not available Not available 04/23/2025 73570 3 RxNorm Luciana servin[place] - [facility] 14:25:27 1104 Avelox medicatio n Not available Not available Not available 04/23/2025 71245 6 RxNorm [place] servin[place] - [facility] 14:25:52 1105 metformin medicatio n other Not available low 04/23/20252023 6809 RxNorm GI issue s Luciana Noriega null, [place] - [facility] 14:26:11 1253 Product containin g angiotens in-conver ting enzyme inhibitor (product) medicatio n cough moderate Not available 06/26/2025 02006 009 SNOMED Not Available taisha - [employer] - prod 5 10:54:20 1254 metformin hydrochlo ride medicatio n Not available Not available Not available 06/26/2025 64622 3 RxNorm Not Available taisha - [employer] - [employer] 5 10:54:20 1358 ceftriaxo ne medicatio n rash moderate Not available 07/15/2025 2193 RxNorm Not Available [employer] 5 10:18:57 1359 droperido l medicatio n dyspnea Not available Not available 07/15/2025 3648 RxNorm Not Available taisha [facility] [employer] 10:18:57 1360 moxifloxa beck medicatio n rash moderate Not available 07/15/2025 37376 2 RxNorm Not Available taisha [facility] [employer] 10:18:57 1461 moxifloxa beck hydrochlo ride medicatio n Not available Not available Not available 08/24/20252015 77247 0 RxNorm Not Available [employer] 04:35:37 Medications Name Sig Start Date Stop [...] rate Respiratory rate Body temperature Oxygen saturation Respiratory rate Heart rate Body temperature Oxygen saturation Systolic And Diastolic Systolic And Diastolic Provider Name and Address Organization Details Last Updated DateTime 5 73 /min 16 /min 97.9 [degF] 91 % 16 /min 66 /min 97.2 [degF] 92 % 153/70 mm[Hg] 140/71 mm[Hg] Mary [...] MD Main Office [address] [place] [address] 05/19/2025 11:07:27 05/19/2025 14:52:31 [id number] Manfred Shelton MD Main Office [address] [place] [address] 05/20/2025 11:36:16 05/20/2025 13:20:26 5003 Manfred Shelton MD Main Office [address] [place] [address] 05/20/2025 12:28:38 05/20/2025 13:24:07 [id number] Manfred Shelton MD Main Office [address] [place] [address] 05/21/2025 10:14:02 05/22/2025 08:40:53 [id number] Manfred Shelton MD Main Office [address] [place] [address] 05/22/2025 10:05:00 05/22/2025 14:31:52 5054 COLEMAN LAU NP Main Office [address] [place] [address] 05/25/2025 10:54:17 05/25/2025 14:23:41 [id number] COLEMAN LAU, [employer] WORKER Main Office [address] [place] [address] 05/26/2025 10:04:52 05/26/2025 13:22:24 5083 COLEMAN LAU, [employer] WORK[employer] Main Office [address] [place] [address] 05/26/2025 16:38:48 05/26/2025 16:40:45 [id number] COLEMAN LAU, [employer] WORK[employer] Main Office [address] [place] [address] 05/27/2025 10:11:43 05/27/2025 13:22:20 5093 COLEMAN LAU, [employer] WORK[employer] Main Office [address] [place] [address] 05/27/2025 13:11:38 05/27/2025 13:19:10 5104 Manfred Shelton MD Main Office [address] [place] [address] 05/28/2025 10:14:13 05/29/2025 08:47:13 [id number] Manfred Shelton MD Main Office [address] [place] [address] 05/29/2025 10:04:58 05/29/2025 17:43:48 [id number] Manfred Shelton MD Main Office [address] [place] [address] 06/02/2025 10:25:50 06/02/2025 14:14:27 [id number] Manfred Shelton MD Main Office [address] [place] [address] 06/03/2025 10:16:52 06/03/2025 14:45:20 [id number] Manfred Shelton MD Main Office [address] [place] [address] 06/04/2025 10:31:23 06/04/2025 13:58:07 [id number] Manfred Shelton MD Main Office [address] [place] [address] 06/04/2025 14:13:52 06/04/2025 14:25:08 [id number] Manfred Shelton MD Main Office [address] [place] [address] 06/05/2025 10:55:07 06/05/2025 16:50:44 5202 Manfred Shelton MD Main Office [address] [place] [address] 06/08/2025 10:25:37 06/08/2025 14:39:12 [id number] Manfred Shelton MD Main Office [address] [place] [address] 06/10/2025 10:19:13 06/10/2025 13:21:20 [id number] Manfred Shelton MD Main Office [address] [place] [address] 06/11/2025 10:35:04 06/11/2025 14:11:07 [id number] Manfred Shelton MD Main Office [address] [place] [address] 06/12/2025 10:59:45 06/12/2025 14:56:49 [id number] Manfred Shelton MD Main Office [address] [place] [address] 06/15/2025 10:50:33 06/15/2025 13:14:21 [id number] Manfred Shelton MD Main Office [address] [place] [address] 06/16/2025 10:14:56 06/16/2025 13:52:36 [id number] Manfred Shelton MD Main Office [address] [place] [address] 06/17/2025 10:28:52 06/17/2025 13:18:56 [id number] Manfred Shelton MD Main Office [address] [place] [address] 06/18/2025 10:16:09 06/18/2025 13:16:04 [id number] Manfred Shelton MD Main Office [address] [place] [address] 06/19/2025 10:44:19 06/19/2025 14:15:39 Health Concerns Section Related Observation LastModified by Organization Detai ls LastModified Time None Recorded Concern Status LastModified by Organization Details LastModified Time None Recorded Payers Encounter Date Sequence Insurance Name Policy Number Policy Gonzales Covered Member ID Gonzales Member ID Guarantor Name 06/19/2025 2 [employer] Seema Delacruz [id number] Seema Delacruz 06/19/2025 1 [employer] Seema Delacruz [id number] Seema Delacruz OBGyn Episode No OBEpisode recorded.
--- OUTSIDE RECORDS SUMMARY | 2025-09-16 16:37 | XMS_ITS | Continuity of Care Document ---
Author Organization [place] - [facility], Main Office Address [address] [place] [address] Care Team Providers Care Dry Cell And Battery Assembler Name Role Phone STEPHY YUSUF Primary [...] Modified By Organization Details Last Modified Time 08/13/2025 2545 BACKGROUND: Seema Delacruz is a 55 y.o. [...] Diagnosis: L97.512, E11.621 Session Notes: Today's Date 13Aug2025 HBOT session 67 of 80 Next HBOT 14Aug2025 30Jul - Patient cleared for 1st HBOT [...] antibiotics for an upper respiratory infection. Nicolasa CLAY PIGEON LOADER 07Aug- Patient cleared for HBOT today. VS stable. PAtient had little trouble reaching pressure today, but had to come out of chamber early due to needing to use restroom. She managed to do 4 segs-118 minutes. [place].Tanner C[employer] P[employer] LOADER 08Aug - Patient cleared for HBOT today. VS stable. Patient completed full session with no problem. Antoinette Lau C[employer] P[employer] LOADER 11Aug - Patient cleared for HBOT today. [...] full session with no problem. Antoinette Lau C[employer] LOADER 13Aug - Patient cleared for HBOT today. VS stable. Patient completed full session with no problem. Wound care to follow treatment today. Antoinette Lau APRN 14Aug - Patient cleared for HBOT today. VS stable. Patient completed full session with no problem. Antoinette Lau [employer]ER 15Aug - Patient cleared for HBOT today. [...] attempt to try again on Sunday. Nicolasa C[employer] P[employer] LOADER 18Aug - Patient cleared for HBOT today. VS stable. Patient completed full session with no problem. Antoinette Lau [employer]ER 19Aug - Patient deemed safe for HBOT [...] full session with no problem. [place].Jessica Lau C[employer] LOADER 12Sep - Found safe for HBOT this [...] full session with no problem. IsraelIlsa Lau C[employer] P[employer] LOADER 26Sep - Deemed safe for HBOT on this date and completed the full session uneventfully. [facility] [place] - Patient cleared for HBOT today. VS stable. Patient completed 3 Seg session with no problem. M.ADeepali Lau C[employer] P[employer] LOADER 30Sep - Patient cleared for HBOT today. VS stable. Patient completed full session with no problem. M.Jessica Lau [employer]ER 01Oct - Patient cleared for HBOT today. VS stable. Patient completed full session with no problem. M.Jessica Lau C[employer] P[employer] LOADER 02Oct - Cleared for HBOT this date and completed full session free of problem. [facility] [place] 03Oct - Deemed safe for HBOT today and completed her full session without problem. [facility] [place] 06Oct - Found safe for HBOT this date and tolerated her session free of problem. [facility] [place] 07Oct- Cleared for HBOT this date and completed the full session without problem. [facility] [place] 08Oct - Glu on arrival marginal so given caloric intake first and then cleared for HBOT this day. Had no problem completing full session emerging at Glu 139. [facility] [place] 09Oct - Deemed safe for HBOT today and completed full session without problem. [facility] [place] 14Oct - Patient returns after being out ill. Cleared for HBOT today. VS stable. Patient completed full session with no problem. [place].Jessica Lau [employer] LO[employer]ER 15Oct - Patient cleared for HBOT today. VS stable. Patient completed full session with no problem. M.Jessica Lau C[employer] LO[employer]ER 16Oct - Patient cleared for HBOT today. VS stable. Patient completed full session with no problem. M.Jessica Lau [employer] LO[employer]ER 17Oct - Patient cleared for HBOT today. VS stable. Patient completed full session with no problem. [place].Jessica Lau [employer] LOADER 20Oct - Patient an hour late today due to transportation company. She can only do an hour, or she will not have a ride back home. Cleared for HBOT, VS stable. Finished 1 hour session with no issues or complaints. M.Tanner C[employer] P[employer]ON LOADER 21Oct - Patient cleared for HBOT today. VS stable. Patient completed full session with no problem. M.ADeepali Lau [employer] LO[employer]ER 22Oct - Patient cleared for HBOT today. VS stable. Patient completed full session with no problem. M.Jessica Lau [employer]ER 23Oct - Patient cleared for HBOT today. VS stable. Patient completed full session with no problem. Antoinette Lau APRN 24Oct - Deemed safe for HBOT this date and did complete full session without problem. [facility] [place] 27Oct - Patient cleared for HBOT today. [...] and completed full session free of problem. [facility] [place] 31Oct - See E&M visit note 03Nov [...] SANTY today with no issues. Antoinette Sotowood C[employer] P[employer]ON LOADER 05-07Nov - patient out ill - STEAR[facility] 10Nov - Patient deemed safe for HBOT today. VS stable. Patient completed full session with no issues or problem. Antoinette Sotowood C[employer] LOADER 11Nov - Patient cleared for HBOT today. VS stable. Patient completed full session with no problem. Antoinette Sotowood C[employer] P[employer] LOADER 12Nov - Patient deemed safe for HBOT today. VS stable. Patient able to complete full session with no issues or problems. Wound care done after treatment today. Antoinette Sotowood C[employer] P[employer] LOADER 13Nov - Patient cleared for HBOT today. VS stable. Patient able to complete full session with no issues or problems. Antoinette Sotowood C[employer] P[employer]ON LOADER Not available 08/13/2025 15:50:24 Reason for Referral None Reported. Results Created [...] Organization Details Recorded Time Upper respiratory infection 19823167 Active 2024 COLEMAN LAU NP null, [place] - [facility] 12:18:40 Episodic migraine [id number] 06 Active 2024 COLEMAN LAU NP null, [place] [facility] 12:34:01 Type 2 diabetes mellitus 40394715 Active 2024 COLEMAN LAU NP null, [place] [facility] 15:27:12 Refractory migraine with aura 050871981 Active 2024 COLEMAN LAU NP null, [place] [facility] 10:56:52 Recurrent acute frontal sinusitis Active 2024 COLEMAN LAU NP null, [place] [facility] 12:47:05 Candidiasis of vagina 51599761 Active 2024 COLEMAN LAU NP null, [place] - [facility] 12:47:26 Acute upper respiratory infection 59642715 Active 2024 COLEMAN LAU NP malathi [place] - [facility] 12:32:57 Problem Notes None recorded. Procedures Surgical History Date Name Laterality Status Provider Name and Address Organization Details Recorded Time 09/15/20 25 [facility] Therapy Treatment Form completed Carolyn roland [place] - [facility] 09/15/2025 12:48:40 09/14/20 25 [facility] Therapy Treatment Form completed COLEMAN LAU NP [place] - [facility] 09/14/2025 14:54:43 09/07/20 25 [facility] Therapy Treatment Form completed Carolyn roland [place] - [facility] 09/07/2025 12:38:58 08/31/20 25 [facility] Therapy Treatment Form completed Carolyn roland [place] - [facility] 08/31/2025 12:48:46 08/25/20 25 [facility] Therapy Treatment Form completed Carolyn roland [place] - [facility] 08/25/2025 12:52:26 08/24/20 25 [facility] Therapy Treatment Form completed Carolyn roland [place] - [facility] 08/24/2025 12:53:43 08/17/20 25 [facility] Therapy Treatment Form completed Carolyn luan [place] - [facility] 08/17/2025 13:02:48 08/14/20 25 [facility] Therapy Treatment Form completed Lisa Sosa [place] - [facility] 08/14/2025 12:43:08 08/13/20 25 [facility] Therapy Treatment Form completed Carolyn roland [place] - [facility] 08/13/2025 12:27:58 08/12/20 25 [facility] Therapy Treatment Form completed Carolyn BERNAL - [facility] 08/12/2025 12:36:02 08/12/20 25 Wound completed COLEMAN LAU NP [place] - [facility] 08/12/2025 14:15:15 08/11/20 25 [facility] Therapy Treatment Form completed Carolyn roland [place] - [facility] 08/11/2025 12:58:18 08/10/20 25 [facility] Therapy Treatment Form completed Carolyn roland [place] - [facility] 08/10/2025 12:57:23 08/04/20 25 [facility] Therapy Treatment Form completed COLEMAN LAU NP [place] - [facility] 08/04/2025 13:51:50 11/03/20 25 [facility] Therapy Treatment Form completed COLEMAN LAU NP [place] - [facility] 08/03/2025 14:17:35 07/30/20 [facility] Therapy Treatment Form completed [facility] - [facility] 07/30/2025 12:38:27 07/29/20 [facility] Therapy Treatment Form completed [facility] - [facility] 07/29/2025 [...] [facility] Therapy Treatment Form completed [facility] - [facility] 07/23/2025 12:41:49 07/22/20 [facility] Therapy Treatment Form completed [facility] - [facility] 07/22/2025 12:53:32 07/21/20 [facility] Therapy Treatment Form completed [facility] - [facility] 07/21/2025 12:43:55 07/20/20 [facility] Therapy Treatment Form completed [facility] - [facility] 07/20/2025 [...] [facility] Therapy Treatment Form completed [facility] - [facility] 07/15/2025 12:39:29 07/14/20 25 [facility] Therapy Treatment Form completed COLEMAN LAU NP [place] - [facility] 07/14/2025 15:14:39 07/09/20 25 [facility] Therapy Treatment Form completed Carolyn sharp [place] - [facility] 07/09/2025 12:46:05 07/08/20 25 [facility] Therapy Treatment Form completed Carolyn roland [place] - [facility] 07/08/2025 12:41:28 07/07/20 25 [facility] Therapy Treatment Form completed Manfred Shelton MD [place] - [facility] 07/08/2025 08:10:21 07/06/20 25 [facility] Therapy Treatment Form completed Carolyn roland [place] - [facility] 07/06/2025 13:06:29 07/03/20 [...] Care Therapy Treatment Form completed Carolyn roland [place] - [facility] 06/29/2025 13:24:58 06/26/20 25 [facility] Therapy Treatment Form completed Manfred Shelton MD [place] - [facility] 06/26/2025 16:57:55 06/25/20 25 [facility] Therapy Treatment Form completed Carolyn roland [place] - [facility] 06/25/2025 12:47:07 06/24/20 25 [facility] Therapy Treatment Form completed [facility] - [facility] 06/24/2025 12:40:20 06/23/20 25 [facility] Therapy Treatment Form completed Carolyn luan [place] - [facility] 06/23/2025 12:39:50 06/22/20 25 [facility] Therapy Treatment Form completed Carolyn luan [place] - [facility] 06/22/2025 12:49:55 06/19/20 25 [facility] Therapy Treatment Form completed Manfred Shelton MD [place] [facility] 06/19/2025 14:13:24 06/18/20 25 [facility] Therapy Treatment Form completed COLEMAN LAU NP [place] - [facility] 06/18/2025 13:17:34 06/17/20 25 [facility] Therapy Treatment Form completed [facility] - [facility] 06/17/2025 12:29:15 06/16/20 25 [facility] Therapy Treatment Form completed [facility] - [facility] 06/16/2025 12:45:53 06/15/20 25 [facility] Therapy Treatment Form completed [facility] - [facility] 06/15/2025 12:47:07 06/12/20 25 [facility] Therapy Treatment Form completed Manfred Shelton MD [place] - [facility] 06/12/2025 14:54:52 06/11/20 25 [facility] Therapy Treatment Form completed [facility] - [facility] 06/11/2025 13:02:39 06/10/20 25 [facility] Therapy Treatment Form completed [facility] - [facility] 06/10/2025 12:50:18 06/08/20 25 [facility] Therapy Treatment Form completed [facility] - [facility] 06/08/2025 12:56:07 06/05/20 25 [facility] Therapy Treatment Form completed Evelia Marinahiram [place] [facility] 06/05/2025 14:28:16 06/04/20 25 Wound completed COLEMAN LAU NP [place] - [facility] 06/04/2025 14:24:29 06/04/20 25 [facility] Therapy Treatment Form completed COLEMAN LAU NP [place] - [facility] 06/04/2025 13:56:49 06/03/20 25 [facility] Therapy Treatment Form completed Eveliashaggy Winters [place] - [facility] 06/03/2025 14:11:11 06/02/20 25 [facility] Therapy Treatment Form completed [facility] - [facility] 06/02/2025 13:09:37 05/29/20 25 [facility] Therapy Treatment Form completed [facility] - [facility] 05/29/2025 12:25:31 05/28/20 25 [facility] Therapy Treatment Form completed [facility] - [facility] 05/28/2025 13:02:44 05/27/20 25 Wound completed COLEMAN LAU NP [place] - [facility] 05/27/2025 13:18:22 05/27/20 25 [facility] Therapy Treatment Form completed Carolyn sharp [place] - [facility] 05/27/2025 12:50:01 [...] Not available Not available Not available 04/23/2025 40550 3 RxNorm Luciana Noriega null, [place] - [facility] 5 14:25:27 1104 Avelox medicatio n Not available Not available Not available 04/23/2025 63980 6 RxNorm Luciana Noriega null, [place] - [facility] 5 14:25:52 1105 metformin medicatio n other Not available low 04/23/20252023 6809 RxNorm GI issue s Luciana Noriega null, [place] - [facility] 5 14:26:11 1253 Product containin g angiotens in-conver ting enzyme inhibitor (product) medicatio n cough moderate Not available 06/26/2025 14510 009 SNOMED Not Available taisha - External Data Service - prod 5 10:54:20 1254 metformin hydrochlo ride medicatio n Not available Not available Not available 06/26/2025 27922 3 RxNorm Not Available taisha - External [...] medicatio n rash moderate Not available 07/15/2025 84184 2 RxNorm Not Available taisha - External Data Service - prod 5 10:18:57 1461 moxifloxa beck hydrochlo ride medicatio n Not available Not available Not available 08/24/20252015 78340 0 RxNorm Not Available taisha - External [...] Address Organization Details Last Updated DateTime 5 68 /min 16 /min 98.8 [degF] 93 % 65 /min 16 /min 98.1 [degF] 91 % 151/85 mm[Hg] 149/79 mm[Hg] [facility] - [facility] 5 12:28:12 Social History None recorded. Functional Status None [...] [address] [place] [address] 07/14/2025 10:06:05 07/14/2025 15:15:47 [id number] Manfred Shelton MD Main Office [address] [place] [address] 07/15/2025 10:17:40 07/15/2025 13:26:46 [id number] Manfred Shelton MD Main Office [address] [place] [address] 07/15/2025 14:45:53 07/15/2025 14:48:12 [id number] Manfred Shelton MD Main Office [address] [place] [address] 07/16/2025 10:18:19 07/16/2025 14:20:47 [id number] Manfred Shelton MD Main Office [address] [facility] [place] [address] 07/17/2025 10:06:47 07/17/2025 14:10:36 Refractory migraine with aura [id number] G43.546 [id number] Manfred Shelton MD Main Office [address] [place] , [place] [address] 07/20/2025 11:09:11 07/20/2025 14:45:37 [id number] Manfred Shelton MD Main Office [address] [place] [address] 07/21/2025 10:11:12 07/21/2025 12:49:36 [id number] Manfred Shelton MD Main Office [address] [place] , [place] [address] 07/22/2025 10:10:07 07/22/2025 13:11:46 [id number] Manfred Shelton MD Main Office [address] [place] , [place] [address] 07/23/2025 10:48:45 07/23/2025 15:03:21 [id number] Manfred Shelton MD Main Office [address] [place] [address] 07/24/2025 10:18:12 07/24/2025 17:58:24 [id number] Manfred Shelton MD Main Office [address] [place] [address] 07/27/2025 10:15:44 07/27/2025 14:05:56 [id number] Manfred Shelton MD Main Office [address] [place] [address] 07/28/2025 10:36:12 07/28/2025 13:58:27 [id number] Manfred Shelton MD Main Office [address] [place] [address] 07/29/2025 10:14:56 07/29/2025 13:38:02 [id number] Manfred Shelton MD Main Office [address] [place] [address] 07/30/2025 10:32:11 07/31/2025 08:45:48 [id number] Manfred Shelton MD Main Office [address] [place] [address] 08/01/2025 08:56:19 08/01/2025 09:05:22 [id number] Manfred Shelton MD Main Office [address] [place] [address] 08/03/2025 10:12:43 08/03/2025 14:18:16 [id number] Manfred Shelton MD Main Office [address] [place] [address] 08/04/2025 10:18:33 08/04/2025 13:52:38 [id number] Manfred Shelton MD Main Office [address] [place] [address] 08/10/2025 10:19:50 08/10/2025 13:54:24 [id number] Manfred Shelton MD Main Office [address] [place] [address] 08/11/2025 10:13:33 08/11/2025 14:13:40 [id number] Manfred Shelton MD Main Office [address] [place] [address] 08/12/2025 10:17:32 08/12/2025 14:16:09 [id number] Manfred Shelton MD Main Office [address] [place] [address] 08/13/2025 09:43:21 08/13/2025 15:50:31 Health Concerns Section Related Observation LastModified by Organization Detai ls LastModified Time None Recorded Concern Status LastModified by Organization Details LastModified Time None Recorded Payers Encounter Date Sequence Insurance Name Policy Number Policy Gonzales Covered Member ID Gonzales Member ID Guarantor Name 08/13/2025 2 [employer] [facility] Seema Delacruz [id number] Seema Delacruz 08/13/2025 1 [employer] Seema Delacruz [id number] Seema Delacruz OBGyn Episode No OBEpisode recorded.
--- OUTSIDE RECORDS SUMMARY | 2025-09-16 16:37 | XMS_ITS | Continuity of Care Document ---
Author Organization [place] [facility], Main Office Address [address] [place] [address] Care Team Providers Care Local Superintendent Name Role Phone STEPHY YUSUF Primary Care [...] had trouble clearing ears before reaching 1.5 SANYT, and we were only able to get [...] antibiotics for an upper respiratory infection. Nicolasa SUPPORT ENGINEER 07Aug- Patient cleared for HBOT today. VS stable. PAtient had little trouble reaching pressure today, but had to come out of chamber early due to needing to use restroom. She managed to do 4 segs-118 minutes. [place].Tanner SUPPORT ENGINEER 08Aug - Patient cleared for HBOT today. VS stable. Patient completed full session with no problem. Antoinette Lau SUPPORT ENGINEER 11Aug - Patient cleared for HBOT [...] full session with no problem. Antoinette Lau SUPPORT ENGINEER 13Aug - Patient cleared for HBOT today. VS stable. Patient completed full session with no problem. Wound care to follow treatment today. Antoinette Lau APRN 14Aug - Patient cleared for HBOT today. VS stable. Patient completed full session with no problem. Antoinette aLu SUPPORT ENGINEER 15Aug - Patient cleared for HBOT [...] attempt to try again on Sunday. Nicolasa SUPPORT ENGINEER 18Aug - Patient cleared for HBOT today. VS stable. Patient completed full session with no problem. Antoinette Lau SUPPORT ENGINEER 19Aug - Patient deemed safe for [...] significant anxiety. Dressing change today per nursing. [facility] 25Aug - Patient deemed safe for HBOT [...] date andcompleted full session free of problem. [facility] 29Aug - Cleared for HBOT his date and completed full session free of problem. Of note, this patient continues to smoke tobacco cigarettes. [facility] 02Sep - Patient deemed safe for HBOT [...] above 80 and was discharged with 92. [facility] 08Sep - Patient deemed safe for HBOT today. VS stable. Patient completed full session with no problem. [place].Jessica Lau APRN 10Sep - Patient deemed safe for HBOT today. VS stable. Patient completed full session with no problem. Antoinette Lau APRN 11Sep - Patient cleared for HBOT today. VS stable. Patient completed full session with no problem. [place].Jessica Lau SUPPORT ENGINEER 12Sep - Found safe for HBOT this date. Completed curtailed session free of problem. Session shortened to satisfy demand of ride provider. [facility] 15Sep - Patient cleared for HBOT today. [...] full session with no problem. [place].Jessica Lau SUPPORT ENGINEER 26Sep - Deemed safe for HBOT on this date and completed the full session uneventfully. [facility] 29Sep - Patient cleared for HBOT today. VS stable. Patient completed 3 Seg session with no problem. [place].Jessica Lau SUPPORT ENGINEER 30Sep - Patient cleared for HBOT today. VS stable. Patient completed full session with no problem. [place].Jessica Lau SUPPORT ENGINEER 01Oct - Patient cleared for HBOT today. VS stable. Patient completed full session with no problem. [place].Jessica Lau SUPPORT ENGINEER 02Oct - Cleared for HBOT this date and completed full session free of problem. [facility] [email or web address] Not available 07/03/2025 07:21:05 Reason for Referral None Reported. Problems Name Problem SNOMED Code Status Onset Date Resolution Date Notes Provider Name and Address Organization Details Recorded Time Upper respiratory infection 07897436 Active 2024 COLEMAN LAU NP null, [place] - [facility] 12:18:40 Episodic migraine 8223656090226 Active 2024 COLEMAN LAU NP null, [place] [facility] 12:34:01 Type 2 diabetes mellitus 95723802 Active 2024 COLEMAN LAU NP null, [place] [facility] 15:27:12 Refractory migraine with aura 604616664 Active 2024 COLEMAN LAU NP null, [place] [facility] 10:56:52 Recurrent acute frontal sinusitis Active 2024 COLEMAN LAU NP null, [place] [facility] 12:47:05 Candidiasis of vagina 71170135 Active 2024 COLEMAN LAU NP null, [place] [facility] 12:47:26 Acute upper respiratory infection 10300742 Active 2024 COLEMAN LAU NOUGAT CUTTER MACHINE null, [place] - [facility] 12:32:57 Problem Notes None recorded. Procedures Surgical History Date Name Laterality Status Provider Name and Address Organization Details Recorded Time 09/15/20 [facility] Therapy Treatment Form completed Carolyn sharp [place] - [facility] 09/15/2025 12:48:40 09/14/20 25 [facility] Therapy Treatment Form completed COLEMAN LAU NP [place] - [facility] 09/14/2025 14:54:43 09/07/20 25 [facility] Therapy Treatment Form completed [facility] - [facility] 09/07/2025 12:38:58 08/31/20 25 [facility] Therapy Treatment Form completed [facility] - [facility] 08/31/2025 12:48:46 08/25/20 25 [facility] Therapy Treatment Form completed [facility] - [facility] 08/25/2025 12:52:26 08/24/20 25 [facility] Therapy Treatment Form completed [facility] - [facility] 08/24/2025 12:53:43 08/17/20 25 [facility] Therapy Treatment Form completed [facility] - [facility] 08/17/2025 13:02:48 08/14/20 25 [facility] Therapy Treatment Form completed Lisa Sosa [place] - [facility] 08/14/2025 12:43:08 08/13/20 25 [facility] Therapy Treatment Form completed [facility] - [facility] 08/13/2025 12:27:58 08/12/20 25 [facility] Therapy Treatment Form completed [facility] - [facility] 08/12/2025 12:36:02 08/12/20 25 Wound completed COLEMAN LAU NP [place] - [facility] 08/12/2025 14:15:15 08/11/20 25 [facility] Therapy Treatment Form completed [facility] - [facility] 08/11/2025 12:58:18 08/10/20 25 [facility] Therapy Treatment Form completed [facility] - [facility] 08/10/2025 12:57:23 08/04/20 25 [facility] Therapy Treatment Form completed ABDOULAYE HAQ - [facility] 08/04/2025 13:51:50 08/03/20 25 [facility] Therapy Treatment Form completed COLEMAN LAU NP [place] - [facility] 08/03/2025 14:17:35 07/30/20 25 [facility] Therapy Treatment Form completed [facility] - [facility] 07/30/2025 12:38:27 07/29/20 25 [facility] Therapy Treatment Form completed [facility] [place] - [facility] 07/29/2025 [...] [facility] 07/23/2025 12:41:49 07/22/20 [facility] Therapy Treatment Form completed [facility] - [facility] 07/22/2025 12:53:32 07/21/20 [facility] Therapy Treatment Form completed [facility] - [facility] 07/21/2025 12:43:55 07/20/20 [facility] Therapy Treatment Form completed [facility] - [facility] 07/20/2025 12:58:21 [...] [facility] 07/15/2025 12:39:29 07/14/20 25 [facility] Therapy Treatment Form completed COLEMAN LAU NP [place] - [facility] 07/14/2025 15:14:39 07/09/20 25 [facility] Therapy Treatment Form completed [facility] - [facility] 07/09/2025 12:46:05 07/08/20 25 [facility] Therapy Treatment Form completed [facility] - [facility] 07/08/2025 12:41:28 07/07/20 25 [facility] Therapy Treatment Form completed Manfred Shelton MD [place] - [facility] 07/08/2025 08:10:21 07/06/20 25 [facility] Therapy Treatment Form completed Carolyn roland [place] - [facility] 07/06/2025 13:06:29 07/03/20 25 [facility] Therapy Treatment Form completed Paula Licea [place] - [facility] 07/03/2025 12:47:29 07/02/20 25 [facility] Therapy Treatment Form completed Paula BERNAL - [facility] 07/02/2025 13:06:39 07/01/20 25 [facility] Therapy Treatment Form completed Paula Licea [place] - [facility] 07/01/2025 13:05:37 06/30/20 25 [facility] Therapy Treatment Form completed COLEMAN LAU NP [place] - [facility] 06/30/2025 13:46:12 06/29/20 25 [facility] Therapy Treatment Form completed Carolyn roland [place] - [facility] 06/29/2025 13:24:58 06/26/20 25 [facility] Therapy Treatment Form completed Manfred Shelton MD [place] - [facility] 06/26/2025 16:57:55 06/25/20 25 [facility] Therapy Treatment Form completed Carolyn roland [place] - [facility] 06/25/2025 12:47:07 06/24/20 25 [facility] Therapy Treatment Form completed Carolyn luan [place] - [facility] 06/24/2025 12:40:20 06/23/20 25 [facility] Therapy Treatment Form completed Carolyn luan [place] - [facility] 06/23/2025 12:39:50 06/22/20 25 [facility] Therapy Treatment Form completed Carolyn luan [place] - [facility] 06/22/2025 12:49:55 06/19/20 25 [facility] Therapy Treatment Form completed Manfred Shelton MD [place] - [facility] 06/19/2025 14:13:24 06/18/20 25 [facility] Therapy Treatment Form completed COLEMAN LAU NP [place] - [facility] 06/18/2025 13:17:34 06/17/20 25 [facility] Therapy Treatment Form completed Carolyn roland [place] - [facility] 06/17/2025 12:29:15 06/16/20 25 [facility] Therapy Treatment Form completed Carolyn roland [place] - [facility] 06/16/2025 12:45:53 06/15/20 25 [facility] Therapy Treatment Form completed [facility] [place] - [facility] [...] Additional Air Breaks Therapy Treatment Form completed Crystal Ruben [place] [...] 13:01:51 05/06/20 25 Wound completed COLEMAN LAU ABDOULAYE [place] - [facility] 05/07/2025 08:29:18 [...] n Not available Not available Not available 04/23/202526780 3 RxNorm Luciana servin, [place] - [facility] 5 14:25:27 1104 Avelox medicatio n Not available Not available Not available 04/23/2025 12112 6 RxNorm [place] - [facility] 5 14:25:52 1105 metformin medicatio n other Not available low 04/23/20252023 6809 RxNorm GI issue s Luciana servin, [place] - [facility] 5 14:26:11 1253 Product containin g angiotens in-conver ting enzyme inhibitor (product) medicatio n cough moderate Not available 06/26/2025 33358 009 SNOMED Not Available [employer] - prod 5 10:54:20 1254 metformin hydrochlo ride medicatio n Not available Not available Not available 06/26/2025 66892 3 RxNorm Not Available [employer] - prod 5 10:54:20 1358 ceftriaxo ne medicatio n rash moderate Not available 07/15/2025 2193 RxNorm Not Available [employer] - prod 5 10:18:57 1359 droperido l medicatio n dyspnea Not available Not available 07/15/2025 3648 RxNorm Not Available [employer] - prod 5 10:18:57 1360 moxifloxa beck medicatio n rash moderate Not available 07/15/2025 88082 2 RxNorm Not Available [employer] - prod 5 10:18:57 1461 moxifloxa beck hydrochlo ride medicatio n Not available Not available Not available 08/24/20252015 00392 0 RxNorm Not Available [employer] - prod 5 04:35:37 Medications [...] rate Heart rate Body temperature Oxygen saturation Heart rate Respiratory rate Body temperature Oxygen saturation Systolic And Diastolic Systolic And Diastolic Provider Name and Address Organization Details Last Updated DateTime 5 16 /min 76 /min 98.2 [degF] 88 % 68 /min 16 /min 97.9 [degF] 93 % 145/81 mm[Hg] 110/58 mm[Hg] [facility] 5 13:07:10 Date Recorded Heart rate Respiratory rate Body temperature Oxygen saturation Heart rate Respiratory rate Body temperature Oxygen saturation Systolic And Diastolic Systolic And Diastolic Provider Name and Address Organization Details Last Updated DateTime 5 95 /min 16 /min 97.9 [degF] 90 % 73 /min 16 /min 97.7 [degF] 90 % 153/83 mm[Hg] 123/61 mm[Hg] [facility] - [facility] 5 12:47:55 Social [...] Office [address] [place] [address] 06/02/2025 10:25:50 06/02/2025 14:14:27 [id number] Manfred Shelton MD Main Office [address] [place] [address] 06/03/2025 10:16:52 06/03/2025 14:45:20 [id number] Manfred Shelton MD Main Office [address] [place] [address] 06/04/2025 10:31:23 06/04/2025 13:58:07 [id number] Manfred Shelton MD Main Office [address] [place] [address] 06/04/2025 14:13:52 06/04/2025 14:25:08 [id number] Manfred Shelton MD Main Office [address] [place] [address] 06/05/2025 10:55:07 06/05/2025 16:50:44 [id number] Manfred Shelton MD Main Office [address] [place] [address] 06/08/2025 10:25:37 06/08/2025 14:39:12 [id number] Manfred Shelton MD Main Office [address] [place] [address] 06/10/2025 10:19:13 06/10/2025 13:21:20 [id number] Manfred Shelton MD Main Office [address] [place] [address] 06/11/2025 10:35:04 06/11/2025 14:11:07 [id number] Manfred Shelton MD Main Office [address] [place] [address] 06/12/2025 10:59:45 06/12/2025 14:56:49 [id number] Manfred Shelton MD Main Office [address] [place] [address] 06/15/2025 10:50:33 06/15/2025 13:14:21 [id number] Manfred Shelton MD Main Office [address] [place] [address] 06/16/2025 10:14:56 06/16/2025 13:52:36 [id number] Manfred Shelton MD Main Office [address] [place] [address] 06/17/2025 10:28:52 06/17/2025 13:18:56 [id number] Manfred Shelton MD Main Office [address] [place] [address] 06/18/2025 10:16:09 06/18/2025 13:16:04 [id number] Manfred Shelton MD Main Office [address] [place] [address] 06/19/2025 10:44:19 06/19/2025 14:15:39 [id number] COLEMAN JASBIR, NOUGAT CUTTER MACHINE Main Office [address] [place] [address] 06/22/2025 10:36:06 06/22/2025 14:32:28 [id number] Manfred Shelton MD Main Office [address] [place] [address] 06/23/2025 10:18:15 06/23/2025 14:03:00 [id number] Manfred Shelton MD Main Office [address] [place] [address] 06/24/2025 10:23:16 06/24/2025 13:37:08 [id number] Manfred Shelton MD Main Office [address] [place] [address] 06/25/2025 10:19:36 06/25/2025 14:27:35 [id number] Manfred Shelton MD Main Office [address] [place] [address] 06/26/2025 10:52:38 06/26/2025 16:27:47 [id number] Manfred Shelton MD Main Office [address] [place] [address] 06/29/2025 10:44:14 06/29/2025 13:39:12 [id number] Manfred Shelton MD Main Office [address] [place] [address] 06/30/2025 10:42:21 06/30/2025 13:46:39 [id number] Manfred Shelton MD Main Office [address] [place] [address] 07/01/2025 10:49:18 07/01/2025 13:25:24 [id number] Manfred Shelton MD Main Office [address],[facility] [address] [place] [address] 07/02/2025 10:15:06 07/03/2025 07:21:23 Health Concerns Section Related Observation LastModified by Organization Detai ls LastModified Time None Recorded Concern Status LastModified by Organization Details LastModified Time None Recorded Payers Encounter Date Sequence Insurance Name Policy Number Policy Gonzales Covered Member ID Gonzales Member ID Guarantor Name 07/02/2025 2 [employer] [facility] Seema Delacruz [id number] Seema Delacruz 07/02/2025 1 [employer] Seema Delacruz [id number] Seema Delacruz OBGyn Episode No OBEpisode recorded.
--- OUTSIDE RECORDS SUMMARY | 2025-09-16 16:39 | XMS_ITS | Continuity of Care Document ---
Author Organization [place] [facility], Main Office Address [address] [place] [address] Care Team Providers Care Chain Saw Operator Name Role Phone STEPHY YUSUF Primary Care Provider [phone] Assessment No assessment recorded. Plan of Treatment [...] Modified By Organization Details Last Modified Time 07/21/2025 [id number] BACKGROUND: Seema Delacruz is a 55 y.o. [...] Diagnosis: L97.512, E11.621 Session Notes: Today's Date 21Jul2025 HBOT session 54 of 60 Next HBOT 22Jul2025 30Jul - Patient cleared for 1st HBOT [...] antibiotics for an upper respiratory infection. Nicolasa LOSS PRE[employer]ION LEADER 07Aug- Patient cleared for HBOT today. VS stable. PAtient had little trouble reaching pressure today, but had to come out of chamber early due to needing to use restroom. She managed to do 4 segs-118 minutes. [place].Tanner LOSS PREVENTION LEADER 08Aug - Patient cleared for HBOT today. VS stable. Patient completed full session with no problem. Antoinette Lau LOSS PREVENTION LEADER 11Aug - Patient cleared for HBOT today. [...] full session with no problem. Antoinette Lau LOSS PREVENTION LEADER 13Aug - Patient cleared for HBOT today. VS stable. Patient completed full session with no problem. Wound care to follow treatment today. Antoinette Lau APRN 14Aug - Patient cleared for HBOT today. VS stable. Patient completed full session with no problem. Antoinette Lau LOSS PREVENTION LEADER 15Aug - Patient cleared for HBOT today. [...] attempt to try again on Sunday. Nicolasa LOSS PREVENTION LEADER 18Aug - Patient cleared for HBOT today. VS stable. Patient completed full session with no problem. Antoinette Lau LOSS PREVENTION LEADER 19Aug - Patient deemed safe for HBOT [...] significant anxiety. Dressing change today per nursing. [facility] [place] 25Aug - Patient deemed [...] this patient continues to smoke tobacco cigarettes. [facility] [place] 02Sep - Patient deemed [...] above 80 and was discharged with 92. [facility] [place] 08Sep - Patient deemed safe for HBOT today. VS stable. Patient completed full session with no problem. [place].Jessica Lau APRN 10Sep - Patient deemed safe for HBOT today. VS stable. Patient completed full session with no problem. Antoinette Lau APRN 11Sep - Patient cleared for HBOT today. VS stable. Patient completed full session with no problem. [place].Jessica Lau LOSS PRE[employer]ION LEADER 12Sep - Found safe for HBOT this date. Completed curtailed session free of problem. Session shortened to satisfy demand of ride provider. [facility] [place] 15Sep - Patient cleared [...] full session with no problem. IsraelIlsa Lau LOSS PREVENTION LEADER 26Sep - Deemed safe for HBOT on this date and completed the full session uneventfully. [facility] [place] 29Sep - Patient cleared for HBOT today. VS stable. Patient completed 3 Seg session with no problem. M.Jessica Lau LOSS PREVENTION LEADER 30Sep - Patient cleared for HBOT today. VS stable. Patient completed full session with no problem. M.Jessica Lau LOSS PREVENTION LEADER 01Oct - Patient cleared for HBOT today. VS stable. Patient completed full session with no problem. [place].Jessica Lau LOSS PREVENTION LEADER 02Oct - Cleared for HBOT this date and completed full session free of problem. [facility] [place] 03Oct - Deemed safe for HBOT today and completed her full session without problem. [facility] [place] 06Oct - Found safe for HBOT this date and tolerated her session free of problem. [facility] [place] 07Oct- Cleared for HBOT this date and completed the full session without problem. [facility] [place] 08Oct - Glu on arrival marginal so given caloric intake first and then cleared for HBOT this day. Had no problem completing full session emerging at Glu 139. [facility] [place] 09Oct - Deemed safe for HBOT today and completed full session without problem. [facility] [place] 14Oct - Patient returns after being out ill. Cleared for HBOT today. VS stable. Patient completed full session with no problem. IsraelIlsa Lau LOSS PREVENTION LEADER 15Oct - Patient cleared for HBOT today. VS stable. Patient completed full session with no problem. [place].Jessica Lau LOSS PREVENTION LEADER 16Oct - Patient cleared for HBOT today. VS stable. Patient completed full session with no problem. [place].Jessica Lau LOSS PREVENTION LEADER 17Oct - Patient cleared for HBOT today. VS stable. Patient completed full session with no problem. [place].Jessica Lau LOSS PREVENTION LEADER 20Oct - Patient an hour late today due to transportation company. She can only do an hour, or she will not have a ride back home. Cleared for HBOT, VS stable. Finished 1 hour session with no issues or complaints. [place].Tanner LOSS PREVENTION LEADER 21Oct - Patient cleared for HBOT today. VS stable. Patient completed full session with no problem. IsraelIlsa Lau LOSS PREVENTION LEADER Not available 07/21/2025 12:49:29 Reason for Referral None Reported. Results Created [...] Organization Details Recorded Time Upper respiratory infection [id number] Active 2024 COLEMAN LAU [employer] DEVELOPER null, [place] [facility] 12:18:40 Episodic migraine [id number] Active 2024 COLEMAN LAU [employer] DEVELOPER null, [place] [facility] 12:34:01 Type 2 diabetes mellitus [id number] Active 2024 COLEMAN LAU [employer] DEVELOPER null, [place] [facility] 15:27:12 Refractory migraine with aura [id number] Active 2024 COLEMAN LAU [employer] DEVELOPER null, [place] [facility] 10:56:52 Recurrent acute frontal sinusitis Active 2024 COLEMAN LAU [employer] DEVELOPER null, [place] [facility] 12:47:05 Candidiasis of vagina [id number] Active 2024 COLEMANPATRICE LAU, [employer] DEVELOPER null, [place] [facility] 12:47:26 Acute upper respiratory infection 98111583 Active 2024 COLEMAN LAU [employer] DEVELOPER null, [place] [facility] 12:32:57 [...] Care Therapy Treatment Form completed Carolyn roland [place] - [facility] 08/25/2025 12:52:26 08/24/20 25 [facility] Therapy Treatment Form completed Carolyn luan [place] - [facility] 08/24/2025 12:53:43 08/17/20 25 [facility] Therapy Treatment Form completed Carolyn roland [place] - [facility] 08/17/2025 13:02:48 08/14/20 25 [facility] Therapy Treatment Form completed Lisa Sosa [place] - [facility] 08/14/2025 12:43:08 08/13/20 25 [facility] Therapy Treatment Form completed Carolyn roland [place] - [facility] 08/13/2025 12:27:58 08/12/20 25 [facility] Therapy Treatment Form completed Carolyn luan [place] - [facility] 08/12/2025 12:36:02 08/12/20 25 Wound completed COLEMAN LAU NP [place] - [facility] 08/12/2025 14:15:15 08/11/20 25 [facility] Therapy Treatment Form completed Carolyn luan [place] - [facility] 08/11/2025 12:58:18 08/10/20 25 [facility] Therapy Treatment Form completed Carolyn roland [place] - [facility] 08/10/2025 12:57:23 08/04/20 25 [facility] Therapy Treatment Form completed COLEMAN LAU NP [place] [facility] 08/04/2025 13:51:50 08/03/20 25 [facility] Therapy Treatment Form completed ABDOULAYE [place] - [facility] 08/03/2025 14:17:35 07/30/20 25 [facility] Therapy Treatment Form completed Carolyn roland [place] - [facility] 07/30/2025 12:38:27 07/29/20 25 [facility] Therapy Treatment Form completed Carolyn roland [place] [facility] 07/29/2025 12:40:06 07/28/20 [...] Care Therapy Treatment Form completed Carolyn roland [place] [facility] 07/23/2025 12:41:49 07/22/20 25 [facility] Therapy Treatment Form completed Carolyn roland [place] - [facility] 07/22/2025 12:53:32 07/21/20 25 [facility] Therapy Treatment Form completed Carolyn [facility] - [facility] 07/21/2025 12:43:55 07/20/20 [facility] Therapy Treatment Form completed Carolyn luan [place] - [facility] 07/20/2025 12:58:21 07/17/20 [...] Oxygen Care Therapy Treatment Form completed Carolyn orland [place] - [facility] 07/15/2025 12:39:29 07/14/20 25 [facility] Therapy Treatment Form completed COLEMAN LAU NP [place] - [facility] 07/14/2025 15:14:39 07/09/20 25 [facility] Therapy Treatment Form completed Carolyn roland [place] - [facility] 07/09/2025 12:46:05 07/08/20 25 [facility] Therapy Treatment Form completed Carolyn roland [place] - [facility] 07/08/2025 12:41:28 07/07/20 25 [facility] Therapy Treatment Form completed Manfred Shelton MD [place] - [facility] 07/08/2025 08:10:21 07/06/20 25 [facility] Therapy Treatment Form completed Carolyn roland [place] - [facility] 07/06/2025 13:06:29 07/03/20 25 [facility] Therapy Treatment Form completed Paula Licea [place] - [facility] 07/03/2025 12:47:29 07/02/20 25 [facility] Therapy Treatment Form completed Paula Licea [place] - [facility] 07/02/2025 13:06:39 07/01/20 25 [facility] Therapy Treatment Form completed Paula Licea [place] - [facility] 07/01/2025 13:05:37 06/30/20 25 [facility] Therapy Treatment Form completed COLEMAN LAU NP [place] [facility] 06/30/2025 13:46:12 06/29/20 25 [facility] Therapy Treatment Form completed [facility] - [facility] 06/29/2025 13:24:58 06/26/20 25 [facility] Therapy Treatment Form completed Manfred Shelton MD [place] - [facility] 06/26/2025 16:57:55 06/25/20 25 [facility] Therapy Treatment Form completed [facility] - [facility] 06/25/2025 12:47:07 06/24/20 25 [facility] Therapy Treatment Form completed [facility] 06/24/2025 12:40:20 06/23/20 25 [facility] Therapy Treatment Form completed [facility] 06/23/2025 12:39:50 06/22/20 25 [facility] Therapy Treatment Form completed [facility] - [facility] 06/22/2025 12:49:55 06/19/20 25 [facility] Therapy Treatment Form completed Manfred Shelton MD [place] - [facility] 06/19/2025 14:13:24 06/18/20 25 [facility] Therapy Treatment Form completed COLEMAN LAU NP [place] [facility] 06/18/2025 13:17:34 06/17/20 25 [facility] Therapy Treatment Form completed [facility] - [facility] 06/17/2025 12:29:15 06/16/20 25 [facility] Therapy Treatment Form completed [facility] - [facility] 06/16/2025 12:45:53 06/15/20 25 [facility] Therapy Treatment Form completed [facility] 06/15/2025 12:47:07 06/12/20 25 [facility] Therapy Treatment Form completed Manfred Shelton MD [place] - [facility] 06/12/2025 14:54:52 06/11/20 25 [facility] Therapy Treatment Form completed [facility] 06/11/2025 13:02:39 06/10/20 25 [facility] Therapy Treatment Form completed Carolyn sharp [place] - [facility] 06/10/2025 12:50:18 06/08/20 25 [facility] Therapy Treatment Form completed Carolyn roland [place] - [facility] 06/08/2025 12:56:07 06/05/20 [...] Care Therapy Treatment Form completed Carolyn roland [place] - [facility] 06/02/2025 13:09:37 05/29/20 [...] Form completed [facility] [place] - [facility] 05/27/2025 12:50:01 05/26/20 25 Nurse Note completed Luciana Noriega [place] - [facility] 05/26/2025 16:40:42 05/26/20 25 [facility] Therapy Treatment Form completed Carolyn luan [place] - [facility] 05/26/2025 12:27:56 05/25/20 25 [facility] Therapy Treatment Form completed [facility] - [facility] 05/25/2025 13:12:32 05/22/20 25 [facility] Therapy Treatment Form completed [facility] - [facility] 05/22/2025 12:33:28 05/21/20 25 [facility] Therapy Treatment Form completed [facility] - [facility] 05/21/2025 12:47:49 [...] Not available Not available Not available 04/23/2025 04308 3 RxNorm Luciana servin, [place] - [facility] 14:25:27 1104 Avelox medicatio n Not available Not available Not available 04/23/2025 83982 6 RxNorm Luciana servin, [place] - [facility] 14:25:52 1105 metformin medicatio n other Not available low 04/23/20252023 6809 RxNorm GI issue s [place] - [facility] 14:26:11 1253 Product containin g angiotens in-conver ting enzyme inhibitor (product) medicatio n cough moderate Not available 06/26/2025 84229 009 SNOMED Not Available taisha [employer] - prod 5 10:54:20 1254 metformin hydrochlo ride medicatio n Not available Not available Not available 06/26/2025 08501 3 RxNorm Not Available taisha - External Data [employer] - prod 5 10:54:20 1358 ceftriaxo ne medicatio n rash moderate Not available 07/15/2025 2193 RxNorm Not Available [email or web address] - prod 10:18:57 1359 droperido l medicatio n dyspnea Not available Not available 07/15/2025 3648 RxNorm Not Available taisha [employer] - prod 5 10:18:57 1360 moxifloxa beck medicatio n rash moderate Not available 07/15/2025 17014 2 RxNorm Not Available taisha [employer] - prod 5 10:18:57 1461 moxifloxa beck hydrochlo ride medicatio n Not available Not available Not available 08/24/20252015 40458 0 RxNorm Not Available taisha [employer] - prod 5 04:35:37 Medications [...] Updated DateTime 5 86 /min 16 /min 98.1 [degF] 84 % 75 /min 16 /min 97.9 [degF] 90 % 150/70 mm[Hg] 145/79 mm[Hg] [facility] - [facility] 5 12:44:10 Social History None recorded. Functional Status None [...] ICD10 Code Diagnosis IMO Codes Diagnosis Note [id number] COLEMAN LAU NP Main Office [address] [address] [place] [address] 06/22/2025 10:36:06 06/22/2025 14:32:28 [id number] Manfred Shelton MD Main Office [address] [address] [place] [address] 06/23/2025 10:18:15 06/23/2025 14:03:00 [id number] Manfred Shelton MD Main Office [address] [address] 06/24/2025 10:23:16 06/24/2025 13:37:08 [id number] Manfred Shelton MD Main Office [address] [place] [address] 06/25/2025 10:19:36 06/25/2025 14:27:35 [id number] Manfred Shelton MD Main Office [address] [place] [address] 06/26/2025 10:52:38 06/26/2025 16:27:47 [id number] Manfred Shelton MD Main Office [address] [place] [address] 06/29/2025 10:44:14 06/29/2025 13:39:12 [id number] Manfred Shelton MD Main Office [address] [place] [address] 06/30/2025 10:42:21 06/30/2025 13:46:39 [id number] Manfred Shelton MD Main Office [address] [place] [address] 07/01/2025 10:49:18 07/01/2025 13:25:24 5514 Manfred Shelton MD Main Office [address] [place] [address] 07/02/2025 10:15:06 07/03/2025 07:21:23 [id number] Manfred Shelton MD Main Office [address] [place] [address] 07/03/2025 10:50:33 07/03/2025 17:53:35 [id number] Manferd Shelton MD Main Office [address] [place] [address] 07/06/2025 10:54:52 07/06/2025 14:37:01 [id number] Manfred Shelton MD Main Office [address] [place] [address] 07/07/2025 10:14:11 07/08/2025 08:12:24 [id number] Manfred Shelton MD Main Office [address] [place] [address] 07/08/2025 10:22:23 07/08/2025 19:57:51 [id number] Manfred Shelton MD Main Office [address] [place] [address] 07/09/2025 10:23:51 07/09/2025 16:04:46 [id number] Manfred Shelton MD Main Office [address] [place] [address] 07/14/2025 10:06:05 07/14/2025 15:15:47 [id number] Manfred Shelton MD Main Office [address] [place] [address] 07/15/2025 10:17:40 07/15/2025 13:26:46 [id number] Manfred Shelton MD Main Office [address] [place] [address] 07/15/2025 14:45:53 07/15/2025 14:48:12 [id number] Manfred Shelton MD Main Office [address] [place] [address] 07/16/2025 10:18:19 07/16/2025 14:20:47 [id number] Manfred Shelton MD Main Office [address] [place] [address] 07/17/2025 10:06:47 07/17/2025 14:10:36 Refractory migraine with aura [id number] G43.159 [id number] Manfred Shelton MD Main Office [address] [place] , [place] [address] 07/20/2025 11:09:11 07/20/2025 14:45:37 [id number] Manfred Shelton MD Main Office [address] [place] , [place] [address] 07/21/2025 10:11:12 07/21/2025 12:49:36 Health Concerns Section Related Observation LastModified by Organization Detai ls LastModified Time None Recorded Concern Status LastModified by Organization Details LastModified Time None Recorded Payers Encounter Date Sequence Insurance Name Policy Number Policy Gonzales Covered Member ID Gonzales Member ID Guarantor Name 07/21/2025 2 [employer] Seema Delacruz [id number] Seema Delacruz 07/21/2025 1 [employer] Seema Delacruz [id number] Seema Delacruz OBGyn Episode No OBEpisode recorded.
--- OUTSIDE RECORDS SUMMARY | 2025-09-16 16:40 | XMS_ITS | Continuity of Care Document ---
Author Organization [place] [facility], Main Office Address [address] [place] [address] Care Team Providers Care Correspondence Review Clerk Name Role Phone STEPHY YUSUF Primary Care Provider [phone] Assessment No assessment recorded. Plan of Treatment [...] By Organization Details Last Modified Time 06/30/2025 5440 BACKGROUND: Seema Delacruz is a 55 y.o. [...] E11.621 ___ ___ Session Notes: Today's Date [id number] HBOT session 41 of 60 Next HBOT [id number] 30Jul - Patient cleared for 1st HBOT [...] antibiotics for an upper respiratory infection. Nicolasa CONSTRUCTION COORDINATOR 07Aug- Patient cleared for HBOT today. VS stable. PAtient had little trouble reaching pressure today, but had to come out of chamber early due to needing to use restroom. She managed to do 4 segs-118 minutes. [place].Tanner CONSTRUCTION COORDINATOR 08Aug - Patient cleared for HBOT today. VS stable. Patient completed full session with no problem. Antoinette Lau CONSTRUCTION COORDINATOR 11Aug - Patient cleared for HBOT today. [...] full session with no problem. Antoinette Lau CONSTRUCTION COORDINATOR 13Aug - Patient cleared for HBOT today. VS stable. Patient completed full session with no problem. Wound care to follow treatment today. Antoinette Lau APRN 14Aug - Patient cleared for HBOT today. VS stable. Patient completed full session with no problem. Antoinette Lau CONSTRUCTION COORDINATOR 15Aug - Patient cleared for HBOT today. [...] attempt to try again on Sunday. Nicolasa CONSTRUCTION COORDINATOR 18Aug - Patient cleared for HBOT today. VS stable. Patient completed full session with no problem. Antoinette Lau CONSTRUCTION COORDINATOR 19Aug - Patient deemed safe for HBOT [...] significant anxiety. Dressing change today per nursing. [facility] 25Aug - Patient deemed safe for HBOT [...] this patient continues to smoke tobacco cigarettes. [facility] 02Sep - Patient deemed safe for HBOT [...] above 80 and was discharged with 92. [facility] 08Sep - Patient deemed safe for HBOT today. VS stable. Patient completed full session with no problem. [place].Jessica Lau APRN 10Sep - Patient deemed safe for HBOT today. VS stable. Patient completed full session with no problem. Antoinette Lau APRN 11Sep - Patient cleared for HBOT today. VS stable. Patient completed full session with no problem. [place].Jessica Lau CONSTRUCTION COORDINATOR 12Sep - Found safe for HBOT this date. Completed curtailed session free of problem. Session shortened to satisfy demand of ride provider. [facility] 15Sep - Patient cleared for HBOT today. [...] full session with no problem. Antoinette Sotowood CONSTRUCTION COORDINATOR 26Sep - Deemed safe for HBOT on this date and completed the full session uneventfully. [facility] 29Sep - Patient cleared for HBOT today. VS stable. Patient completed 3 Seg session with no problem. Antoinette Sotowood CONSTRUCTION COORDINATOR 30Sep - Patient cleared for HBOT today. VS stable. Patient completed full session with no problem. Antoinette Sotowood CONSTRUCTION COORDINATOR Not available 06/30/2025 13:46:32 Reason for Referral None Reported. Problems Name Problem SNOMED Code Status Onset Date Resolution Date Notes Provider Name and Address Organization Details Recorded Time Upper respiratory infection 80944096 Active 2024 COLEMAN LAU NP null, [place] - [facility] 12:18:40 Episodic migraine [id number] 06 Active 2024 COLEMAN LAU NP null, [place] [facility] 12:34:01 Type 2 diabetes mellitus 84415175 Active 2024 COLEMAN LAU NP null, [place] [facility] 15:27:12 Refractory migraine with aura 496726449 Active 2024 COLEMAN LAU NP null, [place] [facility] 10:56:52 Recurrent acute frontal sinusitis Active 2024 COLEMAN LAU NP null, [place] [facility] 12:47:05 Candidiasis of vagina 51954495 Active 2024 COLEMAN LAU NP null, [place] [facility] 12:47:26 Acute upper respiratory infection 48340679 Active 2024 COLEMAN LAU NP null, [place] [...] Carolyn roland [place] - [facility] 09/07/2025 12:38:58 08/31/20 25 [facility] Therapy Treatment Form completed [facility] - [facility] 08/31/2025 12:48:46 08/25/20 25 [facility] Therapy Treatment Form completed Carolyn [facility] - [facility] 08/25/2025 12:52:26 08/24/20 25 [facility] Therapy Treatment Form completed [facility] - [facility] 08/24/2025 12:53:43 08/17/20 25 [facility] Therapy Treatment Form completed [facility] - [facility] 08/17/2025 13:02:48 08/14/20 25 [facility] Therapy Treatment Form completed Lisa Sosa [place] - [facility] 08/14/2025 12:43:08 08/13/20 25 [facility] Therapy Treatment Form completed [facility] - [facility] 08/13/2025 12:27:58 08/12/20 25 [facility] Therapy Treatment Form completed [facility] - [facility] 08/12/2025 12:36:02 08/12/20 25 Wound completed COLEMAN LAU NP [place] - [facility] 08/12/2025 14:15:15 08/11/20 25 [facility] Therapy Treatment Form completed [facility] - [facility] 08/11/2025 12:58:18 08/10/20 25 [facility] Therapy Treatment Form completed Carolyn roladn [place] - [facility] 08/10/2025 12:57:23 08/04/20 25 [facility] Therapy Treatment Form completed COLEMAN LAU NP [place] - [facility] 08/04/2025 13:51:50 08/03/20 25 [facility] Therapy Treatment Form completed ABDOULAYE [facility] - [facility] 08/03/2025 14:17:35 07/30/20 25 [facility] Therapy Treatment Form completed [facility] - [facility] 07/30/2025 12:38:27 07/29/20 25 [facility] Therapy Treatment Form completed Carolyn roland [place] - [facility] 07/29/2025 12:40:06 07/28/20 [...] Oxygen Care Therapy Treatment Form completed [facility] - [facility] 07/23/2025 12:41:49 07/22/20 [facility] Therapy Treatment Form completed [facility] - [facility] 07/22/2025 12:53:32 07/21/20 [facility] Therapy Treatment Form completed [facility] - [facility] 07/21/2025 12:43:55 07/20/20 [facility] Therapy Treatment Form completed [facility] - [facility] 07/20/2025 12:58:21 07/17/20 [facility] Therapy Treatment Form completed Lisa Sosa [place] - [facility] 07/17/2025 12:35:46 07/16/20 25 [facility] Therapy Treatment Form completed Frank Gage [place] - [facility] 07/16/2025 16:54:47 07/15/20 25 Wound completed COLEMAN LAU NP [place] - [facility] 07/15/2025 14:47:28 07/15/20 25 [facility] Therapy Treatment Form completed [facility] - [facility] 07/15/2025 12:39:29 07/14/20 25 [facility] Therapy Treatment Form completed COLEMAN LAU NP [place] - [facility] 07/14/2025 15:14:39 07/09/20 25 [facility] Therapy Treatment Form completed [facility] - [facility] 07/09/2025 12:46:05 07/08/20 25 [facility] Therapy Treatment Form completed [facility] - [facility] 07/08/2025 12:41:28 07/07/20 25 [facility] Therapy Treatment Form completed Manfred Shelton MD [place] - [facility] 07/08/2025 08:10:21 07/06/20 25 [facility] Therapy Treatment Form completed [facility] - [facility] 07/06/2025 13:06:29 07/03/20 25 [facility] Therapy Treatment Form completed Paula Licea [place] - [facility] 07/03/2025 12:47:29 07/02/20 25 [facility] Therapy Treatment Form completed Paula Licea [place] - [facility] 07/02/2025 13:06:39 07/01/20 25 [facility] Therapy Treatment Form completed Paula Licea [place] - [facility] 07/01/2025 13:05:37 06/30/20 25 [facility] Therapy Treatment Form completed COLEMAN LAU NP [place] - [facility] 06/30/2025 13:46:12 06/29/20 25 [facility] Therapy Treatment Form completed Carolyn [facility] - [facility] 06/29/2025 13:24:58 06/26/20 25 [facility] Therapy Treatment Form completed Manfred Shelton MD [place] - [facility] 06/26/2025 16:57:55 06/25/20 25 [facility] Therapy Treatment Form completed [facility] - [facility] 06/25/2025 12:47:07 06/24/20 25 [facility] Therapy Treatment Form completed [facility] - [facility] 06/24/2025 12:40:20 06/23/20 25 [facility] Therapy Treatment Form completed [facility] - [facility] 06/23/2025 12:39:50 06/22/20 25 [facility] Therapy Treatment Form completed [facility] - [facility] 06/22/2025 12:49:55 06/19/20 25 [facility] Therapy Treatment Form completed Manfred Shelton MD [place] - [facility] 06/19/2025 14:13:24 06/18/20 25 [facility] Therapy Treatment Form completed COLEMAN LAU NP [place] - [facility] 06/18/2025 13:17:34 06/17/20 25 [facility] Therapy Treatment Form completed [facility] - [facility] 06/17/2025 12:29:15 06/16/20 25 [facility] Therapy Treatment Form completed [facility] - [facility] 06/16/2025 12:45:53 06/15/20 25 [facility] Therapy Treatment Form completed [facility] - [facility] 06/15/2025 12:47:07 06/12/20 25 [facility] Therapy Treatment Form completed Manfred Shelton MD [place] - [facility] 06/12/2025 14:54:52 06/11/20 25 [facility] Therapy Treatment Form completed [facility] - [facility] 06/11/2025 13:02:39 06/10/20 25 [facility] Therapy Treatment Form completed [facility] - [facility] 06/10/2025 12:50:18 06/08/20 25 [facility] Therapy Treatment Form completed [facility] - [facility] 06/08/2025 [...] Oxygen Care Therapy Treatment Form completed [facility] - [facility] 06/02/2025 13:09:37 05/29/20 25 [facility] Therapy Treatment Form completed [facility] - [facility] 05/29/2025 12:25:31 05/28/20 25 [facility] Therapy Treatment Form completed [facility] 05/28/2025 13:02:44 05/27/20 25 Wound completed COLEMAN LAU NP [place] - [facility] 05/27/2025 13:18:22 05/27/20 25 [facility] Therapy Treatment Form completed [facility] - [facility] 05/27/2025 12:50:01 05/26/20 25 Nurse Note completed Luciana Noriega [place] [facility] 05/26/2025 16:40:42 05/26/20 25 [facility] Therapy Treatment Form completed [facility] - [facility] 05/26/2025 12:27:56 05/25/20 25 [facility] Therapy Treatment Form completed [facility] - [facility] 05/25/2025 [...] Not available Not available Not available 04/23/2025 28047 3 RxNorm Luciana servin, [place] - [facility] 14:25:27 1104 Avelox medicatio n Not available Not available Not available 04/23/2025 75667 6 RxNorm Luciana servin, [place] - [facility] 5 14:25:52 1105 metformin medicatio n other Not available low 04/23/20252023 6809 RxNorm GI issue s [place] - [facility] 5 14:26:11 1253 Product containin g angiotens in-conver ting enzyme inhibitor (product) medicatio n cough moderate Not available 06/26/2025 28174 009 SNOMED Not Available taisha - [employer] - prod 5 10:54:20 1254 metformin hydrochlo ride medicatio n Not available Not available Not available 06/26/2025 04881 3 RxNorm Not Available taisha - [employer] - prod 5 10:54:20 1358 ceftriaxo ne medicatio n rash moderate Not available 07/15/2025 2193 RxNorm Not Available [employer] - prod 5 10:18:57 1359 droperido l medicatio n dyspnea Not available Not available 07/15/2025 3648 RxNorm Not Available [employer] - prod 5 10:18:57 1360 moxifloxa beck medicatio n rash moderate Not available 07/15/2025 49342 2 RxNorm Not Available [employer] - prod 5 10:18:57 1461 moxifloxa bcek hydrochlo ride medicatio n Not available Not available Not available 08/24/20252015 14549 0 RxNorm Not Available [employer] - prod 5 04:35:37 Medications [...] /min 16 /min 97.9 [degF] 90 % 121/64 mm[Hg] Mary Miranda [place] - [facility] 5 12:57:01 Date Recorded Heart rate Respiratory rate Body temperature Oxygen saturation Systolic And Diastolic Provider Name and Address Organization Details Last Updated DateTime 5 78 /min 16 /min 98.1 [degF] 90 % 159/75 mm[Hg] Paula Licea [place] [...] MD Main Office [address] [place] [address] 06/02/2025 10:25:50 06/02/2025 14:14:27 [id number] Manfred Shelton MD Main Office [address] [place] [address] 06/03/2025 10:16:52 06/03/2025 14:45:20 [id number] Manfred Shelton MD Main Office [address] [place] [address] 06/04/2025 10:31:23 06/04/2025 13:58:07 [id number] Manfred Shelton MD Main Office [address] [place] [address] 06/04/2025 14:13:52 06/04/2025 14:25:08 [id number] Manfred Shelton MD Main Office [address] [place] [address] 06/05/2025 10:55:07 06/05/2025 16:50:44 [id number] Manfred Shelton MD Main Office [address] [place] [address] 06/08/2025 10:25:37 06/08/2025 14:39:12 [id number] Manfred Shelton MD Main Office [address] [place] [address] 06/10/2025 10:19:13 06/10/2025 13:21:20 [id number] Manfred Shelton MD Main Office [address] [place] [address] 06/11/2025 10:35:04 06/11/2025 14:11:07 [id number] Manfred Shelton MD Main Office [address] [place] [address] 06/12/2025 10:59:45 06/12/2025 14:56:49 [id number] Manfred Shelton MD Main Office [address] [place] [address] 06/15/2025 10:50:33 06/15/2025 13:14:21 [id number] Manfred Shelton MD Main Office [address] [place] [address] 06/16/2025 10:14:56 06/16/2025 13:52:36 [id number] Manfred Shelton MD Main Office [address] [place] [address] 06/17/2025 10:28:52 06/17/2025 13:18:56 [id number] Manfred Shelton MD Main Office [address] [place] [address] 06/18/2025 10:16:09 06/18/2025 13:16:04 [id number] Manfred Shelton MD Main Office [address] [place] , [place] [address] 06/19/2025 10:44:19 06/19/2025 14:15:39 [id number] COLEMAN JUDI, TRANSIT PROOF MACHINE OPERATOR Main Office [address] [place] , [place] [address] 06/22/2025 10:36:06 06/22/2025 14:32:28 [id number] Manfred Shelton MD Main Office [address] [place] , [place] [address] 06/23/2025 10:18:15 06/23/2025 14:03:00 [id number] Manfred Shelton MD Main Office [address] [place] , [place] [address] 06/24/2025 10:23:16 06/24/2025 13:37:08 [id number] Manfred Shelton MD Main Office [address] [place] , [place] [address] 06/25/2025 10:19:36 06/25/2025 14:27:35 [id number] Manfred Shelton MD Main Office [address] [place] , [place] [address] 06/26/2025 10:52:38 06/26/2025 16:27:47 [id number] Manfred Shelton MD Main Office [address] [place] , [place] [address] 06/29/2025 10:44:14 06/29/2025 13:39:12 [id number] Manfred Shelton MD Main Office [address] [place] , [place] [address] 06/30/2025 10:42:21 06/30/2025 13:46:39 Health Concerns Section Related Observation LastModified by Organization Detai ls LastModified Time None Recorded Concern Status LastModified by Organization Details LastModified Time None Recorded Payers Encounter Date Sequence Insurance Name Policy Number Policy Gonzales Covered Member ID Gonzales Member ID Guarantor Name 06/30/2025 2 [employer] [facility] Seema Delacruz [id number] Seema Delacruz 06/30/2025 1 [employer] Seema Delacruz [id number] Seema Delacruz OBGyn Episode No OBEpisode recorded.
--- OUTSIDE RECORDS SUMMARY | 2025-09-16 16:40 | XMS_ITS | Data Portability ---
Author Organization [place] [facility], Main Office Address [address] [place] [address] Care Team Providers Care Medical Records Library Professor Name Role Phone YUSUF KEYES Primary Care Provider Assessment No assessment recorded. [...] By Organization Details Last Modified Time 08/25/2025 [id number] BACKGROUND: Seema Delacruz is a 55 y.o. [...] antibiotics for an upper respiratory infection. Nicolasa DIVING INSTRUCTOR 07Aug- Patient cleared for HBOT today. VS stable. PAtient had little trouble reaching pressure today, but had to come out of chamber early due to needing to use restroom. She managed to do 4 segs-118 minutes. Israel.Tanner DIVING INSTRUCTOR 08Aug - Patient cleared for HBOT today. VS stable. Patient completed full session with no problem. Antoinette Lau DIVING INSTRUCTOR 11Aug - Patient cleared for HBOT [...] bit higher on a daily basis. Nicolasa DIVING INSTRUCTOR 12Aug - Patient cleared for HBOT today. VS stable. Patient completed full session with no problem. Antoinette Lau DIVING INSTRUCTOR 13Aug - Patient cleared for HBOT today. VS stable. Patient completed full session with no problem. Wound care to follow treatment today. Antoinette Lau APRN 14Aug - Patient cleared for HBOT today. VS stable. Patient completed full session with no problem. Antoinette Lau DIVING INSTRUCTOR 15Aug - Patient cleared for HBOT [...] attempt to try again on Sunday. Nicolasa DIVING INSTRUCTOR 18Aug - Patient cleared for HBOT today. VS stable. Patient completed full session with no problem. Antoinette Lau DIVING INSTRUCTOR 19Aug - Patient deemed safe for [...] change today per nursing. [facility] 25Aug - Patient deemed safe for HBOT [...] session free of problem. [facility] 29Aug - Cleared for HBOT his date [...] was discharged with 92. [facility] 08Sep - Patient deemed safe for HBOT today. VS stable. Patient completed full session with no problem. [place].Jessica Lau APRN 10Sep - Patient deemed safe for HBOT today. VS stable. Patient completed full session with no problem. Antoinette Lau APRN 11Sep - Patient cleared for HBOT today. VS stable. Patient completed full session with no problem. [place].MonicaDeepali Lau DIVING INSTRUCTOR 12Sep - Found safe for HBOT this date. Completed curtailed session free of problem. Session shortened to satisfy demand of ride provider. [facility] 15Sep - Patient cleared for HBOT today. VS stable. Patient completed full session with no problem. Antoinette Lau APRN 16Sep - Patient cleared for HBOT today. VS stable. Patient completed full session with no problem. Antoinette Lau APRN 17Sep - Patient cleared for HBOT today. VS stable. Patient completed full session with no problem. IsraelIlsa Lau APRN 18Sep - Patient cleared for [...] full session with no problem. IsraelIlsa Lau DIVING INSTRUCTOR 26Sep - Deemed safe for HBOT on this date and completed the full session uneventfully. [facility] 29Sep - Patient cleared for HBOT today. VS stable. Patient completed 3 Seg session with no problem. M.ADeepali Lau DIVING INSTRUCTOR 30Sep - Patient cleared for HBOT today. VS stable. Patient completed full session with no problem. M.Jessica Lau DIVING INSTRUCTOR 01Oct - Patient cleared for HBOT today. VS stable. Patient completed full session with no problem. [place].Jessica Lau DIVING INSTRUCTOR 02Oct - Cleared for HBOT this date and completed full session free of problem. [facility] 03Oct - Deemed safe for HBOT today and completed her full session without problem. [facility] 06Oct - Found safe for HBOT this date and tolerated her session free of problem. [facility] 07Oct- Cleared for HBOT this date and completed the full session without problem. [facility] 08Oct - Glu on arrival marginal so given caloric intake first and then cleared for HBOT this day. Had no problem completing full session emerging at Glu 139. [facility] 09Oct - Deemed safe for HBOT today and completed full session without problem. [facility] 14Oct - Patient returns after being out ill. Cleared for HBOT today. VS stable. Patient completed full session with no problem. [place].Jessica Lau DIVING INSTRUCTOR 15Oct - Patient cleared for HBOT today. VS stable. Patient completed full session with no problem. [place].Jessica Lau DIVING INSTRUCTOR 16Oct - Patient cleared for HBOT today. VS stable. Patient completed full session with no problem. M.Jessica Lau DIVING INSTRUCTOR 17Oct - Patient cleared for HBOT today. VS stable. Patient completed full session with no problem. [place].Jessica Lau DIVING INSTRUCTOR 20Oct - Patient an hour late today due to transportation company. She can only do an hour, or she will not have a ride back home. Cleared for HBOT, VS stable. Finished 1 hour session with no issues or complaints. Israel.Tanner DIVING INSTRUCTOR 21Oct - Patient cleared for HBOT today. VS stable. Patient completed full session with no problem. M.Jessica Lau DIVING INSTRUCTOR 22Oct - Patient cleared for HBOT today. VS stable. Patient completed full session with no problem. M.Jessica Lau DIVING INSTRUCTOR 23Oct - Patient cleared for HBOT today. VS stable. Patient completed full session with no problem. Antoinette Lau APRN 24Oct - Deemed safe for HBOT this date and did complete full session without problem. [facility] 27Oct - Patient cleared for HBOT today. [...] SANTY today with no issues. Antoinette Lau DIVING INSTRUCTOR 05-07Nov - patient out ill - STEARNS 10Nov - Patient deemed safe for HBOT today. VS stable. Patient completed full session with no issues or problem. [place].Monica. Aristes DIVING INSTRUCTOR 11Nov - Patient cleared for HBOT today. VS stable. Patient completed full session with no problem. [place].Monica. Aristes DIVING INSTRUCTOR 12Nov - Patient deemed safe for HBOT today. VS stable. Patient able to complete full session with no issues or problems. Wound care done after treatment today. [place].Monica. Aristes DIVING INSTRUCTOR 13Nov - Patient cleared for HBOT today. VS stable. Patient able to complete full session with no issues or problems. [place].Monica. Judi DIVING INSTRUCTOR 14Nov - Deemed safe for HBOT today and completed full session uneventfully. Additional care: 10886-00 for DX L97.512 and Ell.621 - Following [...] nor deeper tissue infection. Patient states her fixed income manager, Dr Ortiz, has already ordered MRI but [...] with no issues or problems. [place].MonicaDeepali Lau DIVING INSTRUCTOR 18-21Nov - patient out ill - [place] 24Nov - Patient deemed safe for HBOT today. VS stable. Patient able to complete full session with no problems or issues. IsraelIlsa Lau APRN 25Nov - Patient cleared for HBOT today. VS stable. Patient able to complete full session with no issues or problems. Antoinette Lau SHIRA Not available 08/25/2025 13:49:04 08/31/2025 [id number] BACKGROUND: Seema Delacruz is a 55 y.o. [...] Diagnosis: L97.512, E11.621 Session Notes: Today's Date 31Aug2025 HBOT session 72 of 80 Next HBOT [id number] 30Jul - Patient cleared for 1st HBOT [...] have her wear ear plugs during treatment. IsraelCarlo HUTTONN 31July - Patient cleared for HBOT [...] was slightly red, but she was asymptomatic. IsraelCarlo SILVA 01Aug - Patient deemed safe for HBOT today. VS stable. Patient completed full session with no problem. IsraelIlsa Lau APRN 04Aug - Patient deemed safe [...] in antibiotics for an upper respiratory infection. ClaytonTanner HUTTONN 07Aug- Patient cleared for HBOT today. VS stable. PAtient had little trouble reaching pressure today, but had to come out of chamber early due to needing to use restroom. She managed to do 4 segs-118 minutes. IsraelCarlo SILVA 08Aug - Patient cleared for HBOT today. VS stable. Patient completed full session with no problem. Antoinette Lau APRN 11Aug - Patient cleared for [...] bit higher on a daily basis. Nicolasa DIVING INSTRUCTOR 12Aug - Patient cleared for HBOT today. VS stable. Patient completed full session with no problem. Antoinette Lau DIVING INSTRUCTOR 13Aug - Patient cleared for HBOT today. VS stable. Patient completed full session with no problem. Wound care to follow treatment today. Antoinette Lau DIVING INSTRUCTOR 14Aug - Patient cleared for HBOT today. VS stable. Patient completed full session with no problem. Antoinette Lau DIVING INSTRUCTOR 15Aug - Patient cleared for HBOT [...] attempt to try again on Sunday. Nicolasa DIVING INSTRUCTOR 18Aug - Patient cleared for HBOT today. VS stable. Patient completed full session with no problem. Antoinette Lau DIVING INSTRUCTOR 19Aug - Patient deemed safe for HBOT today. VS stable. FSBS within range. Patient completed full session with no problem. Antoinette Lau DIVING INSTRUCTOR 2015Aug - Patient cleared for HBOT today. VS stable. Soon after reaching pressure, patient states that she is having anxiety, and wants to come out of chamber. We tried turning down pressure, and giving an air break, but she still insist on coming out. We brought her out, VS stable, wound care done. Israel.Tanner HUTTONN 21Aug - Patient deemed safe for HBOT today. VS stable. FSBS within range. Patient completed full session with no problem. Patient better tolerated treatment today in larger chamber with no reports of anxiety during treatment. Antoinette Sotowood DIVING INSTRUCTOR 22Aug - Cleared for HBOT this date [...] session free of problem. [facility] 29Aug - Cleared for HBOT his date [...] full session with no problem. Antoinette Lau DIVING INSTRUCTOR 10Sep - Patient deemed safe for [...] full session with no problem. [place].Jessica Lau DIVING INSTRUCTOR 18Sep - Patient cleared for HBOT today. [...] was to proceed to another medical appointment. [facility] 22Sep - Patient cleared for HBOT today. [...] the full session uneventfully. [facility] 29Sep - Patient cleared for HBOT today. VS stable. Patient completed 3 Seg session with no problem. Antoinette Lau APRN 30Sep - Patient cleared for HBOT today. VS stable. Patient completed full session with no problem. Antoinette Lau APRN 01Oct - Patient cleared for HBOT today. VS stable. Patient completed full session with no problem. Antoinette Lau APRN 02Oct - Cleared for HBOT this date and completed full session free of problem. [facility] 03Oct - Deemed safe for HBOT today and completed her full session without problem. LIBAN 06Oct - Found safe for HBOT this date and tolerated her session free of problem. LEXIS WATERS 07Oct- Cleared for HBOT this date and completed the full session without problem. [facility] 08Oct - Glu on arrival marginal so given caloric intake first and then cleared for HBOT this day. Had no problem completing full session emerging at Glu 139. LIBAN 09Oct - Deemed safe for HBOT today and completed full session without problem. [facility] 14Oct - Patient returns after being out ill. Cleared for HBOT today. VS stable. Patient completed full session with no problem. Antoinette Lau DIVING INSTRUCTOR 15Oct - Patient cleared for HBOT today. VS stable. Patient completed full session with no problem. [place].Jessica Lau DIVING INSTRUCTOR 16Oct - Patient cleared for HBOT today. VS stable. Patient completed full session with no problem. [place].Jessica Lau DIVING INSTRUCTOR 17Oct - Patient cleared for HBOT today. VS stable. Patient completed full session with no problem. Antoinette Lau DIVING INSTRUCTOR 20Oct - Patient an hour late today due to transportation company. She can only do an hour, or she will not have a ride back home. Cleared for HBOT, VS stable. Finished 1 hour session with no issues or complaints. Israel.Tanner DIVING INSTRUCTOR 21Oct - Patient cleared for HBOT today. VS stable. Patient completed full session with no problem. [place].Jessica Lau DIVING INSTRUCTOR 22Oct - Patient cleared for HBOT today. VS stable. Patient completed full session with no problem. [place].Jessica Lau DIVING INSTRUCTOR 23Oct - Patient cleared for HBOT today. VS stable. Patient completed full session with no problem. Antoinette Lau APRN 24Oct - Deemed safe for HBOT this date and did complete full session without problem. [facility] 27Oct - Patient cleared for HBOT today. [...] session with no other problem. Antoinette Lau DIVING INSTRUCTOR 28Oct - Patient cleared for HBOT today, [...] in Augmentin to her pharmacy. Antoinette Lau DIVING INSTRUCTOR 29Oct - Patient deemed safe for HBOT today. VS stable. Patient completed full session with no issues or problem. Antoinette Lau DIVING INSTRUCTOR 30Oct - Cleared for HBOT this day and completed full session free of problem. [facility] 31Oct - See E&M visit note 03Nov - Patient deemed safe for HBOT today. VS stable. Patient completed full session with no issues or problem, Pt was able to make it to 1.75 SANTY today with minimal discomfort. Antoinette Lau DIVING INSTRUCTOR 04Nov - Patient deemed safe for HBOT today. VS stable. Patient completed full session with no issues or problem, Patient was able to reach 2.0 SANTY today with no issues. Antoinette Lau DIVING INSTRUCTOR 05-07Nov - patient out ill - STEAR[place] 10Nov - Patient deemed safe for HBOT today. VS stable. Patient completed full session with no issues or problem. Antoinette Lau DIVING INSTRUCTOR 11Nov - Patient cleared for HBOT today. VS stable. Patient completed full session with no problem. Antoinette Lau DIVING INSTRUCTOR 12Nov - Patient deemed safe for HBOT today. VS stable. Patient able to complete full session with no issues or problems. Wound care done after treatment today. Antoinette Lau DIVING INSTRUCTOR 13Nov - Patient cleared for HBOT today. VS stable. Patient able to complete full session with no issues or problems. Antoinette Lau DIVING INSTRUCTOR 14Nov - Deemed safe for HBOT today and completed full session uneventfully. Additional care: [id number] for DX L97.512 and Ell.621 - Following [...] nor deeper tissue infection. Patient states her fixed income manager, Dr Ortiz, has already ordered MRI but [...] with no issues or problems. Antoinette Lau DIVING INSTRUCTOR 18-21Nov - patient out ill - STEARNS 24Nov - Patient deemed safe for HBOT today. VS stable. Patient able to complete full session with no problems or issues. Antoinette Lau DIVING INSTRUCTOR 25Nov - Patient cleared for HBOT today. VS stable. Patient able to complete full session with no issues or problems. Antoinette Lau APRN 01Dec - Patient deemed safe for HBOT today. VS stable. Patient able to complete full session with no problems or issues. Antoinette Lau APRN Not available 08/31/2025 13:53:47 09/07/2025 [id number] BACKGROUND: Seema Delacruz is a 55 y.o. [...] Diagnosis: L97.512, E11.621 Session Notes: Today's Date [id number] HBOT session 73 of 80 Next HBOT [id number] 30Jul - Patient cleared for 1st HBOT [...] have her wear ear plugs during treatment. Nicolaas DIVING INSTRUCTOR 31July - Patient cleared for HBOT [...] slightly red, but she was asymptomatic. Nicolasa DIVING INSTRUCTOR 01Aug - Patient deemed safe for HBOT today. VS stable. Patient completed full session with no problem. Antoinette Lau DIVING INSTRUCTOR 04Aug - Patient deemed safe for HBOT today. VS stable. Patient completed full session with no problem. Antoinette Lau DIVING INSTRUCTOR 05Aug - patient out for another [...] antibiotics for an upper respiratory infection. Nicolasa DIVING INSTRUCTOR 07Aug- Patient cleared for HBOT today. VS stable. PAtient had little trouble reaching pressure today, but had to come out of chamber early due to needing to use restroom. She managed to do 4 segs-118 minutes. Maynorleyla HUTTONN 08Aug - Patient cleared for HBOT today. VS stable. Patient completed full session with no problem. Antoinette Lau DIVING INSTRUCTOR 11Aug - Patient cleared for HBOT [...] a bit higher on a daily basis. Maynorleyla SILVA 12Aug - Patient cleared for HBOT today. VS stable. Patient completed full session with no problem. [place].Jessica Lau DIVING INSTRUCTOR 13Aug - Patient cleared for HBOT today. VS stable. Patient completed full session with no problem. Wound care to follow treatment today. [place].Jessica Lau DIVING INSTRUCTOR 14Aug - Patient cleared for HBOT today. VS stable. Patient completed full session with no problem. [place].Jessica Lau DIVING INSTRUCTOR 15Aug - Patient cleared for HBOT [...] will attempt to try again on Sunday. [place].Tanner DIVING INSTRUCTOR 18Aug - Patient cleared for HBOT today. VS stable. Patient completed full session with no problem. [place].Jessica Lua DIVING INSTRUCTOR 19Aug - Patient deemed safe for HBOT today. VS stable. FSBS within range. Patient completed full session with no problem. [place].Jessica Lau DIVING INSTRUCTOR 2015Aug - Patient cleared for HBOT today. VS stable. Soon after reaching pressure, patient states that she is having anxiety, and wants to come out of chamber. We tried turning down pressure, and giving an air break, but she still insist on coming out. We brought her out, VS stable, wound care done. [place].Tanner DIVING INSTRUCTOR 21Aug - Patient deemed safe for HBOT today. VS stable. FSBS within range. Patient completed full session with no problem. Patient better tolerated treatment today in larger chamber with no reports of anxiety during treatment. [place].Jessica Lau DIVING INSTRUCTOR 22Aug - Cleared for HBOT this date and did complete full session with no problem including no significant anxiety. Dressing change today per nursing. [facility] 25Aug - Patient deemed safe for HBOT today. VS stable. Patient completed full session with no problem. Antoinette Lau DIVING INSTRUCTOR 26Aug - Patient cleared for HBOT today. [...] full session with no problem. Antoinette Lau DIVING INSTRUCTOR 12Sep - Found safe for HBOT [...] full session with no problem. M.A. Judi DIVING INSTRUCTOR 18Sep - Patient cleared for HBOT today. [...] full session with no problem. [place].MonicaDeepali Lau DIVING INSTRUCTOR 19Sep - today patient arrived with suitable [...] full session with no problem. [place].Jessica Lau DIVING INSTRUCTOR 23Sep - Patient cleared for HBOT today. VS stable. Patient completed full session with no problem. M.MonicaDeepali Lau DIVING INSTRUCTOR 24Sep - Patient cleared for HBOT today. VS stable. Patient completed full session with no problem. [place].MonicaDeepali Lau DIVING INSTRUCTOR 25Sep - Patient cleared for HBOT today. VS stable. Patient completed full session with no problem. [place].MonicaDeepali Lau DIVING INSTRUCTOR 26Sep - Deemed safe for HBOT on this date and completed the full session uneventfully. LEXIS WATERS 29Sep - Patient cleared for HBOT today. VS stable. Patient completed 3 Seg session with no problem. [place].MonicaDeepali Lau DIVING INSTRUCTOR 30Sep - Patient cleared for HBOT today. VS stable. Patient completed full session with no problem. [place].MonicaDeepali Lau DIVING INSTRUCTOR 01Oct - Patient cleared for HBOT today. VS stable. Patient completed full session with no problem. [place].MonicaDeepali Lau DIVING INSTRUCTOR 02Oct - Cleared for HBOT this date and completed full session free of problem. Estefania WATERS 03Oct - Deemed safe for HBOT today and completed her full session without problem. LEXIS WATERS 06Oct - Found safe for HBOT this date and tolerated her session free of problem. LEXIS WATERS 07Oct- Cleared for HBOT this date and completed the full session without problem. JMEstefania WATERS 08Oct - Glu on arrival marginal so given caloric intake first and then cleared for HBOT this day. Had no problem completing full session emerging at Glu 139. [facility] 09Oct - Deemed safe for HBOT today and completed full session without problem. [facility] 14Oct - Patient returns after being out ill. Cleared for HBOT today. VS stable. Patient completed full session with no problem. M.ADeepali Lau DIVING INSTRUCTOR 15Oct - Patient cleared for HBOT today. VS stable. Patient completed full session with no problem. M.A. Judi DIVING INSTRUCTOR 16Oct - Patient cleared for HBOT today. VS stable. Patient completed full session with no problem. M.A. Aristes DIVING INSTRUCTOR 17Oct - Patient cleared for HBOT today. VS stable. Patient completed full session with no problem. [place].MonicaDeepali Lau DIVING INSTRUCTOR 20Oct - Patient an hour late today due to transportation company. She can only do an hour, or she will not have a ride back home. Cleared for HBOT, VS stable. Finished 1 hour session with no issues or complaints. [place].A.Judi DIVING INSTRUCTOR 21Oct - Patient cleared for HBOT today. VS stable. Patient completed full session with no problem. M.A. Judi DIVING INSTRUCTOR 22Oct - Patient cleared for HBOT today. VS stable. Patient completed full session with no problem. [place].A. Aristes DIVING INSTRUCTOR 23Oct - Patient cleared for HBOT today. VS stable. Patient completed full session with no problem. [place].Monica. Judi DIVING INSTRUCTOR 24Oct - Deemed safe for HBOT this date and did complete full session without problem. [facility] 27Oct - Patient cleared for HBOT today. [...] completed full session with no other problem. [place].Jessica Lau DIVING INSTRUCTOR 28Oct - Patient cleared for HBOT today, [...] in Augmentin to her pharmacy. Antoinette Lau DIVING INSTRUCTOR 29Oct - Patient deemed safe for HBOT today. VS stable. Patient completed full session with no issues or problem. Antoinette Lau DIVING INSTRUCTOR 30Oct - Cleared for HBOT this day and completed full session free of problem. [facility] 31Oct - See E&M visit note 03Nov - Patient deemed safe for HBOT today. VS stable. Patient completed full session with no issues or problem, Pt was able to make it to 1.75 SANTY today with minimal discomfort. [place].Jessica Lau DIVING INSTRUCTOR 04Nov - Patient deemed safe for HBOT today. VS stable. Patient completed full session with no issues or problem, Patient was able to reach 2.0 SANTY today with no issues. Antoinette Lau DIVING INSTRUCTOR 05-07Nov - patient out ill - STEARNS 10Nov - Patient deemed safe for HBOT today. VS stable. Patient completed full session with no issues or problem. Antoinette Lau DIVING INSTRUCTOR 11Nov - Patient cleared for HBOT today. VS stable. Patient completed full session with no problem. [place].Jessica Lau DIVING INSTRUCTOR 12Nov - Patient deemed safe for HBOT today. VS stable. Patient able to complete full session with no issues or problems. Wound care done after treatment today. Antoinette Lau DIVING INSTRUCTOR 13Nov - Patient cleared for HBOT today. VS stable. Patient able to complete full session with no issues or problems. [place].Jessica Lau DIVING INSTRUCTOR 14Nov - Deemed safe for HBOT today and completed full session uneventfully. Additional care: [id number] for DX L97.512 and Ell.621 - Following [...] nor deeper tissue infection. Patient states her fixed income manager, Dr Ortiz, has already ordered MRI but [...] with no issues or problems. Antoinette Lau DIVING INSTRUCTOR 18-21Nov - patient out ill - STEAR[place] 24Nov - Patient deemed safe for HBOT today. VS stable. Patient able to complete full session with no problems or issues. [place].Jessica Lau DIVING INSTRUCTOR 25Nov - Patient cleared for HBOT today. VS stable. Patient able to complete full session with no issues or problems. [place].Jessica Lau APRN 01Dec - Patient deemed safe for HBOT today. VS stable. Patient able to complete full session with no problems or issues. Antoinette Lau APRN 02-07Dec - Patient out due to illness - STEARNS 08Dec - Patient cleared for HBOT today. VS stable. Patient able to complete full session with no issues. Antoinette Lau APRN Not available 09/07/2025 14:13:41 09/14/2025 [id number] BACKGROUND: Seema Delacruz is a 55 y.o. [...] Diagnosis: L97.512, E11.621 Session Notes: Today's Date [id number] HBOT session 73 of 80 Next HBOT [id number] 30Jul - Patient cleared for 1st HBOT [...] was slightly red, but she was asymptomatic. [place].MonicaIsael HUTTONN 01Aug - Patient deemed safe for HBOT today. VS stable. Patient completed full session with no problem. [place].Jessica Judi DIVING INSTRUCTOR 04Aug - Patient deemed safe for HBOT today. VS stable. Patient completed full session with no problem. Antoinette Judi HUTTONN 05Aug - patient out for another appt. [...] in antibiotics for an upper respiratory infection. [place].JessicaJudi HUTTONN 07Aug- Patient cleared for HBOT today. VS stable. PAtient had little trouble reaching pressure today, but had to come out of chamber early due to needing to use restroom. She managed to do 4 segs-118 minutes. [place].MonicaIsael HUTTONN 08Aug - Patient cleared for HBOT today. VS stable. Patient completed full session with no problem. Antoinette Judi DIVING INSTRUCTOR 11Aug - Patient cleared for HBOT [...] a bit higher on a daily basis. CompaIsael HUTTONN 12Aug - Patient cleared for HBOT today. VS stable. Patient completed full session with no problem. [place].MonicaDeepali Lau APRN 13Aug - Patient cleared for HBOT today. VS stable. Patient completed full session with no problem. Wound care to follow treatment today. Antoinette Lau DIVING INSTRUCTOR 14Aug - Patient cleared for HBOT today. VS stable. Patient completed full session with no problem. Antoinette Lau DIVING INSTRUCTOR 15Aug - Patient cleared for HBOT [...] attempt to try again on Sunday. Nicolasa DIVING INSTRUCTOR 18Aug - Patient cleared for HBOT today. VS stable. Patient completed full session with no problem. Antoinette Lau DIVING INSTRUCTOR 19Aug - Patient deemed safe for HBOT today. VS stable. FSBS within range. Patient completed full session with no problem. Antoinette Lau DIVING INSTRUCTOR 2015Aug - Patient cleared for HBOT today. VS stable. Soon after reaching pressure, patient states that she is having anxiety, and wants to come out of chamber. We tried turning down pressure, and giving an air break, but she still insist on coming out. We brought her out, VS stable, wound care done. Nicolasa DIVING INSTRUCTOR 21Aug - Patient deemed safe for HBOT today. VS stable. FSBS within range. Patient completed full session with no problem. Patient better tolerated treatment today in larger chamber with no reports of anxiety during treatment. Antoinette Lau DIVING INSTRUCTOR 22Aug - Cleared for HBOT this date and did complete full session with no problem including no significant anxiety. Dressing change today per nursing. [facility] 25Aug - Patient deemed safe for HBOT today. VS stable. Patient completed full session with no problem. Antoinette Lau DIVING INSTRUCTOR 26Aug - Patient cleared for HBOT today. VS stable. Patient completed full session with no problem. I spoke with patient, and she feels much better in the larger chamber, having almost no anxiety at all now. Antoinette Sotoleyla HUTTONN 27Aug - Patient deemed safe for HBOT today. VS stable. FSBS within range. Patient completed full session with no problem. Antoinette Lau APRN 28Aug - Found safe for HBOT this date andcompleted full session free of problem. [facility] 29Aug - Cleared for HBOT his date [...] full session with no problem. [place].MonicaDeepali Lau DIVING INSTRUCTOR 04Sep - Patient deemed safe for HBOT today. VS stable. Patient completed full session with no problem. Pt had wound care as well as an orange juice after tx bc her sugar was 72 coming out. Sat for about 15/20 minutes before getting up. IsraelIlsa Lau APRN 05Sep - Found safe for [...] full session with no problem. Antoinette Lau DIVING INSTRUCTOR 11Sep - Patient cleared for HBOT today. VS stable. Patient completed full session with no problem. IsraelDeepaliMonicaDeepali Lau DIVING INSTRUCTOR 12Sep - Found safe for HBOT [...] full session with no problem. Antoinette Lau DIVING INSTRUCTOR 18Sep - Patient cleared for HBOT today. [...] full session with no problem. Antoinette Lau DIVING INSTRUCTOR 19Sep - today patient arrived with suitable [...] full session with no problem. Antoinette Lau DIVING INSTRUCTOR 26Sep - Deemed safe for HBOT on [...] session with no problem. Antoinette Lau APRN 02Oct - Cleared for HBOT this date and completed full session free of problem. Estefania WATERS 03Oct - Deemed safe for HBOT today and completed her full session without problem. LEXIS WATERS 06Oct - Found safe for HBOT this date and tolerated her session free of problem. LEXIS WATERS 07Oct- Cleared for HBOT this date and completed the full session without problem. LEXIS WATERS 08Oct - Glu on arrival marginal so given caloric intake first and then cleared for HBOT this day. Had no problem completing full session emerging at Glu 139. LEXIS WATERS 09Oct - Deemed safe for HBOT today and completed full session without problem. [facility] 14Oct - Patient returns after being out ill. Cleared for HBOT today. VS stable. Patient completed full session with no problem. [place].Monica. Judi DIVING INSTRUCTOR 15Oct - Patient cleared for HBOT today. VS stable. Patient completed full session with no problem. [place].Jessica Judi DIVING INSTRUCTOR 16Oct - Patient cleared for HBOT today. VS stable. Patient completed full session with no problem. [place].Monica. Judi DIVING INSTRUCTOR 17Oct - Patient cleared for HBOT today. VS stable. Patient completed full session with no problem. [place].Jessica Judi DIVING INSTRUCTOR 20Oct - Patient an hour late today due to transportation company. She can only do an hour, or she will not have a ride back home. Cleared for HBOT, VS stable. Finished 1 hour session with no issues or complaints. [place].JessicaJudi DIVING INSTRUCTOR 21Oct - Patient cleared for HBOT today. VS stable. Patient completed full session with no problem. [place].Jessica Judi DIVING INSTRUCTOR 22Oct - Patient cleared for HBOT today. VS stable. Patient completed full session with no problem. [place].Jessica Judi DIVING INSTRUCTOR 23Oct - Patient cleared for HBOT today. VS stable. Patient completed full session with no problem. [place].Jessica Judi DIVING INSTRUCTOR 24Oct - Deemed safe for HBOT this date and did complete full session without problem. [facility] 27Oct - Patient cleared for HBOT today. [...] completed full session with no other problem. CompaDeepali Lau DIVING INSTRUCTOR 28Oct - Patient cleared for HBOT today, [...] in Augmentin to her pharmacy. Antoinette Lau DIVING INSTRUCTOR 29Oct - Patient deemed safe for HBOT today. VS stable. Patient completed full session with no issues or problem. [place].Jessica Lau DIVING INSTRUCTOR 30Oct - Cleared for HBOT this day and completed full session free of problem. [facility] 31Oct - See E&M visit note 03Nov - Patient deemed safe for HBOT today. VS stable. Patient completed full session with no issues or problem, Pt was able to make it to 1.75 SANTY today with minimal discomfort. [place].Jessica Lau DIVING INSTRUCTOR 04Nov - Patient deemed safe for HBOT today. VS stable. Patient completed full session with no issues or problem, Patient was able to reach 2.0 SANTY today with no issues. [place].Jessica Lau DIVING INSTRUCTOR 05-07Nov - patient out ill - STEARNS 10Nov - Patient deemed safe for HBOT today. VS stable. Patient completed full session with no issues or problem. [place].Jessica Lau DIVING INSTRUCTOR 11Nov - Patient cleared for HBOT today. VS stable. Patient completed full session with no problem. [place].Jessica Lau DIVING INSTRUCTOR 12Nov - Patient deemed safe for HBOT today. VS stable. Patient able to complete full session with no issues or problems. Wound care done after treatment today. [place].Jessica Lau DIVING INSTRUCTOR 13Nov - Patient cleared for HBOT today. VS stable. Patient able to complete full session with no issues or problems. [place].Jessica Lau DIVING INSTRUCTOR 14Nov - Deemed safe for HBOT today and completed full session uneventfully. Additional care: [id number] for DX L97.512 and Ell.621 - Following [...] nor deeper tissue infection. Patient states her fixed income manager, Dr Ortiz, has already ordered MRI but [...] with no issues or problems. Antoinette Lau APRN 18-21Nov - patient out ill - STEAR[place] 24Nov - Patient deemed safe for HBOT today. VS stable. Patient able to complete full session with no problems or issues. [place].Jessica Lau DIVING INSTRUCTOR 25Nov - Patient cleared for HBOT today. VS stable. Patient able to complete full session with no issues or problems. [place].Jessica Lau APRN 01Dec - Patient deemed safe for HBOT today. VS stable. Patient able to complete full session with no problems or issues. [place].Jessica Lau APRN 02-07Dec - Patient out due to illness - STEAR[place] 08Dec - Patient cleared for HBOT today. VS stable. Patient able to complete full session with no issues. [place].Jessica Lau APRN 15Dec - Patient cleared for HBOT today. [...] no other problems or issues. Antoinette Lau APRN Not available 09/14/2025 14:55:53 09/15/2025 [id number] BACKGROUND: Seema Delacruz is a 55 y.o. [...] Diagnosis: L97.512, E11.621 Session Notes: Today's Date [id number] HBOT session 75 of 80 Next HBOT [id number] 30Jul - Patient cleared for 1st HBOT [...] have her wear ear plugs during treatment. Maynorleyla HUTTONN 31July - Patient cleared for HBOT [...] slightly red, but she was asymptomatic. Nicolasa DIVING INSTRUCTOR 01Aug - Patient deemed safe for HBOT today. VS stable. Patient completed full session with no problem. Antoinette Sotoleyla HUTTONN 04Aug - Patient deemed safe for HBOT today. VS stable. Patient completed full session with no problem. Antoinette Sotoleyla HUTTONN 05Aug - patient out for another appt. [...] in antibiotics for an upper respiratory infection. Maynorleyla HUTTONN 07Aug- Patient cleared for HBOT today. VS stable. PAtient had little trouble reaching pressure today, but had to come out of chamber early due to needing to use restroom. She managed to do 4 segs-118 minutes. Maynorleyla HUTTONN 08Aug - Patient cleared for HBOT today. VS stable. Patient completed full session with no problem. Antoinette Stooleyla HUTTONN 11Aug - Patient cleared for HBOT today. [...] a bit higher on a daily basis. M.Tanner DIVING INSTRUCTOR 12Aug - Patient cleared for HBOT today. VS stable. Patient completed full session with no problem. [place].Jessica Lau DIVING INSTRUCTOR 13Aug - Patient cleared for HBOT today. VS stable. Patient completed full session with no problem. Wound care to follow treatment today. [place].Jessica Lau DIVING INSTRUCTOR 14Aug - Patient cleared for HBOT today. VS stable. Patient completed full session with no problem. [place].Jessica Lau DIVING INSTRUCTOR 15Aug - Patient cleared for HBOT [...] will attempt to try again on Sunday. [place].Tanner DIVING INSTRUCTOR 18Aug - Patient cleared for HBOT today. VS stable. Patient completed full session with no problem. [place].Jessica Lau DIVING INSTRUCTOR 19Aug - Patient deemed safe for HBOT today. VS stable. FSBS within range. Patient completed full session with no problem. [place].Jessica Lau DIVING INSTRUCTOR 2015Aug - Patient cleared for HBOT today. VS stable. Soon after reaching pressure, patient states that she is having anxiety, and wants to come out of chamber. We tried turning down pressure, and giving an air break, but she still insist on coming out. We brought her out, VS stable, wound care done. [place].Tanner DIVING INSTRUCTOR 21Aug - Patient deemed safe for HBOT today. VS stable. FSBS within range. Patient completed full session with no problem. Patient better tolerated treatment today in larger chamber with no reports of anxiety during treatment. [place].Jessica Lau DIVING INSTRUCTOR 22Aug - Cleared for HBOT this date and did complete full session with no problem including no significant anxiety. Dressing change today per nursing. [facility] 25Aug - Patient deemed safe for HBOT today. VS stable. Patient completed full session with no problem. [place].Jessica Lau DIVING INSTRUCTOR 26Aug - Patient cleared for HBOT today. [...] full session with no problem. M.A. Judi DIVING INSTRUCTOR 18Sep - Patient cleared for HBOT today. [...] full session with no problem. [place].Jessica Judi DIVING INSTRUCTOR 19Sep - today patient arrived with suitable [...] completed full session with no problem. [place].Monica. Judi DIVING INSTRUCTOR 23Sep - Patient cleared for HBOT today. VS stable. Patient completed full session with no problem. [place].Jessica Judi DIVING INSTRUCTOR 24Sep - Patient cleared for HBOT today. VS stable. Patient completed full session with no problem. [place].Monica. Judi DIVING INSTRUCTOR 25Sep - Patient cleared for HBOT today. VS stable. Patient completed full session with no problem. [place].MonicaDeepali Lau DIVING INSTRUCTOR 26Sep - Deemed safe for HBOT on this date and completed the full session uneventfully. Estefania WATERS 29Sep - Patient cleared for HBOT today. VS stable. Patient completed 3 Seg session with no problem. [place].Monica. Judi DIVING INSTRUCTOR 30Sep - Patient cleared for HBOT today. VS stable. Patient completed full session with no problem. [place].Monica. Judi DIVING INSTRUCTOR 01Oct - Patient cleared for HBOT today. VS stable. Patient completed full session with no problem. [place].MonicaDeepali Lau DIVING INSTRUCTOR 02Oct - Cleared for HBOT this date and completed full session free of problem. Estefania WATERS 03Oct - Deemed safe for HBOT today and completed her full session without problem. Estefania WATERS 06Oct - Found safe for HBOT this date and tolerated her session free of problem. Estefania WATERS 07Oct- Cleared for HBOT this date and completed the full session without problem. [facility] 08Oct - Glu on arrival marginal so given caloric intake first and then cleared for HBOT this day. Had no problem completing full session emerging at Glu 139. [facility] 09Oct - Deemed safe for HBOT today and completed full session without problem. [facility] 14Oct - Patient returns after being out ill. Cleared for HBOT today. VS stable. Patient completed full session with no problem. M.Jessica Lau DIVING INSTRUCTOR 15Oct - Patient cleared for HBOT today. VS stable. Patient completed full session with no problem. M.ADeepali Lau DIVING INSTRUCTOR 16Oct - Patient cleared for HBOT today. VS stable. Patient completed full session with no problem. M.ADeepali Lau DIVING INSTRUCTOR 17Oct - Patient cleared for HBOT today. VS stable. Patient completed full session with no problem. Antoinette Lau DIVING INSTRUCTOR 20Oct - Patient an hour late today due to transportation company. She can only do an hour, or she will not have a ride back home. Cleared for HBOT, VS stable. Finished 1 hour session with no issues or complaints. M.Tanner DIVING INSTRUCTOR 21Oct - Patient cleared for HBOT today. VS stable. Patient completed full session with no problem. M.ADeepali Lau DIVING INSTRUCTOR 22Oct - Patient cleared for HBOT today. VS stable. Patient completed full session with no problem. M.ADeepali Lau DIVING INSTRUCTOR 23Oct - Patient cleared for HBOT today. VS stable. Patient completed full session with no problem. IsraelIlsa Lau DIVING INSTRUCTOR 24Oct - Deemed safe for HBOT this date and did complete full session without problem. [facility] 27Oct - Patient cleared for HBOT today. [...] session with no other problem. Antoinette Lau DIVING INSTRUCTOR 28Oct - Patient cleared for HBOT today, [...] in Augmentin to her pharmacy. Antoinette Lau DIVING INSTRUCTOR 29Oct - Patient deemed safe for HBOT today. VS stable. Patient completed full session with no issues or problem. Antoinette Lau DIVING INSTRUCTOR 30Oct - Cleared for HBOT this day and completed full session free of problem. [facility] 31Oct - See E&M visit note 03Nov - Patient deemed safe for HBOT today. VS stable. Patient completed full session with no issues or problem, Pt was able to make it to 1.75 SANTY today with minimal discomfort. [place].Jessica Lau DIVING INSTRUCTOR 04Nov - Patient deemed safe for HBOT today. VS stable. Patient completed full session with no issues or problem, Patient was able to reach 2.0 SANTY today with no issues. [place].Jessica Lau DIVING INSTRUCTOR 05-07Nov - patient out ill - STEAR[place] 10Nov - Patient deemed safe for HBOT today. VS stable. Patient completed full session with no issues or problem. [place].Jessica Lau DIVING INSTRUCTOR 11Nov - Patient cleared for HBOT today. VS stable. Patient completed full session with no problem. [place].Jessica Lau DIVING INSTRUCTOR 12Nov - Patient deemed safe for HBOT today. VS stable. Patient able to complete full session with no issues or problems. Wound care done after treatment today. [place].Jessica Lau DIVING INSTRUCTOR 13Nov - Patient cleared for HBOT today. VS stable. Patient able to complete full session with no issues or problems. [place].Jessica Lau DIVING INSTRUCTOR 14Nov - Deemed safe for HBOT today and completed full session uneventfully. Additional care: [id number] for DX L97.512 and Ell.621 - Following [...] nor deeper tissue infection. Patient states her fixed income manager, Dr Ortiz, has already ordered MRI but [...] full session with no issues or problems. .Jessica Lau DIVING INSTRUCTOR 18-21Nov - patient out ill - STE[place] 24Nov - Patient deemed safe for HBOT today. VS stable. Patient able to complete full session with no problems or issues. .Jessica Lau DIVING INSTRUCTOR 25Nov - Patient cleared for HBOT today. VS stable. Patient able to complete full session with no issues or problems. .Jessica Lau DIVING INSTRUCTOR 01Dec - Patient deemed safe for HBOT today. VS stable. Patient able to complete full session with no problems or issues. .Jessica Lau DIVING INSTRUCTOR 02-07Dec - Patient out due to illness - STEAR[place] 08Dec - Patient cleared for HBOT today. VS stable. Patient able to complete full session with no issues. .Jessica Lau DIVING INSTRUCTOR 15Dec - Patient cleared for HBOT today. [...] with no other problems or issues. Antoinette Sotowood DIVING INSTRUCTOR 16Dec - Patient deemed safe for HBOT today. VS stable. Patient able to complete full session with no issues or problems. Antoinette Sotowood DIVING INSTRUCTOR Not available 09/15/2025 12:55:12 Reason for Referral None Reported. Problems Name Problem SNOMED Code Status Onset Date Resolution Date Notes Provider Name and Address Organization Details Recorded Time Upper respiratory infection [id number] Active 2024 COLEMAN LAU NP null, [place] - [facility] 12:18:40 Episodic migraine [id number] Active 2024 COLEMAN LAU NP null, [place] - [facility] 12:34:01 Type 2 diabetes mellitus 13013853 Active 2024 COLEMAN LAU NP null, [place] - [facility] 15:27:12 Refractory migraine with aura 851281166 Active 2024 COLEMAN LAU NP null, [place] - [facility] 10:56:52 Recurrent acute frontal sinusitis Active 2024 COLEMAN LAU NP null, [place] - [facility] 12:47:05 Candidiasis of vagina 62904105 Active 2024 COLEMAN LAU NP null, [place] - [facility] 12:47:26 Acute upper respiratory infection 80937708 Active 2024 COLEMAN LAU NP null, [place] [...] Carolyn roland [place] - [facility] 08/25/2025 12:52:26 08/24/20 25 [facility] Therapy Treatment Form completed Carolyn roland [place] - [facility] 08/24/2025 12:53:43 08/17/20 25 [facility] Therapy Treatment Form completed Carolyn roland [place] - [facility] 08/17/2025 13:02:48 08/14/20 25 [facility] Therapy Treatment Form completed Lisa Sosa [place] - [facility] 08/14/2025 12:43:08 08/13/20 25 [facility] Therapy Treatment Form completed Carolyn roland [place] - [facility] 08/13/2025 12:27:58 08/12/20 25 [facility] Therapy Treatment Form completed Carolyn roland [place] - [facility] 08/12/2025 12:36:02 08/12/20 25 Wound completed COLEMAN LAU NP [place] - [facility] 08/12/2025 14:15:15 08/11/20 25 [facility] Therapy Treatment Form completed Carolyn roland [place] - [facility] 08/11/2025 12:58:18 08/10/20 25 [facility] Therapy Treatment Form completed Carolyn BERNAL - [facility] 08/10/2025 12:57:23 08/04/20 25 [facility] Therapy Treatment Form completed COLEMAN LAU NP [place] - [facility] 08/04/2025 13:51:50 08/03/20 25 [facility] Therapy Treatment Form completed COLEMAN LAU NP [place] - [facility] 08/03/2025 14:17:35 07/30/20 25 [facility] Therapy Treatment Form completed Carolyn BERNAL - [facility] 07/30/2025 12:38:27 07/29/20 [...] [facility] - [facility] 07/23/2025 12:41:49 07/22/20 [facility] Therapy Treatment Form completed [facility] - [facility] 07/22/2025 12:53:32 07/21/20 [facility] Therapy Treatment Form completed [facility] - [facility] 07/21/2025 12:43:55 07/20/20 [facility] Therapy Treatment Form completed [facility] - [facility] 07/20/2025 12:58:21 07/17/20 [facility] Therapy Treatment Form completed Lisa Sosa [place] - [facility] 07/17/2025 12:35:46 07/16/20 [facility] Therapy Treatment Form completed Frank Gage [place] - [facility] 07/16/2025 16:54:47 07/15/20 25 Wound completed COLEMAN LAU NP [place] - [facility] 07/15/2025 14:47:28 07/15/20 25 [facility] Therapy Treatment Form completed [facility] - [facility] 07/15/2025 12:39:29 07/14/20 [facility] Therapy Treatment Form completed COLEMAN LAU NP [place] - [facility] 07/14/2025 15:14:39 07/09/20 25 [facility] Therapy Treatment Form completed [facility] - [facility] 07/09/2025 12:46:05 07/08/20 25 [facility] Therapy Treatment Form completed [facility] - [facility] 07/08/2025 12:41:28 07/07/20 25 [facility] Therapy Treatment Form completed Manfred Shelton [place] - [facility] 07/08/2025 08:10:21 07/06/20 25 [facility] Therapy Treatment Form completed [facility] - [facility] 07/06/2025 13:06:29 [...] LAU NP [place] - [facility] 06/18/2025 13:17:34 06/17/20 [...] [facility] Therapy Treatment Form completed Eveila Singh [place] - [facility] 06/05/2025 [...] Oxygen Care Therapy Treatment Form completed Carolyn [facility] [place] - [facility] 06/02/2025 13:09:37 05/29/20 25 [facility] Therapy Treatment Form completed [facility] [place] - [facility] 05/29/2025 12:25:31 05/28/20 25 [facility] Therapy Treatment Form completed [facility] [place] [facility] 05/28/2025 13:02:44 05/27/20 25 Wound completed COLEMAN LAU NP [place] - [facility] 05/27/2025 13:18:22 05/27/20 25 [facility] Therapy Treatment Form completed [facility] [place] - [facility] 05/27/2025 12:50:01 05/26/20 25 Nurse Note completed Luciana Noriega [place] [facility] 05/26/2025 16:40:42 05/26/20 25 [facility] Therapy Treatment Form completed [facility] [place] [facility] 05/26/2025 12:27:56 05/25/20 25 [facility] Therapy Treatment Form completed [facility] [place] [facility] 05/25/2025 13:12:32 05/22/20 25 [facility] Treatment Form [facility] [facility] [place] [facility] 05/22/2025 12:33:28 05/21/20 25 [facility] Therapy Treatment Form completed [facility] [place] [facility] [...] Not available Not available Not available 04/23/2025 71934 3 RxNorm [place] - [facility] 14:25:27 1104 Avelox medicatio n Not available Not available Not available 04/23/2025 81482 6 RxNorm Luciana servin, [place] - [facility] 14:25:52 1105 metformin medicatio n other Not available [facility] 04/23/20252023 6809 RxNorm GI issue s Luciana Noriega null, [place] [facility] 5 14:26:11 1253 Product containin g angiotens in-conver ting enzyme inhibitor (product) medicatio n cough moderate Not available 06/26/2025 71852 009 SNOMED Not Available taisha [employer] - prod 5 10:54:20 1254 metformin hydrochlo ride medicatio n Not available Not available Not available 06/26/2025 02136 3 RxNorm Not Available taisha - External [employer] - prod 10:54:20 1358 ceftriaxo ne medicatio n rash moderate Not available 07/15/2025 2193 RxNorm Not Available taisha [employer] - prod 10:18:57 1359 droperido l medicatio n dyspnea Not available Not available 07/15/2025 3648 RxNorm Not Available taisha [employer] 5 10:18:57 1360 moxifloxa beck medicatio n rash moderate Not available 07/15/2025 52744 2 RxNorm Not Available [employer] - prod 10:18:57 1461 moxifloxa beck hydrochlo ride medicatio n Not available Not available Not available 08/24/20252015 02165 0 RxNorm Not Available [employer] - prod 5 04:35:37 Medications [...] [degF] 92 % 176/85 mm[Hg] 169/93 mm[Hg] [place] [facility] 5 12:52:44 Date Recorded Heart rate Respiratory rate Body temperature Oxygen saturation Heart rate Respiratory rate Body temperature Oxygen saturation Systolic And Diastolic Systolic And Diastolic Provider Name and Address Organization Details Last Updated DateTime 5 77 /min 16 /min 99 [degF] 91 % 76 /min 16 /min 98.1 [degF] 89 % 158/84 mm[Hg] 144/77 mm[Hg] [place] [facility] 5 12:49:01 Date Recorded Heart rate Respiratory rate Body temperature Oxygen saturation Heart rate Respiratory rate Body temperature Oxygen saturation Systolic And Diastolic Systolic And Diastolic Provider Name and Address Organization Details Last Updated DateTime 5 86 /min 16 /min 98.1 [degF] 85 % 73 /min 16 /min 98.2 [degF] 90 % 156/74 mm[Hg] 155/85 mm[Hg] [place] [facility] 5 12:39:14 Date Recorded Heart rate Respiratory rate Body temperature Oxygen saturation Heart rate Respiratory rate Body temperature Oxygen saturation Systolic And Diastolic Systolic And Diastolic Provider Name and Address Organization Details Last Updated DateTime 5 86 /min 16 /min 98.8 [degF] 92 % 81 /min 16 /min 97.7 [degF] 93 % 167/88 mm[Hg] 157/77 mm[Hg] [place] [facility] 5 12:44:57 Date Recorded Heart rate Respiratory rate Body temperature Oxygen saturation Heart rate Respiratory rate Body temperature Oxygen saturation Systolic And Diastolic Systolic And Diastolic Provider Name and Address Organization Details Last Updated DateTime 5 91 /min 16 /min 98.8 [degF] 89 % 88 /min 16 /min 98.2 [degF] 90 % 167/77 mm[Hg] 151/75 mm[Hg] [facility] 5 12:48:54 Social History None [...] MD Main Office [address] [place] [address] 04/23/2025 14:15:51 04/24/2025 12:51:54 [id number] Manfred Shelton MD Main Office [address] [place] [address] 04/29/2025 10:50:02 04/29/2025 15:41:17 [id number] Manfred Shelton MD Main Office [address] [place] [address] 04/30/2025 11:16:06 04/30/2025 14:19:33 [id number] Manfred Shelton MD Main Office [address] [place] [address] 05/01/2025 10:18:55 05/01/2025 13:10:41 [id number] Manfred Shelton MD Main Office [address] [place] [address] 05/04/2025 10:46:48 05/04/2025 14:18:05 [id number] Manfred Shelton MD Main Office [address] [place] , [place] [address] 05/06/2025 10:55:59 05/06/2025 11:32:38 [id number] Manfred Shelton MD Main Office [address] [place] , [place] [address] 05/06/2025 13:04:28 05/07/2025 08:30:09 [id number] Manfred Shelton MD Main Office [address] [place] , [place] [address] 05/07/2025 10:45:55 05/08/2025 10:40:32 [id number] Manfred Shelton MD Main Office [address] [place] , [place] [address] 05/08/2025 10:55:11 05/08/2025 14:31:10 [id number] Manfred Shelton MD Main Office [address] [place] , [place] [address] 05/08/2025 13:08:42 05/08/2025 14:13:22 [id number] Manfred Shelton MD Main Office [address] [place] , [place] [address] 05/11/2025 10:59:55 05/11/2025 14:43:45 Type 2 diabetes mellitus 42126344 E11.69 [id number] Manfred Shelton MD Main Office [address] [place] , [place] [address] 05/12/2025 10:58:25 05/12/2025 16:06:58 [id number] Manfred Shelton MD Main Office [address] [place] , [place] [address] 05/13/2025 10:26:11 05/13/2025 14:22:52 Type 2 diabetes mellitus 25617622 E11.69 [id number] Manfred Shelton MD Main Office [address] [place] , [place] [address] 05/13/2025 13:16:44 05/13/2025 14:39:17 [id number] Manfred Shelton MD Main Office [address] [place] [address] 05/14/2025 10:20:17 05/14/2025 16:02:14 [id number] Manfred Shelton MD Main Office [address] [place] [address] 05/15/2025 10:48:13 05/18/2025 08:48:44 [id number] Manfred Shelton MD Main Office [address] [place] [address] 05/18/2025 10:59:56 05/18/2025 15:48:37 Type 2 diabetes mellitus [id number] E11.69 [id number] Manfred Shelton MD Main Office [address] [place] [address] 05/19/2025 11:07:27 05/19/2025 14:52:31 [id number] Manfred Shelton MD Main Office [address] [place] [address] 05/20/2025 11:36:16 05/20/2025 13:20:26 5003 Manfred Shelton MD Main Office [address] [place] [address] 05/20/2025 12:28:38 05/20/2025 13:24:07 [id number] Manfred Shelton MD Main Office [address] [place] [address] 05/21/2025 10:14:02 05/22/2025 08:40:53 [id number] Manfred Shelton MD Main Office [address] [place] [address] 05/22/2025 10:05:00 05/22/2025 14:31:52 5054 COLEMAN LAU NP Main Office [address] [place] , [place] [address] 05/25/2025 10:54:17 05/25/2025 14:23:41 5071 COLEMAN LAU NP Main Office [address] [place] [address] 05/26/2025 10:04:52 05/26/2025 13:22:24 5083 COLEMAN LAU, SOFTWARE TESTING SPECIALIST Main Office [address] [place] [address] 05/26/2025 16:38:48 05/26/2025 16:40:45 5087 COLEMAN LAU, SOFTWARE TESTING SPECIALIST Main Office [address] [place] [address] 05/27/2025 10:11:43 05/27/2025 13:22:20 5093 COLEMAN LAU, SOFTWARE TESTING SPECIALIST Main Office [address] [place] [address] 05/27/2025 13:11:38 05/27/2025 13:19:10 [id number] Manfred Shelton MD Main Office [address] [place] [address] 05/28/2025 10:14:13 05/29/2025 08:47:13 [id number] Manfred Shelton MD Main Office [address] [place] [address] 05/29/2025 10:04:58 05/29/2025 17:43:48 [id number] Manfred Shelton MD Main Office [address] [place] [address] 06/02/2025 10:25:50 06/02/2025 14:14:27 [id number] Manfred Shelton MD Main Office [address] [place] [address] 06/03/2025 10:16:52 06/03/2025 14:45:20 [id number] Manfred Shelton MD Main Office [address] [place] [address] 06/04/2025 10:31:23 06/04/2025 13:58:07 [id number] Manfred Shelton MD Main Office [address] [place] [address] 06/04/2025 14:13:52 06/04/2025 14:25:08 [id number] Manfred Shelton MD Main Office [address] [place] [address] 06/05/2025 10:55:07 06/05/2025 16:50:44 5202 Manfred Shelton MD Main Office [address] [place] [address] 06/08/2025 10:25:37 06/08/2025 14:39:12 [id number] Manfred Shelton MD Main Office [address] [place] [address] 06/10/2025 10:19:13 06/10/2025 13:21:20 [id number] Manfred Shelton MD Main Office [address] [place] [address] 06/11/2025 10:35:04 06/11/2025 14:11:07 [id number] Manfred Shelton MD Main Office [address] [place] [address] 06/12/2025 10:59:45 06/12/2025 14:56:49 [id number] Manfred Shelton MD Main Office [address] [place] [address] 06/15/2025 10:50:33 06/15/2025 13:14:21 [id number] Manfred Shelton MD Main Office [address] [place] [address] 06/16/2025 10:14:56 06/16/2025 13:52:36 [id number] Manfred Shelton MD Main Office [address] [place] [address] 06/17/2025 10:28:52 06/17/2025 13:18:56 [id number] Manfred Shelton MD Main Office [address] [place] [address] 06/18/2025 10:16:09 06/18/2025 13:16:04 [id number] Manfred Shelton MD Main Office [address] [place] [address] 06/19/2025 10:44:19 06/19/2025 14:15:39 5367 COLEMAN LAU NP Main Office [address] [place] [address] 06/22/2025 10:36:06 06/22/2025 14:32:28 5385 Manfred Shelton MD Main Office [address] [place] [address] 06/23/2025 10:18:15 06/23/2025 14:03:00 [id number] Manfred Shelton MD Main Office [address] [place] [address] 06/24/2025 10:23:16 06/24/2025 13:37:08 [id number] Manfred Shelton MD Main Office [address] [place] [address] 06/25/2025 10:19:36 06/25/2025 14:27:35 [id number] Manfred Shelton MD Main Office [address] [place] [address] 06/26/2025 10:52:38 06/26/2025 16:27:47 [id number] Manfred Shelton MD Main Office [address] [place] [address] 06/29/2025 10:44:14 06/29/2025 13:39:12 [id number] Manfred Shelton MD Main Office [address] [place] [address] 06/30/2025 10:42:21 06/30/2025 13:46:39 [id number] Manfred Shelton MD Main Office [address] [place] [address] 07/01/2025 10:49:18 07/01/2025 13:25:24 [id number] Manfred Shelton MD Main Office [address] [place] [address] 07/02/2025 10:15:06 07/03/2025 07:21:23 [id number] Manfred Shelton MD Main Office [address] [place] [address] 07/03/2025 10:50:33 07/03/2025 17:53:35 [id number] Manfred Shelton MD Main Office [address] [place] [address] 07/06/2025 10:54:52 07/06/2025 14:37:01 5575 Manfred Shelton MD Main Office [address] [place] [address] 07/07/2025 10:14:11 07/08/2025 08:12:24 [id number] Manfred Shelton MD Main Office [address] [place] [address] 07/08/2025 10:22:23 07/08/2025 19:57:51 [id number] Manfred Shelton MD Main Office [address] [place] [address] 07/09/2025 10:23:51 07/09/2025 16:04:46 [id number] Manfred Shelton MD Main Office [address] [place] [address] 07/14/2025 10:06:05 07/14/2025 15:15:47 [id number] Manfred Shelton MD Main Office [address] [place] [address] 07/15/2025 10:17:40 07/15/2025 13:26:46 [id number] Manfred Shelton MD Main Office [address] [place] [address] 07/15/2025 14:45:53 07/15/2025 14:48:12 [id number] Manfred Shelton MD Main Office [address] [place] [address] 07/16/2025 10:18:19 07/16/2025 14:20:47 5719 Manfred Shelton MD Main Office [address] [place] [address] 07/17/2025 10:06:47 07/17/2025 14:10:36 Refractory migraine with aura [id number] G43.655 [id number] Manfred Shelton MD Main Office [address] [place] [address] 07/20/2025 11:09:11 07/20/2025 14:45:37 [id number] Manfred Shelton MD Main Office [address] [place] [address] 07/21/2025 10:11:12 07/21/2025 12:49:36 [id number] Manfred Shelton MD Main Office [address] [place] [address] 07/22/2025 10:10:07 07/22/2025 13:11:46 5811 Manfred Shelton MD Main Office [address] [place] [address] 07/23/2025 10:48:45 07/23/2025 15:03:21 [id number] Manfred Shelton MD Main Office [address] [place] [address] 07/24/2025 10:18:12 07/24/2025 17:58:24 [id number] Manfred Shelton MD Main Office [address] [place] [address] 07/27/2025 10:15:44 07/27/2025 14:05:56 5877 Manfred Shelton MD Main Office [address] [place] [address] 07/28/2025 10:36:12 07/28/2025 13:58:27 5899 Manfred Shelton MD Main Office [address] [place] [address] 07/29/2025 10:14:56 07/29/2025 13:38:02 [id number] Manfred Shelton MD Main Office [address] [place] [address] 07/30/2025 10:32:11 07/31/2025 08:45:48 [id number] Manfred Shelton MD Main Office [address] [place] [address] 08/01/2025 08:56:19 08/01/2025 09:05:22 [id number] Manfred Shelton MD Main Office [address] [place] [address] 08/03/2025 10:12:43 08/03/2025 14:18:16 [id number] Manfred Shelton MD Main Office [address] [place] [address] 08/04/2025 10:18:33 08/04/2025 13:52:38 [id number] Manfred Shelton MD Main Office [address] [place] [address] 08/10/2025 10:19:50 08/10/2025 13:54:24 [id number] Manfred Shelton MD Main Office [address] [place] [address] 08/11/2025 10:13:33 08/11/2025 14:13:40 [id number] Manfred Shelton MD Main Office [address] [place] [address] 08/12/2025 10:17:32 08/12/2025 14:16:09 [id number] Manfred Shelton MD Main Office [address] [place] [address] 08/13/2025 09:43:21 08/13/2025 15:50:31 [id number] Manfred Shelton MD Main Office [address] [place] [address] 08/14/2025 10:42:31 08/14/2025 19:25:25 [id number] Manfred Shelton MD Main Office [address] [place] [address] 08/17/2025 10:11:40 08/17/2025 13:45:10 [id number] Manfred Shelton MD Main Office [address] [place] [address] 08/24/2025 10:23:30 08/24/2025 13:10:50 [id number] Manfred Shelton MD Main Office [address] [place] [address] 08/25/2025 10:36:28 08/25/2025 13:49:08 [id number] Manfred Shelton MD Main Office [address] [place] [address] 08/31/2025 10:01:37 08/31/2025 13:53:53 [id number] Manfred Shelton MD Main Office [address] [place] [address] 09/07/2025 10:18:13 09/07/2025 14:13:47 [id number] Manfred Shelton MD Main Office [address] [place] [address] 09/14/2025 10:07:01 09/14/2025 14:56:01 [id number] Manfred Shelton MD Main Office [address] [address] [place] [address] 09/15/2025 10:26:49 09/15/2025 12:55:24 Health Concerns Section Related Observation LastModified by Organization Detai ls LastModified Time None Recorded Concern Status LastModified by Organization Details LastModified Time None Recorded Advance Directives Directive None Recorded Payers Insurance Date Sequence Insurance Name Policy Number Policy Gonzales Covered Member ID Gonzales Member ID Guarantor Name 04/23/2025 2 [employer] [facility] Seema Delacruz [id number] Seema Delacruz 04/23/2025 1 [employer] Seema Delacruz [id number] Seema Delacruz OBGyn Episode No OBEpisode recorded.
--- OUTSIDE RECORDS SUMMARY | 2025-09-16 16:40 | XMS_ITS | Continuity of Care Document ---
Author Organization [place] [facility], Main Office Address [address] [place] [address] Care Team Providers Care Rail Crew Member Name Role Phone STEPHY YUSUF Primary Care Provider [phone] Assessment No assessment recorded. Plan of Treatment [...] Modified By Organization Details Last Modified Time 07/24/2025 [id number] BACKGROUND: Seema Delacruz is a 55 y.o. [...] Diagnosis: L97.512, E11.621 Session Notes: Today's Date 24Jul2025 HBOT session 57 of 60 Next HBOT [id number] 30Jul - Patient cleared for 1st HBOT [...] antibiotics for an upper respiratory infection. Nicolasa LEARNING TECHNOLOGIES SPECIALIST 07Aug- Patient cleared for HBOT today. VS stable. PAtient had little trouble reaching pressure today, but had to come out of chamber early due to needing to use restroom. She managed to do 4 segs-118 minutes. [place].Tanner LEARNING TECHNOLOGIES SPECIALIST 08Aug - Patient cleared for HBOT today. VS stable. Patient completed full session with no problem. Antoinette Lau LEARNING TECHNOLOGIES SPECIALIST 11Aug - Patient cleared for HBOT [...] full session with no problem. Antoinette Lau LEARNING TECHNOLOGIES SPECIALIST 13Aug - Patient cleared for HBOT today. VS stable. Patient completed full session with no problem. Wound care to follow treatment today. Antoinette Lau APRN 14Aug - Patient cleared for HBOT today. VS stable. Patient completed full session with no problem. Antoinette Lau LEARNING TECHNOLOGIES SPECIALIST 15Aug - Patient cleared for HBOT [...] attempt to try again on Sunday. Nicolasa LEARNING TECHNOLOGIES SPECIALIST 18Aug - Patient cleared for HBOT today. VS stable. Patient completed full session with no problem. Antoinette Lau LEARNING TECHNOLOGIES SPECIALIST 19Aug - Patient deemed safe for [...] significant anxiety. Dressing change today per nursing. [facility] 25Aug - Patient deemed safe for HBOT [...] date andcompleted full session free of problem. [facility] 29Aug - Cleared for HBOT his date and completed full session free of problem. Of note, this patient continues to smoke tobacco cigarettes. [facility] 02Sep - Patient deemed safe for HBOT [...] above 80 and was discharged with 92. [facility] 08Sep - Patient deemed safe for HBOT today. VS stable. Patient completed full session with no problem. [place].Jessica Lau APRN 10Sep - Patient deemed safe for HBOT today. VS stable. Patient completed full session with no problem. Antoinette Lau APRN 11Sep - Patient cleared for HBOT today. VS stable. Patient completed full session with no problem. [place].Jessica Lau LEARNING TECHNOLOGIES SPECIALIST 12Sep - Found safe for HBOT this date. Completed curtailed session free of problem. Session shortened to satisfy demand of ride provider. [facility] 15Sep - Patient cleared for HBOT today. [...] full session with no problem. IsraelIlsa Lau LEARNING TECHNOLOGIES SPECIALIST 26Sep - Deemed safe for HBOT on this date and completed the full session uneventfully. [facility] 29Sep - Patient cleared for HBOT today. VS stable. Patient completed 3 Seg session with no problem. M.ADeepali Lau LEARNING TECHNOLOGIES SPECIALIST 30Sep - Patient cleared for HBOT today. VS stable. Patient completed full session with no problem. M.Jessica Lau LEARNING TECHNOLOGIES SPECIALIST 01Oct - Patient cleared for HBOT today. VS stable. Patient completed full session with no problem. M.Jessica Lau LEARNING TECHNOLOGIES SPECIALIST 02Oct - Cleared for HBOT this date and completed full session free of problem. [facility] 03Oct - Deemed safe for HBOT today and completed her full session without problem. [facility] 06Oct - Found safe for HBOT this date and tolerated her session free of problem. [facility] 07Oct- Cleared for HBOT this date and completed the full session without problem. [facility] 08Oct - Glu on arrival marginal so given caloric intake first and then cleared for HBOT this day. Had no problem completing full session emerging at Glu 139. [facility] 09Oct - Deemed safe for HBOT today and completed full session without problem. [facility] 14Oct - Patient returns after being out ill. Cleared for HBOT today. VS stable. Patient completed full session with no problem. [place].Jessica Lau LEARNING TECHNOLOGIES SPECIALIST 15Oct - Patient cleared for HBOT today. VS stable. Patient completed full session with no problem. M.Jessica Lau LEARNING TECHNOLOGIES SPECIALIST 16Oct - Patient cleared for HBOT today. VS stable. Patient completed full session with no problem. M.Jessica Lau LEARNING TECHNOLOGIES SPECIALIST 17Oct - Patient cleared for HBOT today. VS stable. Patient completed full session with no problem. [place].Jessica Lau LEARNING TECHNOLOGIES SPECIALIST 20Oct - Patient an hour late today due to transportation company. She can only do an hour, or she will not have a ride back home. Cleared for HBOT, VS stable. Finished 1 hour session with no issues or complaints. M.Tanner LEARNING TECHNOLOGIES SPECIALIST 21Oct - Patient cleared for HBOT today. VS stable. Patient completed full session with no problem. M.ADeepali Lau LEARNING TECHNOLOGIES SPECIALIST 22Oct - Patient cleared for HBOT today. VS stable. Patient completed full session with no problem. M.Jessica Lau LEARNING TECHNOLOGIES SPECIALIST 23Oct - Patient cleared for HBOT today. VS stable. Patient completed full session with no problem. Antoinette Lau LEARNING TECHNOLOGIES SPECIALIST 24Oct - Deemed safe for HBOT this date and did complete full session without problem. [facility] MD suareziii Not available 07/24/2025 17:58:20 Reason for Referral None Reported. Results Created [...] Organization Details Recorded Time Upper respiratory infection [id number] Active 2024 COLEMAN LAU NP null, [place] - [facility] 12:18:40 Episodic migraine [id number] Active 2024 COLEMAN LAU NP null, [place] [facility] 12:34:01 Type 2 diabetes mellitus 00937012 Active 2024 COLEMAN LAU NP null, [place] [facility] 15:27:12 Refractory migraine with aura 646270863 Active 2024 COLEMAN LAU NP null, [place] [facility] 10:56:52 Recurrent acute frontal sinusitis Active 2024 COLEMAN LAU NP null, [place] [facility] 12:47:05 Candidiasis of vagina 95346495 Active 2024 COLEMAN LAU NP null, [place] [facility] 12:47:26 Acute upper respiratory infection 22617477 Active 2024 COLEMAN LAU NP null, [place] [...] Care Therapy Treatment Form completed Carolyn roland [place] - [facility] 09/07/2025 12:38:58 08/31/20 25 [facility] Therapy Treatment Form completed [facility] - [facility] 08/31/2025 12:48:46 08/25/20 25 [facility] Therapy Treatment Form completed [facility] - [facility] 08/25/2025 12:52:26 08/24/20 25 [facility] Therapy Treatment Form completed [facility] - [facility] 08/24/2025 12:53:43 08/17/20 25 [facility] Therapy Treatment Form completed [facility] - [facility] 08/17/2025 13:02:48 08/14/20 25 [facility] Therapy Treatment Form completed Lisa Sosa [place] - [facility] 08/14/2025 12:43:08 08/13/20 25 [facility] Therapy Treatment Form completed Carolyn luan [place] - [facility] 08/13/2025 12:27:58 08/12/20 25 [facility] Therapy Treatment Form completed [facility] - [facility] 08/12/2025 12:36:02 08/12/20 25 Wound completed COLEMAN LAU NP [place] - [facility] 08/12/2025 14:15:15 08/11/20 25 [facility] Therapy Treatment Form completed Carolyn luan [place] - [facility] 08/11/2025 12:58:18 08/10/20 25 [facility] Therapy Treatment Form completed Carolyn roland [place] - [facility] 08/10/2025 12:57:23 08/04/20 25 [facility] Therapy Treatment Form completed ABDOULAYE [facility] - [facility] 08/04/2025 13:51:50 08/03/20 25 [facility] Therapy Treatment Form completed ABDOULAYE [facility] - [facility] 08/03/2025 14:17:35 07/30/20 25 [facility] Therapy Treatment Form completed Carolyn roland [place] - [facility] 07/30/2025 12:38:27 07/29/20 25 [facility] Therapy Treatment Form completed Carolyn roland [place] - [facility] 07/29/2025 12:40:06 07/28/20 [...] Care Therapy Treatment Form completed [facility] - [facility] 07/23/2025 12:41:49 07/22/20 [facility] Therapy Treatment Form completed [facility] - [facility] 07/22/2025 12:53:32 07/21/20 [facility] Therapy Treatment Form completed [facility] - [facility] 07/21/2025 12:43:55 07/20/20 [facility] Therapy Treatment Form completed [facility] - [facility] 07/20/2025 12:58:21 07/17/20 [...] Care Therapy Treatment Form completed [facility] - [facility] 07/15/2025 12:39:29 07/14/20 25 [facility] Therapy Treatment Form completed COLEMAN LAU NP [place] - [facility] 07/14/2025 15:14:39 07/09/20 25 [facility] Therapy Treatment Form completed [facility] - [facility] 07/09/2025 12:46:05 07/08/20 25 [facility] Therapy Treatment Form completed [facility] - [facility] 07/08/2025 12:41:28 07/07/20 25 [facility] Therapy Treatment Form completed Manfred Shelton MD [place] - [facility] 07/08/2025 08:10:21 07/06/20 25 [facility] Therapy Treatment Form completed Carolyn sharp [place] - [facility] 07/06/2025 13:06:29 07/03/20 25 [facility] Therapy Treatment Form completed Paula Licea [place] - [facility] 07/03/2025 12:47:29 07/02/20 25 [facility] Therapy Treatment Form completed Paula Licea [place] - [facility] 07/02/2025 13:06:39 07/01/20 25 [facility] Therapy Treatment Form completed Paula BERNAL - [facility] 07/01/2025 13:05:37 06/30/20 25 [facility] Therapy Treatment Form completed COLEMAN LAU NP [place] - [facility] 06/30/2025 13:46:12 06/29/20 25 [facility] Therapy Treatment Form completed Carolyn [facility] - [facility] 06/29/2025 13:24:58 06/26/20 25 [facility] Therapy Treatment Form completed Manfred Shelton MD [place] - [facility] 06/26/2025 16:57:55 06/25/20 25 [facility] Therapy Treatment Form completed [facility] - [facility] 06/25/2025 12:47:07 06/24/20 25 [facility] Therapy Treatment Form completed [facility] - [facility] 06/24/2025 12:40:20 06/23/20 25 [facility] Therapy Treatment Form completed [facility] - [facility] 06/23/2025 12:39:50 06/22/20 25 [facility] Therapy Treatment Form completed [facility] - [facility] 06/22/2025 12:49:55 06/19/20 25 [facility] Therapy Treatment Form completed Manfred Shelton MD [place] - [facility] 06/19/2025 14:13:24 06/18/20 25 [facility] Therapy Treatment Form completed COLEMAN LAU NP [place] - [facility] 06/18/2025 13:17:34 06/17/20 25 [facility] Therapy Treatment Form completed [facility] - [facility] 06/17/2025 12:29:15 06/16/20 25 [facility] Therapy Treatment Form completed [facility] - [facility] 06/16/2025 12:45:53 06/15/20 25 [facility] Therapy Treatment Form completed [facility] - [facility] 06/15/2025 12:47:07 06/12/20 25 [facility] Therapy Treatment Form completed Manfred Shelton MD [place] - [facility] 06/12/2025 14:54:52 06/11/20 25 [facility] Therapy Treatment Form completed [facility] - [facility] 06/11/2025 13:02:39 06/10/20 25 [facility] Therapy Treatment Form completed [facility] - [facility] 06/10/2025 12:50:18 06/08/20 25 [facility] Therapy Treatment Form completed [facility] 06/08/2025 12:56:07 06/05/20 [...] Eveliapatricia Winters [place] - [facility] 06/03/2025 14:11:11 06/02/20 25 [facility] Therapy Treatment Form completed [facility] - [facility] 06/02/2025 13:09:37 05/29/20 25 [facility] Therapy Treatment Form completed [facility] - [facility] 05/29/2025 12:25:31 05/28/20 25 [facility] Therapy Treatment Form completed [facility] 05/28/2025 13:02:44 05/27/20 25 Wound completed COLEMAN LAU NP [place] - [facility] 05/27/2025 13:18:22 05/27/20 25 [facility] Therapy Treatment Form completed [facility] - [facility] 05/27/2025 12:50:01 05/26/20 25 Nurse Note completed Luciana Noriega [place] [facility] 05/26/2025 16:40:42 05/26/20 25 [facility] Therapy Treatment Form completed [facility] - [facility] 05/26/2025 12:27:56 05/25/20 25 [facility] Therapy Treatment Form completed [facility] - [facility] 05/25/2025 13:12:32 05/22/20 [...] Not available Not available Not available 04/23/2025 28889 3 RxNorm Luciana servin, [place] - [facility] 14:25:27 1104 Avelox medicatio n Not available Not available Not available 04/23/2025 22327 6 RxNorm Luciana servin, [place] - [facility] 5 14:25:52 1105 metformin medicatio n other Not available low 04/23/20252023 6809 RxNorm GI issue s Luciana servin, [place] - [facility] 5 14:26:11 1253 Product containin g angiotens in-conver ting enzyme inhibitor (product) medicatio n cough moderate Not available 06/26/2025 90754 009 SNOMED Not Available taisha - [employer] - prod 5 10:54:20 1254 metformin hydrochlo ride medicatio n Not available Not available Not available 06/26/2025 02804 3 RxNorm Not Available [employer] Data [employer] - prod 5 10:54:20 1358 ceftriaxo ne medicatio n rash moderate Not available 07/15/2025 2193 RxNorm Not Available taisha - [employer] - prod 5 10:18:57 1359 droperido l medicatio n dyspnea Not available Not available 07/15/2025 3648 RxNorm Not Available [employer] - prod 5 10:18:57 1360 moxifloxa beck medicatio n rash moderate Not available 07/15/2025 08572 2 RxNorm Not Available [employer] - prod 5 10:18:57 1461 moxifloxa beck hydrochlo ride medicatio n Not available Not available Not available 08/24/20252015 12848 0 RxNorm Not Available [employer] Data [employer] - prod 5 04:35:37 Medications [...] Available Not A vailable Not Available [employer] Joelel 14 Day Sensor kit change every 14 [...] Address Organization Details Last Updated DateTime 5 67 /min 16 /min 97.9 [degF] 99 % 148/82 mm[Hg] Paula Vinayak [place] [facility] 10:47:51 Date Recorded Heart rate Respiratory rate Body temperature Oxygen saturation Systolic And Diastolic Provider Name and Address Organization Details Last Updated DateTime 5 77 /min 16 /min 98.4 [degF] 99 % 144/86 mm[Hg] Lisa Sosa [place] [facility] 5 13:05:30 Social History None recorded. Functional Status None [...] ICD10 Code Diagnosis IMO Codes Diagnosis Note [id number] Manfred Shelton MD Main Office [address] [place] [address] 06/24/2025 10:23:16 06/24/2025 13:37:08 [id number] Manfred Shelton MD Main Office [address] [place] [address] 06/25/2025 10:19:36 06/25/2025 14:27:35 [id number] Manfred Shelton MD Main Office [address] [place] [address] 06/26/2025 10:52:38 06/26/2025 16:27:47 [id number] Manfred Shelton MD Main Office [address] [place] [address] 06/29/2025 10:44:14 06/29/2025 13:39:12 [id number] Manfred Shelton MD Main Office [address] [place] [address] 06/30/2025 10:42:21 06/30/2025 13:46:39 [id number] Manfred Shelton MD Main Office [address] [place] [address] 07/01/2025 10:49:18 07/01/2025 13:25:24 [id number] Manfred Shelton MD Main Office [address] [place] [address] 07/02/2025 10:15:06 07/03/2025 07:21:23 [id number] Manfred Shelton MD Main Office [address] [place] [address] 07/03/2025 10:50:33 07/03/2025 17:53:35 [id number] Manfred Shelton MD Main Office [address] [place] [address] 07/06/2025 10:54:52 07/06/2025 14:37:01 [id number] Manfred Shelton MD Main Office [address] [place] [address] 07/07/2025 10:14:11 07/08/2025 08:12:24 [id number] Manfred Shelton MD Main Office [address] [place] [address] 07/08/2025 10:22:23 07/08/2025 19:57:51 [id number] Manfred Shelton MD Main Office [address] [place] [address] 07/09/2025 10:23:51 07/09/2025 16:04:46 [id number] Manfred Shelton MD Main Office [address] [place] [address] 07/14/2025 10:06:05 07/14/2025 15:15:47 [id number] Manfred Shelton MD Main Office [address] [place] [address] 07/15/2025 10:17:40 07/15/2025 13:26:46 [id number] Manfred Shelton MD Main Office [address] [place] [address] 07/15/2025 14:45:53 07/15/2025 14:48:12 [id number] Manfred Shelton MD Main Office [address] [place] [address] 07/16/2025 10:18:19 07/16/2025 14:20:47 [id number] Manfred Shelton MD Main Office [address] [place] [address] 07/17/2025 10:06:47 07/17/2025 14:10:36 Refractory migraine with aura [id number] G43.793 [id number] Manfred Shelton MD Main Office [address] [place] [address] 07/20/2025 11:09:11 07/20/2025 14:45:37 [id number] Manfred Shelton MD Main Office [address] [place] [address] 07/21/2025 10:11:12 07/21/2025 12:49:36 [id number] Manfred Shelton MD Main Office [address] [place] [address] 07/22/2025 10:10:07 07/22/2025 13:11:46 [id number] Manfred Shelton MD Main Office [address] [place] [address] 07/23/2025 10:48:45 07/23/2025 15:03:21 [id number] Manfred Shelton MD Main Office [address] [place] [address] 07/24/2025 10:18:12 07/24/2025 17:58:24 Health Concerns Section Related Observation LastModified by Organization Detai ls LastModified Time None Recorded Concern Status LastModified by Organization Details LastModified Time None Recorded Payers Encounter Date Sequence Insurance Name Policy Number Policy Gonzales Covered Member ID Gonzales Member ID Guarantor Name 07/24/2025 2 [employer] [facility] Seema Delacruz [id number] Seema Delacruz 07/24/2025 1 [employer] Seema Delacruz [id number] Seema Delacruz OBGyn Episode No OBEpisode recorded.
--- OUTSIDE RECORDS SUMMARY | 2025-09-16 16:40 | XMS_ITS | Continuity of Care Document ---
Author Organization [place] [facility], Main Office Address [address] [place] [address] Care Team Providers Care Liquor Rectifier Name Role Phone STEPHY YUSUF Primary Care Provider [phone] Assessment No assessment recorded. Plan of Treatment [...] Modified By Organization Details Last Modified Time 07/07/2025 4172 BACKGROUND: Seema Delacruz is a 55 y.o. [...] Diagnosis: L97.512, E11.621 Session Notes: Today's Date 07Jul2025 HBOT session 46 of 60 Next HBOT 08Jul2025 30Jul - Patient cleared for 1st HBOT [...] antibiotics for an upper respiratory infection. Nicolasa AGRI BUSINESS AGENT 07Aug- Patient cleared for HBOT today. VS stable. PAtient had little trouble reaching pressure today, but had to come out of chamber early due to needing to use restroom. She managed to do 4 segs-118 minutes. [place].Tanner AGRI BUSINESS AGENT 08Aug - Patient cleared for HBOT today. VS stable. Patient completed full session with no problem. Antoinette Lau AGRI BUSINESS AGENT 11Aug - Patient cleared for HBOT today. [...] full session with no problem. Antoinette Lau AGRI BUSINESS AGENT 13Aug - Patient cleared for HBOT today. VS stable. Patient completed full session with no problem. Wound care to follow treatment today. Antoinette Lau APRN 14Aug - Patient cleared for HBOT today. VS stable. Patient completed full session with no problem. Antoinette Lau AGRI BUSINESS AGENT 15Aug - Patient cleared for HBOT today. [...] attempt to try again on Sunday. Nicolasa AGRI BUSINESS AGENT 18Aug - Patient cleared for HBOT today. VS stable. Patient completed full session with no problem. Antoinette Lau AGRI BUSINESS AGENT 19Aug - Patient deemed safe for HBOT [...] anxiety. Dressing change today per nursing. [facility] 25Aug - Patient deemed safe for HBOT [...] andcompleted full session free of problem. [facility] 29Aug - Cleared for HBOT his date and completed full session free of problem. Of note, this patient continues to smoke tobacco cigarettes. [facility] 02Sep - Patient deemed safe for HBOT [...] above 80 and was discharged with 92. [facility] 08Sep - Patient deemed safe for HBOT today. VS stable. Patient completed full session with no problem. [place].Jessica Lau APRN 10Sep - Patient deemed safe for HBOT today. VS stable. Patient completed full session with no problem. Antoinette Lau APRN 11Sep - Patient cleared for HBOT today. VS stable. Patient completed full session with no problem. [place].Jessica Lau AGRI BUSINESS AGENT 12Sep - Found safe for HBOT this date. Completed curtailed session free of problem. Session shortened to satisfy demand of ride provider. [facility] 15Sep - Patient cleared for HBOT today. [...] completed full session with no problem. [place] BUSINESS AGENT 26Sep - Deemed safe for HBOT on this date and completed the full session uneventfully. [facility] 29Sep - Patient cleared for HBOT today. VS stable. Patient completed 3 Seg session with no problem. [place].Jessica SotoJudi AGRI BUSINESS AGENT 30Sep - Patient cleared for HBOT today. VS stable. Patient completed full session with no problem. [place].Jessica Lau AGRI BUSINESS AGENT 01Oct - Patient cleared for HBOT today. VS stable. Patient completed full session with no problem. [place].Jessica Lau AGRI BUSINESS AGENT 02Oct - Cleared for HBOT this date and completed full session free of problem. [facility] 03Oct - Deemed safe for HBOT today and completed her full session without problem. [facility] 06Oct - Found safe for HBOT this date and tolerated her session free of problem. [facility] 07Oct- Cleared for HBOT this date and completed the full session without problem. [facility] [email or web address] Not available 07/08/2025 08:12:18 Reason for Referral None Reported. Problems Name Problem SNOMED Code Status Onset Date Resolution Date Notes Provider Name and Address Organization Details Recorded Time Upper respiratory infection 94782872 Active 2024 COLEMAN LAU NP null, [place] - [facility] 12:18:40 Episodic migraine 2681018486335 Active 2024 COLEMAN LAU NP null, [place] [facility] 12:34:01 Type 2 diabetes mellitus 70731840 Active 2024 COLEMAN LAU NP null, [place] [facility] 15:27:12 Refractory migraine with aura 421431129 Active 2024 COLEMAN LAU NP null, [place] [facility] 10:56:52 Recurrent acute frontal sinusitis Active 2024 COLEMAN LAU NP null, [place] [facility] 12:47:05 Candidiasis of vagina 73150367 Active 2024 COLEMAN LAU NP null, [place] - [facility] 12:47:26 Acute upper respiratory infection 64073502 Active 2024 ABDOULAYE HAQ [place] - [facility] 12:32:57 Problem Notes None recorded. Procedures Surgical History Date Name Laterality Status Provider Name and Address Organization Details Recorded Time 09/15/20 25 [facility] Therapy Treatment Form completed Carolyn roland [place] - [facility] 09/15/2025 12:48:40 09/14/20 25 [facility] Therapy Treatment Form completed ABDOULAYE HAQ - [facility] 09/14/2025 14:54:43 09/07/20 25 [facility] Therapy Treatment Form completed Carolyn luan [place] - [facility] 09/07/2025 12:38:58 08/31/20 25 [facility] Therapy Treatment Form completed Carolyn roland [place] [facility] 08/31/2025 12:48:46 08/25/20 25 [facility] Therapy Treatment Form completed Carolyn roland [place] [facility] 08/25/2025 12:52:26 08/24/20 25 [facility] Therapy Treatment Form completed Carolyn luan [place] [facility] 08/24/2025 12:53:43 08/17/20 25 [facility] Therapy Treatment Form completed Carolyn luan [place] [facility] 08/17/2025 13:02:48 08/14/20 25 [facility] Therapy Treatment Form completed Lisadipesh Sosa [place] [facility] 08/14/2025 12:43:08 08/13/20 25 [facility] Therapy Treatment Form completed Carolyn luan [place] [facility] 08/13/2025 12:27:58 08/12/20 25 [facility] Therapy Treatment Form completed Carolyn luan [place] [facility] 08/12/2025 12:36:02 08/12/20 25 Wound completed COLEMAN LAU NP [place] - [facility] 08/12/2025 14:15:15 08/11/20 25 [facility] Therapy Treatment Form completed Carolyn luan [place] - [facility] 08/11/2025 12:58:18 08/10/20 25 [facility] Therapy Treatment Form completed Carolyn luan [place] [facility] 08/10/2025 12:57:23 08/04/20 25 [facility] Therapy Treatment Form completed ABDOULAYE HAQ - [facility] 08/04/2025 13:51:50 08/03/20 25 [facility] Therapy Treatment Form completed COLEMAN LAU NP [place] - [facility] 08/03/2025 14:17:35 07/30/20 [facility] Therapy Treatment Form completed [facility] - [facility] 07/30/2025 12:38:27 07/29/20 [facility] Therapy Treatment Form completed [facility] - [facility] 07/29/2025 12:40:06 07/28/20 [...] Care Therapy Treatment Form completed [facility] - [facility] 07/23/2025 12:41:49 07/22/20 [facility] Therapy Treatment Form completed [facility] - [facility] 07/22/2025 12:53:32 07/21/20 [facility] Therapy Treatment Form completed [facility] - [facility] 07/21/2025 12:43:55 07/20/20 [facility] Therapy Treatment Form completed [facility] - [facility] 07/20/2025 12:58:21 07/17/20 [facility] Therapy Treatment Form completed Lisa Sosa [place] - [facility] 07/17/2025 12:35:46 07/16/20 [facility] Therapy Treatment Form completed Frank Gage [place] - [facility] 07/16/2025 16:54:47 07/15/20 Wound completed COLEMAN LAU NP [place] - [facility] 07/15/2025 14:47:28 07/15/20 [facility] Therapy Treatment Form completed [facility] - [facility] 07/15/2025 12:39:29 07/14/20 [facility] Therapy Treatment Form completed COLEMAN LAU NP [place] - [facility] 07/14/2025 15:14:39 07/09/20 [facility] Therapy Treatment Form completed [facility] - [facility] 07/09/2025 12:46:05 07/08/20 25 [facility] Therapy Treatment Form completed [facility] - [facility] 07/08/2025 12:41:28 07/07/20 25 [facility] Therapy Treatment Form completed Manfred Shelton MD [place] - [facility] 07/08/2025 08:10:21 07/06/20 25 [facility] Therapy Treatment Form completed [facility] - [facility] 07/06/2025 13:06:29 07/03/20 25 [facility] Therapy Treatment Form completed Paula Licea [place] [facility] 07/03/2025 12:47:29 07/02/20 25 [facility] Therapy Treatment Form completed Paula Licea [place] [facility] 07/02/2025 13:06:39 07/01/20 25 [facility] Therapy Treatment Form completed Paula Licea [place] [facility] 07/01/2025 13:05:37 06/30/20 25 [facility] Therapy Treatment Form completed COLEMAN LAU NP [place] [facility] 06/30/2025 13:46:12 06/29/20 25 [facility] Therapy Treatment Form completed [facility] - [facility] 06/29/2025 13:24:58 06/26/20 25 [facility] Therapy Treatment Form completed Manfred Shelton MD [place] - [facility] 06/26/2025 16:57:55 06/25/20 25 [facility] Therapy Treatment Form completed [facility] - [facility] 06/25/2025 12:47:07 06/24/20 25 [facility] Therapy Treatment Form completed [facility] - [facility] 06/24/2025 12:40:20 06/23/20 25 [facility] Therapy Treatment Form completed [facility] - [facility] 06/23/2025 12:39:50 06/22/20 25 [facility] Therapy Treatment Form completed [facility] - [facility] 06/22/2025 12:49:55 06/19/20 25 [facility] Therapy Treatment Form completed Manfred Shelton MD [place] [facility] 06/19/2025 14:13:24 06/18/20 25 [facility] Therapy Treatment Form completed COLEMAN LAU NP [place] - [facility] 06/18/2025 13:17:34 06/17/20 25 [facility] Therapy Treatment Form completed [facility] [place] - [facility] 06/17/2025 12:29:15 06/16/20 25 [facility] Therapy Treatment Form completed [facility] - [facility] 06/16/2025 12:45:53 06/15/20 25 [facility] Therapy Treatment Form completed [facility] - [facility] 06/15/2025 12:47:07 06/12/20 25 [facility] Therapy Treatment Form completed Manfred Shelton MD [place] [facility] 06/12/2025 14:54:52 06/11/20 25 [facility] Therapy Treatment Form completed [facility] - [facility] 06/11/2025 13:02:39 06/10/20 25 [facility] Therapy Treatment Form completed [facility] - [facility] 06/10/2025 12:50:18 06/08/20 25 [facility] Therapy Treatment Form completed [facility] - [facility] 06/08/2025 12:56:07 06/05/20 [...] Care Therapy Treatment Form completed [facility] - [facility] 06/02/2025 13:09:37 05/29/20 25 [facility] Therapy Treatment Form completed [facility] - [facility] 05/29/2025 12:25:31 05/28/20 25 [facility] Therapy Treatment Form completed [facility] - [facility] 05/28/2025 13:02:44 05/27/20 25 Wound completed COLEMAN LAU NP [place] - [facility] 05/27/2025 13:18:22 05/27/20 25 [facility] Therapy Treatment Form completed [facility] - [facility] 05/27/2025 12:50:01 05/26/20 [...] Not available Not available Not available 04/23/2025 94783 3 RxNorm Luciana servin, [place] - [facility] 5 14:25:27 1104 Avelox medicatio n Not available Not available Not available 04/23/2025 17273 6 RxNorm Luciana Noriega null, [place] - [facility] 5 14:25:52 1105 metformin medicatio n other Not available low 04/23/20252023 6809 RxNorm GI issue s Luciana Noriega null, [place] - [facility] 14:26:11 1253 Product containin g angiotens in-conver ting enzyme inhibitor (product) medicatio n cough moderate Not available 06/26/2025 77929 009 SNOMED Not Available taisha - External Data Service - prod 5 10:54:20 1254 metformin hydrochlo ride medicatio n Not available Not available Not available 06/26/2025 32420 3 RxNorm Not Available taisha - External [...] medicatio n rash moderate Not available 07/15/2025 52930 2 RxNorm Not Available taisha - External Data Service - prod 5 10:18:57 1461 moxifloxa beck hydrochlo ride medicatio n Not available Not available Not available 08/24/20252015 70874 0 RxNorm Not Available taishaTELOS Data Service - prod 5 04:35:37 Medications [...] Address Organization Details Last Updated DateTime 5 96 /min 16 /min 98.6 [degF] 95 % 75 /min 16 /min 98.2 [degF] 93 % 173/91 mm[Hg] 167/93 mm[Hg] [facility] - [facility] 5 13:00:49 Date Recorded Heart rate Respiratory rate Body temperature Oxygen saturation Heart rate Respiratory rate Body temperature Oxygen saturation Systolic And Diastolic Systolic And Diastolic Provider Name and Address Organization Details Last Updated DateTime 5 91 /min 16 /min 98.2 [degF] 92 % 79 /min 16 /min 97.9 [degF] 96 % 141/70 mm[Hg] 112/72 mm[Hg] [facility] - [facility] 5 12:41:47 Social [...] MD Main Office [address] [place] [address] 06/08/2025 10:25:37 06/08/2025 14:39:12 [id number] Manfred Shelton MD Main Office [address] [facility] [place] [address] 06/10/2025 10:19:13 06/10/2025 13:21:20 [id number] Manfred Shelton MD Main Office [address] [place] [address] 06/11/2025 10:35:04 06/11/2025 14:11:07 [id number] Manfred Shelton MD Main Office [address] [place] [address] 06/12/2025 10:59:45 06/12/2025 14:56:49 [id number] Manfred Shelton MD Main Office [address] [place] [address] 06/15/2025 10:50:33 06/15/2025 13:14:21 [id number] Manfred Shelton MD Main Office [address] [place] [address] 06/16/2025 10:14:56 06/16/2025 13:52:36 [id number] Manfred Shelton MD Main Office [address] [place] [address] 06/17/2025 10:28:52 06/17/2025 13:18:56 [id number] Manfred Shelton MD Main Office [address] [place] [address] 06/18/2025 10:16:09 06/18/2025 13:16:04 [id number] Manfred Shelton MD Main Office [address] [place] [address] 06/19/2025 10:44:19 06/19/2025 14:15:39 [id number] COLEMAN LAU ENERGY SPECIALIST Main Office [address] [place] [address] 06/22/2025 10:36:06 06/22/2025 14:32:28 [id number] Manfred Shelton MD Main Office [address] [place] [address] 06/23/2025 10:18:15 06/23/2025 14:03:00 [id number] Manfred Shelton MD Main Office [address] [place] [address] 06/24/2025 10:23:16 06/24/2025 13:37:08 [id number] Manfred Shelton MD Main Office [address] [place] [address] 06/25/2025 10:19:36 06/25/2025 14:27:35 [id number] Manfred Shelton MD Main Office [address] [place] [address] 06/26/2025 10:52:38 06/26/2025 16:27:47 [id number] Manfred Shelton MD Main Office [address] [place] [address] 06/29/2025 10:44:14 06/29/2025 13:39:12 [id number] Manfred Shelton MD Main Office [address] [place] [address] 06/30/2025 10:42:21 06/30/2025 13:46:39 [id number] Manfred Shelton MD Main Office [address] [place] [address] 07/01/2025 10:49:18 07/01/2025 13:25:24 5514 Manfred Shelton MD Main Office [address] [place] [address] 07/02/2025 10:15:06 07/03/2025 07:21:23 [id number] Manfred Shelton MD Main Office [address] [place] [address] 07/03/2025 10:50:33 07/03/2025 17:53:35 [id number] Manfred Shelton MD Main Office [address] [place] [address] 07/06/2025 10:54:52 07/06/2025 14:37:01 [id number] Manfred Shelton MD Main Office [address] [place] [address] 07/07/2025 10:14:11 07/08/2025 08:12:24 Health Concerns Section Related Observation LastModified by Organization Detai ls LastModified Time None Recorded Concern Status LastModified by Organization Details LastModified Time None Recorded Payers Encounter Date Sequence Insurance Name Policy Number Policy Gonzales Covered Member ID Gonzales Member ID Guarantor Name 07/07/2025 2 [employer] Seema Delacruz [id number] Seema Delacruz 07/07/2025 1 [employer] Seema Delacruz [id number] Seema Dealcruz OBGyn Episode No OBEpisode recorded.
--- OUTSIDE RECORDS SUMMARY | 2025-09-16 16:40 | XMS_ITS | Clinical Summary ---
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
--- OUTSIDE RECORDS SUMMARY | 2025-09-16 16:41 | XMS_ITS | Continuity of Care Document ---
Author Organization [place] - [facility], Main Office Address [address] [place] [address] Care Team Providers Care Loading Unit Operator Crimping Name Role Phone STEPHY YUSUF Primary Care Provider [phone] Assessment No assessment recorded. Plan of Treatment [...] Modified By Organization Details Last Modified Time 07/30/2025 1676 BACKGROUND: Seema Delacruz is a 55 y.o. [...] Diagnosis: L97.512, E11.621 Session Notes: Today's Date 30Jul2025 HBOT session 61 of 80 Next HBOT [id number] 30Jul - Patient cleared for 1st HBOT [...] antibiotics for an upper respiratory infection. Nicolasa SPOUT POSITIONER 07Aug- Patient cleared for HBOT today. VS stable. PAtient had little trouble reaching pressure today, but had to come out of chamber early due to needing to use restroom. She managed to do 4 segs-118 minutes. [place].Tanner SPOUT POSITIONER 08Aug - Patient cleared for HBOT today. VS stable. Patient completed full session with no problem. Antoinette Lau SPOUT POSITIONER 11Aug - Patient cleared for HBOT today. [...] full session with no problem. Antoinette Lau SPOUT POSITIONER 13Aug - Patient cleared for HBOT today. VS stable. Patient completed full session with no problem. Wound care to follow treatment today. Antoinette Lau APRN 14Aug - Patient cleared for HBOT today. VS stable. Patient completed full session with no problem. Antoinette Lau SPOUT POSITIONER 15Aug - Patient cleared for HBOT today. [...] attempt to try again on Sunday. Nicolasa SPOUT POSITIONER 18Aug - Patient cleared for HBOT today. VS stable. Patient completed full session with no problem. Antoinette Lau SPOUT POSITIONER 19Aug - Patient deemed safe for HBOT [...] full session with no problem. [place].Jessica Lau SPOUT POSITIONER 12Sep - Found safe for HBOT this [...] full session with no problem. IsraelIlsa Lau SPOUT POSITIONER 26Sep - Deemed safe for HBOT on this date and completed the full session uneventfully. [facility] [place] 29[place] - Patient cleared for HBOT today. VS stable. Patient completed 3 Seg session with no problem. M.ADeepali Lau SPOUT POSITIONER 30Sep - Patient cleared for HBOT today. VS stable. Patient completed full session with no problem. M.Jessica Lau SPOUT POSITIONER 01Oct - Patient cleared for HBOT today. VS stable. Patient completed full session with no problem. M.Jessica Lau SPOUT POSITIONER 02Oct - Cleared for HBOT this date [...] full session with no problem. [place].Jessica Lau SPOUT POSITIONER 15Oct - Patient cleared for HBOT today. VS stable. Patient completed full session with no problem. M.Jessica Lau SPOUT POSITIONER 16Oct - Patient cleared for HBOT today. VS stable. Patient completed full session with no problem. M.Jessica Lau SPOUT POSITIONER 17Oct - Patient cleared for HBOT today. VS stable. Patient completed full session with no problem. [place].Jessica Lau SPOUT POSITIONER 20Oct - Patient an hour late today due to transportation company. She can only do an hour, or she will not have a ride back home. Cleared for HBOT, VS stable. Finished 1 hour session with no issues or complaints. M.Tanner SPOUT POSITIONER 21Oct - Patient cleared for HBOT today. VS stable. Patient completed full session with no problem. M.ADeepali Lau SPOUT POSITIONER 22Oct - Patient cleared for HBOT today. VS stable. Patient completed full session with no problem. M.A. Judi HUTTONN 23Oct - Patient cleared for HBOT today. VS stable. Patient completed full session with no problem. Antoinette Sotoleyla SILVA 24Oct - Deemed safe for HBOT this date and did complete full session without problem. Estefania WATERS 27Oct - Patient cleared for HBOT today. [...] called in Augmentin to her pharmacy. Antoinette Judi SILVA 29Oct - Patient deemed safe for HBOT today. VS stable. Patient completed full session with no issues or problem. Antoinette Judi SILVA 30Oct - Cleared for HBOT this day and completed full session free of problem. Estefania WATERS [email or web address] Not available 07/31/2025 08:45:43 Reason for Referral None Reported. Results Created [...] Organization Details Recorded Time Upper respiratory infection [id number] Active 2024 COLEMAN LAU NP null, [place] - [facility] 12:18:40 Episodic migraine [id number] 06 Active 2024 COLEMAN LAU SAP BUSINESS OBJECTS CONSULTANT null, [place] [facility] 12:34:01 Type 2 diabetes mellitus [id number] Active 2024 COLEMAN LAU [employer] OB[employer] CONSULTANT null, [place] [facility] 15:27:12 Refractory migraine with aura [id number] Active 2024 COLEMAN LAU [employer] OB[employer] CONSULTANT null, [place] [facility] 10:56:52 Recurrent acute frontal sinusitis Active 2024 COLEMAN LAU [employer] OB[employer] CONSULTANT null, [place] - [facility] 12:47:05 Candidiasis of vagina 23006535 Active 2024 COLEMAN LAU NP null, [place] [facility] 12:47:26 Acute upper respiratory infection 90952404 Active 2024 COLEMAN LAU NP null, [place] [facility] 12:32:57 Problem Notes None recorded. Procedures Surgical History Date Name Laterality Status Provider Name and Address Organization Details Recorded Time 09/15/20 [facility] Therapy Treatment Form completed [facility] [place] [facility] 09/15/2025 12:48:40 09/14/20 [facility] Therapy Treatment Form completed COLEMAN LAU NP [place] - [facility] 09/14/2025 14:54:43 09/07/20 [facility] Therapy Treatment Form completed [facility] [place] [facility] 09/07/2025 12:38:58 08/31/20 25 [facility] Therapy Treatment Form completed [facility] - [facility] 08/31/2025 12:48:46 08/25/20 25 [facility] Therapy Treatment Form completed [facility] - [facility] 08/25/2025 12:52:26 08/24/20 25 [facility] Therapy Treatment Form completed [facility] - [facility] 08/24/2025 12:53:43 08/17/20 25 [facility] Therapy Treatment Form completed Carolyn roland [place] - [facility] 08/17/2025 13:02:48 08/14/20 25 [facility] Therapy Treatment Form completed Lisadipesh Sosa [place] - [facility] 08/14/2025 12:43:08 08/13/20 25 [facility] Therapy Treatment Form completed Carolyn roland [place] - [facility] 08/13/2025 12:27:58 08/12/20 25 [facility] Therapy Treatment Form completed Carolyn roland [place] - [facility] 08/12/2025 12:36:02 08/12/20 25 Wound completed COLEMAN LAU NP [place] - [facility] 08/12/2025 14:15:15 08/11/20 25 [facility] Therapy Treatment Form completed Carolyn roland [place] - [facility] 08/11/2025 12:58:18 08/10/20 25 [facility] Therapy Treatment Form completed [place]yn [place] [facility] 08/10/2025 12:57:23 08/04/20 25 [facility] Therapy Treatment Form completed COLEMAN LAU NP [place] [facility] 08/04/2025 13:51:50 08/03/20 25 [facility] Therapy Treatment Form completed COLEMAN LAU NP [place] [facility] 08/03/2025 14:17:35 07/30/20 25 [facility] Therapy Treatment Form completed Carolyn ro[place] - [facility] 07/30/2025 12:38:27 07/29/20 [...] Care Therapy Treatment Form completed [place] - [facility] 07/23/2025 12:41:49 07/22/20 25 [facility] Therapy Treatment Form completed Carolyn roland [place] - [facility] 07/22/2025 12:53:32 07/21/20 25 [facility] Therapy Treatment Form completed [place]yn [place] [facility] 07/21/2025 12:43:55 07/20/20 25 [facility] Therapy Treatment Form completed [place] [facility] 07/20/2025 12:58:21 07/17/20 [...] Care Therapy Treatment Form completed Carolyn [place] - [facility] 07/15/2025 12:39:29 07/14/20 25 [facility] Therapy Treatment Form completed COLEMAN LAU NP [place] - [facility] 07/14/2025 15:14:39 07/09/20 25 [facility] Therapy Treatment Form completed Carolyn ro[place] - [facility] 07/09/2025 12:46:05 07/08/20 25 [facility] Therapy Treatment Form completed Carolyn [place] [facility] 07/08/2025 12:41:28 07/07/20 [...] [facility] Therapy Treatment Form completed [facility] - [facility] 06/29/2025 13:24:58 06/26/20 25 [facility] Therapy Treatment Form completed Manfred Shelton [place] - [facility] 06/26/2025 16:57:55 06/25/20 25 [facility] Therapy Treatment Form completed [facility] - [facility] 06/25/2025 12:47:07 06/24/20 25 [facility] Therapy Treatment Form completed [facility] - [facility] 06/24/2025 12:40:20 06/23/20 25 [facility] Therapy Treatment Form completed [facility] - [facility] 06/23/2025 12:39:50 06/22/20 25 [facility] Therapy Treatment Form completed [facility] - [facility] 06/22/2025 12:49:55 06/19/20 25 [facility] Therapy Treatment Form completed Manfred Shelton [place] - [facility] 06/19/2025 14:13:24 06/18/20 25 [facility] Therapy Treatment Form completed COLEMAN LAU [place] [facility] 06/18/2025 13:17:34 06/17/20 25 [facility] Therapy Treatment Form completed [facility] - [facility] 06/17/2025 12:29:15 06/16/20 25 [facility] Therapy Treatment Form completed [facility] - [facility] 06/16/2025 12:45:53 06/15/20 25 [facility] Therapy Treatment Form completed [facility] - [facility] 06/15/2025 12:47:07 06/12/20 25 [facility] Therapy Treatment Form completed Manfred Shelton [place] - [facility] 06/12/2025 14:54:52 06/11/20 25 [facility] Therapy Treatment Form completed [facility] - [facility] 06/11/2025 13:02:39 06/10/20 25 [facility] Therapy Treatment Form completed [facility] - [facility] 06/10/2025 12:50:18 06/08/20 25 [facility] Therapy Treatment Form completed [facility] - [facility] 06/08/2025 12:56:07 06/05/20 25 [facility] Therapy Treatment Form completed Evelia Winters [place] - [facility] 06/05/2025 14:28:16 06/04/20 [...] Care Therapy Treatment Form completed Carolyn roland [place] - [facility] 05/29/2025 12:25:31 05/28/20 25 [facility] Therapy Treatment Form completed Carolyn luan [place] - [facility] 05/28/2025 13:02:44 05/27/20 25 Wound completed COLEMAN LAU NP [place] - [facility] 05/27/2025 13:18:22 05/27/20 25 [facility] Therapy Treatment Form completed Carolyn luan [place] - [facility] 05/27/2025 12:50:01 05/26/20 25 Nurse Note completed Luciana Noriega [place] [facility] 05/26/2025 16:40:42 05/26/20 25 [facility] Therapy Treatment Form completed Carolyn luan [place] - [facility] 05/26/2025 12:27:56 05/25/20 25 [facility] Therapy Treatment Form completed Carolyn luan [place] [facility] 05/25/2025 13:12:32 05/22/20 25 [facility] Therapy Treatment Form completed Carolyn luan [place] [facility] 05/22/2025 12:33:28 05/21/20 25 [facility] Therapy Treatment Form completed Carolyn luan [place] [facility] 05/21/2025 12:47:49 05/20/20 [...] Care Therapy Treatment Form completed Mary Miranda [place] - [facility] 04/29/2025 13:00:12 Knee [...] Not available Not available Not available 04/23/2025 51323 3 RxNorm Luciana servin, [place] - [facility] 14:25:27 1104 Avelox medicatio n Not available Not available Not available 04/23/2025 23004 6 RxNorm Luciana servin, [place] - [facility] 14:25:52 1105 metformin medicatio n other Not available low 04/23/20252023 6809 RxNorm GI issue s Luciana servin, [place] - [facility] 14:26:11 1253 Product containin g angiotens in-conver ting enzyme inhibitor (product) medicatio n cough moderate Not available 06/26/2025 42811 009 SNOMED Not Available taisha - [employer] - prod 09/26/202 5 10:54:20 1254 metformin hydrochlo ride medicatio n Not available Not available Not available 06/26/2025 62984 3 RxNorm Not Available [employer] Data Service - prod 5 10:54:20 1358 ceftriaxo ne medicatio n rash moderate Not available 07/15/2025 2193 RxNorm Not Available [employer] - prod 5 10:18:57 1359 droperido l medicatio n dyspnea Not available Not available 07/15/2025 3648 RxNorm Not Available [employer] - prod 5 10:18:57 1360 moxifloxa beck medicatio n rash moderate Not available 07/15/2025 07239 2 RxNorm Not Available [employer] - [employer] 5 10:18:57 1461 moxifloxa beck hydrochlo ride medicatio n Not available Not available Not available 08/24/20252015 69956 0 RxNorm Not Available [employer] - [employer] 5 04:35:37 Medications Name Sig Start Date [...] Updated DateTime 5 88 /min 16 /min 99.3 [degF] 87 % 84 /min 16 /min 98.4 [degF] 92 % 165/96 mm[Hg] 128/73 mm[Hg] Carolyn BER[place] - [facility] 5 12:38:43 Social History None recorded. Functional Status None [...] [id number] Manfred Shelton MD Main Office [address] [address] 06/30/2025 10:42:21 06/30/2025 13:46:39 [id number] Manfred Shelton MD Main Office [address] [address] 07/01/2025 10:49:18 07/01/2025 13:25:24 [id number] Manfred Shelton MD Main Office [address] [address] 07/02/2025 10:15:06 07/03/2025 07:21:23 [id number] Manfred Shelton MD Main Office [address] [address] 07/03/2025 10:50:33 07/03/2025 17:53:35 [id number] Manfred Shelton MD Main Office [address] [address] 07/06/2025 10:54:52 07/06/2025 14:37:01 [id number] Manfred Shelton MD Main Office [address] [place] [address] 07/07/2025 10:14:11 07/08/2025 08:12:24 [id number] Manfred Shelton MD Main Office [address] [place] [address] 07/08/2025 10:22:23 07/08/2025 19:57:51 [id number] Manfred Shelton MD Main Office [address] [place] [address] 07/09/2025 10:23:51 07/09/2025 16:04:46 [id number] Manfred Shelton MD Main Office [address] [place] [address] 07/14/2025 10:06:05 07/14/2025 15:15:47 [id number] Manfred Shelton MD Main Office [address] [place] [address] 07/15/2025 10:17:40 07/15/2025 13:26:46 [id number] Manfred Shelton MD Main Office [address] [place] [address] 07/15/2025 14:45:53 07/15/2025 14:48:12 [id number] Manfred Shelton MD Main Office [address] [place] [address] 07/16/2025 10:18:19 07/16/2025 14:20:47 [id number] Manfred Shelton MD Main Office [address] [place] [address] 07/17/2025 10:06:47 07/17/2025 14:10:36 Refractory migraine with aura [id number] G43.160 [id number] Manfred Shelton MD Main Office [address] [place] [address] 07/20/2025 11:09:11 07/20/2025 14:45:37 [id number] Manfred Shelton MD Main Office [address] [place] [address] 07/21/2025 10:11:12 07/21/2025 12:49:36 [id number] Manfred Shelton MD Main Office [address] [place] [address] 07/22/2025 10:10:07 07/22/2025 13:11:46 [id number] Manfred Shelton MD Main Office [address] [place] [address] 07/23/2025 10:48:45 07/23/2025 15:03:21 [id number] Manfred Shelton MD Main Office [address] [place] [address] 07/24/2025 10:18:12 07/24/2025 17:58:24 [id number] Manfred Shelton MD Main Office [address] [place] [address] 07/27/2025 10:15:44 07/27/2025 14:05:56 [id number] Manfred Shelton MD Main Office [address] [place] [address] 07/28/2025 10:36:12 07/28/2025 13:58:27 [id number] Manfred Shelton MD Main Office [address] [place] [address] 07/29/2025 10:14:56 07/29/2025 13:38:02 [id number] Manfred Shelton MD Main Office [address] [place] [address] 07/30/2025 10:32:11 07/31/2025 08:45:48 Health Concerns Section Related Observation LastModified by Organization Detai ls LastModified Time None Recorded Concern Status LastModified by Organization Details LastModified Time None Recorded Payers Encounter Date Sequence Insurance Name Policy Number Policy Gonzales Covered Member ID Gonzales Member ID Guarantor Name 07/30/2025 2 [employer] Seema Delacruz [id number] Seema Delacruz 07/30/2025 1 [employer] Seema Delacruz [id number] Seema Scott Episode No OBEpisode recorded.
--- OUTSIDE RECORDS SUMMARY | 2025-09-16 16:41 | XMS_ITS | Continuity of Care Document ---
Author Organization [place] [facility], Main Office Address [address] [place] [address] Care Team Providers Care Rn Oncology Research Name Role Phone STEPHY YUSUF Primary Care Provider [phone] Assessment No assessment recorded. Plan of Treatment [...] By Organization Details Last Modified Time 06/23/2025 7642 BACKGROUND: Seema Delacruz is a 55 y.o. [...] HBOT session 36 of 40 Next HBOT [id number] 30Jul - Patient cleared for 1st HBOT [...] session with no problem. Antoinette Lau [employer] 04Aug - Patient deemed safe for HBOT [...] for an upper respiratory infection. Nicolasa [employer] 07Aug- Patient cleared for HBOT today. VS stable. PAtient had little trouble reaching pressure today, but had to come out of chamber early due to needing to use restroom. She managed to do 4 segs-118 minutes. [place].Tanner [employer] 08Aug - Patient cleared for HBOT today. VS stable. Patient completed full session with no problem. Antoinette Lau [employer] 11Aug - Patient cleared for HBOT today. [...] session with no problem. Antoinette Lau [employer] 13Aug - Patient cleared for HBOT today. VS stable. Patient completed full session with no problem. Wound care to follow treatment today. Antoinette Lau APRN 14Aug - Patient cleared for HBOT today. VS stable. Patient completed full session with no problem. Antoinette Lau [employer] 15Aug - Patient cleared for HBOT today. [...] to try again on Sunday. Nicolasa [employer] 18Aug - Patient cleared for HBOT today. VS stable. Patient completed full session with no problem. Antoinette Lau [employer] 19Aug - Patient deemed safe for HBOT today. VS stable. FSBS within range. Patient completed full session with no problem. Antoinette Lau [employer] 2015Aug - Patient cleared for HBOT today. [...] significant anxiety. Dressing change today per nursing. [facility] [place] - Patient deemed safe for HBOT [...] date andcompleted full session free of problem. [facility] [place] 29Aug - Cleared for HBOT his date and completed full session free of problem. Of note, this patient continues to smoke tobacco cigarettes. [facility] [place] 02[place] - Patient deemed safe for HBOT [...] above 80 and was discharged with 92. [facility] [place] 08[place] - Patient deemed safe for HBOT today. VS stable. Patient completed full session with no problem. Antoinette Lau APRN 10Sep - Patient deemed safe for HBOT today. VS stable. Patient completed full session with no problem. Antoinette Lau APRN 11Sep - Patient cleared for HBOT today. VS stable. Patient completed full session with no problem. IsraelIlsa Lau APRN 12Sep - Found safe for HBOT this date. Completed curtailed session free of problem. Session shortened to satisfy demand of ride provider. [facility] [place] 15[place] - Patient cleared for HBOT today. [...] was to proceed to another medical appointment. [facility] [place] 22[place] - Patient cleared for HBOT today. [...] Organization Details Recorded Time Upper respiratory infection [id number] Active 2024 COLEMAN LAU [employer] null, [place] - [facility] 12:18:40 Episodic migraine [id number] 06 Active 2024 COLEMAN LAU [employer] null, [place] [facility] 12:34:01 Type 2 diabetes mellitus [id number] Active 2024 COLEMAN LAU [employer] null, [place] [facility] 15:27:12 Refractory migraine with aura 303450024 Active 2024 COLEMAN LAU [employer] null, [place] [facility] 10:56:52 Recurrent acute frontal sinusitis Active 2024 COLEMAN LAU NP null, [place] - [facility] 12:47:05 Candidiasis of vagina 66092372 Active 2024 COLEMAN LAU NP null, [place] [facility] 12:47:26 Acute upper respiratory infection 06851749 Active 2024 COLEMAN LAU NP null, [place] - [facility] 12:32:57 Problem Notes None recorded. Procedures Surgical History Date Name Laterality Status Provider Name and Address Organization Details Recorded Time 09/15/20 [facility] Therapy Treatment Form completed [facility] - [facility] 09/15/2025 12:48:40 09/14/20 [facility] Therapy Treatment Form completed COLEMAN LAU NP [place] - [facility] 09/14/2025 14:54:43 09/07/20 25 [facility] Therapy Treatment Form completed [facility] - [facility] 09/07/2025 12:38:58 08/31/20 25 [facility] Therapy Treatment Form completed [facility] - [facility] 08/31/2025 12:48:46 08/25/20 25 [facility] Therapy Treatment Form completed [facility] - [facility] 08/25/2025 12:52:26 08/24/20 25 [facility] Therapy Treatment Form completed [facility] - [facility] 08/24/2025 12:53:43 08/17/20 25 [facility] Therapy Treatment Form completed Carolyn sharp [place] - [facility] 08/17/2025 13:02:48 08/14/20 25 [facility] Therapy Treatment Form completed Lisa Sosa [place] - [facility] 08/14/2025 12:43:08 08/13/20 25 [facility] Therapy Treatment Form completed Carolyn roland [place] - [facility] 08/13/2025 12:27:58 08/12/20 25 [facility] Therapy Treatment Form completed Carolyn roland [place] - [facility] 08/12/2025 12:36:02 08/12/20 25 Wound completed COLEMAN LAU NP [place] - [facility] 08/12/2025 14:15:15 08/11/20 25 [facility] Therapy Treatment Form completed Carolyn roland [place] - [facility] 08/11/2025 12:58:18 [...] completed Carolyn BERNAL - [facility] 07/23/2025 12:41:49 07/22/20 25 [facility] Therapy Treatment Form completed Carolyn BERNAL - [facility] 07/22/2025 12:53:32 07/21/20 25 [facility] Therapy Treatment Form completed Carolyn roland [place] - [facility] 07/21/2025 12:43:55 07/20/20 25 [facility] Therapy Treatment Form completed Carolyn roland [place] - [facility] 07/20/2025 12:58:21 07/17/20 [...] [facility] Therapy Treatment Form completed [facility] - [facility] 06/29/2025 13:24:58 06/26/20 25 [facility] Therapy Treatment Form completed Manfred Shelton MD [place] - [facility] 06/26/2025 16:57:55 06/25/20 25 [facility] Therapy Treatment Form completed [facility] - [facility] 06/25/2025 12:47:07 06/24/20 25 [facility] Therapy Treatment Form completed [facility] - [facility] 06/24/2025 12:40:20 06/23/20 25 [facility] Therapy Treatment Form completed [facility] - [facility] 06/23/2025 12:39:50 06/22/20 25 [facility] Therapy Treatment Form completed [facility] - [facility] 06/22/2025 12:49:55 06/19/20 25 [facility] Therapy Treatment Form completed Manfred Shelton MD [place] - [facility] 06/19/2025 14:13:24 06/18/20 25 [facility] Therapy Treatment Form completed COLEMAN LAU NP [place] - [facility] 06/18/2025 13:17:34 06/17/20 25 [facility] Therapy Treatment Form completed [facility] - [facility] 06/17/2025 12:29:15 06/16/20 25 [facility] Therapy Treatment Form completed [facility] - [facility] 06/16/2025 12:45:53 06/15/20 25 [facility] Therapy Treatment Form completed [facility] - [facility] 06/15/2025 12:47:07 06/12/20 25 [facility] Therapy Treatment Form completed Manfred Shelton MD [place] - [facility] 06/12/2025 14:54:52 06/11/20 25 [facility] Therapy Treatment Form completed [facility] - [facility] 06/11/2025 13:02:39 06/10/20 25 [facility] Therapy Treatment Form completed [facility] - [facility] 06/10/2025 12:50:18 06/08/20 25 [facility] Therapy Treatment Form completed [facility] - [facility] 06/08/2025 12:56:07 [...] [place] [facility] 05/19/2025 13:53:26 08/18/20 25 [facility] Therapy Treatment Form [...] Care Therapy Treatment Form completed Mary Miranda [place] - [facility] 04/29/2025 13:00:12 Knee Replacement completed Luciana Noriega [place] - [facility] 04/23/2025 14:32:38 procedure [...] Not available Not available Not available 04/23/2025 60592 3 RxNorm Luciana servin, [place] - [facility] 14:25:27 1104 Avelox medicatio n Not available Not available Not available 04/23/2025 13123 6 RxNorm Luciana servin, [place] - [facility] 14:25:52 1105 metformin medicatio n other Not available low 04/23/20252023 6809 RxNorm GI issue s Luciana servin, [place] - [facility] 14:26:11 1253 Product containin g angiotens in-conver ting enzyme inhibitor (product) medicatio n cough moderate Not available 06/26/2025 59382 009 SNOMED Not Available taisha - [employer] - prod 10:54:20 1254 metformin hydrochlo ride medicatio n Not available Not available Not available 06/26/2025 48672 3 RxNorm Not Available [employer] - prod 5 10:54:20 1358 ceftriaxo ne medicatio n rash moderate Not available 07/15/2025 2193 RxNorm Not Available [employer] [employer] - prod 5 10:18:57 1359 droperido l medicatio n dyspnea Not available Not available 07/15/2025 3648 RxNorm Not Available [facility] [employer] - prod 5 10:18:57 1360 moxifloxa beck medicatio n rash moderate Not available 07/15/2025 81322 2 RxNorm Not Available [employer] - [employer] 5 10:18:57 1461 moxifloxa beck hydrochlo ride medicatio n Not available Not available Not available 08/24/20252015 22975 0 RxNorm Not Available [employer] - prod 5 04:35:37 Medications [...] [degF] 93 % 169/78 mm[Hg] 138/76 mm[Hg] [facility] 5 12:40:08 Social History None [...] COLEMAN LAU NP Main Office [address] [address] 05/25/2025 10:54:17 05/25/2025 14:23:41 [id number] COLEMAN LAU NP Main Office [address] [address] 05/26/2025 10:04:52 05/26/2025 13:22:24 [id number] COLEMAN LAU NP Main Office [address] [address] 05/26/2025 16:38:48 05/26/2025 16:40:45 [id number] COLEMAN LAU NP Main Office [address] [address] 05/27/2025 10:11:43 05/27/2025 13:22:20 [id number] COLEMAN LAU NP Main Office [address] [address] 05/27/2025 13:11:38 05/27/2025 13:19:10 [id number] Manfred Shelton MD Main Office [address] [place] [address] 05/28/2025 10:14:13 05/29/2025 08:47:13 [id number] Manfred Shelton MD Main Office [address] [place] [address] 05/29/2025 10:04:58 05/29/2025 17:43:48 [id number] Manfred Shelton MD Main Office [address] [place] [address] 06/02/2025 10:25:50 06/02/2025 14:14:27 [id number] Manfred Shelton MD Main Office [address] [place] [address] 06/03/2025 10:16:52 06/03/2025 14:45:20 [id number] Manfred Shelton MD Main Office [address] [place] [address] 06/04/2025 10:31:23 06/04/2025 13:58:07 [id number] Manfred Shelton MD Main Office [address] [place] [address] 06/04/2025 14:13:52 06/04/2025 14:25:08 [id number] Manfred Shelton MD Main Office [address] [place] [address] 06/05/2025 10:55:07 06/05/2025 16:50:44 [id number] Manfred Shelton MD Main Office [address] [place] [address] 06/08/2025 10:25:37 06/08/2025 14:39:12 [id number] Manfred Shelton MD Main Office [address] [place] [address] 06/10/2025 10:19:13 06/10/2025 13:21:20 [id number] Manfred Shelton MD Main Office [address] [place] [address] 06/11/2025 10:35:04 06/11/2025 14:11:07 [id number] Manfred Shelton MD Main Office [address] [place] [address] 06/12/2025 10:59:45 06/12/2025 14:56:49 [id number] Manfred Shelton MD Main Office [address] [place] [address] 06/15/2025 10:50:33 06/15/2025 13:14:21 [id number] Manfred Shelton MD Main Office [address] [place] [address] 06/16/2025 10:14:56 06/16/2025 13:52:36 [id number] Manfred Shelton MD Main Office [address] [place] [address] 06/17/2025 10:28:52 06/17/2025 13:18:56 [id number] Manfred Shelton MD Main Office [address] [place] [address] 06/18/2025 10:16:09 06/18/2025 13:16:04 [id number] Manfred Shelton MD Main Office [address] [place] [address] 06/19/2025 10:44:19 06/19/2025 14:15:39 [id number] COLEMAN LAU NP Main Office [address] [place] [address] 06/22/2025 10:36:06 06/22/2025 14:32:28 [id number] Manfred Shelton MD Main Office [address] [place] [address] 06/23/2025 10:18:15 06/23/2025 14:03:00 Health Concerns Section Related Observation LastModified by Organization Detai ls LastModified Time None Recorded Concern Status LastModified by Organization Details LastModified Time None Recorded Payers Encounter Date Sequence Insurance Name Policy Number Policy Gonzales Covered Member ID Gonzales Member ID Guarantor Name 06/23/2025 2 [employer] [facility] Seema Delacruz [id number] Seema Delacruz 06/23/2025 1 [employer] Seema Delacruz [id number] Seema Delacruz OBGyn Episode No OBEpisode recorded.
--- OUTSIDE RECORDS SUMMARY | 2025-09-16 16:41 | XMS_ITS | Continuity of Care Document ---
Author Organization [place] [facility], Main Office Address [address] [place] [address] Care Team Providers Care Patient Consumer Marketer Name Role Phone STEPHY YUSUF Primary Care [...] Modified By Organization Details Last Modified Time 08/31/2025 [id number] BACKGROUND: Seema Delacruz is a 55 y.o. [...] Diagnosis: L97.512, E11.621 Session Notes: Today's Date [id number] HBOT session 72 of 80 Next HBOT [id number] 30Jul - Patient cleared for 1st HBOT [...] full session with no problem. Antoinette Lau [employer] 04Aug - Patient deemed safe for HBOT [...] antibiotics for an upper respiratory infection. Nicolasa [employer] DEVELOPER 07Aug- Patient cleared for HBOT today. VS stable. PAtient had little trouble reaching pressure today, but had to come out of chamber early due to needing to use restroom. She managed to do 4 segs-118 minutes. [place].Tanner [employer] DEVELOPER 08Aug - Patient cleared for HBOT today. VS stable. Patient completed full session with no problem. Antoinette Lau [employer] DEVELOPER 11Aug - Patient cleared for HBOT today. [...] full session with no problem. Antoinette Lau [employer] WE[employer] DEVELOPER 13Aug - Patient cleared for HBOT today. VS stable. Patient completed full session with no problem. Wound care to follow treatment today. Antoinette Lau APRN 14Aug - Patient cleared for HBOT today. VS stable. Patient completed full session with no problem. Antoinette Lau [employer] DEVELOPER 15Aug - Patient cleared for HBOT today. [...] attempt to try again on Sunday. Nicolasa [employer] DEVELOPER 18Aug - Patient cleared for HBOT today. VS stable. Patient completed full session with no problem. Antoinette Lau [employer] DEVELOPER 19Aug - Patient deemed safe for HBOT today. VS stable. FSBS within range. Patient completed full session with no problem. Antoinette Lau [employer] DEVELOPER 2015Aug - Patient cleared for HBOT today. [...] significant anxiety. Dressing change today per nursing. [facility] 25Aug - Patient deemed safe for HBOT [...] date andcompleted full session free of problem. [facility] 29Aug - Cleared for HBOT his date and completed full session free of problem. Of note, this patient continues to smoke tobacco cigarettes. [facility] 02Sep - Patient deemed safe for HBOT [...] above 80 and was discharged with 92. [facility] 08Sep - Patient deemed safe for HBOT [...] shortened to satisfy demand of ride provider. [facility] 15Sep - Patient cleared for HBOT today. [...] was to proceed to another medical appointment. [facility] 22Sep - Patient cleared for HBOT today. [...] full session with no problem. MIlsa Lau [employer] DEVELOPER 26Sep - Deemed safe for HBOT on this date and completed the full session uneventfully. [facility] 29Sep - Patient cleared for HBOT today. VS stable. Patient completed 3 Seg session with no problem. M.Jessica Lau [employer] DEVELOPER 30Sep - Patient cleared for HBOT today. VS stable. Patient completed full session with no problem. M.Jessica Lau [employer] WE[employer] DEVELOPER 01Oct - Patient cleared for HBOT today. VS stable. Patient completed full session with no problem. M.Jessica Lau [employer] WE[employer] DEVELOPER 02Oct - Cleared for HBOT this date and completed full session free of problem. [facility] 03Oct - Deemed safe for HBOT today and completed her full session without problem. [facility] 06Oct - Found safe for HBOT this date and tolerated her session free of problem. [facility] 07Oct- Cleared for HBOT this date and completed the full session without problem. [facility] 08Oct - Glu on arrival marginal so given caloric intake first and then cleared for HBOT this day. Had no problem completing full session emerging at Glu 139. [facility] 09Oct - Deemed safe for HBOT today and completed full session without problem. [facility] 14Oct - Patient returns after being out ill. Cleared for HBOT today. VS stable. Patient completed full session with no problem. Anotinette Lau [employer] WE[employer] DEVELOPER 15Oct - Patient cleared for HBOT today. VS stable. Patient completed full session with no problem. M.Jessica Lau [employer] DEVELOPER 16Oct - Patient cleared for HBOT today. VS stable. Patient completed full session with no problem. M.Jessica Lau [employer] WE[employer] DEVELOPER 17Oct - Patient cleared for HBOT today. VS stable. Patient completed full session with no problem. [place].Jessica Lau [employer] DEVELOPER 20Oct - Patient an hour late today due to transportation company. She can only do an hour, or she will not have a ride back home. Cleared for HBOT, VS stable. Finished 1 hour session with no issues or complaints. M.Tanner [employer] DEVELOPER 21Oct - Patient cleared for HBOT today. VS stable. Patient completed full session with no problem. M.Jessica Lau [employer] DEVELOPER 22Oct - Patient cleared for HBOT today. VS stable. Patient completed full session with no problem. Antoinette Lau APRN 23Oct - Patient cleared for HBOT today. VS stable. Patient completed full session with no problem. Antoinette Lau APRN 24Oct - Deemed safe for HBOT this date and did complete full session without problem. [facility] 27Oct - Patient cleared for HBOT today. [...] SANTY today with no issues. M.Jessica SotoJudi [employer] WE[employer] DEVELOPER 05-07Nov - patient out ill - [facility] 10Nov - Patient deemed safe for HBOT today. VS stable. Patient completed full session with no issues or problem. [place].Monica. Judi [employer] DEVELOPER 11Nov - Patient cleared for HBOT today. VS stable. Patient completed full session with no problem. [place].Monica. [place] [employer] DEVELOPER 12Nov - Patient deemed safe for HBOT today. VS stable. Patient able to complete full session with no issues or problems. Wound care done after treatment today. [place].Monica. Judi [employer] DEVELOPER 13Nov - Patient cleared for HBOT today. VS stable. Patient able to complete full session with no issues or problems. [place].Monica. Judi [employer] DEVELOPER 14Nov - Deemed safe for HBOT today and completed full session uneventfully. Additional care: [id number] for DX L97.512 and Ell.621 - Following [...] nor deeper tissue infection. Patient states her photography editor, Dr Ortiz, has already ordered MRI but [...] session with no issues or problems. [place].MonicaDeepali [place] [employer] DEVELOPER 18-21Nov - patient out ill - [facility] 24Nov - Patient deemed safe for HBOT today. VS stable. Patient able to complete full session with no problems or issues. CompaDeepali Lau [employer] DEVELOPER 25Nov - Patient cleared for HBOT today. VS stable. Patient able to complete full session with no issues or problems. Antoinette Judi [employer] DEVELOPER 01Dec - Patient deemed safe for HBOT today. VS stable. Patient able to complete full session with no problems or issues. CompaDeepali Lau [employer] DEVELOPER Not available 08/31/2025 13:53:47 Reason for Referral None Reported. Problems Name Problem SNOMED Code Status Onset Date Resolution Date Notes Provider Name and Address Organization Details Recorded Time Upper respiratory infection 12609204 Active 2024 COLEMAN LAU NP null, [place] - [facility] 12:18:40 Episodic migraine 7870332891098 Active 2024 COLEMAN LAU NP null, [place] [facility] 12:34:01 Type 2 diabetes mellitus 52365647 Active 2024 COLEMAN LAU NP null, [place] - [facility] 15:27:12 Refractory migraine with aura 996062822 Active 2024 COLEMAN LAU NP null, [place] [facility] 10:56:52 Recurrent acute frontal sinusitis Active 2024 COLEMAN LAU NP null, [place] [facility] 12:47:05 Candidiasis of vagina 57371960 Active 2024 COLEMAN LAU NP null, [place] [facility] 12:47:26 Acute upper respiratory infection 12514595 Active 2024 COLEMAN LAU NP null, [place] [...] completed Carolyn BERNAL - [facility] 09/07/2025 12:38:58 08/31/20 25 [facility] Therapy Treatment Form completed Carolyn roland [place] - [facility] 08/31/2025 12:48:46 08/25/20 25 [facility] Therapy Treatment Form completed Carolyn roland [place] - [facility] 08/25/2025 12:52:26 08/24/20 25 [facility] Therapy Treatment Form completed Carolyn roland [place] - [facility] 08/24/2025 12:53:43 08/17/20 25 [facility] Therapy Treatment Form completed Carolyn roland [place] - [facility] 08/17/2025 13:02:48 08/14/20 25 [facility] Therapy Treatment Form completed Lisadipesh Sosa [place] - [facility] 08/14/2025 12:43:08 08/13/20 25 [facility] Therapy Treatment Form completed Carolyn roland [place] - [facility] 08/13/2025 12:27:58 08/12/20 25 [facility] Therapy Treatment Form completed Carolyn roland [place] - [facility] 08/12/2025 12:36:02 08/12/20 25 Wound completed COLEMAN LAU NP [place] - [facility] 08/12/2025 14:15:15 08/11/20 25 [facility] Therapy Treatment Form completed Carolyn roland [place] - [facility] 08/11/2025 12:58:18 08/10/20 25 [facility] Therapy Treatment Form completed Carolyn roland [place] - [facility] 08/10/2025 12:57:23 08/04/20 25 [facility] Therapy Treatment Form completed COLEMAN LAU NP [place] [facility] 08/04/2025 13:51:50 08/03/20 25 [facility] Therapy Treatment Form completed ABDOULAYE HAQ - [facility] 08/03/2025 14:17:35 07/30/20 25 [facility] Therapy Treatment Form completed Carolyn roland [place] - [facility] 07/30/2025 12:38:27 07/29/20 25 [facility] Therapy Treatment Form completed Carolyn roland [place] - [facility] 07/29/2025 12:40:06 07/28/20 [...] Oxygen Care Therapy Treatment Form completed [facility] - [facility] 07/23/2025 12:41:49 07/22/20 [facility] Therapy Treatment Form completed [facility] - [facility] 07/22/2025 12:53:32 07/21/20 [facility] Therapy Treatment Form completed [facility] - [facility] 07/21/2025 12:43:55 07/20/20 [facility] Therapy Treatment Form completed [facility] - [facility] 07/20/2025 12:58:21 07/17/20 [facility] Therapy Treatment Form completed Lisadipesh Sosa [place] - [facility] 07/17/2025 12:35:46 07/16/20 [facility] Therapy Treatment Form completed Frank Gage [place] - [facility] 07/16/2025 16:54:47 07/15/20 25 Wound completed COELMAN LAU NP [place] [facility] 07/15/2025 14:47:28 07/15/20 [facility] Therapy Treatment Form completed [facility] - [facility] 07/15/2025 12:39:29 07/14/20 25 [facility] Therapy Treatment Form completed COLEMAN LAU NP [place] [facility] 07/14/2025 15:14:39 07/09/20 [facility] Therapy Treatment Form completed [facility] - [facility] 07/09/2025 12:46:05 07/08/20 25 [facility] Therapy Treatment Form completed [facility] - [facility] 07/08/2025 12:41:28 07/07/20 25 [facility] Therapy Treatment Form completed Manfred Shelton MD [place] - [facility] 07/08/2025 08:10:21 07/06/20 25 [facility] Therapy Treatment Form completed [facility] - [facility] 07/06/2025 13:06:29 [...] Oxygen Care Therapy Treatment Form completed [facility] - [facility] 06/29/2025 13:24:58 06/26/20 25 [facility] Therapy Treatment Form completed Manfred Shelton MD [place] - [facility] 06/26/2025 16:57:55 06/25/20 25 [facility] Therapy Treatment Form completed [facility] - [facility] 06/25/2025 12:47:07 06/24/20 25 [facility] Therapy Treatment Form completed [facility] - [facility] 06/24/2025 12:40:20 06/23/20 25 [facility] Therapy Treatment Form completed [facility] - [facility] 06/23/2025 12:39:50 06/22/20 25 [facility] Therapy Treatment Form completed [facility] - [facility] 06/22/2025 12:49:55 06/19/20 25 [facility] Therapy Treatment Form completed Manfred Shelton MD [place] - [facility] 06/19/2025 14:13:24 06/18/20 25 [facility] Therapy Treatment Form completed COLEMAN LAU NP [place] - [facility] 06/18/2025 13:17:34 06/17/20 25 [facility] Therapy Treatment Form completed [facility] - [facility] 06/17/2025 12:29:15 06/16/20 25 [facility] Therapy Treatment Form completed [facility] - [facility] 06/16/2025 12:45:53 06/15/20 25 [facility] Therapy Treatment Form completed [facility] - [facility] 06/15/2025 12:47:07 06/12/20 25 [facility] Therapy Treatment Form completed Manfred Shelton MD [place] - [facility] 06/12/2025 14:54:52 06/11/20 25 [facility] Therapy Treatment Form completed [facility] [place] [facility] 06/11/2025 13:02:39 06/10/20 25 [facility] Therapy Treatment Form completed [facility] [place] [facility] 06/10/2025 12:50:18 06/08/20 25 [facility] Therapy Treatment Form completed [facility] [place] [facility] [...] Care Therapy Treatment Form completed [facility] [place] [facility] 06/02/2025 13:09:37 05/29/20 25 [facility] Therapy Treatment Form completed [facility] - [facility] 05/29/2025 12:25:31 05/28/20 25 [facility] Therapy Treatment Form completed [facility] [place] [facility] 05/28/2025 13:02:44 05/27/20 25 Wound completed COLEMAN LAU NP [place] - [facility] 05/27/2025 13:18:22 05/27/20 25 [facility] Therapy Treatment Form completed [facility] [place] [facility] 05/27/2025 12:50:01 05/26/20 25 Nurse Note completed Luciana Noriega [place] [facility] 05/26/2025 16:40:42 05/26/20 25 [facility] Therapy Treatment Form completed [facility] [place] [facility] 05/26/2025 12:27:56 05/25/20 25 [facility] Therapy Treatment Form completed [facility] - [facility] 05/25/2025 13:12:32 05/22/20 25 [facility] Therapy Treatment Form completed [facility] - [facility] 05/22/2025 12:33:28 [...] Not available Not available Not available 04/23/2025 74093 3 RxNorm Luciana servin, [place] - [facility] 14:25:27 1104 Avelox medicatio n Not available Not available Not available 04/23/2025 63602 6 RxNorm Luciana servin, [place] - [facility] 5 14:25:52 1105 metformin medicatio n other Not available low 04/23/20252023 6809 RxNorm GI issue s Luciana [place] - [facility] 5 14:26:11 1253 Product containin g angiotens in-conver ting enzyme inhibitor (product) medicatio n cough moderate Not available 06/26/2025 09581 009 SNOMED Not Available taisha - External Data Service - prod 5 10:54:20 1254 metformin hydrochlo ride medicatio n Not available Not available Not available 06/26/2025 22713 3 RxNorm Not Available [facility] [employer] - prod 5 10:54:20 1358 ceftriaxo ne medicatio n rash moderate Not available 07/15/2025 2193 RxNorm Not Available ta[facility] Data Service - prod 5 10:18:57 1359 droperido l medicatio n dyspnea Not available Not available 07/15/2025 3648 RxNorm Not Available [facility] - prod 5 10:18:57 1360 moxifloxa beck medicatio n rash moderate Not available 07/15/2025 30976 2 RxNorm Not Available ta[facility] [employer] [facility] - prod 5 10:18:57 1461 moxifloxa beck hydrochlo ride medicatio n Not available Not available Not available 08/24/20252015 67827 0 RxNorm Not Available taisha [facility] - prod 5 04:35:37 Medications [...] [degF] 89 % 158/84 mm[Hg] 144/77 mm[Hg] [facility] 5 12:49:01 Social History None recorded. Functional Status None [...] ICD10 Code Diagnosis IMO Codes Diagnosis Note [id number] Manfred Shelton MD Main Office [address] [place] [address] 08/01/2025 08:56:19 08/01/2025 09:05:22 [id number] Manfred Shelton MD Main Office [address] [place] [address] 08/03/2025 10:12:43 08/03/2025 14:18:16 [id number] Manfred Shelton MD Main Office [address] [place] [address] 08/04/2025 10:18:33 08/04/2025 13:52:38 [id number] Manfred Shelton MD Main Office [address] [place] [address] 08/10/2025 10:19:50 08/10/2025 13:54:24 [id number] Manfred Shelton MD Main Office [address] [place] , [place] [address] 08/11/2025 10:13:33 08/11/2025 14:13:40 [id number] Manfred Shelton MD Main Office [address] [place] [address] 08/12/2025 10:17:32 08/12/2025 14:16:09 [id number] Manfred Shelton MD Main Office [address] [place] , [place] [address] 08/13/2025 09:43:21 08/13/2025 15:50:31 [id number] Manfred Shelton MD Main Office [address] [place] , [place] [address] 08/14/2025 10:42:31 08/14/2025 19:25:25 [id number] Manfred Shelton MD Main Office [address] [place] , [place] [address] 08/17/2025 10:11:40 08/17/2025 13:45:10 [id number] Manfred Shelton MD Main Office [address] [place] , [place] [address] 08/24/2025 10:23:30 08/24/2025 13:10:50 [id number] Manfred Shelton MD Main Office [address] [place] [address] 08/25/2025 10:36:28 08/25/2025 13:49:08 [id number] Manfred Shelton MD Main Office [address] [place] [address] 08/31/2025 10:01:37 08/31/2025 13:53:53 Health Concerns Section Related Observation LastModified by Organization Detai ls LastModified Time None Recorded Concern Status LastModified by Organization Details LastModified Time None Recorded Payers Encounter Date Sequence Insurance Name Policy Number Policy Gonzales Covered Member ID Gonzales Member ID Guarantor Name 08/31/2025 2 [employer] [facility] Seema Delacruz [id number] Seema Delacruz 08/31/2025 1 [employer] Seema Delacruz [id number] Seema Delacruz OBGyn Episode No OBEpisode recorded.
--- OUTSIDE RECORDS SUMMARY | 2025-09-16 16:41 | XMS_ITS | Continuity of Care Document ---
Author Organization [place] - [facility], Main Office Address [address] [place] [address] Care Team Providers Care Import Coordinator Name Role Phone STEPHY YUSUF Primary Care [...] By Organization Details Last Modified Time 06/18/2025 5341 BACKGROUND: Seema Delacruz is a 55 y.o. [...] E11.621 ___ ___ Session Notes: Today's Date [id number] HBOT session 33 of 40 Next HBOT [id number] 30Jul - Patient cleared for 1st HBOT [...] antibiotics for an upper respiratory infection. Nicolasa CUSTOMER ACCOUNT SPECIALIST 07Aug- Patient cleared for HBOT today. VS stable. PAtient had little trouble reaching pressure today, but had to come out of chamber early due to needing to use restroom. She managed to do 4 segs-118 minutes. [place].Tanner CUSTOMER ACCOUNT SPECIALIST 08Aug - Patient cleared for HBOT today. VS stable. Patient completed full session with no problem. Antoinette Lau CUSTOMER ACCOUNT SPECIALIST 11Aug - Patient cleared for HBOT [...] bit higher on a daily basis. Nicolasa HUTTNON 12Aug - Patient cleared for HBOT today. VS stable. Patient completed full session with no problem. Antoinette Lau CUSTOMER ACCOUNT SPECIALIST 13Aug - Patient cleared for HBOT today. VS stable. Patient completed full session with no problem. Wound care to follow treatment today. Antoinette Lau APRN 14Aug - Patient cleared for HBOT today. VS stable. Patient completed full session with no problem. Antoinette Lau CUSTOMER ACCOUNT SPECIALIST 15Aug - Patient cleared for HBOT [...] attempt to try again on Sunday. Nicolasa CUSTOMER ACCOUNT SPECIALIST 18Aug - Patient cleared for HBOT today. VS stable. Patient completed full session with no problem. Antoinette Lau CUSTOMER ACCOUNT SPECIALIST 19Aug - Patient deemed safe for HBOT today. VS stable. FSBS within range. Patient completed full session with no problem. Antoinette Lau CUSTOMER ACCOUNT SPECIALIST 2015Aug - Patient cleared for HBOT [...] anxiety. Dressing change today per nursing. [facility] [place] - Patient deemed safe [...] andcompleted full session free of problem. [facility] 29[place] - Cleared for HBOT his date and completed full session free of problem. Of note, this patient continues to smoke tobacco cigarettes. [facility] 02Sep - Patient deemed safe [...] 80 and was discharged with 92. [facility] 08Sep - Patient deemed safe for HBOT today. VS stable. Patient completed full session with no problem. Antoinette Judi CUSTOMER ACCOUNT SPECIALIST 10Sep - Patient deemed safe for HBOT today. VS stable. Patient completed full session with no problem. IsraelDeepaliMonicaDeepali Lau CUSTOMER ACCOUNT SPECIALIST 11Sep - Patient cleared for HBOT today. VS stable. Patient completed full session with no problem. Antoinette Sotowood CUSTOMER ACCOUNT SPECIALIST 12Sep - Found safe for HBOT this date. Completed curtailed session free of problem. Session shortened to satisfy demand of ride provider. [facility] [place] - Patient cleared for HBOT today. VS stable. Patient completed full session with no problem. IsraelDeepaliMonicaDeepali Lau APRN 16Sep - Patient cleared for HBOT today. VS stable. Patient completed full session with no problem. IsraelDeepaliMonicaDeepali Lau APRN 17Sep - Patient cleared for HBOT today. VS stable. Patient completed full session with no problem. Antoinette Judi HUTTONN 18Sep - Patient cleared for HBOT today. [...] session with no problem. Antoinette Sotoleyla SILVA Not available 06/18/2025 13:18:28 Reason for Referral None Reported. Problems Name Problem SNOMED Code Status Onset Date Resolution Date Notes Provider Name and Address Organization Details Recorded Time Upper respiratory infection [id number] Active 2024 COLEMAN LAU NP null, [place] - [facility] 12:18:40 Episodic migraine 4262225320248 Active 2024 COLEMAN LAU NP null, [place] [facility] 12:34:01 Type 2 diabetes mellitus 33557874 Active 2024 COLEMAN LAU NP null, [place] [facility] 15:27:12 Refractory migraine with aura 871195898 Active 2024 COLEMAN LAU NP null, [place] [facility] 10:56:52 Recurrent acute frontal sinusitis Active 2024 COLEMAN LAU NP null, [place] [facility] 12:47:05 Candidiasis of vagina 71232019 Active 2024 COLEMAN LAU NP null, [place] [facility] 12:47:26 Acute upper respiratory infection 58142227 Active 2024 COLEMAN LAU NP null, [place] [facility] 12:32:57 Problem Notes None recorded. Procedures Surgical History Date Name Laterality Status Provider Name and Address Organization Details Recorded Time 09/15/20 25 [facility] Therapy Treatment Form completed Carolyn luan [place] - [facility] 09/15/2025 12:48:40 09/14/20 25 [facility] Therapy Treatment Form completed COLEMAN LAU NP [place] - [facility] 09/14/2025 14:54:43 09/07/20 25 [facility] Therapy Treatment Form completed [facility] - [facility] 09/07/2025 12:38:58 08/31/20 25 [facility] Therapy Treatment Form completed [facility] - [facility] 08/31/2025 12:48:46 08/25/20 25 [facility] Therapy Treatment Form completed [facility] - [facility] 08/25/2025 12:52:26 08/24/20 25 [facility] Therapy Treatment Form completed [facility] - [facility] 08/24/2025 12:53:43 08/17/20 25 [facility] Therapy Treatment Form completed [facility] - [facility] 08/17/2025 13:02:48 08/14/20 25 [facility] Therapy Treatment Form completed Lisa Sosa [place] - [facility] 08/14/2025 12:43:08 08/13/20 25 [facility] Therapy Treatment Form completed [facility] - [facility] 08/13/2025 12:27:58 08/12/20 25 [facility] Therapy Treatment Form completed [facility] - [facility] 08/12/2025 12:36:02 08/12/20 25 Wound completed COLEMAN LAU NP [place] - [facility] 08/12/2025 14:15:15 08/11/20 25 [facility] Therapy Treatment Form completed Carolyn roland [place] - [facility] 08/11/2025 12:58:18 08/10/20 25 [facility] Therapy Treatment Form completed Carolyn [facility] [place] [facility] 08/10/2025 12:57:23 08/04/20 25 [facility] Therapy Treatment Form completed COLEMAN LAU NP [place] [facility] 08/04/2025 13:51:50 08/03/20 25 [facility] Therapy Treatment Form completed COLEMAN LAU NP [place] [facility] 08/03/2025 14:17:35 07/30/20 [facility] Therapy Treatment Form completed Carolyn roland [place] - [facility] 07/30/2025 12:38:27 07/29/20 [facility] Therapy Treatment Form completed Carolyn roland [place] - [facility] 07/29/2025 12:40:06 07/28/20 [...] [facility] 07/23/2025 12:41:49 07/22/20 [facility] Therapy Treatment Form completed [facility] [place] - [facility] 07/22/2025 12:53:32 07/21/20 [facility] Therapy Treatment Form completed [facility] [place] [facility] 07/21/2025 12:43:55 07/20/20 25 [facility] Therapy Treatment Form completed [facility] - [facility] 07/20/2025 12:58:21 [...] [facility] 07/15/2025 12:39:29 07/14/20 25 [facility] Therapy Treatment Form completed COLEMAN LAU NP [place] - [facility] 07/14/2025 15:14:39 07/09/20 25 [facility] Therapy Treatment Form completed [facility] - [facility] 07/09/2025 12:46:05 07/08/20 25 [facility] Therapy Treatment Form completed [facility] - [facility] 07/08/2025 12:41:28 07/07/20 25 [facility] Therapy Treatment Form completed Manfred Shelton [place] - [facility] 07/08/2025 08:10:21 07/06/20 25 [facility] Therapy Treatment Form completed [facility] - [facility] 07/06/2025 13:06:29 07/03/20 25 [facility] Therapy Treatment Form completed Paula Licea [place] - [facility] 07/03/2025 12:47:29 07/02/20 25 [facility] Therapy Treatment Form completed Paula Licea [place] - [facility] 07/02/2025 13:06:39 07/01/20 25 [facility] Therapy Treatment Form completed Paula Licea [place] - [facility] 07/01/2025 13:05:37 06/30/20 [...] [facility] 06/24/2025 12:40:20 06/23/20 25 [facility] Therapy Treatment Form completed [facility] - [facility] 06/23/2025 12:39:50 06/22/20 25 [facility] Therapy Treatment Form completed [facility] - [facility] 06/22/2025 12:49:55 06/19/20 25 [facility] Therapy Treatment Form completed Manfred Shelton [place] - [facility] 06/19/2025 14:13:24 06/18/20 [...] [facility] 06/15/2025 12:47:07 06/12/20 25 [facility] Therapy Treatment Form completed Manfred Shelton [place] - [facility] 06/12/2025 14:54:52 06/11/20 25 [facility] Therapy Treatment Form completed [facility] - [facility] 06/11/2025 13:02:39 06/10/20 25 [facility] Therapy Treatment Form completed [facility] - [facility] 06/10/2025 12:50:18 06/08/20 25 [facility] Therapy Treatment Form completed [facility] - [facility] 06/08/2025 12:56:07 06/05/20 25 [facility] Therapy Treatment Form completed Evelia Winters [place] - [facility] 06/05/2025 14:28:16 06/04/20 25 Wound completed COLEMAN LAU NP [place] [facility] 06/04/2025 14:24:29 06/04/20 25 [facility] Therapy Treatment Form completed COLEMAN LAU NP [place] [facility] 06/04/2025 13:56:49 06/03/20 25 [facility] Therapy Treatment Form completed Evelia Winters [place] - [facility] 06/03/2025 14:11:11 06/02/20 25 [facility] Therapy Treatment Form completed [facility] - [facility] 06/02/2025 13:09:37 05/29/20 25 [facility] Therapy Treatment Form completed Carolyn luan [place] - [facility] 05/29/2025 12:25:31 05/28/20 25 [facility] Therapy Treatment Form completed [facility] - [facility] 05/28/2025 13:02:44 05/27/20 25 Wound completed COLEMAN LAU NP [place] [facility] 05/27/2025 13:18:22 05/27/20 25 [facility] Therapy Treatment Form completed [facility] - [facility] 05/27/2025 12:50:01 05/26/20 25 Nurse Note completed Lucianaeran Noriega [place] [facility] 05/26/2025 16:40:42 05/26/20 25 [facility] Therapy Treatment Form completed [facility] - [facility] 05/26/2025 12:27:56 05/25/20 25 [facility] Therapy Treatment Form completed [facility] - [facility] 05/25/2025 13:12:32 05/22/20 25 [facility] Therapy Treatment Form completed [facility] - [facility] 05/22/2025 12:33:28 05/21/20 25 [facility] Therapy Treatment Form completed Carolyn luan [place] - [facility] 05/21/2025 12:47:49 05/20/20 [...] servin, [place] - [facility] 5 14:25:04 1102 Rocephin medicatio n Not available Not available Not available 04/23/2025 9449 RxNorm Luciana servin, [place] - [facility] 14:25:10 1103 Inapsine medicatio n Not available Not available Not available 04/23/2025 93646 3 RxNorm Luciana servin, [place] - [facility] 14:25:27 1104 Avelox medicatio n Not available Not available Not available 04/23/2025 05698 6 RxNorm Luciana servin, [place] - [facility] 14:25:52 1105 metformin medicatio n other Not available low 04/23/20252023 6809 RxNorm GI issue s Luciana servin, [place] - [facility] 5 14:26:11 1253 Product containin g angiotens in-conver ting enzyme inhibitor (product) medicatio n cough moderate Not available 06/26/2025 24616 009 SNOMED Not Available taisha - [employer] - prod 5 10:54:20 1254 metformin hydrochlo ride medicatio n Not available Not available Not available 06/26/2025 75114 3 RxNorm Not Available [employer] - prod 5 10:54:20 1358 ceftriaxo ne medicatio n rash moderate Not available 07/15/2025 2193 RxNorm Not Available [employer] - prod 5 10:18:57 1359 droperido l medicatio n dyspnea Not available Not available 07/15/2025 3648 RxNorm Not Available taisha - [employer] - prod 10:18:57 1360 moxifloxa beck medicatio n rash moderate Not available 07/15/2025 18811 2 RxNorm Not Available taisha - [employer] - prod 10:18:57 1461 moxifloxa beck hydrochlo ride medicatio n Not available Not available Not available 08/24/20252015 59525 0 RxNorm Not Available taisha - External Data Service - [facility] 04:35:37 Medications Name Sig Start [...] /min 16 /min 97.7 [degF] 84 % 74 /min 16 /min 98.2 [degF] 96 % 165/76 mm[Hg] 157/78 mm[Hg] [facility] - [facility] 5 12:54:55 Social History None recorded. Functional Status [...] MD Main Office [address] [place] [address] 05/18/2025 10:59:56 05/18/2025 15:48:37 Type 2 diabetes mellitus [id number] E11.69 [id number] Manfred Shelton MD Main Office [address] [place] [address] 05/19/2025 11:07:27 05/19/2025 14:52:31 [id number] Manfred Shelton MD Main Office [address] [place] [address] 05/20/2025 11:36:16 05/20/2025 13:20:26 5003 Manfred Shelton MD Main Office [address] [place] [address] 05/20/2025 12:28:38 05/20/2025 13:24:07 [id number] Manfred Shelton MD Main Office [address] [place] [address] 05/21/2025 10:14:02 05/22/2025 08:40:53 [id number] Manfred Shelton MD Main Office [address] [place] [address] 05/22/2025 10:05:00 05/22/2025 14:31:52 [id number] COLEMAN LAU NP Main Office [address] [place] [address] 05/25/2025 10:54:17 05/25/2025 14:23:41 5071 COLEMAN LAU, [employer] Main Office [address] [place] [address] 05/26/2025 10:04:52 05/26/2025 13:22:24 5083 COLEMAN LAU, [employer] Main Office [address] [place] [address] 05/26/2025 16:38:48 05/26/2025 16:40:45 5087 COLEMAN LAU, CONTR[employer] Main Office [address] [place] [address] 05/27/2025 10:11:43 05/27/2025 13:22:20 5093 COLEMAN LAU, [employer] Main Office [address] [place] [address] 05/27/2025 13:11:38 05/27/2025 13:19:10 [id number] Manfred Shelton MD Main Office [address] [place] [address] 05/28/2025 10:14:13 05/29/2025 08:47:13 [id number] Manfred Shelton MD Main Office [address] [place] [address] 05/29/2025 10:04:58 05/29/2025 17:43:48 [id number] Manfred Shelton MD Main Office [address] [place] [address] 06/02/2025 10:25:50 06/02/2025 14:14:27 [id number] Manfred Shelton MD Main Office [address] [place] [address] 06/03/2025 10:16:52 06/03/2025 14:45:20 [id number] Manfred Shelton MD Main Office [address] [place] [address] 06/04/2025 10:31:23 06/04/2025 13:58:07 [id number] Manfred Shelton MD Main Office [address] [place] [address] 06/04/2025 14:13:52 06/04/2025 14:25:08 [id number] Manfred Shelton MD Main Office [address] [place] , [place] [address] 06/05/2025 10:55:07 06/05/2025 16:50:44 [id number] Manfred Shelton MD Main Office [address] [place] [address] 06/08/2025 10:25:37 06/08/2025 14:39:12 [id number] Manfred Shelton MD Main Office [address] [place] , [place] [address] 06/10/2025 10:19:13 06/10/2025 13:21:20 [id number] Manfred Shelton MD Main Office [address] [place] [address] 06/11/2025 10:35:04 06/11/2025 14:11:07 [id number] Manfred Shelton MD Main Office [address] [place] [address] 06/12/2025 10:59:45 06/12/2025 14:56:49 [id number] Manfred Shelton MD Main Office [address] [place] [address] 06/15/2025 10:50:33 06/15/2025 13:14:21 [id number] Manfred Shelton MD Main Office [address] [place] [address] 06/16/2025 10:14:56 06/16/2025 13:52:36 [id number] Manfred Shelton MD Main Office [address] [place] [address] 06/17/2025 10:28:52 06/17/2025 13:18:56 [id number] Manfred Shelton MD Main Office [address] [place] [address] 06/18/2025 10:16:09 06/18/2025 13:16:04 Health Concerns Section Related Observation LastModified by Organization Detai ls LastModified Time None Recorded Concern Status LastModified by Organization Details LastModified Time None Recorded Payers Encounter Date Sequence Insurance Name Policy Number Policy Gonzales Covered Member ID Gonzales Member ID Guarantor Name 06/18/2025 2 [employer] Seema Delacruz [id number] Seema Delacruz 06/18/2025 1 [employer] Seema Delacruz [id number] Seema Delacruz OBGyn Episode No OBEpisode recorded.
--- OUTSIDE RECORDS SUMMARY | 2025-09-16 16:41 | XMS_ITS | Continuity of Care Document ---
Author Organization [place] - [facility], Main Office Address [address] [place] [address] Care Team Providers Care Rug Renovator Name Role Phone STEPHY YUSUF Primary Care Provider [phone] Assessment No assessment recorded. Plan of Treatment [...] Modified By Organization Details Last Modified Time 08/04/2025 [id number] BACKGROUND: Seema Delacruz is a 55 y.o. [...] Diagnosis: L97.512, E11.621 Session Notes: Today's Date 04Aug2025 HBOT session 63 of 80 Next HBOT 05Aug2025 30Jul - Patient cleared for 1st HBOT [...] was slightly red, but she was asymptomatic. Nicolaas SILVA 01Aug - Patient deemed safe for [...] for an upper respiratory infection. Nicolasa CLINICAL CYTOPATHOLOGIST 07Aug- Patient cleared for HBOT today. VS stable. PAtient had little trouble reaching pressure today, but had to come out of chamber early due to needing to use restroom. She managed to do 4 segs-118 minutes. Israel.Tanner CLINICAL CYTOPATHOLOGIST 08Aug - Patient cleared for HBOT today. VS stable. Patient completed full session with no problem. Antoinette Lau CLINICAL CYTOPATHOLOGIST 11Aug - Patient cleared for HBOT today. [...] session with no problem. Antoinette Lau CLINICAL CYTOPATHOLOGIST 13Aug - Patient cleared for HBOT today. VS stable. Patient completed full session with no problem. Wound care to follow treatment today. Antoinette Lau APRN 14Aug - Patient cleared for HBOT today. VS stable. Patient completed full session with no problem. Antoinette Lau CLINICAL CYTOPATHOLOGIST 15Aug - Patient cleared for HBOT today. [...] to try again on Sunday. Nicolasa CLINICAL CYTOPATHOLOGIST 18Aug - Patient cleared for HBOT today. VS stable. Patient completed full session with no problem. Antoinette Lau CLINICAL CYTOPATHOLOGIST 19Aug - Patient deemed safe for HBOT [...] Dressing change today per nursing. [facility] Patient deemed safe for HBOT [...] full session free of problem. [facility] 29Aug - Cleared for HBOT his date and completed full session free of problem. Of note, this patient continues to smoke tobacco cigarettes. [facility] 02[place] - Patient deemed safe for HBOT [...] and was discharged with 92. [facility] - Patient deemed safe for HBOT today. VS stable. Patient completed full session with no problem. [place].Jessica Lau APRN 10Sep - Patient deemed safe for HBOT today. VS stable. Patient completed full session with no problem. Antoinette Lau APRN 11Sep - Patient cleared for HBOT today. VS stable. Patient completed full session with no problem. Israel.Jessica Lau CLINICAL CYTOPATHOLOGIST 12Sep - Found safe for HBOT this date. Completed curtailed session free of problem. Session shortened to satisfy demand of ride provider. [facility] - Patient cleared for HBOT today. [...] to proceed to another medical appointment. Estefania AWTERS 22Sep - Patient cleared for HBOT today. [...] full session with no problem. IsraelIlsa Lau CLINICAL CYTOPATHOLOGIST 26Sep - Deemed safe for HBOT on this date and completed the full session uneventfully. [facility] - Patient cleared for HBOT today. VS stable. Patient completed 3 Seg session with no problem. M.ADeepali Lau CLINICAL CYTOPATHOLOGIST 30Sep - Patient cleared for HBOT today. VS stable. Patient completed full session with no problem. M.Jessica Lau CLINICAL CYTOPATHOLOGIST 01Oct - Patient cleared for HBOT today. VS stable. Patient completed full session with no problem. M.Jessica Lau CLINICAL CYTOPATHOLOGIST 02Oct - Cleared for HBOT this date and completed full session free of problem. [facility] 03Oct - Deemed safe for HBOT today and completed her full session without problem. [facility] 06Oct - Found safe for HBOT this date and tolerated her session free of problem. [facility] 07Oct- Cleared for HBOT this date and completed the full session without problem. [facility] 08Oct - Glu on arrival marginal so given caloric intake first and then cleared for HBOT this day. Had no problem completing full session emerging at Glu 139. [facility] 09Oct - Deemed safe for HBOT today and completed full session without problem. [facility] 14Oct - Patient returns after being out ill. Cleared for HBOT today. VS stable. Patient completed full session with no problem. Israel.Jessica Lau CLINICAL CYTOPATHOLOGIST 15Oct - Patient cleared for HBOT today. VS stable. Patient completed full session with no problem. M.Jessica Lau CLINICAL CYTOPATHOLOGIST 16Oct - Patient cleared for HBOT today. VS stable. Patient completed full session with no problem. M.Jessica Lau CLINICAL CYTOPATHOLOGIST 17Oct - Patient cleared for HBOT today. VS stable. Patient completed full session with no problem. Israel.Jessica Lau CLINICAL CYTOPATHOLOGIST 20Oct - Patient an hour late today due to transportation company. She can only do an hour, or she will not have a ride back home. Cleared for HBOT, VS stable. Finished 1 hour session with no issues or complaints. M.Tanner CLINICAL CYTOPATHOLOGIST 21Oct - Patient cleared for HBOT today. VS stable. Patient completed full session with no problem. M.ADeepali Lau CLINICAL CYTOPATHOLOGIST 22Oct - Patient cleared for HBOT today. VS stable. Patient completed full session with no problem. M.Jessica Lau CLINICAL CYTOPATHOLOGIST 23Oct - Patient cleared for HBOT today. VS stable. Patient completed full session with no problem. Antoinette Lau APRN 24Oct - Deemed safe for HBOT this date and did complete full session without problem. [facility] 27Oct - Patient cleared for HBOT today. [...] full session free of problem. [facility] 31Oct - See E&M visit note 03Nov [...] reach 2.0 SANTY today with no issues. MIlsa Lau CLINICAL CYTOPATHOLOGIST Not available 08/04/2025 13:52:31 Reason for Referral None Reported. Results Created [...] Organization Details Recorded Time Upper respiratory infection 26004772 Active 2024 COLEMAN LAU NP null, [place] - [facility] 12:18:40 Episodic migraine [id number] Active 2024 COLEMAN LAU NP null, [place] - [facility] 12:34:01 Type 2 diabetes mellitus 24776257 Active 2024 COLEMAN LAU NP null, [place] [facility] 15:27:12 Refractory migraine with aura 803070001 Active 2024 COLEMAN LAU NP null, [place] [facility] 10:56:52 Recurrent acute frontal sinusitis Active 2024 COLEMAN LAU NP null, [place] [facility] 12:47:05 Candidiasis of vagina 57219429 Active 2024 COLEMAN LAU NP null, [place] - [facility] 12:47:26 Acute upper respiratory infection 40301584 Active 2024 COLEMAN LAU NP null, [place] [...] Carolyn luan [place] - [facility] 08/31/2025 12:48:46 08/25/20 25 [facility] Therapy Treatment Form completed [facility] - [facility] 08/25/2025 12:52:26 08/24/20 25 [facility] Therapy Treatment Form completed [facility] - [facility] 08/24/2025 12:53:43 08/17/20 25 [facility] Therapy Treatment Form completed Carolyn [facility] - [facility] 08/17/2025 13:02:48 08/14/20 25 [facility] Therapy Treatment Form completed Lisa Sosa [place] - [facility] 08/14/2025 12:43:08 08/13/20 25 [facility] Therapy Treatment Form completed [facility] - [facility] 08/13/2025 12:27:58 08/12/20 25 [facility] Therapy Treatment Form completed Carolyn luan [place] - [facility] 08/12/2025 12:36:02 08/12/20 25 Wound completed COLEMAN LAU NP [place] - [facility] 08/12/2025 14:15:15 08/11/20 25 [facility] Therapy Treatment Form completed Carolyn luan [place] - [facility] 08/11/2025 12:58:18 08/10/20 25 [facility] Therapy Treatment Form completed Carolyn luan [place] - [facility] 08/10/2025 12:57:23 08/04/20 25 [facility] Therapy Treatment Form completed ABDOULAYE HAQ - [facility] 08/04/2025 13:51:50 08/03/20 25 [facility] Therapy Treatment Form completed ABDOULAYE HAQ - [facility] 08/03/2025 14:17:35 07/30/20 25 [facility] Therapy Treatment Form completed Carolyn luan [place] - [facility] 07/30/2025 12:38:27 07/29/20 25 [facility] Therapy Treatment Form completed Carolyn luan [place] - [facility] 07/29/2025 12:40:06 07/28/20 25 [facility] Therapy Treatment Form completed ABDOULAYE HAQ - [facility] 07/28/2025 13:56:37 07/27/20 25 [facility] Therapy Treatment Form completed COLEMAN JASBIR, [employer] [place] - [facility] 07/27/2025 13:59:51 07/24/20 [facility] Therapy Treatment Form completed Manfred Shelton MD [place] - [facility] 07/24/2025 17:57:20 07/23/20 [facility] Therapy Treatment Form completed [facility] - [facility] 07/23/2025 12:41:49 07/22/20 [facility] Therapy Treatment Form completed [facility] - [facility] 07/22/2025 12:53:32 07/21/20 [facility] Therapy Treatment Form completed [facility] - [facility] 07/21/2025 12:43:55 07/20/20 [facility] Therapy Treatment Form completed [facility] - [facility] 07/20/2025 12:58:21 07/17/20 [facility] Therapy Treatment Form completed Lisa Sosa [place] - [facility] 07/17/2025 12:35:46 07/16/20 [facility] Therapy Treatment Form completed Frank Gage [place] - [facility] 07/16/2025 16:54:47 07/15/20 25 Wound completed COLEMAN LAU NP [place] [facility] 07/15/2025 14:47:28 07/15/20 [facility] Therapy Treatment Form completed [facility] - [facility] 07/15/2025 12:39:29 07/14/20 [facility] Therapy Treatment Form completed COLEMAN LAU NP [place] [facility] 07/14/2025 15:14:39 07/09/20 25 [facility] Therapy Treatment Form completed [facility] - [facility] 07/09/2025 12:46:05 07/08/20 25 [facility] Therapy Treatment Form completed [facility] - [facility] 07/08/2025 12:41:28 07/07/20 25 [facility] Therapy Treatment Form completed Manfred Shelton [place] [facility] 07/08/2025 08:10:21 07/06/20 25 [facility] Therapy Treatment Form completed [facility] - [facility] 07/06/2025 13:06:29 07/03/20 25 [facility] Therapy Treatment Form completed Paula Licea [place] [facility] 07/03/2025 12:47:29 07/02/20 25 [facility] Therapy Treatment Form completed Paula Tadeoe [place] - [facility] 07/02/2025 13:06:39 07/01/20 25 [facility] Therapy Treatment Form completed Paula BERNAL - [facility] 07/01/2025 13:05:37 06/30/20 25 [facility] Therapy Treatment Form completed COLEMAN LAU NP [place] - [facility] 06/30/2025 13:46:12 06/29/20 25 [facility] Therapy Treatment Form completed [facility] - [facility] 06/29/2025 13:24:58 06/26/20 25 [facility] Therapy Treatment Form completed Manfred Shelton MD [place] - [facility] 06/26/2025 16:57:55 06/25/20 25 [facility] Therapy Treatment Form completed [facility] - [facility] 06/25/2025 12:47:07 06/24/20 25 [facility] Therapy Treatment Form completed [facility] - [facility] 06/24/2025 12:40:20 06/23/20 25 [facility] Therapy Treatment Form completed [facility] - [facility] 06/23/2025 12:39:50 06/22/20 25 [facility] Therapy Treatment Form completed [facility] - [facility] 06/22/2025 12:49:55 06/19/20 25 [facility] Therapy Treatment Form completed Manfred Shelton MD [place] - [facility] 06/19/2025 14:13:24 06/18/20 25 [facility] Therapy Treatment Form completed COLEMAN LAU NP [place] - [facility] 06/18/2025 13:17:34 06/17/20 25 [facility] Therapy Treatment Form completed [facility] - [facility] 06/17/2025 12:29:15 06/16/20 25 [facility] Therapy Treatment Form completed [facility] - [facility] 06/16/2025 12:45:53 06/15/20 25 [facility] Therapy Treatment Form completed [facility] - [facility] 06/15/2025 12:47:07 06/12/20 25 [facility] Therapy Treatment Form completed Manfred Shelton MD [place] - [facility] 06/12/2025 14:54:52 06/11/20 25 [facility] Therapy Treatment Form completed [facility] - [facility] 06/11/2025 13:02:39 06/10/20 25 [facility] Therapy Treatment Form completed [facility] - [facility] 06/10/2025 12:50:18 06/08/20 25 [facility] Therapy Treatment Form completed [facility] - [facility] 06/08/2025 12:56:07 [...] [facility] Therapy Treatment Form completed [facility] - [facility] 06/02/2025 13:09:37 05/29/20 25 [facility] Therapy Treatment Form completed [facility] - [facility] 05/29/2025 12:25:31 05/28/20 25 [facility] Therapy Treatment Form completed [facility] - [facility] 05/28/2025 13:02:44 05/27/20 25 Wound completed COLEMAN LAU NP [place] - [facility] 05/27/2025 13:18:22 05/27/20 25 [facility] Therapy Treatment Form completed [facility] - [facility] 05/27/2025 12:50:01 05/26/20 25 Nurse Note completed Luciana Noriega [place] [facility] 05/26/2025 16:40:42 05/26/20 25 [facility] Therapy Treatment Form completed [facility] - [facility] 05/26/2025 12:27:56 05/25/20 25 [facility] Therapy Treatment Form completed [facility] - [facility] 05/25/2025 13:12:32 05/22/20 25 [facility] Therapy Treatment Form completed [facility] - [facility] 05/22/2025 12:33:28 [...] Oxygen Care Therapy Treatment Form completed COLEMAN ABDOULAYE LAU [place] [facility] 04/30/2025 14:18:39 [...] Not available Not available Not available 04/23/2025 40784 3 RxNorm Luciana servin, [place] - [facility] 14:25:27 1104 Avelox medicatio n Not available Not available Not available 04/23/2025 01907 6 RxNorm Luciana servin, [place] - [facility] 14:25:52 1105 metformin medicatio n other Not available low 04/23/20252023 6809 RxNorm GI issue s Luciana Hari null, [place] - [facility] 5 14:26:11 1253 Product containin g angiotens in-conver ting enzyme inhibitor (product) medicatio n cough moderate Not available 06/26/2025 79738 009 SNOMED Not Available taishaAndroid App Review Source Data Service - prod 5 10:54:20 1254 metformin hydrochlo ride medicatio n Not available Not available Not available 06/26/2025 45835 3 RxNorm Not Available taisha - External Data Service - prod 10:54:20 1358 ceftriaxo ne medicatio n rash moderate Not available 07/15/2025 2193 RxNorm Not Available [employer] App Review Source Data Service - prod 5 10:18:57 1359 droperido l medicatio n dyspnea Not available Not available 07/15/2025 3648 RxNorm Not Available [employer] App Review Source Data Service - prod 5 10:18:57 1360 moxifloxa beck medicatio n rash moderate Not available 07/15/2025 61712 2 RxNorm Not Available [employer] App Review Source Data Service - prod 10:18:57 1461 moxifloxa beck hydrochlo ride medicatio n Not available Not available Not available 08/24/20252015 12100 0 RxNorm Not Available [employer]ishaAndroid App Review Source Data Service - prod 5 04:35:37 Medications [...] Updated DateTime 5 73 /min 16 /min 99 [degF] 90 % 63 /min 16 /min 98.2 [degF] 94 % 149/70 mm[Hg] 117/59 mm[Hg] [facility] - [facility] 5 12:39:31 Social History None recorded. Functional Status None [...] ICD10 Code Diagnosis IMO Codes Diagnosis Note [id number] Manfred Shelton MD Main Office [address] [place] [address] 07/06/2025 10:54:52 07/06/2025 14:37:01 [id number] Manfred Shelton MD Main Office [address] [place] [address] 07/07/2025 10:14:11 07/08/2025 08:12:24 [id number] Manfred Shelton MD Main Office [address] [place] [address] 07/08/2025 10:22:23 07/08/2025 19:57:51 [id number] Manfred Shelton MD Main Office [address] [place] [address] 07/09/2025 10:23:51 07/09/2025 16:04:46 [id number] Manfred Shelton MD Main Office [address] [place] [address] 07/14/2025 10:06:05 07/14/2025 15:15:47 [id number] Manfred Shelton MD Main Office [address] [place] [address] 07/15/2025 10:17:40 07/15/2025 13:26:46 [id number] Manfred Shelton MD Main Office [address] [place] [address] 07/15/2025 14:45:53 07/15/2025 14:48:12 [id number] Manfred Shelton MD Main Office [address] [place] [address] 07/16/2025 10:18:19 07/16/2025 14:20:47 [id number] Manfred Shetlon MD Main Office [address] [place] [address] 07/17/2025 10:06:47 07/17/2025 14:10:36 Refractory migraine with aura [id number] G43.483 [id number] Manfred Shelton MD Main Office [address] [place] [address] 07/20/2025 11:09:11 07/20/2025 14:45:37 [id number] Manfred Shelton MD Main Office [address] [place] [address] 07/21/2025 10:11:12 07/21/2025 12:49:36 [id number] Manfred Shelton MD Main Office [address] [place] [address] 07/22/2025 10:10:07 07/22/2025 13:11:46 [id number] Manfred Shelton MD Main Office [address] [place] [address] 07/23/2025 10:48:45 07/23/2025 15:03:21 [id number] Manfred Shelton MD Main Office [address] [place] [address] 07/24/2025 10:18:12 07/24/2025 17:58:24 [id number] Manfred Shelton MD Main Office [address] [place] [address] 07/27/2025 10:15:44 07/27/2025 14:05:56 [id number] Manfred Shelton MD Main Office [address] [place] [address] 07/28/2025 10:36:12 07/28/2025 13:58:27 [id number] Manfred Shelton MD Main Office [address] [place] [address] 07/29/2025 10:14:56 07/29/2025 13:38:02 [id number] Manfred Shelton MD Main Office [address] [place] [address] 07/30/2025 10:32:11 07/31/2025 08:45:48 [id number] Manfred Shelton MD Main Office [address] [place] [address] 08/01/2025 08:56:19 08/01/2025 09:05:22 [id number] Manfred Shelton MD Main Office [address] [place] [address] 08/03/2025 10:12:43 08/03/2025 14:18:16 [id number] Manfred Shelton MD Main Office [address] [place] [address] 08/04/2025 10:18:33 08/04/2025 13:52:38 Health Concerns Section Related Observation LastModified by Organization Detai ls LastModified Time None Recorded Concern Status LastModified by Organization Details LastModified Time None Recorded Payers Encounter Date Sequence Insurance Name Policy Number Policy Gonzales Covered Member ID Gonzales Member ID Guarantor Name 08/04/2025 2 [employer] Seema Delacruz [id number] Seema Delacruz 08/04/2025 1 [employer] Seema Delacruz [id number] Seema Delacruz OBGyn Episode No OBEpisode recorded.
--- OUTSIDE RECORDS SUMMARY | 2025-09-16 16:41 | XMS_ITS | Referral Summary ---
Author Organization [facility] ([place], [place], [place], [place], [place]) Address [address] [place] [id number] Care Team Providers Care Physical Aerodynamicist Name Role Phone Unavailable Primary Care Provider [...]
--- OUTSIDE RECORDS SUMMARY | 2025-09-16 16:41 | XMS_ITS | Continuity of Care Document ---
Author Organization [place] [facility], Main Office Address [address] [place] [address] Care Team Providers Care Cloak Room Attendant Name Role Phone STEPHY YUSUF Primary Care [...] Modified By Organization Details Last Modified Time 09/07/2025 [id number] BACKGROUND: Seema Delacruz is a 55 y.o. [...] Diagnosis: L97.512, E11.621 Session Notes: Today's Date [id number] HBOT session 73 of 80 Next HBOT [id number] 30Jul - Patient cleared for 1st HBOT [...] full session with no problem. Antoinette Lau [employer]ZENGE DOUGH MIXER 04Aug - Patient deemed safe for HBOT [...] antibiotics for an upper respiratory infection. Nicolasa LOZENGE DOUGH MIXER 07Aug- Patient cleared for HBOT today. VS stable. PAtient had little trouble reaching pressure today, but had to come out of chamber early due to needing to use restroom. She managed to do 4 segs-118 minutes. [place].Tanner LOZENGE DOUGH MIXER 08Aug - Patient cleared for HBOT today. VS stable. Patient completed full session with no problem. Antoinette Lau LOZENGE DOUGH MIXER 11Aug - Patient cleared for HBOT today. [...] full session with no problem. Antoinette Lau LOZENGE DOUGH MIXER 13Aug - Patient cleared for HBOT today. VS stable. Patient completed full session with no problem. Wound care to follow treatment today. Antoinette Lau APRN 14Aug - Patient cleared for HBOT today. VS stable. Patient completed full session with no problem. Antoinette Lau LOZENGE DOUGH MIXER 15Aug - Patient cleared for HBOT today. [...] attempt to try again on Sunday. Nicolasa LOZENGE DOUGH MIXER 18Aug - Patient cleared for HBOT today. VS stable. Patient completed full session with no problem. Antoinette Lau LOZENGE DOUGH MIXER 19Aug - Patient deemed safe for HBOT today. VS stable. FSBS within range. Patient completed full session with no problem. Antoinette Lau LOZENGE DOUGH MIXER 2015Aug - Patient cleared for HBOT today. [...] was to proceed to another medical appointment. [facility] [place] - Patient cleared [...] full session with no problem. MIlsa Lau LOZENGE DOUGH MIXER 26Sep - Deemed safe for HBOT on this date and completed the full session uneventfully. [facility] 29Sep - Patient cleared for HBOT today. VS stable. Patient completed 3 Seg session with no problem. M.Jessica Lau LOZENGE DOUGH MIXER 30Sep - Patient cleared for HBOT today. VS stable. Patient completed full session with no problem. M.Jessica aLu [employer]ZENGE DOUGH MIXER 01Oct - Patient cleared for HBOT today. VS stable. Patient completed full session with no problem. M.Jessica Lau LOZENGE DOUGH MIXER 02Oct - Cleared for HBOT this date and completed full session free of problem. [facility] 03Oct - Deemed safe for HBOT today and completed her full session without problem. [facility] 06Oct - Found safe for HBOT this date and tolerated her session free of problem. [facility] 07Oct- Cleared for HBOT this date and completed the full session without problem. [facility] 08Oct - Glu on arrival marginal so given caloric intake first and then cleared for HBOT this day. Had no problem completing full session emerging at Glu 139. [facility] 09Oct - Deemed safe for HBOT today and completed full session without problem. [facility] 14Oct - Patient returns after being out ill. Cleared for HBOT today. VS stable. Patient completed full session with no problem. Antoinette Lau LOZENGE DOUGH MIXER 15Oct - Patient cleared for HBOT today. VS stable. Patient completed full session with no problem. M.Jessica Lau LOZENGE DOUGH MIXER 16Oct - Patient cleared for HBOT today. VS stable. Patient completed full session with no problem. M.Jessica Lau LOZENGE DOUGH MIXER 17Oct - Patient cleared for HBOT today. VS stable. Patient completed full session with no problem. [place].Jessica Lau LOZENGE DOUGH MIXER 20Oct - Patient an hour late today due to transportation company. She can only do an hour, or she will not have a ride back home. Cleared for HBOT, VS stable. Finished 1 hour session with no issues or complaints. M.Tanner LOZENGE DOUGH MIXER 21Oct - Patient cleared for HBOT today. VS stable. Patient completed full session with no problem. M.Jessica Lau LOZENGE DOUGH MIXER 22Oct - Patient cleared for HBOT today. VS stable. Patient completed full session with no problem. Antoinette Lau APRN 23Oct - Patient cleared for HBOT today. VS stable. Patient completed full session with no problem. Antoinette Lau APRN 24Oct - Deemed safe for HBOT this date and did complete full session without problem. [facility] 27Oct - Patient cleared [...] SANTY today with no issues. M.Jessica SotoJudi LOZENGE DOUGH MIXER 05-07Nov - patient out ill - STEARNS 10Nov - Patient deemed safe for HBOT today. VS stable. Patient completed full session with no issues or problem. [place].Monica. Judi LOZENGE DOUGH MIXER 11Nov - Patient cleared for HBOT today. VS stable. Patient completed full session with no problem. [place].Monica. Ben [place]on LOZENGE DOUGH MIXER 12Nov - Patient deemed safe for HBOT today. VS stable. Patient able to complete full session with no issues or problems. Wound care done after treatment today. [place].Monica. Judi LOZENGE DOUGH MIXER 13Nov - Patient cleared for HBOT today. VS stable. Patient able to complete full session with no issues or problems. [place].Monica. Judi LOZENGE DOUGH MIXER 14Nov - Deemed safe for HBOT today and completed full session uneventfully. Additional care: [id number] for DX L97.512 and Ell.621 - Following [...] nor deeper tissue infection. Patient states her revenue officer, Dr Ortiz, has already ordered MRI but [...] session with no issues or problems. [place].MonicaDeepali [place] LOZENGE DOUGH MIXER 18-21Nov - patient out ill - STEARNS 24Nov - Patient deemed safe for HBOT today. VS stable. Patient able to complete full session with no problems or issues. Antoinette Lau LOZENGE DOUGH MIXER 25Nov - Patient cleared for HBOT today. VS stable. Patient able to complete full session with no issues or problems. Antoinette Lau LOZENGE DOUGH MIXER 01Dec - Patient deemed safe for HBOT today. VS stable. Patient able to complete full session with no problems or issues. Antoinette Lau LOZENGE DOUGH MIXER 02-07Dec - Patient out due to illness - STEARNS 08Dec - Patient cleared for HBOT today. VS stable. Patient able to complete full session with no issues. Antoinette Lau LOZENGE DOUGH MIXER Not available 09/07/2025 14:13:41 Reason for Referral None Reported. Problems Name Problem SNOMED Code Status Onset Date Resolution Date Notes Provider Name and Address Organization Details Recorded Time Upper respiratory infection 67371746 Active 2024 COLEMAN LAU [employer] SUPERVISOR null, [place] - [facility] 12:18:40 Episodic migraine 5065326804867 Active 2024 COLEMAN LAU [employer] SUPERVISOR null, [place] [facility] 12:34:01 Type 2 diabetes mellitus 88939781 Active 2024 COLEMAN LAU [employer] SUPERVISOR null, [place] [facility] 15:27:12 Refractory migraine with aura 010963805 Active 2024 COLEMAN LAU [employer] SUPERVISOR null, [place] [facility] 10:56:52 Recurrent acute frontal sinusitis Active 2024 COLEMAN LAU [employer] SUPERVISOR null, [place] - [facility] 12:47:05 Candidiasis of vagina 91719984 Active 2024 COLEMAN LAU [employer] SUPERVISOR null, [place] [facility] 12:47:26 Acute upper respiratory infection 78762263 Active 2024 COLEMAN LAU [employer] SUPERVISOR null, [place] [facility] 12:32:57 [...] Oxygen Care Therapy Treatment Form completed Carolyn [facility] - [facility] 09/07/2025 12:38:58 [...] Care Therapy Treatment Form completed Lisa Sosa [place] - [facility] 08/14/2025 12:43:08 08/13/20 [...] Care Therapy Treatment Form completed Carolyn luan [place] - [facility] 07/30/2025 12:38:27 07/29/20 25 [facility] Therapy Treatment Form completed Carolyn luan [place] - [facility] 07/29/2025 12:40:06 07/28/20 [...] completed [facility] - [facility] 07/15/2025 12:39:29 07/14/20 25 [facility] Therapy Treatment Form completed COLEMAN LAU NP [place] - [facility] 07/14/2025 15:14:39 07/09/20 25 [facility] Therapy Treatment Form completed [facility] - [facility] 07/09/2025 12:46:05 07/08/20 25 [facility] Therapy Treatment Form completed [facility] - [facility] 07/08/2025 12:41:28 07/07/20 25 [facility] Therapy Treatment Form completed Manfred Shelton MD [place] - [facility] 07/08/2025 08:10:21 07/06/20 25 [facility] Therapy Treatment Form completed Carolyn roland [place] - [facility] 07/06/2025 13:06:29 07/03/20 25 [facility] Therapy Treatment Form completed Paula Licea [place] - [facility] 07/03/2025 12:47:29 07/02/20 25 [facility] Therapy Treatment Form completed Paula Licea [place] - [facility] 07/02/2025 13:06:39 07/01/20 25 [facility] Therapy Treatment Form completed Paula Licea [place] - [facility] 07/01/2025 13:05:37 06/30/20 25 [facility] Therapy Treatment Form completed COLEMAN LAU NP [place] - [facility] 06/30/2025 13:46:12 06/29/20 25 [facility] Therapy Treatment Form completed Carolyn roland [place] - [facility] 06/29/2025 13:24:58 06/26/20 25 [facility] Therapy Treatment Form completed Manfred Shelton [place] - [facility] 06/26/2025 16:57:55 06/25/20 25 [facility] Therapy Treatment Form completed Carolyn luan [place] - [facility] 06/25/2025 12:47:07 06/24/20 25 [facility] Therapy Treatment Form completed Carolyn luan [place] [facility] 06/24/2025 12:40:20 06/23/20 25 [facility] Therapy Treatment Form completed [facility] - [facility] 06/23/2025 12:39:50 06/22/20 25 [facility] Therapy Treatment Form completed [facility] - [facility] 06/22/2025 12:49:55 06/19/20 25 [facility] Therapy Treatment Form completed Manfred Shelton [place] [facility] 06/19/2025 14:13:24 06/18/20 25 [facility] Therapy Treatment Form completed COLEMAN LAU [place] - [facility] 06/18/2025 13:17:34 06/17/20 [...] Care Therapy Treatment Form completed Evelia Winters [place] - [facility] 06/05/2025 14:28:16 06/04/20 25 Wound completed COLEMAN LAU NP [place] - [facility] 06/04/2025 14:24:29 06/04/20 25 [facility] Therapy Treatment Form completed COLEMAN LAU NP [place] [facility] 06/04/2025 13:56:49 06/03/20 25 [facility] Therapy Treatment Form completed Evelia Winters [place] [facility] 06/03/2025 14:11:11 06/02/20 25 [facility] Therapy Treatment Form completed [facility] - [facility] 06/02/2025 13:09:37 05/29/20 25 [facility] Therapy Treatment Form completed [facility] 05/29/2025 12:25:31 05/28/20 25 [facility] Therapy Treatment Form completed [facility] 05/28/2025 13:02:44 05/27/20 25 Wound completed COLEMAN LAU NP [place] [facility] 05/27/2025 13:18:22 05/27/20 25 [facility] Therapy Treatment Form completed [facility] 05/27/2025 12:50:01 05/26/20 25 Nurse Note completed Luciana Noriega [place] [facility] 05/26/2025 16:40:42 05/26/20 25 [facility] Therapy Treatment Form completed [facility] - [facility] 05/26/2025 12:27:56 [...] 05/11/2025 14:12:30 05/08/20 25 Wound completed COLEMAN LUA NP [place] - [facility] 05/08/2025 14:12:38 05/08/20 25 [facility] Therapy Treatment Form completed Mary Riveroer [place] - [facility] 05/08/2025 13:37:30 05/07/20 25 [facility] Therapy Treatment Form completed Mary Miranda [place] - [facility] 05/07/2025 13:01:51 05/06/20 25 Wound completed COLEMAN ABDOULAYE LAU [place] - [facility] 05/07/2025 08:29:18 [...] Not available Not available Not available 04/23/2025 84132 3 RxNorm Luciana servin, [place] - [facility] 07/24/202 5 14:25:27 1104 Avelox medicatio n Not available Not available Not available 04/23/2025 42223 6 RxNorm Luciana servin, [place] - [facility] 5 14:25:52 1105 metformin medicatio n other Not available low 04/23/20252023 6809 RxNorm GI issue s Luciana servin, [place] - [facility] 5 14:26:11 1253 Product containin g angiotens in-conver ting enzyme inhibitor (product) medicatio n cough moderate Not available 06/26/2025 10706 009 SNOMED Not Available [employer] - prod 5 10:54:20 1254 metformin hydrochlo ride medicatio n Not available Not available Not available 06/26/2025 99137 3 RxNorm Not Available [employer] - prod 5 10:54:20 1358 ceftriaxo ne medicatio n rash moderate Not available 07/15/2025 2193 RxNorm Not Available taisha - External Data Service - prod 5 10:18:57 1359 droperido l medicatio n dyspnea Not available Not available 07/15/2025 3648 RxNorm Not Available [employer] - prod 5 10:18:57 1360 moxifloxa beck medicatio n rash moderate Not available 07/15/2025 29477 2 RxNorm Not Available [employer] - prod 5 10:18:57 1461 moxifloxa beck hydrochlo ride medicatio n Not available Not available Not available 08/24/20252015 25254 0 RxNorm Not Available [employer] - prod 5 04:35:37 Medications [...] [degF] 90 % 156/74 mm[Hg] 155/85 mm[Hg] [facility] 5 12:39:14 Social History None recorded. Functional Status None [...] ICD10 Code Diagnosis IMO Codes Diagnosis Note [id number] Manfred Shelton MD Main Office [address] [place] [address] 08/10/2025 10:19:50 08/10/2025 13:54:24 [id number] Manfred Shelton MD Main Office [address] [place] [id number] 08/11/2025 10:13:33 08/11/2025 14:13:40 [id number] Manfred Shelton MD Main Office [address] [place] [id number] 08/12/2025 10:17:32 08/12/2025 14:16:09 [id number] Manfred Shelton MD Main Office [address] [place] [id number] 08/13/2025 09:43:21 08/13/2025 15:50:31 [id number] Manfred Shelton MD Main Office [address] [place] [id number] 08/14/2025 10:42:31 08/14/2025 19:25:25 [id number] Manfred Shelton MD Main Office [address] [place] [id number] 08/17/2025 10:11:40 08/17/2025 13:45:10 [id number] Manfred Shelton MD Main Office [address] [place] [id number] 08/24/2025 10:23:30 08/24/2025 13:10:50 [id number] Manfred Shelton MD Main Office [address] [place] [address] 08/25/2025 10:36:28 08/25/2025 13:49:08 [id number] Manfred Shelton MD Main Office [address] [place] [id number] 08/31/2025 10:01:37 08/31/2025 13:53:53 [id number] Manfred Shelton MD Main Office [address] [place] [id number] 09/07/2025 10:18:13 09/07/2025 14:13:47 Health Concerns Section Related Observation LastModified by Organization Detai ls LastModified Time None Recorded Concern Status LastModified by Organization Details LastModified Time None Recorded Payers Encounter Date Sequence Insurance Name Policy Number Policy Gonzales Covered Member ID Gonzales Member ID Guarantor Name 09/07/2025 2 [facility] Se[facility] Delacruz [id number] Seema Delacruz 09/07/2025 1 [employer] Seema Delacruz [id number] Seema Delacruz OBGyn Episode No OBEpisode recorded.
== END 2025-09-16 23:59 | disposition home or self-care (01) ==
LOC: RT 15:17
PROVIDERS: PCP Nurse Practitioner; Visit Provider Nurse Practitioner
DX: Z01.810 Encounter for preprocedural cardiovascular examination (principal); I10 Essential (primary) hypertension; I49.8 Other specified cardiac arrhythmias; Z82.49 Family history of ischemic heart disease and other diseases of the circulatory system; R94.31 Abnormal electrocardiogram [ECG] [EKG]
CPT/HCPCS: 93270

== ENCOUNTER 2025-09-22 10:35 | Outpatient (CLI) | payer MEDICARE, OTHER, SELFPAY ==
[2025-09-22] VITALS (7 sets, daily range): BP systolic 122–150; BP diastolic 58–77; PULSE 67–80; RESP 16–18; TEMP 36.6; O2SAT 95–98; BMI 42.4
--- OUTSIDE RECORDS SUMMARY | 2025-09-22 10:38 | XMS_ITS | Referral Summary ---
Author Organization [facility] ([place], [place], [place], [place], [place]) Address [address] [place] [id number] Care Team Providers Care Fuel Cell Battery Technician Name Role Phone Unavailable Primary Care Provider [...]
--- OUTSIDE RECORDS SUMMARY | 2025-09-22 10:38 | XMS_ITS | Clinical Summary ---
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
--- OUTSIDE RECORDS SUMMARY | 2025-09-22 10:38 | XMS_ITS | Clinical Summary ---
Author Organization Healthcare Address [address] [place] [address] Care Team Providers Care Ingredient Mixer Name Role Phone Faustino Amador MD Primary Care Provider + [phone] Allergies Active Allergy Reactions Criticality Noted Date [...] day. 10/10/19 Active Lancets (OneTouch Delica Plus [id number]) [facility]/11/20 Active Easy Comfort Pen [place] 31G X 5 MM [facility] 12/11/19 Active HumuLIN 70/30 KWIKPEN (70-30) 100 UNIT/ML injection 60 Units 2 (two) times a day before meals. 09/06/20 Active OneTouch Verio test strip 07/11/20 Active gabapentin (Neurontin) 400 MG capsule Take 1 capsule (400 mg) by mouth 4 (four) times a day. 11/21/19 Active cyclobenzaprine (Fexmid) 7.5 MG tablet every night. 10/28/19 Active Continuous Blood Gluc Sensor (FreeStyle Joelle 14 Day Sensor) [facility] 11/14/19 Active diclofenac (Voltaren) 75 MG EC [...] directed 10/29/19 24 Active ergocalciferol 1.25 MG (96382 UT) capsule Take 1 capsule every week by oral route for 90 days. 10/29/19 24 Active methocarbamol (Robaxin) 500 MG tablet 10/29/19 24 Active ondansetron ODT (Zofran-ODT) [address] 1 tablet every 4-6 hours by translingual route as needed. Active therapeutic multivitamin-film examiner als (Theragran-M) tablet Take 1 tablet [...] (12/16/2021): Added automatically from request for surgery [id number] Microalbuminuria 03/12/2020 Cervical radiculopathy 11/22/2018 Neck pain [...] (05/24/2022): Added automatically from request for surgery [id number] Family History Medical History Relation Name Comments [...] drink first t debra in the morning (EYE-RELATIONS MGR) to steady your nerves or to get [...] Due Date Last Done Comments [facility]-Diabetes: Hemoglobin A1C 1969 [facility]-HIV Screening 1970 [facility]-Hepatitis [...] of 2) 2019 [facility]-Depression Screening 11/12/2024 11/12/2023 [id number] Vaccine (3 - season) 2025 04/07/2021, 03/17/2021 [...] this topic Medical Devices Implanted Type Area Inspection Engineer Device Identifier Shelf Expiration Date Model / Serial / Lot Pain Pump Pain Pump Right: Back Insurance [employer] MEDICAID [employer] MEDICARE [employer] MEDICARE Advance Directives * Full Code (Latest Code Status on File) Date Activated Date Inactivated Comments 05/24/2022 4:10 PM 05/26/2022 3:36 PM Question Answer Comments Patient has decision-making capacity? Yes Care Teams Ingredient Mixer Relationship Specialty Start Date End Date Faustino Amador MD [address] [place] [address] PCP - General 03/14/21
--- OUTSIDE RECORDS SUMMARY | 2025-09-22 10:38 | XMS_ITS | Clinical Summary ---
Author Organization [facility] ([place], [place], [place], [place], [place]) Address [address] [place] [address] Care Team Providers Care Dials Supervisor Name Role Phone Unavailable Primary Care Provider [...]
--- OUTSIDE RECORDS SUMMARY | 2025-09-22 10:38 | XMS_ITS | Data Portability ---
Author Organization [facility] Address [address] [place] [address] Care Team Providers Care Business Intelligence Administrator Name Role Phone JOSÉ FREEMAN Referring Provider [phone] Assessment Encounter Date Assessment Date Assessment LastModified [...] able to tolerate neuropathic medications. She reports Albion 4 times a day has only been [...] may be a good candidate for a WAAQR C7/T1. We will discuss to switch her [...] today. She weighs 527 lbs and reports [employer] [facility] does not have a machine that [...] results proceeding with a cervical epidural C7/T1. [email or web address] Not available 12/23/2018 13:42:52 Plan of Treatment Reminders Order Date Submit Date Provider Last Modified By Organization Details Last Modified Time Details Appointments None recorded. Lab drug screen, urine 2018 019 [email or web address] [address], [facility] [address], [place], [address], 9 13:46:34 drug confirmat ion, urine 2018 019 [facility], [facility], [address] [place] [address], [address], 9 10:06:23 drug screen, urine 2018 [address], [place], [address], 9 14:19:56 Referral None recorded. Procedures None recorded. Surgeries None recorded. Imaging MRI, cervical spine, w/o contrast 2018 019 [email or web address] [facility] ([facility]), [address] [place] [address] , [place], [address], 9 11:38:08 Medication Orders None recorded. Patient TargetsNo targets recorded. Patient Instructions Encounter Date Encounter Id Patient Instructions Last Modified By Organization Details Last Modified Time 11/22/2018 [id number] medical record request* [email or web address] Not available 01/16/2019 09:44:25 Opioid Risk Tool (ORT)* [email or web address] Not available 11/22/2018 14:19:56 Reason for Referral None Reported. Results Created Date Observation Date Name Description Value Unit Range Abnormal Flag Note LastModifiedBy Organization Detail LastModifiedTime 11/22/19 19 11/22/2018 drug scree n, urine THC: negati ve Not Available [facility] [address], [place], [address], 11/22/2018 13:51:47 11/22/1911/22/2018 drug scree n, urine Buprenorphin e: negati ve Not Available [address], [place], [address], 11/22/2018 13:51:47 11/22/1911/22/2018 drug scree n, urine TCA: positi ve Not Available [place] [address], [place], [address], 11/22/2018 13:51:47 11/22/1911/22/2018 drug scree n, urine Barbiturates : negati ve Not Available [place] [address], [place], [address], 11/22/2018 13:51:47 11/22/1911/22/2018 drug scree n, urine Benzodiazepi damari: negati ve Not Available [place] [address], [place], [address], 11/22/2018 13:51:47 11/22/19 19 11/22/2018 drug scree n, urine Methadone: negati ve Not Available [place] [address], [place], [address], 11/22/2018 13:51:47 11/22/19 19 11/22/2018 drug scree n, urine Amphetamines : negati ve Not Available [place] [address], [place], [address], 11/22/2018 13:51:47 11/22/19 19 11/22/2018 drug scree n, urine Morphine/Opi ates: negati ve Not Available [address], [place], [address], 11/22/2018 13:51:47 11/22/1911/22/2018 drug scree n, urine Oxycodone: negati ve Not Available [place] [address], [place], [address], 11/22/2018 13:51:47 11/22/1911/22/2018 drug scree n, urine MDMA: negati ve Not Available [address], [place], [address], 11/22/2018 13:51:47 11/22/1911/22/2018 drug scree n, urine Cocaine: negati ve Not Available [place] [address], [place], [address], 11/22/2018 13:51:47 11/22/1911/22/2018 drug scree n, urine Methamphetam ine: negati ve Not Available [place] [address], [place], [address], 11/22/2018 13:51:47 11/22/19 19 11/22/2018 Opioi d Risk Tool (ORT) * ORT 2 Not Available [address], [place], [address], 11/22/2018 13:52:02 11/25/19 19 11/25/2018 drug confi rmati on, urine abnormal status abnormal Not Available [facility], [address], [address], 12/05/2018 10:06:28 11/25/19 19 11/25/2018 speci men valid ity testi ng urine creatinine 324 mg/dL 44-355 normal Pres ribed Medic ation s: Albion (Hydr ocodo ne), Viji a (Preg abali n), Cital opram (Lisa lopra m) Not Available [facility], [address], [address], 12/05/2018 10:06:27 11/25/19 19 11/25/2018 ssri citalopram 502 POSITI VE NG/mL 75 normal Not Available [facility], [address], [address], 12/05/2018 10:06:27 11/25/19 19 11/25/2018 ssri N-desmethylc italopram 144 POSITI VE NG/mL 75 normal Not Available [facility], [address], [address], 12/05/2018 10:06:27 11/25/19 19 11/25/2018 ssri fluoxetine Not Detect ed NG/mL 75 normal Not Available [facility], [address], [address], 12/05/2018 10:06:27 11/25/19 19 11/25/2018 ssri norfluoxetin e Not Detect ed NG/mL 75 normal Not Available [facility], [address], [address], 12/05/2018 10:06:27 11/25/19 19 11/25/2018 ssri paroxetine Not Detect ed NG/mL 75 normal Not Available [facility], [address], [address], 12/05/2018 10:06:27 11/25/19 19 11/25/2018 ssri sertraline Not Detect ed NG/mL 75 normal Pres ribed Medic ation s: Albion (Hydr ocodo ne), Viji a (Preg abali n), Cital opram (Lisa lopra m) Not Available [facility], [address], [address], 12/05/2018 10:06:27 11/25/19 19 11/25/2018 amphe tamin es D/L - amphetamine Not Detect ed NG/mL 75 normal Not Available [facility], [address], [address], 12/05/2018 10:06:26 11/25/19 19 11/25/2018 amphe tamin es D/L - methamphetam ine Not Detect ed NG/mL 75 normal Not Available [facility], [address], [address], 12/05/2018 10:06:26 11/25/19 19 11/25/2018 amphe tamin es ritalinic acid Not Detect ed NG/mL 75 normal Pres ribed Medic ation s: Alb[place] (Hydr ocodo ne), Viji a (Preg abali n), Cital opram (Lisa lopra m) Not Available [facility], [address], [address], 12/05/2018 10:06:26 11/25/19 19 11/25/2018 gemini turat es butalbital Not Detect ed NG/mL 150 normal Not Available [facility], [address], [address], 12/05/2018 10:06:26 11/25/19 19 11/25/2018 gemini doron es phenobarbita l Not Detect ed NG/mL 150 normal Pres ribed Medic ation s: Albion (Hydr ocodo ne), Viji a (Preg abali n), Cital opram (Lisa lopra m) Not Available [facility], [address], [address], 12/05/2018 10:06:26 11/25/19 19 11/25/2018 thera peuti c drugs carisoprodol -soma Not Detect ed NG/mL 75 normal Not Available [facility], [address], [address], 12/05/2018 10:06:25 11/25/19 19 11/25/2018 thera peuti c drugs meprobamate Not Detect ed NG/mL 75 normal [facility] Medic ation s: [place] (Hydr ocodo ne), Viji a (Preg abali n), Cital opram (Lisa lopra m) Not Available [facility], [address], [address], 12/05/2018 10:06:25 11/25/19 19 11/25/2018 benzo diaze pines 7-aminoclona zepam Not Detect ed NG/mL 60 normal Not Available [facility], [address], [address], 12/05/2018 10:06:25 11/25/19 19 11/25/2018 benzo diaze pines alprazolam Not Detect ed NG/mL 60 normal Not Available [facility], [address], [address], 12/05/2018 10:06:25 11/25/19 19 11/25/2018 benzo diaze pines alpha-hydrox yalprazolam Not Detect ed NG/mL 60 normal Not Available [facility], [address], [address], 12/05/2018 10:06:25 11/25/19 19 11/25/2018 benzo diaze pines lorazepam Not Detect ed NG/mL 60 normal Not Available [facility], [address], [address], 12/05/2018 10:06:25 11/25/19 19 11/25/2018 benzo diaze pines nordiazepam Not Detect ed NG/mL 60 normal Not Available [facility], [address], [address], 12/05/2018 10:06:25 11/25/19 19 11/25/2018 benzo diaze pines oxazepam Not Detect ed NG/mL 60 normal Not Available [facility], [address], [address], 12/05/2018 10:06:25 11/25/19 19 11/25/2018 benzo diaze pines temazepam Not Detect ed NG/mL 60 normal Presc ribed Medic ation s: Albion (Hydr ocodo ne), Viji a (Preg abali n), Cital opram (Lisa lopra m) Not Available [facility], [address], [address], 12/05/2018 10:06:25 11/25/1911/25/2018 sid analo gs gabapentin Not Detect ed NG/mL 225 normal Not Available [facility], [address], [address], 12/05/2018 10:06:24 11/25/19 19 11/25/2018 sid analo gs pregabalin Not Detect ed NG/mL 225 abnormal Not Available [facility], [address], [address], 12/05/2018 10:06:24 11/25/19 19 11/25/2018 sid analo gs zaleplon Not Detect ed NG/mL 7.5 normal Not Available [facility], [address], [address], 12/05/2018 10:06:24 11/25/19 19 11/25/2018 sid analo gs zolpidem Not Detect ed NG/mL 75 normal Pres ribed Medic ation s: Albion (Hydr ocodo ne), Viji a (Preg abali n), Cital opram (Lisa lopra m) Not Available [facility], [address], [address], 12/05/2018 10:06:24 11/25/19 19 11/25/[address] antag buprenorphin e Not Detect ed NG/mL 7.5 normal Not Available [facility], [address], [address], 12/05/2018 10:06:24 11/25/19 19 11/25/[address] antag norbuprenorp rachele Not Detect ed NG/mL 37.5 normal Not Available [facility], [address], [address], 12/05/2018 10:06:24 11/25/19 19 11/25/[address] antag naloxone Not Detect ed NG/mL 75 normal Not Available [facility], [address], [address], 12/05/2018 10:06:24 11/25/19 19 11/25/[address] antag pentazocine Not Detect ed NG/mL 22.5 normal Pres ribed Medic ation s: [place] (Hydr ocodo ne), Viji a (Preg abali n), Cital opram (Lisa lopra m) Not Available [facility], [address], [address], 12/05/2018 10:06:24 11/25/19 19 11/25/2018 opiat es/op ioids codeine Not Detect ed NG/mL 75 normal Not Available [facility], [address], [address], 12/05/2018 10:06:23 11/25/19 19 11/25/2018 opiat es/op ioids fentanyl Not Detect ed NG/mL 6 normal Not Available [facility], [address], [address], 12/05/2018 10:06:23 11/25/19 19 11/25/2018 opiat es/op ioids norfentanyl Not Detect ed NG/mL 6 normal Not Available [facility], [address], [address], 12/05/2018 10:06:23 11/25/19 19 11/25/2018 opiat es/op ioids morphine Not Detect ed NG/mL 75 normal Not Available [facility], [address], [address], 12/05/2018 10:06:23 11/25/19 19 11/25/2018 opiat es/op ioids hydrocodone Not Detect ed NG/mL 75 abnormal Not Available [facility], [address], [address], 12/05/2018 10:06:23 11/25/19 19 11/25/2018 opiat es/op ioids norhydrocodo ne Not Detect ed NG/mL 75 abnormal Not Available [facility], [address], [address], 12/05/2018 10:06:23 11/25/19 19 11/25/2018 opiat es/op ioids hydromorphon e Not Detect ed NG/mL 75 abnormal Not Available [facility], [address], [address], 12/05/2018 10:06:23 11/25/19 19 11/25/2018 opiat es/op ioids oxycodone Not Detect ed NG/mL 37.5 normal Not Available [facility], [address], [address], 12/05/2018 10:06:23 11/25/19 19 11/25/2018 opiat es/op ioids noroxycodone Not Detect ed NG/mL 37.5 normal Not Available [facility], [address], [address], 12/05/2018 10:06:23 11/25/19 19 11/25/2018 opiat es/op ioids oxymorphone Not Detect ed NG/mL 75 normal Not Available [facility], [address], [address], 12/05/2018 10:06:23 11/25/19 19 11/25/2018 opiat es/op ioids meperidine Not Detect ed NG/mL 37.5 normal Not Available [facility], [address], [address], 12/05/2018 10:06:23 11/25/19 19 11/25/2018 opiat es/op ioids normeperidin e Not Detect ed NG/mL 37.5 normal Not Available [facility], [address], [address], 12/05/2018 10:06:23 11/25/19 19 11/25/2018 opiat es/op ioids methadone Not Detect ed NG/mL 75 normal Not Available [facility], [address], [address], 12/05/2018 10:06:23 11/25/19 19 11/25/2018 opiat es/op ioids methadone (EDDP) Not Detect ed NG/mL 75 normal Not Available [facility], [address], [address], 12/05/2018 10:06:23 11/25/19 19 11/25/2018 opiat es/op ioids propoxyphene Not Detect ed NG/mL 75 normal Not Available [facility], [address], [address], 12/05/2018 10:06:23 11/25/19 19 11/25/2018 opiat es/op ioids norpropoxyph nadja Not Detect ed NG/mL 75 normal Not Available [facility], [address], [address], 12/05/2018 10:06:23 11/25/19 19 11/25/2018 opiat es/op ioids tapentadol Not Detect ed NG/mL 37.5 normal Not Available [facility], [address], [address], 12/05/2018 10:06:23 11/25/19 19 11/25/2018 opiat es/op ioids tramadol Not Detect ed NG/mL 75 normal Not Available [facility], [address], [address], 12/05/2018 10:06:23 11/25/19 19 11/25/2018 opiat es/op ioids Z-qlv-mqnqfh -cis-tramado l Not Detect ed NG/mL 75 normal Presc ribed Medic ation s: Albion (Hydr ocodo ne), Viji a (Preg abali n), Cital opram (Lisa lopra m) Not Available [facility], [address], [address], 12/05/2018 10:06:23 11/25/19 19 11/25/2018 drug confi rmati on, urine comment: See Compon ents normal Presc ribed Medic ation s: Albion (Hydr ocodo ne), Viji a (Preg abali n), Cital opram (Lisa lopra m) Not Available [facility], [address], [address], 12/05/2018 10:06:23 12/24/1912/23/2018 drug scree n, urine THC: negati ve Not Available [place] [address], [place], [address], 12/23/2018 12:56:19 12/24/1912/23/2018 drug scree n, urine Buprenorphin e: negati ve Not Available [place] [address], [place], [address], 12/23/2018 12:56:19 12/24/1912/23/2018 drug scree n, urine TCA: positi ve Not Available [address], [place], [address], 12/23/2018 12:56:19 12/24/1912/23/2018 drug scree n, urine Barbiturates : negati ve Not Available [place] [address], [place], [address], 12/23/2018 12:56:19 12/24/1912/23/2018 drug scree n, urine Benzodiazepi damari: negati ve Not Available [place] [address], [place], [address], 12/23/2018 12:56:19 12/24/1912/23/2018 drug scree n, urine Methadone: negati ve Not Available [place] [address], [place], [address], 12/23/2018 12:56:19 12/24/1912/23/2018 drug scree n, urine Amphetamines : negati ve Not Available [place] [address], [place], [address], 12/23/2018 12:56:19 12/24/19 19 12/23/2018 drug scree n, urine Morphine/Opi ates: negati ve Not Available [address], [place], [address], 12/23/2018 12:56:19 12/24/19 19 12/23/2018 drug scree n, urine Oxycodone: negati ve Not Available [address], [place], [address], 12/23/2018 12:56:19 12/24/1912/23/2018 drug scree n, urine MDMA: negati ve Not Available [address], [place], [address], 12/23/2018 12:56:19 12/24/1912/23/2018 drug scree n, urine Cocaine: negati ve Not Available [address], [place], [address], 12/23/2018 12:56:19 12/24/1912/23/2018 drug scree n, urine Methamphetam ine: negati ve Not Available [address], [place], [address], 12/23/2018 12:56:19 12/25/1912/24/2018 speci men valid ity testi ng urine creatinine 57 mg/dL 44-355 normal Presc ribed Medic ation s: Baldwin codon e (Hydr ocodo ne), Amitr yptyl ine (Willie ripty line) , Escit alopr am (Lisa lopra m) Not Available [facility], [address], [address], 01/06/2019 15:22:37 12/25/19 19 12/24/2018 opioi ds commo nweal th buprenorphin e Not Detect ed NG/mL 7.5 normal Not Available [facility], [address], [address], 01/06/2019 15:22:37 12/25/19 19 12/24/2018 opioi ds commo nweal th norbuprenorp rachele Not Detect ed NG/mL 37.5 normal Not Available [facility], [address], [address], 01/06/2019 15:22:37 12/25/19 19 12/24/2018 opioi ds commo nweal th fentanyl Not Detect ed NG/mL 6 normal Not Available [facility], [address], [address], 01/06/2019 15:22:37 12/25/19 19 12/24/2018 opioi ds commo nweal th norfentanyl Not Detect ed NG/mL 6 normal Not Available [facility], [address], [address], 01/06/2019 15:22:37 12/25/19 19 12/24/2018 opioi ds commo nweal th methadone Not Detect ed NG/mL 75 normal Not Available [facility], [address], [address], 01/06/2019 15:22:37 12/25/19 19 12/24/2018 opioi ds commo nweal th codeine Not Detect ed NG/mL 75 normal Not Available [facility], [address], [address], 01/06/2019 15:22:37 12/25/19 19 12/24/2018 opioi ds commo nweal th morphine Not Detect ed NG/mL 75 normal Not Available [facility], [address], [address], 01/06/2019 15:22:37 12/25/19 19 12/24/2018 opioi ds commo nweal th hydrocodone 96 POSITI VE NG/mL 75 normal Not Available [facility], [address], [address], 01/06/2019 15:22:37 12/25/19 19 12/24/2018 opioi ds commo nweal th norhydrocodo ne 99 POSITI VE NG/mL 75 normal Not Available [facility], [address], [address], 01/06/2019 15:22:37 12/25/19 19 12/24/2018 opioi ds commo nweal th hydromorphon e Not Detect ed NG/mL 75 normal Not Available [facility], [address], [address], 01/06/2019 15:22:37 12/25/19 19 12/24/2018 opioi ds commo nweal th naloxone Not Detect ed NG/mL 75 normal Not Available [facility], [address], [address], 01/06/2019 15:22:37 12/25/19 19 12/24/2018 opioi ds commo nweal th pentazocine Not Detect ed NG/mL 22.5 normal Not Available [facility], [address], [address], 01/06/2019 15:22:37 12/25/19 19 12/24/2018 opioi ds commo nweal th meperidine Not Detect ed NG/mL 37.5 normal Not Available [facility], [address], [address], 01/06/2019 15:22:37 12/25/19 19 12/24/2018 opioi ds commo nweal th normeperidin e Not Detect ed NG/mL 37.5 normal Not Available [facility], [address], [address], 01/06/2019 15:22:37 12/25/19 19 12/24/2018 opioi ds commo nweal th oxycodone Not Detect ed NG/mL 37.5 normal Not Available [facility], [address], [address], 01/06/2019 15:22:37 12/25/19 19 12/24/2018 opioi ds commo nweal th oxymorphone Not Detect ed NG/mL 75 normal Not Available [facility], [address], [address], 01/06/2019 15:22:37 12/25/19 19 12/24/2018 opioi ds commo nweal th propoxyphene Not Detect ed NG/mL 75 normal Not Available [facility], [address], [address], 01/06/2019 15:22:37 12/25/19 19 12/24/2018 opioi ds commo nweal th norpropoxyph nadja Not Detect ed NG/mL 75 normal Not Available [facility], [address], [address], 01/06/2019 15:22:37 12/25/19 19 12/24/2018 opioi ds commo nweal th tapentadol Not Detect ed NG/mL 37.5 normal Not Available [facility], [address], [address], 01/06/2019 15:22:37 12/25/19 19 12/24/2018 opioi ds commo nweal th tramadol Not Detect ed NG/mL 75 normal Not Available [facility], [address], [address], 01/06/2019 15:22:37 12/25/19 19 12/24/2018 opioi ds commo nweal th W-muu-lwjgyh -cis-tramado l Not Detect ed NG/mL 75 normal Not Available [facility], [address], [address], 01/06/2019 15:22:37 12/25/19 19 12/24/2018 opioi ds commo nweal th noroxycodone Not Detect ed NG/mL 37.5 normal Not Available [facility], [address], [address], 01/06/2019 15:22:37 12/25/19 19 12/24/2018 opioi ds commo nweal th methadone (EDDP) Not Detect ed NG/mL 75 normal Presc ribed Medic ation s: Baldwin codon e (Hydr ocodo ne), Amitr yptyl ine (Willie ripty line) , Escit alopr am (Lisa lopra m) Not Available [facility], [address], [address], 01/06/2019 15:22:37 12/25/19 19 12/24/2018 opiat es, quant itati ve, urine comment: See Compon ents normal Presc ribed Medic ation s: Baldwin codon e (Hydr ocodo ne), Amitr yptyl ine (Willie ripty line) , Escit alopr am (Lisa lopra m) Not Available [facility], [address], [address], 01/06/2019 15:22:36 Result Notes None recorded. Problems Name Problem SNOMED Code Status Onset Date Resolution Date Notes Provider Name and Address Organization Details Recorded Time Neck pain 13667355 Active 2018 DOLORES Law[place] - [facility] 9 14:12:01 Cervical radiculopathy 07980139 Active 2018 DOLORES Gallardo - [facility] 9 14:19:26 Problem Notes None recorded. Procedures Surgical History Date Name Laterality Status Provider Name and Address Organization Details Recorded Time Knee Surgery completed Kendy Messer [facility] 11/22/2018 13:41:44 Joint Replacement completed Kendy Messer [facility] 11/22/2018 13:41:44 Carpal Tunnel Release completed Kendy Messer [facility] 11/22/2018 13:41:44 Imaging Results None recorded. Procedure Notes None recorded. Medical Equipment None Reported. Allergies Allergen ID Allergen Name Allergen Category Reaction Reaction Severity Criticality Documentation Date Start Date Code Code System Note Provider Name and Address Organization Details Recorded Time 52601 ibuprofen medicatio n itching nausea rash Not available Not available Not available Not available 11/22/2018 5640 RxNorm Kendy servin [facility] 9 13:41:22 Medications Name Sig Start [...] Updated DateTime 9 167.64 cm 85.1 kg/m2 077674. 18 g 97 % 99 /min 154/74 mm[Hg] Kendy Ballardguson [facility] 9 13:54:48 Date Recorded Body height Body mass index (BMI) Body weight Heart rate Oxygen saturation Systolic And Diastolic Provider Name and Address Organization Details Last Updated DateTime 9 167.64 cm 85.1 kg/m2 427325. 18 g 69 /min 99 % 134/84 mm[Hg] Kelly Dickson [facility] 9 13:00:58 Social History Question Answer Notes LastModified by Organizat ion Details LastModified Time Tobacco Smoking Status Former Smoker Kendy servin [facility] [facility] 11/22/2018 13:41:38 What Is Your Level Of Caffeine Consumption? Moderate [email or web address] Information not available 11/22/2018 How Much Tobacco Do You Chew? None [email or web address] Information not available 11/22/2018 Are You Deaf Or Do You Have Serious Difficulty Hearing? No [email or web address] Information not available 11/22/2018 Which Illicit Or Recreational Drugs Have You Used? Prescriptions Information not available 11/22/2018 Education 12 Information no t available 12/23/2018 Hard Of Hearing Or Deaf In One Or Both Ears? No [email or web address] Information not available 11/22/2018 Prescription Drug Abuse No Information not available 12/23/2018 Disability Yes Information no t available 12/23/2018 History Of Sexual Abuse No Information not available 12/23/2018 Marital Status Single [email or web address] Informati on not available 11/22/2018 What Was The Date Of Your Most Recent Tobacco Screening? 12/23/2018 Information not available 04/23/2019 General Stress Level Medium [email or web address] Information not available 11/22/2018 Has Tobacco Cessation Counseling Been Provided? No Information not available 12/23/2018 Do You Have Difficulty Walking Or Climbing Stairs? Yes [email or web address] Information not available 11/22/2018 Sex: Unknown Functional Status Question Answer Note LastModified by Organizat ion Details LastModified Time What is your level of alcohol consumption? None Information not available 11/22/2018 Are you able to walk independently without assistance or assistive devices? [email or web address] Information not available 11/22/2018 Do you have difficulty doing errands alone? Yes [email or web address] Information not available 11/22/2018 What is your occupation? Unemployed Information not available 12/23/2018 Do you have difficulty dressing, bathing, grooming, or toileting? No [email or web address] Information not available 11/22/2018 What is your exercise level? Occasional Information not available 11/22/2018 Mental Status Question Answer Note LastModified by Organization D etails LastModified Time Do you have difficulty concentrating, remembering or making decisions? No [email or web address] Information no t available 11/22/2018 Family History Relationship Description Onset Age of this Age Resolved Age Notes LastModified by Organization Details LastModified Time Maternal Grandmother Hypertensive disorder [email or web address] Not available 11/02 13:41:28 Father Hypertensive disorder [email or web address] Not available 11/02 13:41:28 Mother Fibromyalgia [email or web address] Not av ailable 11/22/2018 13:41:28 Mother Hypertensive disorder [email or web address] Not available 11/02 13:41:28 Brother Hypertensive disorder [email or web address] Not available 11/02 13:41:28 Medical History Condition Response Bipolar Disease N Coronary Artery Disease N Seizure Disorder N Gout N Osteoarthritis N Head Trauma/Injury N Hernia N Depression Y Anemia N Heart Attack ([place]) N Anxiety Disorder Y Diabetes Y Cardiomyopathy [...] ICD10 Code Diagnosis IMO Codes Diagnosis Note [id number] Juaquin Arteaga DO [place] [address] [place] [address] 11/22/2018 13:15:40 11/22/2018 14:54:03 Long-term drug therapy [id number] Z79.899 ORT and PHQ-9 testing was completed [...] is initiated in the future. Neck pain [id number] M54.2 Cervical radiculopathy [id number] M54.12 Medication monitoring 39 8201966 Z79.899 [id number] Austin Stoner MD [place] [address] [place] [address] 12/23/2018 12:50:46 12/23/2018 14:47:38 Cervical radiculopathy [id number] M54.12 Long-term drug therapy [id number] Z79.899 ORT and PHQ-9 testing was completed [...] initiated in the future. Medication monitoring 39 [id number] Z79.899 Health Concerns Section Related Observation LastModified by Organization Detai ls LastModified Time None Recorded Concern Status LastModified by Organization Details LastModified Time None Recorded Advance Directives Directive None Recorded Payers Insurance Date Sequence Insurance Name Policy Number Policy Gonzales Covered Member ID Gonzales Member ID Guarantor Name 01/18/2019 1 [place] Seema Delacruz [id number] Seema Delacruz 01/18/2019 2 AETNA [facility] (MEDICAID HMO) Seema Delacruz [id number] Seema Delacruz 01/03/2019 2 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 [...] aggravating factors, (upper extremity activities). 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 (cane),unable to work., [...] reportsyes. For aggravating factors, (upper extremity activities). Austin Stoner MD [address] [place] [address], [phone], formerly [facility] 12/24/2018 12:57:11 OBGyn Episode No OBEpisode recorded.
--- OUTSIDE RECORDS SUMMARY | 2025-09-22 10:38 | XMS_ITS | Encounter Summary ---
Author Organization Healthcare Address [address] [place] [address] Care Team Providers Care Early Childhood Name Role Phone Faustino Amador MD Primary Care Provider [phone] Reason for Referral * Consultation (Routine) - Closed Specialty Diagnoses / Procedures Referred By Betito carty Referred To Contact Plastic Surgery Diagnoses Excess skin Khurram Chanel APRN [address] [place] [address] Phone: tel: fax: Referral ID Status Reason Start Date Expiration Date V isits Requested Visits Authorized [id number] Closed Specialty Services Required 11/29/2021 05/31/2023 1 1 Encounter Details Date Type Department Care Team (Late st Contact Info) Description 11/29/2021 Community [facility] [address] [place] [address] Khurram Chanel APRN [address] [place] [address] Excess skin (Primary Dx) Social History Tobacco [...] Primary documented in this encounter Care Teams Early Childhood Relationship Specialty Start Date End Date Faustino Amador MD [address] [place] [address] PCP - General 03/14/21 documented as of this encounter
--- OUTSIDE RECORDS SUMMARY | 2025-09-22 10:38 | XMS_ITS | Clinical Summary ---
[facility] Address [address] [place] [address] Care Team Providers Care Technical Designer Name Role Phone Unavailable Primary Care Provider [...] Payer (Ef fective 2002-Present) Name:Seema Delacruz Member ID:[id number] Relation to Subscriber:Self Name:Seema Delacruz Subscriber ID:[id number] Payer ID:[id number] Group ID:Not on file Type:Not on file Address: [id number]
--- OUTSIDE RECORDS SUMMARY | 2025-09-22 10:38 | XMS_ITS | Clinical Summary ---
Author Organization [facility] Address [address] [place] [address] Phone Care Team Providers Care Lumber Piler Operator Name Role Phone Unavailable Primary Care [...] Impressions 11/19/2023 7:29 AM EST Benign finding ([id number]) ~ RECOMMENDATION: Routine screening mammogram in 1 [...] the next mammogram, in accordance with the [employer] and the Society of Breast Imaging recommendations. Narrative 11/19/2023 7:29 AM EST Procedure:MM MAMMO DIGITAL EULALIA SCREEN BILAT ~ Reason for exam: screening, asymptomatic. Z12.31-Encounter for screening mammogram for malignant neoplasm of [id number]-CM ~ MM MAMMO DIGITAL EULALIA SCREEN BILAT [...] for screening mammogram for malignant neoplasm of [id number]-[id number]-09-CM ~ MM MAMMO DIGITAL EULALIA SCREEN BILAT [...] evidence of malignancy. ~ IMPRESSION: Benign finding ([id number]-[id number]-9) ~ RECOMMENDATION: Routine screening mammogram in 1 [...] the next mammogram, in accordance with the [employer] and the Society of Breast Imaging recommendations. us Not In [facility] Provider IMG MAMMOGRAPHY ORDERABLES Final Result from Last 3 Months or Most Recently Relevant to Health Maintenance [place] [place] [address] AET[employer] MEDICARE HMO
--- NOTE | 2025-09-22 11:15 | CA_ITS ---
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 Helper: JAMMIE Burnham, RVS Ht: 5 ft 6 in Wt: 247lbs BSA: 2.19 BP: 199/96 mmHg Rhythm: Irregular Indications: Smoker, Abn EKG, Pre-op, COPD, DM=neuropathy Echo Enhancing Agent Comments: TDS: Patient neuropathy inhibited her ability to lay still 2D Dimensions Left Atrium 3.56 cm LA Volume 80.40 mL LA Volume Index 35.90 mL/m2 (M/F) 16-34 M-Mode Dimensions RVDd 3.26 cm (0.9-2.6) LA Diam 4.52 cm (1.9-4.0) LVDd 4.49 cm (3.5-5.7) LVDs 2.80 cm (3.5-5.7) IVSd 1.15 cm (0.6-1.1) PWd 1.04 cm (0.6-1.1) EF (Teich) 67.80% EPSs 0.24 cm FS 37.60% EDV (Teich) 92.00 mL TAPSE 2.56 (<1.7) ESV (Teich) 29.60 mL LV Diastology E Decel Time 253 (160-240 msec) E/A Ratio 1.13 MED A' 9.20 cm/s LAT A' 15.20 cm/s Aortic Valve NEGRA Index 0.94 cm2/m2 AoV Peak Ronal. 165.0 (50-130 cm/s) AO Peak GR. 10.80 mmHg AO Mean GR. 5.60 (<5 mmHg) AO VTI 36.2 (18-25 cm) NEGRA (VTI) 2.11 (2.5-4.5 cm2) Mitral Valve MV A Velocity 97.0 (40-130 cm/s) E/A Ratio 1.13 Pulmonary Valve PV Peak Velocity 83.0 (50-150 cm/s) UT End VMAX 93.0 cm/s Tricuspid Valve TR P. Velocity 324.00 cm/s RAP Estimate 10.00 mmHg RVSP 51.90 mmHg Left Ventricle The left ventricle is normal size. Left ventricular systolic function is normal. The left ventricular ejection fraction is within the normal range. There is increased left ventricular wall thickness. There is normal LV segmental wall motion. The left ventricular diastolic function is normal. LVEF is 55% Right Ventricle The right ventricle is mildly dilated. The right ventricular systolic function is normal. Atria The left atrium is mildly dilated. The right atrium is mildly dilated. Color Doppler demonstrates evidence of left to right interatrial shunt. Aortic Valve The aortic valve is mildly thickened. There is no hemodynamically significant aortic valvular stenosis. Trace aortic regurgitation is present. Mitral Valve The mitral valve is normal in structure. No evidence of mitral valve stenosis. Trace mitral regurgitation is present. Tricuspid Valve The tricuspid valve leaflets are thin and pliable. Mild tricuspid regurgitation. RVSP is 20-25 mmHg. Pulmonic Valve The pulmonary valve is grossly normal in structure. Trace pulmonic valve regurgitation is present. Great Vessels The aortic root is normal in size. IVC is normal in size and collapses >50% with inspiration. Pericardium There is no pericardial effusion. Other Information Study Quality: Fair Conclusion Normal biventricular systolic function. Mild RV dilation. Mild biatrial dilation. Mild TR. Color Doppler demonstrates evidence of left to right interatrial shunt. In the setting of interatrial shunt and RV dilation, further evaluation with ALISSA and cardiac MRI (shunt protocol) are suggested, if clinically feasible. Electronically signed by : Yenny Morfin MD 10/02/2025 13:37:43
[2025-09-22] MEDS: METOPROLOL TARTRATE 50MG TABLET PO (11:37)
[2025-09-22] MEDS: IVABRADINE HCL 7.5MG TABLET PO (11:37)
[2025-09-22 11:56] LABS: Chloride 101 mmol/L (98-107); Potassium 4.6 mmoL/L (3.5-5.1); Sodium 136 mmol/L (136-145)
[2025-09-22 11:58] LABS: Blood Urea Nitrogen 15 mg/dl (7-17); Creatinine Clearance Estimated 74 mL/min (50-200); Creatinine,Serum 0.80 mg/dl (0.52-1.04); Estimated Glomerular Filt Rate 74 ml/min (>60); GFR (African American) 90 ML/MIN (>60)
[2025-09-22 11:59] LABS: Anion Gap 7.6 mEq/L (5-15); Calcium 9.2 mg/dl (8.4-10.2); Carbon Dioxide 32 mmol/L (22.0-30.0); Glucose 173 mg/dl (74-100)
[2025-09-22] MEDS: NITROGLYCERIN 0.4MG SL TABLET SL (12:20)
[2025-09-22] MEDS: SODIUM CHLORIDE 0.9% 10ML SYR (RAD ONLY) 10 ML IV (12:52)
[2025-09-22] MEDS: 0.9 % SODIUM CHLORIDE 50 ML VIAL IV (12:52)
[2025-09-22] MEDS: IOPAMIDOL-370 (76%);100ML BOTTLE 85 ML IV (12:52)
--- NOTE | 2025-09-22 12:56 | XR_ITS ---
FINAL REPORT CLINICAL HISTORY: RA pain, hx nodisplaced fibular fx COMPARISON: None FINDINGS: Three views of the right ankle show no evidence of acute displaced fracture or dislocation of the visualized bony architecture. Osteopenia is noted. There are mild degenerative changes. No evidence of bony destruction. IMPRESSION: Degenerative changes without acute bony abnormality. Reviewed, Interpreted and Dictated by Yoni Szymanski MD Transcribed by Stacy Gray Authenticated and . [facility]
--- NOTE | 2025-09-22 12:56 | XR_ITS ---
FINAL REPORT CLINICAL HISTORY: Evaluate for bone infection..pain COMPARISON: 07/06/2025 FINDINGS: Three views of the right foot show no evidence of acute displaced fracture or dislocation of the visualized bony architecture. There is cortical indistinctness and minimal sclerosis of the lateral cuboid, similar to the prior study, at the site of open wound. Findings are probably related to old infection or old postoperative change. No active bony destruction identified. There are surgical changes from fifth digit amputation and fourth proximal metatarsal resection. IMPRESSION: Stable chronic changes as above. Reviewed, Interpreted and Dictated by Yoni Szymanski MD Transcribed by Stacy Gray Authenticated and [facility]
--- NOTE | 2025-09-22 13:00 | CT_ITS ---
APPROVED REPORT Industrial Engineer: CLINICAL INDICATION Chest Pain TECHNIQUE Image Acquisition: A 128 slice MDCT scanner ([place] View) was used for data acquisition. A noncontrast coronary calcium scan was performed. A CT attenuation threshold of 130 Hounsfield units (HU) was used for the detection of calcium in contiguous voxels of 1 sq mm in area to be counted as individual lesions. Bolus tracking in the ascending aorta with a threshold of 180 HU was performed. Immediately afterwards, ECG synchronized cardiac CT was then performed from the cardiac base to apex using retrospective gating with ECG tube current modulation. A total of 85 mL of Isovue 370 mg/mL contrast medium was administered at 5 mL/sec followed by a saline flush using a biphasic injection protocol. A tube voltage of 120 KVp was used. The patient received the following medications prior to the cardiac CT. 75 mg of oral metoprolol 15 mg of oral ivabradine 0.4 mg of sublingual nitroglycerin The average heart rate at the time of acquisition was 64 bpm and regular. Image Reconstruction Transaxial images were reconstructed at 0.67 mm slide thickness. Data was reviewed interactively on an advanced workstation capable of 2 and 3-dimensional displays in all conventional reconstruction formats, including multiplanar reformations, maximum intensity projections, curved multiplanar reformations, and volume rendered reconstructions. When applicable, selected routine images describing the relevant coronary anatomy and pathology were saved and sent to PACS. Complications None Technical Quality Overall image quality was suboptimal due to significant motion. Coronary artery opacification was suboptimal. Total DLP (Dose-Length Product) is 2114.5 mGy-cm. The reported value represents the total of one or more individual components during the CT acquisition of this date and at this time, and as such, the same value may appear in more than one CT report depending on the interpreting/reporting physicians. COMPARISON None FINDINGS CT Coronary Calcium Scoring LMA (Left Main Artery) = 0 LAD (Left Anterior Descending) = 88 LCX (Left Coronary Circumflex) = 0 RCA (Right Coronary Artery) = 0 Total Calcium Score = 88 using the AJ-130 method. The observed calcium score of 88 is at 76th percentile for subjects of the same age, sex, and race/ethnicity. The interpretation of the calcium heart score is based on the following continuum*: 0 = no calcified plaque detected (risk of coronary artery disease is very low ??? less than 5%) 1-10 = calcium detected in extremely minimal levels (risk of coronary diseases is still low ??? less than 10%) 11-100 = mild levels of plaque detected with certainty (mild or minimal narrowing of heart arteries is likely) 101-400 = definite,at least moderate levels of plaque detected (relatively high risk of a heart attack within 3-5 years) >401-999 = extensive levels of plaque detected (high risk of heart attack, high levels of vascular disease are present, high likelihood of at least one significant coronary narrowing) *The calcium heart score quantifies the burden of coronary calcification/plaque in the coronary arteries. The calcium heart score is not able to evaluate the presence or burden of non-calcified (i.e. soft) plaque. There is also calcification in the ascending and descending thoracic aorta. Coronary CT Angiography The coronary arterial system is right dominant. Quantitative Stenosis Grading: Left Main (LM): The left main originates normally from the left sinus of Valsalva. The LM bifurcates into the left anterior descending artery and left circumflex artery. The LM is patent with no evidence of atherosclerosis. Left Anterior Descending (LAD) and Diagonal Branches: The LAD gives off 2 diagonal branch(es). There is mixed calcified/noncalcified plaque in the proximal LAD segment with up to 25-49% luminal stenosis. There is no evidence of LAD-myocardial bridge. Left Circumflex (LCX) and Obtuse Marginals (OM): The LCX gives off 1 Obtuse Marginal (OM) branch(es). The LCX and its branches are grossly patent with no evidence of atherosclerosis. Right Coronary Artery (RCA): The RCA originates normally from the right sinus of Valsalva. The RCA gives off a posterior descending artery (PDA) and posterolateral (PL) branches. The RCA and its branches are grossly patent with no evidence of atherosclerosis. Non-Coronary Cardiac Findings: Analysis of the left ventricular (LV) structure and function was performed after 3-D reconstruction of the LV from axial images, with user-corrected automatic contouring for assessment of LV volumes and user-defined reconstruction from oblique planes for measurement of 3-D cardiac structure and function. -The left ventricle systolic function is normal. -There is no left atrial appendage filling defect. Two right pulmonary veins and two left pulmonary veins drain normally into the left atrium. -No pericardial thickening or calcification. -Central and branch pulmonary arteries in the [id number] are unremarkable. -Thoracic aorta within the visualized thoracic aortic-branches in the hboyw-lm-omin is unremarkable. Extracardiac Structures No significant extra-cardiac findings. Note, however, that this study is focused on the cardiac findings. IMPRESSION -Technically difficult study due to significant motion and suboptimal imaging and contrast opacification. This may affect the diagnostic interpretation of the study findings. -Presence of coronary calcification with an Agatston score = 88 using the AJ-130 method. -The observed calcium score of 88 is at 76th percentile for subjects of the same age, sex, and race/ethnicity. -Mild non-obstructive atherosclerotic coronary disease, with no obvious evidence of significant flow-limiting atherosclerosis of the coronary arteries. -CAD-RADS 2. Management recommendations per ACC/AHA guidelines*, as clinically appropriate. *Recommendations: CAD RADS 0: Reassurance. Consider non-atherosclerotic causes of chest pain. CAD RADS 1: Consider non-atherosclerotic causes of chest pain. Consider preventive therapy and risk factor modification. CAD RADS 2: Consider non-atherosclerotic causes of chest pain. Consider preventive therapy and risk factor modification, particularly for patients with nonobstructive plaque in multiple segments. CAD RADS 3: Consider further functional testing. Consider symptom-guided anti-ischemic and preventive pharmacotherapy as well as risk factor modification per published guideline statements. CAD RADS 4A: Consider further functional testing or invasive coronary angiography with revascularization per published guideline statements. Consider symptom-guided anti-ischemic and preventive pharmacotherapy as well as risk factor modification per published guideline statements. CAD RADS 4B: Invasive coronary angiography recommended with revascularization per published guideline statements. Consider symptom-guided anti-ischemic and preventive pharmacotherapy as well as risk factor modification per published guideline statements. CAD RADS 5: Consider invasive angiography and/or viability assessment with revascularization per published guideline statements. Consider symptom-guided anti-ischemic and preventive pharmacotherapy as well as risk factor modification per published guideline statements. CRITICAL RESULT None COMMUNICATION Per this written report The coronary and cardiac findings of this CCTA were reviewed, reported, and signed by Madhu Morfin MD (Partner Alliance Manager) Conclusion Electronically signed by : Yenny Morfin MD 09/29/2025 18:56:35
== END 2025-09-22 23:59 | disposition home or self-care (01) ==
LOC: RT 10:36 → RAD 11:19
PROVIDERS: PCP Nurse Practitioner; Visit Provider Nurse Practitioner
DX: Z01.810 Encounter for preprocedural cardiovascular examination (principal); I07.1 Rheumatic tricuspid insufficiency; I11.9 Hypertensive heart disease without heart failure; M19.071 Primary osteoarthritis, right ankle and foot; I25.10 Atherosclerotic heart disease of native coronary artery without angina pectoris; S82.831A Other fracture of upper and lower end of right fibula, initial encounter for closed fracture; E11.621 Type 2 diabetes mellitus with foot ulcer; L97.512 Non-pressure chronic ulcer of other part of right foot with fat layer exposed; M86.671 Other chronic osteomyelitis, right ankle and foot; R93.6 Abnormal findings on diagnostic imaging of limbs; R94.31 Abnormal electrocardiogram [ECG] [EKG]; Z82.49 Family history of ischemic heart disease and other diseases of the circulatory system; Z89.421 Acquired absence of other right toe(s); E11.40 Type 2 diabetes mellitus with diabetic neuropathy, unspecified; J44.9 Chronic obstructive pulmonary disease, unspecified; F17.200 Nicotine dependence, unspecified, uncomplicated; R93.1 Abnormal findings on diagnostic imaging of heart and coronary circulation
CPT/HCPCS: 73610; 73630; 75574; 80048; 93306; Q9967